=== PATIENT | female | born 1965 | race Caucasian/White ===

== ENCOUNTER 2022-07-20 09:49 | Outpatient (OUT) | payer OTHER, MEDICARE, SELFPAY ==
--- NOTE | 2022-07-20 10:27 | PM.CN ---
Consult Note: HPI Data of Consult Patient: known to practice within the last 3 years Consult date: 07/20/22 Requesting Physician: JOSE CHISHOLM NP Primary Care Provider: SHERINE EDWARDS Consult Narrative Reason for consult: back pain Narrative: She is here for f/u of low back and right buttock pain. [id number]. She has had TPI and SI injections in the past with good relief. Last SI joint injection 06/2021. She would like to schedule another SI joint inject. No new sensorimotor sx or bowel or bladder issues. No radiculopathy. Pin medication regimen controls her pain and assists in the ability to perform ADLs. cc:: CC: JOSE CHISHOLM NP Review of Systems ROS Status of ROS 10 or more systems reviewed and unremarkable except as noted in history and below Musculoskeletal Reports: back pain Exam Constitutional Documenting provider has reviewed patient's vital signs: yes Common normals: no apparent distress, oriented x3, no limitations, healthy appearing, alert and well nourished General appearance: cooperative, comfortable and well developed Nutritional appearance: obese Orientation/consciousness: Yes awake, Yes oriented to person, Yes oriented to place and Yes oriented to time [facility] Common normals: hearing grossly normal bilaterally, external ears normal, nasal mucous membranes and turbinates normal and moist oral mucous membranes Respiratory Common normals: normal respiratory effort, no retractions and no use of accessory muscles Effort & inspection: able to speak in complete sentences and symmetric chest movement Back & Pelvis Lumbar spine/lower back: normal to inspection, ROM limited, pain with ROM, paraspinal muscle tenderness and other soft tissue findings (positive paris right, positive facet loading, positive gaenslens right, ) Extremity Common normals: normal to inspection, full ROM, normal capillary refill and no pedal edema Other: muscle strength 5/5 bilat LE with intact sensation, positive thigh thrust right Assessment and Plan Assessment and Plan (1) Sacroiliac joint pain: (2) Lumbar spondylosis: (3) Muscle spasm: Plan schedule right SI joint injection percocet refill narcan rx
== END 2022-07-20 09:50 ==
PROVIDERS: PCP Family Medicine; Visit Provider Nurse Practitioner
DX: M47.816 Spondylosis without myelopathy or radiculopathy, lumbar region (principal); M62.830 Muscle spasm of back; M53.3 Sacrococcygeal disorders, not elsewhere classified
CPT/HCPCS: G0463

== ENCOUNTER 2022-08-07 09:22 | Day surgery (SDC) | payer OTHER, MEDICARE, SELFPAY ==
[2022-08-07 10:27] LABS: Glucometer 156 mg/dL (74-106)
[2022-08-07 10:29] VITALS: BP 121/72; PULSE 108; RESP 19; TEMP 36.6; O2SAT 100
[2022-08-07] MEDS: METHYLPREDNISOLONE ACETATE 40 MG/ML VIAL 20 MG INJ (11:13)
[2022-08-07] MEDS: BUPIVACAINE HCL 0.25% PF 25 MG/10 ML VIAL INJ (11:14)
--- NOTE | 2022-08-07 11:27 | W.PM.PROCNOT ---
Date of procedure: 08/07/22 Procedure: Right sacroiliac joint injection - diagnostic Preop diagnosis includes pain secondary to Sacroiliitis Postop diagnosis same Performed under fluoroscopic guidance Immediate complications none Anesthesia:none Solution used for injection: 2.5 milliliters 0.25% Marcaine Time out process compliant After informed consent obtained patient was brought to the procedure room placed in the prone position skin overlying the area was prepped and draped in a sterile fashion using betadine. 25 gauge spinal needle Insert over each of the target areas identified in fluoroscopy corresponding needles were advanced Under fluoroscopic guidance until the target/targets encountered , no indication of intravascular or Intraneuronal needle tip placement. Solution injected .needles removed post procedurally. patient transferred to recovery room in stable condition to be discharged home after meeting criteria Surgeon: Kenyon Bradford
[2022-08-07 11:28] VITALS: BP 177/90; BP 184/87; PULSE 95; PULSE 98; RESP 20; O2SAT 90; O2SAT 94
== END 2022-08-07 11:18 | disposition home or self-care (01) ==
LOC: SURGOUT 09:23
PROVIDERS: PCP Family Medicine; Visit Provider Anesthesiology Pain Medicine
DX: M46.1 Sacroiliitis, not elsewhere classified (principal)
CPT/HCPCS: 27096; 36415; 82948; J1030

== ENCOUNTER 2022-08-28 13:56 | Outpatient (OUT) | payer OTHER, MEDICARE, SELFPAY ==
--- NOTE | 2022-08-28 | CONS_ITS ---
CONSULTATION DATE: ??08/28/2022 TO:? Jonathan Bean M.D. CHIEF COMPLAINT:? Includes left sided neck pain, shoulder pain. HISTORY:? She reports the pain as being 5-7/10 pain, sharp in character, increased with activities such as lifting maneuvers, pushing/pulling maneuvers and cervical extension.? She feels most comfortable in the semi-recumbent position.? She has denied any changed in bowel and bladder habits or new sensorimotor changes in her upper extremities. EXAM:? Her examination is notable for patient having no clinical radiculopathy or myelopathy involving her upper extremities.? Patient has severe pain with cervical facet loading maneuvers and left side appeared to be most severe at approximately the C2-3, C3-4 level, with associated myofascial spasm of the cervical paravertebral muscles, also on the left side. RECOMMENDATIONS:? I recommend she proceed with cervical spine films.? I have placed a skin marker to identify which level was causing most of her pathology, and we will target those two levels, after reviewing her imaging study.? I have also increased the baclofen 10 mg pills, 1-2 pills t.i.d. as tolerated.? I have gone over the details of the procedure with the patient.? All her questions answered.? She agrees to proceed with the outlined plan. As part of providing excellent, safe, comprehensive care, the following was completed at our patient's visit: 1. A medication reconciliation and review to ensure accurate knowledge of current/active medications, including asking our patients to inform us about any juem-gru-bebawgq medications or herbal remedies/nutritional supplements/alternative remedies. 2. A review to specifically ensure our patients have had annual screening for: elevated body mass index (BMI, see intake chart for exact total), tobacco use, screening for depression, and screening for unhealthy alcohol use.? When screening is concerning, patients are provided with education and the specific recommendation to discuss the concerning health issue and treatment options with their primary care provider.? GINA
== END 2022-08-28 13:57 | disposition home or self-care (01) ==
LOC: PM 13:56
PROVIDERS: PCP Family Medicine; Visit Provider Nurse Practitioner
DX: M54.2 Cervicalgia (principal); M25.512 Pain in left shoulder
CPT/HCPCS: G0463

== ENCOUNTER 2022-08-28 15:25 | Outpatient (OUT) | payer OTHER, MEDICARE, SELFPAY ==
--- NOTE | 2022-08-28 16:17 | XR_ITS ---
[facility] [place] [id number] Patient Name: KARINA DE OLIVEIRA MRN: [id number] date: 1965 Sex: F Assigned Patient Location: [facility] Current Patient Location: Accession/Order Number: [id number] Exam Date: 08/28/2022 16:50 Report Date: 08/29/2022 07:43 At the request of: BILLY ALANIS Procedure: XR cervical spine w flex/ext EXAMINATION: XR cervical spine w flex/ext HISTORY: CERVICAL SPONDYLOSIS COMPARISON: No relevant comparison available. FINDINGS: BONES: Neutral projection demonstrates normal alignment with no acute fracture or spondylolisthesis. Moderate to severe degenerative spondylosis. Mnxl-za-woebpazl facet osteoarthropathy DISC SPACES: Moderate multilevel disc space narrowing PARASPINOUS: Negative. No paraspinous abnormality is seen. OTHER: No transient spondylolisthesis with flexion or extension XR/XR cervical spine w flex/ext IMPRESSION: Moderate to severe degenerative changes with no dynamic instability Electronically authenticated by: RYAN GOLDMAN Date: 08/29/2022 07:43
== END 2022-08-28 15:26 | disposition home or self-care (01) ==
LOC: RAD 15:34
PROVIDERS: Visit Provider Anesthesiology Pain Medicine
DX: M47.812 Spondylosis without myelopathy or radiculopathy, cervical region (principal); M54.2 Cervicalgia; M25.512 Pain in left shoulder
CPT/HCPCS: 72052; G0463

== ENCOUNTER 2022-10-30 06:58 | Day surgery (SDC) | payer OTHER, MEDICARE, SELFPAY ==
[2022-10-30 07:19] LABS: Glucometer 165 mg/dL (74-106)
[2022-10-30 07:23] VITALS: BP 107/67; PULSE 96; RESP 16; TEMP 36.6; O2SAT 93
[2022-10-30 07:55] VITALS: RESP 20
[2022-10-30 08:00] VITALS: BP 168/101; PULSE 102; O2SAT 93
[2022-10-30] MEDS: BUPIVACAINE HCL 0.25% PF 25 MG/10 ML VIAL 4 ML INJ (08:03)
[2022-10-30 08:05] VITALS: BP 180/108; PULSE 109; O2SAT 93
--- NOTE | 2022-10-30 08:16 | W.PM.PROCNOT ---
Date of procedure: 10/30/22 Pre-op diagnosis: Cervical Spondylosis Post-op diagnosis: same as pre-op Procedure: Left Cervical 2/3, 3/4 facet injection Under fluoroscopic guidance Solution injected: 2millilitersMarcaine 0.25% Anesthesia :none Immediate complications none Time out process compliant After informed consent obtained from the patient placed in the Prone proposition . area was prepped and draped in a sterile fashion using betadine. 25 gauge spinal needle inserted over each of the above mentioned target areas . [place] were directed towards the target under fluoroscopic guidance . after encountering each of the targets , no indication of intravascular intraneuronal or intrathecal needle tip placement. Then 0 .5 to 1 Milliliter was injected at each level. [place] removed postoperatively. patient transferred to recovery in stable condition to be discharged home after meeting criteria Anesthesia: Local Surgeon: Kenyon Bradford Condition: stable
== END 2022-10-30 08:11 | disposition home or self-care (01) ==
PROVIDERS: Visit Provider Anesthesiology Pain Medicine
DX: M47.812 Spondylosis without myelopathy or radiculopathy, cervical region (principal); Z79.84 Long term (current) use of oral hypoglycemic drugs
CPT/HCPCS: 36415; 36416; 64490; 64491; 82948

== ENCOUNTER 2022-11-08 10:13 | Outpatient (OUT) | payer OTHER, MEDICARE, SELFPAY ==
--- NOTE | 2022-11-08 10:32 | PM.CN ---
Consult Note: HPI Data of Consult Patient: known to practice within the last 3 years Requesting Physician: Chela Tijerina NP Primary Care Provider: Non-Staff Physician, MD Consult Narrative Reason for consult: f/u Narrative: Brian Weir a pleasant 57 year old female presents for evaluation of chronic neck pain. Recently had a Left Cervical 3/4 4/5 facet injection with >80% pain relief and functional improvement immediately following and hours after the procedure. Today rating pain 2/10 in left side of neck, 6/10 in right side of neck. Previously her left side was her main complaint and what she wanted to start with, she would like to discuss bilateral facet blocks today. cc:: CC: Chela Tijerina NP Review of Systems ROS Status of ROS 10 or more systems reviewed and unremarkable except as noted in history and below Musculoskeletal Reports: neck pain PFSH PFSH Medical History (Updated 11/08/22 @ 10:47 by Chela Tijerina NP) Surgical History Meds Home Medications and Allergies Home Medications Medication Instructions Recorded Confirmed Type alendronate 70 mg tablet 70 mg PO QWEEK 07/20/22 10/30/22 History allopurinol 300 mg tablet 300 mg PO DAILY 07/20/22 10/30/22 History apple cider vinegar 600 mg capsule mg PO 07/20/22 History aspirin 81 mg tablet,delayed 81 mg PO DAILY 07/20/22 10/30/22 History release (Adult Aspirin Regimen) baclofen 10 mg tablet 10 mg PO TID 07/20/22 10/30/22 History cholecalciferol (vitamin D3) 25 1,000 unit PO DAILY 07/20/22 10/30/22 History mcg (1,000 unit) capsule diclofenac sodium 75 mg 75 mg PO BID 07/20/22 10/30/22 History tablet,delayed release divalproex 500 mg tablet,delayed 500 mg PO BID 07/20/22 10/30/22 History release (Depakote) glucosamine [id number]-[id number] 1 tab PO DAILY 07/20/22 10/30/22 History krzysztof 1,500 mg-400 unit-100 mg tablet (Osteo Bi-Flex (5-Loxin)) glyburide 1.25 mg tablet 1.25 mg PO DAILY 07/20/22 10/30/22 History hydrochlorothiazide 25 mg tablet 25 mg PO DAILY 07/20/22 10/30/22 History lactobacillus combo no.13 1 1 cap PO DAILY 07/20/22 10/30/22 History billion cell capsule,delayed release (Probiotic Pearls Complete) multivitamin 1 tab PO DAILY 07/20/22 10/30/22 History oxycodone-acetaminophen 5 mg-325 1 tab PO DAILY 07/20/22 10/30/22 History mg tablet prasterone (dhea) 50 mg capsule 50 mg PO DAILY 07/20/22 10/30/22 History (DHEA) pregabalin 50 mg capsule (Lyrica) 50 mg PO TID 07/20/22 10/30/22 History trazodone 50 mg tablet 50 mg PO BEDTIME 07/20/22 10/30/22 History Allergies Allergy/AdvReac Type Severity Reaction Status Date / Time No Known Drug Allergies Allergy Verified 10/30/22 07:18 Exam Constitutional Documenting provider has reviewed patient's vital signs: yes Common normals: no apparent distress, oriented x3, healthy appearing, alert and well nourished General appearance: cooperative HENCT Common normals: normocephalic, hearing grossly normal bilaterally and moist oral mucous membranes Head and scalp: normocephalic Eye Common normals: PERRL Pupil: PERRL Neck & C-Spine Common normals: full ROM General: normal visual inspection Cervical spine: pain with cervical ROM Other: trigger point to right occipital area tenderness and pain at bilateral C3/4 4/5 facets predominately axial neck pain without radiculopathy Chest Common normals: inspection of chest normal Respiratory Common normals: normal respiratory effort, no retractions and no use of accessory muscles Extremity Common normals: normal to inspection and full ROM Neuro Common normals: oriented x3, CN's II-XII intact bilaterally, moves all extremities, no focal motor deficits, no sensory deficits noted and deep tendon reflexes 2+ bilaterally Sensorium/orientation: alert Gait (neuro): antalgic Motor exam: no movement abnormalities noted and strength abnormal (BUE 4/5) Psych Common normals: mental status grossly normal, thought process normal, cooperative, affect normal, speech normal and activity/motor behavior normal Speech: normal speech Thought process: normal thought process Results Additional Findings Additional findings: I have checked an OARRS report on this patient today and there are no aberrancies noted in the prescribing history.?? A drug screen was completed and reviewed within the last year, and if there has not been a drug screen completed we ordered one today to monitor higher risk, state monitored pain medication use. As part of providing excellent, safe, comprehensive care, the following was completed at our patient's visit: 1. A medication reconciliation and review to ensure accurate knowledge of current/active medications, including asking our patients to inform us about any qqgy-wfj-eywwedf medications or herbal remedies/nutritional supplements/alternative remedies. 2. A review to specifically ensure our patients have had annual screening for: elevated body mass index (BMI), tobacco use, screening for depression, and screening for unhealthy alcohol use. When screening is concerning, patients are provided with education and the specific recommendation to discuss the concerning health issue and treatment options with their primary care provider. Assessment and Plan Assessment and Plan (1) Cervical spondylosis: Assessment and Plan: The patient has had over 3 months of moderate to severe bilateral neck pain with functional impairment and inadequate response to conservative care including NSAIDS (unless there are contraindication such as concurrent blood thinners), multiple oral or topical pain medications, and home exercise program/physical therapy.? Patient has completed >6 weeks of guided home exercise program and/or formal physical therapy program without relief of their symptoms.? I have reviewed the imaging of the cervical spine and no red flags were identified.? The imaging reveals radiographic findings consistent with cervical spondylosis We discussed the risks and benefits of the procedure with the patient, and we are NOT planning on using sedation as outlined in the guidelines from Medicare unless there is a documented reason that sedation would be strongly recommended.?? The procedure will be completed with fluoroscopic guidance.? (2) Muscle spasm: Assessment and Plan: patient seeing massage therapist twice a week which helps with trigger points Plan based on exam and patients symptoms proceed with bilateral C3/4 4/5 MBB, this will be the second test block for the left side and first test block for the right side continue current medications continue HEP f/u after injection
== END 2022-11-08 10:14 | disposition home or self-care (01) ==
LOC: PM 10:13
PROVIDERS: Visit Provider Nurse Practitioner
DX: M47.812 Spondylosis without myelopathy or radiculopathy, cervical region (principal); M62.838 Other muscle spasm
CPT/HCPCS: G0463

== ENCOUNTER 2022-11-17 09:47 | Outpatient (OUT) | payer OTHER, MEDICARE, SELFPAY ==
[2022-11-17 10:28] LABS: Hematocrit 38.3 % (36.0-48.0); Hemoglobin 12.6 g/dL (12.0-16.0); Mean Corpuscular HGB Conc 32.9 g/dL (29.9-35.2); Mean Corpuscular Hemoglobin 32.1 pg (26.7-34.0); Mean Corpuscular Volume 97.5 fL (81.0-99.0); Mean Platelet Volume 10.5 fL (9.5-13.5); Platelet Count 282 10^3/uL (150-450); Red Blood Count 3.93 10^6/uL (4.20-5.40); Red Cell Distribution Width 13.9 % (11.0-15.0); White Blood Count 12.9 10^3/uL (4.0-11.0)
[2022-11-17 10:36] LABS: Estimated Average Glucose 151 mg/dL; Glycohemoglobin A1C 6.9 % (4.5-6.2)
[2022-11-17 10:41] LABS: Alanine Aminotransferase 71 U/L (14-59); Albumin Globulin Ratio 0.8; Albumin Level 3.6 g/dL (3.4-5.0); Alkaline Phosphatase 95 U/L (46-116); Anion Gap 13.4; Aspartate Amino Transferase 23 U/L (15-37); BUN Creatinine Ratio 27.3; Bilirubin Total 0.2 mg/dL (0.2-1.0); Carbon Dioxide 34.2 mmol/L (21.0-32.0); Chloride 99 mmol/L (98-107); Chol HDL Ratio 4.2; Cholesterol 255 mg/dL (<=200); Estimated GFR (African America >60 (>=60); Estimated GFR (Non-African Ame 57 (>=60); Globulin 4.4 g/dL; Glucose 167 mg/dL (74-106); HDL Cholesterol 61 mg/dL (40-60); Potassium 4.6 mmol/L (3.5-5.1); Sodium 142 mmol/L (136-145); Triglycerides 141 mg/dL (<=150); Uric Acid 6.4 mg/dL (2.6-6.0); VLDL CHOLESTEROL 28.2 mg/dL
[2022-11-17 11:26] LABS: Band Neutrophils Absolute 0.4 10^3/uL (0.0-0.3); Lymphocytes Absolute Manual 3.22 10^3/uL (1.20-3.80); Metamyelocytes Absolute Manual 0.12; Monocytes Absolute Manual 0.64 10^3/uL (0.30-0.80); Segmented Neut Absolute Manual 8.51 10^3/uL (1.4-6.5)
== END 2022-11-17 09:48 | disposition home or self-care (01) ==
PROVIDERS: PCP Internal Medicine; Visit Provider Internal Medicine
DX: E11.9 Type 2 diabetes mellitus without complications (principal); Z13.220 Encounter for screening for lipoid disorders; M10.9 Gout, unspecified
CPT/HCPCS: 36415; 80053; 80061; 83036; 84550; 85027

== ENCOUNTER 2023-01-01 09:02 | Day surgery (SDC) | payer OTHER, MEDICARE, SELFPAY ==
[2023-01-01 09:28] VITALS: BP 160/97; PULSE 103; RESP 16; TEMP 36.5; O2SAT 96
[2023-01-01 09:36] LABS: Glucometer 163 mg/dL (74-106)
[2023-01-01 10:29] VITALS: PULSE 72; RESP 16; O2SAT 90
[2023-01-01 10:30] VITALS: BP 150/93
[2023-01-01] MEDS: BUPIVACAINE HCL 0.25% PF 25 MG/10 ML VIAL 6 ML INJ (10:30)
[2023-01-01 10:32] VITALS: BP 149/94; PULSE 101; RESP 18; O2SAT 94
--- NOTE | 2023-01-01 11:52 | P.ON_ITS ---
Date of procedure: 01/01/23 Pre-op diagnosis: Cervical Spondylosis Post-op diagnosis: same as pre-op Procedure: Bilateral Cervical 3/4, 4/5 medial branch block Under fluoroscopic guidance Solution injected: 2millilitersMarcaine 0.25% Anesthesia :none Immediate complications none Time out process compliant After informed consent obtained from the patient placed in the Prone proposition . area was prepped and draped in a sterile fashion using Cloraprep .25 gauge spinal needle inserted over each of the above mentioned target areas . [place] were directed towards the target under fluoroscopic guidance . after encountering each of the targets , no indication of intravascular intraneuronal or intrathecal needle tip placement. Then 0 .5 to 1 Milliliter was injected at each level. [place] removed postoperatively. patient transferred to recovery in stable condition to be discharged home after meeting criteria Anesthesia: Local Surgeon: Kenyon Bradford Condition: stable
--- OUTSIDE RECORDS SUMMARY | 2023-01-29 22:10 | XMS_ITS | CCD ---
Author Name Unknown Address [address] [place] [address] Organization [facility] Care Team Providers Care Desktop Analyst Name Role Phone House DO, Sr Jonathan Klein Primary Care Provider [phone] NIKKIE BARCLAY Referring Unavailabl e CAMBRIDGE, SR JONATHAN Klein Primary Care Unavailable Ana Luisa Curtis Unavailable GRACE, DR BASURTO Primary Care Unavailable HOLM ., DR RICARDO Belcher Admitting Unavailable HOLM ., DR RICARDO Belcher Attending Unavailable PIERCE ., CRYS Consulting Unavailable HOLM ., DR RICARDO Belcher Admitting Unavailable HOUSE, DR BASURTO Primary Care Unavailable PIERCE ., CRYS Consulting Unavailable HOLM ., DR RICARDO Belcher Attending Unavailable HOLM ., DR RICARDO Belcher Admitting Unavailable HOUSE, DR BASURTO Primary Care Unavailable HOUSE, DR JONATHAN Trimble Unavailable HOLM ., DR RICARDO Belcher Attending Unavailable PIERCE ., CRYS Consulting Unavailable HOUSE, DR BASURTO Primary Care Unavailable HALKER ., JOSE Consulting Unavailable LAKSHMIPATHY ., NARENDRANATH Admitting Nellie vailable LAKSHMIPATHY ., NARENDRONALDATH Attending Nellie vailable PIERCE ., CRYS Consulting Unavailable HOLM ., DR RICARDO Belcher Admitting Unavailable HOUSE, DR BASURTO Primary Care Unavailable HOLM ., DR RICARDO Belcher Attending Unavailable PIERCE ., CRYS Consulting Unavailable HOLM ., DR RICARDO Belcher Admitting Unavailable HOUSE, DR BASURTO Primary Care Unavailable HOLM ., DR RICARDO Belcher Attending Unavailable HOUSE, DR BASURTO Primary Care Unavailable GAETANO, DR PATTIE Nieves Consulting Unavailable PIERCE ., CRYS Admitting Unavailable PIERCE ., CRYS Attending Unavailable PIERCE ., CRYS Consulting Unavailable HOUSE, DR BASURTO Admitting Unavailable HOUSE, DR BASURTO Primary Care Unavailable HOUSE, DR BASURTO Attending Unavailable HOUSE, DR BASURTO Consulting Unavailable SUSSY JONES Admitting Unavailable SUSSY JONES Attending Unavailable HOUSE, DR BASURTO Primary Care Unavailable GAETANO, DR PATTIE Nieves Consulting Unavailable [facility], SUSSY Dos Santos Consulting Unavailable CAMBRIDGE, DR BASURTO Attending Unavailable CAMBRIDGE, DR BASURTO Primary Care Unavailable CAMBRIDGE, DR BASURTO Admitting Unavailable CAMBRIDGE, DR JONATHAN Trimble Unavailable CAMBRIDGE, DR BASURTO Primary Care Unavailable GAETANO, DR PATTIE Nieves Consulting Unavailable LAKSHMIPATHY ., NARENDSABAS Admitting Nellie vailable LAKSHMIPATHY ., DEMETRIUSATH Attending Nellie vailable LAKSHMIPATHY ., BILLY Consulting Nellie vailable CAMBRIDGE, DR BASURTO Admitting Unavailable CAMBRIDGE, DR BASURTO Attending Unavailable CAMBRIDGE, DR BASURTO Primary Care Unavailable [place], DR RYAN Guzman Consulting Unavailable CAMBRIDGE, DR JONATHAN Trimble Unavailable ALTA ., DR RICARDO Belcher Admitting Unavailable CAMBRIDGE, DR BASURTO Primary Care Unavailable HOLM ., DR RICARDO Belcher Attending Unavailable HOLM ., DR RICARDO Belcher Consulting Unavailable HOLM ., DR RICARDO Belcher Admitting Unavailable HOUSE, DR BASURTO Primary Care Unavailable HOLM ., DR RICARDO Belcher Attending Unavailable HOLM ., DR RICARDO Belcher Consulting Unavailable PIERCE ., CRYS Trimble Unavailable PIERCE ., CRYS Trimble Unavailable CAMBRIDGE, DR BASURTO Primary Care Unavailable HOLM ., DR RICARDO Belcher Admitting Unavailable HOLM ., DR RICARDO Belcher Attending Unavailable LAKSHMIPATHY ., BILLY Consulting Nellie vailable CAMBRIDGE, DR BASURTO Primary Care Unavailable HOLM ., DR RICARDO Belcher Admitting Unavailable HOLM ., DR RICARDO Belcher Attending Unavailable PIERCE ., CRYS Consulting Unavailable Elle Hendricks Unavailable Medications Current Medications Medication Drug Class(es) Dates Sig (Normalized) Sig (Original) acetaminophen 325 mg / oxyCODONE hydrochloride 10 mg oral tablet (4 sources) Opioid Agonist take 1 tablet by alonso th every six hours Percocet 10-325 MG 1 tablet as needed Orally every 6 hrs Active take 1 tablet by alonso th once as needed oxyCODONE-acetaminophen (PERCOCET) 10-32 5 MG per tablet Percocet 10 mg-325 mg tablet Take 1 tablet as needed by oral route. 0 Active alendronic acid 70 mg oral tablet (4 sources) Bisphosphonate Start: 08-17-2021 take 1 tablet by mouth once alendronate (FOSAMAX) 70 MG tablet TAKE 1 TABLET BY MOUTH EVERY SATURDAY 0 08/17/2021 Active allopurinol 300 mg oral tablet (4 sources) Xanthine Oxidase Inhibitor take 1 tablet by mouth every twenty-four hours Allopurinol 300 MG 1 tablet Orally Once a day Active ALLOPURINOL PO T karolyn by mouth 0 Active ascorbic acid 500 mg oral ca psule (2 sources) Vitamin C Vitamin C 500 MG Orally Active take 1 tablet by mouth once sariah y ascorbic acid (VITAMIN C) 500 MG tablet Vitamin C 500 mg tablet Take 1 tablet every day by oral route. 0 Active Aspir-81 81 MG (3 sources) take 1 tablet by mouth once daily Aspir-81 81 MG 1 tablet Orally Once a day Active aspirin 81 mg delayed release oral tablet (1 source) Platelet Aggregation Inhibitor, Nonsteroidal Anti-inflammatory Drug take 1 tablet by mouth once daily aspirin 81 MG EC tablet aspirin 81 mg tablet,delayed release Take 1 tablet every day by oral route. 0 Active colchicine 0.6 mg oral tablet (3 sources) Start: 3 take 1 tablet by mouth every twenty-four hours Colchicine 0.6 MG 1 tablet Orally once daily for 30 days Apr, Active diclofenac sodium 75 mg delayed release oral tablet (4 sources) Nonsteroidal Anti-inflammatory Drug Start: 2 take 1 tablet by mouth twice daily diclofenac (VOLTAREN) 75 MG EC tablet TAKE 1 TABLET BY MOUTH TWICE DAILY 0 08/07/2021 Active Voltaren Active eletriptan 40 mg oral tablet (4 sources) Serotonin-1b and Serotonin-1d Receptor Agonist take 1 tablet by mouth every twenty-four hours Relpax 40 MG 1 tablet as needed one time Orally Once a day Active eletriptan (RELP AX) 40 MG tablet Relpax 40 mg tablet Take 1 tablet as needed by oral route. 0 Active famotidine 20 mg oral tablet (1 source) Histamine-2 Receptor Antagonist Start: 08-16-2021 take 1 tablet by mouth once daily famotidine (PEPCID) 20 MG tablet TAKE 1 TABLET BY MOUTH EVERY DAY 0 08/16/2021 Active glimepiride 1 mg oral tablet (1 source) Sulfonylurea Start: 06-05-2021 take 0.5 tablet by mouth once daily in the morning glimepiride (AMARYL) 1 MG tablet TAKE 1/2 TABLET BY MOUTH EVERY MORNING 0 06/05/2021 Active hydroCHLOROthiazide 25 mg oral tablet (1 source) Thiazide Diuretic Start: 08-16-2021 take 1 tablet by mouth once daily hydroCHLOROthiazide (HYDRODIURIL) 25 MG tablet TAKE 1 TABLET BY MOUTH EVERY DAY 0 08/16/2021 Active metFORMIN hydrochloride 500 mg oral tablet (4 sources) Biguanide Start: 08-07-2021 metFORMIN (GLUCOPHAGE) 500 MG tablet 1,000 mg in the morning and 1,000 mg in the evening. Take with meals. 0 08/07/2021 Active take 1 tablet by alonso th every twelve hours metFORMIN HCl 500 MG 1 tablet with meals Orally Twice a day Active methocarbamol 750 mg oral tablet (1 source) Muscle Relaxant Start: 08-15-2021 take 1 tablet by mouth once daily at bedtime methocarbamol (ROBAXIN) 750 MG tablet TAKE 1 TABLET BY MOUTH EVERY NIGHT AT BEDTIME 0 08/15/2021 Active methylPREDNISolone 4 mg oral tablet (1 source) Corticosteroid Medrol 4 MG as directed Orally As Directed for 6 days Active Multivitamins (3 sources) Multivitamins Orally Active Osteo Bi-Flex Adv Double St (3 sources) Osteo Bi-Flex Ad v Double St Orally Active Ozempic (0.25 or 0.5 MG/DOSE) (1 source) Ozempic (0.25 or 0.5 MG/DOSE) Active pregabalin 50 mg oral capsule (4 sources) take 1 capsule by mouth every eight hours Lyrica 50 MG 1 capsule Orally Three times a day Active take 1 capsule by mouth twice da jose martin pregabalin (LYRICA) 50 MG capsule Lyrica 50 mg capsule Take 1 capsule twice a day by oral route. 0 Active Probiotic (3 sources) Probiotic Active raNITIdine 150 mg oral tablet (3 sources) Histamine-2 Receptor Antagonist take 1 tablet by mouth twice daily Ranitidine HCl 150 MG 1 Tablet Orally bid Active Robaxin-750 750 MG (3 sources) take 1 tablet by mouth every four hours Robaxin-750 750 MG 1 tablet Orally every 4 hrs Active traZODone hydrochloride 50 mg oral tablet (1 source) Serotonin Reuptake Inhibitor Start: 2 take 1 tablet by mouth once daily at bedtime traZODone (DESYREL) 50 MG tablet TAKE 1 TABLET BY MOUTH EVERY NIGHT AT BEDTIME 0 08/17/2021 Active divalproex sodium 500 mg delayed release oral tablet (4 sources) Mood Stabilizer, Anti-epileptic Agent take 1 tablet by mouth every twelve hours Depakote 500 mg 1 tablet Orally twice a day Active Vitamin C 500 MG (2 sources) Vitamin C 500 MG Orally Active Problems Active Problems Problem Classification Problem Date Documented Date Episodic/Chronic Diabetes mellitus without complication (5 sources) Type 2 diabetes mellitus without complications; Translations: [TYPE 2 DM WITHOUT COMPLICATIONS] Onset: 07-05-2021 Chronic Essential hypertension (1 source) Essential (primary) hypertension; Translations: [ESSENTIAL PRIMARY HYPERTENSION] Onset: 04-16-2022 Chronic Gout and other crystal arthropathies (2 sources) Gout; Translations: [Gout, unspecified] Chronic Osteoarthritis (4 sources) Bilateral primary osteoarthritis of knee; Translations: [BILATERAL PRIM OSTEOARTHRITIS KNEE] Onset: 03-08-2022 Chronic Other connective tissue disease (1 source) Pain in left hand Episodic Other connective tissue disease (1 source) Personal history of other diseases of the musculoskeletal system and connective tissue Episodic Other nervous system disorders (1 source) Other chronic pain; Translations: [OTHER CHRONIC PAIN] Onset: 06-08-2022 Chronic Other non-traumatic joint disorders (2 sources) Pain in right wrist Episodic Other nutritional; endocrine; and metabolic disorders (3 sources) Hypercalcemia; Translations: [Hypercalcemia] Chronic Other screening for suspected conditions (not mental disorders or infectious disease) (1 source) Patient encounter status; Translations: [Encounter for screening for malignant neoplasm of cervix] Episodic Spondylosis; intervertebral disc disorders; other back problems (11 sources) Spondylosis without myelopathy or radiculopathy, lumbar region; Translations: [Spondylosis without myelopathy or radiculopathy, lumbosacral region] Onset: 07-19-2021 Chronic Unclassified (4 sources) LOW BACK PAIN, UNSPECIFIED; Translations: [LOW BACK PAIN, UNSPECIFIED] Onset: 06-23-2021 Past or Other Problems Problem Classification Problem Date Documented Da te Episodic/Chronic Other connective tissue disease (4 sources) Other muscle spasm; Translations: [OTHER MUSCLE SPASM] Onset: 11-01-2021 Episodic Other connective tissue disease (4 sources) Pain in right foot; Translations: [PAIN IN RIGHT FOOT] Onset: 07-05-2021 Episodic Other injuries and conditions due to external causes (4 sources) Unspecified injury of right wrist, hand and finger(s), initial encounter; Translations: [UNS INJ RT WRIST HAND FINGERS INIT] Onset: 11-16-2021 Episodic Other non-traumatic joint disorders (4 sources) Pain in left knee; Translations: [PAIN IN LEFT KNEE] Onset: 02-16-2022 Episodic Spondylosis; intervertebral disc disorders; other back problems (2 sources) Muscle spasm of back; Translations: [Sacrococcygeal disorders, not elsewhere classified] Onset: 07-05-2021 Episodic Unclassified (1 source) LOW BACK PAIN, UNSPECIFIED; Translations: [LOW BACK PAIN, UNSPECIFIED] Onset: 06-20-2021 Results Test Name Value Interpretation Reference Range Facil ity XR LSPINE 2_3 VIEWSon 2022 XR LSPINE 2_3 VIEWS EXAMINATION: XR LSPI NE 2_3 VIEWS HISTORY: Lumbar spondylosis ; chronic lower left back pain radiating into left buttock COMPARISON: XR L-spine 03/01/2015 FINDINGS: BONES: Mild left convex curvature of lumbar spine. Chronic mild-moderate compression fracture of L1. Stable mild grade 1 retrolisthesis of each lumbar level on the next lower level. Mild grade 1 anterior listhesis of L5 on S1. Moderate degenerative facet arthropathy L5-S1. DISC SPACES: Moderate narrowing of most lumbar levels, marked narrowing at L2-3. PARASPINOUS: Negative. No paraspinous abnormality is seen. OTHER: Skin surface marker posterior to left side of L4. IMPRESSION: 1. Stable L1 compression fracture and multilevel listhesis. 2. Progression of degenerative disc disease at each level, greatest at L2-3. Electronically authenticated by: PATTIE SALTER Date: 2022-06-07 11:15 Normal [facility] l CBC AUTO DIFFon 04-12-2022 BASO # 0.1 103/ul Normal 0.0-0.1 [facility] Comment on above: Performed By: #### C BC ####[facility] [address] [address]Dr. Ricky Valenzuela Basophils/100 WBC (Bld) 0.5 % Normal 0.2-2.0 [facility] Comment on above: Performed By: #### C BC ####[facility] [address] [address]Dr. Ricky Valenzuela EO # 0.3 103/ul Normal 0.0-0.7 [facility] Comment on above: Performed By: #### C BC ####[facility] [address] [id number]. Ricky Valenzuela Eosinophils/100 WBC (Bld) 3.0 % Normal 0.9-7.0 [facility] Comment on above: Performed By: #### C BC ####[facility] [address] [id number]. Ricky Valenzuela Erythrocyte distribution wid th (RBC) [Ratio] 14.8 % Normal 11.0-15.0 [facility] Comment on above: Performed By: #### C BC ####[facility] [address] [place], [place] [address]Dr. Ricky Valenzuela Hematocrit (Bld) [Volume fraction] 40.6 % Normal 3 6.0-48.0 [facility] Comment on above: Performed By: #### C BC ####[facility] [address] [place], [place] [address]Dr. Ricky Valenzuela Hemoglobin (Bld) [Mass/Vol] 13.5 g/dL Normal 12.0-16. 0 [facility] Comment on above: Performed By: #### C BC ####[facility] [address] [place], [place] [address]Dr. Ricky Valenzuela IG # 0.16 10e3/ul Critically high 0.00-0.03 The [facility] Comment on above: Performed By: #### C BC ####[facility] [address] [place], [place] [address]Dr. Ricky Valenzuela IG % 1.4 % Critically high 0.0-0.5 The [facility] Comment on above: Performed By: #### C BC ####[facility] [address] [place], [place] [id number]. Ricky Valenzuela LYMPH # 3.4 103/ul Normal 1.2-3.[address] [facility] Comment on above: Performed By: #### C BC ####[facility] [address] [place], [place] [id number]. Ricky Valenzuela Lymphocytes/100 WBC (Bld) 30.4 % Normal 20.5-60.0 [facility] Comment on above: Performed By: #### C BC ####[facility] [address] [address]Dr. Ricky Valenzuela MANUAL DIFF REQ NO Normal [facility] Comment on above: Performed By: #### C BC ####[facility] [address] [phone]. Ricky Valenzuela MCH (RBC) [Entitic mass] 31.8 pg Normal 26.7-34.0 [facility] Comment on above: Performed By: #### C BC ####[facility] [address] [address]Dr. Ricky Valenzuela MCHC (RBC) [Mass/Vol] 33.3 g/dL Normal 29.9-35.2 [facility] Comment on above: Performed By: #### C BC ####[facility] [address] [place], [place] [address]Dr. Ricky Valenzuela MCV (RBC) [Entitic vol] 95.5 fL Normal 81.0-99.0 [facility] Comment on above: Performed By: #### C BC ####[facility] [address] [place], [place] [address]DrPasquale Valenzuela MONO # 0.9 103/ul Critically high 0.3-0.8 [facility] Comment on above: Performed By: #### C BC ####[facility] [address] [address]Dr. Ricky Valenzuela Monocytes/100 WBC (Bld) 7.7 % Normal 1.7-12.0 [facility] Comment on above: Performed By: #### C BC ####[facility] [address] [place], [place] [address]DrPasquale Valenzuela NEUT # 6.3 103/ul Normal 1.4-6.5 [facility] Comment on above: Performed By: #### C BC ####[facility] [address] [place], [place] [address]DrPasquale Valenzuela Neutrophils/100 WBC (Bld) 57.0 % Normal 43.0-75.0 [facility] Comment on above: Performed By: #### C BC ####[facility] [address] [address]Dr. Ricky Valenzuela Platelet mean volume (Bld) [Entitic vol] 9.8 fL Normal 9.5-13.5 [facility] Comment on above: Performed By: #### C BC ####[facility] [address] [address]Dr. Ricky Nicolas PLT 246 103/ul Normal 150-[address] [facility] Comment on above: Performed By: #### C BC ####[facility] [address] [place], [place] [address]Dr. Ricky Nicolas RBC 4.25 106/ul Normal 4.20-5.40 [facility] Comment on above: Performed By: #### C BC ####[facility] [address] [place], [place] [address]Dr. Ricky Nicolas WBC 11.1 103/ul Critically high 4.0-11.0 [facility] Comment on above: Performed By: #### C BC ####[facility] [address] [place], [place] [address]Dr. Ricky Nicolas GLYCOHEMOGLOBIN A1Con 2022 ADA RECOMMENDATION SEE BELOW Normal [facility] Comment on above: Result Comment: ADA RECOMMENDED LIMIT 4.0 - 6.0 ADA THERAPEUTIC TARGET < 7.0 ACTION SUGGESTED > 7.0 Performed By: #### A 1C ####[facility] [address] [place], [place] [address]Dr. Lesleysharron Valenzuela Glucose [Mass/Vol] 160 mg/dL Normal [facility] Comment on above: Performed By: #### A 1C ####[facility] [address] [place], [place] [address]DrPasquale Ricky Nicolas HbA1c (Bld) [Mass fraction] 7.2 % Critically high 4.5 -6.2 [facility] Comment on above: Performed By: #### A 1C ####[facility] [address] [place], [place] [address]Dr. Ricky Valenzuela MICROALBUMIN, RAND URon 03-0 mALB <1.3 Normal <=30.0 [facility] Comment on above: Performed By: #### M ALBR #### [facility] [address] [address] [address] Ricky Valenzuela PROF 14(COMP METB)on 023 Albumin [Mass/Vol] 3.3 g/dL Critically low 3.4-5.0 [facility] Comment on above: Performed By: #### C MP #### [facility] [address] [address] [address] Ricky Valenzuela Albumin/Globulin [Mass ratio] 0.9 {ratio} Normal [facility] Comment on above: Performed By: #### C MP #### [facility] [address] [place] [address] Dr. Ricky Valenzuela ALP [Catalytic activity/Vol] 90 U/L Normal 46-116 [facility] Comment on above: Performed By: #### C MP #### [facility] [address] [address] [address] Ricky Valenzuela ALT [Catalytic activity/Vol] 42 U/L Normal 14-59 [facility] Comment on above: Performed By: #### C MP #### [facility] [address] [address] [address] Ricky Valenzuela Anion gap [Moles/Vol] 10.1 mmol/L Normal [facility] Comment on above: Performed By: #### C MP #### [facility] [address] [address] [address] Ricky Valenzuela AST [Catalytic activity/Vol] 21 U/L Normal 15-37 [facility] Comment on above: Performed By: #### C MP #### [facility] [address] [address] [address] Ricky Valenzuela Bilirubin [Mass/Vol] 0.3 mg/dL Normal 0.2-1.0 [facility] Comment on above: Performed By: #### C MP #### [facility] [address] [address] [address] Ricky Valenzuela Calcium [Mass/Vol] 9.8 mg/dL Normal 8.5-10.1 [facility] Comment on above: Performed By: #### C MP #### [facility] [address] [address] [address] Ricky Valenzuela Chloride [Moles/Vol] 99 mmol/L Normal 98-107 [facility] Comment on above: Performed By: #### C MP #### [facility] [address] [address] [address] Ricky Valenzuela CO2 [Moles/Vol] 33.7 mmol/L Critically high 21.0-32.0 [facility] Comment on above: Performed By: #### C MP #### [facility] [address] [place] [address] Dr. Ricky Valenzuela Creatinine [Mass/Vol] 0.94 mg/dL Normal 0.55-1.02 [facility] Comment on above: Performed By: #### C MP #### [facility] [address] [place] [address] Dr. Ricky Valenzuela EGFR-AF GIBRALTARIAN >60 Normal >=60 [facility] Comment on above: Performed By: #### C MP #### [facility] [address] [place] [address] Dr. Ricky Valenzuela EGFR-NON AF GIBRALTARIAN >60 Normal >=60 [facility] Comment on above: Performed By: #### C MP #### [facility] [address] [address] [address] Ricky Valenzuela Globulin (S) [Mass/Vol] 3.8 g/dL Normal [facility] Comment on above: Performed By: #### C MP #### [facility] [address] [place] [address] Dr. Ricky Valenzuela Glucose [Mass/Vol] 168 mg/dL Critically high 74-106 [facility] Comment on above: Performed By: #### C MP #### [facility] [address] [place] [address] Dr. Ricky Valenzuela Potassium [Moles/Vol] 4.8 mmol/L Normal 3.5-5.1 [facility] Comment on above: Performed By: #### C MP #### [facility] [address] [address] [address] Ricky Valenzuela Protein [Mass/Vol] 7.1 g/dL Normal 6.4-8.2 [facility] Comment on above: Performed By: #### C MP #### [facility] [id number] Ricky Valenzuela Sodium [Moles/Vol] 138 mmol/L Normal 136-145 [facility] Comment on above: Performed By: #### C MP #### [facility] [address] [place] [address] Dr. Ricky Valenzuela Urea nitrogen [Mass/Vol] 22.0 mg/dL Critically high 7.0-18 .0 [facility] Comment on above: Performed By: #### C MP #### [facility] [address] [place] [address] Dr. Ricky Valenzuela Urea nitrogen/Creatinine [Mass ratio] 23.4 mg/mg Normal [facility] Comment on above: Performed By: #### C MP #### [facility] [address] [place], [place] [id number] Dr. Ricky Valenzuela Cytologyon 08-30-2021 Cytology (NOTE) INTERPRETATION Vaginal material, (ThinPrep vial, Imaging-assisted review): Specimen Adequacy: Satisfactory for evaluation. Descriptive Diagnosis: Negative for intraepithelial lesion or malignancy. Pocket Assembler: CLARK Delacruz(ASCP) Electronically Signed Out zackary/09/07/2021 Source: A: Vaginal material, (ThinPrep vial, Imaging-assisted review) Clinical History Hysterectomy Surgery: Salpingostomy; Ovary removal Z12.4 Encounter for screening for malignant neoplasm of cervix GYNECOLOGIC CYTOLOGY REPORT Patient Name: KARINA DE OLIVEIRA [facility] Rec: [id number] Path Number: [id number] [facility] [employer] [facility] ANATOMIC PATHOLOGY [address] [place] [address]. [place], [place] [address] Normal [facility] Comment on above: Performed By: #### P PPVP #### [id number] [place] [address] Executive Services Administrator: Luca Cummins MD CBC AUTO DIFFon 08-09-2021 BASO # 0.1 103/ul Normal 0.0-0.1 [facility] Comment on above: Performed By: #### C BC #### [facility] [address] [place] [address] Dr. Ricky Valenzuela Basophils/100 WBC (Bld) 0.8 % Normal 0.2-2.0 [facility] Comment on above: Performed By: #### C BC #### [facility] [address] [place] [address] Dr. Ricky Valenzuela EO # 0.2 103/ul Normal 0.0-0.7 [facility] Comment on above: Performed By: #### C BC #### [facility] [address] [place] [address] Dr. Ricky Valenzuela Eosinophils/100 WBC (Bld) 2.1 % Normal 0.9-7.0 [facility] Comment on above: Performed By: #### C BC #### [facility] [address] [place] [address] Dr. Ricky Valenzuela Erythrocyte distribution wid th (RBC) [Ratio] 15.2 % Critically high 11.0-15.0 [facility] Comment on above: Performed By: #### C BC #### [facility] [address] [place] [address] Dr. Ricky Valenzuela Hematocrit (Bld) [Volume fraction] 41.5 % Normal 3 6.0-48.0 [facility] Comment on above: Performed By: #### C BC #### [facility] [address] [place] [address] Dr. Ricky Valenzuela Hemoglobin (Bld) [Mass/Vol] 13.5 g/dL Normal 12.0-16. 0 [facility] Comment on above: Performed By: #### C BC #### [facility] [address] [place] [address] Dr. Ricky Valenzuela IG # 0.42 10e3/ul Critically high 0.00-0.03 [facility] Comment on above: Performed By: #### C BC #### [facility] [address] [place] [address] Dr. Ricky Valenzuela IG % 3.8 % Critically high 0.0-0.5 [facility] Comment on above: Performed By: #### C BC #### [facility] [address] [place] [address] Dr. Ricky Valenzuela LYMPH # 3.3 103/ul Normal 1.2-3.8 [facility] Comment on above: Performed By: #### C BC #### [facility] [address] [place] [address] Dr. Ricky Valenzuela Lymphocytes/100 WBC (Bld) 29.1 % Normal 20.5-60.0 [facility] Comment on above: Performed By: #### C BC #### [facility] [address] [place] [address] Dr. Ricky Valenzuela MANUAL DIFF REQ NO Normal [facility] Comment on above: Performed By: #### C BC #### [facility] [address] [place] [address] Dr. Ricky Valenzuela MCH (RBC) [Entitic mass] 32.4 pg Normal 26.7-34.0 [facility] Comment on above: Performed By: #### C BC #### [facility] [address] [place] [address] Dr. Ricky Valenzuela MCHC (RBC) [Mass/Vol] 32.5 g/dL Normal 29.9-35.2 [facility] Comment on above: Performed By: #### C BC #### [facility] [address] [place] [address] Dr. Ricky Valenzuela MCV (RBC) [Entitic vol] 99.5 fL Critically high 81.0-99 .0 [facility] Comment on above: Performed By: #### C BC #### [facility] [address] [place] [address] Dr. Ricky Valenzuela MONO # 0.8 103/ul Normal 0.3-0.[address] [facility] Comment on above: Performed By: #### C BC #### [facility] [address] [place] [address] Dr. Ricky Valenzuela Monocytes/100 WBC (Bld) 7.5 % Normal 1.7-12.0 [facility] Comment on above: Performed By: #### C BC #### [facility] [address] [place] [address] Dr. Ricky Valenzuela NEUT # 6.3 103/ul Normal 1.4-6.[address] [facility] Comment on above: Performed By: #### C BC #### [facility] [address] [place] [address] Dr. Ricky Valenzuela Neutrophils/100 WBC (Bld) 56.7 % Normal 43.0-75.0 [facility] Comment on above: Performed By: #### C BC #### [facility] [address] [place] [address] Dr. Ricky Valenzuela Platelet mean volume (Bld) [Entitic vol] 9.8 fL Normal 9.5-13.5 [facility] Comment on above: Performed By: #### C BC #### [facility] [address] [place] [address] Dr. Ricky Valenzuela PLT 265 103/ul Normal 150-450 [facility] Comment on above: Performed By: #### C BC #### [facility] [address] [place] [address] Dr. Ricky Valenzuela RBC 4.17 106/ul Critically low 4.20-5.40 [facility] Comment on above: Performed By: #### C BC #### [facility] [address] [place] [address] Dr. Ricky Valenzuela WBC 11.2 103/ul Critically high 4.0-11.0 [facility] Comment on above: Performed By: #### C BC #### [facility] [address] [place] [address] Dr. Ricky Valenzuela GLYCOHEMOGLOBIN A1Con 2021 ADA RECOMMENDATION SEE BELOW Normal [facility] Comment on above: Result Comment: ADA RECOMMENDED LIMIT 4.0 - 6.0 ADA THERAPEUTIC TARGET < 7.0 ACTION SUGGESTED > 7.0 Performed By: #### A 1C ####[facility] [address] [place] [id number] Valenzuela Glucose [Mass/Vol] 183 mg/dL Normal [facility] Comment on above: Performed By: #### A 1C ####[facility] [address] [place] [id number] Valenzuela HbA1c (Bld) [Mass fraction] 8.0 % Critically high 4.5 -6.2 [facility] Comment on above: Performed By: #### A 1C ####[facility] [address] [place] [address]DrPasquale Valenzuela LIPID PROFILEon 08-09-2021 CHOL-HDL RATIO NORM SEE BELOW Normal [facility] [place] Comment on above: Result Comment: 3.3 - 4.4 LOW RISK 4.4 - 7.1 AVERAGE RISK 7.1 - 11.0 MODERATE RISK >11.0 HIGH RISK Performed By: #### C MP, LIPID #### [facility] [address] [place] [address] [address] Ricky Valenzuela Cholesterol [Mass/Vol] 239 mg/dL Critically high <=200 [facility] Comment on above: Performed By: #### C MP, LIPID #### [facility] [address] [place] [address] [address] Ricky Valenzuela Cholesterol in HDL [Mass/Vol] 36 mg/dL Critically low 40 -60 [facility] Comment on above: Performed By: #### C MP, LIPID #### [facility] [address] [address] [address] Ricky Valenzuela Cholesterol in LDL [Mass/Vol] 164.2 mg/dL Normal [facility] Comment on above: Performed By: #### C MP, LIPID #### [facility] [address] [place] [address] [address] Ricky Valenzuela Cholesterol.total/Cholestero l in HDL [Mass ratio] 6.6 {ratio} Normal [facility] Comment on above: Performed By: #### C MP, LIPID #### [facility] [address] [address] [address] Ricky Valenzuela HDL NORMAL > or = 60 mg/dl - LO W CARDIOVASCULAR RISK <40 mg/dl - HIGH CARDIOVASCULAR RISK Normal [facility] Comment on above: Performed By: #### C MP, LIPID #### [facility] [address] [address] [address] Ricky Valenzuela LDL CALC NORMAL SEE BELOW Normal [facility] Comment on above: Result Comment: <100 mg/dl OPTIMAL 100 - 129 mg/dl NEAR OR ABOVE OPTIMAL 130 - 159 mg/dl BORDERLINE HIGH 160 - 189 mg/dl HIGH >190 mg/dl VERY HIGH Performed By: #### C MP, LIPID #### [facility] [address] [address] [address] Ricky Valenzuela Triglyceride [Mass/Vol] 194 mg/dL Critically high <=150 [facility] Comment on above: Performed By: #### C MP, LIPID #### [facility] [address] [place] [address] [address] Ricky Valenzuela VLDL CALC 38.8 mg/dL Normal [facility] Comment on above: Performed By: #### C MP, LIPID #### [facility] [id number] Ricky Valenzuela MICROALBUMIN, RAND URon 07-13 mALB 13.1 mg/L Normal <=30.[address] [facility] Comment on above: Performed By: #### M ALBR ####[facility] [address] [place], [place] [address]ZpDr. Ricky Valenzuela PROF 14(COMP METB)on 022 Albumin [Mass/Vol] 3.3 g/dL Critically low 3.4-5.0 [facility] Comment on above: Performed By: #### C MP, LIPID #### [facility] [address] [address] [address] Ricky Valenzuela Albumin/Globulin [Mass ratio] 0.8 {ratio} Normal [facility] Comment on above: Performed By: #### C MP, LIPID #### [facility] [address] [address] [address] Ricky Valenzuela ALP [Catalytic activity/Vol] 93 U/L Normal 46-116 [facility] Comment on above: Performed By: #### C MP, LIPID #### [facility] [address] [address] [address] Ricky Valenzuela ALT [Catalytic activity/Vol] 37 U/L Normal 14-59 [facility] Comment on above: Performed By: #### C MP, LIPID #### [facility] [address] [address] [address] Ricky Valenzuela Anion gap [Moles/Vol] 10.9 mmol/L Normal [facility] Comment on above: Performed By: #### C MP, LIPID #### [facility] [address] [address] [address] Ricky Valenzuela AST [Catalytic activity/Vol] 10 U/L Critically low 15- 37 [facility] Comment on above: Performed By: #### C MP, LIPID #### [facility] [address] [place] [address] [address] Ricky Valenzuela Bilirubin [Mass/Vol] 0.2 mg/dL Normal 0.2-1.0 [facility] Comment on above: Performed By: #### C MP, LIPID #### [facility] [address] [address] [address] Ricky Valenzuela Calcium [Mass/Vol] 9.0 mg/dL Normal 8.5-10.1 [facility] Comment on above: Performed By: #### C MP, LIPID #### [facility] [address] [address] [address] Ricky Valenzuela Chloride [Moles/Vol] 100 mmol/L Normal 98-107 [facility] Comment on above: Performed By: #### C MP, LIPID #### [facility] [address] [address] [address] Ricky Valenzuela CO2 [Moles/Vol] 32.2 mmol/L Critically high 21.0-32.0 [facility] Comment on above: Performed By: #### C MP, LIPID #### [facility] [address] [address] [address] Ricky Valenzuela Creatinine [Mass/Vol] 0.95 mg/dL Normal 0.55-1.02 [facility] Comment on above: Performed By: #### C MP, LIPID #### [facility] [address] [address] [address] Ricky Valenzuela EGFR-AF GIBRALTARIAN >60 Normal >=60 [facility] Comment on above: Performed By: #### C MP, LIPID #### [facility] [address] [address] [address] Ricky Valenzuela EGFR-NON AF GIBRALTARIAN >60 Normal >=60 [facility] Comment on above: Performed By: #### C MP, LIPID #### [facility] [address] [address] [address] Ricky Valenzuela Globulin (S) [Mass/Vol] 4.2 g/dL Normal [facility] Comment on above: Performed By: #### C MP, LIPID #### [facility] [address] [address] [address] Ricky Valenzuela Glucose [Mass/Vol] 200 mg/dL Critically high 74-106 [facility] Comment on above: Performed By: #### C MP, LIPID #### [facility] [address] [address] [address] Ricky Valenzuela Potassium [Moles/Vol] 4.1 mmol/L Normal 3.5-5.1 [facility] Comment on above: Performed By: #### C MP, LIPID #### [facility] [address] [address] [address] Ricky Valenzuela Protein [Mass/Vol] 7.5 g/dL Normal 6.4-8.2 [facility] Comment on above: Performed By: #### C MP, LIPID #### [facility] [address] [address] [address] Ricky Valenzuela Sodium [Moles/Vol] 139 mmol/L Normal 136-145 [facility] Comment on above: Performed By: #### C MP, LIPID #### [facility] [address] [place], [place] [address] Dr. Ricky Valenzuela Urea nitrogen [Mass/Vol] 13.0 mg/dL Normal 7.0-18.0 [facility] Comment on above: Performed By: #### C MP, LIPID #### [facility] [address] [place], [place] [address] Dr. Ricky Valenzuela Urea nitrogen/Creatinine [Mass ratio] 13.7 mg/mg Normal [facility] Comment on above: Performed By: #### C MP, LIPID #### [facility] [address] [place], [place] [address] Dr. Ricky Valenzuela POINT OF CARE GLUCOSEon 06-12 Glucose [Mass/Vol] 176 mg/dL Critically high 74-106 [facility] Comment on above: Performed By: #### P OCGLUC #### [facility] [address] [address] [address] Ricky Valenzuela Vital Signs Date Time Vital Sign Value Performing Clinician Facility 01-18-2023 09:10-0500 Body height 156.21 cm Elle Dejesusmond Other [facility] Other 01-18-2023 09:10-0500 Body mass index (BMI) [Ratio] 42.82 kg/m2 Elle Ruthie Other [facility] Other 01-18-2023 09:10-0500 Body temperature 98.2 [degF] Elle Dejesusmond Other [facility] Other 01-18-2023 09:10-0500 Body weight 104.51 kg Elle Dejesusmond Other [facility] Other 01-18-2023 09:10-0500 Diastolic blood pressure 92 mm[Hg] Elle Ruthie Other [facility] Other 01-18-2023 09:10-0500 Respiratory rate 18 /min Elle Hendricks Other [facility] Other 01-18-2023 09:10-0500 SaO2% (BldA) [Mass fraction] 97 % Elle Hendricks Other [facility] Other 01-18-2023 09:10-0500 Systolic blood pressure 145 mm[Hg] Elle Hendricks Other [facility] Other Encounters Encounter Date Encounter Type Care Provider Facility Start: 01-18-2023 End: 01-18-2023 ambulatory Elle Hendricks Other [facility] Other Start: 01-18-2023 Office outpatient vi sit 15 minutes Elle Hendricks [facility] Start: 09-19-2022 End: 09-19-2022 ambulatory Ana Luisa Curtis Other [facility] Other Start: 09-19-2022 Telephone encounter Ana Luisa Zaldivar [facility] Start: 07-12-[address] JONATHAN EDWARDS Facili ty:[facility]1 Start: 06-07-2022 End: 06-08-[address] JONATHAN EDWARDS Facility:[facility] Start: 05-02-2022 End: 05-02-2022 ambulatory Ana Luisa Curtis Other [facility] Other Start: 05-02-2022 Office outpatient ne w 30 minutes Ana Luisa Curtis [facility] Start: 04-12-2022 End: 04-13-[address] JONATHAN EDWARDS Facility:[facility] Start: 03-08-2022 End: 03-09-[address] JONATHAN EDWARDS Facility:[facility] Start: 02-16-2022 End: 02-17-[address] JONATHAN EDWARDS Facility:[facility] Start: 02-09-2022 End: 02-10-[address] RICARDO HOLM . Facility:[facility] Start: 11-16-2021 End: 11-17-[address] JONATHAN EDWARDS Facility:[facility] Start: 11-01-2021 End: 11-02-2021 ambulatory CRYS PIERCE . Facility:[facility] Start: 08-30-2021 End: 08-31-2021 ambulatory NIKKIE BARCLAY [facility] Start: 08-30-2021 End: 08-30-2021 Subsequent hospital visit by physician Sr Kaycee DO Work Phone: [facility] Comment on above: Routine cervical sme ar Start: 08-16-2021 Encounter for genera l adult medical examination without abnormal findings DR RIACRDO HOLM . [facility] Start: 08-09-2021 End: 08-10-2021 Encounter for general adult medical examination without abnormal findings DR RICARDO HOLM . Facility:[facility] Start: 08-09-2021 End: 08-10-[address] RICARDO HOLM . Facility:[facility] Start: 07-19-2021 End: 07-20-2021 ambulatory CRYS PIERCE . Facility:[facility] Start: 07-05-2021 End: 07-06-2021 ambulatory SUSSY JONES Facility:[facility] Start: 07-04-2021 End: 07-04-[address] RICARDO HOLM . Facility:[facility] Start: 06-20-2021 End: 06-21-[address] RICARDO HOLM . Facility:[facility]1 Procedures Date Procedure Procedure Detail Performing Clinician Start: 08-30-2021 Microscopic observat ion [Identifier] in Cervix by Cyto stain [facility] DO Work Phone: Plan of Treatment Date Care Activity Detail Author Start: 08-30-2024 Screening for malignant neoplasm of cervix [facility] Start: 09-04-2022 End: 09-04-2022 Patient encounter procedure 09/04/2022 Office Visit Obstetrics and Gynecology Nikkie Barclay, [employer]UCLE[employer] TECHNICIAN - CN [address] [facility] [address] [place] [address] [facility] Start: 10-12-2021 Influenza vaccination Flu vaccine (#1) [facility] Start: 10-21-2013 Screening for malignant neoplasm of breast Breast cancer [facility] [employer] Start: 10-21-2013 Shingles vaccine (1 of 2) Shingles vaccine (1 of 2) [facility] [employer] Start: 10-21-2008 Screening for malignant neoplasm of colon [facility] [employer] Start: 2003 Lipid panel Lipids [facility] [employer] Start: 10-21-1998 Diabetes screen Diabetes screen [facility] [employer] Start: 10-21-1993 Screening for malignant neoplasm of cervix HPV (without or with Pap) [facility] [employer] Start: 10-21-1982 DTaP/Tdap/Td vaccine (1 - Tdap) DTaP/Tdap/Td vaccine (1 - Tdap) [facility] [employer] Start: 10-21-1981 Hepatitis C screening Hepatitis C screen [email or web address] [employer] Start: 10-21-1978 HIV screening HIV screen [facility] [employer] Start: 1975 Depression Screen Depression Screen [facility] [employer] Start: 04-20-1964 COVID-19 Vaccine (#1) COVID-19 Vaccine (#1) [facility] [employer] End: 08-30-2021 Cytopathology procedure, preparation of smear, genital source [facility] Routine Routine cervical smear 1 Occurrences starting 08/30/2021 until 08/30/2021 [facility] [employer] Work Phone: Comment on above: 1 Occurrences starti ng 08/30/2021 until 08/30/2021 Payers Date Payer Category Payer Unknown [id number] 2.16.8 [id number] 1965 Unknown [id number] 2.16.84 [id number] 1963 Unknown [id number] 2.16.84 0.1.586401.3.579.2.593 1963 Unknown [id number] 2.16.84 0.1.224376.3.579.2.593 1963 Unknown [id number] 2.16.84 0.1.623488.3.579.2.593 1963 Unknown [id number] 2.16.84 0.1.490121.3.579.2.593 1963 Unknown [id number] 2.16.84 0.1.115477.3.579.2.593 1963 Unknown [id number] 2.16.84 0.1.096213.3.579.2.593 1963 Unknown [id number] 2.16.84 0.1.265795.3.579.2.593 1963 Unknown [id number] 2.16.84 0.1.032534.3.579.2.593 1963 Unknown [id number] 2.16.84 0.1.803715.3.579.2.593 1963 Unknown [id number] 2.16.84 0.1.214789.3.579.2.593 1963 Unknown [id number] 2.16.84 0.1.089394.3.579.2.593 1963 Unknown [id number] 2.16.84 0.1.740605.3.579.2.593 1963 Unknown [id number] 2.16.84 0.1.967835.3.579.2.593 1963 Unknown [id number] 2.16.84 0.1.959380.3.579.2.593 1963 Unknown [id number] 2.16.84 0.1.930106.3.579.2.593 1961 Medicare [id number] 1.2 .[id number] 1959 Unknown [id number] 1.2.8 [id number] 1959 Unknown [id number] 2.16.8 [id number] Social History Date Type Detail Facility Start: 08-30-2021 Tobacco smoking status ORIS Smokes tobacco daily [employer] Phone: History of tobacco use Cigarette Smoker [employer] Phone: Start: 08-30-2021 Tobacco use and exposure Smokeless tobacco non-user [employer] Phone: Start: 08-30-2021 Alcohol intake Current drinke r of alcohol (finding) [employer] Phone: Start: 08-30-2021 History SDOH Alcohol Comment occasional [employer] Phone: Start: 1965 Sex Assigned At Not on file B ON [employer] Phone: Start: 08-20-2021 End: 08-30-2021 Exposure to SARS-CoV-2 (event) Not sure [employer] Sex Assigned At Sex Assigned At [facility] Other Medical Equipment Procedure Code Equipment Code Equipment Origin al Text Equipment Identifier Dates USE TO TEST BLOO D SUGAR TWICE DAILY [id number] Start: 06-08-2021 Clinical Notes 06-20-2021 to 01-18-2023 Note Date & Type Note Facility 01-18-2023 Evaluation note Encounter Date Diagnosis Assessment Notes Jan, Left hand pain (ICD-10 - M79.642) Drink plenty fluids, get plenty of rest. Take the Medrol Dosepak as prescribed until gone. Be aware your blood sugars may be elevated while on the Medrol Dosepak. Continue home medications as prescribed. Call your orthopedic doctor today for an appointment for further evaluation of this complaint. Take Tylenol or Motrin as needed for pain. Go to the ER for worsening symptoms or concerns I reviewed the x-ray results of the left hand x-ray that was performed at [facility] which revealed degenerative changes in the hand as well as a remote avulsion fracture of the thumb. Patient states her family doctor is treating her for gout in her hand. Jan, History of gout (ICD-10 - Z87.39) Jan, Other Gout material was printed [facility] Other 08-09-2023 Evaluation note* Encounter Date Diagnosis Assessment Notes Treatment Notes Treatment Clinical Notes Sep, Right wrist pain (ICD-10 - M25.531) [facility] Other 04-27-2023 NoteCONSULTATION CONSULTATION DATE: 06/07/2022 TO: Jonathan Edwards M.D. CHIEF COMPLAINT: Includes left lower back pain. HISTORY: She reports the pain as being 5-7/10 pain, sharp in character, increased with activities such as standing, walking and performing transitioning maneuvers. Patient feels most comfortable in the semi-recumbent position. She denies any change in bowel and bladder habits or new sensorimotor changes in the lower extremities. MEDICATIONS: Includes Percocet 5 mg daily. She reports it does improve her quality of life, level of function and sleep pattern when she does take the medication. She the Robaxin is not as helpful as it had been in the past. She takes 750 mg at h., as well as Lyrica 50 mg t.i.d. EXAM: Notable for patient having no clinical radiculopathy or myelopathy involving the lower extremities. Patient has severe pain with lumbar facet loading maneuvers occurring on the left side from L4-S1 with associated myofascial spasm of the lumbar paravertebral muscles. IMPRESSION: Our impression is patient appears to be have chronic pain secondary to lumbosacral spondylosis with facet loading pain clinically, myofascial dysfunction involving the lumbar paravertebral muscles. RECOMMENDATIONS: Recommend she discontinue Robaxin secondary to ineffectiveness. We will trial her on baclofen 10 mg pills, half to one up to t.i.d. as tolerated. Initiate aquatic therapy and proceed with lumbosacral spine film, PA and lateral views. Will see the patient back in four weeks' time or sooner if needed. As part of providing excellent, safe, comprehensive care, the following was completed at our patient's visit: 1. A medication reconciliation and review to ensure accurate knowledge of current/active medications, including asking our patients to inform us about any [id number] medications or herbal remedies/nutritional supplements/alternative remedies. 2. A review to specifically ensure our patients have had annual screening for: elevated body mass index (BMI, see intake chart for exact total), tobacco use, screening for depression, and screening for unhealthy alcohol use. When screening is concerning, patients are provided with education and the specific recommendation to discuss the concerning health issue and treatment options with their primary care provider.[id number] Evaluation note * Encounter Date Diagnosis Assessment Notes Treatment Notes Treatment Clinical Notes Apr, Right wrist pain (ICD-10 - M25.531) Karina presents with a complaint of intermittent right wrist pain. Radiographs reviewed and discussed with patient. The imaging appears unremarkable no abnormality or fracture present. Patient states she does have a history of gout. She is on a maintenance dose of Allopurinol. She was tried on a dose of oral steroids per her PCP, she states that did not offer much relief. I have a suspicion that the patient's pain may have been secondary to a gout attack, as she states she does not currently have any pain and has not had the pain for about 2 months. I recommend that patient use topical Voltaren Gel as needed for any pain that may occur. She is encouraged to call should her wrist flare again. We discussed future treatments such as therapy and cortisone injections if needed. We will continue to monitor. Patient voices understanding and is agreeable to treatment plan. [facility] Other 01-26-2023 NoteCONSULTATION PROCEDURE DATE: 03/08/2022 PREOPERATIVE DIAGNOSIS: Bilateral knee osteoarthritis. POSTOPERATIVE DIAGNOSIS: Bilateral knee osteoarthritis. PROCEDURE: Bilateral knee injections. Subsequent to obtaining informed consent, the patient was placed in a sitting and dependent leg position on the table. Each knee was sterilized with an alcohol prep. A 25 gauge needle with 0.125% Marcaine and 40 mg of Kenalog was placed to the medial anterior aspect of each knee. Negative heme. Medication was injected slowly, and patient tolerated the procedure well. Patient did have full range of motion with pain improvement following the injection. She will be followed up in the clinic.[facility] [id number] NotePROCEDURE: XR KNEE LT 4V or > HISTORY: Pain in left knee , chronic COMPARISON: None. FINDINGS: BONES:Degenerative osteophytes along the articular margins of all 3 compartments. Slight irregularity of the articular surface of the medial compartment. Suspect narrowing of the anterior joint space. No fracture or dislocation. SOFT TISSUES:No visible soft tissue swelling. EFFUSION:None visible. OTHER: Negative. IMPRESSION: 1. Moderate degenerative changes of the left knee. Consider MRI for further evaluation. Electronically authenticated by: PATTIE SALTER Date: 2022-02-16 11:29[facility]12-30-2022 NoteCONSULTATION CONSULTATION DATE: 02/09/2022 HISTORY OF PRESENT ILLNESS: This is a 56-year-old female who returns to the clinic for a three month follow up for chronic lower back pain and knee pain. Primarily, she is having bilateral knee pain today. She does have known osteoarthritis with moderate joint space narrowing. She describes her pain as 8/10, sharp and stiff. Standing, walking, twisting, turning, stairs and bending aggravate her pain greatly. She does use Biofreeze and, with rest, she can improve her symptoms. Medications include baby aspirin, Lyrica 50 mg t.i.d. , Percocet 5/325 daily p.r.n., Robaxin 750 mg q.h.s. and a multivitamin regimen. She denies any new vasomotor weakness or pain pattern. Patient's REVIEW OF SYSTEMS / PAST MEDICAL HISTORY / ALLERGIES and IMAGES have been reviewed and noted in the chart. PHYSICAL EXAM: VITAL SIGNS: Blood pressure 124/84, heart rate is 84. Temperature is 97.1. She is 5'2 , weighs 105.7 kg. GENERAL IMPRESSION: Pleasant, appropriate, in no acute distress. FOCUSED EXAM - MUSCULOSKELETAL: Patient walks unassisted with a stable gait. She has guarded range of motion in flexion and extension to bilateral knees. No crepitus appreciated bilaterally. Point tenderness to the anterior medial aspect. Motor is 4/5 bilaterally. NEUROLOGICAL: Patient is cognitively intact. Negative polyneuropathy. Reflexes are +2 bilaterally. BACK: Range of motion is functional in lateral rotation and flexion/extension. Paravertebral muscles are non-spasmodic. Bela's point mildly tender bilaterally with no referral pain. FABERs and compression tests are negative. DIAGNOSIS: Bilateral knee osteoarthritis, chronic lower back pain. PLAN: We do have an updated right knee x-ray; however, we will obtain a left knee x-ray due to lack of imaging. We will pre-authorize for bilateral knee injections and bring her back to the clinic upon authorization. We will refill her Percocet, Robaxin and trazodone at the set dose and frequency. U-Tox completed in the office today. Patient agrees with this plan.[facility] [id number] NotePROCEDURE: XR WRIST RT MIN 3 V COMPARISON: None. HISTORY: Injury of right wrist FINDINGS: BONES:No acute fracture or dislocation. Corticated bone fragment identified along the first carpometacarpal joint [degenerative in nature SOFT TISSUES:Moderate diffuse soft tissue swelling EFFUSION:None visible. OTHER: Negative. IMPRESSION: Soft tissue swelling, no acute fracture Electronically authenticated by: RYAN GOLDMAN Date: 2021-11-16 18:59[facility] [id number] NoteCONSULTATION CONSULTATION DATE: 11/01/2021 HISTORY OF PRESENT ILLNESS: This is a 56-year-old female, returning to the clinic for a three month follow up for chronic lower back pain and bilateral SI pain. Patient last had a bilateral SI joint injection in June of 2021, which proved very beneficial. The patient has been active within this past month and has, what she feels is a slight flare up in her pain. She does take Robaxin 750 mg at h.s., Lyrica 50 mg t.i.d. and Percocet 5/325 daily p.r.n. She feels her pain is managed well. At rest, her pain is 3/10. With activity, it is 6/10. Activities such as twisting, pushing, pulling, lying flat, standing, walking and stairs aggravate her pain. Patient is a diabetic. Last A1c she reports being approximately 8.0. She denies any new radicular pain or vasomotor changes. Patient's REVIEW OF SYSTEMS / PAST MEDICAL HISTORY / ALLERGIES and IMAGES have been reviewed and they are noted on the chart. PHYSICAL EXAM: VITAL SIGNS: Blood pressure 118/79, heart rate is 99. Temperature is 97.5. She is 5'2 and weighs 103 kg. GENERAL IMPRESSION: Pleasant, appropriate, no acute distress. FOCUSED EXAM - BACK: Range of motion is functional in lateral rotation and flexion/extension. Mild reproduction of spinal axial pain noted along right with compression of L4, L5 that is non-radiating. Bela's point tender to the left with positive jump response to compression. Pain does radiate to the groin indicative of left chronic sacroiliitis. FABERs, compression and thigh thrust tests are positive. MUSCULOSKELETAL: Motor is intact, 4/5 bilaterally. Patient walks with a steady, antalgic gait. Does not use an assistive device. NEUROLOGICAL: Radicular sensory is intact. Negative polyneuropathy. DIAGNOSIS: Left gluteal spasm, chronic lower back pain and left sacroiliitis. PLAN: Patient will receive a left gluteal trigger point injection in the clinic which she does agree to. I did encourage the use of Voltaren 1% gel, as well as home stretches for her back and her gluteal region. She will be seen in the clinic in three months' time unless otherwise indicated. Patient agrees with this plan.[facility] [id number] NoteCONSULTATION PROCEDURE DATE: 11/01/2021 PRE AND POSTOPERATIVE DIAGNOSIS: Left gluteal spasms. PROCEDURE: Left gluteal trigger point injection x1. Subsequent to obtaining informed consent, the patient was placed in the upright standing forward flexion position. Alcohol prep was used to sterilize the site. 25-gauge needle with 0.125% Marcaine and 40 mg of Kenalog for a total dose of 3 mL was used. The needle was placed to rest inside the left gluteal trigger zone, negative heme. Medication was injected slowly in a fan-like pattern and the patient tolerated the procedure well. She will be followed up in the clinic.[facility] [id number] NoteCONSULTATION PROCEDURE DATE: 08/09/2021 PREOPERATIVE DIAGNOSIS: Bilateral lumbar paravertebral spasms. POSTOPERATIVE DIAGNOSIS: Bilateral lumbar paravertebral spasms. PROCEDURE: Bilateral lumbar trigger point injections. Subsequent to obtaining informed consent, the patient was placed in a standing forward flexion position. Alcohol prep was used to sterilize the site. A 25 gauge needle with 0.125% Marcaine and 40 mg of Kenalog was divided into two doses. The needle was placed inside each trigger, left and right lumbar area at level of L4. Negative heme. Medication was injected in a fan-like pattern. Patient tolerated procedure well and will be followed up in the clinic. [facility] Signed and Approved by: CRYS PIERCE . 08/10/2021 13:37:00[facility] [id number] NoteCONSULTATION CONSULTATION DATE: 07/19/2021 HISTORY OF PRESENT ILLNESS: This is a 55-year-old female, returned to the clinic status post bilateral SI joint injection completed on 07/04/2021 that afforded her to 80-85% relief and is ongoing. This was her second injection and continues to prove successful. Today, she has 4/10 pain in her lower lumbar area, which she describes as tight and achy. It is aggravated by prolonged standing, walking, housework, lifting, bending and physical activities. Resting in the recliner and sitting for short periods of time decreases her pain. She does use Biofreeze nightly but does not use heat. She uses ice instead, which she does feel relief from. Current medications include Percocet 5/325 daily p.r.n., Lyrica 50 mg t.i.d., Robaxin and trazodone. She denies any new radicular pain or vasomotor changes. Patient's REVIEW OF SYSTEMS / PAST MEDICAL HISTORY/ ALLERGIES and IMAGES have been reviewed and they are noted on the chart. PHYSICAL EXAM: VITAL SIGNS: Blood pressure 118/81, heart rate is 101. Temperature is 97.7. She is 5'2 , weighs 104.5 kg. GENERAL APPEARANCE: Pleasant, appropriate, in no acute distress. FOCUSED EXAM - BACK: Range of motion is within functional limits in lateral rotation and flexion/extension. Significant bilateral paravertebral spasming noted with trigger points identified; two on the left, one on the right. Reproduction of the patient's pain pattern to direct compression along these muscles. Bela's point is non-tender bilaterally with Gorge's and compression test negative. MUSCULOSKELETAL: Motor is intact, 4/5 bilaterally. Patient walks with a steady gait, does not use assistive device. NEUROLOGICALLY: Negative polyneuropathy. Intact patellar and Achilles tendon reflexes bilaterally. IMPRESSION: Bilateral sacroiliitis, lumbar paravertebral spasms, lumbar degenerative disc. PLAN: I discussed with the patient regarding bilateral lumbar trigger point injections in the office. Due to her insurance, a preauthorization is needed and patient will be brought to the clinic once that authorization is obtained. She was encouraged to do self-aqua therapy in the pool in addition to continuing using her Biofreeze and stretches. Getting a professional massage was also recommended. Patient does agree with plan of care and will be notified when she is to return to the clinic for her trigger point injections. Patient acknowledges and all questions answered. IF Signed and Approved by: CRYS PIERCE . 07/20/2021 10:33:00[facility]05-25-2022 NotePROCEDURE: XR FOOT RT MIN 3 VIEWS HISTORY: Pain in right foot COMPARISON: XR foot right 06/06/2021 FINDINGS: BONES:Mild bunion formation. Slight degenerative changes at the first metatarsophalangeal joint. Moderate degenerative changes at the first tarsal-metatarsal joint with mild degenerative changes of the remaining tarsal-metatarsal joints. Small calcaneal plantar spur. SOFT TISSUES:No visible soft tissue swelling. EFFUSION:None visible. OTHER: Negative. IMPRESSION: 1. Bunion formation and degenerative changes of the first tarsal-metatarsal and first metatarsophalangeal joints which may contribute to patient's symptoms. Electronically authenticated by: PATTIE SALTER Date: 2021-07-05 11:11[facility]05-10-2022 NoteCONSULTATION CONSULTATION DATE: 06/20/2021 CHIEF COMPLAINT: Low back pain, right hip pain. HISTORY OF PRESENT ILLNESS: This is a very pleasant, 55-year-old female who is known to the Pain [facility]. The patient recently had a #1 diagnostic sacroiliac joint injection, which afforded the patient 85% relief for a day and then gradually the pain has been coming back. The patient has been very active. Twisting, pushing, standing, lifting aggravate the pain, as does bending, climbing stairs, ADLs and activities. The patient has to sleep in the recliner for comfort. The patient also has orthopedic problem on her right foot and has recent x-rays ordered by Dr. Edwards that were reviewed in office today, where the patient did ask for some advice. The patient currently takes trazodone 50 mg h.s., Percocet 5/325 daily, Lyrica 50 mg t.i.d. and Robaxin 750 mg q.p.m. The patient's PAST MEDICAL HISTORY / SURGICAL HISTORY / REVIEW OF SYSTEMS are noted on the chart, along with the MEDICATION LIST / ALLERGIES and RADIOLOGICAL IMAGES, including the x-ray of the sacroiliac joints and her right foot. PHYSICAL EXAM: GENERAL APPEARANCE: Upon physical examination, this is a pleasant, cooperative female, who does not appear to be in any acute distress.. VITAL SIGNS: Stable at 135/86 with a heart rate of 102. The patient, at a height of 5'2 , weighs 106 kg. FOCUSED EVALUATION: The patient is able to sit comfortably and stand up. Compression test along the sacroiliac joint and Gaenslen's are positive, as are fluoroscopy. MUSCULOSKELETAL: Motor examination is intact in the lower extremities bilaterally. NEUROLOGICALLY: No radicular symptomatology is noted. PSYCHIATRICALLY: Affect is appropriate. IMPRESSION: Spinal axial low back pain, sacroiliitis, sacroiliac joint pain. PLAN: The patient will be scheduled for a second diagnostic medial branch block under fluoroscopy bilaterally. The patient understands and would like to proceed. CC: Jonathan Edwards M.D. [facility] Signed and Approved by: DR RICARDO HOLM . 06/27/2021 10:40:00[facility]* Diagnosis Routine cervical smear Screening for malignant neoplasm of the cervix documented in this encounter [facility] Work Phone: History general Narrative - Reported* Type Description Date Medical History GERD (gastroesophageal reflux di sease) Medical History Migraine headache Medical History Arthritis Medical History Edema of both legs Medical History Diabetes mellitus, type 2 Medical History Chronic back pain Surgical History ablasion Surgical History back surgery Surgical History hysterectomy Surgical History tubal ligation Hospitalization History see above [facility] Other Summary Purpose Family History No Family History Records FoundNo Family History Records Found Advance Directives No Advanced Directives Records FoundNo Advanced Directives Records Found Additional Source Comments Care Teams (unrecognized sec tion and content) Desktop Analyst Relationship Specialty Start Date End Date Sr Jonathan Edwards, [address] [place] [address] PCP - General Family Medicine 08/30/21 INFORMATION SOURCE (unrecogn ized section and content) DATE CREATED AUTHOR 09/10/[address] [facility] selam DATE CREATED AUTHOR AUTHOR'S ORGANIZ ATION 06/08/2022 [facility] REASON FOR VISIT (unrecogniz ed section and content) Right Wrist PaincholchicineL EFT HAND PAIN/SWELLING FOR RECORDS PERTAINING TO PATIENTS WHO ARE OR HAVE BEEN ENROLLED IN A CHEMICAL DEPENDENCY/SUBSTANCEABUSE PROGRAM, SOME INFORMATION MAY BE OMITTED. This clinical summary was aggregated from multiple sources. Caution should be exercised in using it in the provision of clinical care. This summary normalizes information from multiple sources, and as a consequence, information in this document may materially change the coding, format and clinical context of patient data. In addition, data may be omitted in some cases. CLINICAL DECISIONS SHOULD BE BASED ON THE PRIMARY CLINICAL RECORDS. [facility]. provides no warranty or guarantee of the accuracy or completeness of information in this document.
== END 2023-01-01 10:44 | disposition home or self-care (01) ==
LOC: SURGOUT 09:04
PROVIDERS: PCP Internal Medicine; Visit Provider Anesthesiology Pain Medicine
DX: M47.812 Spondylosis without myelopathy or radiculopathy, cervical region (principal); Z79.84 Long term (current) use of oral hypoglycemic drugs
CPT/HCPCS: 36415; 36416; 62321; 64490; 64491; 82948

== ENCOUNTER 2023-01-10 08:40 | Outpatient (OUT) | payer OTHER, MEDICARE, SELFPAY ==
--- NOTE | 2023-01-10 09:00 | PM.CN ---
Consult Note: HPI Data of Consult Patient: known to practice within the last 3 years Requesting Physician: Chela Tijerina NP Primary Care Provider: Shaikh Maricel MD Consult Narrative Reason for consult: f/u Narrative: Brian Weir a pleasant 57 year old female presents for evaluation and management of chronic neck pain, recently underwent bilateral C3/4 4/5 MBB with 90% pain relief and functional improvement immediately after and hours following. Patient has now underwent 1 right C3/4 4/5 MBB and 2 left c3/4 4/5 MBB. Patient rating pain 3/10 intermittent without radicular symptoms. Patient has been taking ibuprofen, tylenol. lyrica, percocet, baclofen, diclofenac with mild relief. cc:: CC: Chela Tijerina NP Review of Systems ROS Status of ROS 10 or more systems reviewed and unremarkable except as noted in history and below Musculoskeletal Reports: back pain PFSH PFSH Medical History Acid reflux ?K21.9 - Gastro-esophageal reflux disease without esophagitis (ICD-10) Back pain ?M54.9 - Dorsalgia, unspecified (ICD-10) Diabetes ?E11.9 - Type 2 diabetes mellitus without complications (ICD-10) Heartburn ?R12 - Heartburn (ICD-10) Neck pain ?M54.2 - Cervicalgia (ICD-10) Obesity ?E66.9 - Obesity, unspecified (ICD-10) Osteoarthritis ?M19.90 - Unspecified osteoarthritis, unspecified site (ICD-10) Smoker ?F17.200 - Nicotine dependence, unspecified, uncomplicated (ICD-10) TMJ (dislocation of temporomandibular joint) ?S03.00XA - Dislocation of jaw, unspecified side, initial encounter (ICD-10) Tubal ?O00.109 - Unspecified tubal without intrauterine (ICD-10) Upper back pain ?M54.9 - Dorsalgia, unspecified (ICD-10) Surgical History H/O: hysterectomy ?Z90.710 - Acquired absence of both cervix and uterus (ICD-10) S/P lumbar spine operation ?Z98.890 - Other specified postprocedural states (ICD-10) Meds Home Medications and Allergies Home Medications Medication Instructions Recorded Confirmed Type alendronate 70 mg tablet 70 mg PO QWEEK 07/20/22 01/01/23 History allopurinol 300 mg tablet 300 mg PO DAILY 07/20/22 01/01/23 History apple cider vinegar 600 mg capsule mg PO 07/20/22 History aspirin 81 mg tablet,delayed 81 mg PO DAILY 07/20/22 01/01/23 History release (Adult Aspirin Regimen) baclofen 10 mg tablet 10 mg PO TID 07/20/22 01/01/23 History cholecalciferol (vitamin D3) 25 1,000 unit PO DAILY 07/20/22 01/01/23 History mcg (1,000 unit) capsule diclofenac sodium 75 mg 75 mg PO BID 07/20/22 01/01/23 History tablet,delayed release divalproex 500 mg tablet,delayed 500 mg PO BID 07/20/22 01/01/23 History release (Depakote) glucosamine [id number]-[id number]-Krnacgbgo 1 tab PO DAILY 07/20/22 01/01/23 History krzysztof 1,500 mg-400 unit-100 mg tablet (Osteo Bi-Flex (5-Loxin)) glyburide 1.25 mg tablet 1.25 mg PO DAILY 07/20/22 01/01/23 History hydrochlorothiazide 25 mg tablet 25 mg PO DAILY 07/20/22 01/01/23 History lactobacillus combo no.13 1 1 cap PO DAILY 07/20/22 01/01/23 History billion cell capsule,delayed release (Probiotic Pearls Complete) multivitamin 1 tab PO DAILY 07/20/22 01/01/23 History oxycodone-acetaminophen 5 mg-325 1 tab PO DAILY 07/20/22 01/01/23 History mg tablet prasterone (dhea) 50 mg capsule 50 mg PO DAILY 07/20/22 01/01/23 History (DHEA) pregabalin 50 mg capsule (Lyrica) 50 mg PO TID 07/20/22 01/01/23 History trazodone 50 mg tablet 50 mg PO BEDTIME 07/20/22 01/01/23 History Allergies Allergy/AdvReac Type Severity Reaction Status Date / Time No Known Drug Allergies Allergy Verified 10/30/22 07:18 Exam Constitutional Documenting provider has reviewed patient's vital signs: yes Common normals: no apparent distress, oriented x3, healthy appearing, alert and well nourished General appearance: cooperative Nutritional appearance: obese HENMT Common normals: normocephalic, hearing grossly normal bilaterally and moist oral mucous membranes Head and scalp: normocephalic Eye Common normals: PERRL Pupil: PERRL Neck & C-Spine Common normals: full ROM General: normal visual inspection Cervical spine: pain with cervical ROM Other: trigger point to right occipital area tenderness and pain at bilateral C3/4 4/5 facets predominately axial neck pain without radiculopathy Chest Common normals: inspection of chest normal Respiratory Common normals: normal respiratory effort, no retractions and no use of accessory muscles Back & Pelvis Lumbar spine/lower back: straight leg raise negative bilaterally Extremity Common normals: normal to inspection and full ROM Extremity image (back): 1. muscle spasms and pain Neuro Common normals: oriented x3, CN's II-XII intact bilaterally, moves all extremities, no focal motor deficits, no sensory deficits noted and deep tendon reflexes 2+ bilaterally Sensorium/orientation: alert Gait (neuro): antalgic Motor exam: strength 5/5 throughout and no movement abnormalities noted Psych Common normals: mental status grossly normal, thought process normal, cooperative, affect normal, speech normal and activity/motor behavior normal Speech: normal speech Thought process: normal thought process Results Additional Findings Additional findings: I have checked an OARRS report on this patient today and there are no aberrancies noted in the prescribing history.?? A drug screen was completed and reviewed within the last year, and if there has not been a drug screen completed we ordered one today to monitor higher risk, state monitored pain medication use. As part of providing excellent, safe, comprehensive care, the following was completed at our patient's visit: 1. A medication reconciliation and review to ensure accurate knowledge of current/active medications, including asking our patients to inform us about any oqoj-fzl-xikdnol medications or herbal remedies/nutritional supplements/alternative remedies. 2. A review to specifically ensure our patients have had annual screening for: elevated body mass index (BMI), tobacco use, screening for depression, and screening for unhealthy alcohol use. When screening is concerning, patients are provided with education and the specific recommendation to discuss the concerning health issue and treatment options with their primary care provider. Assessment and Plan Assessment and Plan (1) Chronic prescription opiate use: Assessment and Plan: feel these medications are improving the patient's quality of life and allow them to tolerate activities of daily living as well as participate in recreational activity.? The patient does not report intolerable side effects. The patient is NOT opioid naive and non-pharmacologic and non-opioid treatment has failed to significantly relieve the patient's pain and improve functionality. The patient has a diagnosis that is related to a somatic or visceral pain etiology. ? ?? I reviewed with the patient the potential risks and side effects with the use of? opioid medications including but not limited to respiratory depression,? sedation, and even . I verified the patient has access to naloxone should? these effects occur. I advised the patient to avoid the use of any other? sedation substances including alcohol, THC, and benzodiazepines while? taking opioid medications due to the risk of compounding side effects and? detrimental outcomes. 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 drug screen, and opioid start talking forms. The patient was advised to let? their family know they had Naloxone in case they would need to administer? the medication.? ?? A drug screen was completed within the last year, and no aberrancies were noted regarding their use of controlled substances. The patient understands they are subject to the terms and conditions of the pain contract that they have signed. ? ?? I have checked an OARRS report on this patient today and there are no aberrancies noted in the prescribing history.? (2) Muscle spasm: (3) Cervical spondylosis: (4) Lumbar spondylosis: (5) Obesity: Assessment and Plan: The patient was counseled that proper dietary changes and consistent participation in a home exercise plan can lead to weight loss. Weight loss can help to improve functionality in patients with chronic pain.? Plan patient does not have reliable transportation for at least 1 month, would like to wait on additional procedures. repeat Right C3/4 4/5 MBB #2 under fluoroscopy and PO valium 10mg prior to procedure left C3/4 4/5 thermal RFA under fluoroscopy with IV sedation increase baclofen to 5-10mg BID PRN Muscle spasms heat and ice to right buttock and thigh, pt had a near fall last week and has noticed pain and muscle tightness to this area continue other medications f/u 3 months, sooner for procedures if patient calls
--- NOTE | 2023-01-10 12:25 | XR_ITS ---
[facility] [id number] Patient Name: KARINA DE OLIVEIRA MRN: [id number] date: 1965 Sex: F Assigned Patient Location: PM Current Patient Location: Accession/Order Number: [id number] Exam Date: 01/10/2023 12:18 Report Date: 01/12/2023 05:22 At the request of: JAMES BLANCO Procedure: XR hand LT min 3V PROCEDURE: XR hand LT min 3V HISTORY: left had pain M79.642 ; left thumb pain for one month; no known injury COMPARISON: None. FINDINGS: BONES:Tiny, 0.5 mm ossifications separate from the lateral proximal corner of the first digit distal phalanx suspected represents sequela of remote injury. Possible small erosion along the anterior lateral corner of the first distal phalanx at the interphalangeal joint. Minimal degenerative changes of the second digit distal interphalangeal joint. SOFT TISSUES:No visible soft tissue swelling. EFFUSION:None visible. OTHER: Negative. XR/XR hand LT min 3V IMPRESSION: 1. No appreciable acute bone abnormality. 2. Suspect mild degenerative changes of the first interphalangeal joint and second distal interphalangeal joint. 3. Remote versus acute tiny cortical avulsion fracture at first digit interphalangeal joint. Electronically authenticated by: PATTIE SALTER Date: 01/12/2023 05:22
== END 2023-01-10 08:41 | disposition home or self-care (01) ==
LOC: PM 08:42
PROVIDERS: PCP Internal Medicine; Visit Provider Nurse Practitioner
DX: M79.642 Pain in left hand (principal); M47.812 Spondylosis without myelopathy or radiculopathy, cervical region; M47.816 Spondylosis without myelopathy or radiculopathy, lumbar region; E66.9 Obesity, unspecified; M62.838 Other muscle spasm; Z79.891 Long term (current) use of opiate analgesic
CPT/HCPCS: 73130; G0463

== ENCOUNTER 2023-03-20 09:05 | Outpatient (OUT) | payer OTHER, MEDICARE, SELFPAY ==
--- NOTE | 2023-03-20 09:09 | XR_ITS ---
The [address] [address] Patient Name: KARINA DE OLIVEIRA MRN: [id number] date: 1965 Sex: F [facility] Current Patient Location: LAB Accession/Order Number: [id number] Exam Date: 03/20/2023 09:28 Report Date: 03/20/2023 09:48 At the request of: RADHA TRIVEDI Procedure: XR DEXA axial skeleton EXAMINATION: XR DEXA axial skeleton, 03/20/2023 9:28 AM EST HISTORY: menopause Z78.0 COMPARISON: 2007 TECHNIQUE: Dual-energy X-ray absorptiometry (DEXA) bone density study performed for the axial skeleton. HISTORY: menopause Z78.0 FINDINGS: Bone mineral density AP spine L2-L4 measures 1.863 g/sq cm. T score 5.5. This elevated bone mineral density is likely related to degenerative spondylosis Lowest bone mineral density is in the left femoral trochanter measuring 1.075 g/sq cm. T score 1.9. WHO classification: Normal XR/XR DEXA axial skeleton IMPRESSION: Normal bone mineral density. Low fracture risk Electronically authenticated by: RYAN GOLDMAN Date: 03/20/2023 09:48
--- NOTE | 2023-03-20 09:09 | MM_ITS ---
Patient Name: KARINA DE OLIVEIRA MR#: [id number] : 1965 Exam Date: 03/20/2023 Ordering Doctor: DR RADHA TRIVEDI [facility] RADIOLOGY REPORT PROCEDURE: MM TOMOSYNTHESIS SCREENING BI COMPARISON: MG MAMM SCREEN 3D SALINA CAD, 01/31/2021. MG MAMM SCREEN SALINA W CAD, 02/02/2020. INDICATIONS: screening Calculator Name NCI Breast Cancer Risk Assessment Tool 5 Year Breast Cancer Risk 1.20% Lifetime Breast Cancer Risk 6.70% Personal Breast Cancer No Personal Ovarian Cancer No Treatments None Family Cancers Grandfather-maternal with prostate cancer at age 70; Mother with skin cancer at age 71. LOCATION: [facility] BREAST COMPOSITION: Scattered areas fibroglandular density. FINDINGS: DIAGNOSTIC CATEGORY 2--BENIGN FINDING. NO CHANGE FROM COMPARISON. Scattered benign-appearing calcifications are present. Scattered benign-appearing lymph nodes are present. RIGHT BREAST: No significant suspicious finding. LEFT BREAST: No significant suspicious finding. RECOMMENDATIONS: ROUTINE MAMMOGRAM AND CLINICAL EVALUATION IN 12 MONTHS. PLEASE NOTE: A NORMAL MAMMOGRAM DOES NOT EXCLUDE THE POSSIBILITY OF BREAST CANCER. A CLINICALLY SUSPICIOUS PALPABLE LUMP SHOULD BE BIOPSIED. Dictated by: Marlon Wang MD on 03/20/2023 at 12:56 Approved by: Marlon Wang MD on 03/20/2023 at 12:57
--- OUTSIDE RECORDS SUMMARY | 2023-03-20 09:11 | XMS_ITS | CCD ---
Author Name Unknown Address [address] [place] [address] Organization [facility] Care Team Providers Care Utility Pipe Layer Name Role Phone House DO, Sr Jonathan Klein Primary Care Provider NIKKIE BARCLAY Referring Unavailabl e HOUSE, SR JONATHAN Klein Primary Care Unavailable Ana [...] RICARDO Belcher Attending Unavailable PIERCE ., CRYS Trimble Unavailable HOUSE, DR BASURTO Primary Care Unavailable HALKER .JOSE Unavailable LAKSHMIPATHY ., NARENDRANATH Admitting Nellie vailable [...] DR RICARDO Belcher Attending Unavailable HOUSE, DR BASUROT Primary Care Unavailable DR PATTIE SALTER Consulting Unavailable PIERCE ., CRYS Admitting Unavailable PIERCE ., CRYS Attending Unavailable PIERCE ., CRYS Consulting Unavailable HOUSE, DR BASURTO Admitting Unavailable HOUSE, DR BASURTO Primary Care Unavailable HOUSE, DR BASURTO Attending Unavailable HOUSE, DR BASURTO Consulting Unavailable SUSSY JONES Admitting Unavailable SUSSY JONES Attending Unavailable HOUSE, DR BASURTO Primary Care Unavailable GAETANO, DR PATTIE Nieves Consulting Unavailable RICHLAND CENTER, SUSSY Dos Santos Consulting Unavailable LIVONIA, DR BASURTO Attending Unavailable LIVONIA, DR BASURTO Primary Care Unavailable LIVONIA, DR BASURTO Admitting Unavailable LIVONIA, DR BASURTO Consulting Unavailable LIVONIA, DR BASURTO Primary Care Unavailable GAETANO, DR PATTIE Nieves Consulting Unavailable LAKSHMIPATHY ., NARENDSABAS Admitting Nellie vailable LAKSHMIPATHY ., NARCAMRYNATH Attending Nellie vailable LAKSHMIPATHY ., BILLY Consulting Nellie vailable HOUSE, DR BASURTO Admitting Unavailable LIVONIA, DR BASURTO Attending Unavailable LIVONIA, DR BASURTO Primary Care Unavailable [place], DR RYAN Guzman Consulting Unavailable LIVONIA, DR JONATHAN Trimble Unavailable ALTA ., DR RICARDO Belcher Admitting Unavailable HOUSE, DR BASURTO Primary Care Unavailable HOLM ., DR RICARDO Belcher Attending Unavailable HOLM ., DR RICARDO Belcher Consulting Unavailable HOLM ., DR RICARDO Belcher Admitting Unavailable HOUSE, DR BASURTO Primary Care Unavailable HOLM ., DR RICARDO Belcher Attending Unavailable HOLM ., DR RICARDO Belcher Consulting Unavailable PIERCE ., CRYS Consulting Unavailable PIERCE ., CRYS Trimble Unavailable LIVONIA, DR BASURTO Primary Care Unavailable HOLM ., DR RICARDO Belcher Admitting Unavailable HOLM ., DR RICARDO Belcher Attending Unavailable LAKSHMIPATHY ., BILLY Consulting Nellie vailable LIVONIA, DR BASURTO Primary Care Unavailable HOLM ., DR RICARDO Belcher Admitting Unavailable HOLM ., DR RICARDO Belcher Attending Unavailable PIERCE ., CRYS Consulting Unavailable Elle Hendricks Unavailable ALICIA GARCIA Attending Unavailable SHAIKH GRAVES Attending Unavailable Medications Current Medications Medication Drug Class(es) Dates Sig (Normalized) Sig (Original) acetaminophen 325 mg / oxyCODONE hydrochloride 10 mg oral tablet (5 sources) Opioid Agonist take 1 tablet by alonso th every six hours Percocet 10-325 MG 1 tablet as needed Orally every 6 hrs Active take 1 tablet by alonso th once as needed oxyCODONE-acetaminophen (PERCOCET) 10-32 5 MG per tablet Percocet 10 mg-325 mg tablet Take 1 tablet as needed by oral route. 0 Active alendronic acid 70 mg oral tablet (5 sources) Bisphosphonate Start: 08-17-2021 take 1 tablet by mouth once alendronate (FOSAMAX) 70 MG tablet TAKE 1 TABLET BY MOUTH EVERY SATURDAY 0 08/17/2021 Active allopurinol 300 mg oral tablet (5 sources) Xanthine Oxidase Inhibitor take 1 tablet by mouth every twenty-four hours Allopurinol 300 MG 1 tablet Orally Once a day Active ALLOPURINOL PO T karolyn by mouth 0 Active ascorbic acid 500 mg oral ca psule (3 sources) Vitamin C Vitamin C 500 MG Orally Active take 1 tablet by mouth once sariah y ascorbic acid (VITAMIN C) 500 MG tablet Vitamin C 500 mg tablet Take 1 tablet every day by oral route. 0 Active Aspir-81 81 MG (4 sources) take 1 tablet by mouth once [...] 0 Active colchicine 0.6 mg oral tablet (4 sources) Start: 3 take 1 tablet by mouth every twenty-four hours Colchicine 0.6 MG 1 tablet Orally once daily for 30 days Apr, Active diclofenac sodium 75 mg delayed release oral tablet (5 sources) Nonsteroidal Anti-inflammatory Drug Start: 2 take 1 tablet by mouth twice daily diclofenac (VOLTAREN) 75 MG EC tablet TAKE 1 TABLET BY MOUTH TWICE DAILY 0 08/07/2021 Active Voltaren Active eletriptan 40 mg oral tablet (5 sources) Serotonin-1b and Serotonin-1d Receptor Agonist take [...] Active metFORMIN hydrochloride 500 mg oral tablet (5 sources) Biguanide Start: 08-07-2021 metFORMIN (GLUCOPHAGE) 500 [...] As Directed for 6 days Active Multivitamins (4 sources) Multivitamins Orally Active Osteo Bi-Flex Adv Double St (4 sources) Osteo Bi-Flex Ad v Double St Orally Active Ozempic (0.25 or 0.5 MG/DOSE) (2 sources) Ozempic (0.25 or 0.5 MG/DOSE) Active pregabalin 50 mg oral capsule (5 sources) take 1 capsule by mouth every eight hours Lyrica 50 MG 1 capsule Orally Three times a day Active take 1 capsule by mouth twice da jose martin pregabalin (LYRICA) 50 MG capsule Lyrica 50 mg capsule Take 1 capsule twice a day by oral route. 0 Active Probiotic (4 sources) Probiotic Active raNITIdine 150 mg oral tablet (4 sources) Histamine-2 Receptor Antagonist take 1 tablet by mouth twice daily Ranitidine HCl 150 MG 1 Tablet Orally bid Active Robaxin-750 750 MG (4 sources) take 1 tablet by mouth every four hours Robaxin-750 750 MG 1 tablet Orally every 4 hrs Active rosuvastatin calcium 20 mg oral tablet (1 source) HMG-CoA Reductase Inhibitor take 1 tablet by mouth every twenty-four hours Crestor 20 MG 1 tablet Orally Once a day Active traZODone hydrochloride 50 mg oral tablet (1 source) Serotonin Reuptake Inhibitor Start: take 1 tablet by mouth once daily at bedtime traZODone (DESYREL) 50 MG tablet TAKE 1 TABLET BY MOUTH EVERY NIGHT AT BEDTIME 0 08/17/2021 Active divalproex sodium 500 mg delayed release oral tablet (5 sources) Mood Stabilizer, Anti-epileptic Agent take 1 tablet by mouth every twelve hours Depakote 500 mg 1 tablet Orally twice a day Active Vitamin C 500 MG (2 sources) Vitamin C 500 MG Orally Active Completed/Discontinued Medications Medication Drug Class(es) Dates Sig (Normalized) Sig (Original) triamcinolone acetonide 40 mg/ml injectable suspension (1 source) Corticosteroid Start: 01-23-2023 Kenalog-40 Jan, 30 mg Problems Active Problems Problem Classification Problem Date Documented Date Episodic/Chronic Diabetes mellitus without complication (5 sources) Type 2 diabetes mellitus without complications; Translations: [TYPE 2 DM WITHOUT COMPLICATIONS] Onset: 07-05-2021 Chronic Essential hypertension (1 source) Essential (primary) hypertension; Translations: [ESSENTIAL PRIMARY HYPERTENSION] Onset: 04-16-2022 Chronic Gout and other crystal arthropathies (6 sources) Gout; Translations: [Gout, unspecified] Chronic Osteoarthritis [...] Onset: 06-08-2022 Chronic Other non-traumatic joint disorders (3 sources) Pain in right wrist Episodic Other nutritional; endocrine; and metabolic disorders (4 sources) Hypercalcemia; Translations: [Hypercalcemia] Chronic Other screening [...] Results Test Name Value Interpretation Reference Range Facility XR LSPINE 2_3 VIEWSon 2022 XR LSPINE 2_3 VIEWS EXAMINATION: XR LSPINE 2_3 VIEWS HISTORY: Lumbar spondylosis ; chronic [...] PATTIE SALTER Date: 2022-06-07 11:15 Normal [facility] CBC AUTO DIFFon 04-12-2022 BASO # 0.1 103/ul Normal 0.0-0.1 [facility] Comment on above: Performed By: #### C BC ####[facility] [address] [place] [id number]. Ricky Valenzuela Basophils/100 WBC (Bld) 0.5 % Normal 0.2-2.0 [facility] Comment on above: Performed By: #### C BC ####[facility] [address] [place] [id number]. Ricky Valenzuela EO # 0.3 103/ul Normal 0.0-0.7 [facility] Comment on above: Performed By: #### C BC ####[facility] [address] [place], [place] [id number]. Ricky Valenzuela Eosinophils/100 WBC (Bld) 3.0 % Normal 0.9-7.0 [facility] Comment on above: Performed By: #### C BC ####[facility] [address] [place] [address]Dr. Ricky Valenzuela Erythrocyte distribution width (RBC) [Ratio] 14.8 % Normal 11.0-15.0 [facility] Comment on above: Performed By: #### C BC ####[facility] [address] [place] [id number]. Ricky Valenzuela Hematocrit (Bld) [Volume fraction] 40.6 % Normal 36.0-48.0 [facility] Comment on above: Performed By: #### C BC ####[facility] [address] [place] [id number]. Ricky Valenzuela Hemoglobin (Bld) [Mass/Vol] 13.5 g/dL Normal 12.0-16.0 [facility] Comment on above: Performed By: #### C BC ####[facility] [address] [place] [id number]. Ricky Valenzuela IG # 0.16 10e3/ul Critically high 0.00-0.03 [facility] Comment on above: Performed By: #### C BC ####[facility] [address] [place] [id number]. Ricky Valenzuela IG % 1.4 % Critically high 0.0-0.5 [facility] Comment on above: Performed By: #### C BC ####[facility] [address] [place] [id number]. Ricky Valenzuela LYMPH # 3.4 103/ul Normal 1.2-3.8 [facility] Comment on above: Performed By: #### C BC ####[facility] [address] [place], [place] [address]Lk. Ricky Nicolas Lymphocytes/100 WBC (Bld) 30.4 % Normal 20.5-60.0 [facility] Comment on above: Performed By: #### C BC ####[facility] [address] [place] [id number]. Ricky Nicolas MANUAL DIFF REQ NO Normal [facility] Comment on above: Performed By: #### C BC ####[facility] [address] [place] [id number]. Ricky Nicolas MCH (RBC) [Entitic mass] 31.8 pg Normal 26.7-34.0 [facility] Comment on above: Performed By: #### C BC ####[facility] [address] [place] [id number]. Ricky Valenzuela MCHC (RBC) [Mass/Vol] 33.3 g/dL Normal 29.9-35.2 [facility] Comment on above: Performed By: #### C BC ####[facility] [address] [place] [id number]. Ricky Nicolas MCV (RBC) [Entitic vol] 95.5 fL Normal 81.0-99.0 [facility] Comment on above: Performed By: #### C BC ####[facility] [address] [place] [id number]. Ricky Valenzuela MONO # 0.9 103/ul Critically high 0.3-0.8 [facility] Comment on above: Performed By: #### C BC ####[facility] [address] [place] [id number]. Ricky Nicolas Monocytes/100 WBC (Bld) 7.7 % Normal 1.7-12.0 [facility] Comment on above: Performed By: #### C BC ####[facility] [address] [place] [id number]. Ricky Valenzuela NEUT # 6.3 103/ul Normal 1.4-6.5 [facility] Comment on above: Performed By: #### C BC ####[facility] [address] [place] [id number]. Ricky Valenzuela Neutrophils/100 WBC (Bld) 57.0 % Normal 43.0-75.0 [facility] Comment on above: Performed By: #### C BC ####[facility] [address] [place] [id number]. Ricky Valenzuela Platelet mean volume (Bld) [Entitic vol] 9.8 fL Normal 9.5-13.5 [facility] Comment on above: Performed By: #### C BC ####[facility] [address] [place] [address]Dr. Ricky Valenzuela PLT 246 103/ul Normal 150-450 [facility] Comment on above: Performed By: #### C BC ####[facility] [address] [place] [id number]. Ricky Valenzulea RBC 4.25 106/ul Normal 4.20-5.40 [facility] Comment on above: Performed By: #### C BC ####[facility] [address] [place] [address]Dr. Ricky Valenzuela WBC 11.1 103/ul Critically high 4.0-11.0 [facility] Comment on above: Performed By: #### C BC ####[facility] [address] [place], [place] [id number]. Ricky Valenzuela GLYCOHEMOGLOBIN A1Con 2022 ADA RECOMMENDATION SEE BELOW Normal [facility] Comment on above: Result Comment: ADA RECOMMENDED LIMIT 4.0 - 6.0 ADA THERAPEUTIC TARGET < 7.0 ACTION SUGGESTED > 7.0 Performed By: #### A 1C ####[facility] [address] [place], [place] [address]Dr. Ricky Valenzuela Glucose [Mass/Vol] 160 mg/dL Normal [facility] Comment on above: Performed By: #### A 1C ####[facility] [address] [place] [id number]. Ricky Valenzuela HbA1c (Bld) [Mass fraction] 7.2 % Critically high 4.5-6.2 [facility] Comment on above: Performed By: #### A 1C ####[facility] [address] [place] [id number]. Ricky Valenzuela MICROALBUMIN, RAND URon 03- mALB <1.3 Normal <=30.0 [facility] Comment on above: Performed By: #### M ALBR #### [facility] [address] [place] [address] [address] Ricky Valenzuela PROF 14(COMP METB)on 023 Albumin [Mass/Vol] 3.3 g/dL Critically low 3.4-5.0 [facility] Comment on above: Performed By: #### C MP #### [facility] [address] [address] [address] Ricky Valenzuela Albumin/Globulin [Mass ratio] 0.9 {ratio} Normal [facility] Comment on above: Performed By: #### C MP #### [facility] [address] [address] [address] Ricky Valenzuela ALP [Catalytic activity/Vol] 90 U/L Normal 46-116 [facility] Comment on above: Performed By: #### C MP #### [facility] [address] [address] [address] Ricky Valenzuela ALT [Catalytic activity/Vol] 42 U/L Normal 14-59 [facility] Comment on above: Performed By: #### C MP #### [facility] [address] [address] [address] Ricky Valenzuela Anion gap [Moles/Vol] 10.1 mmol/L Normal [facility] Comment on above: Performed By: #### C MP #### [facility] [address] [address] [address] Ricky Valenzuela AST [Catalytic activity/Vol] 21 U/L Normal 15-37 [facility] Comment on above: Performed By: #### C MP #### [facility] [address] [address] [address] Ricky Valenzuela Bilirubin [Mass/Vol] 0.3 mg/dL Normal 0.2-1.0 [facility] Comment on above: Performed By: #### C MP #### [facility] [address] [address] [address] Ricky Valenzuela Calcium [Mass/Vol] 9.8 mg/dL Normal 8.5-10.1 [facility] Comment on above: Performed By: #### C MP #### [facility] [address] [address] [address] Ricky Valenzuela Chloride [Moles/Vol] 99 mmol/L Normal 98-107 [facility] Comment on above: Performed By: #### C MP #### [facility] [address] [address] [address] Ricky Valenzuela CO2 [Moles/Vol] 33.7 mmol/L Critically high 21.0-32.0 [facility] Comment on above: Performed By: #### C MP #### [facility] [address] [address] [address] Ricky Valenzuela Creatinine [Mass/Vol] 0.94 mg/dL Normal 0.55-1.02 [facility] Comment on above: Performed By: #### C MP #### [facility] [address] [address] [address] Ricky Valenzuela EGFR-AF ITALIAN >60 Normal >=60 [facility] Comment on above: Performed By: #### C MP #### [facility] [address] [address] [address] Ricky Valenzuela EGFR-NON AF ITALIAN >60 Normal >=60 [facility] Comment on above: Performed By: #### C MP #### [facility] [address] [address] [address] Ricky Valenzuela Globulin (S) [Mass/Vol] 3.8 g/dL Normal [facility] Comment on above: Performed By: #### C MP #### [facility] [address] [address] [address] Ricky Valenzuela Glucose [Mass/Vol] 168 mg/dL Critically high 74-106 [facility] Comment on above: Performed By: #### C MP #### [facility] [address] [address] [address] Ricky Valenzuela Potassium [Moles/Vol] 4.8 mmol/L Normal 3.5-5.1 [facility] Comment on above: Performed By: #### C MP #### [facility] [address] [address] [address] Ricky Valenzuela Protein [Mass/Vol] 7.1 g/dL Normal 6.4-8.2 [facility] Comment on above: Performed By: #### C MP #### [facility] [address] [address] [address] Ricky Valenzuela Sodium [Moles/Vol] 138 mmol/L Normal 136-145 [facility] Comment on above: Performed By: #### C MP #### [facility] [address] [address] [address] Ricky Valenzuela Urea nitrogen [Mass/Vol] 22.0 mg/dL Critically high 7.0-18.0 [facility] Comment on above: Performed By: #### C MP #### [facility] [address] [address] [address] Ricky Valenzuela Urea nitrogen/Creatinine [Mass ratio] 23.4 mg/mg Normal [facility] Comment on above: Performed By: #### C MP #### [facility] [address] [address] [address] Ricky Valenzuela Cytologyon 08-30-2021 Cytology (NOTE) INTERPRETATION Vaginal material, (ThinPrep vial, Imaging-assisted review): Specimen Adequacy: Satisfactory for evaluation. Descriptive Diagnosis: Negative for intraepithelial lesion or malignancy. Charter Boat Operator: CLARK Delacruz(ASCP) Electronically Signed Out zackary/09/07/2021 Source: A: Vaginal material, (ThinPrep vial, Imaging-assisted review) Clinical History Hysterectomy Surgery: Salpingostomy; Ovary removal Z12.4 Encounter for screening for malignant neoplasm of cervix GYNECOLOGIC CYTOLOGY REPORT Patient Name: KARINA DE OLIVEIRA [facility] Rec: [id number] Path Number: [id number] [facility] ANATOMIC PATHOLOGY [address] [place] [id number] Normal [facility] Comment on above: Performed By: #### P PPVP #### [address] [address] Diesel Technician: Luca Cummins MD CBC AUTO DIFFon 08-09-2021 BASO # 0.1 103/ul Normal 0.0-0.1 [facility] Comment on above: Performed By: #### C BC #### [facility] [address] [address] [address] Ricky Valenzuela Basophils/100 WBC (Bld) 0.8 % Normal 0.2-2.0 [facility] Comment on above: Performed By: #### C BC #### [facility] [address] [address] [address] Ricky Valenzuela EO # 0.2 103/ul Normal 0.0-0.7 [facility] Comment on above: Performed By: #### C BC #### [facility] [address] [address] [address] Ricky Valenzuela Eosinophils/100 WBC (Bld) 2.1 % Normal 0.9-7.0 [facility] Comment on above: Performed By: #### C BC #### [facility] [address] [address] [address] Ricky Valenzuela Erythrocyte distribution width (RBC) [Ratio] 15.2 % Critically high 11.0-15.0 [facility] Comment on above: Performed By: #### C BC #### [facility] [address] [address] [address] Ricky Valenzuela Hematocrit (Bld) [Volume fraction] 41.5 % Normal 36.0-48.0 [facility] Comment on above: Performed By: #### C BC #### [facility] [address] [address] [address] Ricky Valenzuela Hemoglobin (Bld) [Mass/Vol] 13.5 g/dL Normal 12.0-16.0 [facility] Comment on above: Performed By: #### C BC #### [facility] [address] [address] [address] Ricky Valenzuela IG # 0.42 10e3/ul Critically high 0.00-0.03 [facility] Comment on above: Performed By: #### C BC #### [facility] [address] [place] [address] Dr. Ricky Valenzuela IG % 3.8 % Critically high 0.0-0.5 [facility] Comment on above: Performed By: #### C BC #### [facility] [address] [place] [address] Dr. Ricyk Valenzuela LYMPH # 3.3 103/ul Normal 1.2-3.8 [facility] Comment on above: Performed By: #### C BC #### [facility] [address] [place] [address] Dr. Ricky Valenzuela Lymphocytes/100 WBC (Bld) 29.1 % Normal 20.5-60.0 [facility] Comment on above: Performed By: #### C BC #### [facility] [address] [place] [address] Dr. Ricky Valenzuela MANUAL DIFF REQ NO Normal [facility] Comment on above: Performed By: #### C BC #### [facility] [address] [place] [address] Dr. Ricky Valenzuela MCH (RBC) [Entitic mass] 32.4 pg Normal 26.7-34.0 [facility] Comment on above: Performed By: #### C BC #### [facility] [address] [place] [address] Dr. Ricky Valenzuela MCHC (RBC) [Mass/Vol] 32.5 g/dL Normal 29.9-35.2 [facility] Comment on above: Performed By: #### C BC #### [facility] [address] [place] [address] Dr. Ricky Valenzuela MCV (RBC) [Entitic vol] 99.5 fL Critically high 81.0-99.0 [facility] Comment on above: Performed By: #### C BC #### [facility] [address] [place] [address] Dr. Ricky Valenzuela MONO # 0.8 103/ul Normal 0.3-0.8 [facility] Comment on above: Performed By: #### C BC #### [facility] [address] [place] [address] Dr. Ricky Valenzuela Monocytes/100 WBC (Bld) 7.5 % Normal 1.7-12.0 [facility] Comment on above: Performed By: #### C BC #### [facility] [address] [place] [address] Dr. Ricky Valenzuela NEUT # 6.3 103/ul Normal 1.4-6.5 [facility] Comment on above: Performed By: #### C BC #### [facility] [address] [place] [address] Dr. Ricky Valenzuela Neutrophils/100 WBC (Bld) 56.7 % Normal 43.0-75.0 [facility] Comment on above: Performed By: #### C BC #### [facility] [address] [place] [address] Dr. Ricky Valenzuela Platelet mean volume (Bld) [Entitic vol] 9.8 fL Normal 9.5-13.5 [facility] Comment on above: Performed By: #### C BC #### [facility] [address] [place] [address] Dr. Ricky Valenzuela PLT 265 103/ul Normal 150-450 [facility] Comment on above: Performed By: #### C BC #### [facility] [address] [place] [address] Dr. Ricky Valenzuela RBC 4.17 106/ul Critically low 4.20-5.40 [facility] Comment on above: Performed By: #### C BC #### [facility] [address] [place] [address] Dr. Ricky Valenzuela WBC 11.2 103/ul Critically high 4.0-11.0 [facility] Comment on above: Performed By: #### C BC #### [facility] [address] [id number] Ricky Valenzuela GLYCOHEMOGLOBIN A1Con 2021 ADA RECOMMENDATION SEE BELOW Normal [facility] Comment on above: Result Comment: ADA RECOMMENDED LIMIT 4.0 - 6.0 ADA THERAPEUTIC TARGET < 7.0 ACTION SUGGESTED > 7.0 Performed By: #### A 1C ####[facility] [address] [place], [place] [address]FpDr. Ricky Valenzuela Glucose [Mass/Vol] 183 mg/dL Normal [facility] Comment on above: Performed By: #### A 1C ####[facility] [address] [place], [place] [address]AtDr. Ricky Valenzuela HbA1c (Bld) [Mass fraction] 8.0 % Critically high 4.5-6.2 [facility] Comment on above: Performed By: #### A 1C ####[facility] [address] [place], [place] [address]QcDr. Ricky Valenzuela LIPID PROFILEon 08-09-2021 CHOL-HDL RATIO NORM SEE BELOW Normal [facility] Comment on above: Result Comment: 3.3 - 4.4 LOW RISK 4.4 - 7.1 AVERAGE RISK 7.1 - 11.0 MODERATE RISK >11.0 HIGH RISK Performed By: #### C MP, LIPID #### [facility] [id number] Ricky Valenzuela Cholesterol [Mass/Vol] 239 mg/dL Critically high <=200 [facility] Comment on above: Performed By: #### C MP, LIPID #### [facility] [id number] Ricky Valenzuela Cholesterol in HDL [Mass/Vol] 36 mg/dL Critically low 40-60 [facility] Comment on above: Performed By: #### C MP, LIPID #### [facility] [id number] Ricky Valenzuela Cholesterol in LDL [Mass/Vol] 164.2 mg/dL Normal [facility] Comment on above: Performed By: #### C MP, LIPID #### [facility] [address] [address] [address] Ricky Valenzuela Cholesterol.total/Cho lesterol in HDL [Mass ratio] 6.6 {ratio} Normal [facility] Comment on above: Performed By: #### C MP, LIPID #### [facility] [address] [address] [address] Ricky Valenzuela HDL NORMAL > or = 60 mg/dl - LO W CARDIOVASCULAR RISK <40 mg/dl - HIGH CARDIOVASCULAR RISK Normal [facility] Comment on above: Performed By: #### C MP, LIPID #### [facility] [address] [address] [address] Ricky Valenzuela LDL CALC NORMAL SEE BELOW Normal [facility] Comment on above: Result Comment: <100 mg/dl OPTIMAL 100 - 129 mg/dl NEAR OR ABOVE OPTIMAL 130 - 159 mg/dl BORDERLINE HIGH 160 - 189 mg/dl HIGH >190 mg/dl VERY HIGH Performed By: #### C MP, LIPID #### [facility] [address] [address] [address] Ricky Valenzuela Triglyceride [Mass/Vol] 194 mg/dL Critically high <=150 [facility] Comment on above: Performed By: #### C MP, LIPID #### [facility] [address] [address] [address] Ricky Valenzuela VLDL CALC 38.8 mg/dL Normal [facility] Comment on above: Performed By: #### C MP, LIPID #### [facility] [address] [address] [address] Ricky Valenzuela MICROALBUMIN, RAND URon 07-13 mALB 13.1 mg/L Normal <=30.0 [facility] Comment on above: Performed By: #### M ALBR ####[facility] [address] [address]Dr. Ricky Valenzuela PROF 14(COMP METB)on 022 Albumin [Mass/Vol] 3.3 g/dL Critically low 3.4-5.0 [facility] Comment on above: Performed By: #### C MP, LIPID #### [facility] [address] [address] [address] Ricky Valenzuela Albumin/Globulin [Mass ratio] 0.8 {ratio} Normal [facility] Comment on above: Performed By: #### C MP, LIPID #### [facility] [address] [address] [address] Ricky Valenzuela ALP [Catalytic activity/Vol] 93 U/L Normal 46-116 [facility] Comment on above: Performed By: #### C MP, LIPID #### [facility] [address] [address] [address] Ricky Valenzuela ALT [Catalytic activity/Vol] 37 U/L Normal 14-59 [facility] Comment on above: Performed By: #### C MP, LIPID #### [facility] [address] [place] [address] Dr. Ricky Valenzuela Anion gap [Moles/Vol] 10.9 mmol/L Normal [facility] Comment on above: Performed By: #### C MP, LIPID #### [facility] [address] [address] [address] Ricky Valenzuela AST [Catalytic activity/Vol] 10 U/L Critically low 15-37 [facility] Comment on above: Performed By: #### C MP, LIPID #### [facility] [address] [address] [address] Ricky Valenzuela Bilirubin [Mass/Vol] 0.2 mg/dL Normal 0.2-1.0 [facility] Comment on above: Performed By: #### C MP, LIPID #### [facility] [address] [address] [address] Ricky Valenzuela Calcium [Mass/Vol] 9.0 mg/dL Normal 8.5-10.1 [facility] Comment on above: Performed By: #### C MP, LIPID #### [facility] [address] [address] [address] Ricky Valenzuela Chloride [Moles/Vol] 100 mmol/L Normal 98-107 [facility] Comment on above: Performed By: #### C MP, LIPID #### [facility] [address] [address] [address] Ricky Valenzuela CO2 [Moles/Vol] 32.2 mmol/L Critically high 21.0-32.0 [facility] Comment on above: Performed By: #### C MP, LIPID #### [facility] [address] [place] [address] Dr. Ricky Valenzuela Creatinine [Mass/Vol] 0.95 mg/dL Normal 0.55-1.02 [facility] Comment on above: Performed By: #### C MP, LIPID #### [facility] [address] [place] [address] Dr. Ricky Valenzuela EGFR-AF ITALIAN >60 Normal >=60 [facility] Comment on above: Performed By: #### C MP, LIPID #### [facility] [address] [place] [address] Dr. Ricky Valenzuela EGFR-NON AF ITALIAN >60 Normal >=60 [facility] Comment on above: Performed By: #### C MP, LIPID #### [facility] [address] [place] [address] Dr. Ricky Valenzuela Globulin (S) [Mass/Vol] 4.2 g/dL Normal [facility] Comment on above: Performed By: #### C MP, LIPID #### [facility] [address] [place] [address] Dr. Ricky Valenzuela Glucose [Mass/Vol] 200 mg/dL Critically high 74-106 [facility] Comment on above: Performed By: #### C MP, LIPID #### [facility] [address] [place] [address] Dr. Ricky Valenzuela Potassium [Moles/Vol] 4.1 mmol/L Normal 3.5-5.1 [facility] Comment on above: Performed By: #### C MP, LIPID #### [facility] [address] [place] [address] Dr. Ricky Valenzuela Protein [Mass/Vol] 7.5 g/dL Normal 6.4-8.2 [facility] Comment on above: Performed By: #### C MP, LIPID #### [facility] [address] [address] [address] Ricky Valenzuela Sodium [Moles/Vol] 139 mmol/L Normal 136-145 [facility] Comment on above: Performed By: #### C MP, LIPID #### [facility] [address] [address] [address] Ricky Valenzuela Urea nitrogen [Mass/Vol] 13.0 mg/dL Normal 7.0-18.0 [facility] Comment on above: Performed By: #### C MP, LIPID #### [facility] [address] [address] [address] Ricky Valenzuela Urea nitrogen/Creatinine [Mass ratio] 13.7 mg/mg Normal [facility] Comment on above: Performed By: #### C MP, LIPID #### [facility] [address] [address] [address] Ricky Valenzuela POINT OF CARE GLUCOSEon 06-12 Glucose [Mass/Vol] 176 mg/dL Critically high 74-106 [facility] Comment on above: Performed By: #### P OCGLUC #### [facility] [address] [address] [address] Ricky Valenzuela Vital Signs Date Time Vital Sign Value Performing Clinician Facility 01-18-2023 09:10-0500 Body height 156.21 cm Elle Hendricks Other [facility] Other 01-18-2023 09:10-0500 Body mass index (BMI) [Ratio] 42.82 kg/m2 Elle Hendricks Other [facility] Other 01-18-2023 09:10-0500 Body temperature 98.2 [degF] Elle Hendricks Other [facility] Other 01-18-2023 09:10-0500 Body weight 104.51 kg Elle Hendricks Other [facility] Other 01-18-2023 09:10-0500 Diastolic blood pressure 92 mm[Hg] Elle Dejesusmond Other [facility] Other 01-18-2023 09:10-0500 Respiratory rate 18 /min Elle Dejesusmond Other [facility] Other 01-18-2023 09:10-0500 SaO2% (BldA) [Mass fraction] 97 % Elle Dejesusmond Other [facility] Other 01-18-2023 09:10-0500 Systolic blood pressure 145 mm[Hg] Elle Dejesusmond Other [facility] Other Encounters Encounter Date Encounter Type Care Provider Facility Start: 02-25-2023 End: 02-25-2023 ambulatory ALICIA GARCIA Not Available Start: 01-29-2023 End: 01-29-2023 ambulatory SHAIKH EUFEMIAABBEY Not Available Start: 01-23-2023 End: 01-23-2023 ambulatory Ana Luisa Curtis Other [facility] Other Start: 01-23-2023 Office outpatient vi sit 15 minutes Ana Luisa Curtis [facility] Start: 01-18-2023 End: 01-18-2023 ambulatory Elle Hendricks Other [facility] Other Start: 01-18-2023 Office outpatient vi sit 15 minutes Elle Hendricks [facility] Start: 09-19-2022 End: 09-19-2022 ambulatory Ana Luisa Curtis Other [facility] Other Start: 09-19-2022 Telephone encounter Ana Luisa Curtis [facility] Start: 07-12-[address] JONATHAN EDWARDS Facili ty:H1 Start: 06-07-2022 End: 06-08-[address] JONATHAN EDWARDS Facility:[facility]1 Start: 05-02-2022 End: 05-02-2022 ambulatory Ana Luisa Curtis Other [facility] [employer] Other Start: 05-02-2022 Office outpatient ne w 30 minutes Ana Luisa Curtis [facility] Start: 04-12-2022 End: 04-13-[address] JONATHAN EDWARDS Facility:[facility]1 Start: 03-08-2022 End: 03-09-[address] JONATHAN EDWARDS Facility:[facility]1 Start: 02-16-2022 End: 02-17-[address] JONATHAN EDWARDS Facility:[facility]1 Start: 02-09-2022 End: 02-10-[address] RICARDO HOLM . Facility:[facility] Start: 11-16-2021 End: 11-17-[address] JONATHAN EDWARDS Facility:[facility] Start: 11-01-2021 End: 11-02-2021 ambulatory CRYS PIERCE . Facility:[facility]1 Start: 08-30-2021 End: 08-31-2021 ambulatory NIKKIE BARCLAY [facility] Start: 08-30-2021 End: 08-30-2021 Subsequent hospital visit by physician Sr Edwards DO Work Phone: [facility] Laboratory Comment on above: Routine cervical sme ar Start: 08-16-2021 Encounter for genera l adult medical examination without abnormal findings DR RICARDO HOLM . [facility] Start: 08-09-2021 End: 08-10-2021 Encounter for general [...] ion [Identifier] in Cervix by Cyto stain Sr House DO Work Phone: Plan of Treatment Date Care Activity Detail Author Start: 08-30-2024 Screening for malign ant neoplasm of cervix [facility] [employer] Start: 09-04-2022 End: 09-04-2022 Patient encounter procedure 09/04/2022 Office Visit Obstetrics and Gynecology Nikkie Barclay, TER[employer] - CNM [address] [facility] [address] [place] [address] [facility] Start: 10-12-2021 Influenza vaccination Flu vaccine (# 1) [facility] Start: 10-21-2013 Screening for malign ant neoplasm of breast Breast cancer screen [facility] Start: 10-21-2013 Shingles vaccine (1 of 2) Shingles vaccine (1 of 2) [facility] Start: 10-21-2008 Screening for malign ant neoplasm of colon [facility] Start: 2003 Lipid panel Lipids [facility] Start: 10-21-1998 Diabetes screen Diabetes screen [facility] Start: 10-21-1993 Screening for malign ant neoplasm of cervix HPV (without or with Pap) [facility] Start: 10-21-1982 DTaP/Tdap/Td vaccine (1 - Tdap) DTaP/Tdap/Td vaccine (1 - Tdap) [facility] Start: 10-21-1981 Hepatitis C screening Hepatitis C sc reen [facility] Start: 10-21-1978 HIV screening HIV screen [facility] Start: 1975 Depression Screen Depression Screen [facility] Start: 04-20-1964 COVID-19 Vaccine (#1) COVID-19 Vacci ne (#1) [facility] End: 08-30-2021 Cytopathology procedure, preparation of smear, genital source [facility] Routine Routine cervical smear 1 Occurrences starting 08/30/2021 until 08/30/2021 [facility] [place] [facility] [employer] Work Phone: Comment on above: 1 Occurrences starti ng 08/30/2021 until 08/30/2021 Payers Date Payer Category Payer Unknown [id number] 2.16.8 [id number] 1965 Unknown [id number] 2.16.84 [id number] 1963 Unknown [id number] 2.16.84 0.1.687263.3.579.2.593 1963 Unknown [id number] 2.16.84 0.1.103970.3.579.2.593 1963 Unknown [id number] 2.16.84 0.1.070441.3.579.2.593 1963 Unknown [id number] 2.16.84 0.1.165916.3.579.2.593 1963 Unknown [id number] 2.16.84 0.1.654068.3.579.2.593 1963 Unknown [id number] 2.16.84 0.1.641479.3.579.2.593 1963 Unknown [id number] 2.16.84 0.1.800317.3.579.2.593 1963 Unknown [id number] 2.16.84 0.1.071198.3.579.2.593 1963 Unknown [id number] 2.16.84 0.1.951002.3.579.2.593 1963 Unknown [id number] 2.16.84 0.1.568099.3.579.2.593 1963 Unknown [id number] 2.16.84 0.1.696109.3.579.2.593 1963 Unknown [id number] 2.16.84 0.1.598201.3.579.2.593 1963 Unknown [id number] 2.16.84 0.1.756816.3.579.2.593 1963 Unknown [id number] 2.16.84 0.1.111145.3.579.2.593 1963 Unknown [id number] 2.16.84 0.1.472558.3.579.2.593 1963 Unknown [id number] 2.16.84 0.1.987364.3.579.2.1259 1963 Unknown [id number] 2.16.840 .1.659131.3.579.2.1259 1961 Medicare [id number] 1.2 .[id number] 1959 Unknown [id number] 1.2.8 [id number] 1959 Unknown [id number] 2.16.8 40.1.942210.19 Social History Date Type Detail Facility Start: 08-30-2021 Tobacco smoking status [facility] Smokes tobacco daily [employer] Phone: History of tobacco use Cigarette Smoker [employer] Phone: Start: 08-30-2021 Tobacco use and exposure Smokeless tobacco non-user [employer] Phone: Start: 08-30-2021 Alcohol intake Current drinke r of alcohol (finding) [employer] Phone: Start: 08-30-2021 History SDOH Alcohol Comment occasional [employer] Phone: Start: 1965 Sex Assigned At Not on file B ON [employer] Phone: Start: 08-20-2021 End: 08-30-2021 Exposure to SARS-CoV-2 (event) Not sure [employer] Sex Assigned At Sex Assigned At Bir th [employer] [facility] Other Medical Equipment Procedure Code Equipment Code Equipment Origin al Text Equipment Identifier Dates USE TO TEST BLOO D SUGAR TWICE DAILY [id number] Start: 06-08-2021 Clinical Notes 06-20-2021 to 01-23-2023 Note Date & Type Note Facility 01-23-2023 Evaluation note Encounter Date Diagnosis Assessment Notes Jan, Right wrist pain (ICD-10 - M25.531) Jan, 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 We reviewed recent radiographs and performed a physical examination. Since patient has recently came off a steroid pack, and is taking colchicine, we will provide patient with a cortisone injection to the left wrist with 0.5 Kenalog/0/5 bupivacaine. Patient tolerated this well, no adverse reactions noted. Patient will f/u in 4 weeks. [facility] Other 12-08-2023 Evaluation note* Encounter Date Diagnosis Assessment Notes Treatment Notes Treatment Clinical Notes Jan, Left hand pain (ICD-10 - [...] left hand x-ray that was performed at [facility] which revealed degenerative changes in the hand as well as a remote avulsion fracture of the thumb. Patient states her family doctor is treating her for gout in her hand. Jan, History of gout (ICD-10 - Z87.39) Jan, Other Gout material w as printed [facility] Other 08-09-2023 Evaluation note* Encounter Date Diagnosis Assessment Notes Treatment Notes Treatment Clinical Notes Sep, Right wrist pain (ICD-10 - M25.531) [facility] Other 04-27-2023 NoteCONSULTATION CONSULTATION DATE: 06/07/2022 TO: [...] our patients to inform us about any stti-zer-nwjykrv medications or herbal remedies/nutritional supplements/alternative remedies. 2. [...] treatment options with their primary care provider.[facility] [id number] Evaluation note * Encounter Date Diagnosis Assessment [...] understanding and is agreeable to treatment plan. [facility] Other 01-26-2023 NoteCONSULTATION PROCEDURE DATE: 03/08/2022 PREOPERATIVE [...] will be followed up in the clinic.[facility] [id number] NotePROCEDURE: XR KNEE LT 4V or > [...] Electronically authenticated by: PATTIE SALTER Date: 2022-02-16 11:29[facility]12-30-2022 NoteCONSULTATION CONSULTATION DATE: 02/09/2022 HISTORY OF [...] office today. Patient agrees with this plan.[facility] [id number] NotePROCEDURE: XR WRIST RT MIN 3 V COMPARISON: None. HISTORY: Injury of right wrist FINDINGS: BONES:No acute fracture or dislocation. Corticated bone fragment identified along the first carpometacarpal joint [degenerative in nature SOFT TISSUES:Moderate diffuse soft tissue swelling EFFUSION:None visible. OTHER: Negative. IMPRESSION: Soft tissue swelling, no acute fracture Electronically authenticated by: RYAN GOLDMAN Date: 2021-11-16 18:59[facility] [id number] NoteCONSULTATION CONSULTATION DATE: 11/01/2021 HISTORY OF PRESENT [...] otherwise indicated. Patient agrees with this plan.[facility] [id number] NoteCONSULTATION PROCEDURE DATE: 11/01/2021 PRE AND POSTOPERATIVE [...] will be followed up in the clinic.[facility] [id number] NoteCONSULTATION PROCEDURE DATE: 08/09/2021 PREOPERATIVE DIAGNOSIS: Bilateral [...] will be followed up in the clinic. [facility] Signed and Approved by: CRYS PIERCE . 08/10/2021 13:37:00[facility] [id number] NoteCONSULTATION CONSULTATION DATE: 07/19/2021 HISTORY OF PRESENT [...] injections. Patient acknowledges and all questions answered. [facility] Signed and Approved by: CRYS PIERCE . 07/20/2021 10:33:00[facility]05-25-2022 NotePROCEDURE: XR FOOT RT MIN 3 [...] Electronically authenticated by: PATTIE SALTER Date: 2021-07-05 11:11[facility]05-10-2022 NoteCONSULTATION CONSULTATION DATE: 06/20/2021 CHIEF COMPLAINT: [...] like to proceed. CC: Jonathan Edwards M.D. [facility] Signed and Approved by: DR RICARDO HOLM . 06/27/2021 10:40:00[facility] Diagnosis Routine cervical smear Screening for malignant neoplasm of the cervix documented in this encounter [facility] Work Phone: History general Narrative - Reported* Type Description Date Medical History GERD (gastroesophageal reflux di sease) Medical History Migraine headache Medical History Arthritis Medical History Edema of both legs Medical History Diabetes mellitus, type 2 Medical History Chronic back pain Surgical History ablasion Surgical History back surgery Surgical History hysterectomy Surgical History tubal ligation Hospitalization History see above [employer] [facility] Other Summary Purpose Family History No Family History Records FoundNo Family History Records FoundNo Family History Records Found Advance Directives No Advanced Directives Records FoundNo Advanced Directives Records FoundNo Advanced Directives Records Found Additional Source Comments Care Teams (unrecognized sec tion and content) 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 Specialty Start Date End Date Sr Jonathan Edwards, [address] [place] [address] PCP - General Family Medicine 08/30/21 INFORMATION SOURCE (unrecogn ized section and content) DATE CREATED AUTHOR 09/10/2021 [facility] pitid DATE CREATED AUTHOR AUTHOR'S ORGANIZ ATION 06/08/2022 [facility] pital DATE CREATED AUTHOR AUTHOR'S ORGANIZ ATION 02/26/2023 [facility] d[facility] Specialists EPIC REASON FOR VISIT (unrecogniz ed section and content) Right Wrist PaincholchicineL EFT HAND PAIN/SWELLINGLeft Wrist Pain FOR RECORDS PERTAINING TO PATIENTS WHO ARE [...] BE BASED ON THE PRIMARY CLINICAL RECORDS. [facility] [employer] [facility]. provides no warranty or guarantee of the accuracy or completeness of information in this document.
== END 2023-03-20 09:06 | disposition home or self-care (01) ==
LOC: MAMMO 09:06
PROVIDERS: PCP Internal Medicine; Visit Provider Midwife
DX: E78.5 Hyperlipidemia, unspecified (principal); Z78.0 Asymptomatic menopausal state; Z12.31 Encounter for screening mammogram for malignant neoplasm of breast; Z80.42 Family history of malignant neoplasm of prostate; Z80.8 Family history of malignant neoplasm of other organs or systems
CPT/HCPCS: 36415; 77063; 77067; 77080; 80061; 80076

== ENCOUNTER 2023-03-20 09:36 | Outpatient (OUT) | payer OTHER, MEDICARE, SELFPAY ==
--- OUTSIDE RECORDS SUMMARY | 2023-03-20 10:02 | XMS_ITS | CCD ---
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 Name Role Phone House DO, Sr Jonathan Klein Primary Care Provider [phone] NIKKIE BARCLAY Referring Unavailabl e HOUSE, SR [...] Unavailable HOUSE, DR BASURTO Primary Care Unavailable DR PATTIE SALTER Consulting [...] Unavailable GAETANO, DR PATTIE Nieves Consulting Unavailable [facility], SUSSY Dos Santos Consulting Unavailable [place], DR BASURTO Attending Unavailable [place], DR BASURTO Primary Care Unavailable [place], DR BASURTO Admitting Unavailable [place], DR BASURTO Consulting Unavailable [place], DR BASURTO Primary Care Unavailable GAETANO, DR PATTIE Nieves Consulting Unavailable LAKSHMIPATHY ., NARENDSABAS Admitting Nellie vailable LAKSHMIPATHY ., NARCAMRYNATH Attending Nellie vailable LAKSHMIPATHY ., BILLY Consulting Nellie vailable HOUSE, DR BASURTO Admitting Unavailable [place], DR BASURTO Attending Unavailable [place], DR BASURTO Primary Care Unavailable GARRISON, DR RYAN Guzman Consulting Unavailable [place], DR JONATHAN Trimble Unavailable ALTA ., DR [...] Consulting Unavailable PIERCE ., CRYS Trimble Unavailable [place], DR BASURTO Primary Care Unavailable HOLM ., DR RICARDO Belcher Admitting Unavailable HOLM ., DR RICARDO Belcher Attending Unavailable LAKSHMIPATHY ., BILLY Consulting Nellie vailable [place], DR BASURTO Primary Care Unavailable HOLM ., [...] PATTIE SALTER Date: 2022-06-07 11:15 Normal [facility] CBC AUTO DIFFon 04-12-2022 BASO # 0.1 103/ul Normal 0.0-0.1 [facility] Comment on above: Performed By: #### C BC ####[facility] [address] [place] [id number]. Ricky Valenzuela Basophils/100 WBC (Bld) 0.5 % Normal 0.2-2.0 [facility] Comment on above: Performed By: #### C BC ####[facility] [address] [place] [id number]. Ricky Valenzuela EO # 0.3 103/ul Normal 0.0-0.7 [facility] Comment on above: Performed By: #### C BC ####[facility] [address] [place], [place] [id number]. Ricky Valenzuela Eosinophils/100 WBC (Bld) 3.0 % Normal 0.9-7.0 [facility] Comment on above: Performed By: #### C BC ####[facility] [address] [place] [address]Dr. Ricky Valenzuela Erythrocyte distribution width (RBC) [Ratio] 14.8 % Normal 11.0-15.0 [facility] Comment on above: Performed By: #### C BC ####[facility] [address] [place] [id number]. Ricky Valenzuela Hematocrit (Bld) [Volume fraction] 40.6 % Normal 36.0-48.0 [facility] Comment on above: Performed By: #### C BC ####[facility] [address] [place] [id number]. Ricky Valenzuela Hemoglobin (Bld) [Mass/Vol] 13.5 g/dL Normal 12.0-16.0 [facility] Comment on above: Performed By: #### C BC ####[facility] [address] [place] [id number]. Ricky Valenzuela IG # 0.16 10e3/ul Critically high 0.00-0.03 [facility] Comment on above: Performed By: #### C BC ####[facility] [address] [place] [id number]. Ricky Valenzuela IG % 1.4 % Critically high 0.0-0.5 [facility] Comment on above: Performed By: #### C BC ####[facility] [address]ck[address] [place] [id number]. Ricky Valenzuela LYMPH # 3.4 103/ul Normal 1.2-3.8 [facility] Comment on above: Performed By: #### C BC ####[facility] [address]cl[address] [place], [place] [address]Jd. Ricky Nicolas Lymphocytes/100 WBC (Bld) 30.4 % Normal 20.5-60.0 [facility] Comment on above: Performed By: #### C BC ####[facility] [address] [place] [id number]. Ricky Nicolas MANUAL DIFF REQ NO Normal [facility] Comment on above: Performed By: #### C BC ####[facility] [address]vcwd[address] [place] [id number]. Ricky Nicolas MCH (RBC) [Entitic mass] 31.8 pg Normal 26.7-34.0 [facility] Comment on above: Performed By: #### C BC ####[facility] [address] [place] [id number]. Ricky Valenzuela MCHC (RBC) [Mass/Vol] 33.3 g/dL Normal 29.9-35.2 [facility] Comment on above: Performed By: #### C BC ####[facility] [address]rqvf[address] [place] [id number]. Ricky Nicolas MCV (RBC) [Entitic vol] 95.5 fL Normal 81.0-99.0 [facility] Comment on above: Performed By: #### C BC ####[facility] [address] [place] [address]Dr. Ricky Valenzuela MONO # 0.9 103/ul Critically high 0.3-0.8 [facility] Comment on above: Performed By: #### C BC ####[facility] [address]ljnp[address] [place] [id number]. Ricky Nicolas Monocytes/100 WBC (Bld) 7.7 % Normal 1.7-12.0 [facility] Comment on above: Performed By: #### C BC ####[facility] [address]hv[address] [place] [address]Dr. Ricky Valenzuela NEUT # 6.3 103/ul Normal 1.4-6.5 [facility] Comment on above: Performed By: #### C BC ####[facility] [address]vtghl[address] [place] [address]Dr. Ricky Valenzuela Neutrophils/100 WBC (Bld) 57.0 % Normal 43.0-75.0 [facility] Comment on above: Performed By: #### C BC ####[facility] [address]ar[address] [place] [address]Dr. Ricky Valenzuela Platelet mean volume (Bld) [Entitic vol] 9.8 fL Normal 9.5-13.5 [facility] Comment on above: Performed By: #### C BC ####[facility] [address] [place] [address]Dr. Ricky Valenzuela PLT 246 103/ul Normal 150-450 [facility] Comment on above: Performed By: #### C BC ####[facility] [address]rap[address] [place] [id number]. Ricky Valenzuela RBC 4.25 106/ul Normal 4.20-5.40 [facility] Comment on above: Performed By: #### C BC ####[facility] [address]td[address] [place] [address]Dr. Ricky Valenzuela WBC 11.1 103/ul Critically high 4.0-11.0 The [facility] Comment on above: Performed By: #### C BC ####[facility] [address] [place], [place] [address]Dr. Ricky Valenzuela GLYCOHEMOGLOBIN A1Con 2022 ADA RECOMMENDATION SEE BELOW Normal [facility] Comment on above: Result Comment: ADA RECOMMENDED LIMIT 4.0 - 6.0 ADA THERAPEUTIC TARGET < 7.0 ACTION SUGGESTED > 7.0 Performed By: #### A 1C ####[facility] [address] [place], [place] [address]Dr. Ricky Valenzuela Glucose [Mass/Vol] 160 mg/dL Normal [facility] Comment on above: Performed By: #### A 1C ####[facility] [address]jb[address] [place] [id number]. Ricky Valenzuela HbA1c (Bld) [Mass fraction] 7.2 % Critically high 4.5-6.2 [facility] Comment on above: Performed By: #### A 1C ####[facility] [address]drq[address] [place] [id number]. Ricky Valenzuela MICROALBUMIN, RAND URon 03- mALB <1.3 Normal <=30.0 [facility] Comment on above: Performed By: #### M ALBR #### [facility] Laboratory [address] [address] [address] Ricky Vaelnzuela PROF 14(COMP METB)on 023 Albumin [Mass/Vol] 3.3 g/dL Critically low 3.4-5.0 [facility] Comment on above: Performed By: #### C MP #### [facility] [address] [address] [address] Ricky Valenzuela Albumin/Globulin [Mass ratio] 0.9 {ratio} Normal [facility] Comment on above: Performed By: #### C MP #### [facility] [address] [address] [address] Ricky Valenzuela ALP [Catalytic activity/Vol] 90 U/L Normal 46-116 [facility] Comment on above: Performed By: #### C MP #### [facility] [address] [address] [address] Ricky Valenzuela ALT [Catalytic activity/Vol] 42 U/L Normal 14-59 [facility] Comment on above: Performed By: #### C MP #### [facility] [address] [address] [address] Ricky Valenzuela Anion gap [Moles/Vol] 10.1 mmol/L Normal [facility] Comment on above: Performed By: #### C MP #### [facility] [address] [address] [address] Ricky Valenzuela AST [Catalytic activity/Vol] 21 U/L Normal 15-37 [facility] Comment on above: Performed By: #### C MP #### [facility] [address] [address] [address] Ricky Valenzuela Bilirubin [Mass/Vol] 0.3 mg/dL Normal 0.2-1.0 [facility] Comment on above: Performed By: #### C MP #### [facility] [address] [address] [address] Ricky Valenzuela Calcium [Mass/Vol] 9.8 mg/dL Normal 8.5-10.1 [facility] Comment on above: Performed By: #### C MP #### [facility] [address] [address] [address] Ricky Valenzuela Chloride [Moles/Vol] 99 mmol/L Normal 98-107 [facility] Comment on above: Performed By: #### C MP #### [facility] [address] [address] [address] Ricky Valenzuela CO2 [Moles/Vol] 33.7 mmol/L Critically high 21.0-32.0 [facility] Comment on above: Performed By: #### C MP #### [facility] [address] [address] [address] Ricky Valenzuela Creatinine [Mass/Vol] 0.94 mg/dL Normal 0.55-1.02 [facility] Comment on above: Performed By: #### C MP #### [facility] [address] [address] [address] Ricky Valenzuela EGFR-AF BELARUSIAN >60 Normal >=60 [facility] Comment on above: Performed By: #### C MP #### [facility] [address] [address] [address] Rikcy Valenzuela EGFR-NON AF BELARUSIAN >60 Normal >=60 [facility] Comment on above: Performed By: #### C MP #### [facility] [address] [address] [address] Ricky Valenzuela Globulin (S) [Mass/Vol] 3.8 g/dL Normal [facility] Comment on above: Performed By: #### C MP #### [facility] [address] [address] [address] Ricky Valenzuela Glucose [Mass/Vol] 168 mg/dL Critically high 74-106 [facility] Comment on above: Performed By: #### C MP #### [facility] Laboratory [address] [address] [address] Ricky Valenzuela Potassium [Moles/Vol] 4.8 mmol/L Normal 3.5-5.1 [facility] Comment on above: Performed By: #### C MP #### [facility] [address] [address] [address] Ricky Valenzuela Protein [Mass/Vol] 7.1 g/dL Normal 6.4-8.2 [facility] Comment on above: Performed By: #### C MP #### [facility] [address] [address] [address] Ricky Valenzuela Sodium [Moles/Vol] 138 mmol/L Normal 136-145 [facility] Comment on above: Performed By: #### C MP #### [facility] [address] [address] [address] Ricky Valenzuela Urea nitrogen [Mass/Vol] 22.0 mg/dL Critically high 7.0-18.0 [facility] Comment on above: Performed By: #### C MP #### [facility] [address] [address] [address] Ricky Valenzuela Urea nitrogen/Creatinine [Mass ratio] 23.4 mg/mg Normal [facility] Comment on above: Performed By: #### C MP #### [facility] [address] [address] [address] Ricky Valenzuela Cytologyon 08-30-2021 Cytology (NOTE) INTERPRETATION Vaginal material, (ThinPrep vial, Imaging-assisted review): Specimen Adequacy: Satisfactory for evaluation. Descriptive Diagnosis: Negative for intraepithelial lesion or malignancy. 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: CLARK Delacruz(ASCP) Electronically Signed Out zackary/09/07/2021 Source: A: Vaginal material, (ThinPrep vial, Imaging-assisted review) Clinical History Hysterectomy Surgery: Salpingostomy; Ovary removal Z12.4 Encounter for screening for malignant neoplasm of cervix GYNECOLOGIC CYTOLOGY REPORT Patient Name: KARINA DE OLIVEIRA [facility] Rec: [id number] Path Number: [id number] [facility] ANATOMIC PATHOLOGY [address] [place] [id number] Normal [facility] Comment on above: Performed By: #### P PPVP #### [address] [address] Analytical Chemist: Luca Cummins MD CBC AUTO DIFFon 08-09-2021 BASO # 0.1 103/ul Normal 0.0-0.1 [facility] Comment on above: Performed By: #### C BC #### [facility] [address] [address] [address] Ricky Valenzuela Basophils/100 WBC (Bld) 0.8 % Normal 0.2-2.0 [facility] Comment on above: Performed By: #### C BC #### [facility] [address] [address] [address] Ricky Valenzuela EO # 0.2 103/ul Normal 0.0-0.7 [facility] Comment on above: Performed By: #### C BC #### [facility] [address] [address] [address] Ricky Valenzuela Eosinophils/100 WBC (Bld) 2.1 % Normal 0.9-7.0 [facility] Comment on above: Performed By: #### C BC #### [facility] [address] [address] [address] Ricky Valenzuela Erythrocyte distribution width (RBC) [Ratio] 15.2 % Critically high 11.0-15.0 [facility] Comment on above: Performed By: #### C BC #### [facility] [address] [address] [address] Ricky Valenzuela Hematocrit (Bld) [Volume fraction] 41.5 % Normal 36.0-48.0 [facility] Comment on above: Performed By: #### C BC #### [facility] [address] [address] [address] Ricky Valenzuela Hemoglobin (Bld) [Mass/Vol] 13.5 g/dL Normal 12.0-16.0 [facility] Comment on above: Performed By: #### C BC #### [facility] [address] [address] [address] Ricky Valenzuela IG # 0.42 10e3/ul Critically high 0.00-0.03 [facility] Comment on above: Performed By: #### C BC #### [facility] Laboratory [address] [place] [address] Dr. Ricky Valenzuela IG % 3.8 % Critically high 0.0-0.5 [facility] Comment on above: Performed By: #### C BC #### [facility] Laboratory [address] [place] [address] Dr. Ricky Valenzuela LYMPH # 3.3 103/ul Normal 1.2-3.8 [facility] Comment on above: Performed By: #### C BC #### [facility] Laboratory [address] [place] [address] Dr. Ricky Valenzuela Lymphocytes/100 WBC (Bld) 29.1 % Normal 20.5-60.0 [facility] Comment on above: Performed By: #### C BC #### [facility] [address] [place] [address] Dr. Ricky Valenzuela MANUAL DIFF REQ NO Normal [facility] Comment on above: Performed By: #### C BC #### [facility] [address] [place] [address] Dr. Ricky Valenzuela MCH (RBC) [Entitic mass] 32.4 pg Normal 26.7-34.0 [facility] Comment on above: Performed By: #### C BC #### [facility] [address] [place] [address] Dr. Ricky Valenzuela MCHC (RBC) [Mass/Vol] 32.5 g/dL Normal 29.9-35.2 [facility] Comment on above: Performed By: #### C BC #### [facility] [address] [place] [address] Dr. Ricky Valenzuela MCV (RBC) [Entitic vol] 99.5 fL Critically high 81.0-99.0 [facility] Comment on above: Performed By: #### C BC #### [facility] [address] [place] [address] Dr. Ricky Valenzuela MONO # 0.8 103/ul Normal 0.3-0.8 [facility] Comment on above: Performed By: #### C BC #### [facility] [address] [place] [address] Dr. Ricky Valenzuela Monocytes/100 WBC (Bld) 7.5 % Normal 1.7-12.0 [facility] Comment on above: Performed By: #### C BC #### [facility] [address] [place] [address] Dr. Ricky Valenzuela NEUT # 6.3 103/ul Normal 1.4-6.5 [facility] Comment on above: Performed By: #### C BC #### [facility] [address] [place] [address] Dr. Ricky Valenzuela Neutrophils/100 WBC (Bld) 56.7 % Normal 43.0-75.0 [facility] Comment on above: Performed By: #### C BC #### [facility] [address] [place] [address] Dr. Ricky Valenzuela Platelet mean volume (Bld) [Entitic vol] 9.8 fL Normal 9.5-13.5 [facility] Comment on above: Performed By: #### C BC #### [facility] [address] [place] [address] Dr. Ricky Valenzuela PLT 265 103/ul Normal 150-450 [facility] Comment on above: Performed By: #### C BC #### [facility] [address] [place] [address] Dr. Ricky Valenzuela RBC 4.17 106/ul Critically low 4.20-5.40 [facility] Comment on above: Performed By: #### C BC #### [facility] [address] [place] [address] Dr. Ricky Valenzuela WBC 11.2 103/ul Critically high 4.0-11.0 [facility] Comment on above: Performed By: #### C BC #### [facility] Laboratory [id number] Ricky Valenzuela GLYCOHEMOGLOBIN A1Con 2021 ADA RECOMMENDATION SEE BELOW Normal [facility] Comment on above: Result Comment: ADA RECOMMENDED LIMIT 4.0 - 6.0 ADA THERAPEUTIC TARGET < 7.0 ACTION SUGGESTED > 7.0 Performed By: #### A 1C ####[facility] [address] [place], [place] [address]BbDr. Ricky Valenzuela Glucose [Mass/Vol] 183 mg/dL Normal [facility] Comment on above: Performed By: #### A 1C ####[facility] [address] [place], [place] [address]EeDr. Ricky Valenzuela HbA1c (Bld) [Mass fraction] 8.0 % Critically high 4.5-6.2 [facility] Comment on above: Performed By: #### A 1C ####[facility] [address] [place], [place] [address]TpDr. Ricky Valenzuela LIPID PROFILEon 08-09-2021 CHOL-HDL RATIO NORM SEE BELOW Normal [facility] Comment on above: Result Comment: 3.3 - 4.4 LOW RISK 4.4 - 7.1 AVERAGE RISK 7.1 - 11.0 MODERATE RISK >11.0 HIGH RISK Performed By: #### C MP, LIPID #### [facility] [phone] Ricky Valenzuela Cholesterol [Mass/Vol] 239 mg/dL Critically high <=200 [facility] Comment on above: Performed By: #### C MP, LIPID #### [facility] [id number] Ricky Valenzuela Cholesterol in HDL [Mass/Vol] 36 mg/dL Critically low 40-60 [facility] Comment on above: Performed By: #### C MP, LIPID #### [facility] [address] [id number] Ricky Valenzuela Cholesterol in LDL [Mass/Vol] 164.2 mg/dL Normal [facility] Comment on above: Performed By: #### C MP, LIPID #### [facility] [address] [address] [address] Ricky Valenzuela Cholesterol.total/Cho lesterol in HDL [Mass ratio] 6.6 {ratio} Normal [facility] Comment on above: Performed By: #### C MP, LIPID #### [facility] [address] [address] [address] Ricky Valenzuela HDL NORMAL > or = 60 mg/dl - LO W CARDIOVASCULAR RISK <40 mg/dl - HIGH CARDIOVASCULAR RISK Normal [facility] Comment on above: Performed By: #### C MP, LIPID #### [facility] [address] [address] [address] Ricky Valenzuela LDL CALC NORMAL SEE BELOW Normal [facility] Comment on above: Result Comment: <100 mg/dl OPTIMAL 100 - 129 mg/dl NEAR OR ABOVE OPTIMAL 130 - 159 mg/dl BORDERLINE HIGH 160 - 189 mg/dl HIGH >190 mg/dl VERY HIGH Performed By: #### C MP, LIPID #### [facility] [address] [address] [address] Ricky Valenzuela Triglyceride [Mass/Vol] 194 mg/dL Critically high <=150 [facility] Comment on above: Performed By: #### C MP, LIPID #### [facility] [address] [address] [address] Ricky Valenzuela VLDL CALC 38.8 mg/dL Normal [facility] Comment on above: Performed By: #### C MP, LIPID #### [facility] [facility] [address] [address] [address] Ricky Valenzuela MICROALBUMIN, RAND URon 07-13 mALB 13.1 mg/L Normal <=30.0 [facility] Comment on above: Performed By: #### M ALBR ####[facility] [id number] [address]Dr. Ricky Valenzuela PROF 14(COMP METB)on 022 Albumin [Mass/Vol] 3.3 g/dL Critically low 3.4-5.0 [facility] Comment on above: Performed By: #### C MP, LIPID #### [facility] [address] [address] [address] Ricky Valenzuela Albumin/Globulin [Mass ratio] 0.8 {ratio} Normal [facility] Comment on above: Performed By: #### C MP, LIPID #### [facility] [address] [address] [address] Ricky Valenzuela ALP [Catalytic activity/Vol] 93 U/L Normal 46-116 [facility] Comment on above: Performed By: #### C MP, LIPID #### [facility] [address] [address] [address] Ricky Valenzuela ALT [Catalytic activity/Vol] 37 U/L Normal 14-59 [facility] Comment on above: Performed By: #### C MP, LIPID #### [facility] [address] [place] [address] Dr. Ricky Valenzuela Anion gap [Moles/Vol] 10.9 mmol/L Normal [facility] Comment on above: Performed By: #### C MP, LIPID #### [facility] [address] [address] [address] Ricky Valenzuela AST [Catalytic activity/Vol] 10 U/L Critically low 15-37 [facility] Comment on above: Performed By: #### C MP, LIPID #### [facility] [address] [address] [address] Ricky Valenzuela Bilirubin [Mass/Vol] 0.2 mg/dL Normal 0.2-1.0 [facility] Comment on above: Performed By: #### C MP, LIPID #### [facility] [address] [address] [address] Ricky Valenzuela Calcium [Mass/Vol] 9.0 mg/dL Normal 8.5-10.1 [facility] Comment on above: Performed By: #### C MP, LIPID #### [facility] [address] [address] [address] Ricky Valenzuela Chloride [Moles/Vol] 100 mmol/L Normal 98-107 [facility] Comment on above: Performed By: #### C MP, LIPID #### [facility] [address] [address] [address] Ricky Valenzuela CO2 [Moles/Vol] 32.2 mmol/L Critically high 21.0-32.0 [facility] Comment on above: Performed By: #### C MP, LIPID #### [facility] [address] [place] [address] Dr. Ricky Valenzuela Creatinine [Mass/Vol] 0.95 mg/dL Normal 0.55-1.02 [facility] Comment on above: Performed By: #### C MP, LIPID #### [facility] [address] [place] [address] Dr. Ricky Valenzuela EGFR-AF BELARUSIAN >60 Normal >=60 [facility] Comment on above: Performed By: #### C MP, LIPID #### [facility] [address] [place] [address] Dr. Ricky Valenzuela EGFR-NON AF BELARUSIAN >60 Normal >=60 [facility] Comment on above: Performed By: #### C MP, LIPID #### [facility] [address] [place] [address] Dr. Ricky Valenzuela Globulin (S) [Mass/Vol] 4.2 g/dL Normal [facility] Comment on above: Performed By: #### C MP, LIPID #### [facility] [address] [place] [address] Dr. Ricky Valenzuela Glucose [Mass/Vol] 200 mg/dL Critically high 74-106 [facility] Comment on above: Performed By: #### C MP, LIPID #### [facility] [address] [place] [address] Dr. Ricky Valenzuela Potassium [Moles/Vol] 4.1 mmol/L Normal 3.5-5.1 [facility] Comment on above: Performed By: #### C MP, LIPID #### [facility] [address] [place] [address] Dr. Ricky Valenzuela Protein [Mass/Vol] 7.5 g/dL Normal 6.4-8.2 [facility] Comment on above: Performed By: #### C MP, LIPID #### [facility] [address] [address] [address] Ricky Valenzuela Sodium [Moles/Vol] 139 mmol/L Normal 136-145 [facility] Comment on above: Performed By: #### C MP, LIPID #### [facility] [address] [address] [address] Ricky Valenzuela Urea nitrogen [Mass/Vol] 13.0 mg/dL Normal 7.0-18.0 [facility] Comment on above: Performed By: #### C MP, LIPID #### [facility] [address] [address] [address] Ricky Valenzuela Urea nitrogen/Creatinine [Mass ratio] 13.7 mg/mg Normal [facility] Comment on above: Performed By: #### C MP, LIPID #### [facility] [address] [address] [address] Ricky Valenzuela POINT OF CARE GLUCOSEon 06-12 Glucose [Mass/Vol] 176 mg/dL Critically high 74-106 [facility] Comment on above: Performed By: #### P OCGLUC #### [facility] [address] [address] [address] Ricky Valenzuela Vital Signs Date Time Vital Sign Value Performing Clinician Facility 01-18-2023 09:10-0500 Body height 156.21 cm Elle Hendricks Other [facility] Other 01-18-2023 09:10-0500 Body mass index (BMI) [Ratio] 42.82 kg/m2 Elle Hendricks Other [facility] Other 01-18-2023 09:10-0500 Body temperature 98.2 [degF] Elle Hendricks Other [facility] Other 01-18-2023 09:10-0500 Body weight 104.51 kg Elle Hendricks Other [facility] Other 01-18-2023 09:10-0500 Diastolic blood pressure 92 mm[Hg] Elle Dejesusmond Other [facility] Other 01-18-2023 09:10-0500 Respiratory rate 18 /min Elle Dejesusmond Other [facility] Other 01-18-2023 09:10-0500 SaO2% (BldA) [Mass fraction] 97 % Elle Dejesusmond Other [facility] Other 01-18-2023 09:10-0500 Systolic blood pressure 145 mm[Hg] Elle Dejesusmond Other [facility] Other Encounters Encounter Date Encounter Type Care Provider Facility Start: 02-25-2023 End: 02-25-2023 ambulatory ALICIA GARCIA Not Available Start: 01-29-2023 End: 01-29-2023 ambulatory SHAIKH EUFEMIAABBEY Not Available Start: 01-23-2023 End: 01-23-2023 ambulatory Ana Luisa Curtis Other [facility] Other Start: 01-23-2023 Office outpatient vi sit 15 minutes Ana Luisa Curtis [facility] Start: 01-18-2023 End: 01-18-2023 ambulatory Elle Hendricks Other [facility] Other Start: 01-18-2023 Office outpatient vi sit 15 minutes Elle Hendricks [facility] Start: 09-19-2022 End: 09-19-2022 ambulatory Ana Luisa Curtis Other [facility] Other Start: 09-19-2022 Telephone encounter Ana Luisa Curtis [facility] Start: 07-12-[address] JONATHAN EDWARDS Facili ty:[facility]1 Start: 06-07-2022 End: 06-08-[address] JONATHAN EDWARDS Facility:[facility] Start: 05-02-2022 End: 05-02-2022 ambulatory Ana Luisa Curtis Other [facility] Other Start: 05-02-2022 Office outpatient ne w 30 minutes Ana Luisa Curtis [facility] Start: 04-12-2022 End: 04-13-[address] JONATHAN EDWARDS Facility:[facility] Start: 03-08-2022 End: 03-09-[address] JONATHAN EDWARDS Facility:[facility] Start: 02-16-2022 End: 02-17-[address] JONATHAN EDWARDS Facility:[facility] Start: 02-09-2022 End: 02-10-[address] RICARDO HOLM . Facility:[facility] Start: 11-16-2021 End: 11-17-[address] JONATHAN EDWARDS Facility:[facility] Start: 11-01-2021 End: 11-02-2021 ambulatory CRYS PIERCE . Facility:[facility]1 Start: 08-30-2021 End: 08-31-2021 ambulatory NIKKIE BARCLAY [facility] Start: 08-30-2021 End: 08-30-2021 Subsequent hospital visit by physician Sr Edwards DO Work Phone: [facility] Comment on above: Routine cervical sme ar Start: 08-16-2021 Encounter for genera l adult medical examination without abnormal findings DR RICARDO HOLM . [facility] Start: 08-09-2021 End: 08-10-2021 Encounter for general [...] Screening for malign ant neoplasm of cervix [facility] [email or web address] Start: 09-04-2022 End: 09-04-2022 Patient encounter procedure 09/04/2022 Office Visit Obstetrics and Gynecology Nikkie Barclay, NAIL PULLER - CNM [address] [facility] [address] [place] [address] [facility] Start: 10-12-2021 Influenza vaccination Flu vaccine (# 1) [facility] Start: 10-21-2013 Screening for malign ant neoplasm of breast Breast cancer screen [facility] Start: 10-21-2013 Shingles vaccine (1 of 2) Shingles vaccine (1 of 2) [facility] Start: 10-21-2008 Screening for malign ant neoplasm of colon [facility] Start: 2003 Lipid panel Lipids [facility] Start: 10-21-1998 Diabetes screen Diabetes screen [facility] Start: 10-21-1993 Screening for malign ant neoplasm of cervix HPV (without or with Pap) [facility] Start: 10-21-1982 DTaP/Tdap/Td vaccine (1 - Tdap) DTaP/Tdap/Td vaccine (1 - Tdap) [facility] Start: 10-21-1981 Hepatitis C screening Hepatitis C sc reen [facility] Start: 10-21-1978 HIV screening HIV screen [facility] Start: 1975 Depression Screen Depression Screen [facility] Start: 04-20-1964 COVID-19 Vaccine (#1) COVID-19 Vacci ne (#1) [facility] End: 08-30-2021 Cytopathology procedure, preparation of smear, genital source [facility] Routine Routine cervical smear 1 Occurrences starting 08/30/2021 until 08/30/2021 [facility] [email or web address] Work Phone: Comment on above: 1 Occurrences starti ng 08/30/2021 until 08/30/2021 Payers Date Payer Category Payer Unknown [id number] 2.16.8 [id number] 1965 Unknown [id number] 2.16.84 0.1.056454.3.579.2.593 1965 Unknown [id number] 2.16.84 0.1.838539.3.579.2.593 1965 Unknown [id number] 2.16.84 0.1.140185.3.579.2.593 1965 Unknown [id number] 2.16.84 0.1.684263.3.579.2.593 1963 Unknown [id number] 2.16.84 0.1.679881.3.579.2.593 1963 Unknown [id number] 2.16.84 0.1.325514.3.579.2.593 1965 Unknown [id number] 2.16.84 0.1.726690.3.579.2.593 1963 Unknown [id number] 2.16.84 0.1.941507.3.579.2.593 1965 Unknown [id number] 2.16.84 0.1.327616.3.579.2.593 1963 Unknown [id number] 2.16.84 0.1.000359.3.579.2.593 1963 Unknown [id number] 2.16.84 0.1.809115.3.579.2.593 1963 Unknown [id number] 2.16.84 0.1.645775.3.579.2.593 1963 Unknown [id number] 2.16.84 0.1.206145.3.579.2.593 1963 Unknown [id number] 2.16.84 0.1.779902.3.579.2.593 1963 Unknown [id number] 2.16.84 0.1.078763.3.579.2.593 1965 Unknown [id number] 2.16.84 0.1.311341.3.579.2.593 1965 Unknown [id number] 2.16.84 0.1.149111.3.579.2.1259 1965 Unknown [id number] 2.16.840 .1.605790.3.579.2.1259 1961 Medicare [id number] 1.2 .[id number] 1959 Unknown [id number] 1.2.8 [id number] 1959 Unknown [id number] 2.16.8 40.1.640082.19 Social History Date Type Detail Facility Start: 08-30-2021 Tobacco smoking status RUST Smokes tobacco daily [facility] Phone: History of tobacco use Cigarette Smoker [facility] Phone: Start: 08-30-2021 Tobacco use and exposure Smokeless tobacco non-user [facility]: Start: 08-30-2021 Alcohol intake Current drinke r of alcohol (finding) [facility] Phone: Start: 08-30-2021 History SDOH Alcohol Comment occasional [facility] Phone: Start: 1965 Sex Assigned At Not on file B ON [facility] Phone: Start: 08-20-2021 End: 08-30-2021 Exposure to SARS-CoV-2 (event) Not sure Nixon Sex Assigned At Sex Assigned At Bir th [facility] Other Medical Equipment Procedure Code Equipment Code Equipment Origin al Text Equipment Identifier Dates USE TO TEST BLOO D SUGAR TWICE DAILY [id number] Start: 06-08-2021 Clinical Notes 06-20-2021 to 01-23-2023 [...] noted. Patient will f/u in 4 weeks. [facility] Other 12-08-2023 Evaluation note* Encounter Date Diagnosis [...] left hand x-ray that was performed at [facility] which revealed degenerative changes in the hand as well as a remote avulsion fracture of the thumb. Patient states her family doctor is treating her for gout in her hand. Jan, History of gout (ICD-10 - Z87.39) Jan, Other Gout material w as printed [facility] Other 08-09-2023 Evaluation note* Encounter Date Diagnosis Assessment Notes Treatment Notes Treatment Clinical Notes Sep, Right wrist pain (ICD-10 - M25.531) [facility] Other 04-27-2023 NoteCONSULTATION CONSULTATION DATE: 06/07/2022 TO: [...] our patients to inform us about any hgvz-utv-[id number] medications or herbal remedies/nutritional supplements/alternative remedies. 2. [...] treatment options with their primary care provider.[id number] Evaluation note * Encounter Date Diagnosis Assessment [...] understanding and is agreeable to treatment plan. [facility] Other 01-26-2023 NoteCONSULTATION PROCEDURE DATE: 03/08/2022 PREOPERATIVE [...] will be followed up in the clinic.[id number] NotePROCEDURE: XR KNEE LT 4V or > [...] Electronically authenticated by: PATTIE SALTER Date: 2022-02-16 11:29[facility]12-30-2022 NoteCONSULTATION CONSULTATION DATE: 02/09/2022 HISTORY OF PRESENT [...] office today. Patient agrees with this plan.[id number] NotePROCEDURE: XR WRIST RT MIN 3 V COMPARISON: None. HISTORY: Injury of right wrist FINDINGS: BONES:No acute fracture or dislocation. Corticated bone fragment identified along the first carpometacarpal joint [degenerative in nature SOFT TISSUES:Moderate diffuse soft tissue swelling EFFUSION:None visible. OTHER: Negative. IMPRESSION: Soft tissue swelling, no acute fracture Electronically authenticated by: RYAN GOLDMAN Date: 2021-11-16 18:59[id number] NoteCONSULTATION CONSULTATION DATE: 11/01/2021 HISTORY OF PRESENT [...] otherwise indicated. Patient agrees with this plan.[id number] NoteCONSULTATION PROCEDURE DATE: 11/01/2021 PRE AND POSTOPERATIVE [...] will be followed up in the clinic.[id number] NoteCONSULTATION PROCEDURE DATE: 08/09/2021 PREOPERATIVE DIAGNOSIS: Bilateral [...] will be followed up in the clinic. [facility] Signed and Approved by: CRYS PIERCE . 08/10/2021 13:37:00[id number] NoteCONSULTATION CONSULTATION DATE: 07/19/2021 HISTORY OF PRESENT [...] injections. Patient acknowledges and all questions answered. [facility] Signed and Approved by: CRYS PIERCE . 07/20/2021 10:33:00[facility]05-25-2022 NotePROCEDURE: XR FOOT RT MIN 3 VIEWS [...] Electronically authenticated by: PATTIE SALTER Date: 2021-07-05 11:11[facility]05-10-2022 NoteCONSULTATION CONSULTATION DATE: 06/20/2021 CHIEF COMPLAINT: Low [...] like to proceed. CC: Jonathan Edwards M.D. [facility] Signed and Approved by: DR RICARDO HOLM . 06/27/2021 10:40:00[facility] Diagnosis Routine cervical smear Screening for malignant neoplasm of the cervix documented in this encounter [facility] Work Phone: History general Narrative - Reported* Type Description Date Medical History GERD (gastroesophageal reflux di sease) Medical History Migraine headache Medical History Arthritis Medical History Edema of both legs Medical History Diabetes mellitus, type 2 Medical History Chronic back pain Surgical History ablasion Surgical History back surgery Surgical History hysterectomy Surgical History tubal ligation Hospitalization History see above [facility] Other Summary Purpose Family History No Family History Records FoundNo Family History Records FoundNo Family History Records Found Advance Directives No Advanced Directives Records FoundNo Advanced Directives Records FoundNo Advanced Directives Records Found Additional Source Comments Care Teams (unrecognized sec tion and content) [employer] Relationship Specialty Start Date End Date Sr Jonathan Edwards, [address] [place] [address] PCP - General Family Medicine 08/30/21 INFORMATION SOURCE (unrecogn ized section and content) DATE CREATED AUTHOR 09/10/2021 [facility] DATE CREATED AUTHOR AUTHOR'S ORGANIZ ATION 06/08/2022 [facility] pital DATE CREATED AUTHOR AUTHOR'S ORGANIZ ATION 02/26/2023 [facility] EPIC REASON FOR VISIT (unrecogniz [...] BE BASED ON THE PRIMARY CLINICAL RECORDS. [facility] [employer] [facility]. provides no warranty or guarantee of the accuracy or completeness of information in this document.
[2023-03-20 11:05] LABS: Alanine Aminotransferase 26 U/L (14-59); Albumin Globulin Ratio 0.8; Albumin Level 3.3 g/dL (3.4-5.0); Alkaline Phosphatase 66 U/L (46-116); Aspartate Amino Transferase 15 U/L (15-37); Bilirubin Direct 0.1 mg/dL (0.0-0.2); Bilirubin Total 0.3 mg/dL (0.2-1.0); Chol HDL Ratio 2.3; Cholesterol 110 mg/dL (<=200); Globulin 4.2 g/dL; HDL Cholesterol 47 mg/dL (40-60); LDL Cholesterol Calculated 42.4 mg/dL; Total Protein 7.5 g/dL (6.4-8.2); Triglycerides 103 mg/dL (<=150); VLDL CHOLESTEROL 20.6 mg/dL
== END 2023-03-20 09:37 | disposition home or self-care (01) ==
LOC: LAB 09:38
PROVIDERS: PCP Internal Medicine; Visit Provider Internal Medicine
DX: E78.5 Hyperlipidemia, unspecified (principal)
CPT/HCPCS: 36415; 80061; 80076

== ENCOUNTER 2023-05-22 11:11 | Outpatient (OUT) | payer OTHER, MEDICARE, SELFPAY ==
--- NOTE | 2023-05-22 15:59 | P.CN_ITS ---
Consult Note: HPI Data of Consult Patient: known to practice within the last 3 years Requesting Physician: Chela Tijerina NP Primary Care Provider: Shaikh Maricel MD Consult Narrative Reason for consult: f/u Narrative: Brian Weir a pleasant 57 year old female presents for evaluation and management of chronic low back pain. Patient reporting pain 8/10 in low back and bilateral hips, reports constant throbbing sharp bone rubbing pain. Pain increased with twisting standing walking stairs standing activity sleeping and weather changes, pain improved with massage lying and sitting. Patient has an extensive hx of neck and low back pain. Patient utilizes lyrica 75mg TID, diclofenac 75mg BID, ibuprofen PRN, baclofen 10mg 1-2 tabs HS, and percocet 5- 325mg PRN. Patient would like to discuss additional injection options for low back pain. JAYME 60%. cc:: CC: Chela Tijerina NP Review of Systems ROS Status of ROS 10 or more systems reviewed and unremark able except as noted in history and below Musculoskeletal Reports: back pain, neck pain and joint pain PFSH PFSH Medical History Acid reflux ?K21.9 - Gastro-esophageal reflux disease without esophagitis (ICD-10) Back pain ?M54.9 - Dorsalgia, unspecified (ICD-10) Diabetes ?E11.9 - Type 2 diabetes mellitus without complications (ICD-10) Heartburn ?R12 - Heartburn (ICD-10) Neck pain ?M54.2 - Cervicalgia (ICD-10) Obesity ?E66.9 - Obesity, unspecified (ICD-10) Osteoarthritis ?M19.90 - Unspecified osteoarthritis, unspecified site (ICD-10) Smoker ?F17.200 - Nicotine dependence, unspecified, uncomplicated (ICD-10) TMJ (dislocation of temporomandibular joint) ?S03.00XA - Dislocation of jaw, unspecified side, initial encounter (ICD-10) Tubal ?O00.109 - Unspecified tubal without intrauterine (ICD- 10) Upper back pain ?M54.9 - Dorsalgia, unspecified (ICD-10) Surgical History H/O: hysterectomy ?Z90.710 - Acquired absence of both cervix and uterus (ICD-10) S/P lumbar spine operation ?Z98.890 - Other specified postprocedural states (ICD-10) Meds Home Medications and Allergies Home Medications ?Medication ?Instructions ?Recorded ?Confirmed ?Type alendronate 70 mg tablet 70 mg PO QWEEK 07/20/22 01/01/23 History allopurinol 300 mg tablet 300 mg PO DAILY 07/20/22 01/01/23 History apple cider vinegar 600 mg capsule mg PO 07/20/22 History aspirin 81 mg tablet,delayed 81 mg PO DAILY 07/20/22 01/01/23 History release (Adult Aspirin Regimen) baclofen 10 mg tablet 10 mg PO TID 07/20/22 01/01/23 History cholecalciferol (vitamin D3) 25 1,000 unit PO DAILY 07/20/22 01/01/23 History mcg (1,000 unit) capsule diclofenac sodium 75 mg 75 mg PO BID 07/20/22 01/01/23 History tablet,delayed release divalproex 500 mg tablet,delayed 500 mg PO BID 07/20/22 01/01/23 History release (Depakote) glucosamine YLb-F9-Lpsnopics 1 tab PO DAILY 07/20/22 01/01/23 History krzysztof 1,500 mg-400 unit-100 mg tablet (Osteo Bi-Flex (5-Loxin)) glyburide 1.25 mg tablet 1.25 mg PO DAILY 07/20/22 01/01/23 History hydrochlorothiazide 25 mg tablet 25 mg PO DAILY 07/20/22 01/01/23 History lactobacillus combo no.13 1 1 cap PO DAILY 07/20/22 01/01/23 History billion cell capsule,delayed release (Probiotic Pearls Complete) multivitamin 1 tab PO DAILY 07/20/22 01/01/23 History oxycodone-acetaminophen 5 mg-325 1 tab PO DAILY 07/20/22 01/01/23 History mg tablet prasterone (dhea) 50 mg capsule 50 mg PO DAILY 07/20/22 01/01/23 History (DHEA) pregabalin 50 mg capsule (Lyrica) 50 mg PO TID 07/20/22 01/01/23 History trazodone 50 mg tablet 50 mg PO BEDTIME 07/20/22 01/01/23 History methocarbamol 750 mg tablet 750 mg PO .QHS #30 tabs 05/22/23 Rx oxycodone-acetaminophen 5 mg-325 1 tab PO DAILY PRN pain #30 tabs 05/22/23 Rx mg tablet (Percocet) Allergies Allergy/AdvReac Type Severity Reaction Status Date / Time No Known Drug Allergies Allergy Verified 10/30/22 07:18 Exam Constitutional Documenting provider has reviewed patient's vital signs: yes Common normals: no apparent distress, oriented x3, healthy appearing, alert and well nourished General appearance: cooperative Nutritional appearance: obese HENMT Common normals: normocephalic, hearing grossly normal bilaterally and moist oral mucous membranes Head and scalp: normocephalic Eye Common normals: PERRL Pupil: PERRL Neck & C-Spine Common normals: full ROM General: normal visual inspection Cervical spine: pain with cervical ROM Other: trigger point to right occipital area tenderness and pain at bilateral C3/4 4/5 facets predominately axial neck pain without radiculopathy Chest Common normals: inspection of chest normal Respiratory Common normals: normal respiratory effort, no retractions and no use of accessory muscles Back & Pelvis Lumbar spine/lower back: ROM limited, pain with ROM and straight leg raise negative bilaterally Sacroiliac joints: SI joint(s) abnormal (bilateral +paris, FADIR, gaenslens, thigh thrust ) Other: increased heaviness weakness cramping of legs with ambulation, improved with rest and forward flexion negative radiculopathy on exam strength 5/5 in BLE Extremity Common normals: normal to inspection and full ROM Neuro Common normals: oriented x3, CN's II-XII intact bilaterally, moves all extremities, no focal motor deficits, no sensory deficits noted and deep tendon reflexes 2+ bilaterally Sensorium/orientation: alert Gait (neuro): antalgic Motor exam: strength 5/5 throughout and no movement abnormalities noted Psych Common normals: mental status grossly normal, thought process normal, cooperative, affect normal, speech normal and activity/motor behavior normal Speech: normal speech Thought process: normal thought process Results Additional Findings Additional findings: If on a controlled substance or opioids, I have checked an [place] report on this patient and there are no aberrancies noted in the prescribing history.??If on a controlled substance or opioid a drug screen was completed and reviewed within the last year, and if there has not been a drug screen completed we ordered one today to monitor higher risk, state monitored pain medication use. As part of providing excellent, safe, comprehensive care, the following was completed at our patient's visit: 1. A medication reconciliation and review to ensure accurate knowledge of current/active medications, including asking our patients to inform us about any lenp-cgh-ddheocf medications or herbal remedies/nutritional supplements/alternative remedies. 2. A review to specifically ensure our patients have had annual screening for screening for depression, screening for tobacco use, and screening for unhealthy alcohol use. For concerning screenings had a discussion with the patient, provided patient education, and recommended follow-up with primary care provider when appropriate. If patient noted with a risk of falling, they received education on strength, gait, and balance training to prevent future risk of falling. Assessment and Plan Assessment and Plan (1) Lumbar spondylosis: (2) Lumbar stenosis with neurogenic claudication: (3) Compression fracture of L1 vertebra: (4) Chronic prescription opiate use: Assessment and Plan: I feel these medications are improving the patient's quality of life and allow them to tolerate activities of daily living as well as participate in recreational activity.? The patient does not report intolerable side effects. The patient is NOT opioid naive and non-pharmacologic and non-opioid treatment has failed to significantly relieve the patient's pain and improve functionality. The patient has a diagnosis that is related to a somatic or visceral pain etiology. ? ?? I reviewed with the patient the potential risks and side effects with the use of? opioid medications including but not limited to respiratory depression,? sedation, and even . I verified the patient has access to naloxone should? these effects occur. I advised the patient to avoid the use of any other? sedation substances including alcohol, THC, and benzodiazepines while? taking opioid medications due to the risk of compounding side effects and? detrimental outcomes. I reviewed the [employer], pain treatment agreement, urine? drug screen, and opioid start talking forms. The patient was advised to let? their family know they had Naloxone in case they would need to administer? the medication.? ?? A drug screen was completed within the last year, and no aberrancies were noted regarding their use of controlled substances. The patient understands they are subject to the terms and conditions of the pain contract that they have signed. ? ?? I have checked an [place] report on this patient today and there are no aberrancies noted in the prescribing history.? The patient was advised that U.[place]. Food and Drug Administration (FDA) is warning that respiratory depression may occur in patients using gabapentin (Neurontin, Gralise, Horizant) or pregabalin (Lyrica, Lyrica CR) who have respiratory risk factors. These include the use of opioid pain medicines and other drugs that depress the central nervous system, and conditions such as chronic obstructive pulmonary disease (COPD) that reduce lung function. The elderly are also at higher risk.? (5) Muscle spasm: (6) Cervical spondylosis: (7) Obesity: Assessment and Plan: The patient was counseled that proper dietary changes and consistent participation in a home exercise plan can lead to weight loss. Weight loss can help to improve functionality in patients with chronic pain.? Plan lumbar xray with flexion extension ordered and reviewed, with 30% anterior wedge compression fracture and lumbar spondylolisthesis wit DDD and lumbar facet arthropathy I would recommend an MRI of lumbar spine without contrast with 10mg PO valium prior to procedure due to anxiety. This is essential as patient has failed to benefit from greater than 6 weeks of HEP, conservative medications, and is needed to evaluate further injection therapy vs surgical referral stop baclofen start robaxin 75mg HS PRN myofascial pain/muscle spasms continue percocet 5-235mg once daily PRN moderate to severe pain update UDS today f/u after lumbar MRI
== END 2023-05-22 11:12 | disposition home or self-care (01) ==
PROVIDERS: PCP Internal Medicine; Visit Provider Nurse Practitioner
DX: M47.816 Spondylosis without myelopathy or radiculopathy, lumbar region (principal); M48.062 Spinal stenosis, lumbar region with neurogenic claudication; M48.56XA Collapsed vertebra, not elsewhere classified, lumbar region, initial encounter for fracture; Z79.899 Other long term (current) drug therapy; M62.838 Other muscle spasm; M47.812 Spondylosis without myelopathy or radiculopathy, cervical region; E66.9 Obesity, unspecified
CPT/HCPCS: G0463

== ENCOUNTER 2023-05-22 12:02 | Outpatient (OUT) | payer OTHER, MEDICARE, SELFPAY ==
--- NOTE | 2023-05-22 12:25 | XR_ITS ---
[address] [address] Patient Name: KARINA DE OLIVEIRA MRN: [id number] date: 1965 Sex: F Assigned Patient Location: [facility] Current Patient Location: [facility] Accession/Order Number: [id number] Exam Date: 05/22/2023 12:18 Report Date: 05/22/2023 15:48 At the request of: JAMES BLANCO Procedure: XR lumbar spine 6V w bending EXAMINATION: XR lumbar spine 6V w bending HISTORY: lumbar stenosis COMPARISON: 06/07/2022 FINDINGS: BONES: Stable 30% anterior wedge compression fracture of L1. Multilevel grade 1 retrolisthesis of L1-L2 and L3. 5 mm anterolisthesis of L5. Moderate degenerative spondylosis and facet osteoarthropathy DISC SPACES: Multilevel disc space narrowing with endplate sclerosis and vacuum disks PARASPINOUS: Negative. No paraspinous abnormality is seen. OTHER: Vascular calcifications XR/XR lumbar spine 6V w bending IMPRESSION: Moderate diffuse degenerative changes Electronically authenticated by: RYAN GOLDMAN Date: 05/22/2023 15:48
== END 2023-05-22 12:03 | disposition home or self-care (01) ==
LOC: RAD 12:05
PROVIDERS: PCP Internal Medicine; Visit Provider Nurse Practitioner
DX: M48.062 Spinal stenosis, lumbar region with neurogenic claudication (principal); M47.816 Spondylosis without myelopathy or radiculopathy, lumbar region; M51.36 Other intervertebral disc degeneration, lumbar region; M48.56XA Collapsed vertebra, not elsewhere classified, lumbar region, initial encounter for fracture; Z79.899 Other long term (current) drug therapy; M62.838 Other muscle spasm; M47.812 Spondylosis without myelopathy or radiculopathy, cervical region; E66.9 Obesity, unspecified
CPT/HCPCS: 72114; G0463

== ENCOUNTER 2023-06-06 12:12 | Outpatient (OUT) | payer OTHER, MEDICARE, SELFPAY ==
--- NOTE | 2023-06-06 12:17 | MR_ITS ---
[address] [address] Patient Name: KARINA DE OLIVEIRA MRN: [id number] date: 1965 Sex: F Assigned Patient Location: MRI Current Patient Location: MRI Accession/Order Number: [id number] Exam Date: 06/06/2023 12:30 Report Date: 06/06/2023 16:49 At the request of: JAMES BLANCO Procedure: MR lumbar spine wo con MRI LUMBAR SPINE WITHOUT CONTRAST, 06/06/2023. HISTORY: Low back pain. Pain in legs. COMPARISON: None. TECHNIQUE: Multiplanar, multisequence MRI imaging of the lumbar spine without contrast. FINDINGS: Mild chronic compression fracture at L1. Grade 1 retrolisthesis at L1-L2 measures 3 mm. Grade 1 retrolisthesis at L2-L3 measures 3 mm. There is grade 1 anterolisthesis at L5-S1 measuring 8 mm. Signal in the bone marrow spaces is normal. No bone marrow edema. No suspicious osseous lesions. L5-S1, severe facet arthropathy. Grade 1 spondylolisthesis measures 8 mm. Moderate to severe degenerative disc disease. No spinal canal stenosis. Spondylolisthesis, facet hypertrophy, disc space narrowing and osteophytes result in severe left foraminal narrowing. Mild right foraminal narrowing. L4-L5, moderate to severe degenerative disc disease. No spinal canal stenosis. No significant foraminal narrowing. L3-L4, moderate degenerative disc disease. No spinal canal stenosis. Mild right foraminal narrowing. No foraminal narrowing on the left. L2-L3, severe degenerative disc disease. There is severe disc space narrowing and diffuse irregularity of the endplates. Reactive degenerative endplate signal changes are noted. Grade 1 retrolisthesis. There is moderate spinal canal stenosis. Mild foraminal narrowing bilaterally. L1-L2, severe degenerative disc disease. Grade 1 retrolisthesis. No spinal canal stenosis. No foraminal narrowing. No abnormal signal in the conus medullaris. No paraspinal mass. MR/MR lumbar spine wo con IMPRESSION: 1. Advanced degenerative disc disease at L2-L3 with severe loss of disc space height, diffuse irregularity of the endplates as well as reactive degenerative endplate signal changes. Grade 1 retrolisthesis. There is moderate spinal canal stenosis and mild bilateral foraminal narrowing. 2. Severe degenerative disc disease at L1-L2. There is grade 1 retrolisthesis at this level. No spinal stenosis or foraminal narrowing. 3. Severe facet arthropathy at L5-S1. There is grade 1 spondylolisthesis. No spinal canal stenosis. Severe left foraminal narrowing. Mild right foraminal narrowing. Electronically authenticated by: CHRIS GOLDSMITH Date: 06/06/2023 16:49
--- OUTSIDE RECORDS SUMMARY | 2023-06-06 12:24 | XMS_ITS | CCD ---
Author Organization [facility] Care Team Providers Care Software Implementation Project Manager Name Role Phone House DO, Sr Jonathan Klein Primary Care Provider [phone] NIKKIE BARCLAY Referring Unavailabl e HOUSE, SR [...] ., NARENDRANATH Admitting Nellie vailable LAKSHMIPATHY ., NARCAMRYNATH Attending Nellie vailable PIERCE ., CRYS Consulting [...] Attending Unavailable HOUSE, DR BASURTO Consulting Unavailable KAREN, SUSSY Dos Santos Admitting Unavailable KAREN, SUSSY Dos Santos Attending Unavailable [place], DR BASURTO Primary Care Unavailable GAETANO, DR PATTIE Nieves Consulting Unavailable [facility] SUSSY Dos Santos Consulting Unavailable HOUSE, DR BASURTO Attending Unavailable HOUSE, DR BASURTO Primary Care Unavailable HOUSE, DR BASURTO Admitting Unavailable HOUSE, DR BASURTO Consulting Unavailable HOUSE, DR BASURTO Primary Care Unavailable GAETANO, DR PATTIE Nieves Consulting Unavailable LAKSHMIPATHY ., NARENDRANATH Admitting Nellie vailable LAKSHMIPATHY ., NARCAMRYNATH Attending Nellie vailable LAKSHMIPATHY ., BILLY Consulting Nellie vailable HOUSE, DR BASURTO Admitting Unavailable [place], DR BASURTO Attending Unavailable [place], DR BASURTO Primary Care Unavailable POWER, DR RYAN Guzman Consulting Unavailable HOUSE, DR JONATHAN Trimble Unavailable HOLM ., DR RICARDO Belcher Admitting Unavailable HOUSE, DR BASURTO Primary Care Unavailable HLOM ., DR RICARDO Belcher Attending Unavailable HOLM ., DR RICARDO Belcher Consulting Unavailable HOLM ., DR RICARDO Belcher Admitting Unavailable HOUSE, DR BASURTO Primary Care Unavailable HOLM ., DR RICARDO Belcher Attending Unavailable HOLM ., DR RICARDO Belcher Consulting Unavailable PIERCE ., CRYS Trimble Unavailable PIERCE ., CRYS Trimble Unavailable [place], DR BASURTO Primary Care Unavailable HOLM ., DR RICARDO Belcher Admitting Unavailable HOLM ., DR RICARDO Belcher Attending Unavailable LAKSHMIPATHY ., BILLY Consulting Nellie vailable HOUSE, DR BASURTO Primary Care Unavailable HOLM ., DR RICARDO Belcher Admitting Unavailable HOLM ., DR RICARDO Belcher Attending Unavailable PIRECE ., CRYS Consulting Unavailable Elle Hendricks Unavailable Shaikh Connelly MD Primary Care Provider ELIDA GARCIA Attending Unavailable SHAIKH CONNELLY Attending Unavailable SHAIKH CONNELLY Attending Unavailable Medications Current Medications Medication Drug Class(es) Dates Sig (Normalized) Sig (Original) acetaminophen 325 mg / oxyCODONE hydrochloride 10 mg oral tablet (7 sources) Opioid Agonist Start: 01-12-2017 Oxycodone-Acetamin ophen (Percocet) 10-325 mg Tablet Active 1 TAB PO January 12, 2017 1:00am take 1 tablet by mouth every six hours Percocet 10-325 MG 1 tablet as needed Orally every 6 hrs Active take 1 tablet by mouth once as n eeded oxyCODONE-acetaminophen (PERCOCET) 10-325 MG per tablet Percocet 10 mg-325 mg tablet Take 1 tablet as needed by oral route. 0 Active alendronic acid 70 mg oral tablet (8 sources) Bisphosphonate Start: 08-17-2021 take 1 tablet by mouth once alendronate (FOSAMAX) 70 MG tablet TAKE 1 TABLET BY MOUTH EVERY SATURDAY 0 08/17/2021 Active Start: 01-12-2017 End: 01-15-2017 take 1 tablet by mouth every week Alendronate (Fosamax) 70 mg Tablet Discontinued 70 MG PO every week January 12, 2017 1:00am January 15, 2017 2:22pm take 1 tablet by alonso th in the morning alendronate (Fosamax) 70 MG tablet Take 70 mg by mouth every 7 (seven) days Take in the morning with a full glass of water, on an empty stomach, and do not take anything else by mouth or lie down for the next 30 min. 0 Active allopurinol 300 mg oral tablet (7 sources) Xanthine Oxidase Inhibitor take 1 tablet by mouth every twenty-four hours Allopurinol 300 MG 1 tablet Orally Once a day Active ALLOPURINOL PO T karolyn by mouth 0 Active Aspir-81 81 MG (5 sources) take 1 tablet by mouth once daily Aspir-81 81 MG 1 tablet Orally Once a day Active aspirin 81 mg delayed release oral tablet (2 sources) Platelet Aggregation Inhibitor, Nonsteroidal Anti-inflammatory Drug Start: 017 Aspirin (Kumar Low Dose Aspirin) 81 mg Tablet,Delayed Release (Dr/Ec) Active 81 MG PO Bedtime January 12, 2017 1:00am baclofen 10 mg oral tablet (1 source) gamma-Aminobutyric Acid-ergic Agonist take 1 tablet by mouth at bedtime baclofen (Lioresal) 10 MG tablet Take 10 mg by mouth at bedtime 0 Active chlorhexidine gluconate 40 mg/ml medicated liquid soap (1 source) Start: 024 chlorhexidine (Hibiclens) 4 % external liquid Indications: Hidradenitis suppurativa Lather onto affected areas on the body and rinse from the neck down, avoiding the face, 30 day supply 118 mL 11 02/25/2023 Active cholecalciferol 0.025 mg oral capsule (1 source) Vitamin D take 1 capsule by mouth in the morning cholecalciferol (Vitamin D-3) 25 MCG (1000 UT) capsule Take 1,000 Units by mouth in the morning. 0 Active clindamycin 10 mg/ml topical lotion (1 source) Lincosamide Antibacterial Start: clindamycin (Cleocin T) 1 % lotion Indications: Hidradenitis suppurativa Apply thin later to affected areas on the body every day during flares, 30 day supply 60 mL 11 02/25/2023 Active colchicine 0.6 mg oral tablet (6 sources) Start: colchicine 0.6 MG tablet Indications: Gout, unspecified cause, unspecified chronicity, unspecified site TAKE 2 TABLETS BY MOUTH AT ONSET OF ACUTE GOUT, MAY TAKE 1 TABLET IN HOUR. NO MORE THAN 3 TABLETS IN ONE DAY 30 tablet 0 03/06/2023 Active Start: 05-02-2022 take 1 tablet by alonso th every twenty-four hours Colchicine 0.6 MG 1 tablet Orally once daily for 30 days Apr, Active diclofenac sodium 75 mg delayed release oral tablet (7 sources) Nonsteroidal Anti-inflammatory Drug Start: 08-07-2021 take 1 tablet by mouth twice daily diclofenac (VOLTAREN) 75 MG EC tablet TAKE 1 TABLET BY MOUTH TWICE DAILY 0 08/07/2021 Active Voltaren Active eletriptan 40 mg oral tablet (7 sources) Serotonin-1b and Serotonin-1d Receptor Agonist Start: 01-12-2017 Eletriptan (Relpax) 40 mg Tablet Active 40 MG PO January 12, 2017 1:00am take 1 tablet by alonso th every twenty-four hours Relpax 40 MG 1 tablet as needed one time Orally Once a day Active famotidine 20 mg oral tablet (2 sources) Histamine-2 Receptor Antagonist Start: 08-16-2021 take 1 tablet by mouth once daily famotidine (PEPCID) 20 MG tablet TAKE 1 TABLET BY MOUTH EVERY DAY 0 08/16/2021 Active glimepiride 1 mg oral tablet (2 sources) Sulfonylurea Start: 06-05-2021 take 0.5 tablet by mouth once daily in the morning glimepiride (AMARYL) 1 MG tablet TAKE 1/2 TABLET BY MOUTH EVERY MORNING 0 06/05/2021 Active hydroCHLOROthiazide 25 mg oral tablet (3 sources) Thiazide Diuretic Start: 08-16-2021 take 1 tablet by mouth once daily hydroCHLOROthiazide (HYDRODIURIL) 25 MG tablet TAKE 1 TABLET BY MOUTH EVERY DAY 0 08/16/2021 Active Start: 01-12-2017 End: 01-15-2017 take 25 mg by mouth once daily Hydrochlorothiazide Discontinued 25 MG PO Daily January 12, 2017 1:00am January 15, 2017 2:23pm lansoprazole 30 mg delayed release oral capsule (1 source) Proton Pump Inhibitor Start: 01-12-2017 take 30 mg by mouth once daily Lansoprazole Active 30 MG PO Daily January 12, 2017 1:00am metFORMIN hydrochloride 500 mg oral tablet (8 sources) Biguanide Start: 08-07-2021 metFORMIN (GLUCOPHAGE) 500 MG tablet 1,000 mg in the morning and 1,000 mg in the evening. Take with meals. 0 08/07/2021 Active Start: 01-12-2017 take 500 mg by mouth twice odessa ly Metformin Active 500 MG PO Twice daily January 12, 2017 1:00am take 1 tablet by alonso th at mealtime, then take 1 tablet by mouth every twenty-four hours metFORMIN, OSM, (Fortamet) 1000 MG 24 hr tablet Take 1,000 mg by mouth in the evening. Take with meals Do not crush, chew, or split. 0 Active methocarbamol 750 mg oral tablet (2 sources) Muscle Relaxant Start: 08-15-2021 take 1 tablet by mouth once daily at bedtime methocarbamol (ROBAXIN) 750 MG tablet TAKE 1 TABLET BY MOUTH EVERY NIGHT AT BEDTIME 0 08/15/2021 Active Start: 01-12-2017 End: 01-15-2017 take 1 tablet by mouth at bedtime Methocarbamol (Robaxin-750) 750 mg Tablet Discontinued 750 MG PO Bedtime January 12, 2017 1:00am January 15, 2017 2:23pm methylPREDNISolone 4 mg oral tablet (1 source) Corticosteroid Medrol 4 MG as directed Orally As Directed for 6 days Active Multivitamins (5 sources) Multivitamins Or ally Active Osteo Bi-Flex Adv Double St (5 sources) Osteo Bi-Flex Ad v Double St Orally Active Ozempic (0.25 or 0.5 MG/DOSE) (3 sources) Ozempic (0.25 or 0.5 MG/DOSE) Active pregabalin 75 mg oral capsule (10 sources) Start: 03-21-19 End: 06-19-19 take 1 capsule by mouth in the morning, then take 1 capsule by mouth in the evening, then take 1 capsule by mouth at bedtime pregabalin (Lyrica) 75 MG capsule Indications: Diabetic polyneuropathy associated with type 2 diabetes mellitus (CMS/HCC) Take 1 capsule (75 mg) by mouth in the morning and 1 capsule (75 mg) in the evening and 1 capsule (75 mg) before bedtime. 270 capsule 0 03/21/2023 06/19/2023 Active Start: 01-12-2017 take 50 mg by mouth once daily Pregabalin Active 50 MG PO Daily January 12, 2017 1:00am Start: 01-12-2017 take 100 mg by mouth at bedtim e Pregabalin Active 100 MG PO Bedtime January 12, 2017 1:00am End: 03-21-2023 take 1 capsule by mouth every eight hours Lyrica 50 MG 1 capsule Orally Three times a day Active take 1 capsule by mo uth twice daily pregabalin (LYRICA) 50 MG capsule Lyrica 50 mg capsule Take 1 capsule twice a day by oral route. 0 Active Probiotic (5 sources) Probiotic Active raNITIdine 150 mg oral tablet (5 sources) Histamine-2 Receptor Antagonist take 1 tablet by mouth twice daily Ranitidine HCl 150 MG 1 Tablet Orally bid Active Robaxin-750 750 MG (5 sources) take 1 tablet by mouth every four hours Robaxin-750 750 MG 1 tablet Orally every 4 hrs Active rosuvastatin calcium 20 mg oral tablet (3 sources) HMG-CoA Reductase Inhibitor take 1 tablet by mouth every twenty-four hours Crestor 20 MG 1 tablet Orally Once a day Active semaglutide (Ozempic, 1 MG/DOSE,) 4 MG/3ML solution pen-injector (1 source) Start: 01-30-20 23 End: 04-29-19 24 inject 1 mg by subcutaneous injection every week semaglutide (Ozempic, 1 MG/DOSE,) 4 MG/3ML solution pen-injector Indications: Type 2 diabetes mellitus without complication, without long-term current use of insulin (CMS/HCC) Inject 1 mg under the skin 1 (one) time per week 9 mL 0 01/29/2023 04/29/2023 Active traZODone hydrochloride 50 mg oral tablet (1 source) Serotonin Reuptake Inhibitor Start: 08-18-19 22 take 1 tablet by mouth once daily at bedtime traZODone (DESYREL) 50 MG tablet TAKE 1 TABLET BY MOUTH EVERY NIGHT AT BEDTIME 0 08/17/2021 Active 24 hr divalproex sodium 500 mg extended release oral tablet (8 sources) Mood Stabilizer, Anti-epileptic Agent Start: 01-13-20 17 take 1 tablet by mouth twice daily Divalproex (Depakote Er) 500 mg Tablet Extended Release 24 Hr Active 500 MG PO Twice daily January 12, 2017 1:00am take 1 tablet by mouth every twe lve hours Depakote 500 mg 1 tablet Orally twice a day Active Vitamin C 500 MG (2 sources) Vitamin C 500 MG Orally Active Completed/Discontinued Medications Medication Drug Class(es) Dates Sig (Normalized) Sig (Original) ascorbic acid 100 mg oral tablet (5 sources) Vitamin C Start: 01-12-2017 End: 01-15-2017 take 5 tablets by mouth once daily Ascorbic Acid (Vitamin C) (Vitamin C) 100 mg Tablet Discontinued 500 MG PO Daily January 12, 2017 1:00am January 15, 2017 2:22pm Vitamin C 500 MG Orally Active take 1 tablet by mouth once sariah y ascorbic acid (VITAMIN C) 500 MG tablet Vitamin C 500 mg tablet Take 1 tablet every day by oral route. 0 Active indomethacin 50 mg oral capsule (1 source) Nonsteroidal Anti-inflammatory Drug Start: 01-12-2017 End: 01-15-2017 take 50 mg by mouth twice daily Indomethacin Discontinued 50 MG PO Twice daily January 12, 2017 1:00am January 15, 2017 2:23pm lactobacillus acidophilus 1.5 mg oral capsule (1 source) Start: 01-12-2017 End: 01-15-2017 Lactobacillus Acidophilus (Probiotic Acidophilus) 1.5 mg (250 million cell) Capsule Discontinued PO Daily January 12, 2017 1:00am January 15, 2017 2:23pm Oxoqmosizobf-Lm-Fca n-Minerals (Multiple Vitamin, Womens) Tablet (1 source) Start: 01-12-2017 End: 01-15-2017 Ntbjuflsmppx-Jx-Ez on-Minerals (Multiple Vitamin, Womens) Tablet Discontinued PO Daily January 12, 2017 1:00am January 15, 2017 2:23pm triamcinolone acetonide 40 mg/ml injectable suspension (3 sources) Corticosteroid Start: 03-19-2023 Kenalog-40 Mar, 20 mg Start: 01-23-2023 Kenalog-40 Jan, 30 mg Problems Active Problems Problem Classification Problem Date Documented Date Episodic/Chronic Acute and unspecified renal failure (1 source) Acute renal failure syndrome; Translations: [Acute kidney failure, unspecified] 01-23-2023 Episodic Diabetes mellitus with complications (1 source) Polyneuropathy due to type 2 diabetes mellitus; Translations: [Type 2 diabetes mellitus with diabetic polyneuropathy] 03-21-2023 Chronic Diabetes mellitus without complication (7 sources) Type 2 diabetes mellitus without complications; Translations: [Type 2 diabetes mellitus without complication] Onset: 07-05-2021 Chronic Essential hypertension (2 sources) Essential (primary) hypertension; Translations: [Hypertensive disorder] Onset: 04-16-2022 01-13-2017 Chronic Gout and other crystal arthropathies (11 sources) Gout; Translations: [Gout, unspecified] Chronic Osteoarthritis (7 sources) Bilateral primary osteoarthritis of knee; Translations: [Arthritis of first carpometacarpal joint of left hand] Onset: 03-08-2022 Chronic Other connective tissue disease (2 sources) Pain in left hand Episodic Other connective tissue disease (1 source) Personal history of other diseases of the musculoskeletal system and connective tissue Episodic Other hereditary and degenerative nervous system conditions (1 source) Restless legs; Translations: [Restless legs syndrome] 01-23-2023 Chronic Other nervous system disorders (1 source) Other chronic pain; Translations: [OTHER CHRONIC PAIN] Onset: 06-08-2022 Chronic Other nervous system disorders (1 source) Numbness of face; Translations: [Anesthesia of skin] 01-23-2023 Episodic Other non-epithelial cancer of skin (1 source) Basal cell carcinoma of nose; Translations: [Basal cell carcinoma of skin of nose] Onset: 01-29-2023 01-29-2023 Episodic Other non-traumatic joint disorders (4 sources) Pain in right wrist Episodic Other nutritional; endocrine; and metabolic disorders (6 sources) Hypercalcemia; Translations: [Hypercalcemia] 01-23-2023 Chronic Other screening for suspected conditions (not mental disorders or infectious disease) (3 sources) Patient encounter status; Translations: [Encounter for screening for malignant neoplasm of cervix] Onset: 01-29-2023 Episodic Other upper respiratory infections (1 source) Acute upper respiratory infection; Translations: [Acute upper respiratory infection, unspecified] Onset: 01-29-2023 01-29-2023 Episodic Spondylosis; intervertebral disc disorders; other back [...] PATTIE SALTER Date: 2022-06-07 11:15 Normal [facility] CBC AUTO DIFFon 04-12-2022 BASO # 0.1 103/ul Normal 0.0-0.1 [facility] Comment on above: Performed By: #### C BC ####[facility] [address] [place] [address]DrPasquale Valenzuela Basophils/100 WBC (Bld) 0.5 % Normal 0.2-2.0 [facility] Comment on above: Performed By: #### C BC ####[facility] [address] [place], [place] [address]DrPasquale Valenzuela EO # 0.3 103/ul Normal 0.0-0.7 [facility] Comment on above: Performed By: #### C BC ####[facility] [address] [place], [place] [address]DrPasquale Valenzuela Eosinophils/100 WBC (Bld) 3.0 % Normal 0.9-7.0 [facility] Comment on above: Performed By: #### C BC ####[facility] [address] [place], [place] [address]DrPasquale Valenzuela Erythrocyte distribution width (RBC) [Ratio] 14.8 % Normal 11.0-15.0 [facility] Comment on above: Performed By: #### C BC ####[facility] [address] [place], [place] [address]DrPasquale Valenzuela Hematocrit (Bld) [Volume fraction] 40.6 % Normal 36.0-48.0 [facility] Comment on above: Performed By: #### C BC ####[facility] [address] [place], [place] [address]DrPasquale Valenzuela Hemoglobin (Bld) [Mass/Vol] 13.5 g/dL Normal 12.0-16.0 [facility] Comment on above: Performed By: #### C BC ####[facility] [address] [place], [place] [address]DrPasquale Suttonsharron Nicolas IG # 0.16 10e3/ul Critically high 0.00-0.03 [facility] Comment on above: Performed By: #### C BC ####[facility] [address] [place] [address]DrPasquale Ricky Nicolas IG % 1.4 % Critically high 0.0-0.5 [facility] Comment on above: Performed By: #### C BC ####[facility] [address] [place] [address]DrPasquale Suttonsharron Nicolas LYMPH # 3.4 103/ul Normal 1.2-3.8 [facility] Comment on above: Performed By: #### C BC ####[facility] [address] [place] [address]DrPasquale Valenzuela Lymphocytes/100 WBC (Bld) 30.4 % Normal 20.5-60.0 [facility] Comment on above: Performed By: #### C BC ####[facility] [address] [place], [place] [address]DrPasquale Valenzuela MANUAL DIFF REQ NO Normal [facility] Comment on above: Performed By: #### C BC ####[facility] [address] [place], [place] [address]DrPasquale Ricky Nicolas MCH (RBC) [Entitic mass] 31.8 pg Normal 26.7-34.0 [facility] Comment on above: Performed By: #### C BC ####[facility] [address] [place], [place] [address]DrPasquale Suttonsharron Nicolas MCHC (RBC) [Mass/Vol] 33.3 g/dL Normal 29.9-35.2 [facility] Comment on above: Performed By: #### C BC ####[facility] [address] [place], [place] [address]DrPasquale Valenzuela MCV (RBC) [Entitic vol] 95.5 fL Normal 81.0-99.0 [facility] Comment on above: Performed By: #### C BC ####[facility] [address] [place], [place] [address]DrPasquale Valenzuela MONO # 0.9 103/ul Critically high 0.3-0.8 [facility] Comment on above: Performed By: #### C BC ####[facility] [address] [place] [id number]. Ricky Valenzuela Monocytes/100 WBC (Bld) 7.7 % Normal 1.7-12.0 [facility] Comment on above: Performed By: #### C BC ####[facility] [address] [place] [id number]. Ricky Valenzuela NEUT # 6.3 103/ul Normal 1.4-6.5 [facility] Comment on above: Performed By: #### C BC ####[facility] [address] [place] [phone]. Ricky Valenzuela Neutrophils/100 WBC (Bld) 57.0 % Normal 43.0-75.0 [facility] Comment on above: Performed By: #### C BC ####[facility] [address] [place], [place] [address]Dr. Ricky Valenzuela Platelet mean volume (Bld) [Entitic vol] 9.8 fL Normal 9.5-13.5 [facility] Comment on above: Performed By: #### C BC ####[facility] [address] [place] [phone]. Ricky Valenzuela PLT 246 103/ul Normal 150-450 [facility] Comment on above: Performed By: #### C BC ####[facility] [address] [place] [phone]. Ricky Valenzuela RBC 4.25 106/ul Normal 4.20-5.40 [facility] Comment on above: Performed By: #### C BC ####[facility] [address] [place] [phone]. Ricky Valenzuela WBC 11.1 103/ul Critically high 4.0-11.0 [facility] Comment on above: Performed By: #### C BC ####[facility] [address] [place], [place] [address]Dr. Ricky Valenzuela GLYCOHEMOGLOBIN A1Con 2022 ADA RECOMMENDATION SEE BELOW Normal [facility] Comment on above: Result Comment: ADA RECOMMENDED LIMIT 4.0 - 6.0 ADA THERAPEUTIC TARGET < 7.0 ACTION SUGGESTED > 7.0 Performed By: #### A 1C ####[facility] [address] [place] [address]Dr. Ricky Valenzuela Glucose [Mass/Vol] 160 mg/dL Normal [facility] Comment on above: Performed By: #### A 1C ####[facility] [address] [place] [address]Dr. Ricky Valenzuela HbA1c (Bld) [Mass fraction] 7.2 % Critically high 4.5-6.2 [facility] Comment on above: Performed By: #### A 1C ####[facility] [address] [place] [address]DrPasquale Valenzuela MICROALBUMIN, RAND URon mALB <1.3 Normal <=30.0 [facility] Comment on above: Performed By: #### M ALBR #### [facility] [address] [place] [address] [address] Ricky Valenzuela PROF 14(COMP METB)on 023 Albumin [Mass/Vol] 3.3 g/dL Critically low 3.4-5.0 [facility] Comment on above: Performed By: #### C MP #### [facility] [address] [place] [address] [address] Ricky Valenzuela Albumin/Globulin [Mass ratio] 0.9 {ratio} Normal [facility] Comment on above: Performed By: #### C MP #### [facility] [address] [place] [address] [address] Ricky Valenzuela ALP [Catalytic activity/Vol] 90 U/L Normal 46-116 [facility] Comment on above: Performed By: #### C MP #### [facility] [address] [place] [address] [address] Ricky Valenzuela ALT [Catalytic activity/Vol] 42 U/L Normal 14-59 [facility] Comment on above: Performed By: #### C MP #### [facility] [address] [place] [address] [address] Ricky Valenzuela Anion gap [Moles/Vol] 10.1 mmol/L Normal Th [facility] Comment on above: Performed By: #### C MP #### [facility] [address] [address] [address] Ricky Valenzuela AST [Catalytic activity/Vol] 21 U/L Normal 15-37 [facility] Comment on above: Performed By: #### C MP #### [facility] [address] [address] [address] Ricky Valenzuela Bilirubin [Mass/Vol] 0.3 mg/dL Normal 0.2-1.0 [facility] Comment on above: Performed By: #### C MP #### [facility] [address] [address] [address] Ricky Valenzuela Calcium [Mass/Vol] 9.8 mg/dL Normal 8.5-10.1 [facility] Comment on above: Performed By: #### C MP #### [facility] [address] [address] [address] Ricky Valenzuela Chloride [Moles/Vol] 99 mmol/L Normal 98-107 [facility] Comment on above: Performed By: #### C MP #### [facility] [address] [address] [address] Ricky Valenzuela CO2 [Moles/Vol] 33.7 mmol/L Critically high 21.0-32.0 [facility] Comment on above: Performed By: #### C MP #### [facility] [address] [address] [address] Ricky Valenzuela Creatinine [Mass/Vol] 0.94 mg/dL Normal 0.55-1.02 [facility] Comment on above: Performed By: #### C MP #### [facility] [address] [address] [address] Ricky Valenzuela EGFR-AF RWANDAN >60 Normal >=60 [facility] Comment on above: Performed By: #### C MP #### [facility] [address] [place] [address] [address] Ricky Valenzuela EGFR-NON AF RWANDAN >60 Normal >=60 [facility] Comment on above: Performed By: #### C MP #### [facility] [address] [place] [address] Dr. Ricky Valenzuela Globulin (S) [Mass/Vol] 3.8 g/dL Normal [facility] Comment on above: Performed By: #### C MP #### [facility] [address] [place] [address] Dr. Ricky Valenzuela Glucose [Mass/Vol] 168 mg/dL Critically high 74-[address] [facility] Comment on above: Performed By: #### C MP #### [facility] [address] [place] [address] Dr. Ricky Valenzuela Potassium [Moles/Vol] 4.8 mmol/L Normal 3.5-5.1 [facility] Comment on above: Performed By: #### C MP #### [facility] [address] [place] [address] Dr. Ricky Valenzuela Protein [Mass/Vol] 7.1 g/dL Normal 6.4-8.2 [facility] Comment on above: Performed By: #### C MP #### [facility] [address] [place] [address] Dr. Ricky Valenzuela Sodium [Moles/Vol] 138 mmol/L Normal 136-145 [facility] Comment on above: Performed By: #### C MP #### [facility] [address] [place] [address] Dr. Ricky Valenzuela Urea nitrogen [Mass/Vol] 22.0 mg/dL Critically high 7.0-18.0 [facility] Comment on above: Performed By: #### C MP #### [facility] [address] [place] [address] Dr. Ricky Valenzuela Urea nitrogen/Creatinine [Mass ratio] 23.4 mg/mg Normal [facility] Comment on above: Performed By: #### C MP #### [facility] [address] [place] [address] Dr. Ricky Valenzuela Cytologyon 07-20-2022 Cytology (NOTE) INTERPRETATION Vaginal material, (ThinPrep vial, Imaging-assisted review): Specimen Adequacy: Satisfactory for evaluation. Descriptive Diagnosis: Negative for intraepithelial lesion or malignancy. Cheese Supervisor: CLARK Delacruz(ASCP) Electronically Signed Out ss/09/07/2021 Source: A: Vaginal material, (ThinPrep vial, Imaging-assisted review) Clinical History Hysterectomy Surgery: Salpingostomy; Ovary removal Z12.4 Encounter for screening for malignant neoplasm of cervix GYNECOLOGIC CYTOLOGY REPORT Patient Name: KARINA DE OLIVEIRA [facility] Rec: [id number] Path Number: [id number] [facility] ANATOMIC PATHOLOGY [address] [place] [id number] Normal [facility] Comment on above: Performed By: #### P PPVP #### [address] [id number] Yard Switch Operator: Luca Cummins MD CBC AUTO DIFFon 08-09-2021 BASO # 0.1 103/ul Normal 0.0-0.1 [facility] Comment on above: Performed By: #### C BC #### [facility] [address] [place] [address] Dr. Ricky Valenzuela Basophils/100 WBC (Bld) 0.8 % Normal 0.2-2.0 [facility] Comment on above: Performed By: #### C BC #### [facility] [address] [place] [address] Dr. Ricky Valnezuela EO # 0.2 103/ul Normal 0.0-0.7 [facility] Comment on above: Performed By: #### C BC #### [facility] [address] [address] [address] Ricky Valenzuela Eosinophils/100 WBC (Bld) 2.1 % Normal 0.9-7.0 [facility] Comment on above: Performed By: #### C BC #### [facility] [address] [place] [address] Dr. Ricky Valenzuela Erythrocyte distribution width (RBC) [Ratio] 15.2 % Critically high 11.0-15.0 [facility] Comment on above: Performed By: #### C BC #### [facility] [address] [place] [address] Dr. Ricky Valenzuela Hematocrit (Bld) [Volume fraction] 41.5 % Normal 36.0-48.0 [facility] Comment on above: Performed By: #### C BC #### [facility] [address] [place] [address] Dr. Ricky Valenzuela Hemoglobin (Bld) [Mass/Vol] 13.5 g/dL Normal 12.0-16.0 [facility] Comment on above: Performed By: #### C BC #### [facility] [address] [place] [address] Dr. Ricky Valenzuela IG # 0.42 10e3/ul Critically high 0.00-0.03 [facility] Comment on above: Performed By: #### C BC #### [facility] [address] [place] [address] Dr. Ricky Valenzuela IG % 3.8 % Critically high 0.0-0.5 [facility] Comment on above: Performed By: #### C BC #### [facility] [address] [place] [address] Dr. Ricky Valeznuela LYMPH # 3.3 103/ul Normal 1.2-3.8 [facility] Comment on above: Performed By: #### C BC #### [facility] [address] [place] [address] Dr. Ricky Valenzuela Lymphocytes/100 WBC (Bld) 29.1 % Normal 20.5-60.0 [facility] Comment on above: Performed By: #### C BC #### [facility] [address] [place] [address] Dr. Ricky Valenzuela MANUAL DIFF REQ NO Normal [facility] Comment on above: Performed By: #### C BC #### [facility] [address] [place] [address] Dr. Ricky Valenzuela MCH (RBC) [Entitic mass] 32.4 pg Normal 26.7-34.0 [facility] Comment on above: Performed By: #### C BC #### [facility] [address] [address] [address] Ricky Valenzuela MCHC (RBC) [Mass/Vol] 32.5 g/dL Normal 29.9-35.2 [facility] Comment on above: Performed By: #### C BC #### [facility] [address] [address] [address] Ricky Valenzuela MCV (RBC) [Entitic vol] 99.5 fL Critically high 81.0-99.0 [facility] Comment on above: Performed By: #### C BC #### [facility] [address] [address] [address] Ricky Valenzuela MONO # 0.8 103/ul Normal 0.3-0.8 [facility] Comment on above: Performed By: #### C BC #### [facility] [address] [place] [address] Dr. Ricky Valenzuela Monocytes/100 WBC (Bld) 7.5 % Normal 1.7-12.0 [facility] Comment on above: Performed By: #### C BC #### [facility] [address] [place] [address] Dr. Ricky Valenzuela NEUT # 6.3 103/ul Normal 1.4-6.5 [facility] Comment on above: Performed By: #### C BC #### [facility] [address] [place] [address] Dr. Ricky Valenzuela Neutrophils/100 WBC (Bld) 56.7 % Normal 43.0-75.0 [facility] Comment on above: Performed By: #### C BC #### [facility] [address] [address] [address] Ricky Valenzuela Platelet mean volume (Bld) [Entitic vol] 9.8 fL Normal 9.5-13.5 [facility] Comment on above: Performed By: #### C BC #### [facility] [address] [address] [address] Ricky Valenzuela PLT 265 103/ul Normal 150-450 [facility] Comment on above: Performed By: #### C BC #### [facility] [address] [address] [address] Ricky Valenzuela RBC 4.17 106/ul Critically low 4.20-5.40 [facility] Comment on above: Performed By: #### C BC #### [facility] [address] [address] [address] Ricky Valenzuela WBC 11.2 103/ul Critically high 4.0-11.0 [facility] Comment on above: Performed By: #### C BC #### [facility] [address] [address] [address] Ricky Valenzuela GLYCOHEMOGLOBIN A1Con 2021 ADA RECOMMENDATION SEE BELOW Normal [facility] Comment on above: Result Comment: ADA RECOMMENDED LIMIT 4.0 - 6.0 ADA THERAPEUTIC TARGET < 7.0 ACTION SUGGESTED > 7.0 Performed By: #### A 1C ####[facility] [address] [address]Dr. Ricky Valenzuela Glucose [Mass/Vol] 183 mg/dL Normal [facility] Comment on above: Performed By: #### A 1C ####[facility] [address] [address]Dr. Ricky Valenzuela HbA1c (Bld) [Mass fraction] 8.0 % Critically high 4.5-6.2 [facility] Comment on above: Performed By: #### A 1C ####[facility] [address] [address]Dr. Ricky Valenzuela LIPID PROFILEon 08-09-2021 CHOL-HDL RATIO NORM SEE BELOW Normal [facility] Comment on above: Result Comment: 3.3 - 4.4 LOW RISK 4.4 - 7.1 AVERAGE RISK 7.1 - 11.0 MODERATE RISK >11.0 HIGH RISK Performed By: #### C MP, LIPID #### [facility] [address] [address] [address] Ricky Valenzuela Cholesterol [Mass/Vol] 239 mg/dL Critically high <=200 [facility] Comment on above: Performed By: #### C MP, LIPID #### [facility] [address] [address] [address] Ricky Valenzuela Cholesterol in HDL [Mass/Vol] 36 mg/dL Critically low 40-60 [facility] Comment on above: Performed By: #### C MP, LIPID #### [facility] [address] [address] [address] Ricky Valenzuela Cholesterol in LDL [Mass/Vol] 164.2 mg/dL Normal [facility] Comment on above: Performed By: #### C MP, LIPID #### [facility] [address] [address] [address] Ricky Valenzuela Cholesterol.total/Cho lesterol in HDL [Mass ratio] 6.6 {ratio} Normal [facility] Comment on above: Performed By: #### C MP, LIPID #### [facility] [address] [address] [address] Ricky Valenzuela HDL NORMAL > or = 60 mg/dl - LO W CARDIOVASCULAR RISK <40 mg/dl - HIGH CARDIOVASCULAR RISK Normal [facility] Comment on above: Performed By: #### C MP, LIPID #### [facility] [address] [address] [address] Ricky Valenzuela LDL CALC NORMAL SEE BELOW Normal [facility] Comment on above: Result Comment: <100 mg/dl OPTIMAL 100 - 129 mg/dl NEAR OR ABOVE OPTIMAL 130 - 159 mg/dl BORDERLINE HIGH 160 - 189 mg/dl HIGH >190 mg/dl VERY HIGH Performed By: #### C MP, LIPID #### [facility] [address] [address] [address] Ricky Valenzuela Triglyceride [Mass/Vol] 194 mg/dL Critically high <=150 [facility] Comment on above: Performed By: #### C MP, LIPID #### [facility] [address] [address] [address] Ricky Valenzuela VLDL CALC 38.8 mg/dL Normal [facility] Comment on above: Performed By: #### C MP, LIPID #### [facility] [address] [address] [address] Ricky Valenzuela MICROALBUMIN, RAND URon 06-2 mALB 13.1 mg/L Normal <=30.0 [facility] Comment on above: Performed By: #### M ALBR ####[facility] [address] [address]Dr. Ricky Valenzuela PROF 14(COMP METB)on 022 Albumin [Mass/Vol] 3.3 g/dL Critically low 3.4-5.0 [facility] Comment on above: Performed By: #### C MP, LIPID #### [facility] [address] [place] [address] Dr. Ricky Valenzuela Albumin/Globulin [Mass ratio] 0.8 {ratio} Normal [facility] Comment on above: Performed By: #### C MP, LIPID #### [facility] [address] [place] [address] Dr. Ricky Valenzuela ALP [Catalytic activity/Vol] 93 U/L Normal 46-116 [facility] Comment on above: Performed By: #### C MP, LIPID #### [facility] [address] [place] [address] Dr. Ricky Valenzuela ALT [Catalytic activity/Vol] 37 U/L Normal 14-59 [facility] Comment on above: Performed By: #### C MP, LIPID #### [facility] [address] [place] [address] Dr. Ricky Valenzuela Anion gap [Moles/Vol] 10.9 mmol/L Normal [facility] Comment on above: Performed By: #### C MP, LIPID #### [facility] [address] [place] [address] Dr. Ricky Valenzuela AST [Catalytic activity/Vol] 10 U/L Critically low 15-37 [facility] Comment on above: Performed By: #### C MP, LIPID #### [facility] [address] [place] [address] Dr. Ricky Valenzuela Bilirubin [Mass/Vol] 0.2 mg/dL Normal 0.2-1.0 [facility] Comment on above: Performed By: #### C MP, LIPID #### [facility] [address] [place] [address] Dr. Ricky Valenzuela Calcium [Mass/Vol] 9.0 mg/dL Normal 8.5-10.1 [facility] Comment on above: Performed By: #### C MP, LIPID #### [facility] [address] [place] [address] Dr. Ricky Valenzuela Chloride [Moles/Vol] 100 mmol/L Normal 98-107 [facility] Comment on above: Performed By: #### C MP, LIPID #### [facility] [address] [place] [address] Dr. Ricky Valenzuela CO2 [Moles/Vol] 32.2 mmol/L Critically high 21.0-32.0 [facility] Comment on above: Performed By: #### C MP, LIPID #### [facility] [address] [place] [address] Dr. Ricky Valenzuela Creatinine [Mass/Vol] 0.95 mg/dL Normal 0.55-1.02 [facility] Comment on above: Performed By: #### C MP, LIPID #### [facility] [address] [place] [address] Dr. Ricky Valenzuela EGFR-AF RWANDAN >60 Normal >=60 [facility] Comment on above: Performed By: #### C MP, LIPID #### [facility] [address] [place] [address] Dr. Ricky Valenzuela EGFR-NON AF RWANDAN >60 Normal >=60 [facility] Comment on above: Performed By: #### C MP, LIPID #### [facility] [address] [place] [address] Dr. Ricky Valenzuela Globulin (S) [Mass/Vol] 4.2 g/dL Normal [facility] Comment on above: Performed By: #### C MP, LIPID #### [facility] [address] [place] [address] Dr. Ricky Valenzuela Glucose [Mass/Vol] 200 mg/dL Critically high 74-106 [facility] Comment on above: Performed By: #### C MP, LIPID #### [facility] [address] [place] [address] Dr. Ricky Valenzuela Potassium [Moles/Vol] 4.1 mmol/L Normal 3.5-5.1 [facility] Comment on above: Performed By: #### C MP, LIPID #### [facility] [address] [place] [address] Dr. Ricky Valenzuela Protein [Mass/Vol] 7.5 g/dL Normal 6.4-8.2 [facility] Comment on above: Performed By: #### C MP, LIPID #### [facility] [address] [place] [address] Dr. Ricky Valenzuela Sodium [Moles/Vol] 139 mmol/L Normal 136-145 [facility] Comment on above: Performed By: #### C MP, LIPID #### [facility] [address] [place] [address] Dr. Ricky Valenzuela Urea nitrogen [Mass/Vol] 13.0 mg/dL Normal 7.0-18.0 [facility] Comment on above: Performed By: #### C MP, LIPID #### [facility] [address] [place] [address] Dr. Ricky Valenzuela Urea nitrogen/Creatinine [Mass ratio] 13.7 mg/mg Normal [facility] Comment on above: Performed By: #### C MP, LIPID #### [facility] [address] [place] [address] Dr. Ricky Valenzuela POINT OF CARE GLUCOSEon 05 Glucose [Mass/Vol] 176 mg/dL Critically high 74-106 [facility] Comment on above: Performed By: #### P OCGLUC #### [facility] [address] [place] [address] Dr. Ricky Valenzuela Vital Signs Date Time Vital Sign Value Performing Clinician Facility 01-18-2023 09:10-0500 Body height 156.21 cm Elle Hendricks Other [employer] Other 01-18-2023 09:10-0500 Body mass index (BMI) [Ratio] 42.82 kg/m2 Elle Hendricks Other [employer] Other 01-18-2023 09:10-0500 Body temperature 98.2 [degF] Elle Hendricks Other [employer] Other 01-18-2023 09:10-0500 Body weight 104.51 kg Elle Hendricks Other [employer] Other 01-18-2023 09:10-0500 Diastolic blood pressure 92 mm[Hg] Elle Hendricks Other [employer] Other 01-18-2023 09:10-0500 Respiratory rate 18 /min Elle Hendricks Other [employer] Other 01-18-2023 09:10-0500 SaO2% (BldA) [Mass fraction] 97 % Elle Hendricks Other [employer] Other 01-18-2023 09:10-0500 Systolic blood pressure 145 mm[Hg] Elle Hendricks Other [employer] Other Encounters Encounter Date Encounter Type Care Provider Facility Start: 05-02-2023 End: 05-02-2023 ambulatory SHAIKH MARICEL Not Available Start: 04-30-2023 End: 04-30-2023 ambulatory [facility] Work Phone: Start: 04-30-2023 End: 04-30-2023 Patient encounter procedure [facility] Work Phone: Start: 03-21-2023 Orders Only Shaikh Maricel HOLLIS Work Phone: [facility] Comment on above: Diabetic polyneuropa thy associated with type 2 diabetes mellitus (CMS/HCC) (Primary Dx) Start: 03-19-2023 End: 03-19-2023 ambulatory Ana Luisa Curtis Other [employer] Other Start: 03-19-2023 Office outpatient vi sit 15 minutes Ana Luisa Calvey [facility] Start: 02-25-2023 End: 02-25-2023 ambulatory ELIDA GARCIA Not Available Start: 01-29-2023 End: 01-29-2023 ambulatory SHAIKH MARICEL Not Available Start: 01-23-2023 End: 01-23-2023 ambulatory Ana Luisa Curtis Other [employer] Other Start: 01-23-2023 Office outpatient vi sit 15 minutes Ana Luisa Julianoey [facility] Start: 01-18-2023 End: 01-18-2023 ambulatory Elle Hendricks Other [employer] Other Start: 01-18-2023 Office outpatient vi sit 15 minutes Elle Hendricks [facility] Start: 09-19-2022 End: 09-19-2022 ambulatory Ana Luisa Curtis Other [employer] Other Start: 09-19-2022 Telephone encounter Ana Luisa Curtis [facility] Start: 07-12-[address] JONATHAN EDWARDS Facili ty:[facility] Start: 06-07-2022 End: 06-08-[address] JONATHAN EDWARDS Facility:[facility] Start: 05-02-2022 End: 05-02-2022 ambulatory Ana Luisa Curtis Other [employer] Other Start: 05-02-2022 Office outpatient ne w 30 minutes Ana Luisa Curtis [facility] Start: 04-12-2022 End: 04-13-[address] JONATHAN EDWARDS Facility:[facility] Start: 03-08-2022 End: 03-09-[address] JONATHAN EDWARDS Facility:[facility] Start: 02-16-2022 End: 02-17-[address] JONATHAN EDWARDS Facility:[facility] Start: 02-09-2022 End: 02-10-[address] RICARDO HOLM . Facility:[facility] Start: 11-16-2021 End: 11-17-[address] JONATHAN EDWARDS Facility:[facility] Start: 11-01-2021 End: 11-02-2021 ambulatory CRYS PIERCE . Facility:[facility] Start: 08-30-2021 End: 08-31-2021 ambulatory NIKKIE BARCLAY [facility] Start: 08-30-2021 End: 08-30-2021 Subsequent hospital visit by physician [facility] DO Work Phone: [facility] Comment on above: Routine cervical sme ar Start: 08-16-2021 Encounter for genera l adult medical examination without abnormal findings DR RICARDO HOLM . [facility] Start: 08-09-2021 End: 08-10-2021 Encounter for general [...] Date Procedure Procedure Detail Performing Clinician Start: 03-20-2023 Mammography Shaikh Marie calero MD Work Phone: Start: 08-30-2021 Microscopic observat ion [Identifier] in Cervix by Cyto stain [facility] DO Work Phone: Plan of Treatment Date Care Activity Detail Author Start: 03-08-2026 Screening for malign ant neoplasm of colon [facility] Start: 08-30-2024 Screening for malign ant neoplasm of cervix [facility] Start: 03-20-2024 Screening for malign ant neoplasm of breast Mammogram [facility] Start: 02-27-2024 End: 02-27-2024 Patient encounter procedure 02/27/2024 11:35 AM EST Office Visit [facility] [address] [place] [address] Elida Garcia MD [address] [place] [address] [facility] Start: 02-12-2024 Glaucoma screening Diabetes: R etinopathy Screening [facility] Start: 08-11-2023 Influenza vaccination Influenza Vacc ine (#1) [facility] Comment on above: Postponed from 10/12 (Patient Refused) Start: 05-02-2023 End: 05-02-2023 Patient encounter procedure 05/02/2023 2:00 PM EDT Office Visit [facility] [address] [place] [id number] Shaikh Connelly MD [address] [place] [id number] [facility] Start: 02-17-2023 Hemoglobin A1c measurement Diabetes: Hemoglobin A1C [facility] Start: 09-04-2022 End: 09-04-2022 Patient encounter procedure 09/04/2022 Office Visit Obstetrics and Gynecology Nikkie Barclay, ANGEL - CRISTAL [address] [facility] [address] [place] [address] [facility] Start: 10-12-2021 Influenza vaccination Flu vaccine (# 1) [facility] Start: 10-21-2013 Screening for malign ant neoplasm of breast Breast cancer screen [facility] Start: 10-21-2013 Shingles vaccine (1 of 2) Shingles vaccine (1 of 2) [facility] Start: 10-21-2008 Screening for malign ant neoplasm of colon [facility] Start: 2003 Lipid panel Lipids [facility] Start: 10-21-1998 Diabetes screen Diabetes screen [facility] Start: 10-21-1993 Screening for malign ant neoplasm of cervix [facility] Start: 10-21-1982 DTaP/Tdap/Td vaccine (1 - Tdap) DTaP/Tdap/Td vaccine (1 - Tdap) [facility] Start: 10-21-1982 Urine screening for protein Diabetes: Urine Protein Screening [facility] Start: 10-21-1981 Hepatitis C screening Hepatitis C sc reen [facility] Start: 10-21-1978 HIV screening HIV screen [facility] Start: 1975 Depression Screen Depression Screen [facility] Start: 04-20-1964 COVID-19 Vaccine (#1) COVID-19 Vacci ne (#1) [facility] Start: 1963 Screening for malign ant neoplasm of colon [facility] End: 08-30-2021 Cytopathology procedure, preparation of smear, genital source [facility] Routine Routine cervical smear 1 Occurrences starting 08/30/2021 until 08/30/2021 [facility] Work Phone: Comment on above: 1 Occurrences starti ng 08/30/2021 until 08/30/2021 Immunizations Immunization Date Immunization Notes Care Provider Tima garcia 01-14-2017 influenza, injectabl e, quadrivalent, preservative free [facility] Payers Date Payer Category Payer Unknown [employer] [id number] 2022-Present [phone] [address] [address] [place] [address] [id number] 2012 Medicare MEDICARE MEDICAR E PART B [id number] 2012-[place] [address] [place] [address] Medicare [id number] 1963 Unknown [id number] 2.16.840.1.538634.3.579.2.17 3 1963 Unknown [id number] 2.16.840.1.059405.3.579.2.59 3 1963 Unknown [id number] 2.16.840.1.394385.3.579.2.59 3 1963 Unknown [id number] 2.16.840.1.383598.3.579.2.59 3 1963 Unknown [id number] 2.16.840.1.368412.3.579.2.59 3 1963 Unknown [id number] 2.16.840.1.947216.3.579.2.59 3 1963 Unknown [id number] 2.16.840.1.374524.3.579.2.59 3 1963 Unknown [id number] 2.16.840.1.180185.3.579.2.59 3 1963 Unknown [id number] 2.16.840.1.870440.3.579.2.59 3 1963 Unknown [id number] 2.16.840.1.548553.3.579.2.59 3 1963 Unknown [id number] 2.16.840.1.629959.3.579.2.59 3 1963 Unknown [id number] 2.16.840.1.172511.3.579.2.59 3 1963 Unknown [id number] 2.16.840.1.049795.3.579.2.59 3 1963 Unknown [id number] 2.16.840.1.228776.3.579.2.59 3 1963 Unknown [id number] 2.16.840.1.062944.3.579.2.59 3 1963 Unknown [id number] 2.16.840.1.477986.3.579.2.59 3 1963 Unknown [id number] 2.16.840.1.886821.3.579.2.59 3 1963 Unknown [id number] 2.16.840.1.370160.3.579.2.12 59 1963 Unknown [id number] 2.16.840.1.422500.3.579.2.12 59 1963 Unknown [id number] 2.16.840.1.276173.3.579.2.12 59 1959 Medicare [id number] 1.2.840.740559.1.13.239.2.7. 3.651902.315 1959 Unknown [id number] 1.2.840.217457.1.13.239.2.7. 3.204484.315 1959 Unknown [id number] 2.16.840.1.824953.19 Medicare Medicare [id number] Self-pay Self Pay [id number] Social History Date Type Detail Facility Start: 08-30-[address] [facility] Smokes tobacco daily [email or web address] Phone: History of tobacco use Cigarette Smoker [employer] Phone: Start: 08-30-2021 End: 01-29-2023 Tobacco use and exposure Smokeless tobacco non-user [email or web address] Phone: Start: 08-30-2021 Alcohol intake Current drinke r of alcohol (finding) [email or web address] Phone: Start: 08-30-2021 History SDOH Alcohol Comment occasional [email or web address] Phone: Start: 1965 Sex Assigned At Not on file [employer] Phone: Start: 08-20-2021 End: 08-30-2021 Exposure to SARS-CoV-2 (event) Not sure [employer] Start: 02-25-2023 Sex Assigned At [facility] [employer] Other Start: 01-23-2023 End: 01-29-2023 Tobacco smoking status [facility] Ex-smoker [facility] History of tobacco use Current smoker [facility] Start: 01-29-2023 End: 02-25-2023 Cigarettes smoked current (pack per day) - Reported 0.5 [facility] Start: 02-25-2023 Alcohol intake Lifetime non-d gus (finding) [facility] Start: 1965 Sex Assigned At Female F [facility] Medical Equipment Procedure Code Equipment Code Equipment Origin al Text Equipment Identifier Dates USE TO TEST BLOO D SUGAR TWICE DAILY [id number] Start: 06-08-2021 Clinical Notes 06-20-2021 to 03-19-2023 Note Date & Type Note Facility 03-19-2023 Evaluation note Encounter Date Diagnosis Assessment Notes Mar, 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 The patient tolerated this well without complication . We discussed that the finger may feel numb and tingle for hours after this injection. Mar, Right wrist pain (ICD-10 - M25.531) Mar, Left hand pain (ICD-10 - M79.642) [employer] Other 12-13-2023 Evaluation note* Encounter Date Diagnosis Assessment Notes Treatment Notes Treatment Clinical Notes Jan, Right wrist pain (ICD-10 - [...] noted. Patient will f/u in 4 weeks. [employer] Other 12-08-2023 Evaluation note* Encounter Date Diagnosis [...] left hand x-ray that was performed at [facility] which revealed degenerative changes in the hand as well as a remote avulsion fracture of the thumb. Patient states her family doctor is treating her for gout in her hand. Jan, History of gout (ICD-10 - Z87.39) Jan, Other Gout material w as printed [employer] Other 08-09-2023 Evaluation note* Encounter Date Diagnosis Assessment Notes Treatment Notes Treatment Clinical Notes Sep, Right wrist pain (ICD-10 - M25.531) [employer] Other 04-27-2023 NoteCONSULTATION CONSULTATION DATE: 06/07/2022 TO: [...] our patients to inform us about any cbon-zld-kdqexjs medications or herbal remedies/nutritional supplements/alternative remedies. 2. [...] treatment options with their primary care provider.[id number] Evaluation note * Encounter Date Diagnosis Assessment [...] understanding and is agreeable to treatment plan. [employer] Other 01-26-2023 NoteCONSULTATION PROCEDURE DATE: 03/08/2022 PREOPERATIVE [...] will be followed up in the clinic.[facility] [id number] NotePROCEDURE: XR KNEE LT 4V or > [...] Electronically authenticated by: PATTIE SALTER Date: 2022-02-16 11:29[facility] [id number] NoteCONSULTATION CONSULTATION DATE: 02/09/2022 HISTORY OF PRESENT [...] office today. Patient agrees with this plan.[facility] HospitalMtankchq87-10-1032 NotePROCEDURE: XR WRIST RT MIN 3 V COMPARISON: None. HISTORY: Injury of right wrist FINDINGS: BONES:No acute fracture or dislocation. Corticated bone fragment identified along the first carpometacarpal joint [degenerative in nature SOFT TISSUES:Moderate diffuse soft tissue swelling EFFUSION:None visible. OTHER: Negative. IMPRESSION: Soft tissue swelling, no acute fracture Electronically authenticated by: RYAN GOLDMAN Date: 2021-11-16 18:59[facility] [id number] NoteCONSULTATION CONSULTATION DATE: 11/01/2021 HISTORY OF PRESENT [...] otherwise indicated. Patient agrees with this plan.[facility] [id number] NoteCONSULTATION PROCEDURE DATE: 11/01/2021 PRE AND POSTOPERATIVE [...] will be followed up in the clinic.[facility] [id number] NoteCONSULTATION PROCEDURE DATE: 08/09/2021 PREOPERATIVE DIAGNOSIS: Bilateral [...] will be followed up in the clinic. [facility] Signed and Approved by: CRYS PIERCE . 08/10/2021 13:37:00[facility]06-08-2022 NoteCONSULTATION CONSULTATION DATE: 07/19/2021 HISTORY OF PRESENT [...] pattern to direct compression along these muscles. Beal's point is non-tender bilaterally with Gorge's and [...] injections. Patient acknowledges and all questions answered. [facility] Signed and Approved by: CRYS PIERCE . 07/20/2021 10:33:00[facility]05-25-2022 NotePROCEDURE: XR FOOT RT MIN 3 [...] Electronically authenticated by: PATTIE SALTER Date: 2021-07-05 11:11[facility]05-10-2022 NoteCONSULTATION CONSULTATION DATE: 06/20/2021 CHIEF COMPLAINT: [...] like to proceed. CC: Jonathan Edwards M.D. [facility] Signed and Approved by: DR RICARDO HOLM . 06/27/2021 10:40:00[facility] Diagnosis Routine cervical smear Screening for malignant neoplasm of the cervix documented in this encounter [facility] Work Phone: evaluation note* Diagnosis Diabetic polyneuropathy associated with type 2 diabetes mellitus (CMS/HCC)- Primary documented in this encounter [facility] HealthcareEvaluation noteNo assessment information availableEast [facility] Work Phone: History general Narrative - Reported* Type Description Date Medical History GERD (gastroesophageal reflux di sease) Medical History Migraine headache Medical History Arthritis Medical History Edema of both legs Medical History Diabetes mellitus, type 2 Medical History Chronic back pain Surgical History ablasion Surgical History back surgery Surgical History hysterectomy Surgical History tubal ligation Hospitalization History see above [employer] Other Summary Purpose Family History No Family History Records Found Relationship Condition Age at Onset Recorded Date/T samreen Not Specified Heart disease Unknown Diabetes mellitus Unknown Advance Directives No Advanced Directives Records Found Advance Directive Response Recorded Date/ Time Advance Directives No January 12, 2017 9:25pm Chief Complaint and Reason for Visit Chief Complaint 4-6 WEEK RECHECK Additional Source Comments Care Teams (unrecognized sec tion and content) Software Implementation Project Manager Relationship Specialty Start Date End Date Sr Jonathan Edwards DO [address] [place] [address] PCP - General Family Medicine 08/30/21 Software Implementation Project Manager Relationship Specialty Start Date End Date Shaikh Connelly MD PCP - General Internal Medicine 11/11/22 Team Status: Active Member Role Status Dates NON STAFF Primary Care Provider Active Team Status: Inactive Member Role Status Dates Ana Luisa Curtis MD Attending Provider Active Start: April 30, 2023 End: April 30, 2023 NON STAFF Primary Care Provider Active Start: April 30, 2023 End: April 30, 2023 INFORMATION SOURCE (unrecogn ized section and content) DATE CREATED AUTHOR 09/10/2021 [facility] DATE CREATED AUTHOR AUTHOR'S ORGANIZ ATION 06/08/2022 [facility] DATE CREATED AUTHOR AUTHOR'S ORGANIZ ATION 05/04/2023 [facility] EPIC REASON FOR VISIT (unrecogniz ed section and content) Right Wrist PaincholchicineL EFT HAND PAIN/SWELLINGLeft Wrist PainRecheck Left Wrist Goals (unrecognized section and content) Goals may be documented in a n alternate section FOR RECORDS PERTAINING TO PATIENTS WHO ARE [...] BE BASED ON THE PRIMARY CLINICAL RECORDS. [facility]. provides no warranty or guarantee of the accuracy or completeness of information in this document."
== END 2023-06-06 12:13 | disposition home or self-care (01) ==
LOC: MRI 12:12
PROVIDERS: PCP Internal Medicine; Visit Provider Nurse Practitioner
DX: M48.062 Spinal stenosis, lumbar region with neurogenic claudication (principal); M51.36 Other intervertebral disc degeneration, lumbar region; M47.816 Spondylosis without myelopathy or radiculopathy, lumbar region
CPT/HCPCS: 72148

== ENCOUNTER 2023-06-08 14:28 | Inpatient (IN) | payer OTHER, MEDICARE, SELFPAY ==
--- OUTSIDE RECORDS SUMMARY | 2023-06-08 14:44 | XMS_ITS | CCD ---
Author Organization [facility] Care Team Providers Care [employer] Name Role Phone House DO, Sr Jonathan Klein Primary Care Provider [phone] NIKKIE BARCLAY Referring Unavailabl e HOUSE, SR [...] Unavailable KAREN, SUSSY Dos Santos Attending Unavailable TALLMADGE, DR BASURTO Primary Care Unavailable GAETANO, DR PATTIE Nieves Consulting Unavailable [facility] S[facility] Dos Santos Consulting Unavailable HOUSE, DR BASURTO Attending Unavailable HOUSE, DR BASURTO Primary Care Unavailable HOUSE, DR BASURTO Admitting Unavailable HOUSE, DR BASURTO Consulting Unavailable HOUSE, DR BASURTO Primary Care Unavailable GAETANO, DR PATTIE Nieves Consulting Unavailable LAKSHMIPATHY ., NARENDRANATH Admitting Nellie vailable LAKSHMIPATHY ., NARCAMRYNATH Attending Nellie vailable LAKSHMIPATHY ., BILLY Consulting Nellie vailable HOUSE, DR BASURTO Admitting Unavailable TALLMADGE, DR BASURTO Attending Unavailable TALLMADGE, DR BASURTO Primary Care Unavailable GREENWOOD, DR RYAN Guzman Consulting Unavailable HOUSE, DR [...] Trimble Unavailable PIERCE ., CRYS Trimble Unavailable TALLMADGE, DR BASURTO Primary Care Unavailable HOLM ., [...] 12, 2017 1:00am January 15, 2017 2:23pm Hdpuvjhdinuo-Yk-Yom n-Minerals (Multiple Vitamin, Womens) Tablet (1 source) Start: 01-12-2017 End: 01-15-2017 Btgfvriyaklu-Hz-Fl on-Minerals (Multiple Vitamin, Womens) Tablet Discontinued PO [...] greatest at L2-3. Electronically authenticated by: PATTIE ASLTER Date: 2022-06-07 11:15 Normal [facility] CBC AUTO DIFFon 04-12-2022 BASO # 0.1 103/ul Normal 0.0-0.1 [facility] Comment on above: Performed By: #### C BC ####[facility] [address] [place] [address]DrPasquale Valenzuela Basophils/100 WBC (Bld) 0.5 % Normal 0.2-2.0 [facility] Comment on above: Performed By: #### C BC ####[facility] [address] [place], [place] [address]DrPasquale Valenzuela EO # 0.3 103/ul Normal 0.0-0.7 [facility] Comment on above: Performed By: #### C BC ####[facility] L[address] [place], [place] [address]DrPasquale Valenzuela Eosinophils/100 WBC (Bld) 3.0 % Normal 0.9-7.0 [facility] Comment on above: Performed By: #### C BC ####[facility] [address] [place], [place] [address]DrPasquale Valenzuela Erythrocyte distribution width (RBC) [Ratio] 14.8 % Normal 11.0-15.0 [facility] Comment on above: Performed By: #### C BC ####[facility] [address] [place], [place] [address]DrPasquale Valenzuela Hematocrit (Bld) [Volume fraction] 40.6 % Normal 36.0-48.0 [facility] Comment on above: Performed By: #### C BC ####[facility] [address] [place], [place] [address]DrPasquale Valenzuela Hemoglobin (Bld) [Mass/Vol] 13.5 g/dL Normal 12.0-16.0 [facility] Comment on above: Performed By: #### C BC ####[facility] L[address] [place], [place] [address]DrPasquale Suttonsharron Nicolas IG # 0.16 10e3/ul Critically high 0.00-0.03 [facility] Comment on above: Performed By: #### C BC ####[facility] [address] [place] [address]DrPasquale Ricky Nicolas IG % 1.4 % Critically high 0.0-0.5 [facility] Comment on above: Performed By: #### C BC ####[facility] [address] [place] [address]DrPasquale Suttonsharron Nicolas LYMPH # 3.4 103/ul Normal 1.2-3.8 [facility] Comment on above: Performed By: #### C BC ####[facility] [address] [place] [address]DrPasquale Valenzuela Lymphocytes/100 WBC (Bld) 30.4 % Normal 20.5-60.0 [facility] Comment on above: Performed By: #### C BC ####[facility] [address] [place], [place] [address]DrPasquale Valenzuela MANUAL DIFF REQ NO Normal [facility] Comment on above: Performed By: #### C BC ####[facility] [address] [place], [place] [address]DrPasquale Ricky Nicolas MCH (RBC) [Entitic mass] 31.8 pg Normal 26.7-34.0 [facility] Comment on above: Performed By: #### C BC ####[facility] [address] [place], [place] [address]DrPasquale Suttonsharron Nicolas MCHC (RBC) [Mass/Vol] 33.3 g/dL Normal 29.9-35.2 [facility] Comment on above: Performed By: #### C BC ####[facility] [address] [place], [place] [address]DrPasquale Valenzuela MCV (RBC) [Entitic vol] 95.5 fL Normal 81.0-99.0 [facility] Comment on above: Performed By: #### C BC ####[facility] [address] [place], [place] [address]DrPasquale Valenzuela MONO # 0.9 103/ul Critically high 0.3-0.8 [facility] Comment on above: Performed By: #### C BC ####[facility] [address] [place] [address]Dr. Ricky Valenzuela Monocytes/100 WBC (Bld) 7.7 % Normal 1.7-12.0 [facility] Comment on above: Performed By: #### C BC ####[facility] [address] [place] [address]Dr. Ricky Valenzuela NEUT # 6.3 103/ul Normal 1.4-6.5 [facility] Comment on above: Performed By: #### C BC ####[facility] [address] [place] [address]Dr. Ricky Valenzuela Neutrophils/100 WBC (Bld) 57.0 % Normal 43.0-75.0 [facility] Comment on above: Performed By: #### C BC ####[facility] G[address] [place], [place] [address]Dr. Ricky Valenzuela Platelet mean volume (Bld) [Entitic vol] 9.8 fL Normal 9.5-13.5 [facility] Comment on above: Performed By: #### C BC ####[facility] [address] [place] [address]Dr. Ricky Valenzuela PLT 246 103/ul Normal 150-450 [facility] Comment on above: Performed By: #### C BC ####[facility] [address] [place] [address]Dr. Ricky Valenzuela RBC 4.25 106/ul Normal 4.20-5.40 [facility] Comment on above: Performed By: #### C BC ####[facility] [address] [place] [address]Dr. Ricky Valenzuela WBC 11.1 103/ul Critically high 4.0-11.0 [facility] Comment on above: Performed By: #### C BC ####[facility] [address] [place], [place] [address]Dr. Ricky Valenzuela GLYCOHEMOGLOBIN A1Con 2022 ADA RECOMMENDATION SEE BELOW Normal [facility] Comment on above: Result Comment: ADA RECOMMENDED LIMIT 4.0 - 6.0 ADA THERAPEUTIC TARGET < 7.0 ACTION SUGGESTED > 7.0 Performed By: #### A 1C ####[facility] [address] [place] [address]Dr. Ricky Valenzuela Glucose [Mass/Vol] 160 mg/dL Normal [facility] Comment on above: Performed By: #### A 1C ####[facility] [address] [place] [address]Dr. Ricky Valenzuela HbA1c (Bld) [Mass fraction] 7.2 % Critically high 4.5-6.2 [facility] Comment on above: Performed By: #### A 1C ####[facility] [address] [place] [address]DrPasquale Valenzuela MICROALBUMIN, RAND URon mALB <1.3 Normal <=30.0 [facility] Comment on above: Performed By: #### M ALBR #### [facility] [address] [address] [address] Ricky Valenzuela PROF 14(COMP METB)on 023 Albumin [Mass/Vol] 3.3 g/dL Critically low 3.4-5.0 [facility] Comment on above: Performed By: #### C MP #### [facility] [address] [address] [address] Ricky Valenzuela Albumin/Globulin [Mass ratio] 0.9 {ratio} Normal [facility] Comment on above: Performed By: #### C MP #### [facility] [address] [address] [address] Ricky Valenzuela ALP [Catalytic activity/Vol] 90 U/L Normal 46-116 [facility] Comment on above: Performed By: #### C MP #### [facility] [address] [address] [address] Ricky Valenzuela ALT [Catalytic activity/Vol] 42 U/L Normal 14-59 [facility] Comment on above: Performed By: #### C MP #### [facility] [address] [address] [address] Ricky Valenzuela Anion gap [Moles/Vol] 10.1 mmol/L Normal [facility] Comment on above: Performed By: #### C MP #### [facility] [address] [address] [address] Ricky Valenzuela AST [Catalytic activity/Vol] 21 U/L Normal 15-37 [facility] Comment on above: Performed By: #### C MP #### [facility] [address] [address] [address] Ricky Valenzuela Bilirubin [Mass/Vol] 0.3 mg/dL Normal 0.2-1.0 [facility] Comment on above: Performed By: #### C MP #### [facility] [address] [address] [address] Ricky Valenzuela Calcium [Mass/Vol] 9.8 mg/dL Normal 8.5-10.1 [facility] Comment on above: Performed By: #### C MP #### [facility] [address] [address] [address] Ricky Valenzuela Chloride [Moles/Vol] 99 mmol/L Normal 98-107 [facility] Comment on above: Performed By: #### C MP #### [facility] [address] [address] [address] Ricky Valenzuela CO2 [Moles/Vol] 33.7 mmol/L Critically high 21.0-32.0 [facility] Comment on above: Performed By: #### C MP #### [facility] [address] [address] [address] Ricky Valenzuela Creatinine [Mass/Vol] 0.94 mg/dL Normal 0.55-1.02 [facility] Comment on above: Performed By: #### C MP #### [facility] [address] [address] [address] Ricky Valenzuela EGFR-AF BANGLADESHI >60 Normal >=60 [facility] Comment on above: Performed By: #### C MP #### [facility] [address] [address] [address] Ricky Valenzuela EGFR-NON AF BANGLADESHI >60 Normal >=60 [facility] Comment on above: Performed By: #### C MP #### [facility] [address] [place] [address] Dr. Ricky Valenzuela Globulin (S) [Mass/Vol] 3.8 g/dL Normal [facility] Comment on above: Performed By: #### C MP #### [facility] [address] [place] [address] Dr. Ricky Valenzuela Glucose [Mass/Vol] 168 mg/dL Critically high 74-106 [facility] Comment on above: Performed By: #### C MP #### [facility] [address] [place] [address] Dr. Ricky Valenzuela Potassium [Moles/Vol] 4.8 mmol/L Normal 3.5-5.1 [facility] Comment on above: Performed By: #### C MP #### [facility] [address] [place] [address] Dr. Ricky Valenzuela Protein [Mass/Vol] 7.1 g/dL Normal 6.4-8.2 [facility] Comment on above: Performed By: #### C MP #### [facility] [address] [place] [address] Dr. Ricky Valenzuela Sodium [Moles/Vol] 138 mmol/L Normal 136-145 [facility] Comment on above: Performed By: #### C MP #### [facility] [address] [place] [address] Dr. Ricky Valenzuela Urea nitrogen [Mass/Vol] 22.0 mg/dL Critically high 7.0-18.0 [facility] Comment on above: Performed By: #### C MP #### [facility] [address] [place] [address] Dr. Ricky Valenzuela Urea nitrogen/Creatinine [Mass ratio] 23.4 mg/mg Normal [facility] Comment on above: Performed By: #### C MP #### [facility] [address] [place] [address] Dr. Ricky Valenzuela Cytologyon 07-20-2022 Cytology (NOTE) INTERPRETATION Vaginal material, (ThinPrep vial, Imaging-assisted review): Specimen Adequacy: Satisfactory for evaluation. Descriptive Diagnosis: Negative for intraepithelial lesion or malignancy. Insole And Outsole Preparer: CLARK Delacruz(ASCP) Electronically Signed Out ss/09/07/2021 Source: A: Vaginal material, (ThinPrep vial, Imaging-assisted review) Clinical History Hysterectomy Surgery: Salpingostomy; Ovary removal Z12.4 Encounter for screening for malignant neoplasm of cervix GYNECOLOGIC CYTOLOGY REPORT Patient Name: KARINA DE OLIVEIRA [facility] Rec: [id number] Path Number: [id number] [facility] [employer] ANATOMIC PATHOLOGY [address] [place] [phone] Normal [facility] Comment on above: Performed By: #### P PPVP #### [address] [id number] Box Estimator: Luca Cummins MD CBC AUTO DIFFon 08-09-2021 BASO # 0.1 103/ul Normal 0.0-0.1 [facility] Comment on above: Performed By: #### C BC #### [facility] [address] [place] [address] Dr. Ricky Valenzuela Basophils/100 WBC (Bld) 0.8 % Normal 0.2-2.0 [facility] Comment on above: Performed By: #### C BC #### [facility] [address] [place] [address] Dr. Ricky Valenzuela EO # 0.2 103/ul Normal 0.0-0.7 [facility] Comment on above: Performed By: #### C BC #### [facility] [address] [address] [address] Ricky Valenzuela Eosinophils/100 WBC (Bld) 2.1 % Normal 0.9-7.0 [facility] Comment on above: Performed By: #### C BC #### [facility] [address] [place] [address] Dr. Ricky Valenzuela Erythrocyte distribution width (RBC) [Ratio] 15.2 % Critically high 11.0-15.0 [facility] Comment on above: Performed By: #### C BC #### [facility] [address] [place] [address] Dr. Ricky Valenzuela Hematocrit (Bld) [Volume fraction] 41.5 % Normal 36.0-48.0 [facility] Comment on above: Performed By: #### C BC #### [facility] [address] [place] [address] Dr. Ricky Valenuzela Hemoglobin (Bld) [Mass/Vol] 13.5 g/dL Normal 12.0-16.0 [facility] Comment on above: Performed By: #### C BC #### [facility] [address] [place] [address] Dr. Ricky Valenzuela IG # 0.42 10e3/ul Critically high 0.00-0.03 [facility] Comment on above: Performed By: #### C BC #### [facility] [address] [place] [address] Dr. Ricky Valenzuela IG % 3.8 % Critically high 0.0-0.5 [facility] Comment on above: Performed By: #### C BC #### [facility] [address] [place] [address] Dr. Ricky Valenzuela LYMPH # 3.3 103/ul Normal 1.2-3.8 [facility] Comment on above: Performed By: #### C BC #### [facility] [address] [place] [address] Dr. Ricky Vlaenzuela Lymphocytes/100 WBC (Bld) 29.1 % Normal 20.5-60.0 [facility] Comment on above: Performed By: #### C BC #### [facility] [address] [place] [address] Dr. Ricky Valenzuela MANUAL DIFF REQ NO Normal [facility] Comment on above: Performed By: #### C BC #### [facility] [address] [place] [address] Dr. Ricky Valenzuela MCH (RBC) [Entitic mass] 32.4 pg Normal 26.7-34.0 [facility] Comment on above: Performed By: #### C BC #### [facility] [address] [address] [address] Ricky Valenzuela MCHC (RBC) [Mass/Vol] 32.5 g/dL Normal 29.9-35.2 [facility] Comment on above: Performed By: #### C BC #### [facility] [address] [address] [address] Ricky Valenzuela MCV (RBC) [Entitic vol] 99.5 fL Critically high 81.0-99.0 [facility] Comment on above: Performed By: #### C BC #### [facility] [address] [address] [address] Ricky Valenzuela MONO # 0.8 103/ul Normal 0.3-0.8 [facility] Comment on above: Performed By: #### C BC #### [facility] [address] [place] [address] Dr. Ricky Valenzuela Monocytes/100 WBC (Bld) 7.5 % Normal 1.7-12.0 [facility] Comment on above: Performed By: #### C BC #### [facility] [address] [place] [address] Dr. Ricky Valenzuela NEUT # 6.3 103/ul Normal 1.4-6.5 [facility] Comment on above: Performed By: #### C BC #### [facility] [address] [place] [address] Dr. Ricky Valenzuela Neutrophils/100 WBC (Bld) 56.7 % Normal 43.0-75.0 [facility] Comment on above: Performed By: #### C BC #### [facility] [address] [address] [address] Ricky Valenzuela Platelet mean volume (Bld) [Entitic vol] 9.8 fL Normal 9.5-13.5 [facility] Comment on above: Performed By: #### C BC #### [facility] [address] [address] [address] Ricky Valenzuela PLT 265 103/ul Normal 150-450 [facility] Comment on above: Performed By: #### C BC #### [facility] [address] [address] [address] Ricky Valenzuela RBC 4.17 106/ul Critically low 4.20-5.40 [facility] Comment on above: Performed By: #### C BC #### [facility] [address] [address] [address] Ricky Valenzuela WBC 11.2 103/ul Critically high 4.0-11.0 [facility] Comment on above: Performed By: #### C BC #### [facility] [address] [address] [address] Ricky Valenzuela GLYCOHEMOGLOBIN A1Con 2021 ADA RECOMMENDATION SEE BELOW Normal [facility] Comment on above: Result Comment: ADA RECOMMENDED LIMIT 4.0 - 6.0 ADA THERAPEUTIC TARGET < 7.0 ACTION SUGGESTED > 7.0 Performed By: #### A 1C ####[facility] [address] [place] [address]Dr. Ricky Valenzuela Glucose [Mass/Vol] 183 mg/dL Normal [facility] Comment on above: Performed By: #### A 1C ####[facility] [address] [place] [address]Dr. Ricky Valenzuela HbA1c (Bld) [Mass fraction] 8.0 % Critically high 4.5-6.2 [facility] Comment on above: Performed By: #### A 1C ####[facility] [address] [address]Dr. Ricky Valenzuela LIPID PROFILEon 08-09-2021 CHOL-HDL RATIO NORM SEE BELOW Normal [facility] Comment on above: Result Comment: 3.3 - 4.4 LOW RISK 4.4 - 7.1 AVERAGE RISK 7.1 - 11.0 MODERATE RISK >11.0 HIGH RISK Performed By: #### C MP, LIPID #### [facility] [address] [address] [address] Ricky Valenzuela Cholesterol [Mass/Vol] 239 mg/dL Critically high <=200 [facility] Comment on above: Performed By: #### C MP, LIPID #### [facility] [address] [address] [address] Ricky Valenzuela Cholesterol in HDL [Mass/Vol] 36 mg/dL Critically low 40-60 [facility] Comment on above: Performed By: #### C MP, LIPID #### [facility] [address] [address] [address] Ricky Valenzuela Cholesterol in LDL [Mass/Vol] 164.2 mg/dL Normal [facility] Comment on above: Performed By: #### C MP, LIPID #### [facility] [address] [address] [address] Ricky Valenzuela Cholesterol.total/Cho lesterol in HDL [Mass ratio] 6.6 {ratio} Normal [facility] Comment on above: Performed By: #### C MP, LIPID #### [facility] [address] [address] [address] Ricky Valenzuela HDL NORMAL > or = 60 mg/dl - LO W CARDIOVASCULAR RISK <40 mg/dl - HIGH CARDIOVASCULAR RISK Normal [facility] Comment on above: Performed By: #### C MP, LIPID #### [facility] [address] [address] [address] Ricky Valenzuela LDL CALC NORMAL SEE BELOW Normal [facility] Comment on above: Result Comment: <100 mg/dl OPTIMAL 100 - 129 mg/dl NEAR OR ABOVE OPTIMAL 130 - 159 mg/dl BORDERLINE HIGH 160 - 189 mg/dl HIGH >190 mg/dl VERY HIGH Performed By: #### C MP, LIPID #### [facility] [address] [address] [address] Ricky Valenzuela Triglyceride [Mass/Vol] 194 mg/dL Critically high <=150 [facility] Comment on above: Performed By: #### C MP, LIPID #### [facility] [address] [address] [address] Ricky Valenzuela VLDL CALC 38.8 mg/dL Normal [facility] Comment on above: Performed By: #### C MP, LIPID #### [facility] [address] [address] [address] Ricky Valenzuela MICROALBUMIN, RAND URon 06-2 mALB 13.1 mg/L Normal <=30.0 [facility] Comment on above: Performed By: #### M ALBR ####[facility] [address] [place] [address]Dr. Ricky Valenzuela PROF 14(COMP METB)on 022 Albumin [Mass/Vol] 3.3 g/dL Critically low 3.4-5.0 [facility] Comment on above: Performed By: #### C MP, LIPID #### [facility] [address] [place] [address] Dr. Ricky Valenzuela Albumin/Globulin [Mass ratio] 0.8 {ratio} Normal [facility] Comment on above: Performed By: #### C MP, LIPID #### [facility] [address] [place] [address] Dr. Ricky Valenzuela ALP [Catalytic activity/Vol] 93 U/L Normal 46-116 [facility] Comment on above: Performed By: #### C MP, LIPID #### [facility] [address] [place] [address] Dr. Ricky Valenzuela ALT [Catalytic activity/Vol] 37 U/L Normal 14-59 [facility] Comment on above: Performed By: #### C MP, LIPID #### [facility] [address] [place] [address] Dr. Ricky Valenzuela Anion gap [Moles/Vol] 10.9 mmol/L Normal [facility] Comment on above: Performed By: #### C MP, LIPID #### [facility] [address] [place] [address] Dr. Ricky Valenzuela AST [Catalytic activity/Vol] 10 U/L Critically low 15-37 [facility] Comment on above: Performed By: #### C MP, LIPID #### [facility] [address] [place] [address] Dr. Ricky Valenzuela Bilirubin [Mass/Vol] 0.2 mg/dL Normal 0.2-1.0 [facility] Comment on above: Performed By: #### C MP, LIPID #### [facility] [address] [place] [address] Dr. Ricky Valenzuela Calcium [Mass/Vol] 9.0 mg/dL Normal 8.5-10.1 [facility] Comment on above: Performed By: #### C MP, LIPID #### [facility] [address] [place] [address] Dr. Ricky Valenzuela Chloride [Moles/Vol] 100 mmol/L Normal 98-107 [facility] Comment on above: Performed By: #### C MP, LIPID #### [facility] [address] [place] [address] Dr. Ricky Valenzuela CO2 [Moles/Vol] 32.2 mmol/L Critically high 21.0-32.0 [facility] Comment on above: Performed By: #### C MP, LIPID #### [facility] [address] [place] [address] Dr. Ricky Valenzuela Creatinine [Mass/Vol] 0.95 mg/dL Normal 0.55-1.02 [facility] Comment on above: Performed By: #### C MP, LIPID #### [facility] [address] [place] [address] Dr. Ricky Valenzuela EGFR-AF BANGLADESHI >60 Normal >=60 [facility] Comment on above: Performed By: #### C MP, LIPID #### [facility] [address] [place] [address] Dr. Ricky Valenzuela EGFR-NON AF BANGLADESHI >60 Normal >=60 [facility] Comment on above: Performed By: #### C MP, LIPID #### [facility] [address] [place] [address] Dr. Ricky Valenzuela Globulin (S) [Mass/Vol] 4.2 g/dL Normal [facility] Comment on above: Performed By: #### C MP, LIPID #### [facility] [address] [place] [address] Dr. Ricky Valenzuela Glucose [Mass/Vol] 200 mg/dL Critically high 74-106 [facility] Comment on above: Performed By: #### C MP, LIPID #### [facility] [address] [place] [address] Dr. Ricky Valenzuela Potassium [Moles/Vol] 4.1 mmol/L Normal 3.5-5.1 [facility] Comment on above: Performed By: #### C MP, LIPID #### [facility] [address] [place] [address] Dr. Ricky Valenzuela Protein [Mass/Vol] 7.5 g/dL Normal 6.4-8.2 [facility] Comment on above: Performed By: #### C MP, LIPID #### [facility] [address] [place] [address] Dr. Ricky Valenzuela Sodium [Moles/Vol] 139 mmol/L Normal 136-145 [facility] Comment on above: Performed By: #### C MP, LIPID #### [facility] [address] [place] [address] Dr. Ricky Valenzuela Urea nitrogen [Mass/Vol] 13.0 mg/dL Normal 7.0-18.0 [facility] Comment on above: Performed By: #### C MP, LIPID #### [facility] [address] [place] [address] Dr. Ricky Valenzuela Urea nitrogen/Creatinine [Mass ratio] 13.7 mg/mg Normal [facility] Comment on above: Performed By: #### C MP, LIPID #### [facility] [address] [place] [address] Dr. Ricky Valenzuela POINT OF CARE GLUCOSEon 05 Glucose [Mass/Vol] 176 mg/dL Critically high 74-106 [facility] Comment on above: Performed By: #### P OCGLUC #### [facility] [address] [place] [address] Dr. Ricky Valenzuela Vital Signs Date Time Vital Sign Value Performing Clinician Facility 01-18-2023 09:10-0500 Body height 156.21 cm Elle Hendricks Other [facility] Other 01-18-2023 09:10-0500 Body mass index (BMI) [Ratio] 42.82 kg/m2 Elle Hendricks Other [facility] Other 01-18-2023 09:10-0500 Body temperature 98.2 [degF] Elle Hendricks Other [facility] Other 01-18-2023 09:10-0500 Body weight 104.51 kg Elle Hendricks Other [facility] Other 01-18-2023 09:10-0500 Diastolic blood pressure 92 mm[Hg] Elle Hendricks Other [facility] Other 01-18-2023 09:10-0500 Respiratory rate 18 /min Elle Hendricks Other [facility] Other 01-18-2023 09:10-0500 SaO2% (BldA) [Mass fraction] 97 % Elle Hendricks Other [facility] Other 01-18-2023 09:10-0500 Systolic blood pressure 145 mm[Hg] Elle Hendricks Other [facility] Other Encounters Encounter Date Encounter Type Care Provider Facility Start: 05-02-2023 End: 05-02-2023 ambulatory SHAIKH MARICEL Not Available Start: 04-30-2023 End: 04-30-2023 ambulatory [facility] Work Phone: Start: 04-30-2023 End: 04-30-2023 Patient encounter procedure [facility] Work Phone: Start: 03-21-2023 Orders Only Shaikh Maricel HOLLIS Work Phone: [facility] Comment on above: Diabetic polyneuropa thy associated with type 2 diabetes mellitus (CMS/HCC) (Primary Dx) Start: 03-19-2023 End: 03-19-2023 ambulatory Ana Luisa Curtis Other [facility] Other Start: 03-19-2023 Office outpatient vi sit 15 minutes Ana Luisa Calvey [facility] Start: 02-25-2023 End: 02-25-2023 ambulatory ELIDA GARCIA Not Available Start: 01-29-2023 End: 01-29-2023 ambulatory SHAIKH MARICEL Not Available Start: 01-23-2023 End: 01-23-2023 ambulatory Ana Luisa Curtis Other [facility] Other Start: 01-23-2023 Office outpatient vi sit 15 minutes Ana Luisa Julianoey [facility] Start: 01-18-2023 End: 01-18-2023 ambulatory Elle Hendricks Other [facility] Other Start: 01-18-2023 Office outpatient vi sit 15 minutes Elle Hendricks [facility] Start: 09-19-2022 End: 09-19-2022 ambulatory Ana Luisa Curtis Other [facility] Other Start: 09-19-2022 Telephone encounter Ana Luisa Curtis [facility] Start: 07-12-[address] JONATHAN EDWARDS Facili ty:[facility]1 Start: 06-07-2022 End: 06-08-[address] JONATHAN EDWARDS Facility:[facility] Start: 05-02-2022 End: 05-02-2022 ambulatory Ana Luisa Curtis Other [facility] Other Start: 05-02-2022 Office outpatient ne w 30 minutes Ana Luisa Curtis [facility] Start: 04-12-2022 End: 04-13-[address] JONATHAN EDWARDS Facility:[facility]1 Start: 03-08-2022 End: 03-09-[address] JONATHAN EDWARDS Facility:[facility] Start: 02-16-2022 End: 02-17-[address] JONATHAN EDWARDS Facility:[facility] Start: 02-09-2022 End: 02-10-[address] RICARDO HOLM . Facility:[facility] Start: 11-16-2021 End: 11-17-[address] JONATHAN EDWARDS Facility:[facility] Start: 11-01-2021 End: 11-02-2021 ambulatory CRYS PIERCE . Facility:[facility]1 Start: 08-30-2021 End: 08-31-2021 ambulatory NIKKIE BARCLAY [facility] Start: 08-30-2021 End: 08-30-2021 Subsequent hospital visit by physician [facility] DO Work Phone: [facility] Comment on above: Routine cervical sme ar Start: 08-16-2021 Encounter for genera l adult medical examination without abnormal findings DR RICARDO HOLM . [facility] Start: 08-09-2021 End: 08-10-2021 Encounter for [...] ion [Identifier] in Cervix by Cyto stain [facility] DO Work Phone: Plan of Treatment Date Care Activity Detail Author Start: 03-08-2026 Screening for malign ant neoplasm of colon [facility] Start: 08-30-2024 Screening for malign ant neoplasm of cervix [facility] Start: 03-20-2024 Screening for malign ant neoplasm of breast Mammogram [facility] Start: 02-27-2024 End: 02-27-2024 Patient encounter procedure 02/27/2024 11:35 AM EST Office Visit [facility] [address] [place] [address] Elida Garcia MD [address] [place] [address] [facility] Start: 02-12-2024 Glaucoma screening Diabetes: R etinopathy Screening [facility] Start: 08-11-2023 Influenza vaccination Influenza Vacc ine (#1) [facility] Comment on above: Postponed from 10/12 (Patient Refused) Start: 05-02-2023 End: 05-02-2023 Patient encounter procedure 05/02/2023 2:00 PM EDT Office Visit [facility] [address] [place] [id number] Shaikh Connelly MD [address] [place] [id number] [facility] Start: 02-17-2023 Hemoglobin A1c measurement Diabetes: Hemoglobin A1C [facility] Start: 09-04-2022 End: 09-04-2022 Patient encounter procedure 09/04/2022 Office Visit Obstetrics and Gynecology Nikkie Barclay, ANGEL - CRISTAL [address] [facility] [address] [place] [address] [facility] Start: 10-12-2021 Influenza vaccination Flu vaccine (# 1) [facility] Start: 10-21-2013 Screening for malign ant neoplasm of breast Breast cancer screen [facility] Start: 10-21-2013 Shingles vaccine (1 of 2) Shingles vaccine (1 of 2) [facility] Start: 10-21-2008 Screening for malign ant neoplasm of colon [facility] Start: 2003 Lipid panel Lipids [facility] Start: 10-21-1998 Diabetes screen Diabetes screen [facility] Start: 10-21-1993 Screening for malign ant neoplasm of cervix [facility] Start: 10-21-1982 DTaP/Tdap/Td vaccine (1 - Tdap) DTaP/Tdap/Td vaccine (1 - Tdap) [facility] [employer] [facility] Start: 10-21-1982 Urine screening for protein Diabetes: Urine Protein Screening [facility] Start: 10-21-1981 Hepatitis C screening Hepatitis C sc reen [facility] Start: 10-21-1978 HIV screening HIV screen [facility] Start: 1975 Depression Screen Depression Screen [facility] Start: 04-20-1964 COVID-19 Vaccine (#1) COVID-19 Vacci ne (#1) [facility] Start: 1965 Screening for malign ant neoplasm of colon [facility] End: 08-30-2021 Cytopathology procedure, preparation of smear, genital source [facility] Routine Routine cervical smear 1 Occurrences starting 08/30/2021 until 08/30/2021 [facility] Work Phone: Comment on above: 1 Occurrences starti ng 08/30/2021 until 08/30/2021 Immunizations Immunization Date Immunization Notes Care Provider Tima garcia 01-14-2017 influenza, injectabl e, quadrivalent, preservative free [facility] Payers Date Payer Category Payer Unknown [employer] [id number] 2022-Present [phone] [address] [address] [place] [address] [id number] 2012 Medicare MEDICARE MEDICAR E PART B [id number] 2012-[place] [address] Medicare [id number] 1963 Unknown [id number] 2.16.840.1.487438.3.579.2.17 3 1963 Unknown [id number] 2.16.840.1.589175.3.579.2.59 3 1963 Unknown [id number] 2.16.840.1.599204.3.579.2.59 3 1963 Unknown [id number] 2.16.840.1.196764.3.579.2.59 3 1963 Unknown [id number] 2.16.840.1.269190.3.579.2.59 3 1963 Unknown [id number] 2.16.840.1.894414.3.579.2.59 3 1963 Unknown [id number] 2.16.840.1.852370.3.579.2.59 3 1963 Unknown [id number] 2.16.840.1.682413.3.579.2.59 3 1963 Unknown [id number] 2.16.840.1.428183.3.579.2.59 3 1963 Unknown [id number] 2.16.840.1.170558.3.579.2.59 3 1963 Unknown [id number] 2.16.840.1.700595.3.579.2.59 3 1963 Unknown [id number] 2.16.840.1.319061.3.579.2.59 3 1963 Unknown [id number] 2.16.840.1.553182.3.579.2.59 3 1963 Unknown [id number] 2.16.840.1.478639.3.579.2.59 3 1963 Unknown [id number] 2.16.840.1.230723.3.579.2.59 3 1963 Unknown [id number] 2.16.840.1.099467.3.579.2.59 3 1963 Unknown [id number] 2.16.840.1.322607.3.579.2.59 3 1963 Unknown [id number] 2.16.840.1.910755.3.579.2.12 59 1963 Unknown [id number] 2.16.840.1.981646.3.579.2.12 59 1963 Unknown [id number] 2.16.840.1.432700.3.579.2.12 59 1959 Medicare [id number] 1.2.840.832999.1.13.239.2.7. 3.979601.315 1959 Unknown [id number] 1.2.840.239804.1.13.239.2.7. 3.101587.315 1959 Unknown [id number] 2.16.840.1.723362.19 Medicare Medicare [id number] Self-pay Self Pay [id number] Social History Date Type Detail Facility Start: 08-30-2021 Tobacco smoking stat [facility] Smokes tobacco daily [facility] Phone: History of tobacco use Cigarette Smoker [facility] [employer] Phone: Start: 08-30-2021 End: 01-29-2023 Tobacco use and exposure Smokeless tobacco non-user [facility] Phone: Start: 08-30-2021 Alcohol intake Current drinke r of alcohol (finding) [facility] Phone: Start: 08-30-2021 History SDOH Alcohol Comment occasional [facility] Phone: Start: 1965 Sex Assigned At Not on file [facility] [employer] [facility] Phone: Start: 08-20-2021 End: 08-30-2021 Exposure to SARS-CoV-2 (event) Not sure Drive[facility] Start: 02-25-2023 Sex Assigned At [facility] Other Start: 01-23-2023 End: 01-29-2023 Tobacco smoking status [facility] Ex-smoker [facility] History of tobacco use Current smoker [facility] Start: 01-29-2023 End: 02-25-2023 Cigarettes smoked current (pack per day) - Reported 0.5 [facility] Start: 02-25-2023 Alcohol intake Lifetime non-d gus (finding) [facility] Start: 1965 Sex Assigned At Female F [facility] Medical Equipment Procedure Code Equipment Code Equipment Origin al Text Equipment Identifier Dates USE TO TEST BLOO D SUGAR TWICE DAILY [id number] Start: 06-08-2021 Clinical Notes 06-20-2021 to 03-19-2023 [...] Mar, Left hand pain (ICD-10 - M79.642) [facility] Other 12-13-2023 Evaluation note* Encounter Date Diagnosis [...] noted. Patient will f/u in 4 weeks. [facility] Other 12-08-2023 Evaluation note* Encounter Date Diagnosis [...] left hand x-ray that was performed at [facility] which revealed degenerative changes in the hand as well as a remote avulsion fracture of the thumb. Patient states her family doctor is treating her for gout in her hand. Jan, History of gout (ICD-10 - Z87.39) Jan, Other Gout material w as printed [facility] Other 08-09-2023 Evaluation note* Encounter Date Diagnosis Assessment Notes Treatment Notes Treatment Clinical Notes Sep, Right wrist pain (ICD-10 - M25.531) [facility] Other 04-27-2023 NoteCONSULTATION CONSULTATION DATE: 06/07/2022 TO: [...] our patients to inform us about any rboh-yal-kjjgxdd medications or herbal remedies/nutritional supplements/alternative remedies. 2. [...] treatment options with their primary care provider.[facility] [id number] Evaluation note * Encounter Date Diagnosis Assessment [...] understanding and is agreeable to treatment plan. [facility] Other 01-26-2023 NoteCONSULTATION PROCEDURE DATE: 03/08/2022 PREOPERATIVE [...] will be followed up in the clinic.[facility] [id number] NotePROCEDURE: XR KNEE LT 4V or > [...] authenticated by: PATTIE SALTER Date: 2022-02-16 11:29[facility] [id number] NoteCONSULTATION CONSULTATION DATE: 02/09/2022 HISTORY OF PRESENT [...] office today. Patient agrees with this plan.[facility] [id number] NotePROCEDURE: XR WRIST RT MIN 3 V COMPARISON: None. HISTORY: Injury of right wrist FINDINGS: BONES:No acute fracture or dislocation. Corticated bone fragment identified along the first carpometacarpal joint [degenerative in nature SOFT TISSUES:Moderate diffuse soft tissue swelling EFFUSION:None visible. OTHER: Negative. IMPRESSION: Soft tissue swelling, no acute fracture Electronically authenticated by: RYAN GOLDMAN Date: 2021-11-16 18:59[facility] [id number] NoteCONSULTATION CONSULTATION DATE: 11/01/2021 HISTORY OF PRESENT [...] otherwise indicated. Patient agrees with this plan.[facility] [id number] NoteCONSULTATION PROCEDURE DATE: 11/01/2021 PRE AND POSTOPERATIVE [...] will be followed up in the clinic.[facility] [id number] NoteCONSULTATION PROCEDURE DATE: 08/09/2021 PREOPERATIVE DIAGNOSIS: Bilateral [...] will be followed up in the clinic. [facility] Signed and Approved by: CRYS PIERCE . 08/10/2021 13:37:00[facility]06-08-2022 NoteCONSULTATION CONSULTATION DATE: 07/19/2021 HISTORY [...] injections. Patient acknowledges and all questions answered. [facility] Signed and Approved by: CRYS PIERCE . 07/20/2021 10:33:00[facility]05-25-2022 NotePROCEDURE: XR FOOT RT MIN [...] Electronically authenticated by: PATTIE SALTER Date: 2021-07-05 11:11[facility]05-10-2022 NoteCONSULTATION CONSULTATION DATE: 06/20/2021 CHIEF [...] like to proceed. CC: Jonathan Edwards M.D. [facility] Signed and Approved by: DR RICARDO HOLM . 06/27/2021 10:40:00[facility]* Diagnosis Routine cervical smear Screening for malignant neoplasm of the cervix documented in this encounter [facility] Work Phone: evaluation note* Diagnosis Diabetic polyneuropathy associated with type 2 diabetes mellitus (CMS/HCC)- Primary documented in this encounter [facility] HealthcareEvaluation noteNo assessment information [facility] Work Phone: History general Narrative - Reported* Type Description Date Medical History GERD (gastroesophageal reflux di sease) Medical History Migraine headache Medical History Arthritis Medical History Edema of both legs Medical History Diabetes mellitus, type 2 Medical History Chronic back pain Surgical History ablasion Surgical History back surgery Surgical History hysterectomy Surgical History tubal ligation Hospitalization History see above [facility] Other Summary Purpose Family History No Family [...] Care Teams (unrecognized sec tion and content) [employer] Relationship Specialty Start Date End Date Sr Jonathan Edwards DO [address] [place] [address] PCP - General Family Medicine 08/30/21 [employer] Relationship Specialty Start Date End Date Shaikh [...] DATE CREATED AUTHOR AUTHOR'S ORGANIZ ATION 05/04/2023 [facility] EPIC REASON FOR [...] BE BASED ON THE PRIMARY CLINICAL RECORDS. [facility]. provides no warranty or guarantee of the accuracy or completeness of information in this document.
[2023-06-08 14:46] VITALS: BP 144/88; PULSE 101; TEMP 36.7; O2SAT 96; BMI 42.1
--- NOTE | 2023-06-08 14:50 | XR_ITS ---
The [address] [address] Patient Name: KARINA DE OLIVEIRA MRN: [id number] date: 1965 Sex: F Assigned Patient Location: ER Current Patient Location: ER Accession/Order Number: [id number] Exam Date: 06/08/2023 15:10 Report Date: 06/08/2023 15:51 At the request of: OLIVE MENDOZA Procedure: XR foot LT min 3V EXAM: XR foot LT min 3V HISTORY: fall with foot under patient COMPARISON: None. TECHNIQUE: AP, oblique, lateral x-ray left foot. FINDINGS: Nondisplaced horizontal fracture through base of fifth metatarsal. Does not appear to extend to the joint articular surface. Oblique fracture shaft of second metatarsal just distal to the midline. Highly displaced. [place] lateral and dorsal angulation. Lucency through the base of the fifth toe metatarsal could be minimal fracture along the medial aspect. Nondisplaced. There are periarticular calcifications and degenerative changes at the adjacent joint. Lucency in the medial cuneiform on the AP view nonspecific, no definite cortical break seen. Hairline fracture not excluded. . The phalanges are intact without fracture. Dorsal and plantar soft tissue swelling at the metatarsal level. Periarticular calcification and degenerative changes seen in the midfoot especially around the first and second toe area. Prominent plantar calcaneal spur. XR/XR foot LT min 3V IMPRESSION: 1. Base of fifth metatarsal fracture nondisplaced. 2. Fracture shaft second metatarsal with angulation and mild displacement. 3. Question minimal fracture base of the first metatarsal at the tarsometatarsal joint. Degenerative changes also seen in this joint with periarticular calcifications. 4. Hairline lucency in the medial cuneiform on the AP view is nonspecific without definite cortical step off. Minimal hairline fracture not excluded. 5. Dorsal and plantar soft tissue swelling. 6. Degenerative changes elsewhere. Electronically authenticated by: SAIRA RUSSELL Date: 06/08/2023 15:51
--- NOTE | 2023-06-08 14:50 | XR_ITS ---
The [address] [address] Patient Name: KARINA DE OLIVEIRA MRN: [id number] date: 1965 Sex: F Assigned Patient Location: ER Current Patient Location: ER Accession/Order Number: [id number] Exam Date: 06/08/2023 15:10 Report Date: 06/08/2023 15:54 At the request of: OLIVE MENDOZA Procedure: XR knee SALINA 4V IMAGES REVIEWED: XR knee SALINA 4V COMPARISON: 02/16/2022 x-ray left knee. CLINICAL INDICATION: fall to knee include sunrise FINDINGS/IMPRESSION: Acute comminuted fracture of the left proximal fibula demonstrating approximately 5 mm displacement. Question age-indeterminate nondisplaced fracture of a left superior patellar osteophyte which appears new compared to prior x-ray left knee from 02/16/2022. No radiographic evidence of acute osseous abnormality of the right knee. No significant effusions. Moderate-severe osteoarthritis of bilateral knees, particularly severe involving bilateral patellofemoral compartments with chronic nonunited right suprapatellar osteophyte again seen. Electronically authenticated by: NILO MARRERO Date: 06/08/2023 15:54
--- NOTE | 2023-06-08 14:57 | ECG_ITS ---
The [facility] Test Date: 2023-06-08 Pat Name: KARINA DE OLIVEIRA Department: Room: - Gender: Female [employer] Assistant: : 1965 Requested By: SHAIKH ELY Order Number: [id number] Reading MD: VIRGINIA PACHECO Measurements Intervals [place] Rate: 100 P: 69 LA: 170 QRS: 266 QRSD: 80 T: 58 QT: 326 QTc: 383 Interpretive Statements 1102 Sinus arrhythmia 1120 Sinus tachycardia 5130 Right ventricular hypertrophy 8003 Consistent with pulmonary disease 9150 abnormal ECG Compared to ECG 01/12/2017 16:53:36 Right ventricular hypertrophy now present Sinus rhythm no longer present Intraventricular conduction delay no longer present Left anterior fascicular block no longer present Electronically Signed On 06-09-2023 7:12:35 EDT by VIRGINIA PACHECO
[2023-06-08] MEDS: HYDROCODONE/ACET 5-325 MG TABLET 1 TAB PO (15:11)
[2023-06-08] MEDS: ONDANSETRON 4 MG RAPDIS TABLET SL (15:11)
[2023-06-08 15:43] VITALS: PULSE 100
--- NOTE | 2023-06-08 15:58 | XR_ITS ---
The [place] [id number] Patient Name: KARINA DE OLIVEIRA MRN: [id number] date: 1965 Sex: F Assigned Patient Location: ER Current Patient Location: ED.MAIN Accession/Order Number: [id number] Exam Date: 06/08/2023 17:15 Report Date: 06/08/2023 18:14 At the request of: SAMAN CUENCA Procedure: XR femur LT 2V EXAM: XR femur LT 2V HISTORY: fall COMPARISON: Left knee, left lower lobe x-ray 06/08/2023. Left hip x-ray 08/03/2019. Left knee x-ray 10/26/2016. TECHNIQUE: AP lateral left femur hip to knee. FINDINGS: No acute femur fracture seen. Left hip joint space maintained without narrowing. Calcification adjacent to greater trochanter appear chronic and unchanged. If fracture of the proximal fibula at the knee described on subsequent x-rays. Dental femoral DJD also describes separately. No suspicious focal bone lesion. XR/XR femur LT 2V IMPRESSION: Negative for femur fracture. Fracture proximal fibula at the knee see separate dictation knee x-ray and lower leg x-ray. Electronically authenticated by: SAIRA RUSSELL Date: 06/08/2023 18:14
--- NOTE | 2023-06-08 15:58 | XR_ITS ---
[facility] [place] [id number] Patient Name: KARINA DE OLIVEIRA MRN: [id number] date: 1965 Sex: F Assigned Patient Location: ER Current Patient Location: ER Accession/Order Number: [id number] Exam Date: 06/08/2023 17:15 Report Date: 06/08/2023 18:21 At the request of: SAMAN CUENCA Procedure: XR tibia fibula LT 2V EXAM: XR tibia fibula LT 2V HISTORY: pain COMPARISON: Left knee x-ray, left femur, left foot x-ray 06/08/2023. Left knee x-ray 02/16/2022. TECHNIQUE: AP lateral left lower leg knee to ankle. FINDINGS: A new fracture of the proximal fibula at the knee with the proximal 5 mm displacement of the distal shaft relative to the proximal fragments. No definite step off at the tibiofibular joint at the knee. Excite hairline lucency at the base of a osteophyte off the superior patella could reflect a minimal fracture, new from previous. Probable joint effusion at the knee. Degenerative changes at the knee with mild spurring. No definite plateau fracture. Lower leg otherwise unremarkable. No distal fracture seen visualized ankle negative. No fracture described on separate foot x-ray. XR/XR tibia fibula LT 2V IMPRESSION: 1. Proximal fibular fracture or bony. Question fractures of the superior patellar osteophyte at the knee. Subsequently x-ray report. 2. No other lower leg fracture seen. 3. Foot fracture described on separate foot x-ray report. Electronically authenticated by: SAIRA RUSSELL Date: 06/08/2023 18:21
--- NOTE | 2023-06-08 15:58 | CT_ITS ---
The [address] [address] Patient Name: KARINA DE OLIVEIRA MRN: [id number] date: 1965 Sex: F Assigned Patient Location: ER Current Patient Location: MS Accession/Order Number: [id number] Exam Date: 06/08/2023 17:15 Report Date: 06/08/2023 18:29 At the request of: SAMAN CUENCA Procedure: CT foot LT wo con IMAGES REVIEWED: CT foot LT wo con COMPARISON: Same day x-rays. CLINICAL INDICATION: pain Technique: Multiplanar CT images of the left foot without contrast. Dose reduction techniques were achieved by using automated exposure control and/or adjustment of mA and/or kV according to patient size and/or use of iterative reconstruction technique. FINDINGS: Acute very severe Lisfranc midfoot fracture-dislocation injury of the midfoot. Acute highly comminuted intra-articular displaced fracture of the first cuneiform and acute comminuted intra-articular fracture of the first metatarsal base with dorsal dislocation/subluxation of the first metatarsal base relative to the first cuneiform. In particular there is a highly comminuted fracture of the first cuneiform in the region of the Lisfranc ligament attachment with widening between the fractured first cuneiform and second metatarsal base consistent with Lisfranc injury. Acute intra-articular mildly displaced fractures of the second and third cuneiforms. Acute intra-articular mildly comminuted mildly displaced fractures of the third, fourth, fifth metatarsal bases. Acute fracture of the mid second metatarsal shaft demonstrating apex lateral angulation. CT/CT foot LT wo con IMPRESSION: Acute very severe Lisfranc midfoot fracture-dislocation injury of the midfoot as detailed above. Electronically authenticated by: NILO MARRERO Date: 06/08/2023 18:29
--- NOTE | 2023-06-08 16:02 | ED_ITS ---
Documented by User: Anahi Luisey 06/08/23 18:03 HPI HPI - Extremity Injury (Lower) General Chief Complaint: Extremity Injury, Lower Stated Complaint: FELL LEFT FOOT Time Seen by Provider: 06/08/23 14:53 Source: patient and family Mode of arrival: Wheelchair History of Present Illness HPI Narrative: 57-year-old female presents here with chief complaint of fall. Patient states her knees gave out while walking to the bathroom she landed on her knee and foot underneath. She states she twisted her left foot. Patient denies loss consciousness. Denies any chest pain or dizziness. She states the injury occurred just prior to arrival. She is unable to bear weight complains of left ankle foot and knee pain. Related Data Home Medications ?Medication ?Instructions ?Recorded ?Confirmed alendronate 70 mg tablet 70 mg PO QWEEK 07/20/22 06/08/23 allopurinol 300 mg tablet 300 mg PO DAILY 07/20/22 06/08/23 aspirin 81 mg tablet,delayed 81 mg PO DAILY 07/20/22 06/08/23 release (Adult Aspirin Regimen) baclofen 10 mg tablet 10 mg PO TID 07/20/22 06/08/23 cholecalciferol (vitamin D3) 25 1,000 unit PO DAILY 07/20/22 06/08/23 mcg (1,000 unit) capsule diclofenac sodium 75 mg 75 mg PO BID 07/20/22 06/08/23 tablet,delayed release divalproex 500 mg tablet,delayed 500 mg PO BID 07/20/22 06/08/23 release (Depakote) glucosamine [id number]-M1-Ossfsfrho 1 tab PO DAILY 07/20/22 06/08/23 krzysztof 1,500 mg-400 unit-100 mg tablet (Osteo Bi-Flex (5-Loxin)) glyburide 1.25 mg tablet 1.25 mg PO DAILY 07/20/22 06/08/23 hydrochlorothiazide 25 mg tablet 25 mg PO DAILY 07/20/22 06/08/23 lactobacillus combo no.13 1 1 cap PO DAILY 07/20/22 06/08/23 billion cell capsule,delayed release (Probiotic Pearls Complete) multivitamin 1 tab PO DAILY 07/20/22 06/08/23 oxycodone-acetaminophen 5 mg-325 1 tab PO DAILY 07/20/22 06/08/23 mg tablet prasterone (dhea) 50 mg capsule 50 mg PO DAILY 07/20/22 06/08/23 (DHEA) pregabalin 50 mg capsule (Lyrica) 50 mg PO TID 07/20/22 06/08/23 famotidine 20 mg tablet 20 mg PO BID 06/08/23 06/08/23 metformin 1,000 mg tablet 1,000 mg PO BID 06/08/23 06/08/23 rizatriptan 10 mg tablet 10 mg PO Q2H PRN migraine headache 06/08/23 06/08/23 rosuvastatin 20 mg tablet 20 mg PO DAILY 06/08/23 06/08/23 semaglutide 0.25 mg or 0.5 mg (2 0.25 mg subcut .once a week 06/08/23 06/08/23 mg/3 mL) subcutaneous pen injector (Ozempic) Previous Rx's ?Medication ?Instructions ?Recorded methocarbamol 750 mg tablet 750 mg PO .QHS #30 tabs 05/22/23 oxycodone-acetaminophen 5 mg-325 1 tab PO DAILY PRN pain #30 tabs 05/22/23 mg tablet (Percocet) Allergies Allergy/AdvReac Type Severity Reaction Status Date / Time No Known Drug Allergies Allergy Verified 10/30/22 07:18 Opioid HPI Opioid Management Most Recent Pain and Opioid Data: Last Pain Scale 9 06/08/23 20:42 Last Pain Assessment 06/08/23 21:00 Last ED Pain Assessment 06/08/23 18:00 Last ORT Total Score 0 06/08/23 18:51 Last ORT Risk Category Low Risk 06/08/23 18:51 Review of Systems ROS Narrative All Systems are negative except as noted/marked.All systems reviewed and otherwise negative [facility] Medical History Acid reflux ?K21.9 - Gastro-esophageal reflux disease without esophagitis (ICD-10) Back pain ?M54.9 - Dorsalgia, unspecified (ICD-10) Diabetes ?E11.9 - Type 2 diabetes mellitus without complications (ICD-10) Heartburn ?R12 - Heartburn (ICD-10) Neck pain ?M54.2 - Cervicalgia (ICD-10) Obesity ?E66.9 - Obesity, unspecified (ICD-10) Osteoarthritis ?M19.90 - Unspecified osteoarthritis, unspecified site (ICD-10) Smoker ?F17.200 - Nicotine dependence, unspecified, uncomplicated (ICD-10) TMJ (dislocation of temporomandibular joint) ?S03.00XA - Dislocation of jaw, unspecified side, initial encounter (ICD-10) Tubal ?O00.109 - Unspecified tubal without intrauterine (ICD- 10) Upper back pain ?M54.9 - Dorsalgia, unspecified (ICD-10) Surgical History H/O: hysterectomy ?Z90.710 - Acquired absence of both cervix and uterus (ICD-10) S/P lumbar spine operation ?Z98.890 - Other specified postprocedural states (ICD-10) Family History (Updated 06/08/23 @ 19:39 by Tere Sun) Mother Family history of CHF (congestive heart failure) Family history of cancer Family history of diabetes mellitus Family history of hypertension Family history of myocardial infarction Social History (Updated 06/08/23 @ 19:41 by Tere Sun) Within the past year, how often did you have a drink containing alcohol: monthly or less Smoking status: Light tobacco smoker Non-prescribed substance use: denies use Previous occupational history: retired/disability Highest level of school completed/degree received: some college, no degree Are you now , , , , never or living with a partner: In a typical week, how many times do you talk on the telephone with family, friends, or neighbors: 3 or more times per week How often do you get together with friends or relatives: 3 or more times per week How often do you attend catholic or worship services: never Little interest or pleasure in doing things: not at all Feeling down, depressed, or hopeless: not at all Feel stressed/tense/nervous/anxious/difficulty sleeping: not at all Do you think of yourself as: straight/heterosexual Gender Identity: female Exam Narrative Exam Narrative: All Systems are negative except as noted/marked.All systems reviewed and otherwise negative Nurses note and vital signs reviewed and patient is not hypoxic. General: The patient appears well and in no apparent distress. Patient is resting comfortably on cart. Skin: Warm, dry, no pallor noted. There is no rash noted. Head: Normocephalic, atraumatic Eye: Normal conjunctiva, no drainage, EOMI. PERRL Ears, Nose, Mouth, and Throat: oral mucosa is moist. Nares patent. Mouth without vesicles. Ear canals patent. Tm's without Erythema Cardiovascular: Regular Rate and Rhythm Respiratory: Patient is in no distress, no accessory muscle use, lungs are clear to auscultation, no wheezing, rales or rhonchi Back: non-tender, no CVA tenderness bilaterally to percussion. Musculoskeletal: left foot swelling to volar surface, neurovascularly intact to distal extremities, left knee pain, no obvious dislocation. remainder of extremities unremarkable Neurological: A&O x4, normal speech Psychiatric: Cooperative Constitutional Vital Signs, click to edit/add: Last Vital Signs Temp 98.1 F 06/08/23 14:46 Pulse 101 H 06/08/23 14:46 Resp 15 06/08/23 14:46 BP 144/88 H 06/08/23 14:46 Pulse Ox 96 06/08/23 14:46 O2 Del Method Room Air 06/08/23 14:46 Course Vital Signs Vital signs: Vital Signs Temperature 98.1 F 06/08/23 14:46 Pulse Rate 101 H 06/08/23 14:46 Respiratory Rate 15 06/08/23 14:46 Blood Pressure 144/88 H 06/08/23 14:46 Pulse Oximetry 96 06/08/23 14:46 Oxygen Delivery Method Room Air 06/08/23 14:46 Temperature 98.1 F 06/08/23 14:46 Pulse Rate 101 H 06/08/23 14:46 Respiratory Rate 15 06/08/23 14:46 Blood Pressure 144/88 H 06/08/23 14:46 Pulse Oximetry 96 06/08/23 14:46 Oxygen Delivery Method Room Air 06/08/23 14:46 MDM - Extremity Injury (Lower) MDM Narrative Medical decision making narrative: 57-year-old female presents here with chief complaint of fall. Patient states her knees gave out while walking to the bathroom she landed on her knee and foot underneath. She states she twisted her left foot. Patient denies loss consciousness. Denies any chest pain or dizziness. She states the injury occurred just prior to arrival. She is unable to bear weight complains of left ankle foot and knee pain. Note showed patient has multiple fractures to her left foot and also left fibula. CT scan is currently pending. Patient is unable to bear weight or use crutches. She will be admitted to the hospital due to inability to ambulate. Dr. Rendon agreed to admit this patient with consult to Dr. Jefferson. Agrees with plan of care. Patient had been medicated here with [place]. She denies the need for other pain medicine at this time. Blood work and EKG were also performed. Blood work is currently pending IV was established. Patient is stable. She may be admitted to [facility] long posterior splint placed, extremities is neurovascularly intact before and after application. Differential Diagnosis Differential diagnosis: Likely ankle sprain and strain, acute internal derange ment of knee, fracture of toe and ankle fracture Medical Records Attestation: I reviewed the patient's medical records. Lab Data Attestation: I reviewed the patient's lab results. Imaging Data foot: Attestation: I personally reviewed and interpreted this imaging study as follows: Radiologist's impression: ITS Impressions Foot X-Ray 06/08/23 14:50 IMPRESSION: 1. Base of fifth metatarsal fracture nondisplaced. 2. Fracture shaft second metatarsal with angulation and mild displacement. 3. Question minimal fracture base of the first metatarsal at the tarsometatarsal joint. Degenerative changes also seen in this joint with periarticular calcifications. 4. Hairline lucency in the medial cuneiform on the AP view is nonspecific without definite cortical step off. Minimal hairline fracture not excluded. 5. Dorsal and plantar soft tissue swelling. 6. Degenerative changes elsewhere. Electronically authenticated by: SAIRA RUSSELL Date: 06/08/2023 15:51 CT scan - pelvis: Radiologist's impression: ITS Impressions Foot X-Ray 06/08/23 14:50 IMPRESSION: 1. Base of fifth metatarsal fracture nondisplaced. 2. Fracture shaft second metatarsal with angulation and mild displacement. 3. Question minimal fracture base of the first metatarsal at the tarsometatarsal joint. Degenerative changes also seen in this joint with periarticular calcifications. 4. Hairline lucency in the medial cuneiform on the AP view is nonspecific without definite cortical step off. Minimal hairline fracture not excluded. 5. Dorsal and plantar soft tissue swelling. 6. Degenerative changes elsewhere. Electronically authenticated by: SAIRA RUSSELL Date: 06/08/2023 15:51 Femur X-Ray 06/08/23 15:58 IMPRESSION: Negative for femur fracture. Fracture proximal fibula at the knee see separate dictation knee x-ray and lower leg x-ray. Electronically authenticated by: SAIRA RUSSELL Date: 06/08/2023 18:[address] 06/08/23 15:58 IMPRESSION: Acute very severe Lisfranc midfoot fracture-dislocation injury of the midfoot as detailed above. Electronically authenticated by: NILO MARRERO Date: 06/08/2023 18:29 Tibia/Fibula X-Ray 06/08/23 15:58 IMPRESSION: 1. Proximal fibular fracture or bony. Question fractures of the superior patellar osteophyte at the knee. Subsequently x-ray report. 2. No other lower leg fracture seen. 3. Foot fracture described on separate foot x-ray report. Electronically authenticated by: SAIRA RUSSELL Date: 06/08/2023 18:21 Chest X-Ray 06/08/23 16:41 Impression: No radiographic evidence of acute cardiopulmonary process. Electronically authenticated by: PADMINI PRICE Date: 06/08/2023 18:21 Discharge Plan Discharge Chief Complaint: Extremity Injury, Lower Clinical Impression: Fracture of foot, Closed fibular fracture Patient Disposition: Admitted as Observation Time of Disposition Decision: 18:03 Condition: Good Discharge Date/Time: 06/08/23 18:20 Documented by User: Danny De La Torre MD 06/08/23 21:20 HPI HPI - Extremity Injury (Lower) General Chief Complaint: Extremity Injury, Lower Stated Complaint: FELL LEFT FOOT Time Seen by Provider: 06/08/23 14:53 Related Data Home Medications ?Medication ?Instructions ?Recorded ?Confirmed alendronate 70 mg tablet 70 mg PO QWEEK 07/20/22 06/08/23 allopurinol 300 mg tablet 300 mg PO DAILY 07/20/22 06/08/23 aspirin 81 mg tablet,delayed 81 mg PO DAILY 07/20/22 06/08/23 release (Adult Aspirin Regimen) baclofen 10 mg tablet 10 mg PO TID 07/20/22 06/08/23 cholecalciferol (vitamin D3) 25 1,000 unit PO DAILY 07/20/22 06/08/23 mcg (1,000 unit) capsule diclofenac sodium 75 mg 75 mg PO BID 07/20/22 06/08/23 tablet,delayed release divalproex 500 mg tablet,delayed 500 mg PO BID 07/20/22 06/08/23 release (Depakote) glucosamine [id number]-E7-Wbkcctzzl 1 tab PO DAILY 07/20/22 06/08/23 krzysztof 1,500 mg-400 unit-100 mg tablet (Osteo Bi-Flex (5-Loxin)) glyburide 1.25 mg tablet 1.25 mg PO DAILY 07/20/22 06/08/23 hydrochlorothiazide 25 mg tablet 25 mg PO DAILY 07/20/22 06/08/23 lactobacillus combo no.13 1 1 cap PO DAILY 07/20/22 06/08/23 billion cell capsule,delayed release (Probiotic Pearls Complete) multivitamin 1 tab PO DAILY 07/20/22 06/08/23 oxycodone-acetaminophen 5 mg-325 1 tab PO DAILY 07/20/22 06/08/23 mg tablet prasterone (dhea) 50 mg capsule 50 mg PO DAILY 07/20/22 06/08/23 (DHEA) pregabalin 50 mg capsule (Lyrica) 50 mg PO TID 07/20/22 06/08/23 famotidine 20 mg tablet 20 mg PO BID 06/08/23 06/08/23 metformin 1,000 mg tablet 1,000 mg PO BID 06/08/23 06/08/23 rizatriptan 10 mg tablet 10 mg PO Q2H PRN migraine headache 06/08/23 06/08/23 rosuvastatin 20 mg tablet 20 mg PO DAILY 06/08/23 06/08/23 semaglutide 0.25 mg or 0.5 mg (2 0.25 mg subcut .once a week 06/08/23 06/08/23 mg/3 mL) subcutaneous pen injector (Ozempic) Previous Rx's ?Medication ?Instructions ?Recorded methocarbamol 750 mg tablet 750 mg PO .QHS #30 tabs 05/22/23 oxycodone-acetaminophen 5 mg-325 1 tab PO DAILY PRN pain #30 tabs 05/22/23 mg tablet (Percocet) Allergies Allergy/AdvReac Type Severity Reaction Status Date / Time No Known Drug Allergies Allergy Verified 10/30/22 07:18 Opioid HPI Opioid Management Most Recent Pain and Opioid Data: Last Pain Scale 9 06/08/23 20:42 Last Pain Assessment 06/08/23 21:00 Last ED Pain Assessment 06/08/23 18:00 Last ORT Total Score 0 06/08/23 18:51 Last ORT Risk Category Low Risk 06/08/23 18:51 PFSH PFSH Medical History Acid reflux ?K21.9 - Gastro-esophageal reflux disease without esophagitis (ICD-10) Back pain ?M54.9 - Dorsalgia, unspecified (ICD-10) Diabetes ?E11.9 - Type 2 diabetes mellitus without complications (ICD-10) Heartburn ?R12 - Heartburn (ICD-10) Neck pain ?M54.2 - Cervicalgia (ICD-10) Obesity ?E66.9 - Obesity, unspecified (ICD-10) Osteoarthritis ?M19.90 - Unspecified osteoarthritis, unspecified site (ICD-10) Smoker ?F17.200 - Nicotine dependence, unspecified, uncomplicated (ICD-10) TMJ (dislocation of temporomandibular joint) ?S03.00XA - Dislocation of jaw, unspecified side, initial encounter (ICD-10) Tubal ?O00.109 - Unspecified tubal without intrauterine (ICD- 10) Upper back pain ?M54.9 - Dorsalgia, unspecified (ICD-10) Surgical History H/O: hysterectomy ?Z90.710 - Acquired absence of both cervix and uterus (ICD-10) S/P lumbar spine operation ?Z98.890 - Other specified postprocedural states (ICD-10) Family History (Updated 06/08/23 @ 19:39 by Tere Sun) Mother Family history of CHF (congestive heart failure) Family history of cancer Family history of diabetes mellitus Family history of hypertension Family history of myocardial infarction Social History (Updated 06/08/23 @ 19:41 by Tere Sun) Within the past year, how often did you have a drink containing alcohol: monthly or less Smoking status: Light tobacco smoker Non-prescribed substance use: denies use Previous occupational history: retired/disability Highest level of school completed/degree received: some college, no degree Are you now , , , , never or living with a partner: In a typical week, how many times do you talk on the telephone with family, friends, or neighbors: 3 or more times per week How often do you get together with friends or relatives: 3 or more times per week How often do you attend catholic or worship services: never Little interest or pleasure in doing things: not at all Feeling down, depressed, or hopeless: not at all Feel stressed/tense/nervous/anxious/difficulty sleeping: not at all Do you think of yourself as: straight/heterosexual Gender Identity: female Exam Constitutional Vital Signs, click to edit/add: Last Vital Signs Temp 98.1 F 06/08/23 14:46 Pulse 101 H 06/08/23 14:46 Resp 15 06/08/23 14:46 BP 144/88 H 06/08/23 14:46 Pulse Ox 96 06/08/23 14:46 O2 Del Method Room Air 06/08/23 14:46 Course Vital Signs Vital signs: Vital Signs Temperature 98.1 F 06/08/23 14:46 Pulse Rate 101 H 06/08/23 14:46 Respiratory Rate 15 06/08/23 14:46 Blood Pressure 144/88 H 06/08/23 14:46 Pulse Oximetry 96 06/08/23 14:46 Oxygen Delivery Method Room Air 06/08/23 14:46 Temperature 98.1 F 06/08/23 14:46 Pulse Rate 101 H 06/08/23 14:46 Respiratory Rate 15 06/08/23 14:46 Blood Pressure 144/88 H 06/08/23 14:46 Pulse Oximetry 96 06/08/23 14:46 Oxygen Delivery Method Room Air 06/08/23 14:46 MDM - Extremity Injury (Lower) MDM Narrative Medical decision making narrative: 57-year-old female presents here with chief complaint of fall. Patient states her knees gave out while walking to the bathroom she landed on her knee and foot underneath. She states she twisted her left foot. Patient denies loss consciousness. Denies any chest pain or dizziness. She states the injury occurred just prior to arrival. She is unable to bear weight complains of left ankle foot and knee pain. Note showed patient has multiple fractures to her left foot and also left fibula. CT scan is currently pending. Patient is unable to bear weight or use crutches. She will be admitted to the hospital due to inability to ambulate. Dr. Rendon agreed to admit this patient with consult to Dr. Jefferson. Dr Jefferson is aware of admission. Patient has no signs of foot drop. Agrees with plan of care. Patient had been medicated here with [place]. She denies the need for other pain medicine at this time. Blood work and EKG were also performed. Blood work is currently pending IV was established. Patient is stable. She may be admitted to Med Surg long posterior splint placed, extremities is neurovascularly intact before and after application. Splint was assisted with . the patient was neurovascularly intact before and after the splint was placed. the affected bones/injured area had proper alignment in a splint. Education on splint care at home was given at bedside. Patient and family have no questions at discharge. Patient had no signs of foot drop before after splint was placed. Imaging Data foot: Radiologist's impression: ITS Impressions Foot X-Ray 06/08/23 14:50 IMPRESSION: 1. Base of fifth metatarsal fracture nondisplaced. 2. Fracture shaft second metatarsal with angulation and mild displacement. 3. Question minimal fracture base of the first metatarsal at the tarsometatarsal joint. Degenerative changes also seen in this joint with periarticular calcifications. 4. Hairline lucency in the medial cuneiform on the AP view is nonspecific without definite cortical step off. Minimal hairline fracture not excluded. 5. Dorsal and plantar soft tissue swelling. 6. Degenerative changes elsewhere. Electronically authenticated by: SAIRA RUSSELL Date: 06/08/2023 15:51 CT scan - pelvis: Radiologist's impression: ITS Impressions Foot X-Ray 06/08/23 14:50 IMPRESSION: 1. Base of fifth metatarsal fracture nondisplaced. 2. Fracture shaft second metatarsal with angulation and mild displacement. 3. Question minimal fracture base of the first metatarsal at the tarsometatarsal joint. Degenerative changes also seen in this joint with periarticular calcifications. 4. Hairline lucency in the medial cuneiform on the AP view is nonspecific without definite cortical step off. Minimal hairline fracture not excluded. 5. Dorsal and plantar soft tissue swelling. 6. Degenerative changes elsewhere. Electronically authenticated by: SAIRA RUSSELL Date: 06/08/2023 15:51 Femur X-Ray 06/08/23 15:58 IMPRESSION: Negative for femur fracture. Fracture proximal fibula at the knee see separate dictation knee x-ray and lower leg x-ray. Electronically authenticated by: SAIRA RUSSELL Date: 06/08/2023 18:[address] 06/08/23 15:58 IMPRESSION: Acute very severe Lisfranc midfoot fracture-dislocation injury of the midfoot as detailed above. Electronically authenticated by: NILO MARRERO Date: 06/08/2023 18:29 Tibia/Fibula X-Ray 06/08/23 15:58 IMPRESSION: 1. Proximal fibular fracture or bony. Question fractures of the superior patellar osteophyte at the knee. Subsequently x-ray report. 2. No other lower leg fracture seen. 3. Foot fracture described on separate foot x-ray report. Electronically authenticated by: SAIRA RUSSELL Date: 06/08/2023 18:21 Chest X-Ray 06/08/23 16:41 Impression: No radiographic evidence of acute cardiopulmonary process. Electronically authenticated by: PADMINI PRICE Date: 06/08/2023 18:21 ECG Data Attestation: I personally reviewed and interpreted this ECG as follows: (EKG interpretation. Normal sinus rhythm at 100 beats a minute. Left axis deviation. No acute ST elevation, no acute ectopy. QTc of 383. [facility] noted,) Discharge Plan Discharge Chief Complaint: Extremity Injury, Lower Clinical Impression: Fracture of foot, Closed fibular fracture Patient Disposition: Admitted as Observation Time of Disposition Decision: 18:03 Condition: Good Discharge Date/Time: 06/08/23 18:20
--- NOTE | 2023-06-08 16:41 | XR_ITS ---
The [address] [address] Patient Name: KARINA DE OLIVEIRA MRN: [id number] date: 1965 Sex: F Assigned Patient Location: ER Current Patient Location: ER Accession/Order Number: [id number] Exam Date: 06/08/2023 17:15 Report Date: 06/08/2023 18:21 At the request of: SAMAN CUENCA Procedure: XR chest 2V EXAM: XR chest 2V HISTORY: fall COMPARISON: None. TECHNIQUE: Chest X-ray AP, 1 view FINDINGS: Support devices: None. Lungs/pleura: No consolidation, effusion, or pneumothorax. Heart and mediastinum: Normal contours. Bones: No acute abnormality identified. XR/XR chest 2V Impression: No radiographic evidence of acute cardiopulmonary process. Electronically authenticated by: PADMINI PRICE Date: 06/08/2023 18:21
[2023-06-08 17:03] LABS: Basophils Absolute Auto 0.1 10^3/uL (0.0-0.1); Basophils Percent Auto 0.5 % (0.2-2.0); Eosinophils Absolute Auto 0.3 10^3/uL (0.0-0.7); Hematocrit 38.1 % (36.0-48.0); Hemoglobin 12.2 g/dL (12.0-16.0); Immature Granulocytes Abs Auto 0.13 10^3/uL (0.00-0.03); Immature Granulocytes Pct Auto 1.3 % (0.0-0.5); Lymphocytes Absolute Auto 2.8 10^3/uL (1.2-3.8); Lymphocytes Percent Auto 28.9 % (20.5-60.0); Mean Corpuscular Hemoglobin 30.7 pg (26.7-34.0); Mean Corpuscular Volume 95.7 fL (81.0-99.0); Mean Platelet Volume 10.7 fL (9.5-13.5); Monocytes Absolute Auto 0.7 10^3/uL (0.3-0.8); Monocytes Percent Auto 7.1 % (1.7-12.0); Neutrophils Absolute Auto 5.8 10^3/uL (1.4-6.5); Neutrophils Percent Auto 59.2 % (43.0-75.0); Platelet Count 188 10^3/uL (150-450); Red Blood Count 3.98 10^6/uL (4.20-5.40); Red Cell Distribution Width 14.2 % (11.0-15.0); White Blood Count 9.8 10^3/uL (4.0-11.0)
[2023-06-08 17:36] LABS: INR 0.96; Prothrombin Time 10.2 sec (9.0-11.6)
[2023-06-08 17:50] LABS: Alanine Aminotransferase 24 U/L (14-59); Albumin Globulin Ratio 0.8; Albumin Level 3.1 g/dL (3.4-5.0); Alkaline Phosphatase 80 U/L (46-116); Aspartate Amino Transferase 15 U/L (15-37); BUN Creatinine Ratio 17.5; Bilirubin Total 0.3 mg/dL (0.2-1.0); Calcium 9.1 mg/dL (8.5-10.1); Carbon Dioxide 31.1 mmol/L (21.0-32.0); Chloride 102 mmol/L (98-107); Estimated GFR (African America >60 (>=60); Estimated GFR (Non-African Ame 55 (>=60); Globulin 4.1 g/dL; Glucose 112 mg/dL (74-106); Potassium 4.1 mmol/L (3.5-5.1); Sodium 143 mmol/L (136-145); Total Protein 7.2 g/dL (6.4-8.2)
[2023-06-08 17:52] LABS: Troponin I High Sensitivity 4.8 pg/mL (4.0-51.3)
[2023-06-08 17:59] LABS: Bilirubin Urine NEGATIVE (NEGATIVE); Blood Urine TRACE-I (NEGATIVE); Clarity Urine CLEAR (CLEAR); Color Urine LT. YELLOW (YELLOW); Glucose Urine UA NEGATIVE (NEGATIVE); Ketones Urine NEGATIVE (NEGATIVE); Leukocyte Esterase Urine NEGATIVE (NEGATIVE); Nitrite Urine NEGATIVE (NEGATIVE); Protein Urine NEGATIVE (NEG/TRACE); Specific Gravity Urine <=1.005 (1.005-1.025); Urobilinogen Urine 0.2 EU/dL (0.2-1.0)
[2023-06-08 18:00] LABS: Urine Microscopic Indicated YES
[2023-06-08 18:06] LABS: Bacteria Urine NONE SEEN #/HPF (NONE SEEN); Mucus Urine NONE SEEN (NONE SEEN); RBC Urine NONE SEEN #/HPF (0-2); WBC Urine NONE SEEN #/HPF (NONE SEEN)
[2023-06-08 18:07] LABS: Amorphous Sediment Urine RARE; Cast Seen? NONE SEEN #/LPF (NONE SEEN); Crystals Seen? None Seen #/HPF (None Seen); Squamous Epithelial Cell Urine FEW #/LPF (NONE/RARE); Urine Culture Indicated NO
[2023-06-08] MEDS: MORPHINE SULFATE 2 MG/ML SYRINGE IV (18:07)
--- OUTSIDE RECORDS SUMMARY | 2023-06-08 18:29 | XMS_ITS | CCD ---
Author Organization [facility] Care Team Providers Care Cloth Presser Name Role Phone House DO, Sr Jonathan Klein Primary Care Provider [phone] NIKKIE BARCLAY Referring Unavailabl e HOUSE, SR [...] Unavailable KAREN, SUSSY Dos Santos Attending Unavailable KINROSS, DR BASURTO Primary Care Unavailable GAETANO, DR PATTIE Nieves Consulting Unavailable [facility] SUSSY Dos Santos Consulting Unavailable HOUSE, DR BASURTO Attending Unavailable HOUSE, DR BASURTO Primary Care Unavailable HOUSE, DR BASURTO Admitting Unavailable HOUSE, DR BASURTO Consulting Unavailable HOUSE, DR BASURTO Primary Care Unavailable GAETANO, DR PATTIE Nieves Consulting Unavailable LAKSHMIPATHY ., NARENDRANATH Admitting Nellie vailable LAKSHMIPATHY ., NARCAMRYNATH Attending Nellie vailable LAKSHMIPATHY ., BILLY Consulting Nellie vailable HOUSE, DR BASURTO Admitting Unavailable KINROSS, DR BASURTO Attending Unavailable KINROSS, DR BASURTO Primary Care Unavailable MORVEN, DR RYAN Guzman Consulting Unavailable HOUSE, DR [...] Trimble Unavailable PIERCE ., CRYS Trimble Unavailable KINROSS, DR BASURTO Primary Care Unavailable HOLM ., DR RICARDO Belcher Admitting Unavailable HOLM ., DR RICARDO Belcher Attending Unavailable LAKSHMIPATHY ., BILLY Consulting Nellie vailable HOUSE, DR BASURTO Primary Care Unavailable HOLM ., DR RICARDO Belcher Admitting Unavailable HOLM ., DR RICARDO Belcher Attending Unavailable PIERCE ., CRYS Consulting Unavailable Elle Hendricks Unavailable Shaikh Connelly MD Primary Care Provider [phone] ELIDA GARCIA Attending Unavailable SHAIKH CONNELLY Attending [...] 12, 2017 1:00am January 15, 2017 2:23pm Ouokcwmkhkmo-Xe-Rru n-Minerals (Multiple Vitamin, Womens) Tablet (1 source) Start: 01-12-2017 End: 01-15-2017 Nynsvqlsokyi-Ii-Gi on-Minerals (Multiple Vitamin, Womens) Tablet Discontinued PO [...] PATTIE SALTER Date: 2022-06-07 11:15 Normal [facility] CBC AUTO DIFFon 04-12-2022 BASO # 0.1 103/ul Normal 0.0-0.1 [facility] Comment on above: Performed By: #### C BC ####[facility] [address] [place] [address]DrPasquale Valenzuela Basophils/100 WBC (Bld) 0.5 % Normal 0.2-2.0 [facility] Comment on above: Performed By: #### C BC ####[facility] [address] [place], [place] [address]DrPasquale Valenzuela EO # 0.3 103/ul Normal 0.0-0.7 [facility] Comment on above: Performed By: #### C BC ####[facility] Xu[address]sw[address] [place], [place] [address]DrPasquale Valenzuela Eosinophils/100 WBC (Bld) 3.0 % Normal 0.9-7.0 [facility] Comment on above: Performed By: #### C BC ####[facility] [address] [place], [place] [address]DrPasquale Valenzuela Erythrocyte distribution width (RBC) [Ratio] 14.8 % Normal 11.0-15.0 [facility] Comment on above: Performed By: #### C BC ####[facility] [address] [place], [place] [address]DrPasquale Valenzuela Hematocrit (Bld) [Volume fraction] 40.6 % Normal 36.0-48.0 [facility] Comment on above: Performed By: #### C BC ####[facility] By[address] [place], [place] [address]DrPasquale Valenzuela Hemoglobin (Bld) [Mass/Vol] 13.5 g/dL Normal 12.0-16.0 [facility] Comment on above: Performed By: #### C BC ####[facility] [address] [place], [place] [address]DrPasquale Suttonsharron Nicolas IG # 0.16 10e3/ul Critically high 0.00-0.03 [facility] Comment on above: Performed By: #### C BC ####[facility] [address] [place] [address]DrPasquale Ricky Nicolas IG % 1.4 % Critically high 0.0-0.5 [facility] Comment on above: Performed By: #### C BC ####[facility] [address] [place] [address]DrPasquale Suttonsharron Nicolas LYMPH # 3.4 103/ul Normal 1.2-3.8 [facility] Comment on above: Performed By: #### C BC ####[facility] [address] [place] [address]DrPasquale Valenzuela Lymphocytes/100 WBC (Bld) 30.4 % Normal 20.5-60.0 [facility] Comment on above: Performed By: #### C BC ####[facility] [address] [place], [place] [address]DrPasquale Valenzuela MANUAL DIFF REQ NO Normal [facility] Comment on above: Performed By: #### C BC ####[facility] [address] [place], [place] [address]DrPasquale Ricky Nicolas MCH (RBC) [Entitic mass] 31.8 pg Normal 26.7-34.0 [facility] Comment on above: Performed By: #### C BC ####[facility] [address] [place], [place] [address]DrPasquale Suttonsharron Nicolas MCHC (RBC) [Mass/Vol] 33.3 g/dL Normal 29.9-35.2 [facility] Comment on above: Performed By: #### C BC ####[facility] Cy[address] [place], [place] [address]DrPasquale Valenzuela MCV (RBC) [Entitic vol] 95.5 fL Normal 81.0-99.0 [facility] Comment on above: Performed By: #### C BC ####[facility] [address] [place], [place] [address]DrPasquale Valenzuela MONO # 0.9 103/ul Critically high 0.3-0.8 [facility] Comment on above: Performed By: #### C BC ####[facility] [address] [place] [id number]. Ricky Valenzuela Monocytes/100 WBC (Bld) 7.7 % Normal 1.7-12.0 [facility] Comment on above: Performed By: #### C BC ####[facility] [address] [place] [id number]. Ricky Valenzuela NEUT # 6.3 103/ul Normal 1.4-6.5 [facility] Comment on above: Performed By: #### C BC ####[facility] [address] [place] [id number]. Ricky Valenzuela Neutrophils/100 WBC (Bld) 57.0 % Normal 43.0-75.0 [facility] Comment on above: Performed By: #### C BC ####[facility] [address] [place], [place] [address]Dr. Ricky Valenzuela Platelet mean volume (Bld) [Entitic vol] 9.8 fL Normal 9.5-13.5 [facility] Comment on above: Performed By: #### C BC ####[facility] [address] [place] [id number]. Ricky Valenzuela PLT 246 103/ul Normal 150-450 [facility] Comment on above: Performed By: #### C BC ####[facility] [address] [place] [id number]. Ricky Valenzuela RBC 4.25 106/ul Normal 4.20-5.40 [facility] Comment on above: Performed By: #### C BC ####[facility] [address] [place] [phone]. Ricky Valenzuela WBC 11.1 103/ul Critically high 4.0-11.0 [facility] Comment on above: Performed By: #### C BC ####[facility] [address] [place], [place] [address]Dr. Ricky Valenzuela GLYCOHEMOGLOBIN A1Con 2022 ADA RECOMMENDATION SEE BELOW Normal [facility] Comment on above: Result Comment: ADA RECOMMENDED LIMIT 4.0 - 6.0 ADA THERAPEUTIC TARGET < 7.0 ACTION SUGGESTED > 7.0 Performed By: #### A 1C ####[facility] [address] [place] [address]Dr. Ricky Valenzuela Glucose [Mass/Vol] 160 mg/dL Normal [facility] Comment on above: Performed By: #### A 1C ####[facility] [address] [place] [address]Dr. Ricky Valenzuela HbA1c (Bld) [Mass fraction] 7.2 % Critically high 4.5-6.2 [facility] Comment on above: Performed By: #### A 1C ####[facility] [address] [place] [address]DrPasquale Valenzuela MICROALBUMIN, RAND URon mALB <1.3 Normal <=30.0 [facility] Comment on above: Performed By: #### M ALBR #### [facility] [address] [address] [address] Ricky Valenzuela PROF 14(COMP METB)on 023 Albumin [Mass/Vol] 3.3 g/dL Critically low 3.4-5.0 [facility] Comment on above: Performed By: #### C MP #### [facility] [address] [address] [address] Ricky Valenzuela Albumin/Globulin [Mass ratio] 0.9 {ratio} Normal [facility] Comment on above: Performed By: #### C MP #### [facility] [address] [address] [address] Ricky Valenzuela ALP [Catalytic activity/Vol] 90 U/L Normal 46-116 [facility] Comment on above: Performed By: #### C MP #### [facility] [address] [address] [address] Ricky Valenzuela ALT [Catalytic activity/Vol] 42 U/L Normal 14-59 [facility] Comment on above: Performed By: #### C MP #### [facility] [address] [address] [address] Ricky Valenzuela Anion gap [Moles/Vol] 10.1 mmol/L Normal [facility] Comment on above: Performed By: #### C MP #### [facility] [address] [address] [address] Ricky Valenzuela AST [Catalytic activity/Vol] 21 U/L Normal 15-37 [facility] Comment on above: Performed By: #### C MP #### [facility] [address] [address] [address] Ricky Valenzuela Bilirubin [Mass/Vol] 0.3 mg/dL Normal 0.2-1.0 [facility] Comment on above: Performed By: #### C MP #### [facility] [address] [address] [address] Ricky Valenzuela Calcium [Mass/Vol] 9.8 mg/dL Normal 8.5-10.1 [facility] Comment on above: Performed By: #### C MP #### [facility] [address] [address] [address] Ricky Valenzuela Chloride [Moles/Vol] 99 mmol/L Normal 98-107 [facility] Comment on above: Performed By: #### C MP #### [facility] [address] [address] [address] Ricky Valenzuela CO2 [Moles/Vol] 33.7 mmol/L Critically high 21.0-32.0 [facility] Comment on above: Performed By: #### C MP #### [facility] [address] [address] [address] Ricky Valenzuela Creatinine [Mass/Vol] 0.94 mg/dL Normal 0.55-1.02 [facility] Comment on above: Performed By: #### C MP #### [facility] [address] [address] [address] Ricky Valenzuela EGFR-AF [place]IZ[place] >60 Normal >=60 [facility] Comment on above: Performed By: #### C MP #### [facility] [address] [address] [address] Ricky Valenzuela EGFR-NON AF [place]IZ[place] >60 Normal >=60 [facility] Comment on above: Performed By: #### C MP #### [facility] [address] [place] [address] Dr. Ricky Valenzuela Globulin (S) [Mass/Vol] 3.8 g/dL Normal [facility] Comment on above: Performed By: #### C MP #### [facility] [address] [place] [address] Dr. Ricky Valenzuela Glucose [Mass/Vol] 168 mg/dL Critically high 74-106 [facility] Comment on above: Performed By: #### C MP #### [facility] [address] [place] [address] Dr. Ricky Valenzuela Potassium [Moles/Vol] 4.8 mmol/L Normal 3.5-5.1 [facility] Comment on above: Performed By: #### C MP #### [facility] [address] [place] [address] Dr. Ricky Valenzuela Protein [Mass/Vol] 7.1 g/dL Normal 6.4-8.2 [facility] Comment on above: Performed By: #### C MP #### [facility] [address] [place] [address] Dr. Ricky Valenzuela Sodium [Moles/Vol] 138 mmol/L Normal 136-145 [facility] Comment on above: Performed By: #### C MP #### [facility] [address] [place] [address] Dr. Ricky Valenzuela Urea nitrogen [Mass/Vol] 22.0 mg/dL Critically high 7.0-18.0 [facility] Comment on above: Performed By: #### C MP #### [facility] [address] [place] [address] Dr. Ricky Valenzuela Urea nitrogen/Creatinine [Mass ratio] 23.4 mg/mg Normal [facility] Comment on above: Performed By: #### C MP #### [facility] [address] [place] [address] Dr. Ricky Valenzuela Cytologyon 07-20-2022 Cytology (NOTE) INTERPRETATION Vaginal material, (ThinPrep vial, Imaging-assisted review): Specimen Adequacy: Satisfactory for evaluation. Descriptive Diagnosis: Negative for intraepithelial lesion or malignancy. Flight/Transport Nurse: CLARK Delacruz(ASCP) Electronically Signed Out ss/09/07/2021 Source: A: Vaginal material, (ThinPrep vial, Imaging-assisted review) Clinical History Hysterectomy Surgery: Salpingostomy; Ovary removal Z12.4 Encounter for screening for malignant neoplasm of cervix GYNECOLOGIC CYTOLOGY REPORT Patient Name: KARINA DE OLIVEIRA [facility] Rec: [id number] Path Number: [id number] [facility] [employer] [facility] ANATOMIC PATHOLOGY [address] [place] [id number] Normal [place] Comment on above: Performed By: #### P PPVP #### [address] [id number] [employer] Consultant: Luca Cummins MD CBC AUTO DIFFon 08-09-2021 BASO # 0.1 103/ul Normal 0.0-0.1 [facility] Comment on above: Performed By: #### C BC #### [facility] [address] [place] [address] Dr. Ricky Valenzuela Basophils/100 WBC (Bld) 0.8 % Normal 0.2-2.0 [facility] Comment on above: Performed By: #### C BC #### [facility] [address] [place] [address] Dr. Ricky Valenzuela EO # 0.2 103/ul Normal 0.0-0.7 [facility] Comment on above: Performed By: #### C BC #### [facility] [address] [address] [address] Ricky Valenzuela Eosinophils/100 WBC (Bld) 2.1 % Normal 0.9-7.0 [facility] Comment on above: Performed By: #### C BC #### [facility] [address] [place] [address] Dr. Ricky Valenzuela Erythrocyte distribution width (RBC) [Ratio] 15.2 % Critically high 11.0-15.0 [facility] Comment on above: Performed By: #### C BC #### [facility] [address] [place] [address] Dr. Ricky Valenzuela Hematocrit (Bld) [Volume fraction] 41.5 % Normal 36.0-48.0 [facility] Comment on above: Performed By: #### C BC #### [facility] [address] [place] [address] Dr. Ricky Valenzuela Hemoglobin (Bld) [Mass/Vol] 13.5 g/dL Normal 12.0-16.0 [facility] Comment on above: Performed By: #### C BC #### [facility] [address] [place] [address] Dr. Ricky Valenzuela IG # 0.42 10e3/ul Critically high 0.00-0.03 [facility] Comment on above: Performed By: #### C BC #### [facility] [address] [place] [address] Dr. Ricky Valenzuela IG % 3.8 % Critically high 0.0-0.5 [facility] Comment on above: Performed By: #### C BC #### [facility] [address] [place] [address] Dr. Ricky Valenzuela LYMPH # 3.3 103/ul Normal 1.2-3.8 [facility] Comment on above: Performed By: #### C BC #### [facility] [address] [place] [address] Dr. Ricky Valenzuela Lymphocytes/100 WBC (Bld) 29.1 % Normal 20.5-60.0 [facility] Comment on above: Performed By: #### C BC #### [facility] [address] [place] [address] Dr. Ricky Valenzuela MANUAL DIFF REQ NO Normal [facility] Comment on above: Performed By: #### C BC #### [facility] [address] [place] [address] Dr. Ricky Valenzuela MCH (RBC) [Entitic mass] 32.4 pg Normal 26.7-34.0 [facility] Comment on above: Performed By: #### C BC #### [facility] [address] [address] [address] Ricky Valenzuela MCHC (RBC) [Mass/Vol] 32.5 g/dL Normal 29.9-35.2 [facility] Comment on above: Performed By: #### C BC #### [facility] [address] [address] [address] Ricky Valenzuela MCV (RBC) [Entitic vol] 99.5 fL Critically high 81.0-99.0 [facility] Comment on above: Performed By: #### C BC #### [facility] [address] [address] [address] Ricky Valenzuela MONO # 0.8 103/ul Normal 0.3-0.8 [facility] Comment on above: Performed By: #### C BC #### [facility] [address] [place] [address] Dr. Ricky Valenzuela Monocytes/100 WBC (Bld) 7.5 % Normal 1.7-12.0 [facility] Comment on above: Performed By: #### C BC #### [facility] [address] [place] [address] Dr. Ricky Valenzuela NEUT # 6.3 103/ul Normal 1.4-6.5 [facility] Comment on above: Performed By: #### C BC #### [facility] [address] [place] [address] Dr. Ricky Valenzuela Neutrophils/100 WBC (Bld) 56.7 % Normal 43.0-75.0 [facility] Comment on above: Performed By: #### C BC #### [facility] [address] [address] [address] Ricky Valenzuela Platelet mean volume (Bld) [Entitic vol] 9.8 fL Normal 9.5-13.5 [facility] Comment on above: Performed By: #### C BC #### [facility] [address] [address] [address] Ricky Valenzuela PLT 265 103/ul Normal 150-450 [facility] Comment on above: Performed By: #### C BC #### [facility] [address] [address] [address] Ricky Valenzuela RBC 4.17 106/ul Critically low 4.20-5.40 [facility] Comment on above: Performed By: #### C BC #### [facility] [address] [address] [address] Ricky Valenzuela WBC 11.2 103/ul Critically high 4.0-11.0 [facility] Comment on above: Performed By: #### C BC #### [facility] [address] [address] [address] Ricky Valenzuela GLYCOHEMOGLOBIN A1Con 2021 ADA RECOMMENDATION SEE BELOW Normal [facility] Comment on above: Result Comment: ADA RECOMMENDED LIMIT 4.0 - 6.0 ADA THERAPEUTIC TARGET < 7.0 ACTION SUGGESTED > 7.0 Performed By: #### A 1C ####[facility] [address] [place] [address]Dr. Ricky Valenzuela Glucose [Mass/Vol] 183 mg/dL Normal [facility] Comment on above: Performed By: #### A 1C ####[facility] [address] [place] [address]Dr. Ricky Valenzuela HbA1c (Bld) [Mass fraction] 8.0 % Critically high 4.5-6.2 [facility] Comment on above: Performed By: #### A 1C ####[facility] [address] [place] [address]Dr. Ricky Valenzuela LIPID PROFILEon 08-09-2021 CHOL-HDL RATIO NORM SEE BELOW Normal [facility] Comment on above: Result Comment: 3.3 - 4.4 LOW RISK 4.4 - 7.1 AVERAGE RISK 7.1 - 11.0 MODERATE RISK >11.0 HIGH RISK Performed By: #### C MP, LIPID #### [facility] [address] [address] [address] Ricky Valenzuela Cholesterol [Mass/Vol] 239 mg/dL Critically high <=200 [facility] Comment on above: Performed By: #### C MP, LIPID #### [facility] [address] [address] [address] Ricky Valenzuela Cholesterol in HDL [Mass/Vol] 36 mg/dL Critically low 40-60 [facility] Comment on above: Performed By: #### C MP, LIPID #### [facility] [address] [address] [address] Ricky Valenzuela Cholesterol in LDL [Mass/Vol] 164.2 mg/dL Normal [facility] Comment on above: Performed By: #### C MP, LIPID #### [facility] [address] [address] [address] Ricky Valenzuela Cholesterol.total/Cho lesterol in HDL [Mass ratio] 6.6 {ratio} Normal [facility] Comment on above: Performed By: #### C MP, LIPID #### [facility] [address] [address] [address] Ricky Valenzuela HDL NORMAL > or = 60 mg/dl - LO W CARDIOVASCULAR RISK <40 mg/dl - HIGH CARDIOVASCULAR RISK Normal [facility] Comment on above: Performed By: #### C MP, LIPID #### [facility] [address] [address] [address] Ricky Valenzuela LDL CALC NORMAL SEE BELOW Normal [facility] Comment on above: Result Comment: <100 mg/dl OPTIMAL 100 - 129 mg/dl NEAR OR ABOVE OPTIMAL 130 - 159 mg/dl BORDERLINE HIGH 160 - 189 mg/dl HIGH >190 mg/dl VERY HIGH Performed By: #### C MP, LIPID #### [facility] [address] [address] [address] Ricky Valenzuela Triglyceride [Mass/Vol] 194 mg/dL Critically high <=150 [facility] Comment on above: Performed By: #### C MP, LIPID #### [facility] [address] [address] [address] Ricky Valenzuela VLDL CALC 38.8 mg/dL Normal [facility] Comment on above: Performed By: #### C MP, LIPID #### [facility] [address] [address] [address] Ricky Valenzuela MICROALBUMIN, RAND URon 06-2 mALB 13.1 mg/L Normal <=30.0 [facility] Comment on above: Performed By: #### M ALBR ####[facility] [address] [place] [address]Dr. Ricky Valenzuela PROF 14(COMP METB)on 022 Albumin [Mass/Vol] 3.3 g/dL Critically low 3.4-5.0 [facility] Comment on above: Performed By: #### C MP, LIPID #### [facility] [address] [place] [address] Dr. Ricky Valenzuela Albumin/Globulin [Mass ratio] 0.8 {ratio} Normal [facility] Comment on above: Performed By: #### C MP, LIPID #### [facility] [address] [place] [address] Dr. Ricky Valenzuela ALP [Catalytic activity/Vol] 93 U/L Normal 46-116 [facility] Comment on above: Performed By: #### C MP, LIPID #### [facility] [address] [place] [address] Dr. Ricky Valenzuela ALT [Catalytic activity/Vol] 37 U/L Normal 14-59 [facility] Comment on above: Performed By: #### C MP, LIPID #### [facility] [address] [place] [address] Dr. Ricky Valenzuela Anion gap [Moles/Vol] 10.9 mmol/L Normal [facility] Comment on above: Performed By: #### C MP, LIPID #### [facility] [address] [place] [address] Dr. Ricky Valenzuela AST [Catalytic activity/Vol] 10 U/L Critically low 15-37 [facility] Comment on above: Performed By: #### C MP, LIPID #### [facility] [address] [place] [address] Dr. Ricky Valenzuela Bilirubin [Mass/Vol] 0.2 mg/dL Normal 0.2-1.0 [facility] Comment on above: Performed By: #### C MP, LIPID #### [facility] [address] [place] [address] Dr. Ricky Valenzuela Calcium [Mass/Vol] 9.0 mg/dL Normal 8.5-10.1 [facility] Comment on above: Performed By: #### C MP, LIPID #### [facility] [address] [place] [address] Dr. Ricky Valenzuela Chloride [Moles/Vol] 100 mmol/L Normal 98-107 [facility] Comment on above: Performed By: #### C MP, LIPID #### [facility] [address] [place] [address] Dr. Ricky Valenzuela CO2 [Moles/Vol] 32.2 mmol/L Critically high 21.0-32.0 [facility] Comment on above: Performed By: #### C MP, LIPID #### [facility] [address] [place] [address] Dr. Ricky Valenzuela Creatinine [Mass/Vol] 0.95 mg/dL Normal 0.55-1.02 [facility] Comment on above: Performed By: #### C MP, LIPID #### [facility] [address] [place] [address] Dr. Ricky Valenzuela EGFR-AF [place] >60 Normal >=60 [facility] Comment on above: Performed By: #### C MP, LIPID #### [facility] [address] [place] [address] Dr. Ricky Valenzuela EGFR-NON AF [place]IZ[place] OF [place] >60 Normal >=60 [facility] Comment on above: Performed By: #### C MP, LIPID #### [facility] [address] [place] [address] Dr. Ricky Valenzuela Globulin (S) [Mass/Vol] 4.2 g/dL Normal [facility] Comment on above: Performed By: #### C MP, LIPID #### [facility] [address] [place] [address] Dr. Ricky Valenzuela Glucose [Mass/Vol] 200 mg/dL Critically high 74-[address] [facility] Comment on above: Performed By: #### C MP, LIPID #### [facility] [address] [place] [address] Dr. Ricky Valenzuela Potassium [Moles/Vol] 4.1 mmol/L Normal 3.5-5.1 [facility] Comment on above: Performed By: #### C MP, LIPID #### [facility] [address] [place] [address] Dr. Ricky Valenzuela Protein [Mass/Vol] 7.5 g/dL Normal 6.4-8.2 [facility] Comment on above: Performed By: #### C MP, LIPID #### [facility] [address] [place] [address] Dr. Ricky Valenzuela Sodium [Moles/Vol] 139 mmol/L Normal 136-145 [facility] Comment on above: Performed By: #### C MP, LIPID #### [facility] [address] [place] [address] Dr. Ricky Valenzuela Urea nitrogen [Mass/Vol] 13.0 mg/dL Normal 7.0-18.0 [facility] Comment on above: Performed By: #### C MP, LIPID #### [facility] [address] [place] [address] Dr. Rciky Valenzuela Urea nitrogen/Creatinine [Mass ratio] 13.7 mg/mg Normal [facility] Comment on above: Performed By: #### C MP, LIPID #### [facility] [address] [place] [address] Dr. Ricky Valenzuela POINT OF CARE GLUCOSEon 05 Glucose [Mass/Vol] 176 mg/dL Critically high 74-[address] [facility] Comment on above: Performed By: #### P OCGLUC #### [facility] [address] [place] [address] Dr. Ricky Valenzuela Vital Signs Date Time Vital Sign Value Performing Clinician Facility 01-18-2023 09:10-0500 Body height 156.21 cm Elle Hendricks Other [facility] Other 01-18-2023 09:10-0500 Body mass index (BMI) [Ratio] 42.82 kg/m2 Elle Hendricks Other [facility] Other 01-18-2023 09:10-0500 Body temperature 98.2 [degF] Elle Hendricks Other [facility] Other 01-18-2023 09:10-0500 Body weight 104.51 kg Elle Hendricks Other [facility] Other 01-18-2023 09:10-0500 Diastolic blood pressure 92 mm[Hg] Elle Hendricks Other [facility] Other 01-18-2023 09:10-0500 Respiratory rate 18 /min Elle Hendricks Other [facility] Other 01-18-2023 09:10-0500 SaO2% (BldA) [Mass fraction] 97 % Elle Hendricks Other [facility] Other 01-18-2023 09:10-0500 Systolic blood pressure 145 mm[Hg] Elle Hendricks Other [facility] Other Encounters Encounter Date Encounter Type Care Provider Facility Start: 05-02-2023 End: 05-02-2023 ambulatory SHAIKH MARICEL Not Available Start: 04-30-2023 End: 04-30-2023 ambulatory [facility] Work Phone: Start: 04-30-2023 End: 04-30-[address] [facility] Work Phone: Start: 03-21-2023 Orders Only Shaikh Maricel HOLLIS Work Phone: [facility] Comment on above: Diabetic polyneuropa thy associated with type 2 diabetes mellitus (CMS/HCC) (Primary Dx) Start: 03-19-2023 End: 03-19-2023 ambulatory Ana Luisa Curtis Other [facility] Other Start: 03-19-2023 Office outpatient vi sit 15 minutes Ana Luisa Calvey [facility] Start: 02-25-2023 End: 02-25-2023 ambulatory ELIDA GARCIA Not Available Start: 01-29-2023 End: 01-29-2023 ambulatory SHAIKH MARICEL Not Available Start: 01-23-2023 End: 01-23-2023 ambulatory Ana Luisa Crutis Other [facility] Other Start: 01-23-2023 Office outpatient vi sit 15 minutes Ana Luisa Julianoey [facility] Start: 01-18-2023 End: 01-18-2023 ambulatory Elle Hendricks Other [facility] Other Start: 01-18-2023 Office outpatient vi sit 15 minutes Elle Hendricks [facility] Start: 09-19-2022 End: 09-19-2022 ambulatory Ana Luisa Curtis Other [facility] Other Start: 09-19-2022 Telephone encounter Ana Luisa Curtis [facility] Start: 07-12-[address] JONATHAN EDWARDS Facili ty:H1 Start: 06-07-2022 End: 06-08-[address] JONATHAN EDWARDS Facility:[facility] Start: 05-02-2022 End: 05-02-2022 ambulatory Ana Luisa Curtis Other [facility] Other Start: 05-02-2022 Office outpatient ne w 30 minutes Ana Luisa Curtis [facility] Start: 04-12-2022 End: 04-13-[address] JONATHAN EDWARDS Facility:[facility]1 Start: 03-08-2022 End: 03-09-[address] JONATHAN EDWARDS Facility:[facility] Start: 02-16-2022 End: 02-17-[address] JONATHAN EDWARDS Facility:[facility] Start: 02-09-2022 End: 02-10-[address] RICARDO HOLM . Facility:[facility] Start: 11-16-2021 End: 11-17-[address] JONATHAN EDWARDS Facility:[facility]1 Start: 11-01-2021 End: 11-02-2021 ambulatory CRYS PIERCE . Facility:[facility]1 Start: 08-30-2021 End: 08-31-2021 ambulatory NIKKIE BARCLAY [facility] Start: 08-30-2021 End: 08-30-2021 Subsequent hospital visit by physician [facility] DO Work Phone: [facility] Comment on above: Routine cervical sme ar Start: 08-16-2021 Encounter for genera l adult medical examination without abnormal findings DR RICARDO HOLM . [facility] Start: 08-09-2021 End: 08-10-2021 Encounter for [...] ion [Identifier] in Cervix by Cyto stain [facility] DO Work Phone: Plan of Treatment Date Care Activity Detail Author Start: 03-08-2026 Screening for malign ant neoplasm of colon [facility] Start: 08-30-2024 Screening for malign ant neoplasm of cervix [facility] Start: 03-20-2024 Screening for malign ant neoplasm of breast Mammogram [facility] Start: 02-27-2024 End: 02-27-2024 Patient encounter procedure 02/27/2024 11:35 AM EST Office Visit [facility] [address] [place] [address] Elida Garcia MD [address] [place] [address] [facility] Start: 02-12-2024 Glaucoma screening Diabetes: R etinopathy Screening [facility] Start: 08-11-2023 Influenza vaccination Influenza Vacc ine (#1) [facility] Comment on above: Postponed from 10/12 (Patient Refused) Start: 05-02-2023 End: 05-02-2023 Patient encounter procedure 05/02/2023 2:00 PM EDT Office Visit [facility] [address] [place] [id number] Shaikh Connelly MD [address] [place] [id number] [facility] Start: 02-17-2023 Hemoglobin A1c measurement Diabetes: Hemoglobin A1C [facility] Start: 09-04-2022 End: 09-04-2022 Patient encounter procedure 09/04/2022 Office Visit Obstetrics and Gynecology Nikkie Barclay, ANGEL - [address] [facility] [address] [place] [address] [facility] Start: 10-12-2021 Influenza vaccination Flu vaccine (# 1) [facility] Start: 10-21-2013 Screening for malign ant neoplasm of breast Breast cancer screen [facility] Start: 10-21-2013 Shingles vaccine (1 of 2) Shingles vaccine (1 of 2) [facility] Start: 10-21-2008 Screening for malign ant neoplasm of colon [facility] Start: 2003 Lipid panel Lipids [facility] Start: 10-21-1998 Diabetes screen Diabetes screen [facility] Start: 10-21-1993 Screening for malign ant neoplasm of cervix [facility] Start: 10-21-1982 DTaP/Tdap/Td vaccine (1 - Tdap) DTaP/Tdap/Td vaccine (1 - Tdap) [facility] Start: 10-21-1982 Urine screening for protein Diabetes: Urine Protein Screening [facility] Start: 10-21-1981 Hepatitis C screening Hepatitis C sc reen [facility] Start: 10-21-1978 HIV screening HIV screen [facility] Start: 1975 Depression Screen Depression Screen [facility] Start: 04-20-1964 COVID-19 Vaccine (#1) COVID-19 Vacci ne (#1) [facility] Start: 1965 Screening for malign ant neoplasm of colon [facility] End: 08-30-2021 Cytopathology procedure, preparation of smear, genital source [facility] Routine Routine cervical smear 1 Occurrences starting 08/30/2021 until 08/30/2021 [facility] Work Phone: Comment on above: 1 Occurrences starti ng 08/30/2021 until 08/30/2021 Immunizations Immunization Date Immunization Notes Care Provider Tima garcia 01-14-2017 influenza, injectabl e, quadrivalent, preservative free [facility] Payers Date Payer Category Payer Unknown [employer] [id number] 2022-Present [phone] [address] [address] [place] [address] [id number] 2012 Medicare MEDICARE MEDICAR E PART B [id number] 2012-[place] [address] Medicare [id number] 1963 Unknown [id number] 2.16.840.1.544087.3.579.2.17 3 1963 Unknown [id number] 2.16.840.1.613085.3.579.2.59 3 1963 Unknown [id number] 2.16.840.1.241801.3.579.2.59 3 1963 Unknown [id number] 2.16.840.1.880914.3.579.2.59 3 1963 Unknown [id number] 2.16.840.1.621583.3.579.2.59 3 1963 Unknown [id number] 2.16.840.1.782887.3.579.2.59 3 1963 Unknown [id number] 2.16.840.1.505742.3.579.2.59 3 1963 Unknown [id number] 2.16.840.1.977646.3.579.2.59 3 1963 Unknown [id number] 2.16.840.1.148872.3.579.2.59 3 1963 Unknown [id number] 2.16.840.1.429567.3.579.2.59 3 1963 Unknown [id number] 2.16.840.1.900794.3.579.2.59 3 1963 Unknown [id number] 2.16.840.1.322823.3.579.2.59 3 1963 Unknown [id number] 2.16.840.1.244779.3.579.2.59 3 1963 Unknown [id number] 2.16.840.1.205068.3.579.2.59 3 1963 Unknown [id number] 2.16.840.1.900799.3.579.2.59 3 1963 Unknown [id number] 2.16.840.1.312422.3.579.2.59 3 1963 Unknown [id number] 2.16.840.1.460822.3.579.2.59 3 1963 Unknown [id number] 2.16.840.1.704165.3.579.2.12 59 1963 Unknown [id number] 2.16.840.1.699449.3.579.2.12 59 1963 Unknown [id number] 2.16.840.1.513159.3.579.2.12 59 1959 Medicare [id number] 1.2.840.492344.1.13.239.2.7. 3.671270.315 1959 Unknown [id number] 1.2.840.568900.1.13.239.2.7. 3.458248.315 1959 Unknown [id number] 2.16.840.1.978567.19 Medicare Medicare [id number] Self-pay Self Pay [id number] Social History Date Type Detail Facility Start: 08-30-2021 Tobacco smoking stat [facility] Smokes tobacco daily [employer] Phone: History of tobacco use Cigarette Smoker [facility] [employer] Phone: Start: 08-30-2021 End: 01-29-2023 Tobacco use and exposure Smokeless tobacco non-user [employer] Phone: Start: 08-30-2021 Alcohol intake Current drinke r of alcohol (finding) [employer] Phone: Start: 08-30-2021 History SDOH Alcohol Comment occasional [employer] Phone: Start: 1965 Sex Assigned At Not on file [facility] [employer] Phone: Start: 08-20-2021 End: 08-30-2021 Exposure to SARS-CoV-2 (event) Not sure [employer] Start: 02-25-2023 Sex Assigned At [facility] [employer] Other Start: 01-23-2023 End: 01-29-2023 Tobacco smoking status [facility] Ex-smoker [facility] History of tobacco use Current smoker [facility] Start: 01-29-2023 End: 02-25-2023 Cigarettes smoked current (pack per day) - Reported 0.5 [facility] Start: 02-25-2023 Alcohol intake Lifetime non-d gus (finding) [facility] Start: 1965 Sex Assigned At Female [facility] Medical Equipment Procedure Code Equipment Code Equipment Origin al Text Equipment Identifier Dates USE TO TEST BLOO D SUGAR TWICE DAILY [id number] Start: 06-08-2021 Clinical Notes 06-20-2021 to 03-19-2023 [...] Mar, Left hand pain (ICD-10 - M79.642) [facility] Other 12-13-2023 Evaluation note* Encounter Date Diagnosis [...] noted. Patient will f/u in 4 weeks. [facility] Other 12-08-2023 Evaluation note* Encounter Date Diagnosis [...] left hand x-ray that was performed at [facility] which revealed degenerative changes in the hand as well as a remote avulsion fracture of the thumb. Patient states her family doctor is treating her for gout in her hand. Jan, History of gout (ICD-10 - Z87.39) Jan, Other Gout material w as printed [facility] Other 08-09-2023 Evaluation note* Encounter Date Diagnosis Assessment Notes Treatment Notes Treatment Clinical Notes Sep, Right wrist pain (ICD-10 - M25.531) [facility] Other 04-27-2023 NoteCONSULTATION CONSULTATION DATE: 06/07/2022 TO: [...] our patients to inform us about any [id number] medications or herbal remedies/nutritional supplements/alternative remedies. 2. [...] treatment options with their primary care provider.[facility] [id number] Evaluation note * Encounter Date Diagnosis Assessment [...] understanding and is agreeable to treatment plan. [facility] Other 01-26-2023 NoteCONSULTATION PROCEDURE DATE: 03/08/2022 PREOPERATIVE [...] will be followed up in the clinic.[facility] [id number] NotePROCEDURE: XR KNEE LT 4V or > [...] authenticated by: PATTIE SALTER Date: 2022-02-16 11:29[facility] [id number] NoteCONSULTATION CONSULTATION DATE: 02/09/2022 HISTORY OF PRESENT [...] office today. Patient agrees with this plan.[facility] [id number] NotePROCEDURE: XR WRIST RT MIN 3 V COMPARISON: None. HISTORY: Injury of right wrist FINDINGS: BONES:No acute fracture or dislocation. Corticated bone fragment identified along the first carpometacarpal joint [degenerative in nature SOFT TISSUES:Moderate diffuse soft tissue swelling EFFUSION:None visible. OTHER: Negative. IMPRESSION: Soft tissue swelling, no acute fracture Electronically authenticated by: RYAN GOLDMAN Date: 2021-11-16 18:59[facility] [id number] NoteCONSULTATION CONSULTATION DATE: 11/01/2021 HISTORY OF PRESENT [...] otherwise indicated. Patient agrees with this plan.[facility] [id number] NoteCONSULTATION PROCEDURE DATE: 11/01/2021 PRE AND POSTOPERATIVE [...] will be followed up in the clinic.[facility] [id number] NoteCONSULTATION PROCEDURE DATE: 08/09/2021 PREOPERATIVE DIAGNOSIS: Bilateral [...] will be followed up in the clinic. [facility] Signed and Approved by: CRYS PIERCE . 08/10/2021 13:37:00[facility]06-08-2022 NoteCONSULTATION CONSULTATION DATE: 07/19/2021 HISTORY OF [...] injections. Patient acknowledges and all questions answered. [facility] Signed and Approved by: CRYS PIERCE . 07/20/2021 10:33:00[facility]05-25-2022 NotePROCEDURE: XR FOOT RT MIN 3 [...] Electronically authenticated by: PATTIE SALTER Date: 2021-07-05 11:11[facility]05-10-2022 NoteCONSULTATION CONSULTATION DATE: 06/20/2021 CHIEF COMPLAINT: [...] like to proceed. CC: Jonathan Edwards M.D. [facility] Signed and Approved by: DR RICARDO HOLM . 06/27/2021 10:40:00[facility]* Diagnosis Routine cervical smear Screening for malignant neoplasm of the cervix documented in this encounter [facility] Work Phone: evaluation note* Diagnosis Diabetic polyneuropathy associated with type 2 diabetes mellitus (CMS/HCC)- Primary [facility] in this [facility] noteNo assessment information availableC[facility] Work Phone: History general Narrative - Reported* Type Description Date Medical History GERD (gastroesophageal reflux di sease) Medical History Migraine headache Medical History Arthritis Medical History Edema of both legs Medical History Diabetes mellitus, type 2 Medical History Chronic back pain Surgical History ablasion Surgical History back surgery Surgical History hysterectomy Surgical History tubal ligation Hospitalization History see above [facility] Other Summary Purpose Family History No Family [...] Care Teams (unrecognized sec tion and content) 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 [facility]. provides no warranty or guarantee of the accuracy or completeness of information in this document.
--- OUTSIDE RECORDS SUMMARY | 2023-06-08 18:33 | XMS_ITS | CCD ---
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 Name Role Phone House DO, Sr Jonathan [...] Unavailable KAREN, SUSSY Dos Santos Attending Unavailable BOISE, DR BASURTO Primary Care Unavailable GAETANO, DR PATTIE Nieves Consulting Unavailable [facility] SUSSY Dos Santos Consulting Unavailable HOUSE, DR BASURTO Attending Unavailable HOUSE, DR BASURTO Primary Care Unavailable HOUSE, DR BASURTO Admitting Unavailable HOUSE, DR BASURTO Consulting Unavailable HOUSE, DR BASURTO Primary Care Unavailable GAETANO, DR PATTIE Nieves Consulting Unavailable LAKSHMIPATHY ., NARENDRANATH Admitting Nellie vailable LAKSHMIPATHY ., NARCAMRYNATH Attending Nellie vailable LAKSHMIPATHY ., BILLY Consulting Nellie vailable HOUSE, DR BASURTO Admitting Unavailable BOISE, DR BASURTO Attending Unavailable BOISE, DR BASURTO Primary Care Unavailable [place], DR RYAN Guzman Consulting Unavailable HOUSE, DR [...] Trimble Unavailable PIERCE ., CRYS Trimble Unavailable BOISE, DR BASURTO Primary Care Unavailable HOLM ., DR RICARDO Belcher Admitting Unavailable HOLM ., DR RICARDO Belcher Attending Unavailable LAKSHMIPATHY ., BILLY Consulting Nellie vailable HOUSE, DR BASURTO Primary Care Unavailable HOLM ., DR RICARDO Belcher Admitting Unavailable HOLM ., DR RICARDO Belcher Attending Unavailable PIERCE ., CRYS Consulting Unavailable Elle Hendricks Unavailable Shaikh Connelly MD Primary Care Provider [phone] ELIDA GARCIA Attending Unavailable SHAIKH CONNELLY Attending [...] 12, 2017 1:00am January 15, 2017 2:23pm Cnztvsyecxfo-Qy-Pgn n-Minerals (Multiple Vitamin, Womens) Tablet (1 source) Start: 01-12-2017 End: 01-15-2017 Jzdvarnlitlb-Dz-Dx on-Minerals (Multiple Vitamin, Womens) Tablet Discontinued PO [...] Normal [facility] CBC AUTO DIFFon 04-12-2022 BASO # 0.1 103/ul Normal 0.0-0.1 [facility] Comment on above: Performed By: #### C BC ####[facility] [id number] [place] [address]DrPasquale Valenzuela Basophils/100 WBC (Bld) 0.5 % Normal 0.2-2.0 [facility] Comment on above: Performed By: #### C BC ####[facility] [address] [place], [place] [address]DrPasquale Valenzuela EO # 0.3 103/ul Normal 0.0-0.7 [facility] Comment on above: Performed By: #### C BC ####[facility] Y[address] [place], [place] [address]DrPasquale Valenzuela Eosinophils/100 WBC (Bld) 3.0 % Normal 0.9-7.0 [facility] Comment on above: Performed By: #### C BC ####[facility] H[address] [place], [place] [address]DrPasquale Valenzuela Erythrocyte distribution width (RBC) [Ratio] 14.8 % Normal 11.0-15.0 [facility] Comment on above: Performed By: #### C BC ####[facility] [address] [place], [place] [address]DrPasquale Valenzuela Hematocrit (Bld) [Volume fraction] 40.6 % Normal 36.0-48.0 [facility] Comment on above: Performed By: #### C BC ####[facility] L[address] [place], [place] [address]DrPasquale Valenuzela Hemoglobin (Bld) [Mass/Vol] 13.5 g/dL Normal 12.0-16.0 [facility] Comment on above: Performed By: #### C BC ####[facility] Qywms[address]ri[address] [place], [place] [address]DrPasquale Suttonsharron Nicolas IG # 0.16 10e3/ul Critically high 0.00-0.[address] [facility] Comment on above: Performed By: #### C BC ####[facility] [id number] [place] [address]DrPasquale Ricky Nicolas IG % 1.4 % Critically high 0.0-0.5 [facility] Comment on above: Performed By: #### C BC ####[facility] N[address]zte[address] [place] [address]DrPasquale Suttonsharron Nicolas LYMPH # 3.4 103/ul Normal 1.2-3.8 [facility] Comment on above: Performed By: #### C BC ####[facility] [address] [place] [address]DrPasquale Valenzuela Lymphocytes/100 WBC (Bld) 30.4 % Normal 20.5-60.0 [facility] Comment on above: Performed By: #### C BC ####[facility] Zt[address]ot[address] [place], [place] [address]DrPasquale Valenzuela MANUAL DIFF REQ NO Normal [facility] Comment on above: Performed By: #### C BC ####[facility] Srllbvhoss[address] [place], [place] [address]DrPasquale Ricky Nicolas MCH (RBC) [Entitic mass] 31.8 pg Normal 26.7-34.0 [facility] Comment on above: Performed By: #### C BC ####[facility] K[address] [place], [place] [address]DrPasquale Suttonsharron Nicolas MCHC (RBC) [Mass/Vol] 33.3 g/dL Normal 29.9-35.2 [facility] Comment on above: Performed By: #### C BC ####[facility] [address]ks[address] [place], [place] [address]DrPasquale Valenzuela MCV (RBC) [Entitic vol] 95.5 fL Normal 81.0-99.0 [facility] Comment on above: Performed By: #### C BC ####[facility] Pwgixmfvxa[address] [place], [place] [address]DrPasquale Valenzuela MONO # 0.9 103/ul Critically high 0.3-0.8 [facility] Comment on above: Performed By: #### C BC ####[facility] [address] [place] [id number]. Ricky Valenzuela Monocytes/100 WBC (Bld) 7.7 % Normal 1.7-12.0 [facility] Comment on above: Performed By: #### C BC ####[facility] [address] [place] [address]Dr. Ricky Valenzuela NEUT # 6.3 103/ul Normal 1.4-6.5 [facility] Comment on above: Performed By: #### C BC ####[facility] Xvtf[address]rkzt[address] [place] [id number]. Ricky Valenzuela Neutrophils/100 WBC (Bld) 57.0 % Normal 43.0-75.0 [facility] Comment on above: Performed By: #### C BC ####[facility] R[address] [place], [place] [address]Dr. Ricky Valenzuela Platelet mean volume (Bld) [Entitic vol] 9.8 fL Normal 9.5-13.5 [facility] Comment on above: Performed By: #### C BC ####[facility] [address]mb[address] [place] [id number]. Ricky Valenzuela PLT 246 103/ul Normal 150-450 [facility] Comment on above: Performed By: #### C BC ####[facility] Rq[address]ixfk[address] [place] [id number]. Ricky Valenzuela RBC 4.25 106/ul Normal 4.20-5.40 [facility] Comment on above: Performed By: #### C BC ####[facility] C[address]wccldmz4[address] [place] [id number]. Ricky Valenzuela WBC 11.1 103/ul Critically high 4.0-11.0 [facility] Comment on above: Performed By: #### C BC ####[facility] V[address] [place], [place] [address]Dr. Ricky Valenzuela GLYCOHEMOGLOBIN A1Con 2022 ADA RECOMMENDATION SEE BELOW Normal [facility] Comment on above: Result Comment: ADA RECOMMENDED LIMIT 4.0 - 6.0 ADA THERAPEUTIC TARGET < 7.0 ACTION SUGGESTED > 7.0 Performed By: #### A 1C ####[facility] [address] [place] [address]Dr. Ricky Valenzuela Glucose [Mass/Vol] 160 mg/dL Normal [facility] Comment on above: Performed By: #### A 1C ####[facility] [id number] [place] [address]Dr. Ricky Valenzuela HbA1c (Bld) [Mass fraction] 7.2 % Critically high 4.5-6.2 [facility] Comment on above: Performed By: #### A 1C ####[facility] [address] [place] [address]DrPasquale Valenzuela MICROALBUMIN, RAND URon mALB <1.3 Normal <=30.0 [facility] Comment on above: Performed By: #### M ALBR #### [facility] Laboratory [address] [address] [address] Ricky Valenzuela PROF 14(COMP METB)on 023 Albumin [Mass/Vol] 3.3 g/dL Critically low 3.4-5.0 [facility] Comment on above: Performed By: #### C MP #### [facility] Laboratory [address] [address] [address] Ricky Valenzuela Albumin/Globulin [Mass ratio] 0.9 {ratio} Normal [facility] Comment on above: Performed By: #### C MP #### [facility] Laboratory [address] [address] [address] Ricky Valenzuela ALP [Catalytic activity/Vol] 90 U/L Normal 46-116 [facility] Comment on above: Performed By: #### C MP #### [facility] Laboratory [address] [address] [address] Ricky Valenzuela ALT [Catalytic activity/Vol] 42 U/L Normal 14-59 [facility] Comment on above: Performed By: #### C MP #### [facility] Laboratory [address] [address] [address] Ricky Valenzuela Anion gap [Moles/Vol] 10.1 mmol/L Normal [facility] Comment on above: Performed By: #### C MP #### [facility] Laboratory [address] [address] [address] Ricky Valenzuela AST [Catalytic activity/Vol] 21 U/L Normal 15-37 [facility] Comment on above: Performed By: #### C MP #### [facility] Laboratory [address] [address] [address] Ricky Valenzuela Bilirubin [Mass/Vol] 0.3 mg/dL Normal 0.2-1.0 [facility] Comment on above: Performed By: #### C MP #### [facility] Laboratory [address] [address] [address] Ricky Valenzuela Calcium [Mass/Vol] 9.8 mg/dL Normal 8.5-10.1 [facility] Comment on above: Performed By: #### C MP #### [facility] Laboratory [address] [address] [address] Ricky Valenzuela Chloride [Moles/Vol] 99 mmol/L Normal 98-107 [facility] Comment on above: Performed By: #### C MP #### [facility] Laboratory [address] [address] [address] Ricky Valenzuela CO2 [Moles/Vol] 33.7 mmol/L Critically high 21.0-32.0 [facility] Comment on above: Performed By: #### C MP #### [facility] Laboratory [address] [address] [address] Ricky Valenzuela Creatinine [Mass/Vol] 0.94 mg/dL Normal 0.55-1.02 [facility] Comment on above: Performed By: #### C MP #### [facility] Laboratory [address] [address] [address] Ricky Valenzuela EGFR-AF PAPUA [place] >60 Normal >=60 [facility] Comment on above: Performed By: #### C MP #### [facility] Laboratory [address] [address] [address] Ricky Valenzuela EGFR-NON AF PAP[place] >60 Normal >=60 [facility] Comment on above: Performed By: #### C MP #### [facility] Laboratory [address] [place] [address] Dr. Ricky Valenzuela Globulin (S) [Mass/Vol] 3.8 g/dL Normal [facility] Comment on above: Performed By: #### C MP #### [facility] Laboratory [address] [place] [address] Dr. Ricky Valenzuela Glucose [Mass/Vol] 168 mg/dL Critically high 74-106 [facility] Comment on above: Performed By: #### C MP #### [facility] Laboratory [address] [place] [address] Dr. Ricky Valenzuela Potassium [Moles/Vol] 4.8 mmol/L Normal 3.5-5.1 [facility] Comment on above: Performed By: #### C MP #### [facility] Laboratory [address] [place] [address] Dr. Ricky Valenzuela Protein [Mass/Vol] 7.1 g/dL Normal 6.4-8.2 [facility] Comment on above: Performed By: #### C MP #### [facility] Laboratory [address] [place] [address] Dr. Ricky Valenzuela Sodium [Moles/Vol] 138 mmol/L Normal 136-145 [facility] Comment on above: Performed By: #### C MP #### [facility] Laboratory [address] [place] [address] Dr. Ricky Valenzuela Urea nitrogen [Mass/Vol] 22.0 mg/dL Critically high 7.0-18.0 [facility] Comment on above: Performed By: #### C MP #### [facility] Laboratory [address] [place] [address] Dr. Ricky Valenzuela Urea nitrogen/Creatinine [Mass ratio] 23.4 mg/mg Normal [facility] Comment on above: Performed By: #### C MP #### [facility] Laboratory [address] [place] [address] Dr. Ricky Valenzuela Cytologyon 07-20-2022 Cytology (NOTE) INTERPRETATION Vaginal material, (ThinPrep vial, Imaging-assisted review): Specimen Adequacy: Satisfactory for evaluation. Descriptive Diagnosis: Negative for intraepithelial lesion or malignancy. Market Manager: CLARK Delacruz(ASCP) Electronically Signed Out ss/09/07/2021 Source: A: Vaginal material, (ThinPrep vial, Imaging-assisted review) Clinical History Hysterectomy Surgery: Salpingostomy; Ovary removal Z12.4 Encounter for screening for malignant neoplasm of cervix GYNECOLOGIC CYTOLOGY REPORT Patient Name: KARINA DE OLIVEIRA [facility] Rec: [id number] Path Number: [id number] [facility] [email or web address] [facility] ANATOMIC PATHOLOGY [address] [place] [id number] Normal [facility] Comment on above: Performed By: #### P PPVP #### [address] [id number] Helper Coordinator: Luca Cummins MD CBC AUTO DIFFon 08-09-2021 BASO # 0.1 103/ul Normal 0.0-0.1 [facility] Comment on above: Performed By: #### C BC #### [facility] Laboratory [address] [place] [address] Dr. Ricky Valenzuela Basophils/100 WBC (Bld) 0.8 % Normal 0.2-2.0 [facility] Comment on above: Performed By: #### C BC #### [facility] Laboratory [address] [place] [address] Dr. Ricky Valenzuela EO # 0.2 103/ul Normal 0.0-0.7 [facility] Comment on above: Performed By: #### C BC #### [facility] Laboratory [address] [address] [address] Ricky Valenzuela Eosinophils/100 WBC (Bld) 2.1 % Normal 0.9-7.0 [facility] Comment on above: Performed By: #### C BC #### [facility] Laboratory [address] [place] [address] Dr. Ricky Valenzuela Erythrocyte distribution width (RBC) [Ratio] 15.2 % Critically high 11.0-15.0 [facility] Comment on above: Performed By: #### C BC #### [facility] Laboratory [address] [place] [address] Dr. Ricky Valenzuela Hematocrit (Bld) [Volume fraction] 41.5 % Normal 36.0-48.0 [facility] Comment on above: Performed By: #### C BC #### [facility] Laboratory [address] [place] [address] Dr. Ricky Valenzuela Hemoglobin (Bld) [Mass/Vol] 13.5 g/dL Normal 12.0-16.0 [facility] Comment on above: Performed By: #### C BC #### [facility] Laboratory [address] [place] [address] Dr. Ricky Valenzuela IG # 0.42 10e3/ul Critically high 0.00-0.[address] [facility] Comment on above: Performed By: #### C BC #### [facility] Laboratory [address] [place] [address] Dr. Ricky Valenzuela IG % 3.8 % Critically high 0.0-0.5 [facility] Comment on above: Performed By: #### C BC #### [facility] Laboratory [address] [place] [address] Dr. Ricky Valenzuela LYMPH # 3.3 103/ul Normal 1.2-3.8 [facility] Comment on above: Performed By: #### C BC #### [facility] Laboratory [address] [place] [address] Dr. Ricky Valenzuela Lymphocytes/100 WBC (Bld) 29.1 % Normal 20.5-60.0 [facility] Comment on above: Performed By: #### C BC #### [facility] Laboratory [address] [place] [address] Dr. Ricky Valenzuela MANUAL DIFF REQ NO Normal [facility] Comment on above: Performed By: #### C BC #### [facility] Laboratory [address] [place] [address] Dr. Ricky Valenzuela MCH (RBC) [Entitic mass] 32.4 pg Normal 26.7-34.0 [facility] Comment on above: Performed By: #### C BC #### [facility] Laboratory [address] [address] [address] Ricky Valenzuela MCHC (RBC) [Mass/Vol] 32.5 g/dL Normal 29.9-35.2 [facility] Comment on above: Performed By: #### C BC #### [facility] Laboratory [address] [address] [address] Ricky Valenzuela MCV (RBC) [Entitic vol] 99.5 fL Critically high 81.0-99.0 [facility] Comment on above: Performed By: #### C BC #### [facility] Laboratory [address] [address] [address] Ricky Valenzuela MONO # 0.8 103/ul Normal 0.3-0.8 [facility] Comment on above: Performed By: #### C BC #### [facility] Laboratory [address] [place] [address] Dr. Ricky Valenzuela Monocytes/100 WBC (Bld) 7.5 % Normal 1.7-12.0 [facility] Comment on above: Performed By: #### C BC #### [facility] Laboratory [address] [place] [address] Dr. Ricky Valenzuela NEUT # 6.3 103/ul Normal 1.4-6.5 [facility] Comment on above: Performed By: #### C BC #### [facility] Laboratory [address] [place] [address] Dr. Ricky Valenzuela Neutrophils/100 WBC (Bld) 56.7 % Normal 43.0-75.0 [facility] Comment on above: Performed By: #### C BC #### [facility] Laboratory [address] [address] [address] Ricky Valenzuela Platelet mean volume (Bld) [Entitic vol] 9.8 fL Normal 9.5-13.5 [facility] Comment on above: Performed By: #### C BC #### [facility] Laboratory [address] [address] [address] Ricky Valenzuela PLT 265 103/ul Normal 150-450 [facility] Comment on above: Performed By: #### C BC #### [facility] Laboratory [address] [address] [address] Ricky Valenzuela RBC 4.17 106/ul Critically low 4.20-5.40 [facility] Comment on above: Performed By: #### C BC #### [facility] Laboratory [address] [address] [address] Ricky Valenzuela WBC 11.2 103/ul Critically high 4.0-11.0 [facility] Comment on above: Performed By: #### C BC #### [facility] Laboratory [address] [address] [address] Ricky Valenzuela GLYCOHEMOGLOBIN A1Con 2021 ADA RECOMMENDATION SEE BELOW Normal [facility] Comment on above: Result Comment: ADA RECOMMENDED LIMIT 4.0 - 6.0 ADA THERAPEUTIC TARGET < 7.0 ACTION SUGGESTED > 7.0 Performed By: #### A 1C ####[facility] [id number] [place] [address]Dr. Ricky Valenzuela Glucose [Mass/Vol] 183 mg/dL Normal [facility] Comment on above: Performed By: #### A 1C ####[facility] [id number] [place] [address]Dr. Ricky Valenzuela HbA1c (Bld) [Mass fraction] 8.0 % Critically high 4.5-6.2 [facility] Comment on above: Performed By: #### A 1C ####[facility] [id number] [place] [address]Dr. Ricky Valenzuela LIPID PROFILEon 08-09-2021 CHOL-HDL RATIO NORM SEE BELOW Normal [facility] Comment on above: Result Comment: 3.3 - 4.4 LOW RISK 4.4 - 7.1 AVERAGE RISK 7.1 - 11.0 MODERATE RISK >11.0 HIGH RISK Performed By: #### C MP, LIPID #### [facility] Laboratory [address] [address] [address] Ricky Valenzuela Cholesterol [Mass/Vol] 239 mg/dL Critically high <=200 [facility] Comment on above: Performed By: #### C MP, LIPID #### [facility] Laboratory [address] [address] [address] Ricky Valenzuela Cholesterol in HDL [Mass/Vol] 36 mg/dL Critically low 40-60 [facility] Comment on above: Performed By: #### C MP, LIPID #### [facility] Laboratory [address] [address] [address] Ricky Valenzuela Cholesterol in LDL [Mass/Vol] 164.2 mg/dL Normal [facility] Comment on above: Performed By: #### C MP, LIPID #### [facility] Laboratory [address] [address] [address] Ricky Valenzuela Cholesterol.total/Cho lesterol in HDL [Mass ratio] 6.6 {ratio} Normal [facility] Comment on above: Performed By: #### C MP, LIPID #### [facility] Laboratory [address] [address] [address] Ricky Valenzuela HDL NORMAL > or = 60 mg/dl - LO W CARDIOVASCULAR RISK <40 mg/dl - HIGH CARDIOVASCULAR RISK Normal [facility] Comment on above: Performed By: #### C MP, LIPID #### [facility] Laboratory [address] [address] [address] Ricky Valenzuela LDL CALC NORMAL SEE BELOW Normal [facility] Comment on above: Result Comment: <100 mg/dl OPTIMAL 100 - 129 mg/dl NEAR OR ABOVE OPTIMAL 130 - 159 mg/dl BORDERLINE HIGH 160 - 189 mg/dl HIGH >190 mg/dl VERY HIGH Performed By: #### C MP, LIPID #### [facility] Laboratory [address] [address] [address] Ricky Valenzuela Triglyceride [Mass/Vol] 194 mg/dL Critically high <=150 [facility] Comment on above: Performed By: #### C MP, LIPID #### [facility] Laboratory [address] [address] [address] Ricky Valenzuela VLDL CALC 38.8 mg/dL Normal [facility] Comment on above: Performed By: #### C MP, LIPID #### [facility] Laboratory [address] [address] [address] Ricky Valenzuela MICROALBUMIN, RAND URon 06-2 mALB 13.1 mg/L Normal <=30.0 [facility] Comment on above: Performed By: #### M ALBR ####[facility] [id number] [address]Dr. Ricky Valenzuela PROF 14(COMP METB)on 022 Albumin [Mass/Vol] 3.3 g/dL Critically low 3.4-5.0 [facility] Comment on above: Performed By: #### C MP, LIPID #### [facility] Laboratory [address] [place] [address] Dr. Ricky Valenzuela Albumin/Globulin [Mass ratio] 0.8 {ratio} Normal [facility] Comment on above: Performed By: #### C MP, LIPID #### [facility] Laboratory [address] [place] [address] Dr. Ricky Valenzuela ALP [Catalytic activity/Vol] 93 U/L Normal 46-116 [facility] Comment on above: Performed By: #### C MP, LIPID #### [facility] Laboratory [address] [place] [address] Dr. Ricky Valenzuela ALT [Catalytic activity/Vol] 37 U/L Normal 14-59 [facility] Comment on above: Performed By: #### C MP, LIPID #### [facility] [address] [place] [address] Dr. Ricky Valenzuela Anion gap [Moles/Vol] 10.9 mmol/L Normal [facility] Comment on above: Performed By: #### C MP, LIPID #### [facility] [address] [place] [address] Dr. Ricky Valenzuela AST [Catalytic activity/Vol] 10 U/L Critically low 15-37 [facility] Comment on above: Performed By: #### C MP, LIPID #### [facility] [address] [place] [address] Dr. Ricky Valenzuela Bilirubin [Mass/Vol] 0.2 mg/dL Normal 0.2-1.0 [facility] Comment on above: Performed By: #### C MP, LIPID #### [facility] [address] [place] [address] Dr. Ricky Valenzuela Calcium [Mass/Vol] 9.0 mg/dL Normal 8.5-10.1 [facility] Comment on above: Performed By: #### C MP, LIPID #### [facility] [address] [place] [address] Dr. Ricky Valenzuela Chloride [Moles/Vol] 100 mmol/L Normal 98-107 [facility] Comment on above: Performed By: #### C MP, LIPID #### [facility] [address] [place] [address] Dr. Ricky Valenzuela CO2 [Moles/Vol] 32.2 mmol/L Critically high 21.0-32.0 [facility] Comment on above: Performed By: #### C MP, LIPID #### [facility] [address] [place] [address] Dr. Ricky Valenzuela Creatinine [Mass/Vol] 0.95 mg/dL Normal 0.55-1.02 [facility] Comment on above: Performed By: #### C MP, LIPID #### [facility] [address] [place] [address] Dr. Ricky Valenzuela EGFR-AF PAPUA [place] >60 Normal >=60 [facility] Comment on above: Performed By: #### C MP, LIPID #### [facility] [address] [place] [address] Dr. Ricky Valenzuela EGFR-NON AF PAPUA [place] >60 Normal >=60 [facility] Comment on above: Performed By: #### C MP, LIPID #### [facility] [address] [place] [address] Dr. Ricky Valenzuela Globulin (S) [Mass/Vol] 4.2 g/dL Normal [facility] Comment on above: Performed By: #### C MP, LIPID #### [facility] [address] [place] [address] Dr. Ricky Valenzuela Glucose [Mass/Vol] 200 mg/dL Critically high 74-106 [facility] Comment on above: Performed By: #### C MP, LIPID #### [facility] [address] [place] [address] Dr. Ricky Valenzuela Potassium [Moles/Vol] 4.1 mmol/L Normal 3.5-5.1 [facility] Comment on above: Performed By: #### C MP, LIPID #### [facility] [address] [place] [address] Dr. Ricky Valenzuela Protein [Mass/Vol] 7.5 g/dL Normal 6.4-8.2 [facility] Comment on above: Performed By: #### C MP, LIPID #### [facility] [address] [place] [address] Dr. Ricky Valenzuela Sodium [Moles/Vol] 139 mmol/L Normal 136-145 [facility] Comment on above: Performed By: #### C MP, LIPID #### [facility] [address] [place] [address] Dr. Ricky Valenzuela Urea nitrogen [Mass/Vol] 13.0 mg/dL Normal 7.0-18.0 [facility] Comment on above: Performed By: #### C MP, LIPID #### [facility] [address] [place] [address] Dr. Ricky Valenzuela Urea nitrogen/Creatinine [Mass ratio] 13.7 mg/mg Normal [facility] Comment on above: Performed By: #### C MP, LIPID #### [facility] [address] [place] [address] Dr. Ricky Valenzuela POINT OF CARE GLUCOSEon 05 Glucose [Mass/Vol] 176 mg/dL Critically high 74-106 [facility] Comment on above: Performed By: #### P OCGLUC #### [facility] [address] [place] [address] Dr. Ricky Valenzuela Vital Signs Date Time Vital Sign Value Performing Clinician Facility 01-18-2023 09:10-0500 Body height 156.21 cm Elle Hendricks Other [facility] 01-18-2023 09:10-0500 Body mass index (BMI) [Ratio] 42.82 kg/m2 Elle Hendricks Other [facility] 01-18-2023 09:10-0500 Body temperature 98.2 [degF] Elle Hendricks Other [facility] Other 01-18-2023 09:10-0500 Body weight 104.51 kg Elle Hendricks Other [facility] Other 01-18-2023 09:10-0500 Diastolic blood pressure 92 mm[Hg] Elle Hendricks Other [facility] Other 01-18-2023 09:10-0500 Respiratory rate 18 /min Elle Hendricks Other [facility] Other 01-18-2023 09:10-0500 SaO2% (BldA) [Mass fraction] 97 % Elle Hendricks Other [facility] Other 01-18-2023 09:10-0500 Systolic blood pressure 145 mm[Hg] Elle Hendricks Other [facility] Other Encounters Encounter Date Encounter Type Care Provider Facility Start: 05-02-2023 End: 05-02-2023 ambulatory SHAIKH MARICEL Not Available Start: 04-30-2023 End: 04-30-2023 ambulatory [facility] Work Phone: Start: 04-30-2023 End: 04-30-2023 Patient encounter procedure [facility] Work Phone: Start: 03-21-2023 Orders Only Shaikh Maricel HOLLIS Work Phone: [facility] Comment on above: Diabetic polyneuropa thy associated with type 2 diabetes mellitus (CMS/HCC) (Primary Dx) Start: 03-19-2023 End: 03-19-2023 ambulatory Ana Luisa Curtis Other [facility] Other Start: 03-19-2023 Office outpatient vi sit 15 minutes Ana Luisa Calvey [facility] Start: 02-25-2023 End: 02-25-2023 ambulatory ELIDA GARCIA Not Available Start: 01-29-2023 End: 01-29-2023 ambulatory SHAIKH MARICEL Not Available Start: 01-23-2023 End: 01-23-2023 ambulatory Ana Luisa Curtis Other [facility] Other Start: 01-23-2023 Office outpatient vi sit 15 minutes Ana Luisa Julianoey [facility] Start: 01-18-2023 End: 01-18-2023 ambulatory Elle Hendricks Other [facility] Other Start: 01-18-2023 Office outpatient vi sit 15 minutes Elle Hendricks [facility] Start: 09-19-2022 End: 09-19-2022 ambulatory Ana Luisa Curtis Other [facility] Other Start: 09-19-2022 Telephone encounter Ana Luisa Curtis [facility] Start: 07-12-[address] JONATHAN EDWARDS Facili ty:[facility]1 Start: 06-07-2022 End: 06-08-[address] JONATHAN EDWARDS Facility:[facility] Start: 05-02-2022 End: 05-02-2022 ambulatory Ana Luisa Curtis Other [facility] Other Start: 05-02-2022 Office outpatient ne w 30 minutes Ana Luisa Curtis [facility] Start: 04-12-2022 End: 04-13-[address] JONATHAN EDWARDS Facility:[facility]1 Start: 03-08-2022 End: 03-09-[address] JONATHAN EDWARDS Facility:[facility] Start: 02-16-2022 End: 02-17-[address] JONATHAN EDWARDS Facility:[facility] Start: 02-09-2022 End: 02-10-[address] RICARDO HOLM . Facility:[facility] Start: 11-16-2021 End: 11-17-[address] JONATHAN EDWARDS Facility:[facility] Start: 11-01-2021 End: 11-02-2021 ambulatory CRYS PIERCE . Facility:[facility]1 Start: 08-30-2021 End: 08-31-2021 ambulatory NIKKIE BARCLAY [facility] Start: 08-30-2021 End: 08-30-2021 Subsequent hospital visit by physician [facility] DO Work Phone: [facility] Laboratory Comment on above: Routine cervical sme ar Start: 08-16-2021 Encounter for genera l adult medical examination without abnormal findings DR RICARDO HOLM . [facility] Start: 08-09-2021 End: 08-10-2021 Encounter for general [...] ion [Identifier] in Cervix by Cyto stain [facility] DO Work Phone: Plan of Treatment Date Care Activity Detail Author Start: 03-08-2026 Screening for malign ant neoplasm of colon [facility] Start: 08-30-2024 Screening for malign ant neoplasm of cervix [facility] Start: 03-20-2024 Screening for malign ant neoplasm of breast Mammogram [facility] Start: 02-27-2024 End: 02-27-2024 Patient encounter procedure 02/27/2024 11:35 AM EST Office Visit [facility] [address] [place] [address] Elida Garcia MD [address] [place] [address] [facility] Start: 02-12-2024 Glaucoma screening Diabetes: R etinopathy Screening [facility] Healthcare Start: 08-11-2023 Influenza vaccination Influenza Vacc ine (#1) [facility] Comment on above: Postponed from 10/12 (Patient Refused) Start: 05-02-2023 End: 05-02-2023 Patient encounter procedure 05/02/2023 2:00 PM EDT Office Visit [facility] [address] [place] [id number] Shaikh Connelly MD [address] [place] [id number] [facility] Start: 02-17-2023 Hemoglobin A1c measurement Diabetes: Hemoglobin A1C [facility] Start: 09-04-2022 End: 09-04-2022 Patient encounter procedure 09/04/2022 Office Visit Obstetrics and Gynecology Nikkie Barclay, ANGEL - CRIST[facility] [address] [facility] [address] [place] [address] [facility] Part of [facility] Start: 10-12-2021 Influenza vaccination Flu vaccine (# 1) [facility] Start: 10-21-2013 Screening for malign ant neoplasm of breast Breast cancer screen [facility] Start: 10-21-2013 Shingles vaccine (1 of 2) Shingles vaccine (1 of 2) [facility] Start: 10-21-2008 Screening for malign ant neoplasm of colon [facility] Start: 2003 Lipid panel Lipids [facility] Start: 10-21-1998 Diabetes screen Diabetes screen [facility] Start: 10-21-1993 Screening for malign ant neoplasm of cervix [facility] Start: 10-21-1982 DTaP/Tdap/Td vaccine (1 - Tdap) DTaP/Tdap/Td vaccine (1 - Tdap) [facility] Start: 10-21-1982 Urine screening for protein Diabetes: Urine Protein Screening [facility] Healthcare Start: 10-21-1981 Hepatitis C screening Hepatitis C sc reen [facility] Start: 10-21-1978 HIV screening HIV screen [facility] Start: 1975 Depression Screen Depression Screen [facility] Start: 04-20-1964 COVID-19 Vaccine (#1) COVID-19 Vacci ne (#1) [facility] Start: 1965 Screening for malign ant neoplasm of colon [facility] Healthcare End: 08-30-2021 Cytopathology procedure, preparation of smear, genital source [facility] Routine Routine cervical smear 1 Occurrences starting 08/30/2021 until 08/30/2021 [email or web address] Work Phone: Comment on above: 1 Occurrences starti ng 08/30/2021 until 08/30/2021 Immunizations Immunization Date Immunization Notes Care Provider Tima garcia 01-14-2017 influenza, injectabl e, quadrivalent, preservative free [facility] Payers Date Payer Category Payer Unknown [employer] [id number] 2022-Present [phone] [address] [address] [place] [address] [id number] 2012 Medicare MEDICARE MEDICAR E PART B [id number] 2012-[place] [address] [place] [address] Medicare [id number] 1963 Unknown [id number] 2.16.840.1.427935.3.579.2.17 3 1963 Unknown [id number] 2.16.840.1.437034.3.579.2.59 3 1963 Unknown [id number] 2.16.840.1.234911.3.579.2.59 3 1963 Unknown [id number] 2.16.840.1.975088.3.579.2.59 3 1963 Unknown [id number] 2.16.840.1.048198.3.579.2.59 3 1963 Unknown [id number] 2.16.840.1.740000.3.579.2.59 3 1963 Unknown [id number] 2.16.840.1.916375.3.579.2.59 3 1963 Unknown [id number] 2.16.840.1.755944.3.579.2.59 3 1963 Unknown [id number] 2.16.840.1.952113.3.579.2.59 3 1963 Unknown [id number] 2.16.840.1.057473.3.579.2.59 3 1963 Unknown [id number] 2.16.840.1.314804.3.579.2.59 3 1963 Unknown [id number] 2.16.840.1.093388.3.579.2.59 3 1963 Unknown [id number] 2.16.840.1.891198.3.579.2.59 3 1963 Unknown [id number] 2.16.840.1.869135.3.579.2.59 3 1963 Unknown [id number] 2.16.840.1.486296.3.579.2.59 3 1963 Unknown [id number] 2.16.840.1.046030.3.579.2.59 3 1963 Unknown [id number] 2.16.840.1.532199.3.579.2.59 3 1963 Unknown [id number] 2.16.840.1.859504.3.579.2.12 59 1963 Unknown [id number] 2.16.840.1.703095.3.579.2.12 59 1963 Unknown [id number] 2.16.840.1.728172.3.579.2.12 59 1959 Medicare [id number] 1.2.840.955112.1.13.239.2.7. 3.618187.315 1959 Unknown [id number] 1.2.840.450756.1.13.239.2.7. 3.904946.315 1959 Unknown [id number] 2.16.840.1.610206.19 Medicare Medicare [id number] Self-pay Self Pay [id number] Social History Date Type Detail Facility Start: 08-30-2021 Tobacco smoking stat [facility] Smokes tobacco daily [facility] Phone: History of tobacco use Cigarette Smoker [employer] Phone: Start: 08-30-2021 End: 01-29-2023 Tobacco use and exposure Smokeless tobacco non-user [facility] Phone: Start: 08-30-2021 Alcohol intake Current drinke r of alcohol (finding) [facility] Phone: Start: 08-30-2021 History SDOH Alcohol Comment occasional [facility] Phone: Start: 1965 Sex Assigned At Not on file [facility] [employer] Phone: Start: 08-20-2021 End: 08-30-2021 Exposure to SARS-CoV-2 (event) Not sure [employer] Start: 02-25-2023 Sex Assigned At [facility] [employer] Other Start: 01-23-2023 End: 01-29-2023 Tobacco smoking status [facility] Ex-smoker [facility] History of tobacco use Current smoker [facility] Start: 01-29-2023 End: 02-25-2023 Cigarettes smoked current (pack per day) - Reported 0.5 [facility] Start: 02-25-2023 Alcohol intake Lifetime non-d gus (finding) [facility] Start: 1965 Sex Assigned At Female [facility] Medical Equipment Procedure Code Equipment Code Equipment Origin al Text Equipment Identifier Dates USE TO TEST BLOO D SUGAR TWICE DAILY [id number] Start: 06-08-2021 Clinical Notes 06-20-2021 to 03-19-2023 [...] Mar, Left hand pain (ICD-10 - M79.642) [facility] Other 12-13-2023 Evaluation note* Encounter Date Diagnosis [...] noted. Patient will f/u in 4 weeks. [facility] Other 12-08-2023 Evaluation note* Encounter Date Diagnosis [...] performed at [facility] which revealed degenerative changes in the hand as well as a remote avulsion fracture of the thumb. Patient states her family doctor is treating her for gout in her hand. Jan, History of gout (ICD-10 - Z87.39) Jan, Other Gout material w as printed [facility] Other 08-09-2023 Evaluation note* Encounter Date Diagnosis Assessment Notes Treatment Notes Treatment Clinical Notes Sep, Right wrist pain (ICD-10 - M25.531) [facility] Other 04-27-2023 NoteCONSULTATION CONSULTATION DATE: 06/07/2022 TO: [...] our patients to inform us about any [id number] medications or herbal remedies/nutritional supplements/alternative remedies. 2. [...] care provider.[facility] [id number] Evaluation note * Encounter Date Diagnosis Assessment [...] understanding and is agreeable to treatment plan. [facility] Other 01-26-2023 NoteCONSULTATION PROCEDURE DATE: 03/08/2022 PREOPERATIVE [...] the clinic.[facility] [id number] NotePROCEDURE: XR KNEE LT 4V or > [...] authenticated by: PATTIE SALTER Date: 2022-02-16 11:29[facility] [id number] NoteCONSULTATION CONSULTATION DATE: 02/09/2022 HISTORY OF PRESENT [...] this plan.[facility] [id number] NotePROCEDURE: XR WRIST RT MIN 3 V COMPARISON: None. HISTORY: Injury of right wrist FINDINGS: BONES:No acute fracture or dislocation. Corticated bone fragment identified along the first carpometacarpal joint [degenerative in nature SOFT TISSUES:Moderate diffuse soft tissue swelling EFFUSION:None visible. OTHER: Negative. IMPRESSION: Soft tissue swelling, no acute fracture Electronically authenticated by: RYAN GOLDMAN Date: 2021-11-16 18:59[facility] [id number] NoteCONSULTATION CONSULTATION DATE: 11/01/2021 HISTORY OF PRESENT [...] this plan.[facility] [id number] NoteCONSULTATION PROCEDURE DATE: 11/01/2021 PRE AND POSTOPERATIVE [...] the clinic.[facility] [id number] NoteCONSULTATION PROCEDURE DATE: 08/09/2021 PREOPERATIVE DIAGNOSIS: Bilateral [...] will be followed up in the clinic. [facility] Signed and Approved by: CRYS PIERCE . 08/10/2021 13:37:00[facility]06-08-2022 NoteCONSULTATION CONSULTATION DATE: 07/19/2021 HISTORY OF [...] injections. Patient acknowledges and all questions answered. [facility] Signed and Approved by: CRYS PIERCE . 07/20/2021 10:33:00[facility]05-25-2022 NotePROCEDURE: XR FOOT RT MIN [...] Electronically authenticated by: PATTIE SALTER Date: 2021-07-05 11:11[facility]05-10-2022 NoteCONSULTATION CONSULTATION DATE: 06/20/2021 CHIEF [...] like to proceed. CC: Jonathan Edwards M.D. [facility] Signed and Approved by: DR RICARDO HOLM . 06/27/2021 10:40:00[facility] Diagnosis Routine cervical smear Screening for malignant neoplasm of the cervix documented in this encounter [facility] Work Phone: evaluation note* Diagnosis Diabetic polyneuropathy associated with type 2 diabetes mellitus (CMS/HCC)- Primary documented in this encounter [facility] HealthcareEvaluation noteNo assessment information availableFostoria City Hospital Work Phone: History general Narrative - Reported* Type Description Date Medical History GERD (gastroesophageal reflux di sease) Medical History Migraine headache Medical History Arthritis Medical History Edema of both legs Medical History Diabetes mellitus, type 2 Medical History Chronic back pain Surgical History ablasion Surgical History back surgery Surgical History hysterectomy Surgical History tubal ligation Hospitalization History see above [facility] Other Summary Purpose Family History No Family [...] Care Teams (unrecognized sec tion and content) [employer] Relationship Specialty Start Date End Date Sr Jonathan Edwards DO [address] [place] [address] PCP - General Family Medicine 08/30/21 [employer] Relationship Specialty Start Date End Date Shaikh [...] DATE CREATED AUTHOR AUTHOR'S ORGANIZ ATION 05/04/2023 [facility] dical Specialists EPIC REASON FOR VISIT [...] BE BASED ON THE PRIMARY CLINICAL RECORDS. [facility]. provides no warranty or guarantee of the accuracy or completeness of information in this document.
[2023-06-08 18:39] VITALS: BP 104/81; PULSE 104; TEMP 37; O2SAT 97
--- NOTE | 2023-06-08 18:49 | P.HP_ITS ---
HPI H&P: HPI History of Present Illness Chief complaint: FELL LEFT FOOT, L FOOT AND FIB FX Narrative: Patient had a fall at home, had instant pain and swelling at the time of the fall. The fall was not related to any other symptoms such as chest pain, shortness of breath, dizziness, vertigo. No focal neurological deficits at the time as well. Patient states it was just a fall. Patient has had recent MRI for possible lumbar fracture patient denies preceding pain at the time of the fall in her back. When I saw patient in the emergency room, she was resting comfortably, denies any complaints such as chest pain, shortness of breath, UTI symptoms. She does go to the bathroom frequently but that is her normal Opioid HPI Opioid Management Most Recent Opioid Data: Last Pain Scale 8 06/08/23 18:00 Last ED Pain Assessment 06/08/23 18:00 Last MAR Pain Assessment 06/08/23 18:07 Review of Systems ROS Status of ROS 10 or more systems reviewed and unremark able except as noted in history and below PFSH PFS Medical History Acid reflux ?K21.9 - Gastro-esophageal reflux disease without esophagitis (ICD-10) Back pain ?M54.9 - Dorsalgia, unspecified (ICD-10) Diabetes ?E11.9 - Type 2 diabetes mellitus without complications (ICD-10) Heartburn ?R12 - Heartburn (ICD-10) Neck pain ?M54.2 - Cervicalgia (ICD-10) Obesity ?E66.9 - Obesity, unspecified (ICD-10) Osteoarthritis ?M19.90 - Unspecified osteoarthritis, unspecified site (ICD-10) Smoker ?F17.200 - Nicotine dependence, unspecified, uncomplicated (ICD-10) TMJ (dislocation of temporomandibular joint) ?S03.00XA - Dislocation of jaw, unspecified side, initial encounter (ICD-10) Tubal ?O00.109 - Unspecified tubal without intrauterine (ICD- 10) Upper back pain ?M54.9 - Dorsalgia, unspecified (ICD-10) Surgical History H/O: hysterectomy ?Z90.710 - Acquired absence of both cervix and uterus (ICD-10) S/P lumbar spine operation ?Z98.890 - Other specified postprocedural states (ICD-10) Meds Home Medications and Allergies Home Medications ?Medication ?Instructions ?Recorded ?Confirmed ?Type alendronate 70 mg tablet 70 mg PO QWEEK 07/20/22 06/08/23 History allopurinol 300 mg tablet 300 mg PO DAILY 07/20/22 06/08/23 History aspirin 81 mg tablet,delayed 81 mg PO DAILY 07/20/22 06/08/23 History release (Adult Aspirin Regimen) baclofen 10 mg tablet 10 mg PO TID 07/20/22 06/08/23 History cholecalciferol (vitamin D3) 25 1,000 unit PO DAILY 07/20/22 06/08/23 History mcg (1,000 unit) capsule diclofenac sodium 75 mg 75 mg PO BID 07/20/22 06/08/23 History tablet,delayed release divalproex 500 mg tablet,delayed 500 mg PO BID 07/20/22 06/08/23 History release (Depakote) glucosamine [id number] 1 tab PO DAILY 07/20/22 06/08/23 History krzysztof 1,500 mg-400 unit-100 mg tablet (Osteo Bi-Flex (5-Loxin)) glyburide 1.25 mg tablet 1.25 mg PO DAILY 07/20/22 06/08/23 History hydrochlorothiazide 25 mg tablet 25 mg PO DAILY 07/20/22 06/08/23 History lactobacillus combo no.13 1 1 cap PO DAILY 07/20/22 06/08/23 History billion cell capsule,delayed release (Probiotic Pearls Complete) multivitamin 1 tab PO DAILY 07/20/22 06/08/23 History oxycodone-acetaminophen 5 mg-325 1 tab PO DAILY 07/20/22 06/08/23 History mg tablet prasterone (dhea) 50 mg capsule 50 mg PO DAILY 07/20/22 06/08/23 History (DHEA) pregabalin 50 mg capsule (Lyrica) 50 mg PO TID 07/20/22 06/08/23 History methocarbamol 750 mg tablet 750 mg PO .QHS #30 tabs 05/22/23 06/08/23 Rx oxycodone-acetaminophen 5 mg-325 1 tab PO DAILY PRN pain #30 tabs 05/22/23 06/08/23 Rx mg tablet (Percocet) famotidine 20 mg tablet 20 mg PO BID 06/08/23 06/08/23 History metformin 1,000 mg tablet 1,000 mg PO BID 06/08/23 06/08/23 History rizatriptan 10 mg tablet 10 mg PO Q2H 06/08/23 06/08/23 History rosuvastatin 20 mg tablet 20 mg PO DAILY 06/08/23 06/08/23 History semaglutide 0.25 mg or 0.5 mg (2 0.25 mg subcut .once a week 06/08/23 06/08/23 History mg/3 mL) subcutaneous pen injector (Ozempic) Allergies Allergy/AdvReac Type Severity Reaction Status Date / Time No Known Drug Allergies Allergy Verified 10/30/22 07:18 Exam Constitutional Vital Signs, click to edit/add: Last Vital Signs Temp 98.6 F 06/08/23 18:39 Pulse 104 H 06/08/23 18:39 Resp 16 06/08/23 18:39 BP 104/81 06/08/23 18:39 Pulse Ox 97 06/08/23 18:39 O2 Del Method Room Air 06/08/23 18:39 Documenting provider has reviewed patient's vital signs: yes Common normals: no apparent distress Chest Common normals: inspection of chest normal and palpation of chest normal Respiratory Common normals: normal respiratory effort and no retractions Cardio Common normals: regular rate and regular rhythm GI Common normals: Normal to inspection, nondistended, normoactive bowel sounds present, soft to palpation and non-tender Extremity Common normals: abnormal to inspection (Splint on lower extremity) Results Labs Labs: Short CBC 06/08/23 Range/Units 16:55 WBC 9.8 (4.0-11.0) 10^3/uL Hgb 12.2 (12.0-16.0) g/dL Hct 38.1 (36.0-48.0) % Plt Count 188 (150-450) 10^3/uL BMP 06/08/23 16:55 Sodium 143 Potassium 4.1 Chloride 102 Carbon Dioxide 31.1 BUN 18.0 Creatinine 1.03 H Glucose 112 H Calcium 9.1 Liver Function 06/08/23 Range/Units 16:55 Total Bilirubin 0.3 (0.2-1.0) mg/dL AST 15 (15-37) U/L ALT 24 (14-59) U/L Alkaline Phosphatase 80 (46-116) U/L Albumin 3.1 L (3.4-5.0) g/dL Urine 06/08/23 Range/Units 17:50 Urine Color Lt. yellow (YELLOW) Urine Clarity Clear (CLEAR) Urine pH 6.0 (5.0-9.0) Ur Specific [place] <=1.005 A (1.005-1.025) Urine Protein Negative (NEG/TRACE) mg/dL Urine Glucose (UA) Negative (NEGATIVE) mg/dL Assessment and Plan Assessment and Plan (1) Fracture of foot: (2) Closed fibular fracture: Plan Patient with uncontrolled high blood pressure, presented with increasing pain in foot, found to have multiple fractures. Also fibular fracture proximal. Consultation has been placed to orthopedics. Uncontrolled hypertension-will continue with home medications but use as needed hydralazine Lumbar radiculopathy-continue with home medications GERD-continue with home medications NIDDM-insulin sliding scale Admission status: Initially thought observation status, patient likely to have surgical intervention, her medically necessary treatment will span 2 midnights, place patient inpatient status
[2023-06-08 18:51] VITALS: BMI 42.5
[2023-06-08 18:52] VITALS: BP 148/82; PULSE 100; TEMP 36.6; O2SAT 94
[2023-06-08] MEDS: LACTATED RINGER'S SOLUTION 1,000 ML 100 ML IV (20:42)
[2023-06-08] MEDS: OXYCODONE HCL/ACETAMINOPHEN 5MG/325MG 1 TAB PO (20:42)
[2023-06-08 20:47] LABS: Glucometer 154 mg/dL (74-106)
[2023-06-08] MEDS: DIVALPROEX SODIUM 500 MG TABLET.DR PO (21:19)
[2023-06-08] MEDS: PREGABALIN 50 MG CAPSULE PO (21:19)
[2023-06-08] MEDS: METHOCARBAMOL 500 MG TABLET 750 MG PO (21:19)
[2023-06-08 22:00] VITALS: BP 121/74; PULSE 110; TEMP 36.9; O2SAT 91
[2023-06-09] VITALS (28 sets, daily range): BP systolic 102–151; BP diastolic 62–86; PULSE 105–126; TEMP 36.7–36.8; O2SAT 84–96
[2023-06-09] MEDS: MORPHINE SULFATE 2 MG/ML SYRINGE IV (03:38)
[2023-06-09 05:29] LABS: Anion Gap 10.9; BUN Creatinine Ratio 14.1; Calcium 9.2 mg/dL (8.5-10.1); Carbon Dioxide 32.4 mmol/L (21.0-32.0); Chloride 105 mmol/L (98-107); Estimated GFR (African America >60 (>=60); Estimated GFR (Non-African Ame >60 (>=60); Glucose 135 mg/dL (74-106); Potassium 4.3 mmol/L (3.5-5.1); Sodium 144 mmol/L (136-145)
[2023-06-09 05:33] LABS: Basophils Percent Auto 0.5 % (0.2-2.0); Eosinophils Absolute Auto 0.3 10^3/uL (0.0-0.7); Hemoglobin 11.6 g/dL (12.0-16.0); Immature Granulocytes Abs Auto 0.09 10^3/uL (0.00-0.03); Immature Granulocytes Pct Auto 1.1 % (0.0-0.5); Lymphocytes Absolute Auto 2.3 10^3/uL (1.2-3.8); Mean Corpuscular HGB Conc 31.4 g/dL (29.9-35.2); Mean Corpuscular Hemoglobin 30.3 pg (26.7-34.0); Mean Corpuscular Volume 96.6 fL (81.0-99.0); Mean Platelet Volume 11.1 fL (9.5-13.5); Monocytes Absolute Auto 0.8 10^3/uL (0.3-0.8); Monocytes Percent Auto 9.1 % (1.7-12.0); Neutrophils Absolute Auto 4.9 10^3/uL (1.4-6.5); Neutrophils Percent Auto 58.3 % (43.0-75.0); Platelet Count 179 10^3/uL (150-450); Red Blood Count 3.83 10^6/uL (4.20-5.40); Red Cell Distribution Width 14.2 % (11.0-15.0); White Blood Count 8.3 10^3/uL (4.0-11.0)
[2023-06-09] MEDS: LACTATED RINGER'S SOLUTION 1,000 ML 100 ML IV (05:58)
[2023-06-09] MEDS: BACLOFEN 10 MG TABLET PO (05:58)
[2023-06-09] MEDS: PREGABALIN 50 MG CAPSULE PO (05:58)
[2023-06-09] MEDS: CHOLECALCIFEROL (VITAMIN D3) 25 MCG/1,000 UNITS TABLET PO (08:34)
[2023-06-09] MEDS: ALLOPURINOL 300 MG TABLET PO (08:34)
[2023-06-09] MEDS: OXYCODONE HCL/ACETAMINOPHEN 5MG/325MG 1 TAB PO ×3 (08:34→21:19)
[2023-06-09] MEDS: MULTIVITAMIN TABLET 1 TAB PO (08:35)
[2023-06-09] MEDS: DIVALPROEX SODIUM 500 MG TABLET.DR PO ×2 (08:35→21:20)
[2023-06-09] MEDS: FAMOTIDINE 20 MG TABLET PO ×2 (08:35→21:20)
--- NOTE | 2023-06-09 09:45 | PM.CN ---
Consult Note: [facility] Data of Consult Consult date: 06/09/23 Requesting Physician: Rivas Rendon MD Primary Care Provider: Shaikh Maricel MD Consult Narrative Reason for consult: Left foot fracture Narrative: patient is a 57-year-old female who related to a ground-level fall while walking into her bathroom stating my knees just gave out. She did not hit her head or lose consciousness after the fall had extreme foot pain and was unable to place weight to or for was taken to the emergency department. X-rays were concerning for a midfoot fracture as well as proximal fibular head/neck fracture was confirmed. CT scan confirmed midfoot fracture dislocation with comminution and smith displacement of the 1st tarsometatarsal joint. Lesser metatarsal fractures three, four and five are nondisplaced while there is mild angulation of 2nd metatarsal shaft fracture. She was admitted under Dr. Rendon's care and splinted in the emergency department At bedside patient is resting comfortably and pain is currently controlled. She relates to chronic back pain which is much different than what he typically is. She denies systemic signs of infection. Patient did have a DEXA scan in March which was read as normal bone density however she relates that she is on Fosamax once weekly which was initially prescribed by pain management. cc:: CC: Rivas Rendon MD Review of Systems ROS Status of ROS 10 or more systems reviewed and unremarkable except as noted in history and below [facility] Medical History Acid reflux ?K21.9 - Gastro-esophageal reflux disease without esophagitis (ICD-10) Back pain ?M54.9 - Dorsalgia, unspecified (ICD-10) Diabetes ?E11.9 - Type 2 diabetes mellitus without complications (ICD-10) Heartburn ?R12 - Heartburn (ICD-10) Neck pain ?M54.2 - Cervicalgia (ICD-10) Obesity ?E66.9 - Obesity, unspecified (ICD-10) Osteoarthritis ?M19.90 - Unspecified osteoarthritis, unspecified site (ICD-10) Smoker ?F17.200 - Nicotine dependence, unspecified, uncomplicated (ICD-10) TMJ (dislocation of temporomandibular joint) ?S03.00XA - Dislocation of jaw, unspecified side, initial encounter (ICD-10) Tubal ?O00.109 - Unspecified tubal without intrauterine (ICD-10) Upper back pain ?M54.9 - Dorsalgia, unspecified (ICD-10) Surgical History H/O: hysterectomy ?Z90.710 - Acquired absence of both cervix and uterus (ICD-10) S/P lumbar spine operation ?Z98.890 - Other specified postprocedural states (ICD-10) Family History (Updated 06/08/23 @ 19:39 by Tere Sun) Mother Family history of CHF (congestive heart failure) Family history of cancer Family history of diabetes mellitus Family history of hypertension Family history of myocardial infarction Social History (Updated 06/08/23 @ 19:41 by Tere Sun) Within the past year, how often did you have a drink containing alcohol: monthly or less Smoking status: Light tobacco smoker Non-prescribed substance use: denies use Previous occupational history: retired/disability Highest level of school completed/degree received: some college, no degree Are you now , , , , never or living with a partner: In a typical week, how many times do you talk on the telephone with family, friends, or neighbors: 3 or more times per week How often do you get together with friends or relatives: 3 or more times per week How often do you attend denominational or evangelical services: never Little interest or pleasure in doing things: not at all Feeling down, depressed, or hopeless: not at all Feel stressed/tense/nervous/anxious/difficulty sleeping: not at all Do you think of yourself as: straight/heterosexual Gender Identity: female Meds Home Medications and Allergies Home Medications ?Medication ?Instructions ?Recorded ?Confirmed ?Type alendronate 70 mg tablet 70 mg PO QWEEK 07/20/22 06/08/23 History allopurinol 300 mg tablet 300 mg PO DAILY 07/20/22 06/08/23 History aspirin 81 mg tablet,delayed 81 mg PO DAILY 07/20/22 06/08/23 History release (Adult Aspirin Regimen) baclofen 10 mg tablet 10 mg PO TID PRN muscle spasm 07/20/22 06/08/23 History cholecalciferol (vitamin D3) 25 1,000 unit PO DAILY 07/20/22 06/08/23 History mcg (1,000 unit) capsule diclofenac sodium 75 mg 75 mg PO BID 07/20/22 06/08/23 History tablet,delayed release divalproex 500 mg tablet,delayed 500 mg PO BID 07/20/22 06/08/23 History release (Depakote) glucosamine [id number] 1 tab PO DAILY 07/20/22 06/08/23 History krzysztof 1,500 mg-400 unit-100 mg tablet (Osteo Bi-Flex (5-Loxin)) glyburide 1.25 mg tablet 1.25 mg PO DAILY 07/20/22 06/08/23 History hydrochlorothiazide 25 mg tablet 25 mg PO DAILY 07/20/22 06/08/23 History lactobacillus combo no.13 1 1 cap PO DAILY 07/20/22 06/08/23 History billion cell capsule,delayed release (Probiotic Pearls Complete) multivitamin 1 tab PO DAILY 07/20/22 06/08/23 History oxycodone-acetaminophen 5 mg-325 1 tab PO DAILY 07/20/22 06/08/23 History mg tablet prasterone (dhea) 50 mg capsule 50 mg PO DAILY 07/20/22 06/08/23 History (DHEA) pregabalin 50 mg capsule (Lyrica) 50 mg PO .q am 07/20/22 06/08/23 History methocarbamol 750 mg tablet 750 mg PO .QHS #30 tabs 05/22/23 06/08/23 Rx oxycodone-acetaminophen 5 mg-325 1 tab PO DAILY PRN pain #30 tabs 05/22/23 06/08/23 Rx mg tablet (Percocet) famotidine 20 mg tablet 20 mg PO BID 06/08/23 06/08/23 History metformin 1,000 mg tablet 1,000 mg PO BID 06/08/23 06/08/23 History pregabalin 100 mg capsule (Lyrica) 100 mg PO .q hs 06/08/23 06/08/23 History rizatriptan 10 mg tablet 10 mg PO Q2H PRN migraine headache 06/08/23 06/08/23 History rosuvastatin 20 mg tablet 20 mg PO DAILY 06/08/23 06/08/23 History semaglutide 0.25 mg or 0.5 mg (2 0.25 mg subcut .once a week 06/08/23 06/08/23 History mg/3 mL) subcutaneous pen injector (Ozempic) pregabalin 75 mg capsule 75 mg PO TID PRN NEUROPATHY 06/09/23 06/09/23 History Allergies Allergy/AdvReac Type Severity Reaction Status Date / Time No Known Drug Allergies Allergy Verified 10/30/22 07:18 Exam Narrative Exam Narrative: Splint is clean dry and intact. No calf pain on squeeze. Passive and active range of motion of the digits was no pain. Light touch sensation to left toes is slightly altered compared to the right. Compartments are soft and compressible and there is no pain out of proportion Constitutional Vital Signs, click to edit/add: Last Vital Signs Temp 98.3 F 06/09/23 07:34 Pulse 118 H 06/09/23 07:34 Resp 18 06/09/23 07:37 BP 102/70 06/09/23 07:34 Pulse Ox 90 L 06/09/23 07:34 O2 Del Method Room Air 06/09/23 07:34 O2 Flow Rate 1 06/09/23 07:34 Results Labs Labs: Short CBC 06/08/23 06/09/23 Range/Units 16:55 05:00 WBC 9.8 8.3 (4.0-11.0) 10^3/uL Hgb 12.2 11.6 L (12.0-16.0) g/dL Hct 38.1 37.0 (36.0-48.0) % Plt Count 188 179 (150-450) 10^3/uL BMP 06/08/23 06/09/23 16:55 05:00 Sodium 143 144 Potassium 4.1 4.3 Chloride 102 105 Carbon Dioxide 31.1 32.4 H BUN 18.0 12.0 Creatinine 1.03 H 0.85 Glucose 112 H 135 H Calcium 9.1 9.2 Liver Function 06/08/23 Range/Units 16:55 Total Bilirubin 0.3 (0.2-1.0) mg/dL AST 15 (15-37) U/L ALT 24 (14-59) U/L Alkaline Phosphatase 80 (46-116) U/L Albumin 3.1 L (3.4-5.0) g/dL Urine 06/08/23 Range/Units 17:50 Urine Color Lt. yellow (YELLOW) Urine Clarity Clear (CLEAR) Urine pH 6.0 (5.0-9.0) Ur Specific [place] <=1.005 A (1.005-1.025) Urine Protein Negative (NEG/TRACE) mg/dL Urine Glucose (UA) Negative (NEGATIVE) mg/dL Assessment and Plan Assessment and Plan (1) Fracture of foot: (2) Closed fibular fracture: Qualifiers: Encounter type: initial encounter Fibula location: proximal Fracture morphology: other fracture Laterality: left Qualified Code(s): S82.832A - Other fracture of upper and lower end of left fibula, initial encounter for closed fracture (3) Fracture of medial cuneiform of left foot: Qualifiers: Encounter type: initial encounter Fracture type: closed Fracture alignment: displaced Qualified Code(s): S92.242A - Displaced fracture of medial cuneiform of left foot, initial encounter for closed fracture (4) Fracture of metatarsal of left foot, closed: Qualifiers: Encounter type: initial encounter Metatarsal bone: first Fracture alignment: displaced Qualified Code(s): S92.312A - Displaced fracture of first metatarsal bone, left foot, initial encounter for closed fracture (5) Dislocation of foot, left, closed: Assessment and Plan: maintain splint, continue ice, elevation and pain management. I along discussion with patient and regarding the risks and benefits of surgical versus nonsurgical treatment. I explained that regardless she would be eight weeks of nonweightbearing but given the displacement and instability along the medial column my concern is for chronic pain, dysfunction and posttraumatic arthritis. I reviewed the risk of surgical intervention which include painful hardware, numbness and tingling, wound, infection, blood clot, nonunion, delayed union, malunion and need for additional surgery Qualifiers: Encounter type: initial encounter Qualified Code(s): S93.305A - Unspecified dislocation of left foot, initial encounter Plan patient seen and evaluated. Patient education provided and all questions were answered to her satisfaction. Plan is for midfoot fusion/ORIF of the left foot tomorrow Proposed anesthesia Gen. and regional Dr. Rendon and nursing supervisor corduroy cutting notified Nothing by mouth after midnight
--- NOTE | 2023-06-09 10:19 | P.PN_ITS ---
Progress Note: Subjective Subjective Interval history: On rounds this morning, she states she feels back to her normal self. She did have an issue overnight with significant hypotension and hypoxia. Exam Constitutional Vital Signs, click to edit/add: Last Vital Signs Temp 98.3 F 06/09/23 07:34 Pulse 118 H 06/09/23 07:34 Resp 18 06/09/23 07:37 BP 102/70 06/09/23 07:34 Pulse Ox 90 L 06/09/23 07:34 O2 Del Method Room Air 06/09/23 07:34 O2 Flow Rate 1 06/09/23 07:34 Documenting provider has reviewed patient's vital signs: yes Common normals: no apparent distress Chest Common normals: inspection of chest normal and palpation of chest normal Respiratory Common normals: normal respiratory effort and no retractions Auscultation: diminished lung sounds Cardio Common normals: regular rate and regular rhythm GI Common normals: Normal to inspection, nondistended, normoactive bowel sounds present, soft to palpation and non-tender Extremity Common normals: abnormal to inspection (Splint on lower extremity) Progress Note: Objective Labs Labs: Short CBC 06/08/23 06/09/23 Range/Units 16:55 05:00 WBC 9.8 8.3 (4.0-11.0) 10^3/uL Hgb 12.2 11.6 L (12.0-16.0) g/dL Hct 38.1 37.0 (36.0-48.0) % Plt Count 188 179 (150-450) 10^3/uL BMP 06/08/23 06/09/23 16:55 05:00 Sodium 143 144 Potassium 4.1 4.3 Chloride 102 105 Carbon Dioxide 31.1 32.4 H BUN 18.0 12.0 Creatinine 1.03 H 0.85 Glucose 112 H 135 H Calcium 9.1 9.2 Liver Function 06/08/23 Range/Units 16:55 Total Bilirubin 0.3 (0.2-1.0) mg/dL AST 15 (15-37) U/L ALT 24 (14-59) U/L Alkaline Phosphatase 80 (46-116) U/L Albumin 3.1 L (3.4-5.0) g/dL Urine 06/08/23 Range/Units 17:50 Urine Color Lt. yellow (YELLOW) Urine Clarity Clear (CLEAR) Urine pH 6.0 (5.0-9.0) Ur Specific [place] <=1.005 A (1.005-1.025) Urine Protein Negative (NEG/TRACE) mg/dL Urine Glucose (UA) Negative (NEGATIVE) mg/dL Progress Note: A&P Assessment and Plan (1) Fracture of foot: (2) Closed fibular fracture: Plan Patient with uncontrolled high blood pressure, presented with increasing pain in foot, found to have multiple fractures. Also proximal fibular fracture. Consultation has been placed to podiatry. Acute hypoxia and acute hypotension-this is likely secondary to 1 dose of morphine. Will change patient to oral pain medications and avoid IV narcotics. Uncontrolled hypertension-will continue with home medications but use as needed hydralazine Lumbar radiculopathy-continue with home medications GERD-continue with home medications NIDDM-insulin sliding scale-stable hold oral agents for now, surgery in the a.m. Mild protein calorie malnutrition-diet management as an outpatient Iron deficient anemia-down somewhat today. Monitor as an outpatient and daily Admission status: Initially thought observation status, patient will have surgical intervention tomorrow, medically necessary treatment will span 2 midnights, inpatient status ?
[2023-06-09 11:14] LABS: Glucometer 127 mg/dL (74-106)
[2023-06-09] MEDS: LACTATED RINGER'S SOLUTION 1,000 ML 50 ML IV (15:28)
[2023-06-09 16:15] LABS: Glucometer 145 mg/dL (74-106)
[2023-06-09] MEDS: INSULIN ASPART 300 UNIT/3 ML PEN SUBQ ×2 (16:27→21:20)
[2023-06-09] MEDS: IPRATROPIUM/ALBUTEROL SULFATE 3 ML AMPUL.NEB IH ×2 (16:52→23:48)
[2023-06-09] MEDS: RIZATRIPTAN 10 MG 10 EACH PO (17:56)
[2023-06-09 20:39] LABS: Glucometer 169 mg/dL (74-106)
[2023-06-09] MEDS: METHOCARBAMOL 500 MG TABLET 750 MG PO (21:19)
[2023-06-09] MEDS: BACLOFEN 10 MG TABLET 20 MG PO (21:19)
[2023-06-09] MEDS: PREGABALIN 100 MG CAPSULE PO (21:20)
[2023-06-10] VITALS (48 sets, daily range): BP systolic 115–157; BP diastolic 71–95; PULSE 95–133; TEMP 36.6–37.3; O2SAT 85–98
--- NOTE | 2023-06-10 | FL_ITS ---
[address] [address] Patient Name: KARINA DE OLIVEIRA MRN: [id number] date: 1965 Sex: F Assigned Patient Location: [place] Current Patient Location: [place] Accession/Order Number: [id number] Exam Date: 06/10/2023 13:00 Report Date: 06/11/2023 07:54 At the request of: SUSSY JONES Procedure: FL fluoroscopy <1hr NON-READ EXAM: FL fluoroscopy <1hr NON-READ HISTORY: TECHNIQUE: FINDINGS: Please see Operative Report. Electronically authenticated by: RADIOLOGIST NO Date: 06/11/2023 07:54
[2023-06-10 04:48] LABS: Basophils Absolute Auto 0.1 10^3/uL (0.0-0.1); Basophils Percent Auto 0.6 % (0.2-2.0); Eosinophils Absolute Auto 0.1 10^3/uL (0.0-0.7); Eosinophils Percent Auto 1.4 % (0.9-7.0); Hematocrit 34.1 % (36.0-48.0); Immature Granulocytes Abs Auto 0.17 10^3/uL (0.00-0.03); Lymphocytes Absolute Auto 2.6 10^3/uL (1.2-3.8); Lymphocytes Percent Auto 30.8 % (20.5-60.0); Mean Corpuscular HGB Conc 32.3 g/dL (29.9-35.2); Mean Corpuscular Volume 96.1 fL (81.0-99.0); Mean Platelet Volume 10.8 fL (9.5-13.5); Monocytes Absolute Auto 1.1 10^3/uL (0.3-0.8); Monocytes Percent Auto 12.4 % (1.7-12.0); Neutrophils Absolute Auto 4.5 10^3/uL (1.4-6.5); Neutrophils Percent Auto 52.8 % (43.0-75.0); Platelet Count 159 10^3/uL (150-450); Red Blood Count 3.55 10^6/uL (4.20-5.40); White Blood Count 8.6 10^3/uL (4.0-11.0)
[2023-06-10 04:57] LABS: Anion Gap 10.7; BUN Creatinine Ratio 10.6; Calcium 9.6 mg/dL (8.5-10.1); Carbon Dioxide 32.4 mmol/L (21.0-32.0); Chloride 105 mmol/L (98-107); Estimated GFR (African America >60 (>=60); Estimated GFR (Non-African Ame >60 (>=60); Glucose 135 mg/dL (74-106); Potassium 4.1 mmol/L (3.5-5.1); Sodium 144 mmol/L (136-145)
[2023-06-10] MEDS: IPRATROPIUM/ALBUTEROL SULFATE 3 ML AMPUL.NEB IH (05:14)
[2023-06-10] MEDS: OXYCODONE HCL/ACETAMINOPHEN 5MG/325MG 1 TAB PO (05:14)
[2023-06-10 07:29] LABS: Glucometer 195 mg/dL (74-106)
[2023-06-10] MEDS: INSULIN ASPART 300 UNIT/3 ML PEN SUBQ ×3 (07:48→22:08)
--- NOTE | 2023-06-10 08:02 | CM.NOTE ---
Rounds made with Dr. Rendon, pt scheduled for OR today. PT will evaluate after OR for any discharge needs.
--- NOTE | 2023-06-10 08:15 | P.PN_ITS ---
Progress Note: Subjective Subjective Interval history: Patient feeling very anxious about her surgery later today. Exam Constitutional Vital Signs, click to edit/add: Last Vital Signs Temp 98.8 F 06/10/23 07:30 Pulse 132 H 06/10/23 07:30 Resp 18 06/10/23 07:35 BP 135/77 06/10/23 07:30 Pulse Ox 94 L 06/10/23 07:30 O2 Del Method Room Air 06/10/23 07:30 O2 Flow Rate 1 06/09/23 07:34 Documenting provider has reviewed patient's vital signs: yes Common normals: apparent distress (Anxious) Chest Common normals: inspection of chest normal Respiratory Common normals: normal respiratory effort and no retractions Cardio Common normals: regular rhythm; irregular rate Rate: tachycardic Extremity Common normals: normal to inspection (Splint on left leg) Progress Note: Objective Labs Labs: Short CBC 06/10/23 Range/Units 04:34 WBC 8.6 (4.0-11.0) 10^3/uL Hgb 11.0 L (12.0-16.0) g/dL Hct 34.1 L (36.0-48.0) % Plt Count 159 (150-450) 10^3/uL BMP 06/10/23 04:34 Sodium 144 Potassium 4.1 Chloride 105 Carbon Dioxide 32.4 H BUN 10.0 Creatinine 0.94 Glucose 135 H Calcium 9.6 Progress Note: A&P Assessment and Plan (1) Fracture of foot: (2) Closed fibular fracture: Qualifiers: Encounter type: initial encounter Fibula location: proximal Fracture morphology: other fracture Laterality: left Qualified Code(s): S82.832A - Other fracture of upper and lower end of left fibula, initial encounter for closed fracture Plan Patient with uncontrolled high blood pressure, presented with increasing pain in foot, found to have multiple fractures. Also proximal fibular fracture. Consultation has been placed to podiatry. Discussed case with podiatry, surgical intervention later today Acute hypoxia and acute hypotension-this is likely secondary to 1 dose of morphine.-This is resolved Sinus tachycardia-does not appear to be dry, feels more anxious. Will try 1 dose of IV Ativan. Uncontrolled hypertension-will continue with home medications but use as needed hydralazine Lumbar radiculopathy-continue with home medications-stable GERD-continue with home medications-stable NIDDM-insulin sliding scale-stable hold oral agents for now, surgery in the a.m.-stable despite no oral hypoglycemics Mild protein calorie malnutrition-diet management as an outpatient Iron deficient anemia-down somewhat today. Monitor as an outpatient and daily Admission status: Initially thought observation status, patient will have surgical intervention today. Medically necessary treatment will span 2 midnights. Inpatient status. ?
[2023-06-10] MEDS: LORAZEPAM 2 MG/ML VIAL 1 MG IV (08:29)
--- NOTE | 2023-06-10 09:37 | ECG_ITS ---
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
--- NOTE | 2023-06-10 09:37 | XR_ITS ---
The [address] [address] Patient Name: KARINA DE OLIVEIRA MRN: [id number] date: 1965 Sex: F Assigned Patient Location: [place] Current Patient Location: Accession/Order Number: [id number] Exam Date: 06/10/2023 10:00 Report Date: 06/10/2023 10:16 At the request of: VIRGINIA PACHECO Procedure: XR chest 1V EXAM: XR chest 1V HISTORY: hypoxia COMPARISON: Chest study dated 06/08/2023 TECHNIQUE: AP view of the chest was obtained with portable technique at 0926 hours. FINDINGS: Heart and mediastinal contours are unremarkable in appearance. No acute infiltrate or consolidations are seen. No obvious pneumothorax. Bony structures appear grossly intact. XR/XR chest 1V IMPRESSION: No acute process seen in the chest. Electronically authenticated by: DANIELA FRANCO Date: 06/10/2023 10:16
[2023-06-10 10:11] LABS: Troponin I High Sensitivity 6.1 pg/mL (4.0-51.3)
[2023-06-10] MEDS: LACTATED RINGER'S SOLUTION 1,000 ML 50 ML IV ×2 (10:24→16:18)
[2023-06-10] MEDS: FAMOTIDINE/PF 20 MG/2 ML VIAL IV (12:29)
--- NOTE | 2023-06-10 12:46 | PC.NURSE ---
06/10/2023 1210- Patient is requesting indwelling watkins catheter placement prior to procedure. Dr. Jefferson aware and new order received. Indwelling watkins catheter placed without difficulty per Reji Isabel RN and Gogo Abrams RN. Return of clear yellow urine noted in watkins bag. Patient tolerated procedure well.
--- NOTE | 2023-06-10 12:47 | P.ORON_ITS ---
Brief Operative Note Date of procedure: 06/10/23 Pre-op diagnosis general: left metatarsals 1,2, 4 & 5 and medial cuneiform fra ctures Post-op diagnosis: same as pre-op Procedure: procedure performed: Fusion of 1st tarsometatarsal joint with close management of metatarsal fractures two, four and five, stress examination under intraoperative fluoroscopy Indications for procedure: See consultation note for details but ensure patient sustained a ground-level fall at her home on 06/07 and was found to have a Lisfranc variant fracture dislocation. She was educated on risks and benefits of surgical versus nonsurgical treatment options the patient wished to proceed with the above procedures Intraoperative findings: Severely comminuted medial cuneiform fracture with instability of the 1st tarsometatarsal joint. 1st metatarsal base fracture and smith instability noted at the 1st tarsometatarsal joint. Bone quality was poor and consistent with osteoporosis. Mildly displaced 2nd metatarsal shaft fracture and nondisplaced 4th and 5th metatarsal base fractures PROCEDURE IN DETAIL: Patient was identified in pre op and consent was reviewed. Correct side and site were identified and marked. Pre-op antibiotics were started. Patient was brought to OR suite and place on table in a supine position. General anesthesia was administered. Tourniquet applied. Operative extremity was prepped and draped in usual sterile fashion. Formal time-out was performed and the foot/ankle were exsanguinated and tourniquet inflated. Incision was placed over the medial aspect of the 1st Tarsometatarsal joint. Combination sharp and blunt dissection gained access to these joints. The joint was prepared with osteotomes and rongeurs and curettes. a 2.0 mm drill bit was used to subchondral drill the subchondral bone plate of the 1st tarsometatarsal joint. Surgical site was irrigated with copious saline. 2 cc of bone allograft was packed into the joint as well as into the medial cuneiform. The joint was manually reduced and pinned temporarily with a K wire. a 4.0 mm cannulated screw was placed over the guidewire and drilled from the plantar 1st metatarsal base across the 1st tarsometatarsal joint and into the intermediate cuneiform. Slight compression was noted at the fusion site then a 3.5 mm six hole plate was temporarily fixated spanning the 1st tarsometatarsal joint. Fluoroscopy confirmed plate position and 3.5 mm locking and one nonlocking screw were placed accordingly. Fluoroscopy confirmed hardware placement and surgical sites were irrigated with copious amounts of sterile saline. the midfoot was then stressed under live fluoroscopy and the lesser tarsometatarsal joints were stable and the metatarsal fractures two, four and five did not further displace and were notably stable. Incisions were closed in layers. A dry sterile dressing consisting of Xeroform on the incisions followed by 4 x 4 gauze, ABDs, and Kerlix were applied. Multiple layers of cast padding were then applied to ensure all bony prominences were well-padded. A plaster posterior splint was then applied which was held in place by Wilver wraps. Capillary refill time to all digits was evaluated and had appropriate response. POSTOPERATIVE PLAN: Transfer to med/surg under hospitalist's care NWB operative foot/ankle Ice and elevation Louann-op antibiotics, multimodal pain medication and DVT prophylaxis ordered Consults: physical therapy & social work program coordinator Estimated LOS 1-2 nights Will follow *NWB x 8 weeks Implants: Medline 3.5 mm plate & 4.0 mm cannulated interfrag screw 2cc of Isto sparc bone allograft Anesthesia: regional and General-LMA Surgeon: Carroll Jefferson Estimated blood loss (mL): 25 Pathology: none sent Condition: stable Disposition: PACU
[2023-06-10] MEDS: CEFAZOLIN SODIUM/DEXTROSE,ISO 2 GM/50 ML PIGGYBACK IV (13:09)
--- NOTE | 2023-06-10 13:15 | PC.NURSE ---
06/10/2023 (4786)- Final timeout completed. OCL removed from left leg per Dr. Lopez order. Patient placed on right side and left leg draped in sterile technique. O2 on at 3l/min via nc. Patient on monitor.. HR-117, R-20, Sao2- 98%. 1253- Block completed. Patient tolearated it well. HR-118, R-20, Sao2-99% and BP 165/101. 1300- Family members to bedside and updated per Dr. Esquivel. Dr. Esquivel reported off to Dr. Del Angel.
[2023-06-10] MEDS: LIDOCAINE HCL 1% 100 MG/10 ML MDV INJ (13:41)
[2023-06-10] MEDS: BUPIVACAINE HCL 0.5% PF 50 MG/10 ML VIAL INJ (13:41)
[2023-06-10 15:15] LABS: Glucometer 147 mg/dL (74-106)
--- NOTE | 2023-06-10 15:37 | XR_ITS ---
The [address] [address] Patient Name: KARINA DE OLIVEIRA MRN: [id number] date: 1965 Sex: F Assigned Patient Location: [place] Current Patient Location: Accession/Order Number: [id number] Exam Date: 06/10/2023 15:38 Report Date: 06/10/2023 16:01 At the request of: SUSSY JONES Procedure: XR foot LT 2V EXAM: XR foot LT 2V HISTORY: POST OP COMPARISON: Left foot study dated 06/08/2023 TECHNIQUE: AP and lateral views of the left foot were obtained. FINDINGS: Overlying cast with plaster noted posteriorly and along the plantar aspect of the foot as seen on the lateral view. Essentially undisplaced transverse fracture of the base of the fifth metatarsal. Mildly displaced fracture of the midportion of the second metatarsal with mild medial angulation of the distal fracture fragment. Interval stabilizing plate with stabilizing screws at the first metatarsal tarsal interval from the proximal portion of the first cuneiform to the midportion of the first metatarsal. Stabilizing screw is seen at this level as well. Postoperative changes appear unremarkable. Calcifications along the dorsal aspect of first metatarsal tarsal joint assumed related to degenerative changes. Limited detail of the toes. [id number] soft tissue swelling. XR/XR foot LT 2V IMPRESSION: Left foot study demonstrates fractures as described. Grossly unremarkable postoperative changes as noted. Follow-up as needed. Electronically authenticated by: DANIELA FRANCO Date: 06/10/2023 16:01
[2023-06-10] MEDS: ACETAMINOPHEN 500 MG TABLET 1000 MG PO ×2 (16:17→22:07)
[2023-06-10 16:49] LABS: Glucometer 150 mg/dL (74-106)
[2023-06-10 20:23] LABS: Glucometer 241 mg/dL (74-106)
[2023-06-10] MEDS: ENOXAPARIN SODIUM 40 MG/0.4 ML SYRINGE SUBQ (22:05)
[2023-06-10] MEDS: BACLOFEN 10 MG TABLET 20 MG PO (22:05)
[2023-06-10] MEDS: PREGABALIN 100 MG CAPSULE PO (22:05)
[2023-06-10] MEDS: DIVALPROEX SODIUM 500 MG TABLET.DR PO (22:06)
[2023-06-10] MEDS: METHOCARBAMOL 500 MG TABLET 750 MG PO (22:06)
[2023-06-10] MEDS: FAMOTIDINE 20 MG TABLET PO (22:06)
[2023-06-11] VITALS (7 sets, daily range): BP systolic 106–120; BP diastolic 57–77; PULSE 89–103; TEMP 36.4–37.1; O2SAT 90–96
[2023-06-11] MEDS: ACETAMINOPHEN 500 MG TABLET 1000 MG PO ×3 (02:41→16:18)
[2023-06-11 04:58] LABS: Basophils Absolute Auto 0.1 10^3/uL (0.0-0.1); Basophils Percent Auto 0.6 % (0.2-2.0); Eosinophils Absolute Auto 0.2 10^3/uL (0.0-0.7); Eosinophils Percent Auto 2.3 % (0.9-7.0); Hematocrit 30.9 % (36.0-48.0); Hemoglobin 9.7 g/dL (12.0-16.0); Immature Granulocytes Abs Auto 0.17 10^3/uL (0.00-0.03); Immature Granulocytes Pct Auto 1.9 % (0.0-0.5); Lymphocytes Absolute Auto 2.6 10^3/uL (1.2-3.8); Mean Corpuscular HGB Conc 31.4 g/dL (29.9-35.2); Mean Corpuscular Hemoglobin 30.4 pg (26.7-34.0); Mean Corpuscular Volume 96.9 fL (81.0-99.0); Mean Platelet Volume 10.6 fL (9.5-13.5); Monocytes Percent Auto 11.6 % (1.7-12.0); Neutrophils Absolute Auto 4.9 10^3/uL (1.4-6.5); Neutrophils Percent Auto 54.6 % (43.0-75.0); Platelet Count 145 10^3/uL (150-450); Red Blood Count 3.19 10^6/uL (4.20-5.40); Red Cell Distribution Width 14.1 % (11.0-15.0)
[2023-06-11 05:05] LABS: Anion Gap 9.7; BUN Creatinine Ratio 12.9; Calcium 8.8 mg/dL (8.5-10.1); Carbon Dioxide 32.5 mmol/L (21.0-32.0); Chloride 102 mmol/L (98-107); Estimated GFR (African America >60 (>=60); Estimated GFR (Non-African Ame >60 (>=60); Glucose 105 mg/dL (74-106); Potassium 4.2 mmol/L (3.5-5.1); Sodium 140 mmol/L (136-145)
--- NOTE | 2023-06-11 08:12 | CM.NOTE ---
Rounds made with Dr. Rendon, pt states I still can't feel my toes. Pt verbalizes comfort. Dr. Jefferson will see pt for further recommendations. PT will evaluate pt today for further discharge needs. Pt states had purchased her a knee scooter.
[2023-06-11] MEDS: L. ACIDOPHILUS/L.BULGARICUS 1 PACKET GRAN.PACK PO (08:37)
[2023-06-11] MEDS: DIVALPROEX SODIUM 500 MG TABLET.DR PO ×2 (08:37→21:23)
[2023-06-11] MEDS: CHOLECALCIFEROL (VITAMIN D3) 25 MCG/1,000 UNITS TABLET PO (08:38)
[2023-06-11] MEDS: METFORMIN HCL 500 MG TABLET 1000 MG PO ×2 (08:38→16:13)
[2023-06-11] MEDS: FAMOTIDINE 20 MG TABLET PO ×2 (08:38→21:24)
[2023-06-11] MEDS: ALLOPURINOL 300 MG TABLET PO (08:38)
[2023-06-11] MEDS: PREGABALIN 50 MG CAPSULE PO (08:38)
[2023-06-11] MEDS: MULTIVITAMIN TABLET 1 TAB PO (08:38)
[2023-06-11] MEDS: RIZATRIPTAN 10 MG 10 EACH PO (08:40)
[2023-06-11] MEDS: NON-FORMULARY 1 EACH (Rosuvastatin 20 mg tablet) 20 EACH PO (08:40)
--- NOTE | 2023-06-11 08:50 | P.PN_ITS ---
<Statement entered by Rivas Rendon MD - 06/12/23 10:25> Pain was seen and evaluated. Patient no concerns this morning. Agree with input and findings as provided by nurse practitioners notes. Progress Note: Subjective Subjective Interval history: 06/11/23 0840 Patient is resting comfortably in bed, currently taking oral medications from the nurse. She complains of a headache this morning, but otherwise denies any acute complaints including no chest pain, shortness of breath, N/V/D. Her pain is adequately controlled on the operative foot. Her sensation is beginning to return but she remains with minimal sensation to the left great toe. Dr Jefferson attended the patient at the same time as my exam. He wants the patient's intraoperative nerve block to have completely worn off prior to discharge to ensure she has adequate pain control. He also wants her to be evaluated by PT and OT for safe ambulation while nonweightbearing. Disposition: Discharge is possible later today versus tomorrow pending resolution of her nerve block and PT OT evals. ADDENDUM 1230: Pt evaluated by PT/OT and unable to stand independently. Therapy recommending SNF rehab. social services technician department working on rehab authorization. Likely D/C in 24-48 hrs pending insurance auth and SNF ac ceptance. Exam Constitutional Vital Signs, click to edit/add: Last Vital Signs Temp 98.1 F 06/11/23 07:54 Pulse 100 H 06/11/23 07:54 Resp 18 06/11/23 07:54 BP 110/73 06/11/23 07:54 Pulse Ox 90 L 06/11/23 07:54 O2 Del Method Room Air 06/11/23 07:54 O2 Flow Rate 2 06/10/23 23:58 Common normals: no apparent distress, oriented x3 and alert General appearance: cooperative Orientation/consciousness: Yes awake HENNM Common normals: normocephalic, head/scalp atraumatic and hearing grossly normal bilaterally Eye Common normals: PERRL, EOMs intact bilaterally, conjunctivae normal and no scleral icterus General eye: normal appearance of both eyes Chest Common normals: inspection of chest normal Chest: symmetrical chest wall rise Respiratory Common normals: normal respiratory effort, no use of accessory muscles and clear to auscultation bilaterally Effort & inspection: able to speak in complete sentences Cardio Common normals: regular rate, regular rhythm, S1 normal heart sound, S2 normal heart sound, no murmurs and peripheral pulses 2+ throughout GI Common normals: Normal to inspection, nondistended, normoactive bowel sounds present, soft to palpation, non-tender and no hepatosplenomegaly Bladder/kidney exam: bladder normal to palpation Extremity Common normals: no calf tenderness General: no clubbing, no cyanosis and no edema Left lower extremity: foot and digits (Surgical Drsg D&I) Neuro Common normals: CN's II-XII intact bilaterally, moves all extremities and no focal motor deficits Sensory exam: extremities (L gr toe w/ paresthesia s/p intraop nerve block) Psych Common normals: mental status grossly normal Progress Note: Objective Labs Labs: Short CBC 06/11/23 Range/Units 04:33 WBC 9.0 (4.0-11.0) 10^3/uL Hgb 9.7 L (12.0-16.0) g/dL Hct 30.9 L (36.0-48.0) % Plt Count 145 L (150-450) 10^3/uL BMP 06/11/23 04:33 Sodium 140 Potassium 4.2 Chloride 102 Carbon Dioxide 32.5 H BUN 12.0 Creatinine 0.93 Glucose 105 Calcium 8.8 Progress Note: A&P Assessment and Plan (1) Fracture of foot: Assessment and Plan: Acute * C/S Podiatry - s/p ORIF per Dr Jefferson on 06/10/23 * NWB x 8 weeks * Defer post op pain management, abx, IVFs to the podiatry service * Possible d/c later today if intra-op nerve block has worn off and pain is adequately controlled, and pt is able to ambulate with a scooter (2) Closed fibular fracture: Assessment and Plan: Acute * see above Qualifiers: Encounter type: initial encounter Fibula location: proximal Fracture morphology: other fracture Laterality: left Qualified Code(s): S82.832A - Other fracture of upper and lower end of left fibula, initial encounter for closed fracture (3) Sinus tachycardia: Assessment and Plan: Acute * Improving * Boderline overnight (98-100) * Likely 2/2 anxiety * Tele monitoring (4) Hypoxia: Assessment and Plan: Acute * Resolved * Suspect episode 2/2 narcotic administration and/or OHS and/or undiagnosed JANETT * OPEP while awake * Monitor (5) HTN (hypertension): Assessment and Plan: Chronic * BP well controlled w/o home HCTZ at this time (6) Diabetes: Assessment and Plan: Chronic * Home Metformin resumed today * Continue to hold Ozempic and Glyburide in the immediate lb-operative period. Plan to resume at d/c * Continue ACHS glucometer checks w/ SSI for glucose correction (7) Lumbar radiculopathy: Assessment and Plan: Chronic * Continue home Lyrica * Home baclofen on hold for now * Pain management per the podiatry service only for foot pain (8) Acid reflux: Assessment and Plan: Chronic * Continue home PPI (9) Mild protein-calorie malnutrition: Assessment and Plan: Chronic * Defer to outpatient management (10) Iron deficiency anemia: Assessment and Plan: Chronic * Continues to fall - Hgb 9.7 today * Likely 2/2 acute intra-op blood loss on chronic iron deficiency * Consider PRBC transfusion for Hgb < 7 or if significantly symptomatic * Currently asymptomatic * CBC daily (11) Hyperlipidemia: Assessment and Plan: Chronic * Continue home statin (12) Migraine headache: Assessment and Plan: Chronic * Continue home PRN triptan * Continue home Depakote - prescribed off label for headache management Urinary Catheter Management Urinary Catheter Management Urethral: Cath placed during this visit: no
[2023-06-11] MEDS: PRASTERONE 50 MG 50 EACH PO (08:54)
[2023-06-11] MEDS: [UNRECOGNIZED DRUG - OTHER] PO (08:54)
[2023-06-11] MEDS: GLUCOSAMINE D3 BOSWELLIA SERR PO (08:54)
--- NOTE | 2023-06-11 08:57 | PM.PN ---
Progress Note: Subjective Subjective Interval history: patient seen at bedside and has no complaints. She has not worked with physical therapy yet. She believes her block is beginning to wear off Exam Narrative Exam Narrative: splint is clean dry and intact. Patient is able to wiggle her toes somewhat and light touch sensation to the distal aspects of her toes is intact but somewhat altered. No Pain on squeeze Constitutional Vital Signs, click to edit/add: Last Vital Signs Temp 98.1 F 06/11/23 07:54 Pulse 100 H 06/11/23 07:54 Resp 18 06/11/23 07:54 BP 110/73 06/11/23 07:54 Pulse Ox 90 L 06/11/23 07:54 O2 Del Method Room Air 06/11/23 07:54 O2 Flow Rate 2 06/10/23 23:58 Progress Note: Objective Labs Labs: Short CBC 06/11/23 Range/Units 04:33 WBC 9.0 (4.0-11.0) 10^3/uL Hgb 9.7 L (12.0-16.0) g/dL Hct 30.9 L (36.0-48.0) % Plt Count 145 L (150-450) 10^3/uL BMP 06/11/23 04:33 Sodium 140 Potassium 4.2 Chloride 102 Carbon Dioxide 32.5 H BUN 12.0 Creatinine 0.93 Glucose 105 Calcium 8.8 Progress Note: A&P Assessment and Plan (1) Fracture of foot: (2) Closed fibular fracture: Qualifiers: Encounter type: initial encounter Fibula location: proximal Fracture morphology: other fracture Laterality: left Qualified Code(s): S82.832A - Other fracture of upper and lower end of left fibula, initial encounter for closed fracture Plan pending physical therapy and pain control once the block wears off patient may be able to be discharged later today Sometime after lunch Prescriptions for Percocet and Lovenox were placed on her chart Patient should follow-up within one week from discharge Please call with updates Urinary Catheter Management Urinary Catheter Management Urethral: Cath placed during this visit: no
--- NOTE | 2023-06-11 09:16 | SWNOTE1 ---
SW to check needs today after pt works with therapy. Pt lives at home with her . Pt will be NWB for 8 weeks, per podiatry note.
--- NOTE | 2023-06-11 10:16 | SWNOTE1 ---
Nursing reached out and pt may be interested in going to rehab. LALITO spoke to pt and daughter in room. Pt has [facility] and would be a precert. Pt is waiting to have therapy eval to see what is recommended. Pt lives at home with who still works. She would have 3 steps to get to any bathroom in her home. Pt and daughter concerned about steps and being home alone. Daughter voiced she lives in a ranch home and pt could potentially move in with her, but she has 3 steps to get in to home and she works and so does her . LALITO advised pt and daughter that the only facility SW is aware of that takes [facility] is [facility]. She voiced she is alright with going to [facility] if needed. SW to wait for therapy eval and re-assess.
--- NOTE | 2023-06-11 10:48 | SWNOTE1 ---
Pt did also mention [facility], SW voiced Sw will double check, but almost certain they do not take [facility]. SW reached out to Emil at [facility] and she is going to double check since it is [facility].
[2023-06-11 11:08] LABS: Glucometer 161 mg/dL (74-106)
[2023-06-11] MEDS: LACTATED RINGER'S SOLUTION 1,000 ML 50 ML IV (11:30)
[2023-06-11] MEDS: INSULIN ASPART 300 UNIT/3 ML PEN SUBQ ×2 (11:33→21:26)
--- NOTE | 2023-06-11 11:50 | SWNOTE1 ---
SW stopped back in room after pt worked with therapy. Pt was tearful and voiced it did not go well. She would like to go to rehab. SW assured it would get better and this is only day one post surgery. Pt would like [facility] as first choice if they take her insurance and [facility] as second. Referral sent to [facility] and the [facility]. Referral included face sheet, ED note, H&P, provider notes, case management report, nursing notes, diagnostic imaging, med list, and PT/OT notes. Referral was sent to both places so they can check benefits. [facility] is in network.
[2023-06-11] MEDS: OXYCODONE HCL 5 MG TABLET 10 MG PO (13:13)
--- NOTE | 2023-06-11 13:20 | SWNOTE1 ---
LALITO heard back from [facility] and they can accept and Emil will start precert. PT/OT was sent over to [facility].
[2023-06-11 16:12] LABS: Glucometer 137 mg/dL (74-106)
[2023-06-11] MEDS: METHOCARBAMOL 500 MG TABLET 750 MG PO (21:22)
[2023-06-11] MEDS: ENOXAPARIN SODIUM 40 MG/0.4 ML SYRINGE SUBQ (21:24)
[2023-06-11] MEDS: BACLOFEN 10 MG TABLET 20 MG PO (21:24)
[2023-06-11] MEDS: PREGABALIN 100 MG CAPSULE PO (21:25)
[2023-06-12] VITALS (10 sets, daily range): BP systolic 110–134; BP diastolic 69–89; PULSE 85–111; TEMP 36.4–37.2; O2SAT 90–95
[2023-06-12 01:18] LABS: Glucometer 147 mg/dL (74-106)
[2023-06-12] MEDS: ACETAMINOPHEN 500 MG TABLET 1000 MG PO ×4 (02:01→21:31)
[2023-06-12] MEDS: OXYCODONE HCL 5 MG TABLET 10 MG PO ×4 (02:06→16:33)
[2023-06-12 04:57] LABS: Basophils Percent Auto 0.5 % (0.2-2.0); Eosinophils Absolute Auto 0.3 10^3/uL (0.0-0.7); Eosinophils Percent Auto 3.6 % (0.9-7.0); Hematocrit 32.2 % (36.0-48.0); Immature Granulocytes Abs Auto 0.17 10^3/uL (0.00-0.03); Lymphocytes Absolute Auto 2.8 10^3/uL (1.2-3.8); Lymphocytes Percent Auto 33.2 % (20.5-60.0); Mean Corpuscular HGB Conc 31.1 g/dL (29.9-35.2); Mean Corpuscular Hemoglobin 30.1 pg (26.7-34.0); Mean Platelet Volume 10.8 fL (9.5-13.5); Monocytes Percent Auto 11.6 % (1.7-12.0); Neutrophils Absolute Auto 4.1 10^3/uL (1.4-6.5); Neutrophils Percent Auto 49.1 % (43.0-75.0); Platelet Count 160 10^3/uL (150-450); Red Blood Count 3.32 10^6/uL (4.20-5.40); Red Cell Distribution Width 13.9 % (11.0-15.0); White Blood Count 8.4 10^3/uL (4.0-11.0)
[2023-06-12 05:07] LABS: Anion Gap 10.6; BUN Creatinine Ratio 15.2; Carbon Dioxide 30.7 mmol/L (21.0-32.0); Chloride 103 mmol/L (98-107); Estimated GFR (African America >60 (>=60); Estimated GFR (Non-African Ame >60 (>=60); Glucose 125 mg/dL (74-106); Potassium 4.3 mmol/L (3.5-5.1); Sodium 140 mmol/L (136-145)
[2023-06-12] MEDS: LACTATED RINGER'S SOLUTION 1,000 ML 50 ML IV (06:43)
[2023-06-12] MEDS: KETOROLAC TROMETHAMINE 30 MG/ML VIAL 15 MG IVP (06:43)
--- NOTE | 2023-06-12 08:15 | CM.NOTE ---
Rounds made with Dr. Rendon. Not doing well with P.T.-states it's hard to not bear weight on left foot. Continue to work with P.T./O.T. Plan for discharge to SNF once approved.
[2023-06-12] MEDS: L. ACIDOPHILUS/L.BULGARICUS 1 PACKET GRAN.PACK PO (08:35)
[2023-06-12] MEDS: METFORMIN HCL 500 MG TABLET 1000 MG PO ×2 (08:35→16:32)
[2023-06-12] MEDS: MULTIVITAMIN TABLET 1 TAB PO (08:35)
[2023-06-12] MEDS: FAMOTIDINE 20 MG TABLET PO ×2 (08:35→21:31)
[2023-06-12] MEDS: DIVALPROEX SODIUM 500 MG TABLET.DR PO ×2 (08:35→21:31)
[2023-06-12] MEDS: PREGABALIN 50 MG CAPSULE PO (08:35)
[2023-06-12] MEDS: ALLOPURINOL 300 MG TABLET PO (08:35)
[2023-06-12] MEDS: CHOLECALCIFEROL (VITAMIN D3) 25 MCG/1,000 UNITS TABLET PO (08:35)
[2023-06-12] MEDS: GLUCOSAMINE D3 BOSWELLIA SERR PO (08:37)
[2023-06-12] MEDS: [UNRECOGNIZED DRUG - OTHER] PO (08:37)
[2023-06-12] MEDS: NON-FORMULARY 1 EACH (Rosuvastatin 20 mg tablet) 20 EACH PO (08:38)
[2023-06-12] MEDS: PRASTERONE 50 MG 50 EACH PO (08:38)
--- NOTE | 2023-06-12 10:37 | P.PN_ITS ---
<Statement entered by Rivas Rendon MD - 06/12/23 19:14> This documentation has been reviewed and approved. Patient was seen and evaluated up in the medical surgical floor, no complaints this morning, not been up and moving yet with from a pain standpoint. Physical therapy did not go well yesterday. She is in need of rehab. Agree with above findings provided by nurse practitioner. Removing Huggins today. See how physical therapy goes today. Patient will benefit from rehabilitation stay. Progress Note: Subjective Subjective Interval history: 06/12/23 0835 The patient is currently resting in bed having just finished eating her breakfast. She reports significant pain that woke her up this morning, but notes that previous doses of oxycodone managed her pain well. Nursing is giving oxycodone at the time of my exam. The patient's nerve block appears to have completely worn off to the left lower extremity as she has no further paresthesias and moves her toes well. As noted yesterday, the patient was unable to stand independently during PT eval. creative services writer is working on placement at a SNF for rehab strengthening at discharge. The patient has been accepted at the [facility] and bed will be available starting tomorrow. Insurance authorization is still pending. Discharge likely in the next 24 to 48 hours pending clinical course and insurance authorization for jail bed. Exam Constitutional Vital Signs, click to edit/add: Last Vital Signs Temp 98.0 F 06/12/23 07:52 Pulse 104 H 06/12/23 07:52 Resp 18 06/12/23 07:52 BP 134/84 06/12/23 07:52 Pulse Ox 94 L 06/12/23 07:52 O2 Del Method Room Air 06/12/23 07:52 O2 Flow Rate 2 06/10/23 23:58 Common normals: no apparent distress, oriented x3 and alert General appearance: cooperative Orientation/consciousness: Yes awake HENMT Common normals: normocephalic, head/scalp atraumatic and hearing grossly normal bilaterally Eye Common normals: PERRL, EOMs intact bilaterally, conjunctivae normal and no scleral icterus General eye: normal appearance of both eyes Chest Common normals: inspection of chest normal Chest: symmetrical chest wall rise Respiratory Common normals: normal respiratory effort, no use of accessory muscles and clear to auscultation bilaterally Effort & inspection: able to speak in complete sentences Cardio Common normals: regular rate, regular rhythm, S1 normal heart sound, S2 normal heart sound, no murmurs and peripheral pulses 2+ throughout GI Common normals: Normal to inspection, nondistended, normoactive bowel sounds present, soft to palpation, non-tender and no hepatosplenomegaly Bladder/kidney exam: bladder normal to palpation Extremity Common normals: normal to inspection and no calf tenderness General: edema (RLE-tr to 1+); no clubbing and no cyanosis Left lower extremity: foot and digits (Surgical compression drsg D&I. [facility]) Neuro Common normals: CN's II-XII intact bilaterally, moves all extremities, no focal motor deficits and no sensory deficits noted Psych Common normals: mental status grossly normal Progress Note: Objective Labs Labs: Short CBC 06/12/23 Range/Units 04:17 WBC 8.4 (4.0-11.0) 10^3/uL Hgb 10.0 L (12.0-16.0) g/dL Hct 32.2 L (36.0-48.0) % Plt Count 160 (150-450) 10^3/uL BMP 06/12/23 04:17 Sodium 140 Potassium 4.3 Chloride 103 Carbon Dioxide 30.7 BUN 14.0 Creatinine 0.92 Glucose 125 H Calcium 9.0 Progress Note: A&P Assessment and Plan (1) Fracture of foot: Assessment and Plan: Acute * C/S Podiatry - s/p ORIF per Dr Jefferson on 06/10/23 * NWB x 8 weeks * Defer post op pain management, abx, DVT prophylaxis, and IVFs to the podiatry service * Pt unable to stand/ambulate independently - PT recommending rehab SNF placement * Possible d/c in 24-48 hrs pending SNF bed availability and insurance authorization (2) Closed fibular fracture: Assessment and Plan: Acute * see above Qualifiers: Encounter type: initial encounter Fibula location: proximal Fracture morphology: other fracture Laterality: left Qualified Code(s): S82.832A - Other fracture of upper and lower end of left fibula, initial encounter for closed fracture (3) Sinus tachycardia: Assessment and Plan: Acute * Improving * Remains mildly tachy (<110) - asymptomatic * Likely 2/2 anxiety/pain * Tele monitoring (4) Hypoxia: Assessment and Plan: Acute * Resolved * Suspect episode 2/2 narcotic administration and/or OHS and/or undiagnosed JANETT * Continue OPEP while awake * Monitor (5) HTN (hypertension): Assessment and Plan: Chronic * BP remains adequately controlled w/o home HCTZ at this time, but is starting to rise today * Resume in AM (6) Diabetes: Assessment and Plan: Chronic * Continue home Metformin * Continue to hold Ozempic in the immediate lb-operative period (risk for euglycemic DKA). Plan to resume at d/c * Pt is no longer taking glyburide * Continue ACHS glucometer checks w/ SSI for glucose correction (7) Lumbar radiculopathy: Assessment and Plan: Chronic * Continue home Lyrica * Home baclofen on hold for now * Pain management per the podiatry service for post op foot pain (8) Acid reflux: Assessment and Plan: Chronic * Continue home PPI (9) Mild protein-calorie malnutrition: Assessment and Plan: Chronic * Defer to outpatient management (10) Iron deficiency anemia: Assessment and Plan: Chronic * Stable today - Hgb 10.0 on AM labs * Likely 2/2 acute intra-op blood loss on chronic iron deficiency * Consider PRBC transfusion for Hgb < 7 or if significantly symptomatic * Remains asymptomatic * CBC daily (11) Hyperlipidemia: Assessment and Plan: Chronic * Continue home statin (12) Migraine headache: Assessment and Plan: Chronic * Continue home PRN triptan * Continue home Depakote - prescribed off label for headache management Urinary Catheter Management Urinary Catheter Management Urethral: Cath placed during this visit: no
--- NOTE | 2023-06-12 10:37 | PM.PN ---
Progress Note: Subjective Subjective Interval history: 06/12/23 0867 The patient is currently resting in bed having just finished eating her breakfast. She reports significant pain that woke her up this morning, but notes that previous doses of oxycodone managed her pain well. Nursing is giving oxycodone at the time of my exam. The patient's nerve block appears to have completely worn off to the left lower extremity as she has no further paresthesias and moves her toes well. As noted yesterday, the patient was unable to stand independently during PT eval. transaction advisory services manager is working on placement at a SNF for rehab strengthening at discharge. The patient has been accepted at the [facility] and bed will be available starting tomorrow. Insurance authorization is still pending. Discharge likely in the next 24 to 48 hours pending clinical course and insurance authorization for senior living bed. Exam Constitutional Vital Signs, click to edit/add: Last Vital Signs Temp 98.0 F 06/12/23 07:52 Pulse 104 H 06/12/23 07:52 Resp 18 06/12/23 07:52 BP 134/84 06/12/23 07:52 Pulse Ox 94 L 06/12/23 07:52 O2 Del Method Room Air 06/12/23 07:52 O2 Flow Rate 2 06/10/23 23:58 Common normals: no apparent distress, oriented x3 and alert General appearance: cooperative Orientation/consciousness: Yes awake HENLA Common normals: normocephalic, head/scalp atraumatic and hearing grossly normal bilaterally Eye Common normals: PERRL, EOMs intact bilaterally, conjunctivae normal and no scleral icterus General eye: normal appearance of both eyes Chest Common normals: inspection of chest normal Chest: symmetrical chest wall rise Respiratory Common normals: normal respiratory effort, no use of accessory muscles and clear to auscultation bilaterally Effort & inspection: able to speak in complete sentences Cardio Common normals: regular rate, regular rhythm, S1 normal heart sound, S2 normal heart sound, no murmurs and peripheral pulses 2+ throughout GI Common normals: Normal to inspection, nondistended, normoactive bowel sounds present, soft to palpation, non-tender and no hepatosplenomegaly Bladder/kidney exam: bladder normal to palpation Extremity Common normals: normal to inspection and no calf tenderness General: edema (RLE-tr to 1+); no clubbing and no cyanosis Left lower extremity: foot and digits (Surgical compression drsg D&I. Good [facility]) Neuro Common normals: CN's II-XII intact bilaterally, moves all extremities, no focal motor deficits and no sensory deficits noted Psych Common normals: mental status grossly normal Progress Note: Objective Labs Labs: Short CBC 06/12/23 Range/Units 04:17 WBC 8.4 (4.0-11.0) 10^3/uL Hgb 10.0 L (12.0-16.0) g/dL Hct 32.2 L (36.0-48.0) % Plt Count 160 (150-450) 10^3/uL BMP 06/12/23 04:17 Sodium 140 Potassium 4.3 Chloride 103 Carbon Dioxide 30.7 BUN 14.0 Creatinine 0.92 Glucose 125 H Calcium 9.0 Progress Note: A&P Assessment and Plan (1) Fracture of foot: Assessment and Plan: Acute C/S Podiatry - s/p ORIF per Dr Jefferson on 06/10/23 NWB x 8 weeks Defer post op pain management, abx, DVT prophylaxis, and IVFs to the podiatry service Pt unable to stand/ambulate independently - PT recommending rehab SNF placement Possible d/c in 24-48 hrs pending SNF bed availability and insurance authorization (2) Closed fibular fracture: Assessment and Plan: Acute see above Qualifiers: Encounter type: initial encounter Fibula location: proximal Fracture morphology: other fracture Laterality: left Qualified Code(s): S82.832A - Other fracture of upper and lower end of left fibula, initial encounter for closed fracture (3) Sinus tachycardia: Assessment and Plan: Acute Improving Remains mildly tachy (<110) - asymptomatic Likely 2/2 anxiety/pain Tele monitoring (4) Hypoxia: Assessment and Plan: Acute Resolved Suspect episode 2/2 narcotic administration and/or OHS and/or undiagnosed JANETT Continue OPEP while awake Monitor (5) HTN (hypertension): Assessment and Plan: Chronic BP remains adequately controlled w/o home HCTZ at this time, but is starting to rise today Resume in AM (6) Diabetes: Assessment and Plan: Chronic Continue home Metformin Continue to hold Ozempic in the immediate lb-operative period (risk for euglycemic DKA). Plan to resume at d/c Pt is no longer taking glyburide Continue ACHS glucometer checks w/ SSI for glucose correction (7) Lumbar radiculopathy: Assessment and Plan: Chronic Continue home Lyrica Home baclofen on hold for now Pain management per the podiatry service for post op foot pain (8) Acid reflux: Assessment and Plan: Chronic Continue home PPI (9) Mild protein-calorie malnutrition: Assessment and Plan: Chronic Defer to outpatient management (10) Iron deficiency anemia: Assessment and Plan: Chronic Stable today - Hgb 10.0 on AM labs Likely 2/2 acute intra-op blood loss on chronic iron deficiency Consider PRBC transfusion for Hgb < 7 or if significantly symptomatic Remains asymptomatic CBC daily (11) Hyperlipidemia: Assessment and Plan: Chronic Continue home statin (12) Migraine headache: Assessment and Plan: Chronic Continue home PRN triptan Continue home Depakote - prescribed off label for headache management Urinary Catheter Management Urinary Catheter Management Urethral: Cath placed during this visit: no
[2023-06-12 11:04] LABS: Glucometer 121 mg/dL (74-106)
--- NOTE | 2023-06-12 11:42 | PT.DAILY ---
Physical Therapy Daily Note PT Daily Note/Assess Start: 06/12/23 11:38 Freq: Status: Active Protocol: Document 06/12/23 11:38 ANDERS (Rec: 06/12/23 11:42 [email or web address] [id number]) Physical Therapy Daily Note/Assessment Time In/Time Out Time In 10:45 Time Out 11:00 Pain In Pain N/A Pain Out Pain N/A Subjective Subjective Pt supine upon arrival. Agrees to PT. Moderate pain this morning at rest. Able to wiggle toes. Willing to get into BS chair. Therapeutic Exercise Time Therapeutic Exercise Minutes (minutes) 3 Therapeutic Exercise Units 0 Therapeutic Exercise Treatment Therapeutic Exercise Treatment Seated AP (R), LAQ, marches, and abd step outs 10x ea in BS chair. Therapeutic Activity Time Therapeutic Activity Minutes (minutes) 8 Therapeutic Activity Units 1 Therapeutic Activity Treatment Bed Mobility Ability Standby Assistance Chair Transfer Ability Moderate Assist,2 Person Assist Therapeutic Activity Comments Pt performs bed mobs supine> sit SBA with increased time to advance LEs off bed and to sit upper body up - but no assistance needed. Sits EOB unsupported with min dizziness initially. Sit>stand Julia+2 and 10x hops taken with RW and ModA+2 - needs assistance to maintain NWB R LE. Unable to slowly descend into chair, instead flops into chair. Edu on proper descend for future reference. Pt sits in BS chair to complete LE strengthening ex. Remains in BS chair upon completion with call light in reach and needs met. Total Physical Therapy Time Total Therapy Minutes 11 Total Physical Therapy Units 1 Summary Daily Note Summary Cont to have difficulty maintaining full NWB R LE - requiring ModA+2 for gait with RW.
--- NOTE | 2023-06-12 13:13 | SWNOTE1 ---
Updates sent to [facility] for precert. This included PT/OT from today, physician notes, labs, vitals, and nursing notes.
[2023-06-12 16:12] LABS: Glucometer 103 mg/dL (74-106)
--- NOTE | 2023-06-12 17:12 | PM.PN ---
Progress Note: Subjective Subjective Interval history: Patient seen at bedside resting comfortably, POD #2 s/p left first TMT arthrodesis with closed reduction second fourth and fifth metatarsal fractures stress exam under fluoroscopy DOS 06/10/2023. Patient states she did have increased pain last night as her block continue to wear off, however she states she is controlled at this point with oral medications. She denies any constitutional symptoms and denies any other lower extremity complaints at time of visit. Exam Narrative Exam Narrative: Vascular: CFT intact to digits. Skin temperature warm and symmetric proximal distal to dressing. No erythema edema or ecchymosis proximal to dressing. Neuro: Light touch sensation to digits intact. Derm: No open lesions proximal or distal to dressing. MSK: Active range of motion digits present, compartments soft compressible, no pain with calf or thigh compression. Constitutional Vital Signs, click to edit/add: Last Vital Signs Temp 97.8 F 06/12/23 16:35 Pulse 88 06/12/23 16:35 Resp 18 06/12/23 16:35 BP 127/73 06/12/23 16:35 Pulse Ox 90 L 06/12/23 16:35 O2 Del Method Room Air 06/12/23 16:35 O2 Flow Rate 2 06/10/23 23:58 Progress Note: Objective Labs Labs: Short CBC 06/12/23 Range/Units 04:17 WBC 8.4 (4.0-11.0) 10^3/uL Hgb 10.0 L (12.0-16.0) g/dL Hct 32.2 L (36.0-48.0) % Plt Count 160 (150-450) 10^3/uL BMP 06/12/23 04:17 Sodium 140 Potassium 4.3 Chloride 103 Carbon Dioxide 30.7 BUN 14.0 Creatinine 0.92 Glucose 125 H Calcium 9.0 Progress Note: A&P Assessment and Plan (1) Fracture of foot: (2) Closed fibular fracture: Qualifiers: Encounter type: initial encounter Fibula location: proximal Fracture morphology: other fracture Laterality: left Qualified Code(s): S82.832A - Other fracture of upper and lower end of left fibula, initial encounter for closed fracture (3) Sinus tachycardia: (4) Hypoxia: (5) HTN (hypertension): (6) Diabetes: (7) Lumbar radiculopathy: (8) Acid reflux: (9) Mild protein-calorie malnutrition: (10) Iron deficiency anemia: (11) Hyperlipidemia: (12) Migraine headache: Plan Patient examined and evaluated. All findings discussed with patient all questions answered to patient's satisfaction. Pertinent labs and imaging reviewed. Patient's pain appears well-controlled with oral medications. Left lower extremity splint left CDI. Plan to leave intact until follow-up. Maintain nonweightbearing left lower extremity. PT/OT/SW on board, pending placement to SNF at the [facility]. Follow-up 1 week s/p discharge. Stable to DC from podiatry's perspective, rest per primary, will continue to follow. Please call with questions or concerns. Urinary Catheter Management Urinary Catheter Management Urethral: Cath placed during this visit: yes, but has since been removed by the nurse Removal date: 06/12/23 Removal time: 11:00
[2023-06-12 19:59] LABS: Glucometer 138 mg/dL (74-106)
[2023-06-12] MEDS: BACLOFEN 10 MG TABLET 20 MG PO (21:31)
[2023-06-12] MEDS: PREGABALIN 100 MG CAPSULE PO (21:31)
[2023-06-12] MEDS: ENOXAPARIN SODIUM 40 MG/0.4 ML SYRINGE SUBQ (21:32)
[2023-06-12] MEDS: METHOCARBAMOL 500 MG TABLET 750 MG PO (21:32)
[2023-06-13] MEDS: OXYCODONE HCL 5 MG TABLET 10 MG PO (02:38)
[2023-06-13] MEDS: ACETAMINOPHEN 500 MG TABLET 1000 MG PO ×2 (02:38→08:41)
[2023-06-13 04:00] VITALS: BP 111/77; PULSE 89; TEMP 36.4; O2SAT 95
[2023-06-13 04:54] VITALS: O2SAT 93
[2023-06-13 05:26] LABS: Basophils Absolute Auto 0.1 10^3/uL (0.0-0.1); Basophils Percent Auto 0.7 % (0.2-2.0); Eosinophils Absolute Auto 0.3 10^3/uL (0.0-0.7); Eosinophils Percent Auto 4.7 % (0.9-7.0); Hematocrit 30.4 % (36.0-48.0); Hemoglobin 9.7 g/dL (12.0-16.0); Immature Granulocytes Abs Auto 0.19 10^3/uL (0.00-0.03); Immature Granulocytes Pct Auto 2.6 % (0.0-0.5); Lymphocytes Absolute Auto 2.9 10^3/uL (1.2-3.8); Lymphocytes Percent Auto 39.4 % (20.5-60.0); Mean Corpuscular HGB Conc 31.9 g/dL (29.9-35.2); Mean Corpuscular Hemoglobin 30.7 pg (26.7-34.0); Mean Corpuscular Volume 96.2 fL (81.0-99.0); Mean Platelet Volume 10.2 fL (9.5-13.5); Monocytes Absolute Auto 0.7 10^3/uL (0.3-0.8); Monocytes Percent Auto 10.2 % (1.7-12.0); Neutrophils Absolute Auto 3.1 10^3/uL (1.4-6.5); Neutrophils Percent Auto 42.4 % (43.0-75.0); Platelet Count 166 10^3/uL (150-450); Red Blood Count 3.16 10^6/uL (4.20-5.40); Red Cell Distribution Width 13.7 % (11.0-15.0); White Blood Count 7.3 10^3/uL (4.0-11.0)
[2023-06-13 05:42] LABS: Anion Gap 9.8; Calcium 8.8 mg/dL (8.5-10.1); Carbon Dioxide 31.4 mmol/L (21.0-32.0); Chloride 101 mmol/L (98-107); Estimated GFR (African America >60 (>=60); Estimated GFR (Non-African Ame 54 (>=60); Glucose 114 mg/dL (74-106); Potassium 4.2 mmol/L (3.5-5.1); Sodium 138 mmol/L (136-145)
[2023-06-13 08:00] VITALS: BP 120/68; PULSE 107; TEMP 36.9; O2SAT 91
[2023-06-13] MEDS: L. ACIDOPHILUS/L.BULGARICUS 1 PACKET GRAN.PACK PO (08:39)
[2023-06-13] MEDS: OXYCODONE HCL 15 MG TABLET PO ×2 (08:40→12:41)
[2023-06-13] MEDS: DIVALPROEX SODIUM 500 MG TABLET.DR PO (08:40)
[2023-06-13] MEDS: MULTIVITAMIN TABLET 1 TAB PO (08:41)
[2023-06-13] MEDS: ALLOPURINOL 300 MG TABLET PO (08:41)
[2023-06-13] MEDS: CHOLECALCIFEROL (VITAMIN D3) 25 MCG/1,000 UNITS TABLET PO (08:41)
[2023-06-13] MEDS: HYDROCHLOROTHIAZIDE 25 MG TABLET PO (08:42)
[2023-06-13] MEDS: METFORMIN HCL 500 MG TABLET 1000 MG PO (08:42)
[2023-06-13] MEDS: FAMOTIDINE 20 MG TABLET PO (08:42)
[2023-06-13] MEDS: PREGABALIN 50 MG CAPSULE PO (08:42)
--- NOTE | 2023-06-13 08:43 | CM.NOTE ---
Rounds made with Dr. Rendon, discussed with pt discharge to [facility] for skilled therapy today.
[2023-06-13] MEDS: [UNRECOGNIZED DRUG - OTHER] PO (08:45)
[2023-06-13] MEDS: PRASTERONE 50 MG 50 EACH PO (08:45)
[2023-06-13] MEDS: GLUCOSAMINE D3 BOSWELLIA SERR PO (08:45)
--- NOTE | 2023-06-13 08:53 | P.DS_ITS ---
<Statement entered by Rivas Rendon MD - 06/14/23 10:23> This documentation has been reviewed and approved. Patient was seen and evaluated in her room on the day of discharge. Agree with input and findings provided by nurse practitioner and her discharge summary. No further additional diagnoses DS: Providers Provider Date of admission: 06/08/23 18:20 Primary care physician: Shaikh Maricel MD Consults: 06/08/23 17:06 Consult to Pharmacy Routine Consulting Provider: Reason for consultation: Please [place] me when Med Rec is Updated Has provider been notified: No Occupational Therapy Eval and Treat Routine Reason for consultation: Only if needed for Rehab Has provider been notified: No Physical Therapy Eval and Treat Routine Reason for consultation: Eval and Treat Has provider been notified: No 06/09/23 Consult to Podiatry Routine Consulting Provider: Carroll Jefferson Reason for consultation: Fracture Has provider been notified: Yes 06/10/23 14:34 Physical Therapy Eval and Treat Routine Reason for consultation: gait training - NWB LEFT foot Has provider been notified: No Discharging clinician: Winifred Hickey DS: Diagnosis Discharge Diagnosis (1) Fracture of foot: (2) Closed fibular fracture: Qualifiers: Encounter type: initial encounter Fibula location: proximal Fracture morphology: other fracture Laterality: left Qualified Code(s): S82.832A - Other fracture of upper and lower end of left fibula, initial encounter for closed fracture (3) Sinus tachycardia: (4) Hypoxia: (5) HTN (hypertension): (6) Diabetes: (7) Lumbar radiculopathy: (8) Acid reflux: (9) Mild protein-calorie malnutrition: (10) Iron deficiency anemia: (11) Hyperlipidemia: (12) Migraine headache: DS: Summary Hospital Course Hospital Course: The patient was admitted with multiple left foot fractures of the second fourth and fifth metatarsals and a distal fibular fracture. She was seen in consult by Dr Jefferson and was taken to the OR on 06/10/2023 for operative repair of her foot fractures. Her postoperative course was unremarkable. The patient is to remain nonweightbearing for 8 weeks. She was seen in consult by PT and was unable to stand or ambulate independently due to chronic weakness and n onweightbearing status of her left lower extremity. She is being discharged to a local SNF for further rehab strengthening in stable condition. DVT prophylaxis and pain management medications were prescribed by the podiatry service. The patient is to follow-up with Dr Jefferson within 1 week. Time Spent with Patient Time attestation: Total time spent providing and/or coordinating discharge services: Time spent: greater than 30 minutes Specific discharge activities: Physical exam, discussion of discharge plan, questions answered. Exam Constitutional Vital Signs, click to edit/add: Last Vital Signs Temp 97.6 F 06/13/23 04:00 Pulse 89 06/13/23 04:00 Resp 16 06/13/23 04:00 BP 111/77 06/13/23 04:00 Pulse Ox 93 L 06/13/23 04:54 O2 Del Method Room Air 06/13/23 04:54 O2 Flow Rate 2 06/10/23 23:58 Common normals: no apparent distress, oriented x3 and alert General appearance: cooperative Orientation/consciousness: Yes awake HENMT Common normals: normocephalic and head/scalp atraumatic Eye Common normals: PERRL, EOMs intact bilaterally, conjunctivae normal and no scleral icterus Neck & C-Spine Common normals: no JVD Respiratory Common normals: normal respiratory effort, no use of accessory muscles and clear to auscultation bilaterally Effort & inspection: able to speak in complete sentences and symmetric chest movement Cardio Common normals: no JVD, regular rate, regular rhythm, S1 normal heart sound, S2 normal heart sound, no murmurs and peripheral pulses 2+ throughout GI Common normals: Normal to inspection, nondistended, normoactive bowel sounds present, soft to palpation and non-tender Bladder/kidney exam: bladder normal to palpation Extremity Common normals: normal to inspection, full ROM, normal capillary refill and no pedal edema General: no clubbing and no cyanosis Left lower extremity: foot and digits (Surgical drsg D&I. [facility]) Neuro Common normals: moves all extremities, no focal motor deficits and no sensory deficits noted Speech: speech normal Psych Common normals: mental status grossly normal and activity/motor behavior normal DS: Data Data Completed and Pending Labs on day of discharge: Labs from last 24 hours 06/13/23 06/12/23 06/12/23 05:02 19:58 16:11 WBC 7.3 RBC 3.16 L Hgb 9.7 L Hct 30.4 L MCV 96.2 MCH 30.7 MCHC 31.9 RDW 13.7 Plt Count 166 MPV 10.2 Neut % (Auto) 42.4 L Lymph % (Auto) 39.4 [place] % (Auto) 10.2 Eos % (Auto) 4.7 Baso % (Auto) 0.7 Neut # (Auto) 3.1 Lymph # (Auto) 2.9 [place] # (Auto) 0.7 Eos # (Auto) 0.3 Baso # (Auto) 0.1 Abs Immat Gran (auto) 0.19 H Imm/Tot Granulo (auto) 2.6 H Sodium 138 Potassium 4.2 Chloride 101 Carbon Dioxide 31.4 Anion Gap 9.8 BUN 21.0 H Creatinine 1.05 H Est GFR ( Amer) >60 Est GFR (Non-Af Amer) 54 L BUN/Creatinine Ratio 20.0 Glucose 114 H Calcium 8.8 POC Glucose 138 H 103 06/12/23 11:03 WBC RBC Hgb Hct MCV MCH MCHC RDW Plt Count MPV Neut % (Auto) Lymph % (Auto) [place] % (Auto) Eos % (Auto) Baso % (Auto) Neut # (Auto) Lymph # (Auto) [place] # (Auto) Eos # (Auto) Baso # (Auto) Abs Immat Gran (auto) Imm/Tot Granulo (auto) Sodium Potassium Chloride Carbon Dioxide Anion Gap BUN Creatinine Est GFR ( Amer) Est GFR (Non-Af Amer) BUN/Creatinine Ratio Glucose Calcium POC Glucose 121 H Discharge Plan Discharge Disposition: Xfer SNF Condition: Good Discharge Medications: Continued alendronate 70 mg tablet 70 mg PO QWEEK allopurinol 300 mg tablet 300 mg PO DAILY aspirin [Adult Aspirin Regimen] 81 mg tablet,delayed release (DR/EC) 81 mg PO DAILY baclofen 10 mg tablet 10 mg PO TID PRN (Reason: muscle spasm) DHEA 50 mg capsule 50 mg PO DAILY divalproex [Depakote] 500 mg tablet,delayed release (DR/EC) 500 mg PO BID pregabalin [Lyrica] 50 mg capsule 50 mg PO .q am multivitamin Tablet 1 tab PO DAILY [id number] [Osteo Bi-Flex (5-Loxin)] 1,500-400-100 mg-unit-mg tablet 1 tab PO DAILY Rx Instructions: give after food/meal Probiotic Pearls Complete 1 billion cell capsule,delayed release(DR/EC) 1 cap PO DAILY cholecalciferol (vitamin D3) 25 mcg (1,000 unit) capsule 1,000 unit PO DAILY diclofenac sodium 75 mg tablet,delayed release (DR/EC) 75 mg PO BID glyburide 1.25 mg tablet 1.25 mg PO DAILY hydrochlorothiazide 25 mg tablet 25 mg PO DAILY oxycodone-acetaminophen 5-325 mg tablet 1 tab PO DAILY methocarbamol 750 mg tablet 750 mg PO .QHS Qty: 30 2RF famotidine 20 mg tablet 20 mg PO BID metformin 1,000 mg tablet 1,000 mg PO BID rizatriptan 10 mg tablet 10 mg PO Q2H PRN (Reason: migraine headache) rosuvastatin 20 mg tablet 20 mg PO DAILY Ozempic 0.25 mg or 0.5 mg (2 mg/3 mL) pen injector 0.25 mg SUBCUT .once a week pregabalin [Lyrica] 100 mg capsule 100 mg PO .q hs pregabalin 75 mg capsule 75 mg PO TID PRN (Reason: NEUROPATHY) Discontinued oxycodone-acetaminophen [Percocet] 5-325 mg tablet 1 tab PO DAILY PRN (Reason: pain) Qty: 30 0RF Print Language: Ukrainian Activity Restrictions/Additional Instructions: - TRISHA MANN x 8 weeks - PT/OT eval and treat Infrastructure Director/Vice President Of Marketing Instructions: Discharge to [facility] for rehab Forms: Portal Instructions Follow Up Appointments: Ron[facility] in 1 wk
--- NOTE | 2023-06-13 09:40 | PT.DAILY ---
Physical Therapy Daily Note PT Daily Note/Assess Start: 06/12/23 11:38 Freq: Status: Active Protocol: Document 06/13/23 09:30 ANDERS (Rec: 06/13/23 09:40 ANDERS [id number]) Physical Therapy Daily Note/Assessment Time In/Time Out Time In 09:03 Time Out 09:28 Pain In Pain N/A Pain Out Pain N/A Subjective Subjective Pt sitting on BS commode upon arrival. Agrees to allow [employer] DEFENCE OFFICER to assist with getting dressed for dc and transfer to chair. Therapeutic Exercise Time Therapeutic Exercise Minutes (minutes) 12 Therapeutic Exercise Units 1 Therapeutic Exercise Treatment Therapeutic Exercise Treatment Seated HS curls with RTB, resisted march with RTB (R Only), resisted AP RTB (R only ), abd step outs bilat, LAQ 10x ea. UE strengthening ex: bicep curls, scap retract, shoulder ext, tricep push downs, diagonals with RTB 10x ea. Therapeutic Activity Time Therapeutic Activity Minutes (minutes) 11 Therapeutic Activity Units 1 Therapeutic Activity Treatment Chair Transfer Ability Maximum Assist,1 Person Assist Therapeutic Activity Comments Pt sits on commode while she doffs gown, puts deodorant on, donns bra, and t shirt with set up only. Needs assistance donning underwear and shorts. Sit>stand from commode MaxA with 2 attempts needed to reach standing. Able to maintain NWB L LE with standing using RW. Shorts are pulled up for her. Seated rest . Sit>stand MaxA and stand pivot to BS chair with RW with ModA - able to maintain NWB L LE with pivot transfer. Sits in BS chair to complete bilat LE and UE strengthening ex. Feet elevated with ice pack under L knee and propped on 2 pillows. Call light is within reach and pt has company present at this time. Total Physical Therapy Time Total Therapy Minutes 23 Total Physical Therapy Units 2 Summary Daily Note Summary Able to stand pivot while maintaining NWB with ModA+1 one today - improved from yesterday.
[2023-06-13 10:05] VITALS: O2SAT 96
--- NOTE | 2023-06-13 10:09 | SWNOTE1 ---
Pt is approved to go to [facility]. SW has to wait to set up transport due to the room pt is going in to at [facility] needs cleaned. Discharge will be later today.
--- NOTE | 2023-06-13 10:35 | SWNOTE1 ---
LALITO faxed over pa med rec. LALITO completed HENS. [facility] called and set up trips for 1:00-1:30. SW notified nursing, pt, and [facility] of time. Pt is going to [facility] skilled for rehab.
[2023-06-13 11:11] LABS: Glucometer 141 mg/dL (74-106)
[2023-06-13 12:00] VITALS: BP 124/77; PULSE 95; TEMP 36.8; O2SAT 92
== END 2023-06-13 13:28 | DRG 504 ==
LOC: ER 18:03 → MS 18:30
PROVIDERS: Physician Assistant; Podiatrist Foot & Ankle Surgery; Admitting Provider Family Medicine; Emergency Provider Emergency Medicine; PCP Internal Medicine; Visit Provider Nurse Practitioner
PROC: 0SGL0JZ Fusion of Left Tarsometatarsal Joint with Synthetic Substitute, Open Approach (ICD-10-PCS; principal; 2023-06-10 12:00)
DX: S92.312A Displaced fracture of first metatarsal bone, left foot, initial encounter for closed fracture (principal); E44.1 Mild protein-calorie malnutrition; Z68.41 Body mass index [BMI] 40.0-44.9, adult; S82.832A Other fracture of upper and lower end of left fibula, initial encounter for closed fracture; S92.242A Displaced fracture of medial cuneiform of left foot, initial encounter for closed fracture; S92.322A Displaced fracture of second metatarsal bone, left foot, initial encounter for closed fracture; S92.335A Nondisplaced fracture of third metatarsal bone, left foot, initial encounter for closed fracture; S92.345A Nondisplaced fracture of fourth metatarsal bone, left foot, initial encounter for closed fracture; S92.355A Nondisplaced fracture of fifth metatarsal bone, left foot, initial encounter for closed fracture; S93.305A Unspecified dislocation of left foot, initial encounter; E78.5 Hyperlipidemia, unspecified; G43.909 Migraine, unspecified, not intractable, without status migrainosus; K21.9 Gastro-esophageal reflux disease without esophagitis; E11.9 Type 2 diabetes mellitus without complications; E66.9 Obesity, unspecified; M19.90 Unspecified osteoarthritis, unspecified site; F17.210 Nicotine dependence, cigarettes, uncomplicated; R09.02 Hypoxemia; I95.9 Hypotension, unspecified; D50.9 Iron deficiency anemia, unspecified; W19.XXXA Unspecified fall, initial encounter; M81.0 Age-related osteoporosis without current pathological fracture; M54.16 Radiculopathy, lumbar region; R00.0 Tachycardia, unspecified; Z79.899 Other long term (current) drug therapy; Z90.710 Acquired absence of both cervix and uterus; Z98.890 Other specified postprocedural states; Z79.82 Long term (current) use of aspirin; Z79.84 Long term (current) use of oral hypoglycemic drugs
CPT/HCPCS: 29505; 36415; 51702; 64445; 71045; 71046; 73552; 73564; 73590; 73620; 73630; 73700; 76000; 80048; 80053; 81001; 82948; 83880; 84484; 85025; 85610; 85730; 93005; 94640; 94667; 94668; 94761; 96365; 96366; 96372; 96375; 96376; 97110; 97162; 97165; 97530; 97535; 99285; C1713; J1094; J1170

== ENCOUNTER 2023-07-03 10:53 | Outpatient (OUT) | payer OTHER, MEDICARE, SELFPAY ==
--- NOTE | 2023-07-03 | XR_ITS ---
The [address] [address] Patient Name: KARINA DE OLIVEIRA MRN: [id number] date: 1965 Sex: F Assigned Patient Location: Current Patient Location: Accession/Order Number: [id number] Exam Date: 07/03/2023 10:54 Report Date: 07/03/2023 14:04 At the request of: SUSSY JONES Procedure: XR foot LT min 3V PROCEDURE: XR foot LT min 3V COMPARISON: 06/08/2023, 06/10/2023 HISTORY: LEFT FOOT PAIN FINDINGS: BONES:Stable subacute fractures along the base of the metatarsals and involving the diaphysis of the second metatarsal. Suspected lateral subluxation of the metatarsals in relation to the tarsal bones could represent a Lisfranc dislocation. Interval fusion of the first tarsometatarsal joint with a plate and screws. No mechanical failure. SOFT TISSUES:Moderate soft tissue swelling EFFUSION:None visible. OTHER: Negative. XR/XR foot LT min 3V IMPRESSION: Subacute healing Lisfranc fracture dislocation Electronically authenticated by: RYAN GOLDMAN Date: 07/03/2023 14:04
--- OUTSIDE RECORDS SUMMARY | 2023-07-03 10:58 | XMS_ITS | CCD ---
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 Name Role Phone House DO, Sr Jonathan Klein Primary Care Provider [phone] BARCLAYNIKKIE Referring Unavailabl e HOUSE, SR JONATHAN Klein [...] DR BASURTO Primary Care Unavailable HALKER .JOSE Consulting Unavailable LAKSHMIPATHY ., NARENDRANATH Admitting Nellie [...] Unavailable GAETANO, DR PATTIE Nieves Consulting Unavailable SUSSY JONES Consulting Unavailable HOUSE, DR BASURTO Attending Unavailable FULTON, DR BASURTO Primary Care Unavailable HOUSE, DR BASURTO Admitting Unavailable HOUSE, DR JONATHAN Trimble Unavailable FULTON, DR BASURTO Primary Care Unavailable GAETANO, DR PATTIE Nieves Consulting Unavailable LAKSHMIPATHY ., NARENDSABAS Admitting Nellie vailable LAKSHMIPATHY ., DEMETRIUSATH Attending Nellie vailable LAKSHMIPATHY ., BILLY Consulting Nellie vailable HOUSE, DR BASURTO Admitting Unavailable FULTON, DR BASURTO Attending Unavailable FULTON, DR BASURTO Primary Care Unavailable SALEM, DR RYAN Guzman Consulting Unavailable HOUSE, DR [...] Consulting Unavailable PIERCE ., CRYS Trimble Unavailable FULTON, DR BASURTO Primary Care Unavailable HOLM ., [...] 12, 2017 1:00am take 1 tablet by alnoso th at mealtime, then take 1 tablet [...] capsule (10 sources) Start: 03-21-19 End: 06-19-19 24 take 1 capsule by mouth in the [...] 12, 2017 1:00am January 15, 2017 2:23pm Yljjrnfcjxkw-Cy-Unp n-Minerals (Multiple Vitamin, Womens) Tablet (1 source) Start: 01-12-2017 End: 01-15-2017 Fqwfsscaeauf-Nu-Mu on-Minerals (Multiple Vitamin, Womens) Tablet Discontinued PO [...] PATTIE SALTER Date: 2022-06-07 11:15 Normal [facility] CBC AUTO DIFFon 04-12-2022 BASO # 0.1 103/ul Normal 0.0-0.1 [facility] Comment on above: Performed By: #### C BC ####[facility] [address] [place] [address]Dr. Ricky Valenzuela Basophils/100 WBC (Bld) 0.5 % Normal 0.2-2.0 [facility] Comment on above: Performed By: #### C BC ####[facility] [address] [place] [address]Dr. Ricky Valenzuela EO # 0.3 103/ul Normal 0.0-0.7 [facility] Comment on above: Performed By: #### C BC ####[facility] [address] [place] [address]Dr. Ricky Valenzuela Eosinophils/100 WBC (Bld) 3.0 % Normal 0.9-7.0 [facility] Comment on above: Performed By: #### C BC ####[facility] [address] [place], [place] [address]Dr. Ricky Valenzuela Erythrocyte distribution width (RBC) [Ratio] 14.8 % Normal 11.0-15.0 [facility] Comment on above: Performed By: #### C BC ####[facility] [address] [place], [place] [address]Dr. Ricky Valenzuela Hematocrit (Bld) [Volume fraction] 40.6 % Normal 36.0-48.0 [facility] Comment on above: Performed By: #### C BC ####[facility] [address] [place], [place] [address]Dr. Ricky Valenzuela Hemoglobin (Bld) [Mass/Vol] 13.5 g/dL Normal 12.0-16.0 [facility] Comment on above: Performed By: #### C BC ####[facility] [address] [place] [id number]. Ricky Valenzuela IG # 0.16 10e3/ul Critically high 0.00-0.03 [facility] Comment on above: Performed By: #### C BC ####[facility] [address] [place] [address]Dr. Ricky Nicolas IG % 1.4 % Critically high 0.0-0.5 [facility] Comment on above: Performed By: #### C BC ####[facility] [address] [place], [place] [address]Dr. Ricky Nicolas LYMPH # 3.4 103/ul Normal 1.2-3.8 [facility] Comment on above: Performed By: #### C BC ####[facility] [address] [place], [place] [address]Dr. Lesleysharron Valenzuela Lymphocytes/100 WBC (Bld) 30.4 % Normal 20.5-60.0 [facility] Comment on above: Performed By: #### C BC ####[facility] [address] [place], [place] [address]Dr. Lesleysharron Valenzuela MANUAL DIFF REQ NO Normal [facility] Comment on above: Performed By: #### C BC ####[facility] [address] [place], [place] [address]DrPasquale Ricky Valenzuela MCH (RBC) [Entitic mass] 31.8 pg Normal 26.7-34.0 [facility] Comment on above: Performed By: #### C BC ####[facility] [address] [place], [place] [address]DrPasquale Ricky Valenzuela MCHC (RBC) [Mass/Vol] 33.3 g/dL Normal 29.9-35.2 [facility] Comment on above: Performed By: #### C BC ####[facility] [address] [place], [place] [address]DrPasquale Ricky Nicolas MCV (RBC) [Entitic vol] 95.5 fL Normal 81.0-99.0 [facility] Comment on above: Performed By: #### C BC ####[facility] [address] [place], [place] [address]Dr. Ricky Valenzuela MONO # 0.9 103/ul Critically high 0.3-0.8 [facility] Comment on above: Performed By: #### C BC ####[facility] [address] [place] [id number]. Ricky Valenzuela Monocytes/100 WBC (Bld) 7.7 % Normal 1.7-12.0 [facility] Comment on above: Performed By: #### C BC ####[facility] [address] [place] [address]Dr. Ricky Valenzuela NEUT # 6.3 103/ul Normal 1.4-6.5 [facility] Comment on above: Performed By: #### C BC ####[facility] [address] [place] [address]Dr. Ricky Valenzuela Neutrophils/100 WBC (Bld) 57.0 % Normal 43.0-75.0 [facility] Comment on above: Performed By: #### C BC ####[facility] [address] [place] [address]Dr. Ricky Valenzuela Platelet mean volume (Bld) [Entitic vol] 9.8 fL Normal 9.5-13.5 [facility] Comment on above: Performed By: #### C BC ####[facility] [address] [place] [address]Dr. Ricky Valenzuela PLT 246 103/ul Normal 150-450 [facility] Comment on above: Performed By: #### C BC ####[facility] [address] [place] [address]Dr. Ricky Valenzuela RBC 4.25 106/ul Normal 4.20-5.40 [facility] Comment on above: Performed By: #### C BC ####[facility] [address] [place] [id number]. Ricky Valenzuela WBC 11.1 103/ul Critically high 4.0-11.0 The [facility] Comment on above: Performed By: #### C BC ####[facility] [address] [place] [address]Dr. Ricky Valenzuela GLYCOHEMOGLOBIN A1Con 2022 ADA RECOMMENDATION SEE BELOW Normal [facility] Comment on above: Result Comment: ADA RECOMMENDED LIMIT 4.0 - 6.0 ADA THERAPEUTIC TARGET < 7.0 ACTION SUGGESTED > 7.0 Performed By: #### A 1C ####[facility] [address] [place] [id number] Valenzuela Glucose [Mass/Vol] 160 mg/dL Normal [facility] Comment on above: Performed By: #### A 1C ####[facility] [address] [place] [address]DrPasquale Valenzuela HbA1c (Bld) [Mass fraction] 7.2 % Critically high 4.5-6.2 [facility] Comment on above: Performed By: #### A 1C ####[facility] [address] [place] [address]Dr. Ricky Valenzuela MICROALBUMIN, RAND URon - mALB <1.3 Normal <=30.0 [facility] Comment on above: Performed By: #### M ALBR #### [facility] [address] [place] [address] [address] Ricky Valenzuela PROF 14(COMP METB)on 023 Albumin [Mass/Vol] 3.3 g/dL Critically low 3.4-5.0 Th [facility] Comment on above: Performed By: #### C MP #### [facility] [address] [place] [address] [address] Ricky Valenzuela Albumin/Globulin [Mass ratio] 0.9 {ratio} Normal [facility] Comment on above: Performed By: #### C MP #### [facility] [address] [address] [address] Ricky Valenzuela ALP [Catalytic activity/Vol] 90 U/L Normal 46-116 [facility] Comment on above: Performed By: #### C MP #### [facility] [address] [address] [address] Ricky Valenzuela ALT [Catalytic activity/Vol] 42 U/L Normal 14-59 [facility] Comment on above: Performed By: #### C MP #### [facility] [address] [address] [address] Ricky Valenzuela Anion gap [Moles/Vol] 10.1 mmol/L Normal [facility] Comment on above: Performed By: #### C MP #### [facility] [address] [address] [address] Ricky Valenzuela AST [Catalytic activity/Vol] 21 U/L Normal 15-37 [facility] Comment on above: Performed By: #### C MP #### [facility] [address] [address] [address] Ricky Valenzuela Bilirubin [Mass/Vol] 0.3 mg/dL Normal 0.2-1.0 [facility] Comment on above: Performed By: #### C MP #### [facility] [address] [address] [address] Ricky Valenzuela Calcium [Mass/Vol] 9.8 mg/dL Normal 8.5-10.1 [facility] Comment on above: Performed By: #### C MP #### [facility] [address] [address] [address] Ricky Valenzuela Chloride [Moles/Vol] 99 mmol/L Normal 98-107 [facility] Comment on above: Performed By: #### C MP #### [facility] [address] [address] [address] Ricky Valenzuela CO2 [Moles/Vol] 33.7 mmol/L Critically high 21.0-32.0 [facility] Comment on above: Performed By: #### C MP #### [facility] [address] [address] [address] Ricky Valenzuela Creatinine [Mass/Vol] 0.94 mg/dL Normal 0.55-1.02 [facility] Comment on above: Performed By: #### C MP #### [facility] [address] [address] [address] Ricky Valenzuela EGFR-AF CROATIAN >60 Normal >=60 [facility] Comment on above: Performed By: #### C MP #### [facility] [address] [place] [address] Dr. Ricky Valenzuela EGFR-NON AF CROATIAN >60 Normal >=60 [facility] Comment on above: Performed By: #### C MP #### [facility] [address] [place] [address] Dr. Ricky Valenzuela Globulin (S) [Mass/Vol] 3.8 g/dL Normal [facility] Comment on above: Performed By: #### C MP #### [facility] [address] [address] [address] Ricky Valenzuela Glucose [Mass/Vol] 168 mg/dL Critically high 74-106 T [facility] Comment on above: Performed By: #### C MP #### [facility] [address] [place] [address] Dr. Ricky Valenzuela Potassium [Moles/Vol] 4.8 mmol/L Normal 3.5-5.1 [facility] Comment on above: Performed By: #### C MP #### [facility] [address] [place] [address] Dr. Ricky Valenzuela Protein [Mass/Vol] 7.1 g/dL Normal 6.4-8.2 [facility] Comment on above: Performed By: #### C MP #### [facility] [address] [place] [address] Dr. Ricky Valenzuela Sodium [Moles/Vol] 138 mmol/L Normal 136-145 [facility] Comment on above: Performed By: #### C MP #### [facility] [address] [place] [address] Dr. Ricky Valenzuela Urea nitrogen [Mass/Vol] 22.0 mg/dL Critically high 7.0-18.0 [facility] Comment on above: Performed By: #### C MP #### [facility] [address] [place] [address] Dr. Ricky Valenzuela Urea nitrogen/Creatinine [Mass ratio] 23.4 mg/mg Normal [facility] Comment on above: Performed By: #### C MP #### [facility] [address] [place] [address] Dr. Ricky Valenzuela Cytologyon 08-30-2021 Cytology (NOTE) INTERPRETATION Vaginal material, (ThinPrep vial, Imaging-assisted review): Specimen Adequacy: Satisfactory for evaluation. Descriptive Diagnosis: Negative for intraepithelial lesion or malignancy. Billing And Insurance Coordinator: CLARK Delacruz(ASCP) Electronically Signed Out ss/09/07/2021 Source: A: Vaginal material, (ThinPrep vial, Imaging-assisted review) Clinical History Hysterectomy Surgery: Salpingostomy; Ovary removal Z12.4 Encounter for screening for malignant neoplasm of cervix GYNECOLOGIC CYTOLOGY REPORT Patient Name: KARINA DE OLIVEIRA [facility] Rec: [id number] Path Number: [id number] [facility] [employer] ANATOMIC PATHOLOGY [address] [place] [id number] Normal [facility] Comment on above: Performed By: #### P PPVP #### [address] [id number] [employer] Education Classroom Aide: Luca Cummins MD CBC AUTO DIFFon 08-09-2021 BASO # 0.1 103/ul Normal 0.0-0.1 [facility] Comment on above: Performed By: #### C BC #### [facility] [address] [place] [address] Dr. Ricky Valenzuela Basophils/100 WBC (Bld) 0.8 % Normal 0.2-2.0 [facility] Comment on above: Performed By: #### C BC #### [facility] [address] [place] [address] Dr. Ricky Valenzuela EO # 0.2 103/ul Normal 0.0-0.7 [facility] Comment on above: Performed By: #### C BC #### [facility] [address] [place] [address] Dr. Ricky Valenzuela Eosinophils/100 WBC (Bld) 2.1 % Normal 0.9-7.0 [facility] Comment on above: Performed By: #### C BC #### [facility] [address] [place] [address] Dr. Ricky Valenzuela Erythrocyte distribution width (RBC) [Ratio] 15.2 % Critically high 11.0-15.0 [facility] Comment on above: Performed By: #### C BC #### [facility] [address] [place] [address] Dr. Ricky Valenzuela Hematocrit (Bld) [Volume fraction] 41.5 % Normal 36.0-48.0 [facility] Comment on above: Performed By: #### C BC #### [facility] [address] [place] [address] Dr. Ricky Valenzuela Hemoglobin (Bld) [Mass/Vol] 13.5 g/dL Normal 12.0-16.0 [facility] Comment on above: Performed By: #### C BC #### [facility] [address] [place] [address] Dr. Ricky Valenzuela IG # 0.42 10e3/ul Critically high 0.00-0.03 [facility] Comment on above: Performed By: #### C BC #### [facility] [address] [place] [address] Dr. Ricky Valenzuela IG % 3.8 % Critically high 0.0-0.5 [facility] Comment on above: Performed By: #### C BC #### [facility] [address] [place] [address] Dr. Ricky Valenzuela LYMPH # 3.3 103/ul Normal 1.2-3.8 [facility] Comment on above: Performed By: #### C BC #### [facility] [address] [place] [address] Dr. Ricky Valenzuela Lymphocytes/100 WBC (Bld) 29.1 % Normal 20.5-60.0 [facility] Comment on above: Performed By: #### C BC #### [facility] [address] [place] [address] Dr. Ricky Valenzuela MANUAL DIFF REQ NO Normal [facility] Comment on above: Performed By: #### C BC #### [facility] [address] [place] [address] Dr. Ricky Valenzuela MCH (RBC) [Entitic mass] 32.4 pg Normal 26.7-34.0 [facility] Comment on above: Performed By: #### C BC #### [facility] [address] [address] [address] Ricky Valenzuela MCHC (RBC) [Mass/Vol] 32.5 g/dL Normal 29.9-35.2 [facility] Comment on above: Performed By: #### C BC #### [facility] [address] [place] [address] Dr. Ricky Valenzuela MCV (RBC) [Entitic vol] 99.5 fL Critically high 81.0-99.0 [facility] Comment on above: Performed By: #### C BC #### [facility] [address] [place] [address] Dr. Ricky Valenzuela MONO # 0.8 103/ul Normal 0.3-0.8 [facility] Comment on above: Performed By: #### C BC #### [facility] [address] [place] [address] Dr. Ricky Valenzuela Monocytes/100 WBC (Bld) 7.5 % Normal 1.7-12.0 [facility] Comment on above: Performed By: #### C BC #### [facility] [address] [place] [address] Dr. Ricky Valenzuela NEUT # 6.3 103/ul Normal 1.4-6.5 [facility] Comment on above: Performed By: #### C BC #### [facility] [address] [place] [address] Dr. Ricky Valenzuela Neutrophils/100 WBC (Bld) 56.7 % Normal 43.0-75.0 [facility] Comment on above: Performed By: #### C BC #### [facility] [address] [place] [address] Dr. Ricky Valenzuela Platelet mean volume (Bld) [Entitic vol] 9.8 fL Normal 9.5-13.5 [facility] Comment on above: Performed By: #### C BC #### [facility] [address] [place] [address] Dr. Ricky Valenzuela PLT 265 103/ul Normal 150-450 [facility] Comment on above: Performed By: #### C BC #### [facility] [address] [address] [address] Ricky Valenzuela RBC 4.17 106/ul Critically low 4.20-5.40 [facility] Comment on above: Performed By: #### C BC #### [facility] [address] [address] [address] Ricky Valenzuela WBC 11.2 103/ul Critically high 4.0-11.0 [facility] Comment on above: Performed By: #### C BC #### [facility] [address] [address] [address] Ricky Valenzuela GLYCOHEMOGLOBIN A1Con 2021 ADA RECOMMENDATION SEE BELOW Normal [facility] Comment on above: Result Comment: ADA RECOMMENDED LIMIT 4.0 - 6.0 ADA THERAPEUTIC TARGET < 7.0 ACTION SUGGESTED > 7.0 Performed By: #### A 1C ####[facility] [address] [place] [address]Dr. Ricky Valenzuela Glucose [Mass/Vol] 183 mg/dL Normal [facility] Comment on above: Performed By: #### A 1C ####[facility] [address] [place] [id number]. Ricky Valenzuela HbA1c (Bld) [Mass fraction] 8.0 % Critically high 4.5-6.2 [facility] Comment on above: Performed By: #### A 1C ####[facility] [address] [place] [address]Dr. Ricky Valenzuela LIPID PROFILEon 08-09-2021 CHOL-HDL RATIO NORM SEE BELOW Normal [facility] Comment on above: Result Comment: 3.3 - 4.4 LOW RISK 4.4 - 7.1 AVERAGE RISK 7.1 - 11.0 MODERATE RISK >11.0 HIGH RISK Performed By: #### C MP, LIPID #### [facility] [address] [address] [address] Ricky Valenzuela Cholesterol [Mass/Vol] 239 mg/dL Critically high <=200 [facility] Comment on above: Performed By: #### C MP, LIPID #### [facility] [address] [address] [address] Ricky Valenzuela Cholesterol in HDL [Mass/Vol] 36 mg/dL Critically low 40-60 [facility] Comment on above: Performed By: #### C MP, LIPID #### [facility] [address] [address] [address] Ricky Valenzuela Cholesterol in LDL [Mass/Vol] 164.2 mg/dL Normal [facility] Comment on above: Performed By: #### C MP, LIPID #### [facility] [address] [address] [address] Ricky Valenzuela Cholesterol.total/Cho lesterol in HDL [Mass ratio] 6.6 {ratio} Normal [facility] Comment on above: Performed By: #### C MP, LIPID #### [facility] [address] [address] [address] Ricky Valenzuela HDL NORMAL > or = 60 mg/dl - LO W CARDIOVASCULAR RISK <40 mg/dl - HIGH CARDIOVASCULAR RISK Normal [facility] Comment on above: Performed By: #### C MP, LIPID #### [facility] [address] [address] [address] Ricky Valenzuela LDL CALC NORMAL SEE BELOW Normal [facility] Comment on above: Result Comment: <100 mg/dl OPTIMAL 100 - 129 mg/dl NEAR OR ABOVE OPTIMAL 130 - 159 mg/dl BORDERLINE HIGH 160 - 189 mg/dl HIGH >190 mg/dl VERY HIGH Performed By: #### C MP, LIPID #### [facility] [address] [address] [address] Ricky Valenzuela Triglyceride [Mass/Vol] 194 mg/dL Critically high <=150 [facility] Comment on above: Performed By: #### C MP, LIPID #### [facility] [address] [address] [address] Ricky Valenzuela VLDL CALC 38.8 mg/dL Normal [facility] Comment on above: Performed By: #### C MP, LIPID #### [facility] [address] [address] [address] Ricky Valenzuela MICROALBUMIN, RAND URon 06-2 mALB 13.1 mg/L Normal <=30.0 [facility] Comment on above: Performed By: #### M ALBR ####[facility] [address] [place] [address]Dr. Ricky Valenzuela PROF 14(COMP METB)on 022 Albumin [Mass/Vol] 3.3 g/dL Critically low 3.4-5.0 [facility] Comment on above: Performed By: #### C MP, LIPID #### [facility] [address] [address] [address] Ricky Valenzuela Albumin/Globulin [Mass ratio] 0.8 {ratio} Normal [facility] Comment on above: Performed By: #### C MP, LIPID #### [facility] [address] [address] [address] Ricky Valenzuela ALP [Catalytic activity/Vol] 93 U/L Normal 46-116 [facility] Comment on above: Performed By: #### C MP, LIPID #### [facility] [address] [address] [address] Ricky Valenzuela ALT [Catalytic activity/Vol] 37 U/L Normal 14-59 [facility] Comment on above: Performed By: #### C MP, LIPID #### [facility] [address] [address] [address] Ricky Valenzuela Anion gap [Moles/Vol] 10.9 mmol/L Normal [facility] Comment on above: Performed By: #### C MP, LIPID #### [facility] [address] [address] [address] Ricky Valenzuela AST [Catalytic activity/Vol] 10 U/L Critically low 15-37 [facility] Comment on above: Performed By: #### C MP, LIPID #### [facility] [address] [address] [address] Ricky Valenzuela Bilirubin [Mass/Vol] 0.2 mg/dL Normal 0.2-1.0 [facility] Comment on above: Performed By: #### C MP, LIPID #### [facility] [address] [address] [address] Ricky Valenzuela Calcium [Mass/Vol] 9.0 mg/dL Normal 8.5-10.1 [facility] Comment on above: Performed By: #### C MP, LIPID #### [facility] [address] [place] [address] Dr. Ricky Valenzuela Chloride [Moles/Vol] 100 mmol/L Normal 98-107 [facility] Comment on above: Performed By: #### C MP, LIPID #### [facility] [address] [place] [address] Dr. Ricky Valenzuela CO2 [Moles/Vol] 32.2 mmol/L Critically high 21.0-32.0 [facility] Comment on above: Performed By: #### C MP, LIPID #### [facility] Laboratory [address] [place] [address] Dr. Ricky Valenzuela Creatinine [Mass/Vol] 0.95 mg/dL Normal 0.55-1.02 [facility] Comment on above: Performed By: #### C MP, LIPID #### [facility] [address] [place] [address] Dr. Ricky Valenzuela EGFR-AF CROATIAN >60 Normal >=60 [facility] Comment on above: Performed By: #### C MP, LIPID #### [facility] [address] [place] [address] Dr. Ricky Valenzuela EGFR-NON AF CROATIAN >60 Normal >=60 [facility] Comment on above: Performed By: #### C MP, LIPID #### [facility] [address] [place] [address] Dr. Ricky Valenzuela Globulin (S) [Mass/Vol] 4.2 g/dL Normal [facility] Comment on above: Performed By: #### C MP, LIPID #### [facility] [address] [place] [address] Dr. Ricky Valenzuela Glucose [Mass/Vol] 200 mg/dL Critically high 74-106 T [facility] Comment on above: Performed By: #### C MP, LIPID #### [facility] [address] [place] [address] Dr. Ricky Valenzuela Potassium [Moles/Vol] 4.1 mmol/L Normal 3.5-5.1 [facility] Comment on above: Performed By: #### C MP, LIPID #### [facility] [address] [place] [address] Dr. Ricky Valenzuela Protein [Mass/Vol] 7.5 g/dL Normal 6.4-8.2 [facility] Comment on above: Performed By: #### C MP, LIPID #### [facility] [address] [address] [address] Ricky Valenzuela Sodium [Moles/Vol] 139 mmol/L Normal 136-145 [facility] Comment on above: Performed By: #### C MP, LIPID #### [facility] [address] [place] [address] Dr. Ricky Valenzuela Urea nitrogen [Mass/Vol] 13.0 mg/dL Normal 7.0-18.0 [facility] Comment on above: Performed By: #### C MP, LIPID #### [facility] [address] [place] [address] Dr. Ricky Valenzuela Urea nitrogen/Creatinine [Mass ratio] 13.7 mg/mg Normal [facility] Comment on above: Performed By: #### C MP, LIPID #### [facility] [address] [place] [address] Dr. Ricky Valenzuela POINT OF CARE GLUCOSEon 06-12 Glucose [Mass/Vol] 176 mg/dL Critically high 74-106 [facility] Comment on above: Performed By: #### P OCGLUC #### [facility] [address] [place] [address] Dr. Ricky Valenzuela Vital Signs Date Time Vital Sign Value Performing Clinician Facility 01-18-2023 09:10-0500 Body height 156.21 cm Elle Hendricks Other [employer] Other 01-18-2023 09:10-0500 Body mass index (BMI) [Ratio] 42.82 kg/m2 Elle Hendricks Other [facility] Other 01-18-2023 09:10-0500 Body temperature 98.2 [degF] Elle Hendricks Other [facility] Other 01-18-2023 09:10-0500 Body weight 104.51 kg Elle Hendricks Other [facility] Other 01-18-2023 09:10-0500 Diastolic blood pressure 92 mm[Hg] Elle Hendricks Other [facility] Other 01-18-2023 09:10-0500 Respiratory rate 18 /min Elle Hendricks Other [facility] Other 01-18-2023 09:10-0500 SaO2% (BldA) [Mass fraction] 97 % Elle Hendricks Other [facility] Other 01-18-2023 09:10-0500 Systolic blood pressure 145 mm[Hg] Elle Hendricks Other [facility] Other Encounters Encounter Date Encounter Type Care Provider Facility Start: 05-02-2023 End: 05-02-2023 ambulatory SHAIKH MARICEL Not Available Start: 04-30-2023 End: 04-30-2023 ambulatory [facility] Work Phone: Start: 04-30-2023 End: 04-30-2023 Patient encounter procedure [facility] Work Phone: Start: 03-21-2023 Orders Only Shaikh Maricel HOLLIS Work Phone: [facility] Comment on above: Diabetic polyneuropa thy associated with type 2 diabetes mellitus (CMS/HCC) (Primary Dx) Start: 03-19-2023 End: 03-19-2023 ambulatory Ana Luisa Curtis Other [facility] Other Start: 03-19-2023 Office outpatient vi sit 15 minutes Ana Luisa Julianoey [facility] Start: 02-25-2023 End: 02-25-2023 ambulatory ELIDA GARCIA Not Available Start: 01-29-2023 End: 01-29-2023 ambulatory SHAIKH MARICEL Not Available Start: 01-23-2023 End: 01-23-2023 ambulatory Ana Luisa Curtis Other [facility] Other Start: 01-23-2023 Office outpatient vi sit 15 minutes Ana Luisa Curtis [facility] Start: 01-18-2023 End: 01-18-2023 ambulatory Elle Hendricks Other [facility] Other Start: 01-18-2023 Office outpatient vi sit 15 minutes Elle Hendricks [facility] Start: 09-19-2022 End: 09-19-2022 ambulatory Ana Luisa Curtis Other [facility] Other Start: 09-19-2022 Telephone encounter Ana Luisa Curtis [facility] Start: 07-12-[address] JONATHAN EDWARDS Facili ty:H1 Start: 06-07-2022 End: 06-08-[address] JONATHAN EDWARDS Facility:[facility]1 Start: 05-02-2022 End: 05-02-2022 ambulatory Ana Luisa Curtis Other [facility] Other Start: 05-02-2022 Office outpatient ne w [...] Start: 08-30-2021 End: 08-31-2021 ambulatory NIKKIE BARCLAY [facility] Start: 08-30-2021 End: 08-30-2021 Subsequent hospital visit by physician Sr House DO Work Phone: [facility] Laboratory Comment on above: Routine cervical sme ar Start: 08-16-2021 Encounter for genera l adult medical examination without abnormal findings DR RICARDO HOLM . [facility] Start: 08-09-2021 End: 08-10-2021 Encounter for [...] ion [Identifier] in Cervix by Cyto stain [facility] DO Work Phone: Plan of Treatment Date Care Activity Detail Author Start: 03-08-2026 Screening for malign ant neoplasm of colon [facility] Start: 08-30-2024 Screening for malign ant neoplasm of cervix [facility] Start: 03-20-2024 Screening for malign ant neoplasm of breast Mammogram [facility] Start: 02-27-2024 End: 02-27-2024 Patient encounter procedure 02/27/2024 11:35 AM EST Office Visit [facility] [address] [place] [address] Elida Garcia MD [address] [place] [address] [facility] Start: 02-12-2024 Glaucoma screening Diabetes: R etinopathy Screening [facility] Start: 08-11-2023 Influenza vaccination Influenza Vacc ine (#1) [facility] Comment on above: Postponed from 10/12 (Patient Refused) Start: 05-02-2023 End: 05-02-2023 Patient encounter procedure 05/02/2023 2:00 PM EDT [facility] [address] [place] [address] Shaikh Connelly MD [address] [place] [id number] [facility] Start: 02-17-2023 Hemoglobin A1c measurement Diabetes: Hemoglobin A1C [facility] Start: 09-04-2022 End: 09-04-2022 Patient encounter procedure 09/04/2022 Office Visit Obstetrics and Gynecology Nikkie Barclay, ANGEL - CN [address] [facility] [address] [place] [address] [facility] Start: 10-12-2021 Influenza vaccination Flu vaccine (# 1) [facility] Start: 10-21-2013 Screening for malign ant neoplasm of breast Breast cancer screen [facility] Start: 10-21-2013 Shingles vaccine (1 of 2) Shingles vaccine (1 of 2) [facility] Start: 10-21-2008 Screening for malign ant neoplasm of colon [facility] Start: 2003 Lipid panel Lipids [facility] Start: 10-21-1998 Diabetes screen Diabetes screen [facility] Start: 10-21-1993 Screening for malign ant neoplasm of cervix [facility] Start: 10-21-1982 DTaP/Tdap/Td vaccine (1 - Tdap) DTaP/Tdap/Td vaccine (1 - Tdap) [facility] Start: 10-21-1982 Urine screening for protein Diabetes: Urine Protein Screening [facility] Start: 10-21-1981 Hepatitis C screening Hepatitis C sc reen [facility] Start: 10-21-1978 HIV screening HIV screen [facility] Start: 1975 Depression Screen Depression Screen [facility] Start: 04-20-1964 COVID-19 Vaccine (#1) COVID-19 Vacci ne (#1) [facility] [employer] [facility] Start: 1965 Screening for malign ant neoplasm of colon [facility] End: 08-30-2021 Cytopathology procedure, preparation of smear, genital source [facility] Lab Routine Routine cervical smear 1 Occurrences starting 08/30/2021 until 08/30/2021 [facility] [employer] Work Phone: Comment on above: 1 Occurrences starti ng 08/30/2021 until 08/30/2021 Immunizations Immunization Date Immunization Notes Care Provider Tima garcia 01-14-2017 influenza, injectabl e, quadrivalent, preservative free [facility] Payers Date Payer Category Payer Unknown [employer] [id number] 2022-Present [phone] [address] [address] [place] [address] [id number] 2012 Medicare MEDICARE MEDICAR E PART B [id number] 2012-Present [address] [address] [place] [address] Medicare [id number] 1963 Unknown [id number] 2.16.840.1.541129.3.579.2.17 3 1963 Unknown [id number] 2.16.840.1.712541.3.579.2.59 3 1963 Unknown [id number] 2.16.840.1.954279.3.579.2.59 3 1963 Unknown [id number] 2.16.840.1.222438.3.579.2.59 3 1963 Unknown [id number] 2.16.840.1.841694.3.579.2.59 3 1963 Unknown [id number] 2.16.840.1.321668.3.579.2.59 3 1963 Unknown [id number] 2.16.840.1.107599.3.579.2.59 3 1963 Unknown [id number] 2.16.840.1.570589.3.579.2.59 3 1963 Unknown [id number] 2.16.840.1.933597.3.579.2.59 3 1963 Unknown [id number] 2.16.840.1.468535.3.579.2.59 3 1963 Unknown [id number] 2.16.840.1.413539.3.579.2.59 3 1963 Unknown [id number] 2.16.840.1.704227.3.579.2.59 3 1963 Unknown [id number] 2.16.840.1.725829.3.579.2.59 3 1963 Unknown [id number] 2.16.840.1.702248.3.579.2.59 3 1963 Unknown [id number] 2.16.840.1.453349.3.579.2.59 3 1963 Unknown [id number] 2.16.840.1.195498.3.579.2.59 3 1963 Unknown [id number] 2.16.840.1.660993.3.579.2.59 3 1963 Unknown [id number] 2.16.840.1.512638.3.579.2.12 59 1963 Unknown [id number] 2.16.840.1.564846.3.579.2.12 59 1963 Unknown [id number] 2.16.840.1.790130.3.579.2.12 59 1959 Medicare [id number] 1.2.840.329091.1.13.239.2.7. 3.323888.315 1959 Unknown [id number] 1.2.840.112296.1.13.239.2.7. 3.385020.315 1959 Unknown [id number] 2.16.840.1.774053.19 Medicare Medicare [id number] Self-pay Self Pay [id number] Social History Date Type Detail Facility Start: 08-30-2021 [facility] [employer] Phone: History of tobacco use Cigarette Smoker [employer] Phone: Start: 08-30-2021 End: 01-29-2023 Tobacco use and exposure Smokeless tobacco non-user [employer] Phone: Start: 08-30-2021 Alcohol intake Current drinke r of alcohol (finding) [employer] Phone: Start: 08-30-2021 History SDOH Alcohol Comment occasional [employer] Phone: Start: 1965 Sex Assigned At Not on file [employer] Phone: Start: 08-20-2021 End: 08-30-2021 Exposure to SARS-CoV-2 (event) Not sure [employer] Start: 02-25-2023 Sex Assigned At [facility] [employer] Other Start: 01-23-2023 End: 01-29-2023 Tobacco smoking status [facility] Ex-smoker [facility] History of tobacco use Current smoker [facility] Start: 01-29-2023 End: 02-25-2023 Cigarettes smoked current (pack per day) - Reported 0.5 [facility] Start: 02-25-2023 Alcohol intake Lifetime non-d gus (finding) [facility] Start: 1965 Sex Assigned At Female F [facility] Medical Equipment Procedure Code Equipment Code Equipment Origin al Text Equipment Identifier Dates USE TO TEST BLOO D SUGAR TWICE DAILY [id number] Start: 06-08-2021 Clinical Notes 06-20-2021 to 03-19-2023 [...] Mar, Left hand pain (ICD-10 - M79.642) [employer] Other 12-13-2023 Evaluation note* Encounter Date Diagnosis [...] noted. Patient will f/u in 4 weeks. [employer] Other 12-08-2023 Evaluation note* Encounter Date Diagnosis [...] left hand x-ray that was performed at [facility] which revealed degenerative changes in the hand as well as a remote avulsion fracture of the thumb. Patient states her family doctor is treating her for gout in her hand. Jan, History of gout (ICD-10 - Z87.39) Jan, Other Gout material w as printed [employer] Other 08-09-2023 Evaluation note* Encounter Date Diagnosis Assessment Notes Treatment Notes Treatment Clinical Notes Sep, Right wrist pain (ICD-10 - M25.531) [employer] Other 04-27-2023 NoteCONSULTATION CONSULTATION DATE: 06/07/2022 TO: [...] our patients to inform us about any [id number] medications or herbal remedies/nutritional supplements/alternative remedies. 2. [...] treatment options with their primary care provider.[facility] [id number] Evaluation note * Encounter Date Diagnosis Assessment [...] understanding and is agreeable to treatment plan. [employer] Other 01-26-2023 NoteCONSULTATION PROCEDURE DATE: 03/08/2022 PREOPERATIVE [...] will be followed up in the clinic.[facility] [id number] NotePROCEDURE: XR KNEE LT 4V or > [...] Electronically authenticated by: PATTIE SALTER Date: 2022-02-16 11:29[facility]12-30-2022 NoteCONSULTATION CONSULTATION DATE: 02/09/2022 HISTORY OF PRESENT [...] office today. Patient agrees with this plan.[facility] [id number] NotePROCEDURE: XR WRIST RT MIN 3 V COMPARISON: None. HISTORY: Injury of right wrist FINDINGS: BONES:No acute fracture or dislocation. Corticated bone fragment identified along the first carpometacarpal joint [degenerative in nature SOFT TISSUES:Moderate diffuse soft tissue swelling EFFUSION:None visible. OTHER: Negative. IMPRESSION: Soft tissue swelling, no acute fracture Electronically authenticated by: RYAN GOLDMAN Date: 2021-11-16 18:59[facility] [id number] NoteCONSULTATION CONSULTATION DATE: 11/01/2021 HISTORY OF PRESENT [...] otherwise indicated. Patient agrees with this plan.[facility] [id number] NoteCONSULTATION PROCEDURE DATE: 11/01/2021 PRE AND POSTOPERATIVE [...] will be followed up in the clinic.[facility] [id number] NoteCONSULTATION PROCEDURE DATE: 08/09/2021 PREOPERATIVE DIAGNOSIS: Bilateral [...] will be followed up in the clinic. [facility] Signed and Approved by: CRYS PIERCE . 08/10/2021 13:37:00[facility]06-08-2022 NoteCONSULTATION CONSULTATION DATE: 07/19/2021 HISTORY OF PRESENT [...] and Approved by: CRYS PIERCE . 07/20/2021 10:33:00[facility] [id number] NotePROCEDURE: XR FOOT RT MIN 3 VIEWS [...] Electronically authenticated by: PATTIE SALTER Date: 2021-07-05 11:11[facility]05-10-2022 NoteCONSULTATION CONSULTATION DATE: 06/20/2021 CHIEF COMPLAINT: Low [...] like to proceed. CC: Jonathan Edwards M.D. [facility] Signed and Approved by: DR RICARDO HOLM . 06/27/2021 10:40:00[facility] Diagnosis Routine cervical smear Screening for malignant neoplasm of the cervix documented in this encounter [facility] Work Phone: evaluation note* Diagnosis Diabetic polyneuropathy associated with type 2 diabetes mellitus (CMS/HCC)- Primary documented in this encounter [facility] noteNo assessment information [facility] Work Phone: History general Narrative - Reported* Type Description Date Medical History GERD (gastroesophageal reflux di sease) Medical History Migraine headache Medical History Arthritis Medical History Edema of both legs Medical History Diabetes mellitus, type 2 Medical History Chronic back pain Surgical History ablasion Surgical History back surgery Surgical History hysterectomy Surgical History tubal ligation Hospitalization History see above [employer] Other Summary Purpose Family History No Family [...] Care Teams (unrecognized sec tion and content) 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 [employer] [facility]. provides no warranty or guarantee of the accuracy or completeness of information in this document.
== END 2023-07-03 10:54 | disposition home or self-care (01) ==
LOC: EC 10:53
PROVIDERS: PCP Internal Medicine; Visit Provider Podiatrist Foot & Ankle Surgery
DX: M79.672 Pain in left foot (principal); S92.302D Fracture of unspecified metatarsal bone(s), left foot, subsequent encounter for fracture with routine healing; S93.326D Dislocation of tarsometatarsal joint of unspecified foot, subsequent encounter
CPT/HCPCS: 73630

== ENCOUNTER 2023-07-24 13:37 | Outpatient (OUT) | payer OTHER, MEDICARE, SELFPAY ==
--- NOTE | 2023-07-24 | XR_ITS ---
The [address] [address] Patient Name: KARINA DE OLIVEIRA MRN: [id number] date: 1965 Sex: F Assigned Patient Location: Current Patient Location: Accession/Order Number: [id number] Exam Date: 07/24/2023 13:37 Report Date: 07/24/2023 15:51 At the request of: SUSSY JONES Procedure: XR foot LT min 3V PROCEDURE: XR foot LT min 3V COMPARISON: 07/03/2023 HISTORY: LEFT FOOT PAIN FINDINGS: BONES:Stable fusion of the medial midfoot forefoot with a plate and multiple screws. No mechanical failure. Stable oblique fracture through the diaphysis of the second metatarsal and transverse intertubercular fracture base of the fifth metatarsal with no significant interval bony bridging. Possible proximal metatarsal fractures with lateral subluxation, Lisfranc type, stable. SOFT TISSUES:Negative. No visible soft tissue swelling. EFFUSION:None visible. OTHER: Negative. XR/XR foot LT min 3V IMPRESSION: Stable postsurgical and degenerative changes Stable fractures with no significant bony bridging Electronically authenticated by: RYAN GOLDMAN Date: 07/24/2023 15:51
== END 2023-07-24 13:38 | disposition home or self-care (01) ==
LOC: EC 13:37
PROVIDERS: PCP Internal Medicine; Visit Provider Podiatrist Foot & Ankle Surgery
DX: M79.672 Pain in left foot (principal); Z98.890 Other specified postprocedural states; S92.325D Nondisplaced fracture of second metatarsal bone, left foot, subsequent encounter for fracture with routine healing; S92.355D Nondisplaced fracture of fifth metatarsal bone, left foot, subsequent encounter for fracture with routine healing
CPT/HCPCS: 73630

== ENCOUNTER 2023-07-27 08:16 | Outpatient (OUT) | payer OTHER, MEDICARE, SELFPAY ==
--- OUTSIDE RECORDS SUMMARY | 2023-07-27 08:19 | XMS_ITS | CCD ---
Author Organization [facility] Care Team Providers Care Health Educator Name Role Phone House DO, Sr Jonathan Klein Primary Care Provider [phone] NIKKIE BARCLAY Referring Unavailabl e HOUSE, SR [...] BASURTO Primary Care Unavailable HOUSE, DR BASURTO Consulting Unavailable HOLM ., DR RICARDO Belcher Attending Unavailable PIERCE ., CRYS Consulting Unavailable HOUSE, DR BASURTO Primary Care Unavailable HALKER .JOSE Unavailable LAKSHMIPATHY ., NARENDRANATH Admitting Nellie vailable LAKSHMIPATHY ., NARENDRANATH Attending Nellie vailable PIERCE ., CRYS Consulting [...] Unavailable GAETANO, DR PATTIE Nieves Consulting Unavailable [facility], SUSSY Dos Santos Consulting Unavailable FRANKLIN PARK, DR BASURTO Attending Unavailable FRANKLIN PARK, DR BASURTO Primary Care Unavailable HOUSE, DR BASURTO Admitting Unavailable HOUSE, DR BASURTO Consulting Unavailable FRANKLIN PARK, DR BASURTO Primary Care Unavailable GAETANO, DR PATTIE Nieves Consulting Unavailable LAKSHMIPATHY ., NARENDRANATH Admitting Nellie vailable LAKSHMIPATHY ., NARENDRANATH Attending Nellie vailable LAKSHMIPATHY ., BILLY Consulting Nellie vailable HOUSE, DR BASURTO Admitting Unavailable FRANKLIN PARK, DR BASURTO Attending Unavailable FRANKLIN PARK, DR BASURTO Primary Care Unavailable [place], DR RYAN Guzman Consulting Unavailable FRANKLIN PARK, DR JONATHAN Trimble Unavailable HOLM ., DR [...] Consulting Unavailable PIERCE ., CRYS Trimble Unavailable FRANKLIN PARK, DR BASURTO Primary Care Unavailable HOLM ., DR RICARDO Belcher Admitting Unavailable HOLM ., DR RICARDO Belcher Attending Unavailable LAKSHMIPATHY ., BILLY Consulting Nellie vailable FRANKLIN PARK, DR BASURTO Primary Care Unavailable HOLM ., DR RICARDO Belcher Admitting Unavailable HOLM ., DR RICARDO Belcher Attending Unavailable PIERCE ., CRYS Consulting Unavailable Elle Hendricks Unavailable Shaikh Connelly MD Primary Care Provider ELIDA GARCIA Attending Unavailable SHAIKH CONNELLY Attending Unavailable SHAIKH CONNELLY Attending Unavailable SHAIKH [...] day Active take 1 capsule by mo ut twice daily pregabalin (LYRICA) 50 MG capsule [...] 12, 2017 1:00am January 15, 2017 2:23pm Jiwlzdrnxmxx-Rl-Zjs n-Minerals (Multiple Vitamin, Womens) Tablet (1 source) Start: 01-12-2017 End: 01-15-2017 Auekpvzrxrzu-Kl-Qv on-Minerals (Multiple Vitamin, Womens) Tablet Discontinued PO [...] PATTIE SALTER Date: 2022-06-07 11:15 Normal [facility] CBC AUTO DIFFon 04-12-2022 BASO # 0.1 103/ul Normal 0.0-0.1 [facility] Comment on above: Performed By: #### C BC ####[facility] [address] [place], [place] [address]Dr. Ricky Valenzuela Basophils/100 WBC (Bld) 0.5 % Normal 0.2-2.0 [facility] Comment on above: Performed By: #### C BC ####[facility] [address] [place], [place] [address]Dr. Ricky Valenzuela EO # 0.3 103/ul Normal 0.0-0.7 [facility] Comment on above: Performed By: #### C BC ####[facility] [address] [place], [place] [address]Dr. Ricky Valenzuela Eosinophils/100 WBC (Bld) 3.0 % Normal 0.9-7.0 [facility] Comment on above: Performed By: #### C BC ####[facility] [address] [place], [place] [address]Dr. Ricky Valenzuela Erythrocyte distribution width (RBC) [Ratio] 14.8 % Normal 11.0-15.0 [facility] Comment on above: Performed By: #### C BC ####[facility] [address] [place], [place] [address]Dr. Ricky Valenzueal Hematocrit (Bld) [Volume fraction] 40.6 % Normal 36.0-48.0 [facility] Comment on above: Performed By: #### C BC ####[facility] [address] [place], [place] [address]Dr. Ricky Valenzuela Hemoglobin (Bld) [Mass/Vol] 13.5 g/dL Normal 12.0-16.0 [facility] Comment on above: Performed By: #### C BC ####[facility] [address] [place] [phone]. Ricky Valenzuela IG # 0.16 10e3/ul Critically high 0.00-0.03 [facility] Comment on above: Performed By: #### C BC ####[facility] [address] [place] [phone]. Ricky Valenzuela IG % 1.4 % Critically high 0.0-0.5 [facility] Comment on above: Performed By: #### C BC ####[facility] [address] [place] [phone]. Ricky Nicolas LYMPH # 3.4 103/ul Normal 1.2-3.8 [facility] Comment on above: Performed By: #### C BC ####[facility] [address] [place] [address]Dr. Ricky Valenzuela Lymphocytes/100 WBC (Bld) 30.4 % Normal 20.5-60.0 [facility] Comment on above: Performed By: #### C BC ####[facility] [address] [place] [phone]. Lesleysharron Valenzuela MANUAL DIFF REQ NO Normal [facility] Comment on above: Performed By: #### C BC ####[facility] [address] [place] [phone]. Ricky Nicolas MCH (RBC) [Entitic mass] 31.8 pg Normal 26.7-34.0 [facility] Comment on above: Performed By: #### C BC ####[facility] [address] [place] [phone]. Ricky Nicolas MCHC (RBC) [Mass/Vol] 33.3 g/dL Normal 29.9-35.2 [facility] Comment on above: Performed By: #### C BC ####[facility] [address] [place] [phone]. Ricky Nicolas MCV (RBC) [Entitic vol] 95.5 fL Normal 81.0-99.0 [facility] Comment on above: Performed By: #### C BC ####[facility] [address] [place] [phone]. Ricky Valenzuela MONO # 0.9 103/ul Critically high 0.3-0.8 [facility] Comment on above: Performed By: #### C BC ####[facility] [address] [place] [phone]. Ricky Valenzuela Monocytes/100 WBC (Bld) 7.7 % Normal 1.7-12.0 [facility] Comment on above: Performed By: #### C BC ####[facility] [address] [place] [phone]. Ricky Valenzuela NEUT # 6.3 103/ul Normal 1.4-6.5 [facility] Comment on above: Performed By: #### C BC ####[facility] [address] [place] [address]Dr. Ricky Valenzuela Neutrophils/100 WBC (Bld) 57.0 % Normal 43.0-75.0 [facility] Comment on above: Performed By: #### C BC ####[facility] [address] [place] [phone]. Ricky Valenzuela Platelet mean volume (Bld) [Entitic vol] 9.8 fL Normal 9.5-13.5 [facility] Comment on above: Performed By: #### C BC ####[facility] [address] [place] [phone]. Ricky Valenzuela PLT 246 103/ul Normal 150-450 [facility] Comment on above: Performed By: #### C BC ####[facility] [address] [place] [phone]. Ricky Valenzuela RBC 4.25 106/ul Normal 4.20-5.40 [facility] Comment on above: Performed By: #### C BC ####[facility] [address] [place] [phone]. Ricky Valenzuela WBC 11.1 103/ul Critically high 4.0-11.0 [facility] Comment on above: Performed By: #### C BC ####[facility] [address] [place] [phone] Valenzuela GLYCOHEMOGLOBIN A1Con 2022 ADA RECOMMENDATION SEE BELOW Normal [facility] [place] Comment on above: Result Comment: ADA RECOMMENDED LIMIT 4.0 - 6.0 ADA THERAPEUTIC TARGET < 7.0 ACTION SUGGESTED > 7.0 Performed By: #### A 1C ####[facility] [address] [place] [address]Dr. Ricky Valenzuela Glucose [Mass/Vol] 160 mg/dL Normal [facility] [place] Comment on above: Performed By: #### A 1C ####[facility] [address] [place] [address]DrPasquale Valenzuela HbA1c (Bld) [Mass fraction] 7.2 % Critically high 4.5-6.2 [facility] Comment on above: Performed By: #### A 1C ####[facility] [address] [place] [address]Dr. Ricky Valenzuela MICROALBUMIN, RAND URon mALB <1.3 Normal <=30.0 [facility] Comment on above: Performed By: #### M ALBR #### [facility] [address] [place] [address] Dr. Ricky Valenzuela PROF 14(COMP METB)on 023 Albumin [Mass/Vol] 3.3 g/dL Critically low 3.4-5.0 [facility] Comment on above: Performed By: #### C MP #### [facility] [address] [place] [address] Dr. Ricky Valenzuela Albumin/Globulin [Mass ratio] 0.9 {ratio} Normal [facility] Comment on above: Performed By: #### C MP #### [facility] [address] [place] [address] Dr. Ricky Valenzuela ALP [Catalytic activity/Vol] 90 U/L Normal 46-116 [facility] Comment on above: Performed By: #### C MP #### [facility] [address] [place] [address] Dr. Ricky Valenzuela ALT [Catalytic activity/Vol] 42 U/L Normal 14-59 [facility] Comment on above: Performed By: #### C MP #### [facility] [address] [place] [address] [address] Ricky Valenzuela Anion gap [Moles/Vol] 10.1 mmol/L Normal [facility] Comment on above: Performed By: #### C MP #### [facility] [address] [place] [address] [address] Ricky Valenzuela AST [Catalytic activity/Vol] 21 U/L Normal 15-37 [facility] Comment on above: Performed By: #### C MP #### [facility] [address] [address] [address] Ricky Valenzuela Bilirubin [Mass/Vol] 0.3 mg/dL Normal 0.2-1.0 [facility] Comment on above: Performed By: #### C MP #### [facility] [address] [address] [address] Ricky Valenzuela Calcium [Mass/Vol] 9.8 mg/dL Normal 8.5-10.1 [facility] [place] Comment on above: Performed By: #### C MP #### [facility] [address] [address] [address] Ricky Valenzuela Chloride [Moles/Vol] 99 mmol/L Normal 98-107 [facility] Comment on above: Performed By: #### C MP #### [facility] [address] [address] [address] Ricky Valenzuela CO2 [Moles/Vol] 33.7 mmol/L Critically high 21.0-32.0 [facility] Comment on above: Performed By: #### C MP #### [facility] [address] [address] [address] Ricky Valenzuela Creatinine [Mass/Vol] 0.94 mg/dL Normal 0.55-1.02 [facility] Comment on above: Performed By: #### C MP #### [facility] [address] [address] [address] Ricky Valenzuela EGFR-AF CITIZEN [place] >60 Normal >=60 [facility] Comment on above: Performed By: #### C MP #### [facility] [address] [address] [address] Ricky Valenzuela EGFR-NON AF CITIZEN OF [place] >60 Normal >=60 [facility] Comment on above: Performed By: #### C MP #### [facility] [address] [address] [address] Ricky Valenzuela Globulin (S) [Mass/Vol] 3.8 g/dL Normal [facility] Comment on above: Performed By: #### C MP #### [facility] [address] [address] [address] Ricky Valenzuela Glucose [Mass/Vol] 168 mg/dL Critically high 74-106 [facility] Comment on above: Performed By: #### C MP #### [facility] [address] [address] [address] Ricky Valenzuela Potassium [Moles/Vol] 4.8 mmol/L Normal 3.5-5.1 [facility] Comment on above: Performed By: #### C MP #### [facility] [address] [address] [address] Ricky Valenzuela Protein [Mass/Vol] 7.1 g/dL Normal 6.4-8.2 [facility] [place] Comment on above: Performed By: #### C MP #### [facility] [address] [address] [address] Ricky Valenzuela Sodium [Moles/Vol] 138 mmol/L Normal 136-145 [facility] Comment on above: Performed By: #### C MP #### [facility] [address] [address] [address] Ricky Valenzuela Urea nitrogen [Mass/Vol] 22.0 mg/dL Critically high 7.0-18.0 [facility] Comment on above: Performed By: #### C MP #### [facility] [address] [address] [address] Ricky Valenzuela Urea nitrogen/Creatinine [Mass ratio] 23.4 mg/mg Normal [facility] Comment on above: Performed By: #### C MP #### [facility] [address] [address] [address] Ricky Valenzuela Cytologyon 08-30-2021 Cytology (NOTE) INTERPRETATION Vaginal material, (ThinPrep vial, Imaging-assisted review): Specimen Adequacy: Satisfactory for evaluation. Descriptive Diagnosis: Negative for intraepithelial lesion or malignancy. Wheelchair Driver: CLARK Delacruz(ASCP) Electronically Signed Out /09/07/2021 Source: A: Vaginal material, (ThinPrep vial, Imaging-assisted review) Clinical History Hysterectomy Surgery: Salpingostomy; Ovary removal Z12.4 Encounter for screening for malignant neoplasm of cervix GYNECOLOGIC CYTOLOGY REPORT Patient Name: KARINA DE OLIVEIRA [facility] Rec: [id number] Path Number: [id number] [facility] [employer] CONSULTING PATHOLOGISTS [facility] [address] [place] [id number] Normal [facility] Comment on above: Performed By: #### P PPVP #### [address] [id number] Neonatal Critical Care Nurse: Luca Cummins MD CBC AUTO DIFFon 08-09-2021 BASO # 0.1 103/ul Normal 0.0-0.1 [facility] Comment on above: Performed By: #### C BC #### [facility] [address] [address] [address] Ricky Valenzuela Basophils/100 WBC (Bld) 0.8 % Normal 0.2-2.0 [facility] Comment on above: Performed By: #### C BC #### [facility] [address] [address] [address] Ricky Valenzuela EO # 0.2 103/ul Normal 0.0-0.7 [facility] Comment on above: Performed By: #### C BC #### [facility] [address] [address] [address] Ricky Valenzuela Eosinophils/100 WBC (Bld) 2.1 % Normal 0.9-7.0 [facility] Comment on above: Performed By: #### C BC #### [facility] [address] [place] [address] Dr. Ricky Valenzuela Erythrocyte distribution width (RBC) [Ratio] 15.2 % Critically high 11.0-15.0 [facility] Comment on above: Performed By: #### C BC #### [facility] [address] [place] [address] Dr. Ricky Valenzuela Hematocrit (Bld) [Volume fraction] 41.5 % Normal 36.0-48.0 [facility] Comment on above: Performed By: #### C BC #### [facility] [address] [place] [address] Dr. Ricky Valenzuela Hemoglobin (Bld) [Mass/Vol] 13.5 g/dL Normal 12.0-16.0 [facility] Comment on above: Performed By: #### C BC #### [facility] [address] [place] [address] Dr. Ricky Valenzuela IG # 0.42 10e3/ul Critically high 0.00-0.03 [facility] Comment on above: Performed By: #### C BC #### [facility] [address] [place] [address] Dr. Ricky Valenzuela IG % 3.8 % Critically high 0.0-0.5 [facility] Comment on above: Performed By: #### C BC #### [facility] [address] [place] [address] Dr. Ricky Valenzuela LYMPH # 3.3 103/ul Normal 1.2-3.8 [facility] Comment on above: Performed By: #### C BC #### [facility] [address] [place] [address] Dr. Ricky Valenzuela Lymphocytes/100 WBC (Bld) 29.1 % Normal 20.5-60.0 [facility] Comment on above: Performed By: #### C BC #### [facility] [address] [place] [address] Dr. Ricky Valenzuela MANUAL DIFF REQ NO Normal [facility] Comment on above: Performed By: #### C BC #### [facility] [address] [place] [address] Dr. Ricky Valenzuela MCH (RBC) [Entitic mass] 32.4 pg Normal 26.7-34.0 [facility] Comment on above: Performed By: #### C BC #### [facility] [address] [address] [address] Ricky Valenzuela MCHC (RBC) [Mass/Vol] 32.5 g/dL Normal 29.9-35.2 [facility] Comment on above: Performed By: #### C BC #### [facility] [address] [place] [address] Dr. Ricky Valenzuela MCV (RBC) [Entitic vol] 99.5 fL Critically high 81.0-99.0 [facility] Comment on above: Performed By: #### C BC #### [facility] [address] [place] [address] Dr. Ricky Valenzuela MONO # 0.8 103/ul Normal 0.3-0.8 [facility] Comment on above: Performed By: #### C BC #### [facility] [address] [place] [address] Dr. Ricky Valenzuela Monocytes/100 WBC (Bld) 7.5 % Normal 1.7-12.0 [facility] Comment on above: Performed By: #### C BC #### [facility] [address] [place] [address] Dr. Ricky Valenzuela NEUT # 6.3 103/ul Normal 1.4-6.5 [facility] Comment on above: Performed By: #### C BC #### [facility] [address] [place] [address] Dr. Ricky Valenzuela Neutrophils/100 WBC (Bld) 56.7 % Normal 43.0-75.0 [facility] Comment on above: Performed By: #### C BC #### [facility] [address] [place] [address] Dr. Ricky Valenzuela Platelet mean volume (Bld) [Entitic vol] 9.8 fL Normal 9.5-13.5 [facility] Comment on above: Performed By: #### C BC #### [facility] [address] [address] [address] Ricky Valenzuela PLT 265 103/ul Normal 150-450 [facility] Comment on above: Performed By: #### C BC #### [facility] [address] [address] [address] Ricky Valenzuela RBC 4.17 106/ul Critically low 4.20-5.40 [facility] Comment on above: Performed By: #### C BC #### [facility] [address] [address] [address] Ricky Valenzuela WBC 11.2 103/ul Critically high 4.0-11.0 [facility] Comment on above: Performed By: #### C BC #### [facility] [address] [address] [address] Ricky Valenzuela GLYCOHEMOGLOBIN A1Con 2021 ADA RECOMMENDATION SEE BELOW Normal [facility] [place] Comment on above: Result Comment: ADA RECOMMENDED LIMIT 4.0 - 6.0 ADA THERAPEUTIC TARGET < 7.0 ACTION SUGGESTED > 7.0 Performed By: #### A 1C ####[facility] [address] [place] [id number]. Ricky Valenzuela Glucose [Mass/Vol] 183 mg/dL Normal [facility] [place] Comment on above: Performed By: #### A 1C ####[facility] [address] [place] [phone]. Ricky Valenzuela HbA1c (Bld) [Mass fraction] 8.0 % Critically high 4.5-6.2 [facility] Comment on above: Performed By: #### A 1C ####[facility] [address] [place] [id number]. Ricky Valenzuela LIPID PROFILEon 08-09-2021 CHOL-HDL RATIO NORM SEE BELOW Normal [facility] Comment on above: Result Comment: 3.3 - 4.4 LOW RISK 4.4 - 7.1 AVERAGE RISK 7.1 - 11.0 MODERATE RISK >11.0 HIGH RISK Performed By: #### C MP, LIPID #### [facility] [address] [address] [address] Ricky Valenzuela Cholesterol [Mass/Vol] 239 mg/dL Critically high <=200 [facility] Comment on above: Performed By: #### C MP, LIPID #### [facility] [address] [address] [address] Ricky Valenzuela Cholesterol in HDL [Mass/Vol] 36 mg/dL Critically low 40-60 [facility] Comment on above: Performed By: #### C MP, LIPID #### [facility] [address] [address] [address] Ricky Valenzuela Cholesterol in LDL [Mass/Vol] 164.2 mg/dL Normal [facility] Comment on above: Performed By: #### C MP, LIPID #### [facility] [address] [address] [address] Ricky Valenzuela Cholesterol.total/Cho lesterol in HDL [Mass ratio] 6.6 {ratio} Normal [facility] Comment on above: Performed By: #### C MP, LIPID #### [facility] [address] [address] [address] Ricky Valenzuela HDL NORMAL > or = 60 mg/dl - LO W CARDIOVASCULAR RISK <40 mg/dl - HIGH CARDIOVASCULAR RISK Normal [facility] Comment on above: Performed By: #### C MP, LIPID #### [facility] [address] [address] [address] Ricky Valenzuela LDL CALC NORMAL SEE BELOW Normal [facility] Comment on above: Result Comment: <100 mg/dl OPTIMAL 100 - 129 mg/dl NEAR OR ABOVE OPTIMAL 130 - 159 mg/dl BORDERLINE HIGH 160 - 189 mg/dl HIGH >190 mg/dl VERY HIGH Performed By: #### C MP, LIPID #### [facility] [address] [address] [address] Ricky Valenzuela Triglyceride [Mass/Vol] 194 mg/dL Critically high <=150 [facility] Comment on above: Performed By: #### C MP, LIPID #### [facility] [address] [address] [address] Ricky Valenzuela VLDL CALC 38.8 mg/dL Normal [facility] Comment on above: Performed By: #### C MP, LIPID #### [facility] [address] [address] [address] Ricky Valenzuela MICROALBUMIN, RAND URon 07-13 mALB 13.1 mg/L Normal <=30.0 [facility] Comment on above: Performed By: #### M ALBR ####[facility] [address], [place] [address]ExDr. Ricky Valenzuela PROF 14(COMP METB)on 022 Albumin [Mass/Vol] 3.3 g/dL Critically low 3.4-5.0 [facility] Comment on above: Performed By: #### C MP, LIPID #### [facility] [address] [address] [address] Ricky Valenzuela Albumin/Globulin [Mass ratio] 0.8 {ratio} Normal [facility] Comment on above: Performed By: #### C MP, LIPID #### [facility] [address] [address] [address] Ricky Valenzuela ALP [Catalytic activity/Vol] 93 U/L Normal 46-116 [facility] Comment on above: Performed By: #### C MP, LIPID #### [facility] [address] [address] [address] Ricky Valenzuela ALT [Catalytic activity/Vol] 37 U/L Normal 14-59 [facility] Comment on above: Performed By: #### C MP, LIPID #### [facility] [address] [address] [address] Ricky Valenzuela Anion gap [Moles/Vol] 10.9 mmol/L Normal [facility] Comment on above: Performed By: #### C MP, LIPID #### [facility] [address] [address] [address] Ricky Valenzuela AST [Catalytic activity/Vol] 10 U/L Critically low 15-37 [facility] Comment on above: Performed By: #### C MP, LIPID #### [facility] [address] [address] [address] Ricky Valenzuela Bilirubin [Mass/Vol] 0.2 mg/dL Normal 0.2-1.0 [facility] Comment on above: Performed By: #### C MP, LIPID #### [facility] [address] [address] [address] Ricky Valenzuela Calcium [Mass/Vol] 9.0 mg/dL Normal 8.5-10.1 [facility] [place] Comment on above: Performed By: #### C MP, LIPID #### [facility] [address] [address] [address] Ricky Valenzuela Chloride [Moles/Vol] 100 mmol/L Normal 98-107 [facility] Comment on above: Performed By: #### C MP, LIPID #### [facility] [address] [address] [address] Ricky Valenzuela CO2 [Moles/Vol] 32.2 mmol/L Critically high 21.0-32.0 [facility] Comment on above: Performed By: #### C MP, LIPID #### [facility] [address] [place] [address] Dr. Ricky Valenzuela Creatinine [Mass/Vol] 0.95 mg/dL Normal 0.55-1.02 [facility] [facility] Comment on above: Performed By: #### C MP, LIPID #### [facility] [address] [address] [address] Ricky Valenzuela EGFR-AF CITIZEN [place] >60 Normal >=60 [facility] Comment on above: Performed By: #### C MP, LIPID #### [facility] [address] [place] [address] Dr. Ricky Valenzuela EGFR-NON AF CITIZEN OF [place] >60 Normal >=60 [facility] Comment on above: Performed By: #### C MP, LIPID #### [facility] [address] [address] [address] Ricky Valenzuela Globulin (S) [Mass/Vol] 4.2 g/dL Normal [facility] Comment on above: Performed By: #### C MP, LIPID #### [facility] [address] [address] [address] Ricky Valenzuela Glucose [Mass/Vol] 200 mg/dL Critically high 74-106 [facility] Comment on above: Performed By: #### C MP, LIPID #### [facility] [address] [address] [address] Ricky Valenzuela Potassium [Moles/Vol] 4.1 mmol/L Normal 3.5-5.1 [facility] Comment on above: Performed By: #### C MP, LIPID #### [facility] [address] [address] [address] Ricky Valenzuela Protein [Mass/Vol] 7.5 g/dL Normal 6.4-8.2 [facility] Comment on above: Performed By: #### C MP, LIPID #### [facility] [address] [address] [address] Ricky Valenzuela Sodium [Moles/Vol] 139 mmol/L Normal 136-145 [facility] [place] Comment on above: Performed By: #### C MP, LIPID #### [facility] [address] [place] [address] Dr. Ricky Valenzuela Urea nitrogen [Mass/Vol] 13.0 mg/dL Normal 7.0-18.0 [facility] Comment on above: Performed By: #### C MP, LIPID #### [facility] [address] [address] [address] Ricky Valenzuela Urea nitrogen/Creatinine [Mass ratio] 13.7 mg/mg Normal [facility] Comment on above: Performed By: #### C MP, LIPID #### [facility] [address] [address] [address] Ricky Valenzuela POINT OF CARE GLUCOSEon - Glucose [Mass/Vol] 176 mg/dL Critically high 74-106 [facility] Comment on above: Performed By: #### P OCGLUC #### [facility] [address] [address] [address] Ricky Valenzuela Vital Signs Date Time Vital Sign Value Performing Clinician Facility 01-18-2023 09:10-0500 Body height 156.21 cm Elle Hendricks Other [facility] Other 01-18-2023 09:10-0500 Body mass index (BMI) [Ratio] 42.82 kg/m2 Elle Ruthie Other [facility] Other 01-18-2023 09:10-0500 Body temperature 98.2 [degF] Elle Ruthie Other [facility] Other 01-18-2023 09:10-0500 Body weight 104.51 kg Elle Ruthie Other [facility] Other 01-18-2023 09:10-0500 Diastolic blood pressure 92 mm[Hg] Elle Ruthie Other [facility] Other 01-18-2023 09:10-0500 Respiratory rate 18 /min Elle Hendricks Other [facility] Other 01-18-2023 09:10-0500 SaO2% (BldA) [Mass fraction] 97 % Elle Hendricks Other [facility] Other 01-18-2023 09:10-0500 Systolic blood pressure 145 mm[Hg] Elle Ruthie Other [facility] Other Encounters Encounter Date Encounter Type Care Provider Facility Start: 07-04-2023 End: 07-04-2023 ambulatory SHAIKH MARICEL Not Available Start: 05-02-2023 End: 05-02-2023 ambulatory SHAIKH MARICEL Not Available Start: 04-30-2023 End: 04-30-2023 ambulatory [facility] Work Phone: Start: 04-30-2023 End: 04-30-2023 Patient encounter procedure [facility] [place] [facility] Work Phone: Start: 03-21-2023 Orders Only Shaikh Maricel HOLLIS Work Phone: [facility] Comment on above: Diabetic polyneuropa thy associated with type 2 diabetes mellitus (CMS/HCC) (Primary Dx) Start: 03-19-2023 End: 03-19-2023 ambulatory Ana Luisa Curtis Other [facility] Other Start: 03-19-2023 Office outpatient vi sit 15 minutes Ana Luisajesus Curtis [facility] [place] [facility] Start: 02-25-2023 End: 02-25-2023 ambulatory ELIDA GARCIA Not Available Start: 01-29-2023 End: 01-29-2023 ambulatory SHAIKH MARICEL Not Available Start: 01-23-2023 End: 01-23-2023 ambulatory Ana Luisa Curtis Other [facility] Other Start: 01-23-2023 Office outpatient vi sit 15 minutes Ana Luisajesus Curtis [facility] [place] [facility] Start: 01-18-2023 End: 01-18-2023 ambulatory Elle Hendricks Other [facility] Other Start: 01-18-2023 Office outpatient vi sit 15 minutes Elle Hendricks [facility] Start: 09-19-2022 End: 09-19-2022 ambulatory Ana Luisa Curtis Other [facility] Other Start: 09-19-2022 Telephone encounter Ana Luisa Curtis [facility] [place] [facility] Start: 07-12-[address] JONATHAN EDWARDS Facili ty:H1 Start: 06-07-2022 End: 06-08-[address] JONATHAN EDWARDS Facility:[facility] Start: 05-02-2022 End: 05-02-2022 ambulatory Ana Luisa Curtis Other [facility] Other Start: 05-02-2022 Office outpatient ne w 30 minutes Ana Luisa Curtis [facility] Start: 04-12-2022 End: 04-13-[address] JONATHAN EDWARDS Facility:[facility]1 Start: 03-08-2022 End: 03-09-[address] JONATHAN EDWARDS Facility:[facility] Start: 02-16-2022 End: 02-17-[address] JONATHAN EDWARDS Facility:[facility] Start: 02-09-2022 End: 02-10-[address] RICRADO HOLM . Facility:[facility] Start: 11-16-2021 End: 11-17-[address] JONATHAN EDWARDS Facility:[facility]1 Start: 11-01-2021 End: 11-02-2021 ambulatory CRYS PIERCE . Facility:[facility]1 Start: 08-30-2021 End: 08-31-2021 ambulatory NIKKIE BARCLAY [facility] Start: 08-30-2021 End: 08-30-2021 Subsequent hospital visit by physician Sr Edwards DO Work Phone: [facility] Comment on above: Routine cervical sme ar Start: 08-16-2021 Encounter for genera l adult medical examination without abnormal findings DR RICARDO HOLM . [facility] Start: 08-09-2021 End: 08-10-2021 Encounter for [...] [Identifier] in Cervix by Cyto stain Sr Edwards DO Work Phone: Plan of Treatment Date Care Activity Detail Author Start: 03-08-2026 Screening for malign ant neoplasm of colon [facility] Start: 08-30-2024 Screening for malign ant neoplasm of cervix [facility] Start: 03-20-2024 Screening for malign ant neoplasm of breast Mammogram [facility] Start: 02-27-2024 End: 02-27-2024 Patient encounter procedure 02/27/2024 11:35 AM EST Office Visit [facility] [address] [place] [id number] Elida Garcia MD [address] [place] [address] [facility] Start: 02-12-2024 Glaucoma screening Diabetes: R etinopathy Screening [facility] Start: 08-11-2023 Influenza vaccination Influenza Vacc ine (#1) [facility] Comment on above: Postponed from 10/12 (Patient Refused) Start: 05-02-2023 End: 05-02-2023 Patient encounter procedure 05/02/2023 2:00 PM EDT Office Visit [facility] [address] [place] [address] Shaikh Connelly MD [address] [place] [address] [facility] Start: 02-17-2023 Hemoglobin A1c measurement Diabetes: Hemoglobin A1C [facility] Start: 09-04-2022 End: 09-04-2022 Patient encounter procedure 09/04/2022 Office Visit Obstetrics and Gynecology Nikkie Barclay, [employer] [facility] [address] [facility] [address] [place] [address] [facility] Part of [facility] Start: 10-12-2021 Influenza vaccination Flu vaccine (# 1) [facility] Start: 10-21-2013 Screening for malign ant neoplasm of breast Breast cancer screen [facility] Start: 10-21-2013 Shingles vaccine (1 of 2) Shingles vaccine (1 of 2) [facility] Start: 10-21-2008 Screening for malign ant neoplasm of colon [facility] Start: 2003 Lipid panel [facility] Start: 10-21-1998 Diabetes screen Diabetes screen [facility] Start: 10-21-1993 Screening for malign ant neoplasm of cervix [facility] [employer] [facility] Start: 10-21-1982 DTaP/Tdap/Td vaccine (1 - Tdap) DTaP/Tdap/Td vaccine (1 - Tdap) [facility] Start: 10-21-1982 Urine screening for protein Diabetes: Urine Protein Screening [facility] Start: 10-21-1981 Hepatitis C screening Hepatitis C sc reen [facility] Start: 10-21-1978 HIV screening HIV screen [facility] Start: 1975 Depression Screen Depression Screen [facility] [employer] [facility] Start: 04-20-1964 COVID-19 Vaccine (#1) COVID-19 Vacci ne (#1) [facility] Start: 1965 Screening for malign ant neoplasm of colon [facility] End: 08-30-2021 Cytopathology procedure, preparation of smear, genital source [facility] Routine Routine cervical smear 1 Occurrences starting 08/30/2021 until 08/30/2021 [facility]: Comment on above: 1 Occurrences starti ng 08/30/2021 until 08/30/2021 Immunizations Immunization Date Immunization Notes Care Provider Tima garcia 01-14-2017 influenza, injectabl e, quadrivalent, preservative free [facility] Payers Date Payer Category Payer Unknown [employer] [id number] 2022-Present [phone] [address] [address] [place] [address] [id number] 2012 Medicare MEDICARE MEDICAR E PART B [id number] 2012-[place] [address] Medicare [id number]. [id number] 1963 Unknown [id number] 2.16.840.1.999374.3.579.2.17 3 1963 Unknown [id number] 2.16.840.1.038678.3.579.2.59 3 1963 Unknown [id number] 2.16.840.1.327272.3.579.2.59 3 1963 Unknown [id number] 2.16.840.1.603330.3.579.2.59 3 1963 Unknown [id number] 2.16.840.1.872268.3.579.2.59 3 1963 Unknown [id number] 2.16.840.1.902511.3.579.2.59 3 1963 Unknown [id number] 2.16.840.1.297112.3.579.2.59 3 1963 Unknown [id number] 2.16.840.1.904874.3.579.2.59 3 1963 Unknown [id number] 2.16.840.1.038178.3.579.2.59 3 1963 Unknown [id number] 2.16.840.1.568869.3.579.2.59 3 1963 Unknown [id number] 2.16.840.1.348238.3.579.2.59 3 1963 Unknown [id number] 2.16.840.1.601222.3.579.2.59 3 1963 Unknown [id number] 2.16.840.1.468125.3.579.2.59 3 1963 Unknown [id number] 2.16.840.1.396090.3.579.2.59 3 1963 Unknown [id number] 2.16.840.1.002577.3.579.2.59 3 1963 Unknown [id number] 2.16.840.1.137747.3.579.2.59 3 1963 Unknown [id number] 2.16.840.1.136235.3.579.2.59 3 1963 Unknown [id number] 2.16.840.1.475128.3.579.2.12 59 1963 Unknown [id number] 2.16.840.1.390809.3.579.2.12 59 1963 Unknown [id number] 2.16.840.1.254346.3.579.2.12 59 1963 Unknown [id number] 2.16.840.1.848691.3.579.2.12 59 1959 Medicare [id number] 1.2.840.431746.1.13.239.2.7. 3.356273.315 1959 Unknown [id number] 1.2.840.364248.1.13.239.2.7. 3.905181.315 1959 Unknown [id number] 2.16.840.1.671601.19 Medicare Medicare [id number] Self-pay Self Pay [id number] Social History Date Type Detail Facility Start: 08-30-2021 Tobacco smoking stat [facility] Smokes tobacco daily [employer] Phone: History of tobacco use Cigarette Smoker B [facility] Phone: Start: 08-30-2021 End: 01-29-2023 Tobacco use and exposure Smokeless tobacco non-user [employer] Phone: Start: 08-30-2021 Alcohol intake Current drinke r of alcohol (finding) [employer] Phone: Start: 08-30-2021 History SDOH Alcohol Comment occasional [facility] Phone: Start: 1965 Sex Assigned At Not on file B ON [facility] Phone: Start: 08-20-2021 End: 08-30-2021 Exposure to SARS-CoV-2 (event) Not sure [facility] Start: 02-25-2023 Sex [address]igned [address] N [facility] [employer] Other Start: 01-23-2023 End: 01-29-2023 Tobacco smoking status [facility] Ex-smoker [facility] History of tobacco use Current smoker [facility] Start: 01-29-2023 End: 02-25-2023 Cigarettes smoked current (pack per day) - Reported 0.5 [facility] Start: 02-25-2023 Alcohol intake Lifetime non-d gus (finding) [facility] Start: 1965 Sex Assigned At Female F [facility] Medical Equipment Procedure Code Equipment Code Equipment Origin al Text Equipment Identifier Dates USE TO TEST BLOO D SUGAR TWICE DAILY [id number] Start: 06-08-2021 Clinical Notes 06-20-2021 to 03-19-2023 [...] Mar, Left hand pain (ICD-10 - M79.642) [facility] [employer] Other 12-13-2023 Evaluation note* Encounter Date Diagnosis [...] noted. Patient will f/u in 4 weeks. [facility] Other 12-08-2023 Evaluation note* Encounter Date Diagnosis [...] left hand x-ray that was performed at [facility] which revealed degenerative changes in the hand as well as a remote avulsion fracture of the thumb. Patient states her family doctor is treating her for gout in her hand. Jan, History of gout (ICD-10 - Z87.39) Jan, Other Gout material w as printed co[facility] Other 08-09-2023 Evaluation note* Encounter Date Diagnosis Assessment Notes Treatment Notes Treatment Clinical Notes Sep, Right wrist pain (ICD-10 - M25.531) [facility] Other 04-27-2023 NoteCONSULTATION CONSULTATION DATE: 06/07/2022 TO: [...] our patients to inform us about any [id number] medications or herbal remedies/nutritional supplements/alternative remedies. 2. [...] treatment options with their primary care provider.[id number] Evaluation note * Encounter Date Diagnosis Assessment [...] understanding and is agreeable to treatment plan. [facility] Other 01-26-2023 NoteCONSULTATION PROCEDURE DATE: 03/08/2022 PREOPERATIVE [...] will be followed up in the clinic.[facility] [id number] NotePROCEDURE: XR KNEE LT 4V or > [...] Electronically authenticated by: PATTIE SALTER Date: 2022-02-16 11:29[facility]12-30-2022 NoteCONSULTATION CONSULTATION DATE: 02/09/2022 HISTORY OF [...] office today. Patient agrees with this plan.[facility] [id number] NotePROCEDURE: XR WRIST RT MIN 3 V COMPARISON: None. HISTORY: Injury of right wrist FINDINGS: BONES:No acute fracture or dislocation. Corticated bone fragment identified along the first carpometacarpal joint [degenerative in nature SOFT TISSUES:Moderate diffuse soft tissue swelling EFFUSION:None visible. OTHER: Negative. IMPRESSION: Soft tissue swelling, no acute fracture Electronically authenticated by: RYAN GOLDMAN Date: 2021-11-16 18:59[facility] [id number] NoteCONSULTATION CONSULTATION DATE: 11/01/2021 HISTORY OF PRESENT [...] otherwise indicated. Patient agrees with this plan.[facility] [id number] NoteCONSULTATION PROCEDURE DATE: 11/01/2021 PRE AND POSTOPERATIVE [...] will be followed up in the clinic.[facility] [id number] NoteCONSULTATION PROCEDURE DATE: 08/09/2021 PREOPERATIVE DIAGNOSIS: Bilateral [...] will be followed up in the clinic. [facility] Signed and Approved by: CRYS PIERCE . 08/10/2021 13:37:00[facility] [id number] NoteCONSULTATION CONSULTATION DATE: 07/19/2021 HISTORY OF PRESENT [...] injections. Patient acknowledges and all questions answered. [facility] Signed and Approved by: CRYS PIERCE . 07/20/2021 10:33:00[facility]05-25-2022 NotePROCEDURE: XR FOOT RT MIN 3 [...] Electronically authenticated by: PATTIE SALTER Date: 2021-07-05 11:11[facility]05-10-2022 NoteCONSULTATION CONSULTATION DATE: 06/20/2021 CHIEF COMPLAINT: [...] like to proceed. CC: Jonathan Edwards M.D. [facility] Signed and Approved by: DR RICARDO HOLM . 06/27/2021 10:40:00[facility]* Diagnosis Routine cervical smear Screening for malignant neoplasm of the cervix documented in this encounter [facility] Phone: evaluation note* Diagnosis Diabetic polyneuropathy associated with type 2 diabetes mellitus (CMS/HCC)- Primary documented in this encounter [facility] noteNo assessment information availableC[facility] Work Phone: History general Narrative - Reported* Type Description Date Medical History GERD (gastroesophageal reflux di sease) Medical History Migraine headache Medical History Arthritis Medical History Edema of both legs Medical History Diabetes mellitus, type 2 Medical History Chronic back pain Surgical History ablasion Surgical History back surgery Surgical History hysterectomy Surgical History tubal ligation Hospitalization History see above coComment Other Summary Purpose Family History No Family [...] Care Teams (unrecognized sec tion and content) Health Educator Relationship Specialty Start Date End Date Sr Jonathan Edwards, [address] [place] [address] PCP - General Family Medicine 08/30/21 Health Educator Relationship Specialty Start Date End Date Shaikh [...] and content) DATE CREATED AUTHOR 09/10/2021 [facility] DATE CREATED AUTHOR AUTHOR'S ORGANIZ ATION 06/08/2022 [facility] DATE CREATED AUTHOR AUTHOR'S ORGANIZ ATION 07/06/2023 [facility] EPIC REASON FOR VISIT (unrecogniz [...] BE BASED ON THE PRIMARY CLINICAL RECORDS. [employer] [facility]. provides no warranty or guarantee of the accuracy or completeness of information in this document.
[2023-07-27 09:06] LABS: Creatinine Urine Random 52.95 mg/dL (20.00-300.00); Microalbum Creatinine Ratio Ur 71.7 mg/g (0.0-29.9); Microalbumin Urine Random 3.8 mg/dL (<=30.0)
[2023-07-27 09:06] LABS: Estimated Average Glucose 134 mg/dL; Glycohemoglobin A1C 6.3 % (4.5-6.2)
[2023-07-27 09:34] LABS: Alanine Aminotransferase 20 U/L (14-59); Albumin Globulin Ratio 0.7; Alkaline Phosphatase 89 U/L (46-116); Anion Gap 14.1; Aspartate Amino Transferase 16 U/L (15-37); BUN Creatinine Ratio 26.6; Bilirubin Total 0.2 mg/dL (0.2-1.0); Calcium 10.2 mg/dL (8.5-10.1); Carbon Dioxide 29.5 mmol/L (21.0-32.0); Chloride 104 mmol/L (98-107); Estimated GFR (African America >60 (>=60); Estimated GFR (Non-African Ame >60 (>=60); Globulin 4.2 g/dL; Glucose 120 mg/dL (74-106); Potassium 4.6 mmol/L (3.5-5.1); Sodium 143 mmol/L (136-145); Total Protein 7.2 g/dL (6.4-8.2)
== END 2023-07-27 08:17 | disposition home or self-care (01) ==
LOC: LAB 08:17
PROVIDERS: PCP Internal Medicine; Visit Provider Internal Medicine
DX: E11.9 Type 2 diabetes mellitus without complications (principal)
CPT/HCPCS: 36415; 80053; 82043; 82570; 83036

== ENCOUNTER 2023-08-13 14:03 | Outpatient (OUT) | payer OTHER, MEDICARE, SELFPAY ==
--- NOTE | 2023-08-13 | XR_ITS ---
The [address] [address] Patient Name: KARINA DE OLIVEIRA MRN: [id number] date: 1965 Sex: F Assigned Patient Location: Current Patient Location: Accession/Order Number: [id number] Exam Date: 08/13/2023 14:05 Report Date: 08/14/2023 15:30 At the request of: SUSSY JONES Procedure: XR foot LT min 3V PROCEDURE: XR foot LT min 3V HISTORY: LEFT FOOT PAIN COMPARISON: XR foot left 07/24/2023 FINDINGS: BONES:Prior mechanical fusion the first tarsal metatarsal joint. Prior nondisplaced fracture of second metatarsal mid diaphysis with minimal increased density at fracture line. No appreciable callus formation along the margins. Stable nondisplaced fracture through base of 5th metatarsal; minimally increased density. SOFT TISSUES:No visible soft tissue swelling. EFFUSION:None visible. OTHER: Negative. XR/XR foot LT min 3V IMPRESSION: 1. Stable surgical changes without evidence of hardware failure or change in alignment. 2. Stable normal alignment is maintained of the second and 5th metatarsal fractures with mild changes of early bone healing. Electronically authenticated by: PATTIE SALTER Date: 08/14/2023 15:30
--- NOTE | 2023-08-13 | XR_ITS ---
The [address] [id number] Patient Name: KARINA DE OLIVEIRA MRN: [id number] date: 1965 Sex: F Assigned Patient Location: Current Patient Location: Accession/Order Number: [id number] Exam Date: 08/13/2023 14:05 Report Date: 08/14/2023 15:27 At the request of: SUSSY JONES Procedure: XR tibia fibula LT 2V PROCEDURE: XR tibia fibula LT 2V HISTORY: LEFT LOWER LEG PAIN COMPARISON: XR tibia fibula left 06/08/2023 FINDINGS: BONES:Prior fracture of fibula at the proximal diametaphyseal junction. Minimal displacement with mild early callus formation. SOFT TISSUES:No visible soft tissue swelling. EFFUSION:None visible. OTHER: Negative. XR/XR tibia fibula LT 2V IMPRESSION: 1. Subacute proximal fibular fracture with stable alignment and slightly increased density compatible with changes of early bone healing. Electronically authenticated by: PATTIE SALTER Date: 08/14/2023 15:27
--- OUTSIDE RECORDS SUMMARY | 2023-08-13 14:13 | XMS_ITS ---
Patient Summarization (C-CDA 2.1 CCD) Created on: August 13, 2023 KARINA DE OLIVEIRA : 1965 Sex: Female Author Organization Sample organization Care Team Providers Care Microelectronics Engineer Name Role Phone House DO, Sr Jonathan Klein Primary Care Provider [phone] BARCLAY NIKKIEELIEL SNOWDEN Referring Unavailabl e HOUSE, SR JONATHAN Klein [...] Unavailable KAREN, SUSSY Dos Santos Attending Unavailable HOUSE, DR BASURTO Primary Care Unavailable GAETANO, DR PATTIE Nieves Consulting Unavailable HIGHLANDER, SUSSY Dos Santos Consulting Unavailable HOUSE, DR BASURTO Attending Unavailable HOUSE, DR BASURTO Primary Care Unavailable HOUSE, DR BASURTO Admitting Unavailable HOUSE, DR BASURTO Consulting Unavailable HOUSE, DR BASURTO Primary Care Unavailable ZIEBER, DR PATTIE Nieves Consulting Unavailable LAKSHMIPATHY ., NARENDRANATH Admitting Nellie vailable LAKSHMIPATHY ., NARENDRANATH Attending Nellie vailable LAKSHMIPATHY ., DEMETRIUSATH Consulting Nellie vailable HOUSE, DR BASURTO Admitting Unavailable HOUSE, DR BASURTO Attending Unavailable HOUSE, DR BASURTO Primary Care Unavailable GREENFIELD, DR RYAN Guzman Consulting Unavailable HOUSE, DR [...] ., CRYS Consulting Unavailable PIERCE ., CRYS Consulting Unavailable HOUSE, [...] GARCIA Attending Unavailable SHAIKH CONNELLY Attending Unavailable EUFEMIAWANAMIKA, Attending Unavailable FAWANAMIKA, Attending Unavailable FAWANAMIKA, Attending Unavailable Encounters Encounter Date Encounter Type Care Provider Facility Start: 08-05-2023 End: 08-05-2023 ambulatory CRISTINA FAWWAD Not Available Start: 07-04-2023 End: 07-04-2023 ambulatory CRISTINA FAWWAD Not Available Start: 05-02-2023 End: 05-02-2023 ambulatory CRISTINA FAWWAD Not Available Start: 04-30-2023 End: 04-30-2023 ambulatory [facility] Work Phone: Start: 04-30-2023 End: 04-30-2023 Patient encounter procedure [facility] Work Phone: Start: 03-21-2023 Orders Only Shaikh Maricel HOLLIS Work Phone: [facility] Comment on above: Diabetic polyneuropa thy associated with type 2 diabetes mellitus (CMS/HCC) (Primary Dx) Start: 03-19-2023 End: 03-19-2023 ambulatory Ana Luisa Curtis Other [facility] Other Start: 03-19-2023 Office outpatient vi sit 15 minutes Ana Luisa Curtis [facility] Start: 02-25-2023 End: 02-25-2023 ambulatory ELIDA GARCIA Not Available Start: 01-29-2023 End: 01-29-2023 ambulatory SHAIKH MARICEL Not Available Start: 01-23-2023 End: 01-23-2023 ambulatory Ana Luisa Curtis Other [facility] Other Start: 01-23-2023 Office outpatient vi sit 15 minutes Ana Luisa Curtis [facility] Start: 01-18-2023 End: 01-18-2023 ambulatory Elle Hendricks Other [facility] Other Start: 01-18-2023 Office outpatient vi sit 15 minutes Elle Hendricks [facility] Start: 09-19-2022 End: 09-19-2022 ambulatory Ana Luisa Curtis Other [facility] Other Start: 09-19-2022 Telephone encounter Ana Luisa Curtis [facility] Start: 07-12-[address] JONATHAN EDWARDS Facili ty:H1 Start: 06-07-2022 End: 06-08-[address] JONATHAN EDWARDS Facility:[facility]1 Start: 05-02-2022 End: 05-02-2022 ambulatory Ana Luisa Curtis Other [facility] Other Start: 05-02-2022 Office outpatient ne w 30 minutes Ana Luisa [facility]osteve [facility] Start: 04-12-2022 End: 04-13-[address] JONATHAN EDWARDS Facility:[facility]1 Start: 03-08-2022 End: 03-09-[address] JONATHAN EDWARDS Facility:[facility]1 Start: 02-16-2022 End: 02-17-[address] JONATHAN EDWARDS Facility:[facility] Start: 02-09-2022 End: 02-10-[address] RICARDO HOLM . Facility:[facility]1 Start: 11-16-2021 End: 11-17-[address] JONATHAN EDWARDS Facility:[facility]1 Start: 11-01-2021 End: 11-02-2021 ambulatory CRYS PIERCE . Facility:[facility]1 Start: 08-30-2021 End: 08-31-2021 ambulatory NIKKIE BARCLAY [facility] Start: 08-30-2021 End: 08-30-2021 Subsequent hospital visit by physician Sr Edwards DO Work Phone: [facility] Laboratory Comment on above: Routine cervical sme ar Start: 08-16-2021 Encounter for genera l adult medical examination without abnormal findings DR RICARDO HOLM . [facility] Start: 08-09-2021 End: 08-10-2021 Encounter for general [...] 06-21-[address] RICARDO HOLM . Facility:[facility]1 Medical Equipment Procedure Code Equipment Code Equipment Origin al Text Equipment Identifier Dates USE TO TEST BLOO D SUGAR TWICE DAILY [id number] Start: 06-08-2021 Immunizations Immunization Date Immunization Notes Care Provider Eufemia garcia 01-14-2017 influenza, injectabl e, quadrivalent, preservative free [facility] Medications Current Medications Medication Drug Class(es) Dates [...] mg/ml medicated liquid soap (1 source) Start: chlorhexidine (Hibiclens) 4 % external liquid Indications: [...] during flares, 30 day supply 60 mL 02/25/2023 Active colchicine 0.6 mg oral tablet [...] mg oral capsule (10 sources) Start: 03-21-19 24 End: 06-19-19 take 1 capsule by mouth [...] a day Active take 1 capsule by [facility] twice daily pregabalin (LYRICA) 50 MG capsule [...] MG/3ML solution pen-injector (1 source) Start: 01-30-20 End: 04-29-19 24 inject 1 mg by subcutaneous injection every week semaglutide (Ozempic, 1 MG/DOSE,) 4 MG/3ML solution pen-injector Indications: Type 2 diabetes mellitus without complication, without long-term current use of insulin ([facility]) Inject 1 mg under the skin 1 [...] 12, 2017 1:00am January 15, 2017 2:23pm Yswwgabyugtq-Dk-Gxd n-Minerals (Multiple Vitamin, Womens) Tablet (1 source) Start: 01-12-2017 End: 01-15-2017 Kftyxhtbgsee-Xd-Hj on-Minerals (Multiple Vitamin, Womens) Tablet Discontinued PO Daily January 12, 2017 1:00am January 15, 2017 2:23pm triamcinolone acetonide 40 mg/ml injectable suspension (3 sources) Corticosteroid Start: 03-19-2023 Kenalog-40 Mar, 20 mg Start: 01-23-2023 Kenalog-40 Jan, 30 mg Payers Date Payer Category Payer Unknown [employer] [id number] 2022-Present [phone] [address] [address] [place] [address] [id number] 2012 Medicare MEDICARE MEDICAR E PART B [id number] 2012-Present [address] [address] [place] [address] Medicare [id number] 1965 Unknown [id number] 2.16.840.1.963951.3.579.2.17 3 1965 Unknown [id number] 2.16.840.1.179366.3.579.2.59 3 1965 Unknown [id number] 2.16.840.1.199713.3.579.2.59 3 1965 Unknown [id number] 2.16.840.1.574874.3.579.2.59 3 1965 Unknown [id number] 2.16.840.1.468767.3.579.2.59 3 1965 Unknown [id number] 2.16.840.1.448419.3.579.2.59 3 1965 Unknown [id number] 2.16.840.1.008259.3.579.2.59 3 1965 Unknown [id number] 2.16.840.1.392180.3.579.2.59 3 1965 Unknown [id number] 2.16.840.1.491157.3.579.2.59 3 1965 Unknown [id number] 2.16.840.1.188827.3.579.2.59 3 1965 Unknown [id number] 2.16.840.1.489797.3.579.2.59 3 1965 Unknown [id number] 2.16.840.1.848179.3.579.2.59 3 1965 Unknown [id number] 2.16.840.1.213753.3.579.2.59 3 1965 Unknown [id number] 2.16.840.1.505023.3.579.2.59 3 1965 Unknown [id number] 2.16.840.1.737506.3.579.2.59 3 1965 Unknown [id number] 2.16.840.1.833915.3.579.2.59 3 1965 Unknown [id number] 2.16.840.1.302048.3.579.2.59 3 1965 Unknown [id number] 2.16.840.1.783071.3.579.2.12 59 1965 Unknown [id number] 2.16.840.1.513505.3.579.2.12 59 1965 Unknown [id number] 2.16.840.1.243517.3.579.2.12 59 1965 Unknown [id number] 2.16.840.1.520798.3.579.2.12 59 1965 Unknown [id number] 2.16.840.1.021802.3.579.2.12 59 1961 Medicare [id number] 1.2.840.001668.1.13.239.2.7. 3.392913.315 1959 Unknown [id number] 1.2.840.746691.1.13.239.2.7. 3.271151.315 1959 Unknown [id number] 2.16.840.1.779422.19 Medicare Medicare [id number] Self-pay Self Pay [id number] Plan of Treatment Date Care Activity Detail Author Start: 03-08-2026 Screening for malign ant neoplasm of colon [facility] Start: 08-30-2024 Screening for malign ant neoplasm of cervix [facility] Start: 03-20-2024 Screening for malign ant neoplasm of breast Mammogram [facility] Start: 02-27-2024 End: 02-27-2024 Patient encounter procedure 02/27/2024 11:35 AM EST Office Visit [facility] [address] [place] [id number] Elida Garcia MD [address] [place] [address] [facility] Start: 02-12-2024 Glaucoma screening Diabetes: R etinopathy Screening [facility] Start: 08-11-2023 Influenza vaccination Influenza Vacc ine (#1) [facility] Comment on above: Postponed from 10/12 (Patient Refused) Start: 05-02-2023 End: 05-02-2023 Patient encounter procedure 05/02/2023 2:00 PM EDT Office Visit [facility] [address] [place] [address] Shaikh Connelly MD [address] [place] [address] [facility] Start: 02-17-2023 Hemoglobin A1c measurement Diabetes: Hemoglobin A1C [facility] Start: 09-04-2022 End: 09-04-2022 Patient encounter procedure 09/04/2022 Office Visit Obstetrics and Gynecology Nikkie Barclay, GROUND OPERATIONS SUPERVISOR - CNM [address] [place] [address] [facility] Start: 10-12-2021 Influenza vaccination Flu vaccine (# 1) [facility] Start: 10-21-2013 Screening for malign ant neoplasm of breast Breast cancer screen [facility] Start: 10-21-2013 Shingles vaccine (1 of 2) Shingles vaccine (1 of 2) [facility] Start: 10-21-2008 Screening for malign ant neoplasm of colon [facility] Start: 2003 Lipid panel Lipids [facility] Start: 10-21-1998 Diabetes screen Diabetes screen [facility] Start: 10-21-1993 Screening for malign ant neoplasm of cervix [facility] Start: 10-21-1982 DTaP/Tdap/Td vaccine (1 - Tdap) DTaP/Tdap/Td vaccine (1 - Tdap) [facility] Start: 10-21-1982 Urine screening for protein Diabetes: Urine Protein Screening [facility] Start: 10-21-1981 Hepatitis C screening Hepatitis C sc reen [facility] Start: 10-21-1978 HIV screening HIV screen [facility] Start: 1975 Depression Screen Depression Screen [facility] Start: 04-20-1964 COVID-19 Vaccine (#1) COVID-19 Vacci ne (#1) [facility] Start: 1965 Screening for malign ant neoplasm of colon [facility] End: 08-30-2021 Cytopathology procedure, preparation of smear, genital source [facility] Routine Routine cervical smear 1 Occurrences starting 08/30/2021 until 08/30/2021 [facility] Work Phone: Comment on above: 1 Occurrences starti ng 08/30/2021 until 08/30/2021 Problems Active Problems Problem Classification Problem Date [...] Translations: [LOW BACK PAIN, UNSPECIFIED] Onset: 06-20-2021 Procedures Date Procedure Procedure Detail Performing Clinician Start: 03-20-2023 Mammography Shaikh Marie calero MD Work Phone: Start: 08-30-2021 Microscopic observat ion [Identifier] in Cervix by Cyto stain [facility] Work Phone: Results Test Name Value Interpretation Reference Range [...] PATTIE SALTER Date: 2022-06-07 11:15 Normal [facility] CBC AUTO DIFFon 04-12-2022 BASO # 0.1 103/ul Normal 0.0-0.1 [facility] Comment on above: Performed By: #### C BC ####[facility] [address] [place] [address]Dr. Ricky Valenzuela Basophils/100 WBC (Bld) 0.5 % Normal 0.2-2.0 [facility] Comment on above: Performed By: #### C BC ####[facility] [address] [place], [place] [address]Dr. Ricky Valenzuela EO # 0.3 103/ul Normal 0.0-0.7 [facility] Comment on above: Performed By: #### C BC ####[facility] [address] [place] [address]Dr. Ricky Valenzuela Eosinophils/100 WBC (Bld) 3.0 % Normal 0.9-7.0 [facility] Comment on above: Performed By: #### C BC ####[facility] [address] [place] [address]Dr. Ricky Valenzuela Erythrocyte distribution width (RBC) [Ratio] 14.8 % Normal 11.0-15.0 [facility] Comment on above: Performed By: #### C BC ####[facility] [address] [place], [place] [address]Dr. Ricky Valenzuela Hematocrit (Bld) [Volume fraction] 40.6 % Normal 36.0-48.0 [facility] Comment on above: Performed By: #### C BC ####[facility] [address] [place] [id number]. Ricky Valenzuela Hemoglobin (Bld) [Mass/Vol] 13.5 g/dL Normal 12.0-16.0 [facility] Comment on above: Performed By: #### C BC ####[facility] [address] [place] [id number]. Ricky Valenzuela IG # 0.16 10e3/ul Critically high 0.00-0.03 [facility] Comment on above: Performed By: #### C BC ####[facility] [address] [place] [address]Dr. Ricky Valenzuela IG % 1.4 % Critically high 0.0-0.5 [facility] Comment on above: Performed By: #### C BC ####[facility] [address] [place] [address]Dr. Ricky Valenzuela LYMPH # 3.4 103/ul Normal 1.2-3.8 [facility] Comment on above: Performed By: #### C BC ####[facility] [address] [place] [address]Dr. Ricky Valenzuela Lymphocytes/100 WBC (Bld) 30.4 % Normal 20.5-60.0 [facility] Comment on above: Performed By: #### C BC ####[facility] [address] [place] [id number]. Ricky Valenzuela MANUAL DIFF REQ NO Normal [facility] Comment on above: Performed By: #### C BC ####[facility] [address] [place] [id number]. Ricky Valenzuela MCH (RBC) [Entitic mass] 31.8 pg Normal 26.7-34.0 [facility] Comment on above: Performed By: #### C BC ####[facility] [address] [place] [address]Dr. Ricky Valenzuela MCHC (RBC) [Mass/Vol] 33.3 g/dL Normal 29.9-35.2 [facility] Comment on above: Performed By: #### C BC ####[facility] [address] [place] [id number]. Ricky Valenzuela MCV (RBC) [Entitic vol] 95.5 fL Normal 81.0-99.0 [facility] Comment on above: Performed By: #### C BC ####[facility] [address] [place] [address]Dr. Ricky Valenzuela MONO # 0.9 103/ul Critically high 0.3-0.8 [facility] Comment on above: Performed By: #### C BC ####[facility] [address] [place] [id number]. Ricky Valenzuela Monocytes/100 WBC (Bld) 7.7 % Normal 1.7-12.0 [facility] Comment on above: Performed By: #### C BC ####[facility] [address] [place], [place] [address]Dr. Ricky Valenzuela NEUT # 6.3 103/ul Normal 1.4-6.5 [facility] Comment on above: Performed By: #### C BC ####[facility] [address] [place], [place] [address]Dr. Ricky Valenzuela Neutrophils/100 WBC (Bld) 57.0 % Normal 43.0-75.0 [facility] Comment on above: Performed By: #### C BC ####[facility] [address] [place], [place] [address]Dr. Ricky Valenzuela Platelet mean volume (Bld) [Entitic vol] 9.8 fL Normal 9.5-13.5 [facility] Comment on above: Performed By: #### C BC ####[facility] [address] [place] [id number]. Ricky Nicolas PLT 246 103/ul Normal 150-450 [facility] Comment on above: Performed By: #### C BC ####[facility] [address] [place], [place] [address]Dr. Ricky Nicolas RBC 4.25 106/ul Normal 4.20-5.40 [facility] Comment on above: Performed By: #### C BC ####[facility] [address] [place], [place] [address]Dr. Ricky Valenzuela WBC 11.1 103/ul Critically high 4.0-11.0 [facility] Comment on above: Performed By: #### C BC ####[facility] [address] [place] [address]DrPasquale Valenzuela GLYCOHEMOGLOBIN A1Con 2022 ADA RECOMMENDATION SEE BELOW Normal [facility] Comment on above: Result Comment: ADA RECOMMENDED LIMIT 4.0 - 6.0 ADA THERAPEUTIC TARGET < 7.0 ACTION SUGGESTED > 7.0 Performed By: #### A 1C ####[facility] [address] [place] [address]DrPasquale Valenzuela Glucose [Mass/Vol] 160 mg/dL Normal [facility] Comment on above: Performed By: #### A 1C ####[facility] [address] [place] [address]DrPasquale Valenzuela HbA1c (Bld) [Mass fraction] 7.2 % Critically high 4.5-6.[address] [facility] Comment on above: Performed By: #### A 1C ####[facility] [address] [place] [address]DrPasquale Valenzuela MICROALBUMIN, RAND URon mALB <1.3 Normal <=30.[address] [facility] Comment on above: Performed By: #### M ALBR #### [facility] [address] [address] [address] Ricky Valenzuela PROF 14(COMP METB)on 023 Albumin [Mass/Vol] 3.3 g/dL Critically low 3.4-5.0 Th [facility] Comment on above: Performed By: #### C MP #### [facility] [address] [address] [address] Ricky Valenzuela Albumin/Globulin [Mass ratio] 0.9 {ratio} Normal [facility] Comment on above: Performed By: #### C MP #### [facility] [address] [address] [address] Ricky Valenzuela ALP [Catalytic activity/Vol] 90 U/L Normal 46-[address] [facility] Comment on above: Performed By: #### C MP #### [facility] [address] [address] [address] Ricky Valenzuela ALT [Catalytic activity/Vol] 42 U/L Normal 14-[address] [facility] Comment on above: Performed By: #### C MP #### [facility] [address] [address] [address] Ricky Valenzuela Anion gap [Moles/Vol] 10.1 mmol/L Normal Th [facility] Comment on above: Performed By: #### C MP #### [facility] [address] [address] [address] Ricky Valenzuela AST [Catalytic activity/Vol] 21 U/L Normal 15-[address] [facility] Comment on above: Performed By: #### C MP #### [facility] [address] [place] [address] Dr. Ricky Valenzuela Bilirubin [Mass/Vol] 0.3 mg/dL Normal 0.2-1.[address] [facility] Comment on above: Performed By: #### C MP #### [facility] [address] [address] [address] Ricky Valenzuela Calcium [Mass/Vol] 9.8 mg/dL Normal 8.5-10.1 [facility] Comment on above: Performed By: #### C MP #### [facility] [address] [address] [address] Ricky Valenzuela Chloride [Moles/Vol] 99 mmol/L Normal 98-[address] [facility] Comment on above: Performed By: #### C MP #### [facility] [address] [address] [address] Ricky Valenzuela CO2 [Moles/Vol] 33.7 mmol/L Critically high 21.0-32.[address] [facility] Comment on above: Performed By: #### C MP #### [facility] [address] [address] [address] Ricky Valenzuela Creatinine [Mass/Vol] 0.94 mg/dL Normal 0.55-1.[address] [facility] Comment on above: Performed By: #### C MP #### [facility] [address] [address] [address] Ricky Valenzuela EGFR-AF SOUTH KOREAN >60 Normal >=60 [facility] Comment on above: Performed By: #### C MP #### [facility] [address] [address] [address] Ricky Valenzuela EGFR-NON AF [place]OUTH [place]OREAN >60 Normal >=[address] [facility] Comment on above: Performed By: #### C MP #### [facility] [address] [address] [address] Ricky Valenzuela Globulin (S) [Mass/Vol] 3.8 g/dL Normal [facility] Comment on above: Performed By: #### C MP #### [facility] [address] [place] [address] Dr. Ricky Valenzuela Glucose [Mass/Vol] 168 mg/dL Critically high 74-106 [facility] Comment on above: Performed By: #### C MP #### [facility] [address] [address] [address] Ricky Valenzuela Potassium [Moles/Vol] 4.8 mmol/L Normal 3.5-5.[address] [facility] Comment on above: Performed By: #### C MP #### [facility] [address] [place] [address] Dr. Ricky Valenzuela Protein [Mass/Vol] 7.1 g/dL Normal 6.4-8.2 [facility] Comment on above: Performed By: #### C MP #### [facility] [address] [address] [address] Ricky Valenzuela Sodium [Moles/Vol] 138 mmol/L Normal 136-145 [facility] Comment on above: Performed By: #### C MP #### [facility] [address] [address] [address] Ricky Valenzuela Urea nitrogen [Mass/Vol] 22.0 mg/dL Critically high 7.0-18.[address] [facility] Comment on above: Performed By: #### C MP #### [facility] [address] [address] [address] Ricky Valenzuela Urea nitrogen/Creatinine [Mass ratio] 23.4 mg/mg Normal [facility] Comment on above: Performed By: #### C MP #### [facility] [address] [place] [address] Dr. Ricky Valenzuela Cytologyon 08-30-2021 Cytology (NOTE) INTERPRETATION Vaginal material, (ThinPrep vial, Imaging-assisted review): Specimen Adequacy: Satisfactory for evaluation. Descriptive Diagnosis: Negative for intraepithelial lesion or malignancy. Stage Settings Painter: CLARK Delacruz(ASCP) Electronically Signed Out ss/09/07/2021 Source: A: Vaginal material, (ThinPrep vial, Imaging-assisted review) Clinical History Hysterectomy Surgery: Salpingostomy; Ovary removal Z12.4 Encounter for screening for malignant neoplasm of cervix GYNECOLOGIC CYTOLOGY REPORT Patient Name: KARINA DE OLIVEIRA [facility] Rec: [id number] Path Number: [id number] [facility] ANATOMIC PATHOLOGY [address] [place] [phone] Normal [facility] Comment on above: Performed By: #### P PPVP #### [address] [address] [place] Printer: Luca Cummins MD CBC AUTO DIFFon 08-09-2021 BASO # 0.1 103/ul Normal 0.0-0.[address] [facility] Comment on above: Performed By: #### C BC #### [facility] [address] [place] [address] Dr. Ricky Valenzuela Basophils/100 WBC (Bld) 0.8 % Normal 0.2-2.[address] [facility] Comment on above: Performed By: #### C BC #### [facility] [address] [place] [address] Dr. Ricky Valenzuela EO # 0.2 103/ul Normal 0.0-0.[address] [facility] Comment on above: Performed By: #### C BC #### [facility] [address] [place] [address] Dr. Ricky Valenzuela Eosinophils/100 WBC (Bld) 2.1 % Normal 0.9-7.[address] [facility] Comment on above: Performed By: #### C BC #### [facility] [address] [place] [address] Dr. Ricky Valenzuela Erythrocyte distribution width (RBC) [Ratio] 15.2 % Critically high 11.0-15.[address] [facility] Comment on above: Performed By: #### C BC #### [facility] [address] [place] [address] Dr. Ricky Valenzuela Hematocrit (Bld) [Volume fraction] 41.5 % Normal 36.0-48.[address] [facility] Comment on above: Performed By: #### C BC #### [facility] [address] [place] [address] Dr. Ricky Valenzuela Hemoglobin (Bld) [Mass/Vol] 13.5 g/dL Normal 12.0-16.[address] [facility] Comment on above: Performed By: #### C BC #### [facility] [address] [place] [address] Dr. Ricky Valenzuela IG # 0.42 10e3/ul Critically high 0.00-0.03 [facility] Comment on above: Performed By: #### C BC #### [facility] [address] [place] [address] Dr. Ricky Valenzuela IG % 3.8 % Critically high 0.0-0.5 [facility] Comment on above: Performed By: #### C BC #### [facility] [address] [place] [address] Dr. Ricky Valenzuela LYMPH # 3.3 103/ul Normal 1.2-3.8 [facility] Comment on above: Performed By: #### C BC #### [facility] [address] [place] [address] Dr. Ricky Valenzuela Lymphocytes/100 WBC (Bld) 29.1 % Normal 20.5-60.[address] [facility] Comment on above: Performed By: #### C BC #### [facility] [address] [place] [address] Dr. Ricky Valenzuela MANUAL DIFF REQ NO Normal [facility] Comment on above: Performed By: #### C BC #### [facility] [facility] [address] [place] [address] Dr. Ricky Valenzuela MCH (RBC) [Entitic mass] 32.4 pg Normal 26.7-34.[address] [facility] Comment on above: Performed By: #### C BC #### [facility] [address] [place] [address] Dr. Ricky Valenzuela MCHC (RBC) [Mass/Vol] 32.5 g/dL Normal 29.9-35.[address] [facility] Comment on above: Performed By: #### C BC #### [facility] [address] [place] [address] Dr. Ricky Valenzuela MCV (RBC) [Entitic vol] 99.5 fL Critically high 81.0-99.[address] [facility] Comment on above: Performed By: #### C BC #### [facility] [address] [place] [address] Dr. Ricky Valenzuela MONO # 0.8 103/ul Normal 0.3-0.[address] [facility] Comment on above: Performed By: #### C BC #### [facility] [address] [place] [address] Dr. Ricky Valenzuela Monocytes/100 WBC (Bld) 7.5 % Normal 1.7-12.[address] [facility] Comment on above: Performed By: #### C BC #### [facility] [address] [place] [address] Dr. Ricky Valenzuela NEUT # 6.3 103/ul Normal 1.4-6.5 [facility] Comment on above: Performed By: #### C BC #### [facility] [address] [place] [address] Dr. Ricky Valenzuela Neutrophils/100 WBC (Bld) 56.7 % Normal 43.0-75.[address] [facility] Comment on above: Performed By: #### C BC #### [facility] [address] [place] [address] Dr. Ricky Valenzuela Platelet mean volume (Bld) [Entitic vol] 9.8 fL Normal 9.5-13.[address] [facility] Comment on above: Performed By: #### C BC #### [facility] [address] [address] [address] Ricky Valenzuela PLT 265 103/ul Normal 150-450 [facility] Comment on above: Performed By: #### C BC #### [facility] [address] [address] [address] Ricky Valenzuela RBC 4.17 106/ul Critically low 4.20-5.40 [facility] Comment on above: Performed By: #### C BC #### [facility] [address] [address] [address] Ricky Valenzuela WBC 11.2 103/ul Critically high 4.0-11.0 [facility] Comment on above: Performed By: #### C BC #### [facility] [address] [address] [address] Ricky Valenzuela GLYCOHEMOGLOBIN A1Con 2021 ADA RECOMMENDATION SEE BELOW Normal [facility] Comment on above: Result Comment: ADA RECOMMENDED LIMIT 4.0 - 6.0 ADA THERAPEUTIC TARGET < 7.0 ACTION SUGGESTED > 7.0 Performed By: #### A 1C ####[facility] [id number] [address]Dr. Ricky Valenzuela Glucose [Mass/Vol] 183 mg/dL Normal [facility] Comment on above: Performed By: #### A 1C ####[facility] [id number] [id number]. Ricky Valenzuela HbA1c (Bld) [Mass fraction] 8.0 % Critically high 4.5-6.[address] [facility] Comment on above: Performed By: #### A 1C ####[facility] [id number] [address]Dr. Ricky Valenzuela LIPID PROFILEon 08-09-2021 CHOL-HDL RATIO NORM SEE BELOW Normal [facility] Comment on above: Result Comment: 3.3 - 4.4 LOW RISK 4.4 - 7.1 AVERAGE RISK 7.1 - 11.0 MODERATE RISK >11.0 HIGH RISK Performed By: #### C MP, LIPID #### [facility] [address] [address] [address] Ricky Valenzuela Cholesterol [Mass/Vol] 239 mg/dL Critically high <=[address] [facility] Comment on above: Performed By: #### C MP, LIPID #### [facility] [address] [address] [address] Ricky Valenzuela Cholesterol in HDL [Mass/Vol] 36 mg/dL Critically low 40-[address] [facility] Comment on above: Performed By: #### C MP, LIPID #### [facility] [address] [address] [address] Ricky Valenzuela Cholesterol in LDL [Mass/Vol] 164.2 mg/dL Normal [facility] Comment on above: Performed By: #### C MP, LIPID #### [facility] [address] [place] [address] Dr. Ricky Valenzuela Cholesterol.total/Cho lesterol in HDL [Mass ratio] 6.6 {ratio} Normal [facility] Comment on above: Performed By: #### C MP, LIPID #### [facility] [address] [address] [address] Ricky Valenzuela HDL NORMAL > or = 60 mg/dl - LO W CARDIOVASCULAR RISK <40 mg/dl - HIGH CARDIOVASCULAR RISK Normal [facility] Comment on above: Performed By: #### C MP, LIPID #### [facility] [address] [address] [address] Ricky Valenzuela LDL CALC NORMAL SEE BELOW Normal [facility] Comment on above: Result Comment: <100 mg/dl OPTIMAL 100 - 129 mg/dl NEAR OR ABOVE OPTIMAL 130 - 159 mg/dl BORDERLINE HIGH 160 - 189 mg/dl HIGH >190 mg/dl VERY HIGH Performed By: #### C MP, LIPID #### [facility] [address] [address] [address] Ricky Valenzuela Triglyceride [Mass/Vol] 194 mg/dL Critically high <=[address] [facility] Comment on above: Performed By: #### C MP, LIPID #### [facility] [address] [address] [address] Ricky Valenzuela VLDL CALC 38.8 mg/dL Normal [facility] Comment on above: Performed By: #### C MP, LIPID #### [facility] [address] [address] [address] Ricky Valenzuela MICROALBUMIN, RAND URon 07-13 mALB 13.1 mg/L Normal <=30.[address] [facility] Comment on above: Performed By: #### M ALBR ####[facility] [id number] [address]Dr. Ricky Valenzuela PROF 14(COMP METB)on 022 Albumin [Mass/Vol] 3.3 g/dL Critically low 3.4-5.0 [facility] Comment on above: Performed By: #### C MP, LIPID #### [facility] [address] [place] [address] Dr. Ricky Valenzuela Albumin/Globulin [Mass ratio] 0.8 {ratio} Normal [facility] Comment on above: Performed By: #### C MP, LIPID #### [facility] [address] [place] [address] Dr. Ricky Valenzuela ALP [Catalytic activity/Vol] 93 U/L Normal 46-[address] [facility] Comment on above: Performed By: #### C MP, LIPID #### [facility] [address] [place] [address] Dr. Ricky Valenzuela ALT [Catalytic activity/Vol] 37 U/L Normal 14-[address] [facility] Comment on above: Performed By: #### C MP, LIPID #### [facility] [address] [place] [address] Dr. Ricky Valenzuela Anion gap [Moles/Vol] 10.9 mmol/L Normal [facility] [place] Comment on above: Performed By: #### C MP, LIPID #### [facility] [address] [place] [address] Dr. Ricky Valenzuela AST [Catalytic activity/Vol] 10 U/L Critically low 15-[address] [facility] Comment on above: Performed By: #### C MP, LIPID #### [facility] [address] [address] [address] Ricky Valenzuela Bilirubin [Mass/Vol] 0.2 mg/dL Normal 0.2-1.[address] [facility] Comment on above: Performed By: #### C MP, LIPID #### [facility] [address] [place] [address] Dr. Ricky Valenzuela Calcium [Mass/Vol] 9.0 mg/dL Normal 8.5-10.1 [facility] Comment on above: Performed By: #### C MP, LIPID #### [facility] [address] [place] [address] Dr. Ricky Valenzuela Chloride [Moles/Vol] 100 mmol/L Normal 98-[address] [facility] Comment on above: Performed By: #### C MP, LIPID #### [facility] [address] [place] [address] Dr. Ricky Valenzuela CO2 [Moles/Vol] 32.2 mmol/L Critically high 21.0-32.[address] [facility] Comment on above: Performed By: #### C MP, LIPID #### [facility] [address] [place] [address] Dr. Ricky Valenzuela Creatinine [Mass/Vol] 0.95 mg/dL Normal 0.55-1.[address] [facility] Comment on above: Performed By: #### C MP, LIPID #### [facility] [address] [place] [address] Dr. Ricky Valenzuela EGFR-AF [place]ORE[place] >60 Normal >=60 [facility] Comment on above: Performed By: #### C MP, LIPID #### [facility] [address] [place] [address] Dr. Ricky Valenzuela EGFR-NON AF [place]ORE[place] >60 Normal >=[address] [facility] Comment on above: Performed By: #### C MP, LIPID #### [facility] [address] [place] [address] Dr. Ricky Valenzuela Globulin (S) [Mass/Vol] 4.2 g/dL Normal [facility] Comment on above: Performed By: #### C MP, LIPID #### [facility] [address] [place] [address] Dr. Ricky Valenzuela Glucose [Mass/Vol] 200 mg/dL Critically high 74-106 [facility] [place] Comment on above: Performed By: #### C MP, LIPID #### [facility] [address] [address] [address] Ricky Valenzuela Potassium [Moles/Vol] 4.1 mmol/L Normal 3.5-5.[address] [facility] Comment on above: Performed By: #### C MP, LIPID #### [facility] [address] [address] [address] Ricky Valenzuela Protein [Mass/Vol] 7.5 g/dL Normal 6.4-8.2 [facility] Comment on above: Performed By: #### C MP, LIPID #### [facility] [address] [address] [address] Ricky Valenzuela Sodium [Moles/Vol] 139 mmol/L Normal 136-145 [facility] Comment on above: Performed By: #### C MP, LIPID #### [facility] [address] [address] [address] Ricky Valenzuela Urea nitrogen [Mass/Vol] 13.0 mg/dL Normal 7.0-18.[address] [facility] Comment on above: Performed By: #### C MP, LIPID #### [facility] [address] [address] [address] Ricky Valenzuela Urea nitrogen/Creatinine [Mass ratio] 13.7 mg/mg Normal [facility] Comment on above: Performed By: #### C MP, LIPID #### [facility] [address] [address] [address] Ricky Valenzuela POINT OF CARE GLUCOSEon 06-12 Glucose [Mass/Vol] 176 mg/dL Critically high 74-106 [facility] [place] Comment on above: Performed By: #### P OCGLUC #### [facility] [address] [address] [address] Ricky Valenzuela Social History Date Type Detail Facility Start: 02-25-2023 Sex Assigned At [employer] Other Start: 02-25-2023 Alcohol intake Lifetime non-d gus (finding) [facility] Start: 01-23-2023 End: 01-29-2023 Tobacco smoking status NHIS Ex-smoker [facility] Start: 01-29-2023 End: 02-25-2023 Cigarettes smoked current (pack per day) - Reported 0.5 [facility] Start: 08-30-2021 Tobacco smoking stat us IDIS Smokes tobacco daily [employer] Phone: Start: 08-30-2021 End: 01-29-2023 Tobacco use and exposure Smokeless tobacco non-user [employer] Phone: Start: 08-30-2021 Alcohol intake Current drinke r of alcohol (finding) [employer] Phone: Start: 08-30-2021 History SDOH Alcohol Comment occasional [employer] Phone: Start: 08-20-2021 End: 08-30-2021 Exposure to SARS-CoV-2 (event) Not sure [employer] Start: 1965 Sex Assigned At Not on file [employer] Phone: Start: 1965 Sex Assigned At Female [facility] History of tobacco use Cigarette Smoker [employer]: History of tobacco use Current smoker [facility] Vital Signs Date Time Vital Sign Value Performing Clinician Facility 01-18-2023 09:10-0500 Body height 156.21 cm Elle Hendricks Other [facility] Other 01-18-2023 09:10-0500 Body mass index (BMI) [Ratio] 42.82 kg/m2 Elle Hendricks Other [facility] Other 01-18-2023 09:10-0500 Body temperature 98.2 [degF] Elle Hendricks Other [facility] Other 01-18-2023 09:10-0500 Body weight 104.51 kg Elle Hendricks Other [facility] Other 01-18-2023 09:10-0500 Diastolic blood pressure 92 mm[Hg] Elle Hendricks Other [facility] Other 01-18-2023 09:10-0500 Respiratory rate 18 /min Elle Hendricks Other [facility] Other 01-18-2023 09:10-0500 SaO2% (BldA) [Mass fraction] 97 % Elle Hendricks Other [facility] Other 01-18-2023 09:10-0500 Systolic blood pressure 145 mm[Hg] Elle Hendricks Other [facility] Other Clinical Notes 06-20-2021 to 03-19-2023 Note Date [...] Mar, Left hand pain (ICD-10 - M79.642) [facility] Other 12-13-2023 Evaluation note* Encounter Date Diagnosis [...] noted. Patient will f/u in 4 weeks. [facility] Other 12-08-2023 Evaluation note* Encounter Date Diagnosis [...] left hand x-ray that was performed at [facility] which revealed degenerative changes in the hand as well as a remote avulsion fracture of the thumb. Patient states her family doctor is treating her for gout in her hand. Jan, History of gout (ICD-10 - Z87.39) Jan, Other Gout material w as printed [facility] Other 08-09-2023 Evaluation note* Encounter Date Diagnosis Assessment Notes Treatment Notes Treatment Clinical Notes Sep, Right wrist pain (ICD-10 - M25.531) [facility] Other 04-27-2023 NoteCONSULTATION CONSULTATION DATE: 06/07/2022 TO: [...] our patients to inform us about any [id number]-turclpf medications or herbal remedies/nutritional supplements/alternative remedies. 2. [...] treatment options with their primary care provider.[id number] Evaluation note * Encounter Date Diagnosis Assessment [...] understanding and is agreeable to treatment plan. [facility] Other 01-26-2023 NoteCONSULTATION PROCEDURE DATE: 03/08/2022 PREOPERATIVE [...] will be followed up in the clinic.[facility] [id number] NotePROCEDURE: XR KNEE LT 4V or > [...] Electronically authenticated by: PATTIE SALTER Date: 2022-02-16 11:29[facility]12-30-2022 NoteCONSULTATION CONSULTATION DATE: 02/09/2022 HISTORY OF [...] office today. Patient agrees with this plan.[facility] [id number] NotePROCEDURE: XR WRIST RT MIN 3 V COMPARISON: None. HISTORY: Injury of right wrist FINDINGS: BONES:No acute fracture or dislocation. Corticated bone fragment identified along the first carpometacarpal joint [degenerative in nature SOFT TISSUES:Moderate diffuse soft tissue swelling EFFUSION:None visible. OTHER: Negative. IMPRESSION: Soft tissue swelling, no acute fracture Electronically authenticated by: YRAN GOLDMAN Date: 2021-11-16 18:59[facility] [id number] NoteCONSULTATION CONSULTATION DATE: 11/01/2021 HISTORY OF PRESENT [...] otherwise indicated. Patient agrees with this plan.[facility] [id number] NoteCONSULTATION PROCEDURE DATE: 11/01/2021 PRE AND POSTOPERATIVE [...] will be followed up in the clinic.[facility] [id number] NoteCONSULTATION PROCEDURE DATE: 08/09/2021 PREOPERATIVE DIAGNOSIS: Bilateral [...] will be followed up in the clinic. [facility] Signed and Approved by: CRYS PIERCE . 08/10/2021 13:37:00[facility] [id number] NoteCONSULTATION CONSULTATION DATE: 07/19/2021 HISTORY OF PRESENT [...] injections. Patient acknowledges and all questions answered. [facility] Signed and Approved by: CRYS PIERCE . 07/20/2021 10:33:00[facility]05-25-2022 NotePROCEDURE: XR FOOT RT MIN 3 [...] Electronically authenticated by: PATTIE SALTER Date: 2021-07-05 11:11[facility]05-10-2022 NoteCONSULTATION CONSULTATION DATE: 06/20/2021 CHIEF COMPLAINT: [...] like to proceed. CC: Jonathan Edwards M.D. [facility] Signed and Approved by: DR RICARDO HOLM . 06/27/2021 10:40:00[facility] Routine cervical smear Screening for malignant neoplasm of the cervix documented in this encounter [facility] Work Phone: evaluation note* Diagnosis Diabetic polyneuropathy associated with type 2 diabetes mellitus (CMS/HCC)- Primary documented in this encounter [facility] HealthcareEvaluation noteNo assessment information [facility] Work Phone: History general Narrative - Reported* Type Description Date Medical History GERD (gastroesophageal reflux di sease) Medical History Migraine headache Medical History Arthritis Medical History Edema of both legs Medical History Diabetes mellitus, type 2 Medical History Chronic back pain Surgical History ablasion Surgical History back surgery Surgical History hysterectomy Surgical History tubal ligation Hospitalization History see above [facility] Other Summary Purpose Family History No Family [...] Care Teams (unrecognized sec tion and content) [employer] Relationship Specialty Start Date End Date Sr Jonathan Edwards DO [address] [place] [address] PCP - General Family Medicine 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 [facility] [employer] [facility]. provides no warranty or guarantee of the accuracy or completeness of information in this document.
== END 2023-08-13 14:04 | disposition home or self-care (01) ==
LOC: EC 14:03
PROVIDERS: PCP Internal Medicine; Visit Provider Podiatrist Foot & Ankle Surgery
DX: M79.672 Pain in left foot (principal); S82.832D Other fracture of upper and lower end of left fibula, subsequent encounter for closed fracture with routine healing; Z98.890 Other specified postprocedural states
CPT/HCPCS: 73590; 73630

== ENCOUNTER 2023-08-17 01:32 | Observation (INO) | payer OTHER, MEDICARE, SELFPAY ==
[2023-08-17] VITALS (12 sets, daily range): BP systolic 101–148; BP diastolic 64–92; PULSE 92–113; TEMP 36.6–36.8; O2SAT 84–97; BMI 41.6; BMI 41.4
--- OUTSIDE RECORDS SUMMARY | 2023-08-17 01:37 | XMS_ITS | CCD ---
Author Organization [facility] Care Team Providers Care Freezer Laboratory Technician Name Role Phone House DO, Sr Jonathan [...] Nieves Consulting Unavailable SUSSY JONES Consulting Unavailable [place], DR BASURTO Attending Unavailable [place], DR BASURTO Primary Care Unavailable [place], DR BASURTO Admitting Unavailable [place], DR JONATHAN Trimble Unavailable [place], DR BASURTO Primary Care Unavailable GAETANO, DR PATTIE Nieves Consulting Unavailable LAKSHMIPATHY ., NARENDSABAS Admitting Nellie vailable LAKSHMIPATHY ., DEMETRIUSATH Attending Nellie vailable LAKSHMIPATHY ., BILLY Consulting Nellie vailable [place], DR BASURTO Admitting Unavailable [place], DR BASURTO Attending Unavailable [place], DR BASURTO Primary Care Unavailable HOWARD, DR RYAN Guzman Consulting Unavailable [place], DR JONATHAN Trimble Unavailable HOLM ., DR RICARDO Belcher Admitting Unavailable HOUSE, DR BASURTO Primary Care Unavailable HOML ., DR RICARDO Belcher Attending Unavailable HOLM ., DR RICARDO Belcher Consulting Unavailable HOLM ., DR RICARDO Belcher Admitting Unavailable HOUSE, DR BASURTO Primary Care Unavailable HOLM ., DR RICARDO Belcher Attending Unavailable HOLM ., DR RICARDO Belcher Consulting Unavailable PIERCE ., CRYS Consulting Unavailable PIERCE ., CRYS Trimble Unavailable [place], DR BASURTO Primary Care Unavailable HOLM ., DR RICARDO Belcher Admitting Unavailable HOLM ., DR RICARDO Belcher Attending Unavailable LAKSHMIPATHY ., BILLY Consulting Nellie vailable [place], DR BASURTO Primary Care Unavailable HOLM ., DR RICARDO Belcher Admitting Unavailable HOLM ., DR RICARDO Belcher Attending Unavailable PIERCE ., CRYS Consulting Unavailable Elle Hendricks Unavailable Shaikh Connelly MD Primary Care Provider ELIDA GARCIA Attending Unavailable SHAIKH CONNELLY Attending Unavailable SHAIKH CONNELLY Attending Unavailable SHAIKH CONNELLY Attending Unavailable SHAIKH OCNNELLY Attending Unavailable Medications Current Medications Medication Drug [...] 12, 2017 1:00am January 15, 2017 2:23pm Yehosxvezfvq-Ql-Elz n-Minerals (Multiple Vitamin, Womens) Tablet (1 source) Start: 01-12-2017 End: 01-15-2017 Uhkylkbdcknw-Qy-Zn on-Minerals (Multiple Vitamin, Womens) Tablet Discontinued PO Daily January 12, 2017 1:00am January 15, 2017 2:23pm triamcinolone acetonide 40 mg/ml injectable suspension (3 sources) Corticosteroid Start: 03-19-2023 Kenalog-40 Mar, 20 mg Start: 01-23-2023 Kenalog-40 13 Jan, 2023 30 mg Problems Active Problems Problem Classification [...] PATTIE SALTER Date: 2022-06-07 11:15 Normal [facility] CBC AUTO DIFFon 04-12-2022 BASO # 0.1 103/ul Normal 0.0-0.1 [facility] Comment on above: Performed By: #### C BC ####[facility] [address] [place] [address]Dr. Ricky Valenzuela Basophils/100 WBC (Bld) 0.5 % Normal 0.2-2.0 [facility] Comment on above: Performed By: #### C BC ####[facility] [address] [place], [place] [address]Dr. Ricky Valenzuela EO # 0.3 103/ul Normal 0.0-0.7 [facility] Comment on above: Performed By: #### C BC ####[facility] [address] [place] [address]Dr. Ricky Valenzuela Eosinophils/100 WBC (Bld) 3.0 % Normal 0.9-7.0 [facility] Comment on above: Performed By: #### C BC ####[facility] [address] [place], [place] [address]Dr. Ricky Valenzuela Erythrocyte distribution width (RBC) [Ratio] 14.8 % Normal 11.0-15.0 [facility] Comment on above: Performed By: #### C BC ####[facility] [address] [place], [place] [address]Dr. Ricky Valenzuela Hematocrit (Bld) [Volume fraction] 40.6 % Normal 36.0-48.0 [facility] Comment on above: Performed By: #### C BC ####[facility] [address] [place], [place] [address]Dr. Ricky Valenzuela Hemoglobin (Bld) [Mass/Vol] 13.5 g/dL Normal 12.0-16.0 [facility] Comment on above: Performed By: #### C BC ####[facility] [address] [place] [address]Dr. Ricky Valenzuela IG # 0.16 10e3/ul Critically high 0.00-0.03 [facility] Comment on above: Performed By: #### C BC ####[facility] [address] [place] [address]Dr. Ricky Valenzuela IG % 1.4 % Critically high 0.0-0.5 [facility] Comment on above: Performed By: #### C BC ####[facility] [address] [place] [address]Dr. Ricky Valenzuela LYMPH # 3.4 103/ul Normal 1.2-3.8 [facility] Comment on above: Performed By: #### C BC ####[facility] [address] [place] [address]Dr. Lesleysharron Valenzuela Lymphocytes/100 WBC (Bld) 30.4 % Normal 20.5-60.0 [facility] Comment on above: Performed By: #### C BC ####[facility] [address] [place] [address]Dr. Ricky Valenzuela MANUAL DIFF REQ NO Normal [facility] Comment on above: Performed By: #### C BC ####[facility] [address] [place], [place] [address]Dr. Ricky Valenzuela MCH (RBC) [Entitic mass] 31.8 pg Normal 26.7-34.0 [facility] Comment on above: Performed By: #### C BC ####[facility] [address] [place], [place] [address]Dr. Ricky Valenzuela MCHC (RBC) [Mass/Vol] 33.3 g/dL Normal 29.9-35.2 [facility] Comment on above: Performed By: #### C BC ####[facility] [address] [place], [place] [address]Dr. Ricky Valenzuela MCV (RBC) [Entitic vol] 95.5 fL Normal 81.0-99.0 [facility] Comment on above: Performed By: #### C BC ####[facility] [address] [place], [place] [address]Ig. iRcky Valenzuela MONO # 0.9 103/ul Critically high 0.3-0.8 [facility] Comment on above: Performed By: #### C BC ####[facility] [address] [place] [address]Dr. Ricky Valenzuela Monocytes/100 WBC (Bld) 7.7 % Normal 1.7-12.0 [facility] Comment on above: Performed By: #### C BC ####[facility] [address] [place] [address]Dr. Ricky Valenzuela NEUT # 6.3 103/ul Normal 1.4-6.5 [facility] Comment on above: Performed By: #### C BC ####[facility] [address] [place] [address]Dr. Ricky Valenzuela Neutrophils/100 WBC (Bld) 57.0 % Normal 43.0-75.0 [facility] Comment on above: Performed By: #### C BC ####[facility] [address] [place] [address]Dr. Ricky Valenzuela Platelet mean volume (Bld) [Entitic vol] 9.8 fL Normal 9.5-13.5 [facility] Comment on above: Performed By: #### C BC ####[facility] [address] [place] [address]Dr. Ricky Valenzuela PLT 246 103/ul Normal 150-450 [facility] Comment on above: Performed By: #### C BC ####[facility] [address] [place] [address]Dr. Ricky Valenzuela RBC 4.25 106/ul Normal 4.20-5.40 [facility] Comment on above: Performed By: #### C BC ####[facility] [address] [place] [address]Dr. Ricky Valenzuela WBC 11.1 103/ul Critically high 4.0-11.0 [facility] Comment on above: Performed By: #### C BC ####[facility] [address] [place] [address]DrPasquale Valenzuela GLYCOHEMOGLOBIN A1Con 2022 ADA RECOMMENDATION SEE BELOW Normal [facility] Comment on above: Result Comment: ADA RECOMMENDED LIMIT 4.0 - 6.0 ADA THERAPEUTIC TARGET < 7.0 ACTION SUGGESTED > 7.0 Performed By: #### A 1C ####[facility] [address] [place] [address]DrPasquale Valenzuela Glucose [Mass/Vol] 160 mg/dL Normal [facility] Comment on above: Performed By: #### A 1C ####[facility] [address] [place] [address]DrPasquale Valenzuela HbA1c (Bld) [Mass fraction] 7.2 % Critically high 4.5-6.2 [facility] Comment on above: Performed By: #### A 1C ####[facility] [address] [place] [address]DrPasquale Valenzuela MICROALBUMIN, RAND URon - mALB <1.3 Normal <=30.0 [facility] Comment on above: Performed By: #### M ALBR #### [facility] [address] [place] [address] Dr. Ricky Valenzuela PROF 14(COMP METB)on 023 Albumin [Mass/Vol] 3.3 g/dL Critically low 3.4-5.0 [facility] Comment on above: Performed By: #### C MP #### [facility] [address] [place] [address] [address] Ricky Valenzuela Albumin/Globulin [Mass ratio] 0.9 {ratio} Normal [facility] Comment on above: Performed By: #### C MP #### [facility] [address] [place] [address] [address] Ricky Valenzuela ALP [Catalytic activity/Vol] 90 U/L Normal 46-116 [facility] Comment on above: Performed By: #### C MP #### [facility] [address] [place] [address] [address] Ricky Valenzuela ALT [Catalytic activity/Vol] 42 U/L Normal 14-59 [facility] Comment on above: Performed By: #### C MP #### [facility] [address] [address] [address] Ricky Valenzuela Anion gap [Moles/Vol] 10.1 mmol/L Normal Th [facility] Comment on above: Performed By: #### C MP #### [facility] [address] [place] [address] [address] Ricky Valenzuela AST [Catalytic activity/Vol] 21 U/L Normal 15-37 [facility] Comment on above: Performed By: #### C MP #### [facility] [address] [place] [address] [address] Ricky Valenzuela Bilirubin [Mass/Vol] 0.3 mg/dL Normal 0.2-1.0 [facility] Comment on above: Performed By: #### C MP #### [facility] [address] [place] [address] [address] Ricky Valenzuela Calcium [Mass/Vol] 9.8 mg/dL Normal 8.5-10.1 [facility] Comment on above: Performed By: #### C MP #### [facility] [address] [address] [address] Ricky Valenzuela Chloride [Moles/Vol] 99 mmol/L Normal 98-107 [facility] Comment on above: Performed By: #### C MP #### [facility] [address] [place] [address] [address] Ricky Valenzuela CO2 [Moles/Vol] 33.7 mmol/L Critically high 21.0-32.0 [facility] Comment on above: Performed By: #### C MP #### [facility] [address] [place] [address] [address] Ricky Valenzuela Creatinine [Mass/Vol] 0.94 mg/dL Normal 0.55-1.02 [facility] Comment on above: Performed By: #### C MP #### [facility] [address] [place] [address] [address] Ricky Valenzuela EGFR-AF FINNISH >60 Normal >=60 [facility] Comment on above: Performed By: #### C MP #### [facility] [address] [address] [address] Ricky Valenzuela EGFR-NON AF FINNISH >60 Normal >=60 [facility] Comment on above: Performed By: #### C MP #### [facility] [address] [address] [address] Ricky Valenzuela Globulin (S) [Mass/Vol] 3.8 g/dL Normal [facility] Comment on above: Performed By: #### C MP #### [facility] [address] [place] [address] [address] Ricky Valenzuela Glucose [Mass/Vol] 168 mg/dL Critically high 74-106 T [facility] Comment on above: Performed By: #### C MP #### [facility] [address] [address] [address] Ricky Valenzuela Potassium [Moles/Vol] 4.8 mmol/L Normal 3.5-5.1 [facility] Comment on above: Performed By: #### C MP #### [facility] [address] [address] [address] Ricky Valenzuela Protein [Mass/Vol] 7.1 g/dL Normal 6.4-8.2 [facility] Comment on above: Performed By: #### C MP #### [facility] [address] [place] [address] Dr. Ricky Valenzuela Sodium [Moles/Vol] 138 mmol/L Normal 136-145 [facility] Comment on above: Performed By: #### C MP #### [facility] [address] [address] [address] Ricky Valenzuela Urea nitrogen [Mass/Vol] 22.0 mg/dL Critically high 7.0-18.0 [facility] Comment on above: Performed By: #### C MP #### [facility] [address] [place] [address] Dr. Ricky Valenzuela Urea nitrogen/Creatinine [Mass ratio] 23.4 mg/mg Normal [facility] Comment on above: Performed By: #### C MP #### [facility] [address] [address] [address] Ricky Valenzuela Cytologyon 08-30-2021 Cytology (NOTE) INTERPRETATION Vaginal material, (ThinPrep vial, Imaging-assisted review): Specimen Adequacy: Satisfactory for evaluation. Descriptive Diagnosis: Negative for intraepithelial lesion or malignancy. Repairer Shoe Sticks: CLARK Delacruz(ASCP) Electronically Signed Out /09/07/2021 Source: A: Vaginal material, (ThinPrep vial, Imaging-assisted review) Clinical History Hysterectomy Surgery: Salpingostomy; Ovary removal Z12.4 Encounter for screening for malignant neoplasm of cervix GYNECOLOGIC CYTOLOGY REPORT Patient Name: KARINA DE OLIVEIRA [facility] Rec: [id number] Path Number: [id number] [facility] CONSULTING PATHOLOGISTS [facility] ANATOMIC PATHOLOGY [address] [place] [id number] Normal [facility] Comment on above: Performed By: #### P PPVP #### [address] [id number] Optical Brightener Maker Helper: Luca Cummins MD CBC AUTO DIFFon 08-09-2021 BASO # 0.1 103/ul Normal 0.0-0.1 [facility] Comment on above: Performed By: #### C BC #### [facility] [address] [place] [address] [address] Ricky Valenzuela Basophils/100 WBC (Bld) 0.8 % Normal 0.2-2.0 [facility] Comment on above: Performed By: #### C BC #### [facility] [address] [place] [address] [address] Ricky Valenzuela EO # 0.2 103/ul Normal 0.0-0.7 [facility] Comment on above: Performed By: #### C BC #### [facility] [address] [place] [address] [address] Ricky Valenzuela Eosinophils/100 WBC (Bld) 2.1 % Normal 0.9-7.0 [facility] Comment on above: Performed By: #### C BC #### [facility] [address] [place] [address] Dr. Ricky Valenzuela Erythrocyte distribution width (RBC) [Ratio] 15.2 % Critically high 11.0-15.0 [facility] Comment on above: Performed By: #### C BC #### [facility] [address] [place] [address] Dr. Ricky Valenzuela Hematocrit (Bld) [Volume fraction] 41.5 % Normal 36.0-48.0 [facility] Comment on above: Performed By: #### C BC #### [facility] [address] [place] [address] Dr. Ricky Valenzuela Hemoglobin (Bld) [Mass/Vol] 13.5 g/dL Normal 12.0-16.0 [facility] Comment on above: Performed By: #### C BC #### [facility] [address] [place] [address] Dr. Ricky Valenzuela IG # 0.42 10e3/ul Critically high 0.00-0.03 [facility] Comment on above: Performed By: #### C BC #### [facility] [address] [place] [address] Dr. Ricky Valenzuela IG % 3.8 % Critically high 0.0-0.5 [facility] Comment on above: Performed By: #### C BC #### [facility] [address] [place] [address] Dr. Ricky Valenzuela LYMPH # 3.3 103/ul Normal 1.2-3.8 [facility] Comment on above: Performed By: #### C BC #### [facility] [address] [place] [address] Dr. Ricky Valenzuela Lymphocytes/100 WBC (Bld) 29.1 % Normal 20.5-60.0 [facility] Comment on above: Performed By: #### C BC #### [facility] [address] [place] [address] Dr. Ricky Valenzuela MANUAL DIFF REQ NO Normal [facility] Comment on above: Performed By: #### C BC #### [facility] [address] [place] [address] Dr. Ricky Valenzuela MCH (RBC) [Entitic mass] 32.4 pg Normal 26.7-34.0 [facility] Comment on above: Performed By: #### C BC #### [facility] [address] [place] [address] Dr. Ricky Valenzuela MCHC (RBC) [Mass/Vol] 32.5 g/dL Normal 29.9-35.2 [facility] Comment on above: Performed By: #### C BC #### [facility] [address] [place] [address] Dr. Ricky Valenzuela MCV (RBC) [Entitic vol] 99.5 fL Critically high 81.0-99.0 [facility] Comment on above: Performed By: #### C BC #### [facility] [address] [place] [address] Dr. Ricky Valenzuela MONO # 0.8 103/ul Normal 0.3-0.8 [facility] Comment on above: Performed By: #### C BC #### [facility] [address] [place] [address] Dr. Ricky Valenzuela Monocytes/100 WBC (Bld) 7.5 % Normal 1.7-12.0 [facility] Comment on above: Performed By: #### C BC #### [facility] [address] [place] [address] Dr. Ricky Valenzuela NEUT # 6.3 103/ul Normal 1.4-6.5 [facility] Comment on above: Performed By: #### C BC #### [facility] [address] [place] [address] Dr. Ricky Valenzuela Neutrophils/100 WBC (Bld) 56.7 % Normal 43.0-75.0 [facility] Comment on above: Performed By: #### C BC #### [facility] [address] [place] [address] Dr. Ricky Valenzuela Platelet mean volume (Bld) [Entitic vol] 9.8 fL Normal 9.5-13.5 [facility] Comment on above: Performed By: #### C BC #### [facility] [address] [place] [address] Dr. Ricky Valenzuela PLT 265 103/ul Normal 150-450 [facility] Comment on above: Performed By: #### C BC #### [facility] [address] [address] [address] Ricky Valenzuela RBC 4.17 106/ul Critically low 4.20-5.40 [facility] Comment on above: Performed By: #### C BC #### [facility] [address] [place] [address] [address] Ricky Valenzuela WBC 11.2 103/ul Critically high 4.0-11.0 [facility] Comment on above: Performed By: #### C BC #### [facility] [address] [place] [address] [address] Ricky Valenzuela GLYCOHEMOGLOBIN A1Con 2021 ADA RECOMMENDATION SEE BELOW Normal [facility] Comment on above: Result Comment: ADA RECOMMENDED LIMIT 4.0 - 6.0 ADA THERAPEUTIC TARGET < 7.0 ACTION SUGGESTED > 7.0 Performed By: #### A 1C ####[facility] [address] [place] [address]Dr. Ricky Valenzuela Glucose [Mass/Vol] 183 mg/dL Normal [facility] Comment on above: Performed By: #### A 1C ####[facility] [address] [place] [address]Dr. Ricky Valenzuela HbA1c (Bld) [Mass fraction] 8.0 % Critically high 4.5-6.2 [facility] Comment on above: Performed By: #### A 1C ####[facility] [address] [place] [address]Dr. Ricky Valenzuela LIPID PROFILEon 08-09-2021 CHOL-HDL RATIO NORM SEE BELOW Normal [facility] Comment on above: Result Comment: 3.3 - 4.4 LOW RISK 4.4 - 7.1 AVERAGE RISK 7.1 - 11.0 MODERATE RISK >11.0 HIGH RISK Performed By: #### C MP, LIPID #### [facility] [address] [place] [address] [address] Ricky Valenzuela Cholesterol [Mass/Vol] 239 mg/dL Critically high <=200 [facility] Comment on above: Performed By: #### C MP, LIPID #### [facility] [address] [place] [address] [address] Ricky Valenzuela Cholesterol in HDL [Mass/Vol] 36 mg/dL Critically low 40-60 [facility] Comment on above: Performed By: #### C MP, LIPID #### [facility] [address] [place] [address] [address] Ricky Valenzuela Cholesterol in LDL [Mass/Vol] 164.2 mg/dL Normal [facility] Comment on above: Performed By: #### C MP, LIPID #### [facility] [address] [place] [address] [address] Ricky Valenzuela Cholesterol.total/Cho lesterol in HDL [Mass ratio] 6.6 {ratio} Normal [facility] Comment on above: Performed By: #### C MP, LIPID #### [facility] [address] [place] [address] [address] Ricky Valenzuela HDL NORMAL > or = 60 mg/dl - LO W CARDIOVASCULAR RISK <40 mg/dl - HIGH CARDIOVASCULAR RISK Normal [facility] Comment on above: Performed By: #### C MP, LIPID #### [facility] [address] [address] [address] Ricky Valenzuela LDL CALC NORMAL SEE BELOW Normal [facility] Comment on above: Result Comment: <100 mg/dl OPTIMAL 100 - 129 mg/dl NEAR OR ABOVE OPTIMAL 130 - 159 mg/dl BORDERLINE HIGH 160 - 189 mg/dl HIGH >190 mg/dl VERY HIGH Performed By: #### C MP, LIPID #### [facility] [address] [address] [address] Ricky Valenzuela Triglyceride [Mass/Vol] 194 mg/dL Critically high <=150 [facility] Comment on above: Performed By: #### C MP, LIPID #### [facility] [address] [place] [address] Dr. Ricky Valenzuela VLDL CALC 38.8 mg/dL Normal [facility] Comment on above: Performed By: #### C MP, LIPID #### [facility] [address] [address] [address] Ricky Valenzuela MICROALBUMIN, RAND URon 07-13 mALB 13.1 mg/L Normal <=30.0 [facility] Comment on above: Performed By: #### M ALBR ####[facility] [address] [place], [place] [address]Dr. Ricky Valenzuela PROF 14(COMP METB)on 022 Albumin [Mass/Vol] 3.3 g/dL Critically low 3.4-5.0 [facility] Comment on above: Performed By: #### C MP, LIPID #### [facility] [address] [place] [address] [address] Ricky Valenzuela Albumin/Globulin [Mass ratio] 0.8 {ratio} Normal [facility] Comment on above: Performed By: #### C MP, LIPID #### [facility] [address] [place] [address] Dr. Ricky Valenzuela ALP [Catalytic activity/Vol] 93 U/L Normal 46-116 [facility] Comment on above: Performed By: #### C MP, LIPID #### [facility] [address] [place] [address] [address] Ricky Valenzuela ALT [Catalytic activity/Vol] 37 U/L Normal 14-59 [facility] Comment on above: Performed By: #### C MP, LIPID #### [facility] [address] [place] [address] [address] Ricky Valenzuela Anion gap [Moles/Vol] 10.9 mmol/L Normal [facility] Comment on above: Performed By: #### C MP, LIPID #### [facility] [address] [place] [address] [address] Ricky Valenzuela AST [Catalytic activity/Vol] 10 U/L Critically low 15-37 [facility] Comment on above: Performed By: #### C MP, LIPID #### [facility] [address] [place] [address] [address] Ricky Valenzuela Bilirubin [Mass/Vol] 0.2 mg/dL Normal 0.2-1.0 [facility] Comment on above: Performed By: #### C MP, LIPID #### [facility] [address] [address] [address] Ricky Valenzuela Calcium [Mass/Vol] 9.0 mg/dL Normal 8.5-10.1 [facility] Comment on above: Performed By: #### C MP, LIPID #### [facility] [address] [place] [address] [address] Ricky Valenzuela Chloride [Moles/Vol] 100 mmol/L Normal 98-107 [facility] Comment on above: Performed By: #### C MP, LIPID #### [facility] [address] [place] [address] [address] Ricky Valenzuela CO2 [Moles/Vol] 32.2 mmol/L Critically high 21.0-32.0 [facility] Comment on above: Performed By: #### C MP, LIPID #### [facility] [address] [place] [address] Dr. Ricky Valenzuela Creatinine [Mass/Vol] 0.95 mg/dL Normal 0.55-1.02 [facility] Comment on above: Performed By: #### C MP, LIPID #### [facility] [address] [place] [address] Dr. Ricky Valenzuela EGFR-AF FINNISH >60 Normal >=60 [facility] Comment on above: Performed By: #### C MP, LIPID #### [facility] [address] [place] [address] Dr. Ricky Valenzuela EGFR-NON AF FINNISH >60 Normal >=60 [facility] Comment on above: Performed By: #### C MP, LIPID #### [facility] [address] [address] [address] Ricky Valenzuela Globulin (S) [Mass/Vol] 4.2 g/dL Normal [facility] Comment on above: Performed By: #### C MP, LIPID #### [facility] [address] [address] [address] Ricky Valenzuela Glucose [Mass/Vol] 200 mg/dL Critically high 74-106 [facility] [facility] Comment on above: Performed By: #### C MP, LIPID #### [facility] [address] [address] [address] Ricky Valenzuela Potassium [Moles/Vol] 4.1 mmol/L Normal 3.5-5.1 [facility] Comment on above: Performed By: #### C MP, LIPID #### [facility] [address] [address] [address] Ricky Valenzuela Protein [Mass/Vol] 7.5 g/dL Normal 6.4-8.2 [facility] Comment on above: Performed By: #### C MP, LIPID #### [facility] [address] [address] [address] Ricky Valenzuela Sodium [Moles/Vol] 139 mmol/L Normal 136-145 [facility] Comment on above: Performed By: #### C MP, LIPID #### [facility] [address] [place] [address] Dr. Ricky Valenzuela Urea nitrogen [Mass/Vol] 13.0 mg/dL Normal 7.0-18.0 [facility] Comment on above: Performed By: #### C MP, LIPID #### [facility] [address] [place] [address] Dr. Ricky Valenzuela Urea nitrogen/Creatinine [Mass ratio] 13.7 mg/mg Normal [facility] Comment on above: Performed By: #### C MP, LIPID #### [facility] [address] [place] [address] Dr. Ricky Valenzuela POINT OF CARE GLUCOSEon 05-2 Glucose [Mass/Vol] 176 mg/dL Critically high 74-106 [facility] Comment on above: Performed By: #### P OCGLUC #### [facility] [address] [place] [address] Dr. Ricky Valenzuela Vital Signs Date Time Vital Sign Value Performing Clinician Facility 01-18-2023 09:10-0500 Body height 156.21 cm Elle Hendricks Other [facility] Other 01-18-2023 09:10-0500 Body mass index (BMI) [Ratio] 42.82 kg/m2 Elle Ruthie Other [facility] Other 01-18-2023 09:10-0500 Body temperature 98.2 [degF] Elle Ruthie Other [facility] Other 01-18-2023 09:10-0500 Body weight 104.51 kg Elle Ruthie Other [facility] Other 01-18-2023 09:10-0500 Diastolic blood pressure 92 mm[Hg] Elle Ruthie Other [facility] Other 01-18-2023 09:10-0500 Respiratory rate 18 /min Elle Ruthie Other [facility] Other 01-18-2023 09:10-0500 SaO2% (BldA) [Mass fraction] 97 % Elle Ruthie Other [facility] Other 01-18-2023 09:10-0500 Systolic blood pressure 145 mm[Hg] Elle Ruthie Other [facility] Other Encounters Encounter Date Encounter Type Care Provider Facility Start: 08-05-2023 End: 08-05-2023 ambulatory BARRIOS FAWWAD Not Available Start: 07-04-2023 End: 07-04-2023 ambulatory BARRIOS FAWWAD Not Available Start: 05-02-2023 End: 05-02-2023 ambulatory BARRIOS FAWWAD Not Available Start: 04-30-2023 End: 04-30-[address] [facility] Work Phone: Start: 04-30-2023 End: 04-30-2023 Patient encounter procedure [facility] Work Phone: Start: 03-21-2023 Orders Only Barrios Fawwad MD Work Phone: [facility] Comment on above: Diabetic polyneuropa thy associated with type 2 diabetes mellitus (CMS/HCC) (Primary Dx) Start: 03-19-2023 End: 03-19-2023 ambulatory Ana Luisa Curtis Other [facility] Other Start: 03-19-2023 Office outpatient vi sit 15 minutes Ana Luisajesus Curtis [facility] Start: 02-25-2023 End: 02-25-2023 ambulatory ELIDA Ureña RADHA Not Available Start: 01-29-2023 End: 01-29-2023 ambulatory SHAIKH ELY Not Available Start: 01-23-2023 End: 01-23-2023 ambulatory Ana Luisa Curtis Other [facility] Other Start: 01-23-2023 Office outpatient vi sit 15 minutes Ana Luisajesus Curtis [facility] Start: 01-18-2023 End: 01-18-2023 ambulatory Ellesasha Hendricks Other [facility] Other Start: 01-18-2023 Office outpatient vi sit 15 minutes Ellesasha Hendricks [facility] Start: 09-19-2022 End: 09-19-2022 ambulatory Ana Luisa Curtis Other [facility] Other Start: 09-19-2022 Telephone encounter Ana Luisa Curtis [facility] Start: 07-12-[address] JONATHAN EDWARDS Facili ty:[facility]1 Start: 06-07-2022 End: 06-08-[address] JONATHAN EDWARDS Facility:[facility] Start: 05-02-2022 End: 05-02-2022 ambulatory Ana Luisa Crutis Other [facility] Other Start: 05-02-2022 Office outpatient ne w 30 minutes Ana Luisa Curtis [facility] Start: 04-12-2022 End: 04-13-[address] JONATHAN EDWARDS Facility:[facility] Start: 03-08-2022 End: 03-09-[address] JONATHAN EDWARDS Facility:[facility] Start: 02-16-2022 End: 02-17-[address] JONATHAN EDWARDS Facility:[facility] Start: 02-09-2022 End: 02-10-[address] RICARDO HOLM . Facility:[facility] Start: 11-16-2021 End: 11-17-[address] JONATHAN EDWARDS Facility:[facility] Start: 11-01-2021 End: 11-02-2021 ambulatory CRYS PIERCE . Facility:[facility] Start: 08-30-2021 End: 08-31-2021 ambulatory NIKKIE BARCLAY [facility] Start: 08-30-2021 End: 08-30-2021 Subsequent hospital visit by physician Sr Edwards DO Work Phone: [facility] Comment on above: Routine cervical sme ar Start: 08-16-2021 Encounter for genera l adult medical examination without abnormal findings DR RICARDO HOLM . [facility] Start: 08-09-2021 End: 08-10-2021 Encounter [...] Screening for malign ant neoplasm of colon [facility] Start: 08-30-2024 Screening for malign ant neoplasm of cervix [facility] Start: 03-20-2024 Screening for malign ant neoplasm of breast Mammogram [facility] Start: 02-27-2024 End: 02-27-2024 Patient encounter procedure 02/27/2024 11:35 AM EST Office Visit [facility] [address] [place] [address] Elida Garcia MD [address] [place] [address] [facility] Start: 02-12-2024 Glaucoma screening Diabetes: R etinopathy Screening [facility] Start: 08-11-2023 Influenza vaccination Influenza Vacc ine (#1) [facility] Comment on above: Postponed from 10/12 (Patient Refused) Start: 05-02-2023 End: 05-02-2023 Patient encounter procedure 05/02/2023 2:00 PM EDT Office Visit [facility] [address] [place] [address] Shaikh Connelly MD [address] [place] [address] [facility] Start: 02-17-2023 Hemoglobin A1c measurement Diabetes: Hemoglobin A1C [facility] Start: 09-04-2022 End: 09-04-2022 Patient encounter procedure 09/04/2022 Office Visit Obstetrics and Gynecology Nikkie Barclay, BIRTHING NURSE - CN [facility] [address] [place] [address] [facility] Start: 10-12-2021 Influenza vaccination Flu vaccine (# 1) [facility] Start: 10-21-2013 Screening for malign ant neoplasm of breast Breast cancer screen [facility] Start: 10-21-2013 Shingles vaccine (1 of 2) Shingles vaccine (1 of 2) [facility] Start: 10-21-2008 Screening for malign ant neoplasm of colon [facility] Start: 2003 Lipid panel Lipids [facility] [place] [facility] Start: 10-21-1998 Diabetes screen Diabetes screen [facility] [facility] Start: 10-21-1993 Screening for malign ant neoplasm of cervix [facility] Start: 10-21-1982 DTaP/Tdap/Td vaccine (1 - Tdap) DTaP/Tdap/Td vaccine (1 - Tdap) [facility] Start: 10-21-1982 Urine screening for protein Diabetes: Urine Protein Screening [facility] Start: 10-21-1981 Hepatitis C screening Hepatitis C sc reen [facility] Start: 10-21-1978 HIV screening HIV screen [facility] Start: 1975 Depression Screen Depression Screen [facility] Start: 04-20-1964 COVID-19 Vaccine (#1) COVID-19 Vacci ne (#1) [facility] Start: 1965 Screening for malign ant neoplasm of colon [facility] End: 08-30-2021 Cytopathology procedure, preparation of smear, genital source [facility] Routine Routine cervical smear 1 Occurrences starting 08/30/2021 until 08/30/2021 [facility] Work Phone: Comment on above: 1 Occurrences starti ng 08/30/2021 until 08/30/2021 Immunizations Immunization Date Immunization Notes Care Provider Tima garcia 01-14-2017 influenza, injectabl e, quadrivalent, preservative [facility] Payers Date Payer Category Payer Unknown [employer] [id number] 2022-Present [phone] [address] [address] [place] [address] [id number] 2012 Medicare MEDICARE MEDICAR E PART B [id number] 2012-[place] [address] Medicare [id number]. [id number] 1965 Unknown [id number] 2.16.840.1.317033.3.579.2.17 3 1963 Unknown [id number] 2.16.840.1.548050.3.579.2.59 3 1963 Unknown [id number] 2.16.840.1.513849.3.579.2.59 3 1963 Unknown [id number] 2.16.840.1.721340.3.579.2.59 3 1963 Unknown [id number] 2.16.840.1.092808.3.579.2.59 3 1963 Unknown [id number] 2.16.840.1.529801.3.579.2.59 3 1963 Unknown [id number] 2.16.840.1.706740.3.579.2.59 3 1963 Unknown [id number] 2.16.840.1.176074.3.579.2.59 3 1963 Unknown [id number] 2.16.840.1.071338.3.579.2.59 3 1963 Unknown [id number] 2.16.840.1.776309.3.579.2.59 3 1963 Unknown [id number] 2.16.840.1.076712.3.579.2.59 3 1963 Unknown [id number] 2.16.840.1.288123.3.579.2.59 3 1963 Unknown [id number] 2.16.840.1.503364.3.579.2.59 3 1963 Unknown [id number] 2.16.840.1.067388.3.579.2.59 3 1963 Unknown [id number] 2.16.840.1.960239.3.579.2.59 3 1963 Unknown [id number] 2.16.840.1.327915.3.579.2.59 3 1963 Unknown [id number] 2.16.840.1.195166.3.579.2.59 3 1963 Unknown [id number] 2.16.840.1.569988.3.579.2.12 59 1963 Unknown [id number] 2.16.840.1.418709.3.579.2.12 59 1963 Unknown [id number] 2.16.840.1.611349.3.579.2.12 59 1963 Unknown [id number] 2.16.840.1.834662.3.579.2.12 59 1963 Unknown [id number] 2.16.840.1.888830.3.579.2.12 59 1959 Medicare [id number] 1.2.840.186417.1.13.239.2.7. 3.255715.315 1959 Unknown [id number] 1.2.840.518183.1.13.239.2.7. 3.612623.315 1959 Unknown [id number] 2.16.840.1.415401.19 Medicare Medicare [id number] Self-pay Self Pay [id number] Social History Date Type Detail Facility Start: 08-30-2021 [facility] [employer] Phone: History of tobacco use Cigarette Smoker [facility] [employer] Phone: Start: 08-30-2021 End: 01-29-2023 Tobacco use and exposure Smokeless tobacco non-user [employer] Phone: Start: 08-30-2021 Alcohol intake Current drinke r of alcohol (finding) [employer] Phone: Start: 08-30-2021 History SDOH Alcohol Comment occasional [facility]ON [employer] Phone: Start: 1965 Sex Assigned At Not on file [facility] [employer] Phone: Start: 08-20-2021 End: 08-30-2021 Exposure to SARS-CoV-2 (event) Not sure [facility] [employer] Start: 02-25-2023 Sex Assigned At N [facility] Other Start: 01-23-2023 End: 01-29-2023 Tobacco smoking status [facility] Ex-smoker [facility] Healthcare History of tobacco use Current smoker [facility] Start: 01-29-2023 End: 02-25-2023 Cigarettes smoked current (pack per day) - Reported 0.5 [facility] Start: 02-25-2023 Alcohol intake Lifetime non-d gus (finding) [facility] Start: 1965 Sex Assigned At Female F [facility] Medical Equipment Procedure Code Equipment Code Equipment Origin al Text Equipment Identifier Dates USE TO TEST BLOO D SUGAR TWICE DAILY [id number] Start: 06-08-2021 Clinical Notes 06-20-2021 to 03-19-2023 [...] Mar, Left hand pain (ICD-10 - M79.642) [facility] [employer] Other 12-13-2023 Evaluation note* Encounter Date Diagnosis [...] noted. Patient will f/u in 4 weeks. [facility] [employer] Other 12-08-2023 Evaluation note* Encounter Date Diagnosis [...] left hand x-ray that was performed at [facility] which revealed degenerative changes in the hand as well as a remote avulsion fracture of the thumb. Patient states her family doctor is treating her for gout in her hand. Jan, History of gout (ICD-10 - Z87.39) Jan, Other Gout material w as printed [facility] Other 08-09-2023 Evaluation note* Encounter Date Diagnosis Assessment Notes Treatment Notes Treatment Clinical Notes Sep, Right wrist pain (ICD-10 - M25.531) [facility] Other 04-27-2023 NoteCONSULTATION CONSULTATION DATE: 06/07/2022 TO: [...] our patients to inform us about any orhs-opn-wdlwqys medications or herbal remedies/nutritional supplements/alternative remedies. 2. [...] treatment options with their primary care provider.[id number] Evaluation note * Encounter Date Diagnosis Assessment [...] understanding and is agreeable to treatment plan. [employer] Other [id number] NoteCONSULTATION PROCEDURE DATE: 03/08/2022 PREOPERATIVE DIAGNOSIS: Bilateral [...] will be followed up in the clinic.[facility] [id number] NotePROCEDURE: XR KNEE LT 4V or > [...] Electronically authenticated by: PATTIE SALTER Date: 2022-02-16 11:29[facility]12-30-2022 NoteCONSULTATION CONSULTATION DATE: 02/09/2022 HISTORY [...] office today. Patient agrees with this plan.[facility] [id number] NotePROCEDURE: XR WRIST RT MIN 3 V COMPARISON: None. HISTORY: Injury of right wrist FINDINGS: BONES:No acute fracture or dislocation. Corticated bone fragment identified along the first carpometacarpal joint [degenerative in nature SOFT TISSUES:Moderate diffuse soft tissue swelling EFFUSION:None visible. OTHER: Negative. IMPRESSION: Soft tissue swelling, no acute fracture Electronically authenticated by: RYAN GOLDMAN Date: 2021-11-16 18:59[facility] [id number] NoteCONSULTATION CONSULTATION DATE: 11/01/2021 HISTORY OF PRESENT [...] otherwise indicated. Patient agrees with this plan.[facility] [id number] NoteCONSULTATION PROCEDURE DATE: 11/01/2021 PRE AND POSTOPERATIVE [...] will be followed up in the clinic.[facility] [id number] NoteCONSULTATION PROCEDURE DATE: 08/09/2021 PREOPERATIVE DIAGNOSIS: Bilateral [...] will be followed up in the clinic. [facility] Signed and Approved by: CRYS IPERCE . 08/10/2021 13:37:00[facility] [id number] NoteCONSULTATION CONSULTATION DATE: 07/19/2021 HISTORY OF PRESENT [...] injections. Patient acknowledges and all questions answered. [facility] Signed and Approved by: CRYS PIERCE . 07/20/2021 10:33:00[facility]05-25-2022 NotePROCEDURE: XR FOOT RT MIN [...] Electronically authenticated by: PATTIE SALTER Date: 2021-07-05 11:11[facility]05-10-2022 NoteCONSULTATION CONSULTATION DATE: 06/20/2021 CHIEF [...] like to proceed. CC: Jonathan Edwards M.D. [facility] Signed and Approved by: DR RICARDO HOLM . 06/27/2021 10:40:00[facility] Routine cervical smear Screening for malignant neoplasm of the cervix documented in this encounter MIKE [facility] Work Phone: evaluation note* Diagnosis Diabetic polyneuropathy associated with type 2 diabetes mellitus (CMS/HCC)- Primary documented in this encounter [facility] HealthcareEvaluation noteNo assessment information availableMet[facility] Work Phone: History general Narrative - Reported* Type Description Date Medical History GERD (gastroesophageal reflux di sease) Medical History Migraine headache Medical History Arthritis Medical History Edema of both legs Medical History Diabetes mellitus, type 2 Medical History Chronic back pain Surgical History ablasion Surgical History back surgery Surgical History hysterectomy Surgical History tubal ligation Hospitalization History see above [employer] Other Summary Purpose Family History No Family [...] Care Teams (unrecognized sec tion and content) [facility] Techn[facility] Relationship Specialty Start Date End Date Sr Jonathan Edwards DO [address] [place] [address] PCP - General Family Medicine 08/30/21 [facility] Techn[facility] Relationship Specialty Start Date End Date Shaikh [...] [facility] DATE CREATED AUTHOR AUTHOR'S ORGANRONALDO ATDINA 08/06/2023 [facility] dical Specialists EPIC REASON FOR VISIT [...] BE BASED ON THE PRIMARY CLINICAL RECORDS. [facility]. provides no warranty or guarantee of the accuracy or completeness of information in this document.
--- NOTE | 2023-08-17 01:40 | XR_ITS ---
The [address] [address] Patient Name: KARINA DE OLIVEIRA MRN: [id number] date: 1965 Sex: F Assigned Patient Location: ER Current Patient Location: ER Accession/Order Number: [id number] Exam Date: 08/17/2023 02:15 Report Date: 08/17/2023 02:37 At the request of: BRANDT LEONARDO Procedure: XR lumbar spine 2-3V EXAM: XR lumbar spine 2-3V HISTORY: Atraumatic pain . Chronic back pain. No injury. COMPARISON: None. TECHNIQUE: 3 views the lumbar spine. FINDINGS: There is a moderate anterior compression fracture involving the superior L1 vertebral body. This is age indeterminant but has smooth margins and is likely nonacute. The L2-L5 vertebral bodies are normal in height. There are diffuse retrolisthesis of L1-L4. Advanced degenerative disc disease is seen at L1-L3 and at L5-S1. A mild broad lumbar levoscoliosis is noted with diffuse spondylosis. The sacrum and sacroiliac joints are intact. There is a moderate to large volume of colonic stool. XR/XR lumbar spine 2-3V IMPRESSION: 1. No acute lumbar spine findings. Extensive chronic changes are described above. 2. Moderate to large colonic stool volume. Electronically authenticated by: SAIRA JOSEPH Date: 08/17/2023 02:37
--- NOTE | 2023-08-17 01:41 | ED_ITS ---
HPI HPI - Back Pain/Injury General Chief Complaint: Back Pain/Injury Stated Complaint: back pain Time Seen by Provider: 08/17/23 01:36 Source: patient and EMR Mode of arrival: ambulance Limitations: no limitations History of Present Illness HPI Narrative: 57-year-old female presents for lower back pain. It started just over 24 hours ago and it goes all the way across her lower back. No dysuria or hematuria and it does not radiate into her legs. She has had 3 back surgeries. There is been no new trauma. Upper back does not hurt and the pain is moderate to severe and worse in certain positions. Related Data Home Medications ?Medication ?Instructions ?Recorded ?Confirmed alendronate 70 mg tablet 70 mg PO QWEEK 07/20/22 08/17/23 allopurinol 300 mg tablet 300 mg PO DAILY 07/20/22 08/17/23 aspirin 81 mg tablet,delayed 81 mg PO DAILY 07/20/22 08/17/23 release (Adult Aspirin Regimen) cholecalciferol (vitamin D3) 25 1,000 unit PO DAILY 07/20/22 08/17/23 mcg (1,000 unit) capsule diclofenac sodium 75 mg 75 mg PO BID 07/20/22 08/17/23 tablet,delayed release divalproex 500 mg tablet,delayed 500 mg PO BID 07/20/22 08/17/23 release (Depakote) glucosamine [id number] 1 tab PO DAILY 07/20/22 08/17/23 krzysztof 1,500 mg-400 unit-100 mg tablet (Osteo Bi-Flex (5-Loxin)) glyburide 1.25 mg tablet 1.25 mg PO DAILY 07/20/22 08/17/23 lactobacillus combo no.13 1 1 cap PO DAILY 07/20/22 08/17/23 billion cell capsule,delayed release (Probiotic Pearls Complete) multivitamin 1 tab PO DAILY 07/20/22 08/17/23 oxycodone-acetaminophen 5 mg-325 1 tab PO DAILY 07/20/22 08/17/23 mg tablet prasterone (dhea) 50 mg capsule 50 mg PO DAILY 07/20/22 08/17/23 (DHEA) pregabalin 50 mg capsule (Lyrica) 50 mg PO .q am 07/20/22 08/17/23 famotidine 20 mg tablet 20 mg PO BID 06/08/23 08/17/23 metformin 1,000 mg tablet 1,000 mg PO BID 06/08/23 08/17/23 pregabalin 100 mg capsule (Lyrica) 100 mg PO .q hs 06/08/23 08/17/23 rizatriptan 10 mg tablet 10 mg PO Q2H PRN migraine headache 06/08/23 08/17/23 rosuvastatin 20 mg tablet 20 mg PO DAILY 06/08/23 08/17/23 semaglutide 0.25 mg or 0.5 mg (2 0.25 mg subcut .once a week 06/08/23 08/17/23 mg/3 mL) subcutaneous pen injector (Ozempic) Previous Rx's ?Medication ?Instructions ?Recorded methocarbamol 750 mg tablet 750 mg PO .QHS #30 tabs 05/22/23 baclofen 10 mg tablet 10 mg PO Q8H PRN muscle spasm #20 08/17/23 tabs Allergies Allergy/AdvReac Type Severity Reaction Status Date / Time No Known Drug Allergies Allergy Verified 08/17/23 01:36 Opioid HPI Opioid Management Most Recent Opioid Data: Last Pain Scale 10 08/17/23 01:54 Last MAR Pain Assessment 08/17/23 01:54 Last ORT Total Score 0 06/08/23 18:51 Last ORT Risk Category Low Risk 06/08/23 18:51 Review of Systems ROS Narrative A ten point review of systems is negative except as noted above. PFSH PFSH Medical History Migraine headache ?G43.909 - Migraine, unspecified, not intractable, without status migrainosus (ICD-10) Hyperlipidemia ?E78.5 - Hyperlipidemia, unspecified (ICD-10) Iron deficiency anemia ?D50.9 - Iron deficiency anemia, unspecified (ICD-10) Lumbar radiculopathy ?M54.16 - Radiculopathy, lumbar region (ICD-10) HTN (hypertension) ?I10 - Essential (primary) hypertension (ICD-10) Chronic prescription opiate use ?Z79.891 - salvage determiner (current) use of opiate analgesic (ICD-10) Sacroiliac joint pain ?M53.3 - Sacrococcygeal disorders, not elsewhere classified (ICD-10) Lumbar spondylosis ?M47.816 - Spondylosis without myelopathy or radiculopathy, lumbar region (ICD-10) Muscle spasm ?M62.838 - Other muscle spasm (ICD-10) Cervical spondylosis ?M47.812 - Spondylosis without myelopathy or radiculopathy, cervical region (ICD-10) Lumbar stenosis with neurogenic claudication ?M48.062 - Spinal stenosis, lumbar region with neurogenic claudication (ICD- 10) Compression fracture of L1 vertebra ?S32.010A - Wedge compression fracture of first lumbar vertebra, initial encounter for closed fracture (ICD-10) Tubal ?O00.109 - Unspecified tubal without intrauterine (ICD-10 ) TMJ (dislocation of temporomandibular joint) ?S03.00XA - Dislocation of jaw, unspecified side, initial encounter (ICD-10) Upper back pain ?M54.9 - Dorsalgia, unspecified (ICD-10) Back pain ?M54.9 - Dorsalgia, unspecified (ICD-10) Neck pain ?M54.2 - Cervicalgia (ICD-10) Osteoarthritis ?M19.90 - Unspecified osteoarthritis, unspecified site (ICD-10) Obesity ?E66.9 - Obesity, unspecified (ICD-10) Heartburn ?R12 - Heartburn (ICD-10) Acid reflux ?K21.9 - Gastro-esophageal reflux disease without esophagitis (ICD-10) Diabetes ?E11.9 - Type 2 diabetes mellitus without complications (ICD-10) Smoker ?F17.200 - Nicotine dependence, unspecified, uncomplicated (ICD-10) Surgical History S/P lumbar spine operation ?Z98.890 - Other specified postprocedural states (ICD-10) H/O: hysterectomy ?Z90.710 - Acquired absence of both cervix and uterus (ICD-10) Family History (Updated 06/08/23 @ 19:39 by Tere Sun) Mother Family history of CHF (congestive heart failure) Family history of cancer Family history of diabetes mellitus Family history of hypertension Family history of myocardial infarction Social History (Updated 06/08/23 @ 19:41 by Tere Sun) Within the past year, how often did you have a drink containing alcohol: monthly or less Smoking status: Light tobacco smoker Non-prescribed substance use: denies use Previous occupational history: retired/disability Highest level of school completed/degree received: some college, no degree Are you now , , , , never or living with a partner: In a typical week, how many times do you talk on the telephone with family, friends, or neighbors: 3 or more times per week How often do you get together with friends or relatives: 3 or more times per week How often do you attend jehovah's witness or sabianism services: never Little interest or pleasure in doing things: not at all Feeling down, depressed, or hopeless: not at all Feel stressed/tense/nervous/anxious/difficulty sleeping: not at all Do you think of yourself as: straight/heterosexual Gender Identity: female Exam Narrative Exam Narrative: Nurses note and vital signs reviewed and patient is not hypoxic. General: The patient appears uncomfortable Skin: Warm, dry, no pallor noted. There is no rash noted. Head: Normocephalic, atraumatic Eye: Normal conjunctiva, no drainage Ears, Nose, Mouth, and Throat: oral mucosa is moist. Nares patent. Cardiovascular: Regular Rate and Rhythm Respiratory: Patient is in no distress, no accessory muscle use, lungs are clear to auscultation, no wheezing, rales or rhonchi Back: non-tender GI: Soft and nontender Musculoskeletal: The patient has no evidence of calf tenderness, no pitting edema, symmetrical pulses noted bilaterally Neurological: A&O, normal speech Psychiatric: Cooperative Constitutional Vital Signs, click to edit/add: Last Vital Signs Pulse 113 H 08/17/23 01:33 Resp 22 H 08/17/23 01:33 BP 113/92 H 08/17/23 01:33 Pulse Ox 96 08/17/23 01:33 O2 Del Method Room Air 08/17/23 01:33 Course Vital Signs Vital signs: Vital Signs Pulse Rate 113 H 08/17/23 01:33 Respiratory Rate 22 H 08/17/23 01:33 Blood Pressure 113/92 H 08/17/23 01:33 Pulse Oximetry 96 08/17/23 01:33 Oxygen Delivery Method Room Air 08/17/23 01:33 Pulse Rate 113 H 08/17/23 01:33 Respiratory Rate 22 H 08/17/23 01:33 Blood Pressure 113/92 H 08/17/23 01:33 Pulse Oximetry 96 08/17/23 01:33 Oxygen Delivery Method Room Air 08/17/23 01:33 MDM - Back Pain/Injury MDM Narrative Medical decision making narrative: Her workup including x-rays and urinalysis is negative. She is feeling improved and will be discharged home. She is on Percocet at home. Treatment diagnosis and follow-up were discussed with the patient. Differential Diagnosis Differential diagnosis: Likely lumbar radiculopathy, sciatica and strain of lumbar region Lab Data Attestation: I reviewed the patient's lab results. Labs: Lab Results 08/17/23 Range/Units 02:04 Urine Color Lt. yellow (YELLOW) Urine Clarity Clear (CLEAR) Urine pH 6.0 (5.0-9.0) Ur Specific [place] <=1.005 A (1.005-1.025) Urine Protein Negative (NEG/TRACE) mg/dL Urine Glucose (UA) Negative (NEGATIVE) mg/dL Urine Ketones Negative (NEGATIVE) mg/dL Urine Occult Blood Negative (NEGATIVE) Urine Nitrite Negative (NEGATIVE) Urine Bilirubin Negative (NEGATIVE) Urine Urobilinogen 0.2 (0.2-1.0) EU/dL Ur Leukocyte Esterase Negative (NEGATIVE) Urine RBC 0-2 (0-2) #/HPF Urine WBC None seen (NONE SEEN) #/HPF Ur Squamous Epith Cells Few A (NONE/RARE) #/LPF Urine Crystals None seen (None Seen) #/HPF Urine Bacteria None seen (NONE SEEN) #/HPF Urine Casts None seen (NONE SEEN) #/LPF Urine Mucus None seen (NONE SEEN) Ur Culture Indicated? No Imaging Data Lumbar x-rays: Radiologist's impression: ITS Impressions Lumbar Spine X-Ray 08/17/23 01:40 IMPRESSION: 1. No acute lumbar spine findings. Extensive chronic changes are described above. 2. Moderate to large colonic stool volume. Electronically authenticated by: SAIRA JOSEPH Date: 08/17/2023 02:37 Discharge Plan Discharge Stand Alone Forms: Portal Instructions Chief Complaint: Back Pain/Injury Clinical Impression: Acute exacerbation of chronic low back pain Patient Disposition: Home, Self-Care Time of Disposition Decision: 02:48 Condition: Good Mode of Transportation: Private Vehicle Prescriptions / Home Meds: New baclofen 10 mg tablet 10 mg PO Q8H PRN (Reason: muscle spasm) Qty: 20 0RF No Action alendronate 70 mg tablet 70 mg PO QWEEK allopurinol 300 mg tablet 300 mg PO DAILY aspirin [Adult Aspirin Regimen] 81 mg tablet,delayed release (DR/EC) 81 mg PO DAILY DHEA 50 mg capsule 50 mg PO DAILY divalproex [Depakote] 500 mg tablet,delayed release (DR/EC) 500 mg PO BID pregabalin [Lyrica] 50 mg capsule 50 mg PO .q am multivitamin Tablet 1 tab PO DAILY [id number] serr [Osteo Bi-Flex (5-Loxin)] 1,500-400-100 mg-unit-mg tablet 1 tab PO DAILY Rx Instructions: give after food/meal Probiotic Pearls Complete 1 billion cell capsule,delayed release(DR/EC) 1 cap PO DAILY cholecalciferol (vitamin D3) 25 mcg (1,000 unit) capsule 1,000 unit PO DAILY diclofenac sodium 75 mg tablet,delayed release (DR/EC) 75 mg PO BID glyburide 1.25 mg tablet 1.25 mg PO DAILY oxycodone-acetaminophen 5-325 mg tablet 1 tab PO DAILY methocarbamol 750 mg tablet 750 mg PO .QHS Qty: 30 2RF famotidine 20 mg tablet 20 mg PO BID metformin 1,000 mg tablet 1,000 mg PO BID rizatriptan 10 mg tablet 10 mg PO Q2H PRN (Reason: migraine headache) rosuvastatin 20 mg tablet 20 mg PO DAILY Ozempic 0.25 mg or 0.5 mg (2 mg/3 mL) pen injector 0.25 mg SUBCUT .once a week pregabalin [Lyrica] 100 mg capsule 100 mg PO .q hs Print Language: [place] Instructions: Chronic Pain (ED), Acute Low Back Pain (ED) Additional Instructions: Do not take Robaxin and baclofen together Referrals: Shaikh Connelly MD [Primary Care Provider] - 1 week
[2023-08-17] MEDS: ORPHENADRINE 60 MG/ 2 ML VIAL IM (01:53)
[2023-08-17] MEDS: KETOROLAC TROMETHAMINE 60 MG/2 ML VIAL IM (01:54)
[2023-08-17 02:10] LABS: Bilirubin Urine NEGATIVE (NEGATIVE); Blood Urine NEGATIVE (NEGATIVE); Clarity Urine CLEAR (CLEAR); Color Urine LT. YELLOW (YELLOW); Glucose Urine UA NEGATIVE (NEGATIVE); Ketones Urine NEGATIVE (NEGATIVE); Leukocyte Esterase Urine NEGATIVE (NEGATIVE); Nitrite Urine NEGATIVE (NEGATIVE); Protein Urine NEGATIVE (NEG/TRACE); Specific Gravity Urine <=1.005 (1.005-1.025); Urobilinogen Urine 0.2 EU/dL (0.2-1.0)
[2023-08-17 02:15] LABS: Bacteria Urine NONE SEEN #/HPF (NONE SEEN); Cast Seen? NONE SEEN #/LPF (NONE SEEN); Crystals Seen? None Seen #/HPF (None Seen); Mucus Urine NONE SEEN (NONE SEEN); RBC Urine 0-2 #/HPF (0-2); Squamous Epithelial Cell Urine FEW #/LPF (NONE/RARE); Urine Culture Indicated NO; WBC Urine NONE SEEN #/HPF (NONE SEEN)
[2023-08-17] MEDS: MORPHINE SULFATE 4 MG/ML VIAL 10 MG IM (03:11)
[2023-08-17 03:54] LABS: Basophils Absolute Auto 0.1 10^3/uL (0.0-0.1); Basophils Percent Auto 0.3 % (0.2-2.0); Eosinophils Absolute Auto 0.2 10^3/uL (0.0-0.7); Eosinophils Percent Auto 1.4 % (0.9-7.0); Hemoglobin 13.4 g/dL (12.0-16.0); Immature Granulocytes Abs Auto 0.15 10^3/uL (0.00-0.03); Lymphocytes Absolute Auto 2.7 10^3/uL (1.2-3.8); Lymphocytes Percent Auto 17.4 % (20.5-60.0); Mean Corpuscular HGB Conc 32.7 g/dL (29.9-35.2); Mean Corpuscular Hemoglobin 30.7 pg (26.7-34.0); Mean Corpuscular Volume 93.8 fL (81.0-99.0); Mean Platelet Volume 10.5 fL (9.5-13.5); Monocytes Absolute Auto 1.2 10^3/uL (0.3-0.8); Monocytes Percent Auto 7.9 % (1.7-12.0); Neutrophils Absolute Auto 11.1 10^3/uL (1.4-6.5); Platelet Count 254 10^3/uL (150-450); Red Blood Count 4.37 10^6/uL (4.20-5.40); Red Cell Distribution Width 14.8 % (11.0-15.0); White Blood Count 15.4 10^3/uL (4.0-11.0)
[2023-08-17 04:03] LABS: Anion Gap 9.8; BUN Creatinine Ratio 20.8; Calcium 10.1 mg/dL (8.5-10.1); Carbon Dioxide 30.8 mmol/L (21.0-32.0); Chloride 98 mmol/L (98-107); Estimated GFR (African America >60 (>=60); Estimated GFR (Non-African Ame 56 (>=60); Glucose 125 mg/dL (74-106); Potassium 3.6 mmol/L (3.5-5.1); Sodium 135 mmol/L (136-145)
[2023-08-17] MEDS: MORPHINE SULFATE 4 MG/ML VIAL IV (04:18)
--- OUTSIDE RECORDS SUMMARY | 2023-08-17 04:40 | XMS_ITS | CCD ---
Author Organization [facility] Care Team Providers Care Braddisher Name Role Phone House DO, Sr Jonathan [...] Unavailable HOUSE, DR BASURTO Primary Care Unavailable GAETAON, DR PATTIE Nieves Consulting Unavailable PIERCE ., [...] Nieves Consulting Unavailable SUSSY JONES Consulting Unavailable RIVERSIDE, DR BASURTO Attending Unavailable RIVERSIDE, DR BASURTO Primary Care Unavailable RIVERSIDE, DR BASURTO Admitting Unavailable RIVERSIDE, DR JONATHAN Trimble Unavailable RIVERSIDE, DR BASURTO Primary Care Unavailable GAETANO, DR PATTIE Nieves Consulting Unavailable LAKSHMIPATHY ., NARENDSABAS Admitting Nellie vailable LAKSHMIPATHY ., DEMETRIUSATH Attending Nellie vailable LAKSHMIPATHY ., BILLY Consulting Nellie vailable RIVERSIDE, DR BASURTO Admitting Unavailable RIVERSIDE, DR BASURTO Attending Unavailable RIVERSIDE, DR BASURTO Primary Care Unavailable ALICEVILLE, DR RYAN Guzman Consulting Unavailable RIVERSIDE, DR JONATHAN Trimble Unavailable HOLM ., DR [...] Consulting Unavailable PIERCE ., CRYS Trimble Unavailable RIVERSIDE, DR BASURTO Primary Care Unavailable HOLM ., DR RICARDO Belcher Admitting Unavailable HOLM ., DR RICARDO Belcher Attending Unavailable LAKSHMIPATHY ., BILLY Consulting Nellie vailable RIVERSIDE, DR BASURTO Primary Care Unavailable HOLM ., [...] 12, 2017 1:00am January 15, 2017 2:23pm Qgpkleikdokg-Aw-Unk n-Minerals (Multiple Vitamin, Womens) Tablet (1 source) Start: 01-12-2017 End: 01-15-2017 Jgzfxgajyqig-Ao-Cb on-Minerals (Multiple Vitamin, Womens) Tablet Discontinued PO [...] PATTIE SALTER Date: 2022-06-07 11:15 Normal [facility] CBC AUTO DIFFon 04-12-2022 BASO # 0.1 103/ul Normal 0.0-0.1 [facility] Comment on above: Performed By: #### C BC ####[facility] [address] [place] [address]Dr. Ricky Valenzuela Basophils/100 WBC (Bld) 0.5 % Normal 0.2-2.0 [facility] Comment on above: Performed By: #### C BC ####[facility] [address] [place], [place] [address]Dr. Ricky Valenzuela EO # 0.3 103/ul Normal 0.0-0.7 [facility] Comment on above: Performed By: #### C BC ####[facility] [address] [place] [address]Dr. Ricky Valenzuela Eosinophils/100 WBC (Bld) 3.0 % Normal 0.9-7.0 [facility] Comment on above: Performed By: #### C BC ####[facility] [address] [place], [place] [address]Dr. Ricky Valenzuela Erythrocyte distribution width (RBC) [Ratio] 14.8 % Normal 11.0-15.0 [facility] Comment on above: Performed By: #### C BC ####[facility] [address] [place], [place] [address]Dr. Ricky Valenzuela Hematocrit (Bld) [Volume fraction] 40.6 % Normal 36.0-48.0 [facility] Comment on above: Performed By: #### C BC ####[facility] [address] [place], [place] [address]Dr. Ricky Valenzuela Hemoglobin (Bld) [Mass/Vol] 13.5 g/dL Normal 12.0-16.0 [facility] Comment on above: Performed By: #### C BC ####[facility] [address] [place] [id number]. Ricky Valenzuela IG # 0.16 10e3/ul Critically high 0.00-0.03 [facility] Comment on above: Performed By: #### C BC ####[facility] [address] [place] [id number]. Ricky Valenzuela IG % 1.4 % Critically high 0.0-0.5 [facility] Comment on above: Performed By: #### C BC ####[facility] [address] [place] [address]Dr. Ricky Valenzuela LYMPH # 3.4 103/ul Normal 1.2-3.8 [facility] Comment on above: Performed By: #### C BC ####[facility] [address] [place] [address]Dr. Lesleysharron Valenzuela Lymphocytes/100 WBC (Bld) 30.4 % Normal 20.5-60.0 [facility] Comment on above: Performed By: #### C BC ####[facility] [address] [place] [address]Dr. Ricky Valenzuela MANUAL DIFF REQ NO Normal [facility] Comment on above: Performed By: #### C BC ####[facility] [address] [place], [place] [address]Dr. Ricky Valenzuela MCH (RBC) [Entitic mass] 31.8 pg Normal 26.7-34.0 [facility] Comment on above: Performed By: #### C BC ####[facility] [address] [place], [place] [address]Dr. Ricky Valenzuela MCHC (RBC) [Mass/Vol] 33.3 g/dL Normal 29.9-35.2 [facility] Comment on above: Performed By: #### C BC ####[facility] [address] [place], [place] [address]Dr. Ricky Valenzuela MCV (RBC) [Entitic vol] 95.5 fL Normal 81.0-99.0 [facility] Comment on above: Performed By: #### C BC ####[facility] [address] [place], [place] [address]Zo. Ricky Valenzuela MONO # 0.9 103/ul Critically high 0.3-0.8 [facility] Comment on above: Performed By: #### C BC ####[facility] [address] [place] [phone]. Ricky Valenzuela Monocytes/100 WBC (Bld) 7.7 % Normal 1.7-12.0 [facility] Comment on above: Performed By: #### C BC ####[facility] [address] [place] [phone]. Ricky Valenzuela NEUT # 6.3 103/ul Normal 1.4-6.5 [facility] Comment on above: Performed By: #### C BC ####[facility] [address] [place] [phone]. Ricky Valenzuela Neutrophils/100 WBC (Bld) 57.0 % Normal 43.0-75.0 [facility] Comment on above: Performed By: #### C BC ####[facility] [address] [place] [phone]. Ricky Valenzuela Platelet mean volume (Bld) [Entitic vol] 9.8 fL Normal 9.5-13.5 [facility] Comment on above: Performed By: #### C BC ####[facility] [address] [place] [phone]. Ricky Valenzuela PLT 246 103/ul Normal 150-450 [facility] Comment on above: Performed By: #### C BC ####[facility] [address] [place] [phone]. Ricky Valenzuela RBC 4.25 106/ul Normal 4.20-5.40 [facility] Comment on above: Performed By: #### C BC ####[facility] [address] [place] [phone]. Ricky Valenzuela WBC 11.1 103/ul Critically high 4.0-11.0 [facility] Comment on above: Performed By: #### C BC ####[facility] [address] [place] [phone] Valenzuela GLYCOHEMOGLOBIN A1Con 2022 ADA RECOMMENDATION SEE BELOW Normal [facility] Comment on above: Result Comment: ADA RECOMMENDED LIMIT 4.0 - 6.0 ADA THERAPEUTIC TARGET < 7.0 ACTION SUGGESTED > 7.0 Performed By: #### A 1C ####[facility] [address] [place] [address]DrPasquale Valenzuela Glucose [Mass/Vol] 160 mg/dL Normal [facility] Comment on above: Performed By: #### A 1C ####[facility] [address] [place] [address]DrPasquale Valenzuela HbA1c (Bld) [Mass fraction] 7.2 % Critically high 4.5-6.2 [facility] Comment on above: Performed By: #### A 1C ####[facility] [address] [place] [address]DrPasquale Valenzuela MICROALBUMIN, RAND URon - mALB <1.3 Normal <=30.0 [facility] Comment on above: Performed By: #### M ALBR #### [facility] [address] [place] [address] Dr. Ricky Valenzuela PROF 14(COMP METB)on 023 Albumin [Mass/Vol] 3.3 g/dL Critically low 3.4-5.0 [facility] Comment on above: Performed By: #### C MP #### [facility] [address] [place] [address] [address] Ricky Valenzuela Albumin/Globulin [Mass ratio] 0.9 {ratio} Normal [facility] Comment on above: Performed By: #### C MP #### [facility] [address] [place] [address] [address] Ricky Valenzuela ALP [Catalytic activity/Vol] 90 U/L Normal 46-116 [facility] Comment on above: Performed By: #### C MP #### [facility] [address] [place] [address] [address] Ricky Valenzuela ALT [Catalytic activity/Vol] 42 U/L Normal 14-59 [facility] Comment on above: Performed By: #### C MP #### [facility] [address] [place] [address] [address] Ricky Valenzuela Anion gap [Moles/Vol] 10.1 mmol/L Normal Th e [facility] Comment on above: Performed By: #### C MP #### [facility] [address] [place] [address] [address] Ricky Valenzuela AST [Catalytic activity/Vol] 21 U/L Normal 15-37 [facility] Comment on above: Performed By: #### C MP #### [facility] [address] [place] [address] [address] Ricky Valenzuela Bilirubin [Mass/Vol] 0.3 mg/dL Normal 0.2-1.0 [facility] Comment on above: Performed By: #### C MP #### [facility] [address] [place] [address] [address] Ricky Valenzuela Calcium [Mass/Vol] 9.8 mg/dL Normal 8.5-10.1 [facility] Comment on above: Performed By: #### C MP #### [facility] [address] [address] [address] Ricky Valenzuela Chloride [Moles/Vol] 99 mmol/L Normal 98-107 [facility] Comment on above: Performed By: #### C MP #### [facility] [address] [place] [address] [address] Ricky Valenzuela CO2 [Moles/Vol] 33.7 mmol/L Critically high 21.0-32.0 [facility] Comment on above: Performed By: #### C MP #### [facility] [address] [address] [address] Ricky Valenzuela Creatinine [Mass/Vol] 0.94 mg/dL Normal 0.55-1.02 [facility] Comment on above: Performed By: #### C MP #### [facility] [address] [address] [address] Ricky Valenzuela EGFR-AF MONTSERRATIAN >60 Normal >=60 [facility] Comment on above: Performed By: #### C MP #### [facility] [address] [place] [address] [address] Ricky Valenzuela EGFR-NON AF [place]TS[place]IAN >60 Normal >=60 [facility] Comment on above: Performed By: #### C MP #### [facility] [address] [address] [address] Ricky Valenzuela Globulin (S) [Mass/Vol] 3.8 g/dL Normal [facility] Comment on above: Performed By: #### C MP #### [facility] [address] [address] [address] Ricky Valenzuela Glucose [Mass/Vol] 168 mg/dL Critically high 74-106 [facility] Comment on above: Performed By: #### C MP #### [facility] [address] [address] [address] Ricky Valenzuela Potassium [Moles/Vol] 4.8 mmol/L Normal 3.5-5.1 [facility] Comment on above: Performed By: #### C MP #### [facility] [address] [address] [address] Ricky Valenzuela Protein [Mass/Vol] 7.1 g/dL Normal 6.4-8.2 [facility] Comment on above: Performed By: #### C MP #### [facility] [address] [place] [address] Dr. Ricky Valenzuela Sodium [Moles/Vol] 138 mmol/L Normal 136-145 [facility] Comment on above: Performed By: #### C MP #### [facility] [address] [address] [address] Ricky Valenzuela Urea nitrogen [Mass/Vol] 22.0 mg/dL Critically high 7.0-18.0 [facility] Comment on above: Performed By: #### C MP #### [facility] [address] [place] [address] Dr. Ricky Valenzuela Urea nitrogen/Creatinine [Mass ratio] 23.4 mg/mg Normal [facility] Comment on above: Performed By: #### C MP #### [facility] [address] [address] [address] Ricky Valenzuela Cytologyon 08-30-2021 Cytology (NOTE) INTERPRETATION Vaginal material, (ThinPrep vial, Imaging-assisted review): Specimen Adequacy: Satisfactory for evaluation. Descriptive Diagnosis: Negative for intraepithelial lesion or malignancy. Manager [employer]: CLARK Delacruz(ASCP) Electronically Signed Out /09/07/2021 Source: A: Vaginal material, (ThinPrep vial, Imaging-assisted review) Clinical History Hysterectomy Surgery: Salpingostomy; Ovary removal Z12.4 Encounter for screening for malignant neoplasm of cervix GYNECOLOGIC CYTOLOGY REPORT Patient Name: KARINA DE OLIVEIRA [facility] Rec: [id number] Path Number: [id number] [facility] CONSULTING PATHOLOGISTS [facility] [address] [place] [phone] Normal [facility] Comment on above: Performed By: #### P PPVP #### [address] [id number] Manager Of Medical: Luca Cummins MD CBC AUTO DIFFon 08-09-2021 BASO # 0.1 103/ul Normal 0.0-0.1 [facility] Comment on above: Performed By: #### C BC #### [facility] [address] [address] [address] Ricky Valenzuela Basophils/100 WBC (Bld) 0.8 % Normal 0.2-2.0 [facility] Comment on above: Performed By: #### C BC #### [facility] [address] [address] [address] Ricky Valenzuela EO # 0.2 103/ul Normal 0.0-0.7 [facility] Comment on above: Performed By: #### C BC #### [facility] [address] [address] [address] Ricky Valenzuela Eosinophils/100 WBC (Bld) 2.1 % Normal 0.9-7.0 [facility] Comment on above: Performed By: #### C BC #### [facility] [address] [place] [address] Dr. Ricky Valenzuela Erythrocyte distribution width (RBC) [Ratio] 15.2 % Critically high 11.0-15.0 [facility] Comment on above: Performed By: #### C BC #### [facility] [address] [place] [address] Dr. Ricky Valenzuela Hematocrit (Bld) [Volume fraction] 41.5 % Normal 36.0-48.0 [facility] Comment on above: Performed By: #### C BC #### [facility] [address] [place] [address] Dr. Ricky Valenzuela Hemoglobin (Bld) [Mass/Vol] 13.5 g/dL Normal 12.0-16.0 [facility] Comment on above: Performed By: #### C BC #### [facility] [address] [place] [address] Dr. Ricky Valenzuela IG # 0.42 10e3/ul Critically high 0.00-0.03 [facility] Comment on above: Performed By: #### C BC #### [facility] [address] [place] [address] Dr. Ricky Valenzuela IG % 3.8 % Critically high 0.0-0.5 [facility] Comment on above: Performed By: #### C BC #### [facility] [address] [place] [address] Dr. Ricky Valenzuela LYMPH # 3.3 103/ul Normal 1.2-3.8 [facility] Comment on above: Performed By: #### C BC #### [facility] [address] [place] [address] Dr. Ricky Valenzuela Lymphocytes/100 WBC (Bld) 29.1 % Normal 20.5-60.0 [facility] Comment on above: Performed By: #### C BC #### [facility] [address] [place] [address] Dr. Ricky Valenzuela MANUAL DIFF REQ NO Normal [facility] Comment on above: Performed By: #### C BC #### [facility] [address] [place] [address] Dr. Ricky Valenzuela MCH (RBC) [Entitic mass] 32.4 pg Normal 26.7-34.0 [facility] Comment on above: Performed By: #### C BC #### [facility] [address] [place] [address] Dr. Ricky Valenzuela MCHC (RBC) [Mass/Vol] 32.5 g/dL Normal 29.9-35.2 [facility] Comment on above: Performed By: #### C BC #### [facility] [address] [place] [address] Dr. Ricky Valenzuela MCV (RBC) [Entitic vol] 99.5 fL Critically high 81.0-99.0 [facility] Comment on above: Performed By: #### C BC #### [facility] [address] [place] [address] Dr. Ricky Valenzuela MONO # 0.8 103/ul Normal 0.3-0.8 [facility] Comment on above: Performed By: #### C BC #### [facility] [address] [place] [address] Dr. Ricky Valenzuela Monocytes/100 WBC (Bld) 7.5 % Normal 1.7-12.0 [facility] Comment on above: Performed By: #### C BC #### [facility] [address] [place] [address] Dr. Ricky Valenzuela NEUT # 6.3 103/ul Normal 1.4-6.5 [facility] Comment on above: Performed By: #### C BC #### [facility] [address] [place] [address] Dr. Ricky Valenzuela Neutrophils/100 WBC (Bld) 56.7 % Normal 43.0-75.0 [facility] Comment on above: Performed By: #### C BC #### [facility] [address] [place] [address] Dr. Ricky Valenzuela Platelet mean volume (Bld) [Entitic vol] 9.8 fL Normal 9.5-13.5 [facility] Comment on above: Performed By: #### C BC #### [facility] [address] [place] [address] Dr. Ricky Valenzuela PLT 265 103/ul Normal 150-450 [facility] Comment on above: Performed By: #### C BC #### [facility] [address] [address] [address] Ricky Valenzuela RBC 4.17 106/ul Critically low 4.20-5.40 [facility] Comment on above: Performed By: #### C BC #### [facility] [address] [address] [address] Ricky Valenzuela WBC 11.2 103/ul Critically high 4.0-11.0 [facility] Comment on above: Performed By: #### C BC #### [facility] [address] [address] [address] Ricky Valenzuela GLYCOHEMOGLOBIN A1Con 2021 ADA RECOMMENDATION SEE BELOW Normal [facility] Comment on above: Result Comment: ADA RECOMMENDED LIMIT 4.0 - 6.0 ADA THERAPEUTIC TARGET < 7.0 ACTION SUGGESTED > 7.0 Performed By: #### A 1C ####[facility] [address] [place] [address]Dr. Ricky Valenzuela Glucose [Mass/Vol] 183 mg/dL Normal [facility] Comment on above: Performed By: #### A 1C ####[facility] [address] [place] [id number]. Ricky Valenzuela HbA1c (Bld) [Mass fraction] 8.0 % Critically high 4.5-6.2 [facility] Comment on above: Performed By: #### A 1C ####[facility] [address] [place] [id number]. Ricky Valenzuela LIPID PROFILEon 08-09-2021 CHOL-HDL RATIO NORM SEE BELOW Normal [facility] Comment on above: Result Comment: 3.3 - 4.4 LOW RISK 4.4 - 7.1 AVERAGE RISK 7.1 - 11.0 MODERATE RISK >11.0 HIGH RISK Performed By: #### C MP, LIPID #### [facility] [address] [address] [address] Ricky Valenzuela Cholesterol [Mass/Vol] 239 mg/dL Critically high <=200 [facility] Comment on above: Performed By: #### C MP, LIPID #### [facility] [address] [address] [address] Ricky Valenzuela Cholesterol in HDL [Mass/Vol] 36 mg/dL Critically low 40-60 [facility] Comment on above: Performed By: #### C MP, LIPID #### [facility] [address] [address] [address] Ricky Valenzuela Cholesterol in LDL [Mass/Vol] 164.2 mg/dL Normal [facility] Comment on above: Performed By: #### C MP, LIPID #### [facility] [address] [address] [address] Ricky Valenzuela Cholesterol.total/Cho lesterol in HDL [Mass ratio] 6.6 {ratio} Normal [facility] Comment on above: Performed By: #### C MP, LIPID #### [facility] [address] [address] [address] Ricky Valenzuela HDL NORMAL > or = 60 mg/dl - LO W CARDIOVASCULAR RISK <40 mg/dl - HIGH CARDIOVASCULAR RISK Normal [facility] Comment on above: Performed By: #### C MP, LIPID #### [facility] [address] [address] [address] Ricky Valenzuela LDL CALC NORMAL SEE BELOW Normal [facility] Comment on above: Result Comment: <100 mg/dl OPTIMAL 100 - 129 mg/dl NEAR OR ABOVE OPTIMAL 130 - 159 mg/dl BORDERLINE HIGH 160 - 189 mg/dl HIGH >190 mg/dl VERY HIGH Performed By: #### C MP, LIPID #### [facility] [address] [address] [address] Ricky Valenzuela Triglyceride [Mass/Vol] 194 mg/dL Critically high <=150 [facility] Comment on above: Performed By: #### C MP, LIPID #### [facility] [address] [place] [address] Dr. Ricky Valenzuela VLDL CALC 38.8 mg/dL Normal [facility] Comment on above: Performed By: #### C MP, LIPID #### [facility] [address] [address] [address] Ricky Valenzuela MICROALBUMIN, RAND URon 07-13 mALB 13.1 mg/L Normal <=30.0 [facility] Comment on above: Performed By: #### M ALBR ####[facility] [address] [place], [place] [address]GqDr. Ricky Valenzuela PROF 14(COMP METB)on 022 Albumin [Mass/Vol] 3.3 g/dL Critically low 3.4-5.0 [facility] Comment on above: Performed By: #### C MP, LIPID #### [facility] [address] [address] [address] Ricky Valenzuela Albumin/Globulin [Mass ratio] 0.8 {ratio} Normal [facility] Comment on above: Performed By: #### C MP, LIPID #### [facility] [address] [place] [address] Dr. Ricky Valenzuela ALP [Catalytic activity/Vol] 93 U/L Normal 46-116 [facility] Comment on above: Performed By: #### C MP, LIPID #### [facility] [address] [address] [address] Ricky Valenzuela ALT [Catalytic activity/Vol] 37 U/L Normal 14-59 [facility] Comment on above: Performed By: #### C MP, LIPID #### [facility] [address] [address] [address] Ricky Valenzuela Anion gap [Moles/Vol] 10.9 mmol/L Normal [facility] Comment on above: Performed By: #### C MP, LIPID #### [facility] [address] [address] [address] Ricky Valenzuela AST [Catalytic activity/Vol] 10 U/L Critically low 15-37 [facility] Comment on above: Performed By: #### C MP, LIPID #### [facility] [address] [address] [address] Ricky Valenzuela Bilirubin [Mass/Vol] 0.2 mg/dL Normal 0.2-1.0 [facility] [facility] Comment on above: Performed By: #### C MP, LIPID #### [facility] [address] [address] [address] Ricky Valenzuela Calcium [Mass/Vol] 9.0 mg/dL Normal 8.5-10.1 [facility] Comment on above: Performed By: #### C MP, LIPID #### [facility] [address] [address] [address] Ricky Valenzuela Chloride [Moles/Vol] 100 mmol/L Normal 98-107 [facility] Comment on above: Performed By: #### C MP, LIPID #### [facility] [address] [address] [address] Ricky aVlenzuela CO2 [Moles/Vol] 32.2 mmol/L Critically high 21.0-32.0 [facility] Comment on above: Performed By: #### C MP, LIPID #### [facility] [address] [place] [address] Dr. Ricky Valenzuela Creatinine [Mass/Vol] 0.95 mg/dL Normal 0.55-1.02 [facility] Comment on above: Performed By: #### C MP, LIPID #### [facility] [address] [place] [address] Dr. Ricky Valenzuela EGFR-AF MONTSERRATIAN >60 Normal >=60 [facility] Comment on above: Performed By: #### C MP, LIPID #### [facility] [address] [place] [address] Dr. Ricky Valenzuela EGFR-NON AF MONTSERRATIAN >60 Normal >=60 [facility] Comment on above: Performed By: #### C MP, LIPID #### [facility] [address] [address] [address] Ricky Valenzuela Globulin (S) [Mass/Vol] 4.2 g/dL Normal [facility] Comment on above: Performed By: #### C MP, LIPID #### [facility] [address] [address] [address] Ricky Valenzuela Glucose [Mass/Vol] 200 mg/dL Critically high 74-106 [facility] Comment on above: Performed By: #### C MP, LIPID #### [facility] [address] [address] [address] Ricky Valenzuela Potassium [Moles/Vol] 4.1 mmol/L Normal 3.5-5.1 [facility] Comment on above: Performed By: #### C MP, LIPID #### [facility] [address] [address] [address] Ricky Valenzuela Protein [Mass/Vol] 7.5 g/dL Normal 6.4-8.2 [facility] Comment on above: Performed By: #### C MP, LIPID #### [facility] [address] [address] [address] Ricky Valenzuela Sodium [Moles/Vol] 139 mmol/L Normal 136-145 [facility] Comment on above: Performed By: #### C MP, LIPID #### [facility] [address] [place] [address] Dr. Ricky Valenzuela Urea nitrogen [Mass/Vol] 13.0 mg/dL Normal 7.0-18.0 [facility] Comment on above: Performed By: #### C MP, LIPID #### [facility] [address] [place] [address] Dr. Ricky Valenzuela Urea nitrogen/Creatinine [Mass ratio] 13.7 mg/mg Normal [facility] Comment on above: Performed By: #### C MP, LIPID #### [facility] [address] [place] [address] Dr. Ricky Valenzuela POINT OF CARE GLUCOSEon 05-2 Glucose [Mass/Vol] 176 mg/dL Critically high 74-106 [facility] Comment on above: Performed By: #### P OCGLUC #### [facility] [address] [place] [address] Dr. Ricky Valenzuela Vital Signs Date Time Vital Sign Value Performing Clinician Facility 01-18-2023 09:10-0500 Body height 156.21 cm Elle Hendricks Other [facility] Other 01-18-2023 09:10-0500 Body mass index (BMI) [Ratio] 42.82 kg/m2 Elle Ruthie Other [facility] Other 01-18-2023 09:10-0500 Body temperature 98.2 [degF] Elle Ruthie Other [facility] Other 01-18-2023 09:10-0500 Body weight 104.51 kg Elle Ruthie Other [facility] Other 01-18-2023 09:10-0500 Diastolic blood pressure 92 mm[Hg] Elle Ruthie Other [facility] Other 01-18-2023 09:10-0500 Respiratory rate 18 /min Elle Ruthie Other [facility] Other 01-18-2023 09:10-0500 SaO2% (BldA) [Mass fraction] 97 % Elle Ruthie Other [facility] Other 01-18-2023 09:10-0500 Systolic blood pressure 145 mm[Hg] Elle Ruthie Other [facility] Other Encounters Encounter Date Encounter Type Care Provider Facility Start: 08-05-2023 End: 08-05-2023 ambulatory BARRIOS FAWWAD Not Available Start: 07-04-2023 End: 07-04-2023 ambulatory BARRIOS FAWWAD Not Available Start: 05-02-2023 End: 05-02-2023 ambulatory BARRIOS FAWWAD Not Available Start: 04-30-2023 End: 04-30-2023 ambulatory [facility] Work Phone: Start: 04-30-2023 End: 04-30-2023 Patient encounter procedure [facility] Work Phone: Start: 03-21-2023 Orders Only Barrios Fawwad MD Work Phone: [facility] Comment on above: Diabetic polyneuropa thy associated with type 2 diabetes mellitus (CMS/HCC) (Primary Dx) Start: 03-19-2023 End: 03-19-2023 ambulatory Ana Luisa Curtis Other [facility] Other Start: 03-19-2023 Office outpatient vi sit 15 minutes Ana Luisajesus Curtis [facility] [place] [facility] Start: 02-25-2023 End: 02-25-2023 ambulatory ELIDA Ureña RADHA Not Available Start: 01-29-2023 End: 01-29-2023 ambulatory SHAIKH ELY Not Available Start: 01-23-2023 End: 01-23-2023 ambulatory Ana Luisa Curtis Other [facility] Other Start: 01-23-2023 Office outpatient vi sit 15 minutes Ana Luisajesus Curtis [facility] [place] [facility] Start: 01-18-2023 End: 01-18-2023 ambulatory Ellesasha Hendricks Other [facility] Other Start: 01-18-2023 Office outpatient vi sit 15 minutes Ellesasha Hendricks [facility] Start: 09-19-2022 End: 09-19-2022 ambulatory Ana Luisa Curtis Other [facility] Other Start: 09-19-2022 Telephone encounter Ana Luisa Curtis [facility] [place] [facility] Start: 07-12-[address] JONATHAN EDWARDS Facili ty:[facility]1 Start: 06-07-2022 End: 06-08-[address] JONATHAN EDWARDS Facility:[facility] Start: 05-02-2022 End: 05-02-2022 ambulatory Ana Luisa Curtis Other [facility] Other Start: 05-02-2022 Office outpatient ne w 30 minutes Ana Luisa Curtis [facility] [place] [facility] Start: 04-12-2022 End: 04-13-[address] JONATHAN EDWARDS Facility:[facility] Start: 03-08-2022 End: 03-09-[address] JONATHAN EDWARDS Facility:[facility] Start: 02-16-2022 End: 02-17-[address] JONATHAN EDWARDS Facility:[facility] Start: 02-09-2022 End: 02-10-[address] RICARDO HOLM . Facility:[facility] Start: 11-16-2021 End: 11-17-[address] JONATHAN EDWARDS Facility:[facility] Start: 11-01-2021 End: 11-02-2021 ambulatory CRYS PIERCE . Facility:[facility] Start: 08-30-2021 End: 08-31-2021 ambulatory NIKKIE BARCLAY [facility] Start: 08-30-2021 End: 08-30-2021 Subsequent hospital visit by physician Sr Edwards DO Work Phone: [facility] Laboratory Comment on above: Routine cervical sme ar Start: 08-16-2021 Encounter for genera l adult medical examination without abnormal findings DR RICARDO HOLM . [facility] Start: 08-09-2021 End: 08-10-2021 Encounter for [...] Screening for malign ant neoplasm of colon [facility] Start: 08-30-2024 Screening for malign ant neoplasm of cervix [facility] Start: 03-20-2024 Screening for malign ant neoplasm of breast Mammogram [facility] Start: 02-27-2024 End: 02-27-2024 Patient encounter procedure 02/27/2024 11:35 AM EST Office Visit [facility] [address] [place] [address] Elida Garcia MD [address] [place] [address] [facility] Start: 02-12-2024 Glaucoma screening Diabetes: R etinopathy Screening [facility] Start: 08-11-2023 Influenza vaccination Influenza Vacc ine (#1) [facility] Comment on above: Postponed from 10/12 (Patient Refused) Start: 05-02-2023 End: 05-02-2023 Patient encounter procedure 05/02/2023 2:00 PM EDT Office Visit [facility] [address] [place] [address] Shaikh Connelly MD [address] [place] [address] [facility] Start: 02-17-2023 Hemoglobin A1c measurement Diabetes: Hemoglobin A1C [facility] Start: 09-04-2022 End: 09-04-2022 Patient encounter procedure 09/04/2022 Office Visit Obstetrics and Gynecology Nikkie Barclay, CARDIOLOGY PHYSICIAN ASSISTANT - CN [address] [facility] [address] [place] [address] [facility] Start: 10-12-2021 Influenza vaccination Flu vaccine (# 1) [facility] Start: 10-21-2013 Screening for malign ant neoplasm of breast Breast cancer screen [facility] Start: 10-21-2013 Shingles vaccine (1 of 2) Shingles vaccine (1 of 2) [facility] Start: 10-21-2008 Screening for malign ant neoplasm of colon [facility] Start: 2003 Lipid panel Lipids [facility] Start: 10-21-1998 Diabetes screen Diabetes screen [facility] Start: 10-21-1993 Screening for malign ant neoplasm of cervix [facility] Start: 10-21-1982 DTaP/Tdap/Td vaccine (1 - Tdap) DTaP/Tdap/Td vaccine (1 - Tdap) [facility] Start: 10-21-1982 Urine screening for protein Diabetes: Urine Protein Screening [facility] Start: 10-21-1981 Hepatitis C screening Hepatitis C sc reen [facility] Start: 10-21-1978 HIV screening HIV screen [facility] Start: 1975 Depression Screen Depression Screen [facility] Start: 04-20-1964 COVID-19 Vaccine (#1) COVID-19 Vacci ne (#1) [facility] Start: 1965 Screening for malign ant neoplasm of colon [facility] End: 08-30-2021 Cytopathology procedure, preparation of smear, genital source [facility] Routine Routine cervical smear 1 Occurrences starting 08/30/2021 until 08/30/2021 [facility] Work Phone: Comment on above: 1 Occurrences starti ng 08/30/2021 until 08/30/2021 Immunizations Immunization Date Immunization Notes Care Provider Tima garcia 01-14-2017 influenza, injectabl e, quadrivalent, preservative [facility] Payers Date Payer Category Payer Unknown [employer] [id number] 2022-Present [phone] [address] [address] [place] [address] [id number] 2012 Medicare MEDICARE MEDICAR E PART B [id number] 2012-[place] [address] [place] [address] Medicare [id number] 1963 Unknown [id number] 2.16.840.1.019820.3.579.2.17 3 1963 Unknown [id number] 2.16.840.1.955692.3.579.2.59 3 1963 Unknown [id number] 2.16.840.1.667614.3.579.2.59 3 1963 Unknown [id number] 2.16.840.1.130515.3.579.2.59 3 1963 Unknown [id number] 2.16.840.1.724315.3.579.2.59 3 1963 Unknown [id number] 2.16.840.1.541627.3.579.2.59 3 1963 Unknown [id number] 2.16.840.1.822203.3.579.2.59 3 1963 Unknown [id number] 2.16.840.1.567210.3.579.2.59 3 1963 Unknown [id number] 2.16.840.1.731363.3.579.2.59 3 1963 Unknown [id number] 2.16.840.1.728511.3.579.2.59 3 1963 Unknown [id number] 2.16.840.1.093408.3.579.2.59 3 1963 Unknown [id number] 2.16.840.1.302216.3.579.2.59 3 1963 Unknown [id number] 2.16.840.1.880936.3.579.2.59 3 1963 Unknown [id number] 2.16.840.1.969447.3.579.2.59 3 1963 Unknown [id number] 2.16.840.1.477864.3.579.2.59 3 1963 Unknown [id number] 2.16.840.1.075826.3.579.2.59 3 1963 Unknown [id number] 2.16.840.1.193212.3.579.2.59 3 1963 Unknown [id number] 2.16.840.1.723489.3.579.2.12 59 1963 Unknown [id number] 2.16.840.1.589113.3.579.2.12 59 1963 Unknown [id number] 2.16.840.1.667790.3.579.2.12 59 1963 Unknown [id number] 2.16.840.1.256004.3.579.2.12 59 1963 Unknown [id number] 2.16.840.1.439224.3.579.2.12 59 1959 Medicare [id number] 1.2.840.408938.1.13.239.2.7. 3.743469.315 1959 Unknown [id number] 1.2.840.444018.1.13.239.2.7. 3.855495.315 1959 Unknown [id number] 2.16.840.1.020327.19 Medicare Medicare [id number] Self-pay Self Pay [id number] Social History Date Type Detail Facility Start: 08-30-2021 [facility] Phone: History of tobacco use Cigarette Smoker [facility] Phone: Start: 08-30-2021 End: 01-29-2023 Tobacco use and exposure Smokeless tobacco non-user [employer] Phone: Start: 08-30-2021 Alcohol intake Current drinke r of alcohol (finding) [facility] Phone: Start: 08-30-2021 History SDOH Alcohol Comment occasional [facility] Phone: Start: 1965 Sex Assigned At Not on file [facility] Phone: Start: 08-20-2021 End: 08-30-2021 Exposure to SARS-CoV-2 (event) Not sure [facility] Start: 02-25-2023 Sex Assigned At N [facility] Other Start: 01-23-2023 End: 01-29-2023 Tobacco smoking status [facility] Ex-smoker [facility] History of tobacco use Current smoker [facility] Start: 01-29-2023 End: 02-25-2023 Cigarettes smoked current (pack per day) - Reported 0.5 [facility] Start: 02-25-2023 Alcohol intake Lifetime non-d gus (finding) [facility] Start: 1965 Sex Assigned At Female F [facility] Medical Equipment Procedure Code Equipment Code Equipment Origin al Text Equipment Identifier Dates USE TO TEST BLOO D SUGAR TWICE DAILY [id number] Start: 06-08-2021 Clinical Notes 06-20-2021 to 03-19-2023 [...] Mar, Left hand pain (ICD-10 - M79.642) [facility] Other 12-13-2023 Evaluation note* Encounter Date Diagnosis [...] noted. Patient will f/u in 4 weeks. [facility] Other 12-08-2023 Evaluation note* Encounter Date Diagnosis [...] left hand x-ray that was performed at [facility] which revealed degenerative changes in the hand as well as a remote avulsion fracture of the thumb. Patient states her family doctor is treating her for gout in her hand. Jan, History of gout (ICD-10 - Z87.39) Jan, Other Gout material w as printed [facility] Other 08-09-2023 Evaluation note* Encounter Date Diagnosis Assessment Notes Treatment Notes Treatment Clinical Notes Sep, Right wrist pain (ICD-10 - M25.531) [facility] Other 04-27-2023 NoteCONSULTATION CONSULTATION DATE: 06/07/2022 TO: [...] our patients to inform us about any [id number] medications or herbal remedies/nutritional supplements/alternative remedies. 2. [...] treatment options with their primary care provider.[facility] [id number] Evaluation note * Encounter Date Diagnosis Assessment [...] understanding and is agreeable to treatment plan. [facility] Other [id number] NoteCONSULTATION PROCEDURE DATE: 03/08/2022 PREOPERATIVE DIAGNOSIS: Bilateral [...] will be followed up in the clinic.[facility] [id number] NotePROCEDURE: XR KNEE LT 4V or > [...] Electronically authenticated by: PATTIE SALTER Date: 2022-02-16 11:29[facility]12-30-2022 NoteCONSULTATION CONSULTATION DATE: 02/09/2022 HISTORY OF [...] office today. Patient agrees with this plan.[facility] [id number] NotePROCEDURE: XR WRIST RT MIN 3 V COMPARISON: None. HISTORY: Injury of right wrist FINDINGS: BONES:No acute fracture or dislocation. Corticated bone fragment identified along the first carpometacarpal joint [degenerative in nature SOFT TISSUES:Moderate diffuse soft tissue swelling EFFUSION:None visible. OTHER: Negative. IMPRESSION: Soft tissue swelling, no acute fracture Electronically authenticated by: RYAN GOLDMAN Date: 2021-11-16 18:59[facility] [id number] NoteCONSULTATION CONSULTATION DATE: 11/01/2021 HISTORY OF PRESENT [...] otherwise indicated. Patient agrees with this plan.[facility] [id number] NoteCONSULTATION PROCEDURE DATE: 11/01/2021 PRE AND POSTOPERATIVE [...] will be followed up in the clinic.[facility] [id number] NoteCONSULTATION PROCEDURE DATE: 08/09/2021 PREOPERATIVE DIAGNOSIS: Bilateral [...] will be followed up in the clinic. [facility] Signed and Approved by: CRYS PIERCE . 08/10/2021 13:37:00[facility] [id number] NoteCONSULTATION CONSULTATION DATE: 07/19/2021 HISTORY OF PRESENT [...] injections. Patient acknowledges and all questions answered. [facility] Signed and Approved by: CRYS PIERCE . 07/20/2021 10:33:00[facility]05-25-2022 NotePROCEDURE: XR FOOT RT MIN 3 [...] Electronically authenticated by: PATTIE SALTER Date: 2021-07-05 11:11[facility]05-10-2022 NoteCONSULTATION CONSULTATION DATE: 06/20/2021 CHIEF COMPLAINT: [...] like to proceed. CC: Jonathan Edwards M.D. [facility] Signed and Approved by: DR RICARDO HOLM . 06/27/2021 10:40:00[facility] Routine cervical smear Screening for malignant neoplasm of the cervix documented in this encounter MIKE A[facility] Work Phone: evaluation note* Diagnosis Diabetic polyneuropathy associated with type 2 diabetes mellitus (CMS/HCC)- Primary documented in this encounter [facility] noteNo assessment [facility] Work Phone: History general Narrative - Reported* Type Description Date Medical History GERD (gastroesophageal reflux di sease) Medical History Migraine headache Medical History Arthritis Medical History Edema of both legs Medical History Diabetes mellitus, type 2 Medical History Chronic back pain Surgical History ablasion Surgical History back surgery Surgical History hysterectomy Surgical History tubal ligation Hospitalization History see above [facility] Other Summary Purpose Family History No Family [...] Care Teams (unrecognized sec tion and content) Braddisher Relationship Specialty Start Date End Date Sr Jonathan Edwards DO [address] [place] [address] PCP - General Family Medicine 08/30/21 Braddisher Relationship Specialty Start Date End Date Shaikh [...] DATE CREATED AUTHOR AUTHOR'S ORGANRONALDO ATDINA 08/06/2023 [facility] dical Specialists EPIC REASON FOR VISIT [...] BE BASED ON THE PRIMARY CLINICAL RECORDS. [employer] [employer] [facility]. provides no warranty or guarantee of the accuracy or completeness of information in this document.
[2023-08-17] MEDS: 0.9 % SODIUM CHLORIDE 1,000 ML 75 ML IV ×2 (06:43→19:39)
[2023-08-17] MEDS: ENOXAPARIN SODIUM 40 MG/0.4 ML SYRINGE SUBQ (09:52)
[2023-08-17] MEDS: DIVALPROEX SODIUM 500 MG TABLET.DR PO ×2 (09:53→21:28)
[2023-08-17] MEDS: FAMOTIDINE 20 MG TABLET PO ×2 (09:53→21:28)
[2023-08-17] MEDS: ALLOPURINOL 300 MG TABLET PO (09:53)
[2023-08-17] MEDS: ASPIRIN 81 MG TABLET.DR PO (09:53)
[2023-08-17] MEDS: KETOROLAC TROMETHAMINE 30 MG/ML VIAL IVP (10:16)
[2023-08-17] MEDS: METHYLPREDNISOLONE SOD SUCC PF 125 MG/2 ML VIAL 60 MG IVP ×3 (10:16→21:28)
[2023-08-17] MEDS: PREGABALIN 50 MG CAPSULE PO (10:16)
[2023-08-17] MEDS: CHOLECALCIFEROL (VITAMIN D3) 25 MCG/1,000 UNITS TABLET PO (10:26)
[2023-08-17] MEDS: OXYCODONE HCL/ACETAMINOPHEN 5MG/325MG 2 TAB PO (10:26)
[2023-08-17] MEDS: METFORMIN HCL 500 MG TABLET PO ×2 (10:26→21:28)
--- NOTE | 2023-08-17 11:01 | PM.HP ---
HPI H&P: HPI History of Present Illness Chief complaint: back pain Narrative: 57 y/o female with a history of lumbar spondylosis and surgery x 3 presents with back pain. No recent change in activity or lifting. Currently dealing with left foot fracture and not as active. Increased pain in low back and across top hips. Severe tightness and spasms. No radiation into gluteal region or down legs. Increased pain and to ER. X-ray without acute changed. UA negative. Given medication and attempted to discharge but not able to ambulate. Admitted for treatment. Not much improvement this am. Continued pain and very difficult to move around in bed. Opioid HPI Opioid Management Most Recent Pain and Opioid Data: Last Pain Scale 8 08/17/23 10:26 Last Pain Assessment 08/17/23 10:00 Last MAR Pain Assessment 08/17/23 10:26 Last ORT Total Score 0 08/17/23 04:54 Last ORT Risk Category Low Risk 08/17/23 04:54 Review of Systems ROS Constitutional Denies: fever, chills or fatigue Cardiovascular Denies: chest pain, palpitations or edema Respiratory Denies: shortness of breath, cough or wheezing Gastrointestinal Denies: abdominal pain, nausea, vomiting or diarrhea Genitourinary Denies: painful urination Musculoskeletal Reports: back pain PFSH PFSH Medical History Fracture of foot ?S92.909A - Unspecified fracture of unspecified foot, initial encounter for closed fracture (ICD-10) Closed fibular fracture ?S82.409A - Unspecified fracture of shaft of unspecified fibula, initial encounter for closed fracture (ICD-10) Fracture of medial cuneiform of left foot ?S92.242A - Displaced fracture of medial cuneiform of left foot, initial encounter for closed fracture (ICD-10) Fracture of metatarsal of left foot, closed ?S92.302A - Fracture of unspecified metatarsal bone(s), left foot, initial encounter for closed fracture (ICD-10) Dislocation of foot, left, closed ?S93.305A - Unspecified dislocation of left foot, initial encounter (ICD-10) Mild protein-calorie malnutrition ?E44.1 - Mild protein-calorie malnutrition (ICD-10) Acute exacerbation of chronic low back pain ?M54.50 - Low back pain, unspecified (ICD-10) ?G89.29 - Other chronic pain (ICD-10) Migraine headache ?G43.909 - Migraine, unspecified, not intractable, without status migrainosus (ICD-10) Hyperlipidemia ?E78.5 - Hyperlipidemia, unspecified (ICD-10) Iron deficiency anemia ?D50.9 - Iron deficiency anemia, unspecified (ICD-10) Lumbar radiculopathy ?M54.16 - Radiculopathy, lumbar region (ICD-10) Chronic prescription opiate use ?Z79.891 - jail (current) use of opiate analgesic (ICD-10) Sacroiliac joint pain ?M53.3 - Sacrococcygeal disorders, not elsewhere classified (ICD-10) Muscle spasm ?M62.838 - Other muscle spasm (ICD-10) Cervical spondylosis ?M47.812 - Spondylosis without myelopathy or radiculopathy, cervical region (ICD-10) Lumbar stenosis with neurogenic claudication ?M48.062 - Spinal stenosis, lumbar region with neurogenic claudication (ICD-10) Compression fracture of L1 vertebra ?S32.010A - Wedge compression fracture of first lumbar vertebra, initial encounter for closed fracture (ICD-10) Tubal ?O00.109 - Unspecified tubal without intrauterine (ICD-10) TMJ (dislocation of temporomandibular joint) ?S03.00XA - Dislocation of jaw, unspecified side, initial encounter (ICD-10) Upper back pain ?M54.9 - Dorsalgia, unspecified (ICD-10) Back pain ?M54.9 - Dorsalgia, unspecified (ICD-10) Neck pain ?M54.2 - Cervicalgia (ICD-10) Osteoarthritis ?M19.90 - Unspecified osteoarthritis, unspecified site (ICD-10) Obesity ?E66.9 - Obesity, unspecified (ICD-10) Heartburn ?R12 - Heartburn (ICD-10) Acid reflux ?K21.9 - Gastro-esophageal reflux disease without esophagitis (ICD-10) Diabetes ?E11.9 - Type 2 diabetes mellitus without complications (ICD-10) Smoker ?F17.200 - Nicotine dependence, unspecified, uncomplicated (ICD-10) Surgical History S/P lumbar spine operation ?Z98.890 - Other specified postprocedural states (ICD-10) H/O: hysterectomy ?Z90.710 - Acquired absence of both cervix and uterus (ICD-10) Family History (Updated 06/08/23 @ 19:39 by Tere Sun) Mother Family history of CHF (congestive heart failure) Family history of cancer Family history of diabetes mellitus Family history of hypertension Family history of myocardial infarction Social History (Updated 06/08/23 @ 19:41 by Tere Sun) Within the past year, how often did you have a drink containing alcohol: monthly or less Smoking status: Light tobacco smoker Non-prescribed substance use: denies use Previous occupational history: retired/disability Highest level of school completed/degree received: high school graduate Are you now , , , , never or living with a partner: In a typical week, how many times do you talk on the telephone with family, friends, or neighbors: 3 or more times per week How often do you get together with friends or relatives: 3 or more times per week How often do you attend religious or zoroastrian services: never Little interest or pleasure in doing things: not at all Feeling down, depressed, or hopeless: not at all Feel stressed/tense/nervous/anxious/difficulty sleeping: not at all Do you think of yourself as: straight/heterosexual Gender Identity: female Meds Home Medications and Allergies Home Medications ?Medication ?Instructions ?Recorded ?Confirmed ?Type alendronate 70 mg tablet 70 mg PO QWEEK 07/20/22 08/17/23 History allopurinol 300 mg tablet 300 mg PO DAILY 07/20/22 08/17/23 History aspirin 81 mg tablet,delayed 81 mg PO DAILY 07/20/22 08/17/23 History release (Adult Aspirin Regimen) cholecalciferol (vitamin D3) 25 1,000 unit PO DAILY 07/20/22 08/17/23 History mcg (1,000 unit) capsule diclofenac sodium 75 mg 75 mg PO BID 07/20/22 08/17/23 History tablet,delayed release divalproex 500 mg tablet,delayed 500 mg PO BID 07/20/22 08/17/23 History release (Depakote) glucosamine [id number] 1 tab PO DAILY 07/20/22 08/17/23 History krzysztof 1,500 mg-400 unit-100 mg tablet (Osteo Bi-Flex (5-Loxin)) lactobacillus combo no.13 1 1 cap PO DAILY 07/20/22 08/17/23 History billion cell capsule,delayed release (Probiotic Pearls Complete) multivitamin 1 tab PO DAILY 07/20/22 08/17/23 History oxycodone-acetaminophen 5 mg-325 1 tab PO DAILY PRN pain 07/20/22 08/17/23 History mg tablet prasterone (dhea) 50 mg capsule 50 mg PO DAILY 07/20/22 08/17/23 History (DHEA) famotidine 20 mg tablet 20 mg PO BID 06/08/23 08/17/23 History metformin 1,000 mg tablet 500 mg PO BID 06/08/23 08/17/23 History rizatriptan 10 mg tablet 10 mg PO Q2H PRN migraine headache 06/08/23 08/17/23 History rosuvastatin 20 mg tablet 20 mg PO DAILY 06/08/23 08/17/23 History baclofen 10 mg tablet 10 mg PO Q8H PRN muscle spasm #20 08/17/23 Rx tabs glimepiride 1 mg tablet 0.5 mg PO QAM 08/17/23 08/17/23 History methocarbamol 750 mg tablet 750 mg PO BID 08/17/23 08/17/23 History pregabalin 75 mg capsule 75 mg PO BID 08/17/23 08/17/23 History semaglutide 1 mg/dose (4 mg/3 mL) 1 mg subcut QWEEK 08/17/23 08/17/23 History subcutaneous pen injector (Ozempic) Allergies Allergy/AdvReac Type Severity Reaction Status Date / Time No Known Drug Allergies Allergy Verified 08/17/23 01:36 Exam Constitutional Vital Signs, click to edit/add: Last Vital Signs Temp 97.8 F 08/17/23 05:10 Pulse 101 H 08/17/23 05:10 Resp 16 08/17/23 05:10 BP 122/64 08/17/23 05:10 Pulse Ox 97 08/17/23 05:10 O2 Del Method Nasal Cannula 08/17/23 05:10 O2 Flow Rate 2 08/17/23 05:10 Documenting provider has reviewed patient's vital signs: yes Common normals: no apparent distress, oriented x3 and alert HENMT Common normals: normocephalic Eye Common normals: PERRL and EOMs intact bilaterally Respiratory Common normals: normal respiratory effort and clear to auscultation bilaterally Cardio Common normals: regular rate, regular rhythm, no gallops, no murmurs and no rub GI Common normals: Normal to inspection, nondistended, normoactive bowel sounds present and non-tender Back & Pelvis Lumbar spine/lower back: lumbar spinal tenderness, paraspinal muscle tenderness and paraspinal muscle spasm Extremity Common normals: no pedal edema Results Labs Labs: Short CBC 08/17/23 Range/Units 03:49 WBC 15.4 H (4.0-11.0) 10^3/uL Hgb 13.4 (12.0-16.0) g/dL Hct 41.0 (36.0-48.0) % Plt Count 254 (150-450) 10^3/uL BMP 08/17/23 03:49 Sodium 135 L Potassium 3.6 Chloride 98 Carbon Dioxide 30.8 BUN 21.0 H Creatinine 1.01 Glucose 125 H Calcium 10.1 Urine 08/17/23 Range/Units 02:04 Urine Color Lt. yellow (YELLOW) Urine Clarity Clear (CLEAR) Urine pH 6.0 (5.0-9.0) Ur Specific Jack <=1.005 A (1.005-1.025) Urine Protein Negative (NEG/TRACE) mg/dL Urine Glucose (UA) Negative (NEGATIVE) mg/dL Assessment and Plan Assessment and Plan (1) Intractable low back pain: (2) Lumbar spondylosis: (3) Morbid obesity due to excess calories: (4) Type 2 diabetes mellitus with hyperglycemia: (5) HTN (hypertension): Plan Severe pain and difficulty moving. Start solu-medrol. Continue lyrica and percocet for pain. Stop robaxin and add baclofen. Start PT. Increase activity and ambulation. Resume home medication. Will reassess in am.
[2023-08-17 12:05] LABS: Glucometer 133 mg/dL (74-106)
[2023-08-17] MEDS: BACLOFEN 10 MG TABLET 20 MG PO ×2 (12:37→21:28)
[2023-08-17 16:10] LABS: Glucometer 145 mg/dL (74-106)
[2023-08-17] MEDS: INSULIN ASPART 300 UNIT/3 ML PEN SUBQ ×2 (16:23→21:23)
[2023-08-17] MEDS: OXYCODONE HCL/ACETAMINOPHEN 5MG/325MG 1 TAB PO (16:28)
[2023-08-17 19:43] LABS: Glucometer 200 mg/dL (74-106)
[2023-08-17] MEDS: PREGABALIN 75 MG CAPSULE PO (21:28)
[2023-08-18] MEDS: METHYLPREDNISOLONE SOD SUCC PF 125 MG/2 ML VIAL 60 MG IVP ×2 (03:59→11:04)
[2023-08-18 04:13] VITALS: BP 158/92; PULSE 93; TEMP 36.4; O2SAT 94
[2023-08-18 05:09] LABS: Basophils Percent Auto 0.2 % (0.2-2.0); Hematocrit 36.1 % (36.0-48.0); Hemoglobin 11.8 g/dL (12.0-16.0); Immature Granulocytes Abs Auto 0.27 10^3/uL (0.00-0.03); Immature Granulocytes Pct Auto 2.1 % (0.0-0.5); Lymphocytes Absolute Auto 1.5 10^3/uL (1.2-3.8); Lymphocytes Percent Auto 11.6 % (20.5-60.0); Mean Corpuscular HGB Conc 32.7 g/dL (29.9-35.2); Mean Corpuscular Hemoglobin 30.3 pg (26.7-34.0); Mean Corpuscular Volume 92.8 fL (81.0-99.0); Mean Platelet Volume 11.1 fL (9.5-13.5); Monocytes Absolute Auto 0.2 10^3/uL (0.3-0.8); Monocytes Percent Auto 1.6 % (1.7-12.0); Neutrophils Absolute Auto 10.9 10^3/uL (1.4-6.5); Neutrophils Percent Auto 84.5 % (43.0-75.0); Platelet Count 246 10^3/uL (150-450); Red Blood Count 3.89 10^6/uL (4.20-5.40); Red Cell Distribution Width 14.5 % (11.0-15.0); White Blood Count 12.9 10^3/uL (4.0-11.0)
[2023-08-18 05:45] LABS: Alanine Aminotransferase 14 U/L (14-59); Albumin Globulin Ratio 0.7; Albumin Level 2.7 g/dL (3.4-5.0); Alkaline Phosphatase 78 U/L (46-116); Anion Gap 10.6; Aspartate Amino Transferase 7 U/L (15-37); BUN Creatinine Ratio 30.3; Bilirubin Total 0.2 mg/dL (0.2-1.0); Calcium 8.8 mg/dL (8.5-10.1); Carbon Dioxide 27.9 mmol/L (21.0-32.0); Chloride 99 mmol/L (98-107); Estimated GFR (African America >60 (>=60); Estimated GFR (Non-African Ame 51 (>=60); Globulin 4.1 g/dL; Glucose 197 mg/dL (74-106); Magnesium 1.3 mg/dL (1.8-2.4); Potassium 4.5 mmol/L (3.5-5.1); Sodium 133 mmol/L (136-145); Total Protein 6.8 g/dL (6.4-8.2)
[2023-08-18] MEDS: BACLOFEN 10 MG TABLET 20 MG PO (06:10)
[2023-08-18] MEDS: INSULIN ASPART 300 UNIT/3 ML PEN SUBQ (09:34)
[2023-08-18] MEDS: ENOXAPARIN SODIUM 40 MG/0.4 ML SYRINGE SUBQ (09:35)
[2023-08-18] MEDS: KETOROLAC TROMETHAMINE 30 MG/ML VIAL IVP (09:35)
[2023-08-18] MEDS: ASPIRIN 81 MG TABLET.DR PO (09:35)
[2023-08-18] MEDS: FAMOTIDINE 20 MG TABLET PO (09:35)
[2023-08-18] MEDS: DIVALPROEX SODIUM 500 MG TABLET.DR PO (09:35)
[2023-08-18] MEDS: OXYCODONE HCL/ACETAMINOPHEN 5MG/325MG 1 TAB PO (09:35)
[2023-08-18] MEDS: ALLOPURINOL 300 MG TABLET PO (09:36)
[2023-08-18] MEDS: CHOLECALCIFEROL (VITAMIN D3) 25 MCG/1,000 UNITS TABLET PO (09:36)
[2023-08-18] MEDS: PREGABALIN 75 MG CAPSULE PO (09:36)
[2023-08-18] MEDS: METFORMIN HCL 500 MG TABLET PO (09:36)
[2023-08-18 09:45] LABS: Glucometer 224 mg/dL (74-106)
[2023-08-18 11:45] LABS: Glucometer 236 mg/dL (74-106)
--- NOTE | 2023-08-18 13:40 | P.DS_ITS ---
DS: Providers Provider Date of admission: 08/17/23 04:35 Primary care physician: Shaikh Maricel MD Consults: 08/17/23 09:28 Physical Therapy Eval and Treat Routine Reason for consultation: Lumbar spondylosis DS: Diagnosis Discharge Diagnosis (1) Intractable low back pain: (2) Lumbar spondylosis: (3) Morbid obesity due to excess calories: (4) Type 2 diabetes mellitus with hyperglycemia: (5) HTN (hypertension): DS: Summary Hospital Course Hospital Course: Reason for admission: See H&P for details. 57 y/o female with a history of lumbar spondylosis and surgery x 3 presents with back pain. No recent change in activity or lifting. Currently dealing with left foot fracture and not as active. Increased pain in low back and across top hips. Severe tightness and spasms. No radiation into gluteal region or down legs. Increased pain and to ER. X-ray without acute changed. UA negative. Given medication and attempted to discharge but not able to ambulate. Admitted for treatment. Hospital course: Not much improvement overnight and continued pain and very difficult to move around in bed. Started solu-medrol and baclofen. Started PT. Gradually improved. Able to ambulate around room with less pain. Spasms controlled with medication. Pain tolerable. Discharged home in stable condition. Will take prednisone for next 5 days. Stop robaxin and start baclofen. Resume other home medication as directed. Follow up with PCP in 1-2 weeks. Time Spent with Patient Time attestation: Total time spent providing and/or coordinating discharge services: Time spent: greater than 30 minutes Exam Constitutional Vital Signs, click to edit/add: Last Vital Signs Temp 97.5 F L 08/18/23 04:13 Pulse 93 H 08/18/23 04:13 Resp 18 08/18/23 04:13 BP 158/92 H 08/18/23 04:13 Pulse Ox 94 L 08/18/23 04:13 O2 Del Method Room Air 08/18/23 04:13 O2 Flow Rate 2 08/17/23 08:00 Documenting provider has reviewed patient's vital signs: yes Common normals: no apparent distress, oriented x3 and alert HENMT Common normals: normocephalic Eye Common normals: PERRL and EOMs intact bilaterally Respiratory Common normals: normal respiratory effort and clear to auscultation bilaterally Cardio Common normals: regular rate, regular rhythm, no gallops, no murmurs and no rub GI Common normals: Normal to inspection, nondistended, normoactive bowel sounds present and non-tender Extremity Common normals: no pedal edema DS: Data Data Completed and Pending Labs on day of discharge: Labs from last 24 hours 08/18/23 08/18/23 08/18/23 11:44 09:33 04:48 WBC 12.9 H RBC 3.89 L Hgb 11.8 L Hct 36.1 MCV 92.8 MCH 30.3 MCHC 32.7 RDW 14.5 Plt Count 246 MPV 11.1 Neut % (Auto) 84.5 H Lymph % (Auto) 11.6 L Dundy % (Auto) 1.6 L Eos % (Auto) 0.0 L Baso % (Auto) 0.2 Neut # (Auto) 10.9 H Lymph # (Auto) 1.5 Dundy # (Auto) 0.2 L Eos # (Auto) 0.0 Baso # (Auto) 0.0 Abs Immat Gran (auto) 0.27 H Imm/Tot Granulo (auto) 2.1 H Sodium 133 L Potassium 4.5 Chloride 99 Carbon Dioxide 27.9 Anion Gap 10.6 BUN 33.0 H Creatinine 1.09 H Est GFR ( Amer) >60 Est GFR (Non-Af Amer) 51 L BUN/Creatinine Ratio 30.3 Glucose 197 H Calcium 8.8 Magnesium 1.3 L Total Bilirubin 0.2 AST 7 L ALT 14 Alkaline Phosphatase 78 NT-Pro-B Natriuret Pep 337.0 Total Protein 6.8 Albumin 2.7 L Globulin 4.1 Albumin/Globulin Ratio 0.7 POC Glucose 236 H 224 H 08/17/23 08/17/23 19:42 16:10 WBC RBC Hgb Hct MCV MCH MCHC RDW Plt Count MPV Neut % (Auto) Lymph % (Auto) Dundy % (Auto) Eos % (Auto) Baso % (Auto) Neut # (Auto) Lymph # (Auto) Dundy # (Auto) Eos # (Auto) Baso # (Auto) Abs Immat Gran (auto) Imm/Tot Granulo (auto) Sodium Potassium Chloride Carbon Dioxide Anion Gap BUN Creatinine Est GFR ( Amer) Est GFR (Non-Af Amer) BUN/Creatinine Ratio Glucose Calcium Magnesium Total Bilirubin AST ALT Alkaline Phosphatase NT-Pro-B Natriuret Pep Total Protein Albumin Globulin Albumin/Globulin Ratio POC Glucose 200 H 145 H Discharge Plan Discharge Disposition: Home, Self-Care Condition: Good Discharge Medications: New prednisone 50 mg tablet 50 mg PO DAILY 5 Days Qty: 5 0RF baclofen 20 mg tablet 20 mg PO TID PRN (Reason: muscle spasm) Qty: 60 0RF Continued Ozempic 1 mg/dose (4 mg/3 mL) pen injector 1 mg SUBCUT QWEEK pregabalin 75 mg capsule 75 mg PO BID glimepiride 1 mg tablet 0.5 mg PO QAM Patient Comments: LAST FILLED 11/06/22 -PT STATES SHE IS STILL TAKING 08/17/23 alendronate 70 mg tablet 70 mg PO QWEEK allopurinol 300 mg tablet 300 mg PO DAILY aspirin [Adult Aspirin Regimen] 81 mg tablet,delayed release (DR/EC) 81 mg PO DAILY DHEA 50 mg capsule 50 mg PO DAILY divalproex [Depakote] 500 mg tablet,delayed release (DR/EC) 500 mg PO BID multivitamin Tablet 1 tab PO DAILY [id number] [Osteo Bi-Flex (5-Loxin)] 1,500-400-100 mg-unit-mg tablet 1 tab PO DAILY Rx Instructions: give after food/meal Probiotic Pearls Complete 1 billion cell capsule,delayed release(DR/EC) 1 cap PO DAILY cholecalciferol (vitamin D3) 25 mcg (1,000 unit) capsule 1,000 unit PO DAILY diclofenac sodium 75 mg tablet,delayed release (DR/EC) 75 mg PO BID oxycodone-acetaminophen 5-325 mg tablet 1 tab PO DAILY PRN (Reason: pain) famotidine 20 mg tablet 20 mg PO BID metformin 1,000 mg tablet 500 mg PO BID rizatriptan 10 mg tablet 10 mg PO Q2H PRN (Reason: migraine headache) rosuvastatin 20 mg tablet 20 mg PO DAILY Discontinued methocarbamol 750 mg tablet 750 mg PO BID Activity: resume usual activities as tolerated Diet: advance to your usual diet Print Language: Chinese Patient Instructions: Prednisone (By mouth), Baclofen (By mouth), Chronic Back Pain (DC) Forms: Portal Instructions Follow Up Appointments: Follow up with Dr. Connelly, Call tomorrow for appointment #[phone] Discharge Date/Time: 08/18/23 12:37
--- NOTE | 2023-08-19 13:56 | CM.DCFOLLOWU ---
1st attempt 08/19/23
--- NOTE | 2023-08-19 13:58 | CM.DCFOLLOWU ---
1st attempt 08/19/23
--- NOTE | 2023-08-20 13:16 | CM.DCFOLLOWU ---
Person spoke with: patient How are you feeling? well How is your pain? none Did you understand your discharge instructions? yes Do you have any questions about your discharge instructions? no Were you given any prescriptions at discharge? yes Were you able to get your prescriptions filled? yes Do you understand how to take your medications as ordered? yes Do you have any questions about your follow up appointment and do you plan to keep your follow up appointment? no questions, she will call Dr. Connelly's office to scheduled follow up Is there anything else that you would like to discuss? no Questions/Comments/Concerns/Other: none
== END 2023-08-18 12:37 | disposition home or self-care (01) ==
LOC: ER 03:52 → MS 08-18 11:54
PROVIDERS: Registered Nurse; Admitting Provider Family Medicine; Emergency Provider Emergency Medicine; PCP Internal Medicine; Visit Provider Family Medicine
DX: M47.816 Spondylosis without myelopathy or radiculopathy, lumbar region (principal); M54.50 Low back pain, unspecified; E66.01 Morbid (severe) obesity due to excess calories; E11.65 Type 2 diabetes mellitus with hyperglycemia; I10 Essential (primary) hypertension; Z68.41 Body mass index [BMI] 40.0-44.9, adult; Z79.84 Long term (current) use of oral hypoglycemic drugs; F17.200 Nicotine dependence, unspecified, uncomplicated; S92.909D Unspecified fracture of unspecified foot, subsequent encounter for fracture with routine healing; Z98.890 Other specified postprocedural states; X58.XXXD Exposure to other specified factors, subsequent encounter
CPT/HCPCS: 36415; 72100; 80048; 80053; 81001; 82948; 83735; 83880; 85025; 94761; 96361; 96372; 96374; 96375; 96376; 97161; 97530; 99285; G0378; J1650; J1885; J2270; J2360; J2919

== ENCOUNTER 2023-08-22 14:12 | Outpatient (OUT) | payer OTHER, MEDICARE, SELFPAY ==
--- NOTE | 2023-08-22 14:26 | PM.CN ---
Consult Note: HPI Data of Consult Patient: known to practice within the last 3 years Consult date: 06/09/23 Requesting Physician: Chela Tijerina NP Primary Care Provider: Shaikh Maricel MD Consult Narrative Reason for consult: low back pain Narrative: Brian Weir a pleasant 57 year old female presents for evaluation and management of chronic low back pain. Patient reporting pain 8/10 in low back and bilateral hips, reports constant throbbing sharp bone rubbing pain. Pain increased with twisting standing walking stairs standing activity sleeping and weather changes, pain improved with massage lying and sitting. Patient has an extensive hx of neck and low back pain. Patient utilizes lyrica 75mg TID, diclofenac 75mg BID, ibuprofen PRN, baclofen 10mg 1-2 tabs HS, and percocet 5-325mg PRN. Recent lumbar MRI as noted below. cc:: CC: Chela Tijerina NP Review of Systems ROS Status of ROS 10 or more systems reviewed and unremarkable except as noted in history and below PFSH PFSH Medical History Morbid obesity due to excess calories ?E66.01 - Morbid (severe) obesity due to excess calories (ICD-10) Type 2 diabetes mellitus with hyperglycemia ?E11.65 - Type 2 diabetes mellitus with hyperglycemia (ICD-10) HTN (hypertension) ?I10 - Essential (primary) hypertension (ICD-10) Lumbar spondylosis ?M47.816 - Spondylosis without myelopathy or radiculopathy, lumbar region (ICD-10) Fracture of foot ?S92.909A - Unspecified fracture of unspecified foot, initial encounter for closed fracture (ICD-10) Closed fibular fracture ?S82.409A - Unspecified fracture of shaft of unspecified fibula, initial encounter for closed fracture (ICD-10) Fracture of medial cuneiform of left foot ?S92.242A - Displaced fracture of medial cuneiform of left foot, initial encounter for closed fracture (ICD-10) Fracture of metatarsal of left foot, closed ?S92.302A - Fracture of unspecified metatarsal bone(s), left foot, initial encounter for closed fracture (ICD-10) Dislocation of foot, left, closed ?S93.305A - Unspecified dislocation of left foot, initial encounter (ICD-10) Mild protein-calorie malnutrition ?E44.1 - Mild protein-calorie malnutrition (ICD-10) Acute exacerbation of chronic low back pain ?M54.50 - Low back pain, unspecified (ICD-10) ?G89.29 - Other chronic pain (ICD-10) Migraine headache ?G43.909 - Migraine, unspecified, not intractable, without status migrainosus (ICD-10) Hyperlipidemia ?E78.5 - Hyperlipidemia, unspecified (ICD-10) Iron deficiency anemia ?D50.9 - Iron deficiency anemia, unspecified (ICD-10) Lumbar radiculopathy ?M54.16 - Radiculopathy, lumbar region (ICD-10) Chronic prescription opiate use ?Z79.891 - watermaster (current) use of opiate analgesic (ICD-10) Sacroiliac joint pain ?M53.3 - Sacrococcygeal disorders, not elsewhere classified (ICD-10) Muscle spasm ?M62.838 - Other muscle spasm (ICD-10) Cervical spondylosis ?M47.812 - Spondylosis without myelopathy or radiculopathy, cervical region (ICD-10) Lumbar stenosis with neurogenic claudication ?M48.062 - Spinal stenosis, lumbar region with neurogenic claudication (ICD-10) Compression fracture of L1 vertebra ?S32.010A - Wedge compression fracture of first lumbar vertebra, initial encounter for closed fracture (ICD-10) Tubal ?O00.109 - Unspecified tubal without intrauterine (ICD-10) TMJ (dislocation of temporomandibular joint) ?S03.00XA - Dislocation of jaw, unspecified side, initial encounter (ICD-10) Upper back pain ?M54.9 - Dorsalgia, unspecified (ICD-10) Back pain ?M54.9 - Dorsalgia, unspecified (ICD-10) Neck pain ?M54.2 - Cervicalgia (ICD-10) Osteoarthritis ?M19.90 - Unspecified osteoarthritis, unspecified site (ICD-10) Obesity ?E66.9 - Obesity, unspecified (ICD-10) Heartburn ?R12 - Heartburn (ICD-10) Acid reflux ?K21.9 - Gastro-esophageal reflux disease without esophagitis (ICD-10) Diabetes ?E11.9 - Type 2 diabetes mellitus without complications (ICD-10) Smoker ?F17.200 - Nicotine dependence, unspecified, uncomplicated (ICD-10) Surgical History S/P lumbar spine operation ?Z98.890 - Other specified postprocedural states (ICD-10) H/O: hysterectomy ?Z90.710 - Acquired absence of both cervix and uterus (ICD-10) Family History (Updated 06/08/23 @ 19:39 by Tere Sun) Mother Family history of CHF (congestive heart failure) Family history of cancer Family history of diabetes mellitus Family history of hypertension Family history of myocardial infarction Social History (Updated 06/08/23 @ 19:41 by Tere Sun) Within the past year, how often did you have a drink containing alcohol: monthly or less Smoking status: Light tobacco smoker Non-prescribed substance use: denies use Previous occupational history: retired/disability Highest level of school completed/degree received: high school graduate Are you now , , , , never or living with a partner: In a typical week, how many times do you talk on the telephone with family, friends, or neighbors: 3 or more times per week How often do you get together with friends or relatives: 3 or more times per week How often do you attend uatsdin or zoroastrianism services: never Little interest or pleasure in doing things: not at all Feeling down, depressed, or hopeless: not at all Feel stressed/tense/nervous/anxious/difficulty sleeping: not at all Do you think of yourself as: straight/heterosexual Gender Identity: female Meds Home Medications and Allergies Home Medications ?Medication ?Instructions ?Recorded ?Confirmed ?Type alendronate 70 mg tablet 70 mg PO QWEEK 07/20/22 08/17/23 History allopurinol 300 mg tablet 300 mg PO DAILY 07/20/22 08/17/23 History aspirin 81 mg tablet,delayed 81 mg PO DAILY 07/20/22 08/17/23 History release (Adult Aspirin Regimen) cholecalciferol (vitamin D3) 25 1,000 unit PO DAILY 07/20/22 08/17/23 History mcg (1,000 unit) capsule diclofenac sodium 75 mg 75 mg PO BID 07/20/22 08/17/23 History tablet,delayed release divalproex 500 mg tablet,delayed 500 mg PO BID 07/20/22 08/17/23 History release (Depakote) glucosamine [id number] 1 tab PO DAILY 07/20/22 08/17/23 History krzysztof 1,500 mg-400 unit-100 mg tablet (Osteo Bi-Flex (5-Loxin)) lactobacillus combo no.13 1 1 cap PO DAILY 07/20/22 08/17/23 History billion cell capsule,delayed release (Probiotic Pearls Complete) multivitamin 1 tab PO DAILY 07/20/22 08/17/23 History oxycodone-acetaminophen 5 mg-325 1 tab PO DAILY PRN pain 07/20/22 08/17/23 History mg tablet prasterone (dhea) 50 mg capsule 50 mg PO DAILY 07/20/22 08/17/23 History (DHEA) famotidine 20 mg tablet 20 mg PO BID 06/08/23 08/17/23 History metformin 1,000 mg tablet 500 mg PO BID 06/08/23 08/17/23 History rizatriptan 10 mg tablet 10 mg PO Q2H PRN migraine headache 06/08/23 08/17/23 History rosuvastatin 20 mg tablet 20 mg PO DAILY 06/08/23 08/17/23 History glimepiride 1 mg tablet 0.5 mg PO QAM 08/17/23 08/17/23 History pregabalin 75 mg capsule 75 mg PO BID 08/17/23 08/17/23 History semaglutide 1 mg/dose (4 mg/3 mL) 1 mg subcut QWEEK 08/17/23 08/17/23 History subcutaneous pen injector (Ozempic) baclofen 20 mg tablet 20 mg PO TID PRN muscle spasm #60 08/18/23 Rx tabs prednisone 50 mg tablet 50 mg PO DAILY 5 days #5 tabs 08/18/23 Rx Allergies Allergy/AdvReac Type Severity Reaction Status Date / Time No Known Drug Allergies Allergy Verified 08/17/23 01:36 Exam Constitutional Documenting provider has reviewed patient's vital signs: yes Common normals: no apparent distress, oriented x3, healthy appearing, alert and well nourished General appearance: cooperative Nutritional appearance: obese HENNC Common normals: normocephalic, hearing grossly normal bilaterally and moist oral mucous membranes Head and scalp: normocephalic Eye Common normals: PERRL Pupil: PERRL Neck & C-Spine Common normals: full ROM General: normal visual inspection Cervical spine: pain with cervical ROM Other: trigger point to right occipital area tenderness and pain at bilateral C3/4 4/5 facets predominately axial neck pain without radiculopathy Chest Common normals: inspection of chest normal Respiratory Common normals: normal respiratory effort, no retractions and no use of accessory muscles Back & Pelvis Lumbar spine/lower back: ROM limited, pain with ROM and straight leg raise positive right Sacroiliac joints: SI joint(s) abnormal (bilateral +paris, FADIR, gaenslens, thigh thrust ) Other: increased heaviness weakness cramping of legs with ambulation, improved with rest and forward flexion strength 4/5 in BLE pain following bilateral L2,3 pattern wrapping into groin Extremity Common normals: normal to inspection and full ROM Neuro Common normals: oriented x3, CN's II-XII intact bilaterally, moves all extremities, no focal motor deficits, no sensory deficits noted and deep tendon reflexes 2+ bilaterally Sensorium/orientation: alert Gait (neuro): antalgic Motor exam: no movement abnormalities noted and strength abnormal Psych Common normals: mental status grossly normal, thought process normal, cooperative, affect normal, speech normal and activity/motor behavior normal Speech: normal speech Thought process: normal thought process Results Imaging Lumbar MRI: Attestation: I have reviewed the pertinent imaging results. Radiologist's impression: Mild chronic compression fracture at L1. Grade 1 retrolisthesis at L1-L2 measures 3 mm. Grade 1 retrolisthesis at L2-L3 measures 3 mm. There is grade 1 anterolisthesis at L5-S1 measuring 8 mm. Signal in the bone marrow spaces is normal. No bone marrow edema. No suspicious osseous lesions. L5-S1, severe facet arthropathy. Grade 1 spondylolisthesis measures 8 mm. Moderate to severe degenerative disc disease. No spinal canal stenosis. Spondylolisthesis, facet hypertrophy, disc space narrowing and osteophytes result in severe left foraminal narrowing. Mild right foraminal narrowing. L4-L5, moderate to severe degenerative disc disease. No spinal canal stenosis. No significant foraminal narrowing. L3-L4, moderate degenerative disc disease. No spinal canal stenosis. Mild right foraminal narrowing. No foraminal narrowing on the left. L2-L3, severe degenerative disc disease. There is severe disc space narrowing and diffuse irregularity of the endplates. Reactive degenerative endplate signal changes are noted. Grade 1 retrolisthesis. There is moderate spinal canal stenosis. Mild foraminal narrowing bilaterally. L1-L2, severe degenerative disc disease. Grade 1 retrolisthesis. No spinal canal stenosis. No foraminal narrowing. Additional Findings Additional findings: If on a controlled substance or opioids, I have checked an [place] report on this patient and there are no aberrancies noted in the prescribing history.??If on a controlled substance or opioid a drug screen was completed and reviewed within the last year, and if there has not been a drug screen completed we ordered one today to monitor higher risk, state monitored pain medication use. As part of providing excellent, safe, comprehensive care, the following was completed at our patient's visit: 1. A medication reconciliation and review to ensure accurate knowledge of current/active medications, including asking our patients to inform us about any [id number] medications or herbal remedies/nutritional supplements/alternative remedies. 2. A review to specifically ensure our patients have had annual screening for screening for depression, screening for tobacco use, and screening for unhealthy alcohol use. For concerning screenings had a discussion with the patient, provided patient education, and recommended follow-up with primary care provider when appropriate. If patient noted with a risk of falling, they received education on strength, gait, and balance training to prevent future risk of falling. Assessment and Plan Assessment and Plan (1) Lumbar radiculopathy: (2) Lumbar stenosis with neurogenic claudication: (3) Lumbar spondylosis: (4) Chronic prescription opiate use: (5) Muscle spasm: Plan L2-3 LORY under fluoroscopy for lumbar stenosis with NC/lumbar radiculopathy, has failed to respond to greater than 6 weeks HEP/PT and conservative measures such as heat/ice PRN tylenol consider bilateral L4-5 L5-S1 facet medial branch blocks x2 working towards RFA with improvement of radiculopathy continue current medications tolerating well without side effect f/u 2 weeks after LORY
== END 2023-08-22 14:13 | disposition home or self-care (01) ==
PROVIDERS: PCP Internal Medicine; Visit Provider Nurse Practitioner
DX: M47.26 Other spondylosis with radiculopathy, lumbar region (principal); Z79.899 Other long term (current) drug therapy; M48.062 Spinal stenosis, lumbar region with neurogenic claudication; M62.838 Other muscle spasm
CPT/HCPCS: G0463

== ENCOUNTER 2023-09-03 15:13 | Outpatient (OUT) | payer OTHER, MEDICARE, SELFPAY ==
--- NOTE | 2023-09-03 | XR_ITS ---
The [address] [address] Patient Name: KARINA DE OLIVEIRA MRN: [id number] date: 1965 Sex: F Assigned Patient Location: Current Patient Location: Accession/Order Number: [id number] Exam Date: 09/03/2023 15:15 Report Date: 09/04/2023 07:49 At the request of: SUSSY JONES Procedure: XR foot LT min 3V PROCEDURE: XR foot LT min 3V COMPARISON: 08/13/2023 HISTORY: LEFT FOOT PAIN FINDINGS: BONES:Stable medial midfoot forefoot fusion with a plate and screws, stable. Mid diaphyseal fracture of the second metatarsal with apex lateral angulation, interval callus formation consistent with healing. Transverse fracture base of the fifth metatarsal with partial bony bridging. There is lateral subluxation of the second metatarsal base in relation to the intermediate cuneiform likely representing a Lisfranc type fracture dislocation. Extensive degenerative changes with marginal osteophyte formation. Plantar enthesopathic spurring of the calcaneus SOFT TISSUES:Negative. No visible soft tissue swelling. EFFUSION:None visible. OTHER: Negative. XR/XR foot LT min 3V IMPRESSION: Stable postsurgical and degenerative changes with no mechanical fusion Stable fractures of the second and fifth metatarsals Electronically authenticated by: RYAN GOLDMAN Date: 09/04/2023 07:49
--- OUTSIDE RECORDS SUMMARY | 2023-09-03 15:32 | XMS_ITS | CCD ---
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 Name Role Phone House DO, Sr Jonathan Klein Primary Care Provider [phone] NIKKIE BARCLAY Referring Unavailabl e HOUSE, SR [...] Nieves Consulting Unavailable SUSSY JONES Consulting Unavailable B[place] VILLAGE, DR BASURTO Attending Unavailable [place] VILLAGE, DR BASURTO Primary Care Unavailable [place]ILL[place], DR BASURTO Admitting Unavailable [place], DR JONATHAN Trimble Unavailable [place]ILLAGE, DR BASURTO Primary Care Unavailable GAETANO, DR PATTIE Nieves Consulting Unavailable LAKSHMIPATHY ., NARENDSABAS Admitting Nellie vailable LAKSHMIPATHY ., NARCAMRYNATH Attending Nellie vailable LAKSHMIPATHY ., BILLY Consulting Nellie vailable HOUSE, DR BASURTO Admitting Unavailable B[place] VILLAGE, DR BASURTO Attending Unavailable [place]ILL[place], DR BASURTO Primary Care Unavailable LOVELY, DR RYAN Guzman Consulting Unavailable [place], DR JONATHAN Trimble Unavailable HOLM ., DR [...] Consulting Unavailable PIERCE ., CRYS Trimble Unavailable [place]ILL[place], DR BASURTO Primary Care Unavailable HOLM ., DR RICARDO Belcher Admitting Unavailable HOLM ., DR RICARDO Belcher Attending Unavailable LAKSHMIPATHY ., BILLY Consulting Nellie vailable B[place] VILLAGE, DR BASURTO Primary Care Unavailable HOLM ., DR RICARDO Belcher Admitting Unavailable HOLM ., DR RICARDO Belcher Attending Unavailable PIERCE ., CRYS Consulting Unavailable Elle Hendricks Unavailable Shaikh Connelly MD Primary Care Provider [phone] ELIDA GARCIA Attending Unavailable SHAIKH CONNELLY Attending [...] pen-injector (1 source) Start: 01-30-20 End: 04-29-19 inject 1 mg by subcutaneous injection every [...] 12, 2017 1:00am January 15, 2017 2:23pm Ujncscglhjsa-Gl-Liv n-Minerals (Multiple Vitamin, Womens) Tablet (1 source) Start: 01-12-2017 End: 01-15-2017 Ksaljyxgzsse-Ok-Ms on-Minerals (Multiple Vitamin, Womens) Tablet Discontinued PO Daily January 12, 2017 1:00am January 15, 2017 2:23pm triamcinolone acetonide 40 mg/ml injectable suspension (3 sources) Corticosteroid Start: 03-19-2023 Kenalog-40 06 Feb, 2024 20 mg Start: 01-23-2023 Kenalog-40 Jan, 30 [...] PATTIE SALTER Date: 2022-06-07 11:15 Normal [facility] CBC AUTO DIFFon 04-12-2022 BASO # 0.1 103/ul Normal 0.0-0.1 [facility] Comment on above: Performed By: #### C BC ####[facility] [address] [place] [address]Dr. Ricky Valenzuela Basophils/100 WBC (Bld) 0.5 % Normal 0.2-2.0 [facility] Comment on above: Performed By: #### C BC ####[facility] [address] [place], [place] [address]Dr. Ricky Valenzuela EO # 0.3 103/ul Normal 0.0-0.7 [facility] Comment on above: Performed By: #### C BC ####[facility] [address] [place], [place] [address]Dr. Ricky Valenzuela Eosinophils/100 WBC (Bld) 3.0 % Normal 0.9-7.0 [facility] Comment on above: Performed By: #### C BC ####[facility] [address] [place], [place] [address]Dr. iRcky Valenzuela Erythrocyte distribution width (RBC) [Ratio] 14.8 % Normal 11.0-15.0 [facility] Comment on above: Performed By: #### C BC ####[facility] [address] [place], [place] [address]Dr. Ricky Valenzuela Hematocrit (Bld) [Volume fraction] 40.6 % Normal 36.0-48.0 [facility] Comment on above: Performed By: #### C BC ####[facility] [address] [place], [place] [address]Dr. Ricky Valenzuela Hemoglobin (Bld) [Mass/Vol] 13.5 g/dL Normal 12.0-16.0 [facility] Comment on above: Performed By: #### C BC ####[facility] [address] [place] [id number]. Lesleysharron Nicolas IG # 0.16 10e3/ul Critically high 0.00-0.03 [facility] Comment on above: Performed By: #### C BC ####[facility] [address] [place] [id number]. Ricky Valenzuela IG % 1.4 % Critically high 0.0-0.5 [facility] Comment on above: Performed By: #### C BC ####[facility] [address] [place] [address]Dr. Ricky Valenzuela LYMPH # 3.4 103/ul Normal 1.2-3.8 [facility] Comment on above: Performed By: #### C BC ####[facility] [address] [place] [address]Dr. Ricky Valenzuela Lymphocytes/100 WBC (Bld) 30.4 % Normal 20.5-60.0 [facility] Comment on above: Performed By: #### C BC ####[facility] [address] [place] [address]Dr. Ricky Valenzuela MANUAL DIFF REQ NO Normal [facility] Comment on above: Performed By: #### C BC ####[facility] [address] [place] [id number]. Ricky Valenzuela MCH (RBC) [Entitic mass] 31.8 pg Normal 26.7-34.0 [facility] Comment on above: Performed By: #### C BC ####[facility] [address] [place] [id number]. Ricky Valenzuela MCHC (RBC) [Mass/Vol] 33.3 g/dL Normal 29.9-35.2 [facility] Comment on above: Performed By: #### C BC ####[facility] [address] [place] [id number]. Ricky Valenzuela MCV (RBC) [Entitic vol] 95.5 fL Normal 81.0-99.0 [facility] Comment on above: Performed By: #### C BC ####[facility] [address] [place] [id number]. Ricky Valenzuela MONO # 0.9 103/ul Critically high 0.3-0.8 [facility] Comment on above: Performed By: #### C BC ####[facility] [address] [place] [address]Dr. Ricky Valenzuela Monocytes/100 WBC (Bld) 7.7 % Normal 1.7-12.0 [facility] Comment on above: Performed By: #### C BC ####[facility] [address] [place] [id number]. Ricky Valenzuela NEUT # 6.3 103/ul Normal 1.4-6.5 [facility] Comment on above: Performed By: #### C BC ####[facility] [address] [place] [address]Dr. Ricky Valenzuela Neutrophils/100 WBC (Bld) 57.0 % Normal 43.0-75.0 [facility] Comment on above: Performed By: #### C BC ####[facility] [address] [place] [id number]. Ricky Valenzuela Platelet mean volume (Bld) [Entitic vol] 9.8 fL Normal 9.5-13.5 [facility] Comment on above: Performed By: #### C BC ####[facility] [address] [place] [id number]. Ricky Valenzuela PLT 246 103/ul Normal 150-450 [facility] Comment on above: Performed By: #### C BC ####[facility] [address] [place] [address]Dr. Ricky Valenzuela RBC 4.25 106/ul Normal 4.20-5.40 [facility] Comment on above: Performed By: #### C BC ####[facility] [address] [place] [id number]. Ricky Nicolas WBC 11.1 103/ul Critically high 4.0-11.0 [facility] Comment on above: Performed By: #### C BC ####[facility] [address] [place] [address]DrPasquale Valenzuela GLYCOHEMOGLOBIN A1Con 2022 ADA RECOMMENDATION SEE BELOW Normal [facility] Comment on above: Result Comment: ADA RECOMMENDED LIMIT 4.0 - 6.0 ADA THERAPEUTIC TARGET < 7.0 ACTION SUGGESTED > 7.0 Performed By: #### A 1C ####[facility] [address] [place] [address]Dr. Ricky Valenzuela Glucose [Mass/Vol] 160 mg/dL Normal [facility] Comment on above: Performed By: #### A 1C ####[facility] [address] [place] [address]DrPasquale Valenzuela HbA1c (Bld) [Mass fraction] 7.2 % Critically high 4.5-6.2 [facility] Comment on above: Performed By: #### A 1C ####[facility] [address] [place], [place] [address]Dr. Ricky Valenzuela MICROALBUMIN, RAND URon mALB <1.3 Normal <=30.0 [facility] Comment on above: Performed By: #### M ALBR #### [facility] [address] [place] [address] Dr. Ricky Valenzuela PROF 14(COMP METB)on 023 Albumin [Mass/Vol] 3.3 g/dL Critically low 3.4-5.0 [facility] Comment on above: Performed By: #### C MP #### [facility] [address] [place] [address] Dr. Ricky Valenzuela Albumin/Globulin [Mass ratio] 0.9 {ratio} Normal [facility] Comment on above: Performed By: #### C MP #### [facility] [address] [place] [address] Dr. Ricky Valenzuela ALP [Catalytic activity/Vol] 90 U/L Normal 46-116 [facility] Comment on above: Performed By: #### C MP #### [facility] [address] [place] [address] Dr. Ricky Valenzuela ALT [Catalytic activity/Vol] 42 U/L Normal 14-59 [facility] Comment on above: Performed By: #### C MP #### [facility] [address] [place] [address] Dr. Ricky Valenzuela Anion gap [Moles/Vol] 10.1 mmol/L Normal [facility] Comment on above: Performed By: #### C MP #### [facility] [address] [address] [address] Ricky Valenzuela AST [Catalytic activity/Vol] 21 U/L Normal 15-37 [facility] Comment on above: Performed By: #### C MP #### [facility] [address] [place] [address] Dr. Ricky Valenzuela Bilirubin [Mass/Vol] 0.3 mg/dL Normal 0.2-1.0 [facility] Comment on above: Performed By: #### C MP #### [facility] [address] [place] [address] Dr. Ricky Valenzuela Calcium [Mass/Vol] 9.8 mg/dL Normal 8.5-10.1 [facility] Comment on above: Performed By: #### C MP #### [facility] [address] [place] [address] Dr. Ricky Valenzuela Chloride [Moles/Vol] 99 mmol/L Normal 98-107 [facility] Comment on above: Performed By: #### C MP #### [facility] [address] [place] [address] Dr. Ricky Valenzuela CO2 [Moles/Vol] 33.7 mmol/L Critically high 21.0-32.0 [facility] Comment on above: Performed By: #### C MP #### [facility] [address] [place] [address] Dr. Ricky Valenzuela Creatinine [Mass/Vol] 0.94 mg/dL Normal 0.55-1.02 [facility] Comment on above: Performed By: #### C MP #### [facility] [address] [place] [address] Dr. Ricky Valenzuela EGFR-AF TOGOLESE >60 Normal >=[address] [facility] Comment on above: Performed By: #### C MP #### [facility] [address] [address] [address] Ricky Valenzuela EGFR-NON AF TOGOLESE >60 Normal >=60 [facility] Comment on above: Performed By: #### C MP #### [facility] [address] [address] [address] Ricky Valenzuela Globulin (S) [Mass/Vol] 3.8 g/dL Normal [facility] Comment on above: Performed By: #### C MP #### [facility] [address] [address] [address] Ricky Valenzuela Glucose [Mass/Vol] 168 mg/dL Critically high 74-106 [facility] Comment on above: Performed By: #### C MP #### [facility] [address] [place] [address] Dr. Ricky Valenzuela Potassium [Moles/Vol] 4.8 mmol/L Normal 3.5-5.1 [facility] Comment on above: Performed By: #### C MP #### [facility] [address] [address] [address] Ricky Valenzuela Protein [Mass/Vol] 7.1 g/dL Normal 6.4-8.2 [facility] Comment on above: Performed By: #### C MP #### [facility] [address] [place] [address] Dr. Ricky Valenzuela Sodium [Moles/Vol] 138 mmol/L Normal 136-145 [facility] Comment on above: Performed By: #### C MP #### [facility] [address] [address] [address] Ricky Valenzuela Urea nitrogen [Mass/Vol] 22.0 mg/dL Critically high 7.0-18.0 [facility] Comment on above: Performed By: #### C MP #### [facility] [address] [address] [address] Ricky Valenzuela Urea nitrogen/Creatinine [Mass ratio] 23.4 mg/mg Normal [facility] Comment on above: Performed By: #### C MP #### [facility] [address] [address] [address] Ricky Valenzuela Cytologyon 08-30-2021 Cytology (NOTE) INTERPRETATION Vaginal material, (ThinPrep vial, Imaging-assisted review): Specimen Adequacy: Satisfactory for evaluation. Descriptive Diagnosis: Negative for intraepithelial lesion or malignancy. Veterans Service Representative: CLARK Delacruz(ASCP) Electronically Signed Out zackary/09/07/2021 Source: A: Vaginal material, (ThinPrep vial, Imaging-assisted review) Clinical History Hysterectomy Surgery: Salpingostomy; Ovary removal Z12.4 Encounter for screening for malignant neoplasm of cervix GYNECOLOGIC CYTOLOGY REPORT Patient Name: KARINA DE OLIVEIRA [facility] Rec: [id number] Path Number: [id number] [facility] CONSULTING PATHOLOGISTS [facility] ANATOMIC PATHOLOGY [address] [place] [phone] Normal [facility] Comment on above: Performed By: #### P PPVP #### [address] [id number] Bank Courier: Luca Cummins MD CBC AUTO DIFFon 08-09-2021 BASO # 0.1 103/ul Normal 0.0-0.1 [facility] Comment on above: Performed By: #### C BC #### [facility] [address] [place] [address] Dr. Ricky Valenzuela Basophils/100 WBC (Bld) 0.8 % Normal 0.2-2.0 [facility] Comment on above: Performed By: #### C BC #### [facility] [address] [place] [address] Dr. Ricky Valenzuela EO # 0.2 103/ul Normal 0.0-0.7 [facility] Comment on above: Performed By: #### C BC #### [facility] [address] [place] [address] Dr. Ricky Valenzuela Eosinophils/100 WBC (Bld) 2.1 % Normal 0.9-7.0 [facility] Comment on above: Performed By: #### C BC #### [facility] [address] [place] [address] Dr. Ricky Valenzuela Erythrocyte distribution width (RBC) [Ratio] 15.2 % Critically high 11.0-15.0 [facility] Comment on above: Performed By: #### C BC #### [facility] [address] [place] [address] Dr. Ricky Valenzuela Hematocrit (Bld) [Volume fraction] 41.5 % Normal 36.0-48.0 [facility] Comment on above: Performed By: #### C BC #### [facility] [address] [place] [address] Dr. Ricky Valenzuela Hemoglobin (Bld) [Mass/Vol] 13.5 g/dL Normal 12.0-16.0 [facility] Comment on above: Performed By: #### C BC #### [facility] [address] [place] [address] Dr. Ricky Valenzuela IG # 0.42 10e3/ul Critically high 0.00-0.03 [facility] Comment on above: Performed By: #### C BC #### [facility] [address] [place] [address] Dr. Ricky Valenzuela IG % 3.8 % Critically high 0.0-0.5 [facility] Comment on above: Performed By: #### C BC #### [facility] [address] [place] [address] Dr. Ricky Valenzuela LYMPH # 3.3 103/ul Normal 1.2-3.8 [facility] Comment on above: Performed By: #### C BC #### [facility] [address] [place] [address] Dr. Ricky Valenzuela Lymphocytes/100 WBC (Bld) 29.1 % Normal 20.5-60.0 [facility] Comment on above: Performed By: #### C BC #### [facility] [address] [place] [address] Dr. Ricky Valenzuela MANUAL DIFF REQ NO Normal [facility] Comment on above: Performed By: #### C BC #### [facility] [address] [address] [address] Ricky Valenzuela MCH (RBC) [Entitic mass] 32.4 pg Normal 26.7-34.0 [facility] Comment on above: Performed By: #### C BC #### [facility] [address] [place] [address] Dr. Ricky Valenzuela MCHC (RBC) [Mass/Vol] 32.5 g/dL Normal 29.9-35.2 [facility] Comment on above: Performed By: #### C BC #### [facility] [address] [place] [address] Dr. Ricky Valenzuela MCV (RBC) [Entitic vol] 99.5 fL Critically high 81.0-99.0 [facility] Comment on above: Performed By: #### C BC #### [facility] [address] [place] [address] Dr. Ricky Valenzuela MONO # 0.8 103/ul Normal 0.3-0.8 [facility] Comment on above: Performed By: #### C BC #### [facility] [address] [place] [address] Dr. Ricky Valenzuela Monocytes/100 WBC (Bld) 7.5 % Normal 1.7-12.0 [facility] Comment on above: Performed By: #### C BC #### [facility] [address] [place] [address] Dr. Ricky Valenzuela NEUT # 6.3 103/ul Normal 1.4-6.5 [facility] Comment on above: Performed By: #### C BC #### [facility] [address] [place] [address] Dr. Ricky Valenzuela Neutrophils/100 WBC (Bld) 56.7 % Normal 43.0-75.0 [facility] Comment on above: Performed By: #### C BC #### [facility] [address] [place] [address] Dr. Ricky Valenzuela Platelet mean volume (Bld) [Entitic vol] 9.8 fL Normal 9.5-13.5 [facility] Comment on above: Performed By: #### C BC #### [facility] [address] [address] [address] Ricky Valenzuela PLT 265 103/ul Normal 150-450 [facility] Comment on above: Performed By: #### C BC #### [facility] [address] [address] [address] Ricky Valenzuela RBC 4.17 106/ul Critically low 4.20-5.40 [facility] Comment on above: Performed By: #### C BC #### [facility] [address] [address] [address] Ricky Valenzuela WBC 11.2 103/ul Critically high 4.0-11.0 [facility] Comment on above: Performed By: #### C BC #### [facility] [address] [address] [address] Ricky Valenzuela GLYCOHEMOGLOBIN A1Con 2021 ADA RECOMMENDATION SEE BELOW Normal [facility] Comment on above: Result Comment: ADA RECOMMENDED LIMIT 4.0 - 6.0 ADA THERAPEUTIC TARGET < 7.0 ACTION SUGGESTED > 7.0 Performed By: #### A 1C ####[facility] [address] [place] [address]Dr. Ricky Valenzuela Glucose [Mass/Vol] 183 mg/dL Normal [facility] Comment on above: Performed By: #### A 1C ####[facility] [address] [place] [id number]. Ricky Valenzuela HbA1c (Bld) [Mass fraction] 8.0 % Critically high 4.5-6.2 [facility] Comment on above: Performed By: #### A 1C ####[facility] [address] [place] [id number]. Ricky Valenzuela LIPID PROFILEon 08-09-2021 CHOL-HDL RATIO NORM SEE BELOW Normal [facility] Comment on above: Result Comment: 3.3 - 4.4 LOW RISK 4.4 - 7.1 AVERAGE RISK 7.1 - 11.0 MODERATE RISK >11.0 HIGH RISK Performed By: #### C MP, LIPID #### [facility] [address] [address] [address] Ricky Valenzuela Cholesterol [Mass/Vol] 239 mg/dL Critically high <=200 [facility] Comment on above: Performed By: #### C MP, LIPID #### [facility] [address] [address] [address] Ricky Valenzuela Cholesterol in HDL [Mass/Vol] 36 mg/dL Critically low 40-60 [facility] Comment on above: Performed By: #### C MP, LIPID #### [facility] [address] [address] [address] Ricky Valenzuela Cholesterol in LDL [Mass/Vol] 164.2 mg/dL Normal [facility] Comment on above: Performed By: #### C MP, LIPID #### [facility] [address] [address] [address] Ricky Valenzuela Cholesterol.total/Cho lesterol in HDL [Mass ratio] 6.6 {ratio} Normal [facility] Comment on above: Performed By: #### C MP, LIPID #### [facility] [address] [address] [address] Ricky Valenzuela HDL NORMAL > or = 60 mg/dl - LO W CARDIOVASCULAR RISK <40 mg/dl - HIGH CARDIOVASCULAR RISK Normal [facility] Comment on above: Performed By: #### C MP, LIPID #### [facility] [address] [address] [address] Ricky Valenzuela LDL CALC NORMAL SEE BELOW Normal [facility] Comment on above: Result Comment: <100 mg/dl OPTIMAL 100 - 129 mg/dl NEAR OR ABOVE OPTIMAL 130 - 159 mg/dl BORDERLINE HIGH 160 - 189 mg/dl HIGH >190 mg/dl VERY HIGH Performed By: #### C MP, LIPID #### [facility] [address] [address] [address] Ricky Valenzuela Triglyceride [Mass/Vol] 194 mg/dL Critically high <=150 [facility] Comment on above: Performed By: #### C MP, LIPID #### [facility] [address] [address] [address] Ricky Valenzuela VLDL CALC 38.8 mg/dL Normal [facility] Comment on above: Performed By: #### C MP, LIPID #### [facility] [address] [address] [address] Ricky Valenzuela MICROALBUMIN, RAND URon 07-13 mALB 13.1 mg/L Normal <=30.0 [facility] Comment on above: Performed By: #### M ALBR ####[facility] [address] [place], [place] [address]VdDr. Ricky Valenzuela PROF 14(COMP METB)on 022 Albumin [Mass/Vol] 3.3 g/dL Critically low 3.4-5.0 [facility] Comment on above: Performed By: #### C MP, LIPID #### [facility] [address] [address] [address] Ricky Valenzuela Albumin/Globulin [Mass ratio] 0.8 {ratio} Normal [facility] Comment on above: Performed By: #### C MP, LIPID #### [facility] [address] [address] [address] Ricky Valenzuela ALP [Catalytic activity/Vol] 93 U/L Normal 46-116 [facility] Comment on above: Performed By: #### C MP, LIPID #### [facility] [address] [address] [address] Ricky Valenzuela ALT [Catalytic activity/Vol] 37 U/L Normal 14-59 [facility] Comment on above: Performed By: #### C MP, LIPID #### [facility] [address] [address] [address] Ricky Valenzuela Anion gap [Moles/Vol] 10.9 mmol/L Normal [facility] Comment on above: Performed By: #### C MP, LIPID #### [facility] [address] [address] [address] Ricky Valenzuela AST [Catalytic activity/Vol] 10 U/L Critically low 15-37 [facility] Comment on above: Performed By: #### C MP, LIPID #### [facility] [address] [place] [address] Dr. Ricky Valenzuela Bilirubin [Mass/Vol] 0.2 mg/dL Normal 0.2-1.0 [facility] Comment on above: Performed By: #### C MP, LIPID #### [facility] [address] [address] [address] Ricky Valenzuela Calcium [Mass/Vol] 9.0 mg/dL Normal 8.5-10.1 [facility] Comment on above: Performed By: #### C MP, LIPID #### [facility] [address] [address] [address] Ricky Valenzuela Chloride [Moles/Vol] 100 mmol/L Normal 98-107 [facility] Comment on above: Performed By: #### C MP, LIPID #### [facility] [address] [address] [address] Ricky Valenzuela CO2 [Moles/Vol] 32.2 mmol/L Critically high 21.0-32.0 [facility] Comment on above: Performed By: #### C MP, LIPID #### [facility] [address] [place] [address] Dr. Ricky Valenzuela Creatinine [Mass/Vol] 0.95 mg/dL Normal 0.55-1.02 [facility] Comment on above: Performed By: #### C MP, LIPID #### [facility] [address] [place] [address] Dr. Ricky Valenzuela EGFR-AF TOGOLESE >60 Normal >=60 [facility] Comment on above: Performed By: #### C MP, LIPID #### [facility] [address] [address] [address] Ricky Valenzuela EGFR-NON AF TOGOLESE >60 Normal >=60 [facility] Comment on above: Performed By: #### C MP, LIPID #### [facility] [address] [address] [address] Ricky Valenzuela Globulin (S) [Mass/Vol] 4.2 g/dL Normal [facility] Comment on above: Performed By: #### C MP, LIPID #### [facility] [address] [address] [address] Ricky Valenzuela Glucose [Mass/Vol] 200 mg/dL Critically high 74-106 [facility] Comment on above: Performed By: #### C MP, LIPID #### [facility] [address] [address] [address] Ricky Valenzuela Potassium [Moles/Vol] 4.1 mmol/L Normal 3.5-5.1 [facility] Comment on above: Performed By: #### C MP, LIPID #### [facility] [address] [address] [address] Ricky Valenzuela Protein [Mass/Vol] 7.5 g/dL Normal 6.4-8.2 [facility] Comment on above: Performed By: #### C MP, LIPID #### [facility] [address] [address] [address] Ricky Valenzuela Sodium [Moles/Vol] 139 mmol/L Normal 136-145 [facility] Comment on above: Performed By: #### C MP, LIPID #### [facility] [address] [place] [address] Dr. Ricky Valenzuela Urea nitrogen [Mass/Vol] 13.0 mg/dL Normal 7.0-18.0 [facility] Comment on above: Performed By: #### C MP, LIPID #### [facility] [address] [address] [address] Ricky Valenzuela Urea nitrogen/Creatinine [Mass ratio] 13.7 mg/mg Normal [facility] Comment on above: Performed By: #### C MP, LIPID #### [facility] [address] [place] [address] Dr. Ricky Valenzuela POINT OF CARE GLUCOSEon 06-12 Glucose [Mass/Vol] 176 mg/dL Critically high 74-106 [facility] Comment on above: Performed By: #### P OCGLUC #### [facility] [address] [address] [address] Ricky Valenzuela Vital Signs Date Time Vital Sign Value Performing Clinician Facility 01-18-2023 09:10-0500 Body height 156.21 cm Elle Hendricks Other [facility] Other 01-18-2023 09:10-0500 Body mass index (BMI) [Ratio] 42.82 kg/m2 Elle Dejesusmond Other [facility] Other 01-18-2023 09:10-0500 Body temperature 98.2 [degF] Elle Ruthie Other [facility] Other 01-18-2023 09:10-0500 Body weight 104.51 kg Elle Ruthie Other [facility] Other 01-18-2023 09:10-0500 Diastolic blood pressure 92 mm[Hg] Elle Ruthie Other [facility] Other 01-18-2023 09:10-0500 Respiratory rate 18 /min Elle Dejesusmond Other [facility] Other 01-18-2023 09:10-0500 SaO2% (BldA) [Mass fraction] 97 % Elle Hendricsk Other [facility] Other 01-18-2023 09:10-0500 Systolic blood pressure 145 mm[Hg] Elle Ruthie Other [facility] Other Encounters Encounter Date Encounter Type Care Provider Facility Start: 08-22-2023 End: 08-22-2023 ambulatory CRISTINA FAWWAD Not Available Start: 08-05-2023 End: 08-05-2023 ambulatory CRISTINA FAWWAD Not Available Start: 07-04-2023 End: 07-04-2023 ambulatory CRISTINA FAWWAD Not Available Start: 05-02-2023 End: 05-02-2023 ambulatory CRISTINA FAWWAD Not Available Start: 04-30-2023 End: 04-30-2023 ambulatory [facility] Work Phone: Start: 04-30-2023 End: 04-30-2023 Patient encounter procedure [facility] Work Phone: Start: 03-21-2023 Orders Only Shaikh Maricel HOLLIS Work Phone: [facility] Comment on above: Diabetic polyneuropa thy associated with type 2 diabetes mellitus (CMS/HCC) (Primary Dx) Start: 03-19-2023 End: 03-19-2023 ambulatory Ana Luisa Curtis Other [facility] Other Start: 03-19-2023 Office outpatient vi sit 15 minutes Ana Luisa Curtis [facility] Start: 02-25-2023 End: 02-25-2023 ambulatory ELIDA GARCIA Not Available Start: 01-29-2023 End: 01-29-2023 ambulatory SHAIKH MARICEL Not Available Start: 01-23-2023 End: 01-23-2023 ambulatory Ana Luisa Curtis Other [facility] Other Start: 01-23-2023 Office outpatient vi sit 15 minutes Ana Luisa Curtis [facility] Start: 01-18-2023 End: 01-18-2023 ambulatory Elle Hendricks Other [facility] Other Start: 01-18-2023 Office outpatient vi sit 15 minutes Elle Hendricks [facility] Start: 09-19-2022 End: 09-19-2022 ambulatory Ana Luisa Curtis Other [facility] Other Start: 09-19-2022 Telephone encounter Ana Luisa Curtis [facility] Start: 07-12-[address] JONATHAN EDWARDS Facili ty:H1 Start: 06-07-2022 End: 06-08-[address] JONATHAN EDWARDS Facility:[facility] Start: 05-02-2022 End: 05-02-2022 ambulatory Ana Luisa Curtis Other [facility] Other Start: 05-02-2022 Office outpatient ne w 30 minutes Ana Luisa Curtis [facility] Start: 04-12-2022 End: 04-13-[address] JONATHAN EDWARDS Facility:[facility] Start: 03-08-2022 End: 03-09-[address] JONATHAN EDWARDS Facility:[facility] Start: 02-16-2022 End: 02-17-[address] JONATHAN EDWARDS Facility:[facility] Start: 02-09-2022 End: 02-10-[address] RICARDO HOLM . Facility:[facility] Start: 11-16-2021 End: 11-17-[address] JONATHAN EDWARDS Facility:[facility] Start: 11-01-2021 End: 11-02-2021 ambulatory CRYS PIERCE . Facility:[facility] Start: 08-30-2021 End: 08-31-2021 [facility] Start: 08-30-2021 End: 08-30-2021 Subsequent hospital visit by physician Sr Edwards DO Work Phone: [facility] Comment on above: Routine cervical sme ar Start: 08-16-2021 Encounter for genera l adult medical examination without abnormal findings DR RICARDO HOLM . [facility] Start: 08-09-2021 End: 08-10-2021 Encounter for [...] Screening for malign ant neoplasm of cervix [facility] Start: 03-20-2024 Screening for malign ant neoplasm of breast Mammogram [facility] Start: 02-27-2024 End: 02-27-2024 Patient encounter procedure 02/27/2024 11:35 AM EST [facility] [address] [place] [id number] Elida Garcia MD [address] [place] [address] [facility] Start: 02-12-2024 Glaucoma screening Diabetes: R etinopathy Screening [facility] Start: 08-11-2023 Influenza vaccination Influenza Vacc ine (#1) [facility] Comment on above: Postponed from 10/12 (Patient Refused) Start: 05-02-2023 End: 05-02-2023 Patient encounter procedure 05/02/2023 2:00 PM EDT Office Visit [facility] [address] [place] [address] Shaikh Connelly MD [address] [place] [address] [facility] Start: 02-17-2023 Hemoglobin A1c measurement Diabetes: Hemoglobin A1C [facility] Start: 09-04-2022 End: 09-04-2022 Patient encounter procedure 09/04/2022 Office Visit Obstetrics and Gynecology 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 Start: 10-12-2021 Influenza vaccination Flu vaccine (# 1) [facility] Start: 10-21-2013 Screening for malign ant neoplasm of breast Breast cancer screen [facility] Start: 10-21-2013 Shingles vaccine (1 of 2) Shingles vaccine (1 of 2) [facility] Start: 10-21-2008 Screening for malign ant neoplasm of colon [facility] Start: 2003 Lipid panel Lipids [facility] Start: 10-21-1998 Diabetes screen Diabetes screen [facility] Start: 10-21-1993 Screening for malign ant neoplasm of cervix [facility] Start: 10-21-1982 DTaP/Tdap/Td vaccine (1 - Tdap) DTaP/Tdap/Td vaccine (1 - Tdap) [facility] Start: 10-21-1982 Urine screening for protein Diabetes: Urine Protein Screening [facility] Start: 10-21-1981 Hepatitis C screening Hepatitis C sc reen [facility] Start: 10-21-1978 HIV screening HIV screen [facility] Start: 1975 Depression Screen Depression Screen [facility] Start: 04-20-1964 COVID-19 Vaccine (#1) COVID-19 Vacci ne (#1) [facility] Start: 1963 Screening for malign ant neoplasm of colon [facility] End: 08-30-2021 Cytopathology procedure, preparation of smear, genital source [facility] Routine Routine cervical smear 1 Occurrences starting 08/30/2021 until 08/30/2021 [facility] Work Phone: Comment on above: 1 Occurrences starti ng 08/30/2021 until 08/30/2021 Immunizations Immunization Date Immunization Notes Care Provider Tima garcia 01-14-2017 influenza, injectabl e, quadrivalent, preservative [facility] Payers Date Payer Category Payer Unknown [employer] [id number] 2022-Present [phone] [address] [address] [place] [address] [id number] 2012 Medicare MEDICARE MEDICAR E PART B [id number] 2012-[place] [address] Medicare [id number] 1963 Unknown [id number] 2.16.840.1.975613.3.579.2.17 3 1963 Unknown [id number] 2.16.840.1.581359.3.579.2.59 3 1963 Unknown [id number] 2.16.840.1.275948.3.579.2.59 3 1963 Unknown [id number] 2.16.840.1.377876.3.579.2.59 3 1963 Unknown [id number] 2.16.840.1.073532.3.579.2.59 3 1963 Unknown [id number] 2.16.840.1.405015.3.579.2.59 3 1963 Unknown [id number] 2.16.840.1.415019.3.579.2.59 3 1963 Unknown [id number] 2.16.840.1.928982.3.579.2.59 3 1963 Unknown [id number] 2.16.840.1.400544.3.579.2.59 3 1963 Unknown [id number] 2.16.840.1.173812.3.579.2.59 3 1963 Unknown [id number] 2.16.840.1.740806.3.579.2.59 3 1963 Unknown [id number] 2.16.840.1.031061.3.579.2.59 3 1963 Unknown [id number] 2.16.840.1.802497.3.579.2.59 3 1963 Unknown [id number] 2.16.840.1.791041.3.579.2.59 3 1963 Unknown [id number] 2.16.840.1.824669.3.579.2.59 3 1963 Unknown [id number] 2.16.840.1.537585.3.579.2.59 3 1963 Unknown [id number] 2.16.840.1.681371.3.579.2.59 3 1963 Unknown [id number] 2.16.840.1.575019.3.579.2.12 59 1963 Unknown [id number] 2.16.840.1.822998.3.579.2.12 59 1963 Unknown [id number] 2.16.840.1.812697.3.579.2.12 59 1963 Unknown [id number] 2.16.840.1.878977.3.579.2.12 59 1963 Unknown [id number] 2.16.840.1.669824.3.579.2.12 59 1963 Unknown [id number] 2.16.840.1.258370.3.579.2.12 59 1959 Medicare [id number] 1.2.840.307683.1.13.239.2.7. 3.067769.315 1959 Unknown [id number] 1.2.840.773477.1.13.239.2.7. 3.998551.315 1959 Unknown [id number] 2.16.840.1.200875.19 Medicare Medicare [id number] Self-pay Self Pay [id number] Social History Date Type Detail Facility Start: 08-30-2021 [facility] [employer] Phone: History of tobacco use Cigarette Smoker [facility] [employer] Phone: Start: 08-30-2021 End: 01-29-2023 Tobacco use and exposure Smokeless tobacco non-user [employer] Phone: Start: 08-30-2021 Alcohol intake Current drinke r of alcohol (finding) [employer] Phone: Start: 08-30-2021 History SDOH Alcohol Comment occasional [employer] Phone: Start: 1965 Sex Assigned At Not on file [facility] [employer] Phone: Start: 08-20-2021 End: 08-30-2021 Exposure to SARS-CoV-2 (event) Not sure [employer] Start: 02-25-2023 Sex Assigned At N [employer] Other Start: 01-23-2023 End: 01-29-2023 Tobacco smoking status [facility] Ex-smoker [facility] History of tobacco use Current smoker [facility] Start: 01-29-2023 End: 02-25-2023 Cigarettes smoked current (pack per day) - Reported 0.5 [facility] Start: 02-25-2023 Alcohol intake Lifetime non-d gus (finding) [facility] Start: 1965 Sex Assigned At Female F [facility] Medical Equipment Procedure Code Equipment Code Equipment Origin al Text Equipment Identifier Dates USE TO TEST BLOO D SUGAR TWICE DAILY [id number] Start: 06-08-2021 Clinical Notes 06-20-2021 to 03-19-2023 [...] Mar, Left hand pain (ICD-10 - M79.642) [facility] Other 12-13-2023 Evaluation note* Encounter Date Diagnosis [...] noted. Patient will f/u in 4 weeks. [facility] Other 12-08-2023 Evaluation note* Encounter Date Diagnosis [...] left hand x-ray that was performed at [facility] which revealed degenerative changes in the hand as well as a remote avulsion fracture of the thumb. Patient states her family doctor is treating her for gout in her hand. Jan, History of gout (ICD-10 - Z87.39) Jan, Other Gout material w as printed [facility] Other 08-09-2023 Evaluation note* Encounter Date Diagnosis Assessment Notes Treatment Notes Treatment Clinical Notes Sep, Right wrist pain (ICD-10 - M25.531) [facility] Other 04-27-2023 NoteCONSULTATION CONSULTATION DATE: 06/07/2022 TO: [...] our patients to inform us about any [id number] medications or herbal remedies/nutritional supplements/alternative remedies. 2. [...] treatment options with their primary care provider.[id number] Evaluation note * Encounter Date Diagnosis Assessment [...] understanding and is agreeable to treatment plan. [facility] Other 01-26-2023 NoteCONSULTATION PROCEDURE DATE: 03/08/2022 PREOPERATIVE [...] will be followed up in the clinic.[id number] NotePROCEDURE: XR KNEE LT 4V or > [...] authenticated by: PATTIE SALTER Date: 2022-02-16 11:29[facility]12-30-2022 NoteCONSULTATION CONSULTATION DATE: 02/09/2022 HISTORY OF [...] office today. Patient agrees with this plan.[id number] NotePROCEDURE: XR WRIST RT MIN 3 V COMPARISON: None. HISTORY: Injury of right wrist FINDINGS: BONES:No acute fracture or dislocation. Corticated bone fragment identified along the first carpometacarpal joint [degenerative in nature SOFT TISSUES:Moderate diffuse soft tissue swelling EFFUSION:None visible. OTHER: Negative. IMPRESSION: Soft tissue swelling, no acute fracture Electronically authenticated by: RYAN GOLDMAN Date: 2021-11-16 18:59[facility]09-21-2022 NoteCONSULTATION CONSULTATION DATE: 11/01/2021 HISTORY OF PRESENT [...] otherwise indicated. Patient agrees with this plan.[facility] [id number] NoteCONSULTATION PROCEDURE DATE: 11/01/2021 PRE AND POSTOPERATIVE [...] will be followed up in the clinic.[facility] [id number] NoteCONSULTATION PROCEDURE DATE: 08/09/2021 PREOPERATIVE DIAGNOSIS: Bilateral [...] will be followed up in the clinic. [facility] Signed and Approved by: CRYS PIERCE . 08/10/2021 13:37:00[facility] [id number] NoteCONSULTATION CONSULTATION DATE: 07/19/2021 HISTORY OF PRESENT [...] injections. Patient acknowledges and all questions answered. [facility] Signed and Approved by: CRYS PIERCE . 07/20/2021 10:33:00[facility]05-25-2022 NotePROCEDURE: XR FOOT RT MIN [...] authenticated by: PATTIE SALTER Date: 2021-07-05 11:11[facility]05-10-2022 NoteCONSULTATION CONSULTATION DATE: 06/20/2021 CHIEF [...] like to proceed. CC: Jonathan Edwards M.D. [facility] Signed and Approved by: DR RICARDO HOLM . 06/27/2021 10:40:00[facility] note* Diagnosis Routine cervical smear Screening for malignant neoplasm of the cervix documented in this encounter [facility] Work Phone: evaluation note* Diagnosis Diabetic polyneuropathy associated with type 2 diabetes mellitus ([facility])- Primary documented in this encounter [facility] noteNo assessment information [facility]Gu[facility] Work Phone: History general Narrative - Reported* Type Description Date Medical History GERD (gastroesophageal reflux di sease) Medical History Migraine headache Medical History Arthritis Medical History Edema of both legs Medical History Diabetes mellitus, type 2 Medical History Chronic back pain Surgical History ablasion Surgical History back surgery Surgical History hysterectomy Surgical History tubal ligation Hospitalization History see above [facility] Other Summary Purpose Family History No Family [...] Care Teams (unrecognized sec tion and content) 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 Start Date End Date Sr Jonathan Edwards DO [address] [place] [address] PCP - General Family Medicine 08/30/21 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 Start Date End Date Shaikh Connelly MD PCP - General Internal Medicine 11/11/22 Team Status: Active Member Role Status Dates NON STAFF Primary Care Provider Active Team Status: Inactive Member Role Status Dates Ana Luisa Curtis MD Attending Provider Active Start: April 30, 2023 End: March 19th, 2024 NON STAFF Primary Care Provider Active Start: April 30, 2023 End: April 30, 2023 INFORMATION SOURCE (unrecogn ized section and content) DATE CREATED AUTHOR 09/10/2021 [facility] DATE CREATED AUTHOR AUTHOR'S ORGANIZ ATION 06/08/2022 [facility] DATE CREATED AUTHOR AUTHOR'S ORGANIZ ATION 08/28/2023 [facility] EPIC REASON FOR VISIT (unrecogniz [...] BE BASED ON THE PRIMARY CLINICAL RECORDS. [facility]. provides no warranty or guarantee of the accuracy or completeness of information in this document.
== END 2023-09-03 15:14 | disposition home or self-care (01) ==
LOC: EC 15:13
PROVIDERS: PCP Internal Medicine; Visit Provider Podiatrist Foot & Ankle Surgery
DX: M79.672 Pain in left foot (principal); Z98.890 Other specified postprocedural states; M24.675 Ankylosis, left foot
CPT/HCPCS: 73630

== ENCOUNTER 2023-09-10 08:20 | Day surgery (SDC) | payer OTHER, MEDICARE, SELFPAY ==
--- OUTSIDE RECORDS SUMMARY | 2023-09-10 08:23 | XMS_ITS | CCD ---
Author Organization [facility] Care Team Providers Care Dowel Pin Man Name Role Phone House DO, Sr Jonathan Klein Primary Care Provider [phone] NIKKIE BARCLAY Referring Unavailabl e HOUSE, SR [...] Nieves Consulting Unavailable SUSSY JONES Consulting Unavailable CHERRY, DR BASURTO Attending Unavailable CHERRY, DR BASURTO Primary Care Unavailable CHERRY, DR BASURTO Admitting Unavailable CHERRY, DR JONATHAN Trimble Unavailable CHERRY, DR BASURTO Primary Care Unavailable GAETANO, DR PATTIE Nieves Consulting Unavailable LAKSHMIPATHY ., NARENDSABAS Admitting Nellie vailable LAKSHMIPATHY ., NARCAMRYNATH Attending Nellie vailable LAKSHMIPATHY ., BILLY Consulting Nellie vailable HOUSE, DR BASURTO Admitting Unavailable CHERRY, DR BASURTO Attending Unavailable CHERRY, DR BASURTO Primary Care Unavailable TOWNSEND, DR RYAN Guzman Consulting Unavailable CHERRY, DR JONATHAN Trimble Unavailable HOLM ., DR RICARDO Belcher Admitting Unavailable HOUSE, DR BASURTO Primary Care Unavailable HOLM ., DR RICARDO Belcher Attending Unavailable HOLM ., DR RICARDO Belcher Consulting Unavailable HOLM ., DR RICARDO Belcher Admitting Unavailable HOUSE, DR BASURTO Primary Care Unavailable HOLM ., DR RICARDO Belcher Attending Unavailable HOLM ., DR RICARDO Belcher Consulting Unavailable PIERCE ., RCYS Consulting Unavailable PIERCE ., CRYS Trimble Unavailable CHERRY, DR BASURTO Primary Care Unavailable HOLM ., DR RICARDO Belcher Admitting Unavailable HOLM ., DR RICARDO Belcher Attending Unavailable LAKSHMIPATHY ., BILLY Consulting Nellie vailable CHERRY, DR BASURTO Primary Care Unavailable HOLM ., [...] 12, 2017 1:00am January 15, 2017 2:23pm Emkumnwbcvjv-Zf-Ulc n-Minerals (Multiple Vitamin, Womens) Tablet (1 source) Start: 01-12-2017 End: 01-15-2017 Tihjzgrkldxg-Tb-Vp on-Minerals (Multiple Vitamin, Womens) Tablet Discontinued PO [...] PATTIE SALTER Date: 2022-06-07 11:15 Normal [facility] CBC AUTO DIFFon 04-12-2022 BASO # 0.1 103/ul Normal 0.0-0.1 [facility] Comment on above: Performed By: #### C BC ####[facility] [address] [place] [address]Dr. Ricky Valenzuela Basophils/100 WBC (Bld) 0.5 % Normal 0.2-2.0 [facility] Comment on above: Performed By: #### C BC ####[facility] [address] [place], [place] [address]Dr. Ricky Valenzuela EO # 0.3 103/ul Normal 0.0-0.7 [facility] Comment on above: Performed By: #### C BC ####[facility] [address] [place], [place] [address]Dr. Ricky Valenzuela Eosinophils/100 WBC (Bld) 3.0 % Normal 0.9-7.0 [facility] Comment on above: Performed By: #### C BC ####[facility] Gl[address] [place], [place] [address]Dr. Ricky Valenzuela Erythrocyte distribution width (RBC) [Ratio] 14.8 % Normal 11.0-15.0 [facility] Comment on above: Performed By: #### C BC ####[facility] [address] [place], [place] [address]Dr. Ricky Valenzuela Hematocrit (Bld) [Volume fraction] 40.6 % Normal 36.0-48.0 [facility] Comment on above: Performed By: #### C BC ####[facility] [address] [place], [place] [address]Dr. Ricky Valenzuela Hemoglobin (Bld) [Mass/Vol] 13.5 g/dL Normal 12.0-16.0 [facility] Comment on above: Performed By: #### C BC ####[facility] [address] [place] [id number]. Lesleysharron Nicolas IG # 0.16 10e3/ul Critically high 0.00-0.03 [facility] Comment on above: Performed By: #### C BC ####[facility] [address] [place] [id number]. Ricky Valenzuela IG % 1.4 % Critically high 0.0-0.5 [facility] Comment on above: Performed By: #### C BC ####[facility] [address] [place] [address]Dr. Ricky Valenzuela LYMPH # 3.4 103/ul Normal 1.2-3.8 [facility] Comment on above: Performed By: #### C BC ####[facility] [address] [place] [address]Dr. Ricky Valenzuela Lymphocytes/100 WBC (Bld) 30.4 % Normal 20.5-60.0 [facility] Comment on above: Performed By: #### C BC ####[facility] [address] [place] [address]Dr. Ricky Valenzuela MANUAL DIFF REQ NO Normal [facility] Comment on above: Performed By: #### C BC ####[facility] [address] [place] [id number]. Ricky Valenzuela MCH (RBC) [Entitic mass] 31.8 pg Normal 26.7-34.0 [facility] Comment on above: Performed By: #### C BC ####[facility] [address] [place] [id number]. Ricky Valenzuela MCHC (RBC) [Mass/Vol] 33.3 g/dL Normal 29.9-35.2 [facility] Comment on above: Performed By: #### C BC ####[facility] [address] [place] [phone]. Ricky Valenzuela MCV (RBC) [Entitic vol] 95.5 fL Normal 81.0-99.0 [facility] Comment on above: Performed By: #### C BC ####[facility] [address] [place] [phone]. Ricky Valenzuela MONO # 0.9 103/ul Critically high 0.3-0.8 [facility] Comment on above: Performed By: #### C BC ####[facility] [address] [place] [phone]. Ricky Valenzuela Monocytes/100 WBC (Bld) 7.7 % Normal 1.7-12.0 [facility] Comment on above: Performed By: #### C BC ####[facility] [address] [place] [id number]. Ricky Valenzuela NEUT # 6.3 103/ul Normal 1.4-6.5 [facility] Comment on above: Performed By: #### C BC ####[facility] [address] [place] [phone]. Ricky Valenzuela Neutrophils/100 WBC (Bld) 57.0 % Normal 43.0-75.0 [facility] Comment on above: Performed By: #### C BC ####[facility] [address] [place] [phone]. Ricky Valenzuela Platelet mean volume (Bld) [Entitic vol] 9.8 fL Normal 9.5-13.5 [facility] Comment on above: Performed By: #### C BC ####[facility] [address] [place] [phone]. Ricky Valenzuela PLT 246 103/ul Normal 150-450 [facility] Comment on above: Performed By: #### C BC ####[facility] [address] [place] [phone]. Ricky Valenzuela RBC 4.25 106/ul Normal 4.20-5.40 [facility] Comment on above: Performed By: #### C BC ####[facility] [address] [place] [phone]. Ricky Nicolas WBC 11.1 103/ul Critically high 4.0-11.0 [facility] Comment on above: Performed By: #### C BC ####[facility] [address] [place] [phone] Valenzuela GLYCOHEMOGLOBIN A1Con 2022 ADA RECOMMENDATION SEE BELOW Normal [facility] Comment on above: Result Comment: ADA RECOMMENDED LIMIT 4.0 - 6.0 ADA THERAPEUTIC TARGET < 7.0 ACTION SUGGESTED > 7.0 Performed By: #### A 1C ####[facility] [address] [place] [address]Dr. Ricky Valenzuela Glucose [Mass/Vol] 160 mg/dL Normal [facility] Comment on above: Performed By: #### A 1C ####[facility] [address] [place] [address]DrPasquale Valenzuela HbA1c (Bld) [Mass fraction] 7.2 % Critically high 4.5-6.2 [facility] Comment on above: Performed By: #### A 1C ####[facility] [address] [place], [place] [address]Dr. Ricky Valenzuela MICROALBUMIN, RAND URon mALB <1.3 Normal <=30.0 [facility] Comment on above: Performed By: #### M ALBR #### [facility] [address] [place] [address] Dr. Ricky Valenzuela PROF 14(COMP METB)on 023 Albumin [Mass/Vol] 3.3 g/dL Critically low 3.4-5.0 [facility] Comment on above: Performed By: #### C MP #### [facility] [address] [place] [address] Dr. Ricky Valenzuela Albumin/Globulin [Mass ratio] 0.9 {ratio} Normal [facility] Comment on above: Performed By: #### C MP #### [facility] [address] [place] [address] Dr. Ricky Valenzuela ALP [Catalytic activity/Vol] 90 U/L Normal 46-116 [facility] Comment on above: Performed By: #### C MP #### [facility] [address] [place] [address] Dr. Ricky Valenzuela ALT [Catalytic activity/Vol] 42 U/L Normal 14-59 [facility] Comment on above: Performed By: #### C MP #### [facility] [address] [place] [address] Dr. Ricky Valenzuela Anion gap [Moles/Vol] 10.1 mmol/L Normal [facility] Comment on above: Performed By: #### C MP #### [facility] [address] [place] [address] [address] Ricky Valenzuela AST [Catalytic activity/Vol] 21 U/L Normal 15-37 [facility] Comment on above: Performed By: #### C MP #### [facility] [address] [place] [address] Dr. Ricky Valenzuela Bilirubin [Mass/Vol] 0.3 mg/dL Normal 0.2-1.0 [facility] Comment on above: Performed By: #### C MP #### [facility] [address] [place] [address] Dr. Ricky Valenzuela Calcium [Mass/Vol] 9.8 mg/dL Normal 8.5-10.1 [facility] Comment on above: Performed By: #### C MP #### [facility] [address] [place] [address] Dr. Ricky Valenzuela Chloride [Moles/Vol] 99 mmol/L Normal 98-107 [facility] Comment on above: Performed By: #### C MP #### [facility] [address] [place] [address] Dr. Ricky Valenzuela CO2 [Moles/Vol] 33.7 mmol/L Critically high 21.0-32.0 [facility] Comment on above: Performed By: #### C MP #### [facility] [address] [place] [address] Dr. Ricky Valenzuela Creatinine [Mass/Vol] 0.94 mg/dL Normal 0.55-1.02 [facility] Comment on above: Performed By: #### C MP #### [facility] [address] [place] [address] Dr. Ricky Valenzuela EGFR-AF HONDURAN >60 Normal >=60 [facility] Comment on above: Performed By: #### C MP #### [facility] [address] [place] [address] [address] Ricky Valenzuela EGFR-NON AF HONDURAN >60 Normal >=60 [facility] Comment on above: Performed By: #### C MP #### [facility] [address] [place] [address] [address] Ricky Valenzuela Globulin (S) [Mass/Vol] 3.8 g/dL Normal [facility] Comment on above: Performed By: #### C MP #### [facility] [address] [place] [address] [address] Ricky Valenzuela Glucose [Mass/Vol] 168 mg/dL Critically high 74-106 T [facility] Comment on above: Performed By: #### C MP #### [facility] [address] [place] [address] Dr. Ricky Valenzuela Potassium [Moles/Vol] 4.8 mmol/L Normal 3.5-5.1 [facility] Comment on above: Performed By: #### C MP #### [facility] [address] [place] [address] [address] Ricky Valenzuela Protein [Mass/Vol] 7.1 g/dL Normal 6.4-8.2 [facility] Comment on above: Performed By: #### C MP #### [facility] [address] [place] [address] Dr. Ricky Valenzuela Sodium [Moles/Vol] 138 mmol/L Normal 136-145 [facility] Comment on above: Performed By: #### C MP #### [facility] [address] [place] [address] [address] Ricky Valenzuela Urea nitrogen [Mass/Vol] 22.0 mg/dL Critically high 7.0-18.0 [facility] Comment on above: Performed By: #### C MP #### [facility] [address] [place] [address] [address] Ricky Valenzuela Urea nitrogen/Creatinine [Mass ratio] 23.4 mg/mg Normal [facility] Comment on above: Performed By: #### C MP #### [facility] [address] [place] [address] [address] Ricky Valenzuela Cytologyon 08-30-2021 Cytology (NOTE) INTERPRETATION Vaginal material, (ThinPrep vial, Imaging-assisted review): Specimen Adequacy: Satisfactory for evaluation. Descriptive Diagnosis: Negative for intraepithelial lesion or malignancy. Project Management Specialist: CLARK Delacruz(ASCP) Electronically Signed Out zackary/09/07/2021 Source: A: Vaginal material, (ThinPrep vial, Imaging-assisted review) Clinical History Hysterectomy Surgery: Salpingostomy; Ovary removal Z12.4 Encounter for screening for malignant neoplasm of cervix GYNECOLOGIC CYTOLOGY REPORT Patient Name: KARINA DE OLIVEIRA [facility] Rec: [id number] Path Number: [id number] [facility] [employer] CONSULTING PATHOLOGISTS [facility] ANATOMIC PATHOLOGY [address] [place] [id number] Normal [facility] Comment on above: Performed By: #### P PPVP #### [address] [id number] Investor Relations Coordinator: Luca Cummins MD CBC AUTO DIFFon 08-09-2021 BASO # 0.1 103/ul Normal 0.0-0.1 [facility] Comment on above: Performed By: #### C BC #### [facility] [address] [place] [address] Dr. Ricky Valenzuela Basophils/100 WBC (Bld) 0.8 % Normal 0.2-2.0 [facility] Comment on above: Performed By: #### C BC #### [facility] [address] [place] [address] Dr. Ricky Valenzuela EO # 0.2 103/ul Normal 0.0-0.7 [facility] Comment on above: Performed By: #### C BC #### [facility] [address] [place] [address] Dr. Ricky Valenzuela Eosinophils/100 WBC (Bld) 2.1 % Normal 0.9-7.0 [facility] Comment on above: Performed By: #### C BC #### [facility] [address] [place] [address] Dr. Ricky Valenzuela Erythrocyte distribution width (RBC) [Ratio] 15.2 % Critically high 11.0-15.0 [facility] Comment on above: Performed By: #### C BC #### [facility] [address] [place] [address] Dr. Ricky Valenzuela Hematocrit (Bld) [Volume fraction] 41.5 % Normal 36.0-48.0 [facility] Comment on above: Performed By: #### C BC #### [facility] [address] [place] [address] Dr. Ricky Valenzuela Hemoglobin (Bld) [Mass/Vol] 13.5 g/dL Normal 12.0-16.0 [facility] Comment on above: Performed By: #### C BC #### [facility] [address] [place] [address] Dr. Ricky Valenzuela IG # 0.42 10e3/ul Critically high 0.00-0.03 [facility] Comment on above: Performed By: #### C BC #### [facility] [address] [place] [address] Dr. Ricky Valenzuela IG % 3.8 % Critically high 0.0-0.5 [facility] Comment on above: Performed By: #### C BC #### [facility] [address] [place] [address] Dr. Ricky Valenzuela LYMPH # 3.3 103/ul Normal 1.2-3.8 [facility] Comment on above: Performed By: #### C BC #### [facility] [address] [place] [address] Dr. Ricky Valenzuela Lymphocytes/100 WBC (Bld) 29.1 % Normal 20.5-60.0 [facility] Comment on above: Performed By: #### C BC #### [facility] [address] [place] [address] Dr. Ricky Valenzuela MANUAL DIFF REQ NO Normal [facility] Comment on above: Performed By: #### C BC #### [facility] [address] [address] [address] Ricky Valenzuela MCH (RBC) [Entitic mass] 32.4 pg Normal 26.7-34.0 [facility] Comment on above: Performed By: #### C BC #### [facility] [address] [place] [address] Dr. Ricky Valenzuela MCHC (RBC) [Mass/Vol] 32.5 g/dL Normal 29.9-35.2 [facility] Comment on above: Performed By: #### C BC #### [facility] [address] [place] [address] Dr. Ricky Valenzuela MCV (RBC) [Entitic vol] 99.5 fL Critically high 81.0-99.0 [facility] Comment on above: Performed By: #### C BC #### [facility] [address] [place] [address] Dr. Ricky Valenzuela MONO # 0.8 103/ul Normal 0.3-0.8 [facility] Comment on above: Performed By: #### C BC #### [facility] [address] [place] [address] Dr. Ricky Valenzuela Monocytes/100 WBC (Bld) 7.5 % Normal 1.7-12.0 [facility] Comment on above: Performed By: #### C BC #### [facility] [address] [place] [address] Dr. Ricky Valenzuela NEUT # 6.3 103/ul Normal 1.4-6.5 [facility] Comment on above: Performed By: #### C BC #### [facility] [address] [place] [address] Dr. Ricky Valenzuela Neutrophils/100 WBC (Bld) 56.7 % Normal 43.0-75.0 [facility] Comment on above: Performed By: #### C BC #### [facility] [address] [place] [address] Dr. Ricky Valenzuela Platelet mean volume (Bld) [Entitic vol] 9.8 fL Normal 9.5-13.5 [facility] Comment on above: Performed By: #### C BC #### [facility] [address] [place] [address] [address] Ricky Valenzuela PLT 265 103/ul Normal 150-450 [facility] Comment on above: Performed By: #### C BC #### [facility] [address] [place] [address] [address] Ricky Valenzuela RBC 4.17 106/ul Critically low 4.20-5.40 [facility] Comment on above: Performed By: #### C BC #### [facility] [address] [address] [address] Ricky Valenzuela WBC 11.2 103/ul Critically high 4.0-11.0 [facility] Comment on above: Performed By: #### C BC #### [facility] [address] [address] [address] Ricky Valenzuela GLYCOHEMOGLOBIN A1Con 2021 ADA RECOMMENDATION SEE BELOW Normal [facility] Comment on above: Result Comment: ADA RECOMMENDED LIMIT 4.0 - 6.0 ADA THERAPEUTIC TARGET < 7.0 ACTION SUGGESTED > 7.0 Performed By: #### A 1C ####[facility] [address] [place] [address]Dr. Ricky Valenzuela Glucose [Mass/Vol] 183 mg/dL Normal [facility] Comment on above: Performed By: #### A 1C ####[facility] [address] [place] [id number]. Ricky Valenzuela HbA1c (Bld) [Mass fraction] 8.0 % Critically high 4.5-6.2 [facility] Comment on above: Performed By: #### A 1C ####[facility] [address] [place] [id number]. Ricky Valenzuela LIPID PROFILEon 08-09-2021 CHOL-HDL RATIO NORM SEE BELOW Normal [facility] Comment on above: Result Comment: 3.3 - 4.4 LOW RISK 4.4 - 7.1 AVERAGE RISK 7.1 - 11.0 MODERATE RISK >11.0 HIGH RISK Performed By: #### C MP, LIPID #### [facility] [address] [address] [address] Ricky Valenzuela Cholesterol [Mass/Vol] 239 mg/dL Critically high <=200 [facility] Comment on above: Performed By: #### C MP, LIPID #### [facility] [address] [place] [address] [address] Ricky Valenzuela Cholesterol in HDL [Mass/Vol] 36 mg/dL Critically low 40-60 [facility] Comment on above: Performed By: #### C MP, LIPID #### [facility] [address] [address] [address] Ricky Valenzuela Cholesterol in LDL [Mass/Vol] 164.2 mg/dL Normal [facility] Comment on above: Performed By: #### C MP, LIPID #### [facility] [address] [address] [address] Ricky Valenzuela Cholesterol.total/Cho lesterol in HDL [Mass ratio] 6.6 {ratio} Normal [facility] Comment on above: Performed By: #### C MP, LIPID #### [facility] [address] [place] [address] [address] Ricky Valenzuela HDL NORMAL > or = 60 mg/dl - LO W CARDIOVASCULAR RISK <40 mg/dl - HIGH CARDIOVASCULAR RISK Normal [facility] Comment on above: Performed By: #### C MP, LIPID #### [facility] [address] [place] [address] [address] Ricky Valenzuela LDL CALC NORMAL SEE BELOW Normal [facility] Comment on above: Result Comment: <100 mg/dl OPTIMAL 100 - 129 mg/dl NEAR OR ABOVE OPTIMAL 130 - 159 mg/dl BORDERLINE HIGH 160 - 189 mg/dl HIGH >190 mg/dl VERY HIGH Performed By: #### C MP, LIPID #### [facility] [address] [place] [address] [address] Ricky Valenzuela Triglyceride [Mass/Vol] 194 mg/dL Critically high <=150 [facility] Comment on above: Performed By: #### C MP, LIPID #### [facility] [address] [address] [address] Ricky Valenzuela VLDL CALC 38.8 mg/dL Normal [facility] Comment on above: Performed By: #### C MP, LIPID #### [facility] [address] [address] [address] Ricky Valenzuela MICROALBUMIN, RAND URon 07-13 mALB 13.1 mg/L Normal <=30.0 [facility] Comment on above: Performed By: #### M ALBR ####[facility] [address] [place], [place] [address]VuDr. Ricky Valenzuela PROF 14(COMP METB)on 022 Albumin [Mass/Vol] 3.3 g/dL Critically low 3.4-5.0 [facility] Comment on above: Performed By: #### C MP, LIPID #### [facility] [address] [address] [address] Ricky Valenzuela Albumin/Globulin [Mass ratio] 0.8 {ratio} Normal [facility] Comment on above: Performed By: #### C MP, LIPID #### [facility] [address] [address] [address] Ricky Valenzuela ALP [Catalytic activity/Vol] 93 U/L Normal 46-116 [facility] Comment on above: Performed By: #### C MP, LIPID #### [facility] [address] [address] [address] Ricky Valenzuela ALT [Catalytic activity/Vol] 37 U/L Normal 14-59 [facility] Comment on above: Performed By: #### C MP, LIPID #### [facility] [address] [address] [address] Ricky Valenzuela Anion gap [Moles/Vol] 10.9 mmol/L Normal [facility] Comment on above: Performed By: #### C MP, LIPID #### [facility] [address] [address] [address] Ricky Valenzuela AST [Catalytic activity/Vol] 10 U/L Critically low 15-37 [facility] Comment on above: Performed By: #### C MP, LIPID #### [facility] [address] [place] [address] Dr. Ricky Valenzuela Bilirubin [Mass/Vol] 0.2 mg/dL Normal 0.2-1.0 [facility] Comment on above: Performed By: #### C MP, LIPID #### [facility] [address] [address] [address] Ricky Valenzuela Calcium [Mass/Vol] 9.0 mg/dL Normal 8.5-10.1 [facility] Comment on above: Performed By: #### C MP, LIPID #### [facility] [address] [address] [address] Ricky Valenzuela Chloride [Moles/Vol] 100 mmol/L Normal 98-107 [facility] Comment on above: Performed By: #### C MP, LIPID #### [facility] [address] [address] [address] Ricky Valenzuela CO2 [Moles/Vol] 32.2 mmol/L Critically high 21.0-32.0 [facility] Comment on above: Performed By: #### C MP, LIPID #### [facility] [address] [place] [address] Dr. Ricky Valenzuela Creatinine [Mass/Vol] 0.95 mg/dL Normal 0.55-1.02 [facility] Comment on above: Performed By: #### C MP, LIPID #### [facility] [address] [place] [address] Dr. Ricky Valenzuela EGFR-AF HONDURAN >60 Normal >=60 [facility] Comment on above: Performed By: #### C MP, LIPID #### [facility] [address] [address] [address] Ricky Valenzuela EGFR-NON AF HONDURAN >60 Normal >=60 [facility] Comment on above: Performed By: #### C MP, LIPID #### [facility] [address] [address] [address] Ricky Valenzuela Globulin (S) [Mass/Vol] 4.2 g/dL Normal [facility] Comment on above: Performed By: #### C MP, LIPID #### [facility] [address] [address] [address] Ricky Valenzuela Glucose [Mass/Vol] 200 mg/dL Critically high 74-106 [facility] Comment on above: Performed By: #### C MP, LIPID #### [facility] [address] [address] [address] Ricky Valenzuela Potassium [Moles/Vol] 4.1 mmol/L Normal 3.5-5.1 [facility] Comment on above: Performed By: #### C MP, LIPID #### [facility] [address] [address] [address] Ricky Valenzuela Protein [Mass/Vol] 7.5 g/dL Normal 6.4-8.2 [facility] Comment on above: Performed By: #### C MP, LIPID #### [facility] [address] [address] [address] Ricky Valenuzela Sodium [Moles/Vol] 139 mmol/L Normal 136-145 [facility] Comment on above: Performed By: #### C MP, LIPID #### [facility] [address] [place] [address] Dr. Ricky Valenzuela Urea nitrogen [Mass/Vol] 13.0 mg/dL Normal 7.0-18.0 [facility] Comment on above: Performed By: #### C MP, LIPID #### [facility] [address] [address] [address] Ricky Valenzuela Urea nitrogen/Creatinine [Mass ratio] 13.7 mg/mg Normal [facility] Comment on above: Performed By: #### C MP, LIPID #### [facility] [address] [place] [address] Dr. Ricky Valenzuela POINT OF CARE GLUCOSEon 06-12 Glucose [Mass/Vol] 176 mg/dL Critically high 74-106 [facility] Comment on above: Performed By: #### P OCGLUC #### [facility] [address] [address] [address] Ricky Valenzuela Vital Signs Date Time Vital Sign Value Performing Clinician Facility 01-18-2023 09:10-0500 Body height 156.21 cm Elle Hendricks Other [facility] Other 01-18-2023 09:10-0500 Body mass index (BMI) [Ratio] 42.82 kg/m2 Elle Dejesusmond Other [facility] Other 01-18-2023 09:10-0500 Body temperature 98.2 [degF] Elle Ruthie Other [facility] Other 01-18-2023 09:10-0500 Body weight 104.51 kg Elle Ruthie Other [facility] Other 01-18-2023 09:10-0500 Diastolic blood pressure 92 mm[Hg] Elle Ruthie Other [facility] Other 01-18-2023 09:10-0500 Respiratory rate 18 /min Elle Dejesusmond Other [facility] Other 01-18-2023 09:10-0500 SaO2% (BldA) [Mass fraction] 97 % Elle Hendricks Other [facility] Other 01-18-2023 09:10-0500 Systolic blood pressure 145 mm[Hg] Elle Ruthie Other [facility] Other Encounters Encounter Date Encounter Type Care Provider Facility Start: 08-22-2023 End: 08-22-2023 ambulatory CRISTINA FAWWAD Not Available Start: 08-05-2023 End: 08-05-2023 ambulatory CRISTINA FAWWAD Not Available Start: 07-04-2023 End: 07-04-2023 ambulatory CRISTINA FAWWAD Not Available Start: 05-02-2023 End: 05-02-2023 ambulatory CRISTINA FAWWAD Not Available Start: 04-30-2023 End: 04-30-2023 ambulatory [facility] Work Phone: Start: 04-30-2023 End: 04-30-2023 Patient encounter procedure [facility] Work Phone: Start: 03-21-2023 Orders Only Shaikh Maricel HOLLIS Work Phone: [facility] Comment on above: Diabetic polyneuropa thy associated with type 2 diabetes mellitus (CMS/HCC) (Primary Dx) Start: 03-19-2023 End: 03-19-2023 ambulatory Ana Luisa Curtis Other [facility] Other Start: 03-19-2023 Office outpatient vi sit 15 minutes Ana Luisa Curtis [facility] Start: 02-25-2023 End: 02-25-2023 ambulatory ELIDA GARCIA Not Available Start: 01-29-2023 End: 01-29-2023 ambulatory SHAIKH MARICEL Not Available Start: 01-23-2023 End: 01-23-2023 ambulatory Ana Luisa Curtis Other [facility] Other Start: 01-23-2023 Office outpatient vi sit 15 minutes Ana Luisa Curtis [facility] Start: 01-18-2023 End: 01-18-2023 ambulatory Elle Hendricks Other [facility] Other Start: 01-18-2023 Office outpatient vi sit 15 minutes Elle Hendricks [facility] Start: 09-19-2022 End: 09-19-2022 ambulatory Ana Luisa Curtis Other [facility] Other Start: 09-19-2022 Telephone encounter Ana Luisa Curtis [facility] Start: 07-12-[address] JONATHAN EDWARDS Facili ty:H1 Start: 06-07-2022 End: 06-08-[address] JONATHAN EDWARDS Facility:[facility]1 Start: 05-02-2022 End: 05-02-2022 ambulatory Ana Luisa Curtis Other [facility] Other Start: 05-02-2022 Office outpatient ne w 30 minutes Ana Luisa Curtis [facility] Start: 04-12-2022 End: 04-13-[address] JONATHAN EDWARDS Facility:H1 Start: 03-08-2022 End: 03-09-[address] JONATHAN EDWARDS Facility:[facility]1 Start: 02-16-2022 End: 02-17-[address] JONATHAN EDWARDS Facility:[facility]1 Start: 02-09-2022 End: 02-10-[address] RICARDO HOLM . Facility:[facility]1 Start: 11-16-2021 End: 11-17-[address] JONATHAN EDWARDS Facility:[facility]1 Start: 11-01-2021 End: 11-02-2021 ambulatory CRYS PIERCE . Facility:H1 Start: 08-30-2021 End: 08-31-2021 ambulatory [facility] Start: 08-30-2021 End: 08-30-2021 Subsequent hospital visit by physician Sr Edwards DO Work Phone: [facility] Comment on above: Routine cervical sme ar Start: 08-16-2021 Encounter for genera l adult medical examination without abnormal findings DR RICARDO HOLM . [facility] Start: 08-09-2021 End: 08-10-2021 Encounter for [...] Screening for malign ant neoplasm of colon [facility] Start: 08-30-2024 Screening for malign ant neoplasm of cervix [facility] Start: 03-20-2024 Screening for malign ant neoplasm of breast Mammogram [facility] Start: 02-27-2024 End: 02-27-2024 Patient encounter procedure 02/27/2024 11:35 AM EST [facility] [address] [place] [id number] Elida Garcia MD [address] [place] [address] [facility] Start: 02-12-2024 Glaucoma screening Diabetes: R etinopathy Screening [facility] Start: 08-11-2023 Influenza vaccination Influenza Vacc ine (#1) [facility] Comment on above: Postponed from 10/12 (Patient Refused) Start: 05-02-2023 End: 05-02-2023 Patient encounter procedure 05/02/2023 2:00 PM EDT Office Visit [facility] [address] [place] [address] Shaikh Connelly MD [address] [place] [address] [facility] Start: 02-17-2023 Hemoglobin A1c measurement Diabetes: Hemoglobin A1C [facility] Start: 09-04-2022 End: 09-04-2022 Patient encounter procedure 09/04/2022 Office Visit Obstetrics and Gynecology Nikkie Barclay, VENTILATING ENGINEER - CN [address] [facility] [address] [place] [address] [facility] Start: 10-12-2021 Influenza vaccination Flu vaccine (# 1) [facility] Start: 10-21-2013 Screening for malign ant neoplasm of breast Breast cancer screen [facility] Start: 10-21-2013 Shingles vaccine (1 of 2) Shingles vaccine (1 of 2) [facility] Start: 10-21-2008 Screening for malign ant neoplasm of colon [facility] Start: 2003 Lipid panel Lipids [facility] Start: 10-21-1998 Diabetes screen Diabetes screen [facility] Start: 10-21-1993 Screening for malign ant neoplasm of cervix [facility] Start: 10-21-1982 DTaP/Tdap/Td vaccine (1 - Tdap) DTaP/Tdap/Td vaccine (1 - Tdap) [facility] Start: 10-21-1982 Urine screening for protein Diabetes: Urine Protein Screening [facility] Start: 10-21-1981 Hepatitis C screening Hepatitis C sc reen [facility] Start: 10-21-1978 HIV screening HIV screen [facility] Start: 1975 Depression Screen Depression Screen [facility] Start: 04-20-1964 COVID-19 Vaccine (#1) COVID-19 Vacci ne (#1) [facility] Start: 1965 Screening for malign ant neoplasm of colon [facility] End: 08-30-2021 Cytopathology procedure, preparation of smear, genital source [facility] Routine Routine cervical smear 1 Occurrences starting 08/30/2021 until 08/30/2021 [facility] Work Phone: Comment on above: 1 Occurrences starti ng 08/30/2021 until 08/30/2021 Immunizations Immunization Date Immunization Notes Care Provider Tima garcia 01-14-2017 influenza, injectabl e, quadrivalent, preservative [facility] Payers Date Payer Category Payer Unknown [employer] [id number] 2022-Present [phone] [address] [address] [place] [address] [id number] 2012 Medicare MEDICARE MEDICAR E PART B [id number] 2012-[place] [place] [address] Medicare [id number]. [id number] 1963 Unknown [id number] 2.16.840.1.220756.3.579.2.17 3 1963 Unknown [id number] 2.16.840.1.924725.3.579.2.59 3 1963 Unknown [id number] 2.16.840.1.916960.3.579.2.59 3 1963 Unknown [id number] 2.16.840.1.666645.3.579.2.59 3 1963 Unknown [id number] 2.16.840.1.909389.3.579.2.59 3 1963 Unknown [id number] 2.16.840.1.544142.3.579.2.59 3 1963 Unknown [id number] 2.16.840.1.714257.3.579.2.59 3 1963 Unknown [id number] 2.16.840.1.458690.3.579.2.59 3 1963 Unknown [id number] 2.16.840.1.853383.3.579.2.59 3 1963 Unknown [id number] 2.16.840.1.904603.3.579.2.59 3 1963 Unknown [id number] 2.16.840.1.060505.3.579.2.59 3 1963 Unknown [id number] 2.16.840.1.930892.3.579.2.59 3 1963 Unknown [id number] 2.16.840.1.094911.3.579.2.59 3 1963 Unknown [id number] 2.16.840.1.965621.3.579.2.59 3 1963 Unknown [id number] 2.16.840.1.871636.3.579.2.59 3 1963 Unknown [id number] 2.16.840.1.445113.3.579.2.59 3 1963 Unknown [id number] 2.16.840.1.761892.3.579.2.59 3 1963 Unknown [id number] 2.16.840.1.603508.3.579.2.12 59 1963 Unknown [id number] 2.16.840.1.705600.3.579.2.12 59 1963 Unknown [id number] 2.16.840.1.099687.3.579.2.12 59 1963 Unknown [id number] 2.16.840.1.915951.3.579.2.12 59 1963 Unknown [id number] 2.16.840.1.530521.3.579.2.12 59 1963 Unknown [id number] 2.16.840.1.814176.3.579.2.12 59 1959 Medicare [id number] 1.2.840.148433.1.13.239.2.7. 3.532785.315 1959 Unknown [id number] 1.2.840.607344.1.13.239.2.7. 3.708559.315 1959 Unknown [id number] 2.16.840.1.849936.19 Medicare Medicare [id number] Self-pay Self Pay [id number] Social History Date Type Detail Facility Start: 08-30-2021 [facility] [employer] Phone: History of tobacco use Cigarette Smoker [facility] [employer] Phone: Start: 08-30-2021 End: 01-29-2023 Tobacco use and exposure Smokeless tobacco non-user [employer] Phone: Start: 08-30-2021 Alcohol intake Current drinke r of alcohol (finding) [employer] Phone: Start: 08-30-2021 History SDOH Alcohol Comment occasional [employer] Phone: Start: 1965 Sex Assigned At Not on file [facility] [employer] Phone: Start: 08-20-2021 End: 08-30-2021 Exposure to SARS-CoV-2 (event) Not sure [employer] Start: 02-25-2023 Sex Assigned At N R17 Other Start: 01-23-2023 End: 01-29-2023 Tobacco smoking status [facility] Ex-smoker [facility] History of tobacco use Current smoker [facility] Start: 01-29-2023 End: 02-25-2023 Cigarettes smoked current (pack per day) - Reported 0.5 [facility] Start: 02-25-2023 Alcohol intake Lifetime non-d gus (finding) [facility] Start: 1965 Sex Assigned At Female F [facility] Medical Equipment Procedure Code Equipment Code Equipment Origin al Text Equipment Identifier Dates USE TO TEST BLOO D SUGAR TWICE DAILY [id number] Start: 06-08-2021 Clinical Notes 06-20-2021 to 03-19-2023 [...] Mar, Left hand pain (ICD-10 - M79.642) [facility] Other 12-13-2023 Evaluation note* Encounter Date Diagnosis [...] noted. Patient will f/u in 4 weeks. [facility] Other 12-08-2023 Evaluation note* Encounter Date Diagnosis [...] left hand x-ray that was performed at [facility] which revealed degenerative changes in the hand as well as a remote avulsion fracture of the thumb. Patient states her family doctor is treating her for gout in her hand. Jan, History of gout (ICD-10 - Z87.39) Jan, Other Gout material w as printed [facility] Other 08-09-2023 Evaluation note* Encounter Date Diagnosis Assessment Notes Treatment Notes Treatment Clinical Notes Sep, Right wrist pain (ICD-10 - M25.531) [facility] Other 04-27-2023 NoteCONSULTATION CONSULTATION DATE: 06/07/2022 TO: [...] our patients to inform us about any jwac-vmh-wydasdy medications or herbal remedies/nutritional supplements/alternative remedies. 2. [...] treatment options with their primary care provider.[id number] Evaluation note * Encounter Date Diagnosis Assessment [...] understanding and is agreeable to treatment plan. [facility] Other 01-26-2023 NoteCONSULTATION PROCEDURE DATE: 03/08/2022 PREOPERATIVE [...] will be followed up in the clinic.[id number] NotePROCEDURE: XR KNEE LT 4V or > [...] Electronically authenticated by: PATTIE SALTER Date: 2022-02-16 11:29[facility]12-30-2022 NoteCONSULTATION CONSULTATION DATE: 02/09/2022 HISTORY OF [...] office today. Patient agrees with this plan.[facility]Yckrdwhf53-15-4936 NotePROCEDURE: XR WRIST RT MIN 3 V COMPARISON: None. HISTORY: Injury of right wrist FINDINGS: BONES:No acute fracture or dislocation. Corticated bone fragment identified along the first carpometacarpal joint [degenerative in nature SOFT TISSUES:Moderate diffuse soft tissue swelling EFFUSION:None visible. OTHER: Negative. IMPRESSION: Soft tissue swelling, no acute fracture Electronically authenticated by: RYAN GOLDMAN Date: 2021-11-16 18:59[facility]09-21-2022 NoteCONSULTATION CONSULTATION DATE: 11/01/2021 HISTORY OF [...] otherwise indicated. Patient agrees with this plan.[facility]Gmyxauqz51-79-3614 NoteCONSULTATION PROCEDURE DATE: 11/01/2021 PRE AND POSTOPERATIVE [...] will be followed up in the clinic.[facility]Pciswwpt14-17-1450 NoteCONSULTATION PROCEDURE DATE: 08/09/2021 PREOPERATIVE DIAGNOSIS: Bilateral [...] will be followed up in the clinic. PSYCHIATRIC Signed and Approved by: CRYS PIERCE . 08/10/2021 13:37:00[facility]Jgkmsrzt72-28-8158 NoteCONSULTATION CONSULTATION DATE: 07/19/2021 HISTORY OF PRESENT [...] injections. Patient acknowledges and all questions answered. PSYCHIATRIC Signed and Approved by: CRYS PIERCE . 07/20/2021 10:33:00[facility]05-25-2022 NotePROCEDURE: XR FOOT RT MIN 3 [...] Electronically authenticated by: PATTIE SALTER Date: 2021-07-05 11:11[facility]05-10-2022 NoteCONSULTATION CONSULTATION DATE: 06/20/2021 CHIEF COMPLAINT: [...] like to proceed. CC: Jonathan Edwards M.D. PSYCHIATRIC Signed and Approved by: DR RICARDO HOLM . 06/27/2021 10:40:00[facility] note* Diagnosis Routine cervical smear Screening for malignant neoplasm of the cervix documented in this encounter [facility] Work Phone: evaluation note* Diagnosis Diabetic polyneuropathy associated with type 2 diabetes mellitus ([facility])- Primary documented in this encounter [facility] HealthcareEvaluation noteNo assessment information availableGalion [facility] Work Phone: History general Narrative - Reported* Type Description Date Medical History GERD (gastroesophageal reflux di sease) Medical History Migraine headache Medical History Arthritis Medical History Edema of both legs Medical History Diabetes mellitus, type 2 Medical History Chronic back pain Surgical History ablasion Surgical History back surgery Surgical History hysterectomy Surgical History tubal ligation Hospitalization History see above [facility] Other Summary Purpose Family History No Family [...] Care Teams (unrecognized sec tion and content) Dowel Pin Man Relationship Specialty Start Date End Date Sr Jonathan Edwards DO [address] [place] [address] PCP - General Family Medicine 08/30/21 Dowel Pin Man Relationship Specialty Start Date End Date Shaikh [...] DATE CREATED AUTHOR AUTHOR'S ORGANIZ ATION 08/28/2023 [facility] Specialists EPIC REASON FOR VISIT [...] BE BASED ON THE PRIMARY CLINICAL RECORDS. [employer] [facility]. provides no warranty or guarantee of the accuracy or completeness of information in this document.
[2023-09-10 08:28] VITALS: BP 137/85; PULSE 90; TEMP 36.8; O2SAT 95
[2023-09-10 08:36] LABS: Glucometer 108 mg/dL (74-106)
[2023-09-10 09:10] VITALS: BP 156/74; BP 170/88; PULSE 97; O2SAT 91; O2SAT 92
[2023-09-10] MEDS: METHYLPREDNISOLONE ACETATE 80 MG/ML VIAL INJ (09:16)
[2023-09-10] MEDS: BUPIVACAINE HCL 0.25% PF 25 MG/10 ML VIAL 2 ML INJ (09:16)
[2023-09-10] MEDS: 0.9 % SODIUM CHLORIDE 10 ML SYRINGE - SALINE FLUSH 2 ML INJ (09:16)
[2023-09-10] MEDS: IOHEXOL 240 MG/ML - 10 ML VIAL 12 MG INJ (09:16)
[2023-09-10] MEDS: LIDOCAINE HCL 2% 400 MG/20 ML MDV 3 ML INJ (09:17)
--- NOTE | 2023-09-10 10:03 | P.ON_ITS ---
Date of procedure: 09/10/23 Pre-op diagnosis: lumbar stenosis with Neurogenic claudication Post-op diagnosis: same as pre-op Procedure: Lumbar 2/3 Epidural Steroid Injection Under fluoroscopic guidance Immediate complications none Solution used for injection: Marcaine 0.25% 2mL, 2cc Normal saline, Depo-Medrol 80mg Omnipaque 3 mL Anesthesia local 2% lidocaine up to 4ml Timeout process compliant After informed consent obtained. Patient brought to the procedure room placed in the prone position. Skin overlying the area was prepped and draped in a sterile fashion using betadine. 25 gauge needle used to raise a skin wheel with local anesthetic over the target area identified under fluoroscopy. A 17 gauge Touhy needle Was inserted over the anesthetized area and directed towards the inter- space under fluoroscopic guidance. Epidural space was identified with loss of resistance technique to air. Needle Tip placement confirmed with injection of contrast solution in AP and Lateral views. Steroid solution was then injected. Anesthesia: Local Surgeon: Kenyon Bradford Condition: stable Disposition: PACU
== END 2023-09-10 09:19 | disposition home or self-care (01) ==
LOC: SURGOUT 08:21
PROVIDERS: PCP Internal Medicine; Visit Provider Anesthesiology Pain Medicine
DX: M48.062 Spinal stenosis, lumbar region with neurogenic claudication (principal)
CPT/HCPCS: 36415; 62323; 82948; J0665; J1010; Q9966

== ENCOUNTER 2023-09-12 12:48 | Outpatient (OUT) | payer OTHER, MEDICARE, SELFPAY ==
--- NOTE | 2023-09-12 12:51 | CT_ITS ---
The [address] [address] Patient Name: KARINA DE OLIVEIRA MRN: [id number] date: 1965 Sex: F Assigned Patient Location: CT Current Patient Location: Accession/Order Number: [id number] Exam Date: 09/12/2023 12:57 Report Date: 09/13/2023 05:02 At the request of: SUSSY JONES Procedure: CT foot LT wo con EXAMINATION: CT foot LT wo con HISTORY: Lisfranc fracture COMPARISON: XR foot left 09/03/2023, CT foot left 06/08/2023 TECHNIQUE: Multi-planar CT images were created without and/or with IV contrast according to examination type. Dose reduction techniques were achieved by using automated exposure control and/or adjustment of mA and/or kV according to patient size and/or use of iterative reconstruction technique. FINDINGS: BONES: Mechanical fusion of the first tarsal-metatarsal joint via dorsal plate and screws; no appreciable hardware fracture or loosening. Suspect ongoing bone healing of multiple fracture fragments of the medial, and possibly the middle, cuneiform. Stable alignment and ongoing healing fractures involving base of fourth and 5th metatarsals. Callus formation along margins of mid diaphyseal fracture of second metatarsal, but concern for movement and nonhealing. SOFT TISSUES: Soft tissue swelling/edema of the midfoot and forefoot. EFFUSION: None visible. OTHER: Negative. CT/CT foot LT wo con IMPRESSION: 1. Stable surgical changes without evidence of hardware failure. 2. Suspect ongoing bone healing at all fracture sites. There is concern for possible nonunion/movement of the second metatarsal mid diaphyseal fracture. Electronically authenticated by: PATTIE SALTER Date: 09/13/2023 05:02
--- OUTSIDE RECORDS SUMMARY | 2023-09-12 12:51 | XMS_ITS ---
Author Name Auto Generated Organization OHIP Care Team Providers Care Millinery Blocker Name Role Phone ALICIA GARCIA Attending Unavailable SHAIKH GRAVES Attending Unavailable SHAIKH GRAVES Attending Unavailable SHAIKH GRAVES Attending Unavailable SHAIKH GRAVES Attending Unavailable SHAIKH GRAVES Attending Unavailable PROBLEMS No Problem Records Found PROCEDURES No Procedure Records Found RESULTS ALLERGIES No Allergies Records Found ENCOUNTERS ADMIT/DISCHARGE ACCOUNT NUMBER ADMITTING ENCOUNTER CLASS LOCATION SOURCE 08/22/2023/ 4 [id number] Ambulatory Building:[facility] 08/05/2023/ 4 [id number] Ambulatory Building:[facility] 07/04/2023/ 4 [id number] Ambulatory Building:[facility] 05/02/2023/ 4 [id number] Ambulatory Building:[facility] 02/25/2023/ 4 [id number] [facility]/29/[facility]23/ 3 [id number] Ambulatory Building:[facility] EPIC PAYERS ENCOUNTER GUARANTOR PAYER SUBSCRIBER SOURCE 08/22/2023 KARINA DE OLIVEIRAB: [address] [id number]: (HP) Primary Insurance:MEDICARE Policy Number: [id number] Date:7305-33-05Akx n Name:Medicare KARINA DE OLIVEIRADOB: [id number] [address] [address] [id number] [facility] EPIC 08/22/2023 Secondary Insurance:HEALTHSC OPEPolicy Number: [id number] ve Date:2023-02-11 KARINA Roger ALVINODOB: [id number] [address] [id number] [facility] EPIC 08/05/2023 KARINA Roger ALVINODOB: [address] [phone]: (HP) Primary Insurance:HEALTHSC OPEPolicy Number: [id number] Date:2022-02-11 OBED STIFFLERDOB: [id number] [place] [id number] [facility] EPIC 08/05/2023 Secondary Insurance:MEDICARE Policy Number: [id number] Date:0462-73-69Lex n Name:Medicare KARINA Roger STIFFLERDOB: [id number] [place] [id number] [facility] EPIC 07/04/2023 KARINA Roger STIFFLERDOB: [place] [phone]: (HP) Primary Insurance:HEALTHSC OPEPolicy Number: [id number] Date:2022-02-11 OBED CALVINLERDOB: [id number] [place] [id number] [facility] EPIC 07/04/2023 Secondary Insurance:MEDICARE Policy Number: [id number] ve Date:5213-27-70Mma n Name:Medicare KARINA CALVINLERDOB: [id number] [place] [id number] [facility] EPIC 05/02/2023 KARINA Roger STIFFLERDOB: [place] [phone]: (HP) Primary Insurance:HEALTHSC OPEPolicy Number: [id number] Date:2022-02-11 OBED STIFFLERDOB: [id number] [address] [facility] EPIC 05/02/2023 Secondary Insurance:MEDICARE Policy Number: [id number] Date:1638-51-49Ulz n Name:Medicare KARINA Roger STIFFLERDOB: [id number] [address] [facility] EPIC 02/25/2023 KARINA Roger STIFFLERDOB: [place] [phone]: (HP) Primary Insurance:HEALTHSC OPEPolicy Number: [id number] Date:2022-02-11 OBED STIFFLERDOB: [id number] [place] [id number] [facility] EPIC 02/25/2023 Secondary Insurance:MEDICARE Policy Number: [id number] Date:5893-95-74Bjw n Name:Medicare KARINA Roger STIFFLERDOB: [id number] [place] [id number] [facility] EPIC 01/29/2023 KARINA Roger STIFFLERDOB: [place] [id number]: (HP) Primary Insurance:HEALTHSC OPEPolicy Number: [id number] Date:2022-02-11 OBED STIFFLERDOB: [id number] [place] [id number] [facility] EPIC
== END 2023-09-12 12:49 | disposition home or self-care (01) ==
LOC: CT 12:48
PROVIDERS: PCP Internal Medicine; Visit Provider Podiatrist Foot & Ankle Surgery
DX: S92.202D Fracture of unspecified tarsal bone(s) of left foot, subsequent encounter for fracture with routine healing (principal); M24.675 Ankylosis, left foot
CPT/HCPCS: 73700

== ENCOUNTER 2023-09-26 09:42 | Outpatient (OUT) | payer OTHER, MEDICARE, SELFPAY ==
--- OUTSIDE RECORDS SUMMARY | 2023-09-26 09:52 | XMS_ITS | CCD ---
Author Organization [facility] Care Team Providers Care Sales Merchandiser Name Role Phone House DO, Sr Jonathan Klein Primary Care Provider NIKKIE BARCLAY Referring Unavailabl e HOUSE, SR JONATHAN Klein Primary Care Unavailable Ana Luisa Curtis Unavailable GRACE, DR BASURTO Primary Care Unavailable HOLM ., DR RICARDO Belcher Admitting Unavailable HOLM ., DR RICARDO Belcher Attending Unavailable PIERCE ., CYRS Consulting Unavailable HOLM ., DR RICARDO Belcher [...] Nieves Consulting Unavailable SUSSY JONES Consulting Unavailable LAKESIDE, DR BASURTO Attending Unavailable LAKESIDE, DR BASURTO Primary Care Unavailable LAKESIDE, DR BASURTO Admitting Unavailable LAKESIDE, DR JONATHAN Trimble Unavailable LAKESIDE, DR BASURTO Primary Care Unavailable GAETANO, DR PATTIE Nieves Consulting Unavailable LAKSHMIPATHY ., NARENDSABAS Admitting Nellie vailable LAKSHMIPATHY ., NARCAMRYNATH Attending Nellie vailable LAKSHMIPATHY ., BILLY Consulting Nellie vailable HOUSE, DR BASURTO Admitting Unavailable LAKESIDE, DR BASURTO Attending Unavailable LAKESIDE, DR BASURTO Primary Care Unavailable [place], DR RYAN Guzman Consulting Unavailable LAKESIDE, DR JONATHAN Trimble Unavailable HOLM ., DR [...] Consulting Unavailable PIERCE ., CRYS Trimble Unavailable LAKESIDE, DR BASURTO Primary Care Unavailable HOLM ., DR RICARDO Belcher Admitting Unavailable HOLM ., DR RICARDO Belcher Attending Unavailable LAKSHMIPATHY ., BILLY Consulting Nellie vailable LAKESIDE, DR BASURTO Primary Care Unavailable HOLM ., DR RICARDO Belcher Admitting Unavailable HOLM ., DR RICARDO Belcher Attending Unavailable PIERCE ., CRYS Consulting Unavailable Elle Hendricks Unavailable Shaikh Connelly MD Primary Care Provider [phone] ELIDA GARCIA Attending Unavailable SHAIKH CONNELLY Attending [...] 12, 2017 1:00am January 15, 2017 2:23pm Foddjikmqpay-Se-Qhf n-Minerals (Multiple Vitamin, Womens) Tablet (1 source) Start: 01-12-2017 End: 01-15-2017 Xkngzeomdunt-Pg-Ux on-Minerals (Multiple Vitamin, Womens) Tablet Discontinued PO [...] PATTIE SALTER Date: 2022-06-07 11:15 Normal [facility] CBC AUTO DIFFon 04-12-2022 BASO # 0.1 103/ul Normal 0.0-0.1 [facility] Comment on above: Performed By: #### C BC ####[facility] [address] [place] [address]Dr. Ricky Valenzuela Basophils/100 WBC (Bld) 0.5 % Normal 0.2-2.0 [facility] Comment on above: Performed By: #### C BC ####[facility] [address] [place], [place] [address]Dr. Ricky Valenzuela EO # 0.3 103/ul Normal 0.0-0.7 [facility] Comment on above: Performed By: #### C BC ####[facility] [address] [place], [place] [address]Dr. Ricky Valenzuela Eosinophils/100 WBC (Bld) 3.0 % Normal 0.9-7.0 [facility] Comment on above: Performed By: #### C BC ####[facility] [address] [place], [place] [address]Dr. Ricky Valenzuela Erythrocyte distribution width (RBC) [Ratio] 14.8 % Normal 11.0-15.0 [facility] Comment on above: Performed By: #### C BC ####[facility] [address] [place], [place] [address]Dr. Ricky Valenzuela Hematocrit (Bld) [Volume fraction] 40.6 % Normal 36.0-48.0 [facility] Comment on above: Performed By: #### C BC ####[facility] [address] [place], [place] [address]Dr. Ricky Valenzuela Hemoglobin (Bld) [Mass/Vol] 13.5 g/dL Normal 12.0-16.0 [facility] Comment on above: Performed By: #### C BC ####[facility] [address] [place] [id number]. Lesleysharron Nicolas IG # 0.16 10e3/ul Critically high 0.00-0.03 [facility] Comment on above: Performed By: #### C BC ####[facility] [address] [place] [id number]. Ricky Valenzuela IG % 1.4 % Critically high 0.0-0.5 [facility] Comment on above: Performed By: #### C BC ####[facility] [address] [place] [address]Dr. Ricky Valenzuela LYMPH # 3.4 103/ul Normal 1.2-3.8 [facility] Comment on above: Performed By: #### C BC ####[facility] [address] [place] [address]Dr. Ricky Valenzuela Lymphocytes/100 WBC (Bld) 30.4 % Normal 20.5-60.0 [facility] Comment on above: Performed By: #### C BC ####[facility] [address] [place] [address]Dr. Ricky Valenzuela MANUAL DIFF REQ NO Normal [facility] Comment on above: Performed By: #### C BC ####[facility] [address] [place] [id number]. Ricky Valenzuela MCH (RBC) [Entitic mass] 31.8 pg Normal 26.7-34.0 [facility] Comment on above: Performed By: #### C BC ####[facility] [address] [place] [id number]. Ricky Valenzuela MCHC (RBC) [Mass/Vol] 33.3 g/dL Normal 29.9-35.2 [facility] Comment on above: Performed By: #### C BC ####[facility] [address] [place] [id number]. Ricky Valenzuela MCV (RBC) [Entitic vol] 95.5 fL Normal 81.0-99.0 [facility] Comment on above: Performed By: #### C BC ####[facility] [address] [place] [id number]. Ricky Valenzuela MONO # 0.9 103/ul Critically high 0.3-0.8 [facility] Comment on above: Performed By: #### C BC ####[facility] [address] [place] [id number]. Ricky Valenzuela Monocytes/100 WBC (Bld) 7.7 % Normal 1.7-12.0 [facility] Comment on above: Performed By: #### C BC ####[facility] [address] [place] [id number]. Ricky Valenzuela NEUT # 6.3 103/ul Normal 1.4-6.5 [facility] Comment on above: Performed By: #### C BC ####[facility] [address] [place] [id number]. Ricky Valenzuela Neutrophils/100 WBC (Bld) 57.0 % Normal 43.0-75.0 [facility] Comment on above: Performed By: #### C BC ####[facility] [address] [place] [id number]. Ricky Valenzuela Platelet mean volume (Bld) [Entitic vol] 9.8 fL Normal 9.5-13.5 [facility] Comment on above: Performed By: #### C BC ####[facility] [address] [place] [id number]. Ricky Valenzuela PLT 246 103/ul Normal 150-450 [facility] Comment on above: Performed By: #### C BC ####[facility] [address] [place] [id number]. Ricky Valenzuela RBC 4.25 106/ul Normal 4.20-5.40 [facility] Comment on above: Performed By: #### C BC ####[facility] [address] [place] [id number]. Ricky Nicolas WBC 11.1 103/ul Critically high 4.0-11.0 The [facility] Comment on above: Performed By: #### C BC ####[facility] [address] [place] [id number] Valenzuela GLYCOHEMOGLOBIN A1Con 2022 ADA RECOMMENDATION SEE BELOW Normal [facility] Comment on above: Result Comment: ADA RECOMMENDED LIMIT 4.0 - 6.0 ADA THERAPEUTIC TARGET < 7.0 ACTION SUGGESTED > 7.0 Performed By: #### A 1C ####[facility] [address] [place] [address]Dr. Ricky Valenzuela Glucose [Mass/Vol] 160 mg/dL Normal [facility] Comment on above: Performed By: #### A 1C ####[facility] [address] [place] [address]DrPasquale Valenzuela HbA1c (Bld) [Mass fraction] 7.2 % Critically high 4.5-6.2 [facility] Comment on above: Performed By: #### A 1C ####[facility] [address] [place], [place] [address]Dr. Ricky Valenzuela MICROALBUMIN, RAND URon mALB <1.3 Normal <=30.0 [facility] Comment on above: Performed By: #### M ALBR #### [facility] [address] [place] [address] Dr. Ricky Valenzuela PROF 14(COMP METB)on 023 Albumin [Mass/Vol] 3.3 g/dL Critically low 3.4-5.0 [facility] Comment on above: Performed By: #### C MP #### [facility] [address] [place] [address] Dr. Ricky Valenzuela Albumin/Globulin [Mass ratio] 0.9 {ratio} Normal [facility] Comment on above: Performed By: #### C MP #### [facility] [address] [place] [address] Dr. Ricky Valenzuela ALP [Catalytic activity/Vol] 90 U/L Normal 46-116 [facility] Comment on above: Performed By: #### C MP #### [facility] [address] [place] [address] Dr. Ricky Valenzuela ALT [Catalytic activity/Vol] 42 U/L Normal 14-59 [facility] Comment on above: Performed By: #### C MP #### [facility] [address] [place] [address] Dr. Ricky Valenzuela Anion gap [Moles/Vol] 10.1 mmol/L Normal [facility] Comment on above: Performed By: #### C MP #### [facility] [address] [address] [address] Ricky Valenzuela AST [Catalytic activity/Vol] 21 U/L Normal 15-37 [facility] Comment on above: Performed By: #### C MP #### [facility] [address] [place] [address] Dr. Ricky Valenzuela Bilirubin [Mass/Vol] 0.3 mg/dL Normal 0.2-1.0 [facility] Comment on above: Performed By: #### C MP #### [facility] [address] [place] [address] Dr. Ricky Valenzuela Calcium [Mass/Vol] 9.8 mg/dL Normal 8.5-10.1 [facility] Comment on above: Performed By: #### C MP #### [facility] [address] [place] [address] Dr. Ricky Valenzuela Chloride [Moles/Vol] 99 mmol/L Normal 98-107 [facility] Comment on above: Performed By: #### C MP #### [facility] [address] [place] [address] Dr. Ricky Valenzuela CO2 [Moles/Vol] 33.7 mmol/L Critically high 21.0-32.0 [facility] Comment on above: Performed By: #### C MP #### [facility] [address] [place] [address] Dr. Ricky Valenzuela Creatinine [Mass/Vol] 0.94 mg/dL Normal 0.55-1.02 [facility] Comment on above: Performed By: #### C MP #### [facility] [address] [place] [address] Dr. Ricky Valenzuela EGFR-AF FAROESE >60 Normal >=60 [facility] Comment on above: Performed By: #### C MP #### [facility] [address] [address] [address] Ricky Valenzuela EGFR-NON AF FAROESE >60 Normal >=60 [facility] Comment on above: Performed By: #### C MP #### [facility] [address] [address] [address] Ricky Valenzuela Globulin (S) [Mass/Vol] 3.8 g/dL Normal [facility] Comment on above: Performed By: #### C MP #### [facility] [address] [address] [address] Ricky Valenzuela Glucose [Mass/Vol] 168 mg/dL Critically high 74-106 T [facility] Comment on above: Performed By: #### C MP #### [facility] [address] [place] [address] Dr. Ricky Valenzuela Potassium [Moles/Vol] 4.8 mmol/L Normal 3.5-5.1 [facility] Comment on above: Performed By: #### C MP #### [facility] [address] [address] [address] Ricky Valenzuela Protein [Mass/Vol] 7.1 g/dL Normal 6.4-8.2 [facility] Comment on above: Performed By: #### C MP #### [facility] [address] [place] [address] Dr. Ricky Valenzuela Sodium [Moles/Vol] 138 mmol/L Normal 136-145 [facility] Comment on above: Performed By: #### C MP #### [facility] [address] [address] [address] Ricky Valenzuela Urea nitrogen [Mass/Vol] 22.0 mg/dL Critically high 7.0-18.0 [facility] Comment on above: Performed By: #### C MP #### [facility] [address] [address] [address] Ricky Valenzuela Urea nitrogen/Creatinine [Mass ratio] 23.4 mg/mg Normal [facility] Comment on above: Performed By: #### C MP #### [facility] [address] [address] [address] Ricky Valenzuela Cytologyon 08-30-2021 Cytology (NOTE) INTERPRETATION Vaginal material, (ThinPrep vial, Imaging-assisted review): Specimen Adequacy: Satisfactory for evaluation. Descriptive Diagnosis: Negative for intraepithelial lesion or malignancy. Commercial Sewing Instructor: CLARK Delacruz(ASCP) Electronically Signed Out zackary/09/07/2021 Source: A: Vaginal material, (ThinPrep vial, Imaging-assisted review) Clinical History Hysterectomy Surgery: Salpingostomy; Ovary removal Z12.4 Encounter for screening for malignant neoplasm of cervix GYNECOLOGIC CYTOLOGY REPORT Patient Name: KARINA DE OLIVEIRA [facility] Rec: [id number] Path Number: [id number] [facility] ANATOMIC PATHOLOGY [address] [place] [phone] Normal [facility] Comment on above: Performed By: #### P PPVP #### [address] [id number] Consulting Sales Manager: Luca Cummins MD CBC AUTO DIFFon 08-09-2021 BASO # 0.1 103/ul Normal 0.0-0.1 [facility] Comment on above: Performed By: #### C BC #### [facility] [address] [place] [address] Dr. Ricky Valenzuela Basophils/100 WBC (Bld) 0.8 % Normal 0.2-2.0 [facility] Comment on above: Performed By: #### C BC #### [facility] [address] [place] [address] Dr. Ricky Valenzuela EO # 0.2 103/ul Normal 0.0-0.7 [facility] Comment on above: Performed By: #### C BC #### [facility] [address] [place] [address] Dr. Ricky Valenzuela Eosinophils/100 WBC (Bld) 2.1 % Normal 0.9-7.0 [facility] Comment on above: Performed By: #### C BC #### [facility] [address] [place] [address] Dr. Ricky Valenzuela Erythrocyte distribution width (RBC) [Ratio] 15.2 % Critically high 11.0-15.0 [facility] Comment on above: Performed By: #### C BC #### [facility] [address] [place] [address] Dr. Ricky Valenzuela Hematocrit (Bld) [Volume fraction] 41.5 % Normal 36.0-48.0 [facility] Comment on above: Performed By: #### C BC #### [facility] [address] [place] [address] Dr. Ricky Valenzuela Hemoglobin (Bld) [Mass/Vol] 13.5 g/dL Normal 12.0-16.0 [facility] Comment on above: Performed By: #### C BC #### [facility] [address] [place] [address] Dr. Ricky Valenzuela IG # 0.42 10e3/ul Critically high 0.00-0.03 [facility] Comment on above: Performed By: #### C BC #### [facility] [address] [place] [address] Dr. Ricky Valenzuela IG % 3.8 % Critically high 0.0-0.5 [facility] Comment on above: Performed By: #### C BC #### [facility] [address] [place] [address] Dr. Ricky Valenzuela LYMPH # 3.3 103/ul Normal 1.2-3.8 [facility] Comment on above: Performed By: #### C BC #### [facility] [address] [place] [address] Dr. Ricky Valenzuela Lymphocytes/100 WBC (Bld) 29.1 % Normal 20.5-60.0 [facility] Comment on above: Performed By: #### C BC #### [facility] [address] [place] [address] Dr. Ricky Valenzuela MANUAL DIFF REQ NO Normal [facility] Comment on above: Performed By: #### C BC #### [facility] [address] [address] [address] Ricky Valenzuela MCH (RBC) [Entitic mass] 32.4 pg Normal 26.7-34.0 [facility] Comment on above: Performed By: #### C BC #### [facility] [address] [place] [address] Dr. Ricky Valenzuela MCHC (RBC) [Mass/Vol] 32.5 g/dL Normal 29.9-35.2 [facility] Comment on above: Performed By: #### C BC #### [facility] [address] [place] [address] Dr. Ricky Valenzuela MCV (RBC) [Entitic vol] 99.5 fL Critically high 81.0-99.0 [facility] Comment on above: Performed By: #### C BC #### [facility] [address] [place] [address] Dr. Ricky Valenzuela MONO # 0.8 103/ul Normal 0.3-0.8 [facility] Comment on above: Performed By: #### C BC #### [facility] [address] [place] [address] Dr. Ricky Valenzuela Monocytes/100 WBC (Bld) 7.5 % Normal 1.7-12.0 [facility] Comment on above: Performed By: #### C BC #### [facility] [address] [place] [address] Dr. Ricky Valenzuela NEUT # 6.3 103/ul Normal 1.4-6.5 [facility] Comment on above: Performed By: #### C BC #### [facility] [address] [place] [address] Dr. Ricky Valenzuela Neutrophils/100 WBC (Bld) 56.7 % Normal 43.0-75.0 [facility] Comment on above: Performed By: #### C BC #### [facility] [address] [place] [address] Dr. Ricky Valenzuela Platelet mean volume (Bld) [Entitic vol] 9.8 fL Normal 9.5-13.5 [facility] Comment on above: Performed By: #### C BC #### [facility] [address] [address] [address] Ricky Valenzuela PLT 265 103/ul Normal 150-450 [facility] Comment on above: Performed By: #### C BC #### [facility] [address] [address] [address] Ricky Valenzuela RBC 4.17 106/ul Critically low 4.20-5.40 [facility] Comment on above: Performed By: #### C BC #### [facility] [address] [address] [address] Ricky Valenzuela WBC 11.2 103/ul Critically high 4.0-11.0 [facility] Comment on above: Performed By: #### C BC #### [facility] [address] [address] [address] Ricky Valenzuela GLYCOHEMOGLOBIN A1Con 2021 ADA RECOMMENDATION SEE BELOW Normal [facility] Comment on above: Result Comment: ADA RECOMMENDED LIMIT 4.0 - 6.0 ADA THERAPEUTIC TARGET < 7.0 ACTION SUGGESTED > 7.0 Performed By: #### A 1C ####[facility] [address] [place] [address]Dr. Ricky Valenzuela Glucose [Mass/Vol] 183 mg/dL Normal [facility] Comment on above: Performed By: #### A 1C ####[facility] [address] [place] [id number]. Ricky Valenzuela HbA1c (Bld) [Mass fraction] 8.0 % Critically high 4.5-6.2 [facility] Comment on above: Performed By: #### A 1C ####[facility] [address] [place] [id number]. Ricky Valenzuela LIPID PROFILEon 08-09-2021 CHOL-HDL RATIO NORM SEE BELOW Normal [facility] Comment on above: Result Comment: 3.3 - 4.4 LOW RISK 4.4 - 7.1 AVERAGE RISK 7.1 - 11.0 MODERATE RISK >11.0 HIGH RISK Performed By: #### C MP, LIPID #### [facility] [address] [address] [address] Ricky Valenzuela Cholesterol [Mass/Vol] 239 mg/dL Critically high <=200 [facility] Comment on above: Performed By: #### C MP, LIPID #### [facility] [address] [address] [address] Ricky Valenzuela Cholesterol in HDL [Mass/Vol] 36 mg/dL Critically low 40-60 [facility] Comment on above: Performed By: #### C MP, LIPID #### [facility] [address] [address] [address] Ricky Valenzuela Cholesterol in LDL [Mass/Vol] 164.2 mg/dL Normal [facility] Comment on above: Performed By: #### C MP, LIPID #### [facility] [address] [address] [address] Ricky Valenzuela Cholesterol.total/Cho lesterol in HDL [Mass ratio] 6.6 {ratio} Normal [facility] Comment on above: Performed By: #### C MP, LIPID #### [facility] [address] [address] [address] Ricky Valenzuela HDL NORMAL > or = 60 mg/dl - LO W CARDIOVASCULAR RISK <40 mg/dl - HIGH CARDIOVASCULAR RISK Normal [facility] Comment on above: Performed By: #### C MP, LIPID #### [facility] [address] [address] [address] Ricky Valenzuela LDL CALC NORMAL SEE BELOW Normal [facility] Comment on above: Result Comment: <100 mg/dl OPTIMAL 100 - 129 mg/dl NEAR OR ABOVE OPTIMAL 130 - 159 mg/dl BORDERLINE HIGH 160 - 189 mg/dl HIGH >190 mg/dl VERY HIGH Performed By: #### C MP, LIPID #### [facility] [address] [address] [address] Ricky Valenzuela Triglyceride [Mass/Vol] 194 mg/dL Critically high <=150 [facility] Comment on above: Performed By: #### C MP, LIPID #### [facility] [address] [address] [address] Ricky Valenzuela VLDL CALC 38.8 mg/dL Normal [facility] Comment on above: Performed By: #### C MP, LIPID #### [facility] [address] [address] [address] Rikcy Valenzuela MICROALBUMIN, RAND URon 07-13 mALB 13.1 mg/L Normal <=30.0 [facility] Comment on above: Performed By: #### M ALBR ####[facility] [address] [place], [place] [address]Dr. Ricky Valenzuela PROF 14(COMP METB)on 022 Albumin [Mass/Vol] 3.3 g/dL Critically low 3.4-5.0 [facility] Comment on above: Performed By: #### C MP, LIPID #### [facility] [address] [address] [address] Ricky Valenzuela Albumin/Globulin [Mass ratio] 0.8 {ratio} Normal [facility] Comment on above: Performed By: #### C MP, LIPID #### [facility] [address] [address] [address] Ricky Valenzuela ALP [Catalytic activity/Vol] 93 U/L Normal 46-116 [facility] Comment on above: Performed By: #### C MP, LIPID #### [facility] [address] [address] [address] Ricky Valenzuela ALT [Catalytic activity/Vol] 37 U/L Normal 14-59 [facility] Comment on above: Performed By: #### C MP, LIPID #### [facility] [address] [address] [address] Ricky Valenzuela Anion gap [Moles/Vol] 10.9 mmol/L Normal [facility] Comment on above: Performed By: #### C MP, LIPID #### [facility] [address] [address] [address] Ricky Valenzuela AST [Catalytic activity/Vol] 10 U/L Critically low 15-37 [facility] Comment on above: Performed By: #### C MP, LIPID #### [facility] [address] [place] [address] Dr. Ricky Valenzuela Bilirubin [Mass/Vol] 0.2 mg/dL Normal 0.2-1.0 [facility] Comment on above: Performed By: #### C MP, LIPID #### [facility] [address] [address] [address] Ricky Valenzuela Calcium [Mass/Vol] 9.0 mg/dL Normal 8.5-10.1 [facility] Comment on above: Performed By: #### C MP, LIPID #### [facility] [address] [address] [address] Ricky Valenzuela Chloride [Moles/Vol] 100 mmol/L Normal 98-107 [facility] Comment on above: Performed By: #### C MP, LIPID #### [facility] [address] [address] [address] Ricky Valenzuela CO2 [Moles/Vol] 32.2 mmol/L Critically high 21.0-32.0 [facility] Comment on above: Performed By: #### C MP, LIPID #### [facility] [address] [place] [address] Dr. Ricky Valenzuela Creatinine [Mass/Vol] 0.95 mg/dL Normal 0.55-1.02 [facility] Comment on above: Performed By: #### C MP, LIPID #### [facility] [address] [place] [address] Dr. Ricky Valenzuela EGFR-AF FAROESE >60 Normal >=60 [facility] Comment on above: Performed By: #### C MP, LIPID #### [facility] [address] [address] [address] Ricky Valenzuela EGFR-NON AF FAROESE >60 Normal >=60 [facility] Comment on above: Performed By: #### C MP, LIPID #### [facility] [address] [address] [address] Ricky Valenzuela Globulin (S) [Mass/Vol] 4.2 g/dL Normal [facility] Comment on above: Performed By: #### C MP, LIPID #### [facility] [address] [address] [address] Ricky Valenzuela Glucose [Mass/Vol] 200 mg/dL Critically high 74-106 [facility] Comment on above: Performed By: #### C MP, LIPID #### [facility] [address] [address] [address] Ricky Valenzuela Potassium [Moles/Vol] 4.1 mmol/L Normal 3.5-5.1 [facility] Comment on above: Performed By: #### C MP, LIPID #### [facility] [address] [address] [address] Ricky Valenzuela Protein [Mass/Vol] 7.5 g/dL Normal 6.4-8.2 [facility] Comment on above: Performed By: #### C MP, LIPID #### [facility] [address] [address] [address] Ricky Valenzuela Sodium [Moles/Vol] 139 mmol/L Normal 136-145 [facility] Comment on above: Performed By: #### C MP, LIPID #### [facility] [address] [place] [address] Dr. Ricky Valenzuela Urea nitrogen [Mass/Vol] 13.0 mg/dL Normal 7.0-18.0 [facility] Comment on above: Performed By: #### C MP, LIPID #### [facility] [address] [address] [address] Ricky Valenzuela Urea nitrogen/Creatinine [Mass ratio] 13.7 mg/mg Normal [facility] Comment on above: Performed By: #### C MP, LIPID #### [facility] [address] [place] [address] Dr. Ricky Valenzuela POINT OF CARE GLUCOSEon 06-12 Glucose [Mass/Vol] 176 mg/dL Critically high 74-106 [facility] Comment on above: Performed By: #### P OCGLUC #### [facility] [address] [address] [address] Ricky Valenzuela Vital Signs Date Time Vital Sign Value Performing Clinician Facility 01-18-2023 09:10-0500 Body height 156.21 cm Elle Hendricks Other [facility] Other 01-18-2023 09:10-0500 Body mass index (BMI) [Ratio] 42.82 kg/m2 Elle Dejesusmond Other [facility] Other 01-18-2023 09:10-0500 Body temperature 98.2 [degF] Elle Ruthie Other [facility] Other 01-18-2023 09:10-0500 Body weight 104.51 kg Elle Ruthie Other [facility] Other 01-18-2023 09:10-0500 Diastolic blood pressure 92 mm[Hg] Elle Ruthie Other [facility] Other 01-18-2023 09:10-0500 Respiratory rate 18 /min Elle Dejesusmond Other [facility] Other 01-18-2023 09:10-0500 SaO2% (BldA) [Mass fraction] 97 % Elle Hendricks Other [facility] Other 01-18-2023 09:10-0500 Systolic blood pressure 145 mm[Hg] Elle Ruthie Other [facility] Other Encounters Encounter Date Encounter Type Care Provider Facility Start: 08-22-2023 End: 08-22-2023 ambulatory CRISTINA FAWWAD Not Available Start: 08-05-2023 End: 08-05-2023 ambulatory CRISTINA FAWWAD Not Available Start: 07-04-2023 End: 07-04-2023 ambulatory CRISTINA FAWWAD Not Available Start: 05-02-2023 End: 05-02-2023 ambulatory CRISTINA FAWWAD Not Available Start: 04-30-2023 End: 04-30-2023 ambulatory [facility] Work Phone: Start: 04-30-2023 End: 04-30-2023 Patient encounter procedure [facility] Work Phone: Start: 03-21-2023 Orders Only Shaikh Maricel HOLLIS Work Phone: [facility] Comment on above: Diabetic polyneuropa thy associated with type 2 diabetes mellitus (CMS/HCC) (Primary Dx) Start: 03-19-2023 End: 03-19-2023 ambulatory Ana Luisa Curtis Other [facility] Other Start: 03-19-2023 Office outpatient vi sit 15 minutes Ana Luisa Curtis [facility] Start: 02-25-2023 End: 02-25-2023 ambulatory ELIDA GARCIA Not Available Start: 01-29-2023 End: 01-29-2023 ambulatory SHAIKH MARICEL Not Available Start: 01-23-2023 End: 01-23-2023 ambulatory Ana Luisa Curtis Other [facility] Other Start: 01-23-2023 Office outpatient vi sit 15 minutes Ana Luisa Curtis [facility] Start: 01-18-2023 End: 01-18-2023 ambulatory Elle Hendricks Other [facility] Other Start: 01-18-2023 Office outpatient vi sit 15 minutes Elle Hendricks [facility] Start: 09-19-2022 End: 09-19-2022 ambulatory Ana Luisa Curtis Other [facility] Other Start: 09-19-2022 Telephone encounter Ana Luisa Curtis [facility] Start: 07-12-[address] JONATHAN EDWARDS Facili ty:[facility]1 Start: 06-07-2022 End: 06-08-[address] JONATHAN EDWARDS Facility:[facility] Start: 05-02-2022 End: 05-02-2022 ambulatory Ana Luisa Curtis Other [facility] Other Start: 05-02-2022 Office outpatient ne w 30 minutes Ana Luisa Curtis [facility] Start: 04-12-2022 End: 04-13-2022 ambulatory [...] Start: 08-30-2021 End: 08-31-2021 ambulatory [facility]KKIE BARCLAY [facility] Start: 08-30-2021 End: 08-30-2021 Subsequent hospital visit by physician Sr Edwards DO Work Phone: [facility] Comment on above: Routine cervical sme ar Start: 08-16-2021 Encounter for genera l adult medical examination without abnormal findings DR RICARDO HOLM . [facility] Start: 08-09-2021 End: 08-10-2021 Encounter for [...] for malign ant neoplasm of colon [facility] Start: 08-30-2024 Screening for malign ant neoplasm of cervix [facility] Start: 03-20-2024 Screening for malign ant neoplasm of breast Mammogram [facility] Start: 02-27-2024 End: 02-27-2024 Patient encounter procedure 02/27/2024 11:35 AM EST [facility] [address] [place] [id number] Elida Garcia MD [address] [place] [address] [facility] Start: 02-12-2024 Glaucoma screening Diabetes: R etinopathy Screening [facility] Start: 08-11-2023 Influenza vaccination Influenza Vacc ine (#1) [facility] Comment on above: Postponed from 10/12 (Patient Refused) Start: 05-02-2023 End: 05-02-2023 Patient encounter procedure 05/02/2023 2:00 PM EDT Office Visit [facility] [address] [place] [address] Shaikh Connelly MD [address] [place] [address] [facility] Start: 02-17-2023 Hemoglobin A1c measurement Diabetes: Hemoglobin A1C [facility] Start: 09-04-2022 End: 09-04-2022 Patient encounter procedure 09/04/2022 Office Visit Obstetrics and Gynecology Nikkie Barclay, CORPORATE [employer]NAGER - CN [address] [facility] [address] [place] [address] [facility] Start: 10-12-2021 Influenza vaccination Flu vaccine (# 1) [facility] Start: 10-21-2013 Screening for malign ant neoplasm of breast Breast cancer screen [facility] Start: 10-21-2013 Shingles vaccine (1 of 2) Shingles vaccine (1 of 2) [facility] Start: 10-21-2008 Screening for malign ant neoplasm of colon [facility] Start: 2003 Lipid panel Lipids [facility] Start: 10-21-1998 Diabetes screen Diabetes screen [facility] Start: 10-21-1993 Screening for malign ant neoplasm of cervix [facility] Start: 10-21-1982 DTaP/Tdap/Td vaccine (1 - Tdap) DTaP/Tdap/Td vaccine (1 - Tdap) [facility] Start: 10-21-1982 Urine screening for protein Diabetes: Urine Protein Screening [facility] Start: 10-21-1981 Hepatitis C screening Hepatitis C sc reen [facility] Start: 10-21-1978 HIV screening HIV screen [facility] Start: 1975 Depression Screen Depression Screen [facility] Start: 04-20-1964 COVID-19 Vaccine (#1) COVID-19 Vacci ne (#1) [facility] Start: 1963 Screening for malign ant neoplasm of colon [facility] End: 08-30-2021 Cytopathology procedure, preparation of smear, genital source [facility] Routine Routine cervical smear 1 Occurrences starting 08/30/2021 until 08/30/2021 [facility] [employer] Work Phone: Comment on above: 1 Occurrences starti ng 08/30/2021 until 08/30/2021 Immunizations Immunization Date Immunization Notes Care Provider Tima garcia 01-14-2017 influenza, injectabl e, quadrivalent, preservative [facility] Payers Date Payer Category Payer Unknown [employer] [id number] 2022-Present [phone] [address] [address] [place] [address] [id number] 2012 Medicare MEDICARE MEDICAR E PART B [id number] 2012-[place] [address] [place] [address] Medicare [id number] 1963 Unknown [id number] 2.16.840.1.832953.3.579.2.17 3 1963 Unknown [id number] 2.16.840.1.552842.3.579.2.59 3 1963 Unknown [id number] 2.16.840.1.705479.3.579.2.59 3 1963 Unknown [id number] 2.16.840.1.376103.3.579.2.59 3 1963 Unknown [id number] 2.16.840.1.660707.3.579.2.59 3 1963 Unknown [id number] 2.16.840.1.804602.3.579.2.59 3 1963 Unknown [id number] 2.16.840.1.024171.3.579.2.59 3 1963 Unknown [id number] 2.16.840.1.731572.3.579.2.59 3 1963 Unknown [id number] 2.16.840.1.989156.3.579.2.59 3 1963 Unknown [id number] 2.16.840.1.575620.3.579.2.59 3 1963 Unknown [id number] 2.16.840.1.782821.3.579.2.59 3 1963 Unknown [id number] 2.16.840.1.221595.3.579.2.59 3 1963 Unknown [id number] 2.16.840.1.151431.3.579.2.59 3 1963 Unknown [id number] 2.16.840.1.687094.3.579.2.59 3 1963 Unknown [id number] 2.16.840.1.243577.3.579.2.59 3 1963 Unknown [id number] 2.16.840.1.288248.3.579.2.59 3 1963 Unknown [id number] 2.16.840.1.378324.3.579.2.59 3 1963 Unknown [id number] 2.16.840.1.933555.3.579.2.12 59 1963 Unknown [id number] 2.16.840.1.107365.3.579.2.12 59 1963 Unknown [id number] 2.16.840.1.287661.3.579.2.12 59 1963 Unknown [id number] 2.16.840.1.421680.3.579.2.12 59 1963 Unknown [id number] 2.16.840.1.265128.3.579.2.12 59 1963 Unknown [id number] 2.16.840.1.058218.3.579.2.12 59 1959 Medicare [id number] 1.2.840.249461.1.13.239.2.7. 3.889983.315 1959 Unknown [id number] 1.2.840.681290.1.13.239.2.7. 3.052192.315 1959 Unknown [id number] 2.16.840.1.930825.19 Medicare Medicare [id number] Self-pay Self Pay [id number] Social History Date Type Detail Facility Start: 08-30-2021 [facility] Phone: History of tobacco use Cigarette Smoker [facility] [employer] Phone: Start: 08-30-2021 End: 01-29-2023 Tobacco use and exposure Smokeless tobacco non-user [employer] Phone: Start: 08-30-2021 Alcohol intake Current drinke r of alcohol (finding) [employer] Phone: Start: 08-30-2021 History SDOH Alcohol Comment occasional [employer] Phone: Start: 1965 Sex Assigned At Not on file [facility] [employer] Phone: Start: 08-20-2021 End: 08-30-2021 Exposure to SARS-CoV-2 (event) Not sure [employer] Start: 02-25-2023 Sex Assigned At N Status Overload Other Start: 01-23-2023 End: 01-29-2023 Tobacco smoking status [facility] Ex-smoker [facility] History of tobacco use Current smoker [facility] Start: 01-29-2023 End: 02-25-2023 Cigarettes smoked current (pack per day) - Reported 0.5 [facility] Start: 02-25-2023 Alcohol intake Lifetime non-d gus (finding) [facility] Start: 1965 Sex Assigned At Female F [facility] Medical Equipment Procedure Code Equipment Code Equipment Origin al Text Equipment Identifier Dates USE TO TEST BLOO D SUGAR TWICE DAILY [id number] Start: 06-08-2021 Clinical Notes 06-20-2021 to 03-19-2023 [...] Mar, Left hand pain (ICD-10 - M79.642) [facility] Other 12-13-2023 Evaluation note* Encounter Date Diagnosis [...] noted. Patient will f/u in 4 weeks. [facility] Other 12-08-2023 Evaluation note* Encounter Date Diagnosis [...] left hand x-ray that was performed at [facility] which revealed degenerative changes in the hand as well as a remote avulsion fracture of the thumb. Patient states her family doctor is treating her for gout in her hand. Jan, History of gout (ICD-10 - Z87.39) Jan, Other Gout material w as printed [facility] Other 08-09-2023 Evaluation note* Encounter Date Diagnosis Assessment Notes Treatment Notes Treatment Clinical Notes Sep, Right wrist pain (ICD-10 - M25.531) [facility] Other 04-27-2023 NoteCONSULTATION CONSULTATION DATE: 06/07/2022 TO: [...] our patients to inform us about any ceuo-fqg-arqnnwu medications or herbal remedies/nutritional supplements/alternative remedies. 2. [...] treatment options with their primary care provider.[id number] Evaluation note * Encounter Date Diagnosis Assessment [...] understanding and is agreeable to treatment plan. [facility] Other 01-26-2023 NoteCONSULTATION PROCEDURE DATE: 03/08/2022 PREOPERATIVE [...] will be followed up in the clinic.[facility] [id number] NotePROCEDURE: XR KNEE LT 4V or > [...] Electronically authenticated by: PATTIE SALTER Date: 2022-02-16 11:29[facility]12-30-2022 NoteCONSULTATION CONSULTATION DATE: 02/09/2022 HISTORY OF [...] office today. Patient agrees with this plan.[facility] [id number] NotePROCEDURE: XR WRIST RT MIN 3 V COMPARISON: None. HISTORY: Injury of right wrist FINDINGS: BONES:No acute fracture or dislocation. Corticated bone fragment identified along the first carpometacarpal joint [degenerative in nature SOFT TISSUES:Moderate diffuse soft tissue swelling EFFUSION:None visible. OTHER: Negative. IMPRESSION: Soft tissue swelling, no acute fracture Electronically authenticated by: RYAN GOLDMAN Date: 2021-11-16 18:59[facility]09-21-2022 NoteCONSULTATION CONSULTATION DATE: 11/01/2021 HISTORY OF [...] otherwise indicated. Patient agrees with this plan.[facility] [id number] NoteCONSULTATION PROCEDURE DATE: 11/01/2021 PRE AND POSTOPERATIVE [...] will be followed up in the clinic.[facility] [id number] NoteCONSULTATION PROCEDURE DATE: 08/09/2021 PREOPERATIVE DIAGNOSIS: Bilateral [...] will be followed up in the clinic. [facility] Signed and Approved by: CRYS PIERCE . 08/10/2021 13:37:00[facility] [id number] NoteCONSULTATION CONSULTATION DATE: 07/19/2021 HISTORY OF PRESENT [...] injections. Patient acknowledges and all questions answered. [facility] Signed and Approved by: CRYS PIERCE . 07/20/2021 10:33:00[facility]05-25-2022 NotePROCEDURE: XR FOOT RT MIN 3 [...] Electronically authenticated by: PATTIE SALTER Date: 2021-07-05 11:11[facility]05-10-2022 NoteCONSULTATION CONSULTATION DATE: 06/20/2021 CHIEF COMPLAINT: [...] like to proceed. CC: Jonathan Edwards M.D. [facility] Signed and Approved by: DR RICARDO HOLM . 06/27/2021 10:40:00[facility] note* Diagnosis Routine cervical smear Screening for malignant neoplasm of the cervix documented in this encounter [facility] Work Phone: evaluation note* Diagnosis Diabetic polyneuropathy associated with type 2 diabetes mellitus ([facility])- Primary documented in this encounter [facility] HealthcareEvaluation noteNo assessment information available[facility] Work Phone: History general Narrative - Reported* Type Description Date Medical History GERD (gastroesophageal reflux di sease) Medical History Migraine headache Medical History Arthritis Medical History Edema of both legs Medical History Diabetes mellitus, type 2 Medical History Chronic back pain Surgical History ablasion Surgical History back surgery Surgical History hysterectomy Surgical History tubal ligation Hospitalization History see above [facility] Other Summary Purpose Family History No Family [...] Care Teams (unrecognized sec tion and content) 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 d[facility] Specialists EPIC REASON FOR VISIT [...] BE BASED ON THE PRIMARY CLINICAL RECORDS. [employer] [facility]. provides no warranty or guarantee of the accuracy or completeness of information in this document.
--- NOTE | 2023-09-26 10:05 | PM.CN ---
Consult Note: HPI Data of Consult Patient: known to practice within the last 3 years Consult date: 06/09/23 Requesting Physician: Chela Tijerina NP Primary Care Provider: Shaikh Maricel MD Consult Narrative Reason for consult: low back pain Narrative: Brian Weir a pleasant 57 year old female presents for evaluation and management of chronic low back pain. Patient reporting pain 8/10 in low back and bilateral hips, reports constant throbbing sharp bone rubbing pain. Pain increased with twisting standing walking stairs standing activity sleeping and weather changes, pain improved with massage lying and sitting. Patient has an extensive hx of neck and low back pain. Patient utilizes lyrica 75mg TID, diclofenac 75mg BID, ibuprofen PRN, baclofen 10mg 1-2 tabs HS, and percocet 5-325mg PRN. Recent lumbar MRI as noted below. Patient underwent L2/3 LORY with 80% improvement ongoing. Continues to have moderate to severe axial low back pain without radiculopathy. cc:: CC: Chela Tijerina NP Review of Systems ROS Status of ROS 10 or more systems reviewed and unremarkable except as noted in history and below Musculoskeletal Reports: back pain PFSH PFSH Medical History Morbid obesity due to excess calories ?E66.01 - Morbid (severe) obesity due to excess calories (ICD-10) Type 2 diabetes mellitus with hyperglycemia ?E11.65 - Type 2 diabetes mellitus with hyperglycemia (ICD-10) HTN (hypertension) ?I10 - Essential (primary) hypertension (ICD-10) Lumbar spondylosis ?M47.816 - Spondylosis without myelopathy or radiculopathy, lumbar region (ICD-10) Fracture of foot ?S92.909A - Unspecified fracture of unspecified foot, initial encounter for closed fracture (ICD-10) Closed fibular fracture ?S82.409A - Unspecified fracture of shaft of unspecified fibula, initial encounter for closed fracture (ICD-10) Fracture of medial cuneiform of left foot ?S92.242A - Displaced fracture of medial cuneiform of left foot, initial encounter for closed fracture (ICD-10) Fracture of metatarsal of left foot, closed ?S92.302A - Fracture of unspecified metatarsal bone(s), left foot, initial encounter for closed fracture (ICD-10) Dislocation of foot, left, closed ?S93.305A - Unspecified dislocation of left foot, initial encounter (ICD-10) Mild protein-calorie malnutrition ?E44.1 - Mild protein-calorie malnutrition (ICD-10) Acute exacerbation of chronic low back pain ?M54.50 - Low back pain, unspecified (ICD-10) ?G89.29 - Other chronic pain (ICD-10) Migraine headache ?G43.909 - Migraine, unspecified, not intractable, without status migrainosus (ICD-10) Hyperlipidemia ?E78.5 - Hyperlipidemia, unspecified (ICD-10) Iron deficiency anemia ?D50.9 - Iron deficiency anemia, unspecified (ICD-10) Lumbar radiculopathy ?M54.16 - Radiculopathy, lumbar region (ICD-10) Chronic prescription opiate use ?Z79.891 - senior living (current) use of opiate analgesic (ICD-10) Sacroiliac joint pain ?M53.3 - Sacrococcygeal disorders, not elsewhere classified (ICD-10) Muscle spasm ?M62.838 - Other muscle spasm (ICD-10) Cervical spondylosis ?M47.812 - Spondylosis without myelopathy or radiculopathy, cervical region (ICD-10) Lumbar stenosis with neurogenic claudication ?M48.062 - Spinal stenosis, lumbar region with neurogenic claudication (ICD-10) Compression fracture of L1 vertebra ?S32.010A - Wedge compression fracture of first lumbar vertebra, initial encounter for closed fracture (ICD-10) Tubal ?O00.109 - Unspecified tubal without intrauterine (ICD-10) TMJ (dislocation of temporomandibular joint) ?S03.00XA - Dislocation of jaw, unspecified side, initial encounter (ICD-10) Upper back pain ?M54.9 - Dorsalgia, unspecified (ICD-10) Back pain ?M54.9 - Dorsalgia, unspecified (ICD-10) Neck pain ?M54.2 - Cervicalgia (ICD-10) Osteoarthritis ?M19.90 - Unspecified osteoarthritis, unspecified site (ICD-10) Obesity ?E66.9 - Obesity, unspecified (ICD-10) Heartburn ?R12 - Heartburn (ICD-10) Acid reflux ?K21.9 - Gastro-esophageal reflux disease without esophagitis (ICD-10) Diabetes ?E11.9 - Type 2 diabetes mellitus without complications (ICD-10) Smoker ?F17.200 - Nicotine dependence, unspecified, uncomplicated (ICD-10) Surgical History S/P lumbar spine operation ?Z98.890 - Other specified postprocedural states (ICD-10) H/O: hysterectomy ?Z90.710 - Acquired absence of both cervix and uterus (ICD-10) Family History Mother Family history of CHF (congestive heart failure) Family history of cancer Family history of diabetes mellitus Family history of hypertension Family history of myocardial infarction Social History Within the past year, how often did you have a drink containing alcohol: monthly or less Smoking status: Light tobacco smoker Non-prescribed substance use: denies use Previous occupational history: retired/disability Highest level of school completed/degree received: high school graduate Are you now , , , , never or living with a partner: In a typical week, how many times do you talk on the telephone with family, friends, or neighbors: 3 or more times per week How often do you get together with friends or relatives: 3 or more times per week How often do you attend pentecostalism or mandaen services: never Little interest or pleasure in doing things: not at all Feeling down, depressed, or hopeless: not at all Feel stressed/tense/nervous/anxious/difficulty sleeping: not at all Do you think of yourself as: straight/heterosexual Gender Identity: female Meds Home Medications and Allergies Home Medications ?Medication ?Instructions ?Recorded ?Confirmed ?Type alendronate 70 mg tablet 70 mg PO QWEEK 07/20/22 09/10/23 History allopurinol 300 mg tablet 300 mg PO DAILY 07/20/22 09/10/23 History aspirin 81 mg tablet,delayed 81 mg PO DAILY 07/20/22 09/10/23 History release (Adult Aspirin Regimen) cholecalciferol (vitamin D3) 25 1,000 unit PO DAILY 07/20/22 09/10/23 History mcg (1,000 unit) capsule diclofenac sodium 75 mg 75 mg PO BID 07/20/22 09/10/23 History tablet,delayed release divalproex 500 mg tablet,delayed 500 mg PO BID 07/20/22 09/10/23 History release (Depakote) glucosamine [id number] 1 tab PO DAILY 07/20/22 09/10/23 History krzysztof 1,500 mg-400 unit-100 mg tablet (Osteo Bi-Flex (5-Loxin)) lactobacillus combo no.13 1 1 cap PO DAILY 07/20/22 09/10/23 History billion cell capsule,delayed release (Probiotic Pearls Complete) multivitamin 1 tab PO DAILY 07/20/22 09/10/23 History oxycodone-acetaminophen 5 mg-325 1 tab PO DAILY PRN pain 07/20/22 09/10/23 History mg tablet prasterone (dhea) 50 mg capsule 50 mg PO DAILY 07/20/22 09/10/23 History (DHEA) famotidine 20 mg tablet 20 mg PO BID 06/08/23 09/10/23 History metformin 1,000 mg tablet 500 mg PO BID 06/08/23 09/10/23 History rizatriptan 10 mg tablet 10 mg PO Q2H PRN migraine headache 06/08/23 09/10/23 History rosuvastatin 20 mg tablet 20 mg PO DAILY 06/08/23 09/10/23 History glimepiride 1 mg tablet 0.5 mg PO QAM 08/17/23 09/10/23 History pregabalin 75 mg capsule 75 mg PO BID 08/17/23 09/10/23 History semaglutide 1 mg/dose (4 mg/3 mL) 1 mg subcut QWEEK 08/17/23 09/10/23 History subcutaneous pen injector (Ozempic) baclofen 20 mg tablet 20 mg PO TID PRN muscle spasm #60 08/18/23 09/10/23 Rx tabs diazepam 10 mg tablet (Valium) 10 mg PO ONCE PRN sedation 09/10/23 09/10/23 History Allergies Allergy/AdvReac Type Severity Reaction Status Date / Time No Known Drug Allergies Allergy Verified 09/10/23 08:31 Exam Constitutional Documenting provider has reviewed patient's vital signs: yes Common normals: no apparent distress, oriented x3, healthy appearing, alert and well nourished General appearance: cooperative Nutritional appearance: obese HENMT Common normals: normocephalic, hearing grossly normal bilaterally and moist oral mucous membranes Head and scalp: normocephalic Eye Common normals: PERRL Pupil: PERRL Neck & C-Spine Common normals: full ROM General: normal visual inspection Cervical spine: pain with cervical ROM Other: trigger point to right occipital area tenderness and pain at bilateral C3/4 4/5 facets predominately axial neck pain without radiculopathy Chest Common normals: inspection of chest normal Respiratory Common normals: normal respiratory effort, no retractions and no use of accessory muscles Back & Pelvis Lumbar spine/lower back: ROM limited, pain with ROM and straight leg raise negative bilaterally Sacroiliac joints: SI joint(s) abnormal (bilateral +paris, FADIR, gaenslens, thigh thrust ) Other: no radiculopathy, sensation intact BLE strength 4/5 in BLE positive facet loading bilaterally Pain from L3-S1 facets Extremity Common normals: normal to inspection and full ROM Neuro Common normals: oriented x3, CN's II-XII intact bilaterally, moves all extremities, no focal motor deficits, no sensory deficits noted and deep tendon reflexes 2+ bilaterally Sensorium/orientation: alert Gait (neuro): antalgic Motor exam: strength 5/5 throughout and no movement abnormalities noted Psych Common normals: mental status grossly normal, thought process normal, cooperative, affect normal, speech normal and activity/motor behavior normal Speech: normal speech Thought process: normal thought process Results Additional Findings Additional findings: If on a controlled substance or opioids, I have checked an [place] report on this patient and there are no aberrancies noted in the prescribing history.??If on a controlled substance or opioid a drug screen was completed and reviewed within the last year, and if there has not been a drug screen completed we ordered one today to monitor higher risk, state monitored pain medication use. As part of providing excellent, safe, comprehensive care, the following was completed at our patient's visit: 1. A medication reconciliation and review to ensure accurate knowledge of current/active medications, including asking our patients to inform us about any qrit-eka-ohaetve medications or herbal remedies/nutritional supplements/alternative remedies. 2. A review to specifically ensure our patients have had annual screening for screening for depression, screening for tobacco use, and screening for unhealthy alcohol use. For concerning screenings had a discussion with the patient, provided patient education, and recommended follow-up with primary care provider when appropriate. If patient noted with a risk of falling, they received education on strength, gait, and balance training to prevent future risk of falling. Assessment and Plan Assessment and Plan (1) Lumbar stenosis with neurogenic claudication: Assessment and Plan: 80% improvement ongoing (2) Lumbar spondylosis: (3) Lumbar radiculopathy: Assessment and Plan: resolved (4) Chronic prescription opiate use: (5) Muscle spasm: Plan bilateral L4-5 L5-S1 facet medial branch blocks x2 working towards RFA, has failed to respond to greater than 6 weeks HEP/PT and conservative measures such as heat/ice PRN tylenol. lumbar imaging consistent with degenerative changes and facet arthropathy continue current medications tolerating well without side effect f/u after each injection
== END 2023-09-26 09:43 | disposition home or self-care (01) ==
LOC: PM 09:48
PROVIDERS: PCP Internal Medicine; Visit Provider Nurse Practitioner
DX: M48.062 Spinal stenosis, lumbar region with neurogenic claudication (principal); M47.816 Spondylosis without myelopathy or radiculopathy, lumbar region; M54.16 Radiculopathy, lumbar region; Z79.891 Long term (current) use of opiate analgesic; M62.838 Other muscle spasm
CPT/HCPCS: G0463

== ENCOUNTER 2023-10-16 11:14 | Outpatient (OUT) | payer OTHER, MEDICARE, SELFPAY ==
--- NOTE | 2023-10-16 | XR_ITS ---
The [address] [address] Patient Name: KARINA DE OLIVEIRA MRN: [id number] date: 1965 Sex: F Assigned Patient Location: Current Patient Location: Accession/Order Number: [id number] Exam Date: 10/16/2023 11:20 Report Date: 10/17/2023 06:58 At the request of: SUSSY JONES Procedure: XR foot LT min 3V PROCEDURE: XR foot LT min 3V HISTORY: LEFT FOOT PAIN COMPARISON: XR foot left 09/03/2023 FINDINGS: BONES:Prior fracture of second metatarsal diaphysis with prominent callus formation seen on today's study. Slight lateral apex angulation, unchanged. Prior mechanical fusion of the first tarsal-metatarsal joint via dorsal plate and screws. Chronic degenerative changes at the tarsal-metatarsal joints. SOFT TISSUES:Prominent dorsal soft tissue swelling. EFFUSION:None visible. OTHER: Negative. XR/XR foot LT min 3V IMPRESSION: 1. Stable alignment with changes of ongoing bone healing involving the second metatarsal fracture. 2. Stable surgical changes without evidence of hardware failure. Electronically authenticated by: PATTIE SALTER Date: 10/17/2023 06:58
--- OUTSIDE RECORDS SUMMARY | 2023-10-16 11:24 | XMS_ITS | CCD ---
Author Organization [facility] Care Team Providers Care Eligibility Manager Name Role Phone House DO, Sr Jonathan Klein Primary Care Provider [phone] NIKKIE BARCLAY Referring Unavailabl e HOUSE, SR [...] Nieves Consulting Unavailable SUSSY JONES Consulting Unavailable OXFORD, DR BASURTO Attending Unavailable OXFORD, DR BASURTO Primary Care Unavailable OXFORD, DR BASURTO Admitting Unavailable OXFORD, DR BASURTO Consulting Unavailable OXFORD, DR BASURTO Primary Care Unavailable GAETANO, DR PATTIE Nieves Consulting Unavailable LAKSHMIPATHY ., NARENDRONALDATH Admitting Nellie vailable LAKSHMIPATHY ., DEMETRIUSATH Attending Nellie vailable LAKSHMIPATHY ., BILLY Consulting Nellie vailable HOUSE, DR BASURTO Admitting Unavailable OXFORD, DR BASURTO Attending Unavailable OXFORD, DR BASURTO Primary Care Unavailable GRAYS KNOB, DR RYAN Guzman Consulting Unavailable OXFORD, DR JONATHAN Trimble Unavailable HOLM ., DR [...] Consulting Unavailable PIERCE ., CRYS Trimble Unavailable OXFORD, DR BASURTO Primary Care Unavailable HOLM ., DR RICARDO Belcher Admitting Unavailable HOLM ., DR RICARDO Belcher Attending Unavailable LAKSHMIPATHY ., BILLY Consulting Nellie vailable OXFORD, DR BASURTO Primary Care Unavailable HOLM ., DR RICARDO Belcher Admitting Unavailable HOLM ., DR RICARDO Belcher Attending Unavailable PIERCE ., CRYS Consulting Unavailable Elle Hendricks Unavailable Shaikh Connelly MD Primary Care Provider [phone] ELIDA GARCIA Attending Unavailable SHAIKH CONNELLY Attending Unavailable SHAIKH CONNELLY Attending Unavailable SHAIKH CONNELLY Attending Unavailable SHAIKH CONNELLY Attending Unavailable SONAM LANE Attending Unavailabl SHAIKH Avila Attending Unavailable Medications Current Medications Medication Drug [...] day Active take 1 capsule by mo [facility] twice daily pregabalin (LYRICA) 50 MG capsule [...] 12, 2017 1:00am January 15, 2017 2:23pm Szxdryqkfxki-Fu-Jmr n-Minerals (Multiple Vitamin, Womens) Tablet (1 source) Start: 01-12-2017 End: 01-15-2017 Yomzxuvudnvi-Fm-Zp on-Minerals (Multiple Vitamin, Womens) Tablet Discontinued PO [...] PATTIE SALTER Date: 2022-06-07 11:15 Normal [facility] CBC AUTO DIFFon 04-12-2022 BASO # 0.1 103/ul Normal 0.0-0.[address] [facility] Comment on above: Performed By: #### C BC ####[facility] [address] [place] [address]Dr. Ricky Valenzuela Basophils/100 WBC (Bld) 0.5 % Normal 0.2-2.0 [facility] Comment on above: Performed By: #### C BC ####[facility] [address] [place], [place] [address]Dr. Ricky Valenzuela EO # 0.3 103/ul Normal 0.0-0.[address] [facility] Comment on above: Performed By: #### C BC ####[facility] [address] [place], [place] [address]Dr. Ricky Valenzuela Eosinophils/100 WBC (Bld) 3.0 % Normal 0.9-7.0 [facility] Comment on above: Performed By: #### C BC ####[facility] [address] [place], [place] [address]Dr. Ricky Valenzuela Erythrocyte distribution width (RBC) [Ratio] 14.8 % Normal 11.0-15.[address] [facility] Comment on above: Performed By: #### C BC ####[facility] [address] [place], [place] [address]Dr. Ricky Valenzuela Hematocrit (Bld) [Volume fraction] 40.6 % Normal 36.0-48.[address] [facility] Comment on above: Performed By: #### C BC ####[facility] [address] [place], [place] [address]Dr. Ricky Valenzuela Hemoglobin (Bld) [Mass/Vol] 13.5 g/dL Normal 12.0-16.0 [facility] Comment on above: Performed By: #### C BC ####[facility] [address] [place] [id number] Valenzuela IG # 0.16 10e3/ul Critically high 0.00-0.03 [facility] Comment on above: Performed By: #### C BC ####[facility] [address] [place] [id number] Valenzuela IG % 1.4 % Critically high 0.0-0.5 [facility] Comment on above: Performed By: #### C BC ####[facility] [address] [place] [address]DrPasquale Valenzuela LYMPH # 3.4 103/ul Normal 1.2-3.8 [facility] Comment on above: Performed By: #### C BC ####[facility] [address] [place] [address]DrPasquale Valenzuela Lymphocytes/100 WBC (Bld) 30.4 % Normal 20.5-60.0 [facility] Comment on above: Performed By: #### C BC ####[facility] [address] [place] [address]DrPasquale Valenzuela MANUAL DIFF REQ NO Normal [facility] Comment on above: Performed By: #### C BC ####[facility] [address] [place] [address]DrPasquale Valenzuela MCH (RBC) [Entitic mass] 31.8 pg Normal 26.7-34.0 [facility] Comment on above: Performed By: #### C BC ####[facility] [address] [place] [id number] Valenzuela MCHC (RBC) [Mass/Vol] 33.3 g/dL Normal 29.9-35.[address] [facility] Comment on above: Performed By: #### C BC ####[facility] [address] [place] [id number] Valenzuela MCV (RBC) [Entitic vol] 95.5 fL Normal 81.0-99.[address] [facility] Comment on above: Performed By: #### C BC ####[facility] [address] [place] [id number]. Ricky Valenzuela MONO # 0.9 103/ul Critically high 0.3-0.8 [facility] Comment on above: Performed By: #### C BC ####[facility] [address] [place] [id number]. Ricky Nicolas Monocytes/100 WBC (Bld) 7.7 % Normal 1.7-12.[address] [facility] Comment on above: Performed By: #### C BC ####[facility] [address] [place] [address]Dr. Ricky Valenzuela NEUT # 6.3 103/ul Normal 1.4-6.[address] [facility] Comment on above: Performed By: #### C BC ####[facility] [address] [place] [address]Dr. Lesleysharron Valenzuela Neutrophils/100 WBC (Bld) 57.0 % Normal 43.0-75.[address] [facility] Comment on above: Performed By: #### C BC ####[facility] [address] [place], [place] [address]Dr. Ricky Valenzuela Platelet mean volume (Bld) [Entitic vol] 9.8 fL Normal 9.5-13.[address] [facility] Comment on above: Performed By: #### C BC ####[facility] [address] [place], [place] [id number]. Ricky Valenzuela PLT 246 103/ul Normal 150-[address] [facility] Comment on above: Performed By: #### C BC ####[facility] [address] [place], [place] [id number]. Ricky Valenzuela RBC 4.25 106/ul Normal 4.20-5.[address] [facility] Comment on above: Performed By: #### C BC ####[facility] [address] [place] [id number]. Ricky Valenzuela WBC 11.1 103/ul Critically high 4.0-11.0 [facility] Comment on above: Performed By: #### C BC ####[facility] [address] [place] [address]Dr. Ricky Valenzuela GLYCOHEMOGLOBIN A1Con 2022 ADA RECOMMENDATION SEE BELOW Normal [facility] Comment on above: Result Comment: ADA RECOMMENDED LIMIT 4.0 - 6.0 ADA THERAPEUTIC TARGET < 7.0 ACTION SUGGESTED > 7.0 Performed By: #### A 1C ####[facility] [address] [place] [address]DrPasquale Valenzuela Glucose [Mass/Vol] 160 mg/dL Normal [facility] Comment on above: Performed By: #### A 1C ####[facility] [address] [place] [address]DrPasquale Valenzuela HbA1c (Bld) [Mass fraction] 7.2 % Critically high 4.5-6.2 [facility] Comment on above: Performed By: #### A 1C ####[facility] [address] [place] [address]DrPasquale Valenzuela MICROALBUMIN, RAND URon - mALB <1.3 Normal <=30.0 [facility] Comment on above: Performed By: #### M ALBR #### [facility] [address] [place] [address] [address] Ricky Valenzuela PROF 14(COMP METB)on 023 Albumin [Mass/Vol] 3.3 g/dL Critically low 3.4-5.0 [facility] Comment on above: Performed By: #### C MP #### [facility] [address] [place] [address] [address] Ricky Valenzuela Albumin/Globulin [Mass ratio] 0.9 {ratio} Normal [facility] Comment on above: Performed By: #### C MP #### [facility] [address] [place] [address] [address] Ricky Valenzuela ALP [Catalytic activity/Vol] 90 U/L Normal 46-116 [facility] Comment on above: Performed By: #### C MP #### [facility] [address] [place] [address] [address] Ricky Valenzuela ALT [Catalytic activity/Vol] 42 U/L Normal 14-59 [facility] Comment on above: Performed By: #### C MP #### [facility] [address] [place] [address] Dr. Ricky Valenzuela Anion gap [Moles/Vol] 10.1 mmol/L Normal [facility] Comment on above: Performed By: #### C MP #### [facility] [address] [place] [address] [address] Ricky Valenzuela AST [Catalytic activity/Vol] 21 U/L Normal 15-37 [facility] Comment on above: Performed By: #### C MP #### [facility] [address] [place] [address] [address] Ricky Valenzuela Bilirubin [Mass/Vol] 0.3 mg/dL Normal 0.2-1.0 [facility] Comment on above: Performed By: #### C MP #### [facility] [address] [place] [address] Dr. Ricky Valenzuela Calcium [Mass/Vol] 9.8 mg/dL Normal 8.5-10.1 [facility] Comment on above: Performed By: #### C MP #### [facility] [address] [place] [address] Dr. Ricky Valenzuela Chloride [Moles/Vol] 99 mmol/L Normal 98-107 [facility] Comment on above: Performed By: #### C MP #### [facility] [address] [place] [address] [address] Ricky Valenzuela CO2 [Moles/Vol] 33.7 mmol/L Critically high 21.0-32.0 [facility] Comment on above: Performed By: #### C MP #### [facility] [address] [place] [address] Dr. Ricky Valenzuela Creatinine [Mass/Vol] 0.94 mg/dL Normal 0.55-1.02 [facility] Comment on above: Performed By: #### C MP #### [facility] [address] [place] [address] Dr. Ricky Valenzuela EGFR-AF BENINESE >60 Normal >=60 [facility] Comment on above: Performed By: #### C MP #### [facility] [address] [place] [address] [address] Ricky Valenzuela EGFR-NON AF BENINESE >60 Normal >=60 [facility] Comment on above: Performed By: #### C MP #### [facility] [address] [address] [address] Ricky Valenzuela Globulin (S) [Mass/Vol] 3.8 g/dL Normal [facility] Comment on above: Performed By: #### C MP #### [facility] [address] [place] [address] [address] Ricky Valenzuela Glucose [Mass/Vol] 168 mg/dL Critically high 74-106 [facility] Comment on above: Performed By: #### C MP #### [facility] [address] [place] [address] [address] Ricky Valenzuela Potassium [Moles/Vol] 4.8 mmol/L Normal 3.5-5.1 [facility] Comment on above: Performed By: #### C MP #### [facility] [address] [place] [address] [address] Ricky Valenzuela Protein [Mass/Vol] 7.1 g/dL Normal 6.4-8.2 [facility] Comment on above: Performed By: #### C MP #### [facility] [address] [place] [address] [address] Ricky Valenzuela Sodium [Moles/Vol] 138 mmol/L Normal 136-145 [facility] Comment on above: Performed By: #### C MP #### [facility] [address] [place] [address] [address] Ricky Valenzuela Urea nitrogen [Mass/Vol] 22.0 mg/dL Critically high 7.0-18.0 [facility] Comment on above: Performed By: #### C MP #### [facility] [address] [place] [address] [address] Ricky Valenzuela Urea nitrogen/Creatinine [Mass ratio] 23.4 mg/mg Normal [facility] Comment on above: Performed By: #### C MP #### [facility] [address] [address] [address] Ricky Valenzuela Cytologyon 08-30-2021 Cytology (NOTE) INTERPRETATION Vaginal material, (ThinPrep vial, Imaging-assisted review): Specimen Adequacy: Satisfactory for evaluation. Descriptive Diagnosis: Negative for intraepithelial lesion or malignancy. Business Continuity Director: CLARK Delacruz(ASCP) Electronically Signed Out ss/09/07/2021 Source: A: Vaginal material, (ThinPrep vial, Imaging-assisted review) Clinical History Hysterectomy Surgery: Salpingostomy; Ovary removal Z12.4 Encounter for screening for malignant neoplasm of cervix GYNECOLOGIC CYTOLOGY REPORT Patient Name: KARINA DE OLIVEIRA [facility] Rec: [id number] Path Number: [id number] [facility] PATHOLOGISTS [facility] ANATOMIC PATHOLOGY [address] [place] [phone] [facility] Comment on above: Performed By: #### P PPVP #### [address] [id number] Numerical Control Tool Programmer: Luca Cummins MD CBC AUTO DIFFon 08-09-2021 BASO # 0.1 103/ul Normal 0.0-0.1 [facility] Comment on above: Performed By: #### C BC #### [facility] [address] [address] [address] Ricky Valenzuela Basophils/100 WBC (Bld) 0.8 % Normal 0.2-2.0 [facility] Comment on above: Performed By: #### C BC #### [facility] [id number] Ricky Valenzuela EO # 0.2 103/ul Normal 0.0-0.7 [facility] Comment on above: Performed By: #### C BC #### [facility] [address] [address] [address] Ricky Valenzuela Eosinophils/100 WBC (Bld) 2.1 % Normal 0.9-7.0 [facility] Comment on above: Performed By: #### C BC #### [facility] [address] [address] [address] Ricky Valenzuela Erythrocyte distribution width (RBC) [Ratio] 15.2 % Critically high 11.0-15.0 [facility] Comment on above: Performed By: #### C BC #### [facility] [address] [place] [address] Dr. Ricky Valenzuela Hematocrit (Bld) [Volume fraction] 41.5 % Normal 36.0-48.0 [facility] Comment on above: Performed By: #### C BC #### [facility] [address] [place] [address] Dr. Ricky Valenzuela Hemoglobin (Bld) [Mass/Vol] 13.5 g/dL Normal 12.0-16.0 [facility] Comment on above: Performed By: #### C BC #### [facility] [address] [place] [address] Dr. Ricky Valenzuela IG # 0.42 10e3/ul Critically high 0.00-0.03 [facility] Comment on above: Performed By: #### C BC #### [facility] [address] [place] [address] Dr. Ricky Valenzuela IG % 3.8 % Critically high 0.0-0.5 [facility] Comment on above: Performed By: #### C BC #### [facility] [address] [place] [address] Dr. Ricky Valenzuela LYMPH # 3.3 103/ul Normal 1.2-3.8 [facility] Comment on above: Performed By: #### C BC #### [facility] [address] [place] [address] Dr. Ricky Valenzuela Lymphocytes/100 WBC (Bld) 29.1 % Normal 20.5-60.0 [facility] Comment on above: Performed By: #### C BC #### [facility] [address] [place] [address] Dr. Ricky Valenzuela MANUAL DIFF REQ NO Normal [facility] Comment on above: Performed By: #### C BC #### [facility] [address] [place] [address] Dr. Ricky Valenzuela MCH (RBC) [Entitic mass] 32.4 pg Normal 26.7-34.[address] [facility] Comment on above: Performed By: #### C BC #### [facility] [address] [place] [address] Dr. Ricky Valenzuela MCHC (RBC) [Mass/Vol] 32.5 g/dL Normal 29.9-35.[address] [facility] Comment on above: Performed By: #### C BC #### [facility] [address] [place] [address] Dr. Ricky Valenzuela MCV (RBC) [Entitic vol] 99.5 fL Critically high 81.0-99.0 [facility] Comment on above: Performed By: #### C BC #### [facility] [address] [place] [address] Dr. Ricky Valenzuela MONO # 0.8 103/ul Normal 0.3-0.[address] [facility] Comment on above: Performed By: #### C BC #### [facility] [address] [place] [address] Dr. Ricky Valenzuela Monocytes/100 WBC (Bld) 7.5 % Normal 1.7-12.0 [facility] Comment on above: Performed By: #### C BC #### [facility] [address] [place] [address] Dr. Ricky Valenzuela NEUT # 6.3 103/ul Normal 1.4-6.[address] [facility] Comment on above: Performed By: #### C BC #### [facility] [address] [place] [address] Dr. Ricky Valenzuela Neutrophils/100 WBC (Bld) 56.7 % Normal 43.0-75.[address] [facility] Comment on above: Performed By: #### C BC #### [facility] [address] [place] [address] Dr. Ricky Valenzuela Platelet mean volume (Bld) [Entitic vol] 9.8 fL Normal 9.5-13.[address] [facility] Comment on above: Performed By: #### C BC #### [facility] [address] [place], [place] [address] Dr. Ricky Valenzuela PLT 265 103/ul Normal 150-450 [facility] Comment on above: Performed By: #### C BC #### [facility] [address] [place], [place] [address] Dr. Ricky Valenzuela RBC 4.17 106/ul Critically low 4.20-5.40 [facility] Comment on above: Performed By: #### C BC #### [facility] [address] [place], [place] [address] Dr. Ricky Valenzuela WBC 11.2 103/ul Critically high 4.0-11.0 [facility] Comment on above: Performed By: #### C BC #### [facility] [id number] Ricky Valenzuela GLYCOHEMOGLOBIN A1Con 2021 ADA RECOMMENDATION SEE BELOW Normal [facility] Comment on above: Result Comment: ADA RECOMMENDED LIMIT 4.0 - 6.0 ADA THERAPEUTIC TARGET < 7.0 ACTION SUGGESTED > 7.0 Performed By: #### A 1C ####[facility] [address] [place] [id number]. Ricky Valenzuela Glucose [Mass/Vol] 183 mg/dL Normal [facility] Comment on above: Performed By: #### A 1C ####[facility] [address] [place] [id number]. Ricky Valenzuela HbA1c (Bld) [Mass fraction] 8.0 % Critically high 4.5-6.2 [facility] Comment on above: Performed By: #### A 1C ####[facility] [address] [place] [id number]. Ricky Valenzuela LIPID PROFILEon 08-09-2021 CHOL-HDL RATIO NORM SEE BELOW Normal [facility] Comment on above: Result Comment: 3.3 - 4.4 LOW RISK 4.4 - 7.1 AVERAGE RISK 7.1 - 11.0 MODERATE RISK >11.0 HIGH RISK Performed By: #### C MP, LIPID #### [facility] [address] [place] [address] [address] Ricky Valenzuela Cholesterol [Mass/Vol] 239 mg/dL Critically high <=200 [facility] Comment on above: Performed By: #### C MP, LIPID #### [facility] [address] [address] [address] Ricky Valenzuela Cholesterol in HDL [Mass/Vol] 36 mg/dL Critically low 40-60 [facility] Comment on above: Performed By: #### C MP, LIPID #### [facility] [address] [address] [address] Ricky Valenzuela Cholesterol in LDL [Mass/Vol] 164.2 mg/dL Normal [facility] Comment on above: Performed By: #### C MP, LIPID #### [facility] [address] [address] [address] Ricky Valenzuela Cholesterol.total/Cho lesterol in HDL [Mass ratio] 6.6 {ratio} Normal [facility] Comment on above: Performed By: #### C MP, LIPID #### [facility] [address] [place] [address] Dr. Ricky Valenzuela HDL NORMAL > or = 60 mg/dl - LO W CARDIOVASCULAR RISK <40 mg/dl - HIGH CARDIOVASCULAR RISK Normal [facility] Comment on above: Performed By: #### C MP, LIPID #### [facility] [address] [address] [address] Ricky Valenzuela LDL CALC NORMAL SEE BELOW Normal [facility] Comment on above: Result Comment: <100 mg/dl OPTIMAL 100 - 129 mg/dl NEAR OR ABOVE OPTIMAL 130 - 159 mg/dl BORDERLINE HIGH 160 - 189 mg/dl HIGH >190 mg/dl VERY HIGH Performed By: #### C MP, LIPID #### [facility] [address] [address] [address] Ricky Valenzuela Triglyceride [Mass/Vol] 194 mg/dL Critically high <=[address] [facility] Comment on above: Performed By: #### C MP, LIPID #### [facility] [address] [address] [address] Ricky Valenzuela VLDL CALC 38.8 mg/dL Normal [facility] Comment on above: Performed By: #### C MP, LIPID #### [facility] [address] [address] [address] Ricky Valenzuela MICROALBUMIN, RAND URon 07-13 mALB 13.1 mg/L Normal <=30.0 [facility] Comment on above: Performed By: #### M ALBR ####[facility] [address] [place], [place] [address]XlDr. Ricky Valenzuela PROF 14(COMP METB)on 022 Albumin [Mass/Vol] 3.3 g/dL Critically low 3.4-5.0 [facility] Comment on above: Performed By: #### C MP, LIPID #### [facility] [address] [address] [address] Ricky Valenzuela Albumin/Globulin [Mass ratio] 0.8 {ratio} Normal [facility] Comment on above: Performed By: #### C MP, LIPID #### [facility] [address] [place] [address] Dr. Ricky Valenzeula ALP [Catalytic activity/Vol] 93 U/L Normal 46-116 [facility] Comment on above: Performed By: #### C MP, LIPID #### [facility] [address] [place] [address] Dr. Ricky Valenzuela ALT [Catalytic activity/Vol] 37 U/L Normal 14-59 [facility] Comment on above: Performed By: #### C MP, LIPID #### [facility] [address] [place] [address] Dr. Ricky Valenzuela Anion gap [Moles/Vol] 10.9 mmol/L Normal Th [facility] Comment on above: Performed By: #### C MP, LIPID #### [facility] [address] [place] [address] Dr. Ricky Valenzuela AST [Catalytic activity/Vol] 10 U/L Critically low 15-37 [facility] Comment on above: Performed By: #### C MP, LIPID #### [facility] [address] [place] [address] Dr. Ricky Valenzuela Bilirubin [Mass/Vol] 0.2 mg/dL Normal 0.2-1.0 [facility] Comment on above: Performed By: #### C MP, LIPID #### [facility] [address] [place] [address] Dr. Ricky Valenzuela Calcium [Mass/Vol] 9.0 mg/dL Normal 8.5-10.1 [facility] Comment on above: Performed By: #### C MP, LIPID #### [facility] [address] [place] [address] Dr. Ricky Valenzuela Chloride [Moles/Vol] 100 mmol/L Normal 98-107 [facility] Comment on above: Performed By: #### C MP, LIPID #### [facility] [address] [place] [address] Dr. Ricky Valenzuela CO2 [Moles/Vol] 32.2 mmol/L Critically high 21.0-32.0 [facility] Comment on above: Performed By: #### C MP, LIPID #### [facility] [address] [place] [address] Dr. Ricky Valenzuela Creatinine [Mass/Vol] 0.95 mg/dL Normal 0.55-1.02 [facility] Comment on above: Performed By: #### C MP, LIPID #### [facility] [address] [place] [address] Dr. Ricky Valenzuela EGFR-AF BENINESE >60 Normal >=60 [facility] Comment on above: Performed By: #### C MP, LIPID #### [facility] [address] [place] [address] Dr. Ricky Valenzuela EGFR-NON AF BENINESE >60 Normal >=60 [facility] Comment on above: Performed By: #### C MP, LIPID #### [facility] [address] [place] [address] Dr. Ricky Valenzuela Globulin (S) [Mass/Vol] 4.2 g/dL Normal [facility] Comment on above: Performed By: #### C MP, LIPID #### [facility] [address] [place] [address] Dr. Ricky Valenzuela Glucose [Mass/Vol] 200 mg/dL Critically high 74-106 [facility] Comment on above: Performed By: #### C MP, LIPID #### [facility] [address] [address] [address] Ricky Valenzuela Potassium [Moles/Vol] 4.1 mmol/L Normal 3.5-5.1 [facility] Comment on above: Performed By: #### C MP, LIPID #### [facility] [address] [place] [address] Dr. Ricky Valenzuela Protein [Mass/Vol] 7.5 g/dL Normal 6.4-8.2 [facility] Comment on above: Performed By: #### C MP, LIPID #### [facility] [address] [place] [address] Dr. Ricky Valenzuela Sodium [Moles/Vol] 139 mmol/L Normal 136-145 [facility] Comment on above: Performed By: #### C MP, LIPID #### [facility] [address] [place] [address] Dr. Ricky Valenzuela Urea nitrogen [Mass/Vol] 13.0 mg/dL Normal 7.0-18.0 [facility] Comment on above: Performed By: #### C MP, LIPID #### [facility] [address] [place] [address] Dr. Ricky Valenzuela Urea nitrogen/Creatinine [Mass ratio] 13.7 mg/mg Normal [facility] Comment on above: Performed By: #### C MP, LIPID #### [facility] [address] [place] [address] Dr. Ricky Valenzuela POINT OF CARE GLUCOSEon 06-12 Glucose [Mass/Vol] 176 mg/dL Critically high 74-106 [facility] Comment on above: Performed By: #### P OCGLUC #### [facility] [address] [place] [address] Dr. Ricky Valenzuela Vital Signs Date Time Vital Sign Value Performing Clinician Facility 01-18-2023 09:[id number] Body height 156.21 cm Elle Hendricks Other [facility] Other 01-18-2023 09:10-0500 Body mass index (BMI) [Ratio] 42.82 kg/m2 Elle Hendricks Other [facility] Other 01-18-2023 09:10-0500 Body temperature 98.2 [degF] Elle Hendricks Other [facility] Other 01-18-2023 09:10-0500 Body weight 104.51 kg Elle Ruthie Other [facility] Other 01-18-2023 09:10-0500 Diastolic blood pressure 92 mm[Hg] Elle Ruthie Other [facility] Other 01-18-2023 09:10-0500 Respiratory rate 18 /min Elle Dejesusmond Other [facility] Other 01-18-2023 09:10-0500 SaO2% (BldA) [Mass fraction] 97 % Elle Ruthie Other [facility] Other 01-18-2023 09:10-0500 Systolic blood pressure 145 mm[Hg] Elle Ruthie Other [facility] Other Encounters Encounter Date Encounter Type Care Provider Facility Start: 10-04-2023 ambulatory Facility:E Michael [facility] Start: 10-03-2023 End: 10-03-2023 ambulatory SONAM MARRTRICK Not Available Start: 08-22-2023 End: 08-22-2023 ambulatory CRISTINA FAWWAD Not Available Start: 08-05-2023 End: 08-05-2023 ambulatory CRISTINA FAWWAD Not Available Start: 07-04-2023 End: 07-04-2023 ambulatory CRISTINA FAWWAD Not Available Start: 05-02-2023 End: 05-02-2023 ambulatory CRISTINA FAWWAD Not Available Start: 04-30-2023 End: 04-30-2023 ambulatory [facility] Work Phone: Start: 04-30-2023 End: 04-30-2023 Patient encounter procedure [facility] Work Phone: Start: 03-21-2023 Orders Only Shaikh Maricel HOLLIS Work Phone: [facility] Comment on above: Diabetic polyneuropa thy associated with type 2 diabetes mellitus (CMS/HCC) (Primary Dx) Start: 03-19-2023 End: 03-19-2023 ambulatory Ana Luisa Curtis Other [facility] Other Start: 03-19-2023 Office outpatient vi sit 15 minutes Ana Luisa Curtis [facility] Start: 02-25-2023 End: 02-25-2023 ambulatory ELIDA GARCIA Not Available Start: 01-29-2023 End: 01-29-2023 ambulatory CRISTINA FASHIRLEYLevon Not Available Start: 01-23-2023 End: 01-23-2023 ambulatory Ana Luisa Curtis Other [facility] Other Start: 01-23-2023 Office outpatient vi sit 15 minutes Ana Luisa Curtis [facility] Start: 01-18-2023 End: 01-18-2023 ambulatory Elle Hendricks Other [facility] Other Start: 01-18-2023 Office outpatient vi sit 15 minutes Elle Hendricks [facility] Start: 09-19-2022 End: 09-19-2022 ambulatory Ana Luisa Curtis Other [facility] Other Start: 09-19-2022 Telephone encounter Ana Luisa Curtis F [facility] Start: 07-12-[address] JONATHAN Seayi ty:H1 Start: 06-07-2022 End: 06-08-[address] JONATHAN EDWARDS Facility:[facility]1 Start: 05-02-2022 End: 05-02-2022 ambulatory Ana Luisa Curtis Other [place] [employer] Other Start: 05-02-2022 Office outpatient ne w 30 minutes Ana Luisa Curtis [facility] Start: 04-12-2022 End: 04-13-[address] JONATHAN EDWARDS Facility:[facility]1 Start: 03-08-2022 End: 03-09-[address] JONATHAN EDWARDS Facility:[facility]1 Start: 02-16-2022 End: 02-17-[address] JONATHAN EDWARDS Facility:[facility]1 Start: 02-09-2022 End: 02-10-[address] RICARDO HOLM . Facility:[facility]1 Start: 11-16-2021 End: 11-17-[address] JONATHAN EDWARDS Facility:[facility]1 Start: 11-01-2021 End: 11-02-2021 ambulatory CRYS PIERCE . Facility:[facility]1 Start: 08-30-2021 End: 08-31-2021 ambulatory NIKKIE BARCLAY [facility] Start: 08-30-2021 End: 08-30-2021 Subsequent hospital visit by physician Sr Edwards DO Work Phone: [facility] Comment on above: Routine cervical sme ar Start: 08-16-2021 Encounter for genera l adult medical examination without abnormal findings DR RICARDO HOLM . [facility] Start: 08-09-2021 End: 08-10-2021 Encounter for [...] for malign ant neoplasm of colon [facility] Start: 08-30-2024 Screening for malign ant neoplasm of cervix [facility] Start: 03-20-2024 Screening for malign ant neoplasm of breast Mammogram [facility] Start: 02-27-2024 End: 02-27-2024 Patient encounter procedure 02/27/2024 11:35 AM EST Office Visit [facility] [address] [place] [address] Elida Garcia MD [address] [place] [address] [facility] Start: 02-12-2024 Glaucoma screening Diabetes: R etinopathy Screening [facility] Start: 08-11-2023 Influenza vaccination Influenza Vacc ine (#1) [facility] Comment on above: Postponed from 10/12 (Patient Refused) Start: 05-02-2023 End: 05-02-2023 Patient encounter procedure 05/02/2023 2:00 PM EDT Office Visit [facility] [address] [place] [address] Shaikh Connelly MD [address] [place] [address] [facility] Start: 02-17-2023 Hemoglobin A1c measurement Diabetes: Hemoglobin A1C [facility] Start: 09-04-2022 End: 09-04-2022 Patient encounter procedure 09/04/2022 Office Visit Obstetrics and Gynecology Nikkie Barclay, CAR SEAT UPHOLSTERER - CNM [address] [facility] [address] [place] [address] [facility] Start: 10-12-2021 Influenza vaccination Flu vaccine (# 1) [facility] Start: 10-21-2013 Screening for malign ant neoplasm of breast Breast cancer screen [facility] Start: 10-21-2013 Shingles vaccine (1 of 2) Shingles vaccine (1 of 2) [facility] Start: 10-21-2008 Screening for malign ant neoplasm of colon [facility] Start: 2003 Lipid panel Lipids [facility] Start: 10-21-1998 Diabetes screen Diabetes screen [facility] Start: 10-21-1993 Screening for malign ant neoplasm of cervix [facility] Start: 10-21-1982 DTaP/Tdap/Td vaccine (1 - Tdap) DTaP/Tdap/Td vaccine (1 - Tdap) [facility] Start: 10-21-1982 Urine screening for protein Diabetes: Urine Protein Screening [facility] Start: 10-21-1981 Hepatitis C screening Hepatitis C sc reen [facility] Start: 10-21-1978 HIV screening HIV screen [facility] Start: 1975 Depression Screen Depression Screen [facility] Start: 04-20-1964 COVID-19 Vaccine (#1) COVID-19 Vacci ne (#1) [facility] Start: 1963 Screening for malign ant neoplasm of colon [facility] End: 08-30-2021 Cytopathology procedure, preparation of smear, genital source [facility] Routine Routine cervical smear 1 Occurrences starting 08/30/2021 until 08/30/2021 [facility] Work Phone: Comment on above: 1 Occurrences starti ng 08/30/2021 until 08/30/2021 Immunizations Immunization Date Immunization Notes Care Provider Tima garcia 01-14-2017 influenza, injectabl e, quadrivalent, preservative free [facility] Payers Date Payer Category Payer Unknown [employer] [id number] 2022-Present [phone] [address] [address] [place] [address] [id number] 2012 Medicare MEDICARE MEDICAR E PART B [id number] 2012-[place] [address] Medicare [id number]. [id number] 1963 Unknown [id number] 2.16.840.1.518655.3.579.2.17 3 1963 Unknown [id number] 2.16.840.1.990335.3.579.2.59 3 1963 Unknown [id number] 2.16.840.1.616127.3.579.2.59 3 1963 Unknown [id number] 2.16.840.1.662096.3.579.2.59 3 1963 Unknown [id number] 2.16.840.1.441716.3.579.2.59 3 1963 Unknown [id number] 2.16.840.1.154004.3.579.2.59 3 1963 Unknown [id number] 2.16.840.1.528616.3.579.2.59 3 1963 Unknown [id number] 2.16.840.1.951966.3.579.2.59 3 1963 Unknown [id number] 2.16.840.1.202973.3.579.2.59 3 1963 Unknown [id number] 2.16.840.1.157336.3.579.2.59 3 1963 Unknown [id number] 2.16.840.1.896942.3.579.2.59 3 1963 Unknown [id number] 2.16.840.1.563372.3.579.2.59 3 1963 Unknown [id number] 2.16.840.1.151186.3.579.2.59 3 1963 Unknown [id number] 2.16.840.1.451956.3.579.2.59 3 1963 Unknown [id number] 2.16.840.1.727659.3.579.2.59 3 1963 Unknown [id number] 2.16.840.1.150655.3.579.2.59 3 1963 Unknown [id number] 2.16.840.1.051055.3.579.2.59 3 1963 Unknown [id number] 2.16.840.1.534266.3.579.2.12 59 1963 Unknown [id number] 2.16.840.1.359739.3.579.2.12 59 1963 Unknown [id number] 2.16.840.1.498169.3.579.2.12 59 1963 Unknown [id number] 2.16.840.1.045742.3.579.2.12 59 1963 Unknown [id number] 2.16.840.1.505585.3.579.2.12 59 1963 Unknown [id number] 2.16.840.1.962786.3.579.2.12 59 1963 Unknown [id number] 2.16.840.1.407848.3.579.2.12 59 1959 Medicare [id number] 1.2.840.928015.1.13.239.2.7. 3.224520.315 1959 Unknown [id number] 1.2.840.936840.1.13.239.2.7. 3.736101.315 1959 Unknown [id number] 2.16.840.1.797075.19 Medicare Medicare [id number] Self-pay Self Pay [id number] Social History Date Type Detail Facility Start: 08-30-2021 Tobacco smoking stat us [facility] Smokes tobacco daily [employer] Phone: History of tobacco use Cigarette Smoker [facility] [employer] Phone: Start: 08-30-2021 End: 01-29-2023 Tobacco use and exposure Smokeless tobacco non-user [facility] Phone: Start: 08-30-2021 Alcohol intake Current drinke r of alcohol (finding) [facility] Phone: Start: 08-30-2021 History SDOH Alcohol Comment occasional [facility] Phone: Start: 1965 Sex Assigned At Not on file [facility] [employer] Phone: Start: 08-20-2021 End: 08-30-2021 Exposure to SARS-CoV-2 (event) Not sure [email or web address] Start: 02-25-2023 Sex Assigned At N [facility] Other Start: 01-23-2023 End: 01-29-2023 Tobacco smoking status [facility] Ex-smoker [facility] History of tobacco use Current smoker [facility] Start: 01-29-2023 End: 02-25-2023 Cigarettes smoked current (pack per day) - Reported 0.5 [facility] Start: 02-25-2023 Alcohol intake Lifetime non-d gus (finding) [facility] Start: 1965 Sex Assigned At Female F [facility] Medical Equipment Procedure Code Equipment Code Equipment Origin al Text Equipment Identifier Dates USE TO TEST BLOO D SUGAR TWICE DAILY [id number] Start: 06-08-2021 Clinical Notes 06-20-2021 to 03-19-2023 [...] Mar, Left hand pain (ICD-10 - M79.642) [facility] Other 12-13-2023 Evaluation note* Encounter Date Diagnosis [...] noted. Patient will f/u in 4 weeks. [facility] Other 12-08-2023 Evaluation note* Encounter Date Diagnosis [...] left hand x-ray that was performed at [facility] which revealed degenerative changes in the hand as well as a remote avulsion fracture of the thumb. Patient states her family doctor is treating her for gout in her hand. Jan, History of gout (ICD-10 - Z87.39) Jan, Other Gout material w as printed [facility] Other 08-09-2023 Evaluation note* Encounter Date Diagnosis Assessment Notes Treatment Notes Treatment Clinical Notes Sep, Right wrist pain (ICD-10 - M25.531) [facility] Other 04-27-2023 NoteCONSULTATION CONSULTATION DATE: 06/07/2022 TO: [...] our patients to inform us about any [id number] medications or herbal remedies/nutritional supplements/alternative remedies. 2. [...] treatment options with their primary care provider.[id number] Evaluation note * Encounter Date Diagnosis Assessment [...] understanding and is agreeable to treatment plan. [facility] Other 01-26-2023 NoteCONSULTATION PROCEDURE DATE: 03/08/2022 PREOPERATIVE [...] will be followed up in the clinic.[facility] [id number] NotePROCEDURE: XR KNEE LT 4V or > [...] authenticated by: PATTIE SALTER Date: 2022-02-16 11:29[facility]12-30-2022 NoteCONSULTATION CONSULTATION DATE: 02/09/2022 HISTORY [...] office today. Patient agrees with this plan.[facility] [id number] NotePROCEDURE: XR WRIST RT MIN 3 V COMPARISON: None. HISTORY: Injury of right wrist FINDINGS: BONES:No acute fracture or dislocation. Corticated bone fragment identified along the first carpometacarpal joint [degenerative in nature SOFT TISSUES:Moderate diffuse soft tissue swelling EFFUSION:None visible. OTHER: Negative. IMPRESSION: Soft tissue swelling, no acute fracture Electronically authenticated by: RYAN GOLDMAN Date: 2021-11-16 18:59[facility] [id number] NoteCONSULTATION CONSULTATION DATE: 11/01/2021 HISTORY OF PRESENT [...] otherwise indicated. Patient agrees with this plan.[facility] [id number] NoteCONSULTATION PROCEDURE DATE: 11/01/2021 PRE AND POSTOPERATIVE [...] will be followed up in the clinic.[facility] [id number] NoteCONSULTATION PROCEDURE DATE: 08/09/2021 PREOPERATIVE DIAGNOSIS: Bilateral [...] will be followed up in the clinic. [facility] Signed and Approved by: CRYS PIERCE . 08/10/2021 13:37:00[facility] [id number] NoteCONSULTATION CONSULTATION DATE: 07/19/2021 HISTORY OF PRESENT [...] injections. Patient acknowledges and all questions answered. [facility] Signed and Approved by: CRYS PIERCE . 07/20/2021 10:33:00[facility]05-25-2022 NotePROCEDURE: XR FOOT RT MIN [...] Electronically authenticated by: PATTIE SALTER Date: 2021-07-05 11:11[facility]05-10-2022 NoteCONSULTATION CONSULTATION DATE: 06/20/2021 CHIEF [...] like to proceed. CC: Jonathan Edwards M.D. [facility] Signed and Approved by: DR RICARDO HOLM . 06/27/2021 10:40:00[facility] [place] [facility] Diagnosis Routine cervical smear Screening for malignant neoplasm of the cervix documented in this encounter [facility] Work Phone: evaluation note* Diagnosis Diabetic polyneuropathy associated with type 2 diabetes mellitus ([facility])- Primary documented in this encounter [facility] HealthcareEvaluation noteNo assessment information availablePromedica [facility] Work Phone: History general Narrative - Reported* Type Description Date Medical History GERD (gastroesophageal reflux di sease) Medical History Migraine headache Medical History Arthritis Medical History Edema of both legs Medical History Diabetes mellitus, type 2 Medical History Chronic back pain Surgical History ablasion Surgical History back surgery Surgical History hysterectomy Surgical History tubal ligation Hospitalization History see above [employer] Other Summary Purpose Family History No Family [...] Care Teams (unrecognized sec tion and content) Eligibility Manager Relationship Specialty Start Date End Date Sr Jonathan Edwards DO [address] [place] [address] PCP - General Family Medicine 08/30/21 Eligibility Manager Relationship Specialty Start Date End Date [...] CREATED AUTHOR AUTHOR'S ORGANIZ ATION 06/08/2022 [facility] DATE CREATED AUTHOR AUTHOR'S ORGANIZ ATION 10/05/2023 [facility] EPIC DATE CREATED AUTHOR AUTHOR'S ORGANIZ ATION 10/06/2023 [facility] REASON FOR VISIT (unrecogniz ed section and [...] BE BASED ON THE PRIMARY CLINICAL RECORDS. [employer] [facility]. provides no warranty or guarantee of the accuracy or completeness of information in this document.
== END 2023-10-16 11:15 | disposition home or self-care (01) ==
LOC: EC 11:14
PROVIDERS: PCP Internal Medicine; Visit Provider Podiatrist Foot & Ankle Surgery
DX: M79.672 Pain in left foot (principal); S92.325D Nondisplaced fracture of second metatarsal bone, left foot, subsequent encounter for fracture with routine healing
CPT/HCPCS: 73630

== ENCOUNTER 2023-10-29 07:36 | Day surgery (SDC) | payer OTHER, MEDICARE, SELFPAY ==
--- OUTSIDE RECORDS SUMMARY | 2023-10-29 07:43 | XMS_ITS | CCD ---
Author Organization [facility] Care Team Providers Care Jet Pilot Name Role Phone House DO, Sr Jonathan [...] Unavailable GAETANO, DR PATTIE Nieves Consulting Unavailable SSUSY JONES Consulting Unavailable BEAR CREEK, DR BASURTO Attending Unavailable BEAR CREEK, DR BASURTO Primary Care Unavailable BEAR CREEK, DR BASURTO Admitting Unavailable BEAR CREEK, DR BASURTO Consulting Unavailable BEAR CREEK, DR BASURTO Primary Care Unavailable GAETANO, DR PATTIE Nieves Consulting Unavailable LAKSHMIPATHY ., NARENDRONALDATH Admitting Nellie vailable LAKSHMIPATHY ., DEMETRIUSATH Attending Nellie vailable LAKSHMIPATHY ., BILLY Consulting Nellie vailable HOUSE, DR BASURTO Admitting Unavailable BEAR CREEK, DR BASURTO Attending Unavailable BEAR CREEK, DR BASURTO Primary Care Unavailable OOSTBURG, DR RYAN Guzman Consulting Unavailable [place], DR JONATHAN Trimble Unavailable HOLM ., DR [...] Unavailable PIERCE ., CRYS Trimble Unavailable BEAR CREEK, DR BASURTO Primary Care Unavailable HOLM ., DR RICARDO Belcher Admitting Unavailable HOLM ., DR RICARDO Belcher Attending Unavailable LAKSHMIPATHY ., BILLY Consulting Nellie vailable BEAR CREEK, DR BASURTO Primary Care Unavailable HOLM [...] day Active take 1 capsule by mo [facility] twice daily pregabalin (LYRICA) 50 MG [...] 12, 2017 1:00am January 15, 2017 2:23pm Yxzjotphgoss-We-Ehf n-Minerals (Multiple Vitamin, Womens) Tablet (1 source) Start: 01-12-2017 End: 01-15-2017 Jyiyecsmymmt-Ff-Qr on-Minerals (Multiple Vitamin, Womens) Tablet Discontinued PO [...] PATTIE SALTER Date: 2022-06-07 11:15 Normal [facility] [place] CBC AUTO DIFFon 04-12-2022 BASO # 0.1 103/ul Normal 0.0-0.1 [facility] [place] Comment on above: Performed By: #### C BC ####[facility] [place] [address] [place] [address]Dr. Ricky Valenzuela Basophils/100 WBC (Bld) 0.5 % Normal 0.2-2.0 [facility] Comment on above: Performed By: #### C BC ####[facility] [place] [address] [place], [place] [address]Dr. Ricky Valenzuela EO # 0.3 103/ul Normal 0.0-0.7 [facility] [place] Comment on above: Performed By: #### C BC ####[facility] [place] Pr[address] [place], [place] [address]Dr. Ricky Valenzuela Eosinophils/100 WBC (Bld) 3.0 % Normal 0.9-7.0 [facility] Comment on above: Performed By: #### C BC ####[facility] [place] [address] [place], [place] [address]Dr. Ricky Valenzuela Erythrocyte distribution width (RBC) [Ratio] 14.8 % Normal 11.0-15.0 [facility] [place] Comment on above: Performed By: #### C BC ####[facility] [place] [address] [place], [place] [address]Dr. Ricky Valenzuela Hematocrit (Bld) [Volume fraction] 40.6 % Normal 36.0-48.0 [facility] [place] Comment on above: Performed By: #### C BC ####[facility] [place] [address] [place], [place] [address]Dr. Ricky Valenzuela Hemoglobin (Bld) [Mass/Vol] 13.5 g/dL Normal 12.0-16.0 [facility] Comment on above: Performed By: #### C BC ####[facility] [place] [address] [place] [id number] Valenzuela IG # 0.16 10e3/ul Critically high 0.00-0.03 [facility] Comment on above: Performed By: #### C BC ####[facility] [place] [address] [place] [id number] Valenzuela IG % 1.4 % Critically high 0.0-0.5 [facility] Comment on above: Performed By: #### C BC ####[facility] [place] [address]ms[address] [place] [address]DrPasquale Valenzuela LYMPH # 3.4 103/ul Normal 1.2-3.8 [facility] Comment on above: Performed By: #### C BC ####[facility] [place] [address] [place] [address]DrPasquale Valenzuela Lymphocytes/100 WBC (Bld) 30.4 % Normal 20.5-60.0 [facility] Comment on above: Performed By: #### C BC ####[facility] [place] [address] [place] [address]DrPasquale Valenzuela MANUAL DIFF REQ NO Normal [facility] Comment on above: Performed By: #### C BC ####[facility] [place] [address] [place] [address]DrPasquale Valenzuela MCH (RBC) [Entitic mass] 31.8 pg Normal 26.7-34.0 [facility] Comment on above: Performed By: #### C BC ####[facility] [place] [address] [place] [id number] Valenzuela MCHC (RBC) [Mass/Vol] 33.3 g/dL Normal 29.9-35.2 [facility] [place] Comment on above: Performed By: #### C BC ####[facility] [place] [address]jhnj[address] [place] [id number] Valenzuela MCV (RBC) [Entitic vol] 95.5 fL Normal 81.0-99.0 [facility] [place] Comment on above: Performed By: #### C BC ####[facility] [place] N[address]bsqi[address] [place] [id number]. Ricky Valenzuela MONO # 0.9 103/ul Critically high 0.3-0.8 [facility] Comment on above: Performed By: #### C BC ####[facility] [place] [address]wenepm[address] [place] [id number]. Ricky Nicolas Monocytes/100 WBC (Bld) 7.7 % Normal 1.7-12.0 [facility] [place] Comment on above: Performed By: #### C BC ####[facility] [place] [address]okt[address] [place] [address]Dr. Ricky Valenzuela NEUT # 6.3 103/ul Normal 1.4-6.5 [facility] [place] Comment on above: Performed By: #### C BC ####[facility] [place] [address]fu[address] [place] [address]Dr. Lesleysharron Valenzuela Neutrophils/100 WBC (Bld) 57.0 % Normal 43.0-75.0 [facility] [place] Comment on above: Performed By: #### C BC ####[facility] [place] [address] [place], [place] [address]Dr. Ricky Valenzuela Platelet mean volume (Bld) [Entitic vol] 9.8 fL Normal 9.5-13.5 [facility] [place] Comment on above: Performed By: #### C BC ####[facility] [place] [address] [place], [place] [id number]. Ricky Valenzuela PLT 246 103/ul Normal 150-450 [facility] [place] Comment on above: Performed By: #### C BC ####[facility] [place] [address] [place], [place] [id number]. Ricky Valenzuela RBC 4.25 106/ul Normal 4.20-5.40 [facility] [place] Comment on above: Performed By: #### C BC ####[facility] [place] [address] [place] [id number]. Ricky Valenzuela WBC 11.1 103/ul Critically high 4.0-11.0 [facility] Comment on above: Performed By: #### C BC ####[facility] [place] [address] [place] [address]Dr. Ricky Valenzuela GLYCOHEMOGLOBIN A1Con 2022 ADA RECOMMENDATION SEE BELOW Normal [facility] Comment on above: Result Comment: ADA RECOMMENDED LIMIT 4.0 - 6.0 ADA THERAPEUTIC TARGET < 7.0 ACTION SUGGESTED > 7.0 Performed By: #### A 1C ####[facility] [place] [address]ps[address]te[address] [place] [address]DrPasquale Valenzuela Glucose [Mass/Vol] 160 mg/dL Normal [facility] Comment on above: Performed By: #### A 1C ####[facility] [place] [address]rmno2[address] [place] [address]DrPasquale Valenzuela HbA1c (Bld) [Mass fraction] 7.2 % Critically high 4.5-6.2 [facility] Comment on above: Performed By: #### A 1C ####[facility] [place] [address] [place] [address]DrPasquale Valenzuela MICROALBUMIN, RAND URon - mALB <1.3 Normal <=30.0 [facility] Comment on above: Performed By: #### M ALBR #### [facility] [place] Laboratory [address] [place] [address] [address] Ricky Valenzuela PROF 14(COMP METB)on 023 Albumin [Mass/Vol] 3.3 g/dL Critically low 3.4-5.0 [facility] Comment on above: Performed By: #### C MP #### [facility] [place] [facility] [address] [address] [address] Ricky Valenzuela Albumin/Globulin [Mass ratio] 0.9 {ratio} Normal [facility] Comment on above: Performed By: #### C MP #### [facility] [place] [facility] [address] [address] [address] Ricky Valenzuela ALP [Catalytic activity/Vol] 90 U/L Normal 46-116 [facility] Comment on above: Performed By: #### C MP #### [facility] [place] [facility] [address] [address] [address] Ricky Valenzuela ALT [Catalytic activity/Vol] 42 U/L Normal 14-59 [facility] Comment on above: Performed By: #### C MP #### [facility] [place] Laboratory [address] [place] [address] Dr. Ricky Valenzuela Anion gap [Moles/Vol] 10.1 mmol/L Normal [facility] Comment on above: Performed By: #### C MP #### [facility] [place] [facility] [address] [address] [address] Ricky Valenzuela AST [Catalytic activity/Vol] 21 U/L Normal 15-37 [facility] Comment on above: Performed By: #### C MP #### [facility] [place] [facility] [address] [address] [address] Ricky Valenzuela Bilirubin [Mass/Vol] 0.3 mg/dL Normal 0.2-1.0 [facility] Comment on above: Performed By: #### C MP #### [facility] [place] [facility] [address] [place] [address] Dr. Ricky Valenzuela Calcium [Mass/Vol] 9.8 mg/dL Normal 8.5-10.1 [facility] Comment on above: Performed By: #### C MP #### [facility] [place] [facility] [address] [place] [address] Dr. Ricky Valenzuela Chloride [Moles/Vol] 99 mmol/L Normal 98-107 [facility] Comment on above: Performed By: #### C MP #### [facility] [place] [facility] [address] [address] [address] Ricky Valenzuela CO2 [Moles/Vol] 33.7 mmol/L Critically high 21.0-32.0 [facility] Comment on above: Performed By: #### C MP #### [facility] [place] [facility] [address] [place] [address] Dr. Ricky Valenzuela Creatinine [Mass/Vol] 0.94 mg/dL Normal 0.55-1.02 [facility] Comment on above: Performed By: #### C MP #### [facility] [place] [facility] [address] [place] [address] Dr. Ricky Valenzuela EGFR-AF GERMAN >60 Normal >=60 [facility] Comment on above: Performed By: #### C MP #### [facility] [place] [facility] [address] [address] [address] Ricky Valenzuela EGFR-NON AF GERMAN >60 Normal >=60 [facility] Comment on above: Performed By: #### C MP #### [facility] [place] [facility] [address] [address] [address] Ricky Valenzuela Globulin (S) [Mass/Vol] 3.8 g/dL Normal [facility] Comment on above: Performed By: #### C MP #### [facility] [place] [facility] [address] [address] [address] Ricky Valenzuela Glucose [Mass/Vol] 168 mg/dL Critically high 74-106 [facility] Comment on above: Performed By: #### C MP #### [facility] [place] [facility] [address] [address] [address] Ricky Valenzuela Potassium [Moles/Vol] 4.8 mmol/L Normal 3.5-5.1 [facility] Comment on above: Performed By: #### C MP #### [facility] [place] [facility] [address] [address] [address] Ricky Valenzuela Protein [Mass/Vol] 7.1 g/dL Normal 6.4-8.2 [facility] Comment on above: Performed By: #### C MP #### [facility] [place] [facility] [address] [address] [address] Ricky Valenzuela Sodium [Moles/Vol] 138 mmol/L Normal 136-145 [facility] Comment on above: Performed By: #### C MP #### [facility] [place] [facility] [address] [address] [address] Ricky Valenzuela Urea nitrogen [Mass/Vol] 22.0 mg/dL Critically high 7.0-18.0 [facility] Comment on above: Performed By: #### C MP #### [facility] [place] [facility] [address] [address] [address] Ricky Valenzuela Urea nitrogen/Creatinine [Mass ratio] 23.4 mg/mg Normal [facility] Comment on above: Performed By: #### C MP #### [facility] [place] [facility] [address] [address] [address] Ricky Valenzuela Cytologyon 08-30-2021 Cytology (NOTE) INTERPRETATION Vaginal material, (ThinPrep vial, Imaging-assisted review): Specimen Adequacy: Satisfactory for evaluation. Descriptive Diagnosis: Negative for intraepithelial lesion or malignancy. 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 Comment on above: Performed By: #### P PPVP #### [address] [id number] [employer] Tier Off: Luca Cummins MD CBC AUTO DIFFon 08-09-2021 BASO # 0.1 103/ul Normal 0.0-0.1 [facility] Comment on above: Performed By: #### C BC #### [facility] [place] [facility] [address] [address] [address] Ricky Valenzuela Basophils/100 WBC (Bld) 0.8 % Normal 0.2-2.0 [facility] Comment on above: Performed By: #### C BC #### [facility] [place] [facility] [id number] Ricky Valenzuela EO # 0.2 103/ul Normal 0.0-0.7 [facility] Comment on above: Performed By: #### C BC #### [facility] [place] [facility] [address] [address] [address] Ricky Valenzuela Eosinophils/100 WBC (Bld) 2.1 % Normal 0.9-7.0 [facility] Comment on above: Performed By: #### C BC #### [facility] [place] [facility] [address] [address] [address] Ricky Valenzuela Erythrocyte distribution width (RBC) [Ratio] 15.2 % Critically high 11.0-15.0 [facility] Comment on above: Performed By: #### C BC #### [facility] [place] [facility] [address] [place] [address] Dr. Ricky Valenzuela Hematocrit (Bld) [Volume fraction] 41.5 % Normal 36.0-48.0 [facility] Comment on above: Performed By: #### C BC #### [facility] [place] [facility] [address] [place] [address] Dr. Ricky Valenzuela Hemoglobin (Bld) [Mass/Vol] 13.5 g/dL Normal 12.0-16.0 [facility] Comment on above: Performed By: #### C BC #### [facility] [place] [facility] [address] [place] [address] Dr. Ricky Valenzuela IG # 0.42 10e3/ul Critically high 0.00-0.03 [facility] Comment on above: Performed By: #### C BC #### [facility] [place] [facility] [address] [place] [address] Dr. Ricky Valenzuela IG % 3.8 % Critically high 0.0-0.5 [facility] Comment on above: Performed By: #### C BC #### [facility] [place] [facility] [address] [place] [address] Dr. Ricky Valenzuela LYMPH # 3.3 103/ul Normal 1.2-3.8 [facility] Comment on above: Performed By: #### C BC #### [facility] [place] [facility] [address] [place] [address] Dr. Ricky Valenzuela Lymphocytes/100 WBC (Bld) 29.1 % Normal 20.5-60.0 [facility] Comment on above: Performed By: #### C BC #### [facility] [place] [facility] [address] [place] [address] Dr. Ricky Valenzuela MANUAL DIFF REQ NO Normal [facility] Comment on above: Performed By: #### C BC #### [facility] [place] [facility] [address] [place] [address] Dr. Ricky Valenzuela MCH (RBC) [Entitic mass] 32.4 pg Normal 26.7-34.0 [facility] [place] Comment on above: Performed By: #### C BC #### [facility] [place] [facility] [address] [place] [address] Dr. Ricky Valenzuela MCHC (RBC) [Mass/Vol] 32.5 g/dL Normal 29.9-35.2 [facility] [place] Comment on above: Performed By: #### C BC #### [facility] [place] [facility] [address] [place] [address] Dr. Ricky Valenzuela MCV (RBC) [Entitic vol] 99.5 fL Critically high 81.0-99.0 [facility] Comment on above: Performed By: #### C BC #### [facility] [place] [facility] [address] [place] [address] Dr. Ricky Valenzuela MONO # 0.8 103/ul Normal 0.3-0.8 [facility] [place] Comment on above: Performed By: #### C BC #### [facility] [place] [facility] [address] [place] [address] Dr. Ricky Valenzuela Monocytes/100 WBC (Bld) 7.5 % Normal 1.7-12.0 [facility] Comment on above: Performed By: #### C BC #### [facility] [place] [facility] [address] [place] [address] Dr. Ricky Valenzuela NEUT # 6.3 103/ul Normal 1.4-6.5 [facility] [place] Comment on above: Performed By: #### C BC #### [facility] [place] [facility] [address] [place] [address] Dr. Ricky Valenzuela Neutrophils/100 WBC (Bld) 56.7 % Normal 43.0-75.0 [facility] [place] Comment on above: Performed By: #### C BC #### [facility] [place] [facility] [address] [place] [address] Dr. Ricky Valenzuela Platelet mean volume (Bld) [Entitic vol] 9.8 fL Normal 9.5-13.5 [facility] [place] Comment on above: Performed By: #### C BC #### [facility] [place] [facility] [address] [place], [place] [address] Dr. Ricky Valenzuela PLT 265 103/ul Normal 150-450 [facility] Comment on above: Performed By: #### C BC #### [facility] [place] [facility] [address] [place], [place] [address] Dr. Ricky Valenzuela RBC 4.17 106/ul Critically low 4.20-5.40 [facility] Comment on above: Performed By: #### C BC #### [facility] [place] [facility] [address] [place], [place] [address] Dr. Ricky Valenzuela WBC 11.2 103/ul Critically high 4.0-11.0 [facility] Comment on above: Performed By: #### C BC #### [facility] [place] [facility] [id number] Ricky Valenzuela GLYCOHEMOGLOBIN A1Con 2021 ADA RECOMMENDATION SEE BELOW Normal [facility] Comment on above: Result Comment: ADA RECOMMENDED LIMIT 4.0 - 6.0 ADA THERAPEUTIC TARGET < 7.0 ACTION SUGGESTED > 7.0 Performed By: #### A 1C ####[facility] [place] [address] [place] [id number]. Ricky Valenzuela Glucose [Mass/Vol] 183 mg/dL Normal [facility] Comment on above: Performed By: #### A 1C ####[facility] [place] [address] [place] [address]Dr. Ricky Valenzuela HbA1c (Bld) [Mass fraction] 8.0 % Critically high 4.5-6.2 [facility] Comment on above: Performed By: #### A 1C ####[facility] [place] [address] [place] [id number]. Ricky Valenzuela LIPID PROFILEon 08-09-2021 CHOL-HDL RATIO NORM SEE BELOW Normal [facility] Comment on above: Result Comment: 3.3 - 4.4 LOW RISK 4.4 - 7.1 AVERAGE RISK 7.1 - 11.0 MODERATE RISK >11.0 HIGH RISK Performed By: #### C MP, LIPID #### [facility] [place] [facility] [address] [address] [address] Ricky Valenzuela Cholesterol [Mass/Vol] 239 mg/dL Critically high <=200 [facility] Comment on above: Performed By: #### C MP, LIPID #### [facility] [place] [facility] [address] [address] [address] Ricky Valenzuela Cholesterol in HDL [Mass/Vol] 36 mg/dL Critically low 40-60 [facility] Comment on above: Performed By: #### C MP, LIPID #### [facility] [place] [facility] [address] [address] [address] Ricky Valenzuela Cholesterol in LDL [Mass/Vol] 164.2 mg/dL Normal [facility] Comment on above: Performed By: #### C MP, LIPID #### [facility] [place] [facility] [address] [address] [address] Ricky Valenzuela Cholesterol.total/Cho lesterol in HDL [Mass ratio] 6.6 {ratio} Normal [facility] Comment on above: Performed By: #### C MP, LIPID #### [facility] [place] [facility] [address] [place] [address] Dr. Ricky Valenzuela HDL NORMAL > or = 60 mg/dl - LO W CARDIOVASCULAR RISK <40 mg/dl - HIGH CARDIOVASCULAR RISK Normal [facility] Comment on above: Performed By: #### C MP, LIPID #### [facility] [place] [facility] [address] [address] [address] Ricky Valenzuela LDL CALC NORMAL SEE BELOW Normal [facility] Comment on above: Result Comment: <100 mg/dl OPTIMAL 100 - 129 mg/dl NEAR OR ABOVE OPTIMAL 130 - 159 mg/dl BORDERLINE HIGH 160 - 189 mg/dl HIGH >190 mg/dl VERY HIGH Performed By: #### C MP, LIPID #### [facility] [place] [facility] [address] [address] [address] Ricky Valenzuela Triglyceride [Mass/Vol] 194 mg/dL Critically high <=150 [facility] [place] Comment on above: Performed By: #### C MP, LIPID #### [facility] [place] [facility] [address] [address] [address] Ricky Valenzuela VLDL CALC 38.8 mg/dL Normal [facility] Comment on above: Performed By: #### C MP, LIPID #### [facility] [place] [facility] [address] [address] [address] Ricky Valenzuela MICROALBUMIN, RAND URon 07-13 mALB 13.1 mg/L Normal <=30.0 [facility] Comment on above: Performed By: #### M ALBR ####[facility] [place] [address] [place], [place] [address]Dr. Ricky Valenzuela PROF 14(COMP METB)on 022 Albumin [Mass/Vol] 3.3 g/dL Critically low 3.4-5.0 [facility] Comment on above: Performed By: #### C MP, LIPID #### [facility] [place] [facility] [address] [address] [address] Ricky Valenzuela Albumin/Globulin [Mass ratio] 0.8 {ratio} Normal [facility] Comment on above: Performed By: #### C MP, LIPID #### [facility] [place] [facility] [address] [place] [address] Dr. Ricky Valenzuela ALP [Catalytic activity/Vol] 93 U/L Normal 46-116 [facility] Comment on above: Performed By: #### C MP, LIPID #### [facility] [place] [facility] [address] [place] [address] Dr. Ricky Valenzuela ALT [Catalytic activity/Vol] 37 U/L Normal 14-59 [facility] Comment on above: Performed By: #### C MP, LIPID #### [facility] [place] [facility] [address] [place] [address] Dr. Ricky Valenzuela Anion gap [Moles/Vol] 10.9 mmol/L Normal Th [facility] Comment on above: Performed By: #### C MP, LIPID #### [facility] [place] [facility] [address] [place] [address] Dr. Ricky Valenzuela AST [Catalytic activity/Vol] 10 U/L Critically low 15-37 [facility] Comment on above: Performed By: #### C MP, LIPID #### [facility] [place] [facility] [address] [place] [address] Dr. Ricky Valenzuela Bilirubin [Mass/Vol] 0.2 mg/dL Normal 0.2-1.0 [facility] Comment on above: Performed By: #### C MP, LIPID #### [facility] [place] [facility] [address] [place] [address] Dr. Ricky Valenzuela Calcium [Mass/Vol] 9.0 mg/dL Normal 8.5-10.1 [facility] Comment on above: Performed By: #### C MP, LIPID #### [facility] [place] [facility] [address] [place] [address] Dr. Ricky Valenzuela Chloride [Moles/Vol] 100 mmol/L Normal 98-107 [facility] Comment on above: Performed By: #### C MP, LIPID #### [facility] [place] [facility] [address] [place] [address] Dr. Ricky Valenzuela CO2 [Moles/Vol] 32.2 mmol/L Critically high 21.0-32.0 [facility] Comment on above: Performed By: #### C MP, LIPID #### [facility] [address] [place] [address] Dr. Ricky Valenzuela Creatinine [Mass/Vol] 0.95 mg/dL Normal 0.55-1.02 [facility] Comment on above: Performed By: #### C MP, LIPID #### [facility] [address] [place] [address] Dr. Ricky Valenzuela EGFR-AF GERMAN >60 Normal >=60 [facility] Comment on above: Performed By: #### C MP, LIPID #### [facility] [address] [place] [address] Dr. Ricky Valenzuela EGFR-NON AF GERMAN >60 Normal >=60 [facility] Comment on above: Performed By: #### C MP, LIPID #### [facility] [address] [place] [address] Dr. Ricky Valenzuela Globulin (S) [Mass/Vol] 4.2 g/dL Normal [facility] Comment on above: Performed By: #### C MP, LIPID #### [facility] [address] [place] [address] Dr. Ricky Valenzuela Glucose [Mass/Vol] 200 mg/dL Critically high 74-106 [facility] Comment on above: Performed By: #### C MP, LIPID #### [facility] [address] [address] [address] Ricky Valenzuela Potassium [Moles/Vol] 4.1 mmol/L Normal 3.5-5.1 [facility] Comment on above: Performed By: #### C MP, LIPID #### [facility] [address] [place] [address] Dr. Ricky Valenzuela Protein [Mass/Vol] 7.5 g/dL Normal 6.4-8.2 [facility] Comment on above: Performed By: #### C MP, LIPID #### [facility] [address] [place] [address] Dr. Ricky Valenzuela Sodium [Moles/Vol] 139 mmol/L Normal 136-145 [facility] Comment on above: Performed By: #### C MP, LIPID #### [facility] [address] [place] [address] Dr. Ricky Valenzuela Urea nitrogen [Mass/Vol] 13.0 mg/dL Normal 7.0-18.0 [facility] Comment on above: Performed By: #### C MP, LIPID #### [facility] [address] [place] [address] Dr. Ricky Valenzuela Urea nitrogen/Creatinine [Mass ratio] 13.7 mg/mg Normal [facility] Comment on above: Performed By: #### C MP, LIPID #### [facility] [address] [place] [address] Dr. Ricky Valenzuela POINT OF CARE GLUCOSEon 06-12 Glucose [Mass/Vol] 176 mg/dL Critically high 74-106 [facility] Comment on above: Performed By: #### P OCGLUC #### [facility] [address] [place] [address] Dr. Ricky Valenzuela Vital Signs Date Time Vital Sign Value Performing Clinician Facility 01-18-2023 09:[id number] Body height 156.21 cm Elle Hendricks Other [facility] Other 01-18-2023 09:10-0500 Body mass index (BMI) [Ratio] 42.82 kg/m2 Elle Hendricks Other [facility] Other 01-18-2023 09:10-0500 Body temperature 98.2 [degF] Elle Hendricks Other [facility] Other 01-18-2023 09:10-0500 Body weight 104.51 kg Elle Ruthie Other [facility] Other 01-18-2023 09:10-0500 Diastolic blood pressure 92 mm[Hg] Elle Ruthie Other [facility] Other 01-18-2023 09:10-0500 Respiratory rate 18 /min Elle Dejesusmond Other [facility] Other 01-18-2023 09:10-0500 SaO2% (BldA) [Mass fraction] 97 % Elle Ruthie Other [facility] Other 01-18-2023 09:10-0500 Systolic blood pressure 145 mm[Hg] Elle Ruthie Other [facility] Other Encounters Encounter Date Encounter Type Care Provider Facility Start: 10-04-2023 ambulatory Facility:[facility] [place] Start: 10-03-2023 End: 10-03-2023 ambulatory SONAM MARRTRICK Not Available Start: 08-22-2023 End: 08-22-2023 ambulatory CRISTINA FAWWAD Not Available Start: 08-05-2023 End: 08-05-2023 ambulatory CRISTINA FAWWAD Not Available Start: 07-04-2023 End: 07-04-2023 ambulatory CRISTINA FAWWAD Not Available Start: 05-02-2023 End: 05-02-2023 ambulatory CRISTINA FAWWAD Not Available Start: 04-30-2023 End: 04-30-2023 ambulatory [facility] Work Phone: Start: 04-30-2023 End: 04-30-2023 Patient encounter procedure [facility] Work Phone: Start: 03-21-2023 Orders Only Shaikh Maricel HOLLIS Work Phone: [facility] Comment on above: Diabetic polyneuropa thy associated with type 2 diabetes mellitus (CMS/HCC) (Primary Dx) Start: 03-19-2023 End: 03-19-2023 ambulatory Ana Luisa Curtis Other [facility] Other Start: 03-19-2023 Office outpatient vi sit 15 minutes Ana Luisa Curtis [facility] Start: 02-25-2023 End: 02-25-2023 ambulatory ELIDA GARCIA Not Available Start: 01-29-2023 End: 01-29-2023 ambulatory CRISTINA FASHIRLEYLevon Not Available Start: 01-23-2023 End: 01-23-2023 ambulatory Ana Luisa Curtis Other [facility] Other Start: 01-23-2023 Office outpatient vi sit 15 minutes Ana Luisa Curtis [facility] Start: 01-18-2023 End: 01-18-2023 ambulatory Elle Hendricks Other [facility] Other Start: 01-18-2023 Office outpatient vi sit 15 minutes Elle Hendricks [facility] Start: 09-19-2022 End: 09-19-2022 ambulatory Ana Luisa Curtis Other [facility] Other Start: 09-19-2022 Telephone encounter Ana Luisa Curtis [facility] Start: 07-12-[address] JONATHAN Seayi ty:H1 Start: 06-07-2022 End: 06-08-[address] JONATHAN EDWARDS Facility:[facility]1 Start: 05-02-2022 End: 05-02-2022 ambulatory Ana Luisa Curtis Other [facility] Other Start: 05-02-2022 Office outpatient ne w 30 minutes Ana Luisa Curtis [facility] Start: 04-12-2022 End: 04-13-[address] JONATHAN EDWARDS Facility:[facility]1 Start: 03-08-2022 End: 03-09-[address] JONATHAN EDWARDS Facility:[facility]1 Start: 02-16-2022 End: 02-17-[address] JONATHAN EDWARDS Facility:[facility]1 Start: 02-09-2022 End: 02-10-[address] RICARDO HOLM . Facility:[facility]1 Start: 11-16-2021 End: 11-17-[address] JONATHAN EDWARDS Facility:[facility]1 Start: 11-01-2021 End: 11-02-2021 ambulatory CRYS PIERCE . Facility:[facility]1 Start: 08-30-2021 End: 08-31-2021 ambulatory NIKKIE BARCLAY [facility] Start: 08-30-2021 End: 08-30-2021 Subsequent hospital visit by physician Sr Edwards DO Work Phone: [facility] Comment on above: Routine cervical sme ar Start: 08-16-2021 Encounter for genera l adult medical examination without abnormal findings DR RICARDO HOLM . [facility] Start: 08-09-2021 End: 08-10-2021 Encounter for general [...] Screening for malign ant neoplasm of colon [facility] Start: 08-30-2024 Screening for malign ant neoplasm of cervix [facility] Start: 03-20-2024 Screening for malign ant neoplasm of breast Mammogram [facility] Start: 02-27-2024 End: 02-27-2024 Patient encounter procedure 02/27/2024 11:35 AM EST Office Visit [facility] [address] [place] [address] Elida Garcia MD [address] [place] [address] [facility] Start: 02-12-2024 Glaucoma screening Diabetes: R etinopathy Screening [facility] Start: 08-11-2023 Influenza vaccination Influenza Vacc ine (#1) [facility] Comment on above: Postponed from 10/12 (Patient Refused) Start: 05-02-2023 End: 05-02-2023 Patient encounter procedure 05/02/2023 2:00 PM EDT Office Visit [facility] [address] [place] [address] Shaikh Connelly MD [address] [place] [address] [facility] Start: 02-17-2023 Hemoglobin A1c measurement Diabetes: Hemoglobin A1C [facility] Start: 09-04-2022 End: 09-04-2022 Patient encounter procedure 09/04/2022 Office Visit Obstetrics and Gynecology Nikkie Barclay, 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 - 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 [address] [facility] [address] [place] [address] [facility] Start: 10-12-2021 Influenza vaccination Flu vaccine (# 1) [facility] Start: 10-21-2013 Screening for malign ant neoplasm of breast Breast cancer screen [facility] Start: 10-21-2013 Shingles vaccine (1 of 2) Shingles vaccine (1 of 2) [facility] Start: 10-21-2008 Screening for malign ant neoplasm of colon [facility] Start: 2003 Lipid panel Lipids [facility] Start: 10-21-1998 Diabetes screen Diabetes screen [facility] Start: 10-21-1993 Screening for malign ant neoplasm of cervix [facility] Start: 10-21-1982 DTaP/Tdap/Td vaccine (1 - Tdap) DTaP/Tdap/Td vaccine (1 - Tdap) [facility] Start: 10-21-1982 Urine screening for protein Diabetes: Urine Protein Screening [facility] Start: 10-21-1981 Hepatitis C screening Hepatitis C sc reen [facility] Start: 10-21-1978 HIV screening HIV screen [facility] Start: 1975 Depression Screen Depression Screen [facility] Start: 04-20-1964 COVID-19 Vaccine (#1) COVID-19 Vacci ne (#1) [facility] Start: 1963 Screening for malign ant neoplasm of colon [facility] End: 08-30-2021 Cytopathology procedure, preparation of smear, genital source [facility] Routine Routine cervical smear 1 Occurrences starting 08/30/2021 until 08/30/2021 [facility] Work Phone: Comment on above: 1 Occurrences starti ng 08/30/2021 until 08/30/2021 Immunizations Immunization Date Immunization Notes Care Provider Tima garcia 01-14-2017 influenza, injectabl e, quadrivalent, preservative free [facility] Payers Date Payer Category Payer Unknown [employer] [id number] 2022-Present [phone] [address] [address] [place] [address] [id number] 2012 Medicare MEDICARE MEDICAR E PART B [id number] 2012-[place] [address] Medicare [id number]. [id number] 1963 Unknown [id number] 2.16.840.1.234482.3.579.2.17 3 1963 Unknown [id number] 2.16.840.1.297938.3.579.2.59 3 1963 Unknown [id number] 2.16.840.1.914508.3.579.2.59 3 1963 Unknown [id number] 2.16.840.1.365477.3.579.2.59 3 1963 Unknown [id number] 2.16.840.1.192511.3.579.2.59 3 1963 Unknown [id number] 2.16.840.1.441403.3.579.2.59 3 1963 Unknown [id number] 2.16.840.1.486645.3.579.2.59 3 1963 Unknown [id number] 2.16.840.1.823645.3.579.2.59 3 1963 Unknown [id number] 2.16.840.1.398369.3.579.2.59 3 1963 Unknown [id number] 2.16.840.1.739429.3.579.2.59 3 1963 Unknown [id number] 2.16.840.1.940755.3.579.2.59 3 1963 Unknown [id number] 2.16.840.1.205567.3.579.2.59 3 1963 Unknown [id number] 2.16.840.1.063472.3.579.2.59 3 1963 Unknown [id number] 2.16.840.1.558583.3.579.2.59 3 1963 Unknown [id number] 2.16.840.1.578960.3.579.2.59 3 1963 Unknown [id number] 2.16.840.1.205798.3.579.2.59 3 1963 Unknown [id number] 2.16.840.1.103484.3.579.2.59 3 1963 Unknown [id number] 2.16.840.1.654720.3.579.2.12 59 1963 Unknown [id number] 2.16.840.1.529665.3.579.2.12 59 1963 Unknown [id number] 2.16.840.1.642237.3.579.2.12 59 1963 Unknown [id number] 2.16.840.1.391726.3.579.2.12 59 1963 Unknown [id number] 2.16.840.1.534215.3.579.2.12 59 1963 Unknown [id number] 2.16.840.1.101371.3.579.2.12 59 1963 Unknown [id number] 2.16.840.1.050750.3.579.2.12 59 1959 Medicare [id number] 1.2.840.916963.1.13.239.2.7. 3.664582.315 1959 Unknown [id number] 1.2.840.584606.1.13.239.2.7. 3.185524.315 1959 Unknown [id number] 2.16.840.1.293852.19 Medicare Medicare [id number] Self-pay Self Pay [id number] Social History Date Type Detail Facility Start: 08-30-2021 Tobacco smoking stat us PAIS Smokes tobacco daily [facility] Phone: History of tobacco use Cigarette Smoker B [facility] [employer] Phone: Start: 08-30-2021 End: 01-29-2023 Tobacco use and exposure Smokeless tobacco non-user [facility] Phone: Start: 08-30-2021 Alcohol intake Current drinke r of alcohol (finding) [facility] Phone: Start: 08-30-2021 History SDOH Alcohol Comment occasional [facility] Phone: Start: 1965 Sex Assigned At Not on file B [facility] [employer] Phone: Start: 08-20-2021 End: 08-30-2021 Exposure to SARS-CoV-2 (event) Not sure [facility] Start: 02-25-2023 Sex Assigned At N [employer] Other Start: 01-23-2023 End: 01-29-2023 Tobacco smoking status [facility] Ex-smoker [facility] History of tobacco use Current smoker [facility] Start: 01-29-2023 End: 02-25-2023 Cigarettes smoked current (pack per day) - Reported 0.5 [facility] Start: 02-25-2023 Alcohol intake Lifetime non-d gus (finding) [facility] Start: 1965 Sex Assigned At Female F [facility] Medical Equipment Procedure Code Equipment Code Equipment Origin al Text Equipment Identifier Dates USE TO TEST BLOO D SUGAR TWICE DAILY [id number] Start: 06-08-2021 Clinical Notes 06-20-2021 to 03-19-2023 [...] Mar, Left hand pain (ICD-10 - M79.642) [facility] Other 12-13-2023 Evaluation note* Encounter Date Diagnosis [...] noted. Patient will f/u in 4 weeks. [facility] Other 12-08-2023 Evaluation note* Encounter Date Diagnosis [...] left hand x-ray that was performed at [facility] which revealed degenerative changes in the hand as well as a remote avulsion fracture of the thumb. Patient states her family doctor is treating her for gout in her hand. Jan, History of gout (ICD-10 - Z87.39) Jan, Other Gout material w as printed [facility] Other 08-09-2023 Evaluation note* Encounter Date Diagnosis Assessment Notes Treatment Notes Treatment Clinical Notes Sep, Right wrist pain (ICD-10 - M25.531) [facility] Other 04-27-2023 NoteCONSULTATION CONSULTATION DATE: 06/07/2022 TO: [...] our patients to inform us about any cnjw-you-aymdtlp medications or herbal remedies/nutritional supplements/alternative remedies. 2. [...] treatment options with their primary care provider.[id number] Evaluation note * Encounter Date Diagnosis Assessment [...] understanding and is agreeable to treatment plan. [facility] Other 01-26-2023 NoteCONSULTATION PROCEDURE DATE: 03/08/2022 PREOPERATIVE [...] will be followed up in the clinic.[facility] [id number] NotePROCEDURE: XR KNEE LT 4V or > [...] Electronically authenticated by: PATTIE SALTER Date: 2022-02-16 11:29[facility]12-30-2022 NoteCONSULTATION CONSULTATION DATE: 02/09/2022 HISTORY OF [...] office today. Patient agrees with this plan.[facility] [id number] NotePROCEDURE: XR WRIST RT MIN 3 V COMPARISON: None. HISTORY: Injury of right wrist FINDINGS: BONES:No acute fracture or dislocation. Corticated bone fragment identified along the first carpometacarpal joint [degenerative in nature SOFT TISSUES:Moderate diffuse soft tissue swelling EFFUSION:None visible. OTHER: Negative. IMPRESSION: Soft tissue swelling, no acute fracture Electronically authenticated by: RYAN GOLDMAN Date: 2021-11-16 18:59[facility] [id number] NoteCONSULTATION CONSULTATION DATE: 11/01/2021 HISTORY OF PRESENT [...] otherwise indicated. Patient agrees with this plan.[facility] [id number] NoteCONSULTATION PROCEDURE DATE: 11/01/2021 PRE AND POSTOPERATIVE [...] will be followed up in the clinic.[facility] [id number] NoteCONSULTATION PROCEDURE DATE: 08/09/2021 PREOPERATIVE DIAGNOSIS: Bilateral [...] will be followed up in the clinic. [facility] Signed and Approved by: CRYS PIERCE . 08/10/2021 13:37:00[facility] [id number] NoteCONSULTATION CONSULTATION DATE: 07/19/2021 HISTORY OF PRESENT [...] injections. Patient acknowledges and all questions answered. [facility] Signed and Approved by: CRYS PIERCE . 07/20/2021 10:33:00[facility]05-25-2022 NotePROCEDURE: XR FOOT RT MIN 3 [...] Electronically authenticated by: PATTIE SALTER Date: 2021-07-05 11:11[facility]05-10-2022 NoteCONSULTATION CONSULTATION DATE: 06/20/2021 CHIEF COMPLAINT: [...] like to proceed. CC: Jonathan Edwards M.D. [facility] Signed and Approved by: DR RICARDO HOLM . 06/27/2021 10:40:00[facility] Diagnosis Routine cervical smear Screening for malignant neoplasm of the cervix documented in this encounter [facility] Work Phone: evaluation note* Diagnosis Diabetic polyneuropathy associated with type 2 diabetes mellitus ([facility])- Primary documented in this encounter [facility] HealthcareEvaluation noteNo assessment information availableCrystal [facility] [...] History tubal ligation Hospitalization History see above [facility] Other Summary Purpose Family History No Family [...] Care Teams (unrecognized sec tion and content) [employer] Relationship Specialty Start Date End Date Sr Jonathan Edwards DO [address] [place] [address] PCP - General Family Medicine 08/30/21 [employer] Relationship Specialty Start Date End Date Shaikh [...] CREATED AUTHOR AUTHOR'S ORGANIZ ATION 06/08/2022 [facility] DATE CREATED AUTHOR AUTHOR'S ORGANIZ ATION 10/05/2023 [facility] EPIC DATE CREATED AUTHOR AUTHOR'S ORGANIZ ATION 10/06/2023 [facility] REASON FOR VISIT (unrecogniz ed section and [...] BE BASED ON THE PRIMARY CLINICAL RECORDS. [employer] [facility]. provides no warranty or guarantee of the accuracy or completeness of information in this document.
[2023-10-29 07:51] VITALS: BP 131/82; PULSE 108; TEMP 36.7; O2SAT 96
[2023-10-29 08:03] LABS: Glucometer 87 mg/dL (74-106)
[2023-10-29 08:25] VITALS: BP 142/86; BP 150/93; PULSE 100; PULSE 95; O2SAT 92; O2SAT 97
[2023-10-29] MEDS: BUPIVACAINE HCL 0.25% PF 25 MG/10 ML VIAL INJ (08:31)
--- NOTE | 2023-10-29 09:01 | P.ON_ITS ---
Date of procedure: 10/29/23 Pre-op diagnosis: Lumbar spondylosis Post-op diagnosis: same as pre-op Procedure: Bilateral Lumbar 4/5, 5/sacral 1 medial branch block Preop diagnosis includes pain secondary to spondylosis, Postop diagnosis same Under fluoroscopic guidance Solution injected: 2milliliters Marcaine 0.25% Anesthesia :none Immediate complications none Time out process compliant After informed consent obtained from the patient placed in the [employer] proposition . area was prepped and draped in a sterile fashion using betadine .25 gauge spinal needle inserted over each of the above mentioned target areas . [place] were directed towards the target under fluoroscopic guidance . after encountering each of the targets , no indication of intravascular intraneuronal or intrathecal needle tip placement. Then 0 .5 to 1 Milliliter was injected at each level. [place] removed postoperatively. patient transferred to recovery in stable condition to be discharged home after meeting criteria Anesthesia: Local Surgeon: Kenyon Bradford Condition: stable
== END 2023-10-29 08:33 | disposition home or self-care (01) ==
LOC: SURGOUT 07:40
PROVIDERS: PCP Internal Medicine; Visit Provider Anesthesiology Pain Medicine
DX: M47.816 Spondylosis without myelopathy or radiculopathy, lumbar region (principal)
CPT/HCPCS: 36415; 64493; 64494; 82948; J0665

== ENCOUNTER 2023-10-31 09:16 | Outpatient (OUT) | payer OTHER, MEDICARE, SELFPAY ==
--- OUTSIDE RECORDS SUMMARY | 2023-10-31 09:35 | XMS_ITS | CCD ---
Author Organization [facility] Care Team Providers Care Dye Box Operator Name Role Phone House DO, Sr Jonathan Klein Primary Care Provider NIKIKE BARCLAY Referring Unavailabl e HOUSE, SR JONATHAN [...] Unavailable HOUSE, DR BASURTO Primary Care Unavailable OHLM ., DR RICARDO Belcher Attending Unavailable PIERCE [...] Nieves Consulting Unavailable SUSSY JONES Consulting Unavailable BAYARD, DR BASURTO Attending Unavailable BAYARD, DR BASURTO Primary Care Unavailable BAYARD, DR BASURTO Admitting Unavailable BAYARD, DR BASURTO Consulting Unavailable BAYARD, DR BASURTO Primary Care Unavailable GAETANO, DR PATTIE Nieves Consulting Unavailable LAKSHMIPATHY ., NARENDRONALDATH Admitting Nellie vailable LAKSHMIPATHY ., DEMETRIUSATH Attending Nellie vailable LAKSHMIPATHY ., BILLY Consulting Nellie vailable HOUSE, DR BASURTO Admitting Unavailable BAYARD, DR BASURTO Attending Unavailable BAYARD, DR BASURTO Primary Care Unavailable [place], DR RYAN Guzman Consulting Unavailable BAYARD, DR JONATHAN Trimble Unavailable HOLM ., DR [...] Consulting Unavailable PIERCE ., CRYS Trimble Unavailable BAYARD, DR BASURTO Primary Care Unavailable HOLM ., DR RICARDO Belcher Admitting Unavailable HOLM ., DR RICARDO Belcher Attending Unavailable LAKSHMIPATHY ., BILLY Consulting Nellie vailable BAYARD, DR BASURTO Primary Care Unavailable HOLM ., [...] day Active take 1 capsule by mo [facility] twice daily pregabalin (LYRICA) 50 MG [...] 12, 2017 1:00am January 15, 2017 2:23pm Khfsybukpqna-Wv-Ndl n-Minerals (Multiple Vitamin, Womens) Tablet (1 source) Start: 01-12-2017 End: 01-15-2017 Cpofaoxgzfus-Wp-By on-Minerals (Multiple Vitamin, Womens) Tablet Discontinued PO [...] PATTIE SALTER Date: 2022-06-07 11:15 Normal [facility] CBC AUTO DIFFon 04-12-2022 BASO # 0.1 103/ul Normal 0.0-0.1 [facility] Comment on above: Performed By: #### C BC ####[facility] [address] [place] [address]Dr. Ricky Valenzuela Basophils/100 WBC (Bld) 0.5 % Normal 0.2-2.0 [facility] Comment on above: Performed By: #### C BC ####[facility] [address] [place], [place] [address]Dr. Ricky Valenzuela EO # 0.3 103/ul Normal 0.0-0.7 [facility] Comment on above: Performed By: #### C BC ####[facility] [address] [place], [place] [address]Dr. Ricky Valenzuela Eosinophils/100 WBC (Bld) 3.0 % Normal 0.9-7.0 [facility] Comment on above: Performed By: #### C BC ####[facility] [address] [place], [place] [address]Dr. Ricky Valenzuela Erythrocyte distribution width (RBC) [Ratio] 14.8 % Normal 11.0-15.0 [facility] Comment on above: Performed By: #### C BC ####[facility] [address] [place], [place] [address]Dr. Ricky Valenzuela Hematocrit (Bld) [Volume fraction] 40.6 % Normal 36.0-48.0 [facility] Comment on above: Performed By: #### C BC ####[facility] [address] [place], [place] [address]Dr. Ricky Valenzuela Hemoglobin (Bld) [Mass/Vol] 13.5 g/dL Normal 12.0-16.0 [facility] Comment on above: Performed By: #### C BC ####[facility] [address] [place] [id number] Valenzuela IG # 0.16 10e3/ul Critically high 0.00-0.03 [facility] Comment on above: Performed By: #### C BC ####[facility] [address] [place] [id number] Valenzuela IG % 1.4 % Critically high 0.0-0.5 [facility] Comment on above: Performed By: #### C BC ####[facility] [address] [place] [address]DrPasquale Valenzuela LYMPH # 3.4 103/ul Normal 1.2-3.8 [facility] Comment on above: Performed By: #### C BC ####[facility] [address] [place] [address]DrPasquale Valenzuela Lymphocytes/100 WBC (Bld) 30.4 % Normal 20.5-60.0 [facility] Comment on above: Performed By: #### C BC ####[facility] [address] [place] [address]DrPasquale Valenzuela MANUAL DIFF REQ NO Normal [facility] Comment on above: Performed By: #### C BC ####[facility] [address] [place] [address]DrPasquale Valenzuela MCH (RBC) [Entitic mass] 31.8 pg Normal 26.7-34.0 [facility] Comment on above: Performed By: #### C BC ####[facility] [address] [place] [id number] Valenzuela MCHC (RBC) [Mass/Vol] 33.3 g/dL Normal 29.9-35.2 [facility] Comment on above: Performed By: #### C BC ####[facility] [address] [place] [id number] Valenzuela MCV (RBC) [Entitic vol] 95.5 fL Normal 81.0-99.0 [facility] Comment on above: Performed By: #### C BC ####[facility] [address] [place] [id number]. Ricky Valenzuela MONO # 0.9 103/ul Critically high 0.3-0.8 [facility] Comment on above: Performed By: #### C BC ####[facility] [address] [place] [id number]. Ricky Nicolas Monocytes/100 WBC (Bld) 7.7 % Normal 1.7-12.0 [facility] Comment on above: Performed By: #### C BC ####[facility] [address] [place] [address]Dr. Ricky Valenzuela NEUT # 6.3 103/ul Normal 1.4-6.5 [facility] Comment on above: Performed By: #### C BC ####[facility] [address] [place] [address]Dr. Lesleysharron Valenzuela Neutrophils/100 WBC (Bld) 57.0 % Normal 43.0-75.0 [facility] Comment on above: Performed By: #### C BC ####[facility] [address] [place], [place] [address]Dr. Ricky Valenzuela Platelet mean volume (Bld) [Entitic vol] 9.8 fL Normal 9.5-13.5 [facility] Comment on above: Performed By: #### C BC ####[facility] [address] [place], [place] [id number]. Ricky Valenzuela PLT 246 103/ul Normal 150-450 [facility] Comment on above: Performed By: #### C BC ####[facility] [address] [place], [place] [id number]. Ricky Valenzuela RBC 4.25 106/ul Normal 4.20-5.40 [facility] Comment on above: Performed By: #### C BC ####[facility] [address] [place] [id number]. Ricky Valenzuela WBC 11.1 103/ul Critically high 4.0-11.0 [facility] Comment on above: Performed By: #### C BC ####[facility] [address] [place] [address]Dr. Ricky Valenzuela GLYCOHEMOGLOBIN A1Con 2022 ADA RECOMMENDATION SEE BELOW Normal [facility] Comment on above: Result Comment: ADA RECOMMENDED LIMIT 4.0 - 6.0 ADA THERAPEUTIC TARGET < 7.0 ACTION SUGGESTED > 7.0 Performed By: #### A 1C ####[facility] [address] [place] [address]DrPasquale Valenzuela Glucose [Mass/Vol] 160 mg/dL Normal [facility] Comment on above: Performed By: #### A 1C ####[facility] [address] [place] [address]DrPasquale Valenzuela HbA1c (Bld) [Mass fraction] 7.2 % Critically high 4.5-6.2 [facility] Comment on above: Performed By: #### A 1C ####[facility] [address] [place] [address]DrPasquale Valenzuela MICROALBUMIN, RAND URon - mALB <1.3 Normal <=30.0 [facility] Comment on above: Performed By: #### M ALBR #### [facility] [address] [address] [address] Ricky Valenzuela PROF 14(COMP METB)on 023 Albumin [Mass/Vol] 3.3 g/dL Critically low 3.4-5.0 [facility] Comment on above: Performed By: #### C MP #### [facility] [address] [address] [address] Ricky Valenzuela Albumin/Globulin [Mass ratio] 0.9 {ratio} Normal [facility] Comment on above: Performed By: #### C MP #### [facility] [address] [place] [address] [address] Ricky Valenzuela ALP [Catalytic activity/Vol] 90 U/L Normal 46-116 [facility] Comment on above: Performed By: #### C MP #### [facility] [address] [place] [address] [address] Ricky Valenzuela ALT [Catalytic activity/Vol] 42 U/L Normal 14-59 [facility] Comment on above: Performed By: #### C MP #### [facility] [address] [place] [address] Dr. Ricky Valenzuela Anion gap [Moles/Vol] 10.1 mmol/L Normal Th [facility] Comment on above: Performed By: #### C MP #### [facility] [address] [place] [address] [address] Ricky Valenzuela AST [Catalytic activity/Vol] 21 U/L Normal 15-37 [facility] Comment on above: Performed By: #### C MP #### [facility] [address] [address] [address] Ricky Valenzuela Bilirubin [Mass/Vol] 0.3 mg/dL Normal 0.2-1.0 [facility] Comment on above: Performed By: #### C MP #### [facility] [address] [place] [address] Dr. Ricky Valenzuela Calcium [Mass/Vol] 9.8 mg/dL Normal 8.5-10.1 [facility] Comment on above: Performed By: #### C MP #### [facility] [address] [place] [address] Dr. Ricky Valenzuela Chloride [Moles/Vol] 99 mmol/L Normal 98-107 [facility] Comment on above: Performed By: #### C MP #### [facility] [address] [place] [address] [address] Ricky Valenzuela CO2 [Moles/Vol] 33.7 mmol/L Critically high 21.0-32.0 [facility] Comment on above: Performed By: #### C MP #### [facility] [address] [place] [address] Dr. Ricky Valenzuela Creatinine [Mass/Vol] 0.94 mg/dL Normal 0.55-1.02 [facility] Comment on above: Performed By: #### C MP #### [facility] [address] [place] [address] Dr. Ricky Valenzuela EGFR-AF RUSSIAN >60 Normal >=60 [facility] Comment on above: Performed By: #### C MP #### [facility] [address] [place] [address] [address] Ricky Valenzuela EGFR-NON AF RUSSIAN >60 Normal >=60 [facility] Comment on above: Performed By: #### C MP #### [facility] [address] [address] [address] Ricky Valenzuela Globulin (S) [Mass/Vol] 3.8 g/dL Normal [facility] Comment on above: Performed By: #### C MP #### [facility] [address] [address] [address] Ricky Valenzuela Glucose [Mass/Vol] 168 mg/dL Critically high 74-106 [facility] Comment on above: Performed By: #### C MP #### [facility] [address] [address] [address] Ricky Valenzuela Potassium [Moles/Vol] 4.8 mmol/L Normal 3.5-5.1 [facility] Comment on above: Performed By: #### C MP #### [facility] [address] [address] [address] Ricky Valenzuela Protein [Mass/Vol] 7.1 g/dL Normal 6.4-8.2 [facility] Comment on above: Performed By: #### C MP #### [facility] [address] [address] [address] Ricky Valenzuela Sodium [Moles/Vol] 138 mmol/L Normal 136-145 [facility] Comment on above: Performed By: #### C MP #### [facility] [address] [address] [address] Ricky Valenzuela Urea nitrogen [Mass/Vol] 22.0 mg/dL Critically high 7.0-18.0 [facility] Comment on above: Performed By: #### C MP #### [facility] [address] [address] [address] Ricky Valenzuela Urea nitrogen/Creatinine [Mass ratio] 23.4 mg/mg Normal [facility] Comment on above: Performed By: #### C MP #### [facility] [address] [address] [address] Ricky Valenzuela Cytologyon 08-30-2021 Cytology (NOTE) INTERPRETATION Vaginal material, (ThinPrep vial, Imaging-assisted review): Specimen Adequacy: Satisfactory for evaluation. Descriptive Diagnosis: Negative for intraepithelial lesion or malignancy. Pricing Coordinator: CLARK Delacruz(ASCP) Electronically Signed Out ss/09/07/2021 Source: A: Vaginal material, (ThinPrep vial, Imaging-assisted review) Clinical History Hysterectomy Surgery: Salpingostomy; Ovary removal Z12.4 Encounter for screening for malignant neoplasm of cervix GYNECOLOGIC CYTOLOGY REPORT Patient Name: KARINA DE OLIVEIRA [facility] Rec: [id number] Path Number: [id number] [facility] CONSULTING PATHOLOGISTS [facility] [address] [place] [id number] Normal [facility] Comment on above: Performed By: #### P PPVP #### [address] [id number] Machine Puller And Laster: Luca Cummins MD CBC AUTO DIFFon 08-09-2021 BASO # 0.1 103/ul Normal 0.0-0.1 [facility] Comment on above: Performed By: #### C BC #### [facility] [address] [address] [address] Ricky Valenzuela Basophils/100 WBC (Bld) 0.8 % Normal 0.2-2.0 [facility] Comment on above: Performed By: #### C BC #### [facility] [id number] Ricky Valenzuela EO # 0.2 103/ul Normal 0.0-0.7 [facility] Comment on above: Performed By: #### C BC #### [facility] [address] [address] [address] Ricky Valenzuela Eosinophils/100 WBC (Bld) 2.1 % Normal 0.9-7.0 [facility] Comment on above: Performed By: #### C BC #### [facility] [address] [address] [address] Ricky Valenzuela Erythrocyte distribution width (RBC) [Ratio] 15.2 % Critically high 11.0-15.0 [facility] Comment on above: Performed By: #### C BC #### [facility] [address] [place] [address] Dr. Ricky Valenzuela Hematocrit (Bld) [Volume fraction] 41.5 % Normal 36.0-48.0 [facility] Comment on above: Performed By: #### C BC #### [facility] [address] [place] [address] Dr. Ricky Valenzuela Hemoglobin (Bld) [Mass/Vol] 13.5 g/dL Normal 12.0-16.0 [facility] Comment on above: Performed By: #### C BC #### [facility] [address] [place] [address] Dr. Ricky Valenzuela IG # 0.42 10e3/ul Critically high 0.00-0.03 [facility] Comment on above: Performed By: #### C BC #### [facility] [address] [place] [address] Dr. Ricky Valenzuela IG % 3.8 % Critically high 0.0-0.5 [facility] Comment on above: Performed By: #### C BC #### [facility] [address] [place] [address] Dr. Ricky Valenzuela LYMPH # 3.3 103/ul Normal 1.2-3.8 [facility] Comment on above: Performed By: #### C BC #### [facility] [address] [place] [address] Dr. Ricky Valenzuela Lymphocytes/100 WBC (Bld) 29.1 % Normal 20.5-60.0 [facility] Comment on above: Performed By: #### C BC #### [facility] [address] [place] [address] Dr. Ricky Valenzuela MANUAL DIFF REQ NO Normal [facility] Comment on above: Performed By: #### C BC #### [facility] [address] [place] [address] Dr. Ricky Valenzuela MCH (RBC) [Entitic mass] 32.4 pg Normal 26.7-34.0 [facility] Comment on above: Performed By: #### C BC #### [facility] [address] [place] [address] Dr. Ricky Valenzuela MCHC (RBC) [Mass/Vol] 32.5 g/dL Normal 29.9-35.2 [facility] Comment on above: Performed By: #### C BC #### [facility] [address] [place] [address] Dr. Ricky Valenzuela MCV (RBC) [Entitic vol] 99.5 fL Critically high 81.0-99.0 [facility] Comment on above: Performed By: #### C BC #### [facility] [address] [place] [address] Dr. Ricky Valenzuela MONO # 0.8 103/ul Normal 0.3-0.8 [facility] Comment on above: Performed By: #### C BC #### [facility] [address] [place] [address] Dr. Ricky Valenzuela Monocytes/100 WBC (Bld) 7.5 % Normal 1.7-12.0 [facility] Comment on above: Performed By: #### C BC #### [facility] [address] [place] [address] Dr. Ricky Valenzuela NEUT # 6.3 103/ul Normal 1.4-6.5 [facility] Comment on above: Performed By: #### C BC #### [facility] [address] [place] [address] Dr. Ricky Valenzuela Neutrophils/100 WBC (Bld) 56.7 % Normal 43.0-75.0 [facility] Comment on above: Performed By: #### C BC #### [facility] [address] [place] [address] Dr. Ricky Valenzuela Platelet mean volume (Bld) [Entitic vol] 9.8 fL Normal 9.5-13.5 [facility] Comment on above: Performed By: #### C BC #### [facility] [address] [place], [place] [address] Dr. Ricky Valenzuela PLT 265 103/ul Normal 150-450 [facility] Comment on above: Performed By: #### C BC #### [facility] [address] [place], [place] [address] Dr. Ricky Valenzuela RBC 4.17 106/ul Critically low 4.20-5.40 [facility] Comment on above: Performed By: #### C BC #### [facility] [address] [place], [place] [address] Dr. Ricky Valenzuela WBC 11.2 103/ul Critically high 4.0-11.0 [facility] Comment on above: Performed By: #### C BC #### [facility] [id number] Ricky Valenzuela GLYCOHEMOGLOBIN A1Con 2021 ADA RECOMMENDATION SEE BELOW Normal [facility] Comment on above: Result Comment: ADA RECOMMENDED LIMIT 4.0 - 6.0 ADA THERAPEUTIC TARGET < 7.0 ACTION SUGGESTED > 7.0 Performed By: #### A 1C ####[facility] [address] [place] [id number]. Ricky Valenzuela Glucose [Mass/Vol] 183 mg/dL Normal [facility] Comment on above: Performed By: #### A 1C ####[facility] [address] [place] [id number]. Ricky Valenzuela HbA1c (Bld) [Mass fraction] 8.0 % Critically high 4.5-6.2 [facility] Comment on above: Performed By: #### A 1C ####[facility] [address] [place] [id number]. Ricky Valenzuela LIPID PROFILEon 08-09-2021 CHOL-HDL RATIO NORM SEE BELOW Normal [facility] Comment on above: Result Comment: 3.3 - 4.4 LOW RISK 4.4 - 7.1 AVERAGE RISK 7.1 - 11.0 MODERATE RISK >11.0 HIGH RISK Performed By: #### C MP, LIPID #### [facility] [address] [address] [address] Ricky Valenzuela Cholesterol [Mass/Vol] 239 mg/dL Critically high <=200 [facility] Comment on above: Performed By: #### C MP, LIPID #### [facility] [address] [address] [address] Ricky Valenzuela Cholesterol in HDL [Mass/Vol] 36 mg/dL Critically low 40-60 [facility] Comment on above: Performed By: #### C MP, LIPID #### [facility] [address] [address] [address] Ricky Valenzuela Cholesterol in LDL [Mass/Vol] 164.2 mg/dL Normal [facility] Comment on above: Performed By: #### C MP, LIPID #### [facility] [address] [address] [address] Ricky Valenzuela Cholesterol.total/Cho lesterol in HDL [Mass ratio] 6.6 {ratio} Normal [facility] Comment on above: Performed By: #### C MP, LIPID #### [facility] [address] [place] [address] Dr. Ricky Valenzuela HDL NORMAL > or = 60 mg/dl - LO W CARDIOVASCULAR RISK <40 mg/dl - HIGH CARDIOVASCULAR RISK Normal [facility] Comment on above: Performed By: #### C MP, LIPID #### [facility] [address] [address] [address] Ricky Valenzuela LDL CALC NORMAL SEE BELOW Normal [facility] Comment on above: Result Comment: <100 mg/dl OPTIMAL 100 - 129 mg/dl NEAR OR ABOVE OPTIMAL 130 - 159 mg/dl BORDERLINE HIGH 160 - 189 mg/dl HIGH >190 mg/dl VERY HIGH Performed By: #### C MP, LIPID #### [facility] [address] [address] [address] Ricky Valenzuela Triglyceride [Mass/Vol] 194 mg/dL Critically high <=150 [facility] Comment on above: Performed By: #### C MP, LIPID #### [facility] [address] [address] [address] Ricky Valenzuela VLDL CALC 38.8 mg/dL Normal [facility] Comment on above: Performed By: #### C MP, LIPID #### [facility] [address] [address] [address] Ricky Valenzuela MICROALBUMIN, RAND URon 07-13 mALB 13.1 mg/L Normal <=30.0 [facility] Comment on above: Performed By: #### M ALBR ####[facility] [address] [place], [place] [address]FyDr. Ricky Valenzuela PROF 14(COMP METB)on 022 Albumin [Mass/Vol] 3.3 g/dL Critically low 3.4-5.0 [facility] Comment on above: Performed By: #### C MP, LIPID #### [facility] [address] [address] [address] Ricky Valenzuela Albumin/Globulin [Mass ratio] 0.8 {ratio} Normal [facility] Comment on above: Performed By: #### C MP, LIPID #### [facility] [address] [place] [address] Dr. Ricky Valenzuela ALP [Catalytic activity/Vol] 93 U/L Normal 46-116 [facility] Comment on above: Performed By: #### C MP, LIPID #### [facility] [address] [place] [address] Dr. Ricky Valenzuela ALT [Catalytic activity/Vol] 37 U/L Normal 14-59 [facility] Comment on above: Performed By: #### C MP, LIPID #### [facility] [address] [place] [address] Dr. Ricky Valenzuela Anion gap [Moles/Vol] 10.9 mmol/L Normal Th [facility] Comment on above: Performed By: #### C MP, LIPID #### [facility] [address] [place] [address] Dr. Ricky Valenzuela AST [Catalytic activity/Vol] 10 U/L Critically low 15-37 [facility] Comment on above: Performed By: #### C MP, LIPID #### [facility] [address] [place] [address] Dr. Ricky Valenzuela Bilirubin [Mass/Vol] 0.2 mg/dL Normal 0.2-1.0 [facility] Comment on above: Performed By: #### C MP, LIPID #### [facility] [address] [place] [address] Dr. Ricky Valenzuela Calcium [Mass/Vol] 9.0 mg/dL Normal 8.5-10.1 [facility] Comment on above: Performed By: #### C MP, LIPID #### [facility] [address] [place] [address] Dr. Ricky Valenzuela Chloride [Moles/Vol] 100 mmol/L Normal 98-107 [facility] Comment on above: Performed By: #### C MP, LIPID #### [facility] [address] [place] [address] Dr. Ricky Valenzuela CO2 [Moles/Vol] 32.2 mmol/L Critically high 21.0-32.0 [facility] Comment on above: Performed By: #### C MP, LIPID #### [facility] [address] [place] [address] Dr. Ricky Valenzuela Creatinine [Mass/Vol] 0.95 mg/dL Normal 0.55-1.02 [facility] Comment on above: Performed By: #### C MP, LIPID #### [facility] [address] [place] [address] Dr. Ricky Valenzuela EGFR-AF RUSSIAN >60 Normal >=60 [facility] Comment on above: Performed By: #### C MP, LIPID #### [facility] [address] [place] [address] Dr. Ricky Valenzuela EGFR-NON AF RUSSIAN >60 Normal >=60 [facility] Comment on above: Performed By: #### C MP, LIPID #### [facility] [address] [place] [address] Dr. Ricky Valenzuela Globulin (S) [Mass/Vol] 4.2 g/dL Normal [facility] Comment on above: Performed By: #### C MP, LIPID #### [facility] [address] [place] [address] Dr. Ricky Valenzuela Glucose [Mass/Vol] 200 mg/dL Critically high 74-106 [facility] Comment on above: Performed By: #### C MP, LIPID #### [facility] [address] [address] [address] Ricky Valenzuela Potassium [Moles/Vol] 4.1 mmol/L Normal 3.5-5.1 [facility] Comment on above: Performed By: #### C MP, LIPID #### [facility] [address] [place] [address] Dr. Ricky Valenzuela Protein [Mass/Vol] 7.5 g/dL Normal 6.4-8.2 [facility] Comment on above: Performed By: #### C MP, LIPID #### [facility] [address] [place] [address] Dr. Ricky Valenzuela Sodium [Moles/Vol] 139 mmol/L Normal 136-145 [facility] Comment on above: Performed By: #### C MP, LIPID #### [facility] [address] [place] [address] Dr. Ricky Valenzuela Urea nitrogen [Mass/Vol] 13.0 mg/dL Normal 7.0-18.0 [facility] Comment on above: Performed By: #### C MP, LIPID #### [facility] [address] [place] [address] Dr. Ricky Valenzuela Urea nitrogen/Creatinine [Mass ratio] 13.7 mg/mg Normal [facility] Comment on above: Performed By: #### C MP, LIPID #### [facility] [address] [place] [address] Dr. Ricky Valenzuela POINT OF CARE GLUCOSEon 06-12 Glucose [Mass/Vol] 176 mg/dL Critically high 74-106 [facility] Comment on above: Performed By: #### P OCGLUC #### [facility] [address] [place] [address] Dr. Ricky Valenzuela Vital Signs Date Time Vital Sign Value Performing Clinician Facility 01-18-2023 09:[id number] Body height 156.21 cm Elle Hendricks Other [facility] Other 01-18-2023 09:10-0500 Body mass index (BMI) [Ratio] 42.82 kg/m2 Elle Hendricks Other [facility] Other 01-18-2023 09:10-0500 Body temperature 98.2 [degF] Elle Hendricks Other [facility] Other 01-18-2023 09:10-0500 Body weight 104.51 kg Elle Ruthie Other [facility] Other 01-18-2023 09:10-0500 Diastolic blood pressure 92 mm[Hg] Elle Ruthie Other [facility] Other 01-18-2023 09:10-0500 Respiratory rate 18 /min Elle Dejesusmond Other [facility] Other 01-18-2023 09:10-0500 SaO2% (BldA) [Mass fraction] 97 % Elle Ruthie Other [facility] Other 01-18-2023 09:10-0500 Systolic blood pressure 145 mm[Hg] Elle Ruthie Other [facility] Other Encounters Encounter Date Encounter Type Care Provider Facility Start: 10-04-2023 ambulatory Facility:E Michael Adolphus Start: 10-03-2023 End: 10-03-2023 ambulatory SONAM MARRTRICK Not Available Start: 08-22-2023 End: 08-22-2023 ambulatory CRISTINA FAWWAD Not Available Start: 08-05-2023 End: 08-05-2023 ambulatory CRISTINA FAWWAD Not Available Start: 07-04-2023 End: 07-04-2023 ambulatory CRISTINA FAWWAD Not Available Start: 05-02-2023 End: 05-02-2023 ambulatory CRISTINA FAWWAD Not Available Start: 04-30-2023 End: 04-30-2023 ambulatory [facility] Work Phone: Start: 04-30-2023 End: 04-30-2023 Patient encounter procedure [facility] Work Phone: Start: 03-21-2023 Orders Only Shaikh Maricel HOLLIS Work Phone: [facility] Comment on above: Diabetic polyneuropa thy associated with type 2 diabetes mellitus (CMS/HCC) (Primary Dx) Start: 03-19-2023 End: 03-19-2023 ambulatory Ana Luisa Curtis Other [facility] Other Start: 03-19-2023 Office outpatient vi sit 15 minutes Ana Luisa Curtis [facility] Start: 02-25-2023 End: 02-25-2023 ambulatory ELIDA GARCIA Not Available Start: 01-29-2023 End: 01-29-2023 ambulatory CRISTINA FASHIRLEYLevon Not Available Start: 01-23-2023 End: 01-23-2023 ambulatory Ana Luisa Curtis Other [facility] Other Start: 01-23-2023 Office outpatient vi sit 15 minutes Ana Luisa Curtis [facility] Start: 01-18-2023 End: 01-18-2023 ambulatory Elle Hendricks Other [facility] Other Start: 01-18-2023 Office outpatient vi sit 15 minutes Elle Hendricks [facility] Start: 09-19-2022 End: 09-19-2022 ambulatory Ana Luisa Curtis Other [facility] Other Start: 09-19-2022 Telephone encounter Ana Luisa Curtis F [facility] Start: 07-12-[address] JONATHAN Seayi ty:[facility]1 Start: 06-07-2022 End: 06-08-[address] JONATHAN EDWARDS Facility:[facility] Start: 05-02-2022 End: 05-02-2022 ambulatory Ana Luisa Curtis Other [place] [facility] Other Start: 05-02-2022 Office outpatient ne w 30 minutes Ana Luisa Curtis [facility] Start: 04-12-2022 End: 04-13-[address] JONATHAN EDWARDS Facility:[facility] Start: 03-08-2022 End: 03-09-[address] JONATHAN EDWARDS Facility:[facility] Start: 02-16-2022 End: 02-17-[address] JONATHAN EDWARDS Facility:[facility] Start: 02-09-2022 End: 02-10-[address] RICARDO HOLM . Facility:[facility] Start: 11-16-2021 End: 11-17-[address] JONATHAN EDWARDS Facility:[facility] Start: 11-01-2021 End: 11-02-2021 ambulatory CRYS PIERCE . Facility:[facility] Start: 08-30-2021 End: 08-31-2021 ambulatory NIKKIE BARCLAY [facility] Start: 08-30-2021 End: 08-30-2021 Subsequent hospital visit by physician Sr Edwards DO Work Phone: [facility] Comment on above: Routine cervical sme ar Start: 08-16-2021 Encounter for genera l adult medical examination without abnormal findings DR RICARDO HOLM . [facility] Start: 08-09-2021 End: 08-10-2021 Encounter [...] Screening for malign ant neoplasm of colon [facility] Start: 08-30-2024 Screening for malign ant neoplasm of cervix [facility] Start: 03-20-2024 Screening for malign ant neoplasm of breast Mammogram [facility] Start: 02-27-2024 End: 02-27-2024 Patient encounter procedure 02/27/2024 11:35 AM EST Office Visit [facility] [address] [place] [address] Elida Garcia MD [address] [place] [address] [facility] Start: 02-12-2024 Glaucoma screening Diabetes: R etinopathy Screening [facility] Start: 08-11-2023 Influenza vaccination Influenza Vacc ine (#1) [facility] Comment on above: Postponed from 10/12 (Patient Refused) Start: 05-02-2023 End: 05-02-2023 Patient encounter procedure 05/02/2023 2:00 PM EDT Office Visit [facility] [address] [place] [address] Shaikh Connelly MD [address] [place] [address] [facility] Start: 02-17-2023 Hemoglobin A1c measurement Diabetes: Hemoglobin A1C [facility] Start: 09-04-2022 End: 09-04-2022 Patient encounter procedure 09/04/2022 Office Visit Obstetrics and Gynecology Nikkie Barclay, REVENUE TAX SPECIALIST - CNM [address] [facility] [address] [place] [address] [facility] Start: 10-12-2021 Influenza vaccination Flu vaccine (# 1) [facility] Start: 10-21-2013 Screening for malign ant neoplasm of breast Breast cancer screen [facility] Start: 10-21-2013 Shingles vaccine (1 of 2) Shingles vaccine (1 of 2) [facility] Start: 10-21-2008 Screening for malign ant neoplasm of colon [facility] Start: 2003 Lipid panel [facility] Start: 10-21-1998 Diabetes screen Diabetes screen [facility] Start: 10-21-1993 Screening for malign ant neoplasm of cervix [facility] Start: 10-21-1982 DTaP/Tdap/Td vaccine (1 - Tdap) DTaP/Tdap/Td vaccine (1 - Tdap) [facility] Start: 10-21-1982 Urine screening for protein Diabetes: Urine Protein Screening [facility] Start: 10-21-1981 Hepatitis C screening Hepatitis C sc reen [facility] Start: 10-21-1978 HIV screening HIV screen [facility] Start: 1975 Depression Screen Depression Screen [facility] Start: 04-20-1964 COVID-19 Vaccine (#1) COVID-19 Vacci ne (#1) [facility] Start: 1963 Screening for malign ant neoplasm of colon [facility] End: 08-30-2021 Cytopathology procedure, preparation of smear, genital source [facility] Routine Routine cervical smear 1 Occurrences starting 08/30/2021 until 08/30/2021 [facility] Work Phone: Comment on above: 1 Occurrences starti ng 08/30/2021 until 08/30/2021 Immunizations Immunization Date Immunization Notes Care Provider Tima garcia 01-14-2017 influenza, injectabl e, quadrivalent, preservative free [facility] Payers Date Payer Category Payer Unknown [employer] [id number] 2022-Present [phone] [address] [address] [place] [address] [id number] 2012 Medicare MEDICARE MEDICAR E PART B [id number] 2012-[place] [address] Medicare [id number] 1963 Unknown [id number] 2.16.840.1.887870.3.579.2.17 3 1963 Unknown [id number] 2.16.840.1.391265.3.579.2.59 3 1963 Unknown [id number] 2.16.840.1.335647.3.579.2.59 3 1963 Unknown [id number] 2.16.840.1.629557.3.579.2.59 3 1963 Unknown [id number] 2.16.840.1.931180.3.579.2.59 3 1963 Unknown [id number] 2.16.840.1.096912.3.579.2.59 3 1963 Unknown [id number] 2.16.840.1.215154.3.579.2.59 3 1963 Unknown [id number] 2.16.840.1.105609.3.579.2.59 3 1963 Unknown [id number] 2.16.840.1.431802.3.579.2.59 3 1963 Unknown [id number] 2.16.840.1.158566.3.579.2.59 3 1963 Unknown [id number] 2.16.840.1.224230.3.579.2.59 3 1963 Unknown [id number] 2.16.840.1.877784.3.579.2.59 3 1963 Unknown [id number] 2.16.840.1.755127.3.579.2.59 3 1963 Unknown [id number] 2.16.840.1.794667.3.579.2.59 3 1963 Unknown [id number] 2.16.840.1.586083.3.579.2.59 3 1963 Unknown [id number] 2.16.840.1.285157.3.579.2.59 3 1963 Unknown [id number] 2.16.840.1.263618.3.579.2.59 3 1963 Unknown [id number] 2.16.840.1.376270.3.579.2.12 59 1963 Unknown [id number] 2.16.840.1.859371.3.579.2.12 59 1963 Unknown [id number] 2.16.840.1.645762.3.579.2.12 59 1963 Unknown [id number] 2.16.840.1.162592.3.579.2.12 59 1963 Unknown [id number] 2.16.840.1.007609.3.579.2.12 59 1963 Unknown [id number] 2.16.840.1.322684.3.579.2.12 59 1963 Unknown [id number] 2.16.840.1.835014.3.579.2.12 59 1959 Medicare [id number] 1.2.840.755300.1.13.239.2.7. 3.192441.315 1959 Unknown [id number] 1.2.840.726220.1.13.239.2.7. 3.010128.315 1959 Unknown [id number] 2.16.840.1.808735.19 Medicare Medicare [id number] Self-pay Self Pay [id number] Social History Date Type Detail Facility Start: 08-30-2021 Tobacco smoking stat us WIIS Smokes tobacco daily [employer] Phone: History of tobacco use Cigarette Smoker B ON [employer] Phone: Start: 08-30-2021 End: 01-29-2023 Tobacco use and exposure Smokeless tobacco non-user [employer] Phone: Start: 08-30-2021 Alcohol intake Current drinke r of alcohol (finding) [employer] Phone: Start: 08-30-2021 History SDOH Alcohol Comment occasional [employer] Phone: Start: 1965 Sex Assigned At Not on file B ON [employer] Phone: Start: 08-20-2021 End: 08-30-2021 Exposure to SARS-CoV-2 (event) Not sure [employer] Start: 02-25-2023 Sex Assigned At [facility] Other Start: 01-23-2023 End: 01-29-2023 Tobacco smoking status [facility] Ex-smoker [facility] History of tobacco use Current smoker [facility] Start: 01-29-2023 End: 02-25-2023 Cigarettes smoked current (pack per day) - Reported 0.5 [facility] Start: 02-25-2023 Alcohol intake Lifetime non-d gus (finding) [facility] Start: 1965 Sex Assigned At Female F [facility] Medical Equipment Procedure Code Equipment Code Equipment Origin al Text Equipment Identifier Dates USE TO TEST BLOO D SUGAR TWICE DAILY [id number] Start: 06-08-2021 Clinical Notes 06-20-2021 to 03-19-2023 [...] Mar, Left hand pain (ICD-10 - M79.642) [facility] Other 12-13-2023 Evaluation note* Encounter Date Diagnosis [...] noted. Patient will f/u in 4 weeks. [facility] Other 12-08-2023 Evaluation note* Encounter Date Diagnosis [...] left hand x-ray that was performed at [facility] which revealed degenerative changes in the hand as well as a remote avulsion fracture of the thumb. Patient states her family doctor is treating her for gout in her hand. Jan, History of gout (ICD-10 - Z87.39) Jan, Other Gout material w as printed [facility] Other 08-09-2023 Evaluation note* Encounter Date Diagnosis Assessment Notes Treatment Notes Treatment Clinical Notes Sep, Right wrist pain (ICD-10 - M25.531) [facility] Other 04-27-2023 NoteCONSULTATION CONSULTATION DATE: 06/07/2022 TO: [...] our patients to inform us about any [id number] medications or herbal remedies/nutritional supplements/alternative remedies. 2. [...] treatment options with their primary care provider.[id number] Evaluation note * Encounter Date Diagnosis Assessment [...] understanding and is agreeable to treatment plan. [facility] Other 01-26-2023 NoteCONSULTATION PROCEDURE DATE: 03/08/2022 PREOPERATIVE [...] will be followed up in the clinic.[facility] [id number] NotePROCEDURE: XR KNEE LT 4V or > [...] by: PATTIE SALTER Date: 2022-02-16 11:29[facility]12-30-2022 NoteCONSULTATION CONSULTATION DATE: 02/09/2022 HISTORY [...] office today. Patient agrees with this plan.[facility] [id number] NotePROCEDURE: XR WRIST RT MIN 3 V COMPARISON: None. HISTORY: Injury of right wrist FINDINGS: BONES:No acute fracture or dislocation. Corticated bone fragment identified along the first carpometacarpal joint [degenerative in nature SOFT TISSUES:Moderate diffuse soft tissue swelling EFFUSION:None visible. OTHER: Negative. IMPRESSION: Soft tissue swelling, no acute fracture Electronically authenticated by: RYAN GOLDMAN Date: 2021-11-16 18:59[facility] [id number] NoteCONSULTATION CONSULTATION DATE: 11/01/2021 HISTORY OF PRESENT [...] otherwise indicated. Patient agrees with this plan.[facility] [id number] NoteCONSULTATION PROCEDURE DATE: 11/01/2021 PRE AND POSTOPERATIVE [...] will be followed up in the clinic.[facility] [id number] NoteCONSULTATION PROCEDURE DATE: 08/09/2021 PREOPERATIVE DIAGNOSIS: Bilateral [...] will be followed up in the clinic. [facility] Signed and Approved by: CRYS PIERCE . 08/10/2021 13:37:00[facility] [id number] NoteCONSULTATION CONSULTATION DATE: 07/19/2021 HISTORY OF PRESENT [...] injections. Patient acknowledges and all questions answered. [facility] Signed and Approved by: CRYS PIERCE . 07/20/2021 10:33:00[facility]05-25-2022 NotePROCEDURE: XR FOOT RT MIN [...] by: PATTIE SALTER Date: 2021-07-05 11:11[facility]05-10-2022 NoteCONSULTATION CONSULTATION DATE: 06/20/2021 CHIEF [...] like to proceed. CC: Jonathan Edwards M.D. [facility] Signed and Approved by: DR RICARDO HOLM . 06/27/2021 10:40:00[facility]* Diagnosis Routine cervical smear Screening for malignant neoplasm of the cervix documented in this encounter [facility] Work Phone: evaluation note* Diagnosis Diabetic polyneuropathy associated with type 2 diabetes mellitus ([facility])- Primary documented in this encounter [facility] HealthcareEvaluation noteNo assessment information availableSt. [facility] Work Phone: History general Narrative - Reported* Type Description Date Medical History GERD (gastroesophageal reflux di sease) Medical History Migraine headache Medical History Arthritis Medical History Edema of both legs Medical History Diabetes mellitus, type 2 Medical History Chronic back pain Surgical History ablasion Surgical History back surgery Surgical History hysterectomy Surgical History tubal ligation Hospitalization History see above [facility] Other Summary Purpose Family History No Family [...] Care Teams (unrecognized sec tion and content) 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 [employer] [facility]. provides no warranty or guarantee of the accuracy or completeness of information in this document.
--- NOTE | 2023-10-31 09:45 | PM.CN ---
Consult Note: HPI Data of Consult Patient: known to practice within the last 3 years Consult date: 06/09/23 Requesting Physician: Chela Tijerina NP Primary Care Provider: Shaikh Maricel MD Consult Narrative Reason for consult: low back pain Narrative: Brian Weir a pleasant 57 year old female presents for evaluation and management of chronic low back pain. Patient reporting pain 8/10 in low back and bilateral hips, reports constant throbbing sharp bone rubbing pain. Pain increased with twisting standing walking stairs standing activity sleeping and weather changes, pain improved with massage lying and sitting. Patient has an extensive hx of neck and low back pain. Patient utilizes lyrica 75mg TID, diclofenac 75mg BID, ibuprofen PRN, baclofen 10mg 1-2 tabs HS, and percocet 5-325mg PRN. Recent lumbar MRI as noted below. bilateral L4/L5 S1 MBB#1 >80% improvement immediately following and hours after the procedure. preop pain 2/10 decreasing to 0/10. significant improvement in ability to walk, do housework, and grocery shop. cc:: CC: Chela Tijerina NP Review of Systems ROS Status of ROS 10 or more systems reviewed and unremarkable except as noted in history and below Musculoskeletal Reports: back pain PFSH PFSH Medical History Morbid obesity due to excess calories ?E66.01 - Morbid (severe) obesity due to excess calories (ICD-10) Type 2 diabetes mellitus with hyperglycemia ?E11.65 - Type 2 diabetes mellitus with hyperglycemia (ICD-10) HTN (hypertension) ?I10 - Essential (primary) hypertension (ICD-10) Lumbar spondylosis ?M47.816 - Spondylosis without myelopathy or radiculopathy, lumbar region (ICD-10) Fracture of foot ?S92.909A - Unspecified fracture of unspecified foot, initial encounter for closed fracture (ICD-10) Closed fibular fracture ?S82.409A - Unspecified fracture of shaft of unspecified fibula, initial encounter for closed fracture (ICD-10) Fracture of medial cuneiform of left foot ?S92.242A - Displaced fracture of medial cuneiform of left foot, initial encounter for closed fracture (ICD-10) Fracture of metatarsal of left foot, closed ?S92.302A - Fracture of unspecified metatarsal bone(s), left foot, initial encounter for closed fracture (ICD-10) Dislocation of foot, left, closed ?S93.305A - Unspecified dislocation of left foot, initial encounter (ICD-10) Mild protein-calorie malnutrition ?E44.1 - Mild protein-calorie malnutrition (ICD-10) Acute exacerbation of chronic low back pain ?M54.50 - Low back pain, unspecified (ICD-10) ?G89.29 - Other chronic pain (ICD-10) Migraine headache ?G43.909 - Migraine, unspecified, not intractable, without status migrainosus (ICD-10) Hyperlipidemia ?E78.5 - Hyperlipidemia, unspecified (ICD-10) Iron deficiency anemia ?D50.9 - Iron deficiency anemia, unspecified (ICD-10) Lumbar radiculopathy ?M54.16 - Radiculopathy, lumbar region (ICD-10) Chronic prescription opiate use ?Z79.891 - long term (current) use of opiate analgesic (ICD-10) Sacroiliac joint pain ?M53.3 - Sacrococcygeal disorders, not elsewhere classified (ICD-10) Muscle spasm ?M62.838 - Other muscle spasm (ICD-10) Cervical spondylosis ?M47.812 - Spondylosis without myelopathy or radiculopathy, cervical region (ICD-10) Lumbar stenosis with neurogenic claudication ?M48.062 - Spinal stenosis, lumbar region with neurogenic claudication (ICD-10) Compression fracture of L1 vertebra ?S32.010A - Wedge compression fracture of first lumbar vertebra, initial encounter for closed fracture (ICD-10) Tubal ?O00.109 - Unspecified tubal without intrauterine (ICD-10) TMJ (dislocation of temporomandibular joint) ?S03.00XA - Dislocation of jaw, unspecified side, initial encounter (ICD-10) Upper back pain ?M54.9 - Dorsalgia, unspecified (ICD-10) Back pain ?M54.9 - Dorsalgia, unspecified (ICD-10) Neck pain ?M54.2 - Cervicalgia (ICD-10) Osteoarthritis ?M19.90 - Unspecified osteoarthritis, unspecified site (ICD-10) Obesity ?E66.9 - Obesity, unspecified (ICD-10) Heartburn ?R12 - Heartburn (ICD-10) Acid reflux ?K21.9 - Gastro-esophageal reflux disease without esophagitis (ICD-10) Diabetes ?E11.9 - Type 2 diabetes mellitus without complications (ICD-10) Smoker ?F17.200 - Nicotine dependence, unspecified, uncomplicated (ICD-10) Surgical History S/P lumbar spine operation ?Z98.890 - Other specified postprocedural states (ICD-10) H/O: hysterectomy ?Z90.710 - Acquired absence of both cervix and uterus (ICD-10) Family History Mother Family history of CHF (congestive heart failure) Family history of cancer Family history of diabetes mellitus Family history of hypertension Family history of myocardial infarction Social History Within the past year, how often did you have a drink containing alcohol: monthly or less Smoking status: Light tobacco smoker Non-prescribed substance use: denies use Previous occupational history: retired/disability Highest level of school completed/degree received: high school graduate Are you now , , , , never or living with a partner: In a typical week, how many times do you talk on the telephone with family, friends, or neighbors: 3 or more times per week How often do you get together with friends or relatives: 3 or more times per week How often do you attend oriental orthodox or christianity services: never Little interest or pleasure in doing things: not at all Feeling down, depressed, or hopeless: not at all Feel stressed/tense/nervous/anxious/difficulty sleeping: not at all Do you think of yourself as: straight/heterosexual Gender Identity: female Meds Home Medications and Allergies Home Medications ?Medication ?Instructions ?Recorded ?Confirmed ?Type alendronate 70 mg tablet 70 mg PO QWEEK 07/20/22 10/29/23 History allopurinol 300 mg tablet 300 mg PO DAILY 07/20/22 10/29/23 History aspirin 81 mg tablet,delayed 81 mg PO DAILY 07/20/22 10/29/23 History release (Adult Aspirin Regimen) cholecalciferol (vitamin D3) 25 1,000 unit PO DAILY 07/20/22 10/29/23 History mcg (1,000 unit) capsule diclofenac sodium 75 mg 75 mg PO BID 07/20/22 10/29/23 History tablet,delayed release divalproex 500 mg tablet,delayed 500 mg PO BID 07/20/22 10/29/23 History release (Depakote) glucosamine IVe-[id number]-[id number] 1 tab PO DAILY 07/20/22 10/29/23 History krzysztof 1,500 mg-400 unit-100 mg tablet (Osteo Bi-Flex (5-Loxin)) lactobacillus combo no.13 1 1 cap PO DAILY 07/20/22 10/29/23 History billion cell capsule,delayed release (Probiotic Pearls Complete) multivitamin 1 tab PO DAILY 07/20/22 10/29/23 History oxycodone-acetaminophen 5 mg-325 1 tab PO DAILY PRN pain 07/20/22 10/29/23 History mg tablet prasterone (dhea) 50 mg capsule 50 mg PO DAILY 07/20/22 10/29/23 History (DHEA) famotidine 20 mg tablet 20 mg PO BID 06/08/23 10/29/23 History metformin 1,000 mg tablet 500 mg PO BID 06/08/23 10/29/23 History rizatriptan 10 mg tablet 10 mg PO Q2H PRN migraine headache 06/08/23 10/29/23 History rosuvastatin 20 mg tablet 20 mg PO DAILY 06/08/23 10/29/23 History glimepiride 1 mg tablet 0.5 mg PO QAM 08/17/23 10/29/23 History pregabalin 75 mg capsule 75 mg PO BID 08/17/23 10/29/23 History semaglutide 1 mg/dose (4 mg/3 mL) 1 mg subcut QWEEK 08/17/23 10/29/23 History subcutaneous pen injector (Ozempic) baclofen 20 mg tablet 20 mg PO TID PRN muscle spasm #60 08/18/23 10/29/23 Rx tabs diazepam 10 mg tablet (Valium) 10 mg PO ONCE PRN sedation 09/10/23 10/29/23 History Allergies Allergy/AdvReac Type Severity Reaction Status Date / Time No Known Drug Allergies Allergy Verified 10/29/23 07:54 Exam Constitutional Documenting provider has reviewed patient's vital signs: yes Common normals: no apparent distress, oriented x3, healthy appearing, alert and well nourished General appearance: cooperative Nutritional appearance: obese HENMT Common normals: normocephalic, hearing grossly normal bilaterally and moist oral mucous membranes Head and scalp: normocephalic Eye Common normals: PERRL Pupil: PERRL Neck & C-Spine Common normals: full ROM General: normal visual inspection Cervical spine: pain with cervical ROM Other: trigger point to right occipital area tenderness and pain at bilateral C3/4 4/5 facets predominately axial neck pain without radiculopathy Chest Common normals: inspection of chest normal Respiratory Common normals: normal respiratory effort, no retractions and no use of accessory muscles Back & Pelvis Lumbar spine/lower back: ROM limited, pain with ROM and straight leg raise negative bilaterally Sacroiliac joints: SI joint(s) abnormal (bilateral +paris, FADIR, gaenslens, thigh thrust ) Other: no radiculopathy, sensation intact BLE strength 4/5 in BLE positive facet loading bilaterally Pain from L3-S1 facets Extremity Common normals: normal to inspection and full ROM Neuro Common normals: oriented x3, CN's II-XII intact bilaterally, moves all extremities, no focal motor deficits, no sensory deficits noted and deep tendon reflexes 2+ bilaterally Sensorium/orientation: alert Gait (neuro): antalgic Motor exam: strength 5/5 throughout and no movement abnormalities noted Psych Common normals: mental status grossly normal, thought process normal, cooperative, affect normal, speech normal and activity/motor behavior normal Speech: normal speech Thought process: normal thought process Results Additional Findings Additional findings: If on a controlled substance or opioids, I have checked an [place] report on this patient and there are no aberrancies noted in the prescribing history.??If on a controlled substance or opioid a drug screen was completed and reviewed within the last year, and if there has not been a drug screen completed we ordered one today to monitor higher risk, state monitored pain medication use. As part of providing excellent, safe, comprehensive care, the following was completed at our patient's visit: 1. A medication reconciliation and review to ensure accurate knowledge of current/active medications, including asking our patients to inform us about any [id number] medications or herbal remedies/nutritional supplements/alternative remedies. 2. A review to specifically ensure our patients have had annual screening for screening for depression, screening for tobacco use, and screening for unhealthy alcohol use. For concerning screenings had a discussion with the patient, provided patient education, and recommended follow-up with primary care provider when appropriate. If patient noted with a risk of falling, they received education on strength, gait, and balance training to prevent future risk of falling. Assessment and Plan Assessment and Plan (1) Lumbar stenosis with neurogenic claudication: Assessment and Plan: 80% improvement ongoing (2) Lumbar spondylosis: (3) Lumbar radiculopathy: Assessment and Plan: resolved (4) Chronic prescription opiate use: (5) Muscle spasm: Plan bilateral L4-5 L5-S1 facet medial branch blocks x2 working towards RFA, has failed to respond to greater than 6 weeks HEP/PT and conservative measures such as heat/ice PRN tylenol. lumbar imaging consistent with degenerative changes and facet arthropathy increase baclofen 10mg am and 15mg HS PRN pain continue current medications tolerating well without side effect f/u after each injection
== END 2023-10-31 09:17 | disposition home or self-care (01) ==
LOC: PM 09:16
PROVIDERS: PCP Internal Medicine; Visit Provider Nurse Practitioner
DX: M48.062 Spinal stenosis, lumbar region with neurogenic claudication (principal); M47.816 Spondylosis without myelopathy or radiculopathy, lumbar region; M54.16 Radiculopathy, lumbar region; Z79.891 Long term (current) use of opiate analgesic; M62.838 Other muscle spasm
CPT/HCPCS: G0463

== ENCOUNTER 2023-11-26 08:30 | Day surgery (SDC) | payer OTHER, MEDICARE, SELFPAY ==
--- OUTSIDE RECORDS SUMMARY | 2023-11-26 08:46 | XMS_ITS | CCD ---
Author Organization [facility] Care Team Providers Care Stem Frazer Name Role Phone House DO, Sr Jonathan Klein Primary Care Provider [phone] NIKKIE BARCLAY Referring Unavailabl e HOUSE, SR [...] DR BASURTO Primary Care Unavailable HOUSE, DR JOANTHAN Trimble Unavailable HOLM ., DR RICARDO Belcher [...] Nieves Consulting Unavailable SUSSY JONES Consulting Unavailable VACAVILLE, DR BASURTO Attending Unavailable VACAVILLE, DR BASURTO Primary Care Unavailable VACAVILLE, DR BASURTO Admitting Unavailable VACAVILLE, DR BASURTO Consulting Unavailable VACAVILLE, DR BASURTO Primary Care Unavailable GAETANO, DR PATTIE Nieves Consulting Unavailable LAKSHMIPATHY ., NARENDRONALDATH Admitting Nellie vailable LAKSHMIPATHY ., DEMETRIUSATH Attending Nellie vailable LAKSHMIPATHY ., BILLY Consulting Nellie vailable HOUSE, DR BASURTO Admitting Unavailable VACAVILLE, DR BASURTO Attending Unavailable VACAVILLE, DR BASURTO Primary Care Unavailable LOWELL, DR RYAN Guzman Consulting Unavailable VACAVILLE, DR JONATHAN Trimble Unavailable HOLM ., DR [...] Consulting Unavailable PIERCE ., CRYS Trimble Unavailable VACAVILLE, DR BASURTO Primary Care Unavailable HOLM ., DR RICARDO Belcher Admitting Unavailable HOLM ., DR RICARDO Belcher Attending Unavailable LAKSHMIPATHY ., BILLY Consulting Nellie vailable VACAVILLE, DR BASURTO Primary Care Unavailable HOLM ., DR RICARDO Belcher Admitting Unavailable HOLM ., DR RICARDO Belcher Attending Unavailable PIERCE ., CRYS Consulting Unavailable Elle Hendricks Unavailable Shaikh Connelly MD Primary Care Provider [phone] ELIDA GARCIA Attending Unavailable SHAIKH CONNELLY Attending [...] Active take 1 capsule by mo [facility] twice daily pregabalin (LYRICA) 50 MG [...] 12, 2017 1:00am January 15, 2017 2:23pm Nrnbgsjvarpc-Xu-Tnq n-Minerals (Multiple Vitamin, Womens) Tablet (1 source) Start: 01-12-2017 End: 01-15-2017 Qnpbwnmevweq-Tl-Df on-Minerals (Multiple Vitamin, Womens) Tablet Discontinued PO [...] PATTIE SALTER Date: 2022-06-07 11:15 Normal [facility] CBC AUTO DIFFon 04-12-2022 BASO # 0.1 103/ul Normal 0.0-0.1 [facility] Comment on above: Performed By: #### C BC ####[facility] [address] [place] [address]Dr. Ricky Valenzuela Basophils/100 WBC (Bld) 0.5 % Normal 0.2-2.0 [facility] Comment on above: Performed By: #### C BC ####[facility] [address] [place], [place] [address]Dr. Ricky Valenzuela EO # 0.3 103/ul Normal 0.0-0.7 [facility] Comment on above: Performed By: #### C BC ####[facility] N[address] [place], [place] [address]Dr. Ricky Valenzuela Eosinophils/100 WBC (Bld) 3.0 % Normal 0.9-7.0 [facility] Comment on above: Performed By: #### C BC ####[facility] N[address] [place], [place] [address]Dr. Ricky Valenzuela Erythrocyte distribution width (RBC) [Ratio] 14.8 % Normal 11.0-15.0 [facility] Comment on above: Performed By: #### C BC ####[facility] Xsyfahtt[address] [place], [place] [address]Dr. Ricky Valenzuela Hematocrit (Bld) [Volume fraction] 40.6 % Normal 36.0-48.0 [facility] Comment on above: Performed By: #### C BC ####[facility] [address] [place], [place] [address]Dr. Ricky Valenzuela Hemoglobin (Bld) [Mass/Vol] 13.5 g/dL Normal 12.0-16.0 [facility] Comment on above: Performed By: #### C BC ####[facility] [address] [place] [id number] Valenzuela IG # 0.16 10e3/ul Critically high 0.00-0.03 [facility] Comment on above: Performed By: #### C BC ####[facility] [address]clgs[address] [place] [id number] Valenzuela IG % 1.4 % Critically high 0.0-0.5 [facility] Comment on above: Performed By: #### C BC ####[facility] [address] [place] [address]DrPasquale Valenzuela LYMPH # 3.4 103/ul Normal 1.2-3.8 [facility] Comment on above: Performed By: #### C BC ####[facility] [address] [place] [address]DrPasquale Valenzuela Lymphocytes/100 WBC (Bld) 30.4 % Normal 20.5-60.0 [facility] Comment on above: Performed By: #### C BC ####[facility] [address] [place] [address]DrPasquale Valenzuela MANUAL DIFF REQ NO Normal [facility] Comment on above: Performed By: #### C BC ####[facility] [address] [place] [address]DrPasquale Valenzuela MCH (RBC) [Entitic mass] 31.8 pg Normal 26.7-34.0 [facility] Comment on above: Performed By: #### C BC ####[facility] [address]cavi[address] [place] [id number] Valenzuela MCHC (RBC) [Mass/Vol] 33.3 g/dL Normal 29.9-35.2 [facility] Comment on above: Performed By: #### C BC ####[facility] [address] [place] [phone] Valenzuela MCV (RBC) [Entitic vol] 95.5 fL Normal 81.0-99.0 [facility] Comment on above: Performed By: #### C BC ####[facility] [address]izrefbc[address] [place] [id number]. Ricky Valenzuela MONO # 0.9 103/ul Critically high 0.3-0.8 [facility] Comment on above: Performed By: #### C BC ####[facility] [address]cvblolz[address] [place] [phone]. Ricky Nicolas Monocytes/100 WBC (Bld) 7.7 % Normal 1.7-12.0 [facility] Comment on above: Performed By: #### C BC ####[facility] [address] [address]Dr. Ricky Valenzuela NEUT # 6.3 103/ul Normal 1.4-6.5 [facility] Comment on above: Performed By: #### C BC ####[facility] [address] [place] [address]Dr. Lesleysharron Valenzuela Neutrophils/100 WBC (Bld) 57.0 % Normal 43.0-75.0 [facility] Comment on above: Performed By: #### C BC ####[facility] [address] [place], [place] [address]Dr. Ricky Valenzuela Platelet mean volume (Bld) [Entitic vol] 9.8 fL Normal 9.5-13.5 [facility] Comment on above: Performed By: #### C BC ####[facility] [address] [place], [place] [id number]. Ricky Valenzuela PLT 246 103/ul Normal 150-450 [facility] Comment on above: Performed By: #### C BC ####[facility] [address] [place], [place] [address]Dr. Ricky Valenzuela RBC 4.25 106/ul Normal 4.20-5.40 [facility] Comment on above: Performed By: #### C BC ####[facility] [address] [place] [phone]. Ricky Valenzuela WBC 11.1 103/ul Critically high 4.0-11.0 [facility] Comment on above: Performed By: #### C BC ####[facility] [address] [place] [address]Dr. Ricky Valenzuela GLYCOHEMOGLOBIN A1Con 2022 ADA RECOMMENDATION SEE BELOW Normal [facility] Comment on above: Result Comment: ADA RECOMMENDED LIMIT 4.0 - 6.0 ADA THERAPEUTIC TARGET < 7.0 ACTION SUGGESTED > 7.0 Performed By: #### A 1C ####[facility] [address] [place] [address]DrPasquale Valenzuela Glucose [Mass/Vol] 160 mg/dL Normal [facility] Comment on above: Performed By: #### A 1C ####[facility] [address] [place] [address]DrPasquale Valenzuela HbA1c (Bld) [Mass fraction] 7.2 % Critically high 4.5-6.2 [facility] Comment on above: Performed By: #### A 1C ####[facility] [address] [place] [address]DrPasquale Valenzuela MICROALBUMIN, RAND URon - mALB <1.3 Normal <=30.0 [facility] Comment on above: Performed By: #### M ALBR #### [facility] [address] [address] [address] Ricky Valenzuela PROF 14(COMP METB)on 023 Albumin [Mass/Vol] 3.3 g/dL Critically low 3.4-5.0 [facility] Comment on above: Performed By: #### C MP #### [facility] [address] [address] [address] Ricky Valenzuela Albumin/Globulin [Mass ratio] 0.9 {ratio} Normal [facility] Comment on above: Performed By: #### C MP #### [facility] [address] [address] [address] Ricky Valenzuela ALP [Catalytic activity/Vol] 90 U/L Normal 46-116 [facility] Comment on above: Performed By: #### C MP #### [facility] [address] [address] [address] Ricky Valenzuela ALT [Catalytic activity/Vol] 42 U/L Normal 14-59 [facility] Comment on above: Performed By: #### C MP #### [facility] [address] [place] [address] Dr. Ricky Valenzuela Anion gap [Moles/Vol] 10.1 mmol/L Normal Th [facility] Comment on above: Performed By: #### C MP #### [facility] [address] [address] [address] Ricky Valenzeula AST [Catalytic activity/Vol] 21 U/L Normal 15-37 [facility] Comment on above: Performed By: #### C MP #### [facility] [address] [address] [address] Ricky Valenzuela Bilirubin [Mass/Vol] 0.3 mg/dL Normal 0.2-1.0 [facility] Comment on above: Performed By: #### C MP #### [facility] [address] [place] [address] Dr. Ricky Valenzuela Calcium [Mass/Vol] 9.8 mg/dL Normal 8.5-10.1 [facility] Comment on above: Performed By: #### C MP #### [facility] [address] [place] [address] Dr. Ricky Valenzuela Chloride [Moles/Vol] 99 mmol/L Normal 98-107 [facility] Comment on above: Performed By: #### C MP #### [facility] [address] [address] [address] Ricky Valenzuela CO2 [Moles/Vol] 33.7 mmol/L Critically high 21.0-32.0 [facility] Comment on above: Performed By: #### C MP #### [facility] [address] [place] [address] Dr. Ricky Valenzuela Creatinine [Mass/Vol] 0.94 mg/dL Normal 0.55-1.02 [facility] Comment on above: Performed By: #### C MP #### [facility] [address] [place] [address] Dr. Ricky Valenzuela EGFR-AF ROMANIAN >60 Normal >=60 [facility] Comment on above: Performed By: #### C MP #### [facility] [address] [address] [address] Ricky Valenzuela EGFR-NON AF ROMANIAN >60 Normal >=60 [facility] Comment on above: Performed By: #### C MP #### [facility] [address] [address] [address] Ricky Valenzuela Globulin (S) [Mass/Vol] 3.8 g/dL Normal [facility] Comment on above: Performed By: #### C MP #### [facility] [address] [address] [address] Ricky Valenzuela Glucose [Mass/Vol] 168 mg/dL Critically high 74-106 [facility] Comment on above: Performed By: #### C MP #### [facility] [address] [address] [address] Ricky Valenzuela Potassium [Moles/Vol] 4.8 mmol/L Normal 3.5-5.1 [facility] Comment on above: Performed By: #### C MP #### [facility] [address] [address] [address] Ricky Valenzuela Protein [Mass/Vol] 7.1 g/dL Normal 6.4-8.2 [facility] Comment on above: Performed By: #### C MP #### [facility] [address] [address] [address] Ricky Valenzuela Sodium [Moles/Vol] 138 mmol/L Normal 136-145 [facility] Comment on above: Performed By: #### C MP #### [facility] [address] [address] [address] Ricky Valenzuela Urea nitrogen [Mass/Vol] 22.0 mg/dL Critically high 7.0-18.0 [facility] Comment on above: Performed By: #### C MP #### [facility] [address] [address] [address] Ricky Valenzuela Urea nitrogen/Creatinine [Mass ratio] 23.4 mg/mg Normal [facility] Comment on above: Performed By: #### C MP #### [facility] [address] [address] [address] Ricky Valenzuela Cytologyon 08-30-2021 Cytology (NOTE) INTERPRETATION Vaginal material, (ThinPrep vial, Imaging-assisted review): Specimen Adequacy: Satisfactory for evaluation. Descriptive Diagnosis: Negative for intraepithelial lesion or malignancy. Risk Intern: CLARK Delacruz(ASCP) Electronically Signed Out ss/09/07/2021 Source: A: Vaginal material, (ThinPrep vial, Imaging-assisted review) Clinical History Hysterectomy Surgery: Salpingostomy; Ovary removal Z12.4 Encounter for screening for malignant neoplasm of cervix GYNECOLOGIC CYTOLOGY REPORT Patient Name: KARINA DE OLIVEIRA [facility] Rec: [id number] Path Number: [id number] [facility] CONSULTING PATHOLOGISTS [facility] ANATOMIC PATHOLOGY [address] [place] [phone] Normal [facility] Comment on above: Performed By: #### P PPVP #### [address] [id number] Wire Brush Maker: Luca Cummins MD CBC AUTO DIFFon 08-09-2021 BASO # 0.1 103/ul Normal 0.0-0.1 [facility] Comment on above: Performed By: #### C BC #### [facility] [address] [address] [address] Ricky Valenzuela Basophils/100 WBC (Bld) 0.8 % Normal 0.2-2.0 [facility] Comment on above: Performed By: #### C BC #### [facility] [id number] Ricky Valenzuela EO # 0.2 103/ul Normal 0.0-0.7 [facility] Comment on above: Performed By: #### C BC #### [facility] [address] [address] [address] Ricky Valenzuela Eosinophils/100 WBC (Bld) 2.1 % Normal 0.9-7.0 [facility] Comment on above: Performed By: #### C BC #### [facility] [address] [address] [address] Ricky Valenzuela Erythrocyte distribution width (RBC) [Ratio] 15.2 % Critically high 11.0-15.0 [facility] Comment on above: Performed By: #### C BC #### [facility] [address] [place] [address] Dr. Ricky Valenzuela Hematocrit (Bld) [Volume fraction] 41.5 % Normal 36.0-48.0 [facility] Comment on above: Performed By: #### C BC #### [facility] [address] [place] [address] Dr. Ricky Valenzuela Hemoglobin (Bld) [Mass/Vol] 13.5 g/dL Normal 12.0-16.0 [facility] Comment on above: Performed By: #### C BC #### [facility] [address] [place] [address] Dr. Ricky Valenzuela IG # 0.42 10e3/ul Critically high 0.00-0.03 [facility] Comment on above: Performed By: #### C BC #### [facility] [address] [place] [address] Dr. Ricky Valenzuela IG % 3.8 % Critically high 0.0-0.5 [facility] Comment on above: Performed By: #### C BC #### [facility] [address] [place] [address] Dr. Ricky Valenzuela LYMPH # 3.3 103/ul Normal 1.2-3.8 [facility] Comment on above: Performed By: #### C BC #### [facility] [address] [place] [address] Dr. Ricky Valenzuela Lymphocytes/100 WBC (Bld) 29.1 % Normal 20.5-60.0 [facility] Comment on above: Performed By: #### C BC #### [facility] [address] [place] [address] Dr. Ricky Valenzuela MANUAL DIFF REQ NO Normal [facility] Comment on above: Performed By: #### C BC #### [facility] [address] [place] [address] Dr. Ricky Valenzuela MCH (RBC) [Entitic mass] 32.4 pg Normal 26.7-34.0 [facility] Comment on above: Performed By: #### C BC #### [facility] [address] [place] [address] Dr. Ricky Valenzuela MCHC (RBC) [Mass/Vol] 32.5 g/dL Normal 29.9-35.2 [facility] Comment on above: Performed By: #### C BC #### [facility] [address] [place] [address] Dr. Ricky Valenzuela MCV (RBC) [Entitic vol] 99.5 fL Critically high 81.0-99.0 [facility] Comment on above: Performed By: #### C BC #### [facility] [address] [place] [address] Dr. Ricky Valenzuela MONO # 0.8 103/ul Normal 0.3-0.8 [facility] Comment on above: Performed By: #### C BC #### [facility] [address] [place] [address] Dr. Ricky Valenzuela Monocytes/100 WBC (Bld) 7.5 % Normal 1.7-12.0 [facility] Comment on above: Performed By: #### C BC #### [facility] [address] [place] [address] Dr. Ricky Valenzuela NEUT # 6.3 103/ul Normal 1.4-6.5 [facility] Comment on above: Performed By: #### C BC #### [facility] [address] [place] [address] Dr. Ricky Valenzuela Neutrophils/100 WBC (Bld) 56.7 % Normal 43.0-75.0 [facility] Comment on above: Performed By: #### C BC #### [facility] [address] [place] [address] Dr. Ricky Valenzuela Platelet mean volume (Bld) [Entitic vol] 9.8 fL Normal 9.5-13.5 [facility] Comment on above: Performed By: #### C BC #### [facility] [address] [place], [place] [address] Dr. Ricky Valenzuela PLT 265 103/ul Normal 150-450 [facility] Comment on above: Performed By: #### C BC #### [facility] [address] [place], [place] [address] Dr. Ricky Valenzuela RBC 4.17 106/ul Critically low 4.20-5.40 [facility] Comment on above: Performed By: #### C BC #### [facility] [address] [place], [place] [address] Dr. Ricky Valenzuela WBC 11.2 103/ul Critically high 4.0-11.0 [facility] Comment on above: Performed By: #### C BC #### [facility] [id number] Ricky Valenzuela GLYCOHEMOGLOBIN A1Con 2021 ADA RECOMMENDATION SEE BELOW Normal [facility] Comment on above: Result Comment: ADA RECOMMENDED LIMIT 4.0 - 6.0 ADA THERAPEUTIC TARGET < 7.0 ACTION SUGGESTED > 7.0 Performed By: #### A 1C ####[facility] [address] [place] [id number]. Ricky Valenzuela Glucose [Mass/Vol] 183 mg/dL Normal [facility] Comment on above: Performed By: #### A 1C ####[facility] [address] [place] [id number]. Ricky Valenzuela HbA1c (Bld) [Mass fraction] 8.0 % Critically high 4.5-6.2 [facility] Comment on above: Performed By: #### A 1C ####[facility] [address] [place] [id number]. Ricky Valenzuela LIPID PROFILEon 08-09-2021 CHOL-HDL RATIO NORM SEE BELOW Normal [facility] Comment on above: Result Comment: 3.3 - 4.4 LOW RISK 4.4 - 7.1 AVERAGE RISK 7.1 - 11.0 MODERATE RISK >11.0 HIGH RISK Performed By: #### C MP, LIPID #### [facility] [address] [address] [address] Ricky Valenzuela Cholesterol [Mass/Vol] 239 mg/dL Critically high <=200 [facility] Comment on above: Performed By: #### C MP, LIPID #### [facility] [address] [address] [address] Ricky Valenzuela Cholesterol in HDL [Mass/Vol] 36 mg/dL Critically low 40-60 [facility] Comment on above: Performed By: #### C MP, LIPID #### [facility] [address] [address] [address] Ricky Valenzuela Cholesterol in LDL [Mass/Vol] 164.2 mg/dL Normal [facility] Comment on above: Performed By: #### C MP, LIPID #### [facility] [address] [address] [address] Ricky Valenzuela Cholesterol.total/Cho lesterol in HDL [Mass ratio] 6.6 {ratio} Normal [facility] Comment on above: Performed By: #### C MP, LIPID #### [facility] [address] [place] [address] Dr. Ricky Valenzuela HDL NORMAL > or = 60 mg/dl - LO W CARDIOVASCULAR RISK <40 mg/dl - HIGH CARDIOVASCULAR RISK Normal [facility] Comment on above: Performed By: #### C MP, LIPID #### [facility] [address] [address] [address] Ricky Valenzuela LDL CALC NORMAL SEE BELOW Normal [facility] Comment on above: Result Comment: <100 mg/dl OPTIMAL 100 - 129 mg/dl NEAR OR ABOVE OPTIMAL 130 - 159 mg/dl BORDERLINE HIGH 160 - 189 mg/dl HIGH >190 mg/dl VERY HIGH Performed By: #### C MP, LIPID #### [facility] [address] [address] [address] Ricky Valenzuela Triglyceride [Mass/Vol] 194 mg/dL Critically high <=150 [facility] Comment on above: Performed By: #### C MP, LIPID #### [facility] [address] [address] [address] Ricky Valenzuela VLDL CALC 38.8 mg/dL Normal [facility] Comment on above: Performed By: #### C MP, LIPID #### [facility] [address] [address] [address] Ricky Valenzuela MICROALBUMIN, RAND URon 07-13 mALB 13.1 mg/L Normal <=30.0 [facility] Comment on above: Performed By: #### M ALBR ####[facility] [address] [place], [place] [address]TvDr. Ricky Valenzuela PROF 14(COMP METB)on 022 Albumin [Mass/Vol] 3.3 g/dL Critically low 3.4-5.0 [facility] Comment on above: Performed By: #### C MP, LIPID #### [facility] [address] [address] [address] Ricky Valenzuela Albumin/Globulin [Mass ratio] 0.8 {ratio} Normal [facility] Comment on above: Performed By: #### C MP, LIPID #### [facility] [address] [place] [address] Dr. Ricky Valenzuela ALP [Catalytic activity/Vol] 93 U/L Normal 46-116 [facility] Comment on above: Performed By: #### C MP, LIPID #### [facility] [address] [place] [address] Dr. Ricky Valenzuela ALT [Catalytic activity/Vol] 37 U/L Normal 14-59 [facility] Comment on above: Performed By: #### C MP, LIPID #### [facility] [address] [place] [address] Dr. Ricky Valenzuela Anion gap [Moles/Vol] 10.9 mmol/L Normal Th [facility] Comment on above: Performed By: #### C MP, LIPID #### [facility] [address] [place] [address] Dr. Ricky Valenzuela AST [Catalytic activity/Vol] 10 U/L Critically low 15-37 [facility] Comment on above: Performed By: #### C MP, LIPID #### [facility] [address] [place] [address] Dr. Ricky Valenzuela Bilirubin [Mass/Vol] 0.2 mg/dL Normal 0.2-1.0 [facility] Comment on above: Performed By: #### C MP, LIPID #### [facility] [address] [place] [address] Dr. Ricky Valenzuela Calcium [Mass/Vol] 9.0 mg/dL Normal 8.5-10.1 [facility] Comment on above: Performed By: #### C MP, LIPID #### [facility] [address] [place] [address] Dr. Ricky Valenzuela Chloride [Moles/Vol] 100 mmol/L Normal 98-107 [facility] Comment on above: Performed By: #### C MP, LIPID #### [facility] [address] [place] [address] Dr. Ricky Valenzuela CO2 [Moles/Vol] 32.2 mmol/L Critically high 21.0-32.0 [facility] Comment on above: Performed By: #### C MP, LIPID #### [facility] [address] [place] [address] Dr. Ricky Valenzuela Creatinine [Mass/Vol] 0.95 mg/dL Normal 0.55-1.02 [facility] Comment on above: Performed By: #### C MP, LIPID #### [facility] [address] [place] [address] Dr. Ricky Valenzuela EGFR-AF ROMANIAN >60 Normal >=60 [facility] Comment on above: Performed By: #### C MP, LIPID #### [facility] [address] [place] [address] Dr. Ricky Valenzuela EGFR-NON AF ROMANIAN >60 Normal >=60 [facility] Comment on above: Performed By: #### C MP, LIPID #### [facility] [address] [place] [address] Dr. Ricky Valenzuela Globulin (S) [Mass/Vol] 4.2 g/dL Normal [facility] Comment on above: Performed By: #### C MP, LIPID #### [facility] [address] [place] [address] Dr. Ricky Valenzuela Glucose [Mass/Vol] 200 mg/dL Critically high 74-106 [facility] Comment on above: Performed By: #### C MP, LIPID #### [facility] [address] [address] [address] Ricky Valenzuela Potassium [Moles/Vol] 4.1 mmol/L Normal 3.5-5.1 [facility] Comment on above: Performed By: #### C MP, LIPID #### [facility] [address] [place] [address] Dr. Ricky Valenzuela Protein [Mass/Vol] 7.5 g/dL Normal 6.4-8.2 [facility] Comment on above: Performed By: #### C MP, LIPID #### [facility] [address] [place] [address] Dr. Ricky Valenzuela Sodium [Moles/Vol] 139 mmol/L Normal 136-145 [facility] Comment on above: Performed By: #### C MP, LIPID #### [facility] [address] [place] [address] Dr. Ricky Valenzuela Urea nitrogen [Mass/Vol] 13.0 mg/dL Normal 7.0-18.0 [facility] Comment on above: Performed By: #### C MP, LIPID #### [facility] [address] [place] [address] Dr. Ricky Valenzuela Urea nitrogen/Creatinine [Mass ratio] 13.7 mg/mg Normal [facility] Comment on above: Performed By: #### C MP, LIPID #### [facility] [address] [place] [address] Dr. Ricky Valenzuela POINT OF CARE GLUCOSEon 06-12 Glucose [Mass/Vol] 176 mg/dL Critically high 74-106 [facility] Comment on above: Performed By: #### P OCGLUC #### [facility] [address] [place] [address] Dr. Ricky Valenzuela Vital Signs Date Time Vital Sign Value Performing Clinician Facility 01-18-2023 09:[id number] Body height 156.21 cm Elle Hendricks Other [facility] Other 01-18-2023 09:10-0500 Body mass index (BMI) [Ratio] 42.82 kg/m2 Elle Hendricks Other [facility] Other 01-18-2023 09:10-0500 Body temperature 98.2 [degF] Elle Hendricks Other [facility] Other 01-18-2023 09:10-0500 Body weight 104.51 kg Elle Ruthie Other [facility] Other 01-18-2023 09:10-0500 Diastolic blood pressure 92 mm[Hg] Elle Ruthie Other [facility] Other 01-18-2023 09:10-0500 Respiratory rate 18 /min Elle Dejesusmond Other [facility] Other 01-18-2023 09:10-0500 SaO2% (BldA) [Mass fraction] 97 % Elle Ruthie Other [facility] Other 01-18-2023 09:10-0500 Systolic blood pressure 145 mm[Hg] Elle Ruthie Other [facility] Other Encounters Encounter Date Encounter Type Care Provider Facility Start: 10-04-2023 ambulatory Facility:E Michael Camden Start: 10-03-2023 End: 10-03-2023 ambulatory SONAM MARRTRICK Not Available Start: 08-22-2023 End: 08-22-2023 ambulatory CRISTINA FAWWAD Not Available Start: 08-05-2023 End: 08-05-2023 ambulatory CRISTINA FAWWAD Not Available Start: 07-04-2023 End: 07-04-2023 ambulatory CRISTINA FAWWAD Not Available Start: 05-02-2023 End: 05-02-2023 ambulatory CRISTINA FAWWAD Not Available Start: 04-30-2023 End: 04-30-2023 ambulatory [facility] Work Phone: Start: 04-30-2023 End: 04-30-2023 Patient encounter procedure [facility] Work Phone: Start: 03-21-2023 Orders Only Shaikh Maricel HOLLIS Work Phone: [facility] Comment on above: Diabetic polyneuropa thy associated with type 2 diabetes mellitus (CMS/HCC) (Primary Dx) Start: 03-19-2023 End: 03-19-2023 ambulatory Ana Luisa Curtis Other [facility] Other Start: 03-19-2023 Office outpatient vi sit 15 minutes Ana Luisa Curtis [facility] Start: 02-25-2023 End: 02-25-2023 ambulatory ELIDA GARCIA Not Available Start: 01-29-2023 End: 01-29-2023 ambulatory CRISTINA FASHIRLEYLevon Not Available Start: 01-23-2023 End: 01-23-2023 ambulatory Ana Luisa Curtis Other [facility] Other Start: 01-23-2023 Office outpatient vi sit 15 minutes Ana Luisa Curtis [facility] Start: 01-18-2023 End: 01-18-2023 ambulatory Elle Hendricks Other [facility] Other Start: 01-18-2023 Office outpatient vi sit 15 minutes Elle Hendrikcs [facility] Carlos Start: 09-19-2022 End: 09-19-2022 ambulatory Ana Luisa Curtis Other [facility] Other Start: 09-19-2022 Telephone encounter Ana Luisa Curtis F [facility] Start: 07-12-[address] JONATHAN Seayi ty:H1 Start: 06-07-2022 End: 06-08-[address] JONATHAN EDWARDS Facility:[facility]1 Start: 05-02-2022 End: 05-02-2022 ambulatory Ana Luisa Curtis Other [facility] Other Start: 05-02-2022 Office outpatient ne w [...] Start: 08-30-2021 End: 08-31-2021 ambulatory NIKKIE BARCLAY [facility] Start: 08-30-2021 End: 08-30-2021 Subsequent hospital visit by physician Sr Edwards DO Work Phone: [facility] Comment on above: Routine cervical sme ar Start: 08-16-2021 Encounter for genera l adult medical examination without abnormal findings DR RICARDO HOLM . [facility] Start: 08-09-2021 End: 08-10-2021 Encounter for [...] for malign ant neoplasm of colon [facility] Start: 08-30-2024 Screening for malign ant neoplasm of cervix [facility] Start: 03-20-2024 Screening for malign ant neoplasm of breast Mammogram [facility] Start: 02-27-2024 End: 02-27-2024 Patient encounter procedure 02/27/2024 11:35 AM EST Office Visit [facility] [address] [place] [address] Elida Garcia MD [address] [place] [address] [facility] Start: 02-12-2024 Glaucoma screening Diabetes: R etinopathy Screening [facility] Start: 08-11-2023 Influenza vaccination Influenza Vacc ine (#1) [facility] Comment on above: Postponed from 10/12 (Patient Refused) Start: 05-02-2023 End: 05-02-2023 Patient encounter procedure 05/02/2023 2:00 PM EDT Office Visit [facility] [address] [place] [address] Shaikh Connelly MD [address] [place] [address] [facility] Start: 02-17-2023 Hemoglobin A1c measurement Diabetes: Hemoglobin A1C [facility] Start: 09-04-2022 End: 09-04-2022 Patient encounter procedure 09/04/2022 Office Visit Obstetrics and Gynecology Nikkie Barclay, COOK TORTILLA - CNM [address] [facility] [address] [place] [address] [facility] Start: 10-12-2021 Influenza vaccination Flu vaccine (# 1) [facility] Start: 10-21-2013 Screening for malign ant neoplasm of breast Breast cancer screen [facility] Start: 10-21-2013 Shingles vaccine (1 of 2) Shingles vaccine (1 of 2) [facility] Start: 10-21-2008 Screening for malign ant neoplasm of colon [facility] Start: 2003 Lipid panel Lipids [facility] Start: 10-21-1998 Diabetes screen Diabetes screen [facility] Start: 10-21-1993 Screening for malign ant neoplasm of cervix [facility] Start: 10-21-1982 DTaP/Tdap/Td vaccine (1 - Tdap) DTaP/Tdap/Td vaccine (1 - Tdap) [facility] Start: 10-21-1982 Urine screening for protein Diabetes: Urine Protein Screening [facility] Start: 10-21-1981 Hepatitis C screening Hepatitis C sc reen [facility] Start: 10-21-1978 HIV screening HIV screen [facility] Start: 1975 Depression Screen Depression Screen [facility] Start: 04-20-1964 COVID-19 Vaccine (#1) COVID-19 Vacci ne (#1) [facility] Start: 1963 Screening for malign ant neoplasm of colon [facility] End: 08-30-2021 Cytopathology procedure, preparation [...] Category Payer Unknown [employer] [id number] 2022-Present [phone] [address] [address] [place] [address] [id number] 2012 Medicare MEDICARE MEDICAR E PART B [id number] 2012-[place] [address] [address] Medicare [id number]. [id number] 1963 Unknown [id number] 2.16.840.1.349705.3.579.2.17 3 1963 Unknown [id number] 2.16.840.1.839600.3.579.2.59 3 1963 Unknown [id number] 2.16.840.1.071429.3.579.2.59 3 1963 Unknown [id number] 2.16.840.1.726336.3.579.2.59 3 1963 Unknown [id number] 2.16.840.1.303999.3.579.2.59 3 1963 Unknown [id number] 2.16.840.1.770534.3.579.2.59 3 1963 Unknown [id number] 2.16.840.1.048251.3.579.2.59 3 1963 Unknown [id number] 2.16.840.1.945500.3.579.2.59 3 1963 Unknown [id number] 2.16.840.1.020352.3.579.2.59 3 1963 Unknown [id number] 2.16.840.1.074323.3.579.2.59 3 1963 Unknown [id number] 2.16.840.1.289202.3.579.2.59 3 1963 Unknown [id number] 2.16.840.1.256874.3.579.2.59 3 1963 Unknown [id number] 2.16.840.1.508190.3.579.2.59 3 1963 Unknown [id number] 2.16.840.1.880311.3.579.2.59 3 1963 Unknown [id number] 2.16.840.1.240350.3.579.2.59 3 1963 Unknown [id number] 2.16.840.1.520590.3.579.2.59 3 1963 Unknown [id number] 2.16.840.1.893981.3.579.2.59 3 1963 Unknown [id number] 2.16.840.1.527884.3.579.2.12 59 1963 Unknown [id number] 2.16.840.1.438899.3.579.2.12 59 1963 Unknown [id number] 2.16.840.1.794145.3.579.2.12 59 1963 Unknown [id number] 2.16.840.1.121612.3.579.2.12 59 1963 Unknown [id number] 2.16.840.1.522905.3.579.2.12 59 1963 Unknown [id number] 2.16.840.1.820655.3.579.2.12 59 1963 Unknown [id number] 2.16.840.1.032317.3.579.2.12 59 1959 Medicare [id number] 1.2.840.245861.1.13.239.2.7. 3.557518.315 1959 Unknown [id number] 1.2.840.778037.1.13.239.2.7. 3.950517.315 1959 Unknown [id number] 2.16.840.1.155309.19 Medicare Medicare [id number] Self-pay Self Pay [id number] Social History Date Type Detail Facility Start: 08-30-2021 Tobacco smoking stat us [facility] Smokes tobacco daily [facility] Phone: History of tobacco use Cigarette Smoker [facility] [employer] Phone: Start: 08-30-2021 End: 01-29-2023 Tobacco use and exposure Smokeless tobacco non-user [facility]: Start: 08-30-2021 Alcohol intake Current drinke r of alcohol (finding) [facility] Phone: Start: 08-30-2021 History SDOH Alcohol Comment occasional [facility] Phone: Start: 1965 Sex Assigned At Not on file [facility] [employer] Phone: Start: 08-20-2021 End: 08-30-2021 Exposure to SARS-CoV-2 (event) Not sure [employer] Start: 02-25-2023 Sex Assigned At N [employer] Other Start: 01-23-2023 End: 01-29-2023 Tobacco smoking status [facility] Ex-smoker [facility] History of tobacco use Current smoker [facility] Start: 01-29-2023 End: 02-25-2023 Cigarettes smoked current (pack per day) - Reported 0.5 [facility] Start: 02-25-2023 Alcohol intake Lifetime non-d gus (finding) [facility] Start: 1965 Sex Assigned At Female F [facility] Medical Equipment Procedure Code Equipment Code Equipment Origin al Text Equipment Identifier Dates USE TO TEST BLOO D SUGAR TWICE DAILY [id number] Start: 06-08-2021 Clinical Notes 06-20-2021 to 03-19-2023 [...] Mar, Left hand pain (ICD-10 - M79.642) [facility] Other 12-13-2023 Evaluation note* Encounter Date [...] noted. Patient will f/u in 4 weeks. [facility] Other 12-08-2023 Evaluation note* Encounter Date [...] x-ray that was performed at [facility] which revealed degenerative changes in the hand as well as a remote avulsion fracture of the thumb. Patient states her family doctor is treating her for gout in her hand. Jan, History of gout (ICD-10 - Z87.39) Jan, Other Gout material w as printed [facility] Other 08-09-2023 Evaluation note* Encounter Date Diagnosis Assessment Notes Treatment Notes Treatment Clinical Notes Sep, Right wrist pain (ICD-10 - M25.531) [facility] Other 04-27-2023 NoteCONSULTATION CONSULTATION DATE: 06/07/2022 [...] our patients to inform us about any scle-djv-mbpnhiz medications or herbal remedies/nutritional supplements/alternative remedies. 2. [...] with their primary care provider.[id number] Evaluation note * Encounter Date Diagnosis Assessment [...] understanding and is agreeable to treatment plan. [facility] Other 01-26-2023 NoteCONSULTATION PROCEDURE DATE: 03/08/2022 [...] followed up in the clinic.[id number] NotePROCEDURE: XR KNEE LT 4V or > [...] Electronically authenticated by: PATTIE SALTER Date: 2022-02-16 11:29[facility]12-30-2022 NoteCONSULTATION CONSULTATION DATE: 02/09/2022 HISTORY [...] Patient agrees with this plan.[facility] [id number] NotePROCEDURE: XR WRIST RT MIN 3 V COMPARISON: None. HISTORY: Injury of right wrist FINDINGS: BONES:No acute fracture or dislocation. Corticated bone fragment identified along the first carpometacarpal joint [degenerative in nature SOFT TISSUES:Moderate diffuse soft tissue swelling EFFUSION:None visible. OTHER: Negative. IMPRESSION: Soft tissue swelling, no acute fracture Electronically authenticated by: RYAN GOLDMAN Date: 2021-11-16 18:59[facility] [id number] NoteCONSULTATION CONSULTATION DATE: 11/01/2021 HISTORY OF PRESENT [...] Patient agrees with this plan.[facility] [id number] NoteCONSULTATION PROCEDURE DATE: 11/01/2021 PRE AND POSTOPERATIVE [...] followed up in the clinic.[facility] [id number] NoteCONSULTATION PROCEDURE DATE: 08/09/2021 PREOPERATIVE DIAGNOSIS: Bilateral [...] Approved by: CRYS PIERCE . 08/10/2021 13:37:00[facility] [id number] NoteCONSULTATION CONSULTATION DATE: 07/19/2021 HISTORY OF PRESENT [...] and Approved by: CRYS PIERCE . 07/20/2021 10:33:00[facility]05-25-2022 NotePROCEDURE: XR FOOT RT MIN [...] Electronically authenticated by: PATTIE SALTER Date: 2021-07-05 11:11[facility]05-10-2022 NoteCONSULTATION CONSULTATION DATE: 06/20/2021 CHIEF [...] Approved by: DR RICARDO HOLM . 06/27/2021 10:40:00[facility] Diagnosis Routine cervical smear Screening for malignant neoplasm of the cervix documented in this encounter [facility] Work Phone: evaluation note* Diagnosis Diabetic polyneuropathy associated with type 2 diabetes mellitus ([facility])- Primary documented in this encounter [facility] HealthcareEvaluation noteNo assessment information availableMagruder Hospital Work Phone: History general Narrative - Reported* Type Description Date Medical History GERD (gastroesophageal reflux di sease) Medical History Migraine headache Medical History Arthritis Medical History Edema of both legs Medical History Diabetes mellitus, type 2 Medical History Chronic back pain Surgical History ablasion Surgical History back surgery Surgical History hysterectomy Surgical History tubal ligation Hospitalization History see above [facility] Other Summary Purpose Family History No [...] Care Teams (unrecognized sec tion and content) Stem Frazer Relationship Specialty Start Date End Date Sr Jonathan Edwards DO [address] [place] [address] PCP - General Family Medicine 08/30/21 Stem Frazer Relationship Specialty Start Date End Date Shaikh [...] DATE CREATED AUTHOR AUTHOR'S ORGANIZ ATION 10/05/2023 [facility] EPIC DATE CREATED AUTHOR AUTHOR'S ORGANIZ ATION 10/06/2023 [facility] REASON FOR VISIT (unrecogniz ed section and [...] BE BASED ON THE PRIMARY CLINICAL RECORDS. [employer] [facility]. provides no warranty or guarantee of the accuracy or completeness of information in this document.
[2023-11-26 08:56] LABS: Glucometer 154 mg/dL (74-106)
[2023-11-26 09:04] VITALS: BP 95/65; PULSE 102; TEMP 36.6; O2SAT 98
[2023-11-26] MEDS: BUPIVACAINE HCL 0.25% PF 25 MG/10 ML VIAL 6 ML INJ (09:58)
[2023-11-26 10:02] VITALS: BP 105/65; PULSE 101; PULSE 99; O2SAT 92; O2SAT 94
[2023-11-26 10:03] VITALS: BP 123/77
--- NOTE | 2023-11-26 10:28 | P.ON_ITS ---
Date of procedure: 11/26/23 Pre-op diagnosis: Lumbar spondylosis Post-op diagnosis: same as pre-op Procedure: Bilateral Lumbar 4/5, 5/sacral 1 medial branch block Preop diagnosis includes pain secondary to spondylosis, Postop diagnosis same Under fluoroscopic guidance Solution injected: 2milliliters Marcaine 0.25% Anesthesia :none Immediate complications none Time out process compliant After informed consent obtained from the patient placed in the Prone proposition . area was prepped and draped in a sterile fashion using betadine .25 gauge spinal needle inserted over each of the above mentioned target areas . [place] were directed towards the target under fluoroscopic guidance . after encountering each of the targets , no indication of intravascular intraneuronal or intrathecal needle tip placement. Then 0 .5 to 1 Milliliter was injected at each level. Norwalk removed postoperatively. patient transferred to recovery in stable condition to be discharged home after meeting criteria Anesthesia: Local Surgeon: Kenyon Bradford Condition: stable
== END 2023-11-26 10:08 | disposition home or self-care (01) ==
LOC: SURGOUT 08:32
PROVIDERS: PCP Internal Medicine; Visit Provider Anesthesiology Pain Medicine
DX: M47.816 Spondylosis without myelopathy or radiculopathy, lumbar region (principal)
CPT/HCPCS: 36415; 64493; 64494; 82948; J0665

== ENCOUNTER 2023-12-03 10:22 | Outpatient (OUT) | payer OTHER, MEDICARE, SELFPAY ==
--- NOTE | 2023-12-03 | CONS_ITS ---
CONSULTATION DATE: 12/03/2023 TO: Dr. Drake CHIEF COMPLAINT: Includes severe bilateral lower back pain, worse on the right than the left side, with pain at least 7/10, sharp in character, increased with activities such as standing, walking and performing transitioning maneuvers. She feels most comfortable in the semi-recumbent position. Denies any change in bowel and bladder habits or new sensorimotor changes in the lower extremities. She has undergone a second diagnostic medial branch block at the L4-5, L5-S1 level. She reports she was 100% improved, starting in the immediate post procedural period, lasting for several hours, with recurrence of pain back to her baseline. EXAM: Her examination is notable for patient having no clinical radiculopathy or myelopathy involving the lower extremities. She did have persistent pain with lumbar facet loading maneuvers occurring bilaterally L4-5 and L5-S1, with associated myofascial spasm of her lumbar paravertebral muscles. IMPRESSION: Our impression is patient with chronic pain secondary to lumbosacral spondylosis. She has undergone two diagnostic medial branch blocks at the corresponding levels, where she had improvement of pain symptoms by at least 85%, lasting for several hours, starting in the immediate post procedural period, with recurrence of pain back to her baseline. RECOMMENDATIONS: She has failed conservative therapy with medication regimen including nonsteroidal agents, most recently diclofenac, for at least the last six months, as well as physical therapy. Her JAYME on today?s visit is 27%. I have gone over the details of the procedure with the patient. All her questions were answered. She agrees to proceed with the outlined plan. Of note, because patient is on an opioid we have given her a script for Narcan. As part of providing excellent, safe, comprehensive care, the following was completed at our patient's visit: 1. A medication reconciliation and review to ensure accurate knowledge of current/active medications, including asking our patients to inform us about any bwpt-led-ojhefhb medications or herbal remedies/nutritional supplements/alternative remedies. 2. A review to specifically ensure our patients have had annual screening for: elevated body mass index (BMI, see intake chart for exact total), tobacco use, screening for depression, and screening for unhealthy alcohol use. When screening is concerning, patients are provided with education and the specific recommendation to discuss the concerning health issue and treatment options with their primary care provider GINA
--- OUTSIDE RECORDS SUMMARY | 2023-12-03 10:25 | XMS_ITS | CCD ---
Author Organization [facility] Care Team Providers Care Compliance Auditor Name Role Phone House DO, Sr Jonathan [...] GAETANO, DR PATTIE Nieves Consulting Unavailable SUSSY OJNES Consulting Unavailable PAOLI, DR BASURTO Attending Unavailable PAOLI, DR BASURTO Primary Care Unavailable PAOLI, DR BASURTO Admitting Unavailable PAOLI, DR BASURTO Consulting Unavailable PAOLI, DR BASURTO Primary Care Unavailable GAETANO, DR PATTIE Nieves Consulting Unavailable LAKSHMIPATHY ., NARENDRONALDATH Admitting Nellie vailable LAKSHMIPATHY ., DEMETRIUSATH Attending Nellie vailable LAKSHMIPATHY ., BILLY Consulting Nellie vailable HOUSE, DR BASURTO Admitting Unavailable PAOLI, DR BASURTO Attending Unavailable PAOLI, DR BASURTO Primary Care Unavailable MAKINEN, DR RYAN Guzman Consulting Unavailable PAOLI, DR JONATHAN Trimble Unavailable HOLM ., DR RICARDO Belcher Admitting Unavailable HOUSE, DR BASURTO Primary Care Unavailable HOLM ., DR RICARDO Belcher Attending Unavailable HOLM ., DR RICARDO Belcher Consulting Unavailable HLOM ., DR RICARDO Belcher Admitting Unavailable HOUSE, DR BASURTO Primary Care Unavailable HOLM ., DR RICARDO Belcher Attending Unavailable HOLM ., DR RICARDO Belcher Consulting Unavailable PIERCE ., CRYS Consulting Unavailable PIERCE ., CRYS Trimble Unavailable PAOLI, DR BASURTO Primary Care Unavailable HOLM ., DR RICARDO Belcher Admitting Unavailable HOLM ., DR RICARDO Belcher Attending Unavailable LAKSHMIPATHY ., BILLY Consulting Nellie vailable PAOLI, DR BASURTO Primary Care Unavailable HOLM ., DR RICARDO Belcher Admitting Unavailable HOLM ., DR RICARDO Belcher Attending Unavailable PIERCE ., CRYS Consulting Unavailable Elle Hendricks Unavailable Shaikh Connelly MD Primary Care Provider [phone] ELIDA GARCIA Attending Unavailable SHAIKH CONNELLY Attending [...] 01-12-2017 take 500 mg by mouth twice odesas ly Metformin Active 500 MG PO Twice [...] day Active take 1 capsule by mo [facility] twice daily pregabalin (LYRICA) 50 MG [...] 12, 2017 1:00am January 15, 2017 2:23pm Xpvfmysxsuip-Uy-Zey n-Minerals (Multiple Vitamin, Womens) Tablet (1 source) Start: 01-12-2017 End: 01-15-2017 Maolgqphiqmw-Yv-Sj on-Minerals (Multiple Vitamin, Womens) Tablet Discontinued PO [...] PATTIE SALTER Date: 2022-06-07 11:15 Normal [facility] CBC AUTO DIFFon 04-12-2022 BASO # 0.1 103/ul Normal 0.0-0.1 [facility] Comment on above: Performed By: #### C BC ####[facility] [address] [place] [address]Dr. Ricky Valenzuela Basophils/100 WBC (Bld) 0.5 % Normal 0.2-2.0 [facility] Comment on above: Performed By: #### C BC ####[facility] [address]fs[address] [place], [place] [address]Dr. Ricky Valenzuela EO # 0.3 103/ul Normal 0.0-0.7 [facility] Comment on above: Performed By: #### C BC ####[facility] [address] [place], [place] [address]Dr. Ricky Valenzuela Eosinophils/100 WBC (Bld) 3.0 % Normal 0.9-7.0 [facility] Comment on above: Performed By: #### C BC ####[facility] [address] [place], [place] [address]Dr. Ricky Valenzuela Erythrocyte distribution width (RBC) [Ratio] 14.8 % Normal 11.0-15.0 [facility] Comment on above: Performed By: #### C BC ####[facility] [address] [place], [place] [address]Dr. Ricky Valenzuela Hematocrit (Bld) [Volume fraction] 40.6 % Normal 36.0-48.0 [facility] Comment on above: Performed By: #### C BC ####[facility] [address] [place], [place] [address]Dr. Ricky Valenzuela Hemoglobin (Bld) [Mass/Vol] 13.5 g/dL Normal 12.0-16.0 [facility] Comment on above: Performed By: #### C BC ####[facility] [address] [place] [id number] Valenzuela IG # 0.16 10e3/ul Critically high 0.00-0.03 [facility] Comment on above: Performed By: #### C BC ####[facility] [address] [place] [phone] Valenzuela IG % 1.4 % Critically high 0.0-0.5 [facility] Comment on above: Performed By: #### C BC ####[facility] [address]lyv[address] [place] [address]DrPasquale Valenzuela LYMPH # 3.4 103/ul Normal 1.2-3.8 [facility] Comment on above: Performed By: #### C BC ####[facility] [address]rgixiw[address] [place] [address]DrPasquale Valenzuela Lymphocytes/100 WBC (Bld) 30.4 % Normal 20.5-60.0 [facility] Comment on above: Performed By: #### C BC ####[facility] [address]im[address] [place] [address]DrPasquale Valenzuela MANUAL DIFF REQ NO Normal [facility] Comment on above: Performed By: #### C BC ####[facility] [address] [place] [address]DrPasquale Valenzuela MCH (RBC) [Entitic mass] 31.8 pg Normal 26.7-34.0 [facility] Comment on above: Performed By: #### C BC ####[facility] [address]zg[address] [place] [phone] Valenzuela MCHC (RBC) [Mass/Vol] 33.3 g/dL Normal 29.9-35.2 [facility] Comment on above: Performed By: #### C BC ####[facility] [address]jh[address]ts[address] [place] [phone] Valenzuela MCV (RBC) [Entitic vol] 95.5 fL Normal 81.0-99.0 [facility] Comment on above: Performed By: #### C BC ####[facility] [address]lsrq[address] [place] [phone]. Ricky Valenzuela MONO # 0.9 103/ul Critically high 0.3-0.8 [facility] Comment on above: Performed By: #### C BC ####[facility] [address] [place] [phone]. Ricky Nicolas Monocytes/100 WBC (Bld) 7.7 % Normal 1.7-12.0 [facility] Comment on above: Performed By: #### C BC ####[facility] [address] [place] [address]Dr. Ricky Valenzuela NEUT # 6.3 103/ul Normal 1.4-6.5 [facility] Comment on above: Performed By: #### C BC ####[facility] [address]xyiv[address] [place] [address]Dr. Lesleysharron Valenzuela Neutrophils/100 WBC (Bld) 57.0 % Normal 43.0-75.0 [facility] Comment on above: Performed By: #### C BC ####[facility] [address] [place], [place] [address]Dr. Ricky Valenzuela Platelet mean volume (Bld) [Entitic vol] 9.8 fL Normal 9.5-13.5 [facility] Comment on above: Performed By: #### C BC ####[facility] [address] [place], [place] [id number]. Ricky Valenzuela PLT 246 103/ul Normal 150-450 [facility] Comment on above: Performed By: #### C BC ####[facility] A[address]id[address]ce[address] [place], [place] [id number]. Ricky Valenzuela RBC 4.25 106/ul Normal 4.20-5.40 [facility] Comment on above: Performed By: #### C BC ####[facility] [address] [place] [phone]. Ricky Valenzuela WBC 11.1 103/ul Critically high 4.0-11.0 [facility] Comment on above: Performed By: #### C BC ####[facility] [address] [place] [address]Dr. Ricky Valenzuela GLYCOHEMOGLOBIN A1Con 2022 ADA RECOMMENDATION SEE BELOW Normal [facility] Comment on above: Result Comment: ADA RECOMMENDED LIMIT 4.0 - 6.0 ADA THERAPEUTIC TARGET < 7.0 ACTION SUGGESTED > 7.0 Performed By: #### A 1C ####[facility] [address] [place] [address]DrPasquale Valenzuela Glucose [Mass/Vol] 160 mg/dL Normal [facility] Comment on above: Performed By: #### A 1C ####[facility] [address]auf[address] [place] [address]DrPasquale Valenzuela HbA1c (Bld) [Mass fraction] 7.2 % Critically high 4.5-6.2 [facility] Comment on above: Performed By: #### A 1C ####[facility] [address] [place] [address]DrPasquale Valenzuela MICROALBUMIN, RAND URon - mALB <1.3 Normal <=30.0 [facility] Comment on above: Performed By: #### M ALBR #### [facility] [address] [place] [address] [address] Ricky Valenzuela PROF 14(COMP METB)on 023 Albumin [Mass/Vol] 3.3 g/dL Critically low 3.4-5.0 [facility] Comment on above: Performed By: #### C MP #### [facility] [address] [address] [address] Ricky Valenzuela Albumin/Globulin [Mass ratio] 0.9 {ratio} Normal [facility] Comment on above: Performed By: #### C MP #### [facility] [address] [address] [address] Ricky Valenzuela ALP [Catalytic activity/Vol] 90 U/L Normal 46-116 [facility] Comment on above: Performed By: #### C MP #### [facility] [address] [address] [address] Ricky Valenzuela ALT [Catalytic activity/Vol] 42 U/L Normal 14-59 [facility] Comment on above: Performed By: #### C MP #### [facility] [address] [place] [address] Dr. Ricky Valenzuela Anion gap [Moles/Vol] 10.1 mmol/L Normal Th [facility] Comment on above: Performed By: #### C MP #### [facility] [address] [address] [address] Ricky Valenzuela AST [Catalytic activity/Vol] 21 U/L Normal 15-37 [facility] Comment on above: Performed By: #### C MP #### [facility] [address] [address] [address] Ricky Valenzuela Bilirubin [Mass/Vol] 0.3 mg/dL Normal 0.2-1.0 [facility] Comment on above: Performed By: #### C MP #### [facility] [address] [place] [address] Dr. Ricky Valenzuela Calcium [Mass/Vol] 9.8 mg/dL Normal 8.5-10.1 [facility] Comment on above: Performed By: #### C MP #### [facility] [address] [place] [address] Dr. Ricky Valenzuela Chloride [Moles/Vol] 99 mmol/L Normal 98-107 [facility] Comment on above: Performed By: #### C MP #### [facility] [address] [address] [address] Ricky Valenzuela CO2 [Moles/Vol] 33.7 mmol/L Critically high 21.0-32.0 [facility] Comment on above: Performed By: #### C MP #### [facility] [address] [place] [address] Dr. Ricky Valenzuela Creatinine [Mass/Vol] 0.94 mg/dL Normal 0.55-1.02 [facility] Comment on above: Performed By: #### C MP #### [facility] [address] [place] [address] Dr. Ricky Valenzuela EGFR-AF IRISH >60 Normal >=60 [facility] Comment on above: Performed By: #### C MP #### [facility] [address] [address] [address] Ricky Valenzuela EGFR-NON AF IRISH >60 Normal >=60 [facility] Comment on above: Performed By: #### C MP #### [facility] [address] [address] [address] Ricky Valenzuela Globulin (S) [Mass/Vol] 3.8 g/dL Normal [facility] Comment on above: Performed By: #### C MP #### [facility] [address] [address] [address] Ricky Valenzuela Glucose [Mass/Vol] 168 mg/dL Critically high 74-106 [facility] Comment on above: Performed By: #### C MP #### [facility] [address] [address] [address] Ricky Valenzuela Potassium [Moles/Vol] 4.8 mmol/L Normal 3.5-5.1 [facility] Comment on above: Performed By: #### C MP #### [facility] [address] [address] [address] Ricky Valenzuela Protein [Mass/Vol] 7.1 g/dL Normal 6.4-8.2 [facility] Comment on above: Performed By: #### C MP #### [facility] [address] [address] [address] Ricky Valenzuela Sodium [Moles/Vol] 138 mmol/L Normal 136-145 [facility] Comment on above: Performed By: #### C MP #### [facility] [address] [address] [address] Ricky Valenzuela Urea nitrogen [Mass/Vol] 22.0 mg/dL Critically high 7.0-18.0 [facility] Comment on above: Performed By: #### C MP #### [facility] [address] [address] [address] Ricky Valenzuela Urea nitrogen/Creatinine [Mass ratio] 23.4 mg/mg Normal [facility] Comment on above: Performed By: #### C MP #### [facility] [address] [address] [address] Ricky Valenzuela Cytologyon 08-30-2021 Cytology (NOTE) INTERPRETATION Vaginal material, (ThinPrep vial, Imaging-assisted review): Specimen Adequacy: Satisfactory for evaluation. Descriptive Diagnosis: Negative for intraepithelial lesion or malignancy. Mold Breaker: CLARK Delacruz(ASCP) Electronically Signed Out ss/09/07/2021 Source: A: Vaginal material, (ThinPrep vial, Imaging-assisted review) Clinical History Hysterectomy Surgery: Salpingostomy; Ovary removal Z12.4 Encounter for screening for malignant neoplasm of cervix GYNECOLOGIC CYTOLOGY REPORT Patient Name: KARINA DE OLIVEIRA [facility] Rec: [id number] Path Number: [id number] [facility] CONSULTING PATHOLOGISTS [facility] ANATOMIC PATHOLOGY [address] [place] [id number] Normal [facility] Comment on above: Performed By: #### P PPVP #### [address] [id number] Performance Improvement Specialist: Luca Cummins MD CBC AUTO DIFFon 08-09-2021 BASO # 0.1 103/ul Normal 0.0-0.1 [facility] Comment on above: Performed By: #### C BC #### [facility] [address] [address] [address] Ricky Valenzuela Basophils/100 WBC (Bld) 0.8 % Normal 0.2-2.0 [facility] Comment on above: Performed By: #### C BC #### [facility] [phone] [address] Ricky Valenzuela EO # 0.2 103/ul Normal 0.0-0.7 [facility] Comment on above: Performed By: #### C BC #### [facility] [address] [address] [address] Ricky Valenzuela Eosinophils/100 WBC (Bld) 2.1 % Normal 0.9-7.0 [facility] Comment on above: Performed By: #### C BC #### [facility] [address] [address] [address] Ricky Valenzuela Erythrocyte distribution width (RBC) [Ratio] 15.2 % Critically high 11.0-15.0 [facility] Comment on above: Performed By: #### C BC #### [facility] [address] [place] [address] Dr. Ricky Valenzuela Hematocrit (Bld) [Volume fraction] 41.5 % Normal 36.0-48.0 [facility] Comment on above: Performed By: #### C BC #### [facility] [address] [place] [address] Dr. Ricky Valenzuela Hemoglobin (Bld) [Mass/Vol] 13.5 g/dL Normal 12.0-16.0 [facility] Comment on above: Performed By: #### C BC #### [facility] [address] [place] [address] Dr. Ricky Valenzuela IG # 0.42 10e3/ul Critically high 0.00-0.03 [facility] Comment on above: Performed By: #### C BC #### [facility] [address] [place] [address] Dr. Ricky Valenzuela IG % 3.8 % Critically high 0.0-0.5 [facility] Comment on above: Performed By: #### C BC #### [facility] [address] [place] [address] Dr. Ricky Valenzuela LYMPH # 3.3 103/ul Normal 1.2-3.8 [facility] Comment on above: Performed By: #### C BC #### [facility] [address] [place] [address] Dr. Ricky Valenzuela Lymphocytes/100 WBC (Bld) 29.1 % Normal 20.5-60.0 [facility] Comment on above: Performed By: #### C BC #### [facility] [address] [place] [address] Dr. Ricky Valenzuela MANUAL DIFF REQ NO Normal [facility] Comment on above: Performed By: #### C BC #### [facility] [address] [place] [address] Dr. Ricky Valenzuela MCH (RBC) [Entitic mass] 32.4 pg Normal 26.7-34.0 [facility] Comment on above: Performed By: #### C BC #### [facility] [address] [place] [address] Dr. Ricky Valenzuela MCHC (RBC) [Mass/Vol] 32.5 g/dL Normal 29.9-35.2 [facility] Comment on above: Performed By: #### C BC #### [facility] [address] [place] [address] Dr. Ricky Valenzuela MCV (RBC) [Entitic vol] 99.5 fL Critically high 81.0-99.0 [facility] Comment on above: Performed By: #### C BC #### [facility] [address] [place] [address] Dr. Ricky Valenzuela MONO # 0.8 103/ul Normal 0.3-0.8 [facility] Comment on above: Performed By: #### C BC #### [facility] [address] [place] [address] Dr. Ricky Valenzuela Monocytes/100 WBC (Bld) 7.5 % Normal 1.7-12.0 [facility] Comment on above: Performed By: #### C BC #### [facility] [address] [place] [address] Dr. Ricky Valenzuela NEUT # 6.3 103/ul Normal 1.4-6.5 [facility] Comment on above: Performed By: #### C BC #### [facility] [address] [place] [address] Dr. Ricky Valenzuela Neutrophils/100 WBC (Bld) 56.7 % Normal 43.0-75.0 [facility] Comment on above: Performed By: #### C BC #### [facility] [address] [place] [address] Dr. Ricky Valenzuela Platelet mean volume (Bld) [Entitic vol] 9.8 fL Normal 9.5-13.5 [facility] Comment on above: Performed By: #### C BC #### [facility] [address] [place], [place] [address] Dr. Ricky Valenzuela PLT 265 103/ul Normal 150-450 [facility] Comment on above: Performed By: #### C BC #### [facility] [address] [place], [place] [address] Dr. Ricky Valenzuela RBC 4.17 106/ul Critically low 4.20-5.40 [facility] Comment on above: Performed By: #### C BC #### [facility] [address] [place], [place] [address] Dr. Ricky Valenzuela WBC 11.2 103/ul Critically high 4.0-11.0 [facility] Comment on above: Performed By: #### C BC #### [facility] [address] [phone] [address] Ricky Valenzuela GLYCOHEMOGLOBIN A1Con 2021 ADA RECOMMENDATION SEE BELOW Normal [facility] Comment on above: Result Comment: ADA RECOMMENDED LIMIT 4.0 - 6.0 ADA THERAPEUTIC TARGET < 7.0 ACTION SUGGESTED > 7.0 Performed By: #### A 1C ####[facility] [address] [place] [phone]. Ricky Valenzuela Glucose [Mass/Vol] 183 mg/dL Normal [facility] Comment on above: Performed By: #### A 1C ####[facility] [address] [place] [id number]. Ricky Valenzuela HbA1c (Bld) [Mass fraction] 8.0 % Critically high 4.5-6.2 [facility] Comment on above: Performed By: #### A 1C ####[facility] [address] [place] [phone]. Ricky Valenzuela LIPID PROFILEon 08-09-2021 CHOL-HDL RATIO NORM SEE BELOW Normal [facility] Comment on above: Result Comment: 3.3 - 4.4 LOW RISK 4.4 - 7.1 AVERAGE RISK 7.1 - 11.0 MODERATE RISK >11.0 HIGH RISK Performed By: #### C MP, LIPID #### [facility] [address] [address] [address] Ricky Valenzuela Cholesterol [Mass/Vol] 239 mg/dL Critically high <=200 [facility] Comment on above: Performed By: #### C MP, LIPID #### [facility] [address] [address] [address] Ricky Valenzuela Cholesterol in HDL [Mass/Vol] 36 mg/dL Critically low 40-60 [facility] Comment on above: Performed By: #### C MP, LIPID #### [facility] [address] [address] [address] Ricky Valenzuela Cholesterol in LDL [Mass/Vol] 164.2 mg/dL Normal [facility] Comment on above: Performed By: #### C MP, LIPID #### [facility] [address] [address] [address] Ricky Valenzuela Cholesterol.total/Cho lesterol in HDL [Mass ratio] 6.6 {ratio} Normal [facility] Comment on above: Performed By: #### C MP, LIPID #### [facility] [address] [place] [address] Dr. Ricky Valenzuela HDL NORMAL > or = 60 mg/dl - LO W CARDIOVASCULAR RISK <40 mg/dl - HIGH CARDIOVASCULAR RISK Normal [facility] Comment on above: Performed By: #### C MP, LIPID #### [facility] [address] [address] [address] Ricky Valenzuela LDL CALC NORMAL SEE BELOW Normal [facility] Comment on above: Result Comment: <100 mg/dl OPTIMAL 100 - 129 mg/dl NEAR OR ABOVE OPTIMAL 130 - 159 mg/dl BORDERLINE HIGH 160 - 189 mg/dl HIGH >190 mg/dl VERY HIGH Performed By: #### C MP, LIPID #### [facility] [address] [address] [address] Ricky Valenzuela Triglyceride [Mass/Vol] 194 mg/dL Critically high <=150 [facility] Comment on above: Performed By: #### C MP, LIPID #### [facility] [address] [address] [address] Ricky Valenzuela VLDL CALC 38.8 mg/dL Normal [facility] Comment on above: Performed By: #### C MP, LIPID #### [facility] [address] [address] [address] Ricky Valenzuela MICROALBUMIN, RAND URon 07-13 mALB 13.1 mg/L Normal <=30.0 [facility] Comment on above: Performed By: #### M ALBR ####[facility] [address] [place], [place] [address]AoDr. Ricky Valenzuela PROF 14(COMP METB)on 022 Albumin [Mass/Vol] 3.3 g/dL Critically low 3.4-5.0 [facility] Comment on above: Performed By: #### C MP, LIPID #### [facility] [address] [address] [address] Ricky Valenzuela Albumin/Globulin [Mass ratio] 0.8 {ratio} Normal [facility] Comment on above: Performed By: #### C MP, LIPID #### [facility] [address] [place] [address] Dr. Ricky Valenzuela ALP [Catalytic activity/Vol] 93 U/L Normal 46-116 [facility] Comment on above: Performed By: #### C MP, LIPID #### [facility] [address] [place] [address] Dr. Ricky Valenzuela ALT [Catalytic activity/Vol] 37 U/L Normal 14-59 [facility] Comment on above: Performed By: #### C MP, LIPID #### [facility] [address] [place] [address] Dr. Ricky Valenzuela Anion gap [Moles/Vol] 10.9 mmol/L Normal Th [facility] Comment on above: Performed By: #### C MP, LIPID #### [facility] [address] [place] [address] Dr. Ricky Valenzuela AST [Catalytic activity/Vol] 10 U/L Critically low 15-37 [facility] Comment on above: Performed By: #### C MP, LIPID #### [facility] [address] [place] [address] Dr. Ricky Valenzuela Bilirubin [Mass/Vol] 0.2 mg/dL Normal 0.2-1.0 [facility] Comment on above: Performed By: #### C MP, LIPID #### [facility] [address] [place] [address] Dr. Ricky Valenzuela Calcium [Mass/Vol] 9.0 mg/dL Normal 8.5-10.1 [facility] Comment on above: Performed By: #### C MP, LIPID #### [facility] [address] [place] [address] Dr. Rciky Valenzuela Chloride [Moles/Vol] 100 mmol/L Normal 98-107 [facility] Comment on above: Performed By: #### C MP, LIPID #### [facility] [address] [place] [address] Dr. Ricky Valenzuela CO2 [Moles/Vol] 32.2 mmol/L Critically high 21.0-32.0 [facility] Comment on above: Performed By: #### C MP, LIPID #### [facility] [address] [place] [address] Dr. Ricky Valenzuela Creatinine [Mass/Vol] 0.95 mg/dL Normal 0.55-1.02 [facility] Comment on above: Performed By: #### C MP, LIPID #### [facility] [address] [place] [address] Dr. Ricky Valenzuela EGFR-AF IRISH >60 Normal >=60 [facility] Comment on above: Performed By: #### C MP, LIPID #### [facility] [address] [place] [address] Dr. Ricky Valenzuela EGFR-NON AF IRISH >60 Normal >=60 [facility] Comment on above: Performed By: #### C MP, LIPID #### [facility] [address] [place] [address] Dr. Ricky Valnezuela Globulin (S) [Mass/Vol] 4.2 g/dL Normal [facility] Comment on above: Performed By: #### C MP, LIPID #### [facility] [address] [place] [address] Dr. Ricky Valenzuela Glucose [Mass/Vol] 200 mg/dL Critically high 74-106 [facility] Comment on above: Performed By: #### C MP, LIPID #### [facility] [address] [address] [address] Ricky Valenzuela Potassium [Moles/Vol] 4.1 mmol/L Normal 3.5-5.1 [facility] Comment on above: Performed By: #### C MP, LIPID #### [facility] [address] [place] [address] Dr. Ricky Valenzuela Protein [Mass/Vol] 7.5 g/dL Normal 6.4-8.2 [facility] Comment on above: Performed By: #### C MP, LIPID #### [facility] [address] [place] [address] Dr. Ricky Valenzuela Sodium [Moles/Vol] 139 mmol/L Normal 136-145 [facility] Comment on above: Performed By: #### C MP, LIPID #### [facility] [address] [place] [address] Dr. Ricky Valenzuela Urea nitrogen [Mass/Vol] 13.0 mg/dL Normal 7.0-18.0 [facility] Comment on above: Performed By: #### C MP, LIPID #### [facility] [address] [place] [address] Dr. Ricky Valenzuela Urea nitrogen/Creatinine [Mass ratio] 13.7 mg/mg Normal [facility] Comment on above: Performed By: #### C MP, LIPID #### [facility] [address] [place] [address] Dr. Ricky Valenzuela POINT OF CARE GLUCOSEon 06-12 Glucose [Mass/Vol] 176 mg/dL Critically high 74-106 [facility] Comment on above: Performed By: #### P OCGLUC #### [facility] [address] [place] [address] Dr. Ricky Valenzuela Vital Signs Date Time Vital Sign Value Performing Clinician Facility 01-18-2023 09:[id number] Body height 156.21 cm Elle Hendricks Other [facility] Other 01-18-2023 09:10-0500 Body mass index (BMI) [Ratio] 42.82 kg/m2 Elle Hendricks Other [facility] Other 01-18-2023 09:10-0500 Body temperature 98.2 [degF] Elle Hendricks Other [facility] Other 01-18-2023 09:10-0500 Body weight 104.51 kg Elle Ruthie Other [facility] Other 01-18-2023 09:10-0500 Diastolic blood pressure 92 mm[Hg] Elle Ruthie Other [facility] Other 01-18-2023 09:10-0500 Respiratory rate 18 /min Elle Dejesusmond Other [facility] Other 01-18-2023 09:10-0500 SaO2% (BldA) [Mass fraction] 97 % Elle Ruthie Other [facility] Other 01-18-2023 09:10-0500 Systolic blood pressure 145 mm[Hg] Elle Ruthie Other [facility] Other Encounters Encounter Date Encounter Type Care Provider Facility Start: 10-04-2023 ambulatory Facility:E Michael Lima Start: 10-03-2023 End: 10-03-2023 ambulatory SONAM MARRTRICK Not Available Start: 08-22-2023 End: 08-22-2023 ambulatory CRISTINA FAWWAD Not Available Start: 08-05-2023 End: 08-05-2023 ambulatory CRISTINA FAWWAD Not Available Start: 07-04-2023 End: 07-04-2023 ambulatory CRISTINA FAWWAD Not Available Start: 05-02-2023 End: 05-02-2023 ambulatory CRISTINA FAWWAD Not Available Start: 04-30-2023 End: 04-30-2023 ambulatory [facility] Work Phone: Start: 04-30-2023 End: 04-30-2023 Patient encounter procedure [facility] Work Phone: Start: 03-21-2023 Orders Only Shaikh Maricel HOLLIS Work Phone: [facility] Comment on above: Diabetic polyneuropa thy associated with type 2 diabetes mellitus (CMS/HCC) (Primary Dx) Start: 03-19-2023 End: 03-19-2023 ambulatory Ana Luisa Curtis Other [facility] Other Start: 03-19-2023 Office outpatient vi sit 15 minutes Ana Luisa Curtis [facility] Start: 02-25-2023 End: 02-25-2023 ambulatory ELIDA GARCIA Not Available Start: 01-29-2023 End: 01-29-2023 ambulatory CRISTINA FASHIRLEYLevon Not Available Start: 01-23-2023 End: 01-23-2023 ambulatory Ana Luisa Curtis Other [facility] Other Start: 01-23-2023 Office outpatient vi sit 15 minutes Ana Luisa Curtis [facility] Start: 01-18-2023 End: 01-18-2023 ambulatory Elle Hendricks Other [facility] Other Start: 01-18-2023 Office outpatient vi sit 15 minutes Elle Hendricks [facility] Start: 09-19-2022 End: 09-19-2022 ambulatory Ana Luisa Curtis Other [facility] Other Start: 09-19-2022 Telephone encounter Ana Luisa Curtis F [facility] Start: 07-12-[address] JONATHAN Seayi ty:H1 Start: 06-07-2022 End: 06-08-[address] JONATHAN EDWARDS Facility:H1 Start: 05-02-2022 End: 05-02-2022 ambulatory Ana Luisa Curtis Other [facility] Other Start: 05-02-2022 Office outpatient ne w [...] Start: 08-30-2021 End: 08-31-2021 ambulatory NIKKIE BARCLAY [facility] Start: 08-30-2021 End: 08-30-2021 Subsequent hospital visit by physician Sr Edwards DO Work Phone: [facility] Comment on above: Routine cervical sme ar Start: 08-16-2021 Encounter for genera l adult medical examination without abnormal findings DR RICARDO HOLM . [facility] Start: 08-09-2021 End: 08-10-2021 Encounter for general [...] malign ant neoplasm of colon [facility] Start: 08-30-2024 Screening for malign ant neoplasm of cervix [facility] Start: 03-20-2024 Screening for malign ant neoplasm of breast Mammogram [facility] Start: 02-27-2024 End: 02-27-2024 Patient encounter procedure 02/27/2024 11:35 AM EST Office Visit [facility] [address] [place] [address] Elida Garcia MD [address] [place] [address] [facility] Start: 02-12-2024 Glaucoma screening Diabetes: R etinopathy Screening [facility] Start: 08-11-2023 Influenza vaccination Influenza Vacc ine (#1) [facility] Comment on above: Postponed from 10/12 (Patient Refused) Start: 05-02-2023 End: 05-02-2023 Patient encounter procedure 05/02/2023 2:00 PM EDT Office Visit [facility] [address] [place] [address] Shaikh Connelly MD [address] [place] [address] [facility] Start: 02-17-2023 Hemoglobin A1c measurement Diabetes: Hemoglobin A1C [facility] Start: 09-04-2022 End: 09-04-2022 Patient encounter procedure 09/04/2022 Office Visit Obstetrics and Gynecology Nikkie Barclay, SOCK EXAMINER - CNM [address] [facility] [address] [place] [address] [facility] Part of [facility] Start: 10-12-2021 Influenza vaccination Flu vaccine (# 1) [facility] Start: 10-21-2013 Screening for malign ant neoplasm of breast Breast cancer screen [facility] Start: 10-21-2013 Shingles vaccine (1 of 2) Shingles vaccine (1 of 2) [facility] Start: 10-21-2008 Screening for malign ant neoplasm of colon [facility] Start: 2003 Lipid panel Lipids [facility] Start: 10-21-1998 Diabetes screen Diabetes screen [facility] Start: 10-21-1993 Screening for malign ant neoplasm of cervix [facility] Start: 10-21-1982 DTaP/Tdap/Td vaccine (1 - Tdap) DTaP/Tdap/Td vaccine (1 - Tdap) [facility] Start: 10-21-1982 Urine screening for protein Diabetes: Urine Protein Screening [facility] Start: 10-21-1981 Hepatitis C screening Hepatitis C sc reen [facility] Start: 10-21-1978 HIV screening HIV screen [facility] Start: 1975 Depression Screen Depression Screen [facility] Start: 04-20-1964 COVID-19 Vaccine (#1) COVID-19 Vacci ne (#1) [facility] Start: 1963 Screening for malign ant neoplasm of colon [facility] End: 08-30-2021 Cytopathology procedure, preparation of smear, genital source [facility] Routine Routine cervical smear 1 Occurrences starting 08/30/2021 until 08/30/2021 [facility] Work Phone: Comment on above: 1 Occurrences starti ng 08/30/2021 until 08/30/2021 Immunizations Immunization Date Immunization Notes Care Provider Tima garcia 01-14-2017 influenza, injectabl e, quadrivalent, preservative free [facility] Payers Date Payer Category Payer Unknown [employer] [id number] 2022-Present [phone] [address] [address] [place] [address] [id number] 2012 Medicare MEDICARE MEDICAR E PART B [id number] 2012-[place] [address] Medicare [id number]. [id number] 1963 Unknown [id number] 2.16.840.1.886943.3.579.2.17 3 1963 Unknown [id number] 2.16.840.1.073745.3.579.2.59 3 1963 Unknown [id number] 2.16.840.1.971260.3.579.2.59 3 1963 Unknown [id number] 2.16.840.1.656360.3.579.2.59 3 1963 Unknown [id number] 2.16.840.1.249960.3.579.2.59 3 1963 Unknown [id number] 2.16.840.1.186814.3.579.2.59 3 1963 Unknown [id number] 2.16.840.1.358960.3.579.2.59 3 1963 Unknown [id number] 2.16.840.1.052846.3.579.2.59 3 1963 Unknown [id number] 2.16.840.1.598494.3.579.2.59 3 1963 Unknown [id number] 2.16.840.1.943768.3.579.2.59 3 1963 Unknown [id number] 2.16.840.1.139224.3.579.2.59 3 1963 Unknown [id number] 2.16.840.1.770680.3.579.2.59 3 1963 Unknown [id number] 2.16.840.1.643225.3.579.2.59 3 1963 Unknown [id number] 2.16.840.1.180150.3.579.2.59 3 1963 Unknown [id number] 2.16.840.1.804143.3.579.2.59 3 1963 Unknown [id number] 2.16.840.1.553963.3.579.2.59 3 1963 Unknown [id number] 2.16.840.1.047002.3.579.2.59 3 1963 Unknown [id number] 2.16.840.1.394758.3.579.2.12 59 1963 Unknown [id number] 2.16.840.1.628347.3.579.2.12 59 1963 Unknown [id number] 2.16.840.1.216377.3.579.2.12 59 1963 Unknown [id number] 2.16.840.1.796440.3.579.2.12 59 1963 Unknown [id number] 2.16.840.1.981087.3.579.2.12 59 1963 Unknown [id number] 2.16.840.1.635643.3.579.2.12 59 1963 Unknown [id number] 2.16.840.1.067862.3.579.2.12 59 1959 Medicare [id number] 1.2.840.840563.1.13.239.2.7. 3.503677.315 1959 Unknown [id number] 1.2.840.033184.1.13.239.2.7. 3.765000.315 1959 Unknown [id number] 2.16.840.1.772656.19 Medicare Medicare [id number] Self-pay Self Pay [id number] Social History Date Type Detail Facility Start: 08-30-2021 Tobacco smoking stat us [facility] Smokes tobacco daily [facility] Phone: History of tobacco use Cigarette Smoker B [facility] Phone: Start: 08-30-2021 End: 01-29-2023 Tobacco use and exposure Smokeless tobacco non-user [facility] Phone: Start: 08-30-2021 Alcohol intake Current drinke r of alcohol (finding) [facility] Phone: Start: 08-30-2021 History SDOH Alcohol Comment occasional [facility] Phone: Start: 1965 Sex Assigned At Not on file B ON [facility] Phone: Start: 08-20-2021 End: 08-30-2021 Exposure to SARS-CoV-2 (event) Not sure 4moms Start: 02-25-2023 Sex Assigned At N [facility] Other Start: 01-23-2023 End: 01-29-2023 Tobacco smoking status [facility] Ex-smoker [facility] History of tobacco use Current smoker [facility] Start: 01-29-2023 End: 02-25-2023 Cigarettes smoked current (pack per day) - Reported 0.5 [facility] Start: 02-25-2023 Alcohol intake Lifetime non-d gus (finding) [facility] Start: 1965 Sex Assigned At Female [facility] Medical Equipment Procedure Code Equipment Code Equipment Origin al Text Equipment Identifier Dates USE TO TEST BLOO D SUGAR TWICE DAILY [id number] Start: 06-08-2021 Clinical Notes 06-20-2021 to 03-19-2023 [...] Mar, Left hand pain (ICD-10 - M79.642) [facility] Other 12-13-2023 Evaluation note* Encounter Date Diagnosis [...] noted. Patient will f/u in 4 weeks. [facility] Other 12-08-2023 Evaluation note* Encounter Date Diagnosis [...] left hand x-ray that was performed at [facility] which revealed degenerative changes in the hand as well as a remote avulsion fracture of the thumb. Patient states her family doctor is treating her for gout in her hand. Jan, History of gout (ICD-10 - Z87.39) Jan, Other Gout material w as printed [facility] Other 08-09-2023 Evaluation note* Encounter Date Diagnosis Assessment Notes Treatment Notes Treatment Clinical Notes Sep, Right wrist pain (ICD-10 - M25.531) [facility] Other 04-27-2023 NoteCONSULTATION CONSULTATION DATE: 06/07/2022 TO: [...] our patients to inform us about any [id number] medications or herbal remedies/nutritional supplements/alternative remedies. 2. [...] treatment options with their primary care provider.[facility] note * Encounter Date Diagnosis Assessment [...] understanding and is agreeable to treatment plan. [facility] Other 01-26-2023 NoteCONSULTATION PROCEDURE DATE: 03/08/2022 PREOPERATIVE [...] will be followed up in the clinic.[id number] NotePROCEDURE: XR KNEE LT 4V or > [...] authenticated by: PATTIE SALTER Date: 2022-02-16 11:29[facility]12-30-2022 NoteCONSULTATION CONSULTATION DATE: 02/09/2022 HISTORY [...] office today. Patient agrees with this plan.[id number] NotePROCEDURE: XR WRIST RT MIN 3 V COMPARISON: None. HISTORY: Injury of right wrist FINDINGS: BONES:No acute fracture or dislocation. Corticated bone fragment identified along the first carpometacarpal joint [degenerative in nature SOFT TISSUES:Moderate diffuse soft tissue swelling EFFUSION:None visible. OTHER: Negative. IMPRESSION: Soft tissue swelling, no acute fracture Electronically authenticated by: RYAN GOLDMAN Date: 2021-11-16 18:59[id number] NoteCONSULTATION CONSULTATION DATE: 11/01/2021 HISTORY OF PRESENT [...] otherwise indicated. Patient agrees with this plan.[id number] NoteCONSULTATION PROCEDURE DATE: 11/01/2021 PRE AND POSTOPERATIVE [...] will be followed up in the clinic.[id number] NoteCONSULTATION PROCEDURE DATE: 08/09/2021 PREOPERATIVE DIAGNOSIS: Bilateral [...] will be followed up in the clinic. [facility] Signed and Approved by: CRYS PIERCE . 08/10/2021 13:37:00[facility]ffpdpu94-72-7906 NoteCONSULTATION CONSULTATION DATE: 07/19/2021 HISTORY OF PRESENT [...] injections. Patient acknowledges and all questions answered. [facility] Signed and Approved by: CRYS PIERCE . 07/20/2021 10:33:00[facility]05-25-2022 NotePROCEDURE: XR FOOT RT MIN [...] authenticated by: PATTIE SALTER Date: 2021-07-05 11:11[facility]05-10-2022 NoteCONSULTATION CONSULTATION DATE: 06/20/2021 CHIEF [...] like to proceed. CC: Jonathan Edwards M.D. [facility] Signed and Approved by: DR RICARDO HOLM . 06/27/2021 10:40:00[facility] Diagnosis Routine cervical smear Screening for malignant neoplasm of the cervix documented in this encounter [facility] Work Phone: evaluation note* Diagnosis Diabetic polyneuropathy associated with type 2 diabetes mellitus ([facility])- Primary documented in this encounter [facility] HealthcareEvaluation noteNo assessment information [facility]St[facility] Work Phone: History general Narrative - Reported* Type Description Date Medical History GERD (gastroesophageal reflux di sease) Medical History Migraine headache Medical History Arthritis Medical History Edema of both legs Medical History Diabetes mellitus, type 2 Medical History Chronic back pain Surgical History ablasion Surgical History back surgery Surgical History hysterectomy Surgical History tubal ligation Hospitalization History see above [facility] Other Summary Purpose Family History No Family [...] Care Teams (unrecognized sec tion and content) Compliance Auditor Relationship Specialty Start Date End Date Sr Jonathan Edwards DO [address] [place] [address] PCP - General Family Medicine 08/30/21 Compliance Auditor Relationship Specialty Start Date End Date Shaikh [...] AUTHOR AUTHOR'S ORGANIZ ATION 10/05/[address] [facility] EPIC DATE CREATED AUTHOR AUTHOR'S ORGANIZ ATION 10/06/2023 [facility] REASON FOR VISIT (unrecogniz ed section [...] BE BASED ON THE PRIMARY CLINICAL RECORDS. [employer] [facility]. provides no warranty or guarantee of the accuracy or completeness of information in this document.
== END 2023-12-03 10:23 | disposition home or self-care (01) ==
LOC: PM 10:23
PROVIDERS: PCP Internal Medicine; Visit Provider Anesthesiology Pain Medicine
DX: M47.816 Spondylosis without myelopathy or radiculopathy, lumbar region (principal); M54.50 Low back pain, unspecified
CPT/HCPCS: G0463

== ENCOUNTER 2023-12-18 10:54 | Outpatient (OUT) | payer OTHER, MEDICARE, SELFPAY ==
--- NOTE | 2023-12-18 10:59 | XR_ITS ---
The [address] [address] Patient Name: KARINA DE OLIVEIRA MRN: [id number] date: 1965 Sex: F Assigned Patient Location: [facility] Current Patient Location: Accession/Order Number: [id number] Exam Date: 12/18/2023 10:58 Report Date: 12/23/2023 07:39 At the request of: SUSSY JONES Procedure: XR foot LT min 3V PROCEDURE: XR foot LT min 3V COMPARISON: 10/16/2023 HISTORY: Left Foot Pain FINDINGS: BONES:Stable healing angulated fracture distal diaphysis of the second metatarsal with interval increase in bone formation and partial bony bridging. Stable lateral subluxation of the metatarsals in relation to the tarsal bones. Stable fusion first tarsometatarsal joint. SOFT TISSUES:Negative. No visible soft tissue swelling. EFFUSION:None visible. OTHER: Negative. XR/XR foot LT min 3V IMPRESSION: Stable healing second metatarsal fracture Electronically authenticated by: RYAN GOLDMAN Date: 12/23/2023 07:39
== END 2023-12-18 10:55 | disposition home or self-care (01) ==
LOC: RAD 10:54
PROVIDERS: PCP Internal Medicine; Visit Provider Podiatrist Foot & Ankle Surgery
DX: M79.672 Pain in left foot (principal); S92.325D Nondisplaced fracture of second metatarsal bone, left foot, subsequent encounter for fracture with routine healing
CPT/HCPCS: 73630

== ENCOUNTER 2023-12-23 16:01 | Outpatient (RCR) | payer OTHER, MEDICARE, SELFPAY | END 2024-01-24 07:49 | disposition home or self-care (01) | LOC: PT 16:01 | PROVIDERS: PCP Internal Medicine; Visit Provider Podiatrist Foot & Ankle Surgery | DX: M79.672 Pain in left foot (principal) | CPT/HCPCS: 97035; 97110; 97162 ==

== ENCOUNTER 2023-12-31 11:17 | Outpatient (OUT) | payer OTHER, MEDICARE, SELFPAY ==
[2023-12-31 11:57] LABS: Basophils Absolute Auto 0.1 10^3/uL (0.0-0.1); Basophils Percent Auto 0.4 % (0.2-2.0); Eosinophils Absolute Auto 0.4 10^3/uL (0.0-0.7); Eosinophils Percent Auto 3.2 % (0.9-7.0); Hematocrit 42.4 % (36.0-48.0); Hemoglobin 13.9 g/dL (12.0-16.0); Immature Granulocytes Abs Auto 0.09 10^3/uL (0.00-0.03); Immature Granulocytes Pct Auto 0.7 % (0.0-0.5); Lymphocytes Absolute Auto 3.5 10^3/uL (1.2-3.8); Lymphocytes Percent Auto 27.7 % (20.5-60.0); Mean Corpuscular HGB Conc 32.8 g/dL (29.9-35.2); Mean Corpuscular Hemoglobin 31.4 pg (26.7-34.0); Mean Corpuscular Volume 95.7 fL (81.0-99.0); Mean Platelet Volume 10.9 fL (9.5-13.5); Monocytes Absolute Auto 0.9 10^3/uL (0.3-0.8); Monocytes Percent Auto 7.4 % (1.7-12.0); Neutrophils Absolute Auto 7.7 10^3/uL (1.4-6.5); Neutrophils Percent Auto 60.6 % (43.0-75.0); Platelet Count 219 10^3/uL (150-450); Red Blood Count 4.43 10^6/uL (4.20-5.40); Red Cell Distribution Width 15.6 % (11.0-15.0); White Blood Count 12.8 10^3/uL (4.0-11.0)
[2023-12-31 12:03] LABS: Creatinine Urine Random 47.12 mg/dL (20.00-300.00); Microalbum Creatinine Ratio Ur 27.5 mg/g (0.0-29.9); Microalbumin Urine Random <1.3 mg/dL (<=30.0)
[2023-12-31 12:05] LABS: Estimated Average Glucose 134 mg/dL; Glycohemoglobin A1C 6.3 % (4.5-6.2)
[2023-12-31 12:18] LABS: Alanine Aminotransferase 16 U/L (14-59); Albumin Globulin Ratio 0.7; Albumin Level 3.1 g/dL (3.4-5.0); Alkaline Phosphatase 99 U/L (46-116); Anion Gap 12.8; Aspartate Amino Transferase 10 U/L (15-37); BUN Creatinine Ratio 21.9; Bilirubin Total 0.4 mg/dL (0.2-1.0); Calcium 10.2 mg/dL (8.5-10.1); Carbon Dioxide 31.2 mmol/L (21.0-32.0); Chloride 103 mmol/L (98-107); Estimated GFR (African America >60 (>=60 mL/min/1.73m^2); Estimated GFR (Non-African Ame 59 (>=60 mL/min/1.73m^2); Globulin 4.3 g/dL; Glucose 112 mg/dL (74-106); Sodium 143 mmol/L (136-145); Total Protein 7.4 g/dL (6.4-8.2)
== END 2023-12-31 11:18 | disposition home or self-care (01) ==
LOC: LAB 11:19
DX: R80.9 Proteinuria, unspecified (principal); E11.29 Type 2 diabetes mellitus with other diabetic kidney complication; I10 Essential (primary) hypertension
CPT/HCPCS: 36415; 80053; 82043; 82570; 83036; 85025

== ENCOUNTER 2024-01-14 08:16 | Day surgery (SDC) | payer OTHER, MEDICARE, SELFPAY ==
[2024-01-14 08:37] LABS: Glucometer 117 mg/dL (74-106)
--- OUTSIDE RECORDS SUMMARY | 2024-01-14 08:39 | XMS_ITS | CCD ---
Author Organization [facility] Care Team Providers Care Analysis Reporting Developer Name Role Phone House DO, Sr Jonathan Klein Primary Care Provider [phone] BARCLAYNIKKIE Referring Unavailabl e HOUSE, SR JONATHAN [...] Unavailable HOUSE, DR BASURTO Primary Care Unavailable ZICHRISS, DR PATTIE Nieves Consulting Unavailable LAKSHMIPATHY ., NARENDRANATH Admitting Nellie vailable LAKSHMIPATHY ., NARENDRONALDATH Attending Nellie vailable LAKSHMIPATHY ., BILLY Consulting Nellie vailable HOUSE, DR BASURTO Admitting Unavailable HOUSE, DR BASURTO Attending Unavailable WHEATON, DR BASURTO Primary Care Unavailable REKLAW, DR RYAN Guzman Consulting Unavailable HOUSE, DR [...] Consulting Unavailable PIERCE ., CRYS Trimble Unavailable HOUSE, [...] Unavailable Shaikh Connelly MD Primary Care Provider [phone] Vidal HIGGINS, Ijeoma Unavailable Jose Chandler MD Primary Care Provider ELIDA GARCIA Attending Unavailable SHAIKH CONNELLY Attending Unavailable SHAIKH CONNELLY Attending Unavailable SHAIKH CONNELLY Attending Unavailable SHAIKH CONNELLY Attending Unavailable IJEOMA DRAKE Attending UnavailSHAIKH Knott Attending Unavailable IJEOMA DRAKE Attending UnavailSIVAN Cruz Attending Unavailable IJEOMA DRAKE Referring Unavailcurtis stokes Medications Current Medications Medication Drug Class(es) Dates Sig (Normalized) Sig (Original) Aspir-81 81 MG (5 sources) take 1 tablet by mouth once daily Aspir-81 81 MG 1 tablet Orally Once a day Active aspirin 81 mg delayed release oral tablet (2 sources) Platelet Aggregation Inhibitor, Nonsteroidal Anti-inflammatory Drug Start: 01-12-2017 Aspirin (Kumar Low Dose Aspirin) 81 mg Tablet,Delayed Release (Dr/Ec) Active 81 MG PO Bedtime January 12, 2017 1:00am baclofen 20 mg oral tablet (8 sources) gamma-Aminobutyric Acid-ergic Agonist Start: 08-22-2023 take 1 tablet by mouth three times daily as needed for muscle spasms baclofen (Lioresal) 20 MG tablet Indications: Lumbar back pain Take 1 tablet (20 mg) by mouth 3 (three) times a day as needed for muscle spasms 90 tablet 2 08/22/2023 Active take 1 tablet by mouth at bedtim e baclofen (Lioresal) 10 MG tablet Take 10 mg by mouth at bedtime 0 Active chlorhexidine gluconate 40 mg/ml medicated liquid soap (1 source) Start: 02-25-2023 chlorhexidine (Hibiclens) 4 % external liquid Indications: [...] by mouth in the morning. 0 Active eletriptan 40 mg oral tablet (7 sources) Serotonin-1b and Serotonin-1d Receptor Agonist Start: 01-12-2017 Eletriptan (Relpax) 40 mg Tablet Active 40 MG PO January 12, 2017 1:00am take 1 tablet by alonso th every twenty-four hours Relpax 40 MG 1 tablet as needed one time Orally Once a day Active famotidine 20 mg oral tablet (10 sources) Histamine-2 Receptor Antagonist Start: 07-04-2023 End: 12-31-2023 take 1 tablet by mouth once daily famotidine (Pepcid) 20 MG tablet Indications: Gastroesophageal reflux disease without esophagitis Take 1 tablet (20 mg) by mouth Daily 90 tablet 1 07/04/2023 Active Start: 08-16-2021 take 1 tablet by alonso th once daily famotidine (PEPCID) 20 MG tablet TAKE 1 TABLET BY MOUTH EVERY DAY 0 08/16/2021 Active glimepiride 1 mg oral tablet (5 sources) Sulfonylurea Start: 09-03-2023 take 1 tablet by mouth once daily glimepiride (Amaryl) 1 MG tablet 1 mg 1/2 po every day 09/03/2023 Active Start: 06-05-2021 take 0.5 tablet by m outh once daily in the morning glimepiride (AMARYL) [...] 1:00am metFORMIN hydrochloride 500 mg oral tablet (15 sources) Biguanide Start: 08-05-2023 take 1 tablet by mouth in the morning metFORMIN (Glucophage) 500 MG tablet Indications: Type 2 diabetes mellitus with diabetic microalbuminuria, without long-term current use of insulin (CMS/[facility]) Take 1 tablet (500 mg) by mouth in the morning and 1 tablet (500 mg) in the evening. Take with meals. 180 tablet 08/05/2023 Active Start: 08-07-2021 metFORMIN (GLU COPHAGE) 500 MG tablet 1,000 mg in the morning and 1,000 mg in the evening. Take with meals. 0 08/07/2021 Active Start: 01-12-2017 take 500 mg by mouth twice daily Metformin Active 500 MG PO Twice daily [...] MG/DOSE) Active pregabalin 75 mg oral capsule (19 sources) Start: 11-02-19 24 End: 03-16-19 take 1 capsule by mouth in the [...] capsule (75 mg) before bedtime. 270 capsule 12/17/2023 03/16/2024 Active Start: 03-21-2023 End: 06-19-2023 take 1 capsule by mouth in the [...] day Active take [address] [facility] twice daily pregabalin (LYRICA) 50 MG capsule Lyrica 50 mg capsule Take 1 capsule twice a day by oral route. 0 Active Probiotic (5 sources) Probiotic Active raNITIdine 150 mg oral tablet (5 sources) Histamine-2 Receptor Antagonist take 1 tablet by mouth twice daily Ranitidine HCl 150 MG 1 Tablet Orally bid Active rizatriptan 10 mg oral tablet (9 sources) Serotonin-1b and Serotonin-1d Receptor Agonist Start: End: rizatriptan (Maxalt) 10 MG tablet Indications: Migraine with aura and without status migrainosus, not intractable (CMS/HCC) Take 1 tablet (10 mg) by mouth 1 (one) time if needed for migraine May repeat in 2 hours if unresolved. Do not exceed 30 mg in 24 hours. 9 tablet 12/17/2023 01/16/2024 Active Robaxin-750 750 MG (5 sources) take 1 tablet by mouth every four hours Robaxin-750 750 MG 1 tablet Orally every 4 hrs Active rosuvastatin calcium 20 mg oral tablet (11 sources) HMG-CoA Reductase Inhibitor Start: take 1 tablet by mouth once daily rosuvastatin (Crestor) 20 MG tablet Indications: Other hyperlipidemia (CMS/HCC) Take 1 tablet (20 mg) by mouth Daily 90 tablet 1 10/03/2023 Active take 1 tablet by alonso every twenty-four hours Crestor 20 MG 1 tablet Orally Once a day Active traZODone hydrochloride 50 mg oral tablet (1 source) Serotonin Reuptake Inhibitor Start: 08-17-2021 take 1 tablet by mouth once daily at bedtime traZODone (DESYREL) 50 MG tablet TAKE 1 TABLET BY MOUTH EVERY NIGHT AT BEDTIME 0 08/17/2021 Active divalproex sodium 500 mg delayed release oral tablet (16 sources) Mood Stabilizer, Anti-epileptic Agent Start: 07-04-2023 End: 12-31-2023 take 1 tablet by mouth in the morning divalproex (Depakote) 500 MG EC tablet Indications: Migraine with aura and without status migrainosus, not intractable (CMS/HCC) Take 1 tablet (500 mg) by mouth in the morning and 1 tablet (500 mg) before bedtime. Do not crush, chew, or split.. 180 tablet 1 07/04/2023 Active Start: 01-12-2017 take 1 tablet by alonso th twice daily Divalproex (Depakote Er) 500 mg Tablet Extended Release 24 Hr Active 500 MG PO Twice daily January 12, 2017 1:00am take 1 tablet by alonso th every twelve hours Depakote 500 mg 1 tablet Orally twice a day Active Vitamin C 500 MG (2 sources) Vitamin C 500 MG Orally Active Completed/Discontinued Medications Medication Drug Class(es) Dates Sig (Normalized) Sig (Original) acetaminophen 325 mg / oxyCODONE hydrochloride 5 mg oral tablet (14 sources) Opioid Agonist Start: 07-20-2022 End: 12-31-2023 take 1 tablet by mouth once daily oxyCODONE-acetamino phen (Percocet) 5-325 MG tablet Take 1 tablet by mouth Daily 07/20/2022 12/31/2023 Discontinued (Med list cleanup) Start: 01-12-2017 Oxycodone-Acet aminophen (Percocet) 10-325 mg Tablet Active 1 TAB [...] Active alendronic acid 70 mg oral tablet (15 sources) Bisphosphonate Start: 07-04-2023 End: 12-31-2023 take 1 tablet by mouth in the morning alendronate (Fosamax) 70 MG tablet Indications: Osteoporosis, unspecified osteoporosis type, unspecified pathological fracture presence (CMS/HCC) Take 1 tablet (70 mg) by mouth every 7 (seven) days Take in the morning with a full glass of water, on an empty stomach, and do not take anything else by mouth or lie down for the next 30 min. 12 tablet 1 07/04/2023 12/31/2023 Discontinued (Med list cleanup) Start: 08-17-2021 take 1 tablet by mouth once al endronate (FOSAMAX) 70 MG tablet TAKE 1 TABLET [...] 0 Active allopurinol 300 mg oral tablet (15 sources) Xanthine Oxidase Inhibitor Start: 07-04-2023 End: 12-31-2023 take 1 tablet by mouth once daily allopurinol (Zyloprim) 300 MG tablet Indications: Hyperuricemia Take 1 tablet (300 mg) by mouth Daily 90 tablet 1 07/04/2023 12/31/2023 take 1 tablet by alonso th every twenty-four hours Allopurinol 300 MG 1 tablet Orally Once a day Active ALLOPURINOL PO T karolyn by mouth 0 Active ascorbic acid 100 mg oral tablet (5 [...] every day by oral route. 0 Active clindamycin 10 mg/ml topical lotion (8 sources) Lincosamide Antibacterial Start: 02-25-2023 End: 12-31-2023 clindamycin (Cleocin T) 1 % lotion Indications: Hidradenitis suppurativa Apply thin later to affected areas on the body every day during flares, 30 day supply 60 mL 11 02/25/2023 12/31/2023 Discontinued (Med list cleanup) colchicine 0.6 mg oral tablet (14 sources) Start: 12-18-2023 End: 12-31-2023 colchicine 0.6 MG tablet Indications: Gout, unspecified cause, unspecified chronicity, unspecified site TAKE 2 TABLETS BY MOUTH AT ONSET OF ACUTE GOUT, MAY TAKE 1 TABLET IN 1 HOURS. NO MORE THAN 3 TABLETS DAILY 30 tablet 12/18/2023 12/31/2023 Discontinued (Med list cleanup) Start: 11-04-2023 End: 12-18-2023 colchicine 0.6 MG tablet Ind ications: Gout, unspecified cause, unspecified chronicity, unspecified site Take 1 tablet (0.6 mg) by mouth See administration instructions TAKE 2 TABLETS BY MOUTH AT ONSET OF ACUTE GOUT, MAY TAKE 1 TABLET IN HOUR. NO MORE THAN 3 TABLETS IN ONE DAY 30 tablet 11/04/2023 12/18/2023 Discontinued Start: 03-06-2023 colchicine 0.6 MG tablet Indications: Gout, unspecified [...] sodium 75 mg delayed release oral tablet (15 sources) Nonsteroidal Anti-inflammatory Drug Start: 07-04-2023 End: 12-31-2023 take 1 tablet by mouth once in the morning diclofenac (Voltaren) 75 MG EC tablet Indications: Back spasm , Closed fracture of proximal end of left fibula with routine healing, unspecified fracture morphology, subsequent encounter , Closed nondisplaced fracture of second metatarsal bone of left foot with routine healing, subsequent encounter Take 1 tablet (75 mg) by mouth in the morning and 1 tablet (75 mg) before bedtime. Do not crush, chew, or split.. 180 tablet 1 07/04/2023 12/31/2023 Start: 08-07-2021 take 1 tablet by alonso th twice daily diclofenac (VOLTAREN) 75 MG EC tablet TAKE 1 TABLET BY MOUTH TWICE DAILY 0 08/07/2021 Active Voltaren Active furosemide 20 mg oral tablet (7 sources) Loop Diuretic Start: 08-05-2023 End: 02-01-2024 take 1 tablet by mouth once daily as needed for edema furosemide (Lasix) 20 MG tablet Indications: Bilateral lower extremity edema Take 1 tablet (20 mg) by mouth Daily as needed (Lower extremity Edema) 90 tablet 1 08/05/2023 12/31/2023 Discontinued (Med list cleanup) indomethacin 50 mg oral capsule (1 source) [...] 12, 2017 1:00am January 15, 2017 2:23pm Stecclzavenm-Fr-Cf on-Minerals (Multiple Vitamin, Womens) Tablet (1 source) Start: 01-12-2017 End: 01-15-2017 Oyytpmzibnkx-Vu-Zu on-Minerals (Multiple Vitamin, Womens) Tablet Discontinued PO Daily January 12, 2017 1:00am January 15, 2017 2:23pm semaglutide (Ozempic, 1 MG/DOSE,) 4 MG/3ML solution pen-injector (8 sources) Start: 10-03-2023 End: 12-31-2023 inject 1 mg by subcutaneous injection every week semaglutide (Ozempic, 1 MG/DOSE,) 4 MG/3ML solution pen-injector Indications: Type 2 diabetes mellitus without complication, without long-term current use of insulin (CMS/HCC) Inject 1 mg under the skin 1 (one) time per week 9 mL 1 10/03/2023 12/31/2023 Discontinued (Med list cleanup) Start: 10-03-2023 End: 01-01-2024 inject 1 mg by subcutaneous injection every week semaglutide (Ozempic, 1 MG/DOSE,) 4 MG/3ML solution pen-injector Indications: Type 2 diabetes mellitus without complication, without long-term current use of insulin (CMS/HCC) Inject 1 mg under the skin 1 (one) time per week 9 mL 1 10/03/2023 01/01/2024 Active Start: 01-29-2023 End: 04-29-2023 inject 1 mg by subcutaneous injection every week semaglutide (Ozempic, 1 MG/DOSE,) 4 MG/3ML solution pen-injector Indications: Type 2 diabetes mellitus without complication, without long-term current use of insulin ([facility]) Inject 1 mg under the skin 1 (one) time per week 9 mL 0 01/29/2023 04/29/2023 Active triamcinolone acetonide 40 mg/ml injectable suspension (3 sources) Corticosteroid Start: 03-19-2023 Kenalog-40 Mar, 20 mg Start: 01-23-2023 Kenalog-40 Jan, 30 mg Problems Active Problems Problem Classification Problem Date Documented Date Episodic/Chronic Acute and unspecified renal failure (1 source) Acute renal failure syndrome; Translations: [Acute kidney failure, unspecified] 01-23-2023 Episodic Diabetes mellitus with complications (12 sources) Polyneuropathy due to type 2 diabetes mellitus; Translations: [Type 2 diabetes mellitus with diabetic polyneuropathy] Onset: 01-29-2023 03-21-2023 Chronic Diabetes mellitus without complication (7 sources) Type 2 diabetes mellitus without complications; Translations: [Type 2 diabetes mellitus without complication] Onset: 07-05-2021 Chronic Disorders of lipid metabolism (10 sources) Hyperlipidemia; Translations: [Other hyperlipidemia] Onset: 05-02-2023 05-02-2023 Chronic Essential hypertension (12 sources) Essential (primary) hypertension; Translations: [Hypertensive disorder] Onset: 04-16-2022 01-13-2017 Chronic Genitourinary symptoms and ill-defined conditions (10 sources) Incontinence; Translations: [Mixed incontinence] Onset: 10-03-2023 10-03-2023 Chronic Genitourinary symptoms and ill-defined conditions (6 sources) Increased frequency of urination; Translations: [Frequency of micturition] Onset: 12-30-2023 12-30-2023 Episodic Gout and other crystal arthropathies (12 sources) Gout; Translations: [Gout, unspecified] Chronic Headache; including migraine (9 sources) Migraine with aura; Translations: [Migraine with aura, not intractable, without status migrainosus] Onset: 05-02-2023 12-17-2023 Chronic Miscellaneous mental health disorders (2 sources) Primary insomnia; Translations: [Primary insomnia] 12-31-2023 Chronic Osteoarthritis (7 sources) Bilateral primary osteoarthritis [...] Translations: [Restless legs syndrome] 01-23-2023 Chronic Other lower respiratory disease (12 sources) Snoring; Translations: [Snoring] Onset: 10-03-2023 10-03-2023 Episodic Other nervous system disorders (1 source) Other chronic pain; Translations: [OTHER CHRONIC PAIN] Onset: 06-08-2022 Chronic Other nervous system disorders (1 source) Numbness of face; Translations: [Anesthesia of skin] 01-23-2023 Episodic Other non-traumatic joint disorders (4 sources) Pain in right wrist Episodic Other nutritional; endocrine; and metabolic disorders (6 sources) Hypercalcemia; Translations: [Hypercalcemia] 01-23-2023 Chronic Other nutritional; endocrine; and metabolic disorders (8 sources) Obesity caused by energy imbalance; Translations: [Morbid (severe) obesity due to excess calories] Onset: 05-02-2023 05-02-2023 Chronic Other nutritional; endocrine; and metabolic disorders (8 sources) Body mass index 40+ - severely obese; Translations: [Body mass index (BMI) 40.0-44.9, adult] Onset: 05-02-2023 05-02-2023 Chronic Residual codes; unclassified (4 sources) Obstructive sleep apnea syndrome; Translations: [Obstructive sleep apnea (adult) (pediatric)] 12-31-2023 Chronic Residual codes; unclassified (2 sources) Hypersomnia; Translations: [Hypersomnia, unspecified] 12-31-2023 Chronic Residual codes; unclassified (2 sources) Tobacco user; Translations: [Tobacco use] 12-31-2023 Episodic Spondylosis; intervertebral disc disorders; other back problems (11 sources) Spondylosis without myelopathy or radiculopathy, lumbar region; Translations: [Spondylosis without myelopathy or radiculopathy, lumbosacral region] Onset: 07-19-2021 Chronic Unclassified (4 sources) LOW BACK PAIN, UNSPECIFIED; Translations: [LOW BACK PAIN, UNSPECIFIED] Onset: 06-23-2021 Past or Other Problems Problem Classification Problem Date Documented Da te Episodic/Chronic Fracture of lower limb (16 sources) Metatarsal bone fracture; Translations: [Fracture of unspecified metatarsal bone(s), unspecified foot, initial encounter for closed fracture] Onset: 07-04-2023 07-04-2023 Episodic Other aftercare (8 sources) Post-discharge follow-up; Translations: [Encounter for follow-up examination after completed treatment for conditions other than malignant neoplasm] Onset: 07-04-2023 07-04-2023 Episodic Other and unspecified benign neoplasm (8 sources) Melanocytic nevus of trunk; Translations: [Melanocytic nevi of trunk] Onset: 05-02-2023 05-02-2023 Episodic Other connective tissue disease (4 sources) Other [...] HAND FINGERS INIT] Onset: 11-16-2021 Episodic Other non-epithelial cancer of skin (9 sources) Basal cell carcinoma of nose; Translations: [Basal cell carcinoma of skin of nose] Onset: 01-29-2023 01-29-2023 Episodic Other non-traumatic joint disorders (4 sources) Pain in left knee; Translations: [PAIN IN LEFT KNEE] Onset: 02-16-2022 Episodic Other screening for suspected conditions (not mental disorders or infectious disease) (19 sources) Patient encounter status; Translations: [Encounter for screening for malignant neoplasm of cervix] Onset: 01-29-2023 Episodic Other upper respiratory infections (9 sources) Acute upper respiratory infection; Translations: [Acute upper respiratory infection, unspecified] Onset: 01-29-2023 01-29-2023 Episodic Residual codes; unclassified (8 sources) Bilateral lower limb edema; Translations: [Localized edema] Onset: 08-05-2023 08-05-2023 Episodic Spondylosis; intervertebral disc disorders; other back problems (18 sources) Muscle spasm of back; Translations: [Sacrococcygeal disorders, not elsewhere classified] Onset: 07-05-2021 07-04-2023 Episodic Unclassified (1 source) LOW BACK PAIN, UNSPECIFIED; Translations: [LOW BACK PAIN, UNSPECIFIED] Onset: 06-20-2021 Results Test Name Value Interpretation Reference Range Facility ALL CBC WITH AUTO DIFFon BASOPHILS ABSOLUTE AUTO 0.1 [facility] Basophils/100 WBC (Bld) 0.4 % 0.2 - 2.0 % [facility] Eosinophils/100 WBC (Bld) 3.2 % 0.9 - 7.0 % [facility] Erythrocyte distribution width (RBC) [Ratio] 15.6 % High 11.0 - 15.0 % [facility] Hematocrit (Bld) [Volume fraction] 42.4 % 36.0 - 48.0 % [facility] [Mass/Vol] 13.9 g/dL 12.0 - 16.0 g/dL [facility] IMMATURE GRANULOCYTES ABS AUTO 0.[address] [facility] Immature granulocytes/100 WBC (Bld) 0.7 % High 0.0 - 0.5 % [facility] Interpretation and review of laboratory results Abnormal [facility] LYMPHOCYTES ABSOLUTE AUTO 3.5 [facility] Lymphocytes/100 WBC (Bld) 27.7 % 20.5 - 60.0 % [facility] MCH (RBC) [Entitic mass] 31.4 pg 26.7 - 34.[address] [facility] MCHC (RBC) [Mass/Vol] 32.8 g/dL 29.9 - 35.2 g/dL [facility] MCV (RBC) [Entitic vol] 95.7 fL 81.0 - 99.[address] [facility] MONOCYTES ABSOLUTE AUTO 0.[address] [facility] Monocytes/100 WBC (Bld) 7.4 % 1.7 - 12.0 % [facility] NEUTROPHILS ABSOLUTE AUTO 7.[address] [facility] Neutrophils/100 WBC (Bld) 60.6 % 43.0 - 75.0 % [facility] Platelet mean volume (Bld) [Entitic vol] 10.9 fL 9.5 - 13.5 fL [facility] EO # 0.4 [facility] PLT 219 [facility] RBC 4.43 [facility] WBC 12.8 High [facility] XR LSPINE 2_3 VIEWSon 2022 XR LSPINE [...] PATTIE SALTER Date: 2022-06-07 11:15 Normal [facility] CBC AUTO DIFFon 04-12-2022 BASO # 0.1 103/ul Normal 0.0-0.1 [facility] Comment on above: Performed By: #### C BC ####[facility] [address] [place] [address]Dr. Ricky Valenzuela Basophils/100 WBC (Bld) 0.5 % Normal 0.2-2.0 [facility] Comment on above: Performed By: #### C BC ####[facility] [address] [place] [id number]. Ricky Valenzuela EO # 0.3 103/ul Normal 0.0-0.7 [facility] Comment on above: Performed By: #### C BC ####[facility] [address] [place] [address]Dr. Ricky Valenzuela Eosinophils/100 WBC (Bld) 3.0 % Normal 0.9-7.0 [facility] Comment on above: Performed By: #### C BC ####[facility] [address] [place] [address]Dr. Ricky Valenzuela Erythrocyte distribution width (RBC) [Ratio] 14.8 % Normal 11.0-15.0 [facility] Comment on above: Performed By: #### C BC ####[facility] [address] [place], [place] [address]Dr. Ricky Valenzuela Hematocrit (Bld) [Volume fraction] 40.6 % Normal 36.0-48.0 [facility] Comment on above: Performed By: #### C BC ####[facility] [address] [place], [place] [address]Dr. Ricky Valenzuela Hemoglobin (Bld) [Mass/Vol] 13.5 g/dL Normal 12.0-16.0 [facility] Comment on above: Performed By: #### C BC ####[facility] [address] [place], [place] [address]Dr. Ricky Valenzuela IG # 0.16 10e3/ul Critically high 0.00-0.03 [facility] Comment on above: Performed By: #### C BC ####[facility] [address] [place], [place] [address]Dr. Ricky Valenzuela IG % 1.4 % Critically high 0.0-0.5 [facility] Comment on above: Performed By: #### C BC ####[facility] [address] [place], [place] [address]Dr. Ricky Valenzuela LYMPH # 3.4 103/ul Normal 1.2-3.8 [facility] Comment on above: Performed By: #### C BC ####[facility] [address] [place], [place] [address]Dr. Ricky Valenzuela Lymphocytes/100 WBC (Bld) 30.4 % Normal 20.5-60.0 [facility] Comment on above: Performed By: #### C BC ####[facility] [address] [place], [place] [address]Dr. Ricky Valenzuela MANUAL DIFF REQ NO Normal [facility] Comment on above: Performed By: #### C BC ####[facility] [address] [place] [id number]. Ricky Valenzuela MCH (RBC) [Entitic mass] 31.8 pg Normal 26.7-34.0 [facility] Comment on above: Performed By: #### C BC ####[facility] [address] [place] [id number]. Ricky Valenzuela MCHC (RBC) [Mass/Vol] 33.3 g/dL Normal 29.9-35.2 [facility] Comment on above: Performed By: #### C BC ####[facility] [address] [place] [id number]. Ricky Nicolas MCV (RBC) [Entitic vol] 95.5 fL Normal 81.0-99.0 [facility] Comment on above: Performed By: #### C BC ####[facility] [address] [place], [place] [address]Dr. Ricky Valenzuela MONO # 0.9 103/ul Critically high 0.3-0.8 [facility] Comment on above: Performed By: #### C BC ####[facility] [address] [place], [place] [address]Dr. Lesleysharron Valenzuela Monocytes/100 WBC (Bld) 7.7 % Normal 1.7-12.0 [facility] Comment on above: Performed By: #### C BC ####[facility] [address] [place], [place] [address]Dr. Ricky Valenzuela NEUT # 6.3 103/ul Normal 1.4-6.5 [facility] Comment on above: Performed By: #### C BC ####[facility] [address] [place], [place] [id number]. Ricky Valenzuela Neutrophils/100 WBC (Bld) 57.0 % Normal 43.0-75.0 [facility] Comment on above: Performed By: #### C BC ####[facility] [address] [place] [phone]. Ricky Valenzuela Platelet mean volume (Bld) [Entitic vol] 9.8 fL Normal 9.5-13.5 [facility] Comment on above: Performed By: #### C BC ####[facility] [address] [place], [place] [address]Tp. Lesleysharron Nicolas PLT 246 103/ul Normal 150-450 [facility] Comment on above: Performed By: #### C BC ####[facility] [address] [place], [place] [address]Kt. Ricky Valenzuela RBC 4.25 106/ul Normal 4.20-5.40 [facility] [facility] Comment on above: Performed By: #### C BC ####[facility] [id number] [place] [id number]. Ricky Valenzuela WBC 11.1 103/ul Critically high 4.0-11.0 [facility] Comment on above: Performed By: #### C BC ####[facility] [id number] [place] [address]Dr. Ricky Valenzuela GLYCOHEMOGLOBIN A1Con 2022 ADA RECOMMENDATION SEE BELOW Normal [facility] Comment on above: Result Comment: ADA RECOMMENDED LIMIT 4.0 - 6.0 ADA THERAPEUTIC TARGET < 7.0 ACTION SUGGESTED > 7.0 Performed By: #### A 1C ####[facility] [id number] [place] [address]DrPasquale Valenzuela Glucose [Mass/Vol] 160 mg/dL Normal [facility] Comment on above: Performed By: #### A 1C ####[facility] [id number] [place] [id number] Valenzuela HbA1c (Bld) [Mass fraction] 7.2 % Critically high 4.5-6.2 [facility] Comment on above: Performed By: #### A 1C ####[facility] [address] [place] [id number] Valenzuela MICROALBUMIN, RAND URon mALB <1.3 Normal <=30.0 [facility] Comment on above: Performed By: #### M ALBR #### [facility] [address] [place], [place] [address] Dr. Ricky Valenzuela PROF 14(COMP METB)on 023 Albumin [Mass/Vol] 3.3 g/dL Critically low 3.4-5.0 Th e [facility] Comment on above: Performed By: #### C MP #### [facility] [address] [place] [address] Dr. Ricky Valenzuela Albumin/Globulin [Mass ratio] 0.9 {ratio} Normal [facility] Comment on above: Performed By: #### C MP #### [facility] [address] [place] [address] [address] Ricky Valenzuela ALP [Catalytic activity/Vol] 90 U/L Normal 46-116 [facility] Comment on above: Performed By: #### C MP #### [facility] [address] [place] [address] Dr. Ricky Valenzuela ALT [Catalytic activity/Vol] 42 U/L Normal 14-59 [facility] Comment on above: Performed By: #### C MP #### [facility] [address] [place] [address] Dr. Ricky Valenzuela Anion gap [Moles/Vol] 10.1 mmol/L Normal [facility] Comment on above: Performed By: #### C MP #### [facility] [address] [place] [address] Dr. Ricky Valenzuela AST [Catalytic activity/Vol] 21 U/L Normal 15-37 [facility] Comment on above: Performed By: #### C MP #### [facility] [address] [place] [address] Dr. Ricky Valenzuela Bilirubin [Mass/Vol] 0.3 mg/dL Normal 0.2-1.0 [facility] Comment on above: Performed By: #### C MP #### [facility] [address] [place] [address] Dr. Ricky Valenzuela Calcium [Mass/Vol] 9.8 mg/dL Normal 8.5-10.1 [facility] Comment on above: Performed By: #### C MP #### [facility] [address] [place] [address] Dr. Ricky Valenzuela Chloride [Moles/Vol] 99 mmol/L Normal 98-107 [facility] Comment on above: Performed By: #### C MP #### [facility] [address] [place] [address] [address] Ricky Valenzuela CO2 [Moles/Vol] 33.7 mmol/L Critically high 21.0-32.0 [facility] Comment on above: Performed By: #### C MP #### [facility] [address] [place] [address] [address] Ricky Valenzuela Creatinine [Mass/Vol] 0.94 mg/dL Normal 0.55-1.02 [facility] Comment on above: Performed By: #### C MP #### [facility] [address] [place] [address] Dr. Ricky Valenzuela EGFR-AF [place] >60 Normal >=60 [facility] Comment on above: Performed By: #### C MP #### [facility] [address] [place] [address] Dr. Ricky Vaelnzuela EGFR-NON AF [place]IZEN [place] >60 Normal >=60 [facility] Comment on above: Performed By: #### C MP #### [facility] [address] [place] [address] Dr. Ricky Valenzuela Globulin (S) [Mass/Vol] 3.8 g/dL Normal [facility] Comment on above: Performed By: #### C MP #### [facility] [address] [place] [address] Dr. Ricky Valenzuela Glucose [Mass/Vol] 168 mg/dL Critically high 74-106 [facility] Comment on above: Performed By: #### C MP #### [facility] [address] [place] [address] [address] Ricky Valenzuela Potassium [Moles/Vol] 4.8 mmol/L Normal 3.5-5.1 [facility] Comment on above: Performed By: #### C MP #### [facility] [address] [place] [address] [address] Ricky Valenzuela Protein [Mass/Vol] 7.1 g/dL Normal 6.4-8.2 [facility] Comment on above: Performed By: #### C MP #### [facility] [address] [place], [place] [address] Dr. Ricky Valenzuela Sodium [Moles/Vol] 138 mmol/L Normal 136-145 [facility] Comment on above: Performed By: #### C MP #### [facility] [address] [place], [place] [address] Dr. Ricky Valenzuela Urea nitrogen [Mass/Vol] 22.0 mg/dL Critically high 7.0-18.0 [facility] Comment on above: Performed By: #### C MP #### [facility] [address] [place], [place] [address] Dr. Ricky Valenzuela Urea nitrogen/Creatinine [Mass ratio] 23.4 mg/mg Normal [facility] Comment on above: Performed By: #### C MP #### [facility] [address] [place] [address] [address] Ricky Valenzuela Cytologyon 08-30-2021 Cytology (NOTE) INTERPRETATION Vaginal material, (ThinPrep vial, Imaging-assisted review): Specimen Adequacy: Satisfactory for evaluation. Descriptive Diagnosis: Negative for intraepithelial lesion or malignancy. Transitional Living Specialist: CLARK Delacruz(ASCP) Electronically Signed Out zackary/09/07/2021 Source: A: Vaginal material, (ThinPrep vial, Imaging-assisted review) Clinical History Hysterectomy Surgery: Salpingostomy; Ovary removal Z12.4 Encounter for screening for malignant neoplasm of cervix GYNECOLOGIC CYTOLOGY REPORT Patient Name: KARINA DE OLIVEIRA [facility] Rec: [id number] Path Number: [id number] [facility] [address] [place] [id number] Normal [facility] Comment on above: Performed By: #### P PPVP #### [facility] [employer] [address] [place] [id number] Mirror Installer: Luca Cummins MD CBC AUTO DIFFon 08-09-2021 BASO # 0.1 103/ul Normal 0.0-0.1 [facility] Comment on above: Performed By: #### C BC #### [facility] [address] [place] [address] [address] Ricky Valenzuela Basophils/100 WBC (Bld) 0.8 % Normal 0.2-2.0 [facility] Comment on above: Performed By: #### C BC #### [facility] [address] [place] [address] [address] Ricky Valenzuela EO # 0.2 103/ul Normal 0.0-0.7 [facility] Comment on above: Performed By: #### C BC #### [facility] [address] [place] [address] [address] Ricky Valenzuela Eosinophils/100 WBC (Bld) 2.1 % Normal 0.9-7.0 [facility] Comment on above: Performed By: #### C BC #### [facility] [address] [place] [address] Dr. Ricky Valenzuela Erythrocyte distribution width (RBC) [Ratio] 15.2 % Critically high 11.0-15.0 [facility] Comment on above: Performed By: #### C BC #### [facility] [address] [place] [address] [address] Ricky Valenzuela Hematocrit (Bld) [Volume fraction] 41.5 % Normal 36.0-48.0 [facility] Comment on above: Performed By: #### C BC #### [facility] [address] [place] [address] Dr. Ricky Valenzuela Hemoglobin (Bld) [Mass/Vol] 13.5 g/dL Normal 12.0-16.0 [facility] Comment on above: Performed By: #### C BC #### [facility] [address] [place] [address] [address] Ricky Valenzuela IG # 0.42 10e3/ul Critically high 0.00-0.03 [facility] Comment on above: Performed By: #### C BC #### [facility] [address] [place] [address] [address] Ricky Valenzuela IG % 3.8 % Critically high 0.0-0.5 [facility] Comment on above: Performed By: #### C BC #### [facility] [address] [place] [address] [address] Ricky Valenzuela LYMPH # 3.3 103/ul Normal 1.2-3.8 [facility] Comment on above: Performed By: #### C BC #### [facility] [address] [place] [address] Dr. Ricky Valenzuela Lymphocytes/100 WBC (Bld) 29.1 % Normal 20.5-60.0 [facility] Comment on above: Performed By: #### C BC #### [facility] [address] [place] [address] Dr. Ricky Valenzuela MANUAL DIFF REQ NO Normal [facility] Comment on above: Performed By: #### C BC #### [facility] [address] [place] [address] Dr. Ricky Valenzuela MCH (RBC) [Entitic mass] 32.4 pg Normal 26.7-34.0 [facility] Comment on above: Performed By: #### C BC #### [facility] [address] [place] [address] Dr. Ricky Valenzuela MCHC (RBC) [Mass/Vol] 32.5 g/dL Normal 29.9-35.2 [facility] Comment on above: Performed By: #### C BC #### [facility] [address] [place] [address] Dr. Ricky Valenzuela MCV (RBC) [Entitic vol] 99.5 fL Critically high 81.0-99.0 [facility] Comment on above: Performed By: #### C BC #### [facility] [address] [place] [address] Dr. Ricky Valenzuela MONO # 0.8 103/ul Normal 0.3-0.8 [facility] Comment on above: Performed By: #### C BC #### [facility] [address] [place] [address] Dr. Ricky Valenzuela Monocytes/100 WBC (Bld) 7.5 % Normal 1.7-12.0 [facility] Comment on above: Performed By: #### C BC #### [facility] [address] [place], [place] [id number] Dr. Ricky Valenzuela NEUT # 6.3 103/ul Normal 1.4-6.5 [facility] Comment on above: Performed By: #### C BC #### [facility] [address] [place] [address] [address] Ricky Valenzuela Neutrophils/100 WBC (Bld) 56.7 % Normal 43.0-75.0 [facility] Comment on above: Performed By: #### C BC #### [facility] [address] [place] [address] [address] Ricky Valenzuela Platelet mean volume (Bld) [Entitic vol] 9.8 fL Normal 9.5-13.5 [facility] Comment on above: Performed By: #### C BC #### [facility] [address] [place] [address] [address] Ricky Valenzuela PLT 265 103/ul Normal 150-450 [facility] Comment on above: Performed By: #### C BC #### [facility] [address] [place] [address] [address] Ricky Valenzuela RBC 4.17 106/ul Critically low 4.20-5.40 [facility] Comment on above: Performed By: #### C BC #### [facility] [address] [place] [address] [address] Ricky Valenzuela WBC 11.2 103/ul Critically high 4.0-11.0 [facility] Comment on above: Performed By: #### C BC #### [facility] [address] [place] [address] [address] Ricky Valenzuela GLYCOHEMOGLOBIN A1Con 2021 ADA RECOMMENDATION SEE BELOW Normal [facility] Comment on above: Result Comment: ADA RECOMMENDED LIMIT 4.0 - 6.0 ADA THERAPEUTIC TARGET < 7.0 ACTION SUGGESTED > 7.0 Performed By: #### A 1C ####[facility] [id number] [place] [address]Dr. Ricky Valenzuela Glucose [Mass/Vol] 183 mg/dL Normal [facility] Comment on above: Performed By: #### A 1C ####[facility] [address] [place], [place] [address]LuDr. Ricky Valenzuela HbA1c (Bld) [Mass fraction] 8.0 % Critically high 4.5-6.2 [facility] Comment on above: Performed By: #### A 1C ####[facility] [address] [place], [place] [address]PeDr. Ricky Valenzuela LIPID PROFILEon 08-09-2021 CHOL-HDL RATIO NORM SEE BELOW Normal [facility] Comment on above: Result Comment: 3.3 - 4.4 LOW RISK 4.4 - 7.1 AVERAGE RISK 7.1 - 11.0 MODERATE RISK >11.0 HIGH RISK Performed By: #### C MP, LIPID #### [facility] [address] [place] [address] [address] Ricky Valenzuela Cholesterol [Mass/Vol] 239 mg/dL Critically high <=200 [facility] Comment on above: Performed By: #### C MP, LIPID #### [facility] [address] [place] [address] [address] Ricky Valenzuela Cholesterol in HDL [Mass/Vol] 36 mg/dL Critically low 40-60 [facility] Comment on above: Performed By: #### C MP, LIPID #### [facility] [address] [place] [address] [address] Ricky Valenzuela Cholesterol in LDL [Mass/Vol] 164.2 mg/dL Normal [facility] Comment on above: Performed By: #### C MP, LIPID #### [facility] [address] [place] [address] [address] Ricky Valenzuela Cholesterol.total/Ch olesterol in HDL [Mass ratio] 6.6 {ratio} Normal [facility] Comment on above: Performed By: #### C MP, LIPID #### [facility] [address] [place] [address] [address] Ricky Valenzuela HDL NORMAL > or = 60 mg/dl - LOW CARDIOVASCULAR RISK <40 mg/dl - HIGH CARDIOVASCULAR RISK Normal [facility] Comment on above: Performed By: #### C MP, LIPID #### [facility] [address] [place] [address] [address] Ricky Valenzuela LDL CALC NORMAL SEE BELOW Normal [facility] Comment on above: Result Comment: <100 mg/dl OPTIMAL 100 - 129 mg/dl NEAR OR ABOVE OPTIMAL 130 - 159 mg/dl BORDERLINE HIGH 160 - 189 mg/dl HIGH >190 mg/dl VERY HIGH Performed By: #### C MP, LIPID #### [facility] [address] [place] [address] [address] Ricky Valenzuela Triglyceride [Mass/Vol] 194 mg/dL Critically high <=150 [facility] Comment on above: Performed By: #### C MP, LIPID #### [facility] [address] [place] [address] [address] Ricky Valenzuela VLDL CALC 38.8 mg/dL Normal [facility] Comment on above: Performed By: #### C MP, LIPID #### [facility] [address] [place] [address] [address] Ricky Valenzuela MICROALBUMIN, RAND URon 07-13 mALB 13.1 mg/L Normal <=30.0 [facility] Comment on above: Performed By: #### M ALBR ####[facility] [address] [place], [place] [address]WkDr. Ricky Valenzuela PROF 14(COMP METB)on 022 Albumin [Mass/Vol] 3.3 g/dL Critically low 3.4-5.0 [facility] Comment on above: Performed By: #### C MP, LIPID #### [facility] [address] [place] [address] [address] Ricky Valenzuela Albumin/Globulin [Mass ratio] 0.8 {ratio} Normal [facility] Comment on above: Performed By: #### C MP, LIPID #### [facility] [address] [place] [address] [address] Ricky Valenzuela ALP [Catalytic activity/Vol] 93 U/L Normal 46-116 [facility] Comment on above: Performed By: #### C MP, LIPID #### [facility] [address] [place] [address] [address] Ricky Valenzuela ALT [Catalytic activity/Vol] 37 U/L Normal 14-59 [facility] Comment on above: Performed By: #### C MP, LIPID #### [facility] [address] [place] [address] [address] Ricky Valenzuela Anion gap [Moles/Vol] 10.9 mmol/L Normal [facility] Comment on above: Performed By: #### C MP, LIPID #### [facility] [address] [place] [address] [address] Ricky Valenzuela AST [Catalytic activity/Vol] 10 U/L Critically low 15-37 [facility] Comment on above: Performed By: #### C MP, LIPID #### [facility] [address] [place] [address] [address] Ricky Valenzuela Bilirubin [Mass/Vol] 0.2 mg/dL Normal 0.2-1.0 [facility] Comment on above: Performed By: #### C MP, LIPID #### [facility] [address] [place] [address] [address] Ricky Valenzuela Calcium [Mass/Vol] 9.0 mg/dL Normal 8.5-10.1 [facility] Comment on above: Performed By: #### C MP, LIPID #### [facility] [address] [place] [address] [address] Ricky Valenzuela Chloride [Moles/Vol] 100 mmol/L Normal 98-107 [facility] Comment on above: Performed By: #### C MP, LIPID #### [facility] [address] [place] [address] [address] Ricky Valenzuela CO2 [Moles/Vol] 32.2 mmol/L Critically high 21.0-32.0 [facility] Comment on above: Performed By: #### C MP, LIPID #### [facility] [address] [place] [address] [address] Ricky Valenzuela Creatinine [Mass/Vol] 0.95 mg/dL Normal 0.55-1.02 [facility] Comment on above: Performed By: #### C MP, LIPID #### [facility] [address] [place] [address] [address] Ricky Valenzuela EGFR-AF [place] >60 Normal >=60 [facility] Comment on above: Performed By: #### C MP, LIPID #### [facility] [address] [place] [address] [address] Ricky Valenzuela EGFR-NON AF [place] >60 Normal >=60 [facility] Comment on above: Performed By: #### C MP, LIPID #### [facility] [address] [place] [address] [address] Ricky Valenzuela Globulin (S) [Mass/Vol] 4.2 g/dL Normal [facility] Comment on above: Performed By: #### C MP, LIPID #### [facility] [address] [place] [address] [address] Ricky Valenzuela Glucose [Mass/Vol] 200 mg/dL Critically high 74-106 [facility] Comment on above: Performed By: #### C MP, LIPID #### [facility] [address] [place] [address] Dr. Ricky Valenzuela Potassium [Moles/Vol] 4.1 mmol/L Normal 3.5-5.1 [facility] Comment on above: Performed By: #### C MP, LIPID #### [facility] [address] [place] [address] [address] Ricky Valenzuela Protein [Mass/Vol] 7.5 g/dL Normal 6.4-8.2 [facility] Comment on above: Performed By: #### C MP, LIPID #### [facility] [address] [place] [address] Dr. Ricky Valenzuela Sodium [Moles/Vol] 139 mmol/L Normal 136-145 [facility] Comment on above: Performed By: #### C MP, LIPID #### [facility] [address] [place] [address] [address] Ricky Valenzuela Urea nitrogen [Mass/Vol] 13.0 mg/dL Normal 7.0-18.0 [facility] Comment on above: Performed By: #### C MP, LIPID #### [facility] [address] [place] [address] [address] Ricky Valenzuela Urea nitrogen/Creatinine [Mass ratio] 13.7 mg/mg Normal [facility] Comment on above: Performed By: #### C MP, LIPID #### [facility] [address] [place] [address] [address] Ricky Valenzuela POINT OF CARE GLUCOSEon 06-12 Glucose [Mass/Vol] 176 mg/dL Critically high 74-106 [facility] Comment on above: Performed By: #### P OCGLUC #### [facility] [address] [place] [address] [address] Ricky Valenzuela Vital Signs Date Time Vital Sign Value Performing Clinician Faci lity 12-31-2023 10:06-0500 Body height 157.5 cm Sivan Solo DO Work Phone: [facility] 12-31-2023 10:06-0500 Body mass index (BMI) [Ratio] 39.14 kg/m2 Sivan Solo DO Work Phone: [facility] 12-31-2023 10:06-0500 Body weight 97.07 kg Sivan Solo DO Work Phone: [facility] 12-31-2023 10:06-0500 Diastolic blood pressure 72 mm[Hg] Sivan Solo DO Work Phone: [facility] 12-31-2023 10:06-0500 Heart rate 95 /min Sivan Solo DO Work Phone: [facility] 12-31-2023 10:06-0500 SaO2% (BldA) [Mass fraction] 97 % Sivan Solo DO Work Phone: [facility] 12-31-2023 10:06-0500 Systolic blood pressure 118 mm[Hg] Sivan Solo DO Work Phone: [facility] 12-30-2023 10:46-0500 Body mass index (BMI) [Ratio] 40.06 kg/m2 Ijeoma Drake STRETCH MACHINE OPERATOR Work Phone: [facility] 12-30-2023 10:46-0500 Body weight 99.34 kg Ijeoma Drake STRETCH MACHINE OPERATOR Work Phone: [facility] 12-30-2023 10:46-0500 Diastolic blood pressure 74 mm[Hg] Ijeoma Riverpatrick STRETCH MACHINE OPERATOR Work Phone: [facility] 12-30-2023 10:46-0500 Heart rate 97 /min Ijeoma Riverpatrick STRETCH MACHINE OPERATOR Work Phone: [facility] 12-30-2023 10:46-0500 SaO2% (BldA) [Mass fraction] 98 % Ijeoma Riverpatrick STRETCH MACHINE OPERATOR Work Phone: [facility] 12-30-2023 10:46-0500 Systolic blood pressure 98 mm[Hg] Ijeoma Mansfieldzpatrick STRETCH MACHINE OPERATOR Work Phone: [facility] 01-18-2023 09:10-0500 Body height 156.21 cm Elle Ruthie Other [facility] Other 01-18-2023 09:10-0500 Body mass index (BMI) [Ratio] 42.82 kg/m2 Elle Ruthie Other [facility] Other 01-18-2023 09:10-0500 Body temperature 98.2 [degF] Elle Ruthie Other [facility] Other 01-18-2023 09:10-0500 Body weight 104.51 kg Elle Ruthie Other [facility] Other 01-18-2023 09:10-0500 Diastolic blood pressure 92 mm[Hg] Elle Ruthie Other [facility] Other 01-18-2023 09:10-0500 Respiratory rate 18 /min Elle Ruthie Other [facility] Other 01-18-2023 09:10-0500 SaO2% (BldA) [Mass fraction] 97 % Elel Ruthie Other [facility] Other 01-18-2023 09:10-0500 Systolic blood pressure 145 mm[Hg] Elle Hendricks Other [facility] Other Encounters Encounter Date Encounter Type Care Provider Facility Start: 12-31-2023 End: 12-31-2023 Clinisync Result Encounter Ijeoma Drake STRETCH MACHINE OPERATOR Work Phone: [facility] External Department Unsolicited Start: 12-31-2023 End: 12-31-2023 [facility] Result Encounter Ijeoma Drake STRETCH MACHINE OPERATOR Work Phone: [facility] External Department Unsolicited Start: 12-31-2023 End: 12-31-2023 Office consultation new/estab patient 60 min Sivan Villegas DO Work Phone: [facility] Comment on above: JANETT (obstructive sle ep apnea) (Primary Dx); Hypersomnia; Snoring; Primary insomnia; Tobacco abuse Start: 12-31-2023 End: 12-31-2023 ambulatory SIVAN VILLEGAS Not Available Start: 12-30-2023 End: 12-30-2023 Bamboo flowsheet Ijeoma Valenciatrick STRETCH MACHINE OPERATOR Work Phone: [facility] Start: 12-30-2023 End: 12-30-2023 Bamboo flowsheet Ijeoma Valenciatrick STRETCH MACHINE OPERATOR Work Phone: [facility] Start: 12-30-2023 End: 12-30-2023 Office outpatient visit 15 minutes Ijeoma Princek STRETCH MACHINE OPERATOR Work Phone: [facility] Comment on above: Type 2 diabetes cory itus with diabetic microalbuminuria, without long-term current use of insulin (CMS/HCC) (Primary Dx); Essential hypertension; Other hyperlipidemia (CMS/HCC); Snoring; Mixed urge and stress incontinence Start: 12-30-2023 End: 12-30-2023 ambulatory IJEOMA DRAKE Not Available Start: 12-17-2023 End: 12-17-2023 Refill Jolly Castaneda MA [facility] Comment on above: Migraine with aura a nd without status migrainosus, not intractable (CMS/HCC); Diabetic polyneuropathy associated with type 2 diabetes mellitus (CMS/HCC) Start: 12-17-2023 End: 12-18-2023 Refill Ijeoma Drake STRETCH MACHINE OPERATOR Work Phone: [facility] Comment on above: Gout, unspecified ca use, unspecified chronicity, unspecified site Start: 10-04-2023 ambulatory Facility:[facility] Start: 10-03-2023 End: 10-03-2023 ambulatory IJEOMA DRAKE Not Available Start: 08-22-2023 End: 08-22-2023 ambulatory SHAIKH MARICEL Not Available Start: 08-05-2023 End: 08-05-2023 ambulatory CRISTINA FAWWAD Not Available Start: 07-04-2023 End: 07-04-2023 ambulatory CRISTINA FAWWAD Not Available Start: 05-02-2023 End: 05-02-2023 ambulatory CRISTINA FAWWAD Not Available Start: 04-30-2023 End: 04-30-2023 ambulatory [facility] Work Phone: Start: 04-30-2023 End: 04-30-2023 Patient encounter procedure [facility] Work Phone: Start: 03-21-2023 Orders Only Shaikh Maricel HOLLIS Work Phone: [facility] Comment on above: Diabetic polyneuropa thy associated with type 2 diabetes mellitus (CMS/HCC) (Primary Dx) Start: 03-19-2023 End: 03-19-2023 ambulatory Ana Luisa Curtis Other [facility] Other Start: 03-19-2023 Office outpatient vi sit 15 minutes Ana Luisa Curtis [facility] Start: 02-25-2023 End: 02-25-2023 ambulatory ELIDA GARCIA Not Available Start: 01-29-2023 End: 01-29-2023 ambulatory SHAIKH MARICEL Not Available Start: 01-23-2023 End: 01-23-2023 ambulatory Ana Luisa Curtis Other [facility] Other Start: 01-23-2023 Office outpatient vi sit 15 minutes Ana Luisajesus Curtis [facility] Start: 01-18-2023 End: 01-18-2023 ambulatory Elle Hendricks Other [facility] Other Start: 01-18-2023 Office outpatient vi sit 15 minutes Elle Hendricks [facility] Start: 09-19-2022 End: 09-19-2022 ambulatory Ana Luisa Curtis Other [facility] Other Start: 09-19-2022 Telephone encounter Ana Luisa Curtis [facility] Start: 07-12-[address] JONATHAN EDWARDS Facili ty:H1 Start: 06-07-2022 End: 06-08-[address] JONATHAN EDWARDS Facility:H1 Start: 05-02-2022 End: 05-02-2022 ambulatory Ana Luisa Curtis Other [facility] Other Start: 05-02-2022 Office outpatient ne w [...] Start: 08-30-2021 End: 08-31-2021 ambulatory NIKKIE BARCLAY [facility] Start: 08-30-2021 End: 08-30-2021 Subsequent hospital visit by physician Sr House DO Work Phone: [facility] Laboratory Comment on above: Routine cervical sme ar Start: 08-16-2021 Encounter for genera l adult medical examination without abnormal findings DR RICARDO HOLM . [facility] Start: 08-09-2021 End: 08-10-2021 Encounter for general [...] Date Procedure Procedure Detail Performing Clinician Start: 12-31-2023 ALL CBC WITH AUTO DIFF Ijeoma Drake STRETCH MACHINE OPERATOR Work Phone: Start: 03-20-2023 Mammography Shaikh Marie calero MD Work Phone: Start: 08-30-2021 Microscopic observat ion [Identifier] in Cervix by Cyto stain Sr House DO Work Phone: Plan of Treatment Date Care Activity Detail Author Start: 03-28-2026 Screening for malign ant neoplasm of colon [facility] Start: 03-08-2026 Screening for malign ant neoplasm of colon [facility] Start: 12-30-2024 Urine screening for protein Diabetes: Urine Protein Screening [facility] Start: 08-30-2024 Screening for malign ant neoplasm of cervix [facility] Start: 07-26-2024 Urine screening for protein Diabetes: Urine Protein Screening [facility] Start: 03-26-2024 End: 03-26-2024 Patient encounter procedure 03/26/2024 2:00 PM EST Office Visit [facility] [address] [place] [address] Ijeoma Drake NP [address] [place] [phone] [facility] Start: 03-24-2024 End: 03-24-2024 Patient encounter procedure 03/24/2024 4:00 PM EST Office Visit [facility] [place] [phone] Za Wilkerson NP [address] [place] [address] [facility] Start: 03-20-2024 Screening for malign ant neoplasm of breast Mammogram [facility] Start: 02-27-2024 End: 02-27-2024 Patient encounter procedure 02/27/2024 11:35 AM EST Office Visit [facility] [address] [place] [address] Elida Garcia MD [address] [place] [address] [facility] Start: 02-25-2024 End: 02-25-2024 Patient encounter procedure 02/25/2024 3:30 PM EST Office Visit [facility] [address] [place] [phone] Ijeoma Drake NP [address] [place] [phone] [facility] Start: 02-12-2024 Glaucoma screening Diabetes: R etinopathy Screening [facility] Start: 01-25-2024 Hemoglobin A1c measurement Diabetes: Hemoglobin A1C [facility] Start: 12-31-2023 End: 12-30-2024 Polysomnography [facility] Routine JANETT (obstructive sleep apnea) Expected: 12/31/2023 (Approximate), Expires: 12/30/2024 [facility] Work Phone: Comment on above: Expected: 12/31/2023 (Approximate), Expires: 12/30/2024 Start: 12-31-2023 End: 12-31-2023 Patient encounter procedure 12/31/2023 10:00 AM EST Office Visit [facility] [address] [place] [address] Sivan Villegas, [address] [place] [address] [facility] [address] Start: 12-30-2023 End: 12-29-2024 CBC W Auto Differential panel - Blood CBC and differential Lab Routine Type 2 diabetes mellitus with diabetic microalbuminuria, without long-term current use of insulin (CMS/HCC) Essential hypertension Expected: 12/30/2023 (Approximate), Expires: 12/29/2024 [facility] Comment on above: Expected: 12/30/2023 (Approximate), Expires: 12/29/2024 Start: 12-30-2023 End: 12-29-2024 Comprehensive metabolic 2000 panel - Serum or Plasma Comprehensive metabolic panel Lab Routine Type 2 diabetes mellitus with diabetic microalbuminuria, without long-term current use of insulin (CMS/HCC) Essential hypertension Expected: 12/30/2023 (Approximate), Expires: 12/29/2024 [facility] Comment on above: Expected: 12/30/2023 (Approximate), Expires: 12/29/2024 Start: 12-30-2023 End: 12-29-2024 Hemoglobin A1c/Hemoglobin.total in Blood Hemoglobin A1c Lab Routine Type 2 diabetes mellitus with diabetic microalbuminuria, without long-term current use of insulin (CMS/HCC) Expected: 12/30/2023 (Approximate), Expires: 12/29/2024 [facility] Comment on above: Expected: 12/30/2023 (Approximate), Expires: 12/29/2024 Start: 12-30-2023 End: 12-30-2023 Patient encounter procedure 12/30/2023 10:30 AM EST Office Visit [facility] [address] [place] [address] Ijeoma Drake, RONALDO [address] [place] [phone] [facility] Start: 10-13-2023 Influenza vaccination Influenza Vacc ine (#1) [facility] Start: 08-11-2023 Influenza vaccination Influenza Vacc ine (#1) [facility] Comment on above: Postponed from 10/12 (Patient Refused) Start: 05-02-2023 End: 05-02-2023 Patient encounter procedure 05/02/2023 2:00 PM EDT Office Visit [facility] [address] [place] [phone] Shaikh Connelly MD [address] [place] [phone] [facility] Start: 02-17-2023 Hemoglobin A1c measurement Diabetes: Hemoglobin A1C [facility] Start: 09-04-2022 End: 09-04-2022 Patient encounter procedure 09/04/2022 Office Visit Obstetrics and Gynecology Nikkie Barclay, [employer] - [address] [address] [facility] Start: 10-12-2021 Influenza vaccination Flu vaccine (# 1) [facility] Start: 10-21-2013 Screening for malign ant neoplasm of breast Breast cancer screen [facility] Start: 10-21-2013 Shingles vaccine (1 of 2) [place] vaccine (1 of 2) [facility] Start: 10-21-2008 Screening for malign ant neoplasm of colon [facility] Start: 2003 Lipid panel Lipids [facility] Start: 10-21-1998 Diabetes screen Diabetes screen [facility] Start: 10-21-1993 Screening for malign ant neoplasm of cervix [facility] Start: 10-21-1982 DTaP/Tdap/Td vaccine (1 - Tdap) DTaP/Tdap/Td vaccine (1 - Tdap) [facility] Start: 10-21-1982 Urine screening for protein Diabetes: Urine Protein Screening [facility] Start: 10-21-1981 Hepatitis C screening Hepatitis C sc reen [facility] Start: 10-21-1978 HIV screening HIV screen [facility] Start: 1975 Depression Screen Depression Screen [facility] Start: 04-20-1964 COVID-19 Vaccine (#1) COVID-19 Vacci ne (#1) [facility] Start: 1963 Screening for malign ant neoplasm of colon [facility] End: 08-30-2021 Cytopathology procedure, preparation of smear, genital source PAP SMEAR Lab Routine Routine cervical smear 1 Occurrences starting 08/30/2021 until 08/30/2021 [facility] Work Phone: Comment on above: 1 Occurrences starti ng 08/30/2021 until 08/30/2021 Microalbumin/Creatin ine panel in random Urine Microalbumin / creatinine urine ratio Lab Routine Type 2 diabetes mellitus with diabetic microalbuminuria, without long-term current use of insulin ([facility]) Essential hypertension Ordered: 12/30/2023 [facility] Work Phone: Comment on above: Ordered: 12/30/2023 Immunizations Immunization Date Immunization Notes Care Provider Tima garcia 01-14-2017 influenza, injectabl e, quadrivalent, preservative [facility] 01-14-2017 influenza virus vacc ine, unspecified formulation Jolly Castaneda MA [facility] Payers Date Payer Category Payer Private Health Insurance [facility] [id number] 2022 Unknown [employer] [id number] 2022-Present [phone] [address] [address] [place] [address] [id number]. 2.7.3.369671.315 2012 Medicare [id number]. 1.13.693. 2.7.3.855679.315 1963 Unknown [id number] 2.16.840.1.270784.3.579. 2.173 1963 Unknown [id number] 2.16.840.1.686853.3.579. 2.593 1963 Unknown [id number] 2.16.840.1.037127.3.579. 2.593 1963 Unknown [id number] 2.16.840.1.640878.3.579. 2.593 1963 Unknown [id number] 2.16.840.1.735305.3.579. 2.593 1963 Unknown [id number] 2.16.840.1.493350.3.579. 2.593 1963 Unknown [id number] 2.16.840.1.483973.3.579. 2.593 1963 Unknown [id number] 2.16.840.1.937977.3.579. 2.593 1963 Unknown [id number] 2.16.840.1.495723.3.579. 2.593 1963 Unknown [id number] 2.16.840.1.963175.3.579. 2.593 1963 Unknown [id number] 2.16.840.1.784284.3.579. 2.593 1963 Unknown [id number] 2.16.840.1.054380.3.579. 2.593 1963 Unknown [id number] 2.16.840.1.084142.3.579. 2.593 1963 Unknown [id number] 2.16.840.1.708060.3.579. 2.593 1963 Unknown [id number] 2.16.840.1.419504.3.579. 2.593 1963 Unknown [id number] 2.16.840.1.765963.3.579. 2.593 1963 Unknown [id number] 2.16.840.1.776310.3.579. 2.593 1963 Unknown [id number] 2.16.840.1.882794.3.579. 2.1259 1963 Unknown [id number] 2.16.840.1.552611.3.579. 2.125 1963 Unknown [id number] 2.16.840.1.587470.3.579. 2.1259 1963 Unknown [id number] 2.16.840.1.968944.3.579. 2.1258 1963 Unknown [id number] 2.16.840.1.546395.3.579. 2.9 1963 Unknown [id number] 2.16.840.1.775585.3.579. 2.125 1963 Unknown [id number] 2.16.840.1.351737.3.579. 2.1258 1963 Unknown [id number] 2.16.840.1.697205.3.579. 2.1258 1963 Unknown [id number] 2.16.840.1.750039.3.579. 2.1259 1959 Medicare [id number] 1.2.840.062864.1.13.239. 2.7.3.375929.315 1959 Unknown [id number] 1.2.840.626998.1.13.239. 2.7.3.496878.315 1959 Unknown [id number] 2.16.840.1.426178.19 Medicare Medicare [id number] Self-pay Self Pay [id number] Social History Date Type Detail Facility Start: 08-30-2021 End: 12-31-2023 Tobacco smoking status MDIS Smokes tobacco daily [place] Phone: History of tobacco use Cigarette Smoker [facility] [employer] Phone: Start: 08-30-2021 End: 08-05-2023 Tobacco use and exposure Smokeless tobacco non-user [place] Phone: Start: 08-30-2021 Alcohol intake Current drinke r of alcohol (finding) [place] Phone: Start: 08-30-2021 History SDOH Alcohol Comment occasional [place] Phone: Start: 1965 Sex Assigned At Not on file [facility] [employer] Phone: Start: 08-20-2021 End: 08-30-2021 Exposure to SARS-CoV-2 (event) Not sure [facility] [employer] Start: 02-25-2023 End: 10-02-2023 Sex Assigned At [facility] Start: 01-29-2023 End: 08-05-2023 Tobacco smoking status MDIS Ex-smoker [facility] History of tobacco use Current smoker [facility] Start: 01-29-2023 End: 10-02-2023 Cigarettes smoked current (pack per day) - Reported 0.5 [facility] Start: 02-25-2023 End: 10-03-2023 Alcohol intake Lifetime non-drinker (finding) [facility] Start: 1965 Sex Assigned At Female F [facility] History of tobacco use Passive smoker [facility] How often do you nee d to have someone help you when you read instructions, pamphlets, or other written material from your doctor or pharmacy [SILS] Patient declines to respond [facility] Are you now , , , , never or living with a partner? [facility] How often to you hav e a drink containing alcohol? Monthly or less [facility] How many standard drinks containing alcohol do you have on a typical day? 1 or 2 [facility] How often do you hav e 6 or more drinks on 1 occasion? Never [facility] Do you feel stress - tense, restless, nervous, or anxious, or unable to sleep at night because your mind is troubled all the time - these days [OSQ] To some extent [facility] Medical Equipment Procedure Code Equipment Code Equipment Origin al Text Equipment Identifier Dates USE TO TEST BLOO D SUGAR TWICE DAILY [id number] Start: 06-08-2021 Clinical Notes 06-20-2021 to 12-31-2023 Sivan Villegas, - 12/31/2023 10:00 AM Curt Drake, RONALDO - 12/30/2023 1:19 PM Curt Drake, RONALDO - 12/30/2023 1:18 PM Curt Drake, RONALDO - 12/30/2023 1:18 PM EST Note Date & Type Note Facility 12-31-2023 History of Presen t illness Narrative Images from the original note were not included. No chief complaint on file. Subjective SLEEP CONSULT REFERRAL: Snoring, concern for JANETT, needing sleep study - labs @ [facility]; referral received from Ijeoma Drake CNP. 58 year old female being seen in Neurology consultation for sleep. She does not sleep well at night and then is sleepy during the day. He has had this for at least the last couple of years and it is getting worse. Patient Symptoms Snores: yes Wakes gasping for breath: yes intermittent Dozes off if inactive: yes Dozes off with activity: yes Wakes a lot through the night: yes 2-3 and hard to fall back to sleep. Witnessed episodes of apnea: no Bedtime: fall asleep in living room and falls asleep around- 9:30pm Is it hard or easy to fall asleep: easy Morning wake time: 4-7am Do you feel rested: no Takes naps: yes Feels better after napping: no Sleepwalk: no Sleeptalk: no Vivid Dreams: no Acts out dreams: no Sleep related hallucinations: no Sleep paralysis: no Cataplexy: no Restless Leg: yes Kicking/Jerking at night: yes TV on while sleeping: yes Smoke before bed: yes Caffeine within 3 hours before bed: no CV exercise: no Past Medical History: Diagnosis Date Acute gout of wrist Basal cell carcinoma Bilateral leg edema Chronic low back pain Cyst, ovary, follicular Diabetes mellitus (CMS/HCC) Hallux valgus, right Hyperlipidemia (CMS/HCC) Hypertension (CMS/HCC) Labial skin tag Metatarsus adductus of right foot Migraine headache (CMS/HCC) Osteoporosis (CMS/HCC) Right foot pain Type 2 diabetes mellitus, without long-term current use of insulin (CMS/HCC) Past Surgical History: Procedure Laterality Date BACK SURGERY HYSTERECTOMY Family History Problem Relation Name Age of Onset Heart disease Mother Hyperlipidemia Mother Arthritis Mother Hypertension Mother Diabetes Mother Cancer Mother Heart disease Maternal Grandfather Hypertension Maternal Grandfather Diabetes Maternal Grandfather Cancer Maternal Grandfather Melanoma Neg Hx Social History Tobacco Use Smoking status: Former Current packs/day: 0.50 Types: Cigarettes Passive exposure: Past Smokeless tobacco: Never Substance Use Topics Alcohol use: Never Allergies: Patient has no known allergies. General: No fever or chills HEENT: No nasal congestion or runny nose Pulmonary: No shortness of breath or cough Cardiovascular: No chest pain or palpitations GI: No nausea or vomiting : No dysuria or hematuria Musculoskeletal: No new aches or pains or muscle weakness Infectious: no recurrent fevers or infections Dermatologic: No rashes or skin lesions Neurologic: No new headaches or dizziness Vitals: 12/31/23 1006 BP: 118/72 Pulse: 95 SpO2: 97% Body mass index is 39.14 kg/m . weight: 214 lb Neurologic exam: General: Obese, cooperative, pleasant, Mallampati of 3 very narrow oropharyngeal opening with macroglossia and some scalloped tongue Mental status: Awake, alert to person, place and time. Recent and remote memory are intact. Attention and concentration are normal. Fund of knowledge is appropriate for level of education. HEENT: NC/AT Cranial nerves: CN II: Visual fagan full to confrontation. No loss of vision CN III, IV, : pupils equal round and reactive to light. Extraocular movements intact. No ptosis present. CN V: Facial sensation is normal. CN VII: Full and symmetric facial movement. CN VIII: Hearing is normal CN IX and X: Palate elevates symmetrically. CN XI: Shoulder shrug is normal bilaterally. CN XII: Tongue is midline without atrophy or fasciculation. Speech: Clear and fluent no aphasia or dysarthria Pronator drift: Negative bilateral upper extremity Coordination: Intact, no signs of dysmetria Good finger to nose and rapid alternating movements Sensory: Sensation is intact to light, temperature and vibratory touch throughout four extremities. Pinprick intact in all four extremities. Motor: LUE 5/5 RUE 5/5 LLE 5/5 RLE 5/5 Tone: Physiologic, no tremor, bradykinesia or rigidity DTR: Bilateral Biceps 2/4 Bilateral BR 2/4 Bilateral Patellar 1/4 No spasticity Gait: Normal to casual gait Romberg's Negative Review and summary of old records: Assessment/Plan Diagnoses and all orders for this visit: JANETT (obstructive sleep apnea) Hypersomnia Snoring Primary insomnia Tobacco abuse 58-year-old female with significant daytime hypersomnia and snoring with underlying obesity and narrow oropharyngeal opening that all are signs and are consistent with obstructive sleep apnea. Patient needs a PSG to assess this further. I would like the PSG as she also is having some sleep maintenance insomnia and she may be having some periodic limb movement disorder and I would like to assess that further on this study. She then can have a titration study to treat the sleep apnea. She does have the underlying obesity and was counseled on diet exercise weight loss whole foods and clean living. She has tobacco abuse in his smoking right before bedtime and needs to not smoke within an hour of bedtime. She also has some inadequate sleep hygiene in his sleeping on the couch and leaving the TV on and she would benefit from moving to the bed and getting the TV off while sleep as this is likely disrupting her sleep. She is not getting any cardiovascular exercise and increasing that even with chair exercises would help consolidate her sleep more. Plan Set up with a PSG in order to assess her sleep and for PLMD Titration study once she has a PSG if positive Do not smoke within an hour bedtime and try to stop smoking completely Improve sleep hygiene with getting the TV off and trying to sleep in the bed Increase the cardiovascular exercise to help consolidate the sleep The patient was counseled on the need for aggressive diet, exercise, and weight loss. The patient was counseled on proper sleep hygiene and adequate hours of sleep. The patient was counseled on the risks of stroke, [place], and sudden with JANETT, along with the need for compliance with the CPAP/BiPAP treatment. The diagnosis was all discussed with the patient. All questions were answered and they agreed with the treatment plan. Patient will call if there are any new issues or questions. Pt has been fully educated on their diagnosis, treatment options, follow up plan, and return instructions Return to clinic: 2 months documented in this encounter [facility] 12-30-2023 History of Presen t illness Narrative Associated Problem(s): Mixed urge and stress incontinence Referral sent to Urology for urinary dysfunction. Pt has not gone to see them yet. Associated Problem(s): Snoring Referral sent to Neurology for suspected first JANETT. First appointment tomorrow. Associated Problem(s): Other hyperlipidemia (CMS/HCC) Crestor 20mg Denies myalgias Continue current regimen. Associated Problem(s): Type 2 diabetes mellitus with diabetic microalbuminuria, without long-term current use of insulin (CMS/HCC) Currently taking Metformin Bid and Ozempic Most recent labs: hemoglobin A1C 6.3% Average FSBS range from BGs range between 100 and 125 No episode of hypoglycemia No medication adverse effects reported by the patient. Patient educated on lifestyle modifications, dietary restrictions, signs and symptoms of hypoglycemia/hyperglycemia and importance of eating regular consistent meals. Stressed upon importance of checking blood glucose at home and bring blood glucose log to appointments. All questions, concerns answered and addressed. Encouraged to call office if persistent hypoglycemia/hyperglycemia on home glucose monitoring noted. Last DM eye Exam; 01/2023; Is going in 01/2024 Images from the original note were not included. Subjective Patient ID: Karina De Oliveira is a 58 y.o. female who presents for Diabetes. HPI HTN: BP is consistenly low in office Not on any medication regimen. Continue to monitor closely. HLD: Crestor 20mg Denies myalgias Continue current regimen. Component Ref Range & Units 6 mo ago (03/20/23) 6 mo ago (03/20/23) TRIGLYCERIDES <=150 mg/dL 103 0.3 R CHOLESTEROL <=200 mg/dL 110 0.1 R HDL CHOLESTEROL 40 - 60 mg/dL 47 15 R Comment: > or =60 mg/dl - LOW CARDIOVASCULAR RISK <40 mg/dl - HIGH CARDIOVASCULAR RISK LDL CHOLESTEROL CALCULATED mg/dL 42.4 26 R Comment: <100 mg/dl OPTIMAL 100-129 mg/dl NEAR OR ABOVE OPTIMAL 130-159 mg/dl BORDERLINE HIGH 160-189 mg/dl HIGH >190 mg/dl VERY HIGH VLDL CHOLESTEROL mg/dL 20.6 66 R CHOL HDL RATIO 2.3 7.5 R Comment: 3.3 - 4.4 LOW RISK 4.4 - 7.1 AVERAGE RISK 7.1 - 11.0 MODERATE RISK >11.0 HIGH RISK ALBUMIN LEVEL 3.3 Low R ALBUMIN GLOBULIN RATIO 0.8 Resulting Agency [facility] DMII: Metformin Bid and Ozempic Most recent labs: hemoglobin A1C 6.3% Average FSBS range from BGs range between 100 and 125 No episode of hypoglycemia No medication adverse effects reported by the patient. Patient educated on lifestyle modifications, dietary restrictions, signs and symptoms of hypoglycemia/hyperglycemia and importance of eating regular consistent meals. Stressed upon importance of checking blood glucose at home and bring blood glucose log to appointments. All questions, concerns answered and addressed. Encouraged to call office if persistent hypoglycemia/hyperglycemia on home glucose monitoring noted. Last DM eye Exam; 01/2023; Is going in 01/2024 Referral sent to Neurology for suspected first JANETT. First appointment tomorrow. Referral sent to Urology for urinary dysfunction. Pt has not gone to see them yet. Review of Systems Constitutional: Negative for activity change, appetite change, chills, diaphoresis, fatigue, fever and unexpected weight change. HENT: Negative for congestion, ear pain, rhinorrhea, sinus pressure, sinus pain, sneezing, sore throat, trouble swallowing and voice change. Eyes: Negative for visual disturbance. Respiratory: Negative for cough, chest tightness, shortness of breath and wheezing. Cardiovascular: Negative for chest pain and palpitations. Gastrointestinal: Negative for abdominal distention, abdominal pain, blood in stool, constipation, diarrhea and vomiting. Genitourinary: Positive for enuresis and frequency. Negative for decreased urine volume, dysuria, flank pain, hematuria and urgency. Musculoskeletal: Negative for arthralgias, gait problem, joint swelling and myalgias. Skin: Negative for rash. Neurological: Negative for dizziness, tremors, syncope, weakness, light-headedness and headaches. Psychiatric/Behavioral: Negative for decreased concentration and suicidal ideas. The patient is not nervous/anxious. Hematological: Does not bruise/bleed easily. Endocrine: Negative for cold intolerance, heat intolerance, polydipsia, polyphagia and polyuria. Objective Physical Exam Vitals reviewed. Constitutional: Appearance: Normal appearance. HENT: Head: Normocephalic and atraumatic. Right Ear: Tympanic membrane normal. Left Ear: Tympanic membrane normal. Nose: Nose normal. Mouth/Throat: Mouth: Mucous membranes are moist. Pharynx: Oropharynx is clear. Eyes: Pupils: Pupils are equal, round, and reactive to light. Cardiovascular: Rate and Rhythm: Normal rate and regular rhythm. Pulses: Normal pulses. Heart sounds: Normal heart sounds. Pulmonary: Effort: Pulmonary effort is normal. Breath sounds: Normal breath sounds. Abdominal: General: Abdomen is flat. Bowel sounds are normal. Palpations: Abdomen is soft. Musculoskeletal: General: Normal range of motion. Cervical back: Normal range of motion. Skin: General: Skin is warm and dry. Capillary Refill: Capillary refill takes less than 2 seconds. Neurological: General: No focal deficit present. Mental Status: She is alert and oriented to person, place, and time. Psychiatric: Mood and Affect: Mood normal. Behavior: Behavior normal. Assessment/Plan Problem List Items Addressed This Visit Type 2 diabetes mellitus with diabetic microalbuminuria, without long-term current use of insulin (CMS/HCC) - Primary Currently taking Metformin Bid and Ozempic Most recent labs: hemoglobin A1C 6.3% Average FSBS range from BGs range between 100 and 125 No episode of hypoglycemia No medication adverse effects reported by the patient. Patient educated on lifestyle modifications, dietary restrictions, signs and symptoms of hypoglycemia/hyperglycemia and importance of eating regular consistent meals. Stressed upon importance of checking blood glucose at home and bring blood glucose log to appointments. All questions, concerns answered and addressed. Encouraged to call office if persistent hypoglycemia/hyperglycemia on home glucose monitoring noted. Last DM eye Exam; 01/2023; Is going in 01/2024 Relevant Orders Microalbumin / creatinine urine ratio Hemoglobin A1c Comprehensive metabolic panel CBC and differential Other hyperlipidemia (CMS/HCC) Crestor 20mg Denies myalgias Continue current regimen. Essential hypertension (Chronic) Relevant Orders Microalbumin / creatinine urine ratio Comprehensive metabolic panel CBC and differential Mixed urge and stress incontinence Referral sent to Urology for urinary dysfunction. Pt has not gone to see them yet. Snoring Referral sent to Neurology for suspected first JANETT. First appointment tomorrow. documented in this encounter [facility] 12-30-2023 Instructions Ijeoma Drake NP - 12/30/2023 10:30 AM EST FASTING labs ordered. Nothing to eat or drink for 12 hours prior to blood draw. Water and black coffee ok. Call if you need anything! documented in this encounter [facility] 12-17-2023 Telephone encount er Note GIOVANNA:10/03/2023 NOV:12/30/2023 [facility] 12-17-2023 Miscellaneous Notes Formattin g of this note might be different from the original. GIOVANNA:10/03/2023 NOV:12/30/2023 documented in this encounter [facility] 03-19-2023 Evaluation note Encounter Date Diagnosis Assessment [...] Mar, Left hand pain (ICD-10 - M79.642) [facility] Other 12-13-2023 Evaluation note* Encounter Date Diagnosis [...] noted. Patient will f/u in 4 weeks. [facility] Other 12-08-2023 Evaluation note* Encounter Date Diagnosis [...] left hand x-ray that was performed at [facility] which revealed degenerative changes in the hand as well as a remote avulsion fracture of the thumb. Patient states her family doctor is treating her for gout in her hand. Jan, History of gout (ICD-10 - Z87.39) Jan, Other Gout material w as printed [facility] Other 08-09-2023 Evaluation note* Encounter Date Diagnosis Assessment Notes Treatment Notes Treatment Clinical Notes Sep, Right wrist pain (ICD-10 - M25.531) [facility] Other 04-27-2023 NoteCONSULTATION CONSULTATION DATE: 06/07/2022 TO: [...] our patients to inform us about any [id number] medications or herbal remedies/nutritional supplements/alternative remedies. 2. [...] treatment options with their primary care provider.[id number] Evaluation note * Encounter Date Diagnosis Assessment [...] understanding and is agreeable to treatment plan. [facility] Other 01-26-2023 NoteCONSULTATION PROCEDURE DATE: 03/08/2022 PREOPERATIVE [...] will be followed up in the clinic.[id number] NotePROCEDURE: XR KNEE LT 4V or > [...] authenticated by: PATTIE SALTER Date: 2022-02-16 11:29[facility] [id number] NoteCONSULTATION CONSULTATION DATE: 02/09/2022 HISTORY OF PRESENT [...] office today. Patient agrees with this plan.[id number] NotePROCEDURE: XR WRIST RT MIN 3 V COMPARISON: None. HISTORY: Injury of right wrist FINDINGS: BONES:No acute fracture or dislocation. Corticated bone fragment identified along the first carpometacarpal joint [degenerative in nature SOFT TISSUES:Moderate diffuse soft tissue swelling EFFUSION:None visible. OTHER: Negative. IMPRESSION: Soft tissue swelling, no acute fracture Electronically authenticated by: RYAN GOLDMAN Date: 2021-11-16 18:59[facility] [id number] NoteCONSULTATION CONSULTATION DATE: 11/01/2021 HISTORY OF PRESENT [...] otherwise indicated. Patient agrees with this plan.[facility] [id number] NoteCONSULTATION PROCEDURE DATE: 11/01/2021 PRE AND POSTOPERATIVE [...] will be followed up in the clinic.[facility] [id number] NoteCONSULTATION PROCEDURE DATE: 08/09/2021 PREOPERATIVE DIAGNOSIS: Bilateral [...] will be followed up in the clinic. [facility] Signed and Approved by: CRYS PIERCE . 08/10/2021 13:37:00[facility]06-08-2022 NoteCONSULTATION CONSULTATION DATE: 07/19/2021 HISTORY OF PRESENT [...] injections. Patient acknowledges and all questions answered. [facility] Signed and Approved by: CRYS PIERCE . 07/20/2021 10:33:00[facility]05-25-2022 NotePROCEDURE: XR FOOT RT MIN [...] authenticated by: PATTIE SALTER Date: 2021-07-05 11:11[facility]05-10-2022 NoteCONSULTATION CONSULTATION DATE: 06/20/2021 CHIEF [...] like to proceed. CC: Jonathan Edwards M.D. [facility] Signed and Approved by: DR RICARDO HOLM . 06/27/2021 10:40:00[facility] Diagnosis Routine cervical smear Screening for malignant neoplasm of the cervix documented in this encounter [facility] Work Phone: evaluation note* Diagnosis Diabetic polyneuropathy associated with type 2 diabetes mellitus (CMS/HCC)- Primary documented in this encounter [facility] HealthcareEvaluation noteNo assessment information available[facility] Work Phone: Evaluation note* Diagnosis Encounter for screening mammogram for breast cancer- Primary Encounter for screening for malignant neoplasm of colon Type 2 diabetes mellitus without complication, without long-term current use of insulin (CMS/HCC) Upper respiratory tract infection, unspecified type URTI (acute upper respiratory infection) Acute upper respiratory infections of unspecified site Migraine with aura and without status migrainosus, not intractable (CMS/HCC)- Primary Type 2 diabetes mellitus without complication, without long-term current use of insulin (CMS/HCC) Morbid (severe) obesity due to excess calories (E66.01) Body mass index [BMI] 40.0-44.9, adult (Z68.41) Essential hypertension Unspecified essential hypertension Essential hypertension- Primary Unspecified essential hypertension Type 2 diabetes mellitus without complication, without long-term current use of insulin (CMS/HCC) Back spasm Other symptoms referable to back Closed fracture of proximal end of left fibula with routine healing, unspecified fracture morphology, subsequent encounter Closed nondisplaced fracture of second metatarsal bone of left foot with routine healing, subsequent encounter Other hyperlipidemia (CMS/HCC) Hyperuricemia Other abnormal blood chemistry Osteoporosis, unspecified osteoporosis type, unspecified pathological fracture presence (CMS/HCC) Diabetic polyneuropathy associated with type 2 diabetes mellitus (CMS/HCC) Gastroesophageal reflux disease without esophagitis Esophageal reflux Migraine with aura and without status migrainosus, not intractable (CMS/HCC) Hospital discharge follow-up Other follow-up examination Type 2 diabetes mellitus with diabetic microalbuminuria, without long-term current use of insulin (CMS/HCC)- Primary Other hyperlipidemia (CMS/HCC) Essential hypertension Unspecified essential hypertension Bilateral lower extremity edema Lumbar back pain- Primary Lumbago Hospital discharge follow-up Other follow-up examination Essential hypertension- Primary Unspecified essential hypertension Type 2 diabetes mellitus with diabetic microalbuminuria, without long-term current use of insulin (CMS/HCC) Morbid (severe) obesity due to excess calories (E66.01) Other hyperlipidemia (CMS/HCC) Lumbar back pain Lumbago Type 2 diabetes mellitus without complication, without long-term current use of insulin (CMS/HCC) Diabetic polyneuropathy associated with type 2 diabetes mellitus (CMS/HCC) Mixed urge and stress incontinence Mixed incontinence urge and stress (male)(female) Snoring Other dyspnea and respiratory abnormality Encounter for long-term (current) use of high-risk medication Encounter for long-term (current) use of other medications Migraine with aura and without status migrainosus, not intractable (CMS/HCC) Diabetic polyneuropathy associated with type 2 diabetes mellitus (CMS/HCC) documented in this encounter [facility] HealthcareEvaluation note* Diagnosis Encounter for screening mammogram for breast cancer- Primary Encounter for screening for malignant neoplasm of colon Type 2 diabetes mellitus without complication, without long-term current use of insulin (CMS/HCC) Upper respiratory tract infection, unspecified type URTI (acute upper respiratory infection) Acute upper respiratory infections of unspecified site Migraine with aura and without status migrainosus, not intractable (CMS/HCC)- Primary Type 2 diabetes mellitus without complication, without long-term current use of insulin (CMS/HCC) Morbid (severe) obesity due to excess calories (E66.01) Body mass index [BMI] 40.0-44.9, adult (Z68.41) Essential hypertension Unspecified essential hypertension Essential hypertension- Primary Unspecified essential hypertension Type 2 diabetes mellitus without complication, without long-term current use of insulin (CMS/HCC) Back spasm Other symptoms referable to back Closed fracture of proximal end of left fibula with routine healing, unspecified fracture morphology, subsequent encounter Closed nondisplaced fracture of second metatarsal bone of left foot with routine healing, subsequent encounter Other hyperlipidemia (CMS/HCC) Hyperuricemia Other abnormal blood chemistry Osteoporosis, unspecified osteoporosis type, unspecified pathological fracture presence (CMS/HCC) Diabetic polyneuropathy associated with type 2 diabetes mellitus (CMS/HCC) Gastroesophageal reflux disease without esophagitis Esophageal reflux Migraine with aura and without status migrainosus, not intractable (CMS/HCC) Hospital discharge follow-up Other follow-up examination Type 2 diabetes mellitus with diabetic microalbuminuria, without long-term current use of insulin (CMS/HCC)- Primary Other hyperlipidemia (CMS/HCC) Essential hypertension Unspecified essential hypertension Bilateral lower extremity edema Lumbar back pain- Primary Lumbago Hospital discharge follow-up Other follow-up examination Essential hypertension- Primary Unspecified essential hypertension Type 2 diabetes mellitus with diabetic microalbuminuria, without long-term current use of insulin (CMS/HCC) Morbid (severe) obesity due to excess calories (E66.01) Other hyperlipidemia (CMS/HCC) Lumbar back pain Lumbago Type 2 diabetes mellitus without complication, without long-term current use of insulin (CMS/HCC) Diabetic polyneuropathy associated with type 2 diabetes mellitus (CMS/HCC) Mixed urge and stress incontinence Mixed incontinence urge and stress (male)(female) Snoring Other dyspnea and respiratory abnormality Encounter for long-term (current) use of high-risk medication Encounter for long-term (current) use of other medications Gout, unspecified cause, unspecified chronicity, unspecified site documented in this encounter [facility] HealthcareEvaluation note* Diagnosis Encounter for screening mammogram for breast cancer- Primary Encounter for screening for malignant neoplasm of colon Type 2 diabetes mellitus without complication, without long-term current use of insulin (CMS/HCC) Upper respiratory tract infection, unspecified type URTI (acute upper respiratory infection) Acute upper respiratory infections of unspecified site Migraine with aura and without status migrainosus, not intractable (CMS/HCC)- Primary Type 2 diabetes mellitus without complication, without long-term current use of insulin (CMS/HCC) Morbid (severe) obesity due to excess calories (E66.01) Body mass index [BMI] 40.0-44.9, adult (Z68.41) Essential hypertension Unspecified essential hypertension Essential hypertension- Primary Unspecified essential hypertension Type 2 diabetes mellitus without complication, without long-term current use of insulin (CMS/HCC) Back spasm Other symptoms referable to back Closed fracture of proximal end of left fibula with routine healing, unspecified fracture morphology, subsequent encounter Closed nondisplaced fracture of second metatarsal bone of left foot with routine healing, subsequent encounter Other hyperlipidemia (CMS/[facility]) Hyperuricemia Other abnormal blood chemistry Osteoporosis, unspecified osteoporosis type, unspecified pathological fracture presence (CMS/HCC) Diabetic polyneuropathy associated with type 2 diabetes mellitus (CMS/HCC) Gastroesophageal reflux disease without esophagitis Esophageal reflux Migraine with aura and without status migrainosus, not intractable (CMS/HCC) Hospital discharge follow-up Other follow-up examination Type 2 diabetes mellitus with diabetic microalbuminuria, without long-term current use of insulin (CMS/HCC)- Primary Other hyperlipidemia (CMS/HCC) Essential hypertension Unspecified essential hypertension Bilateral lower extremity edema Lumbar back pain- Primary Lumbago Hospital discharge follow-up Other follow-up examination Essential hypertension- Primary Unspecified essential hypertension Type 2 diabetes mellitus with diabetic microalbuminuria, without long-term current use of insulin (CMS/HCC) Morbid (severe) obesity due to excess calories (E66.01) Other hyperlipidemia (CMS/HCC) Lumbar back pain Lumbago Type 2 diabetes mellitus without complication, without long-term current use of insulin (CMS/HCC) Diabetic polyneuropathy associated with type 2 diabetes mellitus (CMS/HCC) Mixed urge and stress incontinence Mixed incontinence urge and stress (male)(female) Snoring Other dyspnea and respiratory abnormality Encounter for long-term (current) use of high-risk medication Encounter for long-term (current) use of other medications Type 2 diabetes mellitus with diabetic microalbuminuria, without long-term current use of insulin (CMS/HCC)- Primary Essential hypertension Unspecified essential hypertension Other hyperlipidemia (CMS/HCC) Snoring Other dyspnea and respiratory abnormality Mixed urge and stress incontinence Mixed incontinence urge and stress (male)(female) JANETT (obstructive sleep apnea)- Primary Obstructive sleep apnea (adult) (pediatric) Hypersomnia Hypersomnia, unspecified Snoring Other dyspnea and respiratory abnormality Primary insomnia Persistent disorder of initiating or maintaining sleep Tobacco abuse Tobacco use disorder documented in this encounter [facility] HealthcareEvaluation note* Diagnosis Encounter for screening mammogram for breast cancer- Primary Encounter for screening for malignant neoplasm of colon Type 2 diabetes mellitus without complication, without long-term current use of insulin (CMS/HCC) Upper respiratory tract infection, unspecified type URTI (acute upper respiratory infection) Acute upper respiratory infections of unspecified site Migraine with aura and without status migrainosus, not intractable (CMS/HCC)- Primary Type 2 diabetes mellitus without complication, without long-term current use of insulin (CMS/HCC) Morbid (severe) obesity due to excess calories (E66.01) Body mass index [BMI] 40.0-44.9, adult (Z68.41) Essential hypertension Unspecified essential hypertension Essential hypertension- Primary Unspecified essential hypertension Type 2 diabetes mellitus without complication, without long-term current use of insulin (CMS/HCC) Back spasm Other symptoms referable to back Closed fracture of proximal end of left fibula with routine healing, unspecified fracture morphology, subsequent encounter Closed nondisplaced fracture of second metatarsal bone of left foot with routine healing, subsequent encounter Other hyperlipidemia (CMS/HCC) Hyperuricemia Other abnormal blood chemistry Osteoporosis, unspecified osteoporosis type, unspecified pathological fracture presence (CMS/HCC) Diabetic polyneuropathy associated with type 2 diabetes mellitus (CMS/HCC) Gastroesophageal reflux disease without esophagitis Esophageal reflux Migraine with aura and without status migrainosus, not intractable (CMS/HCC) Hospital discharge follow-up Other follow-up examination Type 2 diabetes mellitus with diabetic microalbuminuria, without long-term current use of insulin (CMS/HCC)- Primary Other hyperlipidemia (CMS/HCC) Essential hypertension Unspecified essential hypertension Bilateral lower extremity edema Lumbar back pain- Primary Lumbago Hospital discharge follow-up Other follow-up examination Essential hypertension- Primary Unspecified essential hypertension Type 2 diabetes mellitus with diabetic microalbuminuria, without long-term current use of insulin (CMS/HCC) Morbid (severe) obesity due to excess calories (E66.01) Other hyperlipidemia ([facility]) Lumbar back pain Lumbago Type 2 diabetes mellitus without complication, without long-term current use of insulin ([facility]) Diabetic polyneuropathy associated with type 2 diabetes mellitus ([facility]) Mixed urge and stress incontinence Mixed incontinence urge and stress (male)(female) Snoring Other dyspnea and respiratory abnormality Encounter for long-term (current) use of high-risk medication Encounter for long-term (current) use of other medications Type 2 diabetes mellitus with diabetic microalbuminuria, without long-term current use of insulin ([facility])- Primary Essential hypertension Unspecified essential hypertension Other hyperlipidemia ([facility]) Snoring Other dyspnea and respiratory abnormality Mixed urge and stress incontinence Mixed incontinence urge and stress (male)(female) documented in this encounter [facility] Narrative - Reported* Type Description Date Medical History GERD (gastroesophageal reflux di sease) Medical History Migraine headache Medical History Arthritis Medical History Edema of both legs Medical History Diabetes mellitus, type 2 Medical History Chronic back pain Surgical History ablasion Surgical History back surgery Surgical History hysterectomy Surgical History tubal ligation Hospitalization History see above [facility] Other Summary Purpose Family History Relationship Condition Age at Onset Recorded Date/T samreen Not Specified Heart disease Unknown Diabetes mellitus Unknown Advance Directives Advance Directive Response Recorded Date/ Time Advance Directives No January 12, 2017 9:25pm Chief Complaint and Reason for Visit Chief Complaint 4-6 WEEK RECHECK Additional Source Comments Care Teams (unrecognized sec tion and content) Analysis Reporting Developer Relationship Specialty Start Date End Date Sr Jonathan Edwards DO [address] [place] [address] PCP - General Family Medicine 08/30/21 Analysis Reporting Developer Relationship Specialty Start Date End Date Shaikh [...] April 30, 2023 End: April 30, 2023 Analysis Reporting Developer Relationship Specialty Start Date End Date Jose Chandler MD [address] [place] [phone] PCP - General Family Medicine 12/12/23 Ijeoma Drake NP [address] [place] [address] Nurse Practitioner Family Medicine 09/24/23 Analysis Reporting Developer Relationship Specialty Start Date End Date Jose Chandler MD [address] [place] [phone] PCP - General Family Medicine 12/12/23 Ijeoma Drake NP [address] [place] [address] Nurse Practitioner Family Medicine 09/24/23 Analysis Reporting Developer Relationship Specialty Start Date End Date Jose Chandler MD [address] [place] [phone] PCP - General Family Medicine 12/12/23 Ijeoma Drake NP [address] [place] [address] Nurse Practitioner Family Medicine 09/24/23 Analysis Reporting Developer Relationship Specialty Start Date End Date Jose Chandler MD [address] [place] [phone] PCP - General Family Medicine 12/12/23 Ijeoma Drkae NP [address] [place] [phone] Nurse Practitioner Family Medicine 09/24/23 Analysis Reporting Developer Relationship Specialty Start Date End Date Jose Chandler MD [address] [place] [phone] PCP - General Family Medicine 12/12/23 Ijeoma Drake NP [address] [place] [address] Nurse Practitioner Family Medicine 09/24/23 Analysis Reporting Developer Relationship Specialty Start Date End Date Jose Chandler MD [address] [place] [address] PCP - General Family Medicine 12/12/23 Ijeoma Drake NP [address] [place] [address] Nurse Practitioner Family Medicine 09/24/23 INFORMATION SOURCE (unrecogn ized section and content) DATE CREATED AUTHOR 09/10/2021 [facility] DATE CREATED AUTHOR AUTHOR'S ORGANIZ ATION 06/08/2022 [facility] DATE CREATED AUTHOR AUTHOR'S ORGANIZ ATION 10/06/2023 [facility] DATE CREATED AUTHOR AUTHOR'S ORGANIZ ATION 01/01/2024 [facility] EPIC REASON FOR VISIT (unrecogniz ed section and content) Reason Onset Date Comments Med Refill 12/17/2023 Reason Comments Med Refill Reason Comments Sleep Apnea Reason Comments Diabetes Goals (unrecognized section and content) Goals may [...] BE BASED ON THE PRIMARY CLINICAL RECORDS. [facility] [employer] [facility]. provides no warranty or guarantee of the accuracy or completeness of information in this document.
[2024-01-14 08:40] VITALS: BP 128/76; PULSE 94; TEMP 36.2; O2SAT 97
[2024-01-14] MEDS: 0.9 % SODIUM CHLORIDE 500 ML IV (08:53)
[2024-01-14] MEDS: BUPIVACAINE HCL 0.25% PF 25 MG/10 ML VIAL 4 ML INJ (10:01)
[2024-01-14] MEDS: LIDOCAINE HCL 2% 400 MG/20 ML MDV 7 ML INJ (10:01)
[2024-01-14 10:02] VITALS: BP 129/65; PULSE 110; TEMP 36.3; O2SAT 95
[2024-01-14] MEDS: METHYLPREDNISOLONE ACETATE 40 MG/ML VIAL INJ (10:02)
[2024-01-14 10:06] VITALS: BP 100/59; PULSE 108; TEMP 36.3; O2SAT 94
--- NOTE | 2024-01-14 10:09 | W.PM.PROCNOT ---
Date of procedure: 01/14/24 Pre-op diagnosis: lumbar spondylosis Post-op diagnosis: same as pre-op Procedure: Right Lumbar 4/5, 5/sacral 1 Radiofrequency ablation Under fluoroscopic guidance Rhizotomy was created using radio frequency ablation at 80?C for 90 seconds 1 to 2 lesions created at each site. Post lesioning injection of 2 mL each of 0.25% Marcaine and 2% lidocaine with Depo-Medrol 40mg. 0.5 to 1 mL injected at each site IV in place yes If Intravenous fluids: NS at KVO Anesthesia local 2% lidocaine for Anesthesia Other: MAC Timeout process compliant After informed consent obtained.Patient brought to the procedure room placed in the prone position skin overlying the area was prepped and draped in a sterile fashion using betadine. 25 gauge needle was used to create a skin wheal over each of the targeted areas utilizing 2% lidocaine. A rhizotomy needle with a 10 mm active tip was inserted over each of the anesthetized areas and directed towards each of the medial branches accomplished under fluoroscopic guidance. after encountering the same we had positive sensory stimulation, negative motor stimulation was noted. lesions were then created. Post lesioning, steroid solution was injected needles removed. Patient was transferred to recovery room in stable condition to be discharged home after meeting criteria. Anesthesia: MAC Surgeon: Kenyon Bradford Condition: stable
== END 2024-01-14 10:28 | disposition home or self-care (01) ==
LOC: SURGOUT 08:17
PROVIDERS: Visit Provider Anesthesiology Pain Medicine
DX: M47.816 Spondylosis without myelopathy or radiculopathy, lumbar region (principal)
CPT/HCPCS: 36415; 64635; 64636; 82948; J0665; J1010; J2704

== ENCOUNTER 2024-01-21 19:51 | Outpatient (OUT) | payer OTHER, MEDICARE, SELFPAY ==
--- OUTSIDE RECORDS SUMMARY | 2024-01-21 19:55 | XMS_ITS | CCD ---
Author Organization [facility] Care Team Providers Care 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 Name Role Phone House DO, Sr Jonathan Klein Primary Care Provider BARCLAYRADHA Referring Unavailabl e HOUSE, SR JONATHAN Klein [...] Admitting Unavailable HOUSE, DR BASURTO Attending Unavailable SCHENECTADY, DR BASURTO Primary Care Unavailable INDIANOLA, DR RYAN Guzman Consulting Unavailable HOUSE, DR JONATHAN Trimble Unavailable HOLM ., DR RICARDO Belcher Admitting Unavailable HOUSE, DR BASURTO Primary Care Unavailable HOLM ., DR RICARDO Belcher Attending Unavailable HOLM ., DR RICARDO Belcher Consulting Unavailable HOLM ., DR RICARDO Belchre Admitting Unavailable HOUSE, DR BASURTO Primary Care [...] Unavailable Shaikh Connelly MD Primary Care Provider Vidal HIGGINS, Sonam Unavailable Jose Chandler MD Primary Care Provider ALICIA GARCIA Attending Unavailable SHAIKH CONNELLY Attending Unavailable SHAIKH CONNELLY Attending Unavailable SHAIKH CONNELLY Attending Unavailable SHAIKH CONNELLY Attending Unavailable SONAM DRAKE Attending UnavailSHAIKH Knott Attending Unavailable SONAM DRAKE Attending UnavailSIVAN Cruz Attending Unavailable SONAM DRAKE Referring Unavailcurtis stokes Medications Current Medications [...] 2017 1:00am baclofen 20 mg oral tablet (10 sources) gamma-Aminobutyric Acid-ergic Agonist Start: 08-22-2023 End: 04-13-2024 take 1 tablet by mouth three times daily as needed for muscle spasms baclofen (Lioresal) 20 MG tablet Indications: Lumbar back pain Take 1 tablet (20 mg) by mouth 3 (three) times a day as needed for muscle spasms 90 tablet 2 01/14/2024 04/13/2024 Active take 1 tablet by mouth at [...] day Active famotidine 20 mg oral tablet (11 sources) Histamine-2 Receptor Antagonist Start: 07-04-2023 End: [...] 08/16/2021 Active glimepiride 1 mg oral tablet (6 sources) Sulfonylurea Start: 09-03-2023 take 1 tablet [...] 1:00am metFORMIN hydrochloride 500 mg oral tablet (16 sources) Biguanide Start: 08-05-2023 take 1 tablet by mouth in the morning metFORMIN (Glucophage) 500 MG tablet Indications: Type 2 diabetes mellitus with diabetic microalbuminuria, without long-term current use of insulin (CMS/[facility]) Take 1 tablet (500 mg) by mouth [...] MG/DOSE) Active pregabalin 75 mg oral capsule (20 sources) Start: 11-02-19 24 End: 03-16-19 25 take 1 capsule by mouth in the [...] day Active take 1 capsule by mo [facility] twice daily pregabalin (LYRICA) 50 MG capsule Lyrica 50 mg capsule Take 1 capsule twice a day by oral route. 0 Active Probiotic (5 sources) Probiotic Active raNITIdine 150 mg oral tablet (5 sources) Histamine-2 Receptor Antagonist take 1 tablet by mouth twice daily Ranitidine HCl 150 MG 1 Tablet Orally bid Active rizatriptan 10 mg oral tablet (10 sources) Serotonin-1b and Serotonin-1d Receptor Agonist Start: [...] Active rosuvastatin calcium 20 mg oral tablet (12 sources) HMG-CoA Reductase Inhibitor Start: take 1 tablet by mouth once daily rosuvastatin (Crestor) 20 MG tablet Indications: Other hyperlipidemia (CMS/HCC) Take 1 tablet (20 mg) by mouth Daily 90 tablet 1 10/03/2023 Active take 1 tablet by alonso th every twenty-four hours Crestor 20 MG 1 tablet Orally Once a day Active traZODone hydrochloride 50 mg oral tablet (1 source) Serotonin Reuptake Inhibitor Start: 08-17-2021 take 1 tablet by mouth once daily at bedtime traZODone (DESYREL) 50 MG tablet TAKE 1 TABLET BY MOUTH EVERY NIGHT AT BEDTIME 0 08/17/2021 Active divalproex sodium 500 mg delayed release oral tablet (17 sources) Mood Stabilizer, Anti-epileptic Agent Start: 07-04-2023 [...] flares, 30 day supply 60 mL 02/25/2023 12/31/2023 Discontinued (Med list cleanup) colchicine [...] 12, 2017 1:00am January 15, 2017 2:23pm Ecnrdfydzdem-Kd-Rg on-Minerals (Multiple Vitamin, Womens) Tablet (1 source) Start: 01-12-2017 End: 01-15-2017 Uudxmhoenuvu-Bf-Lk on-Minerals (Multiple Vitamin, Womens) Tablet Discontinued PO [...] complication, without long-term current use of insulin (CMS/[facility]) Inject 1 mg under the skin 1 [...] unspecified] 01-23-2023 Episodic Diabetes mellitus with complications (13 sources) Polyneuropathy due to type 2 diabetes mellitus; Translations: [Type 2 diabetes mellitus with diabetic polyneuropathy] Onset: 01-29-2023 03-21-2023 Chronic Diabetes mellitus without complication (7 sources) Type 2 diabetes mellitus without complications; Translations: [Type 2 diabetes mellitus without complication] Onset: 07-05-2021 Chronic Disorders of lipid metabolism (11 sources) Hyperlipidemia; Translations: [Other hyperlipidemia] Onset: 05-02-2023 05-02-2023 Chronic Essential hypertension (13 sources) Essential (primary) hypertension; Translations: [Hypertensive disorder] Onset: 04-16-2022 01-13-2017 Chronic Genitourinary symptoms and ill-defined conditions (11 sources) Incontinence; Translations: [Mixed incontinence] Onset: 10-03-2023 10-03-2023 Chronic Genitourinary symptoms and ill-defined conditions (7 sources) Increased frequency of urination; Translations: [Frequency of micturition] Onset: 12-30-2023 12-30-2023 Episodic Gout and other crystal arthropathies (12 sources) Gout; Translations: [Gout, unspecified] Chronic Headache; including migraine (10 sources) Migraine with aura; Translations: [Migraine with [...] Chronic Other nutritional; endocrine; and metabolic disorders (9 sources) Obesity caused by energy imbalance; Translations: [Morbid (severe) obesity due to excess calories] Onset: 05-02-2023 05-02-2023 Chronic Other nutritional; endocrine; and metabolic disorders (9 sources) Body mass index 40+ - severely [...] or radiculopathy, lumbosacral region] Onset: 07-19-2021 Chronic Spondylosis; intervertebral disc disorders; other back problems (20 sources) Muscle spasm of back; Translations: [Sacrococcygeal disorders, not elsewhere classified] Onset: 07-05-2021 07-04-2023 Episodic Unclassified (4 sources) LOW BACK PAIN, UNSPECIFIED; Translations: [LOW BACK PAIN, UNSPECIFIED] Onset: 06-23-2021 Past or Other Problems Problem Classification Problem Date Documented Da te Episodic/Chronic Fracture of lower limb (18 sources) Metatarsal bone fracture; Translations: [Fracture of unspecified metatarsal bone(s), unspecified foot, initial encounter for closed fracture] Onset: 07-04-2023 07-04-2023 Episodic Other aftercare (9 sources) Post-discharge follow-up; Translations: [Encounter for follow-up examination after completed treatment for conditions other than malignant neoplasm] Onset: 07-04-2023 07-04-2023 Episodic Other and unspecified benign neoplasm (9 sources) Melanocytic nevus of trunk; Translations: [Melanocytic [...] HAND FINGERS INIT] Onset: 11-16-2021 Episodic Other lower respiratory disease (13 sources) Snoring; Translations: [Snoring] Onset: 10-03-2023 10-03-2023 Episodic Other non-epithelial cancer of skin (10 sources) Basal cell carcinoma of nose; Translations: [Basal cell carcinoma of skin of nose] Onset: 01-29-2023 01-29-2023 Episodic Other non-traumatic joint disorders (4 sources) Pain in left knee; Translations: [PAIN IN LEFT KNEE] Onset: 02-16-2022 Episodic Other screening for suspected conditions (not mental disorders or infectious disease) (20 sources) Patient encounter status; Translations: [Encounter for screening for malignant neoplasm of cervix] Onset: 01-29-2023 Episodic Other upper respiratory infections (10 sources) Acute upper respiratory infection; Translations: [Acute upper respiratory infection, unspecified] Onset: 01-29-2023 01-29-2023 Episodic Residual codes; unclassified (9 sources) Bilateral lower limb edema; Translations: [Localized edema] Onset: 08-05-2023 08-05-2023 Episodic Unclassified (1 source) LOW BACK PAIN, UNSPECIFIED; Translations: [LOW BACK PAIN, UNSPECIFIED] Onset: 06-20-2021 Results Test Name Value Interpretation Reference Range Facility ALL CBC WITH AUTO DIFFon BASOPHILS ABSOLUTE AUTO 0.1 [facility] Basophils/100 WBC (Bld) 0.4 % 0.2 - 2.0 % [facility] Eosinophils/100 WBC (Bld) 3.2 % 0.9 - 7.0 % [facility] Erythrocyte distribution width (RBC) [Ratio] 15.6 % High 11.0 - 15.0 % [facility] Hematocrit (Bld) [Volume fraction] 42.4 % 36.0 - 48.0 % [facility] [Mass/Vol] 13.9 g/dL 12.0 - 16.0 g/dL [facility] IMMATURE GRANULOCYTES ABS AUTO 0.09 High [facility] Immature granulocytes/100 WBC (Bld) 0.7 % High 0.0 - 0.5 % [facility] Interpretation and review of laboratory results Abnormal [facility] LYMPHOCYTES ABSOLUTE AUTO 3.5 [facility] Lymphocytes/100 WBC (Bld) 27.7 % 20.5 - 60.0 % [facility] MCH (RBC) [Entitic mass] 31.4 pg 26.7 - 34.0 pg [facility] MCHC (RBC) [Mass/Vol] 32.8 g/dL 29.9 - 35.2 g/dL [facility] MCV (RBC) [Entitic vol] 95.7 fL 81.0 - 99.0 fL [facility] MONOCYTES ABSOLUTE AUTO 0.9 High [facility] Monocytes/100 WBC (Bld) 7.4 % 1.7 - 12.0 % [facility] NEUTROPHILS ABSOLUTE AUTO 7.7 High [facility] Neutrophils/100 WBC (Bld) 60.6 % 43.0 - 75.0 % [facility] Platelet mean volume (Bld) [Entitic vol] 10.9 [...] Date: 2022-06-07 11:15 Normal [facility] CBC AUTO DIFFon 04-12-2022 BASO # 0.1 103/ul Normal 0.0-0.1 [facility] Comment on above: Performed By: #### C BC ####[facility] [address] [place] [address]Dr. Ricky Valenzuela Basophils/100 WBC (Bld) 0.5 % Normal 0.2-2.0 [facility] Comment on above: Performed By: #### C BC ####[facility] [address] [place], [place] [address]Gp. Ricky Valenzuela EO # 0.3 103/ul Normal 0.0-0.7 [facility] Comment on above: Performed By: #### C BC ####[facility] [address] [place] [id number]. Ricky Valenzuela Eosinophils/100 WBC (Bld) 3.0 % Normal 0.9-7.0 [facility] Comment on above: Performed By: #### C BC ####[facility] [address] [place] [address]Dr. Ricky Valenzuela Erythrocyte distribution width (RBC) [Ratio] 14.8 % Normal 11.0-15.0 [facility] Comment on above: Performed By: #### C BC ####[facility] [address] [place] [address]Dr. Ricky Valenzuela Hematocrit (Bld) [Volume fraction] 40.6 % Normal 36.0-48.0 [facility] Comment on above: Performed By: #### C BC ####[facility] [address] [place], [place] [address]Dr. Ricky Valenzuela Hemoglobin (Bld) [Mass/Vol] 13.5 g/dL Normal 12.0-16.0 [facility] Comment on above: Performed By: #### C BC ####[facility] [address] [place], [place] [address]Dr. Ricky Valenzuela IG # 0.16 10e3/ul Critically high 0.00-0.03 [facility] Comment on above: Performed By: #### C BC ####[facility] [address] [place], [place] [address]Dr. Ricky Valenzuela IG % 1.4 % Critically high 0.0-0.5 [facility] [place] [facility] Comment on above: Performed By: #### C BC ####[facility] [address] [place], [place] [address]Dr. Ricky Valenzuela LYMPH # 3.4 103/ul Normal 1.2-3.8 [facility] Comment on above: Performed By: #### C BC ####[facility] [address] [place], [place] [address]Dr. Ricky Valenzuela Lymphocytes/100 WBC (Bld) 30.4 % Normal 20.5-60.0 [facility] Comment on above: Performed By: #### C BC ####[facility] [address] [place], [place] [address]Dr. Ricky Valenzuela MANUAL DIFF REQ NO Normal [facility] Comment on above: Performed By: #### C BC ####[facility] [address] [place] [id number]. Ricky Nicolas MCH (RBC) [Entitic mass] 31.8 pg Normal 26.7-34.0 [facility] Comment on above: Performed By: #### C BC ####[facility] [address] [place] [id number]. Lesleysharron Nicolas MCHC (RBC) [Mass/Vol] 33.3 g/dL Normal 29.9-35.2 [facility] Comment on above: Performed By: #### C BC ####[facility] [address] [place] [address]Dr. Ricky Valenzuela MCV (RBC) [Entitic vol] 95.5 fL Normal 81.0-99.0 [facility] Comment on above: Performed By: #### C BC ####[facility] [address] [place], [place] [address]DrPasquale Valenzuela MONO # 0.9 103/ul Critically high 0.3-0.8 [facility] [place] [facility] Comment on above: Performed By: #### C BC ####[facility] [address] [place], [place] [address]Dr. Ricky Valenzuela Monocytes/100 WBC (Bld) 7.7 % Normal 1.7-12.0 [facility] Comment on above: Performed By: #### C BC ####[facility] [address] [place], [place] [address]Dr. Ricky Valenzuela NEUT # 6.3 103/ul Normal 1.4-6.5 [facility] Comment on above: Performed By: #### C BC ####[facility] [address] [place], [place] [id number] Valenzuela Neutrophils/100 WBC (Bld) 57.0 % Normal 43.0-75.0 [facility] Comment on above: Performed By: #### C BC ####[facility] [address] [place], [place] [id number] Valenzuela Platelet mean volume (Bld) [Entitic vol] 9.8 fL Normal 9.5-13.5 [facility] Comment on above: Performed By: #### C BC ####[facility] [address] [place] [address]DrPasquale Valenzuela PLT 246 103/ul Normal 150-450 [facility] Comment on above: Performed By: #### C BC ####[facility] [address] [place] [id number] Valenzuela RBC 4.25 106/ul Normal 4.20-5.40 [facility] Comment on above: Performed By: #### C BC ####[facility] [address] [place] [id number] Valenzuela WBC 11.1 103/ul Critically high 4.0-11.0 [facility] Comment on above: Performed By: #### C BC ####[facility] [address] [place] [address]Dr. Ricky Valenzuela GLYCOHEMOGLOBIN A1Con 2022 ADA RECOMMENDATION SEE BELOW Normal [facility] Comment on above: Result Comment: ADA RECOMMENDED LIMIT 4.0 - 6.0 ADA THERAPEUTIC TARGET < 7.0 ACTION SUGGESTED > 7.0 Performed By: #### A 1C ####[facility] [address] [place] [address]Dr. Ricky Valenzuela Glucose [Mass/Vol] 160 mg/dL Normal [facility] Comment on above: Performed By: #### A 1C ####[facility] [address] [place] [address]Dr. Ricky Valenzuela HbA1c (Bld) [Mass fraction] 7.2 % Critically high 4.5-6.2 [facility] Comment on above: Performed By: #### A 1C ####[facility] [address] [place] [address]Dr. Ricky Valenzuela MICROALBUMIN, RAND URon - mALB <1.3 Normal <=30.0 [facility] Comment on above: Performed By: #### M ALBR #### [facility] [id number] Ricky Valenzuela PROF 14(COMP METB)on 023 Albumin [Mass/Vol] 3.3 g/dL Critically low 3.4-5.0 Th e [facility] Comment on above: Performed By: #### C MP #### [facility] [address] [place] [address] Dr. Ricky Valenzuela Albumin/Globulin [Mass ratio] 0.9 {ratio} Normal [facility] Comment on above: Performed By: #### C MP #### [facility] [address] [place] [address] Dr. Ricky Valenzuela ALP [Catalytic activity/Vol] 90 U/L Normal 46-116 [facility] Comment on above: Performed By: #### C MP #### [facility] [address] [place] [address] Dr. Ricky Valenzuela ALT [Catalytic activity/Vol] 42 U/L Normal 14-59 [facility] Comment on above: Performed By: #### C MP #### [facility] [address] [place] [address] Dr. Ricky Valenzuela Anion gap [Moles/Vol] 10.1 mmol/L Normal [facility] Comment on above: Performed By: #### C MP #### [facility] [address] [place] [address] Dr. Ricky Valenzuela AST [Catalytic activity/Vol] 21 U/L Normal 15-37 [facility] Comment on above: Performed By: #### C MP #### [facility] [address] [place] [address] Dr. Ricky Valenzuela Bilirubin [Mass/Vol] 0.3 mg/dL Normal 0.2-1.0 [facility] Comment on above: Performed By: #### C MP #### [facility] [address] [place] [address] Dr. Ricky Valenzuela Calcium [Mass/Vol] 9.8 mg/dL Normal 8.5-10.1 [facility] Comment on above: Performed By: #### C MP #### [facility] [address] [place] [address] Dr. Ricky Valenzuela Chloride [Moles/Vol] 99 mmol/L Normal 98-107 [facility] Comment on above: Performed By: #### C MP #### [facility] [address] [address] [address] Ricky Valenzuela CO2 [Moles/Vol] 33.7 mmol/L Critically high 21.0-32.0 [facility] Comment on above: Performed By: #### C MP #### [facility] [address] [address] [address] Ricky Valenzuela Creatinine [Mass/Vol] 0.94 mg/dL Normal 0.55-1.02 [facility] Comment on above: Performed By: #### C MP #### [facility] [address] [place] [address] Dr. Ricky Valenzuela EGFR-AF MAURITIAN >60 Normal >=60 [facility] Comment on above: Performed By: #### C MP #### [facility] [address] [address] [address] Ricky Valenzuela EGFR-NON AF MAURITIAN >60 Normal >=60 [facility] Comment on above: Performed By: #### C MP #### [facility] [address] [address] [address] Ricky Valenzuela Globulin (S) [Mass/Vol] 3.8 g/dL Normal [facility] Comment on above: Performed By: #### C MP #### [facility] [address] [address] [address] Ricky Valenzuela Glucose [Mass/Vol] 168 mg/dL Critically high 74-106 [facility] Comment on above: Performed By: #### C MP #### [facility] [address] [address] [address] Ricky Valenzuela Potassium [Moles/Vol] 4.8 mmol/L Normal 3.5-5.1 [facility] Comment on above: Performed By: #### C MP #### [facility] [address] [address] [address] Ricky Valenzuela Protein [Mass/Vol] 7.1 g/dL Normal 6.4-8.2 [facility] Comment on above: Performed By: #### C MP #### [facility] [address] [address] [address] Ricky Valenzuela Sodium [Moles/Vol] 138 mmol/L Normal 136-145 [facility] Comment on above: Performed By: #### C MP #### [facility] [address] [address] [address] Ricky Valenzuela Urea nitrogen [Mass/Vol] 22.0 mg/dL Critically high 7.0-18.0 [facility] Comment on above: Performed By: #### C MP #### [facility] [address] [address] [address] Ricky Valenzuela Urea nitrogen/Creatinine [Mass ratio] 23.4 mg/mg Normal [facility] Comment on above: Performed By: #### C MP #### [facility] [address] [address] [address] Ricky Valenzuela Cytologyon 08-30-2021 Cytology (NOTE) INTERPRETATION Vaginal material, (ThinPrep vial, Imaging-assisted review): Specimen Adequacy: Satisfactory for evaluation. Descriptive Diagnosis: Negative for intraepithelial lesion or malignancy. Bus Driver/Monitor: CLARK Delacruz(ASCP) Electronically Signed Out ss/09/07/2021 Source: A: Vaginal material, (ThinPrep vial, Imaging-assisted review) Clinical History Hysterectomy Surgery: Salpingostomy; Ovary removal Z12.4 Encounter for screening for malignant neoplasm of cervix GYNECOLOGIC CYTOLOGY REPORT Patient Name: KARINA DE OLIVEIRA [facility] Rec: [id number] Path Number: [id number] [facility] ANATOMIC PATHOLOGY [facility] [place], [place] [address] Normal [facility] Comment on above: Performed By: #### P PPVP #### [facility] [address] [place] [id number] Crab Fisherman: Luca Cummins MD CBC AUTO DIFFon 08-09-2021 BASO # 0.1 103/ul Normal 0.0-0.1 [facility] Comment on above: Performed By: #### C BC #### [facility] [address] [address] [address] Ricky Valenzuela Basophils/100 WBC (Bld) 0.8 % Normal 0.2-2.0 [facility] Comment on above: Performed By: #### C BC #### [facility] [address] [address] [address] Ricky Valenzuela EO # 0.2 103/ul Normal 0.0-0.7 [facility] Comment on above: Performed By: #### C BC #### [facility] [address] [address] [address] Ricky Valenzuela Eosinophils/100 WBC (Bld) 2.1 % Normal 0.9-7.0 [facility] Comment on above: Performed By: #### C BC #### [facility] [address] [place] [address] Dr. Ricky Valenzuela Erythrocyte distribution width (RBC) [Ratio] 15.2 % Critically high 11.0-15.0 [facility] Comment on above: Performed By: #### C BC #### [facility] [address] [place] [address] Dr. Ricky Valenzuela Hematocrit (Bld) [Volume fraction] 41.5 % Normal 36.0-48.0 [facility] Comment on above: Performed By: #### C BC #### [facility] [address] [place] [address] Dr. Ricky Valenzuela Hemoglobin (Bld) [Mass/Vol] 13.5 g/dL Normal 12.0-16.0 [facility] Comment on above: Performed By: #### C BC #### [facility] [address] [address] [address] Ricky Valenzuela IG # 0.42 10e3/ul Critically high 0.00-0.03 [facility] Comment on above: Performed By: #### C BC #### [facility] [address] [address] [address] Ricky Valenzuela IG % 3.8 % Critically high 0.0-0.5 [facility] [place] [facility] Comment on above: Performed By: #### C BC #### [facility] [address] [place] [address] Dr. Ricky Valenzuela LYMPH # 3.3 103/ul Normal 1.2-3.8 [facility] Comment on above: Performed By: #### C BC #### [facility] [address] [place] [address] Dr. Ricky Valenzuela Lymphocytes/100 WBC (Bld) 29.1 % Normal 20.5-60.0 [facility] Comment on above: Performed By: #### C BC #### [facility] [address] [place] [address] Dr. Ricky Valenzuela MANUAL DIFF REQ NO Normal [facility] [place] [facility] Comment on above: Performed By: #### C BC #### [facility] [address] [place] [address] Dr. Ricky Valenzuela MCH (RBC) [Entitic mass] 32.4 pg Normal 26.7-34.0 [facility] Comment on above: Performed By: #### C BC #### [facility] [address] [place] [address] Dr. Ricky Valenzuela MCHC (RBC) [Mass/Vol] 32.5 g/dL Normal 29.9-35.2 [facility] Comment on above: Performed By: #### C BC #### [facility] [address] [place] [address] Dr. Ricky Valenzuela MCV (RBC) [Entitic vol] 99.5 fL Critically high 81.0-99.0 [facility] Comment on above: Performed By: #### C BC #### [facility] [address] [place] [address] Dr. Ricky Valenzuela MONO # 0.8 103/ul Normal 0.3-0.8 [facility] Comment on above: Performed By: #### C BC #### [facility] [address] [place] [address] Dr. Ricky Valenzuela Monocytes/100 WBC (Bld) 7.5 % Normal 1.7-12.0 [facility] Comment on above: Performed By: #### C BC #### [facility] [address] [address] [address] Ricky Valenzuela NEUT # 6.3 103/ul Normal 1.4-6.5 [facility] Comment on above: Performed By: #### C BC #### [facility] [address] [address] [address] Ricky Valenzuela Neutrophils/100 WBC (Bld) 56.7 % Normal 43.0-75.0 [facility] Comment on above: Performed By: #### C BC #### [facility] [address] [address] [address] Ricky Valenzuela Platelet mean volume (Bld) [Entitic vol] 9.8 fL Normal 9.5-13.5 [facility] Comment on above: Performed By: #### C BC #### [facility] [address] [address] [address] Ricky Valenzuela PLT 265 103/ul Normal 150-450 [facility] Comment on above: Performed By: #### C BC #### [facility] [address] [address] [address] Ricky Valenzuela RBC 4.17 106/ul Critically low 4.20-5.40 [facility] Comment on above: Performed By: #### C BC #### [facility] [address] [address] [address] Ricky Valenzuela WBC 11.2 103/ul Critically high 4.0-11.0 [facility] Comment on above: Performed By: #### C BC #### [facility] [address] [address] [address] Ricky Valenzuela GLYCOHEMOGLOBIN A1Con 2021 ADA RECOMMENDATION SEE BELOW Normal [facility] Comment on above: Result Comment: ADA RECOMMENDED LIMIT 4.0 - 6.0 ADA THERAPEUTIC TARGET < 7.0 ACTION SUGGESTED > 7.0 Performed By: #### A 1C ####[facility] [id number] [id number]. Ricky Valenzuela Glucose [Mass/Vol] 183 mg/dL Normal [facility] Comment on above: Performed By: #### A 1C ####[facility] [id number] [address]Dr. Ricky Valenzuela HbA1c (Bld) [Mass fraction] 8.0 % Critically high 4.5-6.2 [facility] Comment on above: Performed By: #### A 1C ####[facility] [id number] [address]Dr. Ricky Valenzuela LIPID PROFILEon 08-09-2021 CHOL-HDL RATIO NORM SEE BELOW Normal [facility] Comment on above: Result Comment: 3.3 - 4.4 LOW RISK 4.4 - 7.1 AVERAGE RISK 7.1 - 11.0 MODERATE RISK >11.0 HIGH RISK Performed By: #### C MP, LIPID #### [facility] [address] [address] [address] Ricky Valenzuela Cholesterol [Mass/Vol] 239 mg/dL Critically high <=200 [facility] Comment on above: Performed By: #### C MP, LIPID #### [facility] [address] [address] [address] Ricky Valenzuela Cholesterol in HDL [Mass/Vol] 36 mg/dL Critically low 40-60 [facility] Comment on above: Performed By: #### C MP, LIPID #### [facility] [address] [address] [address] Ricky Valenzuela Cholesterol in LDL [Mass/Vol] 164.2 mg/dL Normal [facility] Comment on above: Performed By: #### C MP, LIPID #### [facility] [address] [address] [address] Ricky Valenzuela Cholesterol.total/Ch olesterol in HDL [Mass ratio] 6.6 {ratio} Normal [facility] Comment on above: Performed By: #### C MP, LIPID #### [facility] [address] [address] [address] Ricky Valenzuela HDL NORMAL > or = 60 mg/dl - LOW CARDIOVASCULAR RISK <40 mg/dl - HIGH CARDIOVASCULAR RISK Normal [facility] Comment on above: Performed By: #### C MP, LIPID #### [facility] [address] [address] [address] Ricky Valenzuela LDL CALC NORMAL SEE BELOW Normal [facility] Comment on above: Result Comment: <100 mg/dl OPTIMAL 100 - 129 mg/dl NEAR OR ABOVE OPTIMAL 130 - 159 mg/dl BORDERLINE HIGH 160 - 189 mg/dl HIGH >190 mg/dl VERY HIGH Performed By: #### C MP, LIPID #### [facility] [address] [address] [address] Ricky Valenzuela Triglyceride [Mass/Vol] 194 mg/dL Critically high <=150 [facility] Comment on above: Performed By: #### C MP, LIPID #### [facility] [address] [address] [address] Ricky Vaelnzuela VLDL CALC 38.8 mg/dL Normal [facility] Comment on above: Performed By: #### C MP, LIPID #### [facility] [address] [place] [address] Dr. Ricky Valenzuela MICROALBUMIN, RAND URon 07-13 mALB 13.1 mg/L Normal <=30.0 [facility] Comment on above: Performed By: #### M ALBR ####[facility] [id number] [address]Dr. Ricky Valenzuela PROF 14(COMP METB)on 022 Albumin [Mass/Vol] 3.3 g/dL Critically low 3.4-5.0 [facility] Comment on above: Performed By: #### C MP, LIPID #### [facility] [address] [address] [address] Ricky Valenzuela Albumin/Globulin [Mass ratio] 0.8 {ratio} Normal [facility] Comment on above: Performed By: #### C MP, LIPID #### [facility] [address] [address] [address] Ricky Valenzuela ALP [Catalytic activity/Vol] 93 U/L Normal 46-116 [facility] Comment on above: Performed By: #### C MP, LIPID #### [facility] [address] [address] [address] Ricky Valenzuela ALT [Catalytic activity/Vol] 37 U/L Normal 14-59 [facility] Comment on above: Performed By: #### C MP, LIPID #### [facility] [address] [address] [address] Ricky Valenzuela Anion gap [Moles/Vol] 10.9 mmol/L Normal [facility] Comment on above: Performed By: #### C MP, LIPID #### [facility] [address] [address] [address] Ricky Valenzuela AST [Catalytic activity/Vol] 10 U/L Critically low 15-37 [facility] Comment on above: Performed By: #### C MP, LIPID #### [facility] [address] [address] [address] Ricky Valenzuela Bilirubin [Mass/Vol] 0.2 mg/dL Normal 0.2-1.0 [facility] Comment on above: Performed By: #### C MP, LIPID #### [facility] [address] [place] [address] Dr. Ricky Valenzuela Calcium [Mass/Vol] 9.0 mg/dL Normal 8.5-10.1 [facility] Comment on above: Performed By: #### C MP, LIPID #### [facility] [address] [place] [address] Dr. Ricky Valenzuela Chloride [Moles/Vol] 100 mmol/L Normal 98-107 [facility] Comment on above: Performed By: #### C MP, LIPID #### [facility] [address] [address] [address] Ricky Valenzuela CO2 [Moles/Vol] 32.2 mmol/L Critically high 21.0-32.0 [facility] Comment on above: Performed By: #### C MP, LIPID #### [facility] [address] [place] [address] Dr. Ricky Valenzuela Creatinine [Mass/Vol] 0.95 mg/dL Normal 0.55-1.02 [facility] Comment on above: Performed By: #### C MP, LIPID #### [facility] [address] [address] [address] Ricky Valenzuela EGFR-AF MAURITIAN >60 Normal >=60 [facility] Comment on above: Performed By: #### C MP, LIPID #### [facility] [address] [address] [address] Ricky Valenzuela EGFR-NON AF MAURITIAN >60 Normal >=60 [facility] Comment on above: Performed By: #### C MP, LIPID #### [facility] [address] [address] [address] Ricky Valenzuela Globulin (S) [Mass/Vol] 4.2 g/dL Normal [facility] Comment on above: Performed By: #### C MP, LIPID #### [facility] [address] [address] [address] Ricky Valenzuela Glucose [Mass/Vol] 200 mg/dL Critically high 74-106 [facility] Comment on above: Performed By: #### C MP, LIPID #### [facility] [address] [address] [address] Ricky Valenzuela Potassium [Moles/Vol] 4.1 mmol/L Normal 3.5-5.1 [facility] Comment on above: Performed By: #### C MP, LIPID #### [facility] [address] [address] [address] Ricky Valenzuela Protein [Mass/Vol] 7.5 g/dL Normal 6.4-8.2 [facility] Comment on above: Performed By: #### C MP, LIPID #### [facility] [address] [address] [address] Ricky Valenzuela Sodium [Moles/Vol] 139 mmol/L Normal 136-145 [facility] Comment on above: Performed By: #### C MP, LIPID #### [facility] [address] [address] [address] Ricky Valenzuela Urea nitrogen [Mass/Vol] 13.0 mg/dL Normal 7.0-18.0 [facility] Comment on above: Performed By: #### C MP, LIPID #### [facility] [address] [address] [address] Ricky Valenzuela Urea nitrogen/Creatinine [Mass ratio] 13.7 mg/mg Normal [facility] Comment on above: Performed By: #### C MP, LIPID #### [facility] [address] [address] [address] Ricky Valenzuela POINT OF CARE GLUCOSEon 05 Glucose [Mass/Vol] 176 mg/dL Critically high 74-106 T [facility] Comment on above: Performed By: #### P OCGLUC #### [facility] [address] [address] [address] Ricky Valenzuela Vital Signs Date Time Vital Sign Value Performing Clinician Faci lity 12-31-2023 10:06-0500 Body height 157.5 cm Sivan Solo DO Work Phone: [facility] 12-31-2023 10:06-0500 Body mass index (BMI) [Ratio] 39.14 kg/m2 Sivan Solo DO Work Phone: [facility] 12-31-2023 10:06-0500 Body weight 97.07 kg Sivan Solo DO Work Phone: [facility] 12-31-2023 10:06-0500 Diastolic blood pressure 72 mm[Hg] Sivan Solo DO Work Phone: [facility] 12-31-2023 10:06-0500 Heart rate 95 /min Sivan Solo DO Work Phone: [facility] 12-31-2023 10:06-0500 SaO2% (BldA) [Mass fraction] 97 % Sivan Solo DO Work Phone: [facility] 12-31-2023 10:06-0500 Systolic blood pressure 118 mm[Hg] Sivan Solo DO Work Phone: [facility] 12-30-2023 10:46-0500 Body mass index (BMI) [Ratio] 40.06 kg/m2 Sonam Mansfieldzpatrick [employer] Work Phone: [facility] 12-30-2023 10:46-0500 Body weight 99.34 kg Sonam Drake [employer] Work Phone: [address] [place] [phone] 10:46-0500 Diastolic blood pressure 74 mm[Hg] Sonam Riverpatrick [employer] Work Phone: [facility] 12-30-2023 10:46-0500 Heart rate 97 /min Sonam Riverpatrick [employer] Work Phone: [facility] 12-30-2023 10:46-0500 SaO2% (BldA) [Mass fraction] 98 % Sonam Riverpatrick [employer] Work Phone: [facility] 12-30-2023 10:46-0500 Systolic blood pressure 98 mm[Hg] Sonam Riverpatrick [employer] Work Phone: [facility] 01-18-2023 09:10-0500 Body height 156.21 cm Elle Dejesusmond Other [facility] Other 01-18-2023 09:10-0500 Body mass index (BMI) [Ratio] 42.82 kg/m2 Elle Dejesusmond Other [facility] Other 01-18-2023 09:10-0500 Body temperature 98.2 [degF] Elle Dejesusmond Other [facility] Other 01-18-2023 09:10-0500 Body weight 104.51 kg Elle Dejesusmond Other [facility] Other 01-18-2023 09:10-0500 Diastolic blood pressure 92 mm[Hg] Elle Dejesusmond Other [facility] Other 01-18-2023 09:10-0500 Respiratory rate 18 /min Elle Dejesusmond Other [facility] Other 01-18-2023 09:10-0500 SaO2% (BldA) [Mass fraction] 97 % Elle Dejesusmond Other [facility] Other 01-18-2023 09:10-0500 Systolic blood pressure 145 mm[Hg] Elle Hendricks Other [facility] Other Encounters Encounter Date Encounter Type Care Provider Facility Start: 01-14-2024 End: 01-14-2024 Refill Jolly Castaneda MA [facility] Comment on above: Lumbar back pain Start: 12-31-2023 End: 12-31-2023 Clinisync Result Encounter Sonam Drake [employer] Work Phone: [facility] Unsolicited Start: 12-31-2023 End: 12-31-2023 Clinisync Result Encounter Sonam Drake [employer] Work Phone: [facility] Unsolicited Start: 12-31-2023 End: 12-31-2023 Office consultation new/estab patient 60 min Sivan Villegas DO Work Phone: [facility] [address] Comment on above: JANETT (obstructive sle ep apnea) (Primary Dx); Hypersomnia; Snoring; Primary insomnia; Tobacco abuse Start: 12-31-2023 End: 12-31-2023 ambulatory SIVAN VILLEGAS Not Available Start: 12-30-2023 End: 12-30-2023 Bamboo flowsheet Sonam Princek [employer] Work Phone: [facility] Start: 12-30-2023 End: 12-30-2023 Bamboo flowsheet Sonam Valenciatrick [employer] Work Phone: [facility] Start: 12-30-2023 End: 12-30-2023 Office outpatient visit 15 minutes Sonam Drake [employer] Work Phone: [facility] Comment on above: Type 2 diabetes cory itus with diabetic microalbuminuria, without long-term current use of insulin ([facility]) (Primary Dx); Essential hypertension; Other hyperlipidemia (CMS/HCC); Snoring; Mixed urge and stress incontinence Start: 12-30-2023 End: 12-30-2023 ambulatory SONAM VALENCIATRICK Not Available Start: 12-17-2023 End: 12-17-2023 Refill Jolly Castaneda MA [facility] Comment on above: Migraine with aura a nd without status migrainosus, not intractable (CMS/HCC); Diabetic polyneuropathy associated with type 2 diabetes mellitus ([facility]/HCC) Start: 12-17-2023 End: 12-18-2023 Refill Sonam Drake NP Work Phone: [facility] Comment on above: Gout, unspecified ca use, unspecified chronicity, unspecified site Start: 10-04-2023 ambulatory Facility:[facility] Start: 10-03-2023 End: 10-03-2023 ambulatory SONAM DRAKE Not Available Start: 08-22-2023 End: 08-22-2023 ambulatory CRISTINA FAWWAD Not Available Start: 08-05-2023 End: 08-05-2023 ambulatory CRISTINA FAWWAD Not Available Start: 07-04-2023 End: 07-04-2023 ambulatory CRISTINA FAWWAD Not Available Start: 05-02-2023 End: 05-02-2023 ambulatory CRISTINA FAWWAD Not Available Start: 04-30-2023 End: 04-30-2023 ambulatory [facility] Work Phone: Start: 04-30-2023 End: 04-30-2023 Patient encounter procedure [facility] Work Phone: Start: 03-21-2023 Orders Only Shaikh Maricel HOLLIS Work Phone: [facility] Comment on above: Diabetic polyneuropa thy associated with type 2 diabetes mellitus ([facility]/HCC) (Primary Dx) Start: 03-19-2023 End: 03-19-2023 ambulatory Ana Luisa Curtis Other [facility] Other Start: 03-19-2023 Office outpatient vi sit 15 minutes Ana Luisa Calvey [facility] Start: 02-25-2023 End: 02-25-2023 ambulatory ALICIA GARCIA Not Available Start: 01-29-2023 End: 01-29-2023 ambulatory SHAIKH MARICEL Not Available Start: 01-23-2023 End: 01-23-2023 ambulatory Ana Luisa Calvey Other [facility] Other Start: 01-23-2023 Office outpatient vi sit 15 minutes Ana Luisa Calvey [facility] Start: 01-18-2023 End: 01-18-2023 ambulatory Elle Hendricks Other [facility] Other Start: 01-18-2023 Office outpatient vi sit 15 minutes Elle Ruthie [facility] Start: 09-19-2022 End: 09-19-2022 ambulatory Ana Luisajesus Curtis Other [facility] Other Start: 09-19-2022 Telephone encounter Ana Luisa Curtis [facility] Start: 07-12-[address] JONATHAN EDWARDS Facili ty:[facility] Start: 06-07-2022 End: 06-08-[address] JONATHAN EDWARDS Facility:[facility] Start: 05-02-2022 End: 05-02-2022 ambulatory Ana Luisa Curtis Other [facility] Other Start: 05-02-2022 Office outpatient ne w 30 minutes Ana Luisa Julianoey [facility] Start: 04-12-2022 End: 04-13-[address] JONATHAN EDWARDS Facility:[facility] Start: 03-08-2022 End: 03-09-[address] JONATHAN EDWARDS Facility:[facility] Start: 02-16-2022 End: 02-17-[address] JONATHAN EDWARDS Facility:[facility] Start: 02-09-2022 End: 02-10-[address] RICARDO HOLM . Facility:[facility] Start: 11-16-2021 End: 11-17-[address] JONATHAN EDWARDS Facility:[facility] Start: 11-01-2021 End: 11-02-2021 ambulatory CRYS PIERCE . Facility:[facility] Start: 08-30-2021 End: 08-31-2021 ambulatory RADHA BARCLAY [facility] Start: 08-30-2021 End: 08-30-2021 Subsequent hospital visit by physician Sr House DO Work Phone: [facility] Comment on above: Routine cervical sme ar Start: 08-16-2021 Encounter for genera l adult medical examination without abnormal findings DR RICARDO HOLM . [facility] Start: 08-09-2021 End: 08-10-2021 Encounter [...] Start: 12-31-2023 ALL CBC WITH AUTO DIFF Sonam Drake [employer] Work Phone: Start: 03-20-2023 Mammography Shaikh Marie calero MD Work Phone: Start: 08-30-2021 Microscopic observat ion [Identifier] in Cervix by Cyto stain House DO Work Phone: Plan of Treatment Date Care Activity Detail Author Start: 03-28-2026 Screening for malign ant neoplasm of colon [facility] Start: 03-08-2026 Screening for malign ant neoplasm of colon [facility] Start: 12-30-2024 Urine screening for protein Diabetes: Urine Protein Screening [facility] Start: 08-30-2024 Screening for malign ant neoplasm of cervix [facility] Start: 07-26-2024 Urine screening for protein Diabetes: Urine Protein Screening [facility] Start: 03-26-2024 End: 03-26-2024 Patient encounter procedure 03/26/2024 2:00 PM EST Office Visit [facility] [address] [place] [address] Sonam Drake, RONALDO [address] [place] [phone] [facility] Start: 03-24-2024 End: 03-24-2024 Patient encounter procedure 03/24/2024 4:00 PM EST Office Visit [facility] [address] [place] [address], [place] [address] Za Wilkerson NP [address] [place], [place] [facility] Start: 03-20-2024 Screening for malign ant neoplasm of breast Mammogram [facility] Start: 02-27-2024 End: 02-27-2024 Patient encounter procedure 02/27/2024 11:35 AM EST Office Visit [facility] [address] [place] [address] Alicia Garcia MD [address] [place] [address] [facility] Start: 02-25-2024 End: 02-25-2024 Patient encounter procedure 02/25/2024 3:30 PM EST Office Visit [facility] [address] [place] [phone] Sonam Drake, RONALDO [address] [place] [address] [facility] Start: 02-12-2024 Glaucoma screening Diabetes: R etinopathy Screening [facility] Start: 01-25-2024 Hemoglobin A1c measurement Diabetes: Hemoglobin A1C [facility] Start: 12-31-2023 End: 12-30-2024 Polysomnography [facility] Routine JANETT (obstructive sleep apnea) Expected: 12/31/2023 (Approximate), Expires: 12/30/2024 [facility] Work Phone: Comment on above: Expected: 12/31/2023 (Approximate), Expires: 12/30/2024 Start: 12-31-2023 End: 12-31-2023 Patient encounter procedure 12/31/2023 10:00 AM EST Office Visit [facility] [address] [place] [address] Sivan Villegas DO [address] [place] [address] [facility] [address] Start: 12-30-2023 End: 12-29-2024 CBC W Auto Differential panel - Blood CBC and differential Lab Routine Type 2 diabetes mellitus with diabetic microalbuminuria, without long-term current use of insulin ([facility]) Essential hypertension Expected: 12/30/2023 (Approximate), Expires: 12/29/2024 [facility] Comment on above: Expected: 12/30/2023 (Approximate), Expires: 12/29/2024 Start: 12-30-2023 End: 12-29-2024 Comprehensive metabolic 2000 panel - Serum or Plasma Comprehensive metabolic panel Lab Routine Type 2 diabetes mellitus with diabetic microalbuminuria, without long-term current use of insulin ([facility]/HCC) Essential hypertension Expected: 12/30/2023 (Approximate), Expires: 12/29/2024 [facility] Comment on above: Expected: 12/30/2023 (Approximate), Expires: 12/29/2024 Start: 12-30-2023 End: 12-29-2024 Hemoglobin A1c/Hemoglobin.total in Blood Hemoglobin A1c Lab Routine Type 2 diabetes mellitus with diabetic microalbuminuria, without long-term current use of insulin (CMS/HCC) Expected: 12/30/2023 (Approximate), Expires: 12/29/2024 [facility] Comment on above: Expected: 12/30/2023 (Approximate), Expires: 12/29/2024 Start: 12-30-2023 End: 12-30-2023 Patient encounter procedure 12/30/2023 10:30 AM EST Office Visit [facility] [address] [place] [phone] Sonam Drake NP [address] [place] [phone] [facility] Start: 10-13-2023 Influenza vaccination Influenza Vacc ine (#1) [facility] Start: 08-11-2023 Influenza vaccination Influenza Vacc ine (#1) [facility] Comment on above: Postponed from 10/12 (Patient Refused) Start: 05-02-2023 End: 05-02-2023 Patient encounter procedure 05/02/2023 2:00 PM EDT Office Visit [facility] [address] [place] [phone] Shaikh Connelly MD [address] [place] [phone] [facility] Start: 02-17-2023 Hemoglobin A1c measurement Diabetes: Hemoglobin A1C [facility] Start: 09-04-2022 End: 09-04-2022 Patient encounter procedure 09/04/2022 Office Visit Obstetrics and Gynecology Radha Barclay, ANGEL - CRISTAL [address] [facility] [address] [place] [address] [facility] Start: 10-12-2021 Influenza vaccination Flu vaccine (# 1) [facility] Start: 10-21-2013 Screening for malign ant neoplasm of breast Breast cancer screen [facility] Start: 10-21-2013 Shingles vaccine (1 of 2) [place] gles vaccine (1 of 2) [facility] Start: 10-21-2008 Screening for malign ant neoplasm of colon [facility] Start: 2003 Lipid panel Lipids [place] [facility] Start: 10-21-1998 Diabetes screen Diabetes screen [facility] Start: 10-21-1993 Screening for malign ant neoplasm of cervix [facility] Start: 10-21-1982 DTaP/Tdap/Td vaccine (1 - Tdap) DTaP/Tdap/Td vaccine (1 - Tdap) [facility] Start: 10-21-1982 Urine screening for protein Diabetes: Urine Protein Screening [facility] Start: 10-21-1981 Hepatitis C screening Hepatitis C sc reen [facility] Start: 10-21-1978 HIV screening HIV screen [facility] Start: 1975 Depression Screen Depression Screen [facility] Start: 04-20-1964 COVID-19 Vaccine (#1) COVID-19 Vacci ne (#1) [facility] Start: 1963 Screening for malign ant neoplasm of colon [facility] End: 08-30-2021 Cytopathology procedure, preparation of smear, genital source [facility] Lab Routine Routine cervical smear 1 Occurrences starting 08/30/2021 until 08/30/2021 [facility] Work Phone: Comment on above: 1 Occurrences starti ng 08/30/2021 until 08/30/2021 Microalbumin/Creatin ine panel in random Urine Microalbumin / creatinine urine ratio Lab Routine Type 2 diabetes mellitus with diabetic microalbuminuria, without long-term current use of insulin ([facility]) Essential hypertension Ordered: 12/30/2023 [facility] Work Phone: Comment on above: Ordered: 12/30/2023 Immunizations Immunization Date Immunization Notes Care Provider Tima garcia 01-14-2017 influenza, injectabl e, quadrivalent, preservative [facility] 01-14-2017 influenza virus vacc ine, unspecified formulation Jolly Castaneda MA [facility] Healthcare Payers Date Payer Category Payer Private Health Insurance [employer] [facility] [id number] 2022 Unknown [employer] [id number] 2022-Present [phone] [address] [address] [place] [address] [id number]. 2.7.3.243020.315 2012 Medicare [id number]. 1.13.693. 2.7.3.861669.315 1963 Unknown [id number] 2.16.840.1.813567.3.579. 2.173 1963 Unknown [id number] 2.16.840.1.888494.3.579. 2.593 1963 Unknown [id number] 2.16.840.1.253375.3.579. 2.593 1963 Unknown [id number] 2.16.840.1.183507.3.579. 2.593 1963 Unknown [id number] 2.16.840.1.608377.3.579. 2.593 1963 Unknown [id number] 2.16.840.1.150404.3.579. 2.593 1963 Unknown [id number] 2.16.840.1.630993.3.579. 2.593 1963 Unknown [id number] 2.16.840.1.747106.3.579. 2.593 1963 Unknown [id number] 2.16.840.1.155021.3.579. 2.593 1963 Unknown [id number] 2.16.840.1.793448.3.579. 2.593 1963 Unknown [id number] 2.16.840.1.326344.3.579. 2.593 1963 Unknown [id number] 2.16.840.1.151376.3.579. 2.593 1963 Unknown [id number] 2.16.840.1.571259.3.579. 2.59 1963 Unknown [id number] 2.16.840.1.145510.3.579. 2.59 1963 Unknown [id number] 2.16.840.1.868971.3.579. 2.59 1963 Unknown [id number] 2.16.840.1.136242.3.579. 2.593 1963 Unknown [id number] 2.16.840.1.031617.3.579. 2.59 1963 Unknown [id number] 2.16.840.1.524970.3.579. 2.1258 1963 Unknown [id number] 2.16.840.1.351785.3.579. 2.1258 1963 Unknown [id number] 2.16.840.1.471265.3.579. 2.1258 1963 Unknown [id number] 2.16.840.1.373476.3.579. 2.1258 1963 Unknown [id number] 2.16.840.1.166263.3.579. 2.1258 1963 Unknown [id number] 2.16.840.1.058883.3.579. 2.1258 1963 Unknown [id number] 2.16.840.1.453293.3.579. 2.1258 1963 Unknown [id number] 2.16.840.1.307216.3.579. 2.125 1963 Unknown [id number] 2.16.840.1.137473.3.579. 2.1259 1959 Medicare [id number] 1.2.840.974727.1.13.239. 2.7.3.775052.315 1959 Unknown [id number] 1.2.840.847785.1.13.239. 2.7.3.338224.315 1959 Unknown [id number] 2.16.840.1.072665.19 Medicare Medicare [id number] Self-pay Self Pay [id number] Social History Date Type Detail Facility Start: 08-30-2021 End: 12-31-2023 Tobacco smoking status MAIS Smokes tobacco daily [facility] Phone: History of tobacco use Cigarette Smoker [facility] [employer] Phone: Start: 08-30-2021 End: 12-31-2023 Tobacco use and exposure Smokeless tobacco non-user [facility] Phone: Start: 08-30-2021 Alcohol intake Current drinke r of alcohol (finding) [facility] Phone: Start: 08-30-2021 History SDOH Alcohol Comment occasional [facility] Phone: Start: 1965 Sex Assigned At Not on file [facility] Phone: Start: 08-20-2021 End: 08-30-2021 Exposure to SARS-CoV-2 (event) Not sure [employer] Start: 02-25-2023 End: 10-02-2023 Sex Assigned At [facility] Start: 01-29-2023 End: 08-05-2023 Tobacco smoking status MAIS Ex-smoker [facility] History of tobacco use Current smoker [facility] Start: 01-29-2023 End: 10-02-2023 Cigarettes smoked current (pack per day) - Reported 0.5 [facility] Start: 02-25-2023 End: 12-31-2023 Alcohol intake Lifetime non-drinker (finding) [facility] Start: 1965 Sex Assigned At Female F [facility] History of tobacco use Passive smoker [facility] How often do you nee d to have someone help you when you read instructions, pamphlets, or other written material from your doctor or pharmacy [SILS] Patient declines to respond [facility] Are you now , , , , never or living with a partner? [facility] How often to you hav e a drink containing alcohol? Monthly or less [facility] How many standard drinks containing alcohol [...] - these days [OSQ] To some extent [facility] Medical Equipment Procedure Code Equipment Code Equipment Origin al Text Equipment Identifier Dates USE TO TEST BLOO D SUGAR TWICE DAILY [id number] Start: 06-08-2021 Clinical Notes 06-20-2021 to 01-14-2024 Telephone Encounter - Jolly Castaneda MA - 01/14/2024 8:34 AM ESTTelephone Encounter - Jolly Castaneda MA - 01/14/2024 8:34 AM ESTSivan Villegas DO - 12/31/2023 10:00 AM ESTPatient Instructions Note Date & Type Note Facility 01-14-2024 Telephone encount er Note GIOVANNA:12/30/2023 NOV:03/26/2023 [facility] 01-14-2024 Miscellaneous Notes Formattin g of this note might be different from the original. GIOVANNA:12/30/2023 NOV:03/26/2023 documented in this encounter [facility] 12-31-2023 History of Presen t illness Narrative Images from the original note were not included. No chief complaint on file. Subjective SLEEP CONSULT REFERRAL: Snoring, concern for JANETT, needing sleep study - labs @ [facility]; referral received from Sonam Drake CNP. 58 year old female being [...] was counseled on the risks of stroke, [place], and sudden with JANETT, along with the [...] clinic: 2 months documented in this encounter [facility] 12-30-2023 History of Presen t illness Narrative [...] R ALBUMIN GLOBULIN RATIO 0.[address] [facility] DMII: Metformin Bid and Ozempic Most recent [...] microalbuminuria, without long-term current use of insulin ([facility]) - Primary Currently taking Metformin Bid and [...] First appointment tomorrow. documented in this encounter [facility] 12-30-2023 Instructions Sonam Drake NP - 12/30/2023 10:30 AM EST FASTING labs ordered. Nothing to eat or drink for 12 hours prior to blood draw. Water and black coffee ok. Call if you need anything! documented in this encounter [facility] 12-17-2023 Telephone encount er Note GIOVANNA:10/03/2023 NOV:12/30/2023 [facility] 12-17-2023 Miscellaneous Notes Formattin g of this note might be different from the original. GIOVANNA:10/03/2023 NOV:12/30/2023 documented in this encounter [facility] 03-19-2023 Evaluation note Encounter Date Diagnosis Assessment [...] Mar, Left hand pain (ICD-10 - M79.642) [facility] 12-13-2023 Evaluation note* Encounter Date Diagnosis [...] noted. Patient will f/u in 4 weeks. [facility] 12-08-2023 Evaluation note* Encounter Date Diagnosis [...] x-ray that was performed at [facility] which revealed degenerative changes in the hand as well as a remote avulsion fracture of the thumb. Patient states her family doctor is treating her for gout in her hand. Jan, History of gout (ICD-10 - Z87.39) Jan, Other Gout material w as printed [facility] 08-09-2023 Evaluation note* Encounter Date Diagnosis Assessment Notes Treatment Notes Treatment Clinical Notes Sep, Right wrist pain (ICD-10 - M25.531) [facility] Other 04-27-2023 NoteCONSULTATION CONSULTATION DATE: 06/07/2022 TO: [...] our patients to inform us about any [id number]-euo-dunfxwm medications or herbal remedies/nutritional supplements/alternative remedies. 2. [...] with their primary care provider.[facility] [id number] Evaluation note * Encounter Date Diagnosis Assessment [...] understanding and is agreeable to treatment plan. [facility] Other 01-26-2023 NoteCONSULTATION PROCEDURE DATE: 03/08/2022 PREOPERATIVE [...] followed up in the clinic.[facility] [id number] NotePROCEDURE: XR KNEE LT 4V or > [...] authenticated by: PATTIE SALTER Date: 2022-02-16 11:29[facility] [id number] NoteCONSULTATION CONSULTATION DATE: 02/09/2022 HISTORY OF PRESENT [...] Patient agrees with this plan.[facility] [id number] NotePROCEDURE: XR WRIST RT MIN 3 V COMPARISON: None. HISTORY: Injury of right wrist FINDINGS: BONES:No acute fracture or dislocation. Corticated bone fragment identified along the first carpometacarpal joint [degenerative in nature SOFT TISSUES:Moderate diffuse soft tissue swelling EFFUSION:None visible. OTHER: Negative. IMPRESSION: Soft tissue swelling, no acute fracture Electronically authenticated by: RYAN GOLDMAN Date: 2021-11-16 18:59[facility] [id number] NoteCONSULTATION CONSULTATION DATE: 11/01/2021 HISTORY OF PRESENT [...] Patient agrees with this plan.[facility] [id number] NoteCONSULTATION PROCEDURE DATE: 11/01/2021 PRE AND POSTOPERATIVE [...] followed up in the clinic.[facility] [id number] NoteCONSULTATION PROCEDURE DATE: 08/09/2021 PREOPERATIVE DIAGNOSIS: Bilateral [...] will be followed up in the clinic. [facility] Signed and Approved by: CRYS PIERCE . 08/10/2021 13:37:00[facility] [id number] NoteCONSULTATION CONSULTATION DATE: 07/19/2021 HISTORY OF PRESENT [...] injections. Patient acknowledges and all questions answered. [facility] Signed and Approved by: CRYS PIERCE . 07/20/2021 10:33:00[facility]05-25-2022 NotePROCEDURE: XR FOOT RT MIN 3 VIEWS [...] Electronically authenticated by: PATTIE SALTER Date: 2021-07-05 11:11[facility]05-10-2022 NoteCONSULTATION CONSULTATION DATE: 06/20/2021 CHIEF COMPLAINT: Low [...] like to proceed. CC: Jonathan Edwards M.D. [facility] Signed and Approved by: DR RICARDO HOLM . 06/27/2021 10:40:00[facility]* Diagnosis Routine cervical smear Screening for malignant neoplasm of the cervix documented in this encounter [facility] [employer] Work Phone: evaluation note* Diagnosis Diabetic polyneuropathy associated with type 2 diabetes mellitus (CMS/HCC)- Primary documented in this encounter [facility] HealthcareEvaluation noteNo assessment information availableGlenbeigh [facility] Work Phone: Evaluation note* Diagnosis Encounter [...] diabetes mellitus (CMS/HCC) documented in this encounter [facility] Healthcare[facility] note* Diagnosis Encounter for [...] chronicity, unspecified site documented in this encounter [facility] HealthcareEvaluation note* Diagnosis Encounter for [...] Tobacco use disorder documented in this encounter [facility] Healthcare[facility]* Diagnosis Encounter for screening mammogram [...] complication, without long-term current use of insulin ([facility]) Diabetic polyneuropathy associated with type 2 diabetes mellitus ([facility]) Mixed urge and stress incontinence Mixed incontinence urge and stress (male)(female) Snoring Other dyspnea and respiratory abnormality Encounter for long-term (current) use of high-risk medication Encounter for long-term (current) use of other medications Type 2 diabetes mellitus with diabetic microalbuminuria, without long-term current use of insulin ([facility])- Primary Essential hypertension Unspecified essential hypertension Other hyperlipidemia (CMS/HCC) Snoring Other dyspnea and respiratory abnormality Mixed urge and stress incontinence Mixed incontinence urge and stress (male)(female) documented in this encounter [facility] note* Diagnosis Encounter for screening mammogram for breast cancer- Primary Encounter for screening for malignant neoplasm of colon Type 2 diabetes mellitus without complication, without long-term current use of insulin ([facility]/HCC) Upper respiratory tract infection, unspecified type URTI (acute upper respiratory infection) Acute upper respiratory infections of unspecified site Migraine with aura and without status migrainosus, not intractable (CMS/HCC)- Primary Type 2 diabetes mellitus without complication, without long-term current use of insulin ([facility]/HCC) Morbid (severe) obesity due to excess calories (E66.01) Body mass index [BMI] 40.0-44.9, adult (Z68.41) Essential hypertension Unspecified essential hypertension Essential hypertension- Primary Unspecified essential hypertension Type 2 diabetes mellitus without complication, without long-term current use of insulin ([facility]) Back spasm Other symptoms referable to back Closed fracture of proximal end of left fibula with routine healing, unspecified fracture morphology, subsequent encounter Closed nondisplaced fracture of second metatarsal bone of left foot with routine healing, subsequent encounter Other hyperlipidemia ([facility]) Hyperuricemia Other abnormal blood chemistry Osteoporosis, unspecified osteoporosis type, unspecified pathological fracture presence ([facility]) Diabetic polyneuropathy associated with type 2 diabetes mellitus ([facility]) Gastroesophageal reflux disease without esophagitis Esophageal reflux Migraine with aura and without status migrainosus, not intractable ([facility]) Hospital discharge follow-up Other follow-up examination Type 2 diabetes mellitus with diabetic microalbuminuria, without long-term current use of insulin ([facility])- Primary Other hyperlipidemia ([facility]) Essential hypertension Unspecified essential hypertension Bilateral lower extremity edema Lumbar back pain- Primary Lumbago Hospital discharge follow-up Other follow-up examination Essential hypertension- Primary Unspecified essential hypertension Type 2 diabetes mellitus with diabetic microalbuminuria, without long-term current use of insulin ([facility]) Morbid (severe) obesity due to excess calories (E66.01) Other hyperlipidemia ([facility]) Lumbar back pain Lumbago Type 2 diabetes mellitus without complication, without long-term current use of insulin ([facility]) Diabetic polyneuropathy associated with type 2 diabetes mellitus ([facility]) Mixed urge and stress incontinence Mixed incontinence urge and stress (male)(female) Snoring Other dyspnea and respiratory abnormality Encounter for long-term (current) use of high-risk medication Encounter for long-term (current) use of other medications Type 2 diabetes mellitus with diabetic microalbuminuria, without long-term current use of insulin ([facility])- Primary Essential hypertension Unspecified essential hypertension Other hyperlipidemia ([facility]) Snoring Other dyspnea and respiratory abnormality Mixed urge and stress incontinence Mixed incontinence urge and stress (male)(female) Lumbar back pain Lumbago [facility] - Reported* Type Description Date Medical History GERD (gastroesophageal reflux di sease) Medical History Migraine headache Medical History Arthritis Medical History Edema of both legs Medical History Diabetes mellitus, type 2 Medical History Chronic back pain Surgical History ablasion Surgical History back surgery Surgical History hysterectomy Surgical History tubal ligation Hospitalization History see above [facility] Other Summary Purpose Family History Relationship Condition Age at Onset Recorded Date/T samreen Not Specified Heart disease Unknown Diabetes mellitus Unknown Advance Directives Advance Directive Response Recorded Date/ Time Advance Directives No January 12, 2017 9:25pm Chief Complaint and Reason for Visit Chief Complaint 4-6 WEEK RECHECK Additional Source Comments Care Teams (unrecognized sec tion and content) 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 Relationship 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 Start Date End Date Sr Jonathan Edwards P, DO [address] [place], [place] [id number] PCP - General Family Medicine 08/30/21 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 Relationship Specialty Start Date End Date Shaikh [...] April 30, 2023 End: April 30, 2023 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 Relationship Specialty Start Date End Date Jose Chandler MD [address] [place] [address] PCP - General Family Medicine 12/12/23 Sonam Drake NP [address] [place] [address] Nurse Practitioner Family Medicine 09/24/23 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 Relationship Specialty Start Date End Date Jose Chandler MD [address] [place] [address] PCP - General Family Medicine 12/12/23 Sonam Drake NP [address] [place] [address] Nurse Practitioner Family Medicine 09/24/23 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 Relationship Specialty Start Date End Date Jose Chandler MD [address] [place] [address] PCP - General Family Medicine 12/12/23 Sonam Drake NP [address] [place] [address] Nurse Practitioner Family Medicine 09/24/23 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 Relationship Specialty Start Date End Date Jose Chandler MD [address] [place] [address] PCP - General Family Medicine 12/12/23 Sonam Drake NP [address] [place] [address] Nurse Practitioner Family Medicine 09/24/23 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 Relationship Specialty Start Date End Date Jose Chandler MD [address] [place] [phone] PCP - General Family Medicine 12/12/23 Sonam Drake NP [address] [place] [address] Nurse Practitioner Family Medicine 09/24/23 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 Relationship Specialty Start Date End Date Jose Chandler MD [address] [place] [address] PCP - General Family Medicine 12/12/23 Sonam Drake NP [address] [place], [place] [address] [phone] Nurse Practitioner Family Medicine 09/24/23 INFORMATION SOURCE (unrecogn ized section and content) DATE CREATED AUTHOR 09/10/2021 [facility] DATE CREATED AUTHOR AUTHOR'S ORGANIZ ATION 06/08/2022 [facility] DATE CREATED AUTHOR AUTHOR'S ORGANIZ ATION 10/06/2023 [facility] DATE CREATED AUTHOR AUTHOR'S ORGANIZ ATION 01/01/2024 [facility] EPIC REASON FOR VISIT (unrecogniz ed section and content) Reason Onset Date Comments Med Refill 12/17/2023 Reason Comments Med Refill Reason Comments Sleep Apnea Reason Comments Diabetes Reason Onset Date Comments Med Refill 01/14/2024 Goals (unrecognized section and content) Goals may [...] BE BASED ON THE PRIMARY CLINICAL RECORDS. [facility] [employer] provides no warranty or guarantee of the accuracy or completeness of information in this document.
== END 2024-01-21 19:52 | disposition home or self-care (01) ==
LOC: SLEEP 19:51
PROVIDERS: Visit Provider Psychiatry & Neurology Neurology
DX: G47.33 Obstructive sleep apnea (adult) (pediatric) (principal)
CPT/HCPCS: 95810

== ENCOUNTER 2024-01-28 08:27 | Day surgery (SDC) | payer OTHER, MEDICARE, SELFPAY ==
--- OUTSIDE RECORDS SUMMARY | 2024-01-28 08:46 | XMS_ITS | CCD ---
Author Organization [facility] Care Team Providers Care Environmental Intern Name Role Phone House DO, Sr Jonathan [...] Admitting Unavailable HOUSE, DR BASURTO Attending Unavailable [place], DR BASURTO Primary Care Unavailable MARBLE, DR RYAN Guzman Consulting Unavailable HOUSE, DR [...] Primary Care Provider Vidal HIGGINS, Sonam Unavailable [phone] Jose Chandler MD Primary Care Provider ALICIA [...] microalbuminuria, without long-term current use of insulin (CMS/[facility]) Take 1 tablet (500 mg) [...] day Active take 1 capsule by mo [facility] twice daily pregabalin (LYRICA) 50 [...] 12, 2017 1:00am January 15, 2017 2:23pm Ccoxtdxznydk-Kh-Lw on-Minerals (Multiple Vitamin, Womens) Tablet (1 source) Start: 01-12-2017 End: 01-15-2017 Qyhtrsnesocy-Eg-Ot on-Minerals (Multiple Vitamin, Womens) Tablet Discontinued PO [...] complication, without long-term current use of insulin (CMS/[facility]) Inject 1 mg under the [...] WITH AUTO DIFFon BASOPHILS ABSOLUTE AUTO 0.1 [facility] Basophils/100 WBC (Bld) 0.4 % 0.2 - 2.0 % [facility] Eosinophils/100 WBC (Bld) 3.2 % 0.9 - 7.0 % [facility] Erythrocyte distribution width (RBC) [Ratio] 15.6 % High 11.0 - 15.0 % [facility] Hematocrit (Bld) [Volume fraction] 42.4 % 36.0 - 48.0 % [facility] [Mass/Vol] 13.9 g/dL 12.0 - 16.0 g/dL [facility] IMMATURE GRANULOCYTES ABS AUTO 0.09 High [facility] Immature granulocytes/100 WBC (Bld) 0.7 % High 0.0 - 0.5 % [facility] Interpretation and review of laboratory results Abnormal [facility] LYMPHOCYTES ABSOLUTE AUTO 3.5 [facility] Lymphocytes/100 WBC (Bld) 27.7 % 20.5 - 60.0 % [facility] MCH (RBC) [Entitic mass] 31.4 pg 26.7 - 34.0 pg [facility] MCHC (RBC) [Mass/Vol] 32.8 g/dL 29.9 - 35.2 g/dL [facility] MCV (RBC) [Entitic vol] 95.7 fL 81.0 - 99.0 fL [facility] MONOCYTES ABSOLUTE AUTO 0.9 High [facility] Monocytes/100 WBC (Bld) 7.4 % 1.7 - 12.0 % [facility] NEUTROPHILS ABSOLUTE AUTO 7.7 High [facility] Neutrophils/100 WBC (Bld) 60.6 % 43.0 - 75.0 % [facility] Platelet mean volume (Bld) [Entitic vol] [...] PATTIE SALTER Date: 2022-06-07 11:15 Normal [facility] CBC AUTO DIFFon 04-12-2022 BASO # 0.1 103/ul Normal 0.0-0.1 [facility] Comment on above: Performed By: #### C BC ####[facility] [address] [place] [address]Dr. Ricky Valenzuela Basophils/100 WBC (Bld) 0.5 % Normal 0.2-2.0 [facility] Comment on above: Performed By: #### C BC ####[facility] [address] [place], [place] [address]Mg. Ricky Valenzuela EO # 0.3 103/ul Normal 0.0-0.7 [facility] Comment on above: Performed By: #### C BC ####[facility] [address] [place] [id number]. Ricky Valenzuela Eosinophils/100 WBC (Bld) 3.0 % Normal 0.9-7.0 [facility] Comment on above: Performed By: #### C BC ####[facility] [address] [place] [address]Dr. Ricky Valenzuela Erythrocyte distribution width (RBC) [Ratio] 14.8 % Normal 11.0-15.0 [facility] Comment on above: Performed By: #### C BC ####[facility] [address] [place] [address]Dr. Ricky Valenzuela Hematocrit (Bld) [Volume fraction] 40.6 % Normal 36.0-48.0 [facility] Comment on above: Performed By: #### C BC ####[facility] [address] [place], [place] [address]Dr. Ricky Valenzuela Hemoglobin (Bld) [Mass/Vol] 13.5 g/dL Normal 12.0-16.0 [facility] Comment on above: Performed By: #### C BC ####[facility] [address] [place], [place] [address]Dr. Ricky Valenzuela IG # 0.16 10e3/ul Critically high 0.00-0.03 [facility] Comment on above: Performed By: #### C BC ####[facility] [address] [place], [place] [address]Dr. Ricky Valenzuela IG % 1.4 % Critically high 0.0-0.5 [facility] Comment on above: Performed By: #### C BC ####[facility] [address] [place], [place] [address]Dr. Ricky Valenzuela LYMPH # 3.4 103/ul Normal 1.2-3.8 [facility] Comment on above: Performed By: #### C BC ####[facility] [address] [place], [place] [address]Dr. Ricky Valenzuela Lymphocytes/100 WBC (Bld) 30.4 % Normal 20.5-60.0 [facility] Comment on above: Performed By: #### C BC ####[facility] [address] [place], [place] [address]Dr. Ricky Valenzuela MANUAL DIFF REQ NO Normal [facility] [place] Comment on above: Performed By: #### C BC ####[facility] [address] [place] [id number]. Ricky Nicolas MCH (RBC) [Entitic mass] 31.8 pg Normal 26.7-34.0 [facility] Comment on above: Performed By: #### C BC ####[facility] [address] [place] [id number]. Lesleysharron Nicolas MCHC (RBC) [Mass/Vol] 33.3 g/dL Normal 29.9-35.2 [facility] Comment on above: Performed By: #### C BC ####[facility] [address] [place] [address]Dr. Ricky Valenzuela MCV (RBC) [Entitic vol] 95.5 fL Normal 81.0-99.0 [facility] Comment on above: Performed By: #### C BC ####[facility] [address] [place], [place] [address]DrPasquale Valenzuela MONO # 0.9 103/ul Critically high 0.3-0.8 [facility] Comment on above: Performed By: #### C BC ####[facility] [address] [place], [place] [address]Dr. Ricky Valenzuela Monocytes/100 WBC (Bld) 7.7 % Normal 1.7-12.0 [facility] Comment on above: Performed By: #### C BC ####[facility] [address] [place], [place] [address]Dr. Ricky Valenzuela NEUT # 6.3 103/ul Normal 1.4-6.5 [facility] Comment on above: Performed By: #### C BC ####[facility] [address] [place], [place] [id number] Valenzuela Neutrophils/100 WBC (Bld) 57.0 % Normal 43.0-75.0 [facility] Comment on above: Performed By: #### C BC ####[facility] [address] [place], [place] [id number] Valenzuela Platelet mean volume (Bld) [Entitic vol] 9.8 fL Normal 9.5-13.5 [facility] Comment on above: Performed By: #### C BC ####[facility] [address] [place] [address]DrPasquale Valenzuela PLT 246 103/ul Normal 150-450 [facility] Comment on above: Performed By: #### C BC ####[facility] [address] [place] [id number] Valenzuela RBC 4.25 106/ul Normal 4.20-5.40 [facility] Comment on above: Performed By: #### C BC ####[facility] [address] [place] [id number] Valenzuela WBC 11.1 103/ul Critically high 4.0-11.0 [facility] Comment on above: Performed By: #### C BC ####[facility] [address] [place] [address]Dr. Ricky Valenzuela GLYCOHEMOGLOBIN A1Con 2022 ADA RECOMMENDATION SEE BELOW Normal [facility] Comment on above: Result Comment: ADA RECOMMENDED LIMIT 4.0 - 6.0 ADA THERAPEUTIC TARGET < 7.0 ACTION SUGGESTED > 7.0 Performed By: #### A 1C ####[facility] [address] [place] [address]Dr. Ricky Valenzuela Glucose [Mass/Vol] 160 mg/dL Normal [facility] Comment on above: Performed By: #### A 1C ####[facility] [address] [place] [address]Dr. Ricky Valenzuela HbA1c (Bld) [Mass fraction] 7.2 % Critically high 4.5-6.2 [facility] Comment on above: Performed By: #### A 1C ####[facility] [address] [place] [address]Dr. Ricky Valenzuela MICROALBUMIN, RAND URon - mALB <1.3 Normal <=30.0 [facility] Comment on above: Performed By: #### M ALBR #### [facility] [id number] Ricky Valenzuela PROF 14(COMP METB)on 023 Albumin [Mass/Vol] 3.3 g/dL Critically low 3.4-5.0 [facility] Comment on above: Performed By: #### C MP #### [facility] [address] [place] [address] Dr. Ricky Valenzuela Albumin/Globulin [Mass ratio] 0.9 {ratio} Normal [facility] Comment on above: Performed By: #### C MP #### [facility] [address] [place] [address] Dr. Ricky Valenzuela ALP [Catalytic activity/Vol] 90 U/L Normal 46-116 [facility] Comment on above: Performed By: #### C MP #### [facility] [address] [place] [address] Dr. Ricky Valenzuela ALT [Catalytic activity/Vol] 42 U/L Normal 14-59 [facility] Comment on above: Performed By: #### C MP #### [facility] [address] [place] [address] Dr. Ricky Valenzuela Anion gap [Moles/Vol] 10.1 mmol/L Normal [facility] Comment on above: Performed By: #### C MP #### [facility] [address] [place] [address] Dr. Ricky Valenzuela AST [Catalytic activity/Vol] 21 U/L Normal 15-37 [facility] Comment on above: Performed By: #### C MP #### [facility] [address] [place] [address] Dr. Ricky Valenzuela Bilirubin [Mass/Vol] 0.3 mg/dL Normal 0.2-1.0 [facility] Comment on above: Performed By: #### C MP #### [facility] [address] [place] [address] Dr. Ricky Valenzuela Calcium [Mass/Vol] 9.8 mg/dL Normal 8.5-10.1 [facility] Comment on above: Performed By: #### C MP #### [facility] [address] [place] [address] Dr. Ricky Valenzuela Chloride [Moles/Vol] 99 mmol/L Normal 98-107 [facility] Comment on above: Performed By: #### C MP #### [facility] [address] [place] [address] [address] Ricky Valenzuela CO2 [Moles/Vol] 33.7 mmol/L Critically high 21.0-32.0 [facility] Comment on above: Performed By: #### C MP #### [facility] [address] [address] [address] Ricky Valenzuela Creatinine [Mass/Vol] 0.94 mg/dL Normal 0.55-1.02 [facility] Comment on above: Performed By: #### C MP #### [facility] [address] [place] [address] Dr. Ricky Valenzuela EGFR-AF CO[place] R[place] >60 Normal >=60 [facility] Comment on above: Performed By: #### C MP #### [facility] [address] [address] [address] Ricky Valenzuela EGFR-NON AF [place] >60 Normal >=60 [facility] Comment on above: Performed By: #### C MP #### [facility] [address] [address] [address] Ricky Valenzuela Globulin (S) [Mass/Vol] 3.8 g/dL Normal [facility] Comment on above: Performed By: #### C MP #### [facility] [address] [address] [address] Ricky Valenzuela Glucose [Mass/Vol] 168 mg/dL Critically high 74-106 [facility] Comment on above: Performed By: #### C MP #### [facility] [address] [address] [address] Ricky Valenzuela Potassium [Moles/Vol] 4.8 mmol/L Normal 3.5-5.1 [facility] Comment on above: Performed By: #### C MP #### [facility] [address] [address] [address] Ricky Valenzuela Protein [Mass/Vol] 7.1 g/dL Normal 6.4-8.2 [facility] Comment on above: Performed By: #### C MP #### [facility] [address] [address] [address] Ricky Valenzuela Sodium [Moles/Vol] 138 mmol/L Normal 136-145 [facility] Comment on above: Performed By: #### C MP #### [facility] [address] [address] [address] Ricky Valenzuela Urea nitrogen [Mass/Vol] 22.0 mg/dL Critically high 7.0-18.0 [facility] Comment on above: Performed By: #### C MP #### [facility] [address] [address] [address] Ricky Valenzuela Urea nitrogen/Creatinine [Mass ratio] 23.4 mg/mg Normal [facility] Comment on above: Performed By: #### C MP #### [facility] [address] [address] [address] Ricky Valenzuela Cytologyon 08-30-2021 Cytology (NOTE) INTERPRETATION Vaginal material, (ThinPrep vial, Imaging-assisted review): Specimen Adequacy: Satisfactory for evaluation. Descriptive Diagnosis: Negative for intraepithelial lesion or malignancy. Stab Setter And Driller: CLARK Delacruz(ASCP) Electronically Signed Out ss/09/07/2021 Source: A: Vaginal material, (ThinPrep vial, Imaging-assisted review) Clinical History Hysterectomy Surgery: Salpingostomy; Ovary removal Z12.4 Encounter for screening for malignant neoplasm of cervix GYNECOLOGIC CYTOLOGY REPORT Patient Name: KARINA DE OLIVEIRA [facility] Rec: [id number] Path Number: [id number] [facility] ANATOMIC PATHOLOGY [facility] [place], [place] [address] Normal [facility] Comment on above: Performed By: #### P PPVP #### [employer] [address] [place] [id number] Sales Representative Graphic Art: Luca Cummins MD CBC AUTO DIFFon 08-09-2021 BASO # 0.1 103/ul Normal 0.0-0.1 [facility] Comment on above: Performed By: #### C BC #### [facility] [address] [address] [address] Ricky Valenzuela Basophils/100 WBC (Bld) 0.8 % Normal 0.2-2.0 [facility] Comment on above: Performed By: #### C BC #### [facility] [address] [address] [address] Ricky Valenzuela EO # 0.2 103/ul Normal 0.0-0.7 [facility] Comment on above: Performed By: #### C BC #### [facility] [address] [address] [address] Ricky Valenzuela Eosinophils/100 WBC (Bld) 2.1 % Normal 0.9-7.0 [facility] Comment on above: Performed By: #### C BC #### [facility] [address] [place] [address] Dr. Ricky Valenzuela Erythrocyte distribution width (RBC) [Ratio] 15.2 % Critically high 11.0-15.0 [facility] Comment on above: Performed By: #### C BC #### [facility] [address] [place] [address] Dr. Ricky Valenzuela Hematocrit (Bld) [Volume fraction] 41.5 % Normal 36.0-48.0 [facility] Comment on above: Performed By: #### C BC #### [facility] [address] [place] [address] Dr. Ricky Valenzuela Hemoglobin (Bld) [Mass/Vol] 13.5 g/dL Normal 12.0-16.0 [facility] Comment on above: Performed By: #### C BC #### [facility] [address] [address] [address] Ricky Valenzuela IG # 0.42 10e3/ul Critically high 0.00-0.03 [facility] Comment on above: Performed By: #### C BC #### [facility] [address] [address] [address] Ricky Valenzuela IG % 3.8 % Critically high 0.0-0.5 [facility] Comment on above: Performed By: #### C BC #### [facility] [address] [place] [address] Dr. Ricky Valenzuela LYMPH # 3.3 103/ul Normal 1.2-3.8 [facility] Comment on above: Performed By: #### C BC #### [facility] [address] [place] [address] Dr. Ricky Valenzuela Lymphocytes/100 WBC (Bld) 29.1 % Normal 20.5-60.0 [facility] Comment on above: Performed By: #### C BC #### [facility] [address] [place] [address] Dr. Ricky Valenzuela MANUAL DIFF REQ NO Normal [facility] Comment on above: Performed By: #### C BC #### [facility] [address] [place] [address] Dr. Ricky Valenzuela MCH (RBC) [Entitic mass] 32.4 pg Normal 26.7-34.0 [facility] Comment on above: Performed By: #### C BC #### [facility] [address] [place] [address] Dr. Ricky Valenzuela MCHC (RBC) [Mass/Vol] 32.5 g/dL Normal 29.9-35.2 [facility] Comment on above: Performed By: #### C BC #### [facility] [address] [place] [address] Dr. Ricky Valenzuela MCV (RBC) [Entitic vol] 99.5 fL Critically high 81.0-99.0 [facility] Comment on above: Performed By: #### C BC #### [facility] [address] [place] [address] Dr. Ricky Valenzuela MONO # 0.8 103/ul Normal 0.3-0.8 [facility] Comment on above: Performed By: #### C BC #### [facility] [address] [place] [address] Dr. Ricky Valenzuela Monocytes/100 WBC (Bld) 7.5 % Normal 1.7-12.0 [facility] Comment on above: Performed By: #### C BC #### [facility] [address] [address] [address] Ricky Valenzuela NEUT # 6.3 103/ul Normal 1.4-6.5 [facility] Comment on above: Performed By: #### C BC #### [facility] [address] [address] [address] Ricky Valenzuela Neutrophils/100 WBC (Bld) 56.7 % Normal 43.0-75.0 [facility] Comment on above: Performed By: #### C BC #### [facility] [address] [address] [address] Ricky Valenzuela Platelet mean volume (Bld) [Entitic vol] 9.8 fL Normal 9.5-13.5 [facility] Comment on above: Performed By: #### C BC #### [facility] [address] [address] [address] Ricky Valenzuela PLT 265 103/ul Normal 150-450 [facility] Comment on above: Performed By: #### C BC #### [facility] [address] [address] [address] Ricky Valenzuela RBC 4.17 106/ul Critically low 4.20-5.40 [facility] [place] Comment on above: Performed By: #### C BC #### [facility] [address] [address] [address] Ricky Valenzuela WBC 11.2 103/ul Critically high 4.0-11.0 [facility] Comment on above: Performed By: #### C BC #### [facility] [address] [address] [address] Ricky Valenzuela GLYCOHEMOGLOBIN A1Con 2021 ADA RECOMMENDATION SEE BELOW Normal [facility] Comment on above: Result Comment: ADA RECOMMENDED LIMIT 4.0 - 6.0 ADA THERAPEUTIC TARGET < 7.0 ACTION SUGGESTED > 7.0 Performed By: #### A 1C ####[facility] [address] [place] [id number]. Ricky Valenzuela Glucose [Mass/Vol] 183 mg/dL Normal [facility] Comment on above: Performed By: #### A 1C ####[facility] [address] [place] [address]Dr. Ricky Valenzuela HbA1c (Bld) [Mass fraction] 8.0 % Critically high 4.5-6.2 [facility] Comment on above: Performed By: #### A 1C ####[facility] [address] [place] [address]Dr. Ricky Valenzuela LIPID PROFILEon 08-09-2021 CHOL-HDL RATIO NORM SEE BELOW Normal [facility] Comment on above: Result Comment: 3.3 - 4.4 LOW RISK 4.4 - 7.1 AVERAGE RISK 7.1 - 11.0 MODERATE RISK >11.0 HIGH RISK Performed By: #### C MP, LIPID #### [facility] [address] [address] [address] Ricky Valenzuela Cholesterol [Mass/Vol] 239 mg/dL Critically high <=200 [facility] Comment on above: Performed By: #### C MP, LIPID #### [facility] [address] [address] [address] Ricky Valenzuela Cholesterol in HDL [Mass/Vol] 36 mg/dL Critically low 40-60 [facility] Comment on above: Performed By: #### C MP, LIPID #### [facility] [address] [address] [address] Ricky Valenzuela Cholesterol in LDL [Mass/Vol] 164.2 mg/dL Normal [facility] Comment on above: Performed By: #### C MP, LIPID #### [facility] [address] [address] [address] Ricky Valenzuela Cholesterol.total/Ch olesterol in HDL [Mass ratio] 6.6 {ratio} Normal [facility] Comment on above: Performed By: #### C MP, LIPID #### [facility] [address] [address] [address] Ricky Valenzuela HDL NORMAL > or = 60 mg/dl - LOW CARDIOVASCULAR RISK <40 mg/dl - HIGH CARDIOVASCULAR RISK Normal [facility] Comment on above: Performed By: #### C MP, LIPID #### [facility] [address] [address] [address] Ricky Valenzuela LDL CALC NORMAL SEE BELOW Normal [facility] Comment on above: Result Comment: <100 mg/dl OPTIMAL 100 - 129 mg/dl NEAR OR ABOVE OPTIMAL 130 - 159 mg/dl BORDERLINE HIGH 160 - 189 mg/dl HIGH >190 mg/dl VERY HIGH Performed By: #### C MP, LIPID #### [facility] [address] [address] [address] Ricky Valenzuela Triglyceride [Mass/Vol] 194 mg/dL Critically high <=150 [facility] Comment on above: Performed By: #### C MP, LIPID #### [facility] [address] [address] [address] Ricky Valenzuela VLDL CALC 38.8 mg/dL Normal [facility] Comment on above: Performed By: #### C MP, LIPID #### [facility] [address] [place] [address] Dr. Ricky Valenzuela MICROALBUMIN, RAND URon 07-13 mALB 13.1 mg/L Normal <=30.0 [facility] Comment on above: Performed By: #### M ALBR ####[facility] [address] [place] [address]Dr. Ricky Valenzuela PROF 14(COMP METB)on 022 Albumin [Mass/Vol] 3.3 g/dL Critically low 3.4-5.0 [facility] Comment on above: Performed By: #### C MP, LIPID #### [facility] [address] [address] [address] Ricky Valenzuela Albumin/Globulin [Mass ratio] 0.8 {ratio} Normal [facility] Comment on above: Performed By: #### C MP, LIPID #### [facility] [address] [address] [address] Ricky Valenzuela ALP [Catalytic activity/Vol] 93 U/L Normal 46-116 [facility] Comment on above: Performed By: #### C MP, LIPID #### [facility] [address] [address] [address] Ricky Valenzuela ALT [Catalytic activity/Vol] 37 U/L Normal 14-59 [facility] Comment on above: Performed By: #### C MP, LIPID #### [facility] [address] [address] [address] Ricky Valenzuela Anion gap [Moles/Vol] 10.9 mmol/L Normal [facility] Comment on above: Performed By: #### C MP, LIPID #### [facility] [address] [address] [address] Ricky Valenzuela AST [Catalytic activity/Vol] 10 U/L Critically low 15-37 [facility] Comment on above: Performed By: #### C MP, LIPID #### [facility] [address] [address] [address] Ricky Valenzuela Bilirubin [Mass/Vol] 0.2 mg/dL Normal 0.2-1.0 [facility] Comment on above: Performed By: #### C MP, LIPID #### [facility] [address] [place] [address] Dr. Ricky Valenzuela Calcium [Mass/Vol] 9.0 mg/dL Normal 8.5-10.1 [facility] Comment on above: Performed By: #### C MP, LIPID #### [facility] [address] [place] [address] Dr. Ricky Valenzuela Chloride [Moles/Vol] 100 mmol/L Normal 98-107 [facility] Comment on above: Performed By: #### C MP, LIPID #### [facility] [address] [address] [address] Ricky Valenzuela CO2 [Moles/Vol] 32.2 mmol/L Critically high 21.0-32.0 [facility] Comment on above: Performed By: #### C MP, LIPID #### [facility] [address] [place] [address] Dr. Ricky Valenzuela Creatinine [Mass/Vol] 0.95 mg/dL Normal 0.55-1.02 [facility] Comment on above: Performed By: #### C MP, LIPID #### [facility] [address] [address] [address] Ricky Valenzuela EGFR-AF [place] >60 Normal >=60 [facility] Comment on above: Performed By: #### C MP, LIPID #### [facility] [address] [address] [address] Ricky Valenzuela EGFR-NON AF [place] >60 Normal >=60 [facility] Comment on above: Performed By: #### C MP, LIPID #### [facility] [address] [address] [address] Ricky Valenzuela Globulin (S) [Mass/Vol] 4.2 g/dL Normal [facility] Comment on above: Performed By: #### C MP, LIPID #### [facility] [address] [address] [address] Ricky Valenzuela Glucose [Mass/Vol] 200 mg/dL Critically high 74-106 [facility] [place] Comment on above: Performed By: #### C MP, LIPID #### [facility] [address] [address] [address] Ricky Valenzuela Potassium [Moles/Vol] 4.1 mmol/L Normal 3.5-5.1 [facility] Comment on above: Performed By: #### C MP, LIPID #### [facility] [address] [address] [address] Ricky Valenzuela Protein [Mass/Vol] 7.5 g/dL Normal 6.4-8.2 [facility] Comment on above: Performed By: #### C MP, LIPID #### [facility] [address] [address] [address] Ricky Valenzuela Sodium [Moles/Vol] 139 mmol/L Normal 136-145 [facility] Comment on above: Performed By: #### C MP, LIPID #### [facility] [address] [address] [address] Ricky Valenzuela Urea nitrogen [Mass/Vol] 13.0 mg/dL Normal 7.0-18.0 [facility] Comment on above: Performed By: #### C MP, LIPID #### [facility] [address] [address] [address] Ricky Valenzuela Urea nitrogen/Creatinine [Mass ratio] 13.7 mg/mg Normal [facility] Comment on above: Performed By: #### C MP, LIPID #### [facility] [address] [address] [address] Ricky Valenzuela POINT OF CARE GLUCOSEon 05 Glucose [Mass/Vol] 176 mg/dL Critically high 74-106 T [facility] Comment on above: Performed By: #### P OCGLUC #### [facility] [address] [address] [address] Ricky Valenzuela Vital Signs Date Time Vital Sign Value Performing Clinician Faci lity 12-31-2023 10:06-0500 Body height 157.5 cm Sivan Solo DO Work Phone: [facility] 12-31-2023 10:06-0500 Body mass index (BMI) [Ratio] 39.14 kg/m2 Sivan Solo DO Work Phone: [facility] 12-31-2023 10:06-0500 Body weight 97.07 kg Sivan Solo DO Work Phone: [facility] 12-31-2023 10:06-0500 Diastolic blood pressure 72 mm[Hg] Sivan Solo DO Work Phone: [facility] 12-31-2023 10:06-0500 Heart rate 95 /min Sivan Solo DO Work Phone: [facility] 12-31-2023 10:06-0500 SaO2% (BldA) [Mass fraction] 97 % Sivan Solo DO Work Phone: [facility] 12-31-2023 10:06-0500 Systolic blood pressure 118 mm[Hg] Sivan Solo DO Work Phone: [facility] 12-30-2023 10:46-0500 Body mass index (BMI) [Ratio] 40.06 kg/m2 Sonam Mansfieldzpatrick LUDLOW MACHINE OPERATOR Work Phone: [facility] 12-30-2023 10:46-0500 Body weight 99.34 kg Sonam Drake LUDLOW MACHINE OPERATOR Work Phone: [place] [id number] 10:46-0500 Diastolic blood pressure 74 mm[Hg] Sonam Riverpatrick LUDLOW MACHINE OPERATOR Work Phone: [facility] 12-30-2023 10:46-0500 Heart rate 97 /min Sonam Riverpatrick LUDLOW MACHINE OPERATOR Work Phone: [facility] 12-30-2023 10:46-0500 SaO2% (BldA) [Mass fraction] 98 % Sonam Riverpatrick LUDLOW MACHINE OPERATOR Work Phone: [facility] 12-30-2023 10:46-0500 Systolic blood pressure 98 mm[Hg] Sonam Riverpatrick LUDLOW MACHINE OPERATOR Work Phone: [facility] 01-18-2023 09:10-0500 Body height 156.21 cm Elle Dejesusmond Other [facility] Other 01-18-2023 09:10-0500 Body mass index (BMI) [Ratio] 42.82 kg/m2 Elle Dejesusmond Other [facility] Other 01-18-2023 09:10-0500 Body temperature 98.2 [degF] Elle Dejesusmond Other [facility] Other 01-18-2023 09:10-0500 Body weight 104.51 kg Elle Dejesusmond Other [facility] Other 01-18-2023 09:10-0500 Diastolic blood pressure 92 mm[Hg] Elle Dejesusmond Other [facility] Other 01-18-2023 09:10-0500 Respiratory rate 18 /min Elle Dejesusmond Other [facility] Other 01-18-2023 09:10-0500 SaO2% (BldA) [Mass fraction] 97 % Elle Dejesusmond Other [facility] Other 01-18-2023 09:10-0500 Systolic blood pressure 145 mm[Hg] Elle Hendricks Other [facility] Other Encounters Encounter Date Encounter Type Care Provider Facility Start: 01-14-2024 End: 01-14-2024 Refill Jolly Castaneda MA [facility] Comment on above: Lumbar back pain Start: 12-31-2023 End: 12-31-2023 Clinisync Result Encounter Sonam Drake LUDLOW MACHINE OPERATOR Work Phone: [facility] Unsolicited Start: 12-31-2023 End: 12-31-2023 Clinisync Result Encounter Sonam Drake LUDLOW MACHINE OPERATOR Work Phone: [facility] Unsolicited Start: 12-31-2023 End: 12-31-2023 Office consultation new/estab patient 60 min Sivan Villegas DO Work Phone: [facility] [address] Comment on above: JANETT (obstructive sle ep apnea) (Primary Dx); Hypersomnia; Snoring; Primary insomnia; Tobacco abuse Start: 12-31-2023 End: 12-31-2023 ambulatory SIVAN VILLEGAS Not Available Start: 12-30-2023 End: 12-30-2023 Bamboo flowsheet Sonam Princek LUDLOW MACHINE OPERATOR Work Phone: [facility] Start: 12-30-2023 End: 12-30-2023 Bamboo flowsheet Sonam Valenciatrick LUDLOW MACHINE OPERATOR Work Phone: [facility] Start: 12-30-2023 End: 12-30-2023 Office outpatient visit 15 minutes Snoam Drake LUDLOW MACHINE OPERATOR Work Phone: [facility] Comment on above: Type 2 diabetes cory itus with diabetic microalbuminuria, without long-term current use of insulin ([facility]) (Primary Dx); Essential hypertension; Other hyperlipidemia (CMS/HCC); Snoring; Mixed urge and stress incontinence Start: 12-30-2023 End: 12-30-2023 ambulatory SONAM VALENCIATRICK Not Available Start: 12-17-2023 End: 12-17-2023 Refill Jolly Castaneda MA [facility] Comment on above: Migraine with aura a nd without status migrainosus, not intractable (CMS/HCC); Diabetic polyneuropathy associated with type 2 diabetes mellitus ([facility]/HCC) Start: 12-17-2023 End: 12-18-2023 Refill Sonam Drake NP Work Phone: [facility] Comment on above: Gout, unspecified ca use, unspecified chronicity, unspecified site Start: 10-04-2023 ambulatory Facility:[facility] Start: 10-03-2023 End: 10-03-2023 ambulatory SONAM DRAKE Not Available Start: 08-22-2023 End: 08-22-2023 ambulatory CRISTINA FAWWAD Not Available Start: 08-05-2023 End: 08-05-2023 ambulatory CRISTINA FAWWAD Not Available Start: 07-04-2023 End: 07-04-2023 ambulatory CRISTINA FAWWAD Not Available Start: 05-02-2023 End: 05-02-2023 ambulatory CRISTINA FAWWAD Not Available Start: 04-30-2023 End: 04-30-2023 ambulatory [facility] Work Phone: Start: 04-30-2023 End: 04-30-2023 Patient encounter procedure [facility] Work Phone: Start: 03-21-2023 Orders Only Shaikh Maricel HOLLIS Work Phone: [facility] Comment on above: Diabetic polyneuropa thy associated with type 2 diabetes mellitus ([facility]/HCC) (Primary Dx) Start: 03-19-2023 End: 03-19-2023 ambulatory Ana Luisa Curtis Other [facility] Other Start: 03-19-2023 Office outpatient vi sit 15 minutes Ana Luisa Calvey [facility] [place] [facility] Start: 02-25-2023 End: 02-25-2023 ambulatory ALICIA GARCIA Not Available Start: 01-29-2023 End: 01-29-2023 ambulatory SHAIKH MARICEL Not Available Start: 01-23-2023 End: 01-23-2023 ambulatory Ana Luisa Calvey Other [facility] Other Start: 01-23-2023 Office outpatient vi sit 15 minutes Ana Luisa Calvey [facility] [place] [facility] Start: 01-18-2023 End: 01-18-2023 ambulatory Elle Hendricks Other [facility] Other Start: 01-18-2023 Office outpatient vi sit 15 minutes Elle Ruthie [facility] Start: 09-19-2022 End: 09-19-2022 ambulatory Ana Luisajesus Curtis Other [facility] Other Start: 09-19-2022 Telephone encounter Ana Luisa Curtis [facility] Start: 07-12-[address] JONATHAN EDWARDS Facili ty:[facility] Start: 06-07-2022 End: 06-08-[address] JONATHAN EDWARDS Facility:[facility] Start: 05-02-2022 End: 05-02-2022 ambulatory Ana Luisa Curtis Other [facility] Other Start: 05-02-2022 Office outpatient ne w [...] Start: 08-30-2021 End: 08-31-2021 ambulatory RADHA BARCLAY [facility] Start: 08-30-2021 End: 08-30-2021 Subsequent hospital visit by physician Sr House DO Work Phone: [facility] Comment on above: Routine cervical sme ar Start: 08-16-2021 Encounter for genera l adult medical examination without abnormal findings DR RICARDO HOLM . [facility] Start: 08-09-2021 End: 08-10-2021 Encounter [...] ALL CBC WITH AUTO DIFF Sonam Drake LUDLOW MACHINE OPERATOR Work Phone: Start: 03-20-2023 Mammography Shaikh Marie calero MD Work Phone: Start: 08-30-2021 Microscopic observat ion [Identifier] in Cervix by Cyto stain House DO Work Phone: Plan of Treatment Date Care Activity Detail Author Start: 03-28-2026 Screening for malign ant neoplasm of colon [facility] Start: 03-08-2026 Screening for malign ant neoplasm of colon [facility] Start: 12-30-2024 Urine screening for protein Diabetes: Urine Protein Screening [facility] Start: 08-30-2024 Screening for malign ant neoplasm of cervix [facility] Start: 07-26-2024 Urine screening for protein Diabetes: Urine Protein Screening [facility] Start: 03-26-2024 End: 03-26-2024 Patient encounter procedure 03/26/2024 2:00 PM EST Office Visit [facility] [address] [place] [address] Sonam Drake, RONALDO [address] [place] [phone] [facility] Start: 03-24-2024 End: 03-24-2024 Patient encounter procedure 03/24/2024 4:00 PM EST Office Visit [facility] [address] [place] [address], [place] [address] Za Wilkerson NP [address] [place], [place] [facility] Start: 03-20-2024 Screening for malign ant neoplasm of breast Mammogram [facility] Start: 02-27-2024 End: 02-27-2024 Patient encounter procedure 02/27/2024 11:35 AM EST Office Visit [facility] [address] [place] [address] Alicia Garcia MD [address] [place] [address] [facility] Start: 02-25-2024 End: 02-25-2024 Patient encounter procedure 02/25/2024 3:30 PM EST Office Visit [facility] [address] [place] [phone] Sonam Drake, RONALDO [address] [place] [address] [facility] Start: 02-12-2024 Glaucoma screening Diabetes: R etinopathy Screening [facility] Start: 01-25-2024 Hemoglobin A1c measurement Diabetes: Hemoglobin A1C [facility] Start: 12-31-2023 End: 12-30-2024 Polysomnography [facility] Routine JANETT (obstructive sleep apnea) Expected: 12/31/2023 (Approximate), Expires: 12/30/2024 [facility] Work Phone: Comment on above: Expected: 12/31/2023 (Approximate), Expires: 12/30/2024 Start: 12-31-2023 End: 12-31-2023 Patient encounter procedure 12/31/2023 10:00 AM EST Office Visit [facility] [address] [place] [address] Sivan Villegas DO [address] [place] [address] [facility] [address] Start: 12-30-2023 End: 12-29-2024 CBC W Auto Differential panel - Blood CBC and differential Lab Routine Type 2 diabetes mellitus with diabetic microalbuminuria, without long-term current use of insulin ([facility]) Essential hypertension Expected: 12/30/2023 (Approximate), Expires: 12/29/2024 [facility] Comment on above: Expected: 12/30/2023 (Approximate), Expires: 12/29/2024 Start: 12-30-2023 End: 12-29-2024 Comprehensive metabolic 2000 panel - Serum or Plasma Comprehensive metabolic panel Lab Routine Type 2 diabetes mellitus with diabetic microalbuminuria, without long-term current use of insulin ([facility]/HCC) Essential hypertension Expected: 12/30/2023 (Approximate), Expires: 12/29/2024 [facility] Comment on above: Expected: 12/30/2023 (Approximate), Expires: 12/29/2024 Start: 12-30-2023 End: 12-29-2024 Hemoglobin A1c/Hemoglobin.total in Blood Hemoglobin A1c Lab Routine Type 2 diabetes mellitus with diabetic microalbuminuria, without long-term current use of insulin (CMS/HCC) Expected: 12/30/2023 (Approximate), Expires: 12/29/2024 [facility] Comment on above: Expected: 12/30/2023 (Approximate), Expires: 12/29/2024 Start: 12-30-2023 End: 12-30-2023 Patient encounter procedure 12/30/2023 10:30 AM EST Office Visit [facility] [address] [place] [phone] Sonam Drake NP [address] [place] [phone] [facility] Start: 10-13-2023 Influenza vaccination Influenza Vacc ine (#1) [facility] Start: 08-11-2023 Influenza vaccination Influenza Vacc ine (#1) [facility] Comment on above: Postponed from 10/12 (Patient Refused) Start: 05-02-2023 End: 05-02-2023 Patient encounter procedure 05/02/2023 2:00 PM EDT Office Visit [facility] [address] [place] [phone] Shaikh Connelly MD [address] [place] [phone] [facility] Start: 02-17-2023 Hemoglobin A1c measurement Diabetes: Hemoglobin A1C [facility] Start: 09-04-2022 End: 09-04-2022 Patient encounter procedure 09/04/2022 Office Visit Obstetrics and Gynecology Radha Barclay, ANGEL - [address] [facility] [address] [place] [address] [facility] Start: 10-12-2021 Influenza vaccination Flu vaccine (# 1) [facility] Start: 10-21-2013 Screening for malign ant neoplasm of breast Breast cancer screen [facility] Start: 10-21-2013 Shingles vaccine (1 of 2) [place] g[place] vaccine (1 of 2) [facility] Start: 10-21-2008 Screening for malign ant neoplasm of colon [facility] Start: 2003 Lipid panel Lipids RUFE Ye [facility] Start: 10-21-1998 Diabetes screen Diabetes screen [facility] Start: 10-21-1993 Screening for malign ant neoplasm of cervix [facility] Start: 10-21-1982 DTaP/Tdap/Td vaccine (1 - Tdap) DTaP/Tdap/Td vaccine (1 - Tdap) [facility] Start: 10-21-1982 Urine screening for protein Diabetes: Urine Protein Screening [facility] Start: 10-21-1981 Hepatitis C screening Hepatitis C sc reen [facility] Start: 10-21-1978 HIV screening HIV screen [facility] Start: 1975 Depression Screen Depression Screen [facility] Start: 04-20-1964 COVID-19 Vaccine (#1) COVID-19 Vacci ne (#1) [facility] Start: 1963 Screening for malign ant neoplasm of colon [facility] End: 08-30-2021 Cytopathology procedure, preparation of smear, genital source [facility]AP SME[facility] Lab Routine Routine cervical smear 1 Occurrences starting 08/30/2021 until 08/30/2021 [facility] Work Phone: Comment on above: 1 Occurrences starti ng 08/30/2021 until 08/30/2021 Microalbumin/Creatin ine panel in random Urine Microalbumin / creatinine urine ratio Lab Routine Type 2 diabetes mellitus with diabetic microalbuminuria, without long-term current use of insulin ([facility]) Essential hypertension Ordered: 12/30/2023 [facility] Work Phone: Comment on above: Ordered: 12/30/2023 Immunizations Immunization Date Immunization Notes Care Provider Tima garcia 01-14-2017 influenza, injectabl e, quadrivalent, preservative [facility] 01-14-2017 influenza virus vacc ine, unspecified formulation Jolly Castaneda MA [facility] Payers Date Payer Category Payer Private Health Insurance [employer] [id number] 2022 Unknown [employer] [id number] 2022-Present [phone] [address] [address] [place] [address] [id number] [id number] 2012 Medicare [id number] [id number]. 2.7.3.339774.315 1963 Unknown [id number] 2.16.840.1.174054.3.579. 2.173 1963 Unknown [id number] 2.16.840.1.294316.3.579. 2.593 1963 Unknown [id number] 2.16.840.1.816836.3.579. 2.593 1963 Unknown [id number] 2.16.840.1.362028.3.579. 2.593 1963 Unknown [id number] 2.16.840.1.368281.3.579. 2.593 1963 Unknown [id number] 2.16.840.1.673043.3.579. 2.593 1963 Unknown [id number] 2.16.840.1.318834.3.579. 2.593 1963 Unknown [id number] 2.16.840.1.371829.3.579. 2.593 1963 Unknown [id number] 2.16.840.1.684588.3.579. 2.593 1963 Unknown [id number] 2.16.840.1.453998.3.579. 2.593 1963 Unknown [id number] 2.16.840.1.426876.3.579. 2.593 1963 Unknown [id number] 2.16.840.1.048092.3.579. 2.593 1963 Unknown [id number] 2.16.840.1.729336.3.579. 2.59 1963 Unknown [id number] 2.16.840.1.472671.3.579. 2.59 1963 Unknown [id number] 2.16.840.1.629802.3.579. 2.59 1963 Unknown [id number] 2.16.840.1.096823.3.579. 2.593 1963 Unknown [id number] 2.16.840.1.579927.3.579. 2.59 1963 Unknown [id number] 2.16.840.1.529467.3.579. 2.1258 1963 Unknown [id number] 2.16.840.1.829875.3.579. 2.1258 1963 Unknown [id number] 2.16.840.1.130270.3.579. 2.1258 1963 Unknown [id number] 2.16.840.1.505967.3.579. 2.1258 1963 Unknown [id number] 2.16.840.1.414439.3.579. 2.1258 1963 Unknown [id number] 2.16.840.1.530355.3.579. 2.1258 1963 Unknown [id number] 2.16.840.1.861850.3.579. 2.1258 1963 Unknown [id number] 2.16.840.1.429288.3.579. 2.125 1963 Unknown [id number] 2.16.840.1.439911.3.579. 2.1259 1959 Medicare [id number] 1.2.840.798357.1.13.239. 2.7.3.722911.315 1959 Unknown [id number] 1.2.840.775367.1.13.239. 2.7.3.866783.315 1959 Unknown [id number] 2.16.840.1.223033.19 Medicare Medicare [id number] Self-pay Self Pay [id number] Social History Date Type Detail Facility Start: 08-30-2021 End: 12-31-2023 Tobacco smoking status IDIS Smokes tobacco daily [facility] Phone: History of tobacco use Cigarette Smoker [facility] Phone: Start: 08-30-2021 End: 12-31-2023 Tobacco use and exposure Smokeless tobacco non-user [facility] Phone: Start: 08-30-2021 Alcohol intake Current drinke r of alcohol (finding) [facility] Phone: Start: 08-30-2021 History SDOH Alcohol Comment occasional [facility] Phone: Start: 1965 Sex Assigned At Not on file [facility] Phone: Start: 08-20-2021 End: 08-30-2021 Exposure to SARS-CoV-2 (event) Not sure [facility] Start: 02-25-2023 End: 10-02-2023 Sex Assigned At [facility] Start: 01-29-2023 End: 08-05-2023 Tobacco smoking status IDIS Ex-smoker [facility] History of tobacco use Current smoker [facility] Start: 01-29-2023 End: 10-02-2023 Cigarettes smoked current (pack per day) - Reported 0.5 [facility] Start: 02-25-2023 End: 12-31-2023 Alcohol intake Lifetime non-drinker (finding) [facility] Start: 1965 Sex Assigned At Female [facility] History of tobacco use Passive smoker [facility] How often do you nee d to have someone help you when you read instructions, pamphlets, or other written material from your doctor or pharmacy [SILS] Patient declines to respond [facility] Are you now , , , , never or living with a partner? [facility] How often to you hav e [...] - these days [OSQ] To some extent [facility] Medical Equipment Procedure Code Equipment Code Equipment Origin al Text Equipment Identifier Dates USE TO TEST BLOO D SUGAR TWICE DAILY [id number] Start: 06-08-2021 Clinical Notes 06-20-2021 to 01-14-2024 Telephone Encounter - Jolly Castaneda MA - 01/14/2024 8:34 AM ESTTelephone Encounter - Jolly Castaneda MA - 01/14/2024 8:34 AM ESTSivan Villegas DO - 12/31/2023 10:00 AM ESTPatient Instructions Note Date & Type Note Facility 01-14-2024 Telephone encount er Note GIOVANNA:12/30/2023 NOV:03/26/2023 [facility] 01-14-2024 Miscellaneous Notes Formattin g of this note might be different from the original. GIOVANNA:12/30/2023 NOV:03/26/2023 documented in this encounter [facility] 12-31-2023 History of Presen t illness Narrative Images from the original note were not included. No chief complaint on file. Subjective SLEEP CONSULT REFERRAL: Snoring, concern for JANETT, needing sleep study - labs @ [facility]; referral received from Sonam Drake CNP. 58 [...] was counseled on the risks of stroke, IA, and sudden with JANETT, along with the [...] clinic: 2 months documented in this encounter [facility] 12-30-2023 History of Presen t illness [...] R ALBUMIN GLOBULIN RATIO 0.8 Resulting Agency [facility] DMII: Metformin Bid and Ozempic Most recent [...] microalbuminuria, without long-term current use of insulin ([facility]) - Primary Currently taking Metformin Bid and [...] First appointment tomorrow. documented in this encounter [facility] 12-30-2023 Instructions Sonam Drake NP - 12/30/2023 10:30 AM EST FASTING labs ordered. Nothing to eat or drink for 12 hours prior to blood draw. Water and black coffee ok. Call if you need anything! documented in this encounter [facility] 12-17-2023 Telephone encount er Note GIOVANNA:10/03/2023 NOV:12/30/2023 [facility] 12-17-2023 Miscellaneous Notes Formattin g of this note might be different from the original. GIOVANNA:10/03/2023 NOV:12/30/2023 documented in this encounter [facility] 03-19-2023 Evaluation note Encounter Date Diagnosis [...] Mar, Left hand pain (ICD-10 - M79.642) [facility] 12-13-2023 Evaluation note* Encounter Date Diagnosis [...] noted. Patient will f/u in 4 weeks. [facility] 12-08-2023 Evaluation note* Encounter Date Diagnosis [...] that was performed at [facility] which revealed degenerative changes in the hand as well as a remote avulsion fracture of the thumb. Patient states her family doctor is treating her for gout in her hand. Jan, History of gout (ICD-10 - Z87.39) Jan, Other Gout material w as printed [facility] 08-09-2023 Evaluation note* Encounter Date Diagnosis Assessment Notes Treatment Notes Treatment Clinical Notes Sep, Right wrist pain (ICD-10 - M25.531) [facility] 04-27-2023 NoteCONSULTATION CONSULTATION DATE: 06/07/2022 TO: [...] our patients to inform us about any [id number] medications or herbal remedies/nutritional supplements/alternative remedies. 2. [...] with their primary care provider.[facility] [id number] Evaluation note * Encounter Date Diagnosis Assessment [...] understanding and is agreeable to treatment plan. [facility] 01-26-2023 NoteCONSULTATION PROCEDURE DATE: 03/08/2022 PREOPERATIVE [...] followed up in the clinic.[facility] [id number] NotePROCEDURE: XR KNEE LT 4V or > [...] authenticated by: PATTIE SALTER Date: 2022-02-16 11:29[facility] [id number] NoteCONSULTATION CONSULTATION DATE: 02/09/2022 HISTORY OF PRESENT [...] Patient agrees with this plan.[facility] [id number] NotePROCEDURE: XR WRIST RT MIN 3 V COMPARISON: None. HISTORY: Injury of right wrist FINDINGS: BONES:No acute fracture or dislocation. Corticated bone fragment identified along the first carpometacarpal joint [degenerative in nature SOFT TISSUES:Moderate diffuse soft tissue swelling EFFUSION:None visible. OTHER: Negative. IMPRESSION: Soft tissue swelling, no acute fracture Electronically authenticated by: RYAN GOLDMAN Date: 2021-11-16 18:59[facility] [id number] NoteCONSULTATION CONSULTATION DATE: 11/01/2021 HISTORY OF PRESENT [...] Patient agrees with this plan.[facility] [id number] NoteCONSULTATION PROCEDURE DATE: 11/01/2021 PRE AND POSTOPERATIVE [...] followed up in the clinic.[facility] [id number] NoteCONSULTATION PROCEDURE DATE: 08/09/2021 PREOPERATIVE DIAGNOSIS: Bilateral [...] CRYS PIERCE . 08/10/2021 13:37:00[facility] [id number] NoteCONSULTATION CONSULTATION DATE: 07/19/2021 HISTORY OF PRESENT [...] and Approved by: CRYS PIERCE . 07/20/2021 10:33:00[facility]05-25-2022 NotePROCEDURE: XR FOOT RT MIN 3 [...] Electronically authenticated by: PATTIE SALTER Date: 2021-07-05 11:11[facility]05-10-2022 NoteCONSULTATION CONSULTATION DATE: 06/20/2021 CHIEF COMPLAINT: [...] Approved by: DR RICARDO HOLM . 06/27/2021 10:40:00[facility] Diagnosis Routine cervical smear Screening for malignant neoplasm of the cervix documented in this encounter [employer] Work Phone: evaluation note* Diagnosis Diabetic polyneuropathy associated with type 2 diabetes mellitus (CMS/HCC)- Primary documented in this encounter [facility] HealthcareEvaluation noteNo assessment information [facility] Work Phone: Evaluation note* Diagnosis Encounter [...] diabetes mellitus (CMS/HCC) documented in this encounter [facility] HealthcareEvaluation note* Diagnosis Encounter for screening mammogram [...] chronicity, unspecified site documented in this encounter [facility] HealthcareEvaluation note* Diagnosis Encounter for screening mammogram [...] Tobacco use disorder documented in this encounter [facility] HealthcareEvaluation note* Diagnosis Encounter for screening [...] complication, without long-term current use of insulin ([facility]) Diabetic polyneuropathy associated with type 2 diabetes mellitus ([facility]) Mixed urge and stress incontinence Mixed incontinence urge and stress (male)(female) Snoring Other dyspnea and respiratory abnormality Encounter for long-term (current) use of high-risk medication Encounter for long-term (current) use of other medications Type 2 diabetes mellitus with diabetic microalbuminuria, without long-term current use of insulin ([facility])- Primary Essential hypertension Unspecified essential hypertension Other hyperlipidemia (CMS/HCC) Snoring Other dyspnea and respiratory abnormality Mixed urge and stress incontinence Mixed incontinence urge and stress (male)(female) documented in this encounter [facility] HealthcareEvaluation note* Diagnosis Encounter for screening mammogram for breast cancer- Primary Encounter for screening for malignant neoplasm of colon Type 2 diabetes mellitus without complication, without long-term current use of insulin ([facility]/HCC) Upper respiratory tract infection, unspecified type URTI (acute upper respiratory infection) Acute upper respiratory infections of unspecified site Migraine with aura and without status migrainosus, not intractable (CMS/HCC)- Primary Type 2 diabetes mellitus without complication, without long-term current use of insulin ([facility]/HCC) Morbid (severe) obesity due to excess calories (E66.01) Body mass index [BMI] 40.0-44.9, adult (Z68.41) Essential hypertension Unspecified essential hypertension Essential hypertension- Primary Unspecified essential hypertension Type 2 diabetes mellitus without complication, without long-term current use of insulin ([facility]) Back spasm Other symptoms referable to back Closed fracture of proximal end of left fibula with routine healing, unspecified fracture morphology, subsequent encounter Closed nondisplaced fracture of second metatarsal bone of left foot with routine healing, subsequent encounter Other hyperlipidemia ([facility]) Hyperuricemia Other abnormal blood chemistry Osteoporosis, unspecified osteoporosis type, unspecified pathological fracture presence ([facility]) Diabetic polyneuropathy associated with type 2 diabetes mellitus ([facility]) Gastroesophageal reflux disease without esophagitis Esophageal reflux Migraine with aura and without status migrainosus, not intractable ([facility]) Hospital discharge follow-up Other follow-up examination Type 2 diabetes mellitus with diabetic microalbuminuria, without long-term current use of insulin ([facility])- Primary Other hyperlipidemia ([facility]) Essential hypertension Unspecified essential hypertension Bilateral lower extremity edema Lumbar back pain- Primary Lumbago Hospital discharge follow-up Other follow-up examination Essential hypertension- Primary Unspecified essential hypertension Type 2 diabetes mellitus with diabetic microalbuminuria, without long-term current use of insulin ([facility]) Morbid (severe) obesity due to excess calories (E66.01) Other hyperlipidemia ([facility]) Lumbar back pain Lumbago Type 2 diabetes mellitus without complication, without long-term current use of insulin ([facility]) Diabetic polyneuropathy associated with type 2 diabetes mellitus ([facility]) Mixed urge and stress incontinence Mixed incontinence urge and stress (male)(female) Snoring Other dyspnea and respiratory abnormality Encounter for long-term (current) use of high-risk medication Encounter for long-term (current) use of other medications Type 2 diabetes mellitus with diabetic microalbuminuria, without long-term current use of insulin ([facility])- Primary Essential hypertension Unspecified essential hypertension Other hyperlipidemia ([facility]) Snoring Other dyspnea and respiratory [...] History tubal ligation Hospitalization History see above [facility] Other Summary Purpose Family History Relationship Condition Age at Onset Recorded Date/T samreen Not Specified Heart disease Unknown Diabetes mellitus Unknown Advance Directives Advance Directive Response Recorded Date/ Time Advance Directives No January 12, 2017 9:25pm Chief Complaint and Reason for Visit Chief Complaint 4-6 WEEK RECHECK Additional Source Comments Care Teams (unrecognized sec tion and content) Environmental Intern Relationship Specialty Start Date End Date Sr Jonathan Edwards P, DO [address] [address] [place], [place] [id number] PCP - General Family Medicine 08/30/21 Environmental Intern Relationship Specialty Start Date End Date Shaikh [...] April 30, 2023 End: April 30, 2023 Environmental Intern Relationship Specialty Start Date End Date Jose Chandler MD [address] [place] [phone] PCP - General Family Medicine 12/12/23 Sonam Drake NP [address] [place] [address] Nurse Practitioner Family Medicine 09/24/23 Environmental Intern Relationship Specialty Start Date End Date Jose Chandler MD [address] [place] [phone] PCP - General Family Medicine 12/12/23 Sonam Drake NP [address] [place] [address] Nurse Practitioner Family Medicine 09/24/23 Environmental Intern Relationship Specialty Start Date End Date Jose Chandler MD [address] [place] [address] PCP - General Family Medicine 12/12/23 Sonam Drake NP [address] [place] [address] Nurse Practitioner Family Medicine 09/24/23 Environmental Intern Relationship Specialty Start Date End Date Jose Chandler MD [address] [place] [phone] PCP - General Family Medicine 12/12/23 Sonam Drake NP [address] [place] [address] Nurse Practitioner Family Medicine 09/24/23 Environmental Intern Relationship Specialty Start Date End Date Jose Chandler MD [address] [place] [phone] PCP - General Family Medicine 12/12/23 Sonam Drake NP [address] [place] [address] Nurse Practitioner Family Medicine 09/24/23 Environmental Intern Relationship Specialty Start Date End Date Jose Chandler MD [address] [place] [phone] PCP - General Family Medicine 12/12/23 Sonam Drake NP [address] [place], [place] [address] [phone] Nurse Practitioner Family Medicine 09/24/23 INFORMATION SOURCE (unrecogn ized section and content) DATE CREATED AUTHOR 09/10/2021 [facility] DATE CREATED AUTHOR AUTHOR'S ORGANIZ ATION 06/08/2022 [facility] DATE CREATED AUTHOR AUTHOR'S ORGANIZ ATION 10/06/2023 [facility] DATE CREATED AUTHOR AUTHOR'S ORGANIZ ATION 01/01/2024 [facility] EPIC REASON FOR VISIT (unrecogniz [...] BE BASED ON THE PRIMARY CLINICAL RECORDS. [facility] [employer] provides no warranty or guarantee of the accuracy or completeness of information in this document.
[2024-01-28 08:58] VITALS: BP 119/76; PULSE 91; TEMP 36.6; O2SAT 95
[2024-01-28 09:03] LABS: Glucometer 130 mg/dL (74-106)
[2024-01-28] MEDS: 0.9 % SODIUM CHLORIDE 500 ML IV (09:10)
[2024-01-28] MEDS: LIDOCAINE HCL 2% 400 MG/20 ML MDV 8 ML INJ (10:49)
[2024-01-28] MEDS: BUPIVACAINE HCL 0.25% PF 25 MG/10 ML VIAL 4 ML INJ (10:49)
[2024-01-28] MEDS: METHYLPREDNISOLONE ACETATE 40 MG/ML VIAL INJ (10:50)
[2024-01-28 10:52] VITALS: BP 102/74; PULSE 104; TEMP 36.6; O2SAT 94
[2024-01-28 10:53] VITALS: BP 102/74; PULSE 104; TEMP 36.6; O2SAT 94
--- NOTE | 2024-01-28 11:14 | W.PM.PROCNOT ---
Date of procedure: 01/28/24 Pre-op diagnosis: lumbar spondylosis Post-op diagnosis: same as pre-op Procedure: Left lumbar 4/5, 5/S1 Radiofrequency ablation Under fluoroscopic guidance Rhizotomy was created using radio frequency ablation at 80?C for 90 seconds 1 to 2 lesions created at each site. Post lesioning injection of 2 mL each of 0.25% Marcaine and 2% lidocaine with Depo-Medrol 40mg. 0.5 to 1 mL injected at each site IV in place yes If Intravenous fluids: NS at KVO Anesthesia local 2% lidocaine for Anesthesia Other: MAC Timeout process compliant After informed consent obtained.Patient brought to the procedure room placed in the prone position skin overlying the area was prepped and draped in a sterile fashion using betadine. 25 gauge needle was used to create a skin wheal over each of the targeted areas utilizing 2% lidocaine. A rhizotomy needle with a 10 mm active tip was inserted over each of the anesthetized areas and directed towards each of the medial branches accomplished under fluoroscopic guidance. after encountering the same we had positive sensory stimulation, negative motor stimulation was noted. lesions were then created. Post lesioning, steroid solution was injected needles removed. Patient was transferred to recovery room in stable condition to be discharged home after meeting criteria. Anesthesia: MAC Surgeon: Kenyon Bradford Condition: stable Disposition: PACU
== END 2024-01-28 11:14 | disposition home or self-care (01) ==
LOC: SURGOUT 08:28
PROVIDERS: Visit Provider Anesthesiology Pain Medicine
PROC: (CPT 1992; principal; 2024-01-28 09:40)
DX: M47.816 Spondylosis without myelopathy or radiculopathy, lumbar region (principal); E66.01 Morbid (severe) obesity due to excess calories; Z68.41 Body mass index [BMI] 40.0-44.9, adult; I10 Essential (primary) hypertension; E78.5 Hyperlipidemia, unspecified; M79.7 Fibromyalgia; E11.40 Type 2 diabetes mellitus with diabetic neuropathy, unspecified; Z79.84 Long term (current) use of oral hypoglycemic drugs
CPT/HCPCS: 36415; 64635; 64636; 82948; J0665; J1010; J2704

== ENCOUNTER 2024-01-29 09:18 | Outpatient (OUT) | payer OTHER, MEDICARE, SELFPAY ==
--- NOTE | 2024-01-29 09:22 | XR_ITS ---
The [address] [address] Patient Name: KARINA DE OLIVEIRA MRN: [id number] date: 1965 Sex: F Assigned Patient Location: [facility] Current Patient Location: Accession/Order Number: [id number] Exam Date: 01/29/2024 09:28 Report Date: 01/30/2024 05:38 At the request of: SUSSY JONES Procedure: XR foot LT min 3V PROCEDURE: XR foot LT min 3V HISTORY: Left Foot Pain COMPARISON: XR foot left 12/18/2023 FINDINGS: BONES:Mechanical fusion of the first tarsal-metatarsal joint via dorsal plate and screws. Mild degenerative changes the first metatarsophalangeal joint. Remote fracture and partial healing of second metatarsal diaphysis. Loss of plantar arch. SOFT TISSUES:No visible soft tissue swelling. EFFUSION:None visible. OTHER: Negative. XR/XR foot LT min 3V IMPRESSION: 1. Stable surgical changes without evidence of hardware failure or change in alignment. 2. Stable alignment and ongoing bone healing of second metatarsal fracture. Electronically authenticated by: PATTIE SALTER Date: 01/30/2024 05:38
== END 2024-01-29 09:19 | disposition home or self-care (01) ==
LOC: RAD 09:20
PROVIDERS: Visit Provider Podiatrist Foot & Ankle Surgery
DX: M79.672 Pain in left foot (principal); M24.675 Ankylosis, left foot; Z98.890 Other specified postprocedural states; S92.325D Nondisplaced fracture of second metatarsal bone, left foot, subsequent encounter for fracture with routine healing
CPT/HCPCS: 73630

== ENCOUNTER 2024-02-10 20:49 | Outpatient (OUT) | payer OTHER, MEDICARE, SELFPAY ==
--- OUTSIDE RECORDS SUMMARY | 2024-02-10 20:52 | XMS_ITS | CCD ---
Author Organization [facility] Care Team Providers Care Tube Sizer Operator Name Role Phone House DO, Sr [...] ., NARENDRONALDATH Attending Nellie vailable LAKSHMIPATHY ., DEMETRIUSATH Consulting Nellie vailable HOUSE, DR BASURTO Admitting Unavailable HOUSE, DR BASURTO Attending Unavailable HOUSE, DR BASURTO Primary Care Unavailable [place], DR RYAN Guzman Consulting Unavailable HOUSE, DR JONATHAN Trimble Unavailable HOLM ., DR RICARDO Belcher Admitting Unavailable HOUSE, DR BASURTO Primary Care Unavailable HOLM ., DR RICARDO Belcehr Attending Unavailable HOLM ., DR RICARDO Belcher [...] Shaikh Connelly MD Primary Care Provider Vidal RUG DRY ROOM ATTENDANT, Sonam Unavailable [phone] Jose Chandler MD Primary Care Provider ALICIA GARCIA Attending Unavailable SHAIKH CONNELLY Attending Unavailable SHAIKH CONNELLY Attending Unavailable SHAIKH CONNELLY Attending Unavailable SHAIKH CONNELLY Attending Unavailable SONAM DRAKE Attending UnavailSHAIKH Knott Attending Unavailable SONAM DRAKE Attending UnavailSIVAN Cruz Attending Unavailable SONAM DRAKE Referring Unavailcurtis Chandler MD, Jose Primary Care Provider [phone] Medications Current Medications Medication Drug Class(es) Dates [...] 2017 1:00am baclofen 20 mg oral tablet (16 sources) gamma-Aminobutyric Acid-ergic Agonist Start: 08-22-2023 End: [...] the face, 30 day supply 118 mL 02/25/2023 Active cholecalciferol 0.025 mg oral capsule (1 source) Vitamin D take 1 capsule by mouth in the morning cholecalciferol (Vitamin D-3) 25 MCG (1000 UT) capsule Take 1,000 Units by mouth in the morning. 0 Active diclofenac sodium 75 mg delayed release oral tablet (20 sources) Nonsteroidal Anti-inflammatory Drug Start: 01-30-2024 take 1 tablet by mouth in the morning diclofenac (Voltaren) 75 MG EC tablet Indications: Lumbar back pain Take 1 tablet (75 mg) by mouth in the morning and 1 tablet (75 mg) before bedtime. Do not crush, chew, or split.. 90 tablet 01/30/2024 Active Start: 07-04-2023 End: 12-31-2023 take 1 tablet [...] 180 tablet 1 07/04/2023 12/31/2023 Start: 08-07-2021 End: 01-30-2024 take 1 tablet by mouth twice daily [...] day Active famotidine 20 mg oral tablet (17 sources) Histamine-2 Receptor Antagonist Start: 07-04-2023 End: [...] 08/16/2021 Active glimepiride 1 mg oral tablet (7 sources) Sulfonylurea Start: 09-03-2023 take 1 tablet [...] 1:00am metFORMIN hydrochloride 500 mg oral tablet (20 sources) Biguanide Start: 08-05-2023 End: 04-29-2024 take 1 tablet by mouth in the morning metFORMIN (Glucophage) 500 MG tablet Indications: Type 2 diabetes mellitus with diabetic microalbuminuria, without long-term current use of insulin (CMS/HCC) Take 1 tablet (500 mg) by mouth in the morning and 1 tablet (500 mg) in the evening. Take with meals. 180 tablet 01/30/2024 04/29/2024 Active Start: 08-07-2021 metFORMIN (GLU COPHAGE) 500 [...] sources) Ozempic (0.25 or 0.5 MG/DOSE) Active predniSONE 50 mg oral tablet (3 sources) Start: 08-18-19 End: 10-03-19 take 1 tablet by mouth once daily predniSONE (Deltasone) 50 MG tablet Take 50 mg by mouth Daily 08/18/2023 10/03/2023 Discontinued (Therapy completed) pregabalin 75 mg oral capsule (20 sources) Start: 09-05-19 End: 03-16-19 take 1 capsule by mouth [...] a day Active take 1 capsule by [facility] twice daily pregabalin (LYRICA) 50 MG capsule Lyrica 50 mg capsule Take 1 capsule twice a day by oral route. 0 Active Probiotic (5 sources) Probiotic Active raNITIdine 150 mg oral tablet (5 sources) Histamine-2 Receptor Antagonist take 1 tablet by mouth twice daily Ranitidine HCl 150 MG 1 Tablet Orally bid Active rizatriptan 10 mg oral tablet (16 sources) Serotonin-1b and Serotonin-1d Receptor Agonist Start: 4 End: 4 rizatriptan (Maxalt) 10 MG tablet Indications: Migraine with aura and without status migrainosus, not intractable (CMS/HCC) Take 1 tablet (10 mg) by mouth 1 (one) time if needed for migraine May repeat in 2 hours if unresolved. Do not exceed 30 mg in 24 hours. 9 tablet 12/17/2023 Active Robaxin-750 750 MG (5 sources) take 1 tablet by mouth every four hours Robaxin-750 750 MG 1 tablet Orally every 4 hrs Active rosuvastatin calcium 20 mg oral tablet (20 sources) HMG-CoA Reductase Inhibitor Start: 4 End: 4 take 1 tablet by mouth once daily [...] sodium 500 mg delayed release oral tablet (20 sources) Mood Stabilizer, Anti-epileptic Agent Start: 07-04-2023 [...] / oxyCODONE hydrochloride 5 mg oral tablet (19 sources) Opioid Agonist Start: 07-20-2022 End: 12-31-2023 [...] Active alendronic acid 70 mg oral tablet (20 sources) Bisphosphonate Start: 07-04-2023 End: 12-31-2023 take [...] 0 Active allopurinol 300 mg oral tablet (20 sources) Xanthine Oxidase Inhibitor Start: 07-04-2023 End: [...] 0 Active clindamycin 10 mg/ml topical lotion (13 sources) Lincosamide Antibacterial Start: 02-25-2023 End: 12-31-2023 clindamycin (Cleocin T) 1 % lotion Indications: Hidradenitis suppurativa Apply thin later to affected areas on the body every day during flares, 30 day supply 60 mL 02/25/2023 12/31/2023 Discontinued (Med list cleanup) colchicine 0.6 mg oral tablet (20 sources) Start: 12-18-2023 End: 12-31-2023 colchicine 0.6 [...] 30 tablet 11/04/2023 12/18/2023 Discontinued Start: 03-06-2023 End: 11-04-2023 colchicine 0.6 MG tablet Ind ications: Gout, unspecified cause, unspecified chronicity, unspecified site TAKE 2 TABLETS BY MOUTH AT ONSET OF ACUTE GOUT, MAY TAKE 1 TABLET IN HOUR. NO MORE THAN 3 TABLETS IN ONE DAY 30 tablet 03/06/2023 11/04/2023 Discontinued (Reorder) Start: 05-02-2022 take 1 tablet by alonso th every twenty-four hours Colchicine 0.6 MG 1 tablet Orally once daily for 30 days Apr, Active furosemide 20 mg oral tablet (12 sources) Loop Diuretic Start: 08-05-2023 End: 02-01-2024 [...] 12, 2017 1:00am January 15, 2017 2:23pm Pnfdhswnmirk-Vk-Pw on-Minerals (Multiple Vitamin, Womens) Tablet (1 source) Start: 01-12-2017 End: 01-15-2017 Qaaouepoiapo-Sz-Hd on-Minerals (Multiple Vitamin, Womens) Tablet Discontinued PO Daily January 12, 2017 1:00am January 15, 2017 2:23pm semaglutide (Ozempic, 1 MG/DOSE,) 4 MG/3ML solution pen-injector (15 sources) Start: 10-03-2023 End: 12-31-2023 inject 1 [...] 9 mL 1 10/03/2023 01/01/2024 Active Start: 07-04-2023 End: 10-03-2023 inject 1 mg by subcutaneous injection every week semaglutide (Ozempic, 1 MG/DOSE,) 4 MG/3ML solution pen-injector Indications: Type 2 diabetes mellitus without complication, without long-term current use of insulin (CMS/HCC) Inject 1 mg under the skin 1 (one) time per week 9 mL 1 07/04/2023 10/03/2023 Discontinued (Reorder) Start: 07-04-2023 inject 1 mg by subcu taneous injection every week semaglutide (Ozempic, 1 MG/DOSE,) 4 MG/3ML solution pen-injector Indications: Type 2 diabetes mellitus without complication, without long-term current use of insulin (CMS/HCC) Inject 1 mg under the skin 1 (one) time per week 9 mL 1 07/04/2023 Active Start: 01-29-2023 End: 04-29-2023 inject 1 [...] unspecified] 01-23-2023 Episodic Diabetes mellitus with complications (20 sources) Polyneuropathy due to type 2 diabetes mellitus; Translations: [Type 2 diabetes mellitus with diabetic polyneuropathy] Onset: 01-29-2023 03-21-2023 Chronic Diabetes mellitus without complication (9 sources) Type 2 diabetes mellitus without complications; Translations: [Type 2 diabetes mellitus without complication] Onset: 07-05-2021 Chronic Disorders of lipid metabolism (19 sources) Hyperlipidemia; Translations: [Other hyperlipidemia] Onset: 05-02-2023 05-02-2023 Chronic Essential hypertension (20 sources) Essential (primary) hypertension; Translations: [Hypertensive disorder] Onset: 04-16-2022 01-13-2017 Chronic Genitourinary symptoms and ill-defined conditions (18 sources) Incontinence; Translations: [Mixed incontinence] Onset: 10-03-2023 10-03-2023 Chronic Genitourinary symptoms and ill-defined conditions (8 sources) Increased frequency of urination; Translations: [Frequency of micturition] Onset: 12-30-2023 12-30-2023 Episodic Gout and other crystal arthropathies (13 sources) Gout; Translations: [Gout, unspecified] Chronic Headache; including migraine (16 sources) Migraine with aura; Translations: [Migraine with [...] Chronic Other nutritional; endocrine; and metabolic disorders (17 sources) Obesity caused by energy imbalance; Translations: [Morbid (severe) obesity due to excess calories] Onset: 05-02-2023 05-02-2023 Chronic Other nutritional; endocrine; and metabolic disorders (15 sources) Body mass index 40+ - severely [...] Da te Episodic/Chronic Fracture of lower limb (20 sources) Metatarsal bone fracture; Translations: [Fracture of unspecified metatarsal bone(s), unspecified foot, initial encounter for closed fracture] Onset: 07-04-2023 07-04-2023 Episodic Other aftercare (15 sources) Post-discharge follow-up; Translations: [Encounter for follow-up examination after completed treatment for conditions other than malignant neoplasm] Onset: 07-04-2023 07-04-2023 Episodic Other and unspecified benign neoplasm (15 sources) Melanocytic nevus of trunk; Translations: [Melanocytic [...] Onset: 11-16-2021 Episodic Other lower respiratory disease (20 sources) Snoring; Translations: [Snoring] Onset: 10-03-2023 10-03-2023 Episodic Other non-epithelial cancer of skin (16 sources) Basal cell carcinoma of nose; Translations: [...] Onset: 01-29-2023 Episodic Other upper respiratory infections (16 sources) Acute upper respiratory infection; Translations: [Acute upper respiratory infection, unspecified] Onset: 01-29-2023 01-29-2023 Episodic Residual codes; unclassified (15 sources) Bilateral lower limb edema; Translations: [Localized edema] Onset: 08-05-2023 08-05-2023 Episodic Unclassified (1 source) LOW BACK PAIN, UNSPECIFIED; Translations: [LOW BACK PAIN, UNSPECIFIED] Onset: 05-10-2022 Results Test Name Value Interpretation Reference Range Facility ALL CBC WITH AUTO DIFFon BASOPHILS ABSOLUTE AUTO 0.1 [facility] Basophils/100 WBC (Bld) 0.4 % 0.2 - 2.0 % [facility] Eosin[facility]/100 WBC (Bld) 3.2 % 0.9 - 7.0 % [facility] Erythrocyte distribution width (RBC) [Ratio] 15.6 % High 11.0 - 15.0 % [facility] Hematocrit (Bld) [Volume fraction] 42.4 % 36.0 - 48.0 % [facility] Healthcar e Hemoglobin (Bld) [Mass/Vol] 13.9 g/dL 12.0 - 16.0 g/dL [facility] IMMATURE GRANULOCYTES ABS AUTO 0.09 High [facility] Immature granulocytes/100 WBC (Bld) 0.7 % High 0.0 - 0.5 % [facility] Interpretation and review of laboratory results Abnormal [facility] LYMPHOCYTES ABSOLUTE AUTO 3.5 [facility] Lymphocytes/100 WBC (Bld) 27.7 % 20.5 - 60.0 % [facility] MCH (RBC) [Entitic mass] 31.4 pg 26.7 - 34.0 pg [facility] MCHC (RBC) [Mass/Vol] 32.8 g/dL 29.9 - 35.2 g/dL [facility] MCV (RBC) [Entitic vol] 95.7 fL 81.0 - 99.0 fL [facility] MONOCYTES ABSOLUTE AUTO 0.9 High [facility] Monocytes/100 WBC (Bld) 7.4 % 1.7 - 12.0 % [facility] NEUTROPHILS ABSOLUTE AUTO 7.7 High [facility] Neutrophils/100 WBC (Bld) 60.6 % 43.0 - 75.0 % [facility] Platelet mean volume (Bld) [Entitic vol] 10.9 fL 9.5 - 13.5 fL [facility] Healthc are [facility] EO # 0.4 [facility] PLT 219 [facility] RBC 4.43 [facility] WBC 12.8 High [facility] XR LSPINE 2_3 VIEWSon 2022 [...] PATTIE SALTER Date: 2022-06-07 11:15 Normal [facility] CBC AUTO DIFFon 04-12-2022 BASO # 0.1 103/ul Normal 0.0-0.1 [facility] Comment on above: Performed By: #### C BC ####[facility] [address] [place], [place] [address]DrPasquale Valenzuela Basophils/100 WBC (Bld) 0.5 % Normal 0.2-2.0 [facility] Comment on above: Performed By: #### C BC ####[facility] [address] [place], [place] [address]DrPasquale Valenzuela EO # 0.3 103/ul Normal 0.0-0.7 [facility] Comment on above: Performed By: #### C BC ####[facility] [address] [place], [place] [address]DrPasquale Valenzuela Eosinophils/100 WBC (Bld) 3.0 % Normal 0.9-7.0 [facility] Comment on above: Performed By: #### C BC ####[facility] [address] [place], [place] [address]DrPasquale Valenzuela Erythrocyte distribution width (RBC) [Ratio] 14.8 % Normal 11.0-15.0 [facility] Comment on above: Performed By: #### C BC ####[facility] [address] [place], [place] [address]DrPasquale Valenzuela Hematocrit (Bld) [Volume fraction] 40.6 % Normal 36.0-48.0 [facility] Comment on above: Performed By: #### C BC ####[facility] [address] [address]Dr. Ricky Valenzuela Hemoglobin (Bld) [Mass/Vol] 13.5 g/dL Normal 12.0-16.0 [facility] Comment on above: Performed By: #### C BC ####[facility] [address] [address]DrPasquale Ricky Valenzuela IG # 0.16 10e3/ul Critically high 0.00-0.03 [facility] Comment on above: Performed By: #### C BC ####[facility] [address]qi[address] [place], [place] [address]Dr. Ricky Nicolas IG % 1.4 % Critically high 0.0-0.5 [facility] Comment on above: Performed By: #### C BC ####[facility] [address] [place], [place] [address]DrPasquale Ricky Nicolas LYMPH # 3.4 103/ul Normal 1.2-3.8 [facility] Comment on above: Performed By: #### C BC ####[facility] [address] [place], [place] [address]DrPasquale Ricky Nicolas Lymphocytes/100 WBC (Bld) 30.4 % Normal 20.5-60.0 [facility] Comment on above: Performed By: #### C BC ####[facility] [address] [place], [place] [address]DrPasquale Ricky Nicolas MANUAL DIFF REQ NO Normal The [facility] Comment on above: Performed By: #### C BC ####[facility] [address] [place], [place] [address]Dr. Ricky Nicolas MCH (RBC) [Entitic mass] 31.8 pg Normal 26.7-34.0 [facility] Comment on above: Performed By: #### C BC ####[facility] [address] [place], [place] [address]Dr. Ricky Nicolas MCHC (RBC) [Mass/Vol] 33.3 g/dL Normal 29.9-35.2 [facility] Comment on above: Performed By: #### C BC ####[facility] [address] [address]DrPasquale Ricky Nicolas MCV (RBC) [Entitic vol] 95.5 fL Normal 81.0-99.0 [facility] Comment on above: Performed By: #### C BC ####[facility] [address] [place], [place] [address]DrPasquale Valenzuela MONO # 0.9 103/ul Critically high 0.3-0.8 [facility] Comment on above: Performed By: #### C BC ####[facility] [address] [place], [place] [address]DrPasquale Valenzuela Monocytes/100 WBC (Bld) 7.7 % Normal 1.7-12.0 [facility] Comment on above: Performed By: #### C BC ####[facility] [address] [place], [place] [address]DrPasquale Valenzuela NEUT # 6.3 103/ul Normal 1.4-6.5 [facility] Comment on above: Performed By: #### C BC ####[facility] [address] [place], [place] [address]DrPasquale Valenzuela Neutrophils/100 WBC (Bld) 57.0 % Normal 43.0-75.0 [facility] Comment on above: Performed By: #### C BC ####[facility] [address] [place], [place] [address]DrPasquale Valenzuela Platelet mean volume (Bld) [Entitic vol] 9.8 fL Normal 9.5-13.5 [facility] Comment on above: Performed By: #### C BC ####[facility] [address] [place], [place] [address]DrPasquale Valenzuela PLT 246 103/ul Normal 150-450 [facility] Comment on above: Performed By: #### C BC ####[facility] [address] [place], [place] [address]DrPasquale Valenzuela RBC 4.25 106/ul Normal 4.20-5.40 [facility] Comment on above: Performed By: #### C BC ####[facility] [address] [address]DrPasquale Valenzuela WBC 11.1 103/ul Critically high 4.0-11.0 [facility] Comment on above: Performed By: #### C BC ####[facility] [address] [address]DrPasquale Valenzuela GLYCOHEMOGLOBIN A1Con 2022 ADA RECOMMENDATION SEE BELOW Normal [facility] Comment on above: Result Comment: ADA RECOMMENDED LIMIT 4.0 - 6.0 ADA THERAPEUTIC TARGET < 7.0 ACTION SUGGESTED > 7.0 Performed By: #### A 1C ####[facility] [address] [address]DrPasquale Valenzuela Glucose [Mass/Vol] 160 mg/dL Normal The [facility] Comment on above: Performed By: #### A 1C ####[facility] [address] [place], [place] [address]DrPasquale Valenzuela HbA1c (Bld) [Mass fraction] 7.2 % Critically high 4.5-6.2 [facility] Comment on above: Performed By: #### A 1C ####[facility] [address] [address]Dr. Ricky Valenzuela MICROALBUMIN, RAND URon mALB <1.3 Normal <=30.0 [facility] Comment on above: Performed By: #### M ALBR #### [facility] [address] [address] [address] Ricky Valenzuela PROF 14(COMP METB)on 023 Albumin [Mass/Vol] 3.3 g/dL Critically low 3.4-5.0 [facility] Comment on above: Performed By: #### C MP #### [facility] [address] [address] [address] Ricky Valenzuela Albumin/Globulin [Mass ratio] 0.9 {ratio} Normal [facility] Comment on above: Performed By: #### C MP #### [facility] [address] [place] [address] Dr. Ricky Valenzuela ALP [Catalytic activity/Vol] 90 U/L Normal 46-116 [facility] Comment on above: Performed By: #### C MP #### [facility] [address] [place] [address] Dr. Ricky Valenzuela ALT [Catalytic activity/Vol] 42 U/L Normal 14-59 [facility] Comment on above: Performed By: #### C MP #### [facility] [address] [place] [address] Dr. Ricky Valenzuela Anion gap [Moles/Vol] 10.1 mmol/L Normal [facility] Comment on above: Performed By: #### C MP #### [facility] [address] [place] [address] Dr. Ricky Valenzuela AST [Catalytic activity/Vol] 21 U/L Normal 15-37 [facility] Comment on above: Performed By: #### C MP #### [facility] [address] [place] [address] Dr. Ricky Valenzuela Bilirubin [Mass/Vol] 0.3 mg/dL Normal 0.2-1.0 [facility] Comment on above: Performed By: #### C MP #### [facility] [address] [place] [address] Dr. Ricky Valenzuela Calcium [Mass/Vol] 9.8 mg/dL Normal 8.5-10.1 [facility] Comment on above: Performed By: #### C MP #### [facility] [address] [place] [address] Dr. Ricky Valenzuela Chloride [Moles/Vol] 99 mmol/L Normal 98-107 [facility] Comment on above: Performed By: #### C MP #### [facility] [address] [place] [address] Dr. Ricky Valenzuela CO2 [Moles/Vol] 33.7 mmol/L Critically high 21.0-32.0 [facility] Comment on above: Performed By: #### C MP #### [facility] [address] [address] [address] Ricky Valenzuela Creatinine [Mass/Vol] 0.94 mg/dL Normal 0.55-1.02 [facility] Comment on above: Performed By: #### C MP #### [facility] [address] [place] [address] Dr. Ricky Valenzuela EGFR-AF VIETNAMESE >60 Normal >=60 [facility] Comment on above: Performed By: #### C MP #### [facility] [address] [address] [address] Ricky Valenzuela EGFR-NON AF VIETNAMESE >60 Normal >=60 [facility] Comment on above: Performed By: #### C MP #### [facility] [address] [place] [address] Dr. Ricky Valenzuela Globulin (S) [Mass/Vol] 3.8 g/dL Normal [facility] Comment on above: Performed By: #### C MP #### [facility] [address] [place] [address] Dr. Ricky Valenzuela Glucose [Mass/Vol] 168 mg/dL Critically high 74-106 [facility] Comment on above: Performed By: #### C MP #### [facility] [address] [place] [address] Dr. Ricky Valenzuela Potassium [Moles/Vol] 4.8 mmol/L Normal 3.5-5.1 [facility] Comment on above: Performed By: #### C MP #### [facility] [address] [place] [address] Dr. Ricky Valenzuela Protein [Mass/Vol] 7.1 g/dL Normal 6.4-8.2 The [facility] Comment on above: Performed By: #### C MP #### [facility] [address] [place] [address] Dr. Ricky Valenzuela Sodium [Moles/Vol] 138 mmol/L Normal 136-145 [facility] Comment on above: Performed By: #### C MP #### [facility] [address] [place] [address] Dr. Ricky Valenzuela Urea nitrogen [Mass/Vol] 22.0 mg/dL Critically high 7.0-18.0 [facility] Comment on above: Performed By: #### C MP #### [facility] [address] [address] [address] Ricky Valenzuela Urea nitrogen/Creatinine [Mass ratio] 23.4 mg/mg Normal [facility] Comment on above: Performed By: #### C MP #### [facility] [address] [address] [address] Ricky Valenzuela Cytologyon 08-30-2021 Cytology (NOTE) INTERPRETATION Vaginal material, (ThinPrep vial, Imaging-assisted review): Specimen Adequacy: Satisfactory for evaluation. Descriptive Diagnosis: Negative for intraepithelial lesion or malignancy. Aeronautical Engineering Technologist: CLARK Delacruz(ASCP) Electronically Signed Out /09/07/2021 Source: A: Vaginal material, (ThinPrep vial, Imaging-assisted review) Clinical History Hysterectomy Surgery: Salpingostomy; Ovary removal Z12.4 Encounter for screening for malignant neoplasm of cervix GYNECOLOGIC CYTOLOGY REPORT Patient Name: KARINA DE OLIVEIRA [facility] Rec: [id number] Path Number: [id number] [facility] ANATOMIC PATHOLOGY [address] [place] [id number] [facility] Comment on above: Performed By: #### P PPVP #### [address] [id number] Hybrid Car Mechanic: Luca Cummins MD CBC AUTO DIFFon 08-09-2021 BASO # 0.1 103/ul Normal 0.0-0.1 [facility] Comment on above: Performed By: #### C BC #### [facility] [address] [address] [address] Ricky Valenzuela Basophils/100 WBC (Bld) 0.8 % Normal 0.2-2.0 [facility] Comment on above: Performed By: #### C BC #### [facility] [address] [address] [address] Ricky Valenzuela EO # 0.2 103/ul Normal 0.0-0.7 [facility] Comment on above: Performed By: #### C BC #### [facility] [address] [place] [address] Dr. Ricky Valenzuela Eosinophils/100 WBC (Bld) 2.1 % Normal 0.9-7.0 [facility] Comment on above: Performed By: #### C BC #### [facility] [address] [place] [address] Dr. Ricky Valenzuela Erythrocyte distribution width (RBC) [Ratio] 15.2 % Critically high 11.0-15.0 [facility] Comment on above: Performed By: #### C BC #### [facility] [address] [place] [address] Dr. Ricky Valenzuela Hematocrit (Bld) [Volume fraction] 41.5 % Normal 36.0-48.0 [facility] Comment on above: Performed By: #### C BC #### [facility] [address] [place] [address] Dr. Ricky Valenzuela Hemoglobin (Bld) [Mass/Vol] 13.5 g/dL Normal 12.0-16.0 [facility] Comment on above: Performed By: #### C BC #### [facility] [address] [place] [address] Dr. Ricky Valenzuela IG # 0.42 10e3/ul Critically high 0.00-0.03 [facility] Comment on above: Performed By: #### C BC #### [facility] [address] [place] [address] Dr. Ricky Valenzuela IG % 3.8 % Critically high 0.0-0.5 [facility] Comment on above: Performed By: #### C BC #### [facility] [address] [place] [address] Dr. Ricky Valenzuela LYMPH # 3.3 103/ul Normal 1.2-3.8 [facility] Comment on above: Performed By: #### C BC #### [facility] [address] [place] [address] Dr. Ricky Valenzuela Lymphocytes/100 WBC (Bld) 29.1 % Normal 20.5-60.0 [facility] Comment on above: Performed By: #### C BC #### [facility] [address] [place] [address] Dr. Ricky Valenzuela MANUAL DIFF REQ NO Normal [facility] Comment on above: Performed By: #### C BC #### [facility] [address] [place] [address] Dr. Ricky Valenzuela MCH (RBC) [Entitic mass] 32.4 pg Normal 26.7-34.0 [facility] Comment on above: Performed By: #### C BC #### [facility] [address] [place] [address] Dr. iRcky Valenzuela MCHC (RBC) [Mass/Vol] 32.5 g/dL Normal 29.9-35.2 [facility] Comment on above: Performed By: #### C BC #### [facility] [address] [place] [address] Dr. Ricky Valenzuela MCV (RBC) [Entitic vol] 99.5 fL Critically high 81.0-99.0 [facility] Comment on above: Performed By: #### C BC #### [facility] [address] [place] [address] Dr. Ricky Vlaenzuela MONO # 0.8 103/ul Normal 0.3-0.8 [facility] Comment on above: Performed By: #### C BC #### [facility] [address] [place] [address] Dr. Ricky Valenzuela Monocytes/100 WBC (Bld) 7.5 % Normal 1.7-12.0 [facility] Comment on above: Performed By: #### C BC #### [facility] [address] [place] [address] Dr. Ricky Valenzuela NEUT # 6.3 103/ul Normal 1.4-6.5 [facility] Comment on above: Performed By: #### C BC #### [facility] [address] [place] [address] Dr. Ricky Valenzuela Neutrophils/100 WBC (Bld) 56.7 % Normal 43.0-75.0 [facility] Comment on above: Performed By: #### C BC #### [facility] [address] [address] [address] Ricky Valenzuela Platelet mean volume (Bld) [Entitic vol] 9.8 fL Normal 9.5-13.5 [facility] Comment on above: Performed By: #### C BC #### [facility] [address] [address] [address] Ricky Valenzuela PLT 265 103/ul Normal 150-450 [facility] Comment on above: Performed By: #### C BC #### [facility] [address] [address] [address] Ricky Valenzuela RBC 4.17 106/ul Critically low 4.20-5.40 [facility] Comment on above: Performed By: #### C BC #### [facility] [address] [address] [address] Ricky Valenzuela WBC 11.2 103/ul Critically high 4.0-11.0 [facility] Comment on above: Performed By: #### C BC #### [facility] [address] [address] [address] Ricky Valenzuela GLYCOHEMOGLOBIN A1Con 2021 ADA RECOMMENDATION SEE BELOW Normal [facility] Comment on above: Result Comment: ADA RECOMMENDED LIMIT 4.0 - 6.0 ADA THERAPEUTIC TARGET < 7.0 ACTION SUGGESTED > 7.0 Performed By: #### A 1C ####[facility] [address] [id number]. Ricky Valenzuela Glucose [Mass/Vol] 183 mg/dL Normal [facility] Comment on above: Performed By: #### A 1C ####[facility] [address] [place], [place] [address]KwDr. Ricky Valenzuela HbA1c (Bld) [Mass fraction] 8.0 % Critically high 4.5-6.2 [facility] Comment on above: Performed By: #### A 1C ####[facility] [address] [id number]. Ricky Valenzuela LIPID PROFILEon 08-09-2021 CHOL-HDL RATIO NORM SEE BELOW Normal [facility] Comment on above: Result Comment: 3.3 - 4.4 LOW RISK 4.4 - 7.1 AVERAGE RISK 7.1 - 11.0 MODERATE RISK >11.0 HIGH RISK Performed By: #### C MP, LIPID #### [facility] [address] [address] [address] Ricky Valenzuela Cholesterol [Mass/Vol] 239 mg/dL Critically high <=200 [facility] Comment on above: Performed By: #### C MP, LIPID #### [facility] [address] [address] [address] Ricky Valenzuela Cholesterol in HDL [Mass/Vol] 36 mg/dL Critically low 40-60 [facility] Comment on above: Performed By: #### C MP, LIPID #### [facility] [address] [address] [address] Ricky Valenzuela Cholesterol in LDL [Mass/Vol] 164.2 mg/dL Normal [facility] Comment on above: Performed By: #### C MP, LIPID #### [facility] [address] [address] [address] Ricky Valenzuela Cholesterol.total/Ch olesterol in HDL [Mass ratio] 6.6 {ratio} Normal [facility] Comment on above: Performed By: #### C MP, LIPID #### [facility] [address] [address] [address] Ricky Valenzuela HDL NORMAL > or = 60 mg/dl - LOW CARDIOVASCULAR RISK <40 mg/dl - HIGH CARDIOVASCULAR RISK Normal [facility] Comment on above: Performed By: #### C MP, LIPID #### [facility] [address] [address] [address] Ricky Valenzuela LDL CALC NORMAL SEE BELOW Normal [facility] Comment on above: Result Comment: <100 mg/dl OPTIMAL 100 - 129 mg/dl NEAR OR ABOVE OPTIMAL 130 - 159 mg/dl BORDERLINE HIGH 160 - 189 mg/dl HIGH >190 mg/dl VERY HIGH Performed By: #### C MP, LIPID #### [facility] [address] [address] [address] Ricky Valenzuela Triglyceride [Mass/Vol] 194 mg/dL Critically high <=150 [facility] Comment on above: Performed By: #### C MP, LIPID #### [facility] [address] [address] [address] Ricky Valenzuela VLDL CALC 38.8 mg/dL Normal [facility] Comment on above: Performed By: #### C MP, LIPID #### [facility] [id number] Ricky Valenzuela MICROALBUMIN, RAND URon 07-13 mALB 13.1 mg/L Normal <=30.0 [facility] Comment on above: Performed By: #### M ALBR ####[facility] [address] [address]Dr. Ricky Valenzuela PROF 14(COMP METB)on 022 Albumin [Mass/Vol] 3.3 g/dL Critically low 3.4-5.0 [facility] Comment on above: Performed By: #### C MP, LIPID #### [facility] [address] [place] [address] Dr. Ricky Valenzuela Albumin/Globulin [Mass ratio] 0.8 {ratio} Normal [facility] Comment on above: Performed By: #### C MP, LIPID #### [facility] [address] [place] [address] Dr. Ricky Valenzuela ALP [Catalytic activity/Vol] 93 U/L Normal 46-116 [facility] Comment on above: Performed By: #### C MP, LIPID #### [facility] [address] [place] [address] Dr. Ricky Valenzuela ALT [Catalytic activity/Vol] 37 U/L Normal 14-59 [facility] Comment on above: Performed By: #### C MP, LIPID #### [facility] [address] [place] [address] Dr. Ricky Valenzuela Anion gap [Moles/Vol] 10.9 mmol/L Normal [facility] Comment on above: Performed By: #### C MP, LIPID #### [facility] [address] [place] [address] Dr. Ricky Valenzuela AST [Catalytic activity/Vol] 10 U/L Critically low 15-37 [facility] Comment on above: Performed By: #### C MP, LIPID #### [facility] [address] [place] [address] Dr. Ricky Valenzuela Bilirubin [Mass/Vol] 0.2 mg/dL Normal 0.2-1.0 [facility] Comment on above: Performed By: #### C MP, LIPID #### [facility] [address] [place] [address] Dr. Ricky Valenzuela Calcium [Mass/Vol] 9.0 mg/dL Normal 8.5-10.1 [facility] Comment on above: Performed By: #### C MP, LIPID #### [facility] [address] [place] [address] Dr. Ricky Valenzuela Chloride [Moles/Vol] 100 mmol/L Normal 98-107 [facility] Comment on above: Performed By: #### C MP, LIPID #### [facility] [address] [place] [address] Dr. Ricky Valenzuela CO2 [Moles/Vol] 32.2 mmol/L Critically high 21.0-32.0 [facility] Comment on above: Performed By: #### C MP, LIPID #### [facility] [address] [place] [address] Dr. Ricky Valenzuela Creatinine [Mass/Vol] 0.95 mg/dL Normal 0.55-1.02 [facility] Comment on above: Performed By: #### C MP, LIPID #### [facility] [address] [place] [address] Dr. Ricky Valenzuela EGFR-AF VIETNAMESE >60 Normal >=60 [facility] Comment on above: Performed By: #### C MP, LIPID #### [facility] [address] [place] [address] Dr. Ricky Valenzuela EGFR-NON AF VIETNAMESE >60 Normal >=60 [facility] Comment on above: Performed By: #### C MP, LIPID #### [facility] [address] [place] [address] Dr. Ricky Valenzuela Globulin (S) [Mass/Vol] 4.2 g/dL Normal [facility] Comment on above: Performed By: #### C MP, LIPID #### [facility] [address] [place] [address] Dr. Ricky Valenzuela Glucose [Mass/Vol] 200 mg/dL Critically high 74-106 [facility] Comment on above: Performed By: #### C MP, LIPID #### [facility] [address] [place] [address] Dr. Ricky Valenzuela Potassium [Moles/Vol] 4.1 mmol/L Normal 3.5-5.1 [facility] Comment on above: Performed By: #### C MP, LIPID #### [facility] [address] [place] [address] Dr. Ricky Valenzuela Protein [Mass/Vol] 7.5 g/dL Normal 6.4-8.2 [facility] Comment on above: Performed By: #### C MP, LIPID #### [facility] [address] [place] [address] Dr. Ricky Valenzuela Sodium [Moles/Vol] 139 mmol/L Normal 136-145 [facility] Comment on above: Performed By: #### C MP, LIPID #### [facility] [address] [place] [address] Dr. Ricky Valenzuela Urea nitrogen [Mass/Vol] 13.0 mg/dL Normal 7.0-18.0 [facility] Comment on above: Performed By: #### C MP, LIPID #### [facility] [address] [place] [address] Dr. Ricky Valenzuela Urea nitrogen/Creatinine [Mass ratio] 13.7 mg/mg Normal [facility] Comment on above: Performed By: #### C MP, LIPID #### [facility] [address] [place] [address] Dr. Ricky Valenzuela POINT OF CARE GLUCOSEon 06-12 Glucose [Mass/Vol] 176 mg/dL Critically high 74-106 [facility] Comment on above: Performed By: #### P OCGLUC #### [facility] [address] [place] [address] Dr. Ricky Valenzuela Vital Signs Date Time Vital Sign Value Performing Clinician Facility 12-31-2023 10:06-0500 Body height 157.5 cm Sivan Solo DO Work Phone: [facility] 12-31-2023 10:06-0500 Body mass index (BMI) [Ratio] 39.14 kg/m2 Sivan Solo DO Work Phone: [facility] 12-31-2023 10:06-0500 Body weight 97.07 kg Sivan Solo DO Work Phone: [facility] 12-31-2023 10:06-0500 Diastolic blood pressure 72 mm[Hg] Sivan Solo DO Work Phone: [facility] 12-31-2023 10:06-0500 Heart rate 95 /min Sivan Solo DO Work Phone: [facility] 12-31-2023 10:06-0500 SaO2% (BldA) [Mass fraction] 97 % Sivan Solo DO Work Phone: [facility] 12-31-2023 10:06-0500 Systolic blood pressure 118 mm[Hg] Sivan Solo DO Work Phone: [facility] 12-30-2023 10:46-0500 Body mass index (BMI) [Ratio] 40.06 kg/m2 Sonam Drake [employer]END[employer] Work Phone: [facility] 12-30-2023 10:46-0500 Body weight 99.34 kg Sonam Drake [employer] ATTEND[employer] Work Phone: [facility] 12-30-2023 10:46-0500 Diastolic blood pressure 74 mm[Hg] Sonam Drake [employer] ATTENDANT Work Phone: [facility] 12-30-2023 10:46-0500 Heart rate 97 /min Sonam Drake [employer] ATTENDANT Work Phone: [facility] 12-30-2023 10:46-0500 SaO2% (BldA) [Mass fraction] 98 % Sonam Drake [employer] ATTEND[employer] Work Phone: [facility] 12-30-2023 10:46-0500 Systolic blood pressure 98 mm[Hg] Sonam Drake [employer] ATTENDANT Work Phone: [facility] 10-03-2023 10:07-0400 Body height 157.5 cm Sonam Drake [employer] ATTENDANT Work Phone: [facility] 10-03-2023 10:07-0400 Body mass index (BMI) [Ratio] 39.32 kg/m2 Sonam Drake [employer] ATTENDANT Work Phone: [facility] 10-03-2023 10:07-0400 Body temperature 97.5 [degF] Sonam Drake [employer] ATTENDANT Work Phone: [facility] 10-03-2023 10:07-0400 Body weight 97.52 kg Sonam Drake [employer] ATTENDANT Work Phone: [facility] 10-03-2023 10:07-0400 Diastolic blood pressure 70 mm[Hg] Sonam Drake [employer] ATTENDANT Work Phone: [facility] 10-03-2023 10:07-0400 Heart rate 107 /min Sonam Drake [employer] ATTENDANT Work Phone: [facility] Comment on above: 97% O2 10-03-2023 10:07-0400 Systolic blood pressure 90 mm[Hg] Sonam Drake [employer] ATTENDANT Work Phone: [facility] 01-18-2023 09:10-0500 Body height 156.21 cm Elle Hendricks Other [employer] Other 01-18-2023 09:10-0500 Body mass index (BMI) [Ratio] 42.82 kg/m2 Elle Hendricks Other [employer] Other 01-18-2023 09:10-0500 Body temperature 98.2 [degF] Elle Hendricks Other [employer] Other 01-18-2023 09:10-0500 Body weight 104.51 kg Elle Hendricks Other [employer] Other 01-18-2023 09:10-0500 Diastolic blood pressure 92 mm[Hg] Elle Hendricks Other [employer] Other 01-18-2023 09:10-0500 Respiratory rate 18 /min Elle Hendricks Other [employer] Other 01-18-2023 09:10-0500 SaO2% (BldA) [Mass fraction] 97 % Elle Hendricks Other [employer] Other 01-18-2023 09:10-0500 Systolic blood pressure 145 mm[Hg] Elle Hendricks Other [employer] Other Encounters Encounter Date Encounter Type Care Provider Facility Start: 01-30-2024 End: 01-30-2024 Refill Jolly Castaneda MA [facility] Comment on above: Lumbar back pain (Pr imary Dx); Type 2 diabetes mellitus with diabetic microalbuminuria, without long-term current use of insulin ([facility]) Start: 01-14-2024 End: 01-14-2024 Refill Jolly Castaneda MA [facility] Comment on above: Lumbar back pain Start: 12-31-2023 End: 12-31-2023 Clinisync Result Encounter Sonam Drake [employer] ATTENDANT Work Phone: [facility] Unsolicited Start: 12-31-2023 End: 12-31-2023 Clinisync Result Encounter Sonam Drake [employer] ATTEND[employer] Work Phone: [facility] Unsolicited Start: 12-31-2023 End: 12-31-2023 Office consultation new/estab patient 60 min Sivan Villegas DO Work Phone: [facility] [address] Comment on above: JANETT (obstructive sle ep apnea) (Primary Dx); Hypersomnia; Snoring; Primary insomnia; Tobacco abuse Start: 12-31-2023 End: 12-31-2023 ambulatory SIVAN VILLEGAS Not Available Start: 12-30-2023 End: 12-30-2023 Bamboo flowsheet Sonam Drake [employer] ATTENDANT Work Phone: [facility] Start: 12-30-2023 End: 12-30-2023 Bamboo flowsheet Sonam Drake [employer] ATTENDANT Work Phone: [facility] Start: 12-30-2023 End: 12-30-2023 Office outpatient visit 15 minutes Sonam Valenciatrick [employer] ATTENDANT Work Phone: [facility] Comment on above: Type 2 diabetes cory itus with diabetic microalbuminuria, without long-term current use of insulin ([facility]) (Primary Dx); Essential hypertension; Other hyperlipidemia ([facility]); Snoring; Mixed urge and stress incontinence Start: 12-30-2023 End: 12-30-2023 ambulatory SONAM DRAKE Not Available Start: 12-17-2023 End: 12-17-2023 Refill Jolly Castaneda MA [facility] Comment on above: Migraine with aura a nd without status migrainosus, not intractable (CMS/HCC); Diabetic polyneuropathy associated with type 2 diabetes mellitus (CMS/HCC) Start: 12-17-2023 End: 12-18-2023 Refill Sonam Drake [employer] ATTEND[employer] Work Phone: [facility] Comment on above: Gout, unspecified ca use, unspecified chronicity, unspecified site Start: 11-04-2023 End: 11-04-2023 Refill Stiven Omalley MA [facility] Comment on above: Gout, unspecified ca use, unspecified chronicity, unspecified site Start: 11-01-2023 End: 11-02-2023 Refill Stiven Omalley MA [facility] Comment on above: Diabetic polyneuropa thy associated with type 2 diabetes mellitus (CMS/HCC) Start: 10-04-2023 ambulatory Facility:[facility] Start: 10-03-2023 End: 10-03-2023 Bamboo flowsheet Sonam Drake [employer] RO[employer] ATTENDANT Work Phone: [facility] Start: 10-03-2023 End: 10-03-2023 Bamboo flowsheet Sonam Drake [employer] RO[employer] ATTENDANT Work Phone: [facility] Start: 10-03-2023 End: 10-03-2023 ambulatory SONAM DRAKE Not Available Start: 10-03-2023 End: 10-03-2023 Office outpatient visit 25 minutes Sonam Valenciatrick [employer] ATTENDANT Work Phone: [facility] Comment on above: Essential hypertensi on (Primary Dx); Type 2 diabetes mellitus with diabetic microalbuminuria, without long-term current use of insulin (CMS/HCC); Morbid (severe) obesity due to excess calories (E66.01); Other hyperlipidemia (CMS/HCC); Lumbar back pain; Type 2 diabetes mellitus without complication, without long-term current use of insulin (CMS/HCC); Diabetic polyneuropathy associated with type 2 diabetes mellitus (CMS/HCC); Mixed urge and stress incontinence; Snoring Start: 08-22-2023 End: 08-22-2023 ambulatory CRISTINA FAWWAD Not Available Start: 08-05-2023 End: 08-05-2023 ambulatory CRISTINA FAWWAD Not Available Start: 07-04-2023 End: 07-04-2023 ambulatory CRISTINA FAWWAD Not Available Start: 05-02-2023 End: 05-02-2023 ambulatory CRISTINA FAWWAD Not Available Start: 04-30-2023 End: 04-30-2023 ambulatory [facility] Work Phone: Start: 04-30-2023 End: 04-30-2023 Patient encounter procedure [facility] Work Phone: Start: 03-21-2023 Orders Only Shaikh Maricel HOLLIS Work Phone: [facility] Comment on above: Diabetic polyneuropa thy associated with type 2 diabetes mellitus (CMS/HCC) (Primary Dx) Start: 03-19-2023 End: 03-19-2023 ambulatory Ana Luisa Calvey Other [employer] Other Start: 03-19-2023 Office outpatient vi sit 15 minutes Ana Luisa Calvey [facility] Start: 02-25-2023 End: 02-25-2023 ambulatory ALICIA Adelita GARCIA Not Available Start: 01-29-2023 End: 01-29-2023 ambulatory SHAIKH MARICEL Not Available Start: 01-23-2023 End: 01-23-2023 ambulatory Ana Luisa Calvey Other [employer] Other Start: 01-23-2023 Office outpatient vi sit 15 minutes Ana Luisa Calvey [facility] Start: 01-18-2023 End: 01-18-2023 ambulatory Ellesasha Hendricks Other [employer] Other Start: 01-18-2023 Office outpatient vi sit 15 minutes Elle Ruthie [facility] Start: 09-19-2022 End: 09-19-2022 ambulatory Ana Luisa Calvey Other [employer] Other Start: 09-19-2022 Telephone encounter Ana Luisa Curtis [facility] Start: 07-12-[address] JONATHAN EDWARDS Facili ty:[facility] Start: 06-07-2022 End: 06-08-[address] JONATHAN EDWARDS Facility:[facility] Start: 05-02-2022 End: 05-02-2022 ambulatory Ana Luisa Calvey Other [employer] Other Start: 05-02-2022 Office outpatient ne w 30 minutes Ana Luisa Calvey [facility] Start: 04-12-2022 End: 04-13-[address] JONATHAN EDWARDS Facility:[facility] Start: 03-08-2022 End: 03-09-[address] JONATHAN EDWARDS Facility:[facility] Start: 02-16-2022 End: 02-17-[address] JONATHAN EDWARDS Facility:[facility] Start: 02-09-2022 End: 02-10-[address] RICARDO HOLM . Facility:[facility] Start: 11-16-2021 End: 11-17-[address] JONATHAN EDWARDS Facility:[facility] Start: 11-01-2021 End: 11-02-2021 ambulatory CRYS PIERCE . Facility:[facility] Start: 08-30-2021 End: 08-31-2021 [facility] Start: 08-30-2021 End: 08-30-2021 Subsequent hospital visit by physician Sr Grace INGRAM Work Phone: [facility] Comment on above: Routine cervical sme ar Start: 08-16-2021 Encounter for genera l adult medical examination without abnormal findings DR RICARDO HOLM . [facility] Start: 08-09-2021 End: 08-10-2021 Encounter for [...] ALL CBC WITH AUTO DIFF Sonam Drake [employer] RO[employer] ATTENDANT Work Phone: Start: 03-20-2023 Mammography Shaikh Marie calero MD Work Phone: Start: 08-30-2021 Microscopic observat ion [Identifier] in Cervix by Cyto stain Sr House DO Work Phone: Plan of Treatment Date Care Activity Detail Author Start: 03-28-2026 Screening for malign ant neoplasm of colon [facility] Start: 03-08-2026 Screening for malign ant neoplasm of colon [facility] Start: 12-30-2024 Urine screening for protein Diabetes: Urine Protein Screening [facility] Start: 08-30-2024 Screening for malign ant neoplasm of cervix [facility] Start: 07-26-2024 Urine screening for protein Diabetes: Urine Protein Screening [facility] Start: 03-26-2024 End: 03-26-2024 Patient encounter procedure 03/26/2024 2:00 PM EST [facility] [address] [place] [id number] Sonam Drake NP [address] [place] [address] [facility] Start: 03-24-2024 End: 03-24-2024 Patient encounter procedure 03/24/2024 4:00 PM EST Office Visit [facility] [address] [place] [phone] Za Wilkerson [employer] RO[employer] ATTENDANT [address] [place] [address] [facility] [address] Start: 03-20-2024 Screening for malign ant neoplasm of breast Mammogram [facility] Start: 02-27-2024 End: 02-27-2024 Patient encounter procedure 02/27/2024 11:35 AM EST Office Visit [facility] [address] [place] [address] Alicia Garcia MD [address] [place] [address] [facility] Start: 02-25-2024 End: 02-25-2024 Patient encounter procedure 02/25/2024 3:30 PM EST [facility] [address] [place] [phone] Sonam Drake, RONALDO [address] [place] [address] [facility] Start: 02-12-2024 Glaucoma screening Diabetes: R etinopathy Screening [facility] Start: 01-25-2024 Hemoglobin A1c measurement Diabetes: Hemoglobin A1C [facility] Start: 12-31-2023 End: 12-30-2024 Polysomnography [facility] Routine JANETT (obstructive sleep apnea) Expected: 12/31/2023 (Approximate), Expires: 12/30/2024 [facility] Work Phone: Comment on above: Expected: 12/31/2023 (Approximate), Expires: 12/30/2024 Start: 12-31-2023 End: 12-31-2023 Patient encounter procedure 12/31/2023 10:00 AM EST Office Visit [facility] [address] [place] [address] Sivan Villegas, DO [address] [place], [place] [id number] [facility] [address] Start: 12-30-2023 End: 12-29-2024 CBC W Auto Differential panel - Blood CBC and differential Lab Routine Type 2 diabetes mellitus with diabetic microalbuminuria, without long-term current use of insulin ([facility]/HCC) Essential hypertension Expected: 12/30/2023 (Approximate), Expires: 12/29/2024 [facility] Comment on above: Expected: 12/30/2023 (Approximate), Expires: 12/29/2024 Start: 12-30-2023 End: 12-29-2024 Comprehensive metabolic 2000 panel - Serum or Plasma Comprehensive metabolic panel Lab Routine Type 2 diabetes mellitus with diabetic microalbuminuria, without long-term current use of insulin (CMS/HCC) Essential hypertension Expected: 12/30/2023 (Approximate), Expires: 12/29/2024 [facility] Comment on above: Expected: 12/30/2023 (Approximate), Expires: 12/29/2024 Start: 12-30-2023 End: 12-29-2024 Hemoglobin A1c/Hemoglobin.total in Blood Hemoglobin A1c Lab Routine Type 2 diabetes mellitus with diabetic microalbuminuria, without long-term current use of insulin ([facility]) Expected: 12/30/2023 (Approximate), Expires: 12/29/2024 [facility] Comment on above: Expected: 12/30/2023 (Approximate), Expires: 12/29/2024 Start: 12-30-2023 End: 12-30-2023 Patient encounter procedure 12/30/2023 10:30 AM EST Office Visit [facility] [address] [place] [phone] Sonam Drake NP [address] [place] [address] [facility] [facility] Start: 11-04-2023 End: 11-04-2023 Patient encounter procedure 11/04/2023 2:30 PM EDT Office Visit [facility] [address] [place] [phone] Sivan Villegas DO [address] [place], [place] [id number] [facility] Start: 10-13-2023 Influenza vaccination Influenza Vacc ine (#1) [facility] Start: 08-11-2023 Influenza vaccination Influenza Vacc ine (#1) [facility] Comment on above: Postponed from 10/12 (Patient Refused) Start: 05-02-2023 End: 05-02-2023 Patient encounter procedure 05/02/2023 2:00 PM EDT Office Visit [facility] [address] [place] [phone] Shaikh Connelly MD [address] [place] [phone] [facility] Start: 02-17-2023 Hemoglobin A1c measurement Diabetes: Hemoglobin A1C [facility] Start: 09-04-2022 End: 09-04-2022 Patient encounter procedure 09/04/2022 Office Visit Obstetrics and Gynecology Radha Barclay, MIXER OPERATOR TABLETS - CNM [address] [facility] [address] [place] [id number] [facility] OBST[facility] & [facility]YNECOLOGY [facility] of [facility] Start: 10-12-2021 Influenza vaccination Flu vaccine [...] [facility] Start: 2003 Lipid panel Lipids [facility] Start: 10-21-1998 Diabetes screen Diabetes screen [facility] Start: 10-21-1993 Screening for malign ant neoplasm of cervix [facility] Start: 10-21-1982 DTaP/Tdap/Td vaccine (1 - Tdap) DTaP/Tdap/Td vaccine (1 - Tdap) [facility] Start: 10-21-1982 Urine screening for protein Diabetes: Urine Protein Screening [facility] Start: 10-21-1981 Hepatitis C screening Hepatitis C sc reen [facility] Start: 10-21-1978 HIV screening HIV screen [facility] Start: 1975 Depression Screen Depression Screen [facility] [...] microalbuminuria, without long-term current use of insulin ([facility]) Essential hypertension Ordered: 12/30/2023 [facility] Work Phone: Comment on above: Ordered: 12/30/2023 Immunizations Immunization Date Immunization Notes Care Provider Tima garcia 01-14-2017 influenza, injectabl e, quadrivalent, preservative [facility] 01-14-2017 influenza virus vaccine, unspecified formulation Sonam Drake RUG DRY ROOM ATTENDANT Work Phone: [facility] Healthcare Payers Date Payer Category Payer Private Health Insurance [facility] [id number] 2022 Unknown [id number]. [id number] 2012 Medicare [id number] 1.13.693. 2.7.3.670088.315 1963 Unknown [id number] 2.16.840.1.192855.3.579. 2.173 1963 Unknown [id number] 2.16.840.1.663591.3.579. 2.593 1963 Unknown [id number] 2.16.840.1.018632.3.579. 2.593 1963 Unknown [id number] 2.16.840.1.118871.3.579. 2.593 1963 Unknown [id number] 2.16.840.1.550223.3.579. 2.593 1963 Unknown [id number] 2.16.840.1.613186.3.579. 2.593 1963 Unknown [id number] 2.16.840.1.718763.3.579. 2.593 1963 Unknown [id number] 2.16.840.1.097516.3.579. 2.593 1963 Unknown [id number] 2.16.840.1.415275.3.579. 2.593 1963 Unknown [id number] 2.16.840.1.628939.3.579. 2.593 1963 Unknown [id number] 2.16.840.1.577143.3.579. 2.593 1963 Unknown [id number] 2.16.840.1.534857.3.579. 2.593 1963 Unknown [id number] 2.16.840.1.105937.3.579. 2.593 1963 Unknown [id number] 2.16.840.1.330133.3.579. 2.593 1963 Unknown [id number] 2.16.840.1.210069.3.579. 2.593 1963 Unknown [id number] 2.16.840.1.787832.3.579. 2.593 1963 Unknown [id number] 2.16.840.1.598331.3.579. 2.593 1963 Unknown [id number] 2.16.840.1.590661.3.579. 2.1259 1963 Unknown [id number] 2.16.840.1.252322.3.579. 2.1259 1963 Unknown [id number] 2.16.840.1.190410.3.579. 2.9 1963 Unknown [id number] 2.16.840.1.640843.3.579. 2.1258 1963 Unknown [id number] 2.16.840.1.368093.3.579. 2.9 1963 Unknown [id number] 2.16.840.1.836786.3.579. 2.1258 1963 Unknown [id number] 2.16.840.1.543486.3.579. 2.9 1963 Unknown [id number] 2.16.840.1.990436.3.579. 2.1258 1963 Unknown [id number] 2.16.840.1.915893.3.579. 2.1259 1959 Medicare [id number] 1.2.840.371669.1.13.239. 2.7.3.350061.315 1959 Unknown [id number] 1.2.840.236936.1.13.239. 2.7.3.025513.315 1959 Unknown [id number] 2.16.840.1.669784.19 Medicare Medicare [id number] Self-pay Self Pay [id number] Social History Date Type Detail Facility Start: 08-30-2021 End: 12-31-2023 Tobacco smoking status RIIS Smokes tobacco daily [facility] Phone: History of tobacco use Cigarette Smoker [facility] Phone: Start: 08-30-2021 End: 12-31-2023 Tobacco use and exposure Smokeless tobacco non-user [facility] Phone: Start: 08-30-2021 Alcohol intake Current drinke r of alcohol (finding) [facility] Phone: Start: 08-30-2021 History SDOH Alcohol Comment occasional [facility] Phone: Start: 1965 Sex Assigned At Not on file [facility] Phone: Start: 08-20-2021 End: 08-30-2021 Exposure to SARS-CoV-2 (event) Not sure [facility] Start: 02-25-2023 End: 10-02-2023 Sex Assigned At [facility] Start: 01-29-2023 End: 08-05-2023 Tobacco smoking status RIIS Ex-smoker [facility] History of tobacco use Current smoker [facility] Start: 01-29-2023 End: 10-02-2023 Cigarettes smoked current (pack per day) - Reported 0.5 [facility] Start: 02-25-2023 End: 12-31-2023 Alcohol intake Lifetime non-drinker (finding) [facility] Start: 1965 Sex Assigned At Female F [facility] History of tobacco use Passive smoker [facility] [...] TO TEST BLOO D SUGAR TWICE DAILY [id number] Start: 06-08-2021 Clinical Notes 06-20-2021 to 01-30-2024 Telephone Encounter - Jolly Castaneda MA - 01/30/2024 10:38 AM ESTTelephone Encounter - Jolly Castaneda MA - 01/30/2024 10:38 AM ESTTelephone Encounter - Jolly Castaneda MA - 01/14/2024 8:34 AM EST Note Date & Type Note Facility 01-30-2024 Telephone encount er Note GIOVANNA:12/30/2023 NOV:03/26/2024 [facility] 01-30-2024 Miscellaneous Notes Formattin g of this note might be different from the original. GIOVANNA:12/30/2023 NOV:03/26/2024 documented in this encounter [facility] 01-14-2024 Telephone encount er Note GIOVANNA:12/30/2023 NOV:03/26/2023 [facility] 01-14-2024 Miscellaneous Notes Formattin g of this note might be different from the original. GIOVANNA:12/30/2023 NOV:03/26/2023 documented in this encounter [facility] 12-31-2023 History of Presen t illness Narrative Images from the original note were not included. No chief complaint on file. Subjective SLEEP CONSULT REFERRAL: Snoring, concern for JANETT, needing sleep study - labs @ [facility]; referral received from Sonam Drake CNP. [...] was counseled on the risks of stroke, HI, and sudden with JANETT, along with the [...] clinic: 2 months documented in this encounter [facility] 12-30-2023 History of Presen t illness [...] R ALBUMIN GLOBULIN RATIO 0.8 Resulting Agency [facility] DMII: Metformin Bid and Ozempic Most [...] First appointment tomorrow. documented in this encounter [facility] 12-30-2023 Instructions Sonam Drake NP - 12/30/2023 10:30 AM EST FASTING labs ordered. Nothing to eat or drink for 12 hours prior to blood draw. Water and black coffee ok. Call if you need anything! documented in this encounter [facility] 12-17-2023 Telephone encount er Note GIOVNANA:10/03/2023 NOV:12/30/2023 [facility] 12-17-2023 Miscellaneous Notes Formattin g of this note might be different from the original. GIOVANNA:10/03/2023 NOV:12/30/2023 documented in this encounter [facility] 10-03-2023 History of Presen t illness Narrative Associated Problem(s): Snoring Screening for JANETT- Referral sent to [facility] [place] Associated Problem(s): Morbid (severe) obesity due to excess calories (E66.01) Discussed with patient their BMI (actual, verses recommended). We have also discussed lifestyle modifications: attempts to perform physical activity as chronic conditions allow, also to monitor dietary intake: increasing protein/fruits/veggies and lowering carb intake (unless contraindicated). Limit sodas, juices, and sugary drinks. Also discussed oral medications that can be utilized for weight loss, as well as surgical options for weight loss. Associated Problem(s): Other hyperlipidemia (CMS/HCC) Crestor 20mg; Lipid panel looks good Denies myalgias; Continue Crsetor Associated Problem(s): Type 2 diabetes mellitus with diabetic microalbuminuria, without long-term current use of insulin (CMS/HCC) Metformin Bid and Ozempic Most recent labs: hemoglobin A1C 6.3% Average FSBS range from BGs range between 77 and 160 No episode of hypoglycemia No medication adverse [...] eye Exam; 01/2023; Is going in 01/2024 Diabetic foot exam: Left: Reflexes 2+ Vibratory sensation normal Proprioception normal Sharp/dull discrimination normal Filament test present Right: Reflexes 2+ Vibratory sensation normal Proprioception normal Sharp/dull discrimination normal Filament test present Associated Problem(s): Lumbar back pain Emerita. Percocet PRN Associated Problem(s): Mixed urge and stress incontinence Referral sent to urology. Images from the original note were not included. Subjective Patient ID: Karina De Oliveira is a 57 y.o. female who presents for Follow-up (3mo) and Urinary Frequency (C/o of nocturnal enuresis). HPI HTN: BP is low in office Not on any medication regimen. Continue to monitor closely. HLD: Crestor 20mg Denies myalgias Component Ref Range & Units 6 mo [...] R ALBUMIN GLOBULIN RATIO 0.8 Resulting Agency [facility] DMII: Metformin Bid and Ozempic Most recent labs: hemoglobin A1C 6.3% Average FSBS range from BGs range between 77 and 160 No episode of hypoglycemia No medication adverse [...] eye Exam; 01/2023; Is going in 01/2024 Diabetic foot exam: Left: Reflexes 2+ Vibratory sensation normal Proprioception normal Sharp/dull discrimination normal Filament test present Right: Reflexes 2+ Vibratory sensation normal Proprioception normal Sharp/dull discrimination normal Filament test present Lumbar Back Pain: Lyrica. Percocet PRN Frequent snoring Coughing in sleep, Daytime drowsiness Review of Systems Constitutional: Negative for activity change, appetite change, chills, diaphoresis, fatigue, fever and unexpected weight change. HENT: Negative for congestion, ear pain, rhinorrhea, sinus pressure, sinus pain, sneezing, sore throat, trouble swallowing and voice change. Eyes: Negative for visual disturbance. Respiratory: Negative for cough, chest tightness, shortness of breath and wheezing. Cardiovascular: Positive for leg swelling. Negative for chest pain and palpitations. Tibia and ankle fx LLE Gastrointestinal: Negative for abdominal distention, abdominal pain, [...] normal. Palpations: Abdomen is soft. Musculoskeletal: General: Signs of injury present. Normal range of motion. Cervical back: Normal range of motion. Left lower leg: Edema present. Skin: General: Skin is warm and dry. [...] without long-term current use of insulin (CMS/HCC) Metformin Bid and Ozempic Most recent labs: hemoglobin A1C 6.3% Average FSBS range from BGs range between 77 and 160 No episode of hypoglycemia No medication adverse [...] eye Exam; 01/2023; Is going in 01/2024 Diabetic foot exam: Left: Reflexes 2+ Vibratory sensation normal Proprioception normal Sharp/dull discrimination normal Filament test present Right: Reflexes 2+ Vibratory sensation normal Proprioception normal Sharp/dull discrimination normal Filament test present Relevant Medications semaglutide (Ozempic, 1 MG/DOSE,) 4 MG/3ML solution pen-injector Other hyperlipidemia (CMS/HCC) Crestor 20mg; Lipid panel looks good Denies myalgias; Continue Crsetor Relevant Medications rosuvastatin (Crestor) 20 MG tablet Essential hypertension - Primary (Chronic) Morbid (severe) obesity due to excess calories (E66.01) Discussed with patient their BMI (actual, verses recommended). We have also discussed lifestyle modifications: attempts to perform physical activity as chronic conditions allow, also to monitor dietary intake: increasing protein/fruits/veggies and lowering carb intake (unless contraindicated). Limit sodas, juices, and sugary drinks. Also discussed oral medications that can be utilized for weight loss, as well as surgical options for weight loss. Lumbar back pain Lyrica. Percocet PRN Mixed urge and stress incontinence Referral sent to urology. Relevant Orders Ambulatory referral to Urology Snoring Screening for JANETT- Referral sent to [facility] Other Visit Diagnoses Type 2 diabetes mellitus without complication, without long-term current use of insulin ([facility]) Relevant Medications semaglutide (Ozempic, 1 MG/DOSE,) 4 MG/3ML solution pen-injector Diabetic polyneuropathy associated with type 2 diabetes mellitus (CMS/[facility]) Relevant Medications pregabalin (Lyrica) 75 MG capsule documented in this encounter [facility] 10-03-2023 Instructions Sonam Drake NP - 10/03/2023 10:00 AM EDT Referral sent to Urology Dr. Villafuerte- they will call you. Education: Check blood sugars daily, notify if <70 or >200. Take medications (pills or insulin) as directed. Monitor for s/s of hypoglycemia (sweaty, dizziness, nausea, vomiting, or shakiness). Watch for increase in thirst, urination, or appetite. Inspect feet frequently monitoring for open wounds , and also recommend yearly eye exam. Pt should attempt to remain as physically active as chronic conditions allow, as well as trying to follow a diet low in carbohydrates, and simple sugars. Diet: Eat three meals per day. Breakfast, lunch, and dinner. Avoid snacking. Avoid eating after 5/6 pm. Daily protein GOAL 35% of your intake; 30g per meal. Daily calorie GOAL 1,800-2,000 per day. Consider tracking your food intake on MyFtinessPal or LoseIt Water: Increase water intake; GOAL 64-80oz of water per day. Exercise: Increase activity. GOAL 30 minutes, 5 days per week. START SLOW. Start with 5 minutes, 5 days per week. Then increase to 10 days, 5 days per week. Continue to increase until you reach the goal. Increase steps; GOAL 10,000 steps per day. Be sure to get adequate sleep; GOAL 6-8 hours of sleep per night. Call if you need anything! documented in this encounter [facility] 03-19-2023 Evaluation note Encounter Date Diagnosis [...] Mar, Left hand pain (ICD-10 - M79.642) [facility] Other 12-13-2023 Evaluation note* Encounter Date Diagnosis [...] noted. Patient will f/u in 4 weeks. [facility] Other 12-08-2023 Evaluation note* Encounter Date Diagnosis [...] left hand x-ray that was performed at [facility] which revealed degenerative changes in the hand as well as a remote avulsion fracture of the thumb. Patient states her family doctor is treating her for gout in her hand. Jan, History of gout (ICD-10 - Z87.39) Jan, Other Gout material w as printed [facility] Other 08-09-2023 Evaluation note* Encounter Date Diagnosis Assessment Notes Treatment Notes Treatment Clinical Notes Sep, Right wrist pain (ICD-10 - M25.531) [facility] Other 04-27-2023 NoteCONSULTATION CONSULTATION DATE: 06/07/2022 TO: [...] our patients to inform us about any xaob-eek-erqfaej medications or herbal remedies/nutritional supplements/alternative remedies. 2. [...] treatment options with their primary care provider.[id number] Evaluation note * Encounter Date Diagnosis Assessment [...] understanding and is agreeable to treatment plan. [facility] Other 01-26-2023 NoteCONSULTATION PROCEDURE DATE: 03/08/2022 PREOPERATIVE [...] will be followed up in the clinic.[facility] [id number] NotePROCEDURE: XR KNEE LT 4V or > [...] authenticated by: PATTIE SALTER Date: 2022-02-16 11:29[facility] [id number] NoteCONSULTATION CONSULTATION DATE: 02/09/2022 HISTORY OF PRESENT [...] office today. Patient agrees with this plan.[facility] [id number] NotePROCEDURE: XR WRIST RT MIN 3 V COMPARISON: None. HISTORY: Injury of right wrist FINDINGS: BONES:No acute fracture or dislocation. Corticated bone fragment identified along the first carpometacarpal joint [degenerative in nature SOFT TISSUES:Moderate diffuse soft tissue swelling EFFUSION:None visible. OTHER: Negative. IMPRESSION: Soft tissue swelling, no acute fracture Electronically authenticated by: RYAN GOLDMAN Date: 2021-11-16 18:59[facility] [id number] NoteCONSULTATION CONSULTATION DATE: 11/01/2021 HISTORY OF PRESENT [...] otherwise indicated. Patient agrees with this plan.[facility] [id number] NoteCONSULTATION PROCEDURE DATE: 11/01/2021 PRE AND POSTOPERATIVE [...] will be followed up in the clinic.[facility] [id number] NoteCONSULTATION PROCEDURE DATE: 08/09/2021 PREOPERATIVE DIAGNOSIS: Bilateral [...] will be followed up in the clinic. [facility] Signed and Approved by: CRYS PIERCE . 08/10/2021 13:37:00[facility]06-08-2022 NoteCONSULTATION CONSULTATION DATE: 07/19/2021 HISTORY OF [...] and Approved by: CRYS PIERCE . 07/20/2021 10:33:00[facility]05-25-2022 NotePROCEDURE: XR FOOT RT MIN 3 [...] Electronically authenticated by: PATTIE SALTER Date: 2021-07-05 11:11[facility]05-10-2022 NoteCONSULTATION CONSULTATION DATE: 06/20/2021 CHIEF COMPLAINT: [...] like to proceed. CC: Jonathan Edwards M.D. [facility] Signed and Approved by: DR RICARDO HOLM . 06/27/2021 10:40:00[facility] Routine cervical smear Screening for malignant neoplasm of the cervix documented in this encounter [facility] Work Phone: evaluation note* Diagnosis Diabetic polyneuropathy associated with type 2 diabetes mellitus (CMS/HCC)- Primary documented in this encounter [facility] HealthcareEvaluation noteNo assessment information availableOhiohealth [facility] Work Phone: Evaluation note* Diagnosis [...] diabetes mellitus (CMS/HCC) documented in this encounter [facility]* Diagnosis Encounter for [...] chronicity, unspecified site documented in this encounter [facility]* Diagnosis Encounter for [...] Tobacco use disorder documented in this encounter [facility]* Diagnosis Encounter for [...] complication, without long-term current use of insulin (CMS/[facility]) Diabetic polyneuropathy associated with type 2 diabetes mellitus (CMS/HCC) Mixed urge and stress incontinence Mixed incontinence urge and stress (male)(female) Snoring Other dyspnea and respiratory abnormality Encounter for long-term (current) use of high-risk medication Encounter for long-term (current) use of other medications Type 2 diabetes mellitus with diabetic microalbuminuria, without long-term current use of insulin ([facility])- Primary Essential hypertension Unspecified essential hypertension Other hyperlipidemia (CMS/[facility]) Snoring Other dyspnea and respiratory abnormality Mixed urge and stress incontinence Mixed incontinence urge and stress (male)(female) documented in this encounter [facility] HealthcareEvaluation note* Diagnosis Encounter for screening mammogram for breast cancer- Primary Encounter for screening for malignant neoplasm of colon Type 2 diabetes mellitus without complication, without long-term current use of insulin ([facility]) Upper respiratory tract infection, unspecified type URTI (acute upper respiratory infection) Acute upper respiratory infections of unspecified site Migraine with aura and without status migrainosus, not intractable ([facility])- Primary Type 2 diabetes mellitus without complication, without long-term current use of insulin ([facility]/HCC) Morbid (severe) obesity due to excess calories (E66.01) Body mass index [BMI] 40.0-44.9, adult (Z68.41) Essential hypertension Unspecified essential hypertension Essential hypertension- Primary Unspecified essential hypertension Type 2 diabetes mellitus without complication, without long-term current use of insulin ([facility]) Back spasm Other symptoms referable to back Closed fracture of proximal end of left fibula with routine healing, unspecified fracture morphology, subsequent encounter Closed nondisplaced fracture of second metatarsal bone of left foot with routine healing, subsequent encounter Other hyperlipidemia (CMS/[facility]) Hyperuricemia Other abnormal blood chemistry Osteoporosis, unspecified osteoporosis type, unspecified pathological fracture presence (CMS/HCC) Diabetic polyneuropathy associated with type 2 diabetes mellitus (CMS/HCC) Gastroesophageal reflux disease without esophagitis Esophageal reflux Migraine with aura and without status migrainosus, not intractable ([facility]) Hospital discharge follow-up Other follow-up [...] microalbuminuria, without long-term current use of insulin ([facility]/HCC)- Primary Essential hypertension Unspecified essential hypertension Other hyperlipidemia (CMS/HCC) Snoring Other dyspnea and respiratory abnormality Mixed urge and stress incontinence Mixed incontinence urge and stress (male)(female) Lumbar back pain Lumbago [facility] Diagnosis Essential hypertension- Primary Unspecified essential hypertension Type 2 diabetes mellitus with diabetic microalbuminuria, without long-term current use of insulin (CMS/HCC) Morbid (severe) obesity due to excess calories (E66.01) Other hyperlipidemia (CMS/HCC) Lumbar back pain Lumbago Type 2 diabetes mellitus without complication, without long-term current use of insulin ([facility]/HCC) Diabetic polyneuropathy associated with type 2 diabetes mellitus (CMS/HCC) Mixed urge and stress incontinence Mixed incontinence urge and stress (male)(female) Snoring Other dyspnea and respiratory abnormality [facility] Diagnosis Gout, unspecified cause, unspecified chronicity, unspecified site [facility] Diagnosis Diabetic polyneuropathy associated with type 2 diabetes mellitus (CMS/HCC) [facility] Diagnosis Encounter for screening mammogram [...] with routine healing, subsequent encounter Other hyperlipidemia (CMS/[facility]) Hyperuricemia Other abnormal blood chemistry Osteoporosis, unspecified osteoporosis type, unspecified pathological fracture presence (CMS/[facility]) Diabetic polyneuropathy associated with type [...] microalbuminuria, without long-term current use of insulin ([facility]/HCC)- Primary Essential hypertension Unspecified essential hypertension Other hyperlipidemia (CMS/HCC) Snoring Other dyspnea and respiratory abnormality Mixed urge and stress incontinence Mixed incontinence urge and stress (male)(female) Lumbar back pain- Primary Lumbago Type 2 diabetes mellitus with diabetic microalbuminuria, without long-term current use of insulin (CMS/[facility]) documented [facility] Narrative - Reported* Type Description Date Medical History GERD (gastroesophageal reflux di sease) Medical History Migraine headache Medical History Arthritis Medical History Edema of both legs Medical History Diabetes mellitus, type 2 Medical History Chronic back pain Surgical History ablasion Surgical History back surgery Surgical History hysterectomy Surgical History tubal ligation Hospitalization History see above Digital Theatre Other Reason for referral (narrative)* Consultation (Routine) - Pending Review Specialty Diagnoses / Procedures Referred By Darren acharya Referred To Contact Neurology Diagnoses Snoring Procedures MS OFFICE/OUTPATIENT [facility] 60 MINUTES Sonam Drake NP [address] [place] [address] Sivan Villegas DO [address] [place] [address] Referral ID Status Reason Start Date Expiration Date Visits Requested Visits Authorized [id number] Pending Review Specialty Services Required 10/03/2023 03/31/2024 1 1 Scheduling Instructions Please include OV note from today * Consultation (Routine) - Pending Review Specialty Diagnoses / Procedures Referred By Darren acharya Referred To Contact Urology Diagnoses Mixed urge and stress incontinence Procedures MS OFFICE/OUTPATIENT [facility] 60 MINUTES Sonam Drake NP [address] [place] [address] Skinny Villafuerte MD [address] [place] [address] Referral ID Status Reason Start Date Expiration Date Visits Requested Visits Authorized [id number] Pending Review Specialty Services Required 10/03/2023 03/31/2024 1 1 [facility] Summary Purpose Family History Relationship Condition Age at Onset Recorded Date/T samreen Not Specified Heart disease Unknown Diabetes mellitus Unknown Advance Directives Advance Directive Response Recorded Date/ Time Advance Directives No January 12, 2017 9:25pm Chief Complaint and Reason for Visit Chief Complaint 4-6 WEEK RECHECK Additional Source Comments Care Teams (unrecognized sec tion and content) Tube Sizer Operator Relationship Specialty Start Date End Date Sr Jonathan Edwards, [address] [facility] [place] [address] PCP - General Family Medicine 08/30/21 Tube Sizer Operator Relationship Specialty Start Date End Date [...] April 30, 2023 End: April 30, 2023 Tube Sizer Operator Relationship Specialty Start Date End Date Jose Chandler MD [address] [place] [phone] PCP - General Family Medicine 12/12/23 Sonam Drake NP [address] [place] [address] Nurse Practitioner Family Medicine 09/24/23 Tube Sizer Operator Relationship Specialty Start Date End Date Jose Chandler MD [address] [place] [address] PCP - General Family Medicine 12/12/23 Sonam Drake NP [address] [place] [address] Nurse Practitioner Family Medicine 09/24/23 Tube Sizer Operator Relationship Specialty Start Date End Date Jose Chandler MD [address] [place] [address] PCP - General Family Medicine 12/12/23 Sonam Drake NP [address] [place] [address] Nurse Practitioner Family Medicine 09/24/23 Tube Sizer Operator Relationship Specialty Start Date End Date Jose Chandler MD [address] [place] [phone] PCP - General Family Medicine 12/12/23 Sonam Drake NP [address] [place] [address] Nurse Practitioner Family Medicine 09/24/23 Tube Sizer Operator Relationship Specialty Start Date End Date Jose Chandler MD [address] [place] [phone] PCP - General Family Medicine 12/12/23 Sonam Drake NP [address] [place] [address] Nurse Practitioner Family Medicine 09/24/23 Tube Sizer Operator Relationship Specialty Start Date End Date Jose Chandler MD [address] [place] [phone] PCP - General Family Medicine 12/12/23 Sonam Drake NP [address] [place] [address] Nurse Practitioner Family Medicine 09/24/23 Tube Sizer Operator Relationship Specialty Start Date End Date Joes Chandler MD [address] [place] [phone] PCP - General Family Medicine 09/24/23 Sonam Drake NP [address] [place] [address] Nurse Practitioner Family Medicine 09/24/23 Tube Sizer Operator Relationship Specialty Start Date End Date Jose Chandler MD [address] [place] [phone] PCP - General Family Medicine 09/24/23 Sonam Drake NP [address] [place] [address] Nurse Practitioner Family Medicine 09/24/23 Tube Sizer Operator Relationship Specialty Start Date End Date Jose Chandler MD [address] [place] [phone] PCP - General Family Medicine 09/24/23 Sonam Drake NP [address] [place] [address] Nurse Practitioner Family Medicine 09/24/23 Tube Sizer Operator Relationship Specialty Start Date End Date Jose Chandler MD [address] [place] [address] PCP - General Family Medicine 09/24/23 Sonam Drake NP [address] [place] [address] Nurse Practitioner Family Medicine 09/24/23 Tube Sizer Operator Relationship Specialty Start Date End Date Jose Chandler MD [address] [place] [address] PCP - General Family Medicine 12/12/23 Sonam Drake NP [address] [place] [address] Nurse Practitioner Family Medicine 09/24/23 INFORMATION SOURCE (unrecogn ized section and content) DATE CREATED AUTHOR 09/10/2021 [facility] DATE CREATED AUTHOR AUTHOR'S ORGANIZ ATION 06/08/2022 [facility] DATE CREATED AUTHOR AUTHOR'S ORGANIZ ATION 10/06/2023 [facility] DATE CREATED AUTHOR AUTHOR'S ORGANIZ ATION 01/01/2024 [facility] EPIC REASON FOR VISIT (unrecogniz ed section and content) Reason Onset Date Comments Med Refill 12/17/2023 Reason Comments Med Refill Reason Comments Sleep Apnea Reason Comments Diabetes Reason Onset Date Comments Med Refill 01/14/2024 Reason Comments Follow-up 3mo Urinary Frequency C/o of nocturnal enu resis Reason Onset Date Comments Med Refill 11/04/2023 Reason Onset Date Comments Med Refill 11/01/2023 Reason Onset Date Comments Med Refill 01/30/2024 Goals (unrecognized section and content) Goals may [...] BE BASED ON THE PRIMARY CLINICAL RECORDS. [facility] [employer] [facility]. provides no warranty or guarantee of the accuracy or completeness of information in this document.
== END 2024-02-10 20:50 | disposition home or self-care (01) ==
LOC: SLEEP 20:49
PROVIDERS: Visit Provider Psychiatry & Neurology Neurology
DX: G47.33 Obstructive sleep apnea (adult) (pediatric) (principal)
CPT/HCPCS: 95811

== ENCOUNTER 2024-03-04 09:04 | Outpatient (OUT) | payer OTHER, MEDICARE, SELFPAY ==
--- OUTSIDE RECORDS SUMMARY | 2024-03-04 09:15 | XMS_ITS | CCD ---
Author Organization [facility] Care Team Providers Care Theater Teacher Name Role Phone House DO, Sr Jonathan Klein Primary Care Provider [phone] BARCLAYRADHA Referring Unavailabl e HOUSE, SR JONATHAN [...] Unavailable HOUSE, DR BASURTO Primary Care Unavailable KIRKLAND, DR RYAN Guzman Consulting Unavailable HOUSE, DR [...] DR RICARDO Belcher Attending Unavailable LAKSHMIPATHY ., BILYL Consulting Nellie vailable HOUSE, DR BASURTO Primary Care Unavailable HOLM ., DR RICARDO Belcher Admitting Unavailable HOLM ., DR RICARDO Belcher Attending Unavailable PIERCE ., CRYS Consulting Unavailable Elle Hendricks Unavailable Shaikh Connelly MD Primary Care Provider Vidal FURNITURE STAINER, Sonam Unavailable Jose Chandler MD Primary Care Provider ALICIA GARCIA Attending Unavailable SHAIKH CONNELLY Attending Unavailable SHAIKH CONNELLY Attending Unavailable SHAIKH CONNELLY Attending Unavailable SHAIKH CONNELLY Attending Unavailable SONAM DRAKE Attending UnavailSHAIKH Knott Attending Unavailable SONAM DRAKE Attending UnavailSIVAN Cruz Attending Unavailable SONAM DRAKE Referring UnavailJose Padgett MD Primary Care Provider [phone] Medications Current Medications Medication Drug Class(es) Dates Sig (Normalized) Sig (Original) allopurinol 300 mg oral tablet (20 sources) Xanthine Oxidase Inhibitor Start: 07-04-2023 End: 12-31-2023 take 1 tablet by mouth once daily allopurinol (Zyloprim) 300 MG tablet Take 300 mg by mouth Daily 12/17/2023 Active take 1 tablet by alonso th every twenty-four hours Allopurinol 300 MG 1 tablet Orally Once a day Active ALLOPURINOL PO T karolyn by mouth 0 Active amoxicillin 875 mg / clavulanate 125 mg oral tablet (2 sources) Penicillin-class Antibacterial Start: 03-03-2024 End: 03-10-2024 take 1 tablet by mouth in the morning amoxicillin-clavulanate (Augmentin) 875-125 MG tablet Indications: Upper respiratory infection with cough and congestion Take 1 tablet (875 mg) by mouth in the morning and 1 tablet (875 mg) before bedtime. Do all this for 7 days. 14 tablet 03/03/2024 03/10/2024 Active Aspir-81 81 MG (5 sources) take [...] 2017 1:00am baclofen 20 mg oral tablet (19 sources) gamma-Aminobutyric Acid-ergic Agonist Start: 08-22-2023 End: [...] mg by mouth at bedtime 0 Active benzonatate 200 mg oral capsule (2 sources) Non-narcotic Antitussive Start: 03-03-2024 End: 03-10-2024 take 1 capsule by mouth three times daily as needed for cough benzonatate (Tessalon) 200 MG capsule Indications: Upper respiratory infection with cough and congestion Take 1 capsule (200 mg) by mouth 3 (three) times a day as needed for cough for up to 7 days Do not crush or chew. 20 capsule 03/03/2024 03/10/2024 Active chlorhexidine gluconate 40 mg/ml medicated liquid [...] by mouth in the morning. 0 Active colchicine 0.6 mg oral tablet (20 sources) Start: 03-03-2024 colchicine 0.6 MG tablet TAKE 2 TABLETS BY MOUTH AT ONSET OF ACUTE GOUT, MAY TAKE 1 TABLET IN 1 HOURS. NO MORE THAN 3 TABLETS DAILY 03/03/2024 Active Start: 03-03-2024 colchicine 0.6 MG tablet TAKE 2 TABLETS BY MOUTH AT ONSET OF ACUTE GOUT, MAY TAKE 1 TABLET IN 1 HOURS. NO MORE THAN 3 TABLETS DAILY 03/03/2024 Active Start: 12-18-2023 End: 12-31-2023 colchicine 0.6 MG tablet Ind ications: Gout, unspecified cause, unspecified chronicity, unspecified site TAKE 2 TABLETS BY MOUTH AT ONSET OF ACUTE GOUT, MAY TAKE 1 TABLET IN 1 HOURS. NO MORE THAN 3 TABLETS DAILY 30 tablet 12/18/2023 12/31/2023 Discontinued (Med list cleanup) Start: 03-06-2023 End: 11-04-2023 colchicine 0.6 MG tablet Ind ications: Gout, unspecified cause, unspecified chronicity, unspecified site TAKE 2 TABLETS BY MOUTH AT ONSET OF ACUTE GOUT, MAY TAKE 1 TABLET IN HOUR. NO MORE THAN 3 TABLETS IN ONE DAY 30 tablet 03/06/2023 11/04/2023 Discontinued (Reorder) Start: 05-02-2022 End: 03-03-2024 colchicine 0.6 MG tablet Ind ications: Gout, unspecified cause, unspecified chronicity, unspecified site Take 1 tablet (0.6 mg) by mouth See administration instructions TAKE 2 TABLETS BY MOUTH AT ONSET OF ACUTE GOUT, MAY TAKE 1 TABLET IN HOUR. NO MORE THAN 3 TABLETS IN ONE DAY 30 tablet 11/04/2023 12/18/2023 Discontinued Continuous Glucose Insert Cutter (Dexcom G7 Insert Cutter) device (2 sources) Start: 03-03-2024 Continuous Glucose Insert Cutter (Dexcom G7 Insert Cutter) device Indications: Type 2 diabetes mellitus with diabetic microalbuminuria, without long-term current use of insulin ([facility]) 1 each continuously 1 each 03/03/2024 Active Continuous Glucose Sensor (Dexcom G7 Sensor) misc (2 sources) Start: 03-03-2024 Continuous Glucose Sensor (Dexcom G7 Sensor) misc Indications: Type 2 diabetes mellitus with diabetic microalbuminuria, without long-term current use of insulin ([facility]) 1 each continuously 3 each 11 03/03/2024 Active diclofenac sodium 75 mg delayed release oral tablet (20 sources) Nonsteroidal Anti-inflammatory Drug Start: 03-03-2024 take 1 tablet by mouth in the morning diclofenac (Voltaren) 75 MG EC tablet Indications: Lumbar back pain Take 1 tablet (75 mg) by mouth in the morning and 1 tablet (75 mg) before bedtime. Do not crush, chew, or split.. 90 tablet 03/03/2024 Active Start: 03-03-2024 take 1 tablet by alonso th in the morning diclofenac (Voltaren) 75 MG EC tablet Indications: Lumbar back pain Take 1 tablet (75 mg) by mouth in the morning and 1 tablet (75 mg) before bedtime. Do not crush, chew, or split.. 90 tablet 03/03/2024 Active Start: 07-04-2023 End: 12-31-2023 take 1 [...] tablet 1 07/04/2023 12/31/2023 Start: 08-07-2021 End: 03-03-2024 take 1 tablet by mouth in the morning diclofenac (Voltaren) 75 MG EC tablet Indications: Lumbar back pain Take 1 tablet (75 mg) by mouth in the morning and 1 tablet (75 mg) before bedtime. Do not crush, chew, or split.. 90 tablet 01/30/2024 03/03/2024 Discontinued (Reorder) Voltaren Active eletriptan 40 mg oral tablet (7 sources) Serotonin-1b and Serotonin-1d Receptor Agonist Start: 01-12-2017 Eletriptan (Relpax) 40 mg Tablet Active 40 MG PO January 12, 2017 1:00am take 1 tablet by alonso th every twenty-four hours Relpax 40 MG 1 tablet as needed one time Orally Once a day Active famotidine 20 mg oral tablet (20 sources) Histamine-2 Receptor Antagonist Start: 07-04-2023 End: [...] BY MOUTH EVERY DAY 0 08/16/2021 Active fluticasone propionate 0.05 mg/actuat metered dose nasal spray (2 sources) Corticosteroid Start: 03-03-2024 End: 03-03-2025 take 1-2 spray(s) nasal route once daily fluticasone (Flonase) 50 MCG/ACT nasal spray Indications: Upper respiratory infection with cough and congestion Administer 1-2 sprays into each nostril Daily Shake gently. Before first use, prime pump. After use, clean tip and replace cap. 16 g 2 03/03/2024 03/03/2025 Active furosemide 20 mg oral tablet (14 sources) Loop Diuretic Start: 08-05-2023 End: 02-01-2024 furosemide (Lasix) 20 MG tablet Take 20 mg by mouth if needed 02/02/2024 Active glimepiride 1 mg oral tablet (10 sources) Sulfonylurea Start: 09-03-2023 End: 03-03-2024 take 1 tablet by mouth once daily glimepiride (Amaryl) 1 MG tablet 1 mg 1/2 po every day 09/03/2023 03/03/2024 Discontinued Start: 06-05-2021 take 0.5 tablet by m [...] tablet (20 sources) Biguanide Start: 08-05-2023 End: 06-01-2024 take 1 tablet by mouth in the morning metFORMIN (Glucophage) 500 MG tablet Indications: Type 2 diabetes mellitus with diabetic microalbuminuria, without long-term current use of insulin ([facility]) Take 1 tablet (500 mg) by mouth in the morning and 1 tablet (500 mg) in the evening. Take with meals. 180 tablet 03/03/2024 06/01/2024 Active Start: 08-07-2021 metFORMIN (GLU COPHAGE) 500 [...] Ozempic (0.25 or 0.5 MG/DOSE) Active predniSONE 20 mg oral tablet (5 sources) Start: 03-03-19 End: 03-08-19 take 1 tablet by mouth once daily predniSONE (Deltasone) 20 MG tablet Indications: Upper respiratory infection with cough and congestion Take 1 tablet (20 mg) by mouth Daily for 5 days 5 tablet 03/03/2024 03/08/2024 Active Start: 08-18-2023 End: 10-03-2023 take 1 tablet by mouth once daily predniSONE (Deltasone) 50 MG tablet Take 50 mg by mouth Daily 08/18/2023 10/03/2023 Discontinued (Therapy completed) pregabalin 75 mg oral capsule (20 sources) Start: 09-05-2023 End: 06-01-2024 take 1 capsule by mouth in the [...] capsule (75 mg) before bedtime. 270 capsule 03/03/2024 06/01/2024 Active Start: 03-21-2023 End: 06-19-2023 take 1 [...] day Active take 1 capsule by mo [facility] twice daily pregabalin (LYRICA) 50 MG capsule Lyrica 50 mg capsule Take 1 capsule twice a day by oral route. 0 Active Probiotic (5 sources) Probiotic Active raNITIdine 150 mg oral tablet (5 sources) Histamine-2 Receptor Antagonist take 1 tablet by mouth twice daily Ranitidine HCl 150 MG 1 Tablet Orally bid Active rizatriptan 10 mg oral tablet (19 sources) Serotonin-1b and Serotonin-1d Receptor Agonist Start: [...] tablet (20 sources) HMG-CoA Reductase Inhibitor Start: 5 take 1 tablet by mouth once daily rosuvastatin (Crestor) 20 MG tablet Indications: Other hyperlipidemia (CMS/HCC) Take 1 tablet (20 mg) by mouth Daily 90 tablet 1 03/03/2024 Active Start: 03-03-2024 take 1 tablet by alonso once daily rosuvastatin (Crestor) 20 MG tablet Indications: Other hyperlipidemia (CMS/HCC) Take 1 tablet (20 mg) by mouth Daily 90 tablet 1 03/03/2024 Active Start: 07-04-2023 End: 03-03-2024 take 1 tablet by mouth once daily rosuvastatin (Crestor) 20 MG tablet Indications: Other hyperlipidemia (CMS/HCC) Take 1 tablet (20 mg) by mouth Daily 90 tablet 1 10/03/2023 03/03/2024 Discontinued (Reorder) take 1 tablet by alonso th every [...] Mood Stabilizer, Anti-epileptic Agent Start: 07-04-2023 End: 08-30-2024 take 1 tablet by mouth in the morning divalproex (Depakote) 500 MG EC tablet Indications: Migraine with aura and without status migrainosus, not intractable (CMS/HCC) Take 1 tablet (500 mg) by mouth in the morning and 1 tablet (500 mg) before bedtime. Do not crush, chew, or split.. 180 tablet 1 03/03/2024 08/30/2024 Active Start: 01-12-2017 take 1 tablet by [...] for the next 30 min. 0 Active ascorbic acid 100 mg oral [...] 11 02/25/2023 12/31/2023 Discontinued (Med list cleanup) indomethacin 50 [...] 12, 2017 1:00am January 15, 2017 2:23pm Fbqwzmwwmuri-Ry-Aw on-Minerals (Multiple Vitamin, Womens) Tablet (1 source) Start: 01-12-2017 End: 01-15-2017 Jdgknilxrkos-Yl-M pablo-Minerals (Multiple Vitamin, Womens) Tablet Discontinued PO Daily [...] Onset: 07-05-2021 Chronic Disorders of lipid metabolism (20 sources) Hyperlipidemia; Translations: [Other hyperlipidemia] Onset: 05-02-2023 05-02-2023 Chronic Essential hypertension (20 sources) Essential (primary) hypertension; Translations: [Hypertensive disorder] Onset: 04-16-2022 01-13-2017 Chronic Genitourinary symptoms and ill-defined conditions (20 sources) Incontinence; Translations: [Mixed incontinence] Onset: 10-03-2023 10-03-2023 Chronic Genitourinary symptoms and ill-defined conditions (11 sources) Increased frequency of urination; Translations: [Frequency of micturition] Onset: 12-30-2023 12-30-2023 Episodic Gout and other crystal arthropathies (13 sources) Gout; Translations: [Gout, unspecified] Chronic Headache; including migraine (20 sources) Migraine with aura; Translations: [Migraine with [...] Chronic Other nutritional; endocrine; and metabolic disorders (20 sources) Obesity caused by energy imbalance; Translations: [Morbid (severe) obesity due to excess calories] Onset: 05-02-2023 05-02-2023 Chronic Other nutritional; endocrine; and metabolic disorders (18 sources) Body mass index 40+ - severely obese; Translations: [Body mass index (BMI) 40.0-44.9, adult] Onset: 05-02-2023 05-02-2023 Chronic Other upper respiratory infections (20 sources) Acute upper respiratory infection; Translations: [Acute upper respiratory infection, unspecified] Onset: 01-29-2023 01-29-2023 Episodic Residual codes; unclassified (4 sources) Obstructive sleep [...] fracture] Onset: 07-04-2023 07-04-2023 Episodic Other aftercare (18 sources) Post-discharge follow-up; Translations: [Encounter for follow-up examination after completed treatment for conditions other than malignant neoplasm] Onset: 07-04-2023 07-04-2023 Episodic Other and unspecified benign neoplasm (18 sources) Melanocytic nevus of trunk; Translations: [Melanocytic [...] 10-03-2023 Episodic Other non-epithelial cancer of skin (19 sources) Basal cell carcinoma of nose; Translations: [...] malignant neoplasm of cervix] Onset: 01-29-2023 Episodic Residual codes; unclassified (18 sources) Bilateral lower limb edema; Translations: [Localized edema] Onset: 08-05-2023 08-05-2023 Episodic Unclassified (1 source) LOW BACK PAIN, UNSPECIFIED; Translations: [LOW BACK PAIN, UNSPECIFIED] Onset: 06-20-2021 Results Test Name Value Interpretation Reference Range Facility ALL CBC WITH AUTO DIFFon BASOPHILS ABSOLUTE AUTO 0.1 [facility] Basophils/100 WBC (Bld) 0.4 % 0.2 - 2.0 % [facility] Eosinophils/100 WBC (Bld) 3.2 % 0.9 - 7.0 % [facility] Erythrocyte distribution width (RBC) [Ratio] 15.6 % High 11.0 - 15.0 % [facility] Hematocrit (Bld) [Volume fraction] 42.4 % 36.0 - 48.0 % [facility] (Bld) [Mass/Vol] 13.9 g/dL 12.0 - 16.0 g/dL [facility] IMMATURE GRANULOCYTES ABS AUTO 0.09 High [facility] Immature granulocytes/100 WBC (Bld) 0.7 % High 0.0 - 0.5 % [facility] Interpretation and review of laboratory results Abnormal [facility] LYMPHOCYTES ABSOLUTE AUTO 3.5 [facility] Lymphocytes/100 WBC (Bld) 27.7 % 20.5 - 60.0 % [facility] MCH (RBC) [Entitic mass] 31.4 pg 26.7 - 34.0 pg [facility] MCHC (RBC) [Mass/Vol] 32.8 g/dL 29.9 - 35.2 g/dL [facility] MCV (RBC) [Entitic vol] 95.7 fL 81.0 - 99.0 fL [facility] MONOCYTES ABSOLUTE AUTO 0.9 High [facility] Monocytes/100 WBC (Bld) 7.4 % 1.7 - 12.0 % [facility] NEUTROPHILS ABSOLUTE AUTO 7.7 High [facility] Neutrophils/100 WBC (Bld) 60.6 % 43.0 - 75.0 % [facility] Platelet mean volume (Bld) [Entitic vol] 10.9 fL 9.5 - 13.5 fL [facility] are TBH EO # 0.4 [facility] e [facility]H PLT 219 [facility] Healthcar e TB RBC 4.43 [facility] e TBH WBC 12.8 High [facility]car e [facility] Healthcar e XR [...] SALTER Date: 2022-06-07 11:15 Normal [facility] CBC AUTO DIFFon 04-12-2022 BASO # 0.1 103/ul Normal 0.0-0.1 [facility] Comment on above: Performed By: #### C BC ####[facility] [address] [place] [address]Dr. Ricky Valenzuela Basophils/100 WBC (Bld) 0.5 % Normal 0.2-2.0 [facility] Comment on above: Performed By: #### C BC ####[facility] [address] [place] [address]Dr. Ricky Valenzuela EO # 0.3 103/ul Normal 0.0-0.7 [facility] Comment on above: Performed By: #### C BC ####[facility] [address] [place], [place] [address]Dr. Ricky Valenzuela Eosinophils/100 WBC (Bld) 3.0 % Normal 0.9-7.0 [facility] Comment on above: Performed By: #### C BC ####[facility] [address] [place], [place] [address]Dr. Ricky Valenzuela Erythrocyte distribution width (RBC) [Ratio] 14.8 % Normal 11.0-15.0 [facility] Comment on above: Performed By: #### C BC ####[facility] [address] [place], [place] [address]Dr. Ricky Valenzuela Hematocrit (Bld) [Volume fraction] 40.6 % Normal 36.0-48.0 [facility] Comment on above: Performed By: #### C BC ####[facility] [address] [place], [place] [address]Dr. Ricky Valenzuela Hemoglobin (Bld) [Mass/Vol] 13.5 g/dL Normal 12.0-16.0 [facility] Comment on above: Performed By: #### C BC ####[facility] [address] [place], [place] [address]Dr. Lesleysharron Valenzuela IG # 0.16 10e3/ul Critically high 0.00-0.03 [facility] Comment on above: Performed By: #### C BC ####[facility] [address] [place], [place] [address]Dr. Ricky Valenzuela IG % 1.4 % Critically high 0.0-0.5 [facility] Comment on above: Performed By: #### C BC ####[facility] [address] [place] [address]Dr. Ricky Valenzuela LYMPH # 3.4 103/ul Normal 1.2-3.8 [facility] Comment on above: Performed By: #### C BC ####[facility] [address] [place] [address]DrPasquale Valenzuela Lymphocytes/100 WBC (Bld) 30.4 % Normal 20.5-60.0 [facility] Comment on above: Performed By: #### C BC ####[facility] [address] [place] [address]DrPasquale Valenzuela MANUAL DIFF REQ NO Normal [facility] Comment on above: Performed By: #### C BC ####[facility] [address] [place] [address]DrPasquale Lesleysharron Valenzuela MCH (RBC) [Entitic mass] 31.8 pg Normal 26.7-34.0 [facility] Comment on above: Performed By: #### C BC ####[facility] [address] [place] [address]DrPasquale Ricky Nicolas MCHC (RBC) [Mass/Vol] 33.3 g/dL Normal 29.9-35.2 [facility] Comment on above: Performed By: #### C BC ####[facility] [address] [place] [address]DrPasquale Valenzuela MCV (RBC) [Entitic vol] 95.5 fL Normal 81.0-99.0 [facility] Comment on above: Performed By: #### C BC ####[facility] [address] [place] [address]DrPasquale Valenzuela MONO # 0.9 103/ul Critically high 0.3-0.8 [facility] Comment on above: Performed By: #### C BC ####[facility] [address] [place] [address]DrPasquale Valenzuela Monocytes/100 WBC (Bld) 7.7 % Normal 1.7-12.0 [facility] Comment on above: Performed By: #### C BC ####[facility] [address] [place] [address]Dr. Ricky Valenzuela NEUT # 6.3 103/ul Normal 1.4-6.5 [facility] Comment on above: Performed By: #### C BC ####[facility] [address] [place] [address]Dr. Ricky Valenzuela Neutrophils/100 WBC (Bld) 57.0 % Normal 43.0-75.0 [facility] Comment on above: Performed By: #### C BC ####[facility] [address] [place] [address]Dr. Ricky Valenzuela Platelet mean volume (Bld) [Entitic vol] 9.8 fL Normal 9.5-13.5 [facility] Comment on above: Performed By: #### C BC ####[facility] [address] [place] [address]Dr. Ricky Valenzuela PLT 246 103/ul Normal 150-450 [facility] Comment on above: Performed By: #### C BC ####[facility] [address] [place] [address]Dr. Ricky Valenzuela RBC 4.25 106/ul Normal 4.20-5.40 [facility] Comment on above: Performed By: #### C BC ####[facility] [address] [place] [id number]. Ricky Valenzuela WBC 11.1 103/ul Critically high 4.0-11.0 [facility] Comment on above: Performed By: #### C BC ####[facility] [address] [place] [address]Dr. Ricky Valenzuela GLYCOHEMOGLOBIN A1Con 2022 ADA RECOMMENDATION SEE BELOW Normal [facility] Comment on above: Result Comment: ADA RECOMMENDED LIMIT 4.0 - 6.0 ADA THERAPEUTIC TARGET < 7.0 ACTION SUGGESTED > 7.0 Performed By: #### A 1C ####[facility] [address] [place], [place] [address]NiDr. Ricky Valenzuela Glucose [Mass/Vol] 160 mg/dL Normal [facility] Comment on above: Performed By: #### A 1C ####[facility] [address] [place], [place] [address]TeDr. Ricky Valenzuela HbA1c (Bld) [Mass fraction] 7.2 % Critically high 4.5-6.2 [facility] Comment on above: Performed By: #### A 1C ####[facility] [address] [place] [id number]. Ricky Valenzuela MICROALBUMIN, RAND URon - mALB <1.3 Normal <=30.0 [facility] Comment on above: Performed By: #### M ALBR #### [facility] [address] [place] [address] Dr. Ricky Valenzuela PROF 14(COMP METB)on 023 Albumin [Mass/Vol] 3.3 g/dL Critically low 3.4-5.0 [facility] Comment on above: Performed By: #### C MP #### [facility] [address] [address] [address] Ricky Valenzuela Albumin/Globulin [Mass ratio] 0.9 {ratio} Normal [facility] Comment on above: Performed By: #### C MP #### [facility] [address] [address] [address] Ricky Valenzuela ALP [Catalytic activity/Vol] 90 U/L Normal 46-116 [facility] Comment on above: Performed By: #### C MP #### [facility] [address] [address] [address] Ricky Valenzuela ALT [Catalytic activity/Vol] 42 U/L Normal 14-59 [facility] Comment on above: Performed By: #### C MP #### [facility] [address] [address] [address] Ricky Valenzuela Anion gap [Moles/Vol] 10.1 mmol/L Normal [facility] Comment on above: Performed By: #### C MP #### [facility] [address] [address] [address] Ricky Valenzuela AST [Catalytic activity/Vol] 21 U/L Normal 15-37 [facility] Comment on above: Performed By: #### C MP #### [facility] [address] [address] [address] Ricky Valenzuela Bilirubin [Mass/Vol] 0.3 mg/dL Normal 0.2-1.0 [facility] Comment on above: Performed By: #### C MP #### [facility] [address] [address] [address] Ricky Valenzuela Calcium [Mass/Vol] 9.8 mg/dL Normal 8.5-10.1 [facility] Comment on above: Performed By: #### C MP #### [facility] [address] [place] [address] Dr. Ricky Valenzuela Chloride [Moles/Vol] 99 mmol/L Normal 98-107 [facility] Comment on above: Performed By: #### C MP #### [facility] [address] [place] [address] Dr. Ricky Valenzuela CO2 [Moles/Vol] 33.7 mmol/L Critically high 21.0-32.0 [facility] Comment on above: Performed By: #### C MP #### [facility] [address] [place] [address] Dr. Ricky Valenzuela Creatinine [Mass/Vol] 0.94 mg/dL Normal 0.55-1.02 [facility] Comment on above: Performed By: #### C MP #### [facility] [address] [place] [address] Dr. Ricky Valenzuela EGFR-AF SWEDISH >60 Normal >=60 [facility] Comment on above: Performed By: #### C MP #### [facility] [address] [place] [address] Dr. Ricky Valenzuela EGFR-NON AF SWEDISH >60 Normal >=60 [facility] Comment on above: Performed By: #### C MP #### [facility] [address] [place] [address] Dr. Ricky Valenzuela Globulin (S) [Mass/Vol] 3.8 g/dL Normal [facility] Comment on above: Performed By: #### C MP #### [facility] [address] [place] [address] Dr. Ricky Valenzuela Glucose [Mass/Vol] 168 mg/dL Critically high 74-106 T [facility] Comment on above: Performed By: #### C MP #### [facility] [address] [address] [address] Ricky Valenzuela Potassium [Moles/Vol] 4.8 mmol/L Normal 3.5-5.1 [facility] Comment on above: Performed By: #### C MP #### [facility] [address] [place] [address] Dr. Ricky Valenzuela Protein [Mass/Vol] 7.1 g/dL Normal 6.4-8.2 [facility] Comment on above: Performed By: #### C MP #### [facility] [address] [place] [address] Dr. Ricky Valenzuela Sodium [Moles/Vol] 138 mmol/L Normal 136-145 [facility] Comment on above: Performed By: #### C MP #### [facility] [address] [place] [address] Dr. Ricky Valenzuela Urea nitrogen [Mass/Vol] 22.0 mg/dL Critically high 7.0-18.0 [facility] Comment on above: Performed By: #### C MP #### [facility] [address] [place] [address] Dr. Ricky Valenzuela Urea nitrogen/Creatinine [Mass ratio] 23.4 mg/mg Normal [facility] Comment on above: Performed By: #### C MP #### [facility] [address] [place] [address] Dr. Ricky Valenzuela Cytologyon 08-30-2021 Cytology (NOTE) INTERPRETATION Vaginal material, (ThinPrep vial, Imaging-assisted review): Specimen Adequacy: Satisfactory for evaluation. Descriptive Diagnosis: Negative for intraepithelial lesion or malignancy. Chief Operator Lock Tender: CLARK Delacruz(ASCP) Electronically Signed Out [email or web address]/07/2021 Source: A: Vaginal material, (ThinPrep vial, Imaging-assisted review) Clinical History Hysterectomy Surgery: Salpingostomy; Ovary removal Z12.4 Encounter for screening for malignant neoplasm of cervix GYNECOLOGIC CYTOLOGY REPORT Patient Name: KARINA DE OLIVEIRA [facility] Rec: [id number] Path Number: [id number] [facility] ANATOMIC PATHOLOGY [address] [place] [id number] Normal [facility] Comment on above: Performed By: #### P PPVP #### [address] [id number] Helicopter Crew Chief: Luca Cummins MD CBC AUTO DIFFon 08-09-2021 BASO # 0.1 103/ul Normal 0.0-0.1 [facility] Comment on above: Performed By: #### C BC #### [facility] [address] [place] [address] Dr. Ricky Valenzuela Basophils/100 WBC (Bld) 0.8 % Normal 0.2-2.0 [facility] Comment on above: Performed By: #### C BC #### [facility] [address] [place] [address] Dr. Ricky Valenzuela EO # 0.2 103/ul Normal 0.0-0.7 [facility] Comment on above: Performed By: #### C BC #### [facility] [address] [place] [address] Dr. Ricky Valenzuela Eosinophils/100 WBC (Bld) 2.1 % Normal 0.9-7.0 [facility] Comment on above: Performed By: #### C BC #### [facility] [address] [place] [address] Dr. Ricky Valenzuela Erythrocyte distribution width (RBC) [Ratio] 15.2 % Critically high 11.0-15.0 [facility] Comment on above: Performed By: #### C BC #### [facility] [address] [place] [address] Dr. Ricky Valenzuela Hematocrit (Bld) [Volume fraction] 41.5 % Normal 36.0-48.0 [facility] Comment on above: Performed By: #### C BC #### [facility] [address] [place] [address] Dr. Ricky Valenzuela Hemoglobin (Bld) [Mass/Vol] 13.5 g/dL Normal 12.0-16.0 [facility] Comment on above: Performed By: #### C BC #### [facility] [address] [place] [address] Dr. Ricky Valenzuela IG # 0.42 10e3/ul Critically high 0.00-0.03 [facility] Comment on above: Performed By: #### C BC #### [facility] [address] [place] [address] Dr. Ricky Valenzuela IG % 3.8 % Critically high 0.0-0.5 [facility] Comment on above: Performed By: #### C BC #### [facility] [address] [place] [address] Dr. Ricky Valenzuela LYMPH # 3.3 103/ul Normal 1.2-3.8 [facility] Comment on above: Performed By: #### C BC #### [facility] [address] [place] [address] Dr. Ricky Valenzuela Lymphocytes/100 WBC (Bld) 29.1 % Normal 20.5-60.0 [facility] Comment on above: Performed By: #### C BC #### [facility] [address] [place] [address] Dr. Ricky Valenzuela MANUAL DIFF REQ NO Normal [facility] Comment on above: Performed By: #### C BC #### [facility] [address] [place] [address] Dr. Ricky Valenzuela MCH (RBC) [Entitic mass] 32.4 pg Normal 26.7-34.0 [facility] Comment on above: Performed By: #### C BC #### [facility] [address] [place] [address] Dr. Ricky Valenzuela MCHC (RBC) [Mass/Vol] 32.5 g/dL Normal 29.9-35.2 [facility] Comment on above: Performed By: #### C BC #### [facility] [address] [address] [address] Ricky Valenzuela MCV (RBC) [Entitic vol] 99.5 fL Critically high 81.0-99.0 [facility] Comment on above: Performed By: #### C BC #### [facility] [address] [address] [address] Ricky Valenzuela MONO # 0.8 103/ul Normal 0.3-0.8 [facility] Comment on above: Performed By: #### C BC #### [facility] [address] [address] [address] Ricky Valenzuela Monocytes/100 WBC (Bld) 7.5 % Normal 1.7-12.0 [facility] Comment on above: Performed By: #### C BC #### [facility] [address] [address] [address] Ricky Valenzuela NEUT # 6.3 103/ul Normal 1.4-6.5 [facility] Comment on above: Performed By: #### C BC #### [facility] [address] [address] [address] Ricky Valenzuela Neutrophils/100 WBC (Bld) 56.7 % Normal 43.0-75.0 [facility] Comment on above: Performed By: #### C BC #### [facility] [address] [address] [address] Ricky Valenzuela Platelet mean volume (Bld) [Entitic vol] 9.8 fL Normal 9.5-13.5 [facility] Comment on above: Performed By: #### C BC #### [facility] [address] [address] [address] Ricky Valenzuela PLT 265 103/ul Normal 150-450 [facility] Comment on above: Performed By: #### C BC #### [facility] [address] [address] [address] Ricky Valenzuela RBC 4.17 106/ul Critically low 4.20-5.40 [facility] Comment on above: Performed By: #### C BC #### [facility] [address] [address] [address] Ricky Valenzuela WBC 11.2 103/ul Critically high 4.0-11.0 [facility] Comment on above: Performed By: #### C BC #### [facility] [address] [address] [address] Ricky Valenzuela GLYCOHEMOGLOBIN A1Con 2021 ADA RECOMMENDATION SEE BELOW Normal [facility] Comment on above: Result Comment: ADA RECOMMENDED LIMIT 4.0 - 6.0 ADA THERAPEUTIC TARGET < 7.0 ACTION SUGGESTED > 7.0 Performed By: #### A 1C ####[facility] [id number] [place] [address]Dr. Ricky Valenzuela Glucose [Mass/Vol] 183 mg/dL Normal [facility] Comment on above: Performed By: #### A 1C ####[facility] [id number] [place] [address]Dr. Ricky Valenzuela HbA1c (Bld) [Mass fraction] 8.0 % Critically high 4.5-6.2 [facility] Comment on above: Performed By: #### A 1C ####[facility] [id number] [place] [address]Dr. Ricky Valenzuela LIPID PROFILEon 08-09-2021 CHOL-HDL RATIO NORM SEE BELOW Normal [facility] Comment on above: Result Comment: 3.3 - 4.4 LOW RISK 4.4 - 7.1 AVERAGE RISK 7.1 - 11.0 MODERATE RISK >11.0 HIGH RISK Performed By: #### C MP, LIPID #### [facility] [address] [address] [address] Ricky Valenzuela Cholesterol [Mass/Vol] 239 mg/dL Critically high <=200 [facility] Comment on above: Performed By: #### C MP, LIPID #### [facility] [address] [address] [address] Ricky Valenzuela Cholesterol in HDL [Mass/Vol] 36 mg/dL Critically low 40-60 [facility] Comment on above: Performed By: #### C MP, LIPID #### [facility] [address] [address] [address] Ricky Valenzuela Cholesterol in LDL [Mass/Vol] 164.2 mg/dL Normal [facility] Comment on above: Performed By: #### C MP, LIPID #### [facility] [address] [address] [address] Ricky Valenzuela Cholesterol.total/Ch olesterol in HDL [Mass ratio] 6.6 {ratio} Normal [facility] Comment on above: Performed By: #### C MP, LIPID #### [facility] [address] [address] [address] Ricky Valenzuela HDL NORMAL > or = 60 mg/dl - LOW CARDIOVASCULAR RISK <40 mg/dl - HIGH CARDIOVASCULAR RISK Normal [facility] Comment on above: Performed By: #### C MP, LIPID #### [facility] [address] [address] [address] Ricky Valenzuela LDL CALC NORMAL SEE BELOW Normal [facility] Comment on above: Result Comment: <100 mg/dl OPTIMAL 100 - 129 mg/dl NEAR OR ABOVE OPTIMAL 130 - 159 mg/dl BORDERLINE HIGH 160 - 189 mg/dl HIGH >190 mg/dl VERY HIGH Performed By: #### C MP, LIPID #### [facility] [address] [address] [address] Ricky Valenzuela Triglyceride [Mass/Vol] 194 mg/dL Critically high <=150 [facility] Comment on above: Performed By: #### C MP, LIPID #### [facility] [address] [address] [address] Ricky Valenzuela VLDL CALC 38.8 mg/dL Normal [facility] Comment on above: Performed By: #### C MP, LIPID #### [facility] [address] [address] [address] Ricky Valenzuela MICROALBUMIN, RAND URon 06-2 mALB 13.1 mg/L Normal <=30.0 [facility] Comment on above: Performed By: #### M ALBR ####[facility] [id number] [place] [address]Dr. Ricky Valenzuela PROF 14(COMP METB)on 022 Albumin [Mass/Vol] 3.3 g/dL Critically low 3.4-5.0 [facility] Comment on above: Performed By: #### C MP, LIPID #### [facility] [address] [place] [address] Dr. Ricky Valenzuela Albumin/Globulin [Mass ratio] 0.8 {ratio} Normal [facility] Comment on above: Performed By: #### C MP, LIPID #### [facility] [address] [place] [address] Dr. Ricky Valenzuela ALP [Catalytic activity/Vol] 93 U/L Normal 46-116 [facility] Comment on above: Performed By: #### C MP, LIPID #### [facility] [address] [place] [address] Dr. Ricky Valenzueal ALT [Catalytic activity/Vol] 37 U/L Normal 14-59 [facility] Comment on above: Performed By: #### C MP, LIPID #### [facility] [address] [place] [address] Dr. Ricky Valenzuela Anion gap [Moles/Vol] 10.9 mmol/L Normal [facility] Comment on above: Performed By: #### C MP, LIPID #### [facility] [address] [place] [address] Dr. Ricky Valenzuela AST [Catalytic activity/Vol] 10 U/L Critically low 15-37 [facility] Comment on above: Performed By: #### C MP, LIPID #### [facility] [address] [place] [address] Dr. Ricky Valenzuela Bilirubin [Mass/Vol] 0.2 mg/dL Normal 0.2-1.0 [facility] Comment on above: Performed By: #### C MP, LIPID #### [facility] [address] [place] [address] Dr. Ricky Valenzuela Calcium [Mass/Vol] 9.0 mg/dL Normal 8.5-10.1 [facility] Comment on above: Performed By: #### C MP, LIPID #### [facility] [address] [place] [address] Dr. Ricky Valenzuela Chloride [Moles/Vol] 100 mmol/L Normal 98-107 [facility] Comment on above: Performed By: #### C MP, LIPID #### [facility] [address] [place] [address] Dr. Ricky Valenzuela CO2 [Moles/Vol] 32.2 mmol/L Critically high 21.0-32.0 [facility] Comment on above: Performed By: #### C MP, LIPID #### [facility] [address] [place] [address] Dr. Ricky Valenzuela Creatinine [Mass/Vol] 0.95 mg/dL Normal 0.55-1.02 [facility] Comment on above: Performed By: #### C MP, LIPID #### [facility] [address] [place] [address] Dr. Ricky Valenzuela EGFR-AF SWEDISH >60 Normal >=60 [facility] Comment on above: Performed By: #### C MP, LIPID #### [facility] [address] [place] [address] Dr. Ricky Valenzuela EGFR-NON AF SWEDISH >60 Normal >=60 [facility] Comment on above: Performed By: #### C MP, LIPID #### [facility] [address] [place] [address] Dr. Ricky Valenzuela Globulin (S) [Mass/Vol] 4.2 g/dL Normal [facility] Comment on above: Performed By: #### C MP, LIPID #### [facility] [address] [place] [address] Dr. Ricky Valenzuela Glucose [Mass/Vol] 200 mg/dL Critically high 74-106 [facility] Comment on above: Performed By: #### C MP, LIPID #### [facility] [address] [place] [address] Dr. Ricky Valenzuela Potassium [Moles/Vol] 4.1 mmol/L Normal 3.5-5.1 [facility] Comment on above: Performed By: #### C MP, LIPID #### [facility] [address] [place] [address] Dr. Ricky Valenzuela Protein [Mass/Vol] 7.5 g/dL Normal 6.4-8.2 [facility] Comment on above: Performed By: #### C MP, LIPID #### [facility] [address] [address] [address] Ricky Valenzuela Sodium [Moles/Vol] 139 mmol/L Normal 136-145 [facility] Comment on above: Performed By: #### C MP, LIPID #### [facility] [address] [address] [address] Ricky Valenzuela Urea nitrogen [Mass/Vol] 13.0 mg/dL Normal 7.0-18.0 [facility] Comment on above: Performed By: #### C MP, LIPID #### [facility] [address] [address] [address] Ricky Valenzuela Urea nitrogen/Creatinine [Mass ratio] 13.7 mg/mg Normal [facility] Comment on above: Performed By: #### C MP, LIPID #### [facility] [address] [address] [address] Ricky Valenzuela POINT OF CARE GLUCOSEon 06-12 Glucose [Mass/Vol] 176 mg/dL Critically high 74-106 [facility] Comment on above: Performed By: #### P OCGLUC #### [facility] [address] [place] [address] Dr. Ricky Valenzuela Vital Signs Date Time Vital Sign Value Performing Clinician Facility 03-03-2024 10: Body height 157.5 cm Sonam Drake [employer]URN[employer]URE [employer]ER Work Phone: [facility] 03-03-2024 10:050 Body mass index (BMI) [Ratio] 39.51 kg/m2 Sonam Princek FURNITURE [employer]ER Work Phone: [facility] 03-03-2024 10:050 Body temperature 97.2 [degF] Sonam Drake FURNITURE [employer]ER Work Phone: [facility] 03-03-2024 10:050 Body weight 97.98 kg Sonam Drake FURNITURE ST[employer]ER Work Phone: [facility] 03-03-2024 10:13-0500 Diastolic blood pressure 76 mm[Hg] Sonam Valenciatrick FURNITURE STAINER Work Phone: [facility] 03-03-2024 10:13-0500 Heart rate 84 /min Sonam Riverpatrick FURNITURE [employer]ER Work Phone: [facility] 03-03-2024 10:13-0500 Respiratory rate 16 /min Sonam Riverpatrick FURNITURE ST[employer]ER Work Phone: [facility] 03-03-2024 10:13-0500 SaO2% (BldA) [Mass fraction] 96 % Sonam Valenciatrick FURNITURE ST[employer]ER Work Phone: [facility] 03-03-2024 10:13-0500 Systolic blood pressure 120 mm[Hg] Sonam Riverpatrick FURNITURE ST[employer]ER Work Phone: [facility] 12-31-2023 10:06-0500 Body height 157.5 cm Sivan Solo DO Work Phone: [facility] 12-31-2023 10:06-0500 Body mass index (BMI) [Ratio] 39.14 kg/m2 Sivan Solo DO Work Phone: [facility] 12-31-2023 10:06-0500 Body weight 97.07 kg Sivan Solo DO Work Phone: [facility] 12-31-2023 10:06-0500 Diastolic blood pressure 72 mm[Hg] Sivan Solo DO Work Phone: [facility] 12-31-2023 10:06-0500 Heart rate 95 /min Sivan Solo DO Work Phone: [facility] 12-31-2023 10:06-0500 SaO2% (BldA) [Mass fraction] 97 % Sivan Solo DO Work Phone: [facility] 12-31-2023 10:06-0500 Systolic blood pressure 118 mm[Hg] Sivan Solo DO Work Phone: [facility] 12-30-2023 10:46-0500 Body mass index (BMI) [Ratio] 40.06 kg/m2 Sonam Drake FURNITURE [employer]ER Work Phone: [facility] 12-30-2023 10:46-0500 Body weight 99.34 kg Sonam Drake FURNITURE ST[employer]ER Work Phone: [facility] 12-30-2023 10:46-0500 Diastolic blood pressure 74 mm[Hg] Sonam Drake FURNITURE [employer]ER Work Phone: [facility] 12-30-2023 10:46-0500 Heart rate 97 /min Sonam Drake FURNITURE [employer]ER Work Phone: [facility] 12-30-2023 10:46-0500 SaO2% (BldA) [Mass fraction] 98 % Sonam Drake FURNITURE ST[employer]ER Work Phone: [facility] 12-30-2023 10:46-0500 Systolic blood pressure 98 mm[Hg] Sonam Drake FURNITURE ST[employer]ER Work Phone: [facility] 10-03-2023 10:07-0400 Body height 157.5 cm Sonam Drake FURNITURE ST[employer]ER Work Phone: [facility] 10-03-2023 10:07-0400 Body mass index (BMI) [Ratio] 39.32 kg/m2 Sonam Drake FURNITURE [employer]ER Work Phone: [facility] 10-03-2023 10:07-0400 Body temperature 97.5 [degF] Sonam Drake FURNITURE [employer]ER Work Phone: [facility] 10-03-2023 10:07-0400 Body weight 97.52 kg Sonam Drake FURNITURE [employer]ER Work Phone: [facility] 10-03-2023 10:07-0400 Diastolic blood pressure 70 mm[Hg] Sonam Drake FURNITURE [employer]ER Work Phone: [facility] 10-03-2023 10:07-0400 Heart rate 107 /min Sonam Princek [employer]URNITURE [employer]ER Work Phone: [facility] Comment on above: 97% O2 10-03-2023 10:07-0400 Systolic blood pressure 90 mm[Hg] Sonam Valenciatrick FURNITURE ST[employer]ER Work Phone: [facility] 01-18-2023 09:10-0500 Body height 156.21 cm Elle Hendricks Other [facility] Other 01-18-2023 09:10-0500 Body mass index (BMI) [Ratio] 42.82 kg/m2 Elle Ruthie Other [facility] Other 01-18-2023 09:10-0500 Body temperature 98.2 [degF] Elle Ruthie Other [facility] Other 01-18-2023 09:10-0500 Body weight 104.51 kg Elle Ruthie Other [facility] Other 01-18-2023 09:10-0500 Diastolic blood pressure 92 mm[Hg] Elle Ruthie Other [facility] Other 01-18-2023 09:10-0500 Respiratory rate 18 /min Elle Ruthie Other [facility] Other 01-18-2023 09:10-0500 SaO2% (BldA) [Mass fraction] 97 % Elle Ruthie Other [facility] Other 01-18-2023 09:10-0500 Systolic blood pressure 145 mm[Hg] Elle Ruthie Other [facility] Other Encounters Encounter Date Encounter Type Care Provider Facility Start: 03-03-2024 End: 03-03-2024 Bamboo flowsheet Sonam Riverpatrick FURNITURE [employer]ER Work Phone: [facility] Start: 03-03-2024 End: 03-03-2024 Bamboo flowsheet Sonam Drake [employer]URNITURE [employer]ER Work Phone: [facility] Start: 03-03-2024 End: 03-03-2024 Office outpatient visit 10 minutes Sonam Drake [employer]URNITURE [employer]ER Work Phone: [facility] Comment on above: Upper respiratory in fection with cough and congestion (Primary Dx); Lumbar back pain; Migraine with aura and without status migrainosus, not intractable ([facility]); Type 2 diabetes mellitus with diabetic microalbuminuria, without long-term current use of insulin ([facility]); Diabetic polyneuropathy associated with type 2 diabetes mellitus ([facility]); Other hyperlipidemia ([facility]) Start: 01-30-2024 End: 01-30-2024 Refill Jolly Castaneda MA [facility] Comment on above: Lumbar back pain (Pr imary Dx); Type 2 diabetes mellitus with diabetic microalbuminuria, without long-term current use of insulin ([facility]) Start: 01-14-2024 End: 01-14-2024 Refill Jolly Castaneda MA [facility] Comment on above: Lumbar back pain Start: 12-31-2023 End: 12-31-2023 Clinisync Result Encounter Sonam Riverpatrick [employer] Work Phone: [facility] Unsolicited Start: 12-31-2023 End: 12-31-2023 Clinisync Result Encounter Sonam Mansfieldzpatrick [employer]URNITURE [employer]ER Work Phone: [facility] Unsolicited Start: 12-31-2023 End: 12-31-2023 Office consultation new/estab patient 60 min Sivan Villegas DO Work Phone: [facility] Comment on above: JANETT (obstructive sle ep apnea) (Primary Dx); Hypersomnia; Snoring; Primary insomnia; Tobacco abuse Start: 12-31-2023 End: 12-31-2023 ambulatory SIVAN VILLEGAS Not Available Start: 12-30-2023 End: 12-30-2023 Bamboo flowsheet Sonam Drake FURNITURE [employer]ER Work Phone: [facility] Start: 12-30-2023 End: 12-30-2023 Bamboo flowsheet Sonam Drake FURNITURE [employer]ER Work Phone: [facility] Start: 12-30-2023 End: 12-30-2023 Office outpatient visit 15 minutes Sonam Drake FURNITURE [employer]ER Work Phone: [facility] Comment on above: Type 2 diabetes cory itus with diabetic microalbuminuria, without long-term current use of insulin ([facility]) (Primary Dx); Essential hypertension; Other hyperlipidemia ([facility]); Snoring; Mixed urge and stress incontinence Start: 12-30-2023 End: 12-30-2023 ambulatory SONAM DRAKE Not Available Start: 12-17-2023 End: 12-17-2023 Refill Jolly Castaneda MA [facility] Comment on above: Migraine with aura a nd without status migrainosus, not intractable ([facility]); Diabetic polyneuropathy associated with type 2 diabetes mellitus ([facility]) Start: 12-17-2023 End: 12-18-2023 Refill Sonam Drake FURNITURE [employer]ER Work Phone: [facility] Comment on above: Gout, unspecified ca use, unspecified chronicity, unspecified site Start: 11-04-2023 End: 11-04-2023 Refill Stiven Omalley MA [facility] Comment on above: Gout, unspecified ca use, unspecified chronicity, unspecified site Start: 11-01-2023 End: 11-02-2023 Refill Stiven Omalley MA [facility] Comment on above: Diabetic polyneuropa thy associated with type 2 diabetes mellitus ([facility]) Start: 10-04-2023 ambulatory Facility:[facility] [facility] Start: 10-03-2023 End: 10-03-2023 Bamboo flowsheet Sonam Drake FURNITURE STAINER Work Phone: [facility] Start: 10-03-2023 End: 10-03-2023 Bamboo flowsheet Sonam Drake FURNITURE STAINER Work Phone: [facility] Start: 10-03-2023 End: 10-03-2023 ambulatory SONAM DRAKE Not Available Start: 10-03-2023 End: 10-03-2023 Office outpatient visit 25 minutes Sonam Drake FURNITURE STAINER Work Phone: [facility] Comment on [...] incontinence; Snoring Start: 08-22-2023 End: 08-22-2023 ambulatory SHAIKH MARICEL Not Available Start: 08-05-2023 End: 08-05-2023 ambulatory CRISTINA FAWWAD Not Available Start: 07-04-2023 End: 07-04-2023 ambulatory CRISTINA FAWWAD Not Available Start: 05-02-2023 End: 05-02-2023 ambulatory CRISTINA FAWWAD Not Available Start: 04-30-2023 End: 04-30-2023 ambulatory [facility] Work Phone: Start: 04-30-2023 End: 04-30-2023 Patient encounter procedure [facility] Work Phone: Start: 03-21-2023 Orders Only Shaikh Maricel HOLLIS Work Phone: [facility] Comment on above: Diabetic polyneuropa thy associated with type 2 diabetes mellitus ([facility]) (Primary Dx) Start: 03-19-2023 End: 03-19-2023 ambulatory Ana Luisa Curtis Other [facility] Other Start: 03-19-2023 Office outpatient vi sit 15 minutes Ana Luisa Calvey [facility] Start: 02-25-2023 End: 02-25-2023 ambulatory ALICIA GARCIA Not Available Start: 01-29-2023 End: 01-29-2023 ambulatory SHAIKH MARICEL Not Available Start: 01-23-2023 End: 01-23-2023 ambulatory Ana Luisa Curtis Other [facility] Other Start: 01-23-2023 Office outpatient vi sit 15 minutes Ana Luisa Calvey [facility] Start: 01-18-2023 End: 01-18-2023 ambulatory Elle Hendricks Other [facility] Other Start: 01-18-2023 Office outpatient vi sit 15 minutes Ellesasha Hendricks [facility] Start: 09-19-2022 End: 09-19-2022 ambulatory Ana Luisa Curtis Other [facility] Other Start: 09-19-2022 Telephone encounter Ana Luisa Curtis [facility] Start: 07-12-[address] JONATHAN EDWARDS Facili ty:[facility]1 Start: 06-07-2022 End: 06-08-[address] JONATHAN EDWARDS Facility:[facility]1 Start: 05-02-2022 End: 05-02-2022 ambulatory Ana Luisajesus Curtis Other [facility] Other Start: 05-02-2022 Office outpatient ne w 30 minutes Ana Luisa Julianoey [facility] Start: 04-12-2022 End: 04-13-[address] JONATHAN EDWARDS Facility:[facility] Start: 03-08-2022 End: 03-09-[address] JONATHAN EDWARDS Facility:[facility] Start: 02-16-2022 End: 02-17-[address] JONATHAN EDWARDS Facility:[facility] Start: 02-09-2022 End: 02-10-[address] RICARDO HOLM . Facility:[facility] Start: 11-16-2021 End: 11-17-[address] JONATHAN EDWARDS Facility:[facility] Start: 11-01-2021 End: 11-02-2021 ambulatory CRYS PIERCE . Facility:[facility] Start: 08-30-2021 End: 08-31-2021 ambulatory [facility] Start: 08-30-2021 End: 08-30-2021 Subsequent hospital visit by physician [facility] DO Work Phone: [facility] Comment on above: Routine cervical sme ar Start: 08-16-2021 Encounter for genera l adult medical examination without abnormal findings DR RICARDO HOLM . [facility] Start: 08-09-2021 End: 08-10-2021 Encounter [...] ALL CBC WITH AUTO DIFF Sonam Drake FURNITURE ST[employer]ER Work Phone: Start: 03-20-2023 Mammography Shaikh Marie calero MD Work Phone: Start: 08-30-2021 Microscopic observat ion [Identifier] in Cervix by Cyto stain [facility] DO Work Phone: Plan of Treatment Date Care Activity Detail Author Start: 03-28-2026 Screening for malign ant neoplasm of colon [facility] Start: 03-08-2026 Screening for malign ant neoplasm of colon [facility] Start: 12-30-2024 Urine screening for protein Diabetes: Urine Protein Screening [facility] Start: 08-30-2024 Screening for malign ant neoplasm of cervix [facility] Start: 07-26-2024 Urine screening for protein Diabetes: Urine Protein Screening [facility] Start: 03-30-2024 End: 03-30-2024 Patient encounter procedure 03/30/2024 11:05 AM EST Office Visit [facility] [address] [place] [phone] Alicia Garcia MD [address] [place] [address] [facility] Start: 03-26-2024 End: 03-26-2024 Patient encounter procedure 03/26/2024 2:00 PM EST Office Visit [facility] [address] [place] [address] Sonam Drake, FURNITURE STAINER [address] [place] [address] [facility] Start: 03-24-2024 End: 03-24-2024 Patient encounter procedure [facility] Start: 03-20-2024 Screening for malign ant neoplasm of breast Mammogram [facility] Start: 02-27-2024 End: 02-27-2024 Patient encounter procedure 02/27/2024 11:35 AM EST Office Visit [facility] [address] [place] [phone] Alicia Garcia MD [address] [place] [address] [facility] Start: 02-25-2024 End: 02-25-2024 Patient encounter procedure 02/25/2024 3:30 PM EST Office Visit [facility] [address] [place] [address] Sonam Drake, RONALDO [address] [facility] [place] [address] [facility] Start: 02-12-2024 Glaucoma screening Diabetes: R etinopathy Screening [facility] Start: 01-25-2024 Hemoglobin A1c measurement Diabetes: Hemoglobin A1C [facility] Start: 12-31-2023 End: 12-30-2024 Polysomnography Polysomnography Sleep Center Routine JANETT (obstructive sleep apnea) Expected: 12/31/2023 (Approximate), Expires: 12/30/2024 [facility] Work Phone: Comment on above: Expected: 12/31/2023 (Approximate), Expires: 12/30/2024 Start: 12-31-2023 End: 12-31-2023 Patient encounter procedure 12/31/2023 10:00 AM EST Office Visit [facility] [address] [place] [phone] Sivan Villegas, [address] [place] [address] [facility] [address] [facility] Start: 12-30-2023 End: 12-29-2024 CBC W Auto Differential panel - Blood CBC and differential Lab Routine Type 2 diabetes mellitus with diabetic microalbuminuria, without long-term current use of insulin ([facility]/HCC) Essential hypertension Expected: 12/30/2023 (Approximate), Expires: 12/29/2024 [facility] Comment on above: Expected: 12/30/2023 (Approximate), Expires: 12/29/2024 Start: 12-30-2023 End: 12-29-2024 Comprehensive metabolic 2000 panel - Serum or Plasma Comprehensive metabolic panel Lab Routine Type 2 diabetes mellitus with diabetic microalbuminuria, without long-term current use of insulin (CMS/HCC) Essential hypertension Expected: 12/30/2023 (Approximate), Expires: 12/29/2024 [facility] Comment on above: Expected: 12/30/2023 (Approximate), Expires: 12/29/2024 Start: 12-30-2023 End: 12-29-2024 Hemoglobin A1c/Hemoglobin.total in Blood Hemoglobin A1c Lab Routine Type 2 diabetes mellitus with diabetic microalbuminuria, without long-term current use of insulin ([facility]) Expected: 12/30/2023 (Approximate), Expires: 12/29/2024 [facility] Comment on above: Expected: 12/30/2023 (Approximate), Expires: 12/29/2024 Start: 12-30-2023 End: 12-30-2023 Patient encounter procedure 12/30/2023 10:30 AM EST Office Visit [facility] [address] [place] [phone] Sonam Drake NP [address] [place] [phone] [facility] Start: 11-04-2023 End: 11-04-2023 Patient encounter procedure 11/04/2023 2:30 PM EDT Office Visit [facility] [address] [place] [address] Sivan Villegas DO [address] [place], [place] [phone] [facility] [address] Start: 10-13-2023 Influenza vaccination Influenza Vacc ine (#1) [facility] Start: 08-11-2023 Influenza vaccination Influenza Vacc ine (#1) [facility] Comment on above: Postponed from 10/12 (Patient Refused) Start: 05-02-2023 End: 05-02-2023 Patient encounter procedure 05/02/2023 2:00 PM EDT Office Visit [facility] [address] [place] [phone] Shaikh Connelly MD [address] [place] [address] [facility] Start: 02-17-2023 Hemoglobin A1c measurement Diabetes: Hemoglobin A1C [facility] Start: 09-04-2022 End: 09-04-2022 Patient encounter procedure 09/04/2022 Office Visit Obstetrics and Gynecology Radha Barclay, GUM PULLER - CNM [address] [place] [address] [facility]ST[facility]OLOG[facility] Part of [facility] Start: 10-12-2021 Influenza vaccination Flu vaccine (# 1) [facility] Start: 10-21-2013 Screening for malign ant neoplasm of breast Breast cancer screen [facility] Start: 10-21-2013 Shingles vaccine (1 of 2) [place] g[place] vaccine (1 of 2) [facility] Start: 10-21-2008 Screening for malign ant neoplasm of colon [facility] Start: 2003 Lipid panel Lipids [facility] Start: 10-21-1998 Diabetes screen Diabetes screen [facility] Start: 10-21-1993 Screening for malign ant neoplasm of cervix [facility] Start: 10-21-1982 DTaP/Tdap/Td vaccine (1 - Tdap) DTaP/Tdap/Td vaccine (1 - Tdap) [facility] Start: 10-21-1982 Urine screening for protein Diabetes: Urine Protein Screening [facility] Start: 10-21-1981 Hepatitis C screening Hepatitis C sc reen [facility] Start: 10-21-1978 HIV screening HIV screen [facility] Start: 1975 Depression Screen Depression Screen [facility] Start: 04-20-1964 COVID-19 Vaccine (#1) COVID-19 Vacci ne (#1) [facility] Start: 1963 Screening for malign ant neoplasm of colon [facility] End: 08-30-2021 Cytopathology procedure, preparation of smear, genital source [facility] SME[facility] Lab Routine Routine cervical smear 1 Occurrences starting 08/30/2021 until 08/30/2021 [facility] Work Phone: Comment on above: 1 Occurrences starti ng 08/30/2021 until 08/30/2021 Microalbumin/Creatin ine panel in random Urine Microalbumin / creatinine urine ratio Lab Routine Type 2 diabetes mellitus with diabetic microalbuminuria, without long-term current use of insulin ([facility]) Essential hypertension Ordered: 12/30/2023 [facility] Work Phone: Comment on above: Ordered: 12/30/2023 Immunizations Immunization Date Immunization Notes Care Provider Tima garcia 01-14-2017 influenza, injectabl e, quadrivalent, preservative [facility] 01-14-2017 influenza virus vaccine, unspecified formulation Sonam Drake 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 2012 Medicare [id number] 1963 Unknown [id number] 2.16.8 40.1.860546.3.579.2.173 1963 Unknown [id number] 2.16.84 0.1.128238.3.579.2.593 1963 Unknown [id number] 2.16.84 0.1.948423.3.579.2.593 1963 Unknown [id number] 2.16.84 0.1.376979.3.579.2.593 1963 Unknown [id number] 2.16.84 0.1.201101.3.579.2.593 1963 Unknown [id number] 2.16.84 0.1.125394.3.579.2.593 1963 Unknown [id number] 2.16.84 0.1.439821.3.579.2.593 1963 Unknown [id number] 2.16.84 0.1.875581.3.579.2.593 1963 Unknown [id number] 2.16.84 0.1.488767.3.579.2.593 1963 Unknown [id number] 2.16.84 0.1.020960.3.579.2.593 1963 Unknown [id number] 2.16.84 0.1.734443.3.579.2.593 1963 Unknown [id number] 2.16.84 0.1.336714.3.579.2.593 1963 Unknown [id number] 2.16.84 0.1.507019.3.579.2.593 1963 Unknown [id number] 2.16.84 0.1.377449.3.579.2.593 1963 Unknown [id number] 2.16.84 0.1.151872.3.579.2.593 1963 Unknown [id number] 2.16.84 0.1.458731.3.579.2.593 1963 Unknown [id number] 2.16.84 0.1.059835.3.579.2.593 1963 Unknown [id number] 2.16.84 0.1.547952.3.579.2.1259 1963 Unknown [id number] 2.16.84 0.1.821931.3.579.2.1259 1963 Unknown [id number] 2.16.84 0.1.347445.3.579.2.1259 1963 Unknown [id number] 2.16.84 0.1.875756.3.579.2.1259 1963 Unknown [id number] 2.16.84 0.1.044486.3.579.2.1259 1963 Unknown [id number] 2.16.84 0.1.966932.3.579.2.1259 1963 Unknown [id number] 2.16.84 0.1.133487.3.579.2.1259 1963 Unknown [id number] 2.16.84 0.1.131564.3.579.2.1259 1963 Unknown [id number] 2.16.840 .1.730429.3.579.2.1259 1959 Medicare [id number] 1.2.840.665970.1.13.239.2.7.3.891285.315 1959 Unknown [id number] 1.2.840.442092.1.13.239.2.7.3.148387.315 1959 Unknown [id number] 2.16.8 40.1.397351.19 Medicare Medicare [id number] Self-pay Self Pay [id number] Social History Date Type Detail Facility Start: 08-30-2021 End: 12-31-2023 Tobacco smoking status PRIS Smokes tobacco daily [facility] Phone: History of tobacco use Cigarette Smoker [facility] [employer] Phone: Start: 08-30-2021 End: 12-31-2023 Tobacco use and exposure Smokeless tobacco non-user [facility] Phone: Start: 08-30-2021 Alcohol intake Current drinke r of alcohol (finding) [facility] Phone: Start: 08-30-2021 History SDOH Alcohol Comment occasional [facility] Phone: Start: 1965 Sex Assigned At Not on file B [facility] [employer] Phone: Start: 08-20-2021 End: 08-30-2021 Exposure to SARS-CoV-2 (event) Not sure [facility] Start: 02-25-2023 End: 10-02-2023 Sex Assigned At [facility] Start: 01-29-2023 End: 08-05-2023 Tobacco smoking status NHIS Ex-smoker [facility] History of tobacco use Current smoker [facility] Start: 01-29-2023 End: 10-02-2023 Cigarettes smoked current (pack per day) - Reported 0.5 [facility] Start: 02-25-2023 End: 03-03-2024 Alcohol intake Lifetime non-drinker (finding) [facility] Start: 1965 Sex Assigned At Female F [facility] History of tobacco use Passive smoker [...] Equipment Origin al Text Equipment Identifier Dates [id number] Start: 06-08-2021 Clinical Notes 06-20-2021 to 03-03-2024 Sonam Drake NP - 03/03/2024 11:35 AM Curt Drake NP - 03/03/2024 10:00 AM ESTPatient InstructionsTelephone Encounter - Jolly Castaneda MA - 01/30/2024 10:38 AM EST Note Date & Type Note Facility 03-03-2024 History of Presen t illness Narrative Associated Problem(s): Upper respiratory infection with cough and congestion Productive cough- yellow phlegm/Sinus congestion/Runny nose/Headaches/Malaise X1 week. Will treat for upper respiratory infection with steroids, Augmentin, Flonase, and tessalon Perles. Advised pt to follow up if symptoms worsen or do not improve within 1 week.. Images from the original note were not included. Subjective Patient ID: Karina De Oliveira is a 58 y.o. female who presents for Cough and Nasal Congestion. HPI Productive cough- yellow phlegm Sinus congestion Runny nose Headaches Malaise X1 week Denies: Sore throat Earache Shortness of breath N/V/D Fever TX: Mucinex, coricidin hbp, Review of Systems Constitutional: Positive for fatigue. Negative for activity change, appetite change, chills, diaphoresis, fever and unexpected weight change. HENT: Positive for congestion, rhinorrhea and sinus pressure. Negative for ear pain, sinus pain, sneezing, sore throat, trouble swallowing and voice change. Eyes: Negative for discharge, redness, itching and visual disturbance. Respiratory: Positive for cough. Negative for chest tightness, shortness of breath and wheezing. Cardiovascular: Negative for chest pain, palpitations and leg swelling. Gastrointestinal: Negative for abdominal distention, abdominal pain, blood in stool, constipation, diarrhea and vomiting. Musculoskeletal: Positive for myalgias. Negative for arthralgias, gait problem and joint swelling. Neurological: Positive for headaches. Negative for dizziness. Objective Physical Exam Constitutional: Appearance: Normal appearance. HENT: Head: Normocephalic. Right Ear: External ear normal. Left Ear: External ear normal. Nose: Congestion and rhinorrhea present. Mouth/Throat: Mouth: Mucous membranes are moist. Pharynx: Oropharynx is clear. Eyes: Pupils: Pupils are equal, round, and reactive to light. Cardiovascular: Rate and Rhythm: Normal rate and regular rhythm. Pulses: Normal pulses. Pulmonary: Effort: Pulmonary effort is normal. Breath sounds: Normal breath sounds. Abdominal: General: Abdomen is flat. Bowel sounds are normal. Palpations: Abdomen is soft. Musculoskeletal: General: Normal range of motion. Cervical back: Normal range of motion. Skin: General: Skin is warm. Neurological: Mental Status: She is alert and oriented to person, place, and time. Psychiatric: Mood and Affect: Mood normal. Behavior: Behavior normal. Assessment/Plan Problem List Items Addressed This Visit Type 2 diabetes mellitus with diabetic microalbuminuria, without long-term current use of insulin (CMS/HCC) Relevant Medications metFORMIN (Glucophage) 500 MG tablet Continuous Glucose Insert Cutter (Dexcom G7 Insert Cutter) device Continuous Glucose Sensor (Dexcom G7 Sensor) misc Upper respiratory infection with cough and congestion - Primary Productive cough- yellow phlegm/Sinus congestion/Runny nose/Headaches/Malaise X1 week. Will treat for upper respiratory infection with steroids, Augmentin, Flonase, and tessalon Perles. Advised pt to follow up if symptoms worsen or do not improve within 1 week.. Relevant Medications amoxicillin-clavulanate (Augmentin) 875-125 MG tablet predniSONE (Deltasone) 20 MG tablet fluticasone (Flonase) 50 MCG/ACT nasal spray benzonatate (Tessalon) 200 MG capsule Migraine with aura and without status migrainosus, not intractable (CMS/HCC) Relevant Medications divalproex (Depakote) 500 MG EC tablet Other hyperlipidemia (CMS/HCC) Relevant Medications rosuvastatin (Crestor) 20 MG tablet Lumbar back pain Relevant Medications diclofenac (Voltaren) 75 MG EC tablet Other Visit Diagnoses Diabetic polyneuropathy associated with type 2 diabetes mellitus (CMS/HCC) Relevant Medications pregabalin (Lyrica) 75 MG capsule documented in this encounter [facility] 03-03-2024 Instructions Sonam Drake NP - 03/03/2024 10:00 AM EST Continue to rest, drink plenty of fluids, and eat a well-balance diet. Resume normal activity. AVOID anything strenuous until you are feeling better. Treatment: Start and finish antibiotic and steroids as prescribed. If you have high blood pressure issues use coricidin hbp Zyrtec allergy medication once daily. Flonase nasal spray 1-2 squirts in each nostril at night. Tylenol for fever and body aches. Tessalon Perles for cough Vitamins: Vitamin C 1,000mg per day. Vitamin D3 2,000 international unit(s) per day. Zinc 25mg per day. WORSENING SYMPTOMS, CHEST PAIN, OR SHORTNESS OF BREATH, GO TO THE NEAREST EMERGENCY DEPARTMENT. Increase protein intake to at least 30g per day Increase water intake- or maintain fluid intake Try increasing caloric intake- goal around 1500 calories per day. documented in this encounter [facility] 01-30-2024 Telephone encount er Note GIOVANNA:12/30/2023 NOV:03/26/2024 [facility] 01-30-2024 Miscellaneous Notes Formattin g of this note might be different from the original. GIOVANNA:12/30/2023 NOV:03/26/2024 documented in this encounter [facility] 01-14-2024 Telephone encount er Note GIOVANNA:12/30/2023 NOV:03/26/2023 [facility] 01-14-2024 Miscellaneous Notes Formattin g of this note might be different from the original. GIOVANNA:12/30/2023 NOV:03/26/2023 documented in this encounter [facility] 12-31-2023 History of Presen t illness Narrative Images from the original note were not included. No chief complaint on file. Subjective SLEEP CONSULT REFERRAL: Snoring, concern for JANETT, needing sleep study - labs @ [facility]; referral received from Sonam Drake CNP. [...] was counseled on the risks of stroke, [place], and sudden with JANETT, along with the [...] clinic: 2 months documented in this encounter [facility] 12-30-2023 History of Presen t illness Narrative [...] R ALBUMIN GLOBULIN RATIO 0.8 Resulting Agency H [facility] DMII: Metformin Bid and Ozempic Most [...] First appointment tomorrow. documented in this encounter [facility] 12-30-2023 Instructions Sonam Drake NP - 12/30/2023 10:30 AM EST FASTING labs ordered. Nothing to eat or drink for 12 hours prior to blood draw. Water and black coffee ok. Call if you need anything! documented in this encounter [facility] 12-17-2023 Telephone encount er Note GIOVANNA:10/03/2023 NOV:12/30/2023 [facility] 12-17-2023 Miscellaneous Notes Formattin g of this note might be different from the original. GIOVANNA:10/03/2023 NOV:12/30/2023 documented in this encounter [facility] 10-03-2023 History of Presen t illness Narrative Associated Problem(s): Snoring Screening for JANETT- Referral sent to [facility] [place] Associated Problem(s): Morbid (severe) obesity due to [...] R ALBUMIN GLOBULIN RATIO 0.8 Resulting Agency [facility] DMII: Metformin Bid and Ozempic Most recent [...] for JANETT- Referral sent to [facility] [place] Other Visit Diagnoses Type 2 diabetes mellitus without complication, without long-term current use of insulin (CMS/[facility]) Relevant Medications semaglutide (Ozempic, 1 MG/DOSE,) 4 MG/3ML solution pen-injector Diabetic polyneuropathy associated with type 2 diabetes mellitus (CMS/HCC) Relevant Medications pregabalin (Lyrica) 75 MG capsule documented in this encounter [facility] 10-03-2023 Instructions Sonam Drake NP - 10/03/2023 [...] you need anything! documented in this encounter [facility] 03-19-2023 Evaluation note Encounter Date Diagnosis Assessment [...] Mar, Left hand pain (ICD-10 - M79.642) [facility] Other 12-13-2023 Evaluation note* Encounter Date Diagnosis [...] noted. Patient will f/u in 4 weeks. [facility] Other 12-08-2023 Evaluation note* Encounter Date Diagnosis [...] hand x-ray that was performed at [facility] which revealed degenerative changes in the hand as well as a remote avulsion fracture of the thumb. Patient states her family doctor is treating her for gout in her hand. Jan, History of gout (ICD-10 - Z87.39) Jan, Other Gout material w as printed [facility] Other 08-09-2023 Evaluation note* Encounter Date Diagnosis Assessment Notes Treatment Notes Treatment Clinical Notes Sep, Right wrist pain (ICD-10 - M25.531) [facility] Other 04-27-2023 NoteCONSULTATION CONSULTATION DATE: 06/07/2022 TO: [...] our patients to inform us about any [id number] medications or herbal remedies/nutritional supplements/alternative remedies. 2. [...] options with their primary care provider.[facility] [id number] Evaluation note * Encounter Date Diagnosis Assessment [...] understanding and is agreeable to treatment plan. [facility] Other 01-26-2023 NoteCONSULTATION PROCEDURE DATE: 03/08/2022 PREOPERATIVE [...] be followed up in the clinic.[facility] [id number] NotePROCEDURE: XR KNEE LT 4V or > [...] Electronically authenticated by: PATTIE SALTER Date: 2022-02-16 11:29[facility]12-30-2022 NoteCONSULTATION CONSULTATION DATE: 02/09/2022 HISTORY OF [...] today. Patient agrees with this plan.[facility] [id number] NotePROCEDURE: XR WRIST RT MIN 3 V COMPARISON: None. HISTORY: Injury of right wrist FINDINGS: BONES:No acute fracture or dislocation. Corticated bone fragment identified along the first carpometacarpal joint [degenerative in nature SOFT TISSUES:Moderate diffuse soft tissue swelling EFFUSION:None visible. OTHER: Negative. IMPRESSION: Soft tissue swelling, no acute fracture Electronically authenticated by: RYAN GOLDMAN Date: 2021-11-16 18:59[facility] [id number] NoteCONSULTATION CONSULTATION DATE: 11/01/2021 HISTORY OF PRESENT [...] indicated. Patient agrees with this plan.[facility] [id number] NoteCONSULTATION PROCEDURE DATE: 11/01/2021 PRE AND POSTOPERATIVE [...] be followed up in the clinic.[facility] [id number] NoteCONSULTATION PROCEDURE DATE: 08/09/2021 PREOPERATIVE DIAGNOSIS: Bilateral [...] be followed up in the clinic. [facility] Signed and Approved by: CRYS PIERCE . 08/10/2021 13:37:00[facility]06-08-2022 NoteCONSULTATION CONSULTATION DATE: 07/19/2021 HISTORY OF [...] Patient acknowledges and all questions answered. [facility] Signed and Approved by: CRYS PIERCE . 07/20/2021 10:33:00[facility]05-25-2022 NotePROCEDURE: XR FOOT RT MIN 3 [...] Electronically authenticated by: PATTIE SALTER Date: 2021-07-05 11:11[facility]05-10-2022 NoteCONSULTATION CONSULTATION DATE: 06/20/2021 CHIEF COMPLAINT: [...] to proceed. CC: Jonathan Edwards M.D. [facility] Signed and Approved by: DR RICARDO HOLM . 06/27/2021 10:40:00[facility] Diagnosis Routine cervical smear Screening for malignant neoplasm of the cervix documented in this encounter [facility] Work Phone: evaluation note* Diagnosis Diabetic polyneuropathy associated with type 2 diabetes mellitus (CMS/HCC)- Primary documented in this encounter [facility] HealthcareEvaluation noteNo assessment information availableMagruder Hospital Work Phone: Evaluation note* Diagnosis Encounter [...] diabetes mellitus (CMS/HCC) documented in this encounter [facility] HealthcareEvaluation note* Diagnosis Encounter for screening [...] chronicity, unspecified site documented in this encounter [facility] HealthcareEvaluation note* Diagnosis Encounter for screening [...] long-term current use of insulin (CMS/[facility])- Primary Essential hypertension Unspecified essential hypertension [...] Tobacco use disorder documented in this encounter [facility] HealthcareEvaluation note* Diagnosis Encounter for screening [...] and stress (male)(female) documented in this encounter [facility] HealthcareEvaluation note* Diagnosis Encounter for screening [...] aura and without status migrainosus, not intractable ([facility]) Hospital discharge follow-up Other follow-up examination Type 2 diabetes mellitus with diabetic microalbuminuria, without long-term current use of insulin ([facility])- Primary Other hyperlipidemia ([facility]/HCC) Essential hypertension Unspecified essential hypertension Bilateral lower extremity edema Lumbar back pain- Primary Lumbago Hospital discharge follow-up Other follow-up examination Essential hypertension- Primary Unspecified essential hypertension Type 2 diabetes mellitus with diabetic microalbuminuria, without long-term current use of insulin ([facility]) Morbid (severe) obesity due to excess calories (E66.01) Other hyperlipidemia (CMS/HCC) Lumbar back pain Lumbago Type 2 diabetes mellitus without complication, without long-term current use of insulin ([facility]) Diabetic polyneuropathy associated with type 2 diabetes mellitus ([facility]) Mixed urge and stress incontinence Mixed incontinence urge and stress (male)(female) Snoring Other dyspnea and respiratory abnormality Encounter for long-term (current) use of high-risk medication Encounter for long-term (current) use of other medications Type 2 diabetes mellitus with diabetic microalbuminuria, without long-term current use of insulin ([facility])- Primary Essential hypertension Unspecified essential hypertension Other hyperlipidemia ([facility]) Snoring Other dyspnea and respiratory abnormality Mixed urge and stress incontinence Mixed incontinence urge and stress (male)(female) Lumbar back pain Lumbago documented in this encounter [facility]* Diagnosis Essential hypertension- Primary Unspecified essential hypertension Type 2 diabetes mellitus with diabetic microalbuminuria, without long-term current use of insulin ([facility]) Morbid (severe) obesity due to excess calories (E66.01) Other hyperlipidemia ([facility]) Lumbar back pain Lumbago Type 2 diabetes mellitus without complication, without long-term current use of insulin ([facility]) Diabetic polyneuropathy associated with type 2 diabetes mellitus ([facility]) Mixed urge and stress incontinence Mixed incontinence urge and stress (male)(female) Snoring Other dyspnea and respiratory abnormality documented in this encounter [facility]* Diagnosis Gout, unspecified cause, unspecified chronicity, unspecified site documented in this encounter [facility]* Diagnosis Diabetic polyneuropathy associated with type 2 diabetes mellitus ([facility]/HCC) documented in this encounter [facility]* [...] without long-term current use of insulin (CMS/HCC) documented in this encounter [facility] HealthcareEvaluation note* Diagnosis Encounter for screening [...] incontinence Mixed incontinence urge and stress (male)(female) Upper respiratory infection with cough and congestion- Primary Lumbar back pain Lumbago Migraine with aura and without status migrainosus, not intractable ([facility]) Type 2 diabetes mellitus with diabetic microalbuminuria, without long-term current use of insulin ([facility]) Diabetic polyneuropathy associated with type 2 diabetes mellitus ([facility]/HCC) Other hyperlipidemia ([facility]) documented in this encounter [facility] HealthcareHistory general Narrative - Reported* Type Description Date Medical History GERD (gastroesophageal reflux di sease) Medical History Migraine headache Medical History Arthritis Medical History Edema of both legs Medical History Diabetes mellitus, type 2 Medical History Chronic back pain Surgical History ablasion Surgical History back surgery Surgical History hysterectomy Surgical History tubal ligation Hospitalization History see above Depop Other Reason for referral (narrative)* Consultation (Routine) - Pending Review Specialty Diagnoses / Procedures Referred By Darren acharya Referred To Contact Neurology Diagnoses Snoring Procedures [place] OFFICE/OUTPATIENT [facility] 60 MINUTES Sonam Drake NP [address] [place] [address] Sivan Villegas DO [address] [place] [address] Referral ID Status Reason Start Date Expiration Date Visits Requested Visits Authorized [id number] Pending Review Specialty Services Required 10/03/2023 03/31/2024 1 1 Scheduling Instructions Please include OV note from today * Consultation (Routine) - Pending Review Specialty Diagnoses / Procedures Referred By Darren t Referred To Contact Urology Diagnoses Mixed urge and stress incontinence Procedures NC OFFICE/OUTPATIENT [facility] 60 MINUTES Sonam Drake NP [address] [place] [address] Skinny Villafuerte MD [address] [place] [address] Referral ID Status Reason Start Date Expiration Date Visits Requested Visits Authorized [id number] Pending Review Specialty Services Required 10/03/2023 03/31/2024 [...] Care Teams (unrecognized sec tion and content) Theater Teacher Relationship Specialty Start Date End Date Sr Jonathan Edwards, [address] [place] [address] PCP - General Family Medicine 08/30/21 Theater Teacher Relationship Specialty Start Date End Date Shaikh [...] April 30, 2023 End: April 30, 2023 Theater Teacher Relationship Specialty Start Date End Date Jose Chandler MD [address] [place] [phone] PCP - General Family Medicine 12/12/23 Sonam Drake NP [address] [place] [address] Nurse Practitioner Family Medicine 09/24/23 Theater Teacher Relationship Specialty Start Date End Date Jose Chandler MD [address] [place] [address] PCP - General Family Medicine 12/12/23 Sonam Drake NP [address] [place] [address] Nurse Practitioner Family Medicine 09/24/23 Theater Teacher Relationship Specialty Start Date End Date Jose Chandler MD [address] [place] [address] PCP - General Family Medicine 12/12/23 Sonam Drake NP [address] [place] [address] Nurse Practitioner Family Medicine 09/24/23 Theater Teacher Relationship Specialty Start Date End Date Jose Chandler MD [address] [place] [address] PCP - General Family Medicine 12/12/23 Sonam Drake NP [address] [place] [address] Nurse Practitioner Family Medicine 09/24/23 Theater Teacher Relationship Specialty Start Date End Date Jose Chandler MD [address] [place] [address] PCP - General Family Medicine 12/12/23 Sonam Drake NP [address] [place] [address] Nurse Practitioner Family Medicine 09/24/23 Theater Teacher Relationship Specialty Start Date End Date Jose Chandler MD [address] [place] [address] PCP - General Family Medicine 12/12/23 Sonam Drake NP [address] [place] [address] Nurse Practitioner Family Medicine 09/24/23 Theater Teacher Relationship Specialty Start Date End Date Jose Chandler MD [address] [place] [phone] PCP - General Family Medicine 09/24/23 Sonam Drake NP [address] [place] [address] Nurse Practitioner Family Medicine 09/24/23 Theater Teacher Relationship Specialty Start Date End Date Jose Chandler MD [address] [place] [address] PCP - General Family Medicine 09/24/23 Sonam Drake NP [address] [place] [address] Nurse Practitioner Family Medicine 09/24/23 Theater Teacher Relationship Specialty Start Date End Date Jose Chandler MD [address] [place] [address] PCP - General Family Medicine 09/24/23 Sonam Drake NP [address] [place] [address] Nurse Practitioner Family Medicine 09/24/23 Theater Teacher Relationship Specialty Start Date End Date Jose Chandler MD [address] [place] [address] PCP - General Family Medicine 09/24/23 Sonam Drake NP [address] [place] [address] Nurse Practitioner Family Medicine 09/24/23 Theater Teacher Relationship Specialty Start Date End Date Jose Chandler MD [address] [place] [address] PCP - General Family Medicine 12/12/23 Sonam Drake NP [address] [place] [address] Nurse Practitioner Family Medicine 09/24/23 Theater Teacher Relationship Specialty Start Date End Date Jose Chandler MD [address] [place] [address] PCP - General Family Medicine 12/12/23 Sonam Drake NP [address] [place] [address] Nurse Practitioner Family Medicine 09/24/23 Theater Teacher Relationship Specialty Start Date End Date Jose Chandler MD [address] [place] [address] PCP - General Family Medicine 12/12/23 Sonam Drake NP [address] [place] [address] Nurse Practitioner Family Medicine 09/24/23 INFORMATION SOURCE (unrecogn ized section and content) DATE CREATED AUTHOR 09/10/2021 [facility] DATE CREATED AUTHOR AUTHOR'S ORGANIZ ATION 06/08/2022 [facility] DATE CREATED AUTHOR AUTHOR'S ORGANIZ ATION 10/06/2023 [facility] DATE CREATED AUTHOR AUTHOR'S ORGANIZ ATION 01/01/2024 [facility] EPIC REASON FOR [...] Reason Onset Date Comments Med Refill 01/30/2024 Reason Comments Cough Nasal Congestion Goals (unrecognized section and content) Goals may [...] BE BASED ON THE PRIMARY CLINICAL RECORDS. [facility] [employer] [facility]. provides no warranty or guarantee of the accuracy or completeness of information in this document.
--- NOTE | 2024-03-04 09:19 | PM.CN ---
Consult Note: HPI Data of Consult Patient: known to practice within the last 3 years Requesting Physician: Chela Tijerina NP Primary Care Provider: SONAM LANE Consult Narrative Reason for consult: f/u Narrative: Brian Weir a pleasant 58 year old female presents for evaluation and management of chronic low back pain. pt has failed to benefit from 6 weeks of provider guided HEP/PT, tylenol, NSAIDs, heat and ice. Recently underwent right and left L4-5 L5-S1 facet RFA with >50% improvement in pain and functional ability ongoing. Pain today 04/20, pain increased with standing, walking, activity, lifting, stairs, bending, twisting, pushing, pulling. Pain improved with lying and reclining. Utilizes baclofen, diclofenac, lyrica, and percocet for pain with moderate relief without side effects. Pt disappointed she still has moderate to severe right posterior hip pain. cc:: CC: Chela Tijerina NP Review of Systems ROS Status of ROS 10 or more systems reviewed and unremarkable except as noted in history and below Musculoskeletal Reports: back pain and extremity pain PFSH PFSH Medical History Morbid obesity due to excess calories ?E66.01 - Morbid (severe) obesity due to excess calories (ICD-10) Type 2 diabetes mellitus with hyperglycemia ?E11.65 - Type 2 diabetes mellitus with hyperglycemia (ICD-10) HTN (hypertension) ?I10 - Essential (primary) hypertension (ICD-10) Lumbar spondylosis ?M47.816 - Spondylosis without myelopathy or radiculopathy, lumbar region (ICD-10) Fracture of foot ?S92.909A - Unspecified fracture of unspecified foot, initial encounter for closed fracture (ICD-10) Closed fibular fracture ?S82.409A - Unspecified fracture of shaft of unspecified fibula, initial encounter for closed fracture (ICD-10) Fracture of medial cuneiform of left foot ?S92.242A - Displaced fracture of medial cuneiform of left foot, initial encounter for closed fracture (ICD-10) Fracture of metatarsal of left foot, closed ?S92.302A - Fracture of unspecified metatarsal bone(s), left foot, initial encounter for closed fracture (ICD-10) Dislocation of foot, left, closed ?S93.305A - Unspecified dislocation of left foot, initial encounter (ICD-10) Mild protein-calorie malnutrition ?E44.1 - Mild protein-calorie malnutrition (ICD-10) Acute exacerbation of chronic low back pain ?M54.50 - Low back pain, unspecified (ICD-10) ?G89.29 - Other chronic pain (ICD-10) Migraine headache ?G43.909 - Migraine, unspecified, not intractable, without status migrainosus (ICD-10) Hyperlipidemia ?E78.5 - Hyperlipidemia, unspecified (ICD-10) Iron deficiency anemia ?D50.9 - Iron deficiency anemia, unspecified (ICD-10) Lumbar radiculopathy ?M54.16 - Radiculopathy, lumbar region (ICD-10) Chronic prescription opiate use ?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 (ICD-10) Sacroiliac joint pain ?M53.3 - Sacrococcygeal disorders, not elsewhere classified (ICD-10) Muscle spasm ?M62.838 - Other muscle spasm (ICD-10) Cervical spondylosis ?M47.812 - Spondylosis without myelopathy or radiculopathy, cervical region (ICD-10) Lumbar stenosis with neurogenic claudication ?M48.062 - Spinal stenosis, lumbar region with neurogenic claudication (ICD-10) Compression fracture of L1 vertebra ?S32.010A - Wedge compression fracture of first lumbar vertebra, initial encounter for closed fracture (ICD-10) Tubal ?O00.109 - Unspecified tubal without intrauterine (ICD-10) TMJ (dislocation of temporomandibular joint) ?S03.00XA - Dislocation of jaw, unspecified side, initial encounter (ICD-10) Upper back pain ?M54.9 - Dorsalgia, unspecified (ICD-10) Back pain ?M54.9 - Dorsalgia, unspecified (ICD-10) Neck pain ?M54.2 - Cervicalgia (ICD-10) Osteoarthritis ?M19.90 - Unspecified osteoarthritis, unspecified site (ICD-10) Obesity ?E66.9 - Obesity, unspecified (ICD-10) Heartburn ?R12 - Heartburn (ICD-10) Acid reflux ?K21.9 - Gastro-esophageal reflux disease without esophagitis (ICD-10) Diabetes ?E11.9 - Type 2 diabetes mellitus without complications (ICD-10) Smoker ?F17.200 - Nicotine dependence, unspecified, uncomplicated (ICD-10) Surgical History S/P lumbar spine operation ?Z98.890 - Other specified postprocedural states (ICD-10) H/O: hysterectomy ?Z90.710 - Acquired absence of both cervix and uterus (ICD-10) Family History Mother Family history of CHF (congestive heart failure) Family history of cancer Family history of diabetes mellitus Family history of hypertension Family history of myocardial infarction Social History Within the past year, how often did you have a drink containing alcohol: monthly or less Smoking status: Light tobacco smoker Non-prescribed substance use: denies use Previous occupational history: retired/disability Highest level of school completed/degree received: high school graduate Are you now , , , , never or living with a partner: In a typical week, how many times do you talk on the telephone with family, friends, or neighbors: 3 or more times per week How often do you get together with friends or relatives: 3 or more times per week How often do you attend orthodox or rastafari services: never Little interest or pleasure in doing things: not at all Feeling down, depressed, or hopeless: not at all Feel stressed/tense/nervous/anxious/difficulty sleeping: not at all Do you think of yourself as: straight/heterosexual Gender Identity: female Meds Home Medications and Allergies Home Medications ?Medication ?Instructions ?Recorded ?Confirmed ?Type alendronate 70 mg tablet 70 mg PO QWEEK 07/20/22 01/28/24 History allopurinol 300 mg tablet 300 mg PO DAILY 07/20/22 01/28/24 History aspirin 81 mg tablet,delayed 81 mg PO DAILY 07/20/22 01/28/24 History release (Adult Aspirin Regimen) cholecalciferol (vitamin D3) 25 1,000 unit PO DAILY 07/20/22 01/28/24 History mcg (1,000 unit) capsule diclofenac sodium 75 mg 75 mg PO BID 07/20/22 01/28/24 History tablet,delayed release divalproex 500 mg tablet,delayed 500 mg PO BID 07/20/22 01/28/24 History release (Depakote) glucosamine POu-O3-Ifxaonapz 1 tab PO DAILY 07/20/22 01/28/24 History krzysztof 1,500 mg-400 unit-100 mg tablet (Osteo Bi-Flex (5-Loxin)) lactobacillus combo no.13 1 1 cap PO DAILY 07/20/22 01/28/24 History billion cell capsule,delayed release (Probiotic Pearls Complete) multivitamin 1 tab PO DAILY 07/20/22 01/28/24 History oxycodone-acetaminophen 5 mg-325 1 tab PO DAILY PRN pain 07/20/22 01/28/24 History mg tablet prasterone (dhea) 50 mg capsule 50 mg PO DAILY 07/20/22 01/28/24 History (DHEA) famotidine 20 mg tablet 20 mg PO BID 06/08/23 01/28/24 History metformin 1,000 mg tablet 500 mg PO BID 06/08/23 01/28/24 History rizatriptan 10 mg tablet 10 mg PO Q2H PRN migraine headache 06/08/23 01/28/24 History rosuvastatin 20 mg tablet 20 mg PO DAILY 06/08/23 01/28/24 History pregabalin 75 mg capsule 75 mg PO BID 08/17/23 01/28/24 History semaglutide 1 mg/dose (4 mg/3 mL) 1 mg subcut QWEEK 08/17/23 01/28/24 History subcutaneous pen injector (Ozempic) baclofen 20 mg tablet 20 mg PO TID PRN muscle spasm #60 08/18/23 01/28/24 Rx tabs Allergies Allergy/AdvReac Type Severity Reaction Status Date / Time No Known Drug Allergies Allergy Verified 01/28/24 09:13 Exam Constitutional Documenting provider has reviewed patient's vital signs: yes Common normals: no apparent distress, oriented x3, healthy appearing, alert and well nourished General appearance: cooperative HENMT Common normals: normocephalic, hearing grossly normal bilaterally and moist oral mucous membranes Head and scalp: normocephalic Eye Common normals: PERRL Pupil: PERRL Neck & C-Spine Common normals: full ROM General: normal visual inspection Chest Common normals: inspection of chest normal Respiratory Common normals: normal respiratory effort, no retractions and no use of accessory muscles Back & Pelvis Lumbar spine/lower back: lumbar ROM normal; no pain with ROM, no lumbar spinal tenderness, no paraspinal muscle tenderness and no paraspinal muscle spasm Sacroiliac joints: SI joint(s) abnormal Other: right sij positive paris(patricks), gaenslens, thigh thrust, compression test significant pain and dysthesia over right superior gluteal nerve Neuro Common normals: oriented x3, CN's II-XII intact bilaterally, moves all extremities, no focal motor deficits, no sensory deficits noted and deep tendon reflexes 2+ bilaterally Sensorium/orientation: alert Motor exam: strength 5/5 throughout and no movement abnormalities noted Psych Common normals: mental status grossly normal, thought process normal, cooperative, affect normal, speech normal and activity/motor behavior normal Speech: normal speech Thought process: normal thought process Assessment and Plan Assessment and Plan (1) Lumbar spondylosis: (2) Unspecified mononeuropathy of right lower limb: (3) Myalgia, other site: (4) Chronic prescription opiate use: (5) Sacroiliac joint pain: (6) Lumbar stenosis with neurogenic claudication: Plan as discussed with pt and previously discussed with pt the goal of the lumbar RFAs is at least 50% improvement in pain and functional ability, which pt reports 90% on theft side and 75-80% improvement on the right side as a result of recent L4-S1 RFA. pt does have symptoms of right superior gluteal neuritis and could benefit from a right superior gluteal nerve block under fluoroscopy, would like to defer at this time due to bills/cost. Pt tolerating current medications well without side effects, no changes made. continue HEP as tolerated. f/u after injection, or 3 months
== END 2024-03-04 09:05 | disposition home or self-care (01) ==
LOC: PM 09:04
PROVIDERS: Visit Provider Nurse Practitioner
DX: M47.816 Spondylosis without myelopathy or radiculopathy, lumbar region (principal); M79.18 Myalgia, other site; Z79.891 Long term (current) use of opiate analgesic; M53.3 Sacrococcygeal disorders, not elsewhere classified; M48.062 Spinal stenosis, lumbar region with neurogenic claudication
CPT/HCPCS: G0463

== ENCOUNTER 2024-03-18 10:08 | Outpatient (OUT) | payer OTHER, MEDICARE, SELFPAY ==
--- NOTE | 2024-03-18 10:11 | MM_ITS ---
Patient Name: KARINA DE OLIVEIRA MR#: [id number] : 1965 Exam Date: 03/18/2024 Ordering Doctor: DR RADHA TRIVEDI [facility] RADIOLOGY REPORT PROCEDURE: MM TOMOSYNTHESIS SCREENING BI COMPARISON: MM TOMOSYNTHESIS SCREENING BI, 03/20/2023. MG MAMM SCREEN 3D [place] CAD, 01/31/2021. MG MAMM SCREEN [place] W CAD, 02/02/2020. MG MAMM [place] SCRN W CAD DIG, 01/22/2013. INDICATIONS: Screening for malignant neoplasm Calculator Name [facility] Breast Cancer Risk Assessment Tool 5 Year Breast Cancer Risk 1.30% Lifetime Breast Cancer Risk 6.60% Personal Breast Cancer No Personal Ovarian Cancer No Treatments None Family Cancers Grandfather-maternal with prostate cancer at age 70; Mother with skin cancer at age 71. LOCATION: [facility] BREAST COMPOSITION: There are scattered areas of fibroglandular density. FINDINGS: DIAGNOSTIC CATEGORY 2--BENIGN FINDING: RIGHT BREAST: No significant suspicious finding. Scattered benign-appearing calcifications are present. No significant change has occurred. LEFT BREAST: No significant suspicious finding. Scattered benign-appearing calcifications are present. No significant change has occurred. RECOMMENDATIONS: ROUTINE MAMMOGRAM AND CLINICAL EVALUATION IN 12 MONTHS. PLEASE NOTE: A NORMAL MAMMOGRAM DOES NOT EXCLUDE THE POSSIBILITY OF BREAST CANCER. A CLINICALLY SUSPICIOUS PALPABLE LUMP SHOULD BE BIOPSIED. Dictated by: Navid Cortes M.D. on 03/18/2024 at 14:50 Approved by: Navid Cortes M.D. on 03/18/2024 at 14:53
--- OUTSIDE RECORDS SUMMARY | 2024-03-18 10:21 | XMS_ITS | CCD ---
Author Organization [facility] Care Team Providers Care Center Maker Hand Name Role Phone House DO, Sr Jonathan Klein Primary Care Provider BARCLAYRADHA Referring Unavailabl e HOUSE, SR JONATHAN Klein Primary Care Unavailable Ana Luisa Curtis Unavailable GRACE, DR BASURTO Primary Care Unavailable HOLM ., DR RICARDO Belcher Admitting Unavailable HOLM ., DR RICARDO Belcher Attending Unavailable PIERCE ., CRYS Consulting Unavailable HOLM ., DR RICARDO Belcher Admitting Unavailable HOUSE, DR ABSURTO Primary Care Unavailable PIERCE ., CRYS Consulting [...] Unavailable HOUSE, DR BASURTO Primary Care Unavailable LETART, DR RYAN Guzman Consulting Unavailable HOUSE, DR JONATHAN Trimble Unavailable HOML ., DR RICARDO Belcher Admitting Unavailable HOUSE, [...] Unavailable Shaikh Connelly MD Primary Care Provider [phone] Vidal HIGGINS, Sonam Unavailable Jose Chandler MD Primary Care Provider Jose Chandler MD Primary Care Provider [phone] SONAM DRAKE Attending UnavailSHAIKH Knott Attending Unavailable SHAIKH CONNELLY Attending Unavailable SHAIKH CONNELLY Attending Unavailable SHAIKH CONNELLY Attending Unavailable SONAM DRAKE Attending Unavailcurtis e SONAM DRAKE Attending UnavailSIVAN Cruz Attending Unavailable SONAM DRAKE Referring Unavailabl e Medications Current Medications Medication Drug Class(es) Dates Sig (Normalized) Sig (Original) alendronic acid 70 mg oral tablet (20 sources) Bisphosphonate Start: 03-09-2024 End: 08-24-2024 take 1 tablet by mouth in the [...] the next 30 min. 12 tablet 1 03/09/2024 08/24/2024 Active Start: 07-04-2023 End: 12-31-2023 take 1 [...] mg / clavulanate 125 mg oral tablet (3 sources) Penicillin-class Antibacterial Start: 03-03-2024 End: 03-10-2024 [...] 2017 1:00am baclofen 20 mg oral tablet (20 sources) gamma-Aminobutyric Acid-ergic Agonist Start: 08-22-2023 End: [...] 0 Active benzonatate 200 mg oral capsule (3 sources) Non-narcotic Antitussive Start: 03-03-2024 End: 03-10-2024 [...] 30 tablet 11/04/2023 12/18/2023 Discontinued Continuous Glucose Billing Rep (Dexcom G7 Billing Rep) device (4 sources) Start: 03-03-2024 Continuous Glucose Billing Rep (Dexcom G7 Billing Rep) device Indications: Type 2 diabetes mellitus with diabetic microalbuminuria, without long-term current use of insulin ([facility]) 1 each continuously 1 each 03/03/2024 Active Continuous Glucose Sensor (Dexcom G7 Sensor) misc (4 sources) Start: 03-03-2024 Continuous Glucose Sensor (Dexcom G7 Sensor) [facility] Indications: Type 2 diabetes mellitus with diabetic microalbuminuria, without long-term current use of insulin ([facility]) 1 each continuously 3 each 03/03/2024 Active diclofenac sodium 75 mg delayed [...] tablet (20 sources) Histamine-2 Receptor Antagonist Start: 03-16-2024 take 1 tablet by mouth twice daily famotidine (Pepcid) 20 MG tablet Indications: Gastroesophageal reflux disease without esophagitis TAKE 1 TABLET BY MOUTH TWICE DAILY 180 tablet 03/16/2024 Active Start: 07-04-2023 End: 03-16-2024 take 1 tablet by mouth once daily famotidine (Pepcid) 20 MG tablet Indications: Gastroesophageal reflux disease without esophagitis Take 1 tablet (20 mg) by mouth Daily 90 tablet 1 07/04/2023 03/16/2024 Discontinued Start: 08-16-2021 take 1 tablet by alonso once daily famotidine (PEPCID) 20 MG tablet TAKE 1 TABLET BY MOUTH EVERY DAY 0 08/16/2021 Active fluticasone propionate 0.05 mg/actuat metered dose nasal spray (4 sources) Corticosteroid Start: 03-03-2024 End: 03-03-2025 take 1-2 spray(s) nasal route once daily fluticasone (Flonase) 50 MCG/ACT nasal spray Indications: Upper respiratory infection with cough and congestion Administer 1-2 sprays into each nostril Daily Shake gently. Before first use, prime pump. After use, clean tip and replace cap. 16 g 2 03/03/2024 03/03/2025 Active furosemide 20 mg oral tablet (16 sources) Loop Diuretic Start: 08-05-2023 End: 02-01-2024 [...] microalbuminuria, without long-term current use of insulin ([facility]) Take 1 tablet (500 mg) by [...] bid Active rizatriptan 10 mg oral tablet (20 sources) Serotonin-1b and Serotonin-1d Receptor Agonist Start: [...] as needed by oral route. 0 Active ascorbic acid 100 mg oral [...] 12, 2017 1:00am January 15, 2017 2:23pm Uuyczjvmgrzg-Ki-Ea on-Minerals (Multiple Vitamin, Womens) Tablet (1 source) Start: 01-12-2017 End: 01-15-2017 Qaidsqzkcgbn-Gx-U pablo-Minerals (Multiple Vitamin, Womens) Tablet Discontinued PO [...] Translations: [Other hyperlipidemia] Onset: 05-02-2023 05-02-2023 Chronic Esophageal disorders (1 source) Gastroesophageal reflux disease without esophagitis; Translations: [Gastro-esophageal reflux disease without esophagitis] 03-16-2024 Chronic Essential hypertension (20 sources) Essential (primary) hypertension; Translations: [Hypertensive disorder] Onset: 04-16-2022 01-13-2017 Chronic Genitourinary symptoms and ill-defined conditions (20 sources) Incontinence; Translations: [Mixed incontinence] Onset: 10-03-2023 10-03-2023 Chronic Genitourinary symptoms and ill-defined conditions (13 sources) Increased frequency of urination; Translations: [Frequency [...] joint of left hand] Onset: 03-08-2022 Chronic Osteoporosis (1 source) Osteoporosis; Translations: [Age-related osteoporosis without current pathological fracture] 03-09-2024 Chronic Other connective tissue disease (2 sources) [...] nutritional; endocrine; and metabolic disorders (20 sources) Body mass index 40+ - severely [...] fracture] Onset: 07-04-2023 07-04-2023 Episodic Other aftercare (20 sources) Post-discharge follow-up; Translations: [Encounter for follow-up examination after completed treatment for conditions other than malignant neoplasm] Onset: 07-04-2023 07-04-2023 Episodic Other and unspecified benign neoplasm (20 sources) Melanocytic nevus of trunk; Translations: [Melanocytic [...] 10-03-2023 Episodic Other non-epithelial cancer of skin (20 sources) Basal cell carcinoma of nose; Translations: [...] Onset: 01-29-2023 Episodic Other upper respiratory infections (20 sources) Acute upper respiratory infection; Translations: [Acute upper respiratory infection, unspecified] Onset: 01-29-2023 01-29-2023 Episodic Residual codes; unclassified (20 sources) Bilateral lower limb edema; Translations: [Localized [...] WITH AUTO DIFFon BASOPHILS ABSOLUTE AUTO 0.1 [facility] Basophils/100 WBC (Bld) 0.4 % 0.2 - 2.0 % [facility] Eosinophils/100 WBC (Bld) 3.2 % 0.9 - 7.0 % [facility] Erythrocyte distribution width (RBC) [Ratio] 15.6 % High 11.0 - 15.0 % [facility] Hematocrit (Bld) [Volume fraction] 42.4 % 36.0 - 48.0 % [facility] (Bld) [Mass/Vol] 13.9 g/dL 12.0 - 16.0 g/dL [facility] IMMATURE GRANULOCYTES ABS AUTO 0.09 High [facility] Immature granulocytes/100 WBC (Bld) 0.7 % High 0.0 - 0.5 % [facility] Interpretation and review of laboratory results Abnormal [facility] LYMPHOCYTES ABSOLUTE AUTO 3.5 [facility] Lymphocytes/100 WBC (Bld) 27.7 % 20.5 - 60.0 % [facility] MCH (RBC) [Entitic mass] 31.4 pg 26.7 - 34.0 pg [facility] MCHC (RBC) [Mass/Vol] 32.8 g/dL 29.9 - 35.2 g/dL [facility] MCV (RBC) [Entitic vol] 95.7 fL 81.0 - 99.0 fL [facility] MONOCYTES ABSOLUTE AUTO 0.9 High [facility] Monocytes/100 WBC (Bld) 7.4 % 1.7 - 12.0 % [facility] NEUTROPHILS ABSOLUTE AUTO 7.7 High [facility] Neutrophils/100 WBC (Bld) 60.6 % 43.0 - 75.0 % [facility] Platelet mean volume (Bld) [Entitic vol] 10.9 fL 9.5 - 13.5 fL [facility] are [facility] EO # 0.4 [facility] PLT 219 [facility] RBC 4.43 [facility] WBC 12.8 High [facility] NOM Healthcar e [...] level, greatest at L2-3. Electronically authenticated by: PATTIEBELLA SALTER Date: 2022-06-07 11:15 Normal [facility] CBC AUTO DIFFon 04-12-2022 BASO # 0.1 103/ul Normal 0.0-0.1 [facility] Comment on above: Performed By: #### C BC ####[facility] [address] [place] [address]Dr. Ricky Valenzuela Basophils/100 WBC (Bld) 0.5 % Normal 0.2-2.0 [facility] Comment on above: Performed By: #### C BC ####[facility] [address] [place], [place] [address]Dr. Ricky Valenzuela EO # 0.3 103/ul Normal 0.0-0.7 [facility] Comment on above: Performed By: #### C BC ####[facility] [address] [place], [place] [address]Dr. Ricky Valenzuela Eosinophils/100 WBC (Bld) 3.0 % Normal 0.9-7.0 [facility] Comment on above: Performed By: #### C BC ####[facility] [address] [place], [place] [address]Dr. Ricky Valenzuela Erythrocyte distribution width (RBC) [Ratio] 14.8 % Normal 11.0-15.0 [facility] Comment on above: Performed By: #### C BC ####[facility] [address] [place], [place] [address]Dr. Ricky Valenzuela Hematocrit (Bld) [Volume fraction] 40.6 % Normal 36.0-48.0 [facility] Comment on above: Performed By: #### C BC ####[facility] [address] [place], [place] [address]Dr. Ricky Valenzuela Hemoglobin (Bld) [Mass/Vol] 13.5 g/dL Normal 12.0-16.0 [facility] Comment on above: Performed By: #### C BC ####[facility] [address] [place], [place] [address]Dr. Ricky Valenzuela IG # 0.16 10e3/ul Critically high 0.00-0.03 [facility] Comment on above: Performed By: #### C BC ####[facility] [address] [place] [address]Dr. Ricky Nicolas IG % 1.4 % Critically high 0.0-0.5 [facility] Comment on above: Performed By: #### C BC ####[facility] [address] [place] [address]Dr. Ricky Valenzuela LYMPH # 3.4 103/ul Normal 1.2-3.8 [facility] Comment on above: Performed By: #### C BC ####[facility] [address] [place] [address]Dr. Ricky Valenzuela Lymphocytes/100 WBC (Bld) 30.4 % Normal 20.5-60.0 [facility] Comment on above: Performed By: #### C BC ####[facility] [address] [place], [place] [address]Dr. Ricky Valenzuela MANUAL DIFF REQ NO Normal [facility] Comment on above: Performed By: #### C BC ####[facility] [address] [place] [address]Dr. Ricky Nicolas MCH (RBC) [Entitic mass] 31.8 pg Normal 26.7-34.0 [facility] Comment on above: Performed By: #### C BC ####[facility] [address] [place] [address]Dr. Lesleysharron Nicolas MCHC (RBC) [Mass/Vol] 33.3 g/dL Normal 29.9-35.2 [facility] Comment on above: Performed By: #### C BC ####[facility] [address] [place] [address]Dr. Ricky Valenzuela MCV (RBC) [Entitic vol] 95.5 fL Normal 81.0-99.0 [facility] Comment on above: Performed By: #### C BC ####[facility] [address] [place], [place] [address]Dr. Ricky Valenzuela MONO # 0.9 103/ul Critically high 0.3-0.8 [facility] Comment on above: Performed By: #### C BC ####[facility] [address] [place] [id number]. Ricky Valenzuela Monocytes/100 WBC (Bld) 7.7 % Normal 1.7-12.0 [facility] Comment on above: Performed By: #### C BC ####[facility] [address] [place] [id number]. Ricky Valenzuela NEUT # 6.3 103/ul Normal 1.4-6.5 [facility] Comment on above: Performed By: #### C BC ####[facility] [address] [place] [address]Dr. Ricky Valenzuela Neutrophils/100 WBC (Bld) 57.0 % Normal 43.0-75.0 [facility] Comment on above: Performed By: #### C BC ####[facility] [address] [place], [place] [address]Dr. Ricky Valenzuela Platelet mean volume (Bld) [Entitic vol] 9.8 fL Normal 9.5-13.5 [facility] Comment on above: Performed By: #### C BC ####[facility] [address] [place] [address]Dr. Ricky Valenzuela PLT 246 103/ul Normal 150-450 [facility] Comment on above: Performed By: #### C BC ####[facility] [address] [place] [id number]. Ricky Valenzuela RBC 4.25 106/ul Normal 4.20-5.40 [facility] Comment on above: Performed By: #### C BC ####[facility] [address] [place] [id number]. Ricky Valenzuela WBC 11.1 103/ul Critically high 4.0-11.0 [facility] Comment on above: Performed By: #### C BC ####[facility] [address] [place] [id number]. Ricky Valenzuela GLYCOHEMOGLOBIN A1Con 2022 ADA RECOMMENDATION SEE BELOW Normal [facility] Comment on above: Result Comment: ADA RECOMMENDED LIMIT 4.0 - 6.0 ADA THERAPEUTIC TARGET < 7.0 ACTION SUGGESTED > 7.0 Performed By: #### A 1C ####[facility] [address] [place] [address]Dr. Ricky Valenzuela Glucose [Mass/Vol] 160 mg/dL Normal [facility] Comment on above: Performed By: #### A 1C ####[facility] [address] [place] [address]Dr. Ricky Valenzuela HbA1c (Bld) [Mass fraction] 7.2 % Critically high 4.5-6.2 [facility] Comment on above: Performed By: #### A 1C ####[facility] [address] [place] [address]Dr. Ricky Valenzuela MICROALBUMIN, RAND URon 03-0 mALB <1.3 Normal <=30.0 [facility] Comment on above: Performed By: #### M ALBR #### [facility] [address] [place] [address] Dr. Ricky Valenzuela PROF 14(COMP METB)on 023 Albumin [Mass/Vol] 3.3 g/dL Critically low 3.4-5.0 [facility] Comment on above: Performed By: #### C MP #### [facility] [address] [place] [address] Dr. Ricky Valenzuela Albumin/Globulin [Mass ratio] 0.9 {ratio} Normal [facility] Comment on above: Performed By: #### C MP #### [facility] [address] [place] [address] Dr. Ricky Valenzuela ALP [Catalytic activity/Vol] 90 U/L Normal 46-116 [facility] Comment on above: Performed By: #### C MP #### [facility] [address] [place] [address] Dr. Ricky Valenzuela ALT [Catalytic activity/Vol] 42 U/L Normal 14-59 [facility] Comment on above: Performed By: #### C MP #### [facility] [address] [place] [address] [address] Ricky Valenzuela Anion gap [Moles/Vol] 10.1 mmol/L Normal [facility] Comment on above: Performed By: #### C MP #### [facility] [address] [address] [address] Ricky Valenzuela AST [Catalytic activity/Vol] 21 U/L Normal 15-37 [facility] Comment on above: Performed By: #### C MP #### [facility] [address] [address] [address] Ricky Valenzuela Bilirubin [Mass/Vol] 0.3 mg/dL Normal 0.2-1.0 [facility] Comment on above: Performed By: #### C MP #### [facility] [address] [place] [address] Dr. Ricky Valenzuela Calcium [Mass/Vol] 9.8 mg/dL Normal 8.5-10.1 [facility] Comment on above: Performed By: #### C MP #### [facility] [address] [place] [address] Dr. Ricky Valenzuela Chloride [Moles/Vol] 99 mmol/L Normal 98-107 [facility] Comment on above: Performed By: #### C MP #### [facility] [address] [address] [address] Ricky Valenzuela CO2 [Moles/Vol] 33.7 mmol/L Critically high 21.0-32.0 [facility] Comment on above: Performed By: #### C MP #### [facility] [address] [address] [address] Ricky Valenzuela Creatinine [Mass/Vol] 0.94 mg/dL Normal 0.55-1.02 [facility] Comment on above: Performed By: #### C MP #### [facility] [address] [place] [address] Dr. Ricky Valenzuela EGFR-AF ANDORRAN >60 Normal >=60 [facility] Comment on above: Performed By: #### C MP #### [facility] [address] [address] [address] Ricky Valenzuela EGFR-NON AF ANDORRAN >60 Normal >=60 [facility] Comment on above: Performed By: #### C MP #### [facility] [address] [address] [address] Ricky Valenzuela Globulin (S) [Mass/Vol] 3.8 g/dL Normal [facility] Comment on above: Performed By: #### C MP #### [facility] [address] [address] [address] Ricky Valenzuela Glucose [Mass/Vol] 168 mg/dL Critically high 74-106 [facility] Comment on above: Performed By: #### C MP #### [facility] [address] [address] [address] Ricky Valenzuela Potassium [Moles/Vol] 4.8 mmol/L Normal 3.5-5.1 [facility] Comment on above: Performed By: #### C MP #### [facility] [address] [place] [address] Dr. Ricky Valenzuela Protein [Mass/Vol] 7.1 g/dL Normal 6.4-8.2 [facility] Comment on above: Performed By: #### C MP #### [facility] [address] [address] [address] Ricky Valenzuela Sodium [Moles/Vol] 138 mmol/L Normal 136-145 [facility] Comment on above: Performed By: #### C MP #### [facility] [address] [address] [address] Ricky Valenzuela Urea nitrogen [Mass/Vol] 22.0 mg/dL Critically high 7.0-18.0 [facility] Comment on above: Performed By: #### C MP #### [facility] [address] [address] [address] Ricky Valenzuela Urea nitrogen/Creatinine [Mass ratio] 23.4 mg/mg Normal [facility] Comment on above: Performed By: #### C MP #### [facility] [address] [place] [address] Dr. Ricky Valenzuela Cytologyon 08-30-2021 Cytology (NOTE) INTERPRETATION Vaginal material, (ThinPrep vial, Imaging-assisted review): Specimen Adequacy: Satisfactory for evaluation. Descriptive Diagnosis: Negative for intraepithelial lesion or malignancy. Fortune Teller: CLARK Delacruz(ASCP) Electronically Signed Out ss/09/07/2021 Source: A: Vaginal material, (ThinPrep vial, Imaging-assisted review) Clinical History Hysterectomy Surgery: Salpingostomy; Ovary removal Z12.4 Encounter for screening for malignant neoplasm of cervix GYNECOLOGIC CYTOLOGY REPORT Patient Name: KARINA DE OLIVEIRA [facility] Rec: [id number] Path Number: [id number] [facility] ANATOMIC PATHOLOGY [address] [place] [id number] Normal [facility] Comment on above: Performed By: #### P PPVP #### [address] [id number] [place] Opener: Luca Cummins MD CBC AUTO DIFFon 08-09-2021 BASO # 0.1 103/ul Normal 0.0-0.1 [facility] Comment on above: Performed By: #### C BC #### [facility] [address] [address] [address] Ricky Valenzuela Basophils/100 WBC (Bld) 0.8 % Normal 0.2-2.0 [facility] Comment on above: Performed By: #### C BC #### [facility] [address] [address] [address] Ricky Valenzuela EO # 0.2 103/ul Normal 0.0-0.7 [facility] Comment on above: Performed By: #### C BC #### [facility] [address] [address] [address] Ricky Valenzuela Eosinophils/100 WBC (Bld) 2.1 % Normal 0.9-7.0 [facility] Comment on above: Performed By: #### C BC #### [facility] [address] [address] [address] Ricky Valenzuela Erythrocyte distribution width (RBC) [Ratio] 15.2 % Critically high 11.0-15.0 [facility] Comment on above: Performed By: #### C BC #### [facility] [address] [address] [address] Ricky Valenzuela Hematocrit (Bld) [Volume fraction] 41.5 % Normal 36.0-48.0 [facility] Comment on above: Performed By: #### C BC #### [facility] [address] [address] [address] Ricky Valenzuela Hemoglobin (Bld) [Mass/Vol] 13.5 g/dL Normal 12.0-16.0 [facility] Comment on above: Performed By: #### C BC #### [facility] [address] [place] [address] Dr. Ricky Valenzuela IG # 0.42 10e3/ul Critically high 0.00-0.03 [facility] Comment on above: Performed By: #### C BC #### [facility] [address] [place] [address] Dr. Ricky Valenzuela IG % 3.8 % Critically high 0.0-0.5 [facility] Comment on above: Performed By: #### C BC #### [facility] [address] [address] [address] Ricky Valenzuela LYMPH # 3.3 103/ul Normal 1.2-3.8 [facility] Comment on above: Performed By: #### C BC #### [facility] [address] [place] [address] Dr. Ricky Valenzuela Lymphocytes/100 WBC (Bld) 29.1 % Normal 20.5-60.0 [facility] Comment on above: Performed By: #### C BC #### [facility] [address] [address] [address] Ricky Valenzuela MANUAL DIFF REQ NO Normal [facility] Comment on above: Performed By: #### C BC #### [facility] [address] [place] [address] Dr. Ricky Valenzuela MCH (RBC) [Entitic mass] 32.4 pg Normal 26.7-34.0 [facility] Comment on above: Performed By: #### C BC #### [facility] [address] [address] [address] Ricky Valenzuela MCHC (RBC) [Mass/Vol] 32.5 g/dL Normal 29.9-35.2 [facility] Comment on above: Performed By: #### C BC #### [facility] [address] [address] [address] Ricky Valenzuela MCV (RBC) [Entitic vol] 99.5 fL Critically high 81.0-99.0 [facility] Comment on above: Performed By: #### C BC #### [facility] [address] [place] [address] Dr. Ricky Valenzuela MONO # 0.8 103/ul Normal 0.3-0.8 [facility] Comment on above: Performed By: #### C BC #### [facility] [address] [place] [address] Dr. Ricky Valenzuela Monocytes/100 WBC (Bld) 7.5 % Normal 1.7-12.0 [facility] Comment on above: Performed By: #### C BC #### [facility] [address] [place] [address] Dr. Ricky Valenzeula NEUT # 6.3 103/ul Normal 1.4-6.5 [facility] Comment on above: Performed By: #### C BC #### [facility] [address] [place] [address] Dr. Ricky Valenzuela Neutrophils/100 WBC (Bld) 56.7 % Normal 43.0-75.0 [facility] Comment on above: Performed By: #### C BC #### [facility] [address] [place] [address] Dr. Ricky Valenzuela Platelet mean volume (Bld) [Entitic vol] 9.8 fL Normal 9.5-13.5 [facility] Comment on above: Performed By: #### C BC #### [facility] [address] [place] [address] Dr. Ricky Valenzuela PLT 265 103/ul Normal 150-450 [facility] Comment on above: Performed By: #### C BC #### [facility] [address] [address] [address] Ricky Valenzuela RBC 4.17 106/ul Critically low 4.20-5.40 [facility] Comment on above: Performed By: #### C BC #### [facility] [address] [address] [address] Ricky Valenzuela WBC 11.2 103/ul Critically high 4.0-11.0 [facility] Comment on above: Performed By: #### C BC #### [facility] [facility] [address] [address] [address] Ricky Valenzuela GLYCOHEMOGLOBIN A1Con 2021 ADA RECOMMENDATION SEE BELOW Normal [facility] Comment on above: Result Comment: ADA RECOMMENDED LIMIT 4.0 - 6.0 ADA THERAPEUTIC TARGET < 7.0 ACTION SUGGESTED > 7.0 Performed By: #### A 1C ####[facility] [id number] [address]Dr. Ricky Valenzuela Glucose [Mass/Vol] 183 mg/dL Normal [facility] Comment on above: Performed By: #### A 1C ####[facility] [id number] [address]Dr. Ricky Valenzuela HbA1c (Bld) [Mass fraction] 8.0 % Critically high 4.5-6.2 [facility] Comment on above: Performed By: #### A 1C ####[facility] [id number] [address]Dr. Ricky Valenzuela LIPID PROFILEon 08-09-2021 CHOL-HDL RATIO NORM SEE BELOW Normal [facility] Comment on above: Result Comment: 3.3 - 4.4 LOW RISK 4.4 - 7.1 AVERAGE RISK 7.1 - 11.0 MODERATE RISK >11.0 HIGH RISK Performed By: #### C MP, LIPID #### [facility] [address] [address] [address] Ricky Valenzuela Cholesterol [Mass/Vol] 239 mg/dL Critically high <=200 [facility] Comment on above: Performed By: #### C MP, LIPID #### [facility] [address] [address] [address] Ricky Valenzuela Cholesterol in HDL [Mass/Vol] 36 mg/dL Critically low 40-60 [facility] Comment on above: Performed By: #### C MP, LIPID #### [facility] [address] [address] [address] Ricky Valenzuela Cholesterol in LDL [Mass/Vol] 164.2 mg/dL Normal [facility] Comment on above: Performed By: #### C MP, LIPID #### [facility] [address] [address] [address] Ricky Valenzuela Cholesterol.total/Ch olesterol in HDL [Mass ratio] 6.6 {ratio} Normal [facility] Comment on above: Performed By: #### C MP, LIPID #### [facility] [address] [place] [address] Dr. Ricky Valenzuela HDL NORMAL > or = 60 mg/dl - LOW CARDIOVASCULAR RISK <40 mg/dl - HIGH CARDIOVASCULAR RISK Normal [facility] Comment on above: Performed By: #### C MP, LIPID #### [facility] [address] [place] [address] Dr. Ricyk Valenzuela LDL CALC NORMAL SEE BELOW Normal [facility] Comment on above: Result Comment: <100 mg/dl OPTIMAL 100 - 129 mg/dl NEAR OR ABOVE OPTIMAL 130 - 159 mg/dl BORDERLINE HIGH 160 - 189 mg/dl HIGH >190 mg/dl VERY HIGH Performed By: #### C MP, LIPID #### [facility] [address] [place] [address] Dr. Ricky Valenzuela Triglyceride [Mass/Vol] 194 mg/dL Critically high <=150 [facility] Comment on above: Performed By: #### C MP, LIPID #### [facility] [address] [address] [address] Ricky Valenzuela VLDL CALC 38.8 mg/dL Normal [facility] Comment on above: Performed By: #### C MP, LIPID #### [facility] [address] [place] [address] Dr. Ricky Valenzuela MICROALBUMIN, RAND URon 06-2 mALB 13.1 mg/L Normal <=30.0 [facility] Comment on above: Performed By: #### M ALBR ####[facility] [address] [place], [place] [address]BpDr. Ricky Valenzuela PROF 14(COMP METB)on 022 Albumin [Mass/Vol] 3.3 g/dL Critically low 3.4-5.0 [facility] Comment on above: Performed By: #### C MP, LIPID #### [facility] [address] [address] [address] Ricky Valenzuela Albumin/Globulin [Mass ratio] 0.8 {ratio} Normal [facility] Comment on above: Performed By: #### C MP, LIPID #### [facility] [address] [address] [address] Ricky Valenzuela ALP [Catalytic activity/Vol] 93 U/L Normal 46-116 [facility] Comment on above: Performed By: #### C MP, LIPID #### [facility] [address] [address] [address] Ricky Valenzuela ALT [Catalytic activity/Vol] 37 U/L Normal 14-59 [facility] Comment on above: Performed By: #### C MP, LIPID #### [facility] [address] [address] [address] Ricky Valenzuela Anion gap [Moles/Vol] 10.9 mmol/L Normal [facility] Comment on above: Performed By: #### C MP, LIPID #### [facility] [address] [address] [address] Ricky Valenzuela AST [Catalytic activity/Vol] 10 U/L Critically low 15-37 [facility] Comment on above: Performed By: #### C MP, LIPID #### [facility] [address] [address] [address] Ricky Valenzuela Bilirubin [Mass/Vol] 0.2 mg/dL Normal 0.2-1.0 [facility] Comment on above: Performed By: #### C MP, LIPID #### [facility] [address] [address] [address] Ricky Valenzuela Calcium [Mass/Vol] 9.0 mg/dL Normal 8.5-10.1 [facility] Comment on above: Performed By: #### C MP, LIPID #### [facility] [address] [place] [address] Dr. Ricky Valenzuela Chloride [Moles/Vol] 100 mmol/L Normal 98-107 [facility] Comment on above: Performed By: #### C MP, LIPID #### [facility] [address] [place] [address] Dr. Ricky Valenzuela CO2 [Moles/Vol] 32.2 mmol/L Critically high 21.0-32.0 [facility] Comment on above: Performed By: #### C MP, LIPID #### [facility] [address] [place] [address] Dr. Ricky Valenzuela Creatinine [Mass/Vol] 0.95 mg/dL Normal 0.55-1.02 [facility] Comment on above: Performed By: #### C MP, LIPID #### [facility] [address] [place] [address] Dr. Ricky Valenzuela EGFR-AF ANDORRAN >60 Normal >=60 [facility] Comment on above: Performed By: #### C MP, LIPID #### [facility] [address] [place] [address] Dr. Ricky Valenzuela EGFR-NON AF ANDORRAN >60 Normal >=60 [facility] Comment on above: Performed By: #### C MP, LIPID #### [facility] [address] [place] [address] Dr. Ricky Valenzuela Globulin (S) [Mass/Vol] 4.2 g/dL Normal [facility] Comment on above: Performed By: #### C MP, LIPID #### [facility] [address] [place] [address] Dr. Ricky Valenzuela Glucose [Mass/Vol] 200 mg/dL Critically high 74-106 [facility] Comment on above: Performed By: #### C MP, LIPID #### [facility] [address] [place] [address] Dr. Ricky Valenzuela Potassium [Moles/Vol] 4.1 mmol/L Normal 3.5-5.1 [facility] Comment on above: Performed By: #### C MP, LIPID #### [facility] [address] [place] [address] Dr. Ricky Valenzuela Protein [Mass/Vol] 7.5 g/dL Normal 6.4-8.2 [facility] Comment on above: Performed By: #### C MP, LIPID #### [facility] [address] [place] [address] Dr. Ricky Valenzuela Sodium [Moles/Vol] 139 mmol/L Normal 136-145 [facility] Comment on above: Performed By: #### C MP, LIPID #### [facility] [address] [place] [address] Dr. Ricky Valenzuela Urea nitrogen [Mass/Vol] 13.0 mg/dL Normal 7.0-18.0 [facility] Comment on above: Performed By: #### C MP, LIPID #### [facility] [address] [place] [address] Dr. Ricky Valenzuela Urea nitrogen/Creatinine [Mass ratio] 13.7 mg/mg Normal [facility] Comment on above: Performed By: #### C MP, LIPID #### [facility] [address] [place] [address] Dr. Ricky Valenzuela POINT OF CARE GLUCOSEon 06-12 Glucose [Mass/Vol] 176 mg/dL Critically high 74-106 [facility] Comment on above: Performed By: #### P OCGLUC #### [facility] [address] [place] [address] Dr. Ricky Valenzuela Vital Signs Date Time Vital Sign Value Performing Clinician Facility 03-03-2024 10: Body height 157.5 cm Sonam Drake [employer] Work Phone: [facility] 03-03-2024 10:050 Body mass index (BMI) [Ratio] 39.51 kg/m2 Sonam Drake [employer] Work Phone: [facility] 03-03-2024 10:050 Body temperature 97.2 [degF] Sonam Drake [employer] Work Phone: [facility] 03-03-2024 10:13-0500 Body weight 97.98 kg Sonam Riverpatrick [employer] Work Phone: [facility] 03-03-2024 10:13-0500 Diastolic blood pressure 76 mm[Hg] Sonam Drake [employer] Work Phone: [facility] 03-03-2024 10:13-0500 Heart rate 84 /min Sonam Riverpatrick [employer] Work Phone: [facility] 03-03-2024 10:13-0500 Respiratory rate 16 /min Sonam Drake [employer] Work Phone: [facility] 03-03-2024 10:13-0500 SaO2% (BldA) [Mass fraction] 96 % Sonam Riverpatrick [employer] Work Phone: [facility] 03-03-2024 10:13-0500 Systolic blood pressure 120 mm[Hg] Sonam Riverpatrick [employer] Work Phone: [facility] 12-31-2023 10:06-0500 Body height 157.5 cm Sivan Solo DO Work Phone: [facility] 12-31-2023 10:06-0500 Body mass index (BMI) [Ratio] 39.14 kg/m2 Sivan Solo DO Work Phone: [facility] 12-31-2023 10:06-0500 Body weight 97.07 kg Sivan Solo DO Work Phone: [facility] 12-31-2023 10:06-0500 Diastolic blood pressure 72 mm[Hg] Sivan Solo DO Work Phone: [facility] 12-31-2023 10:06-0500 Heart rate 95 /min Sivan Solo DO Work Phone: [facility] 12-31-2023 10:06-0500 SaO2% (BldA) [Mass fraction] 97 % Sivan Solo DO Work Phone: [facility] 12-31-2023 10:06-0500 Systolic blood pressure 118 mm[Hg] Sivan Solo DO Work Phone: [facility] 12-30-2023 10:46-0500 Body mass index (BMI) [Ratio] 40.06 kg/m2 Sonam Drake [employer] Work Phone: [facility] 12-30-2023 10:46-0500 Body weight 99.34 kg Sonam Drake [employer] Work Phone: [facility] 12-30-2023 10:46-0500 Diastolic blood pressure 74 mm[Hg] Sonam Drake [employer] Work Phone: [facility] 12-30-2023 10:46-0500 Heart rate 97 /min Sonam Drake [employer] Work Phone: [facility] 12-30-2023 10:46-0500 SaO2% (BldA) [Mass fraction] 98 % Sonam Drake [employer] Work Phone: [facility] 12-30-2023 10:46-0500 Systolic blood pressure 98 mm[Hg] Sonam Drake [employer] Work Phone: [facility] 10-03-2023 10:07-0400 Body height 157.5 cm Sonam Drake [employer] Work Phone: [facility] 10-03-2023 10:07-0400 Body mass index (BMI) [Ratio] 39.32 kg/m2 Sonam Drake [employer] Work Phone: [facility] 10-03-2023 10:07-0400 Body temperature 97.5 [degF] Sonam Drake [employer] Work Phone: [facility] 10-03-2023 10:07-0400 Body weight 97.52 kg Sonam Drake [employer] Work Phone: [facility] 10-03-2023 10:07-0400 Diastolic blood pressure 70 mm[Hg] Sonam Mansfieldzpatrick [employer] Work Phone: [facility] 10-03-2023 10:07-0400 Heart rate 107 /min Sonam Mansfieldzpatrick [employer] Work Phone: [facility] Comment on above: 97% O2 10-03-2023 10:07-0400 Systolic blood pressure 90 mm[Hg] Sonam Mansfieldzpatrick [employer] Work Phone: [facility] 01-18-2023 09:10-0500 Body height 156.21 cm Elle Hendricks Other [facility] Other 01-18-2023 09:10-0500 Body mass index (BMI) [Ratio] 42.82 kg/m2 Elle Ruthie Other [facility] Other 01-18-2023 09:10-0500 Body temperature 98.2 [degF] Elle Ruthie Other [facility] Other 01-18-2023 09:10-0500 Body weight 104.51 kg Elle Ruthie Other [facility] Other 01-18-2023 09:10-0500 Diastolic blood pressure 92 mm[Hg] Elle Ruthie Other [facility] Other 01-18-2023 09:10-0500 Respiratory rate 18 /min Elle Ruthie Other [facility] Other 01-18-2023 09:10-0500 SaO2% (BldA) [Mass fraction] 97 % Elle Hendricks Other [facility] Other 01-18-2023 09:10-0500 Systolic blood pressure 145 mm[Hg] Elle Hendricks Other [facility] Other Encounters Encounter Date Encounter Type Care Provider Facility Start: 03-16-2024 End: 03-16-2024 Refill Sonam Drake [employer] Work Phone: [facility] Comment on above: Gastroesophageal ref lux disease without esophagitis Start: 03-09-2024 End: 03-09-2024 Refill Sonam Drake [employer] Work Phone: [facility] Comment on above: Osteoporosis, unspec ified osteoporosis type, unspecified pathological fracture presence ([facility]) Start: 03-03-2024 End: 03-03-2024 Bamboo flowsheet Sonam Drake [employer] Work Phone: [facility] Start: 03-03-2024 End: 03-03-2024 Bamboo flowsheet Sonam Drake [employer] Work Phone: [facility] Start: 03-03-2024 End: 03-03-2024 ambulatory SONAM DRAKE Not Available Start: 03-03-2024 End: 03-03-2024 Office outpatient visit 10 minutes Sonam Drake [employer] Work Phone: [facility] Comment on above: Upper respiratory in fection with cough and congestion (Primary Dx); Lumbar back pain; Migraine with aura and without status migrainosus, not intractable ([facility]); Type 2 diabetes mellitus with diabetic microalbuminuria, without long-term current use of insulin ([facility]); Diabetic polyneuropathy associated with type 2 diabetes mellitus ([facility]); Other hyperlipidemia ([facility]) Start: 01-30-2024 End: 01-30-2024 Refill Jolly Castaneda MA [facility] Comment on above: Lumbar back pain (Pr imary Dx); Type 2 diabetes mellitus with diabetic microalbuminuria, without long-term current use of insulin ([facility]) Start: 01-14-2024 End: 01-14-2024 Refill Jolly Castaneda MA [facility] Comment on above: Lumbar back pain Start: 12-31-2023 End: 12-31-2023 Clinisync Result Encounter Sonam Princek [employer] Work Phone: [facility] External Department Unsolicited Start: 12-31-2023 End: 12-31-2023 Clinisync Result Encounter Sonam Valenciatrick [employer] Work Phone: [facility] External Department Unsolicited Start: 12-31-2023 End: 12-31-2023 Office consultation new/estab patient 60 min Sivan Villegas DO Work Phone: [facility] Comment on above: JANETT (obstructive sle ep apnea) (Primary Dx); Hypersomnia; Snoring; Primary insomnia; Tobacco abuse Start: 12-31-2023 End: 12-31-2023 ambulatory SIVAN VILLEGAS Not Available Start: 12-30-2023 End: 12-30-2023 Bamboo flowsheet Sonam Drake [employer] Work Phone: [facility] Start: 12-30-2023 End: 12-30-2023 Bamboo flowsheet Sonam Drake [employer] Work Phone: [facility] Start: 12-30-2023 End: 12-30-2023 Office outpatient visit 15 minutes Sonam Drake [employer] Work Phone: [facility] Comment on above: Type 2 diabetes cory itus with diabetic microalbuminuria, without long-term current use of insulin ([facility]) (Primary Dx); Essential hypertension; Other hyperlipidemia ([facility]); Snoring; Mixed urge and stress incontinence Start: 12-30-2023 End: 12-30-2023 ambulatory SONAM DRAKE Not Available Start: 12-17-2023 End: 12-17-2023 Refill Jolly Castaneda MA [facility] Comment on above: Migraine with aura a nd without status migrainosus, not intractable (CMS/HCC); Diabetic polyneuropathy associated with type 2 diabetes mellitus (CMS/HCC) Start: 12-17-2023 End: 12-18-2023 Refill Sonam Drake [employer] Work Phone: [facility] Comment on above: Gout, unspecified ca use, unspecified chronicity, unspecified site Start: 11-04-2023 End: 11-04-2023 Refill Stiven Omalley MA [facility] Comment on above: Gout, unspecified ca use, unspecified chronicity, unspecified site Start: 11-01-2023 End: 11-02-2023 Refill Stiven Omalley MA [facility] Comment on above: Diabetic polyneuropa thy associated with type 2 diabetes mellitus ([facility]/HCC) Start: 10-04-2023 ambulatory Facility:[facility] Start: 10-03-2023 End: 10-03-2023 Bamboo flowsheet Sonam Drake [employer]TER Work Phone: [facility] Start: 10-03-2023 End: 10-03-2023 Bamboo flowsheet Sonam Drake [employer] Work Phone: [facility] Start: 10-03-2023 End: 10-03-2023 ambulatory SONAM DRAKE Not Available Start: 10-03-2023 End: 10-03-2023 Office outpatient visit 25 minutes Sonam Drake [employer] Work Phone: [facility] Comment on above: Essential hypertensi on (Primary Dx); Type 2 diabetes mellitus with diabetic microalbuminuria, without long-term current use of insulin ([facility]); Morbid (severe) obesity due to excess calories (E66.01); Other hyperlipidemia (CMS/[facility]); Lumbar back pain; Type 2 diabetes mellitus without complication, without long-term current use of insulin (CMS/HCC); Diabetic polyneuropathy associated with type 2 diabetes mellitus ([facility]); Mixed urge and stress incontinence; Snoring Start: 08-22-2023 End: 08-22-2023 ambulatory CRISTINA FAWWAD Not Available Start: 08-05-2023 End: 08-05-2023 ambulatory SHAIKH AMYD Not Available Start: 07-04-2023 End: 07-04-2023 ambulatory SHAIKH ROLANDWAD Not Available Start: 05-02-2023 End: 05-02-2023 ambulatory SHAIKH AMYD Not Available Start: 04-30-2023 End: 04-30-2023 ambulatory [facility] Work Phone: Start: 04-30-2023 End: 04-30-2023 Patient encounter procedure [facility] [place] [facility] Work Phone: Start: 03-21-2023 Orders Only Shaikh Maricel HOLLIS Work Phone: [facility] Comment on above: Diabetic polyneuropa thy associated with type 2 diabetes mellitus (CMS/HCC) (Primary Dx) Start: 03-19-2023 End: 03-19-2023 ambulatory Ana Luisa Curtis Other [facility] Other Start: 03-19-2023 Office outpatient vi sit 15 minutes Ana Luisa Curtis [facility] Start: 01-23-2023 End: 01-23-2023 ambulatory Ana Luisa Curtis Other [facility] Other Start: 01-23-2023 Office outpatient vi sit 15 minutes Ana Luisa Curtis [facility] [place] [facility] Start: 01-18-2023 End: 01-18-2023 ambulatory Elle Hendricks Other [facility] Other Start: 01-18-2023 Office outpatient vi sit 15 minutes Elle Hendricks [facility] Start: 09-19-2022 End: 09-19-2022 ambulatory Ana Luisa Curtis Other [facility] Other Start: 09-19-2022 Telephone encounter Ana Luisa Zaldivar [facility] [place] [facility] Start: 07-12-[address] JONTAHAN Seayi ty:H1 Start: 06-07-2022 End: 06-08-[address] JONATHAN EDWARDS Facility:[facility] Start: 05-02-2022 End: 05-02-2022 ambulatory Ana Luisa Curtis Other [facility] [employer] Other Start: 05-02-2022 Office outpatient ne w 30 minutes Ana Luisa Curtis [facility] [place] [facility] Start: 04-12-2022 End: 04-13-[address] JONATHAN EDWARDS Facility:[facility] Start: 03-08-2022 End: 03-09-[address] JONATHAN EDWARDS Facility:[facility] Start: 02-16-2022 End: 02-17-[address] JONATHAN EDWARDS Facility:[facility] Start: 02-09-2022 End: 02-10-[address] RICARDO HOLM . Facility:[facility] Start: 11-16-2021 End: 11-17-[address] JONATHAN EDWARDS Facility:[facility] Start: 11-01-2021 End: 11-02-2021 ambulatory CRYS PIERCE . Facility:[facility] Start: 08-30-2021 End: 08-31-2021 ambulatory RADHA BARCLAY [facility] Start: 08-30-2021 End: 08-30-2021 Subsequent hospital visit by physician Sr Edwards DO Work Phone: [facility] Comment on above: Routine cervical sme ar Start: 08-16-2021 Encounter for genera l adult medical examination without abnormal findings DR RICARDO HOLM . [facility] Start: 08-09-2021 End: 08-10-2021 Encounter for [...] ALL CBC WITH AUTO DIFF Sonam Drake [employer] Work Phone: Start: 03-20-2023 Mammography Shaikh Roland calero MD Work Phone: Start: 08-30-2021 Microscopic observat ion [Identifier] in Cervix by Cyto stain Sr House DO Work Phone: Plan of Treatment Date Care Activity Detail Author Start: 03-28-2026 Screening for malign ant neoplasm of colon [facility] Start: 03-08-2026 Screening for malign ant neoplasm of colon [facility] Start: 12-30-2024 Urine screening for protein Diabetes: Urine Protein Screening [facility] Start: 08-30-2024 Screening for malign ant neoplasm of cervix [facility] Start: 07-26-2024 Urine screening for protein Diabetes: Urine Protein Screening [facility] Start: 03-30-2024 End: 03-30-2024 Patient encounter procedure 03/30/2024 11:05 AM EST Office Visit [facility] [address] [place] [id number] Elida Monroy MD [address] [place], [place] [id number] [facility] Start: 03-26-2024 End: 03-26-2024 Patient encounter procedure 03/26/2024 2:00 PM EST Office Visit [facility] [address] [place] [address] Sonam Drake, RONALDO [address] [place] [address] [facility] Start: 03-24-2024 End: 03-24-2024 Patient encounter procedure [facility] Start: 03-20-2024 Screening for malign ant neoplasm of breast Mammogram [facility] Start: 02-27-2024 End: 02-27-2024 Patient encounter procedure 02/27/2024 11:35 AM EST Office Visit [facility] [address] [place] [id number] Elida Monroy MD [address] [place] [address] [facility] Start: 02-25-2024 End: 02-25-2024 Patient encounter procedure 02/25/2024 3:30 PM EST Office Visit [facility] [address] [place] [address] Sonam Drake NP [address] [place] [address] [facility] Start: 02-21-2024 Medicare Annual Well ness (AWV) Medicare Annual Wellness (AWV) [facility] Start: 02-12-2024 Glaucoma screening Diabetes: R etinopathy Screening [facility] Start: 01-25-2024 Hemoglobin A1c measurement Diabetes: Hemoglobin A1C [facility] Start: 12-31-2023 End: 12-30-2024 Polysomnography [facility] Routine JANETT (obstructive sleep apnea) Expected: 12/31/2023 (Approximate), Expires: 12/30/2024 [facility] Work Phone: Comment on above: Expected: 12/31/2023 (Approximate), Expires: 12/30/2024 Start: 12-31-2023 End: 12-31-2023 Patient encounter procedure 12/31/2023 10:00 AM EST Office Visit [facility] [address] [facility] [place] [address] Sivan Villegas DO [address] [place], [place] [phone] [facility] Start: 12-30-2023 End: 12-29-2024 CBC W Auto Differential panel - Blood CBC and differential Lab Routine Type 2 diabetes mellitus with diabetic microalbuminuria, without long-term current use of insulin ([facility]) Essential hypertension Expected: 12/30/2023 (Approximate), Expires: 12/29/2024 [facility] Comment on above: Expected: 12/30/2023 (Approximate), Expires: 12/29/2024 Start: 12-30-2023 End: 12-29-2024 Comprehensive metabolic 2000 panel - Serum or Plasma Comprehensive metabolic panel Lab Routine Type 2 diabetes mellitus with diabetic microalbuminuria, without long-term current use of insulin ([facility]) Essential hypertension Expected: 12/30/2023 (Approximate), Expires: 12/29/2024 [facility] Comment on above: Expected: 12/30/2023 (Approximate), Expires: 12/29/2024 Start: 12-30-2023 End: 12-29-2024 Hemoglobin A1c/Hemoglobin.total in Blood Hemoglobin A1c Lab Routine Type 2 diabetes mellitus with diabetic microalbuminuria, without long-term current use of insulin ([facility]) Expected: 12/30/2023 (Approximate), Expires: 12/29/2024 [facility] Comment on above: Expected: 12/30/2023 (Approximate), Expires: 12/29/2024 Start: 12-30-2023 End: 12-30-2023 Patient encounter procedure 12/30/2023 10:30 AM EST Office Visit [facility] [address] [place] [address] Sonam Drake NP [address] [place] [address] [facility] Start: 11-04-2023 End: 11-04-2023 Patient encounter procedure 11/04/2023 2:30 PM EDT Office Visit [facility] [address] [place] [id number] Sivan Villegas DO [address] [place] [address] [facility] Start: 10-13-2023 Influenza vaccination Influenza Vacc ine (#1) [facility] Start: 08-11-2023 Influenza vaccination Influenza Vacc ine (#1) [facility] Comment on above: Postponed from 10/12 (Patient Refused) Start: 05-02-2023 End: 05-02-2023 Patient encounter procedure 05/02/2023 2:00 PM EDT [facility] [address] [place] [address] Shaikh Connelly MD [address] [place] [address] [facility] Start: 02-17-2023 Hemoglobin A1c measurement Diabetes: Hemoglobin A1C [facility] Start: 09-04-2022 End: 09-04-2022 Patient encounter procedure 09/04/2022 Office Visit Obstetrics and Gynecology Radha Barclay APRN - DILAN [address] [facility] [address] [place] [address] [facility] Start: 10-12-2021 Influenza vaccination Flu vaccine (# 1) [facility] Start: 10-21-2013 Screening for malign ant neoplasm of breast Breast cancer screen [facility] Start: 10-21-2013 Shingles vaccine (1 of 2) [place] g[place] vaccine (1 of 2) [facility] Start: 10-21-2008 Screening for malign ant neoplasm of colon [facility] Start: 2003 Lipid panel Lipids [facility] Start: 10-21-1998 Diabetes screen Diabetes screen [facility] Start: 10-21-1993 Screening for malign ant neoplasm of cervix [facility] Start: 10-21-1982 DTaP/Tdap/Td vaccine (1 - Tdap) DTaP/Tdap/Td vaccine (1 - Tdap) [facility] Start: 10-21-1982 Urine screening for protein Diabetes: Urine Protein Screening [facility] Start: 10-21-1981 Hepatitis C screening Hepatitis C sc reen [facility] Start: 10-21-1978 HIV screening HIV screen [facility] Start: 1975 Depression Screen Depression Screen [facility] Start: 04-20-1964 COVID-19 Vaccine (#1) COVID-19 Vacci ne (#1) [facility] Start: 1963 Screening for malign ant neoplasm of colon [facility] End: 08-30-2021 Cytopathology procedure, preparation of smear, genital source PAP SMEAR Lab Routine Routine cervical smear 1 Occurrences starting 08/30/2021 until 08/30/2021 [facility] Work Phone: Comment on above: 1 Occurrences starti ng 08/30/2021 until 08/30/2021 Microalbumin/Creatin ine panel in random Urine Microalbumin / creatinine urine ratio Lab Routine Type 2 diabetes mellitus with diabetic microalbuminuria, without long-term current use of insulin ([facility]) Essential hypertension Ordered: 12/30/2023 [facility] Work Phone: Comment on above: Ordered: 12/30/2023 Immunizations Immunization Date Immunization Notes Care Provider Tima garcia 01-14-2017 influenza, injectabl e, quadrivalent, preservative [facility] 01-14-2017 influenza virus vaccine, unspecified formulation Sonma Drake NP Work Phone: [facility] Payers Date Payer Category Payer Private Health Insurance [id number] 2022 Unknown [id number] 2012 Medicare [id number] 1963 Unknown [id number] 2.16.8 40.1.013819.3.579.2.173 1963 Unknown [id number] 2.16.84 0.1.673038.3.579.2.593 1963 Unknown [id number] 2.16.84 0.1.578836.3.579.2.593 1963 Unknown [id number] 2.16.84 0.1.713691.3.579.2.593 1963 Unknown [id number] 2.16.84 0.1.924983.3.579.2.593 1963 Unknown [id number] 2.16.84 0.1.504585.3.579.2.593 1963 Unknown [id number] 2.16.84 0.1.508111.3.579.2.593 1963 Unknown [id number] 2.16.84 0.1.849202.3.579.2.593 1963 Unknown [id number] 2.16.84 0.1.961043.3.579.2.593 1963 Unknown [id number] 2.16.84 0.1.092793.3.579.2.593 1963 Unknown [id number] 2.16.84 0.1.508022.3.579.2.593 1963 Unknown [id number] 2.16.84 0.1.591413.3.579.2.593 1963 Unknown [id number] 2.16.84 0.1.713247.3.579.2.593 1963 Unknown [id number] 2.16.84 0.1.811021.3.579.2.593 1963 Unknown [id number] 2.16.84 0.1.595546.3.579.2.593 1963 Unknown [id number] 2.16.84 0.1.947011.3.579.2.593 1963 Unknown [id number] 2.16.84 0.1.735164.3.579.2.593 1963 Unknown [id number] 2.16.84 0.1.871430.3.579.2.1259 1963 Unknown [id number] 2.16.84 0.1.382726.3.579.2.9 1963 Unknown [id number] 2.16.84 0.1.226743.3.579.2.1258 1963 Unknown [id number] 2.16.84 0.1.647206.3.579.2.1258 1963 Unknown [id number] 2.16.84 0.1.999510.3.579.2.1258 1963 Unknown [id number] 2.16.84 0.1.996780.3.579.2.1258 1963 Unknown [id number] 2.16.84 0.1.688055.3.579.2.1258 1963 Unknown [id number] 2.16.84 0.1.123113.3.579.2.9 1959 Medicare [id number] [id number] 1959 Unknown [id number] 1.2.840.641186.1.13.239.2.7.3.047630.315 1959 Unknown [id number] 2.16.8 40.1.197851.19 Medicare Medicare [id number] Self-pay Self Pay [id number] Social History Date Type Detail Facility Start: 08-30-2021 End: 12-31-2023 Tobacco smoking status MIIS Smokes tobacco daily [employer] Phone: History of tobacco use Cigarette Smoker [employer] Phone: Start: 08-30-2021 End: 12-31-2023 Tobacco use and exposure Smokeless tobacco non-user [employer] Phone: Start: 08-30-2021 Alcohol intake Current drinke r of alcohol (finding) [employer] Work Phone: Start: 08-30-2021 History SDOH Alcohol Comment occasional [employer] Phone: Start: 1965 Sex Assigned At Not on file [employer] Phone: Start: 08-20-2021 End: 08-30-2021 Exposure to SARS-CoV-2 (event) Not sure [employer] [facility] Start: 02-25-2023 End: 10-02-2023 Sex Assigned At [facility] Start: 01-29-2023 End: 08-05-2023 Tobacco smoking status MIIS Ex-smoker [facility] History of tobacco use Current smoker [facility] Start: 01-29-2023 End: 10-02-2023 Cigarettes smoked current (pack per day) - Reported 0.5 [facility] Start: 02-25-2023 End: 03-03-2024 Alcohol intake Lifetime non-drinker (finding) [facility] Start: 1965 Sex Assigned At Female F [facility] History of tobacco use Passive smoker [facility] [...] Equipment Origin al Text Equipment Identifier Dates [id number] Start: 06-08-2021 Clinical Notes 06-20-2021 to 03-03-2024 [...] microalbuminuria, without long-term current use of insulin ([facility]) Relevant Medications metFORMIN (Glucophage) 500 MG tablet Continuous Glucose Billing Rep (Dexcom G7 Billing Rep) device Continuous Glucose Sensor (Dexcom G7 Sensor) [...] aura and without status migrainosus, not intractable ([facility]/H[facility]) Relevant Medications divalproex (Depakote) 500 MG EC tablet Other hyperlipidemia ([facility]) Relevant Medications rosuvastatin (Crestor) 20 MG tablet Lumbar back pain Relevant Medications diclofenac (Voltaren) 75 MG EC tablet Other Visit Diagnoses Diabetic polyneuropathy associated with type 2 diabetes mellitus ([facility]) Relevant Medications pregabalin (Lyrica) 75 MG capsule documented in this encounter [facility] 03-03-2024 Instructions Sonam Drake NP - 03/03/2024 [...] calories per day. documented in this encounter [facility] 01-30-2024 Telephone encount er Note GIOVANNA:12/30/2023 NOV:03/26/2024 [facility] 01-30-2024 Miscellaneous Notes Formattin g of this note might be different from the original. GIOVANNA:12/30/2023 NOV:03/26/2024 documented in this encounter [facility] 01-14-2024 Telephone encount er Note GIOVANNA:12/30/2023 NOV:03/26/2023 [facility] 01-14-2024 Miscellaneous Notes Formattin g of this note might be different from the original. GIOVANNA:12/30/2023 NOV:03/26/2023 documented in this encounter [facility] 12-31-2023 History of Presen t illness Narrative Images from the original note were not included. No chief complaint on file. Subjective SLEEP CONSULT REFERRAL: Snoring, concern for JANETT, needing sleep study - labs @ [facility]; referral received from Sonam Drake CNP. [...] was counseled on the risks of stroke, NH, and sudden with JANETT, along with the [...] clinic: 2 months documented in this encounter [facility] 12-30-2023 History of Presen t illness Narrative [...] R ALBUMIN GLOBULIN RATIO 0.8 Resulting Agency [facility] DMII: Metformin Bid and Ozempic Most [...] microalbuminuria, without long-term current use of insulin (CMS/[facility]) - Primary Currently taking Metformin Bid [...] First appointment tomorrow. documented in this encounter [facility] 12-30-2023 Instructions Sonam Drake NP - 12/30/2023 10:30 AM EST FASTING labs ordered. Nothing to eat or drink for 12 hours prior to blood draw. Water and black coffee ok. Call if you need anything! documented in this encounter [facility] 12-17-2023 Telephone encount er Note GIOVANNA:10/03/2023 NOV:12/30/2023 [facility] 12-17-2023 Miscellaneous Notes Formattin g of this note might be different from the original. GIOVANNA:10/03/2023 NOV:12/30/2023 documented in this encounter [facility] 10-03-2023 History of Presen t illness Narrative Associated Problem(s): Snoring Screening for JANETT- Referral sent to [facility] [place] Associated Problem(s): Morbid (severe) obesity due to [...] microalbuminuria, without long-term current use of insulin ([facility]) Metformin Bid and Ozempic Most recent labs: [...] Ref Range & Units 6 mo ago (2/7/24) 6 mo ago (03/20/23) TRIGLYCERIDES <=150 mg/dL [...] R ALBUMIN GLOBULIN RATIO 0.8 Resulting Agency [facility] DMII: Metformin Bid and Ozempic Most [...] microalbuminuria, without long-term current use of insulin ([facility]) Metformin Bid and Ozempic Most recent labs: [...] current use of insulin (CMS/HCC) Relevant Medications semaglutide (Ozempic, 1 MG/DOSE,) 4 MG/3ML solution pen-injector Diabetic polyneuropathy associated with type 2 diabetes mellitus (CMS/HCC) Relevant Medications pregabalin (Lyrica) 75 MG capsule documented in this encounter [facility] 10-03-2023 Instructions Sonam Drake NP - 10/03/2023 [...] day. Consider tracking your food intake on [employer] or [employer] Water: Increase water intake; GOAL [...] you need anything! documented in this encounter [facility] 03-19-2023 Evaluation note Encounter Date Diagnosis Assessment [...] Mar, Left hand pain (ICD-10 - M79.642) [facility] Other 12-13-2023 Evaluation note* Encounter Date Diagnosis [...] noted. Patient will f/u in 4 weeks. [facility] Other 12-08-2023 Evaluation note* Encounter Date Diagnosis [...] left hand x-ray that was performed at [facility] which revealed degenerative changes in the hand as well as a remote avulsion fracture of the thumb. Patient states her family doctor is treating her for gout in her hand. Jan, History of gout (ICD-10 - Z87.39) Jan, Other Gout material w as printed [facility] Other 08-09-2023 Evaluation note* Encounter Date Diagnosis Assessment Notes Treatment Notes Treatment Clinical Notes Sep, Right wrist pain (ICD-10 - M25.531) [facility] Other 04-27-2023 NoteCONSULTATION CONSULTATION DATE: 06/07/2022 TO: [...] our patients to inform us about any gxxa-zgj-xjmyaso medications or herbal remedies/nutritional supplements/alternative remedies. 2. [...] treatment options with their primary care provider.[id number] Evaluation note * Encounter Date Diagnosis Assessment [...] understanding and is agreeable to treatment plan. [facility] Other 01-26-2023 NoteCONSULTATION PROCEDURE DATE: 03/08/2022 PREOPERATIVE [...] will be followed up in the clinic.[id number] NotePROCEDURE: XR KNEE LT 4V or > [...] authenticated by: PATTIE SALTER Date: 2022-02-16 11:29[facility] [id number] NoteCONSULTATION CONSULTATION DATE: 02/09/2022 HISTORY OF PRESENT [...] office today. Patient agrees with this plan.[facility] [id number] NotePROCEDURE: XR WRIST RT MIN 3 V COMPARISON: None. HISTORY: Injury of right wrist FINDINGS: BONES:No acute fracture or dislocation. Corticated bone fragment identified along the first carpometacarpal joint [degenerative in nature SOFT TISSUES:Moderate diffuse soft tissue swelling EFFUSION:None visible. OTHER: Negative. IMPRESSION: Soft tissue swelling, no acute fracture Electronically authenticated by: RYAN GOLDMAN Date: 2021-11-16 18:59[facility] [id number] NoteCONSULTATION CONSULTATION DATE: 11/01/2021 HISTORY OF PRESENT [...] otherwise indicated. Patient agrees with this plan.[facility] [id number] NoteCONSULTATION PROCEDURE DATE: 11/01/2021 PRE AND POSTOPERATIVE [...] will be followed up in the clinic.[facility] [id number] NoteCONSULTATION PROCEDURE DATE: 08/09/2021 PREOPERATIVE DIAGNOSIS: Bilateral [...] followed up in the clinic. [facility] Signed and Approved by: CRYS PIERCE . 08/10/2021 13:37:00[facility] [id number] NoteCONSULTATION CONSULTATION DATE: 07/19/2021 HISTORY OF PRESENT [...] acknowledges and all questions answered. [facility] Signed and Approved by: CRYS PIERCE . 07/20/2021 10:33:00[facility] [id number] NotePROCEDURE: XR FOOT RT MIN 3 VIEWS [...] authenticated by: PATTIE SALTER Date: 2021-07-05 11:11[facility] [id number] NoteCONSULTATION CONSULTATION DATE: 06/20/2021 CHIEF COMPLAINT: Low [...] proceed. CC: Jonathan Edwards M.D. [facility] Signed and Approved by: DR RICARDO HOLM . 06/27/2021 10:40:00[facility]* Diagnosis Routine cervical smear Screening for malignant neoplasm of the cervix documented in this encounter [facility] Work Phone: evaluation note* Diagnosis Diabetic polyneuropathy associated with type 2 diabetes mellitus (CMS/HCC)- Primary documented in this encounter [facility] noteNo assessment information availableDay[facility] Work Phone: Evaluation note* Diagnosis Encounter for [...] diabetes mellitus (CMS/HCC) documented in this encounter [facility]* Diagnosis Encounter for [...] chronicity, unspecified site documented in this encounter [facility]* Diagnosis Encounter for [...] Tobacco use disorder documented in this encounter [facility]* Diagnosis Encounter for screening [...] and stress (male)(female) documented in this encounter [facility]* Diagnosis Encounter for [...] complication, without long-term current use of insulin ([facility]) Back spasm Other symptoms referable to back Closed fracture of proximal end of left fibula with routine healing, unspecified fracture morphology, subsequent encounter Closed nondisplaced fracture of second metatarsal bone of left foot with routine healing, subsequent encounter Other hyperlipidemia ([facility]) Hyperuricemia Other abnormal blood chemistry Osteoporosis, unspecified osteoporosis type, unspecified pathological fracture presence ([facility]) Diabetic polyneuropathy associated with type 2 diabetes mellitus ([facility]) Gastroesophageal reflux disease without esophagitis Esophageal reflux Migraine with aura and without status migrainosus, not intractable ([facility]) Hospital discharge follow-up Other follow-up examination Type 2 diabetes mellitus with diabetic microalbuminuria, without long-term current use of insulin ([facility])- Primary Other hyperlipidemia ([facility]) Essential hypertension Unspecified essential hypertension Bilateral lower extremity edema Lumbar back pain- Primary Lumbago Hospital discharge follow-up Other follow-up examination Essential hypertension- Primary Unspecified essential hypertension Type 2 diabetes mellitus with diabetic microalbuminuria, without long-term current use of insulin ([facility]) Morbid (severe) obesity due to excess calories (E66.01) Other hyperlipidemia ([facility]) Lumbar back pain Lumbago Type 2 diabetes mellitus without complication, without long-term current use of insulin ([facility]) Diabetic polyneuropathy associated with type 2 diabetes mellitus ([facility]) Mixed urge and stress incontinence Mixed incontinence urge and stress (male)(female) Snoring Other dyspnea and respiratory abnormality Encounter for long-term (current) use of high-risk medication Encounter for long-term (current) use of other medications Type 2 diabetes mellitus with diabetic microalbuminuria, without long-term current use of insulin ([facility])- Primary Essential hypertension Unspecified essential hypertension Other hyperlipidemia ([facility]) Snoring Other dyspnea and respiratory abnormality Mixed urge and stress incontinence Mixed incontinence urge and stress (male)(female) Lumbar back pain Lumbago documented in this encounter [facility]* Diagnosis Essential hypertension- Primary Unspecified essential hypertension Type 2 diabetes mellitus with diabetic microalbuminuria, without long-term current use of insulin ([facility]) Morbid (severe) obesity due to excess calories (E66.01) Other hyperlipidemia (CMS/HCC) Lumbar back pain Lumbago Type 2 diabetes mellitus without complication, without long-term current use of insulin (CMS/HCC) Diabetic polyneuropathy associated with type 2 diabetes mellitus (CMS/HCC) Mixed urge and stress incontinence Mixed incontinence urge and stress (male)(female) Snoring Other dyspnea and respiratory abnormality documented in this encounter [facility]* Diagnosis Gout, unspecified cause, unspecified chronicity, unspecified site documented in this encounter [facility]* Diagnosis Diabetic polyneuropathy associated with type 2 diabetes mellitus (CMS/HCC) documented in this encounter [facility]* Diagnosis Encounter for screening [...] of insulin (CMS/HCC) documented in this encounter [facility]* Diagnosis Encounter for [...] microalbuminuria, without long-term current use of insulin ([facility]/HCC)- Primary Essential hypertension Unspecified essential hypertension Other hyperlipidemia (CMS/HCC) Snoring Other dyspnea and respiratory abnormality Mixed urge and stress incontinence Mixed incontinence urge and stress (male)(female) Upper respiratory infection with cough and congestion- Primary Lumbar back pain Lumbago Migraine with aura and without status migrainosus, not intractable (CMS/HCC) Type 2 diabetes mellitus with diabetic microalbuminuria, without long-term current use of insulin ([facility]CC) Diabetic polyneuropathy associated with type 2 diabetes mellitus (CMS/HCC) Other hyperlipidemia (CMS/HCC) documented in this encounter [facility]* Diagnosis Encounter for [...] with routine healing, subsequent encounter Other hyperlipidemia ([facility]) Hyperuricemia Other abnormal blood chemistry Osteoporosis, unspecified osteoporosis type, unspecified pathological fracture presence ([facility]) Diabetic polyneuropathy associated with type 2 diabetes mellitus (CMS/[facility]) Gastroesophageal reflux disease without esophagitis Esophageal reflux Migraine with aura and without status migrainosus, not intractable ([facility]) Hospital discharge follow-up Other follow-up examination Type 2 diabetes mellitus with diabetic microalbuminuria, without long-term current use of insulin ([facility])- Primary Other hyperlipidemia (CMS/HCC) Essential hypertension Unspecified essential hypertension Bilateral lower extremity edema Lumbar back pain- Primary Lumbago Hospital discharge follow-up Other follow-up examination Essential hypertension- Primary Unspecified essential hypertension Type 2 diabetes mellitus with diabetic microalbuminuria, without long-term current use of insulin ([facility]) Morbid (severe) obesity due to excess calories (E66.01) Other hyperlipidemia (CMS/HCC) Lumbar back pain Lumbago Type 2 diabetes mellitus without complication, without long-term current use of insulin ([facility]) Diabetic polyneuropathy associated with type 2 diabetes mellitus ([facility]) Mixed urge and stress incontinence Mixed incontinence urge and stress (male)(female) Snoring Other dyspnea and respiratory abnormality Encounter for long-term (current) use of high-risk medication Encounter for long-term (current) use of other medications Type 2 diabetes mellitus with diabetic microalbuminuria, without long-term current use of insulin ([facility])- Primary Essential hypertension Unspecified essential hypertension Other hyperlipidemia (CMS/HCC) Snoring Other dyspnea and respiratory abnormality Mixed urge and stress incontinence Mixed incontinence urge and stress (male)(female) Upper respiratory infection with cough and congestion- Primary Lumbar back pain Lumbago Migraine with aura and without status migrainosus, not intractable (CMS/HCC) Type 2 diabetes mellitus with diabetic microalbuminuria, without long-term current use of insulin (CMS/HCC) Diabetic polyneuropathy associated with type 2 diabetes mellitus (CMS/HCC) Other hyperlipidemia (CMS/HCC) Osteoporosis, unspecified osteoporosis type, unspecified pathological fracture presence (CMS/HCC) documented in this encounter [facility] HealthcareEvaluation note* Diagnosis Encounter for [...] complication, without long-term current use of insulin ([facility]/HCC) Diabetic polyneuropathy associated with type 2 diabetes mellitus ([facility]/HCC) Mixed urge and stress incontinence Mixed incontinence urge and stress (male)(female) Snoring Other dyspnea and respiratory abnormality Encounter for long-term (current) use of high-risk medication Encounter for long-term (current) use of other medications Type 2 diabetes mellitus with diabetic microalbuminuria, without long-term current use of insulin ([facility]/HCC)- Primary Essential hypertension Unspecified essential hypertension Other hyperlipidemia (CMS/HCC) Snoring Other dyspnea and respiratory abnormality Mixed urge and stress incontinence Mixed incontinence urge and stress (male)(female) Upper respiratory infection with cough and congestion- Primary Lumbar back pain Lumbago Migraine with aura and without status migrainosus, not intractable ([facility]) Type 2 diabetes mellitus with diabetic microalbuminuria, without long-term current use of insulin ([facility]) Diabetic polyneuropathy associated with type 2 diabetes mellitus ([facility]) Other hyperlipidemia ([facility]) Gastroesophageal reflux disease without esophagitis Esophageal reflux documented in this encounter [facility] HealthcareHistory general Narrative - Reported* Type Description Date Medical History GERD (gastroesophageal reflux di sease) Medical History Migraine headache Medical History Arthritis Medical History Edema of both legs Medical History Diabetes mellitus, type 2 Medical History Chronic back pain Surgical History ablasion Surgical History back surgery Surgical History hysterectomy Surgical History tubal ligation Hospitalization History see above [facility] Other Reason for referral (narrative)* Consultation (Routine) - Pending Review Specialty Diagnoses / Procedures Referred By Darren acharya Referred To Contact Neurology Diagnoses Snoring Procedures FL OFFICE/OUTPATIENT [facility] 60 MINUTES Sonam Drake NP [address] [place] [address] Sivan Villegas DO [address] [place] [address] Referral ID Status Reason Start Date Expiration Date Visits Requested Visits Authorized [id number] Pending Review Specialty Services Required 10/03/2023 03/31/2024 1 1 Scheduling Instructions Please include OV note from today * Consultation (Routine) - Pending Review Specialty Diagnoses / Procedures Referred By Contac t Referred To Contact Urology Diagnoses Mixed urge and stress incontinence Procedures FL OFFICE/OUTPATIENT NEW [facility] 60 MINUTES Sonam Drake NP [address] [place] [place] [address] Skinny Villafuerte MD [address] [place] [address] Referral ID Status Reason Start Date Expiration Date Visits Requested Visits Authorized [id number] Pending Review Specialty Services Required 10/03/2023 03/31/2024 [...] Care Teams (unrecognized sec tion and content) Center Maker Hand Relationship Specialty Start Date End Date Sr Jonathan Edwards DO [address] [place] [address] PCP - General Family Medicine 08/30/21 Center [facility] Hand Relationship Specialty Start Date End Date Shaikh [...] April 30, 2023 End: April 30, 2023 Center [facility] Hand Relationship Specialty Start Date End Date Jose Chandler MD [address] [place] [address] PCP - General Family Medicine 12/12/23 Sonam Drake NP [address] [place] [address] Nurse Practitioner Family Medicine 09/24/23 Center [facility] Hand Relationship Specialty Start Date End Date Jose Chandler MD [address] [place] [address] PCP - General Family Medicine 12/12/23 Sonam Drake NP [address] [place] [address] Nurse Practitioner Family Medicine 09/24/23 Center [facility] Hand Relationship Specialty Start Date End Date Jose Chandler MD [address] [place] [address] PCP - General Family Medicine 12/12/23 Sonam Drake NP [address] [place] [address] Nurse Practitioner Family Medicine 09/24/23 Center [facility] Hand Relationship Specialty Start Date End Date Jose Chandler MD [address] [place] [address] PCP - General Family Medicine 12/12/23 Sonam Drake NP [address] [place] [address] Nurse Practitioner Family Medicine 09/24/23 Center [facility] Hand Relationship Specialty Start Date End Date Jose Chandler MD [address] [place] [address] PCP - General Family Medicine 12/12/23 Sonam Drake NP [address] [place] [address] Nurse Practitioner Family Medicine 09/24/23 Center Maker Hand Relationship Specialty Start Date End Date Jose Chandler MD [address] [place] [address] PCP - General Family Medicine 12/12/23 Sonam Drake NP [address] [place] [address] Nurse Practitioner Family Medicine 09/24/23 Center [facility] Hand Relationship Specialty Start Date End Date Jose Chandler MD [address] [place] [address] PCP - General Family Medicine 09/24/23 Sonam Drake NP [address] [place] [address] Nurse Practitioner Family Medicine 09/24/23 Center [facility] Hand Relationship Specialty Start Date End Date Jose Chandler MD [address] [place] [address] PCP - General Family Medicine 09/24/23 Sonam Drake NP [address] [place] [address] Nurse Practitioner Family Medicine 09/24/23 Center Maker Hand Relationship Specialty Start Date End Date Jose Chandler MD [address] [place] [address] PCP - General Family Medicine 09/24/23 Sonam Drake NP [address] [place] [address] Nurse Practitioner Family Medicine 09/24/23 Center Maker Hand Relationship Specialty Start Date End Date Jose Chandler MD [address] [place] [address] PCP - General Family Medicine 09/24/23 Sonam Drake NP [address] [place] [address] Nurse Practitioner Family Medicine 09/24/23 Center Maker Hand Relationship Specialty Start Date End Date Jose Chandler MD [address] [place] [address] PCP - General Family Medicine 12/12/23 Sonam Drake NP [address] [place] [address] Nurse Practitioner Family Medicine 09/24/23 Center Maker Hand Relationship Specialty Start Date End Date Jose Chandler MD [address] [place] [address] PCP - General Family Medicine 12/12/23 Sonam Drake NP [address] [place] [address] Nurse Practitioner Family Medicine 09/24/23 Center Maker Hand Relationship Specialty Start Date End Date Jose Chandler MD [address] [place] [address] PCP - General Family Medicine 12/12/23 Sonam Drake NP [address] [place] [address] Nurse Practitioner Family Medicine 09/24/23 Center Maker Hand Relationship Specialty Start Date End Date Jose Chandler MD [address] [place] [address] PCP - General Family Medicine 12/12/23 Sonam Drake NP [address] [place] [address] Nurse Practitioner Family Medicine 09/24/23 Center Maker Hand Relationship Specialty Start Date End Date Jose Chandler MD [address] [place] [address] PCP - General Family Medicine 12/12/23 Sonam Drake NP [address] [place] [address] Nurse Practitioner Family Medicine 09/24/23 INFORMATION SOURCE (unrecogn ized section and content) DATE CREATED AUTHOR 09/10/2021 [facility] DATE CREATED AUTHOR AUTHOR'S ORGANIZ ATION 06/08/2022 [facility] DATE CREATED AUTHOR AUTHOR'S ORGANIZ ATION 10/06/2023 Rigo Bonilla [facility] DATE CREATED AUTHOR AUTHOR'S ORGANIZ ATION 03/04/2024 [facility] EPIC REASON FOR VISIT (unrecogniz [...] Refill 01/30/2024 Reason Comments Cough Nasal Congestion Reason Onset Date Comments Med Refill 03/09/2024 Goals (unrecognized section and content) Goals may [...] BE BASED ON THE PRIMARY CLINICAL RECORDS. [facility]. provides no warranty or guarantee of the accuracy or completeness of information in this document.
== END 2024-03-18 10:09 | disposition home or self-care (01) ==
LOC: MAMMO 10:08
PROVIDERS: Visit Provider Midwife
DX: Z12.31 Encounter for screening mammogram for malignant neoplasm of breast (principal); Z80.42 Family history of malignant neoplasm of prostate; Z80.8 Family history of malignant neoplasm of other organs or systems
CPT/HCPCS: 77063; 77067

== ENCOUNTER 2024-05-21 11:46 | Outpatient (OUT) | payer OTHER, MEDICARE, SELFPAY ==
--- NOTE | 2024-05-21 12:07 | XR_ITS ---
The [place] [address] Patient Name: KARINA DE OLIVEIRA MRN: [id number] date: 1965 Sex: F Assigned Patient Location: LAB Current Patient Location: LAB Accession/Order Number: [id number] Exam Date: 05/21/2024 13:21 Report Date: 05/21/2024 13:21 At the request of: JOEL EDWARDS NP Procedure: XR knee RT 3V RIGHT KNEE - 3 views CLINICAL HISTORY: right knee pain COMPARISON: Right knee 06/08/2023 FINDINGS: Moderate degenerative changes with chondrocalcinosis of the lateral meniscus and patellofemoral joint space narrowing. Calcified loose bodies are present. No acute bony process. XR/XR knee RT 3V IMPRESSION: MODERATE DEGENERATIVE CHANGES OF THE RIGHT KNEE SIMILAR TO THE PRIOR STUDY WITHOUT ACUTE BONY PROCESS. Impression dictated by: Moustapha Penny Jr., DPasqualeOPasquale05/21/2024 1:21 PM Dictation Location: [place] [address] Electronically authenticated by: [id number] Y Date: 05/21/2024 13:21
[2024-05-21 12:14] LABS: Basophils Absolute Auto 0.1 10^3/uL (0.0-0.1); Basophils Percent Auto 0.5 % (0.2-2.0); Eosinophils Absolute Auto 0.4 10^3/uL (0.0-0.7); Hematocrit 41.6 % (36.0-48.0); Hemoglobin 14.1 g/dL (12.0-16.0); Immature Granulocytes Abs Auto 0.07 10^3/uL (0.00-0.03); Immature Granulocytes Pct Auto 0.6 % (0.0-0.5); Lymphocytes Absolute Auto 3.6 10^3/uL (1.2-3.8); Lymphocytes Percent Auto 32.6 % (20.5-60.0); Mean Corpuscular HGB Conc 33.9 g/dL (29.9-35.2); Mean Corpuscular Hemoglobin 32.3 pg (26.7-34.0); Mean Corpuscular Volume 95.2 fL (81.0-99.0); Mean Platelet Volume 10.7 fL (9.5-13.5); Monocytes Absolute Auto 0.8 10^3/uL (0.3-0.8); Monocytes Percent Auto 6.9 % (1.7-12.0); Neutrophils Absolute Auto 6.2 10^3/uL (1.4-6.5); Neutrophils Percent Auto 55.4 % (43.0-75.0); Platelet Count 193 10^3/uL (150-450); Red Blood Count 4.37 10^6/uL (4.20-5.40); Red Cell Distribution Width 14.6 % (11.0-15.0); White Blood Count 11.1 10^3/uL (4.0-11.0)
[2024-05-21 12:38] LABS: Bilirubin Urine NEGATIVE (NEGATIVE); Blood Urine NEGATIVE (NEGATIVE); Clarity Urine CLEAR (CLEAR); Color Urine YELLOW (YELLOW); Glucose Urine UA NEGATIVE (NEGATIVE); Ketones Urine NEGATIVE (NEGATIVE); Leukocyte Esterase Urine NEGATIVE (NEGATIVE); Nitrite Urine NEGATIVE (NEGATIVE); Protein Urine NEGATIVE (NEG/TRACE); Urine Microscopic Indicated NO; Urobilinogen Urine 0.2 EU/dL (0.2-1.0)
[2024-05-21 12:44] LABS: Alanine Aminotransferase 36 U/L (14-59); Albumin Globulin Ratio 0.8; Albumin Level 3.2 g/dL (3.4-5.0); Alkaline Phosphatase 94 U/L (46-116); Anion Gap 7.2; Aspartate Amino Transferase 20 U/L (15-37); BUN Creatinine Ratio 25.7; Bilirubin Total 0.3 mg/dL (0.2-1.0); Calcium 10.4 mg/dL (8.5-10.1); Carbon Dioxide 32.8 mmol/L (21.0-32.0); Chloride 102 mmol/L (98-107); Chol HDL Ratio 2.1; Cholesterol 98 mg/dL (<=200); Estimated GFR (African America >60 (>=60 mL/min/1.73m^2); Estimated GFR (Non-African Ame 53 (>=60 mL/min/1.73m^2); Glucose 95 mg/dL (74-106); HDL Cholesterol 47 mg/dL (40-60); LDL Cholesterol Calculated 33.8 mg/dL; Sodium 138 mmol/L (136-145); Total Protein 7.2 g/dL (6.4-8.2); Triglycerides 86 mg/dL (<=150); Uric Acid 4.5 mg/dL (2.6-6.0); VLDL CHOLESTEROL 17.2 mg/dL
[2024-05-21 12:50] LABS: Creatinine Urine Random 169.29 mg/dL (20.00-300.00); Microalbum Creatinine Ratio Ur 14.7 mg/g (0.0-29.9); Microalbumin Urine Random 2.5 mg/dL (<=30.0)
[2024-05-22 13:08] LABS: PTH, Intact 8 pg/mL (15-65)
== END 2024-05-21 11:47 | disposition home or self-care (01) ==
LOC: LAB 11:51
PROVIDERS: PCP Nurse Practitioner; Visit Provider Nurse Practitioner
DX: E78.49 Other hyperlipidemia (principal); E11.29 Type 2 diabetes mellitus with other diabetic kidney complication; R80.9 Proteinuria, unspecified; F17.210 Nicotine dependence, cigarettes, uncomplicated; I10 Essential (primary) hypertension; E79.0 Hyperuricemia without signs of inflammatory arthritis and tophaceous disease; R60.0 Localized edema; E83.52 Hypercalcemia; G47.33 Obstructive sleep apnea (adult) (pediatric); M25.561 Pain in right knee
CPT/HCPCS: 36415; 73562; 80053; 80061; 81003; 82043; 82306; 82570; 83970; 84550; 85025

== ENCOUNTER 2024-06-04 09:18 | Outpatient (OUT) | payer OTHER, MEDICARE, SELFPAY ==
--- NOTE | 2024-06-04 09:46 | PM.CN ---
Consult Note: HPI Data of Consult Patient: known to practice within the last 3 years Requesting Physician: Chela Tijerina NP Primary Care Provider: Ameena Vera NP Consult Narrative Reason for consult: f/u Narrative: Brian Weir a pleasant 58 year old female presents for evaluation and management of chronic low back pain. pt has failed to benefit from 6 weeks of provider guided HEP/PT, tylenol, NSAIDs, heat and ice. Recently underwent right and left L4-5 L5-S1 facet RFA with >50% improvement in pain and functional ability ongoing. Pain today 4/10 increasing to 7/10, pain increased with standing, walking, activity, lifting, stairs, bending, twisting, pushing, pulling. Pain improved with lying and reclining. Utilizes baclofen, diclofenac, lyrica, and percocet for pain with moderate relief without side effects. Pt continues to have moderate to severe right sided low back/hip pain cc:: CC: Chela Tijerina NP Review of Systems ROS Status of ROS 10 or more systems reviewed and unremarkable except as noted in history and below Musculoskeletal Reports: back pain and extremity pain PFSH PFSH Medical History Morbid obesity due to excess calories ?E66.01 - Morbid (severe) obesity due to excess calories (ICD-10) Type 2 diabetes mellitus with hyperglycemia ?E11.65 - Type 2 diabetes mellitus with hyperglycemia (ICD-10) HTN (hypertension) ?I10 - Essential (primary) hypertension (ICD-10) Lumbar spondylosis ?M47.816 - Spondylosis without myelopathy or radiculopathy, lumbar region (ICD-10) Fracture of foot ?S92.909A - Unspecified fracture of unspecified foot, initial encounter for closed fracture (ICD-10) Closed fibular fracture ?S82.409A - Unspecified fracture of shaft of unspecified fibula, initial encounter for closed fracture (ICD-10) Fracture of medial cuneiform of left foot ?S92.242A - Displaced fracture of medial cuneiform of left foot, initial encounter for closed fracture (ICD-10) Fracture of metatarsal of left foot, closed ?S92.302A - Fracture of unspecified metatarsal bone(s), left foot, initial encounter for closed fracture (ICD-10) Dislocation of foot, left, closed ?S93.305A - Unspecified dislocation of left foot, initial encounter (ICD-10) Mild protein-calorie malnutrition ?E44.1 - Mild protein-calorie malnutrition (ICD-10) Acute exacerbation of chronic low back pain ?M54.50 - Low back pain, unspecified (ICD-10) ?G89.29 - Other chronic pain (ICD-10) Migraine headache ?G43.909 - Migraine, unspecified, not intractable, without status migrainosus (ICD-10) Hyperlipidemia ?E78.5 - Hyperlipidemia, unspecified (ICD-10) Iron deficiency anemia ?D50.9 - Iron deficiency anemia, unspecified (ICD-10) Lumbar radiculopathy ?M54.16 - Radiculopathy, lumbar region (ICD-10) Chronic prescription opiate use ?Z79.891 - senior care (current) use of opiate analgesic (ICD-10) Sacroiliac joint pain ?M53.3 - Sacrococcygeal disorders, not elsewhere classified (ICD-10) Muscle spasm ?M62.838 - Other muscle spasm (ICD-10) Cervical spondylosis ?M47.812 - Spondylosis without myelopathy or radiculopathy, cervical region (ICD-10) Lumbar stenosis with neurogenic claudication ?M48.062 - Spinal stenosis, lumbar region with neurogenic claudication (ICD-10) Compression fracture of L1 vertebra ?S32.010A - Wedge compression fracture of first lumbar vertebra, initial encounter for closed fracture (ICD-10) Tubal ?O00.109 - Unspecified tubal without intrauterine (ICD-10) TMJ (dislocation of temporomandibular joint) ?S03.00XA - Dislocation of jaw, unspecified side, initial encounter (ICD-10) Upper back pain ?M54.9 - Dorsalgia, unspecified (ICD-10) Back pain ?M54.9 - Dorsalgia, unspecified (ICD-10) Neck pain ?M54.2 - Cervicalgia (ICD-10) Osteoarthritis ?M19.90 - Unspecified osteoarthritis, unspecified site (ICD-10) Obesity ?E66.9 - Obesity, unspecified (ICD-10) Heartburn ?R12 - Heartburn (ICD-10) Acid reflux ?K21.9 - Gastro-esophageal reflux disease without esophagitis (ICD-10) Diabetes ?E11.9 - Type 2 diabetes mellitus without complications (ICD-10) Smoker ?F17.200 - Nicotine dependence, unspecified, uncomplicated (ICD-10) Surgical History S/P lumbar spine operation ?Z98.890 - Other specified postprocedural states (ICD-10) H/O: hysterectomy ?Z90.710 - Acquired absence of both cervix and uterus (ICD-10) Family History Mother Family history of CHF (congestive heart failure) Family history of cancer Family history of diabetes mellitus Family history of hypertension Family history of myocardial infarction Social History Within the past year, how often did you have a drink containing alcohol: monthly or less Smoking status: Light tobacco smoker Non-prescribed substance use: denies use Previous occupational history: retired/disability Highest level of school completed/degree received: high school graduate Are you now , , , , never or living with a partner: In a typical week, how many times do you talk on the telephone with family, friends, or neighbors: 3 or more times per week How often do you get together with friends or relatives: 3 or more times per week How often do you attend buddhist or orthodoxy services: never Little interest or pleasure in doing things: not at all Feeling down, depressed, or hopeless: not at all Feel stressed/tense/nervous/anxious/difficulty sleeping: not at all Do you think of yourself as: straight/heterosexual Gender Identity: female Meds Home Medications and Allergies Home Medications ?Medication ?Instructions ?Recorded ?Confirmed ?Type alendronate 70 mg tablet 70 mg PO QWEEK 07/20/22 01/28/24 History allopurinol 300 mg tablet 300 mg PO DAILY 07/20/22 01/28/24 History aspirin 81 mg tablet,delayed 81 mg PO DAILY 07/20/22 01/28/24 History release (Adult Aspirin Regimen) cholecalciferol (vitamin D3) 25 1,000 unit PO DAILY 07/20/22 01/28/24 History mcg (1,000 unit) capsule diclofenac sodium 75 mg 75 mg PO BID 07/20/22 01/28/24 History tablet,delayed release divalproex 500 mg tablet,delayed 500 mg PO BID 07/20/22 01/28/24 History release (Depakote) glucosamine SHs-G6-[id number] 1 tab PO DAILY 07/20/22 01/28/24 History krzysztof 1,500 mg-400 unit-100 mg tablet (Osteo Bi-Flex (5-Loxin)) lactobacillus combo no.13 1 1 cap PO DAILY 07/20/22 01/28/24 History billion cell capsule,delayed release (Probiotic Pearls Complete) multivitamin 1 tab PO DAILY 07/20/22 01/28/24 History oxycodone-acetaminophen 5 mg-325 1 tab PO DAILY PRN pain 07/20/22 01/28/24 History mg tablet prasterone (dhea) 50 mg capsule 50 mg PO DAILY 07/20/22 01/28/24 History (DHEA) famotidine 20 mg tablet 20 mg PO BID 06/08/23 01/28/24 History metformin 1,000 mg tablet 500 mg PO BID 06/08/23 01/28/24 History rizatriptan 10 mg tablet 10 mg PO Q2H PRN migraine headache 06/08/23 01/28/24 History rosuvastatin 20 mg tablet 20 mg PO DAILY 06/08/23 01/28/24 History pregabalin 75 mg capsule 75 mg PO BID 08/17/23 01/28/24 History semaglutide 1 mg/dose (4 mg/3 mL) 1 mg subcut QWEEK 08/17/23 01/28/24 History subcutaneous pen injector (Ozempic) baclofen 20 mg tablet 20 mg PO TID PRN muscle spasm #60 08/18/23 01/28/24 Rx tabs Allergies Allergy/AdvReac Type Severity Reaction Status Date / Time No Known Drug Allergies Allergy Verified 01/28/24 09:13 Exam Constitutional Documenting provider has reviewed patient's vital signs: yes Common normals: no apparent distress, oriented x3, healthy appearing, alert and well nourished General appearance: cooperative HENMT Common normals: normocephalic, hearing grossly normal bilaterally and moist oral mucous membranes Head and scalp: normocephalic Eye Common normals: PERRL Pupil: PERRL Neck & C-Spine Common normals: full ROM General: normal visual inspection Chest Common normals: inspection of chest normal Respiratory Common normals: normal respiratory effort, no retractions and no use of accessory muscles Back & Pelvis Lumbar spine/lower back: lumbar ROM normal; no pain with ROM, no lumbar spinal tenderness, no paraspinal muscle tenderness and no paraspinal muscle spasm Sacroiliac joints: SI joint(s) abnormal Other: right sij positive paris(patricks), gaenslens, thigh thrust, compression test significant pain and dysthesia over right superior gluteal nerve Neuro Common normals: oriented x3 Sensorium/orientation: alert Motor exam: strength 5/5 throughout and no movement abnormalities noted Psych Common normals: mental status grossly normal, thought process normal, cooperative, affect normal, speech normal and activity/motor behavior normal Speech: normal speech Thought process: normal thought process Results Additional Findings Additional findings: If on a controlled substance or opioids, I have checked an [place] report on this patient and there are no aberrancies noted in the prescribing history.??If on a controlled substance or opioid a drug screen was completed and reviewed within the last year, and if there has not been a drug screen completed we ordered one today to monitor higher risk, state monitored pain medication use. As part of providing excellent, safe, comprehensive care, the following was completed at our patient's visit: 1. A medication reconciliation and review to ensure accurate knowledge of current/active medications, including asking our patients to inform us about any [id number] medications or herbal remedies/nutritional supplements/alternative remedies. 2. A review to specifically ensure our patients have had annual screening for screening for depression, screening for tobacco use, and screening for unhealthy alcohol use. For concerning screenings had a discussion with the patient, provided patient education, and recommended follow-up with primary care provider when appropriate. If patient noted with a risk of falling, they received education on strength, gait, and balance training to prevent future risk of falling. Portions of this note may have been carried over from the previous visit and updated as appropriate. Please note this office utilizes paper charting in addition to the electronic medical record. A list of current medications, vitals, and PMH is available there as the clinical staff outside of myself do not have access to [employer] charting during the clinic day operations. As part of providing quality comprehensive care the current medications, vitals, and PMH were reviewed in the paper chart. Assessment and Plan Assessment and Plan (1) Sacroiliitis: (2) Lumbar spondylosis: (3) Unspecified mononeuropathy of right lower limb: (4) Myalgia, other site: (5) Chronic prescription opiate use: (6) Sacroiliac joint pain: (7) Lumbar stenosis with neurogenic claudication: Plan 58 year old female with low back and right hip pain >12 months unresponsive to heat, ice, tylenol, NSAIDs and > 6 weeks of provider guided HEP. imaging reviewed. dc otc motrin. continue current medications, risks vs benefits reviewed. proceed with right SIJ injection under fluoroscopy. f/u 2 weeks after injection
== END 2024-06-04 09:19 | disposition home or self-care (01) ==
LOC: PM 09:19
PROVIDERS: PCP Nurse Practitioner; Visit Provider Nurse Practitioner
DX: M46.1 Sacroiliitis, not elsewhere classified (principal); M47.816 Spondylosis without myelopathy or radiculopathy, lumbar region; G57.91 Unspecified mononeuropathy of right lower limb; M79.18 Myalgia, other site; Z79.891 Long term (current) use of opiate analgesic; M53.3 Sacrococcygeal disorders, not elsewhere classified; M48.062 Spinal stenosis, lumbar region with neurogenic claudication
CPT/HCPCS: G0463

== ENCOUNTER 2024-06-22 08:56 | Day surgery (SDC) | payer OTHER, MEDICARE, SELFPAY ==
--- OUTSIDE RECORDS SUMMARY | 2024-06-22 09:12 | XMS_ITS | CCD ---
Author Organization [facility] Care Team Providers Care Sign Builder Name Role Phone House DO, Sr Jonathan [...] ., NARENDRANATH Attending Nellie vailable LAKSHMIPATHY ., BERTRANDRANATH Consulting Nellie vailable HOUSE, DR BASURTO Admitting Unavailable HOUSE, DR BASURTO Attending Unavailable HOUSE, DR BASURTO Primary Care Unavailable [place], DR RYAN Guzman Consulting Unavailable HOUSE, DR [...] Unavailable Shaikh Connelly MD Primary Care Provider [phone] Vidal FITTER HELPER, Sonam Unavailable Ramesh HOLLIS, Jose Primary Care Provider Jose Chandler MD Primary Care Provider Vidal FITTER HELPER, Sonam Unavailable [phone] Rock FITTER HELPER, Za Unavailable Sivan Villegas DO Unavailable SHAIKH CONNELLY Attending Unavailable SHAIKH CONNELLY Attending Unavailable SHAIKH CONNELLY Attending Unavailable SONAM DRAKE Attending Unavailabl e VIDAL, SONAM Attending Unavailcurtis e SIVAN VILLEGAS Attending Unavailable SONAM DRAKE Referring Unavailabl e DRAKE, SONAM Attending Chantel DRAKE, SONAM Attending ALICIA Simmons Attending Unavailable ZA WILKERSNO Attending Unavailable AMEENA VERA Attending Unavailable Lui Banks II Attending Lui Monzon II Admitting Chantel e NON STAFF Primary Care Unavailable NON STAFF Primary Care Provider Lui Monzon MD Attending Provider [phone] Medications Current Medications Medication Drug Class(es) Dates Sig (Normalized) Sig (Original) alendronic acid 70 mg oral tablet (20 sources) Bisphosphonate Start: 05-28-2024 take 1 tablet by mouth every week Alendronate (Fosamax) 70 mg tablet Active 70 MG PO every week May 28, 2024 12:00am Start: 03-09-2024 End: 08-24-2024 take 1 tablet [...] sources) Xanthine Oxidase Inhibitor Start: 07-04-2023 End: 08-17-2024 take 1 tablet by mouth once daily allopurinol (Zyloprim) 300 MG tablet Indications: Chronic gout of multiple sites, unspecified cause Take 1 tablet (300 mg) by mouth Daily 90 tablet 1 05/19/2024 08/17/2024 Active take 1 tablet by alonso th every twenty-four hours Allopurinol 300 MG 1 tablet Orally Once a day Active ALLOPURINOL PO T karolyn by mouth 0 Active amoxicillin 875 mg / clavulanate 125 mg oral tablet (4 sources) Penicillin-class Antibacterial Start: 06-11-2024 End: 06-21-2024 take 1 tablet by mouth in the morning amoxicillin-clavulanate (Augmentin) 875-125 MG tablet Indications: Acute non-recurrent sinusitis of other sinus Take 1 tablet (875 mg) by mouth in the morning and 1 tablet (875 mg) before bedtime. Do all this for 10 days. Take with food. 20 tablet 06/11/2024 06/21/2024 Active Start: 03-03-2024 End: 03-10-2024 take 1 tablet [...] aspirin 81 mg delayed release oral tablet (3 sources) Platelet Aggregation Inhibitor, Nonsteroidal Anti-inflammatory Drug Start: 01-12-2017 Aspirin (Kumar Low Dose Aspirin) 81 mg Tablet,Delayed Release (Dr/Ec) Active 81 MG PO Bedtime January 12, 2017 1:00am baclofen 20 mg oral tablet (20 sources) gamma-Aminobutyric Acid-ergic Agonist Start: 05-28-2024 take 1 tablet by mouth twice daily Baclofen 20 mg tablet Active 20 MG PO Twice daily May 28, 2024 12:00am Start: 08-22-2023 End: 08-02-2024 take 1 tablet by mouth three times daily as needed for muscle spasms baclofen (Lioresal) 20 MG tablet Indications: Lumbar back pain Take 1 tablet (20 mg) by mouth 3 (three) times a day as needed for muscle spasms 90 tablet 2 05/04/2024 08/02/2024 Active take 1 tablet by alonso th at bedtime baclofen (Lioresal) 10 MG tablet [...] 0.6 mg oral tablet (20 sources) Start: 05-28-2024 take 1 tablet by mouth once daily Colchicine 0.6 mg tablet Active 0.6 MG PO Daily May 28, 2024 12:00am Start: 03-03-2024 colchicine 0.6 MG tablet TAKE [...] 30 tablet 11/04/2023 12/18/2023 Discontinued Continuous Glucose Network Project Manager (Dexcom G7 Network Project Manager) device (20 sources) Start: 03-03-2024 Continuous Glu cose Network Project Manager (Dexcom G7 Network Project Manager) device Indications: Type 2 diabetes mellitus with diabetic microalbuminuria, without long-term current use of insulin ([facility]) 1 each continuously 1 each 03/03/2024 Active Continuous Glucose Sensor (Dexcom G7 Sensor) [facility] (20 sources) Start: 03-30-2024 Continuous Glu cose Sensor (Dexcom G7 Sensor) [facility] Indications: Type 2 diabetes mellitus with diabetic microalbuminuria, without long-term current use of insulin ([facility]) 1 each continuously 3 each 03/30/2024 Active Start: 03-03-2024 End: 03-30-2024 Continuous Glucose Sensor (D excom G7 Sensor) [facility] [place] Indications: Type 2 diabetes mellitus with diabetic microalbuminuria, without long-term current use of insulin ([facility]) 1 each continuously 3 each 11 03/03/2024 03/30/2024 Discontinued (Reorder) Start: 03-03-2024 Continuous Glu cose Sensor (Dexcom G7 Sensor) [facility] Indications: Type 2 diabetes mellitus with diabetic microalbuminuria, without long-term current use of insulin ([facility]) 1 each continuously 3 each 03/03/2024 Active diclofenac sodium 75 mg delayed release oral tablet (20 sources) Nonsteroidal Anti-inflammatory Drug Start: 07-04-2023 End: [...] tablet 1 07/04/2023 12/31/2023 Start: 08-07-2021 End: 08-17-2024 take 1 tablet by mouth in the morning diclofenac (Voltaren) 75 MG EC tablet Indications: Lumbar back pain Take 1 tablet (75 mg) by mouth in the morning and 1 tablet (75 mg) before bedtime. Do not crush, chew, or split.. 180 tablet 05/19/2024 08/17/2024 Active Voltaren Active famotidine 20 mg oral tablet (20 sources) Histamine-2 Receptor Antagonist Start: 05-19-2024 End: 08-17-2024 take 1 tablet by mouth once daily Famotidine (Pepcid) 20 mg tablet Active 20 MG PO Daily May 28, 2024 12:00am Start: 03-16-2024 End: 08-17-2024 take 1 tablet by mouth in the morning famotidine (Pepcid) 20 MG tablet Indications: Gastroesophageal reflux disease without esophagitis Take 1 tablet (20 mg) by mouth in the morning and 1 tablet (20 mg) before bedtime. 180 tablet 1 05/19/2024 08/17/2024 Active Start: 07-04-2023 End: 03-16-2024 take 1 [...] propionate 0.05 mg/actuat metered dose nasal spray (20 sources) Corticosteroid Start: 03-03-2024 End: 03-03-2025 take 1-2 spray(s) nasal route once daily fluticasone (Flonase) 50 MCG/ACT nasal spray Indications: Upper respiratory infection with cough and congestion Administer 1-2 sprays into each nostril Daily Shake gently. Before first use, prime pump. After use, clean tip and replace cap. 16 g 2 03/03/2024 03/03/2025 Active furosemide 20 mg oral tablet (20 sources) Loop Diuretic Start: 08-05-2023 End: 06-05-2024 furosemide (Lasix) 20 MG tablet Indications: Bilateral lower extremity edema Take 1 tablet (20 mg) by mouth if needed (swelling in legs) Take 20 mg by mouth if needed 30 tablet 1 05/06/2024 Active glimepiride 1 mg oral tablet (10 [...] 06/05/2021 Active hydroCHLOROthiazide 25 mg oral tablet (4 sources) Thiazide Diuretic Start: 08-16-2021 take 1 tablet by mouth once daily hydroCHLOROthiazide (HYDRODIURIL) 25 MG tablet TAKE 1 TABLET BY MOUTH EVERY DAY 0 08/16/2021 Active Start: 01-12-2017 End: 01-15-2017 take 1 tablet by mouth once daily Hydrochlorothiazide 25 mg Tablet Discontinued 25 MG PO Daily January 12, 2017 1:00am January 15, 2017 2:23pm lansoprazole 30 mg delayed release oral capsule (2 sources) Proton Pump Inhibitor Start: 01-12-2017 take 1 capsule by mouth once daily Lansoprazole 30 mg Capsule,Delayed Release(Dr/Ec) Active 30 MG PO Daily January 12, 2017 1:00am metFORMIN hydrochloride 500 mg oral tablet (20 sources) Biguanide Start: 08-07-2021 metFORMIN (GLUCOPHAGE) 500 MG tablet 1,000 mg in the morning and 1,000 mg in the evening. Take with meals. 0 08/07/2021 Active Start: 01-12-2017 End: 06-01-2024 take 1 tablet by mouth in the morning metFORMIN (Glucophage) 500 MG tablet Indications: Type 2 diabetes mellitus with diabetic microalbuminuria, without long-term current use of insulin (CMS/HCC) Take 1 tablet (500 mg) by mouth in the morning and 1 tablet (500 mg) in the evening. Take with meals. 180 tablet 03/03/2024 Active take 1 tablet by alonso th at mealtime, then take 1 tablet by mouth every twenty-four hours metFORMIN, OSM, (Fortamet) 1000 MG 24 hr tablet Take 1,000 mg by mouth in the evening. Take with meals Do not crush, chew, or split. 0 Active methocarbamol 750 mg oral tablet (3 sources) Muscle Relaxant Start: 08-15-2021 take 1 tablet by mouth once daily at bedtime methocarbamol (ROBAXIN) 750 MG tablet TAKE 1 TABLET BY MOUTH EVERY NIGHT AT BEDTIME 0 08/15/2021 Active Start: 01-12-2017 End: 01-15-2017 take 1 tablet by mouth at bedtime as needed for pain Methocarbamol (Robaxin-750) 750 mg Tablet Discontinued 750 MG PO Bedtime as needed for Muscle Pain January 12, 2017 1:00am January 15, 2017 [...] oral capsule (20 sources) Start: 09-05-2023 End: 08-17-2024 take 1 capsule by mouth in the [...] capsule (75 mg) before bedtime. 270 capsule 05/19/2024 08/17/2024 Active Start: 03-21-2023 End: 06-19-2023 take 1 [...] capsule 0 03/21/2023 06/19/2023 Active Start: 01-12-2017 End: 05-28-2024 take 1 capsule by mouth once daily Pregabalin 50 mg capsule Discontinued 50 MG PO Daily January 12, 2017 1:00am May 28, 2024 1:24pm Start: 01-12-2017 End: 05-28-2024 take 2 capsules by mouth at bedtime Pregabalin 50 mg capsule Discontinued 100 MG PO Bedtime January 12, 2017 1:00am May 28, 2024 1:23pm Start: 01-12-2017 take 100 mg by mouth [...] sources) Serotonin-1b and Serotonin-1d Receptor Agonist Start: 5 take 1 tablet by mouth every two hours Rizatriptan (Maxalt) 10 mg tablet Active 0 PO .COMPLEX May 28, 2024 12:00am take 1 tab at onset of headache; if no relief may repeat 1 tab after at least 2 hrs; max = 3 tabs/24 hr PO Start: 05-21-2023 End: 01-16-2024 rizatriptan (Maxalt) 10 MG t ablet Indications: Migraine with aura and without status [...] sources) HMG-CoA Reductase Inhibitor Start: 4 End: 5 take 1 tablet by mouth once daily Rosuvastatin (Crestor) 20 mg tablet Active 20 MG PO Daily May 28, 2024 12:00am take 1 tablet by alonso th every twenty-four hours Crestor 20 MG 1 tablet Orally Once a day Active Semaglutide (Ozempic) 2 mg/dose (8 mg/3 mL) pen injector (1 source) Start: 05-28-2024 inject 2 mg by subcutaneous injection every week Semaglutide (Ozempic) 2 mg/dose (8 mg/3 mL) pen injector Active 2 MG SUBCUT every week May 28, 2024 12:00am Semaglutide, 2 MG/DOSE, (Ozempic, 2 MG/DOSE,) 8 MG/3ML solution pen-injector (7 sources) Start: 05-19-2024 End: 08-11-2024 Semaglutide, 2 MG/DOSE, (Ozempic, 2 MG/DOSE,) 8 MG/3ML solution pen-injector Indications: Type 2 diabetes mellitus with diabetic microalbuminuria, without long-term current use of insulin (CMS/HCC) Inject 2 mg under the skin every 7 (seven) days 9 mL 1 05/19/2024 08/11/2024 Active traZODone hydrochloride 50 mg oral tablet [...] / oxyCODONE hydrochloride 5 mg oral tablet (20 sources) Opioid Agonist Start: 07-20-2022 End: 12-31-2023 take 1 tablet by mouth once daily oxyCODONE-acetamino phen (Percocet) 5-325 MG tablet Take 1 tablet by mouth Daily 07/20/2022 12/31/2023 Discontinued (Med list cleanup) Start: 01-12-2017 Oxycodone-Acet aminophen (Percocet) 10-325 mg Tablet Active 1 TAB PO as needed for Back Pain January 12, 2017 1:00am take 1 tablet by alonso th every six hours Percocet 10-325 MG 1 tablet as needed Orally every 6 hrs Active take 1 tablet by alonso th once as needed oxyCODONE-acetaminophen (PERCOCET) 10-32 5 MG per tablet Percocet 10 mg-325 mg tablet Take 1 tablet as needed by oral route. 0 Active ascorbic acid 100 mg oral tablet (6 sources) Vitamin C Start: 01-12-2017 End: 01-15-2017 [...] mL 02/25/2023 12/31/2023 Discontinued (Med list cleanup) eletriptan 40 mg oral tablet (8 sources) Serotonin-1b and Serotonin-1d Receptor Agonist Start: 01-12-2017 End: 05-28-2024 Eletriptan (Relpax) 40 mg Tablet Discontinued 40 MG PO as needed for Migraine Headache January 12, 2017 1:00am May 28, 2024 1:17pm take 1 tablet by alonso th every twenty-four hours Relpax 40 MG 1 tablet as needed one time Orally Once a day Active indomethacin 50 mg oral capsule (2 sources) Nonsteroidal Anti-inflammatory Drug Start: 01-12-2017 End: 01-15-2017 take 1 capsule by mouth twice daily Indomethacin 50 mg Capsule Discontinued 50 MG PO Twice daily January 12, 2017 1:00am January 15, 2017 2:23pm lactobacillus acidophilus 1.5 mg oral capsule (2 sources) Start: 01-12-2017 End: 01-15-2017 Lactobacillus Acidophilus (Probiotic Acidophilus) 1.5 mg (250 million cell) Capsule Discontinued PO Daily January 12, 2017 1:00am January 15, 2017 2:23pm Uazhjjvensiv-Jh-L pablo-Minerals (Multiple Vitamin, Womens) Tablet (2 sources) Start: 01-12-2017 End: 01-15-2017 Lwbvnzuvmbmj-Au-X pablo-Minerals (Multiple Vitamin, Womens) Tablet Discontinued PO Daily January 12, 2017 1:00am January 15, 2017 2:23pm 1 mg dose 1.5 ml semaglutide 1.34 mg/ml pen injector (12 sources) Start: 03-30-2024 End: 05-19-2024 inject 2 mg by subcutaneous injection every week semaglutide (Ozempic) 2 MG/1.5ML solution pen-injector Indications: Type 2 diabetes mellitus with diabetic microalbuminuria, without long-term current use of insulin (CMS/HCC) Inject 2 mg under the skin 1 (one) time per week 2 each 5 03/30/2024 05/19/2024 Discontinued (Therapy completed) semaglutide (Ozempic, 1 MG/DOSE,) 4 MG/3ML solution [...] Date Episodic/Chronic Acute and unspecified renal failure (2 sources) Acute renal failure syndrome; Translations: [Acute kidney failure, unspecified] 01-23-2023 Episodic Comment on above: Problem List clean-u p per request of Phys. EHR Cmte Diabetes mellitus with complications (20 sources) Polyneuropathy due to type 2 diabetes mellitus; Translations: [Type 2 diabetes mellitus with diabetic polyneuropathy] Onset: 01-29-2023 03-21-2023 Chronic Diabetes mellitus without complication (12 sources) Type 2 diabetes mellitus without complications; Translations: [Type 2 diabetes mellitus without complication] Onset: 07-05-2021 Chronic Disorders of lipid metabolism (20 sources) Hyperlipidemia; Translations: [Other hyperlipidemia] Onset: 05-02-2023 05-02-2023 Chronic Esophageal disorders (3 sources) Gastroesophageal reflux disease without esophagitis; Translations: [Gastro-esophageal reflux disease without esophagitis] 03-16-2024 Chronic Essential hypertension (20 sources) Essential (primary) hypertension; Translations: [Hypertensive disorder] Onset: 04-16-2022 01-13-2017 Chronic Genitourinary symptoms and ill-defined conditions (20 sources) Incontinence; Translations: [Mixed incontinence] Onset: 10-03-2023 10-03-2023 Chronic Gout and other crystal arthropathies (20 sources) Gout; Translations: [Gout, unspecified] Onset: 05-19-2024 Chronic Headache; including migraine (20 sources) Migraine with aura; Translations: [Migraine with aura, not intractable, without status migrainosus] Onset: 05-02-2023 12-17-2023 Chronic Miscellaneous mental health disorders (4 sources) Primary insomnia; Translations: [Primary insomnia] 12-31-2023 Chronic Osteoarthritis (10 sources) Bilateral primary osteoarthritis of knee; Translations: [Arthritis of first carpometacarpal joint of left hand] Onset: 03-08-2022 Chronic Osteoporosis (1 source) Osteoporosis; Translations: [Age-related osteoporosis without current pathological fracture] 03-09-2024 Chronic Other congenital anomalies (2 sources) Non-neoplastic nevus; Translations: [Congenital non-neoplastic nevus] 03-30-2024 Chronic Other connective tissue disease (2 sources) Pain in left hand Episodic Other connective tissue disease (1 source) Personal history of other diseases of the musculoskeletal system and connective tissue Episodic Other hereditary and degenerative nervous system conditions (2 sources) Restless legs; Translations: [Restless legs syndrome] 01-23-2023 Chronic Comment on above: Problem List clean-u p per request of Phys. EHR Cmte Other nervous system disorders (1 source) Other chronic pain; Translations: [OTHER CHRONIC PAIN] Onset: 06-08-2022 Chronic Other nervous system disorders (2 sources) Numbness of face; Translations: [Anesthesia of skin] 01-23-2023 Episodic Comment on above: Problem List clean-u p per request of Phys. EHR Cmte Other non-traumatic joint disorders (4 sources) Pain in right wrist Episodic Other non-traumatic joint disorders (13 sources) Pain in right knee; Translations: [Pain in joint, lower leg] Onset: 05-19-2024 05-19-2024 Episodic Other nutritional; endocrine; and metabolic disorders (20 sources) Hypercalcemia; Translations: [Hypercalcemia] Onset: 05-19-2024 01-23-2023 Chronic Comment on above: Problem List clean-u p per request of Phys. EHR Cmte Other nutritional; endocrine; and metabolic disorders (20 sources) Obesity caused by energy imbalance; Translations: [Morbid (severe) obesity due to excess calories] Onset: 05-02-2023 05-02-2023 Chronic Other nutritional; endocrine; and metabolic disorders (20 sources) Body mass index 40+ - severely obese; Translations: [Body mass index (BMI) 40.0-44.9, adult] Onset: 05-02-2023 05-02-2023 Chronic Other nutritional; endocrine; and metabolic disorders (12 sources) Body mass index 30+ - obesity; Translations: [Body mass index (BMI) 39.0-39.9, adult] Onset: 05-19-2024 05-19-2024 Chronic Other nutritional; endocrine; and metabolic disorders (12 sources) Hyperuricemia; Translations: [Hyperuricemia without signs of inflammatory arthritis and tophaceous disease] Onset: 05-19-2024 05-19-2024 Episodic Other screening for suspected conditions (not mental disorders or infectious disease) (20 sources) Patient encounter status; Translations: [Encounter for screening for malignant neoplasm of cervix] Onset: 01-29-2023 Episodic Other skin disorders (2 sources) Lentiginosis; Translations: [Other melanin hyperpigmentation] 03-30-2024 Episodic Other skin disorders (2 sources) Hidradenitis suppurativa; Translations: [Hidradenitis suppurativa] 03-30-2024 Episodic Other upper respiratory infections (20 sources) Acute upper respiratory infection; Translations: [Acute upper respiratory infection, unspecified] Onset: 01-29-2023 Resolved: 05-19-2024 01-29-2023 Episodic Residual codes; unclassified (20 sources) Obstructive sleep apnea syndrome; Translations: [Obstructive sleep apnea (adult) (pediatric)] Onset: 03-30-2024 12-31-2023 Chronic Residual codes; unclassified (4 sources) Hypersomnia; Translations: [Hypersomnia, unspecified] 12-31-2023 Chronic Residual codes; unclassified (4 sources) Tobacco user; Translations: [Tobacco use] 12-31-2023 Episodic Spondylosis; intervertebral disc disorders; other back problems (11 sources) Spondylosis without myelopathy or radiculopathy, lumbar region; Translations: [Spondylosis without myelopathy or radiculopathy, lumbosacral region] Onset: 07-19-2021 Chronic Substance-related disorders (12 sources) Tobacco dependence caused by cigarettes; Translations: [Nicotine dependence, cigarettes, uncomplicated] Onset: 05-19-2024 05-19-2024 Chronic Unclassified (4 sources) LOW BACK PAIN, UNSPECIFIED; Translations: [LOW BACK PAIN, UNSPECIFIED] Onset: 06-23-2021 Past or Other Problems Problem Classification Problem Date Documented Da te Episodic/Chronic Fracture of lower limb (20 sources) Metatarsal bone fracture; Translations: [Fracture of unspecified metatarsal bone(s), unspecified foot, initial encounter for closed fracture] Onset: 07-04-2023 07-04-2023 Episodic Genitourinary symptoms and ill-defined conditions (20 sources) Increased frequency of urination; Translations: [Frequency of micturition] Onset: 12-30-2023 12-30-2023 Episodic Other aftercare (20 sources) Post-discharge follow-up; [...] [PAIN IN LEFT KNEE] Onset: 02-16-2022 Episodic Residual codes; unclassified (20 sources) Bilateral lower limb edema; Translations: [Localized edema] Onset: 08-05-2023 08-05-2023 Episodic Spondylosis; intervertebral disc disorders; other back problems (20 sources) Muscle spasm of back; Translations: [Sacrococcygeal disorders, not elsewhere classified] Onset: 07-05-2021 07-04-2023 Episodic Unclassified (1 source) LOW BACK PAIN, UNSPECIFIED; Translations: [LOW BACK PAIN, UNSPECIFIED] Onset: 06-20-2021 Unclassified (2 sources) Acute pain of right knee 05-19-2024 Results Test Name Value Interpretation Reference Range Facility X-ray reportOrdered By: Anton Penny on 05-28-2024 Study report [facility] [address] [place] [address] XRay Report Signed Patient: Karina De Oliveira MR#: [id number] : 1965 Acct:[id number] Age/Sex: 58 / F ADM Date: 5 Loc: [facility] Room: Type: [facility] Attending Dr: Lui Banks II, MD Copies to: Lui Banks MD~ Ordering Provider: Lui Banks MD Date of Service: 05/28/24 XR/XR knee RT 4V*: M25.561 - Pain in right knee ([id number]) XR/XR pelvis 1-2V: M25.561 - Pain in right knee AP PELVIS: Right knee 4 views CLINICAL HISTORY: Right knee pain COMPARISON: None Pelvis demonstrates mild degenerative changes of the hips without acute bony process. Additional degenerative changes are seen involving the SI joints and pubic symphysis and visualized lower lumbar spine. Right knee demonstrates moderate degenerative changes with medial weightbearing and patellofemoral joint space narrowing. Calcified loose bodies are noted. Noacute bony process. XR/XR pelvis 1-2V IMPRESSION: MILD DEGENERATIVE CHANGES OF THE HIPS. MODERATE DEGENERATIVE CHANGES OF THE RIGHT KNEE. Impression dictated by: Levon Garcia Jr..OPasquale05/28/2024 3:24 PM Dictation Location: [id number]-22 Transcribed By: LILLY 05/28/24 1524 Dictated By: Moustapha Penny Jr, DO 05/28/24 1523 Signed By: 05/28/24 1524 [facility] XR knee RT 4V*on 05-28-2024 XR knee RT 4V* [facility] [address] [place] [address] XRay Report Signed Patient: Karina De Oliveira MR#: [id number] : 1965 Acct:[id number] Age/Sex: 58 / F ADM Date: 05/28/24 Loc: [facility] Room: Type: [facility] Attending Dr: Lui Banks II, MD Copies to: Lui Banks MD Ordering Provider: Lui Banks MD Date of Service: 05/28/24 XR/XR knee RT 4V*: M25.561 - Pain in right knee ([id number]) XR/XR pelvis 1-2V: M25.561 - Pain in right knee AP PELVIS: Right knee 4 views CLINICAL HISTORY: Right knee pain COMPARISON: None Pelvis demonstrates mild degenerative changes of the hips without acute bony process. Additional degenerative changes are seen involving the SI joints and pubic symphysis and visualized lower lumbar spine. Right knee demonstrates moderate degenerative changes with medial weightbearing and patellofemoral joint space narrowing. Calcified loose bodies are noted. No acute bony process. XR/XR pelvis 1-2V IMPRESSION: MILD DEGENERATIVE CHANGES OF THE HIPS. MODERATE DEGENERATIVE CHANGES OF THE RIGHT KNEE. Impression dictated by: Moustapha Penny Jr., Levon.OPasquale05/28/2024 3:24 PM Dictation Location: RADIO-PC-22 Transcribed By: LILLY 05/28/24 1524 Dictated By: Moustapha Penny Jr, DO 05/28/24 1523 Signed By: 05/28/24 1524 Normal [facility] ALL CBC WITH AUTO DIFFon BASOPHILS ABSOLUTE AUTO 0.1 [facility] Basophils/100 WBC (Bld) 0.5 % 0.2 - 2.0 % [facility] Eosinophils/100 WBC (Bld) 4 % 0.9 - 7.0 % [facility] Erythrocyte distribution width (RBC) [Ratio] 14.6 % 11.0 - 15.0 % [facility] Hematocrit (Bld) [Volume fraction] 41.6 % 36.0 - 48.0 % [facility] Hemoglobin (Bld) [Mass/Vol] 14.1 g/dL 12.0 - 16.0 g/dL [facility] IMMATURE GRANULOCYTES ABS AUTO 0.07 High [facility] Immature granulocytes/100 WBC (Bld) 0.6 % High 0.0 - 0.5 % [facility] Interpretation and review of laboratory results Abnormal [facility] LYMPHOCYTES ABSOLUTE AUTO 3.6 [facility] Lymphocytes/100 WBC (Bld) 32.6 % 20.5 - 60.0 % [facility] MCH (RBC) [Entitic mass] 32.3 pg 26.7 - 34.0 pg [facility] MCHC (RBC) [Mass/Vol] 33.9 g/dL 29.9 - 35.2 g/dL [facility] [place] MCV (RBC) [Entitic vol] 95.2 fL 81.0 - 99.0 fL [facility] Healthcare MONOCYTES ABSOLUTE AUTO 0.8 [facility] Monocytes/100 WBC (Bld) 6.9 % 1.7 - 12.0 % [facility] NEUTROPHILS ABSOLUTE AUTO 6.2 [facility] Neutrophils/100 WBC (Bld) 55.4 % 43.0 - 75.0 % [facility] Platelet mean volume (Bld) [Entitic vol] 10.7 fL 9.5 - 13.5 fL [facility] Healthcare TBH EO # 0.4 [facility] TBH PLT 193 [facility] TB[facility] RBC 4.37 [facility] WBC 11.1 High [facility] XR Knee - right 3 View[address] [address] XRay Report Signed Patient: KARINA DE OLIVEIRA MR#: [id number] : 1965 Acct:[id number] Age/Sex: 58 / F ADM Date: 05/21/24 Loc: LAB Attending Dr: Ameena Vera FITTER HELPER Ordering Physician: Ameena Vera NP Date of Service: 05/21/24 Procedure(s): XR knee RT 3V Accession Number(s): [id number] cc: Ameena Vera FITTER HELPER The [place] [address] Patient Name: KARINA DE OLIVEIRA MRN: [facility]:[id number] date: 1965 Sex: F Assigned Patient Location: LAB Current Patient Location: LAB Accession/Order Number: [id number] Exam Date: 05/21/2024 13:21 Report Date: 05/21/2024 13:21 At the request of: AMEENA VERA NP Procedure: XR knee RT 3V RIGHT KNEE - 3 views CLINICAL HISTORY: right knee pain COMPARISON: Right knee 06/08/2023 FINDINGS: Moderate degenerative changes with chondrocalcinosis of the lateral meniscus and patellofemoral joint space narrowing. Calcified loose bodies are present. No acute bony process. XR/XR knee RT 3V IMPRESSION: MODERATE DEGENERATIVE CHANGES OF THE RIGHT KNEE SIMILAR TO THE PRIOR STUDY WITHOUT ACUTE BONY PROCESS. Impression dictated by: Moustapha Penny Jr., D.O.05/21/2024 1:21 PM Dictation Location: [place] [address] Electronically authenticated by: [id number] Y Date: 05/21/2024 13:21 Dictated By: Moustapha Penny M.D. Signed By: 05/21/24 1324 DD/ 1321 TD/TT: Insurance Actuary: [facility] Radiology, Radiologist, MD - 05/21/2024 [place] [address] XRay Report Signed Patient: KARINA DE OLIVEIRA MR#: [id number] : 1965 Acct:[id number] Age/Sex: 58 / F ADM Date: 05/21/24 Loc: LAB Attending Dr: Ameena Vera NP Ordering Physician: Ameena Vera NP Date of Service: 05/21/24 Procedure(s): XR knee RT 3V Accession Number(s): [id number] cc: Ameena Vera NP [address] [address] Patient Name: KARINA DE OLIVEIRA MRN: [id number] date: 1965 Sex: F Assigned Patient Location: LAB Current Patient Location: LAB Accession/Order Number: [id number] Exam Date: 05/21/2024 13:21 Report Date: 05/21/2024 13:21 At the request of: AMEENA VERA NP Procedure: XR knee RT 3V RIGHT KNEE - 3 views CLINICAL HISTORY: right knee pain COMPARISON: Right knee 06/08/2023 FINDINGS: Moderate degenerative changes with chondrocalcinosis of the lateral meniscus and patellofemoral joint space narrowing. Calcified loose bodies are present. No acute bony process. XR/XR knee RT 3V IMPRESSION: MODERATE DEGENERATIVE CHANGES OF THE RIGHT KNEE SIMILAR TO THE PRIOR STUDY WITHOUT ACUTE BONY PROCESS. Impression dictated by: Moustapha Penny Jr., D.O.05/21/2024 1:21 PM Dictation Location: [place] [address] Electronically authenticated by: [id number] Y Date: 05/21/2024 13:21 Dictated By: Moustapha Penny M.D. Signed By: 05/21/24 1324 DD/ 1321 TD/TT: Insurance Actuary: [facility] Study observation (narrative) [facility] XR Knee - right 3 ViewsOrder ed By: Radiologist Radiology on 05-21-2024 [facility] Work Phone: HbA1c (Bld) [Mass fraction]o n 05-19-2024 Interpretation and review of laboratory results Abnormal [facility] Laboratory - Hematology and Cell countson 05-19-2024 HbA1c (Bld) [Mass fraction] 6.70 % [facility] HbA1c (Bld) [Mass fraction]o n 03-30-2024 Interpretation and review of laboratory results Abnormal [facility] Laboratory - Hematology and Cell countson 03-30-2024 HbA1c (Bld) [Mass fraction] 6.9 % [facility] MM TOMOSYNTHESIS SCREENING B Ion 03-18-2024 The [place] [id number] Mammography Report Signed Patient: KARINA DE OLIVEIRA MR#: [id number] : 1965 Acct:[id number] Age/Sex: 58 / F ADM Date: 03/18/24 Loc: MAMMO Attending Dr: RADHA BARCLAY Ordering Physician: RADHA BARCLAY Results: Date of Service: 03/18/24 Follow Up: Procedure(s): MM tomosynthesis screening BI Accession Number(s): [id number] cc: LOCO DRAKE SUSAN Patient Name: KARINA DE OLIVEIRA MR#: [id number] : 1965 Exam Date: 03/18/2024 Ordering Doctor: DR RADHA BARCLAY [facility] RADIOLOGY REPORT PROCEDURE: MM TOMOSYNTHESIS SCREENING BI COMPARISON: MM TOMOSYNTHESIS SCREENING BI, 03/20/2023. MG MAMM SCREEN 3D [place] CAD, 01/31/2021. MG MAMM SCREEN [place] W CAD, 02/02/2020. MG MAMM [place] SCRN W CAD DIG, 01/22/2013. INDICATIONS: Screening for malignant neoplasm Calculator Name NCI Breast Cancer Risk Assessment Tool 5 Year Breast Cancer Risk 1.30% Lifetime Breast Cancer Risk 6.60% Personal Breast Cancer No Personal Ovarian Cancer No Treatments None Family Cancers Grandfather-maternal with prostate cancer at age 70; Mother with skin cancer at age 71. LOCATION: The [facility] BREAST COMPOSITION: There are scattered areas of fibroglandular density. FINDINGS: DIAGNOSTIC CATEGORY 2--BENIGN FINDING: RIGHT BREAST: No significant suspicious finding. Scattered benign-appearing calcifications are present. No significant change has occurred. LEFT BREAST: No significant suspicious finding. Scattered benign-appearing calcifications are present. No significant change has occurred. RECOMMENDATIONS: ROUTINE MAMMOGRAM AND CLINICAL EVALUATION IN 12 MONTHS. PLEASE NOTE: A NORMAL MAMMOGRAM DOES NOT EXCLUDE THE POSSIBILITY OF BREAST CANCER. A CLINICALLY SUSPICIOUS PALPABLE LUMP SHOULD BE BIOPSIED. Dictated by: Pattie Cortes M.D. on 03/18/2024 at 14:50 Approved by: Pattie Cortes M.D. on 03/18/2024 at 14:53 Dictated By: Pattie Cortes M.D. Signed By: 03/18/244 DD/ 53 TD/TT: Insurance Actuary: [facility] Radiology, Radiologist, MD - 03/18/2024 [place] [address] Mammography Report Signed Patient: KARINA DE OLIVEIRA MR#: [id number] : 1965 Acct:[id number] Age/Sex: 58 / F ADM Date: 03/18/24 Loc: MAMMO Attending Dr: RADHA BARCLAY Ordering Physician: RADHA BARCLAY Results: Date of Service: 03/18/24 Follow Up: Procedure(s): MM tomosynthesis screening BI Accession Number(s): [id number] cc: LOCO DRAKE SUSAN Patient Name: KARINA DE OLIVEIRA MR#: [id number] : 1965 Exam Date: 03/18/2024 Ordering Doctor: DR RADHA BARCLAY [facility] RADIOLOGY REPORT PROCEDURE: MM TOMOSYNTHESIS SCREENING BI COMPARISON: MM TOMOSYNTHESIS SCREENING BI, 03/20/2023. MG MAMM SCREEN 3D [place] CAD, 01/31/2021. MG MAMM SCREEN [place] W CAD, 02/02/2020. MG MAMM [place] SCRN W CAD DIG, 01/22/2013. INDICATIONS: Screening for malignant neoplasm Calculator Name NCI Breast Cancer Risk Assessment Tool 5 Year Breast Cancer Risk 1.30% Lifetime Breast Cancer Risk 6.60% Personal Breast Cancer No Personal Ovarian Cancer No Treatments None Family Cancers Grandfather-maternal with prostate cancer at age 70; Mother with skin cancer at age 71. LOCATION: The [facility] BREAST COMPOSITION: There are scattered areas of fibroglandular density. FINDINGS: DIAGNOSTIC CATEGORY 2--BENIGN FINDING: RIGHT BREAST: No significant suspicious finding. Scattered benign-appearing calcifications are present. No significant change has occurred. LEFT BREAST: No significant suspicious finding. Scattered benign-appearing calcifications are present. No significant change has occurred. RECOMMENDATIONS: ROUTINE MAMMOGRAM AND CLINICAL EVALUATION IN 12 MONTHS. PLEASE NOTE: A NORMAL MAMMOGRAM DOES NOT EXCLUDE THE POSSIBILITY OF BREAST CANCER. A CLINICALLY SUSPICIOUS PALPABLE LUMP SHOULD BE BIOPSIED. Dictated by: Pattie Cortes M.D. on 03/18/2024 at 14:50 Approved by: Pattie Cotres M.D. on 03/18/2024 at 14:53 Dictated By: Pattie Cortes M.D. Signed By: 03/18/24 1454 DD/ 53 TD/TT: Insurance Actuary: [facility] Study observation (narrative) [facility] MM TOMOSYNTHESIS SCREENING B IOrdered By: Radiologist Radiology on 03-18-2024 [facility] Work Phone: ALL CBC WITH AUTO DIFFon BASOPHILS ABSOLUTE AUTO 0.1 [facility] Basophils/100 WBC (Bld) 0.4 % 0.2 - 2.0 % [facility] Eosinophils/100 WBC (Bld) 3.2 % 0.9 - 7.0 % [facility] Erythrocyte distribution width (RBC) [Ratio] 15.6 % High 11.0 - 15.0 % [facility] Hematocrit (Bld) [Volume fraction] 42.4 % 36.0 - 48.0 % [facility] Hemoglobin (Bld) [Mass/Vol] 13.9 g/dL 12.0 - 16.0 g/dL [facility] IMMATURE GRANULOCYTES ABS AUTO 0.09 [facility] Immature granulocytes/100 WBC (Bld) 0.7 % High 0.0 - 0.5 % [facility] Interpretation and review of laboratory results Abnormal [facility] LYMPHOCYTES ABSOLUTE AUTO 3.5 [facility] Lymphocytes/100 WBC (Bld) 27.7 % 20.5 - 60.0 % [facility] MCH (RBC) [Entitic mass] 31.4 pg 26.7 - 34.0 pg [facility] MCHC (RBC) [Mass/Vol] 32.8 g/dL 29.9 - 35.2 g/dL [facility] MCV (RBC) [Entitic vol] 95.7 fL 81.0 - 99.0 fL [facility] MONOCYTES ABSOLUTE AUTO 0.9 [facility] Monocytes/100 WBC (Bld) 7.4 % 1.7 - 12.0 % [facility] NEUTROPHILS ABSOLUTE AUTO 7.7 [facility] Neutrophils/100 WBC (Bld) 60.6 % 43.0 - 75.0 % [facility] Platelet mean volume (Bld) [Entitic vol] 10.9 fL 9.5 - 13.5 fL [facility] TBH EO # 0.4 [facility] PLT 219 [facility] RBC 4.43 [facility] WBC 12.8 [facility] XR LSPINE 2_3 VIEWSon 2022 XR LSPINE [...] greatest at L2-3. Electronically authenticated by: PATTIE CORTES Date: 2022-06-07 11:15 Normal [facility] CBC AUTO DIFFon 04-12-2022 BASO # 0.1 103/ul Normal 0.0-0.1 [facility] Comment on above: Performed By: #### C BC ####[facility] [address] [place] [address]Dr. Ricky Valenzuela Basophils/100 WBC (Bld) 0.5 % Normal 0.2-2.0 [facility] Comment on above: Performed By: #### C BC ####[facility] [address] [place] [address]DrPasquale Valenzuela EO # 0.3 103/ul Normal 0.0-0.7 [facility] Comment on above: Performed By: #### C BC ####[facility] [address] [place] [address]Dr. Ricky Valenzuela Eosinophils/100 WBC (Bld) 3.0 % Normal 0.9-7.0 [facility] Comment on above: Performed By: #### C BC ####[facility] [address] [place], [place] [address]Dr. Ricky Valenzuela Erythrocyte distribution width (RBC) [Ratio] 14.8 % Normal 11.0-15.0 [facility] Comment on above: Performed By: #### C BC ####[facility] [address] [place], [place] [address]Dr. Ricky Valenzuela Hematocrit (Bld) [Volume fraction] 40.6 % Normal 36.0-48.0 [facility] Comment on above: Performed By: #### C BC ####[facility] [address] [place], [place] [address]Dr. Ricky Valenzuela Hemoglobin (Bld) [Mass/Vol] 13.5 g/dL Normal 12.0-16.0 [facility] Comment on above: Performed By: #### C BC ####[facility] [address] [place], [place] [address]Dr. Ricky Valenzuela IG # 0.16 10e3/ul Critically high 0.00-0.03 [facility] Comment on above: Performed By: #### C BC ####[facility] [address] [place], [place] [address]Dr. Ricky Valenzuela IG % 1.4 % Critically high 0.0-0.5 The [facility] Comment on above: Performed By: #### C BC ####[facility] [address] [place], [place] [address]Dr. Ricky Valenzuela LYMPH # 3.4 103/ul Normal 1.2-3.8 [facility] Comment on above: Performed By: #### C BC ####[facility] [address] [place], [place] [address]Dr. Ricky Valenzuela Lymphocytes/100 WBC (Bld) 30.4 % Normal 20.5-60.0 [facility] Comment on above: Performed By: #### C BC ####[facility] [address] [place] [id number]. Ricky Valenzuela MANUAL DIFF REQ NO Normal The [facility] Comment on above: Performed By: #### C BC ####[facility] [address] [place] [id number]. Ricky Valenzuela MCH (RBC) [Entitic mass] 31.8 pg Normal 26.7-34.0 [facility] Comment on above: Performed By: #### C BC ####[facility] [address] [place] [address]Dr. Ricky Valenzuela MCHC (RBC) [Mass/Vol] 33.3 g/dL Normal 29.9-35.2 [facility] Comment on above: Performed By: #### C BC ####[facility] [address] [place] [address]Dr. Ricky Valenzuela MCV (RBC) [Entitic vol] 95.5 fL Normal 81.0-99.0 [facility] Comment on above: Performed By: #### C BC ####[facility] [address] [place] [address]Dr. Ricky Nicolas MONO # 0.9 103/ul Critically high 0.3-0.8 The [facility] Comment on above: Performed By: #### C BC ####[facility] [address] [place] [address]Dr. Lesleysharron Valenzuela Monocytes/100 WBC (Bld) 7.7 % Normal 1.7-12.0 [facility] Comment on above: Performed By: #### C BC ####[facility] [address] [place] [address]Dr. Ricky Valenzuela NEUT # 6.3 103/ul Normal 1.4-6.5 [facility] Comment on above: Performed By: #### C BC ####[facility] [address] [place] [address]Dr. Lesleysharron Valenzuela Neutrophils/100 WBC (Bld) 57.0 % Normal 43.0-75.0 [facility] Comment on above: Performed By: #### C BC ####[facility] [address] [place] [id number]. Ricky Valenzuela Platelet mean volume (Bld) [Entitic vol] 9.8 fL Normal 9.5-13.5 [facility] Comment on above: Performed By: #### C BC ####[facility] [address] [place] [id number]. Ricky Valenzuela PLT 246 103/ul Normal 150-450 [facility] Comment on above: Performed By: #### C BC ####[facility] [address] [place] [address]Dr. Ricky Valenzuela RBC 4.25 106/ul Normal 4.20-5.40 [facility] Comment on above: Performed By: #### C BC ####[facility] [address] [place] [address]Dr. Ricky Valenzuela WBC 11.1 103/ul Critically high 4.0-11.0 The [facility] Comment on above: Performed By: #### C BC ####[facility] [address] [place] [address]Dr. Ricky Valenzuela GLYCOHEMOGLOBIN A1Con 2022 ADA RECOMMENDATION SEE BELOW Normal [facility] Comment on above: Result Comment: ADA RECOMMENDED LIMIT 4.0 - 6.0 ADA THERAPEUTIC TARGET < 7.0 ACTION SUGGESTED > 7.0 Performed By: #### A 1C ####[facility] [address] [place] [address]Dr. Ricky Valenzuela Glucose [Mass/Vol] 160 mg/dL Normal [facility] Comment on above: Performed By: #### A 1C ####[facility] [address] [place] [address]Dr. Ricky Valenzuela HbA1c (Bld) [Mass fraction] 7.2 % Critically high 4.5-6.2 [facility] Comment on above: Performed By: #### A 1C ####[facility] [address] [place] [address]Dr. Ricky Nicolas MICROALBUMIN, RAND URon 03-0 mALB <1.3 Normal <=30.0 [facility] Comment on above: Performed By: #### M ALBR #### [facility] [address] [place] [address] Dr. Ricky Valenzuela PROF 14(COMP METB)on 023 Albumin [Mass/Vol] 3.3 g/dL Critically low 3.4-5.0 Th e [facility] Comment on above: Performed By: #### C MP #### [facility] [address] [place] [address] Dr. Ricky Valenzuela Albumin/Globulin [Mass ratio] 0.9 {ratio} Normal [facility] Comment on above: Performed By: #### C MP #### [facility] [address] [place] [address] Dr. Ricky Valenzuela ALP [Catalytic activity/Vol] 90 U/L Normal 46-116 [facility] Comment on above: Performed By: #### C MP #### [facility] [address] [place] [address] Dr. Ricky Valenzuela ALT [Catalytic activity/Vol] 42 U/L Normal 14-59 [facility] Comment on above: Performed By: #### C MP #### [facility] [address] [place] [address] Dr. Ricky Valenzuela Anion gap [Moles/Vol] 10.1 mmol/L Normal [facility] Comment on above: Performed By: #### C MP #### [facility] [address] [place] [address] Dr. Ricky Valenzuela AST [Catalytic activity/Vol] 21 U/L Normal 15-37 [facility] Comment on above: Performed By: #### C MP #### [facility] [address] [place] [address] Dr. Ricky Valenzuela Bilirubin [Mass/Vol] 0.3 mg/dL Normal 0.2-1.0 [facility] Comment on above: Performed By: #### C MP #### [facility] [address] [place] [address] Dr. Ricky Valenzuela Calcium [Mass/Vol] 9.8 mg/dL Normal 8.5-10.1 [facility] Comment on above: Performed By: #### C MP #### [facility] [address] [place] [address] [address] Ricky Valenzuela Chloride [Moles/Vol] 99 mmol/L Normal 98-107 [facility] Comment on above: Performed By: #### C MP #### [facility] [address] [place] [address] [address] Ricky Valenzuela CO2 [Moles/Vol] 33.7 mmol/L Critically high 21.0-32.0 [facility] Comment on above: Performed By: #### C MP #### [facility] [address] [place] [address] [address] Ricky Valenzuela Creatinine [Mass/Vol] 0.94 mg/dL Normal 0.55-1.02 [facility] Comment on above: Performed By: #### C MP #### [facility] [address] [place] [address] Dr. Ricky Valenzuela EGFR-AF PAKISTANI >60 Normal >=60 [facility] Comment on above: Performed By: #### C MP #### [facility] [address] [place] [address] [address] Ricky Valenzuela EGFR-NON AF PAKISTANI >60 Normal >=60 [facility] Comment on above: Performed By: #### C MP #### [facility] [address] [place] [address] Dr. Ricky Valenzuela Globulin (S) [Mass/Vol] 3.8 g/dL Normal [facility] Comment on above: Performed By: #### C MP #### [facility] [address] [place] [address] [address] Ricky Valenzuela Glucose [Mass/Vol] 168 mg/dL Critically high 74-106 [facility] Comment on above: Performed By: #### C MP #### [facility] [address] [place] [address] [address] Ricky Valenzuela Potassium [Moles/Vol] 4.8 mmol/L Normal 3.5-5.1 [facility] Comment on above: Performed By: #### C MP #### [facility] [address] [place] [address] [address] Ricky Valenzuela Protein [Mass/Vol] 7.1 g/dL Normal 6.4-8.2 [facility] Comment on above: Performed By: #### C MP #### [facility] [address] [place] [address] [address] Ricky Valenzuela Sodium [Moles/Vol] 138 mmol/L Normal 136-145 [facility] Comment on above: Performed By: #### C MP #### [facility] [address] [place] [address] [address] Ricky Valenzuela Urea nitrogen [Mass/Vol] 22.0 mg/dL Critically high 7.0-18.0 [facility] Comment on above: Performed By: #### C MP #### [facility] [address] [place] [address] [address] Ricky Valenzuela Urea nitrogen/Creatinine [Mass ratio] 23.4 mg/mg Normal [facility] Comment on above: Performed By: #### C MP #### [facility] [address] [place] [address] [address] Ricky Valenzuela Cytologyon 08-30-2021 Cytology (NOTE) INTERPRETATION Vaginal material, (ThinPrep vial, Imaging-assisted review): Specimen Adequacy: Satisfactory for evaluation. Descriptive Diagnosis: Negative for intraepithelial lesion or malignancy. Ware Server: CLARK Delacruz(ASCP) Electronically Signed Out /09/07/2021 Source: A: Vaginal material, (ThinPrep vial, Imaging-assisted review) Clinical History Hysterectomy Surgery: Salpingostomy; Ovary removal Z12.4 Encounter for screening for malignant neoplasm of cervix GYNECOLOGIC CYTOLOGY REPORT Patient Name: KARINA DE OLIVEIRA [facility] Rec: [id number] Path Number: [id number] [facility] [employer] ANATOMIC PATHOLOGY [address] [place] [id number] [facility] Comment on above: Performed By: #### P PPVP #### [facility] [email or web address] [address] [place] [id number] [employer] Loader: Luca Cummins MD CBC AUTO DIFFon 08-09-2021 BASO # 0.1 103/ul Normal 0.0-0.1 [facility] Comment on above: Performed By: #### C BC #### [facility] [address] [place] [address] Dr. Ricky Valenzuela Basophils/100 WBC (Bld) 0.8 % Normal 0.2-2.0 [facility] Comment on above: Performed By: #### C BC #### [facility] [address] [place] [address] Dr. Ricky Valenzuela EO # 0.2 103/ul Normal 0.0-0.7 [facility] Comment on above: Performed By: #### C BC #### [facility] [address] [place] [address] Dr. Ricky Valenzuela Eosinophils/100 WBC (Bld) 2.1 % Normal 0.9-7.0 [facility] Comment on above: Performed By: #### C BC #### [facility] [address] [place] [address] Dr. Ricky Valenzuela Erythrocyte distribution width (RBC) [Ratio] 15.2 % Critically high 11.0-15.0 [facility] Comment on above: Performed By: #### C BC #### [facility] [address] [place] [address] Dr. Ricky Valenzuela Hematocrit (Bld) [Volume fraction] 41.5 % Normal 36.0-48.0 [facility] Comment on above: Performed By: #### C BC #### [facility] [address] [place] [address] Dr. Ricky Valenzuela Hemoglobin (Bld) [Mass/Vol] 13.5 g/dL Normal 12.0-16.0 [facility] Comment on above: Performed By: #### C BC #### [facility] [address] [place] [address] Dr. Ricky Valenzuela IG # 0.42 10e3/ul Critically high 0.00-0.03 [facility] Comment on above: Performed By: #### C BC #### [facility] [address] [place] [address] Dr. Ricky Valenzuela IG % 3.8 % Critically high 0.0-0.5 [facility] Comment on above: Performed By: #### C BC #### [facility] [address] [place] [address] Dr. Ricky Valenzuela LYMPH # 3.3 103/ul Normal 1.2-3.8 [facility] Comment on above: Performed By: #### C BC #### [facility] [address] [place] [address] Dr. Ricky Valenzuela Lymphocytes/100 WBC (Bld) 29.1 % Normal 20.5-60.0 [facility] Comment on above: Performed By: #### C BC #### [facility] [address] [place] [address] Dr. Ricky Valenzuela MANUAL DIFF REQ NO Normal [facility] Comment on above: Performed By: #### C BC #### [facility] [address] [place] [address] Dr. Ricky Valenzuela MCH (RBC) [Entitic mass] 32.4 pg Normal 26.7-34.0 [facility] Comment on above: Performed By: #### C BC #### [facility] [address] [place] [address] Dr. Ricky Valenzuela MCHC (RBC) [Mass/Vol] 32.5 g/dL Normal 29.9-35.2 [facility] Comment on above: Performed By: #### C BC #### [facility] [address] [place] [address] Dr. Ricky Valenzuela MCV (RBC) [Entitic vol] 99.5 fL Critically high 81.0-99.0 [facility] Comment on above: Performed By: #### C BC #### [facility] [address] [place] [address] Dr. Ricky Valenzuela MONO # 0.8 103/ul Normal 0.3-0.8 [facility] Comment on above: Performed By: #### C BC #### [facility] [address] [place] [address] Dr. Ricky Valenzuela Monocytes/100 WBC (Bld) 7.5 % Normal 1.7-12.0 [facility] Comment on above: Performed By: #### C BC #### [facility] [address] [address] [address] Ricky Valenzuela NEUT # 6.3 103/ul Normal 1.4-6.5 [facility] Comment on above: Performed By: #### C BC #### [facility] [address] [address] [address] Ricky Valenzuela Neutrophils/100 WBC (Bld) 56.7 % Normal 43.0-75.0 [facility] Comment on above: Performed By: #### C BC #### [facility] [address] [place] [address] Dr. Ricky Valenzuela Platelet mean volume (Bld) [Entitic vol] 9.8 fL Normal 9.5-13.5 [facility] Comment on above: Performed By: #### C BC #### [facility] [address] [place] [address] Dr. Ricky Valenzuela PLT 265 103/ul Normal 150-450 [facility] Comment on above: Performed By: #### C BC #### [facility] [address] [place] [address] Dr. Ricky Valenzuela RBC 4.17 106/ul Critically low 4.20-5.40 [facility] Comment on above: Performed By: #### C BC #### [facility] [address] [place] [address] Dr. Ricky Valenzuela WBC 11.2 103/ul Critically high 4.0-11.0 [facility] Comment on above: Performed By: #### C BC #### [facility] [address] [address] [address] Ricky Valenzuela GLYCOHEMOGLOBIN A1Con 2021 ADA RECOMMENDATION SEE BELOW Normal [facility] Comment on above: Result Comment: ADA RECOMMENDED LIMIT 4.0 - 6.0 ADA THERAPEUTIC TARGET < 7.0 ACTION SUGGESTED > 7.0 Performed By: #### A 1C ####[facility] [id number] [address]Dr. Ricky Valenzuela Glucose [Mass/Vol] 183 mg/dL Normal [facility] Comment on above: Performed By: #### A 1C ####[facility] [id number] [place], [place] [id number]. Ricky Valenzuela HbA1c (Bld) [Mass fraction] 8.0 % Critically high 4.5-6.2 [facility] Comment on above: Performed By: #### A 1C ####[facility] [id number] [id number]. Ricky Valenzuela LIPID PROFILEon 08-09-2021 CHOL-HDL RATIO NORM SEE BELOW Normal [facility] Comment on above: Result Comment: 3.3 - 4.4 LOW RISK 4.4 - 7.1 AVERAGE RISK 7.1 - 11.0 MODERATE RISK >11.0 HIGH RISK Performed By: #### C MP, LIPID #### [facility] [address] [address] [address] Ricky Valenzuela Cholesterol [Mass/Vol] 239 mg/dL Critically high <=200 [facility] Comment on above: Performed By: #### C MP, LIPID #### [facility] [address] [address] [address] Ricky Valenzuela Cholesterol in HDL [Mass/Vol] 36 mg/dL Critically low 40-60 [facility] Comment on above: Performed By: #### C MP, LIPID #### [facility] [address] [address] [address] Ricky Valenzuela Cholesterol in LDL [Mass/Vol] 164.2 mg/dL Normal [facility] Comment on above: Performed By: #### C MP, LIPID #### [facility] [address] [address] [address] Ricky Valenzuela Cholesterol.total/Ch olesterol in HDL [Mass ratio] 6.6 {ratio} Normal [facility] Comment on above: Performed By: #### C MP, LIPID #### [facility] [address] [address] [address] Ricky Valenzuela HDL NORMAL > or = 60 mg/dl - LO W CARDIOVASCULAR RISK <40 mg/dl - HIGH CARDIOVASCULAR RISK Normal [facility] Comment on above: Performed By: #### C MP, LIPID #### [facility] [address] [address] [address] Ricky Valenzuela LDL CALC NORMAL SEE BELOW Normal [facility] Comment on above: Result Comment: <100 mg/dl OPTIMAL 100 - 129 mg/dl NEAR OR ABOVE OPTIMAL 130 - 159 mg/dl BORDERLINE HIGH 160 - 189 mg/dl HIGH >190 mg/dl VERY HIGH Performed By: #### C MP, LIPID #### [facility] [address] [address] [address] Ricky Valenzuela Triglyceride [Mass/Vol] 194 mg/dL Critically high <=150 [facility] Comment on above: Performed By: #### C MP, LIPID #### [facility] [address] [address] [address] Ricky Valenzuela VLDL CALC 38.8 mg/dL Normal [facility] Comment on above: Performed By: #### C MP, LIPID #### [facility] [address] [address] [address] Ricky Valenzuela MICROALBUMIN, RAND URon 07-13 mALB 13.1 mg/L Normal <=30.0 [facility] Comment on above: Performed By: #### M ALBR ####[facility] [id number] [address]Dr. Ricky Valenzuela PROF 14(COMP METB)on 022 Albumin [Mass/Vol] 3.3 g/dL Critically low 3.4-5.0 [facility] Comment on above: Performed By: #### C MP, LIPID #### [facility] [address] [address] [address] Ricky Valenzuela Albumin/Globulin [Mass ratio] 0.8 {ratio} Normal [facility] Comment on above: Performed By: #### C MP, LIPID #### [facility] [address] [address] [address] Ricky Valenzuela ALP [Catalytic activity/Vol] 93 U/L Normal 46-116 [facility] Comment on above: Performed By: #### C MP, LIPID #### [facility] [address] [address] [address] Ricky Valenzuela ALT [Catalytic activity/Vol] 37 U/L Normal 14-59 [facility] Comment on above: Performed By: #### C MP, LIPID #### [facility] [address] [address] [address] Ricky Valenzuela Anion gap [Moles/Vol] 10.9 mmol/L Normal [facility] Comment on above: Performed By: #### C MP, LIPID #### [facility] [address] [address] [address] Ricky Valenzuela AST [Catalytic activity/Vol] 10 U/L Critically low 15-37 [facility] Comment on above: Performed By: #### C MP, LIPID #### [facility] [address] [address] [address] Ricky Valenzuela Bilirubin [Mass/Vol] 0.2 mg/dL Normal 0.2-1.0 [facility] Comment on above: Performed By: #### C MP, LIPID #### [facility] [address] [address] [address] Ricky Valenzuela Calcium [Mass/Vol] 9.0 mg/dL Normal 8.5-10.1 [facility] Comment on above: Performed By: #### C MP, LIPID #### [facility] [address] [address] [address] Ricky Valenzuela Chloride [Moles/Vol] 100 mmol/L Normal 98-107 [facility] Comment on above: Performed By: #### C MP, LIPID #### [facility] [address] [address] [address] Ricky Valenzuela CO2 [Moles/Vol] 32.2 mmol/L Critically high 21.0-32.0 [facility] Comment on above: Performed By: #### C MP, LIPID #### [facility] [address] [address] [address] Ricky Valenzuela Creatinine [Mass/Vol] 0.95 mg/dL Normal 0.55-1.02 [facility] Comment on above: Performed By: #### C MP, LIPID #### [facility] [address] [address] [address] Ricky Valenzuela EGFR-AF PAKISTANI >60 Normal >=60 [facility] Comment on above: Performed By: #### C MP, LIPID #### [facility] [address] [address] [address] Ricky Valenzuela EGFR-NON AF PAKISTANI >60 Normal >=60 [facility] Comment on above: Performed By: #### C MP, LIPID #### [facility] [address] [address] [address] Ricky Valenzuela Globulin (S) [Mass/Vol] 4.2 g/dL Normal [facility] Comment on above: Performed By: #### C MP, LIPID #### [facility] [address] [place] [address] Dr. Ricky Valenzuela Glucose [Mass/Vol] 200 mg/dL Critically high 74-106 [facility] Comment on above: Performed By: #### C MP, LIPID #### [facility] [address] [place] [address] Dr. Ricky Valenzuela Potassium [Moles/Vol] 4.1 mmol/L Normal 3.5-5.1 [facility] Comment on above: Performed By: #### C MP, LIPID #### [facility] [address] [place] [address] Dr. Ricky Valenzuela Protein [Mass/Vol] 7.5 g/dL Normal 6.4-8.2 [facility] Comment on above: Performed By: #### C MP, LIPID #### [facility] [address] [place] [address] Dr. Ricky Valenzuela Sodium [Moles/Vol] 139 mmol/L Normal 136-145 [facility] Comment on above: Performed By: #### C MP, LIPID #### [facility] [address] [place] [address] Dr. Ricky Valenzuela Urea nitrogen [Mass/Vol] 13.0 mg/dL Normal 7.0-18.0 [facility] Comment on above: Performed By: #### C MP, LIPID #### [facility] [address] [address] [address] Ricky Valenzuela Urea nitrogen/Creatinine [Mass ratio] 13.7 mg/mg Normal [facility] Comment on above: Performed By: #### C MP, LIPID #### [facility] [address] [address] [address] Ricky Valenzuela POINT OF CARE GLUCOSEon 05- Glucose [Mass/Vol] 176 mg/dL Critically high 74-106 [facility] Comment on above: Performed By: #### P OCGLUC #### [facility] [address] [address] [address] Ricky Valenzuela Vital Signs Date Time Vital Sign Value Performing Clinician Facility 05-28-2024 13:16-0400 Body height 154.94 cm [facility] 05-28-2024 13:16-0400 Body mass index (BMI) [Ratio] 39.4 kg/m2 [facility] 05-28-2024 13:16-0400 Body weight 94.8 kg [facility] 05-19-2024 11:10-0400 Body height 157.5 cm Ameena Vera [employer] Work Phone: [facility] 05-19-2024 11:10-0400 Body mass index (BMI) [Ratio] 39.03 kg/m2 Ameenaovidio Vera [employer] Work Phone: [facility] 05-19-2024 11:10-0400 Body temperature 98.29 [degF] Ameena Vera [employer] Work Phone: [facility] 05-19-2024 11:10-0400 Body weight 96.8 kg Ameena Chuy [employer] Work Phone: [facility] 05-19-2024 11:10-0400 Diastolic blood pressure 80 mm[Hg] Ameena Chuy [employer] Work Phone: [facility] 05-19-2024 11:10-0400 Heart rate 91 /min Ameena Vera [employer] Work Phone: [facility] 05-19-2024 11:10-0400 Respiratory rate 18 /min Ameena Vera [employer] Work Phone: [facility] 05-19-2024 11:10-0400 SaO2% (BldA) [Mass fraction] 96 % Ameena Vera [employer] Work Phone: [facility] 05-19-2024 11:10-0400 Systolic blood pressure 116 mm[Hg] Ameena Vera [employer] Work Phone: [facility] 04-21-2024 13:08-0400 Body height 157.5 cm Za Gillmor [employer] Work Phone: [facility] 04-21-2024 13:08-0400 Body mass index (BMI) [Ratio] 39.51 kg/m2 Za Gillmor [employer] Work Phone: [facility] 04-21-2024 13:08-0400 Body weight 97.98 kg Za Tikamor [employer] Work Phone: [facility] 04-21-2024 13:08-0400 Diastolic blood pressure 86 mm[Hg] Za Tikamor [employer] Work Phone: [facility] 04-21-2024 13:08-0400 Heart rate 96 /min Za Tikamor [employer] Work Phone: [facility] 04-21-2024 13:08-0400 SaO2% (BldA) [Mass fraction] 93 % Za Tikamor [employer] Work Phone: [facility] 04-21-2024 13:08-0400 Systolic blood pressure 148 mm[Hg] Za Gillmor [employer] Work Phone: [facility] 03-30-2024 09:40-0500 Body height 157.5 cm Sonam Drake [employer] Work Phone: [facility] 03-30-2024 09:40-0500 Body mass index (BMI) [Ratio] 39.51 kg/m2 Sonam Drake [employer] Work Phone: [facility] 03-30-2024 09:40-0500 Body temperature 97.3 [degF] Sonam Drake [employer] Work Phone: [facility] 03-30-2024 09:40-0500 Body weight 97.98 kg Sonam Drake [employer] Work Phone: [facility] 03-30-2024 09:40-0500 Diastolic blood pressure 74 mm[Hg] Sonam Drake [employer] Work Phone: [facility] 03-30-2024 09:40-0500 Heart rate 76 /min Sonam Drake [employer] Work Phone: [facility] 03-30-2024 09:40-0500 Respiratory rate 16 /min Sonam Drake [employer] Work Phone: [facility] 03-30-2024 09:40-0500 SaO2% (BldA) [Mass fraction] 98 % Sonam Drake [employer] Work Phone: [facility] 03-30-2024 09:40-0500 Systolic blood pressure 130 mm[Hg] Sonam Drake [employer] Work Phone: [facility] 03-03-2024 10:13-0500 Body height 157.5 cm Sonam Drake [employer] Work Phone: [facility] 03-03-2024 10:13-0500 Body mass index (BMI) [Ratio] 39.51 kg/m2 Sonam Drake [employer] Work Phone: [facility] 03-03-2024 10:13-0500 Body temperature 97.2 [degF] Sonam Drake [employer] Work Phone: [facility] 03-03-2024 10:13-0500 Body weight 97.98 kg Sonam Drake [employer] Work Phone: [facility] 03-03-2024 10:13-0500 Diastolic blood pressure 76 mm[Hg] Sonam Drake [employer] Work Phone: [facility] 03-03-2024 10:13-0500 Heart rate 84 /min Sonam Drake [employer] Work Phone: [facility] 03-03-2024 10:13-0500 Respiratory rate 16 /min Sonam Drake [employer] Work Phone: [facility] 03-03-2024 10:13-0500 SaO2% (BldA) [Mass fraction] 96 % Sonam Drake [employer] Work Phone: [facility] 03-03-2024 10:13-0500 Systolic blood pressure 120 mm[Hg] Sonam Drake [employer] Work Phone: [facility] 12-31-2023 10:06-0500 Body height 157.5 cm Sivan Solo DO Work Phone: [facility] 12-31-2023 10:06-0500 Body mass index (BMI) [Ratio] 39.14 kg/m2 Sivan Solo DO Work Phone: [facility] 12-31-2023 10:06-0500 Body weight 97.07 kg Sivan Solo DO Work Phone: [facility] 12-31-2023 10:06-0500 Diastolic blood pressure 72 mm[Hg] Sivan Solo DO Work Phone: [facility] 12-31-2023 10:06-0500 Heart rate 95 /min Sivan Solo DO Work Phone: [facility] 12-31-2023 10:06-0500 SaO2% (BldA) [Mass fraction] 97 % Sivan Solo DO Work Phone: [facility] 12-31-2023 10:06-0500 Systolic blood pressure 118 mm[Hg] Sivan Solo DO Work Phone: [facility] 12-30-2023 10:46-0500 Body mass index (BMI) [Ratio] 40.06 kg/m2 Sonam Drake [employer] Work Phone: [facility] 12-30-2023 10:46-0500 Body weight 99.34 kg Sonam Drake [employer] Work Phone: [facility] 12-30-2023 10:46-0500 Diastolic blood pressure 74 mm[Hg] Sonam Drake [employer] Work Phone: [facility] 12-30-2023 10:46-0500 Heart rate 97 /min Sonam Drake [employer] Work Phone: [facility] 12-30-2023 10:46-0500 SaO2% (BldA) [Mass fraction] 98 % Sonam Drake [employer] Work Phone: [facility] 12-30-2023 10:46-0500 Systolic blood pressure 98 mm[Hg] Sonam Drake [employer] Work Phone: [facility] 10-03-2023 10:07-0400 Body height 157.5 cm Sonam Drake [employer]PER Work Phone: [facility] 10-03-2023 10:07-0400 Body mass index (BMI) [Ratio] 39.32 kg/m2 Sonam Drake [employer] Work Phone: [facility] 10-03-2023 10:07-0400 Body temperature 97.5 [degF] Sonam Drake [employer] Work Phone: [facility] 10-03-2023 10:07-0400 Body weight 97.52 kg Sonam Drake [employer] Work Phone: [facility] 10-03-2023 10:07-0400 Diastolic blood pressure 70 mm[Hg] Sonam Drake [employer]PER Work Phone: [facility] 10-03-2023 10:07-0400 Heart rate 107 /min Sonam Drake [employer] Work Phone: [facility] Comment on above: 97% O2 10-03-2023 10:07-0400 Systolic blood pressure 90 mm[Hg] Sonam Drake [employer] Work Phone: [facility] 01-18-2023 09:10-0500 Body height 156.21 cm Elle Hendricks Other [facility] Other 01-18-2023 09:10-0500 Body mass index (BMI) [Ratio] 42.82 kg/m2 Elle Ruthie Other [employer] Other 01-18-2023 09:10-0500 Body temperature 98.2 [degF] Elle Ruthie Other [employer] Other 01-18-2023 09:10-0500 Body weight 104.51 kg Elle Ruthie Other [employer] Other 01-18-2023 09:10-0500 Diastolic blood pressure 92 mm[Hg] Elle Ruthie Other [employer] Other 01-18-2023 09:10-0500 Respiratory rate 18 /min Ellesasha Hendricks Other [employer] Other 01-18-2023 09:10-0500 SaO2% (BldA) [Mass fraction] 97 % Elle Ruthie Other [employer] Other 01-18-2023 09:10-0500 Systolic blood pressure 145 mm[Hg] Elle Ruthie Other [employer] Other Encounters Encounter Date Encounter Type Care Provider Facility Start: 06-11-2024 End: 06-11-2024 Refill Ameena Vera [employer] Work Phone: [facility] Comment on above: Acute non-recurrent sinusitis of other sinus (Primary Dx) Start: 06-03-2024 End: 06-03-2024 Orders Only Ameena Vera [employer] Work Phone: [facility] Comment on above: Hypercalcemia (Prima ry Dx); Low serum parathyroid hormone (PTH) Start: 05-28-2024 End: 05-28-2024 Patient encounter procedure [facility] Work Phone: Start: 05-28-2024 End: 05-28-2024 Patient encounter procedure [facility] Start: 05-28-2024 End: 05-28-2024 ambulatory uLi Banks II Facility:[facility] Start: 05-22-2024 End: 05-22-2024 Orders Only Ameena Vera [employer] Work Phone: [facility] Comment on above: Hypercalcemia (Prima ry Dx) Start: 05-21-2024 End: 05-21-2024 Clinisync Result Encounter Ameena Chuy [employer] Work Phone: [facility] External Department Unsolicited Start: 05-21-2024 End: 05-21-2024 Clinisync Result Encounter Ameena Chuy [employer] Work Phone: [facility] External Department Unsolicited Start: 05-19-2024 End: 05-19-2024 Bamboo flowsheet Ameena Chuy [employer] Work Phone: [facility] Start: 05-19-2024 End: 05-19-2024 Bamboo flowsheet Ameena Chuy [employer] Work Phone: [facility] Start: 05-19-2024 End: 05-19-2024 ambulatory AMEENA CHUY Not Available Start: 05-19-2024 End: 05-19-2024 Office outpatient visit 25 minutes Ameena Vera [employer] Work Phone: [facility] Comment on above: Type 2 diabetes cory itus with diabetic microalbuminuria, without long-term current use of insulin ([facility]) (Primary Dx); Morbid (severe) obesity due to excess calories ([facility]); Other hyperlipidemia; Body mass index (BMI) 39.0-39.9, adult; JANETT (obstructive sleep apnea); Bilateral lower extremity edema; Migraine with aura and without status migrainosus, not intractable ([facility]); Cigarette nicotine dependence without complication; Hypercalcemia; Essential hypertension; Elevated blood uric acid level; Lumbar back pain; Gastroesophageal reflux disease without esophagitis; Chronic gout of multiple sites, unspecified cause; Acute pain of right knee; Diabetic polyneuropathy associated with type 2 diabetes mellitus ([facility]) Start: 05-06-2024 End: 05-06-2024 Mikkiill Jose Chandler MD Work Phone: [facility] Comment on above: Bilateral lower extr emity edema (Primary Dx) Start: 04-21-2024 End: 04-21-2024 Bamboo flowsheet Za Wilkerson [employer] Work Phone: [facility] Start: 04-21-2024 End: 04-21-2024 Bamboo flowspriya Wilkerson [employer]PER Work Phone: [facility] Start: 04-21-2024 End: 04-21-2024 ambulatory ZA WILKERSON Not Available Start: 04-21-2024 End: 04-21-2024 Office outpatient visit 25 minutes Za Wilkerson [employer] Work Phone: [facility] Comment on above: JANETT (obstructive sle ep apnea) (Primary Dx); Hypersomnia; Snoring; Primary insomnia; Tobacco abuse Start: 03-30-2024 End: 03-30-2024 Bamboo flowsheet Sonam Drake [employer] HELPER Work Phone: [facility] Start: 03-30-2024 End: 03-30-2024 Bamboo flowsheet Sonam Drake [employer] HELPER Work Phone: [facility] Start: 03-30-2024 End: 03-30-2024 Office outpatient visit 15 minutes Alicia Monroy MD Work Phone: [facility] Comment on above: Hidradenitis suppura tiva (Primary Dx); Lentigines; Melanocytic nevus of trunk; Congenital non-neoplastic nevus; History of basal cell carcinoma Start: 03-30-2024 End: 03-30-2024 Refill Jolly Castaneda MA [facility] Comment on above: Type 2 diabetes cory itus with diabetic microalbuminuria, without long-term current use of insulin ([facility]) Start: 03-30-2024 End: 03-30-2024 Office outpatient visit 15 minutes Sonam Drake [employer] HELPER Work Phone: [facility] Comment on above: Type 2 diabetes cory itus with diabetic microalbuminuria, without long-term current use of insulin ([facility]) (Primary Dx); Essential hypertension; Other hyperlipidemia ([facility]); JANETT (obstructive sleep apnea); Type 2 diabetes mellitus without complication, without long-term current use of insulin ([facility]) Start: 03-18-2024 End: 03-18-2024 Clinisync Result Encounter Generic External Data Provider [facility] External Department Unsolicited Start: 03-18-2024 End: 03-18-2024 Clinisync Result Encounter Generic External Data Provider [facility] External Department Unsolicited Start: 03-16-2024 End: 03-16-2024 Refill Sonam Drake [employer] HEL[employer] Work Phone: [facility] Comment on above: Gastroesophageal ref lux disease without esophagitis Start: 03-09-2024 End: 03-09-2024 Refill Sonam Drake [employer]PER Work Phone: [facility] Comment on above: Osteoporosis, unspec ified osteoporosis type, unspecified pathological fracture presence ([facility]) Start: 03-03-2024 End: 03-03-2024 Bamboo flowsheet Sonam Drake [employer] HELPER Work Phone: [facility] Start: 03-03-2024 End: 03-03-2024 Bamboo flowsheet Sonam Drake [employer]TER HELPER Work Phone: [facility] Start: 03-03-2024 End: 03-03-2024 ambulatory SONAM DRAKE Not Available Start: 03-03-2024 End: 03-03-2024 Office outpatient visit 10 minutes Sonam Drake [employer] Work Phone: [facility] Comment on above: Upper respiratory in fection with cough and congestion (Primary Dx); Lumbar back pain; Migraine with aura and without status migrainosus, not intractable ([facility]); Type 2 diabetes mellitus with diabetic microalbuminuria, without long-term current use of insulin ([facility]); Diabetic polyneuropathy associated with type 2 diabetes mellitus ([facility]); Other hyperlipidemia ([facility]) Start: 01-30-2024 End: 01-30-2024 Refill Jolly Castaneda MA [facility] Comment on above: Lumbar back pain (Pr imary Dx); Type 2 diabetes mellitus with diabetic microalbuminuria, without long-term current use of insulin ([facility]) Start: 01-14-2024 End: 01-14-2024 Refill Jolly Castaneda MA [facility] Comment on above: Lumbar back pain Start: 12-31-2023 End: 12-31-2023 Clinisync Result Encounter Sonam Drake [employer] Work Phone: [facility] External Department Unsolicited Start: 12-31-2023 End: 12-31-2023 Clinisync Result Encounter Sonam Drake [employer] Work Phone: [facility] External Department Unsolicited Start: 12-31-2023 End: 12-31-2023 Office consultation new/estab patient 60 min Sivan Villegas DO Work Phone: [facility] Comment on above: JANETT (obstructive sle ep apnea) (Primary Dx); Hypersomnia; Snoring; Primary insomnia; Tobacco abuse Start: 12-31-2023 End: 12-31-2023 ambulatory SIVAN VILLEGAS Not Available Start: 12-30-2023 End: 12-30-2023 Bamboo flowsheet Sonam Drake [employer] HELPER Work Phone: [facility] Start: 12-30-2023 End: 12-30-2023 Bamboo flowsheet Sonam Drake [employer]TER HELPER Work Phone: [facility] Start: 12-30-2023 End: 12-30-2023 Office outpatient visit 15 minutes Sonam Drake [employer] Work Phone: [facility] Comment on above: Type 2 diabetes cory itus with diabetic microalbuminuria, without long-term current use of insulin ([facility]) (Primary Dx); Essential hypertension; Other hyperlipidemia (CMS/HCC); Snoring; Mixed urge and stress incontinence Start: 12-30-2023 End: 12-30-2023 ambulatory SONAM DRAKE Not Available Start: 12-17-2023 End: 12-17-2023 Refill Jolly Castaneda MA [facility] Comment on above: Migraine with aura a nd without status migrainosus, not intractable (CMS/HCC); Diabetic polyneuropathy associated with type 2 diabetes mellitus (CMS/HCC) Start: 12-17-2023 End: 12-18-2023 Refill Sonam Drake [employer] Work Phone: [facility] Comment on above: Gout, unspecified ca use, unspecified chronicity, unspecified site Start: 11-04-2023 End: 11-04-2023 Refill Stiven Omalley MA [facility] Comment on above: Gout, unspecified ca use, unspecified chronicity, unspecified site Start: 11-01-2023 End: 11-02-2023 Refill Stiven Omalley MA [facility] Comment on above: Diabetic polyneuropa thy associated with type 2 diabetes mellitus (CMS/HCC) Start: 10-04-2023 ambulatory Facility:[facility] Start: 10-03-2023 End: 10-03-2023 Bamboo flowsheet Sonam Drake [employer]TER HEL[employer] Work Phone: [facility] Start: 10-03-2023 End: 10-03-2023 Bamboo flowsheet Sonam Drake [employer] Work Phone: [facility] Start: 10-03-2023 End: 10-03-2023 ambulatory SONAM DRAKE Not Available Start: 10-03-2023 End: 10-03-2023 Office outpatient visit 25 minutes Sonam Drake [employer] Work Phone: [facility] Comment on [...] Available Start: 08-05-2023 End: 08-05-2023 ambulatory SHAIKH MARICEL Not Available Start: 07-04-2023 End: 07-04-2023 ambulatory SHAIKH MARICEL Not Available Start: 04-30-2023 End: 04-30-2023 ambulatory [facility] Work Phone: Start: 04-30-2023 End: 04-30-2023 Patient encounter procedure [facility] Work Phone: Start: 03-21-2023 Orders Only Shaikh Maricel HOLLIS Work Phone: [facility] Comment on above: Diabetic polyneuropa thy associated with type 2 diabetes mellitus (CMS/HCC) (Primary Dx) Start: 03-19-2023 End: 03-19-2023 ambulatory Ana Luisa Curtis Other [employer] Other Start: 03-19-2023 Office outpatient vi sit 15 minutes Ana Luisa Calvey [facility] Start: 01-23-2023 End: 01-23-2023 ambulatory Ana Luisa Calvey Other [employer] Other Start: 01-23-2023 Office outpatient vi sit 15 minutes Ana Luisa Calvey [facility] Start: 01-18-2023 End: 01-18-2023 ambulatory Elle Ruthie Other [employer] Other Start: 01-18-2023 Office outpatient vi sit 15 minutes Elle Ruthie [facility] Start: 09-19-2022 End: 09-19-2022 ambulatory Ana Luisa [place] Other [employer] Other Start: 09-19-2022 Telephone encounter Ana Luisa Curtis [facility] Start: 07-12-[address] JONATHAN EDWARDS Facili ty:[facility]1 Start: 06-07-2022 End: 06-08-[address] JONATHAN EDWARDS Facility:[facility] Start: 05-02-2022 End: 05-02-2022 ambulatory Ana Luisa Julianosteve Other [employer] Other Start: 05-02-2022 Office outpatient ne w 30 minutes Ana Luisa Calvey [facility] Start: 04-12-2022 End: 04-13-[address] JONATHAN EDWARDS Facility:[facility] Start: 03-08-2022 End: 03-09-[address] JONATHAN EDWARDS Facility:[facility] Start: 02-16-2022 End: 02-17-[address] JONATHAN EDWARDS Facility:[facility] Start: 02-09-2022 End: 02-10-[address] RICARDO HOLM . Facility:[facility] Start: 11-16-2021 End: 11-17-[address] JONATHAN EDWARDS Facility:[facility] Start: 11-01-2021 End: 11-02-2021 ambulatory CRYS Giordano Facility:[facility]1 Start: 08-30-2021 End: 08-31-[address] [facility] Start: 08-30-2021 End: 08-30-2021 Subsequent hospital visit by physician Sr Edwards DO Work Phone: [facility] Comment on above: Routine cervical sme ar Start: 08-16-2021 Encounter for genera l adult medical examination without abnormal findings DR RICARDO HOLM . [facility] Start: 08-09-2021 End: 08-10-2021 Encounter for general [...] Date Procedure Procedure Detail Performing Clinician Start: 05-28-2024 Plain radiography of pelvis Start: 05-28-2024 X-ray of right knee, four views Start: 05-21-2024 Radiologic examinati on knee 3 views Ameena Vera [employer]TER HEL[employer] Work Phone: Start: 05-21-2024 ALL CBC WITH AUTO DIFF Ameena Chuy [employer]TER HEL[employer] Work Phone: Start: 05-19-2024 Hemoglobin glycosyla anne a1c Ameena Vera [employer] HEL[employer] Work Phone: Start: 03-30-2024 Hemoglobin glycosyla anne a1c Sonam Drake [employer]TER HEL[employer] Work Phone: Start: 03-18-2024 MM TOMOSYNTHESIS SCR EENING BI Generic External Data Provider Start: 03-18-2024 Mammography Generic Pr ovider Start: 12-31-2023 ALL CBC WITH AUTO DIFF Sonam Drake FITTER HELPER Work Phone: Start: 03-20-2023 Mammography Shaikh Marie calero MD Work Phone: Start: 08-30-2021 Microscopic observat ion [Identifier] in Cervix by Cyto stain Sr House DO Work Phone: Plan of Treatment Date Care Activity Detail Author Start: 03-28-2026 Screening for malign ant neoplasm of colon [facility] Start: 03-08-2026 Screening for malign ant neoplasm of colon [facility] Start: 05-21-2025 Urine screening for protein Diabetes: Urine Protein Screening [facility] Start: 03-30-2025 End: 03-30-2025 Patient encounter procedure 03/30/2025 11:15 AM EST Office Visit [facility] [address] [place] [address] Alicia Monroy MD [address] [place], [place] [phone] [facility] Start: 03-18-2025 Screening for malign ant neoplasm of breast Mammogram [facility] Start: 12-30-2024 Urine screening for protein Diabetes: Urine Protein Screening [facility] Start: 11-18-2024 Hemoglobin A1c measurement Diabetes: Hemoglobin A1C [facility] Start: 10-26-2024 End: 10-26-2024 Patient encounter procedure 10/26/2024 1:20 PM EDT Office Visit [facility] [address] [place] [address] Za Wilkerson NP [address] [place], [place] [facility] [place] Start: 10-12-2024 Influenza vaccination Influenz a Vaccine (Season Ended) [facility] Start: 09-27-2024 Hemoglobin A1c measurement Diabetes: Hemoglobin A1C [facility] Start: 08-30-2024 Screening for malign ant neoplasm of cervix [facility] Start: 08-20-2024 End: 08-20-2024 Patient encounter procedure 08/20/2024 10:30 AM EDT Office Visit [facility] [address] [place] [address] Ameena Vera NP [address] [place] [address] [facility] Start: 07-26-2024 Urine screening for protein Diabetes: Urine Protein Screening [facility] Start: 07-03-2024 End: 06-03-2025 25-hydroxyvitamin D3 [Mass/volume] in Serum or Plasma Vitamin D 25 hydroxy Lab Routine Hypercalcemia Expected: 07/03/2024 (Approximate), Expires: 06/03/2025 [facility] Comment on above: Expected: 07/03/2024 (Approximate), Expires: 06/03/2025 Start: 07-03-2024 End: 06-03-2025 Basic metabolic 1998 panel - Serum or Plasma Basic metabolic panel Lab Routine Hypercalcemia Low serum parathyroid hormone (PTH) Expected: 07/03/2024 (Approximate), Expires: 06/03/2025 [facility] Comment on above: Expected: 07/03/2024 (Approximate), Expires: 06/03/2025 Start: 07-03-2024 End: 06-03-2025 Parathyrin.intact [Mass/volume] in Serum or Plasma PTH, intact Lab Routine Low serum parathyroid hormone (PTH) Expected: 07/03/2024 (Approximate), Expires: 06/03/2025 [facility] Work Phone: Comment on above: Expected: 07/03/2024 (Approximate), Expires: 06/03/2025 Start: 06-25-2024 End: 06-25-2024 [facility] Start: 05-22-2024 End: 05-22-2025 Parathyrin.intact [Mass/volume] in Serum or Plasma PTH, intact Lab Routine Hypercalcemia Expected: 05/22/2024 (Approximate), Expires: 05/22/2025 [facility] Work Phone: Comment on above: Expected: 05/22/2024 (Approximate), Expires: 05/22/2025 Start: 05-19-2024 End: 05-19-2025 25-hydroxyvitamin D3 [Mass/volume] in Serum or Plasma Vitamin D 25 hydroxy Lab Routine Hypercalcemia Expected: 05/19/2024 (Approximate), Expires: 05/19/2025 [facility] Comment on above: Expected: 05/19/2024 (Approximate), Expires: 05/19/2025 Start: 05-19-2024 End: 05-19-2025 CBC W Auto Differential panel - Blood CBC and differential Lab Routine JANETT (obstructive sleep apnea) Cigarette nicotine dependence without complication Expected: 05/19/2024 (Approximate), Expires: 05/19/2025 [facility] Comment on above: Expected: 05/19/2024 (Approximate), Expires: 05/19/2025 Start: 05-19-2024 End: 05-19-2025 Comprehensive metabolic 2000 panel - Serum or Plasma Comprehensive metabolic panel Lab Routine Other hyperlipidemia Bilateral lower extremity edema Type 2 diabetes mellitus with diabetic microalbuminuria, without long-term current use of insulin ([facility]) Hypercalcemia Essential hypertension Expected: 05/19/2024 (Approximate), Expires: 05/19/2025 [facility] Comment on above: Expected: 05/19/2024 (Approximate), Expires: 05/19/2025 Start: 05-19-2024 End: 05-19-2025 Lipid 1996 panel - Serum or Plasma Lipid panel Lab Routine Other hyperlipidemia Expected: 05/19/2024 (Approximate), Expires: 05/19/2025 [facility] Work Phone: Comment on above: Expected: 05/19/2024 (Approximate), Expires: 05/19/2025 Start: 05-19-2024 End: 05-19-2025 Microalbumin/Creatinine panel in random Urine Microalbumin / creatinine, urine ratio Lab Routine Type 2 diabetes mellitus with diabetic microalbuminuria, without long-term current use of insulin ([facility]) Essential hypertension Expected: 05/19/2024 (Approximate), Expires: 05/19/2025 [facility] Comment on above: Expected: 05/19/2024 (Approximate), Expires: 05/19/2025 Start: 05-19-2024 End: 05-19-2025 Parathyrin.intact [Mass/volume] in Serum or Plasma PTH, intact Lab Routine Hypercalcemia Expected: 05/19/2024 (Approximate), Expires: 05/19/2025 [facility] Comment on above: Expected: 05/19/2024 (Approximate), Expires: 05/19/2025 Start: 05-19-2024 End: 05-19-2025 Urate [Mass/volume] in Serum or Plasma Uric acid Lab Routine Elevated blood uric acid level Expected: 05/19/2024 (Approximate), Expires: 05/19/2025 [facility] Comment on above: Expected: 05/19/2024 (Approximate), Expires: 05/19/2025 Start: 05-19-2024 End: 05-19-2025 Urinalysis complete panel - Urine Urinalysis with reflex microscopic (clean catch) Lab Routine Type 2 diabetes mellitus with diabetic microalbuminuria, without long-term current use of insulin ([facility]) Cigarette nicotine dependence without complication Essential hypertension Elevated blood uric acid level Expected: 05/19/2024 (Approximate), Expires: 05/19/2025 [facility] Comment on above: Expected: 05/19/2024 (Approximate), Expires: 05/19/2025 Start: 05-19-2024 End: 05-19-2025 XR Knee - right 3 Views XR knee 3 views right Imaging Routine Acute pain of right knee Expected: 05/19/2024 (Approximate), Expires: 05/19/2025 [facility] Comment on above: Expected: 05/19/2024 (Approximate), Expires: 05/19/2025 Start: 05-19-2024 End: 05-19-2024 Patient encounter procedure 05/19/2024 11:00 AM EDT Office Visit [facility] [address] [place] [phone] Ameena Vera NP [address] [place] [address] [facility] Start: 04-21-2024 End: 04-21-2024 Patient encounter procedure 04/21/2024 1:00 PM EDT Office Visit [facility] [place] [address] [place] [phone] Za Wilkerson NP [address] [place] [address] [facility] Start: 03-30-2024 End: 03-30-2024 Patient encounter procedure 03/30/2024 11:05 AM EST Office Visit [facility] [address] [place] [phone] Alicia Monroy MD [address] [place] [address] [facility] Start: 03-26-2024 End: 03-26-2024 Patient encounter procedure 03/26/2024 2:00 PM EST Office Visit [facility] [address] [place] [phone] Sonam [place], FITTER HELPER [address] [place] [place] [address] [facility] Start: 03-24-2024 End: 03-24-2024 Patient encounter procedure [facility] [address] Start: 03-20-2024 Screening for malign ant [facility]oplasm [facility] Start: 02-27-2024 End: 02-27-2024 Patient encounter procedure 02/27/2024 11:35 AM EST Office Visit [facility] [address] [place] [phone] Alicia Monroy MD [address] [place] [address] [facility] Start: 02-25-2024 End: 02-25-2024 Patient encounter procedure 02/25/2024 3:30 PM EST Office Visit [facility] [address] [place] [address] Sonam Drake, FITTER HELPER [address] [place] [phone] [facility] Start: 02-21-2024 Medicare Annual Well ness (AWV) Medicare Annual Wellness (AWV) [facility] Start: 02-12-2024 Glaucoma screening Diabetes: R etinopathy Screening [facility] Start: 01-25-2024 Hemoglobin A1c measurement Diabetes: Hemoglobin A1C [facility] Start: 12-31-2023 End: 12-30-2024 Polysomnography [facility] Routine JANETT (obstructive sleep apnea) Expected: 12/31/2023 (Approximate), Expires: 12/30/2024 [facility] Work Phone: Comment on above: Expected: 12/31/2023 (Approximate), Expires: 12/30/2024 Start: 12-31-2023 End: 12-31-2023 Patient encounter procedure 12/31/2023 10:00 AM EST Office Visit [facility] [place] [address] [place] [phone] Sivan Villegas, [address] [place] [address] [facility] [address] Start: 12-30-2023 End: 12-29-2024 CBC W Auto Differential panel - Blood CBC and differential Lab Routine Type 2 diabetes mellitus with diabetic microalbuminuria, without long-term current use of insulin ([facility]) Essential hypertension Expected: 12/30/2023 (Approximate), Expires: 12/29/2024 [facility] Comment on above: Expected: 12/30/2023 (Approximate), Expires: 12/29/2024 Start: 12-30-2023 End: 12-29-2024 Comprehensive metabolic 2000 panel - Serum or Plasma Comprehensive metabolic panel Lab Routine Type 2 diabetes mellitus with diabetic microalbuminuria, without long-term current use of insulin ([facility]) Essential hypertension Expected: 12/30/2023 (Approximate), Expires: 12/29/2024 [facility] Comment on above: Expected: 12/30/2023 (Approximate), Expires: 12/29/2024 Start: 12-30-2023 End: 12-29-2024 Hemoglobin A1c/Hemoglobin.total in Blood Hemoglobin A1c Lab Routine Type 2 diabetes mellitus with diabetic microalbuminuria, without long-term current use of insulin ([facility]) Expected: 12/30/2023 (Approximate), Expires: 12/29/2024 [facility] Comment on above: Expected: 12/30/2023 (Approximate), Expires: 12/29/2024 Start: 12-30-2023 End: 12-30-2023 Patient encounter procedure 12/30/2023 10:30 AM EST Office Visit [facility] [address] [place] [phone] Sonam Drake NP [address] [place] [address] [facility] Start: 11-04-2023 End: 11-04-2023 Patient encounter procedure 11/04/2023 2:30 PM EDT Office Visit [facility] [address] [place] [phone] Sivan Villegas, [address] [place], [place] [phone] [facility] [address] Start: 10-13-2023 Influenza vaccination Influenza Vacc ine (#1) [facility] Start: 08-11-2023 Influenza vaccination Influenza Vacc ine (#1) [facility] Comment on above: Postponed from 10/12 (Patient Refused) Start: 05-02-2023 End: 05-02-2023 Patient encounter procedure 05/02/2023 2:00 PM EDT Office Visit [facility] [address] [place] [phone] Shaikh Connelly MD [address] [place] [phone] [facility] Start: 02-17-2023 Hemoglobin A1c measurement Diabetes: Hemoglobin A1C [facility] Start: 09-04-2022 End: 09-04-2022 Patient encounter procedure 09/04/2022 Office Visit Obstetrics and Gynecology Radha Barclay, ELECTRIC SIGN ASSEMBLER - CNM [address] [facility] [address] [place] [phone] [facility] OBSTETRICS & GYNECOLOGY [facility] Start: 10-12-2021 Influenza vaccination Flu vaccine (# 1) [facility] Start: 10-21-2013 Screening for malign ant neoplasm of breast Breast cancer screen [facility] Start: 10-21-2013 Shingles vaccine (1 of 2) [place] gles vaccine (1 of 2) [facility] Start: 10-21-2008 Screening for malign ant neoplasm of colon [facility] Start: 2003 Lipid panel Lipids [facility] Start: 10-21-1998 Diabetes screen Diabetes screen [facility] Start: 10-21-1993 Screening for malign ant neoplasm of cervix [facility] Start: 10-21-1982 DTaP/Tdap/Td vaccine (1 - Tdap) DTaP/Tdap/Td vaccine (1 - Tdap) [facility] Start: 10-21-1982 Urine screening for protein Diabetes: Urine Protein Screening [facility] Start: 10-21-1981 Hepatitis C screening Hepatitis C sc reen [facility] Start: 10-21-1978 HIV screening HIV screen [facility] Start: 1975 Depression Screen Depression Screen [facility] Start: 04-20-1964 COVID-19 Vaccine (#1) COVID-19 Vacci ne (#1) [facility] Start: 1963 Screening for malign ant neoplasm of colon [facility] End: 08-30-2021 Cytopathology procedure, preparation of smear, genital source PAP SMEAR Lab Routine Routine cervical smear 1 Occurrences starting 08/30/2021 until 08/30/2021 [facility] Work Phone: Comment on above: 1 Occurrences starti ng 08/30/2021 until 08/30/2021 Microalbumin/Creatin ine panel in random Urine Microalbumin / creatinine urine ratio Lab Routine Type 2 diabetes mellitus with diabetic microalbuminuria, without long-term current use of insulin (CMS/HCC) Essential hypertension Ordered: 12/30/2023 [facility] Work Phone: Comment on above: Ordered: 12/30/2023 Immunizations Immunization Date Immunization Notes Care Provider Tima [email or web address] 01-14-2017 influenza, injectabl e, quadrivalent, preservative [facility] 01-14-2017 influenza virus vaccine, unspecified formulation Sonam Drake [employer]TER HEL[employer] Work Phone: [facility] Payers Date Payer Category Payer Self-pay [id number] 2022 Private Health Insurance [id number] 2022 Unknown [id number] 2012 Medicare [id number]. [id number] 1963 Unknown [id number] 2.16.8 40.1.491622.3.579.2.173 1963 Unknown [id number] 2.16.84 0.1.894250.3.579.2.593 1963 Unknown [id number] 2.16.84 0.1.314478.3.579.2.593 1963 Unknown [id number] 2.16.84 0.1.456693.3.579.2.593 1963 Unknown [id number] 2.16.84 0.1.631658.3.579.2.593 1963 Unknown [id number] 2.16.84 0.1.629054.3.579.2.593 1963 Unknown [id number] 2.16.84 0.1.660138.3.579.2.593 1963 Unknown [id number] 2.16.84 0.1.306010.3.579.2.593 1963 Unknown [id number] 2.16.84 0.1.919757.3.579.2.593 1963 Unknown [id number] 2.16.84 0.1.812369.3.579.2.593 1963 Unknown [id number] 2.16.84 0.1.672196.3.579.2.593 1963 Unknown [id number] 2.16.84 0.1.904749.3.579.2.593 1963 Unknown [id number] 2.16.84 0.1.065060.3.579.2.593 1963 Unknown [id number] 2.16.84 0.1.138897.3.579.2.593 1963 Unknown [id number] 2.16.84 0.1.423017.3.579.2.593 1963 Unknown [id number] 2.16.84 0.1.256190.3.579.2.593 1963 Unknown [id number] 2.16.84 0.1.949100.3.579.2.593 1963 Unknown [id number] 2.16.84 0.1.141624.3.579.2.1259 1963 Unknown [id number] 2.16.84 0.1.349336.3.579.2.1259 1963 Unknown [id number] 2.16.84 0.1.682803.3.579.2.1259 1963 Unknown [id number] 2.16.84 0.1.527130.3.579.2.1259 1963 Unknown [id number] 2.16.84 0.1.737789.3.579.2.1259 1963 Unknown [id number] 2.16.84 0.1.847619.3.579.2.1259 1963 Unknown [id number] 2.16.84 0.1.569002.3.579.2.1259 1963 Unknown [id number] 2.16.84 0.1.139641.3.579.2.1259 1963 Unknown [id number] 2.16.84 0.1.648682.3.579.2.1259 1963 Unknown [id number] 2.16.84 0.1.019381.3.579.2.1259 1963 Unknown [id number] 2.16.84 0.1.630249.3.579.2.1259 1959 Medicare [id number] 1.2.840.754152.1.13.239.2.7.3.557499.315 1959 Unknown [id number] 1.2.840.686950.1.13.239.2.7.3.390422.315 1959 Unknown [id number] 2.16.8 40.1.128293.19 Medicare Medicare [id number] Unknown [id number] 2.16.8 40.1.962881.3.579.2.531 Social History Date Type Detail Facility Start: 08-30-2021 End: 04-21-2024 Tobacco smoking status COIS Smokes tobacco daily [employer] Phone: History of tobacco use Cigarette Smoker B ON [employer] Phone: Start: 08-30-2021 End: 04-21-2024 Tobacco use and exposure Smokeless tobacco non-user [employer] Phone: Start: 08-30-2021 Alcohol intake Current drinke r of alcohol (finding) [employer] Phone: Start: 08-30-2021 History SDOH Alcohol Comment occasional [employer] Phone: Start: 1965 Sex Assigned At Not on file B ON [facility] [employer] Work Phone: Start: 08-20-2021 End: 08-30-2021 Exposure to SARS-CoV-2 (event) Not sure [facility] Start: 02-25-2023 End: 10-02-2023 Sex Assigned At [facility] Start: 01-29-2023 End: 05-20-2024 Tobacco smoking status NHIS Ex-smoker [facility] History of tobacco use Current smoker [facility] Start: 01-29-2023 End: 10-02-2023 Cigarettes smoked current (pack per day) - Reported 0.5 [facility] Start: 02-25-2023 End: 05-19-2024 Alcohol intake Lifetime non-drinker (finding) [facility] Start: 1965 Sex Assigned At Female F [facility] History of tobacco use Passive smoker [...] - these days [OSQ] To some extent [facility] Start: 05-29-2024 Sex Female (finding) [facility] Medical Equipment Procedure Code Equipment Code Equipment Origin al Text Equipment Identifier Dates [id number] Start: 06-08-2021 End: 04-21-2024 Clinical Notes 06-20-2021 to 05-28-2024 Note Date & Type Note Facility 05-28-2024 Evaluation note Diagnosis Onset Date Resolution Primary osteoarthritis of right knee acute May 28, 2024 12:55pm [facility] Work Phone: [phone]) 665-128904-11-2025 History of Present illness Narrative* Ameena Vera NP - 05/22/2024 7:25 AM EDT par [id number] History of Present illness Narrative* Ameena Vera NP - 05/19/2024 12:58 PM EDTAssociated Problem(s): Acute pain of right knee Check xray Refer to ortho * Ameena Vera NP - 05/19/2024 11:44 AM EDTAssociated Problem(s): Chronic gout of multiple sites Allopurinol daily Colchicine prn Check labs yearly and prn sxs or dose change * REMY VALVERDE - 05/19/2024 11:00 AM EDT Right knee pain- pt states that pain happened about 4 weeks ago, she does not recall anything happening possibly extended. She wears a knee brace daily and takes of at bedtime. Pt did at first take tylenol rub on the knee- does help somewhat. Pt states she does ice it at times, pt does elevate it through out the day and at night. No busing. Some swelling. Pt states she has a difficult time walking. Had an orthopedic surgeon in the past back in [place] for that knee however she does not remember who. Fast sugars average 113 * Ameena Vera NP - 05/19/2024 11:00 AM EDT Images from the original note were not included. Karina De Oliveira is a 58 y.o. female presents with chief complaint of Knee Pain HPI: Right knee pain- pt states that pain happened about 4 weeks ago, she does not recall anything happening possibly extended. She wears a knee brace daily and takes of at bedtime. Pt did at first take tylenol rub on the knee- does help somewhat. Pt states she does ice it at times, pt does elevate it through out the day and at night. No busing. Some swelling. Pt states she has a difficult time walking. Had an orthopedic surgeon in the past back in [place] for that knee however she does not remember who. Fast sugars average 113 CGM: 7 day:133, GMI 6.5%, 94% in range, 6 % high 14 day: 134, GMI 6.5%, 91% range, 8% high, 30 day: 127, GMI 6.3%, 93% RANGE, 6% HIGH]\ 90 day: 131, GMI 6.4%, 93% range, 6% high, Knee Pain There was no injury mechanism. The pain is present in the right knee. The quality of the pain is described as aching. The pain is moderate. The pain has been Fluctuating since onset. The symptoms areaggravated by weight bearing. She has tried acetaminophen, ice and NSAIDs (brace) for the symptoms. Diabetes She has type 2 diabetes mellitus. Her disease course has been stable. Pertinent negatives for hypoglycemia include no dizziness, headaches, nervousness/anxiousness, seizures or tremors. Associated symptoms include polydipsia. Pertinent negatives for diabetes include no chest pain, no polyphagia, nopolyuria and no weakness. There are no hypoglycemic complications. There are no diabetic complications. Risk factors for coronary artery disease include diabetes mellitus, dyslipidemia and obesity. Current diabetic treatment includes oral agent (monotherapy) (GLP 1). An MAUREEN inhibitor/angiotensin II receptor dev is not being taken. Eye exam is not current. SUBJECTIVE: MEDICATIONS: Current Outpatient Medications Medication Instructions alendronate (FOSAMAX) 70 mg, Oral, Every 7 days, Take in the morning with a full glass of water, vero empty stomach, and do not take anything else by mouth or lie down for the next 30 min. allopurinol (ZYLOPRIM) 300 mg, Daily baclofen (LIORESAL) 20 mg, Oral, 3 times daily PRN colchicine 0.6 MG tablet TAKE 2 TABLETS BY MOUTH AT ONSET OF ACUTE GOUT, MAY TAKE 1 TABLET IN 1 HOURS. NO MORE THAN 3 TABLETS DAILY Continuous Glucose Network Project Manager (Dexcom G7 Network Project Manager) device 1 each, Does not apply, Continuous Continuous Glucose Sensor (Dexcom G7 Sensor) misc 1 each, Does not apply, Continuous diclofenac (VOLTAREN) 75 mg, Oral, 2 times daily, Do not crush, chew, or split. divalproex (DEPAKOTE) 500 mg, Oral, 2 times daily, Do not crush, chew, or split. famotidine (PEPCID) 20 mg, Oral, 2 times daily fluticasone (Flonase) 50 MCG/ACT nasal spray 1-2 sprays, Each Nostril, Daily, Shake gently. Before first use, prime pump. After use, clean tip and replace cap. furosemide (LASIX) 20 mg, Oral, As needed, Take 20 mg by mouth if needed metFORMIN (GLUCOPHAGE) 500 mg, Oral, 2 times daily with meals pregabalin (LYRICA) 75 mg, Oral, 3 times daily rizatriptan (MAXALT) 10 mg, Oral, Once as needed, May repeat in 2 hours if unresolved. Do not exceed 30 mg in 24 hours. rosuvastatin (CRESTOR) 20 mg, Oral, Daily semaglutide (OZEMPIC) 2 mg, Subcutaneous, Weekly ALLERGIES: No Known Allergies REVIEW OF SYMPTOMS: Review of Systems Constitutional: Negative for appetite change, chills and fever. HENT: Negative for congestion, ear pain and sore throat. Eyes: Negative for pain, discharge, redness and visual disturbance. Respiratory: Negative for cough, shortness of breath and wheezing. Cardiovascular: Negative for chest pain, palpitations and leg swelling. Gastrointestinal: Negative for abdominal pain, blood in stool, constipation, diarrhea, nausea and vomiting. Genitourinary: Negative for difficulty urinating, dysuria and frequency. Musculoskeletal: Positive for arthralgias. Negative for back pain, joint swelling and myalgias. Skin: Negative for rash and wound. Neurological: Negative for dizziness, tremors, seizures, syncope, weakness and headaches. Psychiatric/Behavioral: Negative for behavioral problems, self-injury and suicidal ideas. The patient is not nervous/anxious. Hematological: Does not bruise/bleed easily. Endocrine: Positive for polydipsia. Negative for polyphagia and polyuria. Allergic/Immunologic: Negative for environmental allergies and food allergies. PAST MEDICAL HISTORY Past Medical History: Diagnosis Date Acute gout of wrist Basal cell carcinoma Bilateral leg edema Chronic low back pain Cyst, ovary, follicular Diabetes mellitus (CMS/HCC) Hallux valgus, right Headache, tension-type Hyperlipidemia (CMS/HCC) Hypertension (CMS/HCC) Labial skin tag Metatarsus adductus of right foot Migraine headache (CMS/HCC) Osteoporosis (CMS/HCC) Restless leg syndrome Right foot pain Sleep apnea 12/2023 Type 2 diabetes mellitus, without long-term current use of insulin (CMS/HCC) Past Surgical History: Procedure Laterality Date BACK SURGERY HYSTERECTOMY LUMBAR LAMINECTOMY 1992 family history includes Arthritis in her mother; Cancer in her maternal grandfather and mother; Diabetes in her maternal grandfather and mother; Heart disease in her maternal grandfather and mother; Hyperlipidemia in her mother; Hypertension in her maternal grandfather and mother; Restless legs syndrome in her mother. OBJECTIVE: Visit Vitals BP 116/80 (BP Location: Right arm, Patient Position: Sitting, BP Cuff Size: Adult long) Pulse 91 Temp 98.3 F (Temporal) Resp 18 Ht 5' 2 Wt 213 lb 6.4 oz SpO2 96% BMI 39.03 kg/m Smoking Status Every Day BSA 2.06 m Physical Exam Vitals and nursing note reviewed. Constitutional: General: She is not in acute distress. Appearance: Normal appearance. She is obese. HENT: Head: Normocephalic and atraumatic. Right Ear: External ear normal. Left Ear: External ear normal. Nose: Nose normal. Mouth/Throat: Mouth: Mucous membranes are moist. Eyes: Extraocular Movements: Extraocular movements intact. Conjunctiva/sclera: Conjunctivae normal. Neck: Vascular: No carotid bruit. Cardiovascular: Rate and Rhythm: Normal rate and regular rhythm. Pulses: Normal pulses. Heart sounds: Normal heart sounds. Pulmonary: Effort: Pulmonary effort is normal. Breath sounds: Normal breath sounds. No wheezing or rhonchi. Abdominal: General: Bowel sounds are normal. There is no distension. Palpations: Abdomen is soft. There is no mass. Tenderness: There is no abdominal tenderness. Musculoskeletal: Cervical back: Normal range of motion and neck supple. Right lower leg: No edema. Left lower leg: No edema. Comments: Knee brace to right knee: pain w flexion/extension Calf soft Lymphadenopathy: Cervical: No cervical adenopathy. Skin: General: Skin is warm and dry. Capillary Refill: Capillary refill takes 2 to 3 seconds. Findings: No rash. Neurological: General: No focal deficit present. Mental Status: She is alert and oriented to person, place, and time. Psychiatric: Mood and Affect: Mood normal. Behavior: Behavior normal. Thought Content: Thought content normal. Judgment: Judgment normal. ASSESSMENT AND PLAN: No follow-ups on file. Problem List Items Addressed This Visit Type 2 diabetes mellitus with diabetic microalbuminuria, without long-term current use of insulin ([facility]) Check blood sugars daily, notify if <70 or >200. Take medications (pills or insulin) as directed. Monitor for s/s of hypoglycemia (sweaty, dizziness, nausea, vomiting, or shakiness). Watch for increase in thirst, urination, or appetite. Inspect feet frequently monitoring for open wounds , andalso recommend yearly eye exam. Pt should attempt to remain as physically active as chronic conditions allow, as well as trying to follow a diet low in carbohydrates, and simple sugars. Current meds: metformin, ozempic, statin A1c: 6.7% Relevant Medications Semaglutide, 2 MG/DOSE, (Ozempic, 2 MG/DOSE,) 8 MG/3ML solution pen-injector Other Relevant Orders Urinalysis with reflex microscopic (clean catch) Microalbumin / creatinine, urine ratio POCT glycosylated hemoglobin (Hb A1C) docked device (Completed) Comprehensive metabolic panel Migraine with aura and without status migrainosus, not intractable ([facility]) Current meds: maxalt, depakote Other hyperlipidemia On statin therapy Check labs yearly and prn dose changes Relevant Orders Lipid panel Comprehensive metabolic panel Essential hypertension (Chronic) No current meds DASH diet Limit caffeine Contact office if chest pain, pressure, dizziness, shortness of breath, swelling legs Relevant Orders Urinalysis with reflex microscopic (clean catch) Microalbumin / creatinine, urine ratio Comprehensive metabolic panel Morbid (severe) obesity due to excess calories (E66.01) Discussed with patient their BMI (actual, verses recommended). We have also discussed lifestyle modifications: attempts to perform physical activity as chronic conditions allow, also to monitor dietary intake: increasing protein/fruits/veggies and lowering carb intake (unless contraindicated). Limit sodas, juices, and sugary drinks. Is taking ozempic for DM Bilateral lower extremity edema Current meds: lasix prn Elevate legs when able, limit sodium, compression stockings if tolerated Relevant Orders Comprehensive metabolic panel Lumbar back pain Relevant Medications diclofenac (Voltaren) 75 MG EC tablet JANETT (obstructive sleep apnea) - Primary You have a diagnosis of obstructive sleep apnea. It is recommended that you wear your PAP device any time while in bed sleeping. Not using the PAP device can increase your risk of elevated/uncontrolled high blood pressure, atrial fibrillation, heart attack, stroke, or sudden . Compliance with PAP:yes How many hours of use per night: 5-7 hours Do you feel more refreshed in the morning: yes Company that supplies your machine and tubing/filters etc: [employer] Doctor that manages your JANETT: Dr Villegas Relevant Orders CBC and differential Body mass index (BMI) 39.0-39.9, adult Cigarette nicotine dependence without complication The patient has been advised of the risks of continued smoking: stroke, ME, all forms of cancer, lung disease, and . Options for quitting smoking include: cold turkey, hypnosis, acupuncture, nicotine replacement meds(gum, lozenges, and patches), Buproprion, and Varenicline. At this time pt is encouraged to evaluate their goals for wanting to quit smoking, and reach out toprovider when ready to start this process Relevant Orders Urinalysis with reflex microscopic (clean catch) CBC and differential Hypercalcemia Relevant Orders Comprehensive metabolic panel Vitamin D 25 hydroxy PTH, intact Elevated blood uric acid level Currently taking allopurinol Relevant Orders Urinalysis with reflex microscopic (clean catch) Uric acid Chronic gout of multiple sites Allopurinol daily Colchicine prn Check labs yearly and prn sxs or dose change Relevant Medications allopurinol (Zyloprim) 300 MG tablet Acute pain of right knee Check xray Refer to ortho Relevant Orders XR knee 3 views right Ambulatory referral to Orthopaedic Surgery Other Visit Diagnoses Gastroesophageal reflux disease without esophagitis Relevant Medications famotidine (Pepcid) 20 MG tablet * Ameena Vera NP - 05/19/2024 6:58 AM EDTAssociated Problem(s): Elevated blood uric acid level Currently taking allopurinol * Ameena Vera NP - 05/19/2024 6:53 AM EDTAssociated Problem(s): Cigarette nicotine dependence without complication The patient has been advised of the risks of continued smoking: stroke, ME, all forms of cancer, lung disease, and . Options for quitting smoking include: cold turkey, hypnosis, acupuncture, nicotine replacement meds(gum, lozenges, and patches), Buproprion, and Varenicline. At this time pt is encouraged to evaluate their goals for wanting to quit smoking, and reach out toprovider when ready to start this process * Ameena Vera NP - 05/19/2024 6:52 AM EDTAssociated Problem(s): Other hyperlipidemia On statin therapy Check labs yearly and prn dose changes * Ameena Vera NP - 05/19/2024 6:51 AM EDTAssociated Problem(s): Migraine with aura and without status migrainosus, not intractable ([facility]) Current meds: maxalt, depakote * Ameena Vera NP - 05/19/2024 6:51 AM EDTAssociated Problem(s): Type 2 diabetes mellitus with diabetic microalbuminuria, without long-term current use of insulin ([facility]) Check blood sugars daily, notify if <70 or >200. Take medications (pills or insulin) as directed. Monitor for s/s of hypoglycemia (sweaty, dizziness, nausea, vomiting, or shakiness). Watch for increase in thirst, urination, or appetite. Inspect feet frequently monitoring for open wounds , andalso recommend yearly eye exam. Pt should attempt to remain as physically active as chronic conditions allow, as well as trying to follow a diet low in carbohydrates, and simple sugars. Current meds: metformin, ozempic, statin A1c: 6.7% * Ameena Vera NP - 05/19/2024 6:50 AM EDTAssociated Problem(s): Morbid (severe) obesity due to excess calories (E66.01) Discussed with patient their BMI (actual, verses recommended). We have also discussed lifestyle modifications: attempts to perform physical activity as chronic conditions allow, also to monitor dietary intake: increasing protein/fruits/veggies and lowering carb intake (unless contraindicated). Limit sodas, juices, and sugary drinks. Is taking ozempic for DM * Ameena Vera NP - 05/19/2024 6:49 AM EDTAssociated Problem(s): Bilateral lower extremity edema Current meds: lasix prn Elevate legs when able, limit sodium, compression stockings if tolerated * Ameena Vera NP - 05/19/2024 6:49 AM EDTAssociated Problem(s): Essential hypertension No current meds DASH diet Limit caffeine Contact office if chest pain, pressure, dizziness, shortness of breath, swelling legs * Ameena Vera NP - 05/19/2024 6:48 AM EDTAssociated Problem(s): JANETT (obstructive sleep apnea) You have a diagnosis of obstructive sleep apnea. It is recommended that you wear your PAP device any time while in bed sleeping. Not using the PAP device can increase your risk of elevated/uncontrolled high blood pressure, atrial fibrillation, heart attack, stroke, or sudden . Compliance with PAP:yes How many hours of use per night: 5-7 hours Do you feel more refreshed in the morning: yes Company that supplies your machine and tubing/filters etc: [facility] Doctor that manages your JANETT: Dr Villegas documented in this [facility]04-08-2025 Instructions* Patient Instructions* Ameena Vera NP - 05/19/2024 11:00 AM EDT Fasting labs Get xray knee Referral to Dr Darren Orona documented in this [facility]02-17-2025 Telephone encounter Note* Telephone Encounter - Jolly Castaneda MA - 03/30/2024 11:44 AM EST Pt's sensor fell off, and she needs them refilled please [facility] [id number] Miscellaneous Notes* Telephone Encounter - Jolly Castaneda MA - 03/30/2024 11:44 AM EST Pt's sensor fell off, and she needs them refilled please documented in this [facility]02-17-2025 History of Present illness Narrative* Alicia Monroy MD - 03/30/2024 11:05 AM EST Skin Check Location: Patient requests a full body skin examination Dermatologic history: history of Actinic Keratosis, history of Basal Cell Carcinoma Last visit: 1 year ago Established patient Follow up Diagnosis: Hidradenitis Location: abdomen (clear) Last visit: 1 year ago Symptoms: clear Status: stable Current treatment: Hibiclens 4% 2-3 times a week and clindamycin lotion 1% every day as needed, hadto get over the counter as insurance would not cover All pertinent medical history, medications, and allergies were reviewed. General Exam: alert, oriented to person, place, and time, normal affect, well appearing Unaccompanied Scalp, Examined , exam limited by hair Right leg Examined Head, Face Examined , Patient declined to remove makeup Left leg Examined Neck Examined Right foot Examined Chest Examined Left foot Examined Back Examined Buttocks Examined Abdomen Examined Digits,nails: Examined Right arm Examined Patient wearing nail amharic, Denies dark streaks under finger nails, Denies darkstreaks on toenails Left arm Examined Lymphatics: Not examined Hands Examined 1. Lentigines Scattered krueger macules in sun-exposed areas. The patient was informed that lentigines are benign pigmented lesions that occur on sun-exposed andsun-damaged skin. No treatment is necessary. Recommended regular use of broad spectrum sunscreen SPF 30 or higher 2. Melanocytic nevus of trunk Scattered benign appearing, regular brown to light brown melanocytic papules and macules with similar morphology Counseled regarding these benign growths. Rarely, a nevus can develop into malignant melanoma, so any changing nevi should be promptly re-evaluated. 3. 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 Notify office if area is changing/bleeding/growing 4. Hidradenitis suppurativa Abdomen (Lower Torso, Anterior) Scarring, no active lesions today. Stable The patient was counseled that hidradenitis is a chronic inflammatory disorder of the hair follicles and sweat glands. Continue with OTC products as patient's insurance does not cover prescribed treatment. Ok to call in hibiclens and clindamycin lotion if patient would like at a later date to see if it is covered if she has any changes in insurance. Notify office if worsening despite treatment. 5. History of basal cell carcinoma Right Nasal Sidewall No evidence of recurrence at BCC scar. The patient was counseled that scars from excisional sites of nonmelanoma skin cancers should be monitored closely for recurrence. The patient was instructed to contact the office for any new, changing, or symptomatic moles. The patient was also instructed to contact the office for any new lesions that develop within or around the previous surgery scar. Next Visit: 1 year skin check documented in this encounterCox [id number] History of Present illness Narrative* Sonam Drake NP - 03/30/2024 10:04 AM ESTAssociated Problem(s): JANETT (obstructive sleep apnea) Saw Neurology- was diagnosed with severe JANETT. Has been wearing CPAP religiously. Feels more well rested when wearing. Continue current regimen as directed by neurology. * Sonam Drake NP - 03/30/2024 9:58 AM ESTAssociated Problem(s): Other hyperlipidemia (CMS/HCC) Crestor 20mg Denies myalgias Continue current regimen. * Sonam Drake NP - 03/30/2024 9:58 AM ESTAssociated Problem(s): Essential hypertension BP consistently under goal in office. Not on any medication regimen. Continue to monitor closely. * Sonam Drake NP - 03/30/2024 9:58 AM ESTAssociated Problem(s): Type 2 diabetes mellitus with diabetic microalbuminuria, without long-term current use of insulin (CMS/HCC) Currently taking Metformin Bid and Ozempic 1mg. Would like to increase to 2mg. Will increase to 2mg today. Most recent labs: hemoglobin A1C 6.9% Average FSBS range from BGs range between 100 and 125 Checks BG levels using Continuous glucose monitor- Dexcom. Feels it has helped her manage her carbohydrate intake much more closely. No episode of hypoglycemia No medication adverse [...] monitoring noted. Last DM eye Exam; 01/2023; Was scheduled for 01/2024- missed appointment, but will be scheduling. * Sonam Drake NP - 03/30/2024 9:30 AM EST Images from the original note were not included. Subjective Patient ID: Karina De Oliveira is a 58 y.o. female who presents for Follow-up. HPI HTN: BP consistently under goal in office. Not on any medication regimen. Continue to monitor closely. HLD: Crestor 20mg Denies myalgias Continue current regimen. DMII: Currently taking Metformin Bid and Ozempic 1mg. Would like to increase to 2mg. Will increase to 2mg today. Most recent labs: hemoglobin A1C 6.9% Average FSBS range from BGs range between 100 and 125 Checks BG levels using Continuous glucose monitor- Dexcom. Feels it has helped her manage her carbohydrate intake much more closely. No episode of hypoglycemia No medication adverse [...] monitoring noted. Last DM eye Exam; 01/2023; Was scheduled for 01/2024- missed appointment, but will be scheduling. JANETT: Saw Neurology- was diagnosed with severe JANETT. Has been wearing CPAP religiously. Feels more well rested when wearing. Continue current regimen as directed by neurology. Review of Systems Constitutional: Negative for activity [...] in stool, constipation, diarrhea and vomiting. Genitourinary: Negative for decreased urine volume, dysuria, flank pain, frequency, hematuria and urgency. Musculoskeletal: Negative for arthralgias, gait problem, joint swelling and myalgias. Skin: Negative for rash. Neurological: Negative for dizziness, tremors, syncope, weakness, light- headedness and headaches. Psychiatric/Behavioral: Negative for decreased concentration and suicidal ideas. The patient is notnervous/anxious. Hematological: Does not bruise/bleed easily. Endocrine: Negative for cold intolerance, heat intolerance, polydipsia, polyphagia and polyuria. Objective Physical Exam Constitutional: Appearance: Normal appearance. HENT: Head: Normocephalic. Right Ear: External ear normal. Left Ear: External ear normal. Nose: Nose normal. Mouth/Throat: Mouth: Mucous [...] of motion. Skin: General: Skin is warm. Capillary Refill: Capillary refill takes less than 2 seconds. Neurological: Mental Status: She is alert and oriented to person, place, and time. Psychiatric: Mood and Affect: Mood normal. Behavior: Behavior normal. Assessment/Plan Problem List Items Addressed This Visit Type 2 diabetes mellitus with diabetic microalbuminuria, without long-term current use of insulin ([facility]) - Primary Currently taking Metformin Bid and Ozempic 1mg. Would like to increase to 2mg. Will increase to 2mg today. Most recent labs: hemoglobin A1C 6.9% Average FSBS range from BGs range between 100 and 125 Checks BG levels using Continuous glucose monitor- Dexcom. Feels it has helped her manage her carbohydrate intake much more closely. No episode of hypoglycemia No medication adverse [...] monitoring noted. Last DM eye Exam; 01/2023; Was scheduled for 01/2024- missed appointment, but will be scheduling. Relevant Medications semaglutide (Ozempic) 2 MG/1.5ML solution pen-injector Other Relevant Orders POCT glycosylated hemoglobin (Hb A1C) docked device (Completed) Other hyperlipidemia ([facility]) Crestor 20mg Denies myalgias Continue current regimen. Essential hypertension (Chronic) BP consistently under goal in office. Not on any medication regimen. Continue to monitor closely. JANETT (obstructive sleep apnea) Saw Neurology- was diagnosed with severe JANETT. Has been wearing CPAP religiously. Feels more well rested when wearing. Continue current regimen as directed by neurology. Other Visit Diagnoses Type 2 diabetes mellitus without complication, without long-term current use of insulin ([facility]) documented in this encounterCox [id number] Instructions* Patient Instructions* Sonam Drake NP - 03/30/2024 9:30 AM EST Education: Check blood sugars daily, notify if <70 or >200. Take medications (pills or insulin) as directed. Monitor for s/s of hypoglycemia (sweaty, dizziness, nausea, vomiting, or shakiness). Watch for increase in thirst, urination, or appetite. Inspect feet frequently monitoring for open wounds , andalso recommend yearly eye exam. Pt should attempt to remain as physically active as chronic conditions allow, as well as trying to follow a diet low in carbohydrates, and simple sugars. documented in this encounterCox [id number] History of Present illness Narrative* Sonam Drake NP - 03/03/2024 11:35 AM ESTAssociated Problem(s): Upper respiratory infection with cough and congestion Productive cough- yellow phlegm/Sinus congestion/Runny nose/Headaches/Malaise X1 week. Will treat for upper respiratory infection with steroids, Augmentin, Flonase, and tessalon Perles. Advised pt to follow up if symptoms worsen or do not improve within 1 week.. * Sonam Drake NP - 03/03/2024 10:00 AM EST Images from the original note were not [...] microalbuminuria, without long-term current use of insulin ([facility]) Relevant Medications metFORMIN (Glucophage) 500 MG tablet Continuous Glucose Network Project Manager (Dexcom G7 Network Project Manager) device Continuous Glucose Sensor (Dexcom G7 Sensor) [...] aura and without status migrainosus, not intractable ([facility]) Relevant Medications divalproex (Depakote) 500 MG EC tablet Other hyperlipidemia ([facility]) Relevant Medications rosuvastatin (Crestor) 20 MG tablet Lumbar back pain Relevant Medications diclofenac (Voltaren) 75 MG EC tablet Other Visit Diagnoses Diabetic polyneuropathy associated with type 2 diabetes mellitus ([facility]) Relevant Medications pregabalin (Lyrica) 75 MG capsule documented in this encounterCox [id number] Instructions* Patient Instructions* Sonam Drake NP - 03/03/2024 10:00 AM [...] 1500 calories per day. documented in this [facility]12-19-2024 Telephone encounter Note* Telephone Encounter - Jolly Castaneda MA - 01/30/2024 10:38 AM EST GIOVANNA:12/30/2023 NOV:03/26/2024 [id number] Miscellaneous Notes* Telephone Encounter - Jolly Castaneda MA - 01/30/2024 10:38 AM EST GIOVANNA:12/30/2023 NOV:03/26/2024 documented in this [facility]12-03-2024 Telephone encounter Note* Telephone Encounter - Jolly Castaneda MA - 01/14/2024 8:34 AM EST GIOVANNA:12/30/2023 NOV:03/26/2023 [id number] Miscellaneous Notes* Telephone Encounter - Jolly Castaneda MA - 01/14/2024 8:34 AM EST GIOVANNA:12/30/2023 NOV:03/26/2023 documented in this encounterCox [id number] History of Present illness Narrative* Sivan Solo, - 12/31/2023 10:00 AM EST Images from the original note were not included. No chief complaint on file. Subjective SLEEP CONSULT REFERRAL: Snoring, concern for JANETT, needing sleep study - labs @ [facility]; referral received from Sonam Drake CNP. 58 year old female being seen in Neurology consultation for sleep. She does not sleep well at nightand then is sleepy during the day. He [...] was counseled on the risks of stroke, ME, and sudden with JANETT, along with the [...] to clinic: 2 months documented in this encounterCox [id number] History of Present illness Narrative* Sonam Drake NP - 12/30/2023 1:19 PM ESTAssociated Problem(s): Mixed urge and stress incontinence Referral sent to Urology for urinary dysfunction. Pt has not gone to see them yet. * Sonam Drake NP - 12/30/2023 1:18 PM ESTAssociated Problem(s): Snoring Referral sent to Neurology for suspected first JANETT. First appointment tomorrow. * Sonam Drake NP - 12/30/2023 1:18 PM ESTAssociated Problem(s): Other hyperlipidemia (CMS/HCC) Crestor 20mg Denies myalgias Continue current regimen. * Sonam Drake NP - 12/30/2023 1:17 PM ESTAssociated Problem(s): Type 2 diabetes mellitus with diabetic [...] eye Exam; 01/2023; Is going in 01/2024 * Sonam Drake NP - 12/30/2023 10:30 AM EST Images from the original note were not [...] ALBUMIN GLOBULIN RATIO 0.8 Resulting Agency H [facility] DMII: Metformin Bid and Ozempic Most [...] Neurological: Negative for dizziness, tremors, syncope, weakness, light- headedness and headaches. Psychiatric/Behavioral: Negative for decreased concentration and suicidal ideas. The patient is notnervous/anxious. Hematological: Does not bruise/bleed easily. Endocrine: Negative [...] microalbuminuria, without long-term current use of insulin ([facility]/HCC) - Primary Currently taking Metformin Bid and [...] JANETT. First appointment tomorrow. documented in this encounterCox [id number] Instructions* Patient Instructions* Sonam Drake NP - 12/30/2023 10:30 AM EST FASTING labs ordered. Nothing to eat or drink for 12 hours prior to blood draw. Water and black coffee ok. Call if you need anything! documented in this encounterCox [id number] Telephone encounter Note* Telephone Encounter - Jolly Castaneda MA - 12/17/2023 3:39 PM EST GIOVANNA:10/03/2023 NOV:12/30/2023 [facility] [id number] Miscellaneous Notes* Telephone Encounter - Jolly Castaneda MA - 12/17/2023 3:39 PM EST GIOVANNA:10/03/2023 NOV:12/30/2023 documented in this encounterCox [id number] History of Present illness Narrative* Sonam Drake NP - 10/03/2023 10:57 AM EDTAssociated Problem(s): Snoring Screening for JANETT- Referral sent to [facility] * Sonam Drake NP - 10/03/2023 10:35 AM EDTAssociated Problem(s): Morbid (severe) obesity due to excess [...] well as surgical options for weight loss. * Sonam Drake NP - 10/03/2023 10:34 AM EDTAssociated Problem(s): Other hyperlipidemia (CMS/HCC) Crestor 20mg; Lipid panel looks good Denies myalgias; Continue Crsetor * Sonam Drake NP - 10/03/2023 10:34 AM EDTAssociated Problem(s): Type 2 diabetes mellitus with diabetic [...] normal Sharp/dull discrimination normal Filament test present * Sonam Drake NP - 10/03/2023 10:33 AM EDTAssociated Problem(s): Lumbar back pain Emerita. Percocet PRN * Sonam Drake NP - 10/03/2023 10:31 AM EDTAssociated Problem(s): Mixed urge and stress incontinence Referral sent to urology. * Sonam Drake NP - 10/03/2023 10:00 AM EDT Images from the original note were not [...] ALBUMIN GLOBULIN RATIO 0.8 Resulting Agency H [facility] DMII: Metformin Bid and Ozempic Most [...] Neurological: Negative for dizziness, tremors, syncope, weakness, light- headedness and headaches. Psychiatric/Behavioral: Negative for decreased concentration and suicidal ideas. The patient is notnervous/anxious. Hematological: Does not bruise/bleed easily. Endocrine: Negative [...] microalbuminuria, without long-term current use of insulin ([facility]) Metformin Bid and Ozempic Most recent labs: [...] (Lyrica) 75 MG capsule documented in this encounterCox [id number] Instructions* Patient Instructions* Sonam Drake NP - 10/03/2023 10:00 AM EDT Referral sent to Urology Dr. Villafuerte- they will call you. Education: Check blood sugars daily, notify if <70 or >200. Take medications (pills or insulin) as directed. Monitor for s/s of hypoglycemia (sweaty, dizziness, nausea, vomiting, or shakiness). Watch for increase in thirst, urination, or appetite. Inspect feet frequently monitoring for open wounds , andalso recommend yearly eye exam. Pt should attempt to remain as physically active as chronic conditions allow, as well as trying to follow a diet low in carbohydrates, and simple sugars. Diet: Eat three meals per day. Breakfast, lunch, and dinner. Avoid snacking. Avoid eating after 5/6pm. Daily protein GOAL 35% of your intake; [...] if you need anything! 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 The patient tolerated this well without complication. We discussed that the finger may feel numb and tingle for hours after this injection. Mar, Right wrist pain (ICD-10 - M25.531) Mar, Left hand pain (ICD- 10 - M79.642) [employer] Other 12-13-2023 Evaluation note* Encounter Date Diagnosis [...] noted. Patient will f/u in 4 weeks. [employer] Other 12-08-2023 Evaluation note* Encounter Date Diagnosis [...] x-ray that was performed at [facility] which revealed degenerative changes in the hand as well as a remote avulsion fracture of the thumb. Patient states her family doctor is treating her for gout in her hand. Jan, History of gout (ICD-10 - Z87.39) Jan, Other Gout material w as printed [employer] Other 08-09-2023 Evaluation note* Encounter Date Diagnosis Assessment Notes Treatment Notes Treatment Clinical Notes Sep, Right wrist pain (ICD-10 - M25.531) [employer] Other 04-27-2023 NoteCONSULTATION CONSULTATION DATE: 06/07/2022 TO: [...] our patients to inform us about any mnyc-vsc-xzupyfy medications or herbal remedies/nutritional supplements/alternative remedies. 2. [...] with their primary care provider.[id number] Evaluation note * Encounter Date Diagnosis Assessment [...] understanding and is agreeable to treatment plan. [employer] Other 01-26-2023 NoteCONSULTATION PROCEDURE DATE: 03/08/2022 PREOPERATIVE [...] followed up in the clinic.[facility] [id number] NotePROCEDURE: XR KNEE LT 4V or > [...] for further evaluation. Electronically authenticated by: PATTIE CORTES Date: 2022-02-16 11:29[facility] [id number] NoteCONSULTATION CONSULTATION DATE: 02/09/2022 HISTORY OF PRESENT [...] Patient agrees with this plan.[facility] [id number] NotePROCEDURE: XR WRIST RT MIN 3 V COMPARISON: None. HISTORY: Injury of right wrist FINDINGS: BONES:No acute fracture or dislocation. Corticated bone fragment identified along the first carpometacarpal joint [degenerative in nature SOFT TISSUES:Moderate diffuse soft tissue swelling EFFUSION:None visible. OTHER: Negative. IMPRESSION: Soft tissue swelling, no acute fracture Electronically authenticated by: RYAN GOLDMAN Date: 2021-11-16 18:59[facility] [id number] NoteCONSULTATION CONSULTATION DATE: 11/01/2021 HISTORY OF PRESENT [...] Patient agrees with this plan.[facility] [id number] NoteCONSULTATION PROCEDURE DATE: 11/01/2021 PRE AND POSTOPERATIVE [...] followed up in the clinic.[facility] [id number] NoteCONSULTATION PROCEDURE DATE: 08/09/2021 PREOPERATIVE DIAGNOSIS: Bilateral [...] will be followed up in the clinic. [facility] Signed and Approved by: CRYS PIERCE . 08/10/2021 13:37:00[facility] [id number] NoteCONSULTATION CONSULTATION DATE: 07/19/2021 HISTORY OF PRESENT [...] injections. Patient acknowledges and all questions answered. [facility] Signed and Approved by: CRYS PIERCE . 07/20/2021 10:33:00[facility] [id number] NotePROCEDURE: XR FOOT RT MIN 3 VIEWS [...] to patient's symptoms. Electronically authenticated by: PATTIE CORTES Date: 2021-07-05 11:11[facility]05-10-2022 NoteCONSULTATION CONSULTATION DATE: 06/20/2021 CHIEF COMPLAINT: [...] like to proceed. CC: Jonathan Edwards M.D. [facility] Signed and Approved by: DR RICARDO HOLM . 06/27/2021 10:40:00[facility]* Diagnosis Routine cervical smear Screening for malignant neoplasm of the cervix documented in this encounter [facility] Work Phone: evaluation note* Diagnosis Diabetic polyneuropathy associated with type 2 diabetes mellitus (CMS/HCC)- Primary documented in this encounter [facility] HealthcareEvaluation noteNo assessment information availableSelect Medical [facility] Work Phone: Evaluation note* Diagnosis Encounter for [...] diabetes mellitus (CMS/HCC) documented in this encounter [facility] HealthcareEvaluation note* Diagnosis Encounter for [...] chronicity, unspecified site documented in this encounter [facility] HealthcareEvaluation note* Diagnosis Encounter for [...] Tobacco use disorder documented in this encounter [facility]* [...] complication, without long-term current use of insulin ([facility]/HCC) Diabetic polyneuropathy associated with type 2 diabetes mellitus (CMS/HCC) Mixed urge and stress incontinence Mixed incontinence urge and stress (male)(female) Snoring Other dyspnea and respiratory abnormality Encounter for long-term (current) use of high-risk medication Encounter for long-term (current) use of other medications Type 2 diabetes mellitus with diabetic microalbuminuria, without long-term current use of insulin ([facility]/HCC)- Primary Essential hypertension Unspecified essential hypertension Other hyperlipidemia (CMS/HCC) Snoring Other dyspnea and respiratory abnormality Mixed urge and stress incontinence Mixed incontinence urge and stress (male)(female) documented in this encounter [facility] HealthcareEvaluation note* Diagnosis Encounter for [...] complication, without long-term current use of insulin ([facility]) Back spasm Other symptoms referable to back Closed fracture of proximal end of left fibula with routine healing, unspecified fracture morphology, subsequent encounter Closed nondisplaced fracture of second metatarsal bone of left foot with routine healing, subsequent encounter Other hyperlipidemia ([facility]) Hyperuricemia Other abnormal blood chemistry Osteoporosis, unspecified osteoporosis type, unspecified pathological fracture presence ([facility]) Diabetic polyneuropathy associated with type 2 diabetes mellitus ([facility]) Gastroesophageal reflux disease without esophagitis Esophageal reflux Migraine with aura and without status migrainosus, not intractable ([facility]) Hospital discharge follow-up Other follow-up examination Type 2 diabetes mellitus with diabetic microalbuminuria, without long-term current use of insulin ([facility])- Primary Other hyperlipidemia ([facility]) Essential hypertension Unspecified essential hypertension Bilateral lower extremity edema Lumbar back pain- Primary Lumbago Hospital discharge follow-up Other follow-up examination Essential hypertension- Primary Unspecified essential hypertension Type 2 diabetes mellitus with diabetic microalbuminuria, without long-term current use of insulin ([facility]) Morbid (severe) obesity due to excess calories (E66.01) Other hyperlipidemia ([facility]) Lumbar back pain Lumbago Type 2 diabetes mellitus without complication, without long-term current use of insulin ([facility]) Diabetic polyneuropathy associated with type 2 diabetes mellitus ([facility]) Mixed urge and stress incontinence Mixed incontinence urge and stress (male)(female) Snoring Other dyspnea and respiratory abnormality Encounter for long-term (current) use of high-risk medication Encounter for long-term (current) use of other medications Type 2 diabetes mellitus with diabetic microalbuminuria, without long-term current use of insulin ([facility])- Primary Essential hypertension Unspecified essential hypertension Other hyperlipidemia ([facility]) Snoring Other dyspnea and respiratory abnormality Mixed urge and stress incontinence Mixed incontinence urge and stress (male)(female) Lumbar back pain Lumbago documented in this encounter [facility] HealthcareEvaluation note* Diagnosis Essential hypertension- Primary Unspecified essential hypertension Type 2 diabetes mellitus with diabetic microalbuminuria, without long-term current use of insulin ([facility]) Morbid (severe) obesity due to [...] of insulin (CMS/HCC) documented in this encounter [facility] HealthcareEvaluation note* Diagnosis Encounter for [...] Other hyperlipidemia (CMS/HCC) documented in this encounter [facility] HealthcareEvaluation note* Diagnosis Encounter for screening [...] with routine healing, subsequent encounter Other hyperlipidemia ([facility]) Hyperuricemia Other abnormal blood chemistry Osteoporosis, unspecified osteoporosis type, unspecified pathological fracture presence ([facility]) Diabetic polyneuropathy associated with type 2 diabetes mellitus ([facility]) Gastroesophageal reflux disease without esophagitis Esophageal reflux Migraine with aura and without status migrainosus, not intractable ([facility]) Hospital discharge follow-up Other follow-up examination Type 2 diabetes mellitus with diabetic microalbuminuria, without long-term current use of insulin ([facility])- Primary Other hyperlipidemia (CMS/HCC) Essential hypertension Unspecified essential hypertension Bilateral lower extremity edema Lumbar back pain- Primary Lumbago Hospital discharge follow-up Other follow-up examination Essential hypertension- Primary Unspecified essential hypertension Type 2 diabetes mellitus with diabetic microalbuminuria, without long-term current use of insulin ([facility]) Morbid (severe) obesity due to excess calories (E66.01) Other hyperlipidemia (CMS/HCC) Lumbar back pain Lumbago Type 2 diabetes mellitus without complication, without long-term current use of insulin ([facility]) Diabetic polyneuropathy associated with type 2 diabetes mellitus ([facility]) Mixed urge and stress incontinence Mixed incontinence urge and stress (male)(female) Snoring Other dyspnea and respiratory abnormality Encounter for long-term (current) use of high-risk medication Encounter for long-term (current) use of other medications Type 2 diabetes mellitus with diabetic microalbuminuria, without long-term current use of insulin ([facility])- Primary Essential hypertension Unspecified essential [...] fracture presence (CMS/HCC) documented in this encounter [facility] HealthcareEvaluation note* Diagnosis Encounter for [...] microalbuminuria, without long-term current use of insulin ([facility]) Diabetic polyneuropathy associated with type 2 diabetes mellitus (CMS/[facility]) Other hyperlipidemia ([facility]) Gastroesophageal reflux disease without esophagitis Esophageal reflux documented in this encounter [facility] HealthcareEvaluation note* Diagnosis Encounter for screening mammogram for breast cancer- Primary Encounter for screening for malignant neoplasm of colon Type 2 diabetes mellitus without complication, without long-term current use of insulin ([facility]) Upper respiratory tract infection, unspecified type URTI (acute upper respiratory infection) Acute upper respiratory infections of unspecified site Migraine with aura and without status migrainosus, not intractable (CMS/HCC)- Primary Type 2 diabetes mellitus without complication, without long-term current use of insulin ([facility]/HCC) Morbid (severe) obesity due to excess calories [...] with routine healing, subsequent encounter Other hyperlipidemia (CMS/[facility]) Hyperuricemia Other abnormal blood chemistry [...] 2 diabetes mellitus (CMS/HCC) Other hyperlipidemia (CMS/HCC) Type 2 diabetes mellitus with diabetic microalbuminuria, without long-term current use of insulin (CMS/HCC)- Primary Essential hypertension Unspecified essential hypertension Other hyperlipidemia (CMS/HCC) JANETT (obstructive sleep apnea) Obstructive sleep apnea (adult) (pediatric) Type 2 diabetes mellitus without complication, without long-term current use of insulin (CMS/HCC) documented in this encounter [facility] HealthcareEvaluation note* Diagnosis Encounter for [...] with routine healing, subsequent encounter Other hyperlipidemia (CMS/[facility]) Hyperuricemia Other abnormal blood chemistry Osteoporosis, unspecified osteoporosis type, unspecified pathological fracture presence (CMS/[facility]) Diabetic polyneuropathy associated with type 2 diabetes mellitus (CMS/HCC) Gastroesophageal reflux disease without esophagitis Esophageal reflux Migraine with aura and without status migrainosus, not intractable (CMS/[facility]) Hospital discharge follow-up Other follow-up [...] complication, without long-term current use of insulin ([facility]) Diabetic polyneuropathy associated with type 2 diabetes mellitus ([facility]/HCC) Mixed urge and stress incontinence Mixed incontinence [...] 2 diabetes mellitus (CMS/HCC) Other hyperlipidemia (CMS/HCC) Hidradenitis suppurativa- Primary Hidradenitis Lentigines Melanocytic nevus of trunk Benign neoplasm of skin of trunk, except scrotum Congenital non-neoplastic nevus History of basal cell carcinoma Personal history of other malignant neoplasm of skin Type 2 diabetes mellitus with diabetic microalbuminuria, without long-term current use of insulin (CMS/HCC)- Primary Essential hypertension Unspecified essential hypertension Other hyperlipidemia (CMS/HCC) JANETT (obstructive sleep apnea) Obstructive sleep apnea (adult) (pediatric) Type 2 diabetes mellitus without complication, without long-term current use of insulin (CMS/HCC) documented in this encounter [facility] HealthcareEvaluation note* Diagnosis Encounter for [...] microalbuminuria, without long-term current use of insulin ([facility])- Primary Essential hypertension Unspecified essential hypertension Other hyperlipidemia (CMS/HCC) Snoring Other dyspnea and respiratory abnormality Mixed urge and stress incontinence Mixed incontinence urge and stress (male)(female) Upper respiratory infection with cough and congestion- Primary Lumbar back pain Lumbago Migraine with aura and without status migrainosus, not intractable (CMS/[facility]) Type 2 diabetes mellitus with diabetic microalbuminuria, without long-term current use of insulin (CMS/HCC) Diabetic polyneuropathy associated with type 2 diabetes mellitus (CMS/HCC) Other hyperlipidemia (CMS/HCC) Type 2 diabetes mellitus with diabetic microalbuminuria, without long-term current use of insulin ([facility]/HCC)- Primary Essential hypertension Unspecified essential hypertension Other hyperlipidemia (CMS/HCC) JANETT (obstructive sleep apnea) Obstructive sleep apnea (adult) (pediatric) Type 2 diabetes mellitus without complication, without long-term current use of insulin (CMS/HCC) Type 2 diabetes mellitus with diabetic microalbuminuria, without long-term current use of insulin (CMS/HCC) documented in this encounter [facility] HealthcareEvaluation note* Diagnosis Encounter for [...] 2 diabetes mellitus (CMS/HCC) Other hyperlipidemia (CMS/HCC) Type 2 diabetes mellitus with diabetic microalbuminuria, without long-term current use of insulin (CMS/HCC)- Primary Essential hypertension Unspecified essential hypertension Other hyperlipidemia (CMS/HCC) JANETT (obstructive sleep apnea) Obstructive sleep apnea (adult) (pediatric) Type 2 diabetes mellitus without complication, without long-term current use of insulin ([facility]) Bilateral lower extremity edema- Primary documented in this encounter [facility] HealthcareEvaluation note* Diagnosis Encounter for screening mammogram for breast cancer- Primary Encounter for screening for malignant neoplasm of colon Type 2 diabetes mellitus without complication, without long-term current use of insulin Upper respiratory tract infection, unspecified type URTI (acute upper respiratory infection) Acute upper respiratory infections of unspecified site Migraine with aura and without status migrainosus, not intractable (CMS/HCC)- Primary Type 2 diabetes mellitus without complication, without long-term current use of insulin Morbid (severe) obesity due to excess calories (E66.01) Body mass index [BMI] 40.0-44.9, adult (Z68.41) Essential hypertension Unspecified essential hypertension Essential hypertension- Primary Unspecified essential hypertension Type 2 diabetes mellitus without complication, without long-term current use of insulin Back spasm Other symptoms referable to back Closed fracture of proximal end of left fibula with routine healing, unspecified fracture morphology, subsequent encounter Closed nondisplaced fracture of second metatarsal bone of left foot with routine healing, subsequent encounter Other hyperlipidemia Hyperuricemia Other abnormal blood chemistry Osteoporosis, unspecified osteoporosis type, unspecified pathological fracture presence (CMS/HCC) Diabetic polyneuropathy associated with type 2 diabetes mellitus (CMS/HCC) Gastroesophageal reflux disease without esophagitis Esophageal reflux Migraine with aura and without status migrainosus, not intractable (CMS/HCC) Hospital discharge follow-up Other follow-up examination Type 2 diabetes mellitus with diabetic microalbuminuria, without long-term current use of insulin (CMS/HCC)- Primary Other hyperlipidemia Essential hypertension Unspecified essential hypertension Bilateral lower extremity edema Lumbar back pain- Primary Lumbago Hospital discharge follow-up Other follow-up examination Essential hypertension- Primary Unspecified essential hypertension Type 2 diabetes mellitus with diabetic microalbuminuria, without long-term current use of insulin (CMS/HCC) Morbid (severe) obesity due to excess calories (E66.01) Other hyperlipidemia Lumbar back pain Lumbago Type 2 diabetes mellitus without complication, without long-term current use of insulin Diabetic polyneuropathy associated with type 2 diabetes mellitus (CMS/HCC) Mixed urge and stress incontinence Mixed incontinence urge and stress (male)(female) Snoring Other dyspnea and respiratory abnormality Encounter for long-term (current) use of high-risk medication Encounter for long-term (current) use of other medications Type 2 diabetes mellitus with diabetic microalbuminuria, without long-term current use of insulin (CMS/[facility])- Primary Essential hypertension Unspecified essential hypertension Other hyperlipidemia Snoring Other dyspnea and respiratory abnormality Mixed urge and stress incontinence Mixed incontinence urge and stress (male)(female) Type 2 diabetes mellitus with diabetic microalbuminuria, without long-term current use of insulin (CMS/HCC)- Primary Essential hypertension Unspecified essential hypertension Other hyperlipidemia JANETT (obstructive sleep apnea) Obstructive sleep apnea (adult) (pediatric) Type 2 diabetes mellitus without complication, without long-term current use of insulin Type 2 diabetes mellitus with diabetic microalbuminuria, without long-term current use of insulin (CMS/HCC)- Primary Morbid (severe) obesity due to excess calories (CMS/HCC) Other hyperlipidemia Body mass index (BMI) 39.0-39.9, adult JANETT (obstructive sleep apnea) Obstructive sleep apnea (adult) (pediatric) Bilateral lower extremity edema Migraine with aura and without status migrainosus, not intractable (CMS/HCC) Cigarette nicotine dependence without complication Hypercalcemia Essential hypertension Unspecified essential hypertension Elevated blood uric acid level Lumbar back pain Lumbago Gastroesophageal reflux disease without esophagitis Esophageal reflux Chronic gout of multiple sites, unspecified cause Acute pain of right knee Diabetic polyneuropathy associated with type 2 diabetes mellitus (CMS/HCC) documented in this encounter [facility] HealthcareEvaluation note* Diagnosis Encounter for screening mammogram for breast cancer- Primary Encounter for screening for malignant neoplasm of colon Type 2 diabetes mellitus without complication, without long-term current use of insulin Upper respiratory tract infection, unspecified type URTI (acute upper respiratory infection) Acute upper respiratory infections of unspecified site Migraine with aura and without status migrainosus, not intractable (CMS/HCC)- Primary Type 2 diabetes mellitus without complication, without long-term current use of insulin Morbid (severe) obesity due to excess calories (E66.01) Body mass index [BMI] 40.0-44.9, adult (Z68.41) Essential hypertension Unspecified essential hypertension Essential hypertension- Primary Unspecified essential hypertension Type 2 diabetes mellitus without complication, without long-term current use of insulin Back spasm Other symptoms referable to back Closed fracture of proximal end of left fibula with routine healing, unspecified fracture morphology, subsequent encounter Closed nondisplaced fracture of second metatarsal bone of left foot with routine healing, subsequent encounter Other hyperlipidemia Hyperuricemia Other abnormal blood chemistry Osteoporosis, unspecified osteoporosis type, unspecified pathological fracture presence (CMS/HCC) Diabetic polyneuropathy associated with type 2 diabetes mellitus (CMS/HCC) Gastroesophageal reflux disease without esophagitis Esophageal reflux Migraine with aura and without status migrainosus, not intractable (CMS/HCC) Hospital discharge follow-up Other follow-up examination Type 2 diabetes mellitus with diabetic microalbuminuria, without long-term current use of insulin (CMS/HCC)- Primary Other hyperlipidemia Essential hypertension Unspecified essential hypertension Bilateral lower extremity edema Lumbar back pain- Primary Lumbago Hospital discharge follow-up Other follow-up examination Essential hypertension- Primary Unspecified essential hypertension Type 2 diabetes mellitus with diabetic microalbuminuria, without long-term current use of insulin (CMS/HCC) Morbid (severe) obesity due to excess calories (E66.01) Other hyperlipidemia Lumbar back pain Lumbago Type 2 diabetes mellitus without complication, without long-term current use of insulin Diabetic polyneuropathy associated with type 2 diabetes [...] Essential hypertension Unspecified essential hypertension Other hyperlipidemia Snoring Other dyspnea and respiratory abnormality Mixed urge and stress incontinence Mixed incontinence urge and stress (male)(female) Type 2 diabetes mellitus with diabetic microalbuminuria, without long-term current use of insulin (CMS/HCC)- Primary Essential hypertension Unspecified essential hypertension Other hyperlipidemia JANETT (obstructive sleep apnea) Obstructive sleep apnea (adult) (pediatric) Type 2 diabetes mellitus without complication, without long-term current use of insulin Type 2 diabetes mellitus with diabetic microalbuminuria, without long-term current use of insulin (CMS/HCC)- Primary Morbid (severe) obesity due to excess calories (CMS/HCC) Other hyperlipidemia Body mass index (BMI) 39.0-39.9, adult JANETT (obstructive sleep apnea) Obstructive sleep apnea (adult) (pediatric) Bilateral lower extremity edema Migraine with aura and without status migrainosus, not intractable (CMS/HCC) Cigarette nicotine dependence without complication Hypercalcemia Essential hypertension Unspecified essential hypertension Elevated blood uric acid level Lumbar back pain Lumbago Gastroesophageal reflux disease without esophagitis Esophageal reflux Chronic gout of multiple sites, unspecified cause Acute pain of right knee Diabetic polyneuropathy associated with type 2 diabetes mellitus (CMS/HCC) Hypercalcemia- Primary documented in this encounter [facility] HealthcareEvaluation note* Diagnosis Encounter for screening mammogram for breast cancer- Primary Encounter for screening for malignant neoplasm of colon Type 2 diabetes mellitus without complication, without long-term current use of insulin Upper respiratory tract infection, unspecified type URTI (acute upper respiratory infection) Acute upper respiratory infections of unspecified site Migraine with aura and without status migrainosus, not intractable (CMS/HCC)- Primary Type 2 diabetes mellitus without complication, without long-term current use of insulin Morbid (severe) obesity due to excess calories (E66.01) Body mass index [BMI] 40.0-44.9, adult (Z68.41) Essential hypertension Unspecified essential hypertension Essential hypertension- Primary Unspecified essential hypertension Type 2 diabetes mellitus without complication, without long-term current use of insulin Back spasm Other symptoms referable to back Closed fracture of proximal end of left fibula with routine healing, unspecified fracture morphology, subsequent encounter Closed nondisplaced fracture of second metatarsal bone of left foot with routine healing, subsequent encounter Other hyperlipidemia Hyperuricemia Other abnormal blood chemistry Osteoporosis, unspecified osteoporosis type, unspecified pathological fracture presence (CMS/HCC) Diabetic polyneuropathy associated with type 2 diabetes mellitus (CMS/[facility]) Gastroesophageal reflux disease without esophagitis Esophageal reflux Migraine with aura and without status migrainosus, not intractable ([facility]) Hospital discharge follow-up Other follow-up examination Type 2 diabetes mellitus with diabetic microalbuminuria, without long-term current use of insulin ([facility])- Primary Other hyperlipidemia Essential hypertension Unspecified essential hypertension Bilateral lower extremity edema Lumbar back pain- Primary Lumbago Hospital discharge follow-up Other follow-up examination Essential hypertension- Primary Unspecified essential hypertension Type 2 diabetes mellitus with diabetic microalbuminuria, without long-term current use of insulin ([facility]) Morbid (severe) obesity due to excess calories (E66.01) Other hyperlipidemia Lumbar back pain Lumbago Type 2 diabetes mellitus without complication, without long-term current use of insulin Diabetic polyneuropathy associated with type 2 diabetes mellitus ([facility]) Mixed urge and stress incontinence Mixed incontinence urge and stress (male)(female) Snoring Other dyspnea and respiratory abnormality Encounter for long-term (current) use of high-risk medication Encounter for long-term (current) use of other medications Type 2 diabetes mellitus with diabetic microalbuminuria, without long-term current use of insulin ([facility])- Primary Essential hypertension Unspecified essential hypertension Other hyperlipidemia Snoring Other dyspnea and respiratory abnormality Mixed urge and stress incontinence Mixed incontinence urge and stress (male)(female) Type 2 diabetes mellitus with diabetic microalbuminuria, without long-term current use of insulin ([facility])- Primary Essential hypertension Unspecified essential hypertension Other hyperlipidemia JANETT (obstructive sleep apnea) Obstructive sleep apnea (adult) (pediatric) Type 2 diabetes mellitus without complication, without long-term current use of insulin JANETT (obstructive sleep apnea)- Primary Obstructive sleep apnea (adult) (pediatric) Hypersomnia Hypersomnia, unspecified Snoring Other dyspnea and respiratory abnormality Primary insomnia Persistent disorder of initiating or maintaining sleep Tobacco abuse Tobacco use disorder Type 2 diabetes mellitus with diabetic microalbuminuria, without long-term current use of insulin ([facility])- Primary Morbid (severe) obesity due to excess calories ([facility]) Other hyperlipidemia Body mass index (BMI) 39.0-39.9, adult JANETT (obstructive sleep apnea) Obstructive sleep apnea (adult) (pediatric) Bilateral lower extremity edema Migraine with aura and without status migrainosus, not intractable ([facility]) Cigarette nicotine dependence without complication Hypercalcemia Essential hypertension Unspecified essential hypertension Elevated blood uric acid level Lumbar back pain Lumbago Gastroesophageal reflux disease without esophagitis Esophageal reflux Chronic gout of multiple sites, unspecified cause Acute pain of right knee Diabetic polyneuropathy associated with type 2 diabetes mellitus (CMS/HCC) documented in this encounter [facility] HealthcareEvaluation note* Diagnosis Encounter for screening mammogram for breast cancer- Primary Encounter for screening for malignant neoplasm of colon Type 2 diabetes mellitus without complication, without long-term current use of insulin Upper respiratory tract infection, unspecified type URTI (acute upper respiratory infection) Acute upper respiratory infections of unspecified site Migraine with aura and without status migrainosus, not intractable (CMS/HCC)- Primary Type 2 diabetes mellitus without complication, without long-term current use of insulin Morbid (severe) obesity due to excess calories (E66.01) Body mass index [BMI] 40.0-44.9, adult (Z68.41) Essential hypertension Unspecified essential hypertension Essential hypertension- Primary Unspecified essential hypertension Type 2 diabetes mellitus without complication, without long-term current use of insulin Back spasm Other symptoms referable to back Closed fracture of proximal end of left fibula with routine healing, unspecified fracture morphology, subsequent encounter Closed nondisplaced fracture of second metatarsal bone of left foot with routine healing, subsequent encounter Other hyperlipidemia Hyperuricemia Other abnormal blood chemistry Osteoporosis, unspecified osteoporosis type, unspecified pathological fracture presence (CMS/HCC) Diabetic polyneuropathy associated with type 2 diabetes mellitus (CMS/HCC) Gastroesophageal reflux disease without esophagitis Esophageal reflux Migraine with aura and without status migrainosus, not intractable (CMS/HCC) Hospital discharge follow-up Other follow-up examination Type 2 diabetes mellitus with diabetic microalbuminuria, without long-term current use of insulin (CMS/HCC)- Primary Other hyperlipidemia Essential hypertension Unspecified essential hypertension Bilateral lower extremity edema Lumbar back pain- Primary Lumbago Hospital discharge follow-up Other follow-up examination Essential hypertension- Primary Unspecified essential hypertension Type 2 diabetes mellitus with diabetic microalbuminuria, without long-term current use of insulin (CMS/HCC) Morbid (severe) obesity due to excess calories (E66.01) Other hyperlipidemia Lumbar back pain Lumbago Type 2 diabetes mellitus without complication, without long-term current use of insulin Diabetic polyneuropathy associated with type 2 diabetes [...] Essential hypertension Unspecified essential hypertension Other hyperlipidemia Snoring Other dyspnea and respiratory abnormality Mixed urge and stress incontinence Mixed incontinence urge and stress (male)(female) Type 2 diabetes mellitus with diabetic microalbuminuria, without long-term current use of insulin (CMS/HCC)- Primary Essential hypertension Unspecified essential hypertension Other hyperlipidemia JANETT (obstructive sleep apnea) Obstructive sleep apnea (adult) (pediatric) Type 2 diabetes mellitus without complication, without long-term current use of insulin Type 2 diabetes mellitus with diabetic microalbuminuria, without long-term current use of insulin (CMS/HCC)- Primary Morbid (severe) obesity due to excess calories (CMS/HCC) Other hyperlipidemia Body mass index (BMI) 39.0-39.9, adult JANETT (obstructive sleep apnea) Obstructive sleep apnea (adult) (pediatric) Bilateral lower extremity edema Migraine with aura and without status migrainosus, not intractable (CMS/HCC) Cigarette nicotine dependence without complication Hypercalcemia Essential hypertension Unspecified essential hypertension Elevated blood uric acid level Lumbar back pain Lumbago Gastroesophageal reflux disease without esophagitis Esophageal reflux Chronic gout of multiple sites, unspecified cause Acute pain of right knee Diabetic polyneuropathy associated with type 2 diabetes mellitus (CMS/HCC) Hypercalcemia- Primary Low serum parathyroid hormone (PTH) documented in this encounter [facility] HealthcareEvaluation note* Diagnosis Encounter for screening mammogram for breast cancer- Primary Encounter for screening for malignant neoplasm of colon Type 2 diabetes mellitus without complication, without long-term current use of insulin Upper respiratory tract infection, unspecified type URTI (acute upper respiratory infection) Acute upper respiratory infections of unspecified site Migraine with aura and without status migrainosus, not intractable (CMS/HCC)- Primary Type 2 diabetes mellitus without complication, without long-term current use of insulin Morbid (severe) obesity due to excess calories (E66.01) Body mass index [BMI] 40.0-44.9, adult (Z68.41) Essential hypertension Unspecified essential hypertension Essential hypertension- Primary Unspecified essential hypertension Type 2 diabetes mellitus without complication, without long-term current use of insulin Back spasm Other symptoms referable to back Closed fracture of proximal end of left fibula with routine healing, unspecified fracture morphology, subsequent encounter Closed nondisplaced fracture of second metatarsal bone of left foot with routine healing, subsequent encounter Other hyperlipidemia Hyperuricemia Other abnormal blood chemistry Osteoporosis, unspecified osteoporosis type, unspecified pathological fracture presence ([facility]) Diabetic polyneuropathy associated with type 2 diabetes mellitus ([facility]) Gastroesophageal reflux disease without esophagitis Esophageal reflux Migraine with aura and without status migrainosus, not intractable ([facility]) Hospital discharge follow-up Other follow-up examination Type 2 diabetes mellitus with diabetic microalbuminuria, without long-term current use of insulin ([facility])- Primary Other hyperlipidemia Essential hypertension Unspecified essential hypertension Bilateral lower extremity edema Lumbar back pain- Primary Lumbago Hospital discharge follow-up Other follow-up examination Essential hypertension- Primary Unspecified essential hypertension Type 2 diabetes mellitus with diabetic microalbuminuria, without long-term current use of insulin ([facility]) Morbid (severe) obesity due to excess calories (E66.01) Other hyperlipidemia Lumbar back pain Lumbago Type 2 diabetes mellitus without complication, without long-term current use of insulin Diabetic polyneuropathy associated with type 2 diabetes mellitus ([facility]) Mixed urge and stress incontinence Mixed incontinence urge and stress (male)(female) Snoring Other dyspnea and respiratory abnormality Encounter for long-term (current) use of high-risk medication Encounter for long-term (current) use of other medications Type 2 diabetes mellitus with diabetic microalbuminuria, without long-term current use of insulin ([facility])- Primary Essential hypertension Unspecified essential hypertension Other hyperlipidemia Snoring Other dyspnea and respiratory abnormality Mixed urge and stress incontinence Mixed incontinence urge and stress (male)(female) Type 2 diabetes mellitus with diabetic microalbuminuria, without long-term current use of insulin ([facility])- Primary Essential hypertension Unspecified essential hypertension Other hyperlipidemia JANETT (obstructive sleep apnea) Obstructive sleep apnea (adult) (pediatric) Type 2 diabetes mellitus without complication, without long-term current use of insulin Type 2 diabetes mellitus with diabetic microalbuminuria, without long-term current use of insulin ([facility])- Primary Morbid (severe) obesity due to excess calories ([facility]) Other hyperlipidemia Body mass index (BMI) 39.0-39.9, adult JANETT (obstructive sleep apnea) Obstructive sleep apnea (adult) (pediatric) Bilateral lower extremity edema Migraine with aura and without status migrainosus, not intractable ([facility]) Cigarette nicotine dependence without complication Hypercalcemia Essential hypertension Unspecified essential hypertension Elevated blood uric acid level Lumbar back pain Lumbago Gastroesophageal reflux disease without esophagitis Esophageal reflux Chronic gout of multiple sites, unspecified cause Acute pain of right knee Diabetic polyneuropathy associated with type 2 diabetes mellitus ([facility]/HCC) Acute non-recurrent sinusitis of other sinus- Primary documented in this encounter [facility] Narrative - Reported* Type Description Date Medical History GERD (gastroesophageal reflux di sease) Medical History Migraine headache Medical History Arthritis Medical History Edema of both legs Medical History Diabetes mellitus, type 2 Medical History Chronic back pain Surgical History ablasion Surgical History back surgery Surgical History hysterectomy Surgical History tubal ligation Hospitalization History see above [employer] Other Reason for referral (narrative)* Consultation (Routine) - Pending Review Specialty Diagnoses / Procedures Referred By Darren t Referred To Contact Neurology Diagnoses Snoring Procedures AL OFFICE/OUTPATIENT NEW HIGH MDM 60 MINUTES Sonam Drake NP [address] [place] [address] Sivan Villegas DO [address] [place] [address] Referral ID Status Reason Start Date Expiration Date Visits Requested Visits Authorized [id number] Pending Review Specialty Services Required 10/03/2023 03/31/2024 1 1 Scheduling Instructions Please include OV note from today * Consultation (Routine) - Pending Review Specialty Diagnoses / Procedures Referred By Darren t Referred To Contact Urology Diagnoses Mixed urge and stress incontinence Procedures AL OFFICE/OUTPATIENT NEW HIGH MDM 60 MINUTES Sonam Drake NP [address] [place] [address] Skinny Villafuerte MD [address] [place] [address] Referral ID Status Reason Start Date Expiration Date Visits Requested Visits Authorized [id number] Pending Review Specialty Services Required 10/03/2023 03/31/2024 1 1 [facility] Summary Purpose Family History Relationship Condition Age at Onset Recorded Date/T samreen Not Specified Heart disease Unknown Diabetes mellitus Unknown Relationship Condition Age at Onset Recorded Date/T samreen mother Heart disease Unknown Diabetes mellitus Unknown Advance Directives Advance Directive Response Recorded Date/ Time Advance Directives No January 12, 2017 9:25pm Chief Complaint and Reason for Visit Chief Complaint 4-6 WEEK RECHECK Chief Complaint Admit Date M25.561 - Pain in right knee May 28, 2024 8:36am CONSULT AMEENA VERA RT KNEE PAIN WX NO MS May 28, 2024 12:55pm Reason for Visit Admit Date Primary osteoarthritis of right knee Apr 2024 12:55pm Additional Source Comments Care Teams (unrecognized sec tion and content) Sign Builder Relationship Specialty Start Date End Date Sr Jonathan Edwarsd, DO [address] [place] [address] PCP - General Family Medicine 08/30/21 Sign Builder Relationship Specialty Start Date End Date Shaikh [...] April 30, 2023 End: April 30, 2023 Sign Builder Relationship Specialty Start Date End Date Jose Chandler MD [address] [place] [address] PCP - General Family Medicine 12/12/23 Sonam Drake NP [address] [place] [address] Nurse Practitioner Family Medicine 09/24/23 Sign Builder Relationship Specialty Start Date End Date Jose Chandler MD [address] [place] [address] PCP - General Family Medicine 12/12/23 Sonam Drake NP [address] [place] [address] Nurse Practitioner Family Medicine 09/24/23 Sign Builder Relationship Specialty Start Date End Date Jose Chandler MD [address] [place] [phone] PCP - General Family Medicine 12/12/23 Sonam Drake NP [address] [place] [address] Nurse Practitioner Family Medicine 09/24/23 Sign Builder Relationship Specialty Start Date End Date Jose Chandler MD [address] [place] [phone] PCP - General Family Medicine 12/12/23 Sonam Drake NP [address] [place] [address] Nurse Practitioner Family Medicine 09/24/23 Sign Builder Relationship Specialty Start Date End Date Jose Chandler MD [address] [place] [address] PCP - General Family Medicine 12/12/23 Sonam Drake NP [address] [place] [address] Nurse Practitioner Family Medicine 09/24/23 Sign Builder Relationship Specialty Start Date End Date Jose Chandler MD [address] [place] [id number] PCP - General Family Medicine 12/12/23 Sonam Drake NP [address] [place] [address] Nurse Practitioner Family Medicine 09/24/23 Sign Builder Relationship Specialty Start Date End Date Jose Chandler MD [address] [place] [phone] PCP - General Family Medicine 09/24/23 Sonam Drake NP [address] [place] [address] Nurse Practitioner Family Medicine 09/24/23 Sign Builder Relationship Specialty Start Date End Date Jose Chandler MD [address] [place] [address] PCP - General Family Medicine 09/24/23 Sonam rDake NP [address] [place] [address] Nurse Practitioner Family Medicine 09/24/23 Sign Builder Relationship Specialty Start Date End Date Jose Chandler MD [address] [place] [phone] PCP - General Family Medicine 09/24/23 Sonam Drake NP [address] [place] [address] Nurse Practitioner Family Medicine 09/24/23 Sign Builder Relationship Specialty Start Date End Date Jose Chandler MD [address] [place] [address] PCP - General Family Medicine 09/24/23 Sonam Drake NP [address] [place] [address] Nurse Practitioner Family Medicine 09/24/23 Sign Builder Relationship Specialty Start Date End Date Jose Chandler MD [address] [place] [address] PCP - General Family Medicine 12/12/23 Sonam Drake NP [address] [place] [address] Nurse Practitioner Family Medicine 09/24/23 Sign Builder Relationship Specialty Start Date End Date Jose Chandler MD [address] [place] [address] PCP - General Family Medicine 12/12/23 Sonam Drake NP [address] [place] [address] Nurse Practitioner Family Medicine 09/24/23 Sign Builder Relationship Specialty Start Date End Date Jose Chandler MD [address] [place] [phone] PCP - General Family Medicine 12/12/23 Sonam Drake NP [address] [place] [address] Nurse Practitioner Family Medicine 09/24/23 Sign Builder Relationship Specialty Start Date End Date Jose Chandler MD [address] [place] [address] PCP - General Family Medicine 12/12/23 Sonam Drake NP [address] [place] [address] Nurse Practitioner Family Medicine 09/24/23 Sign Builder Relationship Specialty Start Date End Date Jose Chandler MD [address] [place] [phone] PCP - General Family Medicine 12/12/23 Sonam Drake NP [address] [place] [address] Nurse Practitioner Family Medicine 09/24/23 Sign Builder Relationship Specialty Start Date End Date Jose Chandler MD [address] [place] [address] PCP - General Family Medicine 12/12/23 Sonam Drake NP [address] [place] [address] Nurse Practitioner Family Medicine 09/24/23 Sign Builder Relationship Specialty Start Date End Date Jose Chandler MD [address] [place] [address] PCP - General Family Medicine 12/12/23 Sonam Drake NP [address] [place] [address] Nurse Practitioner Family Medicine 09/24/23 Sign Builder Relationship Specialty Start Date End Date Jose Chandler MD [address] [place] [address] PCP - General Family Medicine 12/12/23 Sonam Drake NP [address] [place] [address] Nurse Practitioner Family Medicine 09/24/23 Sign Builder Relationship Specialty Start Date End Date Jose Chandler MD [address] [place] [phone] PCP - General Family Medicine 12/12/23 Sonam Drake NP [address] [place] [address] Nurse Practitioner Family Medicine 09/24/23 Sign Builder Relationship Specialty Start Date End Date Jose Chandler MD [address] [place] [address] PCP - General Family Medicine 12/12/23 Sonam Drake, RONALDO [address] [place] [address] Nurse Practitioner Family Medicine 09/24/23 Sign Builder Relationship Specialty Start Date End Date Jose Chandler MD [address] [place] [address] PCP - General Family Medicine 12/12/23 Sonam Drake NP Nurse Practitioner Family Medicine 09/24/23 Za Wilkerson NP [address] [place], [place] Nurse Practitioner Neurology 04/21/24 Sivan Villegas DO [address] [place] [address] Referring Physician Neurology 04/21/24 Sign Builder Relationship Specialty Start Date End Date Jose Chandler MD [address] [place] [phone] PCP - General Family Medicine 12/12/23 Sonam Drake NP Nurse Practitioner Family Medicine 09/24/23 Za Wilkerson NP [address] [place], [place] Nurse Practitioner Neurology 04/21/24 Sivan Villegas DO [address] [place] [address] Referring Physician Neurology 04/21/24 Sign Builder Relationship Specialty Start Date End Date Jose Chnadler MD [address] [place] [address] PCP - General Family Medicine 12/12/23 Sonam Drake NP Nurse Practitioner Family Medicine 09/24/23 Za Wilkerson NP [address] [place], [place] Nurse Practitioner Neurology 04/21/24 Sivan Villegas DO [address] [place] [address] Referring Physician Neurology 04/21/24 Sign Builder Relationship Specialty Start Date End Date Jose Chandler MD [address] [place] [address] PCP - General Family Medicine 12/12/23 Sonam Drake NP Nurse Practitioner Family Medicine 09/24/23 Za Wilkerson NP [address] [place], [place] Nurse Practitioner Neurology 04/21/24 Sivan Villegas DO [address] [place] [address] Referring Physician Neurology 04/21/24 Sign Builder Relationship Specialty Start Date End Date Jose Chandler MD [address] [place] [address] PCP - General Family Medicine 12/12/23 Sonam Drake NP Nurse Practitioner Family Medicine 09/24/23 Za Wilkerson NP [address] [place], [place] Nurse Practitioner Neurology 04/21/24 Sivan Villegas DO [address] [place], [place] [phone] Referring Physician Neurology 04/21/24 Sign Builder Relationship Specialty Start Date End Date Jose Chandler MD [address] [place] [address] PCP - General Family Medicine 12/12/23 Sonam Drake NP Nurse Practitioner Family Medicine 09/24/23 Za Wilkerson NP [address] [place], [place] Nurse Practitioner Neurology 04/21/24 Sivan Villegas DO [address] [place] [address] Referring Physician Neurology 04/21/24 Sign Builder Relationship Specialty Start Date End Date Jose Chandler MD [address] [place] [phone] PCP - General Family Medicine 12/12/23 Sonam Drake NP Nurse Practitioner Family Medicine 09/24/23 Za Wilkerson NP [address] [place], [place] Nurse Practitioner Neurology 04/21/24 Sivan Villegas DO [address] [place] [address] Referring Physician Neurology 04/21/24 Team Status: Active Member Role Status Dates Ameena Vera Primary Care Provider Active Team Status: Inactive Member Role Status Dates NON STAFF Primary Care Provider Active Start: May 28, 2024 End: May 28, 2024 Lui Banks II, MD Attending Provider Active Start: May 28, 2024 End: May 28, 2024 Team Status: Inactive Member Role Status Dates Lui Banks II, MD Attending Provider Active Start: May 28, 2024 End: May 28, 2024 Ameena Vera Primary Care Provider Active Sta rt: May 28, 2024 End: May 28, 2024 Sign Builder Relationship Specialty Start Date End Date Jose Chandler MD [address] [place] [address] PCP - General Family Medicine 12/12/23 Sonam Drake NP Nurse Practitioner Family Medicine 09/24/23 Za Wilkerson NP [address] [place], [place] Nurse Practitioner Neurology 04/21/24 Sivan Villegas DO [address] [place] [address] Referring Physician Neurology 04/21/24 INFORMATION SOURCE (unrecogn ized section and content) DATE CREATED AUTHOR 09/10/2021 [facility] DATE CREATED AUTHOR AUTHOR'S ORGANIZ ATION 06/08/2022 [facility] [place] [facility] DATE CREATED AUTHOR AUTHOR'S ORGANIZ ATION 10/06/2023 [facility] DATE CREATED AUTHOR AUTHOR'S ORGANIZ ATION 05/20/2024 [facility] EPIC DATE CREATED AUTHOR AUTHOR'S ORGANIZ ATION 06/01/2024 [facility] REASON FOR VISIT (unrecogniz ed section and [...] Reason Onset Date Comments Med Refill 03/09/2024 Reason Comments Follow-up Reason Comments Skin Check Reason Onset Date Comments Med Refill 03/30/2024 Reason Onset Date Comments Med Refill 05/06/2024 Reason Comments Knee Pain Reason Comments Sleep Apnea Goals (unrecognized section and content) Goals may [...] BE BASED ON THE PRIMARY CLINICAL RECORDS. [employer] [facility]. provides no warranty or guarantee of the accuracy or completeness of information in this document.
[2024-06-22 09:15] VITALS: BP 103/70; PULSE 92; TEMP 36.3; O2SAT 95
[2024-06-22 10:04] VITALS: BP 147/67; PULSE 95; O2SAT 95
[2024-06-22 10:05] VITALS: BP 139/74; PULSE 98; O2SAT 95
--- NOTE | 2024-06-22 10:05 | W.PM.PROCNOT ---
Date of procedure: 06/22/24 Pre-op diagnosis: Pain due to right sacroiliitis Post-op diagnosis: same as pre-op Procedure: Procedure: Right sacroiliac joint injection Medications: Bupivacaine 0.25% 4cc, depomedrol 40mg After informed consent was obtained, the patient was brought to the OR and placed in the prone position. The skin overlying the area was prepped and draped in sterile fashion ?using alcohol, after which a 25 gauge needle was used to access the nerve innervating the right sacroiliac joint under fluoroscopic guidance. Omnipaque contrast dye was injected to show absence of vascular or spinal canal uptake. After encountering the same we instilled 4 mL of solution. ?Postoperatively, needles were removed. The patient tolerated the procedure well and was ?transferred to recovery area in stable condition, to be discharged home after meeting ?criteria. Follow up as per the treatment plan. Anesthesia: Local Surgeon: Tanya Crowley Pathology: none sent Condition: stable Disposition: no change
[2024-06-22] MEDS: LIDOCAINE HCL 2% 400 MG/20 ML MDV INJ (10:07)
[2024-06-22] MEDS: METHYLPREDNISOLONE ACETATE 40 MG/ML VIAL INJ (10:07)
[2024-06-22] MEDS: BUPIVACAINE HCL 0.25% PF 25 MG/10 ML VIAL 2 ML INJ (10:07)
[2024-06-22] MEDS: IOHEXOL 240 MG/ML - 10 ML VIAL 24 MG INJ (10:07)
== END 2024-06-22 10:11 | disposition home or self-care (01) ==
LOC: SURGOUT 08:57
PROVIDERS: PCP Nurse Practitioner; Visit Provider Anesthesiology
DX: M46.1 Sacroiliitis, not elsewhere classified (principal); E11.8 Type 2 diabetes mellitus with unspecified complications; Z79.85 Long-term (current) use of injectable non-insulin antidiabetic drugs; Z79.84 Long term (current) use of oral hypoglycemic drugs
CPT/HCPCS: 27096; 82948; J0665; J1010; Q9966

== ENCOUNTER 2024-07-01 09:13 | Outpatient (OUT) | payer OTHER, MEDICARE, SELFPAY ==
--- OUTSIDE RECORDS SUMMARY | 2024-07-01 09:24 | XMS_ITS | CCD ---
Author Organization [facility] Care Team Providers Care Food Service Counter Clerk Name Role Phone House DO, Sr Jonathan Klein Primary Care Provider BARCLAYRADHA Referring Unavailabl e HOUSE, SR JONATHAN Klein Primary Care Unavailable Ana Luisa Curtis Unavailable GRACE, DR BASURTO Primary Care Unavailable HOLM ., DR RCIARDO Belcher Admitting Unavailable HOLM ., DR RICARDO [...] CRYS Consulting Unavailable HOLM ., DR RICARDO eBlcher Admitting Unavailable HOUSE, DR BASURTO Primary Care [...] Unavailable HOUSE, DR BASURTO Primary Care Unavailable FORDOCHE, DR RYAN Guzman Consulting Unavailable HOUSE, DR [...] RICARDO Belcher Admitting Unavailable HOLM ., DR RIACRDO Belcher Attending Unavailable LAKSHMIPATHY ., BILLY Consulting Nellie vailable HOUSE, DR BASURTO Primary Care Unavailable HOLM ., DR RICARDO Belcher Admitting Unavailable HOLM ., DR RICARDO Belcher Attending Unavailable PIERCE ., CRYS Consulting Unavailable Elle Hendricks Unavailable Shaikh Connelly MD Primary Care Provider [facility] UROLOGY NURSE, Sonam Unavailable [phone] Ramesh HOLLSI, Jose Primary Care Provider Jose Chandler MD Primary Care Provider [place] [facility] NURSE, Sonam Unavailable [phone] Rock UROLOGY NURSE, Za Unavailable Sivan Villegas DO Unavailable SHAIKH CONNELLY Attending Unavailable SHAIKH CONNELLY Attending Unavailable SHAIKH CONNELLY Attending Unavailable SONAM DRAKE Attending Unavailabl e VIDAL, SONAM Attending Unavailcurtis e SIVAN VILLEGAS Attending Unavailable SONAM DRAKE Referring Unavailabl e DRAKE, SONAM Attending Chantel DRAKE, SONAM Attending ALICIA Simmons Attending Unavailable ZA WILKERSON Attending Unavailable AMEENA VERA Attending Unavailable Lui Banks II Attending Lui Monzon II Admitting Chantel e NON STAFF Primary Care Unavailable NON STAFF Primary Care Provider Lui Monzon MD Attending Provider [phone] Medications Current Medications Medication Drug Class(es) Dates [...] 30 tablet 11/04/2023 12/18/2023 Discontinued Continuous Glucose Residential Mortgage Manager (Dexcom G7 Residential Mortgage Manager) device (20 sources) Start: 03-03-2024 Continuous Glu cose Residential Mortgage Manager (Dexcom G7 Residential Mortgage Manager) device Indications: Type 2 diabetes mellitus with diabetic microalbuminuria, without long-term current use of insulin ([facility]) 1 each continuously 1 each 03/03/2024 Active Continuous Glucose Sensor (Dexcom G7 Sensor) [facility] (20 sources) Start: 03-30-2024 Continuous Glu cose Sensor (Dexcom G7 Sensor) [facility] Indications: Type 2 diabetes mellitus with diabetic microalbuminuria, without long-term current use of insulin ([facility]) 1 each continuously 3 each 03/30/2024 Active Start: 03-03-2024 End: 03-30-2024 Continuous Glucose Sensor (D excom G7 Sensor) [facility] Indications: Type 2 diabetes mellitus with diabetic microalbuminuria, without long-term current use of insulin ([facility]) 1 each continuously 3 each 11 03/03/2024 03/30/2024 Discontinued (Reorder) Start: 03-03-2024 Continuous Glu cose Sensor (Dexcom G7 Sensor) [facility] Indications: Type 2 diabetes mellitus with diabetic microalbuminuria, without long-term current use of insulin ([facility]) 1 each continuously 3 each [...] 180 tablet 1 05/19/2024 08/17/2024 Active Start: 03-16-2024 End: 08-17-2024 take 1 tablet [...] and 1 capsule (75 mg) before bedtime. 90 capsule 2 06/23/2024 07/23/2024 Active Start: 03-21-2023 End: 06-19-2023 take 1 [...] (Crestor) 20 MG tablet Indications: Other hyperlipidemia Take 1 tablet (20 mg) by mouth Daily 90 tablet 1 03/03/2024 Active take 1 tablet by alonso th every twenty-four hours Crestor 20 MG 1 tablet Orally Once a day Active Semaglutide (Ozempic) 2 mg/dose (8 mg/3 mL) pen injector (1 source) Start: 04-17-2025 inject 2 mg by subcutaneous injection every week Semaglutide (Ozempic) 2 mg/dose (8 mg/3 mL) pen injector Active 2 MG SUBCUT every week May 28, 2024 12:00am Semaglutide, 2 MG/DOSE, (Ozempic, 2 MG/DOSE,) 8 MG/3ML solution pen-injector (8 sources) Start: 05-19-2024 End: 08-11-2024 Semaglutide, 2 [...] 12, 2017 1:00am January 15, 2017 2:23pm Finfjczjrffn-Go-I pablo-Minerals (Multiple Vitamin, Womens) Tablet (2 sources) Start: 01-12-2017 End: 01-15-2017 Xbrccfywhmqb-Zk-I pablo-Minerals (Multiple Vitamin, Womens) Tablet Discontinued PO [...] right wrist Episodic Other non-traumatic joint disorders (14 sources) Pain in right knee; Translations: [Pain [...] Chronic Other nutritional; endocrine; and metabolic disorders (13 sources) Body mass index 30+ - obesity; Translations: [Body mass index (BMI) 39.0-39.9, adult] Onset: 05-19-2024 05-19-2024 Chronic Other nutritional; endocrine; and metabolic disorders (13 sources) Hyperuricemia; Translations: [Hyperuricemia without signs of [...] lumbosacral region] Onset: 07-19-2021 Chronic Substance-related disorders (13 sources) Tobacco dependence caused by cigarettes; Translations: [...] By: Anton Penny on 05-28-2024 Study report [facility] [address] [place] [address] XRay Report Signed Patient: Karina De Oliveira MR#: [id number] : 1965 Acct:[id number] Age/Sex: 58 / F ADM Date: 5 [place] [facility] [place]: Type: [facility] Attending Dr: Lui Banks II, MD Copies to: Lui Banks MD~ Ordering Provider: Lui Banks MD Date of Service: 05/28/24 XR/XR knee RT 4V*: M25.561 - Pain in right knee ([id number]) XR/XR pelvis 1-2V: M25.561 - Pain in [...] KNEE. Impression dictated by: Moustapha Penny Jr., D.O.05/28/2024 3:24 PM Dictation Location: [facility]- Transcribed By: [facility] 05/28/24 1524 Dictated By: Moustapha Penny Jr, DO 05/28/24 1523 Signed By: 05/28/24 1524 [facility] XR knee RT 4V*on 05-28-2024 XR knee RT 4V* [facility] [address] [place] [id number] XRay Report Signed Patient: Karina De Oliveira MR#: [id number] : 1965 Acct:[id number] Age/Sex: 58 / F ADM Date: 05/28/24 [place] [facility] Room: Type: [facility] Attending Dr: Lui Banks II, MD Copies to: Lui Banks MD Ordering Provider: Lui Banks MD Date of Service: 05/28/24 XR/XR knee RT 4V*: M25.561 - Pain in right knee ([id number]) XR/XR pelvis 1-2V: M25.561 - Pain in [...] Levon Garcia Jr..OPasquale05/28/2024 3:24 PM Dictation Location: [place] [address] Transcribed By: LILLY 05/28/24 152 Dictated By: Moustapha Penny Jr, DO 05/28/24 152 Signed By: 05/28/24 152 Normal [facility] ALL CBC WITH AUTO DIFFon BASOPHILS ABSOLUTE AUTO 0.1 [facility] Basophils/100 WBC (Bld) 0.5 % 0.2 - 2.0 % [facility] Eosinophils/100 WBC (Bld) 4 % 0.9 - 7.0 % [facility] Erythrocyte distribution width (RBC) [Ratio] 14.6 % 11.0 - 15.0 % [facility] Hematocrit (Bld) [Volume fraction] 41.6 % 36.0 - 48.0 % [facility] Hemoglobin (Bld) [Mass/Vol] 14.1 g/dL 12.0 - 16.0 g/dL [facility] IMMATURE GRANULOCYTES ABS AUTO 0.07 High [facility] Immature granulocytes/100 WBC (Bld) 0.6 % High 0.0 - 0.5 % [facility] Interpretation and review of laboratory results Abnormal [facility] LYMPHOCYTES ABSOLUTE AUTO 3.6 [facility] Lymphocytes/100 WBC (Bld) 32.6 % 20.5 - 60.0 % [facility] MCH (RBC) [Entitic mass] 32.3 pg 26.7 - 34.0 pg [facility] MCHC (RBC) [Mass/Vol] 33.9 g/dL 29.9 - 35.2 g/dL [facility] MCV (RBC) [Entitic vol] 95.2 fL 81.0 - 99.0 fL [facility] MONOCYTES ABSOLUTE AUTO 0.8 [facility] Monocytes/100 WBC (Bld) 6.9 % 1.7 - 12.0 % [facility] NEUTROPHILS ABSOLUTE AUTO 6.2 [facility] Neutrophils/100 WBC (Bld) 55.4 % 43.0 - 75.0 % [facility] Platelet mean volume (Bld) [Entitic vol] 10.7 fL 9.5 - 13.5 fL [facility] TBH EO # 0.4 [facility] TBH PLT 193 [facility] TBH RBC 4.37 [facility] TB WBC 11.1 High [facility] XR Knee - right 3 Viewson [address] [address] XRay Report Signed Patient: KARINA DE OLIVEIRA MR#: [id number] : 1965 Acct:[id number] Age/Sex: 58 / F ADM Date: 05/21/24 Loc: LAB Attending Dr: Ameena Vera UROLOGY NURSE Ordering Physician: Ameena Vera NP Date of Service: 05/21/24 Procedure(s): XR knee RT 3V Accession Number(s): [id number] cc: Ameena Vera NP The [place] [id number] Patient Name: KARINA DE OLIVEIRA MRN: [facility]:[id number] date: 1965 Sex: F Assigned Patient Location: LAB Current Patient Location: LAB Accession/Order Number: [id number] Exam Date: 05/21/2024 13:21 Report Date: 05/21/2024 [...] D.O.05/21/2024 1:21 PM Dictation Location: [place] [address] Electronically authenticated by: [id number] Y Date: 05/21/2024 13:21 Dictated By: Moustapha Penny M.D. Signed By: 05/21/24 1324 DD/ 1321 TD/TT: Assistant Track And Field Coach: [facility] Radiology, Radiologist, MD - 05/21/[address] [address] XRay Report Signed Patient: KARINA DE OLIVEIRA MR#: [id number] : 1965 Acct:[id number] Age/Sex: 58 / F ADM Date: 05/21/24 Loc: LAB Attending Dr: Ameena Vera NP Ordering Physician: Ameena Vera NP Date of Service: 05/21/24 Procedure(s): XR knee RT 3V Accession Number(s): [id number] cc: Ameena Vera NP [place] [address] Patient Name: KARINA DE OLIVEIRA MRN: [facility]:[id number] date: 1965 Sex: F Assigned Patient Location: LAB Current Patient Location: LAB Accession/Order Number: [id number] Exam Date: 05/21/2024 13:21 Report Date: 05/21/2024 [...] D.O.05/21/2024 1:21 PM Dictation Location: [place] [address] Electronically authenticated by: [id number] Y Date: 05/21/2024 13:21 Dictated By: Moustapha Penny M.D. Signed By: 05/21/24 1324 DD/ 1321 TD/TT: Assistant Track And Field Coach: [facility] Radiology Study observation (narrative) [facility] XR Knee - right 3 ViewsOrder ed By: Radiologist Radiology on 05-21-2024 [facility] Work Phone: HbA1c (Bld) [Mass fraction]o n 05-19-2024 Interpretation and review of laboratory results Abnormal [facility] Laboratory - Hematology and Cell countson 05-19-2024 HbA1c (Bld) [Mass fraction] 6.70 % [facility] HbA1c (Bld) [Mass fraction]o n 03-30-2024 Interpretation and review of laboratory results Abnormal [facility] Laboratory - Hematology and Cell countson 03-30-2024 HbA1c (Bld) [Mass fraction] 6.9 % [facility] MM TOMOSYNTHESIS SCREENING B Ion 03-18-2024 [place] [address] Mammography Report Signed Patient: KARINA DE OLIVEIRA MR#: [id number] : 1965 Acct:[id number] Age/Sex: 58 / F ADM Date: 03/18/24 Loc: MAMMO Attending Dr: RAHDA BARCLAY Ordering Physician: RADHA BARCLAY Results: Date of Service: 03/18/24 Follow Up: Procedure(s): MM tomosynthesis screening BI Accession Number(s): [id number] cc: LOCO DRAKE SUSAN Patient Name: KARINA DE OLIVEIRA MR#: [id number] : 1965 Exam Date: 03/18/2024 Ordering Doctor: DR RADHA BARCLAY [facility] RADIOLOGY REPORT PROCEDURE: MM TOMOSYNTHESIS SCREENING BI [...] skin cancer at age 69. LOCATION: The [facility] BREAST COMPOSITION: There are scattered areas of [...] Cortes M.D. Signed By: 03/18/24 1454 DD/ 1454 TD/TT: Assistant Track And Field Coach: [facility] Radiology, Radiologist, MD - 03/18/2024 [place] [address] Mammography Report Signed Patient: KARINA DE OLIVEIRA MR#: [id number] : 1965 Acct:[id number] Age/Sex: 58 / F ADM Date: 03/18/24 Loc: MAMMO Attending Dr: RADHA BARCLAY Ordering Physician: RADHA BARCLAY Results: Date of Service: 03/18/24 Follow Up: Procedure(s): MM tomosynthesis screening BI Accession Number(s): [id number] cc: LOCO DRAKE SUSAN Patient Name: KARINA DE OLIVEIRA MR#: [id number] : 1965 Exam Date: 03/18/2024 Ordering Doctor: DR RADHA BARCLAY [facility] RADIOLOGY REPORT PROCEDURE: MM TOMOSYNTHESIS SCREENING BI [...] skin cancer at age 69. LOCATION: The [facility] BREAST COMPOSITION: There are scattered areas of [...] Cortes M.D. Signed By: 03/18/24 1454 DD/ 1454 TD/TT: Assistant Track And Field Coach: [facility] Radiology Study observation (narrative) [facility] MM TOMOSYNTHESIS SCREENING B IOrdered By: Radiologist Radiology on 03-18-2024 [facility] Work Phone: ALL CBC WITH AUTO DIFFon BASOPHILS ABSOLUTE AUTO 0.1 [facility] Basophils/100 WBC (Bld) 0.4 % 0.2 - 2.0 % [facility] Eosinophils/100 WBC (Bld) 3.2 % 0.9 - 7.0 % [facility] Erythrocyte distribution width (RBC) [Ratio] 15.6 % High 11.0 - 15.0 % [facility] Hematocrit (Bld) [Volume fraction] 42.4 % 36.0 - 48.0 % [facility] Hemoglobin (Bld) [Mass/Vol] 13.9 g/dL 12.0 - 16.0 g/dL [facility] IMMATURE GRANULOCYTES ABS AUTO 0.09 High [facility] Immature granulocytes/100 WBC (Bld) 0.7 % High 0.0 - 0.5 % [facility] Interpretation and review of laboratory results Abnormal [facility] LYMPHOCYTES ABSOLUTE AUTO 3.5 [facility] Lymphocytes/100 WBC (Bld) 27.7 % 20.5 - 60.0 % [facility] MCH (RBC) [Entitic mass] 31.4 pg 26.7 - 34.0 pg [facility] MCHC (RBC) [Mass/Vol] 32.8 g/dL 29.9 - 35.2 g/dL [facility] MCV (RBC) [Entitic vol] 95.7 fL 81.0 - 99.0 fL [facility] MONOCYTES ABSOLUTE AUTO 0.9 High [facility] Monocytes/100 WBC (Bld) 7.4 % 1.7 - 12.0 % [facility] NEUTROPHILS ABSOLUTE AUTO 7.7 High [facility] Neutrophils/100 WBC (Bld) 60.6 % 43.0 - 75.0 % [facility] Platelet mean volume (Bld) [Entitic vol] 10.9 fL 9.5 - 13.5 fL [facility] TBH EO # 0.4 [facility] TBH PLT 219 [facility] TB RBC 4.43 [facility] WBC 12.8 High [facility] XR LSPINE 2_3 VIEWSon 2022 XR LSPINE [...] PATTIE CORTES Date: 2022-06-07 11:15 Normal [facility] CBC AUTO DIFFon 04-12-2022 BASO # 0.1 103/ul Normal 0.0-0.1 The [facility] Comment on above: Performed By: #### C BC ####[facility] [address] [place] [address]DrPasquale Valenzuela Basophils/100 WBC (Bld) 0.5 % Normal 0.2-2.0 [facility] Comment on above: Performed By: #### C BC ####[facility] [address] [place] [id number] Valenzuela EO # 0.3 103/ul Normal 0.0-0.7 The [facility] Comment on above: Performed By: #### C BC ####[facility] [address] [place] [address]Dr. Ricky Nicolas Eosinophils/100 WBC (Bld) 3.0 % Normal 0.9-7.0 [facility] Comment on above: Performed By: #### C BC ####[facility] [address] [place], [place] [address]Dr. Ricky Nicolas Erythrocyte distribution width (RBC) [Ratio] 14.8 % Normal 11.0-15.0 [facility] Comment on above: Performed By: #### C BC ####[facility] [address] [place], [place] [address]Dr. Ricky Valenzuela Hematocrit (Bld) [Volume fraction] 40.6 % Normal 36.0-48.0 The [facility] Comment on above: Performed By: #### C BC ####[facility] [address] [place], [place] [address]Dr. Ricky Valenzuela Hemoglobin (Bld) [Mass/Vol] 13.5 g/dL Normal 12.0-16.0 [facility] Comment on above: Performed By: #### C BC ####[facility] [address] [place], [place] [address]Dr. Lesleysharron Nicolas IG # 0.16 10e3/ul Critically high 0.00-0.03 [facility] Comment on above: Performed By: #### C BC ####[facility] [address] [place], [place] [address]Dr. Ricky Valenzuela IG % 1.4 % Critically high 0.0-0.[address] [facility] Comment on above: Performed By: #### C BC ####[facility] [address] [place], [place] [address]DrPasquale Valenzuela LYMPH # 3.4 103/ul Normal 1.2-3.8 [facility] Comment on above: Performed By: #### C BC ####[facility] [address] [place], [place] [address]DrPasquale Valenzuela Lymphocytes/100 WBC (Bld) 30.4 % Normal 20.5-60.0 [facility] Comment on above: Performed By: #### C BC ####[facility] [address] [place], [place] [address]DrPasquale Valenzuela MANUAL DIFF REQ NO Normal [facility] Comment on above: Performed By: #### C BC ####[facility] [address] [place], [place] [address]DrPasquale Valenzuela MCH (RBC) [Entitic mass] 31.8 pg Normal 26.7-34.0 [facility] Comment on above: Performed By: #### C BC ####[facility] [address] [place], [place] [address]DrPasquale Valenzuela MCHC (RBC) [Mass/Vol] 33.3 g/dL Normal 29.9-35.2 [facility] Comment on above: Performed By: #### C BC ####[facility] [address] [place], [place] [address]DrPasquale Valenzuela MCV (RBC) [Entitic vol] 95.5 fL Normal 81.0-99.0 [facility] Comment on above: Performed By: #### C BC ####[facility] [address] [place], [place] [address]DrPasquale Valenzuela MONO # 0.9 103/ul Critically high 0.3-0.[address] [facility] Comment on above: Performed By: #### C BC ####[facility] [address] [place], [place] [address]DrPasquale Valenzuela Monocytes/100 WBC (Bld) 7.7 % Normal 1.7-12.0 [facility] Comment on above: Performed By: #### C BC ####[facility] [address] [place], [place] [address]DrPasquale Valenzuela NEUT # 6.3 103/ul Normal 1.4-6.5 [facility] Comment on above: Performed By: #### C BC ####[facility] [address] [place], [place] [address]DrPasquale Valenzuela Neutrophils/100 WBC (Bld) 57.0 % Normal 43.0-75.0 [facility] Comment on above: Performed By: #### C BC ####[facility] [address] [place] [address]Dr. Ricky Valenzuela Platelet mean volume (Bld) [Entitic vol] 9.8 fL Normal 9.5-13.5 [facility] Comment on above: Performed By: #### C BC ####[facility] [address] [place] [address]Dr. Ricky Valenzuela PLT 246 103/ul Normal 150-450 The [facility] Comment on above: Performed By: #### C BC ####[facility] [address] [place], [place] [address]Dr. Ricky Valenzuela RBC 4.25 106/ul Normal 4.20-5.40 The [facility] Comment on above: Performed By: #### C BC ####[facility] [address] [place], [place] [address]Dr. Ricky Valenzuela WBC 11.1 103/ul Critically high 4.0-11.0 The [facility] Comment on above: Performed By: #### C BC ####[facility] [address] [place], [place] [address]Dr. Ricky Valenzuela GLYCOHEMOGLOBIN A1Con 2022 ADA RECOMMENDATION SEE BELOW Normal [facility] Comment on above: Result Comment: ADA RECOMMENDED LIMIT 4.0 - 6.0 ADA THERAPEUTIC TARGET < 7.0 ACTION SUGGESTED > 7.0 Performed By: #### A 1C ####[facility] [address] [place], [place] [address]Dr. Ricky Valenzuela Glucose [Mass/Vol] 160 mg/dL Normal The [facility] Comment on above: Performed By: #### A 1C ####[facility] [address] [place], [place] [address]Dr. Ricky Valenzuela HbA1c (Bld) [Mass fraction] 7.2 % Critically high 4.5-6.2 [facility] Comment on above: Performed By: #### A 1C ####[facility] [address] [place] [address]Dr. Ricky Valenzuela MICROALBUMIN, RAND URon 03-0 mALB <1.3 Normal <=30.0 [facility] Comment on above: Performed By: #### M ALBR #### [facility] Laboratory [address] [place] [address] [address] Ricky Valenzuela PROF 14(COMP METB)on 023 Albumin [Mass/Vol] 3.3 g/dL Critically low 3.4-5.0 Th e [facility] Comment on above: Performed By: #### C MP #### [facility] [address] [place] [address] [address] Ricky Valenzuela Albumin/Globulin [Mass ratio] 0.9 {ratio} Normal [facility] Comment on above: Performed By: #### C MP #### [facility] [address] [place] [address] Dr. Ricky Valenzuela ALP [Catalytic activity/Vol] 90 U/L Normal 46-116 [facility] Comment on above: Performed By: #### C MP #### [facility] [address] [place] [address] [address] Ricky Valenzuela ALT [Catalytic activity/Vol] 42 U/L Normal 14-59 [facility] Comment on above: Performed By: #### C MP #### [facility] [address] [place] [address] Dr. Ricky Valenzuela Anion gap [Moles/Vol] 10.1 mmol/L Normal [facility] Comment on above: Performed By: #### C MP #### [facility] [address] [place] [address] Dr. Ricky Valenzuela AST [Catalytic activity/Vol] 21 U/L Normal 15-37 [facility] Comment on above: Performed By: #### C MP #### [facility] [address] [place] [address] Dr. Ricky Valenzuela Bilirubin [Mass/Vol] 0.3 mg/dL Normal 0.2-1.0 [facility] Comment on above: Performed By: #### C MP #### [facility] [address] [place] [address] [address] Ricky Valenzuela Calcium [Mass/Vol] 9.8 mg/dL Normal 8.5-10.1 [facility] Comment on above: Performed By: #### C MP #### [facility] [address] [place] [address] Dr. Ricky Valenzuela Chloride [Moles/Vol] 99 mmol/L Normal 98-107 [facility] Comment on above: Performed By: #### C MP #### [facility] [address] [place] [address] Dr. Ricky Valenzuela CO2 [Moles/Vol] 33.7 mmol/L Critically high 21.0-32.0 [facility] Comment on above: Performed By: #### C MP #### [facility] [address] [place] [address] Dr. Ricky Valenzuela Creatinine [Mass/Vol] 0.94 mg/dL Normal 0.55-1.02 [facility] Comment on above: Performed By: #### C MP #### [facility] [address] [place] [address] Dr. Ricky Valenzuela EGFR-AF ROMANIAN >60 Normal >=60 [facility] Comment on above: Performed By: #### C MP #### [facility] [address] [place] [address] Dr. Ricky Valenzuela EGFR-NON AF ROMANIAN >60 Normal >=60 [facility] Comment on above: Performed By: #### C MP #### [facility] [address] [place] [address] Dr. Ricky Valenzuela Globulin (S) [Mass/Vol] 3.8 g/dL Normal [facility] Comment on above: Performed By: #### C MP #### [facility] [address] [place] [address] Dr. Ricky Valenzuela Glucose [Mass/Vol] 168 mg/dL Critically high 74-106 [facility] Comment on above: Performed By: #### C MP #### [facility] [address] [place] [address] Dr. Ricky Valenzuela Potassium [Moles/Vol] 4.8 mmol/L Normal 3.5-5.1 [facility] Comment on above: Performed By: #### C MP #### [facility] [address] [address] [address] Ricky Valenzuela Protein [Mass/Vol] 7.1 g/dL Normal 6.4-8.2 [facility] Comment on above: Performed By: #### C MP #### [facility] [id number] Ricky Valenzuela Sodium [Moles/Vol] 138 mmol/L Normal 136-145 [facility] Comment on above: Performed By: #### C MP #### [facility] [address] [address] [address] Ricky Valenzuela Urea nitrogen [Mass/Vol] 22.0 mg/dL Critically high 7.0-18.0 [facility] Comment on above: Performed By: #### C MP #### [facility] [address] [place] [address] Dr. Ricky Valenzuela Urea nitrogen/Creatinine [Mass ratio] 23.4 mg/mg Normal [facility] Comment on above: Performed By: #### C MP #### [facility] [address] [place], [place] [id number] Dr. Ricky Valenzuela Cytologyon 08-30-2021 Cytology (NOTE) INTERPRETATION Vaginal material, (ThinPrep vial, Imaging-assisted review): Specimen Adequacy: Satisfactory for evaluation. Descriptive Diagnosis: Negative for intraepithelial lesion or malignancy. Cell Stripper: CLARK Delacruz(ASCP) Electronically Signed Out zackary/09/07/2021 Source: A: Vaginal material, (ThinPrep vial, Imaging-assisted review) Clinical History Hysterectomy Surgery: Salpingostomy; Ovary removal Z12.4 Encounter for screening for malignant neoplasm of cervix GYNECOLOGIC CYTOLOGY REPORT Patient Name: KARINA DE OLIVEIRA [facility] Rec: [id number] Path Number: [id number] [facility] CONSULTING PATHOLOGISTS [facility] [address] [place] [address]. [place], [place] [address] Normal [facility] Comment on above: Performed By: #### P PPVP #### [employer] [address] [place] [address] Computer Science Intern: Luca Cummins MD CBC AUTO DIFFon 08-09-2021 BASO # 0.1 103/ul Normal 0.0-0.1 [facility] Comment on above: Performed By: #### C BC #### [facility] [address] [address] [address] Ricky Valenzuela Basophils/100 WBC (Bld) 0.8 % Normal 0.2-2.0 [facility] Comment on above: Performed By: #### C BC #### [facility] [address] [place] [address] Dr. Ricky Valenzuela EO # 0.2 103/ul Normal 0.0-0.7 [facility] Comment on above: Performed By: #### C BC #### [facility] [address] [place] [address] Dr. Ricky Valenzuela Eosinophils/100 WBC (Bld) 2.1 % Normal 0.9-7.0 [facility] Comment on above: Performed By: #### C BC #### [facility] [address] [place] [address] Dr. Ricky Valenzuela Erythrocyte distribution width (RBC) [Ratio] 15.2 % Critically high 11.0-15.0 [facility] Comment on above: Performed By: #### C BC #### [facility] [address] [place] [address] Dr. Ricky Valenzuela Hematocrit (Bld) [Volume fraction] 41.5 % Normal 36.0-48.0 [facility] Comment on above: Performed By: #### C BC #### [facility] [address] [address] [address] Ricky Valenzuela Hemoglobin (Bld) [Mass/Vol] 13.5 g/dL Normal 12.0-16.0 [facility] Comment on above: Performed By: #### C BC #### [facility] [address] [place] [address] Dr. Ricky Valenzuela IG # 0.42 10e3/ul Critically high 0.00-0.03 [facility] Comment on above: Performed By: #### C BC #### [facility] [address] [place] [address] Dr. Ricky Valenzuela IG % 3.8 % Critically high 0.0-0.5 [facility] Comment on above: Performed By: #### C BC #### [facility] [address] [address] [address] Ricky Valenzuela LYMPH # 3.3 103/ul Normal 1.2-3.8 [facility] Comment on above: Performed By: #### C BC #### [facility] [address] [place] [address] Dr. Ricky Valenzuela Lymphocytes/100 WBC (Bld) 29.1 % Normal 20.5-60.0 [facility] Comment on above: Performed By: #### C BC #### [facility] [address] [place] [address] Dr. Ricky Valenzuela MANUAL DIFF REQ NO Normal [facility] Comment on above: Performed By: #### C BC #### [facility] [address] [place] [address] Dr. Ricky Valenzuela MCH (RBC) [Entitic mass] 32.4 pg Normal 26.7-34.0 [facility] Comment on above: Performed By: #### C BC #### [facility] [address] [place] [address] Dr. Ricky Valenzuela MCHC (RBC) [Mass/Vol] 32.5 g/dL Normal 29.9-35.2 [facility] Comment on above: Performed By: #### C BC #### [facility] [address] [place] [address] Dr. Ricky Valenzuela MCV (RBC) [Entitic vol] 99.5 fL Critically high 81.0-99.0 [facility] Comment on above: Performed By: #### C BC #### [facility] [address] [place] [address] Dr. Ricky Valenzuela MONO # 0.8 103/ul Normal 0.3-0.8 [facility] Comment on above: Performed By: #### C BC #### [facility] [address] [address] [address] Ricky Valenzuela Monocytes/100 WBC (Bld) 7.5 % Normal 1.7-12.0 [facility] Comment on above: Performed By: #### C BC #### [facility] [address] [address] [address] Ricky Valenzuela NEUT # 6.3 103/ul Normal 1.4-6.5 [facility] Comment on above: Performed By: #### C BC #### [facility] [address] [address] [address] Ricky Valenzuela Neutrophils/100 WBC (Bld) 56.7 % Normal 43.0-75.0 [facility] Comment on above: Performed By: #### C BC #### [facility] [address] [place] [address] Dr. Ricky Valenzuela Platelet mean volume (Bld) [Entitic vol] 9.8 fL Normal 9.5-13.5 [facility] Comment on above: Performed By: #### C BC #### [facility] [address] [address] [address] Ricky Valenzuela PLT 265 103/ul Normal 150-450 [facility] Comment on above: Performed By: #### C BC #### [facility] [address] [address] [address] Ricky Valenzuela RBC 4.17 106/ul Critically low 4.20-5.[address] [facility] Comment on above: Performed By: #### C BC #### [facility] [address] [address] [address] Ricky Valenzuela WBC 11.2 103/ul Critically high 4.0-11.0 [facility] Comment on above: Performed By: #### C BC #### [facility] [address] [address] [address] Ricky Valenzuela GLYCOHEMOGLOBIN A1Con 2021 ADA RECOMMENDATION SEE BELOW Normal [facility] Comment on above: Result Comment: ADA RECOMMENDED LIMIT 4.0 - 6.0 ADA THERAPEUTIC TARGET < 7.0 ACTION SUGGESTED > 7.0 Performed By: #### A 1C ####[facility] [id number] [id number]. Ricky Valenzuela Glucose [Mass/Vol] 183 mg/dL Normal [facility] Comment on above: Performed By: #### A 1C ####[facility] [id number] [place], [place] [address]LxDr. Ricky Valenzuela HbA1c (Bld) [Mass fraction] 8.0 % Critically high 4.5-6.2 [facility] Comment on above: Performed By: #### A 1C ####[facility] [id number] [id number]. Ricky Valenzuela LIPID PROFILEon 08-09-2021 CHOL-HDL RATIO NORM SEE BELOW Normal [place] Comment on above: Result Comment: 3.3 - 4.4 LOW RISK 4.4 - 7.1 AVERAGE RISK 7.1 - 11.0 MODERATE RISK >11.0 HIGH RISK Performed By: #### C MP, LIPID #### [facility] [address] [address] [address] Ricky Valenzuela Cholesterol [Mass/Vol] 239 mg/dL Critically high <=200 [facility] Comment on above: Performed By: #### C MP, LIPID #### [facility] [address] [address] [address] Ricky Valenzuela Cholesterol in HDL [Mass/Vol] 36 mg/dL Critically low 40-60 [facility] Comment on above: Performed By: #### C MP, LIPID #### [facility] [address] [address] [address] Ricky Valenzuela Cholesterol in LDL [Mass/Vol] 164.2 mg/dL Normal [facility] Comment on above: Performed By: #### C MP, LIPID #### [facility] [address] [address] [address] Ricky Valenzuela Cholesterol.total/Ch olesterol in HDL [Mass ratio] 6.6 {ratio} Normal [facility] Comment on above: Performed By: #### C MP, LIPID #### [facility] [address] [address] [address] Ricky Valenzuela HDL NORMAL > or = 60 mg/dl - LO W CARDIOVASCULAR RISK <40 mg/dl - HIGH CARDIOVASCULAR RISK Normal [facility] Comment on above: Performed By: #### C MP, LIPID #### [facility] [address] [address] [address] Ricky Valenzuela LDL CALC NORMAL SEE BELOW Normal [facility] Comment on above: Result Comment: <100 mg/dl OPTIMAL 100 - 129 mg/dl NEAR OR ABOVE OPTIMAL 130 - 159 mg/dl BORDERLINE HIGH 160 - 189 mg/dl HIGH >190 mg/dl VERY HIGH Performed By: #### C MP, LIPID #### [facility] [address] [address] [address] Ricky Valenzuela Triglyceride [Mass/Vol] 194 mg/dL Critically high <=150 [facility] Comment on above: Performed By: #### C MP, LIPID #### [facility] [address] [address] [address] Ricky Valenzuela VLDL CALC 38.8 mg/dL Normal [facility] Comment on above: Performed By: #### C MP, LIPID #### [facility] [address] [address] [address] Ricky Valenzuela MICROALBUMIN, RAND URon 07-13 mALB 13.1 mg/L Normal <=30.0 [facility] Comment on above: Performed By: #### M ALBR ####[facility] [id number] [address]Dr. Ricky Valenzuela PROF 14(COMP METB)on 022 Albumin [Mass/Vol] 3.3 g/dL Critically low 3.4-5.0 [facility] Comment on above: Performed By: #### C MP, LIPID #### [facility] [address] [address] [address] Ricky Valenzuela Albumin/Globulin [Mass ratio] 0.8 {ratio} Normal [facility] Comment on above: Performed By: #### C MP, LIPID #### [facility] [address] [address] [address] Ricky Valenzuela ALP [Catalytic activity/Vol] 93 U/L Normal 46-116 [facility] Comment on above: Performed By: #### C MP, LIPID #### [facility] [address] [address] [address] Ricky Valenzuela ALT [Catalytic activity/Vol] 37 U/L Normal 14-59 [facility] Comment on above: Performed By: #### C MP, LIPID #### [facility] [address] [address] [address] Ricky Valenzuela Anion gap [Moles/Vol] 10.9 mmol/L Normal [facility] Comment on above: Performed By: #### C MP, LIPID #### [facility] [address] [place] [address] Dr. Ricky Valenzuela AST [Catalytic activity/Vol] 10 U/L Critically low 15-37 [facility] Comment on above: Performed By: #### C MP, LIPID #### [facility] [address] [place] [address] Dr. Ricky Valenzuela Bilirubin [Mass/Vol] 0.2 mg/dL Normal 0.2-1.0 [facility] Comment on above: Performed By: #### C MP, LIPID #### [facility] [address] [place] [address] Dr. Ricky Valenzuela Calcium [Mass/Vol] 9.0 mg/dL Normal 8.5-10.1 [facility] Comment on above: Performed By: #### C MP, LIPID #### [facility] [address] [place] [address] Dr. Ricky Valenzuela Chloride [Moles/Vol] 100 mmol/L Normal 98-107 [facility] Comment on above: Performed By: #### C MP, LIPID #### [facility] [address] [place] [address] Dr. Ricky Valenzuela CO2 [Moles/Vol] 32.2 mmol/L Critically high 21.0-32.0 [facility] Comment on above: Performed By: #### C MP, LIPID #### [facility] [address] [place] [address] Dr. Ricky Valenzuela Creatinine [Mass/Vol] 0.95 mg/dL Normal 0.55-1.02 [facility] Comment on above: Performed By: #### C MP, LIPID #### [facility] [address] [place] [address] Dr. Ricky Valenzuela EGFR-AF ROMANIAN >60 Normal >=60 [facility] Comment on above: Performed By: #### C MP, LIPID #### [facility] [address] [address] [address] Ricky Valenzuela EGFR-NON AF ROMANIAN >60 Normal >=60 [facility] Comment on above: Performed By: #### C MP, LIPID #### [facility] [address] [place] [address] Dr. Ricky Valenzuela Globulin (S) [Mass/Vol] 4.2 g/dL Normal [facility] Comment on above: Performed By: #### C MP, LIPID #### [facility] [address] [place] [address] Dr. iRcky Valenzuela Glucose [Mass/Vol] 200 mg/dL Critically high 74-106 [facility] Comment on above: Performed By: #### C MP, LIPID #### [facility] [address] [place] [address] Dr. Ricky Valenzuela Potassium [Moles/Vol] 4.1 mmol/L Normal 3.5-5.1 [facility] Comment on above: Performed By: #### C MP, LIPID #### [facility] [address] [place] [address] Dr. Ricky Valenzuela Protein [Mass/Vol] 7.5 g/dL Normal 6.4-8.2 [facility] Comment on above: Performed By: #### C MP, LIPID #### [facility] [address] [place] [address] Dr. Ricky Valenzuela Sodium [Moles/Vol] 139 mmol/L Normal 136-145 [facility] Comment on above: Performed By: #### C MP, LIPID #### [facility] [address] [place] [address] Dr. Ricky Valenzuela Urea nitrogen [Mass/Vol] 13.0 mg/dL Normal 7.0-18.0 [facility] Comment on above: Performed By: #### C MP, LIPID #### [facility] [address] [address] [address] Ricky Valenzuela Urea nitrogen/Creatinine [Mass ratio] 13.7 mg/mg Normal [facility] Comment on above: Performed By: #### C MP, LIPID #### [facility] [address] [address] [address] Ricky Valenzuela POINT OF CARE GLUCOSEon 05- Glucose [Mass/Vol] 176 mg/dL Critically high 74-106 [facility] Comment on above: Performed By: #### P OCGLUC #### [facility] [address] [address] [address] Ricky Valenzuela Vital Signs Date Time Vital Sign Value Performing Clinician Facility 05-28-2024 13:16-0400 Body height 154.94 cm [facility] 05-28-2024 13:16-0400 Body mass index (BMI) [Ratio] 39.4 kg/m2 [facility] 05-28-2024 13:16-0400 Body weight 94.8 kg [facility] 05-19-2024 11:10-0400 Body height 157.5 cm Ameena Vera UROLOGY NURSE Work Phone: [facility] 05-19-2024 11:10-0400 Body mass index (BMI) [Ratio] 39.03 kg/m2 Ameena Vera UROLOGY NURSE Work Phone: [facility] 05-19-2024 11:10-0400 Body temperature 98.29 [degF] Ameena Vera UROLOGY NURSE Work Phone: [facility] 05-19-2024 11:10-0400 Body weight 96.8 kg Ameena Vera UROLOGY NURSE Work Phone: [facility] 05-19-2024 11:10-0400 Diastolic blood pressure 80 mm[Hg] Ameena Vera UROLOGY NURSE Work Phone: [facility] 05-19-2024 11:10-0400 Heart rate 91 /min Ameena Sheffieldz UROLOGY NURSE Work Phone: [facility] 05-19-2024 11:10-0400 Respiratory rate 18 /min Ameena Sheffieldz UROLOGY NURSE Work Phone: [facility] 05-19-2024 11:10-0400 SaO2% (BldA) [Mass fraction] 96 % Ameena Sheffieldz UROLOGY NURSE Work Phone: [facility] 05-19-2024 11:10-0400 Systolic blood pressure 116 mm[Hg] Ameena Davisholz UROLOGY NURSE Work Phone: [facility] 04-21-2024 13:08-0400 Body height 157.5 cm Za Gillmor UROLOGY NURSE Work Phone: [facility] 04-21-2024 13:08-0400 Body mass index (BMI) [Ratio] 39.51 kg/m2 Za Gillmor UROLOGY NURSE Work Phone: [facility] 04-21-2024 13:08-0400 Body weight 97.98 kg Za Gillmor UROLOGY NURSE Work Phone: [facility] 04-21-2024 13:08-0400 Diastolic blood pressure 86 mm[Hg] Za Gillmor UROLOGY NURSE Work Phone: [facility] 04-21-2024 13:08-0400 Heart rate 96 /min Za Gillmor UROLOGY NURSE Work Phone: [facility] 04-21-2024 13:08-0400 SaO2% (BldA) [Mass fraction] 93 % Za Gillmor UROLOGY NURSE Work Phone: [facility] 04-21-2024 13:08-0400 Systolic blood pressure 148 mm[Hg] Za Gillmor UROLOGY NURSE Work Phone: [facility] 03-30-2024 09:40-0500 Body height 157.5 cm Sonam Drake UROLOGY NURSE Work Phone: [facility] 03-30-2024 09:40-0500 Body mass index (BMI) [Ratio] 39.51 kg/m2 Sonam Drake UROLOGY NURSE Work Phone: [facility] 03-30-2024 09:40-0500 Body temperature 97.3 [degF] Sonam Drake UROLOGY NURSE Work Phone: [facility] 03-30-2024 09:40-0500 Body weight 97.98 kg Sonam Drake UROLOGY NURSE Work Phone: [facility] 03-30-2024 09:40-0500 Diastolic blood pressure 74 mm[Hg] Sonam Drake UROLOGY NURSE Work Phone: [facility] 03-30-2024 09:40-0500 Heart rate 76 /min Sonam Drake UROLOGY NURSE Work Phone: [facility] 03-30-2024 09:40-0500 Respiratory rate 16 /min Sonam Drake UROLOGY NURSE Work Phone: [facility] 03-30-2024 09:40-0500 SaO2% (BldA) [Mass fraction] 98 % Sonam Drake UROLOGY NURSE Work Phone: [facility] 03-30-2024 09:40-0500 Systolic blood pressure 130 mm[Hg] Sonam Drake UROLOGY NURSE Work Phone: [facility] 03-03-2024 10:13-0500 Body height 157.5 cm Sonam Drake UROLOGY NURSE Work Phone: [facility] 03-03-2024 10:13-0500 Body mass index (BMI) [Ratio] 39.51 kg/m2 Sonam Drake UROLOGY NURSE Work Phone: [facility] 03-03-2024 10:13-0500 Body temperature 97.2 [degF] Sonam Drake UROLOGY NURSE Work Phone: [facility] 03-03-2024 10:13-0500 Body weight 97.98 kg Sonam Riverpatrick UROLOGY NURSE Work Phone: [facility] 03-03-2024 10:13-0500 Diastolic blood pressure 76 mm[Hg] Sonam Drake UROLOGY NURSE Work Phone: [facility] 03-03-2024 10:13-0500 Heart rate 84 /min Sonam Drake UROLOGY NURSE Work Phone: [facility] 03-03-2024 10:13-0500 Respiratory rate 16 /min Sonam Drake UROLOGY NURSE Work Phone: [facility] 03-03-2024 10:13-0500 SaO2% (BldA) [Mass fraction] 96 % Sonam Riverpatrick UROLOGY NURSE Work Phone: [facility] 03-03-2024 10:13-0500 Systolic blood pressure 120 mm[Hg] Sonam Drake UROLOGY NURSE Work Phone: [facility] 12-31-2023 10:06-0500 Body height 157.5 cm Sivan Solo DO Work Phone: [facility] 12-31-2023 10:06-0500 Body mass index (BMI) [Ratio] 39.14 kg/m2 Sivan Solo DO Work Phone: [facility] 12-31-2023 10:06-0500 Body weight 97.07 kg Sivan Solo DO Work Phone: [facility] 12-31-2023 10:06-0500 Diastolic blood pressure 72 mm[Hg] Sivan Solo DO Work Phone: [facility] 12-31-2023 10:06-0500 Heart rate 95 /min Sivan Solo DO Work Phone: [facility] 12-31-2023 10:06-0500 SaO2% (BldA) [Mass fraction] 97 % Sivan Solo DO Work Phone: [facility] 12-31-2023 10:06-0500 Systolic blood pressure 118 mm[Hg] Sivan Villegas DO Work Phone: [facility] 12-30-2023 10:46-0500 Body mass index (BMI) [Ratio] 40.06 kg/m2 Sonam Drake UROLOGY NURSE Work Phone: [facility] 12-30-2023 10:46-0500 Body weight 99.34 kg Sonam Drake UROLOGY NURSE Work Phone: [facility] 12-30-2023 10:46-0500 Diastolic blood pressure 74 mm[Hg] Sonam Drake UROLOGY NURSE Work Phone: [facility] 12-30-2023 10:46-0500 Heart rate 97 /min Sonam Drake UROLOGY NURSE Work Phone: [facility] 12-30-2023 10:46-0500 SaO2% (BldA) [Mass fraction] 98 % Sonam Drake UROLOGY NURSE Work Phone: [facility] 12-30-2023 10:46-0500 Systolic blood pressure 98 mm[Hg] Sonam Drake UROLOGY NURSE Work Phone: [facility] 10-03-2023 10:07-0400 Body height 157.5 cm Sonam Drake UROLOGY NURSE Work Phone: [facility] 10-03-2023 10:07-0400 Body mass index (BMI) [Ratio] 39.32 kg/m2 Sonam Drake UROLOGY NURSE Work Phone: [facility] 10-03-2023 10:07-0400 Body temperature 97.5 [degF] Sonam Drake UROLOGY NURSE Work Phone: [facility] 10-03-2023 10:07-0400 Body weight 97.52 kg Sonam Drake UROLOGY NURSE Work Phone: [facility] 10-03-2023 10:07-0400 Diastolic blood pressure 70 mm[Hg] Sonam Drake UROLOGY NURSE Work Phone: [facility] 10-03-2023 10:07-0400 Heart rate 107 /min Sonam Riverpatrick UROLOGY NURSE Work Phone: [facility] Comment on above: 97% O2 10-03-2023 10:07-0400 Systolic blood pressure 90 mm[Hg] Sonam Riverpatrick UROLOGY NURSE Work Phone: [facility] 01-18-2023 09:10-0500 Body height 156.21 cm Elle Ruthie Other [employer] Other 01-18-2023 09:10-0500 Body mass index (BMI) [Ratio] 42.82 kg/m2 Elle Ruthie Other [employer] Data Other 01-18-2023 09:10-0500 Body temperature 98.2 [degF] Elle Ruthie Other [employer] Other 01-18-2023 09:10-0500 Body weight 104.51 kg Elle Ruthie Other [employer] Other 01-18-2023 09:10-0500 Diastolic blood pressure 92 mm[Hg] Ellesasha Hendricks Other [employer] Other 01-18-2023 09:10-0500 Respiratory rate 18 /min Elle Ruthie Other [employer] Other 01-18-2023 09:10-0500 SaO2% (BldA) [Mass fraction] 97 % Elle Ruthie Other [employer] Other 01-18-2023 09:10-0500 Systolic blood pressure 145 mm[Hg] Elle Ruthie Other [facility] [employer] Other Encounters Encounter Date Encounter Type Care Provider Facility Start: 06-23-2024 End: 06-23-2024 Refill Ameena Vera UROLOGY NURSE Work Phone: [facility] Comment on above: Diabetic polyneuropa thy associated with type 2 diabetes mellitus ([facility]) Start: 06-11-2024 End: 06-11-2024 Refill Ameena Vera UROLOGY NURSE Work Phone: [facility] Comment on above: Acute non-recurrent sinusitis of other sinus (Primary Dx) Start: 06-03-2024 End: 06-03-2024 Orders Only Ameena Vera UROLOGY NURSE Work Phone: [facility] Comment on above: Hypercalcemia (Prima ry Dx); Low serum parathyroid hormone (PTH) Start: 05-28-2024 End: 05-28-2024 Patient encounter procedure [facility] Work Phone: Start: 05-28-2024 End: 05-28-2024 Patient encounter procedure [facility] Start: 05-28-2024 End: 05-28-2024 ambulatory Lui Banks II Facility:[facility] Start: 05-22-2024 End: 05-22-2024 Orders Only Ameena Vera UROLOGY NURSE Work Phone: [facility] Comment on above: Hypercalcemia (Prima ry Dx) Start: 05-21-2024 End: 05-21-2024 Clinisync Result Encounter Ameena Vera UROLOGY NURSE Work Phone: [facility] External Department Unsolicited Start: 05-21-2024 End: 05-21-2024 Clinisync Result Encounter Ameena Chuy UROLOGY NURSE Work Phone: [facility] Unsolicited Start: 05-19-2024 End: 05-19-2024 Bamboo flowsheet Ameena Vera UROLOGY NURSE Work Phone: [facility] Start: 05-19-2024 End: 05-19-2024 Bamboo flowsheet Ameena Vera UROLOGY NURSE Work Phone: [facility] Start: 05-19-2024 End: 05-19-2024 ambulatory AMEENA CHUY Not Available Start: 05-19-2024 End: 05-19-2024 Office outpatient visit 25 minutes Ameena Vera UROLOGY NURSE Work Phone: [facility] Comment on above: Type 2 diabetes cory itus with diabetic microalbuminuria, without long-term current use of insulin ([facility]) (Primary Dx); Morbid (severe) obesity due to excess calories ([facility]); Other hyperlipidemia; Body mass index (BMI) 39.0-39.9, adult; JANETT (obstructive sleep apnea); Bilateral lower extremity edema; Migraine with aura and without status migrainosus, not intractable ([facility]); Cigarette nicotine dependence without complication; Hypercalcemia; Essential hypertension; Elevated blood uric acid level; Lumbar back pain; Gastroesophageal reflux disease without esophagitis; Chronic gout of multiple sites, unspecified cause; Acute pain of right knee; Diabetic polyneuropathy associated with type 2 diabetes mellitus ([facility]) Start: 05-06-2024 End: 05-06-2024 Tomasz Chandler MD Work Phone: [facility] Comment on above: Bilateral lower extr emity edema (Primary Dx) Start: 04-21-2024 End: 04-21-2024 Bamboo flowsheet Za Wilkerson UROLOGY NURSE Work Phone: [facility] Start: 04-21-2024 End: 04-21-2024 Bamboo flowsheet Za Wilkerson UROLOGY NURSE Work Phone: [facility] Start: 04-21-2024 End: 04-21-2024 ambulatory ZA WILKERSON Not Available Start: 04-21-2024 End: 04-21-2024 Office outpatient visit 25 minutes Za Wilkerson UROLOGY NURSE Work Phone: [facility] Comment on above: JANETT (obstructive sle ep apnea) (Primary Dx); Hypersomnia; Snoring; Primary insomnia; Tobacco abuse Start: 03-30-2024 End: 03-30-2024 Bamboo flowsheet Sonam Drake UROLOGY NURSE Work Phone: [facility] Start: 03-30-2024 End: 03-30-2024 Bamboo flowsheet Sonam Valenciatrick UROLOGY NURSE Work Phone: [facility] Start: 03-30-2024 End: 03-30-2024 Office outpatient visit 15 minutes Alicia Monroy MD Work Phone: [facility] Comment on above: Hidradenitis suppura tiva (Primary Dx); Lentigines; Melanocytic nevus of trunk; Congenital non-neoplastic nevus; History of basal cell carcinoma Start: 03-30-2024 End: 03-30-2024 Refill Jolly Castaneda MA [facility] Comment on above: Type 2 diabetes cory itus with diabetic microalbuminuria, without long-term current use of insulin (CMS/HCC) Start: 03-30-2024 End: 03-30-2024 Office outpatient visit 15 minutes Sonam Drake UROLOGY NURSE Work Phone: [facility] Comment on above: Type 2 diabetes cory itus with diabetic microalbuminuria, without long-term current use of insulin (CMS/HCC) (Primary Dx); Essential hypertension; Other hyperlipidemia ([facility]); JANETT (obstructive sleep apnea); Type 2 diabetes mellitus without complication, without long-term current use of insulin (CMS/HCC) Start: 03-18-2024 End: 03-18-2024 Clinisync Result Encounter Generic External Data Provider [facility] External Department Unsolicited Start: 03-18-2024 End: 03-18-2024 Clinisync Result Encounter Generic External Data Provider [facility] External Department Unsolicited Start: 03-16-2024 End: 03-16-2024 Refill Sonam Valenciatrick UROLOGY NURSE Work Phone: [facility] Comment on above: Gastroesophageal ref lux disease without esophagitis Start: 03-09-2024 End: 03-09-2024 Refill Sonam Mansfieldzpatrick UROLOGY NURSE Work Phone: [facility] Comment on above: Osteoporosis, unspec ified osteoporosis type, unspecified pathological fracture presence ([facility]) Start: 03-03-2024 End: 03-03-2024 Bamboo flowsheet Sonam Valenciatrick UROLOGY NURSE Work Phone: [facility] Start: 03-03-2024 End: 03-03-2024 Bamboo flowsheet Sonam Princek UROLOGY NURSE Work Phone: [facility] Start: 03-03-2024 End: 03-03-2024 ambulatory SONAMMINA PRINCEK Not Available Start: 03-03-2024 End: 03-03-2024 Office outpatient visit 10 minutes Sonam Drake UROLOGY NURSE Work Phone: [facility] Comment on above: Upper respiratory in fection with cough and congestion (Primary Dx); Lumbar back pain; Migraine with aura and without status migrainosus, not intractable ([facility]); Type 2 diabetes mellitus with diabetic microalbuminuria, without long-term current use of insulin ([facility]); Diabetic polyneuropathy associated with type 2 diabetes mellitus ([facility]); Other hyperlipidemia ([facility]) Start: 01-30-2024 End: 01-30-2024 Refill Jolly Castaneda MA [facility] Comment on above: Lumbar back pain (Pr imary Dx); Type 2 diabetes mellitus with diabetic microalbuminuria, without long-term current use of insulin ([facility]) Start: 01-14-2024 End: 01-14-2024 Refill Jolly Castaneda MA [facility] Comment on above: Lumbar back pain Start: 12-31-2023 End: 12-31-2023 Clinisync Result Encounter Sonam Drake UROLOGY NURSE Work Phone: [facility] External Department Unsolicited Start: 12-31-2023 End: 12-31-2023 Clinisync Result Encounter Sonam Drake UROLOGY NURSE Work Phone: [facility] External Department Unsolicited Start: 12-31-2023 End: 12-31-2023 Office consultation new/estab patient 60 min Sivan Villegas DO Work Phone: [facility] Comment on above: JANETT (obstructive sle ep apnea) (Primary Dx); Hypersomnia; Snoring; Primary insomnia; Tobacco abuse Start: 12-31-2023 End: 12-31-2023 ambulatory SIVAN VILLEGAS Not Available Start: 12-30-2023 End: 12-30-2023 Bamboo flowsheet Sonam Princek UROLOGY NURSE Work Phone: [facility] Start: 12-30-2023 End: 12-30-2023 Bamboo flowsheet Sonam Mansfieldzpatrick UROLOGY NURSE Work Phone: [facility] Start: 12-30-2023 End: 12-30-2023 Office outpatient visit 15 minutes Sonam Drake UROLOGY NURSE Work Phone: [facility] Comment on above: Type 2 diabetes cory itus with diabetic microalbuminuria, without long-term current use of insulin ([facility]) (Primary Dx); Essential hypertension; Other hyperlipidemia ([facility]); Snoring; Mixed urge and stress incontinence Start: 12-30-2023 End: 12-30-2023 ambulatory SONAM DRAKE Not Available Start: 12-17-2023 End: 12-17-2023 Refill Jolly Castaneda MA [facility] Comment on above: Migraine with aura a nd without status migrainosus, not intractable (CMS/[facility]); Diabetic polyneuropathy associated with type 2 diabetes mellitus ([facility]/HCC) Start: 12-17-2023 End: 12-18-2023 Refill Sonam Drake UROLOGY NURSE Work Phone: [facility] Comment on above: Gout, unspecified [...] 10-03-2023 End: 10-03-2023 Bamboo flowsheet Sonam Drake UROLOGY NURSE Work Phone: [facility] Start: 10-03-2023 End: 10-03-2023 Bamboo flowsheet Sonam Drake UROLOGY NURSE Work Phone: [facility] Start: 10-03-2023 End: 10-03-2023 ambulatory SONAM DRAKE Not Available Start: 10-03-2023 End: 10-03-2023 Office outpatient visit 25 minutes Sonam Valenciatrick UROLOGY NURSE Work Phone: [facility] Comment on [...] Start: 04-30-2023 End: 04-30-2023 Patient encounter procedure [facility] Work Phone: Start: 03-21-2023 Orders Only Shaikh Maricel HOLLIS Work Phone: [facility] Comment on above: Diabetic polyneuropa thy associated with type 2 diabetes mellitus (CMS/HCC) (Primary Dx) Start: 03-19-2023 End: 03-19-2023 ambulatory Ana Luisa Calvey Other [employer] Other Start: 03-19-2023 Office outpatient vi sit 15 minutes Ana Luisa Calvey [facility] Start: 01-23-2023 End: 01-23-2023 ambulatory Ana Luisa Calvey Other [employer] Other Start: 01-23-2023 Office outpatient vi sit 15 minutes Ana Luisa Calvey [facility] Start: 01-18-2023 End: 01-18-2023 ambulatory Elle Hendricks Other [employer] Other Start: 01-18-2023 Office outpatient vi sit 15 minutes Elle Ruthie [facility] Start: 09-19-2022 End: 09-19-2022 ambulatory Ana Luisajesus Curtis Other [employer] Other Start: 09-19-2022 Telephone encounter Ana Luisa Curtis [facility] Start: 07-12-[address] JONATHAN EDWARDS Facili ty:[facility] Start: 06-07-2022 End: 06-08-[address] JONATHAN EDWARDS Facility:[facility] Start: 05-02-2022 End: 05-02-2022 ambulatory Ana Luisa Kirsten Other [employer] Other Start: 05-02-2022 Office outpatient ne w 30 minutes Ana Luisa Calvey [facility] Start: 04-12-2022 End: 04-13-[address] JONATHAN EDWARDS Facility:[facility] Start: 03-08-2022 End: 03-09-[address] JONATHAN EDWARDS Facility:[facility] Start: 02-16-2022 End: 02-17-[address] JONATHAN EDWARDS Facility:[facility] Start: 02-09-2022 End: 02-10-[address] RICARDO HOLM . Facility:[facility] Start: 11-16-2021 End: 11-17-[address] JONATHAN EDWARDS Facility:[facility] Start: 11-01-2021 End: 11-02-2021 ambulatory CRYS PIERCE . Facility:[facility] Start: 08-30-2021 End: 08-31-2021 ambulatory RADHA BARCLAY [facility] Start: 08-30-2021 End: 08-30-2021 Subsequent hospital visit by physician Sr Edwards DO Work Phone: [facility] Comment on above: Routine cervical sme ar Start: 08-16-2021 Encounter for genera l adult medical examination without abnormal findings DR RICARDO HOLM . [facility] Start: 08-09-2021 End: 08-10-2021 Encounter [...] examinati on knee 3 views Ameena Vera UROLOGY NURSE Work Phone: Start: 05-21-2024 ALL CBC WITH AUTO DIFF Ameena Vear UROLOGY NURSE Work Phone: Start: 05-19-2024 Hemoglobin glycosyla anne a1c Ameena Vera UROLOGY NURSE Work Phone: Start: 03-30-2024 Hemoglobin glycosyla anne a1c Sonam Drake UROLOGY NURSE Work Phone: Start: 03-18-2024 MM TOMOSYNTHESIS SCR EENING BI Generic External Data Provider Start: 03-18-2024 Mammography Generic Pr ovider Start: 12-31-2023 ALL CBC WITH AUTO DIFF Sonam Drake UROLOGY NURSE Work Phone: Start: 03-20-2023 Mammography Shaikh Marie calero MD Work Phone: Start: 08-30-2021 Microscopic observat ion [Identifier] in Cervix by Cyto stain Sr House DO Work Phone: Plan of Treatment Date Care Activity Detail Author Start: 03-28-2026 Screening for malign ant neoplasm of colon [facility] Start: 03-08-2026 Screening for malign ant neoplasm of colon [facility] Start: 05-21-2025 Urine screening for protein Diabetes: Urine Protein Screening [facility] Start: 03-30-2025 End: 03-30-2025 Patient encounter procedure 03/30/2025 11:15 AM EST Office Visit [facility] [address] [place] [phone] Alicia Monroy MD [address] [place] [address] [facility] Start: 03-18-2025 Screening for malign ant neoplasm of breast Mammogram [facility] Start: 12-30-2024 Urine screening for protein Diabetes: Urine Protein Screening [facility] Start: 11-18-2024 Hemoglobin A1c measurement Diabetes: Hemoglobin A1C [facility] Start: 10-26-2024 End: 10-26-2024 Patient encounter procedure 10/26/2024 1:20 PM EDT Office Visit [facility] [address] [place] [address] Za Wilkerson NP [address] [place], [place] [facility] Start: 10-12-2024 Influenza vaccination Influenz a Vaccine (Season Ended) [facility] Start: 09-27-2024 Hemoglobin A1c measurement Diabetes: Hemoglobin A1C [facility] Start: 08-30-2024 Screening for malign ant neoplasm of cervix [facility] Start: 08-20-2024 End: 08-20-2024 Patient encounter procedure 08/20/2024 10:30 AM EDT Office Visit [facility] [address] [place] [address] Ameena Vera, RONALDO [address] [place] [address] [facility] Start: 07-26-2024 Urine screening for protein Diabetes: Urine Protein Screening [facility] Start: 07-03-2024 End: 06-03-2025 25-hydroxyvitamin D3 [Mass/volume] in Serum or Plasma Vitamin D 25 hydroxy Lab Routine Hypercalcemia Expected: 07/03/2024 (Approximate), Expires: 06/03/2025 [facility] Comment on above: Expected: 07/03/2024 (Approximate), Expires: 06/03/2025 Start: 07-03-2024 End: 06-03-2025 Basic metabolic 1998 panel - Serum or Plasma Basic metabolic panel Lab Routine Hypercalcemia Low serum parathyroid hormone (PTH) Expected: 07/03/2024 (Approximate), Expires: 06/03/2025 [facility] Comment on above: Expected: 07/03/2024 (Approximate), Expires: 06/03/2025 Start: 07-03-2024 End: 06-03-2025 Parathyrin.intact [Mass/volume] in Serum or Plasma PTH, intact Lab Routine Low serum parathyroid hormone (PTH) Expected: 07/03/2024 (Approximate), Expires: 06/03/2025 [facility] Work Phone: Comment on above: Expected: 07/03/2024 (Approximate), Expires: 06/03/2025 Start: 06-25-2024 End: 06-25-2024 Patient encounter procedure [facility] Start: 05-22-2024 End: 05-22-2025 Parathyrin.intact [Mass/volume] in Serum or Plasma PTH, intact Lab Routine Hypercalcemia Expected: 05/22/2024 (Approximate), Expires: 05/22/2025 [facility] Work Phone: Comment on above: Expected: 05/22/2024 (Approximate), Expires: 05/22/2025 Start: 05-19-2024 End: 05-19-2025 25-hydroxyvitamin D3 [Mass/volume] in Serum or Plasma Vitamin D 25 hydroxy Lab Routine Hypercalcemia Expected: 05/19/2024 (Approximate), Expires: 05/19/2025 [facility] Comment on above: Expected: 05/19/2024 (Approximate), Expires: 05/19/2025 Start: 05-19-2024 End: 05-19-2025 CBC W Auto Differential panel - Blood CBC and differential Lab Routine JANETT (obstructive sleep apnea) Cigarette nicotine dependence without complication Expected: 05/19/2024 (Approximate), Expires: 05/19/2025 [facility] Comment on above: Expected: 05/19/2024 (Approximate), Expires: 05/19/2025 Start: 05-19-2024 End: 05-19-2025 Comprehensive metabolic 2000 panel - Serum or Plasma Comprehensive metabolic panel Lab Routine Other hyperlipidemia Bilateral lower extremity edema Type 2 diabetes mellitus with diabetic microalbuminuria, without long-term current use of insulin (CMS/HCC) Hypercalcemia Essential hypertension Expected: 05/19/2024 (Approximate), Expires: 05/19/2025 [facility] Comment on above: Expected: 05/19/2024 (Approximate), Expires: 05/19/2025 Start: 05-19-2024 End: 05-19-2025 Lipid 1996 panel - Serum or Plasma Lipid panel Lab Routine Other hyperlipidemia Expected: 05/19/2024 (Approximate), Expires: 05/19/2025 [facility] Work Phone: Comment on above: Expected: 05/19/2024 (Approximate), Expires: 05/19/2025 Start: 05-19-2024 End: 05-19-2025 Microalbumin/Creatinine panel in random Urine Microalbumin / creatinine, urine ratio Lab Routine Type 2 diabetes mellitus with diabetic microalbuminuria, without long-term current use of insulin (CMS/HCC) Essential hypertension Expected: 05/19/2024 (Approximate), Expires: 05/19/2025 [facility] Comment on above: Expected: 05/19/2024 (Approximate), Expires: 05/19/2025 Start: 05-19-2024 End: 05-19-2025 Parathyrin.intact [Mass/volume] in Serum or Plasma PTH, intact Lab Routine Hypercalcemia Expected: 05/19/2024 (Approximate), Expires: 05/19/2025 [facility] Comment on above: Expected: 05/19/2024 (Approximate), Expires: 05/19/2025 Start: 05-19-2024 End: 05-19-2025 Urate [Mass/volume] in Serum or Plasma Uric acid Lab Routine Elevated blood uric acid level Expected: 05/19/2024 (Approximate), Expires: 05/19/2025 [facility] Comment on above: Expected: 05/19/2024 (Approximate), Expires: 05/19/2025 Start: 05-19-2024 End: 05-19-2025 Urinalysis complete panel - Urine Urinalysis with reflex microscopic (clean catch) Lab Routine Type 2 diabetes mellitus with diabetic microalbuminuria, without long-term current use of insulin ([facility]) Cigarette nicotine dependence without complication Essential hypertension Elevated blood uric acid level Expected: 05/19/2024 (Approximate), Expires: 05/19/2025 [facility] Comment on above: Expected: 05/19/2024 (Approximate), Expires: 05/19/2025 Start: 05-19-2024 End: 05-19-2025 XR Knee - right 3 Views XR knee 3 views right Imaging Routine Acute pain of right knee Expected: 05/19/2024 (Approximate), Expires: 05/19/2025 [facility] Comment on above: Expected: 05/19/2024 (Approximate), Expires: 05/19/2025 Start: 05-19-2024 End: 05-19-2024 Patient encounter procedure 05/19/2024 11:00 AM EDT Office Visit [facility] [address] [place] [address] Ameena Vera NP [address] [place] [address] [facility] Start: 04-21-2024 End: 04-21-2024 Patient encounter procedure 04/21/2024 1:00 PM EDT Office Visit [facility] [address] [place] [phone] Za Wilkerson NP [address] [place] [address] [facility] Start: 03-30-2024 End: 03-30-2024 Patient encounter procedure 03/30/2024 11:05 AM EST Office Visit [facility] [address] [place] [address] Alicia Monroy MD [address] [place], [place] [phone] [facility] Start: 03-26-2024 End: 03-26-2024 Patient encounter procedure 03/26/2024 2:00 PM EST Office Visit [facility] [address] [place] [address] Sonam Drake NP [address] [place] [address] [facility] Start: 03-24-2024 End: 03-24-2024 Patient encounter procedure [facility] Start: 03-20-2024 Screening for malign ant neoplasm of breast Mammogram [facility] Start: 02-27-2024 End: 02-27-2024 Patient encounter procedure 02/27/2024 11:35 AM EST Office Visit [facility] [address] [place] [address] Alicia Monroy MD [address] [place], [place] [phone] [facility] Start: 02-25-2024 End: 02-25-2024 Patient encounter procedure 02/25/2024 3:30 PM EST Office Visit [facility] [address] [place] [phone] Sonam Drake, RONALDO [address] [place] [phone] [facility] Start: 02-21-2024 Medicare Annual Well ness (AWV) Medicare Annual Wellness (AWV) [facility] Start: 02-12-2024 Glaucoma screening Diabetes: R etinopathy Screening [facility] Start: 01-25-2024 Hemoglobin A1c measurement Diabetes: Hemoglobin A1C [facility] Start: 12-31-2023 End: 12-30-2024 Polysomnography [facility] Routine JANETT (obstructive sleep apnea) Expected: 12/31/2023 (Approximate), Expires: 12/30/2024 [facility] Work Phone: Comment on above: Expected: 12/31/2023 (Approximate), Expires: 12/30/2024 Start: 12-31-2023 End: 12-31-2023 Patient encounter procedure 12/31/2023 10:00 AM EST Office Visit [facility] [address] [place] [phone] Sivan Villegas DO [address] [place], [place] [phone] [facility] Start: 12-30-2023 End: 12-29-2024 CBC W Auto Differential panel - Blood CBC and differential Lab Routine Type 2 diabetes mellitus with diabetic microalbuminuria, without long-term current use of insulin ([facility]) Essential hypertension Expected: 12/30/2023 (Approximate), Expires: 12/29/2024 [facility] Comment on above: Expected: 12/30/2023 (Approximate), Expires: 12/29/2024 Start: 12-30-2023 End: 12-29-2024 Comprehensive metabolic 2000 panel - Serum or Plasma Comprehensive metabolic panel Lab Routine Type 2 diabetes mellitus with diabetic microalbuminuria, without long-term current use of insulin ([facility]) Essential hypertension Expected: 12/30/2023 (Approximate), Expires: 12/29/2024 [facility] Comment on above: Expected: 12/30/2023 (Approximate), Expires: 12/29/2024 Start: 12-30-2023 End: 12-29-2024 Hemoglobin A1c/Hemoglobin.total in Blood Hemoglobin A1c Lab Routine Type 2 diabetes mellitus with diabetic microalbuminuria, without long-term current use of insulin ([facility]) Expected: 12/30/2023 (Approximate), Expires: 12/29/2024 [facility] Comment on above: Expected: 12/30/2023 (Approximate), Expires: 12/29/2024 Start: 12-30-2023 End: 12-30-2023 Patient encounter procedure 12/30/2023 10:30 AM EST Office Visit [facility] [address] [place] [phone] Sonam Drake, RONALDO [address] [place] [phone] [facility] Start: 11-04-2023 End: 11-04-2023 Patient encounter procedure 11/04/2023 2:30 PM EDT Office Visit [facility] [address] [facility] [place] [address] Sivan Villegas DO [address] [place] [address] [facility] Start: 10-13-2023 Influenza vaccination Influenza Vacc ine (#1) [facility] Start: 08-11-2023 Influenza vaccination Influenza Vacc ine (#1) [facility] Comment on above: Postponed from 10/12 (Patient Refused) Start: 05-02-2023 End: 05-02-2023 Patient encounter procedure 05/02/2023 2:00 PM EDT Office Visit [facility] [address] [place] [address] Shaikh Connelly MD [address] [facility] [place] [address] [facility] Start: 02-17-2023 Hemoglobin A1c measurement Diabetes: Hemoglobin A1C [facility] [facility] Start: 09-04-2022 End: 09-04-2022 Patient encounter procedure 09/04/2022 Office Visit Obstetrics and Gynecology Radha Barclay, [employer] DIRECTOR - CNM [address] [place] [address] [facility] Start: 10-12-2021 Influenza vaccination Flu vaccine (# 1) [facility] Start: 10-21-2013 Screening for malign ant neoplasm of breast Breast cancer screen [facility] Start: 10-21-2013 Shingles vaccine (1 of 2) [place] gles vaccine (1 of 2) [facility] Start: 10-21-2008 Screening for malign ant neoplasm of colon [facility] Start: 2003 Lipid panel Lipids [facility] Start: 10-21-1998 Diabetes screen Diabetes screen [facility] Start: 10-21-1993 Screening for malign ant neoplasm of cervix [facility] Start: 10-21-1982 DTaP/Tdap/Td vaccine (1 - Tdap) DTaP/Tdap/Td vaccine (1 - Tdap) [facility] Start: 10-21-1982 Urine screening for protein Diabetes: Urine Protein Screening [facility] Start: 10-21-1981 Hepatitis C screening Hepatitis C sc reen [facility] Start: 10-21-1978 HIV screening HIV screen [facility] Start: 1975 Depression Screen Depression Screen [facility] Start: 04-20-1964 COVID-19 Vaccine (#1) COVID-19 Vacci ne (#1) [facility] Start: 1963 Screening for malign ant neoplasm of colon [facility] End: 08-30-2021 Cytopathology procedure, preparation of smear, genital source PAP SMEAR Lab Routine Routine cervical smear 1 Occurrences starting 08/30/2021 until 08/30/2021 [facility] Work Phone: Comment on above: 1 Occurrences starti ng 08/30/2021 until 08/30/2021 Microalbumin/Creatin ine panel in random Urine Microalbumin / creatinine urine ratio Lab Routine Type 2 diabetes mellitus with diabetic microalbuminuria, without long-term current use of insulin ([facility]) Essential hypertension Ordered: 12/30/2023 [facility] Work Phone: Comment on above: Ordered: 12/30/2023 Immunizations Immunization Date Immunization Notes Care Provider Tima garcia 01-14-2017 influenza, injectabl e, quadrivalent, preservative [facility] 01-14-2017 influenza virus vaccine, unspecified formulation Sonam Drake UROLOGY NURSE Work Phone: [facility] Payers Date Payer Category Payer Self-pay [id number] 2022 Private Health Insurance [id number] 2022 Unknown [id number] 2012 Medicare [id number] [id number] 1963 Unknown [id number] 2.16.8 40.1.633486.3.579.2.173 1963 Unknown [id number] 2.16.84 0.1.431026.3.579.2.593 1963 Unknown [id number] 2.16.84 0.1.823338.3.579.2.593 1963 Unknown [id number] 2.16.84 0.1.256845.3.579.2.593 1963 Unknown [id number] 2.16.84 0.1.200728.3.579.2.593 1963 Unknown [id number] 2.16.84 0.1.714086.3.579.2.593 1963 Unknown [id number] 2.16.84 0.1.539847.3.579.2.593 1963 Unknown [id number] 2.16.84 0.1.734971.3.579.2.593 1963 Unknown [id number] 2.16.84 0.1.936716.3.579.2.593 1963 Unknown [id number] 2.16.84 0.1.174102.3.579.2.593 1963 Unknown [id number] 2.16.84 0.1.373560.3.579.2.593 1963 Unknown [id number] 2.16.84 0.1.536024.3.579.2.593 1963 Unknown [id number] 2.16.84 0.1.758175.3.579.2.593 1963 Unknown [id number] 2.16.84 0.1.909412.3.579.2.593 1963 Unknown [id number] 2.16.84 0.1.959488.3.579.2.593 1963 Unknown [id number] 2.16.84 0.1.542595.3.579.2.593 1963 Unknown [id number] 2.16.84 0.1.992521.3.579.2.593 1963 Unknown [id number] 2.16.84 0.1.588759.3.579.2.1259 1963 Unknown [id number] 2.16.84 0.1.217870.3.579.2.1259 1963 Unknown [id number] 2.16.84 0.1.220065.3.579.2.1259 1963 Unknown [id number] 2.16.84 0.1.672484.3.579.2.1258 1963 Unknown [id number] 2.16.84 0.1.991832.3.579.2.1258 1963 Unknown [id number] 2.16.84 0.1.333858.3.579.2.1258 1963 Unknown [id number] 2.16.84 0.1.974219.3.579.2.1258 1963 Unknown [id number] 2.16.84 0.1.064934.3.579.2.1258 1963 Unknown [id number] 2.16.84 0.1.410108.3.579.2.1258 1963 Unknown [id number] 2.16.84 0.1.729259.3.579.2.1258 1963 Unknown [id number] 2.16.84 0.1.683199.3.579.2.9 1959 Medicare [id number] 1.2.840.710976.1.13.239.2.7.3.046391.315 1959 Unknown [id number] 1.2.840.854194.1.13.239.2.7.3.900615.315 1959 Unknown [id number] 2.16.8 40.1.727259.19 Medicare Medicare [id number] Unknown [id number] 2.16.8 40.1.471065.3.579.2.531 Social History Date Type Detail Facility Start: 08-30-2021 End: 04-21-2024 Tobacco smoking status NJIS Smokes tobacco daily [facility] [employer] Phone: History of tobacco use Cigarette Smoker [facility] [employer] Phone: Start: 08-30-2021 End: 04-21-2024 Tobacco use and exposure Smokeless tobacco non-user [facility] Work Phone: Start: 08-30-2021 Alcohol intake Current drinke r of alcohol (finding) [employer] Phone: Start: 08-30-2021 History SDOH Alcohol Comment occasional [employer] Phone: Start: 1965 Sex Assigned At Not on file [facility] [employer] Phone: Start: 08-20-2021 End: 08-30-2021 Exposure to SARS-CoV-2 (event) Not sure [employer] Start: 02-25-2023 End: 10-02-2023 Sex Assigned At [facility] Start: 01-29-2023 End: 05-20-2024 Tobacco smoking status NHIS Ex-smoker [facility] History of tobacco use Current smoker [facility] Start: 01-29-2023 End: 10-02-2023 Cigarettes smoked current (pack per day) - Reported 0.5 [facility] Start: 02-25-2023 End: 05-19-2024 Alcohol intake Lifetime non-drinker (finding) [facility] Start: 1965 Sex Assigned At Female F [facility] History of tobacco use Passive smoker [facility] [...] days [OSQ] To some extent [facility] Start: 05-29-2024 Sex Female (finding) [facility] Medical Equipment Procedure Code Equipment Code Equipment Origin al Text Equipment Identifier Dates [id number] Start: 06-08-2021 End: 04-21-2024 Clinical Notes 06-20-2021 to 05-28-2024 Note Date & Type Note Facility 05-28-2024 Evaluation note Diagnosis Onset Date Resolution Primary osteoarthritis of right knee acute May 28, 2024 12:55pm [facility] Work Phone: [phone]) 556-215904-11-2025 History of Present illness Narrative* Ameena Vera NP - 05/22/2024 7:25 AM EDT par documented in this encounterSaint Mary's Health CenterGevhuezddo58-36-1387 History of Present illness Narrative* Ameena Vera [...] orthopedic surgeon in the past back in [place] for that knee however she does not remember who. Fast sugars average 113 * Ameena Vera, RONALDO - 05/19/2024 11:00 AM EDT Images from [...] orthopedic surgeon in the past back in [place] for that knee however she does not [...] MORE THAN 3 TABLETS DAILY Continuous Glucose Residential Mortgage Manager (Dexcom G7 Residential Mortgage Manager) device 1 each, Does not apply, [...] microalbuminuria, without long-term current use of insulin ([facility]) Check blood sugars daily, notify [...] aura and without status migrainosus, not intractable ([facility]) Current meds: maxalt, depakote Other [...] of the risks of continued smoking: stroke, TN, all forms of cancer, lung disease, and [...] of the risks of continued smoking: stroke, TN, all forms of cancer, lung disease, and [...] aura and without status migrainosus, not intractable ([facility]/HCC) Current meds: maxalt, depakote * Ameena Vera NP - 05/19/2024 6:51 AM EDTAssociated Problem(s): Type 2 diabetes mellitus with diabetic microalbuminuria, without long-term current use of insulin ([facility]) Check blood sugars daily, notify [...] that supplies your machine and tubing/filters etc: [facility] Doctor that manages your JANETT: Dr Villegas documented in this [facility]04-08-2025 Instructions* Patient Instructions* Ameena Vera NP - 05/19/2024 11:00 AM EDT Fasting labs Get xray knee Referral to Dr Darren Orona documented in this [facility]02-17-2025 Telephone encounter Note* Telephone Encounter - Jolly Castaneda MA - 03/30/2024 11:44 AM EST Pt's sensor fell off, and she needs them refilled please [facility] [id number] Miscellaneous Notes* Telephone Encounter - Jolly Castaneda MA - 03/30/2024 11:44 AM EST Pt's sensor fell off, and she needs them refilled please documented in this encounterSaint Mary's Health CenterTsyvvzddkq54-71-4957 History of Present illness Narrative* Alicia Monroy [...] Examined Right arm Examined Patient wearing nail tamazight, Denies dark streaks under finger nails, Denies [...] 1 year skin check documented in this encounterSaint Mary's Health CenterCzndxqcuip67-30-6726 History of Present illness Narrative* Sonam Drake [...] microalbuminuria, without long-term current use of insulin ([facility]) Currently taking Metformin Bid and Ozempic 1mg. [...] microalbuminuria, without long-term current use of insulin ([facility]) - Primary Currently taking Metformin [...] (Hb A1C) docked device (Completed) Other hyperlipidemia (CMS/[facility]) Crestor 20mg Denies myalgias Continue [...] complication, without long-term current use of insulin ([facility]) documented in this encounterSaint Mary's Health CenterUeozjgryqh64-73-1088 Instructions* Patient Instructions* Sonam Drake NP - [...] carbohydrates, and simple sugars. documented in this encounterSaint Mary's Health CenterAxklhigtgv57-43-7539 History of Present illness Narrative* Sonam Drake [...] microalbuminuria, without long-term current use of insulin ([facility]) Relevant Medications metFORMIN (Glucophage) 500 MG tablet Continuous Glucose Residential Mortgage Manager (Dexcom G7 Residential Mortgage Manager) device Continuous Glucose Sensor (Dexcom G7 [...] aura and without status migrainosus, not intractable ([facility]) Relevant Medications divalproex (Depakote) 500 MG EC tablet Other hyperlipidemia (CMS/HCC) Relevant Medications rosuvastatin (Crestor) 20 MG tablet Lumbar back pain Relevant Medications diclofenac (Voltaren) 75 MG EC tablet Other Visit Diagnoses Diabetic polyneuropathy associated with type 2 diabetes mellitus (CMS/HCC) Relevant Medications pregabalin (Lyrica) 75 MG capsule documented in this [facility]01-21-2025 Instructions* Patient Instructions* Sonam Drake NP - [...] 1500 calories per day. documented in this [facility]12-19-2024 Telephone encounter Note* Telephone Encounter - Jolly Castaneda MA - 01/30/2024 10:38 AM EST GIOVANNA:12/30/2023 NOV:03/26/2024 [facility] [id number] Miscellaneous Notes* Telephone Encounter - Jolly Castaneda MA - 01/30/2024 10:38 AM EST GIOVANNA:12/30/2023 NOV:03/26/2024 documented in this [facility]12-03-2024 Telephone encounter Note* Telephone Encounter - Jolly Castaneda MA - 01/14/2024 8:34 AM EST GIOVANNA:12/30/2023 NOV:03/26/2023 [facility] [id number] Miscellaneous Notes* Telephone Encounter - Jolly Castaneda MA - 01/14/2024 8:34 AM EST GIOVANNA:12/30/2023 NOV:03/26/2023 documented in this [facility]11-19-2024 History of Present illness Narrative* Sivan Villegas DO - 12/31/2023 10:00 AM EST Images from the original note were not included. No chief complaint on file. Subjective SLEEP CONSULT REFERRAL: Snoring, concern for JANETT, needing sleep study - labs @ [facility]; referral received from Sonam Drake CNP. [...] was counseled on the risks of stroke, TN, and sudden with JANETT, along with the [...] to clinic: 2 months documented in this encounterSaint Mary's Health CenterXxnckgwoqx94-60-6763 History of Present illness Narrative* Sonam Drake [...] JANETT. First appointment tomorrow. documented in this encounterSaint Mary's Health CenterMbcoxgvjcj83-46-2618 Instructions* Patient Instructions* Sonam Drake NP - 12/30/2023 10:30 AM EST FASTING labs ordered. Nothing to eat or drink for 12 hours prior to blood draw. Water and black coffee ok. Call if you need anything! documented in this encounterSaint Mary's Health CenterRjhvvwvmqh52-13-1741 Telephone encounter Note* Telephone Encounter - Jolly Castaneda MA - 12/17/2023 3:39 PM EST GIOVANNA:10/03/2023 NOV:12/30/2023 [facility] [id number] Miscellaneous Notes* Telephone Encounter - Jolly Castaneda MA - 12/17/2023 3:39 PM EST GIOVANNA:10/03/2023 NOV:12/30/2023 documented in this encounterSaint Mary's Health CenterFlozexwriq47-39-5381 History of Present illness Narrative* Sonam Drake NP - 10/03/2023 10:57 AM EDTAssociated Problem(s): Snoring Screening for JANETT- Referral sent to [facility] * Sonam Drake NP - 10/03/2023 10:35 [...] microalbuminuria, without long-term current use of insulin ([facility]) Metformin Bid and Ozempic Most [...] ALBUMIN GLOBULIN RATIO 0.8 Resulting Agency H [facility] DMII: Metformin Bid and Ozempic Most [...] microalbuminuria, without long-term current use of insulin ([facility]) Metformin Bid and Ozempic Most [...] MG/DOSE,) 4 MG/3ML solution pen-injector Other hyperlipidemia ([facility]) Crestor 20mg; Lipid panel looks good Denies [...] Ambulatory referral to Urology Snoring Screening for AJNETT- Referral sent to [facility] Other Visit Diagnoses Type 2 diabetes mellitus without complication, without long-term current use of insulin ([facility]) Relevant Medications semaglutide (Ozempic, 1 MG/DOSE,) 4 MG/3ML solution pen-injector Diabetic polyneuropathy associated with type 2 diabetes mellitus (CMS/HCC) Relevant Medications pregabalin (Lyrica) 75 MG capsule documented in this encounterSaint Mary's Health CenterDtbnsgjegi45-94-6593 Instructions* Patient Instructions* Sonam Drake NP - [...] day. Consider tracking your food intake on [employer] or [employer] Water: Increase water intake; GOAL [...] if you need anything! documented in this [facility]02-06-2024 Evaluation note* Encounter Date Diagnosis Assessment Notes [...] Left hand pain (ICD- 10 - M79.642) [employer] Other 12-13-2023 Evaluation note* Encounter Date Diagnosis [...] noted. Patient will f/u in 4 weeks. [employer] Other 12-08-2023 Evaluation note* Encounter Date Diagnosis [...] left hand x-ray that was performed at [facility] which revealed degenerative changes in the hand as well as a remote avulsion fracture of the thumb. Patient states her family doctor is treating her for gout in her hand. Jan, History of gout (ICD-10 - Z87.39) Jan, Other Gout material w as printed [employer] Other 08-09-2023 Evaluation note* Encounter Date Diagnosis Assessment Notes Treatment Notes Treatment Clinical Notes Sep, Right wrist pain (ICD-10 - M25.531) [employer] Other 04-27-2023 NoteCONSULTATION CONSULTATION DATE: 06/07/2022 TO: [...] our patients to inform us about any ylkb-jud-qxmwjkh medications or herbal remedies/nutritional supplements/alternative remedies. 2. [...] treatment options with their primary care provider.[facility] HospitalUoonchgw43-10-9417 Evaluation note * Encounter Date Diagnosis Assessment [...] understanding and is agreeable to treatment plan. [employer] Other 01-26-2023 NoteCONSULTATION PROCEDURE DATE: 03/08/2022 PREOPERATIVE [...] will be followed up in the clinic.[facility] HospitalRhxvzgkb18-27-9025 NotePROCEDURE: XR KNEE LT 4V or > [...] Electronically authenticated by: PATTIE CORTES Date: 2022-02-16 11:29[facility]12-30-2022 NoteCONSULTATION CONSULTATION DATE: 02/09/2022 HISTORY OF [...] office today. Patient agrees with this plan.[facility] HospitalCvyeqkzn26-06-5713 NotePROCEDURE: XR WRIST RT MIN 3 V COMPARISON: None. HISTORY: Injury of right wrist FINDINGS: BONES:No acute fracture or dislocation. Corticated bone fragment identified along the first carpometacarpal joint [degenerative in nature SOFT TISSUES:Moderate diffuse soft tissue swelling EFFUSION:None visible. OTHER: Negative. IMPRESSION: Soft tissue swelling, no acute fracture Electronically authenticated by: RYAN GOLDMAN Date: 2021-11-16 18:59[facility] HospitalFywsvvbc35-91-2071 NoteCONSULTATION CONSULTATION DATE: 11/01/2021 HISTORY OF PRESENT [...] otherwise indicated. Patient agrees with this plan.[facility] HospitalOeqregnt79-29-0932 NoteCONSULTATION PROCEDURE DATE: 11/01/2021 PRE AND POSTOPERATIVE [...] will be followed up in the clinic.[facility] HospitalYcjkmqie52-27-9228 NoteCONSULTATION PROCEDURE DATE: 08/09/2021 PREOPERATIVE DIAGNOSIS: Bilateral [...] will be followed up in the clinic. [facility] Signed and Approved by: CRYS PIERCE . 08/10/2021 13:37:00[facility] HospitalOctzkoww50-63-3332 NoteCONSULTATION CONSULTATION DATE: 07/19/2021 HISTORY OF PRESENT [...] injections. Patient acknowledges and all questions answered. [facility] Signed and Approved by: CRYS PIERCE . 07/20/2021 10:33:00[facility]05-25-2022 NotePROCEDURE: XR FOOT RT MIN 3 [...] Electronically authenticated by: PATTIE CORTES Date: 2021-07-05 11:11[facility]05-10-2022 NoteCONSULTATION CONSULTATION DATE: 06/20/2021 CHIEF COMPLAINT: [...] like to proceed. CC: Jonathan Edwards M.D. [facility] Signed and Approved by: DR RICARDO HOLM . 06/27/2021 10:40:00[facility] HospitalEvaluation [facility]* Diagnosis Routine cervical smear Screening for malignant neoplasm of the cervix documented in this encounter [facility] Work Phone: evaluation note* Diagnosis Diabetic polyneuropathy associated with type 2 diabetes mellitus (CMS/HCC)- Primary documented in this encounter [facility] CenterEvaluation noteNo assessment information availableProtestant Deaconess [facility] Work Phone: Evaluation note* Diagnosis Encounter [...] unspecified osteoporosis type, unspecified pathological fracture presence ([facility]) Diabetic polyneuropathy associated with type 2 diabetes mellitus ([facility]/HCC) Gastroesophageal reflux disease without esophagitis Esophageal reflux Migraine with aura and without status migrainosus, not intractable ([facility]) Hospital discharge follow-up Other follow-up examination Type 2 diabetes mellitus with diabetic microalbuminuria, without long-term current use of insulin ([facility])- Primary Other hyperlipidemia ([facility]/HCC) Essential hypertension Unspecified essential hypertension Bilateral lower extremity edema Lumbar back pain- Primary Lumbago Hospital discharge follow-up Other follow-up examination Essential hypertension- Primary Unspecified essential hypertension Type 2 diabetes mellitus with diabetic microalbuminuria, without long-term current use of insulin ([facility]) Morbid (severe) obesity due to excess calories (E66.01) Other hyperlipidemia ([facility]) Lumbar back pain Lumbago Type 2 diabetes mellitus without complication, without long-term current use of insulin ([facility]) Diabetic polyneuropathy associated with type 2 diabetes mellitus ([facility]) Mixed urge and stress incontinence Mixed incontinence urge and stress (male)(female) Snoring Other dyspnea and respiratory abnormality Encounter for long-term (current) use of high-risk medication Encounter for long-term (current) use of other medications Type 2 diabetes mellitus with diabetic microalbuminuria, without long-term current use of insulin ([facility])- Primary Essential hypertension Unspecified essential hypertension Other hyperlipidemia ([facility]) Snoring Other dyspnea and respiratory [...] complication, without long-term current use of insulin ([facility]) Upper respiratory tract infection, unspecified type URTI (acute upper respiratory infection) Acute upper respiratory infections of unspecified site Migraine with aura and without status migrainosus, not intractable ([facility])- Primary Type 2 diabetes mellitus [...] with routine healing, subsequent encounter Other hyperlipidemia (CMS/[facility]) Hyperuricemia Other abnormal blood chemistry Osteoporosis, unspecified osteoporosis type, unspecified pathological fracture presence ([facility]) Diabetic polyneuropathy associated with type 2 diabetes mellitus (CMS/HCC) Gastroesophageal reflux disease without esophagitis Esophageal reflux Migraine with aura and without status migrainosus, not intractable ([facility]) Hospital discharge follow-up Other follow-up examination Type 2 diabetes mellitus with diabetic microalbuminuria, without long-term current use of insulin ([facility])- Primary Other hyperlipidemia (CMS/HCC) Essential hypertension Unspecified essential hypertension Bilateral lower extremity edema Lumbar back pain- Primary Lumbago Hospital discharge follow-up Other follow-up examination Essential hypertension- Primary Unspecified essential hypertension Type 2 diabetes mellitus with diabetic microalbuminuria, without long-term current use of insulin ([facility]/HCC) Morbid (severe) obesity due to excess calories (E66.01) Other hyperlipidemia (CMS/HCC) Lumbar back pain Lumbago Type 2 diabetes mellitus without complication, without long-term current use of insulin ([facility]) Diabetic polyneuropathy associated with type 2 diabetes mellitus ([facility]) Mixed urge and stress incontinence Mixed incontinence urge and stress (male)(female) Snoring Other dyspnea and respiratory abnormality Encounter for long-term (current) use of high-risk medication Encounter for long-term (current) use of other medications Type 2 diabetes mellitus with diabetic microalbuminuria, without long-term current use of insulin ([facility])- Primary Essential hypertension Unspecified essential hypertension Other hyperlipidemia (CMS/HCC) Snoring Other dyspnea and respiratory abnormality Mixed urge and stress incontinence Mixed incontinence urge and stress (male)(female) documented in this encounter [facility] HealthcareEvaluation note* Diagnosis Encounter for [...] with routine healing, subsequent encounter Other hyperlipidemia (CMS/[facility]) Hyperuricemia Other abnormal blood chemistry Osteoporosis, unspecified osteoporosis type, unspecified pathological fracture presence (CMS/[facility]) Diabetic polyneuropathy associated with type 2 diabetes mellitus (CMS/HCC) Gastroesophageal reflux disease without esophagitis Esophageal reflux Migraine with aura and without status migrainosus, not intractable (CMS/[facility]) Hospital discharge follow-up Other follow-up [...] complication, without long-term current use of insulin ([facility] [facility] Diabetic polyneuropathy associated with type 2 diabetes mellitus ([facility]/HCC) Mixed urge and stress incontinence Mixed incontinence [...] complication, without long-term current use of insulin (CMS/[facility]) Diabetic polyneuropathy associated with type 2 diabetes mellitus (CMS/HCC) Mixed urge and stress incontinence Mixed incontinence urge and stress (male)(female) Snoring Other dyspnea and respiratory abnormality documented [facility] Diagnosis Gout, unspecified cause, unspecified chronicity, unspecified site documented in this encounter [facility]* Diagnosis Diabetic polyneuropathy associated with type 2 diabetes mellitus ([facility]/HCC) documented [facility]* Diagnosis Encounter for screening mammogram for breast cancer- Primary Encounter for screening for malignant neoplasm of colon Type 2 diabetes mellitus without complication, without long-term current use of insulin ([facility]) Upper respiratory tract infection, unspecified type URTI (acute upper respiratory infection) Acute upper respiratory infections of unspecified site Migraine with aura and without status migrainosus, not intractable ([facility])- Primary Type 2 diabetes mellitus without complication, without long-term current use of insulin ([facility]/HCC) Morbid (severe) obesity due to excess [...] with routine healing, subsequent encounter Other hyperlipidemia (CMS/[facility]) Hyperuricemia Other abnormal blood chemistry [...] microalbuminuria, without long-term current use of insulin ([facility]/HCC) documented in this encounter [facility] [...] with routine healing, subsequent encounter Other hyperlipidemia ([facility]) Hyperuricemia Other abnormal blood chemistry Osteoporosis, unspecified osteoporosis type, unspecified pathological fracture presence (CMS/HCC) Diabetic polyneuropathy associated with type 2 diabetes mellitus (CMS/HCC) Gastroesophageal reflux disease without esophagitis Esophageal reflux Migraine with aura and without status migrainosus, not intractable (CMS/[facility]) Hospital discharge follow-up Other follow-up [...] complication, without long-term current use of insulin ([facility]/HCC) Diabetic polyneuropathy associated with type 2 diabetes mellitus (CMS/HCC) Mixed urge and stress incontinence Mixed incontinence urge and stress (male)(female) Snoring Other dyspnea and respiratory abnormality Encounter for long-term (current) use of high-risk medication Encounter for long-term (current) use of other medications Type 2 diabetes mellitus with diabetic microalbuminuria, without long-term current use of insulin ([facility]/HCC)- Primary Essential hypertension Unspecified essential hypertension Other hyperlipidemia (CMS/HCC) Snoring Other dyspnea and respiratory abnormality Mixed urge and stress incontinence Mixed incontinence urge and stress (male)(female) Upper respiratory infection with cough and congestion- Primary Lumbar back pain Lumbago Migraine with aura and without status migrainosus, not intractable (CMS/HCC) Type 2 diabetes mellitus with diabetic microalbuminuria, without long-term current use of insulin ([facility]) Diabetic polyneuropathy associated with type [...] fracture presence (CMS/HCC) [facility] [...] 2 diabetes mellitus (CMS/HCC) Other hyperlipidemia (CMS/HCC) Gastroesophageal reflux disease without esophagitis Esophageal reflux documented in this encounter [facility] [...] with routine healing, subsequent encounter Other hyperlipidemia ([facility]/HCC) Hyperuricemia Other abnormal blood chemistry Osteoporosis, unspecified osteoporosis type, unspecified pathological fracture presence (CMS/[facility]) Diabetic polyneuropathy associated with type 2 diabetes mellitus (CMS/HCC) Gastroesophageal reflux disease without esophagitis Esophageal reflux Migraine with aura and without status migrainosus, not intractable ([facility]) Hospital discharge follow-up Other follow-up examination Type 2 diabetes mellitus with diabetic microalbuminuria, without long-term current use of insulin ([facility]/HCC)- Primary Other hyperlipidemia (CMS/HCC) Essential hypertension Unspecified essential hypertension Bilateral lower extremity edema Lumbar back pain- Primary Lumbago Hospital discharge follow-up Other follow-up examination Essential hypertension- Primary Unspecified essential hypertension Type 2 diabetes mellitus with diabetic microalbuminuria, without long-term current use of insulin ([facility]) Morbid (severe) obesity due to excess calories (E66.01) Other hyperlipidemia (CMS/HCC) Lumbar back pain Lumbago Type 2 diabetes mellitus without complication, without long-term current use of insulin ([facility]) Diabetic polyneuropathy associated with type 2 diabetes mellitus ([facility]/HCC) Mixed urge and stress incontinence Mixed incontinence urge and stress (male)(female) Snoring Other dyspnea and respiratory abnormality Encounter for long-term (current) use of high-risk medication Encounter for long-term (current) use of other medications Type 2 diabetes mellitus with diabetic microalbuminuria, without long-term current use of insulin ([facility]/HCC)- Primary Essential hypertension Unspecified essential hypertension Other hyperlipidemia (CMS/HCC) Snoring Other dyspnea and respiratory abnormality Mixed urge and stress incontinence Mixed incontinence urge and stress (male)(female) Upper respiratory infection with cough and congestion- Primary Lumbar back pain Lumbago Migraine with aura and without status migrainosus, not intractable ([facility]) Type 2 diabetes mellitus with diabetic microalbuminuria, without long-term current use of insulin ([facility]) Diabetic polyneuropathy associated with type [...] complication, without long-term current use of insulin ([facility]/HCC) Back spasm Other symptoms referable to back Closed fracture of proximal end of left fibula with routine healing, unspecified fracture morphology, subsequent encounter Closed nondisplaced fracture of second metatarsal bone of left foot with routine healing, subsequent encounter Other hyperlipidemia ([facility]) Hyperuricemia Other abnormal blood chemistry Osteoporosis, unspecified osteoporosis type, unspecified pathological fracture presence (CMS/[facility]) Diabetic polyneuropathy associated with type 2 diabetes mellitus (CMS/HCC) Gastroesophageal reflux disease without esophagitis Esophageal reflux Migraine with aura and without status migrainosus, not intractable ([facility]) Hospital discharge follow-up Other follow-up [...] complication, without long-term current use of insulin ([facility]) Diabetic polyneuropathy associated with type 2 diabetes mellitus (CMS/HCC) Mixed urge and stress incontinence Mixed incontinence urge and stress (male)(female) Snoring Other dyspnea and respiratory abnormality Encounter for long-term (current) use of high-risk medication Encounter for long-term (current) use of other medications Type 2 diabetes mellitus with diabetic microalbuminuria, without long-term current use of insulin ([facility]/HCC)- Primary Essential hypertension Unspecified essential hypertension Other hyperlipidemia (CMS/HCC) Snoring Other dyspnea and respiratory abnormality Mixed urge and stress incontinence Mixed incontinence urge and stress (male)(female) Upper respiratory infection with cough and congestion- Primary Lumbar back pain Lumbago Migraine with aura and without status migrainosus, not intractable ([facility]/HCC) Type 2 diabetes mellitus with diabetic microalbuminuria, without long-term current use of insulin ([facility]) Diabetic polyneuropathy associated with type [...] microalbuminuria, without long-term current use of insulin ([facility]/HCC)- Primary Essential hypertension Unspecified essential hypertension Other hyperlipidemia (CMS/HCC) JANETT (obstructive sleep apnea) Obstructive sleep apnea (adult) (pediatric) Type 2 diabetes mellitus without complication, without long-term current use of insulin (CMS/HCC) Bilateral lower extremity edema- [facility] unspecified osteoporosis type, unspecified pathological fracture presence ([facility]) Diabetic polyneuropathy associated with type 2 diabetes mellitus ([facility]) Gastroesophageal reflux disease without esophagitis Esophageal reflux Migraine with aura and without status migrainosus, not intractable ([facility]) Hospital discharge follow-up Other follow-up examination Type 2 diabetes mellitus with diabetic microalbuminuria, without long-term current use of insulin ([facility])- Primary Other hyperlipidemia Essential hypertension Unspecified essential hypertension Bilateral lower extremity edema Lumbar back pain- Primary Lumbago Hospital discharge follow-up Other follow-up examination Essential hypertension- Primary Unspecified essential hypertension Type 2 diabetes mellitus with diabetic microalbuminuria, without long-term current use of insulin ([facility]) Morbid (severe) obesity due to excess calories (E66.01) Other hyperlipidemia Lumbar back pain Lumbago Type 2 diabetes mellitus without complication, without long-term current use of insulin Diabetic polyneuropathy associated with type 2 diabetes mellitus ([facility]) Mixed urge and stress incontinence Mixed incontinence urge and stress (male)(female) Snoring Other dyspnea and respiratory abnormality Encounter for long-term (current) use of high-risk medication Encounter for long-term (current) use of other medications Type 2 diabetes mellitus with diabetic microalbuminuria, without long-term current use of insulin ([facility])- Primary Essential hypertension Unspecified essential hypertension Other hyperlipidemia Snoring Other dyspnea and respiratory abnormality Mixed urge and stress incontinence Mixed incontinence urge and stress (male)(female) Type 2 diabetes mellitus with diabetic microalbuminuria, without long-term current use of insulin ([facility])- Primary Essential hypertension Unspecified essential hypertension Other hyperlipidemia JANETT (obstructive sleep apnea) Obstructive sleep apnea (adult) (pediatric) Type 2 diabetes mellitus without complication, without long-term current use of insulin Type 2 diabetes mellitus with diabetic microalbuminuria, without long-term current use of insulin ([facility])- Primary Morbid (severe) obesity due to excess calories ([facility]) Other hyperlipidemia Body mass index [...] (CMS/HCC) Hypercalcemia- Primary [facility] unspecified osteoporosis type, unspecified pathological fracture presence ([facility]) Diabetic polyneuropathy associated with type 2 diabetes mellitus ([facility]) Gastroesophageal reflux disease without esophagitis Esophageal reflux Migraine with aura and without status migrainosus, not intractable ([facility]) Hospital discharge follow-up Other follow-up examination Type 2 diabetes mellitus with diabetic microalbuminuria, without long-term current use of insulin ([facility])- Primary Other hyperlipidemia Essential hypertension Unspecified essential hypertension Bilateral lower extremity edema Lumbar back pain- Primary Lumbago Hospital discharge follow-up Other follow-up examination Essential hypertension- Primary Unspecified essential hypertension Type 2 diabetes mellitus with diabetic microalbuminuria, without long-term current use of insulin ([facility]) Morbid (severe) obesity due to excess calories (E66.01) Other hyperlipidemia Lumbar back pain Lumbago Type 2 diabetes mellitus without complication, without long-term current use of insulin Diabetic polyneuropathy associated with type 2 diabetes mellitus ([facility]) Mixed urge and stress incontinence Mixed incontinence urge and stress (male)(female) Snoring Other dyspnea and respiratory abnormality Encounter for long-term (current) use of high-risk medication Encounter for long-term (current) use of other medications Type 2 diabetes mellitus with diabetic microalbuminuria, without long-term current use of insulin ([facility])- Primary Essential hypertension Unspecified essential hypertension Other hyperlipidemia Snoring Other dyspnea and respiratory abnormality Mixed urge and stress incontinence Mixed incontinence urge and stress (male)(female) Type 2 diabetes mellitus with diabetic microalbuminuria, without long-term current use of insulin ([facility])- Primary Essential hypertension Unspecified essential [...] parathyroid hormone (PTH) documented in this encounter [facility] [...] unspecified osteoporosis type, unspecified pathological fracture presence ([facility]) Diabetic polyneuropathy associated with type 2 diabetes mellitus ([facility]) Gastroesophageal reflux disease without esophagitis Esophageal reflux Migraine with aura and without status migrainosus, not intractable ([facility]) Hospital discharge follow-up Other follow-up examination Type 2 diabetes mellitus with diabetic microalbuminuria, without long-term current use of insulin ([facility])- Primary Other hyperlipidemia Essential hypertension Unspecified essential hypertension Bilateral lower extremity edema Lumbar back pain- Primary Lumbago Hospital discharge follow-up Other follow-up examination Essential hypertension- Primary Unspecified essential hypertension Type 2 diabetes mellitus with diabetic microalbuminuria, without long-term current use of insulin ([facility]) Morbid (severe) obesity due to excess calories (E66.01) Other hyperlipidemia Lumbar back pain Lumbago Type 2 diabetes mellitus without complication, without long-term current use of insulin Diabetic polyneuropathy associated with type 2 diabetes mellitus ([facility]) Mixed urge and stress incontinence Mixed incontinence urge and stress (male)(female) Snoring Other dyspnea and respiratory abnormality Encounter for long-term (current) use of high-risk medication Encounter for long-term (current) use of other medications Type 2 diabetes mellitus with diabetic microalbuminuria, without long-term current use of insulin ([facility])- Primary Essential hypertension Unspecified essential hypertension Other hyperlipidemia Snoring Other dyspnea and respiratory abnormality Mixed urge and stress incontinence Mixed incontinence urge and stress (male)(female) Type 2 diabetes mellitus with diabetic microalbuminuria, without long-term current use of insulin ([facility])- Primary Essential hypertension Unspecified essential [...] associated with type 2 diabetes mellitus (CMS/HCC) Acute non-recurrent sinusitis of other sinus- Primary [facility] associated with type 2 diabetes mellitus (CMS/HCC) Diabetic polyneuropathy associated with type 2 diabetes mellitus (CMS/HCC) [facility] N[facility] - Reported* Type Description Date Medical History GERD (gastroesophageal reflux di sease) Medical History Migraine headache Medical History Arthritis Medical History Edema of both legs Medical History Diabetes mellitus, type 2 Medical History Chronic back pain Surgical History ablasion Surgical History back surgery Surgical History hysterectomy Surgical History tubal ligation Hospitalization History see above [employer] Other Reason for referral (narrative)* Consultation (Routine) - Pending Review Specialty Diagnoses / Procedures Referred By Contac t Referred To Contact Neurology Diagnoses Snoring Procedures NM OFFICE/OUTPATIENT NEW HIGH MDM 60 MINUTES Sonam Drake NP [address] [place] [address] Sivan Villegas DO [address] [place] [address] Referral ID Status Reason Start Date Expiration Date Visits Requested Visits Authorized [id number] Pending Review Specialty Services Required 10/03/2023 03/31/2024 1 1 Scheduling Instructions Please include OV note from today * Consultation (Routine) - Pending Review Specialty Diagnoses / Procedures Referred By Contac t Referred To Contact Urology Diagnoses Mixed urge and stress incontinence Procedures NM OFFICE/OUTPATIENT NEW HIGH MDM 60 MINUTES Sonam Drake NP [address] [place] [address] Skinny Villafuerte MD [address] [place] [address] Referral ID Status Reason Start Date Expiration Date Visits Requested Visits Authorized [id number] Pending Review Specialty Services Required 10/03/2023 03/31/2024 [...] knee May 28, 2024 8:36am CONSULT AMEENA DAVISJANES RT KNEE PAIN WX NO MS May 28, 2024 12:55pm Reason for Visit Admit Date Primary osteoarthritis of right knee Apr 2024 12:55pm Additional Source Comments Care Teams (unrecognized sec tion and content) Food Service Counter Clerk Relationship Specialty Start Date End Date Grace, Sr Jonathan P, DO [address] [facility] [place] [address] PCP - General Family Medicine 08/30/21 Food Service Counter Clerk Relationship Specialty Start Date End Date Shaikh [...] April 30, 2023 End: April 30, 2023 Food Service Counter Clerk Relationship Specialty Start Date End Date Jose Chandler MD [address] [place] [address] PCP - General Family Medicine 12/12/23 Sonam Drake NP [address] [place] [address] Nurse Practitioner Family Medicine 09/24/23 Food Service Counter Clerk Relationship Specialty Start Date End Date Jose Chandler MD [address] [place] [address] PCP - General Family Medicine 12/12/23 Sonam Drake NP [address] [place] [address] Nurse Practitioner Family Medicine 09/24/23 Food Service Counter Clerk Relationship Specialty Start Date End Date Jose Chandler MD [address] [place] [address] PCP - General Family Medicine 12/12/23 Sonam Drake NP [address] [place] [address] Nurse Practitioner Family Medicine 09/24/23 Food Service Counter Clerk Relationship Specialty Start Date End Date Jose Chandler MD [address] [place] [phone] PCP - General Family Medicine 12/12/23 Sonam Drake NP [address] [place] [address] Nurse Practitioner Family Medicine 09/24/23 Food Service Counter Clerk Relationship Specialty Start Date End Date Jose Chandler MD [address] [place] [phone] PCP - General Family Medicine 12/12/23 Sonam Drake NP [address] [place] [address] Nurse Practitioner Family Medicine 09/24/23 Food Service Counter Clerk Relationship Specialty Start Date End Date Jose Chandler MD [address] [place] [address] PCP - General Family Medicine 12/12/23 Sonam Drake NP [address] [place] [address] Nurse Practitioner Family Medicine 09/24/23 Food Service Counter Clerk Relationship Specialty Start Date End Date Jose Chandler MD [address] [place] [address] PCP - General Family Medicine 09/24/23 Sonam Drake NP [address] [place] [address] Nurse Practitioner Family Medicine 09/24/23 Food Service Counter Clerk Relationship Specialty Start Date End Date Jose Chandler MD [address] [place] [phone] PCP - General Family Medicine 09/24/23 Sonam Drake NP [address] [place] [address] Nurse Practitioner Family Medicine 09/24/23 Food Service Counter Clerk Relationship Specialty Start Date End Date Jose Chandler MD [address] [place] [address] PCP - General Family Medicine 09/24/23 Sonam Drake NP [address] [place] [address] Nurse Practitioner Family Medicine 09/24/23 Food Service Counter Clerk Relationship Specialty Start Date End Date Jose Chandler MD [address] [place] [address] PCP - General Family Medicine 09/24/23 Sonam Drake NP [address] [place] [address] Nurse Practitioner Family Medicine 09/24/23 Food Service Counter Clerk Relationship Specialty Start Date End Date Jose Chandler MD [address] [place] [address] PCP - General Family Medicine 12/12/23 Sonam Drake NP [address] [place] [address] Nurse Practitioner Family Medicine 09/24/23 Food Service Counter Clerk Relationship Specialty Start Date End Date Jose Chandler MD [address] [place] [address] PCP - General Family Medicine 12/12/23 Sonam Drake NP [address] [place] [address] Nurse Practitioner Family Medicine 09/24/23 Food Service Counter Clerk Relationship Specialty Start Date End Date Jose Chandler MD [address] [place] [phone] PCP - General Family Medicine 12/12/23 Sonam Drake NP [address] [place] [address] Nurse Practitioner Family Medicine 09/24/23 Food Service Counter Clerk Relationship Specialty Start Date End Date Jose Chandler MD [address] [place] [address] PCP - General Family Medicine 12/12/23 Sonam Drake NP [address] [place] [address] Nurse Practitioner Family Medicine 09/24/23 Food Service Counter Clerk Relationship Specialty Start Date End Date Jose Chandler MD [address] [place] [address] PCP - General Family Medicine 12/12/23 Sonam Drake NP [address] [place] [address] Nurse Practitioner Family Medicine 09/24/23 Food Service Counter Clerk Relationship Specialty Start Date End Date Jose Chandler MD [address] [place] [address] PCP - General Family Medicine 12/12/23 Sonam Drake NP [address] [place] [address] Nurse Practitioner Family Medicine 09/24/23 Food Service Counter Clerk Relationship Specialty Start Date End Date Jose Chandler MD [address] [place] [address] PCP - General Family Medicine 12/12/23 Sonam Drake NP [address] [place] [address] Nurse Practitioner Family Medicine 09/24/23 Food Service Counter Clerk Relationship Specialty Start Date End Date Jose Chandler MD [address] [place] [address] PCP - General Family Medicine 12/12/23 Sonam Drake NP [address] [place] [address] Nurse Practitioner Family Medicine 09/24/23 Food Service Counter Clerk Relationship Specialty Start Date End Date Jose Chandler MD [address] [place] [phone] PCP - General Family Medicine 12/12/23 Sonam Drake NP [address] [place] [address] Nurse Practitioner Family Medicine 09/24/23 Food Service Counter Clerk Relationship Specialty Start Date End Date Jose Chandler MD [address] [place] [address] PCP - General Family Medicine 12/12/23 Sonam Drake NP [address] [place] [address] Nurse Practitioner Family Medicine 09/24/23 Food Service Counter Clerk Relationship Specialty Start Date End Date Jose Chandler MD [address] [place] [phone] PCP - General Family Medicine 12/12/23 Sonam Drake NP Nurse Practitioner Family Medicine 09/24/23 Za Wilkerson NP [address] Nurse Practitioner Neurology 04/21/24 Sivan Villegas DO [address] [place] [address] Referring Physician Neurology 04/21/24 Food Service Counter Clerk Relationship Specialty Start Date End Date Jose Chandler MD [address] [place] [phone] PCP - General Family Medicine 12/12/23 Sonam Drake NP Nurse Practitioner Family Medicine 09/24/23 Za Wilkerson NP [address] Nurse Practitioner Neurology 04/21/24 Sivan Villegas DO [address] [place] [address] Referring Physician Neurology 04/21/24 Food Service Counter Clerk Relationship Specialty Start Date End Date Jose Chandler MD [address] [place] [phone] PCP - General Family Medicine 12/12/23 Sonam Drake NP Nurse Practitioner Family Medicine 09/24/23 Za Wilkerson NP [address], [place] Nurse Practitioner Neurology 04/21/24 Sivan Villegas DO [address] [place] [address] Referring Physician Neurology 04/21/24 Food Service Counter Clerk Relationship Specialty Start Date End Date Jose Chandler MD [address] [place] [phone] PCP - General Family Medicine 12/12/23 Sonam Drake NP Nurse Practitioner Family Medicine 09/24/23 Za Wilkerson NP [address] [place], [place] Nurse Practitioner Neurology 04/21/24 Sivan Villegas DO [address] [place] [address] Referring Physician Neurology 04/21/24 Food Service Counter Clerk Relationship Specialty Start Date End Date Jose Chandler MD [address] [place] [phone] PCP - General Family Medicine 12/12/23 Sonam Drake NP Nurse Practitioner Family Medicine 09/24/23 Za Wilkerson NP [address] [place], [place] Nurse Practitioner Neurology 04/21/24 Sivan Villegas DO [address] [place] [address] Referring Physician Neurology 04/21/24 Food Service Counter Clerk Relationship Specialty Start Date End Date Jose Chandler MD [address] [place] [phone] PCP - General Family Medicine 12/12/23 Sonam Drake NP Nurse Practitioner Family Medicine 09/24/23 Za Wilkerson NP [address] [place], [place] Nurse Practitioner Neurology 04/21/24 Sivan Villegas DO [address] [place], [place] [id number] Referring Physician Neurology 04/21/24 Food Service Counter Clerk Relationship Specialty Start Date End Date Jose Chandler MD [address] [place] [phone] PCP - General Family Medicine 12/12/23 Sonam Drake NP Nurse Practitioner Family Medicine 09/24/23 Za Wilkerson NP [address] [place], [place] Nurse Practitioner Neurology 04/21/24 Sivan Villegas DO [address] [place], [place] [id number] Referring Physician Neurology 04/21/24 Team Status: Active [...] May 28, 2024 End: May 28, 2024 Food Service Counter Clerk Relationship Specialty Start Date End Date Jose Chandler MD [address] [place] [phone] PCP - General Family Medicine 12/12/23 Sonam Drake NP Nurse Practitioner Family Medicine 09/24/23 Za Wilkerson NP [address] [place], [place] Nurse Practitioner Neurology 04/21/24 Sivan Villegas DO [address] [place], [place] [id number] Referring Physician Neurology 04/21/24 Food Service Counter Clerk Relationship Specialty Start Date End Date Jose Chandler MD [address] [place] [phone] PCP - General Family Medicine 12/12/23 Sonam Drake NP Nurse Practitioner Family Medicine 09/24/23 Za Wilkerson NP [address] [place], [place] Nurse Practitioner Neurology 04/21/24 Sivan Villegas DO [address] [place], [place] [id number] Referring Physician Neurology 04/21/24 INFORMATION SOURCE (unrecogn ized section and content) DATE CREATED AUTHOR 09/10/2021 [facility] DATE CREATED AUTHOR AUTHOR'S ORGANIZ ATION 06/08/2022 [facility] [place] [facility] DATE CREATED AUTHOR AUTHOR'S ORGANIZ ATION 10/06/2023 [facility] DATE CREATED AUTHOR AUTHOR'S ORGANIZ ATION 05/20/2024 [facility] DATE CREATED AUTHOR AUTHOR'S ORGANIZ ATION 06/01/2024 [facility] REASON FOR VISIT (unrecogniz ed [...] Comments Knee Pain Reason Comments Sleep Apnea Reason Onset Date Comments Med Refill 06/23/2024 Goals (unrecognized section and content) Goals may [...] BE BASED ON THE PRIMARY CLINICAL RECORDS. [employer] provides no warranty or guarantee of the accuracy or completeness of information in this document.
--- NOTE | 2024-07-01 09:47 | PM.CN ---
Consult Note: HPI Data of Consult Patient: known to practice within the last 3 years Requesting Physician: Chela Tijerina NP Primary Care Provider: Ameena Vera NP Consult Narrative Reason for consult: f/u Narrative: Brian Weir a pleasant 58 year old female presents for evaluation and management of chronic low back pain. pt has failed to benefit from 6 weeks of provider guided HEP/PT, tylenol, NSAIDs, heat and ice. Recently underwent right and left L4-5 L5-S1 facet RFA with >50% improvement in pain and functional ability ongoing. Pain today 5/10 increasing to 7/10, pain increased with standing, walking, activity, lifting, stairs, bending, twisting, pushing, pulling. Pain improved with lying and reclining. Utilizes baclofen, diclofenac, lyrica, and percocet for pain with moderate relief without side effects. recently underwent right SIJ injection with >80% improvement ongoing. cc:: CC: Chela Tijerina NP Review of Systems ROS Status of ROS 10 or more systems reviewed and unremarkable except as noted in history and below Musculoskeletal Reports: back pain and joint pain PFSH PFSH Medical History Morbid obesity due to excess calories ?E66.01 - Morbid (severe) obesity due to excess calories (ICD-10) Type 2 diabetes mellitus with hyperglycemia ?E11.65 - Type 2 diabetes mellitus with hyperglycemia (ICD-10) HTN (hypertension) ?I10 - Essential (primary) hypertension (ICD-10) Lumbar spondylosis ?M47.816 - Spondylosis without myelopathy or radiculopathy, lumbar region (ICD-10) Fracture of foot ?S92.909A - Unspecified fracture of unspecified foot, initial encounter for closed fracture (ICD-10) Closed fibular fracture ?S82.409A - Unspecified fracture of shaft of unspecified fibula, initial encounter for closed fracture (ICD-10) Fracture of medial cuneiform of left foot ?S92.242A - Displaced fracture of medial cuneiform of left foot, initial encounter for closed fracture (ICD-10) Fracture of metatarsal of left foot, closed ?S92.302A - Fracture of unspecified metatarsal bone(s), left foot, initial encounter for closed fracture (ICD-10) Dislocation of foot, left, closed ?S93.305A - Unspecified dislocation of left foot, initial encounter (ICD-10) Mild protein-calorie malnutrition ?E44.1 - Mild protein-calorie malnutrition (ICD-10) Acute exacerbation of chronic low back pain ?M54.50 - Low back pain, unspecified (ICD-10) ?G89.29 - Other chronic pain (ICD-10) Migraine headache ?G43.909 - Migraine, unspecified, not intractable, without status migrainosus (ICD-10) Hyperlipidemia ?E78.5 - Hyperlipidemia, unspecified (ICD-10) Iron deficiency anemia ?D50.9 - Iron deficiency anemia, unspecified (ICD-10) Lumbar radiculopathy ?M54.16 - Radiculopathy, lumbar region (ICD-10) Chronic prescription opiate use ?Z79.891 - adjunct faculty for medical terminology (current) use of opiate analgesic (ICD-10) Sacroiliac joint pain ?M53.3 - Sacrococcygeal disorders, not elsewhere classified (ICD-10) Muscle spasm ?M62.838 - Other muscle spasm (ICD-10) Cervical spondylosis ?M47.812 - Spondylosis without myelopathy or radiculopathy, cervical region (ICD-10) Lumbar stenosis with neurogenic claudication ?M48.062 - Spinal stenosis, lumbar region with neurogenic claudication (ICD-10) Compression fracture of L1 vertebra ?S32.010A - Wedge compression fracture of first lumbar vertebra, initial encounter for closed fracture (ICD-10) Tubal ?O00.109 - Unspecified tubal without intrauterine (ICD-10) TMJ (dislocation of temporomandibular joint) ?S03.00XA - Dislocation of jaw, unspecified side, initial encounter (ICD-10) Upper back pain ?M54.9 - Dorsalgia, unspecified (ICD-10) Back pain ?M54.9 - Dorsalgia, unspecified (ICD-10) Neck pain ?M54.2 - Cervicalgia (ICD-10) Osteoarthritis ?M19.90 - Unspecified osteoarthritis, unspecified site (ICD-10) Obesity ?E66.9 - Obesity, unspecified (ICD-10) Heartburn ?R12 - Heartburn (ICD-10) Acid reflux ?K21.9 - Gastro-esophageal reflux disease without esophagitis (ICD-10) Diabetes ?E11.9 - Type 2 diabetes mellitus without complications (ICD-10) Smoker ?F17.200 - Nicotine dependence, unspecified, uncomplicated (ICD-10) Surgical History (Updated 06/12/24 @ 14:03 by Poonam Kyle) H/O unilateral salpingectomy ?Z90.79 - Acquired absence of other genital organ(s) (ICD-10) S/P lumbar spine operation ?Z98.890 - Other specified postprocedural states (ICD-10) H/O: hysterectomy ?Z90.710 - Acquired absence of both cervix and uterus (ICD-10) Family History Mother Family history of CHF (congestive heart failure) Family history of cancer Family history of diabetes mellitus Family history of hypertension Family history of myocardial infarction Social History Within the past year, how often did you have a drink containing alcohol: monthly or less Smoking status: Light tobacco smoker Non-prescribed substance use: denies use Previous occupational history: retired/disability Highest level of school completed/degree received: high school graduate Are you now , , , , never or living with a partner: In a typical week, how many times do you talk on the telephone with family, friends, or neighbors: 3 or more times per week How often do you get together with friends or relatives: 3 or more times per week How often do you attend taoism or episcopal services: never Little interest or pleasure in doing things: not at all Feeling down, depressed, or hopeless: not at all Feel stressed/tense/nervous/anxious/difficulty sleeping: not at all Do you think of yourself as: straight/heterosexual Gender Identity: female Meds Home Medications and Allergies Home Medications ?Medication ?Instructions ?Recorded ?Confirmed ?Type alendronate 70 mg tablet 70 mg PO QWEEK 07/20/22 06/22/24 History allopurinol 300 mg tablet 300 mg PO DAILY 07/20/22 06/22/24 History aspirin 81 mg tablet,delayed 81 mg PO DAILY 07/20/22 06/22/24 History release (Adult Aspirin Regimen) diclofenac sodium 75 mg 75 mg PO BID 07/20/22 06/22/24 History tablet,delayed release divalproex 500 mg tablet,delayed 500 mg PO BID 07/20/22 06/22/24 History release (Depakote) glucosamine GTc-V4-Czogmvonl 1 tab PO DAILY 07/20/22 06/22/24 History krzysztof 1,500 mg-400 unit-100 mg tablet (Osteo Bi-Flex (5-Loxin)) multivitamin 1 tab PO DAILY 07/20/22 06/22/24 History oxycodone-acetaminophen 5 mg-325 1 tab PO DAILY PRN pain 07/20/22 06/22/24 History mg tablet prasterone (DHEA) 50 mg capsule 50 mg PO DAILY 07/20/22 06/22/24 History (DHEA) famotidine 20 mg tablet 20 mg PO BID 06/08/23 06/22/24 History metformin 1,000 mg tablet 500 mg PO BID 06/08/23 06/22/24 History rizatriptan 10 mg tablet 10 mg PO Q2H PRN migraine headache 06/08/23 06/22/24 History rosuvastatin 20 mg tablet 20 mg PO DAILY 06/08/23 06/22/24 History pregabalin 75 mg capsule 75 mg PO BID 08/17/23 06/22/24 History semaglutide 1 mg/dose (4 mg/3 mL) 1 mg subcut QWEEK 08/17/23 06/22/24 History subcutaneous pen injector (Ozempic) baclofen 20 mg tablet 20 mg PO TID PRN muscle spasm #60 08/18/23 06/22/24 Rx tabs Allergies Allergy/AdvReac Type Severity Reaction Status Date / Time No Known Drug Allergies Allergy Verified 06/22/24 09:21 Exam Constitutional Documenting provider has reviewed patient's vital signs: yes Common normals: no apparent distress, oriented x3, healthy appearing, alert and well nourished General appearance: cooperative [facility] Common normals: normocephalic, hearing grossly normal bilaterally and moist oral mucous membranes Head and scalp: normocephalic Eye Common normals: PERRL Pupil: PERRL Neck & C-Spine Common normals: full ROM General: normal visual inspection Chest Common normals: inspection of chest normal Respiratory Common normals: normal respiratory effort, no retractions and no use of accessory muscles Back & Pelvis Lumbar spine/lower back: lumbar ROM normal; no pain with ROM, no lumbar spinal tenderness, no paraspinal muscle tenderness and no paraspinal muscle spasm Sacroiliac joints: SI joint(s) abnormal Other: left sij positive paris(patricks), gaenslens, thigh thrust, compression test Neuro Common normals: oriented x3 Sensorium/orientation: alert Motor exam: strength 5/5 throughout and no movement abnormalities noted Psych Common normals: mental status grossly normal, thought process normal, cooperative, affect normal, speech normal and activity/motor behavior normal Speech: normal speech Thought process: normal thought process Results Additional Findings Additional findings: If on a controlled substance or opioids, I have checked an [place]AR[place] report on this patient and there are no aberrancies noted in the prescribing history.??If on a controlled substance or opioid a drug screen was completed and reviewed within the last year, and if there has not been a drug screen completed we ordered one today to monitor higher risk, state monitored pain medication use. As part of providing excellent, safe, comprehensive care, the following was completed at our patient's visit: 1. A medication reconciliation and review to ensure accurate knowledge of current/active medications, including asking our patients to inform us about any [id number] medications or herbal remedies/nutritional supplements/alternative remedies. 2. A review to specifically ensure our patients have had annual screening for screening for depression, screening for tobacco use, and screening for unhealthy alcohol use. For concerning screenings had a discussion with the patient, provided patient education, and recommended follow-up with primary care provider when appropriate. If patient noted with a risk of falling, they received education on strength, gait, and balance training to prevent future risk of falling. Portions of this note may have been carried over from the previous visit and updated as appropriate. Please note this office utilizes paper charting in addition to the electronic medical record. A list of current medications, vitals, and PMH is available there as the clinical staff outside of myself do not have access to [employer] charting during the clinic day operations. As part of providing quality comprehensive care the current medications, vitals, and PMH were reviewed in the paper chart. Assessment and Plan Assessment and Plan (1) Sacroiliitis: Assessment and Plan: 06/22/24 right SIJ injection >80% improvement ongoing (2) Lumbar spondylosis: (3) Unspecified mononeuropathy of right lower limb: (4) Myalgia, other site: (5) Chronic prescription opiate use: Assessment and Plan: I feel these medications are improving the patient's quality of life and allow them to tolerate activities of daily living as well as participate in recreational activity.? The patient does not report intolerable side effects. The patient is NOT opioid naive and non-pharmacologic and non-opioid treatment has failed to significantly relieve the patient's pain and improve functionality. The patient has a diagnosis that is related to a somatic or visceral pain etiology. ? ?? I reviewed with the patient the potential risks and side effects with the use of? opioid medications including but not limited to respiratory depression,? sedation, and even . Within the last 12 months I have verified the patient has access to naloxone should? these effects occur. The patient was advised to let? their family know they had Naloxone in case they would need to administer? the medication. I advised the patient to avoid the use of any other? sedation substances including alcohol, THC, and benzodiazepines while? taking opioid medications due to the risk of compounding side effects and? detrimental outcomes. within the last 12 months I have reviewed the TOPOGRAPHIC COMPUTATOR, pain treatment agreement and urine drug screen.? ?? A drug screen was completed within the last year, and no aberrancies were noted regarding their use of controlled substances. The patient understands they are subject to the terms and conditions of the pain contract that they have signed. ? ?? I have checked an OARRS report on this patient today and there are no aberrancies noted in the prescribing history.? (6) Sacroiliac joint pain: (7) Lumbar stenosis with neurogenic claudication: Plan continue current medications update UDS today continue HEP as tolerated f/u 3 months, sooner if needed
== END 2024-07-01 09:14 | disposition home or self-care (01) ==
PROVIDERS: PCP Nurse Practitioner; Visit Provider Nurse Practitioner
DX: M46.1 Sacroiliitis, not elsewhere classified (principal); M47.816 Spondylosis without myelopathy or radiculopathy, lumbar region; G57.91 Unspecified mononeuropathy of right lower limb; M79.18 Myalgia, other site; Z79.891 Long term (current) use of opiate analgesic; M53.3 Sacrococcygeal disorders, not elsewhere classified; M48.062 Spinal stenosis, lumbar region with neurogenic claudication
CPT/HCPCS: G0463

== ENCOUNTER 2024-07-09 09:48 | Outpatient (OUT) | payer OTHER, MEDICARE, SELFPAY ==
--- OUTSIDE RECORDS SUMMARY | 2024-07-09 10:11 | XMS_ITS | CCD ---
Author Organization [facility] Care Team Providers Care Credit Control Administrator Name Role Phone House DO, Sr Jonathan Klein Primary Care Provider [phone] BARCLAYRADHA Referring Unavailabl e HOUSE, SR JONATHAN [...] Unavailable HOUSE, DR BASURTO Primary Care Unavailable [place], DR RYAN Guzman Consulting Unavailable HOUSE, DR [...] Shaikh Connelly MD Primary Care Provider Vidal FINANCIAL SERVICES SALES REPRESENTATIVE, Sonam Unavailable Ramesh HOLLIS, Jose Primary Care Provider [phone] Jose Chandler MD Primary Care Provider [employer]idal [employer]ANCIAL SERVICES SALES REPRESENTATIVE, Sonam Unavailable [phone] Rock FINANCIAL SERVICES SALES REPRESENTATIVE, Za Unavailable Sivan Villegas DO Unavailable SHAIKH CONNELLY Attending Unavailable SHAIKH CONNELLY Attending Unavailable SHAIKH CONNELLY Attending Unavailable SONAM DRAKE Attending Unavailabl e VIDAL, SONAM Attending Unavailcurtis e SIVAN VILLEGAS Attending Unavailable SONAM DRAKE Referring Unavailabl e DRAKE, SONAM Attending Chantel DRAKE, SONAM Attending UnavailALICIA Reese Attending Unavailable ZA WILKERSON Attending Unavailable AMEENA VERA Attending Unavailable Lui Banks II Attending Lui Monzon II Admitting Chantel e NON STAFF Primary Care Unavailable NON STAFF Primary Care Provider Lui Monzon MD Attending Provider Keo HOLLIS, Tanya Esposito Attending Unavailable Medications Current Medications Medication Drug [...] 30 tablet 11/04/2023 12/18/2023 Discontinued Continuous Glucose Fish Rod Maker (Dexcom G7 Fish Rod Maker) device (20 sources) Start: 03-03-2024 Continuous Glu cose Fish Rod Maker (Dexcom G7 Fish Rod Maker) device Indications: Type 2 diabetes mellitus with diabetic microalbuminuria, without long-term current use of insulin ([facility]) 1 each continuously 1 each 03/03/2024 Active Continuous Glucose Sensor (Dexcom G7 Sensor) [facility] [place] (20 sources) Start: 03-30-2024 Continuous Glu cose Sensor (Dexcom G7 Sensor) [facility] [place] Indications: Type 2 diabetes mellitus with diabetic microalbuminuria, without long-term current use of insulin ([facility]) 1 each continuously 3 each 11 03/30/2024 Active Start: 03-03-2024 End: 03-30-2024 Continuous Glucose Sensor (D excom G7 Sensor) [facility] [place] Indications: Type 2 diabetes mellitus with diabetic microalbuminuria, without long-term current use of insulin ([facility]) 1 each continuously 3 each 11 03/03/2024 03/30/2024 Discontinued (Reorder) Start: 03-03-2024 Continuous Glu cose Sensor (Dexcom G7 Sensor) [facility] [place] Indications: Type 2 diabetes mellitus with diabetic microalbuminuria, without long-term current use of insulin ([facility]) 1 each continuously 3 each 03/03/2024 Active [...] Active take 1 tablet by mouth once sraiah y ascorbic acid (VITAMIN C) 500 MG [...] 12, 2017 1:00am January 15, 2017 2:23pm Ntsstomzoxuc-Wt-P pablo-Minerals (Multiple Vitamin, Womens) Tablet (2 sources) Start: 01-12-2017 End: 01-15-2017 Aqkawfjnpnie-Sf-G pablo-Minerals (Multiple Vitamin, Womens) Tablet Discontinued PO [...] By: Anton Penny on 05-28-2024 Study report [facility] [address] [place] [address] XRay Report Signed Patient: Karina De Oliveira MR#: [id number] : 1965 Acct:[id number] Age/Sex: 58 / F ADM Date: 5 [place] [facility] [place] Type: [facility] Attending Dr: Lui Banks II, MD Copies to: Lui Banks MD~ Ordering Provider: Lui Banks MD Date of Service: 05/28/24 XR/XR knee RT 4V*: M25.561 - Pain in right knee ([id number]) XR/XR pelvis 1-2V: M25.561 - Pain in [...] KNEE. Impression dictated by: Moustapha Penny Jr., D.OPasquale05/28/2024 3:24 PM Dictation Location: [facility]22 Transcribed By: [facility] 05/28/24 1524 Dictated By: Moustapha Penny Jr, DO 05/28/24 1523 Signed By: 05/28/24 1524 [facility] XR knee RT 4V*on 05-28-2024 XR knee RT 4V* [facility] [address] [place] [address] XRay Report Signed Patient: Karina De Oliveira MR#: [id number] : 1965 Acct:[id number] Age/Sex: 58 / F ADM Date: 05/28/24 Loc: [facility] Room: Type: [facility] Attending Dr: Lui Banks II, MD Copies to: Lui Banks MD Ordering Provider: Lui Banks MD Date of Service: 05/28/24 XR/XR knee RT 4V*: M25.561 - Pain in right knee ([id number]) XR/XR pelvis 1-2V: M25.561 - Pain in [...] Penny Jr., D.O.05/28/2024 3:24 PM Dictation Location: [place] [address] Transcribed By: [facility] 05/28/24 152 Dictated By: Moustapha Penny Jr, DO 05/28/24 152 Signed By: 05/28/24 152 Normal The [facility] ALL CBC WITH AUTO DIFFon BASOPHILS ABSOLUTE AUTO 0.1 [facility] Basophils/100 WBC (Bld) 0.5 % 0.2 - 2.0 % [facility] Eosinophils/100 WBC (Bld) 4 % 0.9 - 7.0 % [facility] Erythrocyte distribution width (RBC) [Ratio] 14.6 % 11.0 - 15.0 % [facility] Hematocrit (Bld) [Volume fraction] 41.6 % 36.0 - 48.0 % [facility] Hemoglobin (Bld) [Mass/Vol] 14.1 g/dL 12.0 - 16.0 g/dL [facility] IMMATURE GRANULOCYTES ABS AUTO 0.07 High [facility] Immature granulocytes/100 WBC (Bld) 0.6 % High 0.0 - 0.5 % [facility] Interpretation and review of laboratory results Abnormal [facility] LYMPHOCYTES ABSOLUTE AUTO 3.6 [facility] Lymphocytes/100 WBC (Bld) 32.6 % 20.5 - 60.0 % [facility] MCH (RBC) [Entitic mass] 32.3 pg 26.7 - 34.0 pg [facility] MCHC (RBC) [Mass/Vol] 33.9 g/dL 29.9 - 35.2 g/dL [facility] MCV (RBC) [Entitic vol] 95.2 fL 81.0 - 99.0 fL [facility] MONOCYTES ABSOLUTE AUTO 0.8 [facility] Monocytes/100 WBC (Bld) 6.9 % 1.7 - 12.0 % [facility] NEUTROPHILS ABSOLUTE AUTO 6.2 [facility] Neutrophils/100 WBC (Bld) 55.4 % 43.0 - 75.0 % [facility] Platelet mean volume (Bld) [Entitic vol] 10.7 fL 9.5 - 13.5 fL [facility] TBH EO # 0.4 [facility] TBH PLT 193 [facility] TB RBC 4.37 [facility] WBC 11.1 High [facility] Healthcare XR Knee - right [address] [place] [address] XRay Report Signed Patient: KARINA DE OLIVEIRA MR#: [id number] : 1965 Acct:[id number] Age/Sex: 58 / F ADM Date: 05/21/24 Loc: LAB Attending Dr: Ameena Vera FINANCIAL SERVICES SALES REPRESENTATIVE Ordering Physician: Ameena Vera NP Date of Service: 05/21/24 Procedure(s): XR knee RT 3V Accession Number(s): [id number] cc: Ameena Vera NP The [place] [address] Patient Name: KARINA DE OLIVEIRA MRN: [facility]:[id number] date: 1965 Sex: F Assigned Patient Location: LAB Current Patient Location: LAB Accession/Order Number: [id number] Exam Date: 05/21/2024 13:21 Report Date: 05/21/2024 [...] Penny Jr., D.O.05/21/2024 1:21 PM Dictation Location: [place] [address] Electronically authenticated by: [id number] Y Date: 05/21/2024 13:21 Dictated By: Moustapha Penny M.D. Signed By: 05/21/24 1324 DD/ 1321 TD/TT: Workforce Management Coordinator: [facility] Radiology, Radiologist, - 05/21/2024 The [place] [id number] XRay Report Signed Patient: KARINA DE OLIVEIRA MR#: [id number] : 1965 Acct:[id number] Age/Sex: 58 / F ADM Date: 05/21/24 Loc: LAB Attending Dr: Ameena Vera FINANCIAL SERVICES SALES REPRESENTATIVE Ordering Physician: Ameena Vera NP Date of Service: 05/21/24 Procedure(s): XR knee RT 3V Accession Number(s): [id number] cc: Ameena Vera NP [place] [address] Patient Name: KARINA DE OLIVEIRA MRN: [facility]:[id number] date: 1965 Sex: F Assigned Patient Location: LAB Current Patient Location: LAB Accession/Order Number: [id number] Exam Date: 05/21/2024 13:21 Report Date: 05/21/2024 [...] Penny Jr., D.O.05/21/2024 1:21 PM Dictation Location: [place] [address] Electronically authenticated by: [id number] Y Date: 05/21/2024 13:21 Dictated By: Moustapha Penny M.D. Signed By: 05/21/24 1324 DD/ 1321 TD/TT: Workforce Management Coordinator: [facility] Study observation (narrative) [facility] XR Knee - right 3 ViewsOrder ed By: Radiologist Radiology on 05-21-2024 [facility] Work Phone: HbA1c (Bld) [Mass fraction]o n 05-19-2024 Interpretation and review of laboratory results Abnormal [facility] - Hematology and Cell countson 05-19-2024 HbA1c (Bld) [Mass fraction] 6.70 % [facility] HbA1c (Bld) [Mass fraction]o n 03-30-2024 Interpretation and review of laboratory results Abnormal [facility] - Hematology and Cell countson 03-30-2024 HbA1c (Bld) [Mass fraction] 6.9 % [facility] MM TOMOSYNTHESIS SCREENING B Ion 03-18-2024 [place] [address] Mammography Report Signed Patient: KARINA DE OLIVEIRA MR#: [id number] : 1965 Acct:[id number] Age/Sex: 58 / F ADM Date: 03/18/24 Loc: MAMMO Attending Dr: RADHA BARCLAY Ordering Physician: RADHA BARCLAY Results: Date of Service: 03/18/24 Follow Up: Procedure(s): MM tomosynthesis screening BI Accession Number(s): [id number] cc: LOCO DRAKE SUSAN Patient Name: KARINA DE OLIVEIRA MR#: [id number] : 1965 Exam Date: 03/18/2024 Ordering Doctor: DR RADHA BARCLAY [facility] RADIOLOGY REPORT PROCEDURE: MM TOMOSYNTHESIS SCREENING [...] skin cancer at age 69. LOCATION: The [facility] BREAST COMPOSITION: There are scattered areas of [...] Cortes M.D. Signed By: 03/18/24 1454 DD/ TD/TT: Workforce Management Coordinator: [facility] Radiology, Radiologist, MD - 03/18/2024 [place] [address] Mammography Report Signed Patient: KARINA DE OLIVEIRA MR#: [id number] : 1965 Acct:[id number] Age/Sex: 58 / F ADM Date: 03/18/24 Loc: MAMMO Attending Dr: RADHA BARCLAY Ordering Physician: RADHA BARCLAY Results: Date of Service: 03/18/24 Follow Up: Procedure(s): MM tomosynthesis screening BI Accession Number(s): [id number] cc: LOCO DRAKE SUSAN Patient Name: KARINA DE OLIVEIRA MR#: [id number] : 1965 Exam Date: 03/18/2024 Ordering Doctor: DR RADHA BARCLAY [facility] RADIOLOGY REPORT PROCEDURE: MM TOMOSYNTHESIS SCREENING [...] skin cancer at age 69. LOCATION: The [facility] BREAST COMPOSITION: There are scattered areas of [...] Signed By: 03/18/24 1454 DD/ 53 TD/TT: Workforce Management Coordinator: [facility] Study observation (narrative) [facility] MM TOMOSYNTHESIS SCREENING B IOrdered By: Radiologist Radiology on 03-18-2024 [facility] Work Phone: ALL CBC WITH AUTO DIFFon BASOPHILS ABSOLUTE AUTO 0.1 [facility] Basophils/100 WBC (Bld) 0.4 % 0.2 - 2.0 % [facility] Eosinophils/100 WBC (Bld) 3.2 % 0.9 - 7.0 % [facility] Erythrocyte distribution width (RBC) [Ratio] 15.6 % High 11.0 - 15.0 % [facility] Hematocrit (Bld) [Volume fraction] 42.4 % 36.0 - 48.0 % [facility] Hemoglobin (Bld) [Mass/Vol] 13.9 g/dL 12.0 - [...] 10.9 fL 9.5 - 13.5 fL [facility] TBH EO # 0.4 [facility] TB PLT 219 [facility] RBC 4.43 [facility] WBC 12.8 High [facility] XR LSPINE 2_3 VIEWSon 2022 XR LSPINE [...] PATTIE CORTES Date: 2022-06-07 11:15 Normal The [facility] CBC AUTO DIFFon 04-12-2022 BASO # 0.1 103/ul Normal 0.0-0.1 The [facility] Comment on above: Performed By: #### C BC ####[facility] [address] [place] [address]DrPasquale Valenzuela Basophils/100 WBC (Bld) 0.5 % Normal 0.2-2.0 [facility] [place] [facility] Comment on above: Performed By: #### C BC ####[facility] [address] [place] [address]Dr. Ricky Valenzuela EO # 0.3 103/ul Normal 0.0-0.7 The [facility] Comment on above: Performed By: #### C BC ####[facility] [address] [place] [address]Dr. Ricky Valenzuela Eosinophils/100 WBC (Bld) 3.0 % Normal 0.9-7.0 The [facility] Comment on above: Performed By: #### C BC ####[facility] [address] [place], [place] [address]Dr. Ricky Valenzuela Erythrocyte distribution width (RBC) [Ratio] 14.8 % Normal 11.0-15.0 The [facility] Comment on above: Performed By: #### C BC ####[facility] [address] [place], [place] [address]Dr. Ricky Valenzuela Hematocrit (Bld) [Volume fraction] 40.6 % Normal 36.0-48.0 The [facility] Comment on above: Performed By: #### C BC ####[facility] [address] [place], [place] [address]Dr. Ricky Valenzuela Hemoglobin (Bld) [Mass/Vol] 13.5 g/dL Normal 12.0-16.0 The [facility] Comment on above: Performed By: #### C BC ####[facility] [address] [place], [place] [address]Dr. Ricky Valenzuela IG # 0.16 10e3/ul Critically high 0.00-0.03 The [facility] Comment on above: Performed By: #### C BC ####[facility] [address] [place], [place] [address]Dr. Ricky Valenzuela IG % 1.4 % Critically high 0.0-0.5 The [facility] Comment on above: Performed By: #### C BC ####[facility] [address] [place], [place] [address]Dr. Ricky Valenzuela LYMPH # 3.4 103/ul Normal 1.2-3.8 The [facility] Comment on above: Performed By: #### C BC ####[facility] [address] [place] [address]Dr. Lesleysharron Valenzuela Lymphocytes/100 WBC (Bld) 30.4 % Normal 20.5-60.0 The [facility] Comment on above: Performed By: #### C BC ####[facility] [address] [place] [address]Dr. Lesleysharron Valenzuela MANUAL DIFF REQ NO Normal The [facility] Comment on above: Performed By: #### C BC ####[facility] [address] [place] [address]Dr. Ricky Nicolas MCH (RBC) [Entitic mass] 31.8 pg Normal 26.7-34.0 The [facility] Comment on above: Performed By: #### C BC ####[facility] [address] [place], [place] [address]Dr. Ricky Valenzuela MCHC (RBC) [Mass/Vol] 33.3 g/dL Normal 29.9-35.2 The [facility] Comment on above: Performed By: #### C BC ####[facility] [address] [place] [address]Dr. Ricky Valenzuela MCV (RBC) [Entitic vol] 95.5 fL Normal 81.0-99.0 The [facility] Comment on above: Performed By: #### C BC ####[facility] [address] [place], [place] [address]Dr. Ricky Valenzuela MONO # 0.9 103/ul Critically high 0.3-0.8 The [facility] Comment on above: Performed By: #### C BC ####[facility] [address] [place] [address]Dr. Ricky Valenzuela Monocytes/100 WBC (Bld) 7.7 % Normal 1.7-12.0 The [facility] Comment on above: Performed By: #### C BC ####[facility] [address] [place], [place] [address]Dr. Ricky Valenzuela NEUT # 6.3 103/ul Normal 1.4-6.5 The [facility] Comment on above: Performed By: #### C BC ####[facility] [address] [place] [address]Dr. Ricky Valenzuela Neutrophils/100 WBC (Bld) 57.0 % Normal 43.0-75.0 The [facility] Comment on above: Performed By: #### C BC ####[facility] [address] [place] [address]Dr. Ricky Valenzuela Platelet mean volume (Bld) [Entitic vol] 9.8 fL Normal 9.5-13.5 The [facility] Comment on above: Performed By: #### C BC ####[facility] [address] [place] [address]Dr. Ricky Valenzuela PLT 246 103/ul Normal 150-450 The [facility] Comment on above: Performed By: #### C BC ####[facility] [address] [place], [place] [address]Dr. Ricky Valenzuela RBC 4.25 106/ul Normal 4.20-5.40 The [facility] Comment on above: Performed By: #### C BC ####[facility] [address] [place], [place] [address]Dr. Ricky Valenzuela WBC 11.1 103/ul Critically high 4.0-11.0 The [facility] Comment on above: Performed By: #### C BC ####[facility] [address] [place], [place] [address]Dr. Ricky Valenzuela GLYCOHEMOGLOBIN A1Con 2022 ADA RECOMMENDATION SEE BELOW Normal [facility] Comment on above: Result Comment: ADA RECOMMENDED LIMIT 4.0 - 6.0 ADA THERAPEUTIC TARGET < 7.0 ACTION SUGGESTED > 7.0 Performed By: #### A 1C ####[facility] [address] [place] [address]Dr. Ricky Valenzuela Glucose [Mass/Vol] 160 mg/dL Normal [facility] Comment on above: Performed By: #### A 1C ####[facility] [address] [place], [place] [address]Dr. Ricky Valenzuela HbA1c (Bld) [Mass fraction] 7.2 % Critically high 4.5-6.2 The [facility] Comment on above: Performed By: #### A 1C ####[facility] [address] [place], [place] [address]MrDr. Ricky Valenzuela MICROALBUMIN, RAND URon 03-0 mALB <1.3 Normal <=30.0 [facility] [place] [facility] Comment on above: Performed By: #### M ALBR #### [facility] [address] [place] [address] [address] Ricky Valenzuela PROF 14(COMP METB)on 023 Albumin [Mass/Vol] 3.3 g/dL Critically low 3.4-5.0 Th e [facility] Comment on above: Performed By: #### C MP #### [facility] [address] [place] [address] Dr. Ricky Valenzuela Albumin/Globulin [Mass ratio] 0.9 {ratio} Normal [facility] [place] [facility] Comment on above: Performed By: #### C MP #### [facility] [address] [place] [address] Dr. Ricky Valenzuela ALP [Catalytic activity/Vol] 90 U/L Normal 46-116 [facility] [place] [facility] Comment on above: Performed By: #### C MP #### [facility] [address] [place] [address] Dr. Ricky Valenzuela ALT [Catalytic activity/Vol] 42 U/L Normal 14-59 [facility] [place] [facility] Comment on above: Performed By: #### C MP #### [facility] [address] [place] [address] Dr. Ricky Valenzuela Anion gap [Moles/Vol] 10.1 mmol/L Normal [facility] [place] [facility] Comment on above: Performed By: #### C MP #### [facility] [address] [place] [address] Dr. Ricky Valenzuela AST [Catalytic activity/Vol] 21 U/L Normal 15-37 [facility] [place] [facility] Comment on above: Performed By: #### C MP #### [facility] [address] [place] [address] Dr. Ricky Valenzuela Bilirubin [Mass/Vol] 0.3 mg/dL Normal 0.2-1.0 [facility] [place] [facility] Comment on above: Performed By: #### C MP #### [facility] [address] [place] [address] [address] Ricky Valenzuela Calcium [Mass/Vol] 9.8 mg/dL Normal 8.5-10.1 [facility] Comment on above: Performed By: #### C MP #### [facility] [address] [place] [address] [address] Ricky Valenzuela Chloride [Moles/Vol] 99 mmol/L Normal 98-107 [facility] [place] [facility] Comment on above: Performed By: #### C MP #### [facility] [address] [place] [address] [address] Ricky Valenzuela CO2 [Moles/Vol] 33.7 mmol/L Critically high 21.0-32.0 [facility] [place] [facility] Comment on above: Performed By: #### C MP #### [facility] [address] [place] [address] Dr. Ricky Valenzuela Creatinine [Mass/Vol] 0.94 mg/dL Normal 0.55-1.02 [facility] [place] [facility] Comment on above: Performed By: #### C MP #### [facility] [address] [place] [address] Dr. Ricky Valenzuela EGFR-AF TURKISH >60 Normal >=60 [facility] Comment on above: Performed By: #### C MP #### [facility] [address] [place] [address] Dr. Ricky Valenzuela EGFR-NON AF TURKISH >60 Normal >=60 [facility] [place] [facility] Comment on above: Performed By: #### C MP #### [facility] [address] [place] [address] Dr. Ricky Valenzuela Globulin (S) [Mass/Vol] 3.8 g/dL Normal [facility] [place] [facility] Comment on above: Performed By: #### C MP #### [facility] [address] [place] [address] [address] Ricky Valenzuela Glucose [Mass/Vol] 168 mg/dL Critically high 74-106 [facility] Comment on above: Performed By: #### C MP #### [facility] [address] [place] [address] Dr. Ricky Valenzuela Potassium [Moles/Vol] 4.8 mmol/L Normal 3.5-5.1 [facility] [place] [facility] Comment on above: Performed By: #### C MP #### [facility] [address] [place] [address] [address] Ricky Valenzuela Protein [Mass/Vol] 7.1 g/dL Normal 6.4-8.2 [facility] Comment on above: Performed By: #### C MP #### [facility] [address] [place] [address] [address] Ricky Valenzuela Sodium [Moles/Vol] 138 mmol/L Normal 136-145 [facility] Comment on above: Performed By: #### C MP #### [facility] [address] [place] [address] [address] Ricky Valenzuela Urea nitrogen [Mass/Vol] 22.0 mg/dL Critically high 7.0-18.0 [facility] [place] [facility] Comment on above: Performed By: #### C MP #### [facility] [address] [place] [address] [address] Ricky Valenzuela Urea nitrogen/Creatinine [Mass ratio] 23.4 mg/mg Normal [facility] [place] [facility] Comment on above: Performed By: #### C MP #### [facility] [address] [place] [address] [address] Ricky Valenzuela Cytologyon 08-30-2021 Cytology (NOTE) INTERPRETATION Vaginal material, (ThinPrep vial, Imaging-assisted review): Specimen Adequacy: Satisfactory for evaluation. Descriptive Diagnosis: Negative for intraepithelial lesion or malignancy. Warehouse Trainer: CLARK Delacruz(ASCP) Electronically Signed Out zackary/09/07/2021 Source: A: Vaginal material, (ThinPrep vial, Imaging-assisted review) Clinical History Hysterectomy Surgery: Salpingostomy; Ovary removal Z12.4 Encounter for screening for malignant neoplasm of cervix GYNECOLOGIC CYTOLOGY REPORT Patient Name: KARINA DE OLIVEIRA [facility] Rec: [id number] Path Number: [id number] [facility] Life[employer] CONSULTING PATHOLOGISTS [facility] ANATOMIC PATHOLOGY [address] [place] [address]. [place], [place] [address] Normal [facility] Comment on above: Performed By: #### P PPVP #### [facility] [address] [place] [id number] Pouncer: Luca Cummins MD CBC AUTO DIFFon 08-09-2021 BASO # 0.1 103/ul Normal 0.0-0.1 [facility] [place] [facility] Comment on above: Performed By: #### C BC #### [facility] [address] [place] [address] [address] Ricky Valenzuela Basophils/100 WBC (Bld) 0.8 % Normal 0.2-2.0 [facility] [place] [facility] Comment on above: Performed By: #### C BC #### [facility] [address] [place] [address] Dr. Ricky Valenzuela EO # 0.2 103/ul Normal 0.0-0.7 [facility] [place] [facility] Comment on above: Performed By: #### C BC #### [facility] [address] [place] [address] Dr. Ricky Valenzuela Eosinophils/100 WBC (Bld) 2.1 % Normal 0.9-7.0 [facility] [place] [facility] Comment on above: Performed By: #### C BC #### [facility] [address] [place] [address] Dr. Ricky Valenzuela Erythrocyte distribution width (RBC) [Ratio] 15.2 % Critically high 11.0-15.0 [facility] Comment on above: Performed By: #### C BC #### [facility] [address] [place] [address] Dr. Ricky Valenzuela Hematocrit (Bld) [Volume fraction] 41.5 % Normal 36.0-48.0 [facility] Comment on above: Performed By: #### C BC #### [facility] [address] [place] [address] Dr. Ricky Valenzuela Hemoglobin (Bld) [Mass/Vol] 13.5 g/dL Normal 12.0-16.0 [facility] Comment on above: Performed By: #### C BC #### [facility] [address] [place] [address] Dr. Ricky Valenzuela IG # 0.42 10e3/ul Critically high 0.00-0.03 [facility] Comment on above: Performed By: #### C BC #### [facility] [address] [place] [address] Dr. Ricky Vlaenzuela IG % 3.8 % Critically high 0.0-0.5 [facility] Comment on above: Performed By: #### C BC #### [facility] [address] [place] [address] Dr. Ricky Valenzuela LYMPH # 3.3 103/ul Normal 1.2-3.8 [facility] Comment on above: Performed By: #### C BC #### [facility] [address] [place] [address] Dr. Ricky Valenzuela Lymphocytes/100 WBC (Bld) 29.1 % Normal 20.5-60.0 [facility] Comment on above: Performed By: #### C BC #### [facility] [address] [place] [address] Dr. Ricky Valenzuela MANUAL DIFF REQ NO Normal [facility] Comment on above: Performed By: #### C BC #### [facility] [address] [place] [address] Dr. Ricky Valenzuela MCH (RBC) [Entitic mass] 32.4 pg Normal 26.7-34.0 [facility] Comment on above: Performed By: #### C BC #### [facility] [address] [place] [address] Dr. Ricky Valenzuela MCHC (RBC) [Mass/Vol] 32.5 g/dL Normal 29.9-35.2 [facility] Comment on above: Performed By: #### C BC #### [facility] [address] [place] [address] Dr. Ricky Valenzuela MCV (RBC) [Entitic vol] 99.5 fL Critically high 81.0-99.0 [facility] Comment on above: Performed By: #### C BC #### [facility] [address] [place] [address] Dr. Ricky Valenzuela MONO # 0.8 103/ul Normal 0.3-0.8 [facility] Comment on above: Performed By: #### C BC #### [facility] [address] [place] [address] Dr. Ricky Valenzuela Monocytes/100 WBC (Bld) 7.5 % Normal 1.7-12.0 [facility] Comment on above: Performed By: #### C BC #### [facility] [address] [place] [address] Dr. Ricky Valenzuela NEUT # 6.3 103/ul Normal 1.4-6.5 [facility] Comment on above: Performed By: #### C BC #### [facility] [address] [place] [address] Dr. Ricky Valenzuela Neutrophils/100 WBC (Bld) 56.7 % Normal 43.0-75.0 [facility] Comment on above: Performed By: #### C BC #### [facility] [address] [place] [address] Dr. Ricky Valenzuela Platelet mean volume (Bld) [Entitic vol] 9.8 fL Normal 9.5-13.5 [facility] Comment on above: Performed By: #### C BC #### [facility] [address] [place] [address] Dr. Ricky Valenzuela PLT 265 103/ul Normal 150-450 [facility] Comment on above: Performed By: #### C BC #### [facility] [address] [place] [address] Dr. Ricky Valenzuela RBC 4.17 106/ul Critically low 4.20-5.40 [facility] Comment on above: Performed By: #### C BC #### [facility] [address] [place] [address] Dr. Ricky Valenzuela WBC 11.2 103/ul Critically high 4.0-11.0 [facility] Comment on above: Performed By: #### C BC #### [facility] [address] [place] [address] Dr. Ricky Valenzuela GLYCOHEMOGLOBIN A1Con 2021 ADA RECOMMENDATION SEE BELOW Normal [facility] Comment on above: Result Comment: ADA RECOMMENDED LIMIT 4.0 - 6.0 ADA THERAPEUTIC TARGET < 7.0 ACTION SUGGESTED > 7.0 Performed By: #### A 1C ####[facility] [id number] [id number]. Ricky Valenzuela Glucose [Mass/Vol] 183 mg/dL Normal [facility] Comment on above: Performed By: #### A 1C ####[facility] [id number] [id number]. Ricky Valenzuela HbA1c (Bld) [Mass fraction] 8.0 % Critically high 4.5-6.2 [facility] Comment on above: Performed By: #### A 1C ####[facility] [id number] [id number]. Ricky Valenzuela LIPID PROFILEon 08-09-2021 CHOL-HDL RATIO NORM SEE BELOW Normal [facility] Comment on above: Result Comment: 3.3 - 4.4 LOW RISK 4.4 - 7.1 AVERAGE RISK 7.1 - 11.0 MODERATE RISK >11.0 HIGH RISK Performed By: #### C MP, LIPID #### [facility] [address] [address] [address] Ricky Valenzuela Cholesterol [Mass/Vol] 239 mg/dL Critically high <=200 [facility] Comment on above: Performed By: #### C MP, LIPID #### [facility] [address] [address] [address] Ricky Valenzuela Cholesterol in HDL [Mass/Vol] 36 mg/dL Critically low 40-60 [facility] Comment on above: Performed By: #### C MP, LIPID #### [facility] [address] [address] [address] Ricky Valenzuela Cholesterol in LDL [Mass/Vol] 164.2 mg/dL Normal [facility] Comment on above: Performed By: #### C MP, LIPID #### [facility] [address] [address] [address] Ricky Valenzuela Cholesterol.total/Ch olesterol in HDL [Mass ratio] 6.6 {ratio} Normal [facility] Comment on above: Performed By: #### C MP, LIPID #### [facility] [address] [address] [address] Ricky Valenzuela HDL NORMAL > or = 60 mg/dl - LO W CARDIOVASCULAR RISK <40 mg/dl - HIGH CARDIOVASCULAR RISK Normal [facility] Comment on above: Performed By: #### C MP, LIPID #### [facility] [address] [address] [address] Ricky Valenzuela LDL CALC NORMAL SEE BELOW Normal [facility] Comment on above: Result Comment: <100 mg/dl OPTIMAL 100 - 129 mg/dl NEAR OR ABOVE OPTIMAL 130 - 159 mg/dl BORDERLINE HIGH 160 - 189 mg/dl HIGH >190 mg/dl VERY HIGH Performed By: #### C MP, LIPID #### [facility] [address] [address] [address] Ricky Valenzuela Triglyceride [Mass/Vol] 194 mg/dL Critically high <=150 [facility] Comment on above: Performed By: #### C MP, LIPID #### [facility] [address] [address] [address] Ricky Valenzuela VLDL CALC 38.8 mg/dL Normal [facility] Comment on above: Performed By: #### C MP, LIPID #### [facility] [address] [address] [address] Ricky Valenzuela MICROALBUMIN, RAND URon 07-13 mALB 13.1 mg/L Normal <=30.0 [facility] Comment on above: Performed By: #### M ALBR ####[facility] [id number] [id number]. Ricky Valenzuela PROF 14(COMP METB)on 022 Albumin [Mass/Vol] 3.3 g/dL Critically low 3.4-5.0 [facility] Comment on above: Performed By: #### C MP, LIPID #### [facility] [address] [address] [address] Ricky Valenzuela Albumin/Globulin [Mass ratio] 0.8 {ratio} Normal [facility] Comment on above: Performed By: #### C MP, LIPID #### [facility] [address] [address] [address] Ricky Valenzuela ALP [Catalytic activity/Vol] 93 U/L Normal 46-116 [facility] Comment on above: Performed By: #### C MP, LIPID #### [facility] [address] [address] [address] Ricky Valenzuela ALT [Catalytic activity/Vol] 37 U/L Normal 14-59 [facility] Comment on above: Performed By: #### C MP, LIPID #### [facility] [address] [address] [address] iRcky Valenzuela Anion gap [Moles/Vol] 10.9 mmol/L Normal [facility] Comment on above: Performed By: #### C MP, LIPID #### [facility] [address] [address] [address] Ricky Valenzuela AST [Catalytic activity/Vol] 10 U/L Critically low 15-37 [facility] Comment on above: Performed By: #### C MP, LIPID #### [facility] [address] [address] [address] Ricky Valenzuela Bilirubin [Mass/Vol] 0.2 mg/dL Normal 0.2-1.0 [facility] Comment on above: Performed By: #### C MP, LIPID #### [facility] [address] [address] [address] Ricky Valenzuela Calcium [Mass/Vol] 9.0 mg/dL Normal 8.5-10.1 [facility] Comment on above: Performed By: #### C MP, LIPID #### [facility] [address] [address] [address] Ricky Valenzuela Chloride [Moles/Vol] 100 mmol/L Normal 98-107 [facility] Comment on above: Performed By: #### C MP, LIPID #### [facility] [address] [address] [address] Ricky Valenzuela CO2 [Moles/Vol] 32.2 mmol/L Critically high 21.0-32.0 [facility] Comment on above: Performed By: #### C MP, LIPID #### [facility] [address] [address] [address] Ricky Valenzuela Creatinine [Mass/Vol] 0.95 mg/dL Normal 0.55-1.02 [facility] Comment on above: Performed By: #### C MP, LIPID #### [facility] [address] [address] [address] Ricky Valenzuela EGFR-AF TURKISH >60 Normal >=60 [facility] Comment on above: Performed By: #### C MP, LIPID #### [facility] [address] [address] [address] Ricky Valenzuela EGFR-NON AF TURKISH >60 Normal >=60 [facility] Comment on above: Performed By: #### C MP, LIPID #### [facility] [address] [place] [address] Dr. Ricky Valenzuela Globulin (S) [Mass/Vol] 4.2 g/dL Normal [facility] Comment on above: Performed By: #### C MP, LIPID #### [facility] [address] [place] [address] Dr. Ricky Valenzuela Glucose [Mass/Vol] 200 mg/dL Critically high 74-106 [facility] Comment on above: Performed By: #### C MP, LIPID #### [facility] [address] [place] [address] Dr. Ricky Valenzuela Potassium [Moles/Vol] 4.1 mmol/L Normal 3.5-5.1 [facility] Comment on above: Performed By: #### C MP, LIPID #### [facility] [address] [place] [address] Dr. Ricky Valenzuela Protein [Mass/Vol] 7.5 g/dL Normal 6.4-8.2 [facility] Comment on above: Performed By: #### C MP, LIPID #### [facility] [address] [place] [address] Dr. Ricky Valenzuela Sodium [Moles/Vol] 139 mmol/L Normal 136-145 [facility] Comment on above: Performed By: #### C MP, LIPID #### [facility] [address] [address] [address] Ricky Valenzuela Urea nitrogen [Mass/Vol] 13.0 mg/dL Normal 7.0-18.0 [facility] Comment on above: Performed By: #### C MP, LIPID #### [facility] [address] [address] [address] Ricky Valenzuela Urea nitrogen/Creatinine [Mass ratio] 13.7 mg/mg Normal [facility] Comment on above: Performed By: #### C MP, LIPID #### [facility] [address] [address] [address] Ricky Valenzuela POINT OF CARE GLUCOSEon 05-2 Glucose [Mass/Vol] 176 mg/dL Critically high 74-106 [facility] Comment on above: Performed By: #### P OCGLUC #### [facility] [address] [address] [address] Ricky Valenzuela Vital Signs Date Time Vital Sign Value Performing Clinician Facility 05-28-2024 13:16-0400 Body height 154.94 cm [facility] 05-28-2024 13:16-0400 Body mass index (BMI) [Ratio] 39.4 kg/m2 [facility] 05-28-2024 13:16-0400 Body weight 94.8 kg [facility] 05-19-2024 11:10-0400 Body height 157.5 cm Ameena Vera FINANCIAL SERVICES SALES REPRESENTATIVE Work Phone: [facility] 05-19-2024 11:10-0400 Body mass index (BMI) [Ratio] 39.03 kg/m2 Ameena Vera FINANCIAL SERVICES SALES REPRESENTATIVE Work Phone: [facility] 05-19-2024 11:10-0400 Body temperature 98.29 [degF] Ameena Vera FINANCIAL SERVICES SALES REPRESENTATIVE Work Phone: [facility] 05-19-2024 11:10-0400 Body weight 96.8 kg Ameena Vera FINANCIAL SERVICES SALES REPRESENTATIVE Work Phone: [facility] 05-19-2024 11:10-0400 Diastolic blood pressure 80 mm[Hg] Ameena Aichholz FINANCIAL SERVICES SALES REPRESENTATIVE Work Phone: [facility] 05-19-2024 11:10-0400 Heart rate 91 /min Ameena Sheffieldz FINANCIAL SERVICES SALES REPRESENTATIVE Work Phone: [facility] 05-19-2024 11:10-0400 Respiratory rate 18 /min Ameena Sheffieldz FINANCIAL SERVICES SALES REPRESENTATIVE Work Phone: [facility] 05-19-2024 11:10-0400 SaO2% (BldA) [Mass fraction] 96 % Ameena Sheffieldz FINANCIAL SERVICES SALES REPRESENTATIVE Work Phone: [facility] 05-19-2024 11:10-0400 Systolic blood pressure 116 mm[Hg] Ameena Sheffieldz FINANCIAL SERVICES SALES REPRESENTATIVE Work Phone: [facility] 04-21-2024 13:08-0400 Body height 157.5 cm Za Gillmor FINANCIAL SERVICES SALES REPRESENTATIVE Work Phone: [facility] 04-21-2024 13:08-0400 Body mass index (BMI) [Ratio] 39.51 kg/m2 Za Gillmor FINANCIAL SERVICES SALES REPRESENTATIVE Work Phone: [facility] 04-21-2024 13:08-0400 Body weight 97.98 kg Za Gillmor FINANCIAL SERVICES SALES REPRESENTATIVE Work Phone: [facility] 04-21-2024 13:08-0400 Diastolic blood pressure 86 mm[Hg] Za Gillmor FINANCIAL SERVICES SALES REPRESENTATIVE Work Phone: [facility] 04-21-2024 13:08-0400 Heart rate 96 /min Za Gillmor FINANCIAL SERVICES SALES REPRESENTATIVE Work Phone: [facility] 04-21-2024 13:08-0400 SaO2% (BldA) [Mass fraction] 93 % Za Gillmor FINANCIAL SERVICES SALES REPRESENTATIVE Work Phone: [facility] 04-21-2024 13:08-0400 Systolic blood pressure 148 mm[Hg] Za Gillmor FINANCIAL SERVICES SALES REPRESENTATIVE Work Phone: [facility] 03-30-2024 09:40-0500 Body height 157.5 cm Sonam Drake FINANCIAL SERVICES SALES REPRESENTATIVE Work Phone: [facility] 03-30-2024 09:40-0500 Body mass index (BMI) [Ratio] 39.51 kg/m2 Sonam Drake FINANCIAL SERVICES SALES REPRESENTATIVE Work Phone: [facility] 03-30-2024 09:40-0500 Body temperature 97.3 [degF] Sonam Drake FINANCIAL SERVICES SALES REPRESENTATIVE Work Phone: [facility] 03-30-2024 09:40-0500 Body weight 97.98 kg Sonam Drake FINANCIAL SERVICES SALES REPRESENTATIVE Work Phone: [facility] 03-30-2024 09:40-0500 Diastolic blood pressure 74 mm[Hg] Sonam Drake FINANCIAL SERVICES SALES REPRESENTATIVE Work Phone: [facility] 03-30-2024 09:40-0500 Heart rate 76 /min Sonam Drake FINANCIAL SERVICES SALES REPRESENTATIVE Work Phone: [facility] 03-30-2024 09:40-0500 Respiratory rate 16 /min Sonam Drake FINANCIAL SERVICES SALES REPRESENTATIVE Work Phone: [facility] 03-30-2024 09:40-0500 SaO2% (BldA) [Mass fraction] 98 % Sonam Drake FINANCIAL SERVICES SALES REPRESENTATIVE Work Phone: [facility] 03-30-2024 09:40-0500 Systolic blood pressure 130 mm[Hg] Sonam Drake FINANCIAL SERVICES SALES REPRESENTATIVE Work Phone: [facility] 03-03-2024 10:13-0500 Body height 157.5 cm Sonam Drake FINANCIAL SERVICES SALES REPRESENTATIVE Work Phone: [facility] 03-03-2024 10:13-0500 Body mass index (BMI) [Ratio] 39.51 kg/m2 Sonam Drake FINANCIAL SERVICES SALES REPRESENTATIVE Work Phone: [facility] 03-03-2024 10:13-0500 Body temperature 97.2 [degF] Sonam Drake FINANCIAL SERVICES SALES REPRESENTATIVE Work Phone: [facility] 03-03-2024 10:13-0500 Body weight 97.98 kg Sonam Drake FINANCIAL SERVICES SALES REPRESENTATIVE Work Phone: [facility] 03-03-2024 10:13-0500 Diastolic blood pressure 76 mm[Hg] Sonam Drake FINANCIAL SERVICES SALES REPRESENTATIVE Work Phone: [facility] 03-03-2024 10:13-0500 Heart rate 84 /min Sonam Drake FINANCIAL SERVICES SALES REPRESENTATIVE Work Phone: [facility] 03-03-2024 10:13-0500 Respiratory rate 16 /min Sonam Drake FINANCIAL SERVICES SALES REPRESENTATIVE Work Phone: [facility] 03-03-2024 10:13-0500 SaO2% (BldA) [Mass fraction] 96 % Sonam Drake FINANCIAL SERVICES SALES REPRESENTATIVE Work Phone: [facility] 03-03-2024 10:13-0500 Systolic blood pressure 120 mm[Hg] Sonam Drake FINANCIAL SERVICES SALES REPRESENTATIVE Work Phone: [facility] 12-31-2023 10:06-0500 Body height 157.5 cm Sivan [...] 97 % Sivan Solo DO Work Phone: [place] [address]-19-2024 10:06-0500 Systolic blood pressure 118 mm[Hg] Sivan Villegas DO Work Phone: [facility] 12-30-2023 10:46-0500 Body mass index (BMI) [Ratio] 40.06 kg/m2 Sonam Drake FINANCIAL SERVICES SALES REPRESENTATIVE Work Phone: [facility] 12-30-2023 10:46-0500 Body weight 99.34 kg Sonam Drake FINANCIAL SERVICES SALES REPRESENTATIVE Work Phone: [facility] 12-30-2023 10:46-0500 Diastolic blood pressure 74 mm[Hg] Sonam Drake FINANCIAL SERVICES SALES REPRESENTATIVE Work Phone: [facility] 12-30-2023 10:46-0500 Heart rate 97 /min Sonam Drake FINANCIAL SERVICES SALES REPRESENTATIVE Work Phone: [facility] 12-30-2023 10:46-0500 SaO2% (BldA) [Mass fraction] 98 % Sonam Drake FINANCIAL SERVICES SALES REPRESENTATIVE Work Phone: [facility] 12-30-2023 10:46-0500 Systolic blood pressure 98 mm[Hg] Sonam Drake FINANCIAL SERVICES SALES REPRESENTATIVE Work Phone: [facility] 10-03-2023 10:07-0400 Body height 157.5 cm Sonam Drake FINANCIAL SERVICES SALES REPRESENTATIVE Work Phone: [facility] 10-03-2023 10:07-0400 Body mass index (BMI) [Ratio] 39.32 kg/m2 Sonam Drake FINANCIAL SERVICES SALES REPRESENTATIVE Work Phone: [facility] 10-03-2023 10:07-0400 Body temperature 97.5 [degF] Sonam Drake FINANCIAL SERVICES SALES REPRESENTATIVE Work Phone: [facility] 10-03-2023 10:07-0400 Body weight 97.52 kg Sonam Drake FINANCIAL SERVICES SALES REPRESENTATIVE Work Phone: [facility] 10-03-2023 10:07-0400 Diastolic blood pressure 70 mm[Hg] Sonam Riverpatrick FINANCIAL SERVICES SALES REPRESENTATIVE Work Phone: [facility] 10-03-2023 10:07-0400 Heart rate 107 /min Sonam Riverpatrick FINANCIAL SERVICES SALES REPRESENTATIVE Work Phone: [facility] Comment on above: 97% O2 10-03-2023 10:07-0400 Systolic blood pressure 90 mm[Hg] Sonam Riverpatrick FINANCIAL SERVICES SALES REPRESENTATIVE Work Phone: [facility] 01-18-2023 09:10-0500 Body height 156.21 cm Elle Dejesusmond Other [email or web address] Other 01-18-2023 09:10-0500 Body mass index (BMI) [Ratio] 42.82 kg/m2 Elle Ruthie Other [email or web address] Other 01-18-2023 09:10-0500 Body temperature 98.2 [degF] Elle Ruthie Other [email or web address] Other 01-18-2023 09:10-0500 Body weight 104.51 kg Elle Ruthie Other [email or web address] Other 01-18-2023 09:10-0500 Diastolic blood pressure 92 mm[Hg] Elle Ruthie Other [email or web address] Other 01-18-2023 09:10-0500 Respiratory rate 18 /min Elle Ruthie Other [email or web address] Other 01-18-2023 09:10-0500 SaO2% (BldA) [Mass fraction] 97 % Elle Ruthie Other [email or web address] Other 01-18-2023 09:10-0500 Systolic blood pressure 145 mm[Hg] Elle Dejesusmond Other [employer] [employer] Other Encounters Encounter Date Encounter Type Care Provider Facility Start: 06-23-2024 End: 06-23-2024 Refill Ameena Vera FINANCIAL SERVICES SALES REPRESENTATIVE Work Phone: [facility] Comment on above: Diabetic polyneuropa thy associated with type 2 diabetes mellitus ([facility]) Start: 06-22-2024 End: 06-22-2024 ambulatory Tanya Crowley MD Facility:[facility] Start: 06-11-2024 End: 06-11-2024 Refill Ameena Vera FINANCIAL SERVICES SALES REPRESENTATIVE Work Phone: [facility] Comment on above: Acute non-recurrent sinusitis of other sinus (Primary Dx) Start: 06-03-2024 End: 06-03-2024 Orders Only Ameena Vera FINANCIAL SERVICES SALES REPRESENTATIVE Work Phone: [facility] Comment on above: Hypercalcemia (Prima ry Dx); Low serum parathyroid hormone (PTH) Start: 05-28-2024 End: 05-28-2024 Patient encounter procedure [facility] Work Phone: Start: 05-28-2024 End: 05-28-2024 Patient encounter procedure [facility] Start: 05-28-2024 End: 05-28-2024 ambulatory Lui Banks II Facility:[facility] Start: 05-22-2024 End: 05-22-2024 Orders Only Ameenaovidio Vera FINANCIAL SERVICES SALES REPRESENTATIVE Work Phone: [facility] Comment on above: Hypercalcemia (Prima ry Dx) Start: 05-21-2024 End: 05-21-2024 Clinisync Result Encounter Ameena Vera FINANCIAL SERVICES SALES REPRESENTATIVE Work Phone: [facility] External Department Unsolicited Start: 05-21-2024 End: 05-21-2024 Clinisync Result Encounter Ameenaovidio Vera FINANCIAL SERVICES SALES REPRESENTATIVE Work Phone: [facility] External Department Unsolicited Start: 05-19-2024 End: 05-19-2024 Bamboo flowsheet Ameena Vera FINANCIAL SERVICES SALES REPRESENTATIVE Work Phone: [facility] Start: 05-19-2024 End: 05-19-2024 Bamboo flowsheet Ameena Chuy FINANCIAL SERVICES SALES REPRESENTATIVE Work Phone: [facility] Start: 05-19-2024 End: 05-19-2024 ambulatory AMEENA HANLEYJANEENSonny Not Available Start: 05-19-2024 End: 05-19-2024 Office outpatient visit 25 minutes Ameena Vera FINANCIAL SERVICES SALES REPRESENTATIVE Work Phone: [facility] Comment on above: Type 2 diabetes cory itus with diabetic microalbuminuria, without long-term current use of insulin ([facility]) (Primary Dx); Morbid (severe) obesity due to excess calories ([facility]); Other hyperlipidemia; Body mass index (BMI) 39.0-39.9, adult; JANETT (obstructive sleep apnea); Bilateral lower extremity edema; Migraine with aura and without status migrainosus, not intractable ([facility]); Cigarette nicotine dependence without complication; Hypercalcemia; Essential hypertension; Elevated blood uric acid level; Lumbar back pain; Gastroesophageal reflux disease without esophagitis; Chronic gout of multiple sites, unspecified cause; Acute pain of right knee; Diabetic polyneuropathy associated with type 2 diabetes mellitus ([facility]) Start: 05-06-2024 End: 05-06-2024 Tomasz Chandler MD Work Phone: [facility] Comment on above: Bilateral lower extr emity edema (Primary Dx) Start: 04-21-2024 End: 04-21-2024 Bamboo flowsheet Za Wilkerson FINANCIAL SERVICES SALES REPRESENTATIVE Work Phone: [facility] Start: 04-21-2024 End: 04-21-2024 Bamboo flowsheet Za Wilkerson FINANCIAL SERVICES SALES REPRESENTATIVE Work Phone: [facility] Start: 04-21-2024 End: 04-21-2024 ambulatory ZA WILKERSON Not Available Start: 04-21-2024 End: 04-21-2024 Office outpatient visit 25 minutes Za Wilkerson FINANCIAL SERVICES SALES REPRESENTATIVE Work Phone: [facility] Comment on above: JANETT (obstructive sle ep apnea) (Primary Dx); Hypersomnia; Snoring; Primary insomnia; Tobacco abuse Start: 03-30-2024 End: 03-30-2024 Bamboo flowsheet Sonam Drake FINANCIAL SERVICES SALES REPRESENTATIVE Work Phone: [facility] Start: 03-30-2024 End: 03-30-2024 Bamboo flowsheet Sonamyazmin Valenciatrick FINANCIAL SERVICES SALES REPRESENTATIVE Work Phone: [facility] Start: 03-30-2024 End: 03-30-2024 Office outpatient visit 15 minutes Alicia Monroy MD Work Phone: [facility] Comment on above: Hidradenitis suppura tiva (Primary Dx); Lentigines; Melanocytic nevus of trunk; Congenital non-neoplastic nevus; History of basal cell carcinoma Start: 03-30-2024 End: 03-30-2024 Refill Jolly Castaneda MA [facility] Comment on above: Type 2 diabetes cory itus with diabetic microalbuminuria, without long-term current use of insulin ([facility]) Start: 03-30-2024 End: 03-30-2024 Office outpatient visit 15 minutes Sonam Drake FINANCIAL SERVICES SALES REPRESENTATIVE Work Phone: [facility] Comment on above: Type 2 diabetes cory itus with diabetic microalbuminuria, without long-term current use of insulin (CMS/[facility]) (Primary Dx); Essential hypertension; Other hyperlipidemia (CMS/[facility]); JANETT (obstructive sleep apnea); Type 2 diabetes mellitus without complication, without long-term current use of insulin ([facility]) Start: 03-18-2024 End: 03-18-2024 Clinisync Result Encounter Generic External Data Provider [facility] External Department Unsolicited Start: 03-18-2024 End: 03-18-2024 Clinisync Result Encounter Generic External Data Provider [facility] External Department Unsolicited Start: 03-16-2024 End: 03-16-2024 Refill Sonam Drake FINANCIAL SERVICES SALES REPRESENTATIVE Work Phone: [facility] Comment on above: Gastroesophageal ref lux disease without esophagitis Start: 03-09-2024 End: 03-09-2024 Refill Sonam Drake FINANCIAL SERVICES SALES REPRESENTATIVE [facility] Phone: [facility] Comment on above: Osteoporosis, unspec ified osteoporosis type, unspecified pathological fracture presence ([facility]) Start: 03-03-2024 End: 03-03-2024 Bamboo flowsheet Sonam Drake FINANCIAL SERVICES SALES REPRESENTATIVE Work Phone: [facility] FM Start: 03-03-2024 End: 03-03-2024 Bamboo flowsheet Sonam Drake FINANCIAL SERVICES SALES REPRESENTATIVE Work Phone: [facility] CW FM Start: 03-03-2024 End: 03-03-2024 ambulatory SONAM DRAKE Not Available Start: 03-03-2024 End: 03-03-2024 Office outpatient visit 10 minutes Sonam Drake FINANCIAL SERVICES SALES REPRESENTATIVE Work Phone: [facility] Comment on above: Upper respiratory in fection with cough and congestion (Primary Dx); Lumbar back pain; Migraine with aura and without status migrainosus, not intractable ([facility]); Type 2 diabetes mellitus with diabetic microalbuminuria, without long-term current use of insulin ([facility]); Diabetic polyneuropathy associated with type 2 diabetes mellitus ([facility]); Other hyperlipidemia ([facility]) Start: 01-30-2024 End: 01-30-2024 Refill Jolly Castaneda MA [facility] CW FM Comment on above: Lumbar back pain (Pr imary Dx); Type 2 diabetes mellitus with diabetic microalbuminuria, without long-term current use of insulin ([facility]) Start: 01-14-2024 End: 01-14-2024 Refill Jolly Castaneda MA [facility] Comment on above: Lumbar back pain Start: 12-31-2023 End: 12-31-2023 Clinisync Result Encounter Sonam Drake FINANCIAL SERVICES SALES REPRESENTATIVE Work Phone: [facility] External Department Unsolicited Start: 12-31-2023 End: 12-31-2023 Clinisync Result Encounter Sonam Drake FINANCIAL SERVICES SALES REPRESENTATIVE Work Phone: [facility] External Department Unsolicited Start: 12-31-2023 End: 12-31-2023 Office consultation new/estab patient 60 min Sivan Villegas DO Work Phone: [facility] [address] Comment on above: JANETT (obstructive sle ep apnea) (Primary Dx); Hypersomnia; Snoring; Primary insomnia; Tobacco abuse Start: 12-31-2023 End: 12-31-2023 ambulatory SIVAN VILLEGAS Not Available Start: 12-30-2023 End: 12-30-2023 Bamboo flowsheet Sonam Drake FINANCIAL SERVICES SALES REPRESENTATIVE Work Phone: [facility] Start: 12-30-2023 End: 12-30-2023 Bamboo flowsheet Sonam Drake FINANCIAL SERVICES SALES REPRESENTATIVE Work Phone: [facility] Start: 12-30-2023 End: 12-30-2023 Office outpatient visit 15 minutes Sonam Drake FINANCIAL SERVICES SALES REPRESENTATIVE Work Phone: [facility] Comment on above: Type 2 diabetes cory itus with diabetic microalbuminuria, without long-term current use of insulin ([facility]) (Primary Dx); Essential hypertension; Other hyperlipidemia ([facility]); Snoring; Mixed urge and stress incontinence Start: 12-30-2023 End: 12-30-2023 ambulatory SONAM DRAKE Not Available Start: 12-17-2023 End: 12-17-2023 Refill Jolly Castaneda MA [facility] Comment on above: Migraine with aura a nd without status migrainosus, not intractable ([facility]); Diabetic polyneuropathy associated with type 2 diabetes mellitus ([facility]/HCC) Start: 12-17-2023 End: 12-18-2023 Refill Sonam Drake FINANCIAL SERVICES SALES REPRESENTATIVE Work Phone: [facility] Comment on [...] 2 diabetes mellitus (CMS/HCC) Start: 10-04-2023 ambulatory Facility:[facility] Start: 10-03-2023 End: 10-03-2023 Bamboo flowsheet Sonam Drake FINANCIAL SERVICES SALES REPRESENTATIVE Work Phone: [facility] Start: 10-03-2023 End: 10-03-2023 Bamboo flowsheet Sonam Drake FINANCIAL SERVICES SALES REPRESENTATIVE Work Phone: [facility] Start: 10-03-2023 End: 10-03-2023 ambulatory SONAM DRAKE Not Available Start: 10-03-2023 End: 10-03-2023 Office outpatient visit 25 minutes Sonam Drake FINANCIAL SERVICES SALES REPRESENTATIVE Work Phone: [facility] Comment on [...] 07-04-2023 ambulatory CRISTINA FAWWAD Not Available Start: 04-30-2023 End: 04-30-2023 ambulatory [facility] Work Phone: Start: 04-30-2023 End: 04-30-2023 Patient encounter procedure [facility] Work Phone: Start: 03-21-2023 Orders Only Shaikh Maricel HOLLIS Work Phone: [facility] Comment on above: Diabetic polyneuropa thy associated with type 2 diabetes mellitus (CMS/HCC) (Primary Dx) Start: 03-19-2023 End: 03-19-2023 ambulatory Ana Luisa Curtis Other [email or web address] Other Start: 03-19-2023 Office outpatient vi sit 15 minutes Ana Luisa Curtis [facility] Start: 01-23-2023 End: 01-23-2023 ambulatory Ana Luisa Curtis Other [email or web address] Other Start: 01-23-2023 Office outpatient vi sit 15 minutes Ana Luisa Curtis [facility] Start: 01-18-2023 End: 01-18-2023 ambulatory Elle Hendricks Other [email or web address] Other Start: 01-18-2023 Office outpatient vi sit 15 minutes Elle Hendricks [facility] Start: 09-19-2022 End: 09-19-2022 ambulatory Ana Luisa Curtis Other [email or web address] Other Start: 09-19-2022 Telephone encounter Ana Luisa Curtis [facility] Start: 07-12-[address] JONATHAN EDWARDS Facili ty:[facility]1 Start: 06-07-2022 End: 06-08-[address] JONATHAN EDWARDS Facility:[facility] Start: 05-02-2022 End: 05-02-2022 ambulatory Ana Luisa Curtis Other [email or web address] Other Start: 05-02-2022 Office outpatient ne w 30 minutes Ana Luisa Curtis [facility] Start: 04-12-2022 End: 04-13-[address] JONATHAN EDWARDS Facility:[facility] Start: 03-08-2022 End: 03-09-[address] JONATHAN EDWARDS Facility:[facility] Start: 02-16-2022 End: 02-17-[address] JONATHAN EDWARDS Facility:[facility] Start: 02-09-2022 End: 02-10-[address] RICARDO HOLM . Facility:[facility] Start: 11-16-2021 End: 11-17-[address] JONATHAN EDWARDS Facility:[facility] Start: 11-01-2021 End: 11-02-2021 ambulatory CRYS PIERCE . Facility:[facility]1 Start: 08-30-2021 End: 08-31-2021 ambulatory RADHA BARCLAY [facility] Start: 08-30-2021 End: 08-30-2021 Subsequent hospital visit by physician Sr Edwards DO Work Phone: [facility] Comment on above: Routine cervical sme ar Start: 08-16-2021 Encounter for genera l adult medical examination without abnormal findings DR RICARDO HOLM . [facility] Start: 08-09-2021 End: 08-10-2021 Encounter for general adult medical examination without abnormal findings DR RICARDO HOLM . Facility:[facility] Start: 08-09-2021 End: 08-10-[address] RICARDO HOLM . Facility:[facility] Start: 07-19-2021 End: 07-20-2021 ambulatory CRYS PIERCE . Facility:[facility]1 Start: 07-05-2021 End: 07-06-2021 [facility] Start: 07-04-2021 End: 07-04-[address] RICARDO HOLM . Facility:[facility]1 Start: 06-20-2021 End: 06-21-[address] RICARDO HOLM . Facility:[facility]1 Procedures Date Procedure Procedure Detail Performing Clinician Start: 05-28-2024 Plain radiography of pelvis Start: 05-28-2024 X-ray of right knee, four views Start: 05-21-2024 Radiologic examinati on knee 3 views Ameena Vera FINANCIAL SERVICES SALES REPRESENTATIVE Work Phone: Start: 05-21-2024 ALL CBC WITH AUTO DIFF Ameena Vera FINANCIAL SERVICES SALES REPRESENTATIVE Work Phone: Start: 05-19-2024 Hemoglobin glycosyla anne a1c Ameena Chuy FINANCIAL SERVICES SALES REPRESENTATIVE Work Phone: Start: 03-30-2024 Hemoglobin glycosyla anne a1c Sonam Drake FINANCIAL SERVICES SALES REPRESENTATIVE Work Phone: Start: 03-18-2024 MM TOMOSYNTHESIS SCR EENING BI Generic External Data Provider Start: 03-18-2024 Mammography Generic Pr ovider Start: 12-31-2023 ALL CBC WITH AUTO DIFF Sonam Drake FINANCIAL SERVICES SALES REPRESENTATIVE Work Phone: Start: 03-20-2023 Mammography Shaikh Marie [...] colon [facility] Start: 05-21-2025 Urine screening for protein Diabetes: Urine Protein Screening [facility] Start: 03-30-2025 End: 03-30-2025 Patient encounter procedure 03/30/2025 11:15 AM EST Office Visit [facility] [address] [place] [address] Alicia Monroy MD [address] [place], [place] [id number] [facility] Start: 03-18-2025 Screening for malign ant neoplasm of breast Mammogram [facility] Start: 12-30-2024 Urine screening for protein Diabetes: Urine Protein Screening [facility] Start: 11-18-2024 Hemoglobin A1c measurement Diabetes: Hemoglobin A1C [facility] Start: 10-26-2024 End: 10-26-2024 Patient encounter procedure 10/26/2024 1:20 PM EDT Office Visit [facility] [address] [place] [address] Za Wilkerson NP [address] [place], [place] [facility] Start: 10-12-2024 Influenza vaccination Influenz a Vaccine (Season Ended) [facility] Start: 09-27-2024 Hemoglobin A1c measurement Diabetes: Hemoglobin A1C [facility] Start: 08-30-2024 Screening for malign ant neoplasm of cervix [facility] Start: 08-20-2024 End: 08-20-2024 Patient encounter procedure 08/20/2024 10:30 AM EDT Office Visit [facility] [address] [place] [address] Ameena Vera, FINANCIAL SERVICES SALES REPRESENTATIVE [address] [place] [address] [facility] Start: 07-26-2024 Urine screening for protein Diabetes: Urine Protein Screening [facility] Start: 07-03-2024 End: 06-03-2025 25-hydroxyvitamin D3 [Mass/volume] in Serum or Plasma Vitamin D 25 hydroxy Lab Routine Hypercalcemia Expected: 07/03/2024 (Approximate), Expires: 06/03/2025 [facility] Comment on above: Expected: 07/03/2024 (Approximate), Expires: 06/03/2025 Start: 07-03-2024 End: 06-03-2025 Basic metabolic 1998 panel - Serum or Plasma Basic metabolic panel Lab Routine Hypercalcemia Low serum parathyroid hormone (PTH) Expected: 07/03/2024 (Approximate), Expires: 06/03/2025 [facility] Comment on above: Expected: 07/03/2024 (Approximate), Expires: 06/03/2025 Start: 07-03-2024 End: 06-03-2025 Parathyrin.intact [Mass/volume] in Serum or Plasma PTH, intact Lab Routine Low serum parathyroid hormone (PTH) Expected: 07/03/2024 (Approximate), Expires: 06/03/2025 [facility] Work Phone: Comment on above: Expected: 07/03/2024 (Approximate), Expires: 06/03/2025 Start: 06-25-2024 End: 06-25-2024 Patient encounter procedure [facility] Start: 05-22-2024 End: 05-22-2025 Parathyrin.intact [Mass/volume] in Serum or Plasma PTH, intact Lab Routine Hypercalcemia Expected: 05/22/2024 (Approximate), Expires: 05/22/2025 [facility] Work Phone: Comment on above: Expected: 05/22/2024 (Approximate), Expires: 05/22/2025 Start: 05-19-2024 End: 05-19-2025 25-hydroxyvitamin D3 [Mass/volume] in Serum or Plasma Vitamin D 25 hydroxy Lab Routine Hypercalcemia Expected: 05/19/2024 (Approximate), Expires: 05/19/2025 [facility] Comment on above: Expected: 05/19/2024 (Approximate), Expires: 05/19/2025 Start: 05-19-2024 End: 05-19-2025 CBC W Auto Differential panel - Blood CBC and differential Lab Routine JANETT (obstructive sleep apnea) Cigarette nicotine dependence without complication Expected: 05/19/2024 (Approximate), Expires: 05/19/2025 [facility] Comment on above: Expected: 05/19/2024 (Approximate), Expires: 05/19/2025 Start: 05-19-2024 End: 05-19-2025 Comprehensive metabolic 2000 panel - Serum or Plasma Comprehensive metabolic panel Lab Routine Other hyperlipidemia Bilateral lower extremity edema Type 2 diabetes mellitus with diabetic microalbuminuria, without long-term current use of insulin ([facility]) Hypercalcemia Essential hypertension Expected: 05/19/2024 (Approximate), Expires: 05/19/2025 [facility] Comment on above: Expected: 05/19/2024 (Approximate), Expires: 05/19/2025 Start: 05-19-2024 End: 05-19-2025 Lipid 1996 panel - Serum or Plasma Lipid panel Lab Routine Other hyperlipidemia Expected: 05/19/2024 (Approximate), Expires: 05/19/2025 [facility] Work Phone: Comment on above: Expected: 05/19/2024 (Approximate), Expires: 05/19/2025 Start: 05-19-2024 End: 05-19-2025 Microalbumin/Creatinine panel in random Urine Microalbumin / creatinine, urine ratio Lab Routine Type 2 diabetes mellitus with diabetic microalbuminuria, without long-term current use of insulin ([facility]) Essential hypertension Expected: 05/19/2024 (Approximate), Expires: 05/19/2025 [facility] Comment on above: Expected: 05/19/2024 (Approximate), Expires: 05/19/2025 Start: 05-19-2024 End: 05-19-2025 Parathyrin.intact [Mass/volume] in Serum or Plasma PTH, intact Lab Routine Hypercalcemia Expected: 05/19/2024 (Approximate), Expires: 05/19/2025 [facility] Comment on above: Expected: 05/19/2024 (Approximate), Expires: 05/19/2025 Start: 05-19-2024 End: 05-19-2025 Urate [Mass/volume] in Serum or Plasma Uric acid Lab Routine Elevated blood uric acid level Expected: 05/19/2024 (Approximate), Expires: 05/19/2025 [facility] Comment on above: Expected: 05/19/2024 (Approximate), Expires: 05/19/2025 Start: 05-19-2024 End: 05-19-2025 Urinalysis complete panel - Urine Urinalysis with reflex microscopic (clean catch) Lab Routine Type 2 diabetes mellitus with diabetic microalbuminuria, without long-term current use of insulin ([facility]) Cigarette nicotine dependence without complication Essential hypertension Elevated blood uric acid level Expected: 05/19/2024 (Approximate), Expires: 05/19/2025 [facility] Comment on above: Expected: 05/19/2024 (Approximate), Expires: 05/19/2025 Start: 05-19-2024 End: 05-19-2025 XR Knee - right 3 Views XR knee 3 views right Imaging Routine Acute pain of right knee Expected: 05/19/2024 (Approximate), Expires: 05/19/2025 [facility] Comment on above: Expected: 05/19/2024 (Approximate), Expires: 05/19/2025 Start: 05-19-2024 End: 05-19-2024 Patient encounter procedure 05/19/2024 11:00 AM EDT Office Visit [facility] [address] [place] [address] Ameena Vera NP [address] [place] [address] [facility] Start: 04-21-2024 End: 04-21-2024 Patient encounter procedure 04/21/2024 1:00 PM EDT Office Visit [facility] [address] [place] [phone] Za Wilkerson NP [address] [place], [place] [facility] Start: 03-30-2024 End: 03-30-2024 Patient encounter procedure 03/30/2024 11:05 AM EST Office Visit [facility] [address] [place] [address] Alicia Monroy MD [address] [place] [address] [facility] Start: 03-26-2024 End: 03-26-2024 Patient encounter procedure 03/26/2024 2:00 PM EST Office Visit [facility] [address] [place] [id number] Sonam Drake NP [address] [place] [phone] [facility] Start: 03-24-2024 End: 03-24-2024 Patient encounter procedure [facility] [address] Start: 03-20-2024 Screening for malign ant neoplasm of breast Mammogram [facility] Start: 02-27-2024 End: 02-27-2024 Patient encounter procedure 02/27/2024 11:35 AM EST Office Visit [facility] [address] [place] [address] Alicia Monroy MD [address] [place] [address] [facility] Start: 02-25-2024 End: 02-25-2024 Patient encounter procedure 02/25/2024 3:30 PM EST Office Visit [facility] [address] [place] [address] Sonam Drake NP [address] [place] [address] [facility] Start: 02-21-2024 Medicare Annual Well ness (AWV) Medicare Annual Wellness (AWV) [facility] Start: 02-12-2024 Glaucoma screening Diabetes: R etinopathy Screening [facility] Start: 01-25-2024 Hemoglobin A1c measurement Diabetes: Hemoglobin A1C [facility] Start: 12-31-2023 End: 12-30-2024 Polysomnography [facility] Routine JANETT (obstructive sleep apnea) Expected: 12/31/2023 (Approximate), Expires: 12/30/2024 [facility] Work Phone: Comment on above: Expected: 12/31/2023 (Approximate), Expires: 12/30/2024 Start: 12-31-2023 End: 12-31-2023 Patient encounter procedure 12/31/2023 10:00 AM EST Office [facility] [address] [place] [address] Siavn Villegas DO [address] [place], [place] [id number] [facility] Start: 12-30-2023 End: 12-29-2024 CBC W Auto Differential panel - Blood CBC and differential Lab Routine Type 2 diabetes mellitus with diabetic microalbuminuria, without long-term current use of insulin ([facility]) Essential hypertension Expected: 12/30/2023 (Approximate), Expires: 12/29/2024 [facility] Comment on above: Expected: 12/30/2023 (Approximate), Expires: 12/29/2024 Start: 12-30-2023 End: 12-29-2024 Comprehensive metabolic 2000 panel - Serum or Plasma Comprehensive metabolic panel Lab Routine Type 2 diabetes mellitus with diabetic microalbuminuria, without long-term current use of insulin ([facility]) Essential hypertension Expected: 12/30/2023 (Approximate), Expires: 12/29/2024 [facility] Comment on above: Expected: 12/30/2023 (Approximate), Expires: 12/29/2024 Start: 12-30-2023 End: 12-29-2024 Hemoglobin A1c/Hemoglobin.total in Blood Hemoglobin A1c Lab Routine Type 2 diabetes mellitus with diabetic microalbuminuria, without long-term current use of insulin ([facility]) Expected: 12/30/2023 (Approximate), Expires: 12/29/2024 [facility] Comment on above: Expected: 12/30/2023 (Approximate), Expires: 12/29/2024 Start: 12-30-2023 End: 12-30-2023 Patient encounter procedure 12/30/2023 10:30 AM EST Office Visit [facility] [address] [place] [address] Sonam Drake NP [address] [place] [address] [facility] Start: 11-04-2023 End: 11-04-2023 Patient encounter procedure 11/04/2023 2:30 PM EDT Office Visit [facility] [address] [place] [address] Sivan Villegas, [address] [place] [address] [facility] [address] Start: 10-13-2023 Influenza vaccination Influenza Vacc ine (#1) [facility] Start: 08-11-2023 Influenza vaccination Influenza Vacc ine (#1) [facility] Comment on above: Postponed from 10/12 (Patient Refused) Start: 05-02-2023 End: 05-02-2023 Patient encounter procedure 05/02/2023 2:00 PM EDT Office Visit [facility] [address] [place] [address] Shaikh Connelly MD [address] [place] [address] [facility] Start: 02-17-2023 Hemoglobin A1c measurement Diabetes: Hemoglobin A1C [facility] Start: 09-04-2022 End: 09-04-2022 Patient encounter procedure 09/04/2022 Office Visit Obstetrics and Gynecology Radha Barclay APRN - DIL[place] [address] [place] [address] [facility] OBSTETRICS & GYNECOLOGY [facility] Start: 10-12-2021 Influenza vaccination Flu vaccine [...] [facility]ICAL [facility]ENTER Start: 2003 Lipid panel Lipids [facility] Start: 10-21-1998 Diabetes screen Diabetes screen [facility] Start: 10-21-1993 Screening for malign ant neoplasm of cervix [facility] Start: 10-21-1982 DTaP/Tdap/Td vaccine (1 - Tdap) DTaP/Tdap/Td vaccine (1 - Tdap) [facility] Start: 10-21-1982 Urine screening for protein Diabetes: Urine Protein Screening [facility] Start: 10-21-1981 Hepatitis C screening Hepatitis C sc reen [facility] Start: 10-21-1978 HIV screening HIV screen [facility] Start: 1975 Depression Screen Depression Screen [facility] Start: 04-20-1964 COVID-19 Vaccine (#1) COVID-19 Vacci ne (#1) [facility] Start: 1963 Screening for malign ant neoplasm of colon [facility] End: 08-30-2021 Cytopathology procedure, preparation of smear, genital source PAP SMEAR Lab Routine Routine cervical smear 1 Occurrences starting 08/30/2021 until 08/30/2021 [facility] Work Phone: Comment on above: 1 Occurrences starti ng 08/30/2021 until 08/30/2021 Microalbumin/Creatin ine panel in random Urine Microalbumin / creatinine urine ratio Lab Routine Type 2 diabetes mellitus with diabetic microalbuminuria, without long-term current use of insulin ([facility]) Essential hypertension Ordered: 12/30/2023 [facility] Work Phone: Comment on above: Ordered: 12/30/2023 Immunizations Immunization Date Immunization Notes Care Provider Tima garcia 01-14-2017 influenza, injectabl e, quadrivalent, preservative [facility] 01-14-2017 influenza virus vaccine, unspecified formulation Sonam Drake FINANCIAL SERVICES SALES REPRESENTATIVE Work Phone: [facility] Payers Date Payer Category Payer Self-pay [id number] 2022 Private Health Insurance [id number] 2022 Unknown [id number] 2012 Medicare [id number] 1963 Unknown [id number] [id number] 1963 Unknown [id number] 2.16.84 [id number] 1963 Unknown [id number] 2.16.84 [id number] 1963 Unknown [id number] 2.16.84 [id number] 1963 Unknown [id number] 2.16.84 [id number] 1963 Unknown [id number] 2.16.84 [id number] 1963 Unknown [id number] 2.16.84 [id number] 1963 Unknown [id number] 2.16.84 [id number] 1963 Unknown [id number] 2.16.84 [id number] 1963 Unknown [id number] 2.16.84 [id number] 1963 Unknown [id number] 2.16.84 [id number] 1963 Unknown [id number] 2.16.84 0.1.290851.3.579.2.593 1965 Unknown [id number] 2.16.84 0.1.628968.3.579.2.593 1965 Unknown [id number] 2.16.84 0.1.041736.3.579.2.593 1965 Unknown [id number] 2.16.84 0.1.726580.3.579.2.593 1965 Unknown [id number] 2.16.84 0.1.182991.3.579.2.593 1965 Unknown [id number] 2.16.84 0.1.508325.3.579.2.593 1963 Unknown [id number] 2.16.84 0.1.663478.3.579.2.1259 1963 Unknown [id number] 2.16.84 0.1.333966.3.579.2.1259 1963 Unknown [id number] 2.16.84 0.1.214222.3.579.2.1258 1965 Unknown [id number] 2.16.84 0.1.553816.3.579.2.1258 1963 Unknown [id number] 2.16.84 0.1.880806.3.579.2.1258 1965 Unknown [id number] 2.16.84 0.1.163576.3.579.2.1258 1965 Unknown [id number] 2.16.84 0.1.301972.3.579.2.1258 1963 Unknown [id number] 2.16.84 0.1.950614.3.579.2.1258 1965 Unknown [id number] 2.16.84 0.1.617301.3.579.2.1258 1965 Unknown [id number] 2.16.84 0.1.655738.3.579.2.1258 1965 Unknown [id number] 2.16.84 0.1.359871.3.579.2.1258 1965 Unknown [id number] 2.16. 840.1.274696.3.579.2.196 1961 Medicare [id number] 1.2.840.591298.1.13.239.2.7.3.249337.315 1959 Unknown [id number] 1.2.840.698213.1.13.239.2.7.3.529537.315 1959 Unknown [id number] 2.16.8 40.1.168329.19 Medicare Medicare [id number] Unknown [id number] 2.16.8 40.1.123989.3.579.2.531 Social History Date Type Detail Facility Start: 08-30-2021 End: 04-21-2024 Tobacco smoking status UTIS Smokes tobacco daily [employer] Phone: History of tobacco use Cigarette Smoker [facility] Phone: Start: 08-30-2021 End: 04-21-2024 Tobacco use and exposure Smokeless tobacco non-user [employer] Phone: Start: 08-30-2021 Alcohol intake Current drinke r of alcohol (finding) [employer] Phone: Start: 08-30-2021 History SDOH Alcohol Comment occasional [employer] Phone: Start: 1965 Sex Assigned At Not on file [facility] Phone: Start: 08-20-2021 End: 08-30-2021 Exposure to SARS-CoV-2 (event) Not sure [facility] Start: 02-25-2023 End: 10-02-2023 Sex Assigned At [facility] Start: 01-29-2023 End: 05-20-2024 Tobacco smoking status UTIS Ex-smoker [facility] History of tobacco use Current smoker [facility] Start: 01-29-2023 End: 10-02-2023 Cigarettes smoked current (pack per day) - Reported 0.5 [facility] Start: 02-25-2023 End: 05-19-2024 Alcohol intake Lifetime non-drinker (finding) [facility] Start: 1965 Sex Assigned At Female F [facility] History of tobacco use Passive smoker [facility] Start: 05-29-2024 Sex Female (finding) [facility] Medical Equipment Procedure Code Equipment Code Equipment Origin al Text Equipment Identifier Dates [id number] Start: 06-08-2021 End: 04-21-2024 Clinical Notes 06-20-2021 to 05-28-2024 Note Date & Type Note Facility 05-28-2024 Evaluation note Diagnosis Onset Date Resolution Primary osteoarthritis of right knee acute May 28, 2024 12:55pm [facility] Work Phone: 1(829) 513-608304-11-2025 History of Present illness Narrative* Ameena Vera NP - 05/22/2024 7:25 AM EDT par documented in this encounterCox [id number] History of Present illness Narrative* Ameena Vera [...] orthopedic surgeon in the past back in [place] for that knee however she does not remember who. Fast sugars average 113 * Ameena Vera, FINANCIAL SERVICES SALES REPRESENTATIVE - 05/19/2024 11:00 AM EDT Images from [...] orthopedic surgeon in the past back in [place] for that knee however she does not [...] MORE THAN 3 TABLETS DAILY Continuous Glucose Fish Rod Maker (Dexcom G7 Fish Rod Maker) device 1 each, Does not apply, Continuous [...] microalbuminuria, without long-term current use of insulin ([facility]) Check blood sugars daily, notify if <70 [...] and without status migrainosus, not intractable (CMS/HCC) Current meds: maxalt, depakote Other hyperlipidemia On [...] of the risks of continued smoking: stroke, SD, all forms of cancer, lung disease, and [...] of the risks of continued smoking: stroke, SD, all forms of cancer, lung disease, and [...] aura and without status migrainosus, not intractable ([facility]) Current meds: maxalt, depakote * Ameena Vera NP - 05/19/2024 6:51 AM EDTAssociated Problem(s): Type 2 diabetes mellitus with diabetic microalbuminuria, without long-term current use of insulin ([facility]) Check blood sugars daily, notify if <70 [...] that supplies your machine and tubing/filters etc: [facility] Doctor that manages your JANETT: Dr Villegas documented in this encounterCox [id number] Instructions* Patient Instructions* Ameena Vera NP - 05/19/2024 11:00 AM EDT Fasting labs Get xray knee Referral to Dr Darren Orona documented in this encounterCox [id number] Telephone encounter Note* Telephone Encounter - Jolly Castaneda MA - 03/30/2024 11:44 AM EST Pt's sensor fell off, and she needs them refilled please [facility] [id number] Miscellaneous Notes* Telephone Encounter - Jolly Castaneda MA - 03/30/2024 11:44 AM EST Pt's sensor fell off, and she needs them refilled please documented in this encounterCox [id number] History of Present illness Narrative* Alicia Monroy [...] Examined Right arm Examined Patient wearing nail nepali, Denies dark streaks under finger nails, Denies [...] year skin check documented in this encounterCox [id number] History of Present illness Narrative* Sonam Drake [...] microalbuminuria, without long-term current use of insulin ([facility]) Currently taking Metformin Bid and Ozempic 1mg. [...] (Hb A1C) docked device (Completed) Other hyperlipidemia (CMS/HCC) Crestor 20mg Denies myalgias [...] complication, without long-term current use of insulin ([facility]) documented in this [facility]02-17-2025 Instructions* Patient Instructions* Sonam Drake NP - [...] carbohydrates, and simple sugars. documented in this [facility]01-21-2025 History of Present illness Narrative* Sonam Drake [...] microalbuminuria, without long-term current use of insulin ([facility]) Relevant Medications metFORMIN (Glucophage) 500 MG tablet Continuous Glucose Fish Rod Maker (Dexcom G7 Fish Rod Maker) device Continuous Glucose Sensor (Dexcom G7 Sensor) [...] (Lyrica) 75 MG capsule documented in this [facility]01-21-2025 Instructions* Patient Instructions* Sonam Drake NP - [...] 1500 calories per day. documented in this [facility]12-19-2024 Telephone encounter Note* Telephone Encounter - Jolly Castaneda MA - 01/30/2024 10:38 AM EST GIOVANNA:12/30/2023 NOV:03/26/2024 [id number] Miscellaneous Notes* Telephone Encounter - Jolly Castaneda MA - 01/30/2024 10:38 AM EST GIOVANNA:12/30/2023 NOV:03/26/2024 documented in this [facility]12-03-2024 Telephone encounter Note* Telephone Encounter - Jolly Castaneda MA - 01/14/2024 8:34 AM EST GIOVANNA:12/30/2023 NOV:03/26/2023 [facility] [id number] Miscellaneous Notes* Telephone Encounter - Jolly Castaneda MA - 01/14/2024 8:34 AM EST GIOVANNA:12/30/2023 NOV:03/26/2023 documented in this [facility]11-19-2024 History of Present illness Narrative* Sivan Villegas DO - 12/31/2023 10:00 AM EST Images from the original note were not included. No chief complaint on file. Subjective SLEEP CONSULT REFERRAL: Snoring, concern for JANETT, needing sleep study - labs @ [facility]; referral received from Sonam Drake CNP. [...] was counseled on the risks of stroke, SD, and sudden with JANETT, along with the [...] clinic: 2 months documented in this encounterCox [id number] History of Present illness Narrative* Sonam Drake [...] microalbuminuria, without long-term current use of insulin ([facility]) Currently taking Metformin Bid and Ozempic Most [...] ALBUMIN GLOBULIN RATIO 0.8 Resulting Agency [facility] DMII: Metformin Bid and Ozempic Most [...] First appointment tomorrow. documented in this encounterCox [id number] Instructions* Patient Instructions* Sonam Drake NP - 12/30/2023 10:30 AM EST FASTING labs ordered. Nothing to eat or drink for 12 hours prior to blood draw. Water and black coffee ok. Call if you need anything! documented in this [facility]11-05-2024 Telephone encounter Note* Telephone Encounter - Jolly Castaneda MA - 12/17/2023 3:39 PM EST GIOVANNA:10/03/2023 NOV:12/30/2023 [facility] [id number] Miscellaneous Notes* Telephone Encounter - Jolly Castaneda MA - 12/17/2023 3:39 PM EST GIOVANNA:10/03/2023 NOV:12/30/2023 documented in this [facility]08-22-2024 History of Present illness Narrative* Sonam Drake NP - 10/03/2023 10:57 AM EDTAssociated Problem(s): Snoring Screening for JANETT- Referral sent to [facility] * Sonam Drake NP - 10/03/2023 10:35 [...] 10/03/2023 10:34 AM EDTAssociated Problem(s): Other hyperlipidemia ([facility]) Crestor 20mg; Lipid panel looks good Denies myalgias; Continue Crsetor * Sonam Drake NP - 10/03/2023 10:34 AM EDTAssociated Problem(s): Type 2 diabetes mellitus with diabetic microalbuminuria, without long-term current use of insulin ([facility]) Metformin Bid and Ozempic Most recent labs: [...] ALBUMIN GLOBULIN RATIO 0.8 Resulting Agency [facility] DMII: Metformin Bid and Ozempic Most [...] for JANETT- Referral sent to [facility] Other Visit Diagnoses Type 2 diabetes mellitus without complication, without long-term current use of insulin (CMS/HCC) Relevant Medications semaglutide (Ozempic, 1 MG/DOSE,) 4 MG/3ML solution pen-injector Diabetic polyneuropathy associated with type 2 diabetes mellitus (CMS/HCC) Relevant Medications pregabalin (Lyrica) 75 MG capsule documented in this encounterCox [id number] Instructions* Patient Instructions* Sonam Drake NP - [...] if you need anything! documented in this [facility]02-06-2024 Evaluation note* Encounter Date Diagnosis Assessment Notes [...] Left hand pain (ICD- 10 - M79.642) [facility] Other 12-13-2023 Evaluation note* Encounter Date Diagnosis [...] noted. Patient will f/u in 4 weeks. [facility] Other 12-08-2023 Evaluation note* Encounter Date Diagnosis [...] that was performed at [facility] which revealed degenerative changes in the hand as well as a remote avulsion fracture of the thumb. Patient states her family doctor is treating her for gout in her hand. Jan, History of gout (ICD-10 - Z87.39) Jan, Other Gout material w as printed [facility] Other 08-09-2023 Evaluation note* Encounter Date Diagnosis Assessment Notes Treatment Notes Treatment Clinical Notes Sep, Right wrist pain (ICD-10 - M25.531) [facility] Other 04-27-2023 NoteCONSULTATION CONSULTATION DATE: 06/07/2022 TO: [...] our patients to inform us about any imro-eyx-xemfnuh medications or herbal remedies/nutritional supplements/alternative remedies. 2. [...] their primary care provider.[id number] Evaluation note * Encounter Date Diagnosis Assessment [...] understanding and is agreeable to treatment plan. [facility] Other 01-26-2023 NoteCONSULTATION PROCEDURE DATE: 03/08/2022 PREOPERATIVE [...] up in the clinic.[facility] [id number] NotePROCEDURE: XR KNEE LT 4V or > [...] Electronically authenticated by: PATTIE CORTES Date: 2022-02-16 11:29[facility]12-30-2022 NoteCONSULTATION CONSULTATION DATE: 02/09/2022 HISTORY OF [...] agrees with this plan.[facility] [id number] NotePROCEDURE: XR WRIST RT MIN 3 V COMPARISON: None. HISTORY: Injury of right wrist FINDINGS: BONES:No acute fracture or dislocation. Corticated bone fragment identified along the first carpometacarpal joint [degenerative in nature SOFT TISSUES:Moderate diffuse soft tissue swelling EFFUSION:None visible. OTHER: Negative. IMPRESSION: Soft tissue swelling, no acute fracture Electronically authenticated by: RYAN GOLDMAN Date: 2021-11-16 18:59[facility] [id number] NoteCONSULTATION CONSULTATION DATE: 11/01/2021 HISTORY OF PRESENT [...] agrees with this plan.[facility] [id number] NoteCONSULTATION PROCEDURE DATE: 11/01/2021 PRE AND POSTOPERATIVE [...] up in the clinic.[facility] [id number] NoteCONSULTATION PROCEDURE DATE: 08/09/2021 PREOPERATIVE DIAGNOSIS: Bilateral [...] will be followed up in the clinic. [facility] Signed and Approved by: CRYS PIERCE . 08/10/2021 13:37:00[facility] [id number] NoteCONSULTATION CONSULTATION DATE: 07/19/2021 HISTORY OF PRESENT [...] injections. Patient acknowledges and all questions answered. [facility] Signed and Approved by: CRYS PIERCE . 07/20/2021 10:33:00[facility]05-25-2022 NotePROCEDURE: XR FOOT RT MIN 3 [...] Electronically authenticated by: PATTIE CORTES Date: 2021-07-05 11:11[facility]05-10-2022 NoteCONSULTATION CONSULTATION DATE: 06/20/2021 CHIEF COMPLAINT: [...] like to proceed. CC: Jonathan Edwards M.D. [facility] Signed and Approved by: DR RICARDO HOLM . 06/27/2021 10:40:00[facility]* Diagnosis Routine cervical smear Screening for malignant neoplasm of the cervix documented in this encounter [facility] Work Phone: evaluation note* Diagnosis Diabetic polyneuropathy associated with type 2 diabetes mellitus (CMS/HCC)- Primary documented in this encounter [facility] HealthcareEvaluation noteNo assessment information availableRiverview Health Institute Work Phone: Evaluation note* Diagnosis Encounter for [...] with routine healing, subsequent encounter Other hyperlipidemia ([facility]) Hyperuricemia Other abnormal blood chemistry Osteoporosis, unspecified osteoporosis type, unspecified pathological fracture presence (CMS/HCC) Diabetic polyneuropathy associated with type 2 diabetes mellitus (CMS/HCC) Gastroesophageal reflux disease without esophagitis Esophageal reflux Migraine with aura and without status migrainosus, not intractable (CMS/[facility]) Hospital discharge follow-up Other follow-up examination Type 2 diabetes mellitus with diabetic microalbuminuria, without long-term current use of insulin (CMS/HCC)- Primary Other hyperlipidemia (CMS/HCC) Essential hypertension Unspecified essential hypertension Bilateral lower extremity edema Lumbar back pain- Primary Lumbago Hospital discharge follow-up Other follow-up examination Essential hypertension- Primary Unspecified essential hypertension Type 2 diabetes mellitus with diabetic microalbuminuria, without long-term current use of insulin ([facility]) Morbid (severe) obesity due to excess calories (E66.01) Other hyperlipidemia (CMS/HCC) Lumbar back pain Lumbago Type 2 diabetes mellitus without complication, without long-term current use of insulin ([facility]) Diabetic polyneuropathy associated with type 2 diabetes mellitus ([facility]) Mixed urge and stress incontinence Mixed incontinence [...] complication, without long-term current use of insulin ([facility]/HCC) Upper respiratory tract infection, unspecified type URTI [...] complication, without long-term current use of insulin ([facility]) Back spasm Other symptoms referable to back Closed fracture of proximal end of left fibula with routine healing, unspecified fracture morphology, subsequent encounter Closed nondisplaced fracture of second metatarsal bone of left foot with routine healing, subsequent encounter Other hyperlipidemia ([facility]) Hyperuricemia Other abnormal blood chemistry Osteoporosis, unspecified osteoporosis type, unspecified pathological fracture presence ([facility]) Diabetic polyneuropathy associated with type 2 diabetes mellitus ([facility]) Gastroesophageal reflux disease without esophagitis Esophageal reflux Migraine with aura and without status migrainosus, not intractable ([facility]) Hospital discharge follow-up Other follow-up examination Type 2 diabetes mellitus with diabetic microalbuminuria, without long-term current use of insulin ([facility])- Primary Other hyperlipidemia ([facility]/HCC) Essential hypertension Unspecified essential hypertension Bilateral lower extremity edema Lumbar back pain- Primary Lumbago Hospital discharge follow-up Other follow-up examination Essential hypertension- Primary Unspecified essential hypertension Type 2 diabetes mellitus with diabetic microalbuminuria, without long-term current use of insulin ([facility]) Morbid (severe) obesity due to excess calories (E66.01) Other hyperlipidemia ([facility]) Lumbar back pain Lumbago Type 2 diabetes mellitus without complication, without long-term current use of insulin ([facility]) Diabetic polyneuropathy associated with type 2 diabetes mellitus ([facility]) Mixed urge and stress incontinence Mixed incontinence urge and stress (male)(female) Snoring Other dyspnea and respiratory abnormality Encounter for long-term (current) use of high-risk medication Encounter for long-term (current) use of other medications Type 2 diabetes mellitus with diabetic microalbuminuria, without long-term current use of insulin ([facility])- Primary Essential hypertension Unspecified essential hypertension Other hyperlipidemia ([facility]) Snoring Other dyspnea and respiratory abnormality Mixed [...] with routine healing, subsequent encounter Other hyperlipidemia (CMS/[facility]) Hyperuricemia Other abnormal blood chemistry Osteoporosis, unspecified osteoporosis type, unspecified pathological fracture presence (CMS/[facility]) Diabetic polyneuropathy associated with type 2 diabetes mellitus (CMS/HCC) Gastroesophageal reflux disease without esophagitis Esophageal reflux Migraine with aura and without status migrainosus, not intractable (CMS/[facility]) Hospital discharge follow-up Other follow-up examination Type [...] complication, without long-term current use of insulin ([facility]) Diabetic polyneuropathy associated with type 2 diabetes mellitus ([facility]/HCC) Mixed urge and stress incontinence Mixed incontinence [...] stress (male)(female) [facility] [...] polyneuropathy associated with type 2 diabetes mellitus ([facility]/HCC) Mixed urge and stress incontinence Mixed incontinence urge and stress (male)(female) Snoring Other dyspnea and respiratory abnormality Encounter for long-term (current) use of high-risk medication Encounter for long-term (current) use of other medications Type 2 diabetes mellitus with diabetic microalbuminuria, without long-term current use of insulin ([facility])- Primary Essential hypertension Unspecified essential hypertension Other hyperlipidemia ([facility]) Snoring Other dyspnea and respiratory abnormality Mixed urge and stress incontinence Mixed incontinence urge and stress (male)(female) Lumbar back pain Lumbago [facility]* Diagnosis Essential hypertension- Primary Unspecified essential hypertension Type 2 diabetes mellitus with diabetic microalbuminuria, without long-term current use of insulin ([facility]) Morbid (severe) obesity due to excess calories (E66.01) Other hyperlipidemia ([facility]) Lumbar back pain Lumbago Type 2 diabetes mellitus without complication, without long-term current use of insulin ([facility]) Diabetic polyneuropathy associated with type 2 diabetes mellitus ([facility]) Mixed urge and stress incontinence Mixed incontinence urge and stress (male)(female) Snoring Other dyspnea and respiratory abnormality [facility]* Diagnosis Gout, unspecified cause, unspecified chronicity, unspecified site [facility]* Diagnosis Diabetic polyneuropathy associated with type 2 diabetes mellitus ([facility]/HCC) [facility]* Diagnosis Encounter for screening mammogram for breast cancer- Primary Encounter for screening for malignant neoplasm of colon Type 2 diabetes mellitus without complication, without long-term current use of insulin ([facility]) Upper respiratory tract infection, unspecified type URTI (acute upper respiratory infection) Acute upper respiratory infections of unspecified site Migraine with aura and without status migrainosus, not intractable ([facility])- Primary Type 2 diabetes mellitus without complication, without long-term current use of insulin ([facility]) Morbid (severe) obesity due to excess calories (E66.01) Body mass index [BMI] 40.0-44.9, adult (Z68.41) Essential hypertension Unspecified essential hypertension Essential hypertension- Primary Unspecified essential hypertension Type 2 diabetes mellitus without complication, without long-term current use of insulin ([facility]) Back spasm Other symptoms referable to back Closed fracture of proximal end of left fibula with routine healing, unspecified fracture morphology, subsequent encounter Closed nondisplaced fracture of second metatarsal bone of left foot with routine healing, subsequent encounter Other hyperlipidemia ([facility]) Hyperuricemia Other abnormal blood chemistry Osteoporosis, unspecified osteoporosis type, unspecified pathological fracture presence (CMS/[facility]) Diabetic polyneuropathy associated with type 2 diabetes mellitus ([facility]) Gastroesophageal reflux disease without esophagitis Esophageal reflux Migraine with aura and without status migrainosus, not intractable ([facility] [facility]) Hospital discharge follow-up Other follow-up examination Type 2 diabetes mellitus with diabetic microalbuminuria, without long-term current use of insulin ([facility])- Primary Other hyperlipidemia (CMS/[facility]) Essential hypertension Unspecified essential hypertension Bilateral lower extremity edema Lumbar back pain- Primary Lumbago Hospital discharge follow-up Other follow-up examination Essential hypertension- Primary Unspecified essential hypertension Type 2 diabetes mellitus with diabetic microalbuminuria, without long-term current use of insulin ([facility]) Morbid (severe) obesity due to excess calories (E66.01) Other hyperlipidemia (CMS/HCC) Lumbar back pain Lumbago Type 2 diabetes mellitus without complication, without long-term current use of insulin ([facility]) Diabetic polyneuropathy associated with type 2 diabetes mellitus ([facility]) Mixed urge and stress incontinence Mixed incontinence urge and stress (male)(female) Snoring Other dyspnea and respiratory abnormality Encounter for long-term (current) use of high-risk medication Encounter for long-term (current) use of other medications Type 2 diabetes mellitus with diabetic microalbuminuria, without long-term current use of insulin ([facility])- Primary Essential hypertension Unspecified essential hypertension Other hyperlipidemia ([facility]) Snoring Other dyspnea and respiratory abnormality Mixed urge and stress incontinence Mixed incontinence urge and stress (male)(female) Lumbar back pain- Primary Lumbago Type 2 diabetes mellitus with diabetic microalbuminuria, without long-term current use of insulin ([facility]/HCC) documented in this encounter [facility] HealthcareEvaluation note* Diagnosis Encounter for screening mammogram for breast cancer- Primary Encounter for screening for malignant neoplasm of colon Type 2 diabetes mellitus without complication, without long-term current use of insulin ([facility]) Upper respiratory tract infection, unspecified type URTI [...] Other hyperlipidemia (CMS/HCC) documented [facility] encounter [facility] fracture presence (CMS/HCC) documented in this encounter [facility] HealthcareEvaluation note* Diagnosis Encounter for screening [...] microalbuminuria, without long-term current use of insulin ([facility]/HCC)- Primary Other hyperlipidemia (CMS/HCC) Essential hypertension Unspecified essential hypertension Bilateral lower extremity edema Lumbar back pain- Primary Lumbago Hospital discharge follow-up Other follow-up examination Essential hypertension- Primary Unspecified essential hypertension Type 2 diabetes mellitus with diabetic microalbuminuria, without long-term current use of insulin ([facility]) Morbid (severe) obesity due to excess calories (E66.01) Other hyperlipidemia (CMS/HCC) Lumbar back pain Lumbago Type 2 diabetes mellitus without complication, without long-term current use of insulin ([facility]) Diabetic polyneuropathy associated with type 2 diabetes mellitus ([facility]) Mixed urge and stress incontinence Mixed incontinence urge and stress (male)(female) Snoring Other dyspnea and respiratory abnormality Encounter for long-term (current) use of high-risk medication Encounter for long-term (current) use of other medications Type 2 diabetes mellitus with diabetic microalbuminuria, without long-term current use of insulin ([facility])- Primary Essential hypertension Unspecified essential hypertension Other hyperlipidemia ([facility]/HCC) Snoring Other dyspnea and respiratory abnormality Mixed urge and stress incontinence Mixed incontinence urge and stress (male)(female) Upper respiratory infection with cough and congestion- Primary Lumbar back pain Lumbago Migraine with aura and without status migrainosus, not intractable ([facility]) Type 2 diabetes mellitus with diabetic microalbuminuria, without long-term current use of insulin ([facility]) Diabetic polyneuropathy associated with type 2 diabetes mellitus ([facility]/HCC) Other hyperlipidemia ([facility]) Gastroesophageal reflux disease without esophagitis Esophageal reflux documented in this encounter [facility] HealthcareEvaluation note* Diagnosis Encounter for screening mammogram for breast cancer- Primary Encounter for screening for malignant neoplasm of colon Type 2 diabetes mellitus without complication, without long-term current use of insulin ([facility]) Upper respiratory tract infection, unspecified type URTI [...] microalbuminuria, without long-term current use of insulin ([facility]/HCC)- Primary Essential hypertension Unspecified essential hypertension Other [...] hypertension Unspecified essential hypertension Other hyperlipidemia (CMS/HCC) JAENTT (obstructive sleep apnea) Obstructive sleep apnea (adult) (pediatric) Type 2 diabetes mellitus without complication, without long-term current use of insulin (CMS/HCC) documented in this encounter [facility] [...] of insulin (CMS/HCC) documented in this encounter [facility] [...] of insulin (CMS/HCC) documented in this encounter [facility] [...] extremity edema- Primary documented in this encounter [facility] [...] aura and without status migrainosus, not intractable ([facility]/HCC)- Primary Type 2 diabetes mellitus without complication, [...] unspecified osteoporosis type, unspecified pathological fracture presence ([facility]) Diabetic polyneuropathy associated with type 2 diabetes mellitus ([facility]) Gastroesophageal reflux disease without esophagitis Esophageal reflux Migraine with aura and without status migrainosus, not intractable ([facility]) Hospital discharge follow-up Other follow-up examination Type 2 diabetes mellitus with diabetic microalbuminuria, without long-term current use of insulin ([facility])- Primary Other hyperlipidemia Essential hypertension Unspecified essential hypertension Bilateral lower extremity edema Lumbar back pain- Primary Lumbago Hospital discharge follow-up Other follow-up examination Essential hypertension- Primary Unspecified essential hypertension Type 2 diabetes mellitus with diabetic microalbuminuria, without long-term current use of insulin ([facility]) Morbid (severe) obesity due to excess calories (E66.01) Other hyperlipidemia Lumbar back pain Lumbago Type 2 diabetes mellitus without complication, without long-term current use of insulin Diabetic polyneuropathy associated with type 2 diabetes mellitus ([facility]) Mixed urge and stress incontinence Mixed incontinence urge and stress (male)(female) Snoring Other dyspnea and respiratory abnormality Encounter for long-term (current) use of high-risk medication Encounter for long-term (current) use of other medications Type 2 diabetes mellitus with diabetic microalbuminuria, without long-term current use of insulin ([facility])- Primary Essential hypertension Unspecified essential hypertension Other hyperlipidemia Snoring Other dyspnea and respiratory abnormality Mixed urge and stress incontinence Mixed incontinence urge and stress (male)(female) Type 2 diabetes mellitus with diabetic microalbuminuria, without long-term current use of insulin ([facility])- Primary Essential hypertension Unspecified essential hypertension Other [...] (CMS/HCC) Hypercalcemia- Primary documented in this encounter [facility] HealthcareEvaluation note* [...] polyneuropathy associated with type 2 diabetes mellitus ([facility]/HCC) Mixed urge and stress incontinence Mixed incontinence urge and stress (male)(female) Snoring Other dyspnea and respiratory abnormality Encounter for long-term (current) use of high-risk medication Encounter for long-term (current) use of other medications Type 2 diabetes mellitus with diabetic microalbuminuria, without long-term current use of insulin ([facility]/HCC)- Primary Essential hypertension Unspecified essential hypertension Other hyperlipidemia Snoring Other dyspnea and respiratory abnormality Mixed urge and stress incontinence Mixed incontinence urge and stress (male)(female) Type 2 diabetes mellitus with diabetic microalbuminuria, without long-term current use of insulin ([facility]/HCC)- Primary Essential hypertension Unspecified essential hypertension Other [...] polyneuropathy associated with type 2 diabetes mellitus (CMS/[facility]) [facility] aura and without status migrainosus, not intractable ([facility]) Hospital discharge follow-up Other follow-up examination Type 2 diabetes mellitus with diabetic microalbuminuria, without long-term current use of insulin (CMS/[facility])- Primary Other hyperlipidemia Essential hypertension Unspecified essential hypertension Bilateral lower extremity edema Lumbar back pain- Primary Lumbago Hospital discharge follow-up Other follow-up examination Essential hypertension- Primary Unspecified essential hypertension Type 2 diabetes mellitus with diabetic microalbuminuria, without long-term current use of insulin ([facility]) Morbid (severe) obesity due to excess calories (E66.01) Other hyperlipidemia Lumbar back pain Lumbago Type 2 diabetes mellitus without complication, without long-term current use of insulin Diabetic polyneuropathy associated with type 2 diabetes mellitus ([facility]) Mixed urge and stress incontinence Mixed incontinence urge and stress (male)(female) Snoring Other dyspnea and respiratory abnormality Encounter for long-term (current) use of high-risk medication Encounter for long-term (current) use of other medications Type 2 diabetes mellitus with diabetic microalbuminuria, without long-term current use of insulin ([facility])- Primary Essential hypertension Unspecified essential hypertension Other hyperlipidemia Snoring Other dyspnea and respiratory abnormality Mixed urge and stress incontinence Mixed incontinence urge and stress (male)(female) Type 2 diabetes mellitus with diabetic microalbuminuria, without long-term current use of insulin ([facility])- Primary Essential hypertension Unspecified essential hypertension Other hyperlipidemia JANETT (obstructive sleep apnea) Obstructive sleep apnea (adult) (pediatric) Type 2 diabetes mellitus without complication, without long-term current use of insulin Type 2 diabetes mellitus with diabetic microalbuminuria, without long-term current use of insulin ([facility])- Primary Morbid (severe) obesity due to excess calories ([facility]) Other hyperlipidemia Body mass index (BMI) 39.0-39.9, adult JANETT (obstructive sleep apnea) Obstructive sleep apnea (adult) (pediatric) Bilateral lower extremity edema Migraine with aura and without status migrainosus, not intractable (CMS/[facility]) Cigarette nicotine dependence without complication Hypercalcemia Essential hypertension Unspecified essential hypertension Elevated blood uric acid level Lumbar back pain Lumbago Gastroesophageal reflux disease without esophagitis Esophageal reflux Chronic gout of multiple sites, unspecified cause Acute pain of right knee Diabetic polyneuropathy associated with type 2 diabetes mellitus ([facility]) Hypercalcemia- Primary Low serum parathyroid hormone (PTH) documented in this encounter [facility] other sinus- Primary documented in this encounter [facility] [...] unspecified osteoporosis type, unspecified pathological fracture presence ([facility]) Diabetic polyneuropathy associated with type 2 diabetes mellitus ([facility]/HCC) Gastroesophageal reflux disease without esophagitis Esophageal reflux Migraine with aura and without status migrainosus, not intractable ([facility]) Hospital discharge follow-up Other follow-up examination Type 2 diabetes mellitus with diabetic microalbuminuria, without long-term current use of insulin ([facility])- Primary Other hyperlipidemia Essential hypertension Unspecified essential hypertension Bilateral lower extremity edema Lumbar back pain- Primary Lumbago Hospital discharge follow-up Other follow-up examination Essential hypertension- Primary Unspecified essential hypertension Type 2 diabetes mellitus with diabetic microalbuminuria, without long-term current use of insulin ([facility]) Morbid (severe) obesity due to excess calories (E66.01) Other hyperlipidemia Lumbar back pain Lumbago Type 2 diabetes mellitus without complication, without long-term current use of insulin Diabetic polyneuropathy associated with type 2 diabetes mellitus ([facility]) Mixed urge and stress incontinence Mixed incontinence urge and stress (male)(female) Snoring Other dyspnea and respiratory abnormality Encounter for long-term (current) use of high-risk medication Encounter for long-term (current) use of other medications Type 2 diabetes mellitus with diabetic microalbuminuria, without long-term current use of insulin ([facility])- Primary Essential hypertension Unspecified essential hypertension Other hyperlipidemia Snoring Other dyspnea and respiratory abnormality Mixed urge and stress incontinence Mixed incontinence urge and stress (male)(female) Type 2 diabetes mellitus with diabetic microalbuminuria, without long-term current use of insulin ([facility])- Primary Essential hypertension Unspecified essential hypertension Other hyperlipidemia JAENTT (obstructive sleep apnea) Obstructive sleep apnea (adult) (pediatric) Type 2 diabetes mellitus without complication, without long-term current use of insulin Type 2 diabetes mellitus with diabetic microalbuminuria, without long-term current use of insulin ([facility])- Primary Morbid (severe) obesity due to excess calories ([facility]) Other hyperlipidemia Body mass index (BMI) 39.0-39.9, adult JANETT (obstructive sleep apnea) Obstructive sleep apnea (adult) (pediatric) Bilateral lower extremity edema Migraine with aura and without status migrainosus, not intractable ([facility]) Cigarette nicotine dependence without complication Hypercalcemia Essential [...] History tubal ligation Hospitalization History see above [email or web address] Other Reason for referral (narrative)* Consultation (Routine) - Pending Review Specialty Diagnoses / Procedures Referred By Darren acharya Referred To Contact Neurology Diagnoses Snoring Procedures AL OFFICE/OUTPATIENT NEW HIGH MDM 60 MINUTES Sonam Drake NP [address] [place] [address] Sivan Villegas DO [address] [place] [address] Referral ID Status Reason Start Date Expiration Date Visits Requested Visits Authorized [id number] Pending Review Specialty Services Required 10/03/2023 03/31/2024 1 1 Scheduling Instructions Please include OV note from today * Consultation (Routine) - Pending Review Specialty Diagnoses / Procedures Referred By Darren acharya Referred To Contact Urology Diagnoses Mixed urge and stress incontinence Procedures AL OFFICE/OUTPATIENT NEW HIGH MDM 60 MINUTES Snoam Drake NP [address] [place] [address] Skinny Villafuerte MD [address] [place] [address] Referral ID Status Reason Start Date Expiration Date Visits Requested Visits Authorized [id number] Pending Review Specialty Services Required 10/03/2023 03/31/2024 1 1 [facility] Summary Purpose Family History No Family History [...] Care Teams (unrecognized sec tion and content) Credit Control Administrator Relationship Specialty Start Date End Date Sr Jonathan Edwards DO [address] [place] [address] PCP - General Family Medicine 08/30/21 Credit Control Administrator Relationship Specialty Start Date End Date Shaikh [...] April 30, 2023 End: April 30, 2023 Credit Control Administrator Relationship Specialty Start Date End Date Jose Chandler MD [address] [place] [address] PCP - General Family Medicine 12/12/23 Sonam Drake NP [address] [place] [address] Nurse Practitioner Family Medicine 09/24/23 Credit Control Administrator Relationship Specialty Start Date End Date Jose Chandler MD [address] [place] [phone] PCP - General Family Medicine 12/12/23 Sonam Drake NP [address] [place] [address] Nurse Practitioner Family Medicine 09/24/23 Credit Control Administrator Relationship Specialty Start Date End Date Jose Chandler MD [address] [place] [phone] PCP - General Family Medicine 12/12/23 Sonam Drake NP [address] [place] [address] Nurse Practitioner Family Medicine 09/24/23 Credit Control Administrator Relationship Specialty Start Date End Date Jose Chandler MD [address] [place] [address] PCP - General Family Medicine 12/12/23 Sonam Drake NP [address] [place] [address] Nurse Practitioner Family Medicine 09/24/23 Credit Control Administrator Relationship Specialty Start Date End Date Jose Chandler MD [address] [place] [address] PCP - General Family Medicine 12/12/23 Sonam Drake NP [address] [place] [address] Nurse Practitioner Family Medicine 09/24/23 Credit Control Administrator Relationship Specialty Start Date End Date Jose Chandler MD [address] [place] [address] PCP - General Family Medicine 12/12/23 Sonam Drake NP [address] [place] [address] Nurse Practitioner Family Medicine 09/24/23 Credit Control Administrator Relationship Specialty Start Date End Date Jose Chandler MD [address] [place] [address] PCP - General Family Medicine 09/24/23 Sonam Drake NP [address] [place] [address] Nurse Practitioner Family Medicine 09/24/23 Credit Control Administrator Relationship Specialty Start Date End Date Jose Chandler MD [address] [place] [address] PCP - General Family Medicine 09/24/23 Sonam Drake NP [address] [place] [address] Nurse Practitioner Family Medicine 09/24/23 Credit Control Administrator Relationship Specialty Start Date End Date Jose Chandler MD [address] [place] [address] PCP - General Family Medicine 09/24/23 Sonam Drake NP [address] [place] [address] Nurse Practitioner Family Medicine 09/24/23 Credit Control Administrator Relationship Specialty Start Date End Date Jose Chandler MD [address] [place] [address] PCP - General Family Medicine 09/24/23 Sonam Drake NP [address] [place] [address] Nurse Practitioner Family Medicine 09/24/23 Credit Control Administrator Relationship Specialty Start Date End Date Jose Chandler MD [address] [place] [address] PCP - General Family Medicine 12/12/23 Sonam Drake NP [address] [place] [address] Nurse Practitioner Family Medicine 09/24/23 Credit Control Administrator Relationship Specialty Start Date End Date Jose Chandler MD [address] [place] [address] PCP - General Family Medicine 12/12/23 Sonam Drake NP [address] [place] [address] Nurse Practitioner Family Medicine 09/24/23 Credit Control Administrator Relationship Specialty Start Date End Date Jose Chandler MD [address] [place] [address] PCP - General Family Medicine 12/12/23 Sonam Drake NP [address] [place] [address] Nurse Practitioner Family Medicine 09/24/23 Credit Control Administrator Relationship Specialty Start Date End Date Jose Chandler MD [address] [place] [address] PCP - General Family Medicine 12/12/23 Sonam Drake NP [address] [place] [address] Nurse Practitioner Family Medicine 09/24/23 Credit Control Administrator Relationship Specialty Start Date End Date Jose Chandler MD [address] [place] [phone] PCP - General Family Medicine 12/12/23 Sonam Drake NP [address] [place] [address] Nurse Practitioner Family Medicine 09/24/23 Credit Control Administrator Relationship Specialty Start Date End Date Jose Chandler MD [address] [place] [address] PCP - General Family Medicine 12/12/23 Sonam Drake NP [address] [place] [address] Nurse Practitioner Family Medicine 09/24/23 Credit Control Administrator Relationship Specialty Start Date End Date Jose Chandler MD [address] [place] [address] PCP - General Family Medicine 12/12/23 Sonam Drake NP [address] [place] [address] Nurse Practitioner Family Medicine 09/24/23 Credit Control Administrator Relationship Specialty Start Date End Date Jose Chandler MD [address] [place] [address] PCP - General Family Medicine 12/12/23 Sonam Drake NP [address] [place] [address] Nurse Practitioner Family Medicine 09/24/23 Credit Control Administrator Relationship Specialty Start Date End Date Jose Chandler MD [address] [place] [address] PCP - General Family Medicine 12/12/23 Sonam Drake NP [address] [place] [address] Nurse Practitioner Family Medicine 09/24/23 Credit Control Administrator Relationship Specialty Start Date End Date Jose Chandler MD [address] [place] [address] PCP - General Family Medicine 12/12/23 Sonam Drake NP [address] [place] [address] Nurse Practitioner Family Medicine 09/24/23 Credit Control Administrator Relationship Specialty Start Date End Date Jose Chandler MD [address] [place] [address] PCP - General Family Medicine 12/12/23 Sonam Drake, RONALDO Nurse Practitioner Family Medicine 09/24/23 Za Wilkerson, RONALDO [address] [place], [place] Nurse Practitioner Neurology 04/21/24 Sivan Villegas DO [address] [place] [address] Referring Physician Neurology 04/21/24 Credit Control Administrator Relationship Specialty Start Date End Date Jose Chandler MD [address] [place] [address] PCP - General Family Medicine 12/12/23 Sonam Drake, RONALDO Nurse Practitioner Family Medicine 09/24/23 Za Wilkerson NP [address] [place], [place] Nurse Practitioner Neurology 04/21/24 Sivan Villegas DO [address] [place] [address] Referring Physician Neurology 04/21/24 Credit Control Administrator Relationship Specialty Start Date End Date Jose Chandler MD [address] [place] [address] PCP - General Family Medicine 12/12/23 Sonam Drake NP Nurse Practitioner Family Medicine 09/24/23 Za Wilkerson NP [address] [place], [place] Nurse Practitioner Neurology 04/21/24 Sivan Villegas DO [address] [place], [place] [id number] Referring Physician Neurology 04/21/24 Credit Control Administrator Relationship Specialty Start Date End Date Jose Chandler MD [address] [place] [address] PCP - General Family Medicine 12/12/23 Sonam Drake NP Nurse Practitioner Family Medicine 09/24/23 Za Wilkerson NP [address] [place], [place] Nurse Practitioner Neurology 04/21/24 Sivan Villegas DO [address] [place], [place] [phone] Referring Physician Neurology 04/21/24 Credit Control Administrator Relationship Specialty Start Date End Date Jose Chandler MD [address] [place] [address] PCP - General Family Medicine 12/12/23 Sonam Drake NP Nurse Practitioner Family Medicine 09/24/23 Za Wilkerson NP [address] [place], [place] Nurse Practitioner Neurology 04/21/24 Sivan Villegas DO [address] [place], [place] [phone] Referring Physician Neurology 04/21/24 Credit Control Administrator Relationship Specialty Start Date End Date Jose Chandler MD [address] [place] [address] PCP - General Family Medicine 12/12/23 Sonam Drake NP Nurse Practitioner Family Medicine 09/24/23 Za Wilkerson NP [address] [facility] [place], [place] Nurse Practitioner Neurology 04/21/24 Sivan Villegas DO [address] [place], [place] [address] Referring Physician Neurology 04/21/24 Credit Control Administrator Relationship Specialty Start Date End Date Jose Chandler MD [address] [place] [address] PCP - General Family Medicine 12/12/23 Sonam Drake NP Nurse Practitioner Family Medicine 09/24/23 Za Wilkerson NP [address] [place], [place] Nurse Practitioner Neurology 04/21/24 Sivan Villegas DO [address] [place], [place] [phone] Referring Physician Neurology 04/21/24 Team Status: Active [...] May 28, 2024 End: May 28, 2024 Credit Control Administrator Relationship Specialty Start Date End Date Jose Chandler MD [address] [place] [address] PCP - General Family Medicine 12/12/23 Sonam Drake NP Nurse Practitioner Family Medicine 09/24/23 Za Wilkerson NP [address] Nurse Practitioner Neurology 04/21/24 Sivan Villegas DO [address] [id number] Referring Physician Neurology 04/21/24 Credit Control Administrator Relationship Specialty Start Date End Date Jose Chandler MD [address] [place] [address] PCP - General Family Medicine 12/12/23 Sonam Drake NP Nurse Practitioner Family Medicine 09/24/23 Za Wilkerson NP [address] [place] Nurse Practitioner Neurology 04/21/24 Sivan Villegas DO [address] [place] [address] Referring Physician Neurology 04/21/24 INFORMATION SOURCE (unrecogn ized section and content) DATE CREATED AUTHOR 09/10/2021 [facility] DATE CREATED AUTHOR AUTHOR'S ORGANIZ ATION 06/08/2022 [facility] [place] [facility] DATE CREATED AUTHOR AUTHOR'S ORGANIZ ATION 10/06/2023 [facility] DATE CREATED AUTHOR AUTHOR'S ORGANIZ ATION 05/20/2024 [facility] EPIC DATE CREATED AUTHOR AUTHOR'S ORGANIZ ATION 06/01/2024 [facility] DATE CREATED AUTHOR AUTHOR'S ORGANIZ ATION 07/08/2024 [facility] REASON FOR VISIT (unrecogniz ed section and [...] BE BASED ON THE PRIMARY CLINICAL RECORDS. [facility] [employer] [facility]. provides no warranty or guarantee of the accuracy or completeness of information in this document.
[2024-07-09 10:53] LABS: Anion Gap 11.6; BUN Creatinine Ratio 23.3; Calcium 9.3 mg/dL (8.5-10.1); Chloride 103 mmol/L (98-107); Estimated GFR (African America >60 (>=60 mL/min/1.73m^2); Estimated GFR (Non-African Ame >60 (>=60 mL/min/1.73m^2); Glucose 107 mg/dL (74-106); Potassium 4.6 mmol/L (3.5-5.1); Sodium 143 mmol/L (136-145)
[2024-07-10 14:09] LABS: PTH, Intact 14 pg/mL (15-65)
== END 2024-07-09 09:49 | disposition home or self-care (01) ==
LOC: LAB 09:52
PROVIDERS: PCP Nurse Practitioner; Visit Provider Nurse Practitioner
DX: R79.89 Other specified abnormal findings of blood chemistry (principal); E83.52 Hypercalcemia
CPT/HCPCS: 36415; 80048; 82306; 83970

== ENCOUNTER 2024-09-20 21:44 | Inpatient (IN) | payer OTHER, MEDICARE, SELFPAY ==
--- OUTSIDE RECORDS SUMMARY | 2023-12-18 07:00 | XMS_ITS ---
Author Organization [facility] in [place] Address [address] [place] [address] Care Team Providers Care Windows Infrastructure Engineer Name Role Phone Maricel HOLLIS, [facility] Primary Care Provider Suna Carroll Schmitt Unavailable [phone] Reason For Referral Reason evaluation and treat ment -- see attached order Diagnosis 1 Left foot pain (M79. 672) Referral Organization [facility] (PODIATRY) Referring Provider First Name Carroll Referring Provider Last Name Ronny Referring Provider Speciality Podiatry Referred Provider TB, Physical Therap y Referred Provider Specialty Physical Med icine and Rehabilitation Referral Priority Routine REASON FOR VISIT -2 Month Follow Up- Medications Medication SIG (Take, Route, Fr equency, Duration) Notes Start Date End Date Status Prasterone Active Pregabalin Active Rizatriptan Benzoate Active Rosuvastatin Calcium Active Semaglutide Active glyBURIDE Active hydroCHLOROthiazide Active Lactobacillus Active metFORMIN HCl Active Multivitamin Active Cholecalciferol Acti ve Diclofenac Active Divalproex Sodium ER Active Famotidine Active Glucosamine Active Alendronate Sodium A ctive Allopurinol Active Aspirin 81 Active Baclofen Active Social History Tobacco Use: Social History Observation Description Date Details (start date - stop date) Former Smoker NA - NA Tobacco Control (Standard) Question Answer Notes Tobacco use: Former smoker Vital Signs Height 60 in 12/18/2023 Temperature 97.2 degrees Fahrenheit 12/18/19 24 Heart Rate 90 /min 12/18/2023 Oximetry 94 % 12/18/2023 Encounters Encounter Location Date Provider Diagnosis [facility] (PODIATRY) [address] [place] [address] [place] [address] 12/18/2023 Carroll Jefferson Dislocation of tarsometatarsal joint of left foot, initial encounter S93.325A ; Other fracture of upper and lower end of left fibula, subsequent encounter for closed fracture with routine healing S82.832D and Left foot pain M79.672 Assessments Encounter Date Diagnosis (ICD Code) Assessment Notes Treatment Notes Treatment Clinical Notes Section Notes 12/18/2023 Dislocation of tarsometatarsal joint of left foot, initial encounter (ICD-10 - S93.325A) Patient follows up for Lisfranc variant fracture. She is doing much improved but having issues with swelling. I recommended physical therapy for strengthening range of motion and swelling management. She may transition normal shoes as tolerated. She will follow-up in 8 weeks no new x-rays are needed unless she is having pain 12/18/2023 Other fracture of upper and lower end of left fibula, subsequent encounter for closed fracture with routine healing (ICD-10 - S82.832D) 12/18/2023 Left foot pain (ICD-10 - M79.672) Plan Of Treatment Treatment Notes Assessment Notes Dislocation of tarsometatars al joint of left foot, initial encounter Patient follows up for Lisfranc variant fracture. She is doing much improved but having issues with swelling. I recommended physical therapy for strengthening range of motion and swelling management. She may transition normal shoes as tolerated. She will follow-up in 8 weeks no new x-rays are needed unless she is having pain Pending Test Test Name Order Date XR Foot LT (3 views) * 12/18/2023 Referrals Referral Date Details 12/18/2023 12/18/2023, evaluati on and treatment -- see attached order, Physical Therapy [facility] Progress Notes * Jaun WEIRB:1965 (58 yo F)Acc No.[id number]:12/18/2023 Follow Up Patient: Brian PENA Provider: Latoya Jefferson DPM, MS :1965 A ge:58 Y S ex:Female Date:12/18/2023 Address:[address] [place], [place] [id number] Pcp:Shaikh Maricel MD Check In:11:11 AM ESTCheck O ut:11:36 AM EST Subjective: * Chief Complaints: * - 2 Month Follow Up- * HPI: G eneral: Patient is S/P l eft foot fusion 1st metatarsal joint with close management of metatarsal fractures 2,4 and 5, DOS 06/10/23. Patient denies pain currently. Patient only c/o swelling in her mid foot around her toes. She states she feels like she made a good recovery and is happy with her progress. She is currently not using compression sleeve for swelling due to them being hard to put on and uncomfortable. * ROS: G eneral/Constitutional: Chills d enies. F ever d enies. W eight gain?denies. W eight loss d enies. S kin: Skin Ulcers d enies. S kin lesion(s) d enies. ? C ardiovascular: Difficulty breathing on exertion d enies. L eg cramps?denies. E elizabeth d enies. C hest pain d enies. R espiratory: Difficulty breathing d enies. D yspnea d enies.?Cough d enies. G astrointestinal: Diarrhea d enies. N ausea d enies. V omiting?denies. M usculoskeletal: Bone/Joint Symptoms d enies. C lico Pain d enies.?Leg cramps d enies. N eurologic: Numbness d enies. T ingling d enies . G ait abnormality d enies. ? H ematology: Anemia D enies. E asy bruising d enies. ? A ll Other Systems: Review of Systems (ROS) S ee HPI for details,All others negative except those mentioned in HPI. * Active Problem List K21.9 Acid reflux Modified On:06/24/2023U Status:confirmed I10 BP (high blood press ure) Modified On:06/26/2023 Status:confirmed K21.9 GERD (gastroesophage al reflux disease) Modified On:06/26/2023 Status:confirmed E11.9 Diabetes mellitus Modified On:06/26/2023U Status:confirmed I10 Essential (primary) hypertension Modified On:06/26/2023U Status:confirmed E11.9 Type 2 diabetes cory itus without complications Modified On:06/26/2023/U Status:confirmed M79.672 Left foot pain Modified On:07/03/2023/U Status:confirmed N18.9 Chronic kidney disea se, unspecified Modified On:07/06/2023/U Status:confirmed D50.9 Iron deficiency anem ia, unspecified Modified On:07/06/2023/U Status:confirmed S92.322K Displaced fracture o f second metatarsal bone, left foot, subsequent encounter for fracture with nonunion Modified On:10/07/2023/U Status:confirmed * Medical History: * Surgical History: B ack surgery Dr. Jad Grier 06/06/1992Back surgery Dr. Jad Grier 06/21/1993Tubal , emergency surgery Dr. Ryan 09/1998Hysterectomy with [address] Rivas 12/2004left foot fusion of 1st metatarsal joint with close management of metatarsal fractures 2,4,5 DOS 06/10/23 Dr Jefferson 06/10/23 * Hospitalization/Major Diagno stic Procedure: N o Hospitalization History. * Family History: N o Family History documented.. * Social History: T obacco Use: T obacco Control (Standard) T obacco use: F ormer smoker * Medications: T akingAlendronate Sodium Allopurinol Aspirin 81 Baclofen Cholecalciferol Diclofenac Divalproex Sodium ER Famotidine Glucosamine glyBURIDE hydroCHLOROthiazide Lactobacillus metFORMIN HCl Multivitamin Prasterone Pregabalin Rizatriptan Benzoate Rosuvastatin Calcium Semaglutide Taking Alendronate Sodium Taking Allopurinol Taking Aspirin 81 Taking Baclofen Taking Cholecalciferol Taking Diclofenac Taking Divalproex Sodium ER Taking Famotidine Taking Glucosamine Taking glyBURIDE Taking hydroCHLOROthiazide Taking Lactobacillus Taking metFORMIN HCl Taking Multivitamin Taking Prasterone Taking Pregabalin Taking Rizatriptan Benzoate Taking Rosuvastatin Calcium Taking Semaglutide * Allergies: n o[Allergies Verified] Objective: * Vitals: H t: 60 in, Temp:97.2F, HR:90/min, Pain scale:01-10, Oxygen sat %:94%, Ht-cm: 152.4 cm. * Examination: P odiatry Examination: SKIN: s kin intact, n o sign of infection. MUSCULOSKELETAL: N o pain to palpation, N o gross deformity, S trength equal & symmetric. NEUROLOGICAL: l ight touch sensation intact, n egative tinel's sign. VASCULAR: P edal pulses palpable, C apillary refill is brisk to toe, dorsal foot swelling is notable. No calf pain on squeeze. X -rays: x-rays were obtained & reviewed in my office. Interval bone healing across midfoot fractures. No change in alignment. Assessment: * Assessment: 1. D islocation of tarsometatarsal joint of left foot, initial encounter - S93.325A (Primary)? 2. O ther fracture of upper and lower end of left fibula, subsequent encounter for closed fracture with routine healing - S82.832D 3 . L eft foot pain - M79.672? Plan: * Treatment: 2. L eft foot pain I maging: XR Foot LT (3 views) * Referral To:Physical Therapy [facility] Physical Medicine and Rehabilitation Reason:evaluation and treatment -- see attached order * Procedure Codes: * * Sign off status: Completed Visit Status: C HK (Check Out) true * Provider: Latoya Jefferson DPM, MS Date: 02/16/2023 Generated for Danyel portillo/Roxanne/Aidenitting on: 0 09/20/2024 09:57 PM EDT History and Physical Notes * HPI (History of Present Illness) Category Sub-Category Detail Notes Category Not es General Patient is S/P left foot fusion 1st metatarsal joint with close management of metatarsal fractures 2,4 and 5, DOS 06/10/23. Patient denies pain currently. Patient only c/o swelling in her mid foot around her toes. She states she feels like she made a good recovery and is happy with her progress. She is currently not using compression sleeve for swelling due to them being hard to put on and uncomfortable. Examination Category Sub-Category Detail Notes Category Not es Podiatry Examination SKIN: skin intact, no sign of infection X-rays: x-rays were obtained & reviewed in my office. Interval bone healing across midfoot fractures. No change in alignment. MUSCULOSKELETAL: No pain to palpation , No gross deformity, Strength equal & symmetric NEUROLOGICAL: light touch sensatio n intact, negative tinel's sign VASCULAR: Pedal pulses palpabl e, Capillary refill is brisk to toe, dorsal foot swelling is notable. No calf pain on squeeze Consultation Request Notes Referral Date Referring Provider Referred Provider Not es 12/18/2023 Carroll Jefferson Em, Physical Therapy e valuation and treatment -- see attached order
--- OUTSIDE RECORDS SUMMARY | 2024-01-29 05:45 | XMS_ITS ---
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 Role Phone Maricel HOLLIS, [facility] Primary Care Provider Cheryl Sands Unavailable [phone] Allergies No Known Allergies REASON FOR VISIT 6 week f/u Social History Tobacco Use: Social History Observation Description Date Details (start date - stop date) Former Smoker NA - NA Tobacco Control (Standard) Question Answer Notes Tobacco use: Former smoker Vital Signs Weight 220 lbs 01/29/2024 Height 60 in 01/29/2024 Heart Rate 93 /min 01/29/2024 BMI 42.96 kg/m2 01/29/2024 Oximetry 94 % 01/29/2024 Encounters Encounter Location Date Provider Diagnosis [facility] (PODIATRY) [address] [place] [address] [place] [address] 01/29/2024 Cheryl Burton Dislocation of tarsometatarsal joint of left foot, subsequent encounter S93.325D ; Displaced fracture of second metatarsal bone, left foot, subsequent encounter for fracture with nonunion S92.322K and Left foot pain M79.672 Assessments Encounter Date Diagnosis (ICD Code) Assessment Notes Treatment Notes Treatment Clinical Notes Section Notes 01/29/2024 Dislocation of tarsometatarsal joint of left foot, subsequent encounter (ICD-10 - S93.325D) The patient is a 58-year-old female who is almost 8 months status post first tarsometatarsal joint fusion after she sustained a true Lisfranc fracture/dislocati on, DOS 06/10/2023. She is doing very well. She has essentially no pain and is performing activities of daily living without difficulty. X-rays show healing of the fractures with stable hardware. She was encouraged to continue activities at her tolerance and supportive shoe gear. Rcry-wta-ufgjcqg analgesia and RICE therapy as needed. Follow-up in May 2024 with weightbearing foot x-rays at that time, sooner if any issues arise. 01/29/2024 Displaced fracture of second metatarsal bone, left foot, subsequent encounter for fracture with nonunion (ICD-10 - S92.322K) 01/29/2024 Left foot pain (ICD-10 - M79.672) Plan Of Treatment Treatment Notes Assessment Notes Dislocation of tarsometatars al joint of left foot, subsequent encounter The patient is a 58-year-old female who is almost 8 months status post first tarsometatarsal joint fusion after she sustained a true Lisfranc fracture/dislocation, DOS 06/10/2023. She is doing very well. She has essentially no pain and is performing activities of daily living without difficulty. X-rays show healing of the fractures with stable hardware. She was encouraged to continue activities at her tolerance and supportive shoe gear. Lall-iue-bwupoey analgesia and RICE therapy as needed. Follow-up in May 2024 with weightbearing foot x-rays at that time, sooner if any issues arise. Pending Test Test Name Order Date XR Foot LT (3 views) * 01/29/2024 Next Appt Details Follow Up: 4 Months, Reason: Progress Notes * DESTINLexaiDOB:1965 (58 yo F)Acc No.[id number]:01/29/2024 Follow Up Patient: Brian PENA Provider: Acacia Burton PA-C :1965 A ge:58 Y S ex:Female Date:01/29/2024 Address:[address] [place], [place] [phone] Pcp:Shaikh Maricel MD Check In:09:39 AM ESTCheck O ut:09:59 AM EST Subjective: * Chief Complaints: * 6 week f/u * HPI: G eneral: Patient is S/P l eft foot fusion 1st metatarsal joint with close management of metatarsal fractures 2,4 and 5, DOS 06/10/23. Patient has no pain, reports swelling nearly gone. PT went well. In normal shoes. No complaints. * ROS: G eneral/Constitutional: Chills d enies. [...] Active Problem List K21.9 Acid reflux Modified On:06/24/2023 Status:confirmed I10 BP (high blood press ure) Modified On:06/26/2023 Status:confirmed K21.9 GERD (gastroesophage al reflux disease) Modified On:06/26/2023 Status:confirmed E11.9 Diabetes mellitus Modified On:06/26/2023 Status:confirmed I10 Essential (primary) hypertension Modified On:06/26/2023 Status:confirmed E11.9 Type 2 diabetes cory itus without complications Modified On:06/26/2023 Status:confirmed M79.672 Left foot pain Modified On:07/03/2023 Status:confirmed N18.9 Chronic kidney disea se, unspecified Modified On:07/06/2023 Status:confirmed D50.9 Iron deficiency anem ia, unspecified Modified On:05/25/2024W/U Status:confirmed S92.322K Displaced fracture o f second metatarsal bone, left foot, subsequent encounter for fracture with nonunion Modified On:10/07/2023W/U Status:confirmed * Medical History: * Surgical History: [...] obacco use: F ormer smoker * Medications: * Allergies: N .K.D.A.no[Allergies Verified] Objective: * Vitals: W t:220lbs, Ht: 60 in, HR:93/min, BMI:42.96Index, Pain scale:01-10, Oxygen sat %:94%, Ht-cm: 152.4 cm, Wt-k.79 kg. * Examination: P odiatry Examination: SKIN: s kin intact, n o sign of infection. MUSCULOSKELETAL: L eft foot and ankle are rectus No pain with palpation of the midfoot No pain with passive range of motion of the medial column Strength 5/5 in all planes. NEUROLOGICAL: L ight touch sensation is intact in all nerve distributions, normal muscle tone. VASCULAR: P alpable pedal pulses, mild swelling of the operative foot, No calf pain on squeeze. X -ray 3 view foot obtained in the office today and reviewed: Stable alignment and healing of the fractures of the 2nd through 5th metatarsals. Hardware is stable without evidence of loosening or failure at the 1st tarsometatarsal joint. Increased bony consolidation noted at the first tarsometatarsal joint. Assessment: * Assessment: 1. D islocation of tarsometatarsal joint of left foot, subsequent encounter - S93.325D (Primary) 2 . D isplaced fracture of second metatarsal bone, left foot, subsequent encounter for fracture with nonunion - S92.322K 3 . L eft foot pain - M79.672 & #160; Plan: * Treatment: 2. L eft foot pain I maging: XR Foot LT (3 views) * * Procedure Codes: * Follow Up: 4 Months * * Sign off status: Completed Visit Status: C HK (Check Out) true * Provider: Acacia Burton PA-C Date: 1 03/31/2023 Generated for Zahidai ng/Fasangeethag/eTransmitting on: 0 09/20/2024 09:57 PM EDT History and Physical Notes * HPI (History of Present Illness) Category Sub-Category Detail Notes Category Not es General Patient is S/P left foot fusion 1st metatarsal joint with close management of metatarsal fractures 2,4 and 5, DOS 06/10/23. Patient has no pain, reports swelling nearly gone. PT went well. In normal shoes. No complaints. Examination Category Sub-Category Detail Notes Category Not es Podiatry Examination SKIN: skin intact, no sign of infection X-ray 3 view foot obtained in the office today and reviewed: Stable alignment and healing of the fractures of the 2nd through 5th metatarsals. Hardware is stable without evidence of loosening or failure at the 1st tarsometatarsal joint. Increased bony consolidation noted at the first tarsometatarsal joint. MUSCULOSKELETAL: Left foot and ankle are rectus No pain with palpation of the midfoot No pain with passive range of motion of the medial column Strength 5/5 in all planes NEUROLOGICAL: Light touch sensatio n is intact in all nerve distributions, normal muscle tone VASCULAR: Palpable pedal pulse s, mild swelling of the operative foot, No calf pain on squeeze
--- OUTSIDE RECORDS SUMMARY | 2024-06-10 06:00 | XMS_ITS ---
Author Organization The [facility] in [place] Address [address] [place] [address] Care Team Providers Care Education And Development Manager Name Role Phone Maricel HOLLIS, Primary Care Provider Carroll Hidalgo [phone] REASON FOR VISIT 1 year f/u from initial injury Encounters Encounter Location Date Provider Diagnosis [facility] (PODIATRY) [address] [place] [address] [place] [address] 06/10/2024 Carroll Jefferson Plan Of Treatment No Information Progress Notes * Jaun WEIRB:1965 (58 yo F)Acc No.[id number]:06/10/2024 UNLOCKED PROGRESS NOTE Follow Up Patient: Brian PENA Provider: Latoya Jefferson DPM, MS :1965 A ge:58 Y S ex:Female Date:06/10/2024 Address:[address] [place], [place] [address] Pcp:Shaikh Maricel MD Subjective: * Chief Complaints: * 1 . 1 year f/u from initial injury. * Medical History: Objective: * Vitals: Assessment: Plan: * Treatment: * * Electronic signature of Freddie Jefferson DPM on 09/20/2024 at 09:57 PM EDT Sign off status: Pending Visit Status: O FF CANC (OFFICE CANCEL) * Provider: Latoya Jefferson DPM, MS Date: 0 06/10/2024 Generated for Danyel portillo/Roxanne/Mohamud on: 0 09/20/2024 09:57 PM EDT
[2024-09-20 21:47] VITALS: BP 137/90; PULSE 100; TEMP 36.6; O2SAT 96
--- OUTSIDE RECORDS SUMMARY | 2024-09-20 21:57 | XMS_ITS | Encounter Summary ---
Author Organization [facility] Address [address] [place] [address] Care Team Providers Care Straightener Hand Name Role Phone Ijeoma Drake MIXER FOAM RUBBER Unavailable [phone] Jose Chandler MD Primary Care Provider [phone] Za Wilkerson MIXER FOAM RUBBER Unavailable [phone] Madhuri Banda DO Unavailable [phone] Encounter Details Date Type Department Care Team (Late Contact Info) Description 06/03/2024 Orders Only [facility] [address] [place] [phone] Ameena Vera NP [address] [place] [address] Social History Tobacco Use Types Packs/Day Years Used Date Smoking Tobacco: Every Day Cigarettes 1 15 Passive Smoke Exposure: Past Smokeless Tobacco: Never Alcohol Use Standard Drinks/Week Comments Never 0 (1 standard drink = 0.6 oz pur e alcohol) B1300 Health Literacy Answer Date Recor ded How often do you need to hav e someone help you when you read instructions, pamphlets, or other written material from your doctor or pharmacy? Patient declines to respond 10/02/2023 Social Connection and Isolat ion Panel [NHANES] Answer Date Recorded In a typical week, how many times do you talk on the phone with family, friends, or neighbors? More than three times a week 10/02/2023 How often do you get togethe r with friends or relatives? Twice a week 10/02/2023 How often do you attend chur ch or congregational services? Patient declined 10/02/2023 Do you belong to any clubs o r organizations such as roman catholic groups, unions, fraternal or athletic groups, or school groups? Patient declined 10/02/2023 How often do you attend meet ings of the clubs or organizations you belong to? Patient declined 10/02/2023 Are you , , di vorced, , never , or living with a partner? 10/02/2023 AUDIT-C Answer Date Recorded Q1: How often do you have a drink containing alc ohol? Monthly or less 10/02/2023 Q2: How many drinks containi ng alcohol do you have on a typical day when you are drinking? 1 or 2 10/02/2023 Q3: How often do you have si x or more drinks on one occasion? Never 10/02/2023 Overall Financial Resource Strain (CARDIA) Answe r Date Recorded How hard is it for you to pa y for the very basics like food, housing, medical care, and heating? Patient declined 10/02/2023 PHQ-2 Answer Date Recorded Patient Health Questionnaire-2 Score 0 10/03/2023 [facility] - Occupational Stress Questionnaire Answer Date Recorded Do you feel stress - tense, restless, nervous, or anxious, or unable to sleep at night because your mind is troubled all the time - these days? To some extent 10/02/2023 Exercise Vital Sign Answer Date Recorde d On average, how many days pe r week do you engage in moderate to strenuous exercise (like a brisk walk)? 0 days 10/02/2023 On average, how many minutes do you engage in exercise at this level? 0 min 10/02/2023 Hunger Vital Sign Answer Date Recorded Within the past 12 months, y ou worried that your food would run out before you got the money to buy more. Patient declined Within the past 12 months, t he food you bought just didn't last and you didn't have money to get more. Patient declined PRAPARE - Transportation Answer Date Re corded In the past 12 months, has l ack of transportation kept you from medical appointments or from getting medications? Patient declined 10/02/2023 In the past 12 months, has l ack of transportation kept you from meetings, work, or from getting things needed for daily living? Patient declined 10/02/2023 Housing Stability Vital Sign Answer Evan e Recorded In the last 12 months, was t here a time when you were not able to pay the mortgage or rent on time? Patient declined 10/02/19 24 Number of Times Moved in the Last Year Not on fi le 10/02/2023 At any time in the past 12 m [facility], were you homeless or living in a residential (including now)? Patient declined 10/02/2023 Comments Unknown Sex and Gender Information Value Date Recorded Sex Assigned at Not on file Legal Sex Female 6:48 PM EDT Gender Identity Not on file Sexual Orientation Not on file documented as of this encounter Plan of Treatment Upcoming Encounters Date Type Department Care Team (Late st Contact Info) Description 09/30/2024 2:40 PM EDT Office Visit [facility] [place] [facility] [address] [place] [address] Kasi Bennett MD [address] [place] [address] 11/23/2024 1:00 PM EDT Office Visit [facility] [address] [place] [address] Ameena Vera NP [address] [place] [address] 03/30/2025 11:15 AM EST Office Visit [facility] [place] [facility] [address] [place] [address] Elida Monroy MD [address] [place] [address] documented as of this encounter Visit Diagnoses Not on filedocumented in this encounter Care Teams Straightener Hand Relationship Specialty Start Date End Date Jose Chandler MD [address] [place] [address] PCP - General Family Medicine 12/12/23 Ijeoma Drake NP Nurse Practitioner Family Medicine 09/24/23 Za Wilkerson NP [address] [place] [address] Nurse Practitioner Neurology 04/21/24 Madhuri Banda DO [address] [place] [address] Referring Physician Neurology 04/21/24 documented as of this encounter
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
--- OUTSIDE RECORDS SUMMARY | 2024-09-20 21:57 | XMS_ITS | Encounter Summary ---
Author Organization [facility] Address [address] [place] [address] Care Team Providers Care Stave Log Cut Off Saw Operator Name Role Phone Shaikh BUNNY Connelly Primary Care Provider [phone] Shaikh BUNNY Connelly Primary Care Provider [phone] Jose Chandler MD Primary Care Provider [phone] Ijeoma Drake REHAB RN Unavailable [phone] Unallocated, Noms Provider Primary Care Provi shayna Jose Chandler MD Primary Care Provider [phone] Za Wilkerson REHAB RN Unavailable [phone] Madhuri Banda DO Unavailable [phone] Encounter Details Date Type Department Care Team (Late st Contact Info) Description 03/21/2023 Orders Only [facility] [address] [place] [address] Shaikh Connelly MD [address] [place] [address] Social History Tobacco Use Types Packs/Day Years Used Date Smoking Tobacco: Former Cigarettes Smokeless Tobacco: Never Alcohol Use Standard Drinks/Week Comments Never 0 (1 standard drink = 0.6 oz pur e alcohol) Comments Unknown Sex and Gender Information Value [...] [facility] [address] [place] [address] Kasi Bennett MD [address] [place] [address] 11/23/2024 1:00 PM EDT Office Visit [facility] [address] [place] [address] Ameena Vera NP [address] [place] [address] 03/30/2025 11:15 AM EST Office Visit [facility] [address] [place] [address] Elida Monroy MD [address] [place] [address] documented as of this encounter Procedures Procedure Name Priority Date/Time Associated Diagnosis Comments MAMM BILATERAL DIAG W/CAD (D) Routine 03/20/2023 2:48 PM EST documented in this encounter Results * MAMM BILATERAL DIAG W/CAD (D) (03/20/2023 2:48 PM EST) Anatomical Region Laterality Modality Radiographic Eliana ging us Shaikh Maricel HOLLIS IMG XR PROCEDURES Final Result documented in this encounter Visit Diagnoses Not on filedocumented in this encounter Care Teams Stave Log Cut Off Saw Operator Relationship Specialty Start Date End Date Shaikh Connelly MD PCP - General Internal Medicine 11/11/22 05/01/23 Shaikh Connelly MD [address] [place] [address] PCP - General Internal Medicine 05/02/23 09/23/23 Jose Chandler MD [address] [place] [address] PCP - General Family Medicine 09/24/23 11/25/23 Unallocated, Timur Hernandez MD [address] [place] [address] PCP - General Family Medicine 11/26/23 12/11/23 Jose Chandler MD [address] [place] [address] PCP - General Family Medicine 12/12/23 Ijeoma Drake NP [address] [place] [address] Nurse Practitioner Family Medicine 09/24/23 Za Wilkerson NP [address] [place] [address] Nurse Practitioner Neurology 04/21/24 Madhuri Banda DO [address] [place] [address] Referring Physician Neurology 04/21/24 documented as of this encounter
--- OUTSIDE RECORDS SUMMARY | 2024-09-20 21:57 | XMS_ITS | Encounter Summary ---
Author Organization [facility] Address [address] [place] [address] Care Team Providers Care Double Cutter Name Role Phone Ijeoma Drake RUSSIAN TEACHER Unavailable [phone] Jose Chandler MD Primary Care Provider [phone] Za Wilkerson RUSSIAN TEACHER Unavailable [phone] Madhuri Banda DO Unavailable [phone] Encounter Details Date Type Department Care Team (Late Contact Info) Description 01/30/2024 Clinisync Result Encounter [facility] External Department Unsolicited Provider, Generic External Data Social History Tobacco Use Types Packs/Day Years Used Date Smoking Tobacco: Every Day Cigarettes Passive Smoke Exposure: Past Smokeless Tobacco: Never [...] often do you attend chur ch or religion services? Patient declined 10/02/2023 Do you belong to any clubs o r organizations such as anabaptist groups, unions, fraternal or athletic groups, or [...] Recorded Patient Health Questionnaire-2 Score 0 10/03/2023 [facility] - Occupational [...] time in the past 12 m [facility], were you homeless or living in a snf (including now)? Patient declined 10/02/2023 Comments Unknown [...] EDT Office Visit [facility] [address] [place] [address] Kasi Bennett MD [address] [place] [address] 11/23/2024 1:00 PM EDT Office Visit [facility] [address] [place] [address] Ameena Vera, RUSSIAN TEACHER [address] [place] [address] 03/30/2025 11:15 AM EST Office Visit [facility] [address] [place] [address] Elida Monroy MD [address] [place] [address] documented as of this encounter Procedures Procedure Name Priority Date/Time Associated Diagnosis Comments XR FOOT LT MIN 3V 01/30/2024 5:3 8 AM EST documented in this encounter Results * XR FOOT LT MIN 3V (01/30/2024 5:38 AM EST) Anatomical Region Laterality Modality Other 01/30/2024 5:38 AM EST Narrative 01/30/2024 5:41 AM EST The [address] [address] XRay Report Signed Patient: KARINA DE OLIVEIRA MR#: [id number] : 1965 Acct:[id number] Age/Sex: 58 / F ADM Date: 01/29/24 Loc: RAD Attending Dr: Sussy Jefferson D.P.M. Ordering Physician: Sussy Jefferson D.P.M. Date of Service: 01/29/24 Procedure(s): XR foot LT min 3V Accession Number(s): [id number] cc: IJEOMA DRAKE; Sussy Jefferson D.P.M. The [address] [address] Patient Name: KARINA DE OLIVEIRA MRN: [id number] date: 1965 Sex: F Assigned Patient Location: [facility] Current Patient Location: Accession/Order Number: [id number] Exam Date: 01/29/2024 09:28 Report Date: 01/30/2024 [...] Dictated By: Navid Cortes M.D. Signed By: 01/30/24 0541 DD/ 0538 TD/TT: Heel Builder Machine: Procedure Note Radiology, Radiologist, MD - 01/30/[address] [address] XRay Report Signed Patient: KARINA DE OLIVEIRA KMR#: [id number] : 1965Acct:[id number] Age/Sex: 58 / FADM Date: 01/29/24 Loc: RAD Attending Dr: Sussy Jefferson D.P.M. Ordering Physician: Sussy Jefferson D.P.M. Date of Service: 01/29/24 Procedure(s): XR foot LT min 3V Accession Number(s): [id number] cc: IJEOMA DRAKE; Sussy Jefferson D.P.M. The [place] [address] Patient Name: KARINA DE OLIVEIRA MRN: [id number] date: 1965 Sex: F Assigned Patient Location: [facility] Current Patient Location: Accession/Order Number: [id number] Exam Date: 01/29/2024 09:28 Report Date: 01/30/2024 05:38 At the request of: SUSSY JEFFERSON Procedure: XR foot LT min 3V PROCEDURE: XR foot LT min 3V HISTORY: Left Foot Pain COMPARISON: XR foot left 12/18/2023 FINDINGS: BONES:Mechanical fusion of the first tarsal-metatarsal joint via dorsalplate and screws. Mild degenerative changes the first metatarsophalangeal joint. Remote fracture and partial healing of second metatarsal diaphysis. [place] plantar arch. SOFT TISSUES:No visible soft tissue swelling. EFFUSION:None visible. OTHER: Negative. XR/XR foot LT min 3V IMPRESSION: 1. Stable surgical changes without evidence of hardware failure or changein alignment. 2. Stable alignment and ongoing bone healing of second metatarsalfracture. Electronically authenticated by: NAVID CORTES Date: 01/30/2024 05:38 Dictated By: Navid Cortes M.D. Signed By:01/30/2441 DD/ 7 TD/TT: Heel Builder Machine: us Generic External Data Provider [facility] Final Result documented in this encounter Visit Diagnoses Not on filedocumented in this encounter Care Teams Double Cutter Relationship Specialty Start Date End Date Jose Chandler MD [address] [place] [address] PCP - General Family Medicine 12/12/23 Ijeoma Drake NP Nurse Practitioner Family Medicine 09/24/23 Za Wilkerson NP [address] [place] [address] Nurse Practitioner Neurology 04/21/24 Madhuri Banda DO [address] [place] [address] Referring Physician Neurology 04/21/24 documented as of this encounter
--- OUTSIDE RECORDS SUMMARY | 2024-09-20 21:57 | XMS_ITS | Encounter Summary ---
Author Organization [facility] Address [address] [place] [address] Care Team Providers Care Elevator Repairer Apprentice Name Role Phone Shaikh BUNNY Connelly Primary Care Provider [phone] Jose Chandler MD Primary Care Provider [phone] Ijeoma Drake GAMING COMMISSIONER Unavailable [phone] Unallocated, Timur Hernandez MD Primary Care Provi shayna Jose Chandler MD Primary Care Provider [phone] Za Wilkerson GAMING COMMISSIONER Unavailable [phone] Madhuri Banda DO Unavailable [phone] Encounter Details Date Type Department Care Team (Late st Contact Info) Description 07/03/2023 Orders Only [facility] [address] [place] [address] Carroll Jefferson Social History Tobacco Use Types Packs/Day Years Used Date Smoking Tobacco: Former Cigarettes Passive Smoke Exposure: Past Smokeless Tobacco: Never Alcohol Use Standard Drinks/Week Comments Never 0 (1 standard drink = 0.6 oz pur e alcohol) PHQ-2 Answer Date Recorded Patient Health Questionnaire-2 Score 0 07/04/2023 Comments Unknown Sex and Gender Information Value Date Recorded Sex Assigned at Not on file Legal Sex Female 6:48 PM EDT Gender Identity Not on file Sexual Orientation Not on file documented as of this encounter Functional Status * Over the past 2 weeks, how often have you been bothered by any of the following problems? Question Answer Date of Assessment Author Little interest or pleasure in doing things Not at all 07/04/2023 1:18 PM EDT Stiven Omalley M A Feeling down, depressed, or hopeless Not at all 07/04/2023 1:18 PM EDT Stiven Omalley M A Patient Health Questionnaire -2 Score 0 07/04/2023 1:18 PM EDT Stiven Omalley M A documented as of this encounter Plan of Treatment Upcoming Encounters Date Type Department Care Team (Late st Contact Info) Description 09/30/2024 2:40 PM EDT Office Visit [facility] [address] [place] [address] Kasi Bennett MD [address] [place] [address] 11/23/2024 1:00 PM EDT Office Visit [facility] [address] [place] [address] Ameena Vera NP [address] [place] [address] 03/30/2025 11:15 AM EST Office Visit [facility] [address] [place] [address] Elida Monroy MD [address] [place] [address] documented as of this encounter Procedures Procedure Name Priority Date/Time Associated Diagnosis Comments XR FOOT 3+ VIEWS LEFT Routine 07/03/2023 2:33 PM EDT documented in this encounter Results * XR foot 3+ views left (07/03/2023 2:33 PM EDT) Anatomical Region Laterality Modality Lower Extremities, Foot Left Radiogra phic Imaging Carroll Jefferson IMElijah XR PROCEDURES Final Resul t documented in this encounter Visit Diagnoses Not on filedocumented in this encounter Care Teams Elevator Repairer Apprentice Relationship Specialty Start Date End Date Shaikh Connelly MD [address] [place] [address] PCP - General Internal Medicine 05/02/23 09/23/23 Jose Chandler MD [address] [place] [address] PCP - General Family Medicine 09/24/23 11/25/23 Unallocated, Timur Hernandez MD [address] [place] [address] PCP - General Family Medicine 11/26/23 12/11/23 Jose Chandler MD [address] [place] [address] PCP - General Family Medicine 12/12/23 Ijeoma Drake NP [address] [place] [address] Nurse Practitioner Family Medicine 09/24/23 Za Wilkerson NP [address] [place] [address] Nurse Practitioner Neurology 04/21/24 Madhuri Banda DO [address] [place] [address] Referring Physician Neurology 04/21/24 documented as of this encounter
--- OUTSIDE RECORDS SUMMARY | 2024-09-20 21:57 | XMS_ITS | Encounter Summary ---
Author Organization [facility] Address [address] [place] [address] Care Team Providers Care Type Rolling Machine Operator Name Role Phone Ijeoma Drake WHEEL ROLLER Unavailable [phone] Jose Chandler MD Primary Care Provider [phone] Za Wilkerson WHEEL ROLLER Unavailable [phone] Madhuri Banda DO Unavailable [phone] Reason for Visit * Reason Comments Med Refill Encounter Details Date Type Department Care Team (Late st Contact Info) Description 05/06/2024 Refill [facility] [address] [place] [address] Ameena Vera NP [address] [place] [address] Bilateral lower extremity edema Social History Tobacco Use Types Packs/Day Years [...] often do you attend chur ch or christianity services? Patient declined 10/02/2023 Do you belong to any clubs o r organizations such as yazdanism groups, unions, fraternal or athletic groups, or [...] Recorded Patient Health Questionnaire-2 Score 0 10/03/2023 [facility] - Occupational Stress Questionnaire Answer Date Recorded [...] any time in the past 12 m [facility], were you homeless or living in a skilled nursing (including now)? Patient declined 10/02/2023 Comments Unknown [...] [facility] [address] [place] [address] Kasi Bennett MD [address] [place] [address] 11/23/2024 1:00 PM EDT Office Visit [facility] [address] [address] Ameena Vera NP [address] [place] [address] 03/30/2025 11:15 AM EST Office Visit [facility] [address] [place] [address] Elida Monroy MD [address] [place] [address] documented as of this encounter Visit Diagnoses Diagnosis Bilateral lower extremity edema documented in this encounter Care Teams Type Rolling Machine Operator Relationship Specialty Start Date End Date Jose Chandler MD [address] [place] [address] PCP - General Family Medicine 12/12/23 Ijeoma Drake NP Nurse Practitioner Family Medicine 09/24/23 Za Wilkerson NP [address] [place] [address] Nurse Practitioner Neurology 04/21/24 Madhuri Banda DO [address] [place] [address] Referring Physician Neurology 04/21/24 documented as of this encounter
--- OUTSIDE RECORDS SUMMARY | 2024-09-20 21:57 | XMS_ITS | Encounter Summary ---
Author Organization [facility] Address [address] [place] [address] Care Team Providers Care Pipe Organ Installer Name Role Phone Shaikh BUNNY Connelly Primary Care Provider [phone] Jose Chandler MD Primary Care Provider [phone] Ijeoma Drake BATCH DUMPER Unavailable [phone] Unallocated, Timur Hernandez MD Primary Care Provi shayna Jose Chandler MD Primary Care Provider [phone] Za Wilkerson BATCH DUMPER Unavailable [phone] Madhuri Banda DO Unavailable [phone] Encounter Details Date Type Department Care Team (Late st Contact Info) Description 08/14/2023 Clinisync Result Encounter [facility] External Department Unsolicited Provider, Generic External Data Social History Tobacco Use Types Packs/Day Years Used Date Smoking Tobacco: Former Cigarettes Passive Smoke Exposure: Past Smokeless Tobacco: Never Alcohol Use Standard Drinks/Week Comments Never 0 (1 standard drink = 0.6 oz pur e alcohol) PHQ-2 Answer Date Recorded Patient Health Questionnaire-2 Score 0 08/05/2023 Comments Unknown Sex and Gender Information Value Date Recorded Sex Assigned at Not on file Legal Sex Female 6:48 PM EDT Gender Identity Not on file Sexual Orientation Not on file documented as of this encounter Plan of Treatment Upcoming Encounters Date Type Department Care Team (Late Contact Info) Description 09/30/2024 2:40 PM EDT Office Visit [facility] [address] [place] [address] Kasi Bennett MD [address] [place] [address] 11/23/2024 1:00 PM EDT Office Visit [facility] [address] [place] [address] Ameena Vera NP [address] [place] [address] 03/30/2025 11:15 AM EST Office Visit [facility] [address] [place] [address] Elida Monroy MD [address] [place] [address] documented as of this encounter Procedures Procedure Name Priority Date/Time Associated Diagnosis Comments XR FOOT LT MIN 3V 08/14/2023 3:3 0 PM EDT documented in this encounter Results * XR FOOT LT MIN 3V (08/14/2023 3:30 PM EDT) Anatomical Region Laterality Modality Other 08/14/2023 3:30 PM EDT Narrative 08/14/2023 3:32 PM EDT The [address] [address] XRay Report Signed Patient: KARINA DE OLIVEIRA MR#: [id number] : 1965 Acct:[id number] Age/Sex: 57 / F ADM Date: 08/13/23 Loc: EC Attending Dr: Sussy Jefferson D.P.M. Ordering Physician: Sussy Jefferson D.P.M. Date of Service: 08/13/23 Procedure(s): XR foot LT min 3V Accession Number(s): [id number] cc: Shaikh Erica Connelly; Sussy Jefferson D.P.M. The [place] [address] Patient Name: KARINA DE OLIVEIRA MRN: [id number] date: 1965 Sex: F Assigned Patient Location: Current Patient Location: Accession/Order Number: [id number] Exam Date: 08/13/2023 14:05 Report Date: 08/14/2023 15:30 At the request of: SUSSY JEFFERSON Procedure: XR foot LT min 3V PROCEDURE: XR foot LT min 3V HISTORY: LEFT FOOT PAIN COMPARISON: XR foot left 07/24/2023 FINDINGS: BONES:Prior mechanical fusion the first tarsal metatarsal joint. Prior nondisplaced fracture of second metatarsal mid diaphysis with minimal increased density at fracture line. No appreciable callus formation along the margins. Stable nondisplaced fracture through base of 5th metatarsal; minimally increased density. SOFT TISSUES:No visible soft tissue swelling. EFFUSION:None visible. OTHER: Negative. XR/XR foot LT min 3V IMPRESSION: 1. Stable surgical changes without evidence of hardware failure or change in alignment. 2. Stable normal alignment is maintained of the second and 5th metatarsal fractures with mild changes of early bone healing. Electronically authenticated by: NAVID CORTES Date: 08/14/2023 15:30 Dictated By: Navid Cortes M.D. Signed By: 08/14/23 1532 DD/ 1530 TD/TT: Hairpiece Stylist: Procedure Note Radiology, Radiologist, MD - 08/14/2023 [place] [address] XRay Report Signed Patient: KARINA DE OLIVEIRA KMR#: [id number] : 1965Acct:[id number] Age/Sex: 57 / FADM Date: 08/13/23 Loc: EC Attending Dr: Sussy Jefferson D.P.M. Ordering Physician: Sussy Jefferson D.P.M. Date of Service: 08/13/23 Procedure(s): XR foot LT min 3V Accession Number(s): [id number] cc: Shaikh Erica Connelly; Sussy Jefferson D.P.M. [address] [address] Patient Name: KARINA DE OLIVEIRA MRN: [id number] date: 1965 Sex: F Assigned Patient Location: Current Patient Location: Accession/Order Number: [id number] Exam Date: 08/13/2023 14:05 Report Date: 08/14/2023 15:30 At the request of: SUSSY JEFFERSON Procedure: XR foot LT min 3V PROCEDURE: XR foot LT min 3V HISTORY: LEFT FOOT PAIN COMPARISON: XR foot left 07/24/2023 FINDINGS: BONES:Prior mechanical fusion the first tarsal metatarsal joint. Prior nondisplaced fracture of second metatarsal mid diaphysis with minimal increased density at fracture line. No appreciable callus formation along themargins. Stable nondisplaced fracture through base of 5th metatarsal; minimally increased density. SOFT TISSUES:No visible soft tissue swelling. EFFUSION:None visible. OTHER: Negative. XR/XR foot LT min 3V IMPRESSION: 1. Stable surgical changes without evidence of hardware failure or changein alignment. 2. Stable normal alignment is maintained of the second and 5th metatarsal fractures with mild changes of early bone healing. Electronically authenticated by: NAVID CORTES Date: 08/14/2023 15:30 Dictated By: Navid Cortes M.D. Signed By:08/14/23 1532 DD/ 1530 TD/TT: Hairpiece Stylist: Generic External Data Provider [facility] Final Result documented in this encounter Visit Diagnoses Not on filedocumented in this encounter Care Teams Pipe Organ Installer Relationship Specialty Start Date End Date Shaikh Connelly MD [address] [place] [address] PCP - General Internal Medicine 05/02/23 09/23/23 Jose Chandler MD [address] [place] [address] PCP - General Family Medicine 09/24/23 11/25/23 Unallocated, Timur Hernandez MD [address] [place] [address] PCP - General Family Medicine 11/26/23 12/11/23 Jose Chandler MD [address] [place] [address] PCP - General Family Medicine 12/12/23 Ijeoma Drake NP [address] [place] [address] Nurse Practitioner Family Medicine 09/24/23 Za Wilkerson NP [address] [place] [address] Nurse Practitioner Neurology 04/21/24 Madhuri Banda DO [address] [place] [address] Referring Physician Neurology 04/21/24 documented as of this encounter
--- OUTSIDE RECORDS SUMMARY | 2024-09-20 21:57 | XMS_ITS | Encounter Summary ---
Author Organization [facility] Address [address] [facility] [place] [address] Care Team Providers Care Manager Aerospace Name Role Phone Jose Chandler MD Primary Care Provider [phone] Ijeoma Drake MACHINING SUPERVISOR Unavailable [phone] Unallocated, Noms Provider Primary Care Provi shayna Jose Chandler MD Primary Care Provider [phone] Za Wilkerson MACHINING SUPERVISOR Unavailable [phone] Madhuri Banda DO Unavailable [phone] Encounter Details Date Type Department Care Team (Late st Contact Info) Description 10/17/2023 Clinisync Result Encounter [facility] External Department Unsolicited [...] week 10/02/2023 How often do you attend [facility] or pentecostal services? Patient declined 10/02/2023 Do you belong to any clubs o r organizations such as congregational groups, unions, fraternal or athletic groups, or [...] Recorded Patient Health Questionnaire-2 Score 0 10/03/2023 [facility] Occupat ional [facility] - Occupational Stress Questionnaire Answer Date [...] any time in the past 12 m [facility], were you homeless or living in a jail (including now)? Patient declined 10/02/2023 Comments Unknown Sex and Gender Information Value Date Recorded Sex Assigned at Not on file Legal Sex Female 6:48 PM EDT Gender Identity Not on file Sexual Orientation Not on file documented as of this encounter Plan of Treatment Upcoming Encounters Date Type Department Care Team (Late st Contact Info) Description 09/30/2024 2:40 PM EDT Office Visit [facility] [address] [place] [address] Kasi Bennett MD [address] [place] [address] 11/23/2024 1:00 PM EDT Office Visit [facility] [address] [place] [address] Ameena Vera NP [address] [place] [address] 03/30/2025 11:15 AM EST Office Visit [facility] [address] [place] [address] Elida Monroy MD [address] [place] [address] documented as of this encounter Procedures Procedure Name Priority Date/Time Associated Diagnosis Comments XR FOOT LT MIN 3V 10/17/2023 6:5 8 AM EDT documented in this encounter Results * XR FOOT LT MIN 3V (10/17/2023 6:58 AM EDT) Anatomical Region Laterality Modality Other 10/17/2023 6:58 AM EDT Narrative 10/17/2023 7:01 AM EDT [facility] [place] [id number] XRay Report Signed Patient: KARINA DE OLIVEIRA MR#: [id number] : 1965 Acct:[id number] Age/Sex: 57 / F ADM Date: 10/16/23 Loc: EC Attending Dr: Sussy Jefferson D.P.M. Ordering Physician: Sussy Jefferson D.P.M. Date of Service: 10/16/23 Procedure(s): XR foot LT min 3V Accession Number(s): [id number] cc: Shaikh Erica Connelly; Sussy Jefferson D.P.M. The [place] [address] Patient Name: KARINA DE OLIVEIRA MRN: [id number] date: 1965 Sex: F Assigned Patient Location: Current Patient Location: Accession/Order Number: [id number] Exam Date: 10/16/2023 11:20 Report Date: 10/17/2023 06:58 At the request of: SUSSY JEFFERSON Procedure: XR foot LT min 3V PROCEDURE: XR foot LT min 3V HISTORY: LEFT FOOT PAIN COMPARISON: XR foot left 09/03/2023 FINDINGS: BONES:Prior fracture of second metatarsal diaphysis with prominent callus formation seen on today's study. Slight lateral apex angulation, unchanged. Prior mechanical fusion of the first tarsal-metatarsal joint via dorsal plate and screws. Chronic degenerative changes at the tarsal-metatarsal joints. SOFT TISSUES:Prominent dorsal soft tissue swelling. EFFUSION:None visible. OTHER: Negative. XR/XR foot LT min 3V IMPRESSION: 1. Stable alignment with changes of ongoing bone healing involving the second metatarsal fracture. 2. Stable surgical changes without evidence of hardware failure. Electronically authenticated by: NAVID CORTES Date: 10/17/2023 06:58 Dictated By: Navid Cortes M.D. Signed By: 10/17/23 0701 DD/ 0658 TD/TT: Medical Billing And Coding Specialist: Procedure Note Radiology, Radiologist, MD - 10/17/2023 [facility] [place] [id number] XRay Report Signed Patient: KARINA DE OLIVEIRA KMR#: [id number] : 1965Acct:[id number] Age/Sex: 57 / FADM Date: 10/16/23 Loc: EC Attending Dr: Sussy Jefferson D.P.M. Ordering Physician: Sussy Jefferson D.P.M. Date of Service: 10/16/23 Procedure(s): XR foot LT min 3V Accession Number(s): [id number] cc: Shaikh Erica Connelly; Sussy Jefferson D.P.M. [facility] [place] [address] Patient Name: KARINA DE OLIVEIRA MRN: [id number] date: 1965 Sex: F Assigned Patient Location: Current Patient Location: Accession/Order Number: [id number] Exam Date: 10/16/2023 11:20 Report Date: 10/17/2023 06:58 At the request of: SUSSY JEFFERSON Procedure: XR foot LT min 3V PROCEDURE: XR foot LT min 3V HISTORY: LEFT FOOT PAIN COMPARISON: XR foot left 09/03/2023 FINDINGS: BONES:Prior fracture of second metatarsal diaphysis with prominent callus formation seen on today's study. Slight lateral apex angulation,unchanged. Prior mechanical fusion of the first tarsal-metatarsal joint via dorsalplate and screws. Chronic degenerative changes at the tarsal-metatarsal joints. SOFT TISSUES:Prominent dorsal soft tissue swelling. EFFUSION:None visible. OTHER: Negative. XR/XR foot LT min 3V IMPRESSION: 1. Stable alignment with changes of ongoing bone healing involving thesecond metatarsal fracture. 2. Stable surgical changes without evidence of hardware failure. Electronically authenticated by: NAVID CORTES Date: 10/17/2023 06:58 Dictated By: Navid Cortes M.D. Signed By:10/17/23 0701 DD/ 0658 TD/TT: Medical Billing And Coding Specialist: us Generic External Data Provider [facility] Final Result documented in this encounter Visit Diagnoses Not on filedocumented in this encounter Care Teams Manager Aerospace Relationship Specialty Start Date End Date Jose Chandler MD [address] [place] [address] PCP - General Family Medicine 09/24/23 11/25/23 Unallocated, Noms ProviderMD [address] [place], [place] [id number] PCP - General Family Medicine 11/26/23 12/11/23 Jose Chandler MD [address] [place] [phone] PCP - General Family Medicine 12/12/23 Ijeoma Drake NP [address] [place] [address] Nurse Practitioner Family Medicine 09/24/23 Za Wilkerson NP [address] [place] [address] Nurse Practitioner Neurology 04/21/24 Madhuri Banda DO [address] [place] [address] Referring Physician Neurology 04/21/24 documented as of this encounter
--- OUTSIDE RECORDS SUMMARY | 2024-09-20 21:57 | XMS_ITS | Encounter Summary ---
Author Organization [facility] Address [address] [place] [place] [address] Care Team Providers Care Asphalt Coater Name Role Phone Shaikh BUNNY Connelly Primary Care Provider [phone] Jose Chandler MD Primary Care Provider [phone] Ijeoma Drake MED AIDE Unavailable [phone] Unallocated, Tiumr Hernandez MD Primary Care Provi shayna Jose Chandler MD Primary Care Provider [phone] Za Wilkerson MED AIDE Unavailable [phone] Madhuri Banda DO Unavailable [phone] Encounter Details Date Type Department Care Team (Late st Contact Info) Description 08/20/2023 Orders Only [facility] [address] [place] [phone] Danny Christiansen MD [address] [place] [address] Social History Tobacco Use Types Packs/Day Years Used Date Smoking Tobacco: Former Cigarettes Passive Smoke Exposure: Past Smokeless Tobacco: Never Alcohol Use Standard Drinks/Week Comments Never 0 (1 standard drink = 0.6 oz pur e alcohol) PHQ-2 Answer Date Recorded Patient Health Questionnaire-2 Score 0 08/22/2023 Comments Unknown Sex and Gender Information Value [...] pleasure in doing things Not at all 08/22/2023 11:15 AM EDT Stiven Omalley MA Feeling down, depressed, or hopeless Not at all 08/22/2023 11:15 AM EDT Stiven Omalley MA Patient Health Questionnaire -2 Score 0 08/22/2023 11:15 AM EDT Stiven Omalley MA documented as of this encounter Plan of Treatment Upcoming Encounters Date Type Department Care Team (Late st Contact Info) Description 09/30/2024 2:40 PM EDT Office Visit [facility] [address] [place] [address] Kasi Bennett MD [address] [place] [address] 11/23/2024 1:00 PM EDT Office Visit [facility] [address] [place] [address] Ameena Vera NP [address] [place] [address] 03/30/2025 11:15 AM EST Office Visit [facility] [address] [place] [address] Elida Monroy MD [address] [place] [address] documented as of this encounter Procedures Procedure Name Priority Date/Time Associated Diagnosis Comments XR LUMBAR SPINE 2 OR 3V Routine 08/17/2023 9:20 AM EDT documented in this encounter Results * XR LUMBAR SPINE 2 OR 3V (08/17/2023 9:20 AM EDT) Anatomical Region Laterality Modality Radiographic Eliana ging Danny Christiansen MD IMG XR PROCEDURES Final Resul t documented in this encounter Visit Diagnoses Not on filedocumented in this encounter Care Teams Asphalt Coater Relationship Specialty Start Date End Date Shaikh Connelly MD [address] [place] [address] PCP - General Internal Medicine 05/02/23 09/23/23 Jose Chandler MD [address] [place] [address] PCP - General Family Medicine 09/24/23 11/25/23 Unallocated, Timur Hernandez MD [address] [place] [address] PCP - General Family Medicine 11/26/23 12/11/23 Jose Chandler MD [address] [place] [address] PCP - General Family Medicine 12/12/23 Ijeoma Drake NP [address] [place] [address] Nurse Practitioner Family Medicine 09/24/23 Za Wilkerson NP [address] [place] [address] Nurse Practitioner Neurology 04/21/24 Madhuri Banda DO [address] [place] [address] Referring Physician Neurology 04/21/24 documented as of this encounter
--- OUTSIDE RECORDS SUMMARY | 2024-09-20 21:57 | XMS_ITS | Encounter Summary ---
Author Organization [facility] Address [address] [place] [address] Care Team Providers Care Ore Crusher Name Role Phone Shaikh BUNNY Connelly Primary Care Provider [phone] Jose Chandler MD Primary Care Provider [phone] Ijeoma Drake HOME HEALTH CLINICAL SUPERVISOR Unavailable [phone] Unallocated, Timur Hernandez MD Primary Care Provi shayna Jose Chandler MD Primary Care Provider [phone] Za Wilkerson HOME HEALTH CLINICAL SUPERVISOR Unavailable [phone] Madhuri Banda DO Unavailable [phone] Encounter Details Date Type Department Care Team (Late st Contact Info) Description 09/13/2023 Clinisync Result Encounter [facility] External Department Unsolicited [...] [facility] [address] [place] [address] Kasi Bennett MD [address] [place] [address] 11/23/2024 1:00 PM EDT Office Visit [facility] [address] [place] [address] Ameena Vera NP [address] [place] [address] 03/30/2025 11:15 AM EST Office Visit [facility] [address] [place] [address] Elida Monroy MD [address] [place] [address] documented as of this encounter Procedures Procedure Name Priority Date/Time Associated Diagnosis Comments CT FOOT LT WO CON 09/13/2023 5:0 2 AM EDT documented in this encounter Results * CT FOOT LT WO CON (09/13/2023 5:02 AM EDT) Anatomical Region Laterality Modality Other 09/13/2023 5:02 AM EDT Narrative 09/13/2023 5:05 AM EDT The [address] [address] [address] Scan Report Signed Patient: KARINA DE OLIVEIRA MR#: [id number] : 1965 Acct:[id number] Age/Sex: 57 / F ADM Date: 09/12/23 Loc: CT Attending Dr: Sussy Jefferson D.P.M. Ordering Physician: Sussy Jefferson D.P.M. Date of Service: 09/12/23 Procedure(s): CT foot LT wo con Accession Number(s): [id number] cc: Shaikh Erica Connelly The [address] [address] Patient Name: KARINA DE OLIVEIRA MRN: [id number] date: 1965 Sex: F Assigned Patient Location: CT Current Patient Location: Accession/Order Number: [id number] Exam Date: 09/12/2023 12:57 Report Date: 09/13/2023 05:02 At the request of: SUSSY JEFFERSON Procedure: CT foot LT wo con EXAMINATION: CT foot LT wo con HISTORY: Lisfranc fracture COMPARISON: XR foot left 09/03/2023, CT foot left 06/08/2023 TECHNIQUE: Multi-planar CT images were created without and/or with IV contrast according to examination type. Dose reduction techniques were achieved by using automated exposure control and/or adjustment of mA and/or kV according to patient size and/or use of iterative reconstruction technique. FINDINGS: BONES: Mechanical fusion of the first tarsal-metatarsal joint via dorsal plate and screws; no appreciable hardware fracture or loosening. Suspect ongoing bone healing of multiple fracture fragments of the medial, and possibly the middle, cuneiform. Stable alignment and ongoing healing fractures involving base of fourth and 5th metatarsals. Callus formation along margins of mid diaphyseal fracture of second metatarsal, but concern for movement and nonhealing. SOFT TISSUES: Soft tissue swelling/edema of the midfoot and forefoot. EFFUSION: None visible. OTHER: Negative. CT/CT foot LT wo con IMPRESSION: 1. Stable surgical changes without evidence of hardware failure. 2. Suspect ongoing bone healing at all fracture sites. There is concern for possible nonunion/movement of the second metatarsal mid diaphyseal fracture. Electronically authenticated by: NAVID CORTES Date: 09/13/2023 05:02 Dictated By: Navid Cortes M.D. Signed By: 09/13/23 0505 DD/ 0502 TD/TT: Direct Sales Consultant: Procedure Note Radiology, Radiologist, MD - 09/13/2023 [place] [address] CT Scan Report Signed Patient: KARINA DE OLIVEIRA KMR#: [id number] : 1965Acct:[id number] Age/Sex: 57 / FADM Date: 09/12/23 Loc: CT Attending Dr: Sussy Jefferson D.P.M. Ordering Physician: Sussy Jefferson D.P.M. Date of Service: 09/12/23 Procedure(s): CT foot LT wo con Accession Number(s): [id number] cc: Shaikh Erica Connelly [place] [address] Patient Name: KARINA DE OLIVEIRA MRN: [facility]:[id number] date: 1965 Sex: F Assigned Patient Location: CT Current Patient Location: Accession/Order Number: [id number] Exam Date: 09/12/2023 12:57 Report Date: 09/13/2023 05:02 At the request of: SUSSY JEFFERSON Procedure: CT foot LT wo con EXAMINATION: CT foot LT wo con HISTORY: Lisfranc fracture COMPARISON: XR foot left 09/03/2023, CT foot left 06/08/2023 TECHNIQUE: Multi-planar CT images were created without and/or with IVcontrast according to examination type. Dose reduction techniques were achieved by using automated exposure control and/or adjustment of mA and/or kV according to patient size and/or use of iterative reconstruction technique. FINDINGS: BONES: Mechanical fusion of the first tarsal-metatarsal joint via dorsalplate and screws; no appreciable hardware fracture or loosening. Suspect ongoing bone healing of multiple fracture fragments of the medial, and possibly themiddle, cuneiform. Stable alignment and ongoing healing fractures involving baseof fourth and 5th metatarsals. Callus formation along margins of middiaphyseal fracture of second metatarsal, but concern for movement and nonhealing. SOFT TISSUES: Soft tissue swelling/edema of the midfoot and forefoot. EFFUSION: None visible. OTHER: Negative. CT/CT foot LT wo con IMPRESSION: 1. Stable surgical changes without evidence of hardware failure. 2. Suspect ongoing bone healing at all fracture sites. There is concernfor possible nonunion/movement of the second metatarsal mid diaphysealfracture. Electronically authenticated by: NAVID CORTES Date: 09/13/2023 05:02 Dictated By: Navid Cortes M.D. Signed By:09/13/23 0509 DD/ 0502 TD/TT: Direct Sales Consultant: us Generic External Data Provider [facility] Final Result documented in this encounter Visit Diagnoses Not on filedocumented in this encounter Care Teams Ore Crusher Relationship Specialty Start Date End Date Shaikh Connelly MD [address] [place] [address] PCP - General Internal Medicine 05/02/23 09/23/23 Jose Chandler MD [address] [place] [address] PCP - General Family Medicine 09/24/23 11/25/23 Unallocated, Noms MD David [address] [place] [address] PCP - General Family Medicine 11/26/23 12/11/23 Jose Chandler MD [address] [place] [address] PCP - General Family Medicine 12/12/23 Ijeoma Drake NP [address] [place] [address] Nurse Practitioner Family Medicine 09/24/23 Za Wilkerson NP [address] [place] [address] Nurse Practitioner Neurology 04/21/24 Madhuri Banda DO [address] [place] [address] Referring Physician Neurology 04/21/24 documented as of this encounter
--- OUTSIDE RECORDS SUMMARY | 2024-09-20 21:57 | XMS_ITS | Encounter Summary ---
Author Organization [facility] Address [address] [place] [address] Care Team Providers Care Rag Willow Operator Name Role Phone Shaikh BUNNY Connelly Primary Care Provider [phone] Jose Chandler MD Primary Care Provider [phone] Ijeoma Drake PLASTIC SHEETING CUTTER Unavailable [phone] Unallocated, Timur Provider Primary Care Provi shayna Jose Chandler MD Primary Care Provider [phone] Za Wilkerson PLASTIC SHEETING CUTTER Unavailable [phone] Madhuri Banda DO Unavailable [phone] Encounter Details Date Type Department Care Team (Late st Contact Info) Description 07/03/2023 Clinisync Result Encounter [facility] External Department Unsolicited [...] Not at all 07/04/2023 1:18 PM EDT Omalley, Saebel, M A Feeling down, depressed, or hopeless Not at all 07/04/2023 1:18 PM EDT Stiven Omalley M A Patient Health Questionnaire -2 Score 0 07/04/2023 1:18 PM EDT Stiven Omalley M A documented as of this encounter Plan of Treatment Upcoming Encounters Date Type Department Care Team (Late st Contact Info) Description 09/30/2024 2:40 PM EDT Office Visit [facility] [address] [place] [address] Kasi Bennett MD [address] [place] [address] 11/23/2024 1:00 PM EDT Office Visit [facility] [address] [place] [address] Ameena Vera NP [address] [place] [address] 03/30/2025 11:15 AM EST Office Visit [facility] [address] [place] [address] Elida Monroy MD [address] [place] [address] documented as of this encounter Procedures Procedure Name Priority Date/Time Associated Diagnosis Comments XR FOOT LT MIN 3V 07/03/2023 2:0 4 PM EDT documented in this encounter Results * XR FOOT LT MIN 3V (07/03/2023 2:04 PM EDT) Anatomical Region Laterality Modality Other 07/03/2023 2:04 PM EDT Narrative 07/03/2023 2:07 PM EDT The [address] [address] XRay Report Signed Patient: KARINA DE OLIVEIRA MR#: [id number] : 1965 Acct:[id number] Age/Sex: 57 / F ADM Date: 07/03/23 Loc: EC Attending Dr: Sussy Jefferson D.P.M. Ordering Physician: Sussy Jefferson D.P.M. Date of Service: 07/03/23 Procedure(s): XR foot LT min 3V Accession Number(s): [id number] cc: Shaikh Erica Connelly; Sussy Jefferson D.P.M. The [place] [address] Patient Name: KARINA DE OLIVEIRA MRN: [id number] date: 1965 Sex: F Assigned Patient Location: Current Patient Location: Accession/Order Number: [id number] Exam Date: 07/03/2023 10:54 Report Date: 07/03/2023 14:04 At the request of: SUSSY JEFFERSON Procedure: XR foot LT min 3V PROCEDURE: XR foot LT min 3V COMPARISON: 06/08/2023, 06/10/2023 HISTORY: LEFT FOOT PAIN FINDINGS: BONES:Stable subacute fractures along the base of the metatarsals and involving the diaphysis of the second metatarsal. Suspected lateral subluxation of the metatarsals in relation to the tarsal bones could represent a Lisfranc dislocation. Interval fusion of the first tarsometatarsal joint with a plate and screws. No mechanical failure. SOFT TISSUES:Moderate soft tissue swelling EFFUSION:None visible. OTHER: Negative. XR/XR foot LT min 3V IMPRESSION: Subacute healing Lisfranc fracture dislocation Electronically authenticated by: RYAN GOLDMAN Date: 07/03/2023 14:04 Dictated By: Ryan Goldman M.D. Signed By: 07/03/23 1407 DD/ 1404 TD/TT: Servicing Manager: Procedure Note Radiology, Radiologist, MD - 07/03/2023 [place] [address] XRay Report Signed Patient: KARINA DE OLIVEIRA KMR#: [id number] : 1965Acct:[id number] Age/Sex: 57 / FADM Date: 07/03/23 Loc: EC Attending Dr: Sussy Jefferson D.P.M. Ordering Physician: Sussy Jefferson D.P.M. Date of Service: 07/03/23 Procedure(s): XR foot LT min 3V Accession Number(s): [id number] cc: Shaikh Erica Connelly; Sussy Jefferson D.P.M. [place] [id number] Patient Name: KARINA DE OLIVEIRA MRN: [id number] date: 1965 Sex: F Assigned Patient Location: Current Patient Location: Accession/Order Number: [id number] Exam Date: 07/03/2023 10:54 Report Date: 07/03/2023 14:04 At the request of: SUSSY JEFFERSON Procedure: XR foot LT min 3V PROCEDURE: XR foot LT min 3V COMPARISON: 06/08/2023, 06/10/2023 HISTORY: LEFT FOOT PAIN FINDINGS: BONES:Stable subacute fractures along the base of the metatarsals and involving the diaphysis of the second metatarsal. Suspected lateral subluxation ofthe metatarsals in relation to the tarsal bones could represent a Lisfranc dislocation. Interval fusion of the first tarsometatarsal joint with aplate and screws. No mechanical failure. SOFT TISSUES:Moderate soft tissue swelling EFFUSION:None visible. OTHER: Negative. XR/XR foot LT min 3V IMPRESSION: Subacute healing Lisfranc fracture dislocation Electronically authenticated by: RYAN GOLDMAN Date: 07/03/2023 14:04 Dictated By: Ryan Goldman M.D. Signed By:07/03/23 1407 DD/ 1404 TD/TT: Servicing Manager: Generic External Data Provider [facility] Final Result documented in this encounter Visit Diagnoses Not on filedocumented in this encounter Care Teams Rag Willow Operator Relationship Specialty Start Date End Date Shaikh Connelly MD [address] [place] [address] PCP - General Internal Medicine 05/02/23 09/23/23 Jose Chandler MD [address] [place] [address] PCP - General Family Medicine 09/24/23 11/25/23 Unallocated, Timur Hernandez MD [address] [place], [place] [address] PCP - General Family Medicine 11/26/23 12/11/23 Jose Chandler MD [address] [place] [address] PCP - General Family Medicine 12/12/23 Ijeoma Drake NP [address] [place] [address] Nurse Practitioner Family Medicine 09/24/23 Za Wilkerson NP [address] [place] [address] Nurse Practitioner Neurology 04/21/24 Madhuri Banda DO [address] [place] [address] Referring Physician Neurology 04/21/24 documented as of this encounter
--- OUTSIDE RECORDS SUMMARY | 2024-09-20 21:57 | XMS_ITS | Encounter Summary ---
Author Organization [facility] Address [address] [place] [address] Care Team Providers Care Formulator Compounder Name Role Phone Shaikh BUNNY Connelly Primary Care Provider [phone] Jose Chandler MD Primary Care Provider [phone] Ijeoma Drake VERIFICATION CLERK Unavailable [phone] Unallocated, Timur Hernandez MD Primary Care Provi shayna Jose Chandler MD Primary Care Provider [phone] Za Wilkerson VERIFICATION CLERK Unavailable [phone] Madhuri Banda DO Unavailable [phone] Encounter Details Date Type Department Care Team (Late st Contact Info) Description 07/24/2023 Clinisync Result Encounter [facility] External Department Unsolicited [...] [facility] [address] [place] [id number] Kasi Bennett MD [address] [place] [address] 11/23/2024 1:00 PM EDT Office Visit [facility] [address] [place] [address] Ameena Vera, RONALDO [address] [place] [address] 03/30/2025 11:15 AM EST Office Visit [facility] [address] [place] [address] Elida Monroy MD [address] [place] [address] documented as of this encounter Procedures Procedure Name Priority Date/Time Associated Diagnosis Comments XR FOOT LT MIN 3V 07/24/2023 3:5 1 PM EDT documented in this encounter Results * XR FOOT LT MIN 3V (07/24/2023 3:51 PM EDT) Anatomical Region Laterality Modality Other 07/24/2023 3:51 PM EDT Narrative 07/24/2023 3:53 PM EDT The [address] [address] XRay Report Signed Patient: KARINA DE OLIVEIRA MR#: [id number] : 1965 Acct:[id number] Age/Sex: 57 / F ADM Date: 07/24/23 Loc: EC Attending Dr: Sussy Jefferson D.P.M. Ordering Physician: Sussy Jefferson D.P.M. Date of Service: 07/24/23 Procedure(s): XR foot LT min 3V Accession Number(s): [id number] cc: Shaikh Erica Connelly; Sussy Jefferson D.P.M. [place] [address] Patient Name: KARINA DE OLIVEIRA MRN: [id number] date: 1965 Sex: F Assigned Patient Location: Current Patient Location: Accession/Order Number: [id number] Exam Date: 07/24/2023 13:37 Report Date: 07/24/2023 15:51 At the request of: SUSSY JEFFERSON Procedure: XR foot LT min 3V PROCEDURE: XR foot LT min 3V COMPARISON: 07/03/2023 HISTORY: LEFT FOOT PAIN FINDINGS: BONES:Stable fusion of the medial midfoot forefoot with a plate and multiple screws. No mechanical failure. Stable oblique fracture through the diaphysis of the second metatarsal and transverse intertubercular fracture base of the fifth metatarsal with no significant interval bony bridging. Possible proximal metatarsal fractures with lateral subluxation, Lisfranc type, stable. SOFT TISSUES:Negative. No visible soft tissue swelling. EFFUSION:None visible. OTHER: Negative. XR/XR foot LT min 3V IMPRESSION: Stable postsurgical and degenerative changes Stable fractures with no significant bony bridging Electronically authenticated by: RYAN GOLDMAN Date: 07/24/2023 15:51 Dictated By: Ryan Goldman M.D. Signed By: 07/24/23 1553 DD/ 1551 TD/TT: Tobacco Stripping Machine Operator: Procedure Note Radiology, Radiologist, MD - 07/24/2023 [place] [address] XRay Report Signed Patient: KARINA DE OLIVEIRA KMR#: [id number] : 1965Acct:[id number] Age/Sex: 57 / FADM Date: 07/24/23 Loc: EC Attending Dr: Sussy Jefferson D.P.M. Ordering Physician: Sussy Jefferson D.P.M. Date of Service: 07/24/23 Procedure(s): XR foot LT min 3V Accession Number(s): [id number] cc: Shaikh Erica Connelly; Sussy Jefferson D.P.M. The [place] [address] Patient Name: KARINA DE OLIVEIRA MRN: [id number] date: 1965 Sex: F Assigned Patient Location: Current Patient Location: Accession/Order Number: [id number] Exam Date: 07/24/2023 13:37 Report Date: 07/24/2023 15:51 At the request of: SUSSY JEFFERSON Procedure: XR foot LT min 3V PROCEDURE: XR foot LT min 3V COMPARISON: 07/03/2023 HISTORY: LEFT FOOT PAIN FINDINGS: BONES:Stable fusion of the medial midfoot forefoot with a plate andmultiple screws. No mechanical failure. Stable oblique fracture through thediaphysis of the second metatarsal and transverse intertubercular fracture base of the fifth metatarsal with no significant interval bony bridging. Possible proximal metatarsal fractures with lateral subluxation, Lisfranc type, stable. SOFT TISSUES:Negative. No visible soft tissue swelling. EFFUSION:None visible. OTHER: Negative. XR/XR foot LT min 3V IMPRESSION: Stable postsurgical and degenerative changes Stable fractures with no significant bony bridging Electronically authenticated by: RYAN GOLDMAN Date: 07/24/2023 15:51 Dictated By: Ryan Goldman M.D. Signed By:07/24/23 1553 DD/ 1551 TD/TT: Tobacco Stripping Machine Operator: Generic External Data Provider [facility] Final Result documented in this encounter Visit Diagnoses Not on filedocumented in this encounter Care Teams Formulator Compounder Relationship Specialty Start Date End Date Shaikh Connelly MD [address] [place] [address] PCP - General Internal Medicine 05/02/23 09/23/23 Jose Chandler MD [address] [place] [address] PCP - General Family Medicine 09/24/23 11/25/23 Unallocated, Noms MD [address] [place] [address] PCP - General Family Medicine 11/26/23 12/11/23 Jose Chandler MD [address] [place] [address] PCP - General Family Medicine 12/12/23 Ijeoma Drake NP [address] [place] [address] Nurse Practitioner Family Medicine 09/24/23 Za Wilkerson NP [address] [place] [address] Nurse Practitioner Neurology 04/21/24 Madhuri Banda DO [address] [place] [address] Referring Physician Neurology 04/21/24 documented as of this encounter
--- OUTSIDE RECORDS SUMMARY | 2024-09-20 21:57 | XMS_ITS | Encounter Summary ---
Author Organization [facility] Address [address] [place] [address] Care Team Providers Care Cemetery Vault Installer Name Role Phone Shaikh BUNNY Connelly Primary Care Provider [phone] Jose Chandler MD Primary Care Provider [phone] Ijeoma Drake ENGINE LATHE SET UP OPERATOR TOOL Unavailable [phone] Unallocated, Timur Hernandez MD Primary Care Provi shayna Jose Chandler MD Primary Care Provider [phone] Za Wilkerson ENGINE LATHE SET UP OPERATOR TOOL Unavailable [phone] Madhuri Banda DO Unavailable [phone] Encounter Details Date Type Department Care [...] [facility] [address] [place] [address] Kasi Bennett MD [address], [address] [place] [address] 11/23/2024 1:00 PM EDT Office Visit [facility] [address] [place] [address] Ameena Vera NP [address] [place] [address] 03/30/2025 11:15 AM EST Office Visit [facility] [address] [place] [address] Elida Monroy MD [address] [place] [address] documented as of this encounter Procedures Procedure Name Priority Date/Time Associated Diagnosis Comments XR TIBIA FIBULA LT 2V 08/14/2023 3:27 PM EDT documented in this encounter Results * XR TIBIA FIBULA LT 2V (08/14/2023 3:27 PM EDT) Anatomical Region Laterality Modality Other 08/14/2023 3:27 PM EDT Narrative 08/14/2023 3:29 PM EDT The [address] [address] XRay Report Signed Patient: KARINA DE OLIVEIRA MR#: [id number] : 1965 Acct:[id number] Age/Sex: 57 / F ADM Date: 08/13/23 Loc: EC Attending Dr: Sussy Jefferson D.P.M. Ordering Physician: Sussy Jefferson D.P.M. Date of Service: 08/13/23 Procedure(s): XR tibia fibula LT 2V Accession Number(s): [id number] cc: Shaikh Erica Connelly; Sussy Jefferson D.P.M. [facility] [place] [id number] Patient Name: KARINA DE OLIVEIRA MRN: [id number] date: 1965 Sex: F Assigned Patient Location: Current Patient Location: Accession/Order Number: [id number] Exam Date: 08/13/2023 14:05 Report Date: 08/14/2023 15:27 At the request of: SUSSY JEFFERSON Procedure: XR tibia fibula LT 2V PROCEDURE: XR tibia fibula LT 2V HISTORY: LEFT LOWER LEG PAIN COMPARISON: XR tibia fibula left 06/08/2023 FINDINGS: BONES:Prior fracture of fibula at the proximal diametaphyseal junction. Minimal displacement with mild early callus formation. SOFT TISSUES:No visible soft tissue swelling. EFFUSION:None visible. OTHER: Negative. XR/XR tibia fibula LT 2V IMPRESSION: 1. Subacute proximal fibular fracture with stable alignment and slightly increased density compatible with changes of early bone healing. Electronically authenticated by: NAVID CORTES Date: 08/14/2023 15:27 Dictated By: Navid Cortes M.D. Signed By: 08/14/23 1529 DD/ 1527 TD/TT: Service Associate: Procedure Note Radiology, Radiologist, MD - 08/14/2023 [place] [address] XRay Report Signed Patient: KARINA DE OLIVEIRA KMR#: [id number] : 1965Acct:[id number] Age/Sex: 57 / FADM Date: 08/13/23 Loc: Attending Dr: Sussy Jefferson D.P.M. Ordering Physician: Sussy Jefferson D.P.M. Date of Service: 08/13/23 Procedure(s): XR tibia fibula LT 2V Accession Number(s): [id number] cc: Shaikh Erica Connelly; Sussy Jefferson D.P.M. The [place] [address] Patient Name: KARINA DE OLIVEIRA MRN: [id number] date: 1965 Sex: F Assigned Patient Location: Current Patient Location: Accession/Order Number: [id number] Exam Date: 08/13/2023 14:05 Report Date: 08/14/2023 15:27 At the request of: SUSSY JEFFERSON Procedure: XR tibia fibula LT 2V PROCEDURE: XR tibia fibula LT 2V HISTORY: LEFT LOWER LEG PAIN COMPARISON: XR tibia fibula left 06/08/2023 FINDINGS: BONES:Prior fracture of fibula at the proximal diametaphyseal junction. Minimal displacement with mild early callus formation. SOFT TISSUES:No visible soft tissue swelling. EFFUSION:None visible. OTHER: Negative. XR/XR tibia fibula LT 2V IMPRESSION: 1. Subacute proximal fibular fracture with stable alignment and slightly increased density compatible with changes of early bone healing. Electronically authenticated by: NAVID CORTES Date: 08/14/2023 15:27 Dictated By: Navid Cortes M.D. Signed By:08/14/23 1529 DD/ 1527 TD/TT: Service Associate: Generic External Data Provider [facility] Final Result documented in this encounter Visit Diagnoses Not on filedocumented in this encounter Care Teams Cemetery Vault Installer Relationship Specialty Start Date End Date Shaikh Connelly MD [address] [place] [address] PCP - General Internal Medicine 05/02/23 09/23/23 Jose Chandler MD [address] [place] [address] PCP - General Family Medicine 09/24/23 11/25/23 Unallocated, Timur Hernandez MD [address] [place] [address] PCP - General Family Medicine 11/26/23 12/11/23 Jose Chandler MD [address] [place] [address] PCP - General Family Medicine 12/12/23 Ijeoma Drake NP [address] [place] [address] Nurse Practitioner Family Medicine 09/24/23 Za Wilkerson NP [address] [place] [address] Nurse Practitioner Neurology 04/21/24 Madhuri Banda DO [address] [place] [address] Referring Physician Neurology 04/21/24 documented as of this encounter
--- OUTSIDE RECORDS SUMMARY | 2024-09-20 21:57 | XMS_ITS | Encounter Summary ---
Author Organization [facility] Address [address] [place] [address] Care Team Providers Care Electric Locomotive Crane Operator Name Role Phone Shaikh BUNNY Connelly Primary Care Provider [phone] Shaikh BUNNY Connelly Primary Care Provider [phone] Jose Chandler MD Primary Care Provider [phone] Ijeoma Drake MICROBIOLOGY TEACHER Unavailable [phone] Unallocated, Noms Provider Primary Care Provi shayna Jose Chandler MD Primary Care Provider [phone] Za Wilkerson MICROBIOLOGY TEACHER Unavailable [phone] Madhuri Banda DO Unavailable [phone] Encounter Details Date Type Department Care Team (Late st Contact Info) Description 03/28/2023 Orders Only [facility] [address] [place] [address] Shaikh Connelly MD [address] [place] [address] Social History Tobacco Use Types Packs/Day Years [...] Office Visit [facility] [place] [facility] [address] [place] [address] Kasi Bennett MD [address] [place] [address] 11/23/2024 1:00 PM EDT Office Visit [facility] [address] [place] [address] Ameena Vera NP [address] [place] [address] 03/30/2025 11:15 AM EST Office Visit [facility] [address] [place] [address] Elida Monroy MD [address] [place], [place] [address] documented as of this encounter Procedures Procedure Name Priority Date/Time Associated Diagnosis Comments LAB COLOGUARD COLON CANCER SCREEN Routine 03/28/2023 7:20 PM EST XR DEXA AXIAL SKELETON* Routine 03/28/2023 7:06 PM EST documented in this encounter Results * Cologuard?? colon cancer screening (03/28/2023 7:20 PM EST) Stool us Shaikh Maricel [facility] ORDER RUTH ANN Final Result * XR DEXA AXIAL SKELETON* (03/28/2023 7:06 PM EST) Anatomical Region Laterality Modality Radiographic Eliana ging us Shaikh Maricel [facility] XR PROCEDURES Final Result documented in this encounter Visit Diagnoses Not on filedocumented in this encounter Care Teams Electric Locomotive Crane Operator Relationship Specialty Start Date End Date Fakevind, Barrios, MD PCP - General Internal Medicine 11/11/22 05/01/23 Shaikh Connelly MD [address] [place] [address] PCP - General Internal Medicine 05/02/23 09/23/23 Jose Chandler MD [address] [place] [address] PCP - General Family Medicine 09/24/23 11/25/23 Unallocated, Timur Hernandez MD [address] [place] [address] PCP - General Family Medicine 11/26/23 12/11/23 Jose Chandler MD [address] [place] [address] PCP - General Family Medicine 12/12/23 Ijeoma Drake NP [address] [place] [place] [address] Nurse Practitioner Family Medicine 09/24/23 Za Wilkerson NP [address] [place] [address] Nurse Practitioner Neurology 04/21/24 Madhuri Banda DO [address] [place] [address] Referring Physician Neurology 04/21/24 documented as of this encounter
--- OUTSIDE RECORDS SUMMARY | 2024-09-20 21:57 | XMS_ITS | Clinical Summary ---
Author Organization [facility] Healthcare Address [address] [place] [address] Care Team Providers Care Replanting Machine Crewman Name Role Phone Ijeoma Drake ALMOND PAN FINISHER Unavailable [phone] Jose Chandler MD Primary Care Provider [phone] Za Wilkerson ALMOND PAN FINISHER Unavailable [phone] Madhuri Banda DO Unavailable [phone] Allergies No known active allergies Medications rizatriptan (Maxalt) 10 MG tabletIndications :Migraine with aura and without status migrainosus, not intractable Take 1 tablet (10 mg) by mouth 1 (one) time if needed for migraine May repeat in 2 hours if unresolved. Do not exceed 30 mg in 24 hours. 9 tablet 12/17/19 24 Active rosuvastatin (Crestor) 20 MG tabletIndications :Other hyperlipidemia Take 1 tablet (20 mg) by mouth Daily 90 tablet 1 03/03/19 25 Active Continuous Glucose Hyster Driver (Dexcom G7 Hyster Driver) deviceIndications :Type 2 diabetes mellitus with diabetic microalbuminuria, without long-term current use of insulin (HCC) 1 each continuously 1 each 03/03/19 25 Active Semaglutide, 2 MG/DOSE, (Ozempic, 2 MG/DOSE,) 8 MG/3ML solution pen-injectorIndic ations:Type 2 diabetes mellitus with diabetic microalbuminuria, without long-term current use of insulin (HCC) Inject 2 mg under the skin every 7 (seven) days 9 mL 1 05/20/19 25 Active pregabalin (Lyrica) 75 MG capsuleIndication s:Diabetic polyneuropathy associated with type 2 diabetes mellitus (HCC) Take 1 capsule (75 mg) by mouth in the morning and 1 capsule (75 mg) in the evening and 1 capsule (75 mg) before bedtime. 90 capsule 2 06/24/19 25 Active diclofenac (Voltaren) 75 MG EC tabletIndications :Lumbar back pain Take 1 tablet (75 mg) by mouth in the morning and 1 tablet (75 mg) before bedtime. Do not crush, chew, or split. 180 tablet 1 07/28/19 25 025 Active baclofen (Lioresal) 20 MG tabletIndications :Lumbar back pain Take 1 tablet (20 mg) by mouth 3 (three) times a day as needed for muscle spasms 90 tablet 1 08/05/19 25 025 Active colchicine 0.6 MG tabletIndications :Chronic gout of multiple sites, unspecified cause TAKE 2 TABLETS BY MOUTH AT ONSET OF ACUTE GOUT, MAY TAKE 1 TABLET IN 1 HOURS. NO MORE THAN 3 TABLETS DAILY 15 tablet 1 08/06/19 25 Active oxyCODONE-acetami nophen (Percocet) 5-325 MG tablet Take 1 tablet by mouth Daily as needed 07/02/19 25 Active allopurinol (Zyloprim) 300 MG tabletIndications :Chronic gout of multiple sites, unspecified cause Take 1 tablet (300 mg) by mouth Daily 90 tablet 1 08/21/19 25 025 Active famotidine (Pepcid) 20 MG tabletIndications :Gastroesophageal reflux disease without esophagitis Take 1 tablet (20 mg) by mouth in the morning and 1 tablet (20 mg) before bedtime. 180 tablet 1 08/21/19 25 025 Active furosemide (Lasix) 20 MG tabletIndications :Bilateral lower extremity edema Take 1 tablet (20 mg) by mouth if needed (swelling in legs) Take 20 mg by mouth if needed 90 tablet 08/21/19 25 025 Active divalproex (Depakote) 500 MG EC tabletIndications :Migraine with aura and without status migrainosus, not intractable Take 1 tablet (500 mg) by mouth in the morning and 1 tablet (500 mg) before bedtime. Do not crush, chew, or split. 180 tablet 1 09/01/19 25 026 Active metFORMIN (Glucophage) 500 MG tabletIndications :Type 2 diabetes mellitus with diabetic microalbuminuria, without long-term current use of insulin ([facility]) Take 1 tablet (500 mg) by mouth in the morning and 1 tablet (500 mg) in the evening. Take with meals. 180 tablet 1 09/01/19 25 025 Active alendronate (Fosamax) 70 MG tabletIndications :Osteoporosis, unspecified osteoporosis type, unspecified pathological fracture presence Take 1 tablet (70 mg) by mouth every 7 (seven) days Take in the morning with a full glass of water, on an empty stomach, and do not take anything else by mouth or lie down for the next 30 min. 12 tablet 1 09/01/19 25 026 Active divalproex (Depakote) 500 MG EC tabletIndications :Migraine with aura and without status migrainosus, not intractable Take 1 tablet (500 mg) by mouth in the morning and 1 tablet (500 mg) before bedtime. Do not crush, chew, or split.. 180 tablet 1 03/03/19 25 025 Discontinu ed(Reorder ) alendronate (Fosamax) 70 MG tabletIndications :Osteoporosis, unspecified osteoporosis type, unspecified pathological fracture presence Take 1 tablet (70 mg) by mouth every 7 (seven) days Take in the morning with a full glass of water, on an empty stomach, and do not take anything else by mouth or lie down for the next 30 min. 12 tablet 1 03/09/19 25 025 Discontinu ed(Reorder ) metFORMIN (Glucophage) 500 MG tabletIndications :Type 2 diabetes mellitus with diabetic microalbuminuria, without long-term current use of insulin ([facility]) Take 1 tablet (500 mg) by mouth in the morning and 1 tablet (500 mg) in the evening. Take with meals. 180 tablet 1 07/23/19 25 025 Discontinu ed(Reorder ) Continuous Glucose Sensor (Dexcom G7 Sensor) miscIndications:T ype 2 diabetes mellitus with diabetic microalbuminuria, without long-term current use of insulin ([facility]) 1 each continuously 3 each 08/06/19 25 025 Active Problems Problem Noted Date Diagnosed Date Low serum parathyroid hormone (PTH) 06/03/2024 Body mass index (BMI) 39.0-39.9, adult Cigarette nicotine dependence without complicati on 05/19/2024 Assessment & Plan (08/20/2024 6:27 AM EDT): The patient has been advised of the risks of continued smoking: stroke, NC, all forms of cancer, lung disease, and . Options for quitting smoking include: cold turkey, hypnosis, acupuncture, nicotine replacement meds (gum, lozenges, and patches), Buproprion, and Varenicline. At this time pt is encouraged to evaluate their goals for wanting to quit smoking, and reach out to provider when ready to start this process Assessment & Plan (05/19/2024 6:53 AM EDT): The patient has been advised of the risks of continued smoking: stroke, NC, all forms of cancer, lung disease, and . Options for quitting smoking include: cold turkey, hypnosis, acupuncture, nicotine replacement meds (gum, lozenges, and patches), Buproprion, and Varenicline. At this time pt is encouraged to evaluate their goals for wanting to quit smoking, and reach out to provider when ready to start this process Hypercalcemia 05/19/2024 Chronic gout of multiple sites 05/19/2024 Assessment & Plan (05/19/2024 11:44 AM EDT): Allopurinol daily Colchicine prn Check labs yearly and prn sxs or dose change Acute pain of right knee 05/19/2024 Assessment & Plan (05/19/2024 12:58 PM EDT): Check xray Refer to ortho JANETT (obstructive sleep apnea) 03/30/2024 Assessment & Plan (05/19/2024 11:42 AM EDT): You have a diagnosis of obstructive sleep [...] Franco Doctor that manages your JANETT: Dr Banda Assessment & Plan (03/30/2024 10:04 AM EST): Saw Neurology- was diagnosed with severe JANETT. Has been wearing CPAP religiously. Feels more well rested when wearing. Continue current regimen as directed by neurology. Urinary frequency 12/30/2023 Mixed urge and stress incontinence 10/03/2023 Assessment & Plan (12/30/2023 1:19 PM EST): Referral sent to Urology for urinary dysfunction. Pt has not gone to see them yet. Assessment & Plan (10/03/2023 10:31 AM EDT): Referral sent to urology. Snoring 10/03/2023 Assessment & Plan (12/30/2023 1:18 PM EST): Referral sent to Neurology for suspected first JANETT. First appointment tomorrow. Assessment & Plan (10/03/2023 10:57 AM EDT): Screening for JANETT- Referral sent to [facility] [place] Lumbar back pain 08/22/2023 Assessment & Plan (10/03/2023 10:33 AM EDT): Lyrica. Percocet PRN Assessment & Plan (08/22/2023 11:34 AM EDT): Acute worsening of chronic low back pain. XR - no acute finding, old compression fx and multilevel DJD changes. Baclofen as needed as its helping. Appt with pain clinic tomorrow. Bilateral lower extremity edema 08/05/2023 Assessment & Plan (08/20/2024 11:22 AM EDT): Refilled lasix She could try 1/2 pill every other day for swelling Heart normal, chest clear Assessment & Plan (05/19/2024 11:43 AM EDT): Current meds: lasix prn Elevate legs when able, limit sodium, compression stockings if tolerated Assessment & Plan (08/05/2023 11:35 AM EDT): B/l LE edema, worse at the end of the day. Likely venous insufficiency. Use lasix as needed. Back spasm 07/04/2023 Assessment & Plan (07/04/2023 2:04 PM EDT): Patient reports back spasms. On robaxin at night. Helps but does not last long enough. Increase to TID dosing. Patient asked to inform Pain Clinic Metatarsal fracture 07/04/2023 Assessment & Plan (07/04/2023 1:54 PM EDT): S/p surgery. Following Podiatry. Closed fracture of proximal end of left fibula with routine healing 07/04/2023 Assessment & Plan (07/04/2023 1:54 PM EDT): Conservative measures. Following Podiatry. Melanocytic nevi of trunk 05/02/2023 Migraine with aura and witho ut status migrainosus, not intractable 05/02/2023 Assessment & Plan (05/19/2024 6:51 AM EDT): Current meds: maxalt, depakote Assessment & Plan (07/04/2023 2:05 PM EDT): Well controlled. On Dapakote for migraine px. Uses relpax as needed for abortive therapy. Assessment & Plan (05/02/2023 2:22 PM EDT): Well controlled. On Dapakote for migraine px. Uses relpax as needed for abortive therapy. Other hyperlipidemia 05/02/2023 Assessment & Plan (05/19/2024 6:52 AM EDT): On statin therapy Check labs yearly and prn dose changes Assessment & Plan (03/30/2024 9:58 AM EST): Crestor 20mg Denies myalgias Continue current regimen. Assessment & Plan (12/30/2023 1:18 PM EST): Crestor 20mg Denies myalgias Continue current regimen. Assessment & Plan (10/03/2023 10:34 AM EDT): Crestor 20mg; Lipid panel looks good Denies myalgias; Continue Crsetor Assessment & Plan (08/05/2023 11:35 AM EDT): C/w crestor.Lipid panel 04/06 - at goal. Assessment & Plan (07/04/2023 2:05 PM EDT): C/w crestor. Check lipid panel Essential hypertension 05/02/2023 Assessment & Plan (08/20/2024 11:23 AM EDT): No current meds, insurance suggests MAUREEN/ARB, no d/t heart DASH diet Limit caffeine Contact office if chest pain, pressure, dizziness, shortness of breath, swelling legs Current meds: none Assessment & Plan (05/19/2024 6:56 AM EDT): No current meds DASH diet Limit caffeine Contact office if chest pain, pressure, dizziness, shortness of breath, swelling legs Assessment & Plan (03/30/2024 9:58 AM EST): BP consistently under goal in office. Not on any medication regimen. Continue to monitor closely. Assessment & Plan (08/05/2023 11:33 AM EDT): Too tightly controlled. Usually less than 110/70, previously on hydrochlorothiazide that was discontinued. Asymptomatic. At goal w/o hydrochlorothiazide. Monitor and follow up as clinically indicated. Assessment & Plan (07/04/2023 1:53 PM EDT): Too tightly controlled. Usually less than 110/70 Asymptomatic. Discontinue hydrochlorothiazide Monitor BP without it. Maintain BP log. Monitor and follow up as clinically indicated. Assessment & Plan (05/02/2023 2:24 PM EDT): Well controlled on hydrochlorothiazide C/w same. Might need to discontinue if she continues to lose weight Morbid (severe) obesity due to excess calories ( E66.01) 05/02/2023 Assessment & Plan (08/20/2024 6:27 AM EDT): Discussed with patient their BMI (actual, verses recommended). We have also discussed lifestyle modifications: attempts to perform physical activity as chronic conditions allow, also to monitor dietary intake: increasing protein/fruits/veggies and lowering carb intake (unless contraindicated). Limit sodas, juices, and sugary drinks. Is taking ozempic for DM Assessment & Plan (05/19/2024 6:50 AM EDT): Discussed with patient their BMI (actual, verses recommended). We have also discussed lifestyle modifications: attempts to perform physical activity as chronic conditions allow, also to monitor dietary intake: increasing protein/fruits/veggies and lowering carb intake (unless contraindicated). Limit sodas, juices, and sugary drinks. Is taking ozempic for DM Assessment & Plan (10/03/2023 10:35 AM EDT): Discussed with patient their BMI (actual, verses recommended). We have also discussed lifestyle modifications: attempts to perform physical activity as chronic conditions allow, also to monitor dietary intake: increasing protein/fruits/veggies and lowering carb intake (unless contraindicated). Limit sodas, juices, and sugary drinks. Also discussed oral medications that can be utilized for weight loss, as well as surgical options for weight loss. Assessment & Plan (05/02/2023 2:25 PM EDT): On Ozempic. Pt trying to lose weight with dietary modifications. Lost about 10 lbs in 2-3 months. Body mass index [BMI] 40.0-44.9, adult (Z68.41) 05/02/2023 Assessment & Plan (05/02/2023 2:25 PM EDT): On Ozempic. Pt trying to lose weight with dietary modifications. Lost about 10 lbs in 2-3 months. Encounter for screening mammogram for breast can cer 01/29/2023 Assessment & Plan (01/29/2023 12:36 PM EST): Last mammogram over 2 years ago -Ordered mammogram for the patient. Encounter for screening for malignant neoplasm o f colon 01/29/2023 Assessment & Plan (01/29/2023 12:37 PM EST): Never had Colon Cancer Screening - average risk, normal stool and no GI symptoms. Ordered Cologuard. Basal cell carcinoma (BCC) of skin of nose 01/29 Type 2 diabetes mellitus wit h diabetic microalbuminuria, without long-term current use of insulin 01/29/2023 Assessment & Plan (08/20/2024 10:51 AM EDT): Check blood sugars daily, notify if <70 [...] sugars. Current meds: metformin, ozempic, statin A1c: 6.4% 08/20/24 6.7% 05/19/24 Assessment & Plan (05/19/2024 12:58 PM EDT): Check blood sugars daily, notify if <70 [...] Current meds: metformin, ozempic, statin A1c: 6.7% Assessment & Plan (03/30/2024 10:11 AM EST): Currently taking Metformin Bid and Ozempic 1mg. [...] 01/2024- missed appointment, but will be scheduling. Assessment & Plan (12/30/2023 1:17 PM EST): Currently taking Metformin Bid and Ozempic Most [...] eye Exam; 01/2023; Is going in 01/2024 Assessment & Plan (10/03/2023 10:34 AM EDT): Metformin Bid and Ozempic Most recent labs: [...] normal Sharp/dull discrimination normal Filament test present Assessment & Plan (08/05/2023 11:34 AM EDT): Most recent labs: hemoglobin A1C 6.3 08/04 Average FSBS range from BGs consistently in an acceptable range No episode of hypoglycemia No medication adverse effects reported by the patient. C/w metformin and ozempic. Decrease metformin to 500 mg q12. Plan is to discontinue metformin if possible. Assessment & Plan (07/04/2023 2:05 PM EDT): Most recent labs: hemoglobin A1C 6.8 Average FSBS range from BGs consistently in an acceptable range No episode of hypoglycemia No medication adverse effects reported by the patient. Labs due for T2 DM C/w metformin and ozempic. Assessment & Plan (05/02/2023 2:22 PM EDT): Most recent labs: hemoglobin A1C 6.8 Average FSBS range from BGs consistently in an acceptable range No episode of hypoglycemia No medication adverse effects reported by the patient. Doing well with Ozempic. Lost 10 lbs over past 3 months. C/w same. Labs ordered - patient to get labs before next appointment. Assessment & Plan (01/29/2023 12:42 PM EST): Most recent labs: hemoglobin A1C 6.8 Average FSBS range from BGs consistently in an acceptable range No episode of hypoglycemia No medication adverse [...] hypoglycemia/hyperglycemia on home glucose monitoring noted. Last appointment, she was started on Ozempic to help with weight loss too. She is tolerating 0.5 mg dose w/o any problems. Will increase to 1 mg qweekly. Ordered urine albumin/creatinine. Resolved Problems Problem Noted Date Diagnosed Date Resolved Date Other acute sinusitis 06/11/20242024 Elevated blood uric acid level 05/19/2024 08/20/2024 Assessment & Plan (05/19/2024 6:58 AM EDT): Currently taking allopurinol Hospital discharge follow-up 07/04/2023 08/20/2024 Assessment & Plan (08/22/2023 11:33 AM EDT): Patient here for follow up after recent hospital admission at [facility] Reviewed hospital records. Answered patient's questions and concerns related to hospital stay/medication changes/results of testing. Back pain is better. C/w baclofen as needed. Has an apt with pain clinic Assessment & Plan (07/04/2023 2:15 PM EDT): Patient here for follow up after recent hospital admission at [facility] Reviewed hospital records. Answered patient's questions and concerns related to hospital stay/medication changes/results of testing. Upper respiratory infection with cough and congestion 01/29/2023 05/19/2024 Assessment & Plan (03/03/2024 11:35 AM EST): Productive cough- yellow phlegm/Sinus congestion/Runny nose/Headaches/Malaise X1 week. Will treat for upper respiratory infection with steroids, Augmentin, Flonase, and tessalon Perles. Advised pt to follow up if symptoms worsen or do not improve within 1 week.. Assessment & Plan (01/29/2023 12:40 PM EST): Patient reports cough, wheezing, chest congestion x 2 weeks. No fever, denies earache but has mild SOB on exertion. Denies earache. Exam revealed mild exp wheezing. Purulent fluid behind TM b/l. Also hyperemic oropharyngeal mucosa. Will order Augmentin for bilateral otitis media, add ventolin to help with wheezing, benzonatate as needed for cough. I would have prescribed Prednisone too but she just finished oral prednisone for her carpal tunnel syndrom/wrist pain and with hx of T2DM - I will stay away from it pinky when she has no resp distress and reports her wheezing is improved from before. She has no known lung disease but she is a former smoker, morbidly obese and could have an underlying obs lung disease. We will address testing for it later on once she is healthy and not acutely sick. Encounters Date Type Department Care Team Description 08/20/2024 10:30 AM EDT Office Visit [facility] [address] [place] [address] Ameena Vera NP Type 2 diabetes mellitus with diabetic microalbuminuria, without long-term current use of insulin ([facility]) (Primary Dx); Essential hypertension; Morbid (severe) obesity due to excess calories (E66.01); Cigarette nicotine dependence without complication; Chronic gout of multiple sites, unspecified cause; Gastroesophageal reflux disease without esophagitis; Bilateral lower extremity edema 08/20/2024 Refill [facility] [address] [place] [address] Ameena Vera NP Bilateral lower extremity edema; Migraine with aura and without status migrainosus, not intractable ; Type 2 diabetes mellitus with diabetic microalbuminuria, without long-term current use of insulin ([facility]); Osteoporosis, unspecified osteoporosis type, unspecified pathological fracture presence 08/17/2024 Travel 08/05/2024 Refill [facility] [address] [place] [address] Ameena Vera NP Type 2 diabetes mellitus with diabetic microalbuminuria, without long-term current use of insulin ([facility]) 08/05/2024 Refill [facility] [address] [place] [address] Ameena Vera NP Chronic gout of multiple sites, unspecified cause (Primary Dx) 08/05/2024 Telephone [facility] [address] [place] [address] Ameena Vera NP 08/02/2024 Refill [facility] [address] [place] [address] Jose Chandler MD Lumbar back pain 07/29/2024 2:00 PM EDT Office Visit [facility] [address] [place] [address] Kasi Bennett MD Hypercalcemia (Primary Dx); Low serum parathyroid hormone (PTH); Vitamin D deficiency 07/29/2024 Bamboo flowsheet [facility] [address] [place] [address] Kasi Bennett MD 07/29/2024 Travel 07/26/2024 Refill [facility] [address] [place] [address] Ameena Vera NP Lumbar back pain 07/22/2024 Refill [facility] [address] [place] [phone] Jose Chandler MD Type 2 diabetes mellitus with diabetic microalbuminuria, without long-term current use of insulin ([facility]) 07/14/2024 Orders Only [facility] [address] [place] [phone] Ameena Vera NP Low serum parathyroid hormone (PTH) (Primary Dx) 07/09/2024 Clinisync Result Encounter [facility] External Department Unsolicited Ameena Vera NP 06/23/2024 Refill [facility] [address] [place] [address] Ameena Vera NP Diabetic polyneuropathy associated with type 2 diabetes mellitus (HCC) 06/23/2024 Telephone [facility] [address] [place] [phone] Ameena Vera NP from Last 3 Months Family History Medical History Relation Name Comments Cancer Maternal Grandfather Diabetes Maternal Grandfather Heart disease Maternal Grandfather Hypertension Maternal Grandfather Arthritis Mother Neyda Cancer Mother Neyda Diabetes Mother Neyda Heart disease Mother Neyda Hyperlipidemia Mother Neyda Hypertension Mother Neyda Restless legs syndrome Mother Neyda Melanoma Neg Hx Relation Name Status Comments Brother Alive Father Alive Maternal Grandfather Mother Neyda Social History Tobacco Use Types Packs/Day Years [...] week 10/02/2023 How often do you attend [facility] or [facility] services? Patient declined 10/02/2023 Do you belong to any clubs o r organizations such as anabaptism groups, unions, fraternal or athletic groups, or [...] Recorded Patient Health Questionnaire-2 Score 0 10/03/2023 [facility] - Occupational Stress [...] any time in the past 12 m [facility], were you homeless or living in a correction (including now)? Patient declined 10/02/2023 Comments Unknown Sex and Gender Information Value Date Recorded Sex Assigned at Not on file Legal Sex Female 6:48 PM EDT Gender Identity Not on file Sexual Orientation Not on file Last Filed Vital Signs Vital Sign Reading Time Taken Comments Blood Pressure 90/58 08/20/2024 11:10 AM EDT Pulse 101 08/20/2024 10:37 AM EDT Temperature 36.9 C (98.5 F) 08/20/2024 10:37 AM EDT Respiratory Rate 18 08/20/2024 10:37 AM EDT Oxygen Saturation 93% 08/20/2024 10:37 AM EDT Inhaled Oxygen Concentration - - Weight 97 kg (213 lb 12.8 oz) 08/20/2024 10:37 A M EDT Height 156.2 cm (5' 1.5 ) 07/29/2024 2:08 PM EDT Body Mass Index 39.74 07/29/2024 2:08 PM EDT Plan of Treatment Upcoming Encounters Date Type Department Care Team (Late st Contact Info) Description 09/30/2024 2:40 PM EDT Office Visit [facility] [address] [place] [id number] Kasi Bennett MD [address] [place] [address] 11/23/2024 1:00 PM EDT Office Visit [facility] [address] [place] [address] Ameena Vera, ALMOND [employer] FINISHER [address] [place] [address] 03/30/2025 11:15 AM EST Office Visit [facility] [address] [place] [address] Elida Monroy MD [address] [place] [address] Health Maintenance Due Date Last Done Comments CT Colonography 1963 Colonoscopy 1963 FIT 1963 FOBT 1965 Sigmoidoscopy 1963 HPV/Cotest 10/21/1993 Diabetes: Retinopathy Screening 02/12/2024 Cervical Cancer Screening 08/30/2024 Pap Smear 08/30/2024 08/30/2021, 08/30/2021 Influenza Vaccine (#1) 2024 Diabetes: Hemoglobin A1C 02/20/2025 025, 08/20/2024, 05/19/2024, Additional history exists Mammogram 03/18/2025 03/18/2024, 08/2023, 03/20/2023, Additional history exists Diabetes: Urine Protein Screening 05/21/2025 025 Colorectal Cancer Screening 03/28/2026 FIT-DNA 03/28/2026 03/28/2023, 03/08/2023 Procedures Procedure Name Priority Date/Time Associated Diagnosis Comments POCT GLYCOSYLATED HEMOGLOBIN (HGB A1C) Routine 08/20/2024 10:56 AM EDT Type 2 diabetes mellitus with diabetic microalbuminuria, without long-term current use of insulin (HCC) [facility] PTH, INTRAOPERATIVE Routine 07/09/2024 10:02 AM EDT TBH VITAMIN D 25 [place] Routine 07/09/2024 1 0:02 AM EDT ALL BASIC METABOLIC PANEL Routine 07/09/2024 10:02 AM EDT MM TOMOSYNTHESIS SCREENING BI 03/18/2024 2:54 PM EST LAB COLOGUARD COLON CANCER SCREEN Routine 03/28/2023 7:20 PM EST from Last 3 Months or Most Recently Relevant to Health Maintenance Results * (ABNORMAL) POCT glycosylated hemoglobin (Hb A1C) docked device (08/20/2024 10:56 AM EDT) Hemoglobin A1C 6.4 Blood Venous blood specimen / Unknown 08/20/2024 10:56 AM EDT Ameena Vera NP POINT OF CARE TEST ENTER/EDIT O RDERABLES Final Result * TBH VITAMIN D 25 OH (07/09/2024 10:02 AM EDT) VITAMIN D 88.6 ng/mL TB Comment: <20 ng/mL Vit D deficient 20-<30 ng/mL Vit D insufficient 30-100 ng/mL Vit D sufficient >100 ng/mL Potential Toxicity 07/09/2024 10:0 2 AM EDT 07/09/2024 10:14 AM EDT Narrative CLINISYNC - 07/09/2024 12:06 PM EDT Ameena Vera NP CLINISYNC Final Result Performing Organization Address City/[facility] Co de Phone Number CLINISYNC TBH * (ABNORMAL) HMHP PTH, INTRAOPERATIVE (07/09/2024 10:02 AM EDT) PTH, INTACT 14(A) 15 - 65 pg/mL TBH Comment: Performed at: - [facility] [id number] Professional Athlete: Berto Gay PhD, Phone: [phone] 07/09/2024 10:0 2 AM EDT 07/09/2024 10:14 AM EDT Narrative CLINISYNC - 07/10/2024 2:09 PM EDT Ameena Vera NP CLINISYNC Final Result Performing Organization Address [facility] Co de Phone Number CLINISYNC TBH * (ABNORMAL) ALL BASIC METABOLIC PANEL (07/09/2024 10:02 AM EDT) SODIUM 143 136 - 145 mmol/L TBH POTASSIUM 4.6 3.5 - 5.1 mmol/L TBH CHLORIDE 103 98 - 107 mmol/L TBH CARBON DIOXIDE 33.0(H) 21.0 - 32.0 mmol/L TBH ANION GAP 11.6 TBH GLUCOSE 107(H) 74 - 106 mg/dL TBH BLOOD UREA NITROGEN 20.0(H) 7.0 - 18.0 mg/dL TBH CREATININE 0.86 0.55 - 1.02 mg/dL TBH TBH EGFR-AF SURINAMESE >60 >=60 mL/min/1.7 3m 2 TBH TBH EGFR-NON AF SURINAMESE >60 >=60 mL/min/1.7 3m 2 TBH BUN CREATININE RATIO 23.3 TBH CALCIUM 9.3 8.5 - 10.1 mg/dL TBH 07/09/2024 10:0 2 AM EDT 07/09/2024 10:14 AM EDT Narrative CLINISYNC - 07/09/2024 11:09 AM EDT us Ameena Davisdeidreshahram RONALDO CLINISYNC Final Result [facility] * MM TOMOSYNTHESIS SCREENING BI (03/18/2024 2:54 PM EST) Anatomical Region Laterality Modality Other 03/18/2024 2:54 PM EST Narrative 03/18/2024 2:54 [place] [address] Mammography Report Signed Patient: KARINA DE OLIVEIRA MR#: [id number] : 1965 Acct:[id number] Age/Sex: 58 / F ADM Date: 03/18/24 Loc: MAMMO Attending Dr: RADHA TRIVEDI Ordering Physician: RADHA TRIVEDI Results: Date of Service: 03/18/24 Follow Up: Procedure(s): MM tomosynthesis screening BI Accession Number(s): [id number] cc: LOCO DRAKE SUSAN Patient Name: KARINA DE OLIVEIRA MR#: [id number] : 1965 Exam Date: 03/18/2024 Ordering Doctor: DR RADHA TRIVEDI [facility] RADIOLOGY REPORT PROCEDURE: MM TOMOSYNTHESIS [...] PALPABLE LUMP SHOULD BE BIOPSIED. Dictated by: Navid Cortes M.D. on 03/18/2024 at 14:50 Approved by: Navid Cortes M.D. on 03/18/2024 at 14:53 Dictated By: Navid Cortes M.D. Signed By: 03/18/24 1454 DD/ 1454 TD/TT: Hotel Recreational Facilities Manager: Procedure Note Radiology, Radiologist, MD - 03/18/2024 [place] [address] Mammography Report Signed Patient: KARINA DE OLIVEIRA KMR#: [id number] : 1965Acct:[id number] Age/Sex: 58 / FADM Date: 03/18/24 Loc: MAMMO Attending Dr: RADHA TRIVEDI Ordering Physician: RADHA TRIVEDIResults: Date of Service: 03/18/24Follow Up: Procedure(s): MM tomosynthesis screening BI Accession Number(s): [id number] cc: LOCO DRAKE SUSAN Patient Name: KARINA DE OLIVEIRA MR#: [id number] : 1965 Exam Date: 03/18/2024 Ordering Doctor: DR RADHA TRIVEDI [facility] RADIOLOGY REPORT PROCEDURE: MM TOMOSYNTHESIS SCREENING BI COMPARISON: MM TOMOSYNTHESIS SCREENING BI, 03/20/2023. MG MAMM [id number] SALINA CAD, 01/31/2021. MG MAMM SCREEN SALINA W CAD, 02/02/2020. MG MAMM BILSCRN W CAD DIG, 01/22/2013. INDICATIONS: Screening for malignant neoplasm Calculator Name NCI Breast Cancer Risk Assessment Tool 5 Year Breast Cancer Risk 1.30% Lifetime Breast Cancer Risk 6.60% Personal Breast Cancer No Personal Ovarian Cancer No Treatments None Family Cancers Grandfather-maternal with prostate cancer at age 70;Mother with skin cancer at age 71. LOCATION: The [facility] BREAST COMPOSITION: There are scattered areas of fibroglandulardensity. FINDINGS: DIAGNOSTIC CATEGORY 2--BENIGN FINDING: RIGHT BREAST: No significant suspicious finding. Scatteredbenign-appearing calcifications are present. No significant change has occurred. LEFT BREAST: No significant suspicious finding. Scatteredbenign-appearing calcifications are present. No significant change has occurred. RECOMMENDATIONS: ROUTINE MAMMOGRAM AND CLINICAL EVALUATION IN 12 MONTHS. PLEASE NOTE: A NORMAL MAMMOGRAM DOES NOT EXCLUDE THE POSSIBILITY OFBREAST CANCER. A CLINICALLY SUSPICIOUS PALPABLE LUMP SHOULD BE BIOPSIED. Dictated by: Navid Cortes M.D. on 03/18/2024 at 14:50 Approved by: Navid Cortes M.D. on 03/18/2024 at 14:53 Dictated By: Navid Cortes M.D. Signed By:03/18/24 1454 DD/ 1454 TD/TT: Hotel Recreational Facilities Manager: us Generic External Data Provider CLINISYNC IMAGING Final Result * Cologuard?? colon cancer screening (03/28/2023 7:20 PM EST) Stool us Shaikh Maricel [facility] ORDER RUTH ANN Final Result from Last 3 Months or Most Recently Relevant to Health Maintenance [facility] Care Teams Replanting Machine Crewman Relationship Specialty Start Date End Date Jose Chandler MD [address] [place] [address] PCP - General Family Medicine 12/12/23 Ijeoma Drake NP Nurse Practitioner Family Medicine 09/24/23 Za Wilkerson NP [address] [place] [address] Nurse Practitioner Neurology 04/21/24 Madhuri Banda DO [address] [place] [address] Referring Physician Neurology 04/21/24
--- OUTSIDE RECORDS SUMMARY | 2024-09-20 21:57 | XMS_ITS | Encounter Summary ---
Author Organization [facility] Address [address] [place] [address] Care Team Providers Care Commercial Pest Control Technician Name Role Phone Shaikh BUNNY Connelly Primary Care Provider [phone] Jose Chandler MD Primary Care Provider [phone] Ijeoma Drake EXECUTIVE PRODUCER PROMOS Unavailable [phone] Unallocated, Timur Hernandez MD Primary Care Provi shayna Jose Chandler MD Primary Care Provider [phone] Za Wilkerson EXECUTIVE PRODUCER PROMOS Unavailable [phone] Madhuri Banda DO Unavailable [phone] Encounter Details Date Type Department Care Team (Late st Contact Info) Description 09/04/2023 Clinisync Result Encounter [facility] External Department Unsolicited [...] [facility] [address] [place] [id number] Kasi Bennett MD [address] [place] [address] 11/23/2024 1:00 PM EDT Office Visit [facility] [address] [place] [address] Ameena Vera NP [address] [place] [address] 03/30/2025 11:15 AM EST Office Visit [facility] [address] [place] [address] Elida Monroy MD [address] [place] [address] documented as of this encounter Procedures Procedure Name Priority Date/Time Associated Diagnosis Comments XR FOOT LT MIN 3V 09/04/2023 7:4 9 AM EDT documented in this encounter Results * XR FOOT LT MIN 3V (09/04/2023 7:49 AM EDT) Anatomical Region Laterality Modality Other 09/04/2023 7:49 AM EDT Narrative 09/04/2023 7:52 AM EDT The [address] [address] XRay Report Signed Patient: KARINA DE OLIVEIRA MR#: [id number] : 1965 Acct:[id number] Age/Sex: 57 / F ADM Date: 09/03/23 Loc: EC Attending Dr: Sussy Jefferson D.P.M. Ordering Physician: Sussy Jefferson D.P.M. Date of Service: 09/03/23 Procedure(s): XR foot LT min 3V Accession Number(s): [id number] cc: Shaikh Erica Connelly; Sussy Jefferson D.P.M. The [address] [place] [id number] Patient Name: KARINA DE OLIVEIRA MRN: [id number] date: 1965 Sex: F Assigned Patient Location: Current Patient Location: Accession/Order Number: [id number] Exam Date: 09/03/2023 15:15 Report Date: 09/04/2023 07:49 At the request of: SUSSY JEFFERSON Procedure: XR foot LT min 3V PROCEDURE: XR foot LT min 3V COMPARISON: 08/13/2023 HISTORY: LEFT FOOT PAIN FINDINGS: BONES:Stable medial midfoot forefoot fusion with a plate and screws, stable. Mid diaphyseal fracture of the second metatarsal with apex lateral angulation, interval callus formation consistent with healing. Transverse fracture base of the fifth metatarsal with partial bony bridging. There is lateral subluxation of the second metatarsal base in relation to the intermediate cuneiform likely representing a Lisfranc type fracture dislocation. Extensive degenerative changes with marginal osteophyte formation. Plantar enthesopathic spurring of the calcaneus SOFT TISSUES:Negative. No visible soft tissue swelling. EFFUSION:None visible. OTHER: Negative. XR/XR foot LT min 3V IMPRESSION: Stable postsurgical and degenerative changes with no mechanical fusion Stable fractures of the second and fifth metatarsals Electronically authenticated by: RYAN GOLDMAN Date: 09/04/2023 07:49 Dictated By: Ryan Goldman M.D. Signed By: 09/04/23 0752 DD/ 0749 TD/TT: Hearing Officer: Procedure Note Radiology, Radiologist, MD - 09/04/2023 The [place] [id number] XRay Report Signed Patient: KARINA DE OLIVEIRA KMR#: [id number] : 1965Acct:[id number] Age/Sex: 57 / FADM Date: 09/03/23 Loc: EC Attending Dr: Susys Jefferson D.P.M. Ordering Physician: Sussy Jefferson D.P.M. Date of Service: 09/03/23 Procedure(s): XR foot LT min 3V Accession Number(s): [id number] cc: Shaikh Erica Connelly; Sussy Jefferson D.P.M. The [place] [id number] Patient Name: KARINA DE OLIVEIRA MRN: [id number] date: 1965 Sex: F Assigned Patient Location: Current Patient Location: Accession/Order Number: [id number] Exam Date: 09/03/2023 15:15 Report Date: 09/04/2023 07:49 At the request of: SUSSY JEFFERSON Procedure: XR foot LT min 3V PROCEDURE: XR foot LT min 3V COMPARISON: 08/13/2023 HISTORY: LEFT FOOT PAIN FINDINGS: BONES:Stable medial midfoot forefoot fusion with a plate and screws,stable. Mid diaphyseal fracture of the second metatarsal with apex lateralangulation, interval callus formation consistent with healing. Transverse fracturebase of the fifth metatarsal with partial bony bridging. There is lateralsubluxation of the second metatarsal base in relation to the intermediate cuneiformlikely representing a Lisfranc type fracture dislocation. Extensive degenerative changes with marginal osteophyte formation. Plantar enthesopathic spurringof the calcaneus SOFT TISSUES:Negative. No visible soft tissue swelling. EFFUSION:None visible. OTHER: Negative. XR/XR foot LT min 3V IMPRESSION: Stable postsurgical and degenerative changes with no mechanical fusion Stable fractures of the second and fifth metatarsals Electronically authenticated by: RYAN GOLDMAN Date: 09/04/2023 07:49 Dictated By: Ryan Goldman M.D. Signed By:09/04/23 0752 DD/ 0749 TD/TT: Hearing Officer: us Generic External Data Provider [facility] IMAGING Final Result documented in this encounter Visit Diagnoses Not on filedocumented in this encounter Care Teams Commercial Pest Control Technician Relationship Specialty Start Date End Date Shaikh Connelly MD [address] [place] [address] PCP - General Internal Medicine 05/02/23 09/23/23 Jose Chandler MD [address] [place] [address] PCP - General Family Medicine 09/24/23 11/25/23 Unallocated, Timur Hernandez MD [address] [place] [address] PCP - General Family Medicine 11/26/23 12/11/23 Jose Chandler MD [address] [place] [address] PCP - General Family Medicine 12/12/23 Ijeoma Drake NP [address] [place] [address] Nurse Practitioner Family Medicine 09/24/23 Za Wilkerson NP [address] [place] [address] Nurse Practitioner Neurology 04/21/24 Madhuri Banda DO [address] [place] [address] Referring Physician Neurology 04/21/24 documented as of this encounter
--- OUTSIDE RECORDS SUMMARY | 2024-09-20 21:58 | XMS_ITS | Encounter Summary ---
Author Organization [facility] Address [address] [place] [address] [place] [address] Care Team Providers Care Oil Winterizer Name Role Phone Shaikh BUNNY Connelly Primary Care Provider [phone] Shaikh BUNNY Connelly Primary Care Provider [phone] Jose Chandler MD Primary Care Provider [phone] Ijeoma Drake LANDSCAPE ARCHITECTURE TEACHER Unavailable [phone] Unallocated, Noms Provider Primary Care Provi shayna Jose Chandler MD Primary Care Provider [phone] Za Wilkerson LANDSCAPE ARCHITECTURE TEACHER Unavailable [phone] Madhuri Banda DO Unavailable [phone] Encounter Details Date Type Department Care Team (Late st Contact Info) Description 03/18/2023 Orders Only [facility] [address] [place] [address] Shaikh Connelly MD [address] [place] [address] Social History Tobacco Use Types Packs/Day Years [...] [facility] [address] [place] [address] Kasi Bennett MD [address] [place] [address] 11/23/2024 1:00 PM EDT Office Visit [facility] [address] [place] [address] Ameena Vera NP [address] [place] [address] 03/30/2025 11:15 AM EST Office Visit [facility] [address] [place] [address] Elida Monroy MD [address] [place] [address] documented as of this encounter Procedures Procedure Name Priority Date/Time Associated Diagnosis Comments MISCELLANEOUS LAB TEST Routine 11/17/2022 3:09 PM EDT documented in this encounter Results * - Miscellaneous Test (11/17/2022 3:09 PM EDT) Shaikh Maricel [facility] BLOOD ORDERABLES Final Resu lt documented in this encounter Visit Diagnoses Not on filedocumented in this encounter Care Teams Oil Winterizer Relationship Specialty Start Date End Date Shaikh Connelly MD PCP - General Internal Medicine 11/11/22 05/01/23 Shaikh Connelly MD [address] [place] [address] PCP - General Internal Medicine 05/02/23 09/23/23 Jose Chandler MD [address] [place] [address] PCP - General Family Medicine 09/24/23 11/25/23 Unallocated, Timur Hernandez MD [address] [place] [address] PCP - General Family Medicine 11/26/23 12/11/23 Jose Chandler MD [address] [place] [address] PCP - General Family Medicine 12/12/23 Ijeoma Drake NP [address] [place] [address] Nurse Practitioner Family Medicine 09/24/23 Za Wilkerson NP [address] [place] [address] Nurse Practitioner Neurology 04/21/24 Madhuri Banda DO [address] [place] [address] Referring Physician Neurology 04/21/24 documented as of this encounter
--- OUTSIDE RECORDS SUMMARY | 2024-09-20 21:58 | XMS_ITS | Encounter Summary ---
Author Organization [facility] Address [address] [place] [address] Care Team Providers Care Flight Engineer Performance Qualified Name Role Phone Shaikh BUNNY Connelly Primary Care Provider [phone] Jose Chandler MD Primary Care Provider [phone] Ijeoma Drake COW RIDER Unavailable [phone] Unallocated, Timur Hernandez MD Primary Care Provi shayna Jose Chandler MD Primary Care Provider [phone] Za Wilkerson COW RIDER Unavailable [phone] Madhuri Banda DO Unavailable [phone] Encounter Details Date Type Department Care Team ([facility] st Contact Info) Description 06/10/2023 Orders Only [facility] [address] [facility] [address] [place] [address] Rivas Rendon MD [address] [facility] [place] [address] Social History Tobacco Use Types Packs/Day Years Used Date Smoking Tobacco: Former Cigarettes Passive Smoke Exposure: Past Smokeless Tobacco: Never Alcohol Use Standard Drinks/Week Comments Never 0 (1 standard drink = 0.6 oz pur e alcohol) PHQ-2 Answer Date Recorded Patient Health Questionnaire-2 Score 0 05/02/2023 Comments Unknown Sex and Gender Information Value [...] [facility] [address] [place] [address] Kasi Bennett MD [address] [place] [address] 11/23/2024 1:00 PM EDT Office Visit [facility] [address] [place] [address] Ameena Vera NP [address] [place] [address] 03/30/2025 11:15 AM EST Office Visit [facility] [address] [place] [address] Elida Monroy MD [address] [place] [address] documented as of this encounter Procedures Procedure Name Priority Date/Time Associated Diagnosis Comments XR TIBIA FIBULA 2 VIEWS LEFT Routine 06/10/2023 3:16 PM EDT XR FOOT 3+ VIEWS LEFT Routine 06/10/2023 3:01 PM EDT XR CHEST 1 VIEW Routine 06/08/2023 10:42 AM EDT documented in this encounter Results * XR tibia fibula 2 views left (06/10/2023 3:16 PM EDT) Anatomical Region Laterality Modality Lower Extremities, Lower Leg Left Rad iographic Imaging us Anahi [facility] IMG XR PROCEDURES Final Result * XR foot 3+ views left (06/10/2023 3:01 PM EDT) Anatomical Region Laterality Modality Lower Extremities, Foot Left Radiogra phic Imaging us Shaikh Maricel [facility] XR PROCEDURES Final Result * XR chest 1 view (06/08/2023 10:42 AM EDT) Anatomical Region Laterality Modality Chest Radiographic Eliana ging us Rivas Rendon MD IMG XR PROCEDURES Final Result documented in this encounter Visit Diagnoses Not on filedocumented in this encounter Care Teams Flight Engineer Performance Qualified Relationship Specialty Start Date End Date Shaikh Connelly MD [address] [place] [address] PCP - General Internal Medicine 05/02/23 09/23/23 Jose Chandler MD [address] [place] [address] PCP - General Family Medicine 09/24/23 11/25/23 Unallocated, Noms MD David [address] [place] [address] PCP - General Family Medicine 11/26/23 12/11/23 Jose Chandler MD [address] [place] [address] PCP - General Family Medicine 12/12/23 Ijeoma Drake NP [address] [place] [address] Nurse Practitioner Family Medicine 09/24/23 Za Wilkerson NP [address] [place] [address] Nurse Practitioner Neurology 04/21/24 Madhuri Banda DO [address] [place] [address] Referring Physician Neurology 04/21/24 documented as of this encounter
--- OUTSIDE RECORDS SUMMARY | 2024-09-20 21:58 | XMS_ITS | Encounter Summary ---
Author Organization [facility] Address [address] [place] [address] Care Team Providers Care Power Shovel Operator Helper Name Role Phone Shaikh BUNNY Connelly Primary Care Provider [phone] Jose Chandler MD Primary Care Provider [phone] Ijeoma Drake MVA STILL OPERATOR Unavailable [phone] Unallocated, Timur Hernandez MD Primary Care Provi shayna Jose Chandler MD Primary Care Provider [phone] Za Wilkerson MVA STILL OPERATOR Unavailable [phone] Madhuri Banda DO Unavailable [phone] Encounter Details Date Type Department Care Team (Late st Contact Info) Description 06/06/2023 Clinisync Result Encounter [facility] External Department Unsolicited [...] [facility] [address] [place] [address] Kasi Bennett MD [address] [place] [address] 11/23/2024 1:00 PM EDT Office Visit [facility] [address] [place] [address] Ameena Vera NP [address] [place] [address] 03/30/2025 11:15 AM EST Office Visit [facility] [place] [facility] [address] [place] [address] Elida Monroy MD [address] [place] [address] documented as of this encounter Procedures Procedure Name Priority Date/Time Associated Diagnosis Comments MR LUMBAR SPINE WO CON 06/06/2023 4:49 PM EDT documented in this encounter Results * MR LUMBAR SPINE WO CON (06/06/2023 4:49 PM EDT) Anatomical Region Laterality Modality Other 06/06/2023 4:49 PM EDT Narrative 06/06/2023 4:51 PM EDT [facility] [place] [id number] Magnetic Resonance Report Signed Patient: KARINA DE OLIVEIRA MR#: [id number] : 1965 Acct:[id number] Age/Sex: 57 / F ADM Date: 06/06/23 Loc: MRI Attending Dr: James Tijerina NP Ordering Physician: James Tijerina NP Date of Service: 06/06/23 Procedure(s): MR lumbar spine wo con Accession Number(s): [id number] cc: Shaikh Erica Connelly; James Tijerina NP The [address] [address] Patient Name: KARINA DE OLIVEIRA MRN: [facility]:[id number] date: 1965 Sex: F Assigned Patient Location: MRI Current Patient Location: MRI Accession/Order Number: [id number] Exam Date: 06/06/2023 12:30 Report Date: 06/06/2023 16:49 At the request of: JAMES TIJERINA Procedure: MR lumbar spine wo con MRI LUMBAR SPINE WITHOUT CONTRAST, 06/06/2023. HISTORY: Low back pain. Pain in legs. COMPARISON: None. TECHNIQUE: Multiplanar, multisequence MRI imaging of the lumbar spine without contrast. FINDINGS: Mild chronic compression fracture at L1. Grade 1 retrolisthesis at L1-L2 measures 3 mm. Grade 1 retrolisthesis at L2-L3 measures 3 mm. There is grade 1 anterolisthesis at L5-S1 measuring 8 mm. Signal in the bone marrow spaces is normal. No bone marrow edema. No suspicious osseous lesions. L5-S1, severe facet arthropathy. Grade 1 spondylolisthesis measures 8 mm. Moderate to severe degenerative disc disease. No spinal canal stenosis. Spondylolisthesis, facet hypertrophy, disc space narrowing and osteophytes result in severe left foraminal narrowing. Mild right foraminal narrowing. L4-L5, moderate to severe degenerative disc disease. No spinal canal stenosis. No significant foraminal narrowing. L3-L4, moderate degenerative disc disease. No spinal canal stenosis. Mild right foraminal narrowing. No foraminal narrowing on the left. L2-L3, severe degenerative disc disease. There is severe disc space narrowing and diffuse irregularity of the endplates. Reactive degenerative endplate signal changes are noted. Grade 1 retrolisthesis. There is moderate spinal canal stenosis. Mild foraminal narrowing bilaterally. L1-L2, severe degenerative disc disease. Grade 1 retrolisthesis. No spinal canal stenosis. No foraminal narrowing. No abnormal signal in the conus medullaris. No paraspinal mass. MR/MR lumbar spine wo con IMPRESSION: 1. Advanced degenerative disc disease at L2-L3 with severe loss of disc space height, diffuse irregularity of the endplates as well as reactive degenerative endplate signal changes. Grade 1 retrolisthesis. There is moderate spinal canal stenosis and mild bilateral foraminal narrowing. 2. Severe degenerative disc disease at L1-L2. There is grade 1 retrolisthesis at this level. No spinal stenosis or foraminal narrowing. 3. Severe facet arthropathy at L5-S1. There is grade 1 spondylolisthesis. No spinal canal stenosis. Severe left foraminal narrowing. Mild right foraminal narrowing. Electronically authenticated by: RUPERTO FRITZ Date: 06/06/2023 16:49 Dictated By: Ruperto Fritz M.D. Signed By: 06/06/231650 DD/ 48 TD/TT: Unemployment Specialist: Procedure Note Radiology, Radiologist, MD - 06/06/2023 [place] [address] Magnetic Resonance Report Signed Patient: KARINA DE OLIVEIRA KMR#: [id number] : 1965Acct:[id number] Age/Sex: 57 / FADM Date: 06/06/23 Loc: MRI Attending Dr: James Tijerina MVA STILL OPERATOR Ordering Physician: James Tijerina NP Date of Service: 06/06/23 Procedure(s): MR lumbar spine wo con Accession Number(s): [id number] cc: Shaikh Erica Connelly; James Tijerina NP [facility] [place] [id number] Patient Name: KARINA DE OLIVEIRA MRN: [id number] date: 1965 Sex: F Assigned Patient Location: MRI Current Patient Location: MRI Accession/Order Number: [id number] Exam Date: 06/06/2023 12:30 Report Date: 06/06/2023 16:49 At the request of: JAMES TIJERINA Procedure: MR lumbar spine wo con MRI LUMBAR SPINE WITHOUT CONTRAST, 06/06/2023. HISTORY: Low back pain. Pain in legs. COMPARISON: None. TECHNIQUE: Multiplanar, multisequence MRI imaging of the lumbar spinewithout contrast. FINDINGS: Mild chronic compression fracture at L1. Grade 1 retrolisthesisat L1-L2 measures 3 mm. Grade 1 retrolisthesis at L2-L3 measures 3 mm. Thereis grade 1 anterolisthesis at L5-S1 measuring 8 mm. Signal in the bone marrow spaces is normal. No bone marrow edema. No suspicious osseous lesions. L5-S1, severe facet arthropathy. Grade 1 spondylolisthesis measures 8 mm. Moderate to severe degenerative disc disease. No spinal canal stenosis. Spondylolisthesis, facet hypertrophy, disc space narrowing and osteophytes result in severe left foraminal narrowing. Mild right foraminal narrowing. L4-L5, moderate to severe degenerative disc disease. No spinal canalstenosis. No significant foraminal narrowing. L3-L4, moderate degenerative disc disease. No spinal canal stenosis. Mild right foraminal narrowing. No foraminal narrowing on the left. L2-L3, severe degenerative disc disease. There is severe disc spacenarrowing and diffuse irregularity of the endplates. Reactive degenerative endplate signal changes are noted. Grade 1 retrolisthesis. There is moderate spinal canal stenosis. Mild foraminal narrowing bilaterally. L1-L2, severe degenerative disc disease. Grade 1 retrolisthesis. No spinal canal stenosis. No foraminal narrowing. No abnormal signal in the conus medullaris. No paraspinal mass. MR/MR lumbar spine wo con IMPRESSION: 1. Advanced degenerative disc disease at L2-L3 with severe loss of discspace height, diffuse irregularity of the endplates as well as reactivedegenerative endplate signal changes. Grade 1 retrolisthesis. There is moderate spinal canal stenosis and mild bilateral foraminal narrowing. 2. Severe degenerative disc disease at L1-L2. There is grade 1retrolisthesis at this level. No spinal stenosis or foraminal narrowing. 3. Severe facet arthropathy at L5-S1. There is grade 1 spondylolisthesis.No spinal canal stenosis. Severe left foraminal narrowing. Mild rightforaminal narrowing. Electronically authenticated by: RUPERTO FRITZ Date: 06/06/2023 16:49 Dictated By: Ruperto Fritz M.D. Signed By:06/06/231650 DD/ 48 TD/TT: Unemployment Specialist: us Generic External Data Provider [facility] Final Result documented in this encounter Visit Diagnoses Not on filedocumented in this encounter Care Teams Power Shovel Operator Helper Relationship Specialty Start Date End Date Shaikh Connelly MD [address] [place] [address] PCP - General Internal Medicine 05/02/23 09/23/23 Jose Chandler MD [address] [place] [address] PCP - General Family Medicine 09/24/23 11/25/23 Unallocated, Timur Hernandez MD [address] [place] [address] PCP - General Family Medicine 11/26/23 12/11/23 Jose Chandler MD [address] [place] [address] PCP - General Family Medicine 12/12/23 Ijeoma Drake NP [address] [place] [address] Nurse Practitioner Family Medicine 09/24/23 Za Wilkerson NP [address] [place] [address] Nurse Practitioner Neurology 04/21/24 Madhuri Banda DO [address] [place] [address] Referring Physician Neurology 04/21/24 documented as of this encounter
--- OUTSIDE RECORDS SUMMARY | 2024-09-20 21:58 | XMS_ITS | Encounter Summary ---
Author Organization [facility] Address [address] [place] [address] Care Team Providers Care Licensed Social Worker Name Role Phone Shaikh BUNNY Connelly Primary Care Provider [phone] Shaikh BUNNY Connelly Primary Care Provider [phone] Jose Chandler MD Primary Care Provider [phone] Ijeoma Drake PST SUPERVISOR Unavailable [phone] Unallocated, Guillermos Provider Primary Care Provi shayna Jose Chandler MD Primary Care Provider [phone] Za Wilkerson PST SUPERVISOR Unavailable [phone] Madhuri Banda DO Unavailable [phone] Reason for Visit * Reason Comments Med Refill Encounter Details Date Type Department Care Team ([facility] st Contact Info) Description 03/05/2023 [facility] [address] [place] [address] Shaikh Connelly MD [address] [place] [address] Gout, unspecified cause, unspecified chronicity, unspecified site (Primary Dx) Social History Tobacco Use Types Packs/Day Years [...] on file documented as of this encounter Miscellaneous Notes * Telephone Encounter - Shaikh Maricel MD - 03/06/2023 11:26 AM EST Approving, but needs appt for additional refills. documented in this encounter Plan of Treatment Upcoming Encounters Date Type Department Care Team (Late st Contact Info) Description 09/30/2024 2:40 PM EDT Office Visit [facility] [address] [place] [address] Kasi Bennett MD [address] [place] [address] 11/23/2024 1:00 PM EDT Office Visit [facility] [address] [place] [address] Ameena Vera NP [address] [place] [address] 03/30/2025 11:15 AM EST Office Visit [facility] [address] [place] [address] Elida Monroy MD [address] [place] [address] documented as of this encounter Visit Diagnoses Diagnosis Gout, unspecified cause, unspecified chronicity, unspecified site- Primary documented in this encounter Care Teams Licensed Social Worker Relationship Specialty Start Date End Date Shaikh Connelly MD PCP - General Internal Medicine 11/11/22 05/01/23 Shaikh Connelly MD [address] [place] [address] PCP - General Internal Medicine 05/02/23 09/23/23 Jose Chandler MD [address] [place] [address] PCP - General Family Medicine 09/24/23 11/25/23 Unallocated, Timur Hernandez MD [address] [place] [address] PCP - General Family Medicine 11/26/23 12/11/23 Jose Chandler MD [address] [place] [address] PCP - General Family Medicine 12/12/23 Ijeoma Drake NP [address] [place] [address] Nurse Practitioner Family Medicine 09/24/23 Za Wilkerson NP [address] [place] [address] Nurse Practitioner Neurology 04/21/24 Madhuri Banda DO [address] [place] [address] Referring Physician Neurology 04/21/24 documented as of this encounter
--- OUTSIDE RECORDS SUMMARY | 2024-09-20 21:58 | XMS_ITS | Encounter Summary ---
Author Organization [facility] Address [address] [place] [place] [address] Care Team Providers Care Obstetric Anaesthetist Name Role Phone Shaikh BUNNY Connelly Primary Care Provider [phone] Jose Chandler MD Primary Care Provider [phone] Ijeoma Drake PADDLE DYEING MACHINE OPERATOR Unavailable [phone] Unallocated, Timur Provider Primary Care Provi shayna Jose Chandler MD Primary Care Provider [phone] Za Wilkerson PADDLE DYEING MACHINE OPERATOR Unavailable [phone] Madhuri Banda DO Unavailable [phone] Encounter Details Date Type Department Care Team (Late Contact Info) Description 06/08/2023 Clinisync Result Encounter [facility] External Department Unsolicited Anahi Cuenca PA [address] [place] [address] [place], [place] [id number] Social History Tobacco Use Types Packs/Day Years [...] [facility] [address] [place] [address] Kasi Bennett MD [address] [place] [address] 11/23/2024 1:00 PM EDT Office Visit [facility] [address] [place] [address] Ameena Vera, PADDLE DYEING MACHINE OPERATOR [address] [place] [address] 03/30/2025 11:15 AM EST Office Visit [facility] [address] [place] [address] Elida Monroy MD [address] [place] [address] documented as of this encounter Procedures Procedure Name Priority Date/Time Associated Diagnosis Comments CT FOOT LT WO CON 06/08/2023 6:2 9 PM EDT documented in this encounter Results * CT FOOT LT WO CON (06/08/2023 6:29 PM EDT) Anatomical Region Laterality Modality Other 06/08/2023 6:29 PM EDT Narrative 06/08/2023 6:32 PM EDT The [address] [address] [address] Scan Report Signed Patient: KARINA DE OLIVEIRA MR#: [id number] : 1965 Acct:[id number] Age/Sex: 57 / F ADM Date: 06/08/23 Loc: [place] 231-[address]: Rivas Rendon M.D. Ordering Physician: Anhai Cuenca Date of Service: 06/08/23 Procedure(s): CT foot LT wo con Accession Number(s): [id number] cc: Shaikh Erica Connelly [facility] [place] [address] Patient Name: KARINA DE OLIVEIRA MRN: [facility]:[id number] date: 1965 Sex: F Assigned Patient Location: ER Current Patient Location: [place] Accession/Order Number: [id number] Exam Date: 06/08/2023 17:15 Report Date: 06/08/2023 18:29 At the request of: ANAHI CUENCA Procedure: CT foot LT wo con IMAGES REVIEWED: CT foot LT wo con COMPARISON: Same day x-rays. CLINICAL INDICATION: pain Technique: Multiplanar CT images of the left foot without contrast. Dose reduction techniques were achieved by using automated exposure control and/or adjustment of mA and/or kV according to patient size and/or use of iterative reconstruction technique. FINDINGS: Acute very severe Lisfranc midfoot fracture-dislocation injury of the midfoot. Acute highly comminuted intra-articular displaced fracture of the first cuneiform and acute comminuted intra-articular fracture of the first metatarsal base with dorsal dislocation/subluxation of the first metatarsal base relative to the first cuneiform. In particular there is a highly comminuted fracture of the first cuneiform in the region of the Lisfranc ligament attachment with widening between the fractured first cuneiform and second metatarsal base consistent with Lisfranc injury. Acute intra-articular mildly displaced fractures of the second and third cuneiforms. Acute intra-articular mildly comminuted mildly displaced fractures of the third, fourth, fifth metatarsal bases. Acute fracture of the mid second metatarsal shaft demonstrating apex lateral angulation. CT/CT foot LT wo con IMPRESSION: Acute very severe Lisfranc midfoot fracture-dislocation injury of the midfoot as detailed above. Electronically authenticated by: NILO MUÑOZ Date: 06/08/2023 18:29 Dictated By: Nilo Muñoz M.D. Signed By: 06/08/231831 DD/ 28 TD/TT: Principal Administrative Clerk: Procedure Note Radiology, Radiologist, - 06/08/2023 [place] [address] CT Scan Report Signed Patient: KARINA DE OLIVEIRA KMR#: [id number] : 1965Acct:[id number] Age/Sex: 57 / FADM Date: 06/08/23 Loc: [place] 231-[address]: Rivas Rendon M.D. Ordering Physician: Anahi Cuenca Date of Service: 06/08/23 Procedure(s): CT foot LT wo con Accession Number(s): [id number] cc: Shaikh Erica Connelly [place] [address] Patient Name: KARINA DE OLIVEIRA MRN: [facility]:[id number] date: 1965 Sex: F Assigned Patient Location: ER Current Patient Location: [place] Accession/Order Number: [id number] Exam Date: 06/08/2023 17:15 Report Date: 06/08/2023 18:29 At the request of: ANAHI CUENCA Procedure: CT foot LT wo con IMAGES REVIEWED: CT foot LT wo con COMPARISON: Same day x-rays. CLINICAL INDICATION: pain Technique: Multiplanar CT images of the left foot without contrast. Dose reduction techniques were achieved by using automated exposurecontrol and/or adjustment of mA and/or kV according to patient size and/or use of iterative reconstruction technique. FINDINGS: Acute very severe Lisfranc midfoot fracture-dislocation injury of themidfoot. Acute highly comminuted intra-articular displaced fracture of the first cuneiform and acute comminuted intra-articular fracture of the first metatarsal base with dorsal dislocation/subluxation of the first metatarsal baserelative to the first cuneiform. In particular there is a highly comminutedfracture of the first cuneiform in the region of the Lisfranc ligament attachment with widening between the fractured first cuneiform and second metatarsal base consistent with Lisfranc injury. Acute intra-articular mildly displaced fractures of the second and third cuneiforms. Acute intra-articular mildly comminuted mildly displaced fractures of the third, fourth, fifthmetatarsal bases. Acute fracture of the mid second metatarsal shaft demonstratingapex lateral angulation. CT/CT foot LT wo con IMPRESSION: Acute very severe Lisfranc midfoot fracture-dislocation injury of themidfoot as detailed above. Electronically authenticated by: NILO MUÑOZ Date: 06/08/2023 18:29 Dictated By: Nilo Muñoz M.D. Signed By:06/08/231831 DD/ 28 TD/TT: Principal Administrative Clerk: us Anahi [facility] Final Result documented in this encounter Visit Diagnoses Not on filedocumented in this encounter Care Teams Obstetric Anaesthetist Relationship Specialty Start Date End Date Shaikh Connelly MD [address] [place] [address] PCP - General Internal Medicine 05/02/23 09/23/23 Jose Chandler MD [address] [place] [address] PCP - General Family Medicine 09/24/23 11/25/23 Unallocated, Timur Hernandez MD [address] [place] [address] PCP - General Family Medicine 11/26/23 12/11/23 Jose Chandler MD [address] [place] [address] PCP - General Family Medicine 12/12/23 Ijeoma Drake NP [address] [place] [address] Nurse Practitioner Family Medicine 09/24/23 Za Wilkerson NP [address] [place] [address] Nurse Practitioner Neurology 04/21/24 Madhuri Banda DO [address] [place] [address] Referring Physician Neurology 04/21/24 documented as of this encounter
--- OUTSIDE RECORDS SUMMARY | 2024-09-20 21:58 | XMS_ITS | Encounter Summary ---
Author Organization [facility] Address [address] [place] [address] Care Team Providers Care Selling Specialist Name Role Phone Shaikh BUNNY Connelly Primary Care Provider [phone] Jose Chandler MD Primary Care Provider [phone] Ijeoma Drake MEAT SLICER Unavailable [phone] Unallocated, Timur Hernandez MD Primary Care Provi shayna Jose Chandler MD Primary Care Provider [phone] Za Wilkerson MEAT SLICER Unavailable [phone] Madhuri Banda DO Unavailable [phone] Encounter Details Date Type Department Care Team (Late st Contact Info) Description 06/11/2023 Orders Only [facility] [address] [place] [address] Shaikh Connelly MD [address] [place] [address] Social History Tobacco Use Types Packs/Day Years [...] [facility] [address] [place] [address] Kasi Bennett MD [address] [place] [address] 11/23/2024 1:00 PM EDT Office Visit [facility] [address] [place] [address] Ameena Vera NP [address] [place] [address] 03/30/2025 11:15 AM EST Office Visit [facility] [address] [place] [address] Elida Monroy MD [address] [place] [address] documented as of this encounter Procedures Procedure Name Priority Date/Time Associated Diagnosis Comments XR FOOT 3+ VIEWS LEFT Routine 06/10/2023 9:46 AM EDT documented in this encounter Results * XR foot 3+ views left (06/10/2023 9:46 AM EDT) Anatomical Region Laterality Modality Lower Extremities, Foot Left Radiogra phic Imaging us Shaikh Maricel [facility] XR PROCEDURES Final Result documented in this encounter Visit Diagnoses Not on filedocumented in this encounter Care Teams Selling Specialist Relationship Specialty Start Date End Date Shaikh Connelly MD [address] [place] [address] PCP - General Internal Medicine 05/02/23 09/23/23 Jose Chandler MD [address] [place] [address] PCP - General Family Medicine 09/24/23 11/25/23 Unallocated, [facility] MD David [address] [place] [address] PCP - General Family Medicine 11/26/23 12/11/23 Jose Chandler MD [address] [place] [address] PCP - General Family Medicine 12/12/23 Ijeoma Drake NP [address] [place] [address] Nurse Practitioner Family Medicine 09/24/23 Za Wilkerson NP [address] [place] [address] Nurse Practitioner Neurology 04/21/24 Madhuri Banda DO [address] [place] [address] Referring Physician Neurology 04/21/24 documented as of this encounter
--- OUTSIDE RECORDS SUMMARY | 2024-09-20 21:58 | XMS_ITS | Encounter Summary ---
Author Organization [facility] Address [address] [place] [place] [address] Care Team Providers Care Twisting Press Operator Name Role Phone Shaikh BUNNY Connelly Primary Care Provider [phone] Jose Chandler MD Primary Care Provider [phone] Ijeoma Drake CONSTRUCTION STONEMASON Unavailable [phone] Unallocated, Timur Provider Primary Care Provi shayna Jose Chandler MD Primary Care Provider [phone] Za Wilkerson CONSTRUCTION STONEMASON Unavailable [phone] Madhuri Banda DO Unavailable [phone] Encounter Details Date Type Department Care Team (Late Contact Info) Description 06/08/2023 Clinisync Result Encounter [facility] External Department Unsolicited Anahi Soriano PA [address] [place] [address] [place], [place] [id number] Social History Tobacco Use Types Packs/Day Years [...] EDT Office Visit [facility] [address] [place] [address] Kasi Bennett MD [address], [address] [place] [address] 11/23/2024 1:00 PM EDT Office Visit [facility] [address] [place] [address] Ameena Vera, CONSTRUCTION STONEMASON [address] [place] [address] 03/30/2025 11:15 AM EST Office Visit [facility] [place] [facility] [address] [place] [address] Elida Monroy MD [address] [place] [address] documented as of this encounter Procedures Procedure Name Priority Date/Time Associated Diagnosis Comments ECG 12-LEAD 06/08/2023 3:37 PM EDT documented in this encounter Results * ECG 12-LEAD (06/08/2023 3:37 PM EDT) Anatomical Region Laterality Modality Other 06/08/2023 3:37 PM EDT Narrative 06/09/2023 7:12 AM EDT The [address] [address] Electrocardiograph Report Signed Patient: KARINA DE OLIVEIRA MR#: [id number] : 1965 Acct:[id number] Age/Sex: 57 / F ADM Date: 06/08/23 Loc: MS 231-[address]: Virginia Rendon M.D. Ordering Physician: Anahi Soriano Date of Service: 06/08/23 Procedure(s): ECG 12 lead Accession Number(s): [id number] cc: The [facility] Test Date: 2023-06-08 Pat Name: KARINA DE OLIVEIRA Department: Room: - Gender: Female Basket Bottom Machine Operator: : 1965 Requested By: SHAIKH ELY Order Number: [id number] Reading MD: VIRGINIA RENDON Measurements Intervals [place] Rate: 100 P: 69 HI: 170 QRS: 266 QRSD: 80 T: 58 QT: 326 QTc: 383 Interpretive Statements 1102 Sinus arrhythmia 1120 Sinus tachycardia 5130 Right ventricular hypertrophy 8003 Consistent with pulmonary disease 9150 abnormal ECG Compared to ECG 01/12/2017 16:53:36 Right ventricular hypertrophy now present Sinus rhythm no longer present Intraventricular conduction delay no longer present Left anterior fascicular block no longer present Electronically Signed On 06-09-2023 7:12:35 EDT by VIRGINIA RENDON Dictated By: Virginia Rendon M.D. Signed By: 06/09/23 0712 DD/ 1537 TD/TT: Locket Maker: Procedure Note Radiology, Radiologist, MD - 06/09/2023 [place] [address] Electrocardiograph Report Signed Patient: KARINA DE OLIVEIRA KMR#: [id number] : 1965Acct:[id number] Age/Sex: 57 / FADM Date: 06/08/23 Loc: MS 231-[address]: Virginia Rendon M.D. Ordering Physician: Anahi Soriano Date of Service: 06/08/23 Procedure(s): ECG 12 lead Accession Number(s): [id number] cc: The [facility] Test Date: 2023-06-08 Pat Name: KARINA DE OLIVEIRA Department: Room: - Gender: Female Basket Bottom Machine Operator: : 1965 Requested By: SHAIKH ELY Order Number: [id number] Reading MD: VIRGINIA RENDON Measurements Intervals [place] Rate: 100 P: 69 HI: 170 QRS: 266 QRSD: 80 T: 58 QT: 326 QTc: 383 Interpretive Statements 1102 Sinus arrhythmia 1120 Sinus tachycardia 5130 Right ventricular hypertrophy 8003 Consistent with pulmonary disease 9150 abnormal ECG Compared to ECG 01/12/2017 16:53:36 Right ventricular hypertrophy now present Sinus rhythm no longer present Intraventricular conduction delay no longer present Left anterior fascicular block no longer present Electronically Signed On 06-09-2023 7:12:35 EDT by VIRGINIA RENDON Dictated By: Virginia Rendon M.D. Signed By:06/09/23 0712 DD/ 1537 TD/TT: Locket Maker: Anahi [facility] Final Result documented in this encounter Visit Diagnoses Not on filedocumented in this encounter Care Teams Twisting Press Operator Relationship Specialty Start Date End Date Shaikh Connelly MD [address] [place] [address] PCP - General Internal Medicine 05/02/23 09/23/23 Jose Chandler MD [address] [place] [address] PCP - General Family Medicine 09/24/23 11/25/23 Unallocated, Timur Hernandez MD [address] [place] [address] PCP - General Family Medicine 11/26/23 12/11/23 Jose Chandler MD [address] [place] [address] PCP - General Family Medicine 12/12/23 Ijeoma Drake NP [address] [place] [address] Nurse Practitioner Family Medicine 09/24/23 Za Wilkerson NP [address] [place] [address] Nurse Practitioner Neurology 04/21/24 Madhuri Banda DO [address] [place] [address] Referring Physician Neurology 04/21/24 documented as of this encounter
--- OUTSIDE RECORDS SUMMARY | 2024-09-20 21:58 | XMS_ITS | Encounter Summary ---
Author Organization [facility] Address [address] [place] [address] Care Team Providers Care Global Account Manager Name Role Phone Shaikh BUNNY Connelly Primary Care Provider [phone] Shaikh BUNNY Connelly Primary Care Provider [phone] Jose Chandler MD Primary Care Provider [phone] Ijeoma Drake SHOULDER BONER Unavailable [phone] Unallocated, [facility] Provider Primary Care Provi shayna Jose Chandler MD Primary Care Provider [phone] Za Wilkerson SHOULDER BONER Unavailable [phone] Madhuri Banda DO Unavailable [phone] Encounter Details Date Type Department Care Team (Late st Contact Info) Description 03/20/2023 Clinisync Result Encounter [facility] External Department Unsolicited [...] 09/30/2024 2:40 PM EDT Office Visit [facility] [address] [place] [address] Kasi Bennett MD [address] [place] [address] 11/23/2024 1:00 PM EDT Office Visit [facility] [address] [place] [address] Ameena Vera NP [address] [place] [address] 03/30/2025 11:15 AM EST Office Visit [facility] [address] [place] [address] Elida Monroy MD [address] [place] [address] documented as of this encounter Procedures Procedure Name Priority Date/Time Associated Diagnosis Comments MM TOMOSYNTHESIS SCREENING BI 03/20/2023 12:57 PM EST documented in this encounter Results * MM TOMOSYNTHESIS SCREENING BI (03/20/2023 12:57 PM EST) Anatomical Region Laterality Modality Other 03/20/2023 12:5 7 PM EST Narrative 03/20/2023 12:59 PM EST The [address] [address] Mammography Report Signed Patient: KARINA DE OLIVEIRA MR#: [id number] : 1965 Acct:[id number] Age/Sex: 57 / F ADM Date: 03/20/23 Loc: MAMMO Attending Dr: RADHA TRIVEDI Ordering Physician: RADHA TRIVEDI Results: Date of Service: 03/20/23 Follow Up: Procedure(s): MM tomosynthesis screening BI Accession Number(s): [id number] cc: Shaikh Erica Connelly; RADHA TRIVEDI Patient Name: KARINA DE OLIVEIRA MR#: [id number] : 1965 Exam Date: 03/20/2023 Ordering Doctor: DR RADHA TRIVEDI [facility] RADIOLOGY REPORT PROCEDURE: MM TOMOSYNTHESIS SCREENING BI COMPARISON: MG MAMM SCREEN 3D SALINA CAD, 01/31/2021. MG MAMM SCREEN SALINA W CAD, 02/02/2020. INDICATIONS: screening Calculator Name NCI Breast Cancer Risk Assessment Tool 5 Year Breast Cancer Risk 1.20% Lifetime Breast Cancer Risk 6.70% Personal Breast Cancer No Personal Ovarian Cancer No Treatments None Family Cancers Grandfather-maternal with prostate cancer at age 70; Mother with skin cancer at age 71. LOCATION: The [facility] BREAST COMPOSITION: Scattered areas fibroglandular density. FINDINGS: DIAGNOSTIC CATEGORY 2--BENIGN FINDING. NO CHANGE FROM COMPARISON. Scattered benign-appearing calcifications are present. Scattered benign-appearing lymph nodes are present. RIGHT BREAST: No significant suspicious finding. LEFT BREAST: No significant suspicious finding. RECOMMENDATIONS: ROUTINE MAMMOGRAM AND CLINICAL EVALUATION IN 12 MONTHS. PLEASE NOTE: A NORMAL MAMMOGRAM DOES NOT EXCLUDE THE POSSIBILITY OF BREAST CANCER. A CLINICALLY SUSPICIOUS PALPABLE LUMP SHOULD BE BIOPSIED. Dictated by: Marlon Wang MD on 03/20/2023 at 12:56 Approved by: Marlon Wang MD on 03/20/2023 at 12:57 Dictated By: Marlon Wang M.D. Signed By: 03/20/23 1259 DD/ 1257 TD/TT: Nurse Tech: Procedure Note Radiology, Radiologist, - 03/20/2023 The [place] [id number] Mammography Report Signed Patient: KARINA DE OLIVEIRA KMR#: [id number] : 1965Acct:[id number] Age/Sex: 57 / FADM Date: 03/20/23 Loc: MAMMO Attending Dr: RADHA TRIVEDI Ordering Physician: RADHA TRIVEDIResults: Date of Service: 03/20/23Follow Up: Procedure(s): MM tomosynthesis screening BI Accession Number(s): [id number] cc: Shaikh Erica Connelly; RADHA TRIVEDI Patient Name: KARINA DE OLIVEIRA MR#: [id number] : 1965 Exam Date: 03/20/2023 Ordering Doctor: DR RADHA TRIVEDI [facility] RADIOLOGY REPORT PROCEDURE: MM TOMOSYNTHESIS SCREENING BI COMPARISON: MG MAMM SCREEN 3D [place] CAD, 01/31/2021. MG MAMM SCREEN BILW CAD, 02/02/2020. INDICATIONS: screening Calculator Name NCI Breast Cancer Risk Assessment Tool 5 Year Breast Cancer Risk 1.20% Lifetime Breast Cancer Risk 6.70% Personal Breast Cancer No Personal Ovarian Cancer No Treatments None Family Cancers Grandfather-maternal with prostate cancer at age 70;Mother with skin cancer at age 71. LOCATION: The [facility] BREAST COMPOSITION: Scattered areas fibroglandular density. FINDINGS: DIAGNOSTIC CATEGORY 2--BENIGN FINDING. NO CHANGE FROM COMPARISON. Scattered benign-appearing calcifications are present. Scattered benign-appearing lymph nodes are present. RIGHT BREAST: No significant suspicious finding. LEFT BREAST: No significant suspicious finding. RECOMMENDATIONS: ROUTINE MAMMOGRAM AND CLINICAL EVALUATION IN 12 MONTHS. PLEASE NOTE: A NORMAL MAMMOGRAM DOES NOT EXCLUDE THE POSSIBILITY OFBREAST CANCER. A CLINICALLY SUSPICIOUS PALPABLE LUMP SHOULD BE BIOPSIED. Dictated by: Marlon Wang MD on 03/20/2023 at 12:56 Approved by: Marlon Wang MD on 03/20/2023 at 12:57 Dictated By: Marlon Wang M.D. Signed By:03/20/23 1259 DD/ 1257 TD/TT: Nurse Tech: Generic External Data Provider [facility] Final Result documented in this encounter Visit Diagnoses Not on filedocumented in this encounter Care Teams Global Account Manager Relationship Specialty Start Date End Date Shaikh Connelly MD PCP - General Internal Medicine 11/11/22 05/01/23 Shaikh Connelly MD [address] [place] [address] PCP - General Internal Medicine 05/02/23 09/23/23 Jose Chandler MD [address] [place] [address] PCP - General Family Medicine 09/24/23 11/25/23 Unallocated, Timur Hernandez MD [address] [place] [address] PCP - General Family Medicine 11/26/23 12/11/23 Jose Chandler MD [address] [place] [address] PCP - General Family Medicine 12/12/23 Ijeoma Drake NP [address] [place] [address] Nurse Practitioner Family Medicine 09/24/23 Za Wilkerson NP [address] [place] [address] Nurse Practitioner Neurology 04/21/24 Madhuri Banda DO [address] [place] [address] Referring Physician Neurology 04/21/24 documented as of this encounter
--- OUTSIDE RECORDS SUMMARY | 2024-09-20 21:58 | XMS_ITS | Encounter Summary ---
Author Organization [facility] Address [address] [place] [address] Care Team Providers Care Government Relations Analyst Name Role Phone Shaikh BUNNY Connelly Primary Care Provider [phone] Shaikh BUNNY Connelly Primary Care Provider [phone] Jose Chandler MD Primary Care Provider [phone] Ijeoma Drake FAMILY DEVELOPMENT SPECIALIST Unavailable [phone] Unallocated, Noms Provider Primary Care Provi shayna Jose Chandler MD Primary Care Provider [phone] Za Wilkerson FAMILY DEVELOPMENT SPECIALIST Unavailable [phone] Madhuri Banda DO Unavailable [phone] Encounter Details Date Type Department Care [...] EDT Office Visit [facility] [address] [place] [address] Kasi Bennett MD [address], [address] [place] [address] 11/23/2024 1:00 PM EDT Office Visit [facility] [address] [place] [address] Ameena Vera, RONALDO [address] [place] [address] 03/30/2025 11:15 AM EST Office Visit [facility] [place] [facility] [address] [place] [address] Elida Monroy MD [address] [place] [address] documented as of this encounter Procedures Procedure Name Priority Date/Time Associated Diagnosis Comments [facility] LIVER PANEL Routine 03/20/2023 9:58 AM EST ALL LIPID PROFILE (FASTING) Routine 03/20/2023 9:58 AM EST XR DEXA AXIAL SKELETON 03/20/2023 9:48 AM EST documented in this encounter Results * ALL LIPID PROFILE (FASTING) (03/20/2023 9:58 AM EST) TRIGLYCERIDES 103 <=150 mg/dL TBH CHOLESTEROL 110 <=200 mg/dL TB HDL CHOLESTEROL 47 40 - 60 mg/dL TB Comment: > or =60 mg/dl - LOW CARDIOVASCULAR RISK <40 mg/dl - HIGH CARDIOVASCULAR RISK LDL CHOLESTEROL CALCULATED 42.4 mg/dL TB Comment: <100 mg/dl OPTIMAL 100-129 mg/dl NEAR OR ABOVE OPTIMAL 130-159 mg/dl BORDERLINE HIGH 160-189 mg/dl HIGH >190 mg/dl VERY HIGH VLDL CHOLESTEROL 20.6 mg/dL TB CHOL HDL RATIO 2.3 TB Comment: 3.3 - 4.4 LOW RISK 4.4 - 7.1 AVERAGE RISK 7.1 - 11.0 MODERATE RISK >11.0 HIGH RISK 03/20/2023 9:58 AM EST 03/20/2023 10:03 AM EST Narrative [facility] - 03/20/2023 11:07 AM EST Shaikh Maricel HOLLIS [facility]IN[facility] Final Result Performing Organization Address [facility] de Phone Number [facility] * (ABNORMAL) [facility] LIVER PANEL (03/20/2023 9:58 AM EST) BILIRUBIN TOTAL 0.3 0.2 - 1.0 mg/dL [facility] BILIRUBIN DIRECT 0.1 0.0 - 0.2 mg/dL [facility] ASPARTATE AMINO TRANSFERASE 15 15 - 37 U/L [facility] ALANINE AMINOTRANSFERASE 26 14 - 59 U/L [facility]H ALKALINE PHOSPHATASE 66 46 - 116 U/L [facility] TOTAL PROTEIN 7.5 6.4 - 8.2 g/dL [facility] ALBUMIN LEVEL 3.3(L) 3.4 - 5.0 g/dL [facility] GLOBULIN 4.2 g/dL [facility] ALBUMIN GLOBULIN RATIO 0.8 [facility] 03/20/2023 9:58 AM EST 03/20/2023 10:03 AM EST Narrative CLINIS[facility]NC - 03/20/2023 11:07 AM EST Shaikh Maricel HOLLIS [facility] Final Result Performing Organization Address [facility] de Phone Number [facility] * XR DEXA AXIAL SKELETON (03/20/2023 9:48 AM EST) Anatomical Region Laterality Modality Other 03/20/2023 9:48 AM EST Narrative 03/20/2023 9:50 AM EST [address] [address] XRay Report Signed Patient: KARINA DE OLIVEIRA MR#: [id number] : 1965 Acct:[id number] Age/Sex: 57 / F ADM Date: 03/20/23 Loc: MAMMO Attending Dr: RADHA TRIVEDI Ordering Physician: RADHA TRIVEDI Date of Service: 03/20/23 Procedure(s): XR DEXA axial skeleton Accession Number(s): [id number] cc: Shaikh Erica Connelly; RADHA TRIVEDI The [place] [id number] Patient Name: KARINA DE OLIVEIRA MRN: [id number] date: 1965 Sex: F Assigned Patient Location: MAMMO Current Patient Location: LAB Accession/Order Number: [id number] Exam Date: 03/20/2023 09:28 Report Date: 03/20/2023 09:48 At the request of: RADHA TRIVEDI Procedure: XR DEXA axial skeleton EXAMINATION: XR DEXA axial skeleton, 03/20/2023 9:28 AM EST HISTORY: menopause Z78.0 COMPARISON: 2007 TECHNIQUE: Dual-energy X-ray absorptiometry (DEXA) bone density study performed for the axial skeleton. HISTORY: menopause Z78.0 FINDINGS: Bone mineral density AP spine L2-L4 measures 1.863 g/sq cm. T score 5.5. This elevated bone mineral density is likely related to degenerative spondylosis Lowest bone mineral density is in the left femoral trochanter measuring 1.075 g/sq cm. T score 1.9. WHO classification: Normal XR/XR DEXA axial skeleton IMPRESSION: Normal bone mineral density. Low fracture risk Electronically authenticated by: RYAN GOLDMAN Date: 03/20/2023 09:48 Dictated By: Ryan Goldman M.D. Signed By: 03/20/2350 DD/ 7 TD/TT: Aerobics Teacher: Procedure Note Radiology, Radiologist, MD - 03/20/2023 [place] [address] XRay Report Signed Patient: KARINA DE OLIVEIRA KMR#: [id number] : 1965Acct:[id number] Age/Sex: 57 / FADM Date: 03/20/23 Loc: MAMMO Attending Dr: RADHA TRIVEDI Ordering Physician: RADHA TRIVEDI Date of Service: 03/20/23 Procedure(s): XR DEXA axial skeleton Accession Number(s): [id number] cc: Shaikh Erica Connelly; RADHA TRIVEDI [address] [address] Patient Name: KARINA DE OLIVEIRA MRN: [id number] date: 1965 Sex: F Assigned Patient Location: MAMMO Current Patient Location: LAB Accession/Order Number: [id number] Exam Date: 03/20/2023 09:28 Report Date: 03/20/2023 09:48 At the request of: RADHA TRIVEDI Procedure: XR DEXA axial skeleton EXAMINATION: XR DEXA axial skeleton, 03/20/2023 9:28 AM EST HISTORY: menopause Z78.0 COMPARISON: 2007 TECHNIQUE: Dual-energy X-ray absorptiometry (DEXA) bone density study performed for the axial skeleton. HISTORY: menopause Z78.0 FINDINGS: Bone mineral density AP spine L2-L4 measures 1.863 g/sq cm. T score 5.5.This elevated bone mineral density is likely related to degenerativespondylosis Lowest bone mineral density is in the left femoral trochanter measuring1.075 g/sq cm. T score 1.9. WHO classification: Normal XR/XR DEXA axial skeleton IMPRESSION: Normal bone mineral density. Low fracture risk Electronically authenticated by: RYAN GOLDMAN Date: 03/20/2023 09:48 Dictated By: Ryan Goldman M.D. Signed By:03/20/23949 DD/ 7 TD/TT: Aerobics Teacher: us Generic External Data Provider [facility] Final Result documented in this encounter Visit Diagnoses Not on filedocumented in this encounter Care Teams Government Relations Analyst Relationship Specialty Start Date End Date Shaikh Connelly MD PCP - General Internal Medicine 11/11/22 05/01/23 Shaikh Connelly MD [address] [place] [address] PCP - General Internal Medicine 05/02/23 09/23/23 Jose Chandler MD [address] [place] [address] PCP - General Family Medicine 09/24/23 11/25/23 Unallocated, Timur Hernandez MD [address] [place], [place] [address] PCP - General Family Medicine 11/26/23 12/11/23 Jose Chandler MD [address] [place] [address] PCP - General Family Medicine 12/12/23 Ijeoma Drake NP [address] [place] [address] Nurse Practitioner Family Medicine 09/24/23 Za Wilkerson NP [address] [place] [address] Nurse Practitioner Neurology 04/21/24 Madhuri Banda DO [address] [place] [address] Referring Physician Neurology 04/21/24 documented as of this encounter
--- OUTSIDE RECORDS SUMMARY | 2024-09-20 21:58 | XMS_ITS | Encounter Summary ---
Author Organization [facility] Address [address] [place] [address] Care Team Providers Care Siebel Consultant Name Role Phone Shaikh BUNNY Connelly Primary Care Provider [phone] Jose Chandler MD Primary Care Provider [phone] Ijeoma Drake LAUNDERER HAND Unavailable [phone] Unallocated, Timur Hernandez MD Primary Care Provi shayna Jose Chandler MD Primary Care Provider [phone] Za Wilkerson LAUNDERER HAND Unavailable [phone] Madhuri Banda DO Unavailable [phone] Encounter Details Date Type Department Care Team (Late st Contact Info) Description 05/22/2023 Clinisync Result Encounter [facility] External Department Unsolicited [...] PM EDT Office Visit [facility] [address] [place] [address] Kasi Bennett MD [address], [address] [place] [address] 11/23/2024 1:00 PM EDT Office Visit [facility] [address] [place] [address] Ameena Vera NP [address] [place] [address] 03/30/2025 11:15 AM EST Office Visit [facility] [place] [facility] [address] [place] [address] Elida Monroy MD [address] [place] [address] documented as of this encounter Procedures Procedure Name Priority Date/Time Associated Diagnosis Comments XR LUMBAR SPINE 6V W BENDING 05/22/2023 3:48 PM EDT documented in this encounter Results * XR LUMBAR SPINE 6V W BENDING (05/22/2023 3:48 PM EDT) Anatomical Region Laterality Modality Other 05/22/2023 3:48 PM EDT Narrative 05/22/2023 3:51 PM EDT The [address] [address] XRay Report Signed Patient: KARINA DE OLIVEIRA MR#: [id number] : 1965 Acct:[id number] Age/Sex: 57 / F ADM Date: 05/22/23 Loc: RAD Attending Dr: James Tijerina NP Ordering Physician: James Tijerina NP Date of Service: 05/22/23 Procedure(s): XR lumbar spine 6V w bending Accession Number(s): [id number] cc: Shaikh Erica Connelly; James Tijerina NP [place] [address] Patient Name: KARINA DE OLIVEIRA MRN: [id number] date: 1965 Sex: F Assigned Patient Location: [facility] Current Patient Location: [facility] Accession/Order Number: [id number] Exam Date: 05/22/2023 12:18 Report Date: 05/22/2023 15:48 At the request of: JAMES TIJERINA Procedure: XR lumbar spine 6V w bending EXAMINATION: XR lumbar spine 6V w bending HISTORY: lumbar stenosis COMPARISON: 06/07/2022 FINDINGS: BONES: Stable 30% anterior wedge compression fracture of L1. Multilevel grade 1 retrolisthesis of L1-L2 and L3. 5 mm anterolisthesis of L5. Moderate degenerative spondylosis and facet osteoarthropathy DISC SPACES: Multilevel disc space narrowing with endplate sclerosis and vacuum disks PARASPINOUS: Negative. No paraspinous abnormality is seen. OTHER: Vascular calcifications XR/XR lumbar spine 6V w bending IMPRESSION: Moderate diffuse degenerative changes Electronically authenticated by: RYAN GOLDMAN Date: 05/22/2023 15:48 Dictated By: Ryan Goldman M.D. Signed By: 05/22/23 1551 DD/ 1548 TD/TT: Toddler Caregiver: Procedure Note Radiology, Radiologist, MD - 05/22/2023 [place] [address] XRay Report Signed Patient: KARINA DE OLIVEIRA KMR#: [id number] : 1965Acct:[id number] Age/Sex: 57 / FADM Date: 05/22/23 Loc: [facility] Attending Dr: James Tijerina LAUNDERER HAND Ordering Physician: James Tijerina NP Date of Service: 05/22/23 Procedure(s): XR lumbar spine 6V w bending Accession Number(s): [id number] cc: Shaikh Erica Connelly; James Tijerina NP The [place] [id number] Patient Name: KARINA DE OLIVEIRA MRN: [id number] date: 1965 Sex: F Assigned Patient Location: [facility] Current Patient Location: RAD Accession/Order Number: [id number] Exam Date: 05/22/2023 12:18 Report Date: 05/22/2023 15:48 At the request of: JAMES TIJERINA Procedure: XR lumbar spine 6V w bending EXAMINATION: XR lumbar spine 6V w bending HISTORY: lumbar stenosis COMPARISON: 06/07/2022 FINDINGS: BONES: Stable 30% anterior wedge compression fracture of L1. Multilevelgrade 1 retrolisthesis of L1-L2 and L3. 5 mm anterolisthesis of L5. Moderate degenerative spondylosis and facet osteoarthropathy DISC SPACES: Multilevel disc space narrowing with endplate sclerosis and vacuum disks PARASPINOUS: Negative. No paraspinous abnormality is seen. OTHER: Vascular calcifications XR/XR lumbar spine 6V w bending IMPRESSION: Moderate diffuse degenerative changes Electronically authenticated by: RYAN GOLDMAN Date: 05/22/2023 15:48 Dictated By: Ryan Goldman M.D. Signed By:05/22/23 1551 DD/ 1548 TD/TT: Toddler Caregiver: us Generic External Data Provider [facility] Final Result documented in this encounter Visit Diagnoses Not on filedocumented in this encounter Care Teams Siebel Consultant Relationship Specialty Start Date End Date Shaikh Connelly MD [address] [place] [address] PCP - General Internal Medicine 05/02/23 09/23/23 Jose Chandler MD [address] [place] [address] PCP - General Family Medicine 09/24/23 11/25/23 Unallocated, Timur Hernandez MD [address] [place] [address] PCP - General Family Medicine 11/26/23 12/11/23 Jose Chandler MD [address] [place] [address] PCP - General Family Medicine 12/12/23 Ijeoma Drake NP [address] [place] [address] Nurse Practitioner Family Medicine 09/24/23 aZ Wilkerson NP [address] [place] [address] Nurse Practitioner Neurology 04/21/24 Madhuri Banda DO [address] [place] [address] Referring Physician Neurology 04/21/24 documented as of this encounter
--- OUTSIDE RECORDS SUMMARY | 2024-09-20 21:58 | XMS_ITS | Encounter Summary ---
Author Organization [facility] Address [address] [place] [address] Care Team Providers Care Teaching Pastor Name Role Phone Shaikh BUNNY Connelly Primary Care Provider [phone] Shaikh BUNNY Connelly Primary Care Provider [phone] Jose Chandler MD Primary Care Provider [phone] Ijeoma Drake CROSSING GUARD Unavailable [phone] Unallocated, Noms Provider Primary Care Provi shayna Jose Chandler MD Primary Care Provider [phone] Za Wilkerson CROSSING GUARD Unavailable [phone] Madhuri Banda DO Unavailable [phone] Encounter Details Date Type Department Care Team (Late st Contact Info) Description 01/12/2023 Clinisync Result Encounter [facility] External Department Unsolicited Provider, Generic External Data Social History Tobacco Use Types Packs/Day Years Used Date Smoking Tobacco: Never Assessed Comments Unknown Sex and Gender Information Value Date Recorded Sex Assigned at Not on file Legal Sex Female 6:48 PM EDT Gender Identity Not on file Sexual Orientation Not on file documented as of this encounter Plan of Treatment Upcoming Encounters Date Type Department Care Team (Late st Contact Info) Description 09/30/2024 2:40 PM EDT Office Visit [facility] [address] [place] [address] Kasi Bennett MD [address] [place] [address] 11/23/2024 1:00 PM EDT Office Visit [facility] [address] [place] [address] Ameena Vera NP [address] [place] [address] 03/30/2025 11:15 AM EST Office Visit [facility] [address] [place] [address] Elida Monroy MD [address] [place] [address] documented as of this encounter Procedures Procedure Name Priority Date/Time Associated Diagnosis Comments XR HAND 3+ VIEWS LEFT 01/12/2023 5:22 AM EST documented in this encounter Results * XR hand 3+ views left (01/12/2023 5:22 AM EST) Anatomical Region Laterality Modality Upper Extremities, Hand Left Radiogra phic Imaging 01/12/2023 5:22 AM EST Narrative 01/12/2023 5:22 AM EST The [address] [address] XRay Report Signed Patient: KARINA DE OLIVEIRA MR#: [id number] : 1965 Acct:[id number] Age/Sex: 57 / F ADM Date: 01/10/23 Loc: PM Attending Dr: James Tijerina NP Ordering Physician: James Tijerina NP Date of Service: 01/10/23 Procedure(s): XR hand LT min 3V Accession Number(s): [id number] cc: Shaikh Erica Connelly; James Tijerina NP [address] [address] Patient Name: KARINA DE OLIVEIRA MRN: [facility]:[id number] date: 1965 Sex: F Assigned Patient Location: PM Current Patient Location: Accession/Order Number: [id number] Exam Date: 01/10/2023 12:18 Report Date: 01/12/2023 05:22 At the request of: JAMES TIJERINA Procedure: XR hand LT min 3V PROCEDURE: XR hand LT min 3V HISTORY: left had pain M79.642 ; left thumb pain for one month; no known injury COMPARISON: None. FINDINGS: BONES:Tiny, 0.5 mm ossifications separate from the lateral proximal corner of the first digit distal phalanx suspected represents sequela of remote injury. Possible small erosion along the anterior lateral corner of the first distal phalanx at the interphalangeal joint. Minimal degenerative changes of the second digit distal interphalangeal joint. SOFT TISSUES:No visible soft tissue swelling. EFFUSION:None visible. OTHER: Negative. XR/XR hand LT min 3V IMPRESSION: 1. No appreciable acute bone abnormality. 2. Suspect mild degenerative changes of the first interphalangeal joint and second distal interphalangeal joint. 3. Remote versus acute tiny cortical avulsion fracture at first digit interphalangeal joint. Electronically authenticated by: NAVID CORTES Date: 01/12/2023 05:22 Dictated By: Navid Cortes M.D. Signed By: 01/12/23524 DD/ 1 TD/TT: Resident Caregiver: Procedure Note Radiology, Radiologist, MD - 01/14/2023 [place] [address] XRay Report Signed Patient: KARINA DE OLIVEIRA KMR#: [id number] : 1965Acct:[id number] Age/Sex: 57 / FADM Date: 01/10/23 Loc: PM Attending Dr: James Tijerina NP Ordering Physician: James Tijerina NP Date of Service: 01/10/23 Procedure(s): XR hand LT min 3V Accession Number(s): [id number] cc: Shaikh Erica Connelly; James Tijerina NP The [place] [address] Patient Name: KARINA DE OLIVEIRA MRN: [id number] date: 1965 Sex: F Assigned Patient Location: PM Current Patient Location: Accession/Order Number: [id number] Exam Date: 01/10/2023 12:18 Report Date: 01/12/2023 05:22 At the request of: JAMES TIJERINA Procedure: XR hand LT min 3V PROCEDURE: XR hand LT min 3V HISTORY: left had pain M79.642 ; left thumb pain for one month; no known injury COMPARISON: None. FINDINGS: BONES:Tiny, 0.5 mm ossifications separate from the lateral proximal cornerof the first digit distal phalanx suspected represents sequela of remoteinjury. Possible small erosion along the anterior lateral corner of the firstdistal phalanx at the interphalangeal joint. Minimal degenerative changes of the second digit distal interphalangeal joint. SOFT TISSUES:No visible soft tissue swelling. EFFUSION:None visible. OTHER: Negative. XR/XR hand LT min 3V IMPRESSION: 1. No appreciable acute bone abnormality. 2. Suspect mild degenerative changes of the first interphalangeal jointand second distal interphalangeal joint. 3. Remote versus acute tiny cortical avulsion fracture at first digit interphalangeal joint. Electronically authenticated by: NAVID CORTES Date: 01/12/2023 05:22 Dictated By: Navid Cortes M.D. Signed By:01/12/23524 DD/ 1 TD/TT: Resident Caregiver: Generic External Data Provider IMG XR PROCEDURES Final Result documented in this encounter Visit Diagnoses Not on filedocumented in this encounter Care Teams Teaching Pastor Relationship Specialty Start Date End Date Shaikh Connelly MD PCP - General Internal Medicine 11/11/22 05/01/23 Shaikh Connelly MD [address] [place] [address] PCP - General Internal Medicine 05/02/23 09/23/23 Jose Chandler MD [address] [place] [address] PCP - General Family Medicine 09/24/23 11/25/23 Unallocated, Timur Hernandez MD [address] [place], [place] [address] PCP - General Family Medicine 11/26/23 12/11/23 Jose Chandler MD [address] [place] [address] PCP - General Family Medicine 12/12/23 Ijeoma Drake NP [address] [place] [address] Nurse Practitioner Family Medicine 09/24/23 Za Wilkerson NP [address] [place] [address] Nurse Practitioner Neurology 04/21/24 Madhuri Banda DO [address] [place] [address] Referring Physician Neurology 04/21/24 documented as of this encounter
--- OUTSIDE RECORDS SUMMARY | 2024-09-20 21:58 | XMS_ITS | Encounter Summary ---
Author Organization [facility] Address [address] [place] [address] Care Team Providers Care Vamp Presser Name Role Phone Shaikh BUNNY Connelly Primary Care Provider [phone] Shaikh BUNNY Connelly Primary Care Provider [phone] Jose Chandler MD Primary Care Provider [phone] Ijeoma Drake CHARTERED WEALTH MANAGER Unavailable [phone] Unallocated, [facility]oms Provider Primary Care Provi shayna Jose Chandler MD Primary Care Provider [phone] Za Wilkerson CHARTERED WEALTH MANAGER Unavailable [phone] Madhuri Banda DO Unavailable [phone] Encounter Details Date Type Department Care Team (Late st Contact Info) Description 02/06/2023 Abstract [facility] [address] [place] [address] Shaikh Connelly MD [address] [place] [address] Social History Tobacco Use Types Packs/Day Years [...] Description 09/30/2024 2:40 PM EDT Office Visit [facility] [address] [place] [address] Kasi Bennett MD [address] [place] [address] 11/23/2024 1:00 PM EDT Office Visit [facility] [address] [place] [address] Ameena Vera, RONALDO [address] [place] [address] 03/30/2025 11:15 AM EST Office Visit [facility] [address] [place] [address] Elida Monroy MD [address] [place] [address] documented as of this encounter Visit Diagnoses Not on filedocumented in this encounter Care Teams Vamp Presser Relationship Specialty Start Date End Date Shaikh Connelly MD PCP - General Internal Medicine 11/11/22 05/01/23 Shaikh Connelly MD [address] [place] [address] PCP - General Internal Medicine 05/02/23 09/23/23 Jose Chandler MD [address] [place] [address] PCP - General Family Medicine 09/24/23 11/25/23 Unallocated, [facility] MD David [address] [facility] [place] [address] PCP - General Family Medicine 11/26/23 12/11/23 Jose Chandler MD [address] [place] [address] PCP - General Family Medicine 12/12/23 Ijeoma Drake NP [address] [place] [address] Nurse Practitioner Family Medicine 09/24/23 Za Wilkerson NP [address] [place] [address] Nurse Practitioner Neurology 04/21/24 Madhuri Banda DO [address] [place] [address] Referring Physician Neurology 04/21/24 documented as of this encounter
--- OUTSIDE RECORDS SUMMARY | 2024-09-20 21:58 | XMS_ITS | Clinical Summary ---
Author Organization [facility] Address [address], [address] [place] [address] Care Team Providers Care Tugboat Captain Name Role Phone House Sr., Jonathan INGRAM Primary Care Provider + Allergies Active Allergy Reactions Criticality Noted Date Comments Multiple Vitamin 02/26/2024 Medications alendronate (FOSAMAX) 70 MG tablet TAKE 1 TABLET BY MOUTH EVERY Saturday08/17/2021 Active ascorbic acid (VITAMIN C) 500 MG tablet Active aspirin 81 MG EC tablet Active diclofenac (VOLTAREN) 75 MG EC tablet TAKE 1 TABLET BY MOUTH TWICE DAILY 08/07/2021 Active divalproex (DEPAKOTE) [address] tablet Depakote 500 mg tablet,delaye d release Take 1 tablet twice a day by oral route. Active famotidine (PEPCID) 20 MG tablet TAKE 1 TABLET BY MOUTH EVERY DAY 08/16/2021 Active hydroCHLOROthia zide (HYDRODIURIL) 25 MG tablet TAKE 1 TABLET BY MOUTH EVERY DAY 08/16/2021 Active glimepiride (AMARYL) 1 MG tablet TAKE 1/2 TABLET BY MOUTH EVERY MORNING 06/05/2021 Active Lancets (ONETOUCH DELICA PLUS [id number]) [facility] USE TO TEST BLOOD SUGAR TWICE DAILY 06/08/2021 Active metFORMIN (GLUCOPHAGE) 500 MG tablet 2 tablets 2 times daily (with meals) 08/07/2021 Active pregabalin (LYRICA) 50 MG capsule Lyrica 50 mg capsule Take 1 capsule twice a day by oral route. Active traZODone (DESYREL) 50 MG tablet TAKE 1 TABLET BY MOUTH EVERY NIGHT AT BEDTIME 08/17/2021 Active oxyCODONE-aceta minophen (PERCOCET) 10-325 MG per tablet Percocet 10 mg-325 mg tablet Take 1 tablet as needed by oral route. Active methocarbamol (ROBAXIN) 750 MG tablet TAKE 1 TABLET BY MOUTH EVERY NIGHT AT BEDTIME 08/15/2021 Active ALLOPURINOL PO Take by mouth A ctive baclofen (LIORESAL) 10 MG tablet TAKE 1 TO 2 TABLETS BY MOUTH THREE TIMES DAILY Active ONETOUCH VERIO strip USE TWICE DAILY DIRECTED 12/19/2022 Active OZEMPIC, 1 MG/DOSE, 4 MG/3ML SOPN INJECT 1 MG UNDER THE SKIN ONCE A WEEK Active colchicine (COLCRYS) 0.6 MG tablet 12/24/2022 Active furosemide (LASIX) 20 MG tablet 02/02/2024 Active rosuvastatin (CRESTOR) 20 MG tablet Take 1 tablet by mouth daily 10/03/2023 Active Family History Medical History Relation Name Comments Deep Vein Thrombosis Father Diabetes Mother Heart Failure Mother Relation Name Status Comments Brother Alive Father Alive Maternal Grandfather Maternal Grandmother Mother Paternal Grandfather Paternal Grandmother Social History Tobacco Use Types Packs/Day Years Used Date Smoking Tobacco: Every Day Cigarettes Smokeless Tobacco: Never Tobacco Cessation:Ready to Q uit: Not Asked; Counseling Given: Not Answered Alcohol Use Standard Drinks/Week Comments Yes 0 (1 standard drink = 0.6 oz pur e alcohol) occasional [email or web address] Utilities Answer Date Recorded In the past 12 months has e [employer], [employer], oil, or water [employer] threatened to shut off services in your home? No 02/26/2024 PHQ-2 Answer Date Recorded PHQ-9 Total Score 0 02/26/2024 Hunger Vital Sign Answer Date Recorded Within the past 12 months, y ou worried that your food would run out before you got the money to buy more. Never true 02/25/19 25 Within the past 12 months, t he food you bought just didn't last and you didn't have money to get more. Never true 02/26/2024 PRAPARE - Transportation Answer Date Re corded In the past 12 months, has l ack of transportation kept you from medical appointments or from getting medications? No 02/11 In the past 12 months, has l ack of transportation kept you from meetings, work, or from getting things needed for daily living? No 02/26/2024 Housing Stability Vital Sign Answer Evan e Recorded In the last 12 months, was t here a time when you were not able to pay the mortgage or rent on time? No 02/26/2024 Number of Times Moved in the Last Year Not on fi le 02/26/2024 At any time in the [facility], were you homeless or living in a alf (including now)? No 02/26/2024 Food Insecurity Answer Date Recorded Within the past 12 months, y ou worried that your food would run out before you got the money to buy more. 1 02/26/2024 Within the past 12 months, t he food you bought just didn't last and you didn't have money to get more. 1 02/26/2024 Comments No Sex and Gender Information Value Date Recorded Sex Assigned at Not on file Legal Sex Female 6:26 PM EST Gender Identity Not on file Sexual Orientation Not on file Last Filed Vital Signs Vital Sign Reading Time Taken Comments Blood Pressure 126/76 02/26/2024 10:50 AM EST Pulse - - Temperature - - Respiratory Rate - - Oxygen Saturation - - Inhaled Oxygen Concentration - - Weight 99.8 kg (220 lb) 02/26/2024 10:50 AM EST Height 157.5 cm (5' 2 ) 02/26/2024 10:50 AM EST Body Mass Index 40.24 02/26/2024 10:50 AM EST Plan of Treatment Upcoming Encounters Date Type Department Care Team (Late st Contact Info) Description 03/03/2025 10:15 AM EST Office Visit [facility] Part of [address] [place] [address] Nikkie Barclay, HEAT TREATING FURNACE TENDER - [address] [place] [address] Return in about 1 year (around 02/25/2025) for yearly--healthscope ins primary per pt, then medicare--last yearly 02/26/2024--ok per Nikkie for 1 yr f/u Health Maintenance Due Date Last Done Comments Lipids 10/21/1973 HIV screen 10/21/1978 Hepatitis C screen 10/21/1981 DTaP/Tdap/Td vaccine (1 - Tdap) 10/21/1982 Pneumococcal 50+ years Vaccine (1 of 2 - PCV) 10/21/1982 Diabetes screen 10/21/1998 Colonoscopy 10/21/2008 Colorectal Cancer Screen 10/21/2008 FIT/FOBT: Average risk 10/21/2008 Fecal-DNA (Cologuard): Average risk 10/21/2008 Sigmoidoscopy/CT colonography 10/21/2008 Shingles vaccine (1 of 2) 10/21/2013 Annual Wellness Visit (Medicare) 01/07/2023 COVID-19 Vaccine (1 - 2023-2 5 season) 2023 Respiratory Syncytial Virus (RSV) or age 60 yrs+ (1 - Risk 60-74 years 1-dose series) 2023 Flu vaccine (#1) 09/11/2024 Depression Screen 02/25/2025 02/26/2024, 02/26/2024 Breast cancer screen 03/20/2025 03/20/2023 Cervical cancer screen Discontinued Pap smear Discontinued 02/26/2024, 08/30/2021, 08/30/2021 HPV (without or with Pap) Discontinued Hepatitis A vaccine Aged Out No longe r eligible based on patient's age to complete this topic Hepatitis B vaccine Aged Out No longe r eligible based on patient's age to complete this topic Hib vaccine Aged Out No longer eligi ble based on patient's age to complete this topic Meningococcal (ACWY) vaccine Aged Out No longer eligible based on patient's age to complete this topic Meningococcal B vaccine Aged Out No l onger eligible based on patient's age to complete this topic Polio vaccine Aged Out No longer elig ible based on patient's age to complete this topic Procedures Procedure Name Priority Date/Time Associated Diagnosis Comments TOO BRANDON DIGITAL SCREEN BILATERAL Routine 03/20/2023 Screening mammogram, encounter for TRANSLATOR/INTERPRETER CYTOLOGY Routine 08/30/2021 10:13 AM EDT from Last 3 Months or Most Recently Relevant to Health Maintenance Results * TOO BRANDON DIGITAL SCREEN BILATERAL (03/20/2023) Anatomical Region Laterality Modality Breast Bilateral Mammography Nikkie Barclay APRN - CNEverardo IMG MAMMOGRAPHY ORDERABLES Final Result * TRANSLATOR/INTERPRETER Cytology (08/30/2021 10:13 AM EDT) Cytology Report INTERPRETATION Vaginal material, (ThinPrep vial, Imaging-assisted review): Specimen Adequacy: Satisfactory for evaluation. Descriptive Diagnosis: Negative for intraepithelial lesion or malignancy. Charrer: CLARK Delacruz(ASCP) Electronically Signed Out 09/07/2021 Source: A: Vaginal material, (ThinPrep vial, Imaging-assisted review) Clinical History Hysterectomy Surgery: Salpingostomy; Ovary removal Z12.4 Encounter for screening for malignant neoplasm of cervix GYNECOLOGIC CYTOLOGY REPORT Patient Name: BRIAN WEIR Med Rec: [id number] Path Number: [id number] [facility] Process System [employer] [facility] [address] [place] [address] [facility] 08/30/2021 10:1 3 AM EDT 08/31/2021 10:13 AM EDT Nikkie Barclay APRN - CNEverardo PATHOLOGY/CYTOLO GY ORDERABLES Final Result [facility] [address] [place] [address], [facility] [phone] [employer] [phone] from Last 3 Months or Most Recently Relevant to Health Maintenance Insurance MEDICARE [employer] Care Teams Tugboat Captain Relationship Specialty Start Date End Date Jonathan Bean Sr., [address] [place] [address] PCP - General Family Medicine 08/30/21
--- OUTSIDE RECORDS SUMMARY | 2024-09-20 21:58 | XMS_ITS | Encounter Summary ---
Author Organization [facility] Address [address] [place] [address] Care Team Providers Care Slackline Operator Name Role Phone Shaikh BUNNY Connelly Primary Care Provider [phone] Shaikh BUNNY Connelly Primary Care Provider [phone] Jose Chandler MD Primary Care Provider [phone] Ijeoma Drake CALL CENTER COORDINATOR Unavailable [phone] Unallocated, Guillermos Provider Primary Care Provi shayna Jose Chandler MD Primary Care Provider [phone] Za Wilkerson CALL CENTER COORDINATOR Unavailable [phone] Madhuri Banda DO Unavailable [phone] Encounter Details Date Type Department Care Team (Late st Contact Info) Description 03/05/2023 Abstract [facility] [address] [place] [id number] Shaikh Connelly MD [address] [place] [address] Social History Tobacco Use Types Packs/Day Years [...] Office Visit [facility] [address] [place] [address] Kasi Bennett MD [address] [place] [address] 11/23/2024 1:00 PM EDT Office Visit [facility] [address] [place] [phone] Ameena Vera, RONALDO [address] [place] [phone] 03/30/2025 11:15 AM EST Office Visit [facility] [address] [place] [phone] Elida Monroy MD [address] [place] [address] documented as of this encounter Visit Diagnoses Not on filedocumented in this encounter Care Teams Slackline Operator Relationship Specialty Start Date End Date Shaikh Connelly MD PCP - General Internal Medicine 11/11/22 05/01/23 Shaikh Connelly MD [address] [place] [phone] PCP - General Internal Medicine 05/02/23 09/23/23 Jose Chandler MD [address] [place] [phone] PCP - General Family Medicine 09/24/23 11/25/23 Unallocated, Noms MD David [address] [facility] [place] [address] PCP - General Family Medicine 11/26/23 12/11/23 Jose Chandler MD [address] [place] [phone] PCP - General Family Medicine 12/12/23 Ijeoma Drake NP [address] [place] [address] Nurse Practitioner Family Medicine 09/24/23 Za Wilkerson NP [address] [place] [address] Nurse Practitioner Neurology 04/21/24 Madhuri Banda DO [address] [place] [address] Referring Physician Neurology 04/21/24 documented as of this encounter
--- OUTSIDE RECORDS SUMMARY | 2024-09-20 22:00 | XMS_ITS | CCD ---
Author Organization [facility] Care Team Providers Care Public Health Assistant Name Role Phone House DO, Sr Jonathan [...] Consulting Unavailable PIERCE ., CRYS Admitting Unavailable IPERCE ., CRYS Attending Unavailable PIERCE ., CRYS [...] ., NARENDRANATH Attending Nellie vailable LAKSHMIPATHY ., NARENDRANATH Consulting Nellie vailable HOUSE, DR BASURTO Admitting Unavailable HOUSE, DR BASURTO Attending Unavailable HOUSE, DR BASURTO Primary Care Unavailable [place], DR RYAN Guzman Consulting Unavailable HOUSE, DR [...] ., CRYS Consulting Unavailable Elle Hendricks Unavailable Maricel HOLLIS, Barrios Primary Care Provider [phone] [facility] MA[facility], Sonam Unavailable [phone] Ramesh HOLLIS, Jose Primary Care Provider Jose Chandler MD Primary Care Provider [phone] [facility] MANA[facility], Sonam Unavailable Rock HIGGINS, Za Unavailable Sivan Banda DO Unavailable Lui Banks II Attending UnavailLui Alvarado II Admitting Unavailcurtis e NON STAFF Primary Care Unavailable NON STAFF Primary Care Provider UnavailLui Alvarado MD Attending Provider Keo HOLLIS, Tanya Esposito Attending Unavailable Gillmor MANAGER INTENSIVE CARE UNIT, Za Unavailable SONAM DRAKE Attending SONAM Justin Attending ALICIA Simmons Attending Unavailable ZA WILKERSON Attending Unavailable AMEENA VERA Attending Unavailable KASI BENNETT Attending Unavailable AMEENA VERA Referring Unavailable SONAM DRAKE Attending SONAM Justin Attending SIVAN Hinkle Attending Unavailable SONAM DRAKE Referring AMEENA Figueredo Attending Unavailable Medications Current Medications Medication Drug Class(es) Dates Sig (Normalized) Sig (Original) acetaminophen 325 mg / oxyCODONE hydrochloride 5 mg oral tablet (20 sources) Opioid Agonist Start: 07-01-2024 take 1 tablet by mouth every twenty-four hours as needed oxyCODONE-acetami nophen (Percocet) 5-325 MG tablet Take 1 tablet by mouth Daily as needed 07/01/2024 Active Start: 07-20-2022 End: 12-31-2023 take 1 tablet by mouth once daily oxyCODONE-acetaminophen (Percocet) 5-325 MG tablet Take 1 tablet [...] May 28, 2024 12:00am Start: 03-09-2024 End: 02-15-2025 take 1 tablet by mouth in the [...] the next 30 min. 12 tablet 1 08/31/2024 02/15/2025 Active Start: 07-04-2023 End: 12-31-2023 take 1 [...] sources) Xanthine Oxidase Inhibitor Start: 07-04-2023 End: 11-18-2024 take 1 tablet by mouth once daily allopurinol (Zyloprim) 300 MG tablet Indications: Chronic gout of multiple sites, unspecified cause Take 1 tablet (300 mg) by mouth Daily 90 tablet 1 08/20/2024 11/18/2024 Active take 1 tablet by alonso th [...] May 28, 2024 12:00am Start: 08-22-2023 End: 11-02-2024 take 1 tablet by mouth three times daily as needed for muscle spasms baclofen (Lioresal) 20 MG tablet Indications: Lumbar back pain Take 1 tablet (20 mg) by mouth 3 (three) times a day as needed for muscle spasms 90 tablet 1 08/04/2024 11/02/2024 Active take 1 tablet by alonso th [...] Daily May 28, 2024 12:00am Start: 03-03-2024 End: 08-05-2024 colchicine 0.6 MG tablet Ind ications: Chronic gout of multiple sites, unspecified cause TAKE 2 TABLETS BY MOUTH AT ONSET OF ACUTE GOUT, MAY TAKE 1 TABLET IN 1 HOURS. NO MORE THAN 3 TABLETS DAILY 15 tablet 1 08/05/2024 Active Start: 12-18-2023 End: 12-31-2023 colchicine 0.6 [...] 30 tablet 11/04/2023 12/18/2023 Discontinued Continuous Glucose Swatch Paster (Dexcom G7 Swatch Paster) device (20 sources) Start: 03-03-2024 Continuous Glu cose Swatch Paster (Dexcom G7 Swatch Paster) device Indications: Type 2 diabetes mellitus with diabetic microalbuminuria, without long-term current use of insulin (HCC) 1 each continuously 1 each 03/03/2024 Active Start: 03-03-2024 Continuous Glu cose Swatch Paster (Dexcom G7 Swatch Paster) device Indications: Type 2 diabetes mellitus with diabetic microalbuminuria, without long-term current use of insulin (CMS/HCC) 1 each continuously 1 each 03/03/2024 Active Continuous Glucose Sensor (Dexcom G7 Sensor) misc (20 sources) Start: 08-05-2024 End: 09-04-2024 Continuous Glucose Sensor (D excom G7 Sensor) misc Indications: Type 2 diabetes mellitus with diabetic microalbuminuria, without long-term current use of insulin (HCC) 1 each continuously 3 each 11 08/05/2024 09/04/2024 Active Start: 03-30-2024 End: 08-05-2024 Continuous Glucose Sensor (D excom G7 Sensor) misc Indications: Type 2 diabetes mellitus with diabetic microalbuminuria, without long-term current use of insulin (HCC) 1 each continuously 3 each 11 03/30/2024 08/05/2024 Discontinued (Reorder) Start: 03-30-2024 Continuous Glu cose Sensor (Dexcom G7 Sensor) misc Indications: Type 2 diabetes mellitus with diabetic microalbuminuria, without long-term current use of insulin (HCC) 1 each continuously 3 each 03/30/2024 Active Start: 03-30-2024 Continuous Glu cose Sensor (Dexcom G7 Sensor) misc Indications: Type 2 diabetes mellitus with diabetic microalbuminuria, without long-term current use of insulin (CMS/HCC) 1 each continuously 3 each 11 03/30/2024 Active Start: 03-03-2024 End: 03-30-2024 Continuous Glucose Sensor (D excom G7 Sensor) [facility] Indications: Type 2 diabetes mellitus with diabetic microalbuminuria, without long-term current use of insulin ([facility]) 1 each continuously 3 each 11 03/03/2024 03/30/2024 Discontinued (Reorder) Start: 03-03-2024 Continuous Glu cose Sensor (Dexcom G7 Sensor) [facility] Indications: Type 2 diabetes mellitus with diabetic microalbuminuria, without long-term current use of insulin ([facility]) 1 each continuously 3 each 11 [...] tablet 1 07/04/2023 12/31/2023 Start: 08-07-2021 End: 10-25-2024 take 1 tablet by mouth in the morning diclofenac (Voltaren) 75 MG EC tablet Indications: Lumbar back pain Take 1 tablet (75 mg) by mouth in the morning and 1 tablet (75 mg) before bedtime. Do not crush, chew, or split. 180 tablet 1 07/27/2024 10/25/2024 Active Voltaren Active famotidine 20 mg oral tablet (20 sources) Histamine-2 Receptor Antagonist Start: 05-19-2024 End: 11-18-2024 take 1 tablet by mouth in the morning famotidine (Pepcid) 20 MG tablet Indications: Gastroesophageal reflux disease without esophagitis Take 1 tablet (20 mg) by mouth in the morning and 1 tablet (20 mg) before bedtime. 180 tablet 1 08/20/2024 11/18/2024 Active Start: 03-16-2024 End: 08-17-2024 take 1 [...] and replace cap. 16 g 2 03/03/2024 08/20/2024 Discontinued (Therapy completed) glimepiride 1 mg oral tablet (10 sources) [...] MG PO Daily January 12, 2017 1:00am methocarbamol 750 mg oral tablet (3 sources) [...] mg) before bedtime. 90 capsule 2 06/23/2024 Active Start: 03-21-2023 End: 06-19-2023 take 1 [...] a day Active take 1 capsule by [facility] twice daily pregabalin (LYRICA) 50 [...] sources) Serotonin-1b and Serotonin-1d Receptor Agonist Start: take 1 tablet by mouth every two [...] tablet (20 sources) HMG-CoA Reductase Inhibitor Start: End: 5 take 1 tablet by mouth [...] (Ozempic, 2 MG/DOSE,) 8 MG/3ML solution pen-injector (20 sources) Start: 05-19-2024 Semaglutide, 2 MG/DOSE, (Ozempic, 2 MG/DOSE,) 8 MG/3ML solution pen-injector Indications: Type 2 diabetes mellitus with diabetic microalbuminuria, without long-term current use of insulin (HCC) Inject 2 mg under the skin every 7 (seven) days 9 mL 1 05/19/2024 Active Start: 05-19-2024 End: 08-11-2024 Semaglutide, 2 MG/DOSE, (Oze mpic, 2 MG/DOSE,) 8 MG/3ML solution pen-injector Indications: Type 2 diabetes mellitus with diabetic microalbuminuria, without long-term current use of insulin (HCC) Inject 2 mg under the skin every 7 (seven) days 9 mL 1 05/19/2024 08/11/2024 Active Start: 05-19-2024 End: 08-11-2024 Semaglutide, 2 MG/DOSE, (Oze mpic, 2 MG/DOSE,) 8 MG/3ML solution pen-injector Indications: Type 2 diabetes mellitus with diabetic microalbuminuria, without long-term current use of insulin ([facility]) Inject 2 mg under the skin every 7 (seven) days 9 mL 1 05/19/2024 08/11/2024 Active traZODone hydrochloride 50 mg oral tablet (1 source) Serotonin Reuptake Inhibitor Start: 08-17-2021 take 1 tablet by mouth once daily at bedtime traZODone (DESYREL) 50 MG tablet TAKE 1 TABLET BY MOUTH EVERY NIGHT AT BEDTIME 0 08/17/2021 Active Vitamin C 500 MG (2 sources) Vitamin C 500 MG Orally Active Completed/Discontinued Medications Medication Drug Class(es) Dates Sig (Normalized) Sig (Original) ascorbic acid 100 mg oral tablet (6 [...] one time Orally Once a day Active furosemide 20 mg oral tablet (20 sources) Loop Diuretic Start: 08-05-2023 End: 11-18-2024 furosemide (Lasix) 20 MG tablet Indications: Bilateral lower extremity edema Take 1 tablet (20 mg) by mouth if needed (swelling in legs) Take 20 mg by mouth if needed 30 tablet 1 08/20/2024 08/20/2024 Discontinued indomethacin 50 mg oral capsule (2 sources) [...] 12, 2017 1:00am January 15, 2017 2:23pm metFORMIN hydrochloride 500 mg oral tablet (20 sources) Biguanide Start: 08-07-2021 metFORMIN (GLUCOPHAGE) 500 MG tablet 1,000 mg in the morning and 1,000 mg in the evening. Take with meals. 0 08/07/2021 Active Start: 01-12-2017 End: 11-29-2024 take 1 tablet by mouth in the morning metFORMIN (Glucophage) 500 MG tablet Indications: Type 2 diabetes mellitus with diabetic microalbuminuria, without long-term current use of insulin (HCC) Take 1 tablet (500 mg) by mouth in the morning and 1 tablet (500 mg) in the evening. Take with meals. 180 tablet 1 07/22/2024 08/31/2024 Discontinued (Reorder) take 1 tablet by alonso th at mealtime, then take 1 tablet by mouth every twenty-four hours metFORMIN, OSM, (Fortamet) 1000 MG 24 hr tablet Take 1,000 mg by mouth in the evening. Take with meals Do not crush, chew, or split. 0 Active Wnadmhcmzrjq-Kv-Ypev-Mineral s (Multiple Vitamin, Womens) Tablet (2 sources) Start: 01-12-2017 End: 01-15-2017 Rzdocuhvrrjc-Jm-Bxgs-Mineral s (Multiple Vitamin, Womens) Tablet Discontinued PO Daily [...] mg Start: 01-23-2023 Kenalog-40 Jan, 30 mg divalproex sodium 500 mg delayed release oral tablet (20 sources) Mood Stabilizer, Anti-epileptic Agent Start: 07-04-2023 End: 02-27-2025 take 1 tablet by mouth in the morning divalproex (Depakote) 500 MG EC tablet Indications: Migraine with aura and without status migrainosus, not intractable Take 1 tablet (500 mg) by mouth in the morning and 1 tablet (500 mg) before bedtime. Do not crush, chew, or split.. 180 tablet 1 03/03/2024 08/31/2024 Discontinued (Reorder) Start: 01-12-2017 take 1 tablet by alonso th twice daily Divalproex (Depakote Er) 500 mg Tablet Extended Release 24 Hr Active 500 MG PO Twice daily January 12, 2017 1:00am take 1 tablet by alonso th every twelve hours Depakote 500 mg 1 tablet Orally twice a day Active Problems Active Problems Problem Classification Problem [...] hyperlipidemia] Onset: 05-02-2023 05-02-2023 Chronic Esophageal disorders (5 sources) Gastroesophageal reflux disease without esophagitis; Translations: [...] Primary insomnia; Translations: [Primary insomnia] 12-31-2023 Chronic Nutritional deficiencies (2 sources) Vitamin D deficiency; Translations: [Vitamin D deficiency, unspecified] 07-29-2024 Chronic Osteoarthritis (10 sources) Bilateral primary osteoarthritis of knee; Translations: [Arthritis of first carpometacarpal joint of left hand] Onset: 03-08-2022 Chronic Osteoporosis (2 sources) Osteoporosis; Translations: [Age-related osteoporosis without current pathological fracture] 03-09-2024 Chronic Other congenital anomalies (2 sources) Non-neoplastic nevus; Translations: [Congenital non-neoplastic nevus] 03-30-2024 Chronic Other connective tissue disease (2 sources) Pain in left hand Episodic Other connective tissue disease (1 source) Personal history of other diseases of the musculoskeletal system and connective tissue Episodic Other endocrine disorders (1 source) Hormone level - finding 07-14-2024 Episodic Other hereditary and degenerative nervous system [...] metabolic disorders (20 sources) Body mass index 30+ - obesity; Translations: [Body mass index (BMI) 39.0-39.9, adult] Onset: 05-19-2024 05-19-2024 Chronic Other screening for suspected conditions (not mental disorders or infectious disease) (20 sources) Patient encounter status; Translations: [Encounter for screening for malignant neoplasm of cervix] Onset: 01-29-2023 Episodic Other skin disorders (2 sources) Lentiginosis; Translations: [Other melanin hyperpigmentation] 03-30-2024 Episodic Other skin disorders (2 sources) Hidradenitis suppurativa; Translations: [Hidradenitis suppurativa] 03-30-2024 Episodic Residual codes; unclassified (20 sources) Obstructive sleep apnea syndrome; Translations: [Obstructive sleep apnea (adult) (pediatric)] Onset: 03-30-2024 12-31-2023 Chronic Residual codes; unclassified (4 sources) Hypersomnia; Translations: [Hypersomnia, unspecified] 12-31-2023 Chronic Residual codes; unclassified (20 sources) Bilateral lower limb edema; Translations: [Localized edema] Onset: 08-05-2023 08-05-2023 Episodic Residual codes; unclassified (4 sources) Tobacco user; Translations: [Tobacco use] 12-31-2023 Episodic Spondylosis; intervertebral disc disorders; other back problems (11 sources) Spondylosis without myelopathy or radiculopathy, lumbar region; Translations: [Spondylosis without myelopathy or radiculopathy, lumbosacral region] Onset: 07-19-2021 Chronic Substance-related disorders (20 sources) Tobacco dependence caused by cigarettes; Translations: [...] conditions other than malignant neoplasm] Onset: 07-04-2023 Resolved: 08-20-2024 07-04-2023 Episodic Other and unspecified benign neoplasm [...] IN LEFT KNEE] Onset: 02-16-2022 Episodic Other non-traumatic joint disorders (20 sources) Pain in right knee; Translations: [Pain in joint, lower leg] Onset: 05-19-2024 05-19-2024 Episodic Other nutritional; endocrine; and metabolic disorders (20 sources) Hyperuricemia; Translations: [Hyperuricemia without signs of inflammatory arthritis and tophaceous disease] Onset: 05-19-2024 Resolved: 08-20-2024 05-19-2024 Episodic Other upper respiratory infections (20 sources) Acute upper respiratory infection; Translations: [Acute upper respiratory infection, unspecified] Onset: 01-29-2023 Resolved: 08-20-2024 01-29-2023 Episodic Spondylosis; intervertebral disc disorders; other back problems (20 sources) Muscle spasm of back; Translations: [Sacrococcygeal disorders, not elsewhere classified] Onset: 07-05-2021 07-04-2023 Episodic Unclassified (1 source) LOW BACK PAIN, UNSPECIFIED; Translations: [LOW BACK PAIN, UNSPECIFIED] Onset: 06-20-2021 Unclassified (2 sources) Acute pain of right knee 05-19-2024 Results Test Name Value Interpretation Reference Range Facility HbA1c (Bld) [Mass fraction]o n 08-20-2024 Interpretation and review of laboratory results Abnormal [facility] - Hematology and Cell countson 08-20-2024 HbA1c (Bld) [Mass fraction] 6.4 % [facility] ALL BASIC METABOLIC PANELon 07-09-2024 Anion gap [Moles/Vol] 11.6 mmol/L [facility] Calcium [Mass/Vol] 9.3 mg/dL 8.5 - 10. 1 mg/dL [facility] Chloride [Moles/Vol] 103 mmol/L 98 - 10 7 mmol/L [facility] CO2 [Moles/Vol] 33 mmol/L High 21.0 - 32.0 mmol/L [facility] Creatinine [Mass/Vol] 0.86 mg/dL 0.55 - 1.02 mg/dL [facility] GFR/1.73 sq M.predicted CKD-EPI (S/P/Bld) [Vol rate/Area] >60 >=60 mL/min/1.73m 2 [facility] Glucose [Mass/Vol] 107 mg/dL High 74 - 106 mg/dL [facility] Interpretation and review of laboratory results Abnormal [facility] Potassium [Moles/Vol] 4.6 mmol/L 3.5 - 5.1 mmol/L [facility] Sodium [Moles/Vol] 143 mmol/L 136 - 145 mmol/L [facility] TBH EGFR-NON AF BENINESE >60 >=60 mL/min/1.73m 2 [facility] Urea nitrogen [Mass/Vol] 20 mg/dL High 7.0 - 18.0 mg/dL [facility] Urea nitrogen/Creatinine [Mass ratio] 23.3 mg/mg [facility] X-ray reportOrdered By: Anton Penny on 05-28-2024 Study report [facility] [address] [place] [address] XRay Report Signed Patient: Karina De Oliveira MR#: [id number] : 1965 Acct:[id number] Age/Sex: 58 / F ADM Date: 5 [place] [facility] [place]: Type: [facility] Attending Dr: Lui Banks II, MD Copies to: Lui Banks MD~ Ordering Provider: Lui Banks MD Date of Service: 05/28/24 XR/XR knee RT 4V*: M25.561 - Pain in right knee ([id number]) XR/XR pelvis 1-2V: M25.561 - Pain in [...] OF THE RIGHT KNEE. Impression dictated by: Amor Garcia Jr.OPasquale05/28/2024 3:24 PM Dictation Location: RADIO-PC-22 Transcribed By: LILLY 05/28/24 1524 Dictated By: Moustapha Penny Jr, DO 05/28/24 1523 Signed By: 05/28/24 1524 [facility] XR knee RT 4V*on 05-28-2024 XR knee RT 4V* [facility] [address] [employer] [address] XRay Report Signed Patient: Karina De Oliveira MR#: [id number] : 1965 Acct:[id number] Age/Sex: 58 / F ADM Date: 05/28/24 [place] [facility] [place]: Type: [facility] Attending Dr: Lui Banks II, MD Copies to: Lui Banks MD Ordering Provider: Lui Banks MD Date of Service: 05/28/24 XR/XR knee RT 4V*: M25.561 - Pain in right knee ([id number]) XR/XR pelvis 1-2V: M25.561 - Pain in [...] OF THE RIGHT KNEE. Impression dictated by: Amor Garcia Jr.OPasquale05/28/2024 3:24 PM Dictation Location: RADIO-PC-22 Transcribed By: LILLY 05/28/24 1524 Dictated By: Moustapha Penny Jr, DO 05/28/24 1523 Signed By: 05/28/24 1524 Normal [facility] ALL CBC WITH AUTO DIFFon BASOPHILS ABSOLUTE AUTO 0.1 [facility] Basophils/100 WBC (Bld) 0.5 % 0.2 - 2.0 % [facility] Eosinophils/100 WBC (Bld) 4 % 0.9 - 7.0 % [facility] Erythrocyte distribution width (RBC) [Ratio] 14.6 % 11.0 - 15.0 % [facility] Hematocrit (Bld) [Volume fraction] 41.6 % 36.0 - 48.0 % [facility] Hemoglobin (Bld) [Mass/Vol] 14.1 g/dL 12.0 - 16.0 g/dL [facility] IMMATURE GRANULOCYTES ABS AUTO 0.07 High [facility] Immature granulocytes/100 WBC (Bld) 0.6 % High 0.0 - 0.5 % [facility] Interpretation and review of laboratory results Abnormal [facility] LYMPHOCYTES ABSOLUTE AUTO 3.6 [facility] Lymphocytes/100 WBC (Bld) 32.6 % 20.5 - 60.0 % [facility] MCH (RBC) [Entitic mass] 32.3 pg 26.7 - 34.0 pg [facility] MCHC (RBC) [Mass/Vol] 33.9 g/dL 29.9 - 35.2 g/dL [facility] MCV (RBC) [Entitic vol] 95.2 fL 81.0 - 99.0 fL [facility] MONOCYTES ABSOLUTE AUTO 0.8 [facility] Monocytes/100 WBC (Bld) 6.9 % 1.7 - 12.0 % [facility] NEUTROPHILS ABSOLUTE AUTO 6.2 [facility] Neutrophils/100 WBC (Bld) 55.4 % 43.0 - 75.0 % [facility] Platelet mean volume (Bld) [Entitic vol] 10.7 fL 9.5 - 13.5 fL [facility] TBH EO # 0.4 [facility] TBH PLT 193 [facility] TBH RBC 4.37 [facility] TBH WBC 11.1 High [facility] XR Knee - right 3 View[facility] [place] [id number] XRay Report Signed Patient: KARINA DE OLIVEIRA MR#: [id number] : 1965 Acct:[id number] Age/Sex: 58 / F ADM Date: 05/21/24 Loc: LAB Attending Dr: Ameena Vera NP Ordering Physician: Ameena Vera NP Date of Service: 05/21/24 Procedure(s): XR knee RT 3V Accession Number(s): [id number] cc: Ameena Vera NP [facility] [place] [address] Patient Name: KARINA DE OLIVEIRA MRN: [facility]:[id number] date: 1965 Sex: F Assigned Patient Location: LAB Current Patient Location: LAB Accession/Order Number: [id number] Exam Date: 05/21/2024 13:21 Report Date: 05/21/2024 [...] Penny Jr., D.O.05/21/2024 1:21 PM Dictation Location: [place] [address] Electronically authenticated by: [id number] Y Date: 05/21/2024 13:21 Dictated By: Moustapha Penny M.D. Signed By: 05/21/24 1324 DD/ 1321 TD/TT: Bicycle Technician: [facility] Radiology, Radiologist, MD - 05/21/2024 [place] [address] XRay Report Signed Patient: KARINA DE OLIVEIRA MR#: [id number] : 1965 Acct:[id number] Age/Sex: 58 / F ADM Date: 05/21/24 Loc: LAB Attending Dr: Ameena Vera NP Ordering Physician: Ameena Vera NP Date of Service: 05/21/24 Procedure(s): XR knee RT 3V Accession Number(s): [id number] cc: Ameena Vera NP [place] [address] Patient Name: KARINA DE OLIVEIRA MRN: [facility]:[id number] date: 1965 Sex: F Assigned Patient Location: LAB Current Patient Location: LAB Accession/Order Number: [id number] Exam Date: 05/21/2024 13:21 Report Date: 05/21/2024 [...] Penny Jr., D.O.05/21/2024 1:21 PM Dictation Location: [place] [address] Electronically authenticated by: [id number] Y Date: 05/21/2024 13:21 Dictated By: Moustapha Penny M.D. Signed By: 05/21/24 1324 DD/ 1321 TD/TT: Bicycle Technician: [facility] Radiology Study observation (narrative) [facility] XR Knee - right 3 ViewsOrder ed By: Radiologist Radiology on 05-21-2024 [facility] Work Phone: HbA1c (Bld) [Mass fraction]o n 05-19-2024 Interpretation and review of laboratory results Abnormal [facility] - Hematology and Cell countson 05-19-2024 HbA1c (Bld) [Mass fraction] 6.70 % [facility] HbA1c (Bld) [Mass fraction]o n 03-30-2024 Interpretation and review of laboratory results Abnormal [facility] - Hematology and Cell countson 03-30-2024 HbA1c (Bld) [Mass fraction] 6.9 % [facility] MM TOMOSYNTHESIS SCREENING B Ion 03-18-2024 [place] [address] Mammography Report Signed Patient: KARINA DE OLIVEIRA MR#: [id number] : 1965 Acct:[id number] Age/Sex: 58 / F ADM Date: 03/18/24 Loc: MAMMO Attending Dr: RADHA BARCLAY Ordering Physician: RADHA BARCLAY Results: Date of Service: 03/18/24 Follow Up: Procedure(s): MM tomosynthesis screening BI Accession Number(s): [id number] cc: LOCO DRAKE SUSAN Patient Name: KARINA DE OLIVEIRA MR#: [id number] : 1965 Exam Date: 03/18/2024 Ordering Doctor: DR RADHA BARCLAY [facility] RADIOLOGY REPORT PROCEDURE: MM TOMOSYNTHESIS SCREENING BI [...] skin cancer at age 69. LOCATION: [facility] BREAST COMPOSITION: There are scattered areas of [...] LUMP SHOULD BE BIOPSIED. Dictated by: Pattie Salter M.D. on 03/18/2024 at 14:50 Approved by: Pattie Salter M.D. on 03/18/2024 at 14:53 Dictated By: Pattie Salter M.D. Signed By: 03/18/24 1454 DD/ 53 TD/TT: Bicycle Technician: [facility] Radiology, Radiologist, MD - 03/18/2024 [place] [address] Mammography Report Signed Patient: KARINA DE OLIVEIRA MR#: [id number] : 1965 Acct:[id number] Age/Sex: 58 / F ADM Date: 03/18/24 Loc: MAMMO Attending Dr: RADHA BARCLAY Ordering Physician: RADHA BARCLAY Results: Date of Service: 03/18/24 Follow Up: Procedure(s): MM tomosynthesis screening BI Accession Number(s): [id number] cc: LOCO DRAKE SUSAN Patient Name: KARINA DE OLIVEIRA MR#: [id number] : 1965 Exam Date: 03/18/2024 Ordering Doctor: DR RADHA BARCLAY [facility] RADIOLOGY REPORT PROCEDURE: MM TOMOSYNTHESIS SCREENING BI [...] skin cancer at age 69. LOCATION: [facility] BREAST COMPOSITION: There are scattered areas of [...] LUMP SHOULD BE BIOPSIED. Dictated by: Pattie Salter M.D. on 03/18/2024 at 14:50 Approved by: Pattie Salter M.D. on 03/18/2024 at 14:53 Dictated By: Pattie Salter M.D. Signed By: 03/18/244 DD/ 53 TD/TT: Bicycle Technician: [facility] Radiology Study observation (narrative) [facility] MM TOMOSYNTHESIS SCREENING B IOrdered By: Radiologist Radiology on 03-18-2024 [facility] Work Phone: ALL CBC WITH AUTO DIFFon BASOPHILS ABSOLUTE AUTO 0.1 [facility] Basophils/100 WBC (Bld) 0.4 % 0.2 - 2.0 % [facility] Eosinophils/100 WBC (Bld) 3.2 % 0.9 - 7.0 % [facility] Erythrocyte distribution width (RBC) [Ratio] 15.6 % High 11.0 - 15.0 % [facility] Hematocrit (Bld) [Volume fraction] 42.4 % 36.0 - 48.0 % [facility] Hemoglobin (Bld) [Mass/Vol] 13.9 g/dL 12.0 - 16.0 g/dL [facility] IMMATURE GRANULOCYTES ABS AUTO 0.09 High [facility] Immature granulocytes/100 WBC (Bld) 0.7 % High 0.0 - 0.5 % [facility] Interpretation and review of laboratory results Abnormal [facility] LYMPHOCYTES ABSOLUTE AUTO 3.5 [facility] Lymphocytes/100 WBC (Bld) 27.7 % 20.5 - 60.0 % [facility] MCH (RBC) [Entitic mass] 31.4 pg 26.7 - 34.0 pg [facility] MCHC (RBC) [Mass/Vol] 32.8 g/dL 29.9 - 35.2 g/dL [facility] MCV (RBC) [Entitic vol] 95.7 fL 81.0 - 99.0 fL [facility] MONOCYTES ABSOLUTE AUTO 0.9 High [facility] Monocytes/100 WBC (Bld) 7.4 % 1.7 - 12.0 % [facility] NEUTROPHILS ABSOLUTE AUTO 7.7 High [facility] Neutrophils/100 WBC (Bld) 60.6 % 43.0 - 75.0 % [facility] Platelet mean volume (Bld) [Entitic vol] 10.9 fL 9.5 - 13.5 [facility]L [facility]4 [facility] TBH PLT 219 [facility] RBC 4.43 [facility] WBC 12.8 High [facility] XR LSPINE 2_3 VIEWSon 2022 XR [...] PATTIE SALTER Date: 2022-06-07 11:15 Normal [facility] CBC AUTO DIFFon 04-12-2022 BASO # 0.1 103/ul Normal 0.0-0.1 [facility] Comment on above: Performed By: #### C BC ####[facility] [address] [place] [address]Dr. Ricky Valenzuela Basophils/100 WBC (Bld) 0.5 % Normal 0.2-2.0 [facility] Comment on above: Performed By: #### C BC ####[facility] [address] [place] [id number]. Ricky Valenzuela EO # 0.3 103/ul Normal 0.0-0.7 [facility] Comment on above: Performed By: #### C BC ####[facility] [address]ctjvmxh[address] [place] [id number]. Ricky Valenzuela Eosinophils/100 WBC (Bld) 3.0 % Normal 0.9-7.0 [facility] Comment on above: Performed By: #### C BC ####[facility] [address] [place] [address]Dr. Ricky Valenzuela Erythrocyte distribution width (RBC) [Ratio] 14.8 % Normal 11.0-15.0 [facility] Comment on above: Performed By: #### C BC ####[facility] [address] [place], [place] [address]Dr. Ricky Valenzuela Hematocrit (Bld) [Volume fraction] 40.6 % Normal 36.0-48.0 [facility] Comment on above: Performed By: #### C BC ####[facility] [address] [place], [place] [address]Dr. Ricky Valenzuela Hemoglobin (Bld) [Mass/Vol] 13.5 g/dL Normal 12.0-16.0 [facility] Comment on above: Performed By: #### C BC ####[facility] [address] [place], [place] [address]Dr. Ricky Valenzuela IG # 0.16 10e3/ul Critically high 0.00-0.03 [facility] Comment on above: Performed By: #### C BC ####[facility] [address] [place], [place] [address]Dr. Ricky Valenzuela IG % 1.4 % Critically high 0.0-0.5 [facility] Comment on above: Performed By: #### C BC ####[facility] [address] [place], [place] [address]Dr. Ricky Valenzuela LYMPH # 3.4 103/ul Normal 1.2-3.8 [facility] Comment on above: Performed By: #### C BC ####[facility] [address] [place], [place] [address]Dr. Ricky Valenzuela Lymphocytes/100 WBC (Bld) 30.4 % Normal 20.5-60.0 [facility] Comment on above: Performed By: #### C BC ####[facility] [address] [place] [id number]. Ricky Valenzuela MANUAL DIFF REQ NO Normal [facility] Comment on above: Performed By: #### C BC ####[facility] [address] [place] [id number]. Ricky Valenzuela MCH (RBC) [Entitic mass] 31.8 pg Normal 26.7-34.0 [facility] Comment on above: Performed By: #### C BC ####[facility] [address]ts[address] [place] [address]Dr. Ricky Valenzuela MCHC (RBC) [Mass/Vol] 33.3 g/dL Normal 29.9-35.2 [facility] Comment on above: Performed By: #### C BC ####[facility] [address] [place], [place] [address]Dr. Ricky Valenzuela MCV (RBC) [Entitic vol] 95.5 fL Normal 81.0-99.0 [facility] Comment on above: Performed By: #### C BC ####[facility] [address] [place], [place] [address]Dr. Ricky Valenzuela MONO # 0.9 103/ul Critically high 0.3-0.8 [facility] Comment on above: Performed By: #### C BC ####[facility] Upcyirix[address] [place], [place] [address]Dr. Ricky Valenzuela Monocytes/100 WBC (Bld) 7.7 % Normal 1.7-12.0 [facility] Comment on above: Performed By: #### C BC ####[facility] [address] [place], [place] [address]Dr. Ricky Valenzuela NEUT # 6.3 103/ul Normal 1.4-6.5 [facility] Comment on above: Performed By: #### C BC ####[facility] Ed[address]om[address] [place], [place] [address]Dr. Ricky Valenzuela Neutrophils/100 WBC (Bld) 57.0 % Normal 43.0-75.0 [facility] Comment on above: Performed By: #### C BC ####[facility] [address] [place] [id number]. Ricky Valenzuela Platelet mean volume (Bld) [Entitic vol] 9.8 fL Normal 9.5-13.5 [facility] Comment on above: Performed By: #### C BC ####[facility] [address] [place] [id number]. Ricky Valenzuela PLT 246 103/ul Normal 150-450 [facility] Comment on above: Performed By: #### C BC ####[facility] [address] [place] [address]Dr. Ricky Valenzuela RBC 4.25 106/ul Normal 4.20-5.40 [facility] Comment on above: Performed By: #### C BC ####[facility] [address] [place] [address]Dr. Ricky Valenzuela WBC 11.1 103/ul Critically high 4.0-11.0 [facility] Comment on above: Performed By: #### C BC ####[facility] [address] [place] [address]Dr. Ricky Valenzuela GLYCOHEMOGLOBIN A1Con 2022 ADA RECOMMENDATION SEE BELOW Normal [facility] Comment on above: Result Comment: ADA RECOMMENDED LIMIT 4.0 - 6.0 ADA THERAPEUTIC TARGET < 7.0 ACTION SUGGESTED > 7.0 Performed By: #### A 1C ####[facility] [address] [place], [place] [address]Dr. Ricky Valenzuela Glucose [Mass/Vol] 160 mg/dL Normal [facility] Comment on above: Performed By: #### A 1C ####[facility] [address] [place] [id number]. Ricky Valenzuela HbA1c (Bld) [Mass fraction] 7.2 % Critically high 4.5-6.2 [facility] Comment on above: Performed By: #### A 1C ####[facility] [address] [place] [address]DrPasquale Ricky Nicolas MICROALBUMIN, RAND URon 03-0 mALB <1.3 Normal <=30.0 [facility] Comment on above: Performed By: #### M ALBR #### [facility] [address] [place] [address] Dr. Ricky Valenzuela PROF 14(COMP METB)on 023 Albumin [Mass/Vol] 3.3 g/dL Critically low 3.4-5.0 [facility] Comment on above: Performed By: #### C MP #### [facility] [address] [place] [address] Dr. Ricky Valenzuela Albumin/Globulin [Mass ratio] 0.9 {ratio} Normal [facility] Comment on above: Performed By: #### C MP #### [facility] [address] [place] [address] Dr. Ricky Valenzuela ALP [Catalytic activity/Vol] 90 U/L Normal 46-116 [facility] Comment on above: Performed By: #### C MP #### [facility] [address] [place] [address] Dr. Ricky Valenzuela ALT [Catalytic activity/Vol] 42 U/L Normal 14-59 [facility] Comment on above: Performed By: #### C MP #### [facility] [address] [place] [address] Dr. Ricky Valenzuela Anion gap [Moles/Vol] 10.1 mmol/L Normal [facility] Comment on above: Performed By: #### C MP #### [facility] [address] [place] [address] Dr. Ricky Valenzuela AST [Catalytic activity/Vol] 21 U/L Normal 15-37 [facility] Comment on above: Performed By: #### C MP #### [facility] [address] [place] [address] Dr. Ricky Valenzuela Bilirubin [Mass/Vol] 0.3 mg/dL Normal 0.2-1.0 [facility] Comment on above: Performed By: #### C MP #### [facility] [address] [place] [address] Dr. Ricky Valenzuela Calcium [Mass/Vol] 9.8 mg/dL Normal 8.5-10.1 [facility] Comment on above: Performed By: #### C MP #### [facility] [address] [place] [address] Dr. Ricky Valenzuela Chloride [Moles/Vol] 99 mmol/L Normal 98-107 [facility] Comment on above: Performed By: #### C MP #### [facility] [address] [place] [address] Dr. Ricky Valenzuela CO2 [Moles/Vol] 33.7 mmol/L Critically high 21.0-32.0 [facility] Comment on above: Performed By: #### C MP #### [facility] [address] [place] [address] Dr. Ricky Valenzuela Creatinine [Mass/Vol] 0.94 mg/dL Normal 0.55-1.02 [facility] Comment on above: Performed By: #### C MP #### [facility] [address] [place] [address] Dr. Ricky Valenzuela EGFR-AF BENINESE >60 Normal >=60 [facility] Comment on above: Performed By: #### C MP #### [facility] [address] [place] [address] Dr. Ricky Valenzuela EGFR-NON AF BENINESE >60 Normal >=60 [facility] Comment on above: Performed By: #### C MP #### [facility] [address] [place] [address] Dr. Ricky Valenzuela Globulin (S) [Mass/Vol] 3.8 g/dL Normal [facility] Comment on above: Performed By: #### C MP #### [facility] [address] [place] [address] Dr. Ricky Valenzuela Glucose [Mass/Vol] 168 mg/dL Critically high 74-106 [facility] Comment on above: Performed By: #### C MP #### [facility] [address] [place] [address] Dr. Ricky Valenzuela Potassium [Moles/Vol] 4.8 mmol/L Normal 3.5-5.1 [facility] Comment on above: Performed By: #### C MP #### [facility] [address] [place], [place] [address] Dr. Ricky Valenzuela Protein [Mass/Vol] 7.1 g/dL Normal 6.4-8.2 [facility] Comment on above: Performed By: #### C MP #### [facility] [address] [place], [place] [address] Dr. Ricky Valenzuela Sodium [Moles/Vol] 138 mmol/L Normal 136-145 [facility] Comment on above: Performed By: #### C MP #### [facility] [address] [place], [place] [address] Dr. Ricky Valenzuela Urea nitrogen [Mass/Vol] 22.0 mg/dL Critically high 7.0-18.0 [facility] Comment on above: Performed By: #### C MP #### [facility] [address] [place], [place] [address] Dr. Ricky Valenzuela Urea nitrogen/Creatinine [Mass ratio] 23.4 mg/mg Normal [facility] Comment on above: Performed By: #### C MP #### [facility] [address] [place], [place] [address] Dr. Ricky Valenzuela Cytologyon 08-30-2021 Cytology (NOTE) INTERPRETATION Vaginal material, (ThinPrep vial, Imaging-assisted review): Specimen Adequacy: Satisfactory for evaluation. Descriptive Diagnosis: Negative for intraepithelial lesion or malignancy. Lead Installer: CLARK Delacruz(ASCP) Electronically Signed Out zackary/09/07/2021 Source: A: Vaginal material, (ThinPrep vial, Imaging-assisted review) Clinical History Hysterectomy Surgery: Salpingostomy; Ovary removal Z12.4 Encounter for screening for malignant neoplasm of cervix GYNECOLOGIC CYTOLOGY REPORT Patient Name: KARINA DE OLIVEIRA [facility] Rec: [id number] Path Number: [id number] [employer] CONSULTING PATHOLOGISTS [facility] ANATOMIC PATHOLOGY [address] [id number] Normal [facility] Comment on above: Performed By: #### P PPVP #### [employer] [address] [place] [address] Blood Bank Laboratory Technologist: Luca Cummins MD CBC AUTO DIFFon 08-09-2021 BASO # 0.1 103/ul Normal 0.0-0.1 [facility] Comment on above: Performed By: #### C BC #### [facility] [address] [place] [address] [address] Ricky Valenzuela Basophils/100 WBC (Bld) 0.8 % Normal 0.2-2.0 [facility] Comment on above: Performed By: #### C BC #### [facility] [address] [place] [address] [address] Ricky Valenzuela EO # 0.2 103/ul Normal 0.0-0.7 [facility] Comment on above: Performed By: #### C BC #### [facility] [address] [place] [address] Dr. Ricky Valenzuela Eosinophils/100 WBC (Bld) 2.1 % Normal 0.9-7.0 [facility] Comment on above: Performed By: #### C BC #### [facility] [address] [place] [address] Dr. Ricky Valenzuela Erythrocyte distribution width (RBC) [Ratio] 15.2 % Critically high 11.0-15.0 [facility] Comment on above: Performed By: #### C BC #### [facility] [address] [place] [address] Dr. Ricky Valenzuela Hematocrit (Bld) [Volume fraction] 41.5 % Normal 36.0-48.0 [facility] Comment on above: Performed By: #### C BC #### [facility] [address] [place] [address] [address] Ricky Valenzuela Hemoglobin (Bld) [Mass/Vol] 13.5 g/dL Normal 12.0-16.0 [facility] Comment on above: Performed By: #### C BC #### [facility] [address] [place] [address] Dr. Ricky Valenzuela IG # 0.42 10e3/ul Critically high 0.00-0.03 [facility] Comment on above: Performed By: #### C BC #### [facility] [address] [place] [address] Dr. Ricky Valenzuela IG % 3.8 % Critically high 0.0-0.5 [facility] Comment on above: Performed By: #### C BC #### [facility] [address] [place] [address] Dr. Ricky Valenzuela LYMPH # 3.3 103/ul Normal 1.2-3.8 [facility] Comment on above: Performed By: #### C BC #### [facility] [address] [place] [address] Dr. Ricky Valenzuela Lymphocytes/100 WBC (Bld) 29.1 % Normal 20.5-60.0 [facility] Comment on above: Performed By: #### C BC #### [facility] [address] [place] [address] Dr. Ricky Valenzuela MANUAL DIFF REQ NO Normal [facility] Comment on above: Performed By: #### C BC #### [facility] [address] [place] [address] Dr. Ricky Valenzuela MCH (RBC) [Entitic mass] 32.4 pg Normal 26.7-34.0 [facility] Comment on above: Performed By: #### C BC #### [facility] [address] [place] [address] Dr. Ricky Valenzuela MCHC (RBC) [Mass/Vol] 32.5 g/dL Normal 29.9-35.2 [facility] Comment on above: Performed By: #### C BC #### [facility] [address] [place] [address] Dr. Ricky Valenzuela MCV (RBC) [Entitic vol] 99.5 fL Critically high 81.0-99.0 [facility] Comment on above: Performed By: #### C BC #### [facility] [address] [place] [address] Dr. Ricky Valenzuela MONO # 0.8 103/ul Normal 0.3-0.8 [facility] Comment on above: Performed By: #### C BC #### [facility] [address] [place] [address] Dr. Ricky Valenzuela Monocytes/100 WBC (Bld) 7.5 % Normal 1.7-12.0 [facility] Comment on above: Performed By: #### C BC #### [facility] [address] [place] [address] Dr. Ricky Valenzuela NEUT # 6.3 103/ul Normal 1.4-6.5 [facility] Comment on above: Performed By: #### C BC #### [facility] [address] [place] [address] Dr. Ricky Valenzuela Neutrophils/100 WBC (Bld) 56.7 % Normal 43.0-75.0 [facility] Comment on above: Performed By: #### C BC #### [facility] [address] [place] [address] Dr. Ricky Valenzuela Platelet mean volume (Bld) [Entitic vol] 9.8 fL Normal 9.5-13.5 [facility] Comment on above: Performed By: #### C BC #### [facility] [address] [place] [address] Dr. Ricky Valenzuela PLT 265 103/ul Normal 150-450 [facility] Comment on above: Performed By: #### C BC #### [facility] [address] [place] [address] Dr. Ricky Valenzuela RBC 4.17 106/ul Critically low 4.20-5.40 [facility] Comment on above: Performed By: #### C BC #### [facility] [address] [place] [address] Dr. Ricky Valenzuela WBC 11.2 103/ul Critically high 4.0-11.0 [facility] Comment on above: Performed By: #### C BC #### [facility] [address] [place] [address] Dr. Ricky Valenzuela GLYCOHEMOGLOBIN A1Con 2021 ADA RECOMMENDATION SEE BELOW Normal [facility] Comment on above: Result Comment: ADA RECOMMENDED LIMIT 4.0 - 6.0 ADA THERAPEUTIC TARGET < 7.0 ACTION SUGGESTED > 7.0 Performed By: #### A 1C ####[facility] [address] [place], [place] [address]QyDr. Ricky Valenzuela Glucose [Mass/Vol] 183 mg/dL Normal [facility] Comment on above: Performed By: #### A 1C ####[facility] [address] [place], [place] [address]QcDr. Ricky Valenzuela HbA1c (Bld) [Mass fraction] 8.0 % Critically high 4.5-6.2 [facility] Comment on above: Performed By: #### A 1C ####[facility] [address] [place], [place] [address]PiDr. Ricky Valenzuela LIPID PROFILEon 08-09-2021 CHOL-HDL RATIO NORM SEE BELOW Normal [facility] Comment on above: Result Comment: 3.3 - 4.4 LOW RISK 4.4 - 7.1 AVERAGE RISK 7.1 - 11.0 MODERATE RISK >11.0 HIGH RISK Performed By: #### C MP, LIPID #### [facility] [address] [place] [address] [address] Ricky Valenzuela Cholesterol [Mass/Vol] 239 mg/dL Critically high <=200 [facility] Comment on above: Performed By: #### C MP, LIPID #### [facility] [address] [place] [address] [address] Ricky Valenzuela Cholesterol in HDL [Mass/Vol] 36 mg/dL Critically low 40-60 [facility] Comment on above: Performed By: #### C MP, LIPID #### [facility] [address] [place] [address] [address] Ricky Valenzuela Cholesterol in LDL [Mass/Vol] 164.2 mg/dL Normal [facility] Comment on above: Performed By: #### C MP, LIPID #### [facility] [address] [place] [address] [address] Ricky Valenzuela Cholesterol.total/Ch olesterol in HDL [Mass ratio] 6.6 {ratio} Normal [facility] Comment on above: Performed By: #### C MP, LIPID #### [facility] [address] [place] [address] [address] Ricky Valenzuela HDL NORMAL > or = 60 mg/dl - LO W CARDIOVASCULAR RISK <40 mg/dl - HIGH CARDIOVASCULAR RISK Normal [facility] Comment on above: Performed By: #### C MP, LIPID #### [facility] [address] [place] [address] [address] Ricky Valenzuela LDL CALC NORMAL SEE BELOW Normal [facility] Comment on above: Result Comment: <100 mg/dl OPTIMAL 100 - 129 mg/dl NEAR OR ABOVE OPTIMAL 130 - 159 mg/dl BORDERLINE HIGH 160 - 189 mg/dl HIGH >190 mg/dl VERY HIGH Performed By: #### C MP, LIPID #### [facility] [address] [place] [address] [address] Ricky Valenzuela Triglyceride [Mass/Vol] 194 mg/dL Critically high <=150 [facility] Comment on above: Performed By: #### C MP, LIPID #### [facility] [address] [place] [address] [address] Ricky Valenzuela VLDL CALC 38.8 mg/dL Normal [facility] Comment on above: Performed By: #### C MP, LIPID #### [facility] [address] [place] [address] [address] Ricky Valenzuela MICROALBUMIN, RAND URon 07-13 mALB 13.1 mg/L Normal <=30.0 [facility] Comment on above: Performed By: #### M ALBR ####[facility] [address] [place], [place] [address]PzDr. Ricky Valenzuela PROF 14(COMP METB)on 022 Albumin [Mass/Vol] 3.3 g/dL Critically low 3.4-5.0 [facility] Comment on above: Performed By: #### C MP, LIPID #### [facility] [address] [place] [address] [address] Ricky Valenzuela Albumin/Globulin [Mass ratio] 0.8 {ratio} Normal [facility] Comment on above: Performed By: #### C MP, LIPID #### [facility] [address] [place], [place] [address] Dr. Ricky Valenzuela ALP [Catalytic activity/Vol] 93 U/L Normal 46-116 [facility] Comment on above: Performed By: #### C MP, LIPID #### [facility] [address] [place] [address] [address] Ricky Valenzuela ALT [Catalytic activity/Vol] 37 U/L Normal 14-59 [facility] Comment on above: Performed By: #### C MP, LIPID #### [facility] [address] [place] [address] [address] Ricky Valenzuela Anion gap [Moles/Vol] 10.9 mmol/L Normal [facility] Comment on above: Performed By: #### C MP, LIPID #### [facility] [address] [place] [address] [address] Ricky Valenzuela AST [Catalytic activity/Vol] 10 U/L Critically low 15-37 [facility] Comment on above: Performed By: #### C MP, LIPID #### [facility] [address] [place] [address] [address] Ricky Valenzuela Bilirubin [Mass/Vol] 0.2 mg/dL Normal 0.2-1.0 [facility] Comment on above: Performed By: #### C MP, LIPID #### [facility] [address] [place] [address] [address] Ricky Valenzuela Calcium [Mass/Vol] 9.0 mg/dL Normal 8.5-10.1 [facility] Comment on above: Performed By: #### C MP, LIPID #### [facility] [address] [place] [address] [address] Ricky Valenzuela Chloride [Moles/Vol] 100 mmol/L Normal 98-107 [facility] Comment on above: Performed By: #### C MP, LIPID #### [facility] [address] [place] [address] [address] Ricky Valenzuela CO2 [Moles/Vol] 32.2 mmol/L Critically high 21.0-32.0 [facility] Comment on above: Performed By: #### C MP, LIPID #### [facility] [address] [place] [address] [address] Ricky Valenzuela Creatinine [Mass/Vol] 0.95 mg/dL Normal 0.55-1.02 [facility] Comment on above: Performed By: #### C MP, LIPID #### [facility] [address] [place] [address] [address] Ricky Valenzuela EGFR-AF BENINESE >60 Normal >=60 [facility] Comment on above: Performed By: #### C MP, LIPID #### [facility] [address] [place] [address] [address] Ricky Valenzuela EGFR-NON AF BENINESE >60 Normal >=60 [facility] Comment on above: Performed By: #### C MP, LIPID #### [facility] [address] [place] [address] [address] Ricky Valenzuela Globulin (S) [Mass/Vol] 4.2 g/dL Normal [facility] Comment on above: Performed By: #### C MP, LIPID #### [facility] [facility] [address] [address] [address] Ricky Valenzuela Glucose [Mass/Vol] 200 mg/dL Critically high 74-106 [facility] Comment on above: Performed By: #### C MP, LIPID #### [facility] [address] [address] [address] Ricky Valenzuela Potassium [Moles/Vol] 4.1 mmol/L Normal 3.5-5.1 [facility] Comment on above: Performed By: #### C MP, LIPID #### [facility] [address] [address] [address] Ricky Valenzuela Protein [Mass/Vol] 7.5 g/dL Normal 6.4-8.2 [facility] Comment on above: Performed By: #### C MP, LIPID #### [facility] [address] [address] [address] Ricky Valenzuela Sodium [Moles/Vol] 139 mmol/L Normal 136-145 [facility] Comment on above: Performed By: #### C MP, LIPID #### [facility] [address] [address] [address] Ricky Valenzuela Urea nitrogen [Mass/Vol] 13.0 mg/dL Normal 7.0-18.0 [facility] Comment on above: Performed By: #### C MP, LIPID #### [facility] [address] [place], [place] [address] Dr. Ricky Valenzuela Urea nitrogen/Creatinine [Mass ratio] 13.7 mg/mg Normal [facility] Comment on above: Performed By: #### C MP, LIPID #### [facility] [address] [place], [place] [address] Dr. Ricky Valenzuela POINT OF CARE GLUCOSEon 06-12 Glucose [Mass/Vol] 176 mg/dL Critically high 74-106 [facility] Comment on above: Performed By: #### P OCGLUC #### [facility] [address] [address] [address] Ricky Valenzuela Vital Signs Date Time Vital Sign Value Performing Clinician Facility 08-20-2024 11:10-0400 Diastolic blood pressure 58 mm[Hg] Ameena Vera [facility] Work Phone: [facility] 08-20-2024 11:10-0400 Systolic blood pressure 90 mm[Hg] Ameena Vera [facility]NAGER [facility] Work Phone: [facility] 08-20-2024 10:37-0400 Body mass index (BMI) [Ratio] 39.74 kg/m2 Ameena Vera [facility]NAGER [facility] Work Phone: [facility] 08-20-2024 10:37-0400 Body temperature 98.49 [degF] Ameena Vera MANAGER [facility] Work Phone: [facility] 08-20-2024 10:37-0400 Body weight 96.98 kg Ameena Chuy MANAGER [facility]ARE [facility]IT Work Phone: [facility] 08-20-2024 10:37-0400 Heart rate 101 /min Ameena Vera [facility]NAGER [facility] Work Phone: [facility] 08-20-2024 10:37-0400 Respiratory rate 18 /min Ameena Vera [facility]GER [facility] Work Phone: [facility] 08-20-2024 10:37-0400 SaO2% (BldA) [Mass fraction] 93 % Ameena Vera MANAGER [facility] Work Phone: [facility] 07-29-2024 14:08-0400 Body height 156.2 cm Kasi Bennett MD Work Phone: [facility] 07-29-2024 14:08-0400 Body mass index (BMI) [Ratio] 39.04 kg/m2 Kasi Bennett MD Work Phone: [facility] 07-29-2024 14:08-0400 Body weight 95.25 kg Kasi Bennett MD Work Phone: [facility] 07-29-2024 14:08-0400 Diastolic blood pressure 64 mm[Hg] Kasi Bennett MD Work Phone: [facility] 07-29-2024 14:08-0400 Heart rate 86 /min Kasi Bennett MD Work Phone: [facility] 07-29-2024 14:08-0400 Respiratory rate 18 /min Kasi Bennett MD Work Phone: [facility] 07-29-2024 14:08-0400 SaO2% (BldA) [Mass fraction] 93 % Kasi Bennett MD Work Phone: [facility] 07-29-2024 14:08-0400 Systolic blood pressure 100 mm[Hg] Kasi Bennett MD Work Phone: [facility] 05-28-2024 13:16-0400 Body height 154.94 cm [facility] 05-28-2024 13:16-0400 Body mass index (BMI) [Ratio] 39.4 kg/m2 [facility] 05-28-2024 13:16-0400 Body weight 94.8 kg [facility] 05-19-2024 11:10-0400 Body height 157.5 cm Ameena Vera MANAGER [facility] Work Phone: [facility] 05-19-2024 11:10-0400 Body mass index (BMI) [Ratio] 39.03 kg/m2 Ameena Davisholz MANAGER INT[facility]ARE UNIT Work Phone: [facility] 05-19-2024 11:10-0400 Body temperature 98.29 [degF] Ameena Davisholz MANAGER [facility] Work Phone: [facility] 05-19-2024 11:10-0400 Body weight 96.8 kg Ameena Pohholz MANAGER [facility]ARE [facility] Work Phone: [facility] 05-19-2024 11:10-0400 Diastolic blood pressure 80 mm[Hg] Ameena Pohholz MANAGER [facility] Work Phone: [facility] 05-19-2024 11:10-0400 Heart rate 91 /min Ameena Pohholz MANAGER [facility]ARE [facility] Work Phone: [facility] 05-19-2024 11:10-0400 Respiratory rate 18 /min Ameena Pohholz MANAGER [facility] Work Phone: [facility] 05-19-2024 11:10-0400 SaO2% (BldA) [Mass fraction] 96 % Ameena Ryanholz MANAGER [facility] Work Phone: [facility] 05-19-2024 11:10-0400 Systolic blood pressure 116 mm[Hg] Ameena Pohholz MANAGER [facility]IT Work Phone: [facility] 04-21-2024 13:08-0400 Body height 157.5 cm Za Tikamor MANAGER INT[facility]ARE UNIT Work Phone: [facility] 04-21-2024 13:08-0400 Body mass index (BMI) [Ratio] 39.51 kg/m2 Za Gillmor MANAGER [facility]IT Work Phone: [facility] 04-21-2024 13:08-0400 Body weight 97.98 kg Za Gillmor MANAGER [facility] Work Phone: [facility] 04-21-2024 13:08-0400 Diastolic blood pressure 86 mm[Hg] Za Gillmor MANAGER [facility] Work Phone: [facility] 04-21-2024 13:08-0400 Heart rate 96 /min Za Gillmor MANAGER [facility] Work Phone: [facility] 04-21-2024 13:08-0400 SaO2% (BldA) [Mass fraction] 93 % Za Wilkerson MANAGER [facility]IT Work Phone: [facility] 04-21-2024 13:08-0400 Systolic blood pressure 148 mm[Hg] Za Wilkerson MANAGER [facility] Work Phone: [facility] 03-30-2024 09:40-0500 Body height 157.5 cm Sonam Drake MANAGER [facility]IT Work Phone: [facility] 03-30-2024 09:40-0500 Body mass index (BMI) [Ratio] 39.51 kg/m2 Sonam Drake MANAGER [facility] Work Phone: [facility] 03-30-2024 09:40-0500 Body temperature 97.3 [degF] Sonam Drake MANAGER [facility] Work Phone: [facility] 03-30-2024 09:40-0500 Body weight 97.98 kg Sonam Drake MANAGER [facility] Work Phone: [facility] 03-30-2024 09:40-0500 Diastolic blood pressure 74 mm[Hg] Sonam Drake MANAGER [facility] Work Phone: [facility] 03-30-2024 09:40-0500 Heart rate 76 /min Sonam Drake MANAGER [facility] Work Phone: [facility] 03-30-2024 09:40-0500 Respiratory rate 16 /min Sonam Drake MANAGER [facility] Work Phone: [facility] 03-30-2024 09:40-0500 SaO2% (BldA) [Mass fraction] 98 % Sonam Drake MANAGER [facility] Work Phone: [facility] 03-30-2024 09:40-0500 Systolic blood pressure 130 mm[Hg] Sonam Drake MANAGER [facility] Work Phone: [facility] 03-03-2024 10:13-0500 Body height 157.5 cm Sonam Drake MANAGER [facility] Work Phone: [facility] 03-03-2024 10:13-0500 Body mass index (BMI) [Ratio] 39.51 kg/m2 Sonam Drake MANAGER [facility] Work Phone: [facility] 03-03-2024 10:13-0500 Body temperature 97.2 [degF] Sonam Drake MANAGER [facility] Work Phone: [facility] 03-03-2024 10:13-0500 Body weight 97.98 kg Sonam Drake MANAGER [facility] Work Phone: [facility] 03-03-2024 10:13-0500 Diastolic blood pressure 76 mm[Hg] Sonam Drake MANAGER [facility] Work Phone: [facility] 03-03-2024 10:13-0500 Heart rate 84 /min Sonam Drake MANAGER [facility] Work Phone: [facility] 03-03-2024 10:13-0500 Respiratory rate 16 /min Sonam Drake MANAGER [facility] Work Phone: [facility] 03-03-2024 10:13-0500 SaO2% (BldA) [Mass fraction] 96 % Sonam Drake MANAGER [facility] Work Phone: [facility] 03-03-2024 10:13-0500 Systolic blood pressure 120 mm[Hg] Sonam Drake MANAGER [facility] Work Phone: [facility] 12-31-2023 10:06-0500 Body height 157.5 cm Sivan Solo DO Work Phone: [facility] 12-31-2023 10:06-0500 Body mass index (BMI) [Ratio] 39.14 kg/m2 Sivan Solo DO Work Phone: [facility] 12-31-2023 10:06-0500 Body weight 97.07 kg Sivan Solo DO Work Phone: [facility] 12-31-2023 10:06-0500 Diastolic blood pressure 72 mm[Hg] Sivan Solo DO Work Phone: [facility] 12-31-2023 10:06-0500 Heart rate 95 /min Sivan Solo DO Work Phone: [facility] 12-31-2023 10:06-0500 SaO2% (BldA) [Mass fraction] 97 % Sivan Solo DO Work Phone: [facility] 12-31-2023 10:06-0500 Systolic blood pressure 118 mm[Hg] Sivan Solo DO Work Phone: [facility] 12-30-2023 10:46-0500 Body mass index (BMI) [Ratio] 40.06 kg/m2 Sonam Drake MANAGER [facility] Work Phone: [facility] 12-30-2023 10:46-0500 Body weight 99.34 kg Sonam Drake MANAGER [facility] Work Phone: [facility] 12-30-2023 10:46-0500 Diastolic blood pressure 74 mm[Hg] Sonam Drake MANAGER [facility] Work Phone: [facility] 12-30-2023 10:46-0500 Heart rate 97 /min Sonam Drake MANAGER [facility] Work Phone: [facility] 12-30-2023 10:46-0500 SaO2% (BldA) [Mass fraction] 98 % Sonam Drake MANAGER [facility] Work Phone: [facility] 12-30-2023 10:46-0500 Systolic blood pressure 98 mm[Hg] Sonam Drake MANAGER [facility] Work Phone: [facility] 10-03-2023 10:07-0400 Body height 157.5 cm Sonam Drake MANAGER [facility] Work Phone: [facility] 10-03-2023 10:07-0400 Body mass index (BMI) [Ratio] 39.32 kg/m2 Sonam Drake MANAGER [facility] Work Phone: [facility] 10-03-2023 10:07-0400 Body temperature 97.5 [degF] Sonam Drake MANAGER [facility] Work Phone: [facility] 10-03-2023 10:07-0400 Body weight 97.52 kg Sonam Drake MANAGER [facility] Work Phone: [facility] 10-03-2023 10:07-0400 Diastolic blood pressure 70 mm[Hg] Sonam Drake MANAGER [facility] Work Phone: [facility] 10-03-2023 10:07-0400 Heart rate 107 /min Sonam Drake MANAGER [facility] Work Phone: [facility] Comment on above: 97% O2 10-03-2023 10:07-0400 Systolic blood pressure 90 mm[Hg] Sonam Drake MANAGER [facility] Work Phone: [facility] 01-18-2023 09:10-0500 Body height 156.21 cm Elle Hendricks Other [email or web address] Other 01-18-2023 09:10-0500 Body mass index (BMI) [Ratio] 42.82 kg/m2 Elle Hendricks Other [email or web address] Other 01-18-2023 09:10-0500 Body temperature 98.2 [degF] Elle Hendricks Other [email or web address] Other 01-18-2023 09:10-0500 Body weight 104.51 kg Elle Hendricks Other [email or web address] Other 01-18-2023 09:10-0500 Diastolic blood pressure 92 mm[Hg] Elle Hendricks Other [email or web address] Other 01-18-2023 09:10-0500 Respiratory rate 18 /min Elle Hendricks Other [email or web address] Other 01-18-2023 09:10-0500 SaO2% (BldA) [Mass fraction] 97 % Elle Hendricks Other [email or web address] Other 01-18-2023 09:10-0500 Systolic blood pressure 145 mm[Hg] Elle Hendricks Other [email or web address] Other Encounters Encounter Date Encounter Type Care Provider Facility Start: 08-20-2024 End: 08-31-2024 ambulatory AMEENA CHUY Not Available Comment on above: Bilateral lower extr emity edema; Migraine with aura and without status migrainosus, not intractable ; Type 2 diabetes mellitus with diabetic microalbuminuria, without long-term current use of insulin (HCC); Osteoporosis, unspecified osteoporosis type, unspecified pathological fracture presence Start: 08-20-2024 End: 08-20-2024 Office outpatient visit 25 minutes Ameena Vera MANAGER [facility]IT Work Phone: [facility] Comment on above: Type 2 diabetes cory itus with diabetic microalbuminuria, without long-term current use of insulin (HCC) (Primary Dx); Essential hypertension; Morbid (severe) obesity due to excess calories (E66.01); Cigarette nicotine dependence without complication; Chronic gout of multiple sites, unspecified cause; Gastroesophageal reflux disease without esophagitis; Bilateral lower extremity edema Start: 08-05-2024 End: 08-05-2024 Refill Ameenaovidio Vera MANAGER [facility]IT Work Phone: [facility] Comment on above: Chronic gout of mult iple sites, unspecified cause (Primary Dx) Type 2 diabetes cory itus with diabetic microalbuminuria, without long-term current use of insulin (HCC) Start: 08-02-2024 End: 08-04-2024 Refill Jose Chandler MD Work Phone: [facility] Comment on above: Lumbar back pain Start: 07-29-2024 End: 07-29-2024 Bamboo flowsheet Kasi Bennett MD Work Phone: [facility] Start: 07-29-2024 End: 07-29-2024 Bamboo flowsheet Kasi Bennett MD Work Phone: [facility] Start: 07-29-2024 End: 07-29-2024 Office outpatient new 45 minutes Kasi Bennett MD Work Phone: [facility] Comment on above: Hypercalcemia (Prima ry Dx); Low serum parathyroid hormone (PTH); Vitamin D deficiency Start: 07-29-2024 End: 07-29-2024 ambulatory KASI BENNETT Not Available Start: 07-26-2024 End: 07-27-2024 Refill Ameena Aicyessicaz MANAGER [facility] Work Phone: [facility] Comment on above: Lumbar back pain Start: 07-22-2024 End: 07-22-2024 Refill Jose Chandler MD Work Phone: [facility] Comment on above: Type 2 diabetes cory itus with diabetic microalbuminuria, without long-term current use of insulin ([facility]) Start: 07-14-2024 End: 07-14-2024 Orders Only Ameena Chuy MANAGER [facility]IT Work Phone: [facility] Comment on above: Low serum parathyroi d hormone (PTH) (Primary Dx) Start: 07-09-2024 End: 07-09-2024 Clinisync Result Encounter Ameena Aicyessicaz MANAGER [facility]ARE UNIT Work Phone: [facility] Unsolicited Start: 07-09-2024 End: 07-09-2024 Clinisync Result Encounter Ameena Aichholz MANAGER [facility] Work Phone: [facility] Unsolicited Start: 06-23-2024 End: 06-23-2024 Refill Ameena Aichholz MANAGER [facility] Work Phone: [facility] Comment on above: Diabetic polyneuropa thy associated with type 2 diabetes mellitus ([facility]) Start: 06-22-2024 End: 06-22-2024 ambulatory Tanya Crowley MD Facility:[facility] Start: 06-11-2024 End: 06-11-2024 Refill Ameena Vera MANAGER [facility] Work Phone: [facility] Comment on above: Acute non-recurrent sinusitis of other sinus (Primary Dx) Start: 06-03-2024 End: 06-03-2024 Orders Only Ameena Vera MANAGER [facility]ARE [facility]IT Work Phone: [facility] Comment on above: Hypercalcemia (Prima ry Dx); Low serum parathyroid hormone (PTH) Start: 05-28-2024 End: 05-28-2024 Patient encounter procedure [facility] Work Phone: Start: 05-28-2024 End: 05-28-2024 Patient encounter procedure [facility] Start: 05-28-2024 End: 05-28-2024 ambulatory Lui Banks II Facility:[facility] Start: 05-22-2024 End: 05-22-2024 Orders Only Ameena Vera MANAGER [facility]ARE UNIT Work Phone: [facility] Comment on above: Hypercalcemia (Prima ry Dx) Start: 05-21-2024 End: 05-21-2024 Clinisync Result Encounter Ameena Chuy MANAGER [facility]ARE UNIT Work Phone: [facility] Unsolicited Start: 05-21-2024 End: 05-21-2024 Clinisync Result Encounter Ameena Chuy MANAGER [facility]IT Work Phone: [facility] External [facility] Unsolicited Start: 05-19-2024 End: 05-19-2024 Bamboo flowsheet Ameena Vera MANAGER [facility]ARE [facility]IT Work Phone: [facility] Start: 05-19-2024 End: 05-19-2024 Bamboo flowsheet Ameena Vera MANAGER INT[facility]ARE UNIT Work Phone: [facility] Start: 05-19-2024 End: 05-19-2024 ambulatory AMEENA CHUY Not Available Start: 05-19-2024 End: 05-19-2024 Office outpatient visit 25 minutes Ameena Vrea MANAGER INT[facility]ARE UNIT Work Phone: [facility] Comment on above: Type 2 diabetes cory itus with diabetic microalbuminuria, without long-term current use of insulin ([facility]) (Primary Dx); Morbid (severe) obesity due to excess calories ([facility]); Other hyperlipidemia; Body mass index (BMI) 39.0-39.9, adult; JANETT (obstructive sleep apnea); Bilateral lower extremity edema; Migraine with aura and without status migrainosus, not intractable ([facility]); Cigarette nicotine dependence without complication; Hypercalcemia; Essential hypertension; Elevated blood uric acid level; Lumbar back pain; Gastroesophageal reflux disease without esophagitis; Chronic gout of multiple sites, unspecified cause; Acute pain of right knee; Diabetic polyneuropathy associated with type 2 diabetes mellitus ([facility]) Start: 05-06-2024 End: 05-06-2024 Mikkiill Jose Chandler MD Work Phone: [facility] Comment on above: Bilateral lower extr emity edema (Primary Dx) Start: 04-21-2024 End: 04-21-2024 Bamboo flowsheet Za Wilkerson MANAGER INT[facility]ARE UNIT Work Phone: [facility] Start: 04-21-2024 End: 04-21-2024 Bamboo flowsheet Za Wilkerson MANAGER [facility]ARE [facility]IT Work Phone: [facility] Start: 04-21-2024 End: 04-21-2024 ambulatory ZA WILKERSON Not Available Start: 04-21-2024 End: 04-21-2024 Office outpatient visit 25 minutes Za Wilkerson MANAGER [facility]ARE UNIT Work Phone: [facility] Comment on above: JANETT (obstructive sle ep apnea) (Primary Dx); Hypersomnia; Snoring; Primary insomnia; Tobacco abuse Start: 03-30-2024 End: 03-30-2024 Bamboo flowsheet Sonam Drake MANAGER INT[facility]ARE UNIT Work Phone: [facility] Start: 03-30-2024 End: 03-30-2024 Bamboo flowsheet Sonam Drake MANAGER [facility]ARE [facility]IT Work Phone: [facility] Start: 03-30-2024 End: 03-30-2024 Office outpatient visit 15 minutes Alicia Monroy MD Work Phone: [facility] Comment on above: Hidradenitis suppura tiva (Primary Dx); Lentigines; Melanocytic nevus of trunk; Congenital non-neoplastic nevus; History of basal cell carcinoma Start: 03-30-2024 End: 03-30-2024 Refill Jolly Castaneda MA [facility] Comment on above: Type 2 diabetes cory itus with diabetic microalbuminuria, without long-term current use of insulin (CMS/HCC) Start: 03-30-2024 End: 03-30-2024 Office outpatient visit 15 minutes Sonam Drake MANAGER [facility]ARE UNIT Work Phone: [facility] Comment on above: Type 2 diabetes cory itus with diabetic microalbuminuria, without long-term current use of insulin (CMS/HCC) (Primary Dx); Essential hypertension; Other hyperlipidemia (CMS/HCC); JANETT (obstructive sleep apnea); Type 2 diabetes mellitus without complication, without long-term current use of insulin (CMS/HCC) Start: 03-18-2024 End: 03-18-2024 Clinisync Result Encounter Generic External Data Provider [facility] External Department Unsolicited Start: 03-18-2024 End: 03-18-2024 Clinisync Result Encounter Generic External Data Provider [facility] External [facility] Unsolicited Start: 03-16-2024 End: 03-16-2024 Refill Sonam Drake MANAGER [facility]IT Work Phone: [facility] Comment on above: Gastroesophageal ref lux disease without esophagitis Start: 03-09-2024 End: 03-09-2024 Refill Sonam Drake MANAGER [facility]ARE UNIT Work Phone: [facility] Comment on above: Osteoporosis, unspec ified osteoporosis type, unspecified pathological fracture presence ([facility]) Start: 03-03-2024 End: 03-03-2024 Bamboo flowsheet Sonam Princek MANAGER INT[facility]ARE UNIT Work Phone: [facility] Start: 03-03-2024 End: 03-03-2024 Bamboo flowsheet Sonam Princek MANAGER INT[facility]ARE UNIT Work Phone: [facility] Start: 03-03-2024 End: 03-03-2024 ambulatory SONAM PRINCEK Not Available Start: 03-03-2024 End: 03-03-2024 Office outpatient visit 10 minutes Sonamaislinn Drake MANAGER INTENSIVE CARE UNIT Work Phone: [facility] Comment on above: Upper respiratory in fection with cough and congestion (Primary Dx); Lumbar back pain; Migraine with aura and without status migrainosus, not intractable ([facility]); Type 2 diabetes mellitus with diabetic microalbuminuria, without long-term current use of insulin ([facility]); Diabetic polyneuropathy associated with type 2 diabetes mellitus ([facility]); Other hyperlipidemia ([facility]) Start: 01-30-2024 End: 01-30-2024 Refill Jolly Castaneda MA [facility] Comment on above: Lumbar back pain (Pr imary Dx); Type 2 diabetes mellitus with diabetic microalbuminuria, without long-term current use of insulin ([facility]) Start: 01-14-2024 End: 01-14-2024 Refill Jolly Castaneda MA [facility] Comment on above: Lumbar back pain Start: 12-31-2023 End: 12-31-2023 Clinisync Result Encounter Sonam Drake MANAGER INT[facility]ARE UNIT Work Phone: [facility] Unsolicited Start: 12-31-2023 End: 12-31-2023 Clinisync Result Encounter Sonam Princek MANAGER INT[facility]ARE UNIT Work Phone: [facility] Unsolicited Start: 12-31-2023 End: 12-31-2023 Office consultation new/estab patient 60 min Sivan Banda DO Work Phone: [facility] Comment on above: JANETT (obstructive sle ep apnea) (Primary Dx); Hypersomnia; Snoring; Primary insomnia; Tobacco abuse Start: 12-31-2023 End: 12-31-2023 ambulatory SIVAN BANDA Not Available Start: 12-30-2023 End: 12-30-2023 Bamboo flowsheet Sonam Drake MANAGER INT[facility]ARE UNIT Work Phone: [facility] Start: 12-30-2023 End: 12-30-2023 Bamboo flowsheet Sonam Drake MANAGER [facility]ARE UNIT Work Phone: [facility] Start: 12-30-2023 End: 12-30-2023 Office outpatient visit 15 minutes Sonam Princek MANAGER INT[facility]ARE UNIT Work Phone: [facility] Comment on above: Type 2 diabetes cory itus with diabetic microalbuminuria, without long-term current use of insulin ([facility]) (Primary Dx); Essential hypertension; Other hyperlipidemia (CMS/[facility]); Snoring; Mixed urge and stress incontinence Start: 12-30-2023 End: 12-30-2023 ambulatory SONAM DRAKE Not Available Start: 12-17-2023 End: 12-17-2023 Refill Jolly Castaneda MA [facility] Comment on above: Migraine with aura a nd without status migrainosus, not intractable (CMS/[facility]); Diabetic polyneuropathy associated with type 2 diabetes mellitus ([facility]/HCC) Start: 12-17-2023 End: 12-18-2023 Refill Sonam Drake MANAGER [facility]IT Work Phone: [facility] Comment on [...] 10-03-2023 End: 10-03-2023 Bamboo flowsheet Sonam Drake MANAGER [facility]ARE UNIT Work Phone: [facility] Start: 10-03-2023 End: 10-03-2023 Bamboo flowsheet Sonam Princek MANAGER INT[facility]ARE [facility]IT Work Phone: [facility] Start: 10-03-2023 End: 10-03-2023 ambulatory SONAM MARRTRICK Not Available Start: 10-03-2023 End: 10-03-2023 Office outpatient visit 25 minutes Sonam Drake MANAGER INT[facility]ARE UNIT Work Phone: [facility] Comment on [...] Mixed urge and stress incontinence; Snoring Start: 04-30-2023 End: 04-30-2023 ambulatory [facility] Work Phone: Start: 04-30-2023 End: 04-30-2023 Patient encounter procedure [facility] Work Phone: Start: 03-21-2023 Orders Only Shaikh Maricel HOLLIS Work Phone: [facility] Comment on above: Diabetic polyneuropa thy associated with type 2 diabetes mellitus (CMS/HCC) (Primary Dx) Start: 03-19-2023 End: 03-19-2023 ambulatory Ana Luisa Curtis Other [email or web address] Other Start: 03-19-2023 Office outpatient vi sit 15 minutes Ana Luisa Calvey [facility] Start: 01-23-2023 End: 01-23-2023 ambulatory Ana Luisa Calvey Other [email or web address] Other Start: 01-23-2023 Office outpatient vi sit 15 minutes Ana Luisa Calvey [facility] Start: 01-18-2023 End: 01-18-2023 ambulatory Elle Ruthie Other [email or web address] Other Start: 01-18-2023 Office outpatient vi sit 15 minutes Elle Ruthie [facility] Start: 09-19-2022 End: 09-19-2022 ambulatory Ana Luisa Calvey Other [email or web address] Other Start: 09-19-2022 Telephone encounter Ana Luisa Curtis [facility] Start: 07-12-[address] JONATHAN EDWARDS Facili ty:H1 Start: 06-07-2022 End: 06-08-[address] JONATHAN EDWARDS Facility:[facility]1 Start: 05-02-2022 End: 05-02-2022 ambulatory Ana Luisa Julianosteve Other [email or web address] Other Start: 05-02-2022 Office outpatient ne w 30 minutes Ana Luisa Calvey [facility] Start: 04-12-2022 End: 04-13-[address] JONATHAN EDWARDS Facility:[facility]1 Start: 03-08-2022 End: 03-09-[address] JONATHAN EDWARDS Facility:[facility] Start: 02-16-2022 End: 02-17-[address] JONATHAN EDWARDS Facility:[facility] Start: 02-09-2022 End: 02-10-[address] RICARDO HOLM . Facility:[facility]1 Start: 11-16-2021 End: 11-17-[address] JONATHAN EDWARDS Facility:[facility]1 Start: 11-01-2021 End: 11-02-2021 ambulatory CRYS Giordano Facility:[facility]1 Start: 08-30-2021 End: 08-31-2021 ambulatory RADHA BARCLAY [facility] Start: 08-30-2021 End: 08-30-2021 Subsequent hospital visit by physician Sr House DO Work Phone: [facility] Laboratory Comment on above: Routine cervical sme ar Start: 08-16-2021 Encounter for genera l adult medical examination without abnormal findings DR RICARDO HOLM . [facility] Start: 08-09-2021 End: 08-10-2021 Encounter [...] Date Procedure Procedure Detail Performing Clinician Start: 08-20-2024 Hemoglobin glycosyla anne a1c Ameena Vera [facility] Work Phone: Start: 07-09-2024 ALL BASIC METABOLIC PANEL Ameena Vera [facility] Work Phone: Start: 05-28-2024 Plain radiography of pelvis Start: 05-28-2024 X-ray of right knee, four views Start: 05-21-2024 Radiologic examinati on knee 3 views Ameena Vera [facility] Work Phone: Start: 05-21-2024 ALL CBC WITH AUTO DIFF Ameena Vera [facility] Work Phone: Start: 05-19-2024 Hemoglobin glycosyla anne a1c Ameena Nettiez [facility] Work Phone: Start: 03-30-2024 Hemoglobin glycosyla anne a1c Sonam Vidal [facility] Work Phone: Start: 03-18-2024 MM TOMOSYNTHESIS SCR EENING BI Generic External Data Provider Start: 03-18-2024 Mammography Generic Pr ovider Start: 12-31-2023 ALL CBC WITH AUTO DIFF Sonam Drake [facility] Work Phone: Start: 03-20-2023 Mammography Shaikh Marie calero MD Work Phone: Start: 08-30-2021 Microscopic observat ion [Identifier] in Cervix by Cyto stain Sr House DO Work Phone: Plan of Treatment Date Care Activity Detail Author Start: 03-28-2026 Screening for malignant neoplasm of colon [facility] Start: 03-08-2026 Screening for malignant neoplasm of colon [facility] Start: 05-21-2025 Urine screening for protein Diabetes: Urine Protein Screening [facility] Start: 03-30-2025 End: 03-30-2025 Patient encounter procedure 03/30/2025 11:15 AM EST Office Visit [facility] [address] [place] [address] Alicia Monroy MD [address] [place] [address] [facility] Start: 03-18-2025 Screening for malignant neoplasm of breast Mammogram [facility] Start: 02-20-2025 Hemoglobin A1c measurement Diabetes: Hemoglobin A1C [facility] Start: 12-30-2024 Urine screening for protein Diabetes: Urine Protein Screening [facility] Start: 11-23-2024 End: 11-23-2024 Patient encounter procedure 11/23/2024 1:00 PM EDT Office Visit [facility] [address] [place] [phone] Ameena Vera NP [address] [place] [phone] [facility] Start: 11-18-2024 Hemoglobin A1c measurement Diabetes: Hemoglobin A1C [facility] Start: 10-26-2024 End: 10-26-2024 Patient encounter procedure 10/26/2024 1:20 PM EDT Office Visit [facility] [address] [facility] [place] [address] Za Wilkerson NP [address] [facility] [address] [place] [facility] Start: 10-12-2024 Influenza vaccination [facility] Start: 09-30-2024 End: 09-30-2024 Patient encounter procedure 09/30/2024 2:40 PM EDT Office Visit [facility] [address] [place] [phone] Kasi Bennett MD [address] [place] [address] [facility] Start: 09-27-2024 Hemoglobin A1c measurement Diabetes: Hemoglobin A1C [facility] Start: 08-30-2024 Screening for malignant neoplasm of cervix [facility] Start: 08-20-2024 End: 08-20-2024 Patient encounter procedure 08/20/2024 10:30 AM EDT Office Visit [facility] [address] [place] [address] Ameena Vera NP [address] [place] [address] [facility] Start: 07-29-2024 End: 07-29-2025 25-hydroxyvitamin D3 [Mass/volume] in Serum or Plasma Vitamin D 25 hydroxy Total Lab Routine Low serum parathyroid hormone (PTH) Hypercalcemia Vitamin D deficiency Expected: 07/29/2024 (Approximate), Expires: 07/29/2025 [facility] Comment on above: Expected: 07/29/2024 (Approximate), Expi res: 07/29/2025 Start: 07-29-2024 End: 07-29-2025 Magnesium [Mass/volume] in Serum or Plasma Magnesium Lab Routine Low serum parathyroid hormone (PTH) Hypercalcemia Expected: 07/29/2024 (Approximate), Expires: 07/29/2025 [facility] Work Phone: Comment on above: Expected: 07/29/2024 (Approximate), Expi res: 07/29/2025 Start: 07-29-2024 End: 07-29-2025 Parathyrin.intact and Calcium panel - Serum or Plasma PTH, intact and calcium Lab Routine Low serum parathyroid hormone (PTH) Hypercalcemia Expected: 07/29/2024 (Approximate), Expires: 07/29/2025 [facility] Comment on above: Expected: 07/29/2024 (Approximate), Expi res: 07/29/2025 Start: 07-29-2024 End: 07-29-2024 Patient encounter procedure [facility] Comment on above: Low serum parathyroid hormone (PTH) Start: 07-29-2024 End: 07-29-2025 Renal function panel Renal function panel Lab Routine Low serum parathyroid hormone (PTH) Hypercalcemia Expected: 07/29/2024 (Approximate), Expires: 07/29/2025 [facility] Comment on above: Expected: 07/29/2024 (Approximate), Expi res: 07/29/2025 Start: 07-26-2024 Urine screening for protein Diabetes: Urine Protein Screening [facility] Start: 07-03-2024 End: 06-03-2025 25-hydroxyvitamin D3 [Mass/volume] in Serum or Plasma Vitamin D 25 hydroxy Lab Routine Hypercalcemia Expected: 07/03/2024 (Approximate), Expires: 06/03/2025 [facility] Comment on above: Expected: 07/03/2024 (Approximate), Expi res: 06/03/2025 Start: 07-03-2024 End: 06-03-2025 Basic metabolic 1998 panel - Serum or Plasma Basic metabolic panel Lab Routine Hypercalcemia Low serum parathyroid hormone (PTH) Expected: 07/03/2024 (Approximate), Expires: 06/03/2025 [facility] Comment on above: Expected: 07/03/2024 (Approximate), Expi res: 06/03/2025 Start: 07-03-2024 End: 06-03-2025 Parathyrin.intact [Mass/volume] in Serum or Plasma PTH, intact Lab Routine Low serum parathyroid hormone (PTH) Expected: 07/03/2024 (Approximate), Expires: 06/03/2025 [facility] Work Phone: Comment on above: Expected: 07/03/2024 (Approximate), Expi res: 06/03/2025 Start: 06-25-2024 End: 06-25-2024 Patient encounter procedure [facility] Start: 05-22-2024 End: 05-22-2025 Parathyrin.intact [Mass/volume] in Serum or Plasma PTH, intact Lab Routine Hypercalcemia Expected: 05/22/2024 (Approximate), Expires: 05/22/2025 [facility] Work Phone: Comment on above: Expected: 05/22/2024 (Approximate), Expi res: 05/22/2025 Start: 05-19-2024 End: 05-19-2025 25-hydroxyvitamin D3 [Mass/volume] in Serum or Plasma Vitamin D 25 hydroxy Lab Routine Hypercalcemia Expected: 05/19/2024 (Approximate), Expires: 05/19/2025 [facility] Comment on above: Expected: 05/19/2024 (Approximate), Expi res: 05/19/2025 Start: 05-19-2024 End: 05-19-2025 CBC W Auto Differential panel - Blood CBC and differential Lab Routine JANETT (obstructive sleep apnea) Cigarette nicotine dependence without complication Expected: 05/19/2024 (Approximate), Expires: 05/19/2025 [facility] Comment on above: Expected: 05/19/2024 (Approximate), Expi res: 05/19/2025 Start: 05-19-2024 End: 05-19-2025 Comprehensive metabolic 2000 panel - Serum or Plasma Comprehensive metabolic panel Lab Routine Other hyperlipidemia Bilateral lower extremity edema Type 2 diabetes mellitus with diabetic microalbuminuria, without long-term current use of insulin ([facility]) Hypercalcemia Essential hypertension Expected: 05/19/2024 (Approximate), Expires: 05/19/2025 [facility] Comment on above: Expected: 05/19/2024 (Approximate), Expi res: 05/19/2025 Start: 05-19-2024 End: 05-19-2025 Lipid 1996 panel - Serum or Plasma Lipid panel Lab Routine Other hyperlipidemia Expected: 05/19/2024 (Approximate), Expires: 05/19/2025 [facility] Work Phone: Comment on above: Expected: 05/19/2024 (Approximate), Expi res: 05/19/2025 Start: 05-19-2024 End: 05-19-2025 Microalbumin/Creatinine panel in random Urine Microalbumin / creatinine, urine ratio Lab Routine Type 2 diabetes mellitus with diabetic microalbuminuria, without long-term current use of insulin ([facility]) Essential hypertension Expected: 05/19/2024 (Approximate), Expires: 05/19/2025 [facility] Comment on above: Expected: 05/19/2024 (Approximate), Expi res: 05/19/2025 Start: 05-19-2024 End: 05-19-2025 Parathyrin.intact [Mass/volume] in Serum or Plasma PTH, intact Lab Routine Hypercalcemia Expected: 05/19/2024 (Approximate), Expires: 05/19/2025 [facility] Comment on above: Expected: 05/19/2024 (Approximate), Expi res: 05/19/2025 Start: 05-19-2024 End: 05-19-2025 Urate [Mass/volume] in Serum or Plasma Uric acid Lab Routine Elevated blood uric acid level Expected: 05/19/2024 (Approximate), Expires: 05/19/2025 [facility] Comment on above: Expected: 05/19/2024 (Approximate), Expi res: 05/19/2025 Start: 05-19-2024 End: 05-19-2025 Urinalysis complete panel - Urine Urinalysis with reflex microscopic (clean catch) Lab Routine Type 2 diabetes mellitus with diabetic microalbuminuria, without long-term current use of insulin ([facility]) Cigarette nicotine dependence without complication Essential hypertension Elevated blood uric acid level Expected: 05/19/2024 (Approximate), Expires: 05/19/2025 [facility] Comment on above: Expected: 05/19/2024 (Approximate), Expi res: 05/19/2025 Start: 05-19-2024 End: 05-19-2025 XR Knee - right 3 Views XR knee 3 views right Imaging Routine Acute pain of right knee Expected: 05/19/2024 (Approximate), Expires: 05/19/2025 [facility] Comment on above: Expected: 05/19/2024 (Approximate), Expi res: 05/19/2025 Start: 05-19-2024 End: 05-19-2024 Patient encounter procedure 05/19/2024 11:00 AM EDT Office Visit [facility] [address] [place] [address] Ameena Vera NP [address] [place] [address] [facility] Start: 04-21-2024 End: 04-21-2024 Patient encounter procedure 04/21/2024 1:00 PM EDT Office Visit [facility] [address] [place] [phone] Za Wilkerson NP [address] [place], [place] [facility] Start: 03-30-2024 End: 03-30-2024 Patient encounter procedure 03/30/2024 11:05 AM EST Office Visit [facility] [address] [place] [phone] Alicia Monroy MD [address] [place] [address] [facility] Start: 03-26-2024 End: 03-26-2024 Patient encounter procedure 03/26/2024 2:00 PM EST Office Visit [facility] [address] [place] [phone] Sonam Drake NP [address] [place] [phone] [facility] Start: 03-24-2024 End: 03-24-2024 Patient encounter procedure [facility] [place] [address] Start: 03-20-2024 Screening for malignant neoplasm of breast Mammogram [facility] Start: 02-27-2024 End: 02-27-2024 Patient encounter procedure 02/27/2024 11:35 AM EST Office Visit [facility] [address] [place] [phone] Alicia Monroy MD [address] [place] [address] [facility] Start: 02-25-2024 End: 02-25-2024 Patient encounter procedure 02/25/2024 3:30 PM EST Office Visit [facility] [address] [place] [address] Sonam Drake NP [address] [place] [phone] [facility] Start: 02-21-2024 Medicare Annual Wellness (AWV) Medicare Annual Wellness (AWV) [facility] Start: 02-12-2024 Glaucoma screening Diabetes: Retinopathy Screening [facility] Start: 01-25-2024 Hemoglobin A1c measurement Diabetes: Hemoglobin A1C [facility] Start: 12-31-2023 End: 12-30-2024 Polysomnography [facility] Routine JNAETT (obstructive sleep apnea) Expected: 12/31/2023 (Approximate), Expires: 12/30/2024 [facility] Work Phone: Comment on above: Expected: 12/31/2023 (Approximate), Expi res: 12/30/2024 Start: 12-31-2023 End: 12-31-2023 Patient encounter procedure 12/31/2023 10:00 AM EST Office Visit [facility] [place] [address] [place] [address] Sivan Banda DO [address] [place] [address] [facility] [place] [address] Start: 12-30-2023 End: 12-29-2024 CBC W Auto Differential panel - Blood CBC and differential Lab Routine Type 2 diabetes mellitus with diabetic microalbuminuria, without long-term current use of insulin ([facility]) Essential hypertension Expected: 12/30/2023 (Approximate), Expires: 12/29/2024 [facility] Comment on above: Expected: 12/30/2023 (Approximate), Expi res: 12/29/2024 Start: 12-30-2023 End: 12-29-2024 Comprehensive metabolic 2000 panel - Serum or Plasma Comprehensive metabolic panel Lab Routine Type 2 diabetes mellitus with diabetic microalbuminuria, without long-term current use of insulin ([facility]) Essential hypertension Expected: 12/30/2023 (Approximate), Expires: 12/29/2024 [facility] Comment on above: Expected: 12/30/2023 (Approximate), Expi res: 12/29/2024 Start: 12-30-2023 End: 12-29-2024 Hemoglobin A1c/Hemoglobin.total in Blood Hemoglobin A1c Lab Routine Type 2 diabetes mellitus with diabetic microalbuminuria, without long-term current use of insulin ([facility]) Expected: 12/30/2023 (Approximate), Expires: 12/29/2024 [facility] Comment on above: Expected: 12/30/2023 (Approximate), Expi res: 12/29/2024 Start: 12-30-2023 End: 12-30-2023 Patient encounter procedure 12/30/2023 10:30 AM EST Office Visit [facility] [address] [place] [phone] Sonam Drake NP [address] [place] [phone] [facility] Start: 11-04-2023 End: 11-04-2023 Patient encounter procedure 11/04/2023 2:30 PM EDT Office Visit [facility] [place] [address] [place] [address] Sivan Banda, DO [address] [place] [address] [facility] [place] [address] Start: 10-13-2023 Influenza vaccination Influenza Vaccine (#1) [facility] Start: 08-11-2023 Influenza vaccination Influenza Vaccine (#1) [facility] Comment on above: Postponed from 10/12/2022 (Patient Refus ed) Start: 05-02-2023 End: 05-02-2023 Patient encounter procedure 05/02/2023 2:00 PM EDT Office Visit [facility] [address] [place] [address] Shaikh Connelly MD [address] [place] [address] [facility] Start: 02-17-2023 Hemoglobin A1c measurement Diabetes: Hemoglobin A1C [facility] Start: 09-04-2022 End: 09-04-2022 Patient encounter procedure 09/04/2022 Office Visit Obstetrics and Gynecology Radha Barclay, [place] [address] [facility] [address] [place] [address] [facility] Start: 10-12-2021 Influenza vaccination Flu vaccine (#1) [facility] Start: 10-21-2013 Screening for malignant neoplasm of breast Breast cancer screen [facility] Start: 10-21-2013 Shingles vaccine (1 of 2) Shingles vaccine (1 of 2) [facility] Start: 10-21-2008 Screening for malignant neoplasm of colon [facility] Start: 2003 Lipid panel Lipids [facility] Start: 10-21-1998 Diabetes screen Diabetes screen [facility] Start: 10-21-1993 Screening for malignant neoplasm of cervix [facility] Start: 10-21-1982 DTaP/Tdap/Td vaccine (1 - Tdap) DTaP/Tdap/Td vaccine (1 - Tdap) [facility] Start: 10-21-1982 Urine screening for protein Diabetes: Urine Protein Screening [facility] Start: 10-21-1981 Hepatitis C screening Hepatitis C screen [facility] Start: 10-21-1978 HIV screening HIV screen [facility] Start: 1975 Depression Screen Depression Screen [facility] Start: 04-20-1964 COVID-19 Vaccine (#1) COVID-19 Vaccine (#1) [facility] Start: 1963 Screening for malignant neoplasm of colon [facility] End: 08-30-2021 Cytopathology procedure, preparation of smear, genital source [facility] Lab Routine Routine cervical smear 1 Occurrences starting 08/30/2021 until 08/30/2021 [facility] Work Phone: Comment on above: 1 Occurrences starting 08/30/2021 until 08/30/2021 Microalbumin/Creatin ine panel in random Urine Microalbumin / creatinine urine ratio Lab Routine Type 2 diabetes mellitus with diabetic microalbuminuria, without long-term current use of insulin ([facility]) Essential hypertension Ordered: 12/30/2023 [facility] Work Phone: Comment on above: Ordered: 12/30/2023 Immunizations Immunization Date Immunization Notes Care Provider Tima garcia 01-14-2017 influenza, injectabl e, quadrivalent, preservative [facility] 01-14-2017 influenza virus vaccine, unspecified formulation Sonam Drake NP Work Phone: [facility] Payers Date Payer Category Payer Self-pay [id number] 2022 Private Health Insurance [id number] 2022 Unknown [id number] [id number] 2022 Unknown 2022 2012 Medicare [id number] 1963 Unknown [id number] 2.16.8 40.1.588039.3.579.2.173 1963 Unknown [id number] 2.16.84 0.1.821690.3.579.2.593 1963 Unknown [id number] 2.16.84 0.1.758839.3.579.2.593 1963 Unknown [id number] 2.16.84 0.1.518048.3.579.2.593 1963 Unknown [id number] 2.16.84 0.1.898309.3.579.2.593 1963 Unknown [id number] 2.16.84 0.1.784008.3.579.2.593 1963 Unknown [id number] 2.16.84 0.1.177431.3.579.2.593 1963 Unknown [id number] 2.16.84 0.1.027974.3.579.2.593 1963 Unknown [id number] 2.16.84 0.1.193227.3.579.2.593 1963 Unknown [id number] 2.16.84 0.1.854881.3.579.2.593 1963 Unknown [id number] 2.16.84 0.1.161498.3.579.2.593 1963 Unknown [id number] 2.16.84 0.1.564259.3.579.2.593 1963 Unknown [id number] 2.16.84 0.1.355262.3.579.2.593 1963 Unknown [id number] 2.16.84 0.1.792431.3.579.2.593 1963 Unknown [id number] 2.16.84 0.1.860377.3.579.2.593 1963 Unknown [id number] 2.16.84 0.1.000237.3.579.2.593 1963 Unknown [id number] 2.16.84 0.1.669017.3.579.2.593 1963 Unknown [id number] 2.16. 840.1.912172.3.579.2.196 1963 Unknown [id number] 2.16.8 40.1.336410.3.579.2.9 1963 Unknown [id number] 2.16.8 40.1.793566.3.579.2.1258 1963 Unknown [id number] 2.16.84 0.1.797419.3.579.2.1258 1963 Unknown [id number] 2.16.84 0.1.167931.3.579.2.1258 1963 Unknown [id number] 2.16.84 0.1.531192.3.579.2.9 1963 Unknown [id number] 2.16.84 0.1.997125.3.579.2.1258 1963 Unknown [id number] 2.16.84 0.1.231522.3.579.2.1259 1963 Unknown [id number] 2.16.84 0.1.179513.3.579.2.9 1963 Unknown [id number] 2.16.84 0.1.337528.3.579.2.9 1963 Unknown [id number] 2.16.84 0.1.792083.3.579.2.1259 1959 Medicare [id number] 1.2.840.186573.1.13.239.2.7.3.191214.315 1959 Unknown [id number] 1.2.840.950505.1.13.239.2.7.3.643665.315 1959 Unknown [id number] 2.16.8 40.1.881123.19 Medicare Medicare [id number] 2.16.8 40.1.617781.3.579.2.531 Social History Date Type Detail Facility Start: 08-30-2021 End: 04-21-2024 Tobacco smoking status NHIS Smokes tobacco daily [facility] Phone: History of tobacco use Cigarette Smoker B [facility] [employer] Phone: Start: 08-30-2021 End: 04-21-2024 Tobacco use and exposure Smokeless tobacco non-user [facility] Phone: Start: 08-30-2021 Alcohol intake Current drinke r of alcohol (finding) [facility] Phone: Start: 08-30-2021 History SDOH Alcohol Comment occasional [facility] Phone: Start: 1965 Sex Assigned At Not on file B [facility] [employer] Phone: Start: 08-20-2021 End: 08-30-2021 Exposure to SARS-CoV-2 (event) Not sure G5 Start: 02-25-2023 End: 10-02-2023 Sex Assigned At [facility] Start: 01-29-2023 End: 05-20-2024 Tobacco smoking status INIS Ex-smoker [facility] History of tobacco use Current smoker [facility] Start: 01-29-2023 End: 10-02-2023 Cigarettes smoked current (pack per day) - Reported 0.5 [facility] Start: 02-25-2023 End: 08-20-2024 Alcohol intake Lifetime non-drinker (finding) [facility] Start: 1965 Sex Assigned At Female F [facility] History of tobacco use Passive [...] [facility] Start: 05-29-2024 Sex Female (finding) [facility] Medical Equipment Procedure Code Equipment Code Equipment Origin al Text Equipment Identifier Dates [id number] Start: 06-08-2021 End: 04-21-2024 Clinical Notes 06-20-2021 to 08-20-2024 Ameena Vera NP - 08/20/2024 11:22 AM Brady Vera NP - 08/20/2024 10:30 AM EDTHUMBREMY KOHLI - 08/20/2024 10:30 AM Brady Vera NP - 08/20/2024 6:27 AM EDTPatient Instructions Note Date & Type Note Facility 08-20-2024 History of Presen t illness Narrative Associated Problem(s): Bilateral lower extremity edema Refilled lasix She could try 1/2 pill every other day for swelling Heart normal, chest clear Images from the original note were not included. Karina De Oliveira is a 58 y.o. female presents with chief complaint of Diabetes HPI: CGM: 3 day 124, 96% TIR, 4% high 7 day 129, 6.4%, 94% TIR, 5% high 14 day 125, 6.3%, 94% TIR , 4% high 30 dok203, 6.3%m 93% TIR, and 5% high, 1 % very high 90 day 133, 6.5%, 87% TIR, 9%high, 2% very high Diabetes She presents for her follow-up diabetic visit. She has type 2 diabetes mellitus. Her disease course has been stable. There are no hypoglycemic associated symptoms. Pertinent negatives for hypoglycemia include no dizziness, headaches, nervousness/anxiousness, seizures or tremors. Associated symptoms include polyuria. Pertinent negatives for diabetes include no chest pain, no polydipsia and no polyphagia. There are no hypoglycemic complications. Symptoms are stable. Pertinent negatives for diabetic complications include no nephropathy. Risk factors for coronary artery disease include diabetes mellitus, dyslipidemia and obesity. Current diabetic treatments: GLP 1. An MAUREEN inhibitor/angiotensin II receptor dev is not being taken. Eye exam is current. SUBJECTIVE: MEDICATIONS: Current Outpatient Medications Medication Instructions alendronate (FOSAMAX) 70 mg, Oral, Every 7 days, Take in the morning with a full glass of water, on an empty stomach, and do not take anything else by mouth or lie down for the next 30 min. allopurinol (ZYLOPRIM) 300 mg, Oral, Daily baclofen (LIORESAL) 20 mg, Oral, 3 times daily PRN colchicine 0.6 MG tablet TAKE 2 TABLETS BY MOUTH AT ONSET OF ACUTE GOUT, MAY TAKE 1 TABLET IN 1 HOURS. NO MORE THAN 3 TABLETS DAILY Continuous Glucose Swatch Paster (Dexcom G7 Swatch Paster) device 1 each, Does not apply, Continuous Continuous Glucose Sensor (Dexcom G7 Sensor) misc 1 each, Does not apply, Continuous diclofenac (VOLTAREN) 75 mg, Oral, 2 times daily, Do not crush, chew, or split. divalproex (DEPAKOTE) 500 mg, Oral, 2 times daily, Do not crush, chew, or split. famotidine (PEPCID) 20 mg, Oral, 2 times daily furosemide (LASIX) 20 mg, Oral, As needed, Take 20 mg by mouth if needed metFORMIN (GLUCOPHAGE) 500 mg, Oral, 2 times daily with meals oxyCODONE-acetaminophen (Percocet) 5-325 MG tablet 1 tablet, Daily PRN Ozempic (2 MG/DOSE) 2 mg, Subcutaneous, Every 7 days pregabalin (LYRICA) 75 mg, Oral, 3 times daily rizatriptan (MAXALT) 10 mg, Oral, Once as needed, May repeat in 2 hours if unresolved. Do not exceed 30 mg in 24 hours. rosuvastatin (CRESTOR) 20 mg, Oral, Daily ALLERGIES: No Known Allergies REVIEW OF SYMPTOMS: Review of Systems Constitutional: Negative for appetite change, chills and fever. HENT: Negative for congestion, ear pain and sore throat. Eyes: Negative for pain, discharge, redness and visual disturbance. Respiratory: Negative for cough, shortness of breath and wheezing. Cardiovascular: Positive for leg swelling. Negative for chest pain and palpitations. Gastrointestinal: Negative for abdominal pain, blood in stool, constipation, diarrhea, nausea and vomiting. Genitourinary: Negative for difficulty urinating, dysuria and frequency. Musculoskeletal: Positive for arthralgias. Negative for back pain, joint swelling and myalgias. Skin: Negative for rash and wound. Neurological: Negative for dizziness, tremors, seizures, syncope and headaches. Psychiatric/Behavioral: Negative for behavioral problems, self-injury and suicidal ideas. The patient is not nervous/anxious. Hematological: Does not bruise/bleed easily. Endocrine: Positive for polyuria. Negative for polydipsia and polyphagia. Allergic/Immunologic: Negative for environmental allergies and food allergies. PAST MEDICAL HISTORY Past Medical History: Diagnosis Date Acute gout of wrist Basal cell carcinoma Bilateral leg edema Chronic low back pain Cyst, ovary, follicular Diabetes mellitus (HCC) Hallux valgus, right Headache, tension-type Hyperlipidemia Hypertension Labial skin tag Metatarsus adductus of right foot Migraine headache Osteoporosis Restless leg syndrome Right foot pain Sleep apnea 12/2023 Type 2 diabetes mellitus, without long-term current use of insulin (HCC) Past Surgical History: Procedure Laterality Date BACK SURGERY HYSTERECTOMY LUMBAR LAMINECTOMY 1992 family history includes Arthritis in her mother; Cancer in her maternal grandfather and mother; Diabetes in her maternal grandfather and mother; Heart disease in her maternal grandfather and mother; Hyperlipidemia in her mother; Hypertension in her maternal grandfather and mother; Restless legs syndrome in her mother. OBJECTIVE: Visit Vitals BP 90/58 (BP Location: Left arm, Patient Position: Sitting, BP Cuff Size: Large adult) Pulse 101 Temp 98.5 F (Temporal) Resp 18 Wt 213 lb 12.8 oz SpO2 93% BMI 39.74 kg/m Smoking Status Every Day BSA 2.05 m Physical Exam Vitals and nursing note reviewed. Constitutional: General: She is not in acute distress. Appearance: Normal appearance. HENT: Head: Normocephalic and atraumatic. Right Ear: External ear normal. Left Ear: External ear normal. Nose: Nose normal. Mouth/Throat: Mouth: Mucous membranes are moist. Eyes: Extraocular Movements: Extraocular movements intact. Conjunctiva/sclera: Conjunctivae normal. Cardiovascular: Rate and Rhythm: Normal rate and regular rhythm. Pulses: Normal pulses. Heart sounds: Normal heart sounds. No murmur heard. Pulmonary: Effort: Pulmonary effort is normal. Breath sounds: Normal breath sounds. No wheezing or rhonchi. Abdominal: General: Bowel sounds are normal. There is no distension. Palpations: Abdomen is soft. There is no mass. Tenderness: There is no abdominal tenderness. Musculoskeletal: General: Normal range of motion. Cervical back: Normal range of motion and neck supple. Right lower leg: Edema present. Left lower leg: Edema present. Comments: 1+ pedal and pre tibial edema Wearing compression stockings Skin: General: Skin is warm and dry. Capillary Refill: Capillary refill takes 2 to 3 seconds. Findings: No rash. Neurological: General: No focal deficit present. Mental Status: She is alert and oriented to person, place, and time. Psychiatric: Mood and Affect: Mood normal. Behavior: Behavior normal. Thought Content: Thought content normal. Judgment: Judgment normal. ASSESSMENT AND PLAN: Follow up in about 3 months (around 11/20/2024) for Recheck. Problem List Items Addressed This Visit Type 2 diabetes mellitus with diabetic microalbuminuria, without long-term current use of insulin ([facility]) - Primary Check blood sugars daily, notify if <70 [...] ozempic, statin A1c: 6.4% 08/20/24 6.7% 05/19/24 Relevant Orders POCT glycosylated hemoglobin (Hb A1C) docked device (Completed) Essential hypertension (Chronic) No current meds, insurance suggests MAUREEN/ARB, no d/t heart DASH diet Limit caffeine Contact office if chest pain, pressure, dizziness, shortness of breath, swelling legs Current meds: none Morbid (severe) obesity due to excess calories (E66.01) Discussed with patient their BMI (actual, verses recommended). We have also discussed lifestyle modifications: attempts to perform physical activity as chronic conditions allow, also to monitor dietary intake: increasing protein/fruits/veggies and lowering carb intake (unless contraindicated). Limit sodas, juices, and sugary drinks. Is taking ozempic for DM Bilateral lower extremity edema Refilled lasix She could try 1/2 pill every other day for swelling Heart normal, chest clear Cigarette nicotine dependence without complication The patient has been advised of the risks of continued smoking: stroke, DE, all forms of cancer, lung disease, and . Options for quitting smoking include: cold turkey, hypnosis, acupuncture, nicotine replacement meds (gum, lozenges, and patches), Buproprion, and Varenicline. At this time pt is encouraged to evaluate their goals for wanting to quit smoking, and reach out to provider when ready to start this process Chronic gout of multiple sites Relevant Medications allopurinol (Zyloprim) 300 MG tablet Other Visit Diagnoses Gastroesophageal reflux disease without esophagitis Relevant Medications famotidine (Pepcid) 20 MG tablet Possible mosquito bites on back of neck she would like to check out 02 range 90-93% 78/54 Associated Problem(s): Cigarette nicotine dependence without complication The patient has been advised of the risks of continued smoking: stroke, DE, all forms of cancer, lung disease, and . Options for quitting smoking include: cold turkey, hypnosis, acupuncture, nicotine replacement meds (gum, lozenges, and patches), Buproprion, and Varenicline. At this time pt is encouraged to evaluate their goals for wanting to quit smoking, and reach out to provider when ready to start this process Associated Problem(s): Morbid (severe) obesity due to excess calories (E66.01) Discussed with patient their BMI (actual, verses recommended). We have also discussed lifestyle modifications: attempts to perform physical activity as chronic conditions allow, also to monitor dietary intake: increasing protein/fruits/veggies and lowering carb intake (unless contraindicated). Limit sodas, juices, and sugary drinks. Is taking ozempic for DM Associated Problem(s): Type 2 diabetes mellitus with diabetic microalbuminuria, without long-term current use of insulin (HCC) Check blood sugars daily, notify if <70 [...] ozempic, statin A1c: 6.4% 08/20/24 6.7% 05/19/24 Associated Problem(s): Essential hypertension No current meds, insurance suggests MAUREEN/ARB, no d/t heart DASH diet Limit caffeine Contact office if chest pain, pressure, dizziness, shortness of breath, swelling legs Current meds: none documented in this encounter [facility] 08-20-2024 Telephone encount er Note Please call [facility] in [place] for copy of diabetic eye exam [place] [facility] 08-20-2024 Miscellaneous Notes Formattin g of this note might be different from the original. Please call [facility] in [place] for copy of diabetic eye exam [place] documented in this encounter [facility] 08-20-2024 Instructions Ameena Vera NP - 08/20/2024 10:30 AM EDT Furosemide every other day 1/2 tablet documented in this encounter [facility] 07-29-2024 History of Presen t illness Narrative Karina De Oliveira is a 58 y.o. female Ameena Vera NP presents with chief complaint of NEW (PTH REF/LAB) HPI: History of Present Illness The patient presents for hypercalcemia and low PTH, with lab results from May showing a calcium level of 10.4 (normal range 8.5-10.1). She used to take a daily calcium supplement but has since stopped. Her parathyroid hormone (PTH) level has physiologically decreased in response at 8 (normal range 15-64). Kidney function is within normal limits. She has osteoporosis and has been on Fosamax for almost 5 years. She reports some fractures in her feet and back. She reports no history of kidney stones. FAMILY HISTORY She reports no family history of calcium problems. Results Laboratory Studies Calcium 10.4 (normal range 8.5-10.1). PTH 8 (normal range 15-64). Kidney function within normal limits. SUBJECTIVE: MEDICATIONS: Current Outpatient Medications Medication Instructions alendronate (FOSAMAX) 70 mg, Oral, Every 7 days, Take in the morning with a full glass of water, on an empty stomach, and do not take anything else by mouth or lie down for the next 30 min. allopurinol (ZYLOPRIM) 300 mg, Oral, Daily baclofen (LIORESAL) 20 mg, Oral, 3 times daily PRN colchicine 0.6 MG tablet TAKE 2 TABLETS BY MOUTH AT ONSET OF ACUTE GOUT, MAY TAKE 1 TABLET IN 1 HOURS. NO MORE THAN 3 TABLETS DAILY Continuous Glucose Swatch Paster (Dexcom G7 Swatch Paster) device 1 each, Does not apply, Continuous [...] mg, Oral, 2 times daily with meals Ozempic (2 MG/DOSE) 2 mg, Subcutaneous, Every 7 days pregabalin (LYRICA) 75 mg, Oral, 3 times daily rizatriptan (MAXALT) 10 mg, Oral, Once as needed, May repeat in 2 hours if unresolved. Do not exceed 30 mg in 24 hours. rosuvastatin (CRESTOR) 20 mg, Oral, Daily ALLERGIES: No Known Allergies Past Medical History: Diagnosis Date Acute gout of wrist Basal cell carcinoma Bilateral leg edema Chronic low back pain Cyst, ovary, follicular Diabetes mellitus (HCC) Hallux valgus, right Headache, tension-type Hyperlipidemia Hypertension Labial skin tag Metatarsus adductus of right foot Migraine headache Osteoporosis Restless leg syndrome Right foot pain Sleep apnea 12/2023 Type 2 diabetes mellitus, without long-term current use of insulin (HCC) Past Surgical History: Procedure Laterality Date BACK SURGERY HYSTERECTOMY LUMBAR LAMINECTOMY 1992 REVIEW OF SYMPTOMS: 14 POINT OF SYSTEM REVIEWED AND NEGATIVE OBJECTIVE: Visit Vitals BP 100/64 Pulse 86 Resp 18 Ht 5' 1.5 Wt 210 lb SpO2 93% BMI 39.04 kg/m Smoking Status Every Day BSA 2.03 m Physical Exam Constitutional: Appearance: Normal appearance. She is normal weight. HENT: Head: Normocephalic and atraumatic. Right Ear: External ear normal. Nose: Nose normal. Mouth/Throat: Pharynx: Oropharynx is clear. Eyes: Extraocular Movements: Extraocular movements intact. Pupils: Pupils are equal, round, and reactive to light. Cardiovascular: Rate and Rhythm: Normal rate and regular rhythm. Pulmonary: Effort: Pulmonary effort is normal. Abdominal: General: Abdomen is flat. Palpations: Abdomen is soft. Musculoskeletal: General: Normal range of motion. Skin: General: Skin is warm. Neurological: General: No focal deficit present. Mental Status: She is alert. Psychiatric: Mood and Affect: Mood normal. Behavior: Behavior normal. ASSESSMENT AND PLAN: Assessment/Plan Diagnoses and all orders for this visit: Hypercalcemia - Magnesium; Future - PTH, intact and calcium; Future - Renal function panel; Future - Vitamin D 25 hydroxy Total; Future Low serum parathyroid hormone (PTH) - Ambulatory referral to Endocrinology - Magnesium; Future - PTH, intact and calcium; Future - Renal function panel; Future - Vitamin D 25 hydroxy Total; Future Vitamin D deficiency - Vitamin D 25 hydroxy Total; Future Assessment & Plan 1. Hypercalcemia. The hypercalcemia is most likely due to the previous use of a calcium supplement. There is no need for surgery as she has a physiologic decrease in PTH. She is advised to continue with vitamin D 1000 units daily. All labs will be repeated in 2 months before the next visit, including calcium, vitamin D, PTH, and magnesium. Recommendations will be made based on the lab results. 2. Osteoporosis. She has been on Fosamax for almost 5 years and has experienced fractures in her feet and back. Follow up in about 2 months (around 09/28/2024). documented in this encounter [facility] 05-28-2024 Evaluation note Diagnosis Onset Date Resolution Primary osteoarthritis of right knee acute May 28, 2024 12:55pm [facility] Work Phone: [phone] 450-972004-11-2025 History of Present illness Narrative* Ameena Vera NP - 05/22/2024 7:25 AM EDT par documented in this encounterNorthwest Medical [id number] History of Present illness Narrative* Ameena Vera [...] orthopedic surgeon in the past back in [place] for that knee however she does not [...] orthopedic surgeon in the past back in [place] for that knee however she does not [...] MORE THAN 3 TABLETS DAILY Continuous Glucose Swatch Paster (Dexcom G7 Swatch Paster) device 1 each, Does not apply, Continuous [...] microalbuminuria, without long-term current use of insulin ([facility]) Check blood sugars daily, notify if <70 [...] aura and without status migrainosus, not intractable ([facility]) Current meds: maxalt, depakote Other hyperlipidemia On [...] Doctor that manages your JANETT: Dr Banda Relevant Orders CBC and differential Body mass index (BMI) 39.0-39.9, adult Cigarette nicotine dependence without complication The patient has been advised of the risks of continued smoking: stroke, DE, all forms of cancer, lung disease, and [...] of the risks of continued smoking: stroke, DE, all forms of cancer, lung disease, and [...] aura and without status migrainosus, not intractable ([facility]) Current meds: maxalt, depakote * Ameena Vera NP - 05/19/2024 6:51 AM EDTAssociated Problem(s): Type 2 diabetes mellitus with diabetic microalbuminuria, without long-term current use of insulin ([facility]) Check blood sugars daily, notify if <70 [...] that supplies your machine and tubing/filters etc: [facility] Doctor that manages your JANETT: Dr Banda documented in this [facility]04-08-2025 Instructions* Patient Instructions* Ameena Vera NP - 05/19/2024 11:00 AM EDT Fasting labs Get xray knee Referral to Dr Darren Orona documented in this [facility]02-17-2025 Telephone encounter Note* Telephone Encounter - Jolly Castaneda MA - 03/30/2024 11:44 AM EST Pt's sensor fell off, and she needs them refilled please [facility] [id number] Miscellaneous Notes* Telephone Encounter - Jolly Castaneda MA - 03/30/2024 11:44 AM EST Pt's sensor fell off, and she needs them refilled please documented in this [facility]02-17-2025 History of Present illness Narrative* Alicia [...] Examined Right arm Examined Patient wearing nail georgian, Denies dark streaks under finger nails, Denies [...] 1 year skin check documented in this encounterNorthwest Medical CenterHaxuxddtbe01-18-3526 History of Present illness Narrative* Sonam Drake NP - 03/30/2024 10:04 AM ESTAssociated Problem(s): JANETT (obstructive sleep apnea) Saw Neurology- was diagnosed with severe JANETT. Has been wearing CPAP religiously. Feels more well rested when wearing. Continue current regimen as directed by neurology. * Sonam Drake NP - 03/30/2024 9:58 AM ESTAssociated Problem(s): Other hyperlipidemia ([facility]) Crestor 20mg Denies myalgias Continue current regimen. * Sonam Drake NP - 03/30/2024 9:58 AM ESTAssociated Problem(s): Essential hypertension BP consistently under goal in office. Not on any medication regimen. Continue to monitor closely. * Sonam Drake NP - 03/30/2024 9:58 AM ESTAssociated Problem(s): Type 2 diabetes mellitus with diabetic microalbuminuria, without long-term current use of insulin ([facility]) Currently taking Metformin Bid and Ozempic 1mg. [...] microalbuminuria, without long-term current use of insulin ([facility]) - Primary Currently taking Metformin Bid [...] (Hb A1C) docked device (Completed) Other hyperlipidemia ([facility]) Crestor 20mg Denies myalgias Continue current regimen. [...] complication, without long-term current use of insulin ([facility]) documented in this [facility]02-17-2025 Instructions* Patient Instructions* Sonam Drake NP [...] carbohydrates, and simple sugars. documented in this [facility]01-21-2025 History of Present illness Narrative* Sonam [...] microalbuminuria, without long-term current use of insulin ([facility]) Relevant Medications metFORMIN (Glucophage) 500 MG tablet Continuous Glucose Swatch Paster (Dexcom G7 Swatch Paster) device Continuous Glucose Sensor (Dexcom G7 Sensor) [...] aura and without status migrainosus, not intractable ([facility]) Relevant Medications divalproex (Depakote) 500 MG EC tablet Other hyperlipidemia ([facility]) Relevant Medications rosuvastatin (Crestor) 20 MG tablet Lumbar back pain Relevant Medications diclofenac (Voltaren) 75 MG EC tablet Other Visit Diagnoses Diabetic polyneuropathy associated with type 2 diabetes mellitus ([facility]) Relevant Medications pregabalin (Lyrica) 75 MG capsule documented in this encounterNorthwest Medical [id number] Instructions* Patient Instructions* Sonam Drake NP - [...] 1500 calories per day. documented in this [facility]12-19-2024 Telephone encounter Note* Telephone Encounter - Jolly Castaneda MA - 01/30/2024 10:38 AM EST GIOVANNA:12/30/2023 NOV:03/26/2024 [facility] [id number] Miscellaneous Notes* Telephone Encounter - Jolly Castaneda MA - 01/30/2024 10:38 AM EST GIOVANNA:12/30/2023 NOV:03/26/2024 documented in this [facility]12-03-2024 Telephone encounter Note* Telephone Encounter - Jolly Castaneda MA - 01/14/2024 8:34 AM EST GIOVANNA:12/30/2023 NOV:03/26/2023 [id number] Miscellaneous Notes* Telephone Encounter - Jolly Castaneda MA - 01/14/2024 8:34 AM EST GIOVANNA:12/30/2023 NOV:03/26/2023 documented in this [facility]11-19-2024 History of Present illness Narrative* Sivan Banda DO - 12/31/2023 10:00 AM EST Images from the original note were not included. No chief complaint on file. Subjective SLEEP CONSULT REFERRAL: Snoring, concern for JANETT, needing sleep study - labs @ [facility]; referral received from Sonam Drake CNP. [...] was counseled on the risks of stroke, DE, and sudden with JANETT, along with the [...] to clinic: 2 months documented in this encounterNorthwest Medical [id number] History of Present illness Narrative* Sonam Drake [...] 12/30/2023 1:18 PM ESTAssociated Problem(s): Other hyperlipidemia ([facility]/HCC) Crestor 20mg Denies myalgias Continue current regimen. * Sonam Drake NP - 12/30/2023 1:17 PM ESTAssociated Problem(s): Type 2 diabetes mellitus with diabetic microalbuminuria, without long-term current use of insulin ([facility]) Currently taking Metformin Bid and Ozempic Most [...] ALBUMIN GLOBULIN RATIO 0.8 Resulting Agency [facility] DMII: Metformin Bid and Ozempic Most [...] microalbuminuria, without long-term current use of insulin ([facility]) - Primary Currently taking Metformin Bid [...] JANETT. First appointment tomorrow. documented in this [facility]11-18-2024 Instructions* Patient Instructions* Sonam Drake NP - 12/30/2023 10:30 AM EST FASTING labs ordered. Nothing to eat or drink for 12 hours prior to blood draw. Water and black coffee ok. Call if you need anything! documented in this [facility]11-05-2024 Telephone encounter Note* Telephone Encounter - Jloly Castaneda MA - 12/17/2023 3:39 PM EST GIOVANNA:10/03/2023 NOV:12/30/2023 [facility] [id number] Miscellaneous Notes* Telephone Encounter - Jolly Castaneda MA - 12/17/2023 3:39 PM EST GIOVANNA:10/03/2023 NOV:12/30/2023 documented in this [facility]08-22-2024 History of Present illness Narrative* Sonam Drake NP - 10/03/2023 10:57 AM EDTAssociated Problem(s): Snoring Screening for JANETT- Referral sent to [facility] * Sonam Drake NP - 10/03/2023 10:35 [...] GLOBULIN RATIO 0.8 Resulting Agency [facility] DMII: Metformin Bid and Ozempic Most recent [...] complication, without long-term current use of insulin ([facility]) Relevant Medications semaglutide (Ozempic, 1 MG/DOSE,) 4 MG/3ML solution pen-injector Diabetic polyneuropathy associated with type 2 diabetes mellitus (CMS/HCC) Relevant Medications pregabalin (Lyrica) 75 MG capsule documented in this encounterNorthwest Medical [id number] Instructions* Patient Instructions* Sonam Drake NP - [...] if you need anything! documented in this encounterNorthwest Medical [id number] Evaluation note* Encounter Date Diagnosis Assessment Notes [...] Left hand pain (ICD- 10 - M79.642) [email or web address] Other 12-13-2023 Evaluation note* Encounter Date Diagnosis [...] noted. Patient will f/u in 4 weeks. [email or web address] Other 12-08-2023 Evaluation note* Encounter Date Diagnosis [...] left hand x-ray that was performed at [facility] which revealed degenerative changes in the hand as well as a remote avulsion fracture of the thumb. Patient states her family doctor is treating her for gout in her hand. Jan, History of gout (ICD-10 - Z87.39) Jan, Other Gout material w as printed [email or web address] Other 08-09-2023 Evaluation note* Encounter Date Diagnosis Assessment Notes Treatment Notes Treatment Clinical Notes Sep, Right wrist pain (ICD-10 - M25.531) [email or web address] Other 04-27-2023 NoteCONSULTATION CONSULTATION DATE: 06/07/2022 TO: [...] our patients to inform us about any [id number] medications or herbal remedies/nutritional supplements/alternative remedies. 2. [...] treatment options with their primary care provider.[facility] [id number] Evaluation note * Encounter Date Diagnosis Assessment [...] understanding and is agreeable to treatment plan. [email or web address] Other 01-26-2023 NoteCONSULTATION PROCEDURE DATE: 03/08/2022 PREOPERATIVE [...] will be followed up in the clinic.[facility] [id number] NotePROCEDURE: XR KNEE LT 4V or > [...] Electronically authenticated by: PATTIE SALTER Date: 2022-02-16 11:29[facility]12-30-2022 NoteCONSULTATION CONSULTATION DATE: 02/09/2022 HISTORY [...] office today. Patient agrees with this plan.[id number] NotePROCEDURE: XR WRIST RT MIN 3 V COMPARISON: None. HISTORY: Injury of right wrist FINDINGS: BONES:No acute fracture or dislocation. Corticated bone fragment identified along the first carpometacarpal joint [degenerative in nature SOFT TISSUES:Moderate diffuse soft tissue swelling EFFUSION:None visible. OTHER: Negative. IMPRESSION: Soft tissue swelling, no acute fracture Electronically authenticated by: RYAN GOLDMAN Date: 2021-11-16 18:59[facility] [id number] NoteCONSULTATION CONSULTATION DATE: 11/01/2021 HISTORY OF PRESENT [...] otherwise indicated. Patient agrees with this plan.[facility] [id number] NoteCONSULTATION PROCEDURE DATE: 11/01/2021 PRE AND POSTOPERATIVE [...] will be followed up in the clinic.[facility] [id number] NoteCONSULTATION PROCEDURE DATE: 08/09/2021 PREOPERATIVE DIAGNOSIS: Bilateral [...] will be followed up in the clinic. [facility] Signed and Approved by: CRYS PIERCE . 08/10/2021 13:37:00[facility]06-08-2022 NoteCONSULTATION CONSULTATION DATE: 07/19/2021 HISTORY [...] injections. Patient acknowledges and all questions answered. [facility] Signed and Approved by: CRYS PIERCE . 07/20/2021 10:33:00[facility]05-25-2022 NotePROCEDURE: XR FOOT RT MIN [...] Electronically authenticated by: PATTIE SALTER Date: 2021-07-05 11:11[facility]05-10-2022 NoteCONSULTATION CONSULTATION DATE: 06/20/2021 CHIEF [...] like to proceed. CC: Jonathan Edwards M.D. [facility] Signed and Approved by: DR RICARDO HOLM . 06/27/2021 10:40:00[facility] Routine cervical smear Screening for malignant neoplasm of the cervix documented in this encounter [facility] Work Phone: evaluation note* Diagnosis Diabetic polyneuropathy associated with type 2 diabetes mellitus (CMS/HCC)- Primary documented in this encounter [facility] HealthcareEvaluation noteNo assessment information availableW[facility] Work Phone: Evaluation note* Diagnosis Encounter [...] diabetes mellitus (CMS/HCC) documented in this encounter [facility] HealthcareEvaluation note* Diagnosis Encounter for screening mammogram [...] chronicity, unspecified site documented in this encounter [facility] HealthcareEvaluation note* Diagnosis Encounter for screening [...] Tobacco use disorder documented in this encounter [facility] HealthcareEvaluation note* Diagnosis Encounter for screening [...] Essential hypertension Unspecified essential hypertension Other hyperlipidemia (CMS/[facility]) Snoring Other dyspnea and respiratory abnormality Mixed urge and stress incontinence Mixed incontinence urge and stress (male)(female) documented in this encounter [facility] HealthcareEvaluation note* Diagnosis Encounter for screening mammogram for breast cancer- Primary Encounter for screening for malignant neoplasm of colon Type 2 diabetes mellitus without complication, without long-term current use of insulin ([facility]/HCC) Upper respiratory tract infection, unspecified type URTI (acute upper respiratory infection) Acute upper respiratory infections of unspecified site Migraine with aura and without status migrainosus, not intractable (CMS/[facility])- Primary Type 2 diabetes mellitus without complication, [...] polyneuropathy associated with type 2 diabetes mellitus ([facility]) Gastroesophageal reflux disease without esophagitis Esophageal reflux Migraine with aura and without status migrainosus, not intractable ([facility]) Hospital discharge follow-up Other follow-up examination Type 2 diabetes mellitus with diabetic microalbuminuria, without long-term current use of insulin ([facility])- Primary Other hyperlipidemia ([facility]) Essential hypertension Unspecified essential hypertension Bilateral lower extremity edema Lumbar back pain- Primary Lumbago Hospital discharge follow-up Other follow-up examination Essential hypertension- Primary Unspecified essential hypertension Type 2 diabetes mellitus with diabetic microalbuminuria, without long-term current use of insulin ([facility]) Morbid (severe) obesity due to excess calories (E66.01) Other hyperlipidemia ([facility]) Lumbar back pain Lumbago Type 2 diabetes mellitus without complication, without long-term current use of insulin ([facility]) Diabetic polyneuropathy associated with type 2 diabetes mellitus ([facility]) Mixed urge and stress incontinence Mixed incontinence urge and stress (male)(female) Snoring Other dyspnea and respiratory abnormality Encounter for long-term (current) use of high-risk medication Encounter for long-term (current) use of other medications Type 2 diabetes mellitus with diabetic microalbuminuria, without long-term current use of insulin ([facility])- Primary Essential hypertension Unspecified essential hypertension Other hyperlipidemia ([facility]) Snoring Other dyspnea and respiratory abnormality Mixed urge and stress incontinence Mixed incontinence urge and stress (male)(female) Lumbar back pain Lumbago documented in this encounter [facility] HealthcareEvaluation note* Diagnosis Essential hypertension- Primary Unspecified essential hypertension Type 2 diabetes mellitus with diabetic microalbuminuria, without long-term current use of insulin ([facility]) Morbid (severe) obesity due to excess calories (E66.01) Other hyperlipidemia ([facility]) Lumbar back pain Lumbago Type 2 diabetes mellitus without complication, without long-term current use of insulin ([facility]) Diabetic polyneuropathy associated with type 2 diabetes mellitus ([facility]) Mixed urge and stress incontinence Mixed incontinence urge and stress (male)(female) Snoring Other dyspnea and respiratory abnormality documented in this encounter [facility] HealthcareEvaluation note* Diagnosis Gout, unspecified cause, unspecified chronicity, unspecified site documented in this encounter [facility]Evaluation note* Diagnosis Diabetic polyneuropathy associated with type 2 diabetes mellitus (CMS/HCC) documented in this encounter [facility] HealthcareEvaluation note* Diagnosis Encounter for screening mammogram [...] of insulin (CMS/HCC) documented in this encounter [facility] HealthcareEvaluation note* Diagnosis Encounter for screening mammogram [...] Other hyperlipidemia (CMS/HCC) documented in this encounter [facility] HealthcareEvaluation note* Diagnosis Encounter for screening mammogram [...] fracture presence (CMS/HCC) documented in this encounter [facility] HealthcareEvaluation note* Diagnosis Encounter for screening mammogram [...] with routine healing, subsequent encounter Other hyperlipidemia (CMS/[facility]) Hyperuricemia Other abnormal blood chemistry Osteoporosis, unspecified osteoporosis type, unspecified pathological fracture presence (CMS/[facility]) Diabetic polyneuropathy associated with type 2 [...] esophagitis Esophageal reflux documented in this encounter [facility] HealthcareEvaluation note* Diagnosis Encounter for screening mammogram [...] of insulin (CMS/HCC) documented in this encounter [facility] HealthcareEvaluation note* Diagnosis Encounter for screening mammogram [...] with routine healing, subsequent encounter Other hyperlipidemia ([facility]) Hyperuricemia Other abnormal blood chemistry Osteoporosis, unspecified osteoporosis type, unspecified pathological fracture presence (CMS/HCC) Diabetic polyneuropathy associated with type 2 diabetes mellitus (CMS/HCC) Gastroesophageal reflux disease without esophagitis Esophageal reflux Migraine with aura and without status migrainosus, not intractable (CMS/[facility]) Hospital discharge follow-up Other follow-up examination [...] complication, without long-term current use of insulin ([facility]) Diabetic polyneuropathy associated with type 2 diabetes mellitus (CMS/HCC) Mixed urge and stress incontinence Mixed incontinence urge and stress (male)(female) Snoring Other dyspnea and respiratory abnormality Encounter for long-term (current) use of high-risk medication Encounter for long-term (current) use of other medications Type 2 diabetes mellitus with diabetic microalbuminuria, without long-term current use of insulin ([facility]/HCC)- Primary Essential hypertension Unspecified essential hypertension Other hyperlipidemia (CMS/HCC) Snoring Other dyspnea and respiratory abnormality Mixed urge and stress incontinence Mixed incontinence urge and stress (male)(female) Upper respiratory infection with cough and congestion- Primary Lumbar back pain Lumbago Migraine with aura and without status migrainosus, not intractable ([facility]) Type 2 diabetes mellitus with diabetic microalbuminuria, without long-term current use of insulin ([facility]) Diabetic polyneuropathy associated with type 2 [...] of insulin (CMS/HCC) documented in this encounter [facility] HealthcareEvaluation note* Diagnosis Encounter for screening mammogram [...] of insulin (CMS/HCC) documented in this encounter [facility] HealthcareEvaluation note* Diagnosis Encounter for screening mammogram [...] complication, without long-term current use of insulin ([facility]) Back spasm Other symptoms referable to back Closed fracture of proximal end of left fibula with routine healing, unspecified fracture morphology, subsequent encounter Closed nondisplaced fracture of second metatarsal bone of left foot with routine healing, subsequent encounter Other hyperlipidemia ([facility]) Hyperuricemia Other abnormal blood chemistry Osteoporosis, unspecified osteoporosis type, unspecified pathological fracture presence (CMS/[facility]) Diabetic polyneuropathy associated with type 2 diabetes mellitus (CMS/[facility]) Gastroesophageal reflux disease without esophagitis Esophageal reflux Migraine with aura and without status migrainosus, not intractable ([facility]) Hospital discharge follow-up Other follow-up examination Type 2 diabetes mellitus with diabetic microalbuminuria, without long-term current use of insulin ([facility])- Primary Other hyperlipidemia (CMS/HCC) Essential hypertension Unspecified essential hypertension Bilateral lower extremity edema Lumbar back pain- Primary Lumbago Hospital discharge follow-up Other follow-up examination Essential hypertension- Primary Unspecified essential hypertension Type 2 diabetes mellitus with diabetic microalbuminuria, without long-term current use of insulin ([facility]) Morbid (severe) obesity due to excess calories (E66.01) Other hyperlipidemia (CMS/HCC) Lumbar back pain Lumbago Type 2 diabetes mellitus without complication, without long-term current use of insulin ([facility]) Diabetic polyneuropathy associated with type 2 diabetes mellitus ([facility]) Mixed urge and stress incontinence Mixed incontinence urge and stress (male)(female) Snoring Other dyspnea and respiratory abnormality Encounter for long-term (current) use of high-risk medication Encounter for long-term (current) use of other medications Type 2 diabetes mellitus with diabetic microalbuminuria, without long-term current use of insulin ([facility])- Primary Essential hypertension Unspecified essential hypertension Other hyperlipidemia (CMS/HCC) Snoring Other dyspnea and respiratory abnormality Mixed urge and stress incontinence Mixed incontinence urge and stress (male)(female) Upper respiratory infection with cough and congestion- Primary Lumbar back pain Lumbago Migraine with aura and without status migrainosus, not intractable ([facility]) Type 2 diabetes mellitus with diabetic [...] long-term current use of insulin (CMS/[facility]) Bilateral lower extremity edema- Primary documented in this encounter [facility] HealthcareEvaluation note* Diagnosis Encounter for screening mammogram [...] microalbuminuria, without long-term current use of insulin ([facility]/HCC)- Primary Other hyperlipidemia Essential hypertension Unspecified essential [...] diabetes mellitus (CMS/HCC) documented in this encounter [facility] HealthcareEvaluation note* Diagnosis Encounter for screening mammogram [...] unspecified osteoporosis type, unspecified pathological fracture presence ([facility]) Diabetic polyneuropathy associated with type 2 diabetes mellitus ([facility]) Gastroesophageal reflux disease without esophagitis Esophageal reflux Migraine with aura and without status migrainosus, not intractable ([facility]) Hospital discharge follow-up Other follow-up examination Type 2 diabetes mellitus with diabetic microalbuminuria, without long-term current use of insulin ([facility])- Primary Other hyperlipidemia Essential hypertension Unspecified essential hypertension Bilateral lower extremity edema Lumbar back pain- Primary Lumbago Hospital discharge follow-up Other follow-up examination Essential hypertension- Primary Unspecified essential hypertension Type 2 diabetes mellitus with diabetic microalbuminuria, without long-term current use of insulin ([facility]) Morbid (severe) obesity due to excess calories (E66.01) Other hyperlipidemia Lumbar back pain Lumbago Type 2 diabetes mellitus without complication, without long-term current use of insulin Diabetic polyneuropathy associated with type 2 diabetes mellitus ([facility]) Mixed urge and stress incontinence Mixed incontinence urge and stress (male)(female) Snoring Other dyspnea and respiratory abnormality Encounter for long-term (current) use of high-risk medication Encounter for long-term (current) use of other medications Type 2 diabetes mellitus with diabetic microalbuminuria, without long-term current use of insulin ([facility])- Primary Essential hypertension Unspecified essential hypertension Other hyperlipidemia Snoring Other dyspnea and respiratory abnormality Mixed urge and stress incontinence Mixed incontinence urge and stress (male)(female) Type 2 diabetes mellitus with diabetic microalbuminuria, without long-term current use of insulin ([facility])- Primary Essential hypertension Unspecified essential hypertension Other hyperlipidemia JANETT (obstructive sleep apnea) Obstructive sleep apnea (adult) (pediatric) Type 2 diabetes mellitus without complication, without long-term current use of insulin Type 2 diabetes mellitus with diabetic microalbuminuria, without long-term current use of insulin ([facility])- Primary Morbid (severe) obesity due to excess [...] (CMS/HCC) Hypercalcemia- Primary documented in this encounter [facility] HealthcareEvaluation note* Diagnosis Encounter for screening mammogram [...] long-term current use of insulin (CMS/[facility])- Primary Essential hypertension Unspecified essential hypertension Other hyperlipidemia Snoring Other dyspnea and respiratory abnormality Mixed urge and stress incontinence Mixed incontinence urge and stress (male)(female) Type 2 diabetes mellitus with diabetic microalbuminuria, without long-term current use of insulin ([facility])- Primary Essential hypertension Unspecified essential hypertension [...] microalbuminuria, without long-term current use of insulin ([facility])- Primary Morbid (severe) obesity due to excess calories (CMS/HCC) Other hyperlipidemia Body mass index (BMI) 39.0-39.9, adult JANETT (obstructive sleep apnea) Obstructive sleep apnea (adult) (pediatric) Bilateral lower extremity edema Migraine with aura and without status migrainosus, not intractable (CMS/[facility]) Cigarette nicotine dependence without complication Hypercalcemia Essential hypertension Unspecified essential hypertension Elevated blood uric acid level Lumbar back pain Lumbago Gastroesophageal reflux disease without esophagitis Esophageal reflux Chronic gout of multiple sites, unspecified cause Acute pain of right knee Diabetic polyneuropathy associated with type 2 diabetes mellitus (CMS/HCC) documented in this encounter [facility] HealthcareEvaluation note* Diagnosis Encounter for screening mammogram [...] unspecified osteoporosis type, unspecified pathological fracture presence (CMS/[facility]) Diabetic polyneuropathy associated with type 2 diabetes mellitus (CMS/HCC) Gastroesophageal reflux disease without esophagitis Esophageal reflux Migraine with aura and without status migrainosus, not intractable (CMS/HCC) Hospital discharge follow-up Other follow-up examination Type 2 diabetes mellitus with diabetic microalbuminuria, without long-term current use of insulin ([facility])- Primary Other hyperlipidemia Essential hypertension Unspecified essential hypertension Bilateral lower extremity edema Lumbar back pain- Primary Lumbago Hospital discharge follow-up Other follow-up examination Essential hypertension- Primary Unspecified essential hypertension Type 2 diabetes mellitus with diabetic microalbuminuria, without long-term current use of insulin ([facility]) Morbid (severe) obesity due to excess calories (E66.01) Other hyperlipidemia Lumbar back pain Lumbago Type 2 diabetes mellitus without complication, without long-term current use of insulin Diabetic polyneuropathy associated with type 2 diabetes mellitus ([facility]) Mixed urge and stress incontinence Mixed incontinence urge and stress (male)(female) Snoring Other dyspnea and respiratory abnormality Encounter for long-term (current) use of high-risk medication Encounter for long-term (current) use of other medications Type 2 diabetes mellitus with diabetic microalbuminuria, without long-term current use of insulin ([facility])- Primary Essential hypertension Unspecified essential hypertension Other hyperlipidemia Snoring Other dyspnea and respiratory abnormality Mixed urge and stress incontinence Mixed incontinence urge and stress (male)(female) Type 2 diabetes mellitus with diabetic microalbuminuria, without long-term current use of insulin ([facility])- Primary Essential hypertension Unspecified essential hypertension [...] parathyroid hormone (PTH) documented in this encounter [facility] HealthcareEvaluation note* Diagnosis Encounter for screening mammogram [...] other sinus- Primary documented in this encounter [facility] HealthcareEvaluation note* Diagnosis Encounter for screening mammogram [...] microalbuminuria, without long-term current use of insulin ([facility]/HCC)- Primary Essential hypertension Unspecified essential hypertension [...] diabetes mellitus (CMS/HCC) documented in this encounter [facility] HealthcareEvaluation note* Diagnosis Encounter for screening mammogram [...] aura and without status migrainosus, not intractable ([facility]) Hospital discharge follow-up Other follow-up examination Type 2 diabetes mellitus with diabetic microalbuminuria, without long-term current use of insulin ([facility])- Primary Other hyperlipidemia Essential hypertension Unspecified essential hypertension Bilateral lower extremity edema Lumbar back pain- Primary Lumbago Hospital discharge follow-up Other follow-up examination Essential hypertension- Primary Unspecified essential hypertension Type 2 diabetes mellitus with diabetic microalbuminuria, without long-term current use of insulin ([facility]) Morbid (severe) obesity due to excess calories (E66.01) Other hyperlipidemia Lumbar back pain Lumbago Type 2 diabetes mellitus without complication, without long-term current use of insulin Diabetic polyneuropathy associated with type 2 diabetes mellitus ([facility]) Mixed urge and stress incontinence Mixed incontinence urge and stress (male)(female) Snoring Other dyspnea and respiratory abnormality Encounter for long-term (current) use of high-risk medication Encounter for long-term (current) use of other medications Type 2 diabetes mellitus with diabetic microalbuminuria, without long-term current use of insulin ([facility])- Primary Essential hypertension Unspecified essential hypertension Other hyperlipidemia Snoring Other dyspnea and respiratory abnormality Mixed urge and stress incontinence Mixed incontinence urge and stress (male)(female) Type 2 diabetes mellitus with diabetic microalbuminuria, without long-term current use of insulin ([facility])- Primary Essential hypertension Unspecified essential hypertension Other hyperlipidemia JANETT (obstructive sleep apnea) Obstructive sleep apnea (adult) (pediatric) Type 2 diabetes mellitus without complication, without long-term current use of insulin Type 2 diabetes mellitus with diabetic microalbuminuria, without long-term current use of insulin ([facility])- Primary Morbid (severe) obesity due to excess calories ([facility]) Other hyperlipidemia Body mass index (BMI) 39.0-39.9, adult JANETT (obstructive sleep apnea) Obstructive sleep apnea (adult) (pediatric) Bilateral lower extremity edema Migraine with aura and without status migrainosus, not intractable (CMS/[facility]) Cigarette nicotine dependence without complication Hypercalcemia Essential hypertension Unspecified essential hypertension Elevated blood uric acid level Lumbar back pain Lumbago Gastroesophageal reflux disease without esophagitis Esophageal reflux Chronic gout of multiple sites, unspecified cause Acute pain of right knee Diabetic polyneuropathy associated with type 2 diabetes mellitus ([facility]) Type 2 diabetes mellitus with diabetic microalbuminuria, without long-term current use of insulin ([facility]) documented in this encounter [facility] HealthcareEvaluation note* Diagnosis Encounter for screening mammogram [...] associated with type 2 diabetes mellitus (CMS/HCC) Low serum parathyroid hormone (PTH)- Primary documented in this encounter [facility] HealthcareEvaluation note* Diagnosis Encounter for screening mammogram for breast cancer- Primary Encounter for screening for malignant neoplasm of colon Type 2 diabetes mellitus without complication, without long-term current use of insulin (HCC) Upper respiratory tract infection, unspecified type URTI (acute upper respiratory infection) Acute upper respiratory infections of unspecified site Migraine with aura and without status migrainosus, not intractable- Primary Type 2 diabetes mellitus without complication, without long-term current use of insulin (HCC) Morbid (severe) obesity due to excess calories (E66.01) Body mass index [BMI] 40.0-44.9, adult (Z68.41) Essential hypertension Unspecified essential hypertension Essential hypertension- Primary Unspecified essential hypertension Type 2 diabetes mellitus without complication, without long-term current use of insulin (HCC) Back spasm Other symptoms referable to back Closed fracture of proximal end of left fibula with routine healing, unspecified fracture morphology, subsequent encounter Closed nondisplaced fracture of second metatarsal bone of left foot with routine healing, subsequent encounter Other hyperlipidemia Hyperuricemia Other abnormal blood chemistry Osteoporosis, unspecified osteoporosis type, unspecified pathological fracture presence Diabetic polyneuropathy associated with type 2 diabetes mellitus (HCC) Gastroesophageal reflux disease without esophagitis Esophageal reflux Migraine with aura and without status migrainosus, not intractable Hospital discharge follow-up Other follow-up examination Type 2 diabetes mellitus with diabetic microalbuminuria, without long-term current use of insulin ([facility])- Primary Other hyperlipidemia Essential hypertension Unspecified essential hypertension Bilateral lower extremity edema Lumbar back pain- Primary Lumbago Hospital discharge follow-up Other follow-up examination Essential hypertension- Primary Unspecified essential hypertension Type 2 diabetes mellitus with diabetic microalbuminuria, without long-term current use of insulin ([facility]) Morbid (severe) obesity due to excess calories (E66.01) Other hyperlipidemia Lumbar back pain Lumbago Type 2 diabetes mellitus without complication, without long-term current use of insulin ([facility]) Diabetic polyneuropathy associated with type 2 diabetes mellitus ([facility]) Mixed urge and stress incontinence Mixed incontinence urge and stress (male)(female) Snoring Other dyspnea and respiratory abnormality Encounter for long-term (current) use of high-risk medication Encounter for long-term (current) use of other medications Type 2 diabetes mellitus with diabetic microalbuminuria, without long-term current use of insulin ([facility])- Primary Essential hypertension Unspecified essential hypertension Other hyperlipidemia Snoring Other dyspnea and respiratory abnormality Mixed urge and stress incontinence Mixed incontinence urge and stress (male)(female) Type 2 diabetes mellitus with diabetic microalbuminuria, without long-term current use of insulin ([facility])- Primary Essential hypertension Unspecified essential hypertension Other hyperlipidemia JANETT (obstructive sleep apnea) Obstructive sleep apnea (adult) (pediatric) Type 2 diabetes mellitus without complication, without long-term current use of insulin ([facility]) Type 2 diabetes mellitus with diabetic microalbuminuria, without long-term current use of insulin ([facility])- Primary Morbid (severe) obesity due to excess calories ([facility]) Other hyperlipidemia Body mass index (BMI) 39.0-39.9, adult JANETT (obstructive sleep apnea) Obstructive sleep apnea (adult) (pediatric) Bilateral lower extremity edema Migraine with aura and without status migrainosus, not intractable Cigarette nicotine dependence without complication Hypercalcemia Essential hypertension Unspecified essential hypertension Elevated blood uric acid level Lumbar back pain Lumbago Gastroesophageal reflux disease without esophagitis Esophageal reflux Chronic gout of multiple sites, unspecified cause Acute pain of right knee Diabetic polyneuropathy associated with type 2 diabetes mellitus ([facility]) Lumbar back pain Lumbago documented in this encounter [facility] HealthcareEvaluation note* Diagnosis Encounter for screening mammogram for breast cancer- Primary Encounter for screening for malignant neoplasm of colon Type 2 diabetes mellitus without complication, without long-term current use of insulin (HCC) Upper respiratory tract infection, unspecified type URTI (acute upper respiratory infection) Acute upper respiratory infections of unspecified site Migraine with aura and without status migrainosus, not intractable- Primary Type 2 diabetes mellitus without complication, without long-term current use of insulin (HCC) Morbid (severe) obesity due to excess calories (E66.01) Body mass index [BMI] 40.0-44.9, adult (Z68.41) Essential hypertension Unspecified essential hypertension Essential hypertension- Primary Unspecified essential hypertension Type 2 diabetes mellitus without complication, without long-term current use of insulin (HCC) Back spasm Other symptoms referable to back Closed fracture of proximal end of left fibula with routine healing, unspecified fracture morphology, subsequent encounter Closed nondisplaced fracture of second metatarsal bone of left foot with routine healing, subsequent encounter Other hyperlipidemia Hyperuricemia Other abnormal blood chemistry Osteoporosis, unspecified osteoporosis type, unspecified pathological fracture presence Diabetic polyneuropathy associated with type 2 diabetes mellitus (HCC) Gastroesophageal reflux disease without esophagitis Esophageal reflux Migraine with aura and without status migrainosus, not intractable Hospital discharge follow-up Other follow-up examination Type 2 diabetes mellitus with diabetic microalbuminuria, without long-term current use of insulin (HCC)- Primary Other hyperlipidemia Essential hypertension Unspecified essential hypertension Bilateral lower extremity edema Lumbar back pain- Primary [place] Hospital discharge follow-up Other follow-up examination Essential hypertension- Primary Unspecified essential hypertension Type 2 diabetes mellitus with diabetic microalbuminuria, without long-term current use of insulin (HCC) Morbid (severe) obesity due to excess calories (E66.01) Other hyperlipidemia Lumbar back pain Lumbago Type 2 diabetes mellitus without complication, without long-term current use of insulin (HCC) Diabetic polyneuropathy associated with type 2 diabetes mellitus (HCC) Mixed urge and stress incontinence Mixed incontinence urge and stress (male)(female) Snoring Other dyspnea and respiratory abnormality Encounter for long-term (current) use of high-risk medication Encounter for long-term (current) use of other medications Type 2 diabetes mellitus with diabetic microalbuminuria, without long-term current use of insulin (HCC)- Primary Essential hypertension Unspecified essential hypertension Other hyperlipidemia Snoring Other dyspnea and respiratory abnormality Mixed urge and stress incontinence Mixed incontinence urge and stress (male)(female) Type 2 diabetes mellitus with diabetic microalbuminuria, without long-term current use of insulin (HCC)- Primary Essential hypertension Unspecified essential hypertension Other hyperlipidemia JANETT (obstructive sleep apnea) Obstructive sleep apnea (adult) (pediatric) Type 2 diabetes mellitus without complication, without long-term current use of insulin (HCC) Type 2 diabetes mellitus with diabetic microalbuminuria, without long-term current use of insulin (HCC)- Primary Morbid (severe) obesity due to excess calories ([facility]) Other hyperlipidemia Body mass index (BMI) 39.0-39.9, adult JANETT (obstructive sleep apnea) Obstructive sleep apnea (adult) (pediatric) Bilateral lower extremity edema Migraine with aura and without status migrainosus, not intractable Cigarette nicotine dependence without complication Hypercalcemia Essential hypertension Unspecified essential hypertension Elevated blood uric acid level Lumbar back pain Lumbago Gastroesophageal reflux disease without esophagitis Esophageal reflux Chronic gout of multiple sites, unspecified cause Acute pain of right knee Diabetic polyneuropathy associated with type 2 diabetes mellitus (HCC) Hypercalcemia- Primary Low serum parathyroid hormone (PTH) Vitamin D deficiency documented in this encounter [facility] HealthcareEvaluation note* Diagnosis Encounter for screening mammogram for breast cancer- Primary Encounter for screening for malignant neoplasm of colon Type 2 diabetes mellitus without complication, without long-term current use of insulin (HCC) Upper respiratory tract infection, unspecified type URTI (acute upper respiratory infection) Acute upper respiratory infections of unspecified site Migraine with aura and without status migrainosus, not intractable- Primary Type 2 diabetes mellitus without complication, without long-term current use of insulin (HCC) Morbid (severe) obesity due to excess calories (E66.01) Body mass index [BMI] 40.0-44.9, adult (Z68.41) Essential hypertension Unspecified essential hypertension Essential hypertension- Primary Unspecified essential hypertension Type 2 diabetes mellitus without complication, without long-term current use of insulin (HCC) Back spasm Other symptoms referable to back Closed fracture of proximal end of left fibula with routine healing, unspecified fracture morphology, subsequent encounter Closed nondisplaced fracture of second metatarsal bone of left foot with routine healing, subsequent encounter Other hyperlipidemia Hyperuricemia Other abnormal blood chemistry Osteoporosis, unspecified osteoporosis type, unspecified pathological fracture presence Diabetic polyneuropathy associated with type 2 diabetes mellitus (HCC) Gastroesophageal reflux disease without esophagitis Esophageal reflux Migraine with aura and without status migrainosus, not intractable Hospital discharge follow-up Other follow-up examination Type 2 diabetes mellitus with diabetic microalbuminuria, without long-term current use of insulin ([facility])- Primary Other hyperlipidemia Essential hypertension Unspecified essential hypertension Bilateral lower extremity edema Lumbar back pain- Primary [place]ago Hospital discharge follow-up Other follow-up examination Essential hypertension- Primary Unspecified essential hypertension Type 2 diabetes mellitus with diabetic microalbuminuria, without long-term current use of insulin ([facility]) Morbid (severe) obesity due to excess calories (E66.01) Other hyperlipidemia Lumbar back pain Lumbago Type 2 diabetes mellitus without complication, without long-term current use of insulin ([facility]) Diabetic polyneuropathy associated with type 2 diabetes mellitus ([facility]) Mixed urge and stress incontinence Mixed incontinence urge and stress (male)(female) Snoring Other dyspnea and respiratory abnormality Encounter for long-term (current) use of high-risk medication Encounter for long-term (current) use of other medications Type 2 diabetes mellitus with diabetic microalbuminuria, without long-term current use of insulin ([facility])- Primary Essential hypertension Unspecified essential hypertension Other hyperlipidemia Snoring Other dyspnea and respiratory abnormality Mixed urge and stress incontinence Mixed incontinence urge and stress (male)(female) Type 2 diabetes mellitus with diabetic microalbuminuria, without long-term current use of insulin ([facility])- Primary Essential hypertension Unspecified essential hypertension Other hyperlipidemia JANETT (obstructive sleep apnea) Obstructive sleep apnea (adult) (pediatric) Type 2 diabetes mellitus without complication, without long-term current use of insulin ([facility]) Type 2 diabetes mellitus with diabetic microalbuminuria, without long-term current use of insulin ([facility])- Primary Morbid (severe) obesity due to excess calories ([facility]) Other hyperlipidemia Body mass index (BMI) 39.0-39.9, adult JANETT (obstructive sleep apnea) Obstructive sleep apnea (adult) (pediatric) Bilateral lower extremity edema Migraine with aura and without status migrainosus, not intractable Cigarette nicotine dependence without complication Hypercalcemia Essential hypertension Unspecified essential hypertension Elevated blood uric acid level Lumbar back pain Lumbago Gastroesophageal reflux disease without esophagitis Esophageal reflux Chronic gout of multiple sites, unspecified cause Acute pain of right knee Diabetic polyneuropathy associated with type 2 diabetes mellitus ([facility]) Lumbar back pain Lumbago documented in this encounter [facility]Evaluation note* Diagnosis Encounter for screening mammogram for breast cancer- Primary Encounter for screening for malignant neoplasm of colon Type 2 diabetes mellitus without complication, without long-term current use of insulin (HCC) Upper respiratory tract infection, unspecified type URTI (acute upper respiratory infection) Acute upper respiratory infections of unspecified site Migraine with aura and without status migrainosus, not intractable- Primary Type 2 diabetes mellitus without complication, without long-term current use of insulin (HCC) Morbid (severe) obesity due to excess calories (E66.01) Body mass index [BMI] 40.0-44.9, adult (Z68.41) Essential hypertension Unspecified essential hypertension Essential hypertension- Primary Unspecified essential hypertension Type 2 diabetes mellitus without complication, without long-term current use of insulin (HCC) Back spasm Other symptoms referable to back Closed fracture of proximal end of left fibula with routine healing, unspecified fracture morphology, subsequent encounter Closed nondisplaced fracture of second metatarsal bone of left foot with routine healing, subsequent encounter Other hyperlipidemia Hyperuricemia Other abnormal blood chemistry Osteoporosis, unspecified osteoporosis type, unspecified pathological fracture presence Diabetic polyneuropathy associated with type 2 diabetes mellitus (HCC) Gastroesophageal reflux disease without esophagitis Esophageal reflux Migraine with aura and without status migrainosus, not intractable Hospital discharge follow-up Other follow-up examination Type 2 diabetes mellitus with diabetic microalbuminuria, without long-term current use of insulin (HCC)- Primary Other hyperlipidemia Essential hypertension Unspecified essential hypertension Bilateral lower extremity edema Lumbar back pain- Primary [place]ago Hospital discharge follow-up Other follow-up examination Essential hypertension- Primary Unspecified essential hypertension Type 2 diabetes mellitus with diabetic microalbuminuria, without long-term current use of insulin (HCC) Morbid (severe) obesity due to excess calories (E66.01) Other hyperlipidemia Lumbar back pain Lumbago Type 2 diabetes mellitus without complication, without long-term current use of insulin (HCC) Diabetic polyneuropathy associated with type 2 diabetes mellitus (HCC) Mixed urge and stress incontinence Mixed incontinence urge and stress (male)(female) Snoring Other dyspnea and respiratory abnormality Encounter for long-term (current) use of high-risk medication Encounter for long-term (current) use of other medications Type 2 diabetes mellitus with diabetic microalbuminuria, without long-term current use of insulin (HCC)- Primary Essential hypertension Unspecified essential hypertension Other hyperlipidemia Snoring Other dyspnea and respiratory abnormality Mixed urge and stress incontinence Mixed incontinence urge and stress (male)(female) Type 2 diabetes mellitus with diabetic microalbuminuria, without long-term current use of insulin (HCC)- Primary Essential hypertension Unspecified essential hypertension Other hyperlipidemia JANETT (obstructive sleep apnea) Obstructive sleep apnea (adult) (pediatric) Type 2 diabetes mellitus without complication, without long-term current use of insulin (HCC) Type 2 diabetes mellitus with diabetic microalbuminuria, without long-term current use of insulin (HCC)- Primary Morbid (severe) obesity due to excess calories ([facility]) Other hyperlipidemia Body mass index (BMI) 39.0-39.9, adult JANETT (obstructive sleep apnea) Obstructive sleep apnea (adult) (pediatric) Bilateral lower extremity edema Migraine with aura and without status migrainosus, not intractable Cigarette nicotine dependence without complication Hypercalcemia Essential hypertension Unspecified essential hypertension Elevated blood uric acid level Lumbar back pain Lumbago Gastroesophageal reflux disease without esophagitis Esophageal reflux Chronic gout of multiple sites, unspecified cause Acute pain of right knee Diabetic polyneuropathy associated with type 2 diabetes mellitus (HCC) Chronic gout of multiple sites, unspecified cause- Primary documented in this encounter [facility] HealthcareEvaluation note* Diagnosis Encounter for screening mammogram for breast cancer- Primary Encounter for screening for malignant neoplasm of colon Type 2 diabetes mellitus without complication, without long-term current use of insulin (HCC) Upper respiratory tract infection, unspecified type URTI (acute upper respiratory infection) Acute upper respiratory infections of unspecified site Migraine with aura and without status migrainosus, not intractable- Primary Type 2 diabetes mellitus without complication, without long-term current use of insulin (HCC) Morbid (severe) obesity due to excess calories (E66.01) Body mass index [BMI] 40.0-44.9, adult (Z68.41) Essential hypertension Unspecified essential hypertension Essential hypertension- Primary Unspecified essential hypertension Type 2 diabetes mellitus without complication, without long-term current use of insulin (HCC) Back spasm Other symptoms referable to back Closed fracture of proximal end of left fibula with routine healing, unspecified fracture morphology, subsequent encounter Closed nondisplaced fracture of second metatarsal bone of left foot with routine healing, subsequent encounter Other hyperlipidemia Hyperuricemia Other abnormal blood chemistry Osteoporosis, unspecified osteoporosis type, unspecified pathological fracture presence Diabetic polyneuropathy associated with type 2 diabetes mellitus (HCC) Gastroesophageal reflux disease without esophagitis Esophageal reflux Migraine with aura and without status migrainosus, not intractable Hospital discharge follow-up Other follow-up examination Type 2 diabetes mellitus with diabetic microalbuminuria, without long-term current use of insulin (HCC)- Primary Other hyperlipidemia Essential hypertension Unspecified essential hypertension Bilateral lower extremity edema Lumbar back pain- Primary [place]ago Hospital discharge follow-up Other follow-up examination Essential hypertension- Primary Unspecified essential hypertension Type 2 diabetes mellitus with diabetic microalbuminuria, without long-term current use of insulin ([facility]) Morbid (severe) obesity due to excess calories (E66.01) Other hyperlipidemia Lumbar back pain Lumbago Type 2 diabetes mellitus without complication, without long-term current use of insulin ([facility]) Diabetic polyneuropathy associated with type 2 diabetes mellitus (HCC) Mixed urge and stress incontinence Mixed incontinence urge and stress (male)(female) Snoring Other dyspnea and respiratory abnormality Encounter for long-term (current) use of high-risk medication Encounter for long-term (current) use of other medications Type 2 diabetes mellitus with diabetic microalbuminuria, without long-term current use of insulin ([facility])- Primary Essential hypertension Unspecified essential hypertension Other hyperlipidemia Snoring Other dyspnea and respiratory abnormality Mixed urge and stress incontinence Mixed incontinence urge and stress (male)(female) Type 2 diabetes mellitus with diabetic microalbuminuria, without long-term current use of insulin ([facility])- Primary Essential hypertension Unspecified essential hypertension Other hyperlipidemia JANETT (obstructive sleep apnea) Obstructive sleep apnea (adult) (pediatric) Type 2 diabetes mellitus without complication, without long-term current use of insulin ([facility]) Type 2 diabetes mellitus with diabetic microalbuminuria, without long-term current use of insulin ([facility])- Primary Morbid (severe) obesity due to excess calories ([facility]) Other hyperlipidemia Body mass index (BMI) 39.0-39.9, adult JANETT (obstructive sleep apnea) Obstructive sleep apnea (adult) (pediatric) Bilateral lower extremity edema Migraine with aura and without status migrainosus, not intractable Cigarette nicotine dependence without complication Hypercalcemia Essential hypertension Unspecified essential hypertension Elevated blood uric acid level Lumbar back pain Lumbago Gastroesophageal reflux disease without esophagitis Esophageal reflux Chronic gout of multiple sites, unspecified cause Acute pain of right knee Diabetic polyneuropathy associated with type 2 diabetes mellitus (HCC) Type 2 diabetes mellitus with diabetic microalbuminuria, without long-term current use of insulin (HCC) documented in this encounter [facility]* Diagnosis Encounter for screening mammogram for breast cancer- Primary Encounter for screening for malignant neoplasm of colon Type 2 diabetes mellitus without complication, without long-term current use of insulin (HCC) Upper respiratory tract infection, unspecified type URTI (acute upper respiratory infection) Acute upper respiratory infections of unspecified site Migraine with aura and without status migrainosus, not intractable- Primary Type 2 diabetes mellitus without complication, without long-term current use of insulin (HCC) Morbid (severe) obesity due to excess calories (E66.01) Body mass index [BMI] 40.0-44.9, adult (Z68.41) Essential hypertension Unspecified essential hypertension Essential hypertension- Primary Unspecified essential hypertension Type 2 diabetes mellitus without complication, without long-term current use of insulin (HCC) Back spasm Other symptoms referable to back Closed fracture of proximal end of left fibula with routine healing, unspecified fracture morphology, subsequent encounter Closed nondisplaced fracture of second metatarsal bone of left foot with routine healing, subsequent encounter Other hyperlipidemia Hyperuricemia Other abnormal blood chemistry Osteoporosis, unspecified osteoporosis type, unspecified pathological fracture presence Diabetic polyneuropathy associated with type 2 diabetes mellitus (HCC) Gastroesophageal reflux disease without esophagitis Esophageal reflux Migraine with aura and without status migrainosus, not intractable Hospital discharge follow-up Other follow-up examination Type 2 diabetes mellitus with diabetic microalbuminuria, without long-term current use of insulin (HCC)- Primary Other hyperlipidemia Essential hypertension Unspecified essential hypertension Bilateral lower extremity edema Lumbar back pain- Primary Lumbago Hospital discharge follow-up Other follow-up examination Essential hypertension- Primary Unspecified essential hypertension Type 2 diabetes mellitus with diabetic microalbuminuria, without long-term current use of insulin (HCC) Morbid (severe) obesity due to excess calories (E66.01) Other hyperlipidemia Lumbar back pain Lumbago Type 2 diabetes mellitus without complication, without long-term current use of insulin (HCC) Diabetic polyneuropathy associated with type 2 diabetes mellitus (HCC) Mixed urge and stress incontinence Mixed incontinence urge and stress (male)(female) Snoring Other dyspnea and respiratory abnormality Encounter for long-term (current) use of high-risk medication Encounter for long-term (current) use of other medications Type 2 diabetes mellitus with diabetic microalbuminuria, without long-term current use of insulin (HCC)- Primary Essential hypertension Unspecified essential hypertension Other hyperlipidemia Snoring Other dyspnea and respiratory abnormality Mixed urge and stress incontinence Mixed incontinence urge and stress (male)(female) Type 2 diabetes mellitus with diabetic microalbuminuria, without long-term current use of insulin ([facility])- Primary Essential hypertension Unspecified essential hypertension Other hyperlipidemia JANETT (obstructive sleep apnea) Obstructive sleep apnea (adult) (pediatric) Type 2 diabetes mellitus without complication, without long-term current use of insulin (HCC) Type 2 diabetes mellitus with diabetic microalbuminuria, without long-term current use of insulin ([facility])- Primary Morbid (severe) obesity due to excess calories ([facility]) Other hyperlipidemia Body mass index (BMI) 39.0-39.9, adult JANETT (obstructive sleep apnea) Obstructive sleep apnea (adult) (pediatric) Bilateral lower extremity edema Migraine with aura and without status migrainosus, not intractable Cigarette nicotine dependence without complication Hypercalcemia Essential hypertension Unspecified essential hypertension Elevated blood uric acid level Lumbar back pain Lumbago Gastroesophageal reflux disease without esophagitis Esophageal reflux Chronic gout of multiple sites, unspecified cause Acute pain of right knee Diabetic polyneuropathy associated with type 2 diabetes mellitus (HCC) Type 2 diabetes mellitus with diabetic microalbuminuria, without long-term current use of insulin ([facility])- Primary Essential hypertension Unspecified essential hypertension Morbid (severe) obesity due to excess calories (E66.01) Cigarette nicotine dependence without complication Chronic gout of multiple sites, unspecified cause Gastroesophageal reflux disease without esophagitis Esophageal reflux Bilateral lower extremity edema documented in this encounter [facility] HealthcareEvaluation note* Diagnosis Encounter for screening mammogram for breast cancer- Primary Encounter for screening for malignant neoplasm of colon Type 2 diabetes mellitus without complication, without long-term current use of insulin ([facility]) Upper respiratory tract infection, unspecified type URTI (acute upper respiratory infection) Acute upper respiratory infections of unspecified site Migraine with aura and without status migrainosus, not intractable- Primary Type 2 diabetes mellitus without complication, without long-term current use of insulin ([facility]) Morbid (severe) obesity due to excess calories (E66.01) Body mass index [BMI] 40.0-44.9, adult (Z68.41) Essential hypertension Unspecified essential hypertension Essential hypertension- Primary Unspecified essential hypertension Type 2 diabetes mellitus without complication, without long-term current use of insulin ([facility]) Back spasm Other symptoms referable to back Closed fracture of proximal end of left fibula with routine healing, unspecified fracture morphology, subsequent encounter Closed nondisplaced fracture of second metatarsal bone of left foot with routine healing, subsequent encounter Other hyperlipidemia Hyperuricemia Other abnormal blood chemistry Osteoporosis, unspecified osteoporosis type, unspecified pathological fracture presence Diabetic polyneuropathy associated with type 2 diabetes mellitus ([facility]) Gastroesophageal reflux disease without esophagitis Esophageal reflux Migraine with aura and without status migrainosus, not intractable Hospital discharge follow-up Other follow-up examination Type 2 diabetes mellitus with diabetic microalbuminuria, without long-term current use of insulin ([facility])- Primary Other hyperlipidemia Essential hypertension Unspecified essential hypertension Bilateral lower extremity edema Lumbar back pain- Primary Lumbago Hospital discharge follow-up Other follow-up examination Essential hypertension- Primary Unspecified essential hypertension Type 2 diabetes mellitus with diabetic microalbuminuria, without long-term current use of insulin ([facility]) Morbid (severe) obesity due to excess calories (E66.01) Other hyperlipidemia Lumbar back pain Lumbago Type 2 diabetes mellitus without complication, without long-term current use of insulin ([facility]) Diabetic polyneuropathy associated with type 2 diabetes mellitus ([facility]) Mixed urge and stress incontinence Mixed incontinence urge and stress (male)(female) Snoring Other dyspnea and respiratory abnormality Encounter for long-term (current) use of high-risk medication Encounter for long-term (current) use of other medications Type 2 diabetes mellitus with diabetic microalbuminuria, without long-term current use of insulin ([facility])- Primary Essential hypertension Unspecified essential hypertension Other hyperlipidemia Snoring Other dyspnea and respiratory abnormality Mixed urge and stress incontinence Mixed incontinence urge and stress (male)(female) Type 2 diabetes mellitus with diabetic microalbuminuria, without long-term current use of insulin ([facility])- Primary Essential hypertension Unspecified essential hypertension Other hyperlipidemia JANETT (obstructive sleep apnea) Obstructive sleep apnea (adult) (pediatric) Type 2 diabetes mellitus without complication, without long-term current use of insulin ([facility]) Type 2 diabetes mellitus with diabetic microalbuminuria, without long-term current use of insulin ([facility])- Primary Morbid (severe) obesity due to excess calories ([facility]) Other hyperlipidemia Body mass index (BMI) 39.0-39.9, adult JANETT (obstructive sleep apnea) Obstructive sleep apnea (adult) (pediatric) Bilateral lower extremity edema Migraine with aura and without status migrainosus, not intractable Cigarette nicotine dependence without complication Hypercalcemia Essential hypertension Unspecified essential hypertension Elevated blood uric acid level Lumbar back pain Lumbago Gastroesophageal reflux disease without esophagitis Esophageal reflux Chronic gout of multiple sites, unspecified cause Acute pain of right knee Diabetic polyneuropathy associated with type 2 diabetes mellitus (HCC) Type 2 diabetes mellitus with diabetic microalbuminuria, without long-term current use of insulin (HCC)- Primary Essential hypertension Unspecified essential hypertension Morbid (severe) obesity due to excess calories (E66.01) Cigarette nicotine dependence without complication Chronic gout of multiple sites, unspecified cause Gastroesophageal reflux disease without esophagitis Esophageal reflux Bilateral lower extremity edema Bilateral lower extremity edema Migraine with aura and without status migrainosus, not intractable Type 2 diabetes mellitus with diabetic microalbuminuria, without long-term current use of insulin (HCC) Osteoporosis, unspecified osteoporosis type, unspecified pathological fracture presence documented in this encounter [facility] general Narrative - Reported* Type Description Date Medical History GERD (gastroesophageal reflux di sease) Medical History Migraine headache Medical History Arthritis Medical History Edema of both legs Medical History Diabetes mellitus, type 2 Medical History Chronic back pain Surgical History ablasion Surgical History back surgery Surgical History hysterectomy Surgical History tubal ligation Hospitalization History see above [email or web address] Other Reason for referral (narrative)* Consultation (Routine) - Pending Review Specialty Diagnoses / Procedures Referred By Darren acharya Referred To Contact Neurology Diagnoses Snoring Procedures [place] OFFICE/OUTPATIENT NEW HIGH MDM 60 MINUTES Sonam Draek NP [address] [place] [address] Sivan Banda DO [address] [place] [address] Referral ID Status Reason Start Date Expiration Date Visits Requested Visits Authorized [id number] Pending Review Specialty Services Required 10/03/2023 03/31/2024 1 1 Scheduling Instructions Please include OV note from today * Consultation (Routine) - Pending Review Specialty Diagnoses / Procedures Referred By Darren acharya Referred To Contact Urology Diagnoses Mixed urge and stress incontinence Procedures [place] OFFICE/OUTPATIENT NEW HIGH MDM 60 MINUTES Sonam Drake NP [address] [place] [address] Skinny Villafuerte MD [address] [place] [address] Referral ID Status Reason Start Date Expiration Date Visits Requested Visits Authorized [id number] Pending Review Specialty Services Required 10/03/2023 03/31/2024 [...] Care Teams (unrecognized sec tion and content) Public Health Assistant Relationship Specialty Start Date End Date Sr Jonathan Edwards DO [address] [facility] [place] [address] PCP - General Family Medicine 08/30/21 Public Health Assistant Relationship Specialty Start Date End Date Shaikh [...] April 30, 2023 End: April 30, 2023 Public Health Assistant Relationship Specialty Start Date End Date Jose Chandler MD [address] [place] [address] PCP - General Family Medicine 12/12/23 Sonam Drake NP [address] [place] [address] Nurse Practitioner Family Medicine 09/24/23 Public Health Assistant Relationship Specialty Start Date End Date Jose Chandler MD [address] [place] [address] PCP - General Family Medicine 12/12/23 Sonam Drake NP [address] [place] [address] Nurse Practitioner Family Medicine 09/24/23 Public Health Assistant Relationship Specialty Start Date End Date Jose Chandler MD [address] [place] [address] PCP - General Family Medicine 12/12/23 Sonam Drake NP [address] [place] [address] Nurse Practitioner Family Medicine 09/24/23 Public Health Assistant Relationship Specialty Start Date End Date Jose Chandler MD [address] [place] [address] PCP - General Family Medicine 12/12/23 Sonam Drake NP [address] [place] [address] Nurse Practitioner Family Medicine 09/24/23 Public Health Assistant Relationship Specialty Start Date End Date Jose Chandler MD [address] [place] [address] PCP - General Family Medicine 12/12/23 Sonam Drake NP [address] [place] [address] Nurse Practitioner Family Medicine 09/24/23 Public Health Assistant Relationship Specialty Start Date End Date Jose Chandler MD [address] [place] [address] PCP - General Family Medicine 12/12/23 Sonam Drake NP [address] [place] [address] Nurse Practitioner Family Medicine 09/24/23 Public Health Assistant Relationship Specialty Start Date End Date Jose Chandler MD [address] [place] [address] PCP - General Family Medicine 09/24/23 Sonam Drake NP [address] [place] [address] Nurse Practitioner Family Medicine 09/24/23 Public Health Assistant Relationship Specialty Start Date End Date Jose Chandler MD [address] [place] [address] PCP - General Family Medicine 09/24/23 Sonam Drake NP [address] [place] [address] Nurse Practitioner Family Medicine 09/24/23 Public Health Assistant Relationship Specialty Start Date End Date Jose Chandler MD [address] [place] [address] PCP - General Family Medicine 09/24/23 Sonam Drake NP [address] [place] [address] Nurse Practitioner Family Medicine 09/24/23 Public Health Assistant Relationship Specialty Start Date End Date Jose Chandler MD [address] [place] [address] PCP - General Family Medicine 09/24/23 Sonam Drake NP [address] [place] [address] Nurse Practitioner Family Medicine 09/24/23 Public Health Assistant Relationship Specialty Start Date End Date Jose Chandler MD [address] [place] [address] PCP - General Family Medicine 12/12/23 Sonam Drake NP [address] [place] [address] Nurse Practitioner Family Medicine 09/24/23 Public Health Assistant Relationship Specialty Start Date End Date Jose Chandler MD [address] [place] [address] PCP - General Family Medicine 12/12/23 Sonam Drake NP [address] [place] [address] Nurse Practitioner Family Medicine 09/24/23 Public Health Assistant Relationship Specialty Start Date End Date Jose Chandler MD [address] [place] [address] PCP - General Family Medicine 12/12/23 Sonam Drake NP [address] [place] [address] Nurse Practitioner Family Medicine 09/24/23 Public Health Assistant Relationship Specialty Start Date End Date Jose Chandler MD [address] [place] [address] PCP - General Family Medicine 12/12/23 Sonam Drake NP [address] [place] [address] Nurse Practitioner Family Medicine 09/24/23 Public Health Assistant Relationship Specialty Start Date End Date Jose Chandler MD [address] [place] [address] PCP - General Family Medicine 12/12/23 Sonam Drake NP [address] [place] [address] Nurse Practitioner Family Medicine 09/24/23 Public Health Assistant Relationship Specialty Start Date End Date Jose Chandler MD [address] [place] [address] PCP - General Family Medicine 12/12/23 Sonam Drake NP [address] [place] [address] Nurse Practitioner Family Medicine 09/24/23 Public Health Assistant Relationship Specialty Start Date End Date Jose Chandler MD [address] [place] [address] PCP - General Family Medicine 12/12/23 Sonam Drake NP [address] [place] [address] Nurse Practitioner Family Medicine 09/24/23 Public Health Assistant Relationship Specialty Start Date End Date Jose Chandler MD [address] [place] [address] PCP - General Family Medicine 12/12/23 Sonam Drake NP [address] [place] [address] Nurse Practitioner Family Medicine 09/24/23 Public Health Assistant Relationship Specialty Start Date End Date Jose Chandler MD [address] [place] [address] PCP - General Family Medicine 12/12/23 Sonam Drake NP [address] [place] [address] Nurse Practitioner Family Medicine 09/24/23 Public Health Assistant Relationship Specialty Start Date End Date Jose Chandler MD [address] [place] [address] PCP - General Family Medicine 12/12/23 Sonam Drake NP [address] [place] [address] Nurse Practitioner Family Medicine 09/24/23 Public Health Assistant Relationship Specialty Start Date End Date Jose Chandler MD [address] [place] [address] PCP - General Family Medicine 12/12/23 Sonam Drake NP Nurse Practitioner Family Medicine 09/24/23 Za Wilkerson NP [address] [place], [place] Nurse Practitioner Neurology 04/21/24 Sivan Banda DO [address] [place], [place] [phone] Referring Physician Neurology 04/21/24 Public Health Assistant Relationship Specialty Start Date End Date Jose Chandler MD [address] [place] [address] PCP - General Family Medicine 12/12/23 Sonam Drake NP Nurse Practitioner Family Medicine 09/24/23 Za Wilkerson NP [address] [place], [place] Nurse Practitioner Neurology 04/21/24 Sivan Banda DO [address] [place] [address] Referring Physician Neurology 04/21/24 Public Health Assistant Relationship Specialty Start Date End Date Jose Chandler MD [address] [place] [address] PCP - General Family Medicine 12/12/23 Sonam Drake NP Nurse Practitioner Family Medicine 09/24/23 Za Wilkerson NP [address] [place], [place] Nurse Practitioner Neurology 04/21/24 Sivan Banda DO [address] [place] [address] Referring Physician Neurology 04/21/24 Public Health Assistant Relationship Specialty Start Date End Date Jose Chandler MD [address] [place] [address] PCP - General Family Medicine 12/12/23 Sonam Drake NP Nurse Practitioner Family Medicine 09/24/23 Za Wilkerson NP [address] [place], [place] Nurse Practitioner Neurology 04/21/24 Sivan Banda DO [address] [place] [address] Referring Physician Neurology 04/21/24 Public Health Assistant Relationship Specialty Start Date End Date Jose Chandler MD [address] [place] [address] PCP - General Family Medicine 12/12/23 Sonam Drake NP Nurse Practitioner Family Medicine 09/24/23 Za Wilkerson, RONALDO [address] [place], [place] Nurse Practitioner Neurology 04/21/24 Sivan Banda DO [address] [place] [address] Referring Physician Neurology 04/21/24 Public Health Assistant Relationship Specialty Start Date End Date Jose Chandler MD [address] [place] [address] PCP - General Family Medicine 12/12/23 Sonam Drake NP Nurse Practitioner Family Medicine 09/24/23 Za Wilkerson NP [address] [place] Nurse Practitioner Neurology 04/21/24 Sivan Banda DO [address] [place] [address] Referring Physician Neurology 04/21/24 Public Health Assistant Relationship Specialty Start Date End Date Jose Chandler MD [address] [place] [address] PCP - General Family Medicine 12/12/23 Sonam Drake NP Nurse Practitioner Family Medicine 09/24/23 Za Wilkerson NP [address] [place] [address] Nurse Practitioner Neurology 04/21/24 Sivan Banda DO [address] [place] [address] Referring Physician Neurology 04/21/24 Team Status: Active [...] May 28, 2024 End: May 28, 2024 Public Health Assistant Relationship Specialty Start Date End Date Jose Chandler MD [facility] [place] [address] PCP - General Family Medicine 12/12/23 Sonam Drake NP Nurse Practitioner Family Medicine 09/24/23 Za Wilkerson, RONALDO [address] [place] [address] Nurse Practitioner Neurology 04/21/24 Sivan Banda DO [address] [place], [place] [id number] Referring Physician Neurology 04/21/24 Public Health Assistant Relationship Specialty Start Date End Date Jose Chandler MD [address] [place] [address] PCP - General Family Medicine 12/12/23 Sonam Drake NP Nurse Practitioner Family Medicine 09/24/23 Za Wilkerson, RONALDO [address] [place], [place] Nurse Practitioner Neurology 04/21/24 Sivan Banda DO [address] [place] [address] Referring Physician Neurology 04/21/24 Public Health Assistant Relationship Specialty Start Date End Date Jose Chandler MD [address] [place] [address] PCP - General Family Medicine 12/12/23 Sonam Drake NP Nurse Practitioner Family Medicine 09/24/23 Za Wilkerson NP [address] [place], [place] Nurse Practitioner Neurology 04/21/24 Sivan Banda DO [address] [place] [address] Referring Physician Neurology 04/21/24 Public Health Assistant Relationship Specialty Start Date End Date Jose Chandler MD [address] [place] [address] PCP - General Family Medicine 12/12/23 Sonam Drake NP Nurse Practitioner Family Medicine 09/24/23 Za Wilkerson NP [address] [place] [address] Nurse Practitioner Neurology 04/21/24 Sivan Banda DO [address] [place] [address] Referring Physician Neurology 04/21/24 Public Health Assistant Relationship Specialty Start Date End Date Jose Chandler MD [address] [place] [address] PCP - General Family Medicine 12/12/23 Sonam Drake NP Nurse Practitioner Family Medicine 09/24/23 Za Wilkerson NP [address] [place] [address] Nurse Practitioner Neurology 04/21/24 Sivan Banda DO [address] [place] [id number] Referring Physician Neurology 04/21/24 Public Health Assistant Relationship Specialty Start Date End Date Jose Chandler MD [address] [place] [address] PCP - General Family Medicine 12/12/23 Sonam Drake NP Nurse Practitioner Family Medicine 09/24/23 Za Wilkerson NP [address] [place] [address] Nurse Practitioner Neurology 04/21/24 Sivan Banda DO [address] [place] [address] Referring Physician Neurology 04/21/24 Public Health Assistant Relationship Specialty Start Date End Date Jose Chandler MD [address] [place] [address] PCP - General Family Medicine 12/12/23 Sonam Drake NP Nurse Practitioner Family Medicine 09/24/23 Za Wilkerson NP [address] [place] [address] Nurse Practitioner Neurology 04/21/24 Sivan Banda DO [address] [place] [address] Referring Physician Neurology 04/21/24 Public Health Assistant Relationship Specialty Start Date End Date Jose Chandler MD [address] [place] [address] PCP - General Family Medicine 12/12/23 Sonam Drake NP Nurse Practitioner Family Medicine 09/24/23 Za Wilkerson NP [address] [place] [address] Nurse Practitioner Neurology 04/21/24 Sivan Banda DO [address] [place] [address] Referring Physician Neurology 04/21/24 Public Health Assistant Relationship Specialty Start Date End Date Jose Chandler MD [address] [place] [address] PCP - General Family Medicine 12/12/23 Sonam Drake NP Nurse Practitioner Family Medicine 09/24/23 Za Wilkerson NP [address] [place] [address] Nurse Practitioner Neurology 04/21/24 Sivan Banda DO [address] [place] [address] Referring Physician Neurology 04/21/24 Public Health Assistant Relationship Specialty Start Date End Date Jose Chandler MD [address] [place] [address] PCP - General Family Medicine 12/12/23 Sonam Drake NP Nurse Practitioner Family Medicine 09/24/23 Za Wilkerson NP [address] [place] [address] Nurse Practitioner Neurology 04/21/24 Sivan Banda DO [address] [place] [address] Referring Physician Neurology 04/21/24 Public Health Assistant Relationship Specialty Start Date End Date Jose Chandler MD [address] [place] [address] PCP - General Family Medicine 12/12/23 Sonam Drake NP Nurse Practitioner Family Medicine 09/24/23 Za Wilkerson, RONALDO [address] [place] [address] Nurse Practitioner Neurology 04/21/24 Sivan Banda DO [address] [place] [address] Referring Physician Neurology 04/21/24 INFORMATION SOURCE (unrecogn ized section and content) DATE CREATED AUTHOR 09/10/2021 [facility] DATE CREATED AUTHOR AUTHOR'S ORGANIZ ATION 06/08/2022 [facility] [place] [facility] DATE CREATED AUTHOR AUTHOR'S ORGANIZ ATION 10/06/2023 [facility] DATE CREATED AUTHOR AUTHOR'S ORGANIZ ATION 06/01/[address] [facility] DATE CREATED AUTHOR AUTHOR'S ORGANIZ ATION 07/15/2024 [facility] DATE CREATED AUTHOR AUTHOR'S ORGANIZ ATION 08/24/2024 [facility] REASON FOR VISIT (unrecogniz ed section and [...] Reason Onset Date Comments Med Refill 06/23/2024 Reason Onset Date Comments Med Refill 07/22/2024 Reason Comments NEW PTH REF/LAB Specialty Diagnoses / Procedures Referred By Darren t Referred To Contact Endocrinology Diagnoses Low serum parathyroid hormone (PTH) Procedures [place] OFFICE/OUTPATIENT NEW HIGH MDM 60 MINUTES Ameena Vera NP [address] [place] [address] Phone: tel: fax: Kasi Bennett MD [address] [place] [address] Phone: tel: fax: Referral ID Status Reason Start Date Expiration Date Visits Requested Visits Authorized [id number] Pending Review Specialty Services Required 07/14/2024 01/10/2025 1 1 Goals (unrecognized section and content) Goals may [...] BE BASED ON THE PRIMARY CLINICAL RECORDS. [facility] [employer] provides no warranty or guarantee of the accuracy or completeness of information in this document.
--- NOTE | 2024-09-20 22:05 | ECG_ITS ---
[facility] Test Date: 2024-09-20 Pat Name: KARINA DE OLIVEIRA Department: Room: - Gender: Female [employer]: : 1965 Requested By: [id number] Order Number: [id number] Reading MD: REBA VAZ M.D. Measurements Intervals [place] Rate: 98 P: 53 AR: 216 QRS: 262 QRSD: 88 T: 46 QT: 338 QTc: 393 Interpretive Statements 1100 Sinus rhythm 2231 First degree AV block 5120 Possible right ventricular hypertrophy 8003 Consistent with pulmonary disease 9150 abnormal ECG Compared to ECG 06/10/2023 09:56:20 First degree AV block now present Sinus tachycardia no longer present Indeterminate axis no longer present Electronically Signed On 09-22-2024 13:58:33 EDT by REBA VAZ M.D.
[2024-09-20 22:12] LABS: Hematocrit 41.0 % (36.0-48.0); Hemoglobin 14.0 g/dL (12.0-16.0); Immature Granulocytes Abs Auto 0.10 10^3/uL (0.00-0.03); Immature Granulocytes Pct Auto 0.8 % (0.0-0.5); Lymphocytes Absolute Auto 2.8 10^3/uL (1.2-3.8); Mean Corpuscular HGB Conc 34.1 g/dL (29.9-35.2); Mean Corpuscular Hemoglobin 33.3 pg (26.7-34.0); Mean Corpuscular Volume 97.4 fL (81.0-99.0); Platelet Count 205 10^3/uL (150-450); Red Blood Count 4.21 10^6/uL (4.20-5.40); White Blood Count 11.9 10^3/uL (4.0-11.0)
[2024-09-20 22:13] LABS: Glucose Urine UA NEGATIVE (NEGATIVE)
[2024-09-20 22:20] LABS: PCO2 VBG 52.9 mmHg (40.0-52.0); pH VBG 7.394 (7.330-7.430)
[2024-09-20 22:22] LABS: Cannabinoid Screen Urine NEGATIVE (NEGATIVE); Methamphetamines Screen Urine NEGATIVE (NEGATIVE); Tricyclic Antidepressant Urine NEGATIVE (NEGATIVE)
[2024-09-20 22:24] LABS: Cast Seen? NONE SEEN #/LPF (NONE SEEN); Crystals Seen? None Seen #/HPF (None Seen); Urine Culture Indicated NO
[2024-09-20 22:26] LABS: Alanine Aminotransferase 29 U/L (14-59); Albumin Globulin Ratio 0.8; Albumin Level 3.3 g/dL (3.4-5.0); Alkaline Phosphatase 109 U/L (46-116); Anion Gap 10.2; Aspartate Amino Transferase 16 U/L (15-37); Blood Urea Nitrogen 24.0 mg/dL (7.0-18.0); Calcium 9.6 mg/dL (8.5-10.1); Carbon Dioxide 33.5 mmol/L (21.0-32.0); Chloride 102 mmol/L (98-107); Estimated GFR (African America >60 (>=60 mL/min/1.73m^2); Estimated GFR (Non-African Ame 51 (>=60 mL/min/1.73m^2); Globulin 4.3 g/dL; Glucose 120 mg/dL (74-106); Potassium 3.7 mmol/L (3.5-5.1); Sodium 142 mmol/L (136-145); Total Protein 7.6 g/dL (6.4-8.2)
[2024-09-20 22:28] LABS: Ammonia 17 umol/L (11-32); Lactate/Lactic Acid 1.0 mmol/L (0.4-2.0)
[2024-09-20 22:29] LABS: Magnesium 1.7 mg/dL (1.8-2.4); Salicylate 3.9 mg/dL (<=19.9)
[2024-09-20 22:31] LABS: Acetaminophen <2.0 ug/mL (10.0-30.0)
[2024-09-20 22:33] LABS: INR 1.04; Partial Thromboplastin Time 26.9 sec (22.3-36.2); Prothrombin Time 11.0 sec (9.0-11.6)
[2024-09-20 23:22] LABS: ABG PCO2 45.6 mmHg (35.0-45.0); Allen Test POSITIVE (POSITIVE); Carboxyhemoglobin 7.0 % (1.5-4.9); HCO3 ABG 29.9 mmol/L (22.0-26.0); Methemoglobin ABG <1.0 % (1.1-1.9); Oxygen Saturation ABG 95.5 %; PO2 ABG 69.4 mmHg (80.0-100.0)
[2024-09-20 23:23] LABS: O2 Mode ROOM AIR; Puncture Site R RADIAL
[2024-09-21] VITALS (19 sets, daily range): BP systolic 116–147; BP diastolic 74–85; PULSE 80–107; TEMP 36.4–36.9; O2SAT 91–95; BMI 35.3
--- NOTE | 2024-09-21 01:27 | ED.GENADUL1 ---
HPI HPI - General Adult General Chief complaint: Neuro Symptoms/Deficit Stated complaint: INCOHERENT Time Seen by Provider: 09/20/24 21:47 Source: patient and family Mode of arrival: Wheelchair Limitations: altered mental status History of Present Illness HPI narrative: Patient is a 58-year-old female presenting to the emergency department with her for concerns of altered mental status. Per the , 5 hours ago he was having dinner with the patient when she started to become confused. states that she started to fall asleep and, unresponsive, and had a hard time awakening her. He states that she is confused and is not acting like herself. He states that she was having difficulty with her balance, and had a fall where she hit her head. Denies being on blood thinners. Otherwise, he has no other concerns for the patient. She was otherwise at her baseline state of health and was not complaining of any systemic symptoms such as chest pain, shortness of breath, nausea, vomiting, chest pain, neck pain, fevers, chills, or flulike symptoms. He states she was prescribed Percocet, but took no pain medications today. He denies any drugs or alcohol use tonight. The patient self does appear confused, and does not provide a reliable history. When asked if she is in any pain or discomfort, she states no. She smiles at me and appears pleasantly confused. Related Data Home Medications ?Medication ?Instructions ?Recorded ?Confirmed alendronate 70 mg tablet 70 mg PO QWEEK 07/20/22 06/22/24 allopurinol 300 mg tablet 300 mg PO DAILY 07/20/22 06/22/24 aspirin 81 mg tablet,delayed 81 mg PO DAILY 07/20/22 06/22/24 release (Adult Aspirin Regimen) diclofenac sodium 75 mg 75 mg PO BID 07/20/22 06/22/24 tablet,delayed release divalproex 500 mg tablet,delayed 500 mg PO BID 07/20/22 06/22/24 release (Depakote) glucosamine VQp-R0-Zfmixyxia 1 tab PO DAILY 07/20/22 06/22/24 krzysztof 1,500 mg-400 unit-100 mg tablet (Osteo Bi-Flex (5-Loxin)) multivitamin 1 tab PO DAILY 07/20/22 06/22/24 oxycodone-acetaminophen 5 mg-325 1 tab PO DAILY PRN pain 07/20/22 06/22/24 mg tablet prasterone (DHEA) 50 mg capsule 50 mg PO DAILY 07/20/22 06/22/24 (DHEA) famotidine 20 mg tablet 20 mg PO BID 06/08/23 06/22/24 metformin 1,000 mg tablet 500 mg PO BID 06/08/23 06/22/24 rizatriptan 10 mg tablet 10 mg PO Q2H PRN migraine headache 06/08/23 06/22/24 rosuvastatin 20 mg tablet 20 mg PO DAILY 06/08/23 06/22/24 pregabalin 75 mg capsule 75 mg PO BID 08/17/23 06/22/24 semaglutide 1 mg/dose (4 mg/3 mL) 1 mg subcut QWEEK 08/17/23 06/22/24 subcutaneous pen injector (Ozempic) Previous Rx's ?Medication ?Instructions ?Recorded baclofen 20 mg tablet 20 mg PO TID PRN muscle spasm #60 08/18/23 tabs oxycodone-acetaminophen 5 mg-325 1 tab PO DAILY PRN pain #30 tabs 07/01/24 mg tablet (Percocet) Allergies Allergy/AdvReac Type Severity Reaction Status Date / Time No Known Drug Allergies Allergy Verified 09/20/24 22:03 Opioid HPI Opioid Management Most Recent Opioid Data: Last Pain Scale 7 06/22/24, 09:15 Last Pain Intensity 0 08/17/23, 11:26 Last ORT Total Score 0 08/17/23, 04:54 Last ORT Risk Category Low Risk 08/17/23, 04:54 Ur Phencyclidine Scrn, (NEGATIVE) Negative 09/20/24, 21:55 Review of Systems ROS Status of ROS 10 or more systems reviewed and unremarkable except as noted in history and below PFSH PFSH Medical History Morbid obesity due to excess calories ?E66.01 - Morbid (severe) obesity due to excess calories (ICD-10) Type 2 diabetes mellitus with hyperglycemia ?E11.65 - Type 2 diabetes mellitus with hyperglycemia (ICD-10) HTN (hypertension) ?I10 - Essential (primary) hypertension (ICD-10) Lumbar spondylosis ?M47.816 - Spondylosis without myelopathy or radiculopathy, lumbar region (ICD-10) Fracture of foot ?S92.909A - Unspecified fracture of unspecified foot, initial encounter for closed fracture (ICD-10) Closed fibular fracture ?S82.409A - Unspecified fracture of shaft of unspecified fibula, initial encounter for closed fracture (ICD-10) Fracture of medial cuneiform of left foot ?S92.242A - Displaced fracture of medial cuneiform of left foot, initial encounter for closed fracture (ICD-10) Fracture of metatarsal of left foot, closed ?S92.302A - Fracture of unspecified metatarsal bone(s), left foot, initial encounter for closed fracture (ICD-10) Dislocation of foot, left, closed ?S93.305A - Unspecified dislocation of left foot, initial encounter (ICD-10) Mild protein-calorie malnutrition ?E44.1 - Mild protein-calorie malnutrition (ICD-10) Acute exacerbation of chronic low back pain ?M54.50 - Low back pain, unspecified (ICD-10) ?G89.29 - Other chronic pain (ICD-10) Migraine headache ?G43.909 - Migraine, unspecified, not intractable, without status migrainosus (ICD-10) Hyperlipidemia ?E78.5 - Hyperlipidemia, unspecified (ICD-10) Iron deficiency anemia ?D50.9 - Iron deficiency anemia, unspecified (ICD-10) Lumbar radiculopathy ?M54.16 - Radiculopathy, lumbar region (ICD-10) Chronic prescription opiate use ?Z79.891 - alf (current) use of opiate analgesic (ICD-10) Sacroiliac joint pain ?M53.3 - Sacrococcygeal disorders, not elsewhere classified (ICD-10) Muscle spasm ?M62.838 - Other muscle spasm (ICD-10) Cervical spondylosis ?M47.812 - Spondylosis without myelopathy or radiculopathy, cervical region (ICD-10) Lumbar stenosis with neurogenic claudication ?M48.062 - Spinal stenosis, lumbar region with neurogenic claudication (ICD-10) Compression fracture of L1 vertebra ?S32.010A - Wedge compression fracture of first lumbar vertebra, initial encounter for closed fracture (ICD-10) Tubal ?O00.109 - Unspecified tubal without intrauterine (ICD-10) TMJ (dislocation of temporomandibular joint) ?S03.00XA - Dislocation of jaw, unspecified side, initial encounter (ICD-10) Upper back pain ?M54.9 - Dorsalgia, unspecified (ICD-10) Back pain ?M54.9 - Dorsalgia, unspecified (ICD-10) Neck pain ?M54.2 - Cervicalgia (ICD-10) Osteoarthritis ?M19.90 - Unspecified osteoarthritis, unspecified site (ICD-10) Obesity ?E66.9 - Obesity, unspecified (ICD-10) Heartburn ?R12 - Heartburn (ICD-10) Acid reflux ?K21.9 - Gastro-esophageal reflux disease without esophagitis (ICD-10) Diabetes ?E11.9 - Type 2 diabetes mellitus without complications (ICD-10) Smoker ?F17.200 - Nicotine dependence, unspecified, uncomplicated (ICD-10) Surgical History (Updated 06/12/24 @ 14:03 by Poonam Kyle) H/O unilateral salpingectomy ?Z90.79 - Acquired absence of other genital organ(s) (ICD-10) S/P lumbar spine operation ?Z98.890 - Other specified postprocedural states (ICD-10) H/O: hysterectomy ?Z90.710 - Acquired absence of both cervix and uterus (ICD-10) Family History Mother Family history of CHF (congestive heart failure) Family history of cancer Family history of diabetes mellitus Family history of hypertension Family history of myocardial infarction Social History Within the past year, how often did you have a drink containing alcohol: monthly or less Smoking status: Light tobacco smoker Non-prescribed substance use: denies use Previous occupational history: retired/disability Highest level of school completed/degree received: high school graduate Are you now , , , , never or living with a partner: In a typical week, how many times do you talk on the telephone with family, friends, or neighbors: 3 or more times per week How often do you get together with friends or relatives: 3 or more times per week How often do you attend jain or druze services: never Little interest or pleasure in doing things: not at all Feeling down, depressed, or hopeless: not at all Feel stressed/tense/nervous/anxious/difficulty sleeping: not at all Do you think of yourself as: straight/heterosexual Gender Identity: female Exam Narrative Exam Narrative: CONSTITUTIONAL: Patient is drowsy, but arousable to loud verbal stimuli/sternal rub. She follows commands after numerous requests. She is oriented x 2 to person, place, but not time/date. She cannot tell me the president's name. She generally appears well-hydrated and well-nourished SKIN: Warm and dry. No exercise injury. No rashes. EYES: No scleral icterus. No conjunctival pallor. EARS, NOSE, THROAT: Neck was supple. No nuchal rigidity. There was no jugular venous distention. Moist oral mucosa. RESPIRATORY: Clear to auscultation bilaterally, no wheezes, crackles, or stridor, no use of accessory muscles CARDIOVASCULAR: Normal rate and regular rhythm. There is no S3, S4, murmur, rub. Radial and dorsalis pedis pulses are 2+ and symmetrical. GASTROINTESTINAL: Abdomen was soft, non-tender, and non-distended. There is no guarding or rebound tenderness MUSCULOSKELETAL: There was no lower extremity edema, erythema, or tenderness. No deformities. No rigidity or clonus. NEUROLOGIC: NIHSS 1: she does not know the date/time. Patient speaks with a normal voice without dysarthria. No slurred speech. Sensation: sensation to light touch is intact bilaterally in upper and lower extremities. Motor: Good muscle tone. Strength is 5/5 bilaterally in the upper and lower extremities. Cerebellar: Finger to nose intact. Patient has a normal gait without ataxia. Cranial Nerves: Pupils are round, reactive to light and accommodation. Visual fagan intact. Extraocular movements are intact without ptosis. No nystagmus. Facial sensation intact bilaterally to light touch in the V1, V2, V3 distribution. Facial muscle strength is normal and equal bilaterally. Hearing is normal bilaterally. Palate and uvula elevate symmetrically. Shoulder shrug strong and equal bilaterally. Tongue protrudes midline and moves symmetrically. Constitutional Vital Signs, click to edit/add: Last Vital Signs Temp 98 F 09/20/24 21:47 Pulse 100 H 09/20/24 21:47 Resp 18 09/20/24 21:47 BP 137/90 09/20/24 21:47 Pulse Ox 96 09/20/24 21:47 O2 Del Method Room Air 09/20/24 21:47 Course Vital Signs Vital signs: Vital Signs Temperature 98 F 09/20/24 21:47 Pulse Rate 100 H 09/20/24 21:47 Respiratory Rate 18 09/20/24 21:47 Blood Pressure 137/90 09/20/24 21:47 Pulse Oximetry 96 09/20/24 21:47 Oxygen Delivery Method Room Air 09/20/24 21:47 Temperature 98 F 09/20/24 21:47 Pulse Rate 100 H 09/20/24 21:47 Respiratory Rate 18 09/20/24 21:47 Blood Pressure 137/90 09/20/24 21:47 Pulse Oximetry 96 09/20/24 21:47 Oxygen Delivery Method Room Air 09/20/24 21:47 Medical Decision Making MDM Narrative Medical decision making narrative: Patient is a 58-year-old female presenting to the emergency department with her for concerns of altered mental status worsening over the last 5 hours. Vital signs arrival are within normal limits. She is afebrile and hemodynamically stable. Generally, the patient appears drowsy and continuously nods off during my examination. She is oriented x [address], but cannot tell me the president or date/time. She appears confused and mildly encephalopathic. She has no focal neurologic deficits and has a NIHSS of 1. Differential diagnosis includes encephalopathy, possibly secondary to alcohol intoxication, drug overdose, uremia, hepatic encephalopathy, intracranial hemorrhage, carbon monoxide poisoning, encephalitis, or other electrolyte/metabolic derangements. She has no nuchal rigidity or fevers to suggest meningitis. IV was established and broad workup was obtained. CT/CTA head/neck were obtained. Laboratory studies were overall unremarkable. No leukocytosis, anemia, or thrombocytopenia. Normal coagulation profile. Arterial blood gas was normal without evidence of significant carboxyhemoglobinemia. No significant electrolyte derangement. No evidence of acute renal injury. Lactic acid level was normal. No transaminitis or hyperbilirubinemia. No anion gap acidosis. Troponin not elevated. No elevated ammonia or uremia. Urinalysis was negative. Urine/serum drug screen are negative. No alcohol intoxication. Euglycemic. CT/CTA of the head and neck and failure reviewed by myself and confirmed by radiology demonstrated no significant stenosis, dissection, or large vessel occlusion within the head or neck. No intracranial hemorrhage. Twelve-lead EKG independent reviewed/interpreted by myself normal sinus rhythm without evidence of acute myocardial ischemia. Normal rate of 98. Normal axis. No ST segment elevations. QRS, RI, and QTc interval within normal limits. On reevaluation after multiple hours in the emergency department, the patient remains confused/encephalopathic. Unclear as to the exact etiology behind the patient symptoms, however she has not returned to her baseline. Therefore, I do believe she warrants admission to the hospital for further care. I discussed the patient with hospitalist, Dr. Live, who accepted the patient to her service. Medical Records Medical records reviewed: Yes I reviewed the patient's medical records Lab Data Lab results reviewed: Yes I reviewed the patient's lab results Labs: Lab Results 09/20/24 09/20/24 09/20/24 Range/Units 21:55 22:00 23:15 WBC 11.9 H (4.0-11.0) 10^3/uL RBC 4.21 (4.20-5.40) 10^6/uL Hgb 14.0 (12.0-16.0) g/dL Hct 41.0 (36.0-48.0) % MCV 97.4 (81.0-99.0) fL MCH 33.3 (26.7-34.0) pg MCHC 34.1 (29.9-35.2) g/dL RDW 14.2 (11.0-15.0) % Plt Count 205 (150-450) 10^3/uL MPV 10.8 (9.5-13.5) fL Neut % (Auto) 65.6 (43.0-75.0) % Lymph % (Auto) 23.2 (20.5-60.0) % Christian % (Auto) 6.6 (1.7-12.0) % Eos % (Auto) 3.3 (0.9-7.0) % Baso % (Auto) 0.5 (0.2-2.0) % Neut # (Auto) 7.8 H (1.4-6.5) 10^3/uL Lymph # (Auto) 2.8 (1.2-3.8) 10^3/uL Christian # (Auto) 0.8 (0.3-0.8) 10^3/uL Eos # (Auto) 0.4 (0.0-0.7) 10^3/uL Baso # (Auto) 0.1 (0.0-0.1) 10^3/uL Abs Immat Gran (auto) 0.10 H (0.00-0.03) 10^3/uL Imm/Tot Granulo (auto) 0.8 H (0.0-0.5) % PT 11.0 (9.0-11.6) sec INR 1.04 APTT 26.9 (22.3-36.2) sec Puncture Site R radial ABG pH 7.425 (7.350-7.450) ABG pCO2 45.6 H (35.0-45.0) mmHg ABG pO2 69.4 L (80.0-100.0) mmHg ABG HCO3 29.9 H (22.0-26.0) mmol/L ABG O2 Saturation 95.5 % ABG Base Excess 5.5 H (-2.0-2.0) mmol/L ABG Methemoglobin <1.0 L (1.1-1.9) % Jordan Test Positive (POSITIVE) VBG pH 7.394 (7.330-7.430) VBG pCO2 52.9 H (40.0-52.0) mmHg Carboxyhemoglobin 7.0 H (1.5-4.9) % Sodium 142 (136-145) mmol/L Potassium 3.7 (3.5-5.1) mmol/L Chloride 102 (98-107) mmol/L Carbon Dioxide 33.5 H (21.0-32.0) mmol/L Anion Gap 10.2 BUN 24.0 H (7.0-18.0) mg/dL Creatinine 1.09 H (0.55-1.02) mg/dL Est GFR ( Amer) >60 (>=60 mL/min/1.73m^2) Est GFR (Non-Af Amer) 51 L (>=60 mL/min/1.73m^2) BUN/Creatinine Ratio 22.0 Glucose 120 H (74-106) mg/dL Lactate 1.0 (0.4-2.0) mmol/L Calcium 9.6 (8.5-10.1) mg/dL Magnesium 1.7 L (1.8-2.4) mg/dL Total Bilirubin 0.3 (0.2-1.0) mg/dL AST 16 (15-37) U/L ALT 29 (14-59) U/L Alkaline Phosphatase 109 (46-116) U/L Ammonia 17 (11-32) umol/L Troponin I High Sens 6.0 (4.0-51.3) pg/mL Total Protein 7.6 (6.4-8.2) g/dL Albumin 3.3 L (3.4-5.0) g/dL Globulin 4.3 g/dL Albumin/Globulin Ratio 0.8 Urine Color Lt. yellow (YELLOW) Urine Clarity Clear (CLEAR) Urine pH 7.0 (5.0-9.0) Ur Specific Lawrence <=1.005 A (1.005-1.025) Urine Protein Negative (NEG/TRACE) mg/dL Urine Glucose (UA) Negative (NEGATIVE) mg/dL Urine Ketones Negative (NEGATIVE) mg/dL Urine Occult Blood Negative (NEGATIVE) Urine Nitrite Negative (NEGATIVE) Urine Bilirubin Negative (NEGATIVE) Urine Urobilinogen 0.2 (0.2-1.0) EU/dL Ur Leukocyte Esterase Negative (NEGATIVE) Urine RBC None seen (0-2) #/HPF Urine WBC None seen (NONE SEEN) #/HPF Ur Squamous Epith Cells Moderate A (NONE/RARE) #/LPF Urine Crystals None seen (None Seen) #/HPF Urine Bacteria None seen (NONE SEEN) #/HPF Urine Casts None seen (NONE SEEN) #/LPF Urine Mucus None seen (NONE SEEN) Ur Culture Indicated? No Salicylates 3.9 (<=19.9) mg/dL Urine Opiates Screen Negative (NEGATIVE) Ur Buprenorphine Scrn Negative (NEGATIVE) Ur Oxycodone Screen Negative (NEGATIVE) Urine Methadone Screen Negative (NEGATIVE) Acetaminophen <2.0 L (10.0-30.0) ug/mL Ur Barbiturates Screen Negative (NEGATIVE) U Tricyclic Antidepress Negative (NEGATIVE) Ur Phencyclidine Scrn Negative (NEGATIVE) Ur Amphetamines Screen Negative (NEGATIVE) U Methamphetamines Scrn Negative (NEGATIVE) U Benzodiazepines Scrn Negative (NEGATIVE) Urine Cocaine Screen Negative (NEGATIVE) U Cannabinoids Screen Negative (NEGATIVE) Ethanol Quant <3 mg/dL POC Glucose 109 H (74-106) mg/dL Imaging Data CT scan - head: Attestation: I personally reviewed and interpreted this imaging study as follows: ECG Data Attestation: I personally reviewed and interpreted this ECG as follows: Discharge Plan Discharge Chief Complaint: Neuro Symptoms/Deficit Clinical Impression: Encephalopathy acute Patient Disposition: Admitted As Inpatient Time of Disposition Decision: 00:09 Condition: Fair
--- OUTSIDE RECORDS SUMMARY | 2024-09-21 01:44 | XMS_ITS | CCD ---
Author Organization [facility] Care Team Providers Care Social Work Supervisor Name Role Phone House DO, Sr [...] vailable LAKSHMIPATHY ., NARCAMRYNATH Attending Nellie vailable IPERCE ., CRYS Consulting Unavailable HOLM ., DR [...] Unavailable HOUSE, DR BASURTO Primary Care Unavailable [place], DR RYAN Guzman Consulting Unavailable HOUSE, DR [...] Unavailable Maricel HOLLIS, Barrios Primary Care Provider [phone] Vidal BLENDING MACHINE FEEDER, Sonam Unavailable [phone] Ramesh HOLLIS, Jose Primary Care Provider Jose Chandler MD Primary Care Provider Vidal BLENDING MACHINE FEEDER, Sonam Unavailable [phone] Rock HIGGINS, Za Unavailable Sivan Banda DO Unavailable Lui Banks II Attending UnavailLui Alvarado II Admitting Unavailcurtis e NON STAFF Primary Care Unavailable NON STAFF Primary Care Provider UnavailLui Alvarado MD Attending Provider Keo HOLLIS, Tanya Esposito Attending Unavailable Gillmor BLENDING MACHINE FEEDER, Za Unavailable SONAM DRAKE Attending SONAM Justin [...] 30 tablet 11/04/2023 12/18/2023 Discontinued Continuous Glucose Rigging Up Man (Dexcom G7 Rigging Up Man) device (20 sources) Start: 03-03-2024 Continuous Glu cose Rigging Up Man (Dexcom G7 Rigging Up Man) device Indications: Type 2 diabetes mellitus with diabetic microalbuminuria, without long-term current use of insulin (HCC) 1 each continuously 1 each 03/03/2024 Active Start: 03-03-2024 Continuous Glu cose Rigging Up Man (Dexcom G7 Rigging Up Man) device Indications: Type 2 diabetes mellitus with [...] Continuous Glucose Sensor (D excom G7 Sensor) [facility] Indications: Type 2 diabetes mellitus with diabetic microalbuminuria, without long-term current use of insulin ([facility]) 1 each continuously 3 each 11 03/03/2024 03/30/2024 Discontinued (Reorder) Start: 03-03-2024 Continuous Glu cose Sensor (Dexcom G7 Sensor) [facility] Indications: Type 2 diabetes mellitus with diabetic microalbuminuria, without long-term current use of insulin ([facility]) 1 each continuously 3 each 11 03/03/2024 [...] a day Active take 1 capsule by [facility] twice daily pregabalin (LYRICA) 50 MG [...] microalbuminuria, without long-term current use of insulin ([facility]) Inject 2 mg under the skin every [...] not crush, chew, or split. 0 Active Dbyshavoiasp-Ht-Ktsn-Mineral s (Multiple Vitamin, Womens) Tablet (2 sources) Start: 01-12-2017 End: 01-15-2017 Imsjsnluildu-Up-Carg-Mineral s (Multiple Vitamin, Womens) Tablet Discontinued PO [...] Interpretation and review of laboratory results Abnormal [facility] - Hematology and Cell countson 08-20-2024 HbA1c (Bld) [Mass fraction] 6.4 % [facility] ALL BASIC METABOLIC PANELon 07-09-2024 Anion gap [Moles/Vol] 11.6 mmol/L [facility] Calcium [Mass/Vol] 9.3 mg/dL 8.5 - 10. 1 mg/dL [facility] Chloride [Moles/Vol] 103 mmol/L 98 - 10 7 mmol/L [facility] CO2 [Moles/Vol] 33 mmol/L High 21.0 - 32.0 mmol/L [facility] Creatinine [Mass/Vol] 0.86 mg/dL 0.55 - 1.02 mg/dL [facility] GFR/1.73 sq M.predicted CKD-EPI (S/P/Bld) [Vol rate/Area] >60 >=60 mL/min/1.73m 2 [facility] Glucose [Mass/Vol] 107 mg/dL High 74 - 106 mg/dL [facility] Interpretation and review of laboratory results Abnormal [facility] Potassium [Moles/Vol] 4.6 mmol/L 3.5 - 5.1 mmol/L [facility] Sodium [Moles/Vol] 143 mmol/L 136 - 145 mmol/L [facility] TBH EGFR-NON AF MEXICAN >60 >=60 mL/min/1.73m 2 [facility] Urea nitrogen [Mass/Vol] 20 mg/dL High 7.0 - 18.0 mg/dL [facility] Urea nitrogen/Creatinine [Mass ratio] 23.3 mg/mg [facility] X-ray reportOrdered By: Anton Penny on 05-28-2024 Study report [facility] [place] [facility] [address] [place] [address] XRay Report Signed Patient: Karina De Oliveira MR#: [id number] : 1965 Acct:[id number] Age/Sex: 58 / F ADM Date: 5 Loc: [facility] Room: Type: [facility] Attending Dr: Lui Banks II, MD Copies to: Lui Banks MD~ Ordering Provider: Lui Banks MD Date of Service: 05/28/24 XR/XR knee RT 4V*: M25.561 - Pain in right knee ([id number]) XR/XR pelvis 1-2V: M25.561 - Pain in [...] DO 05/28/24 1523 Signed By: 05/28/24 1524 [facility] X[facility] knee RT 4V*on 05-28-2024 XR knee RT 4V* [facility] [place] [facility] [address] [place] [address] XRay Report Signed Patient: Karina De Oliveira MR#: [id number] : 1965 Acct:[id number] Age/Sex: 58 / F ADM Date: 05/28/24 Loc: [facility] Room: Type: [facility] Attending Dr: Lui Banks II, MD Copies to: Lui Banks MD Ordering Provider: Lui Banks MD Date of Service: 05/28/24 XR/XR knee RT 4V*: M25.561 - Pain in right knee ([id number]) XR/XR pelvis 1-2V: M25.561 - Pain in [...] 1523 Signed By: 05/28/24 1524 Normal [facility] ALL CBC WITH AUTO DIFFon BASOPHILS ABSOLUTE AUTO 0.1 [facility] Basophils/100 WBC (Bld) 0.5 % 0.2 - 2.0 % [facility] Eosinophils/100 WBC (Bld) 4 % 0.9 - 7.0 % [facility] Erythrocyte distribution width (RBC) [Ratio] 14.6 % 11.0 - 15.0 % [facility] Hematocrit (Bld) [Volume fraction] 41.6 % 36.0 - 48.0 % [facility] Hemoglobin (Bld) [Mass/Vol] 14.1 g/dL 12.0 - 16.0 g/dL [facility] IMMATURE GRANULOCYTES ABS AUTO 0.07 High [facility] Immature granulocytes/100 WBC (Bld) 0.6 % High 0.0 - 0.5 % [facility] Interpretation and review of laboratory results Abnormal [facility] LYMPHOCYTES ABSOLUTE AUTO 3.6 [facility] Lymphocytes/100 WBC (Bld) 32.6 % 20.5 - 60.0 % [facility] MCH (RBC) [Entitic mass] 32.3 pg 26.7 - 34.0 pg [facility] MCHC (RBC) [Mass/Vol] 33.9 g/dL 29.9 - 35.2 g/dL [facility] MCV (RBC) [Entitic vol] 95.2 fL 81.0 - 99.0 fL [facility] MONOCYTES ABSOLUTE AUTO 0.8 [facility] Monocytes/100 WBC (Bld) 6.9 % 1.7 - 12.0 % [facility] NEUTROPHILS ABSOLUTE AUTO 6.2 [facility] Neutrophils/100 WBC (Bld) 55.4 % 43.0 - 75.0 % [facility] Platelet mean volume (Bld) [Entitic vol] 10.7 fL 9.5 - 13.5 fL [facility] TBH EO # 0.4 [facility] TBH PLT 193 [facility]H RBC 4.37 [facility] TBH WBC 11.1 High [facility] XR Knee - right 3 Viewson The [place] [id number] XRay Report Signed Patient: KARINA DE OLIVEIRA MR#: [id number] : 1965 Acct:[id number] Age/Sex: 58 / F ADM Date: 05/21/24 Loc: LAB Attending Dr: Ameena Vera NP Ordering Physician: Ameena Vera NP Date of Service: 05/21/24 Procedure(s): XR knee RT 3V Accession Number(s): [id number] cc: Ameena Vera NP The [place] [address] Patient Name: KARINA DE OLIVEIRA MRN: [facility]:[id number] date: 1965 Sex: F Assigned Patient Location: LAB Current Patient Location: LAB Accession/Order Number: [id number] Exam Date: 05/21/2024 13:21 Report Date: 05/21/2024 [...] Penny Jr., D.O.05/21/2024 1:21 PM Dictation Location: [place] [address] Electronically authenticated by: [id number] Y Date: 05/21/2024 13:21 Dictated By: Moustapha Penny M.D. Signed By: 05/21/24 1324 DD/ 1321 TD/TT: Trace Clerk: [facility] Radiology, Radiologist, MD - 05/21/2024 [place] [address] XRay Report Signed Patient: KARINA DE OLIVEIRA MR#: [id number] : 1965 Acct:[id number] Age/Sex: 58 / F ADM Date: 05/21/24 Loc: LAB Attending Dr: Ameena Vera NP Ordering Physician: Ameena Vera NP Date of Service: 05/21/24 Procedure(s): XR knee RT 3V Accession Number(s): [id number] cc: Ameena Vera NP [place] [address] Patient Name: KARINA DE OLIVEIRA MRN: [facility]:[id number] date: 1965 Sex: F Assigned Patient Location: LAB Current Patient Location: LAB Accession/Order Number: [id number] Exam Date: 05/21/2024 13:21 Report Date: 05/21/2024 [...] Penny Jr., D.O.05/21/2024 1:21 PM Dictation Location: [place] [address] Electronically authenticated by: [id number] Y Date: 05/21/2024 13:21 Dictated By: Moustapha Penny M.D. Signed By: 05/21/24 1324 DD/ 1321 TD/TT: Trace Clerk: [facility] Radiology Study observation (narrative) [facility] XR Knee - right 3 ViewsOrder ed By: Radiologist Radiology on 05-21-2024 [facility] Work Phone: HbA1c (Bld) [Mass fraction]o n 05-19-2024 Interpretation and review of laboratory results Abnormal [facility] - Hematology and Cell countson 05-19-2024 HbA1c (Bld) [Mass fraction] 6.70 % [facility] HbA1c (Bld) [Mass fraction]o n 03-30-2024 Interpretation and review of laboratory results Abnormal [facility] - Hematology and Cell countson 03-30-2024 HbA1c (Bld) [Mass fraction] 6.9 % [facility] MM TOMOSYNTHESIS SCREENING B Ion 03-18-2024 [place] [address] Mammography Report Signed Patient: KARINA DE OLIVEIRA MR#: [id number] : 1965 Acct:[id number] Age/Sex: 58 / F ADM Date: 03/18/24 Loc: MAMMO Attending Dr: RADHA BARCLAY Ordering Physician: RADHA BARCLAY Results: Date of Service: 03/18/24 Follow Up: Procedure(s): MM tomosynthesis screening BI Accession Number(s): [id number] cc: LOCO DRAKE SUSAN Patient Name: KARINA DE OLIVEIRA MR#: [id number] : 1965 Exam Date: 03/18/2024 Ordering Doctor: DR RADHA BARCLAY [facility] RADIOLOGY REPORT PROCEDURE: MM TOMOSYNTHESIS [...] at age 69. LOCATION: The [facility] BREAST COMPOSITION: There are scattered areas of [...] Signed By: 03/18/24 1454 DD/ 53 TD/TT: Trace Clerk: [facility] Radiology, Radiologist, MD - 03/18/2024 [place] [address] Mammography Report Signed Patient: KARINA DE OLIVEIRA MR#: [id number] : 1965 Acct:[id number] Age/Sex: 58 / F ADM Date: 03/18/24 Loc: MAMMO Attending Dr: RADHA BARCLAY Ordering Physician: RADHA BARCLAY Results: Date of Service: 03/18/24 Follow Up: Procedure(s): MM tomosynthesis screening BI Accession Number(s): [id number] cc: LOCO DRAKE SUSAN Patient Name: KARINA DE OLIVEIRA MR#: [id number] : 1965 Exam Date: 03/18/2024 Ordering Doctor: DR RADHA BARCLAY [facility] RADIOLOGY REPORT PROCEDURE: MM TOMOSYNTHESIS [...] at age 69. LOCATION: The [facility] BREAST COMPOSITION: There are scattered areas of [...] M.D. Signed By: 03/18/244 DD/ 53 TD/TT: Trace Clerk: [facility] Radiology Study observation (narrative) [facility] MM TOMOSYNTHESIS SCREENING B IOrdered By: Radiologist Radiology on 03-18-2024 [facility] Work Phone: ALL CBC WITH AUTO DIFFon BASOPHILS ABSOLUTE AUTO 0.1 [facility] Basophils/100 WBC (Bld) 0.4 % 0.2 - 2.0 % [facility] Eosinophils/100 WBC (Bld) 3.2 % 0.9 - 7.0 % [facility] Erythrocyte distribution width (RBC) [Ratio] 15.6 % High 11.0 - 15.0 % [facility] Hematocrit (Bld) [Volume fraction] 42.4 % 36.0 - 48.0 % [facility] Hemoglobin (Bld) [Mass/Vol] 13.9 g/dL 12.0 - 16.0 g/dL [facility] IMMATURE GRANULOCYTES ABS AUTO 0.09 High [facility] Immature granulocytes/100 WBC (Bld) 0.7 % High 0.0 - 0.5 % [facility] Interpretation and review of laboratory results Abnormal [facility] LYMPHOCYTES ABSOLUTE AUTO 3.5 [facility] Lymphocytes/100 WBC (Bld) 27.7 % 20.5 - 60.0 % [facility] MCH (RBC) [Entitic mass] 31.4 pg 26.7 - 34.0 pg [facility] MCHC (RBC) [Mass/Vol] 32.8 g/dL 29.9 - 35.2 g/dL [facility] MCV (RBC) [Entitic vol] 95.7 fL 81.0 - 99.0 fL [facility] MONOCYTES ABSOLUTE AUTO 0.9 High [facility] Monocytes/100 WBC (Bld) 7.4 % 1.7 - 12.0 % [facility] NEUTROPHILS ABSOLUTE AUTO 7.7 High [facility] Neutrophils/100 WBC (Bld) 60.6 % 43.0 - 75.0 % [facility] Platelet mean volume (Bld) [Entitic vol] 10.9 fL 9.5 - 13.5 fL [facility] TBH PLT 219 [facility] RBC 4.43 [facility] WBC 12.8 High [facility] XR LSPINE 2_3 VIEWSon 2022 XR LSPINE [...] Date: 2022-06-07 11:15 Normal [facility] CBC AUTO DIFFon 04-12-2022 BASO # 0.1 103/ul Normal 0.0-0.1 [facility] Comment on above: Performed By: #### C BC ####[facility] [address] [place] [address]Dr. Ricky Valenzuela Basophils/100 WBC (Bld) 0.5 % Normal 0.2-2.0 [facility] Comment on above: Performed By: #### C BC ####[facility] [address] [place] [id number]. Ricky Valenzuela EO # 0.3 103/ul Normal 0.0-0.7 [facility] Comment on above: Performed By: #### C BC ####[facility] [address] [place] [id number]. Ricky Valenzuela Eosinophils/100 WBC (Bld) 3.0 % Normal 0.9-7.0 [facility] Comment on above: Performed By: #### C BC ####[facility] [address] [place] [address]Dr. Ricky Valenzuela Erythrocyte distribution width (RBC) [Ratio] 14.8 % Normal 11.0-15.0 [facility] Comment on above: Performed By: #### C BC ####[facility] [address] [place], [place] [address]Dr. Ricky Valenzuela Hematocrit (Bld) [Volume fraction] 40.6 % Normal 36.0-48.0 [facility] Comment on above: Performed By: #### C BC ####[facility] [address] [place], [place] [address]Dr. Ricky Valenzuela Hemoglobin (Bld) [Mass/Vol] 13.5 g/dL Normal 12.0-16.0 [facility] Comment on above: Performed By: #### C BC ####[facility] [address] [place], [place] [address]Dr. Ricky Valenzuela IG # 0.16 10e3/ul Critically high 0.00-0.03 [facility] Comment on above: Performed By: #### C BC ####[facility] [address] [place], [place] [address]Dr. Ricky Valenzuela IG % 1.4 % Critically high 0.0-0.5 The [facility] Comment on above: Performed By: #### C BC ####[facility] [address] [place], [place] [address]Dr. Ricky Valenzuela LYMPH # 3.4 103/ul Normal 1.2-3.8 [facility] Comment on above: Performed By: #### C BC ####[facility] [address] [place], [place] [address]Dr. Ricky Valenzuela Lymphocytes/100 WBC (Bld) 30.4 % Normal 20.5-60.0 [facility] Comment on above: Performed By: #### C BC ####[facility] [address] [place] [id number]. Ricky Valenzuela MANUAL DIFF REQ NO Normal [facility] Comment on above: Performed By: #### C BC ####[facility] [address] [place] [id number]. Ricky Valenzuela MCH (RBC) [Entitic mass] 31.8 pg Normal 26.7-34.0 [facility] Comment on above: Performed By: #### C BC ####[facility] [address] [place] [address]Dr. Ricky Valenzuela MCHC (RBC) [Mass/Vol] 33.3 g/dL Normal 29.9-35.2 [facility] Comment on above: Performed By: #### C BC ####[facility] [address] [place], [place] [address]Dr. Ricky Valenzuela MCV (RBC) [Entitic vol] 95.5 fL Normal 81.0-99.0 [facility] Comment on above: Performed By: #### C BC ####[facility] [address] [place], [place] [address]Dr. Ricky Valenzuela MONO # 0.9 103/ul Critically high 0.3-0.8 [facility] Comment on above: Performed By: #### C BC ####[facility] [address] [place], [place] [address]Dr. Ricky Valenzuela Monocytes/100 WBC (Bld) 7.7 % Normal 1.7-12.0 [facility] Comment on above: Performed By: #### C BC ####[facility] [address] [place], [place] [address]Dr. Ricky Valenzuela NEUT # 6.3 103/ul Normal 1.4-6.5 [facility] Comment on above: Performed By: #### C BC ####[facility] [address] [place], [place] [address]Dr. Ricky Valenzuela Neutrophils/100 WBC (Bld) 57.0 % Normal 43.0-75.0 [facility] Comment on above: Performed By: #### C BC ####[facility] [address] [place] [id number]. Ricky Valenzuela Platelet mean volume (Bld) [Entitic vol] 9.8 fL Normal 9.5-13.5 [facility] Comment on above: Performed By: #### C BC ####[facility] [address] [place] [id number]. Ricky Valenzuela PLT 246 103/ul Normal 150-450 [facility] Comment on above: Performed By: #### C BC ####[facility] [address] [place] [address]Dr. Ricky Valenzuela RBC 4.25 106/ul Normal 4.20-5.40 [facility] Comment on above: Performed By: #### C BC ####[facility] [address] [place] [address]Dr. Ricky Valenzuela WBC 11.1 103/ul Critically high 4.0-11.0 [facility] Comment on above: Performed By: #### C BC ####[facility] [address] [place] [address]Dr. Ricky Valenzuela GLYCOHEMOGLOBIN A1Con 2022 ADA RECOMMENDATION SEE BELOW Normal [facility] Comment on above: Result Comment: ADA RECOMMENDED LIMIT 4.0 - 6.0 ADA THERAPEUTIC TARGET < 7.0 ACTION SUGGESTED > 7.0 Performed By: #### A 1C ####[facility] [address] [place], [place] [address]Dr. Ricky Valenzuela Glucose [Mass/Vol] 160 mg/dL Normal The [facility] Comment on above: Performed By: #### A 1C ####[facility] [address] [place] [id number]. Ricky Valenzuela HbA1c (Bld) [Mass fraction] 7.2 % Critically high 4.5-6.2 [facility] Comment on above: Performed By: #### A 1C ####[facility] [address] [place] [address]DrPasquale Ricky Nicolas MICROALBUMIN, RAND URon 03-0 mALB <1.3 Normal <=30.0 [facility] Comment on above: Performed By: #### M ALBR #### [facility] [address] [place] [address] Dr. Ricky Valenzuela PROF 14(COMP METB)on 023 Albumin [Mass/Vol] 3.3 g/dL Critically low 3.4-5.0 Th e [facility] Comment on above: Performed By: #### C MP #### [facility] [address] [place] [address] Dr. Ricky Valenzuela Albumin/Globulin [Mass ratio] 0.9 {ratio} Normal [facility] Comment on above: Performed By: #### C MP #### [facility] [address] [place] [address] Dr. Ricky Valenzuela ALP [Catalytic activity/Vol] 90 U/L Normal 46-116 [facility] Comment on above: Performed By: #### C MP #### [facility] [address] [place] [address] Dr. Ricky Valenzuela ALT [Catalytic activity/Vol] 42 U/L Normal 14-59 [facility] Comment on above: Performed By: #### C MP #### [facility] [address] [place] [address] Dr. Ricky Valenzuela Anion gap [Moles/Vol] 10.1 mmol/L Normal [facility] Comment on above: Performed By: #### C MP #### [facility] [address] [place] [address] Dr. Ricky Valenzuela AST [Catalytic activity/Vol] 21 U/L Normal 15-37 [facility] Comment on above: Performed By: #### C MP #### [facility] [address] [place] [address] Dr. Ricky Valenzuela Bilirubin [Mass/Vol] 0.3 mg/dL Normal 0.2-1.0 [facility] Comment on above: Performed By: #### C MP #### [facility] [address] [place] [address] Dr. Ricky Valenzuela Calcium [Mass/Vol] 9.8 mg/dL Normal 8.5-10.1 [facility] Comment on above: Performed By: #### C MP #### [facility] [address] [place] [address] Dr. Ricky Valenzuela Chloride [Moles/Vol] 99 mmol/L Normal 98-107 [facility] Comment on above: Performed By: #### C MP #### [facility] [address] [place] [address] Dr. Ricky Valenzuela CO2 [Moles/Vol] 33.7 mmol/L Critically high 21.0-32.0 [facility] Comment on above: Performed By: #### C MP #### [facility] [address] [place] [address] Dr. Ricky Valenzuela Creatinine [Mass/Vol] 0.94 mg/dL Normal 0.55-1.02 [facility] Comment on above: Performed By: #### C MP #### [facility] [address] [place] [address] Dr. Ricky Valenzuela EGFR-AF MEXICAN >60 Normal >=60 [facility] Comment on above: Performed By: #### C MP #### [facility] [address] [place] [address] Dr. Ricky Valenzuela EGFR-NON AF MEXICAN >60 Normal >=60 [facility] Comment on above: Performed By: #### C MP #### [facility] [address] [place] [address] Dr. Ricky Valenzuela Globulin (S) [Mass/Vol] 3.8 g/dL Normal [facility] Comment on above: Performed By: #### C MP #### [facility] [address] [place] [address] Dr. Ricky Valenzuela Glucose [Mass/Vol] 168 mg/dL Critically high 74-106 [facility] Comment on above: Performed By: #### C MP #### [facility] [address] [place] [address] Dr. Ricky Valenzuela Potassium [Moles/Vol] 4.8 mmol/L Normal 3.5-5.1 [facility] Comment on above: Performed By: #### C MP #### [facility] [address] [place], [place] [address] Dr. Ricky Valenzuela Protein [Mass/Vol] 7.1 g/dL Normal 6.4-8.2 [facility] Comment on above: Performed By: #### C MP #### [facility] [address] [place], [place] [address] Dr. Ricky Valenzuela Sodium [Moles/Vol] 138 mmol/L Normal 136-145 [facility] Comment on above: Performed By: #### C MP #### [facility] [address] [place], [place] [address] Dr. Ricky Valenzuela Urea nitrogen [Mass/Vol] 22.0 mg/dL Critically high 7.0-18.0 [facility] Comment on above: Performed By: #### C MP #### [facility] [address] [place], [place] [address] Dr. Ricky Valenzuela Urea nitrogen/Creatinine [Mass ratio] 23.4 mg/mg Normal [facility] Comment on above: Performed By: #### C MP #### [facility] [address] [place], [place] [address] Dr. Ricky Valenzuela Cytologyon 08-30-2021 Cytology (NOTE) INTERPRETATION Vaginal material, (ThinPrep vial, Imaging-assisted review): Specimen Adequacy: Satisfactory for evaluation. Descriptive Diagnosis: Negative for intraepithelial lesion or malignancy. Orbitread Operator: CLARK Delacruz(ASCP) Electronically Signed Out zackary/09/07/2021 Source: A: Vaginal material, (ThinPrep vial, Imaging-assisted review) Clinical History Hysterectomy Surgery: Salpingostomy; Ovary removal Z12.4 Encounter for screening for malignant neoplasm of cervix GYNECOLOGIC CYTOLOGY REPORT Patient Name: KARINA DE OLIVEIRA [facility] Rec: [id number] Path Number: [id number] [facility] [address] [place] [id number] Normal [facility] Comment on above: Performed By: #### P PPVP #### [facility] [address] [place] [id number] [employer]: Luca Cummins MD CBC AUTO DIFFon 08-09-2021 BASO # 0.1 103/ul Normal 0.0-0.1 [facility] Comment on above: Performed By: #### C BC #### [facility] [address] [address] [address] Ricky Valenzuela Basophils/100 WBC (Bld) 0.8 % Normal 0.2-2.0 [facility] Comment on above: Performed By: #### C BC #### [facility] [address] [address] [address] Ricky Valenzuela EO # 0.2 103/ul Normal 0.0-0.7 [facility] Comment on above: Performed By: #### C BC #### [facility] [address] [place] [address] Dr. Ricky Valenzuela Eosinophils/100 WBC (Bld) 2.1 % Normal 0.9-7.0 [facility] Comment on above: Performed By: #### C BC #### [facility] [address] [place] [address] Dr. Ricky Valenzuela Erythrocyte distribution width (RBC) [Ratio] 15.2 % Critically high 11.0-15.0 [facility] Comment on above: Performed By: #### C BC #### [facility] [address] [place] [address] Dr. Ricky Valenzuela Hematocrit (Bld) [Volume fraction] 41.5 % Normal 36.0-48.0 [facility] Comment on above: Performed By: #### C BC #### [facility] [address] [address] [address] Ricky Valenzuela Hemoglobin (Bld) [Mass/Vol] 13.5 g/dL Normal 12.0-16.0 [facility] Comment on above: Performed By: #### C BC #### [facility] [address] [place] [address] Dr. Ricky Valenzuela IG # 0.42 10e3/ul Critically high 0.00-0.03 [facility] Comment on above: Performed By: #### C BC #### [facility] [address] [place] [address] Dr. Ricky Valenzuela IG % 3.8 % Critically high 0.0-0.5 [facility] Comment on above: Performed By: #### C BC #### [facility] [address] [place] [address] Dr. Ricky Valenzuela LYMPH # 3.3 103/ul Normal 1.2-3.8 [facility] Comment on above: Performed By: #### C BC #### [facility] [address] [place] [address] Dr. Ricky Valenzuela Lymphocytes/100 WBC (Bld) 29.1 % Normal 20.5-60.0 [facility] Comment on above: Performed By: #### C BC #### [facility] [address] [place] [address] Dr. Ricky Valenzuela MANUAL DIFF REQ NO Normal [facility] Comment on above: Performed By: #### C BC #### [facility] [address] [place] [address] Dr. Ricky Valenzuela MCH (RBC) [Entitic mass] 32.4 pg Normal 26.7-34.0 [facility] Comment on above: Performed By: #### C BC #### [facility] [address] [place] [address] Dr. Ricky Valenzuela MCHC (RBC) [Mass/Vol] 32.5 g/dL Normal 29.9-35.2 [facility] Comment on above: Performed By: #### C BC #### [facility] [address] [place] [address] Dr. Ricky Valenzuela MCV (RBC) [Entitic vol] 99.5 fL Critically high 81.0-99.0 [facility] Comment on above: Performed By: #### C BC #### [facility] [address] [place] [address] Dr. Ricky Valenzuela MONO # 0.8 103/ul Normal 0.3-0.8 [facility] Comment on above: Performed By: #### C BC #### [facility] [address] [place] [address] Dr. Ricky Valenzuela Monocytes/100 WBC (Bld) 7.5 % Normal 1.7-12.0 [facility] Comment on above: Performed By: #### C BC #### [facility] [address] [place] [address] Dr. Ricky Valenzuela NEUT # 6.3 103/ul Normal 1.4-6.5 [facility] Comment on above: Performed By: #### C BC #### [facility] [address] [place] [address] Dr. Ricky Valenzuela Neutrophils/100 WBC (Bld) 56.7 % Normal 43.0-75.0 [facility] Comment on above: Performed By: #### C BC #### [facility] [address] [place] [address] Dr. Ricky Valenzuela Platelet mean volume (Bld) [Entitic vol] 9.8 fL Normal 9.5-13.5 [facility] Comment on above: Performed By: #### C BC #### [facility] [address] [place] [address] Dr. Ricky Valenzuela PLT 265 103/ul Normal 150-450 [facility] Comment on above: Performed By: #### C BC #### [facility] [address] [place] [address] Dr. Ricky Valenzuela RBC 4.17 106/ul Critically low 4.20-5.40 [facility] Comment on above: Performed By: #### C BC #### [facility] [address] [place] [address] Dr. Ricky Valenzuela WBC 11.2 103/ul Critically high 4.0-11.0 [facility] Comment on above: Performed By: #### C BC #### [facility] [address] [place] [address] Dr. Ricky Valenzuela GLYCOHEMOGLOBIN A1Con 2021 ADA RECOMMENDATION SEE BELOW Normal [facility] Comment on above: Result Comment: ADA RECOMMENDED LIMIT 4.0 - 6.0 ADA THERAPEUTIC TARGET < 7.0 ACTION SUGGESTED > 7.0 Performed By: #### A 1C ####[facility] [address] [place], [place] [address]AbDr. Ricky Valenzuela Glucose [Mass/Vol] 183 mg/dL Normal [facility] Comment on above: Performed By: #### A 1C ####[facility] [address] [place], [place] [address]OnDr. Ricky Valenzuela HbA1c (Bld) [Mass fraction] 8.0 % Critically high 4.5-6.2 [facility] Comment on above: Performed By: #### A 1C ####[facility] [address] [place], [place] [address]BxDr. Ricky Valenzuela LIPID PROFILEon 08-09-2021 CHOL-HDL RATIO NORM SEE BELOW Normal [facility] Comment on above: Result Comment: 3.3 - 4.4 LOW RISK 4.4 - 7.1 AVERAGE RISK 7.1 - 11.0 MODERATE RISK >11.0 HIGH RISK Performed By: #### C MP, LIPID #### [facility] [address] [address] [address] Ricky Valenzuela Cholesterol [Mass/Vol] 239 mg/dL Critically high <=200 [facility] Comment on above: Performed By: #### C MP, LIPID #### [facility] [address] [address] [address] Ricky Valenzuela Cholesterol in HDL [Mass/Vol] 36 mg/dL Critically low 40-60 [facility] Comment on above: Performed By: #### C MP, LIPID #### [facility] [address] [address] [address] Ricky Valenzuela Cholesterol in LDL [Mass/Vol] 164.2 mg/dL Normal [facility] Comment on above: Performed By: #### C MP, LIPID #### [facility] [address] [address] [address] Ricky Valenzuela Cholesterol.total/Ch olesterol in HDL [Mass ratio] 6.6 {ratio} Normal [facility] Comment on above: Performed By: #### C MP, LIPID #### [facility] [address] [address] [address] Ricky Valenzuela HDL NORMAL > or = 60 mg/dl - LO W CARDIOVASCULAR RISK <40 mg/dl - HIGH CARDIOVASCULAR RISK Normal [facility] Comment on above: Performed By: #### C MP, LIPID #### [facility] [address] [address] [address] Ricky Valenzuela LDL CALC NORMAL SEE BELOW Normal [facility] Comment on above: Result Comment: <100 mg/dl OPTIMAL 100 - 129 mg/dl NEAR OR ABOVE OPTIMAL 130 - 159 mg/dl BORDERLINE HIGH 160 - 189 mg/dl HIGH >190 mg/dl VERY HIGH Performed By: #### C MP, LIPID #### [facility] [address] [address] [address] Ricky Valenzuela Triglyceride [Mass/Vol] 194 mg/dL Critically high <=150 [facility] Comment on above: Performed By: #### C MP, LIPID #### [facility] [address] [address] [address] Ricky Valenzuela VLDL CALC 38.8 mg/dL Normal [facility] Comment on above: Performed By: #### C MP, LIPID #### [facility] [address] [address] [address] Ricky Valenzuela MICROALBUMIN, RAND URon 07-13 mALB 13.1 mg/L Normal <=30.0 [facility] Comment on above: Performed By: #### M ALBR ####[facility] [address] [place], [place] [address]WbDr. Ricky Valenzuela PROF 14(COMP METB)on 022 Albumin [Mass/Vol] 3.3 g/dL Critically low 3.4-5.0 [facility] Comment on above: Performed By: #### C MP, LIPID #### [facility] [address] [address] [address] Ricky Valenzuela Albumin/Globulin [Mass ratio] 0.8 {ratio} Normal [facility] Comment on above: Performed By: #### C MP, LIPID #### [facility] [address] [place], [place] [address] Dr. Ricky Valenzuela ALP [Catalytic activity/Vol] 93 U/L Normal 46-116 [facility] Comment on above: Performed By: #### C MP, LIPID #### [facility] [address] [address] [address] Ricky Valenzuela ALT [Catalytic activity/Vol] 37 U/L Normal 14-59 [facility] Comment on above: Performed By: #### C MP, LIPID #### [facility] [address] [address] [address] Ricky Valenzuela Anion gap [Moles/Vol] 10.9 mmol/L Normal [facility] Comment on above: Performed By: #### C MP, LIPID #### [facility] [address] [address] [address] Ricky Valenzuela AST [Catalytic activity/Vol] 10 U/L Critically low 15-37 [facility] Comment on above: Performed By: #### C MP, LIPID #### [facility] [address] [address] [address] Ricky Valenzuela Bilirubin [Mass/Vol] 0.2 mg/dL Normal 0.2-1.0 [facility] Comment on above: Performed By: #### C MP, LIPID #### [facility] [address] [address] [address] Ricky Valenzuela Calcium [Mass/Vol] 9.0 mg/dL Normal 8.5-10.1 [facility] Comment on above: Performed By: #### C MP, LIPID #### [facility] [address] [address] [address] Ricky Valenzuela Chloride [Moles/Vol] 100 mmol/L Normal 98-107 [facility] Comment on above: Performed By: #### C MP, LIPID #### [facility] [address] [address] [address] Ricky Valenzuela CO2 [Moles/Vol] 32.2 mmol/L Critically high 21.0-32.0 [facility] Comment on above: Performed By: #### C MP, LIPID #### [facility] [address] [address] [address] Ricky Valenzuela Creatinine [Mass/Vol] 0.95 mg/dL Normal 0.55-1.02 [facility] Comment on above: Performed By: #### C MP, LIPID #### [facility] [address] [address] [address] Ricky Valenzuela EGFR-AF MEXICAN >60 Normal >=60 [facility] Comment on above: Performed By: #### C MP, LIPID #### [facility] [address] [address] [address] Ricky Valenzuela EGFR-NON AF MEXICAN >60 Normal >=60 [facility] Comment on above: Performed By: #### C MP, LIPID #### [facility] [address] [address] [address] Ricky Valenzuela Globulin (S) [Mass/Vol] 4.2 g/dL Normal [facility] Comment on above: Performed By: #### C MP, LIPID #### [facility] [address] [address] [address] Ricky Valenzuela Glucose [Mass/Vol] 200 mg/dL Critically high 74-106 [facility] Comment on above: Performed By: #### C MP, LIPID #### [facility] [address] [address] [address] Ricky Valenzuela Potassium [Moles/Vol] 4.1 mmol/L Normal 3.5-5.1 [facility] Comment on above: Performed By: #### C MP, LIPID #### [facility] [address] [address] [address] Ricky Valenzuela Protein [Mass/Vol] 7.5 g/dL Normal 6.4-8.2 [facility] Comment on above: Performed By: #### C MP, LIPID #### [facility] [address] [address] [address] Ricky Valenzuela Sodium [Moles/Vol] 139 mmol/L Normal 136-145 [facility] Comment on above: Performed By: #### C MP, LIPID #### [facility] [address] [address] [address] Ricky Valenzuela Urea nitrogen [Mass/Vol] 13.0 mg/dL Normal 7.0-18.0 [facility] Comment on above: Performed By: #### C MP, LIPID #### [facility] [address] [place], [place] [address] Dr. Ricky Valenzuela Urea nitrogen/Creatinine [Mass ratio] 13.7 mg/mg Normal [facility] Comment on above: Performed By: #### C MP, LIPID #### [facility] [address] [place], [place] [address] Dr. Ricky Valenzuela POINT OF CARE GLUCOSEon 06-12 Glucose [Mass/Vol] 176 mg/dL Critically high 74-106 [facility] Comment on above: Performed By: #### P OCGLUC #### [facility] [address] [address] [address] Ricky Valenzuela Vital Signs Date Time Vital Sign Value Performing Clinician Facility 08-20-2024 11:10-0400 Diastolic blood pressure 58 mm[Hg] Ameena Vera 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: [facility] 08-20-2024 11:10-0400 Systolic blood pressure 90 mm[Hg] Ameena Vera 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: [facility] 08-20-2024 10:37-0400 Body mass index (BMI) [Ratio] 39.74 kg/m2 Ameena Vera 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: [facility] 08-20-2024 10:37-0400 Body temperature 98.49 [degF] Ameena Vera 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: [facility] 08-20-2024 10:37-0400 Body weight 96.98 kg Ameena Chuy 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: [facility] 08-20-2024 10:37-0400 Heart rate 101 /min Ameena Vera 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: [facility] 08-20-2024 10:37-0400 Respiratory rate 18 /min Ameena Vera 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: [facility] 08-20-2024 10:37-0400 SaO2% (BldA) [Mass fraction] 93 % Ameena Vera 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: [facility] 07-29-2024 14:08-0400 Body height 156.2 cm Kasi Bennett MD Work Phone: [facility] 07-29-2024 14:08-0400 Body mass index (BMI) [Ratio] 39.04 kg/m2 Kasi Bennett MD Work Phone: [facility] 07-29-2024 14:08-0400 Body weight 95.25 kg Kasi Bennett MD Work Phone: [facility] 07-29-2024 14:08-0400 Diastolic blood pressure 64 mm[Hg] Kasi Bennett MD Work Phone: [facility] 07-29-2024 14:08-0400 Heart rate 86 /min Kasi Bennett MD Work Phone: [facility] 07-29-2024 14:08-0400 Respiratory rate 18 /min Kasi Bennett MD Work Phone: [facility] 07-29-2024 14:08-0400 SaO2% (BldA) [Mass fraction] 93 % Kasi Bennett MD Work Phone: [facility] 07-29-2024 14:08-0400 Systolic blood pressure 100 mm[Hg] Kasi Bennett MD Work Phone: [facility] 05-28-2024 13:16-0400 Body height 154.94 cm [facility] 05-28-2024 13:16-0400 Body mass index (BMI) [Ratio] 39.4 kg/m2 [facility] 05-28-2024 13:16-0400 Body weight 94.8 kg [facility] 05-19-2024 11:10-0400 Body height 157.5 cm Ameena Vera 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: [facility] 05-19-2024 11:10-0400 Body mass index (BMI) [Ratio] 39.03 kg/m2 Ameena Davisholz 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: [facility] 05-19-2024 11:10-0400 Body temperature 98.29 [degF] Ameena Davisholz 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: [facility] 05-19-2024 11:10-0400 Body weight 96.8 kg Ameena Pohholz 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: [facility] 05-19-2024 11:10-0400 Diastolic blood pressure 80 mm[Hg] Ameena Pohholz 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: [facility] 05-19-2024 11:10-0400 Heart rate 91 /min Ameena Pohholz 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: [facility] 05-19-2024 11:10-0400 Respiratory rate 18 /min Ameena Pohholz 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: [facility] 05-19-2024 11:10-0400 SaO2% (BldA) [Mass fraction] 96 % Ameena Ryanholz 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: [facility] 05-19-2024 11:10-0400 Systolic blood pressure 116 mm[Hg] Ameena Pohholz 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: [facility] 04-21-2024 13:08-0400 Body height 157.5 cm Za Tikamor 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: [facility] 04-21-2024 13:08-0400 Body mass index (BMI) [Ratio] 39.51 kg/m2 Za Gillmor 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: [facility] 04-21-2024 13:08-0400 Body weight 97.98 kg Za Gillmor 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: [facility] 04-21-2024 13:08-0400 Diastolic blood pressure 86 mm[Hg] Za Gillmor 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: [facility] 04-21-2024 13:08-0400 Heart rate 96 /min Za Gillmor 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: [facility] 04-21-2024 13:08-0400 SaO2% (BldA) [Mass fraction] 93 % Za Wilkerson 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: [facility] 04-21-2024 13:08-0400 Systolic blood pressure 148 mm[Hg] Za Wilkerson 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: [facility] 03-30-2024 09:40-0500 Body height 157.5 cm Sonam Drake 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: [facility] 03-30-2024 09:40-0500 Body mass index (BMI) [Ratio] 39.51 kg/m2 Sonam Drake 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: [facility] 03-30-2024 09:40-0500 Body temperature 97.3 [degF] Sonam Drake 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: [facility] 03-30-2024 09:40-0500 Body weight 97.98 kg Sonam Drake 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: [facility] 03-30-2024 09:40-0500 Diastolic blood pressure 74 mm[Hg] Sonam Drake 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: [facility] 03-30-2024 09:40-0500 Heart rate 76 /min Sonam Drake 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: [facility] 03-30-2024 09:40-0500 Respiratory rate 16 /min Sonam Drake 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: [facility] 03-30-2024 09:40-0500 SaO2% (BldA) [Mass fraction] 98 % Sonam Drake 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: [facility] 03-30-2024 09:40-0500 Systolic blood pressure 130 mm[Hg] Sonam Drake 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: [facility] 03-03-2024 10:13-0500 Body height 157.5 cm Sonam Drake 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: [facility] 03-03-2024 10:13-0500 Body mass index (BMI) [Ratio] 39.51 kg/m2 Sonam Drake 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: [facility] 03-03-2024 10:13-0500 Body temperature 97.2 [degF] Sonam Drake 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: [facility] 03-03-2024 10:13-0500 Body weight 97.98 kg Sonam Drake 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: [facility] 03-03-2024 10:13-0500 Diastolic blood pressure 76 mm[Hg] Sonam Drake 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: [facility] 03-03-2024 10:13-0500 Heart rate 84 /min Sonam Drake 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: [facility] 03-03-2024 10:13-0500 Respiratory rate 16 /min Sonam Drake 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: [facility] 03-03-2024 10:13-0500 SaO2% (BldA) [Mass fraction] 96 % Sonam Drake 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: [facility] 03-03-2024 10:13-0500 Systolic blood pressure 120 mm[Hg] Sonam Drake 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: [facility] 12-31-2023 10:06-0500 Body height 157.5 cm Sivan Solo DO Work Phone: [facility] 12-31-2023 10:06-0500 Body mass index (BMI) [Ratio] 39.14 kg/m2 Sivan Solo DO Work Phone: [facility] 12-31-2023 10:06-0500 Body weight 97.07 kg Sivan Solo DO Work Phone: [facility] 12-31-2023 10:06-0500 Diastolic blood pressure 72 mm[Hg] Sivan Solo DO Work Phone: [facility] 12-31-2023 10:06-0500 Heart rate 95 /min Sivan Solo DO Work Phone: [facility] 12-31-2023 10:06-0500 SaO2% (BldA) [Mass fraction] 97 % Sivan Solo DO Work Phone: [facility] 12-31-2023 10:06-0500 Systolic blood pressure 118 mm[Hg] Sivan Solo DO Work Phone: [facility] 12-30-2023 10:46-0500 Body mass index (BMI) [Ratio] 40.06 kg/m2 Sonam Drake 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: [facility] 12-30-2023 10:46-0500 Body weight 99.34 kg Sonam Drake 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: [facility] 12-30-2023 10:46-0500 Diastolic blood pressure 74 mm[Hg] Sonam Drake 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: [facility] 12-30-2023 10:46-0500 Heart rate 97 /min Sonam Drake 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: [facility] 12-30-2023 10:46-0500 SaO2% (BldA) [Mass fraction] 98 % Sonam Drake 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: [facility] 12-30-2023 10:46-0500 Systolic blood pressure 98 mm[Hg] Sonam Drake 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: [facility] 10-03-2023 10:07-0400 Body height 157.5 cm Sonam Drake 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: [facility] 10-03-2023 10:07-0400 Body mass index (BMI) [Ratio] 39.32 kg/m2 Sonam Drake 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: [facility] 10-03-2023 10:07-0400 Body temperature 97.5 [degF] Sonam Drake 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: [facility] 10-03-2023 10:07-0400 Body weight 97.52 kg Sonam Drake 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: [facility] 10-03-2023 10:07-0400 Diastolic blood pressure 70 mm[Hg] Sonam Drake 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: [facility] 10-03-2023 10:07-0400 Heart rate 107 /min Sonam Drake 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: [facility] Comment on above: 97% O2 10-03-2023 10:07-0400 Systolic blood pressure 90 mm[Hg] Sonam Drake 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: [facility] 01-18-2023 09:10-0500 Body height 156.21 cm Elle Hendricks Other [employer] Other 01-18-2023 09:10-0500 Body mass index (BMI) [Ratio] 42.82 kg/m2 Elle Hendricks Other [facility] Other 01-18-2023 09:10-0500 Body temperature 98.2 [degF] Elle Hendricks Other [facility] Other 01-18-2023 09:10-0500 Body weight 104.51 kg Elle Hendricks Other [facility] Other 01-18-2023 09:10-0500 Diastolic blood pressure 92 mm[Hg] Elle Hendricks Other [facility] Other 01-18-2023 09:10-0500 Respiratory rate 18 /min Elle Hendricks Other [facility] Other 01-18-2023 09:10-0500 SaO2% (BldA) [Mass fraction] 97 % Elle Hendricks Other [facility] Other 01-18-2023 09:10-0500 Systolic blood pressure 145 mm[Hg] Elle Hendricks Other [facility] Other Encounters Encounter Date Encounter Type Care [...] Office outpatient visit 25 minutes Ameena Vera 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: [facility] Comment on above: Type 2 diabetes cory itus with diabetic microalbuminuria, without long-term current use of insulin (HCC) (Primary Dx); Essential hypertension; Morbid (severe) obesity due to excess calories (E66.01); Cigarette nicotine dependence without complication; Chronic gout of multiple sites, unspecified cause; Gastroesophageal reflux disease without esophagitis; Bilateral lower extremity edema Start: 08-05-2024 End: 08-05-2024 Refill Ameenaovidio Vera 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: [facility] Comment on above: Chronic gout of mult iple sites, unspecified cause (Primary Dx) Type 2 diabetes cory itus with diabetic microalbuminuria, without long-term current use of insulin (HCC) Start: 08-02-2024 End: 08-04-2024 Refill Jose Chandler MD Work Phone: [facility] Comment on above: Lumbar back pain Start: 07-29-2024 End: 07-29-2024 Bamboo flowsheet Kasi Bennett MD Work Phone: [facility] Start: 07-29-2024 End: 07-29-2024 Bamboo flowsheet Kasi Bennett MD Work Phone: [facility] Start: 07-29-2024 End: 07-29-2024 Office outpatient new 45 minutes Kasi Bennett MD Work Phone: [facility] Comment on above: Hypercalcemia (Prima ry Dx); Low serum parathyroid hormone (PTH); Vitamin D deficiency Start: 07-29-2024 End: 07-29-2024 ambulatory KASI BENNETT Not Available Start: 07-26-2024 End: 07-27-2024 Refill Ameena Aicyessicaz 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: [facility] Comment on above: Lumbar back pain Start: 07-22-2024 End: 07-22-2024 Refill Jose Chandler MD Work Phone: [facility] Comment on above: Type 2 diabetes cory itus with diabetic microalbuminuria, without long-term current use of insulin ([facility]) Start: 07-14-2024 End: 07-14-2024 Orders Only Ameena Chuy 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: [facility] Comment on above: Low serum parathyroi d hormone (PTH) (Primary Dx) Start: 07-09-2024 End: 07-09-2024 Clinisync Result Encounter Ameena Aicyessicaz 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: [facility] External Department Unsolicited Start: 07-09-2024 End: 07-09-2024 Clinisync Result Encounter Ameena Aichholz 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: [facility] External Department Unsolicited Start: 06-23-2024 End: 06-23-2024 Refill Ameena Aichholz 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: [facility] Comment on above: Diabetic polyneuropa thy associated with type 2 diabetes mellitus ([facility]) Start: 06-22-2024 End: 06-22-2024 ambulatory Tanya Crowley MD Facility:[facility] Start: 06-11-2024 End: 06-11-2024 Refill Ameena Vera 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: [facility] Comment on above: Acute non-recurrent sinusitis of other sinus (Primary Dx) Start: 06-03-2024 End: 06-03-2024 Orders Only Ameena Vera 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: [facility] Comment on above: Hypercalcemia (Prima ry Dx); Low serum parathyroid hormone (PTH) Start: 05-28-2024 End: 05-28-2024 Patient encounter procedure [facility] Work Phone: Start: 05-28-2024 End: 05-28-2024 Patient encounter procedure [facility] [place] [facility] Start: 05-28-2024 End: 05-28-2024 ambulatory Lui Banks II Facility:[facility] Start: 05-22-2024 End: 05-22-2024 Orders Only Ameena Vera 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: [facility] Comment on above: Hypercalcemia (Prima ry Dx) Start: 05-21-2024 End: 05-21-2024 Clinisync Result Encounter Ameena Chuy 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: [facility] External Department Unsolicited Start: 05-21-2024 End: 05-21-2024 Clinisync Result Encounter Ameena Chuy 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: [facility] External Department Unsolicited Start: 05-19-2024 End: 05-19-2024 Bamboo flowsheet Ameena Vera 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: [facility] Start: 05-19-2024 End: 05-19-2024 Bamboo flowsheet Ameena Vera 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: [facility] Start: 05-19-2024 End: 05-19-2024 ambulatory AMEENA CHUY Not Available Start: 05-19-2024 End: 05-19-2024 Office outpatient visit 25 minutes Ameena Vera 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: [facility] Comment on above: Type 2 diabetes cory itus with diabetic microalbuminuria, without long-term current use of insulin ([facility]) (Primary Dx); Morbid (severe) obesity due to excess calories ([facility]); Other hyperlipidemia; Body mass index (BMI) 39.0-39.9, adult; JANETT (obstructive sleep apnea); Bilateral lower extremity edema; Migraine with aura and without status migrainosus, not intractable ([facility]); Cigarette nicotine dependence without complication; Hypercalcemia; Essential hypertension; Elevated blood uric acid level; Lumbar back pain; Gastroesophageal reflux disease without esophagitis; Chronic gout of multiple sites, unspecified cause; Acute pain of right knee; Diabetic polyneuropathy associated with type 2 diabetes mellitus ([facility]) Start: 05-06-2024 End: 05-06-2024 Mikkiill Jose Chandler MD Work Phone: [facility] Comment on above: Bilateral lower extr emity edema (Primary Dx) Start: 04-21-2024 End: 04-21-2024 Bamboo flowsheet Za Wilkerson 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: [facility] Start: 04-21-2024 End: 04-21-2024 Bamboo flowsheet Za Wilkerson 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: [facility] Start: 04-21-2024 End: 04-21-2024 ambulatory ZA WILKERSON Not Available Start: 04-21-2024 End: 04-21-2024 Office outpatient visit 25 minutes Za Wilkerson 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: [facility] Comment on above: JANETT (obstructive sle ep apnea) (Primary Dx); Hypersomnia; Snoring; Primary insomnia; Tobacco abuse Start: 03-30-2024 End: 03-30-2024 Bamboo flowsheet Sonam Drake 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: [facility] Start: 03-30-2024 End: 03-30-2024 Bamboo flowsheet Sonam Drake 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: [facility] Start: 03-30-2024 End: 03-30-2024 Office outpatient visit 15 minutes Alicia Monroy MD Work Phone: [facility] Comment on above: Hidradenitis suppura tiva (Primary Dx); Lentigines; Melanocytic nevus of trunk; Congenital non-neoplastic nevus; History of basal cell carcinoma Start: 03-30-2024 End: 03-30-2024 Refill Jolly Castaneda MA [facility] Comment on above: Type 2 diabetes cory itus with diabetic microalbuminuria, without long-term current use of insulin (CMS/HCC) Start: 03-30-2024 End: 03-30-2024 Office outpatient visit 15 minutes Sonam Drake 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: [facility] Comment on [...] Start: 03-16-2024 End: 03-16-2024 Refill Sonam Drake 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: [facility] Comment on above: Gastroesophageal ref lux disease without esophagitis Start: 03-09-2024 End: 03-09-2024 Refill Sonam Drake 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: [facility] Comment on above: Osteoporosis, unspec ified osteoporosis type, unspecified pathological fracture presence ([facility]) Start: 03-03-2024 End: 03-03-2024 Bamboo flowsheet Sonam Princek 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: [facility] Start: 03-03-2024 End: 03-03-2024 Bamboo flowsheet Sonam Princek 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: [facility] Start: 03-03-2024 End: 03-03-2024 ambulatory SONAM PRINCEK Not Available Start: 03-03-2024 End: 03-03-2024 Office outpatient visit 10 minutes Sonamaislinn Drake 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: [facility] Comment on above: Upper respiratory in fection with cough and congestion (Primary Dx); Lumbar back pain; Migraine with aura and without status migrainosus, not intractable ([facility]); Type 2 diabetes mellitus with diabetic microalbuminuria, without long-term current use of insulin ([facility]); Diabetic polyneuropathy associated with type 2 diabetes mellitus ([facility]); Other hyperlipidemia ([facility]) Start: 01-30-2024 End: 01-30-2024 Refill Jolly Castaneda MA [facility] Comment on above: Lumbar back pain (Pr imary Dx); Type 2 diabetes mellitus with diabetic microalbuminuria, without long-term current use of insulin ([facility]) Start: 01-14-2024 End: 01-14-2024 Refill Jolly Castaneda MA [facility] Comment on above: Lumbar back pain Start: 12-31-2023 End: 12-31-2023 Clinisync Result Encounter Sonam Drake 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: [facility] External Department Unsolicited Start: 12-31-2023 End: 12-31-2023 Clinisync Result Encounter Sonam Princek 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: [facility] Unsolicited Start: 12-31-2023 End: 12-31-2023 Office consultation new/estab patient 60 min Sivan Banda DO Work Phone: [facility] [address] Comment on above: JANETT (obstructive sle ep apnea) (Primary Dx); Hypersomnia; Snoring; Primary insomnia; Tobacco abuse Start: 12-31-2023 End: 12-31-2023 ambulatory SIVAN BANDA Not Available Start: 12-30-2023 End: 12-30-2023 Bamboo flowsheet Sonam Drake 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: [facility] Start: 12-30-2023 End: 12-30-2023 Bamboo flowsheet Sonam Drake 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: [facility] Start: 12-30-2023 End: 12-30-2023 Office outpatient visit 15 minutes Sonam Princek 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: [facility] Comment on above: Type 2 diabetes cory itus with diabetic microalbuminuria, without long-term current use of insulin ([facility]) (Primary Dx); Essential hypertension; Other hyperlipidemia (CMS/[facility]); Snoring; Mixed urge and stress incontinence Start: 12-30-2023 End: 12-30-2023 ambulatory SONAM DRAKE Not Available Start: 12-17-2023 End: 12-17-2023 Refill Jolly Castaneda MA [facility] Comment on above: Migraine with aura a nd without status migrainosus, not intractable (CMS/[facility]); Diabetic polyneuropathy associated with type 2 diabetes mellitus ([facility]/HCC) Start: 12-17-2023 End: 12-18-2023 Refill Sonam Drake 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: [facility] Comment on [...] 10-03-2023 End: 10-03-2023 Bamboo flowsheet Sonam Drake 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: [facility] Start: 10-03-2023 End: 10-03-2023 Bamboo flowsheet Sonam Princek 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: [facility] Start: 10-03-2023 End: 10-03-2023 ambulatory SONAM MARRTRICK Not Available Start: 10-03-2023 End: 10-03-2023 Office outpatient visit 25 minutes oSnam Drake 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: [facility] Comment on [...] incontinence; Snoring Start: 04-30-2023 End: 04-30-2023 ambulatory [facility] Work Phone: Start: 04-30-2023 End: 04-30-2023 Patient encounter procedure [facility] [place] [facility] Work Phone: Start: 03-21-2023 Orders Only Shaikh Maricel HOLLIS Work Phone: [facility] Comment on above: Diabetic polyneuropa thy associated with type 2 diabetes mellitus (CMS/HCC) (Primary Dx) Start: 03-19-2023 End: 03-19-2023 ambulatory Ana Luisa Curtis Other [employer] Other Start: 03-19-2023 Office outpatient vi sit 15 minutes Ana Luisa Calvey [facility] [place] [facility] Start: 01-23-2023 End: 01-23-2023 ambulatory Ana Luisa Calvey Other [employer] Other Start: 01-23-2023 Office outpatient vi sit 15 minutes Ana Luisa Calvey [facility] [place] [facility] Start: 01-18-2023 End: 01-18-2023 ambulatory Elle Ruthie Other [employer] Other Start: 01-18-2023 Office outpatient vi sit 15 minutes Elle Ruthie [facility] Start: 09-19-2022 End: 09-19-2022 ambulatory Ana Luisa Calvey Other [employer] Other Start: 09-19-2022 Telephone encounter Ana Luisa Curtis [facility] [place] [facility] Start: 07-12-[address] JONATHAN EDWARDS Facili ty:[facility] Start: 06-07-2022 End: 06-08-[address] JONATHAN EDWARDS Facility:[facility] Start: 05-02-2022 End: 05-02-2022 ambulatory Ana Luisa Julianosteve Other [employer] Other Start: 05-02-2022 Office outpatient ne w 30 minutes Ana Luisa Calvey [facility] [place] [facility] Start: 04-12-2022 End: 04-13-[address] JONATHAN EDWARDS Facility:[facility] Start: 03-08-2022 End: 03-09-[address] JONATHAN EDWARDS Facility:[facility] Start: 02-16-2022 End: 02-17-[address] JONATHAN EDWARDS Facility:[facility] Start: 02-09-2022 End: 02-10-[address] RICARDO HOLM . Facility:[facility] Start: 11-16-2021 End: 11-17-[address] JONATHAN EDWARDS Facility:[facility] Start: 11-01-2021 End: 11-02-2021 ambulatory CRYS Giordano Facility:[facility] Start: 08-30-2021 End: 08-31-2021 ambulatory RADHA BARCLAY [facility] Start: 08-30-2021 End: 08-30-2021 Subsequent hospital visit by physician Sr House DO Work Phone: [facility] Comment on above: Routine cervical sme ar Start: 08-16-2021 Encounter for genera l adult medical examination without abnormal findings DR RICARDO HOLM . [facility] Start: 08-09-2021 End: 08-10-2021 Encounter for general [...] 08-20-2024 Hemoglobin glycosyla anne a1c Ameena Vera 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: Start: 07-09-2024 ALL BASIC METABOLIC PANEL Ameena Vera 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: Start: 05-28-2024 Plain radiography of pelvis Start: 05-28-2024 X-ray of right knee, four views Start: 05-21-2024 Radiologic examinati on knee 3 views Ameena Vera 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: Start: 05-21-2024 ALL CBC WITH AUTO DIFF Ameena Vera 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: Start: 05-19-2024 Hemoglobin glycosyla anne a1c Ameena Nettiez 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: Start: 03-30-2024 Hemoglobin glycosyla anne a1c Sonam Vidal 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: Start: 03-18-2024 MM TOMOSYNTHESIS SCR EENING BI Generic External Data Provider Start: 03-18-2024 Mammography Generic Pr ovider Start: 12-31-2023 ALL CBC WITH AUTO DIFF Sonam Drake 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: Start: 03-20-2023 Mammography Shaikh Marie calero MD Work Phone: Start: 08-30-2021 Microscopic observat ion [Identifier] in Cervix by Cyto stain Sr House DO Work Phone: Plan of Treatment Date Care Activity Detail Author Start: 03-28-2026 Screening for malignant neoplasm of colon [facility] Start: 03-08-2026 Screening for malignant neoplasm of colon [facility] Start: 05-21-2025 Urine screening for protein Diabetes: Urine Protein Screening [facility] Start: 03-30-2025 End: 03-30-2025 Patient encounter procedure 03/30/2025 11:15 AM EST Office Visit [facility] [address] [place] [address] Alicia Monroy MD [address] [place] [address] [facility] Start: 03-18-2025 Screening for malignant neoplasm of breast Mammogram [facility] Start: 02-20-2025 Hemoglobin A1c measurement Diabetes: Hemoglobin A1C [facility] Start: 12-30-2024 Urine screening for protein Diabetes: Urine Protein Screening [facility] Start: 11-23-2024 End: 11-23-2024 Patient encounter procedure 11/23/2024 1:00 PM EDT Office [address] [facility] [address] [place] [phone] Ameena Vera NP [address] [place] [phone] [facility] Start: 11-18-2024 Hemoglobin A1c measurement Diabetes: Hemoglobin A1C [facility] Start: 10-26-2024 End: 10-26-2024 Patient encounter procedure 10/26/2024 1:20 PM EDT Office Visit [facility] [address] [facility] [place] [address] Za Wilkerson NP [address] [facility] [address] [place] [facility] Start: 10-12-2024 Influenza vaccination [facility] Start: 09-30-2024 End: 09-30-2024 Patient encounter procedure 09/30/2024 2:40 PM EDT Office Visit [facility] [address] [place] [phone] Kasi Bennett MD [address] [place] [address] [facility] Start: 09-27-2024 Hemoglobin A1c measurement Diabetes: Hemoglobin A1C [facility] Start: 08-30-2024 Screening for malignant neoplasm of cervix [facility] Start: 08-20-2024 End: 08-20-2024 Patient encounter procedure 08/20/2024 10:30 AM EDT Office Visit [facility] [address] [place] [address] Ameena Vera NP [address] [place] [address] [facility] Start: 07-29-2024 End: 07-29-2025 25-hydroxyvitamin D3 [Mass/volume] in Serum or Plasma Vitamin D 25 hydroxy Total Lab Routine Low serum parathyroid hormone (PTH) Hypercalcemia Vitamin D deficiency Expected: 07/29/2024 (Approximate), Expires: 07/29/2025 [facility] Comment on above: Expected: 07/29/2024 (Approximate), Expi res: 07/29/2025 Start: 07-29-2024 End: 07-29-2025 Magnesium [Mass/volume] in Serum or Plasma Magnesium Lab Routine Low serum parathyroid hormone (PTH) Hypercalcemia Expected: 07/29/2024 (Approximate), Expires: 07/29/2025 [facility] Work Phone: Comment on above: Expected: 07/29/2024 (Approximate), Expi res: 07/29/2025 Start: 07-29-2024 End: 07-29-2025 Parathyrin.intact and Calcium panel - Serum or Plasma PTH, intact and calcium Lab Routine Low serum parathyroid hormone (PTH) Hypercalcemia Expected: 07/29/2024 (Approximate), Expires: 07/29/2025 [facility] Comment on above: Expected: 07/29/2024 (Approximate), Expi res: 07/29/2025 Start: 07-29-2024 End: 07-29-2024 Patient encounter procedure [facility] Comment on above: Low serum parathyroid hormone (PTH) Start: 07-29-2024 End: 07-29-2025 Renal function panel Renal function panel Lab Routine Low serum parathyroid hormone (PTH) Hypercalcemia Expected: 07/29/2024 (Approximate), Expires: 07/29/2025 [facility] Comment on above: Expected: 07/29/2024 (Approximate), Expi res: 07/29/2025 Start: 07-26-2024 Urine screening for protein Diabetes: Urine Protein Screening [facility] Start: 07-03-2024 End: 06-03-2025 25-hydroxyvitamin D3 [Mass/volume] in Serum or Plasma Vitamin D 25 hydroxy Lab Routine Hypercalcemia Expected: 07/03/2024 (Approximate), Expires: 06/03/2025 [facility] Comment on above: Expected: 07/03/2024 (Approximate), Expi res: 06/03/2025 Start: 07-03-2024 End: 06-03-2025 Basic metabolic 1998 panel - Serum or Plasma Basic metabolic panel Lab Routine Hypercalcemia Low serum parathyroid hormone (PTH) Expected: 07/03/2024 (Approximate), Expires: 06/03/2025 [facility] Comment on above: Expected: 07/03/2024 (Approximate), Expi res: 06/03/2025 Start: 07-03-2024 End: 06-03-2025 Parathyrin.intact [Mass/volume] in Serum or Plasma PTH, intact Lab Routine Low serum parathyroid hormone (PTH) Expected: 07/03/2024 (Approximate), Expires: 06/03/2025 [facility] Work Phone: Comment on above: Expected: 07/03/2024 (Approximate), Expi res: 06/03/2025 Start: 06-25-2024 End: 06-25-2024 Patient encounter procedure [facility] Start: 05-22-2024 End: 05-22-2025 Parathyrin.intact [Mass/volume] in Serum or Plasma PTH, intact Lab Routine Hypercalcemia Expected: 05/22/2024 (Approximate), Expires: 05/22/2025 [facility] Work Phone: Comment on above: Expected: 05/22/2024 (Approximate), Expi res: 05/22/2025 Start: 05-19-2024 End: 05-19-2025 25-hydroxyvitamin D3 [Mass/volume] in Serum or Plasma Vitamin D 25 hydroxy Lab Routine Hypercalcemia Expected: 05/19/2024 (Approximate), Expires: 05/19/2025 [facility] Comment on above: Expected: 05/19/2024 (Approximate), Expi res: 05/19/2025 Start: 05-19-2024 End: 05-19-2025 CBC W Auto Differential panel - Blood CBC and differential Lab Routine JANETT (obstructive sleep apnea) Cigarette nicotine dependence without complication Expected: 05/19/2024 (Approximate), Expires: 05/19/2025 [facility] Comment on above: Expected: 05/19/2024 (Approximate), Expi res: 05/19/2025 Start: 05-19-2024 End: 05-19-2025 Comprehensive metabolic 2000 panel - Serum or Plasma Comprehensive metabolic panel Lab Routine Other hyperlipidemia Bilateral lower extremity edema Type 2 diabetes mellitus with diabetic microalbuminuria, without long-term current use of insulin ([facility]) Hypercalcemia Essential hypertension Expected: 05/19/2024 (Approximate), Expires: 05/19/2025 [facility] Comment on above: Expected: 05/19/2024 (Approximate), Expi [...] microalbuminuria, without long-term current use of insulin ([facility]) Essential hypertension Expected: 05/19/2024 (Approximate), Expires: 05/19/2025 [facility] Comment on above: Expected: 05/19/2024 (Approximate), Expi res: 05/19/2025 Start: 05-19-2024 End: 05-19-2025 Parathyrin.intact [Mass/volume] in Serum or Plasma PTH, intact Lab Routine Hypercalcemia Expected: 05/19/2024 (Approximate), Expires: 05/19/2025 [facility] Comment on above: Expected: 05/19/2024 (Approximate), Expi res: 05/19/2025 Start: 05-19-2024 End: 05-19-2025 Urate [Mass/volume] in Serum or Plasma Uric acid Lab Routine Elevated blood uric acid level Expected: 05/19/2024 (Approximate), Expires: 05/19/2025 [facility] Comment on above: Expected: 05/19/2024 (Approximate), Expi res: 05/19/2025 Start: 05-19-2024 End: 05-19-2025 Urinalysis complete panel - Urine Urinalysis with reflex microscopic (clean catch) Lab Routine Type 2 diabetes mellitus with diabetic microalbuminuria, without long-term current use of insulin ([facility]) Cigarette nicotine dependence without complication Essential hypertension Elevated blood uric acid level Expected: 05/19/2024 (Approximate), Expires: 05/19/2025 [facility] Comment on above: Expected: 05/19/2024 (Approximate), Expi res: 05/19/2025 Start: 05-19-2024 End: 05-19-2025 XR Knee - right 3 Views XR knee 3 views right Imaging Routine Acute pain of right knee Expected: 05/19/2024 (Approximate), Expires: 05/19/2025 [facility] Comment on above: Expected: 05/19/2024 (Approximate), Expi res: 05/19/2025 Start: 05-19-2024 End: 05-19-2024 Patient encounter procedure 05/19/2024 11:00 AM EDT Office Visit [facility] [address] [place] [address] Ameena Vera NP [address] [place] [address] [facility] Start: 04-21-2024 End: 04-21-2024 Patient encounter procedure 04/21/2024 1:00 PM EDT Office Visit [facility] [address] [place] [phone] Za Wilkerson NP [address] [place], [place] [facility] Start: 03-30-2024 End: 03-30-2024 Patient encounter procedure 03/30/2024 11:05 AM EST Office Visit [facility] [address] [place] [phone] Alicia Monroy MD [address] [place] [address] [facility] Start: 03-26-2024 End: 03-26-2024 Patient encounter procedure 03/26/2024 2:00 PM EST Office Visit [facility] [address] [place] [phone] Sonam Drake NP [address] [place] [phone] [facility] Start: 03-24-2024 End: 03-24-2024 Patient encounter procedure [facility] [address] Start: 03-20-2024 Screening for malignant neoplasm of breast Mammogram [facility] Start: 02-27-2024 End: 02-27-2024 Patient encounter procedure 02/27/2024 11:35 AM EST Office Visit [facility] [address] [place] [phone] Alicia Monroy MD [address] [place] [address] [facility] Start: 02-25-2024 End: 02-25-2024 Patient encounter procedure 02/25/2024 3:30 PM EST Office Visit [facility] [address] [place] [address] Sonam Drake NP [address] [place] [phone] [facility] Start: 02-21-2024 Medicare Annual Wellness (AWV) Medicare Annual Wellness (AWV) [facility] Start: 02-12-2024 Glaucoma screening Diabetes: Retinopathy Screening [facility] Start: 01-25-2024 Hemoglobin A1c measurement Diabetes: Hemoglobin A1C [facility] Start: 12-31-2023 End: 12-30-2024 Polysomnography Polysomnography Sleep Center Routine JANETT (obstructive sleep apnea) Expected: 12/31/2023 (Approximate), Expires: 12/30/2024 [facility] Work Phone: Comment on above: Expected: 12/31/2023 (Approximate), Expi res: 12/30/2024 Start: 12-31-2023 End: 12-31-2023 Patient encounter procedure 12/31/2023 10:00 AM EST Office Visit [facility] [place] [address] [place] [address] Sivan Banda DO [address] [place] [address] [facility] [place] [address] [facility] Start: 12-30-2023 End: 12-29-2024 CBC W Auto Differential panel - Blood CBC and differential Lab Routine Type 2 diabetes mellitus with diabetic microalbuminuria, without long-term current use of insulin ([facility]) Essential hypertension Expected: 12/30/2023 (Approximate), Expires: 12/29/2024 [facility] Comment on above: Expected: 12/30/2023 (Approximate), Expi res: 12/29/2024 Start: 12-30-2023 End: 12-29-2024 Comprehensive metabolic 2000 panel - Serum or Plasma Comprehensive metabolic panel Lab Routine Type 2 diabetes mellitus with diabetic microalbuminuria, without long-term current use of insulin ([facility]) Essential hypertension Expected: 12/30/2023 (Approximate), Expires: 12/29/2024 [facility] Comment on above: Expected: 12/30/2023 (Approximate), Expi res: 12/29/2024 Start: 12-30-2023 End: 12-29-2024 Hemoglobin A1c/Hemoglobin.total in Blood Hemoglobin A1c Lab Routine Type 2 diabetes mellitus with diabetic microalbuminuria, without long-term current use of insulin ([facility]) Expected: 12/30/2023 (Approximate), Expires: 12/29/2024 [facility] Comment on above: Expected: 12/30/2023 (Approximate), Expi res: 12/29/2024 Start: 12-30-2023 End: 12-30-2023 Patient encounter procedure 12/30/2023 10:30 AM EST Office Visit [facility] [address] [place] [id number] Sonam Drake NP [address] [place] [id number] [facility] Start: 11-04-2023 End: 11-04-2023 Patient encounter procedure 11/04/2023 2:30 PM EDT Office Visit [facility] [place] [address] [place] [address] Sivan Banda, DO [address] [place] [address] [facility] [address] [address] Start: 10-13-2023 Influenza vaccination Influenza Vaccine (#1) [facility] Start: 08-11-2023 Influenza vaccination Influenza Vaccine (#1) [facility] Comment on above: Postponed from 10/12/2022 (Patient Refus ed) Start: 05-02-2023 End: 05-02-2023 Patient encounter procedure 05/02/2023 2:00 PM EDT Office Visit [facility] [address] [place] [address] Shaikh Connelly MD [address] [place] [address] [facility] Start: 02-17-2023 Hemoglobin A1c measurement Diabetes: Hemoglobin A1C [facility] Start: 09-04-2022 End: 09-04-2022 Patient encounter procedure 09/04/2022 Office Visit Obstetrics and Gynecology Radha Barclay, ANGEL - DILAN [address] [facility] [address] [place] [address] [facility] Start: 10-12-2021 Influenza vaccination Flu vaccine (#1) [facility] Start: 10-21-2013 Screening for malignant neoplasm of breast Breast cancer screen [facility] Start: 10-21-2013 Shingles vaccine (1 of 2) Shingles vaccine (1 of 2) [facility] Start: 10-21-2008 Screening for malignant neoplasm of colon [facility] Start: 2003 Lipid panel Lipids [facility] Start: 10-21-1998 Diabetes screen Diabetes screen [facility] Start: 10-21-1993 Screening for malignant neoplasm of cervix [facility] Start: 10-21-1982 DTaP/Tdap/Td vaccine (1 - Tdap) DTaP/Tdap/Td vaccine (1 - Tdap) [facility] Start: 10-21-1982 Urine screening for protein Diabetes: Urine Protein Screening [facility] Start: 10-21-1981 Hepatitis C screening Hepatitis C screen [facility] Start: 10-21-1978 HIV screening HIV screen [facility] Start: 1975 Depression Screen Depression Screen [facility] Start: 04-20-1964 COVID-19 Vaccine (#1) COVID-19 Vaccine (#1) [facility] Start: 1963 Screening for malignant neoplasm of colon [facility] End: 08-30-2021 Cytopathology procedure, preparation of smear, genital source PAP SMEAR Lab Routine Routine cervical smear 1 Occurrences starting 08/30/2021 until 08/30/2021 [facility] Work Phone: Comment on above: 1 Occurrences starting 08/30/2021 until 08/30/2021 Microalbumin/Creatin ine panel in random Urine Microalbumin / creatinine urine ratio Lab Routine Type 2 diabetes mellitus with diabetic microalbuminuria, without long-term current use of insulin ([facility]) Essential hypertension Ordered: 12/30/2023 [facility] Work Phone: Comment on above: Ordered: 12/30/2023 Immunizations Immunization Date Immunization Notes Care Provider Tima garcia 01-14-2017 influenza, injectabl e, quadrivalent, preservative [facility] 01-14-2017 influenza virus vaccine, unspecified formulation Sonam Drake NP Work Phone: [facility] Payers Date Payer Category Payer Self-pay [id number] 2022 Private Health Insurance [id number] 2022 Unknown [id number] [id number] 2022 Unknown 2022 2012 Medicare [id number]. [id number] 1963 Unknown [id number] 2.16.8 40.1.984160.3.579.2.173 1963 Unknown [id number] 2.16.84 0.1.732330.3.579.2.593 1963 Unknown [id number] 2.16.84 0.1.209492.3.579.2.593 1963 Unknown [id number] 2.16.84 0.1.614417.3.579.2.593 1963 Unknown [id number] 2.16.84 0.1.648953.3.579.2.593 1963 Unknown [id number] 2.16.84 0.1.952005.3.579.2.593 1963 Unknown [id number] 2.16.84 0.1.808499.3.579.2.593 1963 Unknown [id number] 2.16.84 0.1.977775.3.579.2.593 1963 Unknown [id number] 2.16.84 0.1.577428.3.579.2.593 1963 Unknown [id number] 2.16.84 0.1.818983.3.579.2.593 1963 Unknown [id number] 2.16.84 0.1.847131.3.579.2.593 1963 Unknown [id number] 2.16.84 0.1.074869.3.579.2.593 1963 Unknown [id number] 2.16.84 0.1.041822.3.579.2.593 1963 Unknown [id number] 2.16.84 0.1.214337.3.579.2.593 1963 Unknown [id number] 2.16.84 0.1.498746.3.579.2.593 1963 Unknown [id number] 2.16.84 0.1.550102.3.579.2.593 1963 Unknown [id number] 2.16.84 0.1.895070.3.579.2.593 1963 Unknown [id number] 2.16. 840.1.795845.3.579.2.196 1963 Unknown [id number] 2.16.8 40.1.414270.3.579.2.9 1963 Unknown [id number] 2.16.8 40.1.380760.3.579.2.1258 1963 Unknown [id number] 2.16.84 0.1.508728.3.579.2.1258 1963 Unknown [id number] 2.16.84 0.1.646117.3.579.2.1258 1963 Unknown [id number] 2.16.84 0.1.715766.3.579.2.9 1963 Unknown [id number] 2.16.84 0.1.433416.3.579.2.1258 1963 Unknown [id number] 2.16.84 0.1.920018.3.579.2.1259 1963 Unknown [id number] 2.16.84 0.1.730687.3.579.2.9 1963 Unknown [id number] 2.16.84 0.1.284118.3.579.2.9 1963 Unknown [id number] 2.16.84 0.1.662381.3.579.2.1259 1959 Medicare [id number] 1.2.840.374096.1.13.239.2.7.3.747052.315 1959 Unknown [id number] 1.2.840.259495.1.13.239.2.7.3.475585.315 1959 Unknown [id number] 2.16.8 40.1.098831.19 Medicare Medicare [id number] Unknown [id number] 2.16.8 40.1.624988.3.579.2.531 Social History Date Type Detail Facility Start: 08-30-2021 End: 04-21-2024 Tobacco smoking status NHIS Smokes tobacco daily [employer] Phone: History of tobacco use Cigarette Smoker B ON [employer] Phone: Start: 08-30-2021 End: 04-21-2024 Tobacco use and exposure Smokeless tobacco non-user [employer] Phone: Start: 08-30-2021 Alcohol intake Current drinke r of alcohol (finding) [employer] Phone: Start: 08-30-2021 History SDOH Alcohol Comment occasional [employer] Phone: Start: 1965 Sex Assigned At Not on file B ON [employer] Phone: Start: 08-20-2021 End: 08-30-2021 Exposure to SARS-CoV-2 (event) Not sure [employer] Start: 02-25-2023 End: 10-02-2023 Sex Assigned At [facility] Start: 01-29-2023 End: 05-20-2024 Tobacco smoking status PAIS Ex-smoker [facility] History of tobacco use Current smoker [facility] Start: 01-29-2023 End: 10-02-2023 Cigarettes smoked current (pack per day) - Reported 0.5 [facility] Start: 02-25-2023 End: 08-20-2024 Alcohol intake Lifetime non-drinker (finding) [facility] Start: 1965 Sex Assigned At Female F [facility] History of tobacco use Passive smoker [...] [facility] Start: 05-29-2024 Sex Female (finding) [facility] Medical Equipment Procedure Code Equipment Code Equipment Origin al Text Equipment Identifier Dates [id number] Start: 06-08-2021 End: 04-21-2024 Clinical Notes 06-20-2021 [...] 6.3%, 94% TIR , 4% high 30 csh404, 6.3%m 93% TIR, and 5% high, 1 [...] MORE THAN 3 TABLETS DAILY Continuous Glucose Rigging Up Man (Dexcom G7 Rigging Up Man) device 1 each, Does not apply, Continuous [...] microalbuminuria, without long-term current use of insulin ([facility]) - Primary Check blood sugars daily, notify [...] of the risks of continued smoking: stroke, FL, all forms of cancer, lung disease, and [...] of the risks of continued smoking: stroke, FL, all forms of cancer, lung disease, and [...] Current meds: none documented in this encounter [facility] 08-20-2024 Telephone encount er Note Please call [facility] in [place] for copy of diabetic eye exam [place] [facility] 08-20-2024 Miscellaneous Notes Formattin g of this note might be different from the original. Please call [facility] in [place] for copy of diabetic eye exam [place] documented in this encounter [facility] 08-20-2024 Instructions Ameena Vera NP - 08/20/2024 10:30 AM EDT Furosemide every other day 1/2 tablet documented in this encounter [facility] 07-29-2024 History of Presen t illness Narrative [...] MORE THAN 3 TABLETS DAILY Continuous Glucose Rigging Up Man (Dexcom G7 Rigging Up Man) device 1 each, Does not apply, Continuous [...] months (around 09/28/2024). documented in this encounter [facility] 05-28-2024 Evaluation note Diagnosis Onset Date Resolution Primary osteoarthritis of right knee acute May 28, 2024 12:55pm [facility] Work Phone: 1(443) 759-682404-11-2025 History of Present illness Narrative* Ameena Vera NP - 05/22/2024 7:25 AM EDT par documented in this encounterSaint [facility] [id number] History of Present illness Narrative* Ameena Vera [...] orthopedic surgeon in the past back in [place] for that knee however she does not [...] orthopedic surgeon in the past back in [place] for that knee however she does not [...] MORE THAN 3 TABLETS DAILY Continuous Glucose Rigging Up Man (Dexcom G7 Rigging Up Man) device 1 each, Does not apply, Continuous [...] microalbuminuria, without long-term current use of insulin ([facility]) Check blood sugars daily, notify if <70 [...] aura and without status migrainosus, not intractable ([facility]) Current meds: maxalt, depakote Other hyperlipidemia On [...] of the risks of continued smoking: stroke, FL, all forms of cancer, lung disease, and [...] of the risks of continued smoking: stroke, FL, all forms of cancer, lung disease, and [...] aura and without status migrainosus, not intractable ([facility]) Current meds: maxalt, depakote * Ameena Vera NP - 05/19/2024 6:51 AM EDTAssociated Problem(s): Type 2 diabetes mellitus with diabetic microalbuminuria, without long-term current use of insulin ([facility]) Check blood sugars daily, notify if <70 [...] that supplies your machine and tubing/filters etc: [facility] Doctor that manages your JANETT: Dr Banda documented in this [facility]04-08-2025 Instructions* Patient Instructions* Ameena Vera NP - 05/19/2024 11:00 AM EDT Fasting labs Get xray knee Referral to Dr Darren Orona documented in this [facility]02-17-2025 Telephone encounter Note* Telephone Encounter - Jolly Castaneda MA - 03/30/2024 11:44 AM EST Pt's sensor fell off, and she needs them refilled please [facility] [id number] Miscellaneous Notes* Telephone Encounter - Jolly Castaneda MA - 03/30/2024 11:44 AM EST Pt's sensor fell off, and she needs them refilled please documented in this [facility]02-17-2025 History of Present illness Narrative* Alicia [...] Examined Right arm Examined Patient wearing nail yoruba, Denies dark streaks under finger nails, Denies [...] year skin check documented in this encounterSaint [facility] Health [id number] History of Present illness Narrative* Sonam Drake NP - 03/30/2024 10:04 AM ESTAssociated Problem(s): JANETT (obstructive sleep apnea) Saw Neurology- was diagnosed with severe JANETT. Has been wearing CPAP religiously. Feels more well rested when wearing. Continue current regimen as directed by neurology. * Sonam Drake NP - 03/30/2024 9:58 AM ESTAssociated Problem(s): Other hyperlipidemia ([facility]) Crestor 20mg Denies myalgias Continue current regimen. * Sonam Drake NP - 03/30/2024 9:58 AM ESTAssociated Problem(s): Essential hypertension BP consistently under goal in office. Not on any medication regimen. Continue to monitor closely. * Sonam Drake NP - 03/30/2024 9:58 AM ESTAssociated Problem(s): Type 2 diabetes mellitus with diabetic microalbuminuria, without long-term current use of insulin ([facility]) Currently taking Metformin Bid and Ozempic 1mg. [...] microalbuminuria, without long-term current use of insulin ([facility]) - Primary Currently taking Metformin Bid and [...] (Hb A1C) docked device (Completed) Other hyperlipidemia ([facility]) Crestor 20mg Denies myalgias Continue current regimen. [...] complication, without long-term current use of insulin ([facility]) documented in this [facility]02-17-2025 Instructions* Patient Instructions* Sonam Drake [...] carbohydrates, and simple sugars. documented in this [facility]01-21-2025 History of Present illness Narrative* [...] microalbuminuria, without long-term current use of insulin ([facility]) Relevant Medications metFORMIN (Glucophage) 500 MG tablet Continuous Glucose Rigging Up Man (Dexcom G7 Rigging Up Man) device Continuous Glucose Sensor (Dexcom G7 Sensor) [...] aura and without status migrainosus, not intractable ([facility]) Relevant Medications divalproex (Depakote) 500 MG EC tablet Other hyperlipidemia ([facility]) Relevant Medications rosuvastatin (Crestor) 20 MG tablet Lumbar back pain Relevant Medications diclofenac (Voltaren) 75 MG EC tablet Other Visit Diagnoses Diabetic polyneuropathy associated with type 2 diabetes mellitus ([facility]) Relevant Medications pregabalin (Lyrica) 75 MG capsule documented in this encounterSaint [facility] & Health [id number] Instructions* Patient Instructions* Sonam Drake NP - [...] 1500 calories per day. documented in this [facility]12-19-2024 Telephone encounter Note* Telephone Encounter - Jolly Castaneda MA - 01/30/2024 10:38 AM EST GIOVANNA:12/30/2023 NOV:03/26/2024 [facility] [id number] Miscellaneous Notes* Telephone Encounter - Jolly Castaneda MA - 01/30/2024 10:38 AM EST GIOVANNA:12/30/2023 NOV:03/26/2024 documented in this [facility]12-03-2024 Telephone encounter Note* Telephone Encounter - Jolly Castaneda MA - 01/14/2024 8:34 AM EST GIOVANNA:12/30/2023 NOV:03/26/2023 [id number] Miscellaneous Notes* Telephone Encounter - Jolly Castaneda MA - 01/14/2024 8:34 AM EST GIOVANNA:12/30/2023 NOV:03/26/2023 documented in this [facility]11-19-2024 History of Present illness Narrative* Sivan Banda DO - 12/31/2023 10:00 AM EST Images from the original note were not included. No chief complaint on file. Subjective SLEEP CONSULT REFERRAL: Snoring, concern for JANETT, needing sleep study - labs @ [facility]; referral received from Sonam Drake CNP. 58 [...] was counseled on the risks of stroke, FL, and sudden with JANETT, along with the [...] clinic: 2 months documented in this encounterSaint Francis [facility] & Health [id number] History of Present illness Narrative* Sonam Drake [...] 12/30/2023 1:18 PM ESTAssociated Problem(s): Other hyperlipidemia ([facility]) Crestor 20mg Denies myalgias Continue current regimen. * Sonam Drake NP - 12/30/2023 1:17 PM ESTAssociated Problem(s): Type 2 diabetes mellitus with diabetic microalbuminuria, without long-term current use of insulin ([facility]) Currently taking Metformin Bid and Ozempic Most [...] ALBUMIN GLOBULIN RATIO 0.8 Resulting Agency H [facility] DMII: Metformin Bid and Ozempic Most recent [...] microalbuminuria, without long-term current use of insulin ([facility]) - Primary Currently taking Metformin Bid and [...] JANETT. First appointment tomorrow. documented in this [facility]11-18-2024 Instructions* Patient Instructions* Sonam Drake NP - 12/30/2023 10:30 AM EST FASTING labs ordered. Nothing to eat or drink for 12 hours prior to blood draw. Water and black coffee ok. Call if you need anything! documented in this [facility]11-05-2024 Telephone encounter Note* Telephone Encounter - Jolly Castaneda MA - 12/17/2023 3:39 PM EST GIOVANNA:10/03/2023 NOV:12/30/2023 [facility] [id number] Miscellaneous Notes* Telephone Encounter - Jolly Castaneda MA - 12/17/2023 3:39 PM EST GIOVANNA:10/03/2023 NOV:12/30/2023 documented in this [facility]08-22-2024 History of Present illness Narrative* [...] R ALBUMIN GLOBULIN RATIO 0.8 Resulting Agency [facility] DMII: Metformin Bid and Ozempic Most recent [...] complication, without long-term current use of insulin ([facility]) Relevant Medications semaglutide (Ozempic, 1 MG/DOSE,) 4 MG/3ML solution pen-injector Diabetic polyneuropathy associated with type 2 diabetes mellitus (CMS/HCC) Relevant Medications pregabalin (Lyrica) 75 MG capsule documented in this encounterSaint Francis [facility] & Health [id number] Instructions* Patient Instructions* Sonam Drake NP - [...] you need anything! documented in this encounterSaint Francis Hospital & Health [id number] Evaluation note* Encounter Date Diagnosis Assessment Notes [...] Left hand pain (ICD- 10 - M79.642) [facility] Other 12-13-2023 Evaluation note* Encounter Date Diagnosis [...] noted. Patient will f/u in 4 weeks. [facility] Other 12-08-2023 Evaluation note* Encounter Date Diagnosis [...] x-ray that was performed at [facility] which revealed degenerative changes in the hand as well as a remote avulsion fracture of the thumb. Patient states her family doctor is treating her for gout in her hand. Jan, History of gout (ICD-10 - Z87.39) Jan, Other Gout material w as printed [facility] Other 08-09-2023 Evaluation note* Encounter Date Diagnosis Assessment Notes Treatment Notes Treatment Clinical Notes Sep, Right wrist pain (ICD-10 - M25.531) [facility] Other 04-27-2023 NoteCONSULTATION CONSULTATION DATE: 06/07/2022 TO: [...] our patients to inform us about any tcwe-hug-rlorgls medications or herbal remedies/nutritional supplements/alternative remedies. 2. [...] with their primary care provider.[id number] Evaluation note * Encounter Date Diagnosis Assessment [...] understanding and is agreeable to treatment plan. [facility] Other 01-26-2023 NoteCONSULTATION PROCEDURE DATE: 03/08/2022 PREOPERATIVE [...] followed up in the clinic.[id number] NotePROCEDURE: XR KNEE LT 4V or > [...] Electronically authenticated by: PATTIE SALTER Date: 2022-02-16 11:29[facility]12-30-2022 NoteCONSULTATION CONSULTATION DATE: 02/09/2022 HISTORY [...] Patient agrees with this plan.[id number] NotePROCEDURE: XR WRIST RT MIN 3 V COMPARISON: None. HISTORY: Injury of right wrist FINDINGS: BONES:No acute fracture or dislocation. Corticated bone fragment identified along the first carpometacarpal joint [degenerative in nature SOFT TISSUES:Moderate diffuse soft tissue swelling EFFUSION:None visible. OTHER: Negative. IMPRESSION: Soft tissue swelling, no acute fracture Electronically authenticated by: RYAN GOLDMAN Date: 2021-11-16 18:59[id number] NoteCONSULTATION CONSULTATION DATE: 11/01/2021 HISTORY OF PRESENT [...] Patient agrees with this plan.[id number] NoteCONSULTATION PROCEDURE DATE: 11/01/2021 PRE AND POSTOPERATIVE [...] followed up in the clinic.[id number] NoteCONSULTATION PROCEDURE DATE: 08/09/2021 PREOPERATIVE DIAGNOSIS: Bilateral [...] and Approved by: CRYS PIERCE . 08/10/2021 13:37:00[facility]06-08-2022 NoteCONSULTATION CONSULTATION DATE: 07/19/2021 HISTORY [...] and Approved by: CRYS PIERCE . 07/20/2021 10:33:00[facility]05-25-2022 NotePROCEDURE: XR FOOT RT MIN [...] Electronically authenticated by: PATTIE SALTER Date: 2021-07-05 11:11[facility]05-10-2022 NoteCONSULTATION CONSULTATION DATE: 06/20/2021 CHIEF [...] Approved by: DR RICARDO HOLM . 06/27/2021 10:40:00[facility]* Diagnosis Routine cervical smear Screening for malignant neoplasm of the cervix documented in this encounter [facility] Work Phone: evaluation note* Diagnosis Diabetic polyneuropathy associated with type 2 diabetes mellitus (CMS/HCC)- Primary documented in this encounter [facility] HealthcareEvaluation noteNo assessment information availableLima City [facility] Work Phone: Evaluation note* Diagnosis Encounter [...] diabetes mellitus (CMS/HCC) documented in this encounter [facility] HealthcareEvaluation note* Diagnosis Encounter for screening [...] chronicity, unspecified site documented in this encounter [facility] Healthcare[facility]* Diagnosis Encounter for screening [...] Tobacco use disorder documented in this encounter [facility] HealthcareEvaluation note* Diagnosis Encounter for screening [...] Essential hypertension Unspecified essential hypertension Other hyperlipidemia (CMS/[facility]) Snoring Other dyspnea and respiratory abnormality Mixed urge and stress incontinence Mixed incontinence urge and stress (male)(female) documented in this encounter [facility] HealthcareEvaluation note* Diagnosis Encounter for screening mammogram for breast cancer- Primary Encounter for screening for malignant neoplasm of colon Type 2 diabetes mellitus without complication, without long-term current use of insulin ([facility]) Upper respiratory tract infection, unspecified type URTI (acute upper respiratory infection) Acute upper respiratory infections of unspecified site Migraine with aura and without status migrainosus, not intractable (CMS/[facility])- Primary Type 2 diabetes mellitus without complication, [...] polyneuropathy associated with type 2 diabetes mellitus ([facility]) Gastroesophageal reflux disease without esophagitis Esophageal reflux Migraine with aura and without status migrainosus, not intractable ([facility]) Hospital discharge follow-up Other follow-up examination Type 2 diabetes mellitus with diabetic microalbuminuria, without long-term current use of insulin ([facility])- Primary Other hyperlipidemia ([facility]) Essential hypertension Unspecified essential hypertension Bilateral lower extremity edema Lumbar back pain- Primary Lumbago Hospital discharge follow-up Other follow-up examination Essential hypertension- Primary Unspecified essential hypertension Type 2 diabetes mellitus with diabetic microalbuminuria, without long-term current use of insulin ([facility]) Morbid (severe) obesity due to excess calories (E66.01) Other hyperlipidemia ([facility]) Lumbar back pain Lumbago Type 2 diabetes mellitus without complication, without long-term current use of insulin ([facility]) Diabetic polyneuropathy associated with type 2 diabetes mellitus ([facility]) Mixed urge and stress incontinence Mixed incontinence urge and stress (male)(female) Snoring Other dyspnea and respiratory abnormality Encounter for long-term (current) use of high-risk medication Encounter for long-term (current) use of other medications Type 2 diabetes mellitus with diabetic microalbuminuria, without long-term current use of insulin ([facility])- Primary Essential hypertension Unspecified essential hypertension Other hyperlipidemia ([facility]) Snoring Other dyspnea and respiratory abnormality Mixed urge and stress incontinence Mixed incontinence urge and stress (male)(female) Lumbar back pain Lumbago documented in this encounter [facility] HealthcareEvaluation [facility]* Diagnosis Essential hypertension- Primary Unspecified essential hypertension Type 2 diabetes mellitus with diabetic microalbuminuria, without long-term current use of insulin ([facility]) Morbid (severe) obesity due to excess calories (E66.01) Other hyperlipidemia ([facility]) Lumbar back pain Lumbago Type 2 diabetes mellitus without complication, without long-term current use of insulin ([facility]) Diabetic polyneuropathy associated with type 2 diabetes mellitus ([facility]) Mixed urge and stress incontinence Mixed incontinence urge and stress (male)(female) Snoring Other dyspnea and respiratory abnormality documented in this encounter [facility]* Diagnosis Gout, unspecified cause, unspecified chronicity, unspecified site documented in this encounter [facility]* Diagnosis Diabetic polyneuropathy associated with type 2 diabetes mellitus (CMS/HCC) documented in this encounter [facility] HealthcareEvaluation note* Diagnosis Encounter for screening [...] of insulin (CMS/HCC) documented in this encounter [facility] HealthcareEvaluation note* Diagnosis Encounter for screening [...] Other hyperlipidemia (CMS/HCC) documented in this encounter [facility] HealthcareEvaluation note* Diagnosis Encounter for screening [...] fracture presence (CMS/HCC) documented in this encounter [facility] HealthcareEvaluation note* Diagnosis Encounter for screening [...] with routine healing, subsequent encounter Other hyperlipidemia ([facility]) Hyperuricemia Other abnormal blood chemistry Osteoporosis, unspecified osteoporosis type, unspecified pathological fracture presence ([facility]) Diabetic polyneuropathy associated with type 2 diabetes [...] esophagitis Esophageal reflux documented in this encounter [facility] HealthcareEvaluation note* Diagnosis Encounter for screening [...] of insulin (CMS/HCC) documented in this encounter [facility] HealthcareEvaluation note* Diagnosis Encounter for screening [...] with routine healing, subsequent encounter Other hyperlipidemia ([facility]) Hyperuricemia Other abnormal blood chemistry Osteoporosis, unspecified osteoporosis type, unspecified pathological fracture presence (CMS/HCC) Diabetic polyneuropathy associated with type 2 diabetes mellitus (CMS/HCC) Gastroesophageal reflux disease without esophagitis Esophageal reflux Migraine with aura and without status migrainosus, not intractable ([facility]) Hospital discharge follow-up Other follow-up examination Type [...] complication, without long-term current use of insulin ([facility]) Diabetic polyneuropathy associated with type 2 diabetes mellitus (CMS/HCC) Mixed urge and stress incontinence Mixed incontinence urge and stress (male)(female) Snoring Other dyspnea and respiratory abnormality Encounter for long-term (current) use of high-risk medication Encounter for long-term (current) use of other medications Type 2 diabetes mellitus with diabetic microalbuminuria, without long-term current use of insulin ([facility])- Primary Essential hypertension Unspecified essential hypertension Other hyperlipidemia (CMS/HCC) Snoring Other dyspnea and respiratory abnormality Mixed urge and stress incontinence Mixed incontinence urge and stress (male)(female) Upper respiratory infection with cough and congestion- Primary Lumbar back pain Lumbago Migraine with aura and without status migrainosus, not intractable ([facility]) Type 2 diabetes mellitus with diabetic microalbuminuria, without long-term current use of insulin ([facility]) Diabetic polyneuropathy associated with type 2 diabetes [...] of insulin (CMS/HCC) documented in this encounter [facility] HealthcareEvaluation note* Diagnosis Encounter for screening [...] of insulin (CMS/HCC) documented in this encounter [facility] HealthcareEvaluation note* Diagnosis Encounter for screening [...] complication, without long-term current use of insulin ([facility]) Back spasm Other symptoms referable to back Closed fracture of proximal end of left fibula with routine healing, unspecified fracture morphology, subsequent encounter Closed nondisplaced fracture of second metatarsal bone of left foot with routine healing, subsequent encounter Other hyperlipidemia ([facility]) Hyperuricemia Other abnormal blood chemistry Osteoporosis, unspecified osteoporosis type, unspecified pathological fracture presence ([facility]) Diabetic polyneuropathy associated with type 2 diabetes mellitus ([facility]) Gastroesophageal reflux disease without esophagitis Esophageal reflux Migraine with aura and without status migrainosus, not intractable ([facility]) Hospital discharge follow-up Other follow-up examination Type 2 diabetes mellitus with diabetic microalbuminuria, without long-term current use of insulin ([facility])- Primary Other hyperlipidemia (CMS/HCC) Essential hypertension Unspecified essential hypertension Bilateral lower extremity edema Lumbar back pain- Primary Lumbago Hospital discharge follow-up Other follow-up examination Essential hypertension- Primary Unspecified essential hypertension Type 2 diabetes mellitus with diabetic microalbuminuria, without long-term current use of insulin ([facility]) Morbid (severe) obesity due to excess calories (E66.01) Other hyperlipidemia (CMS/HCC) Lumbar back pain Lumbago Type 2 diabetes mellitus without complication, without long-term current use of insulin ([facility]) Diabetic polyneuropathy associated with type 2 diabetes mellitus ([facility]) Mixed urge and stress incontinence Mixed incontinence urge and stress (male)(female) Snoring Other dyspnea and respiratory abnormality Encounter for long-term (current) use of high-risk medication Encounter for long-term (current) use of other medications Type 2 diabetes mellitus with diabetic microalbuminuria, without long-term current use of insulin ([facility])- Primary Essential hypertension Unspecified essential hypertension Other hyperlipidemia (CMS/HCC) Snoring Other dyspnea and respiratory abnormality Mixed urge and stress incontinence Mixed incontinence urge and stress (male)(female) Upper respiratory infection with cough and congestion- Primary Lumbar back pain Lumbago Migraine with aura and without status migrainosus, not intractable ([facility]) Type 2 diabetes mellitus with diabetic microalbuminuria, [...] complication, without long-term current use of insulin ([facility]) Bilateral lower extremity edema- Primary documented in this encounter [facility] HealthcareEvaluation note* Diagnosis Encounter for screening [...] microalbuminuria, without long-term current use of insulin ([facility]/HCC)- Primary Other hyperlipidemia Essential hypertension Unspecified essential [...] diabetes mellitus (CMS/HCC) documented in this encounter [facility] HealthcareEvaluation note* Diagnosis Encounter for screening [...] unspecified osteoporosis type, unspecified pathological fracture presence ([facility]) Diabetic polyneuropathy associated with type 2 diabetes mellitus ([facility]) Gastroesophageal reflux disease without esophagitis Esophageal reflux Migraine with aura and without status migrainosus, not intractable ([facility]) Hospital discharge follow-up Other follow-up examination Type 2 diabetes mellitus with diabetic microalbuminuria, without long-term current use of insulin ([facility])- Primary Other hyperlipidemia Essential hypertension Unspecified essential hypertension Bilateral lower extremity edema Lumbar back pain- Primary Lumbago Hospital discharge follow-up Other follow-up examination Essential hypertension- Primary Unspecified essential hypertension Type 2 diabetes mellitus with diabetic microalbuminuria, without long-term current use of insulin ([facility]) Morbid (severe) obesity due to excess calories (E66.01) Other hyperlipidemia Lumbar back pain Lumbago Type 2 diabetes mellitus without complication, without long-term current use of insulin Diabetic polyneuropathy associated with type 2 diabetes mellitus ([facility]) Mixed urge and stress incontinence Mixed incontinence urge and stress (male)(female) Snoring Other dyspnea and respiratory abnormality Encounter for long-term (current) use of high-risk medication Encounter for long-term (current) use of other medications Type 2 diabetes mellitus with diabetic microalbuminuria, without long-term current use of insulin ([facility])- Primary Essential hypertension Unspecified essential hypertension Other hyperlipidemia Snoring Other dyspnea and respiratory abnormality Mixed urge and stress incontinence Mixed incontinence urge and stress (male)(female) Type 2 diabetes mellitus with diabetic microalbuminuria, without long-term current use of insulin ([facility])- Primary Essential hypertension Unspecified essential hypertension Other hyperlipidemia JANETT (obstructive sleep apnea) Obstructive sleep apnea (adult) (pediatric) Type 2 diabetes mellitus without complication, without long-term current use of insulin Type 2 diabetes mellitus with diabetic microalbuminuria, without long-term current use of insulin ([facility])- Primary Morbid (severe) obesity due to excess [...] (CMS/HCC) Hypercalcemia- Primary documented in this encounter [facility] HealthcareEvaluation note* Diagnosis Encounter for screening [...] microalbuminuria, without long-term current use of insulin ([facility])- Primary Essential hypertension Unspecified essential hypertension Other hyperlipidemia Snoring Other dyspnea and respiratory abnormality Mixed urge and stress incontinence Mixed incontinence urge and stress (male)(female) Type 2 diabetes mellitus with diabetic microalbuminuria, without long-term current use of insulin ([facility])- Primary Essential hypertension Unspecified essential hypertension Other [...] microalbuminuria, without long-term current use of insulin ([facility])- Primary Morbid (severe) obesity due to excess calories (CMS/HCC) Other hyperlipidemia Body mass index (BMI) 39.0-39.9, adult JANETT (obstructive sleep apnea) Obstructive sleep apnea (adult) (pediatric) Bilateral lower extremity edema Migraine with aura and without status migrainosus, not intractable ([facility]) Cigarette nicotine dependence without complication Hypercalcemia Essential hypertension Unspecified essential hypertension Elevated blood uric acid level Lumbar back pain Lumbago Gastroesophageal reflux disease without esophagitis Esophageal reflux Chronic gout of multiple sites, unspecified cause Acute pain of right knee Diabetic polyneuropathy associated with type 2 diabetes mellitus (CMS/HCC) documented in this encounter [facility] HealthcareEvaluation note* Diagnosis Encounter for screening [...] unspecified osteoporosis type, unspecified pathological fracture presence ([facility]) Diabetic polyneuropathy associated with type 2 diabetes mellitus (CMS/HCC) Gastroesophageal reflux disease without esophagitis Esophageal reflux Migraine with aura and without status migrainosus, not intractable (CMS/HCC) Hospital discharge follow-up Other follow-up examination Type 2 diabetes mellitus with diabetic microalbuminuria, without long-term current use of insulin ([facility])- Primary Other hyperlipidemia Essential hypertension Unspecified essential hypertension Bilateral lower extremity edema Lumbar back pain- Primary Lumbago Hospital discharge follow-up Other follow-up examination Essential hypertension- Primary Unspecified essential hypertension Type 2 diabetes mellitus with diabetic microalbuminuria, without long-term current use of insulin ([facility]) Morbid (severe) obesity due to excess calories (E66.01) Other hyperlipidemia Lumbar back pain Lumbago Type 2 diabetes mellitus without complication, without long-term current use of insulin Diabetic polyneuropathy associated with type 2 diabetes mellitus ([facility]) Mixed urge and stress incontinence Mixed incontinence urge and stress (male)(female) Snoring Other dyspnea and respiratory abnormality Encounter for long-term (current) use of high-risk medication Encounter for long-term (current) use of other medications Type 2 diabetes mellitus with diabetic microalbuminuria, without long-term current use of insulin ([facility])- Primary Essential hypertension Unspecified essential hypertension Other hyperlipidemia Snoring Other dyspnea and respiratory abnormality Mixed urge and stress incontinence Mixed incontinence urge and stress (male)(female) Type 2 diabetes mellitus with diabetic microalbuminuria, without long-term current use of insulin ([facility])- Primary Essential hypertension Unspecified essential hypertension Other [...] parathyroid hormone (PTH) documented in this encounter [facility] HealthcareEvaluation note* Diagnosis Encounter for screening [...] other sinus- Primary documented in this encounter [facility] HealthcareEvaluation note* Diagnosis Encounter for screening [...] microalbuminuria, without long-term current use of insulin ([facility]/HCC)- Primary Essential hypertension Unspecified essential hypertension Other [...] diabetes mellitus (CMS/HCC) documented in this encounter [facility] HealthcareEvaluation note* Diagnosis Encounter for screening [...] aura and without status migrainosus, not intractable ([facility]) Hospital discharge follow-up Other follow-up examination Type 2 diabetes mellitus with diabetic microalbuminuria, without long-term current use of insulin ([facility])- Primary Other hyperlipidemia Essential hypertension Unspecified essential hypertension Bilateral lower extremity edema Lumbar back pain- Primary Lumbago Hospital discharge follow-up Other follow-up examination Essential hypertension- Primary Unspecified essential hypertension Type 2 diabetes mellitus with diabetic microalbuminuria, without long-term current use of insulin ([facility]) Morbid (severe) obesity due to excess calories (E66.01) Other hyperlipidemia Lumbar back pain Lumbago Type 2 diabetes mellitus without complication, without long-term current use of insulin Diabetic polyneuropathy associated with type 2 diabetes mellitus ([facility]) Mixed urge and stress incontinence Mixed incontinence urge and stress (male)(female) Snoring Other dyspnea and respiratory abnormality Encounter for long-term (current) use of high-risk medication Encounter for long-term (current) use of other medications Type 2 diabetes mellitus with diabetic microalbuminuria, without long-term current use of insulin ([facility])- Primary Essential hypertension Unspecified essential hypertension Other hyperlipidemia Snoring Other dyspnea and respiratory abnormality Mixed urge and stress incontinence Mixed incontinence urge and stress (male)(female) Type 2 diabetes mellitus with diabetic microalbuminuria, without long-term current use of insulin ([facility])- Primary Essential hypertension Unspecified essential hypertension Other hyperlipidemia JANETT (obstructive sleep apnea) Obstructive sleep apnea (adult) (pediatric) Type 2 diabetes mellitus without complication, without long-term current use of insulin Type 2 diabetes mellitus with diabetic microalbuminuria, without long-term current use of insulin ([facility])- Primary Morbid (severe) obesity due to excess calories ([facility]) Other hyperlipidemia Body mass index (BMI) 39.0-39.9, adult JNAETT (obstructive sleep apnea) Obstructive sleep apnea (adult) (pediatric) Bilateral lower extremity edema Migraine with aura and without status migrainosus, not intractable ([facility]) Cigarette nicotine dependence without complication Hypercalcemia Essential hypertension Unspecified essential hypertension Elevated blood uric acid level Lumbar back pain Lumbago Gastroesophageal reflux disease without esophagitis Esophageal reflux Chronic gout of multiple sites, unspecified cause Acute pain of right knee Diabetic polyneuropathy associated with type 2 diabetes mellitus ([facility]) Type 2 diabetes mellitus with diabetic microalbuminuria, without long-term current use of insulin ([facility]) documented in this encounter [facility] HealthcareEvaluation note* Diagnosis Encounter for screening [...] hormone (PTH)- Primary documented in this encounter [facility] HealthcareEvaluation note* Diagnosis Encounter for screening [...] microalbuminuria, without long-term current use of insulin ([facility])- Primary Other hyperlipidemia Essential hypertension Unspecified essential hypertension Bilateral lower extremity edema Lumbar back pain- Primary Lumbago Hospital discharge follow-up Other follow-up examination Essential hypertension- Primary Unspecified essential hypertension Type 2 diabetes mellitus with diabetic microalbuminuria, without long-term current use of insulin ([facility]) Morbid (severe) obesity due to excess calories (E66.01) Other hyperlipidemia Lumbar back pain Lumbago Type 2 diabetes mellitus without complication, without long-term current use of insulin ([facility]) Diabetic polyneuropathy associated with type 2 diabetes mellitus ([facility]) Mixed urge and stress incontinence Mixed incontinence urge and stress (male)(female) Snoring Other dyspnea and respiratory abnormality Encounter for long-term (current) use of high-risk medication Encounter for long-term (current) use of other medications Type 2 diabetes mellitus with diabetic microalbuminuria, without long-term current use of insulin ([facility])- Primary Essential hypertension Unspecified essential hypertension Other hyperlipidemia Snoring Other dyspnea and respiratory abnormality Mixed urge and stress incontinence Mixed incontinence urge and stress (male)(female) Type 2 diabetes mellitus with diabetic microalbuminuria, without long-term current use of insulin ([facility])- Primary Essential hypertension Unspecified essential hypertension Other hyperlipidemia JANETT (obstructive sleep apnea) Obstructive sleep apnea (adult) (pediatric) Type 2 diabetes mellitus without complication, without long-term current use of insulin ([facility]) Type 2 diabetes mellitus with diabetic microalbuminuria, without long-term current use of insulin ([facility])- Primary Morbid (severe) obesity due to excess calories ([facility]) Other hyperlipidemia Body mass index (BMI) 39.0-39.9, [...] polyneuropathy associated with type 2 diabetes mellitus ([facility]) Lumbar back pain Lumbago documented in this encounter [facility] HealthcareEvaluation note* Diagnosis Encounter for screening [...] Morbid (severe) obesity due to excess calories ([facility]) Other hyperlipidemia Body mass index (BMI) 39.0-39.9, [...] Vitamin D deficiency documented in this encounter [facility] HealthcareEvaluation note* Diagnosis Encounter for screening [...] microalbuminuria, without long-term current use of insulin ([facility])- Primary Other hyperlipidemia Essential hypertension Unspecified essential hypertension Bilateral lower extremity edema Lumbar back pain- Primary Lumbago Hospital discharge follow-up Other follow-up examination Essential hypertension- Primary Unspecified essential hypertension Type 2 diabetes mellitus with diabetic microalbuminuria, without long-term current use of insulin ([facility]) Morbid (severe) obesity due to excess calories (E66.01) Other hyperlipidemia Lumbar back pain Lumbago Type 2 diabetes mellitus without complication, without long-term current use of insulin ([facility]) Diabetic polyneuropathy associated with type 2 diabetes mellitus ([facility]) Mixed urge and stress incontinence Mixed incontinence urge and stress (male)(female) Snoring Other dyspnea and respiratory abnormality Encounter for long-term (current) use of high-risk medication Encounter for long-term (current) use of other medications Type 2 diabetes mellitus with diabetic microalbuminuria, without long-term current use of insulin ([facility])- Primary Essential hypertension Unspecified essential hypertension Other hyperlipidemia Snoring Other dyspnea and respiratory abnormality Mixed urge and stress incontinence Mixed incontinence urge and stress (male)(female) Type 2 diabetes mellitus with diabetic microalbuminuria, without long-term current use of insulin ([facility])- Primary Essential hypertension Unspecified essential hypertension Other hyperlipidemia JANETT (obstructive sleep apnea) Obstructive sleep apnea (adult) (pediatric) Type 2 diabetes mellitus without complication, without long-term current use of insulin ([facility]) Type 2 diabetes mellitus with diabetic microalbuminuria, without long-term current use of insulin ([facility])- Primary Morbid (severe) obesity due to excess calories ([facility]) Other hyperlipidemia Body mass index (BMI) 39.0-39.9, [...] polyneuropathy associated with type 2 diabetes mellitus ([facility]) Lumbar back pain Lumbago documented in this [...] Morbid (severe) obesity due to excess calories ([facility]) Other hyperlipidemia Body mass index (BMI) 39.0-39.9, [...] unspecified cause- Primary documented in this encounter [facility] HealthcareEvaluation note* Diagnosis Encounter for screening [...] microalbuminuria, without long-term current use of insulin ([facility]) Morbid (severe) obesity due to excess calories (E66.01) Other hyperlipidemia Lumbar back pain Lumbago Type 2 diabetes mellitus without complication, without long-term current use of insulin ([facility]) Diabetic polyneuropathy associated with type 2 diabetes mellitus (HCC) Mixed urge and stress incontinence Mixed incontinence urge and stress (male)(female) Snoring Other dyspnea and respiratory abnormality Encounter for long-term (current) use of high-risk medication Encounter for long-term (current) use of other medications Type 2 diabetes mellitus with diabetic microalbuminuria, without long-term current use of insulin ([facility])- Primary Essential hypertension Unspecified essential hypertension Other hyperlipidemia Snoring Other dyspnea and respiratory abnormality Mixed urge and stress incontinence Mixed incontinence urge and stress (male)(female) Type 2 diabetes mellitus with diabetic microalbuminuria, without long-term current use of insulin ([facility])- Primary Essential hypertension Unspecified essential hypertension Other hyperlipidemia JANETT (obstructive sleep apnea) Obstructive sleep apnea (adult) (pediatric) Type 2 diabetes mellitus without complication, without long-term current use of insulin ([facility]) Type 2 diabetes mellitus with diabetic microalbuminuria, without long-term current use of insulin ([facility])- Primary Morbid (severe) obesity due to excess calories ([facility]) Other hyperlipidemia Body mass index (BMI) 39.0-39.9, [...] microalbuminuria, without long-term current use of insulin ([facility])- Primary Essential hypertension Unspecified essential hypertension Other hyperlipidemia JANETT (obstructive sleep apnea) Obstructive sleep apnea (adult) (pediatric) Type 2 diabetes mellitus without complication, without long-term current use of insulin (HCC) Type 2 diabetes mellitus with diabetic microalbuminuria, without long-term current use of insulin ([facility])- Primary Morbid (severe) obesity due to excess calories ([facility]) Other hyperlipidemia Body mass index (BMI) 39.0-39.9, [...] microalbuminuria, without long-term current use of insulin ([facility])- Primary Essential hypertension Unspecified essential hypertension Morbid (severe) obesity due to excess calories (E66.01) Cigarette nicotine dependence without complication Chronic gout of multiple sites, unspecified cause Gastroesophageal reflux disease without esophagitis Esophageal reflux Bilateral lower extremity edema documented in this encounter [facility] HealthcareEvaluation note* Diagnosis Encounter for screening mammogram for breast cancer- Primary Encounter for screening for malignant neoplasm of colon Type 2 diabetes mellitus without complication, without long-term current use of insulin ([facility]) Upper respiratory tract infection, unspecified type URTI (acute upper respiratory infection) Acute upper respiratory infections of unspecified site Migraine with aura and without status migrainosus, not intractable- Primary Type 2 diabetes mellitus without complication, without long-term current use of insulin ([facility]) Morbid (severe) obesity due to excess calories (E66.01) Body mass index [BMI] 40.0-44.9, adult (Z68.41) Essential hypertension Unspecified essential hypertension Essential hypertension- Primary Unspecified essential hypertension Type 2 diabetes mellitus without complication, without long-term current use of insulin ([facility]) Back spasm Other symptoms referable to back Closed fracture of proximal end of left fibula with routine healing, unspecified fracture morphology, subsequent encounter Closed nondisplaced fracture of second metatarsal bone of left foot with routine healing, subsequent encounter Other hyperlipidemia Hyperuricemia Other abnormal blood chemistry Osteoporosis, unspecified osteoporosis type, unspecified pathological fracture presence Diabetic polyneuropathy associated with type 2 diabetes mellitus ([facility]) Gastroesophageal reflux disease without esophagitis Esophageal reflux Migraine with aura and without status migrainosus, not intractable Hospital discharge follow-up Other follow-up examination Type 2 diabetes mellitus with diabetic microalbuminuria, without long-term current use of insulin ([facility])- Primary Other hyperlipidemia Essential hypertension Unspecified essential hypertension Bilateral lower extremity edema Lumbar back pain- Primary Lumbago Hospital discharge follow-up Other follow-up examination Essential hypertension- Primary Unspecified essential hypertension Type 2 diabetes mellitus with diabetic microalbuminuria, without long-term current use of insulin ([facility]) Morbid (severe) obesity due to excess calories (E66.01) Other hyperlipidemia Lumbar back pain Lumbago Type 2 diabetes mellitus without complication, without long-term current use of insulin ([facility]) Diabetic polyneuropathy associated with type 2 diabetes mellitus ([facility]) Mixed urge and stress incontinence Mixed incontinence urge and stress (male)(female) Snoring Other dyspnea and respiratory abnormality Encounter for long-term (current) use of high-risk medication Encounter for long-term (current) use of other medications Type 2 diabetes mellitus with diabetic microalbuminuria, without long-term current use of insulin ([facility])- Primary Essential hypertension Unspecified essential hypertension Other hyperlipidemia Snoring Other dyspnea and respiratory abnormality Mixed urge and stress incontinence Mixed incontinence urge and stress (male)(female) Type 2 diabetes mellitus with diabetic microalbuminuria, without long-term current use of insulin ([facility])- Primary Essential hypertension Unspecified essential hypertension Other hyperlipidemia JANETT (obstructive sleep apnea) Obstructive sleep apnea (adult) (pediatric) Type 2 diabetes mellitus without complication, without long-term current use of insulin ([facility]) Type 2 diabetes mellitus with diabetic microalbuminuria, without long-term current use of insulin ([facility])- Primary Morbid (severe) obesity due to excess calories ([facility]) Other hyperlipidemia Body mass index (BMI) 39.0-39.9, [...] History tubal ligation Hospitalization History see above [employer] Other Reason for referral (narrative)* Consultation (Routine) - Pending Review Specialty Diagnoses / Procedures Referred By Darren acharya Referred To Contact Neurology Diagnoses Snoring Procedures [place] OFFICE/OUTPATIENT NEW HIGH MDM 60 MINUTES Sonam Drake NP [address] [place] [address] Sivan Banda DO [address] [place] [address] Referral ID Status Reason Start Date Expiration Date Visits Requested Visits Authorized [id number] Pending Review Specialty Services Required 10/03/2023 03/31/2024 1 1 Scheduling Instructions Please include OV note from today * Consultation (Routine) - Pending Review Specialty Diagnoses / Procedures Referred By Darren acharya Referred To Contact Urology Diagnoses Mixed urge and stress incontinence Procedures [place] OFFICE/OUTPATIENT NEW HIGH MDM 60 MINUTES Sonam Drake NP [address] [place] [address] Skinny Villafuerte MD [address] [place] [address] Referral ID Status Reason Start Date Expiration Date Visits Requested Visits Authorized [id number] Pending Review Specialty Services Required 10/03/2023 03/31/2024 [...] Care Teams (unrecognized sec tion and content) Social Work Supervisor Relationship Specialty Start Date End Date Sr Jonathan Edwards DO [address] [facility] [place] [address] PCP - General Family Medicine 08/30/21 Social Work Supervisor Relationship Specialty Start Date End Date [...] April 30, 2023 End: April 30, 2023 Social Work Supervisor Relationship Specialty Start Date End Date Jose Chandler MD [address] [place] [address] PCP - General Family Medicine 12/12/23 Sonam Drake NP [address] [place] [address] Nurse Practitioner Family Medicine 09/24/23 Social Work Supervisor Relationship Specialty Start Date End Date Jose Chandler MD [address] [place] [address] PCP - General Family Medicine 12/12/23 Sonam Drake NP [address] [place] [address] Nurse Practitioner Family Medicine 09/24/23 Social Work Supervisor Relationship Specialty Start Date End Date Jose Chandler MD [address] [place] [address] PCP - General Family Medicine 12/12/23 Sonam Drake NP [address] [place] [address] Nurse Practitioner Family Medicine 09/24/23 Social Work Supervisor Relationship Specialty Start Date End Date Jose Chandler MD [address] [place] [address] PCP - General Family Medicine 12/12/23 Sonam Drake NP [address] [place] [address] Nurse Practitioner Family Medicine 09/24/23 Social Work Supervisor Relationship Specialty Start Date End Date Jose Chandler MD [address] [place] [address] PCP - General Family Medicine 12/12/23 Sonam Drake NP [address] [place] [address] Nurse Practitioner Family Medicine 09/24/23 Social Work Supervisor Relationship Specialty Start Date End Date Jose Chandler MD [address] [place] [address] PCP - General Family Medicine 12/12/23 Sonam Drake NP [address] [place] [address] Nurse Practitioner Family Medicine 09/24/23 Social Work Supervisor Relationship Specialty Start Date End Date Jose Chandler MD [address] [place] [address] PCP - General Family Medicine 09/24/23 Sonam Drake NP [address] [place] [address] Nurse Practitioner Family Medicine 09/24/23 Social Work Supervisor Relationship Specialty Start Date End Date Jose Cahndler MD [address] [place] [address] PCP - General Family Medicine 09/24/23 Sonam Drake NP [address] [place] [address] Nurse Practitioner Family Medicine 09/24/23 Social Work Supervisor Relationship Specialty Start Date End Date Jose Chandler MD [address] [place] [address] PCP - General Family Medicine 09/24/23 Sonam Drake NP [address] [place] [address] Nurse Practitioner Family Medicine 09/24/23 Social Work Supervisor Relationship Specialty Start Date End Date Jose Chandler MD [address] [place] [address] PCP - General Family Medicine 09/24/23 Sonam Drake NP [address] [place] [address] Nurse Practitioner Family Medicine 09/24/23 Social Work Supervisor Relationship Specialty Start Date End Date Jose Chandler MD [address] [place] [address] PCP - General Family Medicine 12/12/23 Sonam Drake NP [address] [place] [address] Nurse Practitioner Family Medicine 09/24/23 Social Work Supervisor Relationship Specialty Start Date End Date Jose Chandler MD [address] [place] [address] PCP - General Family Medicine 12/12/23 Sonam Drake NP [address] [place] [address] Nurse Practitioner Family Medicine 09/24/23 Social Work Supervisor Relationship Specialty Start Date End Date Jose Chandler MD [address] [place] [address] PCP - General Family Medicine 12/12/23 Sonam Drake NP [address] [place] [address] Nurse Practitioner Family Medicine 09/24/23 Social Work Supervisor Relationship Specialty Start Date End Date Jose Chandler MD [address] [place] [address] PCP - General Family Medicine 12/12/23 Sonam Drake NP [address] [place] [address] Nurse Practitioner Family Medicine 09/24/23 Social Work Supervisor Relationship Specialty Start Date End Date Jose Chandler MD [address] [place] [address] PCP - General Family Medicine 12/12/23 Sonam Drake NP [address] [place] [address] Nurse Practitioner Family Medicine 09/24/23 Social Work Supervisor Relationship Specialty Start Date End Date oJse Chandler MD [address] [place] [address] PCP - General Family Medicine 12/12/23 Sonam Drake NP [address] [place] [address] Nurse Practitioner Family Medicine 09/24/23 Social Work Supervisor Relationship Specialty Start Date End Date Jose Chandler MD [address] [place] [address] PCP - General Family Medicine 12/12/23 Sonam Drake NP [address] [place] [address] Nurse Practitioner Family Medicine 09/24/23 Social Work Supervisor Relationship Specialty Start Date End Date Jose Chandler MD [address] [place] [address] PCP - General Family Medicine 12/12/23 Sonam Drake NP [address] [place] [address] Nurse Practitioner Family Medicine 09/24/23 Social Work Supervisor Relationship Specialty Start Date End Date Jose Chandler MD [address] [place] [address] PCP - General Family Medicine 12/12/23 Sonam Drake NP [address] [place] [address] Nurse Practitioner Family Medicine 09/24/23 Social Work Supervisor Relationship Specialty Start Date End Date Jose Chandler MD [address] [place] [address] PCP - General Family Medicine 12/12/23 Sonam Drake NP [address] [place] [address] Nurse Practitioner Family Medicine 09/24/23 Social Work Supervisor Relationship Specialty Start Date End Date Jose Chandler MD [address] [place] [address] PCP - General Family Medicine 12/12/23 Sonam Drake NP Nurse Practitioner Family Medicine 09/24/23 Za Wilkerson NP [address] [place], [place] Nurse Practitioner Neurology 04/21/24 Sivan Banda DO [address] [place], [place] [phone] Referring Physician Neurology 04/21/24 Social Work Supervisor Relationship Specialty Start Date End Date Jose Chandler MD [address] [place] [address] PCP - General Family Medicine 12/12/23 Sonam Drake NP Nurse Practitioner Family Medicine 09/24/23 Za Wilkerson NP [address] [place], [place] Nurse Practitioner Neurology 04/21/24 Sivan Banda DO [address] [place] [address] Referring Physician Neurology 04/21/24 Social Work Supervisor Relationship Specialty Start Date End Date Jose Chandler MD [address] [place] [address] PCP - General Family Medicine 12/12/23 Sonam Drake NP Nurse Practitioner Family Medicine 09/24/23 Za Wilkerson NP [address] [place], [place] Nurse Practitioner Neurology 04/21/24 Sivan Banda DO [address] [place] [address] Referring Physician Neurology 04/21/24 Social Work Supervisor Relationship Specialty Start Date End Date Jose Chandler MD [address] [place] [address] PCP - General Family Medicine 12/12/23 Sonam Drake NP Nurse Practitioner Family Medicine 09/24/23 Za Wilkerson NP [address] [place], [place] Nurse Practitioner Neurology 04/21/24 Sivan Banda DO [address] [place] [address] Referring Physician Neurology 04/21/24 Social Work Supervisor Relationship Specialty Start Date End Date Jose Chandler MD [address] [place] [address] PCP - General Family Medicine 12/12/23 Sonma Drake NP Nurse Practitioner Family Medicine 09/24/23 Za Wilkerson, RONALDO [address] [place], [place] Nurse Practitioner Neurology 04/21/24 Sivan Banda DO [address] [place] [address] Referring Physician Neurology 04/21/24 Social Work Supervisor Relationship Specialty Start Date End Date Jose Chandler MD [address] [place] [address] PCP - General Family Medicine 12/12/23 Sonam Drake NP Nurse Practitioner Family Medicine 09/24/23 Za Wilkerson NP [address] [place], [place] Nurse Practitioner Neurology 04/21/24 Sivan Banda DO [address] [place] [address] Referring Physician Neurology 04/21/24 Social Work Supervisor Relationship Specialty Start Date End Date Jose Chandler MD [address] [place] [address] PCP - General Family Medicine 12/12/23 Sonam Drake NP Nurse Practitioner Family Medicine 09/24/23 Za Wilkerson NP [address] [place] [address] Nurse Practitioner Neurology 04/21/24 Sivan Banda DO [address] [place] [address] Referring Physician Neurology 04/21/24 Team Status: Active [...] 28, 2024 End: May 28, 2024 Ameena Vrea Primary Care Provider Active Sta rt: May 28, 2024 End: May 28, 2024 Social Work Supervisor Relationship Specialty Start Date End Date Jose Chandler MD [facility] [place] [address] PCP - General Family Medicine 12/12/23 Sonam Drake NP Nurse Practitioner Family Medicine 09/24/23 Za Wilkerson, RONALDO [address] [place] [address] Nurse Practitioner Neurology 04/21/24 Sivan Banda DO [address] [place], [place] [address] Referring Physician Neurology 04/21/24 Social Work Supervisor Relationship Specialty Start Date End Date Jose Chandler MD [address] [place] [address] PCP - General Family Medicine 12/12/23 Sonam Drake NP Nurse Practitioner Family Medicine 09/24/23 Za Wilkerson, RONALDO [address] [place], [place] Nurse Practitioner Neurology 04/21/24 Sivan Banda DO [address] [place] [address] Referring Physician Neurology 04/21/24 Social Work Supervisor Relationship Specialty Start Date End Date Jose Chandler MD [address] [place] [address] PCP - General Family Medicine 12/12/23 Sonam Drake NP Nurse Practitioner Family Medicine 09/24/23 Za Wilkerson NP [address] [place] Nurse Practitioner Neurology 04/21/24 Sivan Banda DO [address] [place] [address] Referring Physician Neurology 04/21/24 Social Work Supervisor Relationship Specialty Start Date End Date Jose Chandler MD [address] [place] [address] PCP - General Family Medicine 12/12/23 Sonam Drake NP Nurse Practitioner Family Medicine 09/24/23 Za Wilkerson NP [address] [place] [address] Nurse Practitioner Neurology 04/21/24 Sivan Banda DO [address] [place] [address] Referring Physician Neurology 04/21/24 Social Work Supervisor Relationship Specialty Start Date End Date Jose Chandler MD [address] [place] [address] PCP - General Family Medicine 12/12/23 Sonam Drake NP Nurse Practitioner Family Medicine 09/24/23 Za Wilkerson NP [address] [place] [address] Nurse Practitioner Neurology 04/21/24 Sivan Banda DO [address] [place] [id number] Referring Physician Neurology 04/21/24 Social Work Supervisor Relationship Specialty Start Date End Date Jose Chandler MD [address] [place] [address] PCP - General Family Medicine 12/12/23 Sonam Drake NP Nurse Practitioner Family Medicine 09/24/23 Za Wilkerson NP [address] [place] [address] Nurse Practitioner Neurology 04/21/24 Sivan Banda DO [address] [place] [address] Referring Physician Neurology 04/21/24 Social Work Supervisor Relationship Specialty Start Date End Date Jose Chandler MD [address] [place] [address] PCP - General Family Medicine 12/12/23 Sonam Drake NP Nurse Practitioner Family Medicine 09/24/23 Za Wilkerson NP [address] [place] [address] Nurse Practitioner Neurology 04/21/24 Sivan Banda DO [address] [place] [address] Referring Physician Neurology 04/21/24 Social Work Supervisor Relationship Specialty Start Date End Date Jose Chandler MD [address] [place] [address] PCP - General Family Medicine 12/12/23 Sonam Drake NP Nurse Practitioner Family Medicine 09/24/23 Za Wilkerson NP [address] [place] [address] Nurse Practitioner Neurology 04/21/24 Sivan Banda DO [address] [place] [address] Referring Physician Neurology 04/21/24 Social Work Supervisor Relationship Specialty Start Date End Date Jose Chandler MD [address] [place] [address] PCP - General Family Medicine 12/12/23 Sonam Drake NP Nurse Practitioner Family Medicine 09/24/23 Za Wilkerson NP [address] [place] [address] Nurse Practitioner Neurology 04/21/24 Sivan Banda DO [address] [place] [address] Referring Physician Neurology 04/21/24 Social Work Supervisor Relationship Specialty Start Date End Date Jose Chandler MD [address] [place] [address] PCP - General Family Medicine 12/12/23 Sonam Drake NP Nurse Practitioner Family Medicine 09/24/23 Za Wilkerson NP [address] [place] [address] Nurse Practitioner Neurology 04/21/24 Sivan Banda DO [address] [place] [address] Referring Physician Neurology 04/21/24 Social Work Supervisor Relationship Specialty Start Date End Date Jose Chandler MD [address] [place] [address] PCP - General Family Medicine 12/12/23 Sonam Drake NP Nurse Practitioner Family Medicine 09/24/23 Za Wilkerson, RONALDO [address] [place] [address] Nurse Practitioner Neurology 04/21/24 Sivan Banda DO [address] [place] [address] Referring Physician Neurology 04/21/24 INFORMATION SOURCE (unrecogn ized section and content) DATE CREATED AUTHOR 09/10/2021 [facility] DATE CREATED AUTHOR AUTHOR'S ORGANIZ ATION 06/08/2022 [facility] [place] [facility] DATE CREATED AUTHOR AUTHOR'S ORGANIZ ATION 10/06/2023 [facility] DATE CREATED AUTHOR AUTHOR'S ORGANIZ ATION 06/01/2024 [facility] DATE CREATED AUTHOR AUTHOR'S ORGANIZ ATION 07/15/2024 [facility] DATE CREATED AUTHOR AUTHOR'S ORGANIZ ATION 08/24/2024 [facility] REASON FOR VISIT (unrecogniz ed section [...] Diagnoses Low serum parathyroid hormone (PTH) Procedures [place] OFFICE/OUTPATIENT NEW HIGH MDM 60 MINUTES Ameena Vera NP [address] [place] [address] Phone: tel: fax: Kasi Bennett MD [address] [place] [address] Phone: tel: fax: Referral ID Status Reason Start Date Expiration Date Visits Requested Visits Authorized [id number] Pending Review Specialty Services Required 07/14/2024 01/10/2025 [...] BE BASED ON THE PRIMARY CLINICAL RECORDS. [facility] [employer] provides no warranty or guarantee of the accuracy or completeness of information in this document.
[2024-09-21] MEDS: 0.9 % SODIUM CHLORIDE 1,000 ML 125 ML IV (03:18)
[2024-09-21] MEDS: ENOXAPARIN SODIUM 40 MG/0.4 ML SYRINGE SUBQ ×2 (03:18→09:20)
[2024-09-21 06:34] LABS: Hematocrit 42.9 % (36.0-48.0); Hemoglobin 14.4 g/dL (12.0-16.0); Immature Granulocytes Abs Auto 0.13 10^3/uL (0.00-0.03); Immature Granulocytes Pct Auto 1.2 % (0.0-0.5); Lymphocytes Absolute Auto 3.1 10^3/uL (1.2-3.8); Mean Corpuscular HGB Conc 33.6 g/dL (29.9-35.2); Mean Corpuscular Hemoglobin 33.0 pg (26.7-34.0); Mean Corpuscular Volume 98.2 fL (81.0-99.0); Platelet Count 196 10^3/uL (150-450); Red Blood Count 4.37 10^6/uL (4.20-5.40); White Blood Count 11.0 10^3/uL (4.0-11.0)
[2024-09-21 06:57] LABS: Alanine Aminotransferase 24 U/L (14-59); Albumin Globulin Ratio 0.8; Albumin Level 3.2 g/dL (3.4-5.0); Alkaline Phosphatase 99 U/L (46-116); Anion Gap 12.9; Aspartate Amino Transferase 17 U/L (15-37); Blood Urea Nitrogen 19.0 mg/dL (7.0-18.0); Calcium 9.5 mg/dL (8.5-10.1); Carbon Dioxide 31.0 mmol/L (21.0-32.0); Chloride 106 mmol/L (98-107); Estimated GFR (African America >60 (>=60 mL/min/1.73m^2); Estimated GFR (Non-African Ame >60 (>=60 mL/min/1.73m^2); Globulin 4.0 g/dL; Glucose 103 mg/dL (74-106); Magnesium 1.7 mg/dL (1.8-2.4); Potassium 3.9 mmol/L (3.5-5.1); Sodium 146 mmol/L (136-145); Total Protein 7.2 g/dL (6.4-8.2)
--- NOTE | 2024-09-21 08:30 | CM.NOTE ---
Rounds made with Dr. Live, pt c/o seeing flashes of light (continuos). Dr. Live spoke with pt and regarding reason for admission and plan of care. Pt will have MRI today. PT and OT will also evaluate pt for discharge needs.
[2024-09-21] MEDS: MAGNESIUM SULFATE/D5W 1 GM/100 ML PREMIX IV (09:18)
[2024-09-21] MEDS: GLIMEPIRIDE 2 MG TABLET 0.5 MG PO (09:20)
[2024-09-21] MEDS: ALLOPURINOL 300 MG TABLET PO (09:20)
[2024-09-21] MEDS: ASPIRIN 81 MG TAB.CHEW PO (09:20)
--- NOTE | 2024-09-21 09:30 | MR_ITS ---
[address] [address] Patient Name: KARINA DE OLIVEIRA MRN: [id number] date: 1965 Sex: F Assigned Patient Location: MS Current Patient Location: MS Accession/Order Number: [id number] Exam Date: 09/21/2024 16:14 Report Date: 09/21/2024 16:31 At the request of: FE FLOR MD Procedure: MR head/brain wo con EXAMINATION: MRI OF THE BRAIN WITHOUT CONTRAST CLINICAL HISTORY: Altered mental status COMPARISON: CT angiogram 09/20/2024 TECHNIQUE: Multiecho, multiplanar imaging of the brain was performed without contrast FINDINGS: No restricted diffusion to suggest acute territorial infarct. Moderate involutional changes greatest involving the frontal lobes. No shift of midline structure. Basal cisterns are patent. Partially empty sella turcica.. There is diffusely diminished calvarial marrow signal MR/MR head/brain wo con IMPRESSION: Moderate involutional changes. No evidence acute intracranial process by MRI. Impression dictated by: Matt Patel M.D. 09/21/2024 4:31 PM Dictation Location: [place] [address] Electronically authenticated by: [id number] Y Date: 09/21/2024 16:31
--- NOTE | 2024-09-21 09:30 | XR_ITS ---
[facility] [place] [id number] Patient Name: KARINA DE OLIVEIRA MRN: [id number] date: 1965 Sex: F Assigned Patient Location: MS Current Patient Location: MS Accession/Order Number: [id number] Exam Date: 09/21/2024 16:02 Report Date: 09/21/2024 16:03 At the request of: FE FLOR MD Procedure: XR chest 1V Single view chest: CLINICAL HISTORY: Syncope COMPARISON: Chest 05/31/2023 FINDINGS: The heart is normal in size. The lungs are clear. The pulmonary vasculature is normal. Mediastinum and hilar regions are unremarkable. No pleural effusions are seen. Visualized bones are intact. XR/XR chest 1V IMPRESSION: NEGATIVE CHEST. Impression dictated by: Moustapha Penny Jr. DPasqualeOPasquale 09/21/2024 4:03 PM Dictation Location: [place] [address] Electronically authenticated by: [id number] Y Date: 09/21/2024 16:03
--- NOTE | 2024-09-21 09:35 | PM.HP ---
HPI H&P: HPI History of Present Illness Chief complaint: Acute Encephalopathy Narrative: Mrs. Weir is a 58-year-old female who was brought to the emergency room due to a change of mental status. reported that while patient was eating dinner she became very sleepy and groggy. Recall her name but she would not look at him. Patient continues to be lethargic on arrival to the emergency room department. Neurological exam completed in the emergency room department did not reveal any deficit. CAT scan of the head did not show any acute intracranial process. No fever or chills. This morning, the patient is back to baseline as stated. Able to provide information. Up in a chair eating her breakfast. Awake and alert. Coherent Patient reports having flashing lights in her eyes. No vision loss. Opioid HPI Opioid Management Most Recent Pain and Opioid Data: Last Pain Scale 7 06/22/24, 09:15 Last Pain Intensity 0 08/17/23, 11:26 Last Pain Assessment Today, 02:00 Last ORT Total Score 0 Today, 01:45 Last ORT Risk Category Low Risk Today, 01:45 Ur Phencyclidine Scrn, (NEGATIVE) Negative 09/20/24, 21:55 PFSH PFSH Medical History Morbid obesity due to excess calories ?E66.01 - Morbid (severe) obesity due to excess calories (ICD-10) Type 2 diabetes mellitus with hyperglycemia ?E11.65 - Type 2 diabetes mellitus with hyperglycemia (ICD-10) HTN (hypertension) ?I10 - Essential (primary) hypertension (ICD-10) Lumbar spondylosis ?M47.816 - Spondylosis without myelopathy or radiculopathy, lumbar region (ICD-10) Fracture of foot ?S92.909A - Unspecified fracture of unspecified foot, initial encounter for closed fracture (ICD-10) Closed fibular fracture ?S82.409A - Unspecified fracture of shaft of unspecified fibula, initial encounter for closed fracture (ICD-10) Fracture of medial cuneiform of left foot ?S92.242A - Displaced fracture of medial cuneiform of left foot, initial encounter for closed fracture (ICD-10) Fracture of metatarsal of left foot, closed ?S92.302A - Fracture of unspecified metatarsal bone(s), left foot, initial encounter for closed fracture (ICD-10) Dislocation of foot, left, closed ?S93.305A - Unspecified dislocation of left foot, initial encounter (ICD-10) Mild protein-calorie malnutrition ?E44.1 - Mild protein-calorie malnutrition (ICD-10) Acute exacerbation of chronic low back pain ?M54.50 - Low back pain, unspecified (ICD-10) ?G89.29 - Other chronic pain (ICD-10) Hyperlipidemia ?E78.5 - Hyperlipidemia, unspecified (ICD-10) Iron deficiency anemia ?D50.9 - Iron deficiency anemia, unspecified (ICD-10) Lumbar radiculopathy ?M54.16 - Radiculopathy, lumbar region (ICD-10) Chronic prescription opiate use ?Z79.891 - terminal worker (current) use of opiate analgesic (ICD-10) Sacroiliac joint pain ?M53.3 - Sacrococcygeal disorders, not elsewhere classified (ICD-10) Muscle spasm ?M62.838 - Other muscle spasm (ICD-10) Cervical spondylosis ?M47.812 - Spondylosis without myelopathy or radiculopathy, cervical region (ICD-10) Lumbar stenosis with neurogenic claudication ?M48.062 - Spinal stenosis, lumbar region with neurogenic claudication (ICD-10) Compression fracture of L1 vertebra ?S32.010A - Wedge compression fracture of first lumbar vertebra, initial encounter for closed fracture (ICD-10) Tubal ?O00.109 - Unspecified tubal without intrauterine (ICD-10) TMJ (dislocation of temporomandibular joint) ?S03.00XA - Dislocation of jaw, unspecified side, initial encounter (ICD-10) Upper back pain ?M54.9 - Dorsalgia, unspecified (ICD-10) Back pain ?M54.9 - Dorsalgia, unspecified (ICD-10) Neck pain ?M54.2 - Cervicalgia (ICD-10) Osteoarthritis ?M19.90 - Unspecified osteoarthritis, unspecified site (ICD-10) Obesity ?E66.9 - Obesity, unspecified (ICD-10) Heartburn ?R12 - Heartburn (ICD-10) Acid reflux ?K21.9 - Gastro-esophageal reflux disease without esophagitis (ICD-10) Smoker ?F17.200 - Nicotine dependence, unspecified, uncomplicated (ICD-10) Surgical History H/O unilateral salpingectomy ?Z90.79 - Acquired absence of other genital organ(s) (ICD-10) S/P lumbar spine operation ?Z98.890 - Other specified postprocedural states (ICD-10) H/O: hysterectomy ?Z90.710 - Acquired absence of both cervix and uterus (ICD-10) Family History Mother Family history of CHF (congestive heart failure) Family history of cancer Family history of diabetes mellitus Family history of hypertension Family history of myocardial infarction Social History Within the past year, how often did you have a drink containing alcohol: monthly or less Smoking status: Light tobacco smoker Non-prescribed substance use: denies use Previous occupational history: retired/disability Highest level of school completed/degree received: high school graduate Are you now , , , , never or living with a partner: In a typical week, how many times do you talk on the telephone with family, friends, or neighbors: 3 or more times per week How often do you get together with friends or relatives: 3 or more times per week How often do you attend tenriism or jainism services: never Little interest or pleasure in doing things: not at all Feeling down, depressed, or hopeless: not at all Feel stressed/tense/nervous/anxious/difficulty sleeping: not at all Do you think of yourself as: straight/heterosexual Gender Identity: female Meds Home Medications and Allergies Home Medications ?Medication ?Instructions ?Recorded ?Confirmed ?Type alendronate 70 mg tablet 70 mg PO QWEEK 07/20/22 09/21/24 History allopurinol 300 mg tablet 300 mg PO DAILY 07/20/22 09/21/24 History aspirin 81 mg tablet,delayed 81 mg PO DAILY 07/20/22 09/21/24 History release (Adult Aspirin Regimen) diclofenac sodium 75 mg 75 mg PO BID 07/20/22 09/21/24 History tablet,delayed release divalproex 500 mg tablet,delayed 500 mg PO BID 07/20/22 09/21/24 History release (Depakote) multivitamin 1 tab PO DAILY 07/20/22 09/21/24 History oxycodone-acetaminophen 5 mg-325 1 tab PO DAILY PRN pain 07/20/22 09/21/24 History mg tablet prasterone (DHEA) 50 mg capsule 25 mg PO BID 07/20/22 09/21/24 History (DHEA) famotidine 20 mg tablet 20 mg PO DAILY 06/08/23 09/21/24 History metformin 1,000 mg tablet 500 mg PO BID 06/08/23 09/21/24 History rizatriptan 10 mg tablet 10 mg PO Q2H PRN migraine headache 06/08/23 09/21/24 History rosuvastatin 20 mg tablet 20 mg PO DAILY 06/08/23 09/21/24 History pregabalin 75 mg capsule 75 mg PO TID 08/17/23 09/21/24 History semaglutide 1 mg/dose (4 mg/3 mL) 1 mg subcut QWEEK 08/17/23 09/21/24 History subcutaneous pen injector (Ozempic) baclofen 20 mg tablet 20 mg PO TID PRN muscle spasm #60 08/18/23 09/21/24 Rx tabs clindamycin phosphate 1 % lotion 1 applic topical DAILY 09/21/24 09/21/24 History (Cleocin T) colchicine 0.6 mg tablet 1.2 mg PO ONCE PRN pain 09/21/24 09/21/24 History furosemide 20 mg tablet 20 mg PO DAILY PRN edema 09/21/24 09/21/24 History glimepiride 1 mg tablet 0.5 mg PO .AM 09/21/24 09/21/24 History Allergies Allergy/AdvReac Type Severity Reaction Status Date / Time No Known Drug Allergies Allergy Verified 09/20/24 22:03 Exam Narrative Exam Narrative: [pt is awake and alert. oriented to place, time and person HEENT: [place] conjunctiva and NL buccal mucosa Neck: Supple, no tenderness Endocrine: No Thyromegaly. Vascular: No JVD or carotid bruit. Lymphatic: No cervical lymphadenopathy. Chest: CTA no DTP. Heart RRR, no extra sound or murmur. Abd: Soft, no tenderness, no rebound and no rigidity. Increase abd girth therefore clinically I could not exclude the possibility of intra abd mass or organomegaly. LE: No cyanosis or clubbing, no varices or edema. Neuro: A A O. Nl speech, comprehension and attention. Nl and symetrical motor and tone examination through out. Normal facial symmetry. No sensory loss. No ataxia. No nystagmus. No visual loss. []] Constitutional Vital Signs, click to edit/add: Last Vital Signs Temp 98.5 F 09/21/24 07:31 Pulse 103 H 09/21/24 08:03 Resp 18 09/21/24 07:31 BP 137/77 09/21/24 07:31 Pulse Ox 95 09/21/24 07:31 O2 Del Method Room Air 09/21/24 07:31 Results Labs Labs: Short CBC 09/20/24 09/21/24 Range/Units 22:00 05:04 WBC 11.9 H 11.0 (4.0-11.0) 10^3/uL Hgb 14.0 14.4 (12.0-16.0) g/dL Hct 41.0 42.9 (36.0-48.0) % Plt Count 205 196 (150-450) 10^3/uL BMP 09/20/24 09/21/24 22:00 05:04 Sodium 142 146 H Potassium 3.7 3.9 Chloride 102 106 Carbon Dioxide 33.5 H 31.0 BUN 24.0 H 19.0 H Creatinine 1.09 H 0.93 Glucose 120 H 103 Calcium 9.6 9.5 Liver Function 09/20/24 09/21/24 Range/Units 22:00 05:04 Total Bilirubin 0.3 0.3 (0.2-1.0) mg/dL AST 16 17 (15-37) U/L ALT 29 24 (14-59) U/L Alkaline Phosphatase 109 99 (46-116) U/L Albumin 3.3 L 3.2 L (3.4-5.0) g/dL Urine 09/20/24 Range/Units 21:55 Urine Color Lt. yellow (YELLOW) Urine Clarity Clear (CLEAR) Urine pH 7.0 (5.0-9.0) Ur Specific [place] <=1.005 A (1.005-1.025) Urine Protein Negative (NEG/TRACE) mg/dL Urine Glucose (UA) Negative (NEGATIVE) mg/dL ABG ABG results: 09/20/24 09/20/24 22:00 23:15 ABG pH 7.425 ABG pCO2 45.6 H ABG pO2 69.4 L ABG HCO3 29.9 H ABG O2 Saturation 95.5 ABG Base Excess 5.5 H ABG Methemoglobin <1.0 L VBG pH 7.394 VBG pCO2 52.9 H Assessment and Plan Assessment and Plan (1) Encephalopathy acute: (2) Hypomagnesemia: (3) Diabetes: (4) Migraine headache: Plan Encephalopathy Lethargic, grogginess and fogginess. No focal motor or sensory deficit Workup thus far has been unrevealing. CAT scan of the head showed microvascular disease but no acute intracranial process. CTA of the head and neck does not show any significant stenosis. Metabolic workup had been somewhat unrevealing with exception of mild dehydration. Toxicology screen is negative. UA is negative. No fever or chills. No nuchal rigidity. Patient is on a combination of medication with BUL[employer] PACKER side effect including baclofen, Depakote and Percocet. Patient might have taken extra doses. Patient is at risk think acute ischemic stroke due to hypertension, diabetes and smoking. Requested MRI of the brain rule out acute intracranial process. Alternatively patient could have had nonconvulsive seizure with a postictal state. May require to have EEG and additional neurological investigation that could be completed in the outpatient setting. Hypomagnesemia Magnesium supplementation. Check phosphorus level. Diabetes Metformin is on hold due to CTA completed within the last 24 hours. Continue Amaryl. Starting sliding scale DVT prophylax Lovenox subcu. Chronic medical conditions not listed above, incidental findings seen on labs and imaging. These would need to be addressed. Could be addressed when time and condition are appropriate. Could be addressed in the outpatient setting by PCP collaboration with other needed outpatient providers.
--- NOTE | 2024-09-21 09:54 | PC.NURSE ---
Patient called out that her own Yara was alarming for high sugar. Blood sugar checked at this time
[2024-09-21 09:57] LABS: Thyroid Stimulating Hormone 1.387 uIU/mL (0.358-3.740)
[2024-09-21] MEDS: DIVALPROEX SODIUM 500 MG TABLET.DR PO ×2 (10:03→20:40)
[2024-09-21] MEDS: 0.9 % SODIUM CHLORIDE 1,000 ML 100 ML IV (11:51)
--- NOTE | 2024-09-21 12:20 | SWNOTE1 ---
SW met with pt to discuss dc needs. Pt remembers talking with SW last year when she was here. She voiced she did not have any services coming in at that time and still does not. SW asked if she went to rehab before. She voiced she did go to [facility] one time and was there for a few weeks. Pt voiced she is doing well at home with her . Pt does not use any DME at home. Pt has a few steps to get in to home and does those fine. Pt voiced she is getting an MRI today. At this time pt has voiced no anticipated discharge needs. SW to follow as needed.
--- NOTE | 2024-09-21 12:22 | SWNOTE1 ---
SW did look at physical therapy note and home health is recommended. SW to stop back in to discuss with pt.
--- NOTE | 2024-09-21 13:52 | SWNOTE1 ---
SW stopped back in to discuss Home Health services with pt, but pt was sleeping at this time. SW to stop back in later today or tomorrow morning.
[2024-09-22 01:54] VITALS: PULSE 83
[2024-09-22 03:48] VITALS: PULSE 87
[2024-09-22 04:00] VITALS: BP 144/88; PULSE 76; TEMP 36.6; O2SAT 94
[2024-09-22 05:53] VITALS: PULSE 89
[2024-09-22 08:05] VITALS: BP 129/73; PULSE 83; TEMP 36.9; O2SAT 96
--- NOTE | 2024-09-22 09:08 | P.DS_ITS ---
DS: Providers Provider Date of admission: 09/21/24 01:38 Primary care physician: Ameena Vera NP Consults: 09/21/24 Occupational Therapy Eval and Treat Routine Reason for consultation: weakness Physical Therapy Eval and Treat Routine Reason for consultation: weakness DS: Diagnosis Discharge Diagnosis (1) Encephalopathy acute: (2) Hypomagnesemia: (3) Diabetes: (4) Migraine headache: (5) Carboxyhemoglobinemia: Assessment and plan: Mrs. Weir is a 58-year-old female who was brought in after she developed episode of lethargy, confusion, grogginess and diminished ability to be responsive. Encephalopathy Lethargic, grogginess and fogginess. No focal motor or sensory deficit Workup thus far has been unrevealing. CAT scan of the head showed microvascular disease but no acute intracranial process. CTA of the head and neck does not show any significant stenosis. MRI of the brain does not show any acute intracranial process. Metabolic workup had been somewhat unrevealing with exception of mild dehydration. Toxicology screen is negative. UA is negative. No fever or chills. No nuchal rigidity. Polypharmacy. Patient is on a combination of medication with CLOTH SPREADER side effect including baclofen, Lyrica Depakote and Percocet. Patient might have taken extra doses. Patient will be instructed to reduce her baclofen from 20 mg 3 times daily down to 10 mg twice daily as needed. Depakote level is normal. Resume valproic acid Lyrica will be reduced from 50 mg in the morning and 150 mg in the evening down to 150 mg in the evening time. Patient was found to have a carboxyhemoglobinemia. Patient had been at the [facility] when the episode happened. Patient will be instructed to avoid exposure to vehicle engine smoke, Grills, water heater, gas stove and other potential sources of carbon monoxide. Alternatively patient could have had nonconvulsive seizure with a postictal state. May require to have EEG and additional neurological investigation that could be completed in the outpatient setting if patient suffers future episode.. Elevated risk having ischemic stroke Continue aspirin for primary stroke prevention Strict control of blood pressure, diabetes and cholesterol. Continue statin and insulin. Hypomagnesemia Magnesium supplementation. Check phosphorus level. Phosphorus level is normal. Diabetes Metformin is on hold due to CTA completed within the last 24 hours. Continue Amaryl. Starting sliding scale DVT prophylax Lovenox subcu. Chronic medical conditions not listed above, incidental findings seen on labs and imaging. These would need to be addressed. Could be addressed when time and condition are appropriate. Could be addressed in the outpatient setting by PCP collaboration with other needed outpatient providers. Patient has multiple complex medical issues as listed above and others that are not listed. All appear to be stable. I do not have any clear or strong clinical justification to extend inpatient hospitalization. Patient however will require close and frequent monitoring as well as additional work-up, inve stigation and therapeutic intervention that could take place from this point on post discharge. That is to prevent relapse, decompensation, rehospitalization and other medical implications. I instructed patient to ask her primary care doctor to obtain [facility] record entirely to address abnormalities seen on labs and imaging that I have and have not addressed during this hospitalization, follow-up on pending blood work, imaging and pathology is if available and to follow-up on needed medical care in the outpatient setting. Plan As listed above and others that are not listed DS: Summary Hospital Course Hospital Course: As listed above in the diagnosis section Time Spent with Patient Time attestation: Total time spent providing and/or coordinating discharge services: Exam Narrative Exam Narrative: [pt is awake and alert. oriented to place, time and person HEENT: [place] conjunctiva and NL buccal mucosa Neck: Supple, no tenderness Endocrine: No Thyromegaly. Vascular: No JVD or carotid bruit. Lymphatic: No cervical lymphadenopathy. Chest: CTA no DTP. Heart RRR, no extra sound or murmur. Abd: Soft, no tenderness, no rebound and no rigidity. Increase abd girth therefore clinically I could not exclude the possibility of intra abd mass or organomegaly. LE: No cyanosis or clubbing, no varices or edema. Neuro: A A O. Nl speech, comprehension and attention. Nl and symetrical motor and tone examination through out. []] Constitutional Vital Signs, click to edit/add: Last Vital Signs Temp 98.5 F 09/22/24 08:05 Pulse 83 09/22/24 08:05 Resp 16 09/22/24 08:05 BP 129/73 09/22/24 08:05 Pulse Ox 96 09/22/24 08:05 O2 Del Method Room Air 09/22/24 08:05 DS: Data Data Completed and Pending Labs on day of discharge: Labs from last 24 hours 09/22/24 09/21/24 09/21/24 07:26 22:18 17:14 Phosphorus TSH POC Glucose 176 H 125 H 97 09/21/24 09/21/24 09/21/24 11:39 09:53 05:04 Phosphorus 3.6 TSH 1.387 POC Glucose 155 H 258 H Discharge Plan Discharge Disposition: Home, Self-Care Condition: Fair Discharge Medications: Continued alendronate 70 mg tablet 70 mg PO QWEEK allopurinol 300 mg tablet 300 mg PO DAILY aspirin [Adult Aspirin Regimen] 81 mg tablet,delayed release (DR/EC) 81 mg PO DAILY DHEA 50 mg capsule 25 mg PO DAILY divalproex [Depakote] 500 mg tablet,delayed release (DR/EC) 500 mg PO BID multivitamin Tablet 1 tab PO DAILY oxycodone-acetaminophen 5-325 mg tablet 1 tab PO DAILY PRN (Reason: pain) famotidine 20 mg tablet 20 mg PO BID rizatriptan 10 mg tablet 10 mg PO Q2H PRN (Reason: migraine headache) rosuvastatin 20 mg tablet 20 mg PO DAILY furosemide 20 mg tablet 20 mg PO .every other day clindamycin phosphate [Cleocin T] 1 % lotion 1 applic topical DAILY Rx Instructions: APPLY THIN LAYER TO AFFECTED AREAS ONB BODY EVERY DAY DURING FLARES metformin 500 mg tablet 500 mg PO BID Ozempic 2 mg/dose (8 mg/3 mL) pen injector 2 mg SUBCUT Q7D pregabalin [Lyrica] 150 mg capsule 150 mg PO HS Changed baclofen 20 mg tablet 10 mg PO BID PRN (Reason: muscle spasm) Qty: 60 0RF diclofenac sodium 75 mg tablet,delayed release (DR/EC) 75 mg PO BID PRN (Reason: pain) Qty: 0 0RF Discontinued pregabalin 75 mg capsule 75 mg PO DAILY Print Language: [place] Islander Activity Restrictions/Additional Instructions: I may not have addressed or treated all of your medical illnesses or the abnormal blood work or imaging studies during this hospitalization. Please ask your primary care provider to obtain [facility] records entirely to follow up on all of the abnormal physical, laboratory, and imaging findings that I have not addressed. Your carbon monoxide was slightly elevated in your system when you came in. Please inspect carbon monoxide detector at home and change batteries if needed Please avoid any exposure to vehicle engine fumes, dust, fireplace, furnaces, water heater/, drills, generators. Please follow the new medication regimen as listed above If you happen to have another episode of confusion, lethargy, grogginess you may require to have additional testing such as an EEG to make sure that you are not having atypical seizure. Please return back to the emergency room or seek medical attention if your symptoms worsen or return. Discharging you from [facility] does not mean that your medical care ends here and now. You may still need additional monitoring, work up, investigation, and treatment plan to be handled from this point on by out patient providers including your primary care provider and specialists. For any medication question, please contact your retail pharmacist or your primary care provider. Thank you. Forms: Portal Instructions Follow Up Appointments: 10/19 @ 11:30am with Ameena Vera NP [phone]
--- NOTE | 2024-09-22 09:31 | SWNOTE1 ---
SW stopped in and spoke with pt and about home health services that are being recommended by therapy. Pt is agreeable. She does not have a preference on HH companies. Pt will have limited options due to [employer] insurance. LALITO advised pt and that SW will work on this and let pt know company. She did voice they are staying at there camper and will be for awhile longer. SW was able to get address and will let HH company know this. LALITO sent message to [facility], they can review referral, but could be up to 5 business days for [employer] to get back to them. LALITO sent referral to [employer] as that is the only company that LALITO has listed that accepts [employer]. Referral sent to [facility].. Referral included face sheet, ED note, H&P, provider notes, case management report, and PT note.
[2024-09-22] MEDS: ALLOPURINOL 300 MG TABLET PO (09:32)
[2024-09-22] MEDS: ASPIRIN 81 MG TAB.CHEW PO (09:32)
[2024-09-22] MEDS: ENOXAPARIN SODIUM 40 MG/0.4 ML SYRINGE SUBQ (09:32)
[2024-09-22] MEDS: DIVALPROEX SODIUM 500 MG TABLET.DR PO (09:32)
--- NOTE | 2024-09-22 09:42 | CM.NOTE ---
Rounds made with Dr. Live. Dr. Live explains any medication adjustments or changes. Plan for discharge to home today with Home Health for P.T. and assisted. Follow up with PCP in one week. Verbalizes understanding.
--- NOTE | 2024-09-22 14:16 | SWNOTE1 ---
SW called [facility] and they are able to accept. LALITO sent CRF and dc summary to [facility]. LALITO called pt at home and let her know that [facility] accepted and they should be contacting her within 48 hours of discharge. She voiced understanding.
--- NOTE | 2024-09-23 15:19 | CM.DCFOLLOWU ---
1st attempt 09/23/24, no answer
--- NOTE | 2024-09-24 14:49 | CM.DCFOLLOWU ---
Person spoke with: Brian How are you feeling? Much better How is your pain? No pain Did you understand your discharge instructions? Yes Do you have any questions about your discharge instructions? No Were you given any prescriptions at discharge? No Were you able to get your prescriptions filled? N/A Do you understand how to take your medications as ordered? Yes Do you have any questions about your follow up appointment and do you plan to keep your follow up appointment? No questions and will go to f/u appt Is there anything else that you would like to discuss? No Questions/Comments/Concerns/Other:
== END 2024-09-22 10:40 | disposition home health service (06) | DRG 93 ==
LOC: ER 09-21 00:09 → MS 09-21 01:41
PROVIDERS: Admitting Provider Internal Medicine; Emergency Provider Student in an Organized Health Care Education/Training Program; PCP Nurse Practitioner; Visit Provider Internal Medicine
DX: G92.8 Other toxic encephalopathy (principal); E86.0 Dehydration; I10 Essential (primary) hypertension; G43.909 Migraine, unspecified, not intractable, without status migrainosus; E78.5 Hyperlipidemia, unspecified; F17.200 Nicotine dependence, unspecified, uncomplicated; E83.42 Hypomagnesemia; K21.9 Gastro-esophageal reflux disease without esophagitis; E11.9 Type 2 diabetes mellitus without complications; T42.8X5A Adverse effect of antiparkinsonism drugs and other central muscle-tone depressants, initial encounter; T42.6X5A Adverse effect of other antiepileptic and sedative-hypnotic drugs, initial encounter; T40.2X5A Adverse effect of other opioids, initial encounter; T59.7X1A Toxic effect of carbon dioxide, accidental (unintentional), initial encounter; Y92.833 Campsite as the place of occurrence of the external cause; Z79.82 Long term (current) use of aspirin; Z79.83 Long term (current) use of bisphosphonates; Z79.84 Long term (current) use of oral hypoglycemic drugs; Z79.85 Long-term (current) use of injectable non-insulin antidiabetic drugs; Z79.899 Other long term (current) drug therapy; Z79.891 Long term (current) use of opiate analgesic; Z90.710 Acquired absence of both cervix and uterus; Z82.49 Family history of ischemic heart disease and other diseases of the circulatory system
CPT/HCPCS: 36415; 36600; 70450; 70496; 70498; 70551; 71045; 80053; 80164; 80179; 80307; 80320; 80329; 81001; 82140; 82375; 82800; 82805; 82948; 83050; 83605; 83735; 84100; 84443; 84484; 85025; 85610; 85730; 93005; 94761; 97161; 97165; 97530; 99285; J1650; J2405; J3475

== ENCOUNTER 2024-10-07 11:22 | Outpatient (OUT) | payer MEDICARE, OTHER, SELFPAY ==
--- NOTE | 2024-10-07 12:04 | PM.CN ---
Consult Note: HPI Data of Consult Patient: known to practice within the last 3 years Requesting Physician: Chela Tijerina NP Primary Care Provider: Ameena Vera NP Consult Narrative Reason for consult: f/u Narrative: Brian Weir a pleasant 58 year old female presents for evaluation and management of chronic low back pain. pt has failed to benefit from 6 weeks of provider guided HEP/PT, tylenol, NSAIDs, heat and ice. Pain today 4/10 increasing to 7/10, pain increased with standing, walking, activity, lifting, stairs, bending, twisting, pushing, pulling. Pain improved with lying and reclining. Utilizes baclofen, diclofenac, lyrica, and percocet for pain with moderate relief without side effects. recently baclofen decreased from 20mg to 10mg BID PRN without increased pain due to fall. cc:: CC: Chela Tijerina NP Review of Systems ROS Status of ROS 10 or more systems reviewed and unremarkable except as noted in history and below Musculoskeletal Reports: back pain and joint pain PFSH PFSH Medical History Morbid obesity due to excess calories ?E66.01 - Morbid (severe) obesity due to excess calories (ICD-10) Type 2 diabetes mellitus with hyperglycemia ?E11.65 - Type 2 diabetes mellitus with hyperglycemia (ICD-10) HTN (hypertension) ?I10 - Essential (primary) hypertension (ICD-10) Lumbar spondylosis ?M47.816 - Spondylosis without myelopathy or radiculopathy, lumbar region (ICD-10) Fracture of foot ?S92.909A - Unspecified fracture of unspecified foot, initial encounter for closed fracture (ICD-10) Closed fibular fracture ?S82.409A - Unspecified fracture of shaft of unspecified fibula, initial encounter for closed fracture (ICD-10) Fracture of medial cuneiform of left foot ?S92.242A - Displaced fracture of medial cuneiform of left foot, initial encounter for closed fracture (ICD-10) Fracture of metatarsal of left foot, closed ?S92.302A - Fracture of unspecified metatarsal bone(s), left foot, initial encounter for closed fracture (ICD-10) Dislocation of foot, left, closed ?S93.305A - Unspecified dislocation of left foot, initial encounter (ICD-10) Mild protein-calorie malnutrition ?E44.1 - Mild protein-calorie malnutrition (ICD-10) Acute exacerbation of chronic low back pain ?M54.50 - Low back pain, unspecified (ICD-10) ?G89.29 - Other chronic pain (ICD-10) Hyperlipidemia ?E78.5 - Hyperlipidemia, unspecified (ICD-10) Iron deficiency anemia ?D50.9 - Iron deficiency anemia, unspecified (ICD-10) Lumbar radiculopathy ?M54.16 - Radiculopathy, lumbar region (ICD-10) Chronic prescription opiate use ?Z79.891 - terminal computer operator (current) use of opiate analgesic (ICD-10) Sacroiliac joint pain ?M53.3 - Sacrococcygeal disorders, not elsewhere classified (ICD-10) Muscle spasm ?M62.838 - Other muscle spasm (ICD-10) Cervical spondylosis ?M47.812 - Spondylosis without myelopathy or radiculopathy, cervical region (ICD-10) Lumbar stenosis with neurogenic claudication ?M48.062 - Spinal stenosis, lumbar region with neurogenic claudication (ICD-10) Compression fracture of L1 vertebra ?S32.010A - Wedge compression fracture of first lumbar vertebra, initial encounter for closed fracture (ICD-10) Tubal ?O00.109 - Unspecified tubal without intrauterine (ICD-10) TMJ (dislocation of temporomandibular joint) ?S03.00XA - Dislocation of jaw, unspecified side, initial encounter (ICD-10) Upper back pain ?M54.9 - Dorsalgia, unspecified (ICD-10) Back pain ?M54.9 - Dorsalgia, unspecified (ICD-10) Neck pain ?M54.2 - Cervicalgia (ICD-10) Osteoarthritis ?M19.90 - Unspecified osteoarthritis, unspecified site (ICD-10) Obesity ?E66.9 - Obesity, unspecified (ICD-10) Heartburn ?R12 - Heartburn (ICD-10) Acid reflux ?K21.9 - Gastro-esophageal reflux disease without esophagitis (ICD-10) Smoker ?F17.200 - Nicotine dependence, unspecified, uncomplicated (ICD-10) Surgical History H/O unilateral salpingectomy ?Z90.79 - Acquired absence of other genital organ(s) (ICD-10) S/P lumbar spine operation ?Z98.890 - Other specified postprocedural states (ICD-10) H/O: hysterectomy ?Z90.710 - Acquired absence of both cervix and uterus (ICD-10) Family History Mother Family history of CHF (congestive heart failure) Family history of cancer Family history of diabetes mellitus Family history of hypertension Family history of myocardial infarction Social History Within the past year, how often did you have a drink containing alcohol: monthly or less Smoking status: Light tobacco smoker Non-prescribed substance use: denies use Previous occupational history: retired/disability Highest level of school completed/degree received: high school graduate Are you now , , , , never or living with a partner: In a typical week, how many times do you talk on the telephone with family, friends, or neighbors: 3 or more times per week How often do you get together with friends or relatives: 3 or more times per week How often do you attend temple or rastafari services: never Little interest or pleasure in doing things: not at all Feeling down, depressed, or hopeless: not at all Feel stressed/tense/nervous/anxious/difficulty sleeping: not at all Do you think of yourself as: straight/heterosexual Gender Identity: female Meds Home Medications and Allergies Home Medications ?Medication ?Instructions ?Recorded ?Confirmed ?Type alendronate 70 mg tablet 70 mg PO QWEEK 07/20/22 09/21/24 History allopurinol 300 mg tablet 300 mg PO DAILY 07/20/22 09/21/24 History aspirin 81 mg tablet,delayed 81 mg PO DAILY 07/20/22 09/21/24 History release (Adult Aspirin Regimen) divalproex 500 mg tablet,delayed 500 mg PO BID 07/20/22 09/21/24 History release (Depakote) multivitamin 1 tab PO DAILY 07/20/22 09/21/24 History oxycodone-acetaminophen 5 mg-325 1 tab PO DAILY PRN pain 07/20/22 09/21/24 History mg tablet prasterone (DHEA) 50 mg capsule 25 mg PO DAILY 07/20/22 09/22/24 History (DHEA) famotidine 20 mg tablet 20 mg PO BID 06/08/23 09/22/24 History rizatriptan 10 mg tablet 10 mg PO Q2H PRN migraine headache 06/08/23 09/21/24 History rosuvastatin 20 mg tablet 20 mg PO DAILY 06/08/23 09/21/24 History clindamycin phosphate 1 % lotion 1 applic topical DAILY 09/21/24 09/21/24 History (Cleocin T) furosemide 20 mg tablet 20 mg PO .every other day edema 09/21/24 09/22/24 History diclofenac sodium 75 mg 75 mg PO BID PRN pain #0 tabs 09/22/24 09/21/24 Rx tablet,delayed release metformin 500 mg tablet 500 mg PO BID 09/22/24 09/22/24 History pregabalin 150 mg capsule (Lyrica) 150 mg PO HS 09/22/24 09/22/24 History semaglutide 2 mg/dose (8 mg/3 mL) 2 mg subcut Q7D 09/22/24 09/22/24 History subcutaneous pen injector (Ozempic) baclofen 10 mg tablet 10 mg PO BID 10/07/24 10/07/24 History Allergies Allergy/AdvReac Type Severity Reaction Status Date / Time No Known Drug Allergies Allergy Verified 09/20/24 22:03 Exam Constitutional Documenting provider has reviewed patient's vital signs: yes Common normals: no apparent distress, oriented x3, healthy appearing, alert and well nourished General appearance: cooperative HENWY Common normals: normocephalic, hearing grossly normal bilaterally and moist oral mucous membranes Head and scalp: normocephalic Eye Common normals: PERRL Pupil: PERRL Neck & C-Spine Common normals: full ROM General: normal visual inspection Chest Common normals: inspection of chest normal Respiratory Common normals: normal respiratory effort, no retractions and no use of accessory muscles Back & Pelvis Lumbar spine/lower back: lumbar ROM normal; no pain with ROM, no lumbar spinal tenderness, no paraspinal muscle tenderness and no paraspinal muscle spasm Sacroiliac joints: SI joint(s) abnormal Other: right sij positive paris(patricks), gaenslens, thigh thrust, compression test Neuro Common normals: oriented x3 Sensorium/orientation: alert Motor exam: strength 5/5 throughout and no movement abnormalities noted Psych Common normals: mental status grossly normal, thought process normal, cooperative, affect normal, speech normal and activity/motor behavior normal Speech: normal speech Thought process: normal thought process Results Additional Findings Additional findings: If on a controlled substance or opioids, I have checked an [place] report on this patient and there are no aberrancies noted in the prescribing history.??If on a controlled substance or opioid a drug screen was completed and reviewed within the last year, and if there has not been a drug screen completed we ordered one today to monitor higher risk, state monitored pain medication use. As part of providing excellent, safe, comprehensive care, the following was completed at our patient's visit: 1. A medication reconciliation and review to ensure accurate knowledge of current/active medications, including asking our patients to inform us about any [id number] medications or herbal remedies/nutritional supplements/alternative remedies. 2. A review to specifically ensure our patients have had annual screening for screening for depression, screening for tobacco use, and screening for unhealthy alcohol use. For concerning screenings had a discussion with the patient, provided patient education, and recommended follow-up with primary care provider when appropriate. If patient noted with a risk of falling, they received education on strength, gait, and balance training to prevent future risk of falling. Portions of this note may have been carried over from the previous visit and updated as appropriate. Please note this office utilizes paper charting in addition to the electronic medical record. A list of current medications, vitals, and PMH is available there as the clinical staff outside of myself do not have access to [employer] charting during the clinic day operations. As part of providing quality comprehensive care the current medications, vitals, and PMH were reviewed in the paper chart. Assessment and Plan Assessment and Plan (1) Sacroiliitis: Assessment and Plan: 06/22/24 right SIJ injection >50% improvement for 3 months (2) Lumbar spondylosis: (3) Myalgia, other site: (4) Chronic prescription opiate use: Assessment and Plan: I feel these medications are improving the patient's quality of life and allow them to tolerate activities of daily living as well as participate in recreational activity.? The patient does not report intolerable side effects. The patient is NOT opioid naive and non-pharmacologic and non-opioid treatment has failed to significantly relieve the patient's pain and improve functionality. The patient has a diagnosis that is related to a somatic or visceral pain etiology. ? ?? I reviewed with the patient the potential risks and side effects with the use of? opioid medications including but not limited to respiratory depression,? sedation, and even . Within the last 12 months I have verified the patient has access to naloxone should? these effects occur. The patient was advised to let? their family know they had Naloxone in case they would need to administer? the medication. I advised the patient to avoid the use of any other? sedation substances including alcohol, THC, and benzodiazepines while? taking opioid medications due to the risk of compounding side effects and? detrimental outcomes. within the last 12 months I have reviewed the [facility] ARCHIT[employer], pain treatment agreement and urine drug screen.? ?? A drug screen was completed within the last year, and no aberrancies were noted regarding their use of controlled substances. The patient understands they are subject to the terms and conditions of the pain contract that they have signed. ? ?? I have checked an [place]AR[place] report on this patient today and there are no aberrancies noted in the prescribing history.? (5) Sacroiliac joint pain: (6) Lumbar stenosis with neurogenic claudication: Plan repeat right SIJ injection under fluoroscopy, prior injection provided at least 50% improvement for 3 months continue current medications continue HEP as tolerated and continue care with home health/PT f/u after injection
--- OUTSIDE RECORDS SUMMARY | 2024-10-07 12:22 | XMS_ITS | CCD ---
Author Organization [facility] Care Team Providers Care General Car Yard Supervisor Name Role Phone House DO, Sr [...] Unavailable HOUSE, DR BASURTO Primary Care Unavailable [place], DR RYAN Guzman Consulting Unavailable HOUSE, DR [...] HOLM ., DR RICARDO Belcher Attending Unavailable PEIRCE ., CRYS Consulting Unavailable Elle Hendricks Unavailable Maricel HOLLIS, Barrios Primary Care Provider Vidal AUDITING CODER, Sonam Unavailable Ramesh HOLLIS, Jose Primary Care Provider Jose Chandler MD Primary Care Provider [phone] Vidal AUDITING CODER, Sonam Unavailable [phone] Rock HIGGINS, Za Unavailable Sivan Banda DO Unavailable Lui Banks II Attending UnavailLui Alvarado II Admitting Unavailcurtis e NON STAFF Primary Care Unavailable NON STAFF Primary Care Provider UnavailLui Alvarado MD Attending Provider [phone] Keo HOLLIS, Tanya Esposito Attending Unavailable Gillmor AUDITING CODER, Za Unavailable [phone] SONAM DRAKE Attending SONAM Justin Attending ALICIA [...] needed for muscle spasms 90 tablet 1 09/29/2024 10/29/2024 Active take 1 tablet by alonso th [...] 30 tablet 11/04/2023 12/18/2023 Discontinued Continuous Glucose Client Support Professional (Dexcom G7 Client Support Professional) device (20 sources) Start: 03-03-2024 Continuous Glu cose Client Support Professional (Dexcom G7 Client Support Professional) device Indications: Type 2 diabetes mellitus with diabetic microalbuminuria, without long-term current use of insulin (HCC) 1 each continuously 1 each 03/03/2024 Active Start: 03-03-2024 Continuous Glu cose Client Support Professional (Dexcom G7 Client Support Professional) device Indications: Type 2 diabetes mellitus with [...] Continuous Glucose Sensor (D excom G7 Sensor) [facility] [place] Indications: Type 2 diabetes mellitus with diabetic microalbuminuria, without long-term current use of insulin ([facility]) 1 each continuously 3 each 11 03/03/2024 03/30/2024 Discontinued (Reorder) Start: 03-03-2024 Continuous Glu cose Sensor (Dexcom G7 Sensor) [facility] [place] Indications: Type 2 diabetes mellitus with diabetic microalbuminuria, without long-term current use of insulin ([facility]) 1 each continuously 3 each 11 03/03/2024 [...] g 2 03/03/2024 08/20/2024 Discontinued (Therapy completed) furosemide 20 mg oral tablet (20 sources) Loop Diuretic Start: 08-05-2023 End: 11-18-2024 furosemide (Lasix) 20 MG tablet Indications: Bilateral lower extremity edema Take 1 tablet (20 mg) by mouth if needed (swelling in legs) Take 20 mg by mouth if needed 90 tablet 1 08/20/2024 11/18/2024 Active glimepiride 1 mg oral tablet (10 [...] evening. Take with meals. 180 tablet 1 08/31/2024 11/29/2024 Active take 1 tablet by alonso th [...] 75 mg oral capsule (20 sources) Start: 09-24-2024 End: 10-24-2024 take 1 capsule by mouth in the [...] (75 mg) before bedtime. 90 capsule 2 09/24/2024 10/24/2024 Active Start: 09-05-2023 End: 08-17-2024 take 1 capsule [...] (20 sources) HMG-CoA Reductase Inhibitor Start: End: take 1 tablet by mouth in the evening rosuvastatin (Crestor) 20 MG tablet Indications: Other hyperlipidemia Take 1 tablet (20 mg) by mouth in the evening 90 tablet 1 10/05/2024 01/03/2025 Active take 1 tablet by alonso th [...] microalbuminuria, without long-term current use of insulin ([facility]) Inject 2 mg under the skin every [...] crush, chew, or split. 180 tablet 1 08/31/2024 02/27/2025 Active Start: 01-12-2017 take 1 tablet by [...] 2024 1:17pm take 1 tablet by alonso every twenty-four hours Relpax 40 MG 1 [...] 12, 2017 1:00am January 15, 2017 2:23pm Hzrcetkozmku-Gb-B pablo-Minerals (Multiple Vitamin, Womens) Tablet (2 sources) Start: 01-12-2017 End: 01-15-2017 Yycmsicponyd-Nw-G pablo-Minerals (Multiple Vitamin, Womens) Tablet Discontinued PO Daily January 12, 2017 1:00am January 15, 2017 2:23pm 1 mg dose 1.5 ml semaglutide 1.34 mg/ml pen injector (12 sources) Start: 03-30-2024 End: 05-19-2024 inject 2 mg by subcutaneous injection every week semaglutide (Ozempic) 2 MG/1.5ML solution pen-injector Indications: Type 2 diabetes mellitus with diabetic microalbuminuria, without long-term current use of insulin ([facility]) Inject 2 mg under the skin 1 [...] 39.0-39.9, adult] Onset: 05-19-2024 05-19-2024 Chronic Other skin disorders (2 sources) Lentiginosis; Translations: [...] Onset: 05-19-2024 Resolved: 08-20-2024 05-19-2024 Episodic Other screening for suspected conditions (not mental disorders or infectious disease) (20 sources) Patient encounter status; Translations: [Encounter for screening for malignant neoplasm of cervix] Onset: 01-29-2023 Episodic Other upper respiratory infections (20 sources) Acute upper respiratory infection; Translations: [Acute upper respiratory infection, unspecified] Onset: 01-29-2023 Resolved: 08-20-2024 01-29-2023 Episodic Residual codes; unclassified (20 sources) [...] Interpretation and review of laboratory results Abnormal [facility] - Hematology and Cell countson 08-20-2024 HbA1c (Bld) [Mass fraction] 6.4 % [facility] ALL BASIC METABOLIC PANELon 07-09-2024 Anion gap [Moles/Vol] 11.6 mmol/L [facility] Calcium [Mass/Vol] 9.3 mg/dL 8.5 - 10. 1 mg/dL [facility] Chloride [Moles/Vol] 103 mmol/L 98 - 10 7 mmol/L [facility] CO2 [Moles/Vol] 33 mmol/L High 21.0 - 32.0 mmol/L [facility] Creatinine [Mass/Vol] 0.86 mg/dL 0.55 - 1.02 mg/dL [facility] GFR/1.73 sq M.predicted CKD-EPI (S/P/Bld) [Vol rate/Area] >60 >=60 mL/min/1.73m 2 [facility] Glucose [Mass/Vol] 107 mg/dL High 74 - 106 mg/dL [facility] Interpretation and review of laboratory results Abnormal [facility] Potassium [Moles/Vol] 4.6 mmol/L 3.5 - 5.1 mmol/L [facility] Sodium [Moles/Vol] 143 mmol/L 136 - 145 mmol/L [facility] TBH EGFR-NON AF NIUEAN >60 >=60 mL/min/1.73m 2 [facility] Urea nitrogen [Mass/Vol] 20 mg/dL High 7.0 - 18.0 mg/dL [facility] Urea nitrogen/Creatinine [Mass ratio] 23.3 mg/mg [facility] X-ray reportOrdered By: Anton Penny on 05-28-2024 Study report [facility] [address] [place] [address] XRay Report Signed Patient: Karina De Oliveira MR#: [id number] : 1965 Acct:[id number] Age/Sex: 58 / F ADM Date: 5 Loc: SOXD Room: Type: [facility] Attending Dr: Lui Banks II, MD Copies to: Lui Banks MD~ Ordering Provider: Lui Banks MD Date of Service: 05/28/24 XR/XR knee RT 4V*: M25.561 - Pain in right knee ([id number]) XR/XR pelvis 1-2V: M25.561 - Pain in [...] Penny Jr., D.OPasquale05/28/2024 3:24 PM Dictation Location: [place] [address] Transcribed By: [facility] 05/28/24 1524 Dictated By: Moustapha Penny Jr, DO 05/28/24 1523 Signed By: 05/28/24 1524 [facility] XR knee RT 4V*on 05-28-2024 XR knee RT 4V* [facility] [address] [place] [id number] XRay Report Signed Patient: Karina De Oliveira MR#: [id number] : 1965 Acct:[id number] Age/Sex: 58 / F ADM Date: 05/28/24 Loc: [facility] Room: Type: [facility] Attending Dr: Lui Banks II, MD Copies to: Lui Banks MD Ordering Provider: Lui Banks MD Date of Service: 05/28/24 XR/XR knee RT 4V*: M25.561 - Pain in right knee ([id number]) XR/XR pelvis 1-2V: M25.561 - Pain in [...] Penny Jr., D.OPasquale05/28/2024 3:24 PM Dictation Location: [place] [address] Transcribed By: [facility] 05/28/24 1524 Dictated By: Moustapha Penny Jr DO 05/28/24 1523 Signed By: 05/28/24 1524 Normal [facility] ALL CBC WITH AUTO DIFFon BASOPHILS ABSOLUTE AUTO 0.1 [facility] Basophils/100 WBC (Bld) 0.5 % 0.2 - 2.0 % [facility] Eosinophils/100 WBC (Bld) 4 % 0.9 - 7.0 % [facility] Erythrocyte distribution width (RBC) [Ratio] 14.6 % 11.0 - 15.0 % [facility] Hematocrit (Bld) [Volume fraction] 41.6 % 36.0 - 48.0 % [facility] Hemoglobin (Bld) [Mass/Vol] 14.1 g/dL 12.0 - 16.0 g/dL [facility] IMMATURE GRANULOCYTES ABS AUTO 0.07 High [facility] Immature granulocytes/100 WBC (Bld) 0.6 % High 0.0 - 0.5 % [facility] Interpretation and review of laboratory results Abnormal [facility] LYMPHOCYTES ABSOLUTE AUTO 3.6 [facility] Lymphocytes/100 WBC (Bld) 32.6 % 20.5 - 60.0 % [facility] MCH (RBC) [Entitic mass] 32.3 pg 26.7 - 34.0 pg [facility] MCHC (RBC) [Mass/Vol] 33.9 g/dL 29.9 - 35.2 g/dL [facility] MCV (RBC) [Entitic vol] 95.2 fL 81.0 - 99.0 fL [facility] Monocytes/100 WBC (Bld) 6.9 % 1.7 - 12.0 % [facility] NEUTROPHILS ABSOLUTE AUTO 6.2 [facility] Neutrophils/100 WBC (Bld) 55.4 % 43.0 - 75.0 % [facility] Platelet mean volume (Bld) [Entitic vol] 10.7 fL 9.5 - 13.5 fL [facility] TBH EO # 0.4 [facility] TBH PLT [address] [facility] RBC 4.37 [facility] WBC 11.1 High [facility] XR Knee - right [address] [place] [address] XRay Report Signed Patient: KARINA DE OLIVEIRA MR#: [id number] : 1965 Acct:[id number] Age/Sex: 58 / F ADM Date: 05/21/24 Loc: LAB Attending Dr: Ameena Vera NP Ordering Physician: Ameena Vera NP Date of Service: 05/21/24 Procedure(s): XR knee RT 3V Accession Number(s): [id number] cc: Ameena Vera NP [place] [address] Patient Name: KARINA DE OLIVEIRA MRN: [facility]:[id number] date: 1965 Sex: F Assigned Patient Location: LAB Current Patient Location: LAB Accession/Order Number: [id number] Exam Date: 05/21/2024 13:21 Report Date: 05/21/2024 [...] Penny Jr., D.O.05/21/2024 1:21 PM Dictation Location: [place] [address] Electronically authenticated by: [id number] Y Date: 05/21/2024 13:21 Dictated By: Moustapha Penny M.D. Signed By: 05/21/24 132 DD/ 20 TD/TT: Title Curative Specialist: [facility] Radiology, Radiologist, - 05/21/[address] [address] XRay Report Signed Patient: KARINA DE OLIVEIRA MR#: [id number] : 1965 Acct:[id number] Age/Sex: 58 / F ADM Date: 05/21/24 Loc: LAB Attending Dr: Ameena Vera NP Ordering Physician: Ameena Vera NP Date of Service: 05/21/24 Procedure(s): XR knee RT 3V Accession Number(s): [id number] cc: Ameena Vera NP The [place] [address] Patient Name: KARINA DE OLIVEIRA MRN: [facility]:[id number] date: 1965 Sex: F Assigned Patient Location: LAB Current Patient Location: LAB Accession/Order Number: [id number] Exam Date: 05/21/2024 13:21 Report Date: 05/21/2024 [...] Penny Jr., D.O.05/21/2024 1:21 PM Dictation Location: [place] [address] Electronically authenticated by: [id number] Y Date: 05/21/2024 13:21 Dictated By: Moustapha Penny M.D. Signed By: 05/21/24 1324 DD/ 1321 TD/TT: Title Curative Specialist: [facility] Radiology Study observation (narrative) [facility] XR Knee - right 3 ViewsOrder ed By: Radiologist Radiology on 05-21-2024 [facility] Work Phone: HbA1c (Bld) [Mass fraction]o n 05-19-2024 Interpretation and review of laboratory results Abnormal [facility] - Hematology and Cell countson 05-19-2024 HbA1c (Bld) [Mass fraction] 6.70 % [facility] HbA1c (Bld) [Mass fraction]o n 03-30-2024 Interpretation and review of laboratory results Abnormal [facility] - Hematology and Cell countson 03-30-2024 HbA1c (Bld) [Mass fraction] 6.9 % [facility] MM TOMOSYNTHESIS SCREENING B Ion 03-18-2024 [place] [address] Mammography Report Signed Patient: KARINA DE OLIVEIRA MR#: [id number] : 1965 Acct:[id number] Age/Sex: 58 / F ADM Date: 03/18/24 Loc: MAMMO Attending Dr: RADHA BARCLAY Ordering Physician: RADHA BARCLAY Results: Date of Service: 03/18/24 Follow Up: Procedure(s): MM tomosynthesis screening BI Accession Number(s): [id number] cc: LOCO DRAKE SUSAN Patient Name: KARINA DE OLIVEIRA MR#: [id number] : 1965 Exam Date: 03/18/2024 Ordering Doctor: DR RADHA BARCLAY [facility] RADIOLOGY REPORT PROCEDURE: MM TOMOSYNTHESIS SCREENING [...] skin cancer at age 69. LOCATION: The [facility] BREAST COMPOSITION: There are scattered areas [...] Salter M.D. Signed By: 03/18/24 1454 DD/ 1454 TD/TT: Title Curative Specialist: [facility] Radiology, Radiologist, MD - 03/18/2024 [place] [address] Mammography Report Signed Patient: KARINA DE OLIVEIRA MR#: [id number] : 1965 Acct:[id number] Age/Sex: 58 / F ADM Date: 03/18/24 Loc: MAMMO Attending Dr: RADHA BARCLAY Ordering Physician: RADHA BARCLAY Results: Date of Service: 03/18/24 Follow Up: Procedure(s): MM tomosynthesis screening BI Accession Number(s): [id number] cc: LOCO DRAKE SUSAN Patient Name: KARINA DE OLIVEIRA MR#: [id number] : 1965 Exam Date: 03/18/2024 Ordering Doctor: DR RADHA BARCLAY [facility] RADIOLOGY REPORT PROCEDURE: MM TOMOSYNTHESIS SCREENING [...] skin cancer at age 69. LOCATION: The [facility] BREAST COMPOSITION: There are scattered areas [...] Salter M.D. Signed By: 03/18/24 1454 DD/ 1454 TD/TT: Title Curative Specialist: [facility] Radiology Study observation (narrative) [facility] MM TOMOSYNTHESIS SCREENING B IOrdered By: Radiologist Radiology on 03-18-2024 [facility] Work Phone: ALL CBC WITH AUTO DIFFon BASOPHILS ABSOLUTE AUTO 0.1 [facility] Basophils/100 WBC (Bld) 0.4 % 0.2 - 2.0 % [facility] Eosinophils/100 WBC (Bld) 3.2 % 0.9 - 7.0 % [facility] Erythrocyte distribution width (RBC) [Ratio] 15.6 % High 11.0 - 15.0 % [facility] Hematocrit (Bld) [Volume fraction] 42.4 % 36.0 - 48.0 % [facility] Hemoglobin (Bld) [Mass/Vol] 13.9 g/dL 12.0 - 16.0 g/dL [facility] IMMATURE GRANULOCYTES ABS AUTO 0.09 High [facility] Immature granulocytes/100 WBC (Bld) 0.7 % High 0.0 - 0.5 % [facility] Interpretation and review of laboratory results Abnormal [facility] LYMPHOCYTES ABSOLUTE AUTO 3.5 [facility] Lymphocytes/100 WBC (Bld) 27.7 % 20.5 - 60.0 % [facility] MCH (RBC) [Entitic mass] 31.4 pg 26.7 - 34.0 pg [facility] MCHC (RBC) [Mass/Vol] 32.8 g/dL 29.9 - 35.2 g/dL [facility] MCV (RBC) [Entitic vol] 95.7 fL 81.0 - 99.0 fL [facility] MONOCYTES ABSOLUTE AUTO 0.9 High [facility] Monocytes/100 WBC (Bld) 7.4 % 1.7 - 12.0 % [facility] NEUTROPHILS ABSOLUTE AUTO 7.7 High [facility] Neutrophils/100 WBC (Bld) 60.6 % 43.0 - 75.0 % [facility] Platelet mean volume (Bld) [Entitic vol] 10.9 fL 9.5 - 13.5 fL [facility] TBH EO # 0.4 [facility] TBH PLT 219 [facility] TB RBC 4.43 [facility] TB WBC 12.8 High [facility] XR LSPINE 2_3 VIEWSon 2022 [...] PATTIE SALTER Date: 2022-06-07 11:15 Normal [facility] CBC AUTO DIFFon 04-12-2022 BASO # 0.1 103/ul Normal 0.0-0.1 [facility] Comment on above: Performed By: #### C BC ####[facility] [address] [place] [id number]. Ricky Valenzuela Basophils/100 WBC (Bld) 0.5 % Normal 0.2-2.0 [facility] Comment on above: Performed By: #### C BC ####[facility] [address] [place] [address]Dr. Ricky Valenzuela EO # 0.3 103/ul Normal 0.0-0.7 [facility] Comment on above: Performed By: #### C BC ####[facility] [address] [place], [place] [address]Dr. Ricky Valenzuela Eosinophils/100 WBC (Bld) 3.0 % Normal 0.9-7.0 [facility] Comment on above: Performed By: #### C BC ####[facility] [address] [place], [place] [address]Dr. Ricky Valenzuela Erythrocyte distribution width (RBC) [Ratio] 14.8 % Normal 11.0-15.0 [facility] Comment on above: Performed By: #### C BC ####[facility] [address] [place], [place] [address]Dr. Ricky Valenzuela Hematocrit (Bld) [Volume fraction] 40.6 % Normal 36.0-48.0 [facility] Comment on above: Performed By: #### C BC ####[facility] [address] [place], [place] [address]Dr. Ricky Valenzuela Hemoglobin (Bld) [Mass/Vol] 13.5 g/dL Normal 12.0-16.0 [facility] Comment on above: Performed By: #### C BC ####[facility] [address] [place], [place] [address]Dr. Ricky Valenzuela IG # 0.16 10e3/ul Critically high 0.00-0.03 [facility] Comment on above: Performed By: #### C BC ####[facility] [address] [place], [place] [address]Dr. Ricky Valenzuela IG % 1.4 % Critically high 0.0-0.5 [facility] Comment on above: Performed By: #### C BC ####[facility] [address] [place] [address]Dr. Ricky Valenzuela LYMPH # 3.4 103/ul Normal 1.2-3.8 [facility] Comment on above: Performed By: #### C BC ####[facility] [address] [place] [address]Dr. Ricky Nicolas Lymphocytes/100 WBC (Bld) 30.4 % Normal 20.5-60.0 [facility] Comment on above: Performed By: #### C BC ####[facility] [address] [place] [address]Dr. Ricky Valenzuela MANUAL DIFF REQ NO Normal [facility] Comment on above: Performed By: #### C BC ####[facility] [address] [place] [address]Dr. Ricky Nicolas MCH (RBC) [Entitic mass] 31.8 pg Normal 26.7-34.0 [facility] Comment on above: Performed By: #### C BC ####[facility] [address] [place] [address]Dr. Ricky Valenzuela MCHC (RBC) [Mass/Vol] 33.3 g/dL Normal 29.9-35.2 [facility] Comment on above: Performed By: #### C BC ####[facility] [address] [place] [address]Dr. Ricky Valenzuela MCV (RBC) [Entitic vol] 95.5 fL Normal 81.0-99.0 [facility] Comment on above: Performed By: #### C BC ####[facility] [address] [place] [address]Dr. Lesleysharron Nicolas MONO # 0.9 103/ul Critically high 0.3-0.8 [facility] Comment on above: Performed By: #### C BC ####[facility] [address] [place] [address]Dr. Ricky Valenzuela Monocytes/100 WBC (Bld) 7.7 % Normal 1.7-12.0 [facility] Comment on above: Performed By: #### C BC ####[facility] [address]sp[address] [place] [address]Dr. Ricky Valenzuela NEUT # 6.3 103/ul Normal 1.4-6.5 [facility] Comment on above: Performed By: #### C BC ####[facility] [address] [place] [address]Dr. Ricky Valenzuela Neutrophils/100 WBC (Bld) 57.0 % Normal 43.0-75.0 [facility] Comment on above: Performed By: #### C BC ####[facility] T[address] [place] [address]Dr. Ricky Valenzuela Platelet mean volume (Bld) [Entitic vol] 9.8 fL Normal 9.5-13.5 [facility] Comment on above: Performed By: #### C BC ####[facility] [address] [place] [address]Dr. Ricky Valenzuela PLT 246 103/ul Normal 150-450 [facility] Comment on above: Performed By: #### C BC ####[facility] [address]os[address] [place] [address]Dr. Ricky Valenzuela RBC 4.25 106/ul Normal 4.20-5.40 [facility] Comment on above: Performed By: #### C BC ####[facility] [address] [place] [address]Dr. Ricky Valenzuela WBC 11.1 103/ul Critically high 4.0-11.0 [facility] Comment on above: Performed By: #### C BC ####[facility] [address] [place] [address]Dr. Ricky Valenzuela GLYCOHEMOGLOBIN A1Con 2022 ADA RECOMMENDATION SEE BELOW Normal [facility] Comment on above: Result Comment: ADA RECOMMENDED LIMIT 4.0 - 6.0 ADA THERAPEUTIC TARGET < 7.0 ACTION SUGGESTED > 7.0 Performed By: #### A 1C ####[facility] [address] [place] [address]Dr. Ricky Valenzuela Glucose [Mass/Vol] 160 mg/dL Normal [facility] Comment on above: Performed By: #### A 1C ####[facility] [address] [place] [id number]. Ricky Valenzuela HbA1c (Bld) [Mass fraction] 7.2 % Critically high 4.5-6.2 [facility] Comment on above: Performed By: #### A 1C ####[facility] [address] [place] [address]Dr. Ricky Valenzuela MICROALBUMIN, RAND URon 03-0 mALB <1.3 Normal <=30.0 [facility] Comment on above: Performed By: #### M ALBR #### [facility] [address] [place] [address] [address] Ricky Valenzuela PROF 14(COMP METB)on 023 Albumin [Mass/Vol] 3.3 g/dL Critically low 3.4-5.0 [facility] Comment on above: Performed By: #### C MP #### [facility] [address] [place] [address] Dr. Ricky Valenzuela Albumin/Globulin [Mass ratio] 0.9 {ratio} Normal [facility] Comment on above: Performed By: #### C MP #### [facility] [address] [place] [address] [address] Ricky Valenzuela ALP [Catalytic activity/Vol] 90 U/L Normal 46-116 [facility] Comment on above: Performed By: #### C MP #### [facility] [address] [place] [address] [address] Ricky Valenzuela ALT [Catalytic activity/Vol] 42 U/L Normal 14-59 [facility] Comment on above: Performed By: #### C MP #### [facility] [address] [place] [address] Dr. Ricky Valenzuela Anion gap [Moles/Vol] 10.1 mmol/L Normal [facility] Comment on above: Performed By: #### C MP #### [facility] [address] [place] [address] [address] Ricky Valenzuela AST [Catalytic activity/Vol] 21 U/L Normal 15-37 [facility] Comment on above: Performed By: #### C MP #### [facility] [address] [place] [address] [address] Ricky Valenzuela Bilirubin [Mass/Vol] 0.3 mg/dL Normal 0.2-1.0 [facility] Comment on above: Performed By: #### C MP #### [facility] [address] [place] [address] [address] Ricky Valenzuela Calcium [Mass/Vol] 9.8 mg/dL Normal 8.5-10.1 [facility] Comment on above: Performed By: #### C MP #### [facility] [address] [place] [address] [address] Ricky Valenzuela Chloride [Moles/Vol] 99 mmol/L Normal 98-107 [facility] Comment on above: Performed By: #### C MP #### [facility] [address] [place] [address] Dr. Ricky Valenzuela CO2 [Moles/Vol] 33.7 mmol/L Critically high 21.0-32.0 [facility] Comment on above: Performed By: #### C MP #### [facility] [address] [place] [address] Dr. Ricky Valnezuela Creatinine [Mass/Vol] 0.94 mg/dL Normal 0.55-1.02 [facility] Comment on above: Performed By: #### C MP #### [facility] [facility] [address] [place] [address] Dr. Ricky Valenzuela EGFR-AF NIUEAN >60 Normal >=60 [facility] Comment on above: Performed By: #### C MP #### [facility] [address] [address] [address] Ricky Valenzuela EGFR-NON AF NIUEAN >60 Normal >=60 [facility] Comment on above: Performed By: #### C MP #### [facility] [address] [address] [address] Ricky Valenzuela Globulin (S) [Mass/Vol] 3.8 g/dL Normal [facility] Comment on above: Performed By: #### C MP #### [facility] [address] [address] [address] Ricky Valenzuela Glucose [Mass/Vol] 168 mg/dL Critically high 74-106 [facility] Comment on above: Performed By: #### C MP #### [facility] [address] [address] [address] Ricky Valenzuela Potassium [Moles/Vol] 4.8 mmol/L Normal 3.5-5.1 [facility] Comment on above: Performed By: #### C MP #### [facility] [address] [address] [address] Ricky Valenzuela Protein [Mass/Vol] 7.1 g/dL Normal 6.4-8.2 [facility] Comment on above: Performed By: #### C MP #### [facility] [address] [address] [address] Ricky Valenzuela Sodium [Moles/Vol] 138 mmol/L Normal 136-145 [facility] Comment on above: Performed By: #### C MP #### [facility] [address] [address] [address] Ricky Valenzuela Urea nitrogen [Mass/Vol] 22.0 mg/dL Critically high 7.0-18.0 [facility] Comment on above: Performed By: #### C MP #### [facility] [address] [address] [address] Ricky Valenzuela Urea nitrogen/Creatinine [Mass ratio] 23.4 mg/mg Normal [facility] Comment on above: Performed By: #### C MP #### [facility] [id number] Ricky Valenzuela Cytologyon 08-30-2021 Cytology (NOTE) INTERPRETATION Vaginal material, (ThinPrep vial, Imaging-assisted review): Specimen Adequacy: Satisfactory for evaluation. Descriptive Diagnosis: Negative for intraepithelial lesion or malignancy. Cistern Room Working Supervisor: CLARK Delacruz(ASCP) Electronically Signed Out zackary/09/07/2021 Source: A: Vaginal material, (ThinPrep vial, Imaging-assisted review) Clinical History Hysterectomy Surgery: Salpingostomy; Ovary removal Z12.4 Encounter for screening for malignant neoplasm of cervix GYNECOLOGIC CYTOLOGY REPORT Patient Name: KARINA DE OLIVEIRA [facility] Rec: [id number] Path Number: [id number] [facility] CONSULTING PATHOLOGISTS [facility] ANATOMIC PATHOLOGY [address] [place] [id number] Normal [facility] Comment on above: Performed By: #### P PPVP #### [address] [id number] Trouble Tracer: Luca Cummins MD CBC AUTO DIFFon 08-09-2021 BASO # 0.1 103/ul Normal 0.0-0.1 [facility] Comment on above: Performed By: #### C BC #### [facility] [address] [place] [address] Dr. Ricky Valenzuela Basophils/100 WBC (Bld) 0.8 % Normal 0.2-2.0 [facility] Comment on above: Performed By: #### C BC #### [facility] [address] [place] [address] Dr. Ricky Valenzuela EO # 0.2 103/ul Normal 0.0-0.7 [facility] Comment on above: Performed By: #### C BC #### [facility] [address] [place] [address] Dr. Ricky Valenzuela Eosinophils/100 WBC (Bld) 2.1 % Normal 0.9-7.0 [facility] Comment on above: Performed By: #### C BC #### [facility] [address] [place] [address] Dr. Ricky Valenzuela Erythrocyte distribution width (RBC) [Ratio] 15.2 % Critically high 11.0-15.0 [facility] Comment on above: Performed By: #### C BC #### [facility] [address] [place] [address] Dr. Ricky Valenzuela Hematocrit (Bld) [Volume fraction] 41.5 % Normal 36.0-48.0 [facility] Comment on above: Performed By: #### C BC #### [facility] [address] [address] [address] Ricky Valenzuela Hemoglobin (Bld) [Mass/Vol] 13.5 g/dL Normal 12.0-16.0 [facility] Comment on above: Performed By: #### C BC #### [facility] [address] [address] [address] Ricky Valenzuela IG # 0.42 10e3/ul Critically high 0.00-0.03 [facility] Comment on above: Performed By: #### C BC #### [facility] [address] [address] [address] Ricky Valenzuela IG % 3.8 % Critically high 0.0-0.5 [facility] Comment on above: Performed By: #### C BC #### [facility] [address] [place] [address] Dr. Ricky Valenzuela LYMPH # 3.3 103/ul Normal 1.2-3.8 [facility] Comment on above: Performed By: #### C BC #### [facility] [address] [place] [address] Dr. Ricky Valenzuela Lymphocytes/100 WBC (Bld) 29.1 % Normal 20.5-60.0 [facility] Comment on above: Performed By: #### C BC #### [facility] [address] [place] [address] Dr. Ricky Valenzuela MANUAL DIFF REQ NO Normal [facility] Comment on above: Performed By: #### C BC #### [facility] [address] [address] [address] Ricky Valenzuela MCH (RBC) [Entitic mass] 32.4 pg Normal 26.7-34.0 [facility] Comment on above: Performed By: #### C BC #### [facility] [address] [place] [address] Dr. Ricky Valenzuela MCHC (RBC) [Mass/Vol] 32.5 g/dL Normal 29.9-35.2 [facility] Comment on above: Performed By: #### C BC #### [facility] [address] [address] [address] Ricky Valenzuela MCV (RBC) [Entitic vol] 99.5 fL Critically high 81.0-99.0 [facility] Comment on above: Performed By: #### C BC #### [facility] [address] [place] [address] Dr. Ricky Valenzuela MONO # 0.8 103/ul Normal 0.3-0.8 [facility] Comment on above: Performed By: #### C BC #### [facility] [address] [place] [address] Dr. Ricky Valenzuela Monocytes/100 WBC (Bld) 7.5 % Normal 1.7-12.0 [facility] Comment on above: Performed By: #### C BC #### [facility] [address] [place] [address] Dr. Ricky Valenzuela NEUT # 6.3 103/ul Normal 1.4-6.5 [facility] Comment on above: Performed By: #### C BC #### [facility] [address] [place] [address] Dr. Ricky Valenzuela Neutrophils/100 WBC (Bld) 56.7 % Normal 43.0-75.0 [facility] Comment on above: Performed By: #### C BC #### [facility] [address] [place] [address] Dr. Ricky Valenzuela Platelet mean volume (Bld) [Entitic vol] 9.8 fL Normal 9.5-13.5 [facility] Comment on above: Performed By: #### C BC #### [facility] [address] [place] [address] Dr. Ricky Valenzuela PLT 265 103/ul Normal 150-450 [facility] Comment on above: Performed By: #### C BC #### [facility] [address] [place] [address] Dr. Ricky Valenzuela RBC 4.17 106/ul Critically low 4.20-5.40 [facility] Comment on above: Performed By: #### C BC #### [facility] [address] [place] [address] Dr. Ricky Valenzuela WBC 11.2 103/ul Critically high 4.0-11.0 [facility] Comment on above: Performed By: #### C BC #### [facility] [address] [place], [place] [address] Dr. Ricky Valenzuela GLYCOHEMOGLOBIN A1Con 2021 ADA RECOMMENDATION SEE BELOW Normal [facility] [place] Comment on above: Result Comment: ADA RECOMMENDED LIMIT 4.0 - 6.0 ADA THERAPEUTIC TARGET < 7.0 ACTION SUGGESTED > 7.0 Performed By: #### A 1C ####[facility] [address] [place], [place] [address]QlDr. Ricky Valenzuela Glucose [Mass/Vol] 183 mg/dL Normal [facility] [place] Comment on above: Performed By: #### A 1C ####[facility] [address] [place], [place] [address]SgDr. Ricky Valenzuela HbA1c (Bld) [Mass fraction] 8.0 % Critically high 4.5-6.2 [facility] Comment on above: Performed By: #### A 1C ####[facility] [address] [place], [place] [address]AzDr. Ricky Valenzuela LIPID PROFILEon 08-09-2021 CHOL-HDL RATIO NORM SEE BELOW Normal [facility] Comment on above: Result Comment: 3.3 - 4.4 LOW RISK 4.4 - 7.1 AVERAGE RISK 7.1 - 11.0 MODERATE RISK >11.0 HIGH RISK Performed By: #### C MP, LIPID #### [facility] [id number] Ricky Valenzuela Cholesterol [Mass/Vol] 239 mg/dL Critically high <=200 [facility] Comment on above: Performed By: #### C MP, LIPID #### [facility] [id number] Ricky Valenzuela Cholesterol in HDL [Mass/Vol] 36 mg/dL Critically low 40-60 [facility] Comment on above: Performed By: #### C MP, LIPID #### [facility] [id number] Ricky Valenzuela Cholesterol in LDL [Mass/Vol] 164.2 mg/dL Normal [facility] Comment on above: Performed By: #### C MP, LIPID #### [facility] [address] [address] [address] Ricky Valenzuela Cholesterol.total/Ch olesterol in HDL [Mass ratio] 6.6 {ratio} Normal [facility] Comment on above: Performed By: #### C MP, LIPID #### [facility] [id number] Ricky Valenzuela HDL NORMAL > or = 60 mg/dl - LO W CARDIOVASCULAR RISK <40 mg/dl - HIGH CARDIOVASCULAR RISK Normal [facility] Comment on above: Performed By: #### C MP, LIPID #### [facility] [address] [address] [address] Ricky Valenzuela LDL CALC NORMAL SEE BELOW Normal [facility] Comment on above: Result Comment: <100 mg/dl OPTIMAL 100 - 129 mg/dl NEAR OR ABOVE OPTIMAL 130 - 159 mg/dl BORDERLINE HIGH 160 - 189 mg/dl HIGH >190 mg/dl VERY HIGH Performed By: #### C MP, LIPID #### [facility] [address] [address] [address] Ricky Valenzuela Triglyceride [Mass/Vol] 194 mg/dL Critically high <=150 [facility] Comment on above: Performed By: #### C MP, LIPID #### [facility] [address] [address] [address] Ricky Valenzuela VLDL CALC 38.8 mg/dL Normal [facility] Comment on above: Performed By: #### C MP, LIPID #### [facility] [id number] Ricky Valenzuela MICROALBUMIN, RAND URon 07-13 mALB 13.1 mg/L Normal <=30.0 [facility] Comment on above: Performed By: #### M ALBR ####[facility] [address] [address]Dr. Ricky Valenzuela PROF 14(COMP METB)on 022 Albumin [Mass/Vol] 3.3 g/dL Critically low 3.4-5.0 [facility] Comment on above: Performed By: #### C MP, LIPID #### [facility] [address] [address] [address] Ricky Valenzuela Albumin/Globulin [Mass ratio] 0.8 {ratio} Normal [facility] Comment on above: Performed By: #### C MP, LIPID #### [facility] [address] [address] [address] Ricky Valenzuela ALP [Catalytic activity/Vol] 93 U/L Normal 46-116 [facility] Comment on above: Performed By: #### C MP, LIPID #### [facility] [address] [address] [address] Ricky Valenzuela ALT [Catalytic activity/Vol] 37 U/L Normal 14-59 [facility] Comment on above: Performed By: #### C MP, LIPID #### [facility] [address] [address] [address] Ricky Valenzuela Anion gap [Moles/Vol] 10.9 mmol/L Normal [facility] Comment on above: Performed By: #### C MP, LIPID #### [facility] [address] [address] [address] Ricky Valenzuela AST [Catalytic activity/Vol] 10 U/L Critically low 15-37 [facility] Comment on above: Performed By: #### C MP, LIPID #### [facility] [address] [address] [address] Ricky Valenzuela Bilirubin [Mass/Vol] 0.2 mg/dL Normal 0.2-1.0 [facility] Comment on above: Performed By: #### C MP, LIPID #### [facility] [address] [address] [address] Ricky Valenzuela Calcium [Mass/Vol] 9.0 mg/dL Normal 8.5-10.1 [facility] Comment on above: Performed By: #### C MP, LIPID #### [facility] [address] [address] [address] Ricky Valenzuela Chloride [Moles/Vol] 100 mmol/L Normal 98-107 [facility] Comment on above: Performed By: #### C MP, LIPID #### [facility] [address] [address] [address] Ricky Valenzuela CO2 [Moles/Vol] 32.2 mmol/L Critically high 21.0-32.0 [facility] Comment on above: Performed By: #### C MP, LIPID #### [facility] [address] [address] [address] Ricky Valenzuela Creatinine [Mass/Vol] 0.95 mg/dL Normal 0.55-1.02 [facility] Comment on above: Performed By: #### C MP, LIPID #### [facility] [address] [address] [address] Ricky Valenzuela EGFR-AF NIUEAN >60 Normal >=60 [facility] Comment on above: Performed By: #### C MP, LIPID #### [facility] [address] [place] [address] Dr. Ricky Valenzuela EGFR-NON AF NIUEAN >60 Normal >=60 [facility] Comment on above: Performed By: #### C MP, LIPID #### [facility] [address] [address] [address] Ricky Valenzuela Globulin (S) [Mass/Vol] 4.2 g/dL Normal [facility] Comment on above: Performed By: #### C MP, LIPID #### [facility] [address] [address] [address] Ricky Valenzuela Glucose [Mass/Vol] 200 mg/dL Critically high 74-106 [facility] Comment on above: Performed By: #### C MP, LIPID #### [facility] [address] [address] [address] Ricky Valenzuela Potassium [Moles/Vol] 4.1 mmol/L Normal 3.5-5.1 [facility] Comment on above: Performed By: #### C MP, LIPID #### [facility] [address] [address] [address] Ricky Valenzuela Protein [Mass/Vol] 7.5 g/dL Normal 6.4-8.2 [facility] Comment on above: Performed By: #### C MP, LIPID #### [facility] [address] [place], [place] [address] Dr. Ricky Valenzuela Sodium [Moles/Vol] 139 mmol/L Normal 136-145 [facility] Comment on above: Performed By: #### C MP, LIPID #### [facility] [address] [address] [address] Ricky Valenzuela Urea nitrogen [Mass/Vol] 13.0 mg/dL Normal 7.0-18.0 [facility] Comment on above: Performed By: #### C MP, LIPID #### [facility] [address] [address] [address] Ricky Valenzuela Urea nitrogen/Creatinine [Mass ratio] 13.7 mg/mg Normal [facility] Comment on above: Performed By: #### C MP, LIPID #### [facility] [address] [address] [address] Ricky Valenzuela POINT OF CARE GLUCOSEon 06-12 Glucose [Mass/Vol] 176 mg/dL Critically high 74-106 [facility] Comment on above: Performed By: #### P OCGLUC #### [facility] [address] [address] [address] Ricky Valenzuela Vital Signs Date Time Vital Sign Value Performing Clinician Facility 08-20-2024 11:10-0400 Diastolic blood pressure 58 mm[Hg] Ameena Vera AUDITING CODER Work Phone: [facility] 08-20-2024 11:10-0400 Systolic blood pressure 90 mm[Hg] Ameena Vera AUDITING CODER Work Phone: [facility] 08-20-2024 10:37-0400 Body mass index (BMI) [Ratio] 39.74 kg/m2 Ameena Vera AUDITING CODER Work Phone: [facility] 08-20-2024 10:37-0400 Body temperature 98.49 [degF] Ameena Vera AUDITING CODER Work Phone: [facility] 08-20-2024 10:37-0400 Body weight 96.98 kg Ameena Vera AUDITING CODER Work Phone: [facility] 08-20-2024 10:37-0400 Heart rate 101 /min Ameena Vera AUDITING CODER Work Phone: [facility] 08-20-2024 10:37-0400 Respiratory rate 18 /min Ameena Vera AUDITING CODER Work Phone: [facility] 08-20-2024 10:37-0400 SaO2% (BldA) [Mass fraction] 93 % Ameena Vera AUDITING CODER Work Phone: [facility] 07-29-2024 14:08-0400 Body height 156.2 cm Kasi Bennett MD Work Phone: [facility] 07-29-2024 14:08-0400 Body mass index (BMI) [Ratio] 39.04 kg/m2 Kasi Bennett MD Work Phone: [facility] 07-29-2024 14:08-0400 Body weight 95.25 kg Kasi Bennett MD Work Phone: [facility] 07-29-2024 14:08-0400 Diastolic blood pressure 64 mm[Hg] Kasi Bennett MD Work Phone: [facility] 07-29-2024 14:08-0400 Heart rate 86 /min Kasi Bennett MD Work Phone: [facility] 07-29-2024 14:08-0400 Respiratory rate 18 /min Kasi Bennett MD Work Phone: [facility] 07-29-2024 14:08-0400 SaO2% (BldA) [Mass fraction] 93 % Kasi Bennett MD Work Phone: [facility] 07-29-2024 14:08-0400 Systolic blood pressure 100 mm[Hg] Kasi Bennett MD Work Phone: [facility] 05-28-2024 13:16-0400 Body height 154.94 cm [facility] 05-28-2024 13:16-0400 Body mass index (BMI) [Ratio] 39.4 kg/m2 [facility] 05-28-2024 13:16-0400 Body weight 94.8 kg [facility] 05-19-2024 11:10-0400 Body height 157.5 cm Ameena Davisdeidrez AUDITING CODER Work Phone: [facility] 05-19-2024 11:10-0400 Body mass index (BMI) [Ratio] 39.03 kg/m2 Ameena Aichholz AUDITING CODER Work Phone: [facility] 05-19-2024 11:10-0400 Body temperature 98.29 [degF] Ameena Pohholz AUDITING CODER Work Phone: [facility] 05-19-2024 11:10-0400 Body weight 96.8 kg Ameena Pohholz AUDITING CODER Work Phone: [facility] 05-19-2024 11:10-0400 Diastolic blood pressure 80 mm[Hg] Ameena Aichholz AUDITING CODER Work Phone: [facility] 05-19-2024 11:10-0400 Heart rate 91 /min Ameena Aichholz AUDITING CODER Work Phone: [facility] 05-19-2024 11:10-0400 Respiratory rate 18 /min Ameena Pohholz AUDITING CODER Work Phone: [facility] 05-19-2024 11:10-0400 SaO2% (BldA) [Mass fraction] 96 % Ameena Ryanholz AUDITING CODER Work Phone: [facility] 05-19-2024 11:10-0400 Systolic blood pressure 116 mm[Hg] Ameena Aichholz AUDITING CODER Work Phone: [facility] 04-21-2024 13:08-0400 Body height 157.5 cm Za Wilkerson AUDITING C[employer]ER Work Phone: [facility] 04-21-2024 13:08-0400 Body mass index (BMI) [Ratio] 39.51 kg/m2 Za Shipmanr AUDITING C[employer]ER Work Phone: [facility] 04-21-2024 13:08-0400 Body weight 97.98 kg Za Shipmanr AUDITING CODER Work Phone: [facility] 04-21-2024 13:08-0400 Diastolic blood pressure 86 mm[Hg] Za Shipmanr AUDITING CODER Work Phone: [facility] 04-21-2024 13:08-0400 Heart rate 96 /min Za Shipmanr AUDITING CODER Work Phone: [facility] 04-21-2024 13:08-0400 SaO2% (BldA) [Mass fraction] 93 % Za Shipmanr AUDITING CODER Work Phone: [facility] 04-21-2024 13:08-0400 Systolic blood pressure 148 mm[Hg] Za Shipmanr AUDITING CODER Work Phone: [facility] 03-30-2024 09:40-0500 Body height 157.5 cm Sonam Drake AUDITING CODER Work Phone: [facility] 03-30-2024 09:40-0500 Body mass index (BMI) [Ratio] 39.51 kg/m2 Sonam Drake AUDITING CODER Work Phone: [facility] 03-30-2024 09:40-0500 Body temperature 97.3 [degF] Sonam Drake AUDITING CODER Work Phone: [facility] 03-30-2024 09:40-0500 Body weight 97.98 kg Sonam Drake AUDITING CODER Work Phone: [facility] 03-30-2024 09:40-0500 Diastolic blood pressure 74 mm[Hg] Sonam Drake AUDITING CODER Work Phone: [facility] 03-30-2024 09:40-0500 Heart rate 76 /min Sonam Drake AUDITING CODER Work Phone: [facility] 03-30-2024 09:40-0500 Respiratory rate 16 /min Sonam Drake AUDITING CODER Work Phone: [facility] 03-30-2024 09:40-0500 SaO2% (BldA) [Mass fraction] 98 % Sonam Drake AUDITING CODER Work Phone: [facility] 03-30-2024 09:40-0500 Systolic blood pressure 130 mm[Hg] Sonam Drake AUDITING CODER Work Phone: [facility] 03-03-2024 10:13-0500 Body height 157.5 cm Sonam Drake AUDITING CODER Work Phone: [facility] 03-03-2024 10:13-0500 Body mass index (BMI) [Ratio] 39.51 kg/m2 Sonam Drake AUDITING CODER Work Phone: [facility] 03-03-2024 10:13-0500 Body temperature 97.2 [degF] Sonam Drake AUDITING CODER Work Phone: [facility] 03-03-2024 10:13-0500 Body weight 97.98 kg Sonam Drake AUDITING CODER Work Phone: [facility] 03-03-2024 10:13-0500 Diastolic blood pressure 76 mm[Hg] Sonam Drake AUDITING CODER Work Phone: [facility] 03-03-2024 10:13-0500 Heart rate 84 /min Sonam Drake AUDITING CODER Work Phone: [facility] 03-03-2024 10:13-0500 Respiratory rate 16 /min Sonam Drake AUDITING CODER Work Phone: [facility] 03-03-2024 10:13-0500 SaO2% (BldA) [Mass fraction] 96 % Sonam Drake AUDITING CODER Work Phone: [facility] 03-03-2024 10:13-0500 Systolic blood pressure 120 mm[Hg] Sonam Drake AUDITING CODER Work Phone: [facility] 12-31-2023 10:06-0500 Body height 157.5 cm Sivan Solo DO Work Phone: [facility] 12-31-2023 10:06-0500 Body mass index (BMI) [Ratio] 39.14 kg/m2 Sivan Solo DO Work Phone: [facility] 12-31-2023 10:06-0500 Body weight 97.07 kg Sivan Solo DO Work Phone: [facility] 12-31-2023 10:06-0500 Diastolic blood pressure 72 mm[Hg] Sivan Solo DO Work Phone: [facility] 12-31-2023 10:06-0500 Heart rate 95 /min Sivan Solo DO Work Phone: [facility] 12-31-2023 10:06-0500 SaO2% (BldA) [Mass fraction] 97 % Sivan Solo DO Work Phone: [facility] 12-31-2023 10:06-0500 Systolic blood pressure 118 mm[Hg] Sivan Solo DO Work Phone: [facility] 12-30-2023 10:46-0500 Body mass index (BMI) [Ratio] 40.06 kg/m2 Sonam Drake AUDITING CODER Work Phone: [facility] 12-30-2023 10:46-0500 Body weight 99.34 kg Sonam Draek AUDITING CODER Work Phone: [facility] 12-30-2023 10:46-0500 Diastolic blood pressure 74 mm[Hg] Sonam Drake AUDITING CODER Work Phone: [facility] 12-30-2023 10:46-0500 Heart rate 97 /min Sonam Drake AUDITING CODER Work Phone: [facility] 12-30-2023 10:46-0500 SaO2% (BldA) [Mass fraction] 98 % Sonam Drake AUDITING CODER Work Phone: [facility] 12-30-2023 10:46-0500 Systolic blood pressure 98 mm[Hg] Sonam Drake AUDITING CODER Work Phone: [facility] 10-03-2023 10:07-0400 Body height 157.5 cm Sonam Drake AUDITING CODER Work Phone: [facility] 10-03-2023 10:07-0400 Body mass index (BMI) [Ratio] 39.32 kg/m2 Sonam Drake AUDITING CODER Work Phone: [facility] 10-03-2023 10:07-0400 Body temperature 97.5 [degF] Sonam Drake AUDITING CODER Work Phone: [facility] 10-03-2023 10:07-0400 Body weight 97.52 kg Sonam Drake AUDITING CODER Work Phone: [facility] 10-03-2023 10:07-0400 Diastolic blood pressure 70 mm[Hg] Sonam Drake AUDITING CODER Work Phone: [facility] 10-03-2023 10:07-0400 Heart rate 107 /min Sonam Drake AUDITING CODER Work Phone: [facility] Comment on above: 97% O2 10-03-2023 10:07-0400 Systolic blood pressure 90 mm[Hg] Sonam Drake AUDITING CODER Work Phone: [facility] 01-18-2023 09:10-0500 Body height 156.21 cm Elle eHndricks Other [facility] Other 01-18-2023 09:10-0500 Body mass index (BMI) [Ratio] 42.82 kg/m2 Elle Hendricks Other [facility] Other 01-18-2023 09:10-0500 Body temperature 98.2 [degF] Elle Hendricks Other [facility] Other 01-18-2023 09:10-0500 Body weight 104.51 kg Elle Hendricks Other [facility] Other 01-18-2023 09:10-0500 Diastolic blood pressure 92 mm[Hg] Elle Hendricks Other [facility] Other 01-18-2023 09:10-0500 Respiratory rate 18 /min Elle Hendricks Other [facility] Other 01-18-2023 09:10-0500 SaO2% (BldA) [Mass fraction] 97 % Elle Hendricks Other [facility] Other 01-18-2023 09:10-0500 Systolic blood pressure 145 mm[Hg] Elle Hendricks Other [facility] Other Encounters Encounter Date Encounter Type Care Provider Facility Start: 10-05-2024 End: 10-05-2024 Refill Jose Chandler MD Work Phone: [facility] Comment on above: Other hyperlipidemia Start: 09-29-2024 End: 09-29-2024 Refill Ameena Aichholz AUDITING CODER Work Phone: [facility] Comment on above: Lumbar back pain Start: 09-23-2024 End: 09-24-2024 Refill Ameena Aichholz AUDITING CODER Work Phone: [facility] Comment on above: Diabetic polyneuropa thy associated with type 2 diabetes mellitus (HCC) Start: 08-20-2024 End: 08-31-2024 ambulatory AMEENA AICHHOLZ Not Available Comment on above: Bilateral lower extr emity edema; Migraine with aura and without status migrainosus, not intractable ; Type 2 diabetes mellitus with diabetic microalbuminuria, without long-term current use of insulin (HCC); Osteoporosis, unspecified osteoporosis type, unspecified pathological fracture presence Start: 08-20-2024 End: 08-20-2024 Office outpatient visit 25 minutes Ameena Vera NP Work Phone: [facility] Comment on above: Type 2 diabetes cory itus with diabetic microalbuminuria, without long-term current use of insulin (HCC) (Primary Dx); Essential hypertension; Morbid (severe) obesity due to excess calories (E66.01); Cigarette nicotine dependence without complication; Chronic gout of multiple sites, unspecified cause; Gastroesophageal reflux disease without esophagitis; Bilateral lower extremity edema Start: 08-05-2024 End: 08-05-2024 Refill Ameena Chuy AUDITING CODER Work Phone: [facility] Comment on above: Chronic gout of mult iple sites, unspecified cause (Primary Dx) Type 2 diabetes cory itus with diabetic microalbuminuria, without long-term current use of insulin (HCC) Start: 08-02-2024 End: 08-04-2024 Refill Jose Chandler MD Work Phone: [facility] Comment on above: Lumbar back pain Start: 07-29-2024 End: 07-29-2024 Bamboo flowsheet Kasi Bennett MD Work Phone: [facility] Start: 07-29-2024 End: 07-29-2024 Bamboo flowsheet Kasi Bennett MD Work Phone: [facility] Start: 07-29-2024 End: 07-29-2024 Office outpatient new 45 minutes Kasi Bennett MD Work Phone: [facility] Comment on above: Hypercalcemia (Prima ry Dx); Low serum parathyroid hormone (PTH); Vitamin D deficiency Start: 07-29-2024 End: 07-29-2024 ambulatory KASI BENNETT Not Available Start: 07-26-2024 End: 07-27-2024 Refill Ameena Chuy HIGGINS Work Phone: [facility] Comment on above: Lumbar back pain Start: 07-22-2024 End: 07-22-2024 Refill Jose Chandler MD Work Phone: [facility] Comment on above: Type 2 diabetes cory itus with diabetic microalbuminuria, without long-term current use of insulin ([facility] Start: 07-14-2024 End: 07-14-2024 Orders Only Ameena Nettiez AUDITING CODER Work Phone: [facility] Comment on above: Low serum parathyroi d hormone (PTH) (Primary Dx) Start: 07-09-2024 End: 07-09-2024 Clinisync Result Encounter Ameena Nettiez AUDITING CODER Work Phone: [facility] External Department Unsolicited Start: 07-09-2024 End: 07-09-2024 Clinisync Result Encounter Ameena Nettiez AUDITING CODER Work Phone: [facility] External Department Unsolicited Start: 06-23-2024 End: 06-23-2024 Refill Ameena Aichholz AUDITING CODER Work Phone: [facility] Comment on above: Diabetic polyneuropa thy associated with type 2 diabetes mellitus ([facility] Start: 06-22-2024 End: 06-22-2024 ambulatory Tanya Crowley MD Facility:[facility] Start: 06-11-2024 End: 06-11-2024 Refill Ameena Aichholz AUDITING CODER Work Phone: [facility] Comment on above: Acute non-recurrent sinusitis of other sinus (Primary Dx) Start: 06-03-2024 End: 06-03-2024 Orders Only Ameena Aichdeidrez AUDITING CODER Work Phone: [facility] Comment on above: Hypercalcemia (Prima ry Dx); Low serum parathyroid hormone (PTH) Start: 05-28-2024 End: 05-28-2024 Patient encounter procedure [facility] Work Phone: Start: 05-28-2024 End: 05-28-2024 Patient encounter procedure [facility] Start: 05-28-2024 End: 05-28-2024 ambulatory Lui Banks II Facility:[facility] Start: 05-22-2024 End: 05-22-2024 Orders Only Ameenaovidio Vera AUDITING CODER Work Phone: [facility] Comment on above: Hypercalcemia (Prima ry Dx) Start: 05-21-2024 End: 05-21-2024 Clinisync Result Encounter Ameena Aichholz AUDITING CODER Work Phone: [facility] External Department Unsolicited Start: 05-21-2024 End: 05-21-2024 Clinisync Result Encounter Ameena Aichholz AUDITING CODER Work Phone: [facility] External Department Unsolicited Start: 05-19-2024 End: 05-19-2024 Bamboo flowsheet Ameena Aichholz AUDITING CODER Work Phone: [facility] Start: 05-19-2024 End: 05-19-2024 Bamboo flowsheet Ameena Aichholz AUDITING CODER Work Phone: [facility] Start: 05-19-2024 End: 05-19-2024 ambulatory AMEENA AICHHOLZ Not Available Start: 05-19-2024 End: 05-19-2024 Office outpatient visit 25 minutes Ameena Nettiez AUDITING CODER Work Phone: [facility] Comment on above: Type 2 diabetes cory itus with diabetic microalbuminuria, without long-term current use of insulin ([facility]) (Primary Dx); Morbid (severe) obesity due to excess calories (CMS/HCC); Other hyperlipidemia; Body mass index (BMI) 39.0-39.9, adult; JANETT (obstructive sleep apnea); Bilateral lower extremity edema; Migraine with aura and without status migrainosus, not intractable (CMS/HCC); Cigarette nicotine dependence without complication; Hypercalcemia; Essential hypertension; Elevated blood uric acid level; Lumbar back pain; Gastroesophageal reflux disease without esophagitis; Chronic gout of multiple sites, unspecified cause; Acute pain of right knee; Diabetic polyneuropathy associated with type 2 diabetes mellitus ([facility] Start: 05-06-2024 End: 05-06-2024 Refill Jose Chandler MD Work Phone: [facility] Comment on above: Bilateral lower extr emity edema (Primary Dx) Start: 04-21-2024 End: 04-21-2024 Bamboo flowsheet Za Wilkerson AUDITING CODER Work Phone: [facility] Start: 04-21-2024 End: 04-21-2024 Bamboo flowsheet Za Wilkerson AUDITING CODER Work Phone: [facility] Start: 04-21-2024 End: 04-21-2024 ambulatory ZA WILKERSON Not Available Start: 04-21-2024 End: 04-21-2024 Office outpatient visit 25 minutes Za Wilkerson NP Work Phone: [facility] Comment on above: JANETT (obstructive sle ep apnea) (Primary Dx); Hypersomnia; Snoring; Primary insomnia; Tobacco abuse Start: 03-30-2024 End: 03-30-2024 Bamboo flowsheet Sonam Drake AUDITING CODER Work Phone: [facility] Start: 03-30-2024 End: 03-30-2024 Bamboo flowsheet Sonam Drake AUDITING CODER Work Phone: [facility] Start: 03-30-2024 [...] microalbuminuria, without long-term current use of insulin ([facility]) Start: 03-30-2024 End: 03-30-2024 Office outpatient visit 15 minutes Sonam Valenciatrick AUDITING CODER Work Phone: [facility] Comment on above: Type 2 diabetes cory itus with diabetic microalbuminuria, without long-term current use of insulin ([facility]) (Primary Dx); Essential hypertension; Other hyperlipidemia ([facility]); JANETT (obstructive sleep apnea); Type 2 diabetes mellitus without complication, without long-term current use of insulin ([facility]) Start: 03-18-2024 End: 03-18-2024 Clinisync Result Encounter Generic External Data Provider [facility] External Department Unsolicited Start: 03-18-2024 End: 03-18-2024 Clinisync Result Encounter Generic External Data Provider [facility] External Department Unsolicited Start: 03-16-2024 End: 03-16-2024 Refill Sonam Drake AUDITING CODER Work Phone: [facility] Comment on above: Gastroesophageal ref lux disease without esophagitis Start: 03-09-2024 End: 03-09-2024 Refill Sonam Drake AUDITING CODER Work Phone: [facility] Comment on above: Osteoporosis, unspec ified osteoporosis type, unspecified pathological fracture presence ([facility]) Start: 03-03-2024 End: 03-03-2024 Bamboo flowsheet Sonam Drake AUDITING CODER Work Phone: [facility] Start: 03-03-2024 End: 03-03-2024 Bamboo flowsheet Sonam Drake AUDITING CODER Work Phone: [facility] Start: 03-03-2024 End: 03-03-2024 ambulatory SONAM DRAKE Not Available Start: 03-03-2024 End: 03-03-2024 Office outpatient visit 10 minutes Sonam Drake AUDITING CODER Work Phone: [facility] Comment on above: Upper respiratory in fection with cough and congestion (Primary Dx); Lumbar back pain; Migraine with aura and without status migrainosus, not intractable ([facility]); Type 2 diabetes mellitus with diabetic microalbuminuria, without long-term current use of insulin ([facility]); Diabetic polyneuropathy associated with type 2 diabetes mellitus ([facility]); Other hyperlipidemia ([facility]) Start: 01-30-2024 End: 01-30-2024 Refill Jolly Castaneda MA [facility] Comment on above: Lumbar back pain (Pr imary Dx); Type 2 diabetes mellitus with diabetic microalbuminuria, without long-term current use of insulin ([facility]) Start: 01-14-2024 End: 01-14-2024 Refill Jolly Castaneda MA [facility] Comment on above: Lumbar back pain Start: 12-31-2023 End: 12-31-2023 Clinisync Result Encounter Sonam Drake AUDITING CODER Work Phone: [facility] External Department Unsolicited Start: 12-31-2023 End: 12-31-2023 Clinisync Result Encounter Sonam Drake AUDITING CODER Work Phone: [facility] External Department Unsolicited Start: 12-31-2023 End: 12-31-2023 Office consultation new/estab patient 60 min Sivan Banda DO Work Phone: [facility] [facility] Comment on above: JANETT (obstructive sle ep apnea) (Primary Dx); Hypersomnia; Snoring; Primary insomnia; Tobacco abuse Start: 12-31-2023 End: 12-31-2023 ambulatory SIVAN BANDA Not Available Start: 12-30-2023 End: 12-30-2023 Bamboo flowsheet Sonam Drake AUDITING CODER Work Phone: [facility] Start: 12-30-2023 End: 12-30-2023 Bamboo flowsheet Sonam Princek AUDITING CODER Work Phone: [facility] Start: 12-30-2023 End: 12-30-2023 Office outpatient visit 15 minutes Sonam Drake AUDITING CODER Work Phone: [facility] Comment on above: Type 2 diabetes cory itus with diabetic microalbuminuria, without long-term current use of insulin ([facility] [place] [place] (Primary Dx); Essential hypertension; Other hyperlipidemia ([facility]); Snoring; Mixed urge and stress incontinence Start: 12-30-2023 End: 12-30-2023 ambulatory SONAM DRAKE Not Available Start: 12-17-2023 End: 12-17-2023 Refill Jolly Castaneda MA [facility] Comment on above: Migraine with aura a nd without status migrainosus, not intractable ([facility] [place] [place] Diabetic polyneuropathy associated with type 2 diabetes mellitus ([facility] [place] [place] Start: 12-17-2023 End: 12-18-2023 Refill Sonam Drake AUDITING CODER Work Phone: [facility] Comment on above: Gout, unspecified ca use, unspecified chronicity, unspecified site Start: 11-04-2023 End: 11-04-2023 Refill Stiven Omalley MA [facility] Comment on above: Gout, unspecified ca use, unspecified chronicity, unspecified site Start: 11-01-2023 End: 11-02-2023 Refill Stiven Omalley MA [facility] Comment on above: Diabetic polyneuropa thy associated with type 2 diabetes mellitus ([facility] [place] Start: 10-04-2023 ambulatory Facility:[facility] Start: 10-03-2023 End: 10-03-2023 Bamboo flowsheet Sonam Princek AUDITING CODER Work Phone: [facility] Start: 10-03-2023 End: 10-03-2023 Bamboo flowsheet Sonam Mansfieldzpatrick AUDITING CODER Work Phone: [facility] Start: 10-03-2023 End: 10-03-2023 ambulatory SONAM MANSFIELDZPATRICK Not Available Start: 10-03-2023 End: 10-03-2023 Office outpatient visit 25 minutes Sonam Drake AUDITING CODER Work Phone: [facility] Comment on [...] incontinence; Snoring Start: 04-30-2023 End: 04-30-2023 ambulatory [facility] Work Phone: Start: 04-30-2023 End: 04-30-2023 Patient encounter procedure [facility] Work Phone: Start: 03-21-2023 Orders Only Shaikh Maricel HOLLIS Work Phone: [facility] Comment on above: Diabetic polyneuropa thy associated with type 2 diabetes mellitus (CMS/HCC) (Primary Dx) Start: 03-19-2023 End: 03-19-2023 ambulatory Ana Luisa Curtis Other [facility] Other Start: 03-19-2023 Office outpatient vi sit 15 minutes Ana Luisa Curtis [facility] Start: 01-23-2023 End: 01-23-2023 ambulatory Ana Luisa Curtis Other [facility] Other Start: 01-23-2023 Office outpatient vi sit 15 minutes Ana Luisa Curtis [facility] Start: 01-18-2023 End: 01-18-2023 ambulatory Elle Hendricks Other [facility] Other Start: 01-18-2023 Office outpatient vi sit 15 minutes Elle Hendricks [facility] Start: 09-19-2022 End: 09-19-2022 ambulatory Ana Luisa Curtis Other [facility] Other Start: 09-19-2022 Telephone encounter [facility] Start: 07-12-[address] JONATHAN EDWARDS Facili ty:[facility] Start: 06-07-2022 End: 06-08-[address] JONATHAN EDWARDS Facility:[facility] Start: 05-02-2022 End: 05-02-2022 ambulatory Ana Luisa Curtis Other [facility] Other Start: 05-02-2022 Office outpatient ne w 30 minutes Ana Luisa Curtis [facility] Start: 04-12-2022 End: 04-13-2022 [...] Start: 08-30-2021 End: 08-31-2021 ambulatory RADHA BARCLAY [facility] Start: 08-30-2021 End: 08-30-2021 Subsequent hospital visit by physician Sr Edwards DO Work Phone: [facility] Comment on above: Routine cervical sme ar Start: 08-16-2021 Encounter for genera l adult medical examination without abnormal findings DR RICARDO HOLM . [facility] Start: 08-09-2021 End: 08-10-2021 Encounter for [...] End: 06-21-[address] RICARDO HOLM . Facility: Procedures Date Procedure Procedure Detail Performing Clinician Start: 08-20-2024 Hemoglobin glycosyla anne a1c Ameena Sheffieldz AUDITING CODER Work Phone: Start: 07-09-2024 ALL BASIC METABOLIC PANEL Ameena Davisdeidreshahram AUDITING CODER Work Phone: Start: 05-28-2024 Plain radiography of pelvis Start: 05-28-2024 X-ray of right knee, four views Start: 05-21-2024 Radiologic examinati on knee 3 views Ameena Davisjanes AUDITING CODER Work Phone: Start: 05-21-2024 ALL CBC WITH AUTO DIFF Ameena Ryanholz AUDITING CODER Work Phone: Start: 05-19-2024 Hemoglobin glycosyla anne a1c Ameena Davisholz AUDITING CODER Work Phone: Start: 03-30-2024 Hemoglobin glycosyla anne a1c Sonam Drake AUDITING CODER Work Phone: Start: 03-18-2024 MM TOMOSYNTHESIS SCR EENING BI Generic External Data Provider Start: 03-18-2024 Mammography Generic Pr ovider Start: 12-31-2023 ALL CBC WITH AUTO DIFF Sonam Drake AUDITING CODER Work Phone: Start: 03-20-2023 Mammography Shaikh Marie calero MD Work Phone: Start: 08-30-2021 Microscopic observat ion [Identifier] in Cervix by Cyto stain Sr House DO Work Phone: Plan of Treatment Date Care Activity Detail Author Start: 03-28-2026 Screening for malignant neoplasm of colon [facility] Start: 03-08-2026 Screening for malignant neoplasm of colon [facility] Start: 05-21-2025 Urine screening for protein Diabetes: Urine Protein Screening [facility] Start: 04-06-2025 End: 04-06-2025 Patient encounter procedure 04/06/2025 1:15 PM EST Office Visit [facility] [address] [place] [address] Alicia Monroy MD [address] [place] [address] [facility] Start: 03-30-2025 End: 03-30-2025 Patient encounter procedure [facility] Start: 03-18-2025 Screening for malignant neoplasm of breast Mammogram [facility] Start: 02-20-2025 Hemoglobin A1c measurement Diabetes: Hemoglobin A1C [facility] Start: 12-30-2024 Urine screening for protein Diabetes: Urine Protein Screening [facility] Start: 11-23-2024 End: 11-23-2024 Patient encounter procedure 11/23/2024 1:00 PM EDT Office Visit [facility] [address] [place] [id number] Ameena Vera NP [address] [place] [address] [facility] Start: 11-18-2024 Hemoglobin A1c measurement Diabetes: Hemoglobin A1C [facility] Start: 11-02-2024 End: 11-02-2024 Patient encounter procedure 11/02/2024 10:10 AM EDT Office Visit [facility] [address] [place] [address] Kasi Bennett MD [address] [place] [address] [facility] Start: 10-26-2024 End: 10-26-2024 Patient encounter procedure 10/26/2024 1:20 PM EDT Office Visit [facility] [address] [place] [id number] Za Wilkerson NP [address] [place], [place] [facility] Start: 10-19-2024 End: 10-19-2024 Patient encounter procedure 10/19/2024 11:30 AM EDT Office Visit [facility] [address] [place] [address] Ameena Vera, RONALDO [address] [place] [phone] [facility] Start: 10-12-2024 Influenza vaccination [facility] Start: 09-30-2024 End: 09-30-[address] [facility] Start: 09-27-2024 Hemoglobin A1c measurement Diabetes: Hemoglobin A1C [facility] Start: 08-30-2024 Screening for malignant neoplasm of cervix [facility] Start: 08-20-2024 End: 08-20-2024 Patient encounter procedure 08/20/2024 10:30 AM EDT Office Visit [facility] [address] [place] [address] Ameena Vera NP [address] [place] [phone] [facility] Start: 07-29-2024 End: 07-29-2025 25-hydroxyvitamin D3 [Mass/volume] in Serum or Plasma Vitamin D 25 hydroxy Total Lab Routine Low serum parathyroid hormone (PTH) Hypercalcemia Vitamin D deficiency Expected: 07/29/2024 (Approximate), Expires: 07/29/2025 [facility] Comment on above: Expected: 07/29/2024 (Approximate), Expi res: 07/29/2025 Start: 07-29-2024 End: 07-29-2025 Magnesium [Mass/volume] in Serum or Plasma Magnesium Lab Routine Low serum parathyroid hormone (PTH) Hypercalcemia Expected: 07/29/2024 (Approximate), Expires: 07/29/2025 [facility] Work Phone: Comment on above: Expected: 07/29/2024 (Approximate), Expi res: 07/29/2025 Start: 07-29-2024 End: 07-29-2025 Parathyrin.intact and Calcium panel - Serum or Plasma PTH, intact and calcium Lab Routine Low serum parathyroid hormone (PTH) Hypercalcemia Expected: 07/29/2024 (Approximate), Expires: 07/29/2025 [facility] Comment on above: Expected: 07/29/2024 (Approximate), Expi res: 07/29/2025 Start: 07-29-2024 End: 07-29-2024 Patient encounter procedure [facility] Comment on above: Low serum parathyroid hormone (PTH) Start: 07-29-2024 End: 07-29-2025 Renal function panel Renal function panel Lab Routine Low serum parathyroid hormone (PTH) Hypercalcemia Expected: 07/29/2024 (Approximate), Expires: 07/29/2025 [facility] Comment on above: Expected: 07/29/2024 (Approximate), Expi res: 07/29/2025 Start: 07-26-2024 Urine screening for protein Diabetes: Urine Protein Screening [facility] Start: 07-03-2024 End: 06-03-2025 25-hydroxyvitamin D3 [Mass/volume] in Serum or Plasma Vitamin D 25 hydroxy Lab Routine Hypercalcemia Expected: 07/03/2024 (Approximate), Expires: 06/03/2025 [facility] Comment on above: Expected: 07/03/2024 (Approximate), Expi res: 06/03/2025 Start: 07-03-2024 End: 06-03-2025 Basic metabolic 1998 panel - Serum or Plasma Basic metabolic panel Lab Routine Hypercalcemia Low serum parathyroid hormone (PTH) Expected: 07/03/2024 (Approximate), Expires: 06/03/2025 [facility] Comment on above: Expected: 07/03/2024 (Approximate), Expi res: 06/03/2025 Start: 07-03-2024 End: 06-03-2025 Parathyrin.intact [Mass/volume] in Serum or Plasma PTH, intact Lab Routine Low serum parathyroid hormone (PTH) Expected: 07/03/2024 (Approximate), Expires: 06/03/2025 [facility] Work Phone: Comment on above: Expected: 07/03/2024 (Approximate), Expi res: 06/03/2025 Start: 06-25-2024 End: 06-25-2024 Patient encounter procedure [facility] Start: 05-22-2024 End: 05-22-2025 Parathyrin.intact [Mass/volume] in Serum or Plasma PTH, intact Lab Routine Hypercalcemia Expected: 05/22/2024 (Approximate), Expires: 05/22/2025 [facility] Work Phone: Comment on above: Expected: 05/22/2024 (Approximate), Expi res: 05/22/2025 Start: 05-19-2024 End: 05-19-2025 25-hydroxyvitamin D3 [Mass/volume] in Serum or Plasma Vitamin D 25 hydroxy Lab Routine Hypercalcemia Expected: 05/19/2024 (Approximate), Expires: 05/19/2025 [facility] Comment on above: Expected: 05/19/2024 (Approximate), Expi res: 05/19/2025 Start: 05-19-2024 End: 05-19-2025 CBC W Auto Differential panel - Blood CBC and differential Lab Routine JANETT (obstructive sleep apnea) Cigarette nicotine dependence without complication Expected: 05/19/2024 (Approximate), Expires: 05/19/2025 [facility] Comment on above: Expected: 05/19/2024 (Approximate), Expi res: 05/19/2025 Start: 05-19-2024 End: 05-19-2025 Comprehensive metabolic 2000 panel - Serum or Plasma Comprehensive metabolic panel Lab Routine Other hyperlipidemia Bilateral lower extremity edema Type 2 diabetes mellitus with diabetic microalbuminuria, without long-term current use of insulin ([facility] Hypercalcemia Essential hypertension Expected: 05/19/2024 (Approximate), Expires: 05/19/2025 [facility] Comment on above: Expected: 05/19/2024 (Approximate), Expi res: 05/19/2025 Start: 05-19-2024 End: 05-19-2025 Lipid 1996 panel - Serum or Plasma Lipid panel Lab Routine Other hyperlipidemia Expected: 05/19/2024 (Approximate), Expires: 05/19/2025 [facility] Work Phone: Comment on above: Expected: 05/19/2024 (Approximate), Expi res: 05/19/2025 Start: 05-19-2024 End: 05-19-2025 Microalbumin/Creatinine panel in random Urine Microalbumin / creatinine, urine ratio Lab Routine Type 2 diabetes mellitus with diabetic microalbuminuria, without long-term current use of insulin ([facility] Essential hypertension Expected: 05/19/2024 (Approximate), Expires: 05/19/2025 [facility] Comment on above: Expected: 05/19/2024 (Approximate), Expi res: 05/19/2025 Start: 05-19-2024 End: 05-19-2025 Parathyrin.intact [Mass/volume] in Serum or Plasma PTH, intact Lab Routine Hypercalcemia Expected: 05/19/2024 (Approximate), Expires: 05/19/2025 [facility] Comment on above: Expected: 05/19/2024 (Approximate), Expi res: 05/19/2025 Start: 05-19-2024 End: 05-19-2025 Urate [Mass/volume] in Serum or Plasma Uric acid Lab Routine Elevated blood uric acid level Expected: 05/19/2024 (Approximate), Expires: 05/19/2025 [facility] Comment on above: Expected: 05/19/2024 (Approximate), Expi res: 05/19/2025 Start: 05-19-2024 End: 05-19-2025 Urinalysis complete panel - Urine Urinalysis with reflex microscopic (clean catch) Lab Routine Type 2 diabetes mellitus with diabetic microalbuminuria, without long-term current use of insulin ([facility] Cigarette nicotine dependence without complication Essential hypertension Elevated blood uric acid level Expected: 05/19/2024 (Approximate), Expires: 05/19/2025 [facility] Comment on above: Expected: 05/19/2024 (Approximate), Expi res: 05/19/2025 Start: 05-19-2024 End: 05-19-2025 XR Knee - right 3 Views XR knee 3 views right Imaging Routine Acute pain of right knee Expected: 05/19/2024 (Approximate), Expires: 05/19/2025 [facility] Comment on above: Expected: 05/19/2024 (Approximate), Expi res: 05/19/2025 Start: 05-19-2024 End: 05-19-2024 Patient encounter procedure 05/19/2024 11:00 AM EDT Office Visit [facility] [address] [place] [address] Ameena Vera NP [address] [place] [address] [facility] Start: 04-21-2024 End: 04-21-2024 Patient encounter procedure 04/21/2024 1:00 PM EDT Office Visit [facility] [address] [place] [phone] Za Wilkerson NP [address] [place], [place] [facility] Start: 03-30-2024 End: 03-30-2024 Patient encounter procedure 03/30/2024 11:05 AM EST Office Visit [facility] [address] [place] [address] Alicia Monroy MD [address] [place] [address] [facility] Start: 03-26-2024 End: 03-26-2024 Patient encounter procedure 03/26/2024 2:00 PM EST Office Visit [facility] [address] [place] [phone] Sonam Drake NP [address] [place] [phone] [facility] Start: 03-24-2024 End: 03-24-2024 Patient encounter procedure [facility] [place] [address] Start: 03-20-2024 Screening for malignant neoplasm of breast Mammogram [facility] Start: 02-27-2024 End: 02-27-2024 Patient encounter procedure 02/27/2024 11:35 AM EST Office Visit [facility] [address] [place] [address] Alicia Monroy MD [address] [place] [address] [facility] Start: 02-25-2024 End: 02-25-2024 Patient encounter procedure 02/25/2024 3:30 PM EST Office Visit [facility] [address] [place] [address] Sonam Drake NP [address] [place] [address] [facility] Start: 02-21-2024 Medicare Annual Wellness (AWV) Medicare Annual Wellness (AWV) [facility] Start: 02-12-2024 Glaucoma screening Diabetes: Retinopathy Screening [facility] Start: 01-25-2024 Hemoglobin A1c measurement Diabetes: Hemoglobin A1C [facility] Start: 12-31-2023 End: 12-30-2024 Polysomnography [facility] Routine JANETT (obstructive sleep apnea) Expected: 12/31/2023 (Approximate), Expires: 12/30/2024 [facility] Work Phone: Comment on above: Expected: 12/31/2023 (Approximate), Expi res: 12/30/2024 Start: 12-31-2023 End: 12-31-2023 Patient encounter procedure 12/31/2023 10:00 AM EST Office Visit [facility] [address] [place] [phone] Sivan Banda [address] [place] [address] [facility] [address] Start: 12-30-2023 End: 12-29-2024 CBC W Auto Differential panel - Blood CBC and differential Lab Routine Type 2 diabetes mellitus with diabetic microalbuminuria, without long-term current use of insulin ([facility]) Essential hypertension Expected: 12/30/2023 (Approximate), Expires: 12/29/2024 [facility] Comment on above: Expected: 12/30/2023 (Approximate), Expi res: 12/29/2024 Start: 12-30-2023 End: 12-29-2024 Comprehensive metabolic 2000 panel - Serum or Plasma Comprehensive metabolic panel Lab Routine Type 2 diabetes mellitus with diabetic microalbuminuria, without long-term current use of insulin ([facility]) Essential hypertension Expected: 12/30/2023 (Approximate), Expires: 12/29/2024 [facility] Comment on above: Expected: 12/30/2023 (Approximate), Expi res: 12/29/2024 Start: 12-30-2023 End: 12-29-2024 Hemoglobin A1c/Hemoglobin.total in Blood Hemoglobin A1c Lab Routine Type 2 diabetes mellitus with diabetic microalbuminuria, without long-term current use of insulin ([facility]) Expected: 12/30/2023 (Approximate), Expires: 12/29/2024 [facility] Comment on above: Expected: 12/30/2023 (Approximate), Expi res: 12/29/2024 Start: 12-30-2023 End: 12-30-2023 Patient encounter procedure 12/30/2023 10:30 AM EST Office Visit [facility] [address] [place] [phone] Sonam Drake NP [address] [place] [address] [facility] Start: 11-04-2023 End: 11-04-2023 Patient encounter procedure 11/04/2023 2:30 PM EDT Office Visit [facility] [address] [place] [address] Sivan Banda, [address] [place] [address] [facility] [address] Start: 10-13-2023 Influenza vaccination Influenza Vaccine (#1) [facility] Start: 08-11-2023 Influenza vaccination Influenza Vaccine (#1) [facility] Comment on above: Postponed from 10/12/2022 (Patient Refus ed) Start: 05-02-2023 End: 05-02-2023 Patient encounter procedure 05/02/2023 2:00 PM EDT Office Visit [facility] [address] [place] [address] Shaikh Connelly MD [address] [place] [address] [facility] Start: 02-17-2023 Hemoglobin A1c measurement Diabetes: Hemoglobin A1C [facility] Start: 09-04-2022 End: 09-04-2022 Patient encounter procedure 09/04/2022 Office Visit Obstetrics and Gynecology Radha Barclay, [place] [address] [place] [address] [facility] Start: 10-12-2021 Influenza vaccination Flu vaccine (#1) [facility] Start: 10-21-2013 Screening for malignant neoplasm of breast Breast cancer screen [facility] Start: 10-21-2013 Shingles vaccine (1 of 2) Shingles vaccine (1 of 2) [facility] Start: 10-21-2008 Screening for malignant neoplasm of colon [facility] Start: 2003 Lipid panel Lipids [facility] Start: 10-21-1998 Diabetes screen Diabetes screen [facility] Start: 10-21-1993 Screening for malignant neoplasm of cervix [facility] Start: 10-21-1982 DTaP/Tdap/Td vaccine (1 - Tdap) DTaP/Tdap/Td vaccine (1 - Tdap) [facility] Start: 10-21-1982 Urine screening for protein Diabetes: Urine Protein Screening [facility] Start: 10-21-1981 Hepatitis C screening Hepatitis C screen [facility] Start: 10-21-1978 HIV screening HIV screen [facility] Start: 1975 Depression Screen Depression Screen [facility] Start: 04-20-1964 COVID-19 Vaccine (#1) COVID-19 Vaccine (#1) [facility] Start: 1963 Screening for malignant neoplasm of colon [facility] End: 08-30-2021 Cytopathology procedure, preparation of smear, genital source PAP SMEAR Lab Routine Routine cervical smear 1 Occurrences starting 08/30/2021 until 08/30/2021 [facility] [employer] [facility] Work Phone: Comment on above: 1 Occurrences starting 08/30/2021 until 08/30/2021 Microalbumin/Creatin ine panel in random Urine Microalbumin / creatinine urine ratio Lab Routine Type 2 diabetes mellitus with diabetic microalbuminuria, without long-term current use of insulin ([facility]) Essential hypertension Ordered: 12/30/2023 [facility] Work Phone: Comment on above: Ordered: 12/30/2023 Immunizations Immunization Date Immunization Notes Care Provider Tima garcia 01-14-2017 influenza, injectabl e, quadrivalent, preservative [facility] 01-14-2017 influenza virus vaccine, unspecified formulation Sonam Drake NP Work Phone: [facility] Payers Date Payer Category Payer Self-pay [id number] 2022 Private Health Insurance [id number] 2022 Unknown [id number] [id number] 2022 Unknown 2022 2012 Medicare [id number]. [id number] 1963 Unknown [id number] 2.16.8 40.1.064860.3.579.2.173 1963 Unknown [id number] 2.16.84 0.1.756819.3.579.2.593 1963 Unknown [id number] 2.16.84 0.1.481335.3.579.2.593 1963 Unknown [id number] 2.16.84 0.1.910552.3.579.2.593 1963 Unknown [id number] 2.16.84 0.1.518999.3.579.2.593 1963 Unknown [id number] 2.16.84 0.1.036500.3.579.2.593 1963 Unknown [id number] 2.16.84 0.1.644143.3.579.2.593 1963 Unknown [id number] 2.16.84 0.1.234706.3.579.2.593 1963 Unknown [id number] 2.16.84 0.1.206908.3.579.2.593 1963 Unknown [id number] 2.16.84 0.1.471922.3.579.2.593 1963 Unknown [id number] 2.16.84 0.1.681798.3.579.2.593 1963 Unknown [id number] 2.16.84 0.1.071305.3.579.2.593 1963 Unknown [id number] 2.16.84 0.1.813834.3.579.2.593 1963 Unknown [id number] 2.16.84 0.1.775039.3.579.2.593 1963 Unknown [id number] 2.16.84 0.1.626021.3.579.2.593 1963 Unknown [id number] 2.16.84 0.1.892439.3.579.2.593 1963 Unknown [id number] 2.16.84 0.1.482986.3.579.2.593 1963 Unknown [id number] 2.16. 840.1.530891.3.579.2.196 1963 Unknown [id number] 2.16.8 40.1.564996.3.579.2.1259 1963 Unknown [id number] 2.16.8 40.1.617422.3.579.2.1258 1963 Unknown [id number] 2.16.84 0.1.979725.3.579.2.1258 1963 Unknown [id number] 2.16.84 0.1.638290.3.579.2.1258 1963 Unknown [id number] 2.16.84 0.1.775011.3.579.2.1258 1963 Unknown [id number] 2.16.84 0.1.731952.3.579.2.1258 1963 Unknown [id number] 2.16.84 0.1.083061.3.579.2.1258 1963 Unknown [id number] 2.16.84 0.1.447999.3.579.2.1258 1963 Unknown [id number] 2.16.84 0.1.402707.3.579.2.1258 1963 Unknown [id number] 2.16.84 0.1.746741.3.579.2.1259 1959 Medicare [id number] 1.2.840.569490.1.13.239.2.7.3.912581.315 1959 Unknown [id number] 1.2.840.000245.1.13.239.2.7.3.499061.315 1959 Unknown [id number] 2.16.8 40.1.324509.19 Medicare Medicare [id number] Unknown [id number] 2.16.8 40.1.549220.3.579.2.531 Social History Date Type Detail Facility Start: 08-30-2021 End: 04-21-2024 Tobacco smoking status NVIS Smokes tobacco daily [facility] [employer] Work Phone: History of tobacco use Cigarette Smoker [employer] Phone: Start: 08-30-2021 End: 04-21-2024 Tobacco use and exposure Smokeless tobacco non-user [employer] Phone: Start: 08-30-2021 Alcohol intake Current drinke r of alcohol (finding) [employer] Phone: Start: 08-30-2021 History SDOH Alcohol Comment occasional [employer] Phone: Start: 1965 Sex Assigned At Not on file [employer] Phone: Start: 08-20-2021 End: 08-30-2021 Exposure to SARS-CoV-2 (event) Not sure [employer] Start: 02-25-2023 End: 10-02-2023 Sex Assigned At [facility] Start: 01-29-2023 End: 05-20-2024 [facility] History of tobacco use Current smoker [facility] Start: 01-29-2023 End: 10-02-2023 Cigarettes smoked current (pack per day) - Reported 0.5 [facility] Start: 02-25-2023 End: 08-20-2024 Alcohol intake Lifetime non-drinker (finding) [facility] Start: 1965 Sex Assigned At Female F [facility] History of tobacco use Passive [...] [facility] Start: 05-29-2024 Sex Female (finding) [facility] Medical Equipment Procedure Code Equipment Code Equipment Origin al Text Equipment Identifier Dates [id number] Start: 06-08-2021 End: 04-21-2024 Clinical Notes 06-20-2021 to 08-20-2024 Ameena Vera NP - 08/20/2024 11:22 AM EDJaye Vera NP - 08/20/2024 10:30 AM EDTHUMBARGER, REMY - 08/20/2024 10:30 AM Brady Vera NP [...] 6.3%, 94% TIR , 4% high 30 plp444, 6.3%m 93% TIR, and 5% high, 1 [...] MORE THAN 3 TABLETS DAILY Continuous Glucose Client Support Professional (Dexcom G7 Client Support Professional) device 1 each, Does not apply, Continuous [...] microalbuminuria, without long-term current use of insulin ([facility]) - Primary Check blood sugars daily, notify [...] of the risks of continued smoking: stroke, [place], all forms of cancer, lung disease, and [...] of the risks of continued smoking: stroke, [place], all forms of cancer, lung disease, and [...] Current meds: none documented in this encounter [facility] 08-20-2024 Telephone encount er Note Please call [facility] [place] for copy of diabetic eye exam [place] [facility] 08-20-2024 Miscellaneous Notes Formattin g of this note might be different from the original. Please call [facility] [place] for copy of diabetic eye exam [place] documented in this encounter [facility] 08-20-2024 Instructions Ameena Vera NP - 08/20/2024 10:30 AM EDT Furosemide every other day 1/2 tablet documented in this encounter [facility] 07-29-2024 History of Presen t [...] MORE THAN 3 TABLETS DAILY Continuous Glucose Client Support Professional (Dexcom G7 Client Support Professional) device 1 each, Does not apply, Continuous [...] months (around 09/28/2024). documented in this encounter [facility] 05-28-2024 Evaluation note Diagnosis Onset Date Resolution Primary osteoarthritis of right knee acute May 28, 2024 12:55pm [facility] Work Phone: 1(819) 397-816104-11-2025 History of Present illness Narrative* Ameena Vera NP - 05/22/2024 7:25 AM EDT par documented in this encounterMoberly [facility] [id number] History of Present illness Narrative* Ameena Vera [...] orthopedic surgeon in the past [place] for that knee however she does not [...] orthopedic surgeon in the past [place] for that knee however she does not [...] MORE THAN 3 TABLETS DAILY Continuous Glucose Client Support Professional (Dexcom G7 Client Support Professional) device 1 each, Does not apply, Continuous [...] microalbuminuria, without long-term current use of insulin ([facility]) Check blood sugars daily, notify if <70 [...] of the risks of continued smoking: stroke, [place], all forms of cancer, lung disease, and [...] of the risks of continued smoking: stroke, [place], all forms of cancer, lung disease, and [...] aura and without status migrainosus, not intractable ([facility]) Current meds: maxalt, depakote * Ameena Vera NP - 05/19/2024 6:51 AM EDTAssociated Problem(s): Type 2 diabetes mellitus with diabetic microalbuminuria, without long-term current use of insulin ([facility]) Check blood sugars daily, notify if <70 [...] that supplies your machine and tubing/filters etc: [facility] Doctor that manages your JANETT: Dr Banda documented in this [facility]04-08-2025 Instructions* Patient Instructions* Ameena Vera NP - 05/19/2024 11:00 AM EDT Fasting labs Get xray knee Referral to Dr Darren Orona documented in this [facility]02-17-2025 Telephone encounter Note* Telephone Encounter - Jolly Castaneda MA - 03/30/2024 11:44 AM EST Pt's sensor fell off, and she needs them refilled please [facility] [id number] Miscellaneous Notes* Telephone Encounter - Jolly Castaneda MA - 03/30/2024 11:44 AM EST Pt's sensor fell off, and she needs them refilled please documented in this [facility]02-17-2025 History of Present illness Narrative* [...] Examined Right arm Examined Patient wearing nail emirati, Denies dark streaks under finger nails, Denies [...] 1 year skin check documented in this encounterMoberly [facility] Medical [id number] History of Present illness Narrative* Sonam Drake, RONALDO - 03/30/2024 10:04 AM ESTAssociated Problem(s): JANETT (obstructive sleep apnea) Saw Neurology- was diagnosed with severe JANETT. Has been wearing CPAP religiously. Feels more well rested when wearing. Continue current regimen as directed by neurology. * Sonam Drake NP - 03/30/2024 9:58 AM ESTAssociated Problem(s): Other hyperlipidemia ([facility]) Crestor 20mg Denies myalgias Continue current regimen. * Sonam Drake NP - 03/30/2024 9:58 AM ESTAssociated Problem(s): Essential hypertension BP consistently under goal in office. Not on any medication regimen. Continue to monitor closely. * Sonam Drake AUDITING CODER - 03/30/2024 9:58 AM ESTAssociated Problem(s): Type 2 diabetes mellitus with diabetic microalbuminuria, without long-term current use of insulin ([facility]) Currently taking Metformin Bid and Ozempic 1mg. [...] microalbuminuria, without long-term current use of insulin ([facility]) - Primary Currently taking Metformin Bid and [...] (Hb A1C) docked device (Completed) Other hyperlipidemia ([facility]) Crestor 20mg Denies myalgias Continue current regimen. [...] complication, without long-term current use of insulin ([facility]) documented in this [facility]02-17-2025 Instructions* Patient Instructions* Sonam Drake [...] carbohydrates, and simple sugars. documented in this [facility]01-21-2025 History of Present illness Narrative* Sonam Drake NP - 03/03/2024 11:35 AM ESTAssociated Problem(s): Upper respiratory infection with cough and congestion Productive cough- yellow phlegm/Sinus congestion/Runny nose/Headaches/Malaise X1 week. Will treat for upper respiratory infection with steroids, Augmentin, Flonase, and tessalon Perles. Advised pt to follow up if symptoms worsen or do not improve within 1 week.. * Sonam Draek NP - 03/03/2024 10:00 AM EST Images [...] microalbuminuria, without long-term current use of insulin ([facility]) Relevant Medications metFORMIN (Glucophage) 500 MG tablet Continuous Glucose Client Support Professional (Dexcom G7 Client Support Professional) device Continuous Glucose Sensor (Dexcom G7 Sensor) [...] (Lyrica) 75 MG capsule documented in this encounterMoberly [facility] Medical [id number] Instructions* Patient Instructions* Sonam Drake NP - [...] 1500 calories per day. documented in this [facility]12-19-2024 Telephone encounter Note* Telephone Encounter - Jolly Castaneda MA - 01/30/2024 10:38 AM EST GIOVANNA:12/30/2023 NOV:03/26/2024 [facility] [id number] Miscellaneous Notes* Telephone Encounter - Jolly Castaneda MA - 01/30/2024 10:38 AM EST GIOVANNA:12/30/2023 NOV:03/26/2024 documented in this [facility]12-03-2024 Telephone encounter Note* Telephone Encounter - Jolly Castaneda MA - 01/14/2024 8:34 AM EST GIOVANNA:12/30/2023 NOV:03/26/2023 [facility] [id number] Miscellaneous Notes* Telephone Encounter - Jolly Castaneda MA - 01/14/2024 8:34 AM EST GIOVANNA:12/30/2023 NOV:03/26/2023 documented in this [facility]11-19-2024 History of Present illness Narrative* Sivan Banda DO - 12/31/2023 10:00 AM EST Images from the original note were not included. No chief complaint on file. Subjective SLEEP CONSULT REFERRAL: Snoring, concern for JANETT, needing sleep study - labs @ [facility]; referral received from Sonam Drake CNP. 58 [...] was counseled on the risks of stroke, [place], and sudden with JANTET, along with the need for compliance with [...] to clinic: 2 months documented in this encounterMoberly [facility] Medical [id number] History of Present illness Narrative* Sonam Drake [...] 12/30/2023 1:18 PM ESTAssociated Problem(s): Other hyperlipidemia ([facility]) Crestor 20mg Denies myalgias Continue current regimen. * Sonam Drake NP - 12/30/2023 1:17 PM ESTAssociated Problem(s): Type 2 diabetes mellitus with diabetic microalbuminuria, without long-term current use of insulin ([facility]) Currently taking Metformin Bid and Ozempic Most [...] ALBUMIN GLOBULIN RATIO 0.8 Resulting Agency H [facility] DMII: Metformin Bid and Ozempic Most recent [...] JANETT. First appointment tomorrow. documented in this [facility]11-18-2024 Instructions* Patient Instructions* Sonam Drake NP - 12/30/2023 10:30 AM EST FASTING labs ordered. Nothing to eat or drink for 12 hours prior to blood draw. Water and black coffee ok. Call if you need anything! documented in this [facility]11-05-2024 Telephone encounter Note* Telephone Encounter - Jolly Castaneda MA - 12/17/2023 3:39 PM EST GIOVANNA:10/03/2023 NOV:12/30/2023 [facility] [id number] Miscellaneous Notes* Telephone Encounter - Jolly Castaneda MA - 12/17/2023 3:39 PM EST GIOVANNA:10/03/2023 NOV:12/30/2023 documented in this [facility]08-22-2024 History of Present illness Narrative* Sonam Drake NP - 10/03/2023 10:57 AM EDTAssociated Problem(s): Snoring Screening for JANTET- Referral sent to [facility] * Sonam Drake NP - 10/03/2023 10:35 [...] 10:33 AM EDTAssociated Problem(s): Lumbar back pain Percocet PRN * Sonam Drake NP - [...] complication, without long-term current use of insulin ([facility]) Relevant Medications semaglutide (Ozempic, 1 MG/DOSE,) 4 MG/3ML solution pen-injector Diabetic polyneuropathy associated with type 2 diabetes mellitus ([facility]) Relevant Medications pregabalin (Lyrica) 75 MG capsule documented in this encounterMoberly Regional Medical [id number] Instructions* Patient Instructions* Sonam Drake NP - [...] if you need anything! documented in this encounterMoberly Regional Medical [id number] Evaluation note* Encounter Date Diagnosis Assessment Notes [...] Left hand pain (ICD- 10 - M79.642) [facility] Other 12-13-2023 Evaluation note* Encounter Date Diagnosis [...] noted. Patient will f/u in 4 weeks. [facility] Other 12-08-2023 Evaluation note* Encounter Date Diagnosis [...] left hand x-ray that was performed at [facility] which revealed degenerative changes in the hand as well as a remote avulsion fracture of the thumb. Patient states her family doctor is treating her for gout in her hand. Jan, History of gout (ICD-10 - Z87.39) Jan, Other Gout material w as printed [facility] Other 08-09-2023 Evaluation note* Encounter Date Diagnosis Assessment Notes Treatment Notes Treatment Clinical Notes Sep, Right wrist pain (ICD-10 - M25.531) [facility] Other 04-27-2023 NoteCONSULTATION CONSULTATION DATE: 06/07/2022 TO: [...] our patients to inform us about any evpz-gfh-[id number] medications or herbal remedies/nutritional supplements/alternative remedies. 2. [...] treatment options with their primary care provider.[id number] Evaluation note * Encounter Date Diagnosis Assessment [...] understanding and is agreeable to treatment plan. [facility] Other 01-26-2023 NoteCONSULTATION PROCEDURE DATE: 03/08/2022 PREOPERATIVE [...] will be followed up in the clinic.[id number] NotePROCEDURE: XR KNEE LT 4V or > [...] authenticated by: PATTIE SALTER Date: 2022-02-16 11:29[facility] [id number] NoteCONSULTATION CONSULTATION DATE: 02/09/2022 HISTORY OF PRESENT [...] office today. Patient agrees with this plan.[id number] NotePROCEDURE: XR WRIST RT MIN 3 V COMPARISON: None. HISTORY: Injury of right wrist FINDINGS: BONES:No acute fracture or dislocation. Corticated bone fragment identified along the first carpometacarpal joint [degenerative in nature SOFT TISSUES:Moderate diffuse soft tissue swelling EFFUSION:None visible. OTHER: Negative. IMPRESSION: Soft tissue swelling, no acute fracture Electronically authenticated by: RYAN GOLDMAN Date: 2021-11-16 18:59[facility] [id number] NoteCONSULTATION CONSULTATION DATE: 11/01/2021 HISTORY OF PRESENT [...] otherwise indicated. Patient agrees with this plan.[facility] [id number] NoteCONSULTATION PROCEDURE DATE: 11/01/2021 PRE AND POSTOPERATIVE [...] will be followed up in the clinic.[facility] [id number] NoteCONSULTATION PROCEDURE DATE: 08/09/2021 PREOPERATIVE DIAGNOSIS: Bilateral [...] be followed up in the clinic. [facility] Signed and Approved by: CRYS PIERCE . 08/10/2021 13:37:00[facility]06-08-2022 NoteCONSULTATION CONSULTATION DATE: 07/19/2021 HISTORY [...] Approved by: CRYS PIERCE . 07/20/2021 10:33:00[facility]05-25-2022 NotePROCEDURE: XR FOOT RT MIN [...] authenticated by: PATTIE SALTER Date: 2021-07-05 11:11[facility]05-10-2022 NoteCONSULTATION CONSULTATION DATE: 06/20/2021 CHIEF [...] to proceed. CC: Jonathan Edwards M.D. [facility] Signed and Approved by: DR RICARDO HOLM . 06/27/2021 10:40:00[facility] Diagnosis Routine cervical smear Screening for malignant neoplasm of the cervix documented in this encounter [facility] Work Phone: evaluation note* Diagnosis Diabetic polyneuropathy associated with type 2 diabetes mellitus (CMS/HCC)- Primary documented in this encounter [facility] HealthcareEvaluation noteNo assessment information availableWestern [facility] Work Phone: Evaluation note* Diagnosis Encounter [...] diabetes mellitus (CMS/HCC) documented in this encounter [facility] HealthcareEvaluation note* Diagnosis Encounter for [...] chronicity, unspecified site documented in this encounter [facility] HealthcareEvaluation note* Diagnosis Encounter for screening mammogram [...] Tobacco use disorder documented in this encounter [facility] HealthcareEvaluation note* Diagnosis Encounter for [...] and stress (male)(female) documented in this encounter [facility] HealthcareEvaluation note* Diagnosis Encounter for screening mammogram for breast cancer- Primary Encounter for screening for malignant neoplasm of colon Type 2 diabetes mellitus without complication, without long-term current use of insulin ([facility]) Upper respiratory tract infection, unspecified type URTI [...] complication, without long-term current use of insulin ([facility]/HCC) Back spasm Other symptoms referable to back [...] of insulin (CMS/HCC) documented in this encounter [facility] HealthcareEvaluation note* Diagnosis Encounter for [...] Other hyperlipidemia (CMS/HCC) documented in this encounter [facility] HealthcareEvaluation note* Diagnosis Encounter for [...] fracture presence (CMS/HCC) documented in this encounter [facility] HealthcareEvaluation note* Diagnosis Encounter for screening mammogram [...] with routine healing, subsequent encounter Other hyperlipidemia ([facility]) Hyperuricemia Other abnormal blood chemistry Osteoporosis, unspecified osteoporosis type, unspecified pathological fracture presence ([facility]) Diabetic polyneuropathy associated with type 2 diabetes mellitus ([facility]) Gastroesophageal reflux disease without esophagitis Esophageal reflux Migraine with aura and without status migrainosus, not intractable ([facility]) Hospital discharge follow-up Other follow-up examination Type 2 diabetes mellitus with diabetic microalbuminuria, without long-term current use of insulin ([facility])- Primary Other hyperlipidemia ([facility]/HCC) Essential hypertension Unspecified essential hypertension Bilateral lower extremity edema Lumbar back pain- Primary Lumbago Hospital discharge follow-up Other follow-up examination Essential hypertension- Primary Unspecified essential hypertension Type 2 diabetes mellitus with diabetic microalbuminuria, without long-term current use of insulin ([facility]) Morbid (severe) obesity due to excess calories (E66.01) Other hyperlipidemia (CMS/HCC) Lumbar back pain Lumbago Type 2 diabetes mellitus without complication, without long-term current use of insulin ([facility]) Diabetic polyneuropathy associated with type 2 diabetes mellitus ([facility]) Mixed urge and stress incontinence Mixed incontinence urge and stress (male)(female) Snoring Other dyspnea and respiratory abnormality Encounter for long-term (current) use of high-risk medication Encounter for long-term (current) use of other medications Type 2 diabetes mellitus with diabetic microalbuminuria, without long-term current use of insulin ([facility])- Primary Essential hypertension Unspecified essential hypertension Other hyperlipidemia (CMS/HCC) Snoring Other dyspnea and respiratory abnormality Mixed urge and stress incontinence Mixed incontinence urge and stress (male)(female) Upper respiratory infection with cough and congestion- Primary Lumbar back pain Lumbago Migraine with aura and without status migrainosus, not intractable ([facility]) Type 2 diabetes mellitus with diabetic microalbuminuria, without long-term current use of insulin (CMS/HCC) Diabetic polyneuropathy associated with type 2 diabetes mellitus (CMS/HCC) Other hyperlipidemia (CMS/HCC) Gastroesophageal reflux disease without esophagitis Esophageal reflux documented in this encounter [facility] HealthcareEvaluation note* Diagnosis Encounter for [...] of insulin (CMS/HCC) documented in this encounter [facility] HealthcareEvaluation note* Diagnosis Encounter for [...] with routine healing, subsequent encounter Other hyperlipidemia ([facility]) Hyperuricemia Other abnormal blood chemistry Osteoporosis, unspecified osteoporosis type, unspecified pathological fracture presence ([facility]) Diabetic polyneuropathy associated with type 2 diabetes mellitus ([facility]/HCC) Gastroesophageal reflux disease without esophagitis Esophageal reflux Migraine with aura and without status migrainosus, not intractable ([facility]) Hospital discharge follow-up Other follow-up examination Type 2 diabetes mellitus with diabetic microalbuminuria, without long-term current use of insulin (CMS/HCC)- Primary Other hyperlipidemia (CMS/HCC) Essential hypertension Unspecified essential hypertension Bilateral lower extremity edema Lumbar back pain- Primary Lumbago Hospital discharge follow-up Other follow-up examination Essential hypertension- Primary Unspecified essential hypertension Type 2 diabetes mellitus with diabetic microalbuminuria, without long-term current use of insulin ([facility]) Morbid (severe) obesity due to excess calories (E66.01) Other hyperlipidemia ([facility]) Lumbar back pain Lumbago Type 2 diabetes mellitus without complication, without long-term current use of insulin ([facility]) Diabetic polyneuropathy associated with type 2 diabetes mellitus ([facility]) Mixed urge and stress incontinence Mixed incontinence urge and stress (male)(female) Snoring Other dyspnea and respiratory abnormality Encounter for long-term (current) use of high-risk medication Encounter for long-term (current) use of other medications Type 2 diabetes mellitus with diabetic microalbuminuria, without long-term current use of insulin ([facility])- Primary Essential hypertension Unspecified essential hypertension Other hyperlipidemia ([facility]) Snoring Other dyspnea and respiratory abnormality Mixed urge and stress incontinence Mixed incontinence urge and stress (male)(female) Upper respiratory infection with cough and congestion- Primary Lumbar back pain Lumbago Migraine with aura and without status migrainosus, not intractable ([facility]) Type 2 diabetes mellitus with diabetic microalbuminuria, without long-term current use of insulin ([facility]) Diabetic polyneuropathy associated with type 2 diabetes mellitus ([facility]/HCC) Other hyperlipidemia ([facility]/HCC) Hidradenitis suppurativa- Primary Hidradenitis Lentigines Melanocytic nevus [...] of insulin (CMS/HCC) documented in this encounter [facility] HealthcareEvaluation note* Diagnosis Encounter for [...] of insulin (CMS/HCC) documented in this encounter [facility] HealthcareEvaluation note* Diagnosis Encounter for [...] with routine healing, subsequent encounter Other hyperlipidemia ([facility]) Hyperuricemia Other abnormal blood chemistry Osteoporosis, unspecified osteoporosis type, unspecified pathological fracture presence ([facility]) Diabetic polyneuropathy associated with type 2 diabetes mellitus ([facility]) Gastroesophageal reflux disease without esophagitis Esophageal reflux Migraine with aura and without status migrainosus, not intractable ([facility]) Hospital discharge follow-up Other follow-up examination Type 2 diabetes mellitus with diabetic microalbuminuria, without long-term current use of insulin ([facility])- Primary Other hyperlipidemia ([facility]) Essential hypertension Unspecified essential hypertension Bilateral lower extremity edema Lumbar back pain- Primary Lumbago Hospital discharge follow-up Other follow-up examination Essential hypertension- Primary Unspecified essential hypertension Type 2 diabetes mellitus with diabetic microalbuminuria, without long-term current use of insulin ([facility]) Morbid (severe) obesity due to excess calories (E66.01) Other hyperlipidemia (CMS/HCC) Lumbar back pain Lumbago Type 2 diabetes mellitus without complication, without long-term current use of insulin ([facility]) Diabetic polyneuropathy associated with type 2 diabetes mellitus ([facility]) Mixed urge and stress incontinence Mixed incontinence urge and stress (male)(female) Snoring Other dyspnea and respiratory abnormality Encounter for long-term (current) use of high-risk medication Encounter for long-term (current) use of other medications Type 2 diabetes mellitus with diabetic microalbuminuria, without long-term current use of insulin ([facility])- Primary Essential hypertension Unspecified essential hypertension Other hyperlipidemia (CMS/HCC) Snoring Other dyspnea and respiratory abnormality Mixed urge and stress incontinence Mixed incontinence urge and stress (male)(female) Upper respiratory infection with cough and congestion- Primary Lumbar back pain Lumbago Migraine with aura and without status migrainosus, not intractable ([facility]) Type 2 diabetes mellitus with diabetic microalbuminuria, without long-term current use of insulin ([facility]) Diabetic polyneuropathy associated with type 2 diabetes mellitus ([facility]) Other hyperlipidemia ([facility]) Type 2 diabetes mellitus with diabetic microalbuminuria, without long-term current use of insulin (CMS/HCC)- Primary Essential hypertension Unspecified essential hypertension Other hyperlipidemia (CMS/HCC) JANETT (obstructive sleep apnea) Obstructive sleep apnea (adult) (pediatric) Type 2 diabetes mellitus without complication, without long-term current use of insulin (CMS/HCC) Bilateral lower extremity edema- Primary documented in this encounter [facility] HealthcareEvaluation note* Diagnosis Encounter for [...] diabetes mellitus (CMS/HCC) documented in this encounter [facility] HealthcareEvaluation note* Diagnosis Encounter for [...] unspecified osteoporosis type, unspecified pathological fracture presence ([facility]) Diabetic polyneuropathy associated with type 2 diabetes mellitus ([facility]) Gastroesophageal reflux disease without esophagitis Esophageal reflux Migraine with aura and without status migrainosus, not intractable ([facility]) Hospital discharge follow-up Other follow-up examination Type 2 diabetes mellitus with diabetic microalbuminuria, without long-term current use of insulin ([facility])- Primary Other hyperlipidemia Essential hypertension Unspecified essential hypertension Bilateral lower extremity edema Lumbar back pain- Primary Lumbago Hospital discharge follow-up Other follow-up examination Essential hypertension- Primary Unspecified essential hypertension Type 2 diabetes mellitus with diabetic microalbuminuria, without long-term current use of insulin ([facility]) Morbid (severe) obesity due to excess calories (E66.01) Other hyperlipidemia Lumbar back pain Lumbago Type 2 diabetes mellitus without complication, without long-term current use of insulin Diabetic polyneuropathy associated with type 2 diabetes mellitus ([facility]) Mixed urge and stress incontinence Mixed incontinence urge and stress (male)(female) Snoring Other dyspnea and respiratory abnormality Encounter for long-term (current) use of high-risk medication Encounter for long-term (current) use of other medications Type 2 diabetes mellitus with diabetic microalbuminuria, without long-term current use of insulin ([facility])- Primary Essential hypertension Unspecified essential hypertension Other hyperlipidemia Snoring Other dyspnea and respiratory abnormality Mixed urge and stress incontinence Mixed incontinence urge and stress (male)(female) Type 2 diabetes mellitus with diabetic microalbuminuria, without long-term current use of insulin ([facility])- Primary Essential hypertension Unspecified essential hypertension Other hyperlipidemia JANETT (obstructive sleep apnea) Obstructive sleep apnea (adult) (pediatric) Type 2 diabetes mellitus without complication, without long-term current use of insulin Type 2 diabetes mellitus with diabetic microalbuminuria, without long-term current use of insulin ([facility])- Primary Morbid (severe) obesity due to excess calories ([facility]) Other hyperlipidemia Body mass index (BMI) 39.0-39.9, [...] (CMS/HCC) Hypercalcemia- Primary documented in this encounter [facility] HealthcareEvaluation note* Diagnosis Encounter for [...] microalbuminuria, without long-term current use of insulin (CMS/[facility])- Primary Morbid (severe) obesity due to excess [...] diabetes mellitus (CMS/HCC) documented in this encounter [facility] HealthcareEvaluation note* Diagnosis Encounter for [...] unspecified osteoporosis type, unspecified pathological fracture presence ([facility]) Diabetic polyneuropathy associated with type 2 diabetes mellitus ([facility]) Gastroesophageal reflux disease without esophagitis Esophageal reflux Migraine with aura and without status migrainosus, not intractable ([facility]) Hospital discharge follow-up Other follow-up examination Type 2 diabetes mellitus with diabetic microalbuminuria, without long-term current use of insulin ([facility])- Primary Other hyperlipidemia Essential hypertension Unspecified essential hypertension Bilateral lower extremity edema Lumbar back pain- Primary Lumbago Hospital discharge follow-up Other follow-up examination Essential hypertension- Primary Unspecified essential hypertension Type 2 diabetes mellitus with diabetic microalbuminuria, without long-term current use of insulin ([facility]) Morbid (severe) obesity due to excess calories (E66.01) Other hyperlipidemia Lumbar back pain Lumbago Type 2 diabetes mellitus without complication, without long-term current use of insulin Diabetic polyneuropathy associated with type 2 diabetes mellitus ([facility]) Mixed urge and stress incontinence Mixed incontinence urge and stress (male)(female) Snoring Other dyspnea and respiratory abnormality Encounter for long-term (current) use of high-risk medication Encounter for long-term (current) use of other medications Type 2 diabetes mellitus with diabetic microalbuminuria, without long-term current use of insulin ([facility])- Primary Essential hypertension Unspecified essential hypertension Other hyperlipidemia Snoring Other dyspnea and respiratory abnormality Mixed urge and stress incontinence Mixed incontinence urge and stress (male)(female) Type 2 diabetes mellitus with diabetic microalbuminuria, without long-term current use of insulin ([facility])- Primary Essential hypertension Unspecified essential hypertension Other hyperlipidemia JANETT (obstructive sleep apnea) Obstructive sleep apnea (adult) (pediatric) Type 2 diabetes mellitus without complication, without long-term current use of insulin Type 2 diabetes mellitus with diabetic microalbuminuria, without long-term current use of insulin ([facility])- Primary Morbid (severe) obesity due to excess [...] parathyroid hormone (PTH) documented in this encounter [facility] HealthcareEvaluation note* Diagnosis Encounter for [...] other sinus- Primary documented in this encounter [facility] HealthcareEvaluation note* Diagnosis Encounter for screening mammogram [...] unspecified osteoporosis type, unspecified pathological fracture presence ([facility]) Diabetic polyneuropathy associated with type 2 diabetes mellitus ([facility]) Gastroesophageal reflux disease without esophagitis Esophageal reflux Migraine with aura and without status migrainosus, not intractable ([facility]) Hospital discharge follow-up Other follow-up examination Type 2 diabetes mellitus with diabetic microalbuminuria, without long-term current use of insulin ([facility])- Primary Other hyperlipidemia Essential hypertension Unspecified essential hypertension Bilateral lower extremity edema Lumbar back pain- Primary Lumbago Hospital discharge follow-up Other follow-up examination Essential hypertension- Primary Unspecified essential hypertension Type 2 diabetes mellitus with diabetic microalbuminuria, without long-term current use of insulin ([facility]) Morbid (severe) obesity due to excess calories (E66.01) Other hyperlipidemia Lumbar back pain Lumbago Type 2 diabetes mellitus without complication, without long-term current use of insulin Diabetic polyneuropathy associated with type 2 diabetes mellitus ([facility]) Mixed urge and stress incontinence Mixed incontinence urge and stress (male)(female) Snoring Other dyspnea and respiratory abnormality Encounter for long-term (current) use of high-risk medication Encounter for long-term (current) use of other medications Type 2 diabetes mellitus with diabetic microalbuminuria, without long-term current use of insulin ([facility] Primary Essential hypertension Unspecified essential hypertension Other hyperlipidemia Snoring Other dyspnea and respiratory abnormality Mixed urge and stress incontinence Mixed incontinence urge and stress (male)(female) Type 2 diabetes mellitus with diabetic microalbuminuria, without long-term current use of insulin ([facility] Primary Essential hypertension Unspecified essential hypertension Other [...] diabetes mellitus (CMS/HCC) documented in this encounter [facility] HealthcareEvaluation note* Diagnosis Encounter for [...] lower extremity edema Lumbar [facility] pain- [facility] [place] discharge follow-up Other follow-up examination Essential [...] associated with type 2 diabetes mellitus (CMS/HCC) Type 2 diabetes mellitus with diabetic microalbuminuria, without long-term current use of insulin (CMS/HCC) documented in this encounter [facility] HealthcareEvaluation note* Diagnosis Encounter for screening mammogram for breast cancer- Primary Encounter for screening for malignant neoplasm of colon Type 2 diabetes mellitus without complication, without long-term current use of insulin Upper respiratory tract infection, unspecified type URTI (acute upper respiratory infection) Acute upper respiratory infections of unspecified site Migraine with aura and without status migrainosus, not intractable ([facility]/HCC)- Primary Type 2 diabetes mellitus without complication, [...] microalbuminuria, without long-term current use of insulin ([facility]/HCC)- Primary Other hyperlipidemia Essential hypertension Unspecified essential hypertension Bilateral lower extremity edema Lumbar back pain- Primary L[facility]ago Hospital discharge follow-up Other follow-up examination Essential hypertension- Primary Unspecified essential hypertension Type 2 diabetes mellitus with diabetic microalbuminuria, without long-term current use of insulin ([facility]/HCC) Morbid (severe) obesity due to excess calories [...] microalbuminuria, without long-term current use of insulin ([facility]/HCC)- Primary Essential hypertension Unspecified essential hypertension Other [...] hormone (PTH)- Primary documented in this encounter [facility] HealthcareEvaluation note* Diagnosis Encounter for [...] microalbuminuria, without long-term current use of insulin ([facility])- Primary Essential hypertension Unspecified essential hypertension Other [...] Morbid (severe) obesity due to excess calories ([facility]) Other hyperlipidemia Body mass index (BMI) 39.0-39.9, [...] associated with type 2 diabetes mellitus (HCC) Lumbar back pain Lumbago documented in this encounter [facility] HealthcareEvaluation note* Diagnosis Encounter for [...] polyneuropathy associated with type 2 diabetes mellitus ([facility]) Gastroesophageal reflux disease without esophagitis Esophageal reflux Migraine with aura and without status migrainosus, not intractable Hospital discharge follow-up Other follow-up examination Type 2 diabetes mellitus with diabetic microalbuminuria, without long-term current use of insulin ([facility])- Primary Other hyperlipidemia Essential hypertension Unspecified essential hypertension Bilateral lower extremity edema Lumbar back pain- Primary [place] Hospital discharge follow-up Other follow-up examination Essential hypertension- Primary Unspecified essential hypertension Type 2 diabetes mellitus with diabetic microalbuminuria, without long-term current use of insulin ([facility]) Morbid (severe) obesity due to excess calories [...] microalbuminuria, without long-term current use of insulin ([facility])- Primary Essential hypertension Unspecified essential hypertension Other [...] Morbid (severe) obesity due to excess calories ([facility]) Other hyperlipidemia Body mass index (BMI) 39.0-39.9, [...] Vitamin D deficiency documented in this encounter [facility] HealthcareEvaluation note* Diagnosis Encounter for [...] microalbuminuria, without long-term current use of insulin ([facility])- Primary Essential hypertension Unspecified essential hypertension Other hyperlipidemia Snoring Other dyspnea and respiratory abnormality Mixed urge and stress incontinence Mixed incontinence urge and stress (male)(female) Type 2 diabetes mellitus with diabetic microalbuminuria, without long-term current use of insulin ([facility])- Primary Essential hypertension Unspecified essential hypertension Other hyperlipidemia JANETT (obstructive sleep apnea) Obstructive sleep apnea (adult) (pediatric) Type 2 diabetes mellitus without complication, without long-term current use of insulin ([facility]) Type 2 diabetes mellitus with diabetic microalbuminuria, without long-term current use of insulin ([facility])- Primary Morbid (severe) obesity due to excess calories ([facility]) Other hyperlipidemia Body mass index (BMI) 39.0-39.9, [...] associated with type 2 diabetes mellitus (HCC) Lumbar back pain Lumbago documented in this encounter [facility] HealthcareEvaluation note* Diagnosis Encounter for screening mammogram for breast cancer- Primary Encounter for screening for malignant neoplasm of colon Type 2 diabetes mellitus without complication, without long-term current use of insulin ([facility]) Upper respiratory tract infection, unspecified type URTI (acute upper respiratory infection) Acute upper respiratory infections of unspecified site Migraine with aura and without status migrainosus, not intractable- Primary Type 2 diabetes mellitus without complication, without long-term current use of insulin ([facility]) Morbid (severe) obesity due to excess calories [...] microalbuminuria, without long-term current use of insulin ([facility])- Primary Other hyperlipidemia Essential hypertension Unspecified essential hypertension Bilateral lower extremity edema Lumbar back pain- Primary [place] Hospital discharge follow-up Other follow-up examination Essential hypertension- Primary Unspecified essential hypertension Type 2 diabetes mellitus with diabetic microalbuminuria, without long-term current use of insulin ([facility]) Morbid (severe) obesity due to excess calories (E66.01) Other hyperlipidemia Lumbar back pain Lumbago Type 2 diabetes mellitus without complication, without long-term current use of insulin ([facility]) Diabetic polyneuropathy associated with type 2 diabetes mellitus ([facility]) Mixed urge and stress incontinence Mixed incontinence urge and stress (male)(female) Snoring Other dyspnea and respiratory abnormality Encounter for long-term (current) use of high-risk medication Encounter for long-term (current) use of other medications Type 2 diabetes mellitus with diabetic microalbuminuria, without long-term current use of insulin ([facility])- Primary Essential hypertension Unspecified essential hypertension Other hyperlipidemia Snoring Other dyspnea and respiratory abnormality Mixed urge and stress incontinence Mixed incontinence urge and stress (male)(female) Type 2 diabetes mellitus with diabetic microalbuminuria, without long-term current use of insulin ([facility])- Primary Essential hypertension Unspecified essential hypertension Other hyperlipidemia JANETT (obstructive sleep apnea) Obstructive sleep apnea (adult) (pediatric) Type 2 diabetes mellitus without complication, without long-term current use of insulin (HCC) Type 2 diabetes mellitus with diabetic microalbuminuria, without long-term current use of insulin (HCC)- Primary Morbid (severe) obesity due to excess calories ([facility]) Other hyperlipidemia Body mass index (BMI) 39.0-39.9, [...] unspecified cause- Primary documented in this encounter [facility] HealthcareEvaluation note* Diagnosis Encounter for screening mammogram for breast cancer- Primary Encounter for screening for malignant neoplasm of colon Type 2 diabetes mellitus without complication, without long-term current use of insulin ([facility]) Upper respiratory tract infection, unspecified type URTI [...] complication, without long-term current use of insulin ([facility]) Back spasm Other symptoms referable to back [...] microalbuminuria, without long-term current use of insulin ([facility])- Primary Essential hypertension Unspecified essential hypertension Other hyperlipidemia Snoring Other dyspnea and respiratory abnormality Mixed urge and stress incontinence Mixed incontinence urge and stress (male)(female) Type 2 diabetes mellitus with diabetic microalbuminuria, without long-term current use of insulin ([facility])- Primary Essential hypertension Unspecified essential hypertension Other hyperlipidemia JANETT (obstructive sleep apnea) Obstructive sleep apnea (adult) (pediatric) Type 2 diabetes mellitus without complication, without long-term current use of insulin ([facility]) Type 2 diabetes mellitus with diabetic microalbuminuria, without long-term current use of insulin ([facility])- Primary Morbid (severe) obesity due to excess calories ([facility]) Other hyperlipidemia Body mass index (BMI) 39.0-39.9, [...] microalbuminuria, without long-term current use of insulin ([facility]) documented in this encounter [facility] HealthcareEvaluation note* Diagnosis Encounter for [...] complication, without long-term current use of insulin ([facility]) Morbid (severe) obesity due to excess calories [...] microalbuminuria, without long-term current use of insulin ([facility])- Primary Other hyperlipidemia Essential hypertension Unspecified essential hypertension Bilateral lower extremity edema Lumbar back pain- Primary [place] Hospital discharge follow-up Other follow-up examination Essential hypertension- Primary Unspecified essential hypertension Type 2 diabetes mellitus with diabetic microalbuminuria, without long-term current use of insulin ([facility]) Morbid (severe) obesity due to excess calories (E66.01) Other hyperlipidemia Lumbar back pain Lumbago Type 2 diabetes mellitus without complication, without long-term current use of insulin ([facility]) Diabetic polyneuropathy associated with type 2 diabetes mellitus ([facility]) Mixed urge and stress incontinence Mixed incontinence urge and stress (male)(female) Snoring Other dyspnea and respiratory abnormality Encounter for long-term (current) use of high-risk medication Encounter for long-term (current) use of other medications Type 2 diabetes mellitus with diabetic microalbuminuria, without long-term current use of insulin ([facility])- Primary Essential hypertension Unspecified essential hypertension Other hyperlipidemia Snoring Other dyspnea and respiratory abnormality Mixed urge and stress incontinence Mixed incontinence urge and stress (male)(female) Type 2 diabetes mellitus with diabetic microalbuminuria, without long-term current use of insulin ([facility])- Primary Essential hypertension Unspecified essential hypertension Other hyperlipidemia JANETT (obstructive sleep apnea) Obstructive sleep apnea (adult) (pediatric) Type 2 diabetes mellitus without complication, without long-term current use of insulin (HCC) Type 2 diabetes mellitus with diabetic microalbuminuria, without long-term current use of insulin (HCC)- Primary Morbid (severe) obesity due to excess calories ([facility]) Other hyperlipidemia Body mass index (BMI) 39.0-39.9, [...] microalbuminuria, without long-term current use of insulin ([facility])- Primary Essential hypertension Unspecified essential hypertension Morbid (severe) obesity due to excess calories (E66.01) Cigarette nicotine dependence without complication Chronic gout of multiple sites, unspecified cause Gastroesophageal reflux disease without esophagitis Esophageal reflux Bilateral lower extremity edema documented in this encounter [facility] HealthcareEvaluation note* Diagnosis Encounter for screening mammogram for breast cancer- Primary Encounter for screening for malignant neoplasm of colon Type 2 diabetes mellitus without complication, without long-term current use of insulin ([facility]) Upper respiratory tract infection, unspecified type URTI (acute upper respiratory infection) Acute upper respiratory infections of unspecified site Migraine with aura and without status migrainosus, not intractable- Primary Type 2 diabetes mellitus without complication, without long-term current use of insulin ([facility]) Morbid (severe) obesity due to excess calories (E66.01) Body mass index [BMI] 40.0-44.9, adult (Z68.41) Essential hypertension Unspecified essential hypertension Essential hypertension- Primary Unspecified essential hypertension Type 2 diabetes mellitus without complication, without long-term current use of insulin ([facility]) Back spasm Other symptoms referable to back [...] microalbuminuria, without long-term current use of insulin ([facility])- Primary Other hyperlipidemia Essential hypertension Unspecified essential hypertension Bilateral lower extremity edema Lumbar back pain- Primary [place] Hospital discharge follow-up Other follow-up examination Essential hypertension- Primary Unspecified essential hypertension Type 2 diabetes mellitus with diabetic microalbuminuria, without long-term current use of insulin ([facility]) Morbid (severe) obesity due to excess calories (E66.01) Other hyperlipidemia Lumbar back pain Lumbago Type 2 diabetes mellitus without complication, without long-term current use of insulin ([facility]) Diabetic polyneuropathy associated with type 2 diabetes mellitus ([facility]) Mixed urge and stress incontinence Mixed incontinence urge and stress (male)(female) Snoring Other dyspnea and respiratory abnormality Encounter for long-term (current) use of high-risk medication Encounter for long-term (current) use of other medications Type 2 diabetes mellitus with diabetic microalbuminuria, without long-term current use of insulin ([facility])- Primary Essential hypertension Unspecified essential hypertension Other hyperlipidemia Snoring Other dyspnea and respiratory abnormality Mixed urge and stress incontinence Mixed incontinence urge and stress (male)(female) Type 2 diabetes mellitus with diabetic microalbuminuria, without long-term current use of insulin ([facility])- Primary Essential hypertension Unspecified essential hypertension Other hyperlipidemia JANETT (obstructive sleep apnea) Obstructive sleep apnea (adult) (pediatric) Type 2 diabetes mellitus without complication, without long-term current use of insulin ([facility]) Type 2 diabetes mellitus with diabetic microalbuminuria, without long-term current use of insulin ([facility])- Primary Morbid (severe) obesity due to excess calories ([facility]) Other hyperlipidemia Body mass index (BMI) 39.0-39.9, [...] polyneuropathy associated with type 2 diabetes mellitus ([facility]) Type 2 diabetes mellitus with diabetic microalbuminuria, without long-term current use of insulin ([facility])- Primary Essential hypertension Unspecified essential hypertension Morbid [...] pathological fracture presence documented in this encounter [facility] HealthcareEvaluation note* Diagnosis Encounter for [...] microalbuminuria, without long-term current use of insulin ([facility])- Primary Essential hypertension Unspecified essential hypertension Other hyperlipidemia Snoring Other dyspnea and respiratory abnormality Mixed urge and stress incontinence Mixed incontinence urge and stress (male)(female) Type 2 diabetes mellitus with diabetic microalbuminuria, without long-term current use of insulin ([facility])- Primary Essential hypertension Unspecified essential hypertension Other hyperlipidemia JANETT (obstructive sleep apnea) Obstructive sleep apnea (adult) (pediatric) Type 2 diabetes mellitus without complication, without long-term current use of insulin ([facility]) Type 2 diabetes mellitus with diabetic microalbuminuria, without long-term current use of insulin ([facility])- Primary Morbid (severe) obesity due to excess calories ([facility]) Other hyperlipidemia Body mass index (BMI) 39.0-39.9, [...] microalbuminuria, without long-term current use of insulin ([facility])- Primary Essential hypertension Unspecified essential hypertension Morbid (severe) obesity due to excess calories (E66.01) Cigarette nicotine dependence without complication Chronic gout of multiple sites, unspecified cause Gastroesophageal reflux disease without esophagitis Esophageal reflux Bilateral lower extremity edema Diabetic polyneuropathy associated with type 2 diabetes mellitus (HCC) documented in this encounter [facility] HealthcareEvaluation note* Diagnosis Encounter for screening mammogram for breast cancer- Primary Encounter for screening for malignant neoplasm of colon Type 2 diabetes mellitus without complication, without long-term current use of insulin ([facility]) Upper respiratory tract infection, unspecified type URTI [...] Morbid (severe) obesity due to excess calories ([facility]) Other hyperlipidemia Body mass index (BMI) 39.0-39.9, [...] esophagitis Esophageal reflux Bilateral lower extremity edema Lumbar back pain Lumbago documented in this encounter [facility] HealthcareEvaluation note* Diagnosis Encounter for screening mammogram for breast cancer- Primary Encounter for screening for malignant neoplasm of colon Type 2 diabetes mellitus without complication, without long-term current use of insulin ([facility]) Upper respiratory tract infection, unspecified type URTI (acute upper respiratory infection) Acute upper respiratory infections of unspecified site Migraine with aura and without status migrainosus, not intractable- Primary Type 2 diabetes mellitus without complication, without long-term current use of insulin ([facility]) Morbid (severe) obesity due to excess calories (E66.01) Body mass index [BMI] 40.0-44.9, adult (Z68.41) Essential hypertension Unspecified essential hypertension Essential hypertension- Primary Unspecified essential hypertension Type 2 diabetes mellitus without complication, without long-term current use of insulin ([facility]) Back spasm Other symptoms referable to back [...] microalbuminuria, without long-term current use of insulin ([facility])- Primary Other hyperlipidemia Essential hypertension Unspecified essential hypertension Bilateral lower extremity edema Lumbar back pain- Primary [place] Hospital discharge follow-up Other follow-up examination Essential hypertension- Primary Unspecified essential hypertension Type 2 diabetes mellitus with diabetic microalbuminuria, without long-term current use of insulin ([facility]) Morbid (severe) obesity due to excess calories (E66.01) Other hyperlipidemia Lumbar back pain Lumbago Type 2 diabetes mellitus without complication, without long-term current use of insulin ([facility]) Diabetic polyneuropathy associated with type 2 diabetes mellitus ([facility]) Mixed urge and stress incontinence Mixed incontinence urge and stress (male)(female) Snoring Other dyspnea and respiratory abnormality Encounter for long-term (current) use of high-risk medication Encounter for long-term (current) use of other medications Type 2 diabetes mellitus with diabetic microalbuminuria, without long-term current use of insulin ([facility])- Primary Essential hypertension Unspecified essential hypertension Other hyperlipidemia Snoring Other dyspnea and respiratory abnormality Mixed urge and stress incontinence Mixed incontinence urge and stress (male)(female) Type 2 diabetes mellitus with diabetic microalbuminuria, without long-term current use of insulin ([facility])- Primary Essential hypertension Unspecified essential hypertension Other hyperlipidemia JANETT (obstructive sleep apnea) Obstructive sleep apnea (adult) (pediatric) Type 2 diabetes mellitus without complication, without long-term current use of insulin ([facility]) Type 2 diabetes mellitus with diabetic microalbuminuria, without long-term current use of insulin ([facility])- Primary Morbid (severe) obesity due to excess calories ([facility]) Other hyperlipidemia Body mass index (BMI) 39.0-39.9, [...] polyneuropathy associated with type 2 diabetes mellitus ([facility]) Type 2 diabetes mellitus with diabetic microalbuminuria, without long-term current use of insulin ([facility])- Primary Essential hypertension Unspecified essential hypertension Morbid (severe) obesity due to excess calories (E66.01) Cigarette nicotine dependence without complication Chronic gout of multiple sites, unspecified cause Gastroesophageal reflux disease without esophagitis Esophageal reflux Bilateral lower extremity edema Other hyperlipidemia [facility] - Reported* Type Description Date Medical History GERD (gastroesophageal reflux di sease) Medical History Migraine headache Medical History Arthritis Medical History Edema of both legs Medical History Diabetes mellitus, type 2 Medical History Chronic back pain Surgical History ablasion Surgical History back surgery Surgical History hysterectomy Surgical History tubal ligation Hospitalization History see above [employer] Other Reason for referral (narrative)* Consultation (Routine) - Pending Review Specialty Diagnoses / Procedures Referred By Darren acharya Referred To Contact Neurology Diagnoses Snoring Procedures [place] OFFICE/OUTPATIENT NEW HIGH [facility] 60 MINUTES Sonam Drake NP [address] [place] [address] Sivan Banda DO [address] [place] [address] Referral ID Status Reason Start Date Expiration Date Visits Requested Visits Authorized [id number] Pending Review Specialty Services Required 10/03/2023 03/31/2024 1 1 Scheduling Instructions Please include OV note from today * Consultation (Routine) - Pending Review Specialty Diagnoses / Procedures Referred By Darren acharya Referred To Contact Urology Diagnoses Mixed urge and stress incontinence Procedures NC OFFICE/OUTPATIENT NEW HIGH [facility] 60 MINUTES Sonam Drake NP [address] [place] [address] Skinny Villafuerte MD [address] [place] [address] Referral ID Status Reason Start Date Expiration Date Visits Requested Visits Authorized [id number] Pending Review Specialty Services Required 10/03/2023 03/31/2024 [...] Care Teams (unrecognized sec tion and content) General Car Yard Supervisor Relationship Specialty Start Date End Date Sr Jonathan Edwards, [address] [place] [address] PCP - General Family Medicine 08/30/21 General Car Yard Supervisor Relationship Specialty Start Date End Date [...] April 30, 2023 End: April 30, 2023 General Car Yard Supervisor Relationship Specialty Start Date End Date Jose Chandler MD [address] [place] [address] PCP - General Family Medicine 12/12/23 Sonam Drake NP [address] [place] [address] Nurse Practitioner Family Medicine 09/24/23 General Car Yard Supervisor Relationship Specialty Start Date End Date Jose Chandler MD [address] [place] [address] PCP - General Family Medicine 12/12/23 Sonam Drake NP [address] [place] [address] Nurse Practitioner Family Medicine 09/24/23 General Car Yard Supervisor Relationship Specialty Start Date End Date Jose Chanlder MD [address] [place] [address] PCP - General Family Medicine 12/12/23 Sonam Drake NP [address] [place] [address] Nurse Practitioner Family Medicine 09/24/23 General Car Yard Supervisor Relationship Specialty Start Date End Date Jose Chandler MD [address] [place] [address] PCP - General Family Medicine 12/12/23 Sonam Drake NP [address] [place] [address] Nurse Practitioner Family Medicine 09/24/23 General Car Yard Supervisor Relationship Specialty Start Date End Date Jose Chandler MD [address] [place] [address] PCP - General Family Medicine 12/12/23 Sonam Drake NP [address] [place] [address] Nurse Practitioner Family Medicine 09/24/23 General Car Yard Supervisor Relationship Specialty Start Date End Date Jose Chandler MD [address] [place] [address] PCP - General Family Medicine 12/12/23 Sonam Drake NP [address] [place] [address] Nurse Practitioner Family Medicine 09/24/23 General Car Yard Supervisor Relationship Specialty Start Date End Date Jose Chandler MD [address] [place] [address] PCP - General Family Medicine 09/24/23 Sonam Drake NP [address] [place] [address] Nurse Practitioner Family Medicine 09/24/23 General Car Yard Supervisor Relationship Specialty Start Date End Date Jose Chandler MD [address] [place] [address] PCP - General Family Medicine 09/24/23 Sonam Drake NP [address] [place] [address] Nurse Practitioner Family Medicine 09/24/23 General Car Yard Supervisor Relationship Specialty Start Date End Date Jose Chandler MD [address] [place] [address] PCP - General Family Medicine 09/24/23 Sonam Drake NP [address] [place] [address] Nurse Practitioner Family Medicine 09/24/23 General Car Yard Supervisor Relationship Specialty Start Date End Date Jose Chandler MD [address] [place] [address] PCP - General Family Medicine 09/24/23 Sonam Drake NP [address] [place] [address] Nurse Practitioner Family Medicine 09/24/23 General Car Yard Supervisor Relationship Specialty Start Date End Date Jose Chandler MD [address] [place] [address] PCP - General Family Medicine 12/12/23 Sonam Drake NP [address] [place] [address] Nurse Practitioner Family Medicine 09/24/23 General Car Yard Supervisor Relationship Specialty Start Date End Date Jose Chandler MD [address] [place] [address] PCP - General Family Medicine 12/12/23 Sonam Drake NP [address] [place] [address] Nurse Practitioner Family Medicine 09/24/23 General Car Yard Supervisor Relationship Specialty Start Date End Date Jose Chandler MD [address] [place] [address] PCP - General Family Medicine 12/12/23 Sonam Drake NP [address] [place] [address] Nurse Practitioner Family Medicine 09/24/23 General Car Yard Supervisor Relationship Specialty Start Date End Date Jose Chandler MD [address] [place] [address] PCP - General Family Medicine 12/12/23 Sonam Drake NP [address] [place] [address] Nurse Practitioner Family Medicine 09/24/23 General Car Yard Supervisor Relationship Specialty Start Date End Date Jose Chandler MD [address] [place] [address] PCP - General Family Medicine 12/12/23 Sonam Drake NP [address] [place] [address] Nurse Practitioner Family Medicine 09/24/23 General Car Yard Supervisor Relationship Specialty Start Date End Date Jose Chandler MD [address] [place] [address] PCP - General Family Medicine 12/12/23 Sonam Drake NP [address] [place] [address] Nurse Practitioner Family Medicine 09/24/23 General Car Yard Supervisor Relationship Specialty Start Date End Date Jose Chandler MD [address] [place] [address] PCP - General Family Medicine 12/12/23 Sonam Drake NP [address] [place] [address] Nurse Practitioner Family Medicine 09/24/23 General Car Yard Supervisor Relationship Specialty Start Date End Date Jose Chandler MD [address] [place] [address] PCP - General Family Medicine 12/12/23 Sonam Drake NP [address] [place] [address] Nurse Practitioner Family Medicine 09/24/23 General Car Yard Supervisor Relationship Specialty Start Date End Date Jose Chandler MD [address] [place] [address] PCP - General Family Medicine 12/12/23 Sonam Drake NP [address] [place] [address] Nurse Practitioner Family Medicine 09/24/23 General Car Yard Supervisor Relationship Specialty Start Date End Date Jose Chandler MD [address] [place] [address] PCP - General Family Medicine 12/12/23 Sonam Drake NP [address] [place] [address] Nurse Practitioner Family Medicine 09/24/23 General Car Yard Supervisor Relationship Specialty Start Date End Date Jose Chandler MD [address] [place] [address] PCP - General Family Medicine 12/12/23 Sonam Drake NP Nurse Practitioner Family Medicine 09/24/23 Za Wilkerson, RONALDO [address] [place], [place] Nurse Practitioner Neurology 04/21/24 Sivan Banda DO [address] [place], [place] [address] Referring Physician Neurology 04/21/24 General Car Yard Supervisor Relationship Specialty Start Date End Date Jose Chandler MD [address] [place] [address] PCP - General Family Medicine 12/12/23 Sonam Drake NP Nurse Practitioner Family Medicine 09/24/23 Za Wilkerson NP [address] [place], [place] Nurse Practitioner Neurology 04/21/24 Sivan Banda DO [address] [place] [address] Referring Physician Neurology 04/21/24 General Car Yard Supervisor Relationship Specialty Start Date End Date Jose Chandler MD [address] [place] [address] PCP - General Family Medicine 12/12/23 Sonam Drake NP Nurse Practitioner Family Medicine 09/24/23 Za Wilkerson NP [address] [address] [place], [place] Nurse Practitioner Neurology 04/21/24 Sivan Banda DO [address] [place] [address] Referring Physician Neurology 04/21/24 General Car Yard Supervisor Relationship Specialty Start Date End Date Jose Chandler MD [address] [place] [address] PCP - General Family Medicine 12/12/23 Sonam Drake NP Nurse Practitioner Family Medicine 09/24/23 Za Wilkerson NP [address] [address] [place], [place] Nurse Practitioner Neurology 04/21/24 Sivan Banda DO [address] [place], [place] [address] Referring Physician Neurology 04/21/24 General Car Yard Supervisor Relationship Specialty Start Date End Date Jose Chandler MD [address] [place] [address] PCP - General Family Medicine 12/12/23 Sonam Drake NP Nurse Practitioner Family Medicine 09/24/23 Za Wilkerson NP [address] Nurse Practitioner Neurology 04/21/24 Sivan Banda DO [address] [place] [address] Referring Physician Neurology 04/21/24 General Car Yard Supervisor Relationship Specialty Start Date End Date Jose Chandler MD [address] [place] [address] PCP - General Family Medicine 12/12/23 Sonma Drake NP Nurse Practitioner Family Medicine 09/24/23 Za Wilkerson NP [address] [place], [place] Nurse Practitioner Neurology 04/21/24 Sivan Banda DO [address] [place], [place] [address] Referring Physician Neurology 04/21/24 General Car Yard Supervisor Relationship Specialty Start Date End Date Jose Chandler MD [address] [place] [address] PCP - General Family Medicine 12/12/23 Sonam Drake NP Nurse Practitioner Family Medicine 09/24/23 Za Wilkerson NP [address] [place] Nurse Practitioner Neurology 04/21/24 Sivan Banda DO [address] [place] [address] Referring Physician Neurology 04/21/24 Team Status: Active [...] May 28, 2024 End: May 28, 2024 General Car Yard Supervisor Relationship Specialty Start Date End Date Jose Chandler MD [address] [place] [address] PCP - General Family Medicine 12/12/23 Sonam Drake NP Nurse Practitioner Family Medicine 09/24/23 Za Wilkerson NP [address] [place] [address] Nurse Practitioner Neurology 04/21/24 Sivan Banda DO [address] [place] [address] Referring Physician Neurology 04/21/24 General Car Yard Supervisor Relationship Specialty Start Date End Date Jose Chandler MD [address] [place] [address] PCP - General Family Medicine 12/12/23 Sonam Drake NP Nurse Practitioner Family Medicine 09/24/23 Za Wilkerson NP [address] [place] [address] Nurse Practitioner Neurology 04/21/24 Sivan Banda DO [address] [place] [address] Referring Physician Neurology 04/21/24 General Car Yard Supervisor Relationship Specialty Start Date End Date Jose Chandler MD [address] [place] [address] PCP - General Family Medicine 12/12/23 Sonam Drake NP Nurse Practitioner Family Medicine 09/24/23 Za Wilkerson NP [address] [place], [place] Nurse Practitioner Neurology 04/21/24 Sivan Banda DO [address] [place] [address] Referring Physician Neurology 04/21/24 General Car Yard Supervisor Relationship Specialty Start Date End Date Jose Chandler MD [address] [place] [address] PCP - General Family Medicine 12/12/23 Sonam Drake NP Nurse Practitioner Family Medicine 09/24/23 Za Wilkerson NP [address] [place] [address] Nurse Practitioner Neurology 04/21/24 Sivan Banda DO [address] [place] [address] Referring Physician Neurology 04/21/24 General Car Yard Supervisor Relationship Specialty Start Date End Date Jose Chandler MD [address] [place] [address] PCP - General Family Medicine 12/12/23 Sonam Drake NP Nurse Practitioner Family Medicine 09/24/23 Za Wilkerson, RONALDO [address] [place] [address] Nurse Practitioner Neurology 04/21/24 Sivan Banda DO [address] [place], [place] [address] Referring Physician Neurology 04/21/24 General Car Yard Supervisor Relationship Specialty Start Date End Date Jose Chandler MD [address] [place] [address] PCP - General Family Medicine 12/12/23 Sonam Drake NP Nurse Practitioner Family Medicine 09/24/23 Za Wilkerson, RONALDO [address] [place] [address] Nurse Practitioner Neurology 04/21/24 Sivan Banda DO [address] [place] [address] Referring Physician Neurology 04/21/24 General Car Yard Supervisor Relationship Specialty Start Date End Date Jose Chandler MD [address] [place] [address] PCP - General Family Medicine 12/12/23 Sonam Drake NP Nurse Practitioner Family Medicine 09/24/23 Za Wilkerson NP [address] [place] [address] Nurse Practitioner Neurology 04/21/24 Sivan Banda DO [address] [place] [address] Referring Physician Neurology 04/21/24 General Car Yard Supervisor Relationship Specialty Start Date End Date Jose Chandler MD [address] [place] [address] PCP - General Family Medicine 12/12/23 Sonam Drake NP Nurse Practitioner Family Medicine 09/24/23 Za Wilkerson NP [address] [place] [address] Nurse Practitioner Neurology 04/21/24 Sivan Banda DO [address] [place] [address] Referring Physician Neurology 04/21/24 General Car Yard Supervisor Relationship Specialty Start Date End Date Jose Chandler MD [address] [place] [address] PCP - General Family Medicine 12/12/23 Sonam Drake NP Nurse Practitioner Family Medicine 09/24/23 Za Wilkerson NP [address] [place] [address] Nurse Practitioner Neurology 04/21/24 Sivan Banda DO [address] [place] [address] Referring Physician Neurology 04/21/24 General Car Yard Supervisor Relationship Specialty Start Date End Date Jose Chandler MD [address] [place] [address] PCP - General Family Medicine 12/12/23 Sonam Drake NP Nurse Practitioner Family Medicine 09/24/23 Za Wilkerson NP [address] [place] [address] Nurse Practitioner Neurology 04/21/24 Sivan Banda DO [address] [place] [address] Referring Physician Neurology 04/21/24 General Car Yard Supervisor Relationship Specialty Start Date End Date Jose Chandler MD [address] [place] [address] PCP - General Family Medicine 12/12/23 Sonam Drake NP Nurse Practitioner Family Medicine 09/24/23 Za Wilkerson NP [address] [place] [address] Nurse Practitioner Neurology 04/21/24 Sivan Banda DO [address] [place] [address] Referring Physician Neurology 04/21/24 General Car Yard Supervisor Relationship Specialty Start Date End Date Jose Chandler MD [address] [place] [address] PCP - General Family Medicine 12/12/23 Sonam Drake NP Nurse Practitioner Family Medicine 09/24/23 Za Wilkerson NP [address] [place] [address] Nurse Practitioner Neurology 04/21/24 Sivan Banda DO [address] [place] [address] Referring Physician Neurology 04/21/24 General Car Yard Supervisor Relationship Specialty Start Date End Date Jose Chandler MD [address] [place] [address] PCP - General Family Medicine 12/12/23 Sonam Drake NP Nurse Practitioner Family Medicine 09/24/23 Za Wilkerson NP [address] [place] [address] Nurse Practitioner Neurology 04/21/24 Sivan Banda DO [address] [place] [address] Referring Physician Neurology 04/21/24 INFORMATION SOURCE (unrecogn ized section and content) DATE CREATED AUTHOR 09/10/2021 [facility] DATE CREATED AUTHOR AUTHOR'S ORGANIZ ATION 06/08/2022 [facility] [place] [facility] DATE CREATED AUTHOR AUTHOR'S ORGANIZ ATION 10/06/2023 [facility] DATE CREATED AUTHOR AUTHOR'S ORGANIZ ATION 06/01/2024 [facility] DATE CREATED AUTHOR AUTHOR'S ORGANIZ ATION 07/15/2024 [facility] DATE CREATED AUTHOR AUTHOR'S ORGANIZ ATION 08/24/2024 [facility] EPIC REASON FOR VISIT [...] REF/LAB Specialty Diagnoses / Procedures Referred By Contac t Referred To Contact Endocrinology Diagnoses Low serum parathyroid hormone (PTH) Procedures [place] OFFICE/OUTPATIENT NEW HIGH [facility] 60 MINUTES Ameena Vera NP [address] [place] [address] Phone: tel: fax: Kasi Bennett MD [address] [facility] [place] [place] [address] Phone: tel: fax: Referral ID Status Reason Start Date Expiration Date Visits Requested Visits Authorized [id number] Pending Review Specialty Services Required 07/14/2024 01/10/2025 1 1 Reason Onset Date Comments Med Refill 10/05/2024 Goals (unrecognized section and content) Goals may [...] BE BASED ON THE PRIMARY CLINICAL RECORDS. [facility] provides no warranty or guarantee of the accuracy or completeness of information in this document.
== END 2024-10-07 11:23 | disposition home or self-care (01) ==
LOC: PM 11:23
PROVIDERS: PCP Nurse Practitioner; Visit Provider Nurse Practitioner
DX: M46.1 Sacroiliitis, not elsewhere classified (principal); M47.816 Spondylosis without myelopathy or radiculopathy, lumbar region; M79.18 Myalgia, other site; Z79.891 Long term (current) use of opiate analgesic; M53.3 Sacrococcygeal disorders, not elsewhere classified; M48.062 Spinal stenosis, lumbar region with neurogenic claudication
CPT/HCPCS: G0463

== ENCOUNTER 2024-10-26 10:00 | Day surgery (SDC) | payer OTHER, MEDICARE, SELFPAY ==
--- OUTSIDE RECORDS SUMMARY | 2024-10-19 08:14 | XMS_ITS | Continuity of Care Document ---
Author Organization [facility] Address [address] [place] [address] Phone Care Team Providers Care Floor Steward/Stewardess Name Role Phone Ameena Vera Primary Care Provider Ameena Vera Attending Provider [phone] Care Teams Patient Care Team Team Status: Active Member Role Status Dates Ameena Vera Primary Care Provider Active Patient Care Team Team Status: Inactive Member Role Status Dates Ameena Vera Primary Care Provider Active Sta rt: October 19, 2024 End: October 19, 2024 Ameena Vera Attending Provider Active Start: October 19, 2024 End: October 19, 2024 Chief Complaint and Reason for Visit Chief Complaint Admit Date Hospital Follow Up October 19, 2024 11:32am Allergies, Adverse Reactions, Alerts Allergen Type Severity Reaction Last Updated Verified Status No Known Allergies Allergy Unknown 2024 7:46am Yes Active Social History Smoking Status Status Start Date End Date Date of Observa tion Ex-smoker (finding) May 1:00pm Observation Status Observation Response Date of Response Legal Sex Female (finding) Sex Assigned At Female 1965 Family History Relationship Condition Age at Onset Recorded Date/T samreen mother Heart disease Unknown Diabetes mellitus Unknown Problems Active Problems Medical Problem Onset Date Status Comments Nicotine dependence with current use Unknown Acti ve Basal cell carcinoma (BCC) of skin of nose Unknown Active Bilateral lower extremity edema Unknown Active Mixed urge and stress incontinence Unknown Active Type 2 diabetes mellitus wit h diabetic microalbuminuria, without long-term current use of insulin Unknown Active GERD with apnea without esophagitis Unknown Activ e JANETT (obstructive sleep apnea) Unknown Active Primary osteoarthritis of right knee Unknown Acti ve Migraine with aura and witho ut status migrainosus, not intractable Unknown Active Back spasm Unknown Active DM2 (diabetes mellitus, type 2) Unknown Active Closed physeal fracture of p roximal end of left fibula with routine healing Unknown Active Mixed hyperlipidemia Unknown Active Low serum parathyroid hormone (PTH) Unknown Activ e Essential hypertension Unknown Active Acute gout of left wrist Unknown Active Chronic gout of multiple sites Unknown Active Morbid obesity due to excess calories Unknown Act bj Lumbar back pain Unknown Active Right knee pain Unknown Active Arthritis of carpometacarpal (CMC) joint of left thumb Unknown Active HTN (hypertension) Unknown Active Inactive/Resolved Problems Medical Problem Onset Date Status Comments GRICEL (acute kidney injury) Unknown Resolved Pr oblem List clean-up per request of Phys. EHR Cmte Restless leg syndrome Unknown Resolved Proble m List clean-up per request of Phys. EHR Cmte Right facial numbness Unknown Resolved Proble m List clean-up per request of Phys. EHR Cmte Hypercalcemia Unknown Resolved Problem List c lean-up per request of Phys. EHR Cmte Medications Medication Status Dose Units Route Directions Qty Days St art Date Stop Date End Date Instructions Adherence Indomethaci n 50 mg Capsule Discont inued 50 MG PO Twice daily [facility] er 2016 1:00am Dece pablo 2016 2:23p m Divalproex (Depakote Er) 500 mg Tablet Extended Release 24 Hr Active 500 MG PO Twice daily [facility] er 2016 1:00am Complies with drug therapy Pregabalin 50 mg capsule Discont inued 50 MG PO Daily [facility] er 2016 1:00am May 28, 2024 1:24p m Pregabalin 50 mg capsule Discont inued 100 MG PO Bedtime [facility] er 2016 1:00am May 28, 2024 1:23p m Metformin 500 mg tablet Active 500 MG PO Twice daily [facility] er 2016 1:00am Complies with drug therapy Hydrochloro thiazide 25 mg Tablet Discont inued 25 MG PO Daily [facility] er 2016 1:00am Dece pablo 2016 2:23p m Alendronate (Fosamax) 70 mg Tablet Discont inued 70 MG PO every week [facility] er 2016 1:00am Dece pablo 2016 2:22p m Aspirin (Kumar Low Dose Aspirin) 81 mg Tablet,Justa yed Release (Dr/Ec) Active 81 MG PO Bedtime [facility] er 2016 1:00am Complies with drug therapy Ascorbic Acid (Vitamin C) (Vitamin C) 100 mg Tablet Discont inued 500 MG PO Daily Dece er 2016 1:00am Dece pablo 2016 2:22p m Multivitami n-Ca-Iron-M inerals (Multiple Vitamin, Womens) Tablet Discont inued PO Daily [facility] er 2016 1:00am Dece pablo 2016 2:23p m Lansoprazol e 30 mg Capsule,Del ayed Release(Dr/ Ec) Discont inued 30 MG PO Daily [facility] er 2016 1:00am [facility] 2024 7:54a m Lactobacill us Acidophilus (Probiotic Acidophilus ) 1.5 mg (250 million cell) Capsule Discont inued PO Daily [facility] 2016 1:00am [facility] pablo 2016 2:23p m Oxycodone-A cetaminophe n (Percocet) 10-325 mg Tablet Active 1 TAB PO as needed for Back Pain [facility] 2016 1:00am Complies with drug therapy Eletriptan (Relpax) 40 mg Tablet Discont inued 40 MG PO as needed for Migraine Headache [facility] 2016 1:00am May 28, 2024 1:17p m Methocarbam ol (Robaxin-75 0) 750 mg Tablet Discont inued 750 MG PO Bedtime as needed for Muscle Pain [facility] 2016 1:00am [facility] 2016 2:23p m Semaglutide (Ozempic) 2 mg/dose (8 mg/3 mL) pen injector Active 2 MG SUBCUT every week May 28, 2024 12:00a m Complies with drug therapy Alendronate (Fosamax) 70 mg tablet Active 70 MG PO every week May 28, 2024 12:00a m Complies with drug therapy Allopurinol 300 mg tablet Active 300 MG PO Daily May 28, 2024 12:00a m Complies with drug therapy Baclofen 20 mg tablet Discont inued 20 MG PO Twice daily May 28, 2024 12:00a m [facility] 2024 7:56a m Colchicine 0.6 mg tablet Active 0.6 MG PO Daily May 28, 2024 12:00a m Complies with drug therapy Diclofenac Sodium 75 mg tablet,justa yed release (DR/EC) Active 75 MG PO Twice daily May 28, 2024 12:00a m Complies with drug therapy Famotidine (Pepcid) 20 mg tablet Discont inued 20 MG PO Daily May 28, 2024 12:00a m [facility]2024 7:56a m Furosemide (Lasix) 20 mg tablet Active 20 MG PO Daily as needed May 28, 2024 12:00a m Complies with drug therapy Metformin 500 mg tablet Discont inued 500 MG PO Twice daily May 28, 2024 12:00a m [facility]2024 7:54a m Pregabalin 75 mg capsule Discont inued 75 MG PO Twice daily May 28, 2024 12:00a m [facility] 2024 7:56a m Rizatriptan (Maxalt) 10 mg tablet Active 0 PO .COMPLEX May 28, 2024 12:00a m take 1 tab at onset of headache; if no relief may repeat 1 tab after at least 2 hrs; max = 3 tabs/24 hr PO Complies with drug therapy Rosuvastati n (Crestor) 20 mg tablet Active 20 MG PO Daily May 28, 2024 12:00a m Complies with drug therapy Baclofen 20 mg tablet Discont inued 20 MG PO Three times daily as needed for spasms 2024 7:54am [facility]2024 12:05 pm Famotidine (Pepcid) 20 mg tablet Active 20 MG PO Twice daily 2024 7:55am Complies with drug therapy Pregabalin 75 mg capsule Discont inued 75 MG PO Three times daily 2024 7:56am [facility]2024 12:05 pm Baclofen 20 mg tablet Active 20 MG PO Every 12 hours as needed for spasms 2024 11:56a m Complies with drug therapy Pregabalin 75 mg capsule Active 150 MG PO Daily at bedtime 2024 11:58a m Complies with drug therapy Immunizations Immunization Event Date Not Given Reason Dose Number Diesel Locomotive Firer/Fireman Lot Number Vaccine Information Statement (VIS) Detail Administration Location Quadrivalent Influenza January 14, 2017 [id number] [facility] Vital Signs Vital Reading Result Reference Range Collection Date/Time Weight 96.41 kg October 19, 2024 11:44am Body Temperature 98.1 [degF] 97.6-99.0 October 192024 11:44am Heart Rate 93 /min 60-100 October 19, 2024 11:44am Respiratory rate 16 /min 12-24 October 192024 11:44am Oxygen saturation by Pulse oximetry 97 % 95-100 October 19, 2024 11:44am BP Systolic 138 mm[Hg] 100-140 October 19, 2024 11:44am BP Diastolic 78 mm[Hg] 60-100 October 19, 2024 11:44am Advance Directives Advance Directive Response Recorded Date/ Time Advance Directives No January 12, 2017 9:25pm Insurance Providers Guarantor Brian Weir Address [address] [place] [phone] Contact Info. Home Phone: Payer Policy Id Subscriber's Name Subscriber Id Effectiv e Date Expiration Date Medicare [id number] Brian Weir [id number] [employer] [id number] Lui Weir [id number] Encounters Encounter Location(s) Arrival/Admit Date Discharge/Depart Date Provider(s) Departed Physician/Prov ider Office Visit -[facility] Family Medicine Juan Carlos October 19, 2024 11:32am October 19, 2024 12:13pm SABA Tracey
--- OUTSIDE RECORDS SUMMARY | 2024-10-26 10:04 | XMS_ITS | Encounter Summary ---
Author Organization [facility] Address [address] [place] [address] Care Team Providers Care Head Up Operator Helper Name Role Phone Ijeoma Lane MONORAIL CHARGER OPERATOR Unavailable [phone] Jose Chandler MD Primary Care Provider [phone] Za Wilkerson MONORAIL CHARGER OPERATOR Unavailable [phone] Madhuri Banda DO Unavailable [phone] Encounter Details Date Type Department Care [...] often do you attend chur ch or hoahaoism services? Patient declined 10/02/2023 Do you belong to any clubs o r organizations such as sabianist groups, unions, fraternal or athletic groups, or [...] or rent on time? Patient declined 10/02/19 Number of Times Moved in the Last Year Not on fi le 10/02/2023 At any time in the past 12 m [facility], were you homeless or living in a senior care (including now)? Patient declined 10/02/2023 Comments Unknown Sex and Gender Information Value Date Recorded Sex Assigned at Not on file Legal Sex Female 6:48 PM EDT Gender Identity Not on file Sexual Orientation Not on file documented as of this encounter Plan of Treatment Upcoming Encounters Date Type Department Care Team (Late st Contact Info) Description 11/02/2024 10:10 AM EDT Office Visit [facility] [address] [place] [address] Kasi Bennett MD [address] [place] [address] 04/06/2025 1:15 PM EST Office Visit [facility] [address] [place] [address] Elida Monroy MD [address] [place] [address] documented as of this encounter Procedures Procedure Name Priority Date/Time Associated Diagnosis Comments XR FOOT LT MIN 3V 01/30/2024 5:3 8 AM EST documented in this encounter Results * XR FOOT LT MIN 3V (01/30/2024 5:38 AM EST) Anatomical Region Laterality Modality Other 01/30/2024 5:38 AM EST Narrative 01/30/2024 5:41 AM EST The [address] [address] XRay Report Signed Patient: KARINA WEIR MR#: [id number] : 1965 Acct:[id number] Age/Sex: 58 / F ADM Date: 01/29/24 Loc: RAD Attending Dr: Sussy Jefferson DPasqualePEva Ordering Physician: Sussy Jefferson D.P.M. Date of Service: 01/29/24 Procedure(s): XR foot LT min 3V Accession Number(s): [id number] cc: IJEOMA LANE; Sussy Jefferson D.P.M. The [place] [id number] Patient Name: KARINA WEIR MRN: [id number] date: 1965 Sex: F Assigned Patient Location: RAD Current Patient Location: Accession/Order Number: [id number] Exam Date: 01/29/2024 09:28 Report Date: 01/30/2024 [...] Signed By: 01/30/24 0541 DD/ 0538 TD/TT: Wrecker Driver: Procedure Note Radiology, Radiologist, MD - 01/30/2024 [place] [address] XRay Report Signed Patient: KARINA WEIR KMR#: [id number] : 1965Acct:[id number] Age/Sex: 58 / FADM Date: 01/29/24 Loc: RAD Attending Dr: Sussy Jefferson D.P.M. Ordering Physician: Sussy Jefferson D.P.M. Date of Service: 01/29/24 Procedure(s): XR foot LT min 3V Accession Number(s): [id number] cc: IJEOMA LANE; Sussy Jefferson D.P.M. [place] [id number] Patient Name: KARINA WEIR MRN: [id number] date: 1965 Sex: F Assigned Patient [facility]: [facility] Current Patient Location: Accession/Order Number: [id number] Exam Date: 01/29/2024 09:28 Report Date: 01/30/2024 [...] 05:38 Dictated By: Navid Cortes M.D. Signed By:01/30/24 0541 DD/ 0538 TD/TT: Wrecker Driver: Generic External Data Provider [facility] Final Result documented in this encounter Visit Diagnoses Not on filedocumented in this encounter Care Teams Head Up Operator Helper Relationship Specialty Start Date End Date Jose Chandler MD PCP - General Family Medicine 12/12/[address] NP Nurse Practitioner Family Medicine 09/24/23 Za Wilkerson NP Nurse Practitioner Neurology 04/21/24 Madhuri Badna DO [address] [place] [address] Referring Physician Neurology 04/21/24 documented as of this encounter
--- OUTSIDE RECORDS SUMMARY | 2024-10-26 10:04 | XMS_ITS | Encounter Summary ---
Author Organization [facility] Address [address] [place] [address] Care Team Providers Care Plate Setter Name Role Phone Shaikh BUNNY Connelly Primary Care Provider [phone] Jose Chandler MD Primary Care Provider [phone] Ijeoma Drake INDUSTRIAL HYGIENIST Unavailable [phone] Unallocated, Timur Hernandez MD Primary Care Provi shayna Jose Chandler MD Primary Care Provider [phone] Za Wilkerson INDUSTRIAL HYGIENIST Unavailable [phone] Madhuri Banda DO Unavailable [phone] Encounter Details Date Type Department Care [...] Department Care Team (Late Contact Info) Description 11/02/2024 10:10 AM EDT Office Visit [facility] [address] [place] [phone] Kasi Bennett MD [address] [place] [address] 04/06/2025 1:15 PM EST Office Visit [facility] [address] [place] [address] Elida Monroy MD [address] [place] [address] documented as of this encounter Procedures Procedure Name Priority Date/Time Associated Diagnosis Comments CT FOOT LT WO CON 09/13/2023 5:0 2 AM EDT documented in this encounter Results * CT FOOT LT WO CON (09/13/2023 5:02 AM EDT) Anatomical Region Laterality Modality Other 09/13/2023 5:02 AM EDT Narrative 09/13/2023 5:05 [place] [address] CT Scan Report Signed Patient: KARINA DE OLIVEIRA MR#: [id number] : 1965 Acct:[id number] Age/Sex: 57 / F ADM Date: 09/12/23 Loc: CT Attending Dr: Sussy Jefferson D.P.M. Ordering Physician: Sussy Jefferson D.P.M. Date of Service: 09/12/23 Procedure(s): CT foot LT wo con Accession Number(s): [id number] cc: Shaikh Erica Connelly [address] [address] Patient Name: KARINA DE OLIVEIRA MRN: [id number] date: 1965 Sex: F Assigned Patient Location: CT Current Patient Location: Accession/Order Number: [id number] Exam Date: 09/12/2023 12:57 Report Date: 09/13/2023 [...] Signed By: 09/13/23 0505 DD/ 0502 TD/TT: Airframe Technician: Procedure Note Radiology, Radiologist, MD - 09/13/2023 [place] [address] CT Scan Report Signed Patient: KARINA DE OLIVEIRA KMR#: [id number] : 1965Acct:[id number] Age/Sex: 57 / FADM Date: 09/12/23 Loc: CT Attending Dr: Sussy Jefferson D.P.M. Ordering Physician: Sussy Jefferson D.P.M. Date of Service: 09/12/23 Procedure(s): CT foot LT wo con Accession Number(s): [id number] cc: Shaikh Erica Connelly The [place] [address] Patient Name: KARINA DE OLIVEIRA MRN: [id number] date: 1965 Sex: F Assigned Patient Location: CT Current Patient Location: Accession/Order Number: [id number] Exam Date: 09/12/2023 12:57 Report Date: 09/13/2023 [...] Dictated By: Navid Cortes M.D. Signed By:09/13/23 0503 DD/ 0502 TD/TT: Airframe Technician: Generic External Data Provider [facility] Final Result documented in this encounter Visit Diagnoses Not on filedocumented in this encounter Care Teams Plate Setter Relationship Specialty Start Date End Date Shaikh Connelly MD [address] [place] [address] PCP - General Internal Medicine 05/02/23 09/23/23 Jose Chandler MD [address] [place] [address] PCP - General Family Medicine 09/24/23 11/25/23 Unallocated, Timur Hernandez MD [address] [place] [address] PCP - General Family Medicine 11/26/23 12/11/23 Jose Chandler MD [address] [place] [address] PCP - General Family Medicine 12/12/23 Ijeoma Drake NP [address] [place] [address] Nurse Practitioner Family Medicine 09/24/23 Za Wilkerson NP [address] [facility] [place] [address] Nurse Practitioner Neurology 04/21/24 Madhuri Banda DO [address] [place] [address] Referring Physician Neurology 04/21/24 documented as of this encounter
--- OUTSIDE RECORDS SUMMARY | 2024-10-26 10:04 | XMS_ITS | Encounter Summary ---
Author Organization [facility] Address [address] [place] [address] Care Team Providers Care Opal Polisher Name Role Phone Shaikh BUNNY Connelly Primary Care Provider [phone] Jose Chandler MD Primary Care Provider [phone] Ijeoma Drake NURSE PLASTICS Unavailable [phone] Unallocated, Timur Hernandez MD Primary Care Provi shayna Jose Chandler MD Primary Care Provider [phone] Za Wilkerson NURSE PLASTICS Unavailable [phone] Madhuri Banda DO Unavailable [phone] Encounter Details Date Type Department Care [...] [facility] [address] [place] [address] Kasi Bennett MD [address] [place] [address] 04/06/2025 1:15 PM EST Office Visit [facility] [place] [facility] [address] [place] [address] Elida Monroy MD [address] [place] [address] documented as of this encounter Procedures Procedure Name Priority Date/Time Associated Diagnosis Comments XR TIBIA FIBULA LT 2V 08/14/2023 3:27 PM EDT documented in this encounter Results * XR TIBIA FIBULA LT 2V (08/14/2023 3:27 PM EDT) Anatomical Region Laterality Modality Other 08/14/2023 3:27 PM EDT Narrative 08/14/2023 3:29 [place] [address] XRay Report Signed Patient: KARINA DE OLIVEIRA MR#: [id number] : 1965 Acct:[id number] Age/Sex: 57 / F ADM Date: 08/13/23 Loc: EC Attending Dr: Sussy Jefferson D.P.M. Ordering Physician: Sussy Jefferson D.P.M. Date of Service: 08/13/23 Procedure(s): XR tibia fibula LT 2V Accession Number(s): [id number] cc: Shaikh Erica Connelly; Sussy Jefferson D.P.M. The [address] [address] Patient Name: KARINA DE OLIVEIRA MRN: [id number] date: 1965 Sex: F Assigned Patient Location: EC Current Patient Location: Accession/Order Number: [id number] Exam Date: 08/13/2023 14:05 Report Date: 08/14/2023 [...] Signed By: 08/14/23 1529 DD/ 1527 TD/TT: In Home Sales Consultant: Procedure Note Radiology, Radiologist, MD - 08/14/2023 [place] [address] XRay Report Signed Patient: KARINA DE OLIVEIRA KMR#: [id number] : 1965Acct:[id number] Age/Sex: 57 / FADM Date: 08/13/23 Loc: EC Attending Dr: Sussy Jefferson D.P.M. Ordering Physician: Sussy Jefferson D.P.M. Date of Service: 08/13/23 Procedure(s): XR tibia fibula LT 2V Accession Number(s): [id number] cc: Shaikh Erica Connelly; Sussy Jefferson D.P.M. The [place] [address] Patient Name: KARINA DE OLIVEIRA MRN: [id number] date: 1965 Sex: F Assigned Patient Location: Current Patient Location: Accession/Order Number: [id number] Exam Date: 08/13/2023 14:05 Report Date: 08/14/2023 [...] M.D. Signed By:08/14/23 1529 DD/ 1527 TD/TT: In Home Sales Consultant: Generic External Data Provider [facility] Final Result documented in this encounter Visit Diagnoses Not on filedocumented in this encounter Care Teams Opal Polisher Relationship Specialty Start Date End Date Shaikh Connelly MD [address] [place] [address] PCP - General Internal Medicine 05/02/23 09/23/23 Jose Chandler MD [address] [place] [address] PCP - General Family Medicine 09/24/23 11/25/23 Unallocated, Noms MD [facility] [place] [address] PCP - General Family Medicine 11/26/23 12/11/23 Jose Chandler MD [address] [place] [address] PCP - General Family Medicine 12/12/23 Ijeoma Drake NP [address] [place] [address] Nurse Practitioner Family Medicine 09/24/23 Za Wilkerson NP [address] [place] [address] Nurse Practitioner Neurology 04/21/24 Madhuri Banda DO [address] [place] [address] Referring Physician Neurology 04/21/24 documented as of this encounter
--- OUTSIDE RECORDS SUMMARY | 2024-10-26 10:04 | XMS_ITS | Encounter Summary ---
Author Organization [facility] Address [address] [place] [address] Care Team Providers Care Tool Grinder Name Role Phone Shaikh BUNNY Connelly Primary Care Provider [phone] Shaikh BUNNY Connelly Primary Care Provider [phone] Jose Chandler MD Primary Care Provider [phone] Ijeoma Drake WELDING MACHINE OPERATOR ELECTROSLAG Unavailable [phone] Unallocated, Noms Provider Primary Care Provi shayna Jose Chandler MD Primary Care Provider [phone] Za Wilkerson WELDING MACHINE OPERATOR ELECTROSLAG Unavailable [phone] Madhuri Banda DO Unavailable [phone] Encounter Details Date Type Department Care Team (Late st Contact Info) Description 03/28/2023 Orders Only [facility] [address] [place] [address] Shaikh Connelly MD [address] [place] [phone] Social History Tobacco Use Types Packs/Day Years [...] Description 11/02/2024 10:10 AM EDT Office Visit [facility] [address] [place] [phone] Kasi Bennett MD [address] [place] [address] 04/06/2025 1:15 PM EST Office Visit [facility] [address] [place] [address] Elida Monroy MD [address] [place] [address] documented as of this encounter [...] on filedocumented in this encounter Care Teams Tool Grinder Relationship Specialty Start Date End Date Shaikh Connelly MD PCP - General Internal Medicine 11/11/22 05/01/23 Shaikh Connelly MD [address] [place] [address] PCP - General Internal Medicine 05/02/23 09/23/23 Jose Chandler MD [address] [place] [address] PCP - General Family Medicine 09/24/23 11/25/23 Unallocated, Timur Hernandez MD [address] [place] [address] PCP - General Family Medicine 11/26/23 12/11/23 Jose Chandler MD [address] [place] [address] PCP - General Family Medicine 12/12/23 Ijeoma Drake NP [address] [place] [address] Nurse Practitioner Family Medicine 09/24/23 Za Wilkerson NP [address] [place] [address] Nurse Practitioner Neurology 04/21/24 Madhuri Banda DO [address] [place] [address] Referring Physician Neurology 04/21/24 documented as of this encounter
--- OUTSIDE RECORDS SUMMARY | 2024-10-26 10:04 | XMS_ITS | Encounter Summary ---
Author Organization [facility] Address [address] [place] [address] Care Team Providers Care Eye Clinic Manager Name Role Phone Shaikh BUNYN Connelly Primary Care Provider [phone] Jose Chandler MD Primary Care Provider [phone] Ijeoma Drake SECTION CUTTER Unavailable [phone] Unallocated, Timur Hernandez MD Primary Care Provi shayna Jose Chandler MD Primary Care Provider [phone] Za Wilkerson SECTION CUTTER Unavailable [phone] Madhuri Banda DO Unavailable [phone] Encounter Details Date Type Department Care Team (Late st Contact Info) Description 08/20/2023 Orders Only [facility] [address] [place] [address] Danny Christiansen MD [address] [place], [place] [address] Social History Tobacco Use Types Packs/Day Years [...] AM EDT Office Visit [facility] [address] [place] [address] Kasi Bennett MD [address] [place] [address] 04/06/2025 1:15 PM EST Office Visit [facility] [address] [place] [address] Elida Monroy MD [address] [place] [address] documented as of this encounter Procedures Procedure Name Priority Date/Time Associated Diagnosis Comments XR LUMBAR SPINE 2 OR 3V Routine 08/17/2023 9:20 AM EDT documented in this encounter Results * XR LUMBAR SPINE 2 OR 3V (08/17/2023 9:20 AM EDT) Anatomical Region Laterality Modality Radiographic Eliana ging us Danny Christiansen MD IMG XR PROCEDURES Final Resul t documented in this encounter Visit Diagnoses Not on filedocumented in this encounter Care Teams Eye Clinic Manager Relationship Specialty Start Date End Date Shaikh Connelly MD [address] [place] [address] PCP - General Internal Medicine 05/02/23 09/23/23 Jose Chandler MD [address] [place] [address] PCP - General Family Medicine 09/24/23 11/25/23 Unallocated, Timur Hernandez MD [address] [place], [place] [address] PCP - General Family Medicine 11/26/23 12/11/23 Jose Chandler MD [address] [place] [address] PCP - General Family Medicine 12/12/23 Ijeoma Drake NP [address] [place] [address] Nurse Practitioner Family Medicine 09/24/23 Za Wilkerson NP [address] [place] [address] Nurse Practitioner Neurology 04/21/24 Madhuri Banda DO [address] [place] [address] Referring Physician Neurology 04/21/24 documented as of this encounter
--- OUTSIDE RECORDS SUMMARY | 2024-10-26 10:04 | XMS_ITS | Encounter Summary ---
Author Organization [facility] Address [address] [place] [address] Care Team Providers Care Industrial Accountant Name Role Phone Shaikh BUNNY Connelly Primary Care Provider [phone] Jose Chandler MD Primary Care Provider [phone] Ijeoma Drake DISTRIBUTION AGENT Unavailable [phone] Unallocated, Timur Hernandez MD Primary Care Provi shayna Jose Chandler MD Primary Care Provider [phone] Za Wilkerson DISTRIBUTION AGENT Unavailable [phone] Madhuri Banda DO Unavailable [phone] Encounter Details Date Type Department Care [...] Endocrinology [address] [place] [address] Kasi Bennett MD [address] [place] [address] 04/06/2025 1:15 PM EST Office Visit [facility] [address] [place] [address] Elida Monroy MD [address] [place] [address] documented as of this encounter Procedures Procedure Name Priority Date/Time Associated Diagnosis Comments XR FOOT LT MIN 3V 07/24/2023 3:5 1 PM EDT documented in this encounter Results * XR FOOT LT MIN 3V (07/24/2023 3:51 PM EDT) Anatomical Region Laterality Modality Other 07/24/2023 3:51 PM EDT Narrative 07/24/2023 3:53 [place] [address] XRay Report Signed Patient: KARINA DE OLIVEIRA MR#: [id number] : 1965 Acct:[id number] Age/Sex: 57 / F ADM Date: 07/24/23 Loc: EC Attending Dr: Sussy Jefferson D.P.M. Ordering Physician: Sussy Jefferson D.P.M. Date of Service: 07/24/23 Procedure(s): XR foot LT min 3V Accession Number(s): [id number] cc: Shaikh Erica Connelly; Sussy Jefferson D.P.M. The [address] [address] Patient Name: KARINA DE OLIVEIRA MRN: [id number] date: 1965 Sex: F Assigned Patient Location: EC Current Patient Location: EC Accession/Order Number: [id number] Exam Date: 07/24/2023 13:37 Report Date: 07/24/2023 [...] Signed By: 07/24/23 1553 DD/ 1551 TD/TT: Test And Turn Up Technician: Procedure Note Radiology, Radiologist, MD - 07/24/2023 [place] [address] XRay Report Signed Patient: KARINA DE OLIVEIRA KMR#: [id number] : 1965Acct:[id number] Age/Sex: 57 / FADM Date: 07/24/23 Loc: EC Attending Dr: Sussy Jefferson D.P.M. Ordering Physician: Sussy Jefferson D.P.M. Date of Service: 07/24/23 Procedure(s): XR foot LT min 3V Accession Number(s): [id number] cc: Shaikh Erica Connelly; Sussy Jefferson D.P.M. The [address] [address] Patient Name: KARINA DE OLIVEIRA MRN: [id number] date: 1965 Sex: F Assigned Patient Location: Current Patient Location: Accession/Order Number: [id number] Exam Date: 07/24/2023 13:37 Report Date: 07/24/2023 [...] Ryan Goldman M.D. Signed By:07/24/23 1553 DD/ 155 TD/TT: Test And Turn Up Technician: Generic External Data Provider [facility] Final Result documented in this encounter Visit Diagnoses Not on filedocumented in this encounter Care Teams Industrial Accountant Relationship Specialty Start Date End Date Shaikh Connelly MD [address] [place] [address] PCP - General Internal Medicine 05/02/23 09/23/23 Jose Chandler MD [address] [place] [address] PCP - General Family Medicine 09/24/23 11/25/23 Unallocated, Timur Hernandez MD [address] [place] [address] PCP - General Family Medicine 11/26/23 12/11/23 Jose Chandler MD [address] [place] [address] PCP - General Family Medicine 12/12/23 Ijeoma Drake NP [address] [place] [address] Nurse Practitioner Family Medicine 09/24/23 Za Wilkerson NP [address] [place] [address] Nurse Practitioner Neurology 04/21/24 Madhuri Banda DO [address] [place] [address] Referring Physician Neurology 04/21/24 documented as of this encounter
--- OUTSIDE RECORDS SUMMARY | 2024-10-26 10:04 | XMS_ITS | Encounter Summary ---
Author Organization [facility] Address [address] [place] [address] Care Team Providers Care Director Of Occupational Health Name Role Phone Jose Chandler MD Primary Care Provider [phone] Ijeoma Drake MANAGER STEEL Unavailable [phone] Unallocated, Noms Provider Primary Care Provi shayna Jose Chandler MD Primary Care Provider [phone] Za Wilkerson MANAGER STEEL Unavailable [phone] Madhuri Banda DO Unavailable [phone] Encounter Details Date Type Department Care [...] week 10/02/2023 How often do you attend [facility] or anglican services? Patient declined 10/02/2023 Do you belong to any clubs o r organizations such as worship groups, unions, fraternal or athletic groups, or [...] Recorded Patient Health Questionnaire-2 Score 0 10/03/2023 [facility]at ional [facility] - Occupational Stress Questionnaire Answer Date [...] any time in the past 12 m onths, were you homeless or living in a longterm (including now)? Patient declined 10/02/2023 Comments Unknown [...] Office Visit [facility] [address] [place] [address] Kasi Bennett MD [address] [place] [address] 04/06/2025 1:15 PM EST Office Visit [facility] [address] [place] [address] Elida Monroy MD [address] [place] [address] documented as of this encounter Procedures Procedure Name Priority Date/Time Associated Diagnosis Comments XR FOOT LT MIN 3V 10/17/2023 6:5 8 AM EDT documented in this encounter Results * XR FOOT LT MIN 3V (10/17/2023 6:58 AM EDT) Anatomical Region Laterality Modality Other 10/17/2023 6:58 AM EDT Narrative 10/17/2023 7:01 AM EDT The [place] [id number] XRay Report Signed Patient: KARINA WEIR MR#: [id number] : 1965 Acct:[id number] Age/Sex: 57 / F ADM Date: 10/16/23 Loc: EC Attending Dr: Sussy Jefferson D.P.M. Ordering Physician: Sussy Jefferson D.P.M. Date of Service: 10/16/23 Procedure(s): XR foot LT min 3V Accession Number(s): [id number] cc: Shaikh Erica Connelly; Sussy Jefferson D.P.M. The [place] [address] Patient Name: KARINA WEIR MRN: [id number] date: 1965 Sex: F Assigned Patient Location: Current Patient Location: Accession/Order Number: [id number] Exam Date: 10/16/2023 11:20 Report Date: 10/17/2023 [...] Cortes M.D. Signed By: 10/17/23 0701 DD/ TD/TT: Relish Blender: Procedure Note Radiology, Radiologist, - 10/17/2023 [place] [address] XRay Report Signed Patient: KARINA WEIR KMR#: [id number] : 1965Acct:[id number] Age/Sex: 57 / FADM Date: 10/16/23 Loc: EC Attending Dr: Sussy Jefferson D.P.M. Ordering Physician: Sussy Jefferson D.P.M. Date of Service: 10/16/23 Procedure(s): XR foot LT min 3V Accession Number(s): [id number] cc: Shaikh Erica Connelly; Sussy Jefferson D.P.M. [place] [address] Patient Name: KARINA WEIR MRN: [id number] date: 1965 Sex: F Assigned Patient Location: Current Patient Location: Accession/Order Number: [id number] Exam Date: 10/16/2023 11:20 Report Date: 10/17/2023 [...] 06:58 Dictated By: Navid Cortes M.D. Signed By:10/17/23700 DD/ TD/TT: Relish Blender: us Generic External Data Provider [facility] Final Result documented in this encounter Visit Diagnoses Not on filedocumented in this encounter Care Teams Director Of Occupational Health Relationship Specialty Start Date End Date Jose Chandler MD PCP - General Family Medicine 09/24/23 11/25/23 Unallocated, Timur Hernandez MD [address] [facility] [place] [address] PCP - General Family Medicine 11/26/23 12/11/23 Jose Chandler MD PCP - General Family Medicine 12/12/23 Ijeoma Drake NP Nurse Practitioner Family Medicine 09/24/23 Za Wilkerson NP [address] [place] [address] Nurse Practitioner Neurology 04/21/24 Madhuri Banda DO [address] [place] [address] Referring Physician Neurology 04/21/24 documented as of this encounter
--- OUTSIDE RECORDS SUMMARY | 2024-10-26 10:04 | XMS_ITS | Encounter Summary ---
Author Organization [facility] Address [address] [place] [address] Care Team Providers Care Boat Officer Name Role Phone Shaikh BUNNY Connelly Primary Care Provider [phone] Jose Chandler MD Primary Care Provider [phone] Ijeoma Drake FIELD HAND Unavailable [phone] Unallocated, Timur Hernandez MD Primary Care Provi shayna Jose Chandler MD Primary Care Provider [phone] Za Wilkerson FIELD HAND Unavailable [phone] Madhuri Banda DO Unavailable [phone] Encounter Details Date Type Department Care [...] Endocrinology [address] [place] [address] Kasi Bennett MD [address] [place] [address] 04/06/2025 1:15 PM EST Office Visit [facility] [address] [place] [address] Elida Monroy MD [address] [place] [address] documented as of this encounter Procedures Procedure Name Priority Date/Time Associated Diagnosis Comments XR FOOT LT MIN 3V 09/04/2023 7:4 9 AM EDT documented in this encounter Results * XR FOOT LT MIN 3V (09/04/2023 7:49 AM EDT) Anatomical Region Laterality Modality Other 09/04/2023 7:49 AM EDT Narrative 09/04/2023 7:52 [place] [address] XRay Report Signed Patient: KARINA DE OLIVEIRA MR#: [id number] : 1965 Acct:[id number] Age/Sex: 57 / F ADM Date: 09/03/23 Loc: EC Attending Dr: Sussy Jefferson D.P.M. Ordering Physician: Sussy Jefferson D.P.M. Date of Service: 09/03/23 Procedure(s): XR foot LT min 3V Accession Number(s): [id number] cc: Shaikh Erica Connelly; Sussy Jefferson D.P.M. The [address] [address] Patient Name: KARINA DE OLIVEIRA MRN: [id number] date: 1965 Sex: F Assigned Patient Location: EC Current Patient Location: Accession/Order Number: [id number] Exam Date: 09/03/2023 15:15 Report Date: 09/04/2023 [...] Signed By: 09/04/23 0752 DD/ 0749 TD/TT: Fast Food Crew Lead: Procedure Note Radiology, Radiologist, MD - 09/04/2023 [place] [address] XRay Report Signed Patient: KARINA DE OLIVEIRA KMR#: [id number] : 1965Acct:[id number] Age/Sex: 57 / FADM Date: 09/03/23 Loc: EC Attending Dr: Sussy Jefferson D.P.M. Ordering Physician: Sussy Jefferson D.P.M. Date of Service: 09/03/23 Procedure(s): XR foot LT min 3V Accession Number(s): [id number] cc: Shaikh Erica Connelly; Sussy Jefferson D.P.M. The [place] [address] Patient Name: KARINA DE OLIVEIRA MRN: [id number] date: 1965 Sex: F Assigned Patient Location: Current Patient Location: Accession/Order Number: [id number] Exam Date: 09/03/2023 15:15 Report Date: 09/04/2023 [...] M.D. Signed By:09/04/23 0752 DD/ 0749 TD/TT: Fast Food Crew Lead: Generic External Data Provider [facility] Final Result documented in this encounter Visit Diagnoses Not on filedocumented in this encounter Care Teams Boat Officer Relationship Specialty Start Date End Date Shaikh Connelly MD [address] [place] [address] PCP - General Internal Medicine 05/02/23 09/23/23 Jose Chandler MD [address] [place] [address] PCP - General Family Medicine 09/24/23 11/25/23 Unallocated, Noms MD David [address] [place] [address] PCP - General Family Medicine 11/26/23 12/11/23 Jose Chandler MD [address] [place] [address] PCP - General Family Medicine 12/12/23 Ijeoma Drake NP [address] [place] [address] Nurse Practitioner Family Medicine 09/24/23 Za Wilkerson NP [address] [place] [address] Nurse Practitioner Neurology 04/21/24 Madhuri Banda DO [address] [place] [address] Referring Physician Neurology 04/21/24 documented as of this encounter
--- OUTSIDE RECORDS SUMMARY | 2024-10-26 10:04 | XMS_ITS | Encounter Summary ---
Author Organization [facility] Address [address] [place] [address] Care Team Providers Care Power Plant Supervisor Name Role Phone Ijeoma Drake HOOF AND SHOE INSPECTOR Unavailable [phone] Jose Chandler MD Primary Care Provider [phone] Za Wilkerson HOOF AND SHOE INSPECTOR Unavailable [phone] Madhuri Banda DO Unavailable [phone] Encounter Details Date Type Department Care Team (Late Contact Info) Description 12/23/2023 Clinisync Result Encounter [facility] External Department Unsolicited [...] often do you attend chur ch or gnosticist services? Patient declined 10/02/2023 Do you belong to any clubs o r organizations such as protestant groups, unions, fraternal or athletic groups, or [...] Recorded Patient Health Questionnaire-2 Score 0 10/03/2023 [facility] - Occupational Stress [...] any time in the past 12 [facility], were you homeless or living in a care home (including now)? Patient declined 10/02/2023 Comments Unknown [...] [facility] [address] [place] [address] Kasi Bennett MD [address] [place] [address] 04/06/2025 1:15 PM EST Office Visit [facility] [address] [place] [address] Elida Monroy MD [address] [place] [address] documented as of this encounter Procedures Procedure Name Priority Date/Time Associated Diagnosis Comments XR FOOT LT MIN 3V 12/23/2023 7:3 9 AM EST documented in this encounter Results * XR FOOT LT MIN 3V (12/23/2023 7:39 AM EST) Anatomical Region Laterality Modality Other 12/23/2023 7:39 AM EST Narrative 12/23/2023 7:41 AM EST The [address] [address] XRay Report Signed Patient: KARINA WEIR MR#: [id number] : 1965 Acct:[id number] Age/Sex: 58 / F ADM Date: 12/18/23 Loc: RAD Attending Dr: Sussy Jefferson D.P.M. Ordering Physician: Sussy Jefferson D.P.M. Date of Service: 12/18/23 Procedure(s): XR foot LT min 3V Accession Number(s): [id number] cc: Shaikh Erica Connelly; Sussy Jefferson D.P.M. The [place] [address] Patient Name: KARINA WEIR MRN: [facility]:[id number] date: 1965 Sex: F Assigned Patient Location: RAD Current Patient Location: PT Accession/Order Number: [id number] Exam Date: 12/18/2023 10:58 Report Date: 12/23/2023 [...] Dictated By: Ryan Goldman M.D. Signed By: 12/23/23 0741 DD/ 0739 TD/TT: Paving Rammer: Procedure Note Radiology, Radiologist, MD - 12/23/2023 [place] [address] XRay Report Signed Patient: KARINA WEIR KMR#: [id number] : 1965Acct:[id number] Age/Sex: 58 / FADM Date: 12/18/23 Loc: RAD Attending Dr: Sussy Jefferson D.P.M. Ordering Physician: Sussy Jefferson D.P.M. Date of Service: 12/18/23 Procedure(s): XR foot LT min 3V Accession Number(s): [id number] cc: Shaikh Erica Connelly; Sussy Jefferson D.P.M. [address] [address] Patient Name: KARINA WEIR MRN: [id number] date: 1965 Sex: F Assigned Patient Location: RAD Current Patient Location: PT Accession/Order Number: [id number] Exam Date: 12/18/2023 10:58 Report Date: 12/23/2023 07:39 At the request of: SUSSY JEFFERSON Procedure: XR foot LT min 3V PROCEDURE: XR foot LT min 3V COMPARISON: 10/16/2023 HISTORY: Left Foot Pain FINDINGS: BONES:Stable healing angulated fracture distal diaphysis of the second metatarsal with interval increase in bone formation and partial bonybridging. Stable lateral subluxation of the metatarsals in relation to the tarsalbones. Stable fusion first tarsometatarsal joint. SOFT TISSUES:Negative. No visible soft tissue swelling. EFFUSION:None visible. OTHER: Negative. XR/XR foot LT min 3V IMPRESSION: Stable healing second metatarsal fracture Electronically authenticated by: RYAN GOLDMAN Date: 12/23/2023 07:39 Dictated By: Ryan Goldman M.D. Signed By:12/23/23740 DD/ TD/TT: Paving Rammer: us Generic External Data Provider [facility] Final Result documented in this encounter Visit Diagnoses Not on filedocumented in this encounter Care Teams Power Plant Supervisor Relationship Specialty Start Date End Date Jose Chandler MD PCP - General Family Medicine 12/12/23 Ijeoma Drake NP Nurse Practitioner Family Medicine 09/24/23 Za Wilkerson NP Nurse Practitioner Neurology 04/21/24 Madhuri Banda DO [address] [place] [address] Referring Physician Neurology 04/21/24 documented as of this encounter
--- OUTSIDE RECORDS SUMMARY | 2024-10-26 10:04 | XMS_ITS | Encounter Summary ---
Author Organization [facility] Address [address] [place] [address] Care Team Providers Care Etcher Hand Name Role Phone Shaikh BUNNY Connelly Primary Care Provider [phone] Jose Chandler MD Primary Care Provider [phone] Ijeoma Drake MANAGER PHARMACEUTICAL Unavailable [phone] Unallocated, Timur Hernandez MD Primary Care Provi shayna Jose Chandler MD Primary Care Provider [phone] Za Wilkerson MANAGER PHARMACEUTICAL Unavailable [phone] Madhuri Banda DO Unavailable [phone] Encounter Details Date Type Department Care [...] Endocrinology [address] [place] [address] Kasi Bennett MD [address] [place] [address] 04/06/2025 1:15 PM EST Office Visit [facility] [address] [place] [address] Elida Monroy MD [address] [place] [address] documented as of this encounter Procedures Procedure Name Priority Date/Time Associated Diagnosis Comments XR FOOT LT MIN 3V 08/14/2023 3:3 0 PM EDT documented in this encounter Results * XR FOOT LT MIN 3V (08/14/2023 3:30 PM EDT) Anatomical Region Laterality Modality Other 08/14/2023 3:30 PM EDT Narrative 08/14/2023 3:32 [place] [address] XRay Report Signed Patient: KARINA DE OLIVEIRA MR#: [id number] : 1965 Acct:[id number] Age/Sex: 57 / F ADM Date: 08/13/23 Loc: EC Attending Dr: Sussy Jefferson D.P.M. Ordering Physician: Sussy Jefferson D.P.M. Date of Service: 08/13/23 Procedure(s): XR foot LT min 3V Accession Number(s): [id number] cc: Shaikh Erica Connelly; Sussy Jefferson D.P.M. The [address] [address] Patient Name: KARINA DE OLIVEIRA MRN: [id number] date: 1965 Sex: F Assigned Patient Location: EC Current Patient Location: EC Accession/Order Number: [id number] Exam Date: 08/13/2023 14:05 Report Date: 08/14/2023 [...] Signed By: 08/14/23 1532 DD/ 1530 TD/TT: Supply Chain Consultant: Procedure Note Radiology, Radiologist, MD - 08/14/2023 [place] [address] XRay Report Signed Patient: KARINA DE OLIVEIRA KMR#: [id number] : 1965Acct:[id number] Age/Sex: 57 / FADM Date: 08/13/23 Loc: EC Attending Dr: Sussy Jefferson D.P.M. Ordering Physician: Sussy Jefferson D.P.M. Date of Service: 08/13/23 Procedure(s): XR foot LT min 3V Accession Number(s): [id number] cc: Shaikh Erica Connelly; Sussy Jefferson D.P.M. The [place] [id number] Patient Name: KARINA DE OLIVEIRA MRN: [id number] date: 1965 Sex: F Assigned Patient Location: Current Patient Location: EC Accession/Order Number: [id number] Exam Date: 08/13/2023 14:05 Report Date: 08/14/2023 15:30 At the request of: SUSSY YODERGEORGE Procedure: XR foot LT min 3V PROCEDURE: [...] M.D. Signed By:08/14/23 1532 DD/ 1530 TD/TT: Supply Chain Consultant: us Generic External Data Provider [facility] Final Result documented in this encounter Visit Diagnoses Not on filedocumented in this encounter Care Teams Etcher Hand Relationship Specialty Start Date End Date Shaikh Connelly MD [address] [place] [address] PCP - General Internal Medicine 05/02/23 09/23/23 Jose Chandler MD [address] [place] [address] PCP - General Family Medicine 09/24/23 11/25/23 Unallocated, Timur Hernandez MD [address] [place] [address] PCP - General Family Medicine 11/26/23 12/11/23 Jose Chandler MD [address] [place] [address] PCP - General Family Medicine 12/12/23 Ijeoma Drake NP [address] [place] [address] Nurse Practitioner Family Medicine 09/24/23 Za Wilkerson NP [address] [place] [address] Nurse Practitioner Neurology 04/21/24 Madhuri Banda DO [address] [place] [address] Referring Physician Neurology 04/21/24 documented as of this encounter
--- OUTSIDE RECORDS SUMMARY | 2024-10-26 10:04 | XMS_ITS | Encounter Summary ---
Author Organization [facility] Address [address] [place] [address] Care Team Providers Care Admitting Officer Name Role Phone Shaikh BUNNY Connelly Primary Care Provider [phone] Jose Chandler MD Primary Care Provider [phone] Ijeoma Drake HOOP FLARING MACHINE OPERATOR HELPER Unavailable [phone] Unallocated, Timur Provider Primary Care Provi shayna Jose Chandler MD Primary Care Provider [phone] Za Wilkerson HOOP FLARING MACHINE OPERATOR HELPER Unavailable [phone] Madhuri Banda DO Unavailable [phone] Encounter Details Date Type Department Care [...] [facility] [address] [place] [address] Kasi Bennett MD [address] [place] [address] 04/06/2025 1:15 PM EST Office Visit [facility] [address] [place] [address] Elida Monroy MD [address] [place] [address] documented as of this encounter Procedures Procedure Name Priority Date/Time Associated Diagnosis Comments XR FOOT LT MIN 3V 07/03/2023 2:0 4 PM EDT documented in this encounter Results * XR FOOT LT MIN 3V (07/03/2023 2:04 PM EDT) Anatomical Region Laterality Modality Other 07/03/2023 2:04 PM EDT Narrative 07/03/2023 2:07 PM EDT [address] [address] XRay Report Signed Patient: KARINA WEIR MR#: [id number] : 1965 Acct:[id number] Age/Sex: 57 / F ADM Date: 07/03/23 Loc: EC Attending Dr: Sussy Jefferson D.P.M. Ordering Physician: Sussy Jefferson D.P.M. Date of Service: 07/03/23 Procedure(s): XR foot LT min 3V Accession Number(s): [id number] cc: Shaikh Erica Connelly; Sussy Jefferson D.P.M. [facility] [place] [address] Patient Name: KARINA WEIR MRN: [id number] date: 1965 Sex: F Assigned Patient Location: EC Current Patient Location: EC Accession/Order Number: [id number] Exam Date: 07/03/2023 10:54 Report Date: 07/03/2023 [...] Signed By: 07/03/23 1407 DD/ 1404 TD/TT: Director Home Health: Procedure Note Radiology, Radiologist, MD - 07/03/2023 [place] [address] XRay Report Signed Patient: KARINA WEIR KMR#: [id number] : 1965Acct:[id number] Age/Sex: 57 / FADM Date: 07/03/23 Loc: EC Attending Dr: Sussy Jefferson D.P.M. Ordering Physician: Sussy Jefferson D.P.M. Date of Service: 07/03/23 Procedure(s): XR foot LT min 3V Accession Number(s): [id number] cc: Shaikh Erica Connelly; Sussy Jefferson D.P.M. [facility] [place] [address] Patient Name: KARINA WEIR MRN: [id number] date: 1965 Sex: F Assigned Patient Location: Current Patient Location: Accession/Order Number: [id number] Exam Date: 07/03/2023 10:54 Report Date: 07/03/2023 [...] Ryan Goldman M.D. Signed By:07/03/23 1407 DD/ TD/TT: Director Home Health: Generic External Data Provider [facility] Final Result documented in this encounter Visit Diagnoses Not on filedocumented in this encounter Care Teams Admitting Officer Relationship Specialty Start Date End Date Shaikh Connelly MD [address] [place] [address] PCP - General Internal Medicine 05/02/23 09/23/23 Jose Chandler MD [address] [place] [address] PCP - General Family Medicine 09/24/23 11/25/23 Unallocated, Noms MD David [address] [facility] [place] [address] PCP - General Family Medicine 11/26/23 12/11/23 Jose Chandler MD [address] [place] [address] PCP - General Family Medicine 12/12/23 Ijeoma Drake NP [address] [place] [address] Nurse Practitioner Family Medicine 09/24/23 Za Wilkerson NP [address] [place] [address] Nurse Practitioner Neurology 04/21/24 Madhuri Banda DO [address] [place] [address] Referring Physician Neurology 04/21/24 documented as of this encounter
--- OUTSIDE RECORDS SUMMARY | 2024-10-26 10:04 | XMS_ITS | Clinical Summary ---
Author Organization [facility] Address [address] [place] [address] Care Team Providers Care Assistant Reading Teacher Name Role Phone Ijeoma Drake RETURN TO VENDOR Unavailable [phone] Jose Chandler MD Primary Care Provider [phone] Za Wilkerson RETURN TO VENDOR Unavailable [phone] Madhuri Banda DO Unavailable [phone] Allergies No known active allergies Medications rizatriptan (Maxalt) 10 MG tabletIndications :Migraine with aura and without status migrainosus, not intractable Take 1 tablet (10 mg) by mouth 1 (one) time if needed for migraine May repeat in 2 hours if unresolved. Do not exceed 30 mg in 24 hours. 9 tablet 024 Active Continuous Glucose Inkjet Operator (Dexcom G7 Inkjet Operator) deviceIndications :Type 2 diabetes mellitus with diabetic microalbuminuria, without long-term current use of insulin ([facility]) 1 each continuously 1 each 025 Active Semaglutide, 2 MG/DOSE, (Ozempic, 2 MG/DOSE,) 8 MG/3ML solution pen-injectorIndic ations:Type 2 diabetes mellitus with diabetic microalbuminuria, without long-term current use of insulin ([facility]) Inject 2 mg under the skin every 7 (seven) days 9 mL 1 025 Active colchicine 0.6 MG tabletIndications :Chronic gout of multiple sites, unspecified cause TAKE 2 TABLETS BY MOUTH AT ONSET OF ACUTE GOUT, MAY TAKE 1 TABLET IN 1 HOURS. NO MORE THAN 3 TABLETS DAILY 15 tablet 1 025 Active oxyCODONE-acetami nophen (Percocet) 5-325 MG tablet Take 1 tablet by mouth Daily as needed Active allopurinol (Zyloprim) 300 MG tabletIndications :Chronic gout of multiple sites, unspecified cause Take 1 tablet (300 mg) by mouth Daily 90 tablet 025 2024 Active famotidine (Pepcid) 20 MG tabletIndications :Gastroesophageal reflux disease without esophagitis Take 1 tablet (20 mg) by mouth in the morning and 1 tablet (20 mg) before bedtime. 180 tablet 2024 Active furosemide (Lasix) 20 MG tabletIndications :Bilateral lower extremity edema Take 1 tablet (20 mg) by mouth if needed (swelling in legs) Take 20 mg by mouth if needed 90 tablet 2024 Active divalproex (Depakote) 500 MG EC tabletIndications :Migraine with aura and without status migrainosus, not intractable Take 1 tablet (500 mg) by mouth in the morning and 1 tablet (500 mg) before bedtime. Do not crush, chew, or split. 180 tablet 2025 Active metFORMIN (Glucophage) 500 MG tabletIndications :Type 2 diabetes mellitus with diabetic microalbuminuria, without long-term current use of insulin (HCC) Take 1 tablet (500 mg) by mouth in the morning and 1 tablet (500 mg) in the evening. Take with meals. 180 tablet 2024 Active alendronate (Fosamax) 70 MG tabletIndications :Osteoporosis, unspecified osteoporosis type, unspecified pathological fracture presence Take 1 tablet (70 mg) by mouth every 7 (seven) days Take in the morning with a full glass of water, on an empty stomach, and do not take anything else by mouth or lie down for the next 30 min. 12 tablet 2025 Active pregabalin (Lyrica) 75 MG capsuleIndication s:Diabetic polyneuropathy associated with type 2 diabetes mellitus (HCC) Take 1 capsule (75 mg) by mouth in the morning and 1 capsule (75 mg) in the evening and 1 capsule (75 mg) before bedtime. 90 capsule 2 08/14/2 025 Active baclofen (Lioresal) 20 MG tabletIndications :Lumbar back pain Take 1 tablet (20 mg) by mouth 3 (three) times a day as needed for muscle spasms 90 tablet 1 025 2024 Active rosuvastatin (Crestor) 20 MG tabletIndications :Other hyperlipidemia Take 1 tablet (20 mg) by mouth in the evening 90 tablet 1 025 2024 Active rosuvastatin (Crestor) 20 MG tabletIndications :Other hyperlipidemia Take 1 tablet (20 mg) by mouth Daily 90 tablet 1 025 2024 Discontinued(R eorder) diclofenac (Voltaren) 75 MG EC tabletIndications :Lumbar back pain Take 1 tablet (75 mg) by mouth in the morning and 1 tablet (75 mg) before bedtime. Do not crush, chew, or split. 180 tablet 1 025 2024 baclofen (Lioresal) 20 MG tabletIndications :Lumbar back pain Take 1 tablet (20 mg) by mouth 3 (three) times a day as needed for muscle spasms 90 tablet 1 025 2024 Discontinued Active Problems Problem Noted Date Diagnosed Date Low serum parathyroid hormone (PTH) 06/03/2024 Body mass index (BMI) 39.0-39.9, adult Cigarette nicotine dependence without complicati on 05/19/2024 Assessment & Plan (08/20/2024 6:27 AM EDT): The patient has been advised of the risks of continued smoking: stroke, KS, all forms of cancer, lung disease, and [...] of the risks of continued smoking: stroke, KS, all forms of cancer, lung disease, and [...] for JANETT- Referral sent to [facility] Lumbar back pain 08/22/2023 Assessment & Plan [...] follow up after recent hospital admission at [facility] Reviewed hospital records. Answered patient's questions and concerns related to hospital stay/medication changes/results of testing. Back pain is better. C/w baclofen as needed. Has an apt with pain clinic Assessment & Plan (07/04/2023 2:15 PM EDT): Patient here for follow up after recent hospital admission at [facility] Reviewed hospital records. Answered patient's questions and [...] Encounters Date Type Department Care Team Description 10/05/2024 Refill [facility] [address] [place] [address] Jose Chandler MD Other hyperlipidemia 09/29/2024 Refill [facility] [address] [place] [address] Ameena Vera NP Lumbar back pain 09/28/2024 Telephone [facility] [address] [place] [address] Ameena Vera, RETURN TO VENDOR 09/24/2024 Telephone [facility] [address] [place] [address] Ameena Vera, RETURN TO VENDOR 09/23/2024 Refill [facility] [address] [place] [address] Ameena Vera, RONALDO Diabetic polyneuropathy associated with type 2 diabetes mellitus (HCC) 09/22/2024 Telephone [facility] [address] [place] [address] Ameena Vera, RETURN TO VENDOR 09/22/2024 Abstract [facility] [address] [place] [address] Ameena Vera, RONALDO 09/21/2024 Orders Only [facility] [address] [place] [address] Aramis Live MD 09/21/2024 Abstract [facility] [address] [place] [address] Ameena Vera, RONALDO 09/21/2024 Abstract [facility] [address] [place] [address] Ameena Vera, RONALDO 08/20/2024 10:30 AM EDT Office Visit [facility] [address] [place] [address] Ameena Vera, RONALDO Type 2 diabetes mellitus with diabetic microalbuminuria, without long-term current use of insulin (HCC) (Primary Dx); Essential hypertension; Morbid (severe) obesity due to excess calories (E66.01); Cigarette nicotine dependence without complication; Chronic gout of multiple sites, unspecified cause; Gastroesophageal reflux disease without esophagitis; Bilateral lower extremity edema 08/20/2024 Refill [facility] [address] [place] [address] Ameena Vera, RONALDO Bilateral lower extremity edema; Migraine with aura and without status migrainosus, not intractable ; Type 2 diabetes mellitus with diabetic microalbuminuria, without long-term current use of insulin ([facility]); Osteoporosis, unspecified osteoporosis type, unspecified pathological fracture presence 08/17/2024 Travel 08/05/2024 [facility] [address] [facility] [place] [address] Ameena Vera, RETURN TO VENDOR Type 2 diabetes mellitus with diabetic microalbuminuria, without long-term current use of insulin ([facility]) 08/05/2024 Refill [facility] [address] [facility] [place] [address] Ameena Vera, RETURN TO VENDOR Chronic gout of multiple sites, unspecified cause (Primary Dx) 08/05/2024 Telephone [facility] [address] [place] [address] Ameena Vera, RETURN TO VENDOR 08/02/2024 Refill [facility] [address] [facility] [place] [address] Jose Chandler MD Lumbar back pain 07/29/2024 2:00 PM EDT Office Visit [facility] [place] [facility] [address] [place] [address] Kasi Bennett MD Hypercalcemia (Primary Dx); Low serum parathyroid hormone (PTH); Vitamin D deficiency 07/29/2024 Bamboo flowsheet [facility] [place] [facility] [address] [place] [address] Kasi Bennett MD 07/29/2024 Travel 07/26/2024 Refill [facility] [address] [facility] [place] [address] Ameena Vera NP Lumbar back pain from Last 3 Months Family History Medical [...] week 10/02/2023 How often do you attend [facility] or adventism services? Patient declined 10/02/2023 Do you belong to any clubs o r organizations such as islam groups, unions, fraternal or athletic groups, or [...] Recorded Patient Health Questionnaire-2 Score 0 10/03/2023 [facility] - Occupational Stress Questionnaire Answer Date Recorded [...] in the past 12 m [facility], were you homeless or living in a assisted (including now)? Patient declined 10/02/2023 Comments Unknown [...] [facility] [address] [place] [address] Kasi Bennett MD [address] [place] [address] 04/06/2025 1:15 PM EST Office Visit [facility] [address] [place] [address] Elida Monroy MD [address] [place] [address] Health Maintenance Due Date Last [...] Name Priority Date/Time Associated Diagnosis Comments MR BRAIN WO CONTRAST Routine 09/21/2024 6:09 PM EDT XR CHEST 1 VIEW Routine 09/21/2024 6:06 PM EDT POCT GLYCOSYLATED HEMOGLOBIN (HGB A1C) Routine 08/20/2024 10:56 AM EDT Type 2 diabetes mellitus with diabetic microalbuminuria, without long-term current use of insulin (HCC) MM TOMOSYNTHESIS SCREENING BI 03/18/2024 2:54 PM EST LAB COLOGUARD COLON CANCER SCREEN Routine 03/28/2023 7:20 PM EST from Last 3 Months or Most Recently Relevant to Health Maintenance Results * MR brain wo contrast (09/21/2024 6:09 PM EDT) Anatomical Region Laterality Modality Brain Magnetic Resonan ce us Aramis Live MD [facility] MRI PROCEDURES Final Result * XR chest 1 view (09/21/2024 6:06 PM EDT) Anatomical Region Laterality Modality Chest Radiographic Eliana ging us Aramis Live MD [facility] XR PROCEDURES Final Result * (ABNORMAL) POCT glycosylated hemoglobin (Hb A1C) docked device (08/20/2024 10:56 AM EDT) Hemoglobin A1C 6.4 Blood Venous blood specimen / Unknown 08/20/2024 10:56 AM EDT us Ameena Vera NP POINT OF CARE TEST ENTER/EDIT O RDERABLES Final Result * MM TOMOSYNTHESIS SCREENING BI (03/18/2024 2:54 PM EST) Anatomical Region Laterality Modality Other 03/18/2024 2:54 PM EST Narrative 03/18/2024 2:54 PM EST The [address] [address] Mammography Report Signed Patient: KARINA DE OLIVEIRA MR#: [id number] : 1965 Acct:[id number] Age/Sex: 58 / F ADM Date: 03/18/24 Loc: MAMMO Attending Dr: RADHA TRIVEDI Ordering Physician: RDAHA TRIVEDI Results: Date of Service: 03/18/24 Follow Up: Procedure(s): MM tomosynthesis screening BI Accession Number(s): [id number] cc: LOCO DRAKE SUSAN Patient Name: KARINA DE OLIVEIRA MR#: [id number] : 1965 Exam Date: 03/18/2024 Ordering Doctor: DR RADHA TRIVEDI CN RADIOLOGY REPORT PROCEDURE: MM TOMOSYNTHESIS SCREENING BI [...] skin cancer at age 69. LOCATION: The [facility] BREAST COMPOSITION: There are scattered areas [...] Dictated By: Navid Cortes M.D. Signed By: 03/18/241453 DD/ 53 TD/TT: Trackwalker: Procedure Note Radiology, Radiologist, MD - 03/18/2024 [place] [address] Mammography Report Signed Patient: KARINA DE OLIVEIRA KMR#: [id number] : 1965Acct:[id number] Age/Sex: 58 / FADM Date: 03/18/24 Loc: MAMMO Attending Dr: RADHA TRIVEDI Ordering Physician: Amy TRIVEDIults: Date of Service: 03/18/24Follow Up: Procedure(s): MM tomosynthesis screening BI Accession Number(s): [id number] cc: LOCO DRAKE SUSAN Patient Name: KARINA DE OLIVEIRA MR#: [id number] : 1965 Exam Date: 03/18/2024 Ordering Doctor: DR RADHA TRIVEDI [facility] RADIOLOGY REPORT PROCEDURE: MM TOMOSYNTHESIS SCREENING BI COMPARISON: MM TOMOSYNTHESIS SCREENING BI, 03/20/2023. MG MAMM [id number] SALINA CAD, 01/31/2021. MG MAMM SCREEN SALINA [...] skin cancer at age 69. LOCATION: The [facility] BREAST COMPOSITION: There are scattered areas [...] M.D. Signed By:03/18/24 1454 DD/ 1454 TD/TT: Trackwalker: us Generic External Data Provider [facility] Final Result * Cologuard?? colon cancer screening (03/28/2023 7:20 PM EST) Stool us Shaikh Maricel [facility] ORDER RUTH ANN Final Result from Last 3 Months or Most Recently Relevant to Health Maintenance Insurance [employer] Care Teams Assistant Reading Teacher Relationship Specialty Start Date End Date Jose Chandler MD PCP - General Family Medicine 12/12/23 Ijeoma Drake NP Nurse Practitioner Family Medicine 09/24/23 Za Wilkerson NP Nurse Practitioner Neurology 04/21/24 Madhuri Banda DO [address] [place] [address] Referring Physician Neurology 04/21/24
--- OUTSIDE RECORDS SUMMARY | 2024-10-26 10:04 | XMS_ITS | Encounter Summary ---
Author Organization [facility] Address [address] [place] [address] Care Team Providers Care Cognos Report Developer Name Role Phone Ijeoma Drake SALES SUPPORT REPRESENTATIVE Unavailable [phone] Jose Chandler MD Primary Care Provider [phone] Za Wilkerson SALES SUPPORT REPRESENTATIVE Unavailable [phone] Madhuri Banda DO Unavailable [phone] Encounter Details Date Type Department Care Team (Late st Contact Info) Description 06/03/2024 Orders Only [facility] [address] [facility] [place] [address] Ameena Vera NP [address] [facility] [place] [address] Social History Tobacco Use Types Packs/Day Years [...] 10/02/2023 How often do you attend chur or quaker services? Patient declined 10/02/2023 Do you belong to any clubs o r organizations such as yazidism groups, unions, fraternal or athletic groups, or [...] Recorded Patient Health Questionnaire-2 Score 0 10/03/2023 [facility] - [facility]ational Stress Questionnaire Answer Date Recorded [...] any time in the past 12 m [facility], were you homeless or living in a [...] [facility] [address] [place] [address] Kasi Bennett MD [address] [place] [address] 04/06/2025 1:15 PM EST Office Visit [facility] [address] [place] [address] Elida Monroy MD [address] [place] [address] documented as of this encounter Visit Diagnoses Not on filedocumented in this encounter Care Teams Cognos Report Developer Relationship Specialty Start Date End Date Jose Chandler MD PCP - General Family Medicine 12/12/23 Ijeoma Drake NP Nurse Practitioner Family Medicine 09/24/23 Za Wilkerson NP Nurse Practitioner Neurology 04/21/24 Madhuri Banda DO [address] [place] [address] Referring Physician Neurology 04/21/24 documented as of this encounter
--- OUTSIDE RECORDS SUMMARY | 2024-10-26 10:04 | XMS_ITS | Encounter Summary ---
Author Organization [facility] Address [address] [place] [address] Care Team Providers Care Supplier Relationship Director Name Role Phone Ijeoma Drake DRY HOUSE TENDER Unavailable [phone] Jose Chandler MD Primary Care Provider [phone] Za Wilkerson DRY HOUSE TENDER Unavailable [phone] Madhuri Banda DO Unavailable [phone] Reason for Visit * Reason Comments Med Refill Encounter Details Date Type Department Care Team (Late st Contact Info) Description 05/06/2024 Refill [facility] [address] [facility] [place] [address] Ameena Vera NP [address] [place] [address] Bilateral lower extremity edema Social History Tobacco [...] often do you attend chur ch or voodoo services? Patient declined 10/02/2023 Do you belong to any clubs o r organizations such as latter-day groups, unions, fraternal or athletic groups, or [...] Recorded Patient Health Questionnaire-2 Score 0 10/03/2023 [facility] ional Health - [...] any time in the past 12 m [facility], were you homeless or living in a usp (including now)? Patient declined 10/02/2023 Comments Unknown [...] EDT Office Visit [facility] [address] [place] [address] Kasi Bennett MD [address] [place] [address] 04/06/2025 1:15 PM EST Office Visit [facility] [address] [place] [address] Elida Monroy MD [address] [place] [address] documented as of this encounter Visit Diagnoses Diagnosis Bilateral lower extremity edema documented in this encounter Care Teams Supplier Relationship Director Relationship Specialty Start Date End Date Jose Chandler MD PCP - General Family Medicine 12/12/23 Ijeoma Drake NP Nurse Practitioner Family Medicine 09/24/23 Za Wilkerson NP Nurse Practitioner Neurology 04/21/24 Madhuri Banda DO [address] [place] [address] Referring Physician Neurology 04/21/24 documented as of this encounter
--- OUTSIDE RECORDS SUMMARY | 2024-10-26 10:04 | XMS_ITS | Encounter Summary ---
Author Organization [facility] Address [address] [place] [address] Care Team Providers Care Retail Stocker Name Role Phone Shaikh BUNNY Connelly Primary Care Provider [phone] Jose Chandler MD Primary Care Provider [phone] Ijeoma Drake QUALITY MANAGEMENT NURSE Unavailable [phone] Unallocated, Timur Hernandez MD Primary Care Provi shayna Jose Chandler MD Primary Care Provider [phone] Za Wilkerson QUALITY MANAGEMENT NURSE Unavailable [phone] Madhuri aBnda DO Unavailable [phone] Encounter Details Date Type Department Care Team (Late st Contact Info) Description 07/03/2023 Orders Only [facility] [address] [place] [address] [facility] Jefferson Social History Tobacco Use Types [...] [facility] [address] [place] [address] Kasi Bennett MD [address] [place] [address] 04/06/2025 1:15 PM EST Office Visit [facility] [address] [place] [address] Elida Monroy MD [address] [place] [address] documented as of this encounter Procedures Procedure Name Priority Date/Time Associated Diagnosis Comments XR FOOT 3+ VIEWS LEFT Routine 07/03/2023 2:33 PM EDT documented in this encounter Results * XR foot 3+ views left (07/03/2023 2:33 PM EDT) Anatomical Region Laterality Modality Lower Extremities, Foot Left Radiogra phic Imaging Carroll Jefferson IM XR PROCEDURES Final Resul t documented in this encounter Visit Diagnoses Not on filedocumented in this encounter Care Teams Retail Stocker Relationship Specialty Start Date End Date Shaikh Connelly MD [address] [place] [address] PCP - General Internal Medicine 05/02/23 09/23/23 Jose Chandler MD [address] [place] [address] PCP - General Family Medicine 09/24/23 11/25/23 Unallocated, Timur Hernandez MD [address] [place] [address] PCP - General Family Medicine 11/26/23 12/11/23 Jose Chandler MD [address] [place] [address] PCP - General Family Medicine 12/12/23 Ijeoma Drake NP [address] [place] [address] Nurse Practitioner Family Medicine 09/24/23 Za Wilkerson NP [address] [place] [address] Nurse Practitioner Neurology 04/21/24 Madhuri Banda DO [address] [place] [address] Referring Physician Neurology 04/21/24 documented as of this encounter
--- OUTSIDE RECORDS SUMMARY | 2024-10-26 10:05 | XMS_ITS | Encounter Summary ---
Author Organization [facility] Address [address] [place] [address] Care Team Providers Care Match Marker Name Role Phone Shaikh BUNNY Connelly Primary Care Provider [phone] Jose Chandler MD Primary Care Provider [phone] Ijeoma Drake CASH MANAGEMENT COORDINATOR Unavailable [phone] Unallocated, Timur Provider Primary Care Provi shayna Jose Chandler MD Primary Care Provider [phone] Za Wilkerson CASH MANAGEMENT COORDINATOR Unavailable [phone] Madhuri Banda DO Unavailable [phone] Encounter Details Date Type Department Care Team (Late Contact Info) Description 06/08/2023 Clinisync Result Encounter [facility] External Department Unsolicited Anahi Soriano PA [address] [place] [address] [place], [place] [address] Social History Tobacco Use Types Packs/Day Years [...] [facility] [address] [place] [address] Kasi Bennett MD [address], [address] [place] [address] 04/06/2025 1:15 PM EST Office Visit [facility] [address] [place] [address] Elida Monroy MD [address] [place] [address] documented as of this encounter Procedures Procedure Name Priority Date/Time Associated Diagnosis Comments ECG 12-LEAD 06/08/2023 3:37 PM EDT documented in this encounter Results * ECG 12-LEAD (06/08/2023 3:37 PM EDT) Anatomical Region Laterality Modality Other 06/08/2023 3:37 PM EDT Narrative 06/09/2023 7:12 AM EDT The [address] [address] Electrocardiograph Report Signed Patient: KARINA DE OLIVEIRA MR#: [id number] : 1965 Acct:[id number] Age/Sex: 57 / F ADM Date: 06/08/23 Loc: MS 231-[address]: Virginia Rendon M.D. Ordering Physician: Anahi Soriano Date of Service: 06/08/23 Procedure(s): ECG 12 lead Accession Number(s): [id number] cc: The [facility] Test Date: 2023-06-08 Pat Name: KARINA DE OLIVEIRA Department: Room: - Gender: Female Product Sales Representative: : 1965 Requested By: SHAIKH ELY Order Number: [id number] Reading MD: VIRGINIA RENDON Measurements Intervals Placida Rate: 100 P: 69 [place]: 170 QRS: 266 QRSD: 80 T: 58 [...] Dictated By: Virginia Rendon M.D. Signed By: 06/09/23711 DD/ 1537 TD/TT: Manager Action: Procedure Note Radiology, Radiologist, MD - 06/09/2023 [place] [address] Electrocardiograph Report Signed Patient: KARINA DE OLIVEIRA KMR#: [id number] : 1965Acct:[id number] Age/Sex: 57 / FADM Date: 06/08/23 Loc: MS 231-[address]: Virginia Rendon M.D. Ordering Physician: Anahi Soriano Date of Service: 06/08/23 Procedure(s): ECG 12 lead Accession Number(s): [id number] cc: [facility] Test Date: 2023-06-08 Pat Name: KARINA DE OLIVEIRA Department: Room: - Gender: Female Product Sales Representative: : 1965 Requested By: SHAIKH ELY Order Number: [id number] Reading MD: VIRGINIA RENDON Measurements Intervals Placida Rate: 100 P: 69 [place]: 170 QRS: 266 QRSD: 80 T: 58 [...] Signed On 06-09-2023 7:12:35 EDT by VIRGINIA ERNDON Dictated By: Virginia Rendon M.D. Signed By:06/09/23711 DD/ 1537 TD/TT: Manager Action: [facility] Final Result documented in this encounter Visit Diagnoses Not on filedocumented in this encounter Care Teams Match Marker Relationship Specialty Start Date End Date Shaikh Connelly MD [address] [place] [address] PCP - General Internal Medicine 05/02/23 09/23/23 Jose Chandler MD [address] [place] [address] PCP - General Family Medicine 09/24/23 11/25/23 Unallocated, Noms MD [address] [place] [address] PCP - General Family Medicine 11/26/23 12/11/23 Jose Chandler MD [address] [place] [address] PCP - General Family Medicine 12/12/23 Ijeoma Drake NP [address] [place] [address] Nurse Practitioner Family Medicine 09/24/23 Za Wilkerson NP [address] [place] [address] Nurse Practitioner Neurology 04/21/24 Madhuri Banda DO [address] [place] [address] Referring Physician Neurology 04/21/24 documented as of this encounter
--- OUTSIDE RECORDS SUMMARY | 2024-10-26 10:05 | XMS_ITS | Encounter Summary ---
Author Organization [facility] Address [address] [place] [address] Care Team Providers Care Sweep Press Operator Name Role Phone Ijeoma Drake FINANCIAL ANALYSIS CONSULTANT Unavailable [phone] Jose Chandler MD Primary Care Provider [phone] Za Wilkerson FINANCIAL ANALYSIS CONSULTANT Unavailable [phone] Madhuri Banda DO Unavailable [phone] Encounter Details Date Type Department Care Team (Late st Contact Info) Description 09/22/2024 Abstract [facility] [address] [place] [address] Ameena Vera NP [address] [facility] [facility] [place] [address] Social History Tobacco Use Types Packs/Day Years [...] How often do you attend chur or uatsdin services? Patient declined 10/02/2023 Do you belong to any clubs o r organizations such as mandaen groups, unions, fraternal or athletic groups, or [...] Recorded Patient Health Questionnaire-2 Score 0 10/03/[address] [facility] [address] [facility] - Occupational Stress Questionnaire Answer [...] any time in the past 12 m [facility], were you homeless or living in [...] [facility] [address] [place] [address] Kasi Bennett MD [address] [place] [address] 04/06/2025 1:15 PM EST Office Visit [facility] [address] [place] [address] Elida Monroy MD [address] [place] [address] documented as of this encounter Visit Diagnoses Not on filedocumented in this encounter Care Teams Sweep Press Operator Relationship Specialty Start Date End Date Jose Chandler MD PCP - General Family Medicine 12/12/23 Ijeoma Drake NP Nurse Practitioner Family Medicine 09/24/23 Za Wilkerson NP Nurse Practitioner Neurology 04/21/24 Madhuri Banda DO [address] [place] [address] Referring Physician Neurology 04/21/24 documented as of this encounter
--- OUTSIDE RECORDS SUMMARY | 2024-10-26 10:05 | XMS_ITS | Encounter Summary ---
Author Organization [facility] Address [address] [place] [address] Care Team Providers Care Restaurant Associate Name Role Phone Shaikh BUNNY Connelly Primary Care Provider [phone] Jose Chandler MD Primary Care Provider [phone] Ijeoma Drake TEXTBOOK ASSOCIATE Unavailable [phone] Unallocated, Timur Hernandez MD Primary Care Provi shayna Jose Chandler MD Primary Care Provider [phone] Za Wilkerson TEXTBOOK ASSOCIATE Unavailable [phone] Madhuri Banda DO Unavailable [phone] Encounter Details Date Type Department Care [...] [facility] [address] [place] [address] Kasi Bennett MD [address] [place] [address] 04/06/2025 1:15 PM EST Office Visit [facility] [facility] [address] [place] [address] Elida Monroy MD [address] [place] [address] documented as of this encounter Procedures Procedure Name Priority Date/Time Associated Diagnosis Comments MR LUMBAR SPINE WO CON 06/06/2023 4:49 PM EDT documented in this encounter Results * MR LUMBAR SPINE WO CON (06/06/2023 4:49 PM EDT) Anatomical Region Laterality Modality Other 06/06/2023 4:49 PM EDT Narrative 06/06/2023 4:51 PM EDT The [place] [id number] Magnetic Resonance Report Signed Patient: KARINA DE OLIVEIRA MR#: [id number] : 1965 Acct:[id number] Age/Sex: 57 / F ADM Date: 06/06/23 Loc: MRI Attending Dr: James Tijerina NP Ordering Physician: James Tijerina NP Date of Service: 06/06/23 Procedure(s): MR lumbar spine wo con Accession Number(s): [id number] cc: Shaikh Erica Connelly; James Tijerina NP The [address] [address] Patient Name: KARINA DE OLIVEIRA MRN: [id number] date: 1965 Sex: F Assigned Patient Location: MRI Current Patient Location: MRI Accession/Order Number: [id number] Exam Date: 06/06/2023 12:30 Report Date: 06/06/2023 16:49 At the request of: JAMES TJIERINA Procedure: MR lumbar spine wo con MRI [...] Dictated By: Ruperto Fritz M.D. Signed By: 06/06/23 1651 DD/ 1649 TD/TT: Kitchen Mechanic: Procedure Note Radiology, Radiologist, - 06/06/2023 [place] [address] Magnetic Resonance Report Signed Patient: KARINA DE OLIVEIRA KMR#: [id number] : 1965Acct:[id number] Age/Sex: 57 / FADM Date: 06/06/23 Loc: MRI Attending Dr: James Tijerina NP Ordering Physician: James Tijerina NP Date of Service: 06/06/23 Procedure(s): MR lumbar spine wo con Accession Number(s): [id number] cc: Shaikh Erica Connelly; James Tijerina NP The [place] [address] Patient Name: KARINA DE OLIVEIRA MRN: [id number] date: 1965 Sex: F Assigned Patient Location: MRI Current Patient Location: MRI Accession/Order Number: [id number] Exam Date: 06/06/2023 12:30 Report Date: 06/06/2023 [...] By: Ruperto Fritz M.D. Signed By:06/06/231650 DD/ TD/TT: Kitchen Mechanic: Generic External Data Provider [facility] Final Result documented in this encounter Visit Diagnoses Not on filedocumented in this encounter Care Teams Restaurant Associate Relationship Specialty Start Date End Date Shaikh Connelly MD [address] [place] [address] PCP - General Internal Medicine 05/02/23 09/23/23 Jose Chandler MD [address] [place] [address] PCP - General Family Medicine 09/24/23 11/25/23 Unallocated, Timur Hernandez MD [address] [place] [address] PCP - General Family Medicine 11/26/23 12/11/23 Jose Chandler MD [address] [place] [address] PCP - General Family Medicine 12/12/23 Ijeoma Drake NP [address] [place] [address] Nurse Practitioner Family Medicine 09/24/23 Za Wilkerson NP [address] [facility] [place] [address] Nurse Practitioner Neurology 04/21/24 Madhuri Banda DO [address] [place] [address] Referring Physician Neurology 04/21/24 documented as of this encounter
--- OUTSIDE RECORDS SUMMARY | 2024-10-26 10:05 | XMS_ITS | Encounter Summary ---
Author Organization [facility] Address [address] [place] [address] Care Team Providers Care Warehouse Distribution Manager Name Role Phone Ijeoma Drake HAND MEAT SALTER Unavailable [phone] Jose Chandler MD Primary Care Provider [phone] Za Wilkerson HAND MEAT SALTER Unavailable [phone] Madhuri Banda DO Unavailable [phone] Encounter Details Date Type Department Care Team (Late st Contact Info) Description 09/21/2024 Abstract [facility] [address] [place] [address] Ameena Vera NP [address] [facility] [place] [address] Social History Tobacco Use Types Packs/Day Years [...] How often do you attend chur or voodoo services? Patient declined 10/02/2023 Do you belong to any clubs o r organizations such as hoahaoism groups, unions, fraternal or athletic groups, or [...] Recorded Patient Health Questionnaire-2 Score 0 10/03/2023 [facility] - Occupational Stress Questionnaire Answer Date [...] any time in the past 12 m [facility], were you homeless or living in a group home (including now)? Patient declined 10/02/2023 Comments [...] [facility] [address] [place] [address] Kasi Bennett MD [address] [place] [address] 04/06/2025 1:15 PM EST Office Visit [facility] [address] [place] [address] Elida Monroy MD [address] [place] [address] documented as of this encounter Visit Diagnoses Not on filedocumented in this encounter Care Teams Warehouse Distribution Manager Relationship Specialty Start Date End Date Jose Chandler MD PCP - General Family Medicine 12/12/23 Ijeoma Drake NP Nurse Practitioner Family Medicine 09/24/23 Za Wilkerson NP Nurse Practitioner Neurology 04/21/24 Madhuri Banda DO [address] [place] [address] Referring Physician Neurology 04/21/24 documented as of this encounter
--- OUTSIDE RECORDS SUMMARY | 2024-10-26 10:05 | XMS_ITS | Encounter Summary ---
Author Organization [facility] Address [address] [place] [address] [place] [address] Care Team Providers Care Patient Access Coordinator Name Role Phone Shaikh BUNNY Connelly Primary Care Provider [phone] Shaikh BUNNY Connelly Primary Care Provider [phone] Jose Chnadler MD Primary Care Provider [phone] Ijeoma Drake HEALTH SERVICES INFORMATION SPECIALIST Unavailable [phone] Unallocated, Noms Provider Primary Care Provi shayna Jose Chandler MD Primary Care Provider [phone] Za Wilkerson HEALTH SERVICES INFORMATION SPECIALIST Unavailable [phone] Madhuri Banda DO Unavailable [phone] Encounter Details Date Type Department Care Team (Late st Contact Info) Description 03/18/2023 Orders Only [facility] [address] [place] [address] Shaikh Connelly MD [address] [place] [address] Social History Tobacco Use Types Packs/Day Years [...] [facility] [address] [place] [address] Kasi Bennett MD [address] [place] [address] 04/06/2025 1:15 PM EST Office Visit [facility] [address] [place] [address] Elida Monroy MD [address] [place] [address] documented as of this encounter Procedures Procedure Name Priority Date/Time Associated Diagnosis Comments MISCELLANEOUS LAB TEST Routine 11/17/2022 3:09 PM EDT documented in this encounter Results * - Miscellaneous Test (11/17/2022 3:09 PM EDT) Shaikh [place] [facility] BLOOD ORDERABLES Final Resu lt documented in this encounter Visit Diagnoses Not on filedocumented in this encounter Care Teams Patient Access Coordinator Relationship Specialty Start Date End Date Shaikh Connelly MD PCP - General Internal Medicine 11/11/22 05/01/23 Shaikh Connelly MD [address] [place] [address] PCP - General Internal Medicine 05/02/23 09/23/23 Jose Chandler MD [address] [place] [address] PCP - General Family Medicine 09/24/23 11/25/23 Unallocated, Noms MD [address] [place] [address] PCP - General Family Medicine 11/26/23 12/11/23 Jose Chandler MD [address] [place] [address] PCP - General Family Medicine 12/12/23 Ijeoma Drake NP [address] [place] [address] Nurse Practitioner Family Medicine 09/24/23 Za Wilkerson NP [address] [place] [address] Nurse Practitioner Neurology 04/21/24 Madhuri Banda DO [address] [place] [address] Referring Physician Neurology 04/21/24 documented as of this encounter
--- OUTSIDE RECORDS SUMMARY | 2024-10-26 10:05 | XMS_ITS | Encounter Summary ---
Author Organization [facility] Address [address] [place] [address] Care Team Providers Care Sox Analyst Name Role Phone Shaikh BUNNY Connelly Primary Care Provider [phone] Jose Chandler MD Primary Care Provider [phone] Ijeoma Drake LEASE OPERATOR Unavailable [phone] Unallocated, Timur Hernandez MD Primary Care Provi shayna Jose Chandler MD Primary Care Provider [phone] Za Wilkerson LEASE OPERATOR Unavailable [phone] Madhuri Banda DO Unavailable [phone] Encounter Details Date Type Department Care Team (Late st Contact Info) Description 06/11/2023 Orders Only [facility] [address] [place] [address] Shaikh Connelly MD [address] [place] [address] Social History Tobacco Use Types [...] 11/02/2024 10:10 AM EDT Office Visit [facility] [address] [place] [address] Kasi Bennett MD [address] [place] [address] 04/06/2025 1:15 PM EST Office Visit [facility] [address] [place] [address] Elida Monroy MD [address] [place] [address] documented as of this encounter Procedures Procedure Name Priority Date/Time Associated Diagnosis Comments XR FOOT 3+ VIEWS LEFT Routine 06/10/2023 9:46 AM EDT documented in this encounter Results * XR foot 3+ views left (06/10/2023 9:46 AM EDT) Anatomical Region Laterality Modality Lower Extremities, Foot Left Radiogra phic Imaging Shaikh [place] [facility] XR PROCEDURES Final Result documented in this encounter Visit Diagnoses Not on filedocumented in this encounter Care Teams Sox Analyst Relationship Specialty Start Date End Date Shaikh Connelly MD [address] [place] [address] PCP - General Internal Medicine 05/02/23 09/23/23 Jose Chandler MD [address] [place] [address] PCP - General Family Medicine 09/24/23 11/25/23 Unallocated, Timur Hernandez MD [address] [place] [address] PCP - General Family Medicine 11/26/23 12/11/23 Jose Chandler MD [address] [place] [address] PCP - General Family Medicine 12/12/23 Ijeoma Drake NP [address] [place] [address] Nurse Practitioner Family Medicine 09/24/23 Za Wilkerson NP [address] [place] [address] Nurse Practitioner Neurology 04/21/24 Madhuri Banda DO [address] [place] [address] Referring Physician Neurology 04/21/24 documented as of this encounter
--- OUTSIDE RECORDS SUMMARY | 2024-10-26 10:05 | XMS_ITS | Encounter Summary ---
Author Organization [facility] Address [address] [place] [address] Care Team Providers Care Security Messenger Name Role Phone Shaikh BUNNY Connelly Primary Care Provider [phone] oJse Chandler MD Primary Care Provider [phone] Ijeoma Drake TEST PREPARER Unavailable [phone] Unallocated, Timur Hernandez MD Primary Care Provi shayna Jose Chandler MD Primary Care Provider [phone] Za Wilkerson TEST PREPARER Unavailable [phone] Madhuri Banda DO Unavailable [phone] Encounter Details Date Type Department Care Team ([facility] st Contact Info) Description 06/10/2023 Orders Only [facility] [address] [facility] [address] [place] [address] Rivas Rendon MD [address] [facility] [place] [address] Social History Tobacco Use Types Packs/Day Years [...] [facility] [address] [place] [address] Kasi Bennett MD [address] [place] [address] 04/06/2025 1:15 PM EST Office Visit [facility] [address] [place] [address] Elida Monroy MD [address] [place] [address] documented as of this encounter [...] on filedocumented in this encounter Care Teams Security Messenger Relationship Specialty Start Date End Date Shaikh Connelly MD [address] [place] [address] PCP - General Internal Medicine 05/02/23 09/23/23 Jose Chandler MD [address] [place] [address] PCP - General Family Medicine 09/24/23 11/25/23 Unallocated, Timur Hernandez MD [address] [facility] [place] [address] PCP - General Family Medicine 11/26/23 12/11/23 Jose Chandler MD [address] [place] [address] PCP - General Family Medicine 12/12/23 Ijeoma Drake NP [address] [place] [address] Nurse Practitioner Family Medicine 09/24/23 Za Wilkerson NP [address] [place] [address] Nurse Practitioner Neurology 04/21/24 Madhuri Banda DO [address] [place] [address] Referring Physician Neurology 04/21/24 documented as of this encounter
--- OUTSIDE RECORDS SUMMARY | 2024-10-26 10:05 | XMS_ITS | Clinical Summary ---
Author Organization [facility] Address [address], [address] [place] [address] Care Team Providers Care Planner/Scheduler Name Role Phone House Sr., Jonathan INGRAM [...] MORNING 06/05/2021 Active Lancets (ONETOUCH DELICA PLUS [id number]) [facility] USE TO TEST BLOOD SUGAR TWICE DAILY [...] = 0.6 oz pur e alcohol) occasional vcopious Software Utilities Answer Date Recorded In the past 12 months has e [employer], [employer], oil, or water [employer] threatened to shut off services in your [...] any time in the past 12 m [facility], were you homeless or living in a residential (including now)? No 02/26/2024 Food Insecurity Answer [...] Description 03/03/2025 10:15 AM EST Office Visit [facility] Part of [address] [place] [address] Nikkie Barclay, PHOTOFINISHING LABORATORY WORKER - [address] [place] [address] Return in about 1 year [...] 2) 10/21/2013 Annual Wellness Visit (Medicare) 01/07/2023 Respiratory Syncytial Virus (RSV) or age 60 yrs+ (1 - Risk 60-74 years 1-dose series) 2023 Flu vaccine (#1) 09/11/2024 COVID-19 Vaccine (1 - 2023-2 5 season) 2024 Depression Screen 02/25/2025 02/26/2024, 02/26/2024 Breast cancer [...] BILATERAL Routine 03/20/2023 Screening mammogram, encounter for PIPE TESTER CYTOLOGY Routine 08/30/2021 10:13 AM EDT from Last 3 Months or Most Recently Relevant to Health Maintenance Results * TOO BRANDON DIGITAL SCREEN BILATERAL (03/20/2023) Anatomical Region Laterality Modality Breast Bilateral Mammography Nikkie Barclay APRN - CNEverardo IMG MAMMOGRAPHY ORDERABLES Final Result * PIPE TESTER Cytology (08/30/2021 10:13 AM EDT) Cytology Report INTERPRETATION Vaginal material, (ThinPrep vial, Imaging-assisted review): Specimen Adequacy: Satisfactory for evaluation. Descriptive Diagnosis: Negative for intraepithelial lesion or malignancy. Last Pattern Grader: CLARK Delacruz(ASCP) Electronically Signed Out 09/07/2021 Source: A: Vaginal material, (ThinPrep vial, Imaging-assisted review) Clinical History Hysterectomy Surgery: Salpingostomy; Ovary removal Z12.4 Encounter for screening for malignant neoplasm of cervix GYNECOLOGIC CYTOLOGY REPORT Patient Name: BRIAN WEIR Med Rec: [id number] Path Number: [id number] [facility] [employer] CONSULTING PATHOLOGISTS [facility] ANATOMIC PATHOLOGY [address] [place] [address] [facility] 08/30/2021 10:1 3 AM EDT 08/31/2021 10:13 AM EDT Nikkie Barclay APRN - CNEverardo PATHOLOGY/CYTOLO GY ORDERABLES Final Result [facility] [address] [place] [address], [facility] [phone] [phone] from Last 3 Months or Most Recently Relevant to Health Maintenance Insurance MEDICARE [employer] Care Teams Planner/Scheduler Relationship Specialty Start Date End Date Jonathan Bean Sr., [address] [place] [address] PCP - General Family Medicine 08/30/21
--- OUTSIDE RECORDS SUMMARY | 2024-10-26 10:05 | XMS_ITS | Encounter Summary ---
Author Organization [facility] Address [address] [place] [address] Care Team Providers Care Information Systems Administrator Name Role Phone Ijeoma Drake TOBACCO SAMPLER Unavailable [phone] Jose Chandler MD Primary Care Provider [phone] Za Wilkerson TOBACCO SAMPLER Unavailable [phone] Madhuri Banda DO Unavailable [phone] Encounter Details Date Type Department Care Team (Late st Contact Info) Description 09/21/2024 Orders Only [facility] [address] [place] [address] Aramis Live MD [address] [place] [address] Social History Tobacco Use Types Packs/Day Years [...] any clubs o r organizations such as christian groups, unions, fraternal or athletic groups, or [...] Recorded Patient Health Questionnaire-2 Score 0 10/03/2023 [facility] - Occupational Stress [...] any time in the past 12 m [facility], were you homeless or living in a half-way (including now)? Patient declined 10/02/2023 Comments Unknown [...] [facility] [address] [place] [address] Kasi Bennett MD [address] [place] [address] 04/06/2025 1:15 PM EST Office Visit [facility] [address] [place] [address] Elida Monroy MD [address] [place] [address] documented as of this encounter Procedures Procedure Name Priority Date/Time Associated Diagnosis Comments MR BRAIN WO CONTRAST Routine 09/21/2024 6:09 PM EDT XR CHEST 1 VIEW Routine 09/21/2024 6:06 PM EDT documented in this encounter Results * MR brain wo contrast (09/21/2024 6:09 PM EDT) Anatomical Region Laterality Modality Brain Magnetic Resonan ce Aramis Live MD IMG MRI PROCEDURES Final Result * XR chest 1 view (09/21/2024 6:06 PM EDT) Anatomical Region Laterality Modality Chest Radiographic Eliana ging us Aramis Live MD IMG XR PROCEDURES Final Result documented in this encounter Visit Diagnoses Not on filedocumented in this encounter Care Teams Information Systems Administrator Relationship Specialty Start Date End Date Jose Chandler MD PCP - General Family Medicine 12/12/23 Ijeoma Drake NP Nurse Practitioner Family Medicine 09/24/23 Za Wilkerson NP Nurse Practitioner Neurology 04/21/24 Madhuri Banda DO [address] [place] [address] Referring Physician Neurology 04/21/24 documented as of this encounter
--- OUTSIDE RECORDS SUMMARY | 2024-10-26 10:05 | XMS_ITS | Encounter Summary ---
Author Organization [facility] Address [address] [place] [address] Care Team Providers Care Pharmaceutical Development Technician Name Role Phone Shaikh BUNNY Connelly Primary Care Provider [phone] Shaikh BUNNY Connelly Primary Care Provider [phone] Jose Chandler MD Primary Care Provider [phone] Ijeoma Drake PUBLIC RELATIONS INTERN Unavailable [phone] Unallocated, Noms Provider Primary Care Provi shayna Jose Chandler MD Primary Care Provider [phone] Za Wilkerson PUBLIC RELATIONS INTERN Unavailable [phone] Madhuri Banda DO Unavailable [phone] Encounter Details Date Type Department Care [...] Visit [facility] [address] [place] [address] Kasi Bennett MD [address] [place] [address] 04/06/2025 1:15 PM EST Office Visit [facility] [address] [place] [address] Elida Monroy MD [address] [place] [address] documented as of this encounter Procedures Procedure Name Priority Date/Time Associated Diagnosis Comments XR HAND 3+ VIEWS LEFT 01/12/2023 5:22 AM EST documented in this encounter Results * XR hand 3+ views left (01/12/2023 5:22 AM EST) Anatomical Region Laterality Modality Upper Extremities, Hand Left Radiogra phic Imaging 01/12/2023 5:22 AM EST Narrative 01/12/2023 5:22 [place] [address] XRay Report Signed Patient: KARINA WEIR MR#: [id number] : 1965 Acct:[id number] Age/Sex: 57 / F ADM Date: 01/10/23 Loc: PM Attending Dr: James Blanco NP Ordering Physician: James Blanco NP Date of Service: 01/10/23 Procedure(s): XR hand LT min 3V Accession Number(s): [id number] cc: Shaikh Erica Connelly; James Blanco NP [address] [address] Patient Name: KARINA WEIR MRN: [id number] date: 1965 Sex: F Assigned Patient Location: PM Current Patient Location: Accession/Order Number: [id number] Exam Date: 01/10/2023 12:18 Report Date: 01/12/2023 05:22 At the request of: JAMES BLANCO Procedure: XR hand LT min 3V PROCEDURE: [...] M.D. Signed By: 01/12/23524 DD/ 1 TD/TT: Bulb Assembler: Procedure Note Radiology, Radiologist, MD - 01/14/2023 [place] [address] XRay Report Signed Patient: KARINA WEIR KMR#: [id number] : 1965Acct:[id number] Age/Sex: 57 / FADM Date: 01/10/23 Loc: PM Attending Dr: James Blanco NP Ordering Physician: James Blanco NP Date of Service: 01/10/23 Procedure(s): XR hand LT min 3V Accession Number(s): [id number] cc: Shaikh Erica Connelly; James Blanco NP The [place] [id number] Patient Name: KARINA WEIR MRN: [id number] date: 1965 Sex: F Assigned Patient Location: PM Current Patient Location: Accession/Order Number: [id number] Exam Date: 01/10/2023 12:18 Report Date: 01/12/2023 05:22 At the request of: JAMES BLANCO Procedure: XR hand LT min 3V PROCEDURE: [...] Cortes M.D. Signed By:01/12/23524 DD/ 1 TD/TT: Bulb Assembler: Generic External Data Provider IMG XR PROCEDURES Final Result documented in this encounter Visit Diagnoses Not on filedocumented in this encounter Care Teams Pharmaceutical Development Technician Relationship Specialty Start Date End Date Shaikh Connelly MD PCP - General Internal Medicine 11/11/22 05/01/23 Shaikh Connelly MD [address] [place] [address] PCP - General Internal Medicine 05/02/23 09/23/23 Jose Chandler MD [address] [place] [address] PCP - General Family Medicine 09/24/23 11/25/23 Unallocated, Noms MD David [address] [place] [address] PCP - General Family Medicine 11/26/23 12/11/23 Jose Chandler MD [address] [place] [address] PCP - General Family Medicine 12/12/23 Ijeoma Drake NP [address] [place] [address] Nurse Practitioner Family Medicine 09/24/23 Za Wilkerson NP [address] [place] [address] Nurse Practitioner Neurology 04/21/24 Madhuri Banda DO [address] [place] [address] Referring Physician Neurology 04/21/24 documented as of this encounter
--- OUTSIDE RECORDS SUMMARY | 2024-10-26 10:05 | XMS_ITS | Encounter Summary ---
Author Organization [facility] Address [address] [place] [address] Care Team Providers Care School Social Worker Name Role Phone Shaikh BUNNY Connelly Primary Care Provider [phone] Shaikh BUNNY Connelly Primary Care Provider [phone] Jose Chandler MD Primary Care Provider [phone] Ijeoma Drake WRISTER Unavailable [phone] Unallocated, Noms Provider Primary Care Provi shayna Jose Chandler MD Primary Care Provider [phone] Za Wilkerson WRISTER Unavailable [phone] Madhuri Banda DO Unavailable [phone] Encounter Details Date Type Department Care [...] [facility] [address] [place] [address] Kasi Bennett MD [address] [place] [address] 04/06/2025 1:15 PM EST Office Visit [facility] [address] [place] [address] Elida Monroy MD [address] [place] [address] documented as of this encounter Procedures Procedure Name Priority Date/Time Associated Diagnosis Comments [facility] LIVER PANEL Routine 03/20/2023 9:5 8 AM EST ALL LIPID PROFILE (FASTING) Routine 03/20/2023 9:58 AM EST XR DEXA AXIAL SKELETON 03/20/2023 9:48 AM EST documented in this encounter Results * ALL LIPID PROFILE (FASTING) (03/20/2023 9:58 AM EST) TRIGLYCERIDES 103 <=150 mg/dL TBH CHOLESTEROL 110 <=200 mg/dL TB[facility] HDL CHOLESTEROL 47 40 - 60 mg/dL [facility] Comment: > or =60 mg/dl - LOW CARDIOVASCULAR RISK <40 mg/dl - HIGH CARDIOVASCULAR RISK LDL CHOLESTEROL CALCULATED 42.4 mg/dL TB Comment: <100 mg/dl OPTIMAL 100-129 mg/dl NEAR OR ABOVE OPTIMAL 130-159 mg/dl BORDERLINE HIGH 160-189 mg/dl HIGH >190 mg/dl VERY HIGH VLDL CHOLESTEROL 20.6 mg/dL TBH CHOL HDL RATIO 2.3 TB[facility] Comment: 3.3 - 4.4 LOW RISK 4.4 - 7.1 AVERAGE RISK 7.1 - 11.0 MODERATE RISK >11.0 HIGH RISK 03/20/2023 9:58 AM EST 03/20/2023 10:03 AM EST Narrative [facility]IN[facility] - 03/20/2023 11:07 AM EST us Shaikh Maricel HOLLIS CLIN[facility] Final Result Performing Organization Address City/[facility] Co de Phone Number CLINISYVA TB * (ABNORMAL) [facility] LIVER PANEL (03/20/2023 9:58 AM EST) BILIRUBIN [...] 03/20/2023 11:07 AM EST Shaikh Maricel HOLLIS [facility] Final Result Performing Organization Address [facility] Co de Phone Number [facility] * XR DEXA AXIAL SKELETON (03/20/2023 9:48 AM EST) Anatomical Region Laterality Modality Other 03/20/2023 9:48 AM EST Narrative 03/20/2023 9:50 [place] [address] XRay Report Signed Patient: KARINA DE OLIVEIRA MR#: [id number] : 1965 Acct:[id number] Age/Sex: 57 / F ADM Date: 03/20/23 Loc: MAMMO Attending Dr: RADHA TRIVEDI Ordering Physician: RADHA TRIVEDI Date of Service: 03/20/23 Procedure(s): XR DEXA axial skeleton Accession Number(s): [id number] cc: Shaikh Erica Connelly; RADHA TRIVEDI [address] [address] Patient Name: KARINA DE OLIVEIRA MRN: [id number] date: 1965 Sex: F Assigned Patient Location: MAMMO Current Patient Location: LAB Accession/Order Number: [id number] Exam Date: 03/20/2023 09:28 Report Date: 03/20/2023 [...] M.D. Signed By: 03/20/2350 DD/ 7 TD/TT: International Marketing Intern: Procedure Note Radiology, Radiologist, MD - 03/20/2023 [place] [address] XRay Report Signed Patient: KARINA DE OLIVEIRA KMR#: [id number] : 1965Acct:[id number] Age/Sex: 57 / FADM Date: 03/20/23 Loc: MAMMO Attending Dr: RADHA TRIVEDI Ordering Physician: RADHA TRIVEDI Date of Service: 03/20/23 Procedure(s): XR DEXA axial skeleton Accession Number(s): [id number] cc: Shaikh Erica Connelly; RADHA TRIVEDI The [place] [id number] Patient Name: KARINA DE OLIVEIRA MRN: [id number] date: 1965 Sex: F Assigned Patient Location: MAMMO Current Patient Location: LAB Accession/Order Number: [id number] Exam Date: 03/20/2023 09:28 Report Date: 03/20/2023 [...] 09:48 Dictated By: Ryan Goldman M.D. Signed By:03/20/2350 DD/ TD/TT: International Marketing Intern: Generic External Data Provider [facility] Final Result documented in this encounter Visit Diagnoses Not on filedocumented in this encounter Care Teams School Social Worker Relationship Specialty Start Date End Date Shaikh Connelly MD PCP - General Internal Medicine 11/11/22 05/01/23 Shaikh Connelly MD [address] [place] [address] PCP - General Internal Medicine 05/02/23 09/23/23 Jose Chandler MD [address] [place] [address] PCP - General Family Medicine 09/24/23 11/25/23 Unallocated, Timur Hernandez MD [address] [facility] [address] PCP - General Family Medicine 11/26/23 12/11/23 Jose Chandler MD [address] [place] [address] PCP - General Family Medicine 12/12/23 Ijeoma Drake NP [address] [place] [address] Nurse Practitioner Family Medicine 09/24/23 Za Wilkerson NP [address] [place] [address] Nurse Practitioner Neurology 04/21/24 Madhuri Banda DO [address] [place] [address] Referring Physician Neurology 04/21/24 documented as of this encounter
--- OUTSIDE RECORDS SUMMARY | 2024-10-26 10:05 | XMS_ITS | Encounter Summary ---
Author Organization [facility] Address [address] [place] [address] [place] [address] Care Team Providers Care Location Director Name Role Phone Shaikh BUNNY Connelly Primary Care Provider [phone] Shaikh BUNNY Connelly Primary Care Provider [phone] Jose Chandler MD Primary Care Provider [phone] Ijeoma Drake FILM PROCESSOR Unavailable [phone] Unallocated, Timur Provider Primary Care Provi shayna Jose Chandler MD Primary Care Provider [phone] Za Wilkerson FILM PROCESSOR Unavailable [phone] Madhuri Banda DO Unavailable [phone] Reason for Visit * Reason Comments Med Refill Encounter Details Date Type Department Care Team (Late st Contact Info) Description 03/05/2023 Refill [facility] [address] [place] [address] Shaikh Connelly MD [address] [place] [address] Gout, unspecified cause, unspecified chronicity, unspecified site [...] [facility] [address] [place] [address] Kasi Bennett MD [address] [place] [address] 04/06/2025 1:15 PM EST Office Visit [facility] [address] [place] [address] Elida Monroy MD [address] [place] [address] documented as of this encounter Visit Diagnoses Diagnosis Gout, unspecified cause, unspecified chronicity, unspecified site- Primary documented in this encounter Care Teams Location Director Relationship Specialty Start Date End Date Shaikh Connelly MD PCP - General Internal Medicine 11/11/22 05/01/23 Shaikh Connelly MD [address] [place] [address] PCP - General Internal Medicine 05/02/23 09/23/23 Jose Chandler MD [address] [place] [address] PCP - General Family Medicine 09/24/23 11/25/23 Unallocated, Timur Hernandez MD [address] [place] [address] PCP - General Family Medicine 11/26/23 12/11/23 Jose Chandler MD [address] [place] [address] PCP - General Family Medicine 12/12/23 Ijeoma Drake NP [address] [place] [address] Nurse Practitioner Family Medicine 09/24/23 Za Wilkerson NP [address] [place] [address] Nurse Practitioner Neurology 04/21/24 Madhuri Banda DO [address] [place] [address] Referring Physician Neurology 04/21/24 documented as of this encounter
--- OUTSIDE RECORDS SUMMARY | 2024-10-26 10:05 | XMS_ITS | Encounter Summary ---
Author Organization [facility] Address [address] [place] [address] Care Team Providers Care Pit And Auxiliaries Supervisor Name Role Phone Shaikh BUNNY Connelly Primary Care Provider [phone] Shaikh BUNNY Connelly Primary Care Provider [phone] Jose hCandler MD Primary Care Provider [phone] Ijeoma Drake ORACLE ETL DEVELOPER Unavailable [phone] Unallocated, Guillermos Provider Primary Care Provi shayna Jose Chandler MD Primary Care Provider [phone] Za Wilkerson ORACLE ETL DEVELOPER Unavailable [phone] Madhuri Banda DO Unavailable [phone] Encounter Details Date Type Department Care Team (Late st Contact Info) Description 03/05/2023 Abstract [facility] [address] [place] [address] Shaikh Connelly MD [address] [place] [address] Social History Tobacco Use Types Packs/Day Years [...] [facility] [address] [place] [address] Kasi Bennett MD [address] [place] [address] 04/06/2025 1:15 PM EST Office Visit [facility] [address] [place] [address] Elida Monroy MD [address] [place] [address] documented as of this encounter Visit Diagnoses Not on filedocumented in this encounter Care Teams Pit And Auxiliaries Supervisor Relationship Specialty Start Date End Date Shaikh Connelly MD PCP - General Internal Medicine 11/11/22 05/01/23 Shaikh Connelly MD [address] [place] [address] PCP - General Internal Medicine 05/02/23 09/23/23 Jose Chandler MD [address] [place] [address] PCP - General Family Medicine 09/24/23 11/25/23 Unallocated, Timur Hernandez MD [address] [place] [address] PCP - General Family Medicine 11/26/23 12/11/23 Jose Chandler MD [address] [place] [address] PCP - General Family Medicine 12/12/23 Ijeoma Drake NP [address] [place] [address] Nurse Practitioner Family Medicine 09/24/23 Za Wilkerson NP [address] [facility] [address] Nurse Practitioner Neurology 04/21/24 Madhuri Banda DO [address] [place] [address] Referring Physician Neurology 04/21/24 documented as of this encounter
--- OUTSIDE RECORDS SUMMARY | 2024-10-26 10:05 | XMS_ITS | Encounter Summary ---
Author Organization [facility] Address [address] [place] [place] [address] Care Team Providers Care Pin Maker Name Role Phone Shaikh BUNNY Connelly Primary Care Provider [phone] Jose Chandler MD Primary Care Provider [phone] Ijeoma Drake STATION ENGINEER Unavailable [phone] Unallocated, Timur Provider Primary Care Provi shayna Jose Chandler MD Primary Care Provider [phone] Za Wilkerson STATION ENGINEER Unavailable [phone] Madhuri Banda DO Unavailable [phone] Encounter Details Date Type Department Care Team (Late Contact Info) Description 06/08/2023 Clinisync Result Encounter [facility] External Department Unsolicited Anahi Cuenca PA [address] [place] [address] [place], [place] [id number] Social History Tobacco Use Types Packs/Day Years [...] 11/02/2024 10:10 AM EDT Office Visit [facility] [place] [facility] [address] [place] [address] Kasi Bennett MD [address] [place] [address] 04/06/2025 1:15 PM EST Office Visit [facility] [address] [place] [address] Elida Monroy MD [address] [place] [address] documented as of this encounter Procedures Procedure Name Priority Date/Time Associated Diagnosis Comments CT FOOT LT WO CON 06/08/2023 6:2 9 PM EDT documented in this encounter Results * CT FOOT LT WO CON (06/08/2023 6:29 PM EDT) Anatomical Region Laterality Modality Other 06/08/2023 6:29 PM EDT Narrative 06/08/2023 6:32 PM EDT [address] [address] [address] Scan Report Signed Patient: KARINA DE OLIVEIRA MR#: [id number] : 1965 Acct:[id number] Age/Sex: 57 / F ADM Date: 06/08/23 Loc: MS 231-[address]: Rivas Rendon M.D. Ordering Physician: Anahi Cuenca Date of Service: 06/08/23 Procedure(s): CT foot LT wo con Accession Number(s): [id number] cc: Shaikh Erica Connelly [address] [address] Patient Name: KARINA DE OLIVEIRA MRN: [id number] date: 1965 Sex: F Assigned Patient Location: ER Current Patient Location: MS Accession/Order Number: [id number] Exam Date: 06/08/2023 17:15 Report Date: 06/08/2023 18:29 At the request of: ANAHI UCENCA Procedure: CT foot LT wo con IMAGES [...] Dictated By: Nilo Muñoz M.D. Signed By: 06/08/23 1832 DD/ 1829 TD/TT: Supplier Quality Manager: Procedure Note Radiology, Radiologist, MD - 06/08/2023 [place] [address] CT Scan Report Signed Patient: KARINA DE OLIVEIRA KMR#: [id number] : 1965Acct:[id number] Age/Sex: 57 / FADM Date: 06/08/23 Loc: MS 231-[address]: Rivas Rendon M.D. Ordering Physician: Anahi Cuenca Date of Service: 06/08/23 Procedure(s): CT foot LT wo con Accession Number(s): [id number] cc: Shaikh Erica Connelly [place] [id number] Patient Name: KARINA DE OLIVEIRA MRN: [id number] date: 1965 Sex: F Assigned Patient Location: ER Current Patient Location: MS Accession/Order Number: [id number] Exam Date: 06/08/2023 17:15 Report Date: 06/08/2023 [...] Muñoz M.D. Signed By:06/08/231831 DD/ 28 TD/TT: Supplier Quality Manager: Anahi C[facility]ENO [facility] Final Result documented in this encounter Visit Diagnoses Not on filedocumented in this encounter Care Teams Pin Maker Relationship Specialty Start Date End Date Shaikh Connelly MD [address] [place] [address] PCP - General Internal Medicine 05/02/23 09/23/23 Jose Chandler MD [address] [place] [address] PCP - General Family Medicine 09/24/23 11/25/23 Unallocated, Timur Hernandez MD [address] [place] [address] PCP - General Family Medicine 11/26/23 12/11/23 Jose Chandler MD [address] [place] [address] PCP - General Family Medicine 12/12/23 Ijeoma Drake NP [address] [place] [address] Nurse Practitioner Family Medicine 09/24/23 Za Wilkerson NP [address] [place] [address] Nurse Practitioner Neurology 04/21/24 Madhuri Banda DO [address] [place] [address] Referring Physician Neurology 04/21/24 documented as of this encounter
--- OUTSIDE RECORDS SUMMARY | 2024-10-26 10:05 | XMS_ITS | Encounter Summary ---
Author Organization [facility] Address [address] [place] [address] Care Team Providers Care Welder Helper Name Role Phone Shaikh BUNNY Connelly Primary Care Provider [phone] Jose Chandler MD Primary Care Provider [phone] Ijeoma Drake ENVIRONMENTAL CONSERVATION OFFICER Unavailable [phone] Unallocated, Timur Hernandez MD Primary Care Provi shayna Jose Chandler MD Primary Care Provider [phone] Za Wilkersno ENVIRONMENTAL CONSERVATION OFFICER Unavailable [phone] Madhuri Banda DO Unavailable [phone] Encounter Details Date Type Department Care [...] [facility] [address] [place] [address] Kasi Bennett MD [address] [place] [address] 04/06/2025 1:15 PM EST Office Visit [facility] [address] [place] [address] Elida Monroy MD [address] [place] [address] documented as of this encounter Procedures Procedure Name Priority Date/Time Associated Diagnosis Comments XR LUMBAR SPINE 6V W BENDING 05/22/2023 3:48 PM EDT documented in this encounter Results * XR LUMBAR SPINE 6V W BENDING (05/22/2023 3:48 PM EDT) Anatomical Region Laterality Modality Other 05/22/2023 3:48 PM EDT Narrative 05/22/2023 3:51 PM EDT The [address] [address] XRay Report Signed Patient: KARINA DE OLIVEIRA MR#: [id number] : 1965 Acct:[id number] Age/Sex: 57 / F ADM Date: 05/22/23 Loc: RAD Attending Dr: James Tijerina ENVIRONMENTAL CONSERVATION OFFICER Ordering Physician: James Tijerina NP Date of Service: 05/22/23 Procedure(s): XR lumbar spine 6V w bending Accession Number(s): [id number] cc: Shaikh Erica Connelly; James Tijerina NP The [address] [address] Patient Name: KARINA DE OLIVEIRA MRN: [id number] date: 1965 Sex: F Assigned Patient Location: RAD Current Patient Location: RAD Accession/Order Number: [id number] Exam Date: 05/22/2023 12:18 Report Date: 05/22/2023 [...] By: Ryan Goldman M.D. Signed By: 05/22/23 1559 DD/ 1548 TD/TT: Warehouse Operations Manager: Procedure Note Radiology, Radiologist, MD - 05/22/2023 [place] [address] XRay Report Signed Patient: KARINA DE OLIVEIRA KMR#: [id number] : 1965Acct:[id number] Age/Sex: 57 / FADM Date: 05/22/23 Loc: [facility] Attending Dr: James Tijerina NP Ordering Physician: James Tijerina NP Date of Service: 05/22/23 Procedure(s): XR lumbar spine 6V w bending Accession Number(s): [id number] cc: Shaikh Erica Connelly; James Tijerina NP The [place] [address] Patient Name: KARINA DE OLIVEIRA MRN: [id number] date: 1965 Sex: F Assigned Patient Location: [facility] Current Patient Location: [facility] Accession/Order Number: [id number] Exam Date: 05/22/2023 12:18 Report Date: 05/22/2023 [...] M.D. Signed By:05/22/23 1551 DD/ 1548 TD/TT: Warehouse Operations Manager: us Generic External Data Provider [facility] Final Result documented in this encounter Visit Diagnoses Not on filedocumented in this encounter Care Teams Welder Helper Relationship Specialty Start Date End Date Shaikh Connelly MD [address] [place] [address] PCP - General Internal Medicine 05/02/23 09/23/23 Jose Chandler MD [address] [place] [address] PCP - General Family Medicine 09/24/23 11/25/23 Unallocated, Noms Provider, [facility] [place] [address] PCP - General Family Medicine 11/26/23 12/11/23 Jose Chandler MD [address] [place] [address] PCP - General Family Medicine 12/12/23 Ijeoma Drake NP [address] [place] [address] Nurse Practitioner Family Medicine 09/24/23 Za Wilkerson NP [address] [place] [address] Nurse Practitioner Neurology 04/21/24 Madhuri Banda DO [address] [place] [address] Referring Physician Neurology 04/21/24 documented as of this encounter
--- OUTSIDE RECORDS SUMMARY | 2024-10-26 10:05 | XMS_ITS | Encounter Summary ---
Author Organization [facility] Address [address] [place] [address] Care Team Providers Care Apprentice Electrician Name Role Phone Shaikh BUNNY Connelly Primary Care Provider [phone] Shaikh BUNNY Connelly Primary Care Provider [phone] Jose Chandler MD Primary Care Provider [phone] Ijeoma Drake KEY PUNCH TEACHER Unavailable [phone] Unallocated, Noms Provider Primary Care Provi shayna Jose Chandler MD Primary Care Provider [phone] Za Wilkerson KEY PUNCH TEACHER Unavailable [phone] Madhuri Banda DO Unavailable [phone] Encounter Details Date Type Department Care [...] [facility] [address] [place] [address] Kasi Bennett MD [address] [place] [address] 04/06/2025 1:15 PM EST Office Visit [facility] [address] [place] [address] Elida Monroy MD [address] [place] [address] documented as of this encounter Procedures Procedure Name Priority Date/Time Associated Diagnosis Comments MM TOMOSYNTHESIS SCREENING BI 03/20/2023 12:57 PM EST documented in this encounter Results * MM TOMOSYNTHESIS SCREENING BI (03/20/2023 12:57 PM EST) Anatomical Region Laterality Modality Other 03/20/2023 12:5 7 PM EST Narrative 03/20/2023 12:59 PM EST [address] [address] Mammography Report Signed Patient: KARINA DE OLIVEIRA MR#: [id number] : 1965 Acct:[id number] Age/Sex: 57 / F ADM Date: 03/20/23 Loc: MAMMO Attending Dr: RADHA TRIVEDI Ordering Physician: RADHA TRIVEDI Results: Date of Service: 03/20/23 Follow Up: Procedure(s): MM tomosynthesis screening BI Accession Number(s): [id number] cc: Shaikh Erica Connelly; RADHA TRIVEDI Patient Name: KARINA DE OLIVEIRA MR#: [id number] : 1965 Exam Date: 03/20/2023 Ordering Doctor: DR RADHA TRIVEDI [facility] RADIOLOGY REPORT PROCEDURE: MM TOMOSYNTHESIS [...] skin cancer at age 69. LOCATION: The [facility] [place] BREAST COMPOSITION: Scattered areas fibroglandular density. FINDINGS: [...] Signed By: 03/20/23 1259 DD/ 1257 TD/TT: General Claims Agent: Procedure Note Radiology, Radiologist, MD - 03/20/2023 [place] [address] Mammography Report Signed Patient: KARINA DE OLIVEIRA KMR#: [id number] : 1965Acct:[id number] Age/Sex: 57 / FADM Date: 03/20/23 Loc: MAMMO Attending Dr: RADHA TRIVEDI Ordering Physician: RADHA TRIVEDIResults: Date of Service: 03/20/23Follow Up: Procedure(s): MM tomosynthesis screening BI Accession Number(s): [id number] cc: Shaikh Erica Connelly; RADHA TRIVEDI Patient Name: KARINA DE OLIVEIRA MR#: [id number] : 1965 Exam Date: 03/20/2023 Ordering Doctor: DR RADHA TRIVEDI [facility] RADIOLOGY REPORT PROCEDURE: MM TOMOSYNTHESIS [...] skin cancer at age 69. LOCATION: The [facility] [place] BREAST COMPOSITION: Scattered areas fibroglandular density. FINDINGS: [...] M.D. Signed By:03/20/23 1259 DD/ 1257 TD/TT: General Claims Agent: us Generic External Data Provider [facility] Final Result documented in this encounter Visit Diagnoses Not on filedocumented in this encounter Care Teams Apprentice Electrician Relationship Specialty Start Date End Date Shaikh Connelly MD PCP - General Internal Medicine 11/11/22 05/01/23 Shaikh Connelly MD [address] [place] [address] PCP - General Internal Medicine 05/02/23 09/23/23 Jose Chandler MD [address] [place] [address] PCP - General Family Medicine 09/24/23 11/25/23 Unallocated, Timur Hernandez MD [address] [place] [address] PCP - General Family Medicine 11/26/23 12/11/23 Jose Chandler MD [address] [place] [address] PCP - General Family Medicine 12/12/23 Ijeoma Drake NP [address] [place] [address] Nurse Practitioner Family Medicine 09/24/23 Za Wilkerson NP [address] [facility] [place] [address] Nurse Practitioner Neurology 04/21/24 Madhuri Banda DO [address] [place] [address] Referring Physician Neurology 04/21/24 documented as of this encounter
--- OUTSIDE RECORDS SUMMARY | 2024-10-26 10:05 | XMS_ITS | Encounter Summary ---
Author Organization [facility] Address [address] [place] [address] Care Team Providers Care Furnace Tapper Name Role Phone Ijeoma Drake VICE CHAIRMAN Unavailable [phone] Jose Chandler MD Primary Care Provider [phone] Za Wilkerson VICE CHAIRMAN Unavailable [phone] Madhuri Banda DO Unavailable [phone] Encounter Details Date Type Department Care Team (Late st Contact Info) Description 09/21/2024 Abstract [facility] [address] [facility] [place] [address] Ameena Vera NP [address] [facility] [place] [address] Social History Tobacco Use Types Packs/Day Years [...] How often do you attend chur or mormon services? Patient declined 10/02/2023 Do you belong to any clubs o r organizations such as zoroastrianism groups, unions, fraternal or athletic groups, or [...] Recorded Patient Health Questionnaire-2 Score 0 [facility]/2023 [facility] - Occupational Stress Questionnaire Answer Date Recorded [...] any time in the past 12 [address], were you homeless or living in a fci (including now)? Patient declined 10/02/2023 Comments Unknown [...] [facility] [address] [place] [address] Kasi Bennett MD [address] [place] [address] 04/06/2025 1:15 PM EST Office Visit [facility] [address] [place] [address] Elida Monroy MD [address] [place] [address] documented as of this encounter Visit Diagnoses Not on filedocumented in this encounter Care Teams Furnace Tapper Relationship Specialty Start Date End Date Jose Chandler MD PCP - General Family Medicine 12/12/23 Ijeoma Drake NP Nurse Practitioner Family Medicine 09/24/23 Za Wilkerson NP Nurse Practitioner Neurology 04/21/24 Madhuri Banda DO [address] [place] [address] Referring Physician Neurology 04/21/24 documented as of this encounter
--- OUTSIDE RECORDS SUMMARY | 2024-10-26 10:05 | XMS_ITS | Encounter Summary ---
Author Organization [facility] Address [address] [place] [address] Care Team Providers Care Director Industrial Museum Name Role Phone Shaikh BUNNY Connelly Primary Care Provider [phone] Shaikh BUNNY Connelly Primary Care Provider [phone] Jose Chandler MD Primary Care Provider [phone] Ijeoma Drake TOOLMAKER GRADE THREE Unavailable [phone] Unallocated, Noms Provider Primary Care Provi shayna Jose Chandler MD Primary Care Provider [phone] Za Wilkerson TOOLMAKER GRADE THREE Unavailable [phone] Madhuri Banda DO Unavailable [phone] Encounter Details Date Type Department Care Team (Late st Contact Info) Description 02/06/2023 Abstract [facility] [address] [place] [address] Shaikh Connelly MD [address] [place] [address] Social History Tobacco Use Types Packs/Day Years [...] [facility] [address] [place] [address] Kasi Bennett MD [address] [place] [address] 04/06/2025 1:15 PM EST Office Visit [facility] [address] [place] [address] Elida Monroy MD [address] [place] [address] documented as of this encounter Visit Diagnoses Not on filedocumented in this encounter Care Teams Director Industrial Museum Relationship Specialty Start Date End Date Shaikh Connelly MD PCP - General Internal Medicine 11/11/22 05/01/23 Shaikh Connelly MD [address] [place] [address] PCP - General Internal Medicine 05/02/23 09/23/23 Jose Chandler MD [address] [place] [address] PCP - General Family Medicine 09/24/23 11/25/23 Unallocated, Timur Hernandez MD [address] [place] [address] PCP - General Family Medicine 11/26/23 12/11/23 Jose Chandler MD [address] [place] [address] PCP - General Family Medicine 12/12/23 Ijeoma Drake NP [address] [place] [address] Nurse Practitioner Family Medicine 09/24/23 Za Wilkerson NP [address] [place] [address] Nurse Practitioner Neurology 04/21/24 Madhuri Banda DO [address] [place] [address] Referring Physician Neurology 04/21/24 documented as of this encounter
--- OUTSIDE RECORDS SUMMARY | 2024-10-26 10:05 | XMS_ITS | Encounter Summary ---
Author Organization [facility] Address [address] [place] [address] [place] [address] Care Team Providers Care Shipping Weigher Name Role Phone Shaikh BUNNY Connelly Primary Care Provider [phone] Shaikh BUNNY Connelly Primary Care Provider [phone] Jose Chandler MD Primary Care Provider [phone] Ijeoma Drake GLASS EMBOSSER Unavailable [phone] Unallocated, Noms Provider Primary Care Provi shayna Jose Chandler MD Primary Care Provider [phone] Za Wilkerson GLASS EMBOSSER Unavailable [phone] Madhuri Banda DO Unavailable [phone] Encounter Details Date Type Department Care Team (Late st Contact Info) Description 03/21/2023 Orders Only [facility] [address] [place] [address] Shaikh Connelly MD [address] [place] [address] Social History Tobacco Use Types Packs/Day Years [...] AM EDT Office Visit [facility] [address] [place] [address] Kasi Bennett MD [address] [place] [address] 04/06/2025 1:15 PM EST Office Visit [facility] [address] [place] [address] Elida Monroy MD [address] [place] [address] documented as of this encounter Procedures Procedure Name Priority Date/Time Associated Diagnosis Comments MAMM BILATERAL DIAG W/CAD (D) Routine 03/20/2023 2:48 PM EST documented in this encounter Results * MAMM BILATERAL DIAG W/CAD (D) (03/20/2023 2:48 PM EST) Anatomical Region Laterality Modality Radiographic Eliana ging Shaikh Maricel [facility] IM[facility] XR PROCEDURES Final Result documented in this encounter Visit Diagnoses Not on filedocumented in this encounter Care Teams Shipping Weigher Relationship Specialty Start Date End Date Shaikh Connelly MD PCP - General Internal Medicine 11/11/22 05/01/23 Shaikh Connelly MD [address] [place] [address] PCP - General Internal Medicine 05/02/23 09/23/23 Jose Chandler MD [address] [place] [address] PCP - General Family Medicine 09/24/23 11/25/23 Unallocated, Noms MD David [address] [facility] [address] PCP - General Family Medicine 11/26/23 12/11/23 Jose Chandler MD [address] [place] [address] PCP - General Family Medicine 12/12/23 Ijeoma Drake NP [address] [place] [address] Nurse Practitioner Family Medicine 09/24/23 Za Wilkerson NP [address] [place] [address] Nurse Practitioner Neurology 04/21/24 Madhuri Banda DO [address] [place] [address] Referring Physician Neurology 04/21/24 documented as of this encounter
--- OUTSIDE RECORDS SUMMARY | 2024-10-26 10:07 | XMS_ITS | CCD ---
Author Organization [facility] Care Team Providers Care Maintenance Shop Technician Name Role Phone House DO, Sr Jonathan Klein Primary Care Provider RADHA BARCLAY Referring Unavailabl e HOUSE, SR JONATHAN [...] vailable LAKSHMIPATHY ., NARCAMRYNATH Attending Nellie vailable PIRECE ., CRYS Consulting Unavailable HOLM ., DR [...] Unavailable KAREN, SUSSY Dos Santos Admitting Unavailable HIGHLANDER, SUSSY Dos Santos Attending Unavailable HOUSE, DR [...] ., NARENDRONALDATH Attending Nellie vailable LAKSHMIPATHY ., NARENDRANATH Consulting Nellie vailable HOUSE, DR BASURTO Admitting Unavailable HOUSE, DR BASURTO Attending Unavailable HOUSE, DR BASURTO Primary Care Unavailable LOTTIE, DR RYAN Guzman Consulting Unavailable HOUSE, DR BASURTO Consulting Unavailable HOLM [...] Maricel HOLLIS, Barrios Primary Care Provider Vidal DRY TRANSFER WORKER, Sonam Unavailable Jose Chandler MD Primary Care Provider [phone] Jose Chandler MD Primary Care Provider Vidal DRY TRANSFER WORKER, Sonam Unavailable Rock HIGGINS, Za Unavailable [phone] Sivan Banda DO Unavailable Lui Banks II Attending UnavailLui Alvarado II Admitting Unavailabl e NON STAFF Primary Care Unavailable NON STAFF Primary Care Provider UnavailLui Alvarado MD Attending Provider Keo HOLLIS, aTnya Esposito Attending Unavailable Rock DRY TRANSFER WORKER, Za Unavailable [phone] SONAM DRAKE Attending SONAM Justin Attending ALICIA Simmons Attending Unavailable ZA WILKERSON Attending Unavailable AMEENA VERA Attending Unavailable KASI BENNETT Attending Unavailable AMEENA VERA Referring Unavailable SONAM DRAKE Attending SONAM Justin Attending SIVAN Hinkle Attending Unavailable SONAM DRAKE Referring AMEENA Figueredo Attending Unavailable Ameena Vera Primary Care Provider Ameena Vera Attending Provider Medications Current Medications Medication Drug Class(es) Dates [...] for Back Pain January 12, 2017 1:00am Complies with drug therapy take 1 tablet by alonso th every [...] PO every week May 28, 2024 12:00am Complies with drug therapy Start: 03-09-2024 End: 02-15-2025 take 1 tablet [...] take 1 tablet by mouth once daily Allopurinol 300 mg tablet Active 300 MG PO Daily May 28, 2024 12:00am Complies with drug therapy take 1 tablet by alonso th every [...] aspirin 81 mg delayed release oral tablet (4 sources) Platelet Aggregation Inhibitor, Nonsteroidal Anti-inflammatory Drug Start: 01-12-2017 Aspirin (Kumar Low Dose Aspirin) 81 mg Tablet,Delayed Release (Dr/Ec) Active 81 MG PO Bedtime January 12, 2017 1:00am Complies with drug therapy baclofen 20 mg oral tablet (20 sources) gamma-Aminobutyric Acid-ergic Agonist Start: 10-19-2024 take 1 tablet by mouth every twelve hours as needed for muscle spasms Baclofen 20 mg tablet Active 20 MG PO Every 12 hours as needed for spasms October 19, 2024 11:56am Complies with drug therapy Start: 05-28-2024 End: 10-19-2024 take 1 tablet by mouth twice daily Baclofen 20 mg tablet Discontinued 20 MG PO Twice daily May 28, 2024 12:00am October 19, 2024 7:56am Start: 08-22-2023 End: 11-02-2024 take 1 tablet by mouth three times daily as needed for muscle spasms Baclofen 20 mg tablet Discontinued 20 MG PO Three times daily as needed for spasms October 19, 2024 7:54am October 19, 2024 12:05pm take 1 tablet by alonso th at [...] MG PO Daily May 28, 2024 12:00am Complies with drug therapy Start: 03-03-2024 End: 08-05-2024 colchicine 0.6 MG [...] 30 tablet 11/04/2023 12/18/2023 Discontinued Continuous Glucose Store Clerk (Dexcom G7 Store Clerk) device (20 sources) Start: 03-03-2024 Continuous Glu cose Store Clerk (Dexcom G7 Store Clerk) device Indications: Type 2 diabetes mellitus with diabetic microalbuminuria, without long-term current use of insulin ([facility]) 1 each continuously 1 each 03/03/2024 Active Start: 03-03-2024 Continuous Glu cose Store Clerk (Dexcom G7 Store Clerk) device Indications: Type 2 diabetes mellitus with diabetic microalbuminuria, without long-term current use of insulin ([facility]/HCC) 1 each continuously 1 each 03/03/2024 Active Continuous Glucose Sensor (Dexcom G7 Sensor) misc (20 sources) Start: 08-05-2024 End: 09-04-2024 Continuous Glucose Sensor (D excom G7 Sensor) misc Indications: Type 2 diabetes mellitus with diabetic microalbuminuria, without long-term current use of insulin ([facility]) 1 each continuously 3 each 11 08/05/2024 [...] microalbuminuria, without long-term current use of insulin ([facility]) 1 each continuously 3 each 11 03/30/2024 Active Start: 03-30-2024 Continuous Glu cose Sensor (Dexcom G7 Sensor) [facility] Indications: Type 2 diabetes mellitus with diabetic microalbuminuria, without long-term current use of insulin (CMS/HCC) 1 each continuously 3 each 11 03/30/2024 Active Start: 03-03-2024 End: 03-30-2024 Continuous Glucose Sensor (D excom G7 Sensor) [facility] Indications: Type 2 diabetes mellitus with diabetic microalbuminuria, without long-term current use of insulin (CMS/HCC) 1 each continuously 3 each 11 03/03/2024 03/30/2024 Discontinued (Reorder) Start: 03-03-2024 Continuous Glu cose Sensor (Dexcom G7 Sensor) [facility] Indications: Type 2 diabetes mellitus with diabetic microalbuminuria, without long-term current use of insulin (CMS/HCC) 1 each continuously 3 each 11 03/03/2024 [...] End: 10-25-2024 take 1 tablet by mouth twice daily Diclofenac Sodium 75 mg tablet,delayed release (DR/EC) Active 75 MG PO Twice daily May 28, 2024 12:00am Complies with drug therapy Voltaren Active famotidine 20 mg oral tablet (20 sources) Histamine-2 Receptor Antagonist Start: 10-19-2024 take 1 tablet by mouth twice daily Famotidine (Pepcid) 20 mg tablet Active 20 MG PO Twice daily October 19, 2024 7:55am Complies with drug therapy Start: 05-19-2024 End: 11-18-2024 take 1 tablet by mouth once daily Famotidine (Pepcid) 20 mg tablet Discontinued 20 MG PO Daily May 28, 2024 12:00am October 19, 2024 7:56am Start: 03-16-2024 End: 08-17-2024 take 1 tablet [...] sources) Loop Diuretic Start: 08-05-2023 End: 11-18-2024 take 1 tablet by mouth once daily as needed Furosemide (Lasix) 20 mg tablet Active 20 MG PO Daily as needed May 28, 2024 12:00am Complies with drug therapy glimepiride 1 mg oral tablet (10 sources) [...] 06/05/2021 Active hydroCHLOROthiazide 25 mg oral tablet (5 sources) Thiazide Diuretic Start: 08-16-2021 take 1 tablet by mouth once daily hydroCHLOROthiazide (HYDRODIURIL) 25 MG tablet TAKE 1 TABLET BY MOUTH EVERY DAY 0 08/16/2021 Active Start: 01-12-2017 End: 01-15-2017 take 1 tablet by mouth once daily Hydrochlorothiazide 25 mg Tablet Discontinued 25 MG PO Daily January 12, 2017 1:00am January 15, 2017 2:23pm methocarbamol 750 mg oral tablet (4 sources) Muscle Relaxant Start: 08-15-2021 take 1 [...] 75 mg oral capsule (20 sources) Start: 10-19-2024 take 2 capsules by mouth once daily at bedtime Pregabalin 75 mg capsule Active 150 MG PO Daily at bedtime October 19, 2024 11:58am Complies with drug therapy Start: 10-19-2024 End: 10-19-2024 take 1 capsule by mouth three times daily Pregabalin 75 mg capsule Discontinued 75 MG PO Three times daily October 19, 2024 7:56am October 19, 2024 12:05pm Start: 09-05-2023 End: 10-24-2024 take 1 capsule by mouth [...] 90 capsule 2 09/24/2024 10/24/2024 Active Start: 03-21-2023 End: 06-19-2023 take 1 [...] day Active take 1 capsule by mo [facility] twice daily pregabalin (LYRICA) [...] tabs/24 hr PO Complies with drug therapy Start: 05-21-2023 End: 01-16-2024 rizatriptan (Maxalt) 10 [...] MG PO Daily May 28, 2024 12:00am Complies with drug therapy [facility] Crestor 20 MG 1 tablet Orally Once a day Active Semaglutide (1 source) Start: 05-28-2024 inject 2 mg by subcutaneous injection every week Semaglutide (Ozempic) 2 mg/dose (8 mg/3 mL) pen injector Active 2 MG SUBCUT every week May 28, 2024 12:00am Complies with drug therapy Semaglutide (Ozempic) 2 mg/dose (8 mg/3 mL) [...] PO Twice daily January 12, 2017 1:00am Complies with drug therapy take 1 tablet by alonso th every twelve hours Depakote 500 mg 1 tablet Orally twice a day Active Vitamin C 500 MG (2 sources) Vitamin C 500 MG Orally Active Completed/Discontinued Medications Medication Drug Class(es) Dates Sig (Normalized) Sig (Original) ascorbic acid 100 mg oral tablet (7 sources) Vitamin C Start: 01-12-2017 End: 01-15-2017 [...] list cleanup) eletriptan 40 mg oral tablet (9 sources) Serotonin-1b and [...] day Active indomethacin 50 mg oral capsule (3 sources) Nonsteroidal Anti-inflammatory Drug Start: 01-12-2017 End: 01-15-2017 take 1 capsule by mouth twice daily Indomethacin 50 mg Capsule Discontinued 50 MG PO Twice daily January 12, 2017 1:00am January 15, 2017 2:23pm lactobacillus acidophilus 1.5 mg oral capsule (3 sources) Start: 01-12-2017 End: 01-15-2017 Lactobacillus Acidophilus (Probiotic Acidophilus) 1.5 mg (250 million cell) Capsule Discontinued PO Daily January 12, 2017 1:00am January 15, 2017 2:23pm lansoprazole 30 mg delayed release oral capsule (3 sources) Proton Pump Inhibitor Start: 01-12-2017 End: 10-19-2024 take 1 capsule by mouth once daily Lansoprazole 30 mg Capsule,Delayed Release(Dr/Ec) Discontinued 30 MG PO Daily January 12, 2017 1:00am October 19, 2024 7:54am metFORMIN hydrochloride 500 mg oral tablet (20 sources) Biguanide Start: 08-07-2021 metFORMIN (GLUCOPHAGE) 500 MG tablet 1,000 mg in the morning and 1,000 mg in the evening. Take with meals. 0 08/07/2021 Active Start: 01-12-2017 End: 11-29-2024 take 1 tablet by mouth twice daily Metformin 500 mg tablet Discontinued 500 MG PO Twice daily May 28, 2024 12:00am October 19, 2024 7:54am take 1 tablet by alonso th at mealtime, then take 1 tablet by mouth every twenty-four hours metFORMIN, OSM, (Fortamet) 1000 MG 24 hr tablet Take 1,000 mg by mouth in the evening. Take with meals Do not crush, chew, or split. 0 Active Ludvwwyabxbq-As-Kdjq-Mineral s (Multiple Vitamin, Womens) Tablet (3 sources) Start: 01-12-2017 End: 01-15-2017 Ztccbwqxujfb-Zt-Pfwr-Mineral s (Multiple Vitamin, Womens) Tablet Discontinued PO [...] use of insulin ([facility]) Inject 2 mg under the skin 1 [...] use of insulin ([facility]) Inject 1 mg under the skin 1 (one) time per week 9 mL 0 01/29/2023 04/29/2023 Active triamcinolone acetonide 40 mg/ml injectable suspension (3 sources) Corticosteroid Start: 03-19-2023 Kenalog-40 Mar, 20 mg Start: 01-23-2023 Kenalog-40 Jan, 30 mg Problems Active Problems Problem Classification Problem Date Documented Date Episodic/Chronic Acute and unspecified renal failure (3 sources) Acute renal failure syndrome; Translations: [Acute kidney failure, unspecified] 01-23-2023 Episodic Comment on above: Problem List clean-u p per request of Phys. EHR Cmte Diabetes mellitus with complications (20 sources) Polyneuropathy due to type 2 diabetes mellitus; Translations: [Type 2 diabetes mellitus with diabetic polyneuropathy] Onset: 01-29-2023 03-21-2023 Chronic Diabetes mellitus without complication (13 sources) Type 2 diabetes mellitus without complications; Translations: [Type 2 diabetes mellitus without complication] Onset: 07-05-2021 Chronic Disorders of lipid metabolism (20 sources) Hyperlipidemia; Translations: [Other hyperlipidemia] Onset: 05-02-2023 05-02-2023 Chronic Esophageal disorders (6 sources) Gastroesophageal reflux disease without esophagitis; Translations: [Gastro-esophageal reflux disease without esophagitis] 03-16-2024 Chronic Essential hypertension (20 sources) Essential (primary) hypertension; Translations: [Hypertensive disorder] Onset: 04-16-2022 01-13-2017 Chronic Fracture of lower limb (20 sources) Metatarsal [...] [Vitamin D deficiency, unspecified] 07-29-2024 Chronic Osteoarthritis (12 sources) Bilateral primary osteoarthritis of knee; Translations: [...] Other hereditary and degenerative nervous system conditions (3 sources) Restless legs; Translations: [Restless legs syndrome] 01-23-2023 Chronic Comment on above: Problem List clean-u p per request of Phys. EHR Cmte Other nervous system disorders (1 source) Other chronic pain; Translations: [OTHER CHRONIC PAIN] Onset: 06-08-2022 Chronic Other nervous system disorders (3 sources) Numbness of face; Translations: [Anesthesia of skin] 01-23-2023 Episodic Comment on above: Problem List clean-u p per request of Phys. EHR Cmte Other non-epithelial cancer of skin (20 sources) Basal cell carcinoma of nose; Translations: [Basal cell carcinoma of skin of nose] Onset: 01-29-2023 01-29-2023 Episodic Other non-traumatic joint disorders (4 sources) Pain in right wrist Episodic Other non-traumatic joint disorders (20 sources) [...] Chronic Other nutritional; endocrine; and metabolic disorders (1 source) Morbid obesity; Translations: [Morbid (severe) obesity due to excess calories] 10-19-2024 Chronic Other screening for suspected conditions (not [...] not elsewhere classified] Onset: 07-05-2021 07-04-2023 Episodic Substance-related disorders (20 sources) Tobacco dependence caused by cigarettes; Translations: [Nicotine dependence, cigarettes, uncomplicated] Onset: 05-19-2024 05-19-2024 Chronic Unclassified (4 sources) LOW BACK PAIN, UNSPECIFIED; Translations: [LOW BACK PAIN, UNSPECIFIED] Onset: 06-23-2021 Past or Other Problems Problem Classification Problem Date Documented Da te Episodic/Chronic Genitourinary symptoms and ill-defined conditions (20 sources) [...] Translations: [Snoring] Onset: 10-03-2023 10-03-2023 Episodic Other non-traumatic joint disorders (4 sources) Pain in left knee; Translations: [PAIN IN LEFT KNEE] Onset: 02-16-2022 Episodic Other nutritional; endocrine; and metabolic disorders (20 sources) Hyperuricemia; Translations: [Hyperuricemia without signs of inflammatory arthritis and tophaceous disease] Onset: 05-19-2024 Resolved: 08-20-2024 05-19-2024 Episodic Other upper respiratory infections (20 sources) Acute upper respiratory infection; Translations: [Acute upper respiratory infection, unspecified] Onset: 01-29-2023 Resolved: 08-20-2024 01-29-2023 Episodic Unclassified (1 source) LOW BACK PAIN, UNSPECIFIED; Translations: [LOW BACK PAIN, UNSPECIFIED] Onset: 06-20-2021 Unclassified (2 sources) Acute pain of right knee 05-19-2024 Results Test Name Value Interpretation Reference Range Facility HbA1c (Bld) [Mass fraction]o n 08-20-2024 Interpretation and review of laboratory results Abnormal [facility] - Hematology and Cell countson 08-20-2024 HbA1c (Bld) [Mass fraction] 6.4 % [facility] ALL BASIC METABOLIC PANELon 07-09-2024 Anion gap [Moles/Vol] 11.6 mmol/L [facility] Calcium [Mass/Vol] 9.3 mg/dL 8.5 - 10. 1 mg/dL [facility] Chloride [Moles/Vol] 103 mmol/L 98 - 10 7 mmol/L [facility] CO2 [Moles/Vol] 33 mmol/L High 21.0 - 32.0 mmol/L [facility] Creatinine [Mass/Vol] 0.86 mg/dL 0.55 - 1.02 mg/dL [facility] GFR/1.73 sq M.predicted CKD-EPI (S/P/Bld) [Vol rate/Area] >60 >=60 mL/min/1.73m 2 [facility] Glucose [Mass/Vol] 107 mg/dL High 74 - 106 mg/dL [facility] Interpretation and review of laboratory results Abnormal [facility] Potassium [Moles/Vol] 4.6 mmol/L 3.5 - 5.1 mmol/L [facility] Sodium [Moles/Vol] 143 mmol/L 136 - 145 mmol/L [facility]H EGFR-NON AF [place]IZ[place] >60 >=60 mL/min/1.73m 2 [facility] Urea nitrogen [Mass/Vol] 20 mg/dL High 7.0 - 18.0 mg/dL [facility] Urea nitrogen/Creatinine [Mass ratio] 23.3 mg/mg [facility] X-ray reportOrdered By: Anton Penny on 05-28-2024 Study report [facility] [place] [address] [place] [address] XRay Report Signed Patient: Karina De Oliveira MR#: [id number] : 1965 Acct:[id number] Age/Sex: 58 / F ADM Date: 5 Loc: [facility] Room: Type: REG CLI Attending Dr: Lui Banks II, MD Copies to: Lui Banks MD~ Ordering Provider: Lui Banks MD Date of Service: 05/28/24 XR/XR knee RT 4V*: M25.561 - Pain in right knee ([id number]) XR/XR pelvis 1-2V: M25.561 - Pain in [...] KNEE. Impression dictated by: Moustapha Penny Jr., DPasqualeOPasquale05/28/2024 3:24 PM Dictation Location: [place] [address] Transcribed By: [facility] 05/28/24 1524 Dictated By: Moustapha Penny Jr, DO 05/28/24 1523 Signed By: 05/28/24 1524 [facility] XR knee RT 4V*on 05-28-2024 XR knee RT 4V* [facility] [place] [facility] [place] [address] XRay Report Signed Patient: Karina De Oliveira MR#: [id number] : 1965 Acct:[id number] Age/Sex: 58 / F ADM Date: 05/28/24 Loc: [facility] [place] Room: Type: REG CLI Attending Dr: Lui Banks II, MD Copies to: Lui Banks MD Ordering Provider: Lui Banks MD Date of Service: 05/28/24 XR/XR knee RT 4V*: M25.561 - Pain in right knee ([id number]) XR/XR pelvis 1-2V: M25.561 - Pain in [...] Penny Jr., D.O.05/28/2024 3:24 PM Dictation Location: [place] [address] Transcribed By: [facility] 05/28/24 1524 Dictated By: Moustapha Penny Jr, DO 05/28/24 1523 Signed By: 05/28/24 1524 Normal [facility] ALL CBC WITH AUTO DIFFon BASOPHILS ABSOLUTE AUTO 0.1 [facility] Basophils/100 WBC (Bld) 0.5 % 0.2 - 2.0 % [facility] Eosinophils/100 WBC (Bld) 4 % 0.9 - 7.0 % [facility] Erythrocyte distribution width (RBC) [Ratio] 14.6 % 11.0 - 15.0 % [facility] Hematocrit (Bld) [Volume fraction] 41.6 % 36.0 - 48.0 % [facility] Hemoglobin (Bld) [Mass/Vol] 14.1 g/dL 12.0 - 16.0 g/dL [facility] IMMATURE GRANULOCYTES ABS AUTO 0.07 High [facility] Immature granulocytes/100 WBC (Bld) 0.6 % High 0.0 - 0.5 % [facility] Interpretation and review of laboratory results Abnormal [facility] LYMPHOCYTES ABSOLUTE AUTO 3.6 [facility] Lymphocytes/100 WBC (Bld) 32.6 % 20.5 - 60.0 % [facility] MCH (RBC) [Entitic mass] 32.3 pg 26.7 - 34.0 pg [facility] MCHC (RBC) [Mass/Vol] 33.9 g/dL 29.9 - 35.2 g/dL [facility] MCV (RBC) [Entitic vol] 95.2 fL 81.0 - 99.0 fL [facility] MONOCYTES ABSOLUTE AUTO 0.8 [facility] Monocytes/100 WBC (Bld) 6.9 % 1.7 - 12.0 % [facility] NEUTROPHILS ABSOLUTE AUTO 6.2 [facility] Neutrophils/100 WBC (Bld) 55.4 % 43.0 - 75.0 % [facility] Platelet mean volume (Bld) [Entitic vol] 10.7 fL 9.5 - 13.5 fL [facility] EO # 0.4 [facility] PLT 193 [facility] RBC 4.37 [facility] WBC 11.1 High [facility] XR Knee - right [address] [place] [address] XRay Report Signed Patient: KARINA DE OLIVEIRA MR#: [id number] : 1965 Acct:[id number] Age/Sex: 58 / F ADM Date: 05/21/24 Loc: LAB Attending Dr: Ameena Vera NP Ordering Physician: Ameena Vera NP Date of Service: 05/21/24 Procedure(s): XR knee RT 3V Accession Number(s): [id number] cc: Ameena Vera NP [place] [address] Patient Name: KARINA DE OLIVEIRA MRN: [id number] date: 1965 Sex: F Assigned Patient Location: LAB Current Patient Location: LAB Accession/Order Number: [id number] Exam Date: 05/21/2024 13:21 Report Date: 05/21/2024 [...] Penny Jr., D.O.05/21/2024 1:21 PM Dictation Location: [place] [address] Electronically authenticated by: [id number] Y Date: 05/21/2024 13:21 Dictated By: Moustapha Penny M.D. Signed By: 05/21/24 1324 DD/ 1321 TD/TT: Director Of Curriculum: [facility] Radiology, Radiologist, MD - 05/21/2024 [place] [address] XRay Report Signed Patient: KARINA DE OLIVEIRA MR#: [id number] : 1965 Acct:[id number] Age/Sex: 58 / F ADM Date: 05/21/24 Loc: LAB Attending Dr: Ameena Vera NP Ordering Physician: Ameena Vera NP Date of Service: 05/21/24 Procedure(s): XR knee RT 3V Accession Number(s): [id number] cc: Ameena Vera NP The [place] [id number] Patient Name: KARINA DE OLIVEIRA MRN: [facility]:[id number] date: 1965 Sex: F Assigned Patient Location: LAB Current Patient Location: LAB Accession/Order Number: [id number] Exam Date: 05/21/2024 13:21 Report Date: 05/21/2024 [...] Penny Jr., D.O.05/21/2024 1:21 PM Dictation Location: [place] [address] Electronically authenticated by: [id number] Y Date: 05/21/2024 13:21 Dictated By: Moustapha Penny M.D. Signed By: 05/21/24 1324 DD/ 1321 TD/TT: Director Of Curriculum: [facility] Radiology Study observation (narrative) [facility] XR Knee - right 3 ViewsOrder ed By: Radiologist Radiology on 05-21-2024 [facility] Work Phone: HbA1c (Bld) [Mass fraction]o n 05-19-2024 Interpretation and review of laboratory results Abnormal [facility] - Hematology and Cell countson 05-19-2024 HbA1c (Bld) [Mass fraction] 6.70 % [facility] HbA1c (Bld) [Mass fraction]o n 03-30-2024 Interpretation and review of laboratory results Abnormal [facility] - Hematology and Cell countson 03-30-2024 HbA1c (Bld) [Mass fraction] 6.9 % [facility] MM TOMOSYNTHESIS SCREENING B Ion 03-18-2024 [place] [address] Mammography Report Signed Patient: KARINA DE OLIVEIRA MR#: [id number] : 1965 Acct:[id number] Age/Sex: 58 / F ADM Date: 03/18/24 Loc: MAMMO Attending Dr: RADHA BARCLAY Ordering Physician: RADHA BARCLAY Results: Date of Service: 03/18/24 Follow Up: Procedure(s): MM tomosynthesis screening BI Accession Number(s): [id number] cc: LOCO DRAKE SUSAN Patient Name: KARINA DE OLIVEIRA MR#: [id number] : 1965 Exam Date: 03/18/2024 Ordering Doctor: DR RADHA BARCLAY [facility] RADIOLOGY REPORT PROCEDURE: MM TOMOSYNTHESIS SCREENING [...] cancer at age 69. LOCATION: [facility] BREAST COMPOSITION: There are scattered areas of [...] Signed By: 03/18/24 1454 DD/ 1454 TD/TT: Director Of Curriculum: [facility] Radiology, Radiologist, MD - 03/18/2024 [place] [address] Mammography Report Signed Patient: KARINA DE OLIVEIRA MR#: [id number] : 1965 Acct:[id number] Age/Sex: 58 / F ADM Date: 03/18/24 Loc: MAMMO Attending Dr: RADHA BARCLAY Ordering Physician: RADHA BARCLAY Results: Date of Service: 03/18/24 Follow Up: Procedure(s): MM tomosynthesis screening BI Accession Number(s): [id number] cc: LOCO DRAKE SUSAN Patient Name: KARINA DE OLIVEIRA MR#: [id number] : 1965 Exam Date: 03/18/2024 Ordering Doctor: DR RADHA BARCLAY [facility] RADIOLOGY REPORT PROCEDURE: MM TOMOSYNTHESIS SCREENING [...] cancer at age 69. LOCATION: [facility] BREAST COMPOSITION: There are scattered areas of [...] Signed By: 03/18/24 1454 DD/ 1454 TD/TT: Director Of Curriculum: [facility] Radiology Study observation (narrative) [facility] MM TOMOSYNTHESIS SCREENING B IOrdered By: Radiologist Radiology on 03-18-2024 [facility] Work Phone: ALL CBC WITH AUTO DIFFon BASOPHILS ABSOLUTE AUTO 0.1 [facility] Basophils/100 WBC (Bld) 0.4 % 0.2 - 2.0 % [facility] Eosinophils/100 WBC (Bld) 3.2 % 0.9 - 7.0 % [facility] Erythrocyte distribution width (RBC) [Ratio] 15.6 % High 11.0 - 15.0 % [facility] Hematocrit (Bld) [Volume fraction] 42.4 % 36.0 - 48.0 % [facility] Hemoglobin (Bld) [Mass/Vol] 13.9 g/dL 12.0 - 16.0 g/dL [facility] IMMATURE GRANULOCYTES ABS AUTO 0.09 High [facility] Immature granulocytes/100 WBC (Bld) 0.7 % High 0.0 - 0.5 % [facility] Interpretation and review of laboratory results Abnormal [facility] LYMPHOCYTES ABSOLUTE AUTO 3.5 [facility] Lymphocytes/100 WBC (Bld) 27.7 % 20.5 - 60.0 % [facility] MCH (RBC) [Entitic mass] 31.4 pg 26.7 - 34.0 pg [facility] MCHC (RBC) [Mass/Vol] 32.8 g/dL 29.9 - 35.2 g/dL [facility] MCV (RBC) [Entitic vol] 95.7 fL 81.0 - 99.0 fL [facility] MONOCYTES ABSOLUTE AUTO 0.9 High [facility] Monocytes/100 WBC (Bld) 7.4 % 1.7 - 12.0 % [facility] NEUTROPHILS ABSOLUTE AUTO 7.7 High [facility] Neutrophils/100 WBC (Bld) 60.6 % 43.0 - 75.0 % [facility] Platelet mean volume (Bld) [Entitic vol] 10.9 fL 9.5 - 13.5 fL [facility] TB EO # 0.4 [facility] TB PLT 219 [facility] RBC 4.43 [facility] WBC 12.8 High [facility] XR LSPINE 2_3 VIEWSon 2022 XR LSPINE [...] SALTER Date: 2022-06-07 11:15 Normal [facility] CBC AUTO DIFFon 04-12-2022 BASO # 0.1 103/ul Normal 0.0-0.1 [facility] Comment on above: Performed By: #### C BC ####[facility] [address] [place] [address]Dr. Ricky Valenzuela Basophils/100 WBC (Bld) 0.5 % Normal 0.2-2.0 [facility] Comment on above: Performed By: #### C BC ####[facility] [address] [place] [address]Dr. Ricky Valenzuela EO # 0.3 103/ul Normal 0.0-0.7 [facility] Comment on above: Performed By: #### C BC ####[facility] [address] [place] [id number]. Ricky Valenzuela Eosinophils/100 WBC (Bld) 3.0 % Normal 0.9-7.0 [facility] Comment on above: Performed By: #### C BC ####[facility] [address] [place] [id number]. Ricky Valenzuela Erythrocyte distribution width (RBC) [Ratio] 14.8 % Normal 11.0-15.0 [facility] Comment on above: Performed By: #### C BC ####[facility] [address] [place] [id number]. Ricky Valenzuela Hematocrit (Bld) [Volume fraction] 40.6 % Normal 36.0-48.0 [facility] Comment on above: Performed By: #### C BC ####[facility] [address] [place] [address]Dr. Ricky Valenzuela Hemoglobin (Bld) [Mass/Vol] 13.5 g/dL Normal 12.0-16.0 [facility] Comment on above: Performed By: #### C BC ####[facility] [address] [place] [id number]. Ricky Valenzuela IG # 0.16 10e3/ul Critically high 0.00-0.03 [facility] Comment on above: Performed By: #### C BC ####[facility] [address] [place] [address]Dr. Ricky Valenzuela IG % 1.4 % Critically high 0.0-0.5 [facility] Comment on above: Performed By: #### C BC ####[facility] [address] [place] [address]Dr. Ricky Valenzuela LYMPH # 3.4 103/ul Normal 1.2-3.8 [facility] Comment on above: Performed By: #### C BC ####[facility] [address] [place] [address]Dr. Ricky Valenzuela Lymphocytes/100 WBC (Bld) 30.4 % Normal 20.5-60.0 [facility] Comment on above: Performed By: #### C BC ####[facility] [address] [place] [address]Dr. Ricky Valenzuela MANUAL DIFF REQ NO Normal [facility] Comment on above: Performed By: #### C BC ####[facility] [address] [place] [address]Dr. Ricky Valenzuela MCH (RBC) [Entitic mass] 31.8 pg Normal 26.7-34.0 [facility] Comment on above: Performed By: #### C BC ####[facility] [address] [place], [place] [address]Dr. Ricky Valenzuela MCHC (RBC) [Mass/Vol] 33.3 g/dL Normal 29.9-35.2 [facility] Comment on above: Performed By: #### C BC ####[facility] [address] [place] [address]Dr. Ricky Valenzuela MCV (RBC) [Entitic vol] 95.5 fL Normal 81.0-99.0 [facility] Comment on above: Performed By: #### C BC ####[facility] [address] [place] [address]Dr. Ricky Valenzuela MONO # 0.9 103/ul Critically high 0.3-0.8 [facility] Comment on above: Performed By: #### C BC ####[facility] [address] [place] [address]Dr. Ricky Valenzuela Monocytes/100 WBC (Bld) 7.7 % Normal 1.7-12.0 [facility] Comment on above: Performed By: #### C BC ####[facility] [address] [place] [address]Dr. Ricky Valenzuela NEUT # 6.3 103/ul Normal 1.4-6.5 [facility] Comment on above: Performed By: #### C BC ####[facility] [address] [place] [address]Dr. Ricky Valenzuela Neutrophils/100 WBC (Bld) 57.0 % Normal 43.0-75.0 [facility] Comment on above: Performed By: #### C BC ####[facility] [address] [place] [address]Dr. Ricky Valenzuela Platelet mean volume (Bld) [Entitic vol] 9.8 fL Normal 9.5-13.5 [facility] Comment on above: Performed By: #### C BC ####[facility] [address] [place] [address]Dr. Ricky Valenzuela PLT 246 103/ul Normal 150-450 [facility] Comment on above: Performed By: #### C BC ####[facility] [address] [place] [address]Dr. Ricky Valenzuela RBC 4.25 106/ul Normal 4.20-5.40 [facility] Comment on above: Performed By: #### C BC ####[facility] [address] [place] [address]Dr. Ricky Valenzuela WBC 11.1 103/ul Critically high 4.0-11.[address] [facility] Comment on above: Performed By: #### C BC ####[facility] [address] [place] [address]DrPasquale Valenzuela GLYCOHEMOGLOBIN A1Con 2022 ADA RECOMMENDATION SEE BELOW Normal [facility] Comment on above: Result Comment: ADA RECOMMENDED LIMIT 4.0 - 6.0 ADA THERAPEUTIC TARGET < 7.0 ACTION SUGGESTED > 7.0 Performed By: #### A 1C ####[facility] [address] [place] [address]Dr. Ricky Valenzuela Glucose [Mass/Vol] 160 mg/dL Normal [facility] Comment on above: Performed By: #### A 1C ####[facility] [address] [place] [address]DrPasquale Valenzuela HbA1c (Bld) [Mass fraction] 7.2 % Critically high 4.5-6.2 [facility] Comment on above: Performed By: #### A 1C ####[facility] [address] [place] [address]DrPasquale Valenzuela MICROALBUMIN, RAND URon mALB <1.3 Normal <=30.0 [facility] Comment on above: Performed By: #### M ALBR #### [facility] [address] [place] [address] [address] Ricky Valenzuela PROF 14(COMP METB)on 023 Albumin [Mass/Vol] 3.3 g/dL Critically low 3.4-5.0 [facility] Comment on above: Performed By: #### C MP #### [facility] [address] [place] [address] [address] Ricky Valenzuela Albumin/Globulin [Mass ratio] 0.9 {ratio} Normal [facility] Comment on above: Performed By: #### C MP #### [facility] [address] [place] [address] [address] Ricky Valenzuela ALP [Catalytic activity/Vol] 90 U/L Normal 46-116 [facility] Comment on above: Performed By: #### C MP #### [facility] [address] [place] [address] [address] Ricky Valenzuela ALT [Catalytic activity/Vol] 42 U/L Normal 14-59 [facility] Comment on above: Performed By: #### C MP #### [facility] [address] [place] [address] [address] Ricky Valenzuela Anion gap [Moles/Vol] 10.1 mmol/L Normal [facility] Comment on above: Performed By: #### C MP #### [facility] [address] [place] [address] [address] Ricky Valenzuela AST [Catalytic activity/Vol] 21 U/L Normal 15-37 [facility] Comment on above: Performed By: #### C MP #### [facility] [address] [place] [address] [address] Ricky Valenzuela Bilirubin [Mass/Vol] 0.3 mg/dL Normal 0.2-1.0 [facility] Comment on above: Performed By: #### C MP #### [facility] [address] [place] [address] [address] Ricyk Valenzuela Calcium [Mass/Vol] 9.8 mg/dL Normal 8.5-10.1 [facility] Comment on above: Performed By: #### C MP #### [facility] [address] [place] [address] [address] Ricky Valenzuela Chloride [Moles/Vol] 99 mmol/L Normal 98-107 [facility] Comment on above: Performed By: #### C MP #### [facility] [address] [place] [address] [address] Ricky Valenzuela CO2 [Moles/Vol] 33.7 mmol/L Critically high 21.0-32.0 [facility] Comment on above: Performed By: #### C MP #### [facility] [address] [place] [address] [address] Ricky Valenzuela Creatinine [Mass/Vol] 0.94 mg/dL Normal 0.55-1.02 [facility] Comment on above: Performed By: #### C MP #### [facility] [address] [place] [address] [address] Ricky Valenzuela EGFR-AF [place]IZ[place] >60 Normal >=[address] [facility] Comment on above: Performed By: #### C MP #### [facility] [address] [place] [address] [address] Ricky Valenzuela EGFR-NON AF [place] >60 Normal >=60 [facility] Comment on above: Performed By: #### C MP #### [facility] [address] [place] [address] [address] Ricky Valenzuela Globulin (S) [Mass/Vol] 3.8 g/dL Normal [facility] Comment on above: Performed By: #### C MP #### [facility] [address] [place] [address] [address] Ricky Valenzuela Glucose [Mass/Vol] 168 mg/dL Critically high 74-106 [facility] Comment on above: Performed By: #### C MP #### [facility] [address] [place] [address] Dr. Ricky Valenzuela Potassium [Moles/Vol] 4.8 mmol/L Normal 3.5-5.1 [facility] Comment on above: Performed By: #### C MP #### [facility] [address] [place] [address] [address] Ricky Valenzuela Protein [Mass/Vol] 7.1 g/dL Normal 6.4-8.2 [facility] Comment on above: Performed By: #### C MP #### [facility] [address] [place] [address] Dr. Ricky Valenzuela Sodium [Moles/Vol] 138 mmol/L Normal 136-145 [facility] Comment on above: Performed By: #### C MP #### [facility] [address] [place] [address] [address] Ricky Valenzuela Urea nitrogen [Mass/Vol] 22.0 mg/dL Critically high 7.0-18.0 [facility] Comment on above: Performed By: #### C MP #### [facility] [address] [place] [address] Dr. Ricky Valenzuela Urea nitrogen/Creatinine [Mass ratio] 23.4 mg/mg Normal [facility] Comment on above: Performed By: #### C MP #### [facility] [address] [place] [address] [address] Ricky Valenzuela Cytologyon 08-30-2021 Cytology (NOTE) INTERPRETATION Vaginal material, (ThinPrep vial, Imaging-assisted review): Specimen Adequacy: Satisfactory for evaluation. Descriptive Diagnosis: Negative for intraepithelial lesion or malignancy. Showroom Executive Director: CLARK Delacruz(ASCP) Electronically Signed Out /09/07/2021 Source: A: Vaginal material, (ThinPrep vial, Imaging-assisted review) Clinical History Hysterectomy Surgery: Salpingostomy; Ovary removal Z12.4 Encounter for screening for malignant neoplasm of cervix GYNECOLOGIC CYTOLOGY REPORT Patient Name: KARINA DE OLIVEIRA [facility] Rec: [id number] Path Number: [id number] [facility] ANATOMIC PATHOLOGY [address] [place] [id number] Normal [facility] Comment on above: Performed By: #### P PPVP #### [address] [id number] Tractor Operator Helper: Luca Cummins MD CBC AUTO DIFFon 08-09-2021 BASO # 0.1 103/ul Normal 0.0-0.1 [facility] Comment on above: Performed By: #### C BC #### [facility] [address] [place] [address] Dr. Ricky Valenzuela Basophils/100 WBC (Bld) 0.8 % Normal 0.2-2.0 [facility] Comment on above: Performed By: #### C BC #### [facility] [address] [place] [address] Dr. Ricky Valenzuela EO # 0.2 103/ul Normal 0.0-0.7 [facility] Comment on above: Performed By: #### C BC #### [facility] [address] [place] [address] Dr. Ricky Valenzuela Eosinophils/100 WBC (Bld) 2.1 % Normal 0.9-7.0 [facility] Comment on above: Performed By: #### C BC #### [facility] [address] [place] [address] Dr. Ricky Valenzuela Erythrocyte distribution width (RBC) [Ratio] 15.2 % Critically high 11.0-15.0 [facility] Comment on above: Performed By: #### C BC #### [facility] [address] [place] [address] Dr. Ricky Valenzuela Hematocrit (Bld) [Volume fraction] 41.5 % Normal 36.0-48.0 [facility] Comment on above: Performed By: #### C BC #### [facility] [address] [place] [address] Dr. Ricky Valenzuela Hemoglobin (Bld) [Mass/Vol] 13.5 g/dL Normal 12.0-16.0 [facility] Comment on above: Performed By: #### C BC #### [facility] [address] [place] [address] Dr. Ricky Valenzuela IG # 0.42 10e3/ul Critically high 0.00-0.03 [facility] Comment on above: Performed By: #### C BC #### [facility] [address] [place] [address] Dr. Ricky Valenzuela IG % 3.8 % Critically high 0.0-0.5 [facility] Comment on above: Performed By: #### C BC #### [facility] [address] [place] [address] Dr. Ricky Valenzuela LYMPH # 3.3 103/ul Normal 1.2-3.8 [facility] Comment on above: Performed By: #### C BC #### [facility] [address] [place] [address] Dr. Ricky Valenzuela Lymphocytes/100 WBC (Bld) 29.1 % Normal 20.5-60.0 [facility] Comment on above: Performed By: #### C BC #### [facility] [address] [place] [address] Dr. Ricky Valenzuela MANUAL DIFF REQ NO Normal [facility] Comment on above: Performed By: #### C BC #### [facility] [address] [place] [address] Dr. Ricky Valenzuela MCH (RBC) [Entitic mass] 32.4 pg Normal 26.7-34.0 [facility] Comment on above: Performed By: #### C BC #### [facility] [address] [place] [address] Dr. Ricky Valenzuela MCHC (RBC) [Mass/Vol] 32.5 g/dL Normal 29.9-35.2 [facility] Comment on above: Performed By: #### C BC #### [facility] [address] [place] [address] Dr. Ricky Valenzuela MCV (RBC) [Entitic vol] 99.5 fL Critically high 81.0-99.0 [facility] Comment on above: Performed By: #### C BC #### [facility] [address] [place] [address] Dr. Ricky Valenzuela MONO # 0.8 103/ul Normal 0.3-0.8 [facility] Comment on above: Performed By: #### C BC #### [facility] [address] [place] [address] Dr. Ricky Valenzuela Monocytes/100 WBC (Bld) 7.5 % Normal 1.7-12.0 [facility] Comment on above: Performed By: #### C BC #### [facility] [address] [place] [address] Dr. Ricky Valenzuela NEUT # 6.3 103/ul Normal 1.4-6.5 [facility] Comment on above: Performed By: #### C BC #### [facility] [address] [place] [address] Dr. Ricky Valenzuela Neutrophils/100 WBC (Bld) 56.7 % Normal 43.0-75.0 [facility] Comment on above: Performed By: #### C BC #### [facility] [address] [place] [address] Dr. Ricky Valenzuela Platelet mean volume (Bld) [Entitic vol] 9.8 fL Normal 9.5-13.5 [facility] Comment on above: Performed By: #### C BC #### [facility] [address] [place] [address] Dr. Ricky Valenzuela PLT 265 103/ul Normal 150-450 [facility] Comment on above: Performed By: #### C BC #### [facility] [address] [place], [place] [address] Dr. Ricky Valenzuela RBC 4.17 106/ul Critically low 4.20-5.40 [facility] Comment on above: Performed By: #### C BC #### [facility] [address] [place] [id number] Ricky Valenzuela WBC 11.2 103/ul Critically high 4.0-11.0 [facility] Comment on above: Performed By: #### C BC #### [facility] [address] [id number] Ricky Valenzuela GLYCOHEMOGLOBIN A1Con 2021 ADA RECOMMENDATION SEE BELOW Normal [facility] Comment on above: Result Comment: ADA RECOMMENDED LIMIT 4.0 - 6.0 ADA THERAPEUTIC TARGET < 7.0 ACTION SUGGESTED > 7.0 Performed By: #### A 1C ####[facility] [address] [place] [id number]. Ricky Valenzuela Glucose [Mass/Vol] 183 mg/dL Normal [facility] Comment on above: Performed By: #### A 1C ####[facility] [address] [place] [address]Dr. Ricky Valenzuela HbA1c (Bld) [Mass fraction] 8.0 % Critically high 4.5-6.2 [facility] Comment on above: Performed By: #### A 1C ####[facility] [address] [place] [id number]. Ricky Valenzuela LIPID PROFILEon 08-09-2021 CHOL-HDL RATIO NORM SEE BELOW Normal [facility] Comment on above: Result Comment: 3.3 - 4.4 LOW RISK 4.4 - 7.1 AVERAGE RISK 7.1 - 11.0 MODERATE RISK >11.0 HIGH RISK Performed By: #### C MP, LIPID #### [facility] [address] [place] [address] [address] Ricky Valenzuela Cholesterol [Mass/Vol] 239 mg/dL Critically high <=200 [facility] Comment on above: Performed By: #### C MP, LIPID #### [facility] [address] [place] [address] [address] Ricky Valenzuela Cholesterol in HDL [Mass/Vol] 36 mg/dL Critically low 40-60 [facility] Comment on above: Performed By: #### C MP, LIPID #### [facility] [address] [place] [address] [address] Ricky Valenzuela Cholesterol in LDL [Mass/Vol] 164.2 mg/dL Normal [facility] Comment on above: Performed By: #### C MP, LIPID #### [facility] [address] [place] [address] [address] Ricky Valenzuela Cholesterol.total/Ch olesterol in HDL [Mass ratio] 6.6 {ratio} Normal [facility] Comment on above: Performed By: #### C MP, LIPID #### [facility] [address] [place] [address] [address] Ricky Valenzuela HDL NORMAL > or = 60 mg/dl - LO W CARDIOVASCULAR RISK <40 mg/dl - HIGH CARDIOVASCULAR RISK Normal [facility] Comment on above: Performed By: #### C MP, LIPID #### [facility] [address] [place] [address] [address] Ricky Valenzuela LDL CALC NORMAL SEE BELOW Normal [facility] Comment on above: Result Comment: <100 mg/dl OPTIMAL 100 - 129 mg/dl NEAR OR ABOVE OPTIMAL 130 - 159 mg/dl BORDERLINE HIGH 160 - 189 mg/dl HIGH >190 mg/dl VERY HIGH Performed By: #### C MP, LIPID #### [facility] [address] [place] [address] [address] Ricky Valenzuela Triglyceride [Mass/Vol] 194 mg/dL Critically high <=150 [facility] Comment on above: Performed By: #### C MP, LIPID #### [facility] [address] [place] [address] [address] Ricky Valenzuela VLDL CALC 38.8 mg/dL Normal [facility] Comment on above: Performed By: #### C MP, LIPID #### [facility] [address] [place] [address] [address] Ricky Valenzuela MICROALBUMIN, RAND URon 07-13 mALB 13.1 mg/L Normal <=30.0 [facility] Comment on above: Performed By: #### M ALBR ####[facility] [address] [place] [address]Dr. Ricky Valenzuela PROF 14(COMP METB)on 022 Albumin [Mass/Vol] 3.3 g/dL Critically low 3.4-5.0 [facility] Comment on above: Performed By: #### C MP, LIPID #### [facility] [address] [place] [address] [address] Ricky Valenzuela Albumin/Globulin [Mass ratio] 0.8 {ratio} Normal [facility] Comment on above: Performed By: #### C MP, LIPID #### [facility] [address] [place] [address] [address] Ricky Valenzuela ALP [Catalytic activity/Vol] 93 U/L Normal 46-116 [facility] Comment on above: Performed By: #### C MP, LIPID #### [facility] [address] [place] [address] [address] Ricky Valenzuela ALT [Catalytic activity/Vol] 37 U/L Normal 14-59 [facility] Comment on above: Performed By: #### C MP, LIPID #### [facility] [address] [place] [address] [address] Ricky Valenzuela Anion gap [Moles/Vol] 10.9 mmol/L Normal [facility] Comment on above: Performed By: #### C MP, LIPID #### [facility] [address] [place] [address] [address] Ricky Valenzuela AST [Catalytic activity/Vol] 10 U/L Critically low 15-37 [facility] Comment on above: Performed By: #### C MP, LIPID #### [facility] [address] [place] [address] [address] Ricky Valenzuela Bilirubin [Mass/Vol] 0.2 mg/dL Normal 0.2-1.0 [facility] Comment on above: Performed By: #### C MP, LIPID #### [facility] [address] [place] [address] [address] Ricky Valenzuela Calcium [Mass/Vol] 9.0 mg/dL Normal 8.5-10.1 [facility] Comment on above: Performed By: #### C MP, LIPID #### [facility] [address] [place] [address] [address] Ricky Valenzuela Chloride [Moles/Vol] 100 mmol/L Normal 98-107 [facility] Comment on above: Performed By: #### C MP, LIPID #### [facility] [address] [place] [address] Dr. Ricky Valenzuela CO2 [Moles/Vol] 32.2 mmol/L Critically high 21.0-32.0 [facility] Comment on above: Performed By: #### C MP, LIPID #### [facility] [address] [place] [address] Dr. Ricky Valenzuela Creatinine [Mass/Vol] 0.95 mg/dL Normal 0.55-1.02 [facility] Comment on above: Performed By: #### C MP, LIPID #### [facility] [address] [place] [address] Dr. Ricky Valenzuela EGFR-AF [place] >60 Normal >=60 [facility] Comment on above: Performed By: #### C MP, LIPID #### [facility] [address] [place] [address] Dr. Ricky Valenzuela EGFR-NON AF [place] >60 Normal >=60 [facility] Comment on above: Performed By: #### C MP, LIPID #### [facility] [address] [place] [address] Dr. Ricky Valenzuela Globulin (S) [Mass/Vol] 4.2 g/dL Normal [facility] Comment on above: Performed By: #### C MP, LIPID #### [facility] [address] [place] [address] Dr. Ricky Valenzuela Glucose [Mass/Vol] 200 mg/dL Critically high 74-[address] [facility] Comment on above: Performed By: #### C MP, LIPID #### [facility] [address] [place] [address] [address] Ricky Valenzuela Potassium [Moles/Vol] 4.1 mmol/L Normal 3.5-5.1 [facility] Comment on above: Performed By: #### C MP, LIPID #### [facility] [address] [place] [address] [address] Ricky Valenzuela Protein [Mass/Vol] 7.5 g/dL Normal 6.4-8.2 [facility] Comment on above: Performed By: #### C MP, LIPID #### [facility] [address] [place] [address] [address] Ricky Valenzuela Sodium [Moles/Vol] 139 mmol/L Normal 136-145 [facility] Comment on above: Performed By: #### C MP, LIPID #### [facility] [address] [place] [address] Dr. Ricky Valenzuela Urea nitrogen [Mass/Vol] 13.0 mg/dL Normal 7.0-18.0 [facility] Comment on above: Performed By: #### C MP, LIPID #### [facility] [address] [place] [address] [address] Ricky Valenzuela Urea nitrogen/Creatinine [Mass ratio] 13.7 mg/mg Normal [facility] Comment on above: Performed By: #### C MP, LIPID #### [facility] [address] [place] [address] Dr. Ricky Valenzuela POINT OF CARE GLUCOSEon 06-12 Glucose [Mass/Vol] 176 mg/dL Critically high 74-106 [facility] Comment on above: Performed By: #### P OCGLUC #### [facility] [address] [place] [address] Dr. Ricky Valenzuela Vital Signs Date Time Vital Sign Value Performing Clinician Facility 10-19-2024 11:44-0400 Body temperature 98.1 [degF] Ameena Vera Work Phone: [facility] 10-19-2024 11:44-0400 Body weight 96.41 kg Ameena Vera Work Phone: [facility] 10-19-2024 11:44-0400 Diastolic blood pressure 78 mm[Hg] Ameena Aichholz Work Phone: [facility] 10-19-2024 11:44-0400 Heart rate 93 /min Ameena Aichholz Work Phone: [facility] 10-19-2024 11:44-0400 Respiratory rate 16 /min Ameena Aichholz Work Phone: [facility] 10-19-2024 11:44-0400 SaO2% (BldA) [Mass fraction] 97 % Ameena Aichholz Work Phone: [facility] 10-19-2024 11:44-0400 Systolic blood pressure 138 mm[Hg] Ameena Aichholz Work Phone: [facility] 08-20-2024 11:10-0400 Diastolic blood pressure 58 mm[Hg] Ameena Aichholz DRY TRANSFER WORKER Work Phone: [facility] 08-20-2024 11:10-0400 Systolic blood pressure 90 mm[Hg] Ameena Aichholz DRY TRANSFER WORKER Work Phone: [facility] 08-20-2024 10:37-0400 Body mass index (BMI) [Ratio] 39.74 kg/m2 Ameena Aichholz DRY TRANSFER WORKER Work Phone: [place] [facility] 08-20-2024 10:37-0400 Body temperature 98.49 [degF] Ameena Aichholz DRY TRANSFER WORKER Work Phone: [facility] 08-20-2024 10:37-0400 Body weight 96.98 kg Ameena Aichholz DRY TRANSFER WORKER Work Phone: [facility] 08-20-2024 10:37-0400 Heart rate 101 /min Ameena Aichholz DRY TRANSFER WORKER Work Phone: [facility] 08-20-2024 10:37-0400 Respiratory rate 18 /min Ameena Aichholz DRY TRANSFER WORKER Work Phone: [facility] 08-20-2024 10:37-0400 SaO2% (BldA) [Mass fraction] 93 % Ameena Vera DRY TRANSFER WORKER Work Phone: [facility] 07-29-2024 14:08-0400 Body height 156.2 cm Kasi Bennett MD Work Phone: [facility] 07-29-2024 14:08-0400 Body mass index (BMI) [Ratio] 39.04 kg/m2 Kasi Bennett MD Work Phone: [facility] 07-29-2024 14:08-0400 Body weight 95.25 kg Kasi Bennett MD Work Phone: [facility] 07-29-2024 14:08-0400 Diastolic blood pressure 64 mm[Hg] Kasi Bennett MD Work Phone: [facility] 07-29-2024 14:08-0400 Heart rate 86 /min Kasi Bennett MD Work Phone: [facility] 07-29-2024 14:08-0400 Respiratory rate 18 /min Kasi Bennett MD Work Phone: [facility] 07-29-2024 14:08-0400 SaO2% (BldA) [Mass fraction] 93 % Kasi Bennett MD Work Phone: [facility] 07-29-2024 14:08-0400 Systolic blood pressure 100 mm[Hg] Kasi Bennett MD Work Phone: [facility] 05-28-2024 13:16-0400 Body height 154.94 cm [facility] 05-28-2024 13:16-0400 Body mass index (BMI) [Ratio] 39.4 kg/m2 [facility] 05-28-2024 13:16-0400 Body weight 94.8 kg [facility] 05-19-2024 11:10-0400 Body height 157.5 cm Ameena Vera NP Work Phone: [facility] 05-19-2024 11:10-0400 Body mass index (BMI) [Ratio] 39.03 kg/m2 Ameena Vera DRY TRANSFER WORKER Work Phone: [facility] 05-19-2024 11:10-0400 Body temperature 98.29 [degF] Ameena Sheffieldz DRY TRANSFER WORKER Work Phone: [facility] 05-19-2024 11:10-0400 Body weight 96.8 kg Ameena Sheffieldz DRY TRANSFER WORKER Work Phone: [facility] 05-19-2024 11:10-0400 Diastolic blood pressure 80 mm[Hg] Ameena Sheffieldz DRY TRANSFER WORKER Work Phone: [facility] 05-19-2024 11:10-0400 Heart rate 91 /min Ameena Sheffieldz DRY TRANSFER WORKER Work Phone: [facility] 05-19-2024 11:10-0400 Respiratory rate 18 /min Ameena Sheffieldz DRY TRANSFER WORKER Work Phone: [facility] 05-19-2024 11:10-0400 SaO2% (BldA) [Mass fraction] 96 % Ameena Sheffieldz DRY TRANSFER WORKER Work Phone: [facility] 05-19-2024 11:10-0400 Systolic blood pressure 116 mm[Hg] Ameena Sheffieldz DRY TRANSFER WORKER Work Phone: [facility] 04-21-2024 13:08-0400 Body height 157.5 cm Za Shipmanr DRY TRANSFER WORKER Work Phone: [facility] 04-21-2024 13:08-0400 Body mass index (BMI) [Ratio] 39.51 kg/m2 Za Tikamor DRY TRANSFER WORKER Work Phone: [facility] 04-21-2024 13:08-0400 Body weight 97.98 kg Za Gillmor DRY TRANSFER WORKER Work Phone: [facility] 04-21-2024 13:08-0400 Diastolic blood pressure 86 mm[Hg] Za Gillmor DRY TRANSFER WORKER Work Phone: [facility] 04-21-2024 13:08-0400 Heart rate 96 /min Za Shipmanr DRY TRANSFER WORKER Work Phone: [facility] 04-21-2024 13:08-0400 SaO2% (BldA) [Mass fraction] 93 % Za Shipmanr DRY TRANSFER WORKER Work Phone: [facility] 04-21-2024 13:08-0400 Systolic blood pressure 148 mm[Hg] Za Shipmanr DRY TRANSFER WORKER Work Phone: [facility] 03-30-2024 09:40-0500 Body height 157.5 cm Sonam Drake DRY TRANSFER WORKER Work Phone: [facility] 03-30-2024 09:40-0500 Body mass index (BMI) [Ratio] 39.51 kg/m2 Sonam Drake DRY TRANSFER WORKER Work Phone: [facility] 03-30-2024 09:40-0500 Body temperature 97.3 [degF] Sonam Drake DRY TRANSFER WORKER Work Phone: [facility] 03-30-2024 09:40-0500 Body weight 97.98 kg Sonam Drake DRY TRANSFER WORKER Work Phone: [facility] 03-30-2024 09:40-0500 Diastolic blood pressure 74 mm[Hg] Sonam Drake DRY TRANSFER WORKER Work Phone: [facility] 03-30-2024 09:40-0500 Heart rate 76 /min Sonam Drake DRY TRANSFER WORKER Work Phone: [facility] 03-30-2024 09:40-0500 Respiratory rate 16 /min Sonam Drake DRY TRANSFER WORKER Work Phone: [facility] 03-30-2024 09:40-0500 SaO2% (BldA) [Mass fraction] 98 % Sonam Drake DRY TRANSFER WORKER Work Phone: [facility] 03-30-2024 09:40-0500 Systolic blood pressure 130 mm[Hg] Sonam Drake DRY TRANSFER WORKER Work Phone: [facility] 03-03-2024 10:13-0500 Body height 157.5 cm Sonam Drake DRY TRANSFER WORKER Work Phone: [facility] 03-03-2024 10:13-0500 Body mass index (BMI) [Ratio] 39.51 kg/m2 Sonam Drake DRY TRANSFER WORKER Work Phone: [facility] 03-03-2024 10:13-0500 Body temperature 97.2 [degF] Sonam Drake DRY TRANSFER WORKER Work Phone: [facility] 03-03-2024 10:13-0500 Body weight 97.98 kg Sonam Drake DRY TRANSFER WORKER Work Phone: [facility] 03-03-2024 10:13-0500 Diastolic blood pressure 76 mm[Hg] Sonam Drake DRY TRANSFER WORKER Work Phone: [facility] 03-03-2024 10:13-0500 Heart rate 84 /min Sonam Drake DRY TRANSFER WORKER Work Phone: [facility] 03-03-2024 10:13-0500 Respiratory rate 16 /min Sonam Drake DRY TRANSFER WORKER Work Phone: [facility] 03-03-2024 10:13-0500 SaO2% (BldA) [Mass fraction] 96 % Sonam Drake DRY TRANSFER WORKER Work Phone: [facility] 03-03-2024 10:13-0500 Systolic blood pressure 120 mm[Hg] Soanm Drake DRY TRANSFER WORKER Work Phone: [facility] 12-31-2023 10:06-0500 Body height 157.5 cm Sivan Solo DO Work Phone: [facility] 12-31-2023 10:06-0500 Body mass index (BMI) [Ratio] 39.14 kg/m2 Sivan Solo DO Work Phone: [facility] 12-31-2023 10:06-0500 Body weight 97.07 kg Sivan Solo DO Work Phone: [facility] 12-31-2023 10:06-0500 Diastolic blood pressure 72 mm[Hg] Sivan Solo DO Work Phone: [facility] 12-31-2023 10:06-0500 Heart rate 95 /min Sivan Solo DO Work Phone: [facility] 12-31-2023 10:06-0500 SaO2% (BldA) [Mass fraction] 97 % Sivan Solo DO Work Phone: [facility] 12-31-2023 10:06-0500 Systolic blood pressure 118 mm[Hg] Sivan Solo DO Work Phone: [facility] 12-30-2023 10:46-0500 Body mass index (BMI) [Ratio] 40.06 kg/m2 Sonam Drake DRY TRANSFER WORKER Work Phone: [facility] 12-30-2023 10:46-0500 Body weight 99.34 kg Sonam Drake DRY TRANSFER WORKER Work Phone: [facility] 12-30-2023 10:46-0500 Diastolic blood pressure 74 mm[Hg] Sonam Drake DRY TRANSFER WORKER Work Phone: [facility] 12-30-2023 10:46-0500 Heart rate 97 /min Sonam Drake DRY TRANSFER WORKER Work Phone: [facility] 12-30-2023 10:46-0500 SaO2% (BldA) [Mass fraction] 98 % Sonam Drake DRY TRANSFER WORKER Work Phone: [facility] 12-30-2023 10:46-0500 Systolic blood pressure 98 mm[Hg] Sonam Drake DRY TRANSFER WORKER Work Phone: [facility] 10-03-2023 10:07-0400 Body height 157.5 cm Sonam Drake DRY TRANSFER WORKER Work Phone: [facility] 10-03-2023 10:07-0400 Body mass index (BMI) [Ratio] 39.32 kg/m2 Sonam Drake DRY TRANSFER WORKER Work Phone: [facility] 10-03-2023 10:07-0400 Body temperature 97.5 [degF] Sonam Drake DRY TRANSFER WORKER Work Phone: [facility] 10-03-2023 10:07-0400 Body weight 97.52 kg Sonam Drake DRY TRANSFER WORKER Work Phone: [facility] 10-03-2023 10:07-0400 Diastolic blood pressure 70 mm[Hg] Sonam Drake DRY TRANSFER WORKER Work Phone: [facility] 10-03-2023 10:07-0400 Heart rate 107 /min Sonam Drake DRY TRANSFER WORKER Work Phone: [facility] Comment on above: 97% O2 10-03-2023 10:07-0400 Systolic blood pressure 90 mm[Hg] Sonam Drake DRY TRANSFER WORKER Work Phone: [facility] 01-18-2023 09:10-0500 Body height 156.21 cm Elle Hendricks [facility] [employer] Other 01-18-2023 09:10-0500 Body mass index (BMI) [Ratio] 42.82 kg/m2 Elle Hendricks [facility] [employer] Other 01-18-2023 09:10-0500 Body temperature 98.2 [degF] Elle Hendricks [facility] [employer] Other 01-18-2023 09:10-0500 Body weight 104.51 kg Elle Hendricks [facility] [employer] Other 01-18-2023 09:10-0500 Diastolic blood pressure 92 mm[Hg] Elle Hendricks Other [employer] Other 01-18-2023 09:10-0500 Respiratory rate 18 /min Elle Hendricks [facility] [employer] Other 01-18-2023 09:10-0500 SaO2% (BldA) [Mass fraction] 97 % Elle Hendricks [facility] [employer] Other 01-18-2023 09:10-0500 Systolic blood pressure 145 mm[Hg] Elle Hendricks [facility] [employer] Other Encounters Encounter Date Encounter Type Care Provider Facility Start: 10-19-2024 End: 10-19-2024 ambulatory Ameena Vera Work Phone: [facility] Work Phone: Start: 10-19-2024 End: 10-19-2024 Patient encounter procedure Ameena Vera DRY TRANSFER WORKER-C [facility] Work Phone: Start: 10-05-2024 End: 10-05-2024 Refill Jose Chandler MD Work Phone: [facility] Comment on above: Other hyperlipidemia Start: 09-29-2024 End: 09-29-2024 Refill Ameena Vera DRY TRANSFER WORKER Work Phone: [facility] Comment on above: Lumbar back pain Start: 09-23-2024 End: 09-24-2024 Refill Ameena Vera DRY TRANSFER WORKER Work Phone: [facility] Comment on above: Diabetic polyneuropa thy associated with type 2 diabetes mellitus (HCC) Start: 08-20-2024 End: 08-31-2024 ambulatory AMEENA VERA Not Available Comment on above: Bilateral lower extr emity edema; Migraine with aura and without status migrainosus, not intractable ; Type 2 diabetes mellitus with diabetic microalbuminuria, without long-term current use of insulin (HCC); Osteoporosis, unspecified osteoporosis type, unspecified pathological fracture presence Start: 08-20-2024 End: 08-20-2024 Office outpatient visit 25 minutes Ameena Vrea DRY TRANSFER WORKER Work Phone: [facility] Comment on above: Type 2 diabetes cory itus with diabetic microalbuminuria, without long-term current use of insulin (HCC) (Primary Dx); Essential hypertension; Morbid (severe) obesity due to excess calories (E66.01); Cigarette nicotine dependence without complication; Chronic gout of multiple sites, unspecified cause; Gastroesophageal reflux disease without esophagitis; Bilateral lower extremity edema Start: 08-05-2024 End: 08-05-2024 Refill Ameena Chuy DRY TRANSFER WORKER Work Phone: [facility] Comment on above: Chronic gout of mult iple sites, unspecified cause (Primary Dx) Type 2 diabetes cory itus with diabetic microalbuminuria, without long-term current use of insulin (HCC) Start: 08-02-2024 End: 08-04-2024 Refill Jose Chandler MD Work Phone: [facility] Comment on above: Lumbar back pain Start: 07-29-2024 End: 07-29-2024 Bamboo flowsheet Kasi Bennett MD Work Phone: [facility] Start: 07-29-2024 End: 07-29-2024 Bamboo flowsheet Kasi Bennett MD Work Phone: [facility] Start: 07-29-2024 End: 07-29-2024 Office outpatient new 45 minutes Kasi Bennett MD Work Phone: [facility] Comment on above: Hypercalcemia (Prima ry Dx); Low serum parathyroid hormone (PTH); Vitamin D deficiency Start: 07-29-2024 End: 07-29-2024 ambulatory KASI BENNETT Not Available Start: 07-26-2024 End: 07-27-2024 Refill Ameena Aichholz DRY TRANSFER WORKER Work Phone: [facility] Comment on above: Lumbar back pain Start: 07-22-2024 End: 07-22-2024 Refill Jose Chandler MD Work Phone: [facility] Comment on above: Type 2 diabetes cory itus with diabetic microalbuminuria, without long-term current use of insulin ([facility]) Start: 07-14-2024 End: 07-14-2024 Orders Only Ameena Nettiez DRY TRANSFER WORKER Work Phone: [facility] Comment on above: Low serum parathyroi d hormone (PTH) (Primary Dx) Start: 07-09-2024 End: 07-09-2024 Clinisync Result Encounter Ameena Nettiez DRY TRANSFER WORKER Work Phone: [facility] Unsolicited Start: 07-09-2024 End: 07-09-2024 Clinisync Result Encounter Ameena Nettiez DRY TRANSFER WORKER Work Phone: [facility] Unsolicited Start: 06-23-2024 End: 06-23-2024 Refill Ameena Aichholz DRY TRANSFER WORKER Work Phone: [facility] Comment on above: Diabetic polyneuropa thy associated with type 2 diabetes mellitus ([facility]) Start: 06-22-2024 End: 06-22-2024 ambulatory Tanya Crowley MD Facility:[facility] Start: 06-11-2024 End: 06-11-2024 Refill Ameena Aichholz DRY TRANSFER WORKER Work Phone: [facility] Comment on above: Acute non-recurrent sinusitis of other sinus (Primary Dx) Start: 06-03-2024 End: 06-03-2024 Orders Only Ameena Aichholz DRY TRANSFER WORKER Work Phone: [facility] Comment on above: Hypercalcemia (Prima ry Dx); Low serum parathyroid hormone (PTH) Start: 05-28-2024 End: 05-28-2024 Patient encounter procedure [facility] Work Phone: Start: 05-28-2024 End: 05-28-2024 Patient encounter procedure [facility] Start: 05-28-2024 End: 05-28-2024 ambulatory Lui Banks II Facility:[facility] Start: 05-22-2024 End: 05-22-2024 Orders Only Ameena Vera DRY TRANSFER WORKER Work Phone: [facility] Comment on above: Hypercalcemia (Prima ry Dx) Start: 05-21-2024 End: 05-21-2024 Clinisync Result Encounter Ameena Chuy DRY TRANSFER WORKER Work Phone: [facility] Unsolicited Start: 05-21-2024 End: 05-21-2024 Clinisync Result Encounter Ameena Chuy DRY TRANSFER WORKER Work Phone: [facility] Unsolicited Start: 05-19-2024 End: 05-19-2024 Bamboo flowsheet Ameena Aichholz DRY TRANSFER WORKER Work Phone: [facility] Start: 05-19-2024 End: 05-19-2024 Bamboo flowsheet Ameena Aichholz DRY TRANSFER WORKER Work Phone: [facility] Start: 05-19-2024 End: 05-19-2024 ambulatory AMEENA DAYANHOLZ Not Available Start: 05-19-2024 End: 05-19-2024 Office outpatient visit 25 minutes Ameena Chuy DRY TRANSFER WORKER Work Phone: [facility] Comment on above: Type 2 diabetes cory itus with diabetic microalbuminuria, without long-term current use of insulin (CMS/HCC) (Primary Dx); Morbid (severe) obesity due to [...] 2 diabetes mellitus ([facility]) Start: 05-06-2024 End: 05-06-2024 Refill Jose Chandler MD Work Phone: [facility] Comment on above: Bilateral lower extr emity edema (Primary Dx) Start: 04-21-2024 End: 04-21-2024 Bamboo flowsheet Za Wilkerson DRY TRANSFER WORKER Work Phone: [facility] Start: 04-21-2024 End: 04-21-2024 Bamboo flowsheet Za Wilkerson DRY TRANSFER WORKER Work Phone: [facility] Start: 04-21-2024 End: 04-21-2024 ambulatory ZA WILKERSON Not Available Start: 04-21-2024 End: 04-21-2024 Office outpatient visit 25 minutes aZ Wilkerson NP Work Phone: [facility] Comment on above: JANETT (obstructive sle ep apnea) (Primary Dx); Hypersomnia; Snoring; Primary insomnia; Tobacco abuse Start: 03-30-2024 End: 03-30-2024 Bamboo flowsheet Sonam Drake DRY TRANSFER WORKER Work Phone: [facility] Start: 03-30-2024 End: 03-30-2024 Bamboo flowsheet Sonam Drake DRY TRANSFER WORKER Work Phone: [facility] Start: 03-30-2024 [...] current use of [place] Start: 03-30-2024 End: 03-30-2024 Office outpatient visit 15 minutes Sonam Princek DRY TRANSFER WORKER Work Phone: [facility] Comment on above: Type 2 diabetes cory itus with diabetic microalbuminuria, without long-term current use of insulin ([facility] (Primary Dx); Essential hypertension; Other hyperlipidemia ([facility] JANETT (obstructive sleep apnea); Type 2 diabetes mellitus without complication, without long-term current use of insulin ([facility] Start: 03-18-2024 End: 03-18-2024 Clinisync Result Encounter Generic External Data Provider [facility] Unsolicited Start: 03-18-2024 End: 03-18-2024 Clinisync Result Encounter Generic External Data Provider [facility] Unsolicited Start: 03-16-2024 End: 03-16-2024 Refill Sonam Drake DRY TRANSFER WORKER Work Phone: [facility] Comment on above: Gastroesophageal ref lux disease without esophagitis Start: 03-09-2024 End: 03-09-2024 Refill Sonam Drake DRY TRANSFER WORKER Work Phone: [facility] Comment on above: Osteoporosis, unspec ified osteoporosis type, unspecified pathological fracture presence [place] Start: 03-03-2024 End: 03-03-2024 Bamboo flowsheet Sonam Drake DRY TRANSFER WORKER Work Phone: [facility] Start: 03-03-2024 End: 03-03-2024 Bamboo flowsheet Sonam Drake DRY TRANSFER WORKER Work Phone: [facility] Start: 03-03-2024 End: 03-03-2024 ambulatory SONAM DRAKE Not Available Start: 03-03-2024 End: 03-03-2024 Office outpatient visit 10 minutes Sonam Drake DRY TRANSFER WORKER Work Phone: [facility] Comment on above: Upper respiratory in fection with cough and congestion (Primary Dx); Lumbar back pain; Migraine with aura and without status migrainosus, not intractable ([facility]); Type 2 diabetes mellitus with diabetic microalbuminuria, without long-term current use of insulin ([facility]); Diabetic polyneuropathy associated with type 2 diabetes mellitus ([facility]); Other hyperlipidemia ([facility]) Start: 01-30-2024 End: 01-30-2024 Refill Jolly Castaneda MA [facility] Comment on above: Lumbar back pain (Pr imary Dx); Type 2 diabetes mellitus with diabetic microalbuminuria, without long-term current use of insulin ([facility]) Start: 01-14-2024 End: 01-14-2024 Refill Jolyl Castaneda MA [facility] Comment on above: Lumbar back pain Start: 12-31-2023 End: 12-31-2023 Clinisync Result Encounter Sonam Drake DRY TRANSFER WORKER Work Phone: [facility] Unsolicited Start: 12-31-2023 End: 12-31-2023 Clinisync Result Encounter Sonam Drake DRY TRANSFER WORKER Work Phone: [facility] Unsolicited Start: 12-31-2023 End: 12-31-2023 Office consultation new/estab patient 60 min Sivan Banda DO Work Phone: [facility] Comment on above: JANETT (obstructive sle ep apnea) (Primary Dx); Hypersomnia; Snoring; Primary insomnia; Tobacco abuse Start: 12-31-2023 End: 12-31-2023 ambulatory SIVAN BANDA Not Available Start: 12-30-2023 End: 12-30-2023 Bamboo flowsheet Sonam Drake DRY TRANSFER WORKER Work Phone: [facility] Start: 12-30-2023 End: 12-30-2023 Bamboo flowsheet Sonam Valenciatrick DRY TRANSFER WORKER Work Phone: [facility] Start: 12-30-2023 End: 12-30-2023 Office outpatient visit 15 minutes Sonam Drake DRY TRANSFER WORKER Work Phone: [facility] Comment on above: Type 2 diabetes cory itus with diabetic microalbuminuria, without long-term current use of insulin ([facility]) (Primary Dx); Essential hypertension; Other hyperlipidemia ([facility]); Snoring; Mixed urge and stress incontinence Start: 12-30-2023 End: 12-30-2023 ambulatory SONAM DRAKE Not Available Start: 12-17-2023 End: 12-17-2023 Refill Jolly Castandea MA [facility] Comment on above: Migraine with aura a nd without status migrainosus, not intractable ([facility]); Diabetic polyneuropathy associated with type 2 diabetes mellitus ([facility]) Start: 12-17-2023 End: 12-18-2023 Refill Sonam Drake DRY TRANSFER WORKER Work Phone: [facility] Comment on [...] 2 diabetes mellitus ([facility]) Start: 10-04-2023 ambulatory Facility:[facility] Start: 10-03-2023 End: 10-03-2023 Bamboo flowsheet Sonam Princek DRY TRANSFER WORKER Work Phone: [facility] Start: 10-03-2023 End: 10-03-2023 Bamboo flowsheet Sonam Mansfieldzpatrick DRY TRANSFER WORKER Work Phone: [facility] Start: 10-03-2023 End: 10-03-2023 ambulatory SONAM DRAKE Not Available Start: 10-03-2023 End: 10-03-2023 Office outpatient visit 25 minutes Sonam Drake [employer]Y TRANSFER WORKER Work Phone: [facility] Comment on [...] incontinence; Snoring Start: 04-30-2023 End: 04-30-2023 ambulatory [facility] Work Phone: Start: 04-30-2023 End: 04-30-2023 Patient encounter procedure [facility] Work Phone: Start: 03-21-2023 Orders Only Shaikh Maricel HOLLIS Work Phone: [facility] Comment on above: Diabetic polyneuropa thy associated with type 2 diabetes mellitus (CMS/HCC) (Primary Dx) Start: 03-19-2023 End: 03-19-2023 ambulatory Ana Luisa Curtis [facility] [employer] [facility] Other Start: 03-19-2023 Office outpatient vi sit 15 minutes Ana Luisa Curtis [facility] Start: 01-23-2023 End: 01-23-2023 ambulatory Ana Luisa Curtis [facility] [employer] Other Start: 01-23-2023 Office outpatient vi sit 15 minutes Ana Luisa Curtis [facility] Start: 01-18-2023 End: 01-18-2023 ambulatory Elle Hendricks [facility] [employer] Other Start: 01-18-2023 Office outpatient vi sit 15 minutes Elle Hendricks [facility] Start: 09-19-2022 End: 09-19-2022 ambulatory Ana Luisa Curtis [facility] [employer] Other Start: 09-19-2022 Telephone encounter Ana Luisa [facility] Start: 07-12-[address] JONATHAN EDWARDS Facili ty:[facility] Start: 06-07-2022 End: 06-08-[address] JONATHAN EDWARDS Facility:[facility] Start: 05-02-2022 End: 05-02-2022 ambulatory Ana Luisa Curtis Other [facility] [employer] Other Start: 05-02-2022 Office outpatient ne w 30 minutes Ana Luisa Curtis [facility] Start: 04-12-2022 End: 04-13-[address] JONATHAN EDWARDS Facility:[facility] Start: 03-08-2022 End: 03-09-[address] JONATHAN EDWARDS Facility:[facility] Start: 02-16-2022 End: 02-17-[address] JONATHAN EDWARDS Facility:[facility] Start: 02-09-2022 End: 02-10-[address] RICARDO HOLM . Facility:[facility] Start: 11-16-2021 End: 11-17-[address] JONATHAN EDWARDS Facility:[facility] Start: 11-01-2021 End: 11-02-2021 ambulatory CRYS PIERCE . Facility:[facility] Start: 08-30-2021 End: 08-31-2021 ambulatory RADHA SNOWDEN BARCLAY [facility] Start: 08-30-2021 End: 08-30-2021 Subsequent hospital visit by physician Sr Edwards DO Work Phone: [facility] Comment on above: Routine cervical sme ar Start: 08-16-2021 Encounter for genera l adult medical examination without abnormal findings DR RICARDO HOLM . [facility] Start: 08-09-2021 End: 08-10-2021 Encounter for general [...] Start: 08-20-2024 Hemoglobin glycosyla anne a1c Ameena Aichholz DRY TRANSFER WORKER Work Phone: Start: 07-09-2024 ALL BASIC METABOLIC PANEL Ameena Aicbiancaholz [employer]Y TRANSFER WORKER Work Phone: Start: 05-28-2024 Plain radiography of pelvis Start: 05-28-2024 X-ray of right knee, four views Start: 05-21-2024 Radiologic examinati on knee 3 views Ameena Aicherlinda DRY TRANSFER WORKER Work Phone: Start: 05-21-2024 ALL CBC WITH AUTO DIFF Ameena Aichholz DRY TRANSFER WORKER Work Phone: Start: 05-19-2024 Hemoglobin glycosyla anne a1c Ameena Aichholz DRY TRANSFER WORKER Work Phone: Start: 03-30-2024 Hemoglobin glycosyla anne a1c Sonam Drake DRY TRANSFER WORKER Work Phone: Start: 03-18-2024 MM TOMOSYNTHESIS SCR EENING BI Generic External Data Provider Start: 03-18-2024 Mammography Generic Pr ovider Start: 12-31-2023 ALL CBC WITH AUTO DIFF Sonam Drake DRY TRANSFER WORKER Work Phone: Start: 03-20-2023 Mammography Shaikh Marie calero MD Work Phone: Start: 08-30-2021 Microscopic observat ion [Identifier] in Cervix by Cyto stain Sr House DO Work Phone: Plan of Treatment Date Care Activity Detail Author Start: 03-28-2026 Screening for malignant neoplasm of colon [facility] Start: 03-08-2026 Screening for malignant neoplasm of colon [facility] Start: 05-21-2025 Urine screening for protein Diabetes: Urine Protein Screening [facility] Start: 04-06-2025 End: 04-06-2025 Patient encounter procedure 04/06/2025 1:15 PM EST Office Visit [facility] [address] [place] [address] Alicia Monroy MD [address] [place] [address] [facility] Start: 03-30-2025 End: 03-30-2025 Patient encounter procedure [facility] Start: 03-18-2025 Screening for malignant neoplasm of breast Mammogram [facility] Start: 02-20-2025 Hemoglobin A1c measurement Diabetes: Hemoglobin A1C [facility] Start: 12-30-2024 Urine screening for protein Diabetes: Urine Protein Screening [facility] Start: 11-23-2024 End: 11-23-2024 Patient encounter procedure 11/23/2024 1:00 PM EDT Office Visit [facility] [address] [place] [phone] Ameena Vera NP [address] [place] [address] [facility] Start: 11-18-2024 Hemoglobin A1c measurement Diabetes: Hemoglobin A1C [facility] Start: 11-02-2024 End: 11-02-2024 Patient encounter procedure 11/02/2024 10:10 AM EDT Office Visit [facility] [address] [place] [address] Kasi Bennett MD [address] [place] [address] [facility] Start: 10-26-2024 End: 10-26-2024 Patient encounter procedure 10/26/2024 1:20 PM EDT Office Visit [facility] [address] [place] [phone] Za Wilkerson NP [address] [place], [place] [facility] Start: 10-19-2024 End: 10-19-2024 Patient encounter procedure 10/19/2024 11:30 AM EDT Office Visit [facility] [address] [place] [address] Ameena Vera, RONALDO [address] [place] [phone] [facility] Start: 10-12-2024 Influenza vaccination [facility] Start: 09-30-2024 End: 09-30-2024 Patient encounter procedure [facility] Start: 09-27-2024 Hemoglobin A1c measurement Diabetes: Hemoglobin A1C [facility] Start: 08-30-2024 Screening for malignant neoplasm of cervix [facility] Start: 08-20-2024 End: 08-20-2024 Patient encounter procedure 08/20/2024 10:30 AM EDT Office Visit [facility] [address] [place] [address] Ameena Vera, RONALDO [address] [place] [address] [facility] Start: 07-29-2024 End: 07-29-2025 25-hydroxyvitamin D3 [Mass/volume] in Serum or Plasma Vitamin D 25 hydroxy Total Lab Routine Low serum parathyroid hormone (PTH) Hypercalcemia Vitamin D deficiency Expected: 07/29/2024 (Approximate), Expires: 07/29/2025 [facility] Comment on above: Expected: 07/29/2024 (Approximate), Expi res: 07/29/2025 Start: 07-29-2024 End: 07-29-2025 Magnesium [Mass/volume] in Serum or Plasma Magnesium Lab Routine Low serum parathyroid hormone (PTH) Hypercalcemia Expected: 07/29/2024 (Approximate), Expires: 07/29/2025 [facility] Work Phone: Comment on above: Expected: 07/29/2024 (Approximate), Expi res: 07/29/2025 Start: 07-29-2024 End: 07-29-2025 Parathyrin.intact and Calcium panel - Serum or Plasma PTH, intact and calcium Lab Routine Low serum parathyroid hormone (PTH) Hypercalcemia Expected: 07/29/2024 (Approximate), Expires: 07/29/2025 [facility] Comment on above: Expected: 07/29/2024 (Approximate), Expi res: 07/29/2025 Start: 07-29-2024 End: 07-29-2024 Patient encounter procedure [facility] Comment on above: Low serum parathyroid hormone (PTH) Start: 07-29-2024 End: 07-29-2025 Renal function panel Renal function panel Lab Routine Low serum parathyroid hormone (PTH) Hypercalcemia Expected: 07/29/2024 (Approximate), Expires: 07/29/2025 [facility] Comment on above: Expected: 07/29/2024 (Approximate), Expi res: 07/29/2025 Start: 07-26-2024 Urine screening for protein Diabetes: Urine Protein Screening [facility] Start: 07-03-2024 End: 06-03-2025 25-hydroxyvitamin D3 [Mass/volume] in Serum or Plasma Vitamin D 25 hydroxy Lab Routine Hypercalcemia Expected: 07/03/2024 (Approximate), Expires: 06/03/2025 [facility] Comment on above: Expected: 07/03/2024 (Approximate), Expi res: 06/03/2025 Start: 07-03-2024 End: 06-03-2025 Basic metabolic 1998 panel - Serum or Plasma Basic metabolic panel Lab Routine Hypercalcemia Low serum parathyroid hormone (PTH) Expected: 07/03/2024 (Approximate), Expires: 06/03/2025 [facility] Comment on above: Expected: 07/03/2024 (Approximate), Expi res: 06/03/2025 Start: 07-03-2024 End: 06-03-2025 Parathyrin.intact [Mass/volume] in Serum or Plasma PTH, intact Lab Routine Low serum parathyroid hormone (PTH) Expected: 07/03/2024 (Approximate), Expires: 06/03/2025 [facility] Work Phone: Comment on above: Expected: 07/03/2024 (Approximate), Expi res: 06/03/2025 Start: 06-25-2024 End: 06-25-2024 Patient encounter procedure [facility] Start: 05-22-2024 End: 05-22-2025 Parathyrin.intact [Mass/volume] in Serum or Plasma PTH, intact Lab Routine Hypercalcemia Expected: 05/22/2024 (Approximate), Expires: 05/22/2025 [facility] Work Phone: Comment on above: Expected: 05/22/2024 (Approximate), Expi res: 05/22/2025 Start: 05-19-2024 End: 05-19-2025 25-hydroxyvitamin D3 [Mass/volume] in Serum or Plasma Vitamin D 25 hydroxy Lab Routine Hypercalcemia Expected: 05/19/2024 (Approximate), Expires: 05/19/2025 [facility] Comment on above: Expected: 05/19/2024 (Approximate), Expi res: 05/19/2025 Start: 05-19-2024 End: 05-19-2025 CBC W Auto Differential panel - Blood CBC and differential Lab Routine JANETT (obstructive sleep apnea) Cigarette nicotine dependence without complication Expected: 05/19/2024 (Approximate), Expires: 05/19/2025 [facility] Comment on above: Expected: 05/19/2024 (Approximate), Expi res: 05/19/2025 Start: 05-19-2024 End: 05-19-2025 Comprehensive metabolic 2000 panel - Serum or Plasma Comprehensive metabolic panel Lab Routine Other hyperlipidemia Bilateral lower extremity edema Type 2 diabetes mellitus with diabetic microalbuminuria, without long-term current use of insulin ([facility]) Hypercalcemia Essential hypertension Expected: 05/19/2024 (Approximate), Expires: 05/19/2025 [facility] Comment on above: Expected: 05/19/2024 (Approximate), Expi res: 05/19/2025 Start: 05-19-2024 End: 05-19-2025 Lipid 1996 panel - Serum or Plasma Lipid panel Lab Routine Other hyperlipidemia Expected: 05/19/2024 (Approximate), Expires: 05/19/2025 [facility] Work Phone: Comment on above: Expected: 05/19/2024 (Approximate), Expi res: 05/19/2025 Start: 05-19-2024 End: 05-19-2025 Microalbumin/Creatinine panel in random Urine Microalbumin / creatinine, urine ratio Lab Routine Type 2 diabetes mellitus with diabetic microalbuminuria, without long-term current use of insulin ([facility]) Essential hypertension Expected: 05/19/2024 (Approximate), Expires: 05/19/2025 [facility] Comment on above: Expected: 05/19/2024 (Approximate), Expi res: 05/19/2025 Start: 05-19-2024 End: 05-19-2025 Parathyrin.intact [Mass/volume] in Serum or Plasma PTH, intact Lab Routine Hypercalcemia Expected: 05/19/2024 (Approximate), Expires: 05/19/2025 [facility] Comment on above: Expected: 05/19/2024 (Approximate), Expi res: 05/19/2025 Start: 05-19-2024 End: 05-19-2025 Urate [Mass/volume] in Serum or Plasma Uric acid Lab Routine Elevated blood uric acid level Expected: 05/19/2024 (Approximate), Expires: 05/19/2025 [facility] Comment on above: Expected: 05/19/2024 (Approximate), Expi res: 05/19/2025 Start: 05-19-2024 End: 05-19-2025 Urinalysis complete panel - Urine Urinalysis with reflex microscopic (clean catch) Lab Routine Type 2 diabetes mellitus with diabetic microalbuminuria, without long-term current use of insulin ([facility]) Cigarette nicotine dependence without complication Essential hypertension Elevated blood uric acid level Expected: 05/19/2024 (Approximate), Expires: 05/19/2025 [facility] Comment on above: Expected: 05/19/2024 (Approximate), Expi res: 05/19/2025 Start: 05-19-2024 End: 05-19-2025 XR Knee - right 3 Views XR knee 3 views right Imaging Routine Acute pain of right knee Expected: 05/19/2024 (Approximate), Expires: 05/19/2025 [facility] Comment on above: Expected: 05/19/2024 (Approximate), Expi res: 05/19/2025 Start: 05-19-2024 End: 05-19-2024 Patient encounter procedure 05/19/2024 11:00 AM EDT Office Visit [facility] [address] [place] [phone] Ameena Vera NP [address] [place] [address] [facility] Start: 04-21-2024 End: 04-21-2024 Patient encounter procedure 04/21/2024 1:00 PM EDT Office Visit [facility] [address] [place] [address] Za Wilkerson NP [address] [place] [address] [facility] Start: 03-30-2024 End: 03-30-2024 Patient encounter procedure 03/30/2024 11:05 AM EST Office Visit [facility] [address] [place] [phone] Alicia Monroy MD [address] [place] [address] [facility] Start: 03-26-2024 End: 03-26-2024 Patient encounter procedure 03/26/2024 2:00 PM EST Office Visit [facility] [address] [place] [phone] Sonam Drake NP [address] [place] [phone] [facility] Start: 03-24-2024 End: 03-24-2024 Patient encounter procedure [facility] [place] [address] [facility] Start: 03-20-2024 Screening for malignant neoplasm of breast Mammogram [facility] Start: 02-27-2024 End: 02-27-2024 Patient encounter procedure 02/27/2024 11:35 AM EST Office Visit [facility] [address] [place] [phone] Alicia Monroy MD [address] [place] [address] [facility] Start: 02-25-2024 End: 02-25-2024 Patient encounter procedure 02/25/2024 3:30 PM EST Office Visit [facility] [address] [place] [address] Sonam Drake NP [address] [place] [address] [facility] Start: 02-21-2024 Medicare Annual Wellness (AWV) Medicare Annual Wellness (AWV) [facility] Start: 02-12-2024 Glaucoma screening Diabetes: Retinopathy Screening [facility] Start: 01-25-2024 Hemoglobin A1c measurement Diabetes: Hemoglobin A1C [facility] Start: 12-31-2023 End: 12-30-2024 Polysomnography [facility] Routine JANETT (obstructive sleep apnea) Expected: 12/31/2023 (Approximate), Expires: 12/30/2024 [facility] Work Phone: Comment on above: Expected: 12/31/2023 (Approximate), Expi res: 12/30/2024 Start: 12-31-2023 End: 12-31-2023 Patient encounter procedure 12/31/2023 10:00 AM EST Office Visit [facility] [address] [place] [phone] Sivan Banda, DO [address] [place] [address] [facility] [address] Start: 12-30-2023 End: 12-29-2024 CBC W Auto Differential panel - Blood CBC and differential Lab Routine Type 2 diabetes mellitus with diabetic microalbuminuria, without long-term current use of insulin ([facility]) Essential hypertension Expected: 12/30/2023 (Approximate), Expires: 12/29/2024 [facility] Comment on above: Expected: 12/30/2023 (Approximate), Expi res: 12/29/2024 Start: 12-30-2023 End: 12-29-2024 Comprehensive metabolic 2000 panel - Serum or Plasma Comprehensive metabolic panel Lab Routine Type 2 diabetes mellitus with diabetic microalbuminuria, without long-term current use of insulin ([facility]) Essential hypertension Expected: 12/30/2023 (Approximate), Expires: 12/29/2024 [facility] Comment on above: Expected: 12/30/2023 (Approximate), Expi res: 12/29/2024 Start: 12-30-2023 End: 12-29-2024 Hemoglobin A1c/Hemoglobin.total in Blood Hemoglobin A1c Lab Routine Type 2 diabetes mellitus with diabetic microalbuminuria, without long-term current use of insulin ([facility]) Expected: 12/30/2023 (Approximate), Expires: 12/29/2024 [facility] Comment on above: Expected: 12/30/2023 (Approximate), Expi res: 12/29/2024 Start: 12-30-2023 End: 12-30-2023 Patient encounter procedure 12/30/2023 10:30 AM EST Office Visit [facility] [address] [place] [phone] Sonam Drake NP [address] [place] [address] [facility] Start: 11-04-2023 End: 11-04-2023 Patient encounter procedure 11/04/2023 2:30 PM EDT Office Visit [facility] [place] [facility] [address] [place] [address] Sivan Banda DO [address] [place], [place] [id number] [facility] [place] [facility] Start: 10-13-2023 Influenza vaccination Influenza Vaccine (#1) [facility] Start: 08-11-2023 Influenza vaccination Influenza Vaccine (#1) [facility] Comment on above: Postponed from 10/12/2022 (Patient Refus ed) Start: 05-02-2023 End: 05-02-2023 Patient encounter procedure 05/02/2023 2:00 PM EDT Office Visit [facility] [address] [place] [address] Shaikh Connelly MD [address] [place] [address] [facility] Start: 02-17-2023 Hemoglobin A1c measurement Diabetes: Hemoglobin A1C [facility] Start: 09-04-2022 End: 09-04-2022 Patient encounter procedure 09/04/2022 Office Visit Obstetrics and Gynecology Radha Barclay, HADOOP DEVELOPER - CNM [address] [place] [address] [facility] Start: 10-12-2021 Influenza vaccination Flu vaccine (#1) [facility] Start: 10-21-2013 Screening for malignant neoplasm of breast Breast cancer screen [facility] Start: 10-21-2013 Shingles vaccine (1 of 2) Shingles vaccine (1 of 2) [facility] Start: 10-21-2008 Screening for malignant neoplasm of colon [facility] Start: 2003 Lipid panel Lipids [facility] Start: 10-21-1998 Diabetes screen Diabetes screen [facility] Start: 10-21-1993 Screening for malignant neoplasm of cervix [facility] Start: 10-21-1982 DTaP/Tdap/Td vaccine (1 - Tdap) DTaP/Tdap/Td vaccine (1 - Tdap) [facility] Start: 10-21-1982 Urine screening for protein Diabetes: Urine Protein Screening [facility] Start: 10-21-1981 Hepatitis C screening Hepatitis C screen [facility] Start: 10-21-1978 HIV screening HIV screen [facility] Start: 1975 Depression Screen Depression Screen [facility] Start: 04-20-1964 COVID-19 Vaccine (#1) COVID-19 Vaccine (#1) [facility] [employer] Start: 1963 Screening for malignant neoplasm of colon [facility] End: 08-30-2021 Cytopathology procedure, preparation of smear, genital source PAP SMEAR Lab Routine Routine cervical smear 1 Occurrences starting 08/30/2021 until 08/30/2021 [facility] [employer] [facility] Work Phone: Comment on above: 1 Occurrences starting 08/30/2021 until 08/30/2021 Microalbumin/Creatin ine panel in random Urine Microalbumin / creatinine urine ratio Lab Routine Type 2 diabetes mellitus with diabetic microalbuminuria, without long-term current use of insulin ([facility]) Essential hypertension Ordered: 12/30/2023 [facility] Work Phone: Comment on above: Ordered: 12/30/2023 Immunizations Immunization Date Immunization Notes Care Provider [facility] 01-14-2017 influenza, injectabl e, quadrivalent, preservative [facility] 01-14-2017 influenza virus vaccine, unspecified formulation Sonam Drake DRY TRANSFER WORKER Work Phone: [facility] Payers Date Payer Category Payer Self-pay [id number] 2022 Private Health Insurance [id number] 2022 Unknown [id number] [id number] 2022 Unknown 2022 2012 Medicare [id number]. [id number] 1963 Unknown [id number] 2.16.8 40.1.005133.3.579.2.173 1963 Unknown [id number] 2.16.84 0.1.210025.3.579.2.593 1963 Unknown [id number] 2.16.84 0.1.388878.3.579.2.593 1963 Unknown [id number] 2.16.84 0.1.381713.3.579.2.593 1963 Unknown [id number] 2.16.84 0.1.253628.3.579.2.593 1963 Unknown [id number] 2.16.84 0.1.318434.3.579.2.593 1963 Unknown [id number] 2.16.84 0.1.683213.3.579.2.593 1963 Unknown [id number] 2.16.84 0.1.840765.3.579.2.593 1963 Unknown [id number] 2.16.84 0.1.658491.3.579.2.593 1963 Unknown [id number] 2.16.84 0.1.906011.3.579.2.593 1963 Unknown [id number] 2.16.84 0.1.206089.3.579.2.593 1963 Unknown [id number] 2.16.84 0.1.567244.3.579.2.593 1963 Unknown [id number] 2.16.84 0.1.909077.3.579.2.593 1963 Unknown [id number] 2.16.84 0.1.527122.3.579.2.593 1963 Unknown [id number] 2.16.84 0.1.589913.3.579.2.593 1963 Unknown [id number] 2.16.84 0.1.667118.3.579.2.593 1963 Unknown [id number] 2.16.84 0.1.253031.3.579.2.593 1963 Unknown [id number] 2.16. 840.1.962995.3.579.2.196 1963 Unknown [id number] 2.16.8 40.1.409666.3.579.2.1258 1963 Unknown [id number] 2.16.8 40.1.713054.3.579.2.1258 1963 Unknown [id number] 2.16.84 0.1.013481.3.579.2.1258 1963 Unknown [id number] 2.16.84 0.1.011953.3.579.2.1258 1963 Unknown [id number] 2.16.84 0.1.039578.3.579.2.1258 1963 Unknown [id number] 2.16.84 0.1.226688.3.579.2.1258 1963 Unknown [id number] 2.16.84 0.1.180016.3.579.2.1258 1963 Unknown [id number] 2.16.84 0.1.017237.3.579.2.1258 1963 Unknown [id number] 2.16.84 0.1.719349.3.579.2.1258 1963 Unknown [id number] 2.16.84 0.1.501622.3.579.2.9 1959 Medicare [id number] 1.2.840.576194.1.13.239.2.7.3.529740.315 1959 Unknown [id number] 1.2.840.621074.1.13.239.2.7.3.943704.315 1959 Unknown [id number] 2.16.8 40.1.342515.19 Medicare Medicare [id number] 2.16.8 40.1.875153.3.579.2.531 Social History Date Type Detail Facility Start: 08-30-2021 End: 04-21-2024 Tobacco smoking status [facility] Smokes tobacco daily [employer] Phone: History of tobacco use Cigarette Smoker B [facility] [employer] Phone: Start: 08-30-2021 End: 04-21-2024 Tobacco use and exposure Smokeless tobacco non-user [employer] Phone: Start: 08-30-2021 Alcohol intake Current drinke r of alcohol (finding) [employer] Phone: Start: 08-30-2021 History SDOH Alcohol Comment occasional [employer] Phone: Start: 1965 Sex Assigned At Not on file B ON [employer] Phone: Start: 08-20-2021 End: 08-30-2021 Exposure to SARS-CoV-2 (event) Not sure [facility] Start: 02-25-2023 End: 10-02-2023 Sex Assigned At [facility] Start: 01-29-2023 End: 05-20-2024 Tobacco smoking status NHIS Ex-smoker [facility] History of tobacco use Current smoker [facility] Start: 01-29-2023 End: 10-02-2023 Cigarettes smoked current (pack per day) - Reported 0.5 [facility] Start: 02-25-2023 End: 08-20-2024 Alcohol intake Lifetime non-drinker (finding) [facility] Start: 1965 Sex Assigned At Female F [facility] History of tobacco use Passive smoker [...] [facility] Start: 05-29-2024 Sex Female (finding) [facility] Medical Equipment Procedure Code Equipment Code Equipment Origin al Text Equipment Identifier Dates [id number] Start: 06-08-2021 End: 04-21-2024 Clinical Notes 06-20-2021 [...] 6.3%, 94% TIR , 4% high 30 [id number], 6.3%m 93% TIR, and 5% high, 1 [...] MORE THAN 3 TABLETS DAILY Continuous Glucose Store Clerk (Dexcom G7 Store Clerk) device 1 each, Does not apply, Continuous [...] mellitus, without long-term current use of insulin ([facility]) Past Surgical History: Procedure Laterality Date BACK [...] microalbuminuria, without long-term current use of insulin ([facility]) - Primary Check blood sugars daily, notify [...] of the risks of continued smoking: stroke, [place], all forms of cancer, lung disease, and [...] of the risks of continued smoking: stroke, [place], all forms of cancer, lung disease, and [...] Current meds: none documented in this encounter [facility] 08-20-2024 Telephone encount er Note Please call [facility] [place] for copy of diabetic eye exam [place] [facility] 08-20-2024 Miscellaneous Notes Formattin g of this note might be different from the original. Please call [facility] [place] for copy of diabetic eye exam [place] documented in this encounter [facility] 08-20-2024 Instructions Ameena Vera NP - 08/20/2024 10:30 AM EDT Furosemide every other day 1/2 tablet documented in this encounter [facility] 07-29-2024 History of Presen t illness Narrative [...] MORE THAN 3 TABLETS DAILY Continuous Glucose Store Clerk (Dexcom G7 Store Clerk) device 1 each, Does not apply, Continuous [...] months (around 09/28/2024). documented in this encounter [facility] 05-28-2024 Evaluation note Diagnosis Onset Date Resolution Primary osteoarthritis of right knee acute May 28, 2024 12:55pm [facility] Work Phone: 1(720) 287-450504-11-2025 History of Present illness Narrative* Ameena Vera NP - 05/22/2024 7:25 AM EDT par [id number] History of Present illness Narrative* Ameena Vera [...] orthopedic surgeon in the past back in [place] for that knee however she does not [...] orthopedic surgeon in the past back in [place] for that knee however she does not [...] MORE THAN 3 TABLETS DAILY Continuous Glucose Store Clerk (Dexcom G7 Store Clerk) device 1 each, Does not apply, Continuous [...] use of insulin ([facility]) Check blood sugars daily, notify if <70 [...] of the risks of continued smoking: stroke, [place], all forms of cancer, lung disease, and [...] of the risks of continued smoking: stroke, [place], all forms of cancer, lung disease, and [...] migrainosus, not intractable ([facility]) Current meds: maxalt, depakote * Ameena Vera NP - 05/19/2024 6:51 AM EDTAssociated Problem(s): Type 2 diabetes mellitus with diabetic microalbuminuria, without long-term current use of insulin ([facility]) Check blood sugars daily, notify if <70 [...] your JANETT: Dr Banda documented in this [place] [facility] Instructions* Patient Instructions* Ameena Vera NP - 05/19/2024 11:00 AM EDT Fasting labs Get xray knee Referral to Dr Darren Orona documented in this [facility]02-17-2025 Telephone encounter Note* Telephone Encounter - Jolly Castaneda MA - 03/30/2024 11:44 AM EST Pt's sensor fell off, and she needs them refilled please [facility] [id number] Miscellaneous Notes* Telephone Encounter - Jolly Castaneda MA - 03/30/2024 11:44 AM EST Pt's sensor fell off, and she needs them refilled please documented in this [facility]02-17-2025 History of Present illness Narrative* Alicia [...] Examined Right arm Examined Patient wearing nail guatemalan, Denies dark streaks under finger nails, Denies [...] 1 year skin check documented in this encounterMissouri Southern [id number] History of Present illness Narrative* Sonam Drake NP - 03/30/2024 10:04 AM ESTAssociated Problem(s): JANETT (obstructive sleep apnea) Saw Neurology- was diagnosed with severe JANETT. Has been wearing CPAP religiously. Feels more well rested when wearing. Continue current regimen as directed by neurology. * Sonam Drake DRY TRANSFER WORKER - 03/30/2024 9:58 AM ESTAssociated Problem(s): Other hyperlipidemia ([facility]) Crestor 20mg Denies myalgias Continue current regimen. * Sonam Drake NP - 03/30/2024 9:58 AM ESTAssociated Problem(s): Essential hypertension BP consistently under goal in office. Not on any medication regimen. Continue to monitor closely. * Sonam Drake DRY TRANSFER WORKER - 03/30/2024 9:58 AM ESTAssociated Problem(s): Type 2 diabetes mellitus with diabetic microalbuminuria, without long-term current use of insulin ([facility]) Currently taking Metformin Bid and Ozempic 1mg. [...] use of insulin ([facility]) - Primary Currently taking Metformin Bid and [...] (Hb A1C) docked device (Completed) Other hyperlipidemia ([facility]) Crestor 20mg Denies myalgias Continue current regimen. [...] use of insulin ([facility]) documented in this [facility]02-17-2025 Instructions* Patient Instructions* Sonam Drake NP [...] carbohydrates, and simple sugars. documented in this [facility]01-21-2025 History of Present illness Narrative* Sonam [...] use of insulin ([facility]) Relevant Medications metFORMIN (Glucophage) 500 MG tablet Continuous Glucose Store Clerk (Dexcom G7 Store Clerk) device Continuous Glucose Sensor (Dexcom G7 Sensor) [...] aura and without status migrainosus, not intractable (CMS/[facility]) Relevant Medications divalproex (Depakote) 500 MG EC tablet Other hyperlipidemia ([facility]) Relevant Medications rosuvastatin (Crestor) 20 MG tablet Lumbar back pain Relevant Medications diclofenac (Voltaren) 75 MG EC tablet Other Visit Diagnoses Diabetic polyneuropathy associated with type 2 diabetes mellitus ([facility]) Relevant Medications pregabalin (Lyrica) 75 MG capsule documented in this encounterMissouri Southern [id number] Instructions* Patient Instructions* Sonam Drake NP - [...] 1500 calories per day. documented in this [facility]12-19-2024 Telephone encounter Note* Telephone Encounter - Jolly Castaneda MA - 01/30/2024 10:38 AM EST GIOVANNA:12/30/2023 NOV:03/26/2024 [facility] [id number] Miscellaneous Notes* Telephone Encounter - Jolly Castaneda MA - 01/30/2024 10:38 AM EST GIOVANNA:12/30/2023 NOV:03/26/2024 documented in this [facility]12-03-2024 Telephone encounter Note* Telephone Encounter - Jolly Castaneda MA - 01/14/2024 8:34 AM EST GIOVANNA:12/30/2023 NOV:03/26/2023 [facility] [id number] Miscellaneous Notes* Telephone Encounter - Jolly Castaneda MA - 01/14/2024 8:34 AM EST GIOVANNA:12/30/2023 NOV:03/26/2023 documented in this [facility]11-19-2024 History of Present illness Narrative* Sivan Banda DO - 12/31/2023 10:00 AM EST Images from the original note were not included. No chief complaint on file. Subjective SLEEP CONSULT REFERRAL: Snoring, concern for JANETT, needing sleep study - labs @ [facility]; referral received from Sonam Drake CNP. [...] was counseled on the risks of stroke, [place], and sudden with JANETT, along with the [...] to clinic: 2 months documented in this encounterMissouri Southern [id number] History of Present illness Narrative* Sonam Drake [...] ALBUMIN GLOBULIN RATIO 0.8 Resulting Agency [facility] DMII: Metformin Bid and Ozempic Most [...] use of insulin ([facility]) - Primary Currently taking Metformin Bid and [...] JANETT. First appointment tomorrow. documented in this [facility]11-18-2024 Instructions* Patient Instructions* Sonam Drake NP - 12/30/2023 10:30 AM EST FASTING labs ordered. Nothing to eat or drink for 12 hours prior to blood draw. Water and black coffee ok. Call if you need anything! documented in this [facility]11-05-2024 Telephone encounter Note* Telephone Encounter - Jolly Castaneda MA - 12/17/2023 3:39 PM EST GIOVANNA:10/03/2023 NOV:12/30/2023 [facility] [id number] Miscellaneous Notes* Telephone Encounter - Jolly Castaneda MA - 12/17/2023 3:39 PM EST GIOVANNA:10/03/2023 NOV:12/30/2023 documented in this [facility]08-22-2024 History of Present illness Narrative* Sonam Drake NP - 10/03/2023 10:57 AM EDTAssociated Problem(s): Snoring Screening for JANETT- Referral sent to [facility] * Sonam Drake NP - 10/03/2023 10:35 [...] R ALBUMIN GLOBULIN RATIO 0.8 Resulting Agency [facility] DMII: Metformin Bid and Ozempic Most [...] for JANETT- Referral sent to [facility] Other Visit Diagnoses Type 2 diabetes mellitus without complication, without long-term current use of insulin ([facility]) Relevant Medications semaglutide (Ozempic, 1 MG/DOSE,) 4 MG/3ML solution pen-injector Diabetic polyneuropathy associated with type 2 diabetes mellitus ([facility]/HCC) Relevant Medications pregabalin (Lyrica) 75 MG capsule documented in this encounterMissouri Southern [id number] Instructions* Patient Instructions* Sonam Drake NP - [...] if you need anything! documented in this encounterMissouri Southern [id number] Evaluation note* Encounter Date Diagnosis Assessment Notes [...] Left hand pain (ICD- 10 - M79.642) [facility] 12-13-2023 Evaluation note* Encounter Date Diagnosis [...] noted. Patient will f/u in 4 weeks. [facility] 12-08-2023 Evaluation note* Encounter Date Diagnosis [...] hand x-ray that was performed at [facility] which revealed degenerative changes in the hand as well as a remote avulsion fracture of the thumb. Patient states her family doctor is treating her for gout in her hand. Jan, History of gout (ICD-10 - Z87.39) Jan, Other Gout material w as printed [facility] Other 08-09-2023 Evaluation note* Encounter Date Diagnosis Assessment Notes Treatment Notes Treatment Clinical Notes Sep, Right wrist pain (ICD-10 - M25.531) [facility] Other 04-27-2023 NoteCONSULTATION CONSULTATION DATE: 06/07/2022 TO: [...] our patients to inform us about any nrvw-lds-fohbhuh medications or herbal remedies/nutritional supplements/alternative remedies. 2. [...] treatment options with their primary care provider.[id number] Evaluation note * Encounter Date Diagnosis Assessment [...] understanding and is agreeable to treatment plan. [facility] 01-26-2023 NoteCONSULTATION PROCEDURE DATE: 03/08/2022 PREOPERATIVE [...] will be followed up in the clinic.[id number] NotePROCEDURE: XR KNEE LT 4V or > [...] Electronically authenticated by: PATTIE SALTER Date: 2022-02-16 11:29[facility]12-30-2022 NoteCONSULTATION CONSULTATION DATE: 02/09/2022 HISTORY OF [...] office today. Patient agrees with this plan.[id number] NotePROCEDURE: XR WRIST RT MIN 3 V COMPARISON: None. HISTORY: Injury of right wrist FINDINGS: BONES:No acute fracture or dislocation. Corticated bone fragment identified along the first carpometacarpal joint [degenerative in nature SOFT TISSUES:Moderate diffuse soft tissue swelling EFFUSION:None visible. OTHER: Negative. IMPRESSION: Soft tissue swelling, no acute fracture Electronically authenticated by: RYAN GOLDMAN Date: 2021-11-16 18:59[id number] NoteCONSULTATION CONSULTATION DATE: 11/01/2021 HISTORY OF PRESENT [...] otherwise indicated. Patient agrees with this plan.[id number] NoteCONSULTATION PROCEDURE DATE: 11/01/2021 PRE AND POSTOPERATIVE [...] will be followed up in the clinic.[id number] NoteCONSULTATION PROCEDURE DATE: 08/09/2021 PREOPERATIVE DIAGNOSIS: Bilateral [...] will be followed up in the clinic. [facility] Signed and Approved by: CRYS PIERCE . 08/10/2021 13:37:00[facility]06-08-2022 NoteCONSULTATION CONSULTATION DATE: 07/19/2021 HISTORY OF [...] and Approved by: CRYS PIERCE . 07/20/2021 10:33:00[facility]05-25-2022 NotePROCEDURE: XR FOOT RT MIN 3 [...] Electronically authenticated by: PATTIE SALTER Date: 2021-07-05 11:11[facility]05-10-2022 NoteCONSULTATION CONSULTATION DATE: 06/20/2021 CHIEF COMPLAINT: [...] like to proceed. CC: Jonathan Edwards M.D. [facility] Signed and Approved by: DR RICARDO HOLM . 06/27/2021 10:40:00[facility]* Diagnosis Routine cervical smear Screening for malignant neoplasm of the cervix documented in this encounter [facility] Work Phone: evaluation note* Diagnosis Diabetic polyneuropathy associated with type 2 diabetes mellitus (CMS/HCC)- Primary documented in this encounter [facility] HealthcareEvaluation noteNo assessment information availableHolzer Health System Work Phone: Evaluation note* Diagnosis Encounter for [...] diabetes mellitus (CMS/HCC) documented in this encounter [facility] HealthcareEvaluation note* Diagnosis Encounter for screening [...] Tobacco use disorder documented in this encounter [facility] HealthcareEvaluation note* Diagnosis Encounter for screening [...] and stress (male)(female) documented in this encounter [facility] HealthcareEvaluation note* Diagnosis Encounter for screening [...] use of insulin ([facility])- Primary Other hyperlipidemia ([facility]/HCC) Essential hypertension Unspecified essential hypertension Bilateral lower extremity edema Lumbar back pain- Primary Lumbago Hospital discharge follow-up Other follow-up examination Essential hypertension- Primary Unspecified essential hypertension Type 2 diabetes mellitus with diabetic microalbuminuria, without long-term current use of insulin ([facility]) Morbid (severe) obesity due to excess calories (E66.01) Other hyperlipidemia (CMS/HCC) Lumbar back pain Lumbago Type 2 diabetes mellitus without complication, without long-term current use of insulin ([facility]) Diabetic polyneuropathy associated with type 2 diabetes mellitus ([facility]) Mixed urge and stress incontinence Mixed incontinence urge and stress (male)(female) Snoring Other dyspnea and respiratory abnormality Encounter for long-term (current) use of high-risk medication Encounter for long-term (current) use of other medications Type 2 diabetes mellitus with diabetic microalbuminuria, without long-term current use of insulin ([facility])- Primary Essential hypertension Unspecified essential hypertension Other hyperlipidemia ([facility]/HCC) Snoring Other dyspnea and respiratory abnormality Mixed urge and stress incontinence Mixed incontinence urge and stress (male)(female) Lumbar back pain Lumbago documented in this encounter [facility]* Diagnosis Essential hypertension- Primary Unspecified essential hypertension Type 2 diabetes mellitus with diabetic microalbuminuria, without long-term current use of insulin ([facility]) Morbid (severe) obesity due to excess calories (E66.01) Other hyperlipidemia ([facility]) Lumbar back pain Lumbago Type 2 diabetes mellitus without complication, without long-term current use of insulin ([facility]) Diabetic polyneuropathy associated with type 2 diabetes mellitus ([facility]) Mixed urge and stress incontinence Mixed incontinence urge and stress (male)(female) Snoring Other dyspnea and respiratory abnormality documented in this encounter [facility]* Diagnosis Gout, unspecified cause, unspecified chronicity, unspecified site documented in this encounter [facility]* Diagnosis Diabetic polyneuropathy associated with type 2 diabetes mellitus ([facility]/HCC) documented in this encounter [facility]Evaluation [facility]* [...] with routine healing, subsequent encounter Other hyperlipidemia (CMS/[facility]) Hyperuricemia Other abnormal blood chemistry Osteoporosis, unspecified osteoporosis type, unspecified pathological fracture presence (CMS/HCC) Diabetic polyneuropathy associated with type 2 diabetes mellitus (CMS/HCC) Gastroesophageal reflux disease without esophagitis Esophageal reflux Migraine with aura and without status migrainosus, not intractable (CMS/[facility]) Hospital discharge follow-up Other follow-up examination Type [...] use of insulin ([facility]/HCC) Diabetic polyneuropathy associated with type 2 diabetes [...] of insulin (CMS/HCC) documented in this encounter [facility] HealthcareEvaluation note* Diagnosis Encounter for screening [...] Other hyperlipidemia (CMS/HCC) documented in this encounter [facility] HealthcareEvaluation note* Diagnosis Encounter for screening [...] fracture presence (CMS/HCC) documented in this encounter [facility] HealthcareEvaluation note* Diagnosis Encounter for [...] aura and without status migrainosus, not intractable (CMS/[facility]) Hospital discharge follow-up Other follow-up examination Type [...] esophagitis Esophageal reflux documented in this encounter [facility] HealthcareEvaluation note* Diagnosis Encounter for screening [...] of insulin (CMS/HCC) documented in this encounter [facility] HealthcareEvaluation note* Diagnosis Encounter for screening [...] encounter Other hyperlipidemia ([facility]) Hyperuricemia Other abnormal blood chemistry Osteoporosis, unspecified osteoporosis type, unspecified pathological fracture presence ([facility]) Diabetic polyneuropathy associated with type 2 diabetes mellitus ([facility]) Gastroesophageal reflux disease without esophagitis Esophageal reflux Migraine with aura and without status migrainosus, not intractable ([facility]) Hospital discharge follow-up Other follow-up examination Type 2 diabetes mellitus with diabetic microalbuminuria, without long-term current use of insulin ([facility])- Primary Other hyperlipidemia ([facility]) Essential hypertension Unspecified essential hypertension Bilateral lower extremity edema Lumbar back pain- Primary Lumbago Hospital discharge follow-up Other follow-up examination Essential hypertension- Primary Unspecified essential hypertension Type 2 diabetes mellitus with diabetic microalbuminuria, without long-term current use of insulin ([facility]) Morbid (severe) obesity due to excess calories (E66.01) Other hyperlipidemia ([facility]) Lumbar back pain Lumbago Type 2 diabetes mellitus without complication, without long-term current use of insulin ([facility]) Diabetic polyneuropathy associated with type 2 diabetes mellitus ([facility]) Mixed urge and stress incontinence Mixed incontinence urge and stress (male)(female) Snoring Other dyspnea and respiratory abnormality Encounter for long-term (current) use of high-risk medication Encounter for long-term (current) use of other medications Type 2 diabetes mellitus with diabetic microalbuminuria, without long-term current use of insulin ([facility])- Primary Essential hypertension Unspecified essential hypertension Other hyperlipidemia ([facility]) Snoring Other dyspnea and respiratory abnormality Mixed urge and stress incontinence Mixed incontinence urge and stress (male)(female) Upper respiratory infection with cough and congestion- Primary Lumbar back pain Lumbago Migraine with aura and without status migrainosus, not intractable ([facility]) Type 2 diabetes mellitus with diabetic microalbuminuria, without long-term current use of insulin ([facility]) Diabetic polyneuropathy associated with type 2 diabetes mellitus ([facility]) Other hyperlipidemia ([facility]) Hidradenitis suppurativa- Primary Hidradenitis Lentigines Melanocytic nevus [...] of insulin (CMS/HCC) documented in this encounter [facility] HealthcareEvaluation note* Diagnosis Encounter for screening [...] of insulin (CMS/HCC) documented in this encounter [facility] HealthcareEvaluation note* Diagnosis Encounter for screening [...] use of insulin ([facility]) Back spasm Other symptoms referable to back Closed fracture of proximal end of left fibula with routine healing, unspecified fracture morphology, subsequent encounter Closed nondisplaced fracture of second metatarsal bone of left foot with routine healing, subsequent encounter Other hyperlipidemia ([facility]) Hyperuricemia Other abnormal blood chemistry Osteoporosis, unspecified osteoporosis type, unspecified pathological fracture presence ([facility]) Diabetic polyneuropathy associated with type 2 diabetes mellitus ([facility]) Gastroesophageal reflux disease without esophagitis Esophageal reflux Migraine with aura and without status migrainosus, not intractable ([facility]) Hospital discharge follow-up Other follow-up examination Type 2 diabetes mellitus with diabetic microalbuminuria, without long-term current use of insulin ([facility])- Primary Other hyperlipidemia (CMS/HCC) Essential hypertension Unspecified essential hypertension Bilateral lower extremity edema Lumbar back pain- Primary Lumbago Hospital discharge follow-up Other follow-up examination Essential hypertension- Primary Unspecified essential hypertension Type 2 diabetes mellitus with diabetic microalbuminuria, without long-term current use of insulin ([facility]) Morbid (severe) obesity due to excess calories (E66.01) Other hyperlipidemia (CMS/[facility]) Lumbar back pain Lumbago Type 2 diabetes mellitus without complication, without long-term current use of insulin ([facility]) Diabetic polyneuropathy associated with type 2 diabetes mellitus ([facility]) Mixed urge and stress incontinence Mixed incontinence urge and stress (male)(female) Snoring Other dyspnea and respiratory abnormality Encounter for long-term (current) use of high-risk medication Encounter for long-term (current) use of other medications Type 2 diabetes mellitus with diabetic microalbuminuria, without long-term current use of insulin ([facility])- Primary Essential hypertension Unspecified essential hypertension Other hyperlipidemia ([facility]) Snoring Other dyspnea and respiratory abnormality Mixed urge and stress incontinence Mixed incontinence urge and stress (male)(female) Upper respiratory infection with cough and congestion- Primary Lumbar back pain Lumbago Migraine with aura and without status migrainosus, not intractable ([facility]) Type 2 diabetes mellitus with diabetic microalbuminuria, without long-term current use of insulin ([facility]) Diabetic polyneuropathy associated with type 2 diabetes mellitus ([facility]/HCC) Other hyperlipidemia ([facility]/HCC) Type 2 diabetes mellitus with diabetic microalbuminuria, without long-term current use of insulin (CMS/HCC)- Primary Essential hypertension Unspecified essential hypertension Other hyperlipidemia (CMS/HCC) JANETT (obstructive sleep apnea) Obstructive sleep apnea (adult) (pediatric) Type 2 diabetes mellitus without complication, without long-term current use of insulin (CMS/HCC) Bilateral lower extremity edema- Primary documented in this encounter [facility] HealthcareEvaluation note* Diagnosis Encounter for screening [...] diabetes mellitus (CMS/HCC) documented in this encounter [facility] HealthcareEvaluation note* Diagnosis Encounter for screening [...] pathological fracture presence ([facility]) Diabetic polyneuropathy associated with type 2 diabetes mellitus ([facility]) Gastroesophageal reflux disease without esophagitis Esophageal reflux Migraine with aura and without status migrainosus, not intractable ([facility]) Hospital discharge follow-up Other follow-up examination Type 2 diabetes mellitus with diabetic microalbuminuria, without long-term current use of insulin ([facility])- Primary Other hyperlipidemia Essential hypertension Unspecified essential hypertension Bilateral lower extremity edema Lumbar back pain- Primary Lumbago Hospital discharge follow-up Other follow-up examination Essential hypertension- Primary Unspecified essential hypertension Type 2 diabetes mellitus with diabetic microalbuminuria, without long-term current use of insulin ([facility]) Morbid (severe) obesity due to excess calories (E66.01) Other hyperlipidemia Lumbar back pain Lumbago Type 2 diabetes mellitus without complication, without long-term current use of insulin Diabetic polyneuropathy associated with type 2 diabetes mellitus ([facility]) Mixed urge and stress incontinence Mixed incontinence urge and stress (male)(female) Snoring Other dyspnea and respiratory abnormality Encounter for long-term (current) use of high-risk medication Encounter for long-term (current) use of other medications Type 2 diabetes mellitus with diabetic microalbuminuria, without long-term current use of insulin ([facility])- Primary Essential hypertension Unspecified essential hypertension Other hyperlipidemia Snoring Other dyspnea and respiratory abnormality Mixed urge and stress incontinence Mixed incontinence urge and stress (male)(female) Type 2 diabetes mellitus with diabetic microalbuminuria, without long-term current use of insulin ([facility])- Primary Essential hypertension Unspecified essential hypertension Other hyperlipidemia JANETT (obstructive sleep apnea) Obstructive sleep apnea (adult) (pediatric) Type 2 diabetes mellitus without complication, without long-term current use of insulin Type 2 diabetes mellitus with diabetic microalbuminuria, without long-term current use of insulin ([facility])- Primary Morbid (severe) obesity due to excess calories ([facility]) Other hyperlipidemia Body mass index (BMI) 39.0-39.9, [...] (CMS/HCC) Hypercalcemia- Primary documented in this encounter [facility]* Diagnosis Encounter for screening [...] diabetes mellitus (CMS/HCC) documented in this encounter [facility]Evaluation note* Diagnosis Encounter for screening [...] pathological fracture presence ([facility]) Diabetic polyneuropathy associated with type 2 diabetes mellitus ([facility]) Gastroesophageal reflux disease without esophagitis Esophageal reflux Migraine with aura and without status migrainosus, not intractable ([facility]) Hospital discharge follow-up Other follow-up examination Type 2 diabetes mellitus with diabetic microalbuminuria, without long-term current use of insulin ([facility])- Primary Other hyperlipidemia Essential hypertension Unspecified essential hypertension Bilateral lower extremity edema Lumbar back pain- Primary Lumbago Hospital discharge follow-up Other follow-up examination Essential hypertension- Primary Unspecified essential hypertension Type 2 diabetes mellitus with diabetic microalbuminuria, without long-term current use of insulin ([facility]) Morbid (severe) obesity due to excess calories (E66.01) Other hyperlipidemia Lumbar back pain Lumbago Type 2 diabetes mellitus without complication, without long-term current use of insulin Diabetic polyneuropathy associated with type 2 diabetes mellitus ([facility]) Mixed urge and stress incontinence Mixed incontinence urge and stress (male)(female) Snoring Other dyspnea and respiratory abnormality Encounter for long-term (current) use of high-risk medication Encounter for long-term (current) use of other medications Type 2 diabetes mellitus with diabetic microalbuminuria, without long-term current use of insulin ([facility])- Primary Essential hypertension Unspecified essential hypertension Other hyperlipidemia Snoring Other dyspnea and respiratory abnormality Mixed urge and stress incontinence Mixed incontinence urge and stress (male)(female) Type 2 diabetes mellitus with diabetic microalbuminuria, without long-term current use of insulin ([facility])- Primary Essential hypertension Unspecified essential hypertension Other [...] parathyroid hormone (PTH) documented in this encounter [facility] note* Diagnosis Encounter for screening [...] other sinus- Primary documented in this encounter [facility] note* Diagnosis Encounter for screening [...] pathological fracture presence ([facility]) Diabetic polyneuropathy associated with type 2 diabetes mellitus ([facility]) Gastroesophageal reflux disease without esophagitis Esophageal reflux Migraine with aura and without status migrainosus, not intractable ([facility]) Hospital discharge follow-up Other follow-up examination Type 2 diabetes mellitus with diabetic microalbuminuria, without long-term current use of insulin ([facility])- Primary Other hyperlipidemia Essential hypertension Unspecified essential hypertension Bilateral lower extremity edema Lumbar back pain- Primary Lumbago Hospital discharge follow-up Other follow-up examination Essential hypertension- Primary Unspecified essential hypertension Type 2 diabetes mellitus with diabetic microalbuminuria, without long-term current use of insulin ([facility]) Morbid (severe) obesity due to excess calories (E66.01) Other hyperlipidemia Lumbar back pain Lumbago Type 2 diabetes mellitus without complication, without long-term current use of insulin Diabetic polyneuropathy associated with type 2 diabetes mellitus ([facility]) Mixed urge and stress incontinence Mixed incontinence urge and stress (male)(female) Snoring Other dyspnea and respiratory abnormality Encounter for long-term (current) use of high-risk medication Encounter for long-term (current) use of other medications Type 2 diabetes mellitus with diabetic microalbuminuria, without long-term current use of insulin ([facility])- Primary Essential hypertension Unspecified essential hypertension Other hyperlipidemia Snoring Other dyspnea and respiratory abnormality Mixed urge and stress incontinence Mixed incontinence urge and stress (male)(female) Type 2 diabetes mellitus with diabetic microalbuminuria, without long-term current use of insulin ([facility])- Primary Essential hypertension Unspecified essential hypertension Other [...] diabetes mellitus (CMS/HCC) documented in this encounter [facility] note* Diagnosis Encounter for screening [...] aura and without status migrainosus, not intractable (CMS/[facility]) Cigarette nicotine dependence without complication Hypercalcemia Essential [...] of insulin (CMS/HCC) documented in this encounter [facility] note* Diagnosis Encounter for screening [...] hormone (PTH)- Primary documented in this encounter [facility]* Diagnosis Encounter for screening [...] microalbuminuria, without long-term current use of insulin ([facility]) Morbid (severe) obesity due to excess calories [...] microalbuminuria, without long-term current use of insulin ([facility])- Primary Essential hypertension Unspecified essential hypertension Other hyperlipidemia Snoring Other dyspnea and respiratory abnormality Mixed urge and stress incontinence Mixed incontinence urge and stress (male)(female) Type 2 diabetes mellitus with diabetic microalbuminuria, without long-term current use of insulin ([facility])- Primary Essential hypertension Unspecified essential hypertension Other hyperlipidemia JANETT (obstructive sleep apnea) Obstructive sleep apnea (adult) (pediatric) Type 2 diabetes mellitus without complication, without long-term current use of insulin (HCC) Type 2 diabetes mellitus with diabetic microalbuminuria, without long-term current use of insulin ([facility])- Primary Morbid (severe) obesity due to excess calories ([facility]) Other hyperlipidemia Body mass index (BMI) 39.0-39.9, [...] back pain Lumbago documented in this encounter [facility]* Diagnosis Encounter for screening [...] microalbuminuria, without long-term current use of insulin ([facility])- Primary Essential hypertension Unspecified essential hypertension Other [...] Morbid (severe) obesity due to excess calories ([facility]) Other hyperlipidemia Body mass index (BMI) 39.0-39.9, [...] Vitamin D deficiency documented in this encounter [facility]Evaluation note* Diagnosis Encounter for screening [...] Morbid (severe) obesity due to excess calories ([facility]) Other hyperlipidemia Body mass index (BMI) 39.0-39.9, [...] back pain Lumbago documented in this encounter [facility] note* Diagnosis Encounter for screening [...] microalbuminuria, without long-term current use of insulin ([facility])- Primary Essential hypertension Unspecified essential hypertension Other [...] Morbid (severe) obesity due to excess calories ([facility]) Other hyperlipidemia Body mass index (BMI) 39.0-39.9, [...] unspecified cause- Primary documented in this encounter [facility] note* Diagnosis Encounter for screening [...] Morbid (severe) obesity due to excess calories ([facility]) Other hyperlipidemia Body mass index (BMI) 39.0-39.9, [...] microalbuminuria, without long-term current use of insulin ([facility]) documented in this encounter [facility]* Diagnosis Encounter for screening [...] microalbuminuria, without long-term current use of insulin ([facility])- Primary Other hyperlipidemia Essential hypertension Unspecified essential hypertension Bilateral lower extremity edema Lumbar back pain- Primary Lumbago Hospital discharge follow-up Other follow-up examination Essential hypertension- Primary Unspecified essential hypertension Type 2 diabetes mellitus with diabetic microalbuminuria, without long-term current use of insulin ([facility]) Morbid (severe) obesity due to excess calories [...] microalbuminuria, without long-term current use of insulin ([facility])- Primary Essential hypertension Unspecified essential hypertension Other [...] Morbid (severe) obesity due to excess calories ([facility]) Other hyperlipidemia Body mass index (BMI) 39.0-39.9, [...] microalbuminuria, without long-term current use of insulin ([facility])- Primary Essential hypertension Unspecified essential hypertension Morbid (severe) obesity due to excess calories (E66.01) Cigarette nicotine dependence without complication Chronic gout of multiple sites, unspecified cause Gastroesophageal reflux disease without esophagitis Esophageal reflux Bilateral lower extremity edema documented in this encounter [facility]Evaluation note* Diagnosis Encounter for screening mammogram for breast cancer- Primary Encounter for screening for malignant neoplasm of colon Type 2 diabetes mellitus without complication, without long-term current use of insulin ([facility]) Upper respiratory tract infection, unspecified type URTI (acute upper respiratory infection) Acute upper respiratory infections of unspecified site Migraine with aura and without status migrainosus, not intractable- Primary Type 2 diabetes mellitus without complication, without long-term current use of insulin ([facility]) Morbid (severe) obesity due to excess calories (E66.01) Body mass index [BMI] 40.0-44.9, adult (Z68.41) Essential hypertension Unspecified essential hypertension Essential hypertension- Primary Unspecified essential hypertension Type 2 diabetes mellitus without complication, without long-term current use of insulin ([facility]) Back spasm Other symptoms referable to back Closed fracture of proximal end of left fibula with routine healing, unspecified fracture morphology, subsequent encounter Closed nondisplaced fracture of second metatarsal bone of left foot with routine healing, subsequent encounter Other hyperlipidemia Hyperuricemia Other abnormal blood chemistry Osteoporosis, unspecified osteoporosis type, unspecified pathological fracture presence Diabetic polyneuropathy associated with type 2 diabetes mellitus ([facility]) Gastroesophageal reflux disease without esophagitis Esophageal reflux Migraine with aura and without status migrainosus, not intractable Hospital discharge follow-up Other follow-up examination Type 2 diabetes mellitus with diabetic microalbuminuria, without long-term current use of insulin ([facility])- Primary Other hyperlipidemia Essential hypertension Unspecified essential hypertension Bilateral lower extremity edema Lumbar back pain- Primary Lumbago Hospital discharge follow-up Other follow-up examination Essential hypertension- Primary Unspecified essential hypertension Type 2 diabetes mellitus with diabetic microalbuminuria, without long-term current use of insulin ([facility]) Morbid (severe) obesity due to excess calories (E66.01) Other hyperlipidemia Lumbar back pain Lumbago Type 2 diabetes mellitus without complication, without long-term current use of insulin ([facility]) Diabetic polyneuropathy associated with type 2 diabetes mellitus ([facility]) Mixed urge and stress incontinence Mixed incontinence urge and stress (male)(female) Snoring Other dyspnea and respiratory abnormality Encounter for long-term (current) use of high-risk medication Encounter for long-term (current) use of other medications Type 2 diabetes mellitus with diabetic microalbuminuria, without long-term current use of insulin ([facility])- Primary Essential hypertension Unspecified essential hypertension Other hyperlipidemia Snoring Other dyspnea and respiratory abnormality Mixed urge and stress incontinence Mixed incontinence urge and stress (male)(female) Type 2 diabetes mellitus with diabetic microalbuminuria, without long-term current use of insulin ([facility])- Primary Essential hypertension Unspecified essential hypertension Other hyperlipidemia JANETT (obstructive sleep apnea) Obstructive sleep apnea (adult) (pediatric) Type 2 diabetes mellitus without complication, without long-term current use of insulin ([facility]) Type 2 diabetes mellitus with diabetic microalbuminuria, without long-term current use of insulin ([facility])- Primary Morbid (severe) obesity due to excess calories ([facility]) Other hyperlipidemia Body mass index (BMI) 39.0-39.9, [...] polyneuropathy associated with type 2 diabetes mellitus ([facility]) Type 2 diabetes mellitus with diabetic microalbuminuria, [...] pathological fracture presence documented in this encounter [facility]Evaluation note* Diagnosis Encounter for screening [...] microalbuminuria, without long-term current use of insulin ([facility])- Primary Essential hypertension Unspecified essential hypertension Other hyperlipidemia Snoring Other dyspnea and respiratory abnormality Mixed urge and stress incontinence Mixed incontinence urge and stress (male)(female) Type 2 diabetes mellitus with diabetic microalbuminuria, without long-term current use of insulin ([facility])- Primary Essential hypertension Unspecified essential hypertension Other hyperlipidemia JANETT (obstructive sleep apnea) Obstructive sleep apnea (adult) (pediatric) Type 2 diabetes mellitus without complication, without long-term current use of insulin ([facility]) Type 2 diabetes mellitus with diabetic microalbuminuria, without long-term current use of insulin ([facility])- Primary Morbid (severe) obesity due to excess calories ([facility]) Other hyperlipidemia Body mass index (BMI) 39.0-39.9, [...] microalbuminuria, without long-term current use of insulin ([facility])- Primary Essential hypertension Unspecified essential hypertension Morbid (severe) obesity due to excess calories (E66.01) Cigarette nicotine dependence without complication Chronic gout of multiple sites, unspecified cause Gastroesophageal reflux disease without esophagitis Esophageal reflux Bilateral lower extremity edema Diabetic polyneuropathy associated with type 2 diabetes mellitus (HCC) documented in this encounter [facility]Evaluation note* Diagnosis Encounter for screening mammogram for breast cancer- Primary Encounter for screening for malignant neoplasm of colon Type 2 diabetes mellitus without complication, without long-term current use of insulin ([facility]) Upper respiratory tract infection, unspecified type URTI [...] Morbid (severe) obesity due to excess calories ([facility]) Other hyperlipidemia Body mass index (BMI) 39.0-39.9, [...] microalbuminuria, without long-term current use of insulin ([facility])- Primary Essential hypertension Unspecified essential hypertension Morbid (severe) obesity due to excess calories (E66.01) Cigarette nicotine dependence without complication Chronic gout of multiple sites, unspecified cause Gastroesophageal reflux disease without esophagitis Esophageal reflux Bilateral lower extremity edema Lumbar back pain Lumbago documented in this encounter [facility]Evaluation note* Diagnosis Encounter for screening mammogram for breast cancer- Primary Encounter for screening for malignant neoplasm of colon Type 2 diabetes mellitus without complication, without long-term current use of insulin ([facility]) Upper respiratory tract infection, unspecified type URTI (acute upper respiratory infection) Acute upper respiratory infections of unspecified site Migraine with aura and without status migrainosus, not intractable- Primary Type 2 diabetes mellitus without complication, without long-term current use of insulin ([facility]) Morbid (severe) obesity due to excess calories (E66.01) Body mass index [BMI] 40.0-44.9, adult (Z68.41) Essential hypertension Unspecified essential hypertension Essential hypertension- Primary Unspecified essential hypertension Type 2 diabetes mellitus without complication, without long-term current use of insulin ([facility]) Back spasm Other symptoms referable to back [...] microalbuminuria, without long-term current use of insulin ([facility])- Primary Other hyperlipidemia Essential hypertension Unspecified essential hypertension Bilateral lower extremity edema Lumbar back pain- Primary Lumbago Hospital discharge follow-up Other follow-up examination Essential hypertension- Primary Unspecified essential hypertension Type 2 diabetes mellitus with diabetic microalbuminuria, without long-term current use of insulin ([facility]) Morbid (severe) obesity due to excess calories (E66.01) Other hyperlipidemia Lumbar back pain Lumbago Type 2 diabetes mellitus without complication, without long-term current use of insulin ([facility]) Diabetic polyneuropathy associated with type 2 diabetes mellitus ([facility]) Mixed urge and stress incontinence Mixed incontinence urge and stress (male)(female) Snoring Other dyspnea and respiratory abnormality Encounter for long-term (current) use of high-risk medication Encounter for long-term (current) use of other medications Type 2 diabetes mellitus with diabetic microalbuminuria, without long-term current use of insulin ([facility])- Primary Essential hypertension Unspecified essential hypertension Other hyperlipidemia Snoring Other dyspnea and respiratory abnormality Mixed urge and stress incontinence Mixed incontinence urge and stress (male)(female) Type 2 diabetes mellitus with diabetic microalbuminuria, without long-term current use of insulin ([facility])- Primary Essential hypertension Unspecified essential hypertension Other hyperlipidemia JANETT (obstructive sleep apnea) Obstructive sleep apnea (adult) (pediatric) Type 2 diabetes mellitus without complication, without long-term current use of insulin ([facility]) Type 2 diabetes mellitus with diabetic microalbuminuria, without long-term current use of insulin ([facility])- Primary Morbid (severe) obesity due to excess calories ([facility]) Other hyperlipidemia Body mass index (BMI) 39.0-39.9, [...] microalbuminuria, without long-term current use of insulin ([facility])- Primary Essential hypertension Unspecified essential hypertension Morbid [...] History tubal ligation Hospitalization History see above Contractors AID Other Reason for referral (narrative)* Consultation (Routine) - Pending Review Specialty Diagnoses / Procedures Referred By Darren acharya Referred To Contact Neurology Diagnoses Snoring Procedures [place] OFFICE/OUTPATIENT NEW HIGH MDM 60 MINUTES Sonam Drake NP [address] [place] [address] Sivan Banda DO [id number] [place] [address] Referral ID Status Reason Start Date Expiration Date Visits Requested Visits Authorized [id number] Pending Review Specialty Services Required 10/03/2023 03/31/2024 1 1 Scheduling Instructions Please include OV note from today * Consultation (Routine) - Pending Review Specialty Diagnoses / Procedures Referred By Darren acharya Referred To Contact Urology Diagnoses Mixed urge and stress incontinence Procedures [place] OFFICE/OUTPATIENT [facility] 60 MINUTES Sonam Drake NP [address] [place] [address] Skinny Villafuerte MD [address] [place] [address] Referral ID Status Reason Start Date Expiration Date Visits Requested Visits Authorized [id number] Pending Review Specialty Services Required 10/03/2023 03/31/2024 1 1 CRIS FernandezReason for referral (narrative)No reason for referral information availableHolzer Health System Work Phone: Summary Purpose Family History Relationship Condition Age [...] osteoarthritis of right knee Apr 2024 12:55pm Chief Complaint Admit Date Hospital Follow Up October 19, 2024 11:32am Additional Source Comments Care Teams (unrecognized sec tion and content) Maintenance Shop Technician Relationship Specialty Start Date End Date Sr Jonathan Edwards DO [address] [place] [address] PCP - General Family Medicine 08/30/21 Maintenance Shop Technician Relationship Specialty Start Date End Date [...] April 30, 2023 End: April 30, 2023 Maintenance Shop Technician Relationship Specialty Start Date End Date Jose Chandler MD [address] [place] [address] PCP - General Family Medicine 12/12/23 Sonam Drake NP [address] [place] [address] Nurse Practitioner Family Medicine 09/24/23 Maintenance Shop Technician Relationship Specialty Start Date End Date Jose Chandler MD [address] [place] [address] PCP - General Family Medicine 12/12/23 Sonam Drake NP [address] [place] [address] Nurse Practitioner Family Medicine 09/24/23 Maintenance Shop Technician Relationship Specialty Start Date End Date Jose Chandler MD [address] [place] [address] PCP - General Family Medicine 12/12/23 Sonam Drake NP [address] [place] [address] Nurse Practitioner Family Medicine 09/24/23 Maintenance Shop Technician Relationship Specialty Start Date End Date Jose Chandler MD [address] [place] [address] PCP - General Family Medicine 12/12/23 Sonam Drake NP [address] [place] [address] Nurse Practitioner Family Medicine 09/24/23 Maintenance Shop Technician Relationship Specialty Start Date End Date Jose Chandler MD [address] [place] [address] PCP - General Family Medicine 12/12/23 Sonam Drake NP [address] [place] [address] Nurse Practitioner Family Medicine 09/24/23 Maintenance Shop Technician Relationship Specialty Start Date End Date Jose Chandler MD [address] [place] [address] PCP - General Family Medicine 12/12/23 Sonam Drake NP [address] [place] [address] Nurse Practitioner Family Medicine 09/24/23 Maintenance Shop Technician Relationship Specialty Start Date End Date Jose Chandler MD [address] [place] [address] PCP - General Family Medicine 09/24/23 Sonam Drake NP [address] [place] [address] Nurse Practitioner Family Medicine 09/24/23 Maintenance Shop Technician Relationship Specialty Start Date End Date Jose Chandler MD [address] [place] [address] PCP - General Family Medicine 09/24/23 Sonam Drake NP [address] [place] [address] Nurse Practitioner Family Medicine 09/24/23 Maintenance Shop Technician Relationship Specialty Start Date End Date Jose Chandler MD [address] [place] [address] PCP - General Family Medicine 09/24/23 Sonam Drake NP [address] [place] [address] Nurse Practitioner Family Medicine 09/24/23 Maintenance Shop Technician Relationship Specialty Start Date End Date Jose Chandler MD [address] [place] [address] PCP - General Family Medicine 09/24/23 Sonam Drake NP [address] [place] [address] Nurse Practitioner Family Medicine 09/24/23 Maintenance Shop Technician Relationship Specialty Start Date End Date Jose Chandler MD [address] [place] [address] PCP - General Family Medicine 12/12/23 Sonam Drake NP [address] [place] [address] Nurse Practitioner Family Medicine 09/24/23 Maintenance Shop Technician Relationship Specialty Start Date End Date Jose Chandler MD [address] [place] [address] PCP - General Family Medicine 12/12/23 Sonam Drake NP [address] [place] [address] Nurse Practitioner Family Medicine 09/24/23 Maintenance Shop Technician Relationship Specialty Start Date End Date Jose Chandler MD [address] [place] [address] PCP - General Family Medicine 12/12/23 Sonam Drake NP [address] [place] [address] Nurse Practitioner Family Medicine 09/24/23 Maintenance Shop Technician Relationship Specialty Start Date End Date Jose Chandler MD [address] [place] [address] PCP - General Family Medicine 12/12/23 Sonam Drake NP [address] [place] [address] Nurse Practitioner Family Medicine 09/24/23 Maintenance Shop Technician Relationship Specialty Start Date End Date Jose Chandler MD [address] [place] [address] PCP - General Family Medicine 12/12/23 Sonam Drake NP [address] [place] [address] Nurse Practitioner Family Medicine 09/24/23 Maintenance Shop Technician Relationship Specialty Start Date End Date Jose Chandler MD [address] [place] [address] PCP - General Family Medicine 12/12/23 Sonam Drake NP [address] [place] [address] Nurse Practitioner Family Medicine 09/24/23 Maintenance Shop Technician Relationship Specialty Start Date End Date Jose Chandler MD [address] [place] [address] PCP - General Family Medicine 12/12/23 Sonam Drake NP [address] [place] [address] Nurse Practitioner Family Medicine 09/24/23 Maintenance Shop Technician Relationship Specialty Start Date End Date Jose Chandler MD [address] [place] [address] PCP - General Family Medicine 12/12/23 Sonma Drake NP [address] [place] [address] Nurse Practitioner Family Medicine 09/24/23 Maintenance Shop Technician Relationship Specialty Start Date End Date Jose Chandler MD [address] [place] [address] PCP - General Family Medicine 12/12/23 Sonam Drake NP [address] [place] [address] Nurse Practitioner Family Medicine 09/24/23 Maintenance Shop Technician Relationship Specialty Start Date End Date Jose Chandler MD [address] [place] [address] PCP - General Family Medicine 12/12/23 Sonam Drake NP [address] [place] [address] Nurse Practitioner Family Medicine 09/24/23 Maintenance Shop Technician Relationship Specialty Start Date End Date Jose Chandler MD [address] [place] [address] PCP - General Family Medicine 12/12/23 Sonam Drake NP Nurse Practitioner Family Medicine 09/24/23 Za Wilkerson NP [address] [place], [place] Nurse Practitioner Neurology 04/21/24 Sivan Banda DO [address] [place], [place] [address] Referring Physician Neurology 04/21/24 Maintenance Shop Technician Relationship Specialty Start Date End Date Jose Chandler MD [address] [place] [address] PCP - General Family Medicine 12/12/23 Sonam Drake NP Nurse Practitioner Family Medicine 09/24/23 Za Wilkerson NP [address] [place], [place] Nurse Practitioner Neurology 04/21/24 Sivan Banda DO [address] [place], [place] [address] Referring Physician Neurology 04/21/24 Maintenance Shop Technician Relationship Specialty Start Date End Date Jose Chandler MD [address] [place] [address] PCP - General Family Medicine 12/12/23 Sonam Drake NP Nurse Practitioner Family Medicine 09/24/23 Za Wilkerson NP [address] [place], [place] Nurse Practitioner Neurology 04/21/24 Sivan Banda DO [address] [place] [address] Referring Physician Neurology 04/21/24 Maintenance Shop Technician Relationship Specialty Start Date End Date Jose Chandler MD [address] [place] [address] PCP - General Family Medicine 12/12/23 Sonam Drake NP Nurse Practitioner Family Medicine 09/24/23 Za Wilkerson NP [address] [place], [place] Nurse Practitioner Neurology 04/21/24 Sivan Banda DO [address] [place] [address] Referring Physician Neurology 04/21/24 Maintenance Shop Technician Relationship Specialty Start Date End Date Jose Chandler MD [address] [place] [address] PCP - General Family Medicine 12/12/23 Sonam Drake NP Nurse Practitioner Family Medicine 09/24/23 Za Wilkerson NP [address] [place] Nurse Practitioner Neurology 04/21/24 Sivan Banda DO [address] [place] [address] Referring Physician Neurology 04/21/24 Maintenance Shop Technician Relationship Specialty Start Date End Date Jose Chandler MD [address] [place] [address] PCP - General Family Medicine 12/12/23 Sonam Drake NP Nurse Practitioner Family Medicine 09/24/23 Za Wilkerson NP [address] [place] Nurse Practitioner Neurology 04/21/24 Sivan Banda DO [address] [place] [address] Referring Physician Neurology 04/21/24 Maintenance Shop Technician Relationship Specialty Start Date End Date Jose Chandler MD [address] [place] [address] PCP - General Family Medicine 12/12/23 Sonam Drake NP Nurse Practitioner Family Medicine 09/24/23 Za Wilkerson NP [address] [place], [place] Nurse Practitioner Neurology 04/21/24 Sivan Banda DO [address] [place] [address] Referring Physician Neurology 04/21/24 Team Status: Active [...] May 28, 2024 End: May 28, 2024 Maintenance Shop Technician Relationship Specialty Start Date End Date Jose Chandler MD [address] [place] [address] PCP - General Family Medicine 12/12/23 Sonam Drake NP Nurse Practitioner Family Medicine 09/24/23 Za Wilkerson NP [address] [place] Nurse Practitioner Neurology 04/21/24 Sivan Banda DO [address] [place] [address] Referring Physician Neurology 04/21/24 Maintenance Shop Technician Relationship Specialty Start Date End Date Jose Chandler MD [address] [place] [address] PCP - General Family Medicine 12/12/23 Sonam Drake NP Nurse Practitioner Family Medicine 09/24/23 Za Wilkerson, RONALDO [address] [place], [place] Nurse Practitioner Neurology 04/21/24 Sivan Banda DO [address] [place] [address] Referring Physician Neurology 04/21/24 Maintenance Shop Technician Relationship Specialty Start Date End Date Jose Chandler MD [address] [place] [address] PCP - General Family Medicine 12/12/23 Sonam Drake NP Nurse Practitioner Family Medicine 09/24/23 Za Wilkerson NP [address] [place] [address], [place] Nurse Practitioner Neurology 04/21/24 Sivan Banda DO [address] [place] [address] Referring Physician Neurology 04/21/24 Maintenance Shop Technician Relationship Specialty Start Date End Date Jose Chandler MD [address] [place] [address] PCP - General Family Medicine 12/12/23 Sonam Drake NP Nurse Practitioner Family Medicine 09/24/23 Za Wilkerson NP [address] [place] [address] Nurse Practitioner Neurology 04/21/24 Sivan Banda DO [address] [place] [address] Referring Physician Neurology 04/21/24 Maintenance Shop Technician Relationship Specialty Start Date End Date Jose Chandler MD [address] [place] [address] PCP - General Family Medicine 12/12/23 Sonam Drake NP Nurse Practitioner Family Medicine 09/24/23 Za Wilkerson NP [address] [place] [address] Nurse Practitioner Neurology 04/21/24 Sivan Banda DO [address] [place] [address] Referring Physician Neurology 04/21/24 Maintenance Shop Technician Relationship Specialty Start Date End Date Jose Chandler MD [address] [place] [address] PCP - General Family Medicine 12/12/23 Sonam Drake NP Nurse Practitioner Family Medicine 09/24/23 Za Wilkerson NP [address] [place] [address] Nurse Practitioner Neurology 04/21/24 Sivan Banda DO [address] [place] [address] Referring Physician Neurology 04/21/24 Maintenance Shop Technician Relationship Specialty Start Date End Date Jose Chandler MD [address] [place] [address] PCP - General Family Medicine 12/12/23 Sonam Drake NP Nurse Practitioner Family Medicine 09/24/23 Za Wilkerson NP [address] [place] [address] Nurse Practitioner Neurology 04/21/24 Sivan Banda DO [address] [place] [address] Referring Physician Neurology 04/21/24 Maintenance Shop Technician Relationship Specialty Start Date End Date Jose Chandler MD [address] [place] [address] PCP - General Family Medicine 12/12/23 Sonam Drake NP Nurse Practitioner Family Medicine 09/24/23 Za Wilkerson NP [address] [place] [address] Nurse Practitioner Neurology 04/21/24 Sivan Banda DO [address] [place] [id number] Referring Physician Neurology 04/21/24 Maintenance Shop Technician Relationship Specialty Start Date End Date Jose Chandler MD [address] [place] [address] PCP - General Family Medicine 12/12/23 Sonam Drake NP Nurse Practitioner Family Medicine 09/24/23 Za Wilkerson, RONALDO [address] [place] [address] Nurse Practitioner Neurology 04/21/24 Sivan Banda DO [address] [place] [address] Referring Physician Neurology 04/21/24 Maintenance Shop Technician Relationship Specialty Start Date End Date Jose Chandler MD [address] [place] [address] PCP - General Family Medicine 12/12/23 Sonam Drake NP Nurse Practitioner Family Medicine 09/24/23 Za Wilkerson NP [address] [place] [address] Nurse Practitioner Neurology 04/21/24 Sivan Banda DO [address] [place] [address] Referring Physician Neurology 04/21/24 Maintenance Shop Technician Relationship Specialty Start Date End Date Jose Chandler MD [address] [place] [address] PCP - General Family Medicine 12/12/23 Sonam Drake NP Nurse Practitioner Family Medicine 09/24/23 Za Wilkerson NP [address] [place] [address] Nurse Practitioner Neurology 04/21/24 Sivan Banda DO [address] [place] [address] Referring Physician Neurology 04/21/24 Maintenance Shop Technician Relationship Specialty Start Date End Date Jose Chandler MD [address] [place] [address] PCP - General Family Medicine 12/12/23 Sonam Drake NP Nurse Practitioner Family Medicine 09/24/23 Za Wilkerson NP [address] [place] [address] Nurse Practitioner Neurology 04/21/24 Sivan Banda DO [address] [place] [address] Referring Physician Neurology 04/21/24 Maintenance Shop Technician Relationship Specialty Start Date End Date Jose Chandler MD [address] [place] [address] PCP - General Family Medicine 12/12/23 Sonam Drake NP Nurse Practitioner Family Medicine 09/24/23 Za Wilkerson NP [address] [place] [address] Nurse Practitioner Neurology 04/21/24 Sivan Banda DO [address] [place], [place] [address] Referring Physician Neurology 04/21/24 Team Status: Inactive Member Role Status Dates Ameena Vera Primary Care Provider Active Sta rt: October 19, 2024 End: October 19, 2024 Ameena Vera Attending Provider Active Start: October 19, 2024 End: October 19, 2024 INFORMATION SOURCE (unrecogn ized section and content) DATE CREATED AUTHOR 09/10/2021 [facility] DATE CREATED AUTHOR AUTHOR'S ORGANIZ ATION 06/08/2022 [facility] [facility] DATE CREATED AUTHOR AUTHOR'S ORGANIZ ATION 10/06/2023 [facility] DATE CREATED AUTHOR AUTHOR'S ORGANIZ ATION 06/01/2024 [facility] DATE CREATED AUTHOR AUTHOR'S ORGANIZ ATION 07/15/2024 [facility] DATE CREATED AUTHOR AUTHOR'S ORGANIZ ATION 08/24/2024 [facility] EPIC REASON FOR VISIT [...] OFFICE/OUTPATIENT NEW HIGH MDM 60 MINUTES Ameena Vera, RONALDO [address] [place] [address] Phone: tel: fax: Kasi Bennett MD [address] [facility] [address] [place] [address] Phone: tel: fax: Referral ID Status Reason Start Date Expiration Date Visits Requested Visits Authorized [id number] Pending Review Specialty Services Required 07/14/2024 01/10/2025 [...] RECORDS. [facility] [employer] [facility]. provides no warranty or guarantee of the accuracy or completeness of information in this document.
[2024-10-26 10:33] VITALS: BP 121/73; PULSE 86; TEMP 36.6; O2SAT 98
[2024-10-26 11:03] VITALS: BP 159/82; PULSE 91; O2SAT 95
[2024-10-26 11:04] VITALS: BP 146/74; PULSE 94; O2SAT 94
[2024-10-26] MEDS: BUPIVACAINE HCL 0.25% PF 25 MG/10 ML VIAL 2 ML INJ (11:05)
[2024-10-26] MEDS: LIDOCAINE HCL 2% 400 MG/20 ML MDV INJ (11:06)
[2024-10-26] MEDS: IOHEXOL 240 MG/ML - 10 ML VIAL 12 MG INJ (11:06)
[2024-10-26] MEDS: METHYLPREDNISOLONE ACETATE 40 MG/ML VIAL INJ (11:06)
--- NOTE | 2024-10-26 11:10 | W.PM.PROCNOT ---
Date of procedure: 10/26/24 Pre-op diagnosis: Pain due to right sacroiliitis Post-op diagnosis: same as pre-op Procedure: Procedure: Right sacroiliac joint injection Medications: Bupivacaine 0.25% 3cc, depomedrol 40mg After informed consent was obtained, the patient was brought to the medical procedure unit and placed in the prone position, when a timeout was completed verifying correct patient, procedure, site, positioning, implant, and/or special equipment.? The skin overlying the area was prepped and draped in standard sterile fashion using alcohol.? A 25-gauge needle was inserted towards the right sacroiliac joint under direct fluoroscopic imaging.? Needle tip was advanced until the joint was encountered.? We instilled a total of 2 mL of solution.? Postoperatively needles were removed.? The patient tolerated the procedure well without complication.? The patient reported reduction in pain symptoms postoperatively. Anesthesia: Local Surgeon: Tanya Crowley Pathology: none sent Condition: stable Disposition: no change
== END 2024-10-26 11:10 | disposition home or self-care (01) ==
PROVIDERS: PCP Nurse Practitioner; Visit Provider Anesthesiology
DX: M46.1 Sacroiliitis, not elsewhere classified (principal); E11.8 Type 2 diabetes mellitus with unspecified complications; Z79.85 Long-term (current) use of injectable non-insulin antidiabetic drugs; Z79.84 Long term (current) use of oral hypoglycemic drugs
CPT/HCPCS: 27096; 36415; 80069; 82306; 82310; 82948; 83735; 83970; J0665; J1010; Q9966

== ENCOUNTER 2024-10-26 10:05 | Outpatient (OUT) | payer OTHER, MEDICARE, SELFPAY ==
--- OUTSIDE RECORDS SUMMARY | 2024-10-26 10:13 | XMS_ITS | CCD ---
Author Organization [facility] Care Team Providers Care Electronics Technology Instructor Name Role Phone House DO, Sr Jonathan [...] Unavailable HOUSE, DR BASURTO Primary Care Unavailable [place], DR RYAN Guzman Consulting Unavailable HOUSE, DR [...] Unavailable Maricel HOLLIS, Barrios Primary Care Provider [phone] Vidal DRAW OFF WORKER, Sonam Unavailable Jose Chandler MD Primary Care Provider Jose Chandler MD Primary Care Provider [phone] Vidal DRAW OFF WORKER, Sonam Unavailable [phone] Rock HIGGINS, Za Unavailable Sivan Banda DO Unavailable Lui Banks II Attending UnavailLui Alvarado II Admitting Unavailabl e NON STAFF Primary Care Unavailable NON STAFF Primary Care Provider UnavailLui Alvarado MD Attending Provider [phone] Keo HOLLIS, Tanya Esposito Attending Unavailable Rock DRAW OFF WORKER, Za Unavailable SONAM DRAKE Attending SONAM Justin Attending ALICIA Simmons Attending Unavailable ZA WILKERSON Attending Unavailable AMEENA VERA Attending Unavailable KASI BENNETT Attending Unavailable AMEENA VERA Referring Unavailable SONAM DRAKE Attending SONAM Justin Attending SIVAN Hinkle Attending Unavailable SONAM DRAKE Referring AMEENA Figueredo Attending Unavailable Ameena Vera Primary Care Provider [phone] Ameena Vera Attending Provider [phone] Medications Current Medications Medication Drug Class(es) Dates [...] 30 tablet 11/04/2023 12/18/2023 Discontinued Continuous Glucose Instructor Weaving (Dexcom G7 Instructor Weaving) device (20 sources) Start: 03-03-2024 Continuous Glu cose Instructor Weaving (Dexcom G7 Instructor Weaving) device Indications: Type 2 diabetes mellitus with diabetic microalbuminuria, without long-term current use of insulin ([facility]) 1 each continuously 1 each 03/03/2024 Active Start: 03-03-2024 Continuous Glu cose Instructor Weaving (Dexcom G7 Instructor Weaving) device Indications: Type 2 diabetes mellitus with diabetic microalbuminuria, without long-term current use of insulin ([facility]/HCC) 1 each continuously 1 each 03/03/2024 Active [...] Continuous Glu cose Sensor (Dexcom G7 Sensor) [facility] Indications: Type 2 diabetes mellitus with diabetic microalbuminuria, without long-term current use of insulin (CMS/HCC) 1 each continuously 3 each 11 03/30/2024 Active Start: 03-03-2024 End: 03-30-2024 Continuous Glucose Sensor (D excom G7 Sensor) [facility] Indications: Type 2 diabetes mellitus with diabetic microalbuminuria, without long-term current use of insulin (CMS/HCC) 1 each continuously 3 each 11 03/03/2024 03/30/2024 Discontinued (Reorder) Start: 03-03-2024 Continuous Glu cose Sensor (Dexcom G7 Sensor) [facility] Indications: Type 2 diabetes mellitus with diabetic [...] day Active take 1 capsule by mo [facility] twice daily pregabalin (LYRICA) 50 [...] with drug therapy take [facility] Crestor 20 MG [...] not crush, chew, or split. 0 Active Zctmgoaamaqr-Yf-Rjkq-Mineral s (Multiple Vitamin, Womens) Tablet (3 sources) Start: 01-12-2017 End: 01-15-2017 Gsjdndmymhuz-Tw-Iqgh-Mineral s (Multiple Vitamin, Womens) Tablet Discontinued PO Daily January 12, 2017 1:00am January 15, 2017 2:23pm 1 mg dose 1.5 ml semaglutide 1.34 mg/ml pen injector (12 sources) Start: 03-30-2024 End: 05-19-2024 inject 2 mg by subcutaneous injection every week semaglutide (Ozempic) 2 MG/1.5ML solution pen-injector Indications: Type 2 diabetes mellitus with diabetic microalbuminuria, without long-term current use of insulin ([facility]) Inject [...] without long-term current use of insulin ([facility]) Inject [...] Interpretation and review of laboratory results Abnormal [facility] Laboratory - Hematology and Cell countson 08-20-2024 HbA1c (Bld) [Mass fraction] 6.4 % [facility] ALL BASIC METABOLIC PANELon 07-09-2024 Anion gap [Moles/Vol] 11.6 mmol/L [facility] Calcium [Mass/Vol] 9.3 mg/dL 8.5 - 10. 1 mg/dL [facility] Chloride [Moles/Vol] 103 mmol/L 98 - 10 7 mmol/L [facility] CO2 [Moles/Vol] 33 mmol/L High 21.0 - 32.0 mmol/L [facility] Creatinine [Mass/Vol] 0.86 mg/dL 0.55 - 1.02 mg/dL [facility] GFR/1.73 sq M.predicted CKD-EPI (S/P/Bld) [Vol rate/Area] >60 >=60 mL/min/1.73m 2 [facility] Glucose [Mass/Vol] 107 mg/dL High 74 - 106 mg/dL [facility] Interpretation and review of laboratory results Abnormal [facility] Potassium [Moles/Vol] 4.6 mmol/L 3.5 - 5.1 mmol/L [facility] Sodium [Moles/Vol] 143 mmol/L 136 - 145 mmol/L [facility] TBH EGFR-NON AF PERUVIAN >60 >=60 mL/min/1.73m 2 [facility] Urea nitrogen [Mass/Vol] 20 mg/dL High 7.0 - 18.0 mg/dL [facility] Urea nitrogen/Creatinine [Mass ratio] 23.3 mg/mg [facility] X-ray reportOrdered By: Anton Penny on 05-28-2024 Study report [facility] [place] [facility] [address] [place] [address] XRay Report Signed Patient: Karina De Oliveira MR#: [id number] : 1965 Acct:[id number] Age/Sex: 58 / F ADM Date: 5 [facility] Room: Type: REG CLI Attending Dr: Lui Banks II, MD Copies to: Lui Banks MD~ Ordering Provider: Lui Banks MD Date of Service: 05/28/24 XR/XR knee RT 4V*: M25.561 - Pain in right knee ([id number]) XR/XR pelvis 1-2V: M25.561 - Pain in [...] Penny Jr., DPasqualeOPasquale05/28/2024 3:24 PM Dictation Location: [place] [address] Transcribed By: [facility] 05/28/24 1524 Dictated By: Moustapha Penny Jr, DO 05/28/24 1523 Signed By: 05/28/24 1524 [facility] XR knee RT 4V*on 05-28-2024 XR knee RT 4V* [facility] [place] [facility] Formerly named [facility] [place] [address] XRay Report Signed Patient: Karina De Oliveira MR#: [id number] : 1965 Acct:[id number] Age/Sex: 58 / F ADM Date: 05/28/24 Loc: [facility] Room: Type: REG CLI Attending Dr: Lui Banks II, MD Copies to: Lui Banks MD Ordering Provider: Lui Banks MD Date of Service: 05/28/24 XR/XR knee RT 4V*: M25.561 - Pain in right knee ([id number]) XR/XR pelvis 1-2V: M25.561 - Pain in [...] Penny Jr., D.O.05/28/2024 3:24 PM Dictation Location: [place] [address] Transcribed By: [facility] 05/28/24 1524 Dictated By: Moustapha Penny Jr, DO 05/28/24 1523 Signed By: 05/28/24 1524 Normal [facility] ALL CBC WITH AUTO DIFFon [...] 32.6 % 20.5 - 60.0 % [facility] MCH (RBC) [Entitic mass] 32.3 pg 26.7 - 34.0 pg [facility] MCHC (RBC) [Mass/Vol] 33.9 g/dL 29.9 - 35.2 g/dL [facility] MCV (RBC) [Entitic vol] 95.2 fL 81.0 - 99.0 fL [facility] MONOCYTES ABSOLUTE AUTO 0.8 [facility] Monocytes/100 WBC (Bld) 6.9 % 1.7 - 12.0 % [facility] NEUTROPHILS ABSOLUTE AUTO 6.2 [facility] Neutrophils/100 WBC (Bld) 55.4 % 43.0 - 75.0 % [facility] Platelet mean volume (Bld) [Entitic vol] 10.7 fL 9.5 - 13.5 fL [facility] TBH EO # 0.4 [facility] TBH PLT 193 [facility] TBH RBC 4.37 [facility] WBC 11.1 High [facility] XR Knee - right [address] [place] [address] XRay Report Signed Patient: KARINA DE OLIVEIRA MR#: [id number] : 1965 Acct:[id number] Age/Sex: 58 / F ADM Date: 05/21/24 Loc: LAB Attending Dr: Ameena Vera NP Ordering Physician: Ameena Vera NP Date of Service: 05/21/24 Procedure(s): XR knee RT 3V Accession Number(s): [id number] cc: Ameena Vera NP [place] [address] Patient Name: KARINA DE OLIVEIRA MRN: [id number] date: 1965 Sex: F Assigned Patient Location: LAB Current Patient Location: LAB Accession/Order Number: [id number] Exam Date: 05/21/2024 13:21 Report Date: 05/21/2024 [...] Penny Jr., D.O.05/21/2024 1:21 PM Dictation Location: [place] [address] Electronically authenticated by: [id number] Y Date: 05/21/2024 13:21 Dictated By: Moustapha Penny M.D. Signed By: 05/21/24 1324 DD/ 1321 TD/TT: Bareback Rider: [facility] Radiology, Radiologist, MD - 05/21/2024 [place] [address] XRay Report Signed Patient: KARINA DE OLIVEIRA MR#: [id number] : 1965 Acct:[id number] Age/Sex: 58 / F ADM Date: 05/21/24 Loc: LAB Attending Dr: Ameena Vera NP Ordering Physician: Ameena Vera NP Date of Service: 05/21/24 Procedure(s): XR knee RT 3V Accession Number(s): [id number] cc: Ameena Vera NP The [place] [id number] Patient Name: KARINA DE OLIVEIRA MRN: [facility]:[id number] date: 1965 Sex: F Assigned Patient Location: LAB Current Patient Location: LAB Accession/Order Number: [id number] Exam Date: 05/21/2024 13:21 Report Date: 05/21/2024 [...] Penny Jr., D.O.05/21/2024 1:21 PM Dictation Location: [place] [address] Electronically authenticated by: [id number] Y Date: 05/21/2024 13:21 Dictated By: Moustapha Penny M.D. Signed By: 05/21/24 1324 DD/ 1321 TD/TT: Bareback Rider: [facility] Radiology Study observation (narrative) [facility] XR Knee - right 3 ViewsOrder ed By: Radiologist Radiology on 05-21-2024 [facility] Work Phone: HbA1c (Bld) [Mass fraction]o n 05-19-2024 Interpretation and review of laboratory results Abnormal [facility] Laboratory - Hematology and Cell countson 05-19-2024 HbA1c (Bld) [Mass fraction] 6.70 % [facility] HbA1c (Bld) [Mass fraction]o n 03-30-2024 Interpretation and review of laboratory results Abnormal [facility] Laboratory - Hematology and Cell countson 03-30-2024 HbA1c (Bld) [Mass fraction] 6.9 % [facility] MM TOMOSYNTHESIS SCREENING B Ion 03-18-2024 [place] [address] Mammography Report Signed Patient: KARINA DE OLIVEIRA MR#: [id number] : 1965 Acct:[id number] Age/Sex: 58 / F ADM Date: 03/18/24 Loc: MAMMO Attending Dr: RADHA BARCLAY Ordering Physician: RADHA BARCLAY Results: Date of Service: 03/18/24 Follow Up: Procedure(s): MM tomosynthesis screening BI Accession Number(s): [id number] cc: LOCO DRAKE SUSAN Patient Name: KARINA DE OLIVEIRA MR#: [id number] : 1965 Exam Date: 03/18/2024 Ordering Doctor: DR RADHA BARCLAY [facility] RADIOLOGY REPORT PROCEDURE: MM TOMOSYNTHESIS SCREENING [...] at age 69. LOCATION: The [facility] BREAST COMPOSITION: There are scattered areas of [...] Signed By: 03/18/24 1454 DD/ 1454 TD/TT: Bareback Rider: [facility] Radiology, Radiologist, MD - 03/18/2024 [place] [address] Mammography Report Signed Patient: KARINA DE OLIVEIRA MR#: [id number] : 1965 Acct:[id number] Age/Sex: 58 / F ADM Date: 03/18/24 Loc: MAMMO Attending Dr: RADHA BARCLAY Ordering Physician: RADHA BARCLAY Results: Date of Service: 03/18/24 Follow Up: Procedure(s): MM tomosynthesis screening BI Accession Number(s): [id number] cc: LOCO DRAKE SUSAN Patient Name: KARINA DE OLIVEIRA MR#: [id number] : 1965 Exam Date: 03/18/2024 Ordering Doctor: DR RADHA BARCLAY [facility] RADIOLOGY REPORT PROCEDURE: MM TOMOSYNTHESIS SCREENING BI COMPARISON: MM TOMOSYNTHESIS SCREENING BI, 03/20/2023. MG MAMM SCREEN 3D SALINA CAD, 01/31/2021. MG MAMM SCREEN SALINA W CAD, 02/02/2020. MG MAMM SAILNA SCRN W CAD DIG, 01/22/2013. INDICATIONS: Screening for malignant neoplasm Calculator Name NCI Breast Cancer Risk Assessment Tool 5 Year Breast Cancer Risk 1.30% Lifetime Breast Cancer Risk 6.60% Personal Breast Cancer No Personal Ovarian Cancer No Treatments None Family Cancers Grandfather-maternal with prostate cancer at age 70; Mother with skin cancer at age 71. LOCATION: The [facility] BREAST COMPOSITION: There are scattered areas of [...] Signed By: 03/18/24 1454 DD/ 1454 TD/TT: Bareback Rider: [facility] Radiology Study observation (narrative) [facility] MM TOMOSYNTHESIS SCREENING B IOrdered By: Radiologist Radiology on 03-18-2024 [facility] Work Phone: ALL CBC WITH AUTO DIFFon BASOPHILS ABSOLUTE AUTO 0.1 [facility] Basophils/100 WBC (Bld) 0.4 % 0.2 - 2.0 % [facility] Eosinophils/100 WBC (Bld) 3.2 % 0.9 - 7.0 % [facility] Erythrocyte distribution width (RBC) [Ratio] 15.6 % High 11.0 - 15.0 % [facility] Hematocrit (Bld) [Volume fraction] 42.4 % 36.0 - 48.0 % [facility] Hemoglobin (Bld) [Mass/Vol] 13.9 g/dL 12.0 - 16.0 g/dL [facility] IMMATURE GRANULOCYTES ABS AUTO 0.09 High [facility] Immature granulocytes/100 WBC (Bld) 0.7 % High 0.0 - 0.5 % [facility] Interpretation and review of laboratory results Abnormal [facility] LYMPHOCYTES ABSOLUTE AUTO 3.5 [facility] Lymphocytes/100 WBC (Bld) 27.7 % 20.5 - 60.0 % [facility] MCH (RBC) [Entitic mass] 31.4 pg 26.7 - 34.0 pg [facility] MCHC (RBC) [Mass/Vol] 32.8 g/dL 29.9 - 35.2 g/dL [facility] MCV (RBC) [Entitic vol] 95.7 fL 81.0 - 99.0 fL [facility] MONOCYTES ABSOLUTE AUTO 0.9 High [facility] Monocytes/100 WBC (Bld) 7.4 % 1.7 - 12.0 % [facility] NEUTROPHILS ABSOLUTE AUTO 7.7 High [facility] Neutrophils/100 WBC (Bld) 60.6 % 43.0 - 75.0 % [facility] Platelet mean volume (Bld) [Entitic vol] 10.9 fL 9.5 - 13.5 fL [facility] TB EO # 0.4 [facility] TB PLT 219 [facility] RBC 4.43 [facility] WBC 12.8 High [facility] XR LSPINE 2_3 VIEWSon 2022 XR [...] [facility] CBC AUTO DIFFon 04-12-2022 BASO # 0.1 103/ul Normal 0.0-0.1 [facility] Comment on above: Performed By: #### C BC ####[facility] [address] [place] [address]Dr. Ricky Valenzuela Basophils/100 WBC (Bld) 0.5 % Normal 0.2-2.0 [facility] Comment on above: Performed By: #### C BC ####[facility] [address] [place] [address]Dr. Ricky Valenzuela EO # 0.3 103/ul Normal 0.0-0.7 [facility] Comment on above: Performed By: #### C BC ####[facility] [address] [place] [id number]. Ricky Valenzuela Eosinophils/100 WBC (Bld) 3.0 % Normal 0.9-7.0 [facility] Comment on above: Performed By: #### C BC ####[facility] [address] [place] [address]Dr. Ricky Valenzuela Erythrocyte distribution width (RBC) [Ratio] 14.8 % Normal 11.0-15.0 [facility] Comment on above: Performed By: #### C BC ####[facility] [address] [place] [address]Dr. Ricky Valenzuela Hematocrit (Bld) [Volume fraction] 40.6 % Normal 36.0-48.0 [facility] Comment on above: Performed By: #### C BC ####[facility] [address] [place] [address]Dr. Ricky Valenzuela Hemoglobin (Bld) [Mass/Vol] 13.5 g/dL Normal 12.0-16.0 [facility] Comment on above: Performed By: #### C BC ####[facility] [address] [place] [address]Dr. Ricky Valenzuela IG # 0.16 10e3/ul Critically high 0.00-0.03 [facility] Comment on above: Performed By: #### C BC ####[facility] [address] [place] [address]Dr. Ricky Valenzuela IG % 1.4 % Critically high 0.0-0.[address] [facility] Comment on above: Performed By: #### C BC ####[facility] [address] [place] [address]Dr. Ricky Valenzuela LYMPH # 3.4 103/ul Normal 1.2-3.8 [facility] Comment on above: Performed By: #### C BC ####[facility] [address] [place] [address]Dr. Ricky Valenzuela Lymphocytes/100 WBC (Bld) 30.4 % Normal 20.5-60.0 [facility] Comment on above: Performed By: #### C BC ####[facility] [address] [place] [address]Dr. Ricky Valenzuela MANUAL DIFF REQ NO Normal [facility] Comment on above: Performed By: #### C BC ####[facility] [address] [place] [address]Dr. Ricky Valenzuela MCH (RBC) [Entitic mass] 31.8 pg Normal 26.7-34.0 [facility] Comment on above: Performed By: #### C BC ####[facility] [address] [place], [place] [address]Dr. Ricky Valenzuela MCHC (RBC) [Mass/Vol] 33.3 g/dL Normal 29.9-35.2 [facility] Comment on above: Performed By: #### C BC ####[facility] [address] [place] [address]Dr. Ricky Valenzuela MCV (RBC) [Entitic vol] 95.5 fL Normal 81.0-99.0 [facility] Comment on above: Performed By: #### C BC ####[facility] [address] [place] [address]Dr. Ricky Valenzuela MONO # 0.9 103/ul Critically high 0.3-0.[address] [facility] Comment on above: Performed By: #### C BC ####[facility] [address] [place] [address]Dr. Ricky Valenzuela Monocytes/100 WBC (Bld) 7.7 % Normal 1.7-12.0 [facility] Comment on above: Performed By: #### C BC ####[facility] [address] [place] [address]Dr. Ricky Valenzuela NEUT # 6.3 103/ul Normal 1.4-6.5 [facility] Comment on above: Performed By: #### C BC ####[facility] [address] [place] [address]Dr. Ricky Valenzuela Neutrophils/100 WBC (Bld) 57.0 % Normal 43.0-75.0 [facility] Comment on above: Performed By: #### C BC ####[facility] [address] [place] [address]Dr. Ricky Valenzuela Platelet mean volume (Bld) [Entitic vol] 9.8 fL Normal 9.5-13.5 [facility] Comment on above: Performed By: #### C BC ####[facility] [address] [place] [address]Dr. Ricky Valenzuela PLT 246 103/ul Normal 150-450 [facility] Comment on above: Performed By: #### C BC ####[facility] [address] [place] [address]Dr. Ricky Valenzuela RBC 4.25 106/ul Normal 4.20-5.40 [facility] Comment on above: Performed By: #### C BC ####[facility] [address] [place] [address]Dr. Ricky Valenzuela WBC 11.1 103/ul Critically high 4.0-11.0 [facility] Comment on above: Performed By: #### C BC ####[facility] [address] [place] [address]DrPasquale Valenzuela GLYCOHEMOGLOBIN A1Con 2022 ADA RECOMMENDATION SEE BELOW Normal [facility] Comment on above: Result Comment: ADA RECOMMENDED LIMIT 4.0 - 6.0 ADA THERAPEUTIC TARGET < 7.0 ACTION SUGGESTED > 7.0 Performed By: #### A 1C ####[facility] [address] [place] [address]Dr. Ricky Valenzuela Glucose [Mass/Vol] 160 mg/dL Normal [facility] Comment on above: Performed By: #### A 1C ####[facility] [address] [place] [address]DrPasquale Valenzuela HbA1c (Bld) [Mass fraction] 7.2 % Critically high 4.5-6.2 [facility] Comment on above: Performed By: #### A 1C ####[facility] [address] [place] [address]DrPasquale Valenzuela MICROALBUMIN, RAND URon mALB <1.3 Normal <=30.0 [facility] Comment on above: Performed By: #### M ALBR #### [facility] Laboratory [address] [place] [address] [address] Ricky Valenzuela PROF 14(COMP METB)on 023 Albumin [Mass/Vol] 3.3 g/dL Critically low 3.4-5.0 [facility] Comment on above: Performed By: #### C MP #### [facility] Laboratory [address] [place] [address] [address] Ricky Valenzuela Albumin/Globulin [Mass ratio] 0.9 {ratio} Normal [facility] Comment on above: Performed By: #### C MP #### [facility] Laboratory [address] [place] [address] [address] Ricky Valenzuela ALP [Catalytic activity/Vol] 90 U/L Normal 46-116 [facility] Comment on above: Performed By: #### C MP #### [facility] Laboratory [address] [place] [address] [address] Ricky Valenzuela ALT [Catalytic activity/Vol] 42 U/L Normal 14-59 [facility] Comment on above: Performed By: #### C MP #### [facility] Laboratory [address] [place] [address] [address] Ricky Valenzuela Anion gap [Moles/Vol] 10.1 mmol/L Normal [facility] Comment on above: Performed By: #### C MP #### [facility] Laboratory [address] [place] [address] [address] Ricky Valenzuela AST [Catalytic activity/Vol] 21 U/L Normal 15-37 [facility] Comment on above: Performed By: #### C MP #### [facility] Laboratory [address] [place] [address] [address] Ricky Valenzuela Bilirubin [Mass/Vol] 0.3 mg/dL Normal 0.2-1.0 [facility] Comment on above: Performed By: #### C MP #### [facility] Laboratory [address] [place] [address] [address] Ricky Valenzuela Calcium [Mass/Vol] 9.8 mg/dL Normal 8.5-10.1 [facility] Comment on above: Performed By: #### C MP #### [facility] Laboratory [address] [place] [address] [address] Ricky Valenzuela Chloride [Moles/Vol] 99 mmol/L Normal 98-107 [facility] Comment on above: Performed By: #### C MP #### [facility] Laboratory [address] [place] [address] [address] Ricky Valenzuela CO2 [Moles/Vol] 33.7 mmol/L Critically high 21.0-32.0 [facility] Comment on above: Performed By: #### C MP #### [facility] Laboratory [address] [place] [address] [address] Ricky Valenzuela Creatinine [Mass/Vol] 0.94 mg/dL Normal 0.55-1.02 [facility] Comment on above: Performed By: #### C MP #### [facility] [facility] [address] [address] [address] Ricky Valenzuela EGFR-AF PERUVIAN >60 Normal >=60 [facility] Comment on above: Performed By: #### C MP #### [facility] [address] [address] [address] Ricky Valenzuela EGFR-NON AF PERUVIAN >60 Normal >=60 [facility] Comment on above: Performed By: #### C MP #### [facility] [address] [address] [address] Ricky Valenzuela Globulin (S) [Mass/Vol] 3.8 g/dL Normal [facility] Comment on above: Performed By: #### C MP #### [facility] [address] [address] [address] Ricky Valenzuela Glucose [Mass/Vol] 168 mg/dL Critically high 74-106 T [facility] Comment on above: Performed By: #### C MP #### [facility] [address] [place] [address] Dr. Ricky Valenzuela Potassium [Moles/Vol] 4.8 mmol/L Normal 3.5-5.1 [facility] Comment on above: Performed By: #### C MP #### [facility] [address] [address] [address] Ricky Valenzuela Protein [Mass/Vol] 7.1 g/dL Normal 6.4-8.2 [facility] Comment on above: Performed By: #### C MP #### [facility] [address] [place] [address] Dr. Ricky Valenzuela Sodium [Moles/Vol] 138 mmol/L Normal 136-145 [facility] Comment on above: Performed By: #### C MP #### [facility] [address] [address] [address] Ricky Valenzuela Urea nitrogen [Mass/Vol] 22.0 mg/dL Critically high 7.0-18.0 [facility] Comment on above: Performed By: #### C MP #### [facility] [address] [place] [address] Dr. Ricky Valenzuela Urea nitrogen/Creatinine [Mass ratio] 23.4 mg/mg Normal [facility] Comment on above: Performed By: #### C MP #### [facility] [address] [address] [address] Ricky Valenzuela Cytologyon 08-30-2021 Cytology (NOTE) INTERPRETATION Vaginal material, (ThinPrep vial, Imaging-assisted review): Specimen Adequacy: Satisfactory for evaluation. Descriptive Diagnosis: Negative for intraepithelial lesion or malignancy. Operations/Dispatch: CLARK Delacruz(ASCP) Electronically Signed Out /09/07/2021 Source: A: Vaginal material, (ThinPrep vial, Imaging-assisted review) Clinical History Hysterectomy Surgery: Salpingostomy; Ovary removal Z12.4 Encounter for screening for malignant neoplasm of cervix GYNECOLOGIC CYTOLOGY REPORT Patient Name: KARINA DE OLIVEIRA [facility] Rec: [id number] Path Number: [id number] [facility] ANATOMIC PATHOLOGY [address] [place] [id number] Normal [facility] Comment on above: Performed By: #### P PPVP #### [address] [id number] Email Production Consultant: Luca Cummins MD CBC AUTO DIFFon 08-09-2021 BASO # 0.1 103/ul Normal 0.0-0.1 [facility] Comment on above: Performed By: #### C BC #### [facility] [address] [place] [address] Dr. Ricky Valenzuela Basophils/100 WBC (Bld) 0.8 % Normal 0.2-2.0 [facility] Comment on above: Performed By: #### C BC #### [facility] [address] [place] [address] Dr. Ricky Valenzuela EO # 0.2 103/ul Normal 0.0-0.7 [facility] Comment on above: Performed By: #### C BC #### [facility] [address] [place] [address] Dr. Ricky Valenzuela Eosinophils/100 WBC (Bld) 2.1 % Normal 0.9-7.0 [facility] Comment on above: Performed By: #### C BC #### [facility] [address] [place] [address] Dr. Ricky Valenzuela Erythrocyte distribution width (RBC) [Ratio] 15.2 % Critically high 11.0-15.0 [facility] Comment on above: Performed By: #### C BC #### [facility] [address] [place] [address] Dr. Ricky Valenzuela Hematocrit (Bld) [Volume fraction] 41.5 % Normal 36.0-48.0 [facility] Comment on above: Performed By: #### C BC #### [facility] [address] [place] [address] Dr. Ricky Valenzuela Hemoglobin (Bld) [Mass/Vol] 13.5 g/dL Normal 12.0-16.0 [facility] Comment on above: Performed By: #### C BC #### [facility] [address] [place] [address] Dr. Ricky Valenzuela IG # 0.42 10e3/ul Critically high 0.00-0.03 [facility] Comment on above: Performed By: #### C BC #### [facility] [address] [place] [address] Dr. Ricky Valenzuela IG % 3.8 % Critically high 0.0-0.[address] [facility] Comment on above: Performed By: #### C BC #### [facility] [address] [place] [address] Dr. Ricky Valenzuela LYMPH # 3.3 103/ul Normal 1.2-3.8 [facility] Comment on above: Performed By: #### C BC #### [facility] [address] [place] [address] Dr. Ricky Valenzuela Lymphocytes/100 WBC (Bld) 29.1 % Normal 20.5-60.0 [facility] Comment on above: Performed By: #### C BC #### [facility] [address] [place] [address] Dr. Ricky Valenzuela MANUAL DIFF REQ NO Normal [facility] Comment on above: Performed By: #### C BC #### [facility] [address] [place] [address] Dr. Ricky Valenzuela MCH (RBC) [Entitic mass] 32.4 pg Normal 26.7-34.0 [facility] Comment on above: Performed By: #### C BC #### [facility] [address] [place] [address] Dr. Ricky Valenzuela MCHC (RBC) [Mass/Vol] 32.5 g/dL Normal 29.9-35.2 [facility] Comment on above: Performed By: #### C BC #### [facility] [address] [place] [address] Dr. Ricky Valenzuela MCV (RBC) [Entitic vol] 99.5 fL Critically high 81.0-99.0 [facility] Comment on above: Performed By: #### C BC #### [facility] [address] [place] [address] Dr. Ricky Valenzuela MONO # 0.8 103/ul Normal 0.3-0.8 [facility] Comment on above: Performed By: #### C BC #### [facility] [address] [place] [address] Dr. Ricky Valenzuela Monocytes/100 WBC (Bld) 7.5 % Normal 1.7-12.0 [facility] Comment on above: Performed By: #### C BC #### [facility] [address] [place] [address] Dr. Ricky Valenzuela NEUT # 6.3 103/ul Normal 1.4-6.5 [facility] Comment on above: Performed By: #### C BC #### [facility] [address] [place] [address] Dr. Ricky Valenzuela Neutrophils/100 WBC (Bld) 56.7 % Normal 43.0-75.0 [facility] Comment on above: Performed By: #### C BC #### [facility] [address] [place] [address] Dr. Ricky Valenzuela Platelet mean volume (Bld) [Entitic vol] 9.8 fL Normal 9.5-13.5 [facility] Comment on above: Performed By: #### C BC #### [facility] [address] [place] [address] Dr. Ricky Valenzuela PLT 265 103/ul Normal 150-450 [facility] Comment on above: Performed By: #### C BC #### [facility] [address] [place], [place] [address] Dr. Ricky Valenzuela RBC 4.17 106/ul Critically low 4.20-5.40 [facility] Comment on above: Performed By: #### C BC #### [facility] [id number] Ricky Valenzuela WBC 11.2 103/ul Critically high 4.0-11.0 [facility] Comment on above: Performed By: #### C BC #### [facility] [id number] Ricky Valenzuela GLYCOHEMOGLOBIN A1Con 2021 ADA RECOMMENDATION SEE BELOW Normal [facility] Comment on above: Result Comment: ADA RECOMMENDED LIMIT 4.0 - 6.0 ADA THERAPEUTIC TARGET < 7.0 ACTION SUGGESTED > 7.0 Performed By: #### A 1C ####[facility] [id number] [id number] Ricky Valenzuela Glucose [Mass/Vol] 183 mg/dL Normal [facility] Comment on above: Performed By: #### A 1C ####[facility] [id number] [id number][address] Ricky Valenzuela HbA1c (Bld) [Mass fraction] 8.0 % Critically high 4.5-6.2 [facility] Comment on above: Performed By: #### A 1C ####[facility] [id number] [id number] Ricky Valenzuela LIPID PROFILEon 08-09-2021 CHOL-HDL RATIO NORM SEE BELOW Normal [facility] Comment on above: Result Comment: 3.3 - 4.4 LOW RISK 4.4 - 7.1 AVERAGE RISK 7.1 - 11.0 MODERATE RISK >11.0 HIGH RISK Performed By: #### C MP, LIPID #### [facility] [address] [address] [address] Ricky Valenzuela Cholesterol [Mass/Vol] 239 mg/dL Critically high <=200 [facility] Comment on above: Performed By: #### C MP, LIPID #### [facility] [address] [address] [address] Ricky Valenzuela Cholesterol in HDL [Mass/Vol] 36 mg/dL Critically low 40-60 [facility] Comment on above: Performed By: #### C MP, LIPID #### [facility] [address] [address] [address] Ricky Valenzuela Cholesterol in LDL [Mass/Vol] 164.2 mg/dL Normal [facility] Comment on above: Performed By: #### C MP, LIPID #### [facility] [address] [address] [address] Ricky Valenzuela Cholesterol.total/Ch olesterol in HDL [Mass ratio] 6.6 {ratio} Normal [facility] Comment on above: Performed By: #### C MP, LIPID #### [facility] [address] [address] [address] Ricky Valenzuela HDL NORMAL > or = 60 mg/dl - LO W CARDIOVASCULAR RISK <40 mg/dl - HIGH CARDIOVASCULAR RISK Normal [facility] Comment on above: Performed By: #### C MP, LIPID #### [facility] [address] [address] [address] Ricky Valenzuela LDL CALC NORMAL SEE BELOW Normal [facility] Comment on above: Result Comment: <100 mg/dl OPTIMAL 100 - 129 mg/dl NEAR OR ABOVE OPTIMAL 130 - 159 mg/dl BORDERLINE HIGH 160 - 189 mg/dl HIGH >190 mg/dl VERY HIGH Performed By: #### C MP, LIPID #### [facility] [address] [address] [address] Ricky Valenzuela Triglyceride [Mass/Vol] 194 mg/dL Critically high <=150 [facility] Comment on above: Performed By: #### C MP, LIPID #### [facility] [address] [address] [address] Ricky Valenzuela VLDL CALC 38.8 mg/dL Normal [facility] Comment on above: Performed By: #### C MP, LIPID #### [facility] [address] [address] [address] Ricky Valenzuela MICROALBUMIN, RAND URon 07-13 mALB 13.1 mg/L Normal <=30.0 [facility] Comment on above: Performed By: #### M ALBR ####[facility] [id number] [address]. Ricky Valenzuela PROF 14(COMP METB)on 022 Albumin [Mass/Vol] 3.3 g/dL Critically low 3.4-5.0 Th [facility] Comment on above: Performed By: #### C MP, LIPID #### [facility] [address] [address] [address] Ricky Valenzuela Albumin/Globulin [Mass ratio] 0.8 {ratio} Normal [facility] Comment on above: Performed By: #### C MP, LIPID #### [facility] [address] [address] [address] Ricky Valenzuela ALP [Catalytic activity/Vol] 93 U/L Normal 46-116 [facility] Comment on above: Performed By: #### C MP, LIPID #### [facility] [address] [address] [address] Ricky Valenzuela ALT [Catalytic activity/Vol] 37 U/L Normal 14-59 [facility] Comment on above: Performed By: #### C MP, LIPID #### [facility] [address] [address] [address] Ricky Valenzuela Anion gap [Moles/Vol] 10.9 mmol/L Normal [facility] Comment on above: Performed By: #### C MP, LIPID #### [facility] [address] [address] [address] Ricky Valenzuela AST [Catalytic activity/Vol] 10 U/L Critically low 15-37 [facility] Comment on above: Performed By: #### C MP, LIPID #### [facility] [address] [address] [address] Ricky Valenzuela Bilirubin [Mass/Vol] 0.2 mg/dL Normal 0.2-1.0 [facility] Comment on above: Performed By: #### C MP, LIPID #### [facility] [address] [address] [address] Ricky Valenzuela Calcium [Mass/Vol] 9.0 mg/dL Normal 8.5-10.1 [facility] Comment on above: Performed By: #### C MP, LIPID #### [facility] [address] [address] [address] Ricky Valenzuela Chloride [Moles/Vol] 100 mmol/L Normal 98-107 [facility] Comment on above: Performed By: #### C MP, LIPID #### [facility] [address] [place] [address] Dr. Ricky Valenzuela CO2 [Moles/Vol] 32.2 mmol/L Critically high 21.0-32.0 [facility] Comment on above: Performed By: #### C MP, LIPID #### [facility] [address] [place] [address] Dr. Ricky Valenzuela Creatinine [Mass/Vol] 0.95 mg/dL Normal 0.55-1.02 [facility] Comment on above: Performed By: #### C MP, LIPID #### [facility] [address] [place] [address] Dr. Ricky Valenzuela EGFR-AF PERUVIAN >60 Normal >=60 [facility] Comment on above: Performed By: #### C MP, LIPID #### [facility] [address] [place] [address] Dr. Ricky Valenzuela EGFR-NON AF PERUVIAN >60 Normal >=60 [facility] Comment on above: Performed By: #### C MP, LIPID #### [facility] [address] [place] [address] Dr. Ricky Valenzuela Globulin (S) [Mass/Vol] 4.2 g/dL Normal [facility] Comment on above: Performed By: #### C MP, LIPID #### [facility] [address] [place] [address] Dr. Ricky Valenzuela Glucose [Mass/Vol] 200 mg/dL Critically high 74-106 [facility] Comment on above: Performed By: #### C MP, LIPID #### [facility] [address] [address] [address] Ricky Valenzuela Potassium [Moles/Vol] 4.1 mmol/L Normal 3.5-5.1 [facility] Comment on above: Performed By: #### C MP, LIPID #### [facility] [address] [address] [address] Ricky Valenzuela Protein [Mass/Vol] 7.5 g/dL Normal 6.4-8.2 [facility] Comment on above: Performed By: #### C MP, LIPID #### [facility] [address] [address] [address] Ricky Valenzuela Sodium [Moles/Vol] 139 mmol/L Normal 136-145 [facility] Comment on above: Performed By: #### C MP, LIPID #### [facility] [address] [place] [address] Dr. Ricky Valenzuela Urea nitrogen [Mass/Vol] 13.0 mg/dL Normal 7.0-18.0 [facility] Comment on above: Performed By: #### C MP, LIPID #### [facility] [address] [address] [address] Ricky Valenzuela Urea nitrogen/Creatinine [Mass ratio] 13.7 mg/mg Normal [facility] Comment on above: Performed By: #### C MP, LIPID #### [facility] [address] [place] [address] Dr. Ricky Valenzuela POINT OF CARE GLUCOSEon 06-12 Glucose [Mass/Vol] 176 mg/dL Critically high 74-106 T [facility] Comment on above: Performed By: #### P OCGLUC #### [facility] [address] [place] [address] Dr. Ricky Valenzuela Vital Signs Date Time Vital Sign Value Performing Clinician Facility 10-19-2024 11:44-0400 Body temperature 98.1 [degF] Ameena Vera Work Phone: [facility] 10-19-2024 11:44-0400 Body weight 96.41 kg Ameena Vera Work Phone: [facility] 10-19-2024 11:44-0400 Diastolic blood pressure 78 mm[Hg] Ameena Aichholz Work Phone: [facility] 10-19-2024 11:44-0400 Heart rate 93 /min Ameena Aichholz Work Phone: [facility] 10-19-2024 11:44-0400 Respiratory rate 16 /min Ameena Aichholz Work Phone: [facility] 10-19-2024 11:44-0400 SaO2% (BldA) [Mass fraction] 97 % Ameena Aichholz Work Phone: [facility] 10-19-2024 11:44-0400 Systolic blood pressure 138 mm[Hg] Ameena Aichholz Work Phone: [facility] 08-20-2024 11:10-0400 Diastolic blood pressure 58 mm[Hg] Ameena Aichholz DRAW OFF WORKER Work Phone: [facility] 08-20-2024 11:10-0400 Systolic blood pressure 90 mm[Hg] Ameena Aichholz D[employer] OFF WORKER Work Phone: [facility] 08-20-2024 10:37-0400 Body mass index (BMI) [Ratio] 39.74 kg/m2 Ameena Aichholz [employer] OFF WORK[employer] Work Phone: [facility] 08-20-2024 10:37-0400 Body temperature 98.49 [degF] Ameena Aichholz DRAW OFF WORKER Work Phone: [facility] 08-20-2024 10:37-0400 Body weight 96.98 kg Ameena Aichholz D[employer] OFF WORKER Work Phone: [facility] 08-20-2024 10:37-0400 Heart rate 101 /min Ameena Aichholz D[employer] OFF WORKER Work Phone: [facility] 08-20-2024 10:37-0400 Respiratory rate 18 /min Ameena Aichholz D[employer] OFF WORKER Work Phone: [facility] 08-20-2024 10:37-0400 SaO2% (BldA) [Mass fraction] 93 % Ameena Vera [employer] OFF WORKER Work Phone: [facility] 07-29-2024 14:08-0400 Body height 156.2 cm Kasi Bennett MD Work Phone: [facility] 07-29-2024 14:08-0400 Body mass index (BMI) [Ratio] 39.04 kg/m2 Kasi Bennett MD Work Phone: [facility] 07-29-2024 14:08-0400 Body weight 95.25 kg Kasi Bennett MD Work Phone: [facility] 07-29-2024 14:08-0400 Diastolic blood pressure 64 mm[Hg] Kasi Bennett MD Work Phone: [facility] 07-29-2024 14:08-0400 Heart rate 86 /min Kasi Bennett MD Work Phone: [facility] 07-29-2024 14:08-0400 Respiratory rate 18 /min Kasi Bennett MD Work Phone: [facility] 07-29-2024 14:08-0400 SaO2% (BldA) [Mass fraction] 93 % Kasi Bennett MD Work Phone: [facility] 07-29-2024 14:08-0400 Systolic blood pressure 100 mm[Hg] aKsi Bennett MD Work Phone: [facility] 05-28-2024 13:16-0400 Body height 154.94 cm [facility] 05-28-2024 13:16-0400 Body mass index (BMI) [Ratio] 39.4 kg/m2 [facility] 05-28-2024 13:16-0400 Body weight 94.8 kg [facility] 05-19-2024 11:10-0400 Body height 157.5 cm Ameena Vera NP Work Phone: [facility] 05-19-2024 11:10-0400 Body mass index (BMI) [Ratio] 39.03 kg/m2 Ameena Vera DRAW OFF WORKER Work Phone: [facility] 05-19-2024 11:10-0400 Body temperature 98.29 [degF] Ameena Sheffieldz D[employer] OFF WORKER Work Phone: [facility] 05-19-2024 11:10-0400 Body weight 96.8 kg Ameena Sheffieldz D[employer] OFF WORKER Work Phone: [facility] 05-19-2024 11:10-0400 Diastolic blood pressure 80 mm[Hg] Ameena Sheffieldz D[employer] OFF WORKER Work Phone: [facility] 05-19-2024 11:10-0400 Heart rate 91 /min Ameena Sheffieldz D[employer] OFF WORKER Work Phone: [facility] 05-19-2024 11:10-0400 Respiratory rate 18 /min Ameena Sehffieldz [employer] OFF WORKER Work Phone: [facility] 05-19-2024 11:10-0400 SaO2% (BldA) [Mass fraction] 96 % Ameena Sheffieldz D[employer] OFF WORKER Work Phone: [facility] 05-19-2024 11:10-0400 Systolic blood pressure 116 mm[Hg] Ameena Sheffieldz D[employer] OFF WORKER Work Phone: [facility] 04-21-2024 13:08-0400 Body height 157.5 cm Za Shipmanr D[employer] OFF WORKER Work Phone: [facility] 04-21-2024 13:08-0400 Body mass index (BMI) [Ratio] 39.51 kg/m2 Za Tikamor D[employer] OFF WORKER Work Phone: [facility] 04-21-2024 13:08-0400 Body weight 97.98 kg Za Gillmor D[employer] OFF WORKER Work Phone: [facility] 04-21-2024 13:08-0400 Diastolic blood pressure 86 mm[Hg] Za Gillmor DRAW OFF WORKER Work Phone: [facility] 04-21-2024 13:08-0400 Heart rate 96 /min Za Shipmanr D[employer] OFF WORKER Work Phone: [facility] 04-21-2024 13:08-0400 SaO2% (BldA) [Mass fraction] 93 % Za Shipmanr D[employer] OFF WORKER Work Phone: [facility] 04-21-2024 13:08-0400 Systolic blood pressure 148 mm[Hg] Za Shipmanr DRAW OFF WORKER Work Phone: [facility] 03-30-2024 09:40-0500 Body height 157.5 cm Sonam Drake D[employer] OFF WORKER Work Phone: [facility] 03-30-2024 09:40-0500 Body mass index (BMI) [Ratio] 39.51 kg/m2 Sonam Drake D[employer] OFF WORKER Work Phone: [facility] 03-30-2024 09:40-0500 Body temperature 97.3 [degF] Sonam Drake DRAW OFF WORKER Work Phone: [facility] 03-30-2024 09:40-0500 Body weight 97.98 kg Sonam Drake D[employer] OFF WORKER Work Phone: [facility] 03-30-2024 09:40-0500 Diastolic blood pressure 74 mm[Hg] Sonam Drake DRAW OFF WORKER Work Phone: [facility] 03-30-2024 09:40-0500 Heart rate 76 /min Sonam Drake D[employer] OFF WORKER Work Phone: [facility] 03-30-2024 09:40-0500 Respiratory rate 16 /min Sonam Drake D[employer] OFF WORKER Work Phone: [facility] 03-30-2024 09:40-0500 SaO2% (BldA) [Mass fraction] 98 % Sonam Draek D[employer] OFF WORKER Work Phone: [facility] 03-30-2024 09:40-0500 Systolic blood pressure 130 mm[Hg] Sonam Drake DRAW OFF WORKER Work Phone: [facility] 03-03-2024 10:13-0500 Body height 157.5 cm Sonam Drake DRAW OFF WORKER Work Phone: [facility] 03-03-2024 10:13-0500 Body mass index (BMI) [Ratio] 39.51 kg/m2 Sonam Drake DRAW OFF WORKER Work Phone: [facility] 03-03-2024 10:13-0500 Body temperature 97.2 [degF] Sonam Drake DRAW OFF WORKER Work Phone: [facility] 03-03-2024 10:13-0500 Body weight 97.98 kg Sonam Drake DRAW OFF WORKER Work Phone: [facility] 03-03-2024 10:13-0500 Diastolic blood pressure 76 mm[Hg] Sonam Drake DRAW OFF WORKER Work Phone: [facility] 03-03-2024 10:13-0500 Heart rate 84 /min Sonam Drake DRAW OFF WORKER Work Phone: [facility] 03-03-2024 10:13-0500 Respiratory rate 16 /min Sonam Drake DRAW OFF WORKER Work Phone: [facility] 03-03-2024 10:13-0500 SaO2% (BldA) [Mass fraction] 96 % Sonam Drake DRAW OFF WORKER Work Phone: [facility] 03-03-2024 10:13-0500 Systolic blood pressure 120 mm[Hg] Sonam Drake DRAW OFF WORKER Work Phone: [facility] 12-31-2023 10:06-0500 Body height 157.5 cm Sivan Solo DO Work Phone: [facility] 12-31-2023 10:06-0500 Body mass index (BMI) [Ratio] 39.14 kg/m2 Sivan Solo DO Work Phone: [facility] 12-31-2023 10:06-0500 Body weight 97.07 kg Sivan Solo DO Work Phone: [facility] 12-31-2023 10:06-0500 Diastolic blood pressure 72 mm[Hg] Sivan Solo DO Work Phone: [facility] 12-31-2023 10:06-0500 Heart rate 95 /min Sivan Solo DO Work Phone: [facility] 12-31-2023 10:06-0500 SaO2% (BldA) [Mass fraction] 97 % Sivan Solo DO Work Phone: [facility] 12-31-2023 10:06-0500 Systolic blood pressure 118 mm[Hg] Sivan Solo DO Work Phone: [facility] 12-30-2023 10:46-0500 Body mass index (BMI) [Ratio] 40.06 kg/m2 Sonam Drake DRAW OFF WORKER Work Phone: [facility] 12-30-2023 10:46-0500 Body weight 99.34 kg Sonam Drake DRAW OFF WORKER Work Phone: [facility] 12-30-2023 10:46-0500 Diastolic blood pressure 74 mm[Hg] Sonam Drake DRAW OFF WORKER Work Phone: [facility] 12-30-2023 10:46-0500 Heart rate 97 /min Sonam Drake DRAW OFF WORKER Work Phone: [facility] 12-30-2023 10:46-0500 SaO2% (BldA) [Mass fraction] 98 % Sonam Drake DRAW OFF WORKER Work Phone: [facility] 12-30-2023 10:46-0500 Systolic blood pressure 98 mm[Hg] Sonam Drake DRAW OFF WORKER Work Phone: [facility] 10-03-2023 10:07-0400 Body height 157.5 cm Sonam Drake DRAW OFF WORKER Work Phone: [facility] 10-03-2023 10:07-0400 Body mass index (BMI) [Ratio] 39.32 kg/m2 Sonam Drake DRAW OFF WORKER Work Phone: [facility] 10-03-2023 10:07-0400 Body temperature 97.5 [degF] Sonam Drake DRAW OFF WORKER Work Phone: [facility] 10-03-2023 10:07-0400 Body weight 97.52 kg Sonam Drake DRAW OFF WORKER Work Phone: [facility] 10-03-2023 10:07-0400 Diastolic blood pressure 70 mm[Hg] Sonam Drake DRAW OFF WORKER Work Phone: [facility] 10-03-2023 10:07-0400 Heart rate 107 /min Sonam Drake DRAW OFF WORKER Work Phone: [facility] Comment on above: 97% O2 10-03-2023 10:07-0400 Systolic blood pressure 90 mm[Hg] Sonam Drake DRAW OFF WORKER Work Phone: [facility] 01-18-2023 09:10-0500 Body height 156.21 cm Elle Hendricks Other [employer] Other 01-18-2023 09:10-0500 Body mass index (BMI) [Ratio] 42.82 kg/m2 Elle Hendricks Other [employer] Other 01-18-2023 09:10-0500 Body temperature 98.2 [degF] Elle Hendricks Other [employer] Other 01-18-2023 09:10-0500 Body weight 104.51 kg Elle Hendricks Other [employer] Other 01-18-2023 09:10-0500 Diastolic blood pressure 92 mm[Hg] Elle Hendricks Other [employer] Other 01-18-2023 09:10-0500 Respiratory rate 18 /min Elle Hendricks Other [employer] Other 01-18-2023 09:10-0500 SaO2% (BldA) [Mass fraction] 97 % Elle Hendricks Other [employer] Other 01-18-2023 09:10-0500 Systolic blood pressure 145 mm[Hg] Elle Hendricks Other [employer] Other Encounters Encounter Date Encounter Type Care Provider Facility Start: 10-19-2024 End: 10-19-2024 ambulatory Ameena Vera Work Phone: [facility] Work Phone: Start: 10-19-2024 End: 10-19-2024 Patient encounter procedure Ameena Vera DRAW OFF WORKER-C [facility] Work Phone: Start: 10-05-2024 End: 10-05-2024 Refill Jose Chandler MD Work Phone: [facility] Comment on above: Other hyperlipidemia Start: 09-29-2024 End: 09-29-2024 Refill Ameena Vera DRAW OFF WORKER Work Phone: [facility] Comment on above: Lumbar back pain Start: 09-23-2024 End: 09-24-2024 Refill Ameena Vera DRAW OFF WORKER Work Phone: [facility] Comment [...] Office outpatient visit 25 minutes Ameena Vera DRAW OFF WORKER Work Phone: [facility] Comment on above: Type 2 diabetes cory itus with diabetic microalbuminuria, without long-term current use of insulin (HCC) (Primary Dx); Essential hypertension; Morbid (severe) obesity due to excess calories (E66.01); Cigarette nicotine dependence without complication; Chronic gout of multiple sites, unspecified cause; Gastroesophageal reflux disease without esophagitis; Bilateral lower extremity edema Start: 08-05-2024 End: 08-05-2024 Refill Ameena Chuy DRAW OFF WORKER Work Phone: [facility] Comment on above: Chronic gout of mult iple sites, unspecified cause (Primary Dx) Type 2 diabetes cory itus with diabetic microalbuminuria, without long-term current use of insulin (HCC) Start: 08-02-2024 End: 08-04-2024 Refill Jose Chandler MD Work Phone: [facility] Comment on above: Lumbar back pain Start: 07-29-2024 End: 07-29-2024 Bamboo flowsheet Kasi Bennett MD Work Phone: [facility] Start: 07-29-2024 End: 07-29-2024 Bamboo flowsheet Kasi Bennett MD Work Phone: [facility] Start: 07-29-2024 End: 07-29-2024 Office outpatient new 45 minutes Kasi Bennett MD Work Phone: [facility] Comment on above: Hypercalcemia (Prima ry Dx); Low serum parathyroid hormone (PTH); Vitamin D deficiency Start: 07-29-2024 End: 07-29-2024 ambulatory KASI BENNETT Not Available Start: 07-26-2024 End: 07-27-2024 Refill Ameena Aichholz DRAW OFF WORKER Work Phone: [facility] Comment on above: Lumbar back pain Start: 07-22-2024 End: 07-22-2024 Refill Jose Chandler MD Work Phone: [facility] Comment on above: Type 2 diabetes cory itus with diabetic microalbuminuria, without long-term current use of insulin ([facility]) Start: 07-14-2024 End: 07-14-2024 Orders Only Ameena Nettiez DRAW OFF WORKER Work Phone: [facility] Comment on above: Low serum parathyroi d hormone (PTH) (Primary Dx) Start: 07-09-2024 End: 07-09-2024 Clinisync Result Encounter Ameena Nettiez DRAW OFF WORKER Work Phone: [facility] External Department Unsolicited Start: 07-09-2024 End: 07-09-2024 Clinisync Result Encounter Ameena Nettiez DRAW OFF WORKER Work Phone: [facility] Unsolicited Start: 06-23-2024 End: 06-23-2024 Refill Ameena Aichholz DRAW OFF WORKER Work Phone: [facility] Comment on above: Diabetic polyneuropa thy associated with type 2 diabetes mellitus ([facility]) Start: 06-22-2024 End: 06-22-2024 ambulatory Tanya Crowley MD Facility:[facility] Start: 06-11-2024 End: 06-11-2024 Refill Ameena Aichholz DRAW OFF WORKER Work Phone: [facility] Comment on above: Acute non-recurrent sinusitis of other sinus (Primary Dx) Start: 06-03-2024 End: 06-03-2024 Orders Only Ameena Aichholz DRAW OFF WORKER Work Phone: [facility] Comment on above: Hypercalcemia (Prima ry Dx); Low serum parathyroid hormone (PTH) Start: 05-28-2024 End: 05-28-2024 Patient encounter procedure [facility] Work Phone: Start: 05-28-2024 End: 05-28-2024 Patient encounter procedure [facility] Start: 05-28-2024 End: 05-28-2024 ambulatory Lui Banks II Facility:[facility] Start: 05-22-2024 End: 05-22-2024 Orders Only Ameena Vera DRAW OFF WORKER Work Phone: [facility] Comment on above: Hypercalcemia (Prima ry Dx) Start: 05-21-2024 End: 05-21-2024 Clinisync Result Encounter Ameena Chuy DRAW OFF WORKER Work Phone: [facility] External [facility] Unsolicited Start: 05-21-2024 End: 05-21-2024 Clinisync Result Encounter Ameena Chuy DRAW OFF WORKER Work Phone: [facility] External [facility] Unsolicited Start: 05-19-2024 End: 05-19-2024 Bamboo flowsheet Ameena Aichholz DRAW OFF WORKER Work Phone: [facility] Start: 05-19-2024 End: 05-19-2024 Bamboo flowsheet Ameena Aichholz DRAW OFF WORKER Work Phone: [facility] Start: 05-19-2024 End: 05-19-2024 ambulatory AMEENA DAYANHOLZ Not Available Start: 05-19-2024 End: 05-19-2024 Office outpatient visit 25 minutes Ameena Chuy DRAW OFF WORKER Work Phone: [facility] Comment [...] associated with type 2 diabetes mellitus ([facility]) Start: 05-06-2024 End: 05-06-2024 Refill Jose Chandler MD Work Phone: [facility] Comment on above: Bilateral lower extr emity edema (Primary Dx) Start: 04-21-2024 End: 04-21-2024 Bamboo flowsheet Za Wilkerson DRAW OFF WORKER Work Phone: [facility] Start: 04-21-2024 End: 04-21-2024 Bamboo flowsheet Za Wilkerson DRAW OFF WORKER Work Phone: [facility] Start: 04-21-2024 End: 04-21-2024 ambulatory ZA WILKERSON Not Available Start: 04-21-2024 End: 04-21-2024 Office outpatient visit 25 minutes Za Wilkerson NP Work Phone: [facility] Comment on above: JANETT (obstructive sle ep apnea) (Primary Dx); Hypersomnia; Snoring; Primary insomnia; Tobacco abuse Start: 03-30-2024 End: 03-30-2024 Bamboo flowsheet Sonam Drake DRAW OFF WORKER Work Phone: [facility] Start: 03-30-2024 End: 03-30-2024 Bamboo flowsheet Sonam Drake DRAW OFF WORKER Work Phone: [facility] Start: [...] microalbuminuria, without long-term current use of insulin ([facility]) Start: 03-30-2024 End: 03-30-2024 Office outpatient visit 15 minutes Sonam Princek DRAW OFF WORKER Work Phone: [facility] Comment on above: Type 2 diabetes cory itus with diabetic microalbuminuria, without long-term current use of insulin ([facility]) (Primary Dx); Essential hypertension; Other hyperlipidemia ([facility]); JANETT (obstructive sleep apnea); Type 2 diabetes mellitus without complication, without long-term current use of insulin ([facility]) Start: 03-18-2024 End: 03-18-2024 Clinisync Result Encounter Generic External Data Provider [facility] External [facility] Unsolicited Start: 03-18-2024 End: 03-18-2024 Clinisync Result Encounter Generic External Data Provider [facility] External [facility] Unsolicited Start: 03-16-2024 End: 03-16-2024 Refill Sonam Drake DRAW OFF WORKER Work Phone: [facility] Comment on above: Gastroesophageal ref lux disease without esophagitis Start: 03-09-2024 End: 03-09-2024 Refill Sonam Drake DRAW OFF WORKER Work Phone: [facility] Comment on above: Osteoporosis, unspec ified osteoporosis type, unspecified pathological fracture presence ([facility]) Start: 03-03-2024 End: 03-03-2024 Bamboo flowsheet Sonam Drake DRAW OFF WORKER Work Phone: [facility] Start: 03-03-2024 End: 03-03-2024 Bamboo flowsheet Sonam Drake DRAW OFF WORKER Work Phone: [facility] Start: 03-03-2024 End: 03-03-2024 ambulatory SONAM DRAKE Not Available Start: 03-03-2024 End: 03-03-2024 Office outpatient visit 10 minutes Sonam Drake DRAW OFF WORKER Work Phone: [facility] Comment on above: Upper respiratory in fection with cough and congestion (Primary Dx); Lumbar back pain; Migraine with aura and without status migrainosus, not intractable ([facility]); Type 2 diabetes mellitus with diabetic microalbuminuria, without long-term current use of insulin ([facility]); Diabetic polyneuropathy associated with type 2 diabetes mellitus ([facility]); Other hyperlipidemia ([facility]) Start: 01-30-2024 End: 01-30-2024 Refill Jolly Castaneda MA [facility] Comment on above: Lumbar back pain (Pr imary Dx); Type 2 diabetes mellitus with diabetic microalbuminuria, without long-term current use of insulin ([facility]) Start: 01-14-2024 End: 01-14-2024 Refill Jolly Castaneda MA [facility] Comment on above: Lumbar back pain Start: 12-31-2023 End: 12-31-2023 Clinisync Result Encounter Sonam Drake DRAW OFF WORKER Work Phone: [facility] Unsolicited Start: 12-31-2023 End: 12-31-2023 Clinisync Result Encounter Sonam Drake DRAW OFF WORKER Work Phone: [facility] Unsolicited Start: 12-31-2023 End: 12-31-2023 Office consultation new/estab patient 60 min Sivan Banda DO Work Phone: [facility] [facility] Comment on above: JANETT (obstructive sle ep apnea) (Primary Dx); Hypersomnia; Snoring; Primary insomnia; Tobacco abuse Start: 12-31-2023 End: 12-31-2023 ambulatory SIVAN BANDA Not Available Start: 12-30-2023 End: 12-30-2023 Bamboo flowsheet Sonam Drake DRAW OFF WORKER Work Phone: [facility] Start: 12-30-2023 End: 12-30-2023 Bamboo flowsheet Sonam Valenciatrick DRAW OFF WORKER Work Phone: [facility] Start: 12-30-2023 End: 12-30-2023 Office outpatient visit 15 minutes Sonam Drake DRAW OFF WORKER Work Phone: [facility] Comment on above: Type 2 diabetes cory itus with diabetic microalbuminuria, without long-term current use of insulin ([facility]) (Primary Dx); Essential hypertension; Other hyperlipidemia ([facility]); Snoring; Mixed urge and stress incontinence Start: 12-30-2023 End: 12-30-2023 ambulatory SONAM DRAKE Not Available Start: 12-17-2023 End: 12-17-2023 Refill Jolly Castaneda MA [facility] Comment on above: Migraine with aura a nd without status migrainosus, not intractable ([facility]); Diabetic polyneuropathy associated with type 2 diabetes mellitus ([facility]) Start: 12-17-2023 End: 12-18-2023 Refill Sonam Drake DRAW OFF WORKER Work Phone: [facility] Comment on above: Gout, unspecified ca use, unspecified chronicity, unspecified site Start: 11-04-2023 End: 11-04-2023 Refill Stiven Omalley MA [facility] Comment on above: Gout, unspecified ca use, unspecified chronicity, unspecified site Start: 11-01-2023 End: 11-02-2023 Refill Stiven Omalley MA [facility] Comment on above: Diabetic polyneuropa thy associated with type 2 diabetes mellitus ([facility]) Start: 10-04-2023 ambulatory Facility:[facility] Start: 10-03-2023 End: 10-03-2023 Bamboo flowsheet Sonam Princek DRAW OFF WORKER Work Phone: [facility] Start: 10-03-2023 End: 10-03-2023 Bamboo flowsheet Sonam Mansfieldzpatrick DRAW OFF WORKER Work Phone: [facility] Start: 10-03-2023 End: 10-03-2023 ambulatory SONAM DRAKE Not Available Start: 10-03-2023 End: 10-03-2023 Office outpatient visit 25 minutes Sonam Drake DRAW OFF WORKER Work Phone: [facility] Comment [...] incontinence; Snoring Start: 04-30-2023 End: 04-30-2023 ambulatory [facility] Work Phone: Start: 04-30-2023 End: 04-30-2023 Patient encounter procedure [facility] Work Phone: Start: 03-21-2023 Orders Only Shaikh Maricel HOLLIS Work Phone: [facility] Comment on above: Diabetic polyneuropa thy associated with type 2 diabetes mellitus (CMS/HCC) (Primary Dx) Start: 03-19-2023 End: 03-19-2023 ambulatory Ana Luisa Curtis Other [employer] Other Start: 03-19-2023 Office outpatient vi sit 15 minutes Ana Luisa Curtis [facility] Start: 01-23-2023 End: 01-23-2023 ambulatory Ana Luisa Curtis Other [employer] Other Start: 01-23-2023 Office outpatient vi sit 15 minutes Ana Luisa Curtis [facility] Start: 01-18-2023 End: 01-18-2023 ambulatory Elle Hendricks Other [employer] Other Start: 01-18-2023 Office outpatient vi sit 15 minutes Elle Hendricks [facility] Start: 09-19-2022 End: 09-19-2022 ambulatory Ana Luisa Curtis Other [employer] Other Start: 09-19-2022 Telephone encounter [facility] Start: 07-12-[address] JONATHAN EDWARDS Facili ty:[facility] Start: 06-07-2022 End: 06-08-[address] JONATHAN EDWARDS Facility:[facility] Start: 05-02-2022 End: 05-02-2022 ambulatory Ana Luisa Curtis Other [facility] [employer] Other Start: 05-02-2022 Office outpatient ne w 30 minutes Ana Luisa Curtis [facility] Start: 04-12-2022 End: 04-13-[address] [...] 08-30-2021 End: 08-31-2021 ambulatory RADHA SNOWDEN BARCLAY [facility] Start: 08-30-2021 End: 08-30-2021 Subsequent hospital visit by physician Sr Edwards DO Work Phone: [facility] Comment on above: Routine cervical sme ar Start: 08-16-2021 Encounter for genera l adult medical examination without abnormal findings DR RICARDO HOLM . [facility] Start: 08-09-2021 End: 08-10-2021 Encounter for general [...] 08-20-2024 Hemoglobin glycosyla anne a1c Ameena Aichholz DRAW OFF WORKER Work Phone: Start: 07-09-2024 ALL BASIC METABOLIC PANEL Ameena Aicbiancaholz DRAW OFF WORKER Work Phone: Start: 05-28-2024 Plain radiography of pelvis Start: 05-28-2024 X-ray of right knee, four views Start: 05-21-2024 Radiologic examinati on knee 3 views Ameena Aicherlinda DRAW OFF WORKER Work Phone: Start: 05-21-2024 ALL CBC WITH AUTO DIFF Ameena Aichholz DRAW OFF WORKER Work Phone: Start: 05-19-2024 Hemoglobin glycosyla anne a1c Ameena Aichholz DRAW OFF WORKER Work Phone: Start: 03-30-2024 Hemoglobin glycosyla anne a1c Sonam Drake DRAW OFF WORKER Work Phone: Start: 03-18-2024 MM TOMOSYNTHESIS SCR EENING BI Generic External Data Provider Start: 03-18-2024 Mammography Generic Pr ovider Start: 12-31-2023 ALL CBC WITH AUTO DIFF Sonam Drake DRAW OFF WORKER Work Phone: Start: 03-20-2023 Mammography Shaikh Marie calero MD Work Phone: Start: 08-30-2021 Microscopic observat ion [Identifier] in Cervix by Cyto stain Sr House DO Work Phone: Plan of Treatment Date Care Activity Detail Author Start: 03-28-2026 Screening for malignant neoplasm of colon [facility] Start: 03-08-2026 Screening for malignant neoplasm of colon [facility] Start: 05-21-2025 Urine screening for protein Diabetes: Urine Protein Screening [facility] Start: 04-06-2025 End: 04-06-2025 Patient encounter procedure 04/06/2025 1:15 PM EST Office Visit [facility] [address] [place] [phone] Alicia Monroy MD [address] [place] [address] [facility] Start: 03-30-2025 End: 03-30-2025 Patient encounter procedure [facility] Start: 03-18-2025 Screening for malignant neoplasm of breast Mammogram [facility] Start: 02-20-2025 Hemoglobin A1c measurement Diabetes: Hemoglobin A1C [facility] Start: 12-30-2024 Urine screening for protein Diabetes: Urine Protein Screening [facility] Start: 11-23-2024 End: 11-23-2024 Patient encounter procedure 11/23/2024 1:00 PM EDT Office Visit [facility] [address] [place] [id number] Ameena Vera NP [address] [place] [address] [facility] Start: 11-18-2024 Hemoglobin A1c measurement Diabetes: Hemoglobin A1C [facility] Start: 11-02-2024 End: 11-02-2024 Patient encounter procedure 11/02/2024 10:10 AM EDT Office Visit [facility] [address] [place] [id number] Kasi Bennett MD [address] [place] [address] [facility] Start: 10-26-2024 End: 10-26-2024 Patient encounter procedure 10/26/2024 1:20 PM EDT Office Visit [facility] [address] [place] [phone] Za Wilkerson NP [address] [place], [place] [facility] Start: 10-19-2024 End: 10-19-2024 Patient encounter procedure 10/19/2024 11:30 AM EDT Office Visit [facility] [address] [place] [address] Ameena Vera, RONALDO [address] [place] [phone] [facility] Start: 10-12-2024 Influenza vaccination [facility] Start: 09-30-2024 End: 09-30-2024 Patient encounter procedure [facility] Start: 09-27-2024 Hemoglobin A1c measurement Diabetes: Hemoglobin A1C [facility] Start: 08-30-2024 Screening for malignant neoplasm of cervix [facility] Start: 08-20-2024 End: 08-20-2024 Patient encounter procedure 08/20/2024 10:30 AM EDT Office Visit [facility] [address] [place] [address] Ameena Vera, RONALDO [address] [place] [phone] [facility] Start: 07-29-2024 End: 07-29-2025 25-hydroxyvitamin D3 [Mass/volume] in Serum or Plasma Vitamin D 25 hydroxy Total Lab Routine Low serum parathyroid hormone (PTH) Hypercalcemia Vitamin D deficiency Expected: 07/29/2024 (Approximate), Expires: 07/29/2025 [facility] Comment on above: Expected: 07/29/2024 (Approximate), Expi res: 07/29/2025 Start: 07-29-2024 End: 07-29-2025 Magnesium [Mass/volume] in Serum or Plasma Magnesium Lab Routine Low serum parathyroid hormone (PTH) Hypercalcemia Expected: 07/29/2024 (Approximate), Expires: 07/29/2025 [facility] Work Phone: Comment on above: Expected: 07/29/2024 (Approximate), Expi res: 07/29/2025 Start: 07-29-2024 End: 07-29-2025 Parathyrin.intact and Calcium panel - Serum or Plasma PTH, intact and calcium Lab Routine Low serum parathyroid hormone (PTH) Hypercalcemia Expected: 07/29/2024 (Approximate), Expires: 07/29/2025 [facility] Comment on above: Expected: 07/29/2024 (Approximate), Expi res: 07/29/2025 Start: 07-29-2024 End: 07-29-2024 Patient encounter procedure [facility] Comment on above: Low serum parathyroid hormone (PTH) Start: 07-29-2024 End: 07-29-2025 Renal function panel Renal function panel Lab Routine Low serum parathyroid hormone (PTH) Hypercalcemia Expected: 07/29/2024 (Approximate), Expires: 07/29/2025 [facility] Comment on above: Expected: 07/29/2024 (Approximate), Expi res: 07/29/2025 Start: 07-26-2024 Urine screening for protein Diabetes: Urine Protein Screening [facility] Start: 07-03-2024 End: 06-03-2025 25-hydroxyvitamin D3 [Mass/volume] in Serum or Plasma Vitamin D 25 hydroxy Lab Routine Hypercalcemia Expected: 07/03/2024 (Approximate), Expires: 06/03/2025 [facility] Comment on above: Expected: 07/03/2024 (Approximate), Expi res: 06/03/2025 Start: 07-03-2024 End: 06-03-2025 Basic metabolic 1998 panel - Serum or Plasma Basic metabolic panel Lab Routine Hypercalcemia Low serum parathyroid hormone (PTH) Expected: 07/03/2024 (Approximate), Expires: 06/03/2025 [facility] Comment on above: Expected: 07/03/2024 (Approximate), Expi res: 06/03/2025 Start: 07-03-2024 End: 06-03-2025 Parathyrin.intact [Mass/volume] in Serum or Plasma PTH, intact Lab Routine Low serum parathyroid hormone (PTH) Expected: 07/03/2024 (Approximate), Expires: 06/03/2025 [facility] Work Phone: Comment on above: Expected: 07/03/2024 (Approximate), Expi res: 06/03/2025 Start: 06-25-2024 End: 06-25-2024 Patient encounter procedure [facility] Start: 05-22-2024 End: 05-22-2025 Parathyrin.intact [Mass/volume] in Serum or Plasma PTH, intact Lab Routine Hypercalcemia Expected: 05/22/2024 (Approximate), Expires: 05/22/2025 [facility] Work Phone: Comment on above: Expected: 05/22/2024 (Approximate), Expi res: 05/22/2025 Start: 05-19-2024 End: 05-19-2025 25-hydroxyvitamin D3 [Mass/volume] in Serum or Plasma Vitamin D 25 hydroxy Lab Routine Hypercalcemia Expected: 05/19/2024 (Approximate), Expires: 05/19/2025 [facility] Comment on above: Expected: 05/19/2024 (Approximate), Expi res: 05/19/2025 Start: 05-19-2024 End: 05-19-2025 CBC W Auto Differential panel - Blood CBC and differential Lab Routine JANETT (obstructive sleep apnea) Cigarette nicotine dependence without complication Expected: 05/19/2024 (Approximate), Expires: 05/19/2025 [facility] Comment on above: Expected: 05/19/2024 (Approximate), Expi res: 05/19/2025 Start: 05-19-2024 End: 05-19-2025 Comprehensive metabolic 2000 panel - Serum or Plasma Comprehensive metabolic panel Lab Routine Other hyperlipidemia Bilateral lower extremity edema Type 2 diabetes mellitus with diabetic microalbuminuria, without long-term current use of insulin ([facility]) Hypercalcemia Essential hypertension Expected: 05/19/2024 (Approximate), Expires: 05/19/2025 [facility] Comment on above: Expected: 05/19/2024 (Approximate), Expi res: 05/19/2025 Start: 05-19-2024 End: 05-19-2025 Lipid 1996 panel - Serum or Plasma Lipid panel Lab Routine Other hyperlipidemia Expected: 05/19/2024 (Approximate), Expires: 05/19/2025 [facility] Work Phone: Comment on above: Expected: 05/19/2024 (Approximate), Expi res: 05/19/2025 Start: 05-19-2024 End: 05-19-2025 Microalbumin/Creatinine panel in random Urine Microalbumin / creatinine, urine ratio Lab Routine Type 2 diabetes mellitus with diabetic microalbuminuria, without long-term current use of insulin ([facility]) Essential hypertension Expected: 05/19/2024 (Approximate), Expires: 05/19/2025 [facility] Comment on above: Expected: 05/19/2024 (Approximate), Expi res: 05/19/2025 Start: 05-19-2024 End: 05-19-2025 Parathyrin.intact [Mass/volume] in Serum or Plasma PTH, intact Lab Routine Hypercalcemia Expected: 05/19/2024 (Approximate), Expires: 05/19/2025 [facility] Comment on above: Expected: 05/19/2024 (Approximate), Expi res: 05/19/2025 Start: 05-19-2024 End: 05-19-2025 Urate [Mass/volume] in Serum or Plasma Uric acid Lab Routine Elevated blood uric acid level Expected: 05/19/2024 (Approximate), Expires: 05/19/2025 [facility] Comment on above: Expected: 05/19/2024 (Approximate), Expi res: 05/19/2025 Start: 05-19-2024 End: 05-19-2025 Urinalysis complete panel - Urine Urinalysis with reflex microscopic (clean catch) Lab Routine Type 2 diabetes mellitus with diabetic microalbuminuria, without long-term current use of insulin ([facility]) Cigarette nicotine dependence without complication Essential hypertension Elevated blood uric acid level Expected: 05/19/2024 (Approximate), Expires: 05/19/2025 [facility] Comment on above: Expected: 05/19/2024 (Approximate), Expi res: 05/19/2025 Start: 05-19-2024 End: 05-19-2025 XR Knee - right 3 Views XR knee 3 views right Imaging Routine Acute pain of right knee Expected: 05/19/2024 (Approximate), Expires: 05/19/2025 [facility] Comment on above: Expected: 05/19/2024 (Approximate), Expi res: 05/19/2025 Start: 05-19-2024 End: 05-19-2024 Patient encounter procedure 05/19/2024 11:00 AM EDT Office Visit [facility] [address] [place] [phone] Ameena Vera NP [address] [place] [address] [facility] Start: 04-21-2024 End: 04-21-2024 Patient encounter procedure 04/21/2024 1:00 PM EDT Office Visit [facility] [address] [place] [phone] Za Wilkerson NP [address] [place] [address] [facility] Start: 03-30-2024 End: 03-30-2024 Patient encounter procedure 03/30/2024 11:05 AM EST Office Visit [facility] [address] [place] [phone] Alicia Monroy MD [address] [place] [address] [facility] Start: 03-26-2024 End: 03-26-2024 Patient encounter procedure 03/26/2024 2:00 PM EST Office Visit [facility] [address] [place] [phone] Sonam Drake NP [address] [place] [phone] [facility] Start: 03-24-2024 End: 03-24-2024 Patient encounter procedure [facility] [address] Start: 03-20-2024 Screening for malignant neoplasm of breast Mammogram [facility] Start: 02-27-2024 End: 02-27-2024 Patient encounter procedure 02/27/2024 11:35 AM EST Office Visit [facility] [address] [place] [phone] Alicia Monroy MD [address] [place] [address] [facility] Start: 02-25-2024 End: 02-25-2024 Patient encounter procedure 02/25/2024 3:30 PM EST Office Visit [facility] [address] [place] [address] Sonam Drake NP [address] [place] [address] [facility] Start: 02-21-2024 Medicare Annual Wellness (AWV) Medicare Annual Wellness (AWV) [facility] Start: 02-12-2024 Glaucoma screening Diabetes: Retinopathy Screening [facility] Start: 01-25-2024 Hemoglobin A1c measurement Diabetes: Hemoglobin A1C [facility] Start: 12-31-2023 End: 12-30-2024 Polysomnography [facility] Routine JANETT (obstructive sleep apnea) Expected: 12/31/2023 (Approximate), Expires: 12/30/2024 [facility] Work Phone: Comment on above: Expected: 12/31/2023 (Approximate), Expi res: 12/30/2024 Start: 12-31-2023 End: 12-31-2023 Patient encounter procedure 12/31/2023 10:00 AM EST Office Visit [facility] [address] [place] [phone] Sivan Banda, DO [address] [place] [address] [facility] [address] Start: 12-30-2023 End: 12-29-2024 CBC W Auto Differential panel - Blood CBC and differential Lab Routine Type 2 diabetes mellitus with diabetic microalbuminuria, without long-term current use of insulin ([facility]) Essential hypertension Expected: 12/30/2023 (Approximate), Expires: 12/29/2024 [facility] Comment on above: Expected: 12/30/2023 (Approximate), Expi res: 12/29/2024 Start: 12-30-2023 End: 12-29-2024 Comprehensive metabolic 2000 panel - Serum or Plasma Comprehensive metabolic panel Lab Routine Type 2 diabetes mellitus with diabetic microalbuminuria, without long-term current use of insulin ([facility]) Essential hypertension Expected: 12/30/2023 (Approximate), Expires: 12/29/2024 [facility] Comment on above: Expected: 12/30/2023 (Approximate), Expi res: 12/29/2024 Start: 12-30-2023 End: 12-29-2024 Hemoglobin A1c/Hemoglobin.total in Blood Hemoglobin A1c Lab Routine Type 2 diabetes mellitus with diabetic microalbuminuria, without long-term current use of insulin ([facility]) Expected: 12/30/2023 (Approximate), Expires: 12/29/2024 [facility] Comment on above: Expected: 12/30/2023 (Approximate), Expi res: 12/29/2024 Start: 12-30-2023 End: 12-30-2023 Patient encounter procedure 12/30/2023 10:30 AM EST Office Visit [facility] [address] [place] [phone] Sonam Drake NP [address] [place] [address] [facility] Start: 11-04-2023 End: 11-04-2023 Patient encounter procedure 11/04/2023 2:30 PM EDT Office Visit [facility] [place] [address] [place] [address] Sivan Banda DO [address] [place], [place] [phone] [facility] [place] [address] Start: 10-13-2023 Influenza vaccination Influenza Vaccine (#1) [facility] Start: 08-11-2023 Influenza vaccination Influenza Vaccine (#1) [facility] Comment on above: Postponed from 10/12/2022 (Patient Refus ed) Start: 05-02-2023 End: 05-02-2023 Patient encounter procedure 05/02/2023 2:00 PM EDT Office Visit [facility] [address] [place] [address] Shaikh Connelly MD [address] [place] [address] [facility] Start: 02-17-2023 Hemoglobin A1c measurement Diabetes: Hemoglobin A1C [facility] Start: 09-04-2022 End: 09-04-2022 Patient encounter procedure 09/04/2022 Office Visit Obstetrics and Gynecology Radha Barclay, BRAID PATTERN SETTER - CNM [address] [facility] [address] [place] [address] [facility] Start: 10-12-2021 Influenza vaccination Flu vaccine (#1) [facility] Start: 10-21-2013 Screening for malignant neoplasm of breast Breast cancer screen [facility] Start: 10-21-2013 Shingles vaccine (1 of 2) Shingles vaccine (1 of 2) [facility] Start: 10-21-2008 Screening for malignant neoplasm of colon [facility] Start: 2003 Lipid panel Lipids [facility] Start: 10-21-1998 Diabetes screen Diabetes screen [facility] Start: 10-21-1993 Screening for malignant neoplasm of cervix [facility] Start: 10-21-1982 DTaP/Tdap/Td vaccine (1 - Tdap) DTaP/Tdap/Td vaccine (1 - Tdap) [facility] Start: 10-21-1982 Urine screening for protein Diabetes: Urine Protein Screening [facility] Start: 10-21-1981 Hepatitis C screening Hepatitis C screen [facility] Start: 10-21-1978 HIV screening HIV screen [facility] Start: 1975 Depression Screen Depression Screen [facility] Start: 04-20-1964 COVID-19 Vaccine (#1) COVID-19 Vaccine (#1) [facility] [employer] Start: 1963 Screening for malignant neoplasm of colon [facility] End: 08-30-2021 Cytopathology procedure, preparation of smear, genital source PAP SMEAR Lab Routine Routine cervical smear 1 Occurrences starting 08/30/2021 until 08/30/2021 [facility] Work Phone: Comment on above: 1 Occurrences starting 08/30/2021 until 08/30/2021 Microalbumin/Creatin ine panel in random Urine Microalbumin / creatinine urine ratio Lab Routine Type 2 diabetes mellitus with diabetic microalbuminuria, without long-term current use of insulin ([facility]) Essential hypertension Ordered: 12/30/2023 [facility] Work Phone: Comment on above: Ordered: 12/30/2023 Immunizations Immunization Date Immunization Notes Care Provider [facility] 01-14-2017 influenza, injectabl e, quadrivalent, preservative [facility] 01-14-2017 influenza virus vaccine, unspecified formulation Sonam Drake DRAW OFF WORKER Work Phone: [facility] Payers Date Payer Category Payer Self-pay [id number] 2022 Private Health Insurance [id number] 2022 Unknown [id number] [id number] 2022 Unknown 2022 2012 Medicare [id number]. [id number] 1963 Unknown [id number] 2.16.8 40.1.364369.3.579.2.173 1963 Unknown [id number] 2.16.84 0.1.109621.3.579.2.593 1963 Unknown [id number] 2.16.84 0.1.440655.3.579.2.593 1963 Unknown [id number] 2.16.84 0.1.750767.3.579.2.593 1963 Unknown [id number] 2.16.84 0.1.641454.3.579.2.593 1963 Unknown [id number] 2.16.84 0.1.711953.3.579.2.593 1963 Unknown [id number] 2.16.84 0.1.164734.3.579.2.593 1963 Unknown [id number] 2.16.84 0.1.364427.3.579.2.593 1963 Unknown [id number] 2.16.84 0.1.009737.3.579.2.593 1963 Unknown [id number] 2.16.84 0.1.013685.3.579.2.593 1963 Unknown [id number] 2.16.84 0.1.825741.3.579.2.593 1963 Unknown [id number] 2.16.84 0.1.219184.3.579.2.593 1963 Unknown [id number] 2.16.84 0.1.515715.3.579.2.593 1963 Unknown [id number] 2.16.84 0.1.349109.3.579.2.593 1963 Unknown [id number] 2.16.84 0.1.784889.3.579.2.593 1963 Unknown [id number] 2.16.84 0.1.518679.3.579.2.593 1963 Unknown [id number] 2.16.84 0.1.069526.3.579.2.593 1963 Unknown [id number] 2.16. 840.1.106103.3.579.2.196 1963 Unknown [id number] 2.16.8 40.1.340782.3.579.2.1258 1963 Unknown [id number] 2.16.8 40.1.280709.3.579.2.1258 1963 Unknown [id number] 2.16.84 0.1.521812.3.579.2.1258 1963 Unknown [id number] 2.16.84 0.1.586934.3.579.2.1258 1963 Unknown [id number] 2.16.84 0.1.709505.3.579.2.1258 1963 Unknown [id number] 2.16.84 0.1.738025.3.579.2.1258 1963 Unknown [id number] 2.16.84 0.1.678180.3.579.2.1258 1963 Unknown [id number] 2.16.84 0.1.158321.3.579.2.1258 1963 Unknown [id number] 2.16.84 0.1.692105.3.579.2.1258 1963 Unknown [id number] 2.16.84 0.1.442237.3.579.2.9 1959 Medicare [id number] 1.2.840.775314.1.13.239.2.7.3.247493.315 1959 Unknown [id number] 1.2.840.451498.1.13.239.2.7.3.055622.315 1959 Unknown [id number] 2.16.8 40.1.033764.19 Medicare Medicare [id number] Unknown [id number] 2.16.8 40.1.824739.3.579.2.531 Social History Date Type Detail Facility Start: 08-30-2021 End: 04-21-2024 Tobacco smoking status WAIS Smokes tobacco daily [employer] Phone: History of tobacco use Cigarette Smoker B ON [employer] Phone: Start: 08-30-2021 End: 04-21-2024 Tobacco use and exposure Smokeless tobacco non-user [employer] Phone: Start: 08-30-2021 Alcohol intake Current drinke r of alcohol (finding) [employer] Phone: Start: 08-30-2021 History SDOH Alcohol Comment occasional [employer] Phone: Start: 1965 Sex Assigned At Not on file B ON [employer] Phone: Start: 08-20-2021 End: 08-30-2021 Exposure to SARS-CoV-2 (event) Not sure [employer] Start: 02-25-2023 End: 10-02-2023 Sex Assigned At [facility] Start: 01-29-2023 End: 05-20-2024 Tobacco smoking status NHIS Ex-smoker [facility] History of tobacco use Current smoker [facility] Start: 01-29-2023 End: 10-02-2023 Cigarettes smoked current (pack per day) - Reported 0.5 [facility] Start: 02-25-2023 End: 08-20-2024 Alcohol intake Lifetime non-drinker (finding) [facility] Start: 1965 Sex Assigned At Female F [facility] History of tobacco use Passive [...] [facility] Start: 05-29-2024 Sex Female (finding) [facility] Medical Equipment Procedure Code Equipment Code Equipment Origin al Text Equipment Identifier Dates [id number] Start: 06-08-2021 End: 04-21-2024 Clinical Notes 06-20-2021 [...] 6.3%, 94% TIR , 4% high 30 [id number], 6.3%m 93% TIR, and 5% high, 1 [...] MORE THAN 3 TABLETS DAILY Continuous Glucose Instructor Weaving (Dexcom G7 Instructor Weaving) device 1 each, Does not apply, Continuous [...] of the risks of continued smoking: stroke, CT, all forms of cancer, lung disease, and [...] of the risks of continued smoking: stroke, CT, all forms of cancer, lung disease, and [...] meds: none documented in this encounter [facility] 08-20-2024 Telephone encount er Note Please call [facility] in [place] for copy of diabetic eye exam [place] [facility] 08-20-2024 Miscellaneous Notes Formattin g of this note might be different from the original. Please call [facility] in [place] for copy of diabetic eye exam [place] documented in this encounter [facility] 08-20-2024 Instructions Ameena Vera NP - 08/20/2024 10:30 AM EDT Furosemide every other day 1/2 tablet documented in this encounter [facility] 07-29-2024 History of Presen t illness [...] MORE THAN 3 TABLETS DAILY Continuous Glucose Instructor Weaving (Dexcom G7 Instructor Weaving) device 1 each, Does not apply, Continuous [...] (around 09/28/2024). documented in this encounter [facility] 05-28-2024 Evaluation note Diagnosis Onset Date Resolution Primary osteoarthritis of right knee acute May 28, 2024 12:55pm [facility] Work Phone: [phone] 914-357504-11-2025 History of Present illness Narrative* Ameena Vera NP - 05/22/2024 7:25 AM EDT par documented in [facility] encounter[facility] [id number] History of Present illness Narrative* Ameena Vera [...] orthopedic surgeon in the past back in [place] for that knee however she does not [...] orthopedic surgeon in the past back in [place] for that knee however she does not [...] MORE THAN 3 TABLETS DAILY Continuous Glucose Instructor Weaving (Dexcom G7 Instructor Weaving) device 1 each, Does not apply, Continuous [...] without long-term current use of insulin ([facility]) Check [...] of the risks of continued smoking: stroke, CT, all forms of cancer, lung disease, and [...] of the risks of continued smoking: stroke, CT, all forms of cancer, lung disease, and [...] and without status migrainosus, not intractable ([facility]) Current meds: maxalt, depakote * Ameena Vera NP - 05/19/2024 6:51 AM EDTAssociated Problem(s): Type 2 diabetes mellitus with diabetic microalbuminuria, without long-term current use of insulin ([facility]) Check [...] your JANETT: Dr Banda documented in this [facility]04-08-2025 Instructions* Patient Instructions* Ameena Vera NP - 05/19/2024 11:00 AM EDT Fasting labs Get xray knee Referral to Dr Darren Orona documented in this [facility]02-17-2025 Telephone encounter Note* Telephone Encounter - Jolly Castaneda MA - 03/30/2024 11:44 AM EST Pt's sensor fell off, and she needs them refilled please [facility] [id number] Miscellaneous Notes* Telephone Encounter - Jolly Castaneda MA - 03/30/2024 11:44 AM EST Pt's sensor fell off, and she needs them refilled please documented in this [facility]02-17-2025 History of Present illness Narrative* Alicia [...] Examined Right arm Examined Patient wearing nail moroccan, Denies dark streaks under finger nails, Denies [...] year skin check [facility] [id number] History of Present illness Narrative* Sonam Drake NP - 03/30/2024 10:04 AM ESTAssociated Problem(s): JANETT (obstructive sleep apnea) Saw Neurology- was diagnosed with severe JANETT. Has been wearing CPAP religiously. Feels more well rested when wearing. Continue current regimen as directed by neurology. * Sonam Drake DRAW OFF WORKER - 03/30/2024 9:58 AM ESTAssociated Problem(s): Other hyperlipidemia ([facility]) Crestor 20mg Denies myalgias Continue current regimen. * Sonam Drake NP - 03/30/2024 9:58 AM ESTAssociated Problem(s): Essential hypertension BP consistently under goal in office. Not on any medication regimen. Continue to monitor closely. * Sonam Drake DRAW OFF WORKER - 03/30/2024 9:58 AM ESTAssociated Problem(s): Type 2 diabetes mellitus with diabetic microalbuminuria, without long-term current use of insulin ([facility]) Currently [...] without long-term current use of insulin ([facility]) - [...] A1C) docked device (Completed) Other hyperlipidemia ([facility]) Crestor [...] without long-term current use of insulin ([facility]) documented in this [facility]02-17-2025 Instructions* Patient Instructions* Sonam Drake NP [...] carbohydrates, and simple sugars. documented in this [facility]01-21-2025 History of Present illness Narrative* Sonam [...] without long-term current use of insulin ([facility]) Relevant Medications metFORMIN (Glucophage) 500 MG tablet Continuous Glucose Instructor Weaving (Dexcom G7 Instructor Weaving) device Continuous Glucose Sensor (Dexcom G7 Sensor) [...] 500 MG EC tablet Other hyperlipidemia ([facility]) Relevant Medications rosuvastatin (Crestor) 20 MG tablet Lumbar back pain Relevant Medications diclofenac (Voltaren) 75 MG EC tablet Other Visit Diagnoses Diabetic polyneuropathy associated with type 2 diabetes mellitus ([facility]) Relevant Medications pregabalin (Lyrica) 75 MG capsule [facility] [id number] Instructions* Patient Instructions* Sonam Drake NP - [...] 1500 calories per day. documented in this [facility]12-19-2024 Telephone encounter Note* Telephone Encounter - Jolly Castaneda MA - 01/30/2024 10:38 AM EST GIOVANNA:12/30/2023 NOV:03/26/2024 [facility] [id number] Miscellaneous Notes* Telephone Encounter - Jolly Castaneda MA - 01/30/2024 10:38 AM EST GIOVANNA:12/30/2023 NOV:03/26/2024 documented in this [facility]12-03-2024 Telephone encounter Note* Telephone Encounter - Jolly Castaneda MA - 01/14/2024 8:34 AM EST GIOVANNA:12/30/2023 NOV:03/26/2023 [facility] [id number] Miscellaneous Notes* Telephone Encounter - Jolly Castaneda MA - 01/14/2024 8:34 AM EST GIOVANNA:12/30/2023 NOV:03/26/2023 documented in this [facility]11-19-2024 History of Present illness Narrative* Sivan Banda DO - 12/31/2023 10:00 AM EST Images from the original note were not included. No chief complaint on file. Subjective SLEEP CONSULT REFERRAL: Snoring, concern for JANETT, needing sleep study - labs @ [facility]; referral received from Sonam Drake CNP. [...] was counseled on the risks of stroke, CT, and sudden with JANETT, along with the [...] clinic: 2 months documented in [facility]Saint [facility] [id number] History of Present illness Narrative* Sonam Drake [...] 01/2023; Is going in 01/2024 * Sonam rDake NP - 12/30/2023 10:30 AM EST Images [...] ALBUMIN GLOBULIN RATIO 0.8 Resulting Agency H [facility] DMII: Metformin Bid and Ozempic Most [...] without long-term current use of insulin ([facility]) - [...] JANETT. First appointment tomorrow. documented in this [facility]11-18-2024 Instructions* Patient Instructions* Sonam Drake NP - 12/30/2023 10:30 AM EST FASTING labs ordered. Nothing to eat or drink for 12 hours prior to blood draw. Water and black coffee ok. Call if you need anything! documented in this [facility]11-05-2024 Telephone encounter Note* Telephone Encounter - Jolly Castaneda MA - 12/17/2023 3:39 PM EST GIOVANNA:10/03/2023 NOV:12/30/2023 [facility] [id number] Miscellaneous Notes* Telephone Encounter - Jolly Castaneda MA - 12/17/2023 3:39 PM EST GIOVANNA:10/03/2023 NOV:12/30/2023 documented in this [facility]08-22-2024 History of Present illness Narrative* Sonam Drake NP - 10/03/2023 10:57 AM EDTAssociated Problem(s): Snoring Screening for JANETT- Referral sent to [facility] * Sonam Drake NP - 10/03/2023 10:35 [...] R ALBUMIN GLOBULIN RATIO 0.8 Resulting Agency [facility] DMII: Metformin Bid and Ozempic Most [...] for JANETT- Referral sent to [facility] Other Visit Diagnoses Type 2 diabetes mellitus without complication, without long-term current use of insulin ([facility]) Relevant Medications semaglutide (Ozempic, 1 MG/DOSE,) 4 MG/3ML solution pen-injector Diabetic polyneuropathy associated with type 2 diabetes mellitus ([facility]/HCC) Relevant Medications pregabalin (Lyrica) 75 MG capsule documented in this encounterSaint [facility] [id number] Instructions* Patient Instructions* Sonam Drake NP - [...] you need anything! documented in this encounterSaint Louis University Health Science [id number] Evaluation note* Encounter Date Diagnosis Assessment Notes [...] Left hand pain (ICD- 10 - M79.642) [employer] Other 12-13-2023 Evaluation note* Encounter Date Diagnosis [...] noted. Patient will f/u in 4 weeks. [employer] Other 12-08-2023 Evaluation note* Encounter Date Diagnosis [...] performed at [facility] which revealed degenerative changes in the hand as well as a remote avulsion fracture of the thumb. Patient states her family doctor is treating her for gout in her hand. Jan, History of gout (ICD-10 - Z87.39) Jan, Other Gout material w as printed [employer] Other 08-09-2023 Evaluation note* Encounter Date Diagnosis Assessment Notes Treatment Notes Treatment Clinical Notes Sep, Right wrist pain (ICD-10 - M25.531) [employer] Other 04-27-2023 NoteCONSULTATION CONSULTATION DATE: 06/07/2022 TO: [...] our patients to inform us about any icwl-mof-mixbdbs medications or herbal remedies/nutritional supplements/alternative remedies. 2. [...] care provider.[id number] Evaluation note * Encounter Date Diagnosis Assessment [...] understanding and is agreeable to treatment plan. [employer] Other 01-26-2023 NoteCONSULTATION PROCEDURE DATE: 03/08/2022 PREOPERATIVE [...] the clinic.[id number] NotePROCEDURE: XR KNEE LT 4V or > [...] by: PATTIE SALTER Date: 2022-02-16 11:29[facility]12-30-2022 NoteCONSULTATION CONSULTATION DATE: 02/09/2022 HISTORY [...] this plan.[id number] NotePROCEDURE: XR WRIST RT MIN 3 V COMPARISON: None. HISTORY: Injury of right wrist FINDINGS: BONES:No acute fracture or dislocation. Corticated bone fragment identified along the first carpometacarpal joint [degenerative in nature SOFT TISSUES:Moderate diffuse soft tissue swelling EFFUSION:None visible. OTHER: Negative. IMPRESSION: Soft tissue swelling, no acute fracture Electronically authenticated by: RYAN GOLDMAN Date: 2021-11-16 18:59[id number] NoteCONSULTATION CONSULTATION DATE: 11/01/2021 HISTORY OF PRESENT [...] this plan.[id number] NoteCONSULTATION PROCEDURE DATE: 11/01/2021 PRE AND POSTOPERATIVE [...] the clinic.[id number] NoteCONSULTATION PROCEDURE DATE: 08/09/2021 PREOPERATIVE DIAGNOSIS: Bilateral [...] will be followed up in the clinic. [facility] Signed and Approved by: CRYS PIERCE . 08/10/2021 13:37:00[facility]06-08-2022 NoteCONSULTATION CONSULTATION DATE: 07/19/2021 HISTORY [...] by: CRYS PIERCE . 07/20/2021 10:33:00[facility]05-25-2022 NotePROCEDURE: XR FOOT RT MIN [...] by: PATTIE SALTER Date: 2021-07-05 11:11[facility]05-10-2022 NoteCONSULTATION CONSULTATION DATE: 06/20/2021 CHIEF [...] like to proceed. CC: Jonathan Edwards M.D. [facility] Signed and Approved by: DR RICARDO HOLM . 06/27/2021 10:40:00[facility]* Diagnosis Routine cervical smear Screening for malignant neoplasm of the cervix documented in this encounter [facility] Work Phone: evaluation note* Diagnosis Diabetic polyneuropathy associated with type 2 diabetes mellitus (CMS/HCC)- Primary documented in this encounter [facility] HealthcareEvaluation noteNo assessment information availableOhiohealth Mansfield [facility] Work Phone: Evaluation note* Diagnosis Encounter [...] diabetes mellitus (CMS/HCC) documented in this encounter [facility] HealthcareEvaluation note* Diagnosis Encounter for screening mammogram [...] Tobacco use disorder documented in this encounter [facility] HealthcareEvaluation note* Diagnosis Encounter for screening mammogram [...] and stress (male)(female) documented in this encounter [facility] Healthcare[facility]* Diagnosis Encounter for screening mammogram [...] without long-term current use of insulin ([facility])- Primary Other hyperlipidemia ([facility]/HCC) Essential hypertension Unspecified essential hypertension Bilateral lower extremity edema Lumbar back pain- Primary Lumbago Hospital discharge follow-up Other follow-up examination Essential hypertension- Primary Unspecified essential hypertension Type 2 diabetes mellitus with diabetic microalbuminuria, without long-term current use of insulin ([facility]) Morbid (severe) obesity due to excess calories (E66.01) Other hyperlipidemia (CMS/HCC) Lumbar back pain Lumbago Type 2 diabetes mellitus without complication, without long-term current use of insulin ([facility]) Diabetic polyneuropathy associated with type 2 diabetes mellitus ([facility]) Mixed urge and stress incontinence Mixed incontinence urge and stress (male)(female) Snoring Other dyspnea and respiratory abnormality Encounter for long-term (current) use of high-risk medication Encounter for long-term (current) use of other medications Type 2 diabetes mellitus with diabetic microalbuminuria, without long-term current use of insulin ([facility])- Primary Essential hypertension Unspecified essential hypertension Other hyperlipidemia ([facility]/HCC) Snoring Other dyspnea and respiratory abnormality Mixed urge and stress incontinence Mixed incontinence urge and stress (male)(female) Lumbar back pain Lumbago [facility]* Diagnosis Essential hypertension- Primary Unspecified essential hypertension Type 2 diabetes mellitus with diabetic microalbuminuria, without long-term current use of insulin ([facility]) Morbid (severe) obesity due to excess calories (E66.01) Other hyperlipidemia ([facility]) Lumbar back pain Lumbago Type 2 diabetes mellitus without complication, without long-term current use of insulin ([facility]) Diabetic polyneuropathy associated with type 2 diabetes mellitus ([facility]) Mixed urge and stress incontinence Mixed incontinence urge and stress (male)(female) Snoring Other dyspnea and respiratory abnormality [facility]* Diagnosis Gout, unspecified cause, unspecified chronicity, unspecified site documented [facility]* Diagnosis Diabetic polyneuropathy associated with type 2 diabetes mellitus ([facility]/HCC) documented [facility]* [...] without long-term current use of insulin ([facility]/HCC) Diabetic polyneuropathy associated with type 2 diabetes [...] of insulin (CMS/HCC) documented in this encounter [facility]* Diagnosis Encounter for screening mammogram [...] Other hyperlipidemia (CMS/HCC) documented in this encounter [facility]* Diagnosis Encounter for screening mammogram [...] fracture presence (CMS/HCC) documented in this encounter [facility]* Diagnosis Encounter for screening [...] esophagitis Esophageal reflux documented in this encounter [facility]* Diagnosis Encounter for screening mammogram [...] of insulin (CMS/HCC) documented in this encounter [facility]* Diagnosis Encounter for screening mammogram [...] routine healing, subsequent encounter Other hyperlipidemia ([facility]) Hyperuricemia Other abnormal blood chemistry Osteoporosis, unspecified osteoporosis type, unspecified pathological fracture presence ([facility]) Diabetic polyneuropathy associated with type 2 diabetes mellitus ([facility]) Gastroesophageal reflux disease without esophagitis Esophageal reflux Migraine with aura and without status migrainosus, not intractable ([facility]) Hospital discharge follow-up Other follow-up examination Type 2 diabetes mellitus with diabetic microalbuminuria, without long-term current use of insulin ([facility])- Primary Other hyperlipidemia ([facility]) Essential hypertension Unspecified essential hypertension Bilateral lower extremity edema Lumbar back pain- Primary Lumbago Hospital discharge follow-up Other follow-up examination Essential hypertension- Primary Unspecified essential hypertension Type 2 diabetes mellitus with diabetic microalbuminuria, without long-term current use of insulin ([facility]) Morbid (severe) obesity due to excess calories (E66.01) Other hyperlipidemia ([facility]) Lumbar back pain Lumbago Type 2 diabetes mellitus without complication, without long-term current use of insulin ([facility]) Diabetic polyneuropathy associated with type 2 diabetes mellitus ([facility]) Mixed urge and stress incontinence Mixed incontinence urge and stress (male)(female) Snoring Other dyspnea and respiratory abnormality Encounter for long-term (current) use of high-risk medication Encounter for long-term (current) use of other medications Type 2 diabetes mellitus with diabetic microalbuminuria, without long-term current use of insulin ([facility])- Primary Essential hypertension Unspecified essential hypertension Other hyperlipidemia ([facility]) Snoring Other dyspnea and respiratory abnormality Mixed urge and stress incontinence Mixed incontinence urge and stress (male)(female) Upper respiratory infection with cough and congestion- Primary Lumbar back pain Lumbago Migraine with aura and without status migrainosus, not intractable ([facility]) Type 2 diabetes mellitus with diabetic microalbuminuria, without long-term current use of insulin ([facility]) Diabetic polyneuropathy associated with type 2 diabetes mellitus ([facility]) Other hyperlipidemia ([facility]) Hidradenitis [...] of insulin (CMS/HCC) documented in this encounter [facility] HealthcareEvaluation note* Diagnosis Encounter for screening mammogram [...] of insulin (CMS/HCC) documented in this encounter [facility]Evaluation [facility]* Diagnosis Encounter for screening mammogram [...] without long-term current use of insulin ([facility]) Back spasm Other symptoms referable to back Closed fracture of proximal end of left fibula with routine healing, unspecified fracture morphology, subsequent encounter Closed nondisplaced fracture of second metatarsal bone of left foot with routine healing, subsequent encounter Other hyperlipidemia ([facility]) Hyperuricemia Other abnormal blood chemistry Osteoporosis, unspecified osteoporosis type, unspecified pathological fracture presence ([facility]) Diabetic polyneuropathy associated with type 2 diabetes mellitus ([facility]) Gastroesophageal reflux disease without esophagitis Esophageal reflux Migraine with aura and without status migrainosus, not intractable ([facility]) Hospital discharge follow-up Other follow-up examination Type 2 diabetes mellitus with diabetic microalbuminuria, without long-term current use of insulin ([facility])- Primary Other hyperlipidemia (CMS/HCC) Essential hypertension Unspecified essential hypertension Bilateral lower extremity edema Lumbar back pain- Primary Lumbago Hospital discharge follow-up Other follow-up examination Essential hypertension- Primary Unspecified essential hypertension Type 2 diabetes mellitus with diabetic microalbuminuria, without long-term current use of insulin ([facility]) Morbid (severe) obesity due to excess calories (E66.01) Other hyperlipidemia (CMS/[facility]) Lumbar back pain Lumbago Type 2 diabetes mellitus without complication, without long-term current use of insulin ([facility]) Diabetic polyneuropathy associated with type 2 diabetes mellitus ([facility]) Mixed urge and stress incontinence Mixed incontinence urge and stress (male)(female) Snoring Other dyspnea and respiratory abnormality Encounter for long-term (current) use of high-risk medication Encounter for long-term (current) use of other medications Type 2 diabetes mellitus with diabetic microalbuminuria, without long-term current use of insulin ([facility])- Primary Essential hypertension Unspecified essential hypertension Other hyperlipidemia ([facility]) Snoring Other dyspnea and respiratory abnormality Mixed urge and stress incontinence Mixed incontinence urge and stress (male)(female) Upper respiratory infection with cough and congestion- Primary Lumbar back pain Lumbago Migraine with aura and without status migrainosus, not intractable ([facility]) Type 2 diabetes mellitus with diabetic microalbuminuria, without long-term current use of insulin ([facility]) Diabetic polyneuropathy associated with type 2 diabetes mellitus ([facility]/HCC) Other hyperlipidemia ([facility]/HCC) Type 2 diabetes mellitus with diabetic microalbuminuria, without long-term current use of insulin (CMS/HCC)- Primary Essential hypertension Unspecified essential hypertension Other hyperlipidemia (CMS/HCC) JANETT (obstructive sleep apnea) Obstructive sleep apnea (adult) (pediatric) Type 2 diabetes mellitus without complication, without long-term current use of insulin (CMS/HCC) Bilateral lower extremity edema- Primary documented in this encounter [facility]Evaluation note* Diagnosis Encounter for screening mammogram [...] diabetes mellitus (CMS/HCC) documented in this encounter [facility] HealthcareEvaluation note* Diagnosis Encounter for screening mammogram [...] osteoporosis type, unspecified pathological fracture presence ([facility]) Diabetic polyneuropathy associated with type 2 diabetes mellitus ([facility]) Gastroesophageal reflux disease without esophagitis Esophageal reflux Migraine with aura and without status migrainosus, not intractable ([facility]) Hospital discharge follow-up Other follow-up examination Type 2 diabetes mellitus with diabetic microalbuminuria, without long-term current use of insulin ([facility])- Primary Other hyperlipidemia Essential hypertension Unspecified essential hypertension Bilateral lower extremity edema Lumbar back pain- Primary Lumbago Hospital discharge follow-up Other follow-up examination Essential hypertension- Primary Unspecified essential hypertension Type 2 diabetes mellitus with diabetic microalbuminuria, without long-term current use of insulin ([facility]) Morbid (severe) obesity due to excess calories (E66.01) Other hyperlipidemia Lumbar back pain Lumbago Type 2 diabetes mellitus without complication, without long-term current use of insulin Diabetic polyneuropathy associated with type 2 diabetes mellitus ([facility]) Mixed urge and stress incontinence Mixed incontinence urge and stress (male)(female) Snoring Other dyspnea and respiratory abnormality Encounter for long-term (current) use of high-risk medication Encounter for long-term (current) use of other medications Type 2 diabetes mellitus with diabetic microalbuminuria, without long-term current use of insulin ([facility])- Primary Essential hypertension Unspecified essential hypertension Other hyperlipidemia Snoring Other dyspnea and respiratory abnormality Mixed urge and stress incontinence Mixed incontinence urge and stress (male)(female) Type 2 diabetes mellitus with diabetic microalbuminuria, without long-term current use of insulin ([facility])- Primary Essential hypertension Unspecified essential hypertension Other hyperlipidemia JANETT (obstructive sleep apnea) Obstructive sleep apnea (adult) (pediatric) Type 2 diabetes mellitus without complication, without long-term current use of insulin Type 2 diabetes mellitus with diabetic microalbuminuria, without long-term current use of insulin ([facility])- Primary Morbid (severe) obesity due to excess calories ([facility]) Other [...] (CMS/HCC) Hypercalcemia- Primary documented in this encounter [facility]Evaluation note* Diagnosis Encounter for screening mammogram [...] hyperlipidemia Body mass index (BMI) 39.0-39.9, adult AJNETT (obstructive sleep apnea) Obstructive sleep apnea (adult) [...] diabetes mellitus (CMS/HCC) documented in this encounter [facility] HealthcareEvaluation note* Diagnosis Encounter for screening mammogram [...] osteoporosis type, unspecified pathological fracture presence ([facility]) Diabetic polyneuropathy associated with type 2 diabetes mellitus ([facility]) Gastroesophageal reflux disease without esophagitis Esophageal reflux Migraine with aura and without status migrainosus, not intractable ([facility]) Hospital discharge follow-up Other follow-up examination Type 2 diabetes mellitus with diabetic microalbuminuria, without long-term current use of insulin ([facility])- Primary Other hyperlipidemia Essential hypertension Unspecified essential hypertension Bilateral lower extremity edema Lumbar back pain- Primary Lumbago Hospital discharge follow-up Other follow-up examination Essential hypertension- Primary Unspecified essential hypertension Type 2 diabetes mellitus with diabetic microalbuminuria, without long-term current use of insulin ([facility]) Morbid (severe) obesity due to excess calories (E66.01) Other hyperlipidemia Lumbar back pain Lumbago Type 2 diabetes mellitus without complication, without long-term current use of insulin Diabetic polyneuropathy associated with type 2 diabetes mellitus ([facility]) Mixed urge and stress incontinence Mixed incontinence urge and stress (male)(female) Snoring Other dyspnea and respiratory abnormality Encounter for long-term (current) use of high-risk medication Encounter for long-term (current) use of other medications Type 2 diabetes mellitus with diabetic microalbuminuria, without long-term current use of insulin ([facility])- Primary Essential hypertension Unspecified essential hypertension Other hyperlipidemia Snoring Other dyspnea and respiratory abnormality Mixed urge and stress incontinence Mixed incontinence urge and stress (male)(female) Type 2 diabetes mellitus with diabetic microalbuminuria, without long-term current use of insulin ([facility])- Primary [...] parathyroid hormone (PTH) documented in this encounter [facility] HealthcareEvaluation note* Diagnosis Encounter for screening mammogram [...] other sinus- Primary documented in this encounter [facility] Healthcare[facility]* Diagnosis Encounter for screening mammogram [...] osteoporosis type, unspecified pathological fracture presence ([facility]) Diabetic polyneuropathy associated with type 2 diabetes mellitus ([facility]) Gastroesophageal reflux disease without esophagitis Esophageal reflux Migraine with aura and without status migrainosus, not intractable ([facility]) Hospital discharge follow-up Other follow-up examination Type 2 diabetes mellitus with diabetic microalbuminuria, without long-term current use of insulin ([facility])- Primary Other hyperlipidemia Essential hypertension Unspecified essential hypertension Bilateral lower extremity edema Lumbar back pain- Primary Lumbago Hospital discharge follow-up Other follow-up examination Essential hypertension- Primary Unspecified essential hypertension Type 2 diabetes mellitus with diabetic microalbuminuria, without long-term current use of insulin ([facility]) Morbid (severe) obesity due to excess calories (E66.01) Other hyperlipidemia Lumbar back pain Lumbago Type 2 diabetes mellitus without complication, without long-term current use of insulin Diabetic polyneuropathy associated with type 2 diabetes mellitus ([facility]) Mixed urge and stress incontinence Mixed incontinence urge and stress (male)(female) Snoring Other dyspnea and respiratory abnormality Encounter for long-term (current) use of high-risk medication Encounter for long-term (current) use of other medications Type 2 diabetes mellitus with diabetic microalbuminuria, without long-term current use of insulin ([facility])- Primary Essential hypertension Unspecified essential hypertension Other hyperlipidemia Snoring Other dyspnea and respiratory abnormality Mixed urge and stress incontinence Mixed incontinence urge and stress (male)(female) Type 2 diabetes mellitus with diabetic microalbuminuria, without long-term current use of insulin ([facility])- Primary [...] diabetes mellitus (CMS/HCC) documented in this encounter [facility] HealthcareEvaluation note* Diagnosis Encounter for screening mammogram [...] of insulin (CMS/HCC) documented in this encounter [facility] Healthcare[facility] note* Diagnosis Encounter for screening mammogram [...] hormone (PTH)- Primary documented in this encounter [facility] HealthcareEvaluation note* Diagnosis Encounter for screening mammogram [...] (severe) obesity due to excess calories ([facility]) Other [...] back pain Lumbago documented in this encounter [facility] HealthcareEvaluation note* Diagnosis Encounter for screening mammogram [...] (severe) obesity due to excess calories ([facility]) Other hyperlipidemia Body mass index (BMI) 39.0-39.9, [...] Vitamin D deficiency documented in this encounter [facility] HealthcareEvaluation note* Diagnosis Encounter for screening mammogram [...] (severe) obesity due to excess calories ([facility]) Other [...] back pain Lumbago documented in this encounter [facility] HealthcareEvaluation note* Diagnosis Encounter for screening mammogram [...] (severe) obesity due to excess calories ([facility]) Other hyperlipidemia Body mass index (BMI) 39.0-39.9, [...] unspecified cause- Primary documented in this encounter [facility] HealthcareEvaluation note* Diagnosis Encounter for screening mammogram [...] (severe) obesity due to excess calories ([facility]) Other [...] [facility]) documented in this encounter [facility] HealthcareEvaluation note* Diagnosis Encounter for screening mammogram [...] (severe) obesity due to excess calories ([facility]) Other [...] lower extremity edema documented in this encounter [facility] HealthcareEvaluation note* Diagnosis Encounter for screening mammogram [...] (severe) obesity due to excess calories ([facility]) Other [...] pathological fracture presence documented in this encounter [facility] HealthcareEvaluation note* Diagnosis Encounter for screening mammogram [...] (severe) obesity due to excess calories ([facility]) Other [...] diabetes mellitus (HCC) documented in this encounter [facility] HealthcareEvaluation note* Diagnosis Encounter for screening mammogram [...] (severe) obesity due to excess calories ([facility]) Other [...] back pain Lumbago documented in this encounter [facility] HealthcareEvaluation note* Diagnosis Encounter for screening mammogram [...] (severe) obesity due to excess calories ([facility]) Other [...] History tubal ligation Hospitalization History see above [employer] Other Reason for referral (narrative)* Consultation (Routine) - Pending Review Specialty Diagnoses / Procedures Referred By Darren acharya Referred To Contact Neurology Diagnoses Snoring Procedures MS OFFICE/OUTPATIENT NEW HIGH MDM 60 MINUTES Sonam Drake NP [address] [place] [address] Sivan Banda DO [address] [place] [address] Referral ID Status Reason Start Date Expiration Date Visits Requested Visits Authorized [id number] Pending Review Specialty Services Required 10/03/2023 03/31/2024 1 1 Scheduling Instructions Please include OV note from today * Consultation (Routine) - Pending Review Specialty Diagnoses / Procedures Referred By Darren acharya Referred To Contact Urology Diagnoses Mixed urge and stress incontinence Procedures MS OFFICE/OUTPATIENT NEW HIGH [facility] 60 MINUTES Sonam Drake NP [address] [place] [address] Skinny Villafuerte MD [address] [place] [address] Referral ID Status Reason Start Date Expiration Date Visits Requested Visits Authorized [id number] Pending Review Specialty Services Required 10/03/2023 03/31/2024 1 1 CRIS FernandezReason for referral (narrative)No reason for referral information availableOhio[facility] Work Phone: Summary Purpose Family History Relationship [...] Care Teams (unrecognized sec tion and content) Electronics Technology Instructor Relationship Specialty Start Date End Date Sr Jonathan Edwards DO [address] [place] [address] PCP - General Family Medicine 08/30/21 Electronics Technology Instructor Relationship Specialty Start Date End Date Shaikh [...] April 30, 2023 End: April 30, 2023 Electronics Technology Instructor Relationship Specialty Start Date End Date Jose Chandler MD [address] [place] [address] PCP - General Family Medicine 12/12/23 Sonam Drake NP [address] [place] [address] Nurse Practitioner Family Medicine 09/24/23 Electronics Technology Instructor Relationship Specialty Start Date End Date Jose Chandler MD [address] [place] [address] PCP - General Family Medicine 12/12/23 Sonam Drake NP [address] [place] [address] Nurse Practitioner Family Medicine 09/24/23 Electronics Technology Instructor Relationship Specialty Start Date End Date Jose Chandler MD [address] [place] [address] PCP - General Family Medicine 12/12/23 Sonam Drake NP [address] [place] [address] Nurse Practitioner Family Medicine 09/24/23 Electronics Technology Instructor Relationship Specialty Start Date End Date Jose Chandler MD [address] [place] [address] PCP - General Family Medicine 12/12/23 Sonam Drake NP [address] [place] [address] Nurse Practitioner Family Medicine 09/24/23 Electronics Technology Instructor Relationship Specialty Start Date End Date Jose Chandler MD [address] [place] [address] PCP - General Family Medicine 12/12/23 Sonam Drake NP [address] [place] [address] Nurse Practitioner Family Medicine 09/24/23 Electronics Technology Instructor Relationship Specialty Start Date End Date Jose Chandler MD [address] [place] [address] PCP - General Family Medicine 12/12/23 Sonam Drake NP [address] [place] [address] Nurse Practitioner Family Medicine 09/24/23 Electronics Technology Instructor Relationship Specialty Start Date End Date Jose Chandler MD [address] [place] [address] PCP - General Family Medicine 09/24/23 Sonam Drake NP [address] [place] [address] Nurse Practitioner Family Medicine 09/24/23 Electronics Technology Instructor Relationship Specialty Start Date End Date Jose Chandler MD [address] [place] [address] PCP - General Family Medicine 09/24/23 Sonam Drake NP [address] [place] [address] Nurse Practitioner Family Medicine 09/24/23 Electronics Technology Instructor Relationship Specialty Start Date End Date Jose Chandler MD [address] [place] [address] PCP - General Family Medicine 09/24/23 Sonam Drake NP [address] [place] [address] Nurse Practitioner Family Medicine 09/24/23 Electronics Technology Instructor Relationship Specialty Start Date End Date Jose hCandler MD [address] [place] [address] PCP - General Family Medicine 09/24/23 Sonam Drake NP [address] [place] [address] Nurse Practitioner Family Medicine 09/24/23 Electronics Technology Instructor Relationship Specialty Start Date End Date Jose Chandler MD [address] [place] [address] PCP - General Family Medicine 12/12/23 Sonam Drake NP [address] [place] [address] Nurse Practitioner Family Medicine 09/24/23 Electronics Technology Instructor Relationship Specialty Start Date End Date Jose Chandler MD [address] [place] [address] PCP - General Family Medicine 12/12/23 Sonam Drake NP [address] [place] [address] Nurse Practitioner Family Medicine 09/24/23 Electronics Technology Instructor Relationship Specialty Start Date End Date Jose Chandler MD [address] [place] [address] PCP - General Family Medicine 12/12/23 Sonam Drake NP [address] [place] [address] Nurse Practitioner Family Medicine 09/24/23 Electronics Technology Instructor Relationship Specialty Start Date End Date Jose Chandler MD [address] [place] [address] PCP - General Family Medicine 12/12/23 Sonam Drake NP [address] [place] [address] Nurse Practitioner Family Medicine 09/24/23 Electronics Technology Instructor Relationship Specialty Start Date End Date Jose Chandler MD [address] [place] [address] PCP - General Family Medicine 12/12/23 Sonam Drake NP [address] [place] [address] Nurse Practitioner Family Medicine 09/24/23 Electronics Technology Instructor Relationship Specialty Start Date End Date Jose Chandler MD [address] [place] [address] PCP - General Family Medicine 12/12/23 Sonam Drake NP [address] [place] [address] Nurse Practitioner Family Medicine 09/24/23 Electronics Technology Instructor Relationship Specialty Start Date End Date Jose Chandler MD [address] [place] [address] PCP - General Family Medicine 12/12/23 Sonam Drake NP [address] [place] [address] Nurse Practitioner Family Medicine 09/24/23 Electronics Technology Instructor Relationship Specialty Start Date End Date Jose Chandler MD [address] [place] [address] PCP - General Family Medicine 12/12/23 Sonam Darke NP [address] [place] [address] Nurse Practitioner Family Medicine 09/24/23 Electronics Technology Instructor Relationship Specialty Start Date End Date Jose Chandler MD [address] [place] [address] PCP - General Family Medicine 12/12/23 Sonam Drake NP [address] [place] [address] Nurse Practitioner Family Medicine 09/24/23 Electronics Technology Instructor Relationship Specialty Start Date End Date Jose Chandler MD [address] [place] [address] PCP - General Family Medicine 12/12/23 Sonam Drake NP [address] [place] [address] Nurse Practitioner Family Medicine 09/24/23 Electronics Technology Instructor Relationship Specialty Start Date End Date Jose Chandler MD [address] [place] [address] PCP - General Family Medicine 12/12/23 Sonam Drake NP Nurse Practitioner Family Medicine 09/24/23 Za Wilkerson NP [address] [place], [place] Nurse Practitioner Neurology 04/21/24 Sivan Banda DO [address] [place], [place] [address] Referring Physician Neurology 04/21/24 Electronics Technology Instructor Relationship Specialty Start Date End Date Jose Chandler MD [address] [place] [address] PCP - General Family Medicine 12/12/23 Sonam Drake NP Nurse Practitioner Family Medicine 09/24/23 Za Wilkerson NP [address] [place], [place] Nurse Practitioner Neurology 04/21/24 Sivan Banda DO [address] [place], [place] [address] Referring Physician Neurology 04/21/24 Electronics Technology Instructor Relationship Specialty Start Date End Date Jose Chandler MD [address] [place] [address] PCP - General Family Medicine 12/12/23 Sonam Drake NP Nurse Practitioner Family Medicine 09/24/23 Za Wilkerson NP [address] [place], [place] Nurse Practitioner Neurology 04/21/24 Sivan Banda DO [address] [place] [address] Referring Physician Neurology 04/21/24 Electronics Technology Instructor Relationship Specialty Start Date End Date Jose Chandler MD [address] [place] [address] PCP - General Family Medicine 12/12/23 Sonam Drake NP Nurse Practitioner Family Medicine 09/24/23 Za Wilkerson NP [address] [place], [place] Nurse Practitioner Neurology 04/21/24 Sivan Banda DO [address] [place] [address] Referring Physician Neurology 04/21/24 Electronics Technology Instructor Relationship Specialty Start Date End Date Jose Chandler MD [address] [place] [address] PCP - General Family Medicine 12/12/23 Sonam Drake NP Nurse Practitioner Family Medicine 09/24/23 Za Wilkerson NP [address] [place], [place] Nurse Practitioner Neurology 04/21/24 Sivan Banda DO [address] [place] [address] Referring Physician Neurology 04/21/24 Electronics Technology Instructor Relationship Specialty Start Date End Date Jose Chandler MD [address] [place] [address] PCP - General Family Medicine 12/12/23 Sonam Drake NP Nurse Practitioner Family Medicine 09/24/23 Za Wilkerson NP [address] [place] Nurse Practitioner Neurology 04/21/24 Sivan Banda DO [address] [place] [address] Referring Physician Neurology 04/21/24 Electronics Technology Instructor Relationship Specialty Start Date End Date Jose Chandler MD [address] [place] [address] PCP - General Family Medicine 12/12/23 Sonam Drake NP Nurse Practitioner Family Medicine 09/24/23 Za Wilkerson NP [address] [place], [place] Nurse Practitioner Neurology 04/21/24 Sivan Banda DO [address] [place] [address] Referring Physician Neurology 04/21/24 Team Status: Active [...] May 28, 2024 End: May 28, 2024 Electronics Technology Instructor Relationship Specialty Start Date End Date Jose Chandler MD [address] [place] [address] PCP - General Family Medicine 12/12/23 Sonam Drake NP Nurse Practitioner Family Medicine 09/24/23 Za Wilkerson NP [address] [place] Nurse Practitioner Neurology 04/21/24 Sivan Banda DO [address] [place] [address] Referring Physician Neurology 04/21/24 Electronics Technology Instructor Relationship Specialty Start Date End Date Jose Chandler MD [address] [place] [address] PCP - General Family Medicine 12/12/23 Sonam Drake NP Nurse Practitioner Family Medicine 09/24/23 Za Wilkerson, RONALDO [address] [place], [place] Nurse Practitioner Neurology 04/21/24 Sivan Banda DO [address] [place] [address] Referring Physician Neurology 04/21/24 Electronics Technology Instructor Relationship Specialty Start Date End Date Jose Chandler MD [address] [place] [address] PCP - General Family Medicine 12/12/23 Sonam Drake NP Nurse Practitioner Family Medicine 09/24/23 Za Wilkerson NP [address] [place] [address], [place] Nurse Practitioner Neurology 04/21/24 Sivan Banda DO [address] [place] [address] Referring Physician Neurology 04/21/24 Electronics Technology Instructor Relationship Specialty Start Date End Date Jose Chandler MD [address] [place] [address] PCP - General Family Medicine 12/12/23 Sonam Drake NP Nurse Practitioner Family Medicine 09/24/23 Za Wilkerson NP [address] [place] [address] Nurse Practitioner Neurology 04/21/24 Sivan Banda DO [address] [place] [address] Referring Physician Neurology 04/21/24 Electronics Technology Instructor Relationship Specialty Start Date End Date Jose Chandler MD [address] [place] [address] PCP - General Family Medicine 12/12/23 Sonam Drake NP Nurse Practitioner Family Medicine 09/24/23 Za Wilkerson NP [address] [place] [address] Nurse Practitioner Neurology 04/21/24 Sivan Banda DO [address] [place] [address] Referring Physician Neurology 04/21/24 Electronics Technology Instructor Relationship Specialty Start Date End Date Jose Chandler MD [address] [place] [address] PCP - General Family Medicine 12/12/23 Sonam Drake NP Nurse Practitioner Family Medicine 09/24/23 Za Wilkerson NP [address] [place] [address] Nurse Practitioner Neurology 04/21/24 Sivan Banda DO [address] [place] [address] Referring Physician Neurology 04/21/24 Electronics Technology Instructor Relationship Specialty Start Date End Date Jose Chandler MD [address] [place] [address] PCP - General Family Medicine 12/12/23 Sonam Drake NP Nurse Practitioner Family Medicine 09/24/23 Za Wilkerson NP [address] [place] [address] Nurse Practitioner Neurology 04/21/24 Sivan Banda DO [address] [place] [address] Referring Physician Neurology 04/21/24 Electronics Technology Instructor Relationship Specialty Start Date End Date Jose Chandler MD [address] [place] [address] PCP - General Family Medicine 12/12/23 Sonam Drake NP Nurse Practitioner Family Medicine 09/24/23 Za Wilkerson NP [address] [place] [address] Nurse Practitioner Neurology 04/21/24 Sivan Banda DO [address] [place] [address] Referring Physician Neurology 04/21/24 Electronics Technology Instructor Relationship Specialty Start Date End Date Jose Chandler MD [address] [place] [address] PCP - General Family Medicine 12/12/23 Sonam Drake NP Nurse Practitioner Family Medicine 09/24/23 Za Wilkerson, RONALDO [address] [place] [address] Nurse Practitioner Neurology 04/21/24 Sivan Banda DO [address] [place] [address] Referring Physician Neurology 04/21/24 Electronics Technology Instructor Relationship Specialty Start Date End Date Jose Chandler MD [address] [place] [address] PCP - General Family Medicine 12/12/23 Sonam Drake NP Nurse Practitioner Family Medicine 09/24/23 Za Wilkerson NP [address] [place] [address] Nurse Practitioner Neurology 04/21/24 Sivan Banda DO [address] [place] [address] Referring Physician Neurology 04/21/24 Electronics Technology Instructor Relationship Specialty Start Date End Date Jose Chandler MD [address] [place] [address] PCP - General Family Medicine 12/12/23 Sonam Drake NP Nurse Practitioner Family Medicine 09/24/23 Za Wilkerson NP [address] [place] [address] Nurse Practitioner Neurology 04/21/24 Sivan Banda DO [address] [place] [address] Referring Physician Neurology 04/21/24 Electronics Technology Instructor Relationship Specialty Start Date End Date Jose Chandler MD [address] [place] [address] PCP - General Family Medicine 12/12/23 Sonam Drake NP Nurse Practitioner Family Medicine 09/24/23 Za Wilkerson NP [address] [place] [address] Nurse Practitioner Neurology 04/21/24 Sivan Banda DO [address] [place] [address] Referring Physician Neurology 04/21/24 Electronics Technology Instructor Relationship Specialty Start Date End Date Jose Chandler MD [address] [place] [address] PCP - General Family Medicine 12/12/23 Sonam Drake NP Nurse Practitioner Family Medicine 09/24/23 Za Wilkerson NP [address] [place] [address] Nurse Practitioner Neurology 04/21/24 Sivan Banda DO [address] [place], [place] [address] Referring Physician Neurology 04/21/24 Team Status: Inactive [...] CREATED AUTHOR AUTHOR'S ORGANIZ ATION 10/06/2023 [facility] DATE CREATED AUTHOR AUTHOR'S ORGANIZ ATION 06/01/2024 [facility] DATE CREATED AUTHOR AUTHOR'S ORGANIZ ATION 07/15/2024 [facility] DATE CREATED AUTHOR AUTHOR'S ORGANIZ ATION 08/24/2024 [facility] EPIC REASON FOR VISIT [...] Diagnoses Low serum parathyroid hormone (PTH) Procedures MS OFFICE/OUTPATIENT NEW HIGH MDM 60 MINUTES Ameena Vera, RONALDO [address] [place] [address] Phone: tel: fax: Kasi Bennett MD [address] [facility] [address] [address] [place] [address] Phone: tel: fax: Referral ID Status Reason Start Date Expiration Date Visits Requested Visits Authorized [id number] Pending Review Specialty Services Required 07/14/2024 01/10/2025 [...] BE BASED ON THE PRIMARY CLINICAL RECORDS. [facility] [employer] [facility]. provides no warranty or guarantee of the accuracy or completeness of information in this document.
[2024-10-26 11:03] LABS: Albumin Level 2.9 g/dL (3.4-5.0); Anion Gap 12.6; Blood Urea Nitrogen 22.0 mg/dL (7.0-18.0); Calcium 8.4 mg/dL (8.5-10.1); Carbon Dioxide 27.8 mmol/L (21.0-32.0); Chloride 106 mmol/L (98-107); Estimated GFR (African America >60 (>=60 mL/min/1.73m^2); Estimated GFR (Non-African Ame >60 (>=60 mL/min/1.73m^2); Glucose 103 mg/dL (74-106); Magnesium 1.4 mg/dL (1.8-2.4); Potassium 4.4 mmol/L (3.5-5.1); Sodium 142 mmol/L (136-145)
[2024-10-27 10:09] LABS: Calcium 8.7 mg/dL (8.7-10.3)
== END 2024-10-26 10:06 | disposition home or self-care (01) ==
LOC: LAB 10:07
PROVIDERS: PCP Nurse Practitioner; Visit Provider Internal Medicine
DX: E83.52 Hypercalcemia (principal); R79.89 Other specified abnormal findings of blood chemistry; M46.1 Sacroiliitis, not elsewhere classified; E11.8 Type 2 diabetes mellitus with unspecified complications; Z79.85 Long-term (current) use of injectable non-insulin antidiabetic drugs; Z79.84 Long term (current) use of oral hypoglycemic drugs
CPT/HCPCS: 36415; 80069; 82306; 82310; 83735; 83970; J0665; J1010; Q9966

== ENCOUNTER 2024-11-04 10:12 | Outpatient (OUT) | payer OTHER, MEDICARE, SELFPAY ==
--- OUTSIDE RECORDS SUMMARY | 2024-06-10 06:00 | XMS_ITS ---
Author Organization [facility] in [place] Address [address] [place] [address] Care Team Providers Care Hand Stapler Name Role Phone Maricel HOLLIS, Primary Care Provider Carroll Hidalgo [phone] REASON FOR VISIT 1 year f/u from initial injury Encounters Encounter Location Date Provider Diagnosis [facility] ([facility]) [address] [place] [address] [place] [address] 06/10/2024 Carroll Jefferson Plan Of Treatment No Information Progress Notes * Jaun WEIRB:1965 (59 yo F)Acc No.[id number]:06/10/2024 UNLOCKED PROGRESS NOTE Follow Up Patient: Brian PENA Provider: Latoya Jefferson DPM, MS :1965 A ge:58 Y S ex:Female Date:06/10/2024 Address:[address] [place], [place] [id number] Pcp:Shaikh Maricel MD Subjective: * Chief Complaints: * 1 . 1 year f/u from initial injury. * Medical History: Objective: * Vitals: Assessment: Plan: * Treatment: * * Electronic signature of Freddie Jefferson DPM on 11/04/2024 at 10:15 AM EDT Sign off status: Pending Visit Status: O FF CANC (OFFICE CANCEL) * Provider: Latoya Jefferson DPM, MS Date: 0 06/10/2024 Generated for Danyel portillo/Roxanne/Aidenitting on: 0 11/04/2024 10:15 AM EDT
--- OUTSIDE RECORDS SUMMARY | 2024-11-02 10:10 | XMS_ITS | Encounter Summary ---
Author Organization [facility] Address [address] [place] [address] Care Team Providers Care Machine Mover Name Role Phone Ijeoma Drake WATER ENGINEER Unavailable [phone] Jose Chandler MD Primary Care Provider [phone] Za Wilkerson WATER ENGINEER Unavailable [phone] Madhuri Banda DO Unavailable [phone] Reason for Visit * Reason Comments Follow-up PTH LAB Encounter Details Date Type Department Care Team (Late st Contact Info) Description 11/02/2024 10:10 AM EDT Office Visit [facility] [address] [place] [address] Kasi Bennett MD [address] [place] [address] Low serum parathyroid hormone (PTH) (Primary Dx); Hypercalcemia; Vitamin D deficiency; Hypomagnesemia Social History Tobacco Use Types Packs/Day Years [...] often do you attend chur ch or advent services? Patient declined 10/02/2023 Do you belong to any clubs o r organizations such as mormonism groups, unions, fraternal or athletic groups, or [...] Recorded Patient Health Questionnaire-2 Score 0 10/03/2023 [facility] - Occupational [...] have money to get more. Patient declined 08/ PRAPARE - Transportation Answer Date Re corded [...] any time in the past 12 m [facility], were you homeless or living in a penitentiary (including now)? Patient declined 10/02/2023 Comments Unknown Sex and Gender Information Value Date Recorded Sex Assigned at Not on file Legal Sex Female 6:48 PM EDT Gender Identity Not on file Sexual Orientation Not on file documented as of this encounter Last Filed Vital Signs Vital Sign Reading Time Taken Comments Blood Pressure - - Pulse 83 11/02/2024 9:56 AM EDT Temperature - - Respiratory Rate 18 11/02/2024 9:56 AM EDT Oxygen Saturation 95% 11/02/2024 9:56 AM EDT Inhaled Oxygen Concentration - - Weight 94.3 kg (208 lb) 11/02/2024 9:56 AM EDT Height 152.4 cm (5') 11/02/2024 9:56 AM EDT Body Mass Index 40.62 11/02/2024 9:56 AM EDT documented in this encounter Progress Notes * Kasi Bennett MD - 11/02/2024 10:10 AM EDT Brian Weir is a 59 y.o. female No ref. provider found presents with chief complaint of Follow-up (PTH LAB) HPI: IM : 10/2024 Follow-up visit 11/02/2024 calcium back to normal 8.7 ( 8.7-10.3) PTH 30 ( 15- 65), vitamin-D 80, magnesium in the low side 1.4 ( 1.8-2.1), and calcium 8.4 in the BMP results, currently she is on vitamin-D 1000 units, and off calcium supplements. 07/2024 History of Present Illness The patient presents [...] MORE THAN 3 TABLETS DAILY Continuous Glucose Lithograph Press Operator Tinware (Dexcom G7 Lithograph Press Operator Tinware) device 1 each, Does not apply, Continuous divalproex (DEPAKOTE) 500 mg, Oral, 2 times [...] 24 hours. rosuvastatin (CRESTOR) 20 mg, Oral, Every evening ALLERGIES: No Known Allergies Past Medical History: [...] SYSTEM REVIEWED AND NEGATIVE OBJECTIVE: Visit Vitals Pulse 83 Resp 18 Ht 5' Wt 208 lb SpO2 95% BMI 40.62 kg/m?? Smoking Status Every Day BSA 2 m?? Physical Exam Constitutional: Appearance: Normal appearance. She [...] Diagnoses and all orders for this visit: Low serum parathyroid hormone (PTH) - Magnesium; Future - PTH, intact and calcium; Future - Renal function panel; Future - Vitamin D 25 hydroxy Total; Future Hypercalcemia - Magnesium; Future - PTH, intact and calcium; Future - Renal function panel; Future - Vitamin D 25 hydroxy Total; Future Calcium back to normal, actually in the low side she is off supplements. Vitamin D deficiency - Magnesium; Future - PTH, intact and calcium; Future - Renal function panel; Future - Vitamin D 25 hydroxy Total; Future Level 80 I told her to stop supplements. Hypomagnesemia - Magnesium; Future - PTH, intact and calcium; Future - Renal function panel; Future - Vitamin D 25 hydroxy Total; Future Magnesium 1.4, to start 400 mg once a day Follow up in about 6 months (around 05/02/2025). documented in this encounter Plan of Treatment Upcoming Encounters Date Type Department Care Team (Late st Contact Info) Description 04/06/2025 1:15 PM EST Office Visit [facility] [address] [place] [address] Elida Monroy MD [address] [place] [address] 05/03/2025 1:00 PM EDT Office Visit [facility] [address] [place] [address] Kasi Bennett MD [address] [place] [address] Scheduled Orders Name Type Priority Associated Diagnoses Orde r Schedule Magnesium Lab Routine Low serum parathyroid hormone (PTH) Hypercalcemia Vitamin D deficiency Hypomagnesemia Expected: 11/02/2024 (Approximate), Expires: 11/02/2025 PTH, intact and calcium Lab Routine Low serum parathyroid hormone (PTH) Hypercalcemia Vitamin D deficiency Hypomagnesemia Expected: 11/02/2024 (Approximate), Expires: 11/02/2025 Renal function panel Lab Routine Low serum parathyroid hormone (PTH) Hypercalcemia Vitamin D deficiency Hypomagnesemia Expected: 11/02/2024 (Approximate), Expires: 11/02/2025 Vitamin D 25 hydroxy Total Lab Routine Low serum parathyroid hormone (PTH) Hypercalcemia Vitamin D deficiency Hypomagnesemia Expected: 11/02/2024 (Approximate), Expires: 11/02/2025 documented as of this encounter Visit Diagnoses Diagnosis Low serum parathyroid hormone (PTH)- Primary Hypercalcemia Vitamin D deficiency Hypomagnesemia Disorders of magnesium metabolism documented in this encounter Care Teams Machine Mover Relationship Specialty Start Date End Date Jose Chandler MD PCP - General Family Medicine 12/12/23 Ijeoma Drake NP Nurse Practitioner Family Medicine 09/24/23 Za Wilkerson NP Nurse Practitioner Neurology 04/21/24 Madhuri Banda DO [address] [place] [address] Referring Physician Neurology 04/21/24 documented as of this encounter
--- OUTSIDE RECORDS SUMMARY | 2024-11-04 10:15 | XMS_ITS | Encounter Summary ---
Author Organization [facility] Address [address] [place] [address] Care Team Providers Care Mail Technician Name Role Phone Ijeoma Drake CUSTOMER SERVICER Unavailable [phone] Jose Chandler MD Primary Care Provider [phone] Za Wilkerson CUSTOMER SERVICER Unavailable [phone] Madhuri Banda DO Unavailable [phone] Encounter Details Date Type Department Care [...] often do you attend chur ch or buddhism services? Patient declined 10/02/2023 Do you belong to any clubs o r organizations such as christianity groups, unions, fraternal or athletic groups, or [...] Recorded Patient Health Questionnaire-2 Score 0 10/03/2023 [facility] - [...] any time in the past 12 m [facility], were you homeless or living in a senior living (including now)? Patient declined 10/02/2023 Comments Unknown Sex and Gender Information Value Date Recorded Sex Assigned at Not on file Legal Sex Female 6:48 PM EDT Gender Identity Not on file Sexual Orientation Not on file documented as of this encounter Plan of Treatment Upcoming Encounters Date Type Department Care Team (Late st Contact Info) Description 04/06/2025 1:15 PM EST Office Visit [facility] [address] [place] [address] Elida Monroy MD [address] [place] [address] 05/03/2025 1:00 PM EDT Office Visit [facility] [address] [place] [address] Kasi Bennett MD [address] [place] [address] documented as of this encounter Procedures Procedure Name Priority Date/Time Associated Diagnosis Comments XR FOOT LT MIN 3V 12/23/2023 7:3 9 AM EST documented in this encounter Results * XR FOOT LT MIN 3V (12/23/2023 7:39 AM EST) Anatomical Region Laterality Modality Other 12/23/2023 7:39 AM EST Narrative 12/23/2023 7:41 AM EST The [address] [address] XRay Report Signed Patient: KARINA WEIR MR#: [id number] : 1965 Acct:[id number] Age/Sex: 58 / F ADM Date: 12/18/23 Loc: RAD Attending Dr: Sussy Jefferson D.P.M. Ordering Physician: Sussy Jefferson D.P.M. Date of Service: 12/18/23 Procedure(s): XR foot LT min 3V Accession Number(s): [id number] cc: Shaikh Erica Connelly; Sussy Jefferson D.P.M. The [place] [address] Patient Name: KARINA EWIR MRN: [employer]:[id number] date: 1965 Sex: F Assigned Patient Location: RAD Current Patient Location: PT Accession/Order Number: [id number] Exam Date: 12/18/2023 10:58 Report Date: 12/23/2023 [...] Signed By: 12/23/23 0741 DD/ 0739 TD/TT: Pharmacology Professor: Procedure Note Radiology, Radiologist, MD - 12/23/2023 [place] [address] XRay Report Signed Patient: KARINA WEIR KMR#: [id number] : 1965Acct:[id number] Age/Sex: 58 / FADM Date: 12/18/23 Loc: RAD Attending Dr: Sussy Jefferson D.P.M. Ordering Physician: Sussy Jefferson D.P.M. Date of Service: 12/18/23 Procedure(s): XR foot LT min 3V Accession Number(s): [id number] cc: Shaikh Erica Connelly; Sussy Jefferson D.P.M. [address] [address] Patient Name: KARINA WEIR MRN: [id number]:[id number] date: 1965 Sex: F Assigned Patient Location: RAD Current Patient Location: PT Accession/Order Number: [id number] Exam Date: 12/18/2023 10:58 Report Date: 12/23/2023 [...] Ryan Goldman M.D. Signed By:12/23/23740 DD/ TD/TT: Pharmacology Professor: us Generic External Data Provider [facility] Final Result documented in this encounter Visit Diagnoses Not on filedocumented in this encounter Care Teams Mail Technician Relationship Specialty Start Date End Date Jose Chandler MD PCP - General Family Medicine 12/12/23 Ijeoma Drake NP Nurse Practitioner Family Medicine 09/24/23 Za Wilkerson NP Nurse Practitioner Neurology 04/21/24 Madhuri Banda DO [address] [place] [address] Referring Physician Neurology 04/21/24 documented as of this encounter
--- OUTSIDE RECORDS SUMMARY | 2024-11-04 10:15 | XMS_ITS | Encounter Summary ---
Author Organization [facility] Address [address] [place] [address] Care Team Providers Care Fiberglass Ski Maker Name Role Phone Jose Chandler MD Primary Care Provider [phone] Ijeoma Drake UPSETTER HELPER Unavailable [phone] Unallocated, Noms Provider Primary Care Provi shayna Jose Chandler MD Primary Care Provider [phone] Za Wilkerson UPSETTER HELPER Unavailable [phone] Madhuri Banda DO Unavailable [phone] Encounter Details Date Type Department Care [...] week 10/02/2023 How often do you attend [facility] [place] or denominational services? Patient declined 10/02/2023 Do you belong [...] Recorded Patient Health Questionnaire-2 Score 0 10/03/2023 [facility]at ional [facility] - Occupational Stress Questionnaire Answer Date [...] Description 04/06/2025 1:15 PM EST Office Visit [facility] [address] [place] [address] Elida Monroy MD [address] [place] [address] 05/03/2025 1:00 PM EDT Office Visit [facility] [address] [place] [address] Kasi Bennett MD [address] [place] [address] documented as of this encounter Procedures Procedure Name Priority Date/Time Associated Diagnosis Comments XR FOOT LT MIN 3V 10/17/2023 6:5 8 AM EDT documented in this encounter Results * XR FOOT LT MIN 3V (10/17/2023 6:58 AM EDT) Anatomical Region Laterality Modality Other 10/17/2023 6:58 AM EDT Narrative 10/17/2023 7:01 AM EDT The [place] [id number] XRay Report Signed Patient: KARNIA WEIR MR#: [id number] : 1965 Acct:[id number] Age/Sex: 57 / F ADM Date: 10/16/23 Loc: EC Attending Dr: Sussy Jefferson D.P.M. Ordering Physician: Sussy Jefferson D.P.M. Date of Service: 10/16/23 Procedure(s): XR foot LT min 3V Accession Number(s): [id number] cc: Shaikh Erica Connelly; Sussy Jefferson D.P.M. The [place] [address] Patient Name: KARINA WEIR MRN: [facility]:[id number] date: 1965 Sex: F Assigned Patient Location: Current Patient Location: Accession/Order Number: [id number] Exam Date: 10/16/2023 11:20 Report Date: 10/17/2023 [...] M.D. Signed By: 10/17/23 0701 DD/ TD/TT: Breakfast Manager: Procedure Note Radiology, Radiologist, - 10/17/2023 [place] [address] XRay Report Signed Patient: KARINA WEIR KMR#: [id number] : 1965Acct:[id number] Age/Sex: 57 / FADM Date: 10/16/23 Loc: EC Attending Dr: Sussy Jefferson D.P.M. Ordering Physician: Sussy Jefferson D.P.M. Date of Service: 10/16/23 Procedure(s): XR foot LT min 3V Accession Number(s): [id number] cc: Shaikh Erica Connelly; Sussy Jefferson D.P.M. [place] [address] Patient Name: KARINA WEIR MRN: [id number]:[id number] date: 1965 Sex: F Assigned Patient Location: Current Patient Location: Accession/Order Number: [id number] Exam Date: 10/16/2023 11:20 Report Date: 10/17/2023 [...] Navid Cortes M.D. Signed By:10/17/23700 DD/ TD/TT: Breakfast Manager: us Generic External Data Provider [facility] Final Result documented in this encounter Visit Diagnoses Not on filedocumented in this encounter Care Teams Fiberglass Ski Maker Relationship Specialty Start Date End Date Jose Chandler MD PCP - General Family Medicine 09/24/23 11/25/23 Unallocated, Timur Hernandez MD [address] [facility] [place] [address] PCP - General Family Medicine 11/26/23 12/11/23 Jose Chandler MD PCP - General Family Medicine 12/12/23 Ijeoma Drake NP Nurse Practitioner Family Medicine 09/24/23 Za Wilkerson NP [address] [place] [address] Nurse Practitioner Neurology 04/21/24 Madhuri Banda DO [address] [place] [address] Referring Physician Neurology 04/21/24 documented as of this encounter
--- OUTSIDE RECORDS SUMMARY | 2024-11-04 10:15 | XMS_ITS | Encounter Summary ---
Author Organization [facility] Address [address] [facility] [place] [address] Care Team Providers Care Poundmaster Name Role Phone Shaikh BUNNY Connelly Primary Care Provider [phone] Jose Chandler MD Primary Care Provider [phone] Ijeoma Drake CORPORATE OPERATIONS COMPLIANCE MANAGER Unavailable [phone] Unallocated, Timur Hernandez MD Primary Care Provi shayna Jose Chandler MD Primary Care Provider [phone] Za Wilkerson CORPORATE OPERATIONS COMPLIANCE MANAGER Unavailable [phone] Madhuri Banda DO Unavailable [phone] Encounter Details Date Type Department Care [...] Dermatology [address] [place] [address] Elida Monroy MD [address] [place] [address] 05/03/2025 1:00 PM EDT Office Visit [facility] [place] [facility] [address] [place] [address] Kasi Bennett MD [address] [place] [address] documented as of this encounter Procedures Procedure Name Priority Date/Time Associated Diagnosis Comments CT FOOT LT WO CON 09/13/2023 5:0 2 AM EDT documented in this encounter Results * CT FOOT LT WO CON (09/13/2023 5:02 AM EDT) Anatomical Region Laterality Modality Other 09/13/2023 5:02 AM EDT Narrative 09/13/2023 5:05 [place] [address] CT Scan Report Signed Patient: KARINA DE OLIVEIRA MR#: [id number] : 1965 Acct:[id number] Age/Sex: 57 / F ADM Date: 09/12/23 Loc: CT Attending Dr: Sussy Jefferson D.P.M. Ordering Physician: Sussy Jefferson D.P.M. Date of Service: 09/12/23 Procedure(s): CT foot LT wo con Accession Number(s): [id number] cc: Shaikh Erica Connelly [address] [address] Patient Name: KARINA DE OLIVEIRA MRN: [id number] date: 1965 Sex: F Assigned Patient Location: CT Current Patient Location: Accession/Order Number: [id number] Exam Date: 09/12/2023 12:57 Report Date: 09/13/2023 [...] Signed By: 09/13/23 0505 DD/ 0502 TD/TT: Behavioral Assistant: Procedure Note Radiology, Radiologist, MD - 09/13/2023 [place] [address] CT Scan Report Signed Patient: KARINA DE OLIVEIRA KMR#: [id number] : 1965Acct:[id number] Age/Sex: 57 / FADM Date: 09/12/23 Loc: CT Attending Dr: Sussy Jefferson D.P.M. Ordering Physician: Sussy Jefferson D.P.M. Date of Service: 09/12/23 Procedure(s): CT foot LT wo con Accession Number(s): [id number] cc: Shaikh Erica Connelly The [place] [address] Patient Name: KARINA DE OLIVEIRA MRN: [id number] date: 1965 Sex: F Assigned Patient Location: CT Current Patient Location: Accession/Order Number: [id number] Exam Date: 09/12/2023 12:57 Report Date: 09/13/2023 [...] Dictated By: Navid Cortes M.D. Signed By:09/13/23 0508 DD/ 0502 TD/TT: Behavioral Assistant: Generic External Data Provider [facility] Final Result documented in this encounter Visit Diagnoses Not on filedocumented in this encounter Care Teams Poundmaster Relationship Specialty Start Date End Date Shaikh Connelly MD [address] [place] [phone] PCP - General Internal Medicine 05/02/23 09/23/23 Jose Chandler MD [address] [place] [address] PCP - General Family Medicine 09/24/23 11/25/23 Unallocated, Timur Hernandez MD [address] [place] [address] PCP - General Family Medicine 11/26/23 12/11/23 Jose Chandler MD [address] [place] [address] PCP - General Family Medicine 12/12/23 Ijeoma Drake NP [address] [place] [address] Nurse Practitioner Family Medicine 09/24/23 Za Wilkerson NP [address] [facility] [address] Nurse Practitioner Neurology 04/21/24 Madhuri Banda DO [address] [place] [address] Referring Physician Neurology 04/21/24 documented as of this encounter
--- OUTSIDE RECORDS SUMMARY | 2024-11-04 10:15 | XMS_ITS | Encounter Summary ---
Author Organization [facility] Address [address] [facility] [place] [address] Care Team Providers Care Nail Artist Name Role Phone Shaikh BUNNY Connelly Primary Care Provider [phone] Jose Chandler MD Primary Care Provider [phone] Ijeoma Drake MOTION PICTURE EQUIPMENT SUPERVISOR Unavailable [phone] Unallocated, Timur Hernandez MD Primary Care Provi shayna Jose Chandler MD Primary Care Provider [phone] Za Wilkerson MOTION PICTURE EQUIPMENT SUPERVISOR Unavailable [phone] Madhuri Banda DO Unavailable [phone] Encounter Details Date Type Department Care [...] Dermatology [address] [place] [address] Elida Monroy MD [address] [place] [address] 05/03/2025 1:00 PM EDT Office Visit [facility] [place] [facility] [address] [place] [address] Kasi Bennett MD [address] [place] [address] documented as of this encounter Procedures Procedure Name Priority Date/Time Associated Diagnosis Comments XR FOOT LT MIN 3V 08/14/2023 3:3 0 PM EDT documented in this encounter Results * XR FOOT LT MIN 3V (08/14/2023 3:30 PM EDT) Anatomical Region Laterality Modality Other 08/14/2023 3:30 PM EDT Narrative 08/14/2023 3:32 [place] [address] XRay Report Signed Patient: KARINA DE OLIVEIRA MR#: [id number] : 1965 Acct:[id number] Age/Sex: 57 / F ADM Date: 08/13/23 Loc: EC Attending Dr: Sussy Jefferson D.P.M. Ordering Physician: Sussy Jefferson D.P.M. Date of Service: 08/13/23 Procedure(s): XR foot LT min 3V Accession Number(s): [id number] cc: Shaikh Erica Connelly; Sussy Jefferson D.P.M. The [address] [address] Patient Name: KARINA DE OLIVEIRA MRN: [id number] date: 1965 Sex: F Assigned Patient Location: EC Current Patient Location: EC Accession/Order Number: [id number] Exam Date: 08/13/2023 14:05 Report Date: 08/14/2023 [...] Signed By: 08/14/23 1532 DD/ 1530 TD/TT: Warehouse Delivery Manager: Procedure Note Radiology, Radiologist, MD - 08/14/2023 [place] [address] XRay Report Signed Patient: KARINA DE OLIVEIRA KMR#: [id number] : 1965Acct:[id number] Age/Sex: 57 / FADM Date: 08/13/23 Loc: EC Attending Dr: Sussy Jefferson D.P.M. Ordering Physician: Sussy Jefferson D.P.M. Date of Service: 08/13/23 Procedure(s): XR foot LT min 3V Accession Number(s): [id number] cc: Shaikh Erica Connelly; Sussy Jefferson D.P.M. The [place] [id number] Patient Name: KARINA DE OLIVEIRA MRN: [id number] date: 1965 Sex: F Assigned Patient Location: Current Patient Location: EC Accession/Order Number: [id number] Exam Date: 08/13/2023 14:05 Report Date: 08/14/2023 [...] M.D. Signed By:08/14/23 1532 DD/ 1530 TD/TT: Warehouse Delivery Manager: us Generic External Data Provider [facility] Final Result documented in this encounter Visit Diagnoses Not on filedocumented in this encounter Care Teams Nail Artist Relationship Specialty Start Date End Date Shaikh Connelly MD [address] [place] [address] PCP - General Internal Medicine 05/02/23 09/23/23 Jose Chandler MD [address] [place] [address] PCP - General Family Medicine 09/24/23 11/25/23 Unallocated, Timur Hernandez MD [address] [place] [address] PCP - General Family Medicine 11/26/23 12/11/23 Jose Chandler MD [address] [place] [place] [address] PCP - General Family Medicine 12/12/23 Ijeoma Drake NP [address] [place] [place] [address] Nurse Practitioner Family Medicine 09/24/23 Za Wilkerson NP [address] [place] [address] Nurse Practitioner Neurology 04/21/24 Madhuri Banda DO [address] [place] [address] Referring Physician Neurology 04/21/24 documented as of this encounter
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
--- OUTSIDE RECORDS SUMMARY | 2024-11-04 10:15 | XMS_ITS | Encounter Summary ---
Author Organization [facility] Address [address] [place] [address] Care Team Providers Care Painter Apprentice Name Role Phone Shaikh BUNNY Connelly Primary Care Provider [phone] Jose Chandler MD Primary Care Provider [phone] Ijeoma Drake DISPOSAL OPERATOR Unavailable [phone] Unallocated, Timur Hernandez MD Primary Care Provi shayna Jose Chandler MD Primary Care Provider [phone] Za Wilkerson DISPOSAL OPERATOR Unavailable [phone] Madhuri Banda DO Unavailable [phone] Encounter Details Date Type Department Care [...] Dermatology [address] [place] [address] Elida Monroy MD [address] [place] [address] 05/03/2025 1:00 PM EDT Office Visit [facility] [address] [place] [phone] Kasi Bennett MD [address] [place] [address] documented as of this encounter Procedures Procedure Name Priority Date/Time Associated Diagnosis Comments XR FOOT LT MIN 3V 07/24/2023 3:5 1 PM EDT documented in this encounter Results * XR FOOT LT MIN 3V (07/24/2023 3:51 PM EDT) Anatomical Region Laterality Modality Other 07/24/2023 3:51 PM EDT Narrative 07/24/2023 3:53 [place] [address] XRay Report Signed Patient: KARINA DE OLIVEIRA MR#: [id number] : 1965 Acct:[id number] Age/Sex: 57 / F ADM Date: 07/24/23 Loc: EC Attending Dr: Sussy Jefferson D.P.M. Ordering Physician: Sussy Jefferson D.P.M. Date of Service: 07/24/23 Procedure(s): XR foot LT min 3V Accession Number(s): [id number] cc: Shaikh Erica Connelly; Sussy Jefferson D.P.M. The [address] [address] Patient Name: KARINA DE OLIVEIRA MRN: [id number] date: 1965 Sex: F Assigned Patient Location: EC Current Patient Location: EC Accession/Order Number: [id number] Exam Date: 07/24/2023 13:37 Report Date: 07/24/2023 [...] Signed By: 07/24/23 1553 DD/ 1551 TD/TT: Metropolitan Editor: Procedure Note Radiology, Radiologist, MD - 07/24/2023 [place] [address] XRay Report Signed Patient: KARINA DE OLIVEIRA KMR#: [id number] : 1965Acct:[id number] Age/Sex: 57 / FADM Date: 07/24/23 Loc: EC Attending Dr: Sussy Jefferson D.P.M. Ordering Physician: Sussy Jefferson D.P.M. Date of Service: 07/24/23 Procedure(s): XR foot LT min 3V Accession Number(s): [id number] cc: Shaikh Erica Connelly; Sussy Jefferson D.P.M. The [address] [address] Patient Name: KARINA DE OLIVEIRA MRN: [id number] date: 1965 Sex: F Assigned Patient Location: Current Patient Location: Accession/Order Number: [id number] Exam Date: 07/24/2023 13:37 Report Date: 07/24/2023 [...] M.D. Signed By:07/24/23 1553 DD/ 155 TD/TT: Metropolitan Editor: Generic External Data Provider [facility] Final Result documented in this encounter Visit Diagnoses Not on filedocumented in this encounter Care Teams Painter Apprentice Relationship Specialty Start Date End Date Shaikh Connelly MD [address] [place] [address] PCP - General Internal Medicine 05/02/23 09/23/23 Jose Chandler MD [address] [place] [address] PCP - General Family Medicine 09/24/23 11/25/23 Unallocated, Timur Hernandez MD [address] [place] [address] PCP - General Family Medicine 11/26/23 12/11/23 Jose Chandler MD [address] [place] [address] PCP - General Family Medicine 12/12/23 Ijeoma Drake NP [address] [place] [address] Nurse Practitioner Family Medicine 09/24/23 Za Wilkerson NP [address] [place] [address] Nurse Practitioner Neurology 04/21/24 Madhuri Banda DO [address] [place] [address] Referring Physician Neurology 04/21/24 documented as of this encounter
--- OUTSIDE RECORDS SUMMARY | 2024-11-04 10:15 | XMS_ITS | Encounter Summary ---
Author Organization [facility] Address [address] [place] [address] Care Team Providers Care Nuclear Physician Name Role Phone Shaikh BUNNY Connelly Primary Care Provider [phone] Jose Chandler MD Primary Care Provider [phone] Ijeoma Drake RELAY MOTORMAN Unavailable [phone] Unallocated, Timur Hernandez MD Primary Care Provi shayna Jose Chandler MD Primary Care Provider [phone] Za Wilkerson RELAY MOTORMAN Unavailable [phone] Madhuri Banda DO Unavailable [phone] Encounter Details Date Type Department Care [...] Dermatology [address] [place] [address] Elida Monroy MD [address] [place] [address] 05/03/2025 1:00 PM EDT Office Visit [facility] [address] [place] [address] Kasi Bennett MD [address] [place] [address] documented as of this encounter Procedures Procedure Name Priority Date/Time Associated Diagnosis Comments XR FOOT LT MIN 3V 09/04/2023 7:4 9 AM EDT documented in this encounter Results * XR FOOT LT MIN 3V (09/04/2023 7:49 AM EDT) Anatomical Region Laterality Modality Other 09/04/2023 7:49 AM EDT Narrative 09/04/2023 7:52 [place] [address] XRay Report Signed Patient: KARINA DE OLIVEIRA MR#: [id number] : 1965 Acct:[id number] Age/Sex: 57 / F ADM Date: 09/03/23 Loc: EC Attending Dr: Sussy Jefferson D.P.M. Ordering Physician: Sussy Jefferson D.P.M. Date of Service: 09/03/23 Procedure(s): XR foot LT min 3V Accession Number(s): [id number] cc: Shaikh Erica Connelly; Sussy Jefferson D.P.M. The [address] [address] Patient Name: KARINA DE OLIVEIRA MRN: [id number] date: 1965 Sex: F Assigned Patient Location: EC Current Patient Location: Accession/Order Number: [id number] Exam Date: 09/03/2023 15:15 Report Date: 09/04/2023 [...] Signed By: 09/04/23 0752 DD/ 0749 TD/TT: Correctional Case Records Supervisor: Procedure Note Radiology, Radiologist, MD - 09/04/2023 [place] [address] XRay Report Signed Patient: KARINA DE OLIVEIRA KMR#: [id number] : 1965Acct:[id number] Age/Sex: 57 / FADM Date: 09/03/23 Loc: EC Attending Dr: Sussy Jefferson D.P.M. Ordering Physician: Sussy Jefferson D.P.M. Date of Service: 09/03/23 Procedure(s): XR foot LT min 3V Accession Number(s): [id number] cc: Shaikh Erica Connelly; Sussy Jefferson D.P.M. The [place] [address] Patient Name: KARINA DE OLIVEIRA MRN: [id number] date: 1965 Sex: F Assigned Patient Location: Current Patient Location: Accession/Order Number: [id number] Exam Date: 09/03/2023 15:15 Report Date: 09/04/2023 [...] M.D. Signed By:09/04/23 0752 DD/ 0749 TD/TT: Correctional Case Records Supervisor: Generic External Data Provider [facility] Final Result documented in this encounter Visit Diagnoses Not on filedocumented in this encounter Care Teams Nuclear Physician Relationship Specialty Start Date End Date Shaikh Connelly MD [address] [place] [address] PCP - General Internal Medicine 05/02/23 09/23/23 Jose Chandler MD [address] [place] [address] PCP - General Family Medicine 09/24/23 11/25/23 Unallocated, Noms MD David [address] [place] [address] PCP - General Family Medicine 11/26/23 12/11/23 Jose Chandler MD [address] [place] [address] PCP - General Family Medicine 12/12/23 Ijeoma Drake NP [address] [place] [address] Nurse Practitioner Family Medicine 09/24/23 Za Wilkerson NP [address] [place] [address] Nurse Practitioner Neurology 04/21/24 Madhuri Banda DO [address] [place] [address] Referring Physician Neurology 04/21/24 documented as of this encounter
--- OUTSIDE RECORDS SUMMARY | 2024-11-04 10:15 | XMS_ITS | Clinical Summary ---
Author Organization [facility] Healthcare Address [address] [place] [address] Care Team Providers Care Rubber Covering Machine Operator Name Role Phone Ijeoma Drake STORAGE WHARFAGE CLERK Unavailable [phone] Jose Chandler MD Primary Care Provider [phone] Za Wilkerson STORAGE WHARFAGE CLERK Unavailable [phone] Madhuri Banda DO Unavailable [phone] Allergies No known active allergies Medications rizatriptan (Maxalt) 10 MG tabletIndications: Migraine with aura and without status migrainosus, not intractable Take 1 tablet (10 mg) by mouth 1 (one) time if needed for migraine May repeat in 2 hours if unresolved. Do not exceed 30 mg in 24 hours. 9 tablet 12/17/19 24 Active Continuous Glucose Property And Casualty Insurance Agent ([employer] G7 Property And Casualty Insurance Agent) deviceIndications: Type 2 diabetes mellitus with diabetic microalbuminuria, without long-term current use of insulin ([facility]) 1 each continuously 1 each 03/03/19 25 Active Semaglutide, 2 MG/DOSE, (Ozempic, 2 MG/DOSE,) 8 MG/3ML solution pen-injectorIndica tions:Type 2 diabetes mellitus with diabetic microalbuminuria, without long-term current use of insulin ([facility]) Inject 2 mg under the skin every 7 (seven) days 9 mL 1 05/20/19 25 Active colchicine 0.6 MG tabletIndications: Chronic gout of multiple sites, unspecified cause TAKE 2 TABLETS BY MOUTH AT ONSET OF ACUTE GOUT, MAY TAKE 1 TABLET IN 1 HOURS. NO MORE THAN 3 TABLETS DAILY 15 tablet 1 08/06/19 25 Active oxyCODONE-acetamin ophen (Percocet) 5-325 MG tablet Take 1 tablet by mouth Daily as needed 07/02/19 Active allopurinol (Zyloprim) 300 MG tabletIndications: Chronic gout of multiple sites, unspecified cause Take 1 tablet (300 mg) by mouth Daily 90 tablet 08/21/19 025 Active famotidine (Pepcid) 20 MG tabletIndications: Gastroesophageal reflux disease without esophagitis Take 1 tablet (20 mg) by mouth in the morning and 1 tablet (20 mg) before bedtime. 180 tablet 08/21/19 025 Active furosemide (Lasix) 20 MG tabletIndications: Bilateral lower extremity edema Take 1 tablet (20 mg) by mouth if needed (swelling in legs) Take 20 mg by mouth if needed 90 tablet 08/21/19 025 Active divalproex (Depakote) 500 MG EC tabletIndications: Migraine with aura and without status migrainosus, not intractable Take 1 tablet (500 mg) by mouth in the morning and 1 tablet (500 mg) before bedtime. Do not crush, chew, or split. 180 tablet 09/01/19 026 Active metFORMIN (Glucophage) 500 MG tabletIndications: Type 2 diabetes mellitus with diabetic microalbuminuria, without long-term current use of insulin (HCC) Take 1 tablet (500 mg) by mouth in the morning and 1 tablet (500 mg) in the evening. Take with meals. 180 tablet 09/01/19 025 Active alendronate (Fosamax) 70 MG tabletIndications: Osteoporosis, unspecified osteoporosis type, unspecified pathological fracture presence Take 1 tablet (70 mg) by mouth every 7 (seven) days Take in the morning with a full glass of water, on an empty stomach, and do not take anything else by mouth or lie down for the next 30 min. 12 tablet 09/01/19 026 Active pregabalin (Lyrica) 75 MG capsuleIndications :Diabetic polyneuropathy associated with type 2 diabetes mellitus (HCC) Take 1 capsule (75 mg) by mouth in the morning and 1 capsule (75 mg) in the evening and 1 capsule (75 mg) before bedtime. 90 capsule 2 09/25/19 25 Active baclofen (Lioresal) 20 MG tabletIndications: Lumbar back pain Take 1 tablet (20 mg) by mouth 3 (three) times a day as needed for muscle spasms 90 tablet 1 09/30/19 25 Active rosuvastatin (Crestor) 20 MG tabletIndications: Other hyperlipidemia Take 1 tablet (20 mg) by mouth in the evening 90 tablet 1 10/06/19 25 025 Active diclofenac (Voltaren) 75 MG EC tabletIndications: Lumbar back pain Take 1 tablet (75 mg) by mouth in the morning and 1 tablet (75 mg) before bedtime. Do not crush, chew, or split. 180 tablet 1 07/28/19 25 025 Active Problems Problem Noted Date Diagnosed Date Low serum parathyroid hormone (PTH) 06/03/2024 Body mass index (BMI) 39.0-39.9, adult Cigarette nicotine dependence without complicati on 05/19/2024 Assessment & Plan (08/20/2024 6:27 AM EDT): The patient has been advised of the risks of continued smoking: stroke, WI, all forms of cancer, lung disease, and [...] of the risks of continued smoking: stroke, WI, all forms of cancer, lung disease, and [...] follow up after recent hospital admission at [facility] Reviewed hospital records. Answered patient's questions and concerns related to hospital stay/medication changes/results of testing. Back pain is better. C/w baclofen as needed. Has an apt with pain clinic Assessment & Plan (07/04/2023 2:15 PM EDT): Patient here for follow up after recent hospital admission at [facility] Reviewed hospital records. Answered patient's questions [...] Encounters Date Type Department Care Team Description 11/02/2024 10:10 AM EDT Office Visit [facility] [address] [place] [address] Kasi Bennett MD Low serum parathyroid hormone (PTH) (Primary Dx); Hypercalcemia; Vitamin D deficiency; Hypomagnesemia 11/02/2024 Bamboo flowsheet [facility] [address] [place] [address] Kasi Bennett MD 10/05/2024 Refill [facility] [address] [place] [address] Jose Chandler MD Other hyperlipidemia 09/29/2024 Refill [facility] [address] [place] [address] Ameena Vera RONALDO Lumbar back pain 09/28/2024 Telephone [facility] [address] [place] [address] Ameena Vera, STORAGE WHARFAGE CLERK 09/24/2024 Telephone [facility] [address] [place] [address] Ameena Vera, RONALDO 09/23/2024 Refill [facility] [address] [place] [address] Ameena Vera, RONALDO Diabetic polyneuropathy associated with type 2 diabetes mellitus (HCC) 09/22/2024 Telephone [facility] [address] [place] [address] Ameena Vera, RONALDO 09/22/2024 Abstract [facility] [address] [place] [address] Ameena Vera, RONALDO 09/21/2024 Orders Only [facility] [address] [place] [address] Aramis Live MD 09/21/2024 Abstract [facility] [address] [place] [address] Ameena Vera, RONALDO 09/21/2024 Abstract [facility] [address] [place] [address] Ameena Vera, RONALDO 08/20/2024 10:30 AM EDT Office Visit [facility] [address] [place] [address] Ameena Vera, RONALDO Type 2 diabetes mellitus with diabetic microalbuminuria, without long-term current use of insulin ([facility]) (Primary Dx); Essential hypertension; Morbid (severe) obesity due to excess calories (E66.01); Cigarette nicotine dependence without complication; Chronic gout of multiple sites, unspecified cause; Gastroesophageal reflux disease without esophagitis; Bilateral lower extremity edema 08/20/2024 Refill [facility] [address] [place] [address] Ameena Vera NP Bilateral lower extremity edema; Migraine with aura and without status migrainosus, not intractable ; Type 2 diabetes mellitus with diabetic microalbuminuria, without long-term current use of insulin ([facility]); Osteoporosis, unspecified osteoporosis type, unspecified pathological fracture presence 08/17/2024 Travel 08/05/2024 Refill [facility] [address] [place] [address] Ameena Vera NP Type 2 diabetes mellitus with diabetic microalbuminuria, without long-term current use of insulin ([facility]) 08/05/2024 Refill [facility] [address] [place] [address] Ameena Vera NP Chronic gout of multiple sites, unspecified cause (Primary Dx) 08/05/2024 Telephone [facility] [address] [place] [address] Ameena Vera NP from Last 3 Months [...] any clubs o r organizations such as pentecostal groups, unions, fraternal or athletic groups, or [...] Recorded Patient Health Questionnaire-2 Score 0 10/03/2023 [facility] - Occupational Stress [...] any time in the past 12 m [facility], were you homeless or living in a senior care (including now)? Patient declined 10/02/2023 Comments Unknown Sex and Gender Information Value Date Recorded Sex Assigned at Not on file Legal Sex Female 6:48 PM EDT Gender Identity Not on file Sexual Orientation Not on file Last Filed Vital Signs Vital Sign Reading Time Taken Comments Blood Pressure 90/58 08/20/2024 11:10 AM EDT Pulse 83 11/02/2024 9:56 AM EDT Temperature 36.9 C (98.5 F) 08/20/2024 10:37 AM EDT Respiratory Rate 18 11/02/2024 9:56 AM EDT Oxygen Saturation 95% 11/02/2024 9:56 AM EDT Inhaled Oxygen Concentration - - Weight 94.3 kg (208 lb) 11/02/2024 9:56 AM EDT Height 152.4 cm (5') 11/02/2024 9:56 AM EDT Body Mass Index 40.62 11/02/2024 9:56 AM EDT Plan of Treatment Upcoming Encounters Date Type Department Care Team (Late st Contact Info) Description 04/06/2025 1:15 PM EST Office Visit [facility] [address] [place] [address] Elida Monroy MD [address] [place] [address] 05/03/2025 1:00 PM EDT Office Visit [facility] [address] [place] [address] Kasi Bennett MD [address] [place] [address] Health Maintenance Due Date Last Done [...] Procedure Name Priority Date/Time Associated Diagnosis Comments PTH, INTACT WITHOUT CALCIUM Routine 10/27/2024 11:14 AM EDT Hypercalcemia VITAMIN D 25 HYDROXY TOTAL Routine 10/26/2024 3:10 PM EDT Low serum parathyroid hormone (PTH) Hypercalcemia Vitamin D deficiency RENAL FUNCTION PANEL Routine 10/26/2024 1:56 PM EDT Low serum parathyroid hormone (PTH) Hypercalcemia MAGNESIUM Routine 10/26/2024 1:56 PM EDT Low serum parathyroid hormone (PTH) Hypercalcemia MR BRAIN WO CONTRAST Routine 09/21/2024 6:09 [...] Recently Relevant to Health Maintenance Results * PTH, intact (10/27/2024 11:14 AM EDT) Blood Venous blood specimen / Unknown Ameena Vera NP LAB BLOOD ORDERABLES Final Resu lt Performing Organization Address [facility] de Phone Number [facility] * Vitamin D 25 hydroxy Total (10/26/2024 3:10 PM EDT) Blood Venous blood specimen / Unknown Kasi Bennett MD LAB BLOOD ORDERABLES Final Re sult Performing Organization Address [facility] de Phone Number [facility] * Magnesium (10/26/2024 1:56 PM EDT) Blood Venous blood specimen / Unknown Kasi Bennett MD LAB BLOOD ORDERABLES Final Re sult Performing Organization Address [facility] de Phone Number [facility] * Renal function panel (10/26/2024 1:56 PM EDT) Blood Venous blood specimen / Unknown Kasi Bennett MD LAB BLOOD ORDERABLES Final Re sult Performing Organization Address [facility] de Phone Number [facility] * MR brain wo contrast (09/21/2024 6:09 PM EDT) Anatomical Region Laterality Modality Brain Magnetic Resonan ce us Aramis Live MD IMG MRI PROCEDURES Final Result * XR chest 1 view (09/21/2024 6:06 PM EDT) Anatomical Region Laterality Modality Chest Radiographic Eliana ging us Aramis Live MD IMG XR PROCEDURES Final Result * (ABNORMAL) POCT glycosylated hemoglobin (Hb A1C) docked device (08/20/2024 10:56 AM EDT) Hemoglobin A1C 6.4 Blood Venous blood specimen / Unknown 08/20/2024 10:56 AM EDT Ameena Chuy HIGGINS POINT OF CARE TEST ENTER/EDIT O RDERABLES Final Result * MM TOMOSYNTHESIS SCREENING BI (03/18/2024 2:54 PM EST) Anatomical Region Laterality Modality Other 03/18/2024 2:54 PM EST Narrative 03/18/2024 2:54 [place] [address] Mammography Report Signed Patient: KARINA DE OLIVEIRA MR#: [id number] : 1965 Acct:[id number] Age/Sex: 58 / F ADM Date: 03/18/24 Loc: MAMMO Attending Dr: RADHA TRIVEDI Ordering Physician: RADHA TRIVEDI Results: Date of Service: 03/18/24 Follow Up: Procedure(s): MM tomosynthesis screening BI Accession Number(s): [id number] cc: LOCO DRAKE SUSAN Patient Name: KARINA DE OLIVEIRA MR#: [id number] : 1965 Exam Date: 03/18/2024 Ordering Doctor: DR RADHA TRIVEDI [facility] RADIOLOGY REPORT PROCEDURE: MM TOMOSYNTHESIS SCREENING [...] skin cancer at age 69. LOCATION: [facility] BREAST COMPOSITION: There are scattered areas of [...] 03/18/24 1454 DD/ 1454 TD/TT: Director Of Marketing Operations: Procedure Note Radiology, Radiologist, MD - 03/18/2024 [place] [address] Mammography Report Signed Patient: KARINA DE OLIVEIRA KMR#: [id number] : 1965Acct:[id number] Age/Sex: 58 / FADM Date: 03/18/24 Loc: MAMMO Attending Dr: RADHA TRIVEDI Ordering Physician: RADHA TRIVEDIResults: Date of Service: 03/18/24Follow Up: Procedure(s): MM tomosynthesis screening BI Accession Number(s): [id number] cc: LOCO DRAKE SUSAN Patient Name: KARINA DE OLIVEIRA MR#: [id number] : 1965 Exam Date: 03/18/2024 Ordering Doctor: DR RADHA TRIVEDI [facility] RADIOLOGY REPORT PROCEDURE: MM TOMOSYNTHESIS SCREENING BI COMPARISON: MM TOMOSYNTHESIS SCREENING BI, 03/20/2023. MG MAMM [id number] SALINA CAD, 01/31/2021. MG MAMM SCREEN SALINA [...] skin cancer at age 69. LOCATION: [facility] BREAST COMPOSITION: There are scattered areas of [...] M.D. Signed By:03/18/24 1454 DD/ 1454 TD/TT: Director Of Marketing Operations: Generic External Data Provider [facility] Final Result * Cologuard?? colon cancer screening (03/28/2023 7:20 PM EST) Stool Shaikh Maricel [facility] ORDER RUTH ANN Final Result from Last 3 Months or Most Recently Relevant to Health Maintenance Insurance [employer] Care Teams Rubber Covering Machine Operator Relationship Specialty Start Date End Date Jose Chandler MD PCP - General Family Medicine 12/12/23 Ijeoma Drake NP Nurse Practitioner Family Medicine 09/24/23 Za Wilkerson NP Nurse Practitioner Neurology 04/21/24 Madhuri Banda DO [address] [place] [address] Referring Physician Neurology 04/21/24
--- OUTSIDE RECORDS SUMMARY | 2024-11-04 10:15 | XMS_ITS | Encounter Summary ---
Author Organization [facility] Address [address] [place] [address] Care Team Providers Care Clearing Tub Worker Name Role Phone Ijeoma Lane CARPET RENOVATOR Unavailable [phone] Jose Chandler MD Primary Care Provider [phone] Za Wilkerson CARPET RENOVATOR Unavailable [phone] Madhuri Banda DO Unavailable Encounter Details Date Type Department Care Team [...] often do you attend chur ch or uatsdin services? Patient declined 10/02/2023 Do you belong to any clubs o r organizations such as presybeterian groups, unions, fraternal or athletic groups, or [...] Recorded Patient Health Questionnaire-2 Score 0 10/03/2023 [facility]at ional Health - [...] any time in the past [address] [facility], were you homeless or living in a prison (including now)? Patient declined 10/02/2023 Comments Unknown [...] Dermatology [address] [place] [address] Elida Monroy MD [address] [place] [address] 05/03/2025 1:00 PM EDT Office Visit [facility] [address] [place] [address] Kasi Bennett MD [address] [place] [address] documented as of this encounter Procedures Procedure Name Priority Date/Time Associated Diagnosis Comments XR FOOT LT MIN 3V 01/30/2024 5:3 8 AM EST documented in this encounter Results * XR FOOT LT MIN 3V (01/30/2024 5:38 AM EST) Anatomical Region Laterality Modality Other 01/30/2024 5:38 AM EST Narrative 01/30/2024 5:41 AM EST The [address] [address] XRay Report Signed Patient: KARINA WEIR MR#: [id number] : 1965 Acct:[id number] Age/Sex: 58 / F ADM Date: 01/29/24 Loc: RAD Attending Dr: Sussy Jefferson DPasqualePPasqualeRadha Ordering Physician: Sussy Jefferson D.P.M. Date of Service: 01/29/24 Procedure(s): XR foot LT min 3V Accession Number(s): [id number] cc: IJEOMA LANE; Sussy Jefferson D.P.M. The [place] [id number] Patient Name: KARINA WEIR MRN: [id number] date: 1965 Sex: F Assigned Patient Location: RAD Current Patient Location: Accession/Order Number: [id number] Exam Date: 01/29/2024 09:28 Report Date: 01/30/2024 [...] Signed By: 01/30/24 0541 DD/ 0538 TD/TT: Edge Kitter: Procedure Note Radiology, Radiologist, MD - 01/30/2024 [place] [address] XRay Report Signed Patient: KARINA WEIR KMR#: [id number] : 1965Acct:[id number] Age/Sex: 58 / FADM Date: 01/29/24 Loc: RAD Attending Dr: Sussy Jefferson D.P.M. Ordering Physician: Sussy Jefferson D.P.M. Date of Service: 01/29/24 Procedure(s): XR foot LT min 3V Accession Number(s): [id number] cc: IJEOMA LANE; Sussy Jefferson D.P.M. [place] [id number] Patient Name: KARINA WEIR MRN: [id number] date: 1965 Sex: F Assigned Patient Location: [facility] Current Patient Location: Accession/Order Number: [id number] Exam Date: 01/29/2024 09:28 Report Date: 01/30/2024 [...] M.D. Signed By:01/30/24 0541 DD/ 0538 TD/TT: Edge Kitter: Generic External Data Provider [facility] Final Result documented in this encounter Visit Diagnoses Not on filedocumented in this encounter Care Teams Clearing Tub Worker Relationship Specialty Start Date End Date Jose Chandler MD PCP - General Family Medicine 12/12/[address] NP Nurse Practitioner Family Medicine 09/24/23 Za Wilkerson NP Nurse Practitioner Neurology 04/21/24 Madhuri Banda DO [address] [place] [address] Referring Physician Neurology 04/21/24 documented as of this encounter
--- OUTSIDE RECORDS SUMMARY | 2024-11-04 10:15 | XMS_ITS | Encounter Summary ---
Author Organization [facility] Address [address] [place] [address] Care Team Providers Care Gynecologist Name Role Phone Shaikh BUNNY Connelly Primary Care Provider [phone] Jose Chandler MD Primary Care Provider [phone] Ijeoma Drake BALE SEWER Unavailable [phone] Unallocated, Timur Hernandez MD Primary Care Provi shayna Jose Chandler MD Primary Care Provider [phone] Za Wilkerson BALE SEWER Unavailable [phone] Madhuri Banda DO Unavailable [phone] Encounter Details Date Type Department Care Team (Late st Contact Info) Description 07/03/2023 Orders Only [facility] [address] [place] [address] Carroll Jefferson Social History Tobacco Use Types [...] Dermatology [address] [place] [address] Elida Monroy MD [address] [place] [address] 05/03/2025 1:00 PM EDT Office Visit [facility] [address] [place] [address] Kasi Bennett MD [address] [place] [address] documented as of this encounter [...] on filedocumented in this encounter Care Teams Gynecologist Relationship Specialty Start Date End Date Shaikh Connelly MD [address] [place] [address] PCP - General Internal Medicine 05/02/23 09/23/23 Jose Chandler MD [address] [place] [address] PCP - General Family Medicine 09/24/23 11/25/23 Unallocated, Timur Hernandez MD [address] [place] [address] PCP - General Family Medicine 11/26/23 12/11/23 Jose Chandler MD [address] [place] [address] PCP - General Family Medicine 12/12/23 Ijeoma Drake NP [address] [place] [place] [address] Nurse Practitioner Family Medicine 09/24/23 Za Wilkerson NP [address] [place] [address] Nurse Practitioner Neurology 04/21/24 Madhuri Banda DO [address] [place] [address] Referring Physician Neurology 04/21/24 documented as of this encounter
--- OUTSIDE RECORDS SUMMARY | 2024-11-04 10:15 | XMS_ITS | Encounter Summary ---
Author Organization [facility] Address [address] [place] [address] Care Team Providers Care Forestry Support Specialist Name Role Phone Shaikh BUNNY Connelly Primary Care Provider [phone] Jose Chandler MD Primary Care Provider [phone] Ijeoma Drake CHANGE MANAGEMENT SPECIALIST Unavailable [phone] Unallocated, Timur Provider Primary Care Provi shayna Jose Chandler MD Primary Care Provider [phone] Za Wilkerson CHANGE MANAGEMENT SPECIALIST Unavailable [phone] Madhuri Banda DO Unavailable [phone] Encounter Details Date Type Department Care [...] Dermatology [address] [place] [address] Elida Monroy MD [address] [place] [address] 05/03/2025 1:00 PM EDT Office Visit [facility] [address] [place] [address] Kasi Bennett MD [address] [place] [address] documented as of this encounter Procedures Procedure Name Priority Date/Time Associated Diagnosis Comments XR FOOT LT MIN 3V 07/03/2023 2:0 4 PM EDT documented in this encounter Results * XR FOOT LT MIN 3V (07/03/2023 2:04 PM EDT) Anatomical Region Laterality Modality Other 07/03/2023 2:04 PM EDT Narrative 07/03/2023 2:07 PM EDT The [address] [address] XRay Report Signed Patient: KARINA DE OLIVEIRA MR#: [id number] : 1965 Acct:[id number] Age/Sex: 57 / F ADM Date: 07/03/23 Loc: EC Attending Dr: Sussy Jefferson D.P.M. Ordering Physician: Sussy Jefferson D.P.M. Date of Service: 07/03/23 Procedure(s): XR foot LT min 3V Accession Number(s): [id number] cc: Shaikh Erica Connelly; Sussy Jefferson D.P.M. The [place] [address] Patient Name: KARINA DE OLIVEIRA MRN: [id number] date: 1965 Sex: F Assigned Patient Location: EC Current Patient Location: EC Accession/Order Number: [id number] Exam Date: 07/03/2023 10:54 Report Date: 07/03/2023 [...] Signed By: 07/03/23 1407 DD/ 1404 TD/TT: Wireline Operator: Procedure Note Radiology, Radiologist, MD - 07/03/2023 [place] [address] XRay Report Signed Patient: KARINA DE OLIVEIRA KMR#: [id number] : 1965Acct:[id number] Age/Sex: 57 / FADM Date: 07/03/23 Loc: EC Attending Dr: Sussy Jefferson D.P.M. Ordering Physician: Sussy Jefferson D.P.M. Date of Service: 07/03/23 Procedure(s): XR foot LT min 3V Accession Number(s): [id number] cc: Shaikh Erica Connelly; Sussy Jefferson D.P.M. The [place] [address] Patient Name: KARINA DE OLIVEIRA MRN: [id number] date: 1965 Sex: F Assigned Patient Location: Current Patient Location: Accession/Order Number: [id number] Exam Date: 07/03/2023 10:54 Report Date: 07/03/2023 [...] Goldman M.D. Signed By:07/03/23 1407 DD/ TD/TT: Wireline Operator: Generic External Data Provider [facility] Final Result documented in this encounter Visit Diagnoses Not on filedocumented in this encounter Care Teams Forestry Support Specialist Relationship Specialty Start Date End Date Shaikh Connelly MD [address] [place] [address] PCP - General Internal Medicine 05/02/23 09/23/23 Jose Chandler MD [address] [place] [address] PCP - General Family Medicine 09/24/23 11/25/23 Unallocated, Noms MD David [address] [place] [address] PCP - General Family Medicine 11/26/23 12/11/23 Jose Chandler MD [address] [place] [address] PCP - General Family Medicine 12/12/23 Ijeoma Drake NP [address] [place] [address] Nurse Practitioner Family Medicine 09/24/23 Za Wilkerson NP [address] [place] [address] Nurse Practitioner Neurology 04/21/24 Madhuri Banda DO [address] [place] [address] Referring Physician Neurology 04/21/24 documented as of this encounter
--- OUTSIDE RECORDS SUMMARY | 2024-11-04 10:15 | XMS_ITS | Encounter Summary ---
Author Organization [facility] Address [address] [place] [address] Care Team Providers Care Mixing Picker Tender Name Role Phone Ijeoma Drake SCIENCE PROFESSOR Unavailable [phone] Jose Chandler MD Primary Care Provider [phone] Za Wilkerson SCIENCE PROFESSOR Unavailable [phone] Madhuri Banda DO Unavailable [phone] Reason for Visit * Reason Comments Med Refill Encounter Details Date Type Department Care Team (Late st Contact Info) Description 05/06/2024 Refill [facility] [address] [facility] [facility] [place] [address] Ameena Vera NP [address] [facility] [place] [address] Bilateral lower extremity edema Social History Tobacco [...] often do you attend chur ch or mormon services? Patient declined 10/02/2023 Do you belong to any clubs o r organizations such as quaker groups, unions, fraternal or athletic groups, or [...] Recorded Patient Health Questionnaire-2 Score 0 10/03/2023 [facility] - Occupational [...] time in the past 12 m [facility], were you homeless or living in a [place] [facility] [place] facility (including now)? Patient declined 10/02/2023 Comments Unknown [...] Dermatology [address] [place] [address] Elida Monroy MD [address] [place] [address] 05/03/2025 1:00 PM EDT Office Visit [facility] [address] [place] [address] Kasi Bennett MD [address] [place] [address] documented as of this encounter Visit Diagnoses Diagnosis Bilateral lower extremity edema documented in this encounter Care Teams Mixing Picker Tender Relationship Specialty Start Date End Date Jose Chanlder MD PCP - General Family Medicine 12/12/23 Ijeoma Drake NP Nurse Practitioner Family Medicine 09/24/23 Za Wilkerson NP Nurse Practitioner Neurology 04/21/24 Madhuri Banda DO [address] [place] [address] Referring Physician Neurology 04/21/24 documented as of this encounter
--- OUTSIDE RECORDS SUMMARY | 2024-11-04 10:15 | XMS_ITS | Encounter Summary ---
Author Organization [facility] Address [address] [place] [address] Care Team Providers Care Certified Orthotic Fitter Name Role Phone Ijeoma Drake DOCKETING SPECIALIST Unavailable [phone] Jose Chandler MD Primary Care Provider [phone] Za Wilkerson DOCKETING SPECIALIST Unavailable [phone] Madhuri Banda DO Unavailable [phone] Encounter Details Date Type Department Care Team (Late st Contact Info) Description 06/03/2024 Orders Only [facility] [address] [facility] [place] [place] [address] Ameena Vera NP [address] [place] [address] Social History Tobacco Use Types Packs/Day Years [...] any clubs o r organizations such as jew groups, unions, fraternal or athletic groups, or [...] Recorded Patient Health Questionnaire-2 Score 0 10/03/2023 [facility] - Occupational [...] any time in the past 12 m [facility], were you homeless or living in a long term (including now)? Patient declined 10/02/2023 Comments Unknown [...] Dermatology [address] [place] [address] Elida Monroy MD [address] [place] [address] 05/03/2025 1:00 PM EDT Office Visit [facility] [address] [place] [address] Kasi Bennett MD [address] [place] [address] documented as of this encounter Visit Diagnoses Not on filedocumented in this encounter Care Teams Certified Orthotic Fitter Relationship Specialty Start Date End Date Jose Chandler MD PCP - General Family Medicine 12/12/23 Ijeoma Drake NP Nurse Practitioner Family Medicine 09/24/23 Za Wilkerson NP Nurse Practitioner Neurology 04/21/24 Madhuri Banda DO [address] [place] [address] Referring Physician Neurology 04/21/24 documented as of this encounter
--- OUTSIDE RECORDS SUMMARY | 2024-11-04 10:15 | XMS_ITS | Encounter Summary ---
Author Organization [facility] Address [address] [place] [address] Care Team Providers Care Crystal Mounter Name Role Phone Shaikh BUNNY Connelly Primary Care Provider [phone] Jose Chandler MD Primary Care Provider [phone] Ijeoma Drake INSPECTOR TIMERS Unavailable [phone] Unallocated, Timur Hernandez MD Primary Care Provi shayna Jose Chandler MD Primary Care Provider [phone] Za Wilkerson INSPECTOR TIMERS Unavailable [phone] Madhuri Banda DO Unavailable [phone] Encounter Details Date Type Department Care Team (Late st Contact Info) Description 08/20/2023 Orders Only [facility] [address] [place] [address] Danny Christiansen MD [address] [place], [place] [address] Social History Tobacco Use Types Packs/Day Years [...] Dermatology [address] [place] [address] Elida Monroy MD [address] [place] [address] 05/03/2025 1:00 PM EDT Office Visit [facility] [address] [place] [address] Kasi Bennett MD [address] [place] [address] documented as of this encounter [...] on filedocumented in this encounter Care Teams Crystal Mounter Relationship Specialty Start Date End Date Shaikh Connelly MD [address] [place] [address] PCP - General Internal Medicine 05/02/23 09/23/23 Jose Chandler MD [address] [place] [address] PCP - General Family Medicine 09/24/23 11/25/23 Unallocated, Timur Hernadnez MD [address] [place], [place] [address] PCP - General Family Medicine 11/26/23 12/11/23 Jose Chandler MD [address] [place] [address] PCP - General Family Medicine 12/12/23 Ijeoma Drake NP [address] [place] [address] Nurse Practitioner Family Medicine 09/24/23 Za Wilkerson NP [address] [place] [address] Nurse Practitioner Neurology 04/21/24 Madhuri Banda DO [address] [place] [address] Referring Physician Neurology 04/21/24 documented as of this encounter
--- OUTSIDE RECORDS SUMMARY | 2024-11-04 10:16 | XMS_ITS | Encounter Summary ---
Author Organization [facility] Address [address] [place] [address] Care Team Providers Care Beamer Helper Name Role Phone Shaikh BUNNY Connelly Primary Care Provider [phone] Shaikh BUNNY Connelly Primary Care Provider [phone] Jose Chandler MD Primary Care Provider [phone] Ijeoma Drake AREA ATTENDANT Unavailable [phone] Unallocated, Noms Provider Primary Care Provi shayna Jose Chandler MD Primary Care Provider [phone] Za Wilkerson AREA ATTENDANT Unavailable [phone] Madhuri Banda DO Unavailable [phone] Encounter Details Date Type Department Care [...] Office Visit [facility] [address] [place] [address] Elida Monroy MD [address] [place] [address] 05/03/2025 1:00 PM EDT Office Visit [facility] [place] [facility] [address] [place] [address] Kasi Bennett MD [address] [place] [address] documented as of this encounter Procedures Procedure Name Priority Date/Time Associated Diagnosis Comments MM TOMOSYNTHESIS SCREENING BI 03/20/2023 12:57 PM EST documented in this encounter Results * MM TOMOSYNTHESIS SCREENING BI (03/20/2023 12:57 PM EST) Anatomical Region Laterality Modality Other 03/20/2023 12:5 7 PM EST Narrative 03/20/2023 12:59 [place] [address] Mammography Report Signed Patient: KARINA DE OLIVEIRA MR#: [id number] : 1965 Acct:[id number] Age/Sex: 57 / F ADM Date: 03/20/23 Loc: MAMMO Attending Dr: RADHA TRIVEDI Ordering Physician: RADHA TRIVEDI Results: Date of Service: 03/20/23 Follow Up: Procedure(s): MM tomosynthesis screening BI Accession Number(s): [id number] cc: Shaikh Erica Connelly; RADHA TRIVEDI Patient Name: KARINA DE OLIVEIRA MR#: [id number] : 1965 Exam Date: 03/20/2023 Ordering Doctor: DR RADHA TRIVEDI CN RADIOLOGY [...] skin cancer at age 69. LOCATION: [facility] BREAST COMPOSITION: Scattered areas fibroglandular density. [...] By: 03/20/23 1259 DD/ 1257 TD/TT: General Accounting Clerk: Procedure Note Radiology, Radiologist, MD - 03/20/2023 [place] [address] Mammography Report Signed Patient: KARINA DE OLIVEIRA KMR#: [id number] : 1965Acct:[id number] Age/Sex: 57 / FADM Date: 03/20/23 Loc: MAMMO Attending Dr: RADHA TRIVEDI Ordering Physician: RADHA TRIVEDIResults: Date of Service: 03/20/23Follow Up: Procedure(s): MM tomosynthesis screening BI Accession Number(s): [id number] cc: Shaikh Erica Connelly; RADHA TRIVEDI Patient Name: KARINA DE OLIVEIRA MR#: [id number] : 1965 Exam Date: 03/20/2023 Ordering Doctor: DR RADHA TRIVEDI [facility] RADIOLOGY REPORT PROCEDURE: MM TOMOSYNTHESIS SCREENING [...] skin cancer at age 69. LOCATION: [facility] BREAST COMPOSITION: Scattered areas fibroglandular density. [...] Signed By:03/20/23 1259 DD/ 1257 TD/TT: General Accounting Clerk: us Generic External Data Provider [facility] Final Result documented in this encounter Visit Diagnoses Not on filedocumented in this encounter Care Teams Beamer Helper Relationship Specialty Start Date End Date Shaikh Connelly MD PCP - General Internal Medicine 11/11/22 05/01/23 Shaikh Connelly MD [address] [place] [address] PCP - General Internal Medicine 05/02/23 09/23/23 Jose Chandler MD [address] [place] [address] PCP - General Family Medicine 09/24/23 11/25/23 Unallocated, Timur Hernandez MD [address] [place] [address] PCP - General Family Medicine 11/26/23 12/11/23 Jose Chandler MD [address] [place] [address] PCP - General Family Medicine 12/12/23 Ijeoma Drake NP [address] [place] [address] Nurse Practitioner Family Medicine 09/24/23 Za Wilkerson NP [address] [place] [address] Nurse Practitioner Neurology 04/21/24 Madhuri Banda DO [address] [place] [address] Referring Physician Neurology 04/21/24 documented as of this encounter
--- OUTSIDE RECORDS SUMMARY | 2024-11-04 10:16 | XMS_ITS | Encounter Summary ---
Author Organization [facility] Address [address] [place] [address] Care Team Providers Care Printing Sign Machine Operator Name Role Phone Shaikh BUNNY Connelly Primary Care Provider [phone] Shaikh BUNNY Connelly Primary Care Provider [phone] Jose Chandler MD Primary Care Provider [phone] Ijeoma Drake EDUCATIONAL/DEVELOPMENT ASSISTANT Unavailable [phone] Unallocated, Noms Provider Primary Care Provi shayna Jose Chandler MD Primary Care Provider [phone] Za Wilkerson EDUCATIONAL/DEVELOPMENT ASSISTANT Unavailable [phone] Madhuri Banda DO Unavailable [phone] Encounter Details Date Type Department Care Team (Late st Contact Info) Description 03/21/2023 Orders Only [facility] [address] [place] [address] Shaikh Connelly MD [address] [place] [address] Social History Tobacco Use Types Packs/Day Years [...] [address] [place] [address] Elida Monroy MD [address] [place] [address] 05/03/2025 1:00 PM EDT Office Visit [facility] [address] [place] [address] Kasi Bennett MD [address] [place] [address] documented as of this encounter Procedures [...] on filedocumented in this encounter Care Teams Printing Sign Machine Operator Relationship Specialty Start Date End Date Shaikh Connelly MD PCP - General Internal Medicine 11/11/22 05/01/23 Shaikh Connelly MD [address] [place] [address] PCP - General Internal Medicine 05/02/23 09/23/23 Jose Chandler MD [address] [place] [address] PCP - General Family Medicine 09/24/23 11/25/23 Unallocated, Noms MD David [address] [facility] [place] [address] PCP - General Family Medicine 11/26/23 12/11/23 Jose Chandler MD [address] [place] [address] PCP - General Family Medicine 12/12/23 Ijeoma Drake NP [address] [place] [address] Nurse Practitioner Family Medicine 09/24/23 Za Wilkerson NP [address] [place] [address] Nurse Practitioner Neurology 04/21/24 Madhuri Banda DO [address] [place] [address] Referring Physician Neurology 04/21/24 documented as of this encounter
--- OUTSIDE RECORDS SUMMARY | 2024-11-04 10:16 | XMS_ITS | Encounter Summary ---
Author Organization [facility] Address [address] [place] [address] [place] [address] Care Team Providers Care Label Maker Name Role Phone Shaikh BUNNY Connelly Primary Care Provider [phone] Shaikh BUNNY Connelly Primary Care Provider [phone] Jose Chandler MD Primary Care Provider [phone] Ijeoma Drake SURGICAL FIRST ASSISTANT Unavailable [phone] Unallocated, Noms Provider Primary Care Provi shayna Jose Chandler MD Primary Care Provider [phone] Za Wilkerson SURGICAL FIRST ASSISTANT Unavailable [phone] Madhuri Banda DO Unavailable [phone] Encounter Details Date Type Department Care Team (Late st Contact Info) Description 03/28/2023 Orders Only [facility] [address] [place] [address] Shaikh Conenlly MD [address] [place] [address] Social History Tobacco Use Types Packs/Day Years [...] [address] [place] [address] Elida Monroy MD [address] [place] [address] 05/03/2025 1:00 PM EDT Office Visit [facility] [address] [place] [address] Kasi Bennett MD [address], [address] [place] [address] documented as of this encounter Procedures [...] on filedocumented in this encounter Care Teams Label Maker Relationship Specialty Start Date End Date Shaikh Connelly MD PCP - General Internal Medicine 11/11/22 05/01/23 Shaikh Connelly MD [address] [place] [address] PCP - General Internal Medicine 05/02/23 09/23/23 Jose Chandler MD [address] [place] [address] PCP - General Family Medicine 09/24/23 11/25/23 Unallocated, Timur Hernandez MD [address] [place] [address] PCP - General Family Medicine 11/26/23 12/11/23 Jose Chandler MD [address] [place] [address] PCP - General Family Medicine 12/12/23 jIeoma Drake NP [address] [place] [address] Nurse Practitioner Family Medicine 09/24/23 Za Wilkerson NP [address] [place] [address] Nurse Practitioner Neurology 04/21/24 Madhuri Banda DO [address] [place] [address] Referring Physician Neurology 04/21/24 documented as of this encounter
--- OUTSIDE RECORDS SUMMARY | 2024-11-04 10:16 | XMS_ITS | Encounter Summary ---
Author Organization [facility] Address [address] [facility] [place] [address] Care Team Providers Care Automation Application Engineer Name Role Phone Shaikh BUNNY Connelly Primary Care Provider [phone] Jose Chandler MD Primary Care Provider [phone] Ijeoma Drake TUBE CUTTER OPERATOR Unavailable [phone] Unallocated, Timur Hernandez MD Primary Care Provi shayna Jose Chandler MD Primary Care Provider [phone] Za Wilkerson TUBE CUTTER OPERATOR Unavailable [phone] Madhuri Banda DO Unavailable [phone] Encounter Details Date Type Department Care [...] Dermatology [address] [place] [address] Elida Monroy MD [address] [place] [address] 05/03/2025 1:00 PM EDT Office Visit [facility] [place] [facility] [address] [place] [address] Kasi Bennett MD [address], [address] [place] [address] documented as of this encounter Procedures Procedure Name Priority Date/Time Associated Diagnosis Comments XR TIBIA FIBULA LT 2V 08/14/2023 3:27 PM EDT documented in this encounter Results * XR TIBIA FIBULA LT 2V (08/14/2023 3:27 PM EDT) Anatomical Region Laterality Modality Other 08/14/2023 3:27 PM EDT Narrative 08/14/2023 3:29 [place] [address] XRay Report Signed Patient: KARINA DE OLIVEIRA MR#: [id number] : 1965 Acct:[id number] Age/Sex: 57 / F ADM Date: 08/13/23 Loc: EC Attending Dr: Sussy Jefferson D.P.M. Ordering Physician: Sussy Jefefrson D.P.M. Date of Service: 08/13/23 Procedure(s): XR tibia fibula LT 2V Accession Number(s): [id number] cc: Shaikh Erica Connelly; Sussy Jefferson D.P.M. The [address] [address] Patient Name: KARINA DE OLIVEIRA MRN: [id number] date: 1965 Sex: F Assigned Patient Location: Current Patient Location: Accession/Order Number: [id number] Exam Date: 08/13/2023 14:05 Report Date: 08/14/2023 [...] Signed By: 08/14/23 1529 DD/ 1527 TD/TT: Multi Punch Operator: Procedure Note Radiology, Radiologist, MD - 08/14/2023 [place] [address] XRay Report Signed Patient: KARINA DE OLIVEIRA KMR#: [id number] : 1965Acct:[id number] Age/Sex: 57 / FADM Date: 08/13/23 Loc: EC Attending Dr: Sussy Jefferson D.P.M. Ordering Physician: Sussy Jefferson D.P.M. Date of Service: 08/13/23 Procedure(s): XR tibia fibula LT 2V Accession Number(s): [id number] cc: Shaikh Erica Connelly; Sussy Jefferson D.P.M. The [place] [address] Patient Name: KARINA DE OLIVEIRA MRN: [id number] date: 1965 Sex: F Assigned Patient Location: Current Patient Location: Accession/Order Number: [id number] Exam Date: 08/13/2023 14:05 Report Date: 08/14/2023 [...] M.D. Signed By:08/14/23 1529 DD/ 1527 TD/TT: Multi Punch Operator: Generic External Data Provider [facility] Final Result documented in this encounter Visit Diagnoses Not on filedocumented in this encounter Care Teams Automation Application Engineer Relationship Specialty Start Date End Date Shaikh Connelly MD [address] [place] [address] PCP - General Internal Medicine 05/02/23 09/23/23 Jose Chandler MD [address] [place] [address] PCP - General Family Medicine 09/24/23 11/25/23 Unallocated, Noms MD David [facility] [place] [address] PCP - General Family Medicine 11/26/23 12/11/23 oJse Chandler MD [address] [place] [address] PCP - General Family Medicine 12/12/23 Ijeoma Drake NP [address] [place] [address] Nurse Practitioner Family Medicine 09/24/23 Za Wilkerson NP [address] [place] [address] Nurse Practitioner Neurology 04/21/24 Madhuri Banda DO [address] [place] [address] Referring Physician Neurology 04/21/24 documented as of this encounter
--- OUTSIDE RECORDS SUMMARY | 2024-11-04 10:16 | XMS_ITS | Encounter Summary ---
Author Organization [facility] Address [address] [place] [address] Care Team Providers Care Medical Recruiter Name Role Phone Ijeoma Drake AREA SAFETY MANAGER Unavailable [phone] Jose Chandler MD Primary Care Provider [phone] Za Wilkerson AREA SAFETY MANAGER Unavailable [phone] Madhuri Banda DO Unavailable [phone] Encounter Details Date Type Department Care Team (Late st Contact Info) Description 09/21/2024 Abstract [facility] [address] [facility] [place] [address] Ameena Vera NP [address] [facility] [place] [address] Social History Tobacco Use Types Packs/Day Years [...] How often do you attend chur or yazidi services? Patient declined 10/02/2023 Do you belong to any clubs o r organizations such as lutheran groups, unions, fraternal or athletic groups, or [...] Recorded Patient Health Questionnaire-2 Score 0 10/03/2023 [facility] - Occupational Stress Questionnaire Answer Date [...] were you homeless or living in a chcf (including now)? Patient declined 10/02/2023 Comments Unknown [...] Dermatology [address] [place] [address] Elida Monroy MD [address] [place], [place] [address] 05/03/2025 1:00 PM EDT Office Visit [facility] [address] [place] [address] Kasi Bennett MD [address] [place] [address] documented as of this encounter Visit Diagnoses Not on filedocumented in this encounter Care Teams Medical Recruiter Relationship Specialty Start Date End Date Jose Chandler MD PCP - General Family Medicine 12/12/23 Ijeoma Drake NP Nurse Practitioner Family Medicine 09/24/23 Za Wilkerson NP Nurse Practitioner Neurology 04/21/24 Madhuri Banda DO [address] [place] [address] Referring Physician Neurology 04/21/24 documented as of this encounter
--- OUTSIDE RECORDS SUMMARY | 2024-11-04 10:16 | XMS_ITS | Encounter Summary ---
Author Organization [facility] Address [address] [place] [address] Care Team Providers Care Bench Technician Name Role Phone Ijeoma Drake POLICEMAN Unavailable [phone] Jose Chandler MD Primary Care Provider [phone] Za Wilkerson POLICEMAN Unavailable [phone] Madhuri Banda DO Unavailable [phone] Encounter Details Date Type Department Care Team (Late st Contact Info) Description 11/02/2024 Bamboo flowsheet [facility] [place] [facility] [address] [place] [address] Kasi Bennett MD [address] [place] [address] Social History Tobacco Use Types Packs/Day [...] any clubs o r organizations such as alevism groups, unions, fraternal or athletic groups, or [...] Recorded Patient Health Questionnaire-2 Score 0 10/03/2023 [facility] ional [facility] - Occupational Stress Questionnaire Answer Date Recorded [...] any time in the past 12 m [facility], were you homeless or living [...] Dermatology [address] [place] [address] Elida Monroy MD [address] [place] [address] 05/03/2025 1:00 PM EDT Office Visit [facility] [address] [place] [address] Kasi Bennett MD [address] [place] [address] documented as of this encounter Visit Diagnoses Not on filedocumented in this encounter Care Teams Bench Technician Relationship Specialty Start Date End Date Jose Chandler MD PCP - General Family Medicine 12/12/23 Ijeoma Drake NP Nurse Practitioner Family Medicine 09/24/23 Za Wilkerson NP Nurse Practitioner Neurology 3/11/25 Madhuri Banda DO [address] [place] [address] Referring Physician Neurology 04/21/24 documented as of this encounter
--- OUTSIDE RECORDS SUMMARY | 2024-11-04 10:16 | XMS_ITS | Encounter Summary ---
Author Organization [facility] Address [address] [facility] [place] [address] Care Team Providers Care Intellectual Property Paralegal Name Role Phone Shaikh BUNNY Connelly Primary Care Provider [phone] Shaikh BUNNY Connelly Primary Care Provider [phone] Jose Chandler MD Primary Care Provider [phone] Ijeoma Drake FILING WRITER Unavailable [phone] Unallocated, Noms Provider Primary Care Provi shayna Jose Chandler MD Primary Care Provider [phone] Za Wilkerson FILING WRITER Unavailable [phone] Madhuri Banda DO Unavailable [phone] Encounter Details Date Type Department Care [...] Office Visit [facility] [address] [place] [address] Elida Monroy MD [address] [place] [address] 05/03/2025 1:00 PM EDT Office Visit [facility] [place] [facility] [address] [place] [address] Kasi Bennett MD [address], [address] [place] [address] documented as of this encounter Procedures Procedure Name Priority Date/Time Associated Diagnosis Comments [facility] LIVER PANEL Routine 03/20/2023 9:5 8 AM [...] HOLLIS CLINISYNC Final Result Performing Organization Address City/[facility] Co de Phone Number CLINISYNV TB * (ABNORMAL) [facility] LIVER PANEL (03/20/2023 9:58 AM EST) BILIRUBIN [...] HOLLIS CLINISYNC Final Result Performing Organization Address [facility] Co de Phone Number [facility] * XR DEXA AXIAL SKELETON (03/20/2023 9:48 AM EST) Anatomical Region Laterality Modality Other 03/20/2023 9:48 AM EST Narrative 03/20/2023 9:50 [place] [address] XRay Report Signed Patient: KARINA DE OLIVEIRA MR#: [id number] : 1965 Acct:[id number] Age/Sex: 57 / F ADM Date: 03/20/23 Loc: MAMMO Attending Dr: RADHA TRIVEDI Ordering Physician: RADHA TRIVEDI Date of Service: 03/20/23 Procedure(s): XR DEXA axial skeleton Accession Number(s): [id number] cc: Shaikh Erica Connelly; RADHA TRIVEDI [address] [address] Patient Name: KARINA DE OLIVEIRA MRN: [id number] date: 1965 Sex: F Assigned Patient Location: MAMMO Current Patient Location: LAB Accession/Order Number: [id number] Exam Date: 03/20/2023 09:28 Report Date: 03/20/2023 [...] M.D. Signed By: 03/20/2350 DD/ 7 TD/TT: Form Setter: Procedure Note Radiology, Radiologist, MD - 03/20/2023 [place] [address] XRay Report Signed Patient: KARINA DE OLIVEIRA KMR#: [id number] : 1965Acct:[id number] Age/Sex: 57 / FADM Date: 03/20/23 Loc: MAMMO Attending Dr: RADHA TRIVEDI Ordering Physician: RADHA TRIVEDI Date of Service: 03/20/23 Procedure(s): XR DEXA axial skeleton Accession Number(s): [id number] cc: Shaikh Erica Connelly; RADHA TRIVEDI The [place] [id number] Patient Name: KARINA DE OLIVEIRA MRN: [id number] date: 1965 Sex: F Assigned Patient Location: MAMMO Current Patient Location: LAB Accession/Order Number: [id number] Exam Date: 03/20/2023 09:28 Report Date: 03/20/2023 [...] Ryan Goldman M.D. Signed By:03/20/2350 DD/ TD/TT: Form Setter: Generic External Data Provider [facility]AG[facility] Final Result documented in this encounter Visit Diagnoses Not on filedocumented in this encounter Care Teams Intellectual Property Paralegal Relationship Specialty Start Date End Date Shaikh Connelly MD PCP - General Internal Medicine 11/11/22 05/01/23 Shaikh Connelly MD [address] [place] [address] PCP - General Internal Medicine 05/02/23 09/23/23 Jose Chandler MD [address] [place] [address] PCP - General Family Medicine 09/24/23 11/25/23 Unallocated, Timur Hernandez MD [address] [place] [address] PCP - General Family Medicine 11/26/23 12/11/23 Jose Chandler MD [address] [place] [address] PCP - General Family Medicine 12/12/23 Ijeoma Drake NP [address] [place] [address] Nurse Practitioner Family Medicine 09/24/23 Za Wilkerson NP [address] [place] [address] Nurse Practitioner Neurology 04/21/24 Madhuri Banda DO [address] [place] [address] Referring Physician Neurology 04/21/24 documented as of this encounter
--- OUTSIDE RECORDS SUMMARY | 2024-11-04 10:16 | XMS_ITS | Encounter Summary ---
Author Organization [facility] Address [address] [place] [address] Care Team Providers Care Enamel Machine Operator Name Role Phone Shaikh BUNNY Connelly Primary Care Provider [phone] Shaikh BUNNY Connelly Primary Care Provider [phone] Jose Chandler MD Primary Care Provider [phone] Ijeoma Drake WAREHOUSE SHIPPING RECEIVING CLERK Unavailable [phone] Unallocated, Noms Provider Primary Care Provi shayna Jose Chandler MD Primary Care Provider [phone] Za Wilkerson WAREHOUSE SHIPPING RECEIVING CLERK Unavailable [phone] Madhuri Banda DO Unavailable [phone] Encounter Details Date Type Department Care Team (Late st Contact Info) Description 03/18/2023 Orders Only [facility] [address] [place] [address] Shaikh Connelly MD [address] [place] [address] Social History Tobacco Use Types Packs/Day Years [...] [address] [place] [address] Elida Monroy MD [address] [place] [address] 05/03/2025 1:00 PM EDT Office Visit [facility] [address] [place] [address] Kasi Bennett MD [address], [address] [place] [address] documented as of this encounter Procedures Procedure Name Priority Date/Time Associated Diagnosis Comments MISCELLANEOUS LAB TEST Routine 11/17/2022 3:09 PM EDT documented in this encounter Results * - Miscellaneous Test (11/17/2022 3:09 PM EDT) Shaikh Maricel [facility] LAB BLOOD ORDERABLES Final Resu lt documented in this encounter Visit Diagnoses Not on filedocumented in this encounter Care Teams Enamel Machine Operator Relationship Specialty Start Date End Date Shaikh Connelly MD PCP - General Internal Medicine 11/11/22 05/01/23 Shaikh Connelly MD [address] [place] [address] PCP - General Internal Medicine 05/02/23 09/23/23 Jose Chandler MD [address] [place] [address] PCP - General Family Medicine 09/24/23 11/25/23 Unallocated, Noms MD David [address] [place] [address] PCP - General Family Medicine 11/26/23 12/11/23 Jose Chandler MD [address] [place] [address] PCP - General Family Medicine 12/12/23 Ijeoma Drake NP [address] [place] [address] Nurse Practitioner Family Medicine 09/24/23 Za Wilkerson NP [address] [place] [address] Nurse Practitioner Neurology 04/21/24 Madhuri Banda DO [address] [place] [address] Referring Physician Neurology 04/21/24 documented as of this encounter
--- OUTSIDE RECORDS SUMMARY | 2024-11-04 10:16 | XMS_ITS | Encounter Summary ---
Author Organization [facility] Address [address] [facility] [facility] [place] [address] Care Team Providers Care Waiter/Waitress Cocktail Lounge Name Role Phone Shaikh BUNNY Connelly Primary Care Provider [phone] Jose Chandler MD Primary Care Provider [phone] Ijeoma Drake SURGICAL DEVICE SALES REPRESENTATIVE Unavailable [phone] Unallocated, Timur Hernandez MD Primary Care Provi shayna Jose Chandler MD Primary Care Provider [phone] Za Wilkerson SURGICAL DEVICE SALES REPRESENTATIVE Unavailable [phone] Madhuri Banda DO Unavailable [phone] Encounter Details Date Type Department Care [...] Dermatology [address] [place] [address] Elida Monroy MD [address] [place] [address] 05/03/2025 1:00 PM EDT Office Visit [facility] [place] [facility] [address] [place] [address] Kasi Bennett MD [address], [address] [place] [address] documented as of this encounter Procedures Procedure Name Priority Date/Time Associated Diagnosis Comments XR LUMBAR SPINE 6V W BENDING 05/22/2023 3:48 PM EDT documented in this encounter Results * XR LUMBAR SPINE 6V W BENDING (05/22/2023 3:48 PM EDT) Anatomical Region Laterality Modality Other 05/22/2023 3:48 PM EDT Narrative 05/22/2023 3:51 PM EDT The [address] [address] XRay Report Signed Patient: KARINA DE OLIVEIRA MR#: [id number] : 1965 Acct:[id number] Age/Sex: 57 / F ADM Date: 05/22/23 Loc: RAD Attending Dr: James Tijerina SURGICAL DEVICE SALES REPRESENTATIVE Ordering Physician: James Tijerina NP Date of Service: 05/22/23 Procedure(s): XR lumbar spine 6V w bending Accession Number(s): [id number] cc: Shaikh Erica Connelly; James Tijerina NP The [address] [address] Patient Name: KARINA DE OLIVEIRA MRN: [id number] date: 1965 Sex: F Assigned Patient Location: RAD Current Patient Location: RAD Accession/Order Number: [id number] Exam Date: 05/22/2023 12:18 Report Date: 05/22/2023 [...] By: Ryan Goldman M.D. Signed By: 05/22/23 1558 DD/ 1548 TD/TT: Physician Industrial: Procedure Note Radiology, Radiologist, MD - 05/22/2023 [place] [address] XRay Report Signed Patient: KARINA DE OLIVEIRA KMR#: [id number] : 1965Acct:[id number] Age/Sex: 57 / FADM Date: 05/22/23 Loc: [facility] Attending Dr: James Tijerina NP Ordering Physician: James Tijerina NP Date of Service: 05/22/23 Procedure(s): XR lumbar spine 6V w bending Accession Number(s): [id number] cc: Shaikh Erica Connelly; James Tijerina NP The [place] [address] Patient Name: KARINA DE OLIVEIRA MRN: [id number] date: 1965 Sex: F Assigned Patient Location: [facility] Current Patient Location: [facility] Accession/Order Number: [id number] Exam Date: 05/22/2023 12:18 Report Date: 05/22/2023 [...] M.D. Signed By:05/22/23 1551 DD/ 1548 TD/TT: Physician Industrial: us Generic External Data Provider [facility] Final Result documented in this encounter Visit Diagnoses Not on filedocumented in this encounter Care Teams Waiter/Waitress Cocktail Lounge Relationship Specialty Start Date End Date Shaikh Connelly MD [address] [place] [address] PCP - General Internal Medicine 05/02/23 09/23/23 Jose Chandler MD [address] [place] [address] PCP - General Family Medicine 09/24/23 11/25/23 Unallocated, Noms Provider, [facility] [place] [address] PCP - General Family Medicine 11/26/23 12/11/23 Jose Chandler MD [address] [place] [address] PCP - General Family Medicine 12/12/23 Ijeoma Drake NP [address] [place] [address] Nurse Practitioner Family Medicine 09/24/23 Za Wilkerson NP [address] [place] [address] Nurse Practitioner Neurology 04/21/24 Madhuri Banda DO [address] [place] [address] Referring Physician Neurology 04/21/24 documented as of this encounter
--- OUTSIDE RECORDS SUMMARY | 2024-11-04 10:16 | XMS_ITS | Encounter Summary ---
Author Organization [facility] Address [address] [place] [address] Care Team Providers Care Route Specialist Name Role Phone Shaikh BUNNY Connelly Primary Care Provider [phone] Jose Chandler MD Primary Care Provider [phone] Ijeoma Drake CREW CHIEF Unavailable [phone] Unallocated, Timur Provider Primary Care Provi shayna Jose Chandler MD Primary Care Provider [phone] Za Wilkerson CREW CHIEF Unavailable [phone] Madhuri Banda DO Unavailable [phone] Encounter Details Date Type Department Care Team (Late st Contact Info) Description 06/08/2023 Clinisync Result Encounter [facility] External Department Unsolicited Anahi Cuenca PA [address] [place] [address] [place], [place] [address] Social History Tobacco Use Types Packs/Day Years [...] Department Care Team (Late Contact Info) Description 04/06/2025 1:15 PM EST Office Visit [facility] [place] [facility] [address] [place] [address] Elida Monroy MD [address] [place] [address] 05/03/2025 1:00 PM EDT Office Visit [facility] [place] [facility] [address] [place] [address] Kasi Bennett MD [address], [address] [place] [address] documented as of this encounter Procedures Procedure Name Priority Date/Time Associated Diagnosis Comments CT FOOT LT WO CON 06/08/2023 6:2 9 PM EDT documented in this encounter Results * CT FOOT LT WO CON (06/08/2023 6:29 PM EDT) Anatomical Region Laterality Modality Other 06/08/2023 6:29 PM EDT Narrative 06/08/2023 6:32 PM EDT [address] [address] [address] Scan Report Signed Patient: KARINA DE OLIVEIRA MR#: [id number] : 1965 Acct:[id number] Age/Sex: 57 / F ADM Date: 06/08/23 Loc: [place] 231-[address]: Rivas Rendon M.D. Ordering Physician: Anahi Cuenca Date of Service: 06/08/23 Procedure(s): CT foot LT wo con Accession Number(s): [id number] cc: Shaikh Erica Connelly [address] [address] Patient Name: KARINA DE OLIVEIRA MRN: [id number] date: 1965 Sex: F Assigned Patient Location: ER Current Patient Location: MS Accession/Order Number: [id number] Exam Date: 06/08/2023 17:15 Report Date: 06/08/2023 [...] Signed By: 06/08/23 1832 DD/ 1829 TD/TT: Red Hat Linux Engineer: Procedure Note Radiology, Radiologist, MD - 06/08/2023 [place] [address] [place] Scan Report Signed Patient: KARINA DE OLIVEIRA KMR#: [id number] : 1965Acct:[id number] Age/Sex: 57 / FADM Date: 06/08/23 Loc: [place] 231-[address]: Rivas Rendon M.D. Ordering Physician: Anahi Cuenca Date of Service: 06/08/23 Procedure(s): CT foot LT wo con Accession Number(s): [id number] cc: Shaikh Erica Connelly [place] [id number] Patient Name: KARINA DE OLIVEIRA MRN: [id number] date: 1965 Sex: F Assigned Patient Location: ER Current Patient Location: MS Accession/Order Number: [id number] Exam Date: 06/08/2023 17:15 Report Date: 06/08/2023 [...] Muñoz M.D. Signed By:06/08/231831 DD/ 28 TD/TT: Red Hat Linux Engineer: Anahi CENTENO [facility] Final Result documented in this encounter Visit Diagnoses Not on filedocumented in this encounter Care Teams Route Specialist Relationship Specialty Start Date End Date Shaikh Connelly MD [address] [place] [address] PCP - General Internal Medicine 05/02/23 09/23/23 Jose Chandler MD [address] [place] [address] PCP - General Family Medicine 09/24/23 11/25/23 Unallocated, Timur Hernandez MD [address] [place] [address] PCP - General Family Medicine 11/26/23 12/11/23 Jose Chandler MD [address] [place] [address] PCP - General Family Medicine 12/12/23 Ijeoma Drake NP [address] [place] [address] Nurse Practitioner Family Medicine 09/24/23 Za Wilkerson NP [address] [facility] [place] [address] Nurse Practitioner Neurology 04/21/24 Madhuri Banda DO [address] [place] [address] Referring Physician Neurology 04/21/24 documented as of this encounter
--- OUTSIDE RECORDS SUMMARY | 2024-11-04 10:16 | XMS_ITS | Encounter Summary ---
Author Organization [facility] Address [address] [place] [address] Care Team Providers Care Leaf Binner Name Role Phone Shaikh BUNNY Connelly Primary Care Provider [phone] Shaikh BUNNY Connelly Primary Care Provider [phone] Jose Chandler MD Primary Care Provider [phone] Ijeoma Drake COMPUTER GAME PROGRAMMER Unavailable [phone] Unallocated, Noms Provider Primary Care Provi shayna Jose Chandler MD Primary Care Provider [phone] Za Wilkerson COMPUTER GAME PROGRAMMER Unavailable [phone] Madhuri Banda DO Unavailable [phone] Encounter Details Date Type Department Care Team (Late st Contact Info) Description 02/06/2023 Abstract [facility] [address] [place] [address] Shaikh Connelly MD [address] [place] [address] Social History Tobacco Use Types Packs/Day Years [...] [address] [place] [address] Elida Monroy MD [address] [place] [address] 05/03/2025 1:00 PM EDT Office Visit [facility] [address] [place] [address] Kasi Bennett MD [address] [place] [address] documented as of this encounter Visit Diagnoses Not on filedocumented in this encounter Care Teams Leaf Binner Relationship Specialty Start Date End Date Shaikh Connelly MD PCP - General Internal Medicine 11/11/22 05/01/23 Shaikh Connelly MD [address] [place] [address] PCP - General Internal Medicine 05/02/23 09/23/23 Jose Chandler MD [address] [place] [address] PCP - General Family Medicine 09/24/23 11/25/23 Unallocated, Timur Hernandez MD [address] [place] [address] PCP - General Family Medicine 11/26/23 12/11/23 Jose Chandler MD [address] [place] [address] PCP - General Family Medicine 12/12/23 Ijeoma Drake NP [address] [place] [address] Nurse Practitioner Family Medicine 09/24/23 Za Wilkerson NP [address] [place] [address] Nurse Practitioner Neurology 04/21/24 Madhuri Banda DO [address] [place] [address] Referring Physician Neurology 04/21/24 documented as of this encounter
--- OUTSIDE RECORDS SUMMARY | 2024-11-04 10:16 | XMS_ITS | Encounter Summary ---
Author Organization [facility] Address [address] [place] [address] [place] [address] Care Team Providers Care Test Engine Operator Name Role Phone Shaikh BUNNY Connelly Primary Care Provider [phone] Shaikh BUNNY Connelly Primary Care Provider [phone] Jose Chandler MD Primary Care Provider [phone] Ijeoma Drake JUKEBOX OPERATOR Unavailable [phone] Unallocated, Timur Provider Primary Care Provi shayna Jose Chandler MD Primary Care Provider [phone] Za Wilkerson JUKEBOX OPERATOR Unavailable [phone] Madhuri Banda DO Unavailable [phone] Reason for Visit * Reason Comments Med Refill Encounter Details Date Type Department Care Team (Late st Contact Info) Description 03/05/2023 Refill [facility] [address] [place] [address] Shaikh Connelly MD [address] [place] [address] Gout, unspecified cause, unspecified chronicity, [...] Dermatology [address] [place] [address] Elida Monroy MD [address] [place], [place] [address] 05/03/2025 1:00 PM EDT Office Visit [facility] [address] [place] [address] Kasi Bennett MD [address] [place] [address] documented as of this encounter Visit Diagnoses Diagnosis Gout, unspecified cause, unspecified chronicity, unspecified site- Primary documented in this encounter Care Teams Test Engine Operator Relationship Specialty Start Date End Date Shaikh Connelly MD PCP - General Internal Medicine 11/11/22 05/01/23 Shaikh Connelly MD [address] [place] [address] PCP - General Internal Medicine 05/02/23 09/23/23 Jose Chandler MD [address] [place] [address] PCP - General Family Medicine 09/24/23 11/25/23 Unallocated, Timur Hernandez MD [address] [place] [address] PCP - General Family Medicine 11/26/23 12/11/23 Jose Chandler MD [address] [place] [address] PCP - General Family Medicine 12/12/23 Ijeoma Drake NP [address] [place] [address] Nurse Practitioner Family Medicine 09/24/23 Za Wilkerson NP [address] [place] [address] Nurse Practitioner Neurology 04/21/24 Madhuri Banda DO [address] [place] [address] Referring Physician Neurology 04/21/24 documented as of this encounter
--- OUTSIDE RECORDS SUMMARY | 2024-11-04 10:16 | XMS_ITS | Encounter Summary ---
Author Organization [facility] Address [address] [place] [address] Care Team Providers Care Pathology Laboratory Director Name Role Phone Ijeoma Drake TECHNICAL SOLUTION ARCHITECT Unavailable [phone] Jose Chandler MD Primary Care Provider [phone] Za Wilkerson TECHNICAL SOLUTION ARCHITECT Unavailable [phone] Madhuri Banda DO Unavailable [phone] Encounter Details Date Type Department Care Team (Late st Contact Info) Description 09/21/2024 Abstract [facility] [address] [facility] [place] [address] Ameena Vera NP [address] [place] [address] Social History Tobacco Use Types Packs/Day Years [...] How often do you attend chur or islam services? Patient declined 10/02/2023 Do you belong to any clubs o r organizations such as mosque groups, unions, fraternal or athletic groups, or [...] Recorded Patient Health Questionnaire-2 Score 0 10/03/2023 [facility] - Occupational Stress Questionnaire Answer Date [...] any time in the past 12 m [facility], were you homeless or living in [...] Dermatology [address] [place] [address] Elida Monroy MD [address] [place], [place] [address] 05/03/2025 1:00 PM EDT Office Visit [facility] [facility] [address] [place] [address] Kasi Bennett MD [address] [place] [address] documented as of this encounter Visit Diagnoses Not on filedocumented in this encounter Care Teams Pathology Laboratory Director Relationship Specialty Start Date End Date Jose Chandler MD PCP - General Family Medicine 12/12/23 Ijeoma Drake NP Nurse Practitioner Family Medicine 09/24/23 Za Wilkerson NP Nurse Practitioner Neurology 04/21/24 Madhuri Banda DO [address] [place] [address] Referring Physician Neurology 04/21/24 documented as of this encounter
--- OUTSIDE RECORDS SUMMARY | 2024-11-04 10:16 | XMS_ITS | Encounter Summary ---
Author Organization [facility] Address [address] [place] [address] Care Team Providers Care Waist Cutter Name Role Phone Ijeoma Drake RELIGIOUS HEALER Unavailable [phone] Jose Chandler MD Primary Care Provider [phone] Za Wilkerson RELIGIOUS HEALER Unavailable [phone] Madhuri Banda DO Unavailable [phone] Encounter Details Date Type Department Care Team (Late st Contact Info) Description 09/22/2024 Abstract [facility] [address] [facility] [place] [address] Ameena Vera NP [address] [facility] [place] [address] Social History Tobacco Use Types Packs/Day Years [...] How often do you attend chur or jehovah's witness services? Patient declined 10/02/2023 Do you belong [...] Questionnaire-2 Score 0 10/03/2023 [facility] - Occupational Stress Questionnaire Answer Date [...] any time in the past 12 m [facility], were you homeless or living [...] Dermatology [address] [place] [address] Elida Monroy MD [address] [place], [place] [address] 05/03/2025 1:00 PM EDT Office Visit [facility] [address] [place] [address] Kasi Bennett MD [address] [place] [address] documented as of this encounter Visit Diagnoses Not on filedocumented in this encounter Care Teams Waist Cutter Relationship Specialty Start Date End Date Jose Chandler MD PCP - General Family Medicine 12/12/23 Ijeoma Drake NP Nurse Practitioner Family Medicine 09/24/23 Za Wilkerson NP Nurse Practitioner Neurology 04/21/24 Madhuri Banda DO [address] [place] [address] Referring Physician Neurology 04/21/24 documented as of this encounter
--- OUTSIDE RECORDS SUMMARY | 2024-11-04 10:16 | XMS_ITS | Encounter Summary ---
Author Organization [facility] Address [address] [place] [place] [address] Care Team Providers Care Motor Racer Name Role Phone Shaikh BUNNY Connelly Primary Care Provider [phone] Jose Chandler MD Primary Care Provider [phone] Ijeoma Drake WORK CAR OPERATOR Unavailable [phone] Unallocated, Timur Provider Primary Care Provi shayna Jose Chandler MD Primary Care Provider [phone] Za Wilkerson WORK CAR OPERATOR Unavailable [phone] Madhuri Banda DO Unavailable [phone] Encounter Details Date Type Department Care Team (Late st Contact Info) Description 06/08/2023 Clinisync Result Encounter [facility] External Department Unsolicited Anahi Soriano PA [address] [place] [address] [place], [place] [address] Social History Tobacco Use Types Packs/Day Years [...] [address] [place] [address] lEida Monroy MD [address] [place] [address] 05/03/2025 1:00 PM EDT Office Visit [facility] [place] [facility] [address] [place] [address] Kasi Bennett MD [address] [place] [address] documented as of this encounter Procedures Procedure Name Priority Date/Time Associated Diagnosis Comments ECG 12-LEAD 06/08/2023 3:37 PM EDT documented in this encounter Results * ECG 12-LEAD (06/08/2023 3:37 PM EDT) Anatomical Region Laterality Modality Other 06/08/2023 3:37 PM EDT Narrative 06/09/2023 7:12 AM EDT The [address] [address] Electrocardiograph Report Signed Patient: KARINA DE OLIVEIRA MR#: [id number] : 1965 Acct:[id number] Age/Sex: 57 / F ADM Date: 06/08/23 Loc: MS 231-[address]: Virginia Rendon M.D. Ordering Physician: Anahi Soriano Date of Service: 06/08/23 Procedure(s): ECG 12 lead Accession Number(s): [id number] cc: The [facility] Test Date: 2023-06-08 Pat Name: KARINA DE OLIVEIRA Department: Room: - Gender: Female Filling Machine Tender: : 1965 Requested By: SHAIKH ELY Order Number: [id number] Reading MD: VIRGINIA RENDON Measurements Intervals Aromas Rate: 100 P: 69 CT: 170 QRS: 266 QRSD: 80 T: 58 [...] M.D. Signed By: 06/09/23711 DD/ 1537 TD/TT: Checking Clerk: Procedure Note Radiology, Radiologist, MD - 06/09/2023 [place] [address] Electrocardiograph Report Signed Patient: KARINA DE OLIVEIRA KMR#: [id number] : 1965Acct:[id number] Age/Sex: 57 / FADM Date: 06/08/23 Loc: MS 231-[address]: Virginia Rendon M.D. Ordering Physician: Anahi Soriano Date of Service: 06/08/23 Procedure(s): ECG 12 lead Accession Number(s): [id number] cc: The [facility] Test Date: 2023-06-08 Pat Name: KARINA DE OLIVEIRA Department: Room: - Gender: Female Filling Machine Tender: : 1965 Requested By: SHAIKH ELY Order Number: [id number] Reading MD: VIRGINIA RENDON Measurements Intervals Aromas Rate: 100 P: 69 CT: 170 QRS: 266 QRSD: 80 T: 58 [...] RENDON Dictated By: Virginia Rendon M.D. Signed By:06/09/23711 DD/ 1537 TD/TT: Checking Clerk: Anahi [facility] Final Result documented in this encounter Visit Diagnoses Not on filedocumented in this encounter Care Teams Motor Racer Relationship Specialty Start Date End Date Shaikh Connelly MD [address] [place] [address] PCP - General Internal Medicine 05/02/23 09/23/23 Jose Chandler MD [address] [place] [address] PCP - General Family Medicine 09/24/23 11/25/23 Unallocated, Noms MD [address] [place] [address] PCP - General Family Medicine 11/26/23 12/11/23 Jose Chandler MD [address] [place] [address] PCP - General Family Medicine 12/12/23 Ijeoma Drake NP [address] [place] [address] Nurse Practitioner Family Medicine 09/24/23 Za Wilkerson NP [address] [place] [address] Nurse Practitioner Neurology 04/21/24 Madhuri Banda DO [address] [place] [address] Referring Physician Neurology 04/21/24 documented as of this encounter
--- OUTSIDE RECORDS SUMMARY | 2024-11-04 10:16 | XMS_ITS | Encounter Summary ---
Author Organization [facility] Address [address] [place] [address] Care Team Providers Care Assistant Food Service Director Name Role Phone Shaikh BUNNY Connelly Primary Care Provider [phone] Jose Chandler MD Primary Care Provider [phone] Ijeoma Drake VICE PRESIDENT PLANNING Unavailable [phone] Unallocated, Timur Hernandez MD Primary Care Provi shayna Jose Chandler MD Primary Care Provider [phone] Za Wilkerson VICE PRESIDENT PLANNING Unavailable [phone] Madhuri Banda DO Unavailable [phone] Encounter Details Date Type Department Care Team (Late st Contact Info) Description 06/11/2023 Orders Only [facility] [address] [place] [address] Shaikh Connelly MD [address] [place] [address] Social History Tobacco Use Types [...] [address] [place] [address] Elida Monroy MD [address] [place] [address] 05/03/2025 1:00 PM EDT Office Visit [facility] [address] [place] [address] Kasi Bennett MD [address] [place] [address] documented as of this encounter Procedures [...] on filedocumented in this encounter Care Teams Assistant Food Service Director Relationship Specialty Start Date End Date Shaikh Connelly MD [address] [place] [address] PCP - General Internal Medicine 05/02/23 09/23/23 Jose Chandler MD [address] [place] [address] PCP - General Family Medicine 09/24/23 11/25/23 Unallocated, [place] [address] PCP - General Family Medicine 11/26/23 12/11/23 Jose Chandler MD [address] [place] [address] PCP - General Family Medicine 12/12/23 Ijeoma Drake NP [address] [place] [address] Nurse Practitioner Family Medicine 09/24/23 Za Wilkerson NP [address] [place] [address] Nurse Practitioner Neurology 04/21/24 Madhuri Banda DO [address] [place] [address] Referring Physician Neurology 04/21/24 documented as of this encounter
--- OUTSIDE RECORDS SUMMARY | 2024-11-04 10:16 | XMS_ITS | Encounter Summary ---
Author Organization [facility] Address [address] [place] [address] Care Team Providers Care Lactation Nurse Name Role Phone Shaikh BUNNY Connelly Primary Care Provider [phone] Shaikh BUNNY Connelly Primary Care Provider [phone] Jose Chandler MD Primary Care Provider [phone] Ijeoma Drake SEAMLESS TUBE ROLLER Unavailable [phone] Unallocated, Noms Provider Primary Care Provi shayna Jose Chandler MD Primary Care Provider [phone] Za Wilkerson SEAMLESS TUBE ROLLER Unavailable [phone] Madhuri Banda DO Unavailable [phone] Encounter Details Date Type Department Care [...] Office Visit [facility] [address] [place] [address] Elida Monroy MD [address] [place] [address] 05/03/2025 1:00 PM EDT Office Visit [facility] [place] [facility] [address] [place] [address] Kasi Bennett MD [address] [place] [address] documented as of this encounter Procedures Procedure Name Priority Date/Time Associated Diagnosis Comments XR HAND 3+ VIEWS LEFT 01/12/2023 5:22 AM EST documented in this encounter Results * XR hand 3+ views left (01/12/2023 5:22 AM EST) Anatomical Region Laterality Modality Upper Extremities, Hand Left Radiogra phic Imaging 01/12/2023 5:22 AM EST Narrative 01/12/2023 5:22 AM EST [place] [id number] XRay Report Signed Patient: KARINA WEIR MR#: [id number] : 1965 Acct:[id number] Age/Sex: 57 / F ADM Date: 01/10/23 Loc: PM Attending Dr: James Blanco NP Ordering Physician: James Blanco NP Date of Service: 01/10/23 Procedure(s): XR hand LT min 3V Accession Number(s): [id number] cc: Shaikh Erica Connelly; James Blanco NP [address] [address] Patient Name: KARINA WEIR MRN: [id number] date: 1965 Sex: F Assigned Patient Location: PM Current Patient Location: Accession/Order Number: [id number] Exam Date: 01/10/2023 12:18 Report Date: 01/12/2023 [...] M.D. Signed By: 01/12/23524 DD/ 1 TD/TT: Tail Board Worker: Procedure Note Radiology, Radiologist, MD - 01/14/2023 [place] [address] XRay Report Signed Patient: KARINA WEIR KMR#: [id number] : 1965Acct:[id number] Age/Sex: 57 / FADM Date: 01/10/23 Loc: PM Attending Dr: James Blanco NP Ordering Physician: James Blanco NP Date of Service: 01/10/23 Procedure(s): XR hand LT min 3V Accession Number(s): [id number] cc: Shaikh Erica Connelly; James Blanco NP The [place] [id number] Patient Name: KARINA WEIR MRN: [id number] date: 1965 Sex: F Assigned Patient Location: PM Current Patient Location: Accession/Order Number: [id number] Exam Date: 01/10/2023 12:18 Report Date: 01/12/2023 [...] NAVID CORTES Date: 01/12/2023 05:22 Dictated By: Navdi Cortes M.D. Signed By:01/12/23524 DD/ 1 TD/TT: Tail Board Worker: Generic External Data Provider IMG XR PROCEDURES Final Result documented in this encounter Visit Diagnoses Not on filedocumented in this encounter Care Teams Lactation Nurse Relationship Specialty Start Date End Date Shaikh Connelly MD PCP - General Internal Medicine 11/11/22 05/01/23 Shaikh Connelly MD [address] [place] [address] PCP - General Internal Medicine 05/02/23 09/23/23 Jose Chandler MD [address] [place] [address] PCP - General Family Medicine 09/24/23 11/25/23 Unallocated, Noms MD David [address] [facility] [place] [address] PCP - General Family Medicine 11/26/23 12/11/23 Jose Chandler MD [address] [place] [address] PCP - General Family Medicine 12/12/23 Ijeoma Drake NP [address] [place] [address] Nurse Practitioner Family Medicine 09/24/23 Za Wilkerson NP [address] [place] [address] Nurse Practitioner Neurology 04/21/24 Madhuri Banda DO [address] [place] [address] Referring Physician Neurology 04/21/24 documented as of this encounter
--- OUTSIDE RECORDS SUMMARY | 2024-11-04 10:16 | XMS_ITS | Encounter Summary ---
Author Organization [facility] Address [address] [place] [place] [address] Care Team Providers Care Hogshead Hand Name Role Phone Shaikh BUNNY Connelly Primary Care Provider [phone] Jose Chandler MD Primary Care Provider [phone] Ijeoma Drake GUILLOTINE TRIMMER Unavailable [phone] Unallocated, Timur Hernandez MD Primary Care Provi shayna Jose Chandler MD Primary Care Provider [phone] Za Wilkerson GUILLOTINE TRIMMER Unavailable [phone] Madhuri Banda DO Unavailable [phone] Encounter Details Date Type Department Care Team ([facility] st Contact Info) Description 06/10/2023 Orders Only [facility] [address] [facility] [address] [place] [address] Rivas Rendon MD [address] [facility] [place] [address] Social History Tobacco Use Types Packs/Day Years [...] [address] [place] [address] Elida Monroy MD [address] [place] [address] 05/03/2025 1:00 PM EDT Office Visit [facility] [address] [place] [address] Kasi Bennett MD [address] [place] [address] documented as of this encounter Procedures [...] Extremities, Lower Leg Left Rad iographic Imaging Anahi CENTENO IMG XR PROCEDURES Final Result [...] on filedocumented in this encounter Care Teams Hogshead Hand Relationship Specialty Start Date End Date Shaikh Connelly MD [address] [place] [address] PCP - General Internal Medicine 05/02/23 09/23/23 Jose Chandler MD [address] [place] [address] PCP - General Family Medicine 09/24/23 11/25/23 Unallocated, Timur Hernandez MD [address] [facility] [place] [address] PCP - General Family Medicine 11/26/23 12/11/23 Jose Chandler MD [address] [place] [address] PCP - General Family Medicine 12/12/23 Ijeoma Drake NP [address] [place] [address] Nurse Practitioner Family Medicine 09/24/23 Za Wilkerson NP [address] [place] [address] Nurse Practitioner Neurology 04/21/24 Madhuri Banda DO [address] [place] [address] Referring Physician Neurology 04/21/24 documented as of this encounter
--- OUTSIDE RECORDS SUMMARY | 2024-11-04 10:16 | XMS_ITS | Encounter Summary ---
Author Organization [facility] Address [address] [place] [address] Care Team Providers Care Facilities Maintenance Technician Name Role Phone Shaikh BUNNY Connelly Primary Care Provider [phone] Jose Chandler MD Primary Care Provider [phone] Ijeoma Drake SAILMAKER Unavailable [phone] Unallocated, Timur Hernandez MD Primary Care Provi shayna Jose Chandler MD Primary Care Provider [phone] Za Wilkerson SAILMAKER Unavailable [phone] Madhuri Banda DO Unavailable [phone] Encounter Details Date Type Department Care [...] Dermatology [address] [place] [address] Elida Monroy MD [address] [place] [address] 05/03/2025 1:00 PM EDT Office Visit [facility] [place] [facility] [address] [place] [address] Kasi Bennett MD [address] [place] [address] documented as of this encounter Procedures Procedure Name Priority Date/Time Associated Diagnosis Comments MR LUMBAR SPINE WO CON 06/06/2023 4:49 PM EDT documented in this encounter Results * MR LUMBAR SPINE WO CON (06/06/2023 4:49 PM EDT) Anatomical Region Laterality Modality Other 06/06/2023 4:49 PM EDT Narrative 06/06/2023 4:51 PM EDT The [place] [id number] Magnetic Resonance Report Signed Patient: KARINA DE OLIVEIRA MR#: [id number] : 1965 Acct:[id number] Age/Sex: 57 / F ADM Date: 06/06/23 Loc: MRI Attending Dr: James Tijerina NP Ordering Physician: James Tijerina NP Date of Service: 06/06/23 Procedure(s): MR lumbar spine wo con Accession Number(s): [id number] cc: Shaikh Erica Connelly; James Tijerina NP The [address] [address] Patient Name: KARINA DE OLIVEIRA MRN: [id number] date: 1965 Sex: F Assigned Patient Location: MRI Current Patient Location: MRI Accession/Order Number: [id number] Exam Date: 06/06/2023 12:30 Report Date: 06/06/2023 [...] Signed By: 06/06/23 1651 DD/ 1649 TD/TT: Relations Manager: Procedure Note Radiology, Radiologist, - 06/06/2023 [place] [address] Magnetic Resonance Report Signed Patient: KARINA DE OLIVEIRA KMR#: [id number] : 1965Acct:[id number] Age/Sex: 57 / FADM Date: 06/06/23 Loc: MRI Attending Dr: James Tijerina NP Ordering Physician: James Tijerina NP Date of Service: 06/06/23 Procedure(s): MR lumbar spine wo con Accession Number(s): [id number] cc: Shaikh Erica Connelly; James Tijerina NP The [place] [address] Patient Name: KARINA DE OLIVEIRA MRN: [id number] date: 1965 Sex: F Assigned Patient Location: MRI Current Patient Location: MRI Accession/Order Number: [id number] Exam Date: 06/06/2023 12:30 Report Date: 06/06/2023 [...] Ruperto Fritz M.D. Signed By:06/06/231650 DD/ TD/TT: Relations Manager: Generic External Data Provider [facility] Final Result documented in this encounter Visit Diagnoses Not on filedocumented in this encounter Care Teams Facilities Maintenance Technician Relationship Specialty Start Date End Date Shaikh Connelly MD [address] [place] [address] PCP - General Internal Medicine 05/02/23 09/23/23 Jose Chandler MD [address] [place] [address] PCP - General Family Medicine 09/24/23 11/25/23 Unallocated, Timur Hernandez MD [address] [place] [address] PCP - General Family Medicine 11/26/23 12/11/23 Jose Chandler MD [address] [place] [address] PCP - General Family Medicine 12/12/23 Ijeoma Drake NP [address] [place] [address] Nurse Practitioner Family Medicine 09/24/23 Za Wilkerson NP [address] [place] [address] Nurse Practitioner Neurology 04/21/24 Madhuri Banda DO [address] [place] [address] Referring Physician Neurology 04/21/24 documented as of this encounter
--- OUTSIDE RECORDS SUMMARY | 2024-11-04 10:16 | XMS_ITS | Encounter Summary ---
Author Organization [facility] Address [address] [place] [address] Care Team Providers Care Efficiency Miner Name Role Phone Ijeoma Drake SOLARIS ADMINISTRATOR Unavailable [phone] Jose Chandler MD Primary Care Provider [phone] Za Wilkerson SOLARIS ADMINISTRATOR Unavailable [phone] Madhuri Banda DO Unavailable [phone] Encounter Details Date Type Department Care Team (Late st Contact Info) Description 09/21/2024 Orders Only [facility] [address] [place] [address] Aramis Live MD [address] [place] [address] Social History Tobacco Use Types Packs/Day [...] often do you attend chur ch or mandaeism services? Patient declined 10/02/2023 Do you belong [...] Health Questionnaire-2 Score 0 10/03/2023 [facility] - Occupational Stress [...] any time in the past 12 [facility], were you homeless or living in a [...] Dermatology [address] [place] [address] Elida Monroy MD [address] [place] [address] 05/03/2025 1:00 PM EDT Office Visit [facility] [address] [place] [address] Kasi Bennett MD [address] [place] [address] documented as of this encounter [...] on filedocumented in this encounter Care Teams Efficiency Miner Relationship Specialty Start Date End Date Jose Chandler MD PCP - General Family Medicine 12/12/23 Ijeoma Drake NP Nurse Practitioner Family Medicine 09/24/23 Za Wilkerson NP Nurse Practitioner Neurology 04/21/24 Madhuri Banda DO [address] [place] [address] Referring Physician Neurology 04/21/24 documented as of this encounter
--- OUTSIDE RECORDS SUMMARY | 2024-11-04 10:16 | XMS_ITS | Clinical Summary ---
Author Organization [facility] Address [address], [address] [place] [address] Care Team Providers Care Automatic Maintainer Name Role Phone House Sr., Jonathan INGRAM [...] MORNING 06/05/2021 Active Lancets (ONETOUCH DELICA PLUS [id number]) [facility] USE TO TEST BLOOD SUGAR TWICE DAILY [...] = 0.6 oz pur e alcohol) occasional [employer] Utilities Answer Date Recorded In the past 12 months has e [employer], [employer], oil, or water No [employer] threatened to shut off services in your [...] living in a senior living (including now)? No 02/26/2024 Food Insecurity Answer [...] Description 03/03/2025 10:15 AM EST Office Visit [facility] Part of [address] [place] [address] Nikkie Barclay, MANAGER LAN - [address] [place] [address] Return in about 1 year [...] BILATERAL Routine 03/20/2023 Screening mammogram, encounter for WATER ENGINEER CYTOLOGY Routine 08/30/2021 10:13 AM EDT from Last 3 Months or Most Recently Relevant to Health Maintenance Results * TOO BRANDON DIGITAL SCREEN BILATERAL (03/20/2023) Anatomical Region Laterality Modality Breast Bilateral Mammography Nikkie Barclay APRN - CNE[facility]ardo IMG MAMMOGRAPHY ORDERABLES Final Result * WATER ENGINEER Cytology (08/30/2021 10:13 AM EDT) Cytology Report INTERPRETATION Vaginal material, (ThinPrep vial, Imaging-assisted review): Specimen Adequacy: Satisfactory for evaluation. Descriptive Diagnosis: Negative for intraepithelial lesion or malignancy. Commercial Lending Assistant: CLARK Delacruz(ASCP) Electronically Signed Out 09/07/2021 Source: A: Vaginal material, (ThinPrep vial, Imaging-assisted review) Clinical History Hysterectomy Surgery: Salpingostomy; Ovary removal Z12.4 Encounter for screening for malignant neoplasm of cervix GYNECOLOGIC CYTOLOGY REPORT Patient Name: BRIAN WEIR Med Rec: [id number] Path Number: [id number] [facility] [employer] CONS[facility] PATHOLOGISTS [facility] [address] [place] [address] [facility] 08/30/2021 10:1 3 AM EDT 08/31/2021 10:13 AM EDT Nikkie Barclay APRN - CNEverardo PATHOLOGY/CYTOLO GY ORDERABLES Final Result [facility] [address] [place] [address], [facility] [phone] [phone] from Last 3 Months or Most Recently Relevant to Health Maintenance Insurance [employer] Care Teams Automatic Maintainer Relationship Specialty Start Date End Date Jonathan Bean Sr[address] [place] [address] PCP - General Family Medicine 08/30/21
--- OUTSIDE RECORDS SUMMARY | 2024-11-04 10:16 | XMS_ITS | Encounter Summary ---
Author Organization [facility] Address [address] [place] [address] Care Team Providers Care Therapy Director Name Role Phone Shaikh BUNNY Connelly Primary Care Provider [phone] Shaikh BUNNY Connelly Primary Care Provider [phone] Jose Chandler MD Primary Care Provider [phone] Ijeoma Drake PROCUREMENT SPECIALIST Unavailable [phone] Unallocated, Guillermos Provider Primary Care Provi shayna Jose Chandler MD Primary Care Provider [phone] Za Wilkerson PROCUREMENT SPECIALIST Unavailable [phone] Madhuri Banda DO Unavailable [phone] Encounter Details Date Type Department Care Team (Late st Contact Info) Description 03/05/2023 Abstract [facility] [address] [place] [address] Shaikh Connelly MD [address] [place] [address] Social History Tobacco Use Types Packs/Day Years [...] [address] [place] [address] Elida Monroy MD [address] [place] [address] 05/03/2025 1:00 PM EDT Office Visit [facility] [address] [place] [address] Kasi Bennett MD [address] [place] [address] documented as of this encounter Visit Diagnoses Not on filedocumented in this encounter Care Teams Therapy Director Relationship Specialty Start Date End Date Shaikh Connelly MD PCP - General Internal Medicine 11/11/22 05/01/23 Shaikh Connelly MD [address] [place] [address] PCP - General Internal Medicine 05/02/23 09/23/23 Jose Chandler MD [address] [place] [address] PCP - General Family Medicine 09/24/23 11/25/23 Unallocated, Timur Hernandez MD [address] [place] [address] PCP - General Family Medicine 11/26/23 12/11/23 Jose Chandler MD [address] [place] [address] PCP - General Family Medicine 12/12/23 Ijeoma Draek NP [address] [place] [address] Nurse Practitioner Family Medicine 09/24/23 Za Wilkerson NP [address] [facility] [place] [address] Nurse Practitioner Neurology 04/21/24 Madhuri Banda DO [address] [place] [address] Referring Physician Neurology 04/21/24 documented as of this encounter
--- OUTSIDE RECORDS SUMMARY | 2024-11-04 10:20 | XMS_ITS | CCD ---
Author Organization [facility] Care Team Providers Care Oncology Account Specialist Name Role Phone House DO, Sr Jonathan [...] Unavailable HOUSE, DR BASURTO Primary Care Unavailable EUREKA, DR RYAN Guzman Consulting Unavailable HOUSE, DR [...] Consulting Unavailable Elle Hendricks Unavailable Maricel HOLLIS, [facility] Primary Care Provider [phone] Vidal EMBEDDED LINUX DEVELOPER, Sonam Unavailable Ramesh HOLLIS, Jose Primary Care Provider Jose Chandler MD Primary Care Provider Vidal EMBEDDED LINUX DEVELOPER, Sonam Unavailable [phone] Rock HIGGINS, Za Unavailable Sivan Banda DO Unavailable Lui Banks II Attending UnavailLui Alvarado II Admitting Unavailcurtis e NON STAFF Primary Care Unavailable NON STAFF Primary Care Provider UnavailLui Alvarado MD Attending Provider [phone] Rock HIGGINS, Za Unavailable Ameena Vera Primary Care Provider Ameena Vera Attending Provider Keo HOLLIS, Tanya Esposito Attending Unavailable Keo HOLLIS, Tanya Esposito Attending Unavailable Jose Chandler MD Primary Care Provider Rock EMBEDDED LINUX DEVELOPER, Za Unavailable SONAM DRAKE Attending SONAM Justin Attending UnavailALICIA Reese Attending Unavailable ZA WILKERSON Attending Unavailable AMEENA VERA Attending Unavailable KASI BENNETT Attending Unavailable AMEENA VERA Referring Unavailable AMEENA VERA Attending Unavailable KASI BENNETT Attending Unavailable SONAM DRAKE Attending SIVAN Hinkle Attending Unavailable SONAM DRAKE Referring Unavailcurtis stokes [...] for muscle spasms 90 tablet 1 09/29/2024 Active take 1 tablet by alonso th [...] 30 tablet 11/04/2023 12/18/2023 Discontinued Continuous Glucose Manager Of Merchandising (Dexcom G7 Manager Of Merchandising) device (20 sources) Start: 03-03-2024 Continuous Glu cose Manager Of Merchandising (Dexcom G7 Manager Of Merchandising) device Indications: Type 2 diabetes mellitus with diabetic microalbuminuria, without long-term current use of insulin ([facility]) 1 each continuously 1 each 03/03/2024 Active Start: 03-03-2024 Continuous Glu cose Manager Of Merchandising (Dexcom G7 Manager Of Merchandising) device Indications: Type 2 diabetes mellitus with diabetic microalbuminuria, without long-term current use of insulin ([facility]) 1 each continuously 1 each 03/03/2024 Active Continuous Glucose Sensor (Dexcom G7 Sensor) misc (20 sources) Start: 08-05-2024 End: 09-04-2024 Continuous Glucose Sensor (D excom G7 Sensor) [facility] Indications: Type 2 diabetes mellitus with diabetic microalbuminuria, without long-term current use of insulin ([facility]) 1 each continuously 3 each 08/05/2024 09/04/2024 Active Start: 03-30-2024 End: 08-05-2024 Continuous Glucose Sensor (D excom G7 Sensor) [facility] Indications: Type 2 diabetes mellitus with diabetic microalbuminuria, without long-term current use of insulin (HCC) 1 each continuously 3 each 11 03/30/2024 08/05/2024 Discontinued (Reorder) Start: 03-30-2024 Continuous Glu cose Sensor (Dexcom G7 Sensor) [facility] Indications: Type 2 diabetes mellitus with diabetic microalbuminuria, without long-term current use of insulin (HCC) 1 each continuously 3 each 03/30/2024 Active Start: 03-30-2024 Continuous Glu cose Sensor (Dexcom G7 Sensor) [facility] Indications: Type 2 diabetes mellitus with diabetic microalbuminuria, without long-term current use of insulin (CMS/HCC) 1 each continuously 3 each 03/30/2024 Active Start: 03-03-2024 End: 03-30-2024 Continuous Glucose Sensor (D excom G7 Sensor) [facility] Indications: Type 2 diabetes mellitus with diabetic microalbuminuria, without long-term current use of insulin (CMS/HCC) 1 each continuously 3 each 11 03/03/2024 03/30/2024 Discontinued (Reorder) Start: 03-03-2024 Continuous Glu cose Sensor (Dexcom G7 Sensor) [facility] Indications: Type 2 diabetes mellitus with diabetic microalbuminuria, without long-term current use of insulin (CMS/HCC) 1 each continuously 3 each 03/03/2024 Active [...] tablet (20 sources) Histamine-2 Receptor Antagonist Start: 08-20-2024 End: 11-18-2024 take 1 tablet by mouth in the morning famotidine (Pepcid) 20 MG tablet Indications: Gastroesophageal reflux disease without esophagitis Take 1 tablet (20 mg) by mouth in the morning and 1 tablet (20 mg) before bedtime. 180 tablet 1 08/20/2024 11/18/2024 Active Start: 05-19-2024 End: 11-18-2024 take 1 tablet [...] tablet (20 sources) Biguanide Start: 08-07-2021 metFORMIN (GLU COPHAGE) 500 MG [...] 0 Active methocarbamol 750 mg oral tablet (4 sources) [...] 2024 11:58am Complies with drug therapy Start: 09-24-2024 End: 10-19-2024 take 1 capsule by mouth in the [...] mg) before bedtime. 90 capsule 2 09/24/2024 Active Start: 09-05-2023 End: 10-24-2024 take 1 capsule [...] End: 5 take 1 tablet by mouth in the [...] 12, 2017 1:00am October 19, 2024 7:54am Khsbbpeuuvrh-Mr-W pablo-Minerals (Multiple Vitamin, Womens) Tablet (3 sources) Start: 01-12-2017 End: 01-15-2017 Lmialziusdoy-Nn-U pablo-Minerals (Multiple Vitamin, Womens) Tablet Discontinued PO [...] 1 (one) time per week 2 each 03/30/2024 05/19/2024 Discontinued (Therapy completed) semaglutide (Ozempic, [...] Translations: [Primary insomnia] 12-31-2023 Chronic Nutritional deficiencies (4 sources) Vitamin D deficiency; Translations: [Vitamin D [...] due to excess calories] 10-19-2024 Chronic Other nutritional; endocrine; and metabolic disorders (2 sources) Hypomagnesemia; Translations: [Hypomagnesemia] 11-02-2024 Chronic Other screening for suspected conditions (not [...] Interpretation and review of laboratory results Abnormal [facility] Laboratory - Hematology and Cell countson 08-20-2024 HbA1c (Bld) [Mass fraction] 6.4 % [facility] ALL BASIC METABOLIC PANELon 07-09-2024 Anion gap [Moles/Vol] 11.6 mmol/L [facility] Calcium [Mass/Vol] 9.3 mg/dL 8.5 - 10. 1 mg/dL [facility] Chloride [Moles/Vol] 103 mmol/L 98 - 10 7 mmol/L [facility] CO2 [Moles/Vol] 33 mmol/L High 21.0 - 32.0 mmol/L [facility] Creatinine [Mass/Vol] 0.86 mg/dL 0.55 - 1.02 mg/dL [facility] GFR/1.73 sq M.predicted CKD-EPI (S/P/Bld) [Vol rate/Area] >60 >=60 mL/min/1.73m 2 [facility] Glucose [Mass/Vol] 107 mg/dL High 74 - 106 mg/dL [facility] Interpretation and review of laboratory results Abnormal [facility] Potassium [Moles/Vol] 4.6 mmol/L 3.5 - 5.1 mmol/L [facility] Sodium [Moles/Vol] 143 mmol/L 136 - 145 mmol/L [facility] TBH EGFR-NON AF SENEGALESE >60 >=60 mL/min/1.73m 2 [facility] Urea nitrogen [Mass/Vol] 20 mg/dL High 7.0 - 18.0 mg/dL [facility] Urea nitrogen/Creatinine [Mass ratio] 23.3 mg/mg [facility] X-ray reportOrdered By: Anton Penny on 05-28-2024 Study report [facility] [address] [place] [address] XRay Report Signed Patient: Karina De Oliveira MR#: [id number] : 1965 Acct:[id number] Age/Sex: 58 / F ADM Date: 5 Loc: [facility] Room: Type: [facility] Attending Dr: Lui Banks II, MD Copies to: Lui Banks MD~ Ordering Provider: Lui Banks MD Date of Service: 05/28/24 XR/XR knee RT 4V*: M25.561 - Pain in right knee ([id number]) XR/XR pelvis 1-2V: M25.561 - Pain in [...] Penny Jr., D.O.05/28/2024 3:24 PM Dictation Location: [place] [address] Transcribed By: [facility] 05/28/24 1524 Dictated By: Moustapha Penny Jr, DO 05/28/24 1523 Signed By: 05/28/24 1524 [facility] XR knee RT 4V*on 05-28-2024 XR knee RT 4V* [facility] [address] [place] [address] XRay Report Signed Patient: Karina De Oliveira MR#: [id number] : 1965 Acct:[id number] Age/Sex: 58 / F ADM Date: 05/28/24 Loc: [facility] Room: Type: [facility] Attending Dr: Lui Banks II, MD Copies to: Lui Banks MD Ordering Provider: Lui Banks MD Date of Service: 05/28/24 XR/XR knee RT 4V*: M25.561 - Pain in right knee ([id number]) XR/XR pelvis 1-2V: M25.561 - Pain in [...] RIGHT KNEE. Impression dictated by: Amor Garcia Jr.O.05/28/2024 3:24 PM Dictation Location: [place] [address] Transcribed By: [facility] 05/28/24 152 Dictated By: Moustapha Penny Jr, DO 05/28/24 1523 Signed By: 05/28/24 1524 Normal [facility] ALL CBC WITH AUTO DIFFon BASOPHILS ABSOLUTE AUTO 0.1 [facility] Basophils/100 WBC (Bld) 0.5 % 0.2 - 2.0 % [facility] Eosinophils/100 WBC (Bld) 4 % 0.9 - 7.0 % [facility] Erythrocyte distribution width (RBC) [Ratio] 14.6 % 11.0 - 15.0 % [facility] Hematocrit (Bld) [Volume fraction] 41.6 % 36.0 - 48.0 % [facility] Hemoglobin (Bld) [Mass/Vol] 14.1 g/dL 12.0 - 16.0 g/dL [facility] IMMATURE GRANULOCYTES ABS AUTO 0.07 High [facility] Immature granulocytes/100 WBC (Bld) 0.6 % High 0.0 - 0.5 % [facility] Interpretation and review of laboratory results Abnormal [facility] LYMPHOCYTES ABSOLUTE AUTO 3.6 [facility] Lymphocytes/100 WBC (Bld) 32.6 % 20.5 - 60.0 % [facility] MCH (RBC) [Entitic mass] 32.3 pg 26.7 - 34.0 pg [facility] MCHC (RBC) [Mass/Vol] 33.9 g/dL 29.9 - 35.2 g/dL [facility] MCV (RBC) [Entitic vol] 95.2 fL 81.0 - 99.0 fL [facility] MONOCYTES ABSOLUTE AUTO 0.8 [facility] Monocytes/100 WBC (Bld) 6.9 % 1.7 - 12.0 % [facility] NEUTROPHILS ABSOLUTE AUTO 6.2 [facility] Neutrophils/100 WBC (Bld) 55.4 % 43.0 - 75.0 % [facility] Platelet mean volume (Bld) [Entitic vol] 10.7 fL 9.5 - 13.5 fL [facility] EO # 0.4 [facility]H PLT 193 [facility] TB RBC 4.37 [facility] TB WBC 11.1 High [facility] XR Knee - right 3 Viewson The [address] [address] XRay Report Signed Patient: KARINA DE OLIVEIRA MR#: [id number] : 1965 Acct:[id number] Age/Sex: 58 / F ADM Date: 05/21/24 Loc: LAB Attending Dr: Ameena Vera EMBEDDED LINUX DEVELOPER Ordering Physician: Ameena Vera NP Date of Service: 05/21/24 Procedure(s): XR knee RT 3V Accession Number(s): [id number] cc: Ameena Vera NP The [place] [address] Patient Name: KARINA DE OLIVEIRA MRN: [facility]:[id number] date: 1965 Sex: F Assigned Patient Location: LAB Current Patient Location: LAB Accession/Order Number: [id number] Exam Date: 05/21/2024 13:21 Report Date: 05/21/2024 [...] Penny Jr., D.O.05/21/2024 1:21 PM Dictation Location: [place] [address] Electronically authenticated by: [id number] Y Date: 05/21/2024 13:21 Dictated By: Moustapha Penny M.D. Signed By: 05/21/24 1324 DD/ 132 TD/TT: Prefitter Doors: [facility] Radiology, Radiologist, MD - 05/21/2024 The [place] [id number] XRay Report Signed Patient: KARINA DE OLIVEIRA MR#: [id number] : 1965 Acct:[id number] Age/Sex: 58 / F ADM Date: 05/21/24 Loc: LAB Attending Dr: Ameena Vera EMBEDDED LINUX DEVELOPER Ordering Physician: Ameena Vera NP Date of Service: 05/21/24 Procedure(s): XR knee RT 3V Accession Number(s): [id number] cc: Ameena Vera NP [place] [address] Patient Name: KARINA DE OLIVEIRA MRN: [id number] date: 1965 Sex: F Assigned Patient Location: LAB Current Patient Location: LAB Accession/Order Number: [id number] Exam Date: 05/21/2024 13:21 Report Date: 05/21/2024 [...] Penny Jr., D.O.05/21/2024 1:21 PM Dictation Location: [place] [address] Electronically authenticated by: [id number] Y Date: 05/21/2024 13:21 Dictated By: Moustapha Penny M.D. Signed By: 05/21/24 1324 DD/ 1321 TD/TT: Prefitter Doors: [facility] Radiology Study observation (narrative) [facility] XR Knee - right 3 ViewsOrder ed By: Radiologist Radiology on 05-21-2024 [facility] Work Phone: HbA1c (Bld) [Mass fraction]o n 05-19-2024 Interpretation and review of laboratory results Abnormal [facility] Laboratory - Hematology and Cell countson 05-19-2024 HbA1c (Bld) [Mass fraction] 6.70 % [facility] HbA1c (Bld) [Mass fraction]o n 03-30-2024 Interpretation and review of laboratory results Abnormal [facility] Laboratory - Hematology and Cell countson 03-30-2024 HbA1c (Bld) [Mass fraction] 6.9 % [facility] MM TOMOSYNTHESIS SCREENING B Ion 03-18-2024 [place] [address] Mammography Report Signed Patient: KARINA DE OLIVEIRA MR#: [id number] : 1965 Acct:[id number] Age/Sex: 58 / F ADM Date: 03/18/24 Loc: MAMMO Attending Dr: RADHA BARCLAY Ordering Physician: RADHA BARCLAY Results: Date of Service: 03/18/24 Follow Up: Procedure(s): MM tomosynthesis screening BI Accession Number(s): [id number] cc: LOCO DRAKE SUSAN Patient Name: KARINA DE OLIVEIRA MR#: [id number] : 1965 Exam Date: 03/18/2024 Ordering Doctor: DR RADHA BARCLAY [facility] RADIOLOGY REPORT PROCEDURE: MM TOMOSYNTHESIS SCREENING [...] skin cancer at age 69. LOCATION: The [facility] BREAST COMPOSITION: There are scattered [...] Signed By: 03/18/24 1454 DD/ 1454 TD/TT: Prefitter Doors: [facility] Radiology, Radiologist, MD - 03/18/2024 [place] [address] Mammography Report Signed Patient: KARINA DE OLIVEIRA MR#: [id number] : 1965 Acct:[id number] Age/Sex: 58 / F ADM Date: 03/18/24 Loc: MAMMO Attending Dr: RADHA BARCLAY Ordering Physician: RADHA BARCLAY Results: Date of Service: 03/18/24 Follow Up: Procedure(s): MM tomosynthesis screening BI Accession Number(s): [id number] cc: LOCO DRAKE SUSAN Patient Name: KARINA DE OLIVEIRA MR#: [id number] : 1965 Exam Date: 03/18/2024 Ordering Doctor: DR RADHA BARCLAY [facility] RADIOLOGY REPORT PROCEDURE: MM TOMOSYNTHESIS SCREENING [...] skin cancer at age 69. LOCATION: The [facility] BREAST COMPOSITION: There are scattered [...] Signed By: 03/18/24 1454 DD/ 1454 TD/TT: Prefitter Doors: [facility] Radiology Study observation (narrative) [facility] MM TOMOSYNTHESIS SCREENING B IOrdered By: Radiologist Radiology on 03-18-2024 [facility] Work Phone: ALL CBC WITH AUTO DIFFon BASOPHILS ABSOLUTE AUTO 0.1 [facility] Basophils/100 WBC (Bld) 0.4 % 0.2 - 2.0 % [facility] Eosinophils/100 WBC (Bld) 3.2 % 0.9 - 7.0 % [facility] Erythrocyte distribution width (RBC) [Ratio] 15.6 % High 11.0 - 15.0 % [facility] Hematocrit (Bld) [Volume fraction] 42.4 % 36.0 - 48.0 % [facility] Hemoglobin (Bld) [Mass/Vol] 13.9 g/dL 12.0 - 16.0 g/dL [facility] IMMATURE GRANULOCYTES ABS AUTO 0.09 High [facility] Immature granulocytes/100 WBC (Bld) 0.7 % High 0.0 - 0.5 % [facility] Interpretation and review of laboratory results Abnormal [facility] LYMPHOCYTES ABSOLUTE AUTO 3.5 [facility] Lymphocytes/100 WBC (Bld) 27.7 % 20.5 - 60.0 % [facility] MCH (RBC) [Entitic mass] 31.4 pg 26.7 - 34.0 pg [facility] MCHC (RBC) [Mass/Vol] 32.8 g/dL 29.9 - 35.2 g/dL [facility] MCV (RBC) [Entitic vol] 95.7 fL 81.0 - 99.0 fL [facility] MONOCYTES ABSOLUTE AUTO 0.9 High [facility] Monocytes/100 WBC (Bld) 7.4 % 1.7 - 12.0 % [facility] NEUTROPHILS ABSOLUTE AUTO 7.7 High [facility] Neutrophils/100 WBC (Bld) 60.6 % 43.0 - 75.0 % [facility] Platelet mean volume (Bld) [Entitic vol] 10.9 fL 9.5 - 13.5 fL [facility] TBH EO # 0.4 [facility]H PLT 219 [facility] RBC 4.43 [facility] WBC 12.8 High [facility] XR LSPINE 2_3 VIEWSon 2022 XR LSPINE [...] PATTIE SALTER Date: 2022-06-07 11:15 Normal [facility] CBC AUTO DIFFon 04-12-2022 BASO # 0.1 103/ul Normal 0.0-0.1 [facility] Comment on above: Performed By: #### C BC ####[facility] [address] [place] [address]DrPasquale Valenzuela Basophils/100 WBC (Bld) 0.5 % Normal 0.2-2.0 [facility] Comment on above: Performed By: #### C BC ####[facility] [address] [place] [address]DrPasquale Valenzuela EO # 0.3 103/ul Normal 0.0-0.7 [facility] Comment on above: Performed By: #### C BC ####[facility] [address] [place], [place] [address]Dr. Ricky Valenzuela Eosinophils/100 WBC (Bld) 3.0 % Normal 0.9-7.0 [facility] Comment on above: Performed By: #### C BC ####[facility] [address] [place], [place] [address]Dr. Ricky Valenzuela Erythrocyte distribution width (RBC) [Ratio] 14.8 % Normal 11.0-15.0 [facility] Comment on above: Performed By: #### C BC ####[facility] [address] [place], [place] [address]Dr. Ricky Valenzuela Hematocrit (Bld) [Volume fraction] 40.6 % Normal 36.0-48.0 [facility] Comment on above: Performed By: #### C BC ####[facility] [address] [place], [place] [address]Dr. Ricky Valenzuela Hemoglobin (Bld) [Mass/Vol] 13.5 g/dL Normal 12.0-16.0 [facility] Comment on above: Performed By: #### C BC ####[facility] [address] [place], [place] [address]Dr. Lesleysharron Nicolas IG # 0.16 10e3/ul Critically high 0.00-0.03 The [facility] Comment on above: Performed By: #### C BC ####[facility] [address] [place], [place] [address]Dr. Lesleysharron Nicolas IG % 1.4 % Critically high 0.0-0.5 [facility] Comment on above: Performed By: #### C BC ####[facility] [address] [place], [place] [address]Dr. Ricky Valenzuela LYMPH # 3.4 103/ul Normal 1.2-3.8 [facility] Comment on above: Performed By: #### C BC ####[facility] [address] [place], [place] [address]Dr. Ricky Valenzuela Lymphocytes/100 WBC (Bld) 30.4 % Normal 20.5-60.0 [facility] Comment on above: Performed By: #### C BC ####[facility] [address] [place] [address]DrPasquale Valenzuela MANUAL DIFF REQ NO Normal [facility] Comment on above: Performed By: #### C BC ####[facility] [address] [place] [address]DrPasquale Valenzuela MCH (RBC) [Entitic mass] 31.8 pg Normal 26.7-34.0 [facility] Comment on above: Performed By: #### C BC ####[facility] [address] [place], [place] [address]DrPasquale Valenzuela MCHC (RBC) [Mass/Vol] 33.3 g/dL Normal 29.9-35.2 [facility] Comment on above: Performed By: #### C BC ####[facility] [address] [place], [place] [address]DrPasquale Valenzuela MCV (RBC) [Entitic vol] 95.5 fL Normal 81.0-99.0 [facility] Comment on above: Performed By: #### C BC ####[facility] [address] [place], [place] [address]DrPasquale Valenzuela MONO # 0.9 103/ul Critically high 0.3-0.8 [facility] Comment on above: Performed By: #### C BC ####[facility] [address] [place], [place] [address]DrPasquale Valenzuela Monocytes/100 WBC (Bld) 7.7 % Normal 1.7-12.0 [facility] Comment on above: Performed By: #### C BC ####[facility] [address] [place], [place] [address]DrPasquale Valenzuela NEUT # 6.3 103/ul Normal 1.4-6.5 [facility] Comment on above: Performed By: #### C BC ####[facility] [address] [place], [place] [address]DrPasquale Valenzuela Neutrophils/100 WBC (Bld) 57.0 % Normal 43.0-75.0 [facility] Comment on above: Performed By: #### C BC ####[facility] [address] [place] [id number]. Ricky Valenzuela Platelet mean volume (Bld) [Entitic vol] 9.8 fL Normal 9.5-13.5 [facility] Comment on above: Performed By: #### C BC ####[facility] [address] [place] [address]Dr. Ricky Valenzuela PLT 246 103/ul Normal 150-450 The [facility] Comment on above: Performed By: #### C BC ####[facility] [address] [place], [place] [address]Dr. Ricky Valenzuela RBC 4.25 106/ul Normal 4.20-5.40 [facility] Comment on above: Performed By: #### C BC ####[facility] [address] [place], [place] [address]DrPasquale Ricky Valenzuela WBC 11.1 103/ul Critically high 4.0-11.0 The [facility] Comment on above: Performed By: #### C BC ####[facility] [address] [place], [place] [address]DrPasquale Ricky Valenzuela GLYCOHEMOGLOBIN A1Con 2022 ADA RECOMMENDATION SEE BELOW Normal [facility] Comment on above: Result Comment: ADA RECOMMENDED LIMIT 4.0 - 6.0 ADA THERAPEUTIC TARGET < 7.0 ACTION SUGGESTED > 7.0 Performed By: #### A 1C ####[facility] [address] [place], [place] [address]Dr. Ricky Valenzuela Glucose [Mass/Vol] 160 mg/dL Normal The [facility] Comment on above: Performed By: #### A 1C ####[facility] [address] [place], [place] [address]Dr. Ricky Vaelnzuela HbA1c (Bld) [Mass fraction] 7.2 % Critically high 4.5-6.2 [facility] Comment on above: Performed By: #### A 1C ####[facility] [address] [place] [address]Dr. Ricky Valenzuela MICROALBUMIN, RAND URon -0 mALB <1.3 Normal <=30.0 [facility] Comment on above: Performed By: #### M ALBR #### [facility] [address] [place] [address] [address] Ricky Valenzuela PROF 14(COMP METB)on 023 Albumin [Mass/Vol] 3.3 g/dL Critically low 3.4-5.0 Th e [facility] Comment on above: Performed By: #### C MP #### [facility] [address] [place] [address] [address] Ricky Valenzuela Albumin/Globulin [Mass ratio] 0.9 {ratio} Normal [facility] Comment on above: Performed By: #### C MP #### [facility] [address] [place] [address] Dr. Ricky Valenzuela ALP [Catalytic activity/Vol] 90 U/L Normal 46-116 [facility] Comment on above: Performed By: #### C MP #### [facility] [address] [place] [address] [address] Rciky Valenzuela ALT [Catalytic activity/Vol] 42 U/L Normal 14-59 [facility] Comment on above: Performed By: #### C MP #### [facility] [address] [place] [address] [address] Ricky Valenzuela Anion gap [Moles/Vol] 10.1 mmol/L Normal [facility] Comment on above: Performed By: #### C MP #### [facility] [address] [place] [address] [address] Ricky Valenzuela AST [Catalytic activity/Vol] 21 U/L Normal 15-37 [facility] Comment on above: Performed By: #### C MP #### [facility] [address] [place] [address] Dr. Ricky Valenzuela Bilirubin [Mass/Vol] 0.3 mg/dL Normal 0.2-1.0 [facility] Comment on above: Performed By: #### C MP #### [facility] [address] [place] [address] [address] Ricky Valenzuela Calcium [Mass/Vol] 9.8 mg/dL Normal 8.5-10.1 [facility] Comment on above: Performed By: #### C MP #### [facility] [address] [place] [address] [address] Ricky Valenzuela Chloride [Moles/Vol] 99 mmol/L Normal 98-107 [facility] Comment on above: Performed By: #### C MP #### [facility] [address] [place] [address] [address] Ricky Valenzuela CO2 [Moles/Vol] 33.7 mmol/L Critically high 21.0-32.0 [facility] Comment on above: Performed By: #### C MP #### [facility] [address] [place] [address] Dr. Ricky Valenzuela Creatinine [Mass/Vol] 0.94 mg/dL Normal 0.55-1.02 [facility] Comment on above: Performed By: #### C MP #### [facility] [address] [place] [address] Dr. Ricky Valenzuela EGFR-AF SENEGALESE >60 Normal >=60 [facility] [place] Comment on above: Performed By: #### C MP #### [facility] [address] [place] [address] Dr. Ricky Valenzuela EGFR-NON AF SENEGALESE >60 Normal >=60 [facility] Comment on above: Performed By: #### C MP #### [facility] [address] [address] [address] Ricky Valenzuela Globulin (S) [Mass/Vol] 3.8 g/dL Normal [facility] Comment on above: Performed By: #### C MP #### [facility] [address] [place] [address] Dr. Ricky Valenzuela Glucose [Mass/Vol] 168 mg/dL Critically high 74-106 [facility] Comment on above: Performed By: #### C MP #### [facility] [address] [address] [address] Ricky Valenzuela Potassium [Moles/Vol] 4.8 mmol/L Normal 3.5-5.1 [facility] Comment on above: Performed By: #### C MP #### [facility] [address] [address] [address] Ricky Valenzuela Protein [Mass/Vol] 7.1 g/dL Normal 6.4-8.2 [facility] Comment on above: Performed By: #### C MP #### [facility] [id number] Ricky Valenzuela Sodium [Moles/Vol] 138 mmol/L Normal 136-145 [facility] Comment on above: Performed By: #### C MP #### [facility] [address] [place] [address] Dr. Ricky Valenzuela Urea nitrogen [Mass/Vol] 22.0 mg/dL Critically high 7.0-18.0 [facility] Comment on above: Performed By: #### C MP #### [facility] [address] [place] [address] Dr. Ricky Valenzuela Urea nitrogen/Creatinine [Mass ratio] 23.4 mg/mg Normal [facility] Comment on above: Performed By: #### C MP #### [facility] [address] [place], [place] [id number] Dr. Ricky Valenzuela Cytologyon 08-30-2021 Cytology (NOTE) INTERPRETATION Vaginal material, (ThinPrep vial, Imaging-assisted review): Specimen Adequacy: Satisfactory for evaluation. Descriptive Diagnosis: Negative for intraepithelial lesion or malignancy. Mechanical Systems Designer: CLARK Delacruz(ASCP) Electronically Signed Out zackary/09/07/2021 Source: A: Vaginal material, (ThinPrep vial, Imaging-assisted review) Clinical History Hysterectomy Surgery: Salpingostomy; Ovary removal Z12.4 Encounter for screening for malignant neoplasm of cervix GYNECOLOGIC CYTOLOGY REPORT Patient Name: KARINA DE OLIVEIRA [facility] Rec: [id number] Path Number: [id number] [facility] [address] [place] [address]. [place], [place] [address] Normal [facility] Comment on above: Performed By: #### P PPVP #### [id number] [place] [address] Career Transition Specialist: Luca Cummins MD CBC AUTO DIFFon 08-09-2021 BASO # 0.1 103/ul Normal 0.0-0.1 [facility] Comment on above: Performed By: #### C BC #### [facility] [address] [place] [address] Dr. Ricky Valenzuela Basophils/100 WBC (Bld) 0.8 % Normal 0.2-2.0 [facility] Comment on above: Performed By: #### C BC #### [facility] [address] [place] [address] Dr. Ricky Valenzuela EO # 0.2 103/ul Normal 0.0-0.7 [facility] Comment on above: Performed By: #### C BC #### [facility] [address] [place] [address] Dr. Ricky Valenzuela Eosinophils/100 WBC (Bld) 2.1 % Normal 0.9-7.0 [facility] Comment on above: Performed By: #### C BC #### [facility] [address] [place] [address] Dr. Ricky Valenzuela Erythrocyte distribution width (RBC) [Ratio] 15.2 % Critically high 11.0-15.0 [facility] Comment on above: Performed By: #### C BC #### [facility] [address] [place] [address] Dr. Ricky Valenzuela Hematocrit (Bld) [Volume fraction] 41.5 % Normal 36.0-48.0 [facility] Comment on above: Performed By: #### C BC #### [facility] [address] [place] [address] Dr. Ricky Valenzuela Hemoglobin (Bld) [Mass/Vol] 13.5 g/dL Normal 12.0-16.0 [facility] Comment on above: Performed By: #### C BC #### [facility] [address] [place] [address] Dr. Ricky Valenzuela IG # 0.42 10e3/ul Critically high 0.00-0.03 [facility] Comment on above: Performed By: #### C BC #### [facility] [address] [place] [address] Dr. Ricky Valenzuela IG % 3.8 % Critically high 0.0-0.5 [facility] Comment on above: Performed By: #### C BC #### [facility] [address] [place] [address] Dr. Ricky Valenzuela LYMPH # 3.3 103/ul Normal 1.2-3.8 [facility] Comment on above: Performed By: #### C BC #### [facility] [address] [place] [address] Dr. Ricky Valenzuela Lymphocytes/100 WBC (Bld) 29.1 % Normal 20.5-60.0 [facility] Comment on above: Performed By: #### C BC #### [facility] [address] [place] [address] Dr. Ricky Valenzuela MANUAL DIFF REQ NO Normal [facility] Comment on above: Performed By: #### C BC #### [facility] [address] [place] [address] Dr. Ricky Valenzuela MCH (RBC) [Entitic mass] 32.4 pg Normal 26.7-34.0 [facility] Comment on above: Performed By: #### C BC #### [facility] [address] [place] [address] Dr. Ricky Valenzuela MCHC (RBC) [Mass/Vol] 32.5 g/dL Normal 29.9-35.2 [facility] Comment on above: Performed By: #### C BC #### [facility] [address] [place] [address] Dr. Ricky Valenzuela MCV (RBC) [Entitic vol] 99.5 fL Critically high 81.0-99.0 [facility] Comment on above: Performed By: #### C BC #### [facility] [address] [place] [address] Dr. Ricky Valenzuela MONO # 0.8 103/ul Normal 0.3-0.8 [facility] Comment on above: Performed By: #### C BC #### [facility] [address] [address] [address] Ricky Valenzuela Monocytes/100 WBC (Bld) 7.5 % Normal 1.7-12.0 [facility] Comment on above: Performed By: #### C BC #### [facility] [address] [address] [address] Ricky Valenzuela NEUT # 6.3 103/ul Normal 1.4-6.5 [facility] Comment on above: Performed By: #### C BC #### [facility] [address] [address] [address] Ricky Valenzuela Neutrophils/100 WBC (Bld) 56.7 % Normal 43.0-75.0 [facility] Comment on above: Performed By: #### C BC #### [facility] [address] [address] [address] Ricky Valenzuela Platelet mean volume (Bld) [Entitic vol] 9.8 fL Normal 9.5-13.5 [facility] Comment on above: Performed By: #### C BC #### [facility] [address] [address] [address] Ricky Valenzuela PLT 265 103/ul Normal 150-450 [facility] Comment on above: Performed By: #### C BC #### [facility] [address] [address] [address] Ricky Valenzuela RBC 4.17 106/ul Critically low 4.20-5.40 [facility] Comment on above: Performed By: #### C BC #### [facility] [address] [address] [address] Ricky Valenzuela WBC 11.2 103/ul Critically high 4.0-11.0 [facility] [place] Comment on above: Performed By: #### C BC #### [facility] [address] [address] [address] Ricky Valenzuela GLYCOHEMOGLOBIN A1Con 2021 ADA RECOMMENDATION SEE BELOW Normal [facility] Comment on above: Result Comment: ADA RECOMMENDED LIMIT 4.0 - 6.0 ADA THERAPEUTIC TARGET < 7.0 ACTION SUGGESTED > 7.0 Performed By: #### A 1C ####[facility] [id number] [address]. Ricky Valenzuela Glucose [Mass/Vol] 183 mg/dL Normal [facility] Comment on above: Performed By: #### A 1C ####[facility] [id number] [id number] Ricky Valenzuela HbA1c (Bld) [Mass fraction] 8.0 % Critically high 4.5-6.2 [facility] Comment on above: Performed By: #### A 1C ####[facility] [id number] [address]Dr. Ricky Valenzuela LIPID PROFILEon 08-09-2021 CHOL-HDL RATIO NORM SEE BELOW Normal [facility] Comment on above: Result Comment: 3.3 - 4.4 LOW RISK 4.4 - 7.1 AVERAGE RISK 7.1 - 11.0 MODERATE RISK >11.0 HIGH RISK Performed By: #### C MP, LIPID #### [facility] [address] [address] [address] Ricky Valenzuela Cholesterol [Mass/Vol] 239 mg/dL Critically high <=200 [facility] Comment on above: Performed By: #### C MP, LIPID #### [facility] [address] [address] [address] Ricky Valenzuela Cholesterol in HDL [Mass/Vol] 36 mg/dL Critically low 40-60 [facility] Comment on above: Performed By: #### C MP, LIPID #### [facility] [address] [address] [address] Ricky Valenzuela Cholesterol in LDL [Mass/Vol] 164.2 mg/dL Normal [facility] Comment on above: Performed By: #### C MP, LIPID #### [facility] [address] [address] [address] Ricky Valenzuela Cholesterol.total/Ch olesterol in HDL [Mass ratio] 6.6 {ratio} Normal [facility] Comment on above: Performed By: #### C MP, LIPID #### [facility] [address] [address] [address] Ricky Valenzuela HDL NORMAL > or = 60 mg/dl - LO W CARDIOVASCULAR RISK <40 mg/dl - HIGH CARDIOVASCULAR RISK Normal [facility] Comment on above: Performed By: #### C MP, LIPID #### [facility] [address] [address] [address] Ricky Valenzuela LDL CALC NORMAL SEE BELOW Normal [facility] Comment on above: Result Comment: <100 mg/dl OPTIMAL 100 - 129 mg/dl NEAR OR ABOVE OPTIMAL 130 - 159 mg/dl BORDERLINE HIGH 160 - 189 mg/dl HIGH >190 mg/dl VERY HIGH Performed By: #### C MP, LIPID #### [facility] [address] [address] [address] Ricky Valenzuela Triglyceride [Mass/Vol] 194 mg/dL Critically high <=150 [facility] Comment on above: Performed By: #### C MP, LIPID #### [facility] [address] [address] [address] Ricky Valenzuela VLDL CALC 38.8 mg/dL Normal [facility] Comment on above: Performed By: #### C MP, LIPID #### [facility] [address] [address] [address] Ricky Valenzuela MICROALBUMIN, RAND URon 07-13 mALB 13.1 mg/L Normal <=30.0 [facility] Comment on above: Performed By: #### M ALBR ####[facility] [id number] [id number][address] Ricky Valenzuela PROF 14(COMP METB)on 022 Albumin [Mass/Vol] 3.3 g/dL Critically low 3.4-5.0 [facility] Comment on above: Performed By: #### C MP, LIPID #### [facility] [address] [address] [address] Ricky Valenzuela Albumin/Globulin [Mass ratio] 0.8 {ratio} Normal [facility] Comment on above: Performed By: #### C MP, LIPID #### [facility] [address] [address] [address] Ricky Valenzuela ALP [Catalytic activity/Vol] 93 U/L Normal 46-116 [facility] Comment on above: Performed By: #### C MP, LIPID #### [facility] [address] [address] [address] Ricky Valenzuela ALT [Catalytic activity/Vol] 37 U/L Normal 14-59 [facility] Comment on above: Performed By: #### C MP, LIPID #### [facility] [address] [address] [address] Ricky Valenzuela Anion gap [Moles/Vol] 10.9 mmol/L Normal [facility] Comment on above: Performed By: #### C MP, LIPID #### [facility] [address] [place] [address] Dr. Ricky Valenzuela AST [Catalytic activity/Vol] 10 U/L Critically low 15-37 [facility] Comment on above: Performed By: #### C MP, LIPID #### [facility] [address] [place] [address] Dr. Ricky Valenzuela Bilirubin [Mass/Vol] 0.2 mg/dL Normal 0.2-1.0 [facility] Comment on above: Performed By: #### C MP, LIPID #### [facility] [address] [place] [address] Dr. Ricky Valenzuela Calcium [Mass/Vol] 9.0 mg/dL Normal 8.5-10.1 [facility] Comment on above: Performed By: #### C MP, LIPID #### [facility] [address] [place] [address] Dr. Ricky Valenzuela Chloride [Moles/Vol] 100 mmol/L Normal 98-107 [facility] Comment on above: Performed By: #### C MP, LIPID #### [facility] [address] [place] [address] Dr. Ricky Valenzuela CO2 [Moles/Vol] 32.2 mmol/L Critically high 21.0-32.0 [facility] Comment on above: Performed By: #### C MP, LIPID #### [facility] [address] [place] [address] Dr. Ricky Valenzuela Creatinine [Mass/Vol] 0.95 mg/dL Normal 0.55-1.02 [facility] Comment on above: Performed By: #### C MP, LIPID #### [facility] [address] [place] [address] Dr. Ricky Valenzuela EGFR-AF SENEGALESE >60 Normal >=60 [facility] [place] Comment on above: Performed By: #### C MP, LIPID #### [facility] [address] [address] [address] Ricky Valenzuela EGFR-NON AF SENEGALESE >60 Normal >=60 [facility] Comment on above: Performed By: #### C MP, LIPID #### [facility] [address] [place] [address] Dr. Ricky Valenzuela Globulin (S) [Mass/Vol] 4.2 g/dL Normal [facility] Comment on above: Performed By: #### C MP, LIPID #### [facility] [address] [place] [address] Dr. Ricky Valenzuela Glucose [Mass/Vol] 200 mg/dL Critically high 74-106 [facility] Comment on above: Performed By: #### C MP, LIPID #### [facility] [address] [place] [address] Dr. Ricky Valenzuela Potassium [Moles/Vol] 4.1 mmol/L Normal 3.5-5.1 [facility] Comment on above: Performed By: #### C MP, LIPID #### [facility] [address] [place] [address] Dr. Ricky Valenzuela Protein [Mass/Vol] 7.5 g/dL Normal 6.4-8.2 [facility] Comment on above: Performed By: #### C MP, LIPID #### [facility] [address] [place] [address] Dr. Ricky Valenzuela Sodium [Moles/Vol] 139 mmol/L Normal 136-145 [facility] Comment on above: Performed By: #### C MP, LIPID #### [facility] [address] [place] [address] Dr. Ricky Valenzuela Urea nitrogen [Mass/Vol] 13.0 mg/dL Normal 7.0-18.0 [facility] Comment on above: Performed By: #### C MP, LIPID #### [facility] [address] [address] [address] Ricky Valenzuela Urea nitrogen/Creatinine [Mass ratio] 13.7 mg/mg Normal [facility] Comment on above: Performed By: #### C MP, LIPID #### [facility] [id number] Ricky Valenzuela POINT OF CARE GLUCOSEon 06-12 Glucose [Mass/Vol] 176 mg/dL Critically high 74-106 [facility] Comment on above: Performed By: #### P OCGLUC #### [facility] [address] [address] [address] Ricky Valenzuela Vital Signs Date Time Vital Sign Value Performing Clinician Facility 11-02-2024 09:56-0400 Body height 152.4 cm Kasi Bennett MD Work Phone: [facility] 11-02-2024 09:56-0400 Body mass index (BMI) [Ratio] 40.62 kg/m2 Kasi Bennett MD Work Phone: [facility] 11-02-2024 09:56-0400 Body weight 94.35 kg Kasi Bennett MD Work Phone: [facility] 11-02-2024 09:56-0400 Heart rate 83 /min Kasi Bennett MD Work Phone: [facility] 11-02-2024 09:56-0400 Respiratory rate 18 /min Kasi Bennett MD Work Phone: [facility] 11-02-2024 09:56-0400 SaO2% (BldA) [Mass fraction] 95 % Kasi Bennett MD Work Phone: [facility] 10-19-2024 11:44-0400 Body temperature 98.1 [degF] Ameena Vera Work Phone: [facility] 10-19-2024 11:44-0400 Body weight 96.41 kg Ameena Aichholz Work Phone: [facility] 10-19-2024 11:44-0400 Diastolic blood pressure 78 mm[Hg] Ameena Aichholz Work Phone: [facility] 10-19-2024 11:44-0400 Heart rate 93 /min Ameena Aichholz Work Phone: [facility] 10-19-2024 11:44-0400 Respiratory rate 16 /min Ameena Aichholz Work Phone: [facility] 10-19-2024 11:44-0400 SaO2% (BldA) [Mass fraction] 97 % Ameena Aichholz Work Phone: [facility] 10-19-2024 11:44-0400 Systolic blood pressure 138 mm[Hg] Ameena Aichholz Work Phone: [facility] 08-20-2024 11:10-0400 Diastolic blood pressure 58 mm[Hg] Ameena Aichholz [employer] Work Phone: [facility] 08-20-2024 11:10-0400 Systolic blood pressure 90 mm[Hg] Ameena Aichholz [employer]EL[employer] Work Phone: [facility] 08-20-2024 10:37-0400 Body mass index (BMI) [Ratio] 39.74 kg/m2 Ameena Aichholz [employer] Work Phone: [facility] 08-20-2024 10:37-0400 Body temperature 98.49 [degF] Ameena Aichholz [employer]EL[employer] Work Phone: [facility] 08-20-2024 10:37-0400 Body weight 96.98 kg Ameena Aichholz [employer] Work Phone: [facility] 08-20-2024 10:37-0400 Heart rate 101 /min Ameena Aichholz [employer] Work Phone: [facility] 08-20-2024 10:37-0400 Respiratory rate 18 /min Ameena Davislorie [employer] Work Phone: [facility] 08-20-2024 10:37-0400 SaO2% (BldA) [Mass fraction] 93 % Ameena Davislorie [employer] Work Phone: [facility] 07-29-2024 14:08-0400 Body height 156.2 cm Kasi Bennett MD Work Phone: [facility] 07-29-2024 14:08-0400 Body mass index (BMI) [Ratio] 39.04 kg/m2 Kasi Bennett MD Work Phone: [facility] 07-29-2024 14:08-0400 Body weight 95.25 kg Kasi Bennett MD Work Phone: [facility] 07-29-2024 14:08-0400 Diastolic blood pressure 64 mm[Hg] Kasi Bennett MD Work Phone: [facility] 07-29-2024 14:08-0400 Heart rate 86 /min Kasi Bennett MD Work Phone: [facility] 07-29-2024 14:08-0400 Respiratory rate 18 /min Kasi Bennett MD Work Phone: [facility] 07-29-2024 14:08-0400 SaO2% (BldA) [Mass fraction] 93 % Kasi Bennett MD Work Phone: [facility] 07-29-2024 14:08-0400 Systolic blood pressure 100 mm[Hg] Kasi Bennett MD Work Phone: [facility] 05-28-2024 13:16-0400 Body height 154.94 cm [facility] 05-28-2024 13:16-0400 Body mass index (BMI) [Ratio] 39.4 kg/m2 [facility] 05-28-2024 13:16-0400 Body weight 94.8 kg [facility] 05-19-2024 11:10-0400 Body height 157.5 cm Ameenaovidio Davisholz [employer] Work Phone: [facility] 05-19-2024 11:10-0400 Body mass index (BMI) [Ratio] 39.03 kg/m2 Ameena Aichholz [employer] Work Phone: [facility] 05-19-2024 11:10-0400 Body temperature 98.29 [degF] Ameena Ryanholz [employer] Work Phone: [facility] 05-19-2024 11:10-0400 Body weight 96.8 kg Ameena Pohholz [employer] Work Phone: [facility] 05-19-2024 11:10-0400 Diastolic blood pressure 80 mm[Hg] Ameena Pohholz [employer] Work Phone: [facility] 05-19-2024 11:10-0400 Heart rate 91 /min Ameena Pohholz [employer] Work Phone: [facility] 05-19-2024 11:10-0400 Respiratory rate 18 /min Ameena Aichholz [employer] Work Phone: [facility] 05-19-2024 11:10-0400 SaO2% (BldA) [Mass fraction] 96 % Ameena Pohholz [employer] Work Phone: [facility] 05-19-2024 11:10-0400 Systolic blood pressure 116 mm[Hg] Ameena Pohholz [employer] Work Phone: [facility] 04-21-2024 13:08-0400 Body height 157.5 cm Za Gillmor [employer] Work Phone: [facility] 04-21-2024 13:08-0400 Body mass index (BMI) [Ratio] 39.51 kg/m2 Za Gillmor [employer] Work Phone: [facility] 04-21-2024 13:08-0400 Body weight 97.98 kg Za Gillmor [employer] Work Phone: [facility] 04-21-2024 13:08-0400 Diastolic blood pressure 86 mm[Hg] Za Shipmanr [employer] Work Phone: [facility] 04-21-2024 13:08-0400 Heart rate 96 /min Za Shipmanr [employer] Work Phone: [facility] 04-21-2024 13:08-0400 SaO2% (BldA) [Mass fraction] 93 % Za Shipmanr [employer] Work Phone: [facility] 04-21-2024 13:08-0400 Systolic blood pressure 148 mm[Hg] Za Shipmanr [employer]EL[employer] Work Phone: [facility] 03-30-2024 09:40-0500 Body height 157.5 cm Sonam Drake [employer] Work Phone: [facility] 03-30-2024 09:40-0500 Body mass index (BMI) [Ratio] 39.51 kg/m2 Sonam Drake [employer] Work Phone: [facility] 03-30-2024 09:40-0500 Body temperature 97.3 [degF] Sonam Drake [employer] Work Phone: [facility] 03-30-2024 09:40-0500 Body weight 97.98 kg Sonam Drake [employer] Work Phone: [facility] 03-30-2024 09:40-0500 Diastolic blood pressure 74 mm[Hg] Sonam Drake [employer] Work Phone: [facility] 03-30-2024 09:40-0500 Heart rate 76 /min Sonam Drake [employer] Work Phone: [facility] 03-30-2024 09:40-0500 Respiratory rate 16 /min Sonam Drake [employer] Work Phone: [facility] 03-30-2024 09:40-0500 SaO2% (BldA) [Mass fraction] 98 % Sonam Drake [employer] Work Phone: [facility] 03-30-2024 09:40-0500 Systolic blood pressure 130 mm[Hg] Sonam Drake [employer] Work Phone: [facility] 03-03-2024 10:13-0500 Body height 157.5 cm Sonam Drake [employer] Work Phone: [facility] 03-03-2024 10:13-0500 Body mass index (BMI) [Ratio] 39.51 kg/m2 Sonam Drake [employer] Work Phone: [facility] 03-03-2024 10:13-0500 Body temperature 97.2 [degF] Sonam Drake [employer] Work Phone: [facility] 03-03-2024 10:13-0500 Body weight 97.98 kg Sonam Drake [employer] Work Phone: [facility] 03-03-2024 10:13-0500 Diastolic blood pressure 76 mm[Hg] Sonam Drake [employer] Work Phone: [facility] 03-03-2024 10:13-0500 Heart rate 84 /min Sonam Drake [employer] Work Phone: [facility] 03-03-2024 10:13-0500 Respiratory rate 16 /min Sonam Drake [employer] Work Phone: [facility] 03-03-2024 10:13-0500 SaO2% (BldA) [Mass fraction] 96 % Sonam Drake [employer] Work Phone: [facility] 03-03-2024 10:13-0500 Systolic blood pressure 120 mm[Hg] Sonam Drake [employer] Work Phone: [facility] 12-31-2023 10:06-0500 Body height 157.5 cm Sivan Banda DO Work Phone: [facility] 12-31-2023 10:06-0500 Body mass index (BMI) [Ratio] 39.14 kg/m2 Sivan Solo DO Work Phone: [facility] 12-31-2023 10:06-0500 Body weight 97.07 kg Sivan Solo DO Work Phone: [facility] 12-31-2023 10:06-0500 Diastolic blood pressure 72 mm[Hg] Sivan Solo DO Work Phone: [facility] 12-31-2023 10:06-0500 Heart rate 95 /min Sivan Solo DO Work Phone: [facility] 12-31-2023 10:06-0500 SaO2% (BldA) [Mass fraction] 97 % Sivan Solo DO Work Phone: [facility] 12-31-2023 10:06-0500 Systolic blood pressure 118 mm[Hg] Sivan Solo DO Work Phone: [facility] 12-30-2023 10:46-0500 Body mass index (BMI) [Ratio] 40.06 kg/m2 Sonam Drake [employer] Work Phone: [facility] 12-30-2023 10:46-0500 Body weight 99.34 kg Sonam Drake [employer] Work Phone: [facility] 12-30-2023 10:46-0500 Diastolic blood pressure 74 mm[Hg] Sonam Drake [employer] Work Phone: [facility] 12-30-2023 10:46-0500 Heart rate 97 /min Sonam Drake [employer] Work Phone: [facility] 12-30-2023 10:46-0500 SaO2% (BldA) [Mass fraction] 98 % Sonam Drake [employer] Work Phone: [facility] 12-30-2023 10:46-0500 Systolic blood pressure 98 mm[Hg] Sonam Drake [employer] Work Phone: [facility] 10-03-2023 10:07-0400 Body height 157.5 cm Sonam Drake [employer] Work Phone: [facility] 10-03-2023 10:07-0400 Body mass index (BMI) [Ratio] 39.32 kg/m2 Sonam Drake [employer] Work Phone: [facility] 10-03-2023 10:07-0400 Body temperature 97.5 [degF] Sonam Drake [employer] Work Phone: [facility] 10-03-2023 10:07-0400 Body weight 97.52 kg Sonam Drake [employer] Work Phone: [facility] 10-03-2023 10:07-0400 Diastolic blood pressure 70 mm[Hg] Sonam Drake [employer] Work Phone: [facility] 10-03-2023 10:07-0400 Heart rate 107 /min Sonam Drake [employer] Work Phone: [facility] Comment on above: 97% O2 10-03-2023 10:07-0400 Systolic blood pressure 90 mm[Hg] Sonam Drake [employer] Work Phone: [facility] 01-18-2023 09:10-0500 Body height 156.21 cm Elle Hendricks Other [employer] Other 01-18-2023 09:10-0500 Body mass index (BMI) [Ratio] 42.82 kg/m2 Elle Hendricks Other [employer] Other 01-18-2023 09:10-0500 Body temperature 98.2 [degF] Elle Hendricks Other [employer] Other 01-18-2023 09:10-0500 Body weight 104.51 kg Elle Hendricks Other [employer] Other 01-18-2023 09:10-0500 Diastolic blood pressure 92 mm[Hg] Elle Hendricks Other [employer] Other 01-18-2023 09:10-0500 Respiratory rate 18 /min Elle Hendricks Other [employer] Other 01-18-2023 09:10-0500 SaO2% (BldA) [Mass fraction] 97 % Elle Hendrikcs Other [employer] Other 01-18-2023 09:10-0500 Systolic blood pressure 145 mm[Hg] Elle Hendricks Other [employer] Other Encounters Encounter Date Encounter Type Care Provider Facility Start: 11-02-2024 End: 11-02-2024 [employer] Kasi Bennett MD Work Phone: [facility] [place] [facility] Start: 11-02-2024 End: 11-02-2024 [employer] Kasi Bennett MD Work Phone: [facility] [place] [facility] Start: 11-02-2024 End: 11-02-2024 Office outpatient visit 25 minutes Kasi Bennett MD Work Phone: [facility] Comment on above: Low serum parathyroi d hormone (PTH) (Primary Dx); Hypercalcemia; Vitamin D deficiency; Hypomagnesemia Start: 11-02-2024 End: 11-02-2024 ambulatory KASI BENNETT Not Available Start: 10-26-2024 End: 10-26-2024 ambulatory Tanya Crowley MD Facility:[facility] Start: 10-19-2024 End: 10-19-2024 ambulatory Ameena Vera Work Phone: [facility] Work Phone: Start: 10-19-2024 End: 10-19-2024 Patient encounter procedure Ameena Vera [employer] [facility] Work Phone: Start: 10-05-2024 End: 10-05-2024 Refill Jose Chandler MD Work Phone: [facility] Comment on above: Other hyperlipidemia Start: 09-29-2024 End: 09-29-2024 Refill Ameenaovidio Vera [employer] Work Phone: [facility] Comment on above: Lumbar back pain Start: 09-23-2024 End: 09-24-2024 Refill Ameena Chuy [employer] Work Phone: [facility] Comment on above: Diabetic polyneuropa thy associated with type 2 diabetes mellitus (HCC) Start: 08-20-2024 End: 08-31-2024 Refill Ameena Chuy [employer] Work Phone: [facility] Comment on above: Bilateral lower extr emity edema; Migraine with aura and without status migrainosus, not intractable ; Type 2 diabetes mellitus with diabetic microalbuminuria, without long-term current use of insulin (HCC); Osteoporosis, unspecified osteoporosis type, unspecified pathological fracture presence Start: 08-20-2024 End: 08-20-2024 Office outpatient visit 25 minutes Ameena Vera [employer] Work Phone: [facility] Comment on above: Type 2 diabetes cory itus with diabetic microalbuminuria, without long-term current use of insulin (HCC) (Primary Dx); Essential hypertension; Morbid (severe) obesity due to excess calories (E66.01); Cigarette nicotine dependence without complication; Chronic gout of multiple sites, unspecified cause; Gastroesophageal reflux disease without esophagitis; Bilateral lower extremity edema Start: 08-05-2024 End: 08-05-2024 Refill Ameena Nettiez [employer] Work Phone: [facility] Comment on above: Chronic gout of mult iple sites, unspecified cause (Primary Dx) Type 2 diabetes cory itus with diabetic microalbuminuria, without long-term current use of insulin ([facility]) Start: 08-02-2024 End: 08-04-2024 Refill Jose Chandler MD Work Phone: [facility] Comment on above: Lumbar back pain Start: 07-29-2024 End: 07-29-2024 Bamboo flowsheet Kasi Bennett MD Work Phone: [facility] Start: 07-29-2024 End: 07-29-2024 Bamboo flowsheet Kasi Bennett MD Work Phone: [facility] Start: 07-29-2024 End: 07-29-2024 Office outpatient new 45 minutes Kasi Bennett MD Work Phone: [facility] Comment on above: Hypercalcemia (Prima ry Dx); Low serum parathyroid hormone (PTH); Vitamin D deficiency Start: 07-29-2024 End: 07-29-2024 ambulatory KASI BENNETT Not Available Start: 07-26-2024 End: 07-27-2024 Refill Ameena Vera [employer] Work Phone: [facility] Comment on above: Lumbar back pain Start: 07-22-2024 End: 07-22-2024 Refill Jose Chandler MD Work Phone: [facility] Comment on above: Type 2 diabetes cory itus with diabetic microalbuminuria, without long-term current use of insulin ([facility]) Start: 07-14-2024 End: 07-14-2024 Orders Only Ameena Vera [employer] Work Phone: [facility] Comment on above: Low serum parathyroi d hormone (PTH) (Primary Dx) Start: 07-09-2024 End: 07-09-2024 Clinisync Result Encounter Ameena Vera [employer] Work Phone: [facility] External Department Unsolicited Start: 07-09-2024 End: 07-09-2024 Clinisync Result Encounter Ameenaovidio Vera [employer] Work Phone: [facility] External Department Unsolicited Start: 06-23-2024 End: 06-23-2024 Refill Ameena Nettiez [employer] Work Phone: [facility] Comment on above: Diabetic polyneuropa thy associated with type 2 diabetes mellitus ([facility]) Start: 06-22-2024 End: 06-22-2024 ambulatory Tanya Crowley MD Facility:[facility] Start: 06-11-2024 End: 06-11-2024 Refill Ameena Chuy [employer] Work Phone: [facility] Comment on above: Acute non-recurrent sinusitis of other sinus (Primary Dx) Start: 06-03-2024 End: 06-03-2024 Orders Only Ameena Nettiez [employer] Work Phone: [facility] Comment on above: Hypercalcemia (Prima ry Dx); Low serum parathyroid hormone (PTH) Start: 05-28-2024 End: 05-28-2024 Patient encounter procedure [facility] Work Phone: Start: 05-28-2024 End: 05-28-2024 Patient encounter procedure [facility] Start: 05-28-2024 End: 05-28-2024 ambulatory Lui Banks II Facility:[facility] Start: 05-22-2024 End: 05-22-2024 Orders Only Ameena Chuy [employer] Work Phone: [facility] Comment on above: Hypercalcemia (Prima ry Dx) Start: 05-21-2024 End: 05-21-2024 Clinisync Result Encounter Ameena Nettiez [employer] Work Phone: [facility] External Department Unsolicited Start: 05-21-2024 End: 05-21-2024 Clinisync Result Encounter Ameena Nettiez [employer] Work Phone: [facility] External Department Unsolicited Start: 05-19-2024 End: 05-19-2024 Bamboo flowsheet Ameena Chuy [employer]OPER Work Phone: [facility] Start: 05-19-2024 End: 05-19-2024 Bamboo flowsheet Ameena Chuy [employer] Work Phone: [facility] Start: 05-19-2024 End: 05-19-2024 ambulatory AMEENA DAVISJANEENSonny Not Available Start: 05-19-2024 End: 05-19-2024 Office outpatient visit 25 minutes Ameena Vera [employer] Work Phone: [facility] Comment on above: Type 2 diabetes cory itus with diabetic microalbuminuria, without long-term current use of insulin ([facility]) (Primary Dx); Morbid (severe) obesity due to excess calories ([facility]); Other hyperlipidemia; Body mass index (BMI) 39.0-39.9, adult; JANETT (obstructive sleep apnea); Bilateral lower extremity edema; Migraine with aura and without status migrainosus, not intractable ([facility]); Cigarette nicotine dependence without complication; Hypercalcemia; Essential hypertension; Elevated blood uric acid level; Lumbar back pain; Gastroesophageal reflux disease without esophagitis; Chronic gout of multiple sites, unspecified cause; Acute pain of right knee; Diabetic polyneuropathy associated with type 2 diabetes mellitus ([facility]/HCC) Start: 05-06-2024 End: 05-06-2024 Tomasz Chandler MD Work Phone: [facility] Comment on above: Bilateral lower extr emity edema (Primary Dx) Start: 04-21-2024 End: 04-21-2024 Bamboo flowsheet Za Wilkerson [employer] Work Phone: [facility] Start: 04-21-2024 End: 04-21-2024 Bamboo flowsheet Za Wilkerson [employer] Work Phone: [facility] Start: 04-21-2024 End: 04-21-2024 ambulatory ZA WILKERSON Not Available Start: 04-21-2024 End: 04-21-2024 Office outpatient visit 25 minutes Za Wilkerson [employer] Work Phone: [facility] Comment on above: JANETT (obstructive sle ep apnea) (Primary Dx); Hypersomnia; Snoring; Primary insomnia; Tobacco abuse Start: 03-30-2024 End: 03-30-2024 Bamboo flowsheet Sonam Drake [employer] Work Phone: [facility] Start: 03-30-2024 End: 03-30-2024 Bamboo flowsheet Sonamyazmin Valenciatrick [employer] Work Phone: [facility] Start: 03-30-2024 End: 03-30-2024 Office outpatient visit 15 minutes Alicia Monryo MD Work Phone: [facility] Comment on above: Hidradenitis suppura tiva (Primary Dx); Lentigines; Melanocytic nevus of trunk; Congenital non-neoplastic nevus; History of basal cell carcinoma Start: 03-30-2024 End: 03-30-2024 Refill Jolly Castaneda MA [facility] Comment on above: Type 2 diabetes cory itus with diabetic microalbuminuria, without long-term current use of insulin ([facility]) Start: 03-30-2024 End: 03-30-2024 Office outpatient visit 15 minutes Sonam Drake [employer] Work Phone: [facility] Comment on above: Type 2 diabetes cory itus with diabetic microalbuminuria, without long-term current use of insulin ([facility]) (Primary Dx); Essential hypertension; Other hyperlipidemia ([facility]); JANETT (obstructive sleep apnea); Type 2 diabetes mellitus without complication, without long-term current use of insulin ([facility]) Start: 03-18-2024 End: 03-18-2024 Clinisync Result Encounter Generic External Data Provider [facility] External Department Unsolicited Start: 03-18-2024 End: 03-18-2024 Clinisync Result Encounter Generic External Data Provider [facility] External Department Unsolicited Start: 03-16-2024 End: 03-16-2024 Refill Sonam Drake [employer] Work Phone: [facility] Comment on above: Gastroesophageal ref lux disease without esophagitis Start: 03-09-2024 End: 03-09-2024 Refill Sonam Drake [employer] Work Phone: [facility] Comment on above: Osteoporosis, unspec ified osteoporosis type, unspecified pathological fracture presence ([facility]) Start: 03-03-2024 End: 03-03-2024 Bamboo flowsheet Sonam Drake [employer] Work Phone: [facility] Start: 03-03-2024 End: 03-03-2024 Bamboo flowsheet Sonam Drake [employer] Work Phone: [facility] Start: 03-03-2024 End: 03-03-2024 ambulatory SONAM DRAKE Not Available Start: 03-03-2024 End: 03-03-2024 Office outpatient visit 10 minutes Sonam Drake [employer] Work Phone: [facility] Comment on above: Upper respiratory in fection with cough and congestion (Primary Dx); Lumbar back pain; Migraine with aura and without status migrainosus, not intractable ([facility]); Type 2 diabetes mellitus with diabetic microalbuminuria, without long-term current use of insulin ([facility]); Diabetic polyneuropathy associated with type 2 diabetes mellitus ([facility]); Other hyperlipidemia ([facility]) Start: 01-30-2024 End: 01-30-2024 Refill Jolly Castaneda MA [facility] Comment on above: Lumbar back pain (Pr imary Dx); Type 2 diabetes mellitus with diabetic microalbuminuria, without long-term current use of insulin ([facility]) Start: 01-14-2024 End: 01-14-2024 Refill Jolly Castaneda MA [facility] Comment on above: Lumbar back pain Start: 12-31-2023 End: 12-31-2023 Clinisync Result Encounter Sonam Drake [employer] Work Phone: [facility] External Department Unsolicited Start: 12-31-2023 End: 12-31-2023 Clinisync Result Encounter Sonam Drake [employer] Work Phone: [facility] Unsolicited Start: 12-31-2023 End: 12-31-2023 Office consultation new/estab patient 60 min Sivan Banda DO Work Phone: [facility] [place] [facility] Comment on above: JANETT (obstructive sle ep apnea) (Primary Dx); Hypersomnia; Snoring; Primary insomnia; Tobacco abuse Start: 12-31-2023 End: 12-31-2023 ambulatory SIVAN BANDA Not Available Start: 12-30-2023 End: 12-30-2023 Bamboo flowsheet Sonam Drake [employer] Work Phone: [facility] Start: 12-30-2023 End: 12-30-2023 Bamboo flowsheet Sonam Drake [employer] Work Phone: [facility] Start: 12-30-2023 End: 12-30-2023 Office outpatient visit 15 minutes Sonam Drake [employer] Work Phone: [facility] Comment on above: Type 2 diabetes cory itus with diabetic microalbuminuria, without long-term current use of insulin ([facility]/HCC) (Primary Dx); Essential hypertension; Other hyperlipidemia ([facility]); Snoring; Mixed urge and stress incontinence Start: 12-30-2023 End: 12-30-2023 ambulatory SONAM DRAKE Not Available Start: 12-17-2023 End: 12-17-2023 Refill Jolly Castaneda MA [facility] Comment on above: Migraine with aura a nd without status migrainosus, not intractable (CMS/HCC); Diabetic polyneuropathy associated with type 2 diabetes mellitus (CMS/HCC) Start: 12-17-2023 End: 12-18-2023 Refill Sonam Drake [employer] Work Phone: [facility] Comment on [...] 2 diabetes mellitus (CMS/HCC) Start: 10-04-2023 ambulatory Facility:[facility] Start: 10-03-2023 End: 10-03-2023 Bamboo flowsheet Sonam Drake [employer] Work Phone: [facility] Start: 10-03-2023 End: 10-03-2023 Bamboo flowsheet Sonam Drake [employer] Work Phone: [facility] Start: 10-03-2023 End: 10-03-2023 Office outpatient visit 25 minutes Sonam Drake [employer] Work Phone: [facility] Comment on [...] incontinence; Snoring Start: 04-30-2023 End: 04-30-2023 ambulatory [facility] Work Phone: Start: 04-30-2023 End: 04-30-2023 Patient encounter procedure [facility] Work Phone: Start: 03-21-2023 Orders Only Shaikh Maricel HOLLIS Work Phone: [facility] Comment on above: Diabetic polyneuropa thy associated with type 2 diabetes mellitus (CMS/HCC) (Primary Dx) Start: 03-19-2023 End: 03-19-2023 ambulatory Ana Luisa Calvey Other [employer] Other Start: 03-19-2023 Office outpatient vi sit 15 minutes Ana Luisa Calvey [facility] [place] [facility] Start: 01-23-2023 End: 01-23-2023 ambulatory Ana Luisa Calvey Other [employer] Other Start: 01-23-2023 Office outpatient vi sit 15 minutes Ana Luisa Calvey [facility] [place] [facility] Start: 01-18-2023 End: 01-18-2023 ambulatory Elle Ruthie Other [employer] Other Start: 01-18-2023 Office outpatient vi sit 15 minutes Elle Ruthie [facility] Start: 09-19-2022 End: 09-19-2022 ambulatory Ana Luisajesus Curtis Other [employer] Other Start: 09-19-2022 Telephone encounter Ana Luisa Kirsten [facility] [place] [facility] Start: 07-12-[address] JONATHAN EDWARDS Facili ty:[facility] Start: 06-07-2022 End: 06-08-[address] JONATHAN EDWARDS Facility:[facility] Start: 05-02-2022 End: 05-02-2022 ambulatory Ana Luisa Kirsten Other [employer] Other Start: 05-02-2022 Office outpatient ne w 30 minutes Ana Luisa Calvey [facility] [place] [facility] Start: 04-12-2022 End: 04-13-[address] JONATHAN EDWARDS Facility:[facility] Start: 03-08-2022 End: 03-09-[address] JONATHAN EDWARDS Facility:[facility] Start: 02-16-2022 End: 02-17-[address] JONATHAN EDWARDS Facility:[facility] Start: 02-09-2022 End: 02-10-[address] RICARDO HOLM . Facility:[facility] Start: 11-16-2021 End: 11-17-[address] JONATHAN EDWARDS Facility:[facility] Start: 11-01-2021 End: 11-02-2021 ambulatory CRYS PIERCE . Facility:[facility] Start: 08-30-2021 End: 08-31-2021 ambulatory RAD[facility] Start: 08-30-2021 End: 08-30-2021 Subsequent hospital visit by physician Sr Edwards DO Work Phone: [facility] Comment on above: Routine cervical sme ar Start: 08-16-2021 Encounter for genera l adult medical examination without abnormal findings DR RICARDO HOLM . [facility] Start: 08-09-2021 End: 08-10-2021 Encounter [...] 08-20-2024 Hemoglobin glycosyla anne a1c Ameena Vera [employer] Work Phone: Start: 07-09-2024 ALL BASIC METABOLIC PANEL Ameena Vera [employer] Work Phone: Start: 05-28-2024 Plain radiography of pelvis Start: 05-28-2024 X-ray of right knee, four views Start: 05-21-2024 Radiologic examinati on knee 3 views Ameena Vera [employer] Work Phone: Start: 05-21-2024 ALL CBC WITH AUTO DIFF Ameena Vera [employer] Work Phone: Start: 05-19-2024 Hemoglobin glycosyla anne a1c Ameena Vera [employer] Work Phone: Start: 03-30-2024 Hemoglobin glycosyla anne a1c Sonam Drake [employer] Work Phone: Start: 03-18-2024 MM TOMOSYNTHESIS SCR EENING BI Generic External Data Provider Start: 03-18-2024 Mammography Generic Pr ovider Start: 12-31-2023 ALL CBC WITH AUTO DIFF Sonam Drake [employer] Work Phone: Start: 03-20-2023 Mammography Shaikh Marie calero MD Work Phone: Start: 08-30-2021 Microscopic observat ion [Identifier] in Cervix by Cyto stain Sr House DO Work Phone: Plan of Treatment Date Care Activity Detail Author Start: 03-28-2026 Screening for malignant neoplasm of colon [facility] Start: 03-08-2026 Screening for malignant neoplasm of colon [facility] Start: 05-21-2025 Urine screening for protein Diabetes: Urine Protein Screening [facility] Start: 05-03-2025 End: 05-03-2025 Patient encounter procedure 05/03/2025 1:00 PM EDT [facility] [address] [place] [id number] Kasi Bennett MD [address] [place] [address] [facility] Start: 04-06-2025 End: 04-06-2025 Patient encounter procedure 04/06/2025 1:15 PM EST Office Visit [facility] [address] [place] [phone] Alicia Monroy MD [address] [place] [address] [facility] Start: 03-30-2025 End: 03-30-2025 Patient encounter procedure [facility] Start: 03-18-2025 Screening for malignant neoplasm of breast [facility]ammogram [facility] Start: 02-20-2025 Hemoglobin A1c measurement Diabetes: Hemoglobin A1C [facility] Start: 12-30-2024 Urine screening for protein Diabetes: Urine Protein Screening [facility] Start: 11-23-2024 End: 11-23-2024 Patient encounter procedure 11/23/2024 1:00 PM EDT Office Visit [facility] [address] [place] [address] Ameena Vera, [employer] [address] [place] [address] [facility] Start: 11-18-2024 Hemoglobin A1c measurement Diabetes: Hemoglobin A1C [facility] Start: 11-02-2024 End: 11-02-2025 25-hydroxyvitamin D3 [Mass/volume] in Serum or Plasma Vitamin D 25 hydroxy Total Lab Routine Low serum parathyroid hormone (PTH) Hypercalcemia Vitamin D deficiency Hypomagnesemia Expected: 11/02/2024 (Approximate), Expires: 11/02/2025 [facility] Comment on above: Expected: 11/02/2024 (Approximate), Expi res: 11/02/2025 Start: 11-02-2024 End: 11-02-2025 Magnesium [Mass/volume] in Serum or Plasma Magnesium Lab Routine Low serum parathyroid hormone (PTH) Hypercalcemia Vitamin D deficiency Hypomagnesemia Expected: 11/02/2024 (Approximate), Expires: 11/02/2025 [facility] Work Phone: Comment on above: Expected: 11/02/2024 (Approximate), Expi res: 11/02/2025 Start: 11-02-2024 End: 11-02-2025 Parathyrin.intact and Calcium panel - Serum or Plasma PTH, intact and calcium Lab Routine Low serum parathyroid hormone (PTH) Hypercalcemia Vitamin D deficiency Hypomagnesemia Expected: 11/02/2024 (Approximate), Expires: 11/02/2025 [facility] Comment on above: Expected: 11/02/2024 (Approximate), Expi res: 11/02/2025 Start: 11-02-2024 End: 11-02-2025 Renal function panel Renal function panel Lab Routine Low serum parathyroid hormone (PTH) Hypercalcemia Vitamin D deficiency Hypomagnesemia Expected: 11/02/2024 (Approximate), Expires: 11/02/2025 [facility] Comment on above: Expected: 11/02/2024 (Approximate), Expi res: 11/02/2025 Start: 11-02-2024 End: 11-02-2024 Patient encounter procedure [facility] Comment on above: Arrived Start: 10-26-2024 End: 10-26-2024 Patient encounter procedure 10/26/2024 1:20 PM EDT Office Visit [facility] [address] [place] [phone] Za Wilkerson NP [address] [place], [place] [facility] Start: 10-19-2024 End: 10-19-2024 Patient encounter procedure 10/19/2024 11:30 AM EDT Office Visit [facility] [address] [place] [phone] Ameena Vera, RONALDO [address] [place] [phone] [facility] Start: 10-12-2024 Influenza vaccination [facility] Start: 09-30-2024 End: 09-30-2024 Patient encounter procedure [facility] Start: 09-27-2024 Hemoglobin A1c measurement Diabetes: Hemoglobin A1C [facility] Start: 08-30-2024 Screening for malignant neoplasm of cervix [facility] Start: 08-20-2024 End: 08-20-2024 Patient encounter procedure 08/20/2024 10:30 AM EDT Office Visit [facility] [address] [place] [phone] Ameena Vera, RONALDO [address] [place] [phone] [facility] Start: 07-29-2024 End: 07-29-2025 25-hydroxyvitamin D3 [Mass/volume] in Serum or Plasma Vitamin D 25 hydroxy Total Lab Routine Low serum parathyroid hormone (PTH) Hypercalcemia Vitamin D deficiency Expected: 07/29/2024 (Approximate), Expires: 07/29/2025 [facility] Comment on above: Expected: 07/29/2024 (Approximate), Expi res: 07/29/2025 Start: 07-29-2024 End: 07-29-2025 Magnesium [Mass/volume] in Serum or Plasma Magnesium Lab Routine Low serum parathyroid hormone (PTH) Hypercalcemia Expected: 07/29/2024 (Approximate), Expires: 07/29/2025 [facility] Work Phone: Comment on above: Expected: 07/29/2024 (Approximate), Expi res: 07/29/2025 Start: 07-29-2024 End: 07-29-2025 Parathyrin.intact and Calcium panel - Serum or Plasma PTH, intact and calcium Lab Routine Low serum parathyroid hormone (PTH) Hypercalcemia Expected: 07/29/2024 (Approximate), Expires: 07/29/2025 [facility] Comment on above: Expected: 07/29/2024 (Approximate), Expi res: 07/29/2025 Start: 07-29-2024 End: 07-29-2024 Patient encounter procedure [facility] Comment on above: Low serum parathyroid hormone (PTH) Start: 07-29-2024 End: 07-29-2025 Renal function panel Renal function panel Lab Routine Low serum parathyroid hormone (PTH) Hypercalcemia Expected: 07/29/2024 (Approximate), Expires: 07/29/2025 [facility] Comment on above: Expected: 07/29/2024 (Approximate), Expi res: 07/29/2025 Start: 07-26-2024 Urine screening for protein Diabetes: Urine Protein Screening [facility] Start: 07-03-2024 End: 06-03-2025 25-hydroxyvitamin D3 [Mass/volume] in Serum or Plasma Vitamin D 25 hydroxy Lab Routine Hypercalcemia Expected: 07/03/2024 (Approximate), Expires: 06/03/2025 [facility] Comment on above: Expected: 07/03/2024 (Approximate), Expi res: 06/03/2025 Start: 07-03-2024 End: 06-03-2025 Basic metabolic 1998 panel - Serum or Plasma Basic metabolic panel Lab Routine Hypercalcemia Low serum parathyroid hormone (PTH) Expected: 07/03/2024 (Approximate), Expires: 06/03/2025 [facility] Comment on above: Expected: 07/03/2024 (Approximate), Expi res: 06/03/2025 Start: 07-03-2024 End: 06-03-2025 Parathyrin.intact [Mass/volume] in Serum or Plasma PTH, intact Lab Routine Low serum parathyroid hormone (PTH) Expected: 07/03/2024 (Approximate), Expires: 06/03/2025 [facility] Work Phone: Comment on above: Expected: 07/03/2024 (Approximate), Expi res: 06/03/2025 Start: 06-25-2024 End: 06-25-2024 Patient encounter procedure [facility] Start: 05-22-2024 End: 05-22-2025 Parathyrin.intact [Mass/volume] in Serum or Plasma PTH, intact Lab Routine Hypercalcemia Expected: 05/22/2024 (Approximate), Expires: 05/22/2025 [facility] Work Phone: Comment on above: Expected: 05/22/2024 (Approximate), Expi res: 05/22/2025 Start: 05-19-2024 End: 05-19-2025 25-hydroxyvitamin D3 [Mass/volume] in Serum or Plasma Vitamin D 25 hydroxy Lab Routine Hypercalcemia Expected: 05/19/2024 (Approximate), Expires: 05/19/2025 [facility] Comment on above: Expected: 05/19/2024 (Approximate), Expi res: 05/19/2025 Start: 05-19-2024 End: 05-19-2025 CBC W Auto Differential panel - Blood CBC and differential Lab Routine JANETT (obstructive sleep apnea) Cigarette nicotine dependence without complication Expected: 05/19/2024 (Approximate), Expires: 05/19/2025 [facility] Comment on above: Expected: 05/19/2024 (Approximate), Expi res: 05/19/2025 Start: 05-19-2024 End: 05-19-2025 Comprehensive metabolic 2000 panel - Serum or Plasma Comprehensive metabolic panel Lab Routine Other hyperlipidemia Bilateral lower extremity edema Type 2 diabetes mellitus with diabetic microalbuminuria, without long-term current use of insulin ([facility]) Hypercalcemia Essential hypertension Expected: 05/19/2024 (Approximate), Expires: 05/19/2025 [facility] Comment on above: Expected: 05/19/2024 (Approximate), Expi res: 05/19/2025 Start: 05-19-2024 End: 05-19-2025 Lipid 1996 panel - Serum or Plasma Lipid panel Lab Routine Other hyperlipidemia Expected: 05/19/2024 (Approximate), Expires: 05/19/2025 [facility] Work Phone: Comment on above: Expected: 05/19/2024 (Approximate), Expi res: 05/19/2025 Start: 05-19-2024 End: 05-19-2025 Microalbumin/Creatinine panel in random Urine Microalbumin / creatinine, urine ratio Lab Routine Type 2 diabetes mellitus with diabetic microalbuminuria, without long-term current use of insulin ([facility]) Essential hypertension Expected: 05/19/2024 (Approximate), Expires: 05/19/2025 [facility] Comment on above: Expected: 05/19/2024 (Approximate), Expi res: 05/19/2025 Start: 05-19-2024 End: 05-19-2025 Parathyrin.intact [Mass/volume] in Serum or Plasma PTH, intact Lab Routine Hypercalcemia Expected: 05/19/2024 (Approximate), Expires: 05/19/2025 [facility] Comment on above: Expected: 05/19/2024 (Approximate), Expi res: 05/19/2025 Start: 05-19-2024 End: 05-19-2025 Urate [Mass/volume] in Serum or Plasma Uric acid Lab Routine Elevated blood uric acid level Expected: 05/19/2024 (Approximate), Expires: 05/19/2025 [facility] Comment on above: Expected: 05/19/2024 (Approximate), Expi res: 05/19/2025 Start: 05-19-2024 End: 05-19-2025 Urinalysis complete panel - Urine Urinalysis with reflex microscopic (clean catch) Lab Routine Type 2 diabetes mellitus with diabetic microalbuminuria, without long-term current use of insulin ([facility]) Cigarette nicotine dependence without complication Essential hypertension Elevated blood uric acid level Expected: 05/19/2024 (Approximate), Expires: 05/19/2025 [facility] Comment on above: Expected: 05/19/2024 (Approximate), Expi res: 05/19/2025 Start: 05-19-2024 End: 05-19-2025 XR Knee - right 3 Views XR knee 3 views right Imaging Routine Acute pain of right knee Expected: 05/19/2024 (Approximate), Expires: 05/19/2025 [facility] Comment on above: Expected: 05/19/2024 (Approximate), Expi res: 05/19/2025 Start: 05-19-2024 End: 05-19-2024 Patient encounter procedure 05/19/2024 11:00 AM EDT Office Visit [facility] [address] [place] [address] Ameena Vera NP [address] [place] [address] [facility] Start: 04-21-2024 End: 04-21-2024 Patient encounter procedure 04/21/2024 1:00 PM EDT Office Visit [facility] [place] [address] [place] [phone] Za Wilkerson NP [address] [place] [address] [facility] Start: 03-30-2024 End: 03-30-2024 Patient encounter procedure 03/30/2024 11:05 AM EST Office Visit [facility] [address] [place] [address] Alicia Monroy MD [address] [place] [address] [facility] Start: 03-26-2024 End: 03-26-2024 Patient encounter procedure 03/26/2024 2:00 PM EST Office Visit [facility] [address] [place] [address] Sonam Drake NP [address] [place] [address] [facility] Start: 03-24-2024 End: 03-24-2024 Patient encounter procedure [facility] [place] [address] Start: 03-20-2024 Screening for malignant neoplasm of breast Mammogram [facility] Start: 02-27-2024 End: 02-27-2024 Patient encounter procedure 02/27/2024 11:35 AM EST Office Visit [facility] [address] [place] [phone] Alicia Monroy MD [address] [place] [address] [facility] Start: 02-25-2024 End: 02-25-2024 Patient encounter procedure 02/25/2024 3:30 PM EST Office Visit [facility] [address] [place] [address] Sonam Drake NP [address] [place] [address] [facility] Start: 02-21-2024 Medicare Annual Wellness (AWV) Medicare Annual Wellness (AWV) [facility] Start: 02-12-2024 Glaucoma screening Diabetes: Retinopathy Screening [facility] Start: 01-25-2024 Hemoglobin A1c measurement Diabetes: Hemoglobin A1C [facility] Start: 12-31-2023 End: 12-30-2024 Polysomnography [facility]ography [facility] Routine JANETT (obstructive sleep apnea) Expected: 12/31/2023 (Approximate), Expires: 12/30/2024 [facility] Work Phone: Comment on above: Expected: 12/31/2023 (Approximate), Expi res: 12/30/2024 Start: 12-31-2023 End: 12-31-2023 Patient encounter procedure 12/31/2023 10:00 AM EST Office Visit [facility] [place] [address] [place] [address] Sivan Banda DO [address] [place] [id number] [facility] [place] [address] Start: 12-30-2023 End: 12-29-2024 CBC W Auto Differential panel - Blood CBC and differential Lab Routine Type 2 diabetes mellitus with diabetic microalbuminuria, without long-term current use of insulin ([facility]) Essential hypertension Expected: 12/30/2023 (Approximate), Expires: 12/29/2024 [facility] Comment on above: Expected: 12/30/2023 (Approximate), Expi res: 12/29/2024 Start: 12-30-2023 End: 12-29-2024 Comprehensive metabolic 2000 panel - Serum or Plasma Comprehensive metabolic panel Lab Routine Type 2 diabetes mellitus with diabetic microalbuminuria, without long-term current use of insulin (CMS/HCC) Essential hypertension Expected: 12/30/2023 (Approximate), Expires: 12/29/2024 [facility] Comment on above: Expected: 12/30/2023 (Approximate), Expi res: 12/29/2024 Start: 12-30-2023 End: 12-29-2024 Hemoglobin A1c/Hemoglobin.total in Blood Hemoglobin A1c Lab Routine Type 2 diabetes mellitus with diabetic microalbuminuria, without long-term current use of insulin (CMS/HCC) Expected: 12/30/2023 (Approximate), Expires: 12/29/2024 [facility] Comment on above: Expected: 12/30/2023 (Approximate), Expi res: 12/29/2024 Start: 12-30-2023 End: 12-30-2023 Patient encounter procedure 12/30/2023 10:30 AM EST Office Visit [facility] [address] [place] [address] Sonam Drake NP [address] [place] [address] [facility] Start: 11-04-2023 End: 11-04-2023 Patient encounter procedure 11/04/2023 2:30 PM EDT Office Visit [facility] [place] [facility] [address] [place] [address] Sivan BandaDO [address] [place] [address] [facility] [place] [address] Start: 10-13-2023 Influenza vaccination Influenza Vaccine (#1) [facility] Start: 08-11-2023 Influenza vaccination Influenza Vaccine (#1) [facility] Comment on above: Postponed from 10/12/2022 (Patient Refus ed) Start: 05-02-2023 End: 05-02-2023 Patient encounter procedure 05/02/2023 2:00 PM EDT Office Visit [facility] [address] [place] [address] Shaikh Connelly MD [address] [place] [address] [facility] Start: 02-17-2023 Hemoglobin A1c measurement Diabetes: Hemoglobin A1C [facility] Start: 09-04-2022 End: 09-04-2022 Patient encounter procedure 09/04/2022 Office Visit Obstetrics and Gynecology Radha Barclay, TRAFFIC WORKFORCE REPRESENTATIVE - CNM [address] [place] [address] [facility] Start: 10-12-2021 Influenza vaccination Flu vaccine (#1) [facility] Start: 10-21-2013 Screening for malignant neoplasm of breast Breast cancer screen [facility] Start: 10-21-2013 Shingles vaccine (1 of 2) Shingles vaccine (1 of 2) [facility] Start: 10-21-2008 [facility] Start: 2003 Lipid panel [facility] Start: 10-21-1998 Diabetes screen Diabetes screen [facility] Start: 10-21-1993 Screening for malignant neoplasm of cervix [facility] Start: 10-21-1982 DTaP/Tdap/Td vaccine (1 - Tdap) DTaP/Tdap/Td vaccine (1 - Tdap) [facility] Start: 10-21-1982 Urine screening for protein Diabetes: Urine Protein Screening [facility] Start: 10-21-1981 Hepatitis C screening Hepatitis C screen [facility] Start: 10-21-1978 HIV screening [facility] Start: 1975 Depression Screen Depression Screen [facility] Start: 04-20-1964 COVID-19 Vaccine (#1) COVID-19 Vaccine (#1) [facility] Start: 1963 Screening for malignant neoplasm of colon [facility] End: 08-30-2021 Cytopathology procedure, preparation of smear, genital source PAP SMEAR Lab Routine Routine cervical smear 1 Occurrences starting 08/30/2021 until 08/30/2021 [facility] Work Phone: Comment on above: 1 Occurrences starting 08/30/2021 until 08/30/2021 Microalbumin/Creatin ine panel in random Urine Microalbumin / creatinine urine ratio Lab Routine Type 2 diabetes mellitus with diabetic microalbuminuria, without long-term current use of insulin ([facility]) Essential hypertension Ordered: 12/30/2023 [facility] Work Phone: Comment on above: Ordered: 12/30/2023 Immunizations Immunization Date Immunization Notes Care Provider Tima garcia 01-14-2017 influenza, injectabl e, quadrivalent, preservative [facility] 01-14-2017 influenza virus vaccine, unspecified formulation Sonam Drake NP Work Phone: [facility] Payers Date Payer Category Payer Self-pay [id number] 2022 Private Health Insurance [id number] 2022 Unknown [id number] [id number] 2022 Unknown 2022 2012 Medicare [id number]. [id number] 1963 Unknown [id number] 2.16.8 40.1.911196.3.579.2.173 1963 Unknown [id number] 2.16.84 0.1.626366.3.579.2.593 1963 Unknown [id number] 2.16.84 0.1.058166.3.579.2.593 1963 Unknown [id number] 2.16.84 0.1.847721.3.579.2.593 1963 Unknown [id number] 2.16.84 0.1.410271.3.579.2.593 1963 Unknown [id number] 2.16.84 0.1.269361.3.579.2.593 1963 Unknown [id number] 2.16.84 0.1.998291.3.579.2.593 1963 Unknown [id number] 2.16.84 0.1.204932.3.579.2.593 1963 Unknown [id number] 2.16.84 0.1.103983.3.579.2.593 1963 Unknown [id number] 2.16.84 0.1.256547.3.579.2.593 1963 Unknown [id number] 2.16.84 0.1.047057.3.579.2.593 1963 Unknown [id number] 2.16.84 0.1.831328.3.579.2.593 1963 Unknown [id number] 2.16.84 0.1.765971.3.579.2.593 1963 Unknown [id number] 2.16.84 0.1.756894.3.579.2.593 1963 Unknown [id number] 2.16.84 0.1.267717.3.579.2.593 1963 Unknown [id number] 2.16.84 0.1.334535.3.579.2.593 1963 Unknown [id number] 2.16.84 0.1.420612.3.579.2.593 1963 Unknown [id number] 2.16. 840.1.504946.3.579.2.196 1963 Unknown [id number] 2.16. 840.1.609805.3.579.2.196 1963 Unknown [id number] 2.16.8 40.1.050459.3.579.2.1259 1963 Unknown [id number] 2.16.8 40.1.755714.3.579.2.1259 1963 Unknown [id number] 2.16.8 40.1.544379.3.579.2.9 1963 Unknown [id number] 2.16.84 0.1.969878.3.579.2.1259 1963 Unknown [id number] 2.16.84 0.1.283457.3.579.2.1259 1963 Unknown [id number] 2.16.84 0.1.633081.3.579.2.1259 1963 Unknown [id number] 2.16.84 0.1.541633.3.579.2.125 1963 Unknown [id number] 2.16.84 0.1.378745.3.579.2.1259 1963 Unknown [id number] 2.16.84 0.1.316861.3.579.2.1259 1963 Unknown [id number] 2.16.84 0.1.322420.3.579.2.1259 1959 Medicare [id number] 1.2.840.712259.1.13.239.2.7.3.032316.315 1959 Unknown [id number] 1.2.840.230864.1.13.239.2.7.3.595079.315 1959 Unknown [id number] 2.16.8 40.1.693174.19 Medicare Medicare [id number] Unknown [id number] 2.16.8 40.1.687417.3.579.2.531 Social History Date Type Detail Facility Start: 08-30-2021 End: 04-21-2024 Tobacco smoking status UTIS Smokes tobacco daily [facility] Phone: History of tobacco use Cigarette Smoker [facility] Phone: Start: 08-30-2021 End: 04-21-2024 Tobacco use and exposure Smokeless tobacco non-user [facility] Phone: Start: 08-30-2021 Alcohol intake Current drinke r of alcohol (finding) [facility] Phone: Start: 08-30-2021 History SDOH Alcohol Comment occasional [facility] Phone: Start: 1965 Sex Assigned At Not on file [facility] Phone: Start: 08-20-2021 End: 08-30-2021 Exposure to SARS-CoV-2 (event) Not sure [employer] Start: 02-25-2023 End: 10-02-2023 Sex Assigned At [facility] Start: 01-29-2023 End: 05-20-2024 Tobacco smoking status UTIS Ex-smoker [facility] History of tobacco use [...] Start: 05-29-2024 Sex Female (finding) [facility] Medical Equipment Procedure Code Equipment Code Equipment Origin al Text Equipment Identifier Dates [id number] Start: 06-08-2021 End: 04-21-2024 Clinical Notes 06-20-2021 to 11-02-2024 Kasi Bennett MD - 11/02/2024 10:10 AM Brady Vera NP - 08/20/2024 11:22 AM Brady Vera NP - 08/20/2024 10:30 AM REMY NARVAEZ - 08/20/2024 10:30 AM EDTPatient Instructions Note Date & Type Note Facility 11-02-2024 History of Presen t illness Narrative Karina De Oliveira is a 59 y.o. female No ref. provider found presents with chief complaint of Follow-up (PTH LAB) HPI: IM : 10/2024 Follow-up visit 11/02/2024 calcium back to normal 8.7 ( 8.7-10.3) PTH 30 ( 15-65), vitamin-D 80, magnesium in the low side [...] MORE THAN 3 TABLETS DAILY Continuous Glucose Manager Of Merchandising (Dexcom G7 Manager Of Merchandising) device 1 each, Does not apply, Continuous [...] Wt 208 lb SpO2 95% BMI 40.62 kg/m Smoking Status Every Day BSA 2 m Physical Exam Constitutional: Appearance: Normal appearance. [...] months (around 05/02/2025). documented in this encounter [facility] 08-20-2024 History of Presen t illness Narrative [...] 6.3%, 94% TIR , 4% high 30 [id number], 6.3%m 93% TIR, and 5% high, 1 [...] MORE THAN 3 TABLETS DAILY Continuous Glucose Manager Of Merchandising (Dexcom G7 Manager Of Merchandising) device 1 each, Does not apply, Continuous [...] long-term current use of insulin ([facility]) - Primary Check blood sugars daily, [...] of the risks of continued smoking: stroke, [place], all forms of cancer, lung disease, and [...] of the risks of continued smoking: stroke, [place], all forms of cancer, lung disease, and [...] Current meds: none documented in this encounter [facility] 08-20-2024 Telephone encount er Note Please call [facility] [place] for copy of diabetic eye exam [place] [facility] 08-20-2024 Miscellaneous Notes Formattin g of this note might be different from the original. Please call [facility] [place] for copy of diabetic eye exam [place] documented in this encounter [facility] 08-20-2024 Instructions Ameena Vera NP - 08/20/2024 10:30 AM EDT Furosemide every other day 1/2 tablet documented in this encounter [facility] 07-29-2024 History of Presen t illness Narrative [...] MORE THAN 3 TABLETS DAILY Continuous Glucose Manager Of Merchandising (Dexcom G7 Manager Of Merchandising) device 1 each, Does not apply, Continuous [...] months (around 09/28/2024). documented in this encounter [facility] 05-28-2024 Evaluation note Diagnosis Onset Date Resolution Primary osteoarthritis of right knee acute May 28, 2024 12:55pm [facility] Work Phone: 1(394) 478-358404-11-2025 History of Present illness Narrative* Ameena Vera NP - 05/22/2024 7:25 AM EDT par documented in this encounterCarondelet [id number] History of Present illness Narrative* Ameena Vera [...] orthopedic surgeon in the past back in [place] for that knee however she does not remember who. Fast sugars average 113 * Ameena Vera, EMBEDDED LINUX DEVELOPER - 05/19/2024 11:00 AM EDT Images from [...] orthopedic surgeon in the past back in [place] for that knee however she does not [...] MORE THAN 3 TABLETS DAILY Continuous Glucose Manager Of Merchandising (Dexcom G7 Manager Of Merchandising) device 1 each, Does not apply, Continuous [...] microalbuminuria, without long-term current use of insulin ([facility]) Check blood sugars daily, notify if [...] of the risks of continued smoking: stroke, [place], all forms of cancer, lung disease, and [...] of the risks of continued smoking: stroke, [place], all forms of cancer, lung disease, and [...] aura and without status migrainosus, not intractable ([facility]/HCC) Current meds: leti jensente * Ameena Vera NP - 05/19/2024 6:51 AM EDTAssociated Problem(s): Type 2 diabetes mellitus with diabetic microalbuminuria, without long-term current use of insulin ([facility]) Check blood sugars daily, notify if [...] that supplies your machine and tubing/filters etc: [facility] Doctor that manages your JANETT: Dr Banda documented in this encounterCarondelet [id number] Instructions* Patient Instructions* Ameena Vera NP - 05/19/2024 11:00 AM EDT Fasting labs Get xray knee Referral to Dr Darren Orona documented in this encounterCarondelet [id number] Telephone encounter Note* Telephone Encounter - Jolly Castaneda MA - 03/30/2024 11:44 AM EST Pt's sensor fell off, and she needs them refilled please [facility] [id number] Miscellaneous Notes* Telephone Encounter - Jolly Castaneda MA - 03/30/2024 11:44 AM EST Pt's sensor fell off, and she needs them refilled please documented in this encounterCarondelet [id number] History of Present illness Narrative* Alicia Monroy [...] Examined Right arm Examined Patient wearing nail english, Denies dark streaks under finger nails, Denies [...] 1 year skin check documented in this encounterCarondelet [id number] History of Present illness Narrative* Sonam Drake NP - 03/30/2024 10:04 AM ESTAssociated Problem(s): JANETT (obstructive sleep apnea) Saw Neurology- was diagnosed with severe JANETT. Has been wearing CPAP religiously. Feels more well rested when wearing. Continue current regimen as directed by neurology. * Sonam Drake NP - 03/30/2024 9:58 AM ESTAssociated Problem(s): Other hyperlipidemia (CMS/[facility]) Crestor 20mg Denies myalgias Continue current regimen. * Sonam Drake NP - 03/30/2024 9:58 AM ESTAssociated Problem(s): Essential hypertension BP consistently under goal in office. Not on any medication regimen. Continue to monitor closely. * Sonam Drake NP - 03/30/2024 9:58 AM ESTAssociated Problem(s): Type 2 diabetes mellitus with diabetic microalbuminuria, without long-term current use of insulin ([facility]) Currently taking Metformin Bid and Ozempic [...] long-term current use of insulin (CMS/[facility]) - Primary Currently taking Metformin Bid [...] complication, without long-term current use of insulin ([facility]) documented in this [facility]02-17-2025 Instructions* Patient Instructions* Sonam Drake NP - [...] carbohydrates, and simple sugars. documented in this [facility]01-21-2025 History of Present illness Narrative* Sonam Drake [...] microalbuminuria, without long-term current use of insulin ([facility]) Relevant Medications metFORMIN (Glucophage) 500 MG tablet Continuous Glucose Manager Of Merchandising (Dexcom G7 Manager Of Merchandising) device Continuous Glucose Sensor (Dexcom G7 Sensor) [...] (Lyrica) 75 MG capsule documented in this [facility]01-21-2025 Instructions* Patient Instructions* Sonam Drkae NP - 03/03/2024 10:00 AM EST Continue [...] 1500 calories per day. documented in this [facility]12-19-2024 Telephone encounter Note* Telephone Encounter - Jolly Castaneda MA - 01/30/2024 10:38 AM EST GIOVANNA:12/30/2023 NOV:03/26/2024 [facility] [id number] Miscellaneous Notes* Telephone Encounter - Jolly Castaneda MA - 01/30/2024 10:38 AM EST GIOVANNA:12/30/2023 NOV:03/26/2024 documented in this [facility]12-03-2024 Telephone encounter Note* Telephone Encounter - Jolly Castaneda MA - 01/14/2024 8:34 AM EST GIOVANNA:12/30/2023 NOV:03/26/2023 [id number] Miscellaneous Notes* Telephone Encounter - Jolly Castaneda MA - 01/14/2024 8:34 AM EST GIOVANNA:12/30/2023 NOV:03/26/2023 documented in this [facility]11-19-2024 History of Present illness Narrative* Sivan Banda DO - 12/31/2023 10:00 AM EST Images from the original note were not included. No chief complaint on file. Subjective SLEEP CONSULT REFERRAL: Snoring, concern for JANETT, needing sleep study - labs @ [facility]; referral received from Sonam Drake CNP. [...] was counseled on the risks of stroke, [place], and sudden with JANETT, along with the [...] to clinic: 2 months documented in this encounterCarondelet [id number] History of Present illness Narrative* Sonam Drake [...] microalbuminuria, without long-term current use of insulin ([facility]) Currently taking Metformin Bid and Ozempic [...] R ALBUMIN GLOBULIN RATIO 0.8 Resulting Agency [facility] DMII: Metformin Bid and Ozempic Most [...] microalbuminuria, without long-term current use of insulin ([facility]) - Primary Currently taking Metformin Bid [...] JANETT. First appointment tomorrow. documented in this encounterCarondelet [id number] Instructions* Patient Instructions* Sonam Drake NP - 12/30/2023 10:30 AM EST FASTING labs ordered. Nothing to eat or drink for 12 hours prior to blood draw. Water and black coffee ok. Call if you need anything! documented in this [facility]11-05-2024 Telephone encounter Note* Telephone Encounter - Jolly Castaneda MA - 12/17/2023 3:39 PM EST GIOVANNA:10/03/2023 NOV:12/30/2023 [facility] [id number] Miscellaneous Notes* Telephone Encounter - Jolly Castaneda MA - 12/17/2023 3:39 PM EST GIOVANNA:10/03/2023 NOV:12/30/2023 documented in this [facility]08-22-2024 History of Present illness Narrative* Sonam Drake [...] microalbuminuria, without long-term current use of insulin ([facility]) Metformin Bid and Ozempic Most recent [...] long-term current use of insulin (CMS/[facility]) Relevant Medications semaglutide (Ozempic, 1 MG/DOSE,) 4 MG/3ML solution pen-injector Diabetic polyneuropathy associated with type 2 diabetes mellitus (CMS/HCC) Relevant Medications pregabalin (Lyrica) 75 MG capsule documented in this [facility]08-22-2024 Instructions* Patient Instructions* Sonam Drake NP - [...] if you need anything! documented in this [facility]02-06-2024 Evaluation note* Encounter Date Diagnosis Assessment Notes [...] Left hand pain (ICD- 10 - M79.642) [employer] Other 12-13-2023 Evaluation note* Encounter Date Diagnosis [...] noted. Patient will f/u in 4 weeks. [employer] Other 12-08-2023 Evaluation note* Encounter Date Diagnosis [...] left hand x-ray that was performed at [facility] which revealed degenerative changes in the hand as well as a remote avulsion fracture of the thumb. Patient states her family doctor is treating her for gout in her hand. Jan, History of gout (ICD-10 - Z87.39) Jan, Other Gout material w as printed [employer] Other 08-09-2023 Evaluation note* Encounter Date Diagnosis Assessment Notes Treatment Notes Treatment Clinical Notes Sep, Right wrist pain (ICD-10 - M25.531) [employer] Other 04-27-2023 NoteCONSULTATION CONSULTATION DATE: 06/07/2022 TO: [...] our patients to inform us about any vwje-ndl-bdzdsct medications or herbal remedies/nutritional supplements/alternative remedies. 2. [...] treatment options with their primary care provider.[facility] [id number] Evaluation note * Encounter Date Diagnosis Assessment [...] understanding and is agreeable to treatment plan. [employer] Other 01-26-2023 NoteCONSULTATION PROCEDURE DATE: 03/08/2022 PREOPERATIVE [...] will be followed up in the clinic.[facility] [id number] NotePROCEDURE: XR KNEE LT 4V or > [...] by: PATTIE SALTER Date: 2022-02-16 11:29[facility]12-30-2022 NoteCONSULTATION CONSULTATION DATE: 02/09/2022 HISTORY OF [...] office today. Patient agrees with this plan.[facility] [id number] NotePROCEDURE: XR WRIST RT MIN 3 V COMPARISON: None. HISTORY: Injury of right wrist FINDINGS: BONES:No acute fracture or dislocation. Corticated bone fragment identified along the first carpometacarpal joint [degenerative in nature SOFT TISSUES:Moderate diffuse soft tissue swelling EFFUSION:None visible. OTHER: Negative. IMPRESSION: Soft tissue swelling, no acute fracture Electronically authenticated by: RYAN GOLDMAN Date: 2021-11-16 18:59[facility] [id number] NoteCONSULTATION CONSULTATION DATE: 11/01/2021 HISTORY OF PRESENT [...] otherwise indicated. Patient agrees with this plan.[facility] [id number] NoteCONSULTATION PROCEDURE DATE: 11/01/2021 PRE AND POSTOPERATIVE [...] will be followed up in the clinic.[facility] [id number] NoteCONSULTATION PROCEDURE DATE: 08/09/2021 PREOPERATIVE DIAGNOSIS: Bilateral [...] will be followed up in the clinic. [facility] Signed and Approved by: CRYS PIERCE . 08/10/2021 13:37:00[facility] [id number] NoteCONSULTATION CONSULTATION DATE: 07/19/2021 HISTORY OF PRESENT [...] injections. Patient acknowledges and all questions answered. [facility] Signed and Approved by: CRYS PIERCE . 07/20/2021 10:33:00[facility]05-25-2022 NotePROCEDURE: XR FOOT RT MIN 3 [...] by: PATTIE SALTER Date: 2021-07-05 11:11[facility]05-10-2022 NoteCONSULTATION CONSULTATION DATE: 06/20/2021 CHIEF COMPLAINT: [...] like to proceed. CC: Jonathan Edwards M.D. [facility] Signed and Approved by: DR RICARDO HOLM . 06/27/2021 10:40:00[facility] HospitalEvaluation [facility]* Diagnosis Routine cervical smear Screening for malignant neoplasm of the cervix documented in this encounter [facility] Work Phone: evaluation note* Diagnosis Diabetic polyneuropathy associated with type 2 diabetes mellitus (CMS/HCC)- Primary documented in this encounter [facility] HealthEvaluation noteNo assessment information availableMemorial Hospital Work Phone: Evaluation note* Diagnosis Encounter [...] with routine healing, subsequent encounter Other hyperlipidemia ([facility]/HCC) Hyperuricemia Other abnormal blood chemistry Osteoporosis, unspecified osteoporosis type, unspecified pathological fracture presence (CMS/[facility]) Diabetic polyneuropathy associated with type 2 diabetes mellitus (CMS/HCC) Gastroesophageal reflux disease without esophagitis Esophageal reflux Migraine with aura and without status migrainosus, not intractable (CMS/[facility]) Hospital discharge follow-up Other follow-up examination Type 2 diabetes mellitus with diabetic microalbuminuria, without long-term current use of insulin ([facility]/HCC)- Primary Other hyperlipidemia (CMS/HCC) Essential hypertension Unspecified essential hypertension Bilateral lower extremity edema Lumbar back pain- Primary Lumbago Hospital discharge follow-up Other follow-up examination Essential hypertension- Primary Unspecified essential hypertension Type 2 diabetes mellitus with diabetic microalbuminuria, without long-term current use of insulin ([facility]) Morbid (severe) obesity due to excess calories (E66.01) Other hyperlipidemia (CMS/HCC) Lumbar back pain Lumbago Type 2 diabetes mellitus without complication, without long-term current use of insulin ([facility]/HCC) Diabetic polyneuropathy associated with type 2 diabetes mellitus ([facility]/HCC) Mixed urge and stress incontinence Mixed [...] complication, without long-term current use of insulin ([facility]) Upper respiratory tract infection, unspecified type URTI (acute upper respiratory infection) Acute upper respiratory infections of unspecified site Migraine with aura and without status migrainosus, not intractable ([facility]/HCC)- Primary Type 2 diabetes mellitus without complication, without long-term current use of insulin ([facility]/HCC) Morbid (severe) obesity due to excess [...] healing, subsequent encounter Other hyperlipidemia (CMS/[facility]) Hyperuricemia Other abnormal blood chemistry Osteoporosis, unspecified osteoporosis type, unspecified pathological fracture presence (CMS/HCC) Diabetic polyneuropathy associated with type 2 diabetes mellitus (CMS/HCC) Gastroesophageal reflux disease without esophagitis Esophageal reflux Migraine with aura and without status migrainosus, not intractable ([facility]) Hospital discharge follow-up Other follow-up examination [...] complication, without long-term current use of insulin ([facility]) Diabetic polyneuropathy associated with type 2 diabetes mellitus (CMS/HCC) Mixed urge and stress incontinence Mixed incontinence urge and stress (male)(female) Snoring Other dyspnea and respiratory abnormality Encounter for long-term (current) use of high-risk medication Encounter for long-term (current) use of other medications Type 2 diabetes mellitus with diabetic microalbuminuria, without long-term current use of insulin ([facility])- Primary Essential hypertension Unspecified essential hypertension [...] complication, without long-term current use of insulin ([facility]) Diabetic polyneuropathy associated with type 2 diabetes mellitus ([facility]) Mixed urge and stress incontinence Mixed incontinence urge and stress (male)(female) Snoring Other dyspnea and respiratory abnormality Encounter for long-term (current) use of high-risk medication Encounter for long-term (current) use of other medications Type 2 diabetes mellitus with diabetic microalbuminuria, without long-term current use of insulin ([facility])- Primary Essential hypertension Unspecified essential hypertension Other hyperlipidemia ([facility]) Snoring Other dyspnea and respiratory abnormality Mixed urge and stress incontinence Mixed incontinence urge and stress (male)(female) Lumbar back pain Lumbago [facility] Diagnosis Essential hypertension- Primary Unspecified essential hypertension Type 2 diabetes mellitus with diabetic microalbuminuria, without long-term current use of insulin ([facility]) Morbid (severe) obesity due to excess calories (E66.01) Other hyperlipidemia ([facility]) Lumbar back pain Lumbago Type 2 diabetes mellitus without complication, without long-term current use of insulin ([facility]) Diabetic polyneuropathy associated with type 2 diabetes mellitus ([facility]) Mixed urge and stress incontinence Mixed incontinence urge and stress (male)(female) Snoring Other dyspnea and respiratory abnormality [facility]* Diagnosis Gout, unspecified cause, unspecified chronicity, unspecified site [facility]* Diagnosis Diabetic polyneuropathy associated with type 2 diabetes mellitus ([facility]) [facility]* Diagnosis Encounter for screening mammogram for breast cancer- Primary Encounter for screening for malignant neoplasm of colon Type 2 diabetes mellitus without complication, without long-term current use of insulin ([facility]) Upper respiratory tract infection, unspecified type URTI (acute upper respiratory infection) Acute upper respiratory infections of unspecified site Migraine with aura and without status migrainosus, not intractable ([facility])- Primary Type 2 diabetes mellitus without complication, without long-term current use of insulin ([facility]) Morbid (severe) obesity due to excess [...] without status migrainosus, not intractable (CMS/[facility]) Hospital discharge follow-up Other follow-up examination [...] microalbuminuria, without long-term current use of insulin ([facility]/HCC)- Primary Essential hypertension Unspecified essential hypertension Other hyperlipidemia (CMS/HCC) Snoring Other dyspnea and respiratory abnormality Mixed urge and stress incontinence Mixed incontinence urge and stress (male)(female) Lumbar back pain- Primary Lumbago Type 2 diabetes mellitus with diabetic microalbuminuria, without long-term current use of insulin (CMS/HCC) documented in this encounter [facility] HealthcareEvaluation note* Diagnosis Encounter for [...] Other hyperlipidemia (CMS/HCC) documented in [facility] [...] fracture presence (CMS/HCC) documented in this encounter [facility] HealthcareEvaluation note* Diagnosis Encounter for [...] with routine healing, subsequent encounter Other hyperlipidemia ([facility]/HCC) Hyperuricemia Other abnormal blood chemistry Osteoporosis, [...] microalbuminuria, without long-term current use of insulin ([facility]/HCC)- Primary Essential hypertension Unspecified essential hypertension Other hyperlipidemia (CMS/HCC) Snoring Other dyspnea and respiratory abnormality Mixed urge and stress incontinence Mixed incontinence urge and stress (male)(female) Upper respiratory infection with cough and congestion- Primary Lumbar back pain Lumbago Migraine with aura and without status migrainosus, not intractable (CMS/HCC) Type 2 diabetes mellitus with diabetic microalbuminuria, without long-term current use of insulin ([facility]/HCC) Diabetic polyneuropathy associated with type 2 diabetes mellitus ([facility]/HCC) Other hyperlipidemia (CMS/HCC) Gastroesophageal reflux disease without esophagitis Esophageal reflux documented in this encounter [facility] [...] healing, subsequent encounter Other hyperlipidemia (CMS/[facility]) Hyperuricemia Other abnormal blood chemistry Osteoporosis, unspecified osteoporosis type, unspecified pathological fracture presence (CMS/[facility]) Diabetic polyneuropathy associated with type 2 diabetes mellitus (CMS/HCC) Gastroesophageal reflux disease without esophagitis Esophageal reflux Migraine with aura and without status migrainosus, not intractable (CMS/[facility]) Hospital discharge follow-up Other follow-up examination [...] complication, without long-term current use of insulin ([facility]/HCC) Diabetic polyneuropathy associated with type 2 diabetes mellitus ([facility]/HCC) Mixed urge and stress incontinence Mixed [...] microalbuminuria, without long-term current use of insulin ([facility])- Primary Other hyperlipidemia (CMS/HCC) Essential hypertension Unspecified essential hypertension Bilateral lower extremity edema Lumbar back pain- Primary Lumbago Hospital discharge follow-up Other follow-up examination Essential hypertension- Primary Unspecified essential hypertension Type 2 diabetes mellitus with diabetic microalbuminuria, without long-term current use of insulin ([facility]/HCC) Morbid (severe) obesity due to excess calories (E66.01) Other hyperlipidemia (CMS/HCC) Lumbar back pain Lumbago Type 2 diabetes mellitus without complication, without long-term current use of insulin ([facility]) Diabetic polyneuropathy associated with type 2 diabetes mellitus (CMS/HCC) Mixed urge and stress incontinence Mixed incontinence urge and stress (male)(female) Snoring Other dyspnea and respiratory abnormality Encounter for long-term (current) use of high-risk medication Encounter for long-term (current) use of other medications Type 2 diabetes mellitus with diabetic microalbuminuria, without long-term current use of insulin ([facility])- Primary Essential hypertension Unspecified essential hypertension Other hyperlipidemia (CMS/HCC) Snoring Other dyspnea and respiratory abnormality Mixed urge and stress incontinence Mixed incontinence urge and stress (male)(female) Upper respiratory infection with cough and congestion- Primary Lumbar back pain Lumbago Migraine with aura and without status migrainosus, not intractable ([facility]) Type 2 diabetes mellitus with diabetic microalbuminuria, without long-term current use of insulin ([facility]) Diabetic polyneuropathy associated with type 2 diabetes mellitus (CMS/HCC) Other hyperlipidemia (CMS/HCC) Type 2 diabetes mellitus with diabetic microalbuminuria, without long-term current use of insulin ([facility]/HCC)- Primary Essential hypertension Unspecified essential hypertension Other hyperlipidemia (CMS/HCC) JANETT (obstructive sleep apnea) Obstructive sleep apnea (adult) (pediatric) Type 2 diabetes mellitus without complication, without long-term current use of insulin ([facility]/HCC) Bilateral lower extremity edema- Primary documented in this encounter [facility] [...] microalbuminuria, without long-term current use of insulin ([facility]/HCC)- Primary Other hyperlipidemia Essential hypertension Unspecified essential hypertension Bilateral lower extremity edema Lumbar back pain- Primary Lumbago Hospital discharge follow-up Other follow-up examination Essential hypertension- Primary Unspecified essential hypertension Type 2 diabetes mellitus with diabetic microalbuminuria, without long-term current use of insulin ([facility]/HCC) Morbid (severe) obesity due to excess [...] microalbuminuria, without long-term current use of insulin ([facility]/HCC)- Primary Essential hypertension Unspecified essential hypertension [...] (CMS/HCC) Hypercalcemia- Primary documented in this encounter [facility] [...] unspecified osteoporosis type, unspecified pathological fracture presence ([facility]) Diabetic polyneuropathy associated with type 2 diabetes mellitus ([facility]/HCC) Gastroesophageal reflux disease without esophagitis Esophageal reflux Migraine with aura and without status migrainosus, not intractable ([facility]) Hospital discharge follow-up Other follow-up examination Type 2 diabetes mellitus with diabetic microalbuminuria, without long-term current use of insulin ([facility])- Primary Other hyperlipidemia Essential hypertension Unspecified essential hypertension Bilateral lower extremity edema Lumbar back pain- Primary Lumbago Hospital discharge follow-up Other follow-up examination Essential hypertension- Primary Unspecified essential hypertension Type 2 diabetes mellitus with diabetic microalbuminuria, without long-term current use of insulin ([facility]) Morbid (severe) obesity due to excess calories (E66.01) Other hyperlipidemia Lumbar back pain Lumbago Type 2 diabetes mellitus without complication, without long-term current use of insulin Diabetic polyneuropathy associated with type 2 diabetes mellitus ([facility]) Mixed urge and stress incontinence Mixed incontinence urge and stress (male)(female) Snoring Other dyspnea and respiratory abnormality Encounter for long-term (current) use of high-risk medication Encounter for long-term (current) use of other medications Type 2 diabetes mellitus with diabetic microalbuminuria, without long-term current use of insulin ([facility])- Primary Essential hypertension Unspecified essential hypertension Other hyperlipidemia Snoring Other dyspnea and respiratory abnormality Mixed urge and stress incontinence Mixed incontinence urge and stress (male)(female) Type 2 diabetes mellitus with diabetic microalbuminuria, without long-term current use of insulin ([facility])- Primary Essential hypertension Unspecified essential hypertension Other hyperlipidemia JANETT (obstructive sleep apnea) Obstructive sleep apnea (adult) (pediatric) Type 2 diabetes mellitus without complication, without long-term current use of insulin Type 2 diabetes mellitus with diabetic microalbuminuria, without long-term current use of insulin ([facility])- Primary Morbid (severe) obesity due to excess calories ([facility]) Other hyperlipidemia Body mass index (BMI) 39.0-39.9, adult JANETT (obstructive sleep apnea) Obstructive sleep apnea (adult) (pediatric) Bilateral lower extremity edema Migraine with aura and without status migrainosus, not intractable ([facility]) Cigarette nicotine dependence without complication Hypercalcemia Essential hypertension Unspecified essential hypertension Elevated blood uric acid level Lumbar back pain Lumbago Gastroesophageal reflux disease without esophagitis Esophageal reflux Chronic gout of multiple sites, unspecified cause Acute pain of right knee Diabetic polyneuropathy associated with type 2 diabetes mellitus (CMS/HCC) Hypercalcemia- Primary Low serum parathyroid hormone (PTH) documented in this encounter [facility] [...] other sinus- Primary documented in this encounter [facility] [...] unspecified osteoporosis type, unspecified pathological fracture presence ([facility]) Diabetic polyneuropathy associated with type 2 diabetes mellitus ([facility]) Gastroesophageal reflux disease without esophagitis Esophageal reflux Migraine with aura and without status migrainosus, not intractable ([facility]) Hospital discharge follow-up Other follow-up examination Type 2 diabetes mellitus with diabetic microalbuminuria, without long-term current use of insulin ([facility])- Primary Other hyperlipidemia Essential hypertension Unspecified essential hypertension Bilateral lower extremity edema Lumbar back pain- Primary Lumbago Hospital discharge follow-up Other follow-up examination Essential hypertension- Primary Unspecified essential hypertension Type 2 diabetes mellitus with diabetic microalbuminuria, without long-term current use of insulin ([facility]) Morbid (severe) obesity due to excess calories (E66.01) Other hyperlipidemia Lumbar back pain Lumbago Type 2 diabetes mellitus without complication, without long-term current use of insulin Diabetic polyneuropathy associated with type 2 diabetes mellitus ([facility]) Mixed urge and stress incontinence Mixed incontinence urge and stress (male)(female) Snoring Other dyspnea and respiratory abnormality Encounter for long-term (current) use of high-risk medication Encounter for long-term (current) use of other medications Type 2 diabetes mellitus with diabetic microalbuminuria, without long-term current use of insulin ([facility])- Primary Essential hypertension Unspecified essential hypertension Other hyperlipidemia Snoring Other dyspnea and respiratory abnormality Mixed urge and stress incontinence Mixed incontinence urge and stress (male)(female) Type 2 diabetes mellitus with diabetic microalbuminuria, without long-term current use of insulin ([facility])- Primary Essential hypertension Unspecified essential hypertension Other hyperlipidemia JANETT (obstructive sleep apnea) Obstructive sleep apnea (adult) (pediatric) Type 2 diabetes mellitus without complication, without long-term current use of insulin Type 2 diabetes mellitus with diabetic microalbuminuria, without long-term current use of insulin ([facility])- Primary Morbid (severe) obesity due to excess calories ([facility]) Other hyperlipidemia Body mass index (BMI) 39.0-39.9, adult JANETT (obstructive sleep apnea) Obstructive sleep apnea (adult) (pediatric) Bilateral lower extremity edema Migraine with aura and without status migrainosus, not intractable ([facility]) Cigarette nicotine dependence without complication Hypercalcemia [...] unspecified osteoporosis type, unspecified pathological fracture presence ([facility]) Diabetic polyneuropathy associated with type 2 diabetes mellitus ([facility]) Gastroesophageal reflux disease without esophagitis Esophageal reflux Migraine with aura and without status migrainosus, not intractable ([facility]) Hospital discharge follow-up Other follow-up examination Type 2 diabetes mellitus with diabetic microalbuminuria, without long-term current use of insulin ([facility])- Primary Other hyperlipidemia Essential hypertension Unspecified essential hypertension Bilateral lower extremity edema Lumbar back pain- Primary Lumbago Hospital discharge follow-up Other follow-up examination Essential hypertension- Primary Unspecified essential hypertension Type 2 diabetes mellitus with diabetic microalbuminuria, without long-term current use of insulin ([facility]) Morbid (severe) obesity due to excess calories (E66.01) Other hyperlipidemia Lumbar back pain Lumbago Type 2 diabetes mellitus without complication, without long-term current use of insulin Diabetic polyneuropathy associated with type 2 diabetes mellitus ([facility]) Mixed urge and stress incontinence Mixed incontinence urge and stress (male)(female) Snoring Other dyspnea and respiratory abnormality Encounter for long-term (current) use of high-risk medication Encounter for long-term (current) use of other medications Type 2 diabetes mellitus with diabetic microalbuminuria, without long-term current use of insulin ([facility])- Primary Essential hypertension Unspecified essential hypertension Other hyperlipidemia Snoring Other dyspnea and respiratory abnormality Mixed urge and stress incontinence Mixed incontinence urge and stress (male)(female) Type 2 diabetes mellitus with diabetic microalbuminuria, without long-term current use of insulin ([facility])- Primary Essential hypertension Unspecified essential hypertension Other hyperlipidemia JANETT (obstructive sleep apnea) Obstructive sleep apnea (adult) (pediatric) Type 2 diabetes mellitus without complication, without long-term current use of insulin Type 2 diabetes mellitus with diabetic microalbuminuria, without long-term current use of insulin ([facility])- Primary Morbid (severe) obesity due to excess calories ([facility]) Other hyperlipidemia Body mass index (BMI) [...] hormone (PTH)- Primary documented [facility] [...] long-term current use of insulin ([facility])- Primary Essential hypertension Unspecified essential hypertension Other hyperlipidemia Snoring Other dyspnea and respiratory abnormality Mixed urge and stress incontinence Mixed incontinence urge and stress (male)(female) Type 2 diabetes mellitus with diabetic microalbuminuria, without long-term current use of insulin ([facility])- Primary Essential hypertension Unspecified essential hypertension Other hyperlipidemia JANETT (obstructive sleep apnea) Obstructive sleep apnea (adult) (pediatric) Type 2 diabetes mellitus without complication, without long-term current use of insulin (HCC) Type 2 diabetes mellitus with diabetic microalbuminuria, without long-term current use of insulin ([facility])- Primary Morbid (severe) obesity due to excess calories ([facility]) Other hyperlipidemia Body mass index (BMI) [...] back pain Lumbago documented in this encounter [facility] [...] long-term current use of insulin ([facility]) Morbid (severe) obesity due to excess calories (E66.01) Body mass index [BMI] 40.0-44.9, adult (Z68.41) Essential hypertension Unspecified essential hypertension Essential hypertension- Primary Unspecified essential hypertension Type 2 diabetes mellitus without complication, without long-term current use of insulin ([facility]) Back spasm Other symptoms referable to [...] with type 2 diabetes mellitus ([facility]) Gastroesophageal reflux disease without esophagitis Esophageal reflux Migraine with aura and without status migrainosus, not intractable Hospital discharge follow-up Other follow-up examination Type 2 diabetes mellitus with diabetic microalbuminuria, without long-term current use of insulin ([facility])- Primary Other hyperlipidemia Essential hypertension Unspecified essential hypertension Bilateral lower extremity edema Lumbar back pain- Primary Lumbago Hospital discharge follow-up Other follow-up examination Essential hypertension- Primary Unspecified essential hypertension Type 2 diabetes mellitus with diabetic microalbuminuria, without long-term current use of insulin ([facility]) Morbid (severe) obesity due to excess calories (E66.01) Other hyperlipidemia Lumbar back pain Lumbago Type 2 diabetes mellitus without complication, without long-term current use of insulin ([facility]) Diabetic polyneuropathy associated with type 2 diabetes mellitus ([facility]) Mixed urge and stress incontinence Mixed incontinence urge and stress (male)(female) Snoring Other dyspnea and respiratory abnormality Encounter for long-term (current) use of high-risk medication Encounter for long-term (current) use of other medications Type 2 diabetes mellitus with diabetic microalbuminuria, without long-term current use of insulin ([facility])- Primary Essential hypertension Unspecified essential hypertension Other hyperlipidemia Snoring Other dyspnea and respiratory abnormality Mixed urge and stress incontinence Mixed incontinence urge and stress (male)(female) Type 2 diabetes mellitus with diabetic microalbuminuria, without long-term current use of insulin ([facility])- Primary Essential hypertension Unspecified essential hypertension Other hyperlipidemia JANETT (obstructive sleep apnea) Obstructive sleep apnea (adult) (pediatric) Type 2 diabetes mellitus without complication, without long-term current use of insulin ([facility]) Type 2 diabetes mellitus with diabetic microalbuminuria, without long-term current use of insulin ([facility])- Primary Morbid (severe) obesity due to excess calories ([facility]) Other hyperlipidemia Body mass index (BMI) [...] Vitamin D deficiency documented in this encounter [facility] [...] Morbid (severe) obesity due to excess calories ([facility]) Other hyperlipidemia Body mass index (BMI) [...] back pain Lumbago documented in this encounter [facility] [...] long-term current use of insulin ([facility]) Back spasm Other symptoms referable to [...] with type 2 diabetes mellitus ([facility]) Gastroesophageal reflux disease without esophagitis Esophageal reflux Migraine with aura and without status migrainosus, not intractable Hospital discharge follow-up Other follow-up examination Type 2 diabetes mellitus with diabetic microalbuminuria, without long-term current use of insulin ([facility])- Primary Other hyperlipidemia Essential hypertension Unspecified essential hypertension Bilateral lower extremity edema Lumbar back pain- Primary Lumbago Hospital discharge follow-up Other follow-up examination Essential hypertension- Primary Unspecified essential hypertension Type 2 diabetes mellitus with diabetic microalbuminuria, without long-term current use of insulin ([facility]) Morbid (severe) obesity due to excess calories (E66.01) Other hyperlipidemia Lumbar back pain Lumbago Type 2 diabetes mellitus without complication, without long-term current use of insulin ([facility]) Diabetic polyneuropathy associated with type 2 diabetes mellitus ([facility]) Mixed urge and stress incontinence Mixed incontinence urge and stress (male)(female) Snoring Other dyspnea and respiratory abnormality Encounter for long-term (current) use of high-risk medication Encounter for long-term (current) use of other medications Type 2 diabetes mellitus with diabetic microalbuminuria, without long-term current use of insulin ([facility])- Primary Essential hypertension Unspecified essential hypertension Other hyperlipidemia Snoring Other dyspnea and respiratory abnormality Mixed urge and stress incontinence Mixed incontinence urge and stress (male)(female) Type 2 diabetes mellitus with diabetic microalbuminuria, without long-term current use of insulin ([facility])- Primary Essential hypertension Unspecified essential hypertension Other hyperlipidemia JANETT (obstructive sleep apnea) Obstructive sleep apnea (adult) (pediatric) Type 2 diabetes mellitus without complication, without long-term current use of insulin ([facility]) Type 2 diabetes mellitus with diabetic microalbuminuria, without long-term current use of insulin ([facility])- Primary Morbid (severe) obesity due to excess calories ([facility]) Other hyperlipidemia Body mass index (BMI) [...] unspecified cause- Primary documented in this encounter [facility] [...] Morbid (severe) obesity due to excess calories ([facility]) Other hyperlipidemia Body mass index (BMI) [...] long-term current use of insulin ([facility]) documented in this encounter [facility] [...] long-term current use of insulin ([facility]) Back spasm Other symptoms referable to [...] with type 2 diabetes mellitus ([facility]) Gastroesophageal reflux disease without esophagitis Esophageal reflux Migraine with aura and without status migrainosus, not intractable Hospital discharge follow-up Other follow-up examination Type 2 diabetes mellitus with diabetic microalbuminuria, without long-term current use of insulin ([facility])- Primary Other hyperlipidemia Essential hypertension Unspecified essential hypertension Bilateral lower extremity edema Lumbar back pain- Primary Lumbago Hospital discharge follow-up Other follow-up examination Essential hypertension- Primary Unspecified essential hypertension Type 2 diabetes mellitus with diabetic microalbuminuria, without long-term current use of insulin ([facility]) Morbid (severe) obesity due to excess calories (E66.01) Other hyperlipidemia Lumbar back pain Lumbago Type 2 diabetes mellitus without complication, without long-term current use of insulin ([facility]) Diabetic polyneuropathy associated with type 2 diabetes mellitus ([facility]) Mixed urge and stress incontinence Mixed incontinence urge and stress (male)(female) Snoring Other dyspnea and respiratory abnormality Encounter for long-term (current) use of high-risk medication Encounter for long-term (current) use of other medications Type 2 diabetes mellitus with diabetic microalbuminuria, without long-term current use of insulin ([facility])- Primary Essential hypertension Unspecified essential hypertension Other hyperlipidemia Snoring Other dyspnea and respiratory abnormality Mixed urge and stress incontinence Mixed incontinence urge and stress (male)(female) Type 2 diabetes mellitus with diabetic microalbuminuria, without long-term current use of insulin ([facility])- Primary Essential hypertension Unspecified essential hypertension Other hyperlipidemia JANETT (obstructive sleep apnea) Obstructive sleep apnea (adult) (pediatric) Type 2 diabetes mellitus without complication, without long-term current use of insulin ([facility]) Type 2 diabetes mellitus with diabetic microalbuminuria, without long-term current use of insulin ([facility])- Primary Morbid (severe) obesity due to excess calories ([facility]) Other hyperlipidemia Body mass index (BMI) [...] lower extremity edema documented in this encounter [facility] HealthcareEvaluation note* Diagnosis Encounter for screening mammogram for breast cancer- Primary Encounter for screening for malignant neoplasm of colon Type 2 diabetes mellitus without complication, without long-term current use of insulin ([facility]) Upper respiratory tract infection, unspecified type URTI (acute upper respiratory infection) Acute upper respiratory infections of unspecified site Migraine with aura and without status migrainosus, not intractable- Primary Type 2 diabetes mellitus without complication, without long-term current use of insulin ([facility]) Morbid (severe) obesity due to excess calories (E66.01) Body mass index [BMI] 40.0-44.9, adult (Z68.41) Essential hypertension Unspecified essential hypertension Essential hypertension- Primary Unspecified essential hypertension Type 2 diabetes mellitus without complication, without long-term current use of insulin ([facility]) Back spasm Other symptoms referable to [...] long-term current use of insulin ([facility]) Morbid (severe) obesity due to excess [...] long-term current use of insulin ([facility])- Primary Essential hypertension Unspecified essential hypertension Other hyperlipidemia Snoring Other dyspnea and respiratory abnormality Mixed urge and stress incontinence Mixed incontinence urge and stress (male)(female) Type 2 diabetes mellitus with diabetic microalbuminuria, without long-term current use of insulin ([facility])- Primary Essential hypertension Unspecified essential hypertension Other hyperlipidemia JANETT (obstructive sleep apnea) Obstructive sleep apnea (adult) (pediatric) Type 2 diabetes mellitus without complication, without long-term current use of insulin ([facility]) Type 2 diabetes mellitus with diabetic microalbuminuria, without long-term current use of insulin ([facility])- Primary Morbid (severe) obesity due to excess calories ([facility]) Other hyperlipidemia Body mass index (BMI) [...] long-term current use of insulin ([facility])- Primary Essential hypertension Unspecified essential hypertension [...] long-term current use of insulin ([facility]) Osteoporosis, unspecified osteoporosis type, unspecified pathological fracture presence documented in this encounter [facility] HealthcareEvaluation [facility]* Diagnosis Encounter for [...] long-term current use of insulin ([facility])- Primary Essential hypertension Unspecified essential hypertension [...] Morbid (severe) obesity due to excess calories ([facility]) Other hyperlipidemia Body mass index (BMI) [...] diabetes mellitus (HCC) documented in this encounter [facility] [...] long-term current use of insulin ([facility]) Morbid (severe) obesity due to excess calories (E66.01) Body mass index [BMI] 40.0-44.9, adult (Z68.41) Essential hypertension Unspecified essential hypertension Essential hypertension- Primary Unspecified essential hypertension Type 2 diabetes mellitus without complication, without long-term current use of insulin ([facility]) Back spasm Other symptoms referable to [...] with type 2 diabetes mellitus ([facility]) Gastroesophageal reflux disease without esophagitis Esophageal reflux Migraine with aura and without status migrainosus, not intractable Hospital discharge follow-up Other follow-up examination Type 2 diabetes mellitus with diabetic microalbuminuria, without long-term current use of insulin ([facility])- Primary Other hyperlipidemia Essential hypertension Unspecified essential hypertension Bilateral lower extremity edema Lumbar back pain- Primary Lumbago Hospital discharge follow-up Other follow-up examination Essential hypertension- Primary Unspecified essential hypertension Type 2 diabetes mellitus with diabetic microalbuminuria, without long-term current use of insulin ([facility]) Morbid (severe) obesity due to excess calories (E66.01) Other hyperlipidemia Lumbar back pain Lumbago Type 2 diabetes mellitus without complication, without long-term current use of insulin ([facility]) Diabetic polyneuropathy associated with type 2 diabetes mellitus ([facility]) Mixed urge and stress incontinence Mixed incontinence urge and stress (male)(female) Snoring Other dyspnea and respiratory abnormality Encounter for long-term (current) use of high-risk medication Encounter for long-term (current) use of other medications Type 2 diabetes mellitus with diabetic microalbuminuria, without long-term current use of insulin ([facility])- Primary Essential hypertension Unspecified essential hypertension Other hyperlipidemia Snoring Other dyspnea and respiratory abnormality Mixed urge and stress incontinence Mixed incontinence urge and stress (male)(female) Type 2 diabetes mellitus with diabetic microalbuminuria, without long-term current use of insulin ([facility])- Primary Essential hypertension Unspecified essential hypertension Other hyperlipidemia JANETT (obstructive sleep apnea) Obstructive sleep apnea (adult) (pediatric) Type 2 diabetes mellitus without complication, without long-term current use of insulin ([facility]) Type 2 diabetes mellitus with diabetic microalbuminuria, without long-term current use of insulin ([facility])- Primary Morbid (severe) obesity due to excess calories ([facility]) Other hyperlipidemia Body mass index (BMI) [...] back pain Lumbago documented in this encounter [facility] HealthcareEvaluation note* Diagnosis Encounter for screening mammogram for breast cancer- Primary Encounter for screening for malignant neoplasm of colon Type 2 diabetes mellitus without complication, without long-term current use of insulin ([facility]) Upper respiratory tract infection, unspecified type URTI (acute upper respiratory infection) Acute upper respiratory infections of unspecified site Migraine with aura and without status migrainosus, not intractable- Primary Type 2 diabetes mellitus without complication, without long-term current use of insulin ([facility]) Morbid (severe) obesity due to excess calories (E66.01) Body mass index [BMI] 40.0-44.9, adult (Z68.41) Essential hypertension Unspecified essential hypertension Essential hypertension- Primary Unspecified essential hypertension Type 2 diabetes mellitus without complication, without long-term current use of insulin ([facility]) Back spasm Other symptoms referable to [...] long-term current use of insulin ([facility]) Morbid (severe) obesity due to excess [...] long-term current use of insulin ([facility])- Primary Essential hypertension Unspecified essential hypertension Other hyperlipidemia Snoring Other dyspnea and respiratory abnormality Mixed urge and stress incontinence Mixed incontinence urge and stress (male)(female) Type 2 diabetes mellitus with diabetic microalbuminuria, without long-term current use of insulin ([facility])- Primary Essential hypertension Unspecified essential hypertension Other hyperlipidemia JANETT (obstructive sleep apnea) Obstructive sleep apnea (adult) (pediatric) Type 2 diabetes mellitus without complication, without long-term current use of insulin ([facility]) Type 2 diabetes mellitus with diabetic microalbuminuria, without long-term current use of insulin ([facility])- Primary Morbid (severe) obesity due to excess calories ([facility]) Other hyperlipidemia Body mass index (BMI) [...] long-term current use of insulin ([facility])- Primary Essential hypertension Unspecified essential hypertension Morbid (severe) obesity due to excess calories (E66.01) Cigarette nicotine dependence without complication Chronic gout of multiple sites, unspecified cause Gastroesophageal reflux disease without esophagitis Esophageal reflux Bilateral lower extremity edema Other hyperlipidemia documented in this encounter [facility] HealthcareEvaluation note* Diagnosis Encounter for screening mammogram for breast cancer- Primary Encounter for screening for malignant neoplasm of colon Type 2 diabetes mellitus without complication, without long-term current use of insulin ([facility]) Upper respiratory tract infection, unspecified type [...] with type 2 diabetes mellitus ([facility]) Gastroesophageal reflux disease without esophagitis Esophageal reflux Migraine with aura and without status migrainosus, not intractable Hospital discharge follow-up Other follow-up examination Type 2 diabetes mellitus with diabetic microalbuminuria, without long-term current use of insulin ([facility])- Primary Other hyperlipidemia Essential hypertension Unspecified essential hypertension Bilateral lower extremity edema Lumbar back pain- Primary Lumbago Hospital discharge follow-up Other follow-up examination Essential hypertension- Primary Unspecified essential hypertension Type 2 diabetes mellitus with diabetic microalbuminuria, without long-term current use of insulin ([facility]) Morbid (severe) obesity due to excess [...] long-term current use of insulin ([facility])- Primary Essential hypertension Unspecified essential hypertension Other hyperlipidemia Snoring Other dyspnea and respiratory abnormality Mixed urge and stress incontinence Mixed incontinence urge and stress (male)(female) Type 2 diabetes mellitus with diabetic microalbuminuria, without long-term current use of insulin ([facility])- Primary Essential hypertension Unspecified essential hypertension Other hyperlipidemia JANETT (obstructive sleep apnea) Obstructive sleep apnea (adult) (pediatric) Type 2 diabetes mellitus without complication, without long-term current use of insulin (HCC) Type 2 diabetes mellitus with diabetic microalbuminuria, without long-term current use of insulin (HCC)- Primary Morbid (severe) obesity due to excess calories ([facility]) Other hyperlipidemia Body mass index (BMI) [...] esophagitis Esophageal reflux Bilateral lower extremity edema Low serum parathyroid hormone (PTH)- Primary Hypercalcemia Vitamin D deficiency Hypomagnesemia Disorders of magnesium metabolism documented in this encounter [facility] Narrative - Reported* Type Description Date Medical History GERD (gastroesophageal reflux di sease) Medical History Migraine headache Medical History Arthritis Medical History Edema of both legs Medical History Diabetes mellitus, type 2 Medical History Chronic back pain Surgical History ablasion Surgical History back surgery Surgical History hysterectomy Surgical History tubal ligation Hospitalization History see above [employer] Other Reason for referral (narrative)* Consultation (Routine) - Pending Review Specialty Diagnoses / Procedures Referred By Darren acharya Referred To Contact Neurology Diagnoses Snoring Procedures RI OFFICE/OUTPATIENT [facility] 60 MINUTES Sonam Drake NP [address] [place] [address] Sivan Banda DO [address] [place] [address] Referral ID Status Reason Start Date Expiration Date Visits Requested Visits Authorized [id number] Pending Review Specialty Services Required 10/03/2023 03/31/2024 1 1 Scheduling Instructions Please include OV note from today * Consultation (Routine) - Pending Review Specialty Diagnoses / Procedures Referred By Darren t Referred To Contact Urology Diagnoses Mixed urge and stress incontinence Procedures RI OFFICE/OUTPATIENT NEW HIGH MDM 60 MINUTES Sonam Drake NP [address] [place] [address] Skinny Villafuerte MD [address] [place] [address] Referral ID Status Reason Start Date Expiration Date Visits Requested Visits Authorized [id number] Pending Review Specialty Services Required 10/03/2023 03/31/2024 1 1 [facility] (narrative)No reason for referral [facility]: Summary Purpose Family History No Family History [...] Care Teams (unrecognized sec tion and content) Oncology Account Specialist Relationship Specialty Start Date End Date Sr Jonathan Edwards, [address] [place] [address] PCP - General Family Medicine 08/30/21 Oncology Account Specialist Relationship Specialty Start Date End Date Fawwad, Barrios, MD PCP - General Internal Medicine 11/11/22 Team Status: Active Member Role Status Dates NON STAFF Primary Care Provider Active Team Status: Inactive Member Role Status Dates Ana Luisa Curtis MD Attending Provider Active Start: April 30, 2023 End: April 30, 2023 NON STAFF Primary Care Provider Active Start: April 30, 2023 End: April 30, 2023 Oncology Account Specialist Relationship Specialty Start Date End Date Jose Chandler MD [address] [place] [address] PCP - General Family Medicine 12/12/23 Sonam Drake NP [address] [place] [address] Nurse Practitioner Family Medicine 09/24/23 Oncology Account Specialist Relationship Specialty Start Date End Date Jose Chandler MD [address] [address] PCP - General Family Medicine 12/12/23 Sonam Drake NP [address] [place] [address] Nurse Practitioner Family Medicine 09/24/23 Oncology Account Specialist Relationship Specialty Start Date End Date Jose Chandler MD [address] [place] [address] PCP - General Family Medicine 12/12/23 Sonam Drake NP [address] [place] [address] Nurse Practitioner Family Medicine 09/24/23 Oncology Account Specialist Relationship Specialty Start Date End Date Jose Chandler MD [address] [place] [address] PCP - General Family Medicine 12/12/23 Sonam Drake NP [address] [place] [address] Nurse Practitioner Family Medicine 09/24/23 Oncology Account Specialist Relationship Specialty Start Date End Date Jose Chandler MD [address] [place] [address] PCP - General Family Medicine 12/12/23 Sonam Drake NP [address] [place] [address] Nurse Practitioner Family Medicine 09/24/23 Oncology Account Specialist Relationship Specialty Start Date End Date Jose Chandler MD [address] [place] [address] PCP - General Family Medicine 12/12/23 Sonam Drake NP [address] [place] [address] Nurse Practitioner Family Medicine 09/24/23 Oncology Account Specialist Relationship Specialty Start Date End Date Jose Chandler MD [address] [place] [address] PCP - General Family Medicine 09/24/23 Sonam Drake NP [address] [place] [address] Nurse Practitioner Family Medicine 09/24/23 Oncology Account Specialist Relationship Specialty Start Date End Date Jose Chandler MD [address] [place] [address] PCP - General Family Medicine 09/24/23 Sonam Drake NP [address] [place] [address] Nurse Practitioner Family Medicine 09/24/23 Oncology Account Specialist Relationship Specialty Start Date End Date Jose Chandler MD [address] [place] [address] PCP - General Family Medicine 09/24/23 Sonam Drake NP [address] [place] [address] Nurse Practitioner Family Medicine 09/24/23 Oncology Account Specialist Relationship Specialty Start Date End Date Jose Chandler MD [address] [place] [address] PCP - General Family Medicine 09/24/23 Sonam Drake NP [address] [place] [address] Nurse Practitioner Family Medicine 09/24/23 Oncology Account Specialist Relationship Specialty Start Date End Date Jose Chandler MD [address] [place] [address] PCP - General Family Medicine 12/12/23 Sonam Drake NP [address] [place] [address] Nurse Practitioner Family Medicine 09/24/23 Oncology Account Specialist Relationship Specialty Start Date End Date Jose Chandler MD [address] [place] [address] PCP - General Family Medicine 12/12/23 Sonam Drake NP [address] [place] [address] Nurse Practitioner Family Medicine 09/24/23 Oncology Account Specialist Relationship Specialty Start Date End Date Jose Chandler MD [address] [place] [address] PCP - General Family Medicine 12/12/23 Sonam Drake NP [address] [place] [address] Nurse Practitioner Family Medicine 09/24/23 Oncology Account Specialist Relationship Specialty Start Date End Date Jose Chandler MD [address] [place] [address] PCP - General Family Medicine 12/12/23 Sonam Drake NP [address] [place] [address] Nurse Practitioner Family Medicine 09/24/23 Oncology Account Specialist Relationship Specialty Start Date End Date Jose Chandler MD [address] [place] [address] PCP - General Family Medicine 12/12/23 Sonam Drake NP [address] [place] [address] Nurse Practitioner Family Medicine 09/24/23 Oncology Account Specialist Relationship Specialty Start Date End Date Jose Chandler MD [address] [place] [address] PCP - General Family Medicine 12/12/23 Sonam Drake NP [address] [place] [address] Nurse Practitioner Family Medicine 09/24/23 Oncology Account Specialist Relationship Specialty Start Date End Date Jose Chandler MD [address] [place] [address] PCP - General Family Medicine 12/12/23 Sonam Drake NP [address] [place] [address] Nurse Practitioner Family Medicine 09/24/23 Oncology Account Specialist Relationship Specialty Start Date End Date Jose Chandler MD [address] [place] [address] PCP - General Family Medicine 12/12/23 Sonam Drake NP [address] [place] [address] Nurse Practitioner Family Medicine 09/24/23 Oncology Account Specialist Relationship Specialty Start Date End Date Jose Chandler MD [address] [place] [address] PCP - General Family Medicine 12/12/23 Sonam Drake NP [address] [place] [address] Nurse Practitioner Family Medicine 09/24/23 Oncology Account Specialist Relationship Specialty Start Date End Date Jose Chandler MD [address] [place] [address] PCP - General Family Medicine 12/12/23 Sonam Drake NP [address] [place] [address] Nurse Practitioner Family Medicine 09/24/23 Oncology Account Specialist Relationship Specialty Start Date End Date Jose Chandler MD [address] [place] [address] PCP - General Family Medicine 12/12/23 Sonam rDake NP Nurse Practitioner Family Medicine 09/24/23 Za Wilkerson NP [address] [place], [place] Nurse Practitioner Neurology 04/21/24 Sivan Banda DO [address] [place] [address] Referring Physician Neurology 04/21/24 Oncology Account Specialist Relationship Specialty Start Date End Date Jose Chandler MD [address] [place] [address] PCP - General Family Medicine 12/12/23 Sonam Drake NP Nurse Practitioner Family Medicine 09/24/23 Za Wilkerson, RONALDO [address] [place], [place] Nurse Practitioner Neurology 04/21/24 Sivan Banda DO [address] [place], [place] [address] Referring Physician Neurology 04/21/24 Oncology Account Specialist Relationship Specialty Start Date End Date Jose Chandler MD [address] [place] [address] PCP - General Family Medicine 12/12/23 Sonam Drake, RONALDO Nurse Practitioner Family Medicine 09/24/23 Za Wilkerson NP [address] [place], [place] Nurse Practitioner Neurology 04/21/24 Sivan Banda DO [address] [place] [address] Referring Physician Neurology 04/21/24 Oncology Account Specialist Relationship Specialty Start Date End Date Jose Chandler MD [address] [place] [address] PCP - General Family Medicine 12/12/23 Sonam Drake NP Nurse Practitioner Family Medicine 09/24/23 Za Wilkerson NP [address] [place], [place] Nurse Practitioner Neurology 04/21/24 Sivan Banda DO [address] [place] [address] Referring Physician Neurology 04/21/24 Oncology Account Specialist Relationship Specialty Start Date End Date Jose Chadnler MD [address] [place] [address] PCP - General Family Medicine 12/12/23 Sonam Drake NP Nurse Practitioner Family Medicine 09/24/23 Za Wilkerson NP [address] [place] Nurse Practitioner Neurology 04/21/24 Sivan Banda DO [address] [place] [address] Referring Physician Neurology 04/21/24 Oncology Account Specialist Relationship Specialty Start Date End Date Jose Chandler MD [address] [place] [address] PCP - General Family Medicine 12/12/23 Sonam Drake NP Nurse Practitioner Family Medicine 09/24/23 Za Wilkerson NP [address] [place] Nurse Practitioner Neurology 04/21/24 Sivan Banda DO [address] [place], [place] [address] Referring Physician Neurology 04/21/24 Oncology Account Specialist Relationship Specialty Start Date End Date Jose Chandler MD [address] [place] [address] PCP - General Family Medicine 12/12/23 Sonam Drake NP Nurse Practitioner Family Medicine 09/24/23 Za Wilkerson NP [address] [place] Nurse Practitioner Neurology 04/21/24 Sivan Banda DO [address] [place] [address] Referring Physician Neurology 04/21/24 Team Status: Active [...] May 28, 2024 End: May 28, 2024 Oncology Account Specialist Relationship Specialty Start Date End Date Jose Chandler MD [address] [place] [address] PCP - General Family Medicine 12/12/23 Sonam Drake NP Nurse Practitioner Family Medicine 09/24/23 Za Wilkerson NP [address] [place], [place] Nurse Practitioner Neurology 04/21/24 Sivan Banda DO [address] [place] [address] Referring Physician Neurology 04/21/24 Oncology Account Specialist Relationship Specialty Start Date End Date Jose Chandler MD [address] [place] [address] PCP - General Family Medicine 12/12/23 Sonam Drake NP Nurse Practitioner Family Medicine 09/24/23 Za Wilkerson NP [address] [place] Nurse Practitioner Neurology 04/21/24 Sivan Banda DO [address] [place] [address] Referring Physician Neurology 04/21/24 Oncology Account Specialist Relationship Specialty Start Date End Date Jose Chandler MD [address] [place] [address] PCP - General Family Medicine 12/12/23 Sonam Drake NP Nurse Practitioner Family Medicine 09/24/23 Za Wilkerson NP [address] [place], [place] Nurse Practitioner Neurology 04/21/24 Sivan Banda DO [address] [place] [address] Referring Physician Neurology 04/21/24 Oncology Account Specialist Relationship Specialty Start Date End Date Jose Chandler MD [address] [place] [address] PCP - General Family Medicine 12/12/23 Sonam Drake NP Nurse Practitioner Family Medicine 09/24/23 Za Wilkerson NP [address] [place] [address] Nurse Practitioner Neurology 04/21/24 Sivan Banda DO [address] [place] [address] Referring Physician Neurology 04/21/24 Oncology Account Specialist Relationship Specialty Start Date End Date Jose Chandler MD [address] [place] [address] PCP - General Family Medicine 12/12/23 Sonam Drake NP Nurse Practitioner Family Medicine 09/24/23 Za Wilkerson NP [address] [place] [address] Nurse Practitioner Neurology 04/21/24 Sivan Banda DO [address] [place] [address] Referring Physician Neurology 04/21/24 Oncology Account Specialist Relationship Specialty Start Date End Date Jose Chandler MD [address] [place] [address] PCP - General Family Medicine 12/12/23 Sonam Drake NP Nurse Practitioner Family Medicine 09/24/23 Za Wilkerson NP [address] [place] [address] Nurse Practitioner Neurology 04/21/24 Sivan Banda DO [address] [place], [place] [address] Referring Physician Neurology 04/21/24 Oncology Account Specialist Relationship Specialty Start Date End Date Jose Chandler MD [address] [place] [address] PCP - General Family Medicine 12/12/23 Sonam Drake NP Nurse Practitioner Family Medicine 09/24/23 Za Wilkerson NP [address] [place] [address] Nurse Practitioner Neurology 04/21/24 Sivan Banda DO [address] [place], [place] [address] Referring Physician Neurology 04/21/24 Oncology Account Specialist Relationship Specialty Start Date End Date Jose Chandler MD [address] [place] [address] PCP - General Family Medicine 12/12/23 Sonam Drake NP Nurse Practitioner Family Medicine 09/24/23 Za Wilkerson, RONALDO [address] [place] [address] Nurse Practitioner Neurology 04/21/24 Sivan Banda DO [address] [place] [address] Referring Physician Neurology 04/21/24 Oncology Account Specialist Relationship Specialty Start Date End Date Jose Chandler MD [address] [place] [address] PCP - General Family Medicine 12/12/23 Sonam Drake NP Nurse Practitioner Family Medicine 09/24/23 Za Wilkerson NP [address] [place] [address] Nurse Practitioner Neurology 04/21/24 Sivan Banda DO [address] [place], [place] [address] Referring Physician Neurology 04/21/24 Oncology Account Specialist Relationship Specialty Start Date End Date Jose Chandler MD [address] [place] [address] PCP - General Family Medicine 12/12/23 Sonam Drake NP Nurse Practitioner Family Medicine 09/24/23 Za Wilkerson NP [address] [place] [address] Nurse Practitioner Neurology 04/21/24 Sivan Banda DO [address] [place] [address] Referring Physician Neurology 04/21/24 Oncology Account Specialist Relationship Specialty Start Date End Date Jose Chandler MD [address] [place] [address] PCP - General Family Medicine 12/12/23 Sonam Drake NP Nurse Practitioner Family Medicine 09/24/23 Za Wilkerson, RONALDO [address] [place] [address] Nurse Practitioner Neurology 04/21/24 Sivan Banda DO [address] [place], [place] [address] Referring Physician Neurology 04/21/24 Oncology Account Specialist Relationship Specialty Start Date End Date Jose Chandler MD [address] [place] [address] PCP - General Family Medicine 12/12/23 Sonam Drake NP Nurse Practitioner Family Medicine 09/24/23 Za Wilkerson, RONALDO [address] [place] [address] Nurse Practitioner Neurology 04/21/24 Sivan Banda DO [address] [place] [address] Referring Physician Neurology 04/21/24 Oncology Account Specialist Relationship Specialty Start Date End Date Jose Chandler MD [address] [place] [address] PCP - General Family Medicine 12/12/23 Sonam Drake NP Nurse Practitioner Family Medicine 09/24/23 Za Wilkerson NP [address] [place] [address] Nurse Practitioner Neurology 04/21/24 Sivan Banda DO [address] [place] [address] Referring Physician Neurology 04/21/24 Team Status: Inactive Member Role Status Dates Ameena Vera Primary Care Provider Active Sta rt: October 19, 2024 End: October 19, 2024 Ameena Vera Attending Provider Active Start: October 19, 2024 End: October 19, 2024 Oncology Account Specialist Relationship Specialty Start Date End Date Jose Chandler MD PCP - General Family Medicine 12/12/23 Sonam Drake NP Nurse Practitioner Family Medicine 09/24/23 Za Wilkerson NP Nurse Practitioner Neurology 04/21/24 Sivan Banda DO [address] [place] [address] Referring Physician Neurology 04/21/24 Oncology Account Specialist Relationship Specialty Start Date End Date Jose Chandler MD PCP - General Family Medicine 12/12/23 Sonam Drake NP Nurse Practitioner Family Medicine 09/24/23 Za Wilkerson NP Nurse Practitioner Neurology 04/21/24 Sivan Banda DO [address] [place] [address] Referring Physician Neurology 04/21/24 INFORMATION SOURCE (unrecogn ized section and content) DATE CREATED AUTHOR 09/10/2021 [facility] DATE CREATED AUTHOR AUTHOR'S ORGANIZ ATION 06/08/2022 [facility] [place] [facility] DATE CREATED AUTHOR AUTHOR'S ORGANIZ ATION 10/06/2023 Sierra [facility] DATE CREATED AUTHOR AUTHOR'S ORGANIZ ATION 06/01/2024 [facility] DATE CREATED AUTHOR AUTHOR'S ORGANIZ ATION 10/28/2024 [facility] DATE CREATED AUTHOR AUTHOR'S ORGANIZ ATION 11/02/2024 [facility] REASON FOR VISIT (unrecogniz ed section [...] Diagnoses Low serum parathyroid hormone (PTH) Procedures RI OFFICE/OUTPATIENT NEW HIGH MDM 60 MINUTES Ameena Vera, RONALDO [address] [place] [address] Phone: tel: fax: Kasi Bennett MD [address] [place] [address] Phone: tel: fax: Referral ID Status Reason Start Date Expiration Date Visits Requested Visits Authorized [id number] Pending Review Specialty Services Required 07/14/2024 01/10/2025 1 1 Reason Onset Date Comments Med Refill 10/05/2024 Reason Comments Follow-up PTH LAB Goals (unrecognized section and content) Goals may [...] BE BASED ON THE PRIMARY CLINICAL RECORDS. [employer] provides no warranty or guarantee of the accuracy or completeness of information in this document.
--- NOTE | 2024-11-04 10:41 | PM.CN ---
Consult Note: HPI Data of Consult Patient: known to practice within the last 3 years Requesting Physician: Chela Tijerina NP Primary Care Provider: Ameena Vera NP Consult Narrative Reason for consult: f/u Narrative: Brian Weir a pleasant 58 year old female presents for evaluation and management of chronic low back pain. pt has failed to benefit from 6 weeks of provider guided HEP/PT, tylenol, NSAIDs, heat and ice. Pain today 7-8/10 increasing to 9/10, pain increased with standing, walking, activity, lifting, stairs, bending, twisting, pushing, pulling. Pain improved with lying and reclining. Utilizes baclofen, diclofenac, lyrica, and percocet for pain with moderate relief without side effects. recently underwent right SIJ injection with significant ongoing relief in SIJ pain. cc:: CC: Chela Tijerina NP Review of Systems ROS Status of ROS 10 or more systems reviewed and unremarkable except as noted in history and below Musculoskeletal Reports: back pain and joint pain PFSH PFSH Medical History Morbid obesity due to excess calories ?E66.01 - Morbid (severe) obesity due to excess calories (ICD-10) Type 2 diabetes mellitus with hyperglycemia ?E11.65 - Type 2 diabetes mellitus with hyperglycemia (ICD-10) HTN (hypertension) ?I10 - Essential (primary) hypertension (ICD-10) Lumbar spondylosis ?M47.816 - Spondylosis without myelopathy or radiculopathy, lumbar region (ICD-10) Fracture of foot ?S92.909A - Unspecified fracture of unspecified foot, initial encounter for closed fracture (ICD-10) Closed fibular fracture ?S82.409A - Unspecified fracture of shaft of unspecified fibula, initial encounter for closed fracture (ICD-10) Fracture of medial cuneiform of left foot ?S92.242A - Displaced fracture of medial cuneiform of left foot, initial encounter for closed fracture (ICD-10) Fracture of metatarsal of left foot, closed ?S92.302A - Fracture of unspecified metatarsal bone(s), left foot, initial encounter for closed fracture (ICD-10) Dislocation of foot, left, closed ?S93.305A - Unspecified dislocation of left foot, initial encounter (ICD-10) Mild protein-calorie malnutrition ?E44.1 - Mild protein-calorie malnutrition (ICD-10) Acute exacerbation of chronic low back pain ?M54.50 - Low back pain, unspecified (ICD-10) ?G89.29 - Other chronic pain (ICD-10) Hyperlipidemia ?E78.5 - Hyperlipidemia, unspecified (ICD-10) Iron deficiency anemia ?D50.9 - Iron deficiency anemia, unspecified (ICD-10) Lumbar radiculopathy ?M54.16 - Radiculopathy, lumbar region (ICD-10) Chronic prescription opiate use ?Z79.891 - senior care (current) use of opiate analgesic (ICD-10) Sacroiliac joint pain ?M53.3 - Sacrococcygeal disorders, not elsewhere classified (ICD-10) Muscle spasm ?M62.838 - Other muscle spasm (ICD-10) Cervical spondylosis ?M47.812 - Spondylosis without myelopathy or radiculopathy, cervical region (ICD-10) Lumbar stenosis with neurogenic claudication ?M48.062 - Spinal stenosis, lumbar region with neurogenic claudication (ICD-10) Compression fracture of L1 vertebra ?S32.010A - Wedge compression fracture of first lumbar vertebra, initial encounter for closed fracture (ICD-10) Tubal ?O00.109 - Unspecified tubal without intrauterine (ICD-10) TMJ (dislocation of temporomandibular joint) ?S03.00XA - Dislocation of jaw, unspecified side, initial encounter (ICD-10) Upper back pain ?M54.9 - Dorsalgia, unspecified (ICD-10) Back pain ?M54.9 - Dorsalgia, unspecified (ICD-10) Neck pain ?M54.2 - Cervicalgia (ICD-10) Osteoarthritis ?M19.90 - Unspecified osteoarthritis, unspecified site (ICD-10) Obesity ?E66.9 - Obesity, unspecified (ICD-10) Heartburn ?R12 - Heartburn (ICD-10) Acid reflux ?K21.9 - Gastro-esophageal reflux disease without esophagitis (ICD-10) Smoker ?F17.200 - Nicotine dependence, unspecified, uncomplicated (ICD-10) Surgical History H/O unilateral salpingectomy ?Z90.79 - Acquired absence of other genital organ(s) (ICD-10) S/P lumbar spine operation ?Z98.890 - Other specified postprocedural states (ICD-10) H/O: hysterectomy ?Z90.710 - Acquired absence of both cervix and uterus (ICD-10) Family History Mother Family history of CHF (congestive heart failure) Family history of cancer Family history of diabetes mellitus Family history of hypertension Family history of myocardial infarction Social History Within the past year, how often did you have a drink containing alcohol: monthly or less Smoking status: Light tobacco smoker Non-prescribed substance use: denies use Previous occupational history: retired/disability Highest level of school completed/degree received: high school graduate Are you now , , , , never or living with a partner: In a typical week, how many times do you talk on the telephone with family, friends, or neighbors: 3 or more times per week How often do you get together with friends or relatives: 3 or more times per week How often do you attend taoist or tenriism services: never Little interest or pleasure in doing things: not at all Feeling down, depressed, or hopeless: not at all Feel stressed/tense/nervous/anxious/difficulty sleeping: not at all Do you think of yourself as: straight/heterosexual Gender Identity: female Meds Home Medications and Allergies Home Medications ?Medication ?Instructions ?Recorded ?Confirmed ?Type alendronate 70 mg tablet 70 mg PO QWEEK 07/20/22 10/26/24 History allopurinol 300 mg tablet 300 mg PO DAILY 07/20/22 10/26/24 History aspirin 81 mg tablet,delayed 81 mg PO DAILY 07/20/22 10/26/24 History release (Adult Aspirin Regimen) divalproex 500 mg tablet,delayed 500 mg PO BID 07/20/22 10/26/24 History release (Depakote) multivitamin 1 tab PO DAILY 07/20/22 10/26/24 History oxycodone-acetaminophen 5 mg-325 1 tab PO DAILY PRN pain 07/20/22 10/26/24 History mg tablet prasterone (DHEA) 50 mg capsule 25 mg PO DAILY 07/20/22 10/26/24 History (DHEA) famotidine 20 mg tablet 20 mg PO BID 06/08/23 10/26/24 History rizatriptan 10 mg tablet 10 mg PO Q2H PRN migraine headache 06/08/23 10/26/24 History rosuvastatin 20 mg tablet 20 mg PO DAILY 06/08/23 10/26/24 History clindamycin phosphate 1 % lotion 1 applic topical DAILY 09/21/24 10/26/24 History (Cleocin T) furosemide 20 mg tablet 20 mg PO .every other day edema 09/21/24 10/26/24 History diclofenac sodium 75 mg 75 mg PO BID PRN pain #0 tabs 09/22/24 10/26/24 Rx tablet,delayed release metformin 500 mg tablet 500 mg PO BID 09/22/24 10/26/24 History semaglutide 2 mg/dose (8 mg/3 mL) 2 mg subcut Q7D 09/22/24 10/26/24 History subcutaneous pen injector (Ozempic) baclofen 10 mg tablet 10 mg PO BID 10/07/24 10/26/24 History pregabalin 75 mg capsule (Lyrica) 75 mg PO BID 10/26/24 10/26/24 History Allergies Allergy/AdvReac Type Severity Reaction Status Date / Time No Known Drug Allergies Allergy Verified 10/26/24 10:35 Exam Constitutional Documenting provider has reviewed patient's vital signs: yes Common normals: no apparent distress, oriented x3, healthy appearing, alert and well nourished General appearance: cooperative [facility] Common normals: normocephalic, hearing grossly normal bilaterally and moist oral mucous membranes Head and scalp: normocephalic Eye Common normals: PERRL Pupil: PERRL Neck & C-Spine Common normals: full ROM General: normal visual inspection Chest Common normals: inspection of chest normal Respiratory Common normals: normal respiratory effort, no retractions and no use of accessory muscles Back & Pelvis Lumbar spine/lower back: pain with ROM, lumbar spinal tenderness and straight leg raise negative bilaterally; no paraspinal muscle tenderness and no paraspinal muscle spasm Other: right sij negative paris(patricks), gaenslens, thigh thrust, compression test positive facet loading and tenderness left L4-S1. positive facet loading bilaterally sensation intact BLE Neuro Common normals: oriented x3 Sensorium/orientation: alert Motor exam: strength 5/5 throughout and no movement abnormalities noted Psych Common normals: mental status grossly normal, thought process normal, cooperative, affect normal, speech normal and activity/motor behavior normal Speech: normal speech Thought process: normal thought process Results Additional Findings Additional findings: If on a controlled substance or opioids, I have checked an [place] report on this patient and there are no aberrancies noted in the prescribing history.??If on a controlled substance or opioid a drug screen was completed and reviewed within the last year, and if there has not been a drug screen completed we ordered one today to monitor higher risk, state monitored pain medication use. As part of providing excellent, safe, comprehensive care, the following was completed at our patient's visit: 1. A medication reconciliation and review to ensure accurate knowledge of current/active medications, including asking our patients to inform us about any [id number] medications or herbal remedies/nutritional supplements/alternative remedies. 2. A review to specifically ensure our patients have had annual screening for screening for depression, screening for tobacco use, and screening for unhealthy alcohol use. For concerning screenings had a discussion with the patient, provided patient education, and recommended follow-up with primary care provider when appropriate. If patient noted with a risk of falling, they received education on strength, gait, and balance training to prevent future risk of falling. Portions of this note may have been carried over from the previous visit and updated as appropriate. Please note this office utilizes paper charting in addition to the electronic medical record. A list of current medications, vitals, and PMH is available there as the clinical staff outside of myself do not have access to [employer] charting during the clinic day operations. As part of providing quality comprehensive care the current medications, vitals, and PMH were reviewed in the paper chart. Assessment and Plan Assessment and Plan (1) Sacroiliitis: Assessment and Plan: 06/22/24 right SIJ injection >50% improvement for 3 months 10-26-24 right SIJ injection >50% improvement ongoing (2) Lumbar spondylosis: Assessment and Plan: - right L4-5 L5-S1 facet RFA >50% improvement in pain and functional ability greater than 6 months (3) Myalgia, other site: (4) Chronic prescription opiate use: Assessment and Plan: I feel these medications are improving the patient's quality of life and allow them to tolerate activities of daily living as well as participate in recreational activity.? The patient does not report intolerable side effects. The patient is NOT opioid naive and non-pharmacologic and non-opioid treatment has failed to significantly relieve the patient's pain and improve functionality. The patient has a diagnosis that is related to a somatic or visceral pain etiology. ? ?? I reviewed with the patient the potential risks and side effects with the use of? opioid medications including but not limited to respiratory depression,? sedation, and even . Within the last 12 months I have verified the patient has access to naloxone should? these effects occur. The patient was advised to let? their family know they had Naloxone in case they would need to administer? the medication. I advised the patient to avoid the use of any other? sedation substances including alcohol, THC, and benzodiazepines while? taking opioid medications due to the risk of compounding side effects and? detrimental outcomes. within the last 12 months I have reviewed the [employer], pain treatment agreement and urine drug screen.? ?? A drug screen was completed within the last year, and no aberrancies were noted regarding their use of controlled substances. The patient understands they are subject to the terms and conditions of the pain contract that they have signed. ? ?? I have checked an [place] report on this patient today and there are no aberrancies noted in the prescribing history.? (5) Sacroiliac joint pain: (6) Lumbar stenosis with neurogenic claudication: Plan bilateral L4-5 L5-S1 facet RFA for facet mediated low back pain under fluoroscopy. previously underwent right L4-5 L5-S1 facet RFA with significant relief, noted >80% improvement in pain while anesthetized from bilateral L4-5 L5-S1 MBB #1 and #2 previously as preop pain up to 9/10 post op pain 0-1/10 while anesthetized. continue current medications continue HEP as tolerated and continue care with home health/PT f/u 1 month after RFA complete
== END 2024-11-04 10:13 | disposition home or self-care (01) ==
LOC: PM 10:12
PROVIDERS: PCP Nurse Practitioner; Visit Provider Nurse Practitioner
DX: M46.1 Sacroiliitis, not elsewhere classified (principal); M47.816 Spondylosis without myelopathy or radiculopathy, lumbar region; M79.18 Myalgia, other site; Z79.891 Long term (current) use of opiate analgesic; M53.3 Sacrococcygeal disorders, not elsewhere classified; M48.062 Spinal stenosis, lumbar region with neurogenic claudication
CPT/HCPCS: G0463

== ENCOUNTER 2024-11-30 07:34 | Day surgery (SDC) | payer OTHER, MEDICARE, SELFPAY ==
--- OUTSIDE RECORDS SUMMARY | 2024-06-10 06:00 | XMS_ITS ---
Author Organization The [facility] in [place] Address [address] [place] [address] Care Team Providers Care [employer]her [employer] Name Role Phone Maricel HOLLIS, Primary Care Provider Carroll Hidalgo [phone] REASON FOR VISIT 1 year f/u from initial injury Encounters Encounter Location Date Provider Diagnosis [facility] (PODIATRY) [address] [place] [address] [place] [address] 06/10/2024 Carroll Jefferson Plan Of Treatment No Information Progress Notes * Jaun WEIRB:1965 (59 yo F)Acc No.[id number]:06/10/2024 UNLOCKED PROGRESS NOTE Follow Up Patient: Brian PENA Provider: Latoya Jefferson DPM, MS :1965 A ge:58 Y S ex:Female Date:06/10/2024 Address:[address] [place], [place] [address] Pcp:Shaikh Maricel MD Subjective: * Chief Complaints: * 1 . 1 year f/u from initial injury. * Medical History: Objective: * Vitals: Assessment: Plan: * Treatment: * * Electronic signature of Freddie Jefferson DPM on 11/30/2024 at 07:39 AM EDT Sign off status: Pending Visit Status: O FF CANC (OFFICE CANCEL) * Provider: Latoya Jefferson DPM, MS Date: 0 06/10/2024 Generated for Danyel portillo/Roxanne/Mohamud on: 1 07:39 AM EDT
--- OUTSIDE RECORDS SUMMARY | 2024-11-16 20:00 | XMS_ITS | Clinical Summary ---
Author Organization Unknown Care Team Providers Care Credit Control Assistant Name Role Phone GRACE EVENT PRODUCER, JOEL Unavailable Unavailable WENDY RN, BJORN Unavailable Unavailable LATRELL ARCHITECTURAL MODEL MAKER, NAHOMY Unavailable Unavailable COPJETT TRINY, ZEYAD Unavailable Unavailable ENRIQUE OT, NIKOLAY Unavailable Unavailable GOSCHE OT, MARK Unavailable Unavailable DUVALL PT, JUSTINA Unavailable Unavailable KOHLENBERG ARCHITECTURAL MODEL MAKER, ELLIOTT Unavailable Unavailcurtis TAN PT, BERHANE Unavailable Unavailable ASHLY AGOSTO, SAMAN Unavailable Unavailable SHERIF PT, SUMMER Unavailable Unavailabl e KARINA ARCHITECTURAL MODEL MAKER, EMILY Unavailable Unavailable DICK ACHARYA, NORBERTO Unavailable Unavailcurtis GOMEZ RN, NARGIS Unavailable Unavailable JOCE ACHARYA, FRAN Unavailable Unavailable PRICILA ARCHITECTURAL MODEL MAKER, BLANCA Unavailable Unavailable Payers Payer Name Policy Type Policy Number Effective Date Expira tion Date [facility] ([id number]) [id number] MEDICARE [facility] MILES PGBA (PD) [id number] Problems Condition Name Condition Details Condition Category Status Onset Date Resolution Date Last Treatment Date Treating Clinician Comments METABOLIC ENCEPHALOPAT HY Active 09-22 00:00: 00 TYPE 2 DIABETES MELLITUS WITHOUT COMPLICATION S Active 09-24 00:00: 00 ESSENTIAL (PRIMARY) HYPERTENSION Active 09-22 00:00: 00 MIGRAINE, UNSP, NOT INTRACTABLE, WITHOUT STATUS MIGRAINOSUS Active 09-24 00:00: 00 OTHER SPONDYLOSIS WITH RADICULOPATH Y, LUMBAR REGION Active 09-24 00:00: 00 IRON DEFICIENCY ANEMIA, UNSPECIFIED Active 09-24 00:00: 00 OTHER MUSCLE SPASM Active 09-24 00:00: 00 SPONDYLOSIS W/O MYELOPATHY OR RADICULOPATH Y, CERVICAL REGION Active 09-24 00:00: 00 SACROCOCCYGE AL DISORDERS, NOT ELSEWHERE CLASSIFIED Active 09-24 00:00: 00 SPINAL STENOSIS, LUMBAR REGION WITHOUT NEUROGENIC GABBIE Active 09-24 00:00: 00 OTHER CHRONIC PAIN Active 09-24 00:00: 00 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, ACC, SUBS Active 09-24 00:00: 00 MILD PROTEIN-NEELA CASSIA MALNUTRITION Active 09-24 00:00: 00 HYPOMAGNESEM IA Active 09-24 00:00: 00 HYPERLIPIDEM IA, UNSPECIFIED Active 09-24 00:00: 00 NICOTINE DEPENDENCE, CIGARETTES, UNCOMPLICATE D Active 09-24 00:00: 00 MORBID (SEVERE) OBESITY DUE TO EXCESS CALORIES Active 09-24 00:00: 00 BODY MASS INDEX [BMI] 37.0-37.9, ADULT Active 09-24 00:00: 00 RESIDENTIAL (CURRENT) USE OF ASPIRIN Active 09-24 00:00: 00 WET END TESTER (CURRENT) USE OF ORAL HYPOGLYCEMIC DRUGS Active 09-24 00:00: 00 LNG TRM (CRNT) USE INJECTABLE NON-INSULIN ANTIDIABETIC DRUGS Active 09-24 00:00: 00 ACQUIRED ABSENCE OF OTHER GENITAL ORGAN(S) Active 09-24 00:00: 00 ACQUIRED ABSENCE OF UTERUS WITH REMAINING CERVICAL STUMP Active 09-24 00:00: 00 Allergies, Adverse Reactions, Alerts Allergy Name Allergy Type Status Severity Reaction(s) Onset Date Inactive Date Treating Clinician Comments NKA Propensity to adverse reactions Active 2024-09 13:56:3 0 Medications Ordered Medication Name Filled Medication Name Start Date Stop Date Current Medication? Ordering Clinician Indication Dosage Frequency Signature (SIG) Comments Components acetaminoph en 500 mg tablet 09-24 00:00: 00 Yes [id number] PAIN 2 tablet EVERY 8 HOURS 2 tablet EVERY 8 HOURS (route: oral) Med Classific ation: Analgesic , Anti-infl ammatory or Antipyret ic alendronate 70 mg tablet 09-24 00:00: 00 Yes [id number] BONE HEALTH 1 tablet WEEKLY 1 tablet WEEKLY (route: oral) Med Classific ation: Endocrine allopurinol 300 mg tablet 09-24 00:00: 00 Yes [id number] GOUT 1 tablet DAILY 1 tablet DAILY (route: oral) Med Classific ation: Gout and Hyperuric emia Therapy aspirin 81 mg tablet,conor yed release 09-24 00:00: 00 Yes [id number] BLOOD THINNER 1 tablet DAILY 1 tablet DAILY (route: oral) Med Classific ation: Hematolog ical Agents baclofen 20 mg tablet 09-24 00:00: 00 Yes [id number] MUSCLE SPASM 0.5 tablet 2 TIMES DAILY 0.5 tablet 2 TIMES DAILY (route: oral) Med Classific ation: Locomotor System colchicine 0.6 mg capsule 09-24 00:00: 00 Yes [id number] GOUT Per instruc tions NEEDED Per instructio ns NEEDED (route: oral) Med Classific ation: Gout and Hyperuric emia Therapy DHEA 50 mg tablet 09-24 00:00: 00 Yes [id number] SUPPLEMENT 1 tablet DAILY 1 tablet DAILY (route: oral) Med Classific ation: Alternati ve Therapy diclofenac sodium 75 mg tablet,conor yed release 09-24 00:00: 00 Yes [id number] PAIN 1 tablet 2 TIMES DAILY 1 tablet 2 TIMES DAILY (route: oral) Med Classific ation: Analgesic , Anti-infl ammatory or Antipyret ic Digestive Advantage Probiotic Gummy 250 million cell chewable tablet 09-24 00:00: 00 Yes [id number] SUPPLEMENT 2 tablet DAILY 2 tablet DAILY (route: oral) Med Classific ation: Gastroint estinal Therapy Agents divalproex 500 mg tablet,conor yed release 09-24 00:00: 00 Yes [id number] MIGRAINES 1 tablet 2 TIMES DAILY 1 tablet 2 TIMES DAILY (route: oral) Med Classific ation: Central Nervous System Agents famotidine 20 mg tablet 09-24 00:00: 00 Yes [id number] HEARTBURN 1 tablet 2 TIMES DAILY 1 tablet 2 TIMES DAILY (route: oral) Med Classific ation: Gastroint estinal Therapy Agents furosemide 20 mg tablet 09-24 00:00: 00 Yes [id number] EDEMA 0.5 tablet EVERY OTHER DAY 0.5 tablet EVERY OTHER DAY (route: oral) Med Classific ation: Cardiovas cular Therapy Agents ibuprofen 200 mg tablet 09-24 00:00: 00 Yes [id number] PAIN 1 tablet EVERY 6 HOURS 1 tablet EVERY 6 HOURS (route: oral) Med Classific ation: Analgesic , Anti-infl ammatory or Antipyret ic metformin 500 mg tablet 09-24 00:00: 00 Yes [id number] DIABETES 1 tablet 2 TIMES DAILY 1 tablet 2 TIMES DAILY (route: oral) Med Classific ation: Endocrine Multivitami n Gummies 200 mcg chewable tablet 09-24 00:00: 00 Yes [id number] SUPPLEMENT 2 tablet DAILY 2 tablet DAILY (route: oral) Med Classific ation: Electroly te Balance-N utritiona l Products naloxone 4 mg/actuatio n nasal spray 09-24 00:00: 00 Yes [id number] OVERDOSE 1 spray NEEDED 1 spray A S NEEDED (route: nasal) Med Classific ation: Antidotes and other Reversal Agents Osteo Bi-Flex 250 mg-200 mg tablet 09-24 00:00: 00 Yes [id number] SUPPLEMENT 1 tablet DAILY 1 tablet DAILY (route: oral) Med Classific ation: Alternati ve Therapy oxycodone-a cetaminophe n 5 mg-325 mg tablet 09-24 00:00: 00 Yes [id number] SEVERE PAIN 1 tablet DAILY 1 tablet DAILY (route: oral) Med Classific ation: Analgesic , Anti-infl ammatory or Antipyret ic Ozempic 2 mg/dose (8 mg/3 mL) subcutaneou s pen injector 09-24 00:00: 00 Yes [id number] WEIGHT LOSS 2 mg WEEKLY 2 mg WEEKLY (route: subcutaneo us) Med Classific ation: Endocrine pregabalin 150 mg capsule 09-24 00:00: 00 Yes [id number] NERVE PAIN 1 capsule DAILY 1 capsule DAILY (route: oral) Med Classific ation: Central Nervous System Agents rosuvastati n 20 mg tablet 09-24 00:00: 00 Yes [id number] CHOLESTEROL 1 tablet DAILY 1 tablet DAILY (route: oral) Med Classific ation: Cardiovas cular Therapy Agents Vitamin C 250 mg chewable tablet 09-24 00:00: 00 Yes [id number] SUPPLEMENT 2 tablet DAILY 2 tablet DAILY (route: oral) Med Classific ation: Electroly te Balance-N utritiona l Products Vital Signs Vital Name Observation Time Observation Value Commen ts Temperature 2024-11-11 09:05:00.000 97.6 [degF] Temperature 2024-11-03 15:29:00.000 97.3 [degF] Temperature 2024-10-26 14:39:00.000 98.5 [degF] Temperature 2024-10-21 09:15:00.000 96.9 [degF] Temperature 2024-10-13 09:08:00.000 98 [degF] Temperature 2024-10-09 13:25:00.000 98.3 [degF] Temperature 2024-10-06 09:50:00.000 98.2 [degF] Temperature 2024-10-05 10:15:00.000 98 [degF] Temperature 2024-10-02 10:49:00.000 98.4 [degF] Temperature 2024-09-28 15:21:00.000 97.4 [degF] Temperature 2024-09-28 13:39:00.000 98.4 [degF] Temperature 2024-09-24 10:21:00.000 97.8 [degF] BMI (%) 2024-09-24 10:21:00.000 37 kg/m2 Height 2024-09-24 10:21:00.000 61 [in_us] Pulse 2024-11-11 09:05:00.000 85 /min Pulse 2024-11-03 15:29:00.000 94 /min Pulse 2024-10-26 14:39:00.000 95 /min Pulse 2024-10-21 09:15:00.000 99 /min Pulse 2024-10-13 09:08:00.000 100 /min Pulse 2024-10-09 13:25:00.000 90 /min Pulse 2024-10-06 09:50:00.000 88 /min Pulse 2024-10-05 10:15:00.000 88 /min Pulse 2024-10-02 10:49:00.000 86 /min Pulse 2024-09-28 15:21:00.000 91 /min Pulse 2024-09-28 13:39:00.000 88 /min Pulse 2024-09-24 10:21:00.000 98 /min O2 Saturation (%) 2024-11-11 09:05:00.000 93 % O2 Saturation (%) 2024-11-03 15:29:00.000 93 % O2 Saturation (%) 2024-10-26 14:39:00.000 95 % O2 Saturation (%) 2024-10-21 09:15:00.000 95 % O2 Saturation (%) 2024-10-13 09:08:00.000 97 % O2 Saturation (%) 2024-10-09 13:25:00.000 94 % O2 Saturation (%) 2024-10-06 09:50:00.000 95 % O2 Saturation (%) 2024-10-05 10:15:00.000 95 % O2 Saturation (%) 2024-10-02 10:49:00.000 97 % O2 Saturation (%) 2024-09-28 15:21:00.000 96 % O2 Saturation (%) 2024-09-28 13:39:00.000 98 % O2 Saturation (%) 2024-09-24 10:21:00.000 98 % Respirations 2024-11-11 09:05:00.000 16 /min Respirations 2024-11-03 15:29:00.000 16 /min Respirations 2024-10-26 14:39:00.000 16 /min Respirations 2024-10-21 09:15:00.000 16 /min Respirations 2024-10-13 09:08:00.000 16 /min Respirations 2024-10-09 13:25:00.000 16 /min Respirations 2024-10-06 09:50:00.000 16 /min Respirations 2024-10-05 10:15:00.000 16 /min Respirations 2024-10-02 10:49:00.000 16 /min Respirations 2024-09-28 15:21:00.000 18 /min Respirations 2024-09-28 13:39:00.000 16 /min Respirations 2024-09-24 10:21:00.000 18 /min Weight (lbs) 2024-09-24 10:21:00.000 201 [lb_av] Systolic Blood Pressure 2024-11-11 09:05:00.000 126 mm [Hg] Systolic Blood Pressure 2024-11-03 15:29:00.000 114 mm [Hg] Systolic Blood Pressure 2024-10-26 14:39:00.000 110 mm [Hg] Systolic Blood Pressure 2024-10-21 09:15:00.000 135 mm [Hg] Systolic Blood Pressure 2024-10-13 09:08:00.000 137 mm [Hg] Systolic Blood Pressure 2024-10-09 13:25:00.000 114 mm [Hg] Systolic Blood Pressure 2024-10-06 09:50:00.000 118 mm [Hg] Systolic Blood Pressure 2024-10-05 10:15:00.000 140 mm [Hg] Systolic Blood Pressure 2024-10-02 10:49:00.000 108 mm [Hg] Systolic Blood Pressure 2024-09-28 15:21:00.000 135 mm [Hg] Systolic Blood Pressure 2024-09-28 13:39:00.000 112 mm [Hg] Systolic Blood Pressure 2024-09-24 10:21:00.000 118 mm [Hg] Diastolic Blood Pressure 2024-11-11 09:05:00.000 76 mm [Hg] Diastolic Blood Pressure 2024-11-03 15:29:00.000 67 mm [Hg] Diastolic Blood Pressure 2024-10-26 14:39:00.000 68 mm [Hg] Diastolic Blood Pressure 2024-10-21 09:15:00.000 81 mm [Hg] Diastolic Blood Pressure 2024-10-13 09:08:00.000 83 mm [Hg] Diastolic Blood Pressure 2024-10-09 13:25:00.000 78 mm [Hg] Diastolic Blood Pressure 2024-10-06 09:50:00.000 76 mm [Hg] Diastolic Blood Pressure 2024-10-05 10:15:00.000 90 mm [Hg] Diastolic Blood Pressure 2024-10-02 10:49:00.000 76 mm [Hg] Diastolic Blood Pressure 2024-09-28 15:21:00.000 75 mm [Hg] Diastolic Blood Pressure 2024-09-28 13:39:00.000 70 mm [Hg] Diastolic Blood Pressure 2024-09-24 10:21:00.000 62 mm [Hg] Plan of Treatment Planned Activity Planned Date Details Comments Future Scheduled Test ALL CONSUL TING/COVERING PHYSICIANS MAY SIGN/ISSUE ORDERS. [code = ALL CONSULTING/COVERING PHYSICIANS MAY SIGN/ISSUE ORDERS.] Future Scheduled Test SKILLED NU RSE TO REVIEW MEDICATION PROFILE AND RECONCILE MEDICATIONS NEEDED. SKILLED NURSE MAY INSTRUCT AND REINFORCE MEDICATION TEACHING RELATED TO USE OF MEDICATIONS TO TREAT DISEASE PROCESSES. [code = SKILLED NURSE TO REVIEW MEDICATION PROFILE AND RECONCILE MEDICATIONS NEEDED. SKILLED NURSE MAY INSTRUCT AND REINFORCE MEDICATION TEACHING RELATED TO USE OF MEDICATIONS TO TREAT DISEASE PROCESSES.] Future Scheduled Test PHYSICAL T HERAPIST TO EVALUATE/ASSESS AND DEVELOP PHYSICAL THERAPY PLAN OF CARE TO BE SIGNED BY THE PHYSICIAN. [code = PHYSICAL THERAPIST TO EVALUATE/ASSESS AND DEVELOP PHYSICAL THERAPY PLAN OF CARE TO BE SIGNED BY THE PHYSICIAN.] Future Scheduled Test OCCUPATION AL THERAPIST TO EVALUATE/ASSESS AND DEVELOP OCCUPATIONAL THERAPY PLAN OF CARE TO BE SIGNED BY THE PHYSICIAN. [code = OCCUPATIONAL THERAPIST TO EVALUATE/ASSESS AND DEVELOP OCCUPATIONAL THERAPY PLAN OF CARE TO BE SIGNED BY THE PHYSICIAN.] Future Scheduled Test SKILLED NU RSE TO EVALUATE AND DEVELOP PLAN OF CARE TO BE COUNTERSIGNED BY PHYSICIAN. SKILLED NURSE TO ASSESS/EVALUATE ENCEPHALOPATHY AND CO-MORBID CONDITIONS INCLUDING DIABETES AND OTHER CONDITIONS THAT PRESENT THEMSELVES DURING THE COURSE OF THIS EPISODE TO IDENTIFY CHANGES AND INTERVENE TO MINIMIZE COMPLICATIONS. [code = SKILLED NURSE TO EVALUATE AND DEVELOP PLAN OF CARE TO BE COUNTERSIGNED BY PHYSICIAN. SKILLED NURSE TO ASSESS/EVALUATE ENCEPHALOPATHY AND CO-MORBID CONDITIONS INCLUDING DIABETES AND OTHER CONDITIONS THAT PRESENT THEMSELVES DURING THE COURSE OF THIS EPISODE TO IDENTIFY CHANGES AND INTERVENE TO MINIMIZE COMPLICATIONS.] Future Scheduled Test SKILLED NU RSE TO PROVIDE MONITORING FOR THE PRESENCE OF SKIN LESIONS ON THE LOWER EXTREMITIES AND TEACHING/REINFORCEMENT REGARDING PROPER DIABETIC FOOT CARE. [code = SKILLED NURSE TO PROVIDE MONITORING FOR THE PRESENCE OF SKIN LESIONS ON THE LOWER EXTREMITIES AND TEACHING/REINFORCEMENT REGARDING PROPER DIABETIC FOOT CARE.] Future Scheduled Test SKILLED NU RSE TO PROVIDE AND INSTRUCT REGARDING FALL PREVENTION INTERVENTIONS. [code = SKILLED NURSE TO PROVIDE AND INSTRUCT REGARDING FALL PREVENTION INTERVENTIONS.] Future Scheduled Test SKILLED NU RSE TO MONITOR PLAN FOR CURRENT TREATMENT OF DEPRESSION SUCH EFFECTS OF MEDICATION AND/OR NEED FOR REFERRAL FOR OTHER TREATMENT. [code = SKILLED NURSE TO MONITOR PLAN FOR CURRENT TREATMENT OF DEPRESSION SUCH EFFECTS OF MEDICATION AND/OR NEED FOR REFERRAL FOR OTHER TREATMENT.] Future Scheduled Test SKILLED NU RSE TO PROVIDE/INSTRUCT REGARDING INTERVENTION(S) TO MONITOR AND MITIGATE PAIN. [code = SKILLED NURSE TO PROVIDE/INSTRUCT REGARDING INTERVENTION(S) TO MONITOR AND MITIGATE PAIN.] Future Scheduled Test DISCHARGE HOME HEALTH SERVICES WHEN GOALS ARE MET OR SKILLED CARE NO LONGER REQUIRED. [code = DISCHARGE HOME HEALTH SERVICES WHEN GOALS ARE MET OR SKILLED CARE NO LONGER REQUIRED.] Future Scheduled Test PATIENT IS AT RISK FOR HOSPITALIZATION OR EMERGENCY DEPARTMENT USE DUE TO FALLS. TEACH PATIENT/CAREGIVER TO CALL US FIRST . INFORM ON WHO AND WHEN TO CALL FOR SYMPTOMS BASED ON ZONE TOOLS. INSTRUCT ON MITIGATION OF IDENTIFIED HOSPITAL OR EMERGENCY DEPARTMENT RISK FACTORS. [code = PATIENT IS AT RISK FOR HOSPITALIZATION OR EMERGENCY DEPARTMENT USE DUE TO FALLS. TEACH PATIENT/CAREGIVER TO CALL US FIRST . INFORM ON WHO AND WHEN TO CALL FOR SYMPTOMS BASED ON ZONE TOOLS. INSTRUCT ON MITIGATION OF IDENTIFIED HOSPITAL OR EMERGENCY DEPARTMENT RISK FACTORS.] Future Scheduled Test SKILLED NU RSE MAY PERFORM 2 PRN VISITS FOR MEDICATION COMPLICATIONS [code = SKILLED NURSE MAY PERFORM 2 PRN VISITS FOR MEDICATION COMPLICATIONS] Future Scheduled Test SKILLED NU RSE FOR OASIS DATA COLLECTION/COMPREHENSIVE ASSESSMENT TO DETERMINE SKILLED NEED. THIS MAY INCLUDE RESUMPTION OF CARE ASSESSMENT (NARENDRA) TO DETERMINE SKILLED NEED FOLLOWING INPATIENT DISCHARGE SHOULD PATIENT TRANSFER AND ADMIT TO AN INPATIENT FACILITY DURING CURRENT 60-DAY CERTIFICATION PERIOD. ADDITIONAL VISITS MAY BE REQUIRED FOR RECERT, FOLLOW UP, SIGNIFICANT CHANGE IN CONDITION (SCIC) AND DISCHARGE. HOME HEALTH HAND SOLE SEWER MAY PROVIDE CARE RECOMMENDATIONS NEEDED ON NEW, EXISTING OR CHANGED WOUND OR INTEGUMENTARY CONDITIONS. [code = SKILLED NURSE FOR OASIS DATA COLLECTION/COMPREHENSIVE ASSESSMENT TO DETERMINE SKILLED NEED. THIS MAY INCLUDE RESUMPTION OF CARE ASSESSMENT (NARENDRA) TO DETERMINE SKILLED NEED FOLLOWING INPATIENT DISCHARGE SHOULD PATIENT TRANSFER AND ADMIT TO AN INPATIENT FACILITY DURING CURRENT 60-DAY CERTIFICATION PERIOD. ADDITIONAL VISITS MAY BE REQUIRED FOR RECERT, FOLLOW UP, SIGNIFICANT CHANGE IN CONDITION (SCIC) AND DISCHARGE. HOME HEALTH HAND SOLE SEWER MAY PROVIDE CARE RECOMMENDATIONS NEEDED ON NEW, EXISTING OR CHANGED WOUND OR INTEGUMENTARY CONDITIONS.] Future Scheduled Test OCCUPATION AL THERAPIST TO INSTRUCT ON ENVIRONMENTAL SAFETY ISSUES TO RESOLVE IMMEDIATE SAFETY ISSUES AND/OR REDUCE RISK OF INJURY. OT EVALUATION PERFORMED. NO ADDITIONAL VISITS REQUIRED. OCCUPATIONAL THERAPIST TO INSTRUCT ON BASIC USE OF ASSISTIVE DEVICES/ADAPTIVE EQUIPMENT TO ENSURE PATIENT SAFETY. [code = OCCUPATIONAL THERAPIST TO INSTRUCT ON ENVIRONMENTAL SAFETY ISSUES TO RESOLVE IMMEDIATE SAFETY ISSUES AND/OR REDUCE RISK OF INJURY. OT EVALUATION PERFORMED. NO ADDITIONAL VISITS REQUIRED. OCCUPATIONAL THERAPIST TO INSTRUCT ON BASIC USE OF ASSISTIVE DEVICES/ADAPTIVE EQUIPMENT TO ENSURE PATIENT SAFETY.] Future Scheduled Test PHYSICAL T HERAPIST TO PROVIDE SKILLED TEACHING/REINFORCEMENT OF MANAGEMENT OF HYPERTENSION. PHYSICAL THERAPIST TO PROVIDE INSTRUCTIONS REGARDING MEASURES TO CONTROL CONSTIPATION. PHYSICAL THERAPIST FOR INSTRUCTIONS/REINFORCEMENT OF DIABETIC CARE TO INCLUDE MANAGEMENT OF BLOOD SUGARS DURING ACTIVITY AND DIABETIC FOOT CARE. PHYSICAL THERAPIST TO EVALUATE/ASSESS AND DEVELOP PHYSICAL THERAPY PLAN OF CARE TO BE SIGNED BY THE PHYSICIAN. PHYSICAL THERAPY TO ESTABLISH/UPGRADE HOME EXERCISE PROGRAM AND PROVIDE THERAPEUTIC EXERCISES AND SOFT TISSUE/JOINT MOBILIZATION DESIGNED TO RESTORE FUNCTIONAL STRENGTH AND ROM. PHYSICAL THERAPY TO PROVIDE TECHNIQUES DESIGNED TO IMPROVE BED MOBILITY. PHYSICAL THERAPY TO INSTRUCT IN SAFE TRANSFERS WITH APPROPRIATE BODY MECHANICS AND EQUIPMENT. PHYSICAL THERAPIST TO EDUCATE PATIENT IN FALL PREVENTION AND PROVIDE BALANCE TRAINING INTERVENTIONS TO REDUCE FALL RISK AND ENHANCE FUNCTIONAL MOBILITY. PHYSICAL THERAPY TO EVALUATE GAIT AND PROVIDE GAIT TRAINING USING APPROPRIATE ASSISTIVE DEVICE TO ENSURE PATIENT SAFETY. PHYSICAL THERAPIST TO PROVIDE EDUCATION TO PATIENT/CAREGIVER RELATED TO SAFETY IN THE HOME ENVIRONMENT. PHYSICAL THERAPIST TO PROVIDE INSTRUCTION REGARDING PAIN CONTROL INCLUDING PHARMACOLOGIC AND NON-PHARMACOLOGIC METHODS. PHYSICAL THERAPIST TO PROVIDE MONITORING FOR THE PRESENCE OF SKIN LESIONS ON THE LOWER EXTREMITIES AND TEACHING/REINFORCEMENT REGARDING PROPER DIABETIC FOOT CARE. DISCHARGE HOME HEALTH SERVICES WHEN GOALS ARE MET OR SKILLED CARE NO LONGER REQUIRED. PATIENT IS AT RISK FOR HOSPITALIZATION OR EMERGENCY DEPARTMENT USE DUE TO FALLS R NEUROLOGICAL ISSUES DUE TO PMHX. TEACH PATIENT/CAREGIVER TO CALL US FIRST . INFORM ON WHO AND WHEN TO CALL FOR SYMPTOMS BASED ON ZONE TOOLS. INSTRUCT ON MITIGATION OF IDENTIFIED HOSPITAL OR EMERGENCY DEPARTMENT RISK FACTORS. PHYSICAL THERAPIST TO MONITOR PLAN FOR CURRENT TREATMENT OF DEPRESSION SUCH EFFECTS OF MEDICATION AND/OR NEED FOR REFERRAL FOR OTHER TREATMENT. PHYSICAL THERAPIST TO REVIEW MEDICATION PROFILE AND RECONCILE MEDICATIONS NEEDED. PHYSICAL THERAPIST MAY INSTRUCT AND REINFORCE MEDICATION TEACHING RELATED TO USE OF MEDICATIONS TO TREAT DISEASE PROCESSES. ALL CONSULTING/COVERING PHYSICIANS MAY SIGN AND ISSUE ORDERS. [code = PHYSICAL THERAPIST TO PROVIDE SKILLED TEACHING/REINFORCEMENT OF MANAGEMENT OF HYPERTENSION. PHYSICAL THERAPIST TO PROVIDE INSTRUCTIONS REGARDING MEASURES TO CONTROL CONSTIPATION. PHYSICAL THERAPIST FOR INSTRUCTIONS/REINFORCEMENT OF DIABETIC CARE TO INCLUDE MANAGEMENT OF BLOOD SUGARS DURING ACTIVITY AND DIABETIC FOOT CARE. PHYSICAL THERAPIST TO EVALUATE/ASSESS AND DEVELOP PHYSICAL THERAPY PLAN OF CARE TO BE SIGNED BY THE PHYSICIAN. PHYSICAL THERAPY TO ESTABLISH/UPGRADE HOME EXERCISE PROGRAM AND PROVIDE THERAPEUTIC EXERCISES AND SOFT TISSUE/JOINT MOBILIZATION DESIGNED TO RESTORE FUNCTIONAL STRENGTH AND ROM. PHYSICAL THERAPY TO PROVIDE TECHNIQUES DESIGNED TO IMPROVE BED MOBILITY. PHYSICAL THERAPY TO INSTRUCT IN SAFE TRANSFERS WITH APPROPRIATE BODY MECHANICS AND EQUIPMENT. PHYSICAL THERAPIST TO EDUCATE PATIENT IN FALL PREVENTION AND PROVIDE BALANCE TRAINING INTERVENTIONS TO REDUCE FALL RISK AND ENHANCE FUNCTIONAL MOBILITY. PHYSICAL THERAPY TO EVALUATE GAIT AND PROVIDE GAIT TRAINING USING APPROPRIATE ASSISTIVE DEVICE TO ENSURE PATIENT SAFETY. PHYSICAL THERAPIST TO PROVIDE EDUCATION TO PATIENT/CAREGIVER RELATED TO SAFETY IN THE HOME ENVIRONMENT. PHYSICAL THERAPIST TO PROVIDE INSTRUCTION REGARDING PAIN CONTROL INCLUDING PHARMACOLOGIC AND NON-PHARMACOLOGIC METHODS. PHYSICAL THERAPIST TO PROVIDE MONITORING FOR THE PRESENCE OF SKIN LESIONS ON THE LOWER EXTREMITIES AND TEACHING/REINFORCEMENT REGARDING PROPER DIABETIC FOOT CARE. DISCHARGE HOME HEALTH SERVICES WHEN GOALS ARE MET OR SKILLED CARE NO LONGER REQUIRED. PATIENT IS AT RISK FOR HOSPITALIZATION OR EMERGENCY DEPARTMENT USE DUE TO FALLS R NEUROLOGICAL ISSUES DUE TO PMHX. TEACH PATIENT/CAREGIVER TO CALL US FIRST . INFORM ON WHO AND WHEN TO CALL FOR SYMPTOMS BASED ON ZONE TOOLS. INSTRUCT ON MITIGATION OF IDENTIFIED HOSPITAL OR EMERGENCY DEPARTMENT RISK FACTORS. PHYSICAL THERAPIST TO MONITOR PLAN FOR CURRENT TREATMENT OF DEPRESSION SUCH EFFECTS OF MEDICATION AND/OR NEED FOR REFERRAL FOR OTHER TREATMENT. PHYSICAL THERAPIST TO REVIEW MEDICATION PROFILE AND RECONCILE MEDICATIONS NEEDED. PHYSICAL THERAPIST MAY INSTRUCT AND REINFORCE MEDICATION TEACHING RELATED TO USE OF MEDICATIONS TO TREAT DISEASE PROCESSES. ALL CONSULTING/COVERING PHYSICIANS MAY SIGN AND ISSUE ORDERS.] Goal 2024-11-17 Patient Goal - TO GET [facility] ON FEET Goal Provider Goal - Goal Provider Goal - PATIENT WILL DEMONSTRATE COMPLIANCE WITH MEDICATIONS PRESCRIBED. PATIENT/CAREGIVER WILL VERBALIZE/DEMONSTRATE UNDERSTANDING OF MEDICATION SCHEDULE, PURPOSE, SIDE EFFECTS AND AND ANY SPECIAL PRECAUTIONS RELATED TO MEDICATION REGIMEN BY 10/21/24. Goal Provider Goal - PHYSICAL THERAPIST TO EVALUATE/ASSESS AND DEVELOP PHYSICAL THERAPY PLAN OF CARE TO BE SIGNED BY THE PHYSICIAN. Goal Provider Goal - OCCUPATIONAL THERAPY PLAN OF CARE WILL BE ORDERED BY PHYSICIAN AND PROVIDED BY OCCUPATIONAL THERAPY. ALL GOALS TO BE MET BY END OF CURRENTLY APPROVED PLAN OF CARE. Goal Provider Goal - A PLAN OF CARE WILL BE ESTABLISHED THAT MEETS THE PATIENT'S NURSING NEEDS AND COUNTERSIGNED BY PHYSICIAN. Goal Provider Goal - CHANGES IN PATIENT CO-MORBID STATUS WILL BE PROMPTLY IDENTIFIED AND REPORTED TO THE PHYSICIAN. PATIENT/CAREGIVER VERBALIZE/DEMONSTRATE ABILITY TO PROPERLY MANAGE DIABETIC FOOT CARE BY 10/11/24. Goal Provider Goal - CHANGES IN PATIENT CO-MORBID STATUS WILL BE PROMPTLY IDENTIFIED AND REPORTED TO THE PHYSICIAN. PATIENT/CAREGIVER VERBALIZE/DEMONSTRATE MEASURES TO PREVENT FALLS BY 11/10/24. Goal Provider Goal - CHANGES IN PATIENT CO-MORBID STATUS WILL BE PROMPTLY IDENTIFIED AND REPORTED TO THE PHYSICIAN. PATIENT/CAREGIVER VERBALIZE/DEMONSTRATE ABILITY TO PROPERLY MANAGE DEPRESSION BY 10/23/2024 Goal Provider Goal - CHANGES IN PATIENT CO-MORBID STATUS WILL BE PROMPTLY IDENTIFIED AND REPORTED TO THE PHYSICIAN. PATIENT/CAREGIVER VERBALIZE/DEMONSTRATE ABILITY TO PROPERLY MANAGE PAIN BY 11/05/24. Goal Provider Goal - Goal Provider Goal - PATIENT/CAREGIVER WILL VERBALIZE/DEMONSTRATE UNDERSTANDING OF SYMPTOM MANAGEMENT, RESOURCE UTILIZATION, AND MEDICATION MANAGEMENT TO REDUCE UNPLANNED HOSPITAL OR EMERGENCY DEPARTMENT VISITS BY 11/22/24. Goal Provider Goal - Goal Provider Goal - Goal Provider Goal - PATIENT/CAREGIVER VERBALIZES UNDERSTANDING OF SAFETY CONSIDERATIONS AND RECOMMENDATIONS PROVIDED BY OCCUPATIONAL THERAPIST TO RESOLVE IMMEDIATE SAFETY ISSUES AND/OR REDUCE RISK OF INJURY. PATIENT/CAREGIVER VERBALIZES AND DEMONSTRATE UNDERSTANDING OF INSTRUCTIONS PROVIDED BY OCCUPATIONAL THERAPIST REGARDING SAFE USE OF ASSISTIVE DEVICES/ADAPTIVE EQUIPMENT. Goal Provider Goal - PATIENT/CAREGIVER VERBALIZE/DEMONSTRATE ABILITY TO MANAGE HYPERTENSION EVIDENCED BY BLOOD PRESSURE READINGS CONSISTENTLY WITHIN PHYSICIAN APPROVED PARAMETERS BY 10/10/24. PATIENT/CAREGIVER WILL VERBALIZE BOWEL PROGRAM STEPS TO PREVENT CONSTIPATION COMPLICATIONS BY 10/06/24. PATIENT WILL HAVE A REGULAR BM EVERY 2-3 DAYS. PATIENT/CAREGIVER WILL VERBALIZE/DEMONSTRATE KNOWLEDGE OF MANAGEMENT OF DIABETES EVIDENCED BY DECREASED SYMPTOMS, STABILIZATION OF BLOOD GLUCOSE WITHIN PARAMETERS SET BY PHYSICIAN AND NO UNPLANNED HOSPITALIZATIONS BY 10/10/24. A PHYSICAL THERAPY PLAN OF CARE WILL BE ORDERED BY PHYSICIAN AND PROVIDED BY PHYSICAL THERAPY. ALL GOALS TO BE MET BY END OF CURRENTLY APPROVED PLAN OF CARE. PATIENT WILL DEMONSTRATE IMPROVED FUNCTION IN RESPONSE TO SPECIFIC EXERCISE(S), EVIDENCED BY INCREASED INDEPENDENCE IN ACTIVITIES OF DAILY LIVING BY 10/10/24. PATIENT WILL DEMONSTRATE IMPROVED BED MOBILITY EVIDENCED BY ABILITY TO CHANGE POSITION INDEPENDENTLY BY 10/10/24. PATIENT/CAREGIVER WILL DEMONSTRATE SAFE TRANSFERS USING APPROPRIATE BODY MECHANICS AND APPROPRIATE EQUIPMENT BY 10/10/24. PATIENT WILL DEMONSTRATE/VERBALIZE KNOWLEDGE OF INTERVENTIONS TO REDUCE FALL RISK AND IMPROVE FUNCTIONAL MOBILITY EVIDENCED BY NO FALLS BY DISCHARGE. PATIENT WILL DEMONSTRATE SAFE GAIT TECHNIQUE WITH LEAST RESTRICTIVE DEVICE, NEEDED TO IMPROVE FUNCTIONAL MOBILITY AND MINIMIZE RISK OF INJURY BY 10/10/24. PATIENT/CAREGIVER WILL DEMONSTRATE ADEQUATE KNOWLEDGE OF PROVIDING A SAFE HOME SETTING WITHOUT ENVIRONMENTAL HAZARDS BY 09/13/24.0 PATIENT / CAREGIVER WILL VERBALIZE EFFECTIVE PAIN CONTROL AND UNDERSTAND BOTH PHARMACOLOGIC AND NON-PHARMACOLOGIC PAIN CONTROL METHODS BY 10/10/24. CHANGES IN PATIENT CO-MORBID STATUS WILL BE PROMPTLY IDENTIFIED AND REPORTED TO THE PHYSICIAN. PATIENT/CAREGIVER VERBALIZE/DEMONSTRATE ABILITY TO PROPERLY MANAGE DIABETIC FOOT CARE BY 10/06/24. PATIENT/CAREGIVER WILL VERBALIZE/DEMONSTRATE UNDERSTANDING OF SYMPTOM MANAGEMENT, RESOURCE UTILIZATION, AND MEDICATION MANAGEMENT TO REDUCE UNPLANNED HOSPITAL OR EMERGENCY DEPARTMENT VISITS BY 10/10/24. CHANGES IN PATIENT CO-MORBID STATUS WILL BE PROMPTLY IDENTIFIED AND REPORTED TO THE PHYSICIAN. PATIENT/CAREGIVER VERBALIZE/DEMONSTRATE ABILITY TO PROPERLY MANAGE DEPRESSION BY 10/12/2024 PATIENT WILL DEMONSTRATE COMPLIANCE WITH MEDICATIONS PRESCRIBED. PATIENT/CAREGIVER WILL VERBALIZE/DEMONSTRATE UNDERSTANDING OF MEDICATION SCHEDULE, PURPOSE, SIDE EFFECTS, AND ANY SPECIAL PRECAUTIONS RELATED TO MEDICATION REGIMEN BY 10/23/2024 ADDITIONAL ORDERS WILL BE RECEIVED FROM ALTERNATE PHYSICIAN IN A TIMELY MANNER. Reason for Visit INDEPENDENT IN THE COMMUNITY Encounters Start Date/Time End Date/Time Encounter Type Admission Type Attending [facility] Care Department Encounter ID Discharge Date Discharge Status Discharge Condition Discharge Reason Percent Goals Met 2024-09-24 00:00:00 2024-11-17 00:00:00 Outpatient NEW ADMISSION NORBERTO JENNINGS [facility] [id number] 3471-10-07 00:00:00 DISCHARGE TO HOME OR SELF CARE INDEPENDEN T IN THE COMMUNITY GOALS MET 81.97
--- OUTSIDE RECORDS SUMMARY | 2024-11-30 07:37 | XMS_ITS | Encounter Summary ---
Author Organization [facility] Address [address] [place] [place] [address] Care Team Providers Care Director Of Software Development Name Role Phone Jose Chandler MD Primary Care Provider [phone] Ijeoma Drake AIRCRAFT DESIGNER Unavailable [phone] Unallocated, Noms Provider Primary Care Provi shayna Jose Chandler MD Primary Care Provider [phone] Za Wilkerson AIRCRAFT DESIGNER Unavailable [phone] Madhuri Banda DO Unavailable [phone] Encounter Details Date Type Department Care [...] declines to respond 10/02/2023 Social Connection and Isolation Panel Answer Date Recorded In a typical week, how many times do you talk on the phone with family, friends, or neighbors? More than three times a week 10/02/2023 How often do you get togethe r with friends or relatives? Twice a week 10/02/2023 How often do you attend [facility] or restoration services? Patient declined 10/02/2023 Do you belong to any clubs o r organizations such as mandaeism groups, unions, fraternal or athletic groups, or [...] Recorded Patient Health Questionnaire-2 Score 0 10/03/2023 [facility] of Occupat ional [facility] - Occupational Stress Questionnaire Answer Date [...] were you homeless or living in a intermediate (including now)? Patient declined 10/02/2023 Comments Unknown [...] Dermatology [address] [place] [address] Elida Monroy MD [address] [place] [address] 05/03/2025 1:00 PM EDT Office Visit [facility] [address] [place] [id number] Kasi Bennett MD [address] [place] [address] documented as of this encounter Procedures Procedure Name Priority Date/Time Associated Diagnosis Comments XR FOOT LT MIN 3V 10/17/2023 6:5 8 AM EDT documented in this encounter Results * XR FOOT LT MIN 3V (10/17/2023 6:58 AM EDT) Anatomical Region Laterality Modality Other 10/17/2023 6:58 AM EDT Narrative 10/17/2023 7:01 AM EDT [facility] [place] [id number] XRay Report Signed Patient: KARINA WEIR MR#: [id number] : 1965 Acct:[id number] Age/Sex: 57 / F ADM Date: 10/16/23 Loc: EC Attending Dr: Sussy Jefferson D.P.M. Ordering Physician: Sussy Jefferson D.P.M. Date of Service: 10/16/23 Procedure(s): XR foot LT min 3V Accession Number(s): [id number] cc: Shaikh Erica Connelly; Sussy Jefferson D.P.M. The [place] [address] Patient Name: KARINA WEIR MRN: [id number] date: 1965 Sex: F Assigned Patient Location: Current Patient Location: Accession/Order Number: [id number] Exam Date: 10/16/2023 11:20 Report Date: 10/17/2023 [...] Signed By: 10/17/23 0701 DD/ 0658 TD/TT: Greenhouse Instructor: Procedure Note Radiology, Radiologist, - 10/17/2023 [place] [address] XRay Report Signed Patient: KARINA WEIR KMR#: [id number] : 1965Acct:[id number] Age/Sex: 57 / FADM Date: 10/16/23 Loc: EC Attending Dr: Sussy Jefferson D.P.M. Ordering Physician: Sussy Jefferson D.P.M. Date of Service: 10/16/23 Procedure(s): XR foot LT min 3V Accession Number(s): [id number] cc: Shaikh Erica Connelly; Sussy Jefferson D.P.M. [place] [address] Patient Name: KARINA WEIR MRN: [id number] date: 1965 Sex: F Assigned Patient Location: Current Patient Location: Accession/Order Number: [id number] Exam Date: 10/16/2023 11:20 Report Date: 10/17/2023 [...] 06:58 Dictated By: Navid Cortes M.D. Signed By:10/17/2301 DD/ TD/TT: Greenhouse Instructor: us Generic External Data Provider [facility] Final Result documented in this encounter Visit Diagnoses Not on filedocumented in this encounter Care Teams Director Of Software Development Relationship Specialty Start Date End Date Jose Chandler MD PCP - General Family Medicine 09/24/23 11/25/23 Unallocated, Noms MD [address] [place] [address] PCP - General Family Medicine 11/26/23 12/11/23 Jose Chandler MD PCP - General Family Medicine 12/12/23 Ijeoma Drake NP Nurse Practitioner Family Medicine 09/24/23 Za Wilkerson NP [address] [facility] [place] [address] Nurse Practitioner Neurology 04/21/24 Madhuri Banda DO [address] [place] [address] Referring Physician Neurology 04/21/24 documented as of this encounter
--- OUTSIDE RECORDS SUMMARY | 2024-11-30 07:37 | XMS_ITS | Encounter Summary ---
Author Organization [facility] Address [address] [place] [address] Care Team Providers Care Employment Specialist Name Role Phone Ijeoma Drake PLASTIC JIG AND FIXTURE BUILDER Unavailable [phone] Jose Chandler MD Primary Care Provider [phone] Za Wilkerson PLASTIC JIG AND FIXTURE BUILDER Unavailable [phone] Madhuri Banda DO Unavailable [phone] Encounter Details Date Type Department Care Team ([facility] Contact Info) Description 12/23/2023 Clinisync Result Encounter [...] often do you attend chur ch or scientologist services? Patient declined 10/02/2023 Do you belong to any clubs o r organizations such as gnosticist groups, unions, fraternal or athletic groups, or [...] Recorded Patient Health Questionnaire-2 Score 0 10/03/2023 [facility] of Occupat ional [facility] - Occupational Stress Questionnaire Answer Date [...] time in the past 12 m [facility], were you homeless or living in a [...] Dermatology [address] [place] [address] Elida Monroy MD [address] [place] [address] 05/03/2025 1:00 PM EDT Office Visit [facility] [address] [place] [address] Kasi Bennett MD [address] [place] [address] documented as of this encounter Procedures Procedure Name Priority Date/Time Associated Diagnosis Comments XR FOOT LT MIN 3V 12/23/2023 7:3 9 AM EST documented in this encounter Results * XR FOOT LT MIN 3V (12/23/2023 7:39 AM EST) Anatomical Region Laterality Modality Other 12/23/2023 7:39 AM EST Narrative 12/23/2023 7:41 AM EST The [address] [address] XRay Report Signed Patient: KARINA WEIR MR#: [id number] : 1965 Acct:[id number] Age/Sex: 58 / F ADM Date: 12/18/23 Loc: RAD Attending Dr: Sussy ChinchillaPEva Ordering Physician: Sussy Jefferson D.P.M. Date of Service: 12/18/23 Procedure(s): XR foot LT min 3V Accession Number(s): [id number] cc: Shaikh Erica Connelly; Sussy Jefferson D.P.M. The [place] [id number] Patient Name: KARINA WEIR MRN: [id number] date: 1965 Sex: F Assigned Patient Location: RAD Current Patient Location: PT Accession/Order Number: [id number] Exam Date: 12/18/2023 10:58 Report Date: 12/23/2023 [...] Dictated By: Ryan Goldman M.D. Signed By: 12/23/2341 DD/ TD/TT: Coffee Roaster Helper: Procedure Note Radiology, Radiologist, MD - 12/23/2023 [place] [address] XRay Report Signed Patient: KARINA WEIR KMR#: [id number] : 1965Acct:[id number] Age/Sex: 58 / FADM Date: 12/18/23 Loc: RAD Attending Dr: Sussy Jefferson D.P.M. Ordering Physician: Sussy Jefferson D.P.M. Date of Service: 12/18/23 Procedure(s): XR foot LT min 3V Accession Number(s): [id number] cc: Shaikh Erica Connelly; Sussy Jefferson D.P.M. The [place] [id number] Patient Name: KARINA WEIR MRN: [id number] date: 1965 Sex: F Assigned Patient Location: RAD Current Patient Location: PT Accession/Order Number: [id number] Exam Date: 12/18/2023 10:58 Report Date: 12/23/2023 [...] Ryan Goldman M.D. Signed By:12/23/23740 DD/ TD/TT: Coffee Roaster Helper: Generic External Data Provider [facility] Final Result documented in this encounter Visit Diagnoses Not on filedocumented in this encounter Care Teams Employment Specialist Relationship Specialty Start Date End Date Jose Chandler MD PCP - General Family Medicine 12/12/23 Ijeoma Drake NP Nurse Practitioner Family Medicine 09/24/23 Za Wilkerson NP Nurse Practitioner Neurology 04/21/24 Madhuri Banda DO [address] [place] [address] Referring Physician Neurology 04/21/24 documented as of this encounter
--- OUTSIDE RECORDS SUMMARY | 2024-11-30 07:37 | XMS_ITS | Encounter Summary ---
Author Organization [facility] Address [address] [place] [address] Care Team Providers Care Grounds Person Name Role Phone Ijeoma Drake COATER HELPER Unavailable [phone] Jose Chandler MD Primary Care Provider [phone] Za Wilkerson COATER HELPER Unavailable [phone] Madhuri Banda DO Unavailable [phone] Reason for Visit * Reason Comments Med Refill Encounter Details Date Type Department Care Team (Late st Contact Info) Description 05/06/2024 Refill [facility] [address] [facility] [address] Ameena Vera NP [address] [facility] [place] [address] Bilateral lower extremity edema Social History Tobacco [...] often do you attend chur ch or methodist services? Patient declined 10/02/2023 Do you belong to any clubs o r organizations such as yarsanism groups, unions, fraternal or athletic groups, or [...] Recorded Patient Health Questionnaire-2 Score 0 10/03/2023 [facility] of Occupat ional [facility] - Occupational Stress [...] any time in the past 12 m [facility], were you homeless or living [...] Dermatology [address] [place] [address] Elida Monroy MD [address] [place] [address] 05/03/2025 1:00 PM EDT Office Visit [facility] [address] [place] [address] Kasi Bennett MD [address] [place] [address] documented as of this encounter Visit Diagnoses Diagnosis Bilateral lower extremity edema documented in this encounter Care Teams Grounds Person Relationship Specialty Start Date End Date Jose Chandler MD PCP - General Family Medicine 12/12/23 Ijeoma Drake NP Nurse Practitioner Family Medicine 09/24/23 Za Wilkerson NP Nurse Practitioner Neurology 04/21/24 Madhuri Banda DO [address] [place] [address] Referring Physician Neurology 04/21/24 documented as of this encounter
--- OUTSIDE RECORDS SUMMARY | 2024-11-30 07:38 | XMS_ITS | Encounter Summary ---
Author Organization [facility] Address [address] [place] [place] [address] Care Team Providers Care Shoe Associate Name Role Phone Shaikh BUNNY Connelly Primary Care Provider [phone] Jose Chandler MD Primary Care Provider [phone] Ijeoma Drake SUPERVISOR COLD ROLLING Unavailable [phone] Unallocated, Timur Hernandez MD Primary Care Provi shayna Jose Chandler MD Primary Care Provider [phone] Za Wilkerson SUPERVISOR COLD ROLLING Unavailable [phone] Madhuri Banda DO Unavailable [phone] Encounter Details Date Type Department Care Team (Late st Contact Info) Description 08/20/2023 Orders Only [facility] [address] [place] [phone] Danny Christiansen MD [address] [place], [place] [phone] Social History Tobacco Use Types Packs/Day Years [...] MD [address] [place] [address] 05/03/2025 1:00 PM EDT Office Visit [facility] [address] [place] [address] Kasi Bennett MD [address] [place] [address] documented as of this encounter [...] on filedocumented in this encounter Care Teams Shoe Associate Relationship Specialty Start Date End Date Shaikh Connelly MD PCP - General Internal Medicine 05/02/23 09/23/23 Jose Chandler MD PCP - General Family Medicine 09/24/23 11/25/23 Unallocated, Timur Hernandez MD [address] [place] [address] PCP - General Family Medicine 11/26/23 12/11/23 Jose Chandler MD PCP - General Family Medicine 12/12/23 Ijeoma Drake NP Nurse Practitioner Family Medicine 09/24/23 Za Wilkerson NP [address] [facility] [place] [address] Nurse Practitioner Neurology 04/21/24 Madhuri Banda DO [address] [place] [address] Referring Physician Neurology 04/21/24 documented as of this encounter
--- OUTSIDE RECORDS SUMMARY | 2024-11-30 07:38 | XMS_ITS | Encounter Summary ---
Author Organization [facility] Address [address] [facility] [place] [address] Care Team Providers Care Finisher Screwdown Name Role Phone Shaikh BUNNY Connelly Primary Care Provider [phone] Jose Chandelr MD Primary Care Provider [phone] Ijeoma Drake APPLE CHECKER Unavailable [phone] Unallocated, Timur Hernandez MD Primary Care Provi shayna Jose Chandler MD Primary Care Provider [phone] Za Wilkerson APPLE CHECKER Unavailable [phone] Madhuri Banda DO Unavailable [phone] Encounter Details Date Type Department Care [...] Dermatology [address] [place] [address] Elida Monroy MD [address] [place] [address] 05/03/2025 1:00 PM EDT Office Visit [facility] [address] [place] [address] Kasi Bennett MD [address] [place] [address] documented as of this encounter Procedures Procedure Name Priority Date/Time Associated Diagnosis Comments XR FOOT LT MIN 3V 09/04/2023 7:4 9 AM EDT documented in this encounter Results * XR FOOT LT MIN 3V (09/04/2023 7:49 AM EDT) Anatomical Region Laterality Modality Other 09/04/2023 7:49 AM EDT Narrative 09/04/2023 7:52 [place] [address] XRay Report Signed Patient: KARINA DE OLIVEIRA MR#: [id number] : 1965 Acct:[id number] Age/Sex: 57 / F ADM Date: 09/03/23 Loc: EC Attending Dr: Sussy Jefferson D.P.M. Ordering Physician: Sussy Jefferson D.P.M. Date of Service: 09/03/23 Procedure(s): XR foot LT min 3V Accession Number(s): [id number] cc: Shaikh Erica Connelly; Sussy Jefferson D.P.M. The [address] [address] Patient Name: KARINA DE OLIVEIRA MRN: [id number] date: 1965 Sex: F Assigned Patient Location: EC Current Patient Location: Accession/Order Number: [id number] Exam Date: 09/03/2023 15:15 Report Date: 09/04/2023 [...] Signed By: 09/04/23 0752 DD/ 0749 TD/TT: Steward/Stewardess Dining Room: Procedure Note Radiology, Radiologist, MD - 09/04/2023 [place] [address] XRay Report Signed Patient: KARINA DE OLIVEIRA KMR#: [id number] : 1965Acct:[id number] Age/Sex: 57 / FADM Date: 09/03/23 Loc: EC Attending Dr: Sussy Jefferson D.P.M. Ordering Physician: Sussy Jefferson D.P.M. Date of Service: 09/03/23 Procedure(s): XR foot LT min 3V Accession Number(s): [id number] cc: Shaikh Erica Connelly; Sussy Jefferson D.P.M. The [place] [address] Patient Name: KARINA DE OLIVEIRA MRN: [id number] date: 1965 Sex: F Assigned Patient Location: Current Patient Location: Accession/Order Number: [id number] Exam Date: 09/03/2023 15:15 Report Date: 09/04/2023 [...] M.D. Signed By:09/04/23 0752 DD/ 0749 TD/TT: Steward/Stewardess Dining Room: Generic External Data Provider [facility] Final Result documented in this encounter Visit Diagnoses Not on filedocumented in this encounter Care Teams Finisher Screwdown Relationship Specialty Start Date End Date Shaikh Connelly MD PCP - General Internal Medicine 05/02/23 09/23/23 Jose Chandler MD PCP - General Family Medicine 09/24/23 11/25/23 Unallocated, Timur Hernandez MD [address] [place] [address] PCP - General Family Medicine 11/26/23 12/11/23 Jose Chandler MD PCP - General Family Medicine 12/12/23 Ijeoma Drake NP Nurse Practitioner Family Medicine 09/24/23 Za Wilkerson NP [address] [place] [address] Nurse Practitioner Neurology 04/21/24 Madhuri Banda DO [address] [place] [address] Referring Physician Neurology 04/21/24 documented as of this encounter
--- OUTSIDE RECORDS SUMMARY | 2024-11-30 07:38 | XMS_ITS | Encounter Summary ---
Author Organization [facility] Address [address] [facility] [place] [address] Care Team Providers Care Director Of Recruitment Name Role Phone Shaikh BUNNY Connelly Primary Care Provider [phone] Jsoe Chandler MD Primary Care Provider [phone] Ijeoma Drake NURSE FIRST AID Unavailable [phone] Unallocated, Timur Hernandez MD Primary Care Provi shayna Jose Chandler MD Primary Care Provider [phone] Za Wilkerson NURSE FIRST AID Unavailable [phone] Madhuri Banda DO Unavailable [phone] Encounter Details Date Type Department Care [...] Dermatology [address] [place] [address] Elida Monroy MD [address] [place] [address] 05/03/2025 1:00 PM EDT Office Visit [facility] [place] [facility] [address] [place] [address] Kasi Bennett MD [address] [place] [address] documented as of this encounter Procedures Procedure Name Priority Date/Time Associated Diagnosis Comments CT FOOT LT WO CON 09/13/2023 5:0 2 AM EDT documented in this encounter Results * CT FOOT LT WO CON (09/13/2023 5:02 AM EDT) Anatomical Region Laterality Modality Other 09/13/2023 5:02 AM EDT Narrative 09/13/2023 5:05 [place] [address] CT Scan Report Signed Patient: KARINA DE OLIVEIRA MR#: [id number] : 1965 Acct:[id number] Age/Sex: 57 / F ADM Date: 09/12/23 Loc: CT Attending Dr: Sussy Jefferson D.P.M. Ordering Physician: Sussy Jefferson D.P.M. Date of Service: 09/12/23 Procedure(s): CT foot LT wo con Accession Number(s): [id number] cc: Shaikh Erica Connelly [address] [address] Patient Name: KARINA DE OLIVEIRA MRN: [id number] date: 1965 Sex: F Assigned Patient Location: CT Current Patient Location: Accession/Order Number: [id number] Exam Date: 09/12/2023 12:57 Report Date: 09/13/2023 [...] Signed By: 09/13/23 0505 DD/ 0502 TD/TT: Charge Master Analyst: Procedure Note Radiology, Radiologist, MD - 09/13/2023 [place] [address] CT Scan Report Signed Patient: KARINA DE OLIVEIRA KMR#: [id number] : 1965Acct:[id number] Age/Sex: 57 / FADM Date: 09/12/23 Loc: CT Attending Dr: Sussy Jefferson D.P.M. Ordering Physician: Sussy Jefferson D.P.M. Date of Service: 09/12/23 Procedure(s): CT foot LT wo con Accession Number(s): [id number] cc: Shaikh Erica Connelly The [place] [address] Patient Name: KARINA DE OLIVEIRA MRN: [id number] date: 1965 Sex: F Assigned Patient Location: CT Current Patient Location: Accession/Order Number: [id number] Exam Date: 09/12/2023 12:57 Report Date: 09/13/2023 [...] Dictated By: Navid Cortes M.D. Signed By:09/13/23 0504 DD/ 0502 TD/TT: Charge Master Analyst: Generic External Data Provider [facility] Final Result documented in this encounter Visit Diagnoses Not on filedocumented in this encounter Care Teams Director Of Recruitment Relationship Specialty Start Date End Date Shaikh Connelly MD PCP - General Internal Medicine 05/02/23 09/23/23 Jose Chandler MD PCP - General Family Medicine 09/24/23 11/25/23 Unallocated, Timur Hernandez MD [address] [place] [address] PCP - General Family Medicine 11/26/23 12/11/23 Jose Chandler MD PCP - General Family Medicine 12/12/23 Ijeoma Drake NP Nurse Practitioner Family Medicine 09/24/23 Za Wilkerson NP [address] [place] [address] Nurse Practitioner Neurology 04/21/24 Madhuri Banda DO [address] [place] [address] Referring Physician Neurology 04/21/24 documented as of this encounter
--- OUTSIDE RECORDS SUMMARY | 2024-11-30 07:38 | XMS_ITS | Encounter Summary ---
Author Organization [facility] Address [place] [address] [place] [address] Care Team Providers Care Energy Efficiency Finance Manager Name Role Phone Ijeoma Lane CONTRACT ASSOCIATE MANAGER Unavailable [phone] Jose Chandler MD Primary Care Provider [phone] Za Wilkerson CONTRACT ASSOCIATE MANAGER Unavailable [phone] Madhuri Banda DO Unavailable [phone] Encounter Details Date Type Department Care Team ([facility] Contact Info) Description 01/30/2024 Clinisync Result Encounter [...] often do you attend chur ch or buddhist services? Patient declined 10/02/2023 Do you belong to any clubs o r organizations such as druze groups, unions, fraternal or athletic groups, or [...] Recorded Patient Health Questionnaire-2 Score 0 10/03/2023 [facility] - Occupational Stress Questionnaire Answer Date [...] Dermatology [address] [place] [address] Elida Monroy MD [address] [place] [address] 05/03/2025 1:00 PM EDT Office Visit [facility] [address] [place] [address] Kasi Bennett MD [address] [place] [address] documented as of this encounter Procedures Procedure Name Priority Date/Time Associated Diagnosis Comments XR FOOT LT MIN 3V 01/30/2024 5:3 8 AM EST documented in this encounter Results * XR FOOT LT MIN 3V (01/30/2024 5:38 AM EST) Anatomical Region Laterality Modality Other 01/30/2024 5:38 AM EST Narrative 01/30/2024 5:41 AM EST The [address] [address] XRay Report Signed Patient: KARINA WEIR MR#: [id number] : 1965 Acct:[id number] Age/Sex: 58 / F ADM Date: 01/29/24 Loc: RAD Attending Dr: Sussy Jefferson D.P.M. Ordering Physician: Sussy Jefferson D.P.M. Date of Service: 01/29/24 Procedure(s): XR foot LT min 3V Accession Number(s): [id number] cc: IJEOMA LANE; Sussy Jefferson D.P.M. The [place] [address] Patient Name: KARINA WEIR MRN: [id number] date: 1965 Sex: F Assigned Patient Location: RAD Current Patient Location: Accession/Order Number: [id number] Exam Date: 01/29/2024 09:28 Report Date: 01/30/2024 [...] Signed By: 01/30/24 0541 DD/ 0538 TD/TT: Driller Machine: Procedure Note Radiology, Radiologist, MD - 01/30/2024 [place] [address] XRay Report Signed Patient: KARINA WEIR KMR#: [id number] : 1965Acct:[id number] Age/Sex: 58 / FADM Date: 01/29/24 Loc: RAD Attending Dr: Sussy Jefferson D.P.M. Ordering Physician: Sussy Jefferson D.P.M. Date of Service: 01/29/24 Procedure(s): XR foot LT min 3V Accession Number(s): [id number] cc: LOCO LANE Peter D.P.M. [address] [address] Patient Name: KARINA WEIR MRN: [id number] date: 1965 Sex: F Assigned Patient Location: [facility] Current Patient Location: Accession/Order Number: [id number] Exam Date: 01/29/2024 09:28 Report Date: 01/30/2024 [...] By: Navid Cortes M.D. Signed By:01/30/2441 DD/ TD/TT: Driller Machine: us Generic External Data Provider [facility] Final Result documented in this encounter Visit Diagnoses Not on filedocumented in this encounter Care Teams Energy Efficiency Finance Manager Relationship Specialty Start Date End Date Jose Chandler MD PCP - General Family Medicine 12/12/[address] NP Nurse Practitioner Family Medicine 09/24/23 Za Wilkerson NP Nurse Practitioner Neurology 04/21/24 Madhuri Banda DO [address] [place] [address] Referring Physician Neurology 04/21/24 documented as of this encounter
--- OUTSIDE RECORDS SUMMARY | 2024-11-30 07:38 | XMS_ITS | Encounter Summary ---
Author Organization [facility] Address [address] [facility] [place] [address] Care Team Providers Care Parking Ramp Attendant Name Role Phone Shaikh BUNNY Connelly Primary Care Provider [phone] Jose Chandler MD Primary Care Provider [phone] Ijeoma Drake BRICK HANDLER Unavailable [phone] Unallocated, Timur Hernandez MD Primary Care Provi shayna Jose Chandler MD Primary Care Provider [phone] Za Wilkerson BRICK HANDLER Unavailable [phone] Madhuri Banda DO Unavailable [phone] Encounter Details Date Type Department Care [...] Dermatology [address] [place] [address] Elida Monroy MD [address] [place] [address] 05/03/2025 1:00 PM EDT Office Visit [facility] [place] [facility] [address] [place] [address] Kasi Bennett MD [address] [place] [address] documented as of this encounter Procedures Procedure Name Priority Date/Time Associated Diagnosis Comments XR TIBIA FIBULA LT 2V 08/14/2023 3:27 PM EDT documented in this encounter Results * XR TIBIA FIBULA LT 2V (08/14/2023 3:27 PM EDT) Anatomical Region Laterality Modality Other 08/14/2023 3:27 PM EDT Narrative 08/14/2023 3:29 [place] [address] XRay Report Signed Patient: KARINA DE OLIVEIRA MR#: [id number] : 1965 Acct:[id number] Age/Sex: 57 / F ADM Date: 08/13/23 Loc: EC Attending Dr: Sussy Jefferson D.P.M. Ordering Physician: Sussy Jefferson D.P.M. Date of Service: 08/13/23 Procedure(s): XR tibia fibula LT 2V Accession Number(s): [id number] cc: Shaikh Erica Connelly; Sussy Jefferson D.P.M. The [address] [address] Patient Name: KARINA DE OLIVEIRA MRN: [id number] date: 1965 Sex: F Assigned Patient Location: Current Patient Location: Accession/Order Number: [id number] Exam Date: 08/13/2023 14:05 Report Date: 08/14/2023 [...] Signed By: 08/14/23 1529 DD/ 1527 TD/TT: Wind Instrument Repairer: Procedure Note Radiology, Radiologist, MD - 08/14/2023 [place] [address] XRay Report Signed Patient: KARINA DE OLIVEIRA KMR#: [id number] : 1965Acct:[id number] Age/Sex: 57 / FADM Date: 08/13/23 Loc: EC Attending Dr: Sussy Jefferson D.P.M. Ordering Physician: Sussy Jefferson D.P.M. Date of Service: 08/13/23 Procedure(s): XR tibia fibula LT 2V Accession Number(s): [id number] cc: Shaikh Erica Connelly; Sussy Jefferson D.P.M. The [place] [address] Patient Name: KARINA DE OLIVEIRA MRN: [id number] date: 1965 Sex: F Assigned Patient Location: Current Patient Location: Accession/Order Number: [id number] Exam Date: 08/13/2023 14:05 Report Date: 08/14/2023 [...] M.D. Signed By:08/14/23 1529 DD/ 1527 TD/TT: Wind Instrument Repairer: us Generic External Data Provider [facility] Final Result documented in this encounter Visit Diagnoses Not on filedocumented in this encounter Care Teams Parking Ramp Attendant Relationship Specialty Start Date End Date Shaikh Connelly MD PCP - General Internal Medicine 05/02/23 09/23/23 Jose Chandler MD PCP - General Family Medicine 09/24/23 11/25/23 Unallocated, Timur Hernandez MD [address] [place] [address] PCP - General Family Medicine 11/26/23 12/11/23 Jose Chandler MD PCP - General Family Medicine 12/12/23 Ijeoma Drake NP Nurse Practitioner Family Medicine 09/24/23 Za Wilkerson NP [address] [facility] [address] Nurse Practitioner Neurology 04/21/24 Madhuri Banda DO [address] [place] [address] Referring Physician Neurology 04/21/24 documented as of this encounter
--- OUTSIDE RECORDS SUMMARY | 2024-11-30 07:38 | XMS_ITS | Patient Health Record ---
Author Organization [facility] [place] Address [address] [place] [address] Care Team Providers Care Fruit Thinner Machine Operator Name Role Phone Maricel HOLLIS, [facility] Primary Care Provider UnavailSussy Phillip Unavailable [phone] MichealCheryl Unavailable [phone] Allergies No Known Allergies Results Component Value Reference Range Notes XR foot LT min 3V (Not yet r eviewed by provider) Interpretation: Performing Lab: Notes/Report: Source Facility: [place] [address] XRay Report Signed Patient: KARINA DE OLIVEIRA MR#: [id number] : 1965 Acct:[id number] Age/Sex: 58 / F ADM Date: 01/29/24 Loc: RAD Attending Dr: Sussy Jefferson D.P.M. Ordering Physician: Sussy Jefferson D.P.M. Date of Service: 01/29/24 Procedure(s): XR foot LT min 3V Accession Number(s): [id number] cc: LOCO LANE Peter D.P.M. [place] [id number] Patient Name: KARINA DE OLIVEIRA MRN: [id number] date: 1965 Sex: F Assigned Patient Location: RAD Current Patient Location: Accession/Order Number: [id number] Exam Date: 01/29/2024 09:28 Report Date: 01/30/2024 [...] M.D. Signed By: 01/30/2441 DD/ 7 TD/TT: Goods Layer: XR foot LT min 3V (Not yet r eviewed by provider) Interpretation: Performing Lab: Notes/Report: Source Facility: [place] [address] XRay Report Signed Patient: KARINA DE OLIVEIRA MR#: [id number] : 1965 Acct:[id number] Age/Sex: 58 / F ADM Date: 12/18/23 Loc: RAD Attending Dr: Sussy Jefferson D.P.M. Ordering Physician: Sussy Jefferson D.P.M. Date of Service: 12/18/23 Procedure(s): XR foot LT min 3V Accession Number(s): [id number] cc: Shaikh Erica Connelly; Sussy Jefferson D.P.M. [place] [address] Patient Name: KARINA DE OLIVEIRA MRN: [id number] date: 1965 Sex: F Assigned Patient Location: RAD Current Patient Location: PT Accession/Order Number: [id number] Exam Date: 12/18/2023 10:58 Report Date: 12/23/2023 [...] Ryan Goldman M.D. Signed By: 12/23/2341 DD/ 8 TD/TT: Goods Layer: Reason For Referral Reason evaluation and treat ment -- see attached order Diagnosis 1 Left foot pain (M79. 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 of second metatarsal bone, left foot, subsequent 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) Active confirmed Problem Gastroesophageal reflux disease (857450349) GERD (gastroesophagea l reflux disease) (K21.9) Active confirmed Problem Acid reflux (151493524) Acid reflux (K21.9) Active confirmed Problem Pain in left foot (417099610797737) Left foot pain (M79.672) Active confirmed Problem Essential hypertension (74907383) BP (high blood pressure) (I10) Active confirmed Problem Diabetes mellitus (95341611) Diabetes mellitus (E11.9) Active confirmed Vital Signs Heart Rate 93 /min 01/29/2024 Temperature 97.2 degrees Fahrenheit 12/18/2023 Oximetry 94 % 01/29/2024 Height 60 in 01/29/2024 Weight 220 lbs 01/29/2024 BMI 42.96 kg/m2 01/29/2024 Encounters Encounter Location Date Provider Diagnosis [facility] [address] [place] [address] [place] [address] 12/18/2023 Sussy Jefferson Dislocation of tarsometatarsal joint of left foot, initial encounter S93.325A ; Other fracture of upper and lower end of left fibula, subsequent encounter for closed fracture with routine healing S82.832D and Left foot pain M79.672 [facility] [address] [place] [address] [place] [address] 01/29/2024 Cheryl Burton Dislocation of tarsometatarsal joint [...] at her tolerance and supportive shoe gear. Dsjh-yxm-mcarfgi analgesia and RICE therapy as needed. Follow-up [...] Coverage End Date [employer] [address] [address] [place] [address] [id number] Karina De Oliveira Self - patient is the insured 4 MEDICARE [place] [address] [place] [phone] [id number] Karina De Oliveira Self - patient is [...]
--- OUTSIDE RECORDS SUMMARY | 2024-11-30 07:38 | XMS_ITS | Encounter Summary ---
Author Organization [facility] Address [address] [facility] [address] Care Team Providers Care Human Service Worker Name Role Phone Shaikh BUNNY Connelly Primary Care Provider [phone] Jose Chandler MD Primary Care Provider [phone] Ijeoma Drake WIRE SPIRAL BINDER Unavailable [phone] Unallocated, Timur Hernandez MD Primary Care Provi shayna Jose Chandler MD Primary Care Provider [phone] Za Wilkerson WIRE SPIRAL BINDER Unavailable [phone] Madhuri Banda DO Unavailable [phone] Encounter Details Date Type Department Care [...] Dermatology [address] [place] [address] Elida Monroy MD [address] [place] [address] 05/03/2025 1:00 PM EDT Office Visit [facility] [place] [facility] [address] [place] [address] Kasi Bennett MD [address] [place] [address] documented as of this encounter Procedures Procedure Name Priority Date/Time Associated Diagnosis Comments XR FOOT LT MIN 3V 07/24/2023 3:5 1 PM EDT documented in this encounter Results * XR FOOT LT MIN 3V (07/24/2023 3:51 PM EDT) Anatomical Region Laterality Modality Other 07/24/2023 3:51 PM EDT Narrative 07/24/2023 3:53 [place] [address] XRay Report Signed Patient: KARINA DE OLIVEIRA MR#: [id number] : 1965 Acct:[id number] Age/Sex: 57 / F ADM Date: 07/24/23 Loc: EC Attending Dr: Sussy Jefferson D.P.M. Ordering Physician: Sussy Jefferson D.P.M. Date of Service: 07/24/23 Procedure(s): XR foot LT min 3V Accession Number(s): [id number] cc: Shaikh Erica Connelly; Sussy Jefferson D.P.M. The [address] [address] Patient Name: KARINA DE OLIVEIRA MRN: [id number] date: 1965 Sex: F Assigned Patient Location: EC Current Patient Location: EC Accession/Order Number: [id number] Exam Date: 07/24/2023 13:37 Report Date: 07/24/2023 [...] Signed By: 07/24/23 1553 DD/ 1551 TD/TT: Photography Colorist: Procedure Note Radiology, Radiologist, MD - 07/24/2023 [place] [address] XRay Report Signed Patient: KARINA DE OLIVEIRA KMR#: [id number] : 1965Acct:[id number] Age/Sex: 57 / FADM Date: 07/24/23 Loc: EC Attending Dr: Sussy Jefferson D.P.M. Ordering Physician: Sussy Jefferson D.P.M. Date of Service: 07/24/23 Procedure(s): XR foot LT min 3V Accession Number(s): [id number] cc: Shaikh Erica Connelly; Sussy Jefferson D.P.M. The [address] [address] Patient Name: KARINA DE OLIVEIRA MRN: [id number] date: 1965 Sex: F Assigned Patient Location: Current Patient Location: Accession/Order Number: [id number] Exam Date: 07/24/2023 13:37 Report Date: 07/24/2023 [...] M.D. Signed By:07/24/23 1553 DD/ 1551 TD/TT: Photography Colorist: Generic External Data Provider [facility] Final Result documented in this encounter Visit Diagnoses Not on filedocumented in this encounter Care Teams Human Service Worker Relationship Specialty Start Date End Date Shaikh Connelly MD PCP - General Internal Medicine 05/02/23 09/23/23 Jose Chandler MD PCP - General Family Medicine 09/24/23 11/25/23 Unallocated, Timur Hernandez MD [address] [place] [address] PCP - General Family Medicine 11/26/23 12/11/23 Jose Chandler MD PCP - General Family Medicine 12/12/23 Ijeoma Drake NP Nurse Practitioner Family Medicine 09/24/23 Za Wilkerson NP [address] [facility] [place] [address] Nurse Practitioner Neurology 04/21/24 Madhuri Banda DO [address] [place] [address] Referring Physician Neurology 04/21/24 documented as of this encounter
--- OUTSIDE RECORDS SUMMARY | 2024-11-30 07:38 | XMS_ITS | Encounter Summary ---
Author Organization [facility] Address [address] [place] [address] Care Team Providers Care Stenotype Machine Operator Name Role Phone Shaikh BUNNY Connelly Primary Care Provider [phone] Jose Chandler MD Primary Care Provider [phone] Ijeoma Drake GLASS MAKER Unavailable [phone] Unallocated, Timur Provider Primary Care Provi shayna Jose Chandler MD Primary Care Provider [phone] Za Wilkerson GLASS MAKER Unavailable [phone] Madhuri Banda DO Unavailable [phone] Encounter Details Date Type Department Care [...] Dermatology [address] [place] [address] Elida Monroy MD [address] [place] [address] 05/03/2025 1:00 PM EDT Office Visit [facility] [address] [place] [address] Kasi Bennett MD [address] [place] [address] documented as of this encounter Procedures Procedure Name Priority Date/Time Associated Diagnosis Comments XR FOOT LT MIN 3V 07/03/2023 2:0 4 PM EDT documented in this encounter Results * XR FOOT LT MIN 3V (07/03/2023 2:04 PM EDT) Anatomical Region Laterality Modality Other 07/03/2023 2:04 PM EDT Narrative 07/03/2023 2:07 PM EDT The [address] [address] XRay Report Signed Patient: KARINA WEIR MR#: [id number] : 1965 Acct:[id number] Age/Sex: 57 / F ADM Date: 07/03/23 Loc: EC Attending Dr: Sussy Jefferson D.P.M. Ordering Physician: Sussy Jefferson D.P.M. Date of Service: 07/03/23 Procedure(s): XR foot LT min 3V Accession Number(s): [id number] cc: Shaikh Erica Connelly; Sussy Jefferson D.P.M. The [place] [address] Patient Name: KARINA WEIR MRN: [id number] date: 1965 Sex: F Assigned Patient Location: EC Current Patient Location: EC Accession/Order Number: [id number] Exam Date: 07/03/2023 10:54 Report Date: 07/03/2023 [...] Signed By: 07/03/23 1407 DD/ 1404 TD/TT: Aircraft Structural Fitter: Procedure Note Radiology, Radiologist, MD - 07/03/2023 [place] [address] XRay Report Signed Patient: KARINA WEIR KMR#: [id number] : 1965Acct:[id number] Age/Sex: 57 / FADM Date: 07/03/23 Loc: EC Attending Dr: Sussy Jefferson D.P.M. Ordering Physician: Sussy Jefferson D.P.M. Date of Service: 07/03/23 Procedure(s): XR foot LT min 3V Accession Number(s): [id number] cc: Shaikh Erica Connelly; Sussy Jefferson D.P.M. The [place] [address] Patient Name: KARINA WEIR MRN: [id number] date: 1965 Sex: F Assigned Patient Location: Current Patient Location: Accession/Order Number: [id number] Exam Date: 07/03/2023 10:54 Report Date: 07/03/2023 [...] M.D. Signed By:07/03/23 1407 DD/ 1404 TD/TT: Aircraft Structural Fitter: us Generic External Data Provider [facility] Final Result documented in this encounter Visit Diagnoses Not on filedocumented in this encounter Care Teams Stenotype Machine Operator Relationship Specialty Start Date End Date Shaikh Connelly MD PCP - General Internal Medicine 05/02/23 09/23/23 Jose Chandler MD PCP - General Family Medicine 09/24/23 11/25/23 Unallocated, [facility] MD David [address] [place] [address] PCP - General Family Medicine 11/26/23 12/11/23 Jose Chandler MD PCP - General Family Medicine 12/12/23 Ijeoma Drake NP Nurse Practitioner Family Medicine 09/24/23 Za Wilkerson NP [address] [facility] [place] [address] Nurse Practitioner Neurology 04/21/24 Madhuri Banda DO [address] [place] [address] Referring Physician Neurology 04/21/24 documented as of this encounter
--- OUTSIDE RECORDS SUMMARY | 2024-11-30 07:38 | XMS_ITS | Encounter Summary ---
Author Organization [facility] Address [address] [place] [address] Care Team Providers Care Pharmacology Associate Name Role Phone Ijeoma Drake NURSE RECRUITER Unavailable [phone] Jose Chandler MD Primary Care Provider [phone] Za Wilkerson NURSE RECRUITER Unavailable [phone] Madhuri Banda DO Unavailable [phone] Encounter Details Date Type Department Care Team (Late st Contact Info) Description 06/03/2024 Orders Only [facility] [address] [facility] [place] [address] Ameena Vera NP [address] [place] [address] Social History Tobacco Use Types Packs/Day Years [...] How often do you attend chur or buddhist services? Patient declined 10/02/2023 Do you belong to any clubs o r organizations such as amish groups, unions, fraternal or athletic groups, or [...] Recorded Patient Health Questionnaire-2 Score 0 10/03/2023 [facility] - Occupational [...] any time in the past 12 m [facility], were you homeless or living in a alf (including now)? Patient declined 10/02/2023 Comments Unknown [...] Dermatology [address] [place] [address] Elida Mon[place] MD [address] [place] [address] 05/03/2025 1:00 PM EDT Office Visit [facility] [address] [place] [address] Kasi Bennett MD [address] [place] [address] documented as of this encounter Visit Diagnoses Not on filedocumented in this encounter Care Teams Pharmacology Associate Relationship Specialty Start Date End Date Jose Chandler MD PCP - General Family Medicine 12/12/23 Ijeoma Drake NP Nurse Practitioner Family Medicine 09/24/23 Za Wilkerson NP Nurse Practitioner Neurology 04/21/24 Madhuri Banda DO [address] [place] [address] Referring Physician Neurology 04/21/24 documented as of this encounter
--- OUTSIDE RECORDS SUMMARY | 2024-11-30 07:38 | XMS_ITS | Encounter Summary ---
Author Organization [facility] Address [address] [facility] [place] [address] Care Team Providers Care [address] Service Name Role Phone Shaikh BUNNY Connelly Primary Care Provider [phone] Jose Chandler MD Primary Care Provider [phone] Ijeoma Drake ELECTRICAL ASSEMBLY TECHNICIAN Unavailable [phone] Unallocated, Timur Hernandez MD Primary Care Provi shayna Jose Chandler MD Primary Care Provider [phone] Za Wilkerson ELECTRICAL ASSEMBLY TECHNICIAN Unavailable [phone] Madhuri Banda DO Unavailable [phone] Encounter Details Date Type Department Care [...] Dermatology [address] [place] [id number] Elida Monroy MD [address] [place] [address] 05/03/2025 1:00 PM EDT Office Visit [facility] [place] [facility] [address] [place] [phone] Kasi Bennett MD [address] [place] [address] documented as of this encounter Procedures Procedure Name Priority Date/Time Associated Diagnosis Comments XR FOOT LT MIN 3V 08/14/2023 3:3 0 PM EDT documented in this encounter Results * XR FOOT LT MIN 3V (08/14/2023 3:30 PM EDT) Anatomical Region Laterality Modality Other 08/14/2023 3:30 PM EDT Narrative 08/14/2023 3:32 [place] [address] XRay Report Signed Patient: KARINA DE OLIVEIRA MR#: [id number] : 1965 Acct:[id number] Age/Sex: 57 / F ADM Date: 08/13/23 Loc: EC Attending Dr: Sussy Jefferson D.P.M. Ordering Physician: Sussy Jefferson D.P.M. Date of Service: 08/13/23 Procedure(s): XR foot LT min 3V Accession Number(s): [id number] cc: Shaikh Erica Connelly; Sussy Jefferson D.P.M. The [address] [address] Patient Name: KARINA DE OLIVEIRA MRN: [id number] date: 1965 Sex: F Assigned Patient Location: EC Current Patient Location: EC Accession/Order Number: [id number] Exam Date: 08/13/2023 14:05 Report Date: 08/14/2023 [...] Signed By: 08/14/23 1532 DD/ 1530 TD/TT: Revenue Liaison: Procedure Note Radiology, Radiologist, MD - 08/14/2023 [place] [address] XRay Report Signed Patient: KARINA DE OLIVEIRA KMR#: [id number] : 1965Acct:[id number] Age/Sex: 57 / FADM Date: 08/13/23 Loc: [facility] Attending Dr: Sussy Jefferson D.P.M. Ordering Physician: Sussy Jefferson D.P.M. Date of Service: 08/13/23 Procedure(s): XR foot LT min 3V Accession Number(s): [id number] cc: Shaikh Erica Connelly; Sussy Jefferson D.P.M. The [place] [id number] Patient Name: KARINA DE OLIVEIRA MRN: [id number] date: 1965 Sex: F Assigned Patient Location: Current Patient Location: EC Accession/Order Number: [id number] Exam Date: 08/13/2023 14:05 Report Date: 08/14/2023 [...] M.D. Signed By:08/14/23 1532 DD/ 1530 TD/TT: Revenue Liaison: us Generic External Data Provider [facility] Final Result documented in this encounter Visit Diagnoses Not on filedocumented in this encounter Care Teams [address] Service Relationship Specialty Start Date End Date Shaikh Connelly MD PCP - General Internal Medicine 05/02/23 09/23/23 Jose Chandler MD PCP - General Family Medicine 09/24/23 11/25/23 Unallocated, Timur Hernandez MD [address] [place] [id number] PCP - General Family Medicine 11/26/23 12/11/23 Jose Chandler MD PCP - General Family Medicine 12/12/23 Ijeoma Drake NP Nurse Practitioner Family Medicine 09/24/23 Za Wilkerson NP [address] [place] [address] Nurse Practitioner Neurology 04/21/24 Madhuri Banda DO [address] [place] [address] Referring Physician Neurology 04/21/24 documented as of this encounter
--- OUTSIDE RECORDS SUMMARY | 2024-11-30 07:38 | XMS_ITS | CCD ---
Author Organization [facility] Care Team Providers Care Legal Associate Name Role Phone House DO, Sr Jonathan [...] Unavailable HOUSE, DR BASURTO Primary Care Unavailable FILLMORE, DR RYAN Guzman Consulting Unavailable HOUSE, DR [...] Maricel HOLLIS, Barrios Primary Care Provider Vidal PROFESSIONAL BASS FISHER, Sonam Unavailable Jose Chandler MD Primary Care Provider [phone] Jose Chandler MD Primary Care Provider Vidal PROFESSIONAL BASS FISHER, Sonam Unavailable [phone] Rock HIGGINS, Za Unavailable Sivan Banda DO Unavailable Lui Banks II Attending UnavailLui Alvarado II Admitting Unavailcurtis e NON STAFF Primary Care Unavailable NON STAFF Primary Care Provider UnavailLui Alvarado MD Attending Provider [phone] Rock HIGGINS, Za Unavailable [phone] Ameena Vera Primary Care Provider [phone] Ameena Vera Attending Provider Keo HOLLIS, Tanya Esposito Attending Unavailable Keo HOLLIS, Tanya Esposito Attending Unavailable Jose Chandler MD Primary Care Provider [phone] Za Wilkerson NP Unavailable [phone] SONAM DRAKE Attending SONAM Justin Attending UnavailALICIA Reese Attending Unavailable ZA WILKERSON Attending Unavailable AMEENA VERA Attending Unavailable KASI BENNETT Attending Unavailable AMEENA VERA Referring Unavailable AMEENA VERA Attending Unavailable KASI BENNETT Attending Unavailable SONAM DRAKE Attending UnavailSIVAN Cruz Attending Unavailable VIDAL, SONAM Referring Ameena Barr Primary Care Provider Ameena Oliva Attending Provider Kasi Bennett MD Attending Provider Medications Current Medications Medication Drug [...] drug therapy take 1 tablet by alonso every six hours Percocet 10-325 MG 1 [...] aspirin 81 mg delayed release oral tablet (5 sources) Platelet Aggregation Inhibitor, Nonsteroidal Anti-inflammatory Drug Start: 7 Aspirin (Kumar Low Dose Aspirin) 81 mg Tablet,Delayed Release (Dr/Ec) Active 81 MG PO Bedtime January 12, 2017 1:00am Complies with drug therapy baclofen 10 mg oral tablet (20 sources) gamma-Aminobutyric Acid-ergic Agonist Start: End: take 1 tablet by mouth every twelve hours as needed for muscle spasms Baclofen 20 mg tablet Discontinued 20 MG PO Every 12 hours as needed for spasms October 19, 2024 11:56am October 19, 2024 12:12pm Start: 10-19-2024 End: 10-19-2024 take 1 tablet by mouth twice daily as needed for muscle spasms Baclofen 10 mg tablet Active 10 MG PO Twice daily as needed for muscle spasm October 19, 2024 12:21pm Complies with drug therapy Start: 05-28-2024 End: [...] 0.6 mg oral tablet (20 sources) Start: 11-11-2024 take 1 tablet by mouth every twenty-four hours Colchicine 0.6 mg tablet Active 0.6 MG PO .COMPLEX 15 October 1st, 2025 10:46am 0.6 mg orally may take 2 pills at onset of gout flare, may repeat dose in 1 hour if needed. max 3 pills in 24 hours; Complies with drug therapy Start: 05-28-2024 End: 11-11-2024 take 1 tablet by mouth once daily Colchicine 0.6 mg tablet Discontinued 0.6 MG PO Daily May 28, 2024 12:00am November 11, 2024 10:51am Start: 03-03-2024 End: 08-05-2024 colchicine 0.6 MG [...] 30 tablet 11/04/2023 12/18/2023 Discontinued Continuous Glucose Wildlife Refuge Specialist (Dexcom G7 Wildlife Refuge Specialist) device (20 sources) Start: 03-03-2024 Continuous Glu cose Wildlife Refuge Specialist (Dexcom G7 Wildlife Refuge Specialist) device Indications: Type 2 diabetes mellitus with diabetic microalbuminuria, without long-term current use of insulin (HCC) 1 each continuously 1 each 03/03/2024 Active Start: 03-03-2024 Continuous Glu cose Wildlife Refuge Specialist (Dexcom G7 Wildlife Refuge Specialist) device Indications: Type 2 diabetes mellitus with diabetic microalbuminuria, without long-term current use of insulin (CMS/HCC) 1 each continuously 1 each 03/03/2024 Active Continuous Glucose Sensor (Dexcom G7 Sensor) misc (20 sources) Start: 08-05-2024 End: 09-04-2024 Continuous Glucose Sensor (D excom G7 Sensor) [facility] [place] [place] Indications: Type 2 diabetes mellitus with diabetic microalbuminuria, without long-term current use of insulin (HCC) 1 each continuously 3 each 11 08/05/2024 09/04/2024 Active Start: 03-30-2024 End: 08-05-2024 Continuous Glucose Sensor (D excom G7 Sensor) [facility] [place] Indications: Type 2 diabetes mellitus with diabetic microalbuminuria, without long-term current use of insulin (HCC) 1 each continuously 3 each 11 03/30/2024 08/05/2024 Discontinued (Reorder) Start: 03-30-2024 Continuous Glu cose Sensor (Dexcom G7 Sensor) [facility] [place] Indications: Type 2 diabetes mellitus with diabetic microalbuminuria, without long-term current use of insulin (HCC) 1 each continuously 3 each 03/30/2024 Active Start: 03-30-2024 Continuous Glu cose Sensor (Dexcom G7 Sensor) [facility] [place] Indications: Type 2 diabetes mellitus with diabetic microalbuminuria, without long-term current use of insulin (CMS/HCC) 1 each continuously 3 each 03/30/2024 Active Start: 03-03-2024 End: 03-30-2024 Continuous Glucose Sensor (D excom G7 Sensor) [facility] [place] Indications: Type 2 diabetes mellitus with diabetic microalbuminuria, without long-term current use of insulin (CMS/HCC) 1 each continuously 3 each 11 03/03/2024 03/30/2024 Discontinued (Reorder) Start: 03-03-2024 Continuous Glu cose Sensor (Dexcom G7 Sensor) [facility] [place] Indications: Type [...] End: 11-18-2024 take 1 tablet by mouth twice daily [...] 06/05/2021 Active hydroCHLOROthiazide 25 mg oral tablet (6 sources) Thiazide Diuretic Start: 08-16-2021 take 1 tablet by mouth once daily hydroCHLOROthiazide (HYDRODIURIL) 25 MG tablet TAKE 1 TABLET BY MOUTH EVERY DAY 0 08/16/2021 Active Start: 01-12-2017 End: 01-15-2017 take 1 tablet by mouth once daily Hydrochlorothiazide 25 mg Tablet Discontinued 25 MG PO Daily January 12, 2017 1:00am January 15, 2017 2:23pm methocarbamol 750 mg oral tablet (5 sources) Muscle Relaxant Start: 08-15-2021 take 1 [...] mouth Daily 08/18/2023 10/03/2023 Discontinued (Therapy completed) Probiotic (5 sources) Probiotic Active raNITIdine 150 [...] Start: End: take 1 tablet by mouth once daily Rosuvastatin (Crestor) 20 mg tablet Active 20 MG PO Daily May 28, 2024 12:00am Complies with drug therapy take 1 tablet by alonso th every twenty-four hours Crestor 20 MG 1 tablet Orally Once a day Active Semaglutide (2 sources) Start: 05-28-2024 inject 2 mg by subcutaneous [...] microalbuminuria, without long-term current use of insulin ([facility]/HCC) Inject 2 mg under the skin every [...] (Original) ascorbic acid 100 mg oral tablet (8 sources) Vitamin C Start: 01-12-2017 End: 01-15-2017 [...] list cleanup) eletriptan 40 mg oral tablet (10 sources) Serotonin-1b and [...] day Active indomethacin 50 mg oral capsule (4 sources) Nonsteroidal Anti-inflammatory Drug Start: 01-12-2017 End: 01-15-2017 take 1 capsule by mouth twice daily Indomethacin 50 mg Capsule Discontinued 50 MG PO Twice daily January 12, 2017 1:00am January 15, 2017 2:23pm lactobacillus acidophilus 1.5 mg oral capsule (4 sources) Start: 01-12-2017 End: 01-15-2017 Lactobacillus Acidophilus (Probiotic Acidophilus) 1.5 mg (250 million cell) Capsule Discontinued PO Daily January 12, 2017 1:00am January 15, 2017 2:23pm lansoprazole 30 mg delayed release oral capsule (4 sources) Proton Pump Inhibitor Start: 01-12-2017 End: [...] not crush, chew, or split. 0 Active Phihfxvumqxq-Ov-Gbhi-Mineral s (Multiple Vitamin, Womens) Tablet (4 sources) Start: 01-12-2017 End: 01-15-2017 Ltmvpidbjrbt-Hm-Afst-Mineral s (Multiple Vitamin, Womens) Tablet Discontinued PO Daily January 12, 2017 1:00am January 15, 2017 2:23pm pregabalin 75 mg oral capsul e (20 sources) Start: 10-19-2024 End: 10-19-2024 take 2 capsules by mouth once daily at bedtime Pregabalin 75 mg capsule Discontinued 150 MG PO Daily at bedtime October 19, 2024 11:58am October 19, 2024 12:14pm Start: 09-24-2024 End: 10-19-2024 take 1 capsule by mouth three times daily Pregabalin 75 mg capsule Discontinued 75 MG PO Three times daily October 19, 2024 7:56am October 19, 2024 12:05pm Start: 09-05-2023 End: 10-24-2024 take 1 capsule by mouth twice daily Pregabalin 75 mg capsule Discontinued 75 MG PO Twice daily October 19, 2024 12:13pm October 19, 2024 12:23pm Start: 03-21-2023 End: 06-19-2023 take 1 capsule [...] a day by oral route. 0 Active rizatriptan 10 mg oral tablet (20 sources) Serotonin-1b and Serotonin-1d Receptor Agonist Start: 05-28-2024 End: 11-23-2024 take 1 tablet by mouth every two hours Rizatriptan (Maxalt) 10 mg tablet Discontinued 0 PO .COMPLEX May 28, 2024 12:00am November 23, 2024 1:17pm take 1 tab at onset of headache; [...] in 24 hours. 9 tablet 12/17/2023 Active 1 mg dose 1.5 ml semaglutide 1.34 [...] Date Episodic/Chronic Acute and unspecified renal failure (4 sources) Acute renal failure syndrome; Translations: [Acute [...] hyperlipidemia] Onset: 05-02-2023 05-02-2023 Chronic Esophageal disorders (7 sources) Gastroesophageal reflux disease without esophagitis; Translations: [...] [Vitamin D deficiency, unspecified] 07-29-2024 Chronic Osteoarthritis (14 sources) Bilateral primary osteoarthritis of knee; Translations: [...] Other hereditary and degenerative nervous system conditions (4 sources) Restless legs; Translations: [Restless legs syndrome] 01-23-2023 Chronic Comment on above: Problem List clean-u p per request of Phys. EHR Cmte Other nervous system disorders (1 source) Other chronic pain; Translations: [OTHER CHRONIC PAIN] Onset: 06-08-2022 Chronic Other nervous system disorders (4 sources) Numbness of face; Translations: [Anesthesia of [...] lower leg] Onset: 05-19-2024 05-19-2024 Episodic Other non-traumatic joint disorders (2 sources) Pain of left wrist; Translations: [Pain in left wrist] 11-23-2024 Episodic Other nutritional; endocrine; and metabolic disorders [...] Chronic Other nutritional; endocrine; and metabolic disorders (4 sources) Morbid obesity; Translations: [Morbid (severe) obesity due [...] Test Name Value Interpretation Reference Range Facility Glomerular filtration rate ( GFR) estimation in non- AmericanOrdered By: Kasi Bennett on 10-26-2024 GFR/1.73 sq M.predicted among non-blacks MDRD (S/P/Bld) [Vol rate/Area] mL/min/{1.73_m2} >=60 mL/min/1.73m 2 [facility] - Chemistry and C hemistry - challengeOrdered By: Kasi Bennett on 10-26-2024 Albumin [Mass/Vol] 2.9 g/dL Low 3.4-5.0 [facility] Calcium [Mass/Vol] 8.7 mg/dL 8.7-10.3 [facility] Chloride [Moles/Vol] 106 mmol/L 98-107 [facility] CO2 [Moles/Vol] 27.8 mmol/L 21.0-32.0 [facility] Creatinine [Mass/Vol] 0.87 mg/dL 0.55-1.02 [facility] GFR/1.73 sq M.predicted MDRD (S/P/Bld) [Vol rate/Area] mL/min/{1.73_m2} >=60 mL/min/1.73m 2 [facility] Glucose [Mass/Vol] 103 mg/dL 74-106 [facility] Magnesium [Mass/Vol] 1.4 mg/dL Low 1.8-2.4 [facility] Potassium [Moles/Vol] 4.4 mmol/L 3.5-5.1 [facility] Sodium [Moles/Vol] 142 mmol/L 136-145 [facility] Urea nitrogen [Mass/Vol] 22.0 mg/dL High 7.0-18.0 [facility] Urea nitrogen/Creatinine [Mass ratio] 25.3 mg/mg [facility] No Panel InformationOrdered By: Kasi Bennett on 10-26-2024 25-Hydroxy Vitamin D Total 80.4 ng/mL [facility] Comment on above: <20 ng/mL Vit D defi cient20-<30 ng/mL Vit D [id number] ng/mL Vit D sufficient>100 ng/mL Potential Toxicity Miscellaneous Test Comment Comment . [facility] Comment on above: Interpretation Intac t PTH Calcium (pg/mL) (mg/dL)Normal 15 - 65 8.6 - 10.2Primary Hyperparathyroidism >65 >10.2Secondary Hyperparathyroidism >65 <10.2Non-Parathyroid Hypercalcemia <65 >10.2Hypoparathyroidism <15 < 8.6Non-Parathyroid Hypocalcemia 15 - 65 < 8.6Performed at: - [facility] [address] [id number] Director: Berto Gay PhD, Phone: [phone] Parathyroid Hormone (Intact) 30 pg/mL 15- [facility] Phosphorus Level 3.4 mg/dL 2.6-4.7 [facility] Serum or plasma anion gap de terminationOrdered By: Kasi Bennett on 10-26-2024 Anion gap [Moles/Vol] 12.6 mmol/L [facility] HbA1c (Bld) [Mass fraction]o n 08-20-2024 Interpretation and review of laboratory results Abnormal [facility] - Hematology and Cell countson 08-20-2024 HbA1c (Bld) [Mass fraction] 6.4 % [facility] ALL BASIC METABOLIC PANELon 07-09-2024 Anion gap [Moles/Vol] 11.6 mmol/L [facility] Calcium [Mass/Vol] 9.3 mg/dL 8.5 - 10. 1 mg/dL [facility] Chloride [Moles/Vol] 103 mmol/L 98 - 10 7 mmol/L [facility] CO2 [Moles/Vol] 33 mmol/L High 21.0 - 32.0 mmol/L [facility] Creatinine [Mass/Vol] 0.86 mg/dL 0.55 - 1.02 mg/dL [facility] GFR/1.73 sq M.predicted CKD-EPI (S/P/Bld) [Vol rate/Area] >60 >=60 mL/min/1.73m 2 [facility] Glucose [Mass/Vol] 107 mg/dL High 74 - 106 mg/dL [facility] Interpretation and review of laboratory results Abnormal [facility] Potassium [Moles/Vol] 4.6 mmol/L 3.5 - 5.1 mmol/L [facility] Sodium [Moles/Vol] 143 mmol/L 136 - 145 mmol/L [facility]H EGFR-NON AF SPANISH >60 >=60 mL/min/1.73m 2 [facility] Urea nitrogen [Mass/Vol] 20 mg/dL High 7.0 - 18.0 mg/dL [facility] Urea nitrogen/Creatinine [Mass ratio] 23.3 mg/mg [facility] X-ray reportOrdered By: Anton Penny on 05-28-2024 Study report [facility] [address] [place] [address] XRay Report Signed Patient: Karina De Oliveira MR#: [id number] : 1965 Acct:[id number] Age/Sex: 58 / F ADM Date: 5 Loc: [facility] [place] Room: Type: [facility] Attending Dr: Lui Banks II, MD Copies to: Lui Banks MD~ Ordering Provider: Lui Banks MD Date of Service: 05/28/24 XR/XR knee RT 4V*: M25.561 - Pain in right knee ([id number]) XR/XR pelvis 1-2V: M25.561 - Pain in [...] KNEE. Impression dictated by: Moustapha Penny Jr., D.OPaqsuale05/28/2024 3:24 PM Dictation Location: [place] [address] Transcribed By: [facility] 05/28/24 1524 Dictated By: Moustapha Penny Jr, DO 05/28/24 1523 Signed By: 05/28/24 1524 [facility] XR knee RT 4V*on 05-28-2024 XR knee RT 4V* [facility] [address] [place] [address] XRay Report Signed Patient: Karina De Oliveira MR#: [id number] : 1965 Acct:[id number] Age/Sex: 58 / F ADM Date: 05/28/24 Loc: [facility]XD Room: Type: [facility] Attending Dr: Lui Banks II, MD Copies to: Lui Banks MD Ordering Provider: Lui Banks MD Date of Service: 05/28/24 XR/XR knee RT 4V*: M25.561 - Pain in right knee ([id number]) XR/XR pelvis 1-2V: M25.561 - Pain in [...] KNEE. Impression dictated by: Moustapha Penny Jr., Romaine05/28/2024 3:24 PM Dictation Location: [place] [address] Transcribed By: [facility] 05/28/24 1524 Dictated By: Moustapha Penny Jr, DO 05/28/24 1523 Signed By: 05/28/24 1524 Normal [facility] ALL CBC WITH AUTO DIFFon BASOPHILS ABSOLUTE AUTO 0.1 [facility] Basophils/100 WBC (Bld) 0.5 % 0.2 - 2.0 % [facility] Eosinophils/100 WBC (Bld) 4 % 0.9 - 7.0 % [facility] Erythrocyte distribution width (RBC) [Ratio] 14.6 % 11.0 - 15.0 % [facility] Hematocrit (Bld) [Volume fraction] 41.6 % 36.0 - 48.0 % [facility] Hemoglobin (Bld) [Mass/Vol] 14.1 g/dL 12.0 - 16.0 g/dL [facility] IMMATURE GRANULOCYTES ABS AUTO 0.07 High [facility] Immature granulocytes/100 WBC (Bld) 0.6 % High 0.0 - 0.5 % [facility] Interpretation and review of laboratory results Abnormal [facility] LYMPHOCYTES ABSOLUTE AUTO 3.6 [facility] Lymphocytes/100 WBC (Bld) 32.6 % 20.5 - 60.0 % [facility] MCH (RBC) [Entitic mass] 32.3 pg 26.7 - 34.[address] [facility] MCHC (RBC) [Mass/Vol] 33.9 g/dL 29.9 - 35.2 g/dL [facility] MCV (RBC) [Entitic vol] 95.2 fL 81.0 - 99.[address] [facility] MONOCYTES ABSOLUTE AUTO 0.8 [facility] Monocytes/100 WBC (Bld) 6.9 % 1.7 - 12.0 % [facility] NEUTROPHILS ABSOLUTE [facility] Neutrophils/100 WBC (Bld) 55.4 % 43.0 - 75.0 % [facility] Platelet mean volume (Bld) [Entitic vol] 10.7 fL 9.5 - 13.[address] [facility] EO # 0.4 [facility] PLT 193 [facility] RBC 4.37 [facility] WBC 11.[address] [facility] XR Knee - right [address] [place] [address] XRay Report Signed Patient: KARINA DE OLIVEIRA MR#: [id number] : 1965 Acct:[id number] Age/Sex: 58 / F ADM Date: 05/21/24 Loc: LAB Attending Dr: Ameena Vera PROFESSIONAL BASS FISHER Ordering Physician: Ameena Vera NP Date of Service: 05/21/24 Procedure(s): XR knee RT 3V Accession Number(s): [id number] cc: Ameena Vera NP [address] [address] Patient Name: KARINA DE OLIVEIRA MRN: [facility]:[id number] date: 1965 Sex: F Assigned Patient Location: LAB Current Patient Location: LAB Accession/Order Number: [id number] Exam Date: 05/21/2024 13:21 Report Date: 05/21/2024 13:21 At the request of: AMEENA J AICHHOLZ PROFESSIONAL BASS FISHER Procedure: XR knee RT 3V RIGHT KNEE [...] Penny Jr., D.O.05/21/2024 1:21 PM Dictation Location: [place] [address] Electronically authenticated by: [id number] Y Date: 05/21/2024 13:21 Dictated By: Moustapha Penny M.D. Signed By: 05/21/24 1324 DD/ 132 TD/TT: Manager Port: [facility] Radiology, Radiologist, MD - 05/21/2024 [place] [address] XRay Report Signed Patient: KARINA DE OLIVEIRA MR#: [id number] : 1965 Acct:[id number] Age/Sex: 58 / F ADM Date: 05/21/24 Loc: LAB Attending Dr: Ameena Vera NP Ordering Physician: Ameena Vera NP Date of Service: 05/21/24 Procedure(s): XR knee RT 3V Accession Number(s): [id number] cc: Ameena Vera NP [place] [id number] Patient Name: KARINA DE OLIVEIRA MRN: [facility]:[id number] date: 1965 Sex: F Assigned Patient Location: LAB Current Patient Location: LAB Accession/Order Number: [id number] Exam Date: 05/21/2024 13:21 Report Date: 05/21/2024 [...] Penny Jr., D.O.05/21/2024 1:21 PM Dictation Location: [place] [address] Electronically authenticated by: [id number] Y Date: 05/21/2024 13:21 Dictated By: Moustapha Penny M.D. Signed By: 05/21/24 1324 DD/ 1321 TD/TT: Manager Port: [facility] Radiology Study observation (narrative) [facility] XR Knee - right 3 ViewsOrder ed By: Radiologist Radiology on 05-21-2024 [facility] Work Phone: HbA1c (Bld) [Mass fraction]o n 05-19-2024 Interpretation and review of laboratory results Abnormal [facility] - Hematology and Cell countson 05-19-2024 HbA1c (Bld) [Mass fraction] 6.70 % [facility] HbA1c (Bld) [Mass fraction]o n 03-30-2024 Interpretation and review of laboratory results Abnormal [facility] - Hematology and Cell countson 03-30-2024 HbA1c (Bld) [Mass fraction] 6.9 % [facility] MM TOMOSYNTHESIS SCREENING B Ion 03-18-2024 [place] [address] Mammography Report Signed Patient: KARINA DE OLIVEIRA MR#: [id number] : 1965 Acct:[id number] Age/Sex: 58 / F ADM Date: 03/18/24 Loc: MAMMO Attending Dr: RADHA BARCLAY Ordering Physician: RADHA BARCLAY Results: Date of Service: 03/18/24 Follow Up: Procedure(s): MM tomosynthesis screening BI Accession Number(s): [id number] cc: LOCO DRAKE SUSAN Patient Name: KARINA DE OLIVEIRA MR#: [id number] : 1965 Exam Date: 03/18/2024 Ordering Doctor: DR RADHA BARCLAY [facility] RADIOLOGY REPORT PROCEDURE: MM TOMOSYNTHESIS SCREENING [...] at age 69. LOCATION: The [facility] BREAST COMPOSITION: There are scattered areas [...] Signed By: 03/18/24 1454 DD/ 1454 TD/TT: Manager Port: [facility] Radiology, Radiologist, MD - 03/18/2024 [place] [address] Mammography Report Signed Patient: KARINA DE OLIVEIRA MR#: [id number] : 1965 Acct:[id number] Age/Sex: 58 / F ADM Date: 03/18/24 Loc: MAMMO Attending Dr: RADHA BARCLAY Ordering Physician: RADHA BARCLAY Results: Date of Service: 03/18/24 Follow Up: Procedure(s): MM tomosynthesis screening BI Accession Number(s): [id number] cc: LOCO DRAKE SUSAN Patient Name: KARINA DE OLIVEIRA MR#: [id number] : 1965 Exam Date: 03/18/2024 Ordering Doctor: DR RADHA BARCLAY [facility] RADIOLOGY REPORT PROCEDURE: MM TOMOSYNTHESIS SCREENING [...] at age 69. LOCATION: [facility] BREAST COMPOSITION: There are scattered areas [...] Signed By: 03/18/24 1454 DD/ 1454 TD/TT: Manager Port: [facility] Radiology Study observation (narrative) [facility] MM TOMOSYNTHESIS SCREENING B IOrdered By: Radiologist Radiology on 03-18-2024 [facility] Work Phone: ALL CBC WITH AUTO DIFFon BASOPHILS ABSOLUTE AUTO 0.1 N [facility] Basophils/100 WBC (Bld) 0.4 % 0.2 - 2.0 % [facility] Eosinophils/100 WBC (Bld) 3.2 % 0.9 - 7.0 % [facility] Erythrocyte distribution width (RBC) [Ratio] 15.6 % High 11.0 - 15.0 % [facility] Hematocrit (Bld) [Volume fraction] 42.4 % 36.0 - 48.0 % [facility] Hemoglobin (Bld) [Mass/Vol] 13.9 g/dL 12.0 - 16.0 g/dL [facility] IMMATURE GRANULOCYTES ABS AUTO 0.[address] [facility] Immature granulocytes/100 WBC (Bld) 0.7 % High 0.0 - 0.5 % [facility] Interpretation and review of laboratory results Abnormal [facility] LYMPHOCYTES ABSOLUTE AUTO 3.5 [facility] Lymphocytes/100 WBC (Bld) 27.7 % 20.5 - 60.0 % [facility] MCH (RBC) [Entitic mass] 31.4 pg 26.7 - 34.[address] [facility] MCHC (RBC) [Mass/Vol] 32.8 g/dL 29.9 - 35.2 g/dL [facility] MCV (RBC) [Entitic vol] 95.7 fL 81.0 - 99.[address] [facility] MONOCYTES ABSOLUTE AUTO 0.9 High N [facility] Monocytes/100 WBC (Bld) 7.4 % 1.7 - 12.0 % [facility] NEUTROPHILS ABSOLUTE AUTO 7.[address] [facility] Neutrophils/100 WBC (Bld) 60.6 % 43.0 - 75.0 % [facility] Platelet mean volume (Bld) [Entitic vol] 10.9 fL 9.5 - 13.[address] [facility] EO # 0.4 [facility] PLT 219 [facility] RBC 4.43 [facility] WBC 12.[address] [facility] XR LSPINE 2_3 VIEWSon 2022 XR LSPINE [...] Date: 2022-06-07 11:15 Normal [facility] CBC AUTO DIFFon 04-12-2022 BASO # 0.1 103/ul Normal 0.0-0.1 [facility] Comment on above: Performed By: #### C BC ####[facility] [id number] [place] [address]Dr. Ricky Valenzuela Basophils/100 WBC (Bld) 0.5 % Normal 0.2-2.0 [facility] Comment on above: Performed By: #### C BC ####[facility] [facility] [id number] [place], [place] [address]Dr. Ricky Valenzuela EO # 0.3 103/ul Normal 0.0-0.7 [facility] Comment on above: Performed By: #### C BC ####[facility] [address] [place], [place] [address]Dr. Ricky Valenzuela Eosinophils/100 WBC (Bld) 3.0 % Normal 0.9-7.0 [facility] Comment on above: Performed By: #### C BC ####[facility] [address]er[address]ihv[address] [place], [place] [address]Dr. Ricky Valenzuela Erythrocyte distribution width (RBC) [Ratio] 14.8 % Normal 11.0-15.0 [facility] Comment on above: Performed By: #### C BC ####[facility] V[address]ss[address] [place], [place] [address]Dr. Ricky Valenzuela Hematocrit (Bld) [Volume fraction] 40.6 % Normal 36.0-48.0 [facility] Comment on above: Performed By: #### C BC ####[facility] Cl[address] [place], [place] [address]Dr. Ricky Valenzuela Hemoglobin (Bld) [Mass/Vol] 13.5 g/dL Normal 12.0-16.0 [facility] Comment on above: Performed By: #### C BC ####[facility] [address] [address]DrPasquale Suttonsharron Valenzuela IG # 0.16 10e3/ul Critically high 0.00-0.03 [facility] Comment on above: Performed By: #### C BC ####[facility] [address] [address]DrPasquale Valenzuela IG % 1.4 % Critically high 0.0-0.5 [facility] Comment on above: Performed By: #### C BC ####[facility] [address] [place], [place] [address]DrPasquale Valenzuela LYMPH # 3.4 103/ul Normal 1.2-3.8 [facility] Comment on above: Performed By: #### C BC ####[facility] [address] [place], [place] [address]DrPasquale Valenzuela Lymphocytes/100 WBC (Bld) 30.4 % Normal 20.5-60.0 [facility] Comment on above: Performed By: #### C BC ####[facility] Pep[address]fe[address] [place], [place] [address]DrPasquale Lesleysharron Valenzuela MANUAL DIFF REQ NO Normal [facility] Comment on above: Performed By: #### C BC ####[facility] [address] [address]DrPasquale Valenzuela MCH (RBC) [Entitic mass] 31.8 pg Normal 26.7-34.0 [facility] Comment on above: Performed By: #### C BC ####[facility] [address] [place], [place] [address]DrPasquale Valenzuela MCHC (RBC) [Mass/Vol] 33.3 g/dL Normal 29.9-35.2 [facility] Comment on above: Performed By: #### C BC ####[facility] Ct[address]xd[address] [place], [place] [address]DrPasquale Valenzuela MCV (RBC) [Entitic vol] 95.5 fL Normal 81.0-99.0 [facility] Comment on above: Performed By: #### C BC ####[facility] [address] [address]DrPasquale Valenzuela MONO # 0.9 103/ul Critically high 0.3-0.8 [facility] Comment on above: Performed By: #### C BC ####[facility] [address] [address]DrPasquale Valenzuela Monocytes/100 WBC (Bld) 7.7 % Normal 1.7-12.0 [facility] Comment on above: Performed By: #### C BC ####[facility] [address]uk[address]uref[address] [place], [place] [address]Dr. Ricky Valenzuela NEUT # 6.3 103/ul Normal 1.4-6.5 [facility] Comment on above: Performed By: #### C BC ####[facility] Q[address]vax[address]ctr[address] [place], [place] [address]Dr. Ricky Valenzuela Neutrophils/100 WBC (Bld) 57.0 % Normal 43.0-75.0 [facility] Comment on above: Performed By: #### C BC ####[facility] N[address] [place], [place] [address]DrPasquale Valenzuela Platelet mean volume (Bld) [Entitic vol] 9.8 fL Normal 9.5-13.5 [facility] Comment on above: Performed By: #### C BC ####[facility] [address]kyw[address]nl[address] [place], [place] [address]Dr. Ricky Valenzuela PLT 246 103/ul Normal 150-450 [facility] Comment on above: Performed By: #### C BC ####[facility] [address]are[address] [place], [place] [address]Dr. Ricky Valenzuela RBC 4.25 106/ul Normal 4.20-5.40 [facility] Comment on above: Performed By: #### C BC ####[facility] Ad[address] [place], [place] [address]DrPasquale Valenzuela WBC 11.1 103/ul Critically high 4.0-11.0 [facility] Comment on above: Performed By: #### C BC ####[facility] [address] [place] [address]DrPasquale Valenzuela GLYCOHEMOGLOBIN A1Con 2022 ADA RECOMMENDATION SEE BELOW Normal [facility] [place] Comment on above: Result Comment: ADA RECOMMENDED LIMIT 4.0 - 6.0 ADA THERAPEUTIC TARGET < 7.0 ACTION SUGGESTED > 7.0 Performed By: #### A 1C ####[facility] [address] [place] [address]DrPasquale Valenzuela Glucose [Mass/Vol] 160 mg/dL Normal [facility] [place] Comment on above: Performed By: #### A 1C ####[facility] [address] [address]DrPasquale Valenzuela HbA1c (Bld) [Mass fraction] 7.2 % Critically high 4.5-6.2 [facility] Comment on above: Performed By: #### A 1C ####[facility] [address] [address]DrPasquale Valenzuela MICROALBUMIN, RAND URon mALB <1.3 Normal <=30.0 [facility] Comment on above: Performed By: #### M ALBR #### [facility] [address] [address] [address] Ricky Valenzuela PROF 14(COMP METB)on 023 Albumin [Mass/Vol] 3.3 g/dL Critically low 3.4-5.0 [facility] Comment on above: Performed By: #### C MP #### [facility] [address] [address] [address] Ricky Valenzuela Albumin/Globulin [Mass ratio] 0.9 {ratio} Normal [facility] Comment on above: Performed By: #### C MP #### [facility] [address] [address] [address] Ricky Valenzuela ALP [Catalytic activity/Vol] 90 U/L Normal 46-116 [facility] Comment on above: Performed By: #### C MP #### [facility] [address] [address] [address] Ricky Valenzuela ALT [Catalytic activity/Vol] 42 U/L Normal 14-59 [facility] Comment on above: Performed By: #### C MP #### [facility] [address] [address] [address] Ricky Valenzuela Anion gap [Moles/Vol] 10.1 mmol/L Normal [facility] Comment on above: Performed By: #### C MP #### [facility] [address] [address] [address] Ricky Valenzuela AST [Catalytic activity/Vol] 21 U/L Normal 15-37 [facility] Comment on above: Performed By: #### C MP #### [facility] [address] [place] [address] Dr. Ricky Valenzuela Bilirubin [Mass/Vol] 0.3 mg/dL Normal 0.2-1.0 [facility] Comment on above: Performed By: #### C MP #### [facility] [address] [address] [address] Ricky Valenzuela Calcium [Mass/Vol] 9.8 mg/dL Normal 8.5-10.1 [facility] [place] Comment on above: Performed By: #### C MP #### [facility] [address] [place] [address] Dr. Ricky Valenzuela Chloride [Moles/Vol] 99 mmol/L Normal 98-107 [facility] Comment on above: Performed By: #### C MP #### [facility] [address] [address] [address] Ricky Valenzuela CO2 [Moles/Vol] 33.7 mmol/L Critically high 21.0-32.0 [facility] Comment on above: Performed By: #### C MP #### [facility] [address] [address] [address] Ricky Valenzuela Creatinine [Mass/Vol] 0.94 mg/dL Normal 0.55-1.02 [facility] Comment on above: Performed By: #### C MP #### [facility] [address] [address] [address] Ricky Valenzuela EGFR-AF SPANISH >60 Normal >=60 [facility] Comment on above: Performed By: #### C MP #### [facility] [address] [address] [address] Ricky Valenzuela EGFR-NON AF SPANISH >60 Normal >=60 [facility] Comment on above: Performed By: #### C MP #### [facility] [address] [address] [address] Ricky Valenzuela Globulin (S) [Mass/Vol] 3.8 g/dL Normal [facility] Comment on above: Performed By: #### C MP #### [facility] [address] [place] [address] Dr. Ricky Valenzuela Glucose [Mass/Vol] 168 mg/dL Critically high 74-106 [facility] Comment on above: Performed By: #### C MP #### [facility] [address] [place] [address] Dr. Ricky Valenzuela Potassium [Moles/Vol] 4.8 mmol/L Normal 3.5-5.1 [facility] Comment on above: Performed By: #### C MP #### [facility] [address] [place] [address] Dr. Ricky Valenzuela Protein [Mass/Vol] 7.1 g/dL Normal 6.4-8.2 [facility] [place] Comment on above: Performed By: #### C MP #### [facility] [address] [place] [address] Dr. Ricky Valenzuela Sodium [Moles/Vol] 138 mmol/L Normal 136-145 [facility] [place] Comment on above: Performed By: #### C MP #### [facility] [address] [address] [address] Ricky Valenzuela Urea nitrogen [Mass/Vol] 22.0 mg/dL Critically high 7.0-18.0 [facility] Comment on above: Performed By: #### C MP #### [facility] [address] [address] [address] Ricky Valenzuela Urea nitrogen/Creatinine [Mass ratio] 23.4 mg/mg Normal [facility] Comment on above: Performed By: #### C MP #### [facility] [id number] Ricky Valenzuela Cytologyon 08-30-2021 Cytology (NOTE) INTERPRETATION Vaginal material, (ThinPrep vial, Imaging-assisted review): Specimen Adequacy: Satisfactory for evaluation. Descriptive Diagnosis: Negative for intraepithelial lesion or malignancy. Resume Writer: CLARK Delacruz(ASCP) Electronically Signed Out [email or web address]/09/07/2021 Source: A: Vaginal material, (ThinPrep vial, Imaging-assisted review) Clinical History Hysterectomy Surgery: Salpingostomy; Ovary removal Z12.4 Encounter for screening for malignant neoplasm of cervix GYNECOLOGIC CYTOLOGY REPORT Patient Name: KARINA DE OLIVEIRA [facility] Rec: [id number] Path Number: [id number] [facility] CONSULTING PATHOLOGISTS [facility] ANATOMIC PATHOLOGY [address] [place] [id number] Normal [facility] Comment on above: Performed By: #### P PPVP #### [address] [id number] Supervisor Looping: Luca Cummins MD CBC AUTO DIFFon 08-09-2021 BASO # 0.1 103/ul Normal 0.0-0.1 [facility] Comment on above: Performed By: #### C BC #### [facility] [address] [place] [address] Dr. Ricky Valenzuela Basophils/100 WBC (Bld) 0.8 % Normal 0.2-2.0 [facility] Comment on above: Performed By: #### C BC #### [facility] [address] [place], [place] [id number] Dr. Ricky Valenzuela EO # 0.2 103/ul Normal 0.0-0.7 [facility] Comment on above: Performed By: #### C BC #### [facility] [address] [place] [address] Dr. Ricky Valenzuela Eosinophils/100 WBC (Bld) 2.1 % Normal 0.9-7.0 [facility] Comment on above: Performed By: #### C BC #### [facility] [address] [place] [address] Dr. Ricky Valenzuela Erythrocyte distribution width (RBC) [Ratio] 15.2 % Critically high 11.0-15.0 [facility] Comment on above: Performed By: #### C BC #### [facility] [address] [place] [address] Dr. Ricky Valenzuela Hematocrit (Bld) [Volume fraction] 41.5 % Normal 36.0-48.0 [facility] Comment on above: Performed By: #### C BC #### [facility] [address] [place] [address] Dr. Ricky Valenzuela Hemoglobin (Bld) [Mass/Vol] 13.5 g/dL Normal 12.0-16.0 [facility] Comment on above: Performed By: #### C BC #### [facility] [address] [place] [address] Dr. Ricky Valenzuela IG # 0.42 10e3/ul Critically high 0.00-0.03 [facility] Comment on above: Performed By: #### C BC #### [facility] [address] [place] [address] Dr. Ricky Valenzuela IG % 3.8 % Critically high 0.0-0.5 [facility] Comment on above: Performed By: #### C BC #### [facility] [address] [place] [address] Dr. Ricky Valenzuela LYMPH # 3.3 103/ul Normal 1.2-3.8 [facility] Comment on above: Performed By: #### C BC #### [facility] [address] [place] [address] Dr. Ricky Valenzuela Lymphocytes/100 WBC (Bld) 29.1 % Normal 20.5-60.0 [facility] Comment on above: Performed By: #### C BC #### [facility] [address] [place] [address] Dr. Ricky Valenzuela MANUAL DIFF REQ NO Normal [facility] Comment on above: Performed By: #### C BC #### [facility] [address] [address] [address] Ricky Valenzuela MCH (RBC) [Entitic mass] 32.4 pg Normal 26.7-34.0 [facility] Comment on above: Performed By: #### C BC #### [facility] [address] [address] [address] Ricky Valenzuela MCHC (RBC) [Mass/Vol] 32.5 g/dL Normal 29.9-35.2 [facility] Comment on above: Performed By: #### C BC #### [facility] [address] [place] [address] Dr. Ricky Valenzuela MCV (RBC) [Entitic vol] 99.5 fL Critically high 81.0-99 .0 [facility] Comment on above: Performed By: #### C BC #### [facility] [address] [place] [address] Dr. Ricky Valenzuela MONO # 0.8 103/ul Normal 0.3-0.8 [facility] Comment on above: Performed By: #### C BC #### [facility] [address] [place] [address] Dr. Ricky Valenzuela Monocytes/100 WBC (Bld) 7.5 % Normal 1.7-12.0 [facility] Comment on above: Performed By: #### C BC #### [facility] [address] [place] [address] Dr. Ricky Valenzuela NEUT # 6.3 103/ul Normal 1.4-6.5 [facility] Comment on above: Performed By: #### C BC #### [facility] [address] [place] [address] Dr. Ricky Valenzuela Neutrophils/100 WBC (Bld) 56.7 % Normal 43.0-75.0 [facility] Comment on above: Performed By: #### C BC #### [facility] [address] [place] [address] Dr. Ricky Valenzuela Platelet mean volume (Bld) [Entitic vol] 9.8 fL Normal 9.5-13.5 [facility] Comment on above: Performed By: #### C BC #### [facility] [address] [address] [address] Ricky Valenzuela PLT 265 103/ul Normal 150-450 [facility] Comment on above: Performed By: #### C BC #### [facility] [address] [place], [place] [address] Dr. Ricky Valenzuela RBC 4.17 106/ul Critically low 4.20-5.40 [facility] Comment on above: Performed By: #### C BC #### [facility] [address] [address] [address] Ricky Valenzuela WBC 11.2 103/ul Critically high 4.0-11.0 [facility] Comment on above: Performed By: #### C BC #### [facility] [address] [address] [address] Ricky Valenzuela GLYCOHEMOGLOBIN A1Con 2021 ADA RECOMMENDATION SEE BELOW Normal [facility] [place] Comment on above: Result Comment: ADA RECOMMENDED LIMIT 4.0 - 6.0 ADA THERAPEUTIC TARGET < 7.0 ACTION SUGGESTED > 7.0 Performed By: #### A 1C ####[facility] [address] [address]Dr. Ricky Valenzuela Glucose [Mass/Vol] 183 mg/dL Normal [facility] Comment on above: Performed By: #### A 1C ####[facility] [address] [id number]. Ricky Valenzuela HbA1c (Bld) [Mass fraction] 8.0 % Critically high 4.5-6.2 [facility] Comment on above: Performed By: #### A 1C ####[facility] [address] [id number]. Ricky Valenzuela LIPID PROFILEon 08-09-2021 CHOL-HDL RATIO NORM SEE BELOW Normal [facility] Comment on above: Result Comment: 3.3 - 4.4 LOW RISK 4.4 - 7.1 AVERAGE RISK 7.1 - 11.0 MODERATE RISK >11.0 HIGH RISK Performed By: #### C MP, LIPID #### [facility] [address] [address] [address] Ricky Valenzuela Cholesterol [Mass/Vol] 239 mg/dL Critically high <=200 [facility] Comment on above: Performed By: #### C MP, LIPID #### [facility] [address] [address] [address] Ricky Valenzuela Cholesterol in HDL [Mass/Vol] 36 mg/dL Critically low 40-60 [facility] Comment on above: Performed By: #### C MP, LIPID #### [facility] [address] [address] [address] Ricky Valenzuela Cholesterol in LDL [Mass/Vol] 164.2 mg/dL Normal [facility] Comment on above: Performed By: #### C MP, LIPID #### [facility] [address] [address] [address] Ricky Valenzuela Cholesterol.total/Myriam sterol in HDL [Mass ratio] 6.6 {ratio} Normal [facility] Comment on above: Performed By: #### C MP, LIPID #### [facility] [address] [address] [address] Ricky Valenzuela HDL NORMAL > or = 60 mg/dl - LO W CARDIOVASCULAR RISK <40 mg/dl - HIGH CARDIOVASCULAR RISK Normal [facility] Comment on above: Performed By: #### C MP, LIPID #### [facility] [address] [address] [address] Ricky Valenzuela LDL CALC NORMAL SEE BELOW Normal [facility] Comment on above: Result Comment: <100 mg/dl OPTIMAL 100 - 129 mg/dl NEAR OR ABOVE OPTIMAL 130 - 159 mg/dl BORDERLINE HIGH 160 - 189 mg/dl HIGH >190 mg/dl VERY HIGH Performed By: #### C MP, LIPID #### [facility] [address] [address] [address] Ricky Valenzuela Triglyceride [Mass/Vol] 194 mg/dL Critically high <=150 [facility] Comment on above: Performed By: #### C MP, LIPID #### [facility] [address] [address] [address] Ricky Valenzuela VLDL CALC 38.8 mg/dL Normal [facility] Comment on above: Performed By: #### C MP, LIPID #### [facility] [address] [address] [address] Ricky Valenzuela MICROALBUMIN, RAND URon 07-13 mALB 13.1 mg/L Normal <=30.0 [facility] Comment on above: Performed By: #### M ALBR ####[facility] [address] [address]Dr. Ricky Valenzuela PROF 14(COMP METB)on 022 Albumin [Mass/Vol] 3.3 g/dL Critically low 3.4-5.0 [facility] Comment on above: Performed By: #### C MP, LIPID #### [facility] [address] [place] [address] Dr. Ricky Valenzuela Albumin/Globulin [Mass ratio] 0.8 {ratio} Normal [facility] Comment on above: Performed By: #### C MP, LIPID #### [facility] [address] [place] [address] Dr. Ricky Valenzuela ALP [Catalytic activity/Vol] 93 U/L Normal 46-116 [facility] Comment on above: Performed By: #### C MP, LIPID #### [facility] [address] [place] [address] Dr. Ricky Valenzuela ALT [Catalytic activity/Vol] 37 U/L Normal 14-59 [facility] Comment on above: Performed By: #### C MP, LIPID #### [facility] [address] [place] [address] Dr. Ricky Valenzuela Anion gap [Moles/Vol] 10.9 mmol/L Normal [facility] Comment on above: Performed By: #### C MP, LIPID #### [facility] [address] [place] [address] Dr. Ricky Valenzuela AST [Catalytic activity/Vol] 10 U/L Critically low 15-37 [facility] Comment on above: Performed By: #### C MP, LIPID #### [facility] [address] [place] [address] Dr. Ricky Valenzuela Bilirubin [Mass/Vol] 0.2 mg/dL Normal 0.2-1.0 [facility] Comment on above: Performed By: #### C MP, LIPID #### [facility] [address] [place] [address] Dr. Ricky Valenzuela Calcium [Mass/Vol] 9.0 mg/dL Normal 8.5-10.1 [facility] [place] Comment on above: Performed By: #### C MP, LIPID #### [facility] [address] [place] [address] Dr. Ricky Valenzuela Chloride [Moles/Vol] 100 mmol/L Normal 98-107 [facility] Comment on above: Performed By: #### C MP, LIPID #### [facility] [address] [place] [address] Dr. Ricky Valenzuela CO2 [Moles/Vol] 32.2 mmol/L Critically high 21.0-32.0 [facility] Comment on above: Performed By: #### C MP, LIPID #### [facility] [address] [place] [address] Dr. Ricky Valenzuela Creatinine [Mass/Vol] 0.95 mg/dL Normal 0.55-1.02 [facility] Comment on above: Performed By: #### C MP, LIPID #### [facility] [address] [place] [address] Dr. Ricky Valenzuela EGFR-AF SPANISH >60 Normal >=60 [facility] Comment on above: Performed By: #### C MP, LIPID #### [facility] [address] [place] [address] Dr. Ricky Valenzuela EGFR-NON AF SPANISH >60 Normal >=60 [facility] Comment on above: Performed By: #### C MP, LIPID #### [facility] [address] [place] [address] Dr. Ricky Valenzuela Globulin (S) [Mass/Vol] 4.2 g/dL Normal T [facility] Comment on above: Performed By: #### C MP, LIPID #### [facility] [address] [place] [address] Dr. Ricky Valenzuela Glucose [Mass/Vol] 200 mg/dL Critically high 74-106 [facility] Comment on above: Performed By: #### C MP, LIPID #### [facility] [address] [place] [address] Dr. Ricky Valenzuela Potassium [Moles/Vol] 4.1 mmol/L Normal 3.5-5.1 [facility] Comment on above: Performed By: #### C MP, LIPID #### [facility] [address] [place] [address] Dr. Ricky Valenzuela Protein [Mass/Vol] 7.5 g/dL Normal 6.4-8.2 [facility] Comment on above: Performed By: #### C MP, LIPID #### [facility] [address] [place] [address] Dr. Ricky Valenzuela Sodium [Moles/Vol] 139 mmol/L Normal 136-145 [facility] Comment on above: Performed By: #### C MP, LIPID #### [facility] [address] [place] [address] Dr. Ricky Valenzuela Urea nitrogen [Mass/Vol] 13.0 mg/dL Normal 7.0-18.0 [facility] Comment on above: Performed By: #### C MP, LIPID #### [facility] [address] [place] [address] Dr. Ricky Valenzuela Urea nitrogen/Creatinine [Mass ratio] 13.7 mg/mg Normal [facility] Comment on above: Performed By: #### C MP, LIPID #### [facility] [address] [place] [address] Dr. Ricky Valenzuela POINT OF CARE GLUCOSEon 05- Glucose [Mass/Vol] 176 mg/dL Critically high 74-106 [facility] Comment on above: Performed By: #### P OCGLUC #### [facility] [address] [place] [address] Dr. Ricky Valenzuela Vital Signs Date Time Vital Sign Value Performing Clinician Facility 11-23-2024 13:07-0400 Body height 154.94 cm Ameena Vera [employer] Work Phone: [facility] 11-23-2024 13:07-0400 Body mass index (BMI) [Ratio] 39.9 kg/m2 Ameena Pohholz [employer] Work Phone: [facility] 11-23-2024 13:07-0400 Body temperature 98.3 [degF] Ameena Pohholz [employer] Work Phone: [facility] 11-23-2024 13:07-0400 Body weight 95.76 kg Ameena Aichholz [employer] Work Phone: [facility] 11-23-2024 13:07-0400 Diastolic blood pressure 62 mm[Hg] Ameena Aichholz [employer] Work Phone: [facility] 11-23-2024 13:07-0400 Heart rate 105 /min Ameena Aichholz [employer] Work Phone: [facility] 11-23-2024 13:07-0400 Respiratory rate 18 /min Ameena Aichholz [employer] Work Phone: [facility] 11-23-2024 13:07-0400 SaO2% (BldA) [Mass fraction] 92 % Ameena Aichholz [employer] Work Phone: [facility] 11-23-2024 13:07-0400 Systolic blood pressure 108 mm[Hg] Ameena Pohholz [employer] Work Phone: [facility] 11-02-2024 09:56-0400 Body height 152.4 cm Kasi Bennett MD Work Phone: [facility] 11-02-2024 09:56-0400 Body mass index (BMI) [Ratio] 40.62 kg/m2 Kasi Bennett MD Work Phone: [facility] 11-02-2024 09:56-0400 Body weight 94.35 kg Kasi Bennett MD Work Phone: [facility] 11-02-2024 09:56-0400 Heart rate 83 /min Kasi Bennett MD Work Phone: [facility] 11-02-2024 09:56-0400 Respiratory rate 18 /min Kasi Bennett MD Work Phone: [facility] 11-02-2024 09:56-0400 SaO2% (BldA) [Mass fraction] 95 % Kasi Bennett MD Work Phone: [facility] 10-19-2024 11:44-0400 Body temperature 98.1 [degF] Ameena Aichholz Work Phone: [facility] 10-19-2024 11:44-0400 Body weight 96.41 kg Ameena Aichholz Work Phone: [facility] 10-19-2024 11:44-0400 Diastolic blood pressure 78 mm[Hg] Ameena Aichholz Work Phone: [facility] 10-19-2024 11:44-0400 Heart rate 93 /min Ameena Aichholz Work Phone: [facility] 10-19-2024 11:44-0400 Respiratory rate 16 /min Ameena Aichholz Work Phone: [facility] 10-19-2024 11:44-0400 SaO2% (BldA) [Mass fraction] 97 % Ameena Aichholz Work Phone: [facility] 10-19-2024 11:44-0400 Systolic blood pressure 138 mm[Hg] Ameena Aichholz Work Phone: [facility] 08-20-2024 11:10-0400 Diastolic blood pressure 58 mm[Hg] Ameena Aichholz [employer] Work Phone: [facility] 08-20-2024 11:10-0400 Systolic blood pressure 90 mm[Hg] Ameena Aichholz [employer] Work Phone: [facility] 08-20-2024 10:37-0400 Body mass index (BMI) [Ratio] 39.74 kg/m2 Ameena Vera [employer] Work Phone: [facility] 08-20-2024 10:37-0400 Body temperature 98.49 [degF] Ameena Vera [employer] Work Phone: [facility] 08-20-2024 10:37-0400 Body weight 96.98 kg Ameena Vera [employer] Work Phone: [facility] 08-20-2024 10:37-0400 Heart rate 101 /min Ameena Vera [employer] Work Phone: [facility] 08-20-2024 10:37-0400 Respiratory rate 18 /min Ameena Vera [employer] Work Phone: [facility] 08-20-2024 10:37-0400 SaO2% (BldA) [Mass fraction] 93 % Ameena Vera [employer] Work Phone: [facility] 07-29-2024 14:08-0400 Body height 156.2 cm Kasi Bennett MD Work Phone: [facility] 07-29-2024 14:08-0400 Body mass index (BMI) [Ratio] 39.04 kg/m2 Kasi Bennett MD Work Phone: [facility] 07-29-2024 14:08-0400 Body weight 95.25 kg Kasi Bennett MD Work Phone: [facility] 07-29-2024 14:08-0400 Diastolic blood pressure 64 mm[Hg] Kasi Bennett MD Work Phone: [facility] 07-29-2024 14:08-0400 Heart rate 86 /min Kasi Bennett MD Work Phone: [facility] 07-29-2024 14:08-0400 Respiratory rate 18 /min Kasi Bennett MD Work Phone: [facility] 07-29-2024 14:08-0400 SaO2% (BldA) [Mass fraction] 93 % Kasi Bennett MD Work Phone: [facility] 07-29-2024 14:08-0400 Systolic blood pressure 100 mm[Hg] Kasi Bennett MD Work Phone: [facility] 05-28-2024 13:16-0400 Body height 154.94 cm [facility] 05-28-2024 13:16-0400 Body mass index (BMI) [Ratio] 39.4 kg/m2 [facility] 05-28-2024 13:16-0400 Body weight 94.8 kg [facility] 05-19-2024 11:10-0400 Body height 157.5 cm Ameenaovidio Vera [employer] Work Phone: [facility] 05-19-2024 11:10-0400 Body mass index (BMI) [Ratio] 39.03 kg/m2 Ameena Nettiez [employer] Work Phone: [facility] 05-19-2024 11:10-0400 Body temperature 98.29 [degF] Ameena Nettiez [employer] Work Phone: [facility] 05-19-2024 11:10-0400 Body weight 96.8 kg Ameena Nettiez [employer] Work Phone: [facility] 05-19-2024 11:10-0400 Diastolic blood pressure 80 mm[Hg] Ameena Nettiez [employer] Work Phone: [facility] 05-19-2024 11:10-0400 Heart rate 91 /min Ameena Nettiez [employer] Work Phone: [facility] 05-19-2024 11:10-0400 Respiratory rate 18 /min Ameena Nettiez [employer] Work Phone: [facility] 05-19-2024 11:10-0400 SaO2% (BldA) [Mass fraction] 96 % Ameena Aichholz [employer] Work Phone: [facility] 05-19-2024 11:10-0400 Systolic blood pressure 116 mm[Hg] Ameena Davislorie [employer] Work Phone: [facility] 04-21-2024 13:08-0400 Body height 157.5 cm Za Villelamor [employer]AL [employer] Work Phone: [facility] 04-21-2024 13:08-0400 Body mass index (BMI) [Ratio] 39.51 kg/m2 Za Villelamor [employer] Work Phone: [facility] 04-21-2024 13:08-0400 Body weight 97.98 kg Za Gillmor [employer] Work Phone: [facility] 04-21-2024 13:08-0400 Diastolic blood pressure 86 mm[Hg] Za Villelamor [employer] Work Phone: [facility] 04-21-2024 13:08-0400 Heart rate 96 /min Za Villelamor [employer] Work Phone: [facility] 04-21-2024 13:08-0400 SaO2% (BldA) [Mass fraction] 93 % Za Villelamor [employer] Work Phone: [facility] 04-21-2024 13:08-0400 Systolic blood pressure 148 mm[Hg] Za Villelamor [employer] Work Phone: [facility] 03-30-2024 09:40-0500 Body height 157.5 cm Sonam Drake [employer] Work Phone: [facility] 03-30-2024 09:40-0500 Body mass index (BMI) [Ratio] 39.51 kg/m2 Sonam Drake [employer] Work Phone: [facility] 03-30-2024 09:40-0500 Body temperature 97.3 [degF] Sonam Drake [employer] Work Phone: [facility] 03-30-2024 09:40-0500 Body weight 97.98 kg Sonam Drake [employer] Work Phone: [facility] 03-30-2024 09:40-0500 Diastolic blood pressure 74 mm[Hg] Sonam Drake [employer] Work Phone: [facility] 03-30-2024 09:40-0500 Heart rate 76 /min Sonam Drake [employer] Work Phone: [facility] 03-30-2024 09:40-0500 Respiratory rate 16 /min Sonam Drake [employer] Work Phone: [facility] 03-30-2024 09:40-0500 SaO2% (BldA) [Mass fraction] 98 % Sonam Drake [employer] Work Phone: [facility] 03-30-2024 09:40-0500 Systolic blood pressure 130 mm[Hg] Sonam Drake [employer] Work Phone: [facility] 03-03-2024 10:13-0500 Body height 157.5 cm Sonam Drake [employer] Work Phone: [facility] 03-03-2024 10:13-0500 Body mass index (BMI) [Ratio] 39.51 kg/m2 Sonam Drake [employer] Work Phone: [facility] 03-03-2024 10:13-0500 Body temperature 97.2 [degF] Sonam Drake [employer] Work Phone: [facility] 03-03-2024 10:13-0500 Body weight 97.98 kg Sonam Drake [employer] Work Phone: [facility] 03-03-2024 10:13-0500 Diastolic blood pressure 76 mm[Hg] Sonam Drake [employer] Work Phone: [facility] 03-03-2024 10:13-0500 Heart rate 84 /min Sonam Drake [employer] Work Phone: [facility] 03-03-2024 10:13-0500 Respiratory rate 16 /min Sonam Riverpatrick [employer] Work Phone: [facility] 03-03-2024 10:13-0500 SaO2% (BldA) [Mass fraction] 96 % Sonam Drake [employer] Work Phone: [facility] 03-03-2024 10:13-0500 Systolic blood pressure 120 mm[Hg] Sonam Drake [employer] Work Phone: [facility] 12-31-2023 10:06-0500 Body height 157.5 cm Sivan Solo DO Work Phone: [facility] 12-31-2023 10:06-0500 Body mass index (BMI) [Ratio] 39.14 kg/m2 Sivan Solo DO Work Phone: [facility] 12-31-2023 10:06-0500 Body weight 97.07 kg Sivan Solo DO Work Phone: [facility] 12-31-2023 10:06-0500 Diastolic blood pressure 72 mm[Hg] Sivan Solo DO Work Phone: [facility] 12-31-2023 10:06-0500 Heart rate 95 /min Sivan Solo DO Work Phone: [facility] 12-31-2023 10:06-0500 SaO2% (BldA) [Mass fraction] 97 % Sivan Solo DO Work Phone: [facility] 12-31-2023 10:06-0500 Systolic blood pressure 118 mm[Hg] Sivan Solo DO Work Phone: [facility] 12-30-2023 10:46-0500 Body mass index (BMI) [Ratio] 40.06 kg/m2 Sonam Drake [employer] Work Phone: [facility] 12-30-2023 10:46-0500 Body weight 99.34 kg Sonam Drake [employer] Work Phone: [facility] 12-30-2023 10:46-0500 Diastolic blood pressure 74 mm[Hg] Sonam Drake [employer] Work Phone: [facility] 12-30-2023 10:46-0500 Heart rate 97 /min Sonam Drake [employer] Work Phone: [facility] 12-30-2023 10:46-0500 SaO2% (BldA) [Mass fraction] 98 % Sonam Drake [employer] Work Phone: [facility] 12-30-2023 10:46-0500 Systolic blood pressure 98 mm[Hg] Sonam Drake [employer] Work Phone: [facility] 10-03-2023 10:07-0400 Body height 157.5 cm Sonam Drake [employer] Work Phone: [facility] 10-03-2023 10:07-0400 Body mass index (BMI) [Ratio] 39.32 kg/m2 Sonam Drake [employer] Work Phone: [facility] 10-03-2023 10:07-0400 Body temperature 97.5 [degF] Sonam Drake [employer] Work Phone: [facility] 10-03-2023 10:07-0400 Body weight 97.52 kg Sonam Drake [employer] Work Phone: [facility] 10-03-2023 10:07-0400 Diastolic blood pressure 70 mm[Hg] Sonam Drake [employer] Work Phone: [facility] 10-03-2023 10:07-0400 Heart rate 107 /min Sonam Drake [employer] Work Phone: [facility] Comment on above: 97% O2 10-03-2023 10:07-0400 Systolic blood pressure 90 mm[Hg] Sonam Drake [employer] Work Phone: [facility] 01-18-2023 09:10-0500 Body height 156.21 cm Elle Hendricks Other [facility] Other 01-18-2023 09:10-0500 Body mass index (BMI) [Ratio] 42.82 kg/m2 Elle Dejesusmond Other [facility] Other 01-18-2023 09:10-0500 Body temperature 98.2 [degF] Elle Ruthie Other [facility] Other 01-18-2023 09:10-0500 Body weight 104.51 kg Elle Ruthie Other [facility] Other 01-18-2023 09:10-0500 Diastolic blood pressure 92 mm[Hg] Elle Ruthie Other [facility] Other 01-18-2023 09:10-0500 Respiratory rate 18 /min Elle Ruthie Other [facility] Other 01-18-2023 09:10-0500 SaO2% (BldA) [Mass fraction] 97 % Elle Ruthie Other [facility] Other 01-18-2023 09:10-0500 Systolic blood pressure 145 mm[Hg] Elle Ruthie Other [employer] Other Encounters Encounter Date Encounter Type Care Provider Facility Start: 11-23-2024 End: 11-23-2024 ambulatory Ameena WALTER Work Phone: [facility] Work Phone: Start: 11-23-2024 End: 11-23-2024 Patient encounter procedure Ameena J Aichholz [employer] [facility] Work Phone: Start: 11-02-2024 End: 11-02-2024 Bamboo flowsheet Kasi Bennett MD [facility] Start: 11-02-2024 End: 11-02-2024 Bamboo flowsheet Kasi Bennett MD Work Phone: [facility] Start: 11-02-2024 End: 11-02-2024 Office outpatient visit 25 minutes Kasi Bennett MD Work Phone: [facility] Comment on above: Low serum parathyroi d hormone (PTH) (Primary Dx); Hypercalcemia; Vitamin D deficiency; Hypomagnesemia Start: 11-02-2024 End: 11-02-2024 ambulatory KASI BENNETT Not Available Start: 10-26-2024 Non-patient / Non-visit Kasi cali MD -[facility] Work Phone: Start: 10-26-2024 End: 10-26-2024 ambulatory Tanya Crowley MD Facility:[facility] Start: 10-19-2024 End: 10-19-2024 ambulatory Ameena Vera Work Phone: [facility] Work Phone: Start: 10-19-2024 End: 10-19-2024 Patient encounter procedure Ameena Vera [employer] [facility] Work Phone: Start: 10-05-2024 End: 10-05-2024 Refill Jose Chandler MD Work Phone: [facility] Comment on above: Other hyperlipidemia Start: 09-29-2024 End: 09-29-2024 Refill Ameena Vera [employer] Work Phone: [facility] Comment on above: Lumbar back pain Start: 09-23-2024 End: 09-24-2024 Refill Ameenaovidio Vera [employer] Work Phone: [facility] Comment on above: Diabetic polyneuropa thy associated with type 2 diabetes mellitus (HCC) Start: 08-20-2024 End: 08-31-2024 Refill Ameenaovidio Vera [employer] Work Phone: [facility] Comment on above: Bilateral lower extr emity edema; Migraine with aura and without status migrainosus, not intractable ; Type 2 diabetes mellitus with diabetic microalbuminuria, without long-term current use of insulin (HCC); Osteoporosis, unspecified osteoporosis type, unspecified pathological fracture presence Start: 08-20-2024 End: 08-20-2024 Office outpatient visit 25 minutes Ameena Vera [employer] Work Phone: [facility] Comment on above: Type 2 diabetes cory itus with diabetic microalbuminuria, without long-term current use of insulin (HCC) (Primary Dx); Essential hypertension; Morbid (severe) obesity due to excess calories (E66.01); Cigarette nicotine dependence without complication; Chronic gout of multiple sites, unspecified cause; Gastroesophageal reflux disease without esophagitis; Bilateral lower extremity edema Start: 08-05-2024 End: 08-05-2024 Refill Ameena Chuy [employer] Work Phone: [facility] Comment on above: Chronic gout of mult iple sites, unspecified cause (Primary Dx) Type 2 diabetes cory itus with diabetic microalbuminuria, without long-term current use of insulin (HCC) Start: 08-02-2024 End: 08-04-2024 Refill Jose Chandler MD Work Phone: [facility] Comment on above: Lumbar back pain Start: 07-29-2024 End: 07-29-2024 Bamboo flowsheet Kasi Bennett MD Work Phone: [facility] Start: 07-29-2024 End: 07-29-2024 Bamboo flowsheet Kasi Bennett MD Work Phone: [facility] Start: 07-29-2024 End: 07-29-2024 Office outpatient new 45 minutes Kasi Bennett MD [facility] Comment on above: Hypercalcemia (Prima ry Dx); Low serum parathyroid hormone (PTH); Vitamin D deficiency Start: 07-29-2024 End: 07-29-2024 ambulatory KASI BENNETT Not Available Start: 07-26-2024 End: 07-27-2024 Refill Ameena Aichholz [employer] Work Phone: [facility] Comment on above: Lumbar back pain Start: 07-22-2024 End: 07-22-2024 Refill Jose Chandler MD Work Phone: [facility] Comment on above: Type 2 diabetes cory itus with diabetic microalbuminuria, without long-term current use of insulin ([facility]) Start: 07-14-2024 End: 07-14-2024 Orders Only Ameena Aichholz [employer] Work Phone: [facility] Comment on above: Low serum parathyroi d hormone (PTH) (Primary Dx) Start: 07-09-2024 End: 07-09-2024 Clinisync Result Encounter Ameena Aichholz [employer] Work Phone: [facility] External Department Unsolicited Start: 07-09-2024 End: 07-09-2024 Clinisync Result Encounter Ameena Aichholz [employer] Work Phone: [facility] External Department Unsolicited Start: 06-23-2024 End: 06-23-2024 Refill Ameena Aichholz [employer] Work Phone: [facility] Comment on above: Diabetic polyneuropa thy associated with type 2 diabetes mellitus ([facility]) Start: 06-22-2024 End: 06-22-2024 ambulatory Tanya Crowley MD Facility:[facility] Start: 06-11-2024 End: 06-11-2024 Refill Ameena Aichholz [employer] Work Phone: [facility] Comment on above: Acute non-recurrent sinusitis of other sinus (Primary Dx) Start: 06-03-2024 End: 06-03-2024 Orders Only Ameena Aichholz [employer] Work Phone: [facility] Comment on above: Hypercalcemia (Prima ry Dx); Low serum parathyroid hormone (PTH) Start: 05-28-2024 End: 05-28-2024 Patient encounter procedure [facility] Work Phone: Start: 05-28-2024 End: 05-28-2024 Patient encounter procedure [facility] Start: 05-28-2024 End: 05-28-2024 ambulatory uLi Banks II Facility:[facility] Start: 05-22-2024 End: 05-22-2024 Orders Only Ameena Aichholz [employer] Work Phone: [facility] Comment on above: Hypercalcemia (Prima ry Dx) Start: 05-21-2024 End: 05-21-2024 Clinisync Result Encounter Ameena Aichholz [employer] Work Phone: [facility] Unsolicited Start: 05-21-2024 End: 05-21-2024 Clinisync Result Encounter Ameena Aichholz [employer] Work Phone: [facility] Unsolicited Start: 05-19-2024 End: 05-19-2024 Bamboo flowsheet Ameena Aichholz [employer] Work Phone: [facility] Start: 05-19-2024 End: 05-19-2024 Bamboo flowsheet Ameena Aichholz [employer] Work Phone: [facility] Start: 05-19-2024 End: 05-19-2024 ambulatory AMEENA AICHHOLZ Not Available Start: 05-19-2024 End: 05-19-2024 Office outpatient visit 25 minutes Ameena Aichholz [employer] Work Phone: [facility] Comment on above: Type 2 diabetes cory itus with diabetic microalbuminuria, without long-term current use of insulin ([facility]) (Primary Dx); Morbid (severe) obesity due to excess calories ([facility]); Other hyperlipidemia; Body mass index (BMI) 39.0-39.9, adult; JANETT (obstructive sleep apnea); Bilateral lower extremity edema; Migraine with aura and without status migrainosus, not intractable ([facility]); Cigarette nicotine dependence without complication; Hypercalcemia; Essential hypertension; Elevated blood uric acid level; Lumbar back pain; Gastroesophageal reflux disease without esophagitis; Chronic gout of multiple sites, unspecified cause; Acute pain of right knee; Diabetic polyneuropathy associated with type 2 diabetes mellitus ([facility]) Start: 05-06-2024 End: 05-06-2024 Refill Jose Chandler MD Work Phone: [facility] Comment on above: Bilateral lower extr emity edema (Primary Dx) Start: 04-21-2024 End: 04-21-2024 Bamboo flowsheet Za Wilkerson [employer] Work Phone: [facility] Start: 04-21-2024 End: 04-21-2024 Bamboo flowsheet Za Wilkerson [employer] Work Phone: [facility] Start: 04-21-2024 End: 04-21-2024 ambulatory [place] WILKERSON Not Available Start: 04-21-2024 End: 04-21-2024 Office outpatient visit 25 minutes Za Wilkerson NP Work Phone: [facility] Comment on above: JANETT (obstructive sle ep apnea) (Primary Dx); Hypersomnia; Snoring; Primary insomnia; Tobacco abuse Start: 03-30-2024 End: 03-30-2024 Bamboo flowsheet Sonam Drake [employer] Work Phone: [facility] Start: 03-30-2024 End: 03-30-2024 Bamboo flowsheet Sonam Drake [employer] Work Phone: [facility] Start: 03-30-2024 [...] microalbuminuria, without long-term current use of insulin ([facility]) Start: 03-30-2024 End: 03-30-2024 Office outpatient visit 15 minutes Sonam Drake [employer] Work Phone: [facility] Comment on above: Type 2 diabetes cory itus with diabetic microalbuminuria, without long-term current use of insulin ([facility]) (Primary Dx); Essential hypertension; Other hyperlipidemia ([facility]); JANETT (obstructive sleep apnea); Type 2 diabetes mellitus without complication, without long-term current use of insulin ([facility]) Start: 03-18-2024 End: 03-18-2024 Clinisync Result Encounter Generic External Data Provider [facility] External Department Unsolicited Start: 03-18-2024 End: 03-18-2024 Clinisync Result Encounter Generic External Data Provider [facility] External Department Unsolicited Start: 03-16-2024 End: 03-16-2024 Refill Sonam Drake [employer] Work Phone: [facility] Comment on above: Gastroesophageal ref lux disease without esophagitis Start: 03-09-2024 End: 03-09-2024 Refill Sonam Drake [employer] Work Phone: [facility] Comment on above: Osteoporosis, unspec ified osteoporosis type, unspecified pathological fracture presence ([facility]) Start: 03-03-2024 End: 03-03-2024 Bamboo flowsheet Sonam Drake [employer]AL [employer] Work Phone: [facility] Start: 03-03-2024 End: 03-03-2024 Bamboo flowsheet Sonam Drake [employer]AL [employer] Work Phone: [facility] Start: 03-03-2024 End: 03-03-2024 ambulatory SONAM DRAKE Not Available Start: 03-03-2024 End: 03-03-2024 Office outpatient visit 10 minutes Sonam Drake [employer]AL [employer] Work Phone: [facility] Comment on above: Upper respiratory in fection with cough and congestion (Primary Dx); Lumbar back pain; Migraine with aura and without status migrainosus, not intractable ([facility]); Type 2 diabetes mellitus with diabetic microalbuminuria, without long-term current use of insulin ([facility]); Diabetic polyneuropathy associated with type 2 diabetes mellitus ([facility]); Other hyperlipidemia ([facility]) Start: 01-30-2024 End: 01-30-2024 Refill Jolly Castaneda MA [facility] Comment on above: Lumbar back pain (Pr imary Dx); Type 2 diabetes mellitus with diabetic microalbuminuria, without long-term current use of insulin ([facility]) Start: 01-14-2024 End: 01-14-2024 Refill Jolly Castaneda MA [facility] Comment on above: Lumbar back pain Start: 12-31-2023 End: 12-31-2023 Clinisync Result Encounter Sonam Drake [employer] Work Phone: [facility] External Department Unsolicited Start: 12-31-2023 End: 12-31-2023 Clinisync Result Encounter Sonam Drake [employer] Work Phone: [facility] External Department Unsolicited Start: 12-31-2023 End: 12-31-2023 Office consultation new/estab patient 60 min Sivan Solo DO Work Phone: [facility] [address] Comment on above: JANETT (obstructive sle ep apnea) (Primary Dx); Hypersomnia; Snoring; Primary insomnia; Tobacco abuse Start: 12-31-2023 End: 12-31-2023 ambulatory SIVAN SOLO Not Available Start: 12-30-2023 End: 12-30-2023 Bamboo flowsheet Sonam Drake [employer]AL [employer] Work Phone: [facility] Start: 12-30-2023 End: 12-30-2023 Bamboo flowsheet Sonam Drake [employer] Work Phone: [facility] Start: 12-30-2023 End: 12-30-2023 Office outpatient visit 15 minutes Sonam Drake [employer] Work Phone: [facility] Comment on above: Type 2 diabetes cory itus with diabetic microalbuminuria, without long-term current use of insulin ([facility]) (Primary Dx); Essential hypertension; Other hyperlipidemia ([facility]); Snoring; Mixed urge and stress incontinence Start: 12-30-2023 End: 12-30-2023 ambulatory SONAM DRAKE Not Available Start: 12-17-2023 End: 12-17-2023 Refill Jolly Castaneda MA [facility] Comment on above: Migraine with aura a nd without status migrainosus, not intractable ([facility]); Diabetic polyneuropathy associated with type 2 diabetes mellitus ([facility]) Start: 12-17-2023 End: 12-18-2023 Refill Sonam Drake [employer] Work Phone: [facility] Comment on above: Gout, unspecified ca use, unspecified chronicity, unspecified site Start: 11-04-2023 End: 11-04-2023 Refill Stiven Omalley MA [facility] Comment on above: Gout, unspecified ca use, unspecified chronicity, unspecified site Start: 11-01-2023 End: 11-02-2023 Refill Stiven Omalley MA [facility] Comment on above: Diabetic polyneuropa thy associated with type 2 diabetes mellitus ([facility]) Start: 10-04-2023 ambulatory Facility:[facility] Start: 10-03-2023 End: 10-03-2023 Bamboo flowsheet Sonam Drake [employer]AL [employer] Work Phone: [facility] Start: 10-03-2023 End: 10-03-2023 Bamboo flowsheet Sonam Drake PROFESSIONAL [employer] Work Phone: [facility] Start: 10-03-2023 End: 10-03-2023 Office outpatient visit 25 minutes Sonam Drake NP Work Phone: [facility] [...] incontinence; Snoring Start: 04-30-2023 End: 04-30-2023 ambulatory [facility] Work Phone: Start: 04-30-2023 End: 04-30-2023 Patient encounter procedure [facility] Work Phone: Start: 03-21-2023 Orders Only Shaikh Maricel HOLLIS Work Phone: [facility] Comment on above: Diabetic polyneuropa thy associated with type 2 diabetes mellitus (CMS/HCC) (Primary Dx) Start: 03-19-2023 End: 03-19-2023 ambulatory Ana Luisa Curtis Other [employer] Other Start: 03-19-2023 Office outpatient vi sit 15 minutes Ana Luisajesus Curtis [facility] Start: 01-23-2023 End: 01-23-2023 ambulatory Ana Luisa Calvey Other [facility] Other Start: 01-23-2023 Office outpatient vi sit 15 minutes Ana Luisajesus Curtis [facility] Start: 01-18-2023 End: 01-18-2023 ambulatory Elle Hendricks Other [employer] Other Start: 01-18-2023 Office outpatient vi sit 15 minutes Elle Hendricks [facility] Start: 09-19-2022 End: 09-19-2022 ambulatory Ana Luisajesus Curtis Other [employer] Other Start: 09-19-2022 Telephone encounter Ana Luisa Kirsten [facility] Start: 07-12-[address] JONATHAN EDWARDS Facili ty:[facility] Start: 06-07-2022 End: 06-08-[address] JONATHAN EDWARDS Facility:[facility] Start: 05-02-2022 End: 05-02-2022 ambulatory Ana Luisa Curtis Other [employer] Other Start: 05-02-2022 Office outpatient ne w [...] . Facility:[facility] Start: 08-30-2021 End: 08-31-2021 ambulatory RADHAELIEL SNOWDEN [facility] Start: 08-30-2021 End: 08-30-2021 Subsequent hospital visit by physician Sr Edwards DO Work Phone: [facility] Comment on above: Routine cervical sme ar Start: 08-16-2021 Encounter for genera l adult medical examination without abnormal findings DR RICARDO HOLM . [facility] Start: 08-09-2021 End: 08-10-2021 Encounter for [...] 08-20-2024 Hemoglobin glycosyla anne a1c Ameena Aichholz [employer] Work Phone: Start: 07-09-2024 ALL BASIC METABOLIC PANEL Ameena Chuy [employer] Work Phone: Start: 05-28-2024 Plain radiography of pelvis Start: 05-28-2024 X-ray of right knee, four views Start: 05-21-2024 Radiologic examinati on knee 3 views Ameena Vera [employer] Work Phone: Start: 05-21-2024 ALL CBC WITH AUTO DIFF Ameena Aichholz [employer] Work Phone: Start: 05-19-2024 Hemoglobin glycosyla anne a1c Ameena Aichholz [employer] Work Phone: Start: 03-30-2024 Hemoglobin glycosyla anne a1c Sonam Drake [employer] Work Phone: Start: 03-18-2024 MM TOMOSYNTHESIS SCR EENING BI Generic External Data Provider Start: 03-18-2024 Mammography Generic Pr ovider Start: 12-31-2023 ALL CBC WITH AUTO DIFF Sonam Drake [employer] Work Phone: Start: 03-20-2023 Mammography Shaikh Marie calero MD Work Phone: Start: 08-30-2021 Microscopic observat ion [Identifier] in Cervix by Cyto stain Sr House DO Work Phone: Plan of Treatment Date Care Activity Detail Author Start: 03-28-2026 Screening for malignant neoplasm of colon [facility] Start: 03-08-2026 Screening for malignant neoplasm of colon [facility] Start: 05-21-2025 Urine screening for protein Diabetes: Urine Protein Screening [facility] Start: 05-03-2025 End: 05-03-2025 Patient encounter procedure 05/03/2025 1:00 PM EDT Office Visit [facility] [address] [place] [phone] Kasi Bennett MD [address] [place] [address] [facility] Start: 04-06-2025 End: 04-06-2025 Patient encounter procedure 04/06/2025 1:15 PM EST Office Visit [facility] [address] [place] [phone] Alicia Monroy MD [address] [place] [address] [facility] Start: 03-30-2025 End: 03-30-2025 Patient encounter procedure [facility] Start: 03-18-2025 Screening for malignant neoplasm of breast Mammogram [facility] Start: 02-20-2025 Hemoglobin A1c measurement Diabetes: Hemoglobin A1C [facility] Start: 12-30-2024 Urine screening for protein Diabetes: Urine Protein Screening [facility] Start: 11-23-2024 End: 11-23-2024 Patient encounter procedure 11/23/2024 1:00 PM EDT Office Visit [facility] [address] [place] [address] Ameena Vera NP [address] [place] [address] [facility] Start: 11-18-2024 Hemoglobin A1c measurement Diabetes: Hemoglobin A1C [facility] Start: 11-02-2024 End: 11-02-2025 25-hydroxyvitamin D3 [Mass/volume] in Serum or Plasma Vitamin D 25 hydroxy Total Lab Routine Low serum parathyroid hormone (PTH) Hypercalcemia Vitamin D deficiency Hypomagnesemia Expected: 11/02/2024 (Approximate), Expires: 11/02/2025 [facility] Comment on above: Expected: 11/02/2024 (Approximate), Expi res: 11/02/2025 Start: 11-02-2024 End: 11-02-2025 Magnesium [Mass/volume] in Serum or Plasma Magnesium Lab Routine Low serum parathyroid hormone (PTH) Hypercalcemia Vitamin D deficiency Hypomagnesemia Expected: 11/02/2024 (Approximate), Expires: 11/02/2025 [facility] Work Phone: Comment on above: Expected: 11/02/2024 (Approximate), Expi res: 11/02/2025 Start: 11-02-2024 End: 11-02-2025 Parathyrin.intact and Calcium panel - Serum or Plasma PTH, intact and calcium Lab Routine Low serum parathyroid hormone (PTH) Hypercalcemia Vitamin D deficiency Hypomagnesemia Expected: 11/02/2024 (Approximate), Expires: 11/02/2025 [facility] Comment on above: Expected: 11/02/2024 (Approximate), Expi res: 11/02/2025 Start: 11-02-2024 End: 11-02-2025 Renal function panel Renal function panel Lab Routine Low serum parathyroid hormone (PTH) Hypercalcemia Vitamin D deficiency Hypomagnesemia Expected: 11/02/2024 (Approximate), Expires: 11/02/2025 [facility] Comment on above: Expected: 11/02/2024 (Approximate), Expi res: 11/02/2025 Start: 11-02-2024 End: 11-02-2024 Patient encounter procedure [facility] Comment on above: Arrived Start: 10-26-2024 End: 10-26-2024 Patient encounter procedure 10/26/2024 1:20 PM EDT Office Visit [facility] [address] [place] [phone] Za Wilkerson NP [address] [place] [address] [facility] Start: 10-19-2024 End: 10-19-2024 Patient encounter procedure 10/19/2024 11:30 AM EDT Office Visit [facility] [address] [place] [address] Ameena Vera, RONALDO [address] [place] [address] [facility] Start: 10-12-[address] [facility] Start: 09-30-2024 End: 09-30-[address] [facility] Start: 09-27-2024 Hemoglobin A1c measurement Diabetes: Hemoglobin A1C [facility] Start: 08-30-2024 Screening for malignant neoplasm of cervix [facility] Start: 08-20-2024 End: 08-20-2024 Patient encounter procedure 08/20/2024 10:30 AM EDT Office Visit [facility] [address] [place] [address] Ameena Vera, RONALDO [address] [place] [phone] [facility] Start: 07-29-2024 End: 07-29-2025 25-hydroxyvitamin D3 [Mass/volume] in Serum or Plasma Vitamin D 25 hydroxy Total Lab Routine Low serum parathyroid hormone (PTH) Hypercalcemia Vitamin D deficiency Expected: 07/29/2024 (Approximate), Expires: 07/29/2025 [facility] Comment on above: Expected: 07/29/2024 (Approximate), Expi res: 07/29/2025 Start: 07-29-2024 End: 07-29-2025 Magnesium [Mass/volume] in Serum or Plasma Magnesium Lab Routine Low serum parathyroid hormone (PTH) Hypercalcemia Expected: 07/29/2024 (Approximate), Expires: 07/29/2025 [facility] Work Phone: Comment on above: Expected: 07/29/2024 (Approximate), Expi res: 07/29/2025 Start: 07-29-2024 End: 07-29-2025 Parathyrin.intact and Calcium panel - Serum or Plasma PTH, intact and calcium Lab Routine Low serum parathyroid hormone (PTH) Hypercalcemia Expected: 07/29/2024 (Approximate), Expires: 07/29/2025 [facility] Comment on above: Expected: 07/29/2024 (Approximate), Expi res: 07/29/2025 Start: 07-29-2024 End: 07-29-[address] [facility] Comment on above: Low serum parathyroid hormone (PTH) Start: 07-29-2024 End: 07-29-2025 Renal function panel Renal function panel Lab Routine Low serum parathyroid hormone (PTH) Hypercalcemia Expected: 07/29/2024 (Approximate), Expires: 07/29/2025 [facility] Comment on above: Expected: 07/29/2024 (Approximate), Expi res: 07/29/2025 Start: 07-26-2024 Urine screening for protein Diabetes: Urine Protein Screening [facility] Start: 07-03-2024 End: 06-03-2025 25-hydroxyvitamin D3 [Mass/volume] in Serum or Plasma Vitamin D 25 hydroxy Lab Routine Hypercalcemia Expected: 07/03/2024 (Approximate), Expires: 06/03/2025 [facility] Comment on above: Expected: 07/03/2024 (Approximate), Expi res: 06/03/2025 Start: 07-03-2024 End: 06-03-2025 Basic metabolic 1998 panel - Serum or Plasma Basic metabolic panel Lab Routine Hypercalcemia Low serum parathyroid hormone (PTH) Expected: 07/03/2024 (Approximate), Expires: 06/03/2025 [facility] Comment on above: Expected: 07/03/2024 (Approximate), Expi res: 06/03/2025 Start: 07-03-2024 End: 06-03-2025 Parathyrin.intact [Mass/volume] in Serum or Plasma PTH, intact Lab Routine Low serum parathyroid hormone (PTH) Expected: 07/03/2024 (Approximate), Expires: 06/03/2025 [facility] Work Phone: Comment on above: Expected: 07/03/2024 (Approximate), Expi res: 06/03/2025 Start: 06-25-2024 End: 06-25-2024 Patient encounter procedure [facility] Start: 05-22-2024 End: 05-22-2025 Parathyrin.intact [Mass/volume] in Serum or Plasma PTH, intact Lab Routine Hypercalcemia Expected: 05/22/2024 (Approximate), Expires: 05/22/2025 [facility] Work Phone: Comment on above: Expected: 05/22/2024 (Approximate), Expi res: 05/22/2025 Start: 05-19-2024 End: 05-19-2025 25-hydroxyvitamin D3 [Mass/volume] in Serum or Plasma Vitamin D 25 hydroxy Lab Routine Hypercalcemia Expected: 05/19/2024 (Approximate), Expires: 05/19/2025 [facility] Comment on above: Expected: 05/19/2024 (Approximate), Expi res: 05/19/2025 Start: 05-19-2024 End: 05-19-2025 CBC W Auto Differential panel - Blood CBC and differential Lab Routine JANETT (obstructive sleep apnea) Cigarette nicotine dependence without complication Expected: 05/19/2024 (Approximate), Expires: 05/19/2025 [facility] Comment on above: Expected: 05/19/2024 (Approximate), Expi res: 05/19/2025 Start: 05-19-2024 End: 05-19-2025 Comprehensive metabolic 2000 panel - Serum or Plasma Comprehensive metabolic panel Lab Routine Other hyperlipidemia Bilateral lower extremity edema Type 2 diabetes mellitus with diabetic microalbuminuria, without long-term current use of insulin ([facility]) Hypercalcemia Essential hypertension Expected: 05/19/2024 (Approximate), Expires: 05/19/2025 [facility] Comment on above: Expected: 05/19/2024 (Approximate), Expi res: 05/19/2025 Start: 05-19-2024 End: 05-19-2025 Lipid 1996 panel - Serum or Plasma Lipid panel Lab Routine Other hyperlipidemia Expected: 05/19/2024 (Approximate), Expires: 05/19/2025 [facility] Work Phone: Comment on above: Expected: 05/19/2024 (Approximate), Expi res: 05/19/2025 Start: 05-19-2024 End: 05-19-2025 Microalbumin/Creatinine panel in random Urine Microalbumin / creatinine, urine ratio Lab Routine Type 2 diabetes mellitus with diabetic microalbuminuria, without long-term current use of insulin ([facility]) Essential hypertension Expected: 05/19/2024 (Approximate), Expires: 05/19/2025 [facility] Comment on above: Expected: 05/19/2024 (Approximate), Expi res: 05/19/2025 Start: 05-19-2024 End: 05-19-2025 Parathyrin.intact [Mass/volume] in Serum or Plasma PTH, intact Lab Routine Hypercalcemia Expected: 05/19/2024 (Approximate), Expires: 05/19/2025 [facility] Comment on above: Expected: 05/19/2024 (Approximate), Expi res: 05/19/2025 Start: 05-19-2024 End: 05-19-2025 Urate [Mass/volume] in Serum or Plasma Uric acid Lab Routine Elevated blood uric acid level Expected: 05/19/2024 (Approximate), Expires: 05/19/2025 [facility] Comment on above: Expected: 05/19/2024 (Approximate), Expi res: 05/19/2025 Start: 05-19-2024 End: 05-19-2025 Urinalysis complete panel - Urine Urinalysis with reflex microscopic (clean catch) Lab Routine Type 2 diabetes mellitus with diabetic microalbuminuria, without long-term current use of insulin ([facility]) Cigarette nicotine dependence without complication Essential hypertension Elevated blood uric acid level Expected: 05/19/2024 (Approximate), Expires: 05/19/2025 [facility] Comment on above: Expected: 05/19/2024 (Approximate), Expi res: 05/19/2025 Start: 05-19-2024 End: 05-19-2025 XR Knee - right 3 Views XR knee 3 views right Imaging Routine Acute pain of right knee Expected: 05/19/2024 (Approximate), Expires: 05/19/2025 [facility] Comment on above: Expected: 05/19/2024 (Approximate), Expi res: 05/19/2025 Start: 05-19-2024 End: 05-19-2024 Patient encounter procedure 05/19/2024 11:00 AM EDT Office Visit [facility] [address] [place] [phone] Ameena Vera NP [address] [place] [address] [facility] Start: 04-21-2024 End: 04-21-2024 Patient encounter procedure 04/21/2024 1:00 PM EDT Office Visit [facility] [address] [place] [phone] Za Wilkerson NP [address] [place] [address] [facility] Start: 03-30-2024 End: 03-30-2024 Patient encounter procedure 03/30/2024 11:05 AM EST Office Visit [facility] [address] [place] [address] Alicia Monroy MD [address] [place] [address] [facility] Start: 03-26-2024 End: 03-26-2024 Patient encounter procedure 03/26/2024 2:00 PM EST Office Visit [facility] [address] [place] [phone] Sonam Drake NP [address] [place] [phone] [facility] Start: 03-24-2024 End: 03-24-2024 Patient encounter procedure [facility] [address] Start: 03-20-2024 Screening for malignant neoplasm of breast Mammogram [facility] Start: 02-27-2024 End: 02-27-2024 Patient encounter procedure 02/27/2024 11:35 AM EST Office Visit [facility] [address] [place] [phone] Alicia Monroy MD [address] [place] [address] [facility] Start: 02-25-2024 End: 02-25-2024 Patient encounter procedure 02/25/2024 3:30 PM EST Office Visit [facility] [address] [place] [address] Sonam Drake, RONALDO [address] [place] [address] [facility] Start: 02-21-2024 Medicare Annual Wellness (AWV) Medicare Annual Wellness (AWV) [facility] Start: 02-12-2024 Glaucoma screening Diabetes: Retinopathy Screening [facility] Start: 01-25-2024 Hemoglobin A1c measurement Diabetes: Hemoglobin A1C [facility] Start: 12-31-2023 End: 12-30-2024 Polysomnography [facility] Routine JANETT (obstructive sleep apnea) Expected: 12/31/2023 (Approximate), Expires: 12/30/2024 [facility] Work Phone: Comment on above: Expected: 12/31/2023 (Approximate), Expi res: 12/30/2024 Start: 12-31-2023 End: 12-31-2023 Patient encounter procedure 12/31/2023 10:00 AM EST Office Visit [facility] [address] [place] [phone] Sivan Banda, DO [address] [place] [address] [facility] [address] Start: 12-30-2023 End: 12-29-2024 CBC W Auto Differential panel - Blood CBC and differential Lab Routine Type 2 diabetes mellitus with diabetic microalbuminuria, without long-term current use of insulin ([facility]) Essential hypertension Expected: 12/30/2023 (Approximate), Expires: 12/29/2024 [facility] Comment on above: Expected: 12/30/2023 (Approximate), Expi res: 12/29/2024 Start: 12-30-2023 End: 12-29-2024 Comprehensive metabolic 2000 panel - Serum or Plasma Comprehensive metabolic panel Lab Routine Type 2 diabetes mellitus with diabetic microalbuminuria, without long-term current use of insulin ([facility]) Essential hypertension Expected: 12/30/2023 (Approximate), Expires: 12/29/2024 [facility] Comment on above: Expected: 12/30/2023 (Approximate), Expi res: 12/29/2024 Start: 12-30-2023 End: 12-29-2024 Hemoglobin A1c/Hemoglobin.total in Blood Hemoglobin A1c Lab Routine Type 2 diabetes mellitus with diabetic microalbuminuria, without long-term current use of insulin ([facility]) Expected: 12/30/2023 (Approximate), Expires: 12/29/2024 [facility] Comment on above: Expected: 12/30/2023 (Approximate), Expi res: 12/29/2024 Start: 12-30-2023 End: 12-30-2023 Patient encounter procedure 12/30/2023 10:30 AM EST Office Visit [facility] [address] [place] [phone] Sonam Drake NP [address] [place] [address] [facility] Start: 11-04-2023 End: 11-04-2023 Patient encounter procedure 11/04/2023 2:30 PM EDT Office Visit [facility] [address] [address] [place] [address] Sivan Banda DO [address] [place], [place] [id number] [facility] [address] Start: 10-13-2023 Influenza vaccination Influenza Vaccine (#1) [facility] Start: 08-11-2023 Influenza vaccination Influenza Vaccine (#1) [facility] Comment on above: Postponed from 10/12/2022 (Patient Refus ed) Start: 05-02-2023 End: 05-02-2023 Patient encounter procedure 05/02/2023 2:00 PM EDT [facility] [address] [place] [address] Shaikh Connelly MD [address] [place] [address] [facility] Start: 02-17-2023 Hemoglobin A1c measurement Diabetes: Hemoglobin A1C [facility] Start: 09-04-2022 End: 09-04-2022 Patient encounter procedure 09/04/2022 Office Visit Obstetrics and Gynecology Radha Barclay, CUT OUT MACHINE OPERATOR - CNM [address] [place] [address] Dr [address] [place] [address] [facility] Start: 10-12-2021 Influenza vaccination Flu vaccine (#1) [facility] Start: 10-21-2013 Screening for malignant neoplasm of breast Breast cancer screen [facility] Start: 10-21-2013 Shingles vaccine (1 of 2) Shingles vaccine (1 of 2) [facility] Start: 10-21-2008 Screening for malignant neoplasm of colon [facility] Start: 2003 Lipid panel Lipids [facility] Start: 10-21-1998 Diabetes screen Diabetes screen [facility] Start: 10-21-1993 Screening for malignant neoplasm of cervix [facility] Start: 10-21-1982 DTaP/Tdap/Td vaccine (1 - Tdap) DTaP/Tdap/Td vaccine (1 - Tdap) [facility] Start: 10-21-1982 Urine screening for protein Diabetes: Urine Protein Screening [facility] Start: 10-21-1981 Hepatitis C screening Hepatitis C screen [facility] Start: 10-21-1978 HIV screening HIV screen [facility] Start: 1975 Depression Screen Depression Screen [facility] Start: 03-10-1965 COVID-19 Vaccine (#1) COVID-19 Vaccine (#1) [facility] Start: 1963 Screening for malignant neoplasm of colon [facility] End: 08-30-2021 Cytopathology procedure, preparation of smear, genital source [facility] Routine Routine cervical smear 1 Occurrences starting 08/30/2021 until 08/30/2021 [facility] Work Phone: Comment on above: 1 Occurrences starting 08/30/2021 until 08/30/2021 Microalbumin/Creatin ine panel in random Urine Microalbumin / creatinine urine ratio Lab Routine Type 2 diabetes mellitus with diabetic microalbuminuria, without long-term current use of insulin ([facility]) Essential hypertension Ordered: 12/30/2023 [facility] Work Phone: Comment on above: Ordered: 12/30/2023 Patient Education Low back pain in adults [facility] Work Phone: XR Wrist - left GE 3 Views [facility] Immunizations Immunization Date Immunization Notes Care Provider Tima garcia 01-14-2017 influenza, injectabl e, quadrivalent, preservative free [facility] 01-14-2017 influenza virus vaccine, unspecified formulation Sonam Drake NP Work Phone: [facility] Payers Date Payer Category Payer Self-pay [id number] 2022 Private Health Insurance [id number] 2022 Unknown [id number] [id number] 2022 Unknown 2022 2012 Medicare [id number]. 1.13.693.2.7.3.090464.315 1963 Unknown [id number] 2.16.8 40.1.730999.3.579.2.173 1963 Unknown [id number] 2.16.84 0.1.679369.3.579.2.593 1963 Unknown [id number] 2.16.84 0.1.233643.3.579.2.593 1963 Unknown [id number] 2.16.84 0.1.278684.3.579.2.593 1963 Unknown [id number] 2.16.84 0.1.843664.3.579.2.593 1963 Unknown [id number] 2.16.84 0.1.867796.3.579.2.593 1963 Unknown [id number] 2.16.84 0.1.277737.3.579.2.593 1963 Unknown [id number] 2.16.84 0.1.015600.3.579.2.593 1963 Unknown [id number] 2.16.84 0.1.612753.3.579.2.593 1963 Unknown [id number] 2.16.84 0.1.859328.3.579.2.593 1963 Unknown [id number] 2.16.84 0.1.030437.3.579.2.593 1963 Unknown [id number] 2.16.84 0.1.146333.3.579.2.593 1963 Unknown [id number] 2.16.84 0.1.726262.3.579.2.593 1963 Unknown [id number] 2.16.84 0.1.077054.3.579.2.593 1963 Unknown [id number] 2.16.84 0.1.466790.3.579.2.593 1963 Unknown [id number] 2.16.84 0.1.268628.3.579.2.593 1963 Unknown [id number] 2.16.84 0.1.677879.3.579.2.593 1963 Unknown [id number] 2.16. 840.1.077236.3.579.2.196 1963 Unknown [id number] 2.16. 840.1.393443.3.579.2.196 1963 Unknown [id number] 2.16.8 40.1.331722.3.579.2.1259 1963 Unknown [id number] 2.16.8 40.1.150914.3.579.2.1258 1963 Unknown [id number] 2.16.8 40.1.091156.3.579.2.1258 1963 Unknown [id number] 2.16.84 0.1.610718.3.579.2.9 1963 Unknown [id number] 2.16.84 0.1.358760.3.579.2.9 1963 Unknown [id number] 2.16.84 0.1.255939.3.579.2.1259 1963 Unknown [id number] 2.16.84 0.1.228207.3.579.2.9 1963 Unknown [id number] 2.16.84 0.1.100983.3.579.2.9 1963 Unknown [id number] 2.16.84 0.1.018564.3.579.2.9 1963 Unknown [id number] 2.16.84 0.1.266338.3.579.2.1259 1959 Medicare [id number] 1.2.840.262530.1.13.239.2.7.3.229859.315 1959 Unknown [id number] 1.2.840.403852.1.13.239.2.7.3.265363.315 1959 Unknown [id number] 2.16.8 40.1.241127.19 Medicare Medicare [id number] Unknown [id number] 2.16.8 40.1.942951.3.579.2.531 Social History Date Type Detail Facility Start: 08-30-2021 End: 04-21-2024 Tobacco smoking status WIIS Smokes tobacco daily [facility] Phone: History of tobacco use Cigarette Smoker B ON [employer] Phone: Start: 08-30-2021 End: 04-21-2024 Tobacco use and exposure Smokeless tobacco non-user [facility] Phone: Start: 08-30-2021 Alcohol intake Current drinke r of alcohol (finding) [facility] Phone: Start: 08-30-2021 History SDOH Alcohol Comment occasional [facility] Phone: Start: 1965 Sex Assigned At Not on file B ON [employer] Phone: Start: 08-20-2021 End: 08-30-2021 Exposure to SARS-CoV-2 (event) Not sure [employer] Start: 02-25-2023 End: 10-02-2023 Sex Assigned At [facility] Start: 01-29-2023 End: 05-20-2024 Tobacco smoking status WIIS Ex-smoker [facility] History of tobacco use Current smoker [facility] Start: 01-29-2023 End: 10-02-2023 Cigarettes smoked current (pack per day) - Reported 0.5 [facility] Start: 02-25-2023 End: 08-20-2024 Alcohol intake Lifetime non-drinker (finding) [facility] Start: 1965 Sex Assigned At Female F [facility] History of tobacco use Passive smoker [facility] How often do you nee d to have someone help you when you read instructions, pamphlets, or other written material from your doctor or pharmacy [SILS] Patient declines to respond [facility] Are you now , , , [...] [facility] Start: 05-29-2024 Sex Female (finding) [facility] Medical Equipment Procedure Code Equipment Code Equipment Origin al Text Equipment Identifier Dates [id number] Start: 06-08-2021 End: 04-21-2024 Clinical Notes 06-20-2021 to 11-02-2024 Kasi Bennett MD - 11/02/2024 10:10 AM EDT Note Date & Type Note Facility 11-02-2024 [...] MORE THAN 3 TABLETS DAILY Continuous Glucose Wildlife Refuge Specialist (Dexcom G7 Wildlife Refuge Specialist) device 1 each, Does not apply, Continuous [...] months (around 05/02/2025). documented in this encounter [facility] 10-19-2024 Evaluation note Diagnosis Onset Date Resolution Back spasm acute October 19, 2024 11:32am Diabetic polyneuropathy acute S eptember 2024 11:32am Essential hypertension acute Se ptember 2024 11:32am Lumbar back pain acute Septembe r 2024 11:32am Morbid obesity due to excess calories acute October 19, 025 11:32am Chronic gout of multiple sites acute November 23 1:05pm Essential hypertension acute Oc tober 2024 1:05pm Mixed hyperlipidemia acute Octo 2024 1:05pm Morbid obesity due to excess calories acute November 23 1:05pm Nicotine dependence with current use acute November 23 1:05pm Type 2 diabetes mellitus with diabetic microalbuminuria, without long-term acute November 23, 2024 1:05pm Wrist pain, left acute November 23, 2024 1:05pm [facility] Work Phone: 1(837) 971-814507-10-2025 History of Present illness Narrative* Ameena Vera NP - 08/20/2024 11:22 AM EDTAssociated Problem(s): Bilateral lower extremity edema Refilled lasix She could try 1/2 pill every other day for swelling Heart normal, chest clear * Ameena Vera NP - 08/20/2024 10:30 AM EDT Images from the original note were not included. Karina De Oliveira is a 58 y.o. female presents with chief complaint of Diabetes HPI: CGM: 3 day 124, 96% TIR, 4% high 7 day 129, 6.4%, 94% TIR, 5% high 14 day 125, 6.3%, 94% TIR , 4% high 30 spm790, 6.3%m 93% TIR, and 5% high, 1 % very high 90 day 133, 6.5%, 87% TIR, 9%high, 2% very high Diabetes She presents for her follow-up diabetic visit. She has type 2 diabetes mellitus. Her disease coursehas been stable. There are no hypoglycemic associated symptoms. Pertinent negatives for hypoglycemia include no dizziness, headaches, nervousness/anxiousness, seizures or tremors. Associated symptomsinclude polyuria. Pertinent negatives for diabetes include no [...] MORE THAN 3 TABLETS DAILY Continuous Glucose Wildlife Refuge Specialist (Dexcom G7 Wildlife Refuge Specialist) device 1 each, Does not apply, Continuous [...] microalbuminuria, without long-term current use of insulin ([facility]) - Primary Check blood sugars daily, notify [...] of the risks of continued smoking: stroke, RI, all forms of cancer, lung disease, and . Options for quitting smoking include: cold turkey, hypnosis, acupuncture, nicotine replacement meds(gum, lozenges, and patches), Buproprion, and Varenicline. At this time pt is encouraged to evaluate their goals for wanting to quit smoking, and reach out toprovider when ready to start this process Chronic gout of multiple sites Relevant Medications allopurinol (Zyloprim) 300 MG tablet Other Visit Diagnoses Gastroesophageal reflux disease without esophagitis Relevant Medications famotidine (Pepcid) 20 MG tablet * REMY VALVERDE - 08/20/2024 10:30 AM EDT Possible mosquito bites on back of neck she would like to check out 02 range 90-93% 78/54 * Ameena Vera NP - 08/20/2024 6:27 AM EDTAssociated Problem(s): Cigarette nicotine dependence without complication The patient has been advised of the risks of continued smoking: stroke, RI, all forms of cancer, lung disease, and . Options for quitting smoking include: cold turkey, hypnosis, acupuncture, nicotine replacement meds(gum, lozenges, and patches), Buproprion, and Varenicline. At this time pt is encouraged to evaluate their goals for wanting to quit smoking, and reach out toprovider when ready to start this process * Ameena Vera NP - 08/20/2024 6:27 AM EDTAssociated Problem(s): Morbid (severe) obesity due to excess calories (E66.01) Discussed with patient their BMI (actual, verses recommended). We have also discussed lifestyle modifications: attempts to perform physical activity as chronic conditions allow, also to monitor dietary intake: increasing protein/fruits/veggies and lowering carb intake (unless contraindicated). Limit sodas, juices, and sugary drinks. Is taking ozempic for DM * Ameena Vera NP - 08/20/2024 6:26 AM EDTAssociated Problem(s): Type 2 diabetes mellitus [...] ozempic, statin A1c: 6.4% 08/20/24 6.7% 05/19/24 * Ameena Vera NP - 08/20/2024 6:26 AM EDTAssociated Problem(s): Essential hypertension No current meds, insurance suggests MAUREEN/ARB, no d/t heart DASH diet Limit caffeine Contact office if chest pain, pressure, dizziness, shortness of breath, swelling legs Current meds: none documented in this encounterSt. [facility] [id number] Telephone encounter Note* Telephone Encounter - Ameena Vera NP - 08/20/2024 11:19 AM EDT Please call [facility] [place] for copy of diabetic eye exam [place] [facility] [id number] Miscellaneous Notes* Telephone Encounter - Ameena Vera NP - 08/20/2024 11:19 AM EDT Please call [facility] [place] for copy of diabetic eye exam [place] documented in this encounterSt. [facility] Medicine [id number] Instructions* Patient Instructions* Ameena Vera NP - 08/20/2024 10:30 AM EDT Furosemide every other day 1/2 tablet documented in this encounterSt. [facility] Behavior[facility] Medicine I[id number] History of Present illness Narrative* Kasi Bennett MD - 07/29/2024 2:00 PM EDT Karina De Oliveira is a 58 y.o. [...] MORE THAN 3 TABLETS DAILY Continuous Glucose Wildlife Refuge Specialist (Dexcom G7 Wildlife Refuge Specialist) device 1 each, Does not apply, Continuous [...] is advised to continue with vitamin D 1000units daily. All labs will be repeated in 2 months before the next visit, including calcium, vitamin D, PTH, and magnesium. Recommendations will be made based on the lab results. 2. Osteoporosis. She has been on Fosamax for almost 5 years and has experienced fractures in her feet and back. Follow up in about 2 months (around 09/28/2024). documented in this encounterSt. [facility] Medicine [id number] Evaluation note* Diagnosis Onset Date Resolution Status Admit Date Primary osteoarthritis of ri ght knee acute May 28, 2024 12:55pm [facility] Work Phone: 1(845) 885-963204-11-2025 History of Present illness Narrative* Ameena Vera NP - 05/22/2024 7:25 AM EDT par documented in this encounterSt. [facility] Medicine [id number] History of Present illness Narrative* Ameena Vera [...] orthopedic [place] in the [place] that knee however she does not [...] orthopedic surgeon in the [place] that knee however she does not [...] MORE THAN 3 TABLETS DAILY Continuous Glucose Wildlife Refuge Specialist (Dex[employer]é G7 Wildlife Refuge Specialist) device 1 each, Does not apply, Continuous [...] microalbuminuria, without long-term current use of insulin ([facility]) Check blood sugars daily, notify if <70 [...] aura and without status migrainosus, not intractable ([facility]) Current meds: maxalt, depakote Other hyperlipidemia On [...] of the risks of continued smoking: stroke, RI, all forms of cancer, lung disease, and [...] of the risks of continued smoking: stroke, RI, all forms of cancer, lung disease, and [...] aura and without status migrainosus, not intractable ([facility]) Current meds: maxalt, depakote * Ameena Vera NP - 05/19/2024 6:51 AM EDTAssociated Problem(s): Type 2 diabetes mellitus with diabetic microalbuminuria, without long-term current use of insulin ([facility]) Check blood sugars daily, notify if <70 [...] that supplies your machine and tubing/filters etc: [facility] Doctor that manages your JANETT: Dr Banda documented in this [facility]04-08-2025 Instructions* Patient Instructions* Ameena Vera NP - 05/19/2024 11:00 AM EDT Fasting labs Get xray knee Referral to Dr Darren Orona documented in this [facility]02-17-2025 Telephone encounter Note* Telephone Encounter - Jolly Castaneda MA - 03/30/2024 11:44 AM EST Pt's sensor fell off, and she needs them refilled please [facility] [id number] Miscellaneous Notes* Telephone Encounter - Jolly Castaneda MA - 03/30/2024 11:44 AM EST Pt's sensor fell off, and she needs them refilled please documented in this [facility]02-17-2025 History of Present illness Narrative* Alicia [...] Examined Right arm Examined Patient wearing nail angolan, Denies dark streaks under finger nails, Denies [...] 1 year skin check documented in this encounterSt. [facility] Medicine [id number] History of Present illness Narrative* Sonam Drake [...] microalbuminuria, without long-term current use of insulin ([facility]) - Primary Currently taking Metformin Bid and [...] (Hb A1C) docked device (Completed) Other hyperlipidemia ([facility]) Crestor 20mg Denies myalgias Continue current regimen. [...] use of insulin (CMS/HCC) documented in this encounterSt. [facility] Behavior[facility] Medicine [id number] Instructions* Patient Instructions* Sonam Drake NP - [...] carbohydrates, and simple sugars. documented in this encounterSt. [facility] Behavior[facility] Medicine [id number] History of Present illness Narrative* Sonam Drake [...] microalbuminuria, without long-term current use of insulin ([facility]) Relevant Medications metFORMIN (Glucophage) 500 MG tablet Continuous Glucose Wildlife Refuge Specialist (Dexcom G7 Wildlife Refuge Specialist) device Continuous Glucose Sensor (Dexcom G7 Sensor) [...] polyneuropathy associated with type 2 diabetes mellitus ([facility]) Relevant Medications pregabalin (Lyrica) 75 MG capsule documented in this encounterSt. [facility] Medicine [id number] Instructions* Patient Instructions* Sonam Drake NP - [...] 1500 calories per day. documented in this [facility]12-19-2024 Telephone encounter Note* Telephone Encounter - Jolly Castaneda MA - 01/30/2024 10:38 AM EST GIOVANNA:12/30/2023 NOV:03/26/2024 [facility] [id number] Miscellaneous Notes* Telephone Encounter - Jolly Castaneda MA - 01/30/2024 10:38 AM EST GIOVANNA:12/30/2023 NOV:03/26/2024 documented in this [facility]12-03-2024 Telephone encounter Note* Telephone Encounter - Jolly Castaneda MA - 01/14/2024 8:34 AM EST GIOVANNA:12/30/2023 NOV:03/26/[address]23 [facility] [id number] Miscellaneous Notes* Telephone Encounter - Jolly Castaneda MA - 01/14/2024 8:34 AM EST GIOVANNA:12/30/2023 NOV:03/26/2023 documented in this encounterSt. [facility] Medicine I[id number] History of Present illness Narrative* Sivan Banda DO - 12/31/2023 10:00 AM EST Images from the original note were not included. No chief complaint on file. Subjective SLEEP CONSULT REFERRAL: Snoring, concern for JANETT, needing sleep study - labs @ [facility]; referral received from Sonam Drake CNP. [...] mellitus, without long-term current use of insulin (CMS/[facility]) Past Surgical History: Procedure Laterality Date BACK [...] was counseled on the risks of stroke, RI, and sudden with JANETT, along with the [...] to clinic: 2 months documented in this [facility]11-18-2024 History of Present illness Narrative* Sonam Drake [...] ALBUMIN GLOBULIN RATIO 0.8 Resulting Agency [facility] DMII: Metformin Bid and Ozempic Most [...] microalbuminuria, without long-term current use of insulin ([facility]) - Primary Currently taking Metformin Bid and [...] JANETT. First appointment tomorrow. documented in this [facility]11-18-2024 Instructions* Patient Instructions* Sonam Drake NP - 12/30/2023 10:30 AM EST FASTING labs ordered. Nothing to eat or drink for 12 hours prior to blood draw. Water and black coffee ok. Call if you need anything! documented in this encounterSt. [facility] [id number] Telephone encounter Note* Telephone Encounter - Jolly Castaneda MA - 12/17/2023 3:39 PM EST GIOVANNA:10/03/2023 NOV:12/30/2023 [facility] [id number] Miscellaneous Notes* Telephone Encounter - Jolly Castaneda MA - 12/17/2023 3:39 PM EST GIOVANNA:10/03/2023 NOV:12/30/2023 documented in this encounterSt. [facility] [id number] History of Present illness Narrative* Sonam Drake NP - 10/03/2023 10:57 AM EDTAssociated Problem(s): Snoring Screening for JANETT- Referral sent to [facility] [place] * Sonam Drake NP - 10/03/2023 10:35 [...] ALBUMIN GLOBULIN RATIO 0.8 Resulting Agency H [facility] DMII: Metformin Bid and Ozempic Most recent [...] microalbuminuria, without long-term current use of insulin ([facility]) Metformin Bid and Ozempic Most recent labs: [...] for JANETT- Referral sent to [facility] [place] Other Visit Diagnoses Type 2 diabetes mellitus without complication, without long-term current use of insulin (CMS/HCC) Relevant Medications semaglutide (Ozempic, 1 MG/DOSE,) 4 MG/3ML solution pen-injector Diabetic polyneuropathy associated with type 2 diabetes mellitus (CMS/HCC) Relevant Medications pregabalin (Lyrica) 75 MG capsule documented in this encounterSt. [facility] [id number] Instructions* Patient Instructions* Sonam Drake NP - [...] if you need anything! documented in this [facility]02-06-2024 Evaluation note* Encounter Date Diagnosis Assessment [...] Left hand pain (ICD- 10 - M79.642) [facility] Other 12-13-2023 Evaluation note* Encounter Date Diagnosis [...] noted. Patient will f/u in 4 weeks. [facility] Other 12-08-2023 Evaluation note* Encounter Date Diagnosis [...] x-ray that was performed at [facility] which revealed degenerative changes in the hand as well as a remote avulsion fracture of the thumb. Patient states her family doctor is treating her for gout in her hand. Jan, History of gout (ICD-10 - Z87.39) Jan, Other Gout material w as printed [facility] Other 08-09-2023 Evaluation note* Encounter Date Diagnosis Assessment Notes Treatment Notes Treatment Clinical Notes Sep, Right wrist pain (ICD-10 - M25.531) [facility] Other 04-27-2023 NoteCONSULTATION CONSULTATION DATE: 06/07/2022 TO: [...] our patients to inform us about any ppva-biw-mscvkrr medications or herbal remedies/nutritional supplements/alternative remedies. 2. [...] with their primary care provider.[facility] [id number] Evaluation note * Encounter Date Diagnosis Assessment [...] understanding and is agreeable to treatment plan. [facility] Other 01-26-2023 NoteCONSULTATION PROCEDURE DATE: 03/08/2022 PREOPERATIVE [...] followed up in the clinic.[facility] [id number] NotePROCEDURE: XR KNEE LT 4V or > [...] Electronically authenticated by: PATTIE SALTER Date: 2022-02-16 11:29[facility]12-30-2022 NoteCONSULTATION CONSULTATION DATE: 02/09/2022 HISTORY OF [...] Patient agrees with this plan.[facility] [id number] NotePROCEDURE: XR WRIST RT MIN 3 V COMPARISON: None. HISTORY: Injury of right wrist FINDINGS: BONES:No acute fracture or dislocation. Corticated bone fragment identified along the first carpometacarpal joint [degenerative in nature SOFT TISSUES:Moderate diffuse soft tissue swelling EFFUSION:None visible. OTHER: Negative. IMPRESSION: Soft tissue swelling, no acute fracture Electronically authenticated by: RYAN GOLDMAN Date: 2021-11-16 18:59[facility] HospitalMetsqych30-45-1583 NoteCONSULTATION CONSULTATION DATE: 11/01/2021 HISTORY OF PRESENT [...] Patient agrees with this plan.[facility] [id number] NoteCONSULTATION PROCEDURE DATE: 11/01/2021 PRE AND POSTOPERATIVE [...] followed up in the clinic.[facility] [id number] NoteCONSULTATION PROCEDURE DATE: 08/09/2021 PREOPERATIVE DIAGNOSIS: Bilateral [...] CRYS PIERCE . 08/10/2021 13:37:00The [facility] [id number] NoteCONSULTATION CONSULTATION DATE: 07/19/2021 HISTORY OF PRESENT [...] Approved by: CRYS PIERCE . 07/20/2021 10:33:00[facility] [id number] NotePROCEDURE: XR FOOT RT MIN 3 VIEWS [...] Electronically authenticated by: PATTIE SALTER Date: 2021-07-05 11:11[facility]05-10-2022 NoteCONSULTATION CONSULTATION DATE: 06/20/2021 CHIEF COMPLAINT: [...] Approved by: DR RICARDO HOLM . 06/27/2021 10:40:00[facility] Routine cervical smear Screening for malignant neoplasm of the cervix documented [facility]MySite[facility] Work Phone: evaluation note* Diagnosis Diabetic polyneuropathy associated with type 2 diabetes mellitus (CMS/HCC)- Primary documented in this encounter [facility] HealthcareEvaluation noteNo assessment information availableAden[facility] Work Phone: Evaluation note* Diagnosis [...] diabetes mellitus (CMS/HCC) documented in this encounter [facility] HealthcareEvaluation note* Diagnosis Encounter for screening [...] chronicity, unspecified site documented in this encounter [facility] HealthcareEvaluation note* Diagnosis Encounter for screening [...] microalbuminuria, without long-term current use of insulin ([facility])- Primary Other hyperlipidemia (CMS/HCC) Essential hypertension Unspecified essential hypertension Bilateral lower extremity edema Lumbar back pain- Primary [facility] discharge follow-up Other follow-up examination Essential hypertension- Primary Unspecified essential hypertension Type 2 diabetes mellitus with diabetic microalbuminuria, without long-term current use of insulin ([facility]) Morbid (severe) obesity due to excess calories (E66.01) Other hyperlipidemia ([facility]/HCC) Lumbar back pain Lumbago Type 2 diabetes mellitus without complication, without long-term current use of insulin ([facility]) Diabetic polyneuropathy associated with type 2 diabetes mellitus ([facility]) Mixed urge and stress incontinence Mixed incontinence urge and stress (male)(female) Snoring Other dyspnea and respiratory abnormality Encounter for long-term (current) use of high-risk medication Encounter for long-term (current) use of other medications Type 2 diabetes mellitus with diabetic microalbuminuria, without long-term current use of insulin ([facility])- Primary Essential hypertension Unspecified essential hypertension Other hyperlipidemia ([facility]) Snoring Other dyspnea and respiratory abnormality Mixed urge and stress incontinence Mixed incontinence urge and stress (male)(female) documented in this encounter [facility] HealthcareEvaluation note* Diagnosis Encounter for screening mammogram for breast cancer- Primary Encounter for screening for malignant neoplasm of colon Type 2 diabetes mellitus without complication, without long-term current use of insulin ([facility]) Upper respiratory tract infection, unspecified type URTI (acute upper respiratory infection) Acute upper respiratory infections of unspecified site Migraine with aura and without status migrainosus, not intractable ([facility])- Primary Type 2 diabetes mellitus without complication, without long-term current use of insulin ([facility]/HCC) Morbid (severe) obesity due to excess calories (E66.01) Body mass index [BMI] 40.0-44.9, adult (Z68.41) Essential hypertension Unspecified essential hypertension Essential hypertension- Primary Unspecified essential hypertension Type 2 diabetes mellitus without complication, without long-term current use of insulin ([facility]) Back spasm Other symptoms referable to back Closed fracture of proximal end of left fibula with routine healing, unspecified fracture morphology, subsequent encounter Closed nondisplaced fracture of second metatarsal bone of left foot with routine healing, subsequent encounter Other hyperlipidemia ([facility]) Hyperuricemia Other abnormal blood chemistry Osteoporosis, unspecified osteoporosis type, unspecified pathological fracture presence ([facility]) Diabetic polyneuropathy associated with type 2 diabetes mellitus ([facility]) Gastroesophageal reflux disease without esophagitis Esophageal reflux Migraine with aura and without status migrainosus, not intractable ([facility]) Hospital discharge follow-up Other follow-up examination Type 2 diabetes mellitus with diabetic microalbuminuria, without long-term current use of insulin ([facility])- Primary Other hyperlipidemia ([facility]) Essential hypertension Unspecified essential hypertension Bilateral lower extremity edema Lumbar back pain- Primary [facility] discharge follow-up Other follow-up examination Essential hypertension- Primary Unspecified essential hypertension Type 2 diabetes mellitus with diabetic microalbuminuria, without long-term current use of insulin ([facility]) Morbid (severe) obesity due to excess calories (E66.01) Other hyperlipidemia ([facility]) Lumbar back pain Lumbago Type 2 diabetes mellitus without complication, without long-term current use of insulin ([facility]) Diabetic polyneuropathy associated with type 2 diabetes mellitus ([facility]) Mixed urge and stress incontinence Mixed incontinence urge and stress (male)(female) Snoring Other dyspnea and respiratory abnormality Encounter for long-term (current) use of high-risk medication Encounter for long-term (current) use of other medications Type 2 diabetes mellitus with diabetic microalbuminuria, without long-term current use of insulin ([facility])- Primary Essential hypertension Unspecified essential hypertension Other hyperlipidemia ([facility]) Snoring Other dyspnea and respiratory abnormality Mixed urge and stress incontinence Mixed incontinence urge and stress (male)(female) Lumbar back pain Lumbago documented in this encounter [facility] HealthcareEvaluation note* Diagnosis Essential hypertension- Primary Unspecified essential hypertension Type 2 diabetes mellitus with diabetic microalbuminuria, without long-term current use of insulin ([facility]) Morbid (severe) obesity due to excess calories (E66.01) Other hyperlipidemia ([facility]/HCC) Lumbar back pain Lumbago Type 2 diabetes mellitus without complication, without long-term current use of insulin (CMS/HCC) Diabetic polyneuropathy associated with type 2 diabetes mellitus (CMS/HCC) Mixed urge and stress incontinence Mixed incontinence urge and stress (male)(female) Snoring Other dyspnea and respiratory abnormality documented in this encounter [facility]Evaluation note* Diagnosis Gout, unspecified cause, unspecified chronicity, unspecified site documented in this encounter [facility] HealthcareEvaluation note* Diagnosis Diabetic polyneuropathy associated with type 2 diabetes mellitus (CMS/HCC) documented in this encounter [facility] HealthcareEvaluation note* Diagnosis Encounter for screening [...] with routine healing, subsequent encounter Other hyperlipidemia (CMS/[facility]) Hyperuricemia Other abnormal blood chemistry Osteoporosis, unspecified [...] of insulin (CMS/HCC) documented in this encounter [facility] HealthcareEvaluation note* Diagnosis Encounter for screening [...] Other hyperlipidemia (CMS/HCC) documented in this encounter [facility] HealthcareEvaluation note* Diagnosis Encounter for screening [...] complication, without long-term current use of insulin ([facility]) Back spasm Other symptoms referable to back Closed fracture of proximal end of left fibula with routine healing, unspecified fracture morphology, subsequent encounter Closed nondisplaced fracture of second metatarsal bone of left foot with routine healing, subsequent encounter Other hyperlipidemia ([facility]) Hyperuricemia Other abnormal blood chemistry Osteoporosis, unspecified osteoporosis type, unspecified pathological fracture presence (CMS/[facility]) Diabetic polyneuropathy associated with type 2 diabetes mellitus (CMS/[facility]) Gastroesophageal reflux disease without esophagitis Esophageal reflux Migraine with aura and without status migrainosus, not intractable ([facility]) Hospital discharge follow-up Other follow-up examination Type 2 diabetes mellitus with diabetic microalbuminuria, without long-term current use of insulin ([facility])- Primary Other hyperlipidemia (CMS/HCC) Essential hypertension Unspecified essential hypertension Bilateral lower extremity edema Lumbar back pain- Primary [facility] discharge follow-up Other follow-up examination Essential hypertension- Primary Unspecified essential hypertension Type 2 diabetes mellitus with diabetic microalbuminuria, without long-term current use of insulin ([facility]) Morbid (severe) obesity due to excess calories (E66.01) Other hyperlipidemia (CMS/HCC) Lumbar back pain Lumbago Type 2 diabetes mellitus without complication, without long-term current use of insulin ([facility]) Diabetic polyneuropathy associated with type 2 diabetes mellitus ([facility]) Mixed urge and stress incontinence Mixed incontinence urge and stress (male)(female) Snoring Other dyspnea and respiratory abnormality Encounter for long-term (current) use of high-risk medication Encounter for long-term (current) use of other medications Type 2 diabetes mellitus with diabetic microalbuminuria, without long-term current use of insulin ([facility])- Primary Essential hypertension Unspecified essential hypertension Other hyperlipidemia (CMS/HCC) Snoring Other dyspnea and respiratory abnormality Mixed urge and stress incontinence Mixed incontinence urge and stress (male)(female) Upper respiratory infection with cough and congestion- Primary Lumbar back pain Lumbago Migraine with aura and without status migrainosus, not intractable ([facility]) Type 2 diabetes mellitus with diabetic microalbuminuria, without long-term current use of insulin (CMS/HCC) Diabetic polyneuropathy associated with type 2 diabetes mellitus (CMS/HCC) Other hyperlipidemia (CMS/HCC) Osteoporosis, unspecified osteoporosis type, unspecified pathological fracture presence (CMS/HCC) documented in this encounter [facility]Evaluation [facility]* Diagnosis Encounter for screening [...] microalbuminuria, without long-term current use of insulin ([facility]/HCC) Diabetic polyneuropathy associated with type 2 diabetes mellitus (CMS/HCC) Other hyperlipidemia (CMS/HCC) Gastroesophageal reflux disease without esophagitis Esophageal reflux documented in this encounter [facility]Evaluation note* Diagnosis Encounter for screening [...] of insulin (CMS/HCC) documented in this encounter [facility]Evaluation note* Diagnosis Encounter for screening [...] of insulin (CMS/HCC) documented in this encounter [facility]Evaluation note* Diagnosis Encounter for screening [...] of insulin (CMS/HCC) documented in this encounter [facility]Evaluation [facility]* Diagnosis Encounter for screening [...] extremity edema- Primary documented in this encounter [facility]Evaluation note* Diagnosis Encounter for screening [...] diabetes mellitus (CMS/HCC) documented in this encounter [facility]Evaluation note* Diagnosis Encounter for screening [...] (CMS/HCC) Hypercalcemia- Primary documented in this encounter [facility]Evaluation note* Diagnosis Encounter for screening [...] aura and without status migrainosus, not intractable ([facility]) Hospital discharge follow-up Other follow-up examination Type 2 diabetes mellitus with diabetic microalbuminuria, without long-term current use of insulin (CMS/[facility])- Primary Other hyperlipidemia Essential hypertension Unspecified essential hypertension Bilateral lower extremity edema Lumbar back pain- Primary [facility] discharge follow-up Other follow-up examination Essential hypertension- Primary Unspecified essential hypertension Type 2 diabetes mellitus with diabetic microalbuminuria, without long-term current use of insulin (CMS/[facility]) Morbid (severe) obesity due to excess calories (E66.01) Other hyperlipidemia Lumbar back pain Lumbago Type 2 diabetes mellitus without complication, without long-term current use of insulin Diabetic polyneuropathy associated with type 2 diabetes mellitus (CMS/[facility]) Mixed urge and stress incontinence Mixed incontinence urge and stress (male)(female) Snoring Other dyspnea and respiratory abnormality Encounter for long-term (current) use of high-risk medication Encounter for long-term (current) use of other medications Type 2 diabetes mellitus with diabetic microalbuminuria, without long-term current use of insulin ([facility])- Primary Essential hypertension Unspecified essential hypertension Other hyperlipidemia Snoring Other dyspnea and respiratory abnormality Mixed urge and stress incontinence Mixed incontinence urge and stress (male)(female) Type 2 diabetes mellitus with diabetic microalbuminuria, without long-term current use of insulin ([facility])- Primary Essential hypertension Unspecified essential hypertension Other [...] microalbuminuria, without long-term current use of insulin ([facility])- Primary Morbid (severe) obesity due to excess calories ([facility]) Other hyperlipidemia Body mass index (BMI) 39.0-39.9, [...] diabetes mellitus (CMS/HCC) documented in this encounter [facility]Evaluation [facility]* Diagnosis Encounter for screening [...] parathyroid hormone (PTH) documented in this encounter [facility]Evaluation [facility]* Diagnosis Encounter for screening [...] unspecified osteoporosis type, unspecified pathological fracture presence ([facility]) Diabetic polyneuropathy associated with type 2 diabetes mellitus ([facility]) Gastroesophageal reflux disease without esophagitis Esophageal reflux Migraine with aura and without status migrainosus, not intractable ([facility]) Hospital discharge follow-up Other follow-up examination Type 2 diabetes mellitus with diabetic microalbuminuria, without long-term current use of insulin ([facility])- Primary Other hyperlipidemia Essential hypertension Unspecified essential hypertension Bilateral lower extremity edema Lumbar back pain- Primary [facility] discharge follow-up Other follow-up examination Essential hypertension- Primary Unspecified essential hypertension Type 2 diabetes mellitus with diabetic microalbuminuria, without long-term current use of insulin ([facility]) Morbid (severe) obesity due to excess calories (E66.01) Other hyperlipidemia Lumbar back pain Lumbago Type 2 diabetes mellitus without complication, without long-term current use of insulin Diabetic polyneuropathy associated with type 2 diabetes mellitus ([facility]) Mixed urge and stress incontinence Mixed incontinence urge and stress (male)(female) Snoring Other dyspnea and respiratory abnormality Encounter for long-term (current) use of high-risk medication Encounter for long-term (current) use of other medications Type 2 diabetes mellitus with diabetic microalbuminuria, without long-term current use of insulin ([facility])- Primary Essential hypertension Unspecified essential hypertension Other hyperlipidemia Snoring Other dyspnea and respiratory abnormality Mixed urge and stress incontinence Mixed incontinence urge and stress (male)(female) Type 2 diabetes mellitus with diabetic microalbuminuria, without long-term current use of insulin ([facility])- Primary Essential hypertension Unspecified essential hypertension Other hyperlipidemia JANETT (obstructive sleep apnea) Obstructive sleep apnea (adult) (pediatric) Type 2 diabetes mellitus without complication, without long-term current use of insulin Type 2 diabetes mellitus with diabetic microalbuminuria, without long-term current use of insulin ([facility])- Primary Morbid (severe) obesity due to excess calories ([facility]) Other hyperlipidemia Body mass index (BMI) 39.0-39.9, adult JANETT (obstructive sleep apnea) Obstructive sleep apnea (adult) (pediatric) Bilateral lower extremity edema Migraine with aura and without status migrainosus, not intractable ([facility]) Cigarette nicotine dependence without complication Hypercalcemia Essential hypertension Unspecified essential hypertension Elevated blood uric acid level Lumbar back pain Lumbago Gastroesophageal reflux disease without esophagitis Esophageal reflux Chronic gout of multiple sites, unspecified cause Acute pain of right knee Diabetic polyneuropathy associated with type 2 diabetes mellitus (CMS/HCC) Acute non-recurrent sinusitis of other sinus- Primary documented in this encounter [facility]Evaluation note* Diagnosis Encounter for screening [...] diabetes mellitus (CMS/HCC) documented in this encounter [facility]* Diagnosis Encounter for screening [...] unspecified osteoporosis type, unspecified pathological fracture presence ([facility]) Diabetic polyneuropathy associated with type 2 diabetes mellitus ([facility]) Gastroesophageal reflux disease without esophagitis Esophageal reflux Migraine with aura and without status migrainosus, not intractable ([facility]) Hospital discharge follow-up Other follow-up examination Type 2 diabetes mellitus with diabetic microalbuminuria, without long-term current use of insulin ([facility])- Primary Other hyperlipidemia Essential hypertension Unspecified essential hypertension Bilateral lower extremity edema Lumbar back pain- Primary [place] discharge follow-up Other follow-up examination Essential hypertension- Primary Unspecified essential hypertension Type 2 diabetes mellitus with diabetic microalbuminuria, without long-term current use of insulin ([facility]) Morbid (severe) obesity due to excess calories (E66.01) Other hyperlipidemia Lumbar back pain Lumbago Type 2 diabetes mellitus without complication, without long-term current use of insulin Diabetic polyneuropathy associated with type 2 diabetes mellitus ([facility]) Mixed urge and stress incontinence Mixed incontinence urge and stress (male)(female) Snoring Other dyspnea and respiratory abnormality Encounter for long-term (current) use of high-risk medication Encounter for long-term (current) use of other medications Type 2 diabetes mellitus with diabetic microalbuminuria, without long-term current use of insulin ([facility])- Primary Essential hypertension Unspecified essential hypertension Other hyperlipidemia Snoring Other dyspnea and respiratory abnormality Mixed urge and stress incontinence Mixed incontinence urge and stress (male)(female) Type 2 diabetes mellitus with diabetic microalbuminuria, without long-term current use of insulin ([facility])- Primary Essential hypertension Unspecified essential hypertension Other hyperlipidemia JANETT (obstructive sleep apnea) Obstructive sleep apnea (adult) (pediatric) Type 2 diabetes mellitus without complication, without long-term current use of insulin Type 2 diabetes mellitus with diabetic microalbuminuria, without long-term current use of insulin ([facility])- Primary Morbid (severe) obesity due to excess calories ([facility]) Other hyperlipidemia Body mass index (BMI) 39.0-39.9, [...] of insulin (CMS/HCC) documented in this encounter [facility]* Diagnosis Encounter for screening [...] microalbuminuria, without long-term current use of insulin (CMS/[facility])- Primary Essential hypertension Unspecified essential hypertension Other hyperlipidemia Snoring Other dyspnea and respiratory abnormality Mixed urge and stress incontinence Mixed incontinence urge and stress (male)(female) Type 2 diabetes mellitus with diabetic microalbuminuria, without long-term current use of insulin (CMS/[facility])- Primary Essential hypertension Unspecified essential hypertension Other hyperlipidemia JANETT (obstructive sleep apnea) Obstructive sleep apnea (adult) (pediatric) Type 2 diabetes mellitus without complication, without long-term current use of insulin Type 2 diabetes mellitus with diabetic microalbuminuria, without long-term current use of insulin (CMS/[facility])- Primary Morbid (severe) obesity due to excess calories (CMS/HCC) Other hyperlipidemia Body mass index (BMI) 39.0-39.9, adult JANETT (obstructive sleep apnea) Obstructive sleep apnea (adult) (pediatric) Bilateral lower extremity edema Migraine with aura and without status migrainosus, not intractable (CMS/[facility]) Cigarette nicotine dependence without complication Hypercalcemia Essential hypertension Unspecified essential hypertension Elevated blood uric acid level Lumbar back pain Lumbago Gastroesophageal reflux disease without esophagitis Esophageal reflux Chronic gout of multiple sites, unspecified cause Acute pain of right knee Diabetic polyneuropathy associated with type 2 diabetes mellitus (CMS/HCC) Low serum parathyroid hormone (PTH)- Primary documented in this encounter [facility]* Diagnosis Encounter for screening [...] microalbuminuria, without long-term current use of insulin ([facility])- Primary Other hyperlipidemia Essential hypertension Unspecified essential hypertension Bilateral lower extremity edema Lumbar back pain- Primary Lumbago Hospital discharge follow-up Other follow-up examination Essential hypertension- Primary Unspecified essential hypertension Type 2 diabetes mellitus with diabetic microalbuminuria, without long-term current use of insulin ([facility]) Morbid (severe) obesity due to excess calories (E66.01) Other hyperlipidemia Lumbar back pain Lumbago Type 2 diabetes mellitus without complication, without long-term current use of insulin ([facility]) Diabetic polyneuropathy associated with type 2 diabetes mellitus (HCC) Mixed urge and stress incontinence Mixed incontinence urge and stress (male)(female) Snoring Other dyspnea and respiratory abnormality Encounter for long-term (current) use of high-risk medication Encounter for long-term (current) use of other medications Type 2 diabetes mellitus with diabetic microalbuminuria, without long-term current use of insulin ([facility])- Primary Essential hypertension Unspecified essential hypertension Other hyperlipidemia Snoring Other dyspnea and respiratory abnormality Mixed urge and stress incontinence Mixed incontinence urge and stress (male)(female) Type 2 diabetes mellitus with diabetic microalbuminuria, without long-term current use of insulin ([facility])- Primary Essential hypertension Unspecified essential hypertension Other hyperlipidemia JANETT (obstructive sleep apnea) Obstructive sleep apnea (adult) (pediatric) Type 2 diabetes mellitus without complication, without long-term current use of insulin ([facility]) Type 2 diabetes mellitus with diabetic microalbuminuria, without long-term current use of insulin ([facility])- Primary Morbid (severe) obesity due to excess calories ([facility]) Other hyperlipidemia Body mass index (BMI) 39.0-39.9, [...] back pain Lumbago documented in this encounter [facility] note* Diagnosis Encounter for screening [...] microalbuminuria, without long-term current use of insulin ([facility])- Primary Essential hypertension Unspecified essential hypertension Other [...] microalbuminuria, without long-term current use of insulin ([facility])- Primary Morbid (severe) obesity due to excess calories ([facility]) Other hyperlipidemia Body mass index (BMI) 39.0-39.9, [...] Vitamin D deficiency documented in this encounter [facility] note* Diagnosis Encounter for screening [...] complication, without long-term current use of insulin ([facility]) Back spasm Other symptoms referable to back Closed fracture of proximal end of left fibula with routine healing, unspecified fracture morphology, subsequent encounter Closed nondisplaced fracture of second metatarsal bone of left foot with routine healing, subsequent encounter Other hyperlipidemia Hyperuricemia Other abnormal blood chemistry Osteoporosis, unspecified osteoporosis type, unspecified pathological fracture presence Diabetic polyneuropathy associated with type 2 diabetes mellitus ([facility]) Gastroesophageal reflux disease without esophagitis Esophageal reflux Migraine with aura and without status migrainosus, not intractable Hospital discharge follow-up Other follow-up examination Type 2 diabetes mellitus with diabetic microalbuminuria, without long-term current use of insulin ([facility])- Primary Other hyperlipidemia Essential hypertension Unspecified essential hypertension Bilateral lower extremity edema Lumbar back pain- Primary Lumbago Hospital discharge follow-up Other follow-up examination Essential hypertension- Primary Unspecified essential hypertension Type 2 diabetes mellitus with diabetic microalbuminuria, without long-term current use of insulin ([facility]) Morbid (severe) obesity due to excess calories (E66.01) Other hyperlipidemia Lumbar back pain Lumbago Type 2 diabetes mellitus without complication, without long-term current use of insulin ([facility]) Diabetic polyneuropathy associated with type 2 diabetes mellitus (HCC) Mixed urge and stress incontinence Mixed incontinence urge and stress (male)(female) Snoring Other dyspnea and respiratory abnormality Encounter for long-term (current) use of high-risk medication Encounter for long-term (current) use of other medications Type 2 diabetes mellitus with diabetic microalbuminuria, without long-term current use of insulin ([facility])- Primary Essential hypertension Unspecified essential hypertension Other hyperlipidemia Snoring Other dyspnea and respiratory abnormality Mixed urge and stress incontinence Mixed incontinence urge and stress (male)(female) Type 2 diabetes mellitus with diabetic microalbuminuria, without long-term current use of insulin ([facility])- Primary Essential hypertension Unspecified essential hypertension Other hyperlipidemia JANETT (obstructive sleep apnea) Obstructive sleep apnea (adult) (pediatric) Type 2 diabetes mellitus without complication, without long-term current use of insulin ([facility]) Type 2 diabetes mellitus with diabetic microalbuminuria, without long-term current use of insulin ([facility])- Primary Morbid (severe) obesity due to excess calories ([facility]) Other hyperlipidemia Body mass index (BMI) 39.0-39.9, [...] back pain Lumbago documented in this encounter [facility]* Diagnosis Encounter for screening [...] Morbid (severe) obesity due to excess calories ([facility]) Other hyperlipidemia Body mass index (BMI) 39.0-39.9, [...] unspecified cause- Primary documented in this encounter [facility] note* Diagnosis Encounter for screening [...] polyneuropathy associated with type 2 diabetes mellitus ([facility]) Gastroesophageal reflux disease without esophagitis Esophageal reflux Migraine with aura and without status migrainosus, not intractable Hospital discharge follow-up Other follow-up examination Type 2 diabetes mellitus with diabetic microalbuminuria, without long-term current use of insulin ([facility])- Primary Other hyperlipidemia Essential hypertension Unspecified essential hypertension Bilateral lower extremity edema Lumbar back pain- Primary Lumbago Hospital discharge follow-up Other follow-up examination Essential hypertension- Primary Unspecified essential hypertension Type 2 diabetes mellitus with diabetic microalbuminuria, without long-term current use of insulin ([facility]) Morbid (severe) obesity due to excess calories (E66.01) Other hyperlipidemia Lumbar back pain Lumbago Type 2 diabetes mellitus without complication, without long-term current use of insulin ([facility]) Diabetic polyneuropathy associated with type 2 diabetes mellitus ([facility]) Mixed urge and stress incontinence Mixed incontinence urge and stress (male)(female) Snoring Other dyspnea and respiratory abnormality Encounter for long-term (current) use of high-risk medication Encounter for long-term (current) use of other medications Type 2 diabetes mellitus with diabetic microalbuminuria, without long-term current use of insulin ([facility])- Primary Essential hypertension Unspecified essential hypertension Other hyperlipidemia Snoring Other dyspnea and respiratory abnormality Mixed urge and stress incontinence Mixed incontinence urge and stress (male)(female) Type 2 diabetes mellitus with diabetic microalbuminuria, without long-term current use of insulin ([facility])- Primary Essential hypertension Unspecified essential hypertension Other hyperlipidemia JANETT (obstructive sleep apnea) Obstructive sleep apnea (adult) (pediatric) Type 2 diabetes mellitus without complication, without long-term current use of insulin ([facility]) Type 2 diabetes mellitus with diabetic microalbuminuria, without long-term current use of insulin ([facility])- Primary Morbid (severe) obesity due to excess calories ([facility]) Other hyperlipidemia Body mass index (BMI) 39.0-39.9, [...] microalbuminuria, without long-term current use of insulin ([facility]) documented in this encounter [facility]* Diagnosis Encounter for screening [...] microalbuminuria, without long-term current use of insulin ([facility])- Primary Essential hypertension Unspecified essential hypertension Other hyperlipidemia Snoring Other dyspnea and respiratory abnormality Mixed urge and stress incontinence Mixed incontinence urge and stress (male)(female) Type 2 diabetes mellitus with diabetic microalbuminuria, without long-term current use of insulin ([facility])- Primary Essential hypertension Unspecified essential hypertension Other hyperlipidemia JANETT (obstructive sleep apnea) Obstructive sleep apnea (adult) (pediatric) Type 2 diabetes mellitus without complication, without long-term current use of insulin ([facility]) Type 2 diabetes mellitus with diabetic microalbuminuria, without long-term current use of insulin ([facility])- Primary Morbid (severe) obesity due to excess calories ([facility]) Other hyperlipidemia Body mass index (BMI) 39.0-39.9, [...] microalbuminuria, without long-term current use of insulin ([facility])- Primary Essential hypertension Unspecified essential hypertension Morbid (severe) obesity due to excess calories (E66.01) Cigarette nicotine dependence without complication Chronic gout of multiple sites, unspecified cause Gastroesophageal reflux disease without esophagitis Esophageal reflux Bilateral lower extremity edema documented in this encounter [facility]* Diagnosis Encounter for screening [...] polyneuropathy associated with type 2 diabetes mellitus ([facility]) Gastroesophageal reflux disease without esophagitis Esophageal reflux Migraine with aura and without status migrainosus, not intractable Hospital discharge follow-up Other follow-up examination Type 2 diabetes mellitus with diabetic microalbuminuria, without long-term current use of insulin ([facility])- Primary Other hyperlipidemia Essential hypertension Unspecified essential hypertension Bilateral lower extremity edema Lumbar back pain- Primary Lumbago Hospital discharge follow-up Other follow-up examination Essential hypertension- Primary Unspecified essential hypertension Type 2 diabetes mellitus with diabetic microalbuminuria, without long-term current use of insulin ([facility]) Morbid (severe) obesity due to excess calories (E66.01) Other hyperlipidemia Lumbar back pain Lumbago Type 2 diabetes mellitus without complication, without long-term current use of insulin ([facility]) Diabetic polyneuropathy associated with type 2 diabetes mellitus (HCC) Mixed urge and stress incontinence Mixed incontinence urge and stress (male)(female) Snoring Other dyspnea and respiratory abnormality Encounter for long-term (current) use of high-risk medication Encounter for long-term (current) use of other medications Type 2 diabetes mellitus with diabetic microalbuminuria, without long-term current use of insulin ([facility])- Primary Essential hypertension Unspecified essential hypertension Other hyperlipidemia Snoring Other dyspnea and respiratory abnormality Mixed urge and stress incontinence Mixed incontinence urge and stress (male)(female) Type 2 diabetes mellitus with diabetic microalbuminuria, without long-term current use of insulin ([facility])- Primary Essential hypertension Unspecified essential hypertension Other hyperlipidemia JANETT (obstructive sleep apnea) Obstructive sleep apnea (adult) (pediatric) Type 2 diabetes mellitus without complication, without long-term current use of insulin ([facility]) Type 2 diabetes mellitus with diabetic microalbuminuria, without long-term current use of insulin (HCC)- Primary Morbid (severe) obesity due to excess calories ([facility]) Other hyperlipidemia Body mass index (BMI) 39.0-39.9, [...] microalbuminuria, without long-term current use of insulin ([facility])- Primary Essential hypertension Unspecified essential hypertension Morbid (severe) obesity due to excess calories (E66.01) Cigarette nicotine dependence without complication Chronic gout of multiple sites, unspecified cause Gastroesophageal reflux disease without esophagitis Esophageal reflux Bilateral lower extremity edema Bilateral lower extremity edema Migraine with aura and without status migrainosus, not intractable Type 2 diabetes mellitus with diabetic microalbuminuria, without long-term current use of insulin ([facility]) Osteoporosis, unspecified osteoporosis type, unspecified pathological fracture presence documented in this encounter [facility] note* Diagnosis Encounter for screening mammogram for breast cancer- Primary Encounter for screening for malignant neoplasm of colon Type 2 diabetes mellitus without complication, without long-term current use of insulin ([facility]) Upper respiratory tract infection, unspecified type URTI (acute upper respiratory infection) Acute upper respiratory infections of unspecified site Migraine with aura and without status migrainosus, not intractable- Primary Type 2 diabetes mellitus without complication, without long-term current use of insulin ([facility]) Morbid (severe) obesity due to excess calories (E66.01) Body mass index [BMI] 40.0-44.9, adult (Z68.41) Essential hypertension Unspecified essential hypertension Essential hypertension- Primary Unspecified essential hypertension Type 2 diabetes mellitus without complication, without long-term current use of insulin ([facility]) Back spasm Other symptoms referable to back Closed fracture of proximal end of left fibula with routine healing, unspecified fracture morphology, subsequent encounter Closed nondisplaced fracture of second metatarsal bone of left foot with routine healing, subsequent encounter Other hyperlipidemia Hyperuricemia Other abnormal blood chemistry Osteoporosis, unspecified osteoporosis type, unspecified pathological fracture presence Diabetic polyneuropathy associated with type 2 diabetes mellitus ([facility]) Gastroesophageal reflux disease without esophagitis Esophageal reflux Migraine with aura and without status migrainosus, not intractable Hospital discharge follow-up Other follow-up examination Type 2 diabetes mellitus with diabetic microalbuminuria, without long-term current use of insulin ([facility])- Primary Other hyperlipidemia Essential hypertension Unspecified essential hypertension Bilateral lower extremity edema Lumbar back pain- Primary Lumbago Hospital discharge follow-up Other follow-up examination Essential hypertension- Primary Unspecified essential hypertension Type 2 diabetes mellitus with diabetic microalbuminuria, without long-term current use of insulin ([facility]) Morbid (severe) obesity due to excess calories (E66.01) Other hyperlipidemia Lumbar back pain Lumbago Type 2 diabetes mellitus without complication, without long-term current use of insulin ([facility]) Diabetic polyneuropathy associated with type 2 diabetes mellitus ([facility]) Mixed urge and stress incontinence Mixed incontinence urge and stress (male)(female) Snoring Other dyspnea and respiratory abnormality Encounter for long-term (current) use of high-risk medication Encounter for long-term (current) use of other medications Type 2 diabetes mellitus with diabetic microalbuminuria, without long-term current use of insulin ([facility])- Primary Essential hypertension Unspecified essential hypertension Other hyperlipidemia Snoring Other dyspnea and respiratory abnormality Mixed urge and stress incontinence Mixed incontinence urge and stress (male)(female) Type 2 diabetes mellitus with diabetic microalbuminuria, without long-term current use of insulin ([facility])- Primary Essential hypertension Unspecified essential hypertension Other hyperlipidemia JANETT (obstructive sleep apnea) Obstructive sleep apnea (adult) (pediatric) Type 2 diabetes mellitus without complication, without long-term current use of insulin ([facility]) Type 2 diabetes mellitus with diabetic microalbuminuria, without long-term current use of insulin ([facility])- Primary Morbid (severe) obesity due to excess calories ([facility]) Other hyperlipidemia Body mass index (BMI) 39.0-39.9, [...] polyneuropathy associated with type 2 diabetes mellitus ([facility]) Type 2 diabetes mellitus with diabetic microalbuminuria, [...] diabetes mellitus (HCC) documented in this encounter [facility]* Diagnosis Encounter for screening [...] microalbuminuria, without long-term current use of insulin ([facility])- Primary Essential hypertension Unspecified essential hypertension Other hyperlipidemia Snoring Other dyspnea and respiratory abnormality Mixed urge and stress incontinence Mixed incontinence urge and stress (male)(female) Type 2 diabetes mellitus with diabetic microalbuminuria, without long-term current use of insulin ([facility])- Primary Essential hypertension Unspecified essential hypertension Other hyperlipidemia JANETT (obstructive sleep apnea) Obstructive sleep apnea (adult) (pediatric) Type 2 diabetes mellitus without complication, without long-term current use of insulin ([facility]) Type 2 diabetes mellitus with diabetic microalbuminuria, without long-term current use of insulin ([facility])- Primary Morbid (severe) obesity due to excess calories ([facility]) Other hyperlipidemia Body mass index (BMI) 39.0-39.9, [...] microalbuminuria, without long-term current use of insulin ([facility])- Primary Essential hypertension Unspecified essential hypertension Morbid (severe) obesity due to excess calories (E66.01) Cigarette nicotine dependence without complication Chronic gout of multiple sites, unspecified cause Gastroesophageal reflux disease without esophagitis Esophageal reflux Bilateral lower extremity edema Lumbar back pain Lumbago documented in this encounter [facility]* Diagnosis Encounter for screening mammogram for breast cancer- Primary Encounter for screening for malignant neoplasm of colon Type 2 diabetes mellitus without complication, without long-term current use of insulin ([facility]) Upper respiratory tract infection, unspecified type URTI (acute upper respiratory infection) Acute upper respiratory infections of unspecified site Migraine with aura and without status migrainosus, not intractable- Primary Type 2 diabetes mellitus without complication, without long-term current use of insulin ([facility]) Morbid (severe) obesity due to excess calories (E66.01) Body mass index [BMI] 40.0-44.9, adult (Z68.41) Essential hypertension Unspecified essential hypertension Essential hypertension- Primary Unspecified essential hypertension Type 2 diabetes mellitus without complication, without long-term current use of insulin ([facility]) Back spasm Other symptoms referable to back Closed fracture of proximal end of left fibula with routine healing, unspecified fracture morphology, subsequent encounter Closed nondisplaced fracture of second metatarsal bone of left foot with routine healing, subsequent encounter Other hyperlipidemia Hyperuricemia Other abnormal blood chemistry Osteoporosis, unspecified osteoporosis type, unspecified pathological fracture presence Diabetic polyneuropathy associated with type 2 diabetes mellitus ([facility]) Gastroesophageal reflux disease without esophagitis Esophageal reflux Migraine with aura and without status migrainosus, not intractable Hospital discharge follow-up Other follow-up examination Type 2 diabetes mellitus with diabetic microalbuminuria, without long-term current use of insulin ([facility])- Primary Other hyperlipidemia Essential hypertension Unspecified essential hypertension Bilateral lower extremity edema Lumbar back pain- Primary Lumbago Hospital discharge follow-up Other follow-up examination Essential hypertension- Primary Unspecified essential hypertension Type 2 diabetes mellitus with diabetic microalbuminuria, without long-term current use of insulin ([facility]) Morbid (severe) obesity due to excess calories (E66.01) Other hyperlipidemia Lumbar back pain Lumbago Type 2 diabetes mellitus without complication, without long-term current use of insulin ([facility]) Diabetic polyneuropathy associated with type 2 diabetes mellitus ([facility]) Mixed urge and stress incontinence Mixed incontinence urge and stress (male)(female) Snoring Other dyspnea and respiratory abnormality Encounter for long-term (current) use of high-risk medication Encounter for long-term (current) use of other medications Type 2 diabetes mellitus with diabetic microalbuminuria, without long-term current use of insulin ([facility])- Primary Essential hypertension Unspecified essential hypertension Other hyperlipidemia Snoring Other dyspnea and respiratory abnormality Mixed urge and stress incontinence Mixed incontinence urge and stress (male)(female) Type 2 diabetes mellitus with diabetic microalbuminuria, without long-term current use of insulin ([facility])- Primary Essential hypertension Unspecified essential hypertension Other hyperlipidemia JANETT (obstructive sleep apnea) Obstructive sleep apnea (adult) (pediatric) Type 2 diabetes mellitus without complication, without long-term current use of insulin ([facility]) Type 2 diabetes mellitus with diabetic microalbuminuria, without long-term current use of insulin ([facility])- Primary Morbid (severe) obesity due to excess calories ([facility]) Other hyperlipidemia Body mass index (BMI) 39.0-39.9, [...] microalbuminuria, without long-term current use of insulin ([facility])- Primary Essential hypertension Unspecified essential hypertension Morbid (severe) obesity due to excess calories (E66.01) Cigarette nicotine dependence without complication Chronic gout of multiple sites, unspecified cause Gastroesophageal reflux disease without esophagitis Esophageal reflux Bilateral lower extremity edema Other hyperlipidemia documented in this encounter [facility]* Diagnosis Encounter for screening mammogram for breast cancer- Primary Encounter for screening for malignant neoplasm of colon Type 2 diabetes mellitus without complication, without long-term current use of insulin ([facility]) Upper respiratory tract infection, unspecified type URTI (acute upper respiratory infection) Acute upper respiratory infections of unspecified site Migraine with aura and without status migrainosus, not intractable- Primary Type 2 diabetes mellitus without complication, without long-term current use of insulin ([facility]) Morbid (severe) obesity due to excess calories (E66.01) Body mass index [BMI] 40.0-44.9, adult (Z68.41) Essential hypertension Unspecified essential hypertension Essential hypertension- Primary Unspecified essential hypertension Type 2 diabetes mellitus without complication, without long-term current use of insulin ([facility]) Back spasm Other symptoms referable to back [...] microalbuminuria, without long-term current use of insulin ([facility])- Primary Other hyperlipidemia Essential hypertension Unspecified essential hypertension Bilateral lower extremity edema Lumbar back pain- Primary Lumbago Hospital discharge follow-up Other follow-up examination Essential hypertension- Primary Unspecified essential hypertension Type 2 diabetes mellitus with diabetic microalbuminuria, without long-term current use of insulin ([facility]) Morbid (severe) obesity due to excess calories (E66.01) Other hyperlipidemia Lumbar back pain Lumbago Type 2 diabetes mellitus without complication, without long-term current use of insulin ([facility]) Diabetic polyneuropathy associated with type 2 diabetes mellitus ([facility]) Mixed urge and stress incontinence Mixed incontinence urge and stress (male)(female) Snoring Other dyspnea and respiratory abnormality Encounter for long-term (current) use of high-risk medication Encounter for long-term (current) use of other medications Type 2 diabetes mellitus with diabetic microalbuminuria, without long-term current use of insulin ([facility])- Primary Essential hypertension Unspecified essential hypertension Other hyperlipidemia Snoring Other dyspnea and respiratory abnormality Mixed urge and stress incontinence Mixed incontinence urge and stress (male)(female) Type 2 diabetes mellitus with diabetic microalbuminuria, without long-term current use of insulin ([facility])- Primary Essential hypertension Unspecified essential hypertension Other hyperlipidemia JANETT (obstructive sleep apnea) Obstructive sleep apnea (adult) (pediatric) Type 2 diabetes mellitus without complication, without long-term current use of insulin ([facility]) Type 2 diabetes mellitus with diabetic microalbuminuria, without long-term current use of insulin ([facility])- Primary Morbid (severe) obesity due to excess calories ([facility]) Other hyperlipidemia Body mass index (BMI) 39.0-39.9, [...] polyneuropathy associated with type 2 diabetes mellitus ([facility]) Type 2 diabetes mellitus with diabetic microalbuminuria, without long-term current use of insulin ([facility])- Primary Essential hypertension Unspecified essential hypertension Morbid [...] History tubal ligation Hospitalization History see above Connequity Other Reason for referral (narrative)* Consultation (Routine) - Pending Review Specialty Diagnoses / Procedures Referred By Darren acharya Referred To Contact Neurology Diagnoses Snoring Procedures [place] OFFICE/OUTPATIENT NEW HIGH MDM 60 MINUTES Sonam Drake NP [address] [place] [address] Sivan Banda DO [address] [place] [address] Referral ID Status Reason Start Date Expiration Date Visits Requested Visits Authorized [id number] Pending Review Specialty Services Required 10/03/2023 03/31/2024 1 1 Scheduling Instructions Please include OV note from today * Consultation (Routine) - Pending Review Specialty Diagnoses / Procedures Referred By Darren acharya Referred To Contact Urology Diagnoses Mixed urge and stress incontinence Procedures [place] OFFICE/OUTPATIENT NEW HIGH [facility] 60 MINUTES Sonam Drake NP [address] [place] [address] Skinny Villafuerte MD [address] [place] [address] Referral ID Status Reason Start Date Expiration Date Visits Requested Visits Authorized [id number] Pending Review Specialty Services Required 10/03/2023 03/31/2024 1 1 [facility] (narrative)No reason for referral information availableAdena [facility] Work Phone: Summary Purpose Family History Relationship [...] Hospital Follow Up October 19, 2024 11:32am Chief Complaint Admit Date Hospital Follow Up October 19, 2024 11:32am 3M November 23, 2024 1 :05pm Reason for Visit Admit Date Back spasm October 19, 2024 11:32am Diabetic polyneuropathy October 19, 2 025 11:32am Essential hypertension October 19 11:32am Lumbar back pain October 19, 2024 11:32am Morbid obesity due to excess calories Se pt2024 11:32am Chronic gout of multiple sites November 112024 1:05pm Essential hypertension November 23 1:05pm Mixed hyperlipidemia November 23, 2024 1:05pm Morbid obesity due to excess calories Oc tober 2024 1:05pm Nicotine dependence with current use Oct gege 2024 1:05pm Type 2 diabetes mellitus wit h diabetic microalbuminuria, without long-term November 23, 2024 1:05pm Wrist pain, left November 23, 2024 1 :05pm Additional Source Comments Care Teams (unrecognized sec tion and content) Legal Associate Relationship Specialty Start Date End Date Sr Jonathan Edwards DO [address] [place] [address] PCP - General Family Medicine 08/30/21 Legal Associate Relationship Specialty Start Date End Date [...] April 30, 2023 End: April 30, 2023 Legal Associate Relationship Specialty Start Date End Date Jose Chandler MD [address] [place] [address] PCP - General Family Medicine 12/12/23 Sonam Drake NP [address] [place] [address] Nurse Practitioner Family Medicine 09/24/23 Legal Associate Relationship Specialty Start Date End Date Jose Chandler MD [address] [place] [address] PCP - General Family Medicine 12/12/23 Sonam Drake NP [address] [place] [address] Nurse Practitioner Family Medicine 09/24/23 Legal Associate Relationship Specialty Start Date End Date Jose Chandler MD [address] [place] [address] PCP - General Family Medicine 12/12/23 Sonam Drake NP [address] [place] [address] Nurse Practitioner Family Medicine 09/24/23 Legal Associate Relationship Specialty Start Date End Date Jose Chandler MD [address] [place] [address] PCP - General Family Medicine 12/12/23 Sonam Drake NP [address] [place] [address] Nurse Practitioner Family Medicine 09/24/23 Legal Associate Relationship Specialty Start Date End Date Jose Chandler MD [address] [place] [address] PCP - General Family Medicine 12/12/23 Sonam Drake NP [address] [place] [address] Nurse Practitioner Family Medicine 09/24/23 Legal Associate Relationship Specialty Start Date End Date Jose Chandler MD [address] [place] [address] PCP - General Family Medicine 12/12/23 Sonam Drake NP [address] [place] [address] Nurse Practitioner Family Medicine 09/24/23 Legal Associate Relationship Specialty Start Date End Date Jose Chandler MD [address] [place] [address] PCP - General Family Medicine 09/24/23 Sonam Drake NP [address] [place] [address] Nurse Practitioner Family Medicine 09/24/23 Legal Associate Relationship Specialty Start Date End Date Jose Chandler MD [address] [place] [address] PCP - General Family Medicine 09/24/23 Sonam Drake NP [address] [place] [address] Nurse Practitioner Family Medicine 09/24/23 Legal Associate Relationship Specialty Start Date End Date Jose Chandler MD [address] [place] [address] PCP - General Family Medicine 09/24/23 Sonam Drake NP [address] [place] [address] Nurse Practitioner Family Medicine 09/24/23 Legal Associate Relationship Specialty Start Date End Date Jose Chandler MD [address] [place] [address] PCP - General Family Medicine 09/24/23 Sonam Drake NP [address] [place] [address] Nurse Practitioner Family Medicine 09/24/23 Legal Associate Relationship Specialty Start Date End Date Jose Chandler MD [address] [place] [address] PCP - General Family Medicine 12/12/23 Sonam Drake NP [address] [place] [address] Nurse Practitioner Family Medicine 09/24/23 Legal Associate Relationship Specialty Start Date End Date Jose Chandler MD [address] [place] [address] PCP - General Family Medicine 12/12/23 Sonam Drake NP [address] [place] [address] Nurse Practitioner Family Medicine 09/24/23 Legal Associate Relationship Specialty Start Date End Date Jose Chandler MD [address] [place] [address] PCP - General Family Medicine 12/12/23 Sonam Drake NP [address] [place] [address] Nurse Practitioner Family Medicine 09/24/23 Legal Associate Relationship Specialty Start Date End Date Jose Chandler MD [address] [place] [address] PCP - General Family Medicine 12/12/23 Sonam Drake NP [address] [place] [address] Nurse Practitioner Family Medicine 09/24/23 Legal Associate Relationship Specialty Start Date End Date Jose Chandler MD [address] [place] [address] PCP - General Family Medicine 12/12/23 Sonam Drake NP [address] [place] [address] Nurse Practitioner Family Medicine 09/24/23 Legal Associate Relationship Specialty Start Date End Date Jose Chandler MD [address] [place] [address] PCP - General Family Medicine 12/12/23 Sonam Drake NP [address] [place] [address] Nurse Practitioner Family Medicine 09/24/23 Legal Associate Relationship Specialty Start Date End Date Jose Chandler MD [address] [place] [address] PCP - General Family Medicine 12/12/23 Sonam Drake NP [address] [place] [address] Nurse Practitioner Family Medicine 09/24/23 Legal Associate Relationship Specialty Start Date End Date Jose Chandler MD [address] [place] [address] PCP - General Family Medicine 12/12/23 Sonam Drake NP [address] [place] [address] Nurse Practitioner Family Medicine 09/24/23 Legal Associate Relationship Specialty Start Date End Date Jose Chandler MD [address] [place] [address] PCP - General Family Medicine 12/12/23 Sonam Drake NP [address] [place] [address] Nurse Practitioner Family Medicine 09/24/23 Legal Associate Relationship Specialty Start Date End Date Jose Chandler MD [address] [place] [address] PCP - General Family Medicine 12/12/23 Sonam Drake NP [address] [place] [address] Nurse Practitioner Family Medicine 09/24/23 Legal Associate Relationship Specialty Start Date End Date Jose Chandler MD [address] [place] [address] PCP - General Family Medicine 12/12/23 Sonam Drake NP Nurse Practitioner Family Medicine 09/24/23 Za Wilkerson NP [address] [place], [place] Nurse Practitioner Neurology 04/21/24 Sivan Banda DO [address] [place] [address] Referring Physician Neurology 04/21/24 Legal Associate Relationship Specialty Start Date End Date Jose Chandler MD [address] [place] [address] PCP - General Family Medicine 12/12/23 Sonam Drake NP Nurse Practitioner Family Medicine 09/24/23 Za Wilkerson, RONALDO [address] [place] [address] Nurse Practitioner Neurology 04/21/24 Sivan Banda DO [address] [place], [place] [address] Referring Physician Neurology 04/21/24 Legal Associate Relationship Specialty Start Date End Date Jose Chandler MD [address] [place] [address] PCP - General Family Medicine 12/12/23 Sonam Drake NP Nurse Practitioner Family Medicine 09/24/23 Za Wilkerson, RONALDO [address] [place] [address] Nurse Practitioner Neurology 04/21/24 Sivan Banda DO [address] [place] [address] Referring Physician Neurology 04/21/24 Legal Associate Relationship Specialty Start Date End Date Jose Chandler MD [address] [place] [address] PCP - General Family Medicine 12/12/23 Sonam Drake NP Nurse Practitioner Family Medicine 09/24/23 Za Wilkerson NP [address] [place], [place] Nurse Practitioner Neurology 04/21/24 Sivan Banda DO [address] [place] [address] Referring Physician Neurology 04/21/24 Legal Associate Relationship Specialty Start Date End Date Jose Chandler MD [address] [place] [address] PCP - General Family Medicine 12/12/23 Sonam Drake NP Nurse Practitioner Family Medicine 09/24/23 Za Wilkerson NP [address] [place], [place] Nurse Practitioner Neurology 04/21/24 Sivan Banda DO [address] [place] [address] Referring Physician Neurology 04/21/24 Legal Associate Relationship Specialty Start Date End Date Jose Chandler MD [address] [place] [address] PCP - General Family Medicine 12/12/23 Sonam Drake NP Nurse Practitioner Family Medicine 09/24/23 Za Wilkerson NP [address] [place], [place] Nurse Practitioner Neurology 04/21/24 Sivan Banda DO [address] [place] [address] Referring Physician Neurology 04/21/24 Legal Associate Relationship Specialty Start Date End Date Jose Chandler MD [address] [place] [address] PCP - General Family Medicine 12/12/23 Sonam Drake NP Nurse Practitioner Family Medicine 09/24/23 Za Wilkerson NP [address] [place] Nurse Practitioner Neurology 04/21/24 Sivan Banda DO [address] [place], [place] [address] Referring Physician Neurology 04/21/24 Team Status: Active [...] May 28, 2024 End: May 28, 2024 Legal Associate Relationship Specialty Start Date End Date Jose Chandler MD [address] [place] [address] PCP - General Family Medicine 12/12/23 Sonam Drake NP Nurse Practitioner Family Medicine 09/24/23 Za Wilkerson NP [address] [place], [place] Nurse Practitioner Neurology 04/21/24 Sivan Banda DO [address] [place] [address] Referring Physician Neurology 04/21/24 Legal Associate Relationship Specialty Start Date End Date Jose Chandler MD [address] [place] [address] PCP - General Family Medicine 12/12/23 Sonam Drake NP Nurse Practitioner Family Medicine 09/24/23 Za Wilkerson NP [address] [address] [place], [place] Nurse Practitioner Neurology 04/21/24 Sivan Banda DO [address] [place], [place] [address] Referring Physician Neurology 04/21/24 Legal Associate Relationship Specialty Start Date End Date Jose Chandler MD [address] [place] [address] PCP - General Family Medicine 12/12/23 Sonam Drake NP Nurse Practitioner Family Medicine 09/24/23 Za Wilkerson NP [address] [place], [place] Nurse Practitioner Neurology 04/21/24 Sivan Banda DO [address] [place] [address] Referring Physician Neurology 04/21/24 Legal Associate Relationship Specialty Start Date End Date Jose Chandler MD [address] [place] [address] PCP - General Family Medicine 12/12/23 Sonam Drake NP Nurse Practitioner Family Medicine 09/24/23 Za Wilkerson, RONALDO [address] [place] [address] Nurse Practitioner Neurology 04/21/24 Sivan Banda DO [address] [place], [place] [address] Referring Physician Neurology 04/21/24 Legal Associate Relationship Specialty Start Date End Date Jose Chandler MD [address] [place] [address] PCP - General Family Medicine 12/12/23 Sonam Drake NP Nurse Practitioner Family Medicine 09/24/23 Za Wilkerson, RONALDO [address] [place] [address] Nurse Practitioner Neurology 04/21/24 Sivan Banda DO [address] [place] [address] Referring Physician Neurology 04/21/24 Legal Associate Relationship Specialty Start Date End Date Jose Chandler MD [address] [place] [address] PCP - General Family Medicine 12/12/23 Sonam Drake NP Nurse Practitioner Family Medicine 09/24/23 Za Wilkerson NP [address] [place] [address] Nurse Practitioner Neurology 04/21/24 Sivan Banda DO [address] [place] [address] Referring Physician Neurology 04/21/24 Legal Associate Relationship Specialty Start Date End Date Jose Chandler MD [address] [place] [address] PCP - General Family Medicine 12/12/23 Sonam Drake NP Nurse Practitioner Family Medicine 09/24/23 Za Wilkerson NP [address] [place] [address] Nurse Practitioner Neurology 04/21/24 Sivan Banda DO [address] [place] [address] Referring Physician Neurology 04/21/24 Legal Associate Relationship Specialty Start Date End Date Jose Chandler MD [address] [place] [address] PCP - General Family Medicine 12/12/23 Sonam Drake NP Nurse Practitioner Family Medicine 09/24/23 Za Wilkerson NP [address] [place] [address] Nurse Practitioner Neurology 04/21/24 Sivan Banda DO [address] [place] [address] Referring Physician Neurology 04/21/24 Legal Associate Relationship Specialty Start Date End Date Jose Chandler MD [address] [place] [address] PCP - General Family Medicine 12/12/23 Sonam Drake NP Nurse Practitioner Family Medicine 09/24/23 Za Wilkerson, RONALDO [address] [place] [address] Nurse Practitioner Neurology 04/21/24 Sivan Banda DO [address] [place] [address] Referring Physician Neurology 04/21/24 Legal Associate Relationship Specialty Start Date End Date Jose Chandler MD [address] [place] [address] PCP - General Family Medicine 12/12/23 Sonam Drake NP Nurse Practitioner Family Medicine 09/24/23 Za Wilkerson NP [address] [place] [address] Nurse Practitioner Neurology 04/21/24 Sivan Banda DO [address] [place] [address] Referring Physician Neurology 04/21/24 Legal Associate Relationship Specialty Start Date End Date Jose Chandler MD [address] [place] [address] PCP - General Family Medicine 12/12/23 Sonam Drake NP Nurse Practitioner Family Medicine 09/24/23 Za Wilkerson NP [address] [place] [address] Nurse Practitioner Neurology 04/21/24 Sivan Banda DO [address] [place] [address] Referring Physician Neurology 04/21/24 Legal Associate Relationship Specialty Start Date End Date Jose Chandler MD [address] [place] [address] PCP - General Family Medicine 12/12/23 Sonam Drake NP Nurse Practitioner Family Medicine 09/24/23 Za Wilkerson, RONALDO [address] [place] [address] Nurse Practitioner Neurology 04/21/24 Sivan Banda DO [address] [place] [address] Referring Physician Neurology 04/21/24 Legal Associate Relationship Specialty Start Date End Date Jose Chandler MD [address] [place] [address] PCP - General Family Medicine 12/12/23 Sonam Drake NP Nurse Practitioner Family Medicine 09/24/23 Za Wilkerson NP [address] [place] [address] Nurse Practitioner Neurology 04/21/24 Sivan Banda DO [address] [place] [address] Referring Physician Neurology 04/21/24 Team Status: Inactive Member Role Status Dates Ameena Vera Primary Care Provider Active Sta rt: October 19, 2024 End: October 19, 2024 Ameena Vera Attending Provider Active Start: October 19, 2024 End: October 19, 2024 Legal Associate Relationship Specialty Start Date End Date Jose Chandler MD PCP - General Family Medicine 12/12/23 Sonam Drake NP Nurse Practitioner Family Medicine 09/24/23 Za Wilkerson NP Nurse Practitioner Neurology 04/21/24 Sivan Banda DO [address] [place] [address] Referring Physician Neurology 04/21/24 Legal Associate Relationship Specialty Start Date End Date Jose Chandler MD PCP - General Family Medicine 12/12/23 Sonam Drake NP Nurse Practitioner Family Medicine 09/24/23 Za Wilkerson NP Nurse Practitioner Neurology 04/21/24 Sivan Banda DO [address] [place] [address] Referring Physician Neurology 04/21/24 Team Status: Active Member Role Status Dates SABA Tracey Primary Care Provider Active Team Status: Inactive Member Role Status Dates SABA Tracey Primary Care Provider Active Start: October 19, 2024 End: October 19, 2024 SABA Tracey Attending Provider Active Start: October 19, 2024 End: October 19, 2024 Team Status: Active Member Role Status Dates SABA Tracey Primary Care Provider Active Start: October 26, 2024 Kasi Bennett MD Attending Provider Active Sta rt: October 26, 2024 Team Status: Inactive Member Role Status Dates SABA Tracey Primary Care Provider Active Start: November 23, 2024 End: November 23, 2024 SABA Tracey Attending Provider Active Start: November 23, 2024 End: November 23, 2024 INFORMATION SOURCE (unrecogn ized section and content) DATE CREATED AUTHOR 09/10/2021 [facility] DATE CREATED AUTHOR AUTHOR'S ORGANIZ ATION 06/08/2022 [facility] DATE CREATED AUTHOR AUTHOR'S ORGANIZ ATION 10/06/2023 [facility] DATE CREATED AUTHOR AUTHOR'S ORGANIZ ATION 06/01/2024 [facility] DATE CREATED AUTHOR AUTHOR'S ORGANIZ ATION 10/28/2024 [facility] DATE CREATED AUTHOR AUTHOR'S ORGANIZ ATION 11/02/2024 [facility] d[facility] Specialists EPIC REASON FOR [...] Diagnoses Low serum parathyroid hormone (PTH) Procedures [place] OFFICE/OUTPATIENT NEW HIGH MDM 60 MINUTES Ameena Vera, RONALDO [address] [place] [address] Phone: tel: fax: Kasi Bennett MD [address] [place] [address] Phone: tel: fax: Referral ID Status Reason Start Date Expiration Date Visits Requested Visits Authorized [id number] Pending Review Specialty Services Required 07/14/2024 01/10/2025 [...] BE BASED ON THE PRIMARY CLINICAL RECORDS. [employer] provides no warranty or guarantee of the accuracy or completeness of information in this document.
--- OUTSIDE RECORDS SUMMARY | 2024-11-30 07:38 | XMS_ITS | Clinical Summary ---
Author Organization [facility] Healthcare Address [address] [place] [address] Care Team Providers Care Trench Digger Name Role Phone Ijeoma Drake CASH APPLICATIONS CLERK Unavailable [phone] Jose Chandler MD Primary Care Provider [phone] Za Wilkerson CASH APPLICATIONS CLERK Unavailable [phone] Madhuri Banda DO Unavailable [phone] Allergies No known active allergies Medications rizatriptan (Maxalt) 10 MG tabletIndications: Migraine with aura and without status migrainosus, not intractable Take 1 tablet (10 mg) by mouth 1 (one) time if needed for migraine May repeat in 2 hours if unresolved. Do not exceed 30 mg in 24 hours. 9 tablet 12/17/19 24 Active Continuous Glucose Shredder Picker (Dexcom G7 Shredder Picker) deviceIndications: Type 2 diabetes mellitus with diabetic microalbuminuria, without long-term current use of insulin ([facility]) 1 each continuously 1 each 03/03/19 25 Active Semaglutide, 2 MG/DOSE, (Ozempic, 2 MG/DOSE,) 8 MG/3ML solution pen-injectorIndica tions:Type 2 diabetes mellitus with diabetic microalbuminuria, without long-term current use of insulin ([facility]) Inject 2 mg under the skin [...] mouth Daily as needed 07/02/19 25 Active famotidine (Pepcid) 20 MG tabletIndications: Gastroesophageal reflux disease without esophagitis Take 1 tablet (20 mg) by mouth in the morning and 1 tablet (20 mg) before bedtime. 180 tablet 08/21/19 25 Active furosemide (Lasix) 20 MG tabletIndications: Bilateral lower extremity edema Take 1 tablet (20 mg) by mouth if needed (swelling in legs) Take 20 mg by mouth if needed 90 tablet 08/21/19 25 Active divalproex (Depakote) 500 MG EC tabletIndications: Migraine with aura and without status migrainosus, not intractable Take 1 tablet (500 mg) by mouth in the morning and 1 tablet (500 mg) before bedtime. Do not crush, chew, or split. 180 tablet 09/01/19 25 026 Active metFORMIN (Glucophage) 500 MG tabletIndications: Type 2 diabetes mellitus with diabetic microalbuminuria, without long-term current use of insulin (HCC) Take 1 tablet (500 mg) by mouth in the morning and 1 tablet (500 mg) in the evening. Take with meals. 180 tablet 09/01/19 25 Active alendronate (Fosamax) 70 MG tabletIndications: Osteoporosis, unspecified osteoporosis type, unspecified pathological fracture presence Take 1 tablet (70 mg) by mouth every 7 (seven) days Take in the morning with a full glass of water, on an empty stomach, and do not take anything else by mouth or lie down for the next 30 min. 12 tablet 09/01/19 25 026 Active pregabalin (Lyrica) 75 MG capsuleIndications [...] 90 tablet 1 10/06/19 25 025 Active allopurinol (Zyloprim) 300 MG tabletIndications: Chronic gout of multiple sites, unspecified cause Take 1 tablet (300 mg) by mouth Daily 90 tablet 1 08/21/19 25 025 Active Problems Problem Noted Date Diagnosed Date Low serum parathyroid hormone (PTH) 06/03/2024 Body mass index (BMI) 39.0-39.9, adult Cigarette nicotine dependence without complicati on 05/19/2024 Assessment & Plan (08/20/2024 6:27 AM EDT): The patient has been advised of the risks of continued smoking: stroke, [place], all forms of cancer, lung disease, and [...] of the risks of continued smoking: stroke, [place], all forms of cancer, lung disease, and [...] for JANETT- Referral sent to [facility] Lumbar back pain 08/22/2023 Assessment & Plan [...] follow up after recent hospital admission at [facility] Reviewed hospital records. Answered patient's questions and concerns related to hospital stay/medication changes/results of testing. Back pain is better. C/w baclofen as needed. Has an apt with pain clinic Assessment & Plan (07/04/2023 2:15 PM EDT): Patient here for follow up after recent hospital admission at [facility] Reviewed hospital records. Answered patient's questions [...] Description 11/02/2024 10:10 AM EDT Office Visit [facility] [address] [place] [address] Kasi Bennett MD Low serum parathyroid hormone (PTH) (Primary Dx); Hypercalcemia; Vitamin D deficiency; Hypomagnesemia 11/02/2024 Bamboo flowsheet [facility] [address] [place] [address] Kasi Bennett MD 10/05/2024 Refill [facility] [address] [place] [address] Jose Chandler MD Other hyperlipidemia 09/29/2024 Refill [facility] [address] [place] [phone] Ameena Vera NP Lumbar back pain 09/28/2024 Telephone [facility] [address] [place] [address] Ameena Vera NP 09/24/2024 Telephone [facility] [address] [place] [address] Ameena Vera NP 09/23/2024 Refill [facility] [address] [place] [address] Ameena Vera, RONALDO Diabetic polyneuropathy associated with type 2 diabetes mellitus (HCC) 09/22/2024 Telephone [facility] [address] [place] [address] Ameena Vera, RONALDO 09/22/2024 Abstract [facility] [address] [place] [address] Ameena Vera NP 09/21/2024 Orders Only [facility] [address] [place] [address] Aramis Live MD 09/21/2024 Abstract [facility] [address] [place] [address] Ameena Vera NP 09/21/2024 Abstract [facility] [address] [place] [address] Ameena Vera NP from Last 3 Months [...] How often do you attend chur or methodist services? Patient declined 10/02/2023 Do [...] Recorded Patient Health Questionnaire-2 Score 0 10/03/2023 [facility] - [...] were you homeless or living in a retirement (including now)? Patient declined 10/02/2023 Comments Unknown [...] Office Visit [facility] [address] [place] [address] Elida Monroy MD [address] [place] [address] 05/03/2025 1:00 PM EDT Office Visit [facility] [address] [place] [address] Kasi Bennett MD [address] [place] [address] Procedures Procedure Name Priority Date/Time Associated Diagnosis Comments PTH, INTACT WITHOUT CALCIUM Routine 10/27/2024 11:14 AM EDT Hypercalcemia VITAMIN D 25 HYDROXY TOTAL Routine 10/26/2024 3:10 PM EDT Low serum parathyroid hormone (PTH) Hypercalcemia Vitamin D deficiency RENAL FUNCTION PANEL Routine 10/26/2024 1:56 PM E DT Low serum parathyroid hormone (PTH) Hypercalcemia MAGNESIUM Routine 10/26/2024 1:56 PM EDT Low serum parathyroid hormone (PTH) Hypercalcemia MR BRAIN WO CONTRAST Routine 09/21/2024 6:09 PM EDT XR CHEST 1 VIEW Routine 09/21/2024 6:06 PM EDT from Last 3 Months Results * PTH, intact (10/27/2024 11:14 AM EDT) Blood Venous blood specimen / Unknown us Ameena Vera NP LAB BLOOD ORDERABLES Final Resu lt [facility] * Vitamin D 25 hydroxy Total (10/26/2024 3:10 PM EDT) Blood Venous blood specimen / Unknown us Kasi Bennett MD LAB BLOOD ORDERABLES Final Re sult [facility] * Magnesium (10/26/2024 1:56 PM EDT) Blood Venous blood specimen / Unknown Kasi Bennett MD LAB BLOOD ORDERABLES Final Re sult [facility] * Renal function panel (10/26/2024 1:56 PM EDT) Blood Venous blood specimen / Unknown Kasi Bennett MD LAB BLOOD ORDERABLES Final Re sult Performing Organization Address [facility]/ZIP Co de Phone Number [facility] * MR brain wo contrast (09/21/2024 6:09 PM EDT) Anatomical Region Laterality Modality Brain Magnetic Resonan ce Aramis Live MD IMG MRI PROCEDURES Final Result * XR chest 1 view (09/21/2024 6:06 PM EDT) Anatomical Region Laterality Modality Chest Radiographic Eliana ging Aramis Live MD IMG XR PROCEDURES Final Result from Last 3 Months Insurance [employer] Care Teams Trench Digger Relationship Specialty Start Date End Date Jose Chandler MD PCP - General Family Medicine 12/12/23 Ijeoma Drake NP Nurse Practitioner Family Medicine 09/24/23 Za Wilkerson NP Nurse Practitioner Neurology 04/21/24 Madhuri Banda DO [address] [place] [address] Referring Physician Neurology 04/21/24
--- OUTSIDE RECORDS SUMMARY | 2024-11-30 07:38 | XMS_ITS | Encounter Summary ---
Author Organization [facility] Address [address] [place] [address] Care Team Providers Care Swimming Coach Or Instructor Name Role Phone Shaikh BUNNY Connelly Primary Care Provider [phone] Jose Chandler MD Primary Care Provider [phone] Ijeoma Drake ORACLE SPECIALIST Unavailable [phone] Unallocated, Timur Hernandez MD Primary Care Provi shayna Jose Chandler MD Primary Care Provider [phone] Za Wilkerson ORACLE SPECIALIST Unavailable [phone] Madhuri Banda DO Unavailable [phone] Encounter Details Date Type Department Care Team (Late st Contact Info) Description 07/03/2023 Orders Only [facility] [address] [place] [address] [place] Social History Tobacco Use Types [...] Dermatology [address] [place] [address] Elida Monroy MD [address] [place] [address] 05/03/2025 1:00 PM EDT Office Visit [facility] [address] [place] [address] Kasi Bennett MD [address] [place] [address] documented as of this encounter [...] on filedocumented in this encounter Care Teams Swimming Coach Or Instructor Relationship Specialty Start Date End Date Shaikh Connelly MD PCP - General Internal Medicine 05/02/23 09/23/23 Jose Chandler MD PCP - General Family Medicine 09/24/23 11/25/23 Unallocated, Guillermos MD David [address] [facility] [place] [address] PCP - General Family Medicine 11/26/23 12/11/23 Jose Chandler MD PCP - General Family Medicine 12/12/23 Ijeoma Drake NP Nurse Practitioner Family Medicine 09/24/23 Za Wilkerson NP [address] [facility] [place] [address] Nurse Practitioner Neurology 04/21/24 Madhuri Banda DO [address] [place] [address] Referring Physician Neurology 04/21/24 documented as of this encounter
--- OUTSIDE RECORDS SUMMARY | 2024-11-30 07:39 | XMS_ITS | Encounter Summary ---
Author Organization [facility] Address [address] [facility] [place] [address] Care Team Providers Care Medical Collections Representative Name Role Phone Shaikh BUNNY Connelly Primary Care Provider [phone] Shaikh BUNNY Connelly Primary Care Provider [phone] Jose Chandler MD Primary Care Provider [phone] Ijeoma Drake INDUSTRIAL EQUIPMENT WIRER Unavailable [phone] Unallocated, Noms Provider Primary Care Provi shayna Jose Chandler MD Primary Care Provider [phone] Za Wilkerson INDUSTRIAL EQUIPMENT WIRER Unavailable [phone] Madhuri Banda DO Unavailable [phone] Encounter Details Date Type Department Care [...] Office Visit [facility] [address] [place] [address] Elida Monroy MD [address] [place] [address] 05/03/2025 1:00 PM EDT Office Visit [facility] [place] [facility] [address] [place] [phone] Kasi Bennett MD [address] [place] [address] documented as of this encounter Procedures Procedure Name Priority Date/Time Associated Diagnosis Comments [facility] LIVER PANEL Routine 03/20/2023 9:58 AM EST [...] HOLLIS CLINISYNC Final Result Performing Organization Address [facility] Co de Phone Number [facility] TB * (ABNORMAL) [facility] LIVER PANEL (03/20/2023 9:58 AM EST) BILIRUBIN [...] HOLLIS CLINISYDAWIT Final Result Performing Organization Address [facility] Co de Phone Number [facility] TB * XR DEXA AXIAL SKELETON (03/20/2023 9:48 AM EST) Anatomical Region Laterality Modality Other 03/20/2023 9:48 AM EST Narrative 03/20/2023 9:50 AM EST [place] [id number] XRay Report Signed Patient: KARINA WEIR MR#: [id number] : 1965 Acct:[id number] Age/Sex: 57 / F ADM Date: 03/20/23 Loc: MAMMO Attending Dr: RADHA TRIVEDI Ordering Physician: RADHA TRIVEDI Date of Service: 03/20/23 Procedure(s): XR DEXA axial skeleton Accession Number(s): [id number] cc: Shaikh Erica Connelly; RADHA TRIVEDI [address] [address] Patient Name: KARINA WEIR MRN: [id number] date: 1965 Sex: F Assigned Patient Location: MAMMO Current Patient Location: LAB Accession/Order Number: [id number] Exam Date: 03/20/2023 09:28 Report Date: 03/20/2023 [...] Dictated By: Ryan Goldman M.D. Signed By: 03/20/23949 DD/ 7 TD/TT: Systems Lead: Procedure Note Radiology, Radiologist, MD - 03/20/2023 [place] [address] XRay Report Signed Patient: KARINA WEIR KMR#: [id number] : 1965Acct:[id number] Age/Sex: 57 / FADM Date: 03/20/23 Loc: MAMMO Attending Dr: RADHA TRIVEDI Ordering Physician: RADHA TRIVEDI Date of Service: 03/20/23 Procedure(s): XR DEXA axial skeleton Accession Number(s): [id number] cc: Shaikh Erica Connelly; RADHA TRIVEDI The [place] [id number] Patient Name: KARINA WEIR MRN: [id number] date: 1965 Sex: F Assigned Patient Location: MAMMO Current Patient Location: LAB Accession/Order Number: [id number] Exam Date: 03/20/2023 09:28 Report Date: 03/20/2023 [...] Ryan Goldman M.D. Signed By:03/20/2350 DD/ TD/TT: Systems Lead: Generic External Data Provider [facility] IMAGING Final Result documented in this encounter Visit Diagnoses Not on filedocumented in this encounter Care Teams Medical Collections Representative Relationship Specialty Start Date End Date Shaikh Connelly MD PCP - General Internal Medicine 11/11/22 05/01/23 Shaikh Connelly MD PCP - General Internal Medicine 05/02/23 09/23/23 Jose Chandler MD PCP - General Family Medicine 09/24/23 11/25/23 Unallocated, Timur Hernandez MD [address] [place] [address] PCP - General Family Medicine 11/26/23 12/11/23 Jose Chandler MD PCP - General Family Medicine 12/12/23 Ijeoma Drake NP Nurse Practitioner Family Medicine 09/24/23 Za Wilkerson NP [address] [place] [address] Nurse Practitioner Neurology 04/21/24 Madhuri Banda DO [address] [place] [address] Referring Physician Neurology 04/21/24 documented as of this encounter
--- OUTSIDE RECORDS SUMMARY | 2024-11-30 07:39 | XMS_ITS | Encounter Summary ---
Author Organization [facility] Address [address] [place] [address] Care Team Providers Care Marble Machine Tender Name Role Phone Shaikh BUNNY Connelly Primary Care Provider [phone] Jose Chandler MD Primary Care Provider [phone] Ijeoma Drake RIVETING MACHINE OPERATOR TAPE CONTROL Unavailable [phone] Unallocated, Timur Provider Primary Care Provi shayna Jose Chandler MD Primary Care Provider [phone] Za Wilkerson RIVETING MACHINE OPERATOR TAPE CONTROL Unavailable [phone] Madhuri Banda DO Unavailable [phone] Encounter Details Date Type Department Care Team (Late st Contact Info) Description 06/08/2023 Clinisync Result Encounter [facility] External Department Unsolicited Anahi Cuenca PA [address] [place] [address] [place], [place] [address] Social History Tobacco Use Types Packs/Day Years [...] [address] [place] [address] Elida Monroy MD [address] [place] [address] 05/03/2025 1:00 PM EDT Office Visit [facility] [facility] [address] [place] [address] Kasi Bennett MD [address] [place] [address] documented as of this encounter Procedures Procedure Name Priority Date/Time Associated Diagnosis Comments CT FOOT LT WO CON 06/08/2023 6:2 9 PM EDT documented in this encounter Results * CT FOOT LT WO CON (06/08/2023 6:29 PM EDT) Anatomical Region Laterality Modality Other 06/08/2023 6:29 PM EDT Narrative 06/08/2023 6:32 PM EDT [address] [address] [address] Scan Report Signed Patient: KARINA DE OLIVEIRA MR#: [id number] : 1965 Acct:[id number] Age/Sex: 57 / F ADM Date: 06/08/23 Loc: [place] 231-[address]: Rivas Rendon M.D. Ordering Physician: Anahi Cuenca Date of Service: 06/08/23 Procedure(s): CT foot LT wo con Accession Number(s): [id number] cc: Shaikh Erica Connelly [address] [address] Patient Name: KARINA DE OLIVEIRA MRN: [id number] date: 1965 Sex: F Assigned Patient Location: ER Current Patient Location: MS Accession/Order Number: [id number] Exam Date: 06/08/2023 17:15 Report Date: 06/08/2023 [...] Signed By: 06/08/23 1832 DD/ 1829 TD/TT: Greenhouse Assistant: Procedure Note Radiology, Radiologist, MD - 06/08/2023 [place] [address] CT Scan Report Signed Patient: KARINA DE OLIVEIRA KMR#: [id number] : 1965Acct:[id number] Age/Sex: 57 / FADM Date: 06/08/23 Loc: [place] 231-[address]: Rivas Rendon M.D. Ordering Physician: Anahi Cuenca Date of Service: 06/08/23 Procedure(s): CT foot LT wo con Accession Number(s): [id number] cc: Shaikh Erica Connelly [place] [id number] Patient Name: KARINA DE OLIVEIRA MRN: [id number] date: 1965 Sex: F Assigned Patient Location: ER Current Patient Location: MS Accession/Order Number: [id number] Exam Date: 06/08/2023 17:15 Report Date: 06/08/2023 [...] Muñoz M.D. Signed By:06/08/231831 DD/ 28 TD/TT: Greenhouse Assistant: Anahi [facility] Final Result documented in this encounter Visit Diagnoses Not on filedocumented in this encounter Care Teams Marble Machine Tender Relationship Specialty Start Date End Date Shaikh Connelly MD PCP - General Internal Medicine 05/02/23 09/23/23 Jose Chandler MD PCP - General Family Medicine 09/24/23 11/25/23 Unallocated, Timur Hernandez MD [address] [place] [place] [address] PCP - General Family Medicine 11/26/23 12/11/23 Jose Chandler MD PCP - General Family Medicine 12/12/23 Ijeoma Drake NP Nurse Practitioner Family Medicine 09/24/23 Za Wilkerson NP [address] [place] [address] Nurse Practitioner Neurology 04/21/24 Madhuri Banda DO [address] [place] [address] Referring Physician Neurology 04/21/24 documented as of this encounter
--- OUTSIDE RECORDS SUMMARY | 2024-11-30 07:39 | XMS_ITS | Encounter Summary ---
Author Organization [facility] Address [address] [place] [address] Care Team Providers Care Recycling Collections Driver Name Role Phone Shaikh BUNNY Connelly Primary Care Provider [phone] Jose Chandler MD Primary Care Provider [phone] Ijeoma Drake PREFLIGHT MECHANIC Unavailable [phone] Unallocated, Timur Hernandez MD Primary Care Provi shayna Jose Chandler MD Primary Care Provider [phone] Za Wilkerson PREFLIGHT MECHANIC Unavailable [phone] Madhuri Banda DO Unavailable [phone] Encounter Details Date Type Department Care Team ([facility] st Contact Info) Description 06/10/2023 Orders Only [facility] [address] [facility] [address] [place] [address] Rivas Rendon MD [address] [place] [facility] [place] [address] Social History Tobacco Use Types Packs/Day Years [...] [address] [place] [address] Elida Monroy MD [address] [place] [address] 05/03/2025 1:00 PM EDT Office Visit [facility] [address] [place] [address] Kasi Bennett MD [address] [place] [address] documented as of this encounter Procedures [...] on filedocumented in this encounter Care Teams Recycling Collections Driver Relationship Specialty Start Date End Date Shaikh Connelly MD PCP - General Internal Medicine 05/02/23 09/23/23 Jose Chandler MD PCP - General Family Medicine 09/24/23 11/25/23 Unallocated, Timur Hernandez MD [address] [place] [address] PCP - General Family Medicine 11/26/23 12/11/23 Jose Chandler MD PCP - General Family Medicine 12/12/23 Ijeoma Drake NP Nurse Practitioner Family Medicine 09/24/23 Za Wilkerson NP [address] [place] [address] Nurse Practitioner Neurology 04/21/24 Madhuri Banda DO [address] [place] [address] Referring Physician Neurology 04/21/24 documented as of this encounter
--- OUTSIDE RECORDS SUMMARY | 2024-11-30 07:39 | XMS_ITS | Encounter Summary ---
Author Organization [facility] Address [address] [place] [address] Care Team Providers Care Allied Health Professional Name Role Phone Shaikh BUNNY Connelly Primary Care Provider [phone] Shaikh BUNNY Connelly Primary Care Provider [phone] Jose Chandler MD Primary Care Provider [phone] Ijeoma Drake CORE FITTER Unavailable Unallocated, Noms Provider Primary Care Provi shayna Jose Chandler MD Primary Care Provider [phone] Za Wilkerson CORE FITTER Unavailable [phone] Madhuri Banda DO Unavailable [phone] Encounter Details Date Type Department Care Team (Late st Contact Info) Description 03/28/2023 Orders Only [facility] [address] [place] [address] Shaikh Connelly MD [address] [place] [address] Social History Tobacco Use Types Packs/Day Years [...] [address] [place] [address] Elida Monroy MD [address] [place] [address] 05/03/2025 1:00 PM EDT Office Visit [facility] [address] [place] [address] Kasi Bennett MD [address] [place] [address] documented as [...] on filedocumented in this encounter Care Teams Allied Health Professional Relationship Specialty Start Date End Date Shaikh Connelly MD PCP - General Internal Medicine 11/11/22 05/01/23 Shaikh Connelly MD PCP - General Internal Medicine 05/02/23 09/23/23 Jose Chandler MD PCP - General Family Medicine 09/24/23 11/25/23 Unallocated, Timur Hernandez MD [address] [facility] [place] [place] [address] PCP - General Family Medicine 11/26/23 12/11/23 Jose Chandler MD PCP - General Family Medicine 12/12/23 Ijeoma Drake NP Nurse Practitioner Family Medicine 09/24/23 Za Wilkerson NP [address] [facility] [place] [place] [address] Nurse Practitioner Neurology 04/21/24 Madhuri Banda DO [address] [place] [address] Referring Physician Neurology 04/21/24 documented as of this encounter
--- OUTSIDE RECORDS SUMMARY | 2024-11-30 07:39 | XMS_ITS | Encounter Summary ---
Author Organization [facility] Address [address] [place] [place] [address] Care Team Providers Care Clubhouse Attendant Name Role Phone Shaikh BUNNY Connelly Primary Care Provider [phone] Jose Chandler MD Primary Care Provider [phone] Ijeoma Drake HUSKER OPERATOR Unavailable [phone] Unallocated, Timur Provider Primary Care Provi shayna Jose Chandler MD Primary Care Provider [phone] Wilkerson HUSKER OPERATOR Unavailable [phone] Madhuri Banda DO Unavailable [phone] Encounter Details Date Type Department Care Team (Late st Contact Info) Description 06/08/2023 Clinisync Result Encounter [facility] External Department Unsolicited Anahi Soriano PA [address] [place] [address] [place], [place] [id number] Social History Tobacco Use Types Packs/Day Years [...] [address] [place] [address] Elida Monroy MD [address] [place] [address] 05/03/2025 1:00 PM EDT Office Visit [facility] [place] [facility] [address] [place] [address] Kasi Bennett MD [address] [place] [address] documented as of this encounter Procedures Procedure Name Priority Date/Time Associated Diagnosis Comments ECG 12-LEAD 06/08/2023 3:37 PM EDT documented in this encounter Results * ECG 12-LEAD (06/08/2023 3:37 PM EDT) Anatomical Region Laterality Modality Other 06/08/2023 3:37 PM EDT Narrative 06/09/2023 7:12 AM EDT The [address] [address] Electrocardiograph Report Signed Patient: KARINA WEIR MR#: [id number] : 1965 Acct:[id number] Age/Sex: 57 / F ADM Date: 06/08/23 Loc: MS 231-[address]: Virginia Pacheco M.D. Ordering Physician: Anahi Soriano Date of Service: 06/08/23 Procedure(s): ECG 12 lead Accession Number(s): [id number] cc: The [facility] Test Date: 2023-06-08 Pat Name: KARINA WEIR Department: Room: - Gender: Female Development Administrator: : 1965 Requested By: SHAIKH ELY Order Number: [id number] Reading MD: VIRGINIA PACHECO Measurements Intervals Blue Diamond Rate: 100 P: 69 HI: 170 QRS: [...] Signed On 06-09-2023 7:12:35 EDT by VIRGINIA PACHECO Dictated By: Virginia Pacheco M.D. Signed By: 06/09/23711 DD/ 1537 TD/TT: Integrated Circuits Inspector: Procedure Note Radiology, Radiologist, MD - 06/09/2023 [place] [address] Electrocardiograph Report Signed Patient: KARINA WEIR KMR#: [id number] : 1965Acct:[id number] Age/Sex: 57 / FADM Date: 06/08/23 Loc: MS 231-[address]: Virginia Pacheco M.D. Ordering Physician: Anahi Soriano Date of Service: 06/08/23 Procedure(s): ECG 12 lead Accession Number(s): [id number] cc: [facility] Test Date: 2023-06-08 Pat Name: KARINA WEIR Department: Room: - Gender: Female Development Administrator: : 1965 Requested By: SHAIKH ELY Order Number: [id number] Reading MD: VIRGINIA PACHECO Measurements Intervals Blue [place] Rate: 100 P: 69 HI: 170 QRS: [...] Signed On 06-09-2023 7:12:35 EDT by VIRGINIA PACHECO Dictated By: Virginia Pacheco M.D. Signed By:06/09/23711 DD/ 1537 TD/TT: Integrated Circuits Inspector: Anahi [facility] Final Result documented in this encounter Visit Diagnoses Not on filedocumented in this encounter Care Teams Clubhouse Attendant Relationship Specialty Start Date End Date Shaikh Connelly MD PCP - General Internal Medicine 05/02/23 09/23/23 Jose Chandler MD PCP - General Family Medicine 09/24/23 11/25/23 Unallocated, Noms MD David [address] [place] [address] PCP - General Family Medicine 11/26/23 12/11/23 Jose Chandler MD PCP - General Family Medicine 12/12/23 Ijeoma Drake NP Nurse Practitioner Family Medicine 09/24/23 Za Wilkerson NP [address] [place] [address] Nurse Practitioner Neurology 04/21/24 Madhuri Banda DO [address] [place] [address] Referring Physician Neurology 04/21/24 documented as of this encounter
--- OUTSIDE RECORDS SUMMARY | 2024-11-30 07:39 | XMS_ITS | Encounter Summary ---
Author Organization [facility] Address [address] [facility] [place] [address] Care Team Providers Care Control Clerk Auditing Name Role Phone Shaikh BUNNY Connelly Primary Care Provider [phone] Jose Chandler MD Primary Care Provider [phone] Ijeoma Drake SUPERVISING EDITOR NEWS REEL Unavailable [phone] Unallocated, Timur Hernandez MD Primary Care Provi shayna Jose Chandler MD Primary Care Provider [phone] Za Wilkerson SUPERVISING EDITOR NEWS REEL Unavailable [phone] Madhuri Banda DO Unavailable [phone] Encounter Details Date Type Department Care [...] Dermatology [address] [place] [address] Elida Monryo MD [address] [place] [address] 05/03/2025 1:00 PM EDT Office Visit [facility] [address] [place] [address] Kasi Bennett MD [address] [place] [address] documented as of this encounter Procedures Procedure Name Priority Date/Time Associated Diagnosis Comments MR LUMBAR SPINE WO CON 06/06/2023 4:49 PM EDT documented in this encounter Results * MR LUMBAR SPINE WO CON (06/06/2023 4:49 PM EDT) Anatomical Region Laterality Modality Other 06/06/2023 4:49 PM EDT Narrative 06/06/2023 4:51 PM EDT The [place] [id number] Magnetic Resonance Report Signed Patient: KARINA DE OLIVEIRA MR#: [id number] : 1965 Acct:[id number] Age/Sex: 57 / F ADM Date: 06/06/23 Loc: MRI Attending Dr: James Tijerina NP Ordering Physician: James Tijerina NP Date of Service: 06/06/23 Procedure(s): MR lumbar spine wo con Accession Number(s): [id number] cc: Shaikh Erica Connelly; James Tijerina NP The [address] [address] Patient Name: KARINA DE OLIVEIRA MRN: [id number] date: 1965 Sex: F Assigned Patient Location: MRI Current Patient Location: MRI Accession/Order Number: [id number] Exam Date: 06/06/2023 12:30 Report Date: 06/06/2023 [...] Signed By: 06/06/23 1651 DD/ 1649 TD/TT: Retail Account Specialist: Procedure Note Radiology, Radiologist, - 06/06/2023 [place] [address] Magnetic Resonance Report Signed Patient: KARINA DE OLIVEIRA KMR#: [id number] : 1965Acct:[id number] Age/Sex: 57 / FADM Date: 06/06/23 Loc: MRI Attending Dr: James Tijerina NP Ordering Physician: James Tijerina NP Date of Service: 06/06/23 Procedure(s): MR lumbar spine wo con Accession Number(s): [id number] cc: Shaikh Erica Connelly; James Tijerina NP The [place] [address] Patient Name: KARINA DE OLIVEIRA MRN: [id number] date: 1965 Sex: F Assigned Patient Location: MRI Current Patient Location: MRI Accession/Order Number: [id number] Exam Date: 06/06/2023 12:30 Report Date: 06/06/2023 [...] Mild rightforaminal narrowing. Electronically authenticated by: RUPERTO RFITZ Date: 06/06/2023 16:49 Dictated By: Ruperto Fritz M.D. Signed By:06/06/23 1651 DD/ 1649 TD/TT: Retail Account Specialist: Generic External Data Provider [facility] Final Result documented in this encounter Visit Diagnoses Not on filedocumented in this encounter Care Teams Control Clerk Auditing Relationship Specialty Start Date End Date Shaikh Connelly MD PCP - General Internal Medicine 05/02/23 09/23/23 Jose Chandler MD PCP - General Family Medicine 09/24/23 11/25/23 Unallocated, Timur Hernandez MD [address] [facility] [place] [address] PCP - General Family Medicine 11/26/23 12/11/23 Jose Chandler MD PCP - General Family Medicine 12/12/23 Ijeoma Drake NP Nurse Practitioner Family Medicine 09/24/23 Za Wilkerson NP [address] [place] [address] Nurse Practitioner Neurology 04/21/24 Madhuri Banda DO [address] [place] [address] Referring Physician Neurology 04/21/24 documented as of this encounter
--- OUTSIDE RECORDS SUMMARY | 2024-11-30 07:39 | XMS_ITS | Encounter Summary ---
Author Organization [facility] Address [address] [facility] [place] [address] Care Team Providers Care Roll Line Operator Name Role Phone Shaikh BUNNY Connelly Primary Care Provider [phone] Shaikh BUNNY Connelly Primary Care Provider [phone] Jose Chandler MD Primary Care Provider [phone] Ijeoma Drake COTTON DISPATCHER Unavailable [phone] Unallocated, Noms Provider Primary Care Provi shayna Jose Chandelr MD Primary Care Provider [phone] Za Wilkerson COTTON DISPATCHER Unavailable [phone] Madhuri Banda DO Unavailable [phone] Encounter Details Date Type Department Care [...] Office Visit [facility] [place] [facility] [address] [place] [address] Elida Monroy MD [address] [place] [address] 05/03/2025 1:00 PM EDT Office Visit [facility] [place] [facility] [address] [place] [address] Kasi Bennett MD [address] [place] [address] documented as of this encounter Procedures Procedure Name Priority Date/Time Associated Diagnosis Comments MM TOMOSYNTHESIS SCREENING BI 03/20/2023 12:57 PM EST documented in this encounter Results * MM TOMOSYNTHESIS SCREENING BI (03/20/2023 12:57 PM EST) Anatomical Region Laterality Modality Other 03/20/2023 12:5 7 PM EST Narrative 03/20/2023 12:59 [place] [address] Mammography Report Signed Patient: KARINA WEIR MR#: [id number] : 1965 Acct:[id number] Age/Sex: 57 / F ADM Date: 03/20/23 Loc: MAMMO Attending Dr: RADHA TRIVEDI Ordering Physician: RADHA TRIVEDI Results: Date of Service: 03/20/23 Follow Up: Procedure(s): MM tomosynthesis screening BI Accession Number(s): [id number] cc: Shaikh Erica Connelly; RADHA TRIVEDI Patient Name: KARINA WEIR MR#: [id number] : 1965 Exam Date: 03/20/2023 Ordering Doctor: [...] skin cancer at age 69. LOCATION: [facility] BREAST COMPOSITION: Scattered areas fibroglandular density. [...] Signed By: 03/20/23 1259 DD/ 1257 TD/TT: Swimming Pool Attendant: Procedure Note Radiology, Radiologist, MD - 03/20/2023 [place] [address] Mammography Report Signed Patient: KARINA WEIR KMR#: [id number] : 1965Acct:[id number] Age/Sex: 57 / FADM Date: 03/20/23 Loc: MAMMO Attending Dr: RADHA TRIVEDI Ordering Physician: RADHA TRIVEDIResults: Date of Service: 03/20/23Follow Up: Procedure(s): MM tomosynthesis screening BI Accession Number(s): [id number] cc: Shaikh Erica Connelly; RADHA TRIVEDI Patient Name: KARINA WEIR MR#: [id number] : 1965 Exam Date: 03/20/2023 Ordering Doctor: DR RADHA TRIVEDI [facility] RADIOLOGY REPORT PROCEDURE: MM TOMOSYNTHESIS SCREENING [...] skin cancer at age 69. LOCATION: [facility] BREAST COMPOSITION: Scattered areas fibroglandular density. [...] M.D. Signed By:03/20/23 1259 DD/ 1257 TD/TT: Swimming Pool Attendant: us Generic External Data Provider [facility] Final Result documented in this encounter Visit Diagnoses Not on filedocumented in this encounter Care Teams Roll Line Operator Relationship Specialty Start Date End Date Shaikh Connelly MD PCP - General Internal Medicine 11/11/22 05/01/23 Shaikh oCnnelly MD PCP - General Internal Medicine 05/02/23 09/23/23 Jose Chandler MD PCP - General Family Medicine 09/24/23 11/25/23 Unallocated, [place] [address] [place] [address] PCP - General Family Medicine 11/26/23 12/11/23 Jose Chandler MD PCP - General Family Medicine 12/12/23 Ijeoma Drake NP Nurse Practitioner Family Medicine 09/24/23 Za Wilkerson NP [address] [place] [address] Nurse Practitioner Neurology 04/21/24 Madhuri Banda DO [address] [place] [address] Referring Physician Neurology 04/21/24 documented as of this encounter
--- OUTSIDE RECORDS SUMMARY | 2024-11-30 07:39 | XMS_ITS | Encounter Summary ---
Author Organization [facility] Address [address] [place] [address] Care Team Providers Care Vacuum Spindle Sander Name Role Phone Shaikh BUNNY Connelly Primary Care Provider [phone] Shaikh BUNNY Connelly Primary Care Provider [phone] Jose Chandler MD Primary Care Provider [phone] Ijeoma Drake SPIKE MAKER Unavailable [phone] Unallocated, Noms Provider Primary Care Provi shayna Jose Chandler MD Primary Care Provider [phone] Za Wilkerson SPIKE MAKER Unavailable [phone] Madhuri Banda DO Unavailable [phone] Encounter Details Date Type Department Care Team (Late st Contact Info) Description 03/21/2023 Orders Only [facility] [address] [place] [address] Shaikh Connelly MD [address] [place] [phone] Social History Tobacco Use Types Packs/Day Years [...] 04/06/2025 1:15 PM EST Office Visit [facility] [address] [place] [address] Elida Monroy MD [address] [place] [address] 05/03/2025 1:00 PM EDT Office Visit [facility] [address] [place] [address] Kasi Bennett MD [address], [address] [place] [address] documented as of this encounter [...] on filedocumented in this encounter Care Teams Vacuum Spindle Sander Relationship Specialty Start Date End Date Shaikh Connelly MD PCP - General Internal Medicine 11/11/22 05/01/23 Shaikh Connelly MD PCP - General Internal Medicine 05/02/23 09/23/23 Jose Chandler MD PCP - General Family Medicine 09/24/23 11/25/23 Unallocated, Timur Hernandez MD [address] [place] [address] PCP - General Family Medicine 11/26/23 12/11/23 Jose Chandler MD PCP - General Family Medicine 12/12/23 Ijeoma Drake NP Nurse Practitioner Family Medicine 09/24/23 Za Wilkerson NP [address] [place] [address] Nurse Practitioner Neurology 04/21/24 Madhuri Banda DO [address] [place] [address] Referring Physician Neurology 04/21/24 documented as of this encounter
--- OUTSIDE RECORDS SUMMARY | 2024-11-30 07:39 | XMS_ITS | Encounter Summary ---
Author Organization [facility] Address [address] [facility] [place] [address] Care Team Providers Care Scowman Name Role Phone Shaikh BUNNY Connelly Primary Care Provider [phone] Jose Chandler MD Primary Care Provider [phone] Ijeoma Drake CARD DECORATOR Unavailable [phone] Unallocated, Timur Hernandez MD Primary Care Provi shayna Jose Chandler MD Primary Care Provider [phone] Za Wilkerson CARD DECORATOR Unavailable [phone] Madhuri Banda DO Unavailable [phone] Encounter Details Date Type Department Care [...] Dermatology [address] [place] [address] Elida Monroy MD [address] [place] [address] 05/03/2025 1:00 PM EDT Office Visit [facility] [place] [facility] [address] [place] [address] Kasi Bennett MD [address] [place] [address] documented as of this encounter Procedures Procedure Name Priority Date/Time Associated Diagnosis Comments XR LUMBAR SPINE 6V W BENDING 05/22/2023 3:48 PM EDT documented in this encounter Results * XR LUMBAR SPINE 6V W BENDING (05/22/2023 3:48 PM EDT) Anatomical Region Laterality Modality Other 05/22/2023 3:48 PM EDT Narrative 05/22/2023 3:51 PM EDT The [address] [address] XRay Report Signed Patient: KARINA DE OLIVEIRA MR#: [id number] : 1965 Acct:[id number] Age/Sex: 57 / F ADM Date: 05/22/23 Loc: RAD Attending Dr: James Tijerina CARD DECORATOR Ordering Physician: James Tijerina NP Date of Service: 05/22/23 Procedure(s): XR lumbar spine 6V w bending Accession Number(s): [id number] cc: Shaikh Erica Connelly; James Tijerina NP The [address] [address] Patient Name: KARINA DE OLIVEIRA MRN: [id number] date: 1965 Sex: F Assigned Patient Location: RAD Current Patient Location: RAD Accession/Order Number: [id number] Exam Date: 05/22/2023 12:18 Report Date: 05/22/2023 [...] By: Ryan Goldman M.D. Signed By: 05/22/23 1553 DD/ 1548 TD/TT: Director Of Residence Life: Procedure Note Radiology, Radiologist, MD - 05/22/2023 [place] [address] XRay Report Signed Patient: KARINA DE OLIVEIRA KMR#: [id number] : 1965Acct:[id number] Age/Sex: 57 / FADM Date: 05/22/23 Loc: [place] Attending Dr: James Tijerina NP Ordering Physician: James Tijerina NP Date of Service: 05/22/23 Procedure(s): XR lumbar spine 6V w bending Accession Number(s): [id number] cc: Shaikh Erica Connelly; James Tijerina NP The [place] [address] Patient Name: KARINA DE OLIVEIRA MRN: [id number] date: 1965 Sex: F Assigned Patient Location: [facility] Current Patient Location: [facility] Accession/Order Number: [id number] Exam Date: 05/22/2023 12:18 Report Date: 05/22/2023 [...] M.D. Signed By:05/22/23 1551 DD/ 1548 TD/TT: Director Of Residence Life: us Generic External Data Provider [facility] Final Result documented in this encounter Visit Diagnoses Not on filedocumented in this encounter Care Teams Scowman Relationship Specialty Start Date End Date Shaikh Connelly MD PCP - General Internal Medicine 05/02/23 09/23/23 Jose Chandler MD PCP - General Family Medicine 09/24/23 11/25/23 Unallocated, Noms MD David [address] [place] [address] PCP - General Family Medicine 11/26/23 12/11/23 Jose Chandler MD PCP - General Family Medicine 12/12/23 Ijeoma Drake NP Nurse Practitioner Family Medicine 09/24/23 Za Wilkerson NP [address] [place] [address] Nurse Practitioner Neurology 04/21/24 Madhuri Banda DO [address] [place] [address] Referring Physician Neurology 04/21/24 documented as of this encounter
--- OUTSIDE RECORDS SUMMARY | 2024-11-30 07:39 | XMS_ITS | Encounter Summary ---
Author Organization [facility] Address [address] [place] [address] Care Team Providers Care Review Assistant Name Role Phone Shaikh BUNNY Connelly Primary Care Provider [phone] Jose Chandler MD Primary Care Provider [phone] Ijeoma Drake ASPHALT PLANT WORKER Unavailable [phone] Unallocated, Timur Hernandez MD Primary Care Provi shayna Jose Chandler MD Primary Care Provider [phone] Za Wilkerson ASPHALT PLANT WORKER Unavailable [phone] Madhuri Banda DO Unavailable [phone] Encounter Details Date Type Department Care Team (Late st Contact Info) Description 06/11/2023 Orders Only [facility] [address] [place] [address] Shaikh Connelly MD [address] [place] [address] Social History Tobacco Use Types Packs/Day Years [...] [address] [place] [address] Elida Monroy MD [address] [place] [address] 05/03/2025 1:00 PM EDT Office Visit [facility] [facility] [address] [place] [address] Kasi Bennett MD [address] [place] [address] documented as of this encounter Procedures [...] on filedocumented in this encounter Care Teams Review Assistant Relationship Specialty Start Date End Date Shaikh Connelly MD PCP - General Internal Medicine 05/02/23 09/23/23 Jose Chandler MD PCP - General Family Medicine 09/24/23 11/25/23 Unallocated, Timur Hernandez MD [address] [place] [address] PCP - General Family Medicine 11/26/23 12/11/23 Jose Chandler MD PCP - General Family Medicine 12/12/23 Ijeoma Drake NP Nurse Practitioner Family Medicine 09/24/23 Za Wilkerson NP [address] [place] [address] Nurse Practitioner Neurology 04/21/24 Madhuri Banda DO [address] [place] [address] Referring Physician Neurology 04/21/24 documented as of this encounter
--- OUTSIDE RECORDS SUMMARY | 2024-11-30 07:39 | XMS_ITS | Encounter Summary ---
Author Organization [facility] Address [address] [place] [place] [address] Care Team Providers Care Repairer Finished Metal Name Role Phone Shaikh BUNNY Connelly Primary Care Provider [phone] Shaikh BUNNY Connelly Primary Care Provider [phone] Jose Chandler MD Primary Care Provider [phone] Ijeoma Drake CHEMICAL ANALYTICAL SAMPLER Unavailable Unallocated, Noms Provider Primary Care Provi shayna Jose Chandler MD Primary Care Provider [phone] Za Wilkerson CHEMICAL ANALYTICAL SAMPLER Unavailable [phone] Madhuri Banda DO Unavailable [phone] Encounter Details Date Type Department Care Team (Late st Contact Info) Description 03/18/2023 Orders Only [facility] [address] [place] [address] Shaikh Connelly MD [address] [place] [address] Social History Tobacco Use Types Packs/Day Years [...] [address] [place] [address] Elida Monroy MD [address] [place] [address] 05/03/2025 1:00 PM EDT Office Visit [facility] [address] [place] [address] Kasi Bennett MD [address], [address] [...] on filedocumented in this encounter Care Teams Repairer Finished Metal Relationship Specialty Start Date End Date Shaikh Connelly MD PCP - General Internal Medicine 11/11/22 05/01/23 Shaikh Connelly MD PCP - General Internal Medicine 05/02/23 09/23/23 Jose Chandler MD PCP - General Family Medicine 09/24/23 11/25/23 Unallocated, Timur Hernandez MD [address] [address] PCP - General Family Medicine 11/26/23 12/11/23 Jose Chandler MD PCP - General Family Medicine 12/12/23 Ijeoma Drake NP Nurse Practitioner Family Medicine 09/24/23 Za Wilkerson, RONALDO [address] [place] [address] Nurse Practitioner Neurology 04/21/24 Madhuri Banda DO [address] [place] [address] Referring Physician Neurology 04/21/24 documented as of this encounter
--- OUTSIDE RECORDS SUMMARY | 2024-11-30 07:40 | XMS_ITS | Encounter Summary ---
Author Organization [facility] Address [address] [place] [address] Care Team Providers Care Pst Supervisor Name Role Phone Shaikh BUNNY Connelly Primary Care Provider [phone] Shaikh BUNNY Connelly Primary Care Provider [phone] Jose Chandler MD Primary Care Provider [phone] Ijeoma Drake GLASS SELECTOR Unavailable Unallocated, Tim[facility] Provider Primary Care Provi shayna Jose Chandler MD Primary Care Provider [phone] Za Wilkerson GLASS SELECTOR Unavailable [phone] Madhuri Banda DO Unavailable [phone] Reason for Visit * Reason Comments Med Refill Encounter Details Date Type Department Care Team (Late st Contact Info) Description 03/05/2023 Refill [facility] [address] [place] [address] Shaikh Connelly MD [address] [place] [address] Gout, unspecified cause, unspecified chronicity, unspecified site [...] Dermatology [address] [place] [address] Elida Monroy MD [address] [place], [place] [address] 05/03/2025 1:00 PM EDT Office Visit [facility] [place] [facility] [address] [place] [address] Kasi Bennett MD [address] [place] [address] documented as of this encounter Visit Diagnoses Diagnosis Gout, unspecified cause, unspecified chronicity, unspecified site- Primary documented in this encounter Care Teams Pst Supervisor Relationship Specialty Start Date End Date Shaikh Connelly MD PCP - General Internal Medicine 11/11/22 05/01/23 Shaikh Connelly MD PCP - General Internal Medicine 05/02/23 09/23/23 Jose Chandler MD PCP - General Family Medicine 09/24/23 11/25/23 Unallocated, Timur Hernandez MD [address] [place] [address] PCP - General Family Medicine 11/26/23 12/11/23 Jose Chandler MD PCP - General Family Medicine 12/12/23 Ijeoma Drake NP Nurse Practitioner Family Medicine 09/24/23 Za Wilkerson NP [address] [place] [address] Nurse Practitioner Neurology 04/21/24 Madhuri Banda DO [address] [place] [address] Referring Physician Neurology 04/21/24 documented as of this encounter
--- OUTSIDE RECORDS SUMMARY | 2024-11-30 07:40 | XMS_ITS | Encounter Summary ---
Author Organization [facility] Address [address] [place] [address] Care Team Providers Care Android Ios Developer Name Role Phone Shaikh BUNNY Connelly Primary Care Provider [phone] Shaikh BUNNY Connelly Primary Care Provider [phone] Jose Chandler MD Primary Care Provider [phone] Ijeoma Drake HOSPICE HOME CARE COORDINATOR Unavailable [phone] Unallocated, Noms Provider Primary Care Provi shayna Jose Chandler MD Primary Care Provider [phone] Za Wilkerson HOSPICE HOME CARE COORDINATOR Unavailable [phone] Madhuri Banda DO Unavailable [phone] Encounter Details Date Type Department Care [...] Office Visit [facility] [address] [place] [address] Elida Monroy MD [address] [place] [address] 05/03/2025 1:00 PM EDT Office Visit [facility] [place] [facility] [address] [place] [id number] Kasi Bennett MD [address] [place] [address] documented as of this encounter Procedures Procedure Name Priority Date/Time Associated Diagnosis Comments XR HAND 3+ VIEWS LEFT 01/12/2023 5:22 AM EST documented in this encounter Results * XR hand 3+ views left (01/12/2023 5:22 AM EST) Anatomical Region Laterality Modality Upper Extremities, Hand Left Radiogra phic Imaging 01/12/2023 5:22 AM EST Narrative 01/12/2023 5:22 AM EST [place] [id number] XRay Report Signed Patient: KARINA WEIR MR#: [id number] : 1965 Acct:[id number] Age/Sex: 57 / F ADM Date: 01/10/23 Loc: PM Attending Dr: James Blanco NP Ordering Physician: James Blanco NP Date of Service: 01/10/23 Procedure(s): XR hand LT min 3V Accession Number(s): [id number] cc: Shaikh Erica Connelly; James Blanco NP [address] [address] Patient Name: KARINA WEIR MRN: [id number] date: 1965 Sex: F Assigned Patient Location: PM Current Patient Location: Accession/Order Number: [id number] Exam Date: 01/10/2023 12:18 Report Date: 01/12/2023 [...] M.D. Signed By: 01/12/23524 DD/ 1 TD/TT: Video Game Repair Technician: Procedure Note Radiology, Radiologist, MD - 01/14/2023 [place] [address] XRay Report Signed Patient: KARINA WEIR KMR#: [id number] : 1965Acct:[id number] Age/Sex: 57 / FADM Date: 01/10/23 Loc: PM Attending Dr: James Blanco NP Ordering Physician: James Blanco NP Date of Service: 01/10/23 Procedure(s): XR hand LT min 3V Accession Number(s): [id number] cc: Shaikh Erica Connelly; James Blanco NP The [place] [id number] Patient Name: KARINA WEIR MRN: [id number] date: 1965 Sex: F Assigned Patient Location: PM Current Patient Location: Accession/Order Number: [id number] Exam Date: 01/10/2023 12:18 Report Date: 01/12/2023 [...] Cortes M.D. Signed By:01/12/23524 DD/ 1 TD/TT: Video Game Repair Technician: Generic External Data Provider IMG XR PROCEDURES Final Result documented in this encounter Visit Diagnoses Not on filedocumented in this encounter Care Teams Android Ios Developer Relationship Specialty Start Date End Date Shaikh Connelly MD PCP - General Internal Medicine 11/11/22 05/01/23 Shaikh Connelly MD PCP - General Internal Medicine 05/02/23 09/23/23 Jose Chandler MD PCP - General Family Medicine 09/24/23 11/25/23 Unallocated, Noms MD David [address] [place], [place] [address] [address] PCP - General Family Medicine 11/26/23 12/11/23 Jose Chandler MD PCP - General Family Medicine 12/12/23 Ijeoma Drake NP Nurse Practitioner Family Medicine 09/24/23 Za Wilkerson NP [address] [place] [address] Nurse Practitioner Neurology 04/21/24 Madhuri Banda DO [address] [place] [address] Referring Physician Neurology 04/21/24 documented as of this encounter
--- OUTSIDE RECORDS SUMMARY | 2024-11-30 07:40 | XMS_ITS | Encounter Summary ---
Author Organization [facility] Address [address] [place] [place] [address] Care Team Providers Care Surveyor Hydrographic Name Role Phone Shaikh BUNNY Connelly Primary Care Provider [phone] Shaikh BUNNY Connelly Primary Care Provider [phone] Jose Chandler MD Primary Care Provider [phone] Ijeoma Drake TITLE CLERK Unavailable [phone] Unallocated, Noms Provider Primary Care Provi shayna Jose Chandler MD Primary Care Provider [phone] Za Wilkerson TITLE CLERK Unavailable [phone] Madhuri Banda DO Unavailable [phone] Encounter Details Date Type Department Care Team (Late st Contact Info) Description 02/06/2023 Abstract [facility] [address] [place] [address] Shaikh Connelly MD [address] [place] [address] Social History Tobacco Use Types Packs/Day Years [...] [address] [place] [address] Elida Monroy MD [address] [place] [address] 05/03/2025 1:00 PM EDT Office Visit [facility] [address] [place] [phone] Kasi Bennett MD [address], [address] [place] [address] documented as of this encounter Visit Diagnoses Not on filedocumented in this encounter Care Teams Surveyor Hydrographic Relationship Specialty Start Date End Date Shaikh Connelly MD PCP - General Internal Medicine 11/11/22 05/01/23 Shaikh Connelly MD PCP - General Internal Medicine 05/02/23 09/23/23 Jose Chandler MD PCP - General Family Medicine 09/24/23 11/25/23 Unallocated, Timur Hernandez MD [address] [place] [address] PCP - General Family Medicine 11/26/23 12/11/23 Jose Chandler MD PCP - General Family Medicine 12/12/23 Ijeoma Drake NP Nurse Practitioner Family Medicine 09/24/23 Za Wilkerson NP [address] [place] [address] Nurse Practitioner Neurology 04/21/24 Madhuri Banda DO [address] [place] [address] Referring Physician Neurology 04/21/24 documented as of this encounter
--- OUTSIDE RECORDS SUMMARY | 2024-11-30 07:40 | XMS_ITS | Clinical Summary ---
Author Organization [facility] Address [address], [address] [place] [address] Care Team Providers Care Field Artillery Basic Name Role Phone House Sr., Jonathan INGRAM [...] MORNING 06/05/2021 Active Lancets (ONETOUCH DELICA PLUS [id number]) [facility] USE TO TEST BLOOD SUGAR TWICE DAILY [...] = 0.6 oz pur e alcohol) occasional [employer] Util[employer] Answer Date Recorded In the past 12 months has e Zap[employer]ch, YUPIQ, oil, or water Aviir threatened to shut off services in your [...] any time in the past [address] [facility], were you homeless or living in a long-term (including now)? No 02/26/2024 Food Insecurity Answer [...] Description 03/03/2025 10:15 AM EST Office Visit [facility] Part of [address] [place] [address] Nikkie Barclay, CLOD PULLER - [address] [place] [address] Return in about 1 year [...] BILATERAL Routine 03/20/2023 Screening mammogram, encounter for NEW HOME SALES CONSULTANT CYTOLOGY Routine 08/30/2021 10:13 AM EDT from Last 3 Months or Most Recently Relevant to Health Maintenance Results * TOO BRANDON DIGITAL SCREEN BILATERAL (03/20/2023) Anatomical Region Laterality Modality Breast Bilateral Mammography Nikkie Barclay APRN - CNEverardo IMG MAMMOGRAPHY ORDERABLES Final Result * NEW HOME SALES CONSULTANT Cytology (08/30/2021 10:13 AM EDT) Cytology Report INTERPRETATION Vaginal material, (ThinPrep vial, Imaging-assisted review): Specimen Adequacy: Satisfactory for evaluation. Descriptive Diagnosis: Negative for intraepithelial lesion or malignancy. Animal Anatomist: CLARK Delacruz(ASCP) Electronically Signed Out 09/07/2021 Source: A: Vaginal material, (ThinPrep vial, Imaging-assisted review) Clinical History Hysterectomy Surgery: Salpingostomy; Ovary removal Z12.4 Encounter for screening for malignant neoplasm of cervix GYNECOLOGIC CYTOLOGY REPORT Patient Name: BRIAN WEIR Med Rec: [id number] Path Number: [id number] [facility] [employer] CONSULTING PATHOLOGISTS [facility] ANATOMIC PATHOLOGY [address] [place] [address] [facility] 08/30/2021 10:1 3 AM EDT 08/31/2021 10:13 AM EDT Nikkie Barclay APRN - CNEverardo PATHOLOGY/CYTOLO GY ORDERABLES Final Result [facility] [address] [place] [address], [facility] [phone] [phone] from Last 3 Months or Most Recently Relevant to Health Maintenance Insurance MED[employer]ARE [employer] Care Teams Field Artillery Basic Relationship Specialty Start Date End Date Jonathan Bean Sr., [address] [place] [address] PCP - General Family Medicine 08/30/21
--- OUTSIDE RECORDS SUMMARY | 2024-11-30 07:41 | XMS_ITS | Encounter Summary ---
Author Organization [facility] Address [address] [place] [address] Care Team Providers Care Clerical Office Name Role Phone Ijeoma Drake TARIFF PUBLISHING AGENT Unavailable [phone] Jose Chandler MD Primary Care Provider [phone] Za Wilkerson TARIFF PUBLISHING AGENT Unavailable [phone] Madhuri Banda DO Unavailable [phone] Encounter Details Date Type Department Care Team (Late st Contact Info) Description 09/22/2024 Abstract [facility] [address] [facility] [place] [address] Ameena Vera NP [address] [facility] [place] [address] Social History Tobacco Use Types Packs/Day Years [...] often do you attend chur ch or rastafarian services? Patient declined 10/02/2023 Do you belong [...] Recorded Patient Health Questionnaire-2 Score 0 10/03/2023 [facility] of Occupat ional Health - Occupational Stress [...] any time in the past 12 m [facility], were you homeless or living in [...] Dermatology [address] [place] [address] Elida Monroy MD [address] [place] [address] 05/03/2025 1:00 PM EDT Office Visit [facility] [address] [place] [address] Kasi Bennett MD [address] [place] [address] documented as of this encounter Visit Diagnoses Not on filedocumented in this encounter Care Teams Clerical Office Relationship Specialty Start Date End Date Jose Chandler MD PCP - General Family Medicine 12/12/23 Ijeoma Drake NP Nurse Practitioner Family Medicine 09/24/23 Za Wilkerson NP Nurse Practitioner Neurology 04/21/24 Madhuri Banda DO [address] [place] [address] Referring Physician Neurology 04/21/24 documented as of this encounter
--- OUTSIDE RECORDS SUMMARY | 2024-11-30 07:41 | XMS_ITS | Encounter Summary ---
Author Organization [facility] Address [address] [place] [address] Care Team Providers Care Sap Basis Consultant Name Role Phone Ijeoma Drake OBSTETRICS NURSE Unavailable [phone] Jose Chandler MD Primary Care Provider [phone] Za Wilkerson OBSTETRICS NURSE Unavailable [phone] Madhuri Banda DO Unavailable [phone] Encounter Details Date Type Department Care Team (Late st Contact Info) Description 09/21/2024 Abstract [facility] [address] [facility] [place] [address] Ameena Vera NP [address] [facility] [place] [address] Social History Tobacco Use Types Packs/Day Years [...] often do you attend chur ch or catholic services? Patient declined 10/02/2023 Do you belong [...] Patient Health Questionnaire-2 Score 0 10/03/2023 [facility] of Occupat ional Health - [...] any time in the past 12 m [facility], were you homeless or living in a halfway (including now)? Patient declined 10/02/2023 Comments Unknown [...] Dermatology [address] [place] [address] Elida Monroy MD [address] [place] [address] 05/03/2025 1:00 PM EDT Office Visit [facility] [address] [place] [address] Kasi Bennett MD [address] [place] [address] documented as of this encounter Visit Diagnoses Not on filedocumented in this encounter Care Teams Sap Basis Consultant Relationship Specialty Start Date End Date Jose Chandler MD PCP - General Family Medicine 12/12/23 Ijeoma Drake NP Nurse Practitioner Family Medicine 09/24/23 Za Wilkerson NP Nurse Practitioner Neurology 04/21/24 Madhuri Banda DO [address] [place] [address] Referring Physician Neurology 04/21/24 documented as of this encounter
--- OUTSIDE RECORDS SUMMARY | 2024-11-30 07:41 | XMS_ITS | Encounter Summary ---
Author Organization [facility] Address [address] [place] [address] Care Team Providers Care Drier Attendant Name Role Phone Ijeoma Drake SPINAL SURGEON Unavailable [phone] Jose Chandler MD Primary Care Provider [phone] Za Wilkerson SPINAL SURGEON Unavailable [phone] Madhuri Banda DO Unavailable [phone] Encounter Details Date Type Department Care Team (Late st Contact Info) Description 09/21/2024 Orders Only [facility] [address] [facility] [place] [address] Aramis Live MD [address] [place] [address] Social History Tobacco Use Types Packs/Day Years [...] week 10/02/2023 How often do you attend [facility] or religion services? Patient declined 10/02/2023 Do you belong to any clubs o r organizations such as judaism groups, unions, fraternal or athletic groups, or [...] Recorded Patient Health Questionnaire-2 Score 0 10/03/2023 [facility] of Occupat ional Health - [...] any time in the past 12 m [facility], were you homeless or living in a long-term (including now)? Patient declined 10/02/2023 Comments Unknown [...] Dermatology [address] [place] [address] Elida Monroy MD [address] [place] [address] 05/03/2025 1:00 PM EDT Office Visit [facility] [address] [place] [address] Kasi Bennett MD [address] [place] [address] documented as of this encounter [...] on filedocumented in this encounter Care Teams Drier Attendant Relationship Specialty Start Date End Date Jose Chandler MD PCP - General Family Medicine 12/12/23 Ijeoma Drake NP Nurse Practitioner Family Medicine 09/24/23 Za Wilkerson NP Nurse Practitioner Neurology 04/21/24 Madhuri Banda DO [address] [place] [address] Referring Physician Neurology 04/21/24 documented as of this encounter
--- OUTSIDE RECORDS SUMMARY | 2024-11-30 07:41 | XMS_ITS | Encounter Summary ---
Author Organization [facility] Address [address] [place] [address] Care Team Providers Care Holder Pile Driving Name Role Phone Ijeoma Drake CORRECTION WORKER Unavailable [phone] Jose Chandler MD Primary Care Provider [phone] Za Wilkerson CORRECTION WORKER Unavailable [phone] Madhuri Banda DO Unavailable [phone] Encounter Details Date Type Department Care Team (Late st Contact Info) Description 09/21/2024 Abstract [facility] [address] [facility] [address] Ameena Vera NP [address] [facility] [place] [address] Social History Tobacco Use Types Packs/Day Years [...] often do you attend chur ch or yazdanism services? Patient declined 10/02/2023 Do you belong to any clubs o r organizations such as taoist groups, unions, fraternal or athletic groups, or [...] any time in the past 12 m [facility], were you homeless or living in [...] Dermatology [address] [place] [address] Elida Monroy MD [address] [place] [address] 05/03/2025 1:00 PM EDT Office Visit [facility] [address] [place] [address] Kasi Bennett MD [address] [place] [address] documented as of this encounter Visit Diagnoses Not on filedocumented in this encounter Care Teams Holder Pile Driving Relationship Specialty Start Date End Date Jose Chandler MD PCP - General Family Medicine 12/12/23 Ijeoma Drake NP Nurse Practitioner Family Medicine 09/24/23 Za Wilkerson NP Nurse Practitioner Neurology 04/21/24 Madhuri Banda DO [address] [place] [address] Referring Physician Neurology 04/21/24 documented as of this encounter
--- OUTSIDE RECORDS SUMMARY | 2024-11-30 07:41 | XMS_ITS | Encounter Summary ---
Author Organization [facility] Address [address] [place] [place] [address] Care Team Providers Care Core Winder Name Role Phone Shaikh BUNNY Connelly Primary Care Provider [phone] Shaikh BUNNY Connelly Primary Care Provider [phone] Jose Chandler MD Primary Care Provider [phone] Ijeoma Drake DIRECTOR TELEMETRY Unavailable Unallocated, Timur Provider Primary Care Provi shayna Jose Chandler MD Primary Care Provider [phone] Za Wilkerson DIRECTOR TELEMETRY Unavailable [phone] Madhuri Banda DO Unavailable [phone] Encounter Details Date Type Department Care Team (Late st Contact Info) Description 03/05/2023 Abstract [facility] [address] [place] [address] Shaikh Connelly MD [address] [place] [address] Social History Tobacco Use Types Packs/Day Years [...] [address] [place] [address] Elida Monroy MD [address] [place] [address] 05/03/2025 1:00 PM EDT Office Visit [facility] [address] [place] [address] Kasi Bennett MD [address] [place] [address] documented as of this encounter Visit Diagnoses Not on filedocumented in this encounter Care Teams Core Winder Relationship Specialty Start Date End Date Shaikh Connelly MD PCP - General Internal Medicine 11/11/22 05/01/23 Shaikh Connelly MD PCP - General Internal Medicine 05/02/23 09/23/23 Jose Chandler MD PCP - General Family Medicine 09/24/23 11/25/23 Unallocated, Timur Hernandez MD [address] [place] [address] PCP - General Family Medicine 11/26/23 12/11/23 Jose Chandler MD PCP - General Family Medicine 12/12/23 Ijeoma Drake NP Nurse Practitioner Family Medicine 09/24/23 Za Wilkerson NP [address] [place] [address] Nurse Practitioner Neurology 04/21/24 Madhuri Banda DO [address] [place] [address] Referring Physician Neurology 04/21/24 documented as of this encounter
[2024-11-30 08:04] VITALS: BP 127/80; PULSE 90; TEMP 36.4; O2SAT 97
[2024-11-30] MEDS: 0.9 % SODIUM CHLORIDE 500 ML IV (08:09)
[2024-11-30] MEDS: BUPIVACAINE HCL 0.25% PF 25 MG/10 ML VIAL 4 ML INJ (08:40)
[2024-11-30] MEDS: LIDOCAINE HCL 2% 400 MG/20 ML MDV 16 ML INJ (08:40)
[2024-11-30] MEDS: METHYLPREDNISOLONE ACETATE 40 MG/ML VIAL 80 MG INJ (08:41)
[2024-11-30 08:50] VITALS: BP 102/69; PULSE 92; TEMP 36.5; O2SAT 94
--- NOTE | 2024-11-30 08:55 | P.ON_ITS ---
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 The site was marked.? Written informed consent was obtained and placed on the chart.? The patient was brought to the medical procedure unit and placed in the prone position.? A timeout was completed verifying correct patient, procedure, positioning, and special requirements.? The skin overlying the target points, the designated medial branch, were prepped and draped in the usual sterile fashion.? The target point was achieved with a 20-gauge 15 cm with a 10 mm curved active tip radiofrequency cannula under direct fluoroscopic visualizati on.? The needle was inserted at level L4 on the right side. Needle tip position was confirmed with lateral fluoroscopic position.? Motor stimulation was carried out at 2 Hz up to 5 volts with the absence of extremity activity.? This was repeated at level L5, S1 on right side.?? Sensory stimulation was carried out.? Concordant pain was realized at the above- mentioned sites.? Then radiofrequency lesioning was carried out times 90 seconds at 80 degrees times 2 lesions at each level.? The radiofrequency probe was removed prior to cannula removal.? The above-mentioned injectate was placed in 1 mL increments.? The needle was removed. The same procedure, with the same steps, was then completed on the left side at the same levels. Insertion sites were covered.? The patient was taken to the postoperative recovery area and monitored for an appropriate length of time before being found suitable for discharge in the company of a responsible adult. Anesthesia: MAC Surgeon: Tanya Crowley Pathology: none sent Condition: stable Disposition: no change
[2024-11-30 08:56] VITALS: BP 117/83; PULSE 92; TEMP 36.5; O2SAT 92
== END 2024-11-30 09:16 | disposition home or self-care (01) ==
PROVIDERS: PCP Nurse Practitioner; Visit Provider Anesthesiology
DX: M47.816 Spondylosis without myelopathy or radiculopathy, lumbar region (principal); M54.50 Low back pain, unspecified; E11.8 Type 2 diabetes mellitus with unspecified complications; Z79.85 Long-term (current) use of injectable non-insulin antidiabetic drugs; Z79.84 Long term (current) use of oral hypoglycemic drugs; M25.532 Pain in left wrist; M1A.09X0 Idiopathic chronic gout, multiple sites, without tophus (tophi)
CPT/HCPCS: 36415; 64635; 64636; 73110; 82948; 84550; 85652; J0665; J1010; J2704

== ENCOUNTER 2024-11-30 10:53 | Outpatient (OUT) | payer OTHER, MEDICARE, SELFPAY ==
--- OUTSIDE RECORDS SUMMARY | 2024-11-30 10:58 | XMS_ITS | CCD ---
Author Organization [facility] Care Team Providers Care Corporate Claims Examiner Name Role Phone House DO, Sr Jonathan [...] PIERCE ., CRYS Trimble Unavailable HOUSE, DR BASRUTO Primary Care Unavailable HALKER .JOSE Consulting Unavailable [...] Unavailable HOUSE, DR BASURTO Primary Care Unavailable [place], DR RYAN Guzman Consulting Unavailable HOUSE, DR [...] Maricel HOLLIS, Barrios Primary Care Provider Vidal CIGARETTE SELLER, Sonam Unavailable Jose Chandler MD Primary Care Provider Jose Chandler MD Primary Care Provider [phone] Vidal CIGARETTE SELLER, Sonam Unavailable Rock HIGGINS, Za Unavailable Sivan Banda DO Unavailable Lui Banks II Attending UnavailLui Alvarado II Admitting Unavailcurtis e NON STAFF Primary Care Unavailable NON STAFF Primary Care Provider UnavailLui Alvarado MD Attending Provider Rock HIGGINS, Za Unavailable Ameena Vera Primary Care Provider Ameena Vera Attending Provider Keo HOLLIS, Tanya Esposito Attending Unavailable Keo HOLLIS, Tanya Esposito Attending Unavailable Jose Chandler MD Primary Care Provider [phone] Za Wilkerson NP Unavailable SONAM DRAKE Attending SONAM Justin Attending [...] 30 tablet 11/04/2023 12/18/2023 Discontinued Continuous Glucose Assembly Line Robot Operator (Dexcom G7 Assembly Line Robot Operator) device (20 sources) Start: 03-03-2024 Continuous Glu cose Assembly Line Robot Operator (Dexcom G7 Assembly Line Robot Operator) device Indications: Type 2 diabetes mellitus with diabetic microalbuminuria, without long-term current use of insulin (HCC) 1 each continuously 1 each 03/03/2024 Active Start: 03-03-2024 Continuous Glu cose Assembly Line Robot Operator (Dexcom G7 Assembly Line Robot Operator) device Indications: Type 2 diabetes mellitus with diabetic microalbuminuria, without long-term current use of insulin (CMS/HCC) 1 each continuously 1 each 03/03/2024 Active Continuous Glucose Sensor (Dexcom G7 Sensor) misc (20 sources) Start: 08-05-2024 End: 09-04-2024 Continuous Glucose Sensor (D excom G7 Sensor) [facility] Indications: Type 2 diabetes mellitus with diabetic microalbuminuria, without long-term current use of insulin (HCC) 1 each continuously 3 each 11 08/05/2024 09/04/2024 Active Start: 03-30-2024 End: 08-05-2024 Continuous Glucose Sensor (D excom G7 Sensor) [facility] Indications: Type 2 diabetes mellitus with diabetic microalbuminuria, without long-term current use of insulin (HCC) 1 each continuously 3 each 11 03/30/2024 08/05/2024 Discontinued (Reorder) Start: 03-30-2024 Continuous Glu cose Sensor (Dexcom G7 Sensor) [facility] Indications: Type 2 diabetes mellitus with diabetic microalbuminuria, without long-term current use of insulin (HCC) 1 each continuously 3 each 03/30/2024 Active Start: 03-30-2024 Continuous Glu cose Sensor (Dexcom G7 Sensor) [facility] Indications: Type 2 diabetes mellitus with diabetic microalbuminuria, without long-term current use of insulin (CMS/HCC) 1 each continuously 3 each 03/30/2024 Active Start: 03-03-2024 End: 03-30-2024 Continuous Glucose Sensor (D excom G7 Sensor) [facility] Indications: Type 2 diabetes mellitus with diabetic microalbuminuria, without long-term current use of insulin (CMS/HCC) 1 each continuously 3 each 11 03/03/2024 03/30/2024 Discontinued (Reorder) Start: 03-03-2024 Continuous Glu cose Sensor (Dexcom G7 Sensor) [facility] Indications: Type 2 diabetes mellitus with diabetic [...] microalbuminuria, without long-term current use of insulin ([facility]/HCC) Inject 2 mg under the skin every [...] not crush, chew, or split. 0 Active Fkuzjsvlrdzb-Gp-Fggp-Mineral s (Multiple Vitamin, Womens) Tablet (4 sources) Start: 01-12-2017 End: 01-15-2017 Ygvtxrbmbazz-Pq-Dakr-Mineral s (Multiple Vitamin, Womens) Tablet Discontinued PO [...] (S/P/Bld) [Vol rate/Area] mL/min/{1.73_m2} >=60 mL/min/1.73m 2 [facility] - Chemistry and C hemistry - challengeOrdered By: Kasi Bennett on 10-26-2024 Albumin [Mass/Vol] 2.9 g/dL Low 3.4-5.0 [facility] Calcium [Mass/Vol] 8.7 mg/dL 8.7-10.3 [facility] Chloride [Moles/Vol] 106 mmol/L 98-107 [facility] CO2 [Moles/Vol] 27.8 mmol/L 21.0-32.0 [place] Creatinine [Mass/Vol] 0.87 mg/dL 0.55-1.02 [facility] GFR/1.73 sq M.predicted MDRD (S/P/Bld) [Vol rate/Area] mL/min/{1.73_m2} >=60 mL/min/1.73m 2 [facility] Glucose [Mass/Vol] 103 mg/dL 74-106 [facility] Magnesium [Mass/Vol] 1.4 mg/dL Low 1.8-2.4 [facility] Potassium [Moles/Vol] 4.4 mmol/L 3.5-5.1 [facility] Sodium [Moles/Vol] 142 mmol/L 136-145 [facility] Urea nitrogen [Mass/Vol] 22.0 mg/dL High 7.0-18.0 [facility] Urea nitrogen/Creatinine [Mass ratio] 25.3 mg/mg [facility] No Panel InformationOrdered By: Kasi Bennett on 10-26-2024 25-Hydroxy Vitamin D Total 80.4 ng/mL [facility] Comment on above: <20 ng/mL Vit D defi cient20-<30 ng/mL Vit D qszhytrwkayz38-651 ng/mL Vit D sufficient>100 ng/mL Potential Toxicity Miscellaneous Test Comment Comment . [facility] Comment on above: Interpretation Intac t PTH Calcium (pg/mL) (mg/dL)Normal 15 - 65 8.6 - 10.2Primary Hyperparathyroidism >65 >10.2Secondary Hyperparathyroidism >65 <10.2Non-Parathyroid Hypercalcemia <65 >10.2Hypoparathyroidism <15 < 8.6Non-Parathyroid Hypocalcemia 15 - 65 < 8.6Performed at: - [facility] [address] [id number] Director: Berto Gay PhD, Phone: [phone] Parathyroid Hormone (Intact) 30 pg/mL 15- [facility] Phosphorus Level 3.4 mg/dL 2.6-4.7 [place] Serum or plasma anion gap de terminationOrdered By: Kasi Bennett on 10-26-2024 Anion gap [Moles/Vol] 12.6 mmol/L [facility] HbA1c (Bld) [Mass fraction]o n 08-20-2024 Interpretation and review of laboratory results Abnormal [facility] - Hematology and Cell countson 08-20-2024 HbA1c (Bld) [Mass fraction] 6.4 % [facility] ALL BASIC METABOLIC PANELon 07-09-2024 Anion gap [Moles/Vol] 11.6 mmol/L [facility] Calcium [Mass/Vol] 9.3 mg/dL 8.5 - 10. [...] mmol/L [facility] TBH EGFR-NON AF SUDANESE >60 >=60 mL/min/1.73m 2 [facility] Urea nitrogen [Mass/Vol] 20 mg/dL High 7.0 - 18.0 mg/dL [facility] Urea nitrogen/Creatinine [Mass ratio] 23.3 mg/mg [facility] X-ray reportOrdered By: Anton Penny on 05-28-2024 Study report [facility] [address] [place] [address] XRay Report Signed Patient: Karina De Oliveira MR#: [id number] : 1965 Acct:[id number] Age/Sex: 58 / F ADM Date: 5 Loc: [facility] Room: Type: [facility] Attending Dr: Lui Banks II, MD Copies to: Lui Banks MD~ Ordering Provider: Lui Banks MD Date of Service: 05/28/24 XR/XR knee RT 4V*: M25.561 - Pain in right knee ([id number]) XR/XR pelvis 1-2V: M25.561 - Pain in [...] Penny Jr., D.OPasquale05/28/2024 3:24 PM Dictation Location: [place] [address] Transcribed By: [facility] 05/28/24 1524 Dictated By: Moustapha Penny Jr, DO 05/28/24 1523 Signed By: 05/28/24 1524 [facility] XR knee RT 4V*on 05-28-2024 XR knee RT 4V* [facility] [address] [place] [address] XRay Report Signed Patient: Karina De Oliveira MR#: [id number] : 1965 Acct:[id number] Age/Sex: 58 / F ADM Date: 05/28/24 Loc: SOXD Room: Type: [facility] Attending Dr: Lui Banks II, MD Copies to: Lui Banks MD Ordering Provider: Lui Banks MD Date of Service: 05/28/24 XR/XR knee RT 4V*: M25.561 - Pain in right knee ([id number]) XR/XR pelvis 1-2V: M25.561 - Pain in [...] Penny Jr., Romaine05/28/2024 3:24 PM Dictation Location: [place] [address] Transcribed By: [facility] 05/28/24 1524 Dictated By: Moustapha Penny Jr, DO 05/28/24 1523 Signed By: 05/28/24 1524 Normal [facility] ALL CBC WITH AUTO DIFFon BASOPHILS ABSOLUTE AUTO 0.1 [facility] Basophils/100 WBC (Bld) 0.5 % 0.2 - 2.0 % [facility] Eosinophils/100 WBC (Bld) 4 % 0.9 - 7.0 % [facility] Erythrocyte distribution width (RBC) [Ratio] 14.6 % 11.0 - 15.0 % [facility] Hematocrit (Bld) [Volume fraction] 41.6 % 36.0 - 48.0 % [facility] Hemoglobin (Bld) [Mass/Vol] 14.1 g/dL 12.0 - 16.0 g/dL [facility] IMMATURE GRANULOCYTES ABS AUTO 0.07 High [facility] Immature granulocytes/100 WBC (Bld) 0.6 % High 0.0 - 0.5 % [facility] Interpretation and review of laboratory results Abnormal [facility] LYMPHOCYTES ABSOLUTE AUTO 3.6 [facility] Lymphocytes/100 WBC (Bld) 32.6 % 20.5 - 60.0 % [facility] MCH (RBC) [Entitic mass] 32.3 pg 26.7 - 34.0 pg [facility] MCHC (RBC) [Mass/Vol] 33.9 g/dL 29.9 - 35.2 g/dL [facility] MCV (RBC) [Entitic vol] 95.2 fL 81.0 - 99.0 fL [facility] MONOCYTES ABSOLUTE AUTO 0.8 [facility] Monocytes/100 WBC (Bld) 6.9 % 1.7 - 12.0 % [facility] NEUTROPHILS ABSOLUTE AUTO 6.2 [facility] Neutrophils/100 WBC (Bld) 55.4 % 43.0 - 75.0 % [facility] Platelet mean volume (Bld) [Entitic vol] 10.7 fL 9.5 - 13.5 fL [facility] EO # 0.4 [facility] PLT 193 [facility] RBC 4.37 [facility] WBC 11.1 High [facility] XR Knee - right [address] [place] [address] XRay Report Signed Patient: KARINA DE OLIVEIRA MR#: [id number] : 1965 Acct:[id number] Age/Sex: 58 / F ADM Date: 05/21/24 Loc: LAB Attending Dr: Ameena Vera CIGARETTE SELLER Ordering Physician: Ameena Vera NP Date of Service: 05/21/24 Procedure(s): XR knee RT 3V Accession Number(s): [id number] cc: Ameena Vera NP [address] [address] Patient Name: KARINA DE OLIVEIRA MRN: [facility]:[id number] date: 1965 Sex: F Assigned Patient Location: LAB Current Patient Location: LAB Accession/Order Number: [id number] Exam Date: 05/21/2024 13:21 Report Date: 05/21/2024 13:21 At the request of: AMENEA J AICHHOLZ CIGARETTE SELLER Procedure: XR knee RT 3V RIGHT KNEE [...] Penny Jr., D.O.05/21/2024 1:21 PM Dictation Location: [place] [address] Electronically authenticated by: [id number] Y Date: 05/21/2024 13:21 Dictated By: Moustapha Penny M.D. Signed By: 05/21/24 1324 DD/ 132 TD/TT: Bag Presser: [facility] Radiology, Radiologist, MD - 05/21/2024 [place] [address] XRay Report Signed Patient: KARINA DE OLIVEIRA MR#: [id number] : 1965 Acct:[id number] Age/Sex: 58 / F ADM Date: 05/21/24 Loc: LAB Attending Dr: Ameena Vera NP Ordering Physician: Ameena Vera NP Date of Service: 05/21/24 Procedure(s): XR knee RT 3V Accession Number(s): [id number] cc: Ameena Vera NP [place] [id number] Patient Name: KARINA DE OLIVEIRA MRN: [facility]:[id number] date: 1965 Sex: F Assigned Patient Location: LAB Current Patient Location: LAB Accession/Order Number: [id number] Exam Date: 05/21/2024 13:21 Report Date: 05/21/2024 [...] Penny Jr., D.O.05/21/2024 1:21 PM Dictation Location: [place] [address] Electronically authenticated by: [id number] Y Date: 05/21/2024 13:21 Dictated By: Moustapha Penny M.D. Signed By: 05/21/24 1324 DD/ 1321 TD/TT: Bag Presser: [facility] Radiology Study observation (narrative) [facility] XR Knee - right 3 ViewsOrder ed By: Radiologist Radiology on 05-21-2024 [facility] Work Phone: HbA1c (Bld) [Mass fraction]o n 05-19-2024 Interpretation and review of laboratory results Abnormal [facility] - Hematology and Cell countson 05-19-2024 HbA1c (Bld) [Mass fraction] 6.70 % [facility] HbA1c (Bld) [Mass fraction]o n 03-30-2024 Interpretation and review of laboratory results Abnormal [facility] - Hematology and Cell countson 03-30-2024 HbA1c (Bld) [Mass fraction] 6.9 % [facility] MM TOMOSYNTHESIS SCREENING B Ion 03-18-2024 [place] [address] Mammography Report Signed Patient: KARINA DE OLIVEIRA MR#: [id number] : 1965 Acct:[id number] Age/Sex: 58 / F ADM Date: 03/18/24 Loc: MAMMO Attending Dr: RADHA BARCLAY Ordering Physician: RADHA BARCLAY Results: Date of Service: 03/18/24 Follow Up: Procedure(s): MM tomosynthesis screening BI Accession Number(s): [id number] cc: LOCO DRAKE SUSAN Patient Name: KARINA DE OLIVEIRA MR#: [id number] : 1965 Exam Date: 03/18/2024 Ordering Doctor: DR RADHA BARCLAY [facility] RADIOLOGY REPORT PROCEDURE: MM TOMOSYNTHESIS SCREENING [...] skin cancer at age 69. LOCATION: [facility] BREAST COMPOSITION: There are scattered areas [...] Signed By: 03/18/24 1454 DD/ 1454 TD/TT: Bag Presser: [facility] Radiology, Radiologist, MD - 03/18/2024 [place] [address] Mammography Report Signed Patient: KARINA DE OLIVEIRA MR#: [id number] : 1965 Acct:[id number] Age/Sex: 58 / F ADM Date: 03/18/24 Loc: MAMMO Attending Dr: RADHA BARCLAY Ordering Physician: RADHA BARCLAY Results: Date of Service: 03/18/24 Follow Up: Procedure(s): MM tomosynthesis screening BI Accession Number(s): [id number] cc: LOCO DRAKE SUSAN Patient Name: KARINA DE OLIVEIRA MR#: [id number] : 1965 Exam Date: 03/18/2024 Ordering Doctor: DR RADHA BARCLAY [facility] RADIOLOGY REPORT PROCEDURE: MM TOMOSYNTHESIS SCREENING [...] skin cancer at age 69. LOCATION: [facility] BREAST COMPOSITION: There are scattered areas [...] Signed By: 03/18/24 1454 DD/ 1454 TD/TT: Bag Presser: [facility] Radiology Study observation (narrative) [facility] MM TOMOSYNTHESIS SCREENING B IOrdered By: Radiologist Radiology on 03-18-2024 [facility] Work Phone: ALL CBC WITH AUTO DIFFon BASOPHILS ABSOLUTE AUTO 0.1 N [facility] Basophils/100 WBC (Bld) 0.4 [...] [facility] MONOCYTES ABSOLUTE AUTO 0.9 High N [facility] Monocytes/100 WBC (Bld) 7.4 % 1.7 - 12.0 % [facility] NEUTROPHILS ABSOLUTE AUTO 7.7 High [facility] Neutrophils/100 WBC (Bld) 60.6 % 43.0 - 75.0 % [facility] Platelet mean volume (Bld) [Entitic vol] 10.9 fL 9.5 - 13.5 fL [facility] EO # 0.4 [facility] PLT 219 [facility] RBC 4.43 [facility] WBC 12.8 High [facility] [...] PATTIE SALTER Date: 2022-06-07 11:15 Normal [facility] CBC AUTO DIFFon 04-12-2022 BASO # 0.1 103/ul Normal 0.0-0.1 [facility] Comment on above: Performed By: #### C BC ####[facility] [address] [place] [address]Dr. Ricky Valenzuela Basophils/100 WBC (Bld) 0.5 % Normal 0.2-2.0 [facility] Comment on above: Performed By: #### C BC ####[facility] Z[address] [place], [place] [address]Dr. Ricky Valenzuela EO # 0.3 103/ul Normal 0.0-0.7 [facility] Comment on above: Performed By: #### C BC ####[facility] [address] [place], [place] [address]Dr. Ricky Valenzuela Eosinophils/100 WBC (Bld) 3.0 % Normal 0.9-7.0 [facility] Comment on above: Performed By: #### C BC ####[facility] [address] [place], [place] [address]Dr. Ricky Valenzuela Erythrocyte distribution width (RBC) [Ratio] 14.8 % Normal 11.0-15.0 [facility] Comment on above: Performed By: #### C BC ####[facility] [address] [place], [place] [address]Dr. Ricky Valenzuela Hematocrit (Bld) [Volume fraction] 40.6 % Normal 36.0-48.0 [facility] Comment on above: Performed By: #### C BC ####[facility] [address] [place], [place] [address]Dr. Ricky Valenzuela Hemoglobin (Bld) [Mass/Vol] 13.5 g/dL Normal 12.0-16.0 [facility] Comment on above: Performed By: #### C BC ####[facility] [address] [place] [address]DrPasquale Suttonsharron Valenzuela IG # 0.16 10e3/ul Critically high 0.00-0.03 [facility] Comment on above: Performed By: #### C BC ####[facility] [address] [place] [address]DrPasquale Valenzuela IG % 1.4 % Critically high 0.0-0.5 [facility] Comment on above: Performed By: #### C BC ####[facility] [address] [place], [place] [address]DrPasquale Valenzuela LYMPH # 3.4 103/ul Normal 1.2-3.8 [facility] Comment on above: Performed By: #### C BC ####[facility] [address] [place], [place] [address]DrPasquale Valenzuela Lymphocytes/100 WBC (Bld) 30.4 % Normal 20.5-60.0 [facility] Comment on above: Performed By: #### C BC ####[facility] [address] [place], [place] [address]DrPasquale Lesleysharron Valenzuela MANUAL DIFF REQ NO Normal [facility] Comment on above: Performed By: #### C BC ####[facility] [address] [place] [address]DrPasquale Valenzuela MCH (RBC) [Entitic mass] 31.8 pg Normal 26.7-34.0 [facility] Comment on above: Performed By: #### C BC ####[facility] [address] [place], [place] [address]DrPasquale Valenzuela MCHC (RBC) [Mass/Vol] 33.3 g/dL Normal 29.9-35.2 [facility] Comment on above: Performed By: #### C BC ####[facility] Y[address] [place], [place] [address]DrPasquale Valenzuela MCV (RBC) [Entitic vol] 95.5 fL Normal 81.0-99.0 [facility] Comment on above: Performed By: #### C BC ####[facility] [address] [place] [address]DrPasquale Valenzuela MONO # 0.9 103/ul Critically high 0.3-0.8 [facility] Comment on above: Performed By: #### C BC ####[facility] [address] [place] [address]DrPasquale Valenzuela Monocytes/100 WBC (Bld) 7.7 % Normal 1.7-12.0 [facility] Comment on above: Performed By: #### C BC ####[facility] [address] [place], [place] [address]Dr. Ricky Valenzuela NEUT # 6.3 103/ul Normal 1.4-6.5 [facility] Comment on above: Performed By: #### C BC ####[facility] [address] [place], [place] [address]Dr. Ricky Valenzuela Neutrophils/100 WBC (Bld) 57.0 % Normal 43.0-75.0 [facility] Comment on above: Performed By: #### C BC ####[facility] [address] [place], [place] [address]DrPasquale Valenzuela Platelet mean volume (Bld) [Entitic vol] 9.8 fL Normal 9.5-13.5 [facility] Comment on above: Performed By: #### C BC ####[facility] [address] [place], [place] [address]Dr. Ricky Valenzuela PLT 246 103/ul Normal 150-450 [facility] Comment on above: Performed By: #### C BC ####[facility] [address] [place], [place] [address]Dr. Ricky Valenzuela RBC 4.25 106/ul Normal 4.20-5.40 [facility] Comment on above: Performed By: #### C BC ####[facility] [address] [place], [place] [address]DrPasquale Valenzuela WBC 11.1 103/ul Critically high 4.0-11.0 [facility] Comment on above: Performed By: #### C BC ####[facility] [address] [place] [address]DrPasquale Valenzuela GLYCOHEMOGLOBIN A1Con 2022 ADA RECOMMENDATION SEE BELOW Normal [facility] Comment on above: Result Comment: ADA RECOMMENDED LIMIT 4.0 - 6.0 ADA THERAPEUTIC TARGET < 7.0 ACTION SUGGESTED > 7.0 Performed By: #### A 1C ####[facility] [address] [place] [address]DrPasquale Valenzuela Glucose [Mass/Vol] 160 mg/dL Normal [facility] Comment on above: Performed By: #### A 1C ####[facility] [address] [place] [address]DrPasquale Valenzuela HbA1c (Bld) [Mass fraction] 7.2 % Critically high 4.5-6.2 [facility] Comment on above: Performed By: #### A 1C ####[facility] [address] [place] [address]DrPasquale Valenzuela MICROALBUMIN, RAND URon mALB <1.3 Normal <=30.0 [facility] Comment on above: Performed By: #### M ALBR #### [facility] [address] [place] [address] [address] Ricky Valenzuela PROF 14(COMP METB)on 023 Albumin [Mass/Vol] 3.3 g/dL Critically low 3.4-5.0 [facility] Comment on above: Performed By: #### C MP #### [facility] [address] [place] [address] [address] Ricky Valenzuela Albumin/Globulin [Mass ratio] 0.9 {ratio} Normal [facility] Comment on above: Performed By: #### C MP #### [facility] [address] [place] [address] [address] Ricky Valenzuela ALP [Catalytic activity/Vol] 90 U/L Normal 46-116 [facility] Comment on above: Performed By: #### C MP #### [facility] [address] [place] [address] [address] Ricky Valenzuela ALT [Catalytic activity/Vol] 42 U/L Normal 14-59 [facility] Comment on above: Performed By: #### C MP #### [facility] [address] [place] [address] [address] Ricky Valenzuela Anion gap [Moles/Vol] 10.1 mmol/L Normal Th [facility] Comment on above: Performed By: #### C MP #### [facility] [address] [place] [address] [address] Ricky Valenzuela AST [Catalytic activity/Vol] 21 U/L Normal 15-37 [facility] Comment on above: Performed By: #### C MP #### [facility] [address] [place] [address] Dr. Ricky Valenzuela Bilirubin [Mass/Vol] 0.3 mg/dL Normal 0.2-1.0 [facility] Comment on above: Performed By: #### C MP #### [facility] [address] [place] [address] [address] Ricky Valenzuela Calcium [Mass/Vol] 9.8 mg/dL Normal 8.5-10.1 [facility] Comment on above: Performed By: #### C MP #### [facility] [address] [place] [address] Dr. Ricky Valenzuela Chloride [Moles/Vol] 99 mmol/L Normal 98-107 [facility] Comment on above: Performed By: #### C MP #### [facility] [address] [place] [address] [address] Ricky Valenzuela CO2 [Moles/Vol] 33.7 mmol/L Critically high 21.0-32.0 [facility] Comment on above: Performed By: #### C MP #### [facility] [address] [place] [address] [address] Ricky Valenzuela Creatinine [Mass/Vol] 0.94 mg/dL Normal 0.55-1.02 [facility] Comment on above: Performed By: #### C MP #### [facility] [address] [place] [address] [address] Ricky Valenzuela EGFR-AF SUDANESE >60 Normal >=60 [facility] Comment on above: Performed By: #### C MP #### [facility] [address] [place] [address] [address] Ricky Valenzuela EGFR-NON AF SUDANESE >60 Normal >=60 [facility] Comment on above: Performed By: #### C MP #### [facility] [address] [place] [address] [address] Ricky Valenzuela Globulin (S) [Mass/Vol] 3.8 g/dL Normal [facility] Comment on above: Performed By: #### C MP #### [facility] [address] [place] [address] Dr. Ricky Valenzuela Glucose [Mass/Vol] 168 mg/dL Critically high 74-106 [facility] Comment on above: Performed By: #### C MP #### [facility] [address] [place] [address] Dr. Ricky Valenzuela Potassium [Moles/Vol] 4.8 mmol/L Normal 3.5-5.1 [facility] Comment on above: Performed By: #### C MP #### [facility] [address] [place] [address] Dr. Ricky Valenzuela Protein [Mass/Vol] 7.1 g/dL Normal 6.4-8.2 [facility] Comment on above: Performed By: #### C MP #### [facility] [address] [place] [address] Dr. Ricky Valenzuela Sodium [Moles/Vol] 138 mmol/L Normal 136-145 [facility] Comment on above: Performed By: #### C MP #### [facility] [address] [address] [address] Ricky Valenzuela Urea nitrogen [Mass/Vol] 22.0 mg/dL Critically high 7.0-18.0 [facility] Comment on above: Performed By: #### C MP #### [facility] [address] [address] [address] Ricky Valenzuela Urea nitrogen/Creatinine [Mass ratio] 23.4 mg/mg Normal [facility] Comment on above: Performed By: #### C MP #### [facility] [id number] Ricky Valenzuela Cytologyon 08-30-2021 Cytology (NOTE) INTERPRETATION Vaginal material, (ThinPrep vial, Imaging-assisted review): Specimen Adequacy: Satisfactory for evaluation. Descriptive Diagnosis: Negative for intraepithelial lesion or malignancy. Calender Feeder: CLARK Delacruz(ASCP) Electronically Signed Out zackary/09/07/2021 Source: A: Vaginal material, (ThinPrep vial, Imaging-assisted review) Clinical History Hysterectomy Surgery: Salpingostomy; Ovary removal Z12.4 Encounter for screening for malignant neoplasm of cervix GYNECOLOGIC CYTOLOGY REPORT Patient Name: [facility] Rec: [id number] Path Number: [id number] [facility] CONSULTING PATHOLOGISTS [facility] [place] ANATOMIC PATHOLOGY [address] [place] [id number] Normal [facility] Comment on above: Performed By: #### P PPVP #### [address] [id number] Power Transformer Repairer: Luca Cummins MD CBC AUTO DIFFon 08-09-2021 BASO # 0.1 103/ul Normal 0.0-0.1 [facility] Comment on above: Performed By: #### C BC #### [facility] [address] [place] [address] Dr. Ricky Valenzuela Basophils/100 WBC (Bld) 0.8 % Normal 0.2-2.0 [facility] Comment on above: Performed By: #### C BC #### [facility] [address] [place], [place] [id number] Dr. Ricky Valenzuela EO # 0.2 103/ul Normal 0.0-0.7 [facility] Comment on above: Performed By: #### C BC #### [facility] [address] [place] [address] Dr. Ricky Valenzuela Eosinophils/100 WBC (Bld) 2.1 % Normal 0.9-7.0 [facility] Comment on above: Performed By: #### C BC #### [facility] [address] [place] [address] Dr. Ricky Valenzuela Erythrocyte distribution width (RBC) [Ratio] 15.2 % Critically high 11.0-15.0 [facility] Comment on above: Performed By: #### C BC #### [facility] [address] [place] [address] Dr. Ricky Valenzuela Hematocrit (Bld) [Volume fraction] 41.5 % Normal 36.0-48.0 [facility] Comment on above: Performed By: #### C BC #### [facility] [address] [place] [address] Dr. Ricky Valenzuela Hemoglobin (Bld) [Mass/Vol] 13.5 g/dL Normal 12.0-16.0 [facility] Comment on above: Performed By: #### C BC #### [facility] [address] [place] [address] Dr. Ricky Valenzuela IG # 0.42 10e3/ul Critically high 0.00-0.03 [facility] Comment on above: Performed By: #### C BC #### [facility] [address] [place] [address] Dr. Ricky Valenzuela IG % 3.8 % Critically high 0.0-0.5 [facility] Comment on above: Performed By: #### C BC #### [facility] [address] [place] [address] Dr. Ricky Valenzuela LYMPH # 3.3 103/ul Normal 1.2-3.8 [facility] Comment on above: Performed By: #### C BC #### [facility] [address] [place] [address] Dr. Ricky Valenzuela Lymphocytes/100 WBC (Bld) 29.1 % Normal 20.5-60.0 [facility] Comment on above: Performed By: #### C BC #### [facility] [address] [place] [address] Dr. Ricky Valenzuela MANUAL DIFF REQ NO Normal [facility] Comment on above: Performed By: #### C BC #### [facility] [address] [address] [address] Ricky Valenzuela MCH (RBC) [Entitic mass] 32.4 pg Normal 26.7-34.0 [facility] Comment on above: Performed By: #### C BC #### [facility] [address] [address] [address] Ricky Valenzuela MCHC (RBC) [Mass/Vol] 32.5 g/dL Normal 29.9-35.2 [facility] Comment on above: Performed By: #### C BC #### [facility] [address] [place] [address] Dr. Ricky Valenzuela MCV (RBC) [Entitic vol] 99.5 fL Critically high 81.0-99 .0 [facility] Comment on above: Performed By: #### C BC #### [facility] [address] [place] [address] Dr. Ricky Valenzuela MONO # 0.8 103/ul Normal 0.3-0.8 [facility] Comment on above: Performed By: #### C BC #### [facility] [address] [place] [address] Dr. Ricky Valenzuela Monocytes/100 WBC (Bld) 7.5 % Normal 1.7-12.0 [facility] Comment on above: Performed By: #### C BC #### [facility] [address] [place] [address] Dr. Ricky Valenzuela NEUT # 6.3 103/ul Normal 1.4-6.5 [facility] Comment on above: Performed By: #### C BC #### [facility] [address] [place] [address] Dr. Ricky Valenzuela Neutrophils/100 WBC (Bld) 56.7 % Normal 43.0-75.0 [facility] Comment on above: Performed By: #### C BC #### [facility] [address] [place] [address] Dr. Ricky Valenzuela Platelet mean volume (Bld) [Entitic vol] 9.8 fL Normal 9.5-13.5 [facility] Comment on above: Performed By: #### C BC #### [facility] [address] [address] [address] Ricky Valenzuela PLT 265 103/ul Normal 150-450 [facility] Comment on above: Performed By: #### C BC #### [facility] [address] [place], [place] [address] Dr. Ricky Valenzuela RBC 4.17 106/ul Critically low 4.20-5.40 [facility] Comment on above: Performed By: #### C BC #### [facility] [address] [address] [address] Ricky Valenzuela WBC 11.2 103/ul Critically high 4.0-11.0 [facility] Comment on above: Performed By: #### C BC #### [facility] [address] [address] [address] Ricky Valenzuela GLYCOHEMOGLOBIN A1Con 2021 ADA RECOMMENDATION SEE BELOW Normal [facility] Comment on above: Result Comment: ADA RECOMMENDED LIMIT 4.0 - 6.0 ADA THERAPEUTIC TARGET < 7.0 ACTION SUGGESTED > 7.0 Performed By: #### A 1C ####[facility] [id number] [address]Dr. Ricky Valenzuela Glucose [Mass/Vol] 183 mg/dL Normal [facility] Comment on above: Performed By: #### A 1C ####[facility] [id number] [id number][address] Ricky Valenzuela HbA1c (Bld) [Mass fraction] 8.0 % Critically high 4.5-6.2 [facility] Comment on above: Performed By: #### A 1C ####[facility] [id number] [id number]. Ricky Valenzuela LIPID PROFILEon 08-09-2021 CHOL-HDL RATIO NORM SEE BELOW Normal [facility] Comment on above: Result Comment: 3.3 - 4.4 LOW RISK 4.4 - 7.1 AVERAGE RISK 7.1 - 11.0 MODERATE RISK >11.0 HIGH RISK Performed By: #### C MP, LIPID #### [facility] [address] [address] [address] Ricky Valenzuela Cholesterol [Mass/Vol] 239 mg/dL Critically high <=200 [facility] Comment on above: Performed By: #### C MP, LIPID #### [facility] [address] [address] [address] Ricky Valenzuela Cholesterol in HDL [Mass/Vol] 36 mg/dL Critically low 40-60 [facility] Comment on above: Performed By: #### C MP, LIPID #### [facility] [address] [address] [address] Ricky Valenzuela Cholesterol in LDL [Mass/Vol] 164.2 mg/dL Normal [facility] Comment on above: Performed By: #### C MP, LIPID #### [facility] [address] [address] [address] Ricky Valenzuela Cholesterol.total/Myriam sterol in HDL [Mass ratio] 6.6 {ratio} Normal [facility] Comment on above: Performed By: #### C MP, LIPID #### [facility] [address] [address] [address] Ricky Valenzuela HDL NORMAL > or = 60 mg/dl - LO W CARDIOVASCULAR RISK <40 mg/dl - HIGH CARDIOVASCULAR RISK Normal [facility] Comment on above: Performed By: #### C MP, LIPID #### [facility] [address] [address] [address] Ricky Valenzuela LDL CALC NORMAL SEE BELOW Normal [facility] Comment on above: Result Comment: <100 mg/dl OPTIMAL 100 - 129 mg/dl NEAR OR ABOVE OPTIMAL 130 - 159 mg/dl BORDERLINE HIGH 160 - 189 mg/dl HIGH >190 mg/dl VERY HIGH Performed By: #### C MP, LIPID #### [facility] [address] [address] [address] Ricky Valenzuela Triglyceride [Mass/Vol] 194 mg/dL Critically high <=150 [facility] Comment on above: Performed By: #### C MP, LIPID #### [facility] [address] [address] [address] Ricky Valenzuela VLDL CALC 38.8 mg/dL Normal [facility] Comment on above: Performed By: #### C MP, LIPID #### [facility] [address] [address] [address] Ricky Valenzuela MICROALBUMIN, RAND URon 07-13 mALB 13.1 mg/L Normal <=30.0 [facility] Comment on above: Performed By: #### M ALBR ####[facility] [id number] [address]Dr. Ricky Valenzuela PROF 14(COMP METB)on 022 Albumin [Mass/Vol] 3.3 g/dL Critically low 3.4-5.0 [facility] Comment on above: Performed By: #### C MP, LIPID #### [facility] [address] [place] [address] Dr. Ricky Valenzuela Albumin/Globulin [Mass ratio] 0.8 {ratio} Normal [facility] Comment on above: Performed By: #### C MP, LIPID #### [facility] [address] [place] [address] Dr. Ricky Valenzuela ALP [Catalytic activity/Vol] 93 U/L Normal 46-116 [facility] Comment on above: Performed By: #### C MP, LIPID #### [facility] [address] [place] [address] Dr. Ricky Valenzuela ALT [Catalytic activity/Vol] 37 U/L Normal 14-59 [facility] Comment on above: Performed By: #### C MP, LIPID #### [facility] [address] [place] [address] Dr. Ricky Valenzuela Anion gap [Moles/Vol] 10.9 mmol/L Normal [facility] Comment on above: Performed By: #### C MP, LIPID #### [facility] [address] [place] [address] Dr. Ricky Valenzuela AST [Catalytic activity/Vol] 10 U/L Critically low 15-37 [facility] Comment on above: Performed By: #### C MP, LIPID #### [facility] [address] [place] [address] Dr. Ricky Valenzuela Bilirubin [Mass/Vol] 0.2 mg/dL Normal 0.2-1.0 [facility] Comment on above: Performed By: #### C MP, LIPID #### [facility] [address] [place] [address] Dr. Ricky Valenzuela Calcium [Mass/Vol] 9.0 mg/dL Normal 8.5-10.1 [facility] Comment on above: Performed By: #### C MP, LIPID #### [facility] [address] [place] [address] Dr. Ricky Valenzuela Chloride [Moles/Vol] 100 mmol/L Normal 98-107 [facility] Comment on above: Performed By: #### C MP, LIPID #### [facility] [address] [place] [address] Dr. Ricky Valenzuela CO2 [Moles/Vol] 32.2 mmol/L Critically high 21.0-32.0 [facility] Comment on above: Performed By: #### C MP, LIPID #### [facility] [address] [place] [address] Dr. Ricky Valenzuela Creatinine [Mass/Vol] 0.95 mg/dL Normal 0.55-1.02 [facility] Comment on above: Performed By: #### C MP, LIPID #### [facility] [address] [place] [address] Dr. Ricky Valenzuela EGFR-AF SUDANESE >60 Normal >=60 [facility] Comment on above: Performed By: #### C MP, LIPID #### [facility] [address] [place] [address] Dr. Ricky Valenzuela EGFR-NON AF SUDANESE >60 Normal >=60 [facility] Comment on above: Performed By: #### C MP, LIPID #### [facility] [address] [place] [address] Dr. Ricky Valenzuela Globulin (S) [Mass/Vol] 4.2 g/dL Normal T [facility] Comment on above: Performed By: #### C MP, LIPID #### [facility] [address] [place] [address] Dr. Ricky Valenzuela Glucose [Mass/Vol] 200 mg/dL Critically high 74-106 [facility] Comment on above: Performed By: #### C MP, LIPID #### [facility] [address] [place] [address] Dr. Ricky Valenzuela Potassium [Moles/Vol] 4.1 mmol/L Normal 3.5-5.1 [facility] Comment on above: Performed By: #### C MP, LIPID #### [facility] [address] [place] [address] Dr. Ricky Valenzuela Protein [Mass/Vol] 7.5 g/dL Normal 6.4-8.2 [facility] Comment on above: Performed By: #### C MP, LIPID #### [facility] [address] [place] [address] Dr. Ricky Valenzuela Sodium [Moles/Vol] 139 mmol/L Normal 136-145 [facility] Comment on above: Performed By: #### C MP, LIPID #### [facility] [address] [place] [address] Dr. Ricky Valenzuela Urea nitrogen [Mass/Vol] 13.0 mg/dL Normal 7.0-18.0 [facility] Comment on above: Performed By: #### C MP, LIPID #### [facility] [address] [place] [address] Dr. Ricky Valenzuela Urea nitrogen/Creatinine [Mass ratio] 13.7 mg/mg Normal [facility] Comment on above: Performed By: #### C MP, LIPID #### [facility] [address] [place] [address] Dr. Ricky Valenzuela POINT OF CARE GLUCOSEon 05- Glucose [Mass/Vol] 176 mg/dL Critically high 74-106 [facility] Comment on above: Performed By: #### P OCGLUC #### [facility] [address] [place] [address] Dr. Ricky Valenzuela Vital Signs Date Time Vital Sign Value Performing Clinician Facility 11-23-2024 13:07-0400 Body height 154.94 cm Ameena Vera [employer] Work Phone: [facility] 11-23-2024 13:07-0400 Body mass index (BMI) [Ratio] 39.9 kg/m2 Ameena Pohholz [employer] Work Phone: [facility] 11-23-2024 13:07-0400 Body temperature 98.3 [degF] Ameena Pohholz [employer]AR[employer] SE[employer]C Work Phone: [facility] 11-23-2024 13:07-0400 Body weight 95.76 kg Ameena Aichholz [employer] Work Phone: [facility] 11-23-2024 13:07-0400 Diastolic blood pressure 62 mm[Hg] Ameena Aichholz [employer]C Work Phone: [facility] 11-23-2024 13:07-0400 Heart rate 105 /min Ameena Aichholz [employer] Work Phone: [facility] 11-23-2024 13:07-0400 Respiratory rate 18 /min Ameena Aichholz [employer] Work Phone: [facility] 11-23-2024 13:07-0400 SaO2% (BldA) [Mass fraction] 92 % Ameena Aichholz [employer] Work Phone: [facility] 11-23-2024 13:07-0400 Systolic blood pressure 108 mm[Hg] Ameena Pohholz [employer]C Work Phone: [facility] 11-02-2024 09:56-0400 Body height 152.4 cm Kasi Bennett MD Work Phone: [facility] 11-02-2024 09:56-0400 Body mass index (BMI) [Ratio] 40.62 kg/m2 Kasi Bennett MD Work Phone: [facility] 11-02-2024 09:56-0400 Body weight 94.35 kg Kasi Bennett MD Work Phone: [facility] 11-02-2024 09:56-0400 Heart rate 83 /min Kasi Bennett MD Work Phone: [facility] 11-02-2024 09:56-0400 Respiratory rate 18 /min Kasi Bennett MD Work Phone: [facility] 11-02-2024 09:56-0400 SaO2% (BldA) [Mass fraction] 95 % Kasi Bennett MD Work Phone: [facility] 10-19-2024 11:44-0400 Body temperature 98.1 [degF] Ameena Aichholz Work Phone: [facility] 10-19-2024 11:44-0400 Body weight 96.41 kg Ameena Aichholz Work Phone: [facility] 10-19-2024 11:44-0400 Diastolic blood pressure 78 mm[Hg] Ameena Aichholz Work Phone: [facility] 10-19-2024 11:44-0400 Heart rate 93 /min Ameena Aichholz Work Phone: [facility] 10-19-2024 11:44-0400 Respiratory rate 16 /min Ameena Aichholz Work Phone: [facility] 10-19-2024 11:44-0400 SaO2% (BldA) [Mass fraction] 97 % Ameena Aichholz Work Phone: [facility] 10-19-2024 11:44-0400 Systolic blood pressure 138 mm[Hg] Ameena Aichholz Work Phone: [facility] 08-20-2024 11:10-0400 Diastolic blood pressure 58 mm[Hg] Ameena Aichholz CIGARET[employer] SELLER Work Phone: [facility] 08-20-2024 11:10-0400 Systolic blood pressure 90 mm[Hg] Ameena Aichholz [employer]IGARET[employer] SELLER Work Phone: [facility] 08-20-2024 10:37-0400 Body mass index (BMI) [Ratio] 39.74 kg/m2 Ameena Vera C[employer]ARET[employer] SELLER Work Phone: [facility] 08-20-2024 10:37-0400 Body temperature 98.49 [degF] Ameena Vera CIGARET[employer] SELLER Work Phone: [facility] 08-20-2024 10:37-0400 Body weight 96.98 kg Ameena Vera CIGARET[employer] SELLER Work Phone: [facility] 08-20-2024 10:37-0400 Heart rate 101 /min Ameena Vera CIGARET[employer] SELLER Work Phone: [facility] 08-20-2024 10:37-0400 Respiratory rate 18 /min Ameena Vera CIGARET[employer] SELLER Work Phone: [facility] 08-20-2024 10:37-0400 SaO2% (BldA) [Mass fraction] 93 % Ameena Vera CIGARET[employer] SELLER Work Phone: [facility] 07-29-2024 14:08-0400 [...] Healthcare 05-28-2024 13:16-0400 Body height 154.94 cm [facility] 05-28-2024 13:16-0400 Body mass index (BMI) [Ratio] 39.4 kg/m2 [facility] 05-28-2024 13:16-0400 Body weight 94.8 kg [facility] 05-19-2024 11:10-0400 Body height 157.5 cm Ameenaovidio Vera [employer]AR[employer] SELLER Work Phone: [facility] 05-19-2024 11:10-0400 Body mass index (BMI) [Ratio] 39.03 kg/m2 Ameena Nettiez [employer]AR[employer] SE[employer]ER Work Phone: [facility] 05-19-2024 11:10-0400 Body temperature 98.29 [degF] Ameena Nettiez [employer]IGARET[employer] SELLER Work Phone: [facility] 05-19-2024 11:10-0400 Body weight 96.8 kg Ameena Nettiez [employer]IGARET[employer] SELLER Work Phone: [facility] 05-19-2024 11:10-0400 Diastolic blood pressure 80 mm[Hg] Ameena Nettiez [employer]IGARET[employer] SELLER Work Phone: [facility] 05-19-2024 11:10-0400 Heart rate 91 /min Ameena Nettiez [employer]IGARET[employer] SELLER Work Phone: [facility] 05-19-2024 11:10-0400 Respiratory rate 18 /min Ameena Nettiez [employer]IGARET[employer] SELLER Work Phone: [facility] 05-19-2024 11:10-0400 SaO2% (BldA) [Mass fraction] 96 % Ameena Aichholz [employer]IGAR[employer] SELLER Work Phone: [facility] 05-19-2024 11:10-0400 Systolic blood pressure 116 mm[Hg] Ameena Davislorie [employer]ARET[employer] SELLER Work Phone: [facility] 04-21-2024 13:08-0400 Body height 157.5 cm Za Villelamor CIGARETTE SELLER Work Phone: [facility] 04-21-2024 13:08-0400 Body mass index (BMI) [Ratio] 39.51 kg/m2 Za Villelamor CIGARETTE SELLER Work Phone: [facility] 04-21-2024 13:08-0400 Body weight 97.98 kg Za Gillmor CIGARET[employer] SELLER Work Phone: [facility] 04-21-2024 13:08-0400 Diastolic blood pressure 86 mm[Hg] Za Villelamor CIGARETTE SELLER Work Phone: [facility] 04-21-2024 13:08-0400 Heart rate 96 /min Za Villelamor CIGARETTE SELLER Work Phone: [facility] 04-21-2024 13:08-0400 SaO2% (BldA) [Mass fraction] 93 % Za Villelamor CIGARETTE SELLER Work Phone: [facility] 04-21-2024 13:08-0400 Systolic blood pressure 148 mm[Hg] Za Villelamor CIGARETTE SELLER Work Phone: [facility] 03-30-2024 09:40-0500 Body height 157.5 cm Sonam Drake [employer]ER Work Phone: [facility] 03-30-2024 09:40-0500 Body mass index (BMI) [Ratio] 39.51 kg/m2 Sonam Drake [employer] SE[employer]ER Work Phone: [facility] 03-30-2024 09:40-0500 Body temperature 97.3 [degF] Sonam Drake [employer] SELLER Work Phone: [facility] 03-30-2024 09:40-0500 Body weight 97.98 kg Sonam Drake [employer]IG[employer] SELLER Work Phone: [facility] 03-30-2024 09:40-0500 Diastolic blood pressure 74 mm[Hg] Sonam Drake [employer] SE[employer]ER Work Phone: [facility] 03-30-2024 09:40-0500 Heart rate 76 /min Sonam Drake [employer] SE[employer]ER Work Phone: [facility] 03-30-2024 09:40-0500 Respiratory rate 16 /min Sonam Drake [employer] SELLER Work Phone: [facility] 03-30-2024 09:40-0500 SaO2% (BldA) [Mass fraction] 98 % Sonam Drake [employer]ER Work Phone: [facility] 03-30-2024 09:40-0500 Systolic blood pressure 130 mm[Hg] Sonam Drake [employer]IG[employer] SELLER Work Phone: [facility] 03-03-2024 10:13-0500 Body height 157.5 cm Sonam Drake [employer] SE[employer]ER Work Phone: [facility] 03-03-2024 10:13-0500 Body mass index (BMI) [Ratio] 39.51 kg/m2 Sonam Drake [employer]ER Work Phone: [facility] 03-03-2024 10:13-0500 Body temperature 97.2 [degF] Sonam Drake C[employer] SELLER Work Phone: [facility] 03-03-2024 10:13-0500 Body weight 97.98 kg Sonam Drake [employer]IG[employer]ER Work Phone: [facility] 03-03-2024 10:13-0500 Diastolic blood pressure 76 mm[Hg] Sonam Drake [employer] SE[employer]ER Work Phone: [facility] 03-03-2024 10:13-0500 Heart rate 84 /min Sonam Drake [employer] SE[employer]ER Work Phone: [facility] 03-03-2024 10:13-0500 Respiratory rate 16 /min Sonam Riverpatrick [employer] SELLER Work Phone: [facility] 03-03-2024 10:13-0500 SaO2% (BldA) [Mass fraction] 96 % Sonam Drake [employer] SELLER Work Phone: [facility] 03-03-2024 10:13-0500 Systolic blood pressure 120 mm[Hg] Sonam Drake [employer] SELLER Work Phone: [facility] 12-31-2023 10:06-0500 [...] index (BMI) [Ratio] 40.06 kg/m2 Sonam Drake [employer] SE[employer]ER Work Phone: [facility] 12-30-2023 10:46-0500 Body weight 99.34 kg Sonam Drake [employer]ER Work Phone: [facility] 12-30-2023 10:46-0500 Diastolic blood pressure 74 mm[Hg] Sonam Drake [employer]ER Work Phone: [facility] 12-30-2023 10:46-0500 Heart rate 97 /min Sonam Drake [employer] Work Phone: [facility] 12-30-2023 10:46-0500 SaO2% (BldA) [Mass fraction] 98 % Sonam Drake [employer] SE[employer] Work Phone: [facility] 12-30-2023 10:46-0500 Systolic blood pressure 98 mm[Hg] Sonam Drake [employer] SE[employer]ER Work Phone: [facility] 10-03-2023 10:07-0400 Body height 157.5 cm Sonam Drake [employer] Work Phone: [facility] 10-03-2023 10:07-0400 Body mass index (BMI) [Ratio] 39.32 kg/m2 Sonam Drake [employer] Work Phone: [facility] 10-03-2023 10:07-0400 Body temperature 97.5 [degF] Sonam Drake [employer]ER Work Phone: [facility] 10-03-2023 10:07-0400 Body weight 97.52 kg Sonam Drake [employer] Work Phone: [facility] 10-03-2023 10:07-0400 Diastolic blood pressure 70 mm[Hg] Sonam Drake [employer] Work Phone: [facility] 10-03-2023 10:07-0400 Heart rate 107 /min Sonam Drake [employer] Work Phone: [facility] Comment on above: 97% O2 10-03-2023 10:07-0400 Systolic blood pressure 90 mm[Hg] Sonam Drake [employer] Work Phone: [facility] 01-18-2023 09:10-0500 Body height 156.21 cm Elle Hendricks Other [facility] Other 01-18-2023 09:10-0500 Body mass index (BMI) [Ratio] 42.82 kg/m2 Elle Dejesusmond Other [facility] Other 01-18-2023 09:10-0500 Body temperature 98.2 [degF] Elle Ruthie Other [facility] Other 01-18-2023 09:10-0500 Body weight 104.51 kg Elle Ruthie Other [facility] Other 01-18-2023 09:10-0500 Diastolic blood pressure 92 mm[Hg] Elle Ruthie Other [facility] Other 01-18-2023 09:10-0500 Respiratory rate 18 /min Elle Ruthie Other [facility] Other 01-18-2023 09:10-0500 SaO2% (BldA) [Mass fraction] 97 % Elle Ruthie Other [facility] Other 01-18-2023 09:10-0500 Systolic blood pressure 145 mm[Hg] Elle Ruthie Other [facility] Other Encounters Encounter Date Encounter Type Care Provider Facility Start: 11-23-2024 End: 11-23-2024 ambulatory Ameena WALTER Work Phone: [facility] Work Phone: Start: 11-23-2024 End: 11-23-2024 Patient encounter procedure Ameena J Aichholz [employer] [facility] [place] Work Phone: Start: 11-02-2024 End: 11-02-2024 Bamboo flowsheet [facility] Start: 11-02-2024 End: 11-02-2024 Bamboo flowsheet Kasi Bennett MD Work Phone: [facility] Start: 11-02-2024 End: 11-02-2024 Office outpatient visit 25 minutes Kasi Bennett MD Work Phone: [facility] Comment on above: Low serum parathyroi d hormone (PTH) (Primary Dx); Hypercalcemia; Vitamin D deficiency; Hypomagnesemia Start: 11-02-2024 End: 11-02-2024 ambulatory KASI BENNETT Not Available Start: 10-26-2024 Non-patient / Non-visit Kasi cali MD -[facility] Work Phone: Start: 10-26-2024 End: 10-26-2024 ambulatory Tanya Crowley MD Facility:[facility] Start: 10-19-2024 End: 10-19-2024 ambulatory Ameena Vera Work Phone: [facility] Work Phone: Start: 10-19-2024 End: 10-19-2024 Patient encounter procedure Ameena Vera [employer] [facility] [place] Work Phone: Start: 10-05-2024 End: 10-05-2024 Refill Jose Chandler MD Work Phone: [facility] Comment on above: Other hyperlipidemia Start: 09-29-2024 End: 09-29-2024 Refill Ameena Vera [employer] Work Phone: [facility] Comment on above: Lumbar back pain Start: 09-23-2024 End: 09-24-2024 Refill Ameenaovidio Vera [employer] Work Phone: [facility] Comment on above: Diabetic polyneuropa thy associated with type 2 diabetes mellitus (HCC) Start: 08-20-2024 End: 08-31-2024 Refill Ameenaovidio Vera [employer] Work Phone: [facility] Comment on above: Bilateral lower extr emity edema; Migraine with aura and without status migrainosus, not intractable ; Type 2 diabetes mellitus with diabetic microalbuminuria, without long-term current use of insulin (HCC); Osteoporosis, unspecified osteoporosis type, unspecified pathological fracture presence Start: 08-20-2024 End: 08-20-2024 Office outpatient visit 25 minutes Ameena Vera [employer] Work Phone: [facility] Comment on above: Type 2 diabetes cory itus with diabetic microalbuminuria, without long-term current use of insulin (HCC) (Primary Dx); Essential hypertension; Morbid (severe) obesity due to excess calories (E66.01); Cigarette nicotine dependence without complication; Chronic gout of multiple sites, unspecified cause; Gastroesophageal reflux disease without esophagitis; Bilateral lower extremity edema Start: 08-05-2024 End: 08-05-2024 Refill Ameena Chuy [employer] Work Phone: [facility] Comment on above: Chronic gout of mult iple sites, unspecified cause (Primary Dx) Type 2 diabetes cory itus with diabetic microalbuminuria, without long-term current use of insulin (HCC) Start: 08-02-2024 End: 08-04-2024 Refill Jose Chandler MD Work Phone: [facility] Comment on above: Lumbar back pain Start: 07-29-2024 End: 07-29-2024 Bamboo flowsheet Kasi Bennett MD Work Phone: [facility] Start: 07-29-2024 End: 07-29-2024 Bamboo flowsheet Kasi Bennett MD Work Phone: [facility] Start: 07-29-2024 End: 07-29-2024 Office outpatient new 45 minutes Kasi Bennett MD [facility] Comment on above: Hypercalcemia (Prima ry Dx); Low serum parathyroid hormone (PTH); Vitamin D deficiency Start: 07-29-2024 End: 07-29-2024 ambulatory KASI BENNETT Not Available Start: 07-26-2024 End: 07-27-2024 Refill Ameena Aichholz [employer] Work Phone: [facility] Comment on above: Lumbar back pain Start: 07-22-2024 End: 07-22-2024 Refill Jose Chandler MD Work Phone: [facility] Comment on above: Type 2 diabetes cory itus with diabetic microalbuminuria, without long-term current use of insulin ([facility]) Start: 07-14-2024 End: 07-14-2024 Orders Only Ameena Aichholz [employer] Work Phone: [facility] Comment on above: Low serum parathyroi d hormone (PTH) (Primary Dx) Start: 07-09-2024 End: 07-09-2024 Clinisync Result Encounter Ameena Aichholz [employer] Work Phone: [facility] External Department Unsolicited Start: 07-09-2024 End: 07-09-2024 Clinisync Result Encounter Ameena Aichholz [employer] Work Phone: [facility] External Department Unsolicited Start: 06-23-2024 End: 06-23-2024 Refill Ameena Aichholz [employer] Work Phone: [facility] Comment on above: Diabetic polyneuropa thy associated with type 2 diabetes mellitus ([facility]) Start: 06-22-2024 End: 06-22-2024 ambulatory Tanya Crowley MD Facility:[facility] Start: 06-11-2024 End: 06-11-2024 Refill Ameena Aichholz [employer] Work Phone: [facility] Comment on above: Acute non-recurrent sinusitis of other sinus (Primary Dx) Start: 06-03-2024 End: 06-03-2024 Orders Only Ameena Aichholz [employer] Work Phone: [facility] Comment on above: Hypercalcemia (Prima ry Dx); Low serum parathyroid hormone (PTH) Start: 05-28-2024 End: 05-28-2024 Patient encounter procedure [facility] Work Phone: Start: 05-28-2024 End: 05-28-2024 Patient encounter procedure [facility] Start: 05-28-2024 End: 05-28-2024 ambulatory Lui Banks II Facility:[facility] Start: 05-22-2024 End: 05-22-2024 Orders Only Ameena Aichholz [employer] Work Phone: [facility] Comment on above: Hypercalcemia (Prima ry Dx) Start: 05-21-2024 End: 05-21-2024 Clinisync Result Encounter Ameena Aichholz [employer] Work Phone: [facility] External Department Unsolicited Start: 05-21-2024 End: 05-21-2024 Clinisync Result Encounter Ameena Aichholz [employer] Work Phone: [facility] External Department Unsolicited Start: 05-19-2024 End: 05-19-2024 Bamboo flowsheet Ameena Aichholz [employer] Work Phone: [facility] Start: 05-19-2024 End: 05-19-2024 Bamboo flowsheet Ameena Aichholz [employer] Work Phone: [facility] Start: 05-19-2024 End: 05-19-2024 ambulatory AMEENA AICHHOLZ Not Available Start: 05-19-2024 End: 05-19-2024 Office outpatient visit 25 minutes Ameena Aichholz [employer] Work Phone: [facility] Comment on above: Type 2 diabetes cory itus with diabetic microalbuminuria, without long-term current use of insulin ([facility]) (Primary Dx); Morbid (severe) obesity due to excess calories ([facility]); Other hyperlipidemia; Body mass index (BMI) 39.0-39.9, adult; JANETT (obstructive sleep apnea); Bilateral lower extremity edema; Migraine with aura and without status migrainosus, not intractable ([facility]); Cigarette nicotine dependence without complication; Hypercalcemia; Essential hypertension; Elevated blood uric acid level; Lumbar back pain; Gastroesophageal reflux disease without esophagitis; Chronic gout of multiple sites, unspecified cause; Acute pain of right knee; Diabetic polyneuropathy associated with type 2 diabetes mellitus ([facility]) Start: 05-06-2024 End: 05-06-2024 Refill Jose Chandler MD Work Phone: [facility] Comment on above: Bilateral lower extr emity edema (Primary Dx) Start: 04-21-2024 End: 04-21-2024 Bamboo flowsheet Za Wilkerson [employer] Work Phone: [facility] Start: 04-21-2024 End: 04-21-2024 Bamboo flowsheet Za Wilkerson [employer] Work Phone: [facility] Start: 04-21-2024 End: 04-21-2024 ambulatory ZA WILKERSON Not Available Start: 04-21-2024 End: 04-21-2024 Office outpatient visit 25 minutes Za Wilkerson NP Work Phone: [facility] Comment on above: JANETT (obstructive sle ep apnea) (Primary Dx); Hypersomnia; Snoring; Primary insomnia; Tobacco abuse Start: 03-30-2024 End: 03-30-2024 Bamboo flowsheet Sonam Drake [employer] Work Phone: [facility] Start: 03-30-2024 End: 03-30-2024 Bamboo flowsheet Sonam Drake [employer] Work Phone: [facility] Start: 03-30-2024 [...] microalbuminuria, without long-term current use of insulin ([facility]) Start: 03-30-2024 End: 03-30-2024 Office outpatient visit 15 minutes Sonam Drake [employer] Work Phone: [facility] Comment on above: Type 2 diabetes cory itus with diabetic microalbuminuria, without long-term current use of insulin ([facility]) (Primary Dx); Essential hypertension; Other hyperlipidemia ([facility]); JANETT (obstructive sleep apnea); Type 2 diabetes mellitus without complication, without long-term current use of insulin ([facility]) Start: 03-18-2024 End: 03-18-2024 Clinisync Result Encounter Generic External Data Provider [facility] External Department Unsolicited Start: 03-18-2024 End: 03-18-2024 Clinisync Result Encounter Generic External Data Provider [facility] External Department Unsolicited Start: 03-16-2024 End: 03-16-2024 Refill Sonam Drake [employer] Work Phone: [facility] Comment on above: Gastroesophageal ref lux disease without esophagitis Start: 03-09-2024 End: 03-09-2024 Refill Sonam Drake [employer] Work Phone: [facility] Comment on above: Osteoporosis, unspec ified osteoporosis type, unspecified pathological fracture presence ([facility]) Start: 03-03-2024 End: 03-03-2024 Bamboo flowsheet Sonam Drake [employer] Work Phone: [facility] Start: 03-03-2024 End: 03-03-2024 Bamboo flowsheet Sonam Drake [employer] Work Phone: [facility] Start: 03-03-2024 End: 03-03-2024 ambulatory SONAM DRAKE Not Available Start: 03-03-2024 End: 03-03-2024 Office outpatient visit 10 minutes Sonam Drake [employer] Work Phone: [facility] Comment on above: Upper respiratory in fection with cough and congestion (Primary Dx); Lumbar back pain; Migraine with aura and without status migrainosus, not intractable ([facility]/HCC); Type 2 diabetes mellitus with diabetic microalbuminuria, without long-term current use of insulin ([facility]); Diabetic polyneuropathy associated with type 2 diabetes mellitus ([facility]); Other hyperlipidemia ([facility]) Start: 01-30-2024 End: 01-30-2024 Refill Jolly Castaneda MA [facility] Comment on above: Lumbar back pain (Pr imary Dx); Type 2 diabetes mellitus with diabetic microalbuminuria, without long-term current use of insulin ([facility]) Start: 01-14-2024 End: 01-14-2024 Refill Jolly Castaneda MA [facility] Comment on above: Lumbar back pain Start: 12-31-2023 End: 12-31-2023 Clinisync Result Encounter Sonam Drake [employer] Work Phone: [facility] External Department Unsolicited Start: 12-31-2023 End: 12-31-2023 Clinisync Result Encounter Sonam Drake [employer] Work Phone: [facility] External Department Unsolicited Start: 12-31-2023 End: 12-31-2023 Office consultation new/estab patient 60 min Sivan Solo DO Work Phone: [facility] [address] [facility] Comment on above: JANETT (obstructive sle ep apnea) (Primary Dx); Hypersomnia; Snoring; Primary insomnia; Tobacco abuse Start: 12-31-2023 End: 12-31-2023 ambulatory SIVAN SOLO Not Available Start: 12-30-2023 End: 12-30-2023 Bamboo flowsheet Sonam Drake [employer] Work Phone: [facility] Start: 12-30-2023 End: 12-30-2023 Bamboo flowsheet Sonam Drake [employer] Work Phone: [facility] Start: 12-30-2023 End: 12-30-2023 Office outpatient visit 15 minutes Sonam Drake [employer] Work Phone: [facility] Comment on above: Type 2 diabetes cory itus with diabetic microalbuminuria, without long-term current use of insulin ([facility]) (Primary Dx); Essential hypertension; Other hyperlipidemia ([facility]); Snoring; Mixed urge and stress incontinence Start: 12-30-2023 End: 12-30-2023 ambulatory SONAM DRAKE Not Available Start: 12-17-2023 End: 12-17-2023 Refill Jolly Castaneda MA [facility] Comment on above: Migraine with aura a nd without status migrainosus, not intractable ([facility]); Diabetic polyneuropathy associated with type 2 diabetes mellitus ([facility]) Start: 12-17-2023 End: 12-18-2023 Refill Sonam Drake [employer] Work Phone: [facility] Comment on above: Gout, unspecified ca use, unspecified chronicity, unspecified site Start: 11-04-2023 End: 11-04-2023 Refill Stiven Omalley MA [facility] Comment on above: Gout, unspecified ca use, unspecified chronicity, unspecified site Start: 11-01-2023 End: 11-02-2023 Refill Stiven Omalley MA [facility] Comment on above: Diabetic polyneuropa thy associated with type 2 diabetes mellitus ([facility]) Start: 10-04-2023 ambulatory Facility:[facility] Start: 10-03-2023 End: 10-03-2023 Bamboo flowsheet Sonam Drake [employer] Work Phone: [facility] Start: 10-03-2023 End: 10-03-2023 Bamboo flowsheet Sonam Drake [employer] Work Phone: [facility] Start: 10-03-2023 [...] incontinence; Snoring Start: 04-30-2023 End: 04-30-2023 ambulatory [facility] Work Phone: Start: 04-30-2023 End: 04-30-2023 Patient encounter procedure [facility] Work Phone: Start: 03-21-2023 Orders Only Shaikh Maricel HOLLIS Work Phone: [facility] Comment on above: Diabetic polyneuropa thy associated with type 2 diabetes mellitus (CMS/HCC) (Primary Dx) Start: 03-19-2023 End: 03-19-2023 ambulatory Ana Luisa Curtis Other [facility] Other Start: 03-19-2023 Office outpatient vi sit 15 minutes Ana Luisajesus Curtis [facility] Start: 01-23-2023 End: 01-23-2023 ambulatory Ana Luisa Calvey Other [facility] Other Start: 01-23-2023 Office outpatient vi sit 15 minutes Ana Luisajesus Curtis [facility] Start: 01-18-2023 End: 01-18-2023 ambulatory Elle Hendricks Other [facility] Other Start: 01-18-2023 Office outpatient vi sit 15 minutes Elle Hendricks [facility] [place] Start: 09-19-2022 End: 09-19-2022 ambulatory Ana Luisajesus Curtis Other [facility] Other Start: 09-19-2022 Telephone encounter Ana Luisa Kirsten [facility] Start: 07-12-[address] JONATHAN EDWARDS Facili ty:[facility] Start: 06-07-2022 End: 06-08-[address] JONATHAN EDWARDS Facility:[facility] Start: 05-02-2022 End: 05-02-2022 ambulatory Ana Luisa Curtis Other [facility] Other Start: 05-02-2022 Office outpatient ne w [...] Start: 08-30-2021 End: 08-31-2021 ambulatory RADHAELIEL SNOWDEN [facility] Start: 08-30-2021 End: 08-30-2021 Subsequent hospital visit by physician Sr Edwards DO Work Phone: [facility] Comment on above: Routine cervical sme ar Start: 08-16-2021 Encounter for genera l adult medical examination without abnormal findings DR RICARDO HOLM . [facility] Start: 08-09-2021 End: 08-10-2021 Encounter for [...] 08-20-2024 Hemoglobin glycosyla anne a1c Ameena Aichholz [employer] Work Phone: Start: 07-09-2024 ALL BASIC METABOLIC PANEL Ameena Chuy [employer] Work Phone: Start: 05-28-2024 Plain radiography of pelvis Start: 05-28-2024 X-ray of right knee, four views Start: 05-21-2024 Radiologic examinati on knee 3 views Ameena Vera [employer] Work Phone: Start: 05-21-2024 ALL CBC WITH AUTO DIFF Ameena Aichholz [employer] Work Phone: Start: 05-19-2024 Hemoglobin glycosyla anne a1c Ameena Aichholz [employer] Work Phone: Start: 03-30-2024 Hemoglobin glycosyla anne a1c Sonam Drake [employer] Work Phone: Start: 03-18-2024 MM TOMOSYNTHESIS SCR EENING BI Generic External Data Provider Start: 03-18-2024 Mammography Generic Pr ovider Start: 12-31-2023 ALL CBC WITH AUTO DIFF Sonam Drake [employer] Work Phone: Start: 03-20-2023 Mammography Shaikh Marie [...] Urine Protein Screening [facility] Start: 05-03-2025 End: 05-03-2025 Patient encounter procedure 05/03/2025 1:00 PM EDT Office Visit [facility] [address] [place] [address] Kasi Bennett MD [address] [place] [address] [facility] Start: 04-06-2025 End: 04-06-2025 Patient encounter procedure 04/06/2025 1:15 PM EST Office Visit [facility] [address] [place] [phone] Alicia Monroy MD [address] [place] [address] [facility] Start: 03-30-2025 End: 03-30-2025 Patient encounter procedure [facility] Start: 03-18-2025 Screening for malignant neoplasm of breast Mammogram [facility] Start: 02-20-2025 Hemoglobin A1c measurement Diabetes: Hemoglobin A1C [facility] Start: 12-30-2024 Urine screening for protein Diabetes: Urine Protein Screening [facility] Start: 11-23-2024 End: 11-23-2024 Patient encounter procedure 11/23/2024 1:00 PM EDT Office Visit [facility] [address] [place] [address] Ameena Vera NP [address] [place] [address] [facility] Start: 11-18-2024 Hemoglobin A1c measurement Diabetes: Hemoglobin A1C [facility] Start: 11-02-2024 End: 11-02-2025 25-hydroxyvitamin D3 [Mass/volume] in Serum or Plasma Vitamin D 25 hydroxy Total Lab Routine Low serum parathyroid hormone (PTH) Hypercalcemia Vitamin D deficiency Hypomagnesemia Expected: 11/02/2024 (Approximate), Expires: 11/02/2025 [facility] Comment on above: Expected: 11/02/2024 (Approximate), Expi res: 11/02/2025 Start: 11-02-2024 End: 11-02-2025 Magnesium [Mass/volume] in Serum or Plasma Magnesium Lab Routine Low serum parathyroid hormone (PTH) Hypercalcemia Vitamin D deficiency Hypomagnesemia Expected: 11/02/2024 (Approximate), Expires: 11/02/2025 [facility] Work Phone: Comment on above: Expected: 11/02/2024 (Approximate), Expi res: 11/02/2025 Start: 11-02-2024 End: 11-02-2025 Parathyrin.intact and Calcium panel - Serum or Plasma PTH, intact and calcium Lab Routine Low serum parathyroid hormone (PTH) Hypercalcemia Vitamin D deficiency Hypomagnesemia Expected: 11/02/2024 (Approximate), Expires: 11/02/2025 [facility] Comment on above: Expected: 11/02/2024 (Approximate), Expi res: 11/02/2025 Start: 11-02-2024 End: 11-02-2025 Renal function panel Renal function panel Lab Routine Low serum parathyroid hormone (PTH) Hypercalcemia Vitamin D deficiency Hypomagnesemia Expected: 11/02/2024 (Approximate), Expires: 11/02/2025 [facility] Comment on above: Expected: 11/02/2024 (Approximate), Expi res: 11/02/2025 Start: 11-02-2024 End: 11-02-2024 Patient encounter procedure [facility] Comment on above: Arrived Start: 10-26-2024 End: 10-26-2024 Patient encounter procedure 10/26/2024 1:20 PM EDT Office Visit [facility] [address] [place] [phone] Za Wilkerson NP [address] [place] [address] [facility] Start: 10-19-2024 End: 10-19-2024 Patient encounter procedure 10/19/2024 11:30 AM EDT Office Visit [facility] [address] [place] [address] Ameena Vera, RONALDO [address] [place] [address] [facility] Start: 10-12-2024 Influenza vaccination [facility] Start: 09-30-2024 End: 09-30-2024 Patient encounter procedure [facility] Start: 09-27-2024 Hemoglobin A1c measurement Diabetes: Hemoglobin A1C [facility] Start: 08-30-2024 Screening for malignant neoplasm of cervix [facility] Start: 08-20-2024 End: 08-20-2024 Patient encounter procedure 08/20/2024 10:30 AM EDT Office Visit [facility] [address] [place] [address] Ameena Vera, RONALDO [address] [place] [phone] [facility] Start: 07-29-2024 End: 07-29-2025 [...] Start: 07-29-2024 End: 07-29-2024 Patient encounter procedure [facility] Comment on above: Low serum [...] Start: 06-25-2024 End: 06-25-2024 Patient encounter procedure [facility] Start: 05-22-2024 End: 05-22-2025 [...] microalbuminuria, without long-term current use of insulin ([facility]) Hypercalcemia Essential hypertension Expected: 05/19/2024 (Approximate), [...] microalbuminuria, without long-term current use of insulin ([facility]) Essential hypertension Expected: 05/19/2024 (Approximate), Expires: [...] acid level Expected: 05/19/2024 (Approximate), Expires: 05/19/2025 [facility] Comment on above: Expected: 05/19/2024 (Approximate), Expi res: 05/19/2025 Start: 05-19-2024 End: 05-19-2025 Urinalysis complete panel - Urine Urinalysis with reflex microscopic (clean catch) Lab Routine Type 2 diabetes mellitus with diabetic microalbuminuria, without long-term current use of insulin ([facility]) Cigarette nicotine dependence without complication Essential hypertension Elevated blood uric acid level Expected: 05/19/2024 (Approximate), Expires: 05/19/2025 [facility] [...] [facility] [address] [place] [phone] Ameena Vera NP [address] [place] [address] [facility] Start: 04-21-2024 End: 04-21-2024 Patient encounter procedure 04/21/2024 1:00 PM EDT Office Visit [facility] [address] [place] [phone] Za Wilkerson NP [address] [place] [address] [facility] Start: 03-30-2024 End: 03-30-2024 Patient encounter procedure 03/30/2024 11:05 AM EST Office Visit [facility] [address] [place] [address] Alicia Monroy MD [address] [place] [address] [facility] Start: 03-26-2024 End: 03-26-2024 Patient encounter procedure 03/26/2024 2:00 PM EST Office Visit [facility] [address] [place] [phone] Sonam Drake NP [address] [place] [phone] [facility] Start: 03-24-2024 End: 03-24-2024 Patient encounter procedure [facility] [address] [facility] Start: 03-20-2024 Screening for malignant neoplasm of breast Mammogram [facility] Start: 02-27-2024 End: 02-27-2024 Patient encounter procedure 02/27/2024 11:35 AM EST Office Visit [facility] [address] [place] [phone] Alicia Monroy MD [address] [address] [place] [address] [facility] Start: 02-25-2024 End: 02-25-2024 Patient encounter procedure 02/25/2024 3:30 PM EST Office Visit [facility] [address] [place] [address] Sonam Drake, RONALDO [address] [place] [address] [facility] Start: 02-21-2024 Medicare Annual Wellness (AWV) Medicare Annual Wellness (AWV) [facility] procedure 12/31/2023 10:00 AM EST Office Visit [facility] [address] [place] [id number] Sivan Banda, DO [address] [place] [address] [facility] [address] Start: 12-30-2023 End: 12-29-2024 CBC W Auto Differential panel - Blood CBC and differential Lab Routine Type 2 diabetes mellitus with diabetic microalbuminuria, without long-term current use of insulin ([facility]) Essential hypertension Expected: 12/30/2023 (Approximate), Expires: 12/29/2024 [facility] Comment on above: Expected: 12/30/2023 (Approximate), Expi res: 12/29/2024 Start: 12-30-2023 End: 12-29-2024 Comprehensive metabolic 2000 panel - Serum or Plasma Comprehensive metabolic panel Lab Routine Type 2 diabetes mellitus with diabetic microalbuminuria, without long-term current use of insulin ([facility]) Essential hypertension Expected: 12/30/2023 (Approximate), Expires: 12/29/2024 [facility] Comment on above: Expected: 12/30/2023 (Approximate), Expi res: 12/29/2024 Start: 12-30-2023 End: 12-29-2024 Hemoglobin A1c/Hemoglobin.total in Blood Hemoglobin A1c Lab Routine Type 2 diabetes mellitus with diabetic microalbuminuria, without long-term current use of insulin ([facility]/HCC) Expected: 12/30/2023 (Approximate), Expires: 12/29/2024 [facility] Comment on above: Expected: 12/30/2023 (Approximate), Expi res: 12/29/2024 Start: 12-30-2023 End: 12-30-2023 Patient encounter procedure 12/30/2023 10:30 AM EST Office Visit [facility] [address] [place] [id number] Sonam Drake NP [address] [place] [address] [facility] Start: 11-04-2023 End: 11-04-2023 Patient encounter procedure 11/04/2023 2:30 PM EDT Office Visit [facility] [place] [address] [place] [address] Sivan Banda DO [address] [place], [place] [id number] [facility] [place] [address] Start: 10-13-2023 Influenza vaccination Influenza Vaccine (#1) [facility] Start: 08-11-2023 Influenza vaccination Influenza Vaccine (#1) [facility] Comment on above: Postponed from 10/12/2022 (Patient Refus ed) Start: 05-02-2023 End: 05-02-2023 Patient encounter procedure 05/02/2023 2:00 PM EDT [facility] [address] [place] [address] Shaikh Connelly MD [address] [place] [address] [facility] Start: 02-17-2023 Hemoglobin A1c measurement Diabetes: Hemoglobin A1C [facility] Start: 09-04-2022 End: 09-04-2022 Patient encounter procedure 09/04/2022 Office Visit Obstetrics and Gynecology Radha Barclay, LASTING FLOORWORKER - CNM [address] [place] [address] [address] [place] [address] [facility] Start: 10-12-2021 Influenza vaccination Flu vaccine (#1) [facility] Start: 10-21-2013 Screening for malignant neoplasm of breast Breast cancer screen [facility] Start: 10-21-2013 Shingles vaccine (1 of 2) Shingles vaccine (1 of 2) [facility] Start: 10-21-2008 Screening for malignant neoplasm of colon [facility] Start: 2003 Lipid panel Lipids [facility] Start: 10-21-1998 Diabetes screen Diabetes screen [facility] Start: 10-21-1993 Screening for malignant neoplasm of cervix [facility] Start: 10-21-1982 DTaP/Tdap/Td vaccine (1 - Tdap) DTaP/Tdap/Td vaccine (1 - Tdap) [facility] Start: 10-21-1982 Urine screening for protein Diabetes: Urine Protein Screening [facility] Start: 10-21-1981 Hepatitis C screening Hepatitis C screen [facility] Start: 10-21-1978 HIV screening HIV screen [facility] Start: 1975 Depression Screen Depression Screen [facility] Start: 03-10-1965 COVID-19 Vaccine (#1) COVID-19 Vaccine (#1) [facility] Start: 1965 Screening for malignant neoplasm of colon [facility] End: 08-30-2021 Cytopathology procedure, preparation of smear, genital source PAP SMEAR Lab Routine Routine cervical smear 1 Occurrences starting 08/30/2021 until 08/30/2021 [facility] Provender Work Phone: Comment on above: 1 Occurrences starting 08/30/2021 until 08/30/2021 Microalbumin/Creatin ine panel in random Urine Microalbumin / creatinine urine ratio Lab Routine Type 2 diabetes mellitus with diabetic microalbuminuria, without long-term current use of insulin ([facility]) Essential hypertension Ordered: 12/30/2023 [facility] Work Phone: Comment on above: Ordered: 12/30/2023 Patient Education Low back pain in adults [facility] Work Phone: XR Wrist - left GE 3 Views [facility] Immunizations Immunization Date Immunization Notes Care Provider Tima garcia 01-14-2017 influenza, injectabl e, quadrivalent, preservative free [facility] 01-14-2017 influenza virus vaccine, unspecified formulation Sonam Drake NP Work Phone: [facility] Payers Date Payer Category Payer Self-pay [id number] 2022 Private Health Insurance [id number] 2022 Unknown [id number]. [id number] 2022 Unknown 2022 2012 Medicare [id number]. 1.13.693.2.7.3.663519.315 1963 Unknown [id number] 2.16.8 40.1.621092.3.579.2.173 1963 Unknown [id number] 2.16.84 0.1.419801.3.579.2.593 1963 Unknown [id number] 2.16.84 0.1.033666.3.579.2.593 1963 Unknown [id number] 2.16.84 0.1.326951.3.579.2.593 1963 Unknown [id number] 2.16.84 0.1.080213.3.579.2.593 1963 Unknown [id number] 2.16.84 0.1.302741.3.579.2.593 1963 Unknown [id number] 2.16.84 0.1.434521.3.579.2.593 1963 Unknown [id number] 2.16.84 0.1.292834.3.579.2.593 1963 Unknown [id number] 2.16.84 0.1.641771.3.579.2.593 1963 Unknown [id number] 2.16.84 0.1.144011.3.579.2.593 1963 Unknown [id number] 2.16.84 0.1.456610.3.579.2.593 1963 Unknown [id number] 2.16.84 0.1.928393.3.579.2.593 1963 Unknown [id number] 2.16.84 0.1.893961.3.579.2.593 1963 Unknown [id number] 2.16.84 0.1.857395.3.579.2.593 1963 Unknown [id number] 2.16.84 0.1.523877.3.579.2.593 1963 Unknown [id number] 2.16.84 0.1.775490.3.579.2.593 1963 Unknown [id number] 2.16.84 0.1.441348.3.579.2.593 1963 Unknown [id number] 2.16. 840.1.453985.3.579.2.196 1963 Unknown [id number] 2.16. 840.1.603041.3.579.2.196 1963 Unknown [id number] 2.16.8 40.1.408034.3.579.2.1259 1963 Unknown [id number] 2.16.8 40.1.546416.3.579.2.1258 1963 Unknown [id number] 2.16.8 40.1.385102.3.579.2.1258 1963 Unknown [id number] 2.16.84 0.1.795685.3.579.2.9 1963 Unknown [id number] 2.16.84 0.1.210524.3.579.2.9 1963 Unknown [id number] 2.16.84 0.1.507504.3.579.2.1259 1963 Unknown [id number] 2.16.84 0.1.682274.3.579.2.9 1963 Unknown [id number] 2.16.84 0.1.148093.3.579.2.9 1963 Unknown [id number] 2.16.84 0.1.715370.3.579.2.9 1963 Unknown [id number] 2.16.84 0.1.571233.3.579.2.1259 1959 Medicare [id number] 1.2.840.336144.1.13.239.2.7.3.069852.315 1959 Unknown [id number] 1.2.840.104219.1.13.239.2.7.3.768663.315 1959 Unknown [id number] 2.16.8 40.1.661275.19 Medicare Medicare [id number] Unknown [id number] 2.16.8 40.1.399226.3.579.2.531 Social History Date Type Detail Facility Start: 08-30-2021 End: 04-21-2024 Tobacco smoking status VAIS Smokes tobacco daily [facility] Phone: History of tobacco use Cigarette Smoker B ON [facility] Phone: Start: 08-30-2021 End: 04-21-2024 Tobacco use and exposure Smokeless tobacco non-user [facility] Phone: Start: 08-30-2021 Alcohol intake Current drinke r of alcohol (finding) [facility] Phone: Start: 08-30-2021 History SDOH Alcohol Comment occasional [facility] Phone: Start: 1965 Sex Assigned At Not on file B ON [facility] Phone: Start: 08-20-2021 End: 08-30-2021 Exposure to SARS-CoV-2 (event) Not sure [facility] Start: 02-25-2023 End: 10-02-2023 Sex Assigned At [facility] Start: 01-29-2023 End: 05-20-2024 Tobacco smoking status VAIS Ex-smoker [facility] History of tobacco use Current smoker [facility] Start: 01-29-2023 End: 10-02-2023 Cigarettes smoked current (pack per day) - Reported 0.5 [facility] Start: 02-25-2023 End: 08-20-2024 Alcohol intake Lifetime non-drinker (finding) [facility] Start: 1965 Sex Assigned At Female F [facility] History of tobacco use Passive smoker [facility] How often do you nee d to have someone help you when you read instructions, pamphlets, or other written material from your doctor or pharmacy [SILS] Patient declines to respond [facility] Are you now , , , [...] [facility] Start: 05-29-2024 Sex Female (finding) [facility] Medical Equipment Procedure Code Equipment Code Equipment Origin al Text Equipment Identifier Dates [id number] Start: 06-08-2021 End: 04-21-2024 Clinical Notes 06-20-2021 [...] MORE THAN 3 TABLETS DAILY Continuous Glucose Assembly Line Robot Operator (Dexcom G7 Assembly Line Robot Operator) device 1 each, Does not apply, Continuous [...] months (around 05/02/2025). documented in this encounter [facility] 10-19-2024 Evaluation note Diagnosis Onset Date Resolution [...] pain, left acute November 23, 2024 1:05pm [facility] Work Phone: 1(184) 210-586107-10-2025 History of Present illness Narrative* Ameena Vera [...] 6.3%, 94% TIR , 4% high 30 edl970, 6.3%m 93% TIR, and 5% high, 1 [...] MORE THAN 3 TABLETS DAILY Continuous Glucose Assembly Line Robot Operator (Dexcom G7 Assembly Line Robot Operator) device 1 each, Does not apply, Continuous [...] long-term current use of insulin ([facility]) - Primary Check blood sugars daily, [...] legs Current meds: none documented in this encounterMissouri Southern HealthcareZxfgrrdcsl10-80-1879 Telephone encounter Note* Telephone Encounter - Ameena Vera NP - 08/20/2024 11:19 AM EDT Please call [facility] in [place] for copy of diabetic eye exam [place] [facility] HealthcareKoyvjehgsh57-99-1457 Miscellaneous Notes* Telephone Encounter - Ameena Vera NP - 08/20/2024 11:19 AM EDT Please call [facility] in [place] for copy of diabetic eye exam [place] documented in this encounterMissouri Southern HealthcareCeccghdces74-27-4503 Instructions* Patient Instructions* Ameena Vera NP - 08/20/2024 10:30 AM EDT Furosemide every other day 1/2 tablet documented in this encounterMissouri Southern HealthcareJiodabgawj00-70-0085 History of Present illness Narrative* Kasi Bennett [...] MORE THAN 3 TABLETS DAILY Continuous Glucose Assembly Line Robot Operator (Dexcom G7 Assembly Line Robot Operator) device 1 each, Does not apply, Continuous [...] 2 months (around 09/28/2024). documented in this encounterMissouri Southern HealthcareEhqyerhnhp56-05-3303 Evaluation note* Diagnosis Onset Date Resolution Status Admit Date Primary osteoarthritis of ri ght knee acute May 28, 2024 12:55pm [facility] Work Phone: 1(701) 490-479504-11-2025 History of Present illness Narrative* Ameena Vera NP - 05/22/2024 7:25 AM EDT par documented in this encounterMissouri Southern HealthcareTzynzcqahc97-07-7024 History of Present illness Narrative* Ameena Vera [...] orthopedic surgeon in the past back in [place] for that knee however she does not [...] orthopedic surgeon in the past back in [place] for that knee however she does not [...] MORE THAN 3 TABLETS DAILY Continuous Glucose Assembly Line Robot Operator ([employer] G7 Assembly Line Robot Operator) device 1 each, Does not apply, Continuous [...] microalbuminuria, without long-term current use of insulin ([facility]) Check blood sugars daily, notify if [...] aura and without status migrainosus, not intractable ([facility]) Current meds: maxalt, depakote Other hyperlipidemia [...] aura and without status migrainosus, not intractable ([facility]/HCC) Current meds: maxalt, depakote * Ameena Vera NP - 05/19/2024 6:51 AM EDTAssociated Problem(s): Type 2 diabetes mellitus with diabetic microalbuminuria, without long-term current use of insulin ([facility]) Check blood sugars daily, notify if [...] that supplies your machine and tubing/filters etc: [facility] Doctor that manages your JANETT: Dr Banda documented in this [facility]04-08-2025 Instructions* Patient Instructions* Ameena Vera NP - 05/19/2024 11:00 AM EDT Fasting labs Get xray knee Referral to Dr Darren Orona documented in this [facility]02-17-2025 Telephone encounter Note* Telephone Encounter - Jolly Castaneda MA - 03/30/2024 11:44 AM EST Pt's sensor fell off, and she needs them refilled please [facility] [id number] Miscellaneous Notes* Telephone Encounter - Jolly Castaneda MA - 03/30/2024 11:44 AM EST Pt's sensor fell off, and she needs them refilled please documented in this [facility]02-17-2025 History of Present illness Narrative* Alicia Monroy [...] Examined Right arm Examined Patient wearing nail namibian, Denies dark streaks under finger nails, Denies [...] skin check documented in this encounterMissouri Southern HealthcareMfzsicafns44-02-8880 History of Present illness Narrative* Sonam Drake [...] microalbuminuria, without long-term current use of insulin ([facility]) - Primary Currently taking Metformin Bid [...] (Hb A1C) docked device (Completed) Other hyperlipidemia ([facility]) Crestor 20mg Denies myalgias Continue current [...] use of insulin (CMS/HCC) documented in this encounterMissouri Southern HealthcareJqfdabjpsk25-72-4210 Instructions* Patient Instructions* Sonam Drake NP - [...] carbohydrates, and simple sugars. documented in this encounterMissouri Southern HealthcareHanbiiyzop45-95-7550 History of Present illness Narrative* Sonam Drake [...] microalbuminuria, without long-term current use of insulin ([facility]) Relevant Medications metFORMIN (Glucophage) 500 MG tablet Continuous Glucose Assembly Line Robot Operator (Dexcom G7 Assembly Line Robot Operator) device Continuous Glucose Sensor (Dexcom G7 Sensor) [...] polyneuropathy associated with type 2 diabetes mellitus ([facility]) Relevant Medications pregabalin (Lyrica) 75 MG capsule documented in this encounterMissouri Southern HealthcareIqytvahxpc95-29-3481 Instructions* Patient Instructions* Sonam Drake NP - [...] 1500 calories per day. documented in this [facility]12-19-2024 Telephone encounter Note* Telephone Encounter - Jolly Castaneda MA - 01/30/2024 10:38 AM EST GIOVANNA:12/30/2023 NOV:03/26/2024 [facility] [id number] Miscellaneous Notes* Telephone Encounter - Jolly Castaneda MA - 01/30/2024 10:38 AM EST GIOVANNA:12/30/2023 NOV:03/26/2024 documented in this [facility]12-03-2024 Telephone encounter Note* Telephone Encounter - Jolly Castaneda MA - 01/14/2024 8:34 AM EST GIOVANNA:12/30/2023 NOV:03/26/2023 [facility] HealthcareOxgeimkwoq02-18-1448 Miscellaneous Notes* Telephone Encounter - Jolly Castaneda MA - 01/14/2024 8:34 AM EST GIOVANNA:12/30/2023 NOV:03/26/2023 documented in this encounterMissouri Southern HealthcareCcyuyjdbaz63-30-0243 History of Present illness Narrative* Sivan Banda DO - 12/31/2023 10:00 AM EST Images from the original note were not included. No chief complaint on file. Subjective SLEEP CONSULT REFERRAL: Snoring, concern for JANETT, needing sleep study - labs @ [facility]; referral received from Sonam Drake CNP. [...] mellitus, without long-term current use of insulin (CMS/[facility]) Past Surgical History: Procedure Laterality Date BACK [...] to clinic: 2 months documented in this [facility]11-18-2024 History of Present illness Narrative* Sonam Drake [...] microalbuminuria, without long-term current use of insulin ([facility]) - Primary Currently taking Metformin Bid [...] JANETT. First appointment tomorrow. documented in this [facility]11-18-2024 Instructions* Patient Instructions* Sonam Drake NP - 12/30/2023 10:30 AM EST FASTING labs ordered. Nothing to eat or drink for 12 hours prior to blood draw. Water and black coffee ok. Call if you need anything! documented in this encounterMissouri Southern HealthcarePvinfhgbgr65-42-2559 Telephone encounter Note* Telephone Encounter - Jolly Castaneda MA - 12/17/2023 3:39 PM EST GIOVANNA:10/03/2023 NOV:12/30/2023 [facility] [id number] Miscellaneous Notes* Telephone Encounter - Jolly Castaneda MA - 12/17/2023 3:39 PM EST GIOVANNA:10/03/2023 NOV:12/30/2023 documented in this encounterMissouri Southern HealthcareYrlxndfbls29-29-5306 History of Present illness Narrative* Sonam Drake NP - 10/03/2023 10:57 AM EDTAssociated Problem(s): Snoring Screening for JANETT- Referral sent to [facility] [place] * Sonam Drake NP - 10/03/2023 10:35 [...] microalbuminuria, without long-term current use of insulin ([facility]) Metformin Bid and Ozempic Most recent [...] for JANETT- Referral sent to [facility] [place] Other Visit Diagnoses Type 2 diabetes mellitus without complication, without long-term current use of insulin (CMS/HCC) Relevant Medications semaglutide (Ozempic, 1 MG/DOSE,) 4 MG/3ML solution pen-injector Diabetic polyneuropathy associated with type 2 diabetes mellitus (CMS/HCC) Relevant Medications pregabalin (Lyrica) 75 MG capsule documented in this encounterMissouri Southern HealthcareSblhfznigo03-90-7181 Instructions* Patient Instructions* Sonam Drake NP - [...] if you need anything! documented in this [facility]02-06-2024 Evaluation note* Encounter Date Diagnosis Assessment Notes [...] Left hand pain (ICD- 10 - M79.642) [facility] Other 12-13-2023 Evaluation note* Encounter Date Diagnosis [...] noted. Patient will f/u in 4 weeks. [facility] Other 12-08-2023 Evaluation note* Encounter Date Diagnosis [...] left hand x-ray that was performed at [facility] which revealed degenerative changes in the hand as well as a remote avulsion fracture of the thumb. Patient states her family doctor is treating her for gout in her hand. Jan, History of gout (ICD-10 - Z87.39) Jan, Other Gout material w as printed [facility] Other 08-09-2023 Evaluation note* Encounter Date Diagnosis Assessment Notes Treatment Notes Treatment Clinical Notes Sep, Right wrist pain (ICD-10 - M25.531) [facility] Other 04-27-2023 NoteCONSULTATION CONSULTATION DATE: 06/07/2022 TO: [...] our patients to inform us about any npyb-kfs-zhgigis medications or herbal remedies/nutritional supplements/alternative remedies. 2. [...] treatment options with their primary care provider.[facility] HospitalAqvfyihk12-90-5191 Evaluation note * Encounter Date Diagnosis Assessment [...] understanding and is agreeable to treatment plan. [facility] Other 01-26-2023 NoteCONSULTATION PROCEDURE DATE: 03/08/2022 PREOPERATIVE [...] will be followed up in the clinic.[facility] HospitalVaqnnkmw38-08-2895 NotePROCEDURE: XR KNEE LT 4V or > [...] Electronically authenticated by: PATTIE SALTER Date: 2022-02-16 11:29[facility]12-30-2022 NoteCONSULTATION CONSULTATION DATE: 02/09/2022 HISTORY OF PRESENT [...] office today. Patient agrees with this plan.[facility] HospitalOqkbdapu93-92-8065 NotePROCEDURE: XR WRIST RT MIN 3 V COMPARISON: None. HISTORY: Injury of right wrist FINDINGS: BONES:No acute fracture or dislocation. Corticated bone fragment identified along the first carpometacarpal joint [degenerative in nature SOFT TISSUES:Moderate diffuse soft tissue swelling EFFUSION:None visible. OTHER: Negative. IMPRESSION: Soft tissue swelling, no acute fracture Electronically authenticated by: RYAN GOLDMAN Date: 2021-11-16 18:59[facility] HospitalDatehjzn79-19-8153 NoteCONSULTATION CONSULTATION DATE: 11/01/2021 HISTORY OF PRESENT [...] otherwise indicated. Patient agrees with this plan.[facility] HospitalVsdqxkho32-79-1652 NoteCONSULTATION PROCEDURE DATE: 11/01/2021 PRE AND POSTOPERATIVE [...] will be followed up in the clinic.[facility] HospitalPdvjokoi30-26-8070 NoteCONSULTATION PROCEDURE DATE: 08/09/2021 PREOPERATIVE DIAGNOSIS: Bilateral [...] Approved by: CRYS PIERCE . 08/10/2021 13:37:00[facility] HospitalRsynypjv89-61-2576 NoteCONSULTATION CONSULTATION DATE: 07/19/2021 HISTORY OF PRESENT [...] Approved by: CRYS PIERCE . 07/20/2021 10:33:00[facility] HospitalAxyldtxv15-17-3244 NotePROCEDURE: XR FOOT RT MIN 3 VIEWS [...] Electronically authenticated by: PATTIE SALTER Date: 2021-07-05 11:11[facility]05-10-2022 NoteCONSULTATION CONSULTATION DATE: 06/20/2021 CHIEF COMPLAINT: Low [...] Approved by: DR RICARDO HOLM . 06/27/2021 10:40:00[facility]* Diagnosis Routine cervical smear Screening for malignant neoplasm of the cervix documented in this encounter [facility]Idea[facility] Work Phone: evaluation note* Diagnosis Diabetic polyneuropathy associated with type 2 diabetes mellitus (CMS/HCC)- Primary documented in this encounter [facility] HealthcareEvaluation noteNo assessment information availableElyria [...] microalbuminuria, without long-term current use of insulin ([facility])- Primary Other hyperlipidemia (CMS/HCC) Essential hypertension Unspecified essential hypertension Bilateral lower extremity edema Lumbar back pain- Primary Lumbago Hospital discharge follow-up Other follow-up examination Essential hypertension- Primary Unspecified essential hypertension Type 2 diabetes mellitus with diabetic microalbuminuria, without long-term current use of insulin ([facility]) Morbid (severe) obesity due to excess calories (E66.01) Other hyperlipidemia ([facility]/HCC) Lumbar back pain Lumbago Type 2 diabetes mellitus without complication, without long-term current use of insulin ([facility]) Diabetic polyneuropathy associated with type 2 diabetes mellitus ([facility]) Mixed urge and stress incontinence Mixed incontinence urge and stress (male)(female) Snoring Other dyspnea and respiratory abnormality Encounter for long-term (current) use of high-risk medication Encounter for long-term (current) use of other medications Type 2 diabetes mellitus with diabetic microalbuminuria, without long-term current use of insulin ([facility])- Primary Essential hypertension Unspecified essential hypertension Other hyperlipidemia ([facility]) Snoring Other dyspnea and respiratory abnormality Mixed urge and stress incontinence Mixed incontinence urge and stress (male)(female) documented in this encounter [facility] HealthcareEvaluation note* Diagnosis Encounter for screening mammogram for breast cancer- Primary Encounter for screening for malignant neoplasm of colon Type 2 diabetes mellitus without complication, without long-term current use of insulin ([facility]) Upper respiratory tract infection, unspecified type URTI (acute upper respiratory infection) Acute upper respiratory infections of unspecified site Migraine with aura and without status migrainosus, not intractable ([facility])- Primary Type 2 diabetes mellitus without complication, without long-term current use of insulin ([facility]/HCC) Morbid (severe) obesity due to excess calories (E66.01) Body mass index [BMI] 40.0-44.9, adult (Z68.41) Essential hypertension Unspecified essential hypertension Essential hypertension- Primary Unspecified essential hypertension Type 2 diabetes mellitus without complication, without long-term current use of insulin ([facility]) Back spasm Other symptoms referable to back Closed fracture of proximal end of left fibula with routine healing, unspecified fracture morphology, subsequent encounter Closed nondisplaced fracture of second metatarsal bone of left foot with routine healing, subsequent encounter Other hyperlipidemia ([facility]) Hyperuricemia Other abnormal blood chemistry Osteoporosis, unspecified osteoporosis type, unspecified pathological fracture presence ([facility]) Diabetic polyneuropathy associated with type 2 diabetes mellitus ([facility]) Gastroesophageal reflux disease without esophagitis Esophageal reflux Migraine with aura and without status migrainosus, not intractable ([facility]) Hospital discharge follow-up Other follow-up examination Type 2 diabetes mellitus with diabetic microalbuminuria, without long-term current use of insulin ([facility])- Primary Other hyperlipidemia ([facility]) Essential hypertension Unspecified essential hypertension Bilateral lower extremity edema Lumbar back pain- Primary Lumbago Hospital discharge follow-up Other follow-up examination Essential hypertension- Primary Unspecified essential hypertension Type 2 diabetes mellitus with diabetic microalbuminuria, without long-term current use of insulin ([facility]) Morbid (severe) obesity due to excess calories (E66.01) Other hyperlipidemia ([facility]) Lumbar back pain Lumbago Type 2 diabetes mellitus without complication, without long-term current use of insulin ([facility]) Diabetic polyneuropathy associated with type 2 diabetes mellitus ([facility]) Mixed urge and stress incontinence Mixed incontinence urge and stress (male)(female) Snoring Other dyspnea and respiratory abnormality Encounter for long-term (current) use of high-risk medication Encounter for long-term (current) use of other medications Type 2 diabetes mellitus with diabetic microalbuminuria, without long-term current use of insulin ([facility])- Primary Essential hypertension Unspecified essential hypertension Other hyperlipidemia ([facility]) Snoring Other dyspnea and respiratory abnormality Mixed urge and stress incontinence Mixed incontinence urge and stress (male)(female) Lumbar back pain Lumbago documented in this encounter [facility] HealthcareEvaluation note* Diagnosis Essential hypertension- Primary Unspecified essential hypertension Type 2 diabetes mellitus with diabetic microalbuminuria, without long-term current use of insulin ([facility]) Morbid (severe) obesity due to excess calories (E66.01) Other hyperlipidemia ([facility]/HCC) Lumbar back pain Lumbago Type 2 diabetes mellitus without complication, without long-term current use of insulin (CMS/HCC) Diabetic polyneuropathy associated with type 2 diabetes mellitus (CMS/HCC) Mixed urge and stress incontinence Mixed incontinence urge and stress (male)(female) Snoring Other dyspnea and respiratory abnormality documented in this encounter [facility] HealthcareEvaluation note* Diagnosis Gout, unspecified cause, unspecified chronicity, unspecified site documented in this encounter [facility] HealthcareEvaluation note* Diagnosis Diabetic polyneuropathy associated with [...] healing, subsequent encounter Other hyperlipidemia (CMS/[facility]) Hyperuricemia Other abnormal blood chemistry Osteoporosis, [...] Other hyperlipidemia (CMS/HCC) [facility] complication, without long-term current use of insulin ([facility]) Back spasm Other symptoms referable to back Closed fracture of proximal end of left fibula with routine healing, unspecified fracture morphology, subsequent encounter Closed nondisplaced fracture of second metatarsal bone of left foot with routine healing, subsequent encounter Other hyperlipidemia ([facility]) Hyperuricemia Other abnormal blood chemistry Osteoporosis, unspecified osteoporosis type, unspecified pathological fracture presence (CMS/[facility]) Diabetic polyneuropathy associated with type 2 diabetes mellitus (CMS/[facility]) Gastroesophageal reflux disease without esophagitis Esophageal reflux Migraine with aura and without status migrainosus, not intractable ([facility]) Hospital discharge follow-up Other follow-up examination Type 2 diabetes mellitus with diabetic microalbuminuria, without long-term current use of insulin ([facility])- Primary Other hyperlipidemia (CMS/HCC) Essential hypertension Unspecified essential hypertension Bilateral lower extremity edema Lumbar back pain- Primary Lumbago Hospital discharge follow-up Other follow-up examination Essential hypertension- Primary Unspecified essential hypertension Type 2 diabetes mellitus with diabetic microalbuminuria, without long-term current use of insulin ([facility]) Morbid (severe) obesity due to excess calories (E66.01) Other hyperlipidemia (CMS/HCC) Lumbar back pain Lumbago Type 2 diabetes mellitus without complication, without long-term current use of insulin ([facility]) Diabetic polyneuropathy associated with type 2 diabetes mellitus ([facility]) Mixed urge and stress incontinence Mixed incontinence urge and stress (male)(female) Snoring Other dyspnea and respiratory abnormality Encounter for long-term (current) use of high-risk medication Encounter for long-term (current) use of other medications Type 2 diabetes mellitus with diabetic microalbuminuria, without long-term current use of insulin ([facility])- Primary Essential hypertension Unspecified essential hypertension Other hyperlipidemia (CMS/HCC) Snoring Other dyspnea and respiratory abnormality Mixed urge and stress incontinence Mixed incontinence urge and stress (male)(female) Upper respiratory infection with cough and congestion- Primary Lumbar back pain Lumbago Migraine with aura and without status migrainosus, not intractable ([facility]) Type 2 diabetes mellitus with diabetic [...] microalbuminuria, without long-term current use of insulin ([facility]/HCC) Diabetic polyneuropathy associated with type 2 [...] aura and without status migrainosus, not intractable ([facility]) Hospital discharge follow-up Other follow-up examination Type 2 diabetes mellitus with diabetic microalbuminuria, without long-term current use of insulin (CMS/[facility])- Primary Other hyperlipidemia Essential hypertension Unspecified essential hypertension Bilateral lower extremity edema Lumbar back pain- Primary Lumbago Hospital discharge follow-up Other follow-up examination Essential hypertension- Primary Unspecified essential hypertension Type 2 diabetes mellitus with diabetic microalbuminuria, without long-term current use of insulin (CMS/[facility]) Morbid (severe) obesity due to excess calories (E66.01) Other hyperlipidemia Lumbar back pain Lumbago Type 2 diabetes mellitus without complication, without long-term current use of insulin Diabetic polyneuropathy associated with type 2 diabetes mellitus (CMS/[facility]) Mixed urge and stress incontinence Mixed incontinence urge and stress (male)(female) Snoring Other dyspnea and respiratory abnormality Encounter for long-term (current) use of high-risk medication Encounter for long-term (current) use of other medications Type 2 diabetes mellitus with diabetic microalbuminuria, without long-term current use of insulin ([facility])- Primary Essential hypertension Unspecified essential hypertension Other hyperlipidemia Snoring Other dyspnea and respiratory abnormality Mixed urge and stress incontinence Mixed incontinence urge and stress (male)(female) Type 2 diabetes mellitus with diabetic microalbuminuria, without long-term current use of insulin ([facility])- Primary Essential hypertension Unspecified essential hypertension [...] microalbuminuria, without long-term current use of insulin ([facility])- Primary Morbid (severe) obesity due to excess calories ([facility]) Other hyperlipidemia Body mass index (BMI) [...] unspecified osteoporosis type, unspecified pathological fracture presence ([facility]) Diabetic polyneuropathy associated with type 2 diabetes mellitus ([facility]) Gastroesophageal reflux disease without esophagitis Esophageal reflux Migraine with aura and without status migrainosus, not intractable ([facility]) Hospital discharge follow-up Other follow-up examination Type 2 diabetes mellitus with diabetic microalbuminuria, without long-term current use of insulin ([facility])- Primary Other hyperlipidemia Essential hypertension Unspecified essential hypertension Bilateral lower extremity edema Lumbar back pain- Primary Lumbago Hospital discharge follow-up Other follow-up examination Essential hypertension- Primary Unspecified essential hypertension Type 2 diabetes mellitus with diabetic microalbuminuria, without long-term current use of insulin ([facility]) Morbid (severe) obesity due to excess calories (E66.01) Other hyperlipidemia Lumbar back pain Lumbago Type 2 diabetes mellitus without complication, without long-term current use of insulin Diabetic polyneuropathy associated with type 2 diabetes mellitus ([facility]) Mixed urge and stress incontinence Mixed incontinence urge and stress (male)(female) Snoring Other dyspnea and respiratory abnormality Encounter for long-term (current) use of high-risk medication Encounter for long-term (current) use of other medications Type 2 diabetes mellitus with diabetic microalbuminuria, without long-term current use of insulin ([facility])- Primary Essential hypertension Unspecified essential hypertension Other hyperlipidemia Snoring Other dyspnea and respiratory abnormality Mixed urge and stress incontinence Mixed incontinence urge and stress (male)(female) Type 2 diabetes mellitus with diabetic microalbuminuria, without long-term current use of insulin ([facility])- Primary Essential hypertension Unspecified essential hypertension Other hyperlipidemia JANETT (obstructive sleep apnea) Obstructive sleep apnea (adult) (pediatric) Type 2 diabetes mellitus without complication, without long-term current use of insulin Type 2 diabetes mellitus with diabetic microalbuminuria, without long-term current use of insulin ([facility])- Primary Morbid (severe) obesity due to excess calories ([facility]) Other hyperlipidemia Body mass index (BMI) 39.0-39.9, adult JANETT (obstructive sleep apnea) Obstructive sleep apnea (adult) (pediatric) Bilateral lower extremity edema Migraine with aura and without status migrainosus, not intractable ([facility]) Cigarette nicotine dependence without complication Hypercalcemia Essential hypertension Unspecified essential hypertension Elevated blood uric acid level Lumbar back pain Lumbago Gastroesophageal reflux disease without esophagitis Esophageal reflux Chronic gout of multiple sites, unspecified cause Acute pain of right knee Diabetic polyneuropathy associated with type 2 diabetes mellitus (CMS/HCC) Acute non-recurrent sinusitis of other sinus- Primary [facility] unspecified osteoporosis type, unspecified pathological fracture presence ([facility]) Diabetic polyneuropathy associated with type 2 diabetes mellitus ([facility]) Gastroesophageal reflux disease without esophagitis Esophageal reflux Migraine with aura and without status migrainosus, not intractable ([facility]) Hospital discharge follow-up Other follow-up examination Type 2 diabetes mellitus with diabetic microalbuminuria, without long-term current use of insulin ([facility])- Primary Other hyperlipidemia Essential hypertension Unspecified essential hypertension Bilateral lower extremity edema Lumbar back pain- Primary Lumbago Hospital discharge follow-up Other follow-up examination Essential hypertension- Primary Unspecified essential hypertension Type 2 diabetes mellitus with diabetic microalbuminuria, without long-term current use of insulin ([facility]) Morbid (severe) obesity due to excess calories (E66.01) Other hyperlipidemia Lumbar back pain Lumbago Type 2 diabetes mellitus without complication, without long-term current use of insulin Diabetic polyneuropathy associated with type 2 diabetes mellitus ([facility]) Mixed urge and stress incontinence Mixed incontinence urge and stress (male)(female) Snoring Other dyspnea and respiratory abnormality Encounter for long-term (current) use of high-risk medication Encounter for long-term (current) use of other medications Type 2 diabetes mellitus with diabetic microalbuminuria, without long-term current use of insulin ([facility])- Primary Essential hypertension Unspecified essential hypertension Other hyperlipidemia Snoring Other dyspnea and respiratory abnormality Mixed urge and stress incontinence Mixed incontinence urge and stress (male)(female) Type 2 diabetes mellitus with diabetic microalbuminuria, without long-term current use of insulin ([facility])- Primary Essential hypertension Unspecified essential hypertension Other hyperlipidemia JANETT (obstructive sleep apnea) Obstructive sleep apnea (adult) (pediatric) Type 2 diabetes mellitus without complication, without long-term current use of insulin Type 2 diabetes mellitus with diabetic microalbuminuria, without long-term current use of insulin ([facility])- Primary Morbid (severe) obesity due to excess calories ([facility]) Other hyperlipidemia Body mass index (BMI) [...] long-term current use of insulin (CMS/[facility])- Primary Essential hypertension Unspecified essential hypertension Other hyperlipidemia Snoring Other dyspnea and respiratory abnormality Mixed urge and stress incontinence Mixed incontinence urge and stress (male)(female) Type 2 diabetes mellitus with diabetic microalbuminuria, without long-term current use of insulin (CMS/[facility])- Primary Essential hypertension Unspecified essential hypertension Other hyperlipidemia JANETT (obstructive sleep apnea) Obstructive sleep apnea (adult) (pediatric) Type 2 diabetes mellitus without complication, without long-term current use of insulin Type 2 diabetes mellitus with diabetic microalbuminuria, without long-term current use of insulin (CMS/[facility])- Primary Morbid (severe) obesity due to excess calories (CMS/HCC) Other hyperlipidemia Body mass index (BMI) 39.0-39.9, adult JANETT (obstructive sleep apnea) Obstructive sleep apnea (adult) (pediatric) Bilateral lower extremity edema Migraine with aura and without status migrainosus, not intractable (CMS/[facility]) Cigarette nicotine dependence without complication Hypercalcemia Essential hypertension Unspecified essential hypertension Elevated blood uric acid level Lumbar back pain Lumbago Gastroesophageal reflux disease without esophagitis Esophageal reflux Chronic gout of multiple sites, unspecified cause Acute pain of right knee Diabetic polyneuropathy associated with type 2 diabetes mellitus (CMS/HCC) Low serum parathyroid hormone (PTH)- Primary documented [facility] [...] long-term current use of insulin ([facility])- Primary Other hyperlipidemia Essential hypertension Unspecified essential hypertension Bilateral lower extremity edema Lumbar back pain- Primary Lumbago Hospital discharge follow-up Other follow-up examination Essential hypertension- Primary Unspecified essential hypertension Type 2 diabetes mellitus with diabetic microalbuminuria, without long-term current use of insulin ([facility]) Morbid (severe) obesity due to excess calories (E66.01) Other hyperlipidemia Lumbar back pain Lumbago Type 2 diabetes mellitus without complication, without long-term current use of insulin ([facility]) Diabetic polyneuropathy associated with type 2 diabetes mellitus (HCC) Mixed urge and stress incontinence Mixed incontinence urge and stress (male)(female) Snoring Other dyspnea and respiratory abnormality Encounter for long-term (current) use of high-risk medication Encounter for long-term (current) use of other medications Type 2 diabetes mellitus with diabetic microalbuminuria, without long-term current use of insulin ([facility])- Primary Essential hypertension Unspecified essential hypertension Other hyperlipidemia Snoring Other dyspnea and respiratory abnormality Mixed urge and stress incontinence Mixed incontinence urge and stress (male)(female) Type 2 diabetes mellitus with diabetic microalbuminuria, without long-term current use of insulin ([facility])- Primary Essential hypertension Unspecified essential hypertension Other hyperlipidemia JANETT (obstructive sleep apnea) Obstructive sleep apnea (adult) (pediatric) Type 2 diabetes mellitus without complication, without long-term current use of insulin ([facility]) Type 2 diabetes mellitus with diabetic microalbuminuria, without long-term current use of insulin ([facility])- Primary Morbid (severe) obesity due to excess calories ([facility]-HCC) Other hyperlipidemia Body mass index (BMI) [...] long-term current use of insulin ([facility])- Primary Essential hypertension Unspecified essential hypertension [...] long-term current use of insulin ([facility])- Primary Morbid (severe) obesity due to excess calories ([facility]) Other hyperlipidemia Body mass index (BMI) [...] Vitamin D deficiency documented [facility] [...] long-term current use of insulin ([facility]) Back spasm Other symptoms referable to [...] with type 2 diabetes mellitus ([facility]) Gastroesophageal reflux disease without esophagitis Esophageal reflux Migraine with aura and without status migrainosus, not intractable Hospital discharge follow-up Other follow-up examination Type 2 diabetes mellitus with diabetic microalbuminuria, without long-term current use of insulin ([facility])- Primary Other hyperlipidemia Essential hypertension Unspecified essential hypertension Bilateral lower extremity edema Lumbar back pain- Primary Lumbago Hospital discharge follow-up Other follow-up examination Essential hypertension- Primary Unspecified essential hypertension Type 2 diabetes mellitus with diabetic microalbuminuria, without long-term current use of insulin ([facility]) Morbid (severe) obesity due to excess calories (E66.01) Other hyperlipidemia Lumbar back pain Lumbago Type 2 diabetes mellitus without complication, without long-term current use of insulin ([facility]) Diabetic polyneuropathy associated with type 2 diabetes mellitus (HCC) Mixed urge and stress incontinence Mixed incontinence urge and stress (male)(female) Snoring Other dyspnea and respiratory abnormality Encounter for long-term (current) use of high-risk medication Encounter for long-term (current) use of other medications Type 2 diabetes mellitus with diabetic microalbuminuria, without long-term current use of insulin ([facility])- Primary Essential hypertension Unspecified essential hypertension Other hyperlipidemia Snoring Other dyspnea and respiratory abnormality Mixed urge and stress incontinence Mixed incontinence urge and stress (male)(female) Type 2 diabetes mellitus with diabetic microalbuminuria, without long-term current use of insulin ([facility])- Primary Essential hypertension Unspecified essential hypertension Other hyperlipidemia JANETT (obstructive sleep apnea) Obstructive sleep apnea (adult) (pediatric) Type 2 diabetes mellitus without complication, without long-term current use of insulin ([facility]) Type 2 diabetes mellitus with diabetic microalbuminuria, without long-term current use of insulin ([facility])- Primary Morbid (severe) obesity due to excess calories ([facility]) Other hyperlipidemia Body mass index (BMI) [...] Morbid (severe) obesity due to excess calories ([facility]-HCC) Other hyperlipidemia Body mass index (BMI) [...] unspecified cause- Primary documented [facility] [...] with type 2 diabetes mellitus ([facility]) Gastroesophageal reflux disease without esophagitis Esophageal reflux Migraine with aura and without status migrainosus, not intractable Hospital discharge follow-up Other follow-up examination Type 2 diabetes mellitus with diabetic microalbuminuria, without long-term current use of insulin ([facility])- Primary Other hyperlipidemia Essential hypertension Unspecified essential hypertension Bilateral lower extremity edema Lumbar back pain- Primary Lumbago Hospital discharge follow-up Other follow-up examination Essential hypertension- Primary Unspecified essential hypertension Type 2 diabetes mellitus with diabetic microalbuminuria, without long-term current use of insulin ([facility]) Morbid (severe) obesity due to excess calories (E66.01) Other hyperlipidemia Lumbar back pain Lumbago Type 2 diabetes mellitus without complication, without long-term current use of insulin ([facility]) Diabetic polyneuropathy associated with type 2 diabetes mellitus ([facility]) Mixed urge and stress incontinence Mixed incontinence urge and stress (male)(female) Snoring Other dyspnea and respiratory abnormality Encounter for long-term (current) use of high-risk medication Encounter for long-term (current) use of other medications Type 2 diabetes mellitus with diabetic microalbuminuria, without long-term current use of insulin ([facility])- Primary Essential hypertension Unspecified essential hypertension Other hyperlipidemia Snoring Other dyspnea and respiratory abnormality Mixed urge and stress incontinence Mixed incontinence urge and stress (male)(female) Type 2 diabetes mellitus with diabetic microalbuminuria, without long-term current use of insulin ([facility])- Primary Essential hypertension Unspecified essential hypertension Other hyperlipidemia JANETT (obstructive sleep apnea) Obstructive sleep apnea (adult) (pediatric) Type 2 diabetes mellitus without complication, without long-term current use of insulin ([facility]) Type 2 diabetes mellitus with diabetic microalbuminuria, without long-term current use of insulin ([facility])- Primary Morbid (severe) obesity due to excess calories ([facility]) Other hyperlipidemia Body mass index (BMI) [...] long-term current use of insulin ([facility]) [facility] long-term current use of insulin ([facility])- Primary Essential hypertension Unspecified essential hypertension Other hyperlipidemia Snoring Other dyspnea and respiratory abnormality Mixed urge and stress incontinence Mixed incontinence urge and stress (male)(female) Type 2 diabetes mellitus with diabetic microalbuminuria, without long-term current use of insulin ([facility])- Primary Essential hypertension Unspecified essential hypertension Other hyperlipidemia JANETT (obstructive sleep apnea) Obstructive sleep apnea (adult) (pediatric) Type 2 diabetes mellitus without complication, without long-term current use of insulin ([facility]) Type 2 diabetes mellitus with diabetic microalbuminuria, without long-term current use of insulin ([facility])- Primary Morbid (severe) obesity due to excess calories ([facility]) Other hyperlipidemia Body mass index (BMI) [...] long-term current use of insulin ([facility])- Primary Essential hypertension Unspecified essential hypertension Morbid (severe) obesity due to excess calories (E66.01) Cigarette nicotine dependence without complication Chronic gout of multiple sites, unspecified cause Gastroesophageal reflux disease without esophagitis Esophageal reflux Bilateral lower extremity edema [facility] with type 2 diabetes mellitus ([facility]) Gastroesophageal reflux disease without esophagitis Esophageal reflux Migraine with aura and without status migrainosus, not intractable Hospital discharge follow-up Other follow-up examination Type 2 diabetes mellitus with diabetic microalbuminuria, without long-term current use of insulin ([facility])- Primary Other hyperlipidemia Essential hypertension Unspecified essential hypertension Bilateral lower extremity edema Lumbar back pain- Primary Lumbago Hospital discharge follow-up Other follow-up examination Essential hypertension- Primary Unspecified essential hypertension Type 2 diabetes mellitus with diabetic microalbuminuria, without long-term current use of insulin ([facility]) Morbid (severe) obesity due to excess calories (E66.01) Other hyperlipidemia Lumbar back pain Lumbago Type 2 diabetes mellitus without complication, without long-term current use of insulin ([facility]) Diabetic polyneuropathy associated with type 2 diabetes mellitus (HCC) Mixed urge and stress incontinence Mixed incontinence urge and stress (male)(female) Snoring Other dyspnea and respiratory abnormality Encounter for long-term (current) use of high-risk medication Encounter for long-term (current) use of other medications Type 2 diabetes mellitus with diabetic microalbuminuria, without long-term current use of insulin ([facility])- Primary Essential hypertension Unspecified essential hypertension Other hyperlipidemia Snoring Other dyspnea and respiratory abnormality Mixed urge and stress incontinence Mixed incontinence urge and stress (male)(female) Type 2 diabetes mellitus with diabetic microalbuminuria, without long-term current use of insulin ([facility])- Primary Essential hypertension Unspecified essential hypertension Other hyperlipidemia JANETT (obstructive sleep apnea) Obstructive sleep apnea (adult) (pediatric) Type 2 diabetes mellitus without complication, without long-term current use of insulin ([facility]) Type 2 diabetes mellitus with diabetic microalbuminuria, without long-term current use of insulin (HCC)- Primary Morbid (severe) obesity due to excess calories ([facility]) Other hyperlipidemia Body mass index (BMI) [...] long-term current use of insulin ([facility])- Primary Essential hypertension Unspecified essential hypertension [...] long-term current use of insulin ([facility]) Osteoporosis, unspecified osteoporosis type, unspecified pathological fracture presence documented in this encounter [facility] HealthcareEvaluation note* Diagnosis Encounter for screening mammogram for breast cancer- Primary Encounter for screening for malignant neoplasm of colon Type 2 diabetes mellitus without complication, without long-term current use of insulin ([facility]) Upper respiratory tract infection, unspecified type URTI (acute upper respiratory infection) Acute upper respiratory infections of unspecified site Migraine with aura and without status migrainosus, not intractable- Primary Type 2 diabetes mellitus without complication, without long-term current use of insulin ([facility]) Morbid (severe) obesity due to excess calories (E66.01) Body mass index [BMI] 40.0-44.9, adult (Z68.41) Essential hypertension Unspecified essential hypertension Essential hypertension- Primary Unspecified essential hypertension Type 2 diabetes mellitus without complication, without long-term current use of insulin ([facility]) Back spasm Other symptoms referable to [...] with type 2 diabetes mellitus ([facility]) Gastroesophageal reflux disease without esophagitis Esophageal reflux Migraine with aura and without status migrainosus, not intractable Hospital discharge follow-up Other follow-up examination Type 2 diabetes mellitus with diabetic microalbuminuria, without long-term current use of insulin ([facility])- Primary Other hyperlipidemia Essential hypertension Unspecified essential hypertension Bilateral lower extremity edema Lumbar back pain- Primary Lumbago Hospital discharge follow-up Other follow-up examination Essential hypertension- Primary Unspecified essential hypertension Type 2 diabetes mellitus with diabetic microalbuminuria, without long-term current use of insulin ([facility]) Morbid (severe) obesity due to excess calories (E66.01) Other hyperlipidemia Lumbar back pain Lumbago Type 2 diabetes mellitus without complication, without long-term current use of insulin ([facility]) Diabetic polyneuropathy associated with type 2 diabetes mellitus ([facility]) Mixed urge and stress incontinence Mixed incontinence urge and stress (male)(female) Snoring Other dyspnea and respiratory abnormality Encounter for long-term (current) use of high-risk medication Encounter for long-term (current) use of other medications Type 2 diabetes mellitus with diabetic microalbuminuria, without long-term current use of insulin ([facility])- Primary Essential hypertension Unspecified essential hypertension Other hyperlipidemia Snoring Other dyspnea and respiratory abnormality Mixed urge and stress incontinence Mixed incontinence urge and stress (male)(female) Type 2 diabetes mellitus with diabetic microalbuminuria, without long-term current use of insulin ([facility])- Primary Essential hypertension Unspecified essential hypertension Other hyperlipidemia JANETT (obstructive sleep apnea) Obstructive sleep apnea (adult) (pediatric) Type 2 diabetes mellitus without complication, without long-term current use of insulin ([facility]) Type 2 diabetes mellitus with diabetic microalbuminuria, without long-term current use of insulin ([facility])- Primary Morbid (severe) obesity due to excess calories ([facility]) Other hyperlipidemia Body mass index (BMI) [...] with type 2 diabetes mellitus ([facility]) Type 2 diabetes mellitus with diabetic [...] diabetes mellitus (HCC) [facility] [...] long-term current use of insulin ([facility])- Primary Essential hypertension Unspecified essential hypertension Other hyperlipidemia Snoring Other dyspnea and respiratory abnormality Mixed urge and stress incontinence Mixed incontinence urge and stress (male)(female) Type 2 diabetes mellitus with diabetic microalbuminuria, without long-term current use of insulin ([facility])- Primary Essential hypertension Unspecified essential hypertension Other hyperlipidemia JANETT (obstructive sleep apnea) Obstructive sleep apnea (adult) (pediatric) Type 2 diabetes mellitus without complication, without long-term current use of insulin ([facility]) Type 2 diabetes mellitus with diabetic microalbuminuria, without long-term current use of insulin ([facility])- Primary Morbid (severe) obesity due to excess calories ([facility]) Other hyperlipidemia Body mass index (BMI) [...] long-term current use of insulin ([facility])- Primary Essential hypertension Unspecified essential hypertension [...] long-term current use of insulin ([facility]) Upper respiratory tract infection, unspecified type URTI (acute upper respiratory infection) Acute upper respiratory infections of unspecified site Migraine with aura and without status migrainosus, not intractable- Primary Type 2 diabetes mellitus without complication, without long-term current use of insulin ([facility]) Morbid (severe) obesity due to excess calories (E66.01) Body mass index [BMI] 40.0-44.9, adult (Z68.41) Essential hypertension Unspecified essential hypertension Essential hypertension- Primary Unspecified essential hypertension Type 2 diabetes mellitus without complication, without long-term current use of insulin ([facility]) Back spasm Other symptoms referable to [...] with type 2 diabetes mellitus ([facility]) Gastroesophageal reflux disease without esophagitis Esophageal reflux Migraine with aura and without status migrainosus, not intractable Hospital discharge follow-up Other follow-up examination Type 2 diabetes mellitus with diabetic microalbuminuria, without long-term current use of insulin ([facility])- Primary Other hyperlipidemia Essential hypertension Unspecified essential hypertension Bilateral lower extremity edema Lumbar back pain- Primary Lumbago Hospital discharge follow-up Other follow-up examination Essential hypertension- Primary Unspecified essential hypertension Type 2 diabetes mellitus with diabetic microalbuminuria, without long-term current use of insulin ([facility]) Morbid (severe) obesity due to excess calories (E66.01) Other hyperlipidemia Lumbar back pain Lumbago Type 2 diabetes mellitus without complication, without long-term current use of insulin ([facility]) Diabetic polyneuropathy associated with type 2 diabetes mellitus ([facility]) Mixed urge and stress incontinence Mixed incontinence urge and stress (male)(female) Snoring Other dyspnea and respiratory abnormality Encounter for long-term (current) use of high-risk medication Encounter for long-term (current) use of other medications Type 2 diabetes mellitus with diabetic microalbuminuria, without long-term current use of insulin ([facility])- Primary Essential hypertension Unspecified essential hypertension Other hyperlipidemia Snoring Other dyspnea and respiratory abnormality Mixed urge and stress incontinence Mixed incontinence urge and stress (male)(female) Type 2 diabetes mellitus with diabetic microalbuminuria, without long-term current use of insulin ([facility])- Primary Essential hypertension Unspecified essential hypertension Other hyperlipidemia JANETT (obstructive sleep apnea) Obstructive sleep apnea (adult) (pediatric) Type 2 diabetes mellitus without complication, without long-term current use of insulin ([facility]) Type 2 diabetes mellitus with diabetic microalbuminuria, without long-term current use of insulin ([facility])- Primary Morbid (severe) obesity due to excess calories ([facility]) Other hyperlipidemia Body mass index (BMI) [...] long-term current use of insulin ([facility])- Primary Essential hypertension Unspecified essential hypertension Morbid (severe) obesity due to excess calories (E66.01) Cigarette nicotine dependence without complication Chronic gout of multiple sites, unspecified cause Gastroesophageal reflux disease without esophagitis Esophageal reflux Bilateral lower extremity edema Other hyperlipidemia documented in this encounter [facility] HealthcareEvaluation note* Diagnosis Encounter for screening mammogram for breast cancer- Primary Encounter for screening for malignant neoplasm of colon Type 2 diabetes mellitus without complication, without long-term current use of insulin ([facility]) Upper respiratory tract infection, unspecified type URTI (acute upper respiratory infection) Acute upper respiratory infections of unspecified site Migraine with aura and without status migrainosus, not intractable- Primary Type 2 diabetes mellitus without complication, without long-term current use of insulin ([facility]) Morbid (severe) obesity due to excess calories (E66.01) Body mass index [BMI] 40.0-44.9, adult (Z68.41) Essential hypertension Unspecified essential hypertension Essential hypertension- Primary Unspecified essential hypertension Type 2 diabetes mellitus without complication, without long-term current use of insulin ([facility]) Back spasm Other symptoms referable to [...] long-term current use of insulin ([facility])- Primary Other hyperlipidemia Essential hypertension Unspecified essential hypertension Bilateral lower extremity edema Lumbar back pain- Primary Lumbago Hospital discharge follow-up Other follow-up examination Essential hypertension- Primary Unspecified essential hypertension Type 2 diabetes mellitus with diabetic microalbuminuria, without long-term current use of insulin ([facility]) Morbid (severe) obesity due to excess calories (E66.01) Other hyperlipidemia Lumbar back pain Lumbago Type 2 diabetes mellitus without complication, without long-term current use of insulin ([facility]) Diabetic polyneuropathy associated with type 2 diabetes mellitus ([facility]) Mixed urge and stress incontinence Mixed incontinence urge and stress (male)(female) Snoring Other dyspnea and respiratory abnormality Encounter for long-term (current) use of high-risk medication Encounter for long-term (current) use of other medications Type 2 diabetes mellitus with diabetic microalbuminuria, without long-term current use of insulin ([facility])- Primary Essential hypertension Unspecified essential hypertension Other hyperlipidemia Snoring Other dyspnea and respiratory abnormality Mixed urge and stress incontinence Mixed incontinence urge and stress (male)(female) Type 2 diabetes mellitus with diabetic microalbuminuria, without long-term current use of insulin ([facility])- Primary Essential hypertension Unspecified essential hypertension Other hyperlipidemia JANETT (obstructive sleep apnea) Obstructive sleep apnea (adult) (pediatric) Type 2 diabetes mellitus without complication, without long-term current use of insulin ([facility]) Type 2 diabetes mellitus with diabetic microalbuminuria, without long-term current use of insulin ([facility])- Primary Morbid (severe) obesity due to excess calories ([facility]) Other hyperlipidemia Body mass index (BMI) [...] with type 2 diabetes mellitus ([facility]) Type 2 diabetes mellitus with diabetic microalbuminuria, without long-term current use of insulin ([facility])- Primary Essential hypertension Unspecified essential hypertension [...] History tubal ligation Hospitalization History see above [place] Other Reason for referral (narrative)* Consultation (Routine) - Pending Review Specialty Diagnoses / Procedures Referred By Darren acharya Referred To Contact Neurology Diagnoses Snoring Procedures MI OFFICE/OUTPATIENT NEW HIGH MDM 60 MINUTES Sonam Drake NP [address] [place] [address] Sivan Banda DO [address] [place] [address] Referral ID Status Reason Start Date Expiration Date Visits Requested Visits Authorized [id number] Pending Review Specialty Services Required 10/03/2023 03/31/2024 1 1 Scheduling Instructions Please include OV note from today * Consultation (Routine) - Pending Review Specialty Diagnoses / Procedures Referred By Darren acharya Referred To Contact Urology Diagnoses Mixed urge and stress incontinence Procedures MI OFFICE/OUTPATIENT NEW HIGH [facility] 60 MINUTES Sonam Drake NP [address] [place] [address] Skinny Villafuerte MD [address] [place] [address] Referral ID Status Reason Start Date Expiration Date Visits Requested Visits Authorized [id number] Pending Review Specialty Services Required 10/03/2023 03/31/2024 1 1 [facility] (narrative)No reason for referral [facility] Work Phone: Summary Purpose Family History [...] Care Teams (unrecognized sec tion and content) Corporate Claims Examiner Relationship Specialty Start Date End Date Sr Jonathan Edwards DO [address] [place] [address] PCP - General Family Medicine 08/30/21 Corporate Claims Examiner Relationship Specialty Start Date End Date Shaikh [...] April 30, 2023 End: April 30, 2023 Corporate Claims Examiner Relationship Specialty Start Date End Date Jose Chandler MD [address] [place] [address] PCP - General Family Medicine 12/12/23 Sonam Drake NP [address] [place] [phone] Nurse Practitioner Family Medicine 09/24/23 Corporate Claims Examiner Relationship Specialty Start Date End Date Jose Chandler MD [address] [place] [address] PCP - General Family Medicine 12/12/23 Sonam Drake NP [address] [place] [address] Nurse Practitioner Family Medicine 09/24/23 Corporate Claims Examiner Relationship Specialty Start Date End Date Jose Chandler MD [address] [place] [phone] PCP - General Family Medicine 12/12/23 Sonam Drake NP [address] [place] [address] Nurse Practitioner Family Medicine 09/24/23 Corporate Claims Examiner Relationship Specialty Start Date End Date Jose Chandler MD [address] [place] [phone] PCP - General Family Medicine 12/12/23 Sonam Drake NP [address] [place] [address] Nurse Practitioner Family Medicine 09/24/23 Corporate Claims Examiner Relationship Specialty Start Date End Date Jose Chandler MD [address] [place] [phone] PCP - General Family Medicine 12/12/23 Sonam Drake NP [address] [place] [address] Nurse Practitioner Family Medicine 09/24/23 Corporate Claims Examiner Relationship Specialty Start Date End Date Jose Chandler MD [address] [place] [phone] PCP - General Family Medicine 12/12/23 Sonam Drake NP [address] [place] [address] Nurse Practitioner Family Medicine 09/24/23 Corporate Claims Examiner Relationship Specialty Start Date End Date Jose Chandler MD [address] [place] [phone] PCP - General Family Medicine 09/24/23 Sonam Drake NP [address] [place] [address] Nurse Practitioner Family Medicine 09/24/23 Corporate Claims Examiner Relationship Specialty Start Date End Date Jose Chandler MD [address] [place] [phone] PCP - General Family Medicine 09/24/23 Sonam Drake NP [address] [place] [address] Nurse Practitioner Family Medicine 09/24/23 Corporate Claims Examiner Relationship Specialty Start Date End Date Jose Chandler MD [address] [place] [phone] PCP - General Family Medicine 09/24/23 Sonam Drake NP [address] [place] [address] Nurse Practitioner Family Medicine 09/24/23 Corporate Claims Examiner Relationship Specialty Start Date End Date Jose Chandler MD [address] [place] [phone] PCP - General Family Medicine 09/24/23 Sonam Drake NP [address] [place] [address] Nurse Practitioner Family Medicine 09/24/23 Corporate Claims Examiner Relationship Specialty Start Date End Date Jose Chanlder MD [address] [place] [address] PCP - General Family Medicine 12/12/23 Sonam Drake NP [address] [place] [address] Nurse Practitioner Family Medicine 09/24/23 Corporate Claims Examiner Relationship Specialty Start Date End Date Jose Chandler MD [address] [place] [phone] PCP - General Family Medicine 12/12/23 Sonam Drake NP [address] [place] [address] Nurse Practitioner Family Medicine 09/24/23 Corporate Claims Examiner Relationship Specialty Start Date End Date Jose Chandler MD [address] [place] [phone] PCP - General Family Medicine 12/12/23 Sonam Drake NP [address] [place] [address] Nurse Practitioner Family Medicine 09/24/23 Corporate Claims Examiner Relationship Specialty Start Date End Date Jose Chandler MD [address] [place] [phone] PCP - General Family Medicine 12/12/23 Sonam Drake NP [address] [place] [address] Nurse Practitioner Family Medicine 09/24/23 Corporate Claims Examiner Relationship Specialty Start Date End Date Jose Chandler MD [address] [place] [address] PCP - General Family Medicine 12/12/23 Sonam Drake NP [address] [place] [address] Nurse Practitioner Family Medicine 09/24/23 Corporate Claims Examiner Relationship Specialty Start Date End Date Jose Chandler MD [address] [place] [address] PCP - General Family Medicine 12/12/23 Sonam Drake NP [address] [place] [address] Nurse Practitioner Family Medicine 09/24/23 Corporate Claims Examiner Relationship Specialty Start Date End Date Jose Chandler MD [address] [place] [address] PCP - General Family Medicine 12/12/23 Sonam Drake NP [address] [place] [address] Nurse Practitioner Family Medicine 09/24/23 Corporate Claims Examiner Relationship Specialty Start Date End Date Jose Chandler MD [address] [place] [address] PCP - General Family Medicine 12/12/23 Sonam Drake NP [address] [place] [address] Nurse Practitioner Family Medicine 09/24/23 Corporate Claims Examiner Relationship Specialty Start Date End Date Jose Chandler MD [address] [place] [address] PCP - General Family Medicine 12/12/23 Sonam Drake NP [address] [place] [address] Nurse Practitioner Family Medicine 09/24/23 Corporate Claims Examiner Relationship Specialty Start Date End Date Jose Chandler MD [address] [place] [address] PCP - General Family Medicine 12/12/23 Sonam Drake NP [address] [place] [address] Nurse Practitioner Family Medicine 09/24/23 Corporate Claims Examiner Relationship Specialty Start Date End Date Jose Chandler MD [address] [place] [address] PCP - General Family Medicine 12/12/23 Sonam Drake NP Nurse Practitioner Family Medicine 09/24/23 Za Wilkerson NP [address] [place], [place] Nurse Practitioner Neurology 04/21/24 Sivan Banda DO [address] [place] [address] Referring Physician Neurology 04/21/24 Corporate Claims Examiner Relationship Specialty Start Date End Date Jose Chandler MD [address] [place] [address] PCP - General Family Medicine 12/12/23 Sonam Drake NP Nurse Practitioner Family Medicine 09/24/23 Za Wilkerson, RONALDO [address] [place] [address] Nurse Practitioner Neurology 04/21/24 Sivan Banda DO [address] [place], [place] [address] Referring Physician Neurology 04/21/24 Corporate Claims Examiner Relationship Specialty Start Date End Date Jose Chandler MD [address] [place] [address] PCP - General Family Medicine 12/12/23 Sonam Drake NP Nurse Practitioner Family Medicine 09/24/23 Za Wilkerson, RONALDO [address] [place], [place] [address] Nurse Practitioner Neurology 04/21/24 Sivan Banda DO [address] [place] [address] Referring Physician Neurology 04/21/24 Corporate Claims Examiner Relationship Specialty Start Date End Date Jose Chandler MD [address] [place] [address] PCP - General Family Medicine 12/12/23 Sonam Drake NP Nurse Practitioner Family Medicine 09/24/23 Za Wilkerson NP [address] [place], [place] Nurse Practitioner Neurology 04/21/24 Sivan Banda DO [address] [place] [address] Referring Physician Neurology 04/21/24 Corporate Claims Examiner Relationship Specialty Start Date End Date Jose Chandler MD [address] [place] [address] PCP - General Family Medicine 12/12/23 Sonam Drake NP Nurse Practitioner Family Medicine 09/24/23 Za Wilkerson NP [address] [place], [place] Nurse Practitioner Neurology 04/21/24 Sivan Banda DO [address] [place] [address] Referring Physician Neurology 04/21/24 Corporate Claims Examiner Relationship Specialty Start Date End Date Jose Chandler MD [address] [place] [address] PCP - General Family Medicine 12/12/23 Sonam Drake NP Nurse Practitioner Family Medicine 09/24/23 Za Wilkerson NP [address] [place], [place] Nurse Practitioner Neurology 04/21/24 Sivan Banda DO [address] [place] [address] Referring Physician Neurology 04/21/24 Corporate Claims Examiner Relationship Specialty Start Date End Date Jose Chandler MD [address] [place] [address] PCP - General Family Medicine 12/12/23 Sonam Drake NP Nurse Practitioner Family Medicine 09/24/23 Za Wilkerson NP [address] [place], [place] Nurse Practitioner Neurology 04/21/24 Sivan Banda DO [address] [place], [place] [phone] Referring Physician Neurology 04/21/24 Team Status: Active [...] May 28, 2024 End: May 28, 2024 Corporate Claims Examiner Relationship Specialty Start Date End Date Jose Chandler MD [address] [place] [address] PCP - General Family Medicine 12/12/23 Sonam Drake NP Nurse Practitioner Family Medicine 09/24/23 Za Wilkerson NP [address] [place], [place] Nurse Practitioner Neurology 04/21/24 Sivan Banda DO [address] [place] [address] Referring Physician Neurology 04/21/24 Corporate Claims Examiner Relationship Specialty Start Date End Date Jose Chandler MD [address] [place] [address] PCP - General Family Medicine 12/12/23 Sonam Drake NP Nurse Practitioner Family Medicine 09/24/23 Za Wilkerson NP [address] [address] [place], [place] Nurse Practitioner Neurology 04/21/24 Sivan Banda DO [address] [place], [place] [address] Referring Physician Neurology 04/21/24 Corporate Claims Examiner Relationship Specialty Start Date End Date Jose Chandler MD [address] [place] [address] PCP - General Family Medicine 12/12/23 Sonam Drake NP Nurse Practitioner Family Medicine 09/24/23 Za Wilkerson NP [address] [place], [place] Nurse Practitioner Neurology 04/21/24 Sivan Banda DO [address] [place] [address] Referring Physician Neurology 04/21/24 Corporate Claims Examiner Relationship Specialty Start Date End Date Jose Chandler MD [address] [place] [address] PCP - General Family Medicine 12/12/23 Sonam Drake NP Nurse Practitioner Family Medicine 09/24/23 Za Wilkerson, RONALDO [address] [place] [address] Nurse Practitioner Neurology 04/21/24 Sivan Banda DO [address] [place], [place] [address] Referring Physician Neurology 04/21/24 Corporate Claims Examiner Relationship Specialty Start Date End Date Jose Chandler MD [address] [place] [address] PCP - General Family Medicine 12/12/23 Sonam Drake NP Nurse Practitioner Family Medicine 09/24/23 Za Wilkerson, RONALDO [address] [place] [address] Nurse Practitioner Neurology 04/21/24 Sivan Banda DO [address] [place] [address] Referring Physician Neurology 04/21/24 Corporate Claims Examiner Relationship Specialty Start Date End Date Jose Chandler MD [address] [place] [address] PCP - General Family Medicine 12/12/23 Sonam Drake NP Nurse Practitioner Family Medicine 09/24/23 Za Wilkerson NP [address] [place] [address] Nurse Practitioner Neurology 04/21/24 Sivan Banda DO [address] [place] [address] Referring Physician Neurology 04/21/24 Corporate Claims Examiner Relationship Specialty Start Date End Date Jose Chandler MD [address] [place] [address] PCP - General Family Medicine 12/12/23 Sonam Drake NP Nurse Practitioner Family Medicine 09/24/23 Za Wilkerson NP [address] [place] [address] Nurse Practitioner Neurology 04/21/24 Sivan Banda DO [address] [place] [address] Referring Physician Neurology 04/21/24 Corporate Claims Examiner Relationship Specialty Start Date End Date Jose Chandler MD [address] [place] [address] PCP - General Family Medicine 12/12/23 Sonam Drake NP Nurse Practitioner Family Medicine 09/24/23 Za Wilkerson NP [address] [place] [address] Nurse Practitioner Neurology 04/21/24 Sivan Banda DO [address] [place] [address] Referring Physician Neurology 04/21/24 Corporate Claims Examiner Relationship Specialty Start Date End Date Jose Chandler MD [address] [place] [address] PCP - General Family Medicine 12/12/23 Sonam Drake NP Nurse Practitioner Family Medicine 09/24/23 Za Wilkerson, RONALDO [address] [place] [address] Nurse Practitioner Neurology 04/21/24 Sivan Banda DO [address] [place] [address] Referring Physician Neurology 04/21/24 Corporate Claims Examiner Relationship Specialty Start Date End Date Jose Chandler MD [address] [place] [address] PCP - General Family Medicine 12/12/23 Sonam Drake NP Nurse Practitioner Family Medicine 09/24/23 Za Wilkerson NP [address] [place] [address] Nurse Practitioner Neurology 04/21/24 Sivan Banda DO [address] [place] [address] Referring Physician Neurology 04/21/24 Corporate Claims Examiner Relationship Specialty Start Date End Date Jose Chandler MD [address] [place] [address] PCP - General Family Medicine 12/12/23 Sonam Drake NP Nurse Practitioner Family Medicine 09/24/23 Za Wilkerson NP [address] [place] [address] Nurse Practitioner Neurology 04/21/24 Sivan Banda DO [address] [place] [address] Referring Physician Neurology 04/21/24 Corporate Claims Examiner Relationship Specialty Start Date End Date Jose Chandler MD [address] [place] [address] PCP - General Family Medicine 12/12/23 Sonam Drake NP Nurse Practitioner Family Medicine 09/24/23 Za Wilkerson, RONALDO [address] [place] [address] Nurse Practitioner Neurology 04/21/24 Sivan Banda DO [address] [place] [address] Referring Physician Neurology 04/21/24 Corporate Claims Examiner Relationship Specialty Start Date End Date Jose Chandler MD [address] [place] [address] PCP - General Family Medicine 12/12/23 Sonam Drake NP Nurse Practitioner Family Medicine 09/24/23 Za Wilkerson NP [address] [place] [address] Nurse Practitioner Neurology 04/21/24 Sivan Banda DO [address] [place] [address] Referring Physician Neurology 04/21/24 Team Status: Inactive Member Role Status Dates Ameena Vera Primary Care Provider Active Sta rt: October 19, 2024 End: October 19, 2024 Ameena Vera Attending Provider Active Start: October 19, 2024 End: October 19, 2024 Corporate Claims Examiner Relationship Specialty Start Date End Date Jose Chandler MD PCP - General Family Medicine 12/12/23 Sonam Drake NP Nurse Practitioner Family Medicine 09/24/23 Za Wilkerson NP Nurse Practitioner Neurology 04/21/24 Sivan Banda DO [address] [place] [address] Referring Physician Neurology 04/21/24 Corporate Claims Examiner Relationship Specialty Start Date End Date Jose Chandler MD PCP - General Family Medicine 12/12/23 Sonam Drake NP Nurse Practitioner Family Medicine 09/24/23 Za Wilkerson NP Nurse Practitioner Neurology 04/21/24 Sivan Banda DO [address] [place] [address] Referring Physician Neurology 04/21/24 Team Status: Active Member Role Status Dates SABA Tracey Primary Care Provider Active Team Status: Inactive Member Role Status Dates SBAA Tracey Primary Care Provider Active Start: October [...] CREATED AUTHOR AUTHOR'S ORGANIZ ATION 06/08/2022 [facility] DATE CREATED AUTHOR AUTHOR'S ORGANIZ ATION 10/06/2023 [facility] DATE CREATED AUTHOR AUTHOR'S ORGANIZ ATION 06/01/2024 [facility] DATE CREATED AUTHOR AUTHOR'S ORGANIZ ATION 10/28/2024 [facility] DATE CREATED AUTHOR AUTHOR'S ORGANIZ ATION 11/02/2024 [facility] EPIC REASON FOR VISIT [...] Diagnoses Low serum parathyroid hormone (PTH) Procedures [place] OFFICE/OUTPATIENT NEW HIGH MDM 60 MINUTES Ameena Vera, RONALDO [address] [place] [address] Phone: tel: fax: Kasi Bennett MD [address] [place] [address] Phone: tel: fax: Referral ID Status Reason Start Date Expiration Date Visits Requested Visits Authorized [id number] Pending Review Specialty Services Required 07/14/2024 01/10/2025 [...] BE BASED ON THE PRIMARY CLINICAL RECORDS. [employer] provides no warranty or guarantee of the accuracy or completeness of information in this document.
[2024-11-30 11:14] LABS: Uric Acid 3.9 mg/dL (2.6-6.0)
--- NOTE | 2024-11-30 11:20 | XR_ITS ---
[facility] [place] [address] Patient Name: KARINA DE OLIVEIRA MRN: [id number] date: 1965 Sex: F Assigned Patient Location: LAB Current Patient Location: LAB Accession/Order Number: [id number] Exam Date: 11/30/2024 11:15 Report Date: 11/30/2024 14:25 At the request of: JOEL EDWARDS NP Procedure: XR wrist LT min 3V LEFT WRIST - 3 views COMPARISON: None CLINICAL DATA: Chronic left wrist pain and swelling. History of gout. AP, lateral and oblique views were obtained. There is no acute fracture or dislocation. There is no significant joint space narrowing or prominent hypertrophy. There is minor soft tissue swelling. XR/XR wrist LT min 3V IMPRESSION: NO ACUTE BONY FINDINGS. Impression dictated by: Queta Culp M.D. 11/30/2024 2:25 PM Dictation Location: [place] [address] Electronically authenticated by: [id number] Y Date: 11/30/2024 14:25
== END 2024-11-30 10:54 | disposition home or self-care (01) ==
LOC: LAB 10:54
PROVIDERS: PCP Nurse Practitioner; Visit Provider Nurse Practitioner
DX: M25.532 Pain in left wrist (principal); M1A.09X0 Idiopathic chronic gout, multiple sites, without tophus (tophi)
CPT/HCPCS: 36415; 73110; 84550; 85652

== ENCOUNTER 2024-12-30 10:21 | Outpatient (OUT) | payer OTHER, MEDICARE, SELFPAY ==
--- OUTSIDE RECORDS SUMMARY | 2024-12-30 10:27 | XMS_ITS | CCD ---
Author Organization [facility] Care Team Providers Care Reo Asset Manager Name Role Phone House DO, Sr Jonathan Klein Primary Care Provider [phone] BARCLAYRADHA Referring Unavailabl e HOUSE, SR JONATHAN [...] Unavailable HOUSE, DR BASURTO Primary Care Unavailable HAZLETON, DR RYAN Guzman Consulting Unavailable HOUSE, DR [...] Primary Care Unavailable HOLM ., DR RICARDO Belhcer Admitting Unavailable HOLM ., DR RICARDO Belcher Attending Unavailable LAKSHMIPATHY ., BILLY Consulting Nellie vailable HOUSE, DR BASURTO Primary Care Unavailable HOLM ., DR RICARDO Belcher Admitting Unavailable HOLM ., DR RICARDO Belcher Attending Unavailable PIERCE ., CRYS Consulting Unavailable Elle Hendricks Unavailable Maricel HOLLIS, [facility] Primary Care Provider Vidal CAR STEREO INSTALLER, Sonam Unavailable Ramesh HOLLIS, Jose Primary Care Provider Jose Chandler MD Primary Care Provider [phone] Vidal CAR STEREO INSTALLER, Sonam Unavailable Rock HIGGINS, Za Unavailable [phone] Sivan Banda DO Unavailable Lui Banks II Attending UnavailLui Alvarado II Admitting Unavailcurtis e NON STAFF Primary Care Unavailable NON STAFF Primary Care Provider UnavailLui Alvarado MD Attending Provider Rock HIGGINS, Za Unavailable [phone] Ameena Vera Primary Care Provider Ameena Vera Attending Provider Jose Chandler MD Primary Care Provider [phone] Rock HIGGINS, Za Unavailable SONAM DRAKE Attending UnavailSONAM Sheffield Attending UnavailALICIA Reese Attending Unavailable ZA WILKERSON Attending Unavailable AMEENA VERA Attending Unavailable KASI BENNETT Attending Unavailable AMEENA VERA Referring Unavailable AMEENA VERA Attending Unavailable KASI BENNETT Attending Unavailable VIDAL, SONAM Attending UnavailSIVAN Cruz Attending Unavailable VIDAL, SONAM Referring Unavailcurtis Vera CAR STEREO INSTALLER-C, Ameena Shah Primary Care Provider Chyu CAR STEREO INSTALLER-C, Ameena Shah Attending Provider [phone] Kasi Bennett MD Attending Provider [phone] Keo HOLLIS, Andrius Esposito Attending Unavailable Keo HOLLIS, Andri Vbhargav Attending Unavailable Keo HOLLIS, Andri Vbhargav Attending Unavailable Lui Banks MD Attending Provider Maricel HOLLIS, Barrios Primary Care Provider Jose Chandler MD Primary Care Provider UnallocatCris rubi MD Provider Primary Care Provi shayna Rock HIGGINS, Za Unavailable Sivan Banda DO Unavailable Maricel HOLLIS, [facility] Primary Care Provider [phone] Medications Current Medications MedicationDrug Class(es)DatesSig (Normalized)Sig (Original)acetaminophen 325 mg / oxyCODONE hydrochloride 5 mg oral tablet (20 sources)Opioid AgonistStart: 10-31-8251uwxs 1 tablet by mouth every twenty- four hours as neededoxyCODONE-acetaminophen (Percocet) 5-325 MG tablet Take 1 tablet by mouth Daily as needed 07/01/2024 ActiveStart: 07-20-2022 End: 99-38-4760qhtg 1 tablet by mouth once dailyoxyCODONE-acetaminophen (Percocet) 5-325 MG tablet Take 1 tablet by mouth Daily 07/20/2022 12/31/2023 Discontinued (Med list cleanup)Start: 95-53-9768yoof 1 tablet by mouth every six hoursPercocet 10-325 MG 1 tablet as needed Orally every 6 hrs Activetake 1 tablet by mouth once as neededoxyCODONE-acetaminophen (PERCOCET) 10-325 MG per tablet Percocet 10 mg-325 mg tablet Take 1 tablet as needed by oral route. 0 Activealendronic acid 70 mg oral tablet (20 sources)BisphosphonateStart: 14-14-0632lyhd 1 tablet by mouth every week Start: 03-09-2024 End: 99-52-2187nkjz 1 tablet by mouth in the morningalendronate (Fosamax) 70 MG tablet Indications: Osteoporosis, unspecified osteoporosis type, unspecified pathological fracture presence Take 1 tablet (70 mg) by mouth every 7 (seven) days Take in themorning with a full glass of water, on an empty stomach, and do not take anything else by mouth or lie down for the next 30 min. 12 tablet 1 08/31/2024 02/15/2025 ActiveStart: 07-04-2023 End: 43-37-4644bycx 1 tablet by mouth in the morningalendronate (Fosamax) 70 MG tablet Indications: Osteoporosis, unspecified osteoporosis type, unspecified pathological fracture presence (CMS/[facility]) Take 1 tablet (70 mg) by mouth every 7 (seven) days Take in the morning with a full glass of water, on an empty stomach, and do not take anything else bymouth or lie down for the next 30 min. 12 tablet 1 07/04/2023 12/31/2023 Discontinued (Med list cleanup)Start: 56-38-3098wwbx 1 tablet by mouth oncealendronate (FOSAMAX) 70 MG tablet TAKE 1 TABLET BY MOUTH EVERY SATURDAY 0 08/17/2021 ActiveStart: 01-12-2017 End: 93-07-4073ovhp 1 tablet by mouth every weekAlendronate (Fosamax) 70 mg Tablet Discontinued 70 MG PO every week January 12, 2017 1:00am January 15, 2017 2:22pmtake 1 tablet by mouth in the morningalendronate (Fosamax) 70 MG tablet Take 70 mg by mouth every 7 (seven) days Take in the morning with a full glass of water, on an empty stomach, and do not take anything else by mouth or lie down forthe next 30 min. 0 Activeallopurinol 300 mg oral tablet (20 sources)Xanthine Oxidase InhibitorStart: 07-04-2023 End: 82-85-1515lpvs 1 tablet by mouth once dailytake 1 tablet by mouth every twenty-four hoursAllopurinol 300 MG 1 tablet Orally Once a day ActiveALLOPURINOL PO Take by mouth 0 Activeamoxicillin 875 mg / clavulanate 125 mg oral tablet (4 sources)Penicillin-class AntibacterialStart: 06-11-2024 End: 25-32-8713jklv 1 tablet by mouth in the morningamoxicillin-clavulanate (Augmentin) 875-125 MG tablet Indications: Acute non-recurrent sinusitis ofother sinus Take 1 tablet (875 mg) by mouth in the morning and 1 tablet (875 mg) before bedtime. Doall this for 10 days. Take with food. 20 tablet 06/11/2024 06/21/2024 ActiveStart: 03-03-2024 End: 48-73-2149rbkj 1 tablet by mouth in the morningamoxicillin-clavulanate (Augmentin) 875-125 MG tablet Indications: Upper respiratory infection withcough and congestion Take 1 tablet (875 mg) by mouth in the morning and 1 tablet (875 mg) before bedtime. Do all this for 7 days. 14 tablet 03/03/2024 03/10/2024 ActiveAspir-81 81 MG (5 sources)take 1 tablet by mouth once dailyAspir-81 81 MG 1 tablet Orally Once a day Activeaspirin 81 mg delayed release oral tablet (6 sources)Platelet Aggregation Inhibitor, Nonsteroidal Anti-inflammatory Drug Start: 60-97-6321jogcnoeoiue 200 mg oral capsule (3 sources)Non-narcotic AntitussiveStart: 03-03-2024 End: 15-49-9313umux 1 capsule by mouth three times daily as needed for cough benzonatate (Tessalon) 200 MG capsule Indications: Upper respiratory infection with cough and congestion Take 1 capsule (200 mg) by mouth 3 (three) times a day as needed for cough for up to 7 days Donot crush or chew. 20 capsule 03/03/2024 03/10/2024 Activechlorhexidine gluconate 40 mg/ml medicated liquid soap (1 source)Start: 03-43-4285gyaevolsgjupt (Hibiclens) 4 % external liquid Indications: Hidradenitis suppurativa Lather onto affected areas on the body and rinse from the neck down, avoiding the face, 30 day supply 118 mL 11 02/25/2023 Activecholecalciferol 0.025 mg oral capsule (1 source)Vitamin Dtake 1 capsule by mouth in the morningcholecalciferol (Vitamin D-3) 25 MCG (1000 UT) capsule Take 1,000 Units by mouth in the morning. 0 Activecolchicine 0.6 mg oral tablet (20 sources)Start: 73-42-1246gtqe 1 tablet by mouth every twenty-four hours Start: 05-28-2024 End: 40-97-2414ughb 1 tablet by mouth once dailyColchicine 0.6 mg tablet Discontinued 0.6 MG PO Daily May 28, 2024 12:00am November 11, 2024 10:51am Start: 03-03-2024 End: 48-92-8424bugjmvxmhf 0.6 MG tablet Indications: Chronic gout of multiple sites, unspecified cause TAKE 2 TABLETS BY MOUTH AT ONSET OF ACUTE GOUT, MAY TAKE 1 TABLET IN 1 HOURS. NO MORE THAN 3 TABLETS DAILY 15 tablet 1 08/05/2024 ActiveStart: 12-18-2023 End: 86-85-9036cxtrxcyxqh 0.6 MG tablet Indications: Gout, unspecified cause, unspecified chronicity, unspecified site TAKE 2 TABLETS BY MOUTH AT ONSET OF ACUTE GOUT, MAY TAKE 1 TABLET IN 1 HOURS. NO MORE THAN 3 TABLETS DAILY 30 tablet 12/18/2023 12/31/2023 Discontinued (Med list cleanup)Start: 03-06-2023 End: 49-90-3301jrmjzlekso 0.6 MG tablet Indications: Gout, unspecified cause, unspecified chronicity, unspecified site TAKE 2 TABLETS BY MOUTH AT ONSET OF ACUTE GOUT, MAY TAKE 1 TABLET IN HOUR. NO MORE THAN 3 TABLETS IN ONE DAY 30 tablet 03/06/2023 11/04/2023 Discontinued (Reorder)Start: 05-02-2022 End: 31-42-2287qztpivqiun 0.6 MG tablet Indications: Gout, unspecified cause, unspecified chronicity, unspecified site Take 1 tablet (0.6 mg) by mouth See administration instructions TAKE 2 TABLETS BY MOUTH AT ONSET OF ACUTE GOUT, MAY TAKE 1 TABLET IN HOUR. NO MORE THAN 3 TABLETS IN ONE DAY 30 tablet 11/04/2023 DiscontinuedContinuous Glucose Drug Abuse Counselor (Dexcom G7 Drug Abuse Counselor) device (20 sources)Start: 28-12-8622Bhsdcruiru Glucose Drug Abuse Counselor (Dexcom G7 Drug Abuse Counselor) device Indications: Type 2 diabetes mellitus with diabetic microalbuminuria, without long-term current use of insulin (HCC) 1 each continuously 1 each 03/03/2024 ActiveStart: 30-95-4258Khxroamqie Glucose Drug Abuse Counselor (Dexcom G7 Drug Abuse Counselor) device Indications: Type 2 diabetes mellitus with diabetic microalbuminuria, without long-term current use of insulin ([facility]/HCC) 1 each continuously 1 each 03/03/2024 ActiveContinuous Glucose Sensor (Dexcom G7 Sensor) misc (20 sources)Start: 08-05-2024 End: 50-73-9206Hlezycwyzm Glucose Sensor (Dexcom G7 Sensor[place] [facility] [place]: Type 2 diabetes mellitus with diabetic microalbuminuria, without long-term current use of insulin ([facility]) 1 each continuously 3 each 11 08/05/2024 09/04/2024 ActiveStart: 03-30-2024 End: 49-40-7865Jerutimxxb Glucose Sensor (Dexcom G7 Sensor) misc Indications: Type 2 diabetes mellitus with diabetic microalbuminuria, without long-term current use of insulin (HCC) 1 each continuously 3 each 11 03/30/2024 08/05/2024 Discontinued (Reorder)Start: 96-24-8881Ngizadhgve Glucose Sensor (Dexcom G7 Sensor) [facility] Indications: Type 2 diabetes mellitus with diabetic microalbuminuria, without long-term current use of insulin ([facility]) 1 each continuously 3 each 11 03/30/2024 ActiveStart: 22-75-6861Zstmiorqyt Glucose Sensor (Dexcom G7 Sensor) misc Indications: Type 2 diabetes mellitus with diabetic microalbuminuria, without long-term current use of insulin ([facility]/HCC) 1 each continuously 3 each 11 03/30/2024 ActiveStart: 03-03-2024 End: 52-43-5572Hmgisbuzvn Glucose Sensor (Dexcom G7 Sensor) [facility] [place]ications: Type 2 diabetes mellitus with diabetic microalbuminuria, without long-term current use of insulin ([facility]/HCC) 1 each continuously 3 each 11 03/03/2024 03/30/2024 Discontinued (Reorder)Start: 11-52-5048Eqvkebqske Glucose Sensor (Dexcom G7 Sensor) [facility] [place]ications: Type 2 diabetes mellitus with diabetic microalbuminuria, without long-term current use of insulin ([facility]) 1 each continuously 3 each 03/03/2024 Activediclofenac sodium 75 mg delayed release oral tablet (20 sources)Nonsteroidal Anti-inflammatory DrugStart: 07-04-2023 End: 81-00-1516akro 1 tablet by mouth once in the morningdiclofenac (Voltaren) 75 MG EC tablet Indications: Back spasm , Closed fracture of proximal end of l eft fibula with routine healing, unspecified fracture morphology, subsequent encounter , Closed nondisplaced fracture of second metatarsal bone of left foot with routine healing, subsequent encounterTake 1 tablet (75 mg) by mouth in the morning and 1 tablet (75 mg) before bedtime. Do not crush, chew, or split.. 180 tablet 1 07/04/2023 12/31/2023 ExpiredStart: 08-07-2021 End: 37-90-7326vddg 1 tablet by mouth twice dailyVoltaren Activefamotidine 20 mg oral tablet (20 sources)Histamine-2 Receptor AntagonistStart: 08-20-2024 End: 88-67-4566exri 1 tablet by mouth twice dailyStart: 05-19-2024 End: 30-90-6458jeqx 1 tablet by mouth once dailyFamotidine (Pepcid) 20 mg tablet Discontinued 20 MG PO Daily May 28, 2024 12:00am October 19, 2024 7:56am Start: 03-16-2024 End: 57-58-8005qtmo 1 tablet by mouth in the morningfamotidine (Pepcid) 20 MG tablet Indications: Gastroesophageal reflux disease without esophagitis Take 1 tablet (20 mg) by mouth in the morning and 1 tablet (20 mg) before bedtime. 180 tablet 1 05/19/2024 08/17/2024 ActiveStart: 07-04-2023 End: 68-49-5315zwnf 1 tablet by mouth once dailyfamotidine (Pepcid) 20 MG tablet Indications: Gastroesophageal reflux disease without esophagitis Take 1 tablet (20 mg) by mouth Daily 90 tablet 1 07/04/2023 03/16/2024 DiscontinuedStart: 26-97-0839qcka 1 tablet by mouth once dailyfamotidine (PEPCID) 20 MG tablet TAKE 1 TABLET BY MOUTH EVERY DAY 0 08/16/2021 Activefluticasone propionate 0.05 mg/actuat metered dose nasal spray (20 sources)CorticosteroidStart: 03-03-2024 End: 60-95-4642pfzx 1-2 spray(s) nasal route once dailyfluticasone (Flonase) 50 MCG/ACT nasal spray Indications: Upper respiratory infection with cough and congestion Administer 1-2 sprays into each nostril Daily Shake gently. Before first use, prime pump. After use, clean tip and replace cap. 16 g 2 03/03/2024 08/20/2024 Discontinued (Therapy completed)furosemide 20 mg oral tablet (20 sources)Loop DiureticStart: 08-05-2023 End: 31-77-3947bwap 1 tablet by mouth once daily as neededglimepiride 1 mg oral tablet (10 sources)SulfonylureaStart: 09-03-2023 End: 54-71-4906tphr 1 tablet by mouth once dailyglimepiride (Amaryl) 1 MG tablet 1 mg 1/2 po every day 09/03/2023 03/03/2024 DiscontinuedStart: 38-31-2480dzdi 0.5 tablet by mouth once daily in the morningglimepiride (AMARYL) 1 MG tablet TAKE 1/2 TABLET BY MOUTH EVERY MORNING 0 06/05/2021 ActivehydroCHLOROthiazide 25 mg oral tablet (7 sources)Thiazide DiureticStart: 40-41-7687asad 1 tablet by mouth once daily hydroCHLOROthiazide (HYDRODIURIL) 25 MG tablet TAKE 1 TABLET BY MOUTH EVERY DAY 0 08/16/2021 ActiveStart: 01-12-2017 End: 46-52-9803lnvp 1 tablet by mouth once dailyHydrochlorothiazide 25 mg Tablet Discontinued 25 MG PO Daily January 12, 2017 1:00am January 15, 2017 2:23pm methocarbamol 750 mg oral tablet (6 sources)Muscle RelaxantStart: 91-78-7750moqv 1 tablet by mouth once daily at bedtimemethocarbamol (ROBAXIN) 750 MG tablet TAKE 1 TABLET BY MOUTH EVERY NIGHT AT BEDTIME 0 08/15/2021 ActiveStart: 01-12-2017 End: 85-43-4426inzm 1 tablet by mouth at bedtime as needed for painMethocarbamol (Robaxin-750) 750 mg Tablet Discontinued 750 MG PO Bedtime as needed for Muscle Pain January 12, 2017 1:00am January 15, 2017 2:23pmmethylPREDNISolone 4 mg oral tablet (1 source)CorticosteroidMedrol 4 MG as directed Orally As Directed for 6 days ActiveMultivitamins (5 sources)Multivitamins Orally ActiveOsteo Bi-Flex Adv Double St (5 sources)Osteo Bi-Flex Adv Double St Orally ActiveOzempic (0.25 or 0.5 MG/DOSE) (3 sources)Ozempic (0.25 or 0.5 MG/DOSE) ActivepredniSONE 20 mg oral tablet (5 sources)Start: 03-03-2024 End: 58-82-6013hmrx 1 tablet by mouth once dailypredniSONE (Deltasone) 20 MG tablet Indications: Upper respiratory infection with cough and congestion Take 1 tablet (20 mg) by mouth Daily for 5 days 5 tablet 03/03/2024 03/08/2024 Active Start: 08-18-2023 End: 51-82-3737mbxq 1 tablet by mouth once dailypredniSONE (Deltasone) 50 MG tablet Take 50 mg by mouth Daily 08/18/2023 10/03/2023 Discontinued (Therapy completed)Probiotic (5 sources)Probiotic ActiveraNITIdine 150 mg oral tablet (5 sources)Histamine-2 Receptor Antagonisttake 1 tablet by mouth twice daily Ranitidine HCl 150 MG 1 Tablet Orally bid ActiveRobaxin-750 750 MG (5 sources)take 1 tablet by mouth every four hoursRobaxin-750 750 MG 1 tablet Orally every 4 hrs Activerosuvastatin calcium 20 mg oral tablet (20 sources)HMG-CoA Reductase InhibitorStart: 07-04-2023 End: 91-45-2555inpt 1 tablet by mouth once dailytake 1 tablet by mouth every twenty-four hoursCrestor 20 MG 1 tablet Orally Once a day ActiveSemaglutide (3 sources)Start: 20-74-1040gufaqj 2 mg by subcutaneous injection every week Start: 72-13-3840wswmhb 2 mg by subcutaneous injection every weekSemaglutide (Ozempic) 2 mg/dose (8 mg/3 mL) pen injector Active 2 MG SUBCUT every week May 28, 2024 12:00am Complies with drug therapySemaglutide (Ozempic) 2 mg/dose (8 mg/3 mL) pen injector (1 source)Start: 54-62-3056zptrkw 2 mg by subcutaneous injection every week Semaglutide (Ozempic) 2 mg/dose (8 mg/3 mL) pen injector Active 2 MG SUBCUT every week May 28, 2024 12:00amSemaglutide, 2 MG/DOSE, (Ozempic, 2 MG/DOSE,) 8 MG/3ML solution pen-injector (20 sources)Start: 73-27-0162Fpjsbxcxizt, 2 MG/DOSE, (Ozempic, 2 MG/DOSE,) 8 MG/3ML solution pen-injector Indications: Type 2 diabetes mellitus with diabetic microalbuminuria, without long-term current use of insulin (HCC) Inject 2 mg under the skin every 7 (seven) days 9 mL 1 05/19/2024 ActiveStart: 05-19-2024 End: 73-96-8712Nraqsdnnygv, 2 MG/DOSE, (Ozempic, 2 MG/DOSE,) 8 MG/3ML solution pen-injector Indications: Type 2 diabetes mellitus with diabetic microalbuminuria, without long-term current use of insulin (HCC) Inject 2 mg under the skin every 7 (seven) days 9 mL 1 05/19/2024 08/11/2024 ActiveStart: 05-19-2024 End: 82-54-7981Stanxjtxixj, 2 MG/DOSE, (Ozempic, 2 MG/DOSE,) 8 MG/3ML solution pen-injector Indications: Type 2 diabetes mellitus with diabetic microalbuminuria, without long-term current use of insulin (CMS/HCC) Inject 2 mg under the skin every 7 (seven) days 9 mL 1 05/19/2024 08/11/2024 ActivetraZODone hydrochloride 50 mg oral tablet (1 source)Serotonin Reuptake InhibitorStart: 35-23-2248qtrn 1 tablet by mouth once daily at bedtimetraZODone (DESYREL) 50 MG tablet TAKE 1 TABLET BY MOUTH EVERY NIGHT AT BEDTIME 0 08/17/2021 Activedivalproex sodium 500 mg delayed release oral tablet (20 sources)Mood Stabilizer, Anti-epileptic AgentStart: 07-04-2023 End: 74-26-1471tnoh 1 tablet by mouth in the morningdivalproex (Depakote) 500 MG EC tablet Indications: Migraine with aura and without status migrainosus, not intractable Take 1 tablet (500 mg) by mouth in the morning and 1 tablet (500 mg) before bedtime. Do not crush, chew, or split. 180 tablet 1 08/31/2024 02/27/2025 ActiveStart: 04-57-2699ijae 1 tablet by mouth twice dailytake 1 tablet by mouth every twelve hoursDepakote 500 mg 1 tablet Orally twice a day ActiveVitamin C 500 MG (2 sources)Vitamin C 500 MG Orally Active Completed/Discontinued Medications MedicationDrug Class(es)DatesSig (Normalized)Sig (Original)ascorbic acid 100 mg oral tablet (9 sources)Vitamin CStart: 01-12-2017 End: 19-18-0617ffpt 5 tablets by mouth once dailyAscorbic Acid (Vitamin C) (Vitamin C) 100 mg Tablet Discontinued 500 MG PO Daily January 12, 20171:00am January 15, 2017 2:22pmVitamin C 500 MG Orally Activetake 1 tablet by mouth once dailyascorbic acid (VITAMIN C) 500 MG tablet Vitamin C 500 mg tablet Take 1 tablet every day by oral route. 0 Activebaclofen 20 mg oral tablet (20 sources)gamma-Aminobutyric Acid-ergic AgonistStart: 10-19-2024 End: 73-82-9879lppx 1 tablet by mouth every twelve hours as needed for muscle spasmsBaclofen 20 mg tablet Discontinued 20 MG PO Every 12 hours as needed for spasms October 191:56am October 19, 2024 12:12pm Spasm of back muscles Muscle spasm of backStart: 10-19-2024 End: 13-44-7714wsse 1 tablet by mouth twice daily as needed for muscle spasms Start: 05-28-2024 End: 55-66-9454jkej 1 tablet by mouth twice dailyBaclofen 20 mg tablet Discontinued 20 MG PO Twice daily May 28, 2024 12:00am October 19, 2024 7:56amStart: 08-22-2023 End: 57-38-0943yrxl 1 tablet by mouth three times daily as needed for muscle spasmsBaclofen 20 mg tablet Discontinued 20 MG PO Three times daily as needed for spasms October 19, 2024 7:54am October 19, 2024 12:05pm Spasm of back muscles Muscle spasm of backtake 1 tablet by mouth at bedtimebaclofen (Lioresal) 10 MG tablet Take 10 mg by mouth at bedtime 0 Activeclindamycin 10 mg/ml topical lotion (13 sources)Lincosamide AntibacterialStart: 02-25-2023 End: 59-47-4589ozaielaqpzv (Cleocin T) 1 % lotion Indications: Hidradenitis suppurativa Apply thin later to affected areas on the body every day during flares, 30 day supply 60 mL 02/25/2023 12/31/2023 Discontinued (Med list cleanup)eletriptan 40 mg oral tablet (11 sources)Serotonin-1b and Serotonin-1d Receptor AgonistStart: 01-12-2017 End: 39-36-6630Zzbvrtqvie (Relpax) 40 mg Tablet Discontinued 40 MG PO as needed for Migraine Headache January 12, 2017 1:00am May 28, 2024 1:17pmtake 1 tablet by mouth every twenty-four hoursRelpax 40 MG 1 tablet as needed one time Orally Once a day Activeindomethacin 50 mg oral capsule (5 sources)Nonsteroidal Anti-inflammatory DrugStart: 01-12-2017 End: 75-58-5363szra 1 capsule by mouth twice dailyIndomethacin 50 mg Capsule Discontinued 50 MG PO Twice daily January 12, 2017 1:00am January 15, 2017 2:23pm goutlactobacillus acidophilus 1.5 mg oral capsule (5 sources)Start: 01-12-2017 End: 27-98-8635Oielwrpsqmzxy Acidophilus (Probiotic Acidophilus) 1.5 mg (250 million cell) Capsule Discontinued PODaily January 12, 2017 1:00am January 15, 2017 2:23pmlansoprazole 30 mg delayed release oral capsule (5 sources)Proton Pump InhibitorStart: 01-12-2017 End: 79-99-4575pver 1 capsule by mouth once dailyLansoprazole 30 mg Capsule,Delayed Release(Dr/Ec) Discontinued 30 MG PO Daily January 12, 2017 1:00am October 19, 2024 7:54ammetFORMIN hydrochloride 500 mg oral tablet (20 sources)BiguanideStart: 63-42-6734wbiEBFXDW (GLUCOPHAGE) 500 MG tablet 1,000 mg in the morning and 1,000 mg in the evening. Take withmeals. 0 08/07/2021 ActiveStart: 01-12-2017 End: 69-15-9068uaxy 1 tablet by mouth twice dailyMetformin 500 mg tablet Discontinued 500 MG PO Twice daily May 28, 2024 12:00am October 19, 2024 7:54amtake 1 tablet by mouth at mealtime, then take 1 tablet by mouth every twenty-four hoursmetFORMIN, OSM, (Fortamet) 1000 MG 24 hr tablet Take 1,000 mg by mouth in the evening. Take with meals Do not crush, chew, or split. 0 Active Vspzkzmtlfyj-Qc-Ergf-Minerals (Multiple Vitamin, Womens) Tablet (5 sources)Start: 01-12-2017 End: 85-69-2128Upvdedcnldxn-Xl-Yeff-Obeezclh (Multiple Vitamin, Womens) Tablet Discontinued PO Daily January 1:00am January 15, 2017 2:23pm pregabalin 75 mg oral capsule (20 sources)Start: 10-19-2024 End: 96-03-5010mjti 2 capsules by mouth once daily at bedtimePregabalin 75 mg capsule Discontinued 150 MG PO Daily at bedtime October 19, 2024 11:58am October 19, 2024 12:14pmStart: 09-24-2024 End: 52-23-7694tpkd 1 capsule by mouth three times dailyPregabalin 75 mg capsule Discontinued 75 MG PO Three times daily October 19, 2024 7:56am October 19, 2024 12:05pmStart: 09-05-2023 End: 08-77-8943tbxe 1 capsule by mouth twice dailyPregabalin 75 mg capsule Discontinued 75 MG PO Twice daily October 19, 2024 12:13pm October 19, 2024 12:23pmStart: 03-21-2023 End: 69-55-3856qcxs 1 capsule by mouth in the morning, then take 1 capsule by mouth in the evening, then take 1 capsule by mouth at bedtimepregabalin (Lyrica) 75 MG capsule Indications: Diabetic polyneuropathy associated with type 2 diabet es mellitus (CMS/HCC) Take 1 capsule (75 mg) by mouth in the morning and 1 capsule (75 mg) in the evening and 1 capsule (75 mg) before bedtime. 270 capsule 0 03/21/2023 06/19/2023 ActiveStart: 01-12-2017 End: 51-19-4286dzwo 1 capsule by mouth once dailyPregabalin 50 mg capsule Discontinued 50 MG PO Daily January 12, 2017 1:00am May 28, 2024 1:24pm back painStart: 01-12-2017 End: 59-40-7460tztl 2 capsules by mouth at bedtimePregabalin 50 mg capsule Discontinued 100 MG PO Bedtime January 12, 2017 1:00am May 28, 2024 1:23pm back painStart: 94-27-7301ifel 100 mg by mouth at bedtimePregabalin Active 100 MG PO Bedtime January 12, 2017 1:00am End: 52-46-6488gdmd 1 capsule by mouth every eight hoursLyrica 50 MG 1 capsule Orally Three times a day Activetake 1 capsule by mouth twice dailypregabalin (LYRICA) 50 MG capsule Lyrica 50 mg capsule Take 1 capsule twice a day by oral route. 0 Activerizatriptan 10 mg oral tablet (20 sources)Serotonin-1b and Serotonin-1d Receptor AgonistStart: 05-28-2024 End: 26-91-4178uzwc 1 tablet by mouth every two hoursRizatriptan (Maxalt) 10 mg tablet Discontinued 0 PO .COMPLEX May 28, 2024 12:00am November 1:17pm take 1 tab at onset of headache; if no relief may repeat 1 tab after at least 2 hrs; max = 3 tabs/24 hr POStart: 05-21-2023 End: 26-83-6318vpqwwyfnpcs (Maxalt) 10 MG tablet Indications: Migraine with aura and without status migrainosus, not intractable Take 1 tablet (10 mg) by mouth 1 (one) time if needed for migraine May repeat in 2 hours if unresolved. Do not exceed 30 mg in 24 hours. 9 tablet 12/17/2023 Active1 mg dose 1.5 ml semaglutide 1.34 mg/ml pen injector (12 sources)Start: 03-30-2024 End: 76-01-9706tqwcae 2 mg by subcutaneous injection every weeksemaglutide (Ozempic) 2 MG/1.5ML solution pen-injector Indications: Type 2 diabetes mellitus with diabetic microalbuminuria, without long-term current use of insulin (CMS/HCC) Inject 2 mg under the skin 1 (one) time per week 2 each 5 03/30/2024 05/19/2024 Discontinued (Therapy completed)semaglutide (Ozempic, 1 MG/DOSE,) 4 MG/3ML solution pen-injector (15 sources)Start: 10-03-2023 End: 43-72-6134ituuzs 1 mg by subcutaneous injection every weeksemaglutide (Ozempic, 1 MG/DOSE,) 4 MG/3ML solution pen-injector Indications: Type 2 diabetes mellitus without complication, without long-term current use of insulin (CMS/HCC) Inject 1 mg under the skin 1 (one) time per week 9 mL 1 10/03/2023 12/31/2023 Discontinued (Med list cleanup)Start: 10-03-2023 End: 91-34-2297gwwlhr 1 mg by subcutaneous injection every weeksemaglutide (Ozempic, 1 MG/DOSE,) 4 MG/3ML solution pen-injector Indications: Type 2 diabetes mellitus without complication, without long-term current use of insulin (CMS/HCC) Inject 1 mg under the skin 1 (one) time per week 9 mL 1 10/03/2023 01/01/2024 ActiveStart: 07-04-2023 End: 01-29-9633mokhdz 1 mg by subcutaneous injection every weeksemaglutide (Ozempic, 1 MG/DOSE,) 4 MG/3ML solution pen-injector Indications: Type 2 diabetes mellitus without complication, without long-term current use of insulin (CMS/HCC) Inject 1 mg under the skin 1 (one) time per week 9 mL 1 07/04/2023 10/03/2023 Discontinued (Reorder)Start: 99-37-5009lzskjd 1 mg by subcutaneous injection every weeksemaglutide (Ozempic, 1 MG/DOSE,) 4 MG/3ML solution pen- injector Indications: Type 2 diabetes mellitus without complication, without long-term current use of insulin (CMS/HCC) Inject 1 mg under the skin 1 (one) time per week 9 mL 1 07/04/2023 ActiveStart: 01-29-2023 End: 17-80-6044uenxfp 1 mg by subcutaneous injection every weeksemaglutide (Ozempic, 1 MG/DOSE,) 4 MG/3ML solution pen-injector Indications: Type 2 diabetes mellitus without complication, without long-term current use of insulin (CMS/HCC) Inject 1 mg under the skin 1 (one) time per week 9 mL 0 01/29/2023 04/29/2023 Activetriamcinolone acetonide 40 mg/ml injectable suspension (3 sources)CorticosteroidStart: 43-88-4538Iwogpua-40 Mar, 20 mgStart: 09-17-1500Vziufbx-40 Jan, 30 mg Problems Active Problems Problem ClassificationProblemDateDocumented DateEpisodic/ChronicAcute and unspecified renal failure (5 sources)Acute renal failure syndrome; Translations: [Acute kidney failure, unspecified]54-03-0581UjbmrtioNwpkxid on above:Problem List clean-up per request of Phys. EHR CmteDiabetes mellitus with complications (20 sources)Polyneuropathy due to type 2 diabetes mellitus; Translations: [Type 2 diabetes mellitus with diabetic polyneuropathy]Onset: 924533-81-6162 ChronicDiabetes mellitus without complication (13 sources)Type 2 diabetes mellitus without complications; Translations: [Type 2 diabetes mellitus without complication]Onset: 93-95-4439BojtxlaNktsjfyda of lipid metabolism (20 sources)Hyperlipidemia; Translations: [Other hyperlipidemia]Onset: 619796-88-4597QbpozdpVwncgjasor disorders (8 sources)Gastroesophageal reflux disease without esophagitis; Translations: [Gastro-esophageal reflux disease without esophagitis]34-31-6381NaemuydFcdbaajrx hypertension (20 sources)Essential (primary) hypertension; Translations: [Hypertensive disorder]Onset: 927906-66-4011LemlzzzDwzlgblptvmlm symptoms and ill- defined conditions (20 sources)Incontinence; Translations: [Mixed incontinence]Onset: 10-03-2023 76-96-8907XamwqyzJknd and other crystal arthropathies (20 sources)Gout; Translations: [Gout, unspecified]Onset: 32-59-7609Oswtyfs Headache; including migraine (20 sources)Migraine with aura; Translations: [Migraine with aura, not intractable, without status migrainosus]Onset: 562257-76-0605Xfbjcsb Miscellaneous mental health disorders (4 sources)Primary insomnia; Translations: [Primary insomnia]57-19-5196Tnzlome Nutritional deficiencies (4 sources)Vitamin D deficiency; Translations: [Vitamin D deficiency, unspecified]05-76-0393AcsdmzgWrfdowqweqxqcx (17 sources)Bilateral primary osteoarthritis of knee; Translations: [Arthritis of first carpometacarpal joint of left hand]Onset: 02-25-5508BxskcniMvxonrbtxpjg (2 sources)Osteoporosis; Translations: [Age-related osteoporosis without current pathological fracture]33-83-6240DmfucpwVfghy congenital anomalies (2 sources)Non-neoplastic nevus; Translations: [Congenital non-neoplastic nevus] 57-10-4203QrdjftdBiorc connective tissue disease (2 sources)Pain in left handEpisodicOther connective tissue disease (1 source)Personal history of other diseases of the musculoskeletal system and connective tissueEpisodicOther endocrine disorders (1 source)Hormone level - -24-2607QawpdhqzLfkkr hereditary and degenerative nervous system conditions (5 sources)Restless legs; Translations: [Restless legs syndrome]01-23-2023 ChronicComment on above:Problem List clean-up per request of Phys. EHR CmteOther nervous system disorders (1 source)Other chronic pain; Translations: [OTHER CHRONIC PAIN]Onset: 94-48-4960QdohmvoIbrje nervous system disorders (5 sources)Numbness of face; Translations: [Anesthesia of skin]01-23-2023 EpisodicComment on above:Problem List clean-up per request of Phys. EHR Cmte Other non-traumatic joint disorders (4 sources)Pain in right wristEpisodicOther non-traumatic joint disorders (4 sources)Pain of left wrist; Translations: [Pain in left wrist]11-23-2024 EpisodicOther nutritional; endocrine; and metabolic disorders (20 sources)Hypercalcemia; Translations: [Hypercalcemia]Onset: 05-19-2024 70-38-3282TqxaoieIiuenvw on above:Problem List clean-up per request of Phys. EHR CmteOther nutritional; endocrine; and metabolic disorders (20 sources)Obesity caused by energy imbalance; Translations: [Morbid (severe) obesity due to excess calories]Onset: 960200-89-4120NywoxrmKkbsl nutritional; endocrine; and metabolic disorders (20 sources)Body mass index 40+ - severely obese; Translations: [Body mass index (BMI) 40.0-44.9, adult]Onset: 442978-73-9851GozzpdiHpknl nutritional; endocrine; and metabolic disorders (20 sources)Body mass index 30+ - obesity; Translations: [Body mass index (BMI) 39.0-39.9, adult]Onset: 817859-67-1499CaykjxgPpzpm nutritional; endocrine; and metabolic disorders (7 sources)Morbid obesity; Translations: [Morbid (severe) obesity due to excess calories]48-22-6239QifixdeElqds nutritional; endocrine; and metabolic disorders (2 sources)Hypomagnesemia; Translations: [Hypomagnesemia]98-79-8579HeozbnePoszs skin disorders (2 sources)Lentiginosis; Translations: [Other melanin hyperpigmentation] 23-99-7906ZemorsfcZiwkb skin disorders (2 sources)Hidradenitis suppurativa; Translations: [Hidradenitis suppurativa] 73-41-0997LpekiyeeFdtcyuiu codes; unclassified (20 sources)Obstructive sleep apnea syndrome; Translations: [Obstructive sleep apnea (adult) (pediatric)]Onset: 736008-66-8664OsmaxngNgvwekcq codes; unclassified (4 sources)Hypersomnia; Translations: [Hypersomnia, unspecified]12-31-2023 ChronicResidual codes; unclassified (4 sources)Tobacco user; Translations: [Tobacco use]80-16-9988Nsbatnxv Spondylosis; intervertebral disc disorders; other back problems (11 sources)Spondylosis without myelopathy or radiculopathy, lumbar region; Translations: [Spondylosis without myelopathy or radiculopathy, lumbosacral region]Onset: 15-32-1952TcjuyzyVnhwvftae-related disorders (20 sources)Tobacco dependence caused by cigarettes; Translations: [Nicotine dependence, cigarettes, uncomplicated]Onset: hronic Unclassified (4 sources)LOW BACK PAIN, UNSPECIFIED; Translations: [LOW BACK PAIN, UNSPECIFIED]Onset: 06-23-2021 Past or Other Problems Problem ClassificationProblemDateDocumented DateEpisodic/ChronicFracture of lower limb (20 sources)Metatarsal bone fracture; Translations: [Fracture of unspecified metatarsal bone(s), unspecified foot, initial encounter for closed fracture] Onset: 769168-37-4446TllfjqpxJydbpddfeunwa symptoms and ill-defined conditions (20 sources)Increased frequency of urination; Translations: [Frequency of micturition]Onset: 949298-54-5128YrpcfoncWwsif aftercare (20 sources)Post-discharge follow-up; Translations: [Encounter for follow-up examination after completed treatment for conditions other than malignant neoplasm]Onset: 07-04-2023 Resolved: 762439-32-1827KnckwjhgMqnps and unspecified benign neoplasm (20 sources)Melanocytic nevus of trunk; Translations: [Melanocytic nevi of trunk]Onset: 224268-37-2241ZkcovseqYdtly connective tissue disease (4 sources)Other muscle spasm; Translations: [OTHER MUSCLE SPASM]Onset: 07-33-0458RqsyxztmDkmuk connective tissue disease (4 sources)Pain in right foot; Translations: [PAIN IN RIGHT FOOT]Onset: 18-60-4034MqdvkyjdSuhbz injuries and conditions due to external causes (4 sources)Unspecified injury of right wrist, hand and finger(s), initial encounter; Translations: [UNS INJ RTWRIST HAND FINGERS INIT]Onset: 11-16-2021 EpisodicOther lower respiratory disease (20 sources)Snoring; Translations: [Snoring]Onset: 517484-01-6674Ptdxvznj Other non-epithelial cancer of skin (20 sources)Basal cell carcinoma of nose; Translations: [Basal cell carcinoma of skin of nose]Onset: 967721-28-7520JewcztbwTpcsp non-traumatic joint disorders (4 sources)Pain in left knee; Translations: [PAIN IN LEFT KNEE]Onset: 02-16-2022 EpisodicOther non-traumatic joint disorders (20 sources)Pain in right knee; Translations: [Pain in joint, lower leg]Onset: 775614-84-0114UflixtzcPdqby nutritional; endocrine; and metabolic disorders (20 sources)Hyperuricemia; Translations: [Hyperuricemia without signs of inflammatory arthritis and tophaceous disease]Onset: 05-19-2024 Resolved: 810603-20-7207SeorsmrhYsrkl screening for suspected conditions (not mental disorders or infectious disease) (20 sources)Patient encounter status; Translations: [Encounter for screening for malignant neoplasm of cervix]Onset: 58-15-6348YtuidkqsRczeo upper respiratory infections (20 sources)Acute upper respiratory infection; Translations: [Acute upper respiratory infection, unspecified]Onset: 01-29-2023 Resolved: 493920-62-7288FidnlsrlNbwxswna codes; unclassified (20 sources)Bilateral lower limb edema; Translations: [Localized edema]Onset: 215674-14-3330PdaphgvmQmqwujmzycq; intervertebral disc disorders; other back problems (20 sources)Muscle spasm of back; Translations: [Sacrococcygeal disorders, not elsewhere classified]Onset: 636962-15-4989CnopqpfePoattuqfsegv (1 source)LOW BACK PAIN, UNSPECIFIED; Translations: [LOW BACK PAIN, UNSPECIFIED] Onset: 35-23-6363Wkznnjsztvmm (2 sources)Acute pain of right ampi20-56-1182 Results Test NameValueInterpretationReference RangeFacilityLaboratory - Chemistry and Chemistry - challengeOrdered By: Ameena Vera on 57-10-9236Cqjxx [Mass/Vol]3.9 mg/dL2.6-6.0[facility] SystemLaboratory - Hematology and Cell countsOrdered By: Ameena Vera on 84-70-3533NMB (Bld) [Velocity]31 mm/hHigh<=30 [facility] SystemHbA1c HPLC (Bld) [Mass fraction]Ordered By: Ameena Vera on 82-56-3297OsF7u (Bld) [Mass fraction]6.5 %[facility] Healthcare SystemGlomerular filtration rate (GFR) estimation in non- AmericanOrdered By: Kasi Bennett on 32-36-8757GPS/1.73 sq M.predicted among non-blacks MDRD (S/P/Bld) [Vol rate/Area]mL/min/{1.73_m2}>=60 mL/min/1.73m 2 [facility] SystemLaboratory - Chemistry and Chemistry - challengeOrdered By: Kasi Bennett on 01-69-2969Rwscuqo [Mass/Vol]2.9 g/dLLow 3.4-5.0[facility] SystemCalcium [Mass/Vol]8.7 mg/dL8.7-10.3 [facility] SystemChloride [Moles/Vol]106 mmol/D20-169OvbhxbuhuAcmc Healthcare SystemCO2 [Moles/Vol]27.8 mmol/L21.0-32.0[facility] SystemCreatinine [Mass/Vol]0.87 mg/dL0.55-1.02[facility] SystemGFR/1.73 sq M.predicted MDRD (S/P/Bld) [Vol rate/Area]mL/min/{1.73_m2} >=60 mL/min/1.73m 2FWayne HealthCare Main CampusGlucose [Mass/Vol]103 mg/dL 74-106[facility] SystemMagnesium [Mass/Vol]1.4 mg/dLLow1.8-2.4 [facility] SystemPotassium [Moles/Vol]4.4 mmol/L3.5-5.1FFostoria City Hospitalodium [Moles/Vol]142 mmol/K720-970KjmquljjeAcmc Healthcare SystemUrea nitrogen [Mass/Vol]22.0 mg/dLHigh7.0-18.0[facility] SystemUrea nitrogen/Creatinine [Mass ratio]25.3 mg/mgAcmc Healthcare SystemNo Panel InformationOrdered By: Kasi Bennett on - Hydroxy Vitamin D Total80.4 ng/mLAcmc Healthcare SystemComment on above:<20 ng/mL Vit D acwijbulv15-<30 ng/mL Vit D ddcptzxluyyx80-215 ng/mL Vit D sufficient>100 ng/mL Potential ToxicityMiscellaneous Test CommentComment. [facility] Healthcare SystemComment on above:Interpretation Intact PTH Calcium (pg/mL) (mg/dL)Normal 15 - 65 8.6 - 10.2Primary Hyperparathyroidism >65 >10.2Secondary Hyperparathyroidism >65 <10.2Non-Parathyroid Hypercalcemia <65 & gt;10.2Hypoparathyroidism <15 < 8.6Non-Parathyroid Hypocalcemia 15 - 65 < 8.6Performed at:[facility] [id number] Director: Berto Gay PhD, Phone: [phone] Hormone (Intact)30 pg/tJ25-30ExdcurfdaAcmc Healthcare SystemPhosphorus Level3.4 mg/dL2.6-4.7 [facility] Campuserum or plasma anion gap determinationOrdered By: Kasi Bennett on 70-66-8936Rrrbf gap [Moles/Vol]12.6 mmol/LFWayne HealthCare Main CampusHbA1c (Bld) [Mass fraction]on 11-35-9881Kqmyyeeobrrlwa and review of laboratory resultsAbnormalNOSainte Genevieve County Memorial HospitalNONC HealthcareLaboratory - Hematology and Cell countson 75-84-7217EgZ8v (Bld) [Mass fraction]6.4 %[facility] HealthcareALL BASIC METABOLIC PANELon 12-90-4274Jojuc gap [Moles/Vol]11.6 mmol/L [facility] HealthcareCalcium [Mass/Vol]9.3 mg/dL8.5 - 10.1 mg/dLNOSainte Genevieve County Memorial Hospital Chloride [Moles/Vol]103 mmol/L98 - 107 mmol/LNOMS HealthcareCO2 [Moles/Vol]33 mmol/LHigh21.0 - 32.0 mmol/LNOMS HealthcareCreatinine [Mass/Vol]0.86 mg/dL0.55 - 1.02 mg/dLNOMS HealthcareGFR/1.73 sq M.predicted CKD-EPI (S/P/Bld) [Vol rate/Area]>60>=60 mL/min/1.73m 2NOMS HealthcareGlucose [Mass/Vol]107 mg/tJQapd47 - 106 mg/dLNOMS HealthcareInterpretation and review of laboratory results AbnormalNOMS HealthcarePotassium [Moles/Vol]4.6 mmol/L3.5 - 5.1 mmol/LNOMS HealthcareSodium [Moles/Vol]143 mmol/L136 - 145 mmol/LNOMS HealthcareTBH EGFR- NON AF HONDURAN>60>=60 mL/min/1.73m 2NOMS HealthcareUrea nitrogen [Mass/Vol]20 mg/dLHigh7.0 - 18.0 mg/dLNOMS HealthcareUrea nitrogen/Creatinine [Mass ratio] 23.3 mg/mgNOMS HealthcareCLINISYNCNOMS HealthcareX-ray reportOrdered By: Moustapha Penny on 53-09-6669Euuiz reportOHIOHEALTH MARION GENER[facility] [address] [place] [address] XRay Report Signed Patient: Karina De Oliveira MR#: [id number] : 1965 Acct:[id number] Age/Sex: 58 / F ADM Date: 5 Loc: [facility] Room: Type: [facility] Attending Dr: Lui Banks II, MD Copies to: Lui Banks MD~ Ordering Provider: Lui Banks MD Date of Service: 05/28/24 XR/XR knee RT 4V*: M25.561 - Pain in right knee ([id number]) XR/XR pelvis 1-2V: M25.561 - Pain in [...] Penny Jr., D.O.05/28/2024 3:24 PM Dictation Location: RADIO-PC-22 Transcribed By: LILLY 05/28/24 1524 Dictated By: Moustapha Penny Jr, DO 05/28/24 1523 Signed By: 05/28/24 1524 [facility] Healthcare SystemXR knee RT 4V*on 59-74-9100BM knee RT 4V* [facility] [address] [place] [address] XRay Report Signed Patient: Karina De Oliveira MR#: [id number] : 1965 Acct:[id number] Age/Sex: 58 / F ADM Date: 05/28/24 Loc: [facility] Room: Type: [facility] Attending Dr: Lui Banks II, MD Copies to: Lui Banks MD Ordering Provider: Lui Banks MD Date of Service: 05/28/24 XR/XR knee RT 4V*: M25.561 - Pain in right knee ([id number]) XR/XR pelvis 1-2V: M25.561 - Pain in [...] Penny Jr., D.O.05/28/2024 3:24 PM Dictation Location: RADIO-PC-22 Transcribed By: LILLY 05/28/24 1524 Dictated By: Moustapha Penny Jr, DO 05/28/24 1523 Signed By: 05/28/[address] [place] [address] Physician GroupALL CBC WITH AUTO DIFFon 18-90-8911RRWYZGLXN ABSOLUTE AUTO0.1NOMS HealthcareBasophils/100 WBC (Bld)0.5 % 0.2 - 2.0 %NOMS [facility] HospitalEosinophils/100 WBC (Bld)4 %0.9 - 7.0 %[facility] Erythrocyte distribution width (RBC) [Ratio]14.6 %11.0 - 15.0 %NOMSainte Genevieve County Memorial Hospital Hematocrit (Bld) [Volume fraction]41.6 %36.0 - 48.0 %NOMSainte Genevieve County Memorial HospitalHemoglobin (Bld) [Mass/Vol]14.1 g/dL12.0 - 16.0 g/dLNOSainte Genevieve County Memorial HospitalIMMATURE GRANULOCYTES ABS AUTO0.07HighNONC HealthcareImmature granulocytes/100 WBC (Bld)0.6 %High0.0 - 0.5 %[facility] HospitalInterpretation and review of laboratory resultsAbnormalNONC HealthcareLYMPHOCYTES ABSOLUTE AUTO3.6NOMS HealthcareLymphocytes/100 WBC (Bld) 32.6 %20.5 - 60.0 %[facility] HospitalMCH (RBC) [Entitic mass]32.3 pg26.7 - 34.0 pg [facility] HospitalMCHC (RBC) [Mass/Vol]33.9 g/dL29.9 - 35.2 g/dLNOSainte Genevieve County Memorial HospitalMCV (RBC) [Entitic vol]95.2 fL81.0 - 99.0 fLNOSainte Genevieve County Memorial HospitalMONOCYTES ABSOLUTE AUTO 0.8NOMS HealthcareMonocytes/100 WBC (Bld)6.9 %1.7 - 12.0 %[facility] NEUTROPHILS ABSOLUTE AUTO6.2NOMS HealthcareNeutrophils/100 WBC (Bld)55.4 %43.0 - 75.0 %[facility] HospitalPlatelet mean volume (Bld) [Entitic vol]10.7 fL9.5 - 13.5 fLNOSainte Genevieve County Memorial HospitalTBH EO #0.4NOMS HealthcareTB WFV781DURO [facility] HospitalTB RBC4.37 NOMSainte Genevieve County Memorial HospitalTB WBC11.1HighNOSainte Genevieve County Memorial HospitalCLINISYNCNOMS HealthcareXR Knee - right 3 Viewson 65-21-7157[place] [address] XRay Report Signed Patient: KARINA DE OLIVEIRA MR#: [id number] : 1965 Acct:[id number] Age/Sex: 58 / F ADM Date: 05/21/24 Loc: LAB Attending Dr: Ameena Vera [employer] Ordering Physician: Ameena Vera NP Date of Service: 05/21/24 Procedure(s): XR knee RT 3V Accession Number(s): [id number] cc: Ameena Vera NP [facility] [place] [address] Patient Name: KARINA DE OLIVEIRA MRN: [id number] date: 1965 Sex: F Assigned Patient Location: LAB Current Patient Location: LAB Accession/Order Number: [id number] Exam Date: 05/21/2024 13:21 Report Date: 05/21/2024 [...] Penny Jr., D.O.05/21/2024 1:21 PM Dictation Location: [place] [address] Electronically authenticated by: [id number] Y Date: 05/21/2024 13:21 Dictated By: Moustapha Penny M.D. Signed By: 05/21/24 1324 DD/ 1321 TD/TT: Dental Equipment Technician:MCKAYLAHRadiology, Radiologist, - 05/21/2024 [place] [address] XRay Report Signed Patient: KARINA DE OLIVEIRA MR#: [id number] : 1965 Acct:[id number] Age/Sex: 58 / F ADM Date: 05/21/24 Loc: LAB Attending Dr: Ameena Vera NP Ordering Physician: Ameena Vera NP Date of Service: 05/21/24 Procedure(s): XR knee RT 3V Accession Number(s): [id number] cc: Ameena Vera NP [place] [id number] Patient Name: KARINA DE OLIVEIRA MRN: [facility]:[id number] date: 1965 Sex: F Assigned Patient Location: LAB Current Patient Location: LAB Accession/Order Number: [id number] Exam Date: 05/21/2024 13:21 Report Date: 05/21/2024 [...] Penny Jr., D.O.05/21/2024 1:21 PM Dictation Location: [place] [address] Electronically authenticated by: [id number] Y Date: 05/21/2024 13:21 Dictated By: Moustapha Penny M.D. Signed By: 05/21/24 1324 DD/ 1321 TD/TT: Dental Equipment Technician: CRIS HealthcareRadiology Study observation (narrative)[facility] HospitalXR Knee - right 3 ViewsOrdered By: Radiologist Radiology on 48-85-0907RMQKChildren's Mercy Hospital Work Phone: HbA1c (Bld) [Mass fraction]on 63-43-4571Enxhyyudqqcdcm and review of laboratory resultsAbnormalFormerly McDowell HospitalLaboratory - Hematology and Cell countson 38-59-4822MiH3u (Bld) [Mass fraction]6.70 %[facility] HospitalHbA1c (Bld) [Mass fraction]on 39-94-6092Weoasaikhxfqzt and review of laboratory resultsAbnormalSt. Louis Children's Hospital HealthcareLaboratory - Hematology and Cell countson 72-86-1822OeC8i (Bld) [Mass fraction]6.9 %[facility] TOMOSYNTHESIS SCREENING BIon 88-19-6497[address] [address] Mammography Report Signed Patient: KARINA DE OLIVEIRA MR#: [id number] : 1965 Acct:[id number] Age/Sex: 58 / F ADM Date: 03/18/24 Loc: MAMMO Attending Dr: RADHA BARCLAY Ordering Physician: RADHA BARCLAY Results: Date of Service: 03/18/24 Follow Up: Procedure(s): MM tomosynthesis screening BI Accession Number(s): [id number] cc: SONAM DRAKE; RADHA BARCLAY Patient Name: KARINA DE OLIVEIRA MR#: [id number] : 1965 Exam Date: 03/18/2024 Ordering Doctor: DR RADHA BARCLAY [facility] RADIOLOGY REPORT PROCEDURE: MM [...] skin cancer at age 69. LOCATION: [facility] BREAST COMPOSITION: There are scattered areas [...] Salter M.D. Signed By: 03/18/24 1454 DD/ TD/TT: Dental Equipment Technician:TBHRadiology, Radiologist, - 03/18/2024 [place] [address] Mammography Report Signed Patient: KARINA DE OLIVEIRA MR#: [id number] : 1965 Acct:[id number] Age/Sex: 58 / F ADM Date: 03/18/24 Loc: MAMMO Attending Dr: RADHA BARCLAY Ordering Physician: RADHA BARCLAY Results: Date of Service: 03/18/24 Follow Up: Procedure(s): MM tomosynthesis screening BI Accession Number(s): [id number] cc: LOCO DRAKE SUSAN Patient Name: KARINA DE OLIVEIRA MR#: [id number] : 1965 Exam Date: 03/18/2024 Ordering Doctor: DR RADHA BARCLAY [facility] RADIOLOGY REPORT PROCEDURE: MM [...] skin cancer at age 69. LOCATION: [facility] BREAST COMPOSITION: There are scattered areas [...] Dictated By: Pattie Salter M.D. Signed By: 03/18/241453 DD/ 53 TD/TT: Dental Equipment Technician: [facility] HospitalRadiology Study observation (narrative)[facility] TOMOSYNTHESIS SCREENING BIOrdered By: Radiologist Radiology on 71-02-8992ELOR [employer] Work Phone: XR FOOT LT MIN 3Von [phone] [address] XRay Report Signed Patient: KARINA DE OLIVEIRA MR#: [id number] : 1965 Acct:[id number] Age/Sex: 58 / F ADM Date: 01/29/24 Loc: RAD Attending Dr: Sussy Jones D.P.M. Ordering Physician: Sussy Jones D.P.M. Date of Service: 01/29/24 Procedure(s): XR foot LT min 3V Accession Number(s): [id number] cc: LOCO DRAKE Peter D.P.M. [place] [id number] Patient Name: KARINA DE OLIVEIRA MRN: [id number] date: 1965 Sex: F Assigned Patient Location: RAD Current Patient Location: Accession/Order Number: [id number] Exam Date: 01/29/2024 09:28 Report Date: 01/30/2024 05:38 At the request of: SUSSY JONES Procedure: XR foot LT min 3V PROCEDURE: [...] of second metatarsal fracture. Electronically authenticated by: PATTIE SALTER Date: 01/30/2024 05:38 Dictated By: Pattie Salter M.D. Signed By: 01/30/2441 DD/ TD/TT: Dental Equipment Technician:TBHRadiology, Radiologist, MD - 01/30/2024 [place] [address] XRay Report Signed Patient: KARINA DE OLIVEIRA MR#: [id number] : 1965 Acct:[id number] Age/Sex: 58 / F ADM Date: 01/29/24 Loc: RAD Attending Dr: Sussy Jones D.P.M. Ordering Physician: Sussy Jones D.P.M. Date of Service: 01/29/24 Procedure(s): XR foot LT min 3V Accession Number(s): [id number] cc: LOCO DRAKE Peter D.P.M. [facility] [place] [id number] Patient Name: KARINA DE OLIVEIRA MRN: [id number] date: 1965 Sex: F Assigned Patient Location: [facility] Current Patient Location: Accession/Order Number: [id number] Exam Date: 01/29/2024 09:28 Report Date: 01/30/2024 05:38 At the request of: SUSSY JONES Procedure: XR foot LT min 3V PROCEDURE: [...] of second metatarsal fracture. Electronically authenticated by: PATTIE SALTER Date: 01/30/2024 05:38 Dictated By: Pattie Salter M.D. Signed By: 01/30/2441 DD/ 7 TD/TT: Dental Equipment Technician: [facility] HospitalRadiology Study observation (narrative)[facility] HealthcareXR FOOT LT MIN 3VOrdered By: Radiologist Radiology on 46-73-2454NZYQChildren's Mercy Hospital Work Phone: all CBC WITH AUTO DIFFon [id number] ABSOLUTE AUTO0.1NOMS HealthcareBasophils/100 WBC (Bld)0.4 %0.2 - 2.0 %[facility] Healthcare Eosinophils/100 WBC (Bld)3.2 %0.9 - 7.0 %[facility] HospitalErythrocyte distribution width (RBC) [Ratio]15.6 %High11.0 - 15.0 %[facility] HealthcareHematocrit (Bld) [Volume fraction]42.4 %36.0 - 48.0 %[facility] HospitalHemoglobin (Bld) [Mass/Vol] 13.9 g/dL12.0 - 16.0 g/dLChildren's Mercy HospitalIMMATURE GRANULOCYTES ABS AUTO0.09High [facility] HospitalImmature granulocytes/100 WBC (Bld)0.7 %High0.0 - 0.5 %[facility] HealthcareInterpretation and review of laboratory resultsAbnormalChildren's Mercy Hospital LYMPHOCYTES ABSOLUTE AUTO3.5NOSainte Genevieve County Memorial HospitalLymphocytes/100 WBC (Bld)27.7 %20.5 - 60.0 %[facility] HospitalH (RBC) [Entitic mass]31.4 pg26.7 - 34.0 pgNOMadison Medical CenterHC (RBC) [Mass/Vol]32.8 g/dL29.9 - 35.2 g/dLHawthorn Children's Psychiatric HospitalV (RBC) [Entitic vol]95.7 fL81.0 - 99.0 fLNOMS HealthcareMONOCYTES ABSOLUTE AUTO0.9High NOMS HealthcareMonocytes/100 WBC (Bld)7.4 %1.7 - 12.0 %[facility] NEUTROPHILS ABSOLUTE AUTO7.7HighNOMS HealthcareNeutrophils/100 WBC (Bld)60.6 % 43.0 - 75.0 %NOMS HealthcarePlatelet mean volume (Bld) [Entitic vol]10.9 fL9.5 - 13.5 fLNOMS HealthcareTBH EO #0.4NOMS HealthcareTBH DEN175VPGZ HealthcareTBH RBC 4.43NOMS HealthcareTBH WBC12.8HighNOMS HealthcareCLINISYNCNOMS HealthcareXR FOOT LT MIN 3Von 04-77-6067RhlPort [place] [address] XRay Report Signed Patient: KARINA DE OLIVEIRA MR#: [id number] : 1965 Acct:[id number] Age/Sex: 58 / F ADM Date: 12/18/23 Loc: RAD Attending Dr: Sussy Jones D.P.M. Ordering Physician: Sussy Jones D.P.M. Date of Service: 12/18/23 Procedure(s): XR foot LT min 3V Accession Number(s): [id number] cc: Shaikh Erica Connelly; Sussy Jones D.P.M. The [place] [address] Patient Name: KARINA DE OLIVEIRA MRN: [id number] date: 1965 Sex: F Assigned Patient Location: [facility] Current Patient Location: PT Accession/Order Number: [id number] Exam Date: 12/18/2023 10:58 Report Date: 12/23/2023 07:39 At the request of: SUSSY JONES Procedure: XR foot LT min 3V PROCEDURE: [...] second metatarsal fracture Electronically authenticated by: RYAN WANG Date: 12/23/2023 07:39 Dictated By: Ryan Wang M.D. Signed By: 12/23/23 0741 DD/ 0739 TD/TT: Dental Equipment Technician:TBHRadiology, Radiologist, - 12/23/2023 [place] [address] XRay Report Signed Patient: KARINA DE OLIVEIRA MR#: [id number] : 1965 Acct:[id number] Age/Sex: 58 / F ADM Date: 12/18/23 Loc: RAD Attending Dr: Sussy Jones D.P.M. Ordering Physician: Sussy Jones D.P.M. Date of Service: 12/18/23 Procedure(s): XR foot LT min 3V Accession Number(s): [id number] cc: Shaikh Erica Conenlly; Sussy Jones D.P.M. The [place] [id number] Patient Name: KARINA DE OLIVEIRA MRN: [id number] date: 1965 Sex: F Assigned Patient Location: [facility] Current Patient Location: PT Accession/Order Number: [id number] Exam Date: 12/18/2023 10:58 Report Date: 12/23/2023 07:39 At the request of: SUSSY JONES Procedure: XR foot LT min 3V PROCEDURE: [...] second metatarsal fracture Electronically authenticated by: RYAN WANG Date: 12/23/2023 07:39 Dictated By: Ryan Wang M.D. Signed By: 12/23/2341 DD/ TD/TT: Dental Equipment Technician: [facility] HealthcareRadiology Study observation (narrative)[facility] HealthcareXR FOOT LT MIN 3VOrdered By: Radiologist Radiology on 26-02-7175NIDO Healthcare Work Phone: XR FOOT LT MIN 3Von 93-61-3885[place]wp[place] [address] XRay Report Signed Patient: KARINA DE OLIVEIRA MR#: [id number] : 1965 Acct:[id number] Age/Sex: 57 / F ADM Date: 10/16/23 Loc: EC Attending Dr: Sussy Jones D.P.M. Ordering Physician: Sussy Jones D.P.M. Date of Service: 10/16/23 Procedure(s): XR foot LT min 3V Accession Number(s): [id number] cc: Shaikh Erica Connelly; Sussy Jones D.P.M. [place] [address] Patient Name: KARINA DE OLIVEIRA MRN: [id number] date: 1965 Sex: F Assigned Patient Location: Current Patient Location: Accession/Order Number: [id number] Exam Date: 10/16/2023 11:20 Report Date: 10/17/2023 06:58 At the request of: SUSSY JONES Procedure: XR foot LT min 3V PROCEDURE: [...] evidence of hardware failure. Electronically authenticated by: PATTIE SALTER Date: 10/17/2023 06:58 Dictated By: Pattie Salter M.D. Signed By: 10/17/23 0701 DD/ 0658 TD/TT: Dental Equipment Technician:TBHRadiology, Radiologist, - 10/17/2023 [place] [address] XRay Report Signed Patient: KARINA DE OLIVEIRA MR#: [id number] : 1965 Acct:[id number] Age/Sex: 57 / F ADM Date: 10/16/23 Loc: EC Attending Dr: Sussy Jones D.P.M. Ordering Physician: Sussy Jones D.P.M. Date of Service: 10/16/23 Procedure(s): XR foot LT min 3V Accession Number(s): [id number] cc: Shaikh Erica Connelly; Sussy Jones D.P.M. [facility] [place] [address] Patient Name: KARINA DE OLIVEIRA MRN: [id number] date: 1965 Sex: F Assigned Patient Location: Current Patient Location: Accession/Order Number: [id number] Exam Date: 10/16/2023 11:20 Report Date: 10/17/2023 06:58 At the request of: SUSSY JONES Procedure: XR foot LT min 3V PROCEDURE: [...] evidence of hardware failure. Electronically authenticated by: PATTIE SALTER Date: 10/17/2023 06:58 Dictated By: Pattie Salter M.D. Signed By: 10/17/23 07 DD/ TD/TT: Dental Equipment Technician: [facility] HealthcareRadiology Study observation (narrative)[facility] HealthcareXR FOOT LT MIN 3VOrdered By: Radiologist Radiology on 20-90-0343SCXZ Healthcare Work Phone: ct FOOT LT WO CONon 76-11-2157DoiPort [place] [address] CT Scan Report Signed Patient: KARINA DE OLIVEIRA MR#: [id number] : 1965 Acct:[id number] Age/Sex: 57 / F ADM Date: 09/12/23 Loc: CT Attending Dr: Sussy Jones D.P.M. Ordering Physician: Sussy Jones D.P.M. Date of Service: 09/12/23 Procedure(s): CT foot LT wo con Accession Number(s): [id number] cc: Shaikh Erica Connelly [place] [phone] Patient Name: KARINA DE OLIVEIRA MRN: [id number] date: 1965 Sex: F Assigned Patient Location: CT Current Patient Location: Accession/Order Number: [id number] Exam Date: 09/12/2023 12:57 Report Date: 09/13/2023 05:02 At the request of: SUSSY JONES Procedure: CT foot LT wo con EXAMINATION: [...] metatarsal mid diaphyseal fracture. Electronically authenticated by: PATTIE SALTER Date: 09/13/2023 05:02 Dictated By: Pattie Salter M.D. Signed By: 09/13/23 0505 DD/ 0502 TD/TT: Dental Equipment Technician:TBHRadiology, Radiologist, - 09/13/2023 [place] [address] CT Scan Report Signed Patient: KARINA DE OLIVEIRA MR#: [id number] : 1965 Acct:[id number] Age/Sex: 57 / F ADM Date: 09/12/23 Loc: CT Attending Dr: Sussy Jones D.P.M. Ordering Physician: Sussy Jones D.P.M. Date of Service: 09/12/23 Procedure(s): CT foot LT wo con Accession Number(s): [id number] cc: Shaikh Erica Connelly [facility] [place] [phone] Patient Name: KARINA DE OLIVEIRA MRN: [id number] date: 1965 Sex: F Assigned Patient Location: CT Current Patient Location: Accession/Order Number: [id number] Exam Date: 09/12/2023 12:57 Report Date: 09/13/2023 05:02 At the request of: SUSSY JONES Procedure: CT foot LT wo con EXAMINATION: [...] metatarsal mid diaphyseal fracture. Electronically authenticated by: PATTIE SALTER Date: 09/13/2023 05:02 Dictated By: Pattie Salter M.D. Signed By: 09/13/23 050 DD/ 050 TD/TT: Dental Equipment Technician: [facility] HealthcareRadiology Study observation (narrative)[facility] HealthcareCT FOOT LT WO CONOrdered By: Radiologist Radiology on 21-13-4939GZIO Healthcare Work Phone: XR FOOT LT MIN 3Von 36-02-8649HilPort [place] [address] XRay Report Signed Patient: KARINA DE OLIVEIRA MR#: [id number] : 1965 Acct:[id number] Age/Sex: 57 / F ADM Date: 09/03/23 Loc: EC Attending Dr: Sussy Jones D.P.M. Ordering Physician: Sussy Jones D.P.M. Date of Service: 09/03/23 Procedure(s): XR foot LT min 3V Accession Number(s): [id number] cc: Shaikh Erica Connelly; Sussy Jones D.P.M. [facility] [place] [phone] Patient Name: KARINA DE OLIVEIRA MRN: [id number] date: 1965 Sex: F Assigned Patient Location: EC Current Patient Location: Accession/Order Number: [id number] Exam Date: 09/03/2023 15:15 Report Date: 09/04/2023 07:49 At the request of: SUSSY JONES Procedure: XR foot LT min 3V PROCEDURE: [...] and fifth metatarsals Electronically authenticated by: RYAN WANG Date: 09/04/2023 07:49 Dictated By: Ryan Wang M.D. Signed By: 09/04/23 0752 DD/ 0749 TD/TT: Dental Equipment Technician:TBHRadiology, Radiologist, MD - 09/04/2023 [place] [address] XRay Report Signed Patient: KARINA DE OLIVEIRA MR#: [id number] : 1965 Acct:[id number] Age/Sex: 57 / F ADM Date: 09/03/23 Loc: EC Attending Dr: Sussy Jones D.P.M. Ordering Physician: Sussy Jones D.P.M. Date of Service: 09/03/23 Procedure(s): XR foot LT min 3V Accession Number(s): [id number] cc: Shaikh Erica Connelly; Sussy Jones D.P.M. [facility] [place] [address] Patient Name: KARINA DE OLIVEIRA MRN: [id number] date: 1965 Sex: F Assigned Patient Location: Current Patient Location: Accession/Order Number: [id number] Exam Date: 09/03/2023 15:15 Report Date: 09/04/2023 07:49 At the request of: SUSSY JONES Procedure: XR foot LT min 3V PROCEDURE: [...] and fifth metatarsals Electronically authenticated by: RYAN WANG Date: 09/04/2023 07:49 Dictated By: Ryan Wang M.D. Signed By: 09/04/23 0752 DD/ 0749 TD/TT: Dental Equipment Technician: [facility] HealthcareRadiology Study observation (narrative)[facility] HealthcareXR FOOT LT MIN 3VOrdered By: Radiologist Radiology on 92-21-5133CXPE [facility] Work Phone: XR FOOT LT MIN 3Von 28-15-6503JkuPort [place] [address] XRay Report Signed Patient: KARINA DE OLIVEIRA MR#: [id number] : 1965 Acct:[id number] Age/Sex: 57 / F ADM Date: 08/13/23 Loc: EC Attending Dr: Sussy Jones D.P.M. Ordering Physician: Sussy Jones D.P.M. Date of Service: 08/13/23 Procedure(s): XR foot LT min 3V Accession Number(s): [id number] cc: Shaikh Erica Connelly; Sussy Jones D.P.M. [facility] [place] [address] Patient Name: KARINA DE OLIVEIRA MRN: [facility]:[id number] date: 1965 Sex: F Assigned Patient Location: Current Patient Location: Accession/Order Number: [id number] Exam Date: 08/13/2023 14:05 Report Date: 08/14/2023 15:30 At the request of: SUSSY JONES Procedure: XR foot LT min 3V PROCEDURE: [...] of early bone healing. Electronically authenticated by: PATTIE SALTER Date: 08/14/2023 15:30 Dictated By: Pattie Salter M.D. Signed By: 08/14/23 1532 DD/ 153 TD/TT: Dental Equipment Technician:TBHRadiology, Radiologist, MD - 08/14/2023 [place] [address] XRay Report Signed Patient: KARINA DE OLIVEIRA MR#: [id number] : 1965 Acct:[id number] Age/Sex: 57 / F ADM Date: 08/13/23 Loc: EC Attending Dr: Sussy Jones D.P.M. Ordering Physician: Sussy Jones D.P.M. Date of Service: 08/13/23 Procedure(s): XR foot LT min 3V Accession Number(s): [id number] cc: Shaikh Erica Connelly; Sussy Jones D.P.M. [place] [address] Patient Name: KARINA DE OLIVEIRA MRN: [id number] date: 1965 Sex: F Assigned Patient Location: Current Patient Location: Accession/Order Number: [id number] Exam Date: 08/13/2023 14:05 Report Date: 08/14/2023 15:30 At the request of: SUSSY JONES Procedure: XR foot LT min 3V PROCEDURE: [...] of early bone healing. Electronically authenticated by: PATTIE SALTER Date: 08/14/2023 15:30 Dictated By: Pattie Salter M.D. Signed By: 08/14/23 1532 DD/ 153 TD/TT: Dental Equipment Technician: [facility] HealthcareRadiology Study observation (narrative)[facility] HealthcareXR FOOT LT MIN 3VOrdered By: Radiologist Radiology on 84-20-6014LQTQ Healthcare Work Phone: XR TIBIA FIBULA LT 2Von 23-32-0330Yxg [place] [address] XRay Report Signed Patient: KARINA DE OLIVEIRA MR#: [id number] : 1965 Acct:[id number] Age/Sex: 57 / F ADM Date: 08/13/23 Loc: EC Attending Dr: Sussy Jones D.P.M. Ordering Physician: Sussy Jones D.P.M. Date of Service: 08/13/23 Procedure(s): XR tibia fibula LT 2V Accession Number(s): [id number] cc: Shaikh Erica Connelly; Sussy Jones D.P.M. [facility] [place] [phone] Patient Name: KARINA DE OLIVEIRA MRN: [id number] date: 1965 Sex: F Assigned Patient Location: Current Patient Location: Accession/Order Number: [id number] Exam Date: 08/13/2023 14:05 Report Date: 08/14/2023 15:27 At the request of: SUSSY JONES Procedure: XR tibia fibula LT 2V PROCEDURE: [...] of early bone healing. Electronically authenticated by: PATTIE SALTER Date: 08/14/2023 15:27 Dictated By: Pattie Salter M.D. Signed By: 08/14/23 1529 DD/ 1527 TD/TT: Dental Equipment Technician:TBHRadiology, Radiologist, - 08/14/2023 [facility] [place] [id number] XRay Report Signed Patient: KARINA DE OLIVEIRA MR#: [id number] : 1965 Acct:[id number] Age/Sex: 57 / F ADM Date: 08/13/23 Loc: EC Attending Dr: Sussy Jones D.P.M. Ordering Physician: Sussy Jones D.P.M. Date of Service: 08/13/23 Procedure(s): XR tibia fibula LT 2V Accession Number(s): [id number] cc: Shaikh Erica Connelly; Sussy Jones D.P.M. [place] [address] Patient Name: KARINA DE OLIVEIRA MRN: [id number] date: 1965 Sex: F Assigned Patient Location: Current Patient Location: Accession/Order Number: [id number] Exam Date: 08/13/2023 14:05 Report Date: 08/14/2023 15:27 At the request of: SUSSY JONES Procedure: XR tibia fibula LT 2V PROCEDURE: [...] of early bone healing. Electronically authenticated by: PATTIE SALTER Date: 08/14/2023 15:27 Dictated By: Pattie Salter M.D. Signed By: 08/14/23 1529 DD/ 1527 TD/TT: Dental Equipment Technician: [facility] HealthcareRadiology Study observation (narrative)[facility] HealthcareXR TIBIA FIBULA LT 2VOrdered By: Radiologist Radiology on 59-51-1787YQGB [facility] Work Phone: XR FOOT LT MIN 3Von 94-08-2590OucPort [place] [address] XRay Report Signed Patient: KARINA DE OLIVEIRA MR#: [id number] : 1965 Acct:[id number] Age/Sex: 57 / F ADM Date: 07/24/23 Loc: EC Attending Dr: Sussy Jones D.P.M. Ordering Physician: Sussy Jones D.P.M. Date of Service: 07/24/23 Procedure(s): XR foot LT min 3V Accession Number(s): [id number] cc: Shaikh Erica Connelly; Sussy Jones D.P.M. [facility] [place] [address] Patient Name: KARINA DE OLIVEIRA MRN: [id number] date: 1965 Sex: F Assigned Patient Location: Current Patient Location: Accession/Order Number: [id number] Exam Date: 07/24/2023 13:37 Report Date: 07/24/2023 15:51 At the request of: SUSSY JONES Procedure: XR foot LT min 3V PROCEDURE: [...] significant bony bridging Electronically authenticated by: RYAN WANG Date: 07/24/2023 15:51 Dictated By: Ryan Wang M.D. Signed By: 07/24/23 1553 DD/ 1551 TD/TT: Dental Equipment Technician:ALEXadiology, Radiologist, - 07/24/2023 [place] [address] XRay Report Signed Patient: KARINA DE OLIVEIRA MR#: [id number] : 1965 Acct:[id number] Age/Sex: 57 / F ADM Date: 07/24/23 Loc: EC Attending Dr: Sussy Jones D.P.M. Ordering Physician: Sussy Jones D.P.M. Date of Service: 07/24/23 Procedure(s): XR foot LT min 3V Accession Number(s): [id number] cc: Shaikh Erica Connelly; Sussy Jones D.P.M. [place] [address] Patient Name: KARINA DE OLIVEIRA MRN: [id number] date: 1965 Sex: F Assigned Patient Location: Current Patient Location: Accession/Order Number: [id number] Exam Date: 07/24/2023 13:37 Report Date: 07/24/2023 15:51 At the request of: SUSSY JONES Procedure: XR foot LT min 3V PROCEDURE: [...] significant bony bridging Electronically authenticated by: RYAN WANG Date: 07/24/2023 15:51 Dictated By: Ryan Wang M.D. Signed By: 07/24/23 1553 DD/ 155 TD/TT: Dental Equipment Technician: [facility] HealthcareRadiology Study observation (narrative)[facility] HealthcareXR FOOT LT MIN 3VOrdered By: Radiologist Radiology on 89-72-1392RTXT [facility] Work Phone: XR FOOT LT MIN 3Von 39-83-6685[address] [address] XRay Report Signed Patient: KARINA DE OLIVEIRA MR#: [id number] : 1965 Acct:[id number] Age/Sex: 57 / F ADM Date: 07/03/23 Loc: EC Attending Dr: Sussy Jones D.P.M. Ordering Physician: Sussy Jones D.P.M. Date of Service: 07/03/23 Procedure(s): XR foot LT min 3V Accession Number(s): [id number] cc: Shaikh Erica Connelly; Sussy Jones D.P.M. The [address] [address] Patient Name: KARINA DE OLIVEIRA MRN: [id number] date: 1965 Sex: F Assigned Patient Location: Current Patient Location: Accession/Order Number: [id number] Exam Date: 07/03/2023 10:54 Report Date: 07/03/2023 14:04 At the request of: SUSSY JONES Procedure: XR foot LT min 3V PROCEDURE: [...] Lisfranc fracture dislocation Electronically authenticated by: RYAN WANG Date: 07/03/2023 14:04 Dictated By: Ryan Wang M.D. Signed By: 07/03/23 1407 DD/ 03 TD/TT: Dental Equipment Technician:TBHRadiology, Radiologist, - 07/03/2023 [place] [address] XRay Report Signed Patient: KARINA DE OLIVEIRA MR#: [id number] : 1965 Acct:[id number] Age/Sex: 57 / F ADM Date: 07/03/23 Loc: EC Attending Dr: Sussy Jones D.P.M. Ordering Physician: Sussy Jones D.P.M. Date of Service: 07/03/23 Procedure(s): XR foot LT min 3V Accession Number(s): [id number] cc: Shaikh Erica Connelly; Sussy Jones D.P.M. [place] [address] Patient Name: KARINA DE OLIVEIRA MRN: [id number] date: 1965 Sex: F Assigned Patient Location: Current Patient Location: Accession/Order Number: [id number] Exam Date: 07/03/2023 10:54 Report Date: 07/03/2023 14:04 At the request of: SUSSY JONES Procedure: XR foot LT min 3V PROCEDURE: [...] Lisfranc fracture dislocation Electronically authenticated by: RYAN WANG Date: 07/03/2023 14:04 Dictated By: Ryan Wang M.D. Signed By: 07/03/23 1407 DD/ 03 TD/TT: Dental Equipment Technician: [facility] HealthcareRadiology Study observation (narrative)[facility] HealthcareXR FOOT LT MIN 3VOrdered By: Radiologist Radiology on 83-36-3385JHPQ [facility] Work Phone: ecG 12-LEADon 14-46-6872[place]ig[place] [address] Electrocardiograph Report Signed Patient: KARINA DE OLIVEIRA MR#: [id number] : 1965 Acct:[id number] Age/Sex: 57 / F ADM Date: 06/08/23 Loc: MS 231-[address]: Rivas Pacheco M.D. 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 Signed By: 06/09/23 0712 DD/ 1537 TD/TT: Dental Equipment Technician:TBHRadiology, Radiologist, MD - 06/09/2023 [facility] [place] [address] Electrocardiograph Report Signed Patient: KARINA DE OLIVEIRA MR#: [id number] : 1965 Acct:[id number] Age/Sex: 57 / F ADM Date: 06/08/23 Loc: MS 231-[address]: Rivas Pacheco M.D. 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 Signed By: 06/09/23 0712 DD/ 1537 TD/TT: Dental Equipment Technician: CRIS [place] 12-LEADOrdered By: Radiologist Radiology on 20-58-5856TVRO [employer] Work Phone: ct FOOT LT WO CONon 66-71-3693[address] [address] [address] Scan Report Signed Patient: KARINA DE OLIVEIRA MR#: [id number] : 1965 Acct:[id number] Age/Sex: 57 / F ADM Date: 06/08/23 Loc: MS 231-[address]: Rivas Pacheco M.D. Ordering Physician: Anahi Soriano Date of Service: 06/08/23 Procedure(s): CT foot LT wo con Accession Number(s): [id number] cc: Shaikh Erica Connelly [address] [address] Patient Name: KARINA DE OLIVEIRA MRN: [id number] date: 1965 Sex: F Assigned Patient Location: ER Current Patient Location: MS Accession/Order Number: [id number] Exam Date: 06/08/2023 17:15 Report Date: 06/08/2023 18:29 At the request of: ANAHI SORIANO Procedure: CT foot LT wo con IMAGES [...] Nilo Muñoz M.D. Signed By: 06/08/231831 DD/ TD/TT: Dental Equipment Technician:TBHRadiology, Radiologist, MD - 06/08/2023 [place] [address] CT Scan Report Signed Patient: KARINA DE OLIVEIRA MR#: [id number] : 1965 Acct:[id number] Age/Sex: 57 / F ADM Date: 06/08/23 Loc: MS 231-[address]: Rivas Pacheco M.D. Ordering Physician: Anahi Soriano Date of Service: 06/08/23 Procedure(s): CT foot LT wo con Accession Number(s): [id number] cc: Shaikh Erica Connelly [address] [address] Patient Name: KARINA DE OLIVEIRA MRN: [id number] date: 1965 Sex: F Assigned Patient Location: ER Current Patient Location: MS Accession/Order Number: [id number] Exam Date: 06/08/2023 17:15 Report Date: 06/08/2023 18:29 At the request of: ANAHI SORIANO Procedure: CT foot LT wo con IMAGES [...] M.D. Signed By: 06/08/231831 DD/ 28 TD/TT: Dental Equipment Technician: CR[facility] HealthcareRadiology Study observation (narrative)[facility] HealthcareCT FOOT LT WO CONOrdered By: Radiologist Radiology on 91-64-2297SGZV [facility] Work Phone: ECG 12-LEADon 65-15-1165Rduwnnjaf Study observation (narrative)[facility] LUMBAR SPINE WO CONon 31-99-7728LyzPort [place] [address] Magnetic Resonance Report Signed Patient: KARINA DE OLIVEIRA MR#: [id number] : 1965 Acct:[id number] Age/Sex: 57 / F ADM Date: 06/06/23 Loc: MRI Attending Dr: James Tijerina NP Ordering Physician: James Tijerina NP Date of Service: 06/06/23 Procedure(s): MR lumbar spine wo con Accession Number(s): [id number] cc: Shaikh Erica Connelly; James Tijerina NP [place] [address] Patient Name: KARINA DE OLIVEIRA MRN: [id number] date: 1965 Sex: F Assigned Patient Location: MRI Current Patient Location: MRI Accession/Order Number: [id number] Exam Date: 06/06/2023 12:30 Report Date: 06/06/2023 [...] Ruperto Fritz M.D. Signed By: 06/06/231650 DD/ TD/TT: Dental Equipment Technician:TBHRadiology, Radiologist, - 06/06/2023 [place] [address] Magnetic Resonance Report Signed Patient: KARINA DE OLIVEIRA MR#: [id number] : 1965 Acct:[id number] Age/Sex: 57 / F ADM Date: 06/06/23 Loc: MRI Attending Dr: James Tijerina NP Ordering Physician: James Tijerina NP Date of Service: 06/06/23 Procedure(s): MR lumbar spine wo con Accession Number(s): [id number] cc: Shaikh Erica Connelly; James Tijerina NP [address] [address] Patient Name: KARINA DE OLIVEIRA MRN: [id number] date: 1965 Sex: F Assigned Patient Location: MRI Current Patient Location: MRI Accession/Order Number: [id number] Exam Date: 06/06/2023 12:30 Report Date: 06/06/2023 [...] RUPERTO FRITZ Date: 06/06/2023 16:49 Dictated By: Rueprto Fritz M.D. Signed By: 06/06/231650 DD/ 48 TD/TT: Dental Equipment Technician: [facility]Rad[facility] observation (narrative)[facility] LUMBAR SPINE WO CONOrdered By: Radiologist Radiology on [id number] [employer] Work Phone: XR LUMBAR SPINE 6V W BENDINGon [phone] [address] XRay Report Signed Patient: KARINA DE OLIVEIRA MR#: [id number] : 1965 Acct:[id number] Age/Sex: 57 / F ADM Date: 05/22/23 Loc: RAD Attending Dr: James Tijerina [employer] Ordering Physician: James Tijerina NP Date of Service: 05/22/23 Procedure(s): XR lumbar spine 6V w bending Accession Number(s): [id number] cc: Shaikh Erica Connelly; James Tijerina NP [place] [id number] Patient Name: KARINA DE OLIVEIRA MRN: [id number] date: 1965 Sex: F Assigned Patient Location: [facility] Current Patient Location: RAD Accession/Order Number: [id number] Exam Date: 05/22/2023 12:18 Report Date: 05/22/2023 [...] diffuse degenerative changes Electronically authenticated by: RYAN WANG Date: 05/22/2023 15:48 Dictated By: Ryan Wang M.D. Signed By: 05/22/23 1551 DD/ 1548 TD/TT: Dental Equipment Technician:TBHRadiology, Radiologist, MD - 05/22/2023 [place] [address] XRay Report Signed Patient: KARINA DE OLIVEIRA MR#: [id number] : 1965 Acct:[id number] Age/Sex: 57 / F ADM Date: 05/22/23 Loc: [place] Attending Dr: James Tijerina NP Ordering Physician: James Tijerina NP Date of Service: 05/22/23 Procedure(s): XR lumbar spine 6V w bending Accession Number(s): [id number] cc: Shaikh Erica Connelly; James Tijerina NP [address] [place] [address] Patient Name: KARINA DE OLIVEIRA MRN: [id number] date: 1965 Sex: F Assigned Patient Location: [facility] Current Patient Location: [facility] Accession/Order Number: [id number] Exam Date: 05/22/2023 12:18 Report Date: 05/22/2023 [...] diffuse degenerative changes Electronically authenticated by: RYAN WANG Date: 05/22/2023 15:48 Dictated By: Ryan Wang M.D. Signed By: 05/22/23 155 DD/ 47 TD/TT: Dental Equipment Technician: [facility] HealthcareRadiology Study observation (narrative)[facility]'s Mercy HospitalXR LUMBAR SPINE 6V W BENDINGOrdered By: Radiologist Radiology on 21-85-4974AJYF Healthcare Work Phone: aLL LIPID PROFILE (FASTING)on 94-26-2355SHML HDL RATIO 2.3NONC HealthcareComment on above:3.3 - 4.4 LOW RISK 4.4 - 7.1 AVERAGE RISK 7.1 - 11.0 MODERATE RISK >11.0 HIGH RISK Cholesterol [Mass/Vol]110 mg/dLNINF - 200 mg/dLChildren's Mercy HospitalCholesterol in HDL [Mass/Vol]47 mg/dL40 - 60 mg/dLNONC HealthcareComment on above:> or =60 mg/dl - LOW CARDIOVASCULAR RISK <40 mg/dl - HIGH CARDIOVASCULAR RISK Magnesium [Mass/Vol]42.4 mg/dLNONC HealthcareComment on above:<100 mg/dl OPTIMAL 100-129 mg/dl NEAR OR ABOVE OPTIMAL 130-159 mg/dl BORDERLINE HIGH 160-189 mg/dl HIGH >190 mg/dl VERY HIGH Magnesium [Mass/Vol]20.6 mg/dLChildren's Mercy HospitalTriglyceride [Mass/Vol]103 mg/dL NINF - 150 mg/dLNOSaint John's Breech Regional Medical CenterHP LIVER PANELon 99-97-9678Iknrxpz [Mass/Vol] 3.3 g/dLLow3.4 - 5.0 g/dLChildren's Mercy HospitalALBUMIN GLOBULIN RATIO0.8NOSainte Genevieve [facility] ALP [Catalytic activity/Vol]66 U/L46 - 116 U/LNOMS HealthcareALT [Catalytic activity/Vol]26 U/L14 - 59 U/LNOMS HealthcareAST [Catalytic activity/Vol]15 U/L 15 - 37 U/LNOMS HealthcareBilirubin [Mass/Vol]0.3 mg/dL0.2 - 1.0 mg/dLNOMS HealthcareBilirubin.indirect [Mass/Vol]0.1 mg/dL0.0 - 0.2 mg/dLNOMS Healthcare Globulin (S) [Mass/Vol]4.2 g/dLNOMS HealthcareInterpretation and review of laboratory resultsAbnormalNOMS HealthcareProtein [Mass/Vol]7.5 g/dL6.4 - 8.2 g/dLNOMS HealthcareMM TOMOSYNTHESIS SCREENING BIon 84-24-0928[place] [address] Mammography Report Signed Patient: KARINA DE OLIVEIRA MR#: [id number] : 1965 Acct:[id number] Age/Sex: 57 / F ADM Date: 03/20/23 Loc: MAMMO Attending Dr: RADHA BARCLAY Ordering Physician: RADHA BARCLAY Results: Date of Service: 03/20/23 Follow Up: Procedure(s): MM tomosynthesis screening BI Accession Number(s): [id number] cc: Shaikh Erica Connelly; RADHA BARCLAY Patient Name: KARINA DE OLIVEIRA MR#: [id number] : 1965 Exam Date: 03/20/2023 Ordering Doctor: DR RADHA BARCLAY [facility] RADIOLOGY REPORT PROCEDURE: MM [...] skin cancer at age 69. LOCATION: [facility] BREAST COMPOSITION: Scattered areas fibroglandular density. [...] PALPABLE LUMP SHOULD BE BIOPSIED. Dictated by: Ryan Wang MD on 03/20/2023 at 12:56 Approved by: Ryan Wang MD on 03/20/2023 at 12:57 Dictated By: Ryan Wang M.D. Signed By: 03/20/23 1259 DD/ 1257 TD/TT: Dental Equipment Technician:ALEXadiologaislinn, MD Radha - 03/20/2023 [place] [address] Mammography Report Signed Patient: KARINA DE OLIVEIRA MR#: [id number] : 1965 Acct:[id number] Age/Sex: 57 / F ADM Date: 03/20/23 Loc: MAMMO Attending Dr: RADHA BARCLAY Ordering Physician: RADHA BARCLAY Results: Date of Service: 03/20/23 Follow Up: Procedure(s): MM tomosynthesis screening BI Accession Number(s): [id number] cc: Shaikh Erica Connelly; RADHA BARCLAY Patient Name: KARINA DE OLIVEIRA MR#: [id number] : 1965 Exam Date: 03/20/2023 Ordering Doctor: DR RADHA BARCLAY [facility] RADIOLOGY REPORT PROCEDURE: MM [...] skin cancer at age 69. LOCATION: [facility] BREAST COMPOSITION: Scattered areas fibroglandular density. [...] PALPABLE LUMP SHOULD BE BIOPSIED. Dictated by: Ryan Wang MD on 03/20/2023 at 12:56 Approved by: Ryan Wang MD on 03/20/2023 at 12:57 Dictated By: Ryan Wang M.D. Signed By: 03/20/23 1259 DD/ 1257 TD/TT: Dental Equipment Technician: CRIS [facility] HospitalRadiology Study observation (narrative)[facility] TOMOSYNTHESIS SCREENING BIOrdered By: Radiologist Radiology on 91-12-3135KYNJ [employer] Work Phone: No Panel Informationon 23-14-7285DQCOORTXEEVRU HealthcareXR DEXA AXIAL SKELETONon 64-01-5923Jgm[place] [address] XRay Report Signed Patient: KARINA DE OLIVEIRA MR#: [id number] : 1965 Acct:[id number] Age/Sex: 57 / F ADM Date: 03/20/23 Loc: MAMMO Attending Dr: RADHA BARCLAY Ordering Physician: RADHA BARCLAY Date of Service: 03/20/23 Procedure(s): XR DEXA axial skeleton Accession Number(s): [id number] cc: Shaikh Erica Connelly; RADHA BARCLAY [place] [address] Patient Name: KARINA DE OLIVEIRA MRN: [id number] date: 1965 Sex: F Assigned Patient Location: [facility] Current Patient Location: LAB Accession/Order Number: [id number] Exam Date: 03/20/2023 09:28 Report Date: 03/20/2023 09:48 At the request of: RADHA BARCLAY Procedure: XR DEXA axial skeleton EXAMINATION: XR [...] Low fracture risk Electronically authenticated by: RYAN WANG Date: 03/20/2023 09:48 Dictated By: Ryan Wang M.D. Signed By: 03/20/23949 DD/ 7 TD/TT: Dental Equipment Technician:TBHRadiology, Radiologist, - 03/20/2023 [place] [address] XRay Report Signed Patient: KARINA DE OLIVEIRA MR#: [id number] : 1965 Acct:[id number] Age/Sex: 57 / F ADM Date: 03/20/23 Loc: MAMMO Attending Dr: RADHA BARCLAY Ordering Physician: RADHA BARCLAY Date of Service: 03/20/23 Procedure(s): XR DEXA axial skeleton Accession Number(s): [id number] cc: Shaikh Erica Connelly; RADHA BARCLAY [place] [address] Patient Name: KARINA DE OLIVEIRA MRN: [id number] date: 1965 Sex: F Assigned Patient Location: [facility] Current Patient Location: LAB Accession/Order Number: [id number] Exam Date: 03/20/2023 09:28 Report Date: 03/20/2023 09:48 At the request of: RADHA BARCLAY Procedure: XR DEXA axial skeleton EXAMINATION: XR [...] Low fracture risk Electronically authenticated by: RYAN WANG Date: 03/20/2023 09:48 Dictated By: Ryan Wang M.D. Signed By: 03/20/23949 DD/ 7 TD/TT: Dental Equipment Technician: CRIS HealthcareRadiology Study observation (narrative)[facility] HealthcareXR DEXA AXIAL SKELETONOrdered By: Radiologist Radiology on 36-26-5344LLMX [employer] Work Phone: XR LSPINE 2_3 VIEWSon 90-85-1208YF LSPINE 2_3 VIEWS EXAMINATION: XR LSPINE 2_3 [...] Electronically authenticated by: PATTIE SALTER Date: 2022-06-07 11:15NormalThe [facility] AUTO DIFFon 88-86-9227DPEX #0.1 103/ulNormal0.0-0.1The Medina HospitalComment on above:Performed By: #### CBC ####[facility] [address] [place], [place] [address]Sy.Yilan ChangBasophils/100 WBC (Bld)0.5 %Normal0.2-2.0The Medina HospitalComment on above:Performed By: #### CBC ####[facility] [address] [place], [place] [address]Rz.Yilan ChangEO #0.3 103/ulNormal0.0-0.7The Medina HospitalComment on above:Performed By: #### CBC ####[facility] [address] [place] [address]Dr.Ricky ChangEosinophils/100 WBC (Bld)3.0 %Normal 0.9-7.0The Medina HospitalComment on above:Performed By: #### CBC ####[facility] [address] [place], [place] [address]Dr.Ricky Valenzuela Erythrocyte distribution width (RBC) [Ratio]14.8 %Wxwodn00.0-15.0The [facility]ina HospitalComment on above:Performed By: #### CBC ####[facility] [address] [place], [place] [address]Dr.Ricky ChangHematocrit (Bld) [Volume fraction]40.6 %Kfqnjg44.0-48.0The Medina HospitalComment on above:Performed By: #### CBC ####[facility] [address]ks[address] [place], [place] [address]Dr.Ricky ChangHemoglobin (Bld) [Mass/Vol]13.5 g/dL Kbwogl84.0-16.0The [facility]ina HospitalComment on above:Performed By: #### CBC ####[facility] Myky[address]ucraf[address] [place], [place] [address]Dr. Ricky ChangIG #0.16 10e3/ulCritically high0.00-0.03The Medina HospitalComment on above:Performed By: #### CBC ####[facility] Abs[address] [place], [place] [address]Dr.Ricky ChangIG %1.4 %Critically high0.0-0.5The Medina HospitalComment on above:Performed By: #### CBC ####[facility] Oed[address] [place], [place] [address]Dr.Ricky ChangLYMPH #3.4 103/ulNormal1.2-3.8The Medina HospitalComment on above:Performed By: #### CBC ####[facility] Xctib[address] [place], [place] [address]Dr. Ricky ChangLymphocytes/100 WBC (Bld)30.4 %Ewttrh06.5-60.0[facility] Comment on above:Performed By: #### CBC ####[facility] [address] [place] [address]Dr.Ricky ValenzuelaMANUAL DIFF REQNONormalThe Medina HospitalComment on above:Performed By: #### CBC ####[facility] [address] [place], [place] [address]Dr.Lesleysharron ValenzuelaH (RBC) [Entitic mass]31.8 fbAkyxxf88.7-34.0The Toney HospitalComment on above: Performed By: #### CBC ####[facility] Bujccl[address] [place], [place] [address]Dr.Lesleysharron ValenzuelaHC (RBC) [Mass/Vol]33.3 g/dLNormal 29.9-35.2The [facility] HospitalComment on above:Performed By: #### CBC ####[facility] [address] [place], [place] [address]Dr. Ricky ValenzuelaV (RBC) [Entitic vol]95.5 fZMficxt37.0-99.0[facility] Comment on above:Performed By: #### CBC ####[facility] Gvhsoacpri[address] [place], [place] [address]DrDenise ValenzuelaMONO #0.9 103/ulCritically high0.3-0.8The [facility] HospitalComment on above:Performed By: #### CBC ####[facility] [address] [place], [place] [address]Dr. Ricky ValenzuelaMonocytes/100 WBC (Bld)7.7 %Normal1.7-12.0[facility] Comment on above:Performed By: #### CBC ####[facility] [address] [place], [place] [address]DrDenise ValenzuelaNEUT #6.3 103/ulNormal1.4-6.5 The [facility]ina HospitalComment on above:Performed By: #### CBC ####[facility] [address] [place], [place] [address]DrDenise Valenzuela Neutrophils/100 WBC (Bld)57.0 %Dpxcmc68.0-75.0The [facility] HospitalComment on above:Performed By: #### CBC ####[facility] [address] [place] [address]Dr.Ricky ValenzuelaPlatelet mean volume (Bld) [Entitic vol] 9.8 fLNormal9.5-13.5The [facility] HospitalComment on above:Performed By: #### CBC ####[facility] Wwinlebp[address] [place], [place] [address]Dr. Ricky SvtbfECC052 103/cmArjyuf184-576Euz [facility] HospitalComment on above: Performed By: #### CBC ####[facility] Rdackngyvn[address] [place], [place] [address]Dr.Ricky ChangRBC4.25 106/ulNormal4.20-5.40The [facility] HospitalComment on above:Performed By: #### CBC ####[facility] [address]te[address] [place], [place] [address]Dr.Ricky ValenzuelaWBC11.1 103/ul Critically high4.0-11.0The [facility] HospitalComment on above:Performed By: #### CBC ####[facility] Xi[address] [place], [place] [address]Dr. Ricky ValenzuelaGLYCOHEMOGLOBIN A1Con 02-15-7116NOQ RECOMMENDATIONSEE BELOWSumma HealthComment on above:Result Comment: ADA RECOMMENDED LIMIT 4.0 - 6.0 ADA THERAPEUTIC TARGET < 7.0 ACTION SUGGESTED > 7.0Performed By: #### A1C ####[facility] [address] [place], [place] [address]Dr. Ricky ValenzuelaGlucose [Mass/Vol]160 mg/dLSumma HealthComment on above:Performed By: #### A1C ####[facility] [address] [place], [place] [address]Dr.Ricky ValenzuelaHbA1c (Bld) [Mass fraction]7.2 % Critically high4.5-6.2The [facility] HospitalComment on above:Performed By: #### A1C ####[facility] [address] [place] [address]Dr. Ricky ValenzuelaMICROALBUMIN, RAND URon 00-36-7775kQXZ<1.3Normal<=30.0The [facility] HospitalComment on above:Performed By: #### MALBR #### [facility] [address] [place] [address] Dr. Ricky ValenzuelaPROF 14(COMP METB)on 33-09-0877Qbyrlce [Mass/Vol]3.3 g/dL Critically low3.4-5.0The [facility] HospitalComment on above:Performed By: #### CMP #### [facility] [address] [place] [address] Dr. Ricky ValenzuelaAlbumin/Globulin [Mass ratio]0.9 {ratio}NormalThe [facility]ina HospitalComment on above:Performed By: #### CMP #### [facility] [address] [place] [address] Dr. Ricky RodriguesP [Catalytic activity/Vol]90 U/XTdilna64-643Tlc [facility] HospitalComment on above:Performed By: #### CMP #### [facility] [address] [place] [address] Dr. Ricky Ambriz [Catalytic activity/Vol]42 U/MMvbaot74-76Rqx [facility] HospitalComment on above:Performed By: #### CMP #### [facility] [address] [place] [address] Dr. Ricky Campbell gap [Moles/Vol]10.1 mmol/LNormalThe [facility] Comment on above:Performed By: #### CMP #### [facility] [address] [place] [address] Dr. Ricky Wells [Catalytic activity/Vol]21 U/EAmmnmh02-85Xht [facility] HospitalComment on above:Performed By: #### CMP #### [facility] [address] [place] [address] Dr. Ricky ValenzuelaBilirubin [Mass/Vol]0.3 mg/dLNormal0.2-1.0The [facility] Comment on above:Performed By: #### CMP #### [facility] [address] [place] [address] [address] Ricky ValenzuelaCalcium [Mass/Vol]9.8 mg/dLNormal8.5-10.1The [facility] Comment on above:Performed By: #### CMP #### [facility] [address] [place] [address] [address] Ricky ValenzuelaChloride [Moles/Vol]99 mmol/TLawclg41-542Ubd [facility] Comment on above:Performed By: #### CMP #### [facility] [address] [place] [address] [address] Ricky ValenzuelaCO2 [Moles/Vol]33.7 mmol/LCritically high21.0-32.0The [facility] HospitalComment on above:Performed By: #### CMP #### [facility] [address] [place] [address] [address] Ricky ValenzuelaCreatinine [Mass/Vol]0.94 mg/dLNormal0.55-1.02The [facility] HospitalComment on above:Performed By: #### CMP #### [facility] [address] [place] [address] [address] Ricky ReynosoGFR-AF HONDURAN>60Normal>=60The [facility] HospitalComment on above:Performed By: #### CMP #### [facility] [address] [place] [address] [address] Ricky ReynosoGFR-NON AF HONDURAN>60Normal>=60The [facility] HospitalComment on above:Performed By: #### CMP #### [facility] [address] [place] [address] [address] Ricky ValenzuelaGlobulin (S) [Mass/Vol]3.8 g/dLNormalThe [facility] HospitalComment on above:Performed By: #### CMP #### [facility] [address] [place] [address] [address] Ricky ValenzuelaGlucose [Mass/Vol]168 mg/dLCritically nxcs04-571Mpp [facility] HospitalComment on above:Performed By: #### CMP #### [facility] [address] [place], [place] [address] Dr. Ricky ValenzuelaPotassium [Moles/Vol]4.8 mmol/LNormal3.5-5.1The [facility] Comment on above:Performed By: #### CMP #### [facility] [address] [place], [place] [address] Dr. Ricky ValenzuelaProtein [Mass/Vol]7.1 g/dLNormal6.4-8.2The [facility] Comment on above:Performed By: #### CMP #### [facility] [address] [place], [place] [address] Dr. Ricky ValenzuelaSodium [Moles/Vol]138 mmol/ASvndkg176-958Vqz [facility] Comment on above:Performed By: #### CMP #### [facility] [address] [place] [address] Ricky ValenzuelaUrea nitrogen [Mass/Vol]22.0 mg/dLCritically high7.0-18.0[facility] Health MiamisburgComment on above:Performed By: #### CMP #### [facility] [address] [place], [place] [address] Dr. Ricky Alcala nitrogen/Creatinine [Mass ratio]23.4 mg/mgNormalThe [facility] HospitalComment on above:Performed By: #### CMP #### [facility] [address] [place] [address] Ricky Caicedoologyon 53-07-4447Bypwrnxw(NOTE) INTERPRETATION Vaginal material, (ThinPrep vial, Imaging-assisted review): Specimen Adequacy: Satisfactory for evaluation. Descriptive Diagnosis: Negative for intraepithelial lesion or malignancy. Yarding Supervisor: CLARK Delacruz(ASCP) Electronically Signed Out zackary/09/07/2021 Source: A: Vaginal material, (ThinPrep vial, Imaging-assisted review) Clinical History Hysterectomy Surgery: Salpingostomy; Ovary removal Z12.4 Encounter for screening for malignant neoplasm of cervix GYNECOLOGIC CYTOLOGY REPORT Patient Name: KARINA DE OLIVEIRA [facility] Rec: [id number] Path Number: [id number] [facility] ANATOMIC PATHOLOGY [address] [place] [id number] NoKettering Health Greene MemorialComment on above:Performed By: #### PPPVP #### [facility] Coupz [facility] [place] [id number] [place] Aide: Luca Cummins [facility] AUTO DIFFon 79-91-0402IYSG #0.1 103/ulNormal 0.0-0.1The [facility] HospitalComment on above:Performed By: #### CBC #### [facility] [address] [place] [address] [address] Ricky ValenzuelaBasophils/100 WBC (Bld)0.8 %Normal0.2-2.0The [facility] Comment on above:Performed By: #### CBC #### [facility] [address] [place] [address] Dr. Ricky Anderson #0.2 103/ulNormal0.0-0.7The [facility] HospitalComment on above: Performed By: #### CBC #### [facility] [address] [place] [address] [address] Ricky Reynosoosinophils/100 WBC (Bld)2.1 %Normal0.9-7.0[facility] Comment on above:Performed By: #### CBC #### [facility] [address] [place] [address] Dr. Ricky Reynosorythrocyte distribution width (RBC) [Ratio]15.2 %Critically high 11.0-15.0The [facility] HospitalComment on above:Performed By: #### CBC #### [facility] [address] [place] [address] Dr. Ricky ValenzuelaHematocrit (Bld) [Volume fraction]41.5 %Cvmdaa32.0-48.0The [facility] HospitalComment on above:Performed By: #### CBC #### [facility] [address] [place] [address] Dr. Ricky ValenzuelaHemoglobin (Bld) [Mass/Vol]13.5 g/zGJqlmdf98.0-16.0The [facility] HospitalComment on above:Performed By: #### CBC #### [facility] [address] [place] [address] [address] Ricky Adler #0.42 10e3/ulCritically high0.00-0.03The [facility] Comment on above:Performed By: #### CBC #### [facility] [address] [place] [address] [address] Ricky Adler %3.8 %Critically high0.0-0.5The Toney HospitalComment on above:Performed By: #### CBC #### [facility] [address] [place] [address] Dr. Ricky Rausch #3.3 103/ulNormal1.2-3.8The [facility] HospitalComment on above:Performed By: #### CBC #### [facility] [address] [place] [address] Dr. Ricky Saenzhocytes/100 WBC (Bld)29.1 %Uwnago67.5-60.0The [facility] HospitalComment on above:Performed By: #### CBC #### [facility] [address] [place] [address] [address] Ricky PachecoCLEVELAND [facility] DIFF REQNONormalThe [facility] HospitalComment on above: Performed By: #### CBC #### [facility] [address] [place] [address] [address] Ricky Archer (RBC) [Entitic mass]32.4 ydZfcfmf29.7-34.0The [facility] HospitalComment on above:Performed By: #### CBC #### [facility] [address] [place] [address] Dr. Ricky Archer (RBC) [Mass/Vol]32.5 g/qOXrinsi57.9-35.2The [facility] HospitalComment on above:Performed By: #### CBC #### [facility] [address] [place] [address] Dr. Ricky Archer (RBC) [Entitic vol]99.5 fLCritically high81.0-99.0The [facility] HospitalComment on above:Performed By: #### CBC #### [facility] [address] [place] [address] Dr. Ricky Burnham #0.8 103/ulNormal0.3-0.8The [facility] HospitalComment on above:Performed By: #### CBC #### [facility] [address] [place] [address] Dr. Ricky Kiddocytes/100 WBC (Bld)7.5 %Normal1.7-12.0[facility] Comment on above:Performed By: #### CBC #### [facility] [address] [place] [address] Dr. Ricky Sahu #6.3 103/ulNormal1.4-6.5The [facility] HospitalComment on above:Performed By: #### CBC #### [facility] [address] [place] [address] Dr. Ricky Gonzalezutrophils/100 WBC (Bld)56.7 %Pjiyng96.0-75.0The [facility] HospitalComment on above:Performed By: #### CBC #### [facility] [address] [place] [address] Dr. Ricky Golden mean volume (Bld) [Entitic vol]9.8 fLNormal9.5-13.5The [facility] HospitalComment on above:Performed By: #### CBC #### [facility] [address] [place] [address] Dr. Ricky ValenzuelaPLT265 103/qxZtptdp823-988Ril [facility] HospitalComment on above: Performed By: #### CBC #### [facility] [address] [place] [address] Dr. Ricky ValenzuelaRBC4.17 106/ulCritically low4.20-5.40The [facility] HospitalComment on above:Performed By: #### CBC #### [facility] [address] [place] [address] Dr. Ricky ValenzuelaWBC11.2 103/ulCritically high4.0-11.0The Qasmi HospitalComment on above:Performed By: #### CBC #### [facility] [address] [place] [address] [address] Ricky ValenzuelaGLYCOHEMOGLOBIN A1Con 41-98-4075IZQ RECOMMENDATIONSEE BELOWKettering Health HamiltonCombronson south haven hospital on above:Result Comment: ADA RECOMMENDED LIMIT 4.0 - 6.0 ADA THERAPEUTIC TARGET < 7.0 ACTION SUGGESTED > 7.0Performed By: #### A1C ####[facility] [address] [place] [address]Dr. Ricky ValenzuelaGlucose [Mass/Vol]183 mg/dLSumma HealthCombronson south haven hospital on above:Performed By: #### A1C ####[facility] [address] [place] [address]Dr.Yilan ValenzuelaHbA1c (Bld) [Mass fraction]8.0 % Critically high4.5-6.2The [facility] on above:Performed By: #### A1C ####[facility] [address] [place] [address]Dr. Ricky ValenzuelaLIPID PROFILEon 32-37-6481PXSY-HDL RATIO NORMSEE BELOWSumma HealthCombronson south haven hospital on above:Result Comment: 3.3 - 4.4 LOW RISK 4.4 - 7.1 AVERAGE RISK 7.1 - 11.0 MODERATE RISK >11.0 HIGH RISKPerformed By: #### CMP, LIPID #### [facility] [address] [place] [address] [address] iRcky Garayesterol [Mass/Vol]239 mg/dLCritically high<=200[facility] on above:Performed By: #### CMP, LIPID #### [facility] [address] [place] [address] [address] Ricky Garayesterol in HDL [Mass/Vol]36 mg/dLCritically xbx83-42Gga [facility] on above:Performed By: #### CMP, LIPID #### [facility] [address] [place] [address] [address] Ricky Garayesterol in LDL [Mass/Vol]164.2 mg/dLSumma HealthComment on above:Performed By: #### CMP, LIPID #### [facility] [address] [place] [address] [address] Ricky ValenzuelaCholesterol.total/Cholesterol in HDL [Mass ratio]6.6 {ratio} NormalThe [facility] HospitalCombronson south haven hospital on above:Performed By: #### CMP, LIPID #### [facility] [address] [place] [address] [address] Ricky Mahoney NORMAL> or = 60 mg/dl - LOW CARDIOVASCULAR RISK <40 mg/dl - HIGH CARDIOVASCULAR RISKNoProMedica Toledo HospitalComment on above:Performed By: #### CMP, LIPID #### [facility] [address] [place] [address] [address] Ricky Boudreaux CALC NORMALSEE BELOWSumma HealthComment on above:Result Comment: <100 mg/dl OPTIMAL 100 - 129 mg/dl NEAR OR ABOVE OPTIMAL 130 - 159 mg/dl BORDERLINE HIGH 160 - 189 mg/dl HIGH >190 mg/dl VERY HIGH Performed By: #### CMP, LIPID #### [facility] [address] [place] [address] [address] Ricky ValenzuelaTriglyceride [Mass/Vol]194 mg/dLCritically high<=150The [facility] HospitalCombronson south haven hospital on above:Performed By: #### CMP, LIPID #### [facility] [address] [place] [address] [address] Ricky ValenzuelaVLDL CALC38.8 mg/dLNoProMedica Toledo HospitalComment on above: Performed By: #### CMP, LIPID #### [facility] [address] [place] [address] [address] Ricky ValenzuelaMICSTEPHANIEALBUMIN, RAND URon 21-87-5801nBDW50.1 mg/LNormal<=30.0The Medina HospitalComment on above:Performed By: #### MALBR ####[facility] [address] [address]Dr. Ricky ValenzuelaPROF 14(COMP METB)on 24-53-7473Iuwmyto [Mass/Vol]3.3 g/dLCritically low3.4-5.0The Medina HospitalComment on above:Performed By: #### CMP, LIPID #### [facility] [address] [place] [address] Dr. Ricky ValenzuelaAlbumin/Globulin [Mass ratio]0.8 {ratio}NormalThe Medina HospitalComment on above:Performed By: #### CMP, LIPID #### [facility] [address] [place] [address] Dr. Ricky Harris [Catalytic activity/Vol]93 U/WUpoyym98-380Mfe [facility] HospitalComment on above:Performed By: #### CMP, LIPID #### [facility] [address] [place] [address] Dr. Ricky Ambriz [Catalytic activity/Vol]37 U/TXczslp11-43Nss [facility]ina HospitalComment on above:Performed By: #### CMP, LIPID #### [facility] [address] [place] [address] Dr. Ricky Campbell gap [Moles/Vol]10.9 mmol/LNormalThe [facility] Comment on above:Performed By: #### CMP, LIPID #### [facility] [address] [place] [address] Dr. Ricky ValenzuelaAST [Catalytic activity/Vol]10 U/LCritically won74-57Lzt [facility]ina HospitalComment on above:Performed By: #### CMP, LIPID #### [facility] [address] [place] [address] Dr. Ricky ValenzuelaBilirubin [Mass/Vol]0.2 mg/dLNormal0.2-1.0[facility] Comment on above:Performed By: #### CMP, LIPID #### [facility] [address] [place] [address] Dr. Ricky ValenzuelaCalcium [Mass/Vol]9.0 mg/dLNormal8.5-10.1[facility] Comment on above:Performed By: #### CMP, LIPID #### [facility] [address] [place] [address] Dr. Ricky ValenzuelaChloride [Moles/Vol]100 mmol/KOvsksd39-297Muv [facility] Comment on above:Performed By: #### CMP, LIPID #### [facility] [address] [place] [address] Dr. Ricky ValenzuelaCO2 [Moles/Vol]32.2 mmol/LCritically high21.0-32.0The Medina HospitalComment on above:Performed By: #### CMP, LIPID #### [facility] [address] [place] [address] Dr. Ricky ValenzuelaCreatinine [Mass/Vol]0.95 mg/dLNormal0.55-1.02The Medina HospitalComment on above:Performed By: #### CMP, LIPID #### [facility] [address] [place] [address] Dr. Ricky ReynosoGFR-AF HONDURAN>60Normal>=60The Medina HospitalComment on above:Performed By: #### CMP, LIPID #### [facility] [address] [place] [address] Dr. Ricky ReynosoGFR-NON AF HONDURAN>60Normal>=60The Medina HospitalComment on above:Performed By: #### CMP, LIPID #### [facility] [address] [place] [address] Dr. Ricky ValenzuelaGlobulin (S) [Mass/Vol]4.2 g/dLNormalThe Medina HospitalComment on above:Performed By: #### CMP, LIPID #### [facility] [address] [place] [address] Dr. Ricky ValenzuelaGlucose [Mass/Vol]200 mg/dLCritically dwxj93-794Tuz [facility]ina HospitalComment on above:Performed By: #### CMP, LIPID #### [facility] [address] [place] [address] Dr. Ricky ValenzuelaPotassium [Moles/Vol]4.1 mmol/LNormal3.5-5.1The [facility] Comment on above:Performed By: #### CMP, LIPID #### [facility] [address] [place] [address] Dr. Ricky ValenzuelaProtein [Mass/Vol]7.5 g/dLNormal6.4-8.2[facility] Comment on above:Performed By: #### CMP, LIPID #### [facility] [address] [address] [address] Ricky ValenzuelaSodium [Moles/Vol]139 mmol/UNcibhw182-739Vae [facility] Comment on above:Performed By: #### CMP, LIPID #### [facility] [address] [address] [address] Ricky ValenzuelaUrea nitrogen [Mass/Vol]13.0 mg/dLNormal7.0-18.0The Medina HospitalComment on above:Performed By: #### CMP, LIPID #### [facility] [address] [place] [address] Dr. Ricky Alcala nitrogen/Creatinine [Mass ratio]13.7 mg/mgNormalThe Medina HospitalComment on above:Performed By: #### CMP, LIPID #### [facility] [address] [place] [address] Dr. Ricky ValenzuelaPOINT OF CARE GLUCOSEon 94-85-9503Fmfpxng [Mass/Vol]176 mg/dL Critically mjuj62-803Dwq Medina HospitalComment on above:Performed By: #### POCGLUC #### [facility] [address] [place] [address] Dr. Ricky Valenzuela Vital Signs Date TimeVital SignValuePerforming FjzaivvxvShbnecrv68-80-3756 12:47-0400 Diastolic blood qigemnjx34 mm[Hg]Ameena Vera [employer] INSTALLER-C Work Phone: [facility]10-29-2025 12:47-0400 Systolic blood mm[Hg]Ameena Vera [employer] INSTALLER-C Work Phone: [facility]10-13-2025 13:07-0400 Body cboxft805.94 Khanh Vera [employer] INSTALLER-C Work Phone: [facility]10-13-2025 13:07-0400 Body mass index (BMI) [Ratio]39.9 kg/m2Lisa Pohholz [employer] INSTALLER-C Work Phone: 1(302)[address]10-13-2025 13:07-0400 Body zpayvdwlsyd87.3 [degF]Ameena Aichholz [employer] INSTALLER-C Work Phone: [phone])[address] [place], [place] 457[address]10-13-2025 13:07-0400 Body .76 kgLisa Aichholz [employer] INSTALLER-C Work Phone: [phone])[address] [place], [place] 457[address]10-13-2025 13:07-0400 Diastolic blood skheaizy34 mm[Hg]Ameena Pohholz [employer] INSTALLER-C Work Phone: 1(220)[address] [place], [place] 457[address]10-13-2025 13:07-0400 Heart stud725 /minLisa Aichholz [employer] INSTALLER-C Work Phone: 1(525)[address] [place], [place] 457[address]10-13-2025 13:07-0400 Respiratory rate18 /minLisa Aichholz [employer] INSTALLER-C Work Phone: 1(668)[address] [place], [place] [address]10-13-2025 13:07-0400 SaO2% (BldA) [Mass fraction]92 %Ameena Pohholz [employer] INSTALLER-C Work Phone: 1(212)[address] [place], [place] [address]10-13-2025 13:07-0400 Systolic blood cfuthckk715 mm[Hg]Ameena Ryanholz [employer] INSTALLER-C Work Phone: 1(110)[address]09-22-2025 09:56-0400 Body jgwxtu831.4 Carol Bennett MD Work Phone: [facility] HospitalKejirsitcb11-45-5473 09:56-0400Body mass index (BMI) [Ratio]40.62 kg/y3JeojzKasi Bennett MD Work Phone: [facility] HospitalOakndlrtkw98-51-8768 09:56-0400Body ocwhfl52.35 kgKasi Bennett MD Work Phone: [facility] HospitalNpyuuqmmvb12-20-2027 09:56-0400Heart rate83 /min Kasi Bennett MD Work Phone: [facility] HospitalHbeexygczj97-09-8287 09:56-0400Respiratory rate18 /minKasi Bennett MD Work Phone: [facility] HospitalTrxutdwybr88-70-5581 09:56-7447HjK7% (BldA) [Mass fraction]95 %Kasi Bennett MD Work Phone: [facility] HospitalRitvwzcteg87-46-6066 11:44-0400Body temperature 98.1 [degF]Ameena Aichholz Work Phone: 1(082)[address]09-08-2025 11:44-0400 Body .41 kgLisa Aichholz Work Phone: 1(269)[address]09-08-2025 11:44-0400 Diastolic blood lgboahiw06 mm[Hg]Ameena Aichholz Work Phone: 1(846)[address]09-08-2025 11:44-0400 Heart rate93 /minLisa Aichholz Work Phone: 1(162)[address]09-08-2025 11:44-0400 Respiratory rate16 /minLisa Aichholz Work Phone: 1(866)[address]09-08-2025 11:44-0400 SaO2% (BldA) [Mass fraction]97 %Ameena Aichholz Work Phone: 1(064)[address]09-08-2025 11:44-0400 Systolic blood ptajqaty478 mm[Hg]Ameena Aichholz Work Phone: 1([phone]07-10-2025 11:10-0400 Diastolic blood hvcodfym34 mm[Hg]Ameena Aichholz [employer] INSTALLER Work Phone: [facility] HospitalNhiazdsuxc30-39-1126 11:10-0400Systolic blood pogdowkk53 mm[Hg]Ameena Aichholz [employer] INSTALLER Work Phone: noS[facility] HospitalDwfdvnqsej47-22-2934 10:37-0400Body mass index (BMI) [Ratio]39.74 kg/m2Ameena Vera [employer] INSTALLER Work Phone: noS[facility] HospitalHhhyzkonkg78-27-3296 10:37-0400Body temperature 98.49 [degF]Ameena Vera CAR [employer] INSTALLER Work Phone: noS[facility] HospitalFfqqlhjbti42-33-4831 10:37-0400Body bpyhqq45.98 kgAmeena Vera [employer] INSTALLER Work Phone: [facility] HospitalQmkdpbwaho90-26-9057 10:37-0400Heart pkvx302 /min Ameena Vera [employer] INSTALLER Work Phone: noS[facility] HospitalHbtxhiebnx89-31-7117 10:37-0400Respiratory rate18 /minLisa Vera [employer] INSTALLER Work Phone: [facility] HospitalBubevylvqh70-96-6331 10:37-8937IvV8% (BldA) [Mass fraction]93 %Ameena Vera [employer] INSTALLER Work Phone: XBSainte Genevieve [facility] HospitalFuzsjdltvx34-32-7953 14:08-0400Body bazuja589.2 Carol Bennett MD Work Phone: noS[facility] HospitalFipufsfbvk53-51-4386 14:08-0400Body mass index (BMI) [Ratio]39.04 kg/f2UuswmKasi Bennett MD Work Phone: noS[facility] HospitalEnvaknqjeh35-65-8592 14:08-0400Body ofynqq81.25 kgKasi Bennett MD Work Phone: ULSainte Genev[facility] HospitalPezgpmzqii01-41-8179 14:08-0400Diastolic blood iigfpflg10 mm[Hg]Kasi Bennett MD Work Phone: noS[facility] HospitalTodiedsyfh63-07-2768 14:08-0400Heart rate86 /min Kasi Bennett MD Work Phone: noS[facility] HospitalPobdkprgvs64-60-4889 14:08-0400Respiratory rate18 /minKasi Bennett MD Work Phone: [facility] HospitalIpaytugvym22-45-9923 14:08-9614FeS5% (BldA) [Mass fraction]93 %Kasi Bennett MD Work Phone: [facility] HospitalOronxaofxy44-11-1136 14:08-0400Systolic blood ycwjursn980 mm[Hg]Kasi Bennett MD Work Phone: [facility] HospitalXhytetpfsg50-09-7263 13:16-0400Body .94 cmAcmc Healthcare System04-17-2025 13:16-0400Body mass index (BMI) [Ratio]39.4 kg/b1QkjbzjjdtAcmc Healthcare System04-17-2025 13:16-0400Body vbilhk37.8 kgAcmc Healthcare System04-08-2025 11:10-0400Body height 157.5 cmLisa Chuy CAR [employer]O INSTALLER Work Phone: [facility] HospitalLbnjdvnqgz19-72-5837 11:10-0400Body mass index (BMI) [Ratio]39.03 kg/m2Lisa Pohholz [employer] INSTALLER Work Phone: [facility] HospitalHhzqvgvstc29-41-4738 11:10-0400Body temperature 98.29 [degF]Ameena Chuy [employer] INSTALLER Work Phone: [facility] HospitalOlblqadzas40-30-9802 11:10-0400Body opelsz18.8 kg Ameena Chuy [employer] INSTALLER Work Phone: [facility] HospitalYlfytqrgro16-38-2688 11:10-0400Diastolic blood lwnmyyau32 mm[Hg]Ameena Ryanholz [employer] INSTALLER Work Phone: [facility] HospitalIujkexepvh89-75-9587 11:10-0400Heart rate91 /min Ameena Pohdeidrez [employer] INSTALLER Work Phone: [facility] HospitalFejnsadxfl50-36-6628 11:10-0400Respiratory rate18 /minLisa Pohholz CAR [employer]O INSTALLER Work Phone: [facility] HospitalTmrpavtexc95-68-0367 11:10-5188QsE2% (BldA) [Mass fraction]96 %Ameena Ryanholz [employer] INSTALLER Work Phone: noS[facility] HospitalVrjtfjzoml37-05-3065 11:10-0400Systolic blood aiuqupiu833 mm[Hg]Ameena Vera [employer] INSTALLER Work Phone: NOSain[facility]ev[facility] HospitalFvagyfjcfo00-17-7192 13:08-0400Body bfadxn489.5 cmAcrescencio Wilkerson CAR [employer]O INSTALLER Work Phone: NOSain[facility]ev[facility] HospitalHinmvwartt44-08-0891 13:08-0400Body mass index (BMI) [Ratio]39.51 kg/z0DhtpaoZa Shipmanr CAR STEREO INSTALLER Work Phone: NOSain[facility]ev[facility] HospitalTunenkztaa22-82-2073 13:08-0400Body ogxpzv47.98 kgZa Shipmanr CAR STEREO INSTALLER Work Phone: noS[facility] HospitalTkpgxpjqnl66-62-5998 13:08-0400Diastolic blood uqhcgqgu25 mm[Hg]Za Wilkerson CAR [employer]O INSTALLER Work Phone: [facility] HospitalAcmwudjgtm53-23-2822 13:08-0400Heart rate96 /min Za Shipmanr [employer] INSTALLER Work Phone: noS[facility] HospitalIyqjcxojqq63-95-0222 13:08-2216EtW9% (BldA) [Mass fraction]93 %Za Shipmanr CAR [employer] INSTALLER Work Phone: noSain[facility] HospitalOmlzopnxvl29-26-9650 13:08-0400Systolic blood mhyriasy709 mm[Hg]Za Shipmanr CAR [employer] INSTALLER Work Phone: [facility] HospitalMsdpktbbtb67-45-5615 09:40-0500Body zjqcod086.5 cmSonam Drake CAR ST[employer] INSTALLER Work Phone: NOSain[facility] Genev[facility] HospitalNacjenfzjx02-13-5142 09:40-0500Body mass index (BMI) [Ratio]39.51 kg/f4Hukouqof Drake [employer] INSTALLER Work Phone: [facility] HospitalDmumngjwee93-46-0391 09:40-0500Body temperature 97.3 [degF]Sonam Drake [employer] INSTALLER Work Phone: [facility] HospitalHdeuxxfvcj93-40-6428 09:40-0500Body bxtibf23.98 kgBrittcarlene Drake [employer] INSTALLER Work Phone: [facility] HospitalXuylkgtfbn91-72-6932 09:40-0500Diastolic blood bgoyxzqv31 mm[Hg]Sonam Drake [employer] INSTALLER Work Phone: [facility] HospitalNqlaiombwd99-98-0855 09:40-0500Heart rate76 /min Sonam Drake [employer] INSTALLER Work Phone: [facility] HospitalAlwpcabygq47-18-1254 09:40-0500Respiratory rate16 /minBrittcarlene Drake CAR [employer]O INSTALLER Work Phone: [facility] HospitalGrissacruk76-50-2168 09:40-7137XcZ9% (BldA) [Mass fraction]98 %Sonam Drake [employer] INSTALLER Work Phone: [facility] HospitalWoglpjgsoh55-42-2660 09:40-0500Systolic blood bjputpcg434 mm[Hg]Sonam Drake [employer]O INSTALLER Work Phone: [facility] HospitalWmmvtmvcef56-92-9564 10:13-0500Body .5 cmKortneyany Drake CAR [employer]O INSTALLER Work Phone: [facility] HospitalFqnuuynpbz10-24-8045 10:13-0500Body mass index (BMI) [Ratio]39.51 kg/f0Hemnzrlt Drake [employer] INSTALLER Work Phone: [facility] HospitalNvoidmvxnl12-24-4823 10:13-0500Body temperature 97.2 [degF]Sonam Drake [employer] INSTALLER Work Phone: [facility] HospitalHfkcygcluu93-20-0576 10:13-0500Body pluyan24.98 kgBrittany Drake CAR [employer]O INSTALLER Work Phone: [facility] HospitalOujximtkwk13-25-3871 10:13-0500Diastolic blood cqsrluhp08 mm[Hg]Sonam Drake [employer]O INSTALLER Work Phone: [facility] HospitalEpwzxgcwct50-46-5598 10:13-0500Heart rate84 /min Sonam Drake [employer] INSTALLER Work Phone: [facility] HospitalYrwrcgcwkd87-42-5027 10:13-0500Respiratory rate16 /minBrzulema Drake CAR [employer]O INSTALLER Work Phone: [facility] HospitalNvpvipadbq75-66-5165 10:13-3385HoK6% (BldA) [Mass fraction]96 %Sonam Riverpatrick CAR [employer]O INSTALLER Work Phone: [facility] HospitalSxncloxaca72-24-9017 10:13-0500Systolic blood mm[Hg]Sonamyazmin RiverDrake CAR STEREO INSTALLER Work Phone: [address] [address]Pdnfngcjap32-23-6569 10:06-0500Body yguqfb776.5 cmNicole Solo DO Work Phone: [address] [address]Xccvptjrlk42-73-3424 10:06-0500Body mass index (BMI) [Ratio]39.14 kg/p0Wtjffi Solo DO Work Phone: [address] [address]Lqhfddnewv33-08-4226 10:06-0500Body .07 kgNicole Solo DO Work Phone: [address] [address]Cqgefzxdyz40-02-1785 10:06-0500Diastolic blood hyeyyxem22 mm[Hg]Sivan Solo DO Work Phone: [address] [address]Pxkldqatby50-19-7769 10:06-0500Heart rate95 /min Sivan Solo DO Work Phone: [address] [address]Mixrjlfyyt01-44-8888 10:06-5515OzA0% (BldA) [Mass fraction]97 %Sivan Solo DO Work Phone: [address] [address]Kwxvzmjzon25-99-8293 10:06-0500Systolic blood sawdueum861 mm[Hg]Sivan Solo DO Work Phone: [address] [address]Dulvcxwqnf94-49-6063 10:46-0500Body mass index (BMI) [Ratio]40.06 kg/z2Bksevugu Drake CAR [employer] INSTALLER Work Phone: 1(419)547-034022 Freeman StreetXuditceigl04-32-5585 10:46-0500Body thzqed69.34 kgBrzulema Drake CAR [employer]O INSTALLER Work Phone: [facility] HospitalNzfxgrqvqa88-14-1166 10:46-0500Diastolic blood btwtbmky67 mm[Hg]Sonam Drake [employer] ST[employer]O INSTALLER Work Phone: [facility] HospitalTclkneqsex02-84-4026 10:46-0500Heart rate97 /min Sonam Drake [employer] INSTALLER Work Phone: [address] [address]Pmecvgwtsx83-68-6832 10:46-0353RvI4% (BldA) [Mass fraction]98 %Sonam Drake CAR [employer]O INSTALLER Work Phone: [address] [address]Cpufcxaljm48-83-5821 10:46-0500Systolic blood wpbormxq14 mm[Hg]Sonam Drake CAR [employer]O INSTALLER Work Phone: [facility] HospitalJxnamlbjzr24-81-6035 10:07-0400Body .5 cmSonam Drake CAR ST[employer]O INSTALLER Work Phone: [facility] HospitalCajqmuvxpm63-81-3412 10:07-0400Body mass index (BMI) [Ratio]39.32 kg/m3Czpnuwop Drake CAR ST[employer]O INSTALLER Work Phone: [facility] HospitalSkqivoamaf67-78-3197 10:07-0400Body temperature 97.5 [degF]Sonam Drake [employer]O INSTALLER Work Phone: [facility] HospitalGnwgchxyvb88-23-8431 10:07-0400Body phpube47.52 kgBrzulema Drake CAR [employer] INSTALLER Work Phone: [place] [address]Skmkxgbwuh33-39-5297 10:07-0400Diastolic blood iadivhgz46 mm[Hg]Sonam Drake [employer]O INSTALLER Work Phone: [facility] HospitalGewntvyjjo20-00-3413 10:07-0400Heart zlbk929 /min Sonam Drake CAR ST[employer]O INSTALLER Work Phone: [facility] HospitalComment on above:97% K496-95-5947 10:07-0400Systolic blood gqiojxth59 mm[Hg]Sonam Riverpatrick CAR ST[employer]O INSTALLER Work Phone: NOSain[facility] HospitalSuqtsctymy52-32-2916 09:10-0500Body rsoorw022.21 cmPkelley Hendricks Other noMyRefers Other 12-08-2023 09:10-0500Body mass index (BMI) [Ratio] 42.82 kg/p4Xgpqvb Ruthie Other MiName Other 12-08-2023 09:10-0500Body pfbawgysiai38.2 [degF]Elle Ruhtie Other MiName Other 12-08-2023 09:10-0500Body huspxt712.51 kgLeeannaovidio Ruthie Other MiName Other 12-08-2023 09:10-0500Diastolic blood mm[Hg] Elle Ruthie Other MiName Other 12-08-2023 09:10-0500Respiratory rate18 /minElle Hendricks Other MiName Other 12-08-2023 09:10-4888RsC5% (BldA) [Mass fraction]97 % Elle Ruthie Other MiName Other 12-08-2023 09:10-0500Systolic blood uvednoew536 mm[Hg] Elle Hendricks Other MiName Other Encounters Encounter DateEncounter TypeCare ProviderFacilityStart: 12-09-2024 End: 50-00-7129zvuiocjtegEjvk J Aichholz [employer] INSTALLER-C Work Phone: 5(679)785-7622205-7591-[facility] OrthopedicsStart: 12-09-2024 End: 99-83-2898Niokrwf encounter procedureRobert Darren Mcgee MD-[facility] Work Phone: Start: 40-84-2482Jhg-patient / Non-visitAmeena Vera NP-C-[facility] Work Phone: Start: 11-30-2024 End: 21-84-8373igofdtosmcDezgziaAustin Crowley MDFacility:PM Qasim Start: 11-23-2024 End: 30-01-2691fwpicvtstmHmfc J Aichholz [employer] INSTALLER-C Work Phone: [facility] Work Phone: Start: 11-23-2024 End: 04-36-3528Doxkwhk encounter procedureAmeena Vera CAR ST[employer]O INSTALLER-C-[facility] Juan Carlos Work Phone: Start: 11-02-2024 End: 88-94-8001Xvplmhtutu Bennett MD Work Phone: [facility] EndocrinologyStart: 11-02-2024 End: 79-79-4284Wmgngiapolinar Bennett MD Work Phone: [facility] EndocrinologyStart: 11-02-2024 End: 95-75-3712Zfrbge outpatient visit 25 minutesKasi Bennett MD Work Phone: [facility] Jason EndocrinologyComment on above:Low serum parathyroid hormone (PTH) (Primary Dx); Hypercalcemia; Vitamin D deficiency; HypomagnesemiaStart: 11-02-2024 End: 69-41-8722efxeoofczyEKTLN F SABBAGHNot AvailableStart: 94-41-1937Wrf- patient / Non-visitKasi Bennett MD-[facility] Work Phone: Start: 10-26-2024 End: 33-57-1129folzpxblsvZuurzavAutsin Crowley MDFacility:BRIANNA Tripp Start: 10-19-2024 End: 80-47-0634dtxdypbqrfUodz J Aichholz Work Phone: [facility] Work Phone: Start: 10-19-2024 End: 07-26-7892Jhlxfym encounter procedureAmeena Vera CAR STEREO INSTALLER-C-[facility] Work Phone: Start: 10-05-2024 End: 92-92-0007PsejesFsjk Naderer MD Work Phone: noms CWM FMComment on above:Other hyperlipidemiaStart: 09-29-2024 End: 93-37-3341IdymxbDynh Aichholz CAR [employer]O INSTALLER Work Phone: [facility] CWM FMComment on above:Lumbar back painStart: 09-23-2024 End: 98-53-5889QqzkmiXzea Aichholz CAR ST[employer]O INSTALLER Work Phone: [facility] FMComment on above:Diabetic polyneuropathy associated with type 2 diabetes mellitus (HCC)Start: 08-20-2024 End: 39-26-9733WoinrvZbtv Aichholz CAR STEREO INSTALLER Work Phone: [facility] CWM FMComment on above:Bilateral lower extremity edema; Migraine with aura and without status migrainosus, not intractable ; Type 2 diabetes mellitus with diabetic microalbuminuria, without long-term current use of insulin (HCC); Osteoporosis, unspecified osteoporosis type, unspecified pathological fracture presenceStart: 08-20-2024 End: 64-92-0568Zfcign outpatient visit 25 Renate Vera CAR STEREO INSTALLER Work Phone: [facility] CWM FMComment on above:Type 2 diabetes mellitus with diabetic microalbuminuria, without long-term current use of insulin (HCC) (Primary Dx); Essential hypertension; Morbid (severe) obesity due to excess calories (E66.01); Cigarette nicotine dependence without complication; Chronic gout of multiple sites, unspecified cause; Gastroesophageal reflux disease without esophagitis; Bilateral lower extremity edemaStart: 08-05-2024 End: 45-51-6841DwrxsrYhhq Aichholz CAR STEREO INSTALLER Work Phone: [facility] CWM FMComment on above:Chronic gout of multiple sites, unspecified cause (Primary Dx)Type 2 diabetes mellitus with diabetic microalbuminuria, without long-term current use of insulin (HCC)Start: 08-02-2024 End: 18-41-1754GbjwlyXvfx Naderer MD Work Phone: [facility] CWM FMComment on above:Lumbar back painStart: 07-29-2024 End: 00-91-8313Iqnycg Akil Bennett MD Work Phone: [facility] ENDOCRINOLOGYStart: 07-29-2024 End: 29-81-1350Zqasrq Akil Bennett MD Work Phone: [facility] ENDOCRINOLOGYStart: 07-29-2024 End: 62-43-1225Bigpaq outpatient new 45 minutesKasi Bennett MD Work Phone: [facility] ENDOCRINOLOGYComment on above:Hypercalcemia (Primary Dx); Low serum parathyroid hormone (PTH); Vitamin D deficiencyStart: 07-29-2024 End: 47-26-9911hwbsqaofhuCRHPG F SABBAGHNot AvailableStart: 07-26-2024 End: 22-42-2042UejjnmFepu Aichholz CAR STEREO INSTALLER Work Phone: [facility] CWM FMComment on above:Lumbar back painStart: 07-22-2024 End: 52-82-7788YwurtaMjet Naderer MD Work Phone: [facility] CWM FMComment on above:Type 2 diabetes mellitus with diabetic microalbuminuria, without long-term current use of insulin (C MS/HCC)Start: 07-14-2024 End: 00-55-5373Vwujrs Lakshmi Vera CAR [employer]EREO INSTALLER Work Phone: n[facility] CWM FMComment on above:Low serum parathyroid hormone (PTH) (Primary Dx)Start: 07-09-2024 End: 38-37-7228Kpvgeitvv Result EncounterLisa Aichholz CAR STEREO INSTALLER Work Phone: noms External Department UnsolicitedStart: 07-09-2024 End: 96-34-3928Iuddnaggs Result EncounterLisa Aichholz [employer]O INSTALLER Work Phone: noms External Department UnsolicitedStart: 06-23-2024 End: 24-62-1740AraoqnSwnc Aichholz CAR ST[employer]O INSTALLER Work Phone: [facility] CWM FMComment on above:Diabetic polyneuropathy associated with type 2 diabetes mellitus (CMS/HCC)Start: 06-22-2024 End: 03-33-2444squqzubaulKxysmdb Vytautas Giedraitis MDFacility:PM Toney Start: 06-11-2024 End: 25-02-5076YbhslqDxwb Aichholz CAR STEREO INSTALLER Work Phone: n[facility] CWM FMComment on above:Acute non-recurrent sinusitis of other sinus (Primary Dx)Start: 06-03-2024 End: 61-26-8679Koqskc OnlyLisa Aichholz [employer] Work Phone: [facility] CWM FMComment on above:Hypercalcemia (Primary Dx); Low serum parathyroid hormone (PTH)Start: 05-28-2024 End: 06-17-5396Ibxbwwp encounter procedureSc[facility] Work Phone: Start: 05-28-2024 End: 53-90-5428Kecieet encounter procedureHighland [facility]ron[facility] OrthoStart: 05-28-2024 End: 47-53-0542obwajutiyyZvbtkr Everardo Banks IIFacility:[facility] [place] Campustart: 05-22-2024 End: 88-15-7499Smsjmp OnlyLisa Aichholz [employer] Work Phone: [facility] CWM FMComment on above:Hypercalcemia (Primary Dx) Start: 05-21-2024 End: 87-52-4151Mzeuzczew Result EncounterAmeena Vera [employer] Work Phone: [facility] External Department UnsolicitedStart: 05-21-2024 End: 58-41-4498Ruvrrunim Result EncounterAmeena Vera [employer] Work Phone: [facility]oms External Department UnsolicitedStart: 05-19-2024 End: 17-57-3897Mjepuf flowsheetAmeena Davisholz [employer] Work Phone: [facility] CWM FMStart: 05-19-2024 End: 81-17-5344Ksctsm flowsCarlos Davisholz [employer] Work Phone: [facility]WM FMStart: 05-19-2024 End: 44-50-3110ojdthqkxhuTUCU AICHHOLZNot AvailableStart: 05-19-2024 End: 94-61-7860Nljdnl outpatient visit 25 minutesAmeena Vera [employer] Work Phone: noms CWM FMComment on above:Type 2 diabetes mellitus with diabetic microalbuminuria, without long-term current use of insulin ([facility]) (Primary Dx); Morbid (severe) obesity due to excess calories ([facility]); Other hyperlipidemia; Body mass index (BMI) 39.0-39.9, adult; JANETT (obstructive sleep apnea); Bilateral lower extremity edema; Migraine with aura and without status migrainosus, not intractable ([facility]); Cigarette nicotine dependence without complication; Hypercalcemia; Essential hypertension; Elevated blood uric acid level; Lumbar back pain; Gastroesophageal reflux disease without esophagitis; Chronic gout of multiple sites, unspecified cause; Acute pain of right knee; Diabetic polyneuropathy associated with type 2 diabetes mellitus ([facility])Start: 05-06-2024 End: 56-59-6092MmqxqpEltc Naderer MD Work Phone: noms CWM FMComment on above:Bilateral lower extremity edema (Primary Dx)Start: 04-21-2024 End: 01-05-2476Dnxtoq Justo Wilkerson NP Work Phone: aTRAV BELLEVUEStart: 04-21-2024 End: 69-49-4136Anwymf Justo Wilkerson [employer] Work Phone: aTRAV BELLSWATIUEStart: 04-21-2024 End: 66-83-3402vparoyywhtMSJCVB GILLZACHERYNot AvailableStart: 04-21-2024 End: 31-23-6235Oskvdd outpatient visit 25 minutesZa Wilkerson [employer] Work Phone: aTRAV BELLEVUEComment on above:JANETT (obstructive sleep apnea) (Primary Dx); Hypersomnia; Snoring; Primary insomnia; Tobacco abuseStart: 03-30-2024 End: 99-86-4834Xlxvfn Estefany Drake [employer] Work Phone: NORT CW FMStart: 03-30-2024 End: 64-26-4566Yenlpb Estefany Drake [employer] Work Phone: NOXJ CW FMStart: 03-30-2024 End: 17-36-1813Iicxxx outpatient visit 15 minutesAlicia Monroy MD Work Phone: noms SWS DERMComment on above:Hidradenitis suppurativa (Primary Dx); Lentigines; Melanocytic nevus of trunk; Congenital non-neoplastic nevus; History of basal cell carcinomaStart: 03-30-2024 End: 00-01-0764DhakuiNkwmSavannah [place] CWM FMComment on above:Type 2 diabetes mellitus with diabetic microalbuminuria, without long-term current use of insulin (CMS/HCC)Start: 03-30-2024 End: 85-08-9657Lsozyp outpatient visit 15 minutesSonam Drkae [employer] Work Phone: NOMS CWM FMComment on above:Type 2 diabetes mellitus with diabetic microalbuminuria, without long-term current use of insulin ([facility]/HCC) (Primary Dx); Essential hypertension; Other hyperlipidemia (CMS/HCC); JANETT (obstructive sleep apnea); Type 2 diabetes mellitus without complication, without long-term current use of insulin ([facility])Start: 03-18-2024 End: 43-40-0355Jwgpwpbcb Result EncounterGeneric External Data ProviderNOMS External Department UnsolicitedStart: 03-18-2024 End: 57-26-7743Xcoopcvit Result EncounterGeneric External Data ProviderNOMS External Department UnsolicitedStart: 03-16-2024 End: 40-97-8253WezceeGlbgyoiy Drake [employer] Work Phone: NOMS CWM FMComment on above:Gastroesophageal reflux disease without esophagitisStart: 03-09-2024 End: 98-12-0199ZdtulaLpwqqqqw Drake [employer] Work Phone: noms CWM FMComment on above:Osteoporosis, unspecified osteoporosis type, unspecified pathological fracture presence ([facility])Start: 03-03-2024 End: 89-26-9393Kymqdc flowsheetSonam Marrtrick [employer]ER Work Phone: NOMS CW FMStart: 03-03-2024 End: 29-30-1856Jitgzh flowsheetBrraoany Drake [employer]ER Work Phone: noms CWM FMStart: 03-03-2024 End: 72-17-5288jigdfeimrzERNEAUOO FITZPATRICMIGUELINAot AvailableStart: 03-03-2024 End: 92-19-9565Spidgu outpatient visit 10 minutesSonam Princek [employer]ER Work Phone: NOMS CWM FMComment on above:Upper respiratory infection with cough and congestion (Primary Dx); Lumbar back pain; Migraine with aura and without status migrainosus, not intractable ([facility]); Type 2 diabetes mellitus with diabetic microalbuminuria, without long-term current use of insulin ([facility]); Diabetic polyneuropathy associated with type 2 diabetes mellitus ([facility]); Other hyperlipidemia ([facility])Start: 01-30-2024 End: 66-22-8721Nlddcyvyv Result EncounterGeneric External Data ProviderNOMS External Department UnsolicitedStart: 01-30-2024 End: 79-11-7084Zrkjsefvu Result EncounterGeneric External Data ProviderNOMS External Department UnsolicitedStart: 01-30-2024 End: 06-58-4653NbeuaqUorv [place] CWM FMComment on above:Lumbar back pain (Primary Dx); Type 2 diabetes mellitus with diabetic microalbuminuria, without long-term current use of insulin ([facility])Start: 01-14-2024 End: 07-30-4225BbekqzXsne [place] CWM FMComment on above:Lumbar back pain Start: 12-31-2023 End: 13-16-7595Icuscrbmu Result EncounterBrzulema Princek [employer]ER Work Phone: noms External Department UnsolicitedStart: 12-31-2023 End: 56-22-1956Wsdjqdrcd Result EncounterBrittcarlene MarrDrake [employer]STALLER Work Phone: noms External Department UnsolicitedStart: 12-31-2023 End: 34-49-9770Dskpat consultation new/estab patient 60 minNicole Solo DO Work Phone: noms [place]ILL[address] STATE ROUTEComment on above:JANETT (obstructive sleep apnea) (Primary Dx); Hypersomnia; Snoring; Primary insomnia; Tobacco abuseStart: 12-31-2023 End: 62-70-9477khipdaxxndVMCHHD DANNERNot AvailableStart: 12-30-2023 End: 86-67-5083Gzzfnq flowsheetSonam Marrtrick [employer]ER Work Phone: NOMS CWM FMStart: 12-30-2023 End: 60-21-1606Kaynqw flowsheetBrzulema Marrtrick [employer]ER Work Phone: NOMS CWM FMStart: 12-30-2023 End: 68-60-3195Alourt outpatient visit 15 minutesBrzulema Princek [employer] INSTALLER Work Phone: NOMS CWM FMComment on above:Type 2 diabetes mellitus with diabetic microalbuminuria, without long-term current use of insulin ([facility]) (Primary Dx); Essential hypertension; Other hyperlipidemia ([facility]); Snoring; Mixed urge and stress incontinenceStart: 12-30-2023 End: 12-01-9180pbgyysaaefWZKACLNW FITZPATRICKNot AvailableStart: 12-23-2023 End: 92-89-0033Upolnfyxc Result EncounterGeneric External Data ProviderNOMS External Department UnsolicitedStart: 12-23-2023 End: 27-65-4780Jogforlbe Result EncounterGeneric External Data ProviderNOMS External Department UnsolicitedStart: 12-17-2023 End: 44-31-5932ZcutaoHhll Howard MANOMS CWM FMComment on above:Migraine with aura and without status migrainosus, not intractable ([facility]); Diabetic polyneuropathy associated with type 2 diabetes mellitus ([facility])Start: 12-17-2023 End: 49-30-1709JcywjhKtuncanv Drake [employer]ST[employer]ER Work Phone: NOMS CWM FMComment on above:Gout, unspecified cause, unspecified chronicity, unspecified siteStart: 11-04-2023 End: 73-65-5958GjbzmaOvxkae Robles MANOMS CWM FMComment on above:Gout, unspecified cause, unspecified chronicity, unspecified siteStart: 11-01-2023 End: 90-94-1267RqpvpyEyxysu Robles MANOMS CWM FMComment on above:Diabetic polyneuropathy associated with type 2 diabetes mellitus ([facility]/HCC)Start: 10-17-2023 End: 39-53-6358Drnvrabzs Result EncounterGeneric External Data ProviderNOMS External Department UnsolicitedStart: 10-17-2023 End: 35-24-2442Wppefhqvk Result EncounterGeneric External Data ProviderNOMS External Department UnsolicitedStart: 74-27-8988dycnlaengdJqxwohjd:EU [place] Start: 10-03-2023 End: 96-56-5064Oiiapl flowsheetBrittany Drake [employer]ST[employer]ER Work Phone: noMS CWM FMStart: 10-03-2023 End: 99-32-5231Rdshla flowsheetBrittany Drake [employer] INSTALLER Work Phone: noms CW FMStart: 10-03-2023 End: 96-10-0864Tdnuum outpatient visit 25 minutesLucyzulema Vidal [employer] INSTALLER Work Phone: noms CWM FMComment on above:Essential hypertension (Primary Dx); Type 2 diabetes mellitus with diabetic microalbuminuria, without long-term current use of insulin (CMS/HCC); Morbid (severe) obesity due to excess calories (E66.01); Other hyperlipidemia (CMS/HCC); Lumbar back pain; Type 2 diabetes mellitus without complication, without long-term current use of insulin (CMS/HCC); Diabetic polyneuropathy associated with type 2 diabetes mellitus (CMS/HCC); Mixed urge and stress incontinence; SnoringStart: 09-13-2023 End: 46-27-8797Mxngxudsv Result EncounterGeneric External Data ProviderNOMS External Department UnsolicitedStart: 09-13-2023 End: 62-90-1745Zufahwmuy Result EncounterGeneric External Data ProviderNOMS External Department UnsolicitedStart: 09-04-2023 End: 32-51-8583Hmylqprry Result EncounterGeneric External Data ProviderNOMS External Department UnsolicitedStart: 09-04-2023 End: 76-48-6665Xofwthgwu Result EncounterGeneric External Data ProviderNOMS External Department UnsolicitedStart: 08-14-2023 End: 60-93-7554Acamkqkfy Result EncounterGeneric External Data ProviderNOMS External Department UnsolicitedStart: 08-14-2023 End: 48-10-8218Iuxsbuasx Result EncounterGeneric External Data ProviderNOMS External Department UnsolicitedStart: 07-24-2023 End: 54-05-7030Kbngzkpxp Result EncounterGeneric External Data ProviderNOMS External Department UnsolicitedStart: 07-24-2023 End: 85-66-0440Bzymkmpit Result EncounterGeneric External Data ProviderNOMS External Department UnsolicitedStart: 07-03-2023 End: 92-63-2787Cmwqylcxj Result EncounterGeneric External Data ProviderNOMS External Department UnsolicitedStart: 07-03-2023 End: 16-83-7345Vydfjakxn Result EncounterGeneric External Data ProviderNOMS External Department UnsolicitedStart: 06-08-2023 End: 49-88-0487Znkdpveja Result EncounterAnahi Soriano TARYN Work Phone: noms External Department UnsolicitedStart: 06-08-2023 End: 02-89-7275Qdsyhbvgt Result EncounterAnahi Soriano TARYN Work Phone: noms External Department UnsolicitedStart: 06-06-2023 End: 62-42-6941Oxrgozmqc Result EncounterGeneric External Data ProviderNOMS External Department UnsolicitedStart: 06-06-2023 End: 31-60-8553Kqkyxzbmj Result EncounterGeneric External Data ProviderNOMS External Department UnsolicitedStart: 05-22-2023 End: 69-93-5621Wiusivmgg Result EncounterGeneric External Data ProviderNOMS External Department UnsolicitedStart: 05-22-2023 End: 32-92-1237Gmazpthej Result EncounterGeneric External Data ProviderNOMS External Department UnsolicitedStart: 04-30-2023 End: 25-90-1756yvsrjzdptgWiqopebymKind[facility] Work Phone: Start: 04-30-2023 End: 74-23-6965Mcmuxyc encounter [facility] Work Phone: Start: 91-00-1380Oenjbi Neo Connelly MD Work Phone: noms [facility] IMComment on above:Diabetic polyneuropathy associated with type 2 diabetes mellitus (CMS/HCC) (Primary Dx)Start: 03-20-2023 End: 64-08-7694Xxhbkkslz Result EncounterGeneric External Data ProviderNOMS External Department UnsolicitedStart: 03-20-2023 End: 27-29-4037Uetqnaanj Result EncounterGeneric External Data ProviderNOMS External Department UnsolicitedStart: 03-19-2023 End: 90-14-0624xhdlzfpyorWiwhimt [place] Other [facility] [place] Other Start: 72-91-8991Kmaojt outpatient visit 15 minutes Ana Luisa KirstenFPG Jason OrthopedicsStart: 01-23-2023 End: 26-56-1800sguxhjucvfUtmwlde [place] Other noMyRefers Other Start: 87-58-9502Kpbguv outpatient visit 15 minutes Ana Luisa GeraldoG [facility] OrthopedicsStart: 01-18-2023 End: 83-37-5678pdgbajqjjhAjbmcf Dymond Other noMyRefers Other Start: 33-80-2918Tncxds outpatient visit 15 minutes Elle HendricksFPG [facility] ClydeStart: 09-19-2022 End: 77-34-6506npgdxnzjnmTruxrhb [place] Other noMyRefers Other Start: 01-23-9696Yathtvojc encounterColleen Charmaine [facility] OrthopedicsStart: 64-64-2960pfnuagmlntVR JONATHAN HOUSEFacility:U2Nfeig: 06-07-2022 End: 76-20-3740usjrsirbrnWZ JONATHAN HOUSEFacility:U6Nowov: 05-02-2022 End: 65-46-9494ywtjhzerivXqppvdi [place] Other noMyRefers Other Start: 81-75-9005Fueddg outpatient new 30 minutes Ana Luisa GeraldoG [facility] OrthopedicsStart: 04-12-2022 End: 91-57-5272bwftvoethyRY JONATHAN HOUSEFacility:V1Vtrkq: 03-08-2022 End: 19-21-1881egsduisuyaBN JONATHAN HOUSEFacility:P8Vkgui: 02-16-2022 End: 96-79-1776tpfppieufdKT JONATHAN HOUSEFacility:U4Rhxcw: 02-09-2022 End: 54-89-8149vdtglzbbqeAW RICARDO HOLM .Facility:U6Dcfnt: 11-16-2021 End: 01-90-9958qhedxosxcvEJ JONATHAN HOUSEFacility:H1Jiwyk: 11-01-2021 End: 33-51-5840mojdgrtfofRORD SOLIS .Facility:N8Vynce: 08-30-2021 End: 40-15-4887xjfjhpzokzBNECB SP [facility]Start: 08-30[facility]2021 End: 47-71-8462Uctqesuxja hospital visit by physicianSr Okoboji DO Work Phone: mthz LaboratoryComment on above:Routine cervical smear Start: 26-75-0663Juhnmimzv for general adult medical examination without abnormal findingsDR RICARDO S HOLM .[facility]: [facility]2021 End: 72-20-7750Rkgjekqyn for general adult medical examination without abnormal findingsDR RICARDO S HOLM .Facility:S7Xhedv: 08-09-2021 End: 33-00-1068pvjmxafnkwMZ RICARDO S HOLM .Facility:C0Grtlq: 07-19-2021 End: 26-99-9393rxizjwxtjkQVEO SOLIS .Facility:L2Omlua: 07-05-2021 End: 26-68-8601bttmsngvoqJQFDV D [facility]:A7Fwnue: 07-04-2021 End: 50-33-1420nzjlnbhujhHR RICARDO S HOLM .Facility:J3Pcnoe: 06-20-2021 End: 27-42-6664baezqmbnxyYB RICARDO S HOLM .Facility:[address] DateProcedureProcedure DetailPerforming ClinicianStart: 59-49-8338Dupmmasuxz glycosylated x7xDtfy Chuy [employer] Work Phone: Start: 46-28-9122VZO BASIC METABOLIC PANELLisa Chuy [employer] INSTALLER Work Phone: Start: 99-80-3413Pwtov radiography of pelvisStart: 35-28-3651U-ray of right knee, four viewsStart: 13-76-0555Rxrtwdbyed examination knee 3 viewsLisa Vera [employer] INSTALLER Work Phone: Start: 42-12-6157MJP CBC WITH AUTO DIFFLisa Chuy [employer] INSTALLER Work Phone: Start: 08-45-3606Qgtgxsyaos glycosylated t8gEwni Chuy [employer] INSTALLER Work Phone: Start: 71-94-6928Txpfabfofy glycosylated p7kZbtyrqczSonam Drake [employer] INSTALLER Work Phone: Start: 66-81-5794EU TOMOSYNTHESIS SCREENING BIGeneric External Data ProviderStart: 90-18-1308PgtudmhuwlfRdzqgmp ProviderStart: 83-54-5243TD FOOT LT MIN 3VGeneric External Data ProviderStart: 19-05-1147BUY CBC WITH AUTO DIFFBrittany Vidal [employer] INST[employer]ER Work Phone: Start: 73-46-2156CG FOOT LT MIN 3VGeneric External Data ProviderStart: 23-02-2667RP FOOT LT MIN 3VGeneric External Data Provider Start: 51-84-7592CV FOOT LT WO CONGeneric External Data ProviderStart: 41-80-5078UR FOOT LT MIN 3VGeneric External Data ProviderStart: 99-48-3657NJ FOOT LT MIN 3VGeneric External Data ProviderStart: 61-91-9973GY TIBIA FIBULA LT 2VGeneric External Data ProviderStart: 84-28-2613VI FOOT LT MIN 3VGeneric External Data ProviderStart: 29-62-9211LV FOOT LT MIN 3VGeneric External Data ProviderStart: 49-19-5430RX FOOT LT WO Felicia CENTENO Work Phone: Start: 81-94-9983COC 12-LEADAnahi CENTENO Work Phone: Start: 32-19-2554BL LUMBAR SPINE WO CONGeneric External Data ProviderStart: 10-36-7533TY LUMBAR SPINE 6V W BENDINGGeneric External Data ProviderStart: 02-43-4179YO TOMOSYNTHESIS SCREENING BIGeneric External Data ProviderStart: 17-81-9395WJV LIPID PROFILE (FASTING)Shaikh Maricel HOLLIS Work Phone: Start: 76-23-9175AANN LIVER Gina Connelly MD Work Phone: Start: 27-03-6915VG DEXA AXIAL SKELETONGeneric External Data ProviderStart: 69-83-7966QrxmunaaslyHzkswm Fawwad MD Work Phone: Start: 83-95-2569Thkglkfoqzu observation [Identifier] in Cervix by Cyto stainSr Grace DO Work Phone: Plan of Treatment DateCare ActivityDetailAuthorStart: 34-08-0362Abxilyulg for malignant neoplasm of colonNOMS HealthcareStart: 39-52-2369Cvubuerfy for malignant neoplasm of colonNOMS HealthcareStart: 32-39-4647Lstor screening for proteinDiabetes: Urine Protein ScreeningNOMS HealthcareStart: 05-03-2025 End: 07-67-9022Ozxeokh encounter /23/2026 1:00 PM EDT Office Visit [facility] [address] [place] [address] Kasi Bennett MD [address] [place] [address] [facility]inologyStart: 04-06-2025 End: 77-22-5072Kaxugbs encounter ebogughwl49/24/2026 1:15 PM EST Office Visit [facility] [address] [place] [phone] Alicia Monroy MD [address] [place] [address] [facility]ermatologyStart: 03-30-2025 End: 68-19-6900Tzvwkor encounter procedureNOMS SWS DERMStart: 03-18-2025 Screening for malignant neoplasm of breastMammogramNOMS HealthcareStart: 20-65-9983Xrqjclkplo A1c measurementDiabetes: Hemoglobin C4AMLQF Healthcare Start: 77-25-2650Fiwke screening for proteinDiabetes: Urine Protein Screening NOMS HealthcareStart: 11-23-2024 End: 84-15-2341Koohdfr encounter tmeukbwvz65/13/2025 1:00 PM EDT Office Visit [facility] [address] [place] [address] Ameena Vera, RONALDO [address] [place] [address] [facility] FMStart: 99-35-8767Jtqdgcphwb A1c measurement Diabetes: Hemoglobin C1DMLIG HealthcareStart: 11-02-2024 End: 843439-frrsizhmpncpao D3 [Mass/volume] in Serum or PlasmaVitamin D 25 hydroxy Total Lab Routine Low serum parathyroid hormone (PTH) Hypercalcemia Vitamin D deficiency Hypomagnesemia Expected: 11/02/2024 (Approximate), Expires: 11/02/2025[facility] HealthcareComment on above:Expected: 11/02/2024 (Approximate), Expires: 11/02/2025Start: 11-02-2024 End: 10-60-5631Pmigqxcbr [Mass/volume] in Serum or PlasmaMagnesium Lab Routine Low serum parathyroid hormone (PTH) Hypercalcemia Vitamin D deficiency Hypomag nesemia Expected: 11/02/2024 (Approximate), Expires: 11/02/2025[facility] Healthcare Work Phone: Comment on above:Expected: 11/02/2024 (Approximate), Expires: 11/02/2025Start: 11-02-2024 End: 75-71-9094Mzedysnzih.intact and Calcium panel - Serum or PlasmaPTH, intact and calcium Lab Routine Low serum parathyroid hormone (PTH) Hypercalcemia Vitamin D deficiency Hypomagnesemia Expected: 11/02/2024 (Approximate), Expires: 11/02/2025[facility] HealthcareComment on above:Expected: 11/02/2024 (Approximate), Expires: 11/02/2025Start: 11-02-2024 End: 63-05-7822Ctsrg function panelRenal function panel Lab Routine Low serum parathyroid hormone (PTH) Hypercalcemia Vitamin D deficiency Hypomagnesemia Expected: 11/02/2024 (Approximate), Expires: 11/02/2025[facility] HealthcareComment on above:Expected: 11/02/2024 (Approximate), Expires: 11/02/2025Start: 11-02-2024 End: 48-43-7561Wthfyrm encounter procedureNOMS [facility] EndocrinologyComment on above:ArrivedStart: 10-26-2024 End: 75-25-1533Niuungz encounter ewddfkszv84/15/2025 1:20 PM EDT Office Visit FARSHAD QASIM [address] [place] [phone] Za Wilkerson NP [address] [place], [place] FARSHAD DÍAZtart: 10-19-2024 End: 87-28-2080Qulepus encounter pfpmxvazf18/08/2025 11:30 AM EDT Office Visit [facility] [address] [place] [address] Ameena Vera NP [address] [place] [address] [facility] FMStart: 20-88-0700Vfsyrlxdj vaccinationOREM COMMUNITY [facility]PITAL HealthcareStart: 09-30-2024 End: 04-38-9927Yrpmcss encounter procedureNO ENDOCRINOLOGYStart: 09-27-2024 Hemoglobin A1c measurementDiabetes: Hemoglobin N9EDYAH HealthcareStart: 86-14-9973Mvgtascsl for malignant neoplasm of [facility]CH[facility] Start: 08-20-2024 End: 51-94-9489Incwffp encounter jicrnjdvl26/10/2025 10:30 AM EDT Office Visit [facility] [address] [place] [address] Ameena Vera NP [address] [place] [address] [facility] FMStart: 07-29-2024 End: 33-06-268622160510-ewinsezzirwthu D3 [Mass/volume] in Serum or PlasmaVitamin D 25 hydroxy Total Lab Routine Low serum parathyroid hormone (PTH) Hypercalcemia Vitamin D deficiency Expected: 07/29/2024 (Approximate), Expires: 07/29/2025[facility] HealthcareComment on above:Expected: 07/29/2024 (Approximate), Expires: 07/29/2025Start: 07-29-2024 End: 52-42-4911Ufjxtfywt [Mass/volume] in Serum or PlasmaMagnesium Lab Routine Low serum parathyroid hormone (PTH) Hypercalcemia Expected: 07/29/2024 (Approx imate), Expires: 07/29/2025[facility] Healthcare Work Phone: Comment on above:Expected: 07/29/2024 (Approximate), Expires: 07/29/2025Start: 07-29-2024 End: 97-71-7687Uzmetvcgtd.intact and Calcium panel - Serum or PlasmaPTH, intact and calcium Lab Routine Low serum parathyroid hormone (PTH) Hypercalcemia Expected: 07/29/2024 (Approximate), Expires: 07/29/2025[facility] HealthcareComment on above:Expected: 07/29/2024 (Approximate), Expires: 07/29/2025Start: 07-29-2024 End: 45-72-4452Dbvgtyp encounter procedureNOOZARKS [facility] ENDOCRINOLOGYComment on above: Low serum parathyroid hormone (PTH)Start: 07-29-2024 End: 36-57-3441Gjgba function panelRenal function panel Lab Routine Low serum parathyroid hormone (PTH) Hypercalcemia Expected: 07/29/2024 (Approximate), Expires: 07/29/2025[facility] HealthcareComment on above:Expected: 07/29/2024 (Approximate), Expires: 07/29/2025Start: 79-56-3308Pzkkp screening for protein Diabetes: Urine Protein ScreeningOREM COMMUNITY [facility]ITAL HealthcareStart: 07-03-2024 End: 769593-vptftralbsevwd D3 [Mass/volume] in Serum or PlasmaVitamin D 25 hydroxy Lab Routine Hypercalcemia Expected: 07/03/2024 (Approximate), Expires: 06/03/2025[facility] HealthcareComment on above:Expected: 07/03/2024 (Approximate), Expires: 06/03/2025Start: 07-03-2024 End: 91-80-1663Gnicr metabolic 1998 panel - Serum or PlasmaBasic metabolic panel Lab Routine Hypercalcemia Low serum parathyroid hormone (PTH) Expected: 2024 (Approximate), Expires: 06/03/2025NONC HealthcareComment on above:Expected: 07/03/2024 (Approximate), Expires: 06/03/2025Start: 07-03-2024 End: 12-03-8065Uaodxhbktj.intact [Mass/volume] in Serum or PlasmaPTH, intact Lab Routine Low serum parathyroid hormone (PTH) Expected: 07/03/2024 (Approximate), Expires: 06/03/2025[facility] Work Phone: Comment on above:Expected: 07/03/2024 (Approximate), Expires: 06/03/2025Start: 06-25-2024 End: 73-78-0275Uzvvrlh encounter procedureNOMS CWM FMStart: 05-22-2024 End: 73-98-7799Lyfcoqzbiw.intact [Mass/volume] in Serum or PlasmaPTH, intact Lab Routine Hypercalcemia Expected: 05/22/2024 (Approximate), Expires: 05/22/2025 [facility] Work Phone: Comment on above:Expected: 05/22/2024 (Approximate), Expires: 05/22/2025Start: 05-19-2024 End: 294376-wpsbycqpvbygzc D3 [Mass/volume] in Serum or PlasmaVitamin D 25 hydroxy Lab Routine Hypercalcemia Expected: 05/19/2024 (Approximate), Expires: 05/19/2025[facility] HealthcareComment on above:Expected: 05/19/2024 (Approximate), Expires: 05/19/2025Start: 05-19-2024 End: 06-45-6497XEB W Auto Differential panel - BloodCBC and differential Lab Routine JANETT (obstructive sleep apnea) Cigarette nicotine dependence without complication Expected: 05/19/2024 (Approximate), Expires: 05/19/2025NON[facility] HealthcareComment on above:Expected: 05/19/2024 (Approximate), Expires: 05/19/2025Start: 05-19-2024 End: 1963Zhcybyvptsfpf metabolic 2000 panel - Serum or PlasmaComprehensive metabolic panel Lab Routine Other hyperlipidemia Bilateral lower extremity edema Type2 diabetes mellitus with diabetic microalbuminuria, without long-term current use of insulin ([facility]) Hypercalcemia Essential hypertension Expected: 05/19/2024 (Approximate), Expires: 05/19/2025[facility] HealthcareComment on above: Expected: 05/19/2024 (Approximate), Expires: 05/19/2025Start: 05-19-2024 End: 34-01-1189Rkhql 1996 panel - Serum or PlasmaLipid panel Lab Routine Other hyperlipidemia Expected: 05/19/2024 (Approximate), Expires: 05/19/2025[facility] Work Phone: Comment on above:Expected: 05/19/2024 (Approximate), Expires: 05/19/2025Start: 05-19-2024 End: 82-78-8630Osddqpcjnbce/Creatinine panel in random UrineMicroalbumin / creatinine, urine ratio Lab Routine Type 2 diabetes mellitus with diabetic microalbuminuria, without long-term current use of insulin ([facility]) Essential hypertension Expected: 05/19/2024 (Approximate), Expires: 05/19/2025NONC HealthcareComment on above:Expected: 05/19/2024 (Approximate), Expires: 05/19/2025Start: 05-19-2024 End: 65-44-1750Jyljrhafhh.intact [Mass/volume] in Serum or PlasmaPTH, intact Lab Routine Hypercalcemia Expected: 05/19/2024 (Approximate), Expires: 05/19/2025 NOM[facility] HealthcareComment on above:Expected: 05/19/2024 (Approximate), Expires: 05/19/2025Start: 05-19-2024 End: 39-91-4916Nkpnx [Mass/volume] in Serum or PlasmaUric acid Lab Routine Elevated blood uric acid level Expected: 05/19/2024 (Approximate), Expires: NONC HealthcareComment on above:Expected: 05/19/2024 (Approximate), Expires: 05/19/2025Start: 05-19-2024 End: 94-90-6350Zfttfbhnpg complete panel - UrineUrinalysis with reflex microscopic (clean catch) Lab Routine Type 2 diabetes mellitus with diabetic microalbuminuria, without long-term current use of insulin ([facility]) Cigarette nicotine dependence without complication Essential hypertension Elevated blood uric acid level Expected: 05/19/2024 (Approximate), Expires: 05/19/2025NOMS HealthcareComment on above:Expected: 05/19/2024 (Approximate), Expires: 05/19/2025Start: 05-19-2024 End: 42-35-7548DF Knee - right 3 ViewsXR knee 3 views right Imaging Routine Acute pain of right knee Expected: 05/19/2024 (Approximate), Expires: 05/19/2025 NOMS HealthcareComment on above:Expected: 05/19/2024 (Approximate), Expires: 05/19/2025Start: 05-19-2024 End: 13-37-4120Dhhtdnf encounter rmeeeaqwb27/08/2025 11:00 AM EDT Office Visit [facility] [address] [place] [address] Ameena Vera NP [address] [place] [address] [facility] SHIVANI FMStart: 04-21-2024 End: 92-63-0127Forprhy encounter nrxxnsita08/11/2025 1:00 PM EDT Office Visit [facility] [address] [place] [address] Za Wilkerson NP [address] [place], [place] FARSHAD DÍAZtart: 03-30-2024 End: 07-90-9253Kqxbotc encounter ttahuutvj41/17/2025 11:05 AM EST Office Visit [facility]UT[facility]UER[facility] [address] [place] [address] Alicia Monroy MD [address] [place] [address] [facility] SWS DERMStart: 03-26-2024 End: 43-03-6354Pscpvub encounter mqtcaqbmo08/13/2025 2:00 PM EST Office Visit [facility] [address] [place] [address] Sonam Drake, RONALDO [address] [place] [address] [facility] CW FMStart: 03-24-2024 End: 99-63-4605Flrkoud encounter procedureNOKNOX [facility] ROUTEStart: 25-97-4293Rxxntdzov for malignant neoplasm of breastMammogramOREM COMMUNITY [facility] Healthcare Start: 02-27-2024 End: 21-95-6173Prmfddf encounter nxcruuedn74/16/2025 11:35 AM EST Office Visit [facility]RUTI DERM [address] [place] [address] Alicia Monroy MD [address] [place] [address] N[facility] SWS DERMStart: 02-25-2024 End: 92-96-7531Wuwzzua encounter zwasxqame40/14/2025 3:30 PM EST Office Visit [facility] ALEX [facility] [address] [place] [address] Sonam Drake NP [address] [place] [address] NOM[facility] CW FMStart: 01-10-2025Medicare Annual Wellness (AWV) Medicare Annual Wellness (AWV)[facility] HealthcareStart: 25-64-9585Nxsuexlg screening Diabetes: Retinopathy ScreeningNONC HealthcareStart: 16-48-7634Vqcsfwvggw A1c measurementDiabetes: Hemoglobin T7REWQE HealthcareStart: 12-31-2023 End: 72-79-1875GugsdpufabjwghzUvwnrmwfjvsjtup Sleep Center Routine JANETT (obstructive sleep apnea) Expected: 12/31/2023 (Approximate), Expires: 12/30/2024NO Healthcare Work Phone: comment on above:Expected: 12/31/2023 (Approximate), Expires: 12/30/2024Start: 12-31-2023 End: 71-78-7858Dsqjujz encounter azrfbyydp79/19/2024 10:00 AM EST [facility] [address] [place] [address] Sivan Banda, DO [address] [place] [address] [facility] ROUTEStart: 12-30-2023 End: 48-62-3110QML W Auto Differential panel - BloodCBC and differential Lab Routine Type 2 diabetes mellitus with diabetic microalbuminuria, without long- term current use of insulin (CMS/HCC) Essential hypertension Expected: 12/30/2023 (Approximate),Expires: 12/29/2024NONC HealthcareComment on above: Expected: 12/30/2023 (Approximate), Expires: 12/29/2024Start: 12-30-2023 End: 33-23-0405Tgerbpppeslrn metabolic 2000 panel - Serum or PlasmaComprehensive metabolic panel Lab Routine Type 2 diabetes mellitus with diabetic microalbuminuria, without long-term current use of insulin (CMS/HCC) Essential hypertension Expected: 12/30/2023 (Approximate), Expires: 12/29/2024NONC HealthcareComment on above:Expected: 12/30/2023 (Approximate), Expires: 12/29/2024Start: 12-30-2023 End: 81-62-2873Cdbolroudu A1c/Hemoglobin.total in BloodHemoglobin A1c Lab Routine Type 2 diabetes mellitus with diabetic microalbuminuria, without long-term current use of insulin (CMS/HCC) Expected: 12/30/2023 (Approximate), Expires: 12/29/2024NONC HealthcareComment on above:Expected: 12/30/2023 (Approximate), Expires: 12/29/2024Start: 12-30-2023 End: 66-81-8548Cebhcwh encounter /18/2024 10:30 AM EST Office Visit [facility] [address] [place] [address] Sonam Drake NP [address] [place] [address] N[facility] CWM FMStart: 11-04-2023 End: 68-61-7483Ukvjtdy encounter dndvilesl31/23/2024 2:30 PM EDT Office Visit [facility] [place] [address] [place] [address] Sivan Banda, [address] [place] [address] [facility] ROUTEStart: 34-20-0232Fqakqcjkl vaccinationInfluenza Vaccine (#1)[facility] HealthcareStart: 02-42-0307Majoqwgmq vaccinationInfluenza Vaccine (#1)NOMS HealthcareComment on above:Postponed from 10/12/2022 (Patient Refused)Start: 05-02-2023 End: 45-71-0678Vuboqld encounter afjudeagk39/21/2024 2:00 PM EDT Office Visit [facility] [address] [place] [address] Shaikh Connelly MD [address] [place] [address] NOM[facility] CWM IMStart: 38-33-4812Ttskxxisnm A1c measurement Diabetes: Hemoglobin C1JURCY HealthcareStart: 09-04-2022 End: 29-79-0325Rchgxqj encounter qzznatejl64/25/2023 Office Visit Obstetrics and Gynecology Radha Barclay, [place] - CRISTAL [address] [place] [address] [facility] Part [facility] Centertart: 17-78-8496Jxklnjfgm vaccinationFlu vaccine (#1)[facility]Start: 48-99-8973Uqkiyqlbj for malignant neoplasm of breastBreast cancer screenWellmont Health Systemart: 10-21-2013 Shingles vaccine (1 of 2)Shingles vaccine (1 of 2)[facility] Systemart: 48-48-8010Smwdvjwev for malignant neoplasm of colonB[facility] Start: 94-75-6035Wtkvp panelLipidsCHESAPEAKE REGIONAL MEDICAL CENTERStart: 10-21-1998 Diabetes screenDiabetes screenCHESAPEAKE REGIONAL MEDICAL CENTERStart: 26-61-9615Rszaztkrk for malignant neoplasm of cervixWellmont Health Systemart: 10-21-1982 DTaP/Tdap/Td vaccine (1 - Tdap)DTaP/Tdap/Td vaccine (1 - Tdap)[facility] Systemart: 07-37-2837Vkgto screening for proteinDiabetes: Urine Protein ScreeningChildren's Mercy HospitalStart: 25-80-6638Zfuxhnupx C screeningHepatitis C screen [facility] Systemart: 76-16-6331GQC screeningHIV [facility] Hospitalart: 48-17-5109Ljvomnfjeh ScreenDepression [facility] Centerart: 54-69-9136STDWK-19 Vaccine (#1)COVID-19 Vaccine (#1)[facility] Systemart: 61-41-4950Suurbtgju for malignant neoplasm of colonChildren's Mercy Hospital End: 29-92-7094Qkueryrdnpdng procedure, preparation of smear, genital sourcePAP SMEAR Lab Routine Routine cervical smear 1 Occurrences starting 08/30/2021 until 08/30/2021[facility] Work Phone: Comment on above:1 Occurrences starting 08/30/2021 until 08/30/2021Microalbumin/Creatinine panel in random UrineMicroalbumin / creatinine urine ratio Lab Routine Type 2 diabetes mellitus with diabetic microalbuminuria, without long-term current use of insulin ([facility]) Essential hypertension Ordered: 12/30/2023[facility] Work Phone: Comment on above:Ordered: 4Patient Education Low back pain in adultsSt. Rita'S Hospital Work Phone: xr Wrist - left GE 3 [facility] Immunizations Immunization DateImmunizationNotesCare IehnajwoUqdqkznh58-30-3376osnxkresv, injectable, quadrivalent, preservative [facility] 13-87-2362ugevkwqee virus vaccine, unspecified formulationSonam Drake NP Work Phone: [facility] Payers DatePayer CategoryPayerPolicy [id number]-[id number] [id number] Health Insurance [id number].446945.38962-17-7027Mhaccdk 1.2.840.435135.1.13.693.2.7.3.813218.42313-28-2439Eqwavab7/628250-52-0215 Medicare1.2.840.834083.1.13.693.2.7.3.381[id number] 2.0.1.435516.3.57[id number] 2.840.1.866175.3.579.2.12867-52-9483Kbzbtei3865582 2.840.1.554784.3.579.2.20887-75-5943Fuieqne6391178 2.840.1.958409.3.579.2.53113-22-5910Ycxkedz1402136 2.840.1.436647.3.579.2.28722-82-2266Zurhmsw8326129 2.16.840.1.255916.3.579.2.21325-35-4017Feroeai8056488 2.16.840.1.733196.3.579.2.19916-08-4541Buhseki8007013 2.16.840.1.590134.3.579.2.18885-25-2827Qicxlxb9964015 2.16.840.1.275784.3.579.2.73255-83-7002Gjmvvdt7175960 2.16840.1.967000.3.579.2.94334-27-9959Syfxjaf2743855 2.840.1.956007.3.579.2.94366-52-4896Dguwmgm5869784 2.840.1.121583.3.579.2.97889-82-0292Htbfpyo5638745 2.840.1.235336.3.579.2.19512-05-1837Wghmbem3304194 2.840.1.216443.3.579.2.18993-82-1166Jcexqtk4399595 2.840.1.489531.3.579.2.60825-71-0670Cutxnsr1936482 2.840.1.423279.3.579.2.60296-85-4240Qgcdrka1270676 2.840.1.439767.3.579.2.84417-64-3728Mkofctz38614195 2.840.1.146772.3.579.2.482291-04-0699Bvzqvgb85641503 2.16840.1.627412.3.579.2.924651-69-1742Aorhldv73218635 2.16840.1.988602.3.579.2.797137-18-7024Pcousob6316796 2.16.840.1.836143.3.579.2.787135-11-0654Lvukmhf0545178 2.16.840.1.744391.3.579.2.314178-53-6858Neihtfz2035362 2.16.840.1.912332.3.579.2.567177-64-2278Fhrzvse3373637 2.16.840.1.868667.3.579.2.882366-92-1954Uqizjqi7446607 2.16.840.1.515485.3.579.2.360330-08-4339Mphdoqe5226114 2.840.1.117470.3.579.2.477150-00-1186Hgxpavt5563376 2.840.1.981296.3.579.2.237507-46-5037Ofkxfpr941394079 2.840.1.633894.3.579.2.96107-11-0649Jkalhul720558742 2..840.1.852387.3.579.2.77556-31-9633Pqasoyq202017084 2.16.840.1.329147.3.579.2.196 1960Medicare1NP7T58PM49 1.2.840.311040.1.13.239.2.7.3.977449.48915-84-8398Ulcpxew083743534 1.2.840.121647.1.13.239.2.7.3.011693.35828-23-4813Yyegnrp26225924 2.16.840.1.3[id number] qz364956-7287-482r-aj3o-z51fk5694d51Rwswuus44065136 2.16840.1.384359.3.579.2.531 Social History DateTypeDetailFacilityStart: 08-30-2021 End: 09-49-0653Nptyayo smoking status NHISSmokes tobacco dailyDIGNITY HE[facility] ST[facility] [employer] Phone: History of tobacco useCigarette SmokerDIGNITY HEALTH ST. [facility] [employer] Phone: start: 08-30-2021 End: 51-73-7024Kpoksph use and exposureSmokeless tobacco non-userDIGNITY HEALTH ST. [facility] [employer] Phone: start: 10-40-6079Cezbjoy intakeCurrent drinker of alcohol (finding)[facility]ENTERM[facility] Phone: start: 59-19-1071Yljnxsl SDOH Alcohol Comment occasionalDIGNITY HEALTH ST. [facility] [employer] Phone: start: 85-68-8194Ndh Assigned At [facility] HospitalNot on fileDIGNITY HE[facility] ST[facility] [employer] Work Phone: start: 08-20-2021 End: 74-38-0347Fjdadojc to SARS-CoV-2 (event)Not sureDIGNITY HEALTH ST. [facility] [employer] Start: 02-25-2023 End: 84-54-6272Fon Assigned At [facility] HealthcareStart: 01-29-2023 End: 76-13-3862Tbpzazy smoking status NHISEx-smokerNONC HealthcareHistory of tobacco useCurrent smokerNONC HealthcareStart: 01-29-2023 End: 34-13-3493Rbviongbnq smoked current (pack per day) - Reported0.5NONC HealthcareStart: 02-25-2023 End: 24-01-2716Bhcgstk intakeLifetime non-drinker (finding)NOM HealthcareStart: 08-40-8614Yhd Assigned At [facility] CenterHistory of tobacco usePassive smokerNOMS HealthcareStart: 06-66-2637Tcb often do you need to have someone help you when you read instructions, pamphlets, or other written material from your doctor or pharmacy [SILS]Patient declines to respond NOM[facility] HealthcareAre you now , , , , never or living with a partner?MarriedNOMS HealthcareHow often to you have a drink containing alcohol?Monthly or lessNOMS HealthcareHow many standard drinks containing alcohol do you have on a typical day?1 or 2NOMS HealthcareHow often do you have 6 or more drinks on 1 occasion?NeverNOMS HealthcareDo you feel stress - tense, restless, nervous, or anxious, or unable to sleep at night because yourmind is troubled all the time - these days [OSQ]To some extentNONC HealthcareStart: 83-08-4250VnbPfayea (finding)[facility] Medical Equipment Procedure CodeEquipment CodeEquipment Original TextEquipment IdentifierDates [id number]: 06-08-2021 End: 04-21-2024 Functional Status DxecGtncweacidAryjbwOrawrkdd08-90-4678Bikbucc Health Questionnaire 2 item (PHQ- 2) [Reported][facility]cy HospitalIpbyiachsh91-09-1367Ezjfr score [AUDIT-C]1 10/02/2023 11:47 AM EDT Mychart, GenericNOSainte Genevieve County Memorial HospitalPcnlagjmdv13-84-2366Vxg often do you have a drink containing alcohol?Monthly or less 10/02/2023 11:47 AM EDT Mychart, Generic Monthly or lessNOSainte Genevieve County Memorial HospitalFvvzanhbcw23-86-7622Nhb many standard drinks containing alcohol do you have on a typical day?1 or 2 10/02/2023 11:47 AM EDT Mychart, Generic 1 or 2NOMS Mrgkubocqn99-81-0997Ttm often do you have 6 or more drinks on 1 occasion?Never 10/02/2023 11:47 AM EDT Mychart, Generic NeverNOSainte Genevieve County Memorial Hospital 00-53-8459Gvjbnst Health Questionnaire 2 item (PHQ-2) [Reported][facility] 41-12-3685Amoczdz Health Questionnaire 2 item (PHQ-2) [Reported][facility] 84-34-2143Uarkqab Health Questionnaire 2 item (PHQ-2) [Reported][facility] 98-84-7439Poreetk Health Questionnaire 2 item (PHQ-2) [Reported][facility] Clinical Notes 06-20-2021 to 11-02-2024 Note Date & VdatIwfrOghqaycp77-91-4285 History of Present illness Narrative* Ahmad F Sabrina, MD - 11/02/2024 10:10 AM EDT Karina De Oliveira is a 59 y.o. [...] MORE THAN 3 TABLETS DAILY Continuous Glucose Drug Abuse Counselor (Dexcom G7 Drug Abuse Counselor) device 1 each, Does not apply, Continuous [...] 6 months (around 05/02/2025). documented in this encounterChildren's Mercy HospitalZmfnkpvjvm65-64-3975 Evaluation note* Diagnosis Onset Date Resolution Status Admit Date Back spasm acuteSeptember 2024 11:32amDiabetic polyneuropathyacuteSept2024 11:32amEssential hypertensionacuteSept2024 11:32amLumbar back pain acuteSept2024 11:32amMorbid obesity due to excess caloriesacute October 19, 2024 11:32amChronic gout of multiple sitesacuteOctober 2024 1:05pmEssential hypertensionacuteOctober 2024 1:05pmMixed hyperlipidemia acuteOctober 2024 1:05pmMorbid obesity due to excess caloriesacuteOctober 2024 1:05pmNicotine dependence with current useacuteOctober 2024 1:05pmType 2 diabetes mellitus with diabetic microalbuminuria, without long-term acuteOctober 2024 1:05pmWrist pain, leftacuteOctober 2024 1:05pm [facility] Work Phone: 1(732) 130-808109-08-2025 Evaluation note* Diagnosis Onset Date Resolution Status Admit Date Back spasm acuteSept2024 11:32amDiabetic polyneuropathyacuteSept2024 11:32amEssential hypertensionacuteSept2024 11:32amLumbar back pain acuteSept2024 11:32amMorbid obesity due to excess caloriesacute October 19, 2024 11:32amChronic gout of multiple sitesacuteOctober 2024 1:05pmEssential hypertensionacuteOctober 2024 1:05pmMixed hyperlipidemia acuteOctober 2024 1:05pmMorbid obesity due to excess caloriesacuteOctober 2024 1:05pmNicotine dependence with current useacuteOctober 2024 1:05pmType 2 diabetes mellitus with diabetic microalbuminuria, without long-term acuteOctober 2024 1:05pmWrist pain, leftacuteOctober 2024 1:05pm Primary osteoarthritis of right kneeacuteOctober 2024 11:33am [facility] Work Phone: 1(792) 722-390107-10-2025 History of Present illness Narrative* Ameena Vera [...] 6.3%, 94% TIR , 4% high 30 jgd852, 6.3%m 93% TIR, and 5% high, 1 [...] MORE THAN 3 TABLETS DAILY Continuous Glucose Drug Abuse Counselor (Dexcom G7 Drug Abuse Counselor) device 1 each, Does not apply, Continuous [...] microalbuminuria, without long-term current use of insulin ([facility]) - Primary Check blood sugars daily, notify [...] of the risks of continued smoking: stroke, AR, all forms of cancer, lung disease, and [...] of the risks of continued smoking: stroke, AR, all forms of cancer, lung disease, and [...] legs Current meds: none documented in this [facility]07-10-2025 Telephone encounter Note* Telephone Encounter - Ameena Vera NP - 08/20/2024 11:19 AM EDT Please call [facility] in [place] for copy of diabetic eye exam [place] [facility] Oytzaxodlq82-71-8559 Miscellaneous Notes* Telephone Encounter - Ameena Vera NP - 08/20/2024 11:19 AM EDT Please call [facility] in [place] for copy of diabetic eye exam [place] documented in this [facility]07-10-2025 Instructions* Patient Instructions* Ameena Vera NP - 08/20/2024 10:30 AM EDT Furosemide every other day 1/2 tablet documented in this [facility]06-18-2025 History of Present illness Narrative* Kasi Bennett [...] MORE THAN 3 TABLETS DAILY Continuous Glucose Drug Abuse Counselor (Dexcom G7 Drug Abuse Counselor) device 1 each, Does not apply, Continuous [...] 2 months (around 09/28/2024). [facility]OR[facility] Veyzvdiajz16-51-8153 Evaluation note* Diagnosis Onset Date Resolution Status Admit Date Primary osteoarthritis of right knee acuteApril 2024 12:55pm [facility] Work Phone: 1(705) 455-232404-11-2025 History of Present illness Narrative* Ameena Vera NP - 05/22/2024 7:25 AM EDT par documented in this encounterChildren's Mercy HospitalKsxunglwli81-55-6781 History of Present illness Narrative* Ameena Vera [...] orthopedic surgeon in the past back in [place] for that knee however she does not [...] orthopedic surgeon in the past back in [place] for that knee however she does not [...] MORE THAN 3 TABLETS DAILY Continuous Glucose Drug Abuse Counselor (Dexcom G7 Drug Abuse Counselor) device 1 each, Does not apply, Continuous [...] long-term current use of insulin ([facility]) Check blood sugars daily, notify if <70 [...] without status migrainosus, not intractable ([facility]) Current meds: maxalt, depakote Other hyperlipidemia On [...] of the risks of continued smoking: stroke, AR, all forms of cancer, lung disease, and [...] of the risks of continued smoking: stroke, AR, all forms of cancer, lung disease, and [...] not intractable (CMS/HCC) Current meds: maxalt, depakote * Ameena Vera NP - 05/19/2024 6:51 AM EDTAssociated Problem(s): Type 2 diabetes mellitus with diabetic microalbuminuria, without long-term current use of insulin ([facility]/HCC) Check blood sugars daily, notify if <70 [...] your JANETT: Dr Banda documented in this [facility]04-08-2025 Instructions* Patient Instructions* Ameena Vera NP - 05/19/2024 11:00 AM EDT Fasting labs Get xray knee Referral to Dr Darren Orona documented in this [facility]02-17-2025 Telephone encounter Note* Telephone Encounter - Jolly Castaneda MA - 03/30/2024 11:44 AM EST Pt's sensor fell off, and she needs them refilled please [facility] HospitalPpidstbpis78-61-7668 Miscellaneous Notes* Telephone Encounter - Jolly Castaneda MA - 03/30/2024 11:44 AM EST Pt's sensor fell off, and she needs them refilled please documented in this encounterChildren's Mercy HospitalQckqewphvf26-04-3990 History of Present illness Narrative* Alicia Monroy [...] Examined Right arm Examined Patient wearing nail citizen of [place], Denies dark streaks under finger nails, Denies [...] 1 year skin check documented in this encounterChildren's Mercy HospitalVfsqwxavqy50-38-5165 History of Present illness Narrative* Sonam Drake [...] long-term current use of insulin ([facility]) Currently taking Metformin Bid and Ozempic 1mg. [...] long-term current use of insulin ([facility]) - Primary Currently taking Metformin Bid and [...] (Hb A1C) docked device (Completed) Other hyperlipidemia (CMS/[facility]) Crestor 20mg Denies myalgias Continue current regimen. [...] long-term current use of insulin ([facility]) documented in this encounterChildren's Mercy HospitalEzcvxtnlad78-77-9533 Instructions* Patient Instructions* Sonam Drake NP - [...] carbohydrates, and simple sugars. documented in this encounterChildren's Mercy HospitalRptoqltvsl42-33-9677 History of Present illness Narrative* Sonam Drake [...] long-term current use of insulin ([facility]) Relevant Medications metFORMIN (Glucophage) 500 MG tablet Continuous Glucose Drug Abuse Counselor (Dexcom G7 Drug Abuse Counselor) device Continuous Glucose Sensor (Dexcom G7 Sensor) [...] without status migrainosus, not intractable ([facility]) Relevant Medications divalproex (Depakote) 500 MG EC tablet Other hyperlipidemia ([facility]) Relevant Medications rosuvastatin (Crestor) 20 MG tablet Lumbar back pain Relevant Medications diclofenac (Voltaren) 75 MG EC tablet Other Visit Diagnoses Diabetic polyneuropathy associated with type 2 diabetes mellitus ([facility]) Relevant Medications pregabalin (Lyrica) 75 MG capsule [...] Center12-19-2024 Telephone encounter Note* Telephone Encounter - Jloly Castaneda MA - 01/30/2024 10:38 AM EST GIOVANNA:12/30/2023 NOV:03/26/2024 [facility] HospitalYkpiwvhkdm07-24-0610 Miscellaneous Notes* Telephone Encounter - Jolly Castaneda MA - 01/30/2024 10:38 AM EST GIOVANNA:12/30/2023 NOV:03/26/2024 documented in this encounterChildren's Mercy HospitalNrkpxmnbuf40-15-8551 Telephone encounter Note* Telephone Encounter - Jolly Castaneda MA - 01/14/2024 8:34 AM EST GIOVANNA:12/30/2023 NOV:03/26/2023 [facility] Iiaqouvclb12-16-6380 Miscellaneous Notes* Telephone Encounter - Jolly Castaneda MA - 01/14/2024 8:34 AM EST GIOAVNNA:12/30/2023 NOV:03/26/2023 documented in this [facility]11-19-2024 History of Present illness Narrative* Sivan Banda DO - 12/31/2023 10:00 AM EST Images from the original note were not included. No chief complaint on file. Subjective SLEEP CONSULT REFERRAL: Snoring, concern for JANETT, needing sleep study - labs @ [facility]; referral received from Sonam Drake [...] was counseled on the risks of stroke, AR, and sudden with JANETT, along with the [...] to clinic: 2 months documented in this encounterChildren's Mercy HospitalOuocgwnzvs58-60-5719 History of Present illness Narrative* Sonam Drake [...] R ALBUMIN GLOBULIN RATIO 0.8 Resulting Agency [facility] DMII: Metformin Bid and Ozempic [...] JANETT. First appointment tomorrow. documented in this [facility]11-18-2024 Instructions* Patient Instructions* Sonam Drake NP - 12/30/2023 10:30 AM EST FASTING labs ordered. Nothing to eat or drink for 12 hours prior to blood draw. Water and black coffee ok. Call if you need anything! documented in this [facility]11-05-2024 Telephone encounter Note* Telephone Encounter - Jolly Castaneda MA - 12/17/2023 3:39 PM EST GIOVANNA:10/03/2023 NOV:12/30/2023 [facility] [id number] Miscellaneous Notes* Telephone Encounter - Jolly Castaneda MA - 12/17/2023 3:39 PM EST GIOVANNA:10/03/2023 NOV:12/30/2023 documented in this encounterChildren's Mercy [id number] History of Present illness Narrative* Sonam Drake NP - 10/03/2023 10:57 AM EDTAssociated Problem(s): Snoring Screening for JANETT- Referral sent to [facility] * Sonam Drake NP - 10/03/2023 10:35 [...] long-term current use of insulin ([facility]) Metformin Bid and Ozempic Most recent labs: [...] long-term current use of insulin ([facility]) Metformin Bid and Ozempic Most recent labs: [...] for JANETT- Referral sent to [facility] Other Visit Diagnoses Type 2 diabetes mellitus without complication, without long-term current use of insulin (CMS/HCC) Relevant Medications semaglutide (Ozempic, 1 MG/DOSE,) 4 MG/3ML solution pen-injector Diabetic polyneuropathy associated with type 2 diabetes mellitus (CMS/HCC) Relevant Medications pregabalin (Lyrica) 75 MG capsule documented in this encounterChildren's Mercy [id number] Instructions* Patient Instructions* Sonam Drake NP - [...] if you need anything! documented in this encounterChildren's Mercy [id number] Evaluation note* Encounter Date Diagnosis Assessment Notes Treatment Notes Treatment Clinical Notes Mar, Other secondary acute gout of le ft wrist (ICD-10 - M10.432) Mar,rthritis of carpometacarpal (CMC) joint of left thumb (ICD-10 - M18.12)We performed a cortisone injection into the left thumb CMC joint under sterile technique. The patient tolerated this well without complication. We discussed that the finger may feel numb and tingle for hours after this injection. Mar,ight wrist pain (ICD-10 - M25.531) Mar,Left hand pain (ICD-10 - M79.642) [facility] Other 12-13-2023 Evaluation note* Encounter Date Diagnosis Assessment Notes Treatment Notes Treatment Clinical Notes Jan, Right wrist pain (ICD-10 - M25.5 31) Jan,Other secondary acute gout of left wrist (ICD-10 [...] noted. Patient will f/u in 4 weeks. [facility] Other 12-08-2023 Evaluation note* Encounter Date Diagnosis Assessment Notes Treatment Notes Treatment Clinical Notes Jan, Left hand pain (ICD-10 - M79.642 ) Drink plenty fluids, get plenty of rest. Take the Medrol Dosepak as prescribed until gone. Be awareyour blood sugars may be elevated while on the Medrol Dosepak. Continue home medications as prescribed. Call your orthopedic doctor today for an appointment for further evaluation of this complaint. Take Tylenol or Motrin as needed for pain. Go to the ER for worsening symptoms or concerns I reviewed the x-ray results of the left hand x-ray that was performed at [facility] which revealed degenerative changes in the hand as well as a remote avulsion fracture of the thumb. Patientstates her family doctor is treating her for gout in her hand. Jan,History of gout (ICD-10 - Z87.39) Jan,OtherGout material was printed [facility] Other 08-09-2023 Evaluation note* Encounter Date Diagnosis Assessment Notes Treatment Notes Treatment Clinical Notes Sep, Right wrist pain (ICD-10 - M25.5 31) [facility] Other 04-27-2023 NoteCONSULTATION CONSULTATION DATE: 06/07/2022 TO: Jonathan Bean M.D. CHIEF COMPLAINT: Includes left lower back [...] our patients to inform us about any nbbt-lnb-hseimkl medications or herbal remedies/nutritional supplements/alternative remedies. 2. [...] treatment options with their primary care provider.[facility] [id number] Evaluation note * Encounter Date Diagnosis Assessment Notes Treatment Notes Treatment Clinical Notes Apr, Right wrist pain (ICD-10 - M25.5 31) Karina presents with a complaint of intermittent right wrist pain. Radiographs reviewed and discussedwith patient. The imaging appears unremarkable no abnormality or fracture present. Patient states she does have a history of gout. She is on a maintenance dose of Allopurinol. She was tried on a doseof oral steroids per her PCP, she states that did not offer much relief. I have a suspicion that the patient's pain may have been secondary to a gout attack, as she states she does not currently haveany pain and has not had the pain for about 2 months. I recommend that patient use topical VoltarenGel as needed for any pain that may occur. She is encouraged to call should her wrist flare again. We discussed future treatments such as therapy and cortisone injections if needed. We will continue to monitor. Patient voices understanding and is agreeable to treatment plan. [facility] Other 01-26-2023 NoteCONSULTATION PROCEDURE DATE: 03/08/2022 PREOPERATIVE [...] will be followed up in the clinic.[facility] [id number] NotePROCEDURE: XR KNEE LT 4V or > [...] authenticated by: PATTIE SALTER Date: 2022-02-16 11:29[facility] [id number] NoteCONSULTATION CONSULTATION DATE: 02/09/2022 HISTORY OF PRESENT [...] office today. Patient agrees with this plan.[facility] [id number] NotePROCEDURE: XR WRIST RT MIN 3 V COMPARISON: None. HISTORY: Injury of right wrist FINDINGS: BONES:No acute fracture or dislocation. Corticated bone fragment identified along the first carpometacarpal joint [degenerative in nature SOFT TISSUES:Moderate diffuse soft tissue swelling EFFUSION:None visible. OTHER: Negative. IMPRESSION: Soft tissue swelling, no acute fracture Electronically authenticated by: RYAN WANG Date: 2021-11-16 18:59[facility]09-21-2022 NoteCONSULTATION CONSULTATION DATE: 11/01/2021 HISTORY OF PRESENT [...] otherwise indicated. Patient agrees with this plan.[facility] [id number] NoteCONSULTATION PROCEDURE DATE: 11/01/2021 PRE AND POSTOPERATIVE [...] will be followed up in the clinic.[facility] [id number] NoteCONSULTATION PROCEDURE DATE: 08/09/2021 PREOPERATIVE DIAGNOSIS: Bilateral [...] will be followed up in the clinic. [facility] Signed and Approved by: CRYS PIERCE . 08/10/2021 13:37:00[facility] [id number] NoteCONSULTATION CONSULTATION DATE: 07/19/2021 HISTORY OF PRESENT [...] injections. Patient acknowledges and all questions answered. [facility] Signed and Approved by: CRYS PIERCE . 07/20/2021 10:33:00[facility]05-25-2022 NotePROCEDURE: XR FOOT RT MIN 3 VIEWS [...] Electronically authenticated by: PATTIE SALTER Date: 2021-07-05 11:11[facility]05-10-2022 NoteCONSULTATION CONSULTATION DATE: 06/20/2021 CHIEF COMPLAINT: Low [...] and has recent x-rays ordered by Dr. Bean that were reviewed in office today, where [...] and would like to proceed. CC: Jonathan Bean M.D. [facility] Signed and Approved by: DR RICARDO HOLM . 06/27/2021 10:40:00[facility]* Diagnosis Routine cervical smear Screening for malignant neoplasm of the cervix documented in this encounter [facility] Work Phone: evaluation note* Diagnosis Diabetic polyneuropathy associated with type 2 diabetes mellitus (CMS/HCC)- Primary documented in this encounter [facility] HealthcareEvaluation noteNo assessment information availableSt. Rita'S [facility] Work Phone: Evaluation note* Diagnosis Encounter [...] diabetes mellitus (CMS/HCC) documented in this encounter [facility] HealthcareEvaluation note* Diagnosis Encounter for screening [...] chronicity, unspecified site documented in this encounter [facility] HealthcareEvaluation note* Diagnosis Encounter for screening [...] long-term current use of insulin ([facility]) Diabetic polyneuropathy associated with type 2 diabetes mellitus ([facility]/HCC) Mixed urge and stress incontinence Mixed incontinence urge and stress (male)(female) Snoring Other dyspnea and respiratory abnormality Encounter for long-term (current) use of high-risk medication Encounter for long-term (current) use of other medications Type 2 diabetes mellitus with diabetic microalbuminuria, without long-term current use of insulin ([facility])- Primary Essential hypertension Unspecified essential hypertension Other hyperlipidemia (CMS/[facility]) Snoring Other dyspnea and respiratory abnormality Mixed urge and stress incontinence Mixed incontinence urge and stress (male)(female) JANETT (obstructive sleep apnea)- Primary Obstructive sleep apnea (adult) (pediatric) Hypersomnia Hypersomnia, unspecified Snoring Other dyspnea and respiratory abnormality Primary insomnia Persistent disorder of initiating or maintaining sleep Tobacco abuse Tobacco use disorder documented in this encounter [facility] HealthcareEvaluation note* Diagnosis Encounter for screening mammogram for breast cancer- Primary Encounter for screening for malignant neoplasm of colon Type 2 diabetes mellitus without complication, without long-term current use of insulin ([facility]) Upper respiratory tract infection, unspecified type URTI (acute upper respiratory infection) Acute upper respiratory infections of unspecified site Migraine with aura and without status migrainosus, not intractable (CMS/HCC)- Primary Type 2 diabetes mellitus without complication, without long-term current use of insulin ([facility]/HCC) Morbid (severe) obesity due to excess calories [...] healing, subsequent encounter Other hyperlipidemia ([facility]) Hyperuricemia Other abnormal blood chemistry Osteoporosis, unspecified osteoporosis type, unspecified pathological fracture presence (CMS/HCC) Diabetic polyneuropathy associated with type 2 diabetes mellitus (CMS/HCC) Gastroesophageal reflux disease without esophagitis Esophageal reflux Migraine with aura and without status migrainosus, not intractable ([facility]) Hospital discharge follow-up Other follow-up examination Type 2 diabetes mellitus with diabetic microalbuminuria, without long-term current use of insulin ([facility]/HCC)- Primary Other hyperlipidemia (CMS/HCC) Essential hypertension Unspecified essential hypertension Bilateral lower extremity edema Lumbar back pain- Primary Lumbago Hospital discharge follow-up Other follow-up examination Essential hypertension- Primary Unspecified essential hypertension Type 2 diabetes mellitus with diabetic microalbuminuria, without long-term current use of insulin ([facility]/HCC) Morbid (severe) obesity due to excess calories (E66.01) Other hyperlipidemia (CMS/HCC) Lumbar back pain Lumbago Type 2 diabetes mellitus without complication, without long-term current use of insulin ([facility]) Diabetic polyneuropathy associated with type 2 diabetes mellitus ([facility]/HCC) Mixed urge and stress incontinence Mixed incontinence urge and stress (male)(female) Snoring Other dyspnea and respiratory abnormality Encounter for long-term (current) use of high-risk medication Encounter for long-term (current) use of other medications Type 2 diabetes mellitus with diabetic microalbuminuria, without long-term current use of insulin ([facility])- Primary Essential hypertension Unspecified essential hypertension Other hyperlipidemia ([facility]) Snoring Other dyspnea and respiratory abnormality Mixed urge and stress incontinence Mixed incontinence urge and stress (male)(female) documented in this encounter [facility]* Diagnosis Encounter for screening mammogram for breast cancer- Primary Encounter for screening for malignant neoplasm of colon Type 2 diabetes mellitus without complication, without long-term current use of insulin ([facility]) Upper respiratory tract infection, unspecified type URTI [...] long-term current use of insulin ([facility]) Morbid (severe) obesity due to excess calories (E66.01) Other hyperlipidemia (CMS/HCC) Lumbar back pain Lumbago Type 2 diabetes mellitus without complication, without long-term current use of insulin ([facility]) Diabetic polyneuropathy associated with type 2 diabetes mellitus (CMS/[facility]) Mixed urge and stress incontinence Mixed incontinence [...] long-term current use of insulin ([facility]) Upper respiratory tract infection, unspecified type URTI (acute upper respiratory infection) Acute upper respiratory infections of unspecified site Migraine with aura and without status migrainosus, not intractable ([facility])- Primary Type 2 diabetes mellitus without complication, without long-term current use of insulin ([facility]/HCC) Morbid (severe) obesity due to excess calories [...] healing, subsequent encounter Other hyperlipidemia ([facility]) Hyperuricemia Other abnormal blood chemistry Osteoporosis, unspecified osteoporosis type, unspecified pathological fracture presence (CMS/[facility]) Diabetic polyneuropathy associated with type 2 diabetes mellitus ([facility]) Gastroesophageal reflux disease without esophagitis Esophageal reflux [...] microalbuminuria, without long-term current use of insulin (CMS/[facility])- Primary Essential hypertension Unspecified essential hypertension Other hyperlipidemia (CMS/HCC) Snoring Other dyspnea and respiratory abnormality Mixed urge and stress incontinence Mixed incontinence urge and stress (male)(female) Lumbar back pain- Primary Lumbago Type 2 diabetes mellitus with diabetic microalbuminuria, without long-term current use of insulin ([facility]/HCC) documented in this encounter [facility] HealthcareEvaluation note* Diagnosis Encounter for screening [...] long-term current use of insulin ([facility]/HCC)- Primary Essential hypertension Unspecified essential hypertension Other [...] Other hyperlipidemia (CMS/HCC) documented in this encounter [facility] HealthcareEvaluation note* Diagnosis Encounter for screening [...] with routine healing, subsequent encounter Other hyperlipidemia (CMS/[facility]) Hyperuricemia Other abnormal blood chemistry Osteoporosis, unspecified osteoporosis type, unspecified pathological fracture presence (CMS/[facility]) Diabetic polyneuropathy associated with type 2 diabetes mellitus (CMS/HCC) Gastroesophageal reflux disease without esophagitis Esophageal reflux Migraine with aura and without status migrainosus, not intractable (CMS/[facility]) Hospital discharge follow-up Other follow-up examination Type [...] long-term current use of insulin ([facility]) Diabetic polyneuropathy associated with type 2 diabetes mellitus ([facility]/HCC) Mixed urge and stress incontinence Mixed incontinence [...] fracture presence (CMS/HCC) documented in this encounter [facility] HealthcareEvaluation note* Diagnosis Encounter for screening [...] esophagitis Esophageal reflux documented in this encounter [facility] HealthcareEvaluation note* Diagnosis Encounter for screening [...] healing, subsequent encounter Other hyperlipidemia ([facility]) Hyperuricemia Other abnormal blood chemistry Osteoporosis, unspecified osteoporosis type, unspecified pathological fracture presence ([facility]) Diabetic polyneuropathy associated with type 2 diabetes mellitus ([facility]) Gastroesophageal reflux disease without esophagitis Esophageal reflux Migraine with aura and without status migrainosus, not intractable ([facility]) Hospital discharge follow-up Other follow-up examination Type 2 diabetes mellitus with diabetic microalbuminuria, without long-term current use of insulin ([facility])- Primary Other hyperlipidemia ([facility]) Essential hypertension Unspecified essential hypertension Bilateral lower extremity edema Lumbar back pain- Primary Lumbago Hospital discharge follow-up Other follow-up examination Essential hypertension- Primary Unspecified essential hypertension Type 2 diabetes mellitus with diabetic microalbuminuria, without long-term current use of insulin ([facility]) Morbid (severe) obesity due to excess calories (E66.01) Other hyperlipidemia ([facility]) Lumbar back pain Lumbago Type 2 diabetes mellitus without complication, without long-term current use of insulin ([facility]) Diabetic polyneuropathy associated with type 2 diabetes mellitus ([facility]) Mixed urge and stress incontinence Mixed incontinence urge and stress (male)(female) Snoring Other dyspnea and respiratory abnormality Encounter for long-term (current) use of high-risk medication Encounter for long-term (current) use of other medications Type 2 diabetes mellitus with diabetic microalbuminuria, without long-term current use of insulin ([facility])- Primary Essential hypertension Unspecified essential hypertension Other hyperlipidemia ([facility]) Snoring Other dyspnea and respiratory abnormality Mixed urge and stress incontinence Mixed incontinence urge and stress (male)(female) Upper respiratory infection with cough and congestion- Primary Lumbar back pain Lumbago Migraine with aura and without status migrainosus, not intractable ([facility]) Type 2 diabetes mellitus with diabetic microalbuminuria, without long-term current use of insulin ([facility]) Diabetic polyneuropathy associated with type 2 diabetes mellitus ([facility]) Other hyperlipidemia ([facility]) Type 2 diabetes mellitus with diabetic microalbuminuria, without long-term current use of insulin ([facility])- Primary Essential hypertension Unspecified essential hypertension Other hyperlipidemia (CMS/HCC) JANETT (obstructive sleep apnea) Obstructive sleep apnea (adult) (pediatric) Type 2 diabetes mellitus without complication, without long-term current use of insulin (CMS/HCC) documented in this encounter [facility] HealthcareEvaluation note* Diagnosis Encounter for screening [...] of insulin (CMS/HCC) documented in this encounter [facility] HealthcareEvaluation note* Diagnosis Encounter for screening [...] healing, subsequent encounter Other hyperlipidemia ([facility]) Hyperuricemia Other abnormal blood chemistry Osteoporosis, unspecified osteoporosis type, unspecified pathological fracture presence ([facility]) Diabetic polyneuropathy associated with type 2 diabetes mellitus ([facility]) Gastroesophageal reflux disease without esophagitis Esophageal reflux Migraine with aura and without status migrainosus, not intractable ([facility]) Hospital discharge follow-up Other follow-up examination Type 2 diabetes mellitus with diabetic microalbuminuria, without long-term current use of insulin ([facility])- Primary Other hyperlipidemia ([facility]) Essential hypertension Unspecified essential hypertension Bilateral lower extremity edema Lumbar back pain- Primary Lumbago Hospital discharge follow-up Other follow-up examination Essential hypertension- Primary Unspecified essential hypertension Type 2 diabetes mellitus with diabetic microalbuminuria, without long-term current use of insulin ([facility]) Morbid (severe) obesity due to excess calories (E66.01) Other hyperlipidemia ([facility]) Lumbar back pain Lumbago Type 2 diabetes mellitus without complication, without long-term current use of insulin ([facility]) Diabetic polyneuropathy associated with type 2 diabetes mellitus ([facility]) Mixed urge and stress incontinence Mixed incontinence urge and stress (male)(female) Snoring Other dyspnea and respiratory abnormality Encounter for long-term (current) use of high-risk medication Encounter for long-term (current) use of other medications Type 2 diabetes mellitus with diabetic microalbuminuria, without long-term current use of insulin ([facility])- Primary Essential hypertension Unspecified essential hypertension Other hyperlipidemia ([facility]) Snoring Other dyspnea and respiratory abnormality Mixed urge and stress incontinence Mixed incontinence urge and stress (male)(female) Upper respiratory infection with cough and congestion- Primary Lumbar back pain Lumbago Migraine with aura and without status migrainosus, not intractable ([facility]) Type 2 diabetes mellitus with diabetic microalbuminuria, without long-term current use of insulin ([facility]) Diabetic polyneuropathy associated with type 2 diabetes mellitus ([facility]) Other hyperlipidemia ([facility]) Type 2 diabetes mellitus with diabetic microalbuminuria, without long-term current use of insulin ([facility])- Primary Essential hypertension Unspecified essential hypertension Other hyperlipidemia (CMS/HCC) JANETT (obstructive sleep apnea) Obstructive sleep apnea (adult) (pediatric) Type 2 diabetes mellitus without complication, without long-term current use of insulin (CMS/HCC) Type 2 diabetes mellitus with diabetic microalbuminuria, without long-term current use of insulin (CMS/HCC) documented in this encounter [facility] HealthcareEvaluation note* Diagnosis Encounter for screening [...] long-term current use of insulin ([facility]/HCC) Bilateral lower extremity edema- Primary documented in this encounter [facility] HealthcareEvaluation note* Diagnosis Encounter for screening [...] type, unspecified pathological fracture presence ([facility]/HCC) Diabetic polyneuropathy associated with type 2 diabetes mellitus ([facility]) Gastroesophageal reflux disease without esophagitis Esophageal reflux Migraine with aura and without status migrainosus, not intractable ([facility]) Hospital discharge follow-up Other follow-up examination Type 2 diabetes mellitus with diabetic microalbuminuria, without long-term current use of insulin ([facility])- Primary Other hyperlipidemia Essential hypertension Unspecified essential hypertension Bilateral lower extremity edema Lumbar back pain- Primary Lumbago Hospital discharge follow-up Other follow-up examination Essential hypertension- Primary Unspecified essential hypertension Type 2 diabetes mellitus with diabetic microalbuminuria, without long-term current use of insulin ([facility]) Morbid (severe) obesity due to excess calories (E66.01) Other hyperlipidemia Lumbar back pain Lumbago Type 2 diabetes mellitus without complication, without long-term current use of insulin Diabetic polyneuropathy associated with type 2 diabetes mellitus ([facility]) Mixed urge and stress incontinence Mixed incontinence urge and stress (male)(female) Snoring Other dyspnea and respiratory abnormality Encounter for long-term (current) use of high-risk medication Encounter for long-term (current) use of other medications Type 2 diabetes mellitus with diabetic microalbuminuria, without long-term current use of insulin ([facility])- Primary Essential hypertension Unspecified essential hypertension Other hyperlipidemia Snoring Other dyspnea and respiratory abnormality Mixed urge and stress incontinence Mixed incontinence urge and stress (male)(female) Type 2 diabetes mellitus with diabetic microalbuminuria, without long-term current use of insulin ([facility])- Primary Essential hypertension Unspecified essential hypertension Other hyperlipidemia JANETT (obstructive sleep apnea) Obstructive sleep apnea (adult) (pediatric) Type 2 diabetes mellitus without complication, without long-term current use of insulin Type 2 diabetes mellitus with diabetic microalbuminuria, without long-term current use of insulin ([facility])- Primary Morbid (severe) obesity due to excess calories ([facility]) Other hyperlipidemia Body mass index (BMI) 39.0-39.9, adult JANETT (obstructive sleep apnea) Obstructive sleep apnea (adult) (pediatric) Bilateral lower extremity edema Migraine with aura and without status migrainosus, not intractable ([facility]) Cigarette nicotine dependence without complication Hypercalcemia Essential hypertension Unspecified essential hypertension Elevated blood uric acid level Lumbar back pain Lumbago Gastroesophageal reflux disease without esophagitis Esophageal reflux Chronic gout of multiple sites, unspecified cause Acute pain of right knee Diabetic polyneuropathy associated with type 2 diabetes mellitus (CMS/HCC) documented in this encounter [facility] HealthcareEvaluation note* Diagnosis Encounter for screening [...] (CMS/HCC) Hypercalcemia- Primary documented in this encounter [facility] HealthcareEvaluation note* Diagnosis Encounter for screening [...] type, unspecified pathological fracture presence ([facility]) Diabetic polyneuropathy associated with type 2 diabetes mellitus ([facility]) Gastroesophageal reflux disease without esophagitis Esophageal reflux Migraine with aura and without status migrainosus, not intractable ([facility]) Hospital discharge follow-up Other follow-up examination Type 2 diabetes mellitus with diabetic microalbuminuria, without long-term current use of insulin ([facility])- Primary Other hyperlipidemia Essential hypertension Unspecified essential hypertension Bilateral lower extremity edema Lumbar back pain- Primary [place]umbago Hospital discharge follow-up Other follow-up examination Essential hypertension- Primary Unspecified essential hypertension Type 2 diabetes mellitus with diabetic microalbuminuria, without long-term current use of insulin ([facility]) Morbid (severe) obesity due to excess calories (E66.01) Other hyperlipidemia Lumbar back pain Lumbago Type 2 diabetes mellitus without complication, without long-term current use of insulin Diabetic polyneuropathy associated with type 2 diabetes mellitus ([facility]) Mixed urge and stress incontinence Mixed incontinence urge and stress (male)(female) Snoring Other dyspnea and respiratory abnormality Encounter for long-term (current) use of high-risk medication Encounter for long-term (current) use of other medications Type 2 diabetes mellitus with diabetic microalbuminuria, without long-term current use of insulin ([facility])- Primary Essential hypertension Unspecified essential hypertension Other hyperlipidemia Snoring Other dyspnea and respiratory abnormality Mixed urge and stress incontinence Mixed incontinence urge and stress (male)(female) Type 2 diabetes mellitus with diabetic microalbuminuria, without long-term current use of insulin ([facility])- Primary Essential hypertension Unspecified essential hypertension Other [...] long-term current use of insulin ([facility])- Primary Morbid (severe) obesity due to excess [...] diabetes mellitus (CMS/HCC) documented in this encounter [facility] HealthcareEvaluation note* Diagnosis Encounter for screening [...] parathyroid hormone (PTH) documented in this encounter [facility] HealthcareEvaluation note* Diagnosis Encounter for screening [...] type, unspecified pathological fracture presence ([facility]) Diabetic polyneuropathy associated with type 2 diabetes mellitus ([facility]) Gastroesophageal reflux disease without esophagitis Esophageal reflux Migraine with aura and without status migrainosus, not intractable ([facility]) Hospital discharge follow-up Other follow-up examination Type 2 diabetes mellitus with diabetic microalbuminuria, without long-term current use of insulin ([facility])- Primary Other hyperlipidemia Essential hypertension Unspecified essential hypertension Bilateral lower extremity edema Lumbar back pain- Primary [place]umbago Hospital discharge follow-up Other follow-up examination Essential hypertension- Primary Unspecified essential hypertension Type 2 diabetes mellitus with diabetic microalbuminuria, without long-term current use of insulin ([facility]) Morbid (severe) obesity due to excess calories (E66.01) Other hyperlipidemia Lumbar back pain Lumbago Type 2 diabetes mellitus without complication, without long-term current use of insulin Diabetic polyneuropathy associated with type 2 diabetes mellitus ([facility]) Mixed urge and stress incontinence Mixed incontinence urge and stress (male)(female) Snoring Other dyspnea and respiratory abnormality Encounter for long-term (current) use of high-risk medication Encounter for long-term (current) use of other medications Type 2 diabetes mellitus with diabetic microalbuminuria, without long-term current use of insulin ([facility])- Primary Essential hypertension Unspecified essential hypertension Other hyperlipidemia Snoring Other dyspnea and respiratory abnormality Mixed urge and stress incontinence Mixed incontinence urge and stress (male)(female) Type 2 diabetes mellitus with diabetic microalbuminuria, without long-term current use of insulin ([facility])- Primary Essential hypertension Unspecified essential hypertension Other [...] other sinus- Primary documented in this encounter [facility] HealthcareEvaluation note* Diagnosis Encounter for screening [...] diabetes mellitus (CMS/HCC) documented in this encounter [facility] HealthcareEvaluation note* Diagnosis Encounter for screening [...] type, unspecified pathological fracture presence ([facility]) Diabetic polyneuropathy associated with type 2 diabetes mellitus ([facility]) Gastroesophageal reflux disease without esophagitis Esophageal reflux Migraine with aura and without status migrainosus, not intractable ([facility]) Hospital discharge follow-up Other follow-up examination Type 2 diabetes mellitus with diabetic microalbuminuria, without long-term current use of insulin ([facility])- Primary Other hyperlipidemia Essential hypertension Unspecified essential hypertension Bilateral lower extremity edema Lumbar back pain- Primary Lumbago Hospital discharge follow-up Other follow-up examination Essential hypertension- Primary Unspecified essential hypertension Type 2 diabetes mellitus with diabetic microalbuminuria, without long-term current use of insulin ([facility]) Morbid (severe) obesity due to excess calories (E66.01) Other hyperlipidemia Lumbar back pain Lumbago Type 2 diabetes mellitus without complication, without long-term current use of insulin Diabetic polyneuropathy associated with type 2 diabetes mellitus ([facility]) Mixed urge and stress incontinence Mixed incontinence urge and stress (male)(female) Snoring Other dyspnea and respiratory abnormality Encounter for long-term (current) use of high-risk medication Encounter for long-term (current) use of other medications Type 2 diabetes mellitus with diabetic microalbuminuria, without long-term current use of insulin ([facility])- Primary Essential hypertension Unspecified essential hypertension Other hyperlipidemia Snoring Other dyspnea and respiratory abnormality Mixed urge and stress incontinence Mixed incontinence urge and stress (male)(female) Type 2 diabetes mellitus with diabetic microalbuminuria, without long-term current use of insulin ([facility])- Primary Essential hypertension Unspecified essential hypertension Other [...] of insulin (CMS/HCC) documented in this encounter [facility] HealthcareEvaluation note* Diagnosis Encounter for screening [...] hormone (PTH)- Primary documented in this encounter [facility] HealthcareEvaluation note* Diagnosis Encounter for screening [...] polyneuropathy associated with type 2 diabetes mellitus ([facility]) Gastroesophageal reflux disease without esophagitis Esophageal reflux Migraine with aura and without status migrainosus, not intractable Hospital discharge follow-up Other follow-up examination Type 2 diabetes mellitus with diabetic microalbuminuria, without long-term current use of insulin ([facility])- Primary Other hyperlipidemia Essential hypertension Unspecified essential hypertension Bilateral lower extremity edema Lumbar back pain- Primary Lumbago Hospital discharge follow-up Other follow-up examination Essential hypertension- Primary Unspecified essential hypertension Type 2 diabetes mellitus with diabetic microalbuminuria, without long-term current use of insulin ([facility]) Morbid (severe) obesity due to excess calories (E66.01) Other hyperlipidemia Lumbar back pain Lumbago Type 2 diabetes mellitus without complication, without long-term current use of insulin ([facility]) Diabetic polyneuropathy associated with type 2 diabetes mellitus ([facility]) Mixed urge and stress incontinence Mixed incontinence urge and stress (male)(female) Snoring Other dyspnea and respiratory abnormality Encounter for long-term (current) use of high-risk medication Encounter for long-term (current) use of other medications Type 2 diabetes mellitus with diabetic microalbuminuria, without long-term current use of insulin ([facility])- Primary Essential hypertension Unspecified essential hypertension Other [...] obesity due to excess calories ([facility]-HCC) Other hyperlipidemia Body mass index (BMI) 39.0-39.9, [...] back pain Lumbago documented in this encounter [facility] HealthcareEvaluation note* Diagnosis Encounter for screening [...] complication, without long-term current use of insulin ([facility]) Type 2 diabetes mellitus with diabetic microalbuminuria, without long-term current use of insulin (HCC)- Primary Morbid (severe) obesity due to excess calories ([facility]) Other hyperlipidemia Body mass index (BMI) 39.0-39.9, [...] Vitamin D deficiency documented in this encounter [facility] HealthcareEvaluation note* Diagnosis Encounter for screening mammogram for breast cancer- Primary Encounter for screening for malignant neoplasm of colon Type 2 diabetes mellitus without complication, without long-term current use of insulin ([facility]) Upper respiratory tract infection, unspecified type URTI [...] microalbuminuria, without long-term current use of insulin ([facility])- Primary Other hyperlipidemia Essential hypertension Unspecified essential hypertension Bilateral lower extremity edema Lumbar back pain- Primary Lumbago Hospital discharge follow-up Other follow-up examination Essential hypertension- Primary Unspecified essential hypertension Type 2 diabetes mellitus with diabetic microalbuminuria, without long-term current use of insulin ([facility]) Morbid (severe) obesity due to excess calories (E66.01) Other hyperlipidemia Lumbar back pain Lumbago Type 2 diabetes mellitus without complication, without long-term current use of insulin ([facility]) Diabetic polyneuropathy associated with type 2 diabetes mellitus (HCC) Mixed urge and stress incontinence Mixed incontinence urge and stress (male)(female) Snoring Other dyspnea and respiratory abnormality Encounter for long-term (current) use of high-risk medication Encounter for long-term (current) use of other medications Type 2 diabetes mellitus with diabetic microalbuminuria, without long-term current use of insulin ([facility])- Primary Essential hypertension Unspecified essential hypertension Other hyperlipidemia Snoring Other dyspnea and respiratory abnormality Mixed urge and stress incontinence Mixed incontinence urge and stress (male)(female) Type 2 diabetes mellitus with diabetic microalbuminuria, without long-term current use of insulin ([facility])- Primary Essential hypertension Unspecified essential hypertension Other hyperlipidemia JANETT (obstructive sleep apnea) Obstructive sleep apnea (adult) (pediatric) Type 2 diabetes mellitus without complication, without long-term current use of insulin (HCC) Type 2 diabetes mellitus with diabetic microalbuminuria, without long-term current use of insulin (HCC)- Primary Morbid (severe) obesity due to excess calories ([facility]-HCC) Other hyperlipidemia Body mass index (BMI) 39.0-39.9, [...] back pain Lumbago documented in this encounter [facility] HealthcareEvaluation note* Diagnosis Encounter for screening mammogram for breast cancer- Primary Encounter for screening for malignant neoplasm of colon Type 2 diabetes mellitus without complication, without long-term current use of insulin ([facility]) Upper respiratory tract infection, unspecified type URTI (acute upper respiratory infection) Acute upper respiratory infections of unspecified site Migraine with aura and without status migrainosus, not intractable- Primary Type 2 diabetes mellitus without complication, without long-term current use of insulin ([facility]) Morbid (severe) obesity due to excess calories [...] microalbuminuria, without long-term current use of insulin ([facility]) Morbid (severe) obesity due to excess calories [...] microalbuminuria, without long-term current use of insulin ([facility])- Primary Essential hypertension Unspecified essential hypertension Other hyperlipidemia Snoring Other dyspnea and respiratory abnormality Mixed urge and stress incontinence Mixed incontinence urge and stress (male)(female) Type 2 diabetes mellitus with diabetic microalbuminuria, without long-term current use of insulin ([facility])- Primary Essential hypertension Unspecified essential hypertension Other hyperlipidemia JANETT (obstructive sleep apnea) Obstructive sleep apnea (adult) (pediatric) Type 2 diabetes mellitus without complication, without long-term current use of insulin ([facility]) Type 2 diabetes mellitus with diabetic microalbuminuria, without long-term current use of insulin ([facility])- Primary Morbid (severe) obesity due to excess calories ([facility]) Other hyperlipidemia Body mass index (BMI) 39.0-39.9, [...] unspecified cause- Primary documented in this encounter [facility] HealthcareEvaluation note* Diagnosis Encounter for screening mammogram for breast cancer- Primary Encounter for screening for malignant neoplasm of colon Type 2 diabetes mellitus without complication, without long-term current use of insulin ([facility]) Upper respiratory tract infection, unspecified type URTI [...] microalbuminuria, without long-term current use of insulin ([facility])- Primary Essential hypertension Unspecified essential hypertension Other hyperlipidemia JANETT (obstructive sleep apnea) Obstructive sleep apnea (adult) (pediatric) Type 2 diabetes mellitus without complication, without long-term current use of insulin (HCC) Type 2 diabetes mellitus with diabetic microalbuminuria, without long-term current use of insulin (HCC)- Primary Morbid (severe) obesity due to excess calories ([facility]-HCC) Other hyperlipidemia Body mass index (BMI) 39.0-39.9, [...] microalbuminuria, without long-term current use of insulin ([facility]) documented in this encounter [facility] HealthcareEvaluation note* Diagnosis Encounter for screening mammogram for breast cancer- Primary Encounter for screening for malignant neoplasm of colon Type 2 diabetes mellitus without complication, without long-term current use of insulin ([facility]) Upper respiratory tract infection, unspecified type URTI [...] microalbuminuria, without long-term current use of insulin ([facility]) Morbid (severe) obesity due to excess calories (E66.01) Other hyperlipidemia Lumbar back pain Lumbago Type 2 diabetes mellitus without complication, without long-term current use of insulin ([facility]) Diabetic polyneuropathy associated with type 2 diabetes mellitus ([facility]) Mixed urge and stress incontinence Mixed incontinence urge and stress (male)(female) Snoring Other dyspnea and respiratory abnormality Encounter for long-term (current) use of high-risk medication Encounter for long-term (current) use of other medications Type 2 diabetes mellitus with diabetic microalbuminuria, without long-term current use of insulin ([facility])- Primary Essential hypertension Unspecified essential hypertension Other hyperlipidemia Snoring Other dyspnea and respiratory abnormality Mixed urge and stress incontinence Mixed incontinence urge and stress (male)(female) Type 2 diabetes mellitus with diabetic microalbuminuria, without long-term current use of insulin ([facility])- Primary Essential hypertension Unspecified essential hypertension Other hyperlipidemia JANETT (obstructive sleep apnea) Obstructive sleep apnea (adult) (pediatric) Type 2 diabetes mellitus without complication, without long-term current use of insulin ([facility]) Type 2 diabetes mellitus with diabetic microalbuminuria, without long-term current use of insulin ([facility])- Primary Morbid (severe) obesity due to excess calories ([facility]) Other hyperlipidemia Body mass index (BMI) 39.0-39.9, [...] microalbuminuria, without long-term current use of insulin ([facility])- Primary Essential hypertension Unspecified essential hypertension Morbid (severe) obesity due to excess calories (E66.01) Cigarette nicotine dependence without complication Chronic gout of multiple sites, unspecified cause Gastroesophageal reflux disease without esophagitis Esophageal reflux Bilateral lower extremity edema documented in this encounter [facility] HealthcareEvaluation note* Diagnosis Encounter for screening [...] microalbuminuria, without long-term current use of insulin ([facility])- Primary Essential hypertension Unspecified essential hypertension Other hyperlipidemia Snoring Other dyspnea and respiratory abnormality Mixed urge and stress incontinence Mixed incontinence urge and stress (male)(female) Type 2 diabetes mellitus with diabetic microalbuminuria, without long-term current use of insulin ([facility])- Primary Essential hypertension Unspecified essential hypertension Other hyperlipidemia JANETT (obstructive sleep apnea) Obstructive sleep apnea (adult) (pediatric) Type 2 diabetes mellitus without complication, without long-term current use of insulin ([facility]) Type 2 diabetes mellitus with diabetic microalbuminuria, without long-term current use of insulin ([facility])- Primary Morbid (severe) obesity due to excess calories ([facility]) Other hyperlipidemia Body mass index (BMI) 39.0-39.9, [...] microalbuminuria, without long-term current use of insulin ([facility])- Primary Essential hypertension Unspecified essential hypertension Morbid (severe) obesity due to excess calories (E66.01) Cigarette nicotine dependence without complication Chronic gout of multiple sites, unspecified cause Gastroesophageal reflux disease without esophagitis Esophageal reflux Bilateral lower extremity edema Bilateral lower extremity edema Migraine with aura and without status migrainosus, not intractable Type 2 diabetes mellitus with diabetic microalbuminuria, without long-term current use of insulin ([facility]) Osteoporosis, unspecified osteoporosis type, unspecified pathological fracture presence documented in this encounter [facility] HealthcareEvaluation note* Diagnosis Encounter for screening mammogram for breast cancer- Primary Encounter for screening for malignant neoplasm of colon Type 2 diabetes mellitus without complication, without long-term current use of insulin ([facility]) Upper respiratory tract infection, unspecified type URTI (acute upper respiratory infection) Acute upper respiratory infections of unspecified site Migraine with aura and without status migrainosus, not intractable- Primary Type 2 diabetes mellitus without complication, without long-term current use of insulin ([facility]) Morbid (severe) obesity due to excess calories (E66.01) Body mass index [BMI] 40.0-44.9, adult (Z68.41) Essential hypertension Unspecified essential hypertension Essential hypertension- Primary Unspecified essential hypertension Type 2 diabetes mellitus without complication, without long-term current use of insulin ([facility]) Back spasm Other symptoms referable to back Closed fracture of proximal end of left fibula with routine healing, unspecified fracture morphology, subsequent encounter Closed nondisplaced fracture of second metatarsal bone of left foot with routine healing, subsequent encounter Other hyperlipidemia Hyperuricemia Other abnormal blood chemistry Osteoporosis, unspecified osteoporosis type, unspecified pathological fracture presence Diabetic polyneuropathy associated with type 2 diabetes mellitus ([facility]) Gastroesophageal reflux disease without esophagitis Esophageal reflux Migraine with aura and without status migrainosus, not intractable Hospital discharge follow-up Other follow-up examination Type 2 diabetes mellitus with diabetic microalbuminuria, without long-term current use of insulin ([facility])- Primary Other hyperlipidemia Essential hypertension Unspecified essential hypertension Bilateral lower extremity edema Lumbar back pain- Primary Lumbago Hospital discharge follow-up Other follow-up examination Essential hypertension- Primary Unspecified essential hypertension Type 2 diabetes mellitus with diabetic microalbuminuria, without long-term current use of insulin ([facility]) Morbid (severe) obesity due to excess calories (E66.01) Other hyperlipidemia Lumbar back pain Lumbago Type 2 diabetes mellitus without complication, without long-term current use of insulin ([facility]) Diabetic polyneuropathy associated with type 2 diabetes mellitus ([facility]) Mixed urge and stress incontinence Mixed incontinence urge and stress (male)(female) Snoring Other dyspnea and respiratory abnormality Encounter for long-term (current) use of high-risk medication Encounter for long-term (current) use of other medications Type 2 diabetes mellitus with diabetic microalbuminuria, without long-term current use of insulin ([facility])- Primary Essential hypertension Unspecified essential hypertension Other hyperlipidemia Snoring Other dyspnea and respiratory abnormality Mixed urge and stress incontinence Mixed incontinence urge and stress (male)(female) Type 2 diabetes mellitus with diabetic microalbuminuria, without long-term current use of insulin ([facility])- Primary Essential hypertension Unspecified essential hypertension Other hyperlipidemia JANETT (obstructive sleep apnea) Obstructive sleep apnea (adult) (pediatric) Type 2 diabetes mellitus without complication, without long-term current use of insulin ([facility]) Type 2 diabetes mellitus with diabetic microalbuminuria, without long-term current use of insulin ([facility])- Primary Morbid (severe) obesity due to excess calories ([facility]) Other hyperlipidemia Body mass index (BMI) 39.0-39.9, [...] diabetes mellitus (HCC) documented in this encounter [facility] HealthcareEvaluation note* Diagnosis Encounter for screening [...] microalbuminuria, without long-term current use of insulin ([facility]) Morbid (severe) obesity due to excess calories [...] microalbuminuria, without long-term current use of insulin ([facility])- Primary Essential hypertension Unspecified essential hypertension Other hyperlipidemia Snoring Other dyspnea and respiratory abnormality Mixed urge and stress incontinence Mixed incontinence urge and stress (male)(female) Type 2 diabetes mellitus with diabetic microalbuminuria, without long-term current use of insulin ([facility])- Primary Essential hypertension Unspecified essential hypertension Other hyperlipidemia JANETT (obstructive sleep apnea) Obstructive sleep apnea (adult) (pediatric) Type 2 diabetes mellitus without complication, without long-term current use of insulin ([facility]) Type 2 diabetes mellitus with diabetic microalbuminuria, without long-term current use of insulin ([facility])- Primary Morbid (severe) obesity due to excess calories ([facility]) Other hyperlipidemia Body mass index (BMI) 39.0-39.9, [...] microalbuminuria, without long-term current use of insulin ([facility])- Primary Essential hypertension Unspecified essential hypertension Morbid (severe) obesity due to excess calories (E66.01) Cigarette nicotine dependence without complication Chronic gout of multiple sites, unspecified cause Gastroesophageal reflux disease without esophagitis Esophageal reflux Bilateral lower extremity edema Lumbar back pain Lumbago documented in this encounter [facility] HealthcareEvaluation note* Diagnosis Encounter for screening [...] microalbuminuria, without long-term current use of insulin ([facility])- Primary Essential hypertension Unspecified essential hypertension Other [...] obesity due to excess calories ([facility]) Other hyperlipidemia Body mass index (BMI) 39.0-39.9, [...] microalbuminuria, without long-term current use of insulin ([facility])- Primary Essential hypertension Unspecified essential hypertension Morbid (severe) obesity due to excess calories (E66.01) Cigarette nicotine dependence without complication Chronic gout of multiple sites, unspecified cause Gastroesophageal reflux disease without esophagitis Esophageal reflux Bilateral lower extremity edema Other hyperlipidemia documented in this encounter [facility] HealthcareEvaluation note* Diagnosis Encounter for screening mammogram for breast cancer- Primary Encounter for screening for malignant neoplasm of colon Type 2 diabetes mellitus without complication, without long-term current use of insulin ([facility]) Upper respiratory tract infection, unspecified type URTI (acute upper respiratory infection) Acute upper respiratory infections of unspecified site Migraine with aura and without status migrainosus, not intractable- Primary Type 2 diabetes mellitus without complication, without long-term current use of insulin ([facility]) Morbid (severe) obesity due to excess calories (E66.01) Body mass index [BMI] 40.0-44.9, adult (Z68.41) Essential hypertension Unspecified essential hypertension Essential hypertension- Primary Unspecified essential hypertension Type 2 diabetes mellitus without complication, without long-term current use of insulin ([facility]) Back spasm Other symptoms referable to back [...] microalbuminuria, without long-term current use of insulin ([facility])- Primary Other hyperlipidemia Essential hypertension Unspecified essential hypertension Bilateral lower extremity edema Lumbar back pain- Primary Lumbago Hospital discharge follow-up Other follow-up examination Essential hypertension- Primary Unspecified essential hypertension Type 2 diabetes mellitus with diabetic microalbuminuria, without long-term current use of insulin ([facility]) Morbid (severe) obesity due to excess calories (E66.01) Other hyperlipidemia Lumbar back pain Lumbago Type 2 diabetes mellitus without complication, without long-term current use of insulin ([facility]) Diabetic polyneuropathy associated with type 2 diabetes mellitus ([facility]) Mixed urge and stress incontinence Mixed incontinence urge and stress (male)(female) Snoring Other dyspnea and respiratory abnormality Encounter for long-term (current) use of high-risk medication Encounter for long-term (current) use of other medications Type 2 diabetes mellitus with diabetic microalbuminuria, without long-term current use of insulin ([facility])- Primary Essential hypertension Unspecified essential hypertension Other hyperlipidemia Snoring Other dyspnea and respiratory abnormality Mixed urge and stress incontinence Mixed incontinence urge and stress (male)(female) Type 2 diabetes mellitus with diabetic microalbuminuria, without long-term current use of insulin ([facility])- Primary Essential hypertension Unspecified essential hypertension Other hyperlipidemia JANETT (obstructive sleep apnea) Obstructive sleep apnea (adult) (pediatric) Type 2 diabetes mellitus without complication, without long-term current use of insulin ([facility]) Type 2 diabetes mellitus with diabetic microalbuminuria, without long-term current use of insulin ([facility])- Primary Morbid (severe) obesity due to excess calories ([facility]) Other hyperlipidemia Body mass index (BMI) 39.0-39.9, [...] History GERD (gastroesophageal reflux di sease) Medical HistoryMigraine headacheMedical HistoryArthritisMedical HistoryEdema of both legsMedical HistoryDiabetes mellitus, type 2Medical HistoryChronic back painSurgical HistoryablasionSurgical Historyback surgerySurgical History hysterectomySurgical Historytubal ligationHospitalization Historysee above MiName Other Reason for referral (narrative)* Consultation (Routine) - Pending ReviewSpecialtyDiagnoses / ProceduresReferred By Contact Referred To ContactNeurology Diagnoses Snoring Procedures HI OFFICE/OUTPATIENT NEW HIGH MDM 60 MINUTES Sonam Drake NP [address] [place] [address] Sivan Banda DO [address] [place] [address] Referral IDStatusReasonStart DateExpiration DateVisits RequestedVisits [id number] Review Specialty Services Required / Scheduling Instructions Please include OV note from today * Consultation (Routine) - Pending ReviewSpecialtyDiagnoses / ProceduresReferred By ContactReferred To ContactUrology Diagnoses Mixed urge and stress incontinence Procedures HI OFFICE/OUTPATIENT NEW HIGH MDM 60 MINUTES Sonam Drake NP [address] [place] [address] Skinny Villafuerte MD [address] [place] [address] Referral IDStatusReasonStart DateExpiration DateVisits RequestedVisits [id number] Review Specialty Services Required / CRIS Simms for referral (narrative)No reason for referral information availableSt. Rita'S Hospital Work Phone: Summary Purpose Family History Relationship Condition Age at Onset Recorded Date/T samreen Not Specified Heart disease Unknown Diabetes mellitusUnknown Relationship Condition Age at Onset Recorded Date/T samreen mother Heart disease Unknown Diabetes mellitusUnknown Advance Directives Advance Directive Response Recorded Date/ [...] pain, left November 23, 2024 1 :05pm Chief Complaint Admit Date Hospital Follow Up October 19, 2024 11:32am 3M November 23, 2024 1 :05pm OP SP RT KNEE PAIN December 09, 2024 1 1:33am Reason for Visit Admit Date Back spasm [...] 2024 1:05pm Nicotine dependence with current use Nov 1:05pm Type 2 diabetes mellitus wit h diabetic microalbuminuria, without long-term November 23, 2024 1:05pm Wrist pain, left November 23, 2024 1 :05pm Primary osteoarthritis of right knee Oct gege 2024 11:33am Additional Source Comments Care Teams (unrecognized sec tion and content) Team MemberRelationshipSpecialtyStart DateEnd Date Sr Jonathan Bean, [address] [place] [address] PCP - GeneralFamily Medicine08/30/21Team MemberRelationshipSpecialtyStart DateEnd Date Shaikh Connelly MD PCP - GeneralInternal Prvoenwc87/1/23 Team Status: Active Member Role Status Dates NON STAFF Primary Care Provider Active Team Status: Inactive Member Role Status Dates Ana Luisa Curtis MD Attending Provider Active Start: April 30, 2023 End: April 30, 2023NON STAFFPrimary Care ProviderActiveStart: April 30, 2023 End: April 30, 2023Team MemberRelationshipSpecialtyStart DateEnd Date Jose Chandler MD [address] [place] [address] PCP - GeneralFami Mfpktirg73/31/24 Sonam Drake NP [address] [place] [address] Nurse Pract[facility]er[facility]09/24/23Team MemberRelationshipSpecialtyStart DateEnd Date Jose Chandler MD [address] [place] [address] PCP - GeneralSouthern [facility] Center12/12/23 Sonam Drake, RONALDO [address] [place] [address] Nurse PractitionerSouthern [facility] Center09/24/23Team MemberRelationshipSpecialtyStart DateEnd Date Jose Chandler MD [address] [place] [address] PCP - Generalmi Qophgurr96/31/24 Sonam Drake, RONALDO [address] [place] [address] Nurse PractitionerSouthern [facility]09/24/23Team MemberRelationshipSpecialtyStart DateEnd Date Jose Chandler MD [address] [place] [address] [facility] - [facility] Nmzvqlnp86/31/24 Sonam Drake NP [address] [place] [address] Nurse PractitionerSouthern [facility]09/24/23Team MemberRelationshipSpecialtyStart DateEnd Date Jose Chandler MD [address] [place] [address] PCP - [facility]12/12/23 Sonam Drake NP [address] [place] [address] Nurse PractitionerSouthern [facility]09/24/23Team MemberRelationshipSpecialtyStart DateEnd Date Jose Chandler MD [address] [place] [address] PCP - [facility]12/12/23 Sonam Drake NP [address] [place] [address] Nurse Pract[facility]er[facility]09/24/23Team MemberRelationshipSpecialtyStart DateEnd Date Jose Chadnler MD [address] [place] [address] PCP - [facility]09/24/23 Sonam Drake NP [address] [place] [address] Nurse Pract[facility]er[facility]09/24/23Team MemberRelationshipSpecialtyStart DateEnd Date Jose Chandler MD [address] [place] [address] PCP - Generalmi Medicine09/24/23 Sonam Drake NP [address] [place] [address] Nurse Pract[facility]erSouthern [facility]09/24/23Team MemberRelationshipSpecialtyStart DateEnd Date Jose Chandler MD [address] [place] [address] PCP - [facility]Southern [facility]09/24/23 Sonam Drake, RONALDO [address] [place] [address] Nurse Practitioner[facility]09/24/23Team MemberRelationshipSpecialtyStart DateEnd Date Jose Chandler MD [address] [place] [address] PCP - [facility]Southern [facility]09/24/23 Sonam Drake, RONALDO [address] [place] [address] Nurse Pract[facility]er[facility]09/24/23Team MemberRelationshipSpecialtyStart DateEnd Date Jose Chandler MD [address] [place] [address] [facility] - [facility] Tbsxydnw92/31/24 Sonam Drake NP [address] [place] [address] Nurse Pract[facility]er[facility]09/24/23Team MemberRelationshipSpecialtyStart DateEnd Date Jose Chandler MD [address] [place] [address] PCP - [facility]12/12/23 Sonam Drake NP [address] [place] [address] Nurse Pract[facility]er[facility]09/24/23Team MemberRelationshipSpecialtyStart DateEnd Date Jose Chandler MD [address] [place] [address] PCP - [facility]12/12/23 Sonam Drake NP [address] [place] [address] Nurse Pract[facility]er[facility]09/24/23Team MemberRelationshipSpecialtyStart DateEnd Date Jose Chandler MD [address] [place] [address] PCP - [facility]12/12/23 Sonam Drake NP [address] [place] [address] Nurse Pract[facility]er[facility]09/24/23Team MemberRelationshipSpecialtyStart DateEnd Date Jose Chandler MD [address] [place] [address] PCP - Generalmi Pxvtmazp53/31/24 Sonam Drake NP [address] [place] [address] Nurse Pract[facility]er[facility]09/24/23Team MemberRelationshipSpecialtyStart DateEnd Date Jose Chandler MD [address] [place] [address] [facility] - [facility] Niqozgjn86/31/24 Sonam Drake NP [address] [place] [address] Nurse Pract[facility]erSouthern [facility]09/24/23Team MemberRelationshipSpecialtyStart DateEnd Date Jose Chandler MD [address] [place] [address] PCP - Generalmi Szakfopi62/31/24 Sonam Drake, RONALDO [address] [place] [address] Nurse Pract[facility]er[facility]09/24/23Team MemberRelationshipSpecialtyStart DateEnd Date Jose Chandler MD [address] [place] [address] [facility] - [facility] Kqsbdqqj86/31/24 Sonam Drake NP [address] [place] [address] Nurse Pract[facility]erSouthern [facility]09/24/23Team MemberRelationshipSpecialtyStart DateEnd Date Jose Chandler MD [address] [place] [address] PCP - Generalmi Ehjeqphf76/31/24 Sonam Drake NP [address] [place] [address] Nurse Pract[facility]erSouthern [facility]09/24/23Team MemberRelationshipSpecialtyStart DateEnd Date Jose Chandler MD [address] [place] [address] [facility] - [facility] Iykogjxo91/31/24 Sonam Drake NP [address] [place] [address] Nurse Pract[facility]erSouthern [facility]09/24/23Team MemberRelationshipSpecialtyStart DateEnd Date Jose Chandler MD [address] [place] [address] [facility] - [facility] Aybpvwpp89/31/24 Sonam Drake NP Nurse PractitionerFaEm[facility]09/24/23 Za Wilkerson NP [address] [facility] [address] [place] [address] Nurse PractitionerNeurology04/21/24 Sivan Banda DO [address] [place] [address] Referring PhysicianNeurology04/21/24Team MemberRelationshipSpecialtyStart DateEnd Date Jose Chandler MD [address] [place] [address] PCP - GeneralFamily Gwewpnct61/31/24 Sonam Drake NP Nurse PractitionerFamily Medicine09/24/23 Za Wilkerson NP [address] [place], [place] Nurse PractitionerNeurology04/21/24 Sivan Banda DO [address] [place], [place] [address] Referring PhysicianNeurology04/21/24Team MemberRelationshipSpecialtyStart DateEnd Date Jose Chandler MD [address] [address] PCP - GeneralFamily Wlawdgpx96/31/24 Sonam Drake NP Nurse PractitionerFamily Medicine09/24/23 Za Wilkerson NP [address] [place], [place] Nurse PractitionerNeurology04/21/24 Sivan Banda DO [address] [place] [address] Referring PhysicianNeurology04/21/24Team MemberRelationshipSpecialtyStart DateEnd Date Jose Chandler MD [address] [place] [address] PCP - GeneralFamily Pjiobnce41/31/24 Sonam Drake, RONALDO Nurse PractitionerFamily Medicine09/24/23 Za Wilkerson NP [address] [place], [place] Nurse PractitionerNeurology04/21/24 Sivan Banda DO [address] [place] [address] Referring PhysicianNeurology04/21/24Team MemberRelationshipSpecialtyStart DateEnd Date Jose Chandler MD [address] [place] [address] PCP - GeneralW[facility]ly Health Centerly Oyipbybj31/31/24 Sonam Drake NP Nurse PractitionerFaokly Medicine09/24/23 Za Wilkerson NP [address] [place], [place] Nurse PractitionerNeurology04/21/24 Sivan Banda DO [address] [place] [address] Referring PhysicianNeurology04/21/24Team MemberRelationshipSpecialtyStart DateEnd Date Jose Chandler MD [address] [place] [address] PCP - GeneralFamily Pernlnau75/31/24 Sonam Drake NP Nurse PractitionerFamily Medicine09/24/23 Za Wilkerson, RONALDO [address] [place], [place] Nurse PractitionerNeurology04/21/24 Sivan Badna DO [address] [place], [place] [address] Referring PhysicianNeurology04/21/24Team MemberRelationshipSpecialtyStart DateEnd Date Jose Chandler MD [address] [place] [address] PCP - GeneralFamily Teobzcsy07/31/24 Sonam Drake NP Nurse PractitionerFaokly Medicine09/24/23 Za Wilkerson NP [address] [place] Nurse PractitionerNeurology04/21/24 Sivan Banda DO [address] [place], [place] [address] Referring PhysicianNeurology04/21/24 Team Status: Active Member Role Status Dates Ameena Vera Primary Care Provider Active Team Status: Inactive Member Role Status Dates NON STAFF Primary Care Provider Active Start: May 28, 2024 End: May 28, 2024Lui Banks II, MDAttending ProviderActiveStart: May 28, 2024 End: May 28, 2024 Team Status: Inactive Member Role Status Dates Lui Banks II, MD Attending Provider Active Start: May 28, 2024 End: May 28, 2024Ameena Font[facility]otM[facility] ProviderActiveStart: May 28, 2024 End: May 28, 2024Team MemberRelationshipSpecialtyStart DateEnd Date Jose Chandler MD [address] [place] [address] [facility] - [facility] Bbbqdslf68/31/24 Sonam Drake NP Nurse Pract[facility]erRe[facility] Medicine09/24/23 Za Wilkerson NP [address] [place], [place] Nurse PractitionerNeurology04/21/24 Sivan Banda DO [address] [place], [place] [address] Referring PhysicianNeurology04/21/24Team MemberRelationshipSpecialtyStart DateEnd Date Jose Chandler MD [address] [place] [address] PCP - [facility] Oxgjficz22/31/24 Sonam Drake NP Nurse PractitionerFaokly Medicine09/24/23 Za Wilkerson NP [address] [place], [place] Nurse PractitionerNeurology04/21/24 Sivan Banda DO [address] [place], [place] [address] Referring PhysicianNeurology04/21/24Team MemberRelationshipSpecialtyStart DateEnd Date Jose Chandler MD [address] [place] [address] PCP - GeneralFamily Vmepytwk48/31/24 Sonam Drake NP Nurse PractitionerFamily Medicine09/24/23 Za Wilkesron NP [address] [place] Nurse PractitionerNeurology04/21/24 Sivan Banda DO [address] [place] [address] Referring PhysicianNeurology04/21/24Team MemberRelationshipSpecialtyStart DateEnd Date Jose Chandler MD [address] [place] [address] PCP - GeneralWaverly [facility] Centerly Lkzwsjlj30/31/24 Sonam Drake NP Nurse PractitionerFamily Medicine09/24/23 Za Wilkerson NP [address] [place] [address] Nurse PractitionerNeurology04/21/24 Sivan Banda DO [address] [place] [address] Referring PhysicianNeurology04/21/24Team MemberRelationshipSpecialtyStart DateEnd Date Jose Chandler MD [address] [place] [address] PCP - GeneralFamily Wacdkcrj55/31/24 Sonam Drake NP Nurse PractitionerFamily Medicine09/24/23 Za Wilkerson, RONALDO [address] [place] [address] Nurse PractitionerNeurology04/21/24 Sivan Banda DO [address] [place] [address] Referring PhysicianNeurology04/21/24Team MemberRelationshipSpecialtyStart DateEnd Date Jose Chandler MD [address] [place] [address] PCP - GeneralFamily Rslhwbpr71/31/24 Sonam Drake NP Nurse PractitionerFaokly Medicine09/24/23 Za Wilkerson NP [address] [place] [address] Nurse PractitionerNeurology04/21/24 Sivan Banda DO [address] [place] [address] Referring PhysicianNeurology04/21/24Team MemberRelationshipSpecialtyStart DateEnd Date Jose Chandler MD [address] [place] [address] PCP - GeneralFamily Lmzylfjh78/31/24 Sonam Drake NP Nurse PractitionerFamily Medicine09/24/23 Za Wilkerson, RONALDO [address] [place] [address] Nurse PractitionerNeurology04/21/24 Sivan Banda DO [address] [place] [address] Referring PhysicianNeurology04/21/24Team MemberRelationshipSpecialtyStart DateEnd Date Jose Chandler MD [address] [place] [address] [facility] - [facility] Nbziraqf36/31/24 Sonam Drake NP Nurse PractitionerWaverly Health Centerly Medicine09/24/23 Za Wilkerson, RONALDO [address] [place] [id number] Nurse PractitionerNeurology04/21/24 Sivan Banda DO [address] [place] [id number] Referring PhysicianNeurology04/21/24Team MemberRelationshipSpecialtyStart DateEnd Date Jose Chandler MD [address] [place] [phone] [facility] - [facility] Jbuzlqor79/31/24 Sonam Drake NP Nurse PractitionerFamily Medicine09/24/23 Za Wilkerson, RONALDO [address] [place] [address] Nurse PractitionerNeurology04/21/24 Sivan Banda DO [address] [place] [address] Referring PhysicianNeurology04/21/24Team MemberRelationshipSpecialtyStart DateEnd Date Jose Chandler MD [address] [place] [address] PCP - Generalmily Oplwnrgu20/31/24 Sonam Drake NP Nurse PractitionerFamily Medicine09/24/23 Za Wilkerson, RONALDO [address] [place] [id number] Nurse PractitionerNeurology04/21/24 Sivan Banda DO [address] [place] [address] Referring PhysicianNeurology04/21/24Team MemberRelationshipSpecialtyStart DateEnd Date Jose Chandler MD [address] [place] [address] PCP - GeneralFamily Jgqcnpbm60/31/24 Sonam Drake NP Nurse PractitionerFamily Medicine09/24/23 Za Wilkerson NP [address] [place] [address] Nurse PractitionerNeurology04/21/24 Sivan Banda DO [address] [place] [address] Referring PhysicianNeurology04/21/24Team MemberRelationshipSpecialtyStart DateEnd Date Jose Chandler MD [address] [place] [address] PCP - Generalmily Ivubskfg26/31/24 Sonam Drake NP [facility] Medicine09/24/23 Za Wilkerson, RONALDO [address] [place] [address] Nurse PractitionerNeurology04/21/24 Sivan Banda DO [address], [facility] Referring PhysicianNeurology04/21/24Team MemberRelationshipSpecialtyStart DateEnd Date Jose Chandler MD [address] [place] [phone] PCP - GeneralFamily Eedrsnoh11/31/24 Sonam Drake NP [facility] Medicine09/24/23 Za Wilkerson NP [address] [place] [address] Nurse PractitionerNeurology04/21/24 Sivan Banda DO [address] [place] [address] Referring PhysicianNeurology04/21/24 Team Status: Inactive Member Role Status Dates Ameena Vera Primary Care Provider Active Sta rt: October 19, 2024 End: October 19, 2024Ameena Woodending ProviderActiveStart: October 19, 2024 End: October 19, 2024Team MemberRelationshipSpecialtyStart DateEnd Date Jose Chandler MD PCP - Generalmily Slrncefi34/31/24 Sonam Drake NP Nurse PractitionerFaokly Medicine09/24/23 Za Wilkerson NP Nurse PractitionerNeurology04/21/24 Sivan Banda DO [address] [place] [address] Referring PhysicianNeurology04/21/24Team MemberRelationshipSpecialtyStart DateEnd Date Jose Chandler MD [facility] - [facility] Xsxopqjg64/31/24 Sonam Drake NP [facility] Medicine09/24/23 Za Wilkerson NP Nurse PractitionerNeurology04/21/24 Sivan Banda DO [address] [place] [address] Referring PhysicianNeurology04/21/24 Team Status: Active Member Role Status Dates Ameena Vera NP-C Primary Care Provider Active Team Status: Inactive Member Role Status Dates Ameena Vera [employer] INSTALLER-C Primary Care Provider Active Start: October 19, 2024 End: October 19, 2024Ameena Vera , [employer] INSTALLER-CAttending ProviderActiveStart: October 19, 2024 End: October 19, 2024 Team Status: Active Member Role Status Dates Ameena Vera , [employer] INSTALLER-C Primary Care Provider Active Start: October 26, 2024 Kasi Bennett MDAttending ProviderActiveStart: October 26, 2024 Team Status: Inactive Member Role Status Dates Ameena Vera , [employer] ST[employer] INSTALLER-C Primary Care Provider Active Start: November 23, 2024 End: November 23, 2024Ameena Vera , [employer] INSTALLER-CAttending ProviderActiveStart: November 23, 2024 End: November 23, 2024 Team Status: Active Member Role/Relationship Status Dates Ameena Vera , [employer] STEREO INSTALLER-C Primary Care Provider Active Team Status: Inactive Member Role/Relationship Status Dates Ameena eVra , [employer] STEREO INSTALLER-C Primary Care Provider Active Start: October 19, 2024 End: October 19, 2024Ameena Vera , [employer] INSTALLER-CAttending ProviderActiveStart: October 19, 2024 End: October 19, 2024 Team Status: Active Member Role/Relationship Status Dates Ameena Alyssa Vera , [employer] INSTALLER-C Primary Care Provider Active Start: October 26, 2024 Kasi Bennett MDAttending ProviderActiveStart: October 26, 2024 Team Status: Inactive Member Role/Relationship Status Dates Ameena Alyssa Vera , CAR STEREO INSTALLER-C Primary Care Provider Active Start: November 23, 2024 End: November 23, 2024Ameena Vera , [employer]EREO INSTALLER-CAttending ProviderActiveStart: November 23, 2024 End: November 23, 2024 Team Status: Active Member Role/Relationship Status Dates Ameena Vera , CAR STEREO INSTALLER-C Primary Care Provider Active Start: November 30, 2024 Ameena Vera , [employer]EREO INSTALLER-CAttending ProviderActiveStart: November 30, 2024 Team Status: Inactive Member Role/Relationship Status Dates Ameena Vera , [employer] STEREO INSTALLER-C Primary Care Provider Active Start: December 09, 2024 End: December 09, 2024Lui Banks II, MDAttending ProviderActiveStart: December 09, 2024 End: December 09, 2024Team MemberRelationshipSpecialtyStart DateEnd Date Shaikh Connelly MD PCP - GeneralInternal Medicine Jose Chandler MD PCP - GeneralFamily Medicine09/23/2409 Unallocated, Cris Hernandez MD [address] [place] [address] PCP - GeneralFamily Crzquxxc00/15/ Jose Chandler MD PCP - GeneralFamily Hyezyvyg75/31/24 Sonam Drake, RONALDO Nurse PractitionerFamily Medicine09/24/23 Za Wilkerson NP [address] [facility] [place] [address] Nurse PractitionerNeurology04/21/24 Sivan Banda DO [address] [place] [address] Referring PhysicianNeurology04/21/24Team MemberRelationshipSpecialtyStart DateEnd Date Shaikh Connelly MD PCP - GeneralInternal Ngezklnk90/1/233 Shaikh Connelly MD PCP - GeneralInternal Medicine Jose Chandler MD PCP - GeneralFamily Medicine09/23/2409 UnallocatCris rubi MD [address] [place] [address] PCP - GeneralFamily Cohohfvt46/15/ Jose Chandler MD PCP - GeneralFamily Jsjvtolx70/31/24 Sonam Drake NP Nurse PractitionerFaokly Medicine09/24/23 Za Wilkerson, RONALDO [address] [place] [address] Nurse PractitionerNeurology04/21/24 Sivan Banda DO [address] [place] [address] Referring PhysicianNeurology04/21/24Team MemberRelationshipSpecialtyStart DateEnd Date Jose Chandler MD PCP - GeneralFamily Medicine09/23/2409 UnallocatCris rubi MD [address] [facility] [place] [address] PCP - GeneralFamily Smtnmsaj82/15/ Jose Chandler MD PCP - GeneralFamily Rdpmyqbm05/31/24 Snoam Drake NP Nurse PractitionerFamily Medicine09/24/23 Za Wilkerson NP [address] [facility] [place] [address] Nurse PractitionerNeurology04/21/24 Sivan Banda DO [address] [place] [address] Referring PhysicianNeurology04/21/24Team MemberRelationshipSpecialtyStart DateEnd Date Jose Chandler MD PCP - GeneralFamily Ebphafpb93/31/24 Sonam Drake NP Nurse PractitionerFamily Medicine09/24/23 Za Wilkerson NP Nurse PractitionerNeurology04/21/24 Sivan Banda DO [address] [place] [address] Referring PhysicianNeurology04/21/24Team MemberRelationshipSpecialtyStart DateEnd Date Shaikh Connelly MD PCP - GeneralInternal Snqxpejl34/1/233 Shaikh Connelly MD PCP - GeneralInternal Medicine Jose Chandler MD PCP - GeneralFamily Medicine09/23/2409 Unallocated, Cris Hernandez MD [address] [place] [address] PCP - GeneralFamily Mehwqvrk04/ Jose Chandler MD PCP - GeneralFamily Hxroszgy61/31/24 Sonam Drake, RONALDO Nurse PractitionerFamily Medicine09/24/23 Za Wilkerson, RONALDO [address] [place] [address] Nurse PractitionerNeurology04/21/24 Sivan Banda DO [address] [place] [address] Referring PhysicianNeurology04/21/24 INFORMATION SOURCE (unrecogn ized section and content) DATE CREATED AUTHOR 09/10/2021 [facility] DATE CREATED AUTHOR AUTHOR'S ORGANIZ ATION 06/08/2022 [facility] DATE CREATED AUTHOR AUTHOR'S ORGANIZ ATION 10/06/2023 [facility] DATE CREATED AUTHOR AUTHOR'S ORGANIZ ATION 06/01/2024 [facility] DATE CREATED AUTHOR AUTHOR'S ORGANIZ ATION 11/02/2024 [facility] DATE CREATED AUTHOR AUTHOR'S ORGANIZ ATION 12/05/2024 [facility] REASON FOR VISIT (unrecogniz ed section and content) ReasonOnset DateCommentsMed Zonose154ReasonCommentsMed RefillReason CommentsSleep ApneaReasonCommentsDiabetesReasonOnset DateCommentsMed Refill 4ReasonCommentsFollow-ln3vwYkaduxe FrequencyC/o of nocturnal enuresis ReasonOnset DateCommentsMed Baoygq204ReasonOnset DateCommentsMed Refill 4ReasonOnset DateCommentsMed Wrxrpf084ReasonCommentsCoughNasal CongestionReasonOnset DateCommentsMed Bbgmmk4803/09/2024ReasonCommentsFollow-up ReasonCommentsSkin CheckReasonOnset DateCommentsMed Tsmeae5703/30/2024ReasonOnset DateCommentsMed Mlfzyu2005/06/2024ReasonCommentsKnee PainReasonCommentsSleep Apnea ReasonOnset DateCommentsMed Synffi4006/23/2024ReasonOnset DateCommentsMed Refill 07/22/2024ReasonCommentsNEWPTH REF/LABSpecialtyDiagnoses / ProceduresReferred By ContactReferred To ContactEndocrinology Diagnoses Low serum parathyroid hormone (PTH) Procedures HI OFFICE/OUTPATIENT NEW HIGH MDM 60 MINUTES Ameena Vera, RONALDO [address] [place] [address] Phone: tel: fax: Kasi Bennett MD [address] [facility] [place] [address] Phone: tel: fax: Referral IDStatusReasonStart DateExpiration DateVisits RequestedVisits [id number] Review Specialty Services Required 1ReasonOnset DateCommentsMed Ajzudx9710/05/2024ReasonComments Follow-upPTH LAB Goals (unrecognized section and content) Goals [...] BE BASED ON THE PRIMARY CLINICAL RECORDS. Anywhere to Go [facility]. provides no warranty or guarantee of the accuracy or completeness of information in this document.
--- NOTE | 2024-12-30 11:03 | PM.CN ---
Consult Note: HPI Data of Consult Patient: known to practice within the last 3 years Requesting Physician: Chela Tijerina NP Primary Care Provider: Ameena Vera NP Consult Narrative Reason for consult: f/u Narrative: Brian Weir a pleasant 58 year old female presents for evaluation and management of chronic low back pain. pt has failed to benefit from 6 weeks of provider guided HEP/PT, tylenol, NSAIDs, heat and ice. Pain today 5/10 increasing to 9/10, pain increased with standing, walking, activity, lifting, stairs, bending, twisting, pushing, pulling. Utilizes baclofen, diclofenac, lyrica, and Percocet for pain with moderate relief without side effects. recently underwent bilateral L4-5 L5-S1 facet RFA with significant improvement in facet mediated pain. continues to endorse right low back pain with standing and walking, improves significantly with sitting and forward flexion. cc:: CC: Chela Tijerina NP Review of Systems ROS Musculoskeletal Reports: back pain PFSH PFSH Medical History Morbid obesity due to excess calories ?E66.01 - Morbid (severe) obesity due to excess calories (ICD-10) Type 2 diabetes mellitus with hyperglycemia ?E11.65 - Type 2 diabetes mellitus with hyperglycemia (ICD-10) HTN (hypertension) ?I10 - Essential (primary) hypertension (ICD-10) Lumbar spondylosis ?M47.816 - Spondylosis without myelopathy or radiculopathy, lumbar region (ICD-10) Fracture of foot ?S92.909A - Unspecified fracture of unspecified foot, initial encounter for closed fracture (ICD-10) Closed fibular fracture ?S82.409A - Unspecified fracture of shaft of unspecified fibula, initial encounter for closed fracture (ICD-10) Fracture of medial cuneiform of left foot ?S92.242A - Displaced fracture of medial cuneiform of left foot, initial encounter for closed fracture (ICD-10) Fracture of metatarsal of left foot, closed ?S92.302A - Fracture of unspecified metatarsal bone(s), left foot, initial encounter for closed fracture (ICD-10) Dislocation of foot, left, closed ?S93.305A - Unspecified dislocation of left foot, initial encounter (ICD-10) Mild protein-calorie malnutrition ?E44.1 - Mild protein-calorie malnutrition (ICD-10) Acute exacerbation of chronic low back pain ?M54.50 - Low back pain, unspecified (ICD-10) ?G89.29 - Other chronic pain (ICD-10) Hyperlipidemia ?E78.5 - Hyperlipidemia, unspecified (ICD-10) Iron deficiency anemia ?D50.9 - Iron deficiency anemia, unspecified (ICD-10) Lumbar radiculopathy ?M54.16 - Radiculopathy, lumbar region (ICD-10) Chronic prescription opiate use ?Z79.891 - long term care phlebotomist (current) use of opiate analgesic (ICD-10) Sacroiliac joint pain ?M53.3 - Sacrococcygeal disorders, not elsewhere classified (ICD-10) Muscle spasm ?M62.838 - Other muscle spasm (ICD-10) Cervical spondylosis ?M47.812 - Spondylosis without myelopathy or radiculopathy, cervical region (ICD-10) Lumbar stenosis with neurogenic claudication ?M48.062 - Spinal stenosis, lumbar region with neurogenic claudication (ICD-10) Compression fracture of L1 vertebra ?S32.010A - Wedge compression fracture of first lumbar vertebra, initial encounter for closed fracture (ICD-10) Tubal ?O00.109 - Unspecified tubal without intrauterine (ICD-10) TMJ (dislocation of temporomandibular joint) ?S03.00XA - Dislocation of jaw, unspecified side, initial encounter (ICD-10) Upper back pain ?M54.9 - Dorsalgia, unspecified (ICD-10) Back pain ?M54.9 - Dorsalgia, unspecified (ICD-10) Neck pain ?M54.2 - Cervicalgia (ICD-10) Osteoarthritis ?M19.90 - Unspecified osteoarthritis, unspecified site (ICD-10) Obesity ?E66.9 - Obesity, unspecified (ICD-10) Heartburn ?R12 - Heartburn (ICD-10) Acid reflux ?K21.9 - Gastro-esophageal reflux disease without esophagitis (ICD-10) Smoker ?F17.200 - Nicotine dependence, unspecified, uncomplicated (ICD-10) Surgical History H/O unilateral salpingectomy ?Z90.79 - Acquired absence of other genital organ(s) (ICD-10) S/P lumbar spine operation ?Z98.890 - Other specified postprocedural states (ICD-10) H/O: hysterectomy ?Z90.710 - Acquired absence of both cervix and uterus (ICD-10) Family History Mother Family history of CHF (congestive heart failure) Family history of cancer Family history of diabetes mellitus Family history of hypertension Family history of myocardial infarction Social History Within the past year, how often did you have a drink containing alcohol: monthly or less Smoking status: Light tobacco smoker Non-prescribed substance use: denies use Previous occupational history: retired/disability Highest level of school completed/degree received: high school graduate Are you now , , , , never or living with a partner: In a typical week, how many times do you talk on the telephone with family, friends, or neighbors: 3 or more times per week How often do you get together with friends or relatives: 3 or more times per week How often do you attend latter-day or catholic services: never Little interest or pleasure in doing things: not at all Feeling down, depressed, or hopeless: not at all Feel stressed/tense/nervous/anxious/difficulty sleeping: not at all Do you think of yourself as: straight/heterosexual Gender Identity: female Meds Home Medications and Allergies Home Medications ?Medication ?Instructions ?Recorded ?Confirmed ?Type alendronate 70 mg tablet 70 mg PO QWEEK 07/20/22 11/30/24 History allopurinol 300 mg tablet 300 mg PO DAILY 07/20/22 11/30/24 History aspirin 81 mg tablet,delayed 81 mg PO DAILY 07/20/22 11/30/24 History release (Adult Aspirin Regimen) divalproex 500 mg tablet,delayed 500 mg PO BID 07/20/22 11/30/24 History release (Depakote) multivitamin 1 tab PO DAILY 07/20/22 11/30/24 History oxycodone-acetaminophen 5 mg-325 1 tab PO DAILY PRN pain 07/20/22 11/30/24 History mg tablet prasterone (DHEA) 50 mg capsule 25 mg PO DAILY 07/20/22 11/30/24 History (DHEA) famotidine 20 mg tablet 20 mg PO BID 06/08/23 11/30/24 History rosuvastatin 20 mg tablet 20 mg PO DAILY 06/08/23 11/30/24 History furosemide 20 mg tablet 20 mg PO .every other day edema 09/21/24 11/30/24 History diclofenac sodium 75 mg 75 mg PO BID PRN pain #0 tabs 09/22/24 11/30/24 Rx tablet,delayed release metformin 500 mg tablet 500 mg PO BID 09/22/24 11/30/24 History semaglutide 2 mg/dose (8 mg/3 mL) 2 mg subcut Q7D 09/22/24 11/30/24 History subcutaneous pen injector (Ozempic) baclofen 10 mg tablet 10 mg PO BID 10/07/24 11/30/24 History pregabalin 75 mg capsule (Lyrica) 75 mg PO BID 10/26/24 11/30/24 History Allergies Allergy/AdvReac Type Severity Reaction Status Date / Time No Known Drug Allergies Allergy Verified 10/26/24 10:35 Exam Constitutional Documenting provider has reviewed patient's vital signs: yes Common normals: no apparent distress, oriented x3 and alert General appearance: cooperative HENME Common normals: normocephalic, hearing grossly normal bilaterally and moist oral mucous membranes Head and scalp: normocephalic Eye Common normals: PERRL Pupil: PERRL Neck & C-Spine Common normals: full ROM General: normal visual inspection Chest Common normals: inspection of chest normal Respiratory Common normals: normal respiratory effort, no retractions and no use of accessory muscles Back & Pelvis Lumbar spine/lower back: ROM limited and straight leg raise positive right; no pain with ROM Sacroiliac joints: SI joints normal Other: moderate pain following right L3,4,5 with standing and walking strength 4/5 in RLE and 5/5 in LLE Neuro Common normals: oriented x3 Sensorium/orientation: alert Psych Common normals: mental status grossly normal, thought process normal, cooperative, affect normal, speech normal and activity/motor behavior normal Speech: normal speech Thought process: normal thought process Results Imaging Lumbar MRI: Attestation: I have reviewed the pertinent imaging results. Radiologist's impression: Mild chronic compression fracture at L1. Grade 1 retrolisthesis at L1-L2 measures 3 mm. Grade 1 retrolisthesis at L2-L3 measures 3 mm. There is grade 1 anterolisthesis at L5-S1 measuring 8 mm. Signal in the bone marrow spaces is normal. No bone marrow edema. No suspicious osseous lesions. L5-S1, severe facet arthropathy. Grade 1 spondylolisthesis measures 8 mm. Moderate to severe degenerative disc disease. No spinal canal stenosis. Spondylolisthesis, facet hypertrophy, disc space narrowing and osteophytes result in severe left foraminal narrowing. Mild right foraminal narrowing. L4-L5, moderate to severe degenerative disc disease. No spinal canal stenosis. No significant foraminal narrowing. L3-L4, moderate degenerative disc disease. No spinal canal stenosis. Mild right foraminal narrowing. No foraminal narrowing on the left. L2-L3, severe degenerative disc disease. There is severe disc space narrowing and diffuse irregularity of the endplates. Reactive degenerative endplate signal changes are noted. Grade 1 retrolisthesis. There is moderate spinal canal stenosis. Mild foraminal narrowing bilaterally. L1-L2, severe degenerative disc disease. Grade 1 retrolisthesis. No spinal canal stenosis. No foraminal narrowing. No abnormal signal in the conus medullaris. No paraspinal mass. Additional Findings Additional findings: If on a controlled substance or opioids, I have checked an [place]AR[place] report on this patient and there are no aberrancies noted in the prescribing history.??If on a controlled substance or opioid a drug screen was completed and reviewed within the last year, and if there has not been a drug screen completed we ordered one today to monitor higher risk, state monitored pain medication use. As part of providing excellent, safe, comprehensive care, the following was completed at our patient's visit: 1. A medication reconciliation and review to ensure accurate knowledge of current/active medications, including asking our patients to inform us about any thgj-luw-ztkumhl medications or herbal remedies/nutritional supplements/alternative remedies. 2. A review to specifically ensure our patients have had annual screening for screening for depression, screening for tobacco use, and screening for unhealthy alcohol use. For concerning screenings had a discussion with the patient, provided patient education, and recommended follow-up with primary care provider when appropriate. If patient noted with a risk of falling, they received education on strength, gait, and balance training to prevent future risk of falling. Portions of this note may have been carried over from the previous visit and updated as appropriate. Please note this office utilizes paper charting in addition to the electronic medical record. A list of current medications, vitals, and PMH is available there as the clinical staff outside of myself do not have access to [employer] charting during the clinic day operations. As part of providing quality comprehensive care the current medications, vitals, and PMH were reviewed in the paper chart. Assessment and Plan Assessment and Plan (1) Lumbar stenosis with neurogenic claudication: (2) Sacroiliitis: (3) Chronic prescription opiate use: Assessment and Plan: I feel these medications are improving the patient's quality of life and allow them to tolerate activities of daily living as well as participate in recreational activity.? The patient does not report intolerable side effects. The patient is NOT opioid naive and non-pharmacologic and non-opioid treatment has failed to significantly relieve the patient's pain and improve functionality. The patient has a diagnosis that is related to a somatic or visceral pain etiology. ? ?? I reviewed with the patient the potential risks and side effects with the use of? opioid medications including but not limited to respiratory depression,? sedation, and even . Within the last 12 months I have verified the patient has access to naloxone should? these effects occur. The patient was advised to let? their family know they had Naloxone in case they would need to administer? the medication. I advised the patient to avoid the use of any other? sedation substances including alcohol, THC, and benzodiazepines while? taking opioid medications due to the risk of compounding side effects and? detrimental outcomes. within the last 12 months I have reviewed the INSTRUCTIONAL MANAGER, pain treatment agreement and urine drug screen.? ?? A drug screen was completed within the last year, and no aberrancies were noted regarding their use of controlled substances. The patient understands they are subject to the terms and conditions of the pain contract that they have signed. ? ?? I have checked an OARRS report on this patient today and there are no aberrancies noted in the prescribing history.? (4) Lumbar spondylosis: Plan The patient has had over 3 months of moderate to severe right low back pain with functional impairment and inadequate response to conservative care including NSAIDS (unless there are contraindication such as concurrent blood thinners), multiple oral or topical pain medications, and home exercise program/physical therapy.? Patient has completed >6 weeks of guided home exercise program and/or formal physical therapy program without relief of their symptoms.? The Oswestry Disability Index was completed, and the patient scored a 42%.? proceed with right L3-4 L4-5 TFESI under fluoroscopy for lumbar stenosis with NC continue percocet 5-325mg daily prn moderate to severe pain, notes significant relief for 6 hours without side effects. sparingly utilizes continue baclofen 10mg bid prn pain/spasms continue lyrica 75mg BID continue diclofenac 75mg bid prn pain, take with food f/u after injection
== END 2024-12-30 10:22 | disposition home or self-care (01) ==
LOC: PM 10:22
PROVIDERS: PCP Nurse Practitioner; Visit Provider Nurse Practitioner
DX: M48.062 Spinal stenosis, lumbar region with neurogenic claudication (principal); M46.1 Sacroiliitis, not elsewhere classified; Z79.891 Long term (current) use of opiate analgesic
CPT/HCPCS: G0463

== ENCOUNTER 2025-01-11 07:08 | Day surgery (SDC) | payer OTHER, MEDICARE, SELFPAY ==
--- OUTSIDE RECORDS SUMMARY | 2024-06-10 05:00 | XMS_ITS ---
Author Organization The [facility] in [place] Address [address] [place] [address] Care Team Providers Care Urgent Care Physician Name Role Phone Maricel HOLLIS, Primary Care Provider Carroll Hidalgo Unavailable [phone] REASON FOR VISIT 1 year f/u from initial injury Encounters Encounter Location Date Provider Diagnosis [facility] (PODIATRY) [address] [place] [address] [place] [address] 06/10/2024 Carroll Jefferson Plan Of Treatment No Information Progress Notes * Jaun WEIRB:1965 (59 yo F)Acc No.[id number]:06/10/2024 UNLOCKED PROGRESS NOTE Follow Up Patient: Brian PENA :?Carroll Jefferson DPM, MSDOB:1965???Age: 58 Y???Sex:FemaleDate:06/10/2024Phone:[phone]:[address] [place], [place] [address]Pcp:Shaikh Maricel MD Subjective: * Chief Complaints: * 1 . 1 year f/u from initial injury. * Medical History: Objective: * Vitals: Assessment: Plan: * Treatment: * * Electronic signature of Carroll Jefferson DPM on 01/11/2025 at 07:12 AM ESTSign off status: PendingVisit Status:?OFF CANC (OFFICE CANCEL) * Provider: Latoya Jefferson DPM, MS Date: 0 06/10/2024 Generated for Printing/Faxing/eTransmitting on:?01/11/2025 07:12 AM EST
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
--- OUTSIDE RECORDS SUMMARY | 2025-01-11 07:12 | XMS_ITS | CCD ---
Author Organization [facility] Care Team Providers Care It Application Architect Name Role Phone House DO, Sr Jonathan [...] .JOSE Consulting Unavailable LAKSHMIPATHY ., NARENDRANATH Admitting Nellei vailable LAKSHMIPATHY ., NARCAMRYNATH Attending Nellie vailable [...] Unavailable HOUSE, DR BASURTO Primary Care Unavailable WOODLAWN, DR RYAN Guzman Consulting Unavailable HOUSE, DR [...] Consulting Unavailable Elle Hendricks Unavailable Maricel HOLLIS, [facility] Primary Care Provider Vidal AGRICULTURAL PRODUCE WASHER, Sonam Unavailable Ramesh HOLLIS, Jose Primary Care Provider [phone] Jose Chandler MD Primary Care Provider [phone] Vidal AGRICULTURAL PRODUCE WASHER, Sonam Unavailable Rock HIGGINS, Za Unavailable Sivan Banda DO Unavailable Lui Banks II Attending UnavailLui Alvarado II Admitting Unavailcurtis e NON STAFF Primary Care Unavailable NON STAFF Primary Care Provider UnavailLui Alvarado MD Attending Provider [phone] Rock IHGGINS, Za Unavailable Ameena Vera Primary Care Provider Ameena Vera Attending Provider Jose Chandler MD Primary Care Provider Rock HIGGINS, Za Unavailable [phone] SONAM DRAKE Attending UnavailSONAM Sheffield Attending UnavailALICIA Reese Attending Unavailable ZA WILKERSON Attending Unavailable AMEENA VERA Attending Unavailable KASI BENNETT Attending Unavailable AMEENA VERA Referring Unavailable AMEENA VERA Attending Unavailable KASI BENNETT Attending Unavailable VIDAL, SONAM Attending UnavailSIVAN Cruz Attending Unavailable VIDAL, SONAM Referring Unavailcurtis Vera AGRICULTURAL PRODUCE WASHER-C, Ameena Shah Primary Care Provider [phone] Chuy AGRICULTURAL PRODUCE WASHER-C, Ameena Shah Attending Provider Kasi Bennett MD Attending Provider [phone] Keo HOLLIS, Andrius Esposito Attending Unavailable Keo HOLLIS, Andri Vbhargav Attending Unavailable Keo HOLLIS, Andri Vbhargav Attending Unavailable Lui Banks MD Attending Provider Maricel HOLLIS, Barrios Primary Care Provider Jose Chandler MD Primary Care Provider UnallocatCris rubi MD Provider Primary Care Provi shayna Rock HIGGINS, Za Unavailable [phone] Sivan Banda DO Unavailable Maricel HOLLIS, [facility] Primary Care Provider Medications Current Medications MedicationDrug Class(es)DatesSig (Normalized)Sig (Original)acetaminophen 325 mg / oxyCODONE hydrochloride 5 mg oral tablet (20 sources)Opioid AgonistStart: 43-07-0770knsr 1 tablet by mouth every twenty- four hours as neededoxyCODONE-acetaminophen (Percocet) 5-325 MG tablet Take 1 tablet by mouth Daily as needed 07/01/2024 ActiveStart: 07-20-2022 End: 31-29-9834rgub 1 tablet by mouth once dailyoxyCODONE-acetaminophen (Percocet) 5-325 MG tablet Take 1 tablet by mouth Daily 07/20/2022 12/31/2023 Discontinued (Med list cleanup)Start: 48-62-1052ijki 1 tablet by mouth every six hoursPercocet 10-325 MG 1 tablet as needed Orally every 6 hrs Activetake 1 tablet by mouth once as neededoxyCODONE-acetaminophen (PERCOCET) 10-325 MG per tablet Percocet 10 mg-325 mg tablet Take 1 tablet as needed by oral route. 0 Activealendronic acid 70 mg oral tablet (20 sources)BisphosphonateStart: 09-03-0735ptmi 1 tablet by mouth every week Start: 03-09-2024 End: 48-76-1173gtdo 1 tablet by mouth in the morningalendronate [...] tablet 1 08/31/2024 02/15/2025 ActiveStart: 07-04-2023 End: 72-78-7346yebm 1 tablet by mouth in the morningalendronate (Fosamax) 70 MG tablet Indications: Osteoporosis, unspecified osteoporosis type, unspecified pathological fracture presence (CMS/[facility]) Take 1 tablet (70 mg) by mouth every 7 (seven) days Take in the morning with a full glass of water, on an empty stomach, and do not take anything else bymouth or lie down for the next 30 min. 12 tablet 1 07/04/2023 12/31/2023 Discontinued (Med list cleanup)Start: 83-88-8708clwn 1 tablet by mouth oncealendronate (FOSAMAX) 70 MG tablet TAKE 1 TABLET BY MOUTH EVERY SATURDAY 0 08/17/2021 ActiveStart: 01-12-2017 End: 74-62-0777gmzi 1 tablet by mouth every weekAlendronate (Fosamax) [...] tablet (20 sources)Xanthine Oxidase InhibitorStart: 07-04-2023 End: 66-54-7433ukxk 1 tablet by mouth once dailytake 1 tablet by mouth every twenty-four hoursAllopurinol 300 MG 1 tablet Orally Once a day ActiveALLOPURINOL PO Take by mouth 0 Activeamoxicillin 875 mg / clavulanate 125 mg oral tablet (4 sources)Penicillin-class AntibacterialStart: 06-11-2024 End: 63-11-1493ooem 1 tablet by mouth in the morningamoxicillin-clavulanate (Augmentin) 875-125 MG tablet Indications: Acute non-recurrent sinusitis ofother sinus Take 1 tablet (875 mg) by mouth in the morning and 1 tablet (875 mg) before bedtime. Doall this for 10 days. Take with food. 20 tablet 06/11/2024 06/21/2024 ActiveStart: 03-03-2024 End: 63-34-5518hbxn 1 tablet by mouth in the morningamoxicillin-clavulanate [...] sources)Platelet Aggregation Inhibitor, Nonsteroidal Anti-inflammatory Drug Start: 39-61-1110vvatumnegsg 200 mg oral capsule (3 sources)Non-narcotic AntitussiveStart: 03-03-2024 End: 22-24-3934pfwm 1 capsule by mouth three times daily as needed for cough benzonatate (Tessalon) 200 MG capsule Indications: Upper respiratory infection with cough and congestion Take 1 capsule (200 mg) by mouth 3 (three) times a day as needed for cough for up to 7 days Donot crush or chew. 20 capsule 03/03/2024 03/10/2024 Activechlorhexidine gluconate 40 mg/ml medicated liquid soap (1 source)Start: 96-86-2152sjktzkxtdcgth (Hibiclens) 4 % external liquid Indications: Hidradenitis [...] Activecolchicine 0.6 mg oral tablet (20 sources)Start: 34-49-0106nket 1 tablet by mouth every twenty-four hours Start: 05-28-2024 End: 70-58-3188qxve 1 tablet by mouth once dailyColchicine 0.6 mg tablet Discontinued 0.6 MG PO Daily May 28, 2024 12:00am November 11, 2024 10:51am Start: 03-03-2024 End: 03-85-2859qfnukvqozw 0.6 MG tablet Indications: Chronic gout of multiple sites, unspecified cause TAKE 2 TABLETS BY MOUTH AT ONSET OF ACUTE GOUT, MAY TAKE 1 TABLET IN 1 HOURS. NO MORE THAN 3 TABLETS DAILY 15 tablet 1 08/05/2024 ActiveStart: 12-18-2023 End: 68-52-9387niygxosrbx 0.6 MG tablet Indications: Gout, unspecified cause, unspecified chronicity, unspecified site TAKE 2 TABLETS BY MOUTH AT ONSET OF ACUTE GOUT, MAY TAKE 1 TABLET IN 1 HOURS. NO MORE THAN 3 TABLETS DAILY 30 tablet 12/18/2023 12/31/2023 Discontinued (Med list cleanup)Start: 03-06-2023 End: 07-82-8063faajhwyqtt 0.6 MG tablet Indications: Gout, unspecified cause, unspecified chronicity, unspecified site TAKE 2 TABLETS BY MOUTH AT ONSET OF ACUTE GOUT, MAY TAKE 1 TABLET IN HOUR. NO MORE THAN 3 TABLETS IN ONE DAY 30 tablet 03/06/2023 11/04/2023 Discontinued (Reorder)Start: 05-02-2022 End: 60-52-9492fxjwxtwabq 0.6 MG tablet Indications: Gout, unspecified cause, unspecified chronicity, unspecified site Take 1 tablet (0.6 mg) by mouth See administration instructions TAKE 2 TABLETS BY MOUTH AT ONSET OF ACUTE GOUT, MAY TAKE 1 TABLET IN HOUR. NO MORE THAN 3 TABLETS IN ONE DAY 30 tablet 11/04/2023 DiscontinuedContinuous Glucose Environmental Maintenance Worker (Dexcom G7 Environmental Maintenance Worker) device (20 sources)Start: 94-51-5979Bjgsdwangq Glucose Environmental Maintenance Worker (Dex[employer] G7 Environmental Maintenance Worker) device Indications: Type 2 diabetes mellitus with diabetic microalbuminuria, without long-term current use of insulin (HCC) 1 each continuously 1 each 03/03/2024 ActiveStart: 04-70-4985Whuzuazcmt Glucose Environmental Maintenance Worker (Dexcom G7 Environmental Maintenance Worker) device Indications: Type 2 diabetes mellitus with diabetic microalbuminuria, without long-term current use of insulin ([facility]/HCC) 1 each continuously 1 each 03/03/2024 ActiveContinuous Glucose Sensor (Dexcom G7 Sensor) misc (20 sources)Start: 08-05-2024 End: 64-65-3273Rshxgnamfs Glucose Sensor (Dexcom G7 Sensor) [facility] Indications: Type 2 diabetes mellitus with diabetic microalbuminuria, without long-term current use of insulin ([facility]) 1 each continuously 3 each 11 08/05/2024 09/04/2024 ActiveStart: 03-30-2024 End: 25-75-6675Mzibioxjpn Glucose Sensor (Dexcom G7 Sensor) misc Indications: Type 2 diabetes mellitus with diabetic microalbuminuria, without long-term current use of insulin (HCC) 1 each continuously 3 each 11 03/30/2024 08/05/2024 Discontinued (Reorder)Start: 61-73-2761Unczzzbdmv Glucose Sensor (Dexcom G[facility] Sensor) [facility] Indications: Type 2 diabetes mellitus with diabetic microalbuminuria, without long-term current use of insulin ([facility]) 1 each continuously 3 each 11 03/30/2024 ActiveStart: 75-88-1879Yglekuywie Glucose Sensor (Dexcom G7 Sensor) misc Indications: Type 2 diabetes mellitus with diabetic microalbuminuria, without long-term current use of insulin ([facility]/HCC) 1 each continuously 3 each 11 03/30/2024 ActiveStart: 03-03-2024 End: 44-69-3350Xcwsxhriuz Glucose Sensor (Dexcom G7 Sensor) [facility] Indications: Type 2 diabetes mellitus with diabetic microalbuminuria, without long-term current use of insulin ([facility]/HCC) 1 each continuously 3 each 11 03/03/2024 03/30/2024 Discontinued (Reorder)Start: 22-20-7495Xiehfocvwr Glucose Sensor (Dexcom G7 Sensor) [facility] Indications: Type 2 diabetes mellitus with diabetic microalbuminuria, without long-term current use of insulin ([facility]) 1 each continuously 3 each 03/03/2024 Activediclofenac sodium 75 mg delayed release oral tablet (20 sources)Nonsteroidal Anti-inflammatory DrugStart: 07-04-2023 End: 02-75-1120fddq 1 tablet by mouth once in the [...] tablet 1 07/04/2023 12/31/2023 ExpiredStart: 08-07-2021 End: 60-26-3485hlty 1 tablet by mouth twice dailyVoltaren Activefamotidine 20 mg oral tablet (20 sources)Histamine-2 Receptor AntagonistStart: 08-20-2024 End: 96-16-4580inms 1 tablet by mouth twice dailyStart: 05-19-2024 End: 69-69-3235llww 1 tablet by mouth once dailyFamotidine (Pepcid) 20 mg tablet Discontinued 20 MG PO Daily May 28, 2024 12:00am October 19, 2024 7:56am Start: 03-16-2024 End: 90-59-4832bltr 1 tablet by mouth in the morningfamotidine (Pepcid) 20 MG tablet Indications: Gastroesophageal reflux disease without esophagitis Take 1 tablet (20 mg) by mouth in the morning and 1 tablet (20 mg) before bedtime. 180 tablet 1 05/19/2024 08/17/2024 ActiveStart: 07-04-2023 End: 45-90-7597xqds 1 tablet by mouth once dailyfamotidine (Pepcid) 20 MG tablet Indications: Gastroesophageal reflux disease without esophagitis Take 1 tablet (20 mg) by mouth Daily 90 tablet 1 07/04/2023 03/16/2024 DiscontinuedStart: 58-28-1373agix 1 tablet by mouth once dailyfamotidine (PEPCID) 20 MG tablet TAKE 1 TABLET BY MOUTH EVERY DAY 0 08/16/2021 Activefluticasone propionate 0.05 mg/actuat metered dose nasal spray (20 sources)CorticosteroidStart: 03-03-2024 End: 05-64-8040wngn 1-2 spray(s) nasal route once dailyfluticasone (Flonase) 50 MCG/ACT nasal spray Indications: Upper respiratory infection with cough and congestion Administer 1-2 sprays into each nostril Daily Shake gently. Before first use, prime pump. After use, clean tip and replace cap. 16 g 2 03/03/2024 08/20/2024 Discontinued (Therapy completed)furosemide 20 mg oral tablet (20 sources)Loop DiureticStart: 08-05-2023 End: 41-79-9952vvhv 1 tablet by mouth once daily as neededglimepiride 1 mg oral tablet (10 sources)SulfonylureaStart: 09-03-2023 End: 69-06-5767mpcw 1 tablet by mouth once dailyglimepiride (Amaryl) 1 MG tablet 1 mg 1/2 po every day 09/03/2023 03/03/2024 DiscontinuedStart: 49-81-9942vlar 0.5 tablet by mouth once daily in the morningglimepiride (AMARYL) 1 MG tablet TAKE 1/2 TABLET BY MOUTH EVERY MORNING 0 06/05/2021 ActivehydroCHLOROthiazide 25 mg oral tablet (7 sources)Thiazide DiureticStart: 94-70-5981rguw 1 tablet by mouth once daily hydroCHLOROthiazide (HYDRODIURIL) 25 MG tablet TAKE 1 TABLET BY MOUTH EVERY DAY 0 08/16/2021 ActiveStart: 01-12-2017 End: 52-68-0994krmw 1 tablet by mouth once dailyHydrochlorothiazide 25 mg Tablet Discontinued 25 MG PO Daily January 12, 2017 1:00am January 15, 2017 2:23pm methocarbamol 750 mg oral tablet (6 sources)Muscle RelaxantStart: 41-66-8519tmxe 1 tablet by mouth once daily at bedtimemethocarbamol (ROBAXIN) 750 MG tablet TAKE 1 TABLET BY MOUTH EVERY NIGHT AT BEDTIME 0 08/15/2021 ActiveStart: 01-12-2017 End: 42-89-3304dohy 1 tablet by mouth at bedtime as [...] mg oral tablet (5 sources)Start: 03-03-2024 End: 63-58-7235hyco 1 tablet by mouth once dailypredniSONE (Deltasone) 20 MG tablet Indications: Upper respiratory infection with cough and congestion Take 1 tablet (20 mg) by mouth Daily for 5 days 5 tablet 03/03/2024 03/08/2024 Active Start: 08-18-2023 End: 37-38-2948xxdp 1 tablet by mouth once dailypredniSONE (Deltasone) [...] tablet (20 sources)HMG-CoA Reductase InhibitorStart: 07-04-2023 End: 19-37-6189ofhf 1 tablet by mouth once dailytake 1 tablet by mouth every twenty-four hoursCrestor 20 MG 1 tablet Orally Once a day ActiveSemaglutide (3 sources)Start: 35-54-1466yxfypr 2 mg by subcutaneous injection every week Start: 94-56-3794uznvsi 2 mg by subcutaneous injection every weekSemaglutide (Ozempic) 2 mg/dose (8 mg/3 mL) pen injector Active 2 MG SUBCUT every week May 28, 2024 12:00am Complies with drug therapySemaglutide (Ozempic) 2 mg/dose (8 mg/3 mL) pen injector (1 source)Start: 94-35-7148pzjsxf 2 mg by subcutaneous injection every week Semaglutide (Ozempic) 2 mg/dose (8 mg/3 mL) pen injector Active 2 MG SUBCUT every week May 28, 2024 12:00amSemaglutide, 2 MG/DOSE, (Ozempic, 2 MG/DOSE,) 8 MG/3ML solution pen-injector (20 sources)Start: 50-41-1421Wktdkwywlai, 2 MG/DOSE, (Ozempic, 2 MG/DOSE,) 8 MG/3ML solution pen-injector Indications: Type 2 diabetes mellitus with diabetic microalbuminuria, without long-term current use of insulin (HCC) Inject 2 mg under the skin every 7 (seven) days 9 mL 1 05/19/2024 ActiveStart: 05-19-2024 End: 95-21-9581Lugajwuufdp, 2 MG/DOSE, (Ozempic, 2 MG/DOSE,) 8 MG/3ML solution pen-injector Indications: Type 2 diabetes mellitus with diabetic microalbuminuria, without long-term current use of insulin (HCC) Inject 2 mg under the skin every 7 (seven) days 9 mL 1 05/19/2024 08/11/2024 ActiveStart: 05-19-2024 End: 21-83-8122Snnikgzairp, 2 MG/DOSE, (Ozempic, 2 MG/DOSE,) 8 MG/3ML solution pen-injector Indications: Type 2 diabetes mellitus with diabetic microalbuminuria, without long-term current use of insulin (CMS/HCC) Inject 2 mg under the skin every 7 (seven) days 9 mL 1 05/19/2024 08/11/2024 ActivetraZODone hydrochloride 50 mg oral tablet (1 source)Serotonin Reuptake InhibitorStart: 97-89-3747myyk 1 tablet by mouth once daily at bedtimetraZODone (DESYREL) 50 MG tablet TAKE 1 TABLET BY MOUTH EVERY NIGHT AT BEDTIME 0 08/17/2021 Activedivalproex sodium 500 mg delayed release oral tablet (20 sources)Mood Stabilizer, Anti-epileptic AgentStart: 07-04-2023 End: 43-44-8053msqq 1 tablet by mouth in the morningdivalproex (Depakote) 500 MG EC tablet Indications: Migraine with aura and without status migrainosus, not intractable Take 1 tablet (500 mg) by mouth in the morning and 1 tablet (500 mg) before bedtime. Do not crush, chew, or split. 180 tablet 1 08/31/2024 02/27/2025 ActiveStart: 69-07-6715fgos 1 tablet by mouth twice dailytake 1 tablet by mouth every twelve hoursDepakote 500 mg 1 tablet Orally twice a day ActiveVitamin C 500 MG (2 sources)Vitamin C 500 MG Orally Active Completed/Discontinued Medications MedicationDrug Class(es)DatesSig (Normalized)Sig (Original)ascorbic acid 100 mg oral tablet (9 sources)Vitamin CStart: 01-12-2017 End: 53-73-7708rvaa 5 tablets by mouth once dailyAscorbic Acid [...] tablet (20 sources)gamma-Aminobutyric Acid-ergic AgonistStart: 10-19-2024 End: 70-14-5613lbiz 1 tablet by mouth every twelve hours as needed for muscle spasmsBaclofen 20 mg tablet Discontinued 20 MG PO Every 12 hours as needed for spasms October 191:56am October 19, 2024 12:12pm Spasm of back muscles Muscle spasm of backStart: 10-19-2024 End: 11-41-1292ykuy 1 tablet by mouth twice daily as needed for muscle spasms Start: 05-28-2024 End: 08-69-6076hqfq 1 tablet by mouth twice dailyBaclofen 20 mg tablet Discontinued 20 MG PO Twice daily May 28, 2024 12:00am October 19, 2024 7:56amStart: 08-22-2023 End: 70-04-6288vmhy 1 tablet by mouth three times daily [...] topical lotion (13 sources)Lincosamide AntibacterialStart: 02-25-2023 End: 92-99-0255toooralhanf (Cleocin T) 1 % lotion Indications: Hidradenitis suppurativa Apply thin later to affected areas on the body every day during flares, 30 day supply 60 mL 02/25/2023 12/31/2023 Discontinued (Med list cleanup)eletriptan 40 mg oral tablet (11 sources)Serotonin-1b and Serotonin-1d Receptor AgonistStart: 01-12-2017 End: 60-07-1678Stxuplhbqy (Relpax) 40 mg Tablet Discontinued 40 MG PO as needed for Migraine Headache January 12, 2017 1:00am May 28, 2024 1:17pmtake 1 tablet by mouth every twenty-four hoursRelpax 40 MG 1 tablet as needed one time Orally Once a day Activeindomethacin 50 mg oral capsule (5 sources)Nonsteroidal Anti-inflammatory DrugStart: 01-12-2017 End: 32-62-9043sagu 1 capsule by mouth twice dailyIndomethacin 50 mg Capsule Discontinued 50 MG PO Twice daily January 12, 2017 1:00am January 15, 2017 2:23pm goutlactobacillus acidophilus 1.5 mg oral capsule (5 sources)Start: 01-12-2017 End: 26-20-1930Rejyegxhkrhjx Acidophilus (Probiotic Acidophilus) 1.5 mg (250 million cell) Capsule Discontinued PODaily January 12, 2017 1:00am January 15, 2017 2:23pmlansoprazole 30 mg delayed release oral capsule (5 sources)Proton Pump InhibitorStart: 01-12-2017 End: 69-32-0055rymu 1 capsule by mouth once dailyLansoprazole 30 mg Capsule,Delayed Release(Dr/Ec) Discontinued 30 MG PO Daily January 12, 2017 1:00am October 19, 2024 7:54ammetFORMIN hydrochloride 500 mg oral tablet (20 sources)BiguanideStart: 64-86-6453hajKFIKBA (GLUCOPHAGE) 500 MG tablet 1,000 mg in the morning and 1,000 mg in the evening. Take withmeals. 0 08/07/2021 ActiveStart: 01-12-2017 End: 86-65-1752deji 1 tablet by mouth twice dailyMetformin 500 [...] not crush, chew, or split. 0 Active Gkupfoingvlw-Ix-Ckgq-Minerals (Multiple Vitamin, Womens) Tablet (5 sources)Start: 01-12-2017 End: 67-97-5999Ozfnvrxkqyys-Ja-Zemk-Cdzwovqd (Multiple Vitamin, Womens) Tablet Discontinued PO Daily January 1:00am January 15, 2017 2:23pm pregabalin 75 mg oral capsule (20 sources)Start: 10-19-2024 End: 76-52-8998pbwl 2 capsules by mouth once daily at bedtimePregabalin 75 mg capsule Discontinued 150 MG PO Daily at bedtime October 19, 2024 11:58am October 19, 2024 12:14pmStart: 09-24-2024 End: 63-30-0050rrjx 1 capsule by mouth three times dailyPregabalin 75 mg capsule Discontinued 75 MG PO Three times daily October 19, 2024 7:56am October 19, 2024 12:05pmStart: 09-05-2023 End: 44-77-5315mxla 1 capsule by mouth twice dailyPregabalin 75 mg capsule Discontinued 75 MG PO Twice daily October 19, 2024 12:13pm October 19, 2024 12:23pmStart: 03-21-2023 End: 05-31-1539gllg 1 capsule by mouth in the morning, [...] capsule 0 03/21/2023 06/19/2023 ActiveStart: 01-12-2017 End: 25-54-7063wgeo 1 capsule by mouth once dailyPregabalin 50 mg capsule Discontinued 50 MG PO Daily January 12, 2017 1:00am May 28, 2024 1:24pm back painStart: 01-12-2017 End: 65-54-1034aojr 2 capsules by mouth at bedtimePregabalin 50 mg capsule Discontinued 100 MG PO Bedtime January 12, 2017 1:00am May 28, 2024 1:23pm back painStart: 13-26-4343rojl 100 mg by mouth at bedtimePregabalin Active 100 MG PO Bedtime January 12, 2017 1:00am End: 97-03-2704mkhh 1 capsule by mouth every eight hoursLyrica 50 MG 1 capsule Orally Three times a day Activetake 1 capsule by mouth twice dailypregabalin (LYRICA) 50 MG capsule Lyrica 50 mg capsule Take 1 capsule twice a day by oral route. 0 Activerizatriptan 10 mg oral tablet (20 sources)Serotonin-1b and Serotonin-1d Receptor AgonistStart: 05-28-2024 End: 57-07-4935nidq 1 tablet by mouth every two hoursRizatriptan (Maxalt) 10 mg tablet Discontinued 0 PO .COMPLEX May 28, 2024 12:00am November 1:17pm take 1 tab at onset of headache; if no relief may repeat 1 tab after at least 2 hrs; max = 3 tabs/24 hr POStart: 05-21-2023 End: 29-09-0992hkbrqsozyrm (Maxalt) 10 MG tablet Indications: Migraine with aura and without status migrainosus, not intractable Take 1 tablet (10 mg) by mouth 1 (one) time if needed for migraine May repeat in 2 hours if unresolved. Do not exceed 30 mg in 24 hours. 9 tablet 12/17/2023 Active1 mg dose 1.5 ml semaglutide 1.34 mg/ml pen injector (12 sources)Start: 03-30-2024 End: 53-33-1172xvuxoo 2 mg by subcutaneous injection every weeksemaglutide (Ozempic) 2 MG/1.5ML solution pen-injector Indications: Type 2 diabetes mellitus with diabetic microalbuminuria, without long-term current use of insulin (CMS/HCC) Inject 2 mg under the skin 1 (one) time per week 2 each 5 03/30/2024 05/19/2024 Discontinued (Therapy completed)semaglutide (Ozempic, 1 MG/DOSE,) 4 MG/3ML solution pen-injector (15 sources)Start: 10-03-2023 End: 32-20-8292afnmbj 1 mg by subcutaneous injection every weeksemaglutide (Ozempic, 1 MG/DOSE,) 4 MG/3ML solution pen-injector Indications: Type 2 diabetes mellitus without complication, without long-term current use of insulin (CMS/HCC) Inject 1 mg under the skin 1 (one) time per week 9 mL 1 10/03/2023 12/31/2023 Discontinued (Med list cleanup)Start: 10-03-2023 End: 36-99-0521tdxibr 1 mg by subcutaneous injection every weeksemaglutide (Ozempic, 1 MG/DOSE,) 4 MG/3ML solution pen-injector Indications: Type 2 diabetes mellitus without complication, without long-term current use of insulin (CMS/HCC) Inject 1 mg under the skin 1 (one) time per week 9 mL 1 10/03/2023 01/01/2024 ActiveStart: 07-04-2023 End: 66-24-5574pxhnqq 1 mg by subcutaneous injection every weeksemaglutide (Ozempic, 1 MG/DOSE,) 4 MG/3ML solution pen-injector Indications: Type 2 diabetes mellitus without complication, without long-term current use of insulin (CMS/HCC) Inject 1 mg under the skin 1 (one) time per week 9 mL 1 07/04/2023 10/03/2023 Discontinued (Reorder)Start: 10-62-5534qinext 1 mg by subcutaneous injection every weeksemaglutide (Ozempic, 1 MG/DOSE,) 4 MG/3ML solution pen- injector Indications: Type 2 diabetes mellitus without complication, without long-term current use of insulin (CMS/HCC) Inject 1 mg under the skin 1 (one) time per week 9 mL 1 07/04/2023 ActiveStart: 01-29-2023 End: 03-61-7721nfloyn 1 mg by subcutaneous injection every weeksemaglutide (Ozempic, 1 MG/DOSE,) 4 MG/3ML solution pen-injector Indications: Type 2 diabetes mellitus without complication, without long-term current use of insulin (CMS/HCC) Inject 1 mg under the skin 1 (one) time per week 9 mL 0 01/29/2023 04/29/2023 Activetriamcinolone acetonide 40 mg/ml injectable suspension (3 sources)CorticosteroidStart: 59-01-8584Halaggm-40 Mar, 20 mgStart: 28-70-3660Kmwqjib-40 Jan, 30 mg Problems Active Problems Problem ClassificationProblemDateDocumented DateEpisodic/ChronicAcute and unspecified renal failure (5 sources)Acute renal failure syndrome; Translations: [Acute kidney failure, unspecified]35-95-7989LstmmvfgIxtpupd on above:Problem List clean-up per request of Phys. EHR CmteDiabetes mellitus with complications (20 sources)Polyneuropathy due to type 2 diabetes mellitus; Translations: [Type 2 diabetes mellitus with diabetic polyneuropathy]Onset: [id number] ChronicDiabetes mellitus without complication (13 sources)Type 2 diabetes mellitus without complications; Translations: [Type 2 diabetes mellitus without complication]Onset: 14-82-5325NwkblxeEgezulkve of lipid metabolism (20 sources)Hyperlipidemia; Translations: [Other hyperlipidemia]Onset: [id number] disorders (8 sources)Gastroesophageal reflux disease without esophagitis; Translations: [Gastro-esophageal reflux disease without esophagitis]32-33-0335FibmmeiJwkjubvyj hypertension (20 sources)Essential (primary) hypertension; Translations: [Hypertensive disorder]Onset: 337780-97-8257ZbeidriPyizskwdhlcrh symptoms and ill- defined conditions (20 sources)Incontinence; Translations: [Mixed incontinence]Onset: 10-03-2023 74-04-5118SnfamkaFobv and other crystal arthropathies (20 sources)Gout; Translations: [Gout, unspecified]Onset: 27-11-0247Fcerqmp Headache; including migraine (20 sources)Migraine with aura; Translations: [Migraine with aura, not intractable, without status migrainosus]Onset: 523988-53-8879Tcekczn Miscellaneous mental health disorders (4 sources)Primary insomnia; Translations: [Primary insomnia]84-62-1945Fcgjkiv Nutritional deficiencies (4 sources)Vitamin D deficiency; Translations: [Vitamin D deficiency, unspecified]00-98-3191AyioprcTzqordrlzunsbe (17 sources)Bilateral primary osteoarthritis of knee; Translations: [Arthritis of first carpometacarpal joint of left hand]Onset: 27-38-6456MwsimjlAegmplvvciue (2 sources)Osteoporosis; Translations: [Age-related osteoporosis without current pathological fracture]97-40-1328LkcegzjMeput congenital anomalies (2 sources)Non-neoplastic nevus; Translations: [Congenital non-neoplastic nevus] 29-10-9439SzjpbxrItcur connective tissue disease (2 sources)Pain in left handEpisodicOther connective tissue disease (1 source)Personal history of other diseases of the musculoskeletal system and connective tissueEpisodicOther endocrine disorders (1 source)Hormone level - qhxwrxo41-70-1918BlghwwbpJdaxt hereditary and degenerative nervous system conditions (5 sources)Restless legs; Translations: [Restless legs syndrome]01-23-2023 ChronicComment on above:Problem List clean-up per request of Phys. EHR CmteOther nervous system disorders (1 source)Other chronic pain; Translations: [OTHER CHRONIC PAIN]Onset: 90-46-1893ZoiixttFxksk nervous system disorders (5 sources)Numbness of face; Translations: [Anesthesia of skin]01-23-2023 EpisodicComment on above:Problem List clean-up per request of Phys. EHR Cmte Other non-traumatic joint disorders (4 sources)Pain in right wristEpisodicOther non-traumatic joint disorders (4 sources)Pain of left wrist; Translations: [Pain in left wrist]11-23-2024 EpisodicOther nutritional; endocrine; and metabolic disorders (20 sources)Hypercalcemia; Translations: [Hypercalcemia]Onset: 05-19-2024 41-33-4059EisbptfLpulbjh on above:Problem List clean-up per request of Phys. EHR CmteOther nutritional; endocrine; and metabolic disorders (20 sources)Obesity caused by energy imbalance; Translations: [Morbid (severe) obesity due to excess calories]Onset: 379797-92-6970HmihecpDejiq nutritional; endocrine; and metabolic disorders (20 sources)Body mass index 40+ - severely obese; Translations: [Body mass index (BMI) 40.0-44.9, adult]Onset: 461175-34-2368JxijuusBbjoq nutritional; endocrine; and metabolic disorders (20 sources)Body mass index 30+ - obesity; Translations: [Body mass index (BMI) 39.0-39.9, adult]Onset: 388133-20-2986ArcgvjgQpqqr nutritional; endocrine; and metabolic disorders (7 sources)Morbid obesity; Translations: [Morbid (severe) obesity due to excess calories]78-45-9597XpewideCjlme nutritional; endocrine; and metabolic disorders (2 sources)Hypomagnesemia; Translations: [Hypomagnesemia]78-03-0355IjgzhppIonss skin disorders (2 sources)Lentiginosis; Translations: [Other melanin hyperpigmentation] 36-32-9213YxtxxdufLxtxd skin disorders (2 sources)Hidradenitis suppurativa; Translations: [Hidradenitis suppurativa] 09-54-8832NilarmfvYlhocdkx codes; unclassified (20 sources)Obstructive sleep apnea syndrome; Translations: [Obstructive sleep apnea (adult) (pediatric)]Onset: 926447-58-1760XthsluiFwquxbnb codes; unclassified (4 sources)Hypersomnia; Translations: [Hypersomnia, unspecified]12-31-2023 ChronicResidual codes; unclassified (4 sources)Tobacco user; Translations: [Tobacco use]91-69-5814Tqrsuqhy Spondylosis; intervertebral disc disorders; other back problems (11 sources)Spondylosis without myelopathy or radiculopathy, lumbar region; Translations: [Spondylosis without myelopathy or radiculopathy, lumbosacral region]Onset: 16-18-1551LxchhyyMyqvoyxsr-related disorders (20 sources)Tobacco dependence caused by cigarettes; Translations: [Nicotine dependence, cigarettes, uncomplicated]Onset: hronic Unclassified (4 sources)LOW BACK PAIN, UNSPECIFIED; Translations: [LOW BACK PAIN, UNSPECIFIED]Onset: 06-23-2021 Past or Other Problems Problem ClassificationProblemDateDocumented DateEpisodic/ChronicFracture of lower limb (20 sources)Metatarsal bone fracture; Translations: [Fracture of unspecified metatarsal bone(s), unspecified foot, initial encounter for closed fracture] Onset: 219624-95-6293IcfxqixvVeuemehxvfvfk symptoms and ill-defined conditions (20 sources)Increased frequency of urination; Translations: [Frequency of micturition]Onset: 266480-65-3210AvefndejXzddh aftercare (20 sources)Post-discharge follow-up; Translations: [Encounter for follow-up examination after completed treatment for conditions other than malignant neoplasm]Onset: 07-04-2023 Resolved: 619723-94-9753ZdqmdmupMqvzt and unspecified benign neoplasm (20 sources)Melanocytic nevus of trunk; Translations: [Melanocytic nevi of trunk]Onset: 000050-20-6699PgizblhvRbwlr connective tissue disease (4 sources)Other muscle spasm; Translations: [OTHER MUSCLE SPASM]Onset: 55-35-7939VipmbycqMdldo connective tissue disease (4 sources)Pain in right foot; Translations: [PAIN IN RIGHT FOOT]Onset: 19-72-3437BljzvxssAluqn injuries and conditions due to external causes (4 sources)Unspecified injury of right wrist, hand and finger(s), initial encounter; Translations: [UNS INJ RTWRIST HAND FINGERS INIT]Onset: 11-16-2021 EpisodicOther lower respiratory disease (20 sources)Snoring; Translations: [Snoring]Onset: 491701-85-5475Rbhpokux Other non-epithelial cancer of skin (20 sources)Basal cell carcinoma of nose; Translations: [Basal cell carcinoma of skin of nose]Onset: 669957-61-9613QmbsokgrQjumy non-traumatic joint disorders (4 sources)Pain in left knee; Translations: [PAIN IN LEFT KNEE]Onset: 02-16-2022 EpisodicOther non-traumatic joint disorders (20 sources)Pain in right knee; Translations: [Pain in joint, lower leg]Onset: 550859-45-9715PdlmedseYtxaa nutritional; endocrine; and metabolic disorders (20 sources)Hyperuricemia; Translations: [Hyperuricemia without signs of inflammatory arthritis and tophaceous disease]Onset: 05-19-2024 Resolved: 802197-38-1340VgyepatkFylni screening for suspected conditions (not mental disorders or infectious disease) (20 sources)Patient encounter status; Translations: [Encounter for screening for malignant neoplasm of cervix]Onset: 70-33-9441JjvdgjomSxkyp upper respiratory infections (20 sources)Acute upper respiratory infection; Translations: [Acute upper respiratory infection, unspecified]Onset: 01-29-2023 Resolved: 992608-79-0355IhlszjwcGitdzhlz codes; unclassified (20 sources)Bilateral lower limb edema; Translations: [Localized edema]Onset: 875153-54-8492WyjicdkoIcpciketqqg; intervertebral disc disorders; other back problems (20 sources)Muscle spasm of back; Translations: [Sacrococcygeal disorders, not elsewhere classified]Onset: 800193-09-6960WkktcinkVhppqajfdjrf (1 source)LOW BACK PAIN, UNSPECIFIED; Translations: [LOW BACK PAIN, UNSPECIFIED] Onset: 42-76-7823Qpwbmdpyvxqq (2 sources)Acute pain of right ewhk42-20-8818 Results Test NameValueInterpretationReference RangeFacilityLaboratory - Chemistry and Chemistry - challengeOrdered By: Ameena Vera on 34-43-9803Hehtz [Mass/Vol]3.9 mg/dL2.6-6.0[facility] HealthLaboratory - Hematology and Cell countsOrdered By: Ameena Vera on 20-04-0765QPR (Bld) [Velocity]31 mm/hHigh<=30 [facility] HealthHbA1c HPLC (Bld) [Mass fraction]Ordered By: Ameena Vera on 81-12-8250HwY4u (Bld) [Mass fraction]6.5 %[facility] HealthGlomerular filtration rate (GFR) estimation in non- AmericanOrdered By: Kasi Bennett on 56-05-7549YUX/1.73 sq M.predicted among non-blacks MDRD (S/P/Bld) [Vol rate/Area]mL/min/{1.73_m2}>=60 mL/min/1.73m 2 [facility] HealthLaboratory - Chemistry and Chemistry - challengeOrdered By: Kasi Bennett on 08-59-1004Qarmsqm [Mass/Vol]2.9 g/dLLow 3.4-5.0[facility] HealthCalcium [Mass/Vol]8.7 mg/dL8.7-10.3 [facility] HealthChloride [Moles/Vol]106 mmol/O20-940OxyxeqiftMadison HealthCO2 [Moles/Vol]27.8 mmol/L21.0-32.0[facility] HealthCreatinine [Mass/Vol]0.87 mg/dL0.55-1.02[facility] HealthGFR/1.73 sq M.predicted MDRD (S/P/Bld) [Vol rate/Area]mL/min/{1.73_m2} >=60 mL/min/1.73m 2FTrumbull Regional Medical CenterGlucose [Mass/Vol]103 mg/dL 74-106Mad[facility] HealthMagnesium [Mass/Vol]1.4 mg/dLLow1.8-2.4 [facility] HealthPotassium [Moles/Vol]4.4 mmol/L3.5-5.1FSumma Health Barberton Campusodium [Moles/Vol]142 mmol/S350-966ZdfpvffgiMadison HealthUrea nitrogen [Mass/Vol]22.0 mg/dLHigh7.0-18.0Mad[facility] HealthUrea nitrogen/Creatinine [Mass ratio]25.3 mg/mgMadison HealthNo Panel InformationOrdered By: Kasi Bennett on - Hydroxy Vitamin D Total80.4 ng/mLMadison HealthComment on above:<20 ng/mL Vit D dhezqafch24-<30 ng/mL Vit D -610 ng/mL Vit D sufficient>100 ng/mL Potential ToxicityMiscellaneous Test CommentComment. Madison HealthComment on above:Interpretation Intact PTH Calcium (pg/mL) (mg/dL)Normal 15 - 65 8.6 - 10.2Primary Hyperparathyroidism >65 >10.2Secondary Hyperparathyroidism >65 <10.2Non-Parathyroid Hypercalcemia <65 & gt;10.2Hypoparathyroidism <15 < 8.6Non-Parathyroid Hypocalcemia 15 - 65 < 8.6Performed at:[employer] [id number] Director: Berto Gay PhD, Phone: [phone] Hormone (Intact)30 pg/sN55-80CdhtgszabMadison HealthPhosphorus Level3.4 mg/dL2.6-4.7 [facility] Medical Centererum or plasma anion gap determinationOrdered By: Kasi Bennett on 85-84-9459Oavre gap [Moles/Vol]12.6 mmol/LFTrumbull Regional Medical CenterHbA1c (Bld) [Mass fraction]on 48-83-7272Vcobfqugweeynh and review of laboratory resultsAbnormalNORipley County Memorial HospitalNOHI HealthcareLaboratory - Hematology and Cell countson 04-96-4326XuC9m (Bld) [Mass fraction]6.4 %[facility] HealthcareALL BASIC METABOLIC PANELon 79-27-8804Higye gap [Moles/Vol]11.6 mmol/L [facility] HealthcareCalcium [Mass/Vol]9.3 mg/dL8.5 - 10.1 mg/dLNORipley County Memorial Hospital Chloride [Moles/Vol]103 mmol/L98 - 107 mmol/LNOMS HealthcareCO2 [Moles/Vol]33 mmol/LHigh21.0 - 32.0 mmol/LNOMS HealthcareCreatinine [Mass/Vol]0.86 mg/dL0.55 - 1.02 mg/dLNOMS HealthcareGFR/1.73 sq M.predicted CKD-EPI (S/P/Bld) [Vol rate/Area]>60>=60 mL/min/1.73m 2NOMS HealthcareGlucose [Mass/Vol]107 mg/zHMgps19 - 106 mg/dLNOMS HealthcareInterpretation and review of laboratory results AbnormalNOMS HealthcarePotassium [Moles/Vol]4.6 mmol/L3.5 - 5.1 mmol/LNOMS HealthcareSodium [Moles/Vol]143 mmol/L136 - 145 mmol/LNOMS HealthcareTBH EGFR- NON AF YEMENI>60>=60 mL/min/1.73m 2NOMS HealthcareUrea nitrogen [Mass/Vol]20 mg/dLHigh7.0 - 18.0 mg/dLNOMS HealthcareUrea nitrogen/Creatinine [Mass ratio] 23.3 mg/mgNOMS HealthcareCLINISYNCNOMS HealthcareX-ray reportOrdered By: Moustapha Penny on 68-11-6290Fboxm reportMOUNT ST. [facility] [address] [place] [address] XRay Report Signed Patient: Karina De Oliveira MR#: [id number] : 1965 Acct:[id number] Age/Sex: 58 / F ADM Date: 5 [place] [facility]: Type: [facility] Attending Dr: Lui Banks II, MD Copies to: Lui Banks MD~ Ordering Provider: Lui Banks MD Date of Service: 05/28/24 XR/XR knee RT 4V*: M25.561 - Pain in right knee ([id number]) XR/XR pelvis 1-2V: M25.561 - Pain in [...] DO 05/28/24 1523 Signed By: 05/28/24 1524 Madison HealthXR knee RT 4V*on 74-73-9042GN knee RT 4V* [facility] [place] [facility] [address] [place] [address] XRay Report Signed Patient: Karina De Oliveira MR#: [id number] : 1965 Acct:[id number] Age/Sex: 58 / F ADM Date: 05/28/24 [place] [facility] [place]: Type: [facility] Attending Dr: Lui Banks II, MD Copies to: Lui Banks MD Ordering Provider: Lui Banks MD Date of Service: 05/28/24 XR/XR knee RT 4V*: M25.561 - Pain in right knee ([id number]) XR/XR pelvis 1-2V: M25.561 - Pain in [...] Jr, DO 05/28/24 1523 Signed By: 05/28/[address] [place] [address] Physician GroupALL CBC WITH AUTO DIFFon 25-89-6692ISQHXXOYH ABSOLUTE AUTO0.1NOMS HealthcareBasophils/100 WBC (Bld)0.5 % 0.2 - 2.0 %NOMS [facility] Medical CenterEosinophils/100 WBC (Bld)4 %0.9 - 7.0 %[facility] Erythrocyte distribution width (RBC) [Ratio]14.6 %11.0 - 15.0 %NOMRanken Jordan Pediatric Specialty Hospital Hematocrit (Bld) [Volume fraction]41.6 %36.0 - 48.0 %NOMRanken Jordan Pediatric Specialty HospitalHemoglobin (Bld) [Mass/Vol]14.1 g/dL12.0 - 16.0 g/dLNORipley County Memorial HospitalIMMATURE GRANULOCYTES ABS AUTO0.07HighNOHI HealthcareImmature granulocytes/100 WBC (Bld)0.6 %High0.0 - 0.5 %[facility] HospitalInterpretation and review of laboratory resultsAbnormalNOHI HealthcareLYMPHOCYTES ABSOLUTE AUTO3.6NOMS HealthcareLymphocytes/100 WBC (Bld) 32.6 %20.5 - 60.0 %[facility] Memorial HospitalMCH (RBC) [Entitic mass]32.3 pg26.7 - 34.0 pg [facility] HospitalMCHC (RBC) [Mass/Vol]33.9 g/dL29.9 - 35.2 g/dLNORipley County Memorial HospitalMCV (RBC) [Entitic vol]95.2 fL81.0 - 99.0 fLNORipley County Memorial HospitalMONOCYTES ABSOLUTE AUTO 0.8NOMS HealthcareMonocytes/100 WBC (Bld)6.9 %1.7 - 12.0 %[facility] NEUTROPHILS ABSOLUTE AUTO6.2NOMS HealthcareNeutrophils/100 WBC (Bld)55.4 %43.0 - 75.0 %[facility] Memorial HospitalPlatelet mean volume (Bld) [Entitic vol]10.7 fL9.5 - 13.5 fLNORipley County Memorial HospitalTBH EO #0.4NOMS HealthcareTB ACC378RTVF [facility] CenterTB RBC4.37 NOMRanken Jordan Pediatric Specialty HospitalTB WBC11.1HighNORipley County Memorial HospitalCLINISYNCNOMS HealthcareXR Knee - right 3 Viewson 42-82-1883[place]gm[place], [place] [address] XRay Report Signed Patient: KARINA DE OLIVEIRA MR#: [id number] : 1965 Acct:[id number] Age/Sex: 58 / F ADM Date: 05/21/24 Loc: LAB Attending Dr: Ameena Vera [employer] Ordering Physician: Ameena Vera NP Date of Service: 05/21/24 Procedure(s): XR knee RT 3V Accession Number(s): [id number] cc: Ameena Vera NP [facility] [place] [address] Patient Name: KARINA DE OLIVEIRA MRN: [id number] date: 1965 Sex: F Assigned Patient Location: LAB Current Patient Location: LAB Accession/Order Number: [id number] Exam Date: 05/21/2024 13:21 Report Date: 05/21/2024 [...] Penny Jr., D.O.05/21/2024 1:21 PM Dictation Location: [place] [address] Electronically authenticated by: [id number] Y Date: 05/21/2024 13:21 Dictated By: Moustapha Penny M.D. Signed By: 05/21/24 1324 DD/ 1321 TD/TT: Scouring Train Operator:MCKAYLAHRadiology, Radiologist, - 05/21/2024 [place] [address] XRay Report Signed Patient: KARINA DE OLIVEIRA MR#: [id number] : 1965 Acct:[id number] Age/Sex: 58 / F ADM Date: 05/21/24 Loc: LAB Attending Dr: Ameena Vera NP Ordering Physician: Ameena Vera NP Date of Service: 05/21/24 Procedure(s): XR knee RT 3V Accession Number(s): [id number] cc: Ameena Vera NP [place] [id number] Patient Name: KARINA DE OLIVEIRA MRN: [facility]:[id number] date: 1965 Sex: F Assigned Patient Location: LAB Current Patient Location: LAB Accession/Order Number: [id number] Exam Date: 05/21/2024 13:21 Report Date: 05/21/2024 [...] Penny Jr., D.O.05/21/2024 1:21 PM Dictation Location: [place] [address] Electronically authenticated by: [id number] Y Date: 05/21/2024 13:21 Dictated By: Moustapha Penny M.D. Signed By: 05/21/24 1324 DD/ 1321 TD/TT: Scouring Train Operator: CRIS HealthcareRadiology Study observation (narrative)[facility] HospitalXR Knee - right 3 ViewsOrdered By: Radiologist Radiology on 28-25-5070USFGWashington County Memorial Hospital Work Phone: HbA1c (Bld) [Mass fraction]on 96-56-5456Xejdgaotgvqhyd and review of laboratory resultsAbnormalAtrium Health ProvidenceLaboratory - Hematology and Cell countson 64-01-7227NpX1q (Bld) [Mass fraction]6.70 %[facility] Memorial HospitalHbA1c (Bld) [Mass fraction]on 34-48-9475Jxeixshekyflrg and review of laboratory resultsAbnormalCox Walnut Lawn HealthcareLaboratory - Hematology and Cell countson 86-15-7273CfI7u (Bld) [Mass fraction]6.9 %[facility] TOMOSYNTHESIS SCREENING BIon 92-13-1796Q[address] [address] Mammography Report Signed Patient: KARINA DE OLIVEIRA MR#: [id number] : 1965 Acct:[id number] Age/Sex: 58 / F ADM Date: 03/18/24 Loc: MAMMO Attending Dr: RADHA BARCLAY Ordering Physician: RADHA BARCLAY Results: Date of Service: 03/18/24 Follow Up: Procedure(s): MM tomosynthesis screening BI Accession Number(s): [id number] cc: SONAM DRAKE; RADHA BARCLAY Patient Name: KARINA DE OLIVEIRA MR#: [id number] : 1965 Exam Date: 03/18/2024 Ordering Doctor: DR RADHA BARCLAY [facility] RADIOLOGY REPORT PROCEDURE: MM TOMOSYNTHESIS SCREENING BI COMPARISON: MM TOMOSYNTHESIS SCREENING BI, 03/20/2023. MG MAMM SCREEN 3D SALINA CAD, 01/31/2021. MG MAMM SCREEN SALIAN W CAD, 02/02/2020. MG MAMM SALINA SCRN W CAD DIG, 01/22/2013. INDICATIONS: Screening for malignant neoplasm Calculator Name NCI Breast Cancer Risk Assessment Tool 5 Year Breast Cancer Risk 1.30% Lifetime Breast Cancer Risk 6.60% Personal Breast Cancer No Personal Ovarian Cancer No Treatments None Family Cancers Grandfather-maternal with prostate cancer at age 70; Mother with skin cancer at age 71. LOCATION: [facility] BREAST COMPOSITION: There are scattered [...] M.D. Signed By: 03/18/24 1454 DD/ TD/TT: Scouring Train Operator:TBHRadiology, Radiologist, - 03/18/2024 [place] [address] Mammography Report Signed Patient: KARINA DE OLIVEIRA MR#: [id number] : 1965 Acct:[id number] Age/Sex: 58 / F ADM Date: 03/18/24 Loc: MAMMO Attending Dr: RADHA BARCLAY Ordering Physician: RADHA BARCLAY Results: Date of Service: 03/18/24 Follow Up: Procedure(s): MM tomosynthesis screening BI Accession Number(s): [id number] cc: LOCO DRAKE SUSAN Patient Name: KARINA DE OLIVEIRA MR#: [id number] : 1965 Exam Date: 03/18/2024 Ordering Doctor: DR RADHA BARCLAY [facility] RADIOLOGY REPORT PROCEDURE: MM TOMOSYNTHESIS SCREENING [...] skin cancer at age 69. LOCATION: [facility] BREAST COMPOSITION: There are scattered [...] M.D. Signed By: 03/18/241453 DD/ 53 TD/TT: Scouring Train Operator: [facility] HospitalRadiology Study observation (narrative)[facility] TOMOSYNTHESIS SCREENING BIOrdered By: Radiologist Radiology on 49-81-6905[facility] Work Phone: XR FOOT LT MIN 3Von 90-76-1387Fkk[place], [place] [address] XRay Report Signed Patient: KARINA DE OLIVEIRA MR#: [id number] : 1965 Acct:[id number] Age/Sex: 58 / F ADM Date: 01/29/24 Loc: RAD Attending Dr: Sussy Jones D.P.M. Ordering Physician: Sussy Jonse D.P.M. Date of Service: 01/29/24 Procedure(s): XR foot LT min 3V Accession Number(s): [id number] cc: LOCO DRAKE Peter D.P.M. [place] [id number] Patient Name: KARINA DE OLIVEIRA MRN: [id number] date: 1965 Sex: F Assigned Patient Location: RAD Current Patient Location: Accession/Order Number: [id number] Exam Date: 01/29/2024 09:28 Report Date: 01/30/2024 [...] Salter M.D. Signed By: 01/30/2441 DD/ TD/TT: Scouring Train Operator:TBHRadiology, Radiologist, MD - 01/30/2024 [place] [address] XRay Report Signed Patient: KARINA DE OLIVEIRA MR#: [id number] : 1965 Acct:[id number] Age/Sex: 58 / F ADM Date: 01/29/24 Loc: RAD Attending Dr: Sussy Jones D.P.M. Ordering Physician: Sussy Jones D.P.M. Date of Service: 01/29/24 Procedure(s): XR foot LT min 3V Accession Number(s): [id number] cc: LOCO DRAKE Peter D.P.M. [facility] [place] [id number] Patient Name: KARINA DE OLIVEIRA MRN: [id number] date: 1965 Sex: F Assigned Patient Location: [facility] Current Patient Location: Accession/Order Number: [id number] Exam Date: 01/29/2024 09:28 Report Date: 01/30/2024 [...] M.D. Signed By: 01/30/2441 DD/ 7 TD/TT: Scouring Train Operator: [facility] HospitalRadiology Study observation (narrative)[facility] HealthcareXR FOOT LT MIN 3VOrdered By: Radiologist Radiology on 01-05-4618UXISWashington County Memorial Hospital Work Phone: all CBC WITH AUTO DIFFon 84-53-1144VYSLLJVXK ABSOLUTE AUTO0.1NOMS HealthcareBasophils/100 WBC (Bld)0.4 %0.2 - 2.0 %[facility] Healthcare Eosinophils/100 WBC (Bld)3.2 %0.9 - 7.0 %[facility] Memorial HospitalErythrocyte distribution width (RBC) [Ratio]15.6 %High11.0 - 15.0 %[facility] HealthcareHematocrit (Bld) [Volume fraction]42.4 %36.0 - 48.0 %[facility] Memorial HospitalHemoglobin (Bld) [Mass/Vol] 13.9 g/dL12.0 - 16.0 g/dLWashington County Memorial HospitalIMMATURE GRANULOCYTES ABS AUTO0.09High [facility] HospitalImmature granulocytes/100 WBC (Bld)0.7 %High0.0 - 0.5 %[facility] HealthcareInterpretation and review of laboratory resultsAbnormalWashington County Memorial Hospital LYMPHOCYTES ABSOLUTE AUTO3.5NORipley County Memorial HospitalLymphocytes/100 WBC (Bld)27.7 %20.5 - 60.0 %[facility] MonettH (RBC) [Entitic mass]31.4 pg26.7 - 34.0 pgNOCenterPointe HospitalHC (RBC) [Mass/Vol]32.8 g/dL29.9 - 35.2 g/dLCox MonettV (RBC) [Entitic vol]95.7 fL81.0 - 99.0 fLNOMS HealthcareMONOCYTES ABSOLUTE AUTO0.9High NOMS HealthcareMonocytes/100 WBC (Bld)7.4 %1.7 - 12.0 %[facility] NEUTROPHILS ABSOLUTE AUTO7.7HighNOMS HealthcareNeutrophils/100 WBC (Bld)60.6 % 43.0 - 75.0 %NOMS HealthcarePlatelet mean volume (Bld) [Entitic vol]10.9 fL9.5 - 13.5 fLNOMS HealthcareTBH EO #0.4NOMS HealthcareTBH [id number] HealthcareTBH RBC 4.43NOMS HealthcareTBH WBC12.8HighNOMS HealthcareCLINISYNCNOMS HealthcareXR FOOT LT MIN 3Von 00-75-7118RabAl[place], [place] [address] XRay Report Signed Patient: KARINA DE OLIVEIRA MR#: [id number] : 1965 Acct:[id number] Age/Sex: 58 / F ADM Date: 12/18/23 Loc: RAD Attending Dr: Sussy Jones D.P.M. Ordering Physician: Sussy Jones D.P.M. Date of Service: 12/18/23 Procedure(s): XR foot LT min 3V Accession Number(s): [id number] cc: Shaikh Erica Connelly; Sussy Jones D.P.M. [facility] [place] [address] Patient Name: KARINA DE OLIVEIRA MRN: [id number] date: 1965 Sex: F Assigned Patient Location: [facility] Current Patient Location: PT Accession/Order Number: [id number] Exam Date: 12/18/2023 10:58 Report Date: 12/23/2023 [...] Signed By: 12/23/23 0741 DD/ 0739 TD/TT: Scouring Train Operator:TBHRadiology, Radiologist, - 12/23/2023 [place] [address] XRay Report Signed Patient: KARINA DE OLIVEIRA MR#: [id number] : 1965 Acct:[id number] Age/Sex: 58 / F ADM Date: 12/18/23 Loc: RAD Attending Dr: Sussy Jones D.P.M. Ordering Physician: Sussy Jones D.P.M. Date of Service: 12/18/23 Procedure(s): XR foot LT min 3V Accession Number(s): [id number] cc: Shaikh Erica Connelly; Sussy Jones D.P.M. [facility] [place] [id number] Patient Name: KARINA DE OLIVEIRA MRN: [id number] date: 1965 Sex: F Assigned Patient Location: [facility] Current Patient Location: PT Accession/Order Number: [id number] Exam Date: 12/18/2023 10:58 Report Date: 12/23/2023 [...] Wang M.D. Signed By: 12/23/2341 DD/ TD/TT: Scouring Train Operator: CRIS HealthcareRadiology Study observation (narrative)[facility] HealthcareXR FOOT LT MIN 3VOrdered By: Radiologist Radiology on 48-60-4568RJDK Healthcare Work Phone: XR FOOT LT MIN 3Von 84-45-6019FojAl[place], [place] [address] XRay Report Signed Patient: KARINA DE OLIVEIRA MR#: [id number] : 1965 Acct:[id number] Age/Sex: 57 / F ADM Date: 10/16/23 Loc: EC Attending Dr: Sussy Jones D.P.M. Ordering Physician: Sussy Jones D.P.M. Date of Service: 10/16/23 Procedure(s): XR foot LT min 3V Accession Number(s): [id number] cc: Shaikh Erica Connelly; Sussy Jones D.P.M. [place] [address] Patient Name: KARINA DE OLIVEIRA MRN: [id number] date: 1965 Sex: F Assigned Patient Location: Current Patient Location: Accession/Order Number: [id number] Exam Date: 10/16/2023 11:20 Report Date: 10/17/2023 [...] Signed By: 10/17/23 0701 DD/ 0658 TD/TT: Scouring Train Operator:TBHRadiology, Radiologist, - 10/17/2023 [place] [address] XRay Report Signed Patient: KARINA DE OLIVEIRA MR#: [id number] : 1965 Acct:[id number] Age/Sex: 57 / F ADM Date: 10/16/23 Loc: EC Attending Dr: Sussy Jones D.P.M. Ordering Physician: Sussy Jones D.P.M. Date of Service: 10/16/23 Procedure(s): XR foot LT min 3V Accession Number(s): [id number] cc: Shaikh Erica Connelly; Sussy Jones D.P.M. The [place] [address] Patient Name: KARINA DE OLIVEIRA MRN: [id number]:[id number] date: 1965 Sex: F Assigned Patient Location: Current Patient Location: Accession/Order Number: [id number] Exam Date: 10/16/2023 11:20 Report Date: 10/17/2023 [...] M.D. Signed By: 10/17/23 07 DD/ TD/TT: Scouring Train Operator: CRIS HealthcareRadiology Study observation (narrative)[facility] HealthcareXR FOOT LT MIN 3VOrdered By: Radiologist Radiology on 01-36-8336[facility] Work Phone: ct FOOT LT WO CONon 74-25-3663[place], [place] [address] [place] Scan Report Signed Patient: KARINA DE OLIVEIRA MR#: [id number] : 1965 Acct:[id number] Age/Sex: 57 / F ADM Date: 09/12/23 Loc: CT Attending Dr: Sussy Jones D.P.M. Ordering Physician: Sussy Jones D.P.M. Date of Service: 09/12/23 Procedure(s): CT foot LT wo con Accession Number(s): [id number] cc: Shaikh Erica Connelly [place] [id number] Patient Name: KARINA DE OLIVEIRA MRN: [id number]:[id number] date: 1965 Sex: F Assigned Patient Location: CT Current Patient Location: Accession/Order Number: [id number] Exam Date: 09/12/2023 12:57 Report Date: 09/13/2023 [...] Signed By: 09/13/23 0505 DD/ 0502 TD/TT: Scouring Train Operator:TBHRadiology, Radiologist, - 09/13/2023 [place] [address] CT Scan Report Signed Patient: KARINA DE OLIVEIRA MR#: [id number] : 1965 Acct:[id number] Age/Sex: 57 / F ADM Date: 09/12/23 Loc: CT Attending Dr: Sussy Jones D.P.M. Ordering Physician: Sussy Jones D.P.M. Date of Service: 09/12/23 Procedure(s): CT foot LT wo con Accession Number(s): [id number] cc: Shaikh Erica Connelly The [place] [id number] Patient Name: KARINA DE OLIVEIRA MRN: [id number] date: 1965 Sex: F Assigned Patient Location: CT Current Patient Location: Accession/Order Number: [id number] Exam Date: 09/12/2023 12:57 Report Date: 09/13/2023 [...] Signed By: 09/13/23 050 DD/ 050 TD/TT: Scouring Train Operator: CRIS HealthcareRadiology Study observation (narrative)[facility] HealthcareCT FOOT LT WO CONOrdered By: Radiologist Radiology on 93-81-2132[facility] Work Phone: XR FOOT LT MIN 3Von 37-92-1879[place], [place] [address] XRay Report Signed Patient: KARINA DE OLIVEIRA MR#: [id number] : 1965 Acct:[id number] Age/Sex: 57 / F ADM Date: 09/03/23 Loc: EC Attending Dr: Sussy Jones D.P.M. Ordering Physician: Sussy Jones D.P.M. Date of Service: 09/03/23 Procedure(s): XR foot LT min 3V Accession Number(s): [id number] cc: Shaikh Erica Connelly; Sussy Jones D.P.M. The [place] [id number] Patient Name: KARINA DE OLIVEIRA MRN: [id number]:[id number] date: 1965 Sex: F Assigned Patient Location: EC Current Patient Location: Accession/Order Number: [id number] Exam Date: 09/03/2023 15:15 Report Date: 09/04/2023 [...] Signed By: 09/04/23 0752 DD/ 0749 TD/TT: Scouring Train Operator:TBHRadiology, Radiologist, MD - 09/04/2023 [place] [address] XRay Report Signed Patient: KARINA DE OLIVEIRA MR#: [id number] : 1965 Acct:[id number] Age/Sex: 57 / F ADM Date: 09/03/23 Loc: EC Attending Dr: Sussy Jones D.P.M. Ordering Physician: Sussy Jones D.P.M. Date of Service: 09/03/23 Procedure(s): XR foot LT min 3V Accession Number(s): [id number] cc: Shaikh Erica Connelly; Sussy Jones D.P.M. The [place] [address] Patient Name: KARINA DE OLIVEIRA MRN: [id number] date: 1965 Sex: F Assigned Patient Location: Current Patient Location: Accession/Order Number: [id number] Exam Date: 09/03/2023 15:15 Report Date: 09/04/2023 [...] Signed By: 09/04/23 0752 DD/ 0749 TD/TT: Scouring Train Operator: CRIS HealthcareRadiology Study observation (narrative)[facility] HealthcareXR FOOT LT MIN 3VOrdered By: Radiologist Radiology on 36-54-3903[facility] Work Phone: XR FOOT LT MIN 3Von 96-93-6138[place]db[place], [place] [address] XRay Report Signed Patient: KARINA DE OLIVEIRA MR#: [id number] : 1965 Acct:[id number] Age/Sex: 57 / F ADM Date: 08/13/23 Loc: EC Attending Dr: Sussy Jones D.P.M. Ordering Physician: Sussy Jones D.P.M. Date of Service: 08/13/23 Procedure(s): XR foot LT min 3V Accession Number(s): [id number] cc: Shaikh Erica Connelly; Sussy Jones D.P.M. The [place] [address] Patient Name: KARINA DE OLIVEIRA MRN: [facility]:[id number] date: 1965 Sex: F Assigned Patient Location: Current Patient Location: Accession/Order Number: [id number] Exam Date: 08/13/2023 14:05 Report Date: 08/14/2023 [...] Signed By: 08/14/23 1532 DD/ 153 TD/TT: Scouring Train Operator:TBHRadiology, Radiologist, MD - 08/14/2023 [place] [address] XRay Report Signed Patient: KARINA DE OLIVEIRA MR#: [id number] : 1965 Acct:[id number] Age/Sex: 57 / F ADM Date: 08/13/23 Loc: EC Attending Dr: Sussy Jones D.P.M. Ordering Physician: Sussy Jones D.P.M. Date of Service: 08/13/23 Procedure(s): XR foot LT min 3V Accession Number(s): [id number] cc: Shaikh Erica Connelly; Sussy Jones D.P.M. [place] [address] Patient Name: KARINA DE OLIVEIRA MRN: [id number] date: 1965 Sex: F Assigned Patient Location: Current Patient Location: Accession/Order Number: [id number] Exam Date: 08/13/2023 14:05 Report Date: 08/14/2023 [...] Signed By: 08/14/23 1532 DD/ 153 TD/TT: Scouring Train Operator: CRIS HealthcareRadiology Study observation (narrative)[facility] HealthcareXR FOOT LT MIN 3VOrdered By: Radiologist Radiology on 40-72-6431[facility] Work Phone: XR TIBIA FIBULA LT 2Von 02-93-0359[place] [address] XRay Report Signed Patient: KARINA DE OLIVEIRA MR#: [id number] : 1965 Acct:[id number] Age/Sex: 57 / F ADM Date: 08/13/23 Loc: EC Attending Dr: Sussy Jones D.P.M. Ordering Physician: Sussy Jones D.P.M. Date of Service: 08/13/23 Procedure(s): XR tibia fibula LT 2V Accession Number(s): [id number] cc: Shaikh Erica Connelly; Sussy Jones D.P.M. The [place] [id number] Patient Name: KARINA DE OLIVEIRA MRN: [id number] date: 1965 Sex: F Assigned Patient Location: Current Patient Location: Accession/Order Number: [id number] Exam Date: 08/13/2023 14:05 Report Date: 08/14/2023 [...] Signed By: 08/14/23 1529 DD/ 1527 TD/TT: Scouring Train Operator:TBHRadiology, Radiologist, - 08/14/2023 The [place] [id number] XRay Report Signed Patient: KARINA DE OLIVEIRA MR#: [id number] : 1965 Acct:[id number] Age/Sex: 57 / F ADM Date: 08/13/23 Loc: EC Attending Dr: Sussy Jones D.P.M. Ordering Physician: Sussy Jones D.P.M. Date of Service: 08/13/23 Procedure(s): XR tibia fibula LT 2V Accession Number(s): [id number] cc: Shaikh Erica Connelly; Sussy Jones D.P.M. [place] [address] Patient Name: KARINA DE OLIVEIRA MRN: [id number]:[id number] date: 1965 Sex: F Assigned Patient Location: Current Patient Location: Accession/Order Number: [id number] Exam Date: 08/13/2023 14:05 Report Date: 08/14/2023 [...] Signed By: 08/14/23 1529 DD/ 1527 TD/TT: Scouring Train Operator: CRIS HealthcareRadiology Study observation (narrative)[facility] HealthcareXR TIBIA FIBULA LT 2VOrdered By: Radiologist Radiology on 18-48-8355[facility] Work Phone: XR FOOT LT MIN 3Von 25-38-1382[place], [place] [address] XRay Report Signed Patient: KARINA DE OLIVEIRA MR#: [id number] : 1965 Acct:[id number] Age/Sex: 57 / F ADM Date: 07/24/23 Loc: EC Attending Dr: Sussy Jones D.P.M. Ordering Physician: Sussy Jones D.P.M. Date of Service: 07/24/23 Procedure(s): XR foot LT min 3V Accession Number(s): [id number] cc: Shaikh Erica Connelly; Sussy Jones D.P.M. The [place] [address] Patient Name: KARINA DE OLIVEIRA MRN: [id number] date: 1965 Sex: F Assigned Patient Location: Current Patient Location: Accession/Order Number: [id number] Exam Date: 07/24/2023 13:37 Report Date: 07/24/2023 [...] Signed By: 07/24/23 1553 DD/ 1551 TD/TT: Scouring Train Operator:ALEXadiology, Radiologist, - 07/24/2023 [place] [address] XRay Report Signed Patient: KARINA DE OLIVEIRA MR#: [id number] : 1965 Acct:[id number] Age/Sex: 57 / F ADM Date: 07/24/23 Loc: EC Attending Dr: Sussy Jones D.P.M. Ordering Physician: Sussy Jones D.P.M. Date of Service: 07/24/23 Procedure(s): XR foot LT min 3V Accession Number(s): [id number] cc: Shaikh Erica Connelly; Sussy Jones D.P.M. [place] [address] Patient Name: KARINA DE OLIVEIRA MRN: [id number] date: 1965 Sex: F Assigned Patient Location: Current Patient Location: Accession/Order Number: [id number] Exam Date: 07/24/2023 13:37 Report Date: 07/24/2023 [...] Signed By: 07/24/23 1553 DD/ 155 TD/TT: Scouring Train Operator: CRIS HealthcareRadiology Study observation (narrative)[facility] HealthcareXR FOOT LT MIN 3VOrdered By: Radiologist Radiology on 55-02-1067[facility] Work Phone: XR FOOT LT MIN 3Von 51-03-47[address] [address] XRay Report Signed Patient: KARINA DE OLIVEIRA MR#: [id number] : 1965 Acct:[id number] Age/Sex: 57 / F ADM Date: 07/03/23 Loc: EC Attending Dr: Sussy Jones D.P.M. Ordering Physician: Sussy Jones D.P.M. Date of Service: 07/03/23 Procedure(s): XR foot LT min 3V Accession Number(s): [id number] cc: Shaikh Erica Connelly; Sussy Jones D.P.M. The [address] [address] Patient Name: KARINA DE OLIVEIRA MRN: [id number] date: 1965 Sex: F Assigned Patient Location: Current Patient Location: Accession/Order Number: [id number] Exam Date: 07/03/2023 10:54 Report Date: 07/03/2023 [...] Signed By: 07/03/23 1407 DD/ 03 TD/TT: Scouring Train Operator:TBHRadiology, Radiologist, - 07/03/2023 [place] [address] XRay Report Signed Patient: KARINA DE OLIVEIRA MR#: [id number] : 1965 Acct:[id number] Age/Sex: 57 / F ADM Date: 07/03/23 Loc: EC Attending Dr: Sussy Jones D.P.M. Ordering Physician: Sussy Jones D.P.M. Date of Service: 07/03/23 Procedure(s): XR foot LT min 3V Accession Number(s): [id number] cc: Shaikh Erica Connelly; Sussy Jones D.P.M. [place] [address] Patient Name: KARINA DE OLIVEIRA MRN: [id number] date: 1965 Sex: F Assigned Patient Location: Current Patient Location: Accession/Order Number: [id number] Exam Date: 07/03/2023 10:54 Report Date: 07/03/2023 [...] Signed By: 07/03/23 1407 DD/ 03 TD/TT: Scouring Train Operator: CRIS HealthcareRadiology Study observation (narrative)[facility] HealthcareXR FOOT LT MIN 3VOrdered By: Radiologist Radiology on 72-12-6300[facility] Work Phone: ecG 12-LEADon 30-06-1140[place], [place] [address] Electrocardiograph Report Signed Patient: KARINA DE OLIVEIRA MR#: [id number] : 1965 Acct:[id number] Age/Sex: 57 / F ADM Date: 06/08/23 Loc: MS 231-[address]: Rivas Pacheco M.D. Ordering Physician: Anahi Soriano Date of Service: 06/08/23 Procedure(s): ECG 12 lead Accession Number(s): [id number] cc: The [facility] Test Date: 2023-06-08 Pat Name: KARINA DE OLIVEIRA Department: Room: - Gender: Female Foot Tender: : 1965 Requested By: SHAIKH MARICEL Order Number: [id number] Reading MD: RIVAS PACHECO Measurements Intervals [place] Rate: 100 P: 69 NE: 170 QRS: 266 QRSD: 80 T: 58 [...] Signed By: 06/09/23 0712 DD/ 1537 TD/TT: Scouring Train Operator:TBHRadiology, Radiologist, MD - 06/09/2023 The [place] [id number] Electrocardiograph Report Signed Patient: KARINA DE OLIVEIRA MR#: [id number] : 1965 Acct:[id number] Age/Sex: 57 / F ADM Date: 06/08/23 Loc: MS 231-[address]: Rivas Pacheco M.D. Ordering Physician: Anahi Soriano Date of Service: 06/08/23 Procedure(s): ECG 12 lead Accession Number(s): [id number] cc: [facility] Test Date: 2023-06-08 Pat Name: KARINA DE OLIVEIRA Department: Room: - Gender: Female Foot Tender: : 1965 Requested By: SHAIKH MARICEL Order Number: [id number] Reading MD: RIVAS PACHECO Measurements Intervals [place] Rate: 100 P: 69 NE: 170 QRS: 266 QRSD: 80 T: 58 [...] Signed By: 06/09/23 0712 DD/ 1537 TD/TT: Scouring Train Operator: CRIS [place] 12-LEADOrdered By: Radiologist Radiology on 36-89-5033QCVP [facility] Work Phone: ct FOOT LT WO CONon 07-20-1865[address] [address] [address] Scan Report Signed Patient: KARINA DE OLIVEIRA MR#: [id number] : 1965 Acct:[id number] Age/Sex: 57 / F ADM Date: 06/08/23 Loc: MS 231-[address]: Rivas Pacheco M.D. Ordering Physician: Anahi Soriano Date of Service: 06/08/23 Procedure(s): CT foot LT wo con Accession Number(s): [id number] cc: Shaikh Erica Connelly [address] [address] Patient Name: KARINA DE OLIVEIRA MRN: [id number] date: 1965 Sex: F Assigned Patient Location: ER Current Patient Location: MS Accession/Order Number: [id number] Exam Date: 06/08/2023 17:15 Report Date: 06/08/2023 [...] Muñoz M.D. Signed By: 06/08/231831 DD/ TD/TT: Scouring Train Operator:TBHRadiology, Radiologist, MD - 06/08/2023 [place] [address] CT Scan Report Signed Patient: KARINA DE OLIVEIRA MR#: [id number] : 1965 Acct:[id number] Age/Sex: 57 / F ADM Date: 06/08/23 Loc: MS 231-[address]: Rivas Pacheco M.D. Ordering Physician: Anahi Soriano Date of Service: 06/08/23 Procedure(s): CT foot LT wo con Accession Number(s): [id number] cc: Shaikh Erica Connelly [address] [address] Patient Name: KARINA DE OLIVEIRA MRN: [id number] date: 1965 Sex: F Assigned Patient Location: ER Current Patient Location: MS Accession/Order Number: [id number] Exam Date: 06/08/2023 17:15 Report Date: 06/08/2023 [...] M.D. Signed By: 06/08/231831 DD/ 28 TD/TT: Scouring Train Operator: CRIS HealthcareRadiology Study observation (narrative)[facility] HealthcareCT FOOT LT WO CONOrdered By: Radiologist Radiology on 28-30-3367[facility] Work Phone: ECG 12-LEADon 40-96-6337Hjylqgiax Study observation (narrative)[facility] LUMBAR SPINE WO CONon 95-97-8777[place], [place] [address] Magnetic Resonance Report Signed Patient: KARINA DE OLIVEIRA MR#: [id number] : 1965 Acct:[id number] Age/Sex: 57 / F ADM Date: 06/06/23 Loc: MRI Attending Dr: James Tijerina NP Ordering Physician: James Tijerina NP Date of Service: 06/06/23 Procedure(s): MR lumbar spine wo con Accession Number(s): [id number] cc: Shaikh Erica Connelly; James Tijerina NP [place] [address] Patient Name: KARINA DE OLIVEIRA MRN: [id number] date: 1965 Sex: F Assigned Patient Location: MRI Current Patient Location: MRI Accession/Order Number: [id number] Exam Date: 06/06/2023 12:30 Report Date: 06/06/2023 [...] Fritz M.D. Signed By: 06/06/231650 DD/ TD/TT: Scouring Train Operator:TBHRadiology, Radiologist, - 06/06/2023 [place] [address] Magnetic Resonance Report Signed Patient: KARINA DE OLIVEIRA MR#: [id number] : 1965 Acct:[id number] Age/Sex: 57 / F ADM Date: 06/06/23 Loc: MRI Attending Dr: James Tijerina NP Ordering Physician: James Tijerina NP Date of Service: 06/06/23 Procedure(s): MR lumbar spine wo con Accession Number(s): [id number] cc: Shaikh Erica Connelly; James Tijerina NP [address] [address] Patient Name: KARINA DE OLIVEIRA MRN: [id number] date: 1965 Sex: F Assigned Patient Location: MRI Current Patient Location: MRI Accession/Order Number: [id number] Exam Date: 06/06/2023 12:30 Report Date: 06/06/2023 [...] M.D. Signed By: 06/06/231650 DD/ 48 TD/TT: Scouring Train Operator: [facility] HospitalRadiology Study observation (narrative)[facility] LUMBAR SPINE WO CONOrdered By: Radiologist Radiology on 02-39-7607[facility]ERN [employer] Work Phone: XR LUMBAR SPINE 6V W BENDINGon 89-12-9352[place], [place] [address] XRay Report Signed Patient: KARINA DE OLIVEIRA MR#: [id number] : 1965 Acct:[id number] Age/Sex: 57 / F ADM Date: 05/22/23 Loc: RAD Attending Dr: James Tijerina [employer] Ordering Physician: James Tijerina NP Date of Service: 05/22/23 Procedure(s): XR lumbar spine 6V w bending Accession Number(s): [id number] cc: Shaikh Erica Connelly; James Tijerina NP [place] [id number] Patient Name: KARINA DE OLIVEIRA MRN: [id number] date: 1965 Sex: F Assigned Patient Location: [facility] Current Patient Location: RAD Accession/Order Number: [id number] Exam Date: 05/22/2023 12:18 Report Date: 05/22/2023 [...] Signed By: 05/22/23 1551 DD/ 1548 TD/TT: Scouring Train Operator:TBHRadiology, Radiologist, MD - 05/22/2023 [place] [address] XRay Report Signed Patient: KARINA DE OLIVEIRA MR#: [id number] : 1965 Acct:[id number] Age/Sex: 57 / F ADM Date: 05/22/23 Loc: [place] Attending Dr: James Tijerina NP Ordering Physician: James Tijerina NP Date of Service: 05/22/23 Procedure(s): XR lumbar spine 6V w bending Accession Number(s): [id number] cc: Shaikh Erica Connelly; James Tijerina NP The [place] [address] Patient Name: KARINA DE OLIVEIRA MRN: [id number] date: 1965 Sex: F Assigned Patient Location: [facility] Current Patient Location: [facility] Accession/Order Number: [id number] Exam Date: 05/22/2023 12:18 Report Date: 05/22/2023 [...] By: Ryan Wang M.D. Signed By: 05/22/23 1553 DD/ 47 TD/TT: Scouring Train Operator: [facility] ASYLUMS HealthcareRadiology Study observation (narrative)[facility] HospitalXR LUMBAR SPINE 6V W BENDINGOrdered By: Radiologist Radiology on 09-42-3795ZYHW [facility] Work Phone: aLL LIPID PROFILE (FASTING)on 06-18-9639UIBT HDL RATIO 2.3NOHI HealthcareComment on above:3.3 - 4.4 LOW RISK 4.4 - 7.1 AVERAGE RISK 7.1 - 11.0 MODERATE RISK >11.0 HIGH RISK Cholesterol [Mass/Vol]110 mg/dLNINF - 200 mg/dLWashington County Memorial HospitalCholesterol in HDL [Mass/Vol]47 mg/dL40 - 60 mg/dLNOHI HealthcareComment on above:> or =60 mg/dl - LOW CARDIOVASCULAR RISK <40 mg/dl - HIGH CARDIOVASCULAR RISK Magnesium [Mass/Vol]42.4 mg/dLNOHI HealthcareComment on above:<100 mg/dl OPTIMAL 100-129 mg/dl NEAR OR ABOVE OPTIMAL 130-159 mg/dl BORDERLINE HIGH 160-189 mg/dl HIGH >190 mg/dl VERY HIGH Magnesium [Mass/Vol]20.6 mg/dLWashington County Memorial HospitalTriglyceride [Mass/Vol]103 mg/dL NINF - 150 mg/dLNOSaint Alexius HospitalHP LIVER PANELon 47-35-1774Pzyncqq [Mass/Vol] 3.3 g/dLLow3.4 - 5.0 g/dLWashington County Memorial HospitalALBUMIN GLOBULIN RATIO0.8NORipley County [facility] Hospital ALP [Catalytic activity/Vol]66 U/L46 - 116 U/LNOMS HealthcareALT [Catalytic activity/Vol]26 U/L14 - 59 U/LNOMS HealthcareAST [Catalytic activity/Vol]15 U/L 15 - 37 U/LNOMS HealthcareBilirubin [Mass/Vol]0.3 mg/dL0.2 - 1.0 mg/dLNOMS HealthcareBilirubin.indirect [Mass/Vol]0.1 mg/dL0.0 - 0.2 mg/dLNOMS Healthcare Globulin (S) [Mass/Vol]4.2 g/dLNOMS HealthcareInterpretation and review of laboratory resultsAbnormalNOMS HealthcareProtein [Mass/Vol]7.5 g/dL6.4 - 8.2 g/dLNOMS HealthcareMM TOMOSYNTHESIS SCREENING BIon 12-05-4454RqzAl[place], [place] [address] Mammography Report Signed Patient: KARINA DE OLIVEIRA MR#: [id number] : 1965 Acct:[id number] Age/Sex: 57 / F ADM Date: 03/20/23 Loc: MAMMO Attending Dr: RADHA BARCLAY Ordering Physician: RADHA BARCLAY Results: Date of Service: 03/20/23 Follow Up: Procedure(s): MM tomosynthesis screening BI Accession Number(s): [id number] cc: Shaikh Erica Connelly; RADHA BARCLAY Patient Name: KARINA DE OLIVEIRA MR#: [id number] : 1965 Exam Date: 03/20/2023 Ordering Doctor: DR RADHA BARCLAY [facility] RADIOLOGY REPORT PROCEDURE: MM TOMOSYNTHESIS SCREENING [...] skin cancer at age 69. LOCATION: [facility] BREAST COMPOSITION: Scattered areas fibroglandular density. FINDINGS: [...] Signed By: 03/20/23 1259 DD/ 1257 TD/TT: Scouring Train Operator:ALEXadiologaislinn, MD Radha - 03/20/2023 [place] [address] Mammography Report Signed Patient: KARINA DE OLIVEIRA MR#: [id number] : 1965 Acct:[id number] Age/Sex: 57 / F ADM Date: 03/20/23 Loc: MAMMO Attending Dr: RADHA BARCLAY Ordering Physician: RADHA BARCLAY Results: Date of Service: 03/20/23 Follow Up: Procedure(s): MM tomosynthesis screening BI Accession Number(s): [id number] cc: Shaikh Erica Connelly; RADHA BARCLAY Patient Name: KARINA DE OLIVEIRA MR#: [id number] : 1965 Exam Date: 03/20/2023 Ordering Doctor: DR RADHA BARCLAY [facility] RADIOLOGY REPORT PROCEDURE: MM TOMOSYNTHESIS SCREENING BI COMPARISON: MG MAMM SCREEN 3D SALNIA CAD, 01/31/2021. MG MAMM SCREEN SALINA W CAD, 02/02/2020. INDICATIONS: screening Calculator Name NCI Breast Cancer Risk Assessment Tool 5 Year Breast Cancer Risk 1.20% Lifetime Breast Cancer Risk 6.70% Personal Breast Cancer No Personal Ovarian Cancer No Treatments None Family Cancers Grandfather-maternal with prostate cancer at age 70; Mother with skin cancer at age 71. LOCATION: [facility] BREAST COMPOSITION: Scattered areas fibroglandular density. FINDINGS: [...] Signed By: 03/20/23 1259 DD/ 1257 TD/TT: Scouring Train Operator: CRIS [facility] CenterRadiology Study observation (narrative)[facility] TOMOSYNTHESIS SCREENING BIOrdered By: Radiologist Radiology on 64-88-4869JQIV [employer] Work Phone: No Panel Informationon 05-55-3606FVFDYJXERSFDL HealthcareXR DEXA AXIAL SKELETONon 44-65-4205[place]ny[place], [place] [address] XRay Report Signed Patient: KARINA DE OLIVEIRA MR#: [id number] : 1965 Acct:[id number] Age/Sex: 57 / F ADM Date: 03/20/23 Loc: MAMMO Attending Dr: RADHA BARCLAY Ordering Physician: RADHA BARCLAY Date of Service: 03/20/23 Procedure(s): XR DEXA axial skeleton Accession Number(s): [id number] cc: Shaikh Erica Connelly; RADHA BARCLAY [place] [address] Patient Name: KARINA DE OLIVEIRA MRN: [id number] date: 1965 Sex: F Assigned Patient Location: [facility] Current Patient Location: LAB Accession/Order Number: [id number] Exam Date: 03/20/2023 09:28 Report Date: 03/20/2023 [...] M.D. Signed By: 03/20/23949 DD/ 7 TD/TT: Scouring Train Operator:TBHRadiology, Radiologist, - 03/20/2023 [place] [address] XRay Report Signed Patient: KARINA DE OLIVEIRA MR#: [id number] : 1965 Acct:[id number] Age/Sex: 57 / F ADM Date: 03/20/23 Loc: MAMMO Attending Dr: RADHA BARCLAY Ordering Physician: RADHA BARCLAY Date of Service: 03/20/23 Procedure(s): XR DEXA axial skeleton Accession Number(s): [id number] cc: Shaikh Erica Connelly; RADHA BARCLAY [place] [address] Patient Name: KARINA DE OLIVEIRA MRN: [id number] date: 1965 Sex: F Assigned Patient Location: [facility] Current Patient Location: LAB Accession/Order Number: [id number] Exam Date: 03/20/2023 09:28 Report Date: 03/20/2023 [...] M.D. Signed By: 03/20/23949 DD/ 7 TD/TT: Scouring Train Operator: CRIS HealthcareRadiology Study observation (narrative)[facility] HealthcareXR DEXA AXIAL SKELETONOrdered By: Radiologist Radiology on 51-66-4063LHCF [facility] Work Phone: XR LSPINE 2_3 VIEWSon 33-81-4886IX LSPINE 2_3 VIEWS EXAMINATION: XR LSPINE 2_3 [...] authenticated by: PATTIE SALTER Date: 2022-06-07 11:15NormalThe [facility] AUTO DIFFon 19-01-2994QULR #0.1 103/ulNormal0.0-0.1The [facility] CenterComment on above:Performed By: #### CBC ####[facility] [address] [place], [place] [address]Qi.Yilan ChangBasophils/100 WBC (Bld)0.5 %Normal0.2-2.0[facility] CenterComment on above:Performed By: #### CBC ####[facility] [address] [place], [place] [address]Ts.Yilan ChangEO #0.3 103/ulNormal0.0-0.7The [facility] CenterComment on above:Performed By: #### CBC ####[facility] [address] [place] [address]Dr.Ricky ChangEosinophils/100 WBC (Bld)3.0 %Normal 0.9-7.0The [facility] CenterComment on above:Performed By: #### CBC ####[facility] [address] [place], [place] [address]Dr.Ricky Valenzuela Erythrocyte distribution width (RBC) [Ratio]14.8 %Snfmdp30.0-15.0The [facility] CenterComment on above:Performed By: #### CBC ####[facility] [address] [place], [place] [address]Dr.Ricky ChangHematocrit (Bld) [Volume fraction]40.6 %Ylffhi57.0-48.0The [facility] CenterComment on above:Performed By: #### CBC ####[facility] Lngjsuncuo[address] [place], [place] [address]Dr.Ricky ChangHemoglobin (Bld) [Mass/Vol]13.5 g/dL Mdmfng01.0-16.0The [facility] CenterComment on above:Performed By: #### CBC ####[facility] Wnuomvfhla[address] [place], [place] [address]Dr. Ricky ChangIG #0.16 10e3/ulCritically high0.00-0.03The [facility] CenterComment on above:Performed By: #### CBC ####[facility] Bbvzmhvjgn[address] [place], [place] [address]Dr.Ricky ChangIG %1.4 %Critically high0.0-0.5The [facility] CenterComment on above:Performed By: #### CBC ####[facility] Xeadiumcka[address] [place], [place] [address]Dr.Ricky ChangLYMPH #3.4 103/ulNormal1.2-3.8The [facility] CenterComment on above:Performed By: #### CBC ####[facility] Dprxjwqvxy[address] [place], [place] [address]Dr. Ricky ChangLymphocytes/100 WBC (Bld)30.4 %Iyhxtb52.5-60.0[facility] Comment on above:Performed By: #### CBC ####[facility] [address] [place] [address]Dr.Ricky ValenzuelaMANUAL DIFF REQNONormalThe [facility] CenterComment on above:Performed By: #### CBC ####[facility] S[address] [place], [place] [address]Dr.Lesleysharron ValenzuelaH (RBC) [Entitic mass]31.8 lnFzucrb05.7-34.0The [facility] HospitalComment on above: Performed By: #### CBC ####[facility] Nyhsxlneok[address] [place], [place] [address]Dr.Lesleysharron ValenzuelaHC (RBC) [Mass/Vol]33.3 g/dLNormal 29.9-35.2The [facility] CenterComment on above:Performed By: #### CBC ####[facility] Rkbsvwzzip[address] [place], [place] [address]Dr. Ricky ValenzuelaV (RBC) [Entitic vol]95.5 gUJxcwsy07.0-99.0The [facility] Comment on above:Performed By: #### CBC ####[facility] Vrgcbqovgd[address] [place], [place] [address]DrDenise ValenzuelaMONO #0.9 103/ulCritically high0.3-0.8The [facility] CenterComment on above:Performed By: #### CBC ####[facility] Neitdztjeg[address] [place], [place] [address]Dr. Ricky ValenzuelaMonocytes/100 WBC (Bld)7.7 %Normal1.7-12.0The [facility] Comment on above:Performed By: #### CBC ####[facility] Xpwwhayget[address] [place], [place] [address]DrDenise ValenzuelaNEUT #6.3 103/ulNormal1.4-6.5 The [facility] CenterComment on above:Performed By: #### CBC ####[facility] Cmaiyyldzw[address] [place], [place] [address]DrDenise Valenzuela Neutrophils/100 WBC (Bld)57.0 %Mbpbci64.0-75.0The [facility] CenterComment on above:Performed By: #### CBC ####[facility] [address] [place] [address]Dr.Ricky ValenzuelaPlatelet mean volume (Bld) [Entitic vol] 9.8 fLNormal9.5-13.5The [facility] CenterComment on above:Performed By: #### CBC ####[facility] Nmhdmglill[address] [place], [place] [address]Dr. Ricky GtktuMTE207 103/tjFlagaa092-919Xbw [facility] CenterComment on above: Performed By: #### CBC ####[facility] Xtwaufijdd[address] [place], [place] [address]Dr.Ricky ChangRBC4.25 106/ulNormal4.20-5.40The [facility] CenterComment on above:Performed By: #### CBC ####[facility] Onbwajjzxm[address] [place], [place] [address]Dr.Ricky ValenzuelaWBC11.1 103/ul Critically high4.0-11.0The [facility] CenterComment on above:Performed By: #### CBC ####[facility] Hzjwmbotjk155[address] [place], [place] [address]Dr. Ricky ValenzuelaGLYCOHEMOGLOBIN A1Con 79-87-1280WDS RECOMMENDATIONSEE BELOWMercy Health St. Elizabeth Youngstown HospitalComment on above:Result Comment: ADA RECOMMENDED LIMIT 4.0 - 6.0 ADA THERAPEUTIC TARGET < 7.0 ACTION SUGGESTED > 7.0Performed By: #### A1C ####[facility] Gzaexofvyb[address] [place], [place] [address]Dr. Ricky ValenzuelaGlucose [Mass/Vol]160 mg/dLMercy Health St. Elizabeth Youngstown HospitalComment on above:Performed By: #### A1C ####[facility] Uuyphqicma[address] [place], [place] [address]Dr.Ricky ValenzuelaHbA1c (Bld) [Mass fraction]7.2 % Critically high4.5-6.2The [facility] CenterComment on above:Performed By: #### A1C ####[facility] [address] [place] [address]Dr. Ricky ValenzuelaMICROALBUMIN, RAND URon 17-54-5247kAFG<1.3Normal<=30.0The [facility] CenterComment on above:Performed By: #### MALBR #### [facility] [address] [place] [address] Dr. Ricky ValenzuelaPROF 14(COMP METB)on 34-99-2113Tfnyjsj [Mass/Vol]3.3 g/dL Critically low3.4-5.0The [facility] CenterComment on above:Performed By: #### CMP #### [facility] [address] [place] [address] Dr. Ricky ValenzuelaAlbumin/Globulin [Mass ratio]0.9 {ratio}NormalThe [facility] CenterComment on above:Performed By: #### CMP #### [facility] [address] [place] [address] Dr. Ricky RodriguesP [Catalytic activity/Vol]90 U/LQthuty46-712Fdf [facility] CenterComment on above:Performed By: #### CMP #### [facility] [address] [place] [address] Dr. Ricky Ambriz [Catalytic activity/Vol]42 U/PWvqmzm49-64Nii [facility] CenterComment on above:Performed By: #### CMP #### [facility] [address] [place] [address] Dr. Ricky Campbell gap [Moles/Vol]10.1 mmol/LNormalThe [facility] Comment on above:Performed By: #### CMP #### [facility] [address] [place] [address] Dr. Ricky Wells [Catalytic activity/Vol]21 U/RBaoayc01-35Ber [facility] CenterComment on above:Performed By: #### CMP #### [facility] [address] [place] [address] Dr. Ricky ValenzuelaBilirubin [Mass/Vol]0.3 mg/dLNormal0.2-1.0The [facility] Comment on above:Performed By: #### CMP #### [facility] [address] [address] [address] Ricky ValenzuelaCalcium [Mass/Vol]9.8 mg/dLNormal8.5-10.1The [facility] Comment on above:Performed By: #### CMP #### [facility] [address] [address] [address] Ricky ValenzuelaChloride [Moles/Vol]99 mmol/VLyqwnt03-738Nvj [facility] Comment on above:Performed By: #### CMP #### [facility] [address] [address] [address] Ricky ValenzuelaCO2 [Moles/Vol]33.7 mmol/LCritically high21.0-32.0The [facility] CenterComment on above:Performed By: #### CMP #### [facility] [address] [address] [address] Ricky ValenzuelaCreatinine [Mass/Vol]0.94 mg/dLNormal0.55-1.02The [facility] CenterComment on above:Performed By: #### CMP #### [facility] [address] [address] [address] Ricky ReynosoGFR-AF YEMENI>60Normal>=60The [facility] CenterComment on above:Performed By: #### CMP #### [facility] [address] [address] [address] Ricky ReynosoGFR-NON AF YEMENI>60Normal>=60The [facility] CenterComment on above:Performed By: #### CMP #### [facility] [address] [address] [address] Ricky ValenzuelaGlobulin (S) [Mass/Vol]3.8 g/dLNormalThe [facility] CenterComment on above:Performed By: #### CMP #### [facility] [address] [address] [address] Ricky ValenzuelaGlucose [Mass/Vol]168 mg/dLCritically cgvj61-061Jbj [facility] CenterComment on above:Performed By: #### CMP #### [facility] [address] [place], [place] [address] Dr. Ricky ValenzuelaPotassium [Moles/Vol]4.8 mmol/LNormal3.5-5.1The [facility] Comment on above:Performed By: #### CMP #### [facility] [address] [place], [place] [address] Dr. Ricky ValenzuelaProtein [Mass/Vol]7.1 g/dLNormal6.4-8.2The [facility] Comment on above:Performed By: #### CMP #### [facility] [address] [place], [place] [address] Dr. Ricky ValenzuelaSodium [Moles/Vol]138 mmol/OEczwad481-416Osj [facility] Comment on above:Performed By: #### CMP #### [facility] [id number] Ricky ValenzuelaUrea nitrogen [Mass/Vol]22.0 mg/dLCritically high7.0-18.0[facility] HospitalComment on above:Performed By: #### CMP #### [facility] [address] [place], [place] [address] Dr. Ricky Alcala nitrogen/Creatinine [Mass ratio]23.4 mg/mgNormalThe [facility] CenterComment on above:Performed By: #### CMP #### [facility] [id number] Ricky Caicedoologyon 63-79-6354Yvoytrsi(NOTE) INTERPRETATION Vaginal material, (ThinPrep vial, Imaging-assisted review): Specimen Adequacy: Satisfactory for evaluation. Descriptive Diagnosis: Negative for intraepithelial lesion or malignancy. Primary Clinician: CLARK Delacruz(ASCP) Electronically Signed Out zackary/09/07/2021 Source: A: Vaginal material, (ThinPrep vial, Imaging-assisted review) Clinical History Hysterectomy Surgery: Salpingostomy; Ovary removal Z12.4 Encounter for screening for malignant neoplasm of cervix GYNECOLOGIC CYTOLOGY REPORT Patient Name: KARINA DE OLIVEIRA [facility] Rec: [id number] Path Number: [id number] [facility] ANATOMIC PATHOLOGY [address] [place] [id number] NoMercy Health Anderson HospitalComment on above:Performed By: #### PPPVP #### [facility] [employer] [facility] [id number] Medical Writer: [facility] AUTO DIFFon [id number] #0.1 103/ulNormal 0.0-0.1The [facility] CenterComment on above:Performed By: #### CBC #### [facility] Laboratory [address] [address] [address] Ricky ValenzuelaBasophils/100 WBC (Bld)0.8 %Normal0.2-2.0The [facility] Comment on above:Performed By: #### CBC #### [facility] Laboratory [address] [place] [address] Dr. Ricky Anderson #0.2 103/ulNormal0.0-0.7The [facility] CenterComment on above: Performed By: #### CBC #### [facility] [address] [address] [address] Ricky Reynosoosinophils/100 WBC (Bld)2.1 %Normal0.9-7.0The [facility] Comment on above:Performed By: #### CBC #### [facility] Laboratory [address] [place] [address] Dr. Ricky Reynosorythrocyte distribution width (RBC) [Ratio]15.2 %Critically high 11.0-15.0The [facility] CenterComment on above:Performed By: #### CBC #### [facility] [address] [place] [address] Dr. Ricky ValenzuelaHematocrit (Bld) [Volume fraction]41.5 %Ksqkus99.0-48.0The [facility] CenterComment on above:Performed By: #### CBC #### [facility] [address] [place] [address] Dr. Ricky ValenzuelaHemoglobin (Bld) [Mass/Vol]13.5 g/kWBkkbap76.0-16.0The [facility] CenterComment on above:Performed By: #### CBC #### [facility] [address] [address] [address] Ricky Adler #0.42 10e3/ulCritically high0.00-0.03The [facility] Comment on above:Performed By: #### CBC #### [facility] [address] [address] [address] Ricky Adler %3.8 %Critically high0.0-0.5The [facility] HospitalComment on above:Performed By: #### CBC #### [facility] [address] [place] [address] Dr. Ricky Rausch #3.3 103/ulNormal1.2-3.8The [facility] CenterComment on above:Performed By: #### CBC #### [facility] [address] [place] [address] Dr. Ricky Saenzhocytes/100 WBC (Bld)29.1 %Mhmkkp74.5-60.0The [facility] CenterComment on above:Performed By: #### CBC #### [facility] [address] [address] [address] Ricky PachecoTHE [facility] DIFF REQNONormalThe [facility] CenterComment on above: Performed By: #### CBC #### [facility] [address] [address] [address] Ricky Archer (RBC) [Entitic mass]32.4 wmVubhty39.7-34.0The [facility] CenterComment on above:Performed By: #### CBC #### [facility] [address] [place] [address] Dr. Ricky Archer (RBC) [Mass/Vol]32.5 g/sOAopigk70.9-35.2The [facility] CenterComment on above:Performed By: #### CBC #### [facility] [address] [place] [address] Dr. Ricky Archer (RBC) [Entitic vol]99.5 fLCritically high81.0-99.0The [facility] CenterComment on above:Performed By: #### CBC #### [facility] [address] [place] [address] Dr. Ricky Burnham #0.8 103/ulNormal0.3-0.8The [facility] CenterComment on above:Performed By: #### CBC #### [facility] [address] [place] [address] Dr. Ricky Kiddocytes/100 WBC (Bld)7.5 %Normal1.7-12.0The [facility] Comment on above:Performed By: #### CBC #### [facility] [address] [place] [address] Dr. Ricky Sahu #6.3 103/ulNormal1.4-6.5The [facility] CenterComment on above:Performed By: #### CBC #### [facility] [address] [place] [address] Dr. Ricky Gonzalezutrophils/100 WBC (Bld)56.7 %Byhnhi54.0-75.0The [facility] CenterComment on above:Performed By: #### CBC #### [facility] [address] [place] [address] Dr. Ricky Golden mean volume (Bld) [Entitic vol]9.8 fLNormal9.5-13.5The [facility] CenterComment on above:Performed By: #### CBC #### [facility] [address] [place] [address] Dr. Ricky ValenzuelaPLT265 103/kuOetrtd586-651Ihq [facility] CenterComment on above: Performed By: #### CBC #### [facility] [address] [place] [address] Dr. Ricky ValenzuelaRBC4.17 106/ulCritically low4.20-5.40The [facility] CenterComment on above:Performed By: #### CBC #### [facility] [address] [place] [address] Dr. Ricky ValenzuelaWBC11.2 103/ulCritically high4.0-11.0The [facility] HospitalComment on above:Performed By: #### CBC #### [facility] [address] [address] [address] Ricky ValenzuelaGLYCOHEMOGLOBIN A1Con 41-90-7756DKJ RECOMMENDATIONSEE BELOWCommunity Memorial HospitalCommclaren [place] on above:Result Comment: ADA RECOMMENDED LIMIT 4.0 - 6.0 ADA THERAPEUTIC TARGET < 7.0 ACTION SUGGESTED > 7.0Performed By: #### A1C ####[facility] [address] [place] [address]Dr. Ricky ValenzuelaGlucose [Mass/Vol]183 mg/dLMercy Health St. Elizabeth Young[facility] HospitalCommclaren [place] on above:Performed By: #### A1C ####[facility] [address] [place] [place] [address]Dr.Yilan ValenzuelaHbA1c (Bld) [Mass fraction]8.0 % Critically high4.5-6.2The [facility] on above:Performed By: #### A1C ####[facility] [address] [address]Dr. Ricky ValenzuelaLIPID PROFILEon [id number]-HDL RATIO NORMSEE BELOWMercy Health St. Elizabeth Young[facility] HospitalCommclaren [place] on above:Result Comment: 3.3 - 4.4 LOW RISK 4.4 - 7.1 AVERAGE RISK 7.1 - 11.0 MODERATE RISK >11.0 HIGH RISKPerformed By: #### CMP, LIPID #### [facility] [address] [address] [address] Ricky Garayesterol [Mass/Vol]239 mg/dLCritically high<=200[facility] on above:Performed By: #### CMP, LIPID #### [facility] [address] [address] [address] Ricky Garayesterol in HDL [Mass/Vol]36 mg/dLCritically khf73-89Stt [facility] on above:Performed By: #### CMP, LIPID #### [facility] [address] [address] [address] Ricky Garayesterol in LDL [Mass/Vol]164.2 mg/dLMercy Health St. Elizabeth Youngstown HospitalComment on above:Performed By: #### CMP, LIPID #### [facility] [address] [address] [address] Ricky ValenzuelaCholesterol.total/Cholesterol in HDL [Mass ratio]6.6 {ratio} NormalThe [facility] CenterCommclaren [place] on above:Performed By: #### CMP, LIPID #### [facility] [address] [address] [address] Ricky Mahoney NORMAL> or = 60 mg/dl - LOW CARDIOVASCULAR RISK <40 mg/dl - HIGH CARDIOVASCULAR RISKNoParkview Health Bryan HospitalComment on above:Performed By: #### CMP, LIPID #### [facility] [address] [address] [address] Ricky Boudreaux CALC NORMALSEE BELOWMercy Health St. Elizabeth Youngstown HospitalComment on above:Result Comment: <100 mg/dl OPTIMAL 100 - 129 mg/dl NEAR OR ABOVE OPTIMAL 130 - 159 mg/dl BORDERLINE HIGH 160 - 189 mg/dl HIGH >190 mg/dl VERY HIGH Performed By: #### CMP, LIPID #### [facility] [address] [address] [address] Ricky ValenzuelaTriglyceride [Mass/Vol]194 mg/dLCritically high<=150The [facility] CenterCommclaren northern [place] on above:Performed By: #### CMP, LIPID #### [facility] [address] [address] [address] Ricky ValenzuelaVLDL CALC38.8 mg/dLNoParkview Health Bryan HospitalComment on above: Performed By: #### CMP, LIPID #### [facility] [address] [address] [address] Ricky ValenzuelaMICSTEPHANIEALBUMIN, RAND URon 80-59-6672jXNY46.1 mg/LNormal<=30.0The [facility] CenterComment on above:Performed By: #### MALBR ####[facility] [address] [address]Dr. Ricky ValenzuelaPROF 14(COMP METB)on 22-71-7824Lkeanvr [Mass/Vol]3.3 g/dLCritically low3.4-5.0The [facility] CenterComment on above:Performed By: #### CMP, LIPID #### [facility] Laboratory [address] [place] [address] Dr. Ricky ValenzuelaAlbumin/Globulin [Mass ratio]0.8 {ratio}NormalThe [facility] CenterComment on above:Performed By: #### CMP, LIPID #### [facility] [address] [address] [address] Ricky Harris [Catalytic activity/Vol]93 U/TWxhgop44-267Cbr [facility] CenterComment on above:Performed By: #### CMP, LIPID #### [facility] [address] [place] [address] Dr. Ricky Ambriz [Catalytic activity/Vol]37 U/HXzxhwr87-78Evh [facility] CenterComment on above:Performed By: #### CMP, LIPID #### [facility] [address] [place] [address] Dr. Ricky Campbell gap [Moles/Vol]10.9 mmol/LNormalThe [facility] Comment on above:Performed By: #### CMP, LIPID #### [facility] Laboratory [address] [place] [address] Dr. Ricky ValenzuelaAST [Catalytic activity/Vol]10 U/LCritically jye52-82Ypc [facility] CenterComment on above:Performed By: #### CMP, LIPID #### [facility] [address] [place] [address] Dr. Ricky ValenzuelaBilirubin [Mass/Vol]0.2 mg/dLNormal0.2-1.0The [facility] Comment on above:Performed By: #### CMP, LIPID #### [facility] [address] [place] [address] Dr. Ricky ValenzuelaCalcium [Mass/Vol]9.0 mg/dLNormal8.5-10.1The [facility] Comment on above:Performed By: #### CMP, LIPID #### [facility] [address] [place] [address] Dr. Ricky ValenzuelaChloride [Moles/Vol]100 mmol/FDciphg16-004Cje [facility] Comment on above:Performed By: #### CMP, LIPID #### [facility] [address] [place] [address] Dr. Ricky ValenzuelaCO2 [Moles/Vol]32.2 mmol/LCritically high21.0-32.0The [facility] CenterComment on above:Performed By: #### CMP, LIPID #### [facility] [address] [place] [address] Dr. Ricky ValenzuelaCreatinine [Mass/Vol]0.95 mg/dLNormal0.55-1.02The [facility] CenterComment on above:Performed By: #### CMP, LIPID #### [facility] [address] [place] [address] Dr. Ricky ReynosoGFR-AF YEMENI>60Normal>=60The [facility] CenterComment on above:Performed By: #### CMP, LIPID #### [facility] [address] [place] [address] Dr. Ricky ReynosoGFR-NON AF YEMENI>60Normal>=60The [facility] CenterComment on above:Performed By: #### CMP, LIPID #### [facility] [address] [place] [address] Dr. Ricky ValenzuelaGlobulin (S) [Mass/Vol]4.2 g/dLNormalThe [facility] CenterComment on above:Performed By: #### CMP, LIPID #### [facility] [address] [place] [address] Dr. Ricky ValenzuelaGlucose [Mass/Vol]200 mg/dLCritically tdrg35-385Svt [facility] CenterComment on above:Performed By: #### CMP, LIPID #### [facility] [address] [place] [address] Dr. Ricky ValenzuelaPotassium [Moles/Vol]4.1 mmol/LNormal3.5-5.1The [facility] Comment on above:Performed By: #### CMP, LIPID #### [facility] [facility] [address] [place] [address] Dr. Ricky ValenzuelaProtein [Mass/Vol]7.5 g/dLNormal6.4-8.2[facility] Comment on above:Performed By: #### CMP, LIPID #### [facility] [address] [address] [address] Ricky ValenzuelaSodium [Moles/Vol]139 mmol/TCcgbeg527-062Nty [facility] Comment on above:Performed By: #### CMP, LIPID #### [facility] [address] [address] [address] Ricky ValenzuelaUrea nitrogen [Mass/Vol]13.0 mg/dLNormal7.0-18.0The [facility] CenterComment on above:Performed By: #### CMP, LIPID #### [facility] [address] [place] [address] Dr. Ricky Alcala nitrogen/Creatinine [Mass ratio]13.7 mg/mgNormalThe [facility] CenterComment on above:Performed By: #### CMP, LIPID #### [facility] [address] [place] [address] Dr. Ricky ValenzuelaPOINT OF CARE GLUCOSEon 66-85-9272Nevlcnl [Mass/Vol]176 mg/dL Critically wvwy10-182Rsr [facility] CenterComment on above:Performed By: #### POCGLUC #### [facility] [address] [place] [address] Dr. Ricky Valenzuela Vital Signs Date TimeVital SignValuePerforming NzgbpvdojXdlzedvi45-51-7991 12:47-0400 Diastolic blood zwffjjok56 mm[Hg]Ameena Vera [employer]-C Work Phone: [facility]10-29-2025 12:47-0400 Systolic blood isflxiaa812 mm[Hg]Ameena Vera [employer]-C Work Phone: [facility]10-13-2025 13:07-0400 Body swwnse527.94 Khanh Vera [employer]ODU[employer]ER-C Work Phone: [facility]10-13-2025 13:07-0400 Body mass index (BMI) [Ratio]39.9 kg/m2Lisa Pohholz [employer]URAL [employer]ODUCE W[employer]ER-C Work Phone: [phone]10-13-2025 13:07-0400 Body kgxagwlxhvi25.3 [degF]Ameena Aichholz [employer]-C Work Phone: [phone] [place], [place] 5592510-13-2025 13:07-0400 Body ubioem57.76 kgLisa Aichholz [employer]-C Work Phone: [phone] [place], [place] 5592510-13-2025 13:07-0400 Diastolic blood sqpotfba46 mm[Hg]Ameena Pohholz [employer]-C Work Phone: [phone] [place], [place] 5592510-13-2025 13:07-0400 Heart iwzs065 /minLisa Aichholz [employer]-C Work Phone: [phone] [place], [place] 5592510-13-2025 13:07-0400 Respiratory rate18 /minLisa Aichholz [employer]-C Work Phone: [phone] [place], [place] 5592510-13-2025 13:07-0400 SaO2% (BldA) [Mass fraction]92 %Ameena Pohholz [employer]ER-C Work Phone: [phone] [place], [place] 5592510-13-2025 13:07-0400 Systolic blood vvvzurjl019 mm[Hg]Ameena Ryanholz [employer]ER-C Work Phone: [phone])[address]09-22-2025 09:56-0400 Body locswc193.4 Carol Bennett MD Work Phone: [facility] HospitalXgsqlnfjhu09-19-5286 09:56-0400Body mass index (BMI) [Ratio]40.62 kg/z1GilrzKasi Bennett MD Work Phone: [facility] HospitalAttipmtcwh78-79-4136 09:56-0400Body tpkgea23.35 kgKasi Bennett MD Work Phone: [facility] HospitalCgiqlwrjdm27-18-6724 09:56-0400Heart rate83 /min Kasi Bennett MD Work Phone: [facility] HospitalTvfzcwjmpg88-60-0634 09:56-0400Respiratory rate18 /minKasi Bennett MD Work Phone: [facility] HospitalLofximxawq07-01-2999 09:56-5864UkZ2% (BldA) [Mass fraction]95 %Kasi Bennett MD Work Phone: [facility] HospitalYhwcxnqiws90-19-6182 11:44-0400Body temperature 98.1 [degF]Ameena Aichholz Work Phone: [phone]09-08-2025 11:44-0400 Body umiwgs05.41 kgLisa Aichholz Work Phone: [phone]09-08-2025 11:44-0400 Diastolic blood uazncobw10 mm[Hg]Ameena Aichholz Work Phone: [phone]09-08-2025 11:44-0400 Heart rate93 /minLisa Aichholz Work Phone: [phone]09-08-2025 11:44-0400 Respiratory rate16 /minLisa Aichholz Work Phone: [phone]09-08-2025 11:44-0400 SaO2% (BldA) [Mass fraction]97 %Ameena Aichholz Work Phone: [phone]09-08-2025 11:44-0400 Systolic blood xntuplsh224 mm[Hg]Ameena Aichholz Work Phone: [phone]07-10-2025 11:10-0400 Diastolic blood shlnwofa69 mm[Hg]Ameena Aichholz [employer]ODU[employer] W[employer]ER Work Phone: [facility] HospitalVvpmjjwqoc98-83-1898 11:10-0400Systolic blood yqieyvoh02 mm[Hg]Ameena Aichholz [employer] PRODU[employer] WASHER Work Phone: noRiple[facility] HospitalUgbbemuxqm02-11-5577 10:37-0400Body mass index (BMI) [Ratio]39.74 kg/m2Ameena Vera [employer]ODUCE WASHER Work Phone: noRiple[facility] HospitalDdklzebgoq06-15-3363 10:37-0400Body temperature 98.49 [degF]Ameena Vera [employer]ODU[employer] WASHER Work Phone: noRiple[facility] HospitalRuxqfknadf35-39-7264 10:37-0400Body ffdels17.98 kgAmeena Vera [employer]ODU[employer] WASHER Work Phone: [facility] HospitalIorbsacizr76-21-9321 10:37-0400Heart uclg130 /min Ameena Vera [employer]ODU[employer] W[employer]ER Work Phone: noRiple[facility] HospitalBrqssbmdzz31-68-9675 10:37-0400Respiratory rate18 /minLisa Vera [employer]ODUCE W[employer]ER Work Phone: [facility] HospitalJuirzyqfdt69-73-2385 10:37-1704AaU5% (BldA) [Mass fraction]93 %Ameena Vera [employer]ODUCE WASHER Work Phone: MYRiple[facility] HospitalVjgmxzkavh18-15-3162 14:08-0400Body jzojbe248.2 Carol Bennett MD Work Phone: noRiple[facility] HospitalMqfizsgpyr52-56-3039 14:08-0400Body mass index (BMI) [Ratio]39.04 kg/s3PoqpwKasi Bennett MD Work Phone: noRiple[facility] HospitalGdrwchgfju92-81-7163 14:08-0400Body ifpggh61.25 kgKasi Bennett MD Work Phone: [facility] HospitalNxlmmrejuw94-15-8583 14:08-0400Diastolic blood prrlexdi90 mm[Hg]Kasi Bennett MD Work Phone: noRiple[facility] HospitalWhuutlpydy24-66-5336 14:08-0400Heart rate86 /min Kasi Bennett MD Work Phone: noR[facility] HospitalApczdvkxve56-35-7499 14:08-0400Respiratory rate18 /minKasi Bennett MD Work Phone: [facility] HospitalFyhjzkqegm94-35-8955 14:08-9327WyX7% (BldA) [Mass fraction]93 %Kasi Bennett MD Work Phone: [facility] HospitalDutucipbov16-08-3497 14:08-0400Systolic blood zdoiubeu163 mm[Hg]Kasi Bennett MD Work Phone: [facility] HospitalGqwkplfnsg94-24-2516 13:16-0400Body zpuxij663.94 cmMad[facility]04-17-2025 13:16-0400Body mass index (BMI) [Ratio]39.4 kg/e0AnekriboyMadison Health04-17-2025 13:16-0400Body ctudbd38.8 kgMadison Health04-08-2025 11:10-0400Body height 157.5 cmLisa Chuy [employer] PRODUCE WASHER Work Phone: [facility] HospitalZgsfsdmdzx96-71-1080 11:10-0400Body mass index (BMI) [Ratio]39.03 kg/m2Lisa Pohholz [employer]ODU[employer] W[employer]ER Work Phone: [facility] HospitalXamwgcmdfh69-64-5018 11:10-0400Body temperature 98.29 [degF]Ameena Chuy [employer]ODU[employer] W[employer]ER Work Phone: [facility] HospitalNfahcxrcva90-65-0650 11:10-0400Body haihli51.8 kg Ameena Chuy [employer]ODU[employer] W[employer]ER Work Phone: [facility] HospitalDpcxowvtzv61-27-7347 11:10-0400Diastolic blood tcbqawlk88 mm[Hg]Ameena Ryanholz [employer] W[employer]ER Work Phone: [facility] HospitalZfjouzruan40-72-2767 11:10-0400Heart rate91 /min Ameena Pohdeidrez [employer] W[employer]ER Work Phone: [facility] HospitalIgfaiozrpe91-74-4944 11:10-0400Respiratory rate18 /minLisa Pohholz [employer]URAL PRODUCE WASHER Work Phone: [facility] HospitalOalpujhsjp57-85-5659 11:10-5486EqA0% (BldA) [Mass fraction]96 %Ameena Ryanholz [employer]ODUCE WASHER Work Phone: noRiple[facility] HospitalQxuzvgpzyh25-91-3797 11:10-0400Systolic blood ajgqitqx839 mm[Hg]Ameena Vera [employer] PRODU[employer] WASHER Work Phone: [facility] HospitalPvhowtbfnu97-15-0955 13:08-0400Body ggibfc800.5 cmAcrescencio Wilkerson [employer]ODUCE WASHER Work Phone: [facility] HospitalXzloinpneo92-47-6506 13:08-0400Body mass index (BMI) [Ratio]39.51 kg/v6FxtifvZa Shipmanr [employer]URAL PRODUCE WASHER Work Phone: [facility] HospitalOlezpufiau08-80-8217 13:08-0400Body .98 kgZa Shipmanr [employer]URAL PRODUCE WASHER Work Phone: noRiple[facility] HospitalFyzunomktr91-28-7693 13:08-0400Diastolic blood himcoysr84 mm[Hg]Za Wilkerson [employer]IC[employer]URAL PRODUCE WASHER Work Phone: [facility] HospitalBvnfbctlos74-71-8655 13:08-0400Heart rate96 /min Za Shipmanr [employer] PRODUCE WASHER Work Phone: noRiple[facility] HospitalAryktnunfm46-47-1087 13:08-0725XgZ0% (BldA) [Mass fraction]93 %Za Shipmanr [employer] PRODUCE WASHER Work Phone: noRiple[facility] HospitalQyrpbkeaoa19-97-5988 13:08-0400Systolic blood dihpuufi900 mm[Hg]Za Shipmanr [employer]ODU[employer] WASHER Work Phone: [facility] HospitalGsilhdgiio98-77-9531 09:40-0500Body pgbtdu760.5 cmSonma Drake AGRIC[employer]URAL PRODUCE WASHER Work Phone: [facility] HospitalJaljuecbqs97-52-2004 09:40-0500Body mass index (BMI) [Ratio]39.51 kg/c1Lifxdtvc Drake [employer] PRODUCE WASHER Work Phone: [facility] HospitalYnmkmxubpu62-25-5679 09:40-0500Body temperature 97.3 [degF]Sonam Drake [employer]IC[employer]URAL PRODUCE WASHER Work Phone: [facility] HospitalMyamgwvmmb13-85-9527 09:40-0500Body yxuzcx64.98 kgBrittcarlene Drake [employer]IC[employer]URAL PRODUCE WASHER Work Phone: [facility] HospitalOotnrkfuce57-27-3977 09:40-0500Diastolic blood mm[Hg]Sonam Drake [employer]ODU[employer] W[employer]ER Work Phone: [facility] HospitalMdwbmjxybt24-71-7604 09:40-0500Heart rate76 /min Sonam Drake [employer] PRODU[employer] W[employer]ER Work Phone: [facility] HospitalNhxsggpkrj70-58-7751 09:40-0500Respiratory rate16 /minBrittcarlene Drake A[employer]IC[employer]URAL PRODUCE WASHER Work Phone: [facility] HospitalKucbdkupvj05-68-9437 09:40-0041PfU8% (BldA) [Mass fraction]98 %Sonam Drake [employer] PRODUCE WASHER Work Phone: [facility] HospitalCotmndyvlj85-73-6481 09:40-0500Systolic blood yapkfokq387 mm[Hg]Sonam Drake [employer] PRODU[employer] WASHER Work Phone: [facility] HospitalZvncpahats87-74-5667 10:13-0500Body .5 cmKortneyany Drake [employer]URAL PRODUCE WASHER Work Phone: [facility] HospitalXiabgwkovc12-22-2656 10:13-0500Body mass index (BMI) [Ratio]39.51 kg/s4Xxtjcuyn Drake [employer] W[employer]ER Work Phone: [facility] HospitalIilurdmzdi74-90-1976 10:13-0500Body temperature 97.2 [degF]Sonam Drake [employer]ODU[employer] W[employer]ER Work Phone: [facility] HospitalDpgtztteym32-06-4040 10:13-0500Body imjomd36.98 kgBrittany Drake A[employer]IC[employer]URAL PRODUCE WASHER Work Phone: [facility] HospitalTslyakyddz62-70-1793 10:13-0500Diastolic blood vzciwqww54 mm[Hg]Sonam Drake [employer]ODU[employer] W[employer]ER Work Phone: [facility] HospitalRdhjepckos50-58-4785 10:13-0500Heart rate84 /min Sonam Drake [employer]ODUCE W[employer]ER Work Phone: [facility] HospitalKkjikycord85-60-9285 10:13-0500Respiratory rate16 /minBrzulema Drake A[employer]IC[employer]URAL PRODUCE WASHER Work Phone: [facility] HospitalKyaptclwmy01-77-0972 10:13-9294TiQ2% (BldA) [Mass fraction]96 %Sonam Riverpatrick A[employer]IC[employer]URAL PRODUCE WASHER Work Phone: [facility] HospitalFrcgdohmak80-85-0522 10:13-0500Systolic blood zvheuzkv832 mm[Hg]Sonamyazmin RiverDrake A[employer]IC[employer]URAL PRODUCE WASHER Work Phone: [address] [address]Sfnzpnekws81-79-1219 10:06-0500Body wqymfa589.5 cmNicole Solo DO Work Phone: [address] [address]Mrmmmlqstg81-00-5814 10:06-0500Body mass index (BMI) [Ratio]39.14 kg/z7Ssghyu Solo DO Work Phone: [address] [address]Tpavuiwggi58-10-0592 10:06-0500Body .07 kgNicole Solo DO Work Phone: [address] [address]Niedrohqxj86-41-8173 10:06-0500Diastolic blood aesyiebq22 mm[Hg]Sivan Solo DO Work Phone: [address] [address]Fvvoccxdet08-85-6366 10:06-0500Heart rate95 /min Sivan Solo DO Work Phone: [address] [address]Xwzxjbqiqg17-17-0189 10:06-5648GjI8% (BldA) [Mass fraction]97 %Sivan Solo DO Work Phone: [address] [address]Qzcppvowsn06-23-1979 10:06-0500Systolic blood exvpbowt783 mm[Hg]Sivan Solo DO Work Phone: [address] [address]Ocxxqzxvhq68-61-6727 10:46-0500Body mass index (BMI) [Ratio]40.06 kg/u6Imirtnhd Drake [employer]ODUCE WASHER Work Phone: 1(419)547-034073 Harris StreetBtbbjjnwub57-95-2389 10:46-0500Body .34 kgBrzulema Drake [employer]ODUCE WASHER Work Phone: [facility] HospitalUrxprebasm67-68-3233 10:46-0500Diastolic blood amqerrzg16 mm[Hg]Sonam Drake [employer] PRODUCE WASHER Work Phone: [facility] HospitalBjutugasyt65-22-9443 10:46-0500Heart rate97 /min Sonam Drake [employer]ODUCE W[employer]ER Work Phone: [address] [address]Ybfjgwkeyo31-24-2477 10:46-5413TcH1% (BldA) [Mass fraction]98 %Sonam Drake [employer]IC[employer] PRODUCE WASHER Work Phone: [address] [address]Kskkoqsdnh76-54-6993 10:46-0500Systolic blood ipdzilsy62 mm[Hg]Sonam Drake [employer] PRODU[employer] WASHER Work Phone: [facility] HospitalIqwuogoukq47-40-1190 10:07-0400Body .5 cmSonam Drake A[employer]URAL PRODUCE WASHER Work Phone: [facility] HospitalJtapfshqex95-35-4708 10:07-0400Body mass index (BMI) [Ratio]39.32 kg/m1Sxofonxx Drake [employer] W[employer]ER Work Phone: [facility] HospitalXcjpjlkysb88-03-0134 10:07-0400Body temperature 97.5 [degF]Sonam Drake [employer] PRODUCE WASHER Work Phone: [facility] HospitalBnelbwlbjq66-81-6163 10:07-0400Body ojilin75.52 kgBrzulema Drake AGRIC[employer]URAL PRODUCE WASHER Work Phone: [place] [address]Mjanspluam76-17-0128 10:07-0400Diastolic blood mbxqhqas70 mm[Hg]Sonam Drake [employer]IC[employer] PRODUCE W[employer]ER Work Phone: [facility] HospitalCbinfzwffx49-84-8193 10:07-0400Heart rajr670 /min Sonam Drake [employer] W[employer]ER Work Phone: [facility] HospitalComment on above:97% U551-98-6136 10:07-0400Systolic blood zvoqijmz65 mm[Hg]Sonam Riverpatrick [employer]URAL PRODUCE WASHER Work Phone: [facility] HospitalWklfpnuzxq21-34-8349 09:10-0500Body ebeymf121.21 cmPkelley Hendricks Other [employer] Other 12-08-2023 09:10-0500Body mass index (BMI) [Ratio] 42.82 kg/g7Nspqtt Ruthie Other [employer] Other 12-08-2023 09:10-0500Body ebmhnfgkmhd14.2 [degF]Elle Ruthie Other [employer] Other 12-08-2023 09:10-0500Body zayssb679.51 kgLeeannaovidio Ruthie Other [employer] Other 12-08-2023 09:10-0500Diastolic blood dusvwvsp76 mm[Hg] Elle Ruthie Other [employer] Other 12-08-2023 09:10-0500Respiratory rate18 /minElle Hendricks Other [employer] Other 12-08-2023 09:10-8533YnE6% (BldA) [Mass fraction]97 % Elle Ruthie Other [employer] Other 12-08-2023 09:10-0500Systolic blood jculabka963 mm[Hg] Elle Hendricks Other [employer] Other Encounters Encounter DateEncounter TypeCare ProviderFacilityStart: 12-09-2024 End: 41-83-8147ythihiwnsrVmoi J Aichholz A[employer]ODUCE W[employer]ER-C Work Phone: [phone]-Ympvbckjh Health OrthopedicsStart: 12-09-2024 End: 84-09-6133Qotujtv encounter procedureRobert Darren Mcgee MD-[facility] Work Phone: Start: 81-32-9887Xjf-patient / Non-visitAmeena Vera NP-C-[facility] Work Phone: Start: 11-30-2024 End: 57-44-6794wchgxttlxdSkniaivAustin Crowley MDFacility:PM Qasim Start: 11-23-2024 End: 27-89-4405wuhmixlrbjXtrh J Aichholz [employer] W[employer]ER-C Work Phone: [facility] Work Phone: Start: 11-23-2024 End: 86-42-8642Udakbub encounter procedureAmeena Vera A[employer]IC[employer]URAL PRODUCE WASHER-C-[facility] Juan Carlos Work Phone: Start: 11-02-2024 End: 16-97-7366Txfvartutu Bennett MD Work Phone: noms Jason EndocrinologyStart: 11-02-2024 End: 63-29-3376Yqwvopapolinar Bennett MD Work Phone: n[facility] Jason EndocrinologyStart: 11-02-2024 End: 74-49-2666Shckkm outpatient visit 25 minutesKasi Bennett MD Work Phone: noms Jason EndocrinologyComment on above:Low serum parathyroid hormone (PTH) (Primary Dx); Hypercalcemia; Vitamin D deficiency; HypomagnesemiaStart: 11-02-2024 End: 19-95-3193ibwcbowfgqWQCDR F SABBAGHNot AvailableStart: 06-79-6422Ylk- patient / Non-visitKasi Bennett MD-[facility] Work Phone: Start: 10-26-2024 End: 91-60-7476vvvcyvnoyaQwmpjnzAustin Crowley MDFacility:BRIANNA Tripp Start: 10-19-2024 End: 08-76-3200xzdknnznbvVnso J Aichholz Work Phone: [facility] Work Phone: Start: 10-19-2024 End: 22-77-2611Rysodel encounter procedureAmeena Vera [employer]URAL PRODUCE WASHER-C-[facility] Work Phone: Start: 10-05-2024 End: 15-46-7600XxibtsBmzk Naderer MD Work Phone: noms CWM FMComment on above:Other hyperlipidemiaStart: 09-29-2024 End: 36-22-6562DhplazCbyg Aichholz A[employer]IC[employer]URAL PRODUCE WASHER Work Phone: [facility] CWM FMComment on above:Lumbar back painStart: 09-23-2024 End: 27-24-5218JzekmrUyxr Aichholz [employer] PRODUCE WASHER Work Phone: [facility] C[facility] FMComment on above:Diabetic polyneuropathy associated with type 2 diabetes mellitus (HCC)Start: 08-20-2024 End: 30-18-3514NzuzbgKiir Aichholz A[employer]URAL PRODUCE WASHER Work Phone: [facility] CWM FMComment on above:Bilateral lower extremity edema; Migraine with aura and without status migrainosus, not intractable ; Type 2 diabetes mellitus with diabetic microalbuminuria, without long-term current use of insulin (HCC); Osteoporosis, unspecified osteoporosis type, unspecified pathological fracture presenceStart: 08-20-2024 End: 88-23-4864Rhnodx outpatient visit 25 Renate Vera A[employer]ODUCE W[employer]ER Work Phone: [facility] CWM FMComment on above:Type 2 diabetes mellitus with diabetic microalbuminuria, without long-term current use of insulin (HCC) (Primary Dx); Essential hypertension; Morbid (severe) obesity due to excess calories (E66.01); Cigarette nicotine dependence without complication; Chronic gout of multiple sites, unspecified cause; Gastroesophageal reflux disease without esophagitis; Bilateral lower extremity edemaStart: 08-05-2024 End: 86-12-8575QtzmbmMtsp Aichholz A[employer]URAL PRODUCE WASHER Work Phone: [facility] CWM FMComment on above:Chronic gout of multiple sites, unspecified cause (Primary Dx)Type 2 diabetes mellitus with diabetic microalbuminuria, without long-term current use of insulin (HCC)Start: 08-02-2024 End: 86-82-1172PycetwXtmp Naderer MD Work Phone: [facility] C[facility] FMComment on above:Lumbar back painStart: 07-29-2024 End: 01-78-3367Hwckwg Akil Bennett MD Work Phone: [facility] ENDOCRINOLOGYStart: 07-29-2024 End: 15-38-3225Iulygn Akil Bennett MD Work Phone: [facility] ENDOCRINOLOGYStart: 07-29-2024 End: 64-19-1617Mqhvmy outpatient new 45 minutesKasi Bennett MD Work Phone: [facility] ENDOCRINOLOGYComment on above:Hypercalcemia (Primary Dx); Low serum parathyroid hormone (PTH); Vitamin D deficiencyStart: 07-29-2024 End: 37-00-7961qslcyaukzxTJQBA F SABBAGHNot AvailableStart: 07-26-2024 End: 28-94-4392BuqqocPook Aichholz A[employer]IC[employer]URAL PRODUCE WASHER Work Phone: [facility] C[facility] FMComment on above:Lumbar back painStart: 07-22-2024 End: 37-66-6203RdtiutQysd Naderer MD Work Phone: [facility] CWM FMComment on above:Type 2 diabetes mellitus with diabetic microalbuminuria, without long-term current use of insulin (C MS/HCC)Start: 07-14-2024 End: 06-92-4427Soyvka Lakshmi Vera A[employer]URAL PRODUCE WASHER Work Phone: noms CWM FMComment on above:Low serum parathyroid hormone (PTH) (Primary Dx)Start: 07-09-2024 End: 82-63-4357Vdfjdftwk Result EncounterLisa Aichholz A[employer]ICULTURAL PRODUCE WASHER Work Phone: noms External Department UnsolicitedStart: 07-09-2024 End: 65-63-1505Yuqajsqit Result EncounterLisa Aichholz A[employer]IC[employer]URAL PRODUCE WASHER Work Phone: noms External Department UnsolicitedStart: 06-23-2024 End: 50-58-3994ZujgltTynz Aichholz A[employer]ICULTURAL PRODUCE WASHER Work Phone: noms CWM FMComment on above:Diabetic polyneuropathy associated with type 2 diabetes mellitus (CMS/HCC)Start: 06-22-2024 End: 24-98-7546qiwqujwicgVzljyzn Vytautas Giedraitis MDFacility:PM [place] Start: 06-11-2024 End: 99-42-5322NstqqgElew Aichholz A[employer]URAL PRODUCE WASHER Work Phone: noms CWM FMComment on above:Acute non-recurrent sinusitis of other sinus (Primary Dx)Start: 06-03-2024 End: 72-27-0734Oyajiv OnlyLisa Aichholz A[employer]ICULTURAL PRODUCE WASHER Work Phone: noms CWM FMComment on above:Hypercalcemia (Primary Dx); Low serum parathyroid hormone (PTH)Start: 05-28-2024 End: 93-62-1383Ezhjunl encounter procedureCounts Include [facility] Work Phone: Start: 05-28-2024 End: 61-14-3230Kskaxrf encounter procedureLicking [facility]-Jenise Orona OrthoStart: 05-28-2024 End: 37-90-7840fhlioyzcvwUoidxx Everardo Banks IIFacility:[facility] Centertart: 05-22-2024 End: 39-61-4581Dpeysc OnlyLisa Aichholz A[employer]ICULTURAL PRODUCE WASHER Work Phone: noms CWM FMComment on above:Hypercalcemia (Primary Dx) Start: 05-21-2024 End: 34-10-5728Qjpvqwuhx Result EncounterAmeena Vera AGRICULTURAL PRODUCE WASHER Work Phone: noms External Department UnsolicitedStart: 05-21-2024 End: 45-19-5984Cnmvdrxdm Result EncounterAmeena Vera A[employer]ICULTURAL PRODUCE WASHER Work Phone: noms External Department UnsolicitedStart: 05-19-2024 End: 79-29-0622Wuwwma flowsheetAmeena Davisholz A[employer]URAL PRODUCE WASHER Work Phone: noms CWM FMStart: 05-19-2024 End: 81-20-1514Gljmou flowsCarlos Davisholz AGRICULTURAL PRODUCE WASHER Work Phone: noms CWM FMStart: 05-19-2024 End: 97-04-0977qzdxzsgtdzIAAO AICHHOLZNot AvailableStart: 05-19-2024 End: 23-10-7205Ekurhc outpatient visit 25 minutesAmeena Vera A[employer]ICULTURAL PRODUCE WASHER Work Phone: noms CWM FMComment on above:Type 2 diabetes mellitus with diabetic microalbuminuria, without long-term current use of insulin (C [facility]) (Primary Dx); Morbid (severe) obesity due to excess calories ([facility]); Other hyperlipidemia; Body mass index (BMI) 39.0-39.9, adult; JANETT (obstructive sleep apnea); Bilateral lower extremity edema; Migraine with aura and without status migrainosus, not intractable ([facility]); Cigarette nicotine dependence without complication; Hypercalcemia; Essential hypertension; Elevated blood uric acid level; Lumbar back pain; Gastroesophageal reflux disease without esophagitis; Chronic gout of multiple sites, unspecified cause; Acute pain of right knee; Diabetic polyneuropathy associated with type 2 diabetes mellitus ([facility])Start: 05-06-2024 End: 30-47-4764UjhdygIgtw Naderer MD Work Phone: noms CWM FMComment on above:Bilateral lower extremity edema (Primary Dx)Start: 04-21-2024 End: 16-57-0936Ofddqa Justo Wilkerson NP Work Phone: aTRAV BELLEVUEStart: 04-21-2024 End: 40-56-4389Gxvioy Justo Wilkerson A[employer]IC[employer]URAL PRODUCE WASHER Work Phone: aTRAV BELLSWATIUEStart: 04-21-2024 End: 51-10-0163jlahqdgduhXDKLQL GILLZACHERYNot AvailableStart: 04-21-2024 End: 48-24-8736Mlehtd outpatient visit 25 minutesZa Wilkerson [employer] Work Phone: aTRAV BELLEVUEComment on above:JANETT (obstructive sleep apnea) (Primary Dx); Hypersomnia; Snoring; Primary insomnia; Tobacco abuseStart: 03-30-2024 End: 46-82-6716Tfkfun Estefany Drake [employer] Work Phone: NOZ[facility] CW FMStart: 03-30-2024 End: 60-62-4439Kjwopu Estefany Drake [employer] Work Phone: NOHE CW FMStart: 03-30-2024 End: 39-33-1331Kfbyto outpatient visit 15 minutesAlicia Monroy MD Work Phone: [facility] DERMComment on above:Hidradenitis suppurativa (Primary Dx); Lentigines; Melanocytic nevus of trunk; Congenital non-neoplastic nevus; History of basal cell carcinomaStart: 03-30-2024 End: 93-11-8397QvpghiYlujSavannah [place] CWM FMComment on above:Type 2 diabetes mellitus with diabetic microalbuminuria, without long-term current use of insulin (CMS/HCC)Start: 03-30-2024 End: 85-58-9479Odncwf outpatient visit 15 minutesSonam Drake [employer]ODUCE [employer] Work Phone: NOMS CWM FMComment on above:Type 2 diabetes mellitus with diabetic microalbuminuria, without long-term current use of insulin (C MS/HCC) (Primary Dx); Essential hypertension; Other hyperlipidemia (CMS/HCC); JANETT (obstructive sleep apnea); Type 2 diabetes mellitus without complication, without long-term current use of insulin ([facility])Start: 03-18-2024 End: 61-24-9130Ncwdbprrq Result EncounterGeneric External Data ProviderNOMS External Department UnsolicitedStart: 03-18-2024 End: 51-98-7218Wiovsiamz Result EncounterGeneric External Data ProviderNOMS External Department UnsolicitedStart: 03-16-2024 End: 81-66-6989SqhaqfHcyfqrvc Drake [employer]ODU[employer] Work Phone: NOMS CWM FMComment on above:Gastroesophageal reflux disease without esophagitisStart: 03-09-2024 End: 18-97-2790LttsnzNpgatywn Drake [employer]ODU[employer]ER Work Phone: noms CWM FMComment on above:Osteoporosis, unspecified osteoporosis type, unspecified pathological fracture presence ([facility])Start: 03-03-2024 End: 55-66-6341Gclafx flowsheetSonam Marrtrick [employer]ODU[employer]ER Work Phone: NOMS CW FMStart: 03-03-2024 End: 80-64-5403Khjwck flowsheetBrraoany Drake [employer]ODU[employer]ER Work Phone: noms CWM FMStart: 03-03-2024 End: 12-55-6790ctbpokvqtsVWBPWREP FITZPATRICMIGUELINAot AvailableStart: 03-03-2024 End: 16-24-9904Lijuwl outpatient visit 10 minutesSonam Princek [employer]ER Work Phone: NOMS CWM FMComment on above:Upper respiratory infection with cough and congestion (Primary Dx); Lumbar back pain; Migraine with aura and without status migrainosus, not intractable ([facility]); Type 2 diabetes mellitus with diabetic microalbuminuria, without long-term current use of insulin ([facility]); Diabetic polyneuropathy associated with type 2 diabetes mellitus ([facility]); Other hyperlipidemia ([facility])Start: 01-30-2024 End: 02-84-1621Hkligffyt Result EncounterGeneric External Data ProviderNOMS External Department UnsolicitedStart: 01-30-2024 End: 99-85-7785Wbiewwhbq Result EncounterGeneric External Data ProviderNOMS External Department UnsolicitedStart: 01-30-2024 End: 66-50-7797BscncgYgtx Leonel [place] CWM FMComment on above:Lumbar back pain (Primary Dx); Type 2 diabetes mellitus with diabetic microalbuminuria, without long-term current use of insulin ([facility])Start: 01-14-2024 End: 45-60-1916DryhbaWopl Leonel [place] CWM FMComment on above:Lumbar back pain Start: 12-31-2023 End: 01-70-8031Mcelfiodd Result EncounterBrzulema Princek [employer]ER Work Phone: noms External Department UnsolicitedStart: 12-31-2023 End: 30-18-6393Gubsoxfjp Result EncounterBrittcarlene MarrDrake [employer]ER Work Phone: noms External Department UnsolicitedStart: 12-31-2023 End: 93-91-1721Qdxpch consultation new/estab patient 60 minNicole Solo DO Work Phone: noms [address] R[address]TEComment on above:JANETT (obstructive sleep apnea) (Primary Dx); Hypersomnia; Snoring; Primary insomnia; Tobacco abuseStart: 12-31-2023 End: 10-58-9506wwnxfgkxfiWDJXRO DANNERNot AvailableStart: 12-30-2023 End: 10-39-6813Mrqxox flowsheetSonam Marrtrick [employer]ER Work Phone: [facility]S CWM FMStart: 12-30-2023 End: 94-35-1151Cndgkv flowsheetBrzulema Marrtrick [employer]ER Work Phone: [facility] CWM FMStart: 12-30-2023 End: 94-90-0975Sfsqcg outpatient visit 15 minutesBrzulema Princek [employer]ER Work Phone: NOMS CWM FMComment on above:Type 2 diabetes mellitus with diabetic microalbuminuria, without long-term current use of insulin ([facility]) (Primary Dx); Essential hypertension; Other hyperlipidemia ([facility]); Snoring; Mixed urge and stress incontinenceStart: 12-30-2023 End: 20-23-1723nhgdylycyiKQMGQWYA FITZPATRICKNot AvailableStart: 12-23-2023 End: 28-36-0159Cslmoevdq Result EncounterGeneric External Data ProviderNOMS External Department UnsolicitedStart: 12-23-2023 End: 31-55-8755Wfpliovhg Result EncounterGeneric External Data ProviderNOMS External Department UnsolicitedStart: 12-17-2023 End: 13-95-0294MjgxkxKlpb Howard MANOMS CWM FMComment on above:Migraine with aura and without status migrainosus, not intractable ([facility]); Diabetic polyneuropathy associated with type 2 diabetes mellitus ([facility])Start: 12-17-2023 End: 81-50-0604QvbefjUxrrkpzz Drake [employer] Work Phone: NOMS CWM FMComment on above:Gout, unspecified cause, unspecified chronicity, unspecified siteStart: 11-04-2023 End: 43-11-5742OemacyHhmeiw Robles MANOMS CWM FMComment on above:Gout, unspecified cause, unspecified chronicity, unspecified siteStart: 11-01-2023 End: 85-26-5151CnapefNwuuqh Robles MANOMS CWM FMComment on above:Diabetic polyneuropathy associated with type 2 diabetes mellitus ([facility]/HCC)Start: 10-17-2023 End: 78-68-0276Pnxcahcmq Result EncounterGeneric External Data ProviderNOMS External Department UnsolicitedStart: 10-17-2023 End: 80-93-7493Rkistlajf Result EncounterGeneric External Data ProviderNOMS External Department UnsolicitedStart: 09-37-4750fpjwtxpfayHizjjocq:[place] Start: 10-03-2023 End: 79-09-2476Gulmjq flowsheetBrittany Drake [employer]ER Work Phone: noMS CWM FMStart: 10-03-2023 End: 26-26-4879Ynknpl flowsheetBrittany Drake [employer]ODU[employer] W[employer]ER Work Phone: noms CW FMStart: 10-03-2023 End: 64-69-7544Mltvtk outpatient visit 25 minutesLucyzulema Vidal [employer]ODU[employer]ER Work Phone: noms CWM FMComment on above:Essential [...] urge and stress incontinence; SnoringStart: 09-13-2023 End: 95-10-1360Kawdvxedn Result EncounterGeneric External Data ProviderNOMS External Department UnsolicitedStart: 09-13-2023 End: 56-92-2472Bprrlxlnf Result EncounterGeneric External Data ProviderNOMS External Department UnsolicitedStart: 09-04-2023 End: 51-28-8374Dbnpqivyi Result EncounterGeneric External Data ProviderNOMS External Department UnsolicitedStart: 09-04-2023 End: 87-45-2718Wwtscnkiz Result EncounterGeneric External Data ProviderNOMS External Department UnsolicitedStart: 08-14-2023 End: 93-21-0715Mhrndefbm Result EncounterGeneric External Data ProviderNOMS External Department UnsolicitedStart: 08-14-2023 End: 74-29-1644Rgztajesf Result EncounterGeneric External Data ProviderNOMS External Department UnsolicitedStart: 07-24-2023 End: 66-87-0536Zuxcfbrip Result EncounterGeneric External Data ProviderNOMS External Department UnsolicitedStart: 07-24-2023 End: 76-42-0274Yfqyuhipm Result EncounterGeneric External Data ProviderNOMS External Department UnsolicitedStart: 07-03-2023 End: 63-79-6114Doohtlcpa Result EncounterGeneric External Data ProviderNOMS External Department UnsolicitedStart: 07-03-2023 End: 25-28-2639Nthwdlaio Result EncounterGeneric External Data ProviderNOMS External Department UnsolicitedStart: 06-08-2023 End: 76-61-1646Tfukiwvhz Result EncounterAnahi Soriano TARYN Work Phone: noms External Department UnsolicitedStart: 06-08-2023 End: 03-27-1058Ushljrmew Result EncounterAnahi Soriano TARYN Work Phone: noms External Department UnsolicitedStart: 06-06-2023 End: 39-53-3268Oztqpqclz Result EncounterGeneric External Data ProviderNOMS External Department UnsolicitedStart: 06-06-2023 End: 36-38-8845Foxeqfkek Result EncounterGeneric External Data ProviderNOMS External Department UnsolicitedStart: 05-22-2023 End: 24-79-7191Dmfgbwhus Result EncounterGeneric External Data ProviderNOMS External Department UnsolicitedStart: 05-22-2023 End: 01-82-2255Rdkryvuqh Result EncounterGeneric External Data ProviderNOMS External Department UnsolicitedStart: 04-30-2023 End: 78-11-5649evbpefugfwPqznfvovlPaulding County Hospital Work Phone: Start: 04-30-2023 End: 63-99-3069Wktovpz encounter [facility] Work Phone: Start: 89-20-4437Kmbzxr Neo Connelly MD Work Phone: noms [facility] IMComment on above:Diabetic polyneuropathy associated with type 2 diabetes mellitus (CMS/HCC) (Primary Dx)Start: 03-20-2023 End: 55-01-0388Axhatrmjs Result EncounterGeneric External Data ProviderNOMS External Department UnsolicitedStart: 03-20-2023 End: 76-97-5010Mbblfxauy Result EncounterGeneric External Data ProviderNOMS External Department UnsolicitedStart: 03-19-2023 End: 87-02-9179btnvptxqtcJxzibrt [place] Other [facility] [employer] Other Start: 31-37-4567Ynirpy outpatient visit 15 minutes Ana Luisa KirstenFPG [facility] OrthopedicsStart: 01-23-2023 End: 81-11-5268gqzmqpsitmFlnbvor [place] Other [employer] Other Start: 80-97-2621Qnkoew outpatient visit 15 minutes Ana Luisa GeraldoG [facility] OrthopedicsStart: 01-18-2023 End: 69-60-4823wnvjftljtfAdmcoi Dymond Other [employer] Other Start: 92-84-5024Cepkwk outpatient visit 15 minutes Elle HendricksFPG [facility] Care ClydeStart: 09-19-2022 End: 96-94-3558yamlvprwoyWbjckax [place] Other [employer] Other Start: 87-06-6577Ubnldtdwc encounterColleen Charmaine [facility] OrthopedicsStart: 91-81-1292kfzeqxyjgmOQ JONATHAN HOUSEFacility:A5Ztzga: 06-07-2022 End: 55-89-8599nygfcojxvuDK JONATHAN HOUSEFacility:R8Ztyqm: 05-02-2022 End: 36-48-4357bpmskfukedJrvkqxq [place] Other [employer] Other Start: 25-38-1088Mmmolb outpatient new 30 minutes Ana Luisa GeraldoG [facility] OrthopedicsStart: 04-12-2022 End: 75-82-6085nwvqhbhchkDX JONATHAN HOUSEFacility:Y2Nefns: 03-08-2022 End: 82-31-3843cpvusyolqpHM JONATHAN HOUSEFacility:W0Iwthp: 02-16-2022 End: 28-84-9503xsworvsagqQS JONATHAN HOUSEFacility:N7Yvvzl: 02-09-2022 End: 24-39-2151lensqgoyazPA RICARDO HOLM .Facility:J8Awnbe: 11-16-2021 End: 55-07-2207jnkpejivufGH JONATHAN HOUSEFacility:X9Wpgxo: 11-01-2021 End: 97-01-8818qaydmklmayUPQR SOLIS .Facility:T6Yfgpv: 08-30-2021 End: 41-04-0948zcndwyxwgeSQBWJ [facility]: [facility]-30[facility]20[facility] End: 49-44-0177Vaqtbsvfoa hospital visit by physicianSr [place] DO Work Phone: mthz LaboratoryComment on above:Routine cervical smear Start: 18-71-0643Dllovtzlk for general adult medical examination without abnormal findingsDR RICARDO S HOLM .[facility]: 08-[facility]2021 End: 60-60-4203Msowctadn for general adult medical examination without abnormal findingsDR RICARDO S HOLM .Facility:G0Jlwgp: 08-09-2021 End: 01-26-8137vlzesemaehIV RICARDO S HOLM .Facility:H9Rvltq: 07-19-2021 End: 54-06-7733pvjpjpwhuyFFRC SOLIS .Facility:H2Wjvzn: 07-05-2021 End: 90-74-3972azbwiwsshoVTSPW D [facility]Fac[facility]:W6Birat: 07-04-2021 End: 92-11-3013zqwrwxxkwbKU RICARDO S HOLM .Facility:H4Jncda: 06-20-2021 End: 08-99-2503athzbybezqKF RICARDO S HOLM .Facility:[address] DateProcedureProcedure DetailPerforming ClinicianStart: 18-55-8064Ixkurftups glycosylated w5kFztt Chuy [employer]ODUCE [employer]ER Work Phone: Start: 43-70-0836TOT BASIC METABOLIC PANELLisa Chuy [employer] PRODUCE W[employer]ER Work Phone: Start: 27-81-1265Hervp radiography of pelvisStart: 59-54-5090O-ray of right knee, four viewsStart: 63-23-2347Jmxltqvkch examination knee 3 viewsLisa Vera [employer]ODUCE W[employer]ER Work Phone: Start: 75-53-6565XGQ CBC WITH AUTO DIFFLisa Chuy [employer] PRODUCE W[employer]ER Work Phone: Start: 46-88-6207Cfdkqtfmvz glycosylated v4mBmvf Chuy AGRICULTURAL PRODUCE W[employer]ER Work Phone: Start: 37-82-9839Htqiyqmqcq glycosylated x1zJjtnjxgiSonam Drake [employer] PRODUCE W[employer]ER Work Phone: Start: 05-79-4836XI TOMOSYNTHESIS SCREENING BIGeneric External Data ProviderStart: 37-67-2295ArtrimhmmiuVasmvni ProviderStart: 70-81-1235HH FOOT LT MIN 3VGeneric External Data ProviderStart: 76-93-4852EHM CBC WITH AUTO DIFFBrittany Vidal [employer]IC[employer] PRODUCE WASHER Work Phone: Start: 04-27-1351YL FOOT LT MIN 3VGeneric External Data ProviderStart: 48-57-2319RN FOOT LT MIN 3VGeneric External Data Provider Start: 23-43-4895NH FOOT LT WO CONGeneric External Data ProviderStart: 04-74-1763EV FOOT LT MIN 3VGeneric External Data ProviderStart: 79-89-3569CX FOOT LT MIN 3VGeneric External Data ProviderStart: 38-11-1495PN TIBIA FIBULA LT 2VGeneric External Data ProviderStart: 68-83-9399SC FOOT LT MIN 3VGeneric External Data ProviderStart: 03-15-9312NQ FOOT LT MIN 3VGeneric External Data ProviderStart: 17-98-8766ZA FOOT LT WO Felicia CENTENO Work Phone: Start: 47-23-2081RIA 12-LEADAnahi CENTENO Work Phone: Start: 95-87-9900VQ LUMBAR SPINE WO CONGeneric External Data ProviderStart: 82-92-0495KQ LUMBAR SPINE 6V W BENDINGGeneric External Data ProviderStart: 88-78-5380SE TOMOSYNTHESIS SCREENING BIGeneric External Data ProviderStart: 51-53-9644IGT LIPID PROFILE (FASTING)Shaikh Maricel HOLLIS Work Phone: Start: 41-58-9224ELDN LIVER Gina Connelly MD Work Phone: Start: 34-34-7296WT DEXA AXIAL SKELETONGeneric External Data ProviderStart: 94-38-6694CnaktqukthcWcikdc Fawwad MD Work Phone: Start: 33-98-7295Opjsvhndztv observation [Identifier] in Cervix by Cyto stainSr Grace DO Work Phone: Plan of Treatment DateCare ActivityDetailAuthorStart: 28-48-8010Akymjbyck for malignant neoplasm of colonNOMS HealthcareStart: 57-42-7903Ivdywxtyr for malignant neoplasm of colonNOMS HealthcareStart: 28-29-0425Wzzag screening for proteinDiabetes: Urine Protein ScreeningNOMS HealthcareStart: 05-03-2025 End: 30-29-5072Xhtnvym encounter ewcjzuzby82/23/2026 1:00 PM EDT Office Visit [facility] [address] [place] [address] Kasi Bennett MD [address] [place] [address] [facility]ocrinologyStart: 04-06-2025 End: 57-82-9513Pgxxder encounter flstduoob98/24/2026 1:15 PM EST Office Visit [facility] [address] [place] [id number] Alicia Monroy MD [address] [place] [address] [facility]ermatologyStart: 03-30-2025 End: 54-80-4591Jcxlzmq encounter procedureNOMS SWS DERMStart: 03-18-2025 Screening for malignant neoplasm of breastMammogramNOMS HealthcareStart: 68-43-4220Zmmcbuiqyt A1c measurementDiabetes: Hemoglobin H1ISJRZ Healthcare Start: 87-69-7782Xqjjt screening for proteinDiabetes: Urine Protein Screening NOMS HealthcareStart: 11-23-2024 End: 48-37-9594Smrvnhh encounter ketcbroeo83/13/2025 1:00 PM EDT Office Visit [facility] [address] [place] [address] Ameena Vera, RONALDO [address] [place] [address] [facility] FMStart: 73-76-5703Qlbeoujlet A1c measurement Diabetes: Hemoglobin P9JRELT HealthcareStart: 11-02-2024 End: 705231-kmaoblsmbsabld D3 [Mass/volume] in Serum or PlasmaVitamin D 25 hydroxy Total Lab Routine Low serum parathyroid hormone (PTH) Hypercalcemia Vitamin D deficiency Hypomagnesemia Expected: 11/02/2024 (Approximate), Expires: 11/02/2025[facility] HealthcareComment on above:Expected: 11/02/2024 (Approximate), Expires: 11/02/2025Start: 11-02-2024 End: 63-88-7462Weqfesyqt [Mass/volume] in Serum or PlasmaMagnesium Lab Routine Low serum parathyroid hormone (PTH) Hypercalcemia Vitamin D deficiency Hypomag nesemia Expected: 11/02/2024 (Approximate), Expires: 11/02/2025[facility] Healthcare Work Phone: Comment on above:Expected: 11/02/2024 (Approximate), Expires: 11/02/2025Start: 11-02-2024 End: 08-10-8148Nghykcufcx.intact and Calcium panel - Serum or PlasmaPTH, intact and calcium Lab Routine Low serum parathyroid hormone (PTH) Hypercalcemia Vitamin D deficiency Hypomagnesemia Expected: 11/02/2024 (Approximate), Expires: 11/02/2025[facility] HealthcareComment on above:Expected: 11/02/2024 (Approximate), Expires: 11/02/2025Start: 11-02-2024 End: 38-96-4806Hyjyl function panelRenal function panel Lab Routine Low serum parathyroid hormone (PTH) Hypercalcemia Vitamin D deficiency Hypomagnesemia Expected: 11/02/2024 (Approximate), Expires: 11/02/2025[facility] HealthcareComment on above:Expected: 11/02/2024 (Approximate), Expires: 11/02/2025Start: 11-02-2024 End: 21-87-7022Zukddab encounter procedureNOMS [facility]rona EndocrinologyComment on above:ArrivedStart: 10-26-2024 End: 38-23-4376Eglkmka encounter rramlhfnt75/15/2025 1:20 PM EDT Office Visit FARSHAD QASIM [address] [facility] [place] [address] Za Wilkerson NP [address] [place], [place] FARSHAD DÍAZtart: 10-19-2024 End: 43-73-8099Doccswb encounter qhcdxfnma27/08/2025 11:30 AM EDT Office Visit [facility] [address] [place] [address] Ameena Vera NP [address] [place] [address] [facility] FMStart: 80-75-0904Aahnwsjvo vaccinationASH[facility] HealthcareStart: 09-30-2024 End: 24-54-2570Dmeqwfh encounter procedureNO ENDOCRINOLOGYStart: 09-27-2024 Hemoglobin A1c measurementDiabetes: Hemoglobin Q6PMTWZ HealthcareStart: 14-26-2280Cqnkeqxcj for malignant [facility]DOM[facility] Start: 08-20-2024 End: 66-97-8777Tvsusle encounter iqifyffru98/10/2025 10:30 AM EDT Office Visit [facility] [address] [place] [address] Ameena Vera NP [address] [place] [address] [facility] FMStart: 07-29-2024 End: 32-75-837506746840-gmoikdyxxszitg D3 [Mass/volume] in Serum or PlasmaVitamin D 25 hydroxy Total Lab Routine Low serum parathyroid hormone (PTH) Hypercalcemia Vitamin D deficiency Expected: 07/29/2024 (Approximate), Expires: 07/29/2025[facility] HealthcareComment on above:Expected: 07/29/2024 (Approximate), Expires: 07/29/2025Start: 07-29-2024 End: 75-07-1303Qqnmgciss [Mass/volume] in Serum or PlasmaMagnesium Lab Routine Low serum parathyroid hormone (PTH) Hypercalcemia Expected: 07/29/2024 (Approx imate), Expires: 07/29/2025[facility] Healthcare Work Phone: Comment on above:Expected: 07/29/2024 (Approximate), Expires: 07/29/2025Start: 07-29-2024 End: 31-49-2325Seyzrbbwdt.intact and Calcium panel - Serum or PlasmaPTH, intact and calcium Lab Routine Low serum parathyroid hormone (PTH) Hypercalcemia Expected: 07/29/2024 (Approximate), Expires: 07/29/2025[facility] HealthcareComment on above:Expected: 07/29/2024 (Approximate), Expires: 07/29/2025Start: 07-29-2024 End: 41-39-7101Ryhksyu encounter procedureNOSAINT FRANCIS [facility] ENDOCRINOLOGYComment on above: Low serum parathyroid hormone (PTH)Start: 07-29-2024 End: 01-00-2695Tnyuu function panelRenal function panel Lab Routine Low serum parathyroid hormone (PTH) Hypercalcemia Expected: 07/29/2024 (Approximate), Expires: 07/29/2025[facility] HealthcareComment on above:Expected: 07/29/2024 (Approximate), Expires: 07/29/2025Start: 96-22-5036Pbsmn screening for protein Diabetes: Urine Protein ScreeningASH[facility] HealthcareStart: 07-03-2024 End: 059224-hduzqwyzdgsewj D3 [Mass/volume] in Serum or PlasmaVitamin D 25 hydroxy Lab Routine Hypercalcemia Expected: 07/03/2024 (Approximate), Expires: 06/03/2025[facility] HealthcareComment on above:Expected: 07/03/2024 (Approximate), Expires: 06/03/2025Start: 07-03-2024 End: 61-26-5410Fcyht metabolic 1998 panel - Serum or PlasmaBasic metabolic panel Lab Routine Hypercalcemia Low serum parathyroid hormone (PTH) Expected: 2024 (Approximate), Expires: 06/03/2025[facility] HealthcareComment on above:Expected: 07/03/2024 (Approximate), Expires: 06/03/2025Start: 07-03-2024 End: 17-74-5806Yboctlghxx.intact [Mass/volume] in Serum or PlasmaPTH, intact Lab Routine Low serum parathyroid hormone (PTH) Expected: 07/03/2024 (Approximate), Expires: 06/03/2025[facility] Work Phone: Comment on above:Expected: 07/03/2024 (Approximate), Expires: 06/03/2025Start: 06-25-2024 End: 95-63-3186Etugthj encounter procedureNOMS CWM FMStart: 05-22-2024 End: 91-70-0857Vbxfzxmvdk.intact [Mass/volume] in Serum or PlasmaPTH, intact Lab Routine Hypercalcemia Expected: 05/22/2024 (Approximate), Expires: 05/22/2025 [facility] Work Phone: Comment on above:Expected: 05/22/2024 (Approximate), Expires: 05/22/2025Start: 05-19-2024 End: 115022-tmufpajxyvvdmk D3 [Mass/volume] in Serum or PlasmaVitamin D 25 hydroxy Lab Routine Hypercalcemia Expected: 05/19/2024 (Approximate), Expires: 05/19/2025[facility] HealthcareComment on above:Expected: 05/19/2024 (Approximate), Expires: 05/19/2025Start: 05-19-2024 End: 16-12-7176UIX W Auto Differential panel - BloodCBC and differential Lab Routine JANETT (obstructive sleep apnea) Cigarette nicotine dependence without complication Expected: 05/19/2024 (Approximate), Expires: 05/19/2025[facility] HealthcareComment on above:Expected: 05/19/2024 (Approximate), Expires: 05/19/2025Start: 05-19-2024 End: 20-86-0479Npuypijmxdqtt metabolic 2000 panel - Serum or PlasmaComprehensive metabolic panel Lab Routine Other hyperlipidemia Bilateral lower extremity edema Type2 diabetes mellitus with diabetic microalbuminuria, without long-term current use of insulin ([facility]) Hypercalcemia Essential hypertension Expected: 05/19/2024 (Approximate), Expires: 05/19/2025[facility] HealthcareComment on above: Expected: 05/19/2024 (Approximate), Expires: 05/19/2025Start: 05-19-2024 End: 76-24-4393Xlxmu 1996 panel - Serum or PlasmaLipid panel Lab Routine Other hyperlipidemia Expected: 05/19/2024 (Approximate), Expires: 05/19/2025[facility] Work Phone: Comment on above:Expected: 05/19/2024 (Approximate), Expires: 05/19/2025Start: 05-19-2024 End: 38-16-3460Usutaapmzihc/Creatinine panel in random UrineMicroalbumin / creatinine, urine ratio Lab Routine Type 2 diabetes mellitus with diabetic microalbuminuria, without long-term current use of insulin ([facility]) Essential hypertension Expected: 05/19/2024 (Approximate), Expires: 05/19/2025[facility] HealthcareComment on above:Expected: 05/19/2024 (Approximate), Expires: 05/19/2025Start: 05-19-2024 End: 72-60-7009Sjgzvqwgwf.intact [Mass/volume] in Serum or PlasmaPTH, intact Lab Routine Hypercalcemia Expected: 05/19/2024 (Approximate), Expires: 05/19/2025 [facility] HealthcareComment on above:Expected: 05/19/2024 (Approximate), Expires: 05/19/2025Start: 05-19-2024 End: 49-39-2981Kcxmk [Mass/volume] in Serum or PlasmaUric acid Lab Routine Elevated blood uric acid level Expected: 05/19/2024 (Approximate), Expires: [facility] HealthcareComment on above:Expected: 05/19/2024 (Approximate), Expires: 05/19/2025Start: 05-19-2024 End: 79-51-4849Pttwbgzbmu complete panel - UrineUrinalysis with reflex microscopic (clean catch) Lab Routine Type 2 diabetes mellitus with diabetic microalbuminuria, without long-term current use of insulin ([facility]) Cigarette nicotine dependence without complication Essential hypertension Elevated blood uric acid level Expected: 05/19/2024 (Approximate), Expires: 05/19/2025[facility] HealthcareComment on above:Expected: 05/19/2024 (Approximate), Expires: 05/19/2025Start: 05-19-2024 End: 42-12-4709LZ Knee - right 3 ViewsXR knee 3 views right Imaging Routine Acute pain of right knee Expected: 05/19/2024 (Approximate), Expires: 05/19/2025 [facility] HealthcareComment on above:Expected: 05/19/2024 (Approximate), Expires: 05/19/2025Start: 05-19-2024 End: 88-94-4197Qjchaht encounter yvxzsrbnw85/08/2025 11:00 AM EDT Office Visit [facility] [address] [place] [address] Ameena Vera NP [address] [place] [address] [facility] FMStart: 04-21-2024 End: 74-75-1343Tulimnt encounter wpgjnnnev88/11/2025 1:00 PM EDT Office Visit [facility] [address] [place] [address] Za Wilkerson NP [address] [place], [place] FARSHAD DÍAZtart: 03-30-2024 End: 82-45-6835Omuemne encounter wmtuebbjb15/17/2025 11:05 AM EST Office Visit [facility] JAGRUTI FIGUEROA [address] [place] [address] Alicia Monroy MD [address] [place] [address] [facility] SWS DERMStart: 03-26-2024 End: 57-88-0661Qtqydii encounter ttzumdwmm39/13/2025 2:00 PM EST Office Visit [facility] CWM FM [address] [place] [address] Sonam Drake, RONALDO [address] [place] [address] [facility] CW FMStart: 03-24-2024 End: 75-31-4082Hcvjsnl encounter procedureNOADENA PIKE [facility] ROUTEStart: 15-46-8739Vlnkprhla for malignant neoplasm of breastMammogramASHLEY REGIONAL [facility] Healthcare Start: 02-27-2024 End: 44-81-1460Rdalone encounter qivayzbew28/16/2025 11:35 AM EST Office Visit [facility] JAGRUTI DERM [address] [place] [address] Alicia Monroy MD [address] [place] [address] [facility] SWS DERMStart: 02-25-2024 End: 38-06-3009Wtpjkih encounter xyjohotlq50/14/2025 3:30 PM EST Office Visit [facility] ALEX FM [address] [place] [address] Sonam Drake NP [address] [place] [address] [facility] CW FMStart: 01-10-2025Medicare Annual Wellness (AWV) Medicare Annual Wellness (AWV)[facility] HealthcareStart: 49-69-7210Lxjesbhi screening Diabetes: Retinopathy ScreeningNOHI HealthcareStart: 11-64-0679Qcmpqxswze A1c measurementDiabetes: Hemoglobin H5OQLUA HealthcareStart: 12-31-2023 End: 56-85-9888AimwcrtransxdxfPedxypbanwrwdvd Sleep Center Routine JANETT (obstructive sleep apnea) Expected: 12/31/2023 (Approximate), Expires: 12/30/2024NO Healthcare Work Phone: comment on above:Expected: 12/31/2023 (Approximate), Expires: 12/30/2024Start: 12-31-2023 End: 68-33-9751Cgzeyvp encounter kswjfvxyr91/19/2024 10:00 AM EST [facility] [address] [place] [address] Sivan Banda, DO [address] [place] [address] [facility] ROUTEStart: 12-30-2023 End: 04-69-2042AKS W Auto Differential panel - BloodCBC and differential Lab Routine Type 2 diabetes mellitus with diabetic microalbuminuria, without long- term current use of insulin (CMS/HCC) Essential hypertension Expected: 12/30/2023 (Approximate),Expires: 12/29/2024NOHI HealthcareComment on above: Expected: 12/30/2023 (Approximate), Expires: 12/29/2024Start: 12-30-2023 End: 85-54-1671Kshdqofsivtcy metabolic 2000 panel - Serum or PlasmaComprehensive metabolic panel Lab Routine Type 2 diabetes mellitus with diabetic microalbuminuria, without long-term current use of insulin (CMS/HCC) Essential hypertension Expected: 12/30/2023 (Approximate), Expires: 12/29/2024NOHI HealthcareComment on above:Expected: 12/30/2023 (Approximate), Expires: 12/29/2024Start: 12-30-2023 End: 04-49-8446Blzicccxcg A1c/Hemoglobin.total in BloodHemoglobin A1c Lab Routine Type 2 diabetes mellitus with diabetic microalbuminuria, without long-term current use of insulin (CMS/HCC) Expected: 12/30/2023 (Approximate), Expires: 12/29/2024NOHI HealthcareComment on above:Expected: 12/30/2023 (Approximate), Expires: 12/29/2024Start: 12-30-2023 End: 82-98-0812Rxdkmsb encounter huvdscabf38/18/2024 10:30 AM EST Office Visit [facility] ALEXM FM [address] [place] [address] Sonam Drake NP [address] [place] [address] [facility] CWM FMStart: 11-04-2023 End: 96-83-7856Njyfgyb encounter icctnteqc40/23/2024 2:30 PM EDT Office Visit [facility] [place] [address] [place] [address] Sivan Banda, [address] [place] [address] [facility] ROUTEStart: 21-35-1912Nidqxinfc vaccinationInfluenza Vaccine (#1)[facility] HealthcareStart: 06-64-3951Vylmpnoyk vaccinationInfluenza Vaccine (#1)[facility]OM[facility] HealthcareComment on above:Postponed from 10/12/2022 (Patient Refused)Start: 05-02-2023 End: 37-01-0318Lwhlqwu encounter kpittkpdg22/21/2024 2:00 PM EDT Office Visit [facility] SHIVANI IM [address] [place] [address] Shaikh Connelly MD [address] [place] [address] N[facility] CWM IMStart: 17-67-3692Ymqyprrtfl A1c measurement Diabetes: Hemoglobin H9BMZTS HealthcareStart: 09-04-2022 End: 40-03-9016Xpwkusm encounter fkwudbohe87/25/2023 Office Visit Obstetrics and Gynecology Radha Barclay, [place] - CRISTAL [address] [place] [address] [facility] OBSTETRICS & GYNECOLOGY [facility] Centertart: 75-73-9825Ncglmrxsk vaccinationFlu vaccine (#1)[facility]ITALStart: 24-07-5364Mhofnnxhi for malignant neoplasm of breastBreast cancer screenCarilion Tazewell Community Hospitalart: 10-21-2013 Shingles vaccine (1 of 2)Shingles vaccine (1 of 2)[facility] Hospitalart: 05-35-5939Cydmhanqx for malignant neoplasm of colonB[facility] Start: 98-23-1450Czrhu panelLipidsDOMINION HOSPITALStart: 10-21-1998 Diabetes screenDiabetes screenDOMINION HOSPITALStart: 46-54-1161Kusjllpue for malignant neoplasm of cervixCarilion Tazewell Community Hospitalart: 10-21-1982 DTaP/Tdap/Td vaccine (1 - Tdap)DTaP/Tdap/Td vaccine (1 - Tdap)[facility] Hospitalart: 25-20-7237Liljs screening for proteinDiabetes: Urine Protein ScreeningWashington County Memorial HospitalStart: 85-73-5210Gtnclynsr C screeningHepatitis C screen [facility] Hospitalart: 62-36-5490CXH screeningHIV [facility] Hospitalart: 12-35-5536Vlsijhtomj ScreenDepression [facility]art: 37-08-6881RVWAU-19 Vaccine (#1)COVID-19 Vaccine (#1)[facility] Hospitalart: 06-06-4832Pmflrexkm for malignant neoplasm of colonWashington County Memorial Hospital End: 81-43-1771Xjrqnfdkbhmmy procedure, preparation of smear, genital sourcePAP SMEAR Lab Routine Routine cervical smear 1 Occurrences starting 08/30/2021 until 08/30/2021[facility] Work Phone: Comment on above:1 Occurrences starting 08/30/2021 until 08/30/2021Microalbumin/Creatinine panel in random UrineMicroalbumin / creatinine urine ratio Lab Routine Type 2 diabetes mellitus with diabetic microalbuminuria, without long-term current use of insulin ([facility]) Essential hypertension Ordered: 12/30/2023[facility] Work Phone: Comment on above:Ordered: 4Patient Education Low back pain in adultsSelect [facility] Work Phone: xr Wrist - left GE 3 [facility] Immunizations Immunization DateImmunizationNotesCare WghjljzxReaxkxdn36-99-0066tipeuhzdc, injectable, quadrivalent, preservative [facility] 03-21-4538wljvtbujj virus vaccine, unspecified formulationSonam Drake NP Work Phone: [facility] Payers DatePayer CategoryPayerPolicy [id number] Health Insurance 1.2.840.382867.1.13.693.2.7.9.868231.267904.61170-11-7912Dklcmqz 1.2.840.478895.1.13.693.2.7.3.325732.39194-31-1235Zffevac8/941030-19-1242 Medicare1.2.840.898135.1.13.693.2.7.3.948[id number] 2.0.1.469844.3.579.2.23252-21-4333Szxsqyl2458985 2.840.1.009007.3.579.2.43415-27-8744Qqlhxju3749892 2.840.1.659501.3.579.2.43083-81-4169Hujgvbn8112403 2.840.1.952849.3.579.2.45589-98-4759Dutcgzm5488153 2.840.1.034496.3.579.2.72966-42-5785Nipojtg0464177 2.16.840.1.792393.3.579.2.46676-41-4069Jnrpyuw2898054 2.16.840.1.552143.3.579.2.34516-61-3923Ijhivuj9042133 2.16.840.1.781054.3.579.2.57795-80-1152Xtrhkcf7172845 2.16.840.1.046177.3.579.2.30951-45-3315Unmbwsq4915014 2.16840.1.911639.3.579.2.23453-20-4960Aqnlxen8573099 2.840.1.925588.3.579.2.47599-49-1721Evlhazr2875376 2.840.1.520173.3.579.2.65038-65-5169Ohkmyhp0170562 2.840.1.519476.3.579.2.52772-90-4615Phpjetp0327540 2.840.1.738318.3.579.2.11581-40-2892Ycihjdk4606056 2.840.1.917855.3.579.2.14524-86-0483Oincrsj8460543 2.840.1.378031.3.579.2.97092-35-8463Ruznypd9288659 2.840.1.160959.3.579.2.77463-41-7644Xurafpa92836702 2.840.1.164326.3.579.2.836450-89-9868Gjouekk91919592 2.16840.1.569647.3.579.2.947498-23-3541Ogsrdle39539976 2.16840.1.959643.3.579.2.802241-11-2323Svvvwto8725575 2.16.840.1.875603.3.579.2.266520-82-8837Kranfak6445478 2.16.840.1.715499.3.579.2.216212-49-3794Lwifxva8445294 2.16.840.1.547682.3.579.2.308387-45-4828Vlqdajm7327791 2.16.840.1.588539.3.579.2.336765-16-7964Fqjlvjn0959049 2.16.840.1.947521.3.579.2.830039-53-1858Qdsdmdy1998699 2.840.1.141770.3.579.2.331448-21-3173Tnaosts2956751 2.840.1.245224.3.579.2.885393-63-4184Piwfqer378036115 2.840.1.154417.3.579.2.32681-83-4541Vbbjdor407549197 2..840.1.613680.3.579.2.75425-75-3534Gkyajhp799926121 2.16.840.1.544667.3.579.2.196 1960Medicare1NP7T58PM49 1.2.840.249394.1.13.239.2.7.3.038023.30575-98-5575Esezblr491221045 1.2.840.872867.1.13.239.2.7.3.335476.08739-34-8910Tvdjpxz23969056 2.16.840.1.4[id number] ua449079-2888-926z-zo6p-k16fd6367v48Oxdkoba55201708 2.16840.1.550225.3.579.2.531 Social History DateTypeDetailFacilityStart: 08-30-2021 End: 96-59-5103Mgudhxs smoking status NHISSmokes tobacco dailyVALLEY HOSPITAL [employer] Phone: History of tobacco useCigarette SmokerVALLEY HOSPITAL [employer] Phone: start: 08-30-2021 End: 34-71-1111Gljaslm use and exposureSmokeless tobacco non-userVALLEY HOSPITAL [employer] Phone: start: 34-10-6588Qofssoz intakeCurrent drinker of alcohol (finding)[facility]ENTERSum[facility] Phone: start: 26-57-0315Ozfutjo SDOH Alcohol Comment occasionalVALLEY HOSPITAL [employer] Phone: start: 05-52-9618Rzw Assigned At [facility] IslandNot on fileVALLEY HOSPITAL [employer] Work Phone: start: 08-20-2021 End: 07-30-3469Edfmvczn to SARS-CoV-2 (event)Not sureVALLEY HOSPITAL [employer] Start: 02-25-2023 End: 84-11-2808Dvd Assigned At [facility] HealthcareStart: 01-29-2023 End: 23-34-6153Othxlcg smoking status NHISEx-smokerNOHI HealthcareHistory of tobacco useCurrent smokerNOHI HealthcareStart: 01-29-2023 End: 58-07-5354Avvkrcujsk smoked current (pack per day) - Reported0.5NOHI HealthcareStart: 02-25-2023 End: 94-53-8752Jhokanf intakeLifetime non-drinker (finding)NOM HealthcareStart: 84-95-6959Dys Assigned At [facility] HospitalHistory of tobacco usePassive smokerNOMS HealthcareStart: 48-92-5012Fdw often do you need to have someone [...] the time - these days [OSQ]To some extentNOHI HealthcareStart: 74-13-4462FotQawxpl (finding)[facility] Procedure CodeEquipment CodeEquipment Original TextEquipment IdentifierDates [id number]: 06-08-2021 End: 04-21-2024 Functional Status BtjxAkqdmqqnufDtqzxsWixbjccv74-11-1974Xnkndil Health Questionnaire 2 item (PHQ- 2) [Reported][facility] HospitalFopeqtkqeh46-13-0062Vbvbj score [AUDIT-C]1 10/02/2023 11:47 AM EDT Mychart, GenericNORipley County Memorial HospitalKggdmetvqw95-09-7247Ztx often do you have a drink containing alcohol?Monthly or less 10/02/2023 11:47 AM EDT Mychart, Generic Monthly or lessNORipley County Memorial HospitalRbirnidsfd25-74-3654Amx many standard drinks containing alcohol do you have on a typical day?1 or 2 10/02/2023 11:47 AM EDT Mychart, Generic 1 or 2NOMS Edhpolhgzr79-25-0194Cdr often do you have 6 or more drinks on 1 occasion?Never 10/02/2023 11:47 AM EDT Mychart, Generic NeverNORipley County Memorial Hospital 03-41-8511Rweriqj Health Questionnaire 2 item (PHQ-2) [Reported][facility] 30-30-6292Cdaebuo Health Questionnaire 2 item (PHQ-2) [Reported][facility] 20-49-2892Lppagku Health Questionnaire 2 item (PHQ-2) [Reported][facility] 79-64-2704Lwijstn Health Questionnaire 2 item (PHQ-2) [Reported][facility] Clinical Notes 06-20-2021 to 11-02-2024 Note Date & NhazTtvpFyskzjdv27-19-9876 History of Present illness Narrative* Ahmad F [...] MORE THAN 3 TABLETS DAILY Continuous Glucose Environmental Maintenance Worker ([employer]excom G7 Environmental Maintenance Worker) device 1 each, Does not apply, Continuous [...] 6 months (around 05/02/2025). documented in this encounterWashington County Memorial HospitalZoyazdijji61-14-6967 Evaluation note* Diagnosis Onset Date Resolution Status [...] acuteOctober 2024 1:05pmWrist pain, leftacuteOctober 2024 1:05pm [facility] Work Phone: 1(488) 844-386309-08-2025 Evaluation note* Diagnosis Onset Date Resolution Status [...] Primary osteoarthritis of right kneeacuteOctober 2024 11:33am [facility] Work Phone: 1(839) 755-169107-10-2025 History of Present illness Narrative* Ameena Vera [...] 6.3%, 94% TIR , 4% high 30 jqz799, 6.3%m 93% TIR, and 5% high, 1 [...] MORE THAN 3 TABLETS DAILY Continuous Glucose Environmental Maintenance Worker (Dexcom G7 Environmental Maintenance Worker) device 1 each, Does not apply, Continuous [...] of insulin ([facility]) - Primary Check blood sugars daily, [...] legs Current meds: none documented in this [facility]07-10-2025 Telephone encounter Note* Telephone Encounter - Ameena Vera NP - 08/20/2024 11:19 AM EDT Please call [facility] in [place] for copy of diabetic eye exam [place] [facility] Xwvyuanqeh02-54-7365 Miscellaneous Notes* Telephone Encounter - Ameena Vera NP - 08/20/2024 11:19 AM EDT Please call [facility] in [place] for copy of diabetic eye exam [place] documented in this [facility]07-10-2025 Instructions* Patient Instructions* Ameena Vera NP - 08/20/2024 10:30 AM EDT Furosemide every other day 1/2 tablet documented in this [facility]06-18-2025 History of Present illness Narrative* Kasi Bennett [...] MORE THAN 3 TABLETS DAILY Continuous Glucose Environmental Maintenance Worker (Dexcom G7 Environmental Maintenance Worker) device 1 each, Does not apply, Continuous [...] 2 months (around 09/28/2024). [facility]ASH[facility] Agijbgdjqp47-40-2774 Evaluation note* Diagnosis Onset Date Resolution Status Admit Date Primary osteoarthritis of right knee acuteApril 2024 12:55pm [facility] Work Phone: 1(761) 276-869504-11-2025 History of Present illness Narrative* Ameena eVra NP - 05/22/2024 7:25 AM EDT par documented in this encounterWashington County Memorial HospitalTkbclstyeu03-44-3441 History of Present illness Narrative* Ameena Vera [...] orthopedic surgeon in the past back in [place] for that knee however she does not [...] orthopedic surgeon in the past back in [place] for that knee however she does not [...] MORE THAN 3 TABLETS DAILY Continuous Glucose Environmental Maintenance Worker (Dexcom G7 Environmental Maintenance Worker) device 1 each, Does not apply, Continuous [...] microalbuminuria, without long-term current use of insulin ([facility]) Check blood sugars daily, notify if [...] aura and without status migrainosus, not intractable ([facility]) Current meds: maxalt, depakote Other hyperlipidemia [...] microalbuminuria, without long-term current use of insulin ([facility]/HCC) Check blood sugars daily, notify if <70 [...] your machine and tubing/filters etc: [facility] Doctor that manages your JANETT: Dr Banda documented in this [facility]04-08-2025 Instructions* Patient Instructions* Ameena Vera NP - 05/19/2024 11:00 AM EDT Fasting labs Get xray knee Referral to Dr Darren Orona documented in this [facility]02-17-2025 Telephone encounter Note* Telephone Encounter - Jolly Castaneda MA - 03/30/2024 11:44 AM EST Pt's sensor fell off, and she needs them refilled please [facility] HospitalLwhsacfnho01-75-5294 Miscellaneous Notes* Telephone Encounter - Jolly Castaneda MA - 03/30/2024 11:44 AM EST Pt's sensor fell off, and she needs them refilled please documented in this encounterWashington County Memorial HospitalMpyjzjtfrr11-80-7517 History of Present illness Narrative* Alicia Monroy [...] 1 year skin check documented in this encounterWashington County Memorial HospitalLxkvbqijgc72-50-3890 History of Present illness Narrative* Sonam Drake [...] microalbuminuria, without long-term current use of insulin ([facility]) Currently taking Metformin Bid and Ozempic [...] microalbuminuria, without long-term current use of insulin ([facility]) - Primary Currently taking Metformin Bid [...] (Hb A1C) docked device (Completed) Other hyperlipidemia (CMS/[facility]) Crestor 20mg Denies myalgias Continue current [...] complication, without long-term current use of insulin ([facility]) documented in this encounterWashington County Memorial HospitalVcooufrsdb19-73-0785 Instructions* Patient Instructions* Sonam Drake NP - [...] carbohydrates, and simple sugars. documented in this encounterWashington County Memorial HospitalUydnrtvnfc04-88-7164 History of Present illness Narrative* Sonam Drake [...] microalbuminuria, without long-term current use of insulin ([facility]) Relevant Medications metFORMIN (Glucophage) 500 MG tablet Continuous Glucose Environmental Maintenance Worker (Dexcom G7 Environmental Maintenance Worker) device Continuous Glucose Sensor (Dexcom G7 Sensor) [...] aura and without status migrainosus, not intractable ([facility]) Relevant Medications divalproex (Depakote) 500 MG EC tablet Other hyperlipidemia ([facility]) Relevant Medications rosuvastatin (Crestor) 20 MG tablet Lumbar back pain Relevant Medications diclofenac (Voltaren) 75 MG EC tablet Other Visit Diagnoses Diabetic polyneuropathy associated with type 2 diabetes mellitus ([facility]) Relevant Medications pregabalin (Lyrica) 75 MG [...] - 01/30/2024 10:38 AM EST GIOVANNA:12/30/2023 NOV:03/26/2024 [facility] HospitalAfsfgxslgy03-21-3170 Miscellaneous Notes* Telephone Encounter - Jolly Castaneda MA - 01/30/2024 10:38 AM EST GIOVANNA:12/30/2023 NOV:03/26/2024 documented in this encounterWashington County Memorial HospitalZcdxketceu41-86-2049 Telephone encounter Note* Telephone Encounter - Jolly Castaneda MA - 01/14/2024 8:34 AM EST GIOVANNA:12/30/2023 NOV:03/26/2023 [facility] Istrrvrbgc89-21-0083 Miscellaneous Notes* Telephone Encounter - Jolly Castaneda MA - 01/14/2024 8:34 AM EST GIOVANNA:12/30/2023 NOV:03/26/2023 documented in this [facility]11-19-2024 History of Present illness Narrative* Sivan Banda DO - 12/31/2023 10:00 AM EST Images from the original note were not included. No chief complaint on file. Subjective SLEEP CONSULT REFERRAL: Snoring, concern for JANETT, needing sleep study - labs @ [facility]; referral received from Sonam Drake [...] to clinic: 2 months documented in this encounterWashington County Memorial HospitalGnmbdkvmqm77-15-2661 History of Present illness Narrative* Sonam Drake [...] RATIO 0.8 Resulting Agency [facility] DMII: Metformin Bid and Ozempic Most [...] JANETT. First appointment tomorrow. documented in this [facility]11-18-2024 Instructions* Patient Instructions* Sonam Drake NP - 12/30/2023 10:30 AM EST FASTING labs ordered. Nothing to eat or drink for 12 hours prior to blood draw. Water and black coffee ok. Call if you need anything! documented in this [facility]11-05-2024 Telephone encounter Note* Telephone Encounter - Jolly Castaneda MA - 12/17/2023 3:39 PM EST GIOVANNA:10/03/2023 NOV:12/30/2023 [facility] Umjddbfkem79-09-2331 Miscellaneous Notes* Telephone Encounter - Jolly Castaneda MA - 12/17/2023 3:39 PM EST GIOVANNA:10/03/2023 NOV:12/30/2023 documented in this encounterWashington County Memorial HospitalZxuyzyuuie41-19-6660 History of Present illness Narrative* Sonam Drake NP - 10/03/2023 10:57 AM EDTAssociated Problem(s): Snoring Screening for JANETT- Referral sent to [facility] [place] * Sonam Drake NP - 10/03/2023 10:35 [...] microalbuminuria, without long-term current use of insulin ([facility]) Metformin Bid and Ozempic Most recent [...] microalbuminuria, without long-term current use of insulin ([facility]) Metformin Bid and Ozempic Most recent [...] for JANETT- Referral sent to [facility] [place] Other Visit Diagnoses Type 2 diabetes mellitus without complication, without long-term current use of insulin (CMS/HCC) Relevant Medications semaglutide (Ozempic, 1 MG/DOSE,) 4 MG/3ML solution pen-injector Diabetic polyneuropathy associated with type 2 diabetes mellitus (CMS/HCC) Relevant Medications pregabalin (Lyrica) 75 MG capsule documented in this encounterWashington County Memorial HospitalMlqlitnawv27-13-8370 Instructions* Patient Instructions* Sonam Drake NP - [...] if you need anything! documented in this encounterWashington County Memorial HospitalLtmzazwhaz45-53-2644 Evaluation note* Encounter Date Diagnosis Assessment Notes [...] M25.531) Mar,Left hand pain (ICD-10 - M79.642) [facility] Other 12-13-2023 Evaluation note* Encounter Date Diagnosis [...] noted. Patient will f/u in 4 weeks. [facility] Other 12-08-2023 Evaluation note* Encounter Date Diagnosis [...] (ICD-10 - Z87.39) Jan,OtherGout material was printed [facility] Other 08-09-2023 Evaluation note* Encounter Date Diagnosis Assessment Notes Treatment Notes Treatment Clinical Notes Sep, Right wrist pain (ICD-10 - M25.5 31) [facility] Other 04-27-2023 NoteCONSULTATION CONSULTATION DATE: 06/07/2022 TO: [...] our patients to inform us about any llot-qth-obbynbq medications or herbal remedies/nutritional supplements/alternative remedies. 2. [...] primary care provider.[facility] CenterOppqrjzf14-78-9287 Evaluation note * Encounter Date Diagnosis Assessment [...] understanding and is agreeable to treatment plan. [facility] Other 01-26-2023 NoteCONSULTATION PROCEDURE DATE: 03/08/2022 PREOPERATIVE [...] in the clinic.[facility] CenterVogdbdnn28-87-3307 NotePROCEDURE: XR KNEE LT 4V or > [...] authenticated by: PATTIE SALTER Date: 2022-02-16 11:29[facility] CenterQbrpofeu06-60-3537 NoteCONSULTATION CONSULTATION DATE: 02/09/2022 HISTORY OF PRESENT [...] with this plan.[facility] CenterJswowuyq50-01-6130 NotePROCEDURE: XR WRIST RT MIN 3 V COMPARISON: None. HISTORY: Injury of right wrist FINDINGS: BONES:No acute fracture or dislocation. Corticated bone fragment identified along the first carpometacarpal joint [degenerative in nature SOFT TISSUES:Moderate diffuse soft tissue swelling EFFUSION:None visible. OTHER: Negative. IMPRESSION: Soft tissue swelling, no acute fracture Electronically authenticated by: RYAN WANG Date: 2021-11-16 18:59[facility]09-21-2022 NoteCONSULTATION CONSULTATION DATE: 11/01/2021 HISTORY OF [...] with this plan.[facility] CenterRdhzzhth00-07-2023 NoteCONSULTATION PROCEDURE DATE: 11/01/2021 PRE AND POSTOPERATIVE [...] in the clinic.[facility] CenterGjqxoaki98-06-4390 NoteCONSULTATION PROCEDURE DATE: 08/09/2021 PREOPERATIVE DIAGNOSIS: Bilateral [...] . 08/10/2021 13:37:00[facility] CenterQfnjfpqi34-19-5858 NoteCONSULTATION CONSULTATION DATE: 07/19/2021 HISTORY OF PRESENT [...] and Approved by: CRYS PIERCE . 07/20/2021 10:33:00[facility]05-25-2022 NotePROCEDURE: XR FOOT RT MIN 3 [...] Electronically authenticated by: PATTIE SALTER Date: 2021-07-05 11:11[facility] [facility] NoteCONSULTATION CONSULTATION DATE: 06/20/2021 CHIEF COMPLAINT: [...] like to proceed. CC: Jonathan Bean M.D. [facility] Signed and Approved by: DR RICARDO HOLM . 06/27/2021 10:40:00[facility] Routine cervical smear Screening for malignant neoplasm of the cervix documented in this encounter [facility] Work Phone: evaluation note* Diagnosis Diabetic polyneuropathy associated with type 2 diabetes mellitus (CMS/HCC)- Primary documented in this encounter [facility] HealthcareEvaluation noteNo assessment information availableSelect [facility] Work [facility]: Evaluation note* Diagnosis Encounter for [...] diabetes mellitus (CMS/HCC) documented in this encounter [facility] HealthcareEvaluation note* Diagnosis Encounter for [...] chronicity, unspecified site documented in this encounter [facility] HealthcareEvaluation note* Diagnosis Encounter for [...] complication, without long-term current use of insulin ([facility]) Diabetic polyneuropathy associated with type 2 diabetes mellitus ([facility]/HCC) Mixed urge and stress incontinence Mixed incontinence urge and stress (male)(female) Snoring Other dyspnea and respiratory abnormality Encounter for long-term (current) use of high-risk medication Encounter for long-term (current) use of other medications Type 2 diabetes mellitus with diabetic microalbuminuria, without long-term current use of insulin ([facility])- Primary Essential hypertension Unspecified essential hypertension Other hyperlipidemia (CMS/[facility]) Snoring Other dyspnea and respiratory abnormality Mixed urge and stress incontinence Mixed incontinence urge and stress (male)(female) JANETT (obstructive sleep apnea)- Primary Obstructive sleep apnea (adult) (pediatric) Hypersomnia Hypersomnia, unspecified Snoring Other dyspnea and respiratory abnormality Primary insomnia Persistent disorder of initiating or maintaining sleep Tobacco abuse Tobacco use disorder documented in this encounter [facility] HealthcareEvaluation note* Diagnosis Encounter for screening mammogram for breast cancer- Primary Encounter for screening for malignant neoplasm of colon Type 2 diabetes mellitus without complication, without long-term current use of insulin ([facility]) Upper respiratory tract infection, unspecified type URTI (acute upper respiratory infection) Acute upper respiratory infections of unspecified site Migraine with aura and without status migrainosus, not intractable (CMS/HCC)- Primary Type 2 diabetes mellitus without complication, without long-term current use of insulin ([facility]/HCC) Morbid (severe) obesity due to excess calories [...] with routine healing, subsequent encounter Other hyperlipidemia ([facility]) Hyperuricemia Other abnormal blood chemistry Osteoporosis, unspecified osteoporosis type, unspecified pathological fracture presence (CMS/HCC) Diabetic polyneuropathy associated with type 2 diabetes mellitus (CMS/HCC) Gastroesophageal reflux disease without esophagitis Esophageal reflux Migraine with aura and without status migrainosus, not intractable ([facility]) Hospital discharge follow-up Other follow-up examination Type 2 diabetes mellitus with diabetic microalbuminuria, without long-term current use of insulin ([facility]/HCC)- Primary Other hyperlipidemia (CMS/HCC) Essential hypertension Unspecified essential hypertension Bilateral lower extremity edema Lumbar back pain- Primary Lumbago Hospital discharge follow-up Other follow-up examination Essential hypertension- Primary Unspecified essential hypertension Type 2 diabetes mellitus with diabetic microalbuminuria, without long-term current use of insulin ([facility]/HCC) Morbid (severe) obesity due to excess calories (E66.01) Other hyperlipidemia (CMS/HCC) Lumbar back pain Lumbago Type 2 diabetes mellitus without complication, without long-term current use of insulin ([facility]) Diabetic polyneuropathy associated with type 2 diabetes mellitus ([facility]/HCC) Mixed urge and stress incontinence Mixed incontinence urge and stress (male)(female) Snoring Other dyspnea and respiratory abnormality Encounter for long-term (current) use of high-risk medication Encounter for long-term (current) use of other medications Type 2 diabetes mellitus with diabetic microalbuminuria, without long-term current use of insulin ([facility])- Primary Essential hypertension Unspecified essential hypertension Other hyperlipidemia ([facility]) Snoring Other dyspnea and respiratory abnormality Mixed urge and stress incontinence Mixed incontinence urge and stress (male)(female) documented in this encounter [facility]* Diagnosis Encounter for screening mammogram for breast cancer- Primary Encounter for screening for malignant neoplasm of colon Type 2 diabetes mellitus without complication, without long-term current use of insulin ([facility]) Upper respiratory tract infection, unspecified type [...] microalbuminuria, without long-term current use of insulin ([facility]) Morbid (severe) obesity due to excess calories (E66.01) Other hyperlipidemia (CMS/HCC) Lumbar back pain Lumbago Type 2 diabetes mellitus without complication, without long-term current use of insulin ([facility]) Diabetic polyneuropathy associated with type 2 diabetes mellitus (CMS/[facility]) Mixed urge and stress incontinence [...] complication, without long-term current use of insulin ([facility]) Upper respiratory tract infection, unspecified type URTI (acute upper respiratory infection) Acute upper respiratory infections of unspecified site Migraine with aura and without status migrainosus, not intractable ([facility])- Primary Type 2 diabetes mellitus without complication, without long-term current use of insulin ([facility]/HCC) Morbid (severe) obesity due to excess calories [...] with routine healing, subsequent encounter Other hyperlipidemia ([facility]) Hyperuricemia Other abnormal blood chemistry Osteoporosis, unspecified osteoporosis type, unspecified pathological fracture presence (CMS/[facility]) Diabetic polyneuropathy associated with type 2 diabetes mellitus ([facility]) Gastroesophageal reflux disease without esophagitis Esophageal [...] long-term current use of insulin (CMS/[facility])- Primary Essential hypertension Unspecified essential hypertension Other hyperlipidemia (CMS/HCC) Snoring Other dyspnea and respiratory abnormality Mixed urge and stress incontinence Mixed incontinence urge and stress (male)(female) Lumbar back pain- Primary Lumbago Type 2 diabetes mellitus with diabetic microalbuminuria, without long-term current use of insulin ([facility]/HCC) documented in this encounter [facility] HealthcareEvaluation note* Diagnosis Encounter for [...] microalbuminuria, without long-term current use of insulin ([facility]/HCC)- Primary Essential hypertension Unspecified essential hypertension Other [...] Other hyperlipidemia (CMS/HCC) documented in this encounter [facility] HealthcareEvaluation note* Diagnosis Encounter for [...] healing, subsequent encounter Other hyperlipidemia (CMS/[facility]) Hyperuricemia Other abnormal blood chemistry Osteoporosis, unspecified osteoporosis type, unspecified pathological fracture presence (CMS/[facility]) Diabetic polyneuropathy associated with type 2 diabetes mellitus (CMS/HCC) Gastroesophageal reflux disease without esophagitis Esophageal reflux Migraine with aura and without status migrainosus, not intractable (CMS/[facility]) Hospital discharge follow-up Other follow-up [...] complication, without long-term current use of insulin ([facility]) Diabetic polyneuropathy associated with type 2 diabetes mellitus ([facility]/HCC) Mixed urge and stress incontinence Mixed incontinence [...] fracture presence (CMS/HCC) documented in this encounter [facility] HealthcareEvaluation note* Diagnosis Encounter for screening mammogram [...] esophagitis Esophageal reflux documented in this encounter [facility] HealthcareEvaluation note* Diagnosis Encounter for [...] with routine healing, subsequent encounter Other hyperlipidemia ([facility]) Hyperuricemia Other abnormal blood chemistry Osteoporosis, unspecified osteoporosis type, unspecified pathological fracture presence ([facility]) Diabetic polyneuropathy associated with type 2 diabetes mellitus ([facility]) Gastroesophageal reflux disease without esophagitis Esophageal reflux Migraine with aura and without status migrainosus, not intractable ([facility]) Hospital discharge follow-up Other follow-up examination Type 2 diabetes mellitus with diabetic microalbuminuria, without long-term current use of insulin ([facility])- Primary Other hyperlipidemia ([facility]) Essential hypertension Unspecified essential hypertension Bilateral lower extremity edema Lumbar back pain- Primary Lumbago Hospital discharge follow-up Other follow-up examination Essential hypertension- Primary Unspecified essential hypertension Type 2 diabetes mellitus with diabetic microalbuminuria, without long-term current use of insulin ([facility]) Morbid (severe) obesity due to excess calories (E66.01) Other hyperlipidemia ([facility]) Lumbar back pain Lumbago Type 2 diabetes mellitus without complication, without long-term current use of insulin ([facility]) Diabetic polyneuropathy associated with type 2 diabetes mellitus ([facility]) Mixed urge and stress incontinence Mixed incontinence urge and stress (male)(female) Snoring Other dyspnea and respiratory abnormality Encounter for long-term (current) use of high-risk medication Encounter for long-term (current) use of other medications Type 2 diabetes mellitus with diabetic microalbuminuria, without long-term current use of insulin ([facility])- Primary Essential hypertension Unspecified essential hypertension Other hyperlipidemia ([facility]) Snoring Other dyspnea and respiratory abnormality Mixed urge and stress incontinence Mixed incontinence urge and stress (male)(female) Upper respiratory infection with cough and congestion- Primary Lumbar back pain Lumbago Migraine with aura and without status migrainosus, not intractable ([facility]) Type 2 diabetes mellitus with diabetic microalbuminuria, without long-term current use of insulin ([facility]) Diabetic polyneuropathy associated with type 2 diabetes mellitus ([facility]) Other hyperlipidemia ([facility]) Type 2 diabetes mellitus with diabetic microalbuminuria, without long-term current use of insulin ([facility])- Primary Essential hypertension Unspecified essential hypertension Other hyperlipidemia (CMS/HCC) JANETT (obstructive sleep apnea) Obstructive sleep apnea (adult) (pediatric) Type 2 diabetes mellitus without complication, without long-term current use of insulin (CMS/HCC) documented in this encounter [facility] HealthcareEvaluation note* Diagnosis Encounter for [...] of insulin (CMS/HCC) documented in this encounter [facility] HealthcareEvaluation note* Diagnosis Encounter for [...] with routine healing, subsequent encounter Other hyperlipidemia ([facility]) Hyperuricemia Other abnormal blood chemistry Osteoporosis, unspecified osteoporosis type, unspecified pathological fracture presence ([facility]) Diabetic polyneuropathy associated with type 2 diabetes mellitus ([facility]) Gastroesophageal reflux disease without esophagitis Esophageal reflux Migraine with aura and without status migrainosus, not intractable ([facility]) Hospital discharge follow-up Other follow-up examination Type 2 diabetes mellitus with diabetic microalbuminuria, without long-term current use of insulin ([facility])- Primary Other hyperlipidemia ([facility]) Essential hypertension Unspecified essential hypertension Bilateral lower extremity edema Lumbar back pain- Primary Lumbago Hospital discharge follow-up Other follow-up examination Essential hypertension- Primary Unspecified essential hypertension Type 2 diabetes mellitus with diabetic microalbuminuria, without long-term current use of insulin ([facility]) Morbid (severe) obesity due to excess calories (E66.01) Other hyperlipidemia ([facility]) Lumbar back pain Lumbago Type 2 diabetes mellitus without complication, without long-term current use of insulin ([facility]) Diabetic polyneuropathy associated with type 2 diabetes mellitus ([facility]) Mixed urge and stress incontinence Mixed incontinence urge and stress (male)(female) Snoring Other dyspnea and respiratory abnormality Encounter for long-term (current) use of high-risk medication Encounter for long-term (current) use of other medications Type 2 diabetes mellitus with diabetic microalbuminuria, without long-term current use of insulin ([facility])- Primary Essential hypertension Unspecified essential hypertension Other hyperlipidemia ([facility]) Snoring Other dyspnea and respiratory abnormality Mixed urge and stress incontinence Mixed incontinence urge and stress (male)(female) Upper respiratory infection with cough and congestion- Primary Lumbar back pain Lumbago Migraine with aura and without status migrainosus, not intractable ([facility]) Type 2 diabetes mellitus with diabetic microalbuminuria, without long-term current use of insulin ([facility]) Diabetic polyneuropathy associated with type 2 diabetes mellitus ([facility]) Other hyperlipidemia ([facility]) Type 2 diabetes mellitus with diabetic microalbuminuria, without long-term current use of insulin ([facility])- Primary Essential hypertension Unspecified essential hypertension Other hyperlipidemia (CMS/HCC) JANETT (obstructive sleep apnea) Obstructive sleep apnea (adult) (pediatric) Type 2 diabetes mellitus without complication, without long-term current use of insulin (CMS/HCC) Type 2 diabetes mellitus with diabetic microalbuminuria, without long-term current use of insulin (CMS/HCC) documented in this encounter [facility] HealthcareEvaluation note* Diagnosis Encounter for [...] complication, without long-term current use of insulin ([facility]/HCC) Bilateral lower extremity edema- Primary documented in this encounter [facility] HealthcareEvaluation note* Diagnosis Encounter for [...] unspecified osteoporosis type, unspecified pathological fracture presence ([facility]/HCC) Diabetic polyneuropathy associated with type 2 diabetes mellitus ([facility]) Gastroesophageal reflux disease without esophagitis Esophageal reflux Migraine with aura and without status migrainosus, not intractable ([facility]) Hospital discharge follow-up Other follow-up examination Type 2 diabetes mellitus with diabetic microalbuminuria, without long-term current use of insulin ([facility])- Primary Other hyperlipidemia Essential hypertension Unspecified essential hypertension Bilateral lower extremity edema Lumbar back pain- Primary Lumbago Hospital discharge follow-up Other follow-up examination Essential hypertension- Primary Unspecified essential hypertension Type 2 diabetes mellitus with diabetic microalbuminuria, without long-term current use of insulin ([facility]) Morbid (severe) obesity due to excess calories (E66.01) Other hyperlipidemia Lumbar back pain Lumbago Type 2 diabetes mellitus without complication, without long-term current use of insulin Diabetic polyneuropathy associated with type 2 diabetes mellitus ([facility]) Mixed urge and stress incontinence Mixed incontinence urge and stress (male)(female) Snoring Other dyspnea and respiratory abnormality Encounter for long-term (current) use of high-risk medication Encounter for long-term (current) use of other medications Type 2 diabetes mellitus with diabetic microalbuminuria, without long-term current use of insulin ([facility])- Primary Essential hypertension Unspecified essential hypertension Other hyperlipidemia Snoring Other dyspnea and respiratory abnormality Mixed urge and stress incontinence Mixed incontinence urge and stress (male)(female) Type 2 diabetes mellitus with diabetic microalbuminuria, without long-term current use of insulin ([facility])- Primary Essential hypertension Unspecified essential hypertension Other hyperlipidemia JANETT (obstructive sleep apnea) Obstructive sleep apnea (adult) (pediatric) Type 2 diabetes mellitus without complication, without long-term current use of insulin Type 2 diabetes mellitus with diabetic microalbuminuria, without long-term current use of insulin ([facility])- Primary Morbid (severe) obesity due to excess calories ([facility]) Other hyperlipidemia Body mass index (BMI) 39.0-39.9, adult JANETT (obstructive sleep apnea) Obstructive sleep apnea (adult) (pediatric) Bilateral lower extremity edema Migraine with aura and without status migrainosus, not intractable ([facility]) Cigarette nicotine dependence without complication Hypercalcemia Essential hypertension Unspecified essential hypertension Elevated blood uric acid level Lumbar back pain Lumbago Gastroesophageal reflux disease without esophagitis Esophageal reflux Chronic gout of multiple sites, unspecified cause Acute pain of right knee Diabetic polyneuropathy associated with type 2 diabetes mellitus (CMS/HCC) documented in this encounter [facility] HealthcareEvaluation note* Diagnosis Encounter for [...] (CMS/HCC) Hypercalcemia- Primary documented in this encounter [facility] HealthcareEvaluation note* Diagnosis Encounter for [...] unspecified osteoporosis type, unspecified pathological fracture presence ([facility]) Diabetic polyneuropathy associated with type 2 diabetes mellitus ([facility]) Gastroesophageal reflux disease without esophagitis Esophageal reflux Migraine with aura and without status migrainosus, not intractable ([facility]) Hospital discharge follow-up Other follow-up examination Type 2 diabetes mellitus with diabetic microalbuminuria, without long-term current use of insulin ([facility])- Primary Other hyperlipidemia Essential hypertension Unspecified essential hypertension Bilateral lower extremity edema Lumbar back pain- Primary Lumbago Hospital discharge follow-up Other follow-up examination Essential hypertension- Primary Unspecified essential hypertension Type 2 diabetes mellitus with diabetic microalbuminuria, without long-term current use of insulin ([facility]) Morbid (severe) obesity due to excess calories (E66.01) Other hyperlipidemia Lumbar back pain Lumbago Type 2 diabetes mellitus without complication, without long-term current use of insulin Diabetic polyneuropathy associated with type 2 diabetes mellitus ([facility]) Mixed urge and stress incontinence Mixed incontinence urge and stress (male)(female) Snoring Other dyspnea and respiratory abnormality Encounter for long-term (current) use of high-risk medication Encounter for long-term (current) use of other medications Type 2 diabetes mellitus with diabetic microalbuminuria, without long-term current use of insulin ([facility])- Primary Essential hypertension Unspecified essential hypertension Other hyperlipidemia Snoring Other dyspnea and respiratory abnormality Mixed urge and stress incontinence Mixed incontinence urge and stress (male)(female) Type 2 diabetes mellitus with diabetic microalbuminuria, without long-term current use of insulin ([facility])- Primary Essential hypertension Unspecified essential [...] microalbuminuria, without long-term current use of insulin ([facility])- Primary Morbid (severe) obesity due to [...] diabetes mellitus (CMS/HCC) documented in this encounter [facility] HealthcareEvaluation note* Diagnosis Encounter for [...] parathyroid hormone (PTH) documented in this encounter [facility] HealthcareEvaluation note* Diagnosis Encounter for [...] unspecified osteoporosis type, unspecified pathological fracture presence ([facility]) Diabetic polyneuropathy associated with type 2 diabetes mellitus ([facility]) Gastroesophageal reflux disease without esophagitis Esophageal reflux Migraine with aura and without status migrainosus, not intractable ([facility]) Hospital discharge follow-up Other follow-up examination Type 2 diabetes mellitus with diabetic microalbuminuria, without long-term current use of insulin ([facility])- Primary Other hyperlipidemia Essential hypertension Unspecified essential hypertension Bilateral lower extremity edema Lumbar back pain- Primary Lumbago Hospital discharge follow-up Other follow-up examination Essential hypertension- Primary Unspecified essential hypertension Type 2 diabetes mellitus with diabetic microalbuminuria, without long-term current use of insulin ([facility]) Morbid (severe) obesity due to excess calories (E66.01) Other hyperlipidemia Lumbar back pain Lumbago Type 2 diabetes mellitus without complication, without long-term current use of insulin Diabetic polyneuropathy associated with type 2 diabetes mellitus ([facility]) Mixed urge and stress incontinence Mixed incontinence urge and stress (male)(female) Snoring Other dyspnea and respiratory abnormality Encounter for long-term (current) use of high-risk medication Encounter for long-term (current) use of other medications Type 2 diabetes mellitus with diabetic microalbuminuria, without long-term current use of insulin ([facility])- Primary Essential hypertension Unspecified essential hypertension Other hyperlipidemia Snoring Other dyspnea and respiratory abnormality Mixed urge and stress incontinence Mixed incontinence urge and stress (male)(female) Type 2 diabetes mellitus with diabetic microalbuminuria, without long-term current use of insulin ([facility])- Primary Essential hypertension Unspecified essential [...] other sinus- Primary documented in this encounter [facility] HealthcareEvaluation note* Diagnosis Encounter for [...] diabetes mellitus (CMS/HCC) documented in this encounter [facility] HealthcareEvaluation note* Diagnosis Encounter for [...] unspecified osteoporosis type, unspecified pathological fracture presence ([facility]) Diabetic polyneuropathy associated with type 2 diabetes mellitus ([facility]) Gastroesophageal reflux disease without esophagitis Esophageal reflux Migraine with aura and without status migrainosus, not intractable ([facility]) Hospital discharge follow-up Other follow-up examination Type 2 diabetes mellitus with diabetic microalbuminuria, without long-term current use of insulin ([facility])- Primary Other hyperlipidemia Essential hypertension Unspecified essential hypertension Bilateral lower extremity edema Lumbar back pain- Primary Lumbago Hospital discharge follow-up Other follow-up examination Essential hypertension- Primary Unspecified essential hypertension Type 2 diabetes mellitus with diabetic microalbuminuria, without long-term current use of insulin ([facility]) Morbid (severe) obesity due to excess calories (E66.01) Other hyperlipidemia Lumbar back pain Lumbago Type 2 diabetes mellitus without complication, without long-term current use of insulin Diabetic polyneuropathy associated with type 2 diabetes mellitus ([facility]) Mixed urge and stress incontinence Mixed incontinence urge and stress (male)(female) Snoring Other dyspnea and respiratory abnormality Encounter for long-term (current) use of high-risk medication Encounter for long-term (current) use of other medications Type 2 diabetes mellitus with diabetic microalbuminuria, without long-term current use of insulin ([facility])- Primary Essential hypertension Unspecified essential hypertension Other hyperlipidemia Snoring Other dyspnea and respiratory abnormality Mixed urge and stress incontinence Mixed incontinence urge and stress (male)(female) Type 2 diabetes mellitus with diabetic microalbuminuria, without long-term current use of insulin ([facility])- Primary Essential hypertension Unspecified essential [...] of insulin (CMS/HCC) documented in this encounter [facility] HealthcareEvaluation note* Diagnosis Encounter for [...] hormone (PTH)- Primary documented in this encounter [facility] HealthcareEvaluation note* Diagnosis Encounter for screening mammogram [...] with type 2 diabetes mellitus ([facility]) Gastroesophageal reflux disease without esophagitis Esophageal reflux Migraine with aura and without status migrainosus, not intractable Hospital discharge follow-up Other follow-up examination Type 2 diabetes mellitus with diabetic microalbuminuria, without long-term current use of insulin ([facility])- Primary Other hyperlipidemia Essential hypertension Unspecified essential hypertension Bilateral lower extremity edema Lumbar back pain- Primary Lumbago Hospital discharge follow-up Other follow-up examination Essential hypertension- Primary Unspecified essential hypertension Type 2 diabetes mellitus with diabetic microalbuminuria, without long-term current use of insulin ([facility]) Morbid (severe) obesity due to excess calories (E66.01) Other hyperlipidemia Lumbar back pain Lumbago Type 2 diabetes mellitus without complication, without long-term current use of insulin ([facility]) Diabetic polyneuropathy associated with type 2 diabetes mellitus ([facility]) Mixed urge and stress incontinence Mixed incontinence urge and stress (male)(female) Snoring Other dyspnea and respiratory abnormality Encounter for long-term (current) use of high-risk medication Encounter for long-term (current) use of other medications Type 2 diabetes mellitus with diabetic microalbuminuria, without long-term current use of insulin ([facility])- Primary Essential hypertension Unspecified essential [...] Morbid (severe) obesity due to excess calories ([facility]) Other hyperlipidemia Body mass index (BMI) 39.0-39.9, [...] back pain Lumbago documented in this encounter [facility] HealthcareEvaluation note* Diagnosis Encounter for [...] of insulin ([facility]) Type 2 diabetes mellitus with diabetic microalbuminuria, without long-term current use of insulin (HCC)- Primary Morbid (severe) obesity due to excess calories ([facility]) Other hyperlipidemia Body mass index (BMI) [...] Vitamin D deficiency documented in this encounter [facility] HealthcareEvaluation note* Diagnosis Encounter for screening mammogram for breast cancer- Primary Encounter for screening for malignant neoplasm of colon Type 2 diabetes mellitus without complication, without long-term current use of insulin ([facility]) Upper respiratory tract infection, unspecified type [...] use of insulin ([facility])- Primary Other hyperlipidemia Essential hypertension Unspecified essential hypertension Bilateral lower extremity edema Lumbar back pain- Primary Lumbago Hospital discharge follow-up Other follow-up examination Essential hypertension- Primary Unspecified essential hypertension Type 2 diabetes mellitus with diabetic microalbuminuria, without long-term current use of insulin ([facility]) Morbid (severe) obesity due to excess calories (E66.01) Other hyperlipidemia Lumbar back pain Lumbago Type 2 diabetes mellitus without complication, without long-term current use of insulin ([facility]) Diabetic polyneuropathy associated with type 2 diabetes mellitus (HCC) Mixed urge and stress incontinence Mixed incontinence urge and stress (male)(female) Snoring Other dyspnea and respiratory abnormality Encounter for long-term (current) use of high-risk medication Encounter for long-term (current) use of other medications Type 2 diabetes mellitus with diabetic microalbuminuria, without long-term current use of insulin ([facility])- Primary Essential hypertension Unspecified essential hypertension Other hyperlipidemia Snoring Other dyspnea and respiratory abnormality Mixed urge and stress incontinence Mixed incontinence urge and stress (male)(female) Type 2 diabetes mellitus with diabetic microalbuminuria, without long-term current use of insulin ([facility])- Primary Essential hypertension Unspecified essential hypertension Other hyperlipidemia JANETT (obstructive sleep apnea) Obstructive sleep apnea (adult) (pediatric) Type 2 diabetes mellitus without complication, without long-term current use of insulin (HCC) Type 2 diabetes mellitus with diabetic microalbuminuria, without long-term current use of insulin (HCC)- Primary Morbid (severe) obesity due to excess calories ([facility]) Other hyperlipidemia Body mass index (BMI) 39.0-39.9, [...] back pain Lumbago documented in this encounter [facility] HealthcareEvaluation note* Diagnosis Encounter for screening mammogram for breast cancer- Primary Encounter for screening for malignant neoplasm of colon Type 2 diabetes mellitus without complication, without long-term current use of insulin ([facility]) Upper respiratory tract infection, unspecified type URTI (acute upper respiratory infection) Acute upper respiratory infections of unspecified site Migraine with aura and without status migrainosus, not intractable- Primary Type 2 diabetes mellitus without complication, without long-term current use of insulin ([facility]) Morbid (severe) obesity due to [...] of insulin ([facility]) Morbid (severe) obesity due to [...] use of insulin ([facility])- Primary Essential hypertension Unspecified essential hypertension Other hyperlipidemia Snoring Other dyspnea and respiratory abnormality Mixed urge and stress incontinence Mixed incontinence urge and stress (male)(female) Type 2 diabetes mellitus with diabetic microalbuminuria, without long-term current use of insulin ([facility])- Primary Essential hypertension Unspecified essential hypertension Other hyperlipidemia JANETT (obstructive sleep apnea) Obstructive sleep apnea (adult) (pediatric) Type 2 diabetes mellitus without complication, without long-term current use of insulin ([facility]) Type 2 diabetes mellitus with diabetic microalbuminuria, without long-term current use of insulin ([facility])- Primary Morbid (severe) obesity due to excess calories ([facility]) Other hyperlipidemia Body mass index (BMI) [...] unspecified cause- Primary documented in this encounter [facility] HealthcareEvaluation note* Diagnosis Encounter for screening mammogram for breast cancer- Primary Encounter for screening for malignant neoplasm of colon Type 2 diabetes mellitus without complication, without long-term current use of insulin ([facility]) Upper respiratory tract infection, unspecified type [...] use of insulin ([facility])- Primary Essential hypertension Unspecified essential hypertension Other hyperlipidemia JANETT (obstructive sleep apnea) Obstructive sleep apnea (adult) (pediatric) Type 2 diabetes mellitus without complication, without long-term current use of insulin (HCC) Type 2 diabetes mellitus with diabetic microalbuminuria, without long-term current use of insulin (HCC)- Primary Morbid (severe) obesity due to excess calories ([facility]) Other hyperlipidemia Body mass index (BMI) 39.0-39.9, [...] of insulin ([facility]) documented in this encounter [facility] HealthcareEvaluation note* Diagnosis Encounter for screening mammogram for breast cancer- Primary Encounter for screening for malignant neoplasm of colon Type 2 diabetes mellitus without complication, without long-term current use of insulin ([facility]) Upper respiratory tract infection, unspecified type [...] of insulin ([facility]) Morbid (severe) obesity due to excess calories (E66.01) Other hyperlipidemia Lumbar back pain Lumbago Type 2 diabetes mellitus without complication, without long-term current use of insulin ([facility]) Diabetic polyneuropathy associated with type 2 diabetes mellitus ([facility]) Mixed urge and stress incontinence Mixed incontinence urge and stress (male)(female) Snoring Other dyspnea and respiratory abnormality Encounter for long-term (current) use of high-risk medication Encounter for long-term (current) use of other medications Type 2 diabetes mellitus with diabetic microalbuminuria, without long-term current use of insulin ([facility])- Primary Essential hypertension Unspecified essential hypertension Other hyperlipidemia Snoring Other dyspnea and respiratory abnormality Mixed urge and stress incontinence Mixed incontinence urge and stress (male)(female) Type 2 diabetes mellitus with diabetic microalbuminuria, without long-term current use of insulin ([facility])- Primary Essential hypertension Unspecified essential hypertension Other hyperlipidemia JANETT (obstructive sleep apnea) Obstructive sleep apnea (adult) (pediatric) Type 2 diabetes mellitus without complication, without long-term current use of insulin ([facility]) Type 2 diabetes mellitus with diabetic microalbuminuria, without long-term current use of insulin ([facility])- Primary Morbid (severe) obesity due to excess calories ([facility]) Other hyperlipidemia Body mass index (BMI) [...] use of insulin ([facility])- Primary Essential hypertension Unspecified essential hypertension Morbid (severe) obesity due to excess calories (E66.01) Cigarette nicotine dependence without complication Chronic gout of multiple sites, unspecified cause Gastroesophageal reflux disease without esophagitis Esophageal reflux Bilateral lower extremity edema documented in this encounter [facility] HealthcareEvaluation note* Diagnosis Encounter for [...] use of insulin ([facility])- Primary Essential hypertension Unspecified essential hypertension Other hyperlipidemia Snoring Other dyspnea and respiratory abnormality Mixed urge and stress incontinence Mixed incontinence urge and stress (male)(female) Type 2 diabetes mellitus with diabetic microalbuminuria, without long-term current use of insulin ([facility])- Primary Essential hypertension Unspecified essential hypertension Other hyperlipidemia JANETT (obstructive sleep apnea) Obstructive sleep apnea (adult) (pediatric) Type 2 diabetes mellitus without complication, without long-term current use of insulin ([facility]) Type 2 diabetes mellitus with diabetic microalbuminuria, without long-term current use of insulin ([facility])- Primary Morbid (severe) obesity due to excess calories ([facility]) Other hyperlipidemia Body mass index (BMI) [...] use of insulin ([facility])- Primary Essential hypertension Unspecified essential [...] of insulin ([facility]) Osteoporosis, unspecified osteoporosis type, unspecified pathological fracture presence documented in this encounter [facility] HealthcareEvaluation note* Diagnosis Encounter for screening mammogram for breast cancer- Primary Encounter for screening for malignant neoplasm of colon Type 2 diabetes mellitus without complication, without long-term current use of insulin ([facility]) Upper respiratory tract infection, unspecified type URTI (acute upper respiratory infection) Acute upper respiratory infections of unspecified site Migraine with aura and without status migrainosus, not intractable- Primary Type 2 diabetes mellitus without complication, without long-term current use of insulin ([facility]) Morbid (severe) obesity due to excess calories (E66.01) Body mass index [BMI] 40.0-44.9, adult (Z68.41) Essential hypertension Unspecified essential hypertension Essential hypertension- Primary Unspecified essential hypertension Type 2 diabetes mellitus without complication, without long-term current use of insulin ([facility]) Back spasm Other symptoms referable to [...] with type 2 diabetes mellitus ([facility]) Gastroesophageal reflux disease without esophagitis Esophageal reflux Migraine with aura and without status migrainosus, not intractable Hospital discharge follow-up Other follow-up examination Type 2 diabetes mellitus with diabetic microalbuminuria, without long-term current use of insulin ([facility])- Primary Other hyperlipidemia Essential hypertension Unspecified essential hypertension Bilateral lower extremity edema Lumbar back pain- Primary Lumbago Hospital discharge follow-up Other follow-up examination Essential hypertension- Primary Unspecified essential hypertension Type 2 diabetes mellitus with diabetic microalbuminuria, without long-term current use of insulin ([facility]) Morbid (severe) obesity due to excess calories (E66.01) Other hyperlipidemia Lumbar back pain Lumbago Type 2 diabetes mellitus without complication, without long-term current use of insulin ([facility]) Diabetic polyneuropathy associated with type 2 diabetes mellitus ([facility]) Mixed urge and stress incontinence Mixed incontinence urge and stress (male)(female) Snoring Other dyspnea and respiratory abnormality Encounter for long-term (current) use of high-risk medication Encounter for long-term (current) use of other medications Type 2 diabetes mellitus with diabetic microalbuminuria, without long-term current use of insulin ([facility])- Primary Essential hypertension Unspecified essential hypertension Other hyperlipidemia Snoring Other dyspnea and respiratory abnormality Mixed urge and stress incontinence Mixed incontinence urge and stress (male)(female) Type 2 diabetes mellitus with diabetic microalbuminuria, without long-term current use of insulin ([facility])- Primary Essential hypertension Unspecified essential hypertension Other hyperlipidemia JANETT (obstructive sleep apnea) Obstructive sleep apnea (adult) (pediatric) Type 2 diabetes mellitus without complication, without long-term current use of insulin ([facility]) Type 2 diabetes mellitus with diabetic microalbuminuria, without long-term current use of insulin ([facility])- Primary Morbid (severe) obesity due to excess calories ([facility]) Other hyperlipidemia Body mass index (BMI) [...] diabetes mellitus (HCC) documented in this encounter [facility] HealthcareEvaluation note* Diagnosis Encounter for [...] of insulin ([facility]) Morbid (severe) obesity due to [...] use of insulin ([facility])- Primary Essential hypertension Unspecified essential hypertension Other hyperlipidemia Snoring Other dyspnea and respiratory abnormality Mixed urge and stress incontinence Mixed incontinence urge and stress (male)(female) Type 2 diabetes mellitus with diabetic microalbuminuria, without long-term current use of insulin ([facility])- Primary Essential hypertension Unspecified essential hypertension Other hyperlipidemia JANETT (obstructive sleep apnea) Obstructive sleep apnea (adult) (pediatric) Type 2 diabetes mellitus without complication, without long-term current use of insulin ([facility]) Type 2 diabetes mellitus with diabetic microalbuminuria, without long-term current use of insulin ([facility])- Primary Morbid (severe) obesity due to excess calories ([facility]) Other hyperlipidemia Body mass index (BMI) [...] use of insulin ([facility])- Primary Essential hypertension Unspecified essential hypertension Morbid (severe) obesity due to excess calories (E66.01) Cigarette nicotine dependence without complication Chronic gout of multiple sites, unspecified cause Gastroesophageal reflux disease without esophagitis Esophageal reflux Bilateral lower extremity edema Lumbar back pain Lumbago documented in this encounter [facility] HealthcareEvaluation note* Diagnosis Encounter for [...] use of insulin ([facility])- Primary Essential hypertension Unspecified essential [...] Morbid (severe) obesity due to excess calories ([facility]) Other hyperlipidemia Body mass index (BMI) [...] use of insulin ([facility])- Primary Essential hypertension Unspecified essential hypertension Morbid (severe) obesity due to excess calories (E66.01) Cigarette nicotine dependence without complication Chronic gout of multiple sites, unspecified cause Gastroesophageal reflux disease without esophagitis Esophageal reflux Bilateral lower extremity edema Other hyperlipidemia documented in this encounter [facility] HealthcareEvaluation note* Diagnosis Encounter for screening mammogram for breast cancer- Primary Encounter for screening for malignant neoplasm of colon Type 2 diabetes mellitus without complication, without long-term current use of insulin [facility] [facility]) Upper respiratory tract infection, unspecified type URTI (acute upper respiratory infection) Acute upper respiratory infections of unspecified site Migraine with aura and without status migrainosus, not intractable- Primary Type 2 diabetes mellitus without complication, without long-term current use of insulin ([facility]) Morbid (severe) obesity due to excess calories (E66.01) Body mass index [BMI] 40.0-44.9, adult (Z68.41) Essential hypertension Unspecified essential hypertension Essential hypertension- Primary Unspecified essential hypertension Type 2 diabetes mellitus without complication, without long-term current use of insulin ([facility]) Back spasm Other symptoms referable to [...] use of insulin ([facility])- Primary Other hyperlipidemia Essential hypertension Unspecified essential hypertension Bilateral lower extremity edema Lumbar back pain- Primary Lumbago Hospital discharge follow-up Other follow-up examination Essential hypertension- Primary Unspecified essential hypertension Type 2 diabetes mellitus with diabetic microalbuminuria, without long-term current use of insulin ([facility]) Morbid (severe) obesity due to excess calories (E66.01) Other hyperlipidemia Lumbar back pain Lumbago Type 2 diabetes mellitus without complication, without long-term current use of insulin ([facility]) Diabetic polyneuropathy associated with type 2 diabetes mellitus ([facility]) Mixed urge and stress incontinence Mixed incontinence urge and stress (male)(female) Snoring Other dyspnea and respiratory abnormality Encounter for long-term (current) use of high-risk medication Encounter for long-term (current) use of other medications Type 2 diabetes mellitus with diabetic microalbuminuria, without long-term current use of insulin ([facility])- Primary Essential hypertension Unspecified essential hypertension Other hyperlipidemia Snoring Other dyspnea and respiratory abnormality Mixed urge and stress incontinence Mixed incontinence urge and stress (male)(female) Type 2 diabetes mellitus with diabetic microalbuminuria, without long-term current use of insulin ([facility])- Primary Essential hypertension Unspecified essential hypertension Other hyperlipidemia JANETT (obstructive sleep apnea) Obstructive sleep apnea (adult) (pediatric) Type 2 diabetes mellitus without complication, without long-term current use of insulin ([facility]) Type 2 diabetes mellitus with diabetic microalbuminuria, without long-term current use of insulin ([facility])- Primary Morbid (severe) obesity due to excess calories ([facility]) Other hyperlipidemia Body mass index (BMI) [...] surgerySurgical History hysterectomySurgical Historytubal ligationHospitalization Historysee above [employer] Other Reason for referral (narrative)* Consultation (Routine) - Pending ReviewSpecialtyDiagnoses / ProceduresReferred By Contact Referred To ContactNeurology Diagnoses Snoring Procedures NE OFFICE/OUTPATIENT NEW HIGH MDM 60 MINUTES Sonam Drake NP [address] [place] [address] Sivan Banda DO [address] [place] [address] Referral IDStatusReasonStart DateExpiration DateVisits RequestedVisits [id number] Review Specialty Services Required / Scheduling Instructions Please include OV note from today * Consultation (Routine) - Pending ReviewSpecialtyDiagnoses / ProceduresReferred By ContactReferred To ContactUrology Diagnoses Mixed urge and stress incontinence Procedures NE OFFICE/OUTPATIENT NEW HIGH MDM 60 MINUTES Sonam Drake NP [address] [address] Skinny Villafuerte MD [address] [place] [address] Referral IDStatusReasonStart DateExpiration DateVisits RequestedVisits [id number] Review Specialty Services Required / CRIS Simms for referral (narrative)No reason for referral information availableSelect Medical Specialty [facility] Work Phone: Summary Purpose Family History Relationship [...] DateEnd Date Sr Jonathan Bean, [address] [place] [address] PCP - GeneralFamily Medicine08/30/21Team MemberRelationshipSpecialtyStart DateEnd Date Shaikh Connelly MD PCP - GeneralInternal Uzglpasi52/1/23 Team Status: Active Member Role Status Dates NON STAFF Primary Care Provider Active Team Status: Inactive Member Role Status Dates Ana Luisa Curtis MD Attending Provider Active Start: April 30, 2023 End: April 30, 2023NON STAFFPrimary Care ProviderActiveStart: April 30, 2023 End: April 30, 2023Team MemberRelationshipSpecialtyStart DateEnd Date Jose Chandler MD [address] [place] [address] PCP - GeneralFami Qjdesonm83/31/24 Sonam Drake NP [address] [place] [address] Nurse Pract[facility]er[facility]09/24/23Team MemberRelationshipSpecialtyStart DateEnd Date Jose Chandler MD [address] [place] [address] PCP - GeneralNorthridge Medical Center12/12/23 Sonam Drake, RONALDO [address] [place] [address] Nurse PractitionerNorth[facility] Medical Center09/24/23Team MemberRelationshipSpecialtyStart DateEnd Date Jose Chandler MD [address] [place] [address] PCP - Generalmi Hfstillj57/31/24 Sonam Drake, RONALDO [address] [place] [address] Nurse PractitionerNorth[facility] Center09/24/23Team MemberRelationshipSpecialtyStart DateEnd Date Jose Chandler MD [address] [place] [address] [facility] - [facility] Iampglym83/31/24 Sonam Drake NP [address] [place] [address] Nurse PractitionerNorth[facility] Center09/24/23Team MemberRelationshipSpecialtyStart DateEnd Date Jose Chandler MD [address] [place] [address] PCP - [facility]12/12/23 Sonam Drake NP [address] [place] [address] Nurse PractitionerNorth[facility] Center09/24/23Team MemberRelationshipSpecialtyStart DateEnd Date Jose Chandler MD [address] [place] [address] PCP - [facility]12/12/23 Sonam Drake NP [address] [place] [address] Nurse PractitionerNorth[facility]09/24/23Team MemberRelationshipSpecialtyStart DateEnd Date Jose Chandler MD [address] [place] [address] PCP - [facility]09/24/23 Sonam Drake NP [address] [place] [address] Nurse PractitionerNorth[facility]09/24/23Team MemberRelationshipSpecialtyStart DateEnd Date Jose Chandler MD [address] [place] [address] PCP - Generalmi Medicine09/24/23 Sonam Drake NP [address] [place] [address] Nurse PractitionerNorth[facility]09/24/23Team MemberRelationshipSpecialtyStart DateEnd Date Jose Chandler MD [address] [place] [address] PCP - GeneralNorth[facility] Center09/24/23 Sonam Drake, RONALDO [address] [place] [address] Nurse PractitionerNorth[facility]09/24/23Team MemberRelationshipSpecialtyStart DateEnd Date Jose Chandler MD [address] [place] [address] PCP - GeneralNorth[facility] Center09/24/23 Sonam Drake, RONALDO [address] [place] [address] Nurse PractitionerNorth[facility]09/24/23Team MemberRelationshipSpecialtyStart DateEnd Date Jose Chandler MD [address] [place] [address] P[facility] - [facility] Byifvbge61/31/24 Sonam Drake NP [address] [place] [address] Nurse PractitionerNorth[facility]09/24/23Team MemberRelationshipSpecialtyStart DateEnd Date Jose Chandler MD [address] [place] [address] PCP - [facility]12/12/23 Sonam Drake NP [address] [place] [address] Nurse PractitionerNorth[facility]09/24/23Team MemberRelationshipSpecialtyStart DateEnd Date Jose Chandler MD [address] [place] [address] PCP - [facility]12/12/23 Sonam Drake NP [address] [place] [address] Nurse PractitionerNorth[facility]09/24/23Team MemberRelationshipSpecialtyStart DateEnd Date Jose Chandler MD [address] [place] [address] PCP - [facility]12/12/23 Sonam Drake NP [address] [place] [address] Nurse PractitionerNorth[facility]09/24/23Team MemberRelationshipSpecialtyStart DateEnd Date Jose Chandler MD [address] [place] [address] PCP - Generalmi Nyqpetwg90/31/24 Sonam Drake NP [address] [place] [address] Nurse PractitionerNorth[facility]09/24/23Team MemberRelationshipSpecialtyStart DateEnd Date Jose Chandler MD [address] [place] [address] P[facility] - [facility] Tevezmtm57/31/24 Sonam Drake NP [address] [place] [address] Nurse PractitionerNorth[facility]09/24/23Team MemberRelationshipSpecialtyStart DateEnd Date Jose Chandler MD [address] [place] [address] PCP - Generalmi Bqfcdsxd74/31/24 Sonam Drake, RONALDO [address] [place] [address] Nurse PractitionerNorth[facility]09/24/23Team MemberRelationshipSpecialtyStart DateEnd Date Jose Chandler MD [address] [place] [address] P[facility] - [facility] Lmivhtei31/31/24 Sonam Drake NP [address] [place] [address] Nurse PractitionerNorth[facility]09/24/23Team MemberRelationshipSpecialtyStart DateEnd Date Jose Chandler MD [address] [place] [address] PCP - Generalmi Zkgsimrr40/31/24 Sonam Drake NP [address] [place] [address] Nurse PractitionerNorth[facility] Center09/24/23Team MemberRelationshipSpecialtyStart DateEnd Date Jose Chandler MD [address] [place] [address] [facility] - [facility] Mwgzhxlz89/31/24 Sonam Drake NP [address] [place] [address] Nurse PractitionerNorth[facility]09/24/23Team MemberRelationshipSpecialtyStart DateEnd Date Jose Chandler MD [address] [place] [address] PCP - [facility] Oiedpfgi24/31/24 Sonam Drake NP Nurse PractitionerFaHouston [facility] - [facility]09/24/23 Za Wilkerson NP [address] [facility] [address] [place] [address] Nurse PractitionerNeurology04/21/24 Sivan Banda DO [address] [place] [address] Referring PhysicianNeurology04/21/24Team MemberRelationshipSpecialtyStart DateEnd Date Jose Chandler MD [address] [place] [address] PCP - GeneralFamily Dtpthqpu28/31/24 Sonam Drake NP Nurse PractitionerFamily Medicine09/24/23 Za Wilkerson NP [address] [place], [place] Nurse PractitionerNeurology04/21/24 Sivan Banda DO [address] [place], [place] [address] Referring PhysicianNeurology04/21/24Team MemberRelationshipSpecialtyStart DateEnd Date Jose Chandler MD [address] [address] PCP - GeneralFamily Wgfpbvhz85/31/24 Sonam Drake NP Nurse PractitionerFamily Medicine09/24/23 Za Wilkerson NP [address] [place], [place] Nurse PractitionerNeurology04/21/24 Sivan Banda DO [address] [place] [address] Referring PhysicianNeurology04/21/24Team MemberRelationshipSpecialtyStart DateEnd Date Jose Chandler MD [address] [place] [address] PCP - GeneralFamily Yjljvepe58/31/24 Sonam Drake, RONALDO Nurse PractitionerFamily Medicine09/24/23 Za Wilkerson NP [address] [place], [place] Nurse PractitionerNeurology04/21/24 Sivan Banda DO [address] [place] [address] Referring PhysicianNeurology04/21/24Team MemberRelationshipSpecialtyStart DateEnd Date Jose Chandler MD [address] [place] [address] PCP - GeneralLucas County Health Centerly Jpzuoihq42/31/24 Sonam Drake NP Nurse PractitionerFanvly Medicine09/24/23 aZ Wilkerson NP [address] [place], [place] Nurse PractitionerNeurology04/21/24 Sivan Banda DO [address] [place] [address] Referring PhysicianNeurology04/21/24Team MemberRelationshipSpecialtyStart DateEnd Date Jose Chandler MD [address] [place] [address] PCP - GeneralFamily Wfcsufww29/31/24 Sonam Drake NP Nurse PractitionerFamily Medicine09/24/23 Za Wilkerson, RONALDO [address] [place], [place] Nurse PractitionerNeurology04/21/24 Sivan Banda DO [address] [place], [place] [address] Referring PhysicianNeurology04/21/24Team MemberRelationshipSpecialtyStart DateEnd Date Jose Chandler MD [address] [place] [address] PCP - GeneralFamily Ytjnafgh11/31/24 Sonam Drake NP Nurse PractitionerFanvly Medicine09/24/23 Za Wilkerson NP [address] [place] Nurse PractitionerNeurology04/21/24 Sivan Banda DO [address] [place], [place] [address] Referring PhysicianNeurology04/21/24 Team Status: Active Member Role [...] May 28, 2024 End: May 28, 2024Ameena FontenotConnecticut Valley Hospital ProviderActiveStart: May 28, 2024 End: May 28, 2024Team MemberRelationshipSpecialtyStart DateEnd Date Jose Chandler MD [address] [place] [address] PCP - [facility] Wulefzaz99/31/24 Sonam Drake NP Nurse PractitionerBoston [facility] Medicine09/24/23 Za Wilkerson NP [address] [place] Nurse PractitionerNeurology04/21/24 Sivan Banda DO [address] [place], [place] [address] Referring PhysicianNeurology04/21/24Team MemberRelationshipSpecialtyStart DateEnd Date Jose Chandler MD [address] [place] [address] PCP - [facility] Rwheulvk37/31/24 Sonam Drake NP Nurse PractitionerFanvly Medicine09/24/23 Za Wilkerson NP [address] [place], [place] Nurse PractitionerNeurology04/21/24 Sivan Banda DO [address] [place], [place] [address] Referring PhysicianNeurology04/21/24Team MemberRelationshipSpecialtyStart DateEnd Date Jose Chandler MD [address] [place] [address] PCP - GeneralFamily Zgyidjec49/31/24 Sonam Drake NP Nurse PractitionerFamily Medicine09/24/23 Za Wilkerson NP [address] [place] Nurse PractitionerNeurology04/21/24 Sivan Banda DO [address] [place] [address] Referring PhysicianNeurology04/21/24Team MemberRelationshipSpecialtyStart DateEnd Date Jose Chandler MD [address] [place] [address] PCP - GeneralLucas County Health Centerly Aqlyrogl12/31/24 oSnam Drake NP Nurse PractitionerFamily Medicine09/24/23 Za Wilkerson NP [address] [place] [address] Nurse PractitionerNeurology04/21/24 Sivan Banda DO [address] [place] [address] Referring PhysicianNeurology04/21/24Team MemberRelationshipSpecialtyStart DateEnd Date Jose Chandler MD [address] [place] [address] PCP - GeneralFamily Qfwnhyjo94/31/24 Sonam Drake NP Nurse PractitionerFamily Medicine09/24/23 Za Wilkerson, RONALDO [address] [place] [address] Nurse PractitionerNeurology04/21/24 Sivan Banda DO [address] [place] [address] Referring PhysicianNeurology04/21/24Team MemberRelationshipSpecialtyStart DateEnd Date Jose Chandler MD [address] [place] [address] PCP - GeneralFamily Zihjygqv03/31/24 Sonam Drake NP Nurse PractitionerFanvly Medicine09/24/23 Za Wilkerson NP [address] [place] [address] Nurse PractitionerNeurology04/21/24 Sivan Banda DO [address] [place] [address] Referring PhysicianNeurology04/21/24Team MemberRelationshipSpecialtyStart DateEnd Date Jose Chandler MD [address] [place] [address] PCP - GeneralFamily Tcfoeghw54/31/24 Sonam Drake NP Nurse PractitionerFamily Medicine09/24/23 Za Wilkerson, RONALDO [address] [place] [address] Nurse PractitionerNeurology04/21/24 Sivan Banda DO [address] [place] [address] Referring PhysicianNeurology04/21/24Team MemberRelationshipSpecialtyStart DateEnd Date Jose Chandler MD [address] [place] [address] P[facility] - [facility] Xxsqvcil47/31/24 Sonam Drake NP Nurse PractitionerLucas County Health Centerly Medicine09/24/23 Za Wilkerson, RONALDO [address] [place] [address] Nurse PractitionerNeurology04/21/24 Sivan Banda DO [address] [place] [address] Referring PhysicianNeurology04/21/24Team MemberRelationshipSpecialtyStart DateEnd Date Jose Chandler MD [address] [place] [address] PCP - [facility] Wrpjzxew22/31/24 Sonam Drake NP Nurse PractitionerFamily Medicine09/24/23 Za Wilkerson, RONALDO [address] [place] [address] Nurse PractitionerNeurology04/21/24 Sivan Banda DO [address] [place] [address] Referring PhysicianNeurology04/21/24Team MemberRelationshipSpecialtyStart DateEnd Date Jose Chandler MD [address] [place] [address] PCP - Generalmily Yowrtfac82/31/24 Sonam Drake NP Nurse PractitionerFamily Medicine09/24/23 Za Wilkerson, RONALDO [address] [place] [address] Nurse PractitionerNeurology04/21/24 Sivan Banda DO [address] [place] [address] Referring PhysicianNeurology04/21/24Team MemberRelationshipSpecialtyStart DateEnd Date Jose Chandler MD [address] [place] [address] PCP - GeneralFamily Veqicmgn39/31/24 Sonam Drake NP Nurse PractitionerFamily Medicine09/24/23 Za Wilkerson NP [address] [place] [address] Nurse PractitionerNeurology04/21/24 Sivan Banda DO [address] [place] [address] Referring PhysicianNeurology04/21/24Team MemberRelationshipSpecialtyStart DateEnd Date Jose Chandler MD [address] [place] [address] PCP - Generalmily Xziugxai07/31/24 Sonam Drake NP [facility] Medicine09/24/23 Za Wilkerson, RONALDO [address] [place] [address] Nurse PractitionerNeurology04/21/24 Sivan Banda DO [address] [place], [facility] Referring PhysicianNeurology04/21/24Team MemberRelationshipSpecialtyStart DateEnd Date Jose Chandler MD [address] [place] [address] PCP - GeneralFamily Ldnbcvbh61/31/24 Sonam Drake NP Nurse PractitionerFafree hospital for women Medicine09/24/23 Za Wilkerson NP [address] [place] [address] Nurse PractitionerNeurology04/21/24 Sivan Banda DO [address] [place] [address] Referring PhysicianNeurology04/21/24 Team Status: Inactive Member Role Status Dates Ameena Vera Primary Care Provider Active Sta rt: October 19, 2024 End: October 19, 2024Ameena Woodending ProviderActiveStart: October 19, 2024 End: October 19, 2024Team MemberRelationshipSpecialtyStart DateEnd Date Jose Chandler MD PCP - Generalmily Phbmghrz71/31/24 Sonam Drake NP Nurse PractitionerFanvly Medicine09/24/23 Za Wilkerson NP Nurse PractitionerNeurology04/21/24 Sivan Banda DO [address] [place] [address] Referring PhysicianNeurology04/21/24Team MemberRelationshipSpecialtyStart DateEnd Date Jose Chandler MD [facility] - [facility] Exqpgoev55/31/24 Sonam Drake NP [facility] Pract[facility]er[facility] Medicine09/24/23 Za Wilkerson NP Nurse PractitionerNeurology04/21/24 Sivan Banda DO [address] [place] [address] Referring PhysicianNeurology04/21/24 Team Status: Active Member Role Status Dates Ameena Vera NP-C Primary Care Provider Active Team Status: Inactive Member Role Status Dates Ameena Vera [employer]ODU[employer] W[employer]ER-C Primary Care Provider Active Start: October 19, 2024 End: October 19, 2024Ameena Vera , A[employer]ICULTURAL PRODUCE WASHER-CAttending ProviderActiveStart: October 19, 2024 End: October 19, 2024 Team Status: Active Member Role Status Dates Ameena Vera , [employer]ODUCE WASHER-C Primary Care Provider Active Start: October 26, 2024 Kasi Bennett MDAttending ProviderActiveStart: October 26, 2024 Team Status: Inactive Member Role Status Dates Ameena Vera , [employer] PRODUCE WASHER-C Primary Care Provider Active Start: November 23, 2024 End: November 23, 2024Ameena Vera , A[employer]ICULTURAL PRODUCE WASHER-CAttending ProviderActiveStart: November 23, 2024 End: November 23, 2024 Team Status: Active Member Role/Relationship Status Dates Ameena Vera , A[employer]URAL PRODUCE WASHER-C Primary Care Provider Active Team Status: Inactive Member Role/Relationship Status Dates Ameena Vera , [employer] PRODUCE WASHER-C Primary Care Provider Active Start: October 19, 2024 End: October 19, 2024Ameena Vera , AGRICULTURAL PRODUCE WASHER-CAttending ProviderActiveStart: October 19, 2024 End: October 19, 2024 Team Status: Active Member Role/Relationship Status Dates Ameena Alyssa Vera , A[employer]URAL PRODUCE WASHER-C Primary Care Provider Active Start: October 26, 2024 Kasi Bennett MDAttending ProviderActiveStart: October 26, 2024 Team Status: Inactive Member Role/Relationship Status Dates Ameena Alyssa Vera , A[employer]URAL PRODUCE WASHER-C Primary Care Provider Active Start: November 23, 2024 End: November 23, 2024Ameena Vera , A[employer]ICULTURAL PRODUCE WASHER-CAttending ProviderActiveStart: November 23, 2024 End: November 23, 2024 Team Status: Active Member Role/Relationship Status Dates Ameena Vera , [employer] PRODUCE WASHER-C Primary Care Provider Active Start: November 30, 2024 Ameena Vera , AGRICULTURAL PRODUCE WASHER-CAttending ProviderActiveStart: November 30, 2024 Team Status: Inactive Member Role/Relationship Status Dates Ameena Vera , [employer]ODUCE WASHER-C Primary Care Provider Active Start: December 09, 2024 End: December 09, 2024Lui Banks II, MDAttending ProviderActiveStart: December 09, 2024 End: December 09, 2024Team MemberRelationshipSpecialtyStart DateEnd Date Shaikh Connelly MD PCP - GeneralInternal Medicine Jose Chandler MD PCP - GeneralFamily Medicine09/23/2409 Unallocated, Cris Hernandez MD [address] [place] [address] PCP - GeneralFamily Isoteklj66/15/ Jose Chandler MD PCP - GeneralFamily Ywdyvfrv03/31/24 Sonam Drake, RONALDO Nurse PractitionerFamily Medicine09/24/23 Za Wilkerson NP [address] [facility] [place] [address] Nurse PractitionerNeurology04/21/24 Sivan Banda DO [address] [place] [address] Referring PhysicianNeurology04/21/24Team MemberRelationshipSpecialtyStart DateEnd Date Shaikh Connelly MD PCP - GeneralInternal Xietaawc42/1/233 Shaikh Connelly MD PCP - GeneralInternal Medicine Jose Chandler MD PCP - GeneralFamily Medicine09/23/2409 UnallocatCris rubi MD [address] [place] [address] PCP - GeneralFamily Odtfrqqo84/15/ Jose Chandler MD PCP - GeneralFamily Eyjlmhed03/31/24 Sonam Drake NP Nurse PractitionerFanvly Medicine09/24/23 Za Wilkerson, RONALDO [address] [place] [address] Nurse PractitionerNeurology04/21/24 Sivan Banda DO [address] [place] [address] Referring PhysicianNeurology04/21/24Team MemberRelationshipSpecialtyStart DateEnd Date Jose Chandler MD PCP - GeneralFamily Medicine09/23/2409 UnallocatCris rubi MD [address] [facility] [place] [address] PCP - GeneralFamily Eokgnddk95/15/ Jose Chandler MD PCP - GeneralFamily Lpnjkfab68/31/24 Sonam Drake NP Nurse PractitionerFamily Medicine09/24/23 Za Wilkerson NP [address] [facility] [place] [address] Nurse PractitionerNeurology04/21/24 Sivan Banda DO [address] [place] [address] Referring PhysicianNeurology04/21/24Team MemberRelationshipSpecialtyStart DateEnd Date Jose Chandler MD PCP - GeneralFamily Dcnyetph83/31/24 Sonam Drake NP Nurse PractitionerFamily Medicine09/24/23 Za Wilkerson NP Nurse PractitionerNeurology04/21/24 Sivan Banda DO [address] [place] [address] Referring PhysicianNeurology04/21/24Team MemberRelationshipSpecialtyStart DateEnd Date Shaikh Connelly MD PCP - GeneralInternal Ypmdfhki93/1/233 Shaikh Connelly MD PCP - GeneralInternal Medicine Jose Chandler MD PCP - GeneralFamily Medicine09/23/2409 Unallocated, Cris Hernandez MD [address] [place] [address] PCP - GeneralFamily Vxovlubt17/ Jose Chandler MD PCP - GeneralFamily Ileaszdg01/31/24 Sonam Drake, RONALDO Nurse PractitionerFamily Medicine09/24/23 Za Wilkerson, RONALDO [address] [place] [address] Nurse PractitionerNeurology04/21/24 Sivan Banda DO [address] [place] [address] Referring PhysicianNeurology04/21/24 INFORMATION SOURCE (unrecogn ized section and content) DATE CREATED AUTHOR 09/10/2021 [facility] DATE CREATED AUTHOR AUTHOR'S ORGANIZ ATION 06/08/2022 [facility] DATE CREATED AUTHOR AUTHOR'S ORGANIZ ATION 10/06/2023 [facility] DATE CREATED AUTHOR AUTHOR'S ORGANIZ ATION 06/01/2024 [facility] DATE CREATED AUTHOR AUTHOR'S ORGANIZ ATION 11/02/2024 [facility] EPIC DATE CREATED AUTHOR AUTHOR'S ORGANIZ ATION 12/05/2024 [facility] REASON FOR VISIT (unrecogniz ed section and content) ReasonOnset DateCommentsMed Jkcmuk694ReasonCommentsMed RefillReason CommentsSleep ApneaReasonCommentsDiabetesReasonOnset DateCommentsMed Refill 4ReasonCommentsFollow-dh8dhJfftblc FrequencyC/o of nocturnal enuresis ReasonOnset DateCommentsMed Zyvrbi894ReasonOnset DateCommentsMed Refill 4ReasonOnset DateCommentsMed Myrvxp614ReasonCommentsCoughNasal CongestionReasonOnset DateCommentsMed Rtrlkv7503/09/2024ReasonCommentsFollow-up ReasonCommentsSkin CheckReasonOnset DateCommentsMed Cuwzgr1803/30/2024ReasonOnset DateCommentsMed Aoxrdi6505/06/2024ReasonCommentsKnee PainReasonCommentsSleep Apnea ReasonOnset DateCommentsMed Uhjihu8006/23/2024ReasonOnset DateCommentsMed Refill 07/22/2024ReasonCommentsNEWPTH REF/LABSpecialtyDiagnoses / ProceduresReferred By ContactReferred To ContactEndocrinology Diagnoses Low serum parathyroid hormone (PTH) Procedures NE OFFICE/OUTPATIENT NEW HIGH MDM 60 MINUTES Ameena Vera, RONALDO [address] [place] [address] Phone: tel: fax: Kasi Bennett MD [address] [facility] [place] [address] Phone: tel: fax: Referral IDStatusReasonStart DateExpiration DateVisits RequestedVisits [id number] Review Specialty Services Required 1ReasonOnset DateCommentsMed Wwqwsz9610/05/2024ReasonComments Follow-upPTH LAB Goals (unrecognized section and content) [...] BE BASED ON THE PRIMARY CLINICAL RECORDS. [facility]. provides no warranty or guarantee of the accuracy or completeness of information in this document.
--- OUTSIDE RECORDS SUMMARY | 2025-01-11 07:12 | XMS_ITS | Clinical Summary ---
Author Organization [facility] Healthcare Address [address] [place] [place] [address] Care Team Providers Care Access Spec Name Role Phone Ijeoma Drake ELECTRICAL SYSTEMS ENGINEER Unavailable [phone] Jose Chandler MD Primary Care Provider [phone] Za Wilkerson ELECTRICAL SYSTEMS ENGINEER Unavailable [phone] Madhuri Banda DO Unavailable [phone] Allergies No known active allergies Medications MedicationSigDispense QuantityRefillsLast FilledStart DateEnd DateStatus rizatriptan (Maxalt) 10 MG tablet Indications:Migraine with aura and without status migrainosus, not intractable Take 1 tablet (10 mg) by mouth 1 (one) time if needed for migraine May repeat in 2 hours if unresolved. Do not exceed 30 mg in 24 hours. 9 tablet 4Active Continuous Glucose Tester Armature Or Fields (Dexcom G7 Tester Armature Or Fields) device Indications:Type 2 diabetes mellitus with diabetic microalbuminuria, without long-term current use of insulin ([facility])1 each continuously 1 each 5Active Semaglutide, 2 MG/DOSE, (Ozempic, 2 MG/DOSE,) 8 MG/3ML solution pen-injector Indications:Type 2 diabetes mellitus with diabetic microalbuminuria, without long-term current use of insulin ([facility])Inject 2 mg under the skin every 7 (seven) days 9 mL 5Active colchicine 0.6 MG tablet Indications:Chronic gout of multiple sites, unspecified causeTAKE 2 TABLETS BY MOUTH AT ONSET OF ACUTE GOUT, MAY TAKE 1 TABLET IN 1 HOURS. NO MORE THAN 3 TABLETS DAILY 15 tablet 5Active oxyCODONE-acetaminophen (Percocet) 5-325 MG tablet Take 1 tablet by mouth Daily as ktxvzy835Active famotidine (Pepcid) 20 MG tablet Indications:Gastroesophageal reflux disease without esophagitisTake 1 tablet (20 mg) by mouth in the morning and 1 tablet (20 mg) before bedtime. 180 tablet 5Active furosemide (Lasix) 20 MG tablet Indications:Bilateral lower extremity edemaTake 1 tablet (20 mg) by mouth if needed (swelling in legs) Take 20 mg by mouth if needed 90 tablet 5Active divalproex (Depakote) 500 MG EC tablet Indications:Migraine with aura and without status migrainosus, not intractable Take 1 tablet (500 mg) by mouth in the morning and 1 tablet (500 mg) before bedtime. Do not crush, chew, or split. 180 tablet 6Active metFORMIN (Glucophage) 500 MG tablet Indications:Type 2 diabetes mellitus with diabetic microalbuminuria, without long-term current use of insulin ([facility])Take 1 tablet (500 mg) by mouth in the morning and 1 tablet (500 mg) in the evening. Take with meals. 180 tablet 5Active alendronate (Fosamax) 70 MG tablet Indications:Osteoporosis, unspecified osteoporosis type, unspecified pathological fracture presenceTake 1 tablet (70 mg) by mouth every 7 (seven) days Take in the morning with a full glass of water,on an empty stomach, and do not take anything else by mouth or lie down for the next 30 min. 12 tablet 6Active pregabalin (Lyrica) 75 MG capsule Indications:Diabetic polyneuropathy associated with type 2 diabetes mellitus (HCC)Take 1 capsule (75 mg) by mouth in the morning and 1 capsule (75 mg) in the evening and 1 capsule (75 mg) before bedtime. 90 capsule 5Active baclofen (Lioresal) 20 MG tablet Indications:Lumbar back painTake 1 tablet (20 mg) by mouth 3 (three) times a day as needed for muscle spasms 90 tablet 5Active rosuvastatin (Crestor) 20 MG tablet Indications:Other hyperlipidemiaTake 1 tablet (20 mg) by mouth in the evening 90 tablet 5Active Active Problems ProblemNoted DateDiagnosed DateLow serum parathyroid hormone (PTH)06/03/2024ody mass index (BMI) 39.0-39.9, adult05/19/2024igarette nicotine dependence without cqtbfqykeyai66/08/2025 Assessment & Plan (08/20/2024 6:27 AM EDT): [...] toprovider when ready to start this process Assessment [...] toprovider when ready to start this process Xaengteuzkfan86/08/2025hronic gout of multiple sites05/19/2024 Assessment & Plan (05/19/2024 11:44 AM EDT): Allopurinol daily Colchicine prn Check labs yearly and prn sxs or dose change Acute pain of right knee05/19/2024 Assessment & Plan (05/19/2024 12:58 PM EDT): Check xray Refer to ortho JANETT (obstructive sleep apnea)03/30/2024 Assessment & Plan (05/19/2024 11:42 AM EDT): [...] current regimen as directed by neurology. Urinary gryrnysdw12/18/2024Mixed urge and stress tkinlwdwpsja12/22/2024 Assessment & Plan (12/30/2023 1:19 PM EST): Referral sent to Urology for urinary dysfunction. Pt has not gone to see them yet. Assessment & Plan (10/03/2023 10:31 AM EDT): Referral sent to urology. Cxdolnd4310/03/2023 Assessment & Plan (12/30/2023 1:18 PM EST): Referral sent to Neurology for suspected first JANETT. First appointment tomorrow. Assessment & Plan (10/03/2023 10:57 AM EDT): Screening for JANETT- Referral sent to [facility] [place] Lumbar back pain08/22/2023 Assessment & Plan (10/03/2023 10:33 AM EDT): Lyrica. Percocet PRN Assessment & Plan (08/22/2023 11:34 AM EDT): Acute worsening of chronic low back pain. XR - no acute finding, old compression fx and multilevel DJD changes. Baclofen as needed as its helping. Appt with pain clinic tomorrow. Bilateral lower extremity edema08/05/2023 Assessment & Plan (08/20/2024 11:22 AM EDT): [...] venous insufficiency. Use lasix as needed. Back spasm07/04/2023 Assessment & Plan (07/04/2023 2:04 PM EDT): Patient reports back spasms. On robaxin at night. Helps but does not last long enough. Increase to TID dosing. Patient asked to inform Pain Clinic Metatarsal /23/2024 Assessment & Plan (07/04/2023 1:54 PM EDT): S/p surgery. Following Podiatry. Closed fracture of proximal end of left fibula with routine tjnrkly1407/04/2023 Assessment & Plan (07/04/2023 1:54 PM EDT): Conservative measures. Following Podiatry. Melanocytic nevi of trunk05/02/2023Migraine with aura and without status migrainosus, not hsuqmzpjqjn32/21/2024 Assessment & Plan (05/19/2024 6:51 AM EDT): Current meds: maxalt, depakote Assessment & Plan (07/04/2023 2:05 PM EDT): Well controlled. On Dapakote for migraine px. Uses relpax as needed for abortive therapy. Assessment & Plan (05/02/2023 2:22 PM EDT): Well controlled. On Dapakote for migraine px. Uses relpax as needed for abortive therapy. Other xnylykmbfhcdtc73/21/2024 Assessment & Plan (05/19/2024 6:52 AM EDT): [...] EDT): C/w crestor. Check lipid panel Essential gcbasinvospe49/21/2024 Assessment & Plan (08/20/2024 11:23 AM EDT): [...] Morbid (severe) obesity due to excess calories (E66.01)05/02/2023 Assessment & Plan (08/20/2024 6:27 AM EDT): [...] months. Body mass index [BMI] 40.0-44.9, adult (Z68.41)05/02/2023 Assessment & Plan (05/02/2023 2:25 PM EDT): On Ozempic. Pt trying to lose weight with dietary modifications. Lost about 10 lbs in 2-3 months. Encounter for screening mammogram for breast paserg1601/29/2023 Assessment & Plan (01/29/2023 12:36 PM EST): Last mammogram over 2 years ago -Ordered mammogram for the patient. Encounter for screening for malignant neoplasm of colon01/29/2023 Assessment & Plan (01/29/2023 12:37 PM EST): Never had Colon Cancer Screening - average risk, normal stool and no GI symptoms. Ordered Cologuard. Basal cell carcinoma (BCC) of skin of nose01/29/2023Type 2 diabetes mellitus with diabetic microalbuminuria, without [...] weight loss too. She is tolerating 0.5 mgdose w/o any problems. Will increase to 1 mg qweekly. Ordered urine albumin/creatinine. Resolved Problems ProblemNoted DateDiagnosed DateResolved DateOther acute kyzwhcgej51/01/2025 08/20/2024Elevated blood uric acid level Assessment & Plan (05/19/2024 6:58 AM EDT): Currently taking allopurinol Hospital discharge follow-up Assessment & Plan (08/22/2023 11:33 AM EDT): Patient here for follow up after recent hospital admission at [facility] Reviewed hospital records. Answered patient's questions and concerns related to hospital stay/medication changes/results of testing. Back pain is better. C/w baclofen as needed. Has an apt with pain clinic Assessment & Plan (07/04/2023 2:15 PM EDT): Patient here for follow up after recent hospital admission at [facility] Reviewed hospital records. Answered patient's questions and concerns related to hospital stay/medication changes/results of testing. Upper respiratory infection with cough and vkooiojvua10 Assessment & Plan (03/03/2024 11:35 AM EST): [...] add ventolin to help with wheezing, benzonatate asneeded for cough. I would have prescribed Prednisone too but she just finished oral prednisone for her carpal tunnel syndrom/wrist pain and with hx of T2DM - I will stay away from it pinky when she hasno resp distress and reports her wheezing is improved from before. She has no known lung disease but she is a former smoker, morbidly obese and could have an underlying obs lung disease. We will address testing for it later on once she is healthy and not acutely sick. Encounters DateTypeDepartmentCare WpqbEtuzqrphbrw42/22/2025 10:10 AM EDTOffice Visit [facility] [place] [facility] [address] [place] [address] Kasi Bennett MD Low serum parathyroid hormone (PTH) (Primary Dx); Hypercalcemia; Vitamin D deficiency; Oaxwxurhdyzxoz93/22/2025amboo flowsheet [facility] [address] [place] [address] Kasi Bennett MD from Last 3 Months Family History Medical HistoryRelationNameCommentsCancerMaternal GrandfatherDiabetesMaternal GrandfatherHeart diseaseMaternal GrandfatherHypertensionMaternal Grandfather ArthritisMotherNancyCancerMotherNancyDiabetesMotherNancyHeart diseaseMotherNancy HyperlipidemiaMotherNancyHypertensionMotherNancyRestless legs syndromeMother NancyMelanomaNeg HxRelationNameStatusCommentsBrotherAliveFatherAliveMaternal GrandfatherMotherNancyDeceased Social History Tobacco UseTypesPacks/DayYears UsedDateSmoking Tobacco: Every BqtLglmtnjknn755 Passive Smoke Exposure: PastSmokeless Tobacco: NeverAlcohol UseStandard Drinks/WeekCommentsNever0 (1 standard drink = 0.6 oz pure alcohol)B1300 Health LiteracyAnswerDate RecordedHow often do you need to have someone help you when you read instructions, pamphlets, or other written material from your doctor or pharmacy?Patient declines to yfpvolh5610/02/2023Social Connection and Isolation PanelAnswerDate RecordedIn a typical week, how many times do you talk on the phone with family, friends, or neighbors?More than three times a week10/02/2023 How often do you get together with friends or relatives?Twice a week10/02/2023 How often do you attend confucianist or confucianist services?Patient mwjcexrm83/21/2024 Do you belong to any clubs or organizations such as confucianist groups, unions, fraternal or athletic groups, or school groups?Patient upplptwk97/21/2024How often do you attend meetings of the clubs or organizations you belong to?Patient zkvowwks23/21/2024re you , , , , never , or living with a partner?Weqlcql0510/02/2023UDIT-CAnswerDate RecordedQ1: How often do you have a drink containing alcohol?Monthly or less10/02/2023Q2: How many drinks containing alcohol do you have on a typical day when you are drinking?1 or Q3: How often do you have six or more drinks on one occasion?Never10/02/2023Overall Financial Resource Strain (CARDIA)AnswerDate RecordedHow hard is it for you to pay for the very basics like food, housing, medical care, and heating?Patient jwpzkbca39/21/2024HQ-2AnswerDate Recorded Patient Health Questionnaire-2 Zrtzv276[facility] - Occupational Stress QuestionnaireAnswerDate RecordedDo you feel stress - tense, restless, nervous, or anxious, or unable to sleep at night because yourmind is troubled all the time - these days?To some mwtcrn0310/02/2023Exercise Vital SignAnswerDate RecordedOn average, how many days per week do you engage in moderate to strenuous exercise (like a brisk walk)?0 days10/02/2023On average, how many minutes do you engage in exercise at this level?0 min10/02/2023Hunger Vital SignAnswerDate RecordedWithin the past 12 months, you worried that your food would run out before you got the money to buymore.Patient declined 10/02/2023Within the past 12 months, the food you bought just didn't last and you didn't have money to get more.Patient cenqdczj25/21/2024RAPARE - TransportationAnswerDate RecordedIn the past 12 months, has lack of transportation kept you from medical appointments or from getting medications? Patient cwryhrhu31/21/2024In the past 12 months, has lack of transportation kept you from meetings, work, or from getting things needed for daily living?Patient oevvqiwe88/21/2024Housing Stability Vital SignAnswerDate RecordedIn the last 12 months, was there a time when you were not able to pay the mortgage or rent on time?Patient gybdgabu37/21/2024Number of Times Moved in the Last YearNot on file 10/02/2023t any time in the past 12 months, were you homeless or living in a senior care (including now)?Patient /21/2024CommentsUnknownSex and Gender InformationValueDate RecordedSex Assigned at BirthNot on fileLegal Sex Bmjdkv7604/25/2022 6:48 PM EDTGender IdentityNot on fileSexual OrientationNot on file Last Filed Vital Signs Vital SignReadingTime TakenCommentsBlood Lhhqlhyc44/5807 11:10 AM EDT Epyfw8521 9:56 AM ZNFZooxqonzveb35.9 ??C (98.5 ??F)08/20/2024 10:37 AM EDTRespiratory Catd684511/02/2024 9:56 AM EDTOxygen Fwkoeshiuy48%11/02/2024 9:56 AM EDTInhaled Oxygen Concentration--Ddtnto18.3 kg (208 lb)11/02/2024 9:56 AM EDT Ggefqg714.4 cm (5')11/02/2024 9:56 AM EDTBody Mass Index40.62011/02/2024 9:56 AM EDT Plan of Treatment DateTypeDepartmentCare Team (Latest Contact Info)Zlyjoatihob50/24/2026 1:15 PM ESTOffice Visit [facility] [address] [place] [phone] Elida Monroy MD [address] [place] [address] 05/03/2025 1:00 PM EDTOffice Visit [facility] [address] [place] [address] Kasi Bennett MD [address] [place] [address] Procedures Procedure NamePriorityDate/TimeAssociated DiagnosisCommentsPTH, INTACT WITHOUT ANYHHAHZevutoy44/16/2025 11:14 AM EDT Hypercalcemia VITAMIN D 25 HYDROXY OZYZYIfjisow72/15/2025 3:10 PM EDT Low serum parathyroid hormone (PTH) Hypercalcemia Vitamin D deficiency RENAL FUNCTION FLYWHRimtyju51/15/2025 1:56 PM EDT Low serum parathyroid hormone (PTH) Hypercalcemia QERXJSKCXDzzhmun25/15/2025 1:56 PM EDT Low serum parathyroid hormone (PTH) Hypercalcemia from Last 3 Months Results * PTH, intact (10/27/2024 11:14 AM EDT)Specimen (Source)Anatomical Location / LateralityCollection Method / VolumeCollection TimeReceived TimeBloodVenous blood specimen / Unknown Narrative Authorizing ProviderResult TypeResult Maria Fernanda Vera [facility] BLOOD ORDERABLES Final ResultPerforming OrganizationAddressCity/State/ZIP CodePhone Number [facility] * Vitamin D 25 hydroxy Total (10/26/2024 3:10 PM EDT)Specimen (Source)Anatomical Location / LateralityCollection Method / VolumeCollection TimeReceived Time BloodVenous blood specimen / Unknown Narrative Authorizing ProviderResult TypeResult StatusKasi Bennett [facility] BLOOD ORDERABLESFinal ResultPerforming OrganizationAddressCity/State/ZIP CodePhone Number [facility] * Magnesium (10/26/2024 1:56 PM EDT)Specimen (Source)Anatomical Location / LateralityCollection Method / VolumeCollection TimeReceived TimeBloodVenous blood specimen / Unknown Narrative Authorizing ProviderResult TypeResult StatusKasi Bennett [facility]DLAB BLOOD ORDERABLESFinal ResultPerforming OrganizationAddressCity/State/ZIP CodePhone Number [facility] * Renal function panel (10/26/2024 1:56 PM EDT)Specimen (Source)Anatomical Location / LateralityCollection Method / VolumeCollection TimeReceived Time BloodVenous blood specimen / Unknown Narrative Authorizing ProviderResult TypeResult StatusKasi DELEON BLOOD ORDERABLESFinal ResultPerforming OrganizationAddressCity/State/ZIP CodePhone Number [facility] from Last 3 Months Insurance Care Teams Team MemberRelationshipSpecialtyStart DateEnd Date Jose Chandler MD [address] [place] [phone] PCP - GeneralFamily Huhjqzsm34/31/24 Ijeoma Drake NP Nurse PractitionerFamily Medicine09/24/23 Za Wilkerson NP Nurse PractitionerNeurology04/21/24 Madhuri Banda DO [address] [place] [address] Referring PhysicianNeurology04/21/24
--- OUTSIDE RECORDS SUMMARY | 2025-01-11 07:12 | XMS_ITS | Clinical Summary ---
Author Organization [facility] Address [address], [address] [place] [address] Care Team Providers Care Wax Pumper Name Role Phone House Sr., Jonathan INGRAM Primary Care Provider + Allergies Active AllergyReactionsCriticalityNoted DateCommentsMultiple Skjeazp1802/26/2024 Medications MedicationSigDispense QuantityRefillsLast FilledStart DateEnd DateStatus alendronate (FOSAMAX) 70 MG tablet TAKE 1 TABLET BY MOUTH EVERY OIXXHR4308/17/2021ctive ascorbic acid (VITAMIN C) 500 MG tablet Active aspirin 81 MG EC tablet Active diclofenac (VOLTAREN) 75 MG EC tablet TAKE 1 TABLET BY MOUTH TWICE DAILY08/07/2021ctive divalproex (DEPAKOTE) [address] tablet Depakote 500 mg tablet,delayed release Take 1 tablet twice a day by oral route.Active famotidine (PEPCID) 20 MG tablet TAKE 1 TABLET BY MOUTH EVERY DAY08/16/2021ctive hydroCHLOROthiazide (HYDRODIURIL) 25 MG tablet TAKE 1 TABLET BY MOUTH EVERY DAY08/16/2021ctive glimepiride (AMARYL) 1 MG tablet TAKE 1/2 TABLET BY MOUTH EVERY NZIMHNI5206/05/2021ctive Lancets (ONETOUCH DELICA PLUS AJEQBP87K) [facility] [place] TO [place] BLOOD SUGAR TWICE DAILY06/08/2021ctive metFORMIN (GLUCOPHAGE) 500 MG tablet 2 tablets 2 times daily (with meals)08/07/2021ctive pregabalin (LYRICA) 50 MG capsule Lyrica 50 mg capsule Take 1 capsule twice a day by oral route.Active traZODone (DESYREL) 50 MG tablet TAKE 1 TABLET BY MOUTH EVERY NIGHT AT CBZHEKJ3908/17/2021ctive oxyCODONE-acetaminophen (PERCOCET) 10-325 MG per tablet Percocet 10 mg-325 mg tablet Take 1 tablet as needed by oral route.Active methocarbamol (ROBAXIN) 750 MG tablet TAKE 1 TABLET BY MOUTH EVERY NIGHT AT GJYKZVB2608/15/2021ctive ALLOPURINOL PO Take by mouthActive baclofen (LIORESAL) 10 MG tablet TAKE 1 TO 2 TABLETS BY MOUTH THREE TIMES DAILYActive ONETOUCH VERIO strip USE TWICE DAILY WLKFHUSG47/08/2023ctive OZEMPIC, 1 MG/DOSE, 4 MG/3ML SOPN INJECT 1 MG UNDER THE SKIN ONCE A WEEKActive colchicine (COLCRYS) 0.6 MG tablet 12/24/2022ctive furosemide (LASIX) 20 MG tablet 02/02/2024ctive rosuvastatin (CRESTOR) 20 MG tablet Take 1 tablet by mouth daily10/03/2023ctive Family History Medical HistoryRelationNameCommentsDeep Vein ThrombosisFatherDiabetesMotherHeart FailureMotherRelationNameStatusCommentsBrotherAliveFatherAliveMaternal GrandfatherDeceasedMaternal GrandmotherDeceasedMotherDeceasedPaternal GrandfatherDeceasedPaternal GrandmotherDeceased Social History Tobacco UseTypesPacks/DayYears UsedDateSmoking Tobacco: Every DayCigarettes Smokeless Tobacco: Never Tobacco Cessation:Ready to Q uit: Not Asked; Counseling Given: Not Answered Alcohol UseStandard Drinks/WeekCommentsYes0 (1 standard drink = 0.6 oz pure alcohol)occasionalAHC UtilitiesAnswerDate RecordedIn the past 12 months has the [place], gas, oil, or water [employer] threatened to shut off services in your home?No02/26/2024PHQ-2AnswerDate RecordedPHQ-9 Total Mgaaz962Hunger Vital SignAnswerDate RecordedWithin the past 12 months, you worried that your food would run out before you got the money to buymore.Never true02/26/2024 Within the past 12 months, the food you bought just didn't last and you didn't have money to get more.Never true02/26/2024PRAPARE - TransportationAnswerDate RecordedIn the past 12 months, has lack of transportation kept you from medical appointments or from getting medications?No02/26/2024In the past 12 months, has lack of transportation kept you from meetings, work, or from getting things needed for daily living?No02/26/2024Housing Stability Vital SignAnswerDate RecordedIn the last 12 months, was there a time when you were not able to pay the mortgage or rent on time?No02/26/2024Number of Times Moved in the Last Year Not on file02/26/2024t any time in the past 12 months, were you homeless or living in a fdc (including now)?No02/26/2024Food InsecurityAnswerDate RecordedWithin the past 12 months, you worried that your food would run out before you got the money to buymore.Within the past 12 months, the food you bought just didn't last and you didn't have money to get more.1 02/26/2024CommentsNoSex and Gender InformationValueDate RecordedSex Assigned at BirthNot on fileLegal IuhBbtdxi35/10/2013 6:26 PM ESTGender Identity Not on fileSexual OrientationNot on file Last Filed Vital Signs Vital SignReadingTime TakenCommentsBlood Iodefjji549/76002/26/2024 10:50 AM EST Pulse--Temperature--Respiratory Rate--Oxygen Saturation--Inhaled Oxygen Concentration--Mydiee84.8 kg (220 lb)02/26/2024 10:50 AM FGFAyigwc993.5 cm (5' 2 )02/26/2024 10:50 AM ESTBody Mass Index40.24002/26/2024 10:50 AM EST Plan of Treatment DateTypeDepartmentCare Team (Latest Contact Info)Gffkpubtsyf79/21/2026 10:15 AM ESTOffice Visit [facility] Part of [address] [place] [address] Nikkie Barclay, 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 - CN[address] [place] [address] Return in about 1 year (around 02/25/2025) for yearly--health[employer] ins primary per pt, then medicare--last yearly 02/26/2024--ok per Nikkie for 1 yr f/uHealth MaintenanceDue DateLast TgfeQthyjrveLfhpoo54/10/1974HIV cfzxyn3410/21/1978 Hepatitis C tzowqc4610/21/1981DTaP/Tdap/Td vaccine (1 - Tdap)10/21/1982 Pneumococcal 50+ years Vaccine (1 of 2 - PCV)10/21/1982Diabetes kcqwin9010/21/1998 Tjxpdwmojxq92/10/2009Colorectal Cancer Lzijdx5910/21/2008FIT/FOBT: Average risk 10/21/2008Fecal-DNA (Cologuard): Average risk10/21/2008Sigmoidoscopy/CT krcktxvialkz89/10/2009Shingles vaccine (1 of 2)10/21/2013nnual Wellness Visit (Medicare)01/07/2023Respiratory Syncytial Virus (RSV) or age 60 yrs+ (1 - Risk 60-74 years 1-dose series)2023Flu vaccine (#1)5COVID-19 Vaccine ( - season)2024Depression Zpmlui16601/, 5Breast cancer /4Cervical cancer screen DiscontinuedPap xhtmjDnkewslujhiz68/15/2025, 08/30/2021, 08/30/2021HPV (without or with Pap)DiscontinuedHepatitis A vaccineAged OutNo longer eligible based on patient's age to complete this topicHepatitis B vaccineAged OutNo longer eligible based on patient's age to complete this topicHib vaccineAged OutNo longer eligible based on patient's age to complete this topicMeningococcal (ACWY) vaccineAged OutNo longer eligible based on patient's age to complete this topicMeningococcal B vaccineAged OutNo longer eligible based on patient's age to complete this topicPolio vaccineAged OutNo longer eligible based on patient's age to complete this topic Procedures Procedure NamePriorityDate/TimeAssociated DiagnosisCommentsMAM BRANDON DIGITAL SCREEN ULQHNPDRJVduyemh96/07/2024 Screening mammogram, encounter for WEATHERIZATION ADMINISTRATOR QSQUWPDULpmvyoc85/20/2022 10:13 AM EDT from Last 3 Months or Most Recently Relevant to Health Maintenance Results * TOO BRANDON DIGITAL SCREEN BILATERAL (03/20/2023)Anatomical RegionLaterality ModalityBreastBilateralMammography Narrative Authorizing ProviderResult TypeResult StatusSukasi Barclay APRN - CNMIMG MAMMOGRAPHY ORDERABLESFinal Result * WEATHERIZATION ADMINISTRATOR Cytology (08/30/2021 10:13 AM EDT)ComponentValueRef RangeTest Method Analysis TimePerformed AtPathologist SignatureCytology ReportINTERPRETATION Vaginal material, (ThinPrep vial, Imaging-assisted review): Specimen Adequacy: ? Satisfactory for evaluation. Descriptive Diagnosis: ? Negative for intraepithelial lesion or malignancy. ?? Terrazzo Roller: ?? CLARK Delacruz(ASCP) Electronically Signed Out /09/07/2021 Source: A: Vaginal material, (ThinPrep vial, Imaging-assisted review) Clinical History Hysterectomy Surgery: Salpingostomy; Ovary removal Z12.4 Encounter for screening for malignant neoplasm of cervix GYNECOLOGIC CYTOLOGY REPORT Patient Name: [facility]RIAN [facility] Rec: [id number] Path Number: [id number] [facility] ??LABORATORIES CONSULTING PATHOLOGISTS [facility] ANATOMIC PATHOLOGY [address] [place] [address]. ??[place], [place] [address] [facility] Iterate StudioSpecimen (Source)Anatomical Location / LateralityCollection Method / VolumeCollection TimeReceived Time08/30/2021 10:13 AM EDT08/31/2021 10:13 AM EDT Narrative Authorizing ProviderResult TypeResult StatusSukasi Barclay 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 - CNM PATHOLOGY/CYTOLOGY ORDERABLESFinal ResultPerforming OrganizationAddress City/State/ZIP CodePhone Number [facility] [address] [place] [address] [facility] [employer] [address] [place] [id number], [facility] [phone] from Last 3 Months or Most Recently Relevant to Health Maintenance Insurance Care Teams Team MemberRelationshipSpecialtyStart DateEnd Jnoathan Bean Sr., [address] [place] [address] PCP - GeneralFamily Medicine08/30/21
[2025-01-11 07:18] VITALS: BP 119/74; PULSE 88; TEMP 37.1; O2SAT 97
[2025-01-11 08:13] VITALS: BP 133/80; BP 146/81; PULSE 100; PULSE 104; O2SAT 93; O2SAT 94
[2025-01-11] MEDS: 0.9 % SODIUM CHLORIDE 10 ML SYRINGE - SALINE FLUSH INJ (08:14)
[2025-01-11] MEDS: BUPIVACAINE HCL 0.25% PF 25 MG/10 ML VIAL INJ (08:15)
[2025-01-11] MEDS: LIDOCAINE HCL 2% 400 MG/20 ML MDV INJ (08:15)
[2025-01-11] MEDS: IOHEXOL 240 MG/ML - 10 ML VIAL 24 MG INJ (08:15)
[2025-01-11] MEDS: DEXAMETHASONE SOD PHOS 10 MG/ML VIAL INJ (08:15)
--- NOTE | 2025-01-11 08:18 | P.ON_ITS ---
Date of procedure: 01/11/25 Pre-op diagnosis: Pain due to lumbar stenosis with neurogenic claudication Post-op diagnosis: same as pre-op Procedure: Procedure: Right L3-4, L4-5 transforaminal epidural steroid injection Medications: Bupivacaine 0.25% 2cc, lidocaine 2% 1cc, depomedrol 80mg The patient was seen and examined in the preoperative holding area.? Informed consent was obtained and placed on the chart.? Patient was brought to the medical procedure unit and placed in the prone position where a timeout was completed verifying the correct patient, procedure site, position, and planned special equipment using sterile aseptic technique.? Under direct fluoroscopic visualization a 25-gauge Quincke tipped spinal needle was advanced to the designated neural foramen where contrast dye was injected to show adequate spread.? The needle was inserted at level right L3-4. There was no evidence of vascular or adverse uptake.? Epidural spread was appreciated.? The above- mentioned injectate was then placed in a 1.5 mL aliquot preceded by negative aspiration.? The needle was removed. The needle was inserted and the procedure repeated at level right L4-5.? The surgery site was covered.? Patient was taken to the postprocedural recovery area and monitored for an appropriate length of time before found suitable for discharge in the accompaniment of a responsible adult. Anesthesia: Local Surgeon: Tanya Crowley Pathology: none sent Condition: stable Disposition: no change
== END 2025-01-11 08:24 | disposition home or self-care (01) ==
LOC: SURGOUT 07:09
PROVIDERS: PCP Nurse Practitioner; Visit Provider Anesthesiology
DX: M48.062 Spinal stenosis, lumbar region with neurogenic claudication (principal); M54.50 Low back pain, unspecified; G89.29 Other chronic pain; E11.8 Type 2 diabetes mellitus with unspecified complications; Z79.85 Long-term (current) use of injectable non-insulin antidiabetic drugs; Z79.84 Long term (current) use of oral hypoglycemic drugs
CPT/HCPCS: 64483; 64484; J0665; J1100; Q9966

== ENCOUNTER 2025-01-20 10:54 | Outpatient (OUT) | payer OTHER, MEDICARE, SELFPAY ==
--- OUTSIDE RECORDS SUMMARY | 2025-01-20 11:02 | XMS_ITS | CCD ---
Author Organization [facility] Care Team Providers Care Vp Rheumatology Name Role Phone House DO, Sr Jonathan [...] Unavailable HOUSE, DR BASURTO Primary Care Unavailable MOBILE, DR RYAN Guzman Consulting Unavailable HOUSE, DR [...] HOLM ., DR RICARDO Belcher Admitting Unavailable HOML ., DR RICARDO Belcher Attending Unavailable LAKSHMIPATHY ., BILLY Consulting Nellie vailable HOUSE, DR BASURTO Primary Care Unavailable HOLM ., DR RICARDO Belcher Admitting Unavailable HOLM ., DR RICARDO Belcher Attending Unavailable PIERCE ., CRYS Consulting Unavailable Elle Hendricks Unavailable Maricel HOLLIS, [facility] Primary Care Provider Vidal SALT MAKER, Sonam Unavailable [phone] Ramesh HOLLIS, Jose Primary Care Provider Jose Chandler MD Primary Care Provider Vidal SALT MAKER, Sonam Unavailable Rock HIGGINS, Za Unavailable Sivan Banda DO Unavailable Lui Banks II Attending UnavailLui Alvarado II Admitting Unavailcurtis e NON STAFF Primary Care Unavailable NON STAFF Primary Care Provider UnavailLui Alvarado MD Attending Provider [phone] Rock HIGGINS, Za Unavailable Ameena Vera Primary Care Provider [phone] Ameena Vera Attending Provider Jose Chandler MD Primary Care Provider Rock HIGGINS, Za Unavailable SONAM DRAKE Attending UnavailSONAM Sheffield Attending UnavailALICIA Reese Attending Unavailable ZA WILKERSON Attending Unavailable AMEENA VERA Attending Unavailable KASI BENNETT Attending Unavailable AMEENA VERA Referring Unavailable AMEENA VERA Attending Unavailable KASI BENNETT Attending Unavailable VIDAL, SONAM Attending UnavailSIVAN Cruz Attending Unavailable VIDAL, SONAM Referring Unavailcurtis Vera SALT MAKER-C, Ameena Shah Primary Care Provider Chuy SALT MAKER-C, Ameena Shah Attending Provider Kasi Bennett MD Attending Provider [phone] Keo HOLLIS, Andrius Esposito Attending Unavailable Keo HOLLIS, Andri Vbhargav Attending Unavailable Keo HOLLIS, Andri Vbhargav Attending Unavailable Lui Banks MD Attending Provider Maricel HOLLIS, Barrios Primary Care Provider Jose Chandler MD Primary Care Provider [phone] UnallocatCris rubi MD Provider Primary Care Provi shayna Rock HIGGINS, Za Unavailable [phone] Sivan Banda DO Unavailable Maricel HOLLIS, [facility] Primary Care Provider Medications Current Medications MedicationDrug Class(es)DatesSig (Normalized)Sig (Original)acetaminophen 325 mg / oxyCODONE hydrochloride 5 mg oral tablet (20 sources)Opioid AgonistStart: 02-39-9503ozee 1 tablet by mouth every twenty- four hours as neededoxyCODONE-acetaminophen (Percocet) 5-325 MG tablet Take 1 tablet by mouth Daily as needed 07/01/2024 ActiveStart: 07-20-2022 End: 27-05-7896ueut 1 tablet by mouth once dailyoxyCODONE-acetaminophen (Percocet) 5-325 MG tablet Take 1 tablet by mouth Daily 07/20/2022 12/31/2023 Discontinued (Med list cleanup)Start: 61-04-6582fubo 1 tablet by mouth every six hoursPercocet 10-325 MG 1 tablet as needed Orally every 6 hrs Activetake 1 tablet by mouth once as neededoxyCODONE-acetaminophen (PERCOCET) 10-325 MG per tablet Percocet 10 mg-325 mg tablet Take 1 tablet as needed by oral route. 0 Activealendronic acid 70 mg oral tablet (20 sources)BisphosphonateStart: 36-06-2215dimr 1 tablet by mouth every week Start: 03-09-2024 End: 95-35-0127jhpl 1 tablet by mouth in the morningalendronate [...] tablet 1 08/31/2024 02/15/2025 ActiveStart: 07-04-2023 End: 14-39-4387vfjc 1 tablet by mouth in the morningalendronate (Fosamax) 70 MG tablet Indications: Osteoporosis, unspecified osteoporosis type, unspecified pathological fracture presence (CMS/[facility]) Take 1 tablet (70 mg) by mouth every 7 (seven) days Take in the morning with a full glass of water, on an empty stomach, and do not take anything else bymouth or lie down for the next 30 min. 12 tablet 1 07/04/2023 12/31/2023 Discontinued (Med list cleanup)Start: 64-41-5009qkzk 1 tablet by mouth oncealendronate (FOSAMAX) 70 MG tablet TAKE 1 TABLET BY MOUTH EVERY SATURDAY 0 08/17/2021 ActiveStart: 01-12-2017 End: 43-97-4811ulsk 1 tablet by mouth every weekAlendronate (Fosamax) [...] tablet (20 sources)Xanthine Oxidase InhibitorStart: 07-04-2023 End: 77-86-6171jwjw 1 tablet by mouth once dailytake 1 tablet by mouth every twenty-four hoursAllopurinol 300 MG 1 tablet Orally Once a day ActiveALLOPURINOL PO Take by mouth 0 Activeamoxicillin 875 mg / clavulanate 125 mg oral tablet (4 sources)Penicillin-class AntibacterialStart: 06-11-2024 End: 31-47-6900eakl 1 tablet by mouth in the morningamoxicillin-clavulanate (Augmentin) 875-125 MG tablet Indications: Acute non-recurrent sinusitis ofother sinus Take 1 tablet (875 mg) by mouth in the morning and 1 tablet (875 mg) before bedtime. Doall this for 10 days. Take with food. 20 tablet 06/11/2024 06/21/2024 ActiveStart: 03-03-2024 End: 09-43-9310qwgt 1 tablet by mouth in the morningamoxicillin-clavulanate [...] sources)Platelet Aggregation Inhibitor, Nonsteroidal Anti-inflammatory Drug Start: 50-80-9376yqpqxqxkwkg 200 mg oral capsule (3 sources)Non-narcotic AntitussiveStart: 03-03-2024 End: 94-90-3489mzbv 1 capsule by mouth three times daily as needed for cough benzonatate (Tessalon) 200 MG capsule Indications: Upper respiratory infection with cough and congestion Take 1 capsule (200 mg) by mouth 3 (three) times a day as needed for cough for up to 7 days Donot crush or chew. 20 capsule 03/03/2024 03/10/2024 Activechlorhexidine gluconate 40 mg/ml medicated liquid soap (1 source)Start: 48-97-1410uigrwrxgweuty (Hibiclens) 4 % external liquid Indications: Hidradenitis [...] Activecolchicine 0.6 mg oral tablet (20 sources)Start: 29-00-3308mkfz 1 tablet by mouth every twenty-four hours Start: 05-28-2024 End: 05-84-7482piil 1 tablet by mouth once dailyColchicine 0.6 mg tablet Discontinued 0.6 MG PO Daily May 28, 2024 12:00am November 11, 2024 10:51am Start: 03-03-2024 End: 62-10-0185fsfdfwdzld 0.6 MG tablet Indications: Chronic gout of multiple sites, unspecified cause TAKE 2 TABLETS BY MOUTH AT ONSET OF ACUTE GOUT, MAY TAKE 1 TABLET IN 1 HOURS. NO MORE THAN 3 TABLETS DAILY 15 tablet 1 08/05/2024 ActiveStart: 12-18-2023 End: 88-74-8663bfdxcezwjz 0.6 MG tablet Indications: Gout, unspecified cause, unspecified chronicity, unspecified site TAKE 2 TABLETS BY MOUTH AT ONSET OF ACUTE GOUT, MAY TAKE 1 TABLET IN 1 HOURS. NO MORE THAN 3 TABLETS DAILY 30 tablet 12/18/2023 12/31/2023 Discontinued (Med list cleanup)Start: 03-06-2023 End: 34-89-3873lnifilggcl 0.6 MG tablet Indications: Gout, unspecified cause, unspecified chronicity, unspecified site TAKE 2 TABLETS BY MOUTH AT ONSET OF ACUTE GOUT, MAY TAKE 1 TABLET IN HOUR. NO MORE THAN 3 TABLETS IN ONE DAY 30 tablet 03/06/2023 11/04/2023 Discontinued (Reorder)Start: 05-02-2022 End: 19-21-3917mglihyeuci 0.6 MG tablet Indications: Gout, unspecified cause, unspecified chronicity, unspecified site Take 1 tablet (0.6 mg) by mouth See administration instructions TAKE 2 TABLETS BY MOUTH AT ONSET OF ACUTE GOUT, MAY TAKE 1 TABLET IN HOUR. NO MORE THAN 3 TABLETS IN ONE DAY 30 tablet 11/04/2023 DiscontinuedContinuous Glucose Lining Mechanic (Dexcom G7 Lining Mechanic) device (20 sources)Start: 48-71-0327Xcoufdcswu Glucose Lining Mechanic (Dexcom G7 Lining Mechanic) device Indications: Type 2 diabetes mellitus with diabetic microalbuminuria, without long-term current use of insulin (HCC) 1 each continuously 1 each 03/03/2024 ActiveStart: 06-79-2533Agsveohojh Glucose Lining Mechanic (Dexcom G7 Lining Mechanic) device Indications: Type 2 diabetes mellitus with diabetic microalbuminuria, without long-term current use of insulin ([facility]/HCC) 1 each continuously 1 each 03/03/2024 ActiveContinuous Glucose Sensor (Dexcom G7 Sensor) misc (20 sources)Start: 08-05-2024 End: 13-50-5550Vhvyemrzms Glucose Sensor (Dexcom G7 Sensor) [facility] [place] Indications: Type 2 diabetes mellitus with diabetic microalbuminuria, without long-term current use of insulin ([facility]) 1 each continuously 3 each 11 08/05/2024 09/04/2024 ActiveStart: 03-30-2024 End: 44-38-8754Rdjhtfbxon Glucose Sensor (Dexcom G7 Sensor) misc Indications: Type 2 diabetes mellitus with diabetic microalbuminuria, without long-term current use of insulin (HCC) 1 each continuously 3 each 11 03/30/2024 08/05/2024 Discontinued (Reorder)Start: 09-42-1188Ehwnjfstkz Glucose Sensor (Dexcom G7 Sensor) [facility] Indications: Type 2 diabetes mellitus with diabetic microalbuminuria, without long-term current use of insulin ([facility]) 1 each continuously 3 each 11 03/30/2024 ActiveStart: 57-44-3424Vzgfmmsidz Glucose Sensor (Dexcom G7 Sensor) misc Indications: Type 2 diabetes mellitus with diabetic microalbuminuria, without long-term current use of insulin ([facility]/HCC) 1 each continuously 3 each 11 03/30/2024 ActiveStart: 03-03-2024 End: 85-19-3751Mhlujhsqwk Glucose Sensor (Dexcom G7 Sensor) [facility] [place] Indications: Type 2 diabetes mellitus with diabetic microalbuminuria, without long-term current use of insulin ([facility]/HCC) 1 each continuously 3 each 11 03/03/2024 03/30/2024 Discontinued (Reorder)Start: 38-90-7881Ciezpnkjxx Glucose Sensor (Dexcom G7 Sensor) [facility] [place] Indications: Type 2 diabetes mellitus with diabetic microalbuminuria, without long-term current use of insulin ([facility]) 1 each continuously 3 each 03/03/2024 Activediclofenac sodium 75 mg delayed release oral tablet (20 sources)Nonsteroidal Anti-inflammatory DrugStart: 07-04-2023 End: 89-00-9852rabs 1 tablet by mouth once in the [...] tablet 1 07/04/2023 12/31/2023 ExpiredStart: 08-07-2021 End: 32-64-2577erwo 1 tablet by mouth twice dailyVoltaren Activefamotidine 20 mg oral tablet (20 sources)Histamine-2 Receptor AntagonistStart: 08-20-2024 End: 27-17-8036yymu 1 tablet by mouth twice dailyStart: 05-19-2024 End: 62-40-9926clav 1 tablet by mouth once dailyFamotidine (Pepcid) 20 mg tablet Discontinued 20 MG PO Daily May 28, 2024 12:00am October 19, 2024 7:56am Start: 03-16-2024 End: 05-64-8582gsqj 1 tablet by mouth in the morningfamotidine (Pepcid) 20 MG tablet Indications: Gastroesophageal reflux disease without esophagitis Take 1 tablet (20 mg) by mouth in the morning and 1 tablet (20 mg) before bedtime. 180 tablet 1 05/19/2024 08/17/2024 ActiveStart: 07-04-2023 End: 22-41-2709fbug 1 tablet by mouth once dailyfamotidine (Pepcid) 20 MG tablet Indications: Gastroesophageal reflux disease without esophagitis Take 1 tablet (20 mg) by mouth Daily 90 tablet 1 07/04/2023 03/16/2024 DiscontinuedStart: 45-14-3686pfog 1 tablet by mouth once dailyfamotidine (PEPCID) 20 MG tablet TAKE 1 TABLET BY MOUTH EVERY DAY 0 08/16/2021 Activefluticasone propionate 0.05 mg/actuat metered dose nasal spray (20 sources)CorticosteroidStart: 03-03-2024 End: 33-16-3123fzea 1-2 spray(s) nasal route once dailyfluticasone (Flonase) 50 MCG/ACT nasal spray Indications: Upper respiratory infection with cough and congestion Administer 1-2 sprays into each nostril Daily Shake gently. Before first use, prime pump. After use, clean tip and replace cap. 16 g 2 03/03/2024 08/20/2024 Discontinued (Therapy completed)furosemide 20 mg oral tablet (20 sources)Loop DiureticStart: 08-05-2023 End: 06-17-9571txok 1 tablet by mouth once daily as neededglimepiride 1 mg oral tablet (10 sources)SulfonylureaStart: 09-03-2023 End: 40-03-1739gnuo 1 tablet by mouth once dailyglimepiride (Amaryl) 1 MG tablet 1 mg 1/2 po every day 09/03/2023 03/03/2024 DiscontinuedStart: 20-44-6957yojt 0.5 tablet by mouth once daily in the morningglimepiride (AMARYL) 1 MG tablet TAKE 1/2 TABLET BY MOUTH EVERY MORNING 0 06/05/2021 ActivehydroCHLOROthiazide 25 mg oral tablet (7 sources)Thiazide DiureticStart: 37-90-3305wles 1 tablet by mouth once daily hydroCHLOROthiazide (HYDRODIURIL) 25 MG tablet TAKE 1 TABLET BY MOUTH EVERY DAY 0 08/16/2021 ActiveStart: 01-12-2017 End: 11-10-0358wbgm 1 tablet by mouth once dailyHydrochlorothiazide 25 mg Tablet Discontinued 25 MG PO Daily January 12, 2017 1:00am January 15, 2017 2:23pm methocarbamol 750 mg oral tablet (6 sources)Muscle RelaxantStart: 38-88-8249kibt 1 tablet by mouth once daily at bedtimemethocarbamol (ROBAXIN) 750 MG tablet TAKE 1 TABLET BY MOUTH EVERY NIGHT AT BEDTIME 0 08/15/2021 ActiveStart: 01-12-2017 End: 13-28-1259nxoo 1 tablet by mouth at bedtime as [...] mg oral tablet (5 sources)Start: 03-03-2024 End: 57-51-3668odmp 1 tablet by mouth once dailypredniSONE (Deltasone) 20 MG tablet Indications: Upper respiratory infection with cough and congestion Take 1 tablet (20 mg) by mouth Daily for 5 days 5 tablet 03/03/2024 03/08/2024 Active Start: 08-18-2023 End: 45-07-4284rjcw 1 tablet by mouth once dailypredniSONE (Deltasone) [...] tablet (20 sources)HMG-CoA Reductase InhibitorStart: 07-04-2023 End: 44-34-4079rpvg 1 tablet by mouth once dailytake 1 tablet by mouth every twenty-four hoursCrestor 20 MG 1 tablet Orally Once a day ActiveSemaglutide (3 sources)Start: 06-38-3169zzeyxg 2 mg by subcutaneous injection every week Start: 07-40-0532gddtnq 2 mg by subcutaneous injection every weekSemaglutide (Ozempic) 2 mg/dose (8 mg/3 mL) pen injector Active 2 MG SUBCUT every week May 28, 2024 12:00am Complies with drug therapySemaglutide (Ozempic) 2 mg/dose (8 mg/3 mL) pen injector (1 source)Start: 62-49-8999loqhhv 2 mg by subcutaneous injection every week Semaglutide (Ozempic) 2 mg/dose (8 mg/3 mL) pen injector Active 2 MG SUBCUT every week May 28, 2024 12:00amSemaglutide, 2 MG/DOSE, (Ozempic, 2 MG/DOSE,) 8 MG/3ML solution pen-injector (20 sources)Start: 07-75-9624Hfzrxaagvix, 2 MG/DOSE, (Ozempic, 2 MG/DOSE,) 8 MG/3ML solution pen-injector Indications: Type 2 diabetes mellitus with diabetic microalbuminuria, without long-term current use of insulin (HCC) Inject 2 mg under the skin every 7 (seven) days 9 mL 1 05/19/2024 ActiveStart: 05-19-2024 End: 90-72-0961Omjlnczphte, 2 MG/DOSE, (Ozempic, 2 MG/DOSE,) 8 MG/3ML solution pen-injector Indications: Type 2 diabetes mellitus with diabetic microalbuminuria, without long-term current use of insulin (HCC) Inject 2 mg under the skin every 7 (seven) days 9 mL 1 05/19/2024 08/11/2024 ActiveStart: 05-19-2024 End: 94-42-4099Phqhsvlafgu, 2 MG/DOSE, (Ozempic, 2 MG/DOSE,) 8 MG/3ML solution pen-injector Indications: Type 2 diabetes mellitus with diabetic microalbuminuria, without long-term current use of insulin (CMS/HCC) Inject 2 mg under the skin every 7 (seven) days 9 mL 1 05/19/2024 08/11/2024 ActivetraZODone hydrochloride 50 mg oral tablet (1 source)Serotonin Reuptake InhibitorStart: 70-45-4884owui 1 tablet by mouth once daily at bedtimetraZODone (DESYREL) 50 MG tablet TAKE 1 TABLET BY MOUTH EVERY NIGHT AT BEDTIME 0 08/17/2021 Activedivalproex sodium 500 mg delayed release oral tablet (20 sources)Mood Stabilizer, Anti-epileptic AgentStart: 07-04-2023 End: 53-72-1333smpj 1 tablet by mouth in the morningdivalproex (Depakote) 500 MG EC tablet Indications: Migraine with aura and without status migrainosus, not intractable Take 1 tablet (500 mg) by mouth in the morning and 1 tablet (500 mg) before bedtime. Do not crush, chew, or split. 180 tablet 1 08/31/2024 02/27/2025 ActiveStart: 47-08-9251lyhm 1 tablet by mouth twice dailytake 1 tablet by mouth every twelve hoursDepakote 500 mg 1 tablet Orally twice a day ActiveVitamin C 500 MG (2 sources)Vitamin C 500 MG Orally Active Completed/Discontinued Medications MedicationDrug Class(es)DatesSig (Normalized)Sig (Original)ascorbic acid 100 mg oral tablet (9 sources)Vitamin CStart: 01-12-2017 End: 66-41-0388txmr 5 tablets by mouth once dailyAscorbic Acid [...] tablet (20 sources)gamma-Aminobutyric Acid-ergic AgonistStart: 10-19-2024 End: 16-24-2896zfzj 1 tablet by mouth every twelve hours as needed for muscle spasmsBaclofen 20 mg tablet Discontinued 20 MG PO Every 12 hours as needed for spasms October 191:56am October 19, 2024 12:12pm Spasm of back muscles Muscle spasm of backStart: 10-19-2024 End: 62-43-1914tjyh 1 tablet by mouth twice daily as needed for muscle spasms Start: 05-28-2024 End: 78-45-3173yhtu 1 tablet by mouth twice dailyBaclofen 20 mg tablet Discontinued 20 MG PO Twice daily May 28, 2024 12:00am October 19, 2024 7:56amStart: 08-22-2023 End: 06-37-9666xqog 1 tablet by mouth three times daily [...] topical lotion (13 sources)Lincosamide AntibacterialStart: 02-25-2023 End: 11-53-6452semfvejmyxz (Cleocin T) 1 % lotion Indications: Hidradenitis suppurativa Apply thin later to affected areas on the body every day during flares, 30 day supply 60 mL 02/25/2023 12/31/2023 Discontinued (Med list cleanup)eletriptan 40 mg oral tablet (11 sources)Serotonin-1b and Serotonin-1d Receptor AgonistStart: 01-12-2017 End: 30-52-5351Zmarwqyhge (Relpax) 40 mg Tablet Discontinued 40 MG PO as needed for Migraine Headache January 12, 2017 1:00am May 28, 2024 1:17pmtake 1 tablet by mouth every twenty-four hoursRelpax 40 MG 1 tablet as needed one time Orally Once a day Activeindomethacin 50 mg oral capsule (5 sources)Nonsteroidal Anti-inflammatory DrugStart: 01-12-2017 End: 46-45-7229cskf 1 capsule by mouth twice dailyIndomethacin 50 mg Capsule Discontinued 50 MG PO Twice daily January 12, 2017 1:00am January 15, 2017 2:23pm goutlactobacillus acidophilus 1.5 mg oral capsule (5 sources)Start: 01-12-2017 End: 40-20-4052Ypyapbvsqsfkl Acidophilus (Probiotic Acidophilus) 1.5 mg (250 million cell) Capsule Discontinued PODaily January 12, 2017 1:00am January 15, 2017 2:23pmlansoprazole 30 mg delayed release oral capsule (5 sources)Proton Pump InhibitorStart: 01-12-2017 End: 55-06-0757zhxz 1 capsule by mouth once dailyLansoprazole 30 mg Capsule,Delayed Release(Dr/Ec) Discontinued 30 MG PO Daily January 12, 2017 1:00am October 19, 2024 7:54ammetFORMIN hydrochloride 500 mg oral tablet (20 sources)BiguanideStart: 56-85-2755adwOUGRIJ (GLUCOPHAGE) 500 MG tablet 1,000 mg in the morning and 1,000 mg in the evening. Take withmeals. 0 08/07/2021 ActiveStart: 01-12-2017 End: 55-31-9887oyvy 1 tablet by mouth twice dailyMetformin 500 [...] not crush, chew, or split. 0 Active Sdqaifiqctvc-Rw-Jeqa-Minerals (Multiple Vitamin, Womens) Tablet (5 sources)Start: 01-12-2017 End: 14-60-8500Bbdzpbytokad-Ea-Ykfd-Tgxynelg (Multiple Vitamin, Womens) Tablet Discontinued PO Daily January 1:00am January 15, 2017 2:23pm pregabalin 75 mg oral capsule (20 sources)Start: 10-19-2024 End: 95-66-6767yyko 2 capsules by mouth once daily at bedtimePregabalin 75 mg capsule Discontinued 150 MG PO Daily at bedtime October 19, 2024 11:58am October 19, 2024 12:14pmStart: 09-24-2024 End: 98-64-0135qcbj 1 capsule by mouth three times dailyPregabalin 75 mg capsule Discontinued 75 MG PO Three times daily October 19, 2024 7:56am October 19, 2024 12:05pmStart: 09-05-2023 End: 47-80-0731qafj 1 capsule by mouth twice dailyPregabalin 75 mg capsule Discontinued 75 MG PO Twice daily October 19, 2024 12:13pm October 19, 2024 12:23pmStart: 03-21-2023 End: 52-73-1676duvk 1 capsule by mouth in the morning, [...] capsule 0 03/21/2023 06/19/2023 ActiveStart: 01-12-2017 End: 71-15-3497lipo 1 capsule by mouth once dailyPregabalin 50 mg capsule Discontinued 50 MG PO Daily January 12, 2017 1:00am May 28, 2024 1:24pm back painStart: 01-12-2017 End: 05-50-3873bsia 2 capsules by mouth at bedtimePregabalin 50 mg capsule Discontinued 100 MG PO Bedtime January 12, 2017 1:00am May 28, 2024 1:23pm back painStart: 18-85-4982wdym 100 mg by mouth at bedtimePregabalin Active 100 MG PO Bedtime January 12, 2017 1:00am End: 40-05-0757rnpw 1 capsule by mouth every eight hoursLyrica 50 MG 1 capsule Orally Three times a day Activetake 1 capsule by mouth twice dailypregabalin (LYRICA) 50 MG capsule Lyrica 50 mg capsule Take 1 capsule twice a day by oral route. 0 Activerizatriptan 10 mg oral tablet (20 sources)Serotonin-1b and Serotonin-1d Receptor AgonistStart: 05-28-2024 End: 94-65-5260ejrh 1 tablet by mouth every two hoursRizatriptan (Maxalt) 10 mg tablet Discontinued 0 PO .COMPLEX May 28, 2024 12:00am November 1:17pm take 1 tab at onset of headache; if no relief may repeat 1 tab after at least 2 hrs; max = 3 tabs/24 hr POStart: 05-21-2023 End: 12-73-6075cynnvxseyxh (Maxalt) 10 MG tablet Indications: Migraine with aura and without status migrainosus, not intractable Take 1 tablet (10 mg) by mouth 1 (one) time if needed for migraine May repeat in 2 hours if unresolved. Do not exceed 30 mg in 24 hours. 9 tablet 12/17/2023 Active1 mg dose 1.5 ml semaglutide 1.34 mg/ml pen injector (12 sources)Start: 03-30-2024 End: 07-44-9166psahbi 2 mg by subcutaneous injection every weeksemaglutide (Ozempic) 2 MG/1.5ML solution pen-injector Indications: Type 2 diabetes mellitus with diabetic microalbuminuria, without long-term current use of insulin (CMS/HCC) Inject 2 mg under the skin 1 (one) time per week 2 each 5 03/30/2024 05/19/2024 Discontinued (Therapy completed)semaglutide (Ozempic, 1 MG/DOSE,) 4 MG/3ML solution pen-injector (15 sources)Start: 10-03-2023 End: 94-18-0261lcckkz 1 mg by subcutaneous injection every weeksemaglutide (Ozempic, 1 MG/DOSE,) 4 MG/3ML solution pen-injector Indications: Type 2 diabetes mellitus without complication, without long-term current use of insulin (CMS/HCC) Inject 1 mg under the skin 1 (one) time per week 9 mL 1 10/03/2023 12/31/2023 Discontinued (Med list cleanup)Start: 10-03-2023 End: 85-81-2706cwngtf 1 mg by subcutaneous injection every weeksemaglutide (Ozempic, 1 MG/DOSE,) 4 MG/3ML solution pen-injector Indications: Type 2 diabetes mellitus without complication, without long-term current use of insulin (CMS/HCC) Inject 1 mg under the skin 1 (one) time per week 9 mL 1 10/03/2023 01/01/2024 ActiveStart: 07-04-2023 End: 48-64-4693ohczpk 1 mg by subcutaneous injection every weeksemaglutide (Ozempic, 1 MG/DOSE,) 4 MG/3ML solution pen-injector Indications: Type 2 diabetes mellitus without complication, without long-term current use of insulin (CMS/HCC) Inject 1 mg under the skin 1 (one) time per week 9 mL 1 07/04/2023 10/03/2023 Discontinued (Reorder)Start: 86-21-7298qonzcm 1 mg by subcutaneous injection every weeksemaglutide (Ozempic, 1 MG/DOSE,) 4 MG/3ML solution pen- injector Indications: Type 2 diabetes mellitus without complication, without long-term current use of insulin (CMS/HCC) Inject 1 mg under the skin 1 (one) time per week 9 mL 1 07/04/2023 ActiveStart: 01-29-2023 End: 86-32-5852uglvrc 1 mg by subcutaneous injection every weeksemaglutide (Ozempic, 1 MG/DOSE,) 4 MG/3ML solution pen-injector Indications: Type 2 diabetes mellitus without complication, without long-term current use of insulin (CMS/HCC) Inject 1 mg under the skin 1 (one) time per week 9 mL 0 01/29/2023 04/29/2023 Activetriamcinolone acetonide 40 mg/ml injectable suspension (3 sources)CorticosteroidStart: 02-72-4393Yotqvrr-40 Mar, 20 mgStart: 24-63-7646Puwhjfu-40 Jan, 30 mg Problems Active Problems Problem ClassificationProblemDateDocumented DateEpisodic/ChronicAcute and unspecified renal failure (5 sources)Acute renal failure syndrome; Translations: [Acute kidney failure, unspecified]30-82-6406MytepnheThdgafr on above:Problem List clean-up per request of Phys. EHR CmteDiabetes mellitus with complications (20 sources)Polyneuropathy due to type 2 diabetes mellitus; Translations: [Type 2 diabetes mellitus with diabetic polyneuropathy]Onset: [id number] ChronicDiabetes mellitus without complication (13 sources)Type 2 diabetes mellitus without complications; Translations: [Type 2 diabetes mellitus without complication]Onset: 80-80-5370EwnxfzkXmqlbbmxt of lipid metabolism (20 sources)Hyperlipidemia; Translations: [Other hyperlipidemia]Onset: [id number] disorders (8 sources)Gastroesophageal reflux disease without esophagitis; Translations: [Gastro-esophageal reflux disease without esophagitis]48-25-3941EkinzlsPlyihfoco hypertension (20 sources)Essential (primary) hypertension; Translations: [Hypertensive disorder]Onset: 092952-93-5739XxflqqgIcxpnnymqbaoh symptoms and ill- defined conditions (20 sources)Incontinence; Translations: [Mixed incontinence]Onset: 10-03-2023 80-72-7669ZdvjzktZcil and other crystal arthropathies (20 sources)Gout; Translations: [Gout, unspecified]Onset: 36-39-4646Vmqikkn Headache; including migraine (20 sources)Migraine with aura; Translations: [Migraine with aura, not intractable, without status migrainosus]Onset: 648431-06-9861Icnvocf Miscellaneous mental health disorders (4 sources)Primary insomnia; Translations: [Primary insomnia]39-36-2041Rarmzqd Nutritional deficiencies (4 sources)Vitamin D deficiency; Translations: [Vitamin D deficiency, unspecified]68-22-6387JcaxceeRwlxihunieyynn (17 sources)Bilateral primary osteoarthritis of knee; Translations: [Arthritis of first carpometacarpal joint of left hand]Onset: 06-86-9593HqpwhvmOfivvxdaxgvk (2 sources)Osteoporosis; Translations: [Age-related osteoporosis without current pathological fracture]56-45-1239PvipfosQqvfh congenital anomalies (2 sources)Non-neoplastic nevus; Translations: [Congenital non-neoplastic nevus] 51-61-6756BgzusmhHijdw connective tissue disease (2 sources)Pain in left handEpisodicOther connective tissue disease (1 source)Personal history of other diseases of the musculoskeletal system and connective tissueEpisodicOther endocrine disorders (1 source)Hormone level - mvlyekz75-45-6179PzhnnvsdJaqfr hereditary and degenerative nervous system conditions (5 sources)Restless legs; Translations: [Restless legs syndrome]01-23-2023 ChronicComment on above:Problem List clean-up per request of Phys. EHR CmteOther nervous system disorders (1 source)Other chronic pain; Translations: [OTHER CHRONIC PAIN]Onset: 81-79-8948IvigimbLehig nervous system disorders (5 sources)Numbness of face; Translations: [Anesthesia of skin]01-23-2023 EpisodicComment on above:Problem List clean-up per request of Phys. EHR Cmte Other non-traumatic joint disorders (4 sources)Pain in right wristEpisodicOther non-traumatic joint disorders (4 sources)Pain of left wrist; Translations: [Pain in left wrist]11-23-2024 EpisodicOther nutritional; endocrine; and metabolic disorders (20 sources)Hypercalcemia; Translations: [Hypercalcemia]Onset: 05-19-2024 95-63-1437UzlaivkKyectov on above:Problem List clean-up per request of Phys. EHR CmteOther nutritional; endocrine; and metabolic disorders (20 sources)Obesity caused by energy imbalance; Translations: [Morbid (severe) obesity due to excess calories]Onset: 821305-47-7322YnbpxcsBzers nutritional; endocrine; and metabolic disorders (20 sources)Body mass index 40+ - severely obese; Translations: [Body mass index (BMI) 40.0-44.9, adult]Onset: 406514-37-5486TayrqqiKhzfh nutritional; endocrine; and metabolic disorders (20 sources)Body mass index 30+ - obesity; Translations: [Body mass index (BMI) 39.0-39.9, adult]Onset: 759601-82-4522EszwhxhZggdy nutritional; endocrine; and metabolic disorders (7 sources)Morbid obesity; Translations: [Morbid (severe) obesity due to excess calories]30-81-9333YhitxmnWzeov nutritional; endocrine; and metabolic disorders (2 sources)Hypomagnesemia; Translations: [Hypomagnesemia]47-21-2505XvaruoeIalcb skin disorders (2 sources)Lentiginosis; Translations: [Other melanin hyperpigmentation] 26-47-5022KyvvextzOgssm skin disorders (2 sources)Hidradenitis suppurativa; Translations: [Hidradenitis suppurativa] 91-88-8106CnsktgfeWdnubhlm codes; unclassified (20 sources)Obstructive sleep apnea syndrome; Translations: [Obstructive sleep apnea (adult) (pediatric)]Onset: 046798-39-7299XxwfpowXorlmydb codes; unclassified (4 sources)Hypersomnia; Translations: [Hypersomnia, unspecified]12-31-2023 ChronicResidual codes; unclassified (4 sources)Tobacco user; Translations: [Tobacco use]09-25-0358Sxctftla Spondylosis; intervertebral disc disorders; other back problems (11 sources)Spondylosis without myelopathy or radiculopathy, lumbar region; Translations: [Spondylosis without myelopathy or radiculopathy, lumbosacral region]Onset: 03-74-5136PigxtrtYmdeweolo-related disorders (20 sources)Tobacco dependence caused by cigarettes; Translations: [Nicotine dependence, cigarettes, uncomplicated]Onset: hronic Unclassified (4 sources)LOW BACK PAIN, UNSPECIFIED; Translations: [LOW BACK PAIN, UNSPECIFIED]Onset: 06-23-2021 Past or Other Problems Problem ClassificationProblemDateDocumented DateEpisodic/ChronicFracture of lower limb (20 sources)Metatarsal bone fracture; Translations: [Fracture of unspecified metatarsal bone(s), unspecified foot, initial encounter for closed fracture] Onset: 472210-63-0273PjwstopkWobcwrmrlnouj symptoms and ill-defined conditions (20 sources)Increased frequency of urination; Translations: [Frequency of micturition]Onset: 943644-61-1147JxrqlnpwZhxaw aftercare (20 sources)Post-discharge follow-up; Translations: [Encounter for follow-up examination after completed treatment for conditions other than malignant neoplasm]Onset: 07-04-2023 Resolved: 918698-91-5228EkhvffavRguua and unspecified benign neoplasm (20 sources)Melanocytic nevus of trunk; Translations: [Melanocytic nevi of trunk]Onset: 431443-30-2330PwcwgwucOrwcw connective tissue disease (4 sources)Other muscle spasm; Translations: [OTHER MUSCLE SPASM]Onset: 51-12-6923BepiurbvAiroa connective tissue disease (4 sources)Pain in right foot; Translations: [PAIN IN RIGHT FOOT]Onset: 09-02-0532RwcvqaioJpboy injuries and conditions due to external causes (4 sources)Unspecified injury of right wrist, hand and finger(s), initial encounter; Translations: [UNS INJ RTWRIST HAND FINGERS INIT]Onset: 11-16-2021 EpisodicOther lower respiratory disease (20 sources)Snoring; Translations: [Snoring]Onset: 653081-78-7331Yawgqilp Other non-epithelial cancer of skin (20 sources)Basal cell carcinoma of nose; Translations: [Basal cell carcinoma of skin of nose]Onset: 778398-70-5391DbixmlkjWgqsh non-traumatic joint disorders (4 sources)Pain in left knee; Translations: [PAIN IN LEFT KNEE]Onset: 02-16-2022 EpisodicOther non-traumatic joint disorders (20 sources)Pain in right knee; Translations: [Pain in joint, lower leg]Onset: 032987-71-4193UjimpkpiOzgmk nutritional; endocrine; and metabolic disorders (20 sources)Hyperuricemia; Translations: [Hyperuricemia without signs of inflammatory arthritis and tophaceous disease]Onset: 05-19-2024 Resolved: 799409-44-3348KkkwkbetOeuhf screening for suspected conditions (not mental disorders or infectious disease) (20 sources)Patient encounter status; Translations: [Encounter for screening for malignant neoplasm of cervix]Onset: 84-86-4951SyqngvkkSyryk upper respiratory infections (20 sources)Acute upper respiratory infection; Translations: [Acute upper respiratory infection, unspecified]Onset: 01-29-2023 Resolved: 245618-91-4733TwnvhtnoJscocxxp codes; unclassified (20 sources)Bilateral lower limb edema; Translations: [Localized edema]Onset: 293728-23-6995UehaelxaUyymffwdyjg; intervertebral disc disorders; other back problems (20 sources)Muscle spasm of back; Translations: [Sacrococcygeal disorders, not elsewhere classified]Onset: 408866-68-3133RnziklyuKzzrkdtnivbg (1 source)LOW BACK PAIN, UNSPECIFIED; Translations: [LOW BACK PAIN, UNSPECIFIED] Onset: 20-60-5543Apntcgetzqik (2 sources)Acute pain of right ymtp53-77-9509 Results Test NameValueInterpretationReference RangeFacilityLaboratory - Chemistry and Chemistry - challengeOrdered By: Ameena Vera on 43-56-6965Jsylc [Mass/Vol]3.9 mg/dL2.6-6.0[facility] HospitalLaboratory - Hematology and Cell countsOrdered By: Ameena Vera on 98-80-6049RMO (Bld) [Velocity]31 mm/hHigh<=30 [facility] HospitalHbA1c HPLC (Bld) [Mass fraction]Ordered By: Ameena Vera on 23-00-0557SqP9f (Bld) [Mass fraction]6.5 %[facility] HospitalGlomerular filtration rate (GFR) estimation in non- AmericanOrdered By: Kasi Bennett on 49-02-9185LMV/1.73 sq M.predicted among non-blacks MDRD (S/P/Bld) [Vol rate/Area]mL/min/{1.73_m2}>=60 mL/min/1.73m 2 [facility] HospitalLaboratory - Chemistry and Chemistry - challengeOrdered By: Kasi Bennett on 35-98-0605Qbnwapi [Mass/Vol]2.9 g/dLLow 3.4-5.0[facility] HospitalCalcium [Mass/Vol]8.7 mg/dL8.7-10.3 [facility] HospitalChloride [Moles/Vol]106 mmol/S08-024ZfezvosayWooster Community HospitalCO2 [Moles/Vol]27.8 mmol/L21.0-32.0[facility] HospitalCreatinine [Mass/Vol]0.87 mg/dL0.55-1.02[facility] HospitalGFR/1.73 sq M.predicted MDRD (S/P/Bld) [Vol rate/Area]mL/min/{1.73_m2} >=60 mL/min/1.73m 2FTriHealth Bethesda North HospitalGlucose [Mass/Vol]103 mg/dL 74-106[facility] HospitalMagnesium [Mass/Vol]1.4 mg/dLLow1.8-2.4 [facility] HospitalPotassium [Moles/Vol]4.4 mmol/L3.5-5.1FMercy Health St. Elizabeth [facility] Hospitalodium [Moles/Vol]142 mmol/J077-133GzlvjdkujWooster Community HospitalUrea nitrogen [Mass/Vol]22.0 mg/dLHigh7.0-18.0[facility] HospitalUrea nitrogen/Creatinine [Mass ratio]25.3 mg/mgWooster Community HospitalNo Panel InformationOrdered By: Kasi Bennett on - Hydroxy Vitamin D Total80.4 ng/mLWooster Community HospitalComment on above:<20 ng/mL Vit D bijjfqikh64-<30 ng/mL Vit D gieucekoxlxo36-677 ng/mL Vit D sufficient>100 ng/mL Potential ToxicityMiscellaneous Test CommentComment. [facility] HospitalComment on above:Interpretation Intact PTH Calcium (pg/mL) (mg/dL)Normal 15 - 65 8.6 - 10.2Primary Hyperparathyroidism >65 >10.2Secondary Hyperparathyroidism >65 <10.2Non-Parathyroid Hypercalcemia <65 & gt;10.2Hypoparathyroidism <15 < 8.6Non-Parathyroid Hypocalcemia 15 - 65 < 8.6Performed at:[facility] [id number] Director: Berto Gay PhD, Phone: [phone] Hormone (Intact)30 pg/yX94-17XksxaulktWooster Community HospitalPhosphorus Level3.4 mg/dL2.6-4.7 [facility] Hospitalerum or plasma anion gap determinationOrdered By: Kasi Bennett on 01-44-8854Ubcsh gap [Moles/Vol]12.6 mmol/LFTriHealth Bethesda North HospitalHbA1c (Bld) [Mass fraction]on 66-97-9575Qkjnwwvfferfkd and review of laboratory resultsAbnormalNOPhelps HealthNONH HealthcareLaboratory - Hematology and Cell countson 11-04-5538IpB1k (Bld) [Mass fraction]6.4 %[facility] HealthcareALL BASIC METABOLIC PANELon 02-30-5683Ahenn gap [Moles/Vol]11.6 mmol/L [facility] HealthcareCalcium [Mass/Vol]9.3 mg/dL8.5 - 10.1 mg/dLNOPhelps Health Chloride [Moles/Vol]103 mmol/L98 - 107 mmol/LNOMS HealthcareCO2 [Moles/Vol]33 mmol/LHigh21.0 - 32.0 mmol/LNOMS HealthcareCreatinine [Mass/Vol]0.86 mg/dL0.55 - 1.02 mg/dLNOMS HealthcareGFR/1.73 sq M.predicted CKD-EPI (S/P/Bld) [Vol rate/Area]>60>=60 mL/min/1.73m 2NOMS HealthcareGlucose [Mass/Vol]107 mg/hCYgzi27 - 106 mg/dLNOMS HealthcareInterpretation and review of laboratory results AbnormalNOMS HealthcarePotassium [Moles/Vol]4.6 mmol/L3.5 - 5.1 mmol/LNOMS HealthcareSodium [Moles/Vol]143 mmol/L136 - 145 mmol/LNOMS HealthcareTBH EGFR- NON AF MONTSERRATIAN>60>=60 mL/min/1.73m 2NOMS HealthcareUrea nitrogen [Mass/Vol]20 mg/dLHigh7.0 - 18.0 mg/dLNOMS HealthcareUrea nitrogen/Creatinine [Mass ratio] 23.3 mg/mgNOMS HealthcareCLINISYNCNOMS HealthcareX-ray reportOrdered By: Moustapha Penny on 72-26-0693Qaorg reportFAIRFIELD MEDICAL CENTER [facility] [address] [place] [address] XRay Report Signed Patient: Karina De Oliveira MR#: [id number] : 1965 Acct:[id number] Age/Sex: 58 / F ADM Date: 5 Loc: [facility] Room: Type: [facility] Attending Dr: Lui Banks II, MD Copies to: Lui Banks MD~ Ordering Provider: Lui Banks MD Date of Service: 05/28/24 XR/XR knee RT 4V*: M25.561 - Pain in right knee ([id number]) XR/XR pelvis 1-2V: M25.561 - Pain in [...] DO 05/28/24 1523 Signed By: 05/28/24 1524 [facility] HospitalXR knee RT 4V*on 95-93-9393VW knee RT 4V* [facility] [address] [place] [address] XRay Report Signed Patient: Karina De Oliveira MR#: [id number] : 1965 Acct:[id number] Age/Sex: 58 / F ADM Date: 05/28/24 Loc: [facility] Room: Type: [facility] Attending Dr: Lui Banks II, MD Copies to: Lui Banks MD Ordering Provider: Lui Banks MD Date of Service: 05/28/24 XR/XR knee RT 4V*: M25.561 - Pain in right knee ([id number]) XR/XR pelvis 1-2V: M25.561 - Pain in [...] Jr, DO 05/28/24 1523 Signed By: 05/28/[address] [place] [address] Physician GroupALL CBC WITH AUTO DIFFon 40-44-6545PTKMXFMUR ABSOLUTE AUTO0.1NOMS HealthcareBasophils/100 WBC (Bld)0.5 % 0.2 - 2.0 %NOMS [facility] HospitalEosinophils/100 WBC (Bld)4 %0.9 - 7.0 %[facility] Erythrocyte distribution width (RBC) [Ratio]14.6 %11.0 - 15.0 %NOMRipley County Memorial Hospital Hematocrit (Bld) [Volume fraction]41.6 %36.0 - 48.0 %NOMRipley County Memorial HospitalHemoglobin (Bld) [Mass/Vol]14.1 g/dL12.0 - 16.0 g/dLNOPhelps HealthIMMATURE GRANULOCYTES ABS AUTO0.07HighNONH HealthcareImmature granulocytes/100 WBC (Bld)0.6 %High0.0 - 0.5 %[facility] HospitalInterpretation and review of laboratory resultsAbnormalNONH HealthcareLYMPHOCYTES ABSOLUTE AUTO3.6NOMS HealthcareLymphocytes/100 WBC (Bld) 32.6 %20.5 - 60.0 %[facility] HospitalMCH (RBC) [Entitic mass]32.3 pg26.7 - 34.0 pg [facility] HospitalMCHC (RBC) [Mass/Vol]33.9 g/dL29.9 - 35.2 g/dLNOPhelps HealthMCV (RBC) [Entitic vol]95.2 fL81.0 - 99.0 fLNOPhelps HealthMONOCYTES ABSOLUTE AUTO 0.8NOMS HealthcareMonocytes/100 WBC (Bld)6.9 %1.7 - 12.0 %[facility] NEUTROPHILS ABSOLUTE AUTO6.2NOMS HealthcareNeutrophils/100 WBC (Bld)55.4 %43.0 - 75.0 %[facility] HospitalPlatelet mean volume (Bld) [Entitic vol]10.7 fL9.5 - 13.5 fLNOPhelps HealthTBH EO #0.4NOMS HealthcareTB WIA524BKCU [facility] HospitalTB RBC4.37 NOMRipley County Memorial HospitalTB WBC11.1HighNOPhelps HealthCLINISYNCNOMS HealthcareXR Knee - right 3 Viewson 69-68-2866[place] [address] XRay Report Signed Patient: KARINA DE OLIVEIRA MR#: [id number] : 1965 Acct:[id number] Age/Sex: 58 / F ADM Date: 05/21/24 Loc: LAB Attending Dr: Ameena Vera [employer] Ordering Physician: Ameena Vera NP Date of Service: 05/21/24 Procedure(s): XR knee RT 3V Accession Number(s): [id number] cc: Ameena Vera NP [facility] [place] [address] Patient Name: KARINA DE OLIVEIRA MRN: [id number] date: 1965 Sex: F Assigned Patient Location: LAB Current Patient Location: LAB Accession/Order Number: [id number] Exam Date: 05/21/2024 13:21 Report Date: 05/21/2024 [...] Penny Jr., D.O.05/21/2024 1:21 PM Dictation Location: [place] [address] Electronically authenticated by: [id number] Y Date: 05/21/2024 13:21 Dictated By: Moustapha Penny M.D. Signed By: 05/21/24 1324 DD/ 1321 TD/TT: Pluck Separator:MCKAYLAHRadiology, Radiologist, - 05/21/2024 [place] [address] XRay Report Signed Patient: KARINA DE OLIVEIRA MR#: [id number] : 1965 Acct:[id number] Age/Sex: 58 / F ADM Date: 05/21/24 Loc: LAB Attending Dr: Ameena Vera NP Ordering Physician: Ameena Vera NP Date of Service: 05/21/24 Procedure(s): XR knee RT 3V Accession Number(s): [id number] cc: Ameena Vera NP [place] [id number] Patient Name: KARINA DE OLIVEIRA MRN: [facility]:[id number] date: 1965 Sex: F Assigned Patient Location: LAB Current Patient Location: LAB Accession/Order Number: [id number] Exam Date: 05/21/2024 13:21 Report Date: 05/21/2024 [...] Penny Jr., D.O.05/21/2024 1:21 PM Dictation Location: [place] [address] Electronically authenticated by: [id number] Y Date: 05/21/2024 13:21 Dictated By: Moustapha Penny M.D. Signed By: 05/21/24 1324 DD/ 1321 TD/TT: Pluck Separator: CRIS HealthcareRadiology Study observation (narrative)[facility] HospitalXR Knee - right 3 ViewsOrdered By: Radiologist Radiology on 64-90-7285KRJVPike County Memorial Hospital Work Phone: HbA1c (Bld) [Mass fraction]on 29-69-0931Cceufnuskslgus and review of laboratory resultsAbnormalHarris Regional HospitalLaboratory - Hematology and Cell countson 77-41-7133DtZ1v (Bld) [Mass fraction]6.70 %[facility] HospitalHbA1c (Bld) [Mass fraction]on 96-75-9616Bwpqiytouklvzp and review of laboratory resultsAbnormalResearch Psychiatric Center HealthcareLaboratory - Hematology and Cell countson 27-55-4210IyD1b (Bld) [Mass fraction]6.9 %[facility] TOMOSYNTHESIS SCREENING BIon 51-32-0839F[address] [address] Mammography Report Signed Patient: KARINA DE OLIVEIRA MR#: [id number] : 1965 Acct:[id number] Age/Sex: 58 / F ADM Date: 03/18/24 Loc: MAMMO Attending Dr: RADHA BARCLAY Ordering Physician: RADHA BARCLAY Results: Date of Service: 03/18/24 Follow Up: Procedure(s): MM tomosynthesis screening BI Accession Number(s): [id number] cc: SONAM DRAKE; RADHA BARCLAY Patient Name: KARINA DE OLIVEIRA MR#: [id number] : 1965 Exam Date: 03/18/2024 Ordering Doctor: DR RADHA BARCLAY [facility] RADIOLOGY REPORT PROCEDURE: MM TOMOSYNTHESIS [...] skin cancer at age 69. LOCATION: [facility] BREAST COMPOSITION: There are scattered [...] M.D. Signed By: 03/18/24 1454 DD/ TD/TT: Pluck Separator:TBHRadiology, Radiologist, - 03/18/2024 [place] [address] Mammography Report Signed Patient: KARINA DE OLIVEIRA MR#: [id number] : 1965 Acct:[id number] Age/Sex: 58 / F ADM Date: 03/18/24 Loc: MAMMO Attending Dr: RADHA BARCLAY Ordering Physician: RADHA BARCLAY Results: Date of Service: 03/18/24 Follow Up: Procedure(s): MM tomosynthesis screening BI Accession Number(s): [id number] cc: LOCO DRAKE SUSAN Patient Name: KARINA DE OLIVEIRA MR#: [id number] : 1965 Exam Date: 03/18/2024 Ordering Doctor: DR RADHA BARCLAY [facility] RADIOLOGY REPORT PROCEDURE: MM TOMOSYNTHESIS SCREENING BI COMPARISON: MM TOMOSYNTHESIS SCREENING BI, 03/20/2023. MG MAMM SCREEN 3D SALIAN CAD, 01/31/2021. MG MAMM SCREEN SALINA W [...] skin cancer at age 69. LOCATION: The [facility] BREAST COMPOSITION: There are scattered [...] M.D. Signed By: 03/18/241453 DD/ 53 TD/TT: Pluck Separator: [facility] HospitalRadiology Study observation (narrative)[facility] TOMOSYNTHESIS SCREENING BIOrdered By: Radiologist Radiology on 03-59-6361RLCU [employer] Work Phone: XR FOOT LT MIN 3Von 90-30-9623AiiSav[place], [place] [address] XRay Report Signed Patient: KARINA DE OLIVEIRA MR#: [id number] : 1965 Acct:[id number] Age/Sex: 58 / F ADM Date: 01/29/24 Loc: RAD Attending Dr: Sussy Jones D.P.M. Ordering Physician: Sussy Jones D.P.M. Date of Service: 01/29/24 Procedure(s): XR foot LT min 3V Accession Number(s): [id number] cc: LOCO DRAKE Peter D.P.M. [place] [id number] Patient Name: KARINA DE OLIVEIRA MRN: [id number] date: 1965 Sex: F Assigned Patient Location: RAD Current Patient Location: Accession/Order Number: [id number] Exam Date: 01/29/2024 09:28 Report Date: 01/30/2024 [...] Salter M.D. Signed By: 01/30/2441 DD/ TD/TT: Pluck Separator:TBHRadiology, Radiologist, MD - 01/30/2024 [place] [address] XRay Report Signed Patient: KARINA DE OLIVEIRA MR#: [id number] : 1965 Acct:[id number] Age/Sex: 58 / F ADM Date: 01/29/24 Loc: RAD Attending Dr: Sussy Joens D.P.M. Ordering Physician: Sussy Jones D.P.M. Date of Service: 01/29/24 Procedure(s): XR foot LT min 3V Accession Number(s): [id number] cc: LOCO DRAKE Peter D.P.M. [facility] [place] [id number] Patient Name: KARINA DE OLIVEIRA MRN: [id number] date: 1965 Sex: F Assigned Patient Location: [facility] Current Patient Location: Accession/Order Number: [id number] Exam Date: 01/29/2024 09:28 Report Date: 01/30/2024 [...] M.D. Signed By: 01/30/2441 DD/ 7 TD/TT: Pluck Separator: [facility] HospitalRadiology Study observation (narrative)[facility] HealthcareXR FOOT LT MIN 3VOrdered By: Radiologist Radiology on 60-31-9596WSGMPike County Memorial Hospital Work Phone: all CBC WITH AUTO DIFFon 37-90-1471KGQPYKZZS ABSOLUTE AUTO0.1NOMS HealthcareBasophils/100 WBC (Bld)0.4 %0.2 - 2.0 %[facility] Healthcare Eosinophils/100 WBC (Bld)3.2 %0.9 - 7.0 %[facility] HospitalErythrocyte distribution width (RBC) [Ratio]15.6 %High11.0 - 15.0 %[facility] HealthcareHematocrit (Bld) [Volume fraction]42.4 %36.0 - 48.0 %[facility] HospitalHemoglobin (Bld) [Mass/Vol] 13.9 g/dL12.0 - 16.0 g/dLPike County Memorial HospitalIMMATURE GRANULOCYTES ABS AUTO0.09High [facility] HospitalImmature granulocytes/100 WBC (Bld)0.7 %High0.0 - 0.5 %[facility] HealthcareInterpretation and review of laboratory resultsAbnormalPike County Memorial Hospital LYMPHOCYTES ABSOLUTE AUTO3.5NOPhelps HealthLymphocytes/100 WBC (Bld)27.7 %20.5 - 60.0 %[facility] HospitalH (RBC) [Entitic mass]31.4 pg26.7 - 34.0 pgNORanken Jordan Pediatric Specialty HospitalHC (RBC) [Mass/Vol]32.8 g/dL29.9 - 35.2 g/dLColumbia Regional HospitalV (RBC) [Entitic vol]95.7 fL81.0 - 99.0 fLNOMS HealthcareMONOCYTES ABSOLUTE AUTO0.9High NOMS HealthcareMonocytes/100 WBC (Bld)7.4 %1.7 - 12.0 %[facility] Healthcare NEUTROPHILS ABSOLUTE AUTO7.7HighNOMS HealthcareNeutrophils/100 WBC (Bld)60.6 % 43.0 - 75.0 %NOMS HealthcarePlatelet mean volume (Bld) [Entitic vol]10.9 fL9.5 - 13.5 fLNOMS HealthcareTBH EO #0.4NOMS HealthcareTBH CMY198XWBC HealthcareTBH RBC 4.43NOMS HealthcareTBH WBC12.8HighNOMS HealthcareCLINISYNCNOMS HealthcareXR FOOT LT MIN 3Von 11-29-7447ReqSav[place] [address] XRay Report Signed Patient: KARINA DE OLIVEIRA MR#: [id number] : 1965 Acct:[id number] Age/Sex: 58 / F ADM Date: 12/18/23 Loc: RAD Attending Dr: Sussy Jones D.P.M. Ordering Physician: Sussy Jones D.P.M. Date of Service: 12/18/23 Procedure(s): XR foot LT min 3V Accession Number(s): [id number] cc: Shaikh Erica Connelly; Sussy Jones D.P.M. [facility] [place] [address] Patient Name: KARINA DE OLIVEIRA MRN: [id number] date: 1965 Sex: F Assigned Patient Location: [facility] Current Patient Location: PT Accession/Order Number: [id number] Exam Date: 12/18/2023 10:58 Report Date: 12/23/2023 [...] Signed By: 12/23/23 0741 DD/ 0739 TD/TT: Pluck Separator:TBHRadiology, Radiologist, - 12/23/2023 [place] [address] XRay Report Signed Patient: KARINA DE OLIVEIRA MR#: [id number] : 1965 Acct:[id number] Age/Sex: 58 / F ADM Date: 12/18/23 Loc: RAD Attending Dr: Sussy Jones D.P.M. Ordering Physician: Sussy Jones D.P.M. Date of Service: 12/18/23 Procedure(s): XR foot LT min 3V Accession Number(s): [id number] cc: Shaikh Erica Connelly; Sussy Jones D.P.M. [facility] [place] [id number] Patient Name: KARINA DE OLIVEIRA MRN: [id number] date: 1965 Sex: F Assigned Patient Location: [facility] Current Patient Location: PT Accession/Order Number: [id number] Exam Date: 12/18/2023 10:58 Report Date: 12/23/2023 [...] Wang M.D. Signed By: 12/23/2341 DD/ TD/TT: Pluck Separator: CRIS HealthcareRadiology Study observation (narrative)[facility] HealthcareXR FOOT LT MIN 3VOrdered By: Radiologist Radiology on 41-84-6091HQDE Healthcare Work Phone: XR FOOT LT MIN 3Von 12-78-0856SbnSav[place], [place] [address] XRay Report Signed Patient: KARINA DE OLIVEIRA MR#: [id number] : 1965 Acct:[id number] Age/Sex: 57 / F ADM Date: 10/16/23 Loc: EC Attending Dr: Sussy Jones D.P.M. Ordering Physician: Sussy Jones D.P.M. Date of Service: 10/16/23 Procedure(s): XR foot LT min 3V Accession Number(s): [id number] cc: Shaikh Erica Connelly; Sussy Jones D.P.M. [place] [address] Patient Name: KARINA DE OLIVEIRA MRN: [id number] date: 1965 Sex: F Assigned Patient Location: Current Patient Location: Accession/Order Number: [id number] Exam Date: 10/16/2023 11:20 Report Date: 10/17/2023 [...] Signed By: 10/17/23 0701 DD/ 0658 TD/TT: Pluck Separator:TBHRadiology, Radiologist, - 10/17/2023 [place] [address] XRay Report Signed Patient: KARINA DE OLIVEIRA MR#: [id number] : 1965 Acct:[id number] Age/Sex: 57 / F ADM Date: 10/16/23 Loc: EC Attending Dr: Sussy Jones D.P.M. Ordering Physician: Sussy Jones D.P.M. Date of Service: 10/16/23 Procedure(s): XR foot LT min 3V Accession Number(s): [id number] cc: Shaikh Erica Connelly; Sussy Jones D.P.M. [facility] [place] [address] Patient Name: KARINA DE OLIVEIRA MRN: [id number] date: 1965 Sex: F Assigned Patient Location: Current Patient Location: Accession/Order Number: [id number] Exam Date: 10/16/2023 11:20 Report Date: 10/17/2023 [...] M.D. Signed By: 10/17/23 07 DD/ TD/TT: Pluck Separator: CRIS HealthcareRadiology Study observation (narrative)NOMS HealthcareXR FOOT LT MIN 3VOrdered By: Radiologist Radiology on 30-49-0694AZJV Healthcare Work Phone: ct FOOT LT WO CONon 49-44-8954[place], [place] [address] CT Scan Report Signed Patient: KARINA DE OLIVEIRA MR#: [id number] : 1965 Acct:[id number] Age/Sex: 57 / F ADM Date: 09/12/23 Loc: CT Attending Dr: Sussy Jones D.P.M. Ordering Physician: Sussy Jones D.P.M. Date of Service: 09/12/23 Procedure(s): CT foot LT wo con Accession Number(s): [id number] cc: Shaikh Erica Connelly [place] [id number] Patient Name: KARINA DE OLIVEIRA MRN: [id number] date: 1965 Sex: F Assigned Patient Location: CT Current Patient Location: Accession/Order Number: [id number] Exam Date: 09/12/2023 12:57 Report Date: 09/13/2023 [...] Signed By: 09/13/23 0505 DD/ 0502 TD/TT: Pluck Separator:TBHRadiology, Radiologist, - 09/13/2023 [place] [address] CT Scan Report Signed Patient: KARINA DE OLIVEIRA MR#: [id number] : 1965 Acct:[id number] Age/Sex: 57 / F ADM Date: 09/12/23 Loc: CT Attending Dr: Sussy Jones D.P.M. Ordering Physician: Sussy Jones D.P.M. Date of Service: 09/12/23 Procedure(s): CT foot LT wo con Accession Number(s): [id number] cc: Shaikh Erica Connelly [facility] [place] [id number] Patient Name: KARINA DE OLIVEIRA MRN: [id number] date: 1965 Sex: F Assigned Patient Location: CT Current Patient Location: Accession/Order Number: [id number] Exam Date: 09/12/2023 12:57 Report Date: 09/13/2023 [...] Signed By: 09/13/23 050 DD/ 050 TD/TT: Pluck Separator: CRIS HealthcareRadiology Study observation (narrative)[facility] HealthcareCT FOOT LT WO CONOrdered By: Radiologist Radiology on 24-64-3488JNRJ [facility] Work Phone: XR FOOT LT MIN 3Von 98-17-1129[place]fu[place], [place] [address] XRay Report Signed Patient: KARINA DE OLIVEIRA MR#: [id number] : 1965 Acct:[id number] Age/Sex: 57 / F ADM Date: 09/03/23 Loc: EC Attending Dr: Sussy Jones D.P.M. Ordering Physician: Sussy Jones D.P.M. Date of Service: 09/03/23 Procedure(s): XR foot LT min 3V Accession Number(s): [id number] cc: Shaikh Erica Connelly; Sussy Jones D.P.M. The [place] [id number] Patient Name: KARINA DE OLIVEIRA MRN: [id number] date: 1965 Sex: F Assigned Patient Location: EC Current Patient Location: Accession/Order Number: [id number] Exam Date: 09/03/2023 15:15 Report Date: 09/04/2023 [...] Signed By: 09/04/23 0752 DD/ 0749 TD/TT: Pluck Separator:TBHRadiology, Radiologist, MD - 09/04/2023 [place] [address] XRay Report Signed Patient: KARINA DE OLIVEIRA MR#: [id number] : 1965 Acct:[id number] Age/Sex: 57 / F ADM Date: 09/03/23 Loc: EC Attending Dr: Sussy Jones D.P.M. Ordering Physician: Sussy Jones D.P.M. Date of Service: 09/03/23 Procedure(s): XR foot LT min 3V Accession Number(s): [id number] cc: Shaikh Erica Connelly; Sussy Jones D.P.M. The [place] [address] Patient Name: KARINA DE OLIVEIRA MRN: [id number] date: 1965 Sex: F Assigned Patient Location: Current Patient Location: Accession/Order Number: [id number] Exam Date: 09/03/2023 15:15 Report Date: 09/04/2023 [...] Signed By: 09/04/23 0752 DD/ 0749 TD/TT: Pluck Separator: CRIS HealthcareRadiology Study observation (narrative)[facility] HealthcareXR FOOT LT MIN 3VOrdered By: Radiologist Radiology on 52-00-9733QKZP Healthcare Work Phone: XR FOOT LT MIN 3Von 69-30-9608Wrm[place], [place] [address] XRay Report Signed Patient: KARINA DE OLIVEIRA MR#: [id number] : 1965 Acct:[id number] Age/Sex: 57 / F ADM Date: 08/13/23 Loc: EC Attending Dr: Sussy Jones D.P.M. Ordering Physician: Sussy Jones D.P.M. Date of Service: 08/13/23 Procedure(s): XR foot LT min 3V Accession Number(s): [id number] cc: Shaikh Erica Connelly; Sussy Jones D.P.M. The [place] [address] Patient Name: KARINA DE OLIVEIRA MRN: [facility]:[id number] date: 1965 Sex: F Assigned Patient Location: Current Patient Location: Accession/Order Number: [id number] Exam Date: 08/13/2023 14:05 Report Date: 08/14/2023 [...] Signed By: 08/14/23 1532 DD/ 153 TD/TT: Pluck Separator:TBHRadiology, Radiologist, MD - 08/14/2023 [place] [address] XRay Report Signed Patient: KARINA DE OLIVEIRA MR#: [id number] : 1965 Acct:[id number] Age/Sex: 57 / F ADM Date: 08/13/23 Loc: EC Attending Dr: Sussy Jones D.P.M. Ordering Physician: Sussy Jones D.P.M. Date of Service: 08/13/23 Procedure(s): XR foot LT min 3V Accession Number(s): [id number] cc: Shaikh Erica Connelly; Sussy Jones D.P.M. [place] [address] Patient Name: KARINA DE OLIVEIRA MRN: [id number] date: 1965 Sex: F Assigned Patient Location: Current Patient Location: Accession/Order Number: [id number] Exam Date: 08/13/2023 14:05 Report Date: 08/14/2023 [...] Signed By: 08/14/23 1532 DD/ 153 TD/TT: Pluck Separator: CRIS HealthcareRadiology Study observation (narrative)[facility] HealthcareXR FOOT LT MIN 3VOrdered By: Radiologist Radiology on 90-94-6214FIAC Healthcare Work Phone: XR TIBIA FIBULA LT 2Von 07-84-4414Vny [place] [address] XRay Report Signed Patient: KARINA DE OLIVEIRA MR#: [id number] : 1965 Acct:[id number] Age/Sex: 57 / F ADM Date: 08/13/23 Loc: EC Attending Dr: Sussy Jones D.P.M. Ordering Physician: Sussy Jones D.P.M. Date of Service: 08/13/23 Procedure(s): XR tibia fibula LT 2V Accession Number(s): [id number] cc: Shaikh Erica Connelly; Sussy Jones D.P.M. The [place] [phone] Patient Name: KARINA DE OLIVEIRA MRN: [id number] date: 1965 Sex: F Assigned Patient Location: Current Patient Location: Accession/Order Number: [id number] Exam Date: 08/13/2023 14:05 Report Date: 08/14/2023 [...] Signed By: 08/14/23 1529 DD/ 1527 TD/TT: Pluck Separator:TBHRadiology, Radiologist, - 08/14/2023 The [place] [id number] XRay Report Signed Patient: KARINA DE OLIVEIRA MR#: [id number] : 1965 Acct:[id number] Age/Sex: 57 / F ADM Date: 08/13/23 Loc: EC Attending Dr: Sussy Jones D.P.M. Ordering Physician: Sussy Jones D.P.M. Date of Service: 08/13/23 Procedure(s): XR tibia fibula LT 2V Accession Number(s): [id number] cc: Shaikh Erica Connelly; Sussy Jones D.P.M. [place] [address] Patient Name: KARINA DE OLIVEIRA MRN: [id number] date: 1965 Sex: F Assigned Patient Location: Current Patient Location: Accession/Order Number: [id number] Exam Date: 08/13/2023 14:05 Report Date: 08/14/2023 [...] Signed By: 08/14/23 1529 DD/ 1527 TD/TT: Pluck Separator: CRIS HealthcareRadiology Study observation (narrative)NOMS HealthcareXR TIBIA FIBULA LT 2VOrdered By: Radiologist Radiology on 73-06-6015ZZNK Healthcare Work Phone: XR FOOT LT MIN 3Von 96-63-8791[place], [place] [address] XRay Report Signed Patient: KARINA DE OLIVEIRA MR#: [id number] : 1965 Acct:[id number] Age/Sex: 57 / F ADM Date: 07/24/23 Loc: EC Attending Dr: Sussy Jones D.P.M. Ordering Physician: Sussy Jones D.P.M. Date of Service: 07/24/23 Procedure(s): XR foot LT min 3V Accession Number(s): [id number] cc: Shaikh Erica Connelly; Sussy Jones D.P.M. The [place] [address] Patient Name: KARINA DE OLIVEIRA MRN: [id number] date: 1965 Sex: F Assigned Patient Location: Current Patient Location: Accession/Order Number: [id number] Exam Date: 07/24/2023 13:37 Report Date: 07/24/2023 [...] Signed By: 07/24/23 1553 DD/ 1551 TD/TT: Pluck Separator:ALEXadiology, Radiologist, - 07/24/2023 [place] [address] XRay Report Signed Patient: KARINA DE OLIVEIRA MR#: [id number] : 1965 Acct:[id number] Age/Sex: 57 / F ADM Date: 07/24/23 Loc: EC Attending Dr: Sussy Jones D.P.M. Ordering Physician: Sussy Jones D.P.M. Date of Service: 07/24/23 Procedure(s): XR foot LT min 3V Accession Number(s): [id number] cc: Shaikh Erica Connelly; Sussy Jones D.P.M. [place] [address] Patient Name: KARINA DE OLIVEIRA MRN: [id number] date: 1965 Sex: F Assigned Patient Location: Current Patient Location: Accession/Order Number: [id number] Exam Date: 07/24/2023 13:37 Report Date: 07/24/2023 [...] Signed By: 07/24/23 1553 DD/ 155 TD/TT: Pluck Separator: CRIS HealthcareRadiology Study observation (narrative)[facility] HealthcareXR FOOT LT MIN 3VOrdered By: Radiologist Radiology on 56-37-5986BKSJ Healthcare Work Phone: XR FOOT LT MIN 3Von 31-98-[address] [address] XRay Report Signed Patient: KARINA DE OLIVEIRA MR#: [id number] : 1965 Acct:[id number] Age/Sex: 57 / F ADM Date: 07/03/23 Loc: EC Attending Dr: Sussy Jones D.P.M. Ordering Physician: Sussy Jones D.P.M. Date of Service: 07/03/23 Procedure(s): XR foot LT min 3V Accession Number(s): [id number] cc: Shaikh Erica Connelly; Sussy Jones D.P.M. The [address] [address] Patient Name: KARINA DE OLIVEIRA MRN: [id number] date: 1965 Sex: F Assigned Patient Location: Current Patient Location: Accession/Order Number: [id number] Exam Date: 07/03/2023 10:54 Report Date: 07/03/2023 [...] Signed By: 07/03/23 1407 DD/ 03 TD/TT: Pluck Separator:TBHRadiology, Radiologist, - 07/03/2023 [place] [address] XRay Report Signed Patient: KARINA DE OLIVEIRA MR#: [id number] : 1965 Acct:[id number] Age/Sex: 57 / F ADM Date: 07/03/23 Loc: EC Attending Dr: Sussy Jones D.P.M. Ordering Physician: Sussy Jones D.P.M. Date of Service: 07/03/23 Procedure(s): XR foot LT min 3V Accession Number(s): [id number] cc: Shaikh Erica Connelly; Sussy Jones D.P.M. [place] [address] Patient Name: KARINA DE OLIVEIRA MRN: [id number] date: 1965 Sex: F Assigned Patient Location: Current Patient Location: Accession/Order Number: [id number] Exam Date: 07/03/2023 10:54 Report Date: 07/03/2023 [...] Signed By: 07/03/23 1407 DD/ 03 TD/TT: Pluck Separator: CRIS HealthcareRadiology Study observation (narrative)[facility] HealthcareXR FOOT LT MIN 3VOrdered By: Radiologist Radiology on 69-68-6592QERP [facility] Work Phone: ecG 12-LEADon 14-15-3737[place], [place] [address] Electrocardiograph Report Signed Patient: KARINA DE OLIVEIRA MR#: [id number] : 1965 Acct:[id number] Age/Sex: 57 / F ADM Date: 06/08/23 Loc: MS 231-[address]: Rivas Pahceco M.D. 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 Signed By: 06/09/23 0712 DD/ 1537 TD/TT: Pluck Separator:TBHRadiology, Radiologist, MD - 06/09/2023 The [place] [id number] Electrocardiograph Report Signed Patient: KARINA DE OLIVEIRA MR#: [id number] : 1965 Acct:[id number] Age/Sex: 57 / F ADM Date: 06/08/23 Loc: MS 231-[address]: Rivas Pacheco M.D. 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 Ordering Physician: Anahi Soriano Date of Service: 06/08/23 Procedure(s): CT foot LT wo con Accession Number(s): [id number] cc: Shaikh Erica Connelly [address] [address] Patient Name: KARINA DE OLIVEIRA MRN: [id number] date: 1965 Sex: F Assigned Patient Location: ER Current Patient Location: MS Accession/Order Number: [id number] Exam Date: 06/08/2023 17:15 Report Date: 06/08/2023 [...] Muñoz M.D. Signed By: 06/08/231831 DD/ TD/TT: Pluck Separator:TBHRadiology, Radiologist, MD - 06/08/2023 [place] [address] CT Scan Report Signed Patient: KARINA DE OLIVEIRA MR#: [id number] : 1965 Acct:[id number] Age/Sex: 57 / F ADM Date: 06/08/23 Loc: MS 231-[address]: Rivas Pacheco M.D. Ordering Physician: Anahi Soriano Date of Service: 06/08/23 Procedure(s): CT foot LT wo con Accession Number(s): [id number] cc: Shaikh Erica Connelly [address] [address] Patient Name: KARINA DE OLIVEIRA MRN: [id number] date: 1965 Sex: F Assigned Patient Location: ER Current Patient Location: MS Accession/Order Number: [id number] Exam Date: 06/08/2023 17:15 Report Date: 06/08/2023 [...] M.D. Signed By: 06/08/231831 DD/ 28 TD/TT: Pluck Separator: CRIS HealthcareRadiology Study observation (narrative)[facility] HealthcareCT FOOT LT WO CONOrdered By: Radiologist Radiology on 48-35-2838OAQF Healthcare Work Phone: ECG 12-LEADon 99-59-4251Lyukimxkl Study observation (narrative)[facility] LUMBAR SPINE WO CONon 00-74-3308[place] [address] Magnetic Resonance Report Signed Patient: KARINA DE OLIVEIRA MR#: [id number] : 1965 Acct:[id number] Age/Sex: 57 / F ADM Date: 06/06/23 Loc: MRI Attending Dr: James Tijerina NP Ordering Physician: James Tijerina NP Date of Service: 06/06/23 Procedure(s): MR lumbar spine wo con Accession Number(s): [id number] cc: Shaikh Erica Connelly; James Tijerina NP [place] [address] Patient Name: KARINA DE OLIVEIRA MRN: [id number] date: 1965 Sex: F Assigned Patient Location: MRI Current Patient Location: MRI Accession/Order Number: [id number] Exam Date: 06/06/2023 12:30 Report Date: 06/06/2023 [...] Fritz M.D. Signed By: 06/06/231650 DD/ TD/TT: Pluck Separator:TBHRadiology, Radiologist, - 06/06/2023 [place] [address] Magnetic Resonance Report Signed Patient: KARINA DE OLIVEIRA MR#: [id number] : 1965 Acct:[id number] Age/Sex: 57 / F ADM Date: 06/06/23 Loc: MRI Attending Dr: James Tijerina NP Ordering Physician: James Tijerina NP Date of Service: 06/06/23 Procedure(s): MR lumbar spine wo con Accession Number(s): [id number] cc: Shaikh Erica Connelly; James Tijerina NP [address] [address] Patient Name: KARINA DE OLIVEIRA MRN: [id number] date: 1965 Sex: F Assigned Patient Location: MRI Current Patient Location: MRI Accession/Order Number: [id number] Exam Date: 06/06/2023 12:30 Report Date: 06/06/2023 [...] M.D. Signed By: 06/06/231650 DD/ 48 TD/TT: Pluck Separator: [facility] HospitalRadiology Study observation (narrative)[facility] LUMBAR SPINE WO CONOrdered By: Radiologist Radiology on 96-08-4093CIGF [employer] Work Phone: XR LUMBAR SPINE 6V W BENDINGon 96-24-9934Jva[place], [place] [address] XRay Report Signed Patient: KARINA DE OLIVEIRA MR#: [id number] : 1965 Acct:[id number] Age/Sex: 57 / F ADM Date: 05/22/23 Loc: RAD Attending Dr: James Tijerina [employer] Ordering Physician: James Tijerina NP Date of Service: 05/22/23 Procedure(s): XR lumbar spine 6V w bending Accession Number(s): [id number] cc: Shaikh Erica Connelly; James Tijerina NP [place] [address] Patient Name: KARINA DE OLIVEIRA MRN: [id number] date: 1965 Sex: F Assigned Patient Location: [facility] Current Patient Location: RAD Accession/Order Number: [id number] Exam Date: 05/22/2023 12:18 Report Date: 05/22/2023 [...] Signed By: 05/22/23 1551 DD/ 1548 TD/TT: Pluck Separator:TBHRadiology, Radiologist, MD - 05/22/2023 [place] [address] XRay Report Signed Patient: KARINA DE OLIVEIRA MR#: [id number] : 1965 Acct:[id number] Age/Sex: 57 / F ADM Date: 05/22/23 Loc: [place] Attending Dr: James Tijerina NP Ordering Physician: James Tijerina NP Date of Service: 05/22/23 Procedure(s): XR lumbar spine 6V w bending Accession Number(s): [id number] cc: Shaikh Erica Connelly; James Tijerina NP The [place] [address] Patient Name: KARINA DE OLIVEIRA MRN: [id number] date: 1965 Sex: F Assigned Patient Location: [facility] Current Patient Location: [facility] Accession/Order Number: [id number] Exam Date: 05/22/2023 12:18 Report Date: 05/22/2023 [...] By: Ryan Wang M.D. Signed By: 05/22/23 1558 DD/ 47 TD/TT: Pluck Separator: [facility] HealthcareRadiology Study observation (narrative)[facility] HospitalXR LUMBAR SPINE 6V W BENDINGOrdered By: Radiologist Radiology on 72-02-7067AMUZ [facility] Work Phone: aLL LIPID PROFILE (FASTING)on 72-19-2629IBJK HDL RATIO 2.3NONH HealthcareComment on above:3.3 - 4.4 LOW RISK 4.4 - 7.1 AVERAGE RISK 7.1 - 11.0 MODERATE RISK >11.0 HIGH RISK Cholesterol [Mass/Vol]110 mg/dLNINF - 200 mg/dLPike County Memorial HospitalCholesterol in HDL [Mass/Vol]47 mg/dL40 - 60 mg/dLNONH HealthcareComment on above:> or =60 mg/dl - LOW CARDIOVASCULAR RISK <40 mg/dl - HIGH CARDIOVASCULAR RISK Magnesium [Mass/Vol]42.4 mg/dLNONH HealthcareComment on above:<100 mg/dl OPTIMAL 100-129 mg/dl NEAR OR ABOVE OPTIMAL 130-159 mg/dl BORDERLINE HIGH 160-189 mg/dl HIGH >190 mg/dl VERY HIGH Magnesium [Mass/Vol]20.6 mg/dLPike County Memorial HospitalTriglyceride [Mass/Vol]103 mg/dL NINF - 150 mg/dLNOMadison Medical CenterHP LIVER PANELon 79-71-0741Ujjrpjw [Mass/Vol] 3.3 g/dLLow3.4 - 5.0 g/dLPike County Memorial HospitalALBUMIN GLOBULIN RATIO0.8NOPhelps Health ALP [Catalytic activity/Vol]66 U/L46 - 116 U/LNOMS HealthcareALT [Catalytic activity/Vol]26 U/L14 - 59 U/LNOMS HealthcareAST [Catalytic activity/Vol]15 U/L 15 - 37 U/LNOMS HealthcareBilirubin [Mass/Vol]0.3 mg/dL0.2 - 1.0 mg/dLNOMS HealthcareBilirubin.indirect [Mass/Vol]0.1 mg/dL0.0 - 0.2 mg/dLNOMS Healthcare Globulin (S) [Mass/Vol]4.2 g/dLNOMS HealthcareInterpretation and review of laboratory resultsAbnormalNOMS HealthcareProtein [Mass/Vol]7.5 g/dL6.4 - 8.2 g/dLNOMS HealthcareMM TOMOSYNTHESIS SCREENING BIon 83-05-1887SzeSav[place], [place] [address] Mammography Report Signed Patient: KARINA DE OLIVEIRA MR#: [id number] : 1965 Acct:[id number] Age/Sex: 57 / F ADM Date: 03/20/23 Loc: MAMMO Attending Dr: RADHA BARCLAY Ordering Physician: RADHA BARCLAY Results: Date of Service: 03/20/23 Follow Up: Procedure(s): MM tomosynthesis screening BI Accession Number(s): [id number] cc: Shaikh Erica Connelly; RADHA BARCLAY Patient Name: KARINA DE OLIVEIRA MR#: [id number] : 1965 Exam Date: 03/20/2023 Ordering Doctor: DR RADHA BARCLAY [facility] RADIOLOGY REPORT PROCEDURE: MM TOMOSYNTHESIS [...] skin cancer at age 69. LOCATION: [facility] BREAST COMPOSITION: Scattered areas fibroglandular [...] Signed By: 03/20/23 1259 DD/ 1257 TD/TT: Pluck Separator:ALEXadiologaislinn, MD Radha - 03/20/2023 [place] [address] Mammography Report Signed Patient: KARINA DE OLIVEIRA MR#: [id number] : 1965 Acct:[id number] Age/Sex: 57 / F ADM Date: 03/20/23 Loc: MAMMO Attending Dr: RADHA BARCLAY Ordering Physician: RADHA BARCLAY Results: Date of Service: 03/20/23 Follow Up: Procedure(s): MM tomosynthesis screening BI Accession Number(s): [id number] cc: Shaikh Erica Connelly; RADHA BARCLAY Patient Name: KARINA DE OLIVEIRA MR#: [id number] : 1965 Exam Date: 03/20/2023 Ordering Doctor: DR RADHA BARCLAY [facility] RADIOLOGY REPORT PROCEDURE: MM TOMOSYNTHESIS [...] skin cancer at age 69. LOCATION: [facility] BREAST COMPOSITION: Scattered areas fibroglandular [...] Signed By: 03/20/23 1259 DD/ 1257 TD/TT: Pluck Separator: CRIS [facility] HospitalRadiology Study observation (narrative)[facility] TOMOSYNTHESIS SCREENING BIOrdered By: Radiologist Radiology on 48-86-1358YOLW [employer] Work Phone: No Panel Informationon 36-31-6372EXPYZWVDUZGXW HealthcareXR DEXA AXIAL SKELETONon 13-23-6983Vwm[place], [place] [address] XRay Report Signed Patient: KARINA DE OLIVEIRA MR#: [id number] : 1965 Acct:[id number] Age/Sex: 57 / F ADM Date: 03/20/23 Loc: MAMMO Attending Dr: RADHA BARCLAY Ordering Physician: RADHA BARCLAY Date of Service: 03/20/23 Procedure(s): XR DEXA axial skeleton Accession Number(s): [id number] cc: Shaikh Erica Connelly; RADHA BARCLAY [place] [address] Patient Name: KARINA DE OLIVEIRA MRN: [id number] date: 1965 Sex: F Assigned Patient Location: [facility] Current Patient Location: LAB Accession/Order Number: [id number] Exam Date: 03/20/2023 09:28 Report Date: 03/20/2023 [...] M.D. Signed By: 03/20/23949 DD/ 7 TD/TT: Pluck Separator:TBHRadiology, Radiologist, - 03/20/2023 [place] [address] XRay Report Signed Patient: KARINA DE OLIVEIRA MR#: [id number] : 1965 Acct:[id number] Age/Sex: 57 / F ADM Date: 03/20/23 Loc: MAMMO Attending Dr: RADHA BARCLAY Ordering Physician: RADHA BARCLAY Date of Service: 03/20/23 Procedure(s): XR DEXA axial skeleton Accession Number(s): [id number] cc: Shaikh Erica Connelly; RADHA BARCLAY [place] [address] Patient Name: KARINA DE OLIVEIRA MRN: [id number] date: 1965 Sex: F Assigned Patient Location: [facility] Current Patient Location: LAB Accession/Order Number: [id number] Exam Date: 03/20/2023 09:28 Report Date: 03/20/2023 [...] M.D. Signed By: 03/20/23949 DD/ 7 TD/TT: Pluck Separator: CRIS HealthcareRadiology Study observation (narrative)[facility] HealthcareXR DEXA AXIAL SKELETONOrdered By: Radiologist Radiology on 76-28-8051JVKC [employer] Work Phone: XR LSPINE 2_3 VIEWSon 23-57-3758KM LSPINE 2_3 VIEWS EXAMINATION: XR LSPINE 2_3 [...] authenticated by: PATTIE SALTER Date: 2022-06-07 11:15NormalThe [facility] AUTO DIFFon 42-22-2915IDFC #0.1 103/ulNormal0.0-0.1The [facility] CenterComment on above:Performed By: #### CBC ####[facility] [address] [place], [place] [address]Fk.Yilan ChangBasophils/100 WBC (Bld)0.5 %Normal0.2-2.0The [facility] CenterComment on above:Performed By: #### CBC ####[facility] [address] [place], [place] [address]Yp.Yilan ChangEO #0.3 103/ulNormal0.0-0.7The [facility] CenterComment on above:Performed By: #### CBC ####[facility] [address] [place] [address]Dr.Ricky ChangEosinophils/100 WBC (Bld)3.0 %Normal 0.9-7.0The [facility] CenterComment on above:Performed By: #### CBC ####[facility] [address] [place], [place] [address]Dr.Ricky Valenzuela Erythrocyte distribution width (RBC) [Ratio]14.8 %Pmevql05.0-15.0The [facility] CenterComment on above:Performed By: #### CBC ####[facility] [address] [place], [place] [address]Dr.Ricky ChangHematocrit (Bld) [Volume fraction]40.6 %Jcssgk37.0-48.0The [facility] CenterComment on above:Performed By: #### CBC ####[facility] [address] [place], [place] [address]Dr.Ricky ChangHemoglobin (Bld) [Mass/Vol]13.5 g/dL Ejtozm72.0-16.0The [facility] CenterComment on above:Performed By: #### CBC ####[facility] [address] [place], [place] [address]Dr. Ricky ChangIG #0.16 10e3/ulCritically high0.00-0.03The [facility] CenterComment on above:Performed By: #### CBC ####[facility] Nfil[address]uv[address] [place], [place] [address]Dr.Ricky ChangIG %1.4 %Critically high0.0-0.5The [facility] CenterComment on above:Performed By: #### CBC ####[facility] Ybkpktichu[address] [place], [place] [address]Dr.Ricky ChangLYMPH #3.4 103/ulNormal1.2-3.8The [facility] CenterComment on above:Performed By: #### CBC ####[facility] [address] [place], [place] [address]Dr. Ricky ChangLymphocytes/100 WBC (Bld)30.4 %Vkkcsi08.5-60.0[facility] Comment on above:Performed By: #### CBC ####[facility] [address] [place] [address]Dr.Ricky ValenzuelaMANUAL DIFF REQNONormalThe [facility] CenterComment on above:Performed By: #### CBC ####[facility] Vmbfwnyn[address] [place], [place] [address]Dr.Lesleysharron ValenzuelaH (RBC) [Entitic mass]31.8 baObwjxf79.7-34.0The [place] HospitalComment on above: Performed By: #### CBC ####[facility] Dxjvoqk[address] [place], [place] [address]Dr.Lesleysharron ValenzuelaHC (RBC) [Mass/Vol]33.3 g/dLNormal 29.9-35.2The [facility] CenterComment on above:Performed By: #### CBC ####[facility] Kkzpleiqj[address] [place], [place] [address]Dr. Ricky ValenzuelaV (RBC) [Entitic vol]95.5 jWLsfsic73.0-99.0The [facility] Comment on above:Performed By: #### CBC ####[facility] Cdzcmyjybw[address] [place], [place] [address]DrDenise ValenzuelaMONO #0.9 103/ulCritically high0.3-0.8The [facility] CenterComment on above:Performed By: #### CBC ####[facility] Ckbgcraxtl[address] [place], [place] [address]Dr. Ricky ValenzuelaMonocytes/100 WBC (Bld)7.7 %Normal1.7-12.0The [facility] Comment on above:Performed By: #### CBC ####[facility] Uywjoqrjuz[address] [place], [place] [address]DrDenise ValenzuelaNEUT #6.3 103/ulNormal1.4-6.5 The [facility] CenterComment on above:Performed By: #### CBC ####[facility] Sxbpyjttgj[address] [place], [place] [address]DrDenise Valenzuela Neutrophils/100 WBC (Bld)57.0 %Oleazh89.0-75.0The [facility] CenterComment on above:Performed By: #### CBC ####[facility] [address] [address]Dr.Ricky ValenzuelaPlatelet mean volume (Bld) [Entitic vol] 9.8 fLNormal9.5-13.5The [facility] CenterComment on above:Performed By: #### CBC ####[facility] Wfxqrntkih[address] [place], [place] [address]Dr. Ricky KehoyRPM082 103/gjRiglri182-553Vjq [facility] CenterComment on above: Performed By: #### CBC ####[facility] Yowcrcpgzx[address] [place], [place] [address]Dr.Ricky ChangRBC4.25 106/ulNormal4.20-5.40The [facility] CenterComment on above:Performed By: #### CBC ####[facility] Ltmvydfgkn[address] [place], [place] [address]Dr.Ricky ValenzuelaWBC11.1 103/ul Critically high4.0-11.0The [facility] CenterComment on above:Performed By: #### CBC ####[facility] Rbtyyipsfg[address] [place], [place] [address]Dr. Ricky ValenzuelaGLYCOHEMOGLOBIN A1Con 26-97-1438LDZ RECOMMENDATIONSEE BELOWLima City HospitalComment on above:Result Comment: ADA RECOMMENDED LIMIT 4.0 - 6.0 ADA THERAPEUTIC TARGET < 7.0 ACTION SUGGESTED > 7.0Performed By: #### A1C ####[facility] Inwdwtdjdr[address] [place], [place] [address]Dr. Ricky ValenzuelaGlucose [Mass/Vol]160 mg/dLLima City HospitalComment on above:Performed By: #### A1C ####[facility] Vnygmrnnve[address] [place], [place] [address]Dr.Ricky ValenzuelaHbA1c (Bld) [Mass fraction]7.2 % Critically high4.5-6.2The [facility] CenterComment on above:Performed By: #### A1C ####[facility] [address] [address]Dr. Ricky ValenzuelaMICROALBUMIN, RAND URon 40-18-7054mOAR<1.3Normal<=30.0The [facility] CenterComment on above:Performed By: #### MALBR #### [facility] [address] [place] [address] Dr. Ricky ValenzuelaPROF 14(COMP METB)on 51-01-2999Jrwwslh [Mass/Vol]3.3 g/dL Critically low3.4-5.0The [facility] CenterComment on above:Performed By: #### CMP #### [facility] [address] [place] [address] Dr. Ricky ValenzuelaAlbumin/Globulin [Mass ratio]0.9 {ratio}NormalThe [facility] CenterComment on above:Performed By: #### CMP #### [facility] [address] [place] [address] Dr. Ricky RodriguesP [Catalytic activity/Vol]90 U/YGupxvf04-812Rbe [facility] CenterComment on above:Performed By: #### CMP #### [facility] [address] [place] [address] Dr. Ricky Amrbiz [Catalytic activity/Vol]42 U/EGufsyz82-14Tkz [facility] CenterComment on above:Performed By: #### CMP #### [facility] [address] [place] [address] Dr. Ricky Campbell gap [Moles/Vol]10.1 mmol/LNormalThe [facility] Comment on above:Performed By: #### CMP #### [facility] [address] [place] [address] Dr. Ricky Wells [Catalytic activity/Vol]21 U/CQdxoph87-32Hfr [facility] CenterComment on above:Performed By: #### CMP #### [facility] [address] [place] [address] Dr. Ricky ValenzuelaBilirubin [Mass/Vol]0.3 mg/dLNormal0.2-1.0The [facility] Comment on above:Performed By: #### CMP #### [facility] [address] [address] [address] Ricky ValenzuelaCalcium [Mass/Vol]9.8 mg/dLNormal8.5-10.1The [facility] Comment on above:Performed By: #### CMP #### [facility] [address] [address] [address] Ricky ValenzuelaChloride [Moles/Vol]99 mmol/VOcnoul98-107Hok [facility] Comment on above:Performed By: #### CMP #### [facility] [address] [address] [address] Ricky ValenzuelaCO2 [Moles/Vol]33.7 mmol/LCritically high21.0-32.0The [facility] CenterComment on above:Performed By: #### CMP #### [facility] [address] [address] [address] Ricky ValenzuelaCreatinine [Mass/Vol]0.94 mg/dLNormal0.55-1.02The [facility] CenterComment on above:Performed By: #### CMP #### [facility] [address] [address] [address] Ricky ReynosoGFR-AF MONTSERRATIAN>60Normal>=60The [facility] CenterComment on above:Performed By: #### CMP #### [facility] [address] [address] [address] Ricky ReynosoGFR-NON AF MONTSERRATIAN>60Normal>=60The [facility] CenterComment on above:Performed By: #### CMP #### [facility] [address] [address] [address] Ricky ValenzuelaGlobulin (S) [Mass/Vol]3.8 g/dLNormalThe [facility] CenterComment on above:Performed By: #### CMP #### [facility] [address] [address] [address] Ricky ValenzuelaGlucose [Mass/Vol]168 mg/dLCritically rhch08-133Hcj [facility] CenterComment on above:Performed By: #### CMP #### [facility] [address] [place], [place] [address] Dr. Ricky ValenzuelaPotassium [Moles/Vol]4.8 mmol/LNormal3.5-5.1The [facility] Comment on above:Performed By: #### CMP #### [facility] [address] [place], [place] [address] Dr. Ricky ValenzuelaProtein [Mass/Vol]7.1 g/dLNormal6.4-8.2The [facility] Comment on above:Performed By: #### CMP #### [facility] [address] [place], [place] [address] Dr. Ricky ValenzuelaSodium [Moles/Vol]138 mmol/BBvhmwf683-067Kbm [facility] Comment on above:Performed By: #### CMP #### [facility] [address] Ricky ValenzuelaUrea nitrogen [Mass/Vol]22.0 mg/dLCritically high7.0-18.0[facility] HospitalComment on above:Performed By: #### CMP #### [facility] [address] [place], [place] [address] Dr. Ricky Alcala nitrogen/Creatinine [Mass ratio]23.4 mg/mgNormalThe [facility] CenterComment on above:Performed By: #### CMP #### [facility] [id number] Ricky Caicedoologyon 86-52-5920Ioxwogqk(NOTE) INTERPRETATION Vaginal material, (ThinPrep vial, Imaging-assisted review): Specimen Adequacy: Satisfactory for evaluation. Descriptive Diagnosis: Negative for intraepithelial lesion or malignancy. Tram Operator: CLARK Delacruz(ASCP) Electronically Signed Out zackary/09/07/2021 Source: A: Vaginal material, (ThinPrep vial, Imaging-assisted review) Clinical History Hysterectomy Surgery: Salpingostomy; Ovary removal Z12.4 Encounter for screening for malignant neoplasm of cervix GYNECOLOGIC CYTOLOGY REPORT Patient Name: KARINA DE OLIVEIRA [facility] Rec: [id number] Path Number: [id number] [facility] ANATOMIC PATHOLOGY [address] [place] [id number] NoSt. Charles HospitalComment on above:Performed By: #### PPPVP #### [facility] Envi[employer]Gene [facility] [id number] Nursing Director: Luca Cummins [facility] AUTO DIFFon 07-06-6210FVNA #0.1 103/ulNormal 0.0-0.1The [facility] CenterComment on above:Performed By: #### CBC #### [facility] [address] [address] [address] Ricky ValenzuelaBasophils/100 WBC (Bld)0.8 %Normal0.2-2.0The [facility] Comment on above:Performed By: #### CBC #### [facility] [address] [place] [address] Dr. Ricky Anderson #0.2 103/ulNormal0.0-0.7The [facility] CenterComment on above: Performed By: #### CBC #### [facility] [address] [address] [address] Ricky Reynosoosinophils/100 WBC (Bld)2.1 %Normal0.9-7.0The [facility] Comment on above:Performed By: #### CBC #### [facility] [address] [place] [address] Dr. Ricky Reynosorythrocyte distribution width (RBC) [Ratio]15.2 %Critically high 11.0-15.0The [facility] CenterComment on above:Performed By: #### CBC #### [facility] [address] [place] [address] Dr. Ricky ValenzuelaHematocrit (Bld) [Volume fraction]41.5 %Lqmgbw38.0-48.0The [facility] CenterComment on above:Performed By: #### CBC #### [facility] [address] [place] [address] Dr. Ricky ValenzuelaHemoglobin (Bld) [Mass/Vol]13.5 g/mMMupvbp47.0-16.0The [facility] CenterComment on above:Performed By: #### CBC #### [facility] [address] [address] [address] Ricky Adler #0.42 10e3/ulCritically high0.00-0.03The [facility] Comment on above:Performed By: #### CBC #### [facility] [address] [address] [address] Ricky Adler %3.8 %Critically high0.0-0.5The [facility] HospitalComment on above:Performed By: #### CBC #### [facility] [address] [place] [address] Dr. Ricky Rausch #3.3 103/ulNormal1.2-3.8The [facility] CenterComment on above:Performed By: #### CBC #### [facility] [address] [place] [address] Dr. Ricky Saenzhocytes/100 WBC (Bld)29.1 %Gcnaaw33.5-60.0The [facility] CenterComment on above:Performed By: #### CBC #### [facility] [address] [address] [address] [facility]coPIKE [facility] DIFF REQNONormalThe [facility] CenterComment on above: Performed By: #### CBC #### [facility] [address] [address] [address] Ricky Archer (RBC) [Entitic mass]32.4 sxLbvafx08.7-34.0The [facility] CenterComment on above:Performed By: #### CBC #### [facility] [address] [place] [address] Dr. Ricky Archer (RBC) [Mass/Vol]32.5 g/eNGmbtvs54.9-35.2The [facility] CenterComment on above:Performed By: #### CBC #### [facility] [address] [place] [address] Dr. Rikcy Archer (RBC) [Entitic vol]99.5 fLCritically high81.0-99.0The [facility] CenterComment on above:Performed By: #### CBC #### [facility] [address] [place] [address] Dr. Ricky Burnham #0.8 103/ulNormal0.3-0.8The [facility] CenterComment on above:Performed By: #### CBC #### [facility] [address] [place] [address] Dr. Ricky Kiddocytes/100 WBC (Bld)7.5 %Normal1.7-12.0The [facility] Comment on above:Performed By: #### CBC #### [facility] [address] [place] [address] Dr. Ricky Sahu #6.3 103/ulNormal1.4-6.5The [facility] CenterComment on above:Performed By: #### CBC #### [facility] [address] [place] [address] Dr. Ricky Gonzalezutrophils/100 WBC (Bld)56.7 %Adzidh38.0-75.0The [facility] CenterComment on above:Performed By: #### CBC #### [facility] [address] [place] [address] Dr. Ricky Golden mean volume (Bld) [Entitic vol]9.8 fLNormal9.5-13.5The [facility] CenterComment on above:Performed By: #### CBC #### [facility] [address] [place] [address] Dr. Ricky ValenzuelaPLT265 103/fuAtcswi438-115Duf [facility] CenterComment on above: Performed By: #### CBC #### [facility] [address] [place] [address] Dr. Ricky ValenzuelaRBC4.17 106/ulCritically low4.20-5.40The [facility] CenterComment on above:Performed By: #### CBC #### [facility] [address] [place] [address] Dr. Ricky ValenzuelaWBC11.2 103/ulCritically high4.0-11.0The [facility] HospitalComment on above:Performed By: #### CBC #### [facility] [address] [address] [address] Ricky ValenzuelaGLYCOHEMOGLOBIN A1Con 36-86-4904KEG RECOMMENDATIONSEE BELOWKnox Community HospitalCommunson healthcare [facility] on above:Result Comment: ADA RECOMMENDED LIMIT 4.0 - 6.0 ADA THERAPEUTIC TARGET < 7.0 ACTION SUGGESTED > 7.0Performed By: #### A1C ####[facility] [address] [address]Dr. Ricky ValenzuelaGlucose [Mass/Vol]183 mg/dLLima City HospitalCommunson healthcare [facility]le[facility] hospital on above:Performed By: #### A1C ####[facility] [address] [address]Dr.Yilan ValenzuelaHbA1c (Bld) [Mass fraction]8.0 % Critically high4.5-6.2The [facility] on above:Performed By: #### A1C ####[facility] [address] [address]Dr. Ricky ValenzuelaLIPID PROFILEon 68-06-6536BXJW-HDL RATIO NORMSEE BELOWLima City HospitalCommunson healthcare [facility] on above:Result Comment: 3.3 - 4.4 LOW RISK 4.4 - 7.1 AVERAGE RISK 7.1 - 11.0 MODERATE RISK >11.0 HIGH RISKPerformed By: #### CMP, LIPID #### [facility] [address] [address] [address] Ricky Garayesterol [Mass/Vol]239 mg/dLCritically high<=200[facility] on above:Performed By: #### CMP, LIPID #### [facility] [address] [address] [address] Ricky Garayesterol in HDL [Mass/Vol]36 mg/dLCritically vnf41-49Mpi [facility] on above:Performed By: #### CMP, LIPID #### [facility] [address] [address] [address] Ricky Garayesterol in LDL [Mass/Vol]164.2 mg/dLLima City HospitalComment on above:Performed By: #### CMP, LIPID #### [facility] [address] [address] [address] Ricky ValenzuelaCholesterol.total/Cholesterol in HDL [Mass ratio]6.6 {ratio} NormalThe [facility] CenterCommunson healthcare [facility] on above:Performed By: #### CMP, LIPID #### [facility] [address] [address] [address] Ricky Mahoney NORMAL> or = 60 mg/dl - LOW CARDIOVASCULAR RISK <40 mg/dl - HIGH CARDIOVASCULAR RISKNoProMedica Defiance Regional HospitalComment on above:Performed By: #### CMP, LIPID #### [facility] [address] [address] [address] Ricky Boudreaux CALC NORMALSEE BELOWLima City HospitalComment on above:Result Comment: <100 mg/dl OPTIMAL 100 - 129 mg/dl NEAR OR ABOVE OPTIMAL 130 - 159 mg/dl BORDERLINE HIGH 160 - 189 mg/dl HIGH >190 mg/dl VERY HIGH Performed By: #### CMP, LIPID #### [facility] [address] [address] [address] Ricky ValenzuelaTriglyceride [Mass/Vol]194 mg/dLCritically high<=150The [facility] CenterCommunson healthcare [facility] on above:Performed By: #### CMP, LIPID #### [facility] [address] [address] [address] Ricky ValenzuelaVLDL CALC38.8 mg/dLNoProMedica Defiance Regional HospitalComment on above: Performed By: #### CMP, LIPID #### [facility] [address] [address] [address] Ricky ValenzuelaMICSTEPHANIEALBUMIN, RAND URon 64-22-1417lYIC80.1 mg/LNormal<=30.0The [facility] CenterComment on above:Performed By: #### MALBR ####[facility] [address] [address]Dr. Ricky ValenzuelaPROF 14(COMP METB)on 60-86-6316Ivnxvhr [Mass/Vol]3.3 g/dLCritically low3.4-5.0The [facility] CenterComment on above:Performed By: #### CMP, LIPID #### [facility] [address] [place] [address] Dr. Ricky ValenzuelaAlbumin/Globulin [Mass ratio]0.8 {ratio}NormalThe [facility] CenterComment on above:Performed By: #### CMP, LIPID #### [facility] [address] [address] [address] Ricky Harris [Catalytic activity/Vol]93 U/SEphmrg32-395Ovl [facility] CenterComment on above:Performed By: #### CMP, LIPID #### [facility] [address] [place] [address] Dr. Ricky Ambriz [Catalytic activity/Vol]37 U/PPzusfb91-61Tyx [facility] CenterComment on above:Performed By: #### CMP, LIPID #### [facility] [address] [place] [address] Dr. Ricky Campbell gap [Moles/Vol]10.9 mmol/LNormalThe [facility] Comment on above:Performed By: #### CMP, LIPID #### [facility] [address] [place] [address] Dr. Ricky ValenzuelaAST [Catalytic activity/Vol]10 U/LCritically kia22-07Rcp [facility] CenterComment on above:Performed By: #### CMP, LIPID #### [facility] [address] [place] [address] Dr. Ricky ValenzuelaBilirubin [Mass/Vol]0.2 mg/dLNormal0.2-1.0The [facility] Comment on above:Performed By: #### CMP, LIPID #### [facility] [address] [place] [address] Dr. Ricky ValenzuelaCalcium [Mass/Vol]9.0 mg/dLNormal8.5-10.1The [facility] Comment on above:Performed By: #### CMP, LIPID #### [facility] [address] [place] [address] Dr. Ricky ValenzuelaChloride [Moles/Vol]100 mmol/MKjagjd55-623Ltw [facility] Comment on above:Performed By: #### CMP, LIPID #### [facility] [address] [place] [address] Dr. Ricky ValenzuelaCO2 [Moles/Vol]32.2 mmol/LCritically high21.0-32.0The [facility] CenterComment on above:Performed By: #### CMP, LIPID #### [facility] [address] [place] [address] Dr. Ricky ValenzuelaCreatinine [Mass/Vol]0.95 mg/dLNormal0.55-1.02The [facility] CenterComment on above:Performed By: #### CMP, LIPID #### [facility] [address] [place] [address] Dr. Ricky ReynosoGFR-AF MONTSERRATIAN>60Normal>=60The [facility] CenterComment on above:Performed By: #### CMP, LIPID #### [facility] [address] [place] [address] Dr. Ricky ReynosoGFR-NON AF MONTSERRATIAN>60Normal>=60The [facility] CenterComment on above:Performed By: #### CMP, LIPID #### [facility] [address] [place] [address] Dr. Ricky ValenzuelaGlobulin (S) [Mass/Vol]4.2 g/dLNormalThe [facility] CenterComment on above:Performed By: #### CMP, LIPID #### [facility] [address] [place] [address] Dr. Ricky ValenzuelaGlucose [Mass/Vol]200 mg/dLCritically xpan88-323Uzc [facility] CenterComment on above:Performed By: #### CMP, LIPID #### [facility] [address] [place] [address] Dr. Ricky ValenzuelaPotassium [Moles/Vol]4.1 mmol/LNormal3.5-5.1The [facility] Comment on above:Performed By: #### CMP, LIPID #### [facility] [address] [place] [address] Dr. Ricky ValenzuelaProtein [Mass/Vol]7.5 g/dLNormal6.4-8.2[facility] Comment on above:Performed By: #### CMP, LIPID #### [facility] [address] [address] [address] Ricky ValenzuelaSodium [Moles/Vol]139 mmol/GIbxrxq008-086You [facility] Comment on above:Performed By: #### CMP, LIPID #### [facility] [address] [address] [address] Ricky ValenzuelaUrea nitrogen [Mass/Vol]13.0 mg/dLNormal7.0-18.0The [facility] CenterComment on above:Performed By: #### CMP, LIPID #### [facility] [address] [place] [address] Dr. Ricky Alcala nitrogen/Creatinine [Mass ratio]13.7 mg/mgNormalThe [facility] CenterComment on above:Performed By: #### CMP, LIPID #### [facility] [address] [place] [address] Dr. Ricky ValenzuelaPOINT OF CARE GLUCOSEon 58-05-4262Wtidxbw [Mass/Vol]176 mg/dL Critically nmhr17-985Qap [facility] CenterComment on above:Performed By: #### POCGLUC #### [facility] [address] [place] [address] Dr. Ricky Valenzuela Vital Signs Date TimeVital SignValuePerforming JdwbzampgUptmlnse04-24-8848 12:47-0400 Diastolic blood ytwxsuhy01 mm[Hg]Ameena Vera [employer] Work Phone: [facility]10-29-2025 12:47-0400 Systolic blood mm[Hg]Ameena Vera [employer] Work Phone: [facility]10-13-2025 13:07-0400 Body .94 Khanh Vera [employer] Work Phone: [facility]10-13-2025 13:07-0400 Body mass index (BMI) [Ratio]39.9 kg/m2Lisa Pohholz [employer] Work Phone: [phone]10-13-2025 13:07-0400 Body tcubvsylfxp40.3 [degF]Ameena Aichholz [employer] Work Phone: [phone] [place], [place] [address]10-13-2025 13:07-0400 Body ufwjzu72.76 kgLisa Aichholz [employer] Work Phone: [phone])[address] [place], [place] [address]10-13-2025 13:07-0400 Diastolic blood issranvn74 mm[Hg]Ameena oPhholz [employer] Work Phone: [phone] [place], [place] [address]10-13-2025 13:07-0400 Heart dcgo213 /minLisa Aichholz [employer] Work Phone: [phone] [place], [place] [address]10-13-2025 13:07-0400 Respiratory rate18 /minLisa Aichholz [employer] Work Phone: [phone] [place], [place] [address]10-13-2025 13:07-0400 SaO2% (BldA) [Mass fraction]92 %Ameena Pohholz [employer] Work Phone: [phone] [place], [place] [address]10-13-2025 13:07-0400 Systolic blood oybanfey737 mm[Hg]Ameena Ryanholz [employer] Work Phone: [phone]09-22-2025 09:56-0400 Body .4 Carol Bennett MD Work Phone: [facility] HospitalSmkhrlrcok73-27-6540 09:56-0400Body mass index (BMI) [Ratio]40.62 kg/w3AkijcKasi Bennett MD Work Phone: [facility] HospitalJmikfklzvv03-99-7454 09:56-0400Body kgmxea76.35 kgKasi Bennett MD Work Phone: [facility] HospitalQgupvskmjn56-46-1861 09:56-0400Heart rate83 /min Kasi Bennett MD Work Phone: [facility] HospitalPbzogkoazt72-43-7373 09:56-0400Respiratory rate18 /minKasi Bennett MD Work Phone: [facility] HospitalXlkozxlfxg19-56-3282 09:56-1504QlZ3% (BldA) [Mass fraction]95 %Kasi Bennett MD Work Phone: [facility] HospitalDibpjhddgi49-91-9908 11:44-0400Body temperature 98.1 [degF]Ameena Aichholz Work Phone: [phone]09-08-2025 11:44-0400 Body qtikev25.41 kgLisa Aichholz Work Phone: [phone]09-08-2025 11:44-0400 Diastolic blood ssssxeht09 mm[Hg]Ameena Aichholz Work Phone: [phone]09-08-2025 11:44-0400 Heart rate93 /minLisa Aichholz Work Phone: [phone]09-08-2025 11:44-0400 Respiratory rate16 /minLisa Aichholz Work Phone: [phone]09-08-2025 11:44-0400 SaO2% (BldA) [Mass fraction]97 %Ameena Aichholz Work Phone: [phone]09-08-2025 11:44-0400 Systolic blood aurizosa113 mm[Hg]Ameena Aichholz Work Phone: [phone] [facility]07-10-2025 11:10-0400 Diastolic blood yazcqeyz67 mm[Hg]Ameena Aichholz [employer] Work Phone: [facility] HospitalKifjqyrcai44-04-7813 11:10-0400Systolic blood hinwwonu38 mm[Hg]Ameena Aichholz SALT MAKER Work Phone: noPhelps HealthTbjrocihyv34-02-6687 10:37-0400Body mass index (BMI) [Ratio]39.74 kg/m2Ameena Vera SALT MAKER Work Phone: noPhelps HealthQtoqntxomv28-05-4349 10:37-0400Body temperature 98.49 [degF]Ameena Vera SALT MAKER Work Phone: noPhelps HealthBovvymnoif17-04-6817 10:37-0400Body euiisu18.98 kgAmeena Vera SALT MA[employer]ER Work Phone: [facility] HospitalHbemnrlepk79-66-4827 10:37-0400Heart hltp484 /min Ameena Vera SALT MAKER Work Phone: noPhelps HealthFfprhyshij73-83-4918 10:37-0400Respiratory rate18 /minLisa Vera SALT MAKER Work Phone: [facility] HospitalHhitzqyxmo49-00-8175 10:37-3743FaT4% (BldA) [Mass fraction]93 %Ameena Vera SALT MAKER Work Phone: BLPhelps HealthHszgpawpdi62-92-4683 14:08-0400Body erwtpx610.2 Carol Bennett MD Work Phone: noPhelps HealthCroftfpzmm34-81-2433 14:08-0400Body mass index (BMI) [Ratio]39.04 kg/i0YezevKasi Bennett MD Work Phone: noPhelps HealthCxvbkdnrby25-42-2798 14:08-0400Body juynex38.25 kgKasi Bennett MD Work Phone: WJPhelps HealthSmoianvkfi93-53-4128 14:08-0400Diastolic blood coqmulgs04 mm[Hg]Kasi Bennett MD Work Phone: noPhelps HealthElufobeclz11-42-6135 14:08-0400Heart rate86 /min Kasi Bennett MD Work Phone: noPhelps HealthNlsjgpworg78-01-1652 14:08-0400Respiratory rate18 /minKasi Bennett MD Work Phone: [facility] HospitalDqrzieuokf74-76-9950 14:08-0538BdQ3% (BldA) [Mass fraction]93 %Kasi Bennett MD Work Phone: [facility] HospitalWlaazucldi31-66-3856 14:08-0400Systolic blood mm[Hg]Kasi Bennett MD Work Phone: [facility] HospitalKoorudyuvw85-70-4545 13:16-0400Body .94 [facility] 13:16-0400Body mass index (BMI) [Ratio]39.4 kg/f3RuqhkcwtuWooster [facility] Hospital04-17-2025 13:16-0400Body .8 [facility]04-08-2025 11:10-0400Body height 157.5 cmLisa Chuy SALT MA[employer]ER Work Phone: [facility] HospitalIqzyoruyyn57-01-9545 11:10-0400Body mass index (BMI) [Ratio]39.03 kg/m2Lisa oPhholz SALT MAKER Work Phone: [facility] HospitalUqhzfkmxoo99-89-8514 11:10-0400Body temperature 98.29 [degF]Ameena Chuy SALT MA[employer] Work Phone: [facility] HospitalLfcelmtyoc29-79-2010 11:10-0400Body ueujbk51.8 kg Ameena Chuy SALT [employer] Work Phone: [facility] HospitalRttpxzsadq13-86-2836 11:10-0400Diastolic blood orsfiijo59 mm[Hg]Ameena Ryanholz S[employer] Work Phone: [facility] HospitalGmpomxjtcw76-89-5442 11:10-0400Heart rate91 /min Ameena Pohdeidrez SALT MA[employer]ER Work Phone: [facility] HospitalNshodlxaim18-98-2000 11:10-0400Respiratory rate18 /minLisa Pohholz SALT MAKER Work Phone: [facility] HospitalArrivtfddo40-94-8461 11:10-8646KhN1% (BldA) [Mass fraction]96 %Ameena Ryanholz SALT MAKER Work Phone: noPhelps HealthQkemqxffso44-71-1343 11:10-0400Systolic blood evyrkmod520 mm[Hg]Ameena Vera SALT MA[employer] Work Phone: NOPhelps HealthDqunnlcreq13-52-1745 13:08-0400Body .5 cmAcrescencio Wilkerson SALT MAKER Work Phone: NOPhelps HealthMiljfappyv88-63-6737 13:08-0400Body mass index (BMI) [Ratio]39.51 kg/l4BsixyfZa Shipmanr SALT MAKER Work Phone: NOPhelps HealthXtowtvfoof64-92-7351 13:08-0400Body qecifx12.98 kgZa Shipmanr SALT MAKER Work Phone: noPhelps HealthPlcxrrqens25-61-5840 13:08-0400Diastolic blood tuhedvfp31 mm[Hg]Za Wilkerson S[employer] MA[employer]ER Work Phone: [facility] HospitalLkazxuyzpe67-37-9830 13:08-0400Heart rate96 /min Za Shipmanr SALT MAKER Work Phone: noPhelps HealthVpjtslmyph77-99-4537 13:08-2346DfY4% (BldA) [Mass fraction]93 %Za Shipmanr SALT MAKER Work Phone: noPhelps HealthIlszvebllb88-33-4129 13:08-0400Systolic blood whesymli768 mm[Hg]Za Shipmanr SALT MAKER Work Phone: [facility] HospitalUamnuyymot09-61-5637 09:40-0500Body vyciin948.5 cmSonam Drake SALT MAKER Work Phone: NOPhelps HealthEwukfjvgzc16-01-8339 09:40-0500Body mass index (BMI) [Ratio]39.51 kg/i3Pstzndsv Drake S[employer] MA[employer]ER Work Phone: [facility] HospitalPpcoydmnqn18-78-0169 09:40-0500Body temperature 97.3 [degF]Sonam Drake S[employer] MA[employer] Work Phone: [facility] HospitalZjxmhkftts85-77-7593 09:40-0500Body bkcqof00.98 kgBrittcarlene Drake S[employer] MA[employer]ER Work Phone: [facility] HospitalSdtepftkno90-66-0554 09:40-0500Diastolic blood yhbwuprt78 mm[Hg]Sonam Drake SALT MA[employer] Work Phone: [facility] HospitalTcxpptytcd02-59-4089 09:40-0500Heart rate76 /min Sonam Drake S[employer] MA[employer] Work Phone: [facility] HospitalYcwdxvfsgx87-09-1133 09:40-0500Respiratory rate16 /minBrittcarlene Drake SALT MAKER Work Phone: [facility] HospitalFuzylgvxqf27-30-7349 09:40-7747NeD4% (BldA) [Mass fraction]98 %Sonam Drake S[employer] MA[employer] Work Phone: [facility] HospitalRkdhuzmsau93-76-9946 09:40-0500Systolic blood ogqlaolv749 mm[Hg]Sonam Drake S[employer] MA[employer] Work Phone: [facility] HospitalPvasrctvzw47-87-7434 10:13-0500Body vkjnte759.5 cmKortneyany Drake SALT MA[employer]ER Work Phone: [facility] HospitalTarncgkjaj54-34-7491 10:13-0500Body mass index (BMI) [Ratio]39.51 kg/u3Wvibbcql Drake S[employer] MA[employer]ER Work Phone: [facility] HospitalEgmvfzymzt44-56-6438 10:13-0500Body temperature 97.2 [degF]Sonam Drake S[employer] MA[employer] Work Phone: [facility] HospitalRcnlkgmqgk29-93-4080 10:13-0500Body nqryyg59.98 kgBrittany Drake SALT MA[employer]ER Work Phone: [facility] HospitalLasmywsora61-53-8312 10:13-0500Diastolic blood uyrtklvk38 mm[Hg]Sonam Drake S[employer] MA[employer] Work Phone: [facility] HospitalDksxeswavl74-63-3989 10:13-0500Heart rate84 /min Sonam Drake S[employer] MA[employer] Work Phone: [facility] HospitalLpliypfxsx65-44-9841 10:13-0500Respiratory rate16 /minBrzulema Drake SALT MAKER Work Phone: [facility] HospitalTdslhesbsk51-42-2812 10:13-6917ZnH7% (BldA) [Mass fraction]96 %Sonam Riverpatrick SALT MAKER Work Phone: [facility] HospitalOarucvcwsj10-38-1408 10:13-0500Systolic blood vnzgqcpo834 mm[Hg]Sonamyazmin RiverDrake SALT MAKER Work Phone: [place] [address]Wtpzsxeeup43-90-8085 10:06-0500Body eqwqzr552.5 cmNicole Solo DO Work Phone: [place] [address]Yofotskzbi91-55-2424 10:06-0500Body mass index (BMI) [Ratio]39.14 kg/i5Amkdfv Solo DO Work Phone: [place] [address]Ubdcjrhohv56-23-7786 10:06-0500Body .07 kgNicole Solo DO Work Phone: [place] [address]Kpxdulsuea73-36-6436 10:06-0500Diastolic blood mm[Hg]Sivan Solo DO Work Phone: [place] [address]Aibwpqcxrd98-24-4804 10:06-0500Heart rate95 /min Sivan Solo DO Work Phone: [place] [address]Exxirzksfy48-73-1723 10:06-7381RtO7% (BldA) [Mass fraction]97 %Sivan Solo DO Work Phone: [place] [address]Dnybhrkidf36-71-4220 10:06-0500Systolic blood flilvbgy879 mm[Hg]Sivan Solo DO Work Phone: [place] [address]Ptjczlwohr19-12-1983 10:46-0500Body mass index (BMI) [Ratio]40.06 kg/k6Jmvgouov Drake S[employer] MA[employer]ER Work Phone: [phone] Kim StreetAftxxzyhih73-00-6010 10:46-0500Body vscryb57.34 kgBrzulema Drake SALT MAKER Work Phone: [facility] HospitalDamotwmpqd86-91-0750 10:46-0500Diastolic blood covpvypx91 mm[Hg]Sonam Drake S[employer] MA[employer] Work Phone: [facility] HospitalEdkconxwgi72-69-7400 10:46-0500Heart rate97 /min Sonam Drake [employer] Work Phone: [place] [address]Lediwtmhiu95-09-3521 10:46-3831EhZ2% (BldA) [Mass fraction]98 %Sonam Drake [employer] Work Phone: [place] [address]Aixzfhwzxd95-24-9737 10:46-0500Systolic blood wkhxvxoh71 mm[Hg]Sonam Drake S[employer] MA[employer] Work Phone: [facility] HospitalAlpeyqsbac90-06-4887 10:07-0400Body lfmrsy829.5 cmSonam Drake SALT MAKER Work Phone: [facility] HospitalAelrkaened47-77-6686 10:07-0400Body mass index (BMI) [Ratio]39.32 kg/p8Ldfafskm Drake S[employer] MAKER Work Phone: [facility] HospitalCbfxkefrdj43-82-5478 10:07-0400Body temperature 97.5 [degF]Sonam Drake S[employer] MA[employer]ER Work Phone: [facility] HospitalVmykezrmvo78-26-8845 10:07-0400Body zzznfi32.52 kgBrzulema Drake SALT MA[employer]ER Work Phone: [place] [address]Mbfjkcpwka46-09-9769 10:07-0400Diastolic blood kzwgxtyk82 mm[Hg]Sonam Drake S[employer] MA[employer]ER Work Phone: [facility] HospitalOxhsyfazso75-24-9801 10:07-0400Heart qazm045 /min Sonam Drake SALT MA[employer] Work Phone: [facility] HospitalComment on above:97% N041-94-2738 10:07-0400Systolic blood lwfyfcfy22 mm[Hg]Sonam Riverpatrick SALT MAKER Work Phone: NOPhelps HealthFavykqhplm10-31-9046 09:10-0500Body mguiec511.21 cmPkelley Hendricks Other [employer] Other 12-08-2023 09:10-0500Body mass index (BMI) [Ratio] 42.82 kg/m2Zezcnc Ruthie Other [employer] Other 12-08-2023 09:10-0500Body wnccvmfjjus65.2 [degF]Elle Ruthie Other [employer] Other 12-08-2023 09:10-0500Body skzexe527.51 kgLeeannaovidio Ruthie Other [employer] Other 12-08-2023 09:10-0500Diastolic blood wjwbewap70 mm[Hg] Elle Ruthie Other [employer] Other 12-08-2023 09:10-0500Respiratory rate18 /minElle Hendricks Other [employer] Other 12-08-2023 09:10-4512VcQ7% (BldA) [Mass fraction]97 % Elle Ruthie Other [employer] Other 12-08-2023 09:10-0500Systolic blood sdueylam930 mm[Hg] Elle Hendricks Other [employer] Other Encounters Encounter DateEncounter TypeCare ProviderFacilityStart: 12-09-2024 End: 85-60-2932azeotitbsvUcfe J Aichholz SALT MAKER-C Work Phone: [phone]-Fplrmxxen Health OrthopedicsStart: 12-09-2024 End: 63-28-9353Ikfczoq encounter procedureRobert Darren Mcgee MD-[facility] Work Phone: Start: 88-58-1203Omo-patient / Non-visitAmeena Vera NP-C-[facility] Work Phone: Start: 11-30-2024 End: 78-92-5143cfdlsvtasqRxwdnwvAustin Crowley MDFacility:PM Qasim Start: 11-23-2024 End: 19-91-8643bkceoindrlOeiu J Aichholz S[employer] MA[employer]ER-C Work Phone: [facility] Work Phone: Start: 11-23-2024 End: 37-73-0201Gouejwx encounter procedureAmeena Vera SALT MAKER-C-[facility] Juan Carlos Work Phone: Start: 11-02-2024 End: 89-95-8660Putgfwtutu Bennett MD Work Phone: noms Jason EndocrinologyStart: 11-02-2024 End: 00-06-7546Mzwrhdapolinar Bennett MD Work Phone: noms Jason EndocrinologyStart: 11-02-2024 End: 49-69-7942Bvthlr outpatient visit 25 minutesKasi Bennett MD Work Phone: noms Jason EndocrinologyComment on above:Low serum parathyroid hormone (PTH) (Primary Dx); Hypercalcemia; Vitamin D deficiency; HypomagnesemiaStart: 11-02-2024 End: 57-55-0053scurihdmhfLWDCE F SABBAGHNot AvailableStart: 17-06-4374Njx- patient / Non-visitKasi Bennett MD-[facility] Work Phone: Start: 10-26-2024 End: 92-77-8754eeyhdygsslLuoegmbAustin Crowley MDFacility:BRIANNA Tripp Start: 10-19-2024 End: 21-48-8087vgzhmgylaaKcwj J Aichholz Work Phone: [facility] Work Phone: Start: 10-19-2024 End: 16-92-7931Ojiajos encounter procedureAmeena Vera SALT MAKER-C-[facility] Work Phone: Start: 10-05-2024 End: 20-90-0006RmmbpuRsfj Naderer MD Work Phone: noms CWM FMComment on above:Other hyperlipidemiaStart: 09-29-2024 End: 75-95-8449BwgdzyUojz Aichholz SALT MAKER Work Phone: [facility] CWM FMComment on above:Lumbar back painStart: 09-23-2024 End: 88-52-9912NaowbvJhtc Aichholz SALT MAKER Work Phone: [facility] CWM FMComment on above:Diabetic polyneuropathy associated with type 2 diabetes mellitus (HCC)Start: 08-20-2024 End: 72-60-3094RwqpgkUqhc Aichholz SALT MAKER Work Phone: [facility] CWM FMComment on above:Bilateral lower extremity edema; Migraine with aura and without status migrainosus, not intractable ; Type 2 diabetes mellitus with diabetic microalbuminuria, without long-term current use of insulin (HCC); Osteoporosis, unspecified osteoporosis type, unspecified pathological fracture presenceStart: 08-20-2024 End: 74-30-1711Sjipgy outpatient visit 25 Renate Vera SALT MAKER Work Phone: [facility] CWM FMComment on above:Type 2 diabetes mellitus with diabetic microalbuminuria, without long-term current use of insulin (HCC) (Primary Dx); Essential hypertension; Morbid (severe) obesity due to excess calories (E66.01); Cigarette nicotine dependence without complication; Chronic gout of multiple sites, unspecified cause; Gastroesophageal reflux disease without esophagitis; Bilateral lower extremity edemaStart: 08-05-2024 End: 67-66-7326DuwafpKyfk Aichholz SALT MAKER Work Phone: [facility] CWM FMComment on above:Chronic gout of multiple sites, unspecified cause (Primary Dx)Type 2 diabetes mellitus with diabetic microalbuminuria, without long-term current use of insulin (HCC)Start: 08-02-2024 End: 54-50-3259XmcvteDtkv Naderer MD Work Phone: [facility] CWM FMComment on above:Lumbar back painStart: 07-29-2024 End: 35-64-6901Nlxgat Akil Bennett MD Work Phone: [facility]S ENDOCRINOLOGYStart: 07-29-2024 End: 45-70-3570Lzckwh Akil Bennett MD Work Phone: [facility] ENDOCRINOLOGYStart: 07-29-2024 End: 87-67-8859Rslcqi outpatient new 45 minutesKasi Bennett MD Work Phone: N[facility]S ENDOCRINOLOGYComment on above:Hypercalcemia (Primary Dx); Low serum parathyroid hormone (PTH); Vitamin D deficiencyStart: 07-29-2024 End: 30-86-7352etxymostkgGLQBR F SABBAGHNot AvailableStart: 07-26-2024 End: 62-56-0332DfqngnGirw Aichholz SALT MAKER Work Phone: [facility] CWM FMComment on above:Lumbar back painStart: 07-22-2024 End: 80-91-0918YurscmDhfe Naderer MD Work Phone: [facility] CWM FMComment on above:Type 2 diabetes mellitus with diabetic microalbuminuria, without long-term current use of insulin (C MS/HCC)Start: 07-14-2024 End: 27-47-4840Hfyrfu Lakshmi Vera SALT MAKER Work Phone: noms CWM FMComment on above:Low serum parathyroid hormone (PTH) (Primary Dx)Start: 07-09-2024 End: 03-73-1672Visvtbsln Result EncounterLisa Aichholz SALT MAKER Work Phone: noms External Department UnsolicitedStart: 07-09-2024 End: 50-55-1078Werxehowy Result EncounterLisa Aichholz SALT MAKER Work Phone: noms External Department UnsolicitedStart: 06-23-2024 End: 77-60-3959WxmasiXscf Aichholz SALT MAKER Work Phone: noms CWM FMComment on above:Diabetic polyneuropathy associated with type 2 diabetes mellitus (CMS/HCC)Start: 06-22-2024 End: 09-07-0581rmtjnluafkVlahdef Vytautas Giedraitis MDFacility:[facility] [place] Start: 06-11-2024 End: 48-53-6105FnfcjuJgun Aichholz SALT MAKER Work Phone: noms CWM FMComment on above:Acute non-recurrent sinusitis of other sinus (Primary Dx)Start: 06-03-2024 End: 88-62-3982Gsoeaw OnlyLisa Aichholz SALT MAKER Work Phone: noms CWM FMComment on above:Hypercalcemia (Primary Dx); Low serum parathyroid hormone (PTH)Start: 05-28-2024 End: 59-03-8743Xvvrnfo encounter procedureMartin [facility] Work Phone: Start: 05-28-2024 End: 94-53-2301Xjwagnr [facility] procedureP[facility]-Jenise [facility]rona OrthoStart: 05-28-2024 End: 17-85-5705sszufeiybsPdhmne Everardo Banks IIFacility:[facility] Hospitaltart: 05-22-2024 End: 71-13-5830Igrxcz OnlyLisa Aichholz SALT MAKER Work Phone: noms CWM FMComment on above:Hypercalcemia (Primary Dx) Start: 05-21-2024 End: 82-68-3773Skjldddam Result EncounterAmeena Vera SALT MAKER Work Phone: noms External Department UnsolicitedStart: 05-21-2024 End: 45-68-8579Ixouyewqn Result EncounterAmeena Vera SALT MAKER Work Phone: noms External Department UnsolicitedStart: 05-19-2024 End: 08-66-9098Hthfvs flowsheetAmeena Davisholz SALT MAKER Work Phone: noms CWM FMStart: 05-19-2024 End: 91-63-5229Efhtwb flowsCarlos Davisholz SALT MAKER Work Phone: noms CWM FMStart: 05-19-2024 End: 97-16-7810tnufxojygfQJYW AICHHOLZNot AvailableStart: 05-19-2024 End: 31-81-7227Pnguzh outpatient visit 25 minutesAmeena Vera SALT MAKER Work Phone: noms CWM FMComment on above:Type 2 diabetes mellitus with diabetic microalbuminuria, without long-term current use of insulin ([facility]) (Primary Dx); Morbid (severe) obesity due to excess calories ([facility]); Other hyperlipidemia; Body mass index (BMI) 39.0-39.9, adult; JANETT (obstructive sleep apnea); Bilateral lower extremity edema; Migraine with aura and without status migrainosus, not intractable ([facility]); Cigarette nicotine dependence without complication; Hypercalcemia; Essential hypertension; Elevated blood uric acid level; Lumbar back pain; Gastroesophageal reflux disease without esophagitis; Chronic gout of multiple sites, unspecified cause; Acute pain of right knee; Diabetic polyneuropathy associated with type 2 diabetes mellitus ([facility])Start: 05-06-2024 End: 08-76-3676AnsggzWwem Naderer MD Work Phone: noms CWM FMComment on above:Bilateral lower extremity edema (Primary Dx)Start: 04-21-2024 End: 02-21-5559Dtcvmy Justo Wilkerson NP Work Phone: aTRAV BELLEVUEStart: 04-21-2024 End: 72-90-1463Hkoumt Justo Wilkerson SALT MAKER Work Phone: aTRAV BELLSWATIUEStart: 04-21-2024 End: 15-88-6216whypshwdctCGEMIM GILLZACHERYNot AvailableStart: 04-21-2024 End: 42-14-9621Flnevl outpatient visit 25 minutesZa Wilkerson SALT MAKER Work Phone: aTRAV BELLEVUEComment on above:JANETT (obstructive sleep apnea) (Primary Dx); Hypersomnia; Snoring; Primary insomnia; Tobacco abuseStart: 03-30-2024 End: 20-25-9288Atpaxm Estefany Drake SALT MAKER Work Phone: NOVJ CW FMStart: 03-30-2024 End: 36-51-6588Sotsqp Estefany Drake SALT MAKER Work Phone: NOPJ CW FMStart: 03-30-2024 End: 51-11-3481Voqkvx outpatient visit 15 minutesAlicia Monroy MD Work Phone: noms SWS DERMComment on above:Hidradenitis suppurativa (Primary Dx); Lentigines; Melanocytic nevus of trunk; Congenital non-neoplastic nevus; History of basal cell carcinomaStart: 03-30-2024 End: 24-19-3112MtpiwjCeajSavannah [place] CWM FMComment on above:Type 2 diabetes mellitus with diabetic microalbuminuria, without long-term current use of insulin (CMS/HCC)Start: 03-30-2024 End: 70-29-0255Qektep outpatient visit 15 minutesSonam Drake SALT MAKER Work Phone: [facility] CWM FMComment on above:Type 2 diabetes mellitus with diabetic microalbuminuria, without long-term current use of insulin (C MS/HCC) (Primary Dx); Essential hypertension; Other hyperlipidemia (CMS/HCC); JANETT (obstructive sleep apnea); Type 2 diabetes mellitus without complication, without long-term current use of insulin ([facility])Start: 03-18-2024 End: 46-25-1484Iexfrpdyu Result EncounterGeneric External Data ProviderNOMS External Department UnsolicitedStart: 03-18-2024 End: 97-03-4089Fgefenfkw Result EncounterGeneric External Data ProviderNOMS External Department UnsolicitedStart: 03-16-2024 End: 07-86-7676WhgvmjTztkwqmg Drake SALT MAKER Work Phone: [facility] CWM FMComment on above:Gastroesophageal reflux disease without esophagitisStart: 03-09-2024 End: 46-02-9606JnelqaOvlntvjz Drake SALT MAKER Work Phone: noms CWM FMComment on above:Osteoporosis, unspecified osteoporosis type, unspecified pathological fracture presence ([facility])Start: 03-03-2024 End: 39-98-0955Dilwct flowsheetSonam Marrtrick SALT MAKER Work Phone: NOM[facility] CW FMStart: 03-03-2024 End: 23-54-6903Sdtpdt flowsheetBrraoany Drake SALT MAKER Work Phone: noms CWM FMStart: 03-03-2024 End: 86-07-7380mjsedtcoseWCEJBRCN FITZPATRICMIGUELINAot AvailableStart: 03-03-2024 End: 63-21-0785Alyhip outpatient visit 10 minutesSonam Princek SALT MAKER Work Phone: [facility] CWM FMComment on above:Upper respiratory infection with cough and congestion (Primary Dx); Lumbar back pain; Migraine with aura and without status migrainosus, not intractable ([facility]); Type 2 diabetes mellitus with diabetic microalbuminuria, without long-term current use of insulin ([facility]); Diabetic polyneuropathy associated with type 2 diabetes mellitus ([facility]); Other hyperlipidemia ([facility])Start: 01-30-2024 End: 93-40-6508Aedkgtxmc Result EncounterGeneric External Data ProviderNOMS External Department UnsolicitedStart: 01-30-2024 End: 06-57-1701Ucphjzdou Result EncounterGeneric External Data ProviderNOMS External Department UnsolicitedStart: 01-30-2024 End: 75-87-4584SqwizpZjwo [place] CWM FMComment on above:Lumbar back pain (Primary Dx); Type 2 diabetes mellitus with diabetic microalbuminuria, without long-term current use of insulin ([facility])Start: 01-14-2024 End: 28-79-1564YbsqpdZpmi [place] CWM FMComment on above:Lumbar back pain Start: 12-31-2023 End: 52-71-0951Edqjeiaqd Result EncounterBrzulema Princek SALT MAKER Work Phone: noms External Department UnsolicitedStart: 12-31-2023 End: 59-22-1180Ccgehqumf Result EncounterBrittcarlene MarrDrake SALT MAKER Work Phone: noms External Department UnsolicitedStart: 12-31-2023 End: 62-38-0987Scexjs consultation new/estab patient 60 minNicole Solo DO Work Phone: noms [place] STATE R[facility]TEComment on above:JANETT (obstructive sleep apnea) (Primary Dx); Hypersomnia; Snoring; Primary insomnia; Tobacco abuseStart: 12-31-2023 End: 44-07-5780mltysajbxaCIOEAW DANNERNot AvailableStart: 12-30-2023 End: 61-52-5307Sqcqzj flowsheetSonam Marrtrick SALT MAKER Work Phone: [facility] CWM FMStart: 12-30-2023 End: 89-12-8742Gmfdrk flowsheetBrzulema Marrtrick SALT MAKER Work Phone: [facility] CWM FMStart: 12-30-2023 End: 18-60-0261Pvblsx outpatient visit 15 minutesBrzulema Princek SALT MAKER Work Phone: [facility] CWM FMComment on above:Type 2 diabetes mellitus with diabetic microalbuminuria, without long-term current use of insulin ([facility]) (Primary Dx); Essential hypertension; Other hyperlipidemia ([facility]); Snoring; Mixed urge and stress incontinenceStart: 12-30-2023 End: 70-87-5390axnqkejpxqIDEQLGXA FITZPATRICKNot AvailableStart: 12-23-2023 End: 66-03-4261Ehbqasuka Result EncounterGeneric External Data ProviderNOMS External Department UnsolicitedStart: 12-23-2023 End: 42-39-5183Ipvridunx Result EncounterGeneric External Data ProviderNOMS External Department UnsolicitedStart: 12-17-2023 End: 61-57-7066XadprxVszf Howard MANOMS CWM FMComment on above:Migraine with aura and without status migrainosus, not intractable ([facility]); Diabetic polyneuropathy associated with type 2 diabetes mellitus ([facility])Start: 12-17-2023 End: 51-81-4926VdxmgnTdatbzeb Drake SALT MAKER Work Phone: [facility] CWM FMComment on above:Gout, unspecified cause, unspecified chronicity, unspecified siteStart: 11-04-2023 End: 58-54-5632QyjfxmXozyjh Robles MANOMS CWM FMComment on above:Gout, unspecified cause, unspecified chronicity, unspecified siteStart: 11-01-2023 End: 80-17-8174QspvhtXhfzmu Robles MANOMS CWM FMComment on above:Diabetic polyneuropathy associated with type 2 diabetes mellitus ([facility])Start: 10-17-2023 End: 23-42-6009Rtbpgifmr Result EncounterGeneric External Data ProviderNOMS External Department UnsolicitedStart: 10-17-2023 End: 03-11-3075Rcygkejjl Result EncounterGeneric External Data ProviderNOMS External Department UnsolicitedStart: 00-66-1363xpptawhydiVfnidmfp:[place] Start: 10-03-2023 End: 50-33-6249Xfxyah flowsheetBrittany Drake [employer] Work Phone: noMS CWM FMStart: 10-03-2023 End: 23-15-5659Ghvcnh flowsheetBrittany Drake [employer] Work Phone: n[facility] CW FMStart: 10-03-2023 End: 14-92-6062Jqtvml outpatient visit 25 minutesLucyzulema Vidal [employer] Work Phone: [facility] CWM FMComment on above:Essential [...] urge and stress incontinence; SnoringStart: 09-13-2023 End: 73-47-6480Xcoyxzckh Result EncounterGeneric External Data ProviderNOMS External Department UnsolicitedStart: 09-13-2023 End: 97-75-5542Ewamolhul Result EncounterGeneric External Data ProviderNOMS External Department UnsolicitedStart: 09-04-2023 End: 43-85-9972Izvirvoid Result EncounterGeneric External Data ProviderNOMS External Department UnsolicitedStart: 09-04-2023 End: 31-08-7774Zlwyaiddz Result EncounterGeneric External Data ProviderNOMS External Department UnsolicitedStart: 08-14-2023 End: 54-80-2068Itahwghib Result EncounterGeneric External Data ProviderNOMS External Department UnsolicitedStart: 08-14-2023 End: 89-28-9560Uzueouhvb Result EncounterGeneric External Data ProviderNOMS External Department UnsolicitedStart: 07-24-2023 End: 77-33-9505Ilatkvxvm Result EncounterGeneric External Data ProviderNOMS External Department UnsolicitedStart: 07-24-2023 End: 79-78-9192Sdanmaiog Result EncounterGeneric External Data ProviderNOMS External Department UnsolicitedStart: 07-03-2023 End: 43-88-2840Niocfrfdv Result EncounterGeneric External Data ProviderNOMS External Department UnsolicitedStart: 07-03-2023 End: 87-64-4533Ukamuilwj Result EncounterGeneric External Data ProviderNOMS External Department UnsolicitedStart: 06-08-2023 End: 97-40-8132Zfeuixvdh Result EncounterAnahi oSriano TARYN Work Phone: noms External Department UnsolicitedStart: 06-08-2023 End: 96-49-6573Byccwrlsp Result EncounterAnahi Soriano TARYN Work Phone: noms External Department UnsolicitedStart: 06-06-2023 End: 42-14-2854Pmumbyvwr Result EncounterGeneric External Data ProviderNOMS External Department UnsolicitedStart: 06-06-2023 End: 69-51-5452Knosuzldk Result EncounterGeneric External Data ProviderNOMS External Department UnsolicitedStart: 05-22-2023 End: 77-56-4524Qugmphlnt Result EncounterGeneric External Data ProviderNOMS External Department UnsolicitedStart: 05-22-2023 End: 76-72-5989Iisxpbtrl Result EncounterGeneric External Data ProviderNOMS External Department UnsolicitedStart: 04-30-2023 End: 13-80-3159gitqqqwzklGkpfdfxwfM[facility]field Hospital Work Phone: Start: 04-30-2023 End: 92-41-1967Rywgxnb encounter [facility] Work Phone: Start: 74-22-5465Ntbjdq Neo Connelly MD Work Phone: noms [facility] IMComment on above:Diabetic polyneuropathy associated with type 2 diabetes mellitus (CMS/HCC) (Primary Dx)Start: 03-20-2023 End: 78-70-1135Tlpeppotc Result EncounterGeneric External Data ProviderNOMS External Department UnsolicitedStart: 03-20-2023 End: 75-66-3097Dfmezzdlj Result EncounterGeneric External Data ProviderNOMS External Department UnsolicitedStart: 03-19-2023 End: 38-34-0039xamjjictcwJsbedhy Calvey [facility] Other Start: 61-51-6965Kvqyfg outpatient visit 15 minutes Ana Luisa KirstenFPG [facility] OrthopedicsStart: 01-23-2023 End: 92-19-2079pxohfkzosgNhsnqsk Calvey Other [employer] Other Start: 69-58-1393Bogank outpatient visit 15 minutes Ana Luisa GeraldoG [facility] OrthopedicsStart: 01-18-2023 End: 89-08-4577ehyivbjhedIlevyv Dymond Other [employer] Other Start: 49-92-1328Foikvu outpatient visit 15 minutes Elle HendricksFPG [facility] ClydeStart: 09-19-2022 End: 84-41-0564nqthooeybrZkgodcd Calvey Other [employer] Other Start: 29-93-8572Vnmzjnktl encounterColleen Charmaine [facility] OrthopedicsStart: 95-52-0420bypsgsqxbuUO JONATHAN HOUSEFacility:W9Jhrbm: 06-07-2022 End: 40-82-4044dvsqtcfgolUO JONATHAN HOUSEFacility:L6Tniyl: 05-02-2022 End: 25-65-4208lwazxdgsqcRtgbfrg Calvey Other [employer] Other Start: 05-45-6760Rvttfi outpatient new 30 minutes Ana Luisa GeraldoG [facility] OrthopedicsStart: 04-12-2022 End: 66-89-0788pejwhwpzfiRL JONATHAN HOUSEFacility:W1Oixhz: 03-08-2022 End: 59-83-7843ptyiyasgyfJN JONATHAN HOUSEFacility:J8Vzamo: 02-16-2022 End: 80-66-8514wafibgwsquCT JONATHAN HOUSEFacility:J3Xdmta: 02-09-2022 End: 29-09-4753hmqffwvnnmOS RICARDO HOLM .Facility:V4Ifatz: 11-16-2021 End: 19-37-6360tqfplmurrbXU JONATHAN HOUSEFacility:P2Dnqax: 11-01-2021 End: 24-74-1522vevrtfsbnlWWKS SOLIS .Facility:X0Xxais: 08-30-2021 End: 61-37-6571nsxcfxmngeUVKFM SP [facility]Start: 08-30-2021 End: 64-23-6650Wuklozjtes hospital visit by physicianSr [place] DO Work Phone: mthz LaboratoryComment on above:Routine cervical smear Start: 21-56-9823Sngujibnb for general adult medical examination without abnormal findingsDR RICARDO S HOLM .[facility]: 08-09-2021 End: 60-54-0599Dvaixnmpv for general adult medical examination without abnormal findingsDR RICARDO S HOLM .Facility:I5Vnswa: 08-09-2021 End: 58-90-4377jughpxaycrQS RICARDO S HOLM .Facility:V4Oisfp: 07-19-2021 End: 16-20-6342gsalrizgnkBDPD SOLIS .Facility:J5Uagmi: 07-05-2021 End: 53-95-3403xifcqgacfcHXEJU D [facility]ITALFac[facility]:K1Acvtv: 07-04-2021 End: 93-79-7139unefegmttwJT RICARDO S HOLM .Facility:I2Xtizp: 06-20-2021 End: 09-65-9643rriosmvcacNV RICARDO S HOLM .Facility:[address] DateProcedureProcedure DetailPerforming ClinicianStart: 33-73-7401Jgtzidpgux glycosylated f8sLfpc Chuy [employer] Work Phone: Start: 55-51-5318WJW BASIC METABOLIC PANELLisa Chuy [employer] Work Phone: Start: 08-17-2711Jpsvv radiography of pelvisStart: 40-60-0809H-ray of right knee, four viewsStart: 81-33-4460Qkosroanml examination knee 3 viewsLisa Vera [employer] Work Phone: Start: 91-56-7501RAF CBC WITH AUTO DIFFLisa Chuy SALT MAK[employer] Work Phone: Start: 24-64-3540Sjerygucqd glycosylated h7vIuec Chuy [employer] Work Phone: Start: 51-92-4892Vhrvyhplqp glycosylated y9rMayvqfknSonam Drake [employer] Work Phone: Start: 12-02-9585VP TOMOSYNTHESIS SCREENING BIGeneric External Data ProviderStart: 64-44-0372MsbszrhhoqnXgniiud ProviderStart: 57-67-1074FK FOOT LT MIN 3VGeneric External Data ProviderStart: 49-82-4422ZBH CBC WITH AUTO DIFFBrittany Vidal S[employer] Work Phone: Start: 31-61-9679XE FOOT LT MIN 3VGeneric External Data ProviderStart: 31-27-8247DL FOOT LT MIN 3VGeneric External Data Provider Start: 98-26-0878ZO FOOT LT WO CONGeneric External Data ProviderStart: 18-78-6817CX FOOT LT MIN 3VGeneric External Data ProviderStart: 75-31-3740HP FOOT LT MIN 3VGeneric External Data ProviderStart: 66-45-3792KD TIBIA FIBULA LT 2VGeneric External Data ProviderStart: 86-61-2909FG FOOT LT MIN 3VGeneric External Data ProviderStart: 58-06-1251MY FOOT LT MIN 3VGeneric External Data ProviderStart: 75-01-9644VB FOOT LT WO Felicia CENTENO Work Phone: Start: 78-66-8725OWW 12-LEADAnahi CENTENO Work Phone: Start: 95-66-8963EK LUMBAR SPINE WO CONGeneric External Data ProviderStart: 74-68-0433PD LUMBAR SPINE 6V W BENDINGGeneric External Data ProviderStart: 73-98-3334KP TOMOSYNTHESIS SCREENING BIGeneric External Data ProviderStart: 42-74-1410OKG LIPID PROFILE (FASTING)Shaikh Maricel HOLLIS Work Phone: Start: 47-74-1092JVWC LIVER Gina Connelly MD Work Phone: Start: 72-30-5298SF DEXA AXIAL SKELETONGeneric External Data ProviderStart: 54-63-0735XxdjxjuyrgwLohbzf Fawwad MD Work Phone: Start: 33-64-4899Zhckfxjcgun observation [Identifier] in Cervix by Cyto stainSr Grace DO Work Phone: Plan of Treatment DateCare ActivityDetailAuthorStart: 76-04-8688Ebpxmvetq for malignant neoplasm of colonNOMS HealthcareStart: 27-36-0550Zwqssokep for malignant neoplasm of colonNOMS HealthcareStart: 42-70-8604Ryuci screening for proteinDiabetes: Urine Protein ScreeningNOMS HealthcareStart: 05-03-2025 End: 37-71-5339Ettnjjk encounter fjwbenpiy91/23/2026 1:00 PM EDT Office Visit [facility] [address] [place] [address] Kasi Bennett MD [address] [place] [address] [facility]ocrinologyStart: 04-06-2025 End: 81-44-8742Dklvlvt encounter xhtczublm17/24/2026 1:15 PM EST Office Visit [facility] [address] [place] [address] Alicia Monroy MD [address] [place] [address] [facility]ermatologyStart: 03-30-2025 End: 45-76-8715Yilnles encounter procedureNOMS SWS DERMStart: 03-18-2025 Screening for malignant neoplasm of breastMammogramNOMS HealthcareStart: 30-67-3746Ipfmennbgl A1c measurementDiabetes: Hemoglobin B4OWNWV Healthcare Start: 35-59-9270Aiyaf screening for proteinDiabetes: Urine Protein Screening NOMS HealthcareStart: 11-23-2024 End: 25-52-8625Ejiagqk encounter mxodnnhrv40/13/2025 1:00 PM EDT Office Visit [facility] [address] [place] [address] Ameena Vera, RONALDO [address] [place] [address] NOMS [facility] FMStart: 99-91-6983Tsfcmbarew A1c measurement Diabetes: Hemoglobin C8YDEHR HealthcareStart: 11-02-2024 End: 388615-ylnewcgbfbwgya D3 [Mass/volume] in Serum or PlasmaVitamin D 25 hydroxy Total Lab Routine Low serum parathyroid hormone (PTH) Hypercalcemia Vitamin D deficiency Hypomagnesemia Expected: 11/02/2024 (Approximate), Expires: 11/02/2025[facility] HealthcareComment on above:Expected: 11/02/2024 (Approximate), Expires: 11/02/2025Start: 11-02-2024 End: 10-88-9651Zumbrmhyn [Mass/volume] in Serum or PlasmaMagnesium Lab Routine Low serum parathyroid hormone (PTH) Hypercalcemia Vitamin D deficiency Hypomag nesemia Expected: 11/02/2024 (Approximate), Expires: 11/02/2025[facility] Healthcare Work Phone: Comment on above:Expected: 11/02/2024 (Approximate), Expires: 11/02/2025Start: 11-02-2024 End: 43-02-5213Hlgjiowygm.intact and Calcium panel - Serum or PlasmaPTH, intact and calcium Lab Routine Low serum parathyroid hormone (PTH) Hypercalcemia Vitamin D deficiency Hypomagnesemia Expected: 11/02/2024 (Approximate), Expires: 11/02/2025[facility] HealthcareComment on above:Expected: 11/02/2024 (Approximate), Expires: 11/02/2025Start: 11-02-2024 End: 22-45-1688Fmtnj function panelRenal function panel Lab Routine Low serum parathyroid hormone (PTH) Hypercalcemia Vitamin D deficiency Hypomagnesemia Expected: 11/02/2024 (Approximate), Expires: 11/02/2025[facility] HealthcareComment on above:Expected: 11/02/2024 (Approximate), Expires: 11/02/2025Start: 11-02-2024 End: 82-33-2179Jvinddb encounter procedureNOMS [facility]a EndocrinologyComment on above:ArrivedStart: 10-26-2024 End: 67-52-3471Wfprvys encounter udiketciv49/15/2025 1:20 PM EDT Office Visit F[facility] [place] [address] [place] [address] Za Wilkerson NP [address] [place], [place] FARSHAD DÍAZtart: 10-19-2024 End: 70-03-7288Ljdpjvu encounter cygabzlbp86/08/2025 11:30 AM EDT Office Visit [facility] [address] [place] [address] Ameena Vera NP [address] [place] [address] [facility] FMStart: 87-42-4076Edsquiczc vaccinationGARFIELD [facility]IAL [facility]ITAL HealthcareStart: 09-30-2024 End: 16-87-2227Yhyofat encounter procedureNO ENDOCRINOLOGYStart: 09-27-2024 Hemoglobin A1c measurementDiabetes: Hemoglobin O1RLPGW HealthcareStart: 73-60-0855Akgnyhxgx for malignant neoplasm of cervixCJW MEDICAL [facility]ENTER Start: 08-20-2024 End: 66-78-9612Kxxlepq encounter /10/2025 10:30 AM EDT Office Visit [facility] [address] [place] [address] Ameena Vera NP [address] [place] [address] [facility] FMStart: 07-29-2024 End: 03-54-619764816398-gaenpbzdgielwn D3 [Mass/volume] in Serum or PlasmaVitamin D 25 hydroxy Total Lab Routine Low serum parathyroid hormone (PTH) Hypercalcemia Vitamin D deficiency Expected: 07/29/2024 (Approximate), Expires: 07/29/2025[facility] HealthcareComment on above:Expected: 07/29/2024 (Approximate), Expires: 07/29/2025Start: 07-29-2024 End: 57-36-1656Zessfvcus [Mass/volume] in Serum or PlasmaMagnesium Lab Routine Low serum parathyroid hormone (PTH) Hypercalcemia Expected: 07/29/2024 (Approx imate), Expires: 07/29/2025[facility] Healthcare Work Phone: Comment on above:Expected: 07/29/2024 (Approximate), Expires: 07/29/2025Start: 07-29-2024 End: 51-23-3357Sjvjrqnqkh.intact and Calcium panel - Serum or PlasmaPTH, intact and calcium Lab Routine Low serum parathyroid hormone (PTH) Hypercalcemia Expected: 07/29/2024 (Approximate), Expires: 07/29/2025[facility] HealthcareComment on above:Expected: 07/29/2024 (Approximate), Expires: 07/29/2025Start: 07-29-2024 End: 34-26-3826Hqvbksn encounter procedureNOI[facility] ENDOCRINOLOGYComment on above: Low serum parathyroid hormone (PTH)Start: 07-29-2024 End: 21-23-8333Iiuhp function panelRenal function panel Lab Routine Low serum parathyroid hormone (PTH) Hypercalcemia Expected: 07/29/2024 (Approximate), Expires: 07/29/2025[facility] HealthcareComment on above:Expected: 07/29/2024 (Approximate), Expires: 07/29/2025Start: 83-38-3030Tuzwe screening for protein Diabetes: Urine Protein ScreeningGARFIELD MEMORIAL [facility]ITAL HealthcareStart: 07-03-2024 End: 824303-uourwjthwdvoho D3 [Mass/volume] in Serum or PlasmaVitamin D 25 hydroxy Lab Routine Hypercalcemia Expected: 07/03/2024 (Approximate), Expires: 06/03/2025[facility] HealthcareComment on above:Expected: 07/03/2024 (Approximate), Expires: 06/03/2025Start: 07-03-2024 End: 68-20-5278Nzupg metabolic 1998 panel - Serum or PlasmaBasic metabolic panel Lab Routine Hypercalcemia Low serum parathyroid hormone (PTH) Expected: 2024 (Approximate), Expires: 06/03/2025NONH HealthcareComment on above:Expected: 07/03/2024 (Approximate), Expires: 06/03/2025Start: 07-03-2024 End: 39-05-6107Zzhibobrfi.intact [Mass/volume] in Serum or PlasmaPTH, intact Lab Routine Low serum parathyroid hormone (PTH) Expected: 07/03/2024 (Approximate), Expires: 06/03/2025[facility] Work Phone: Comment on above:Expected: 07/03/2024 (Approximate), Expires: 06/03/2025Start: 06-25-2024 End: 31-47-4802Hfkbkuo encounter procedureNOMS CWM FMStart: 05-22-2024 End: 67-85-5424Uqwpkjeycx.intact [Mass/volume] in Serum or PlasmaPTH, intact Lab Routine Hypercalcemia Expected: 05/22/2024 (Approximate), Expires: 05/22/2025 [facility] Work Phone: Comment on above:Expected: 05/22/2024 (Approximate), Expires: 05/22/2025Start: 05-19-2024 End: 347468-xoiflsapyexnco D3 [Mass/volume] in Serum or PlasmaVitamin D 25 hydroxy Lab Routine Hypercalcemia Expected: 05/19/2024 (Approximate), Expires: 05/19/2025NONH HealthcareComment on above:Expected: 05/19/2024 (Approximate), Expires: 05/19/2025Start: 05-19-2024 End: 97-71-8934GBN W Auto Differential panel - BloodCBC and differential Lab Routine JANETT (obstructive sleep apnea) Cigarette nicotine dependence without complication Expected: 05/19/2024 (Approximate), Expires: 05/19/2025NONH HealthcareComment on above:Expected: 05/19/2024 (Approximate), Expires: 05/19/2025Start: 05-19-2024 End: 20-35-1033Psdbzkbkjoybe metabolic 2000 panel - Serum or PlasmaComprehensive metabolic panel Lab Routine Other hyperlipidemia Bilateral lower extremity edema Type2 diabetes mellitus with diabetic microalbuminuria, without long-term current use of insulin ([facility]) Hypercalcemia Essential hypertension Expected: 05/19/2024 (Approximate), Expires: 05/19/2025NONH HealthcareComment on above: Expected: 05/19/2024 (Approximate), Expires: 05/19/2025Start: 05-19-2024 End: 77-36-0932Jisug 1996 panel - Serum or PlasmaLipid panel Lab Routine Other hyperlipidemia Expected: 05/19/2024 (Approximate), Expires: 05/19/2025NONH Healthcare Work Phone: Comment on above:Expected: 05/19/2024 (Approximate), Expires: 05/19/2025Start: 05-19-2024 End: 37-48-3594Nahyosvxdkjk/Creatinine panel in random UrineMicroalbumin / creatinine, urine ratio Lab Routine Type 2 diabetes mellitus with diabetic microalbuminuria, without long-term current use of insulin ([facility]) Essential hypertension Expected: 05/19/2024 (Approximate), Expires: 05/19/2025NONH HealthcareComment on above:Expected: 05/19/2024 (Approximate), Expires: 05/19/2025Start: 05-19-2024 End: 53-62-5555Tkmzddzdvz.intact [Mass/volume] in Serum or PlasmaPTH, intact Lab Routine Hypercalcemia Expected: 05/19/2024 (Approximate), Expires: 05/19/2025 NOMS HealthcareComment on above:Expected: 05/19/2024 (Approximate), Expires: 05/19/2025Start: 05-19-2024 End: 44-44-1978Itwwp [Mass/volume] in Serum or PlasmaUric acid Lab Routine Elevated blood uric acid level Expected: 05/19/2024 (Approximate), Expires: NONH HealthcareComment on above:Expected: 05/19/2024 (Approximate), Expires: 05/19/2025Start: 05-19-2024 End: 30-78-8278Fxrcxbpphm complete panel - UrineUrinalysis with reflex microscopic (clean catch) Lab Routine Type 2 diabetes mellitus with diabetic microalbuminuria, without long-term current use of insulin ([facility]) Cigarette nicotine dependence without complication Essential hypertension Elevated blood uric acid level Expected: 05/19/2024 (Approximate), Expires: 05/19/2025NOMS HealthcareComment on above:Expected: 05/19/2024 (Approximate), Expires: 05/19/2025Start: 05-19-2024 End: 98-19-5532VY Knee - right 3 ViewsXR knee 3 views right Imaging Routine Acute pain of right knee Expected: 05/19/2024 (Approximate), Expires: 05/19/2025 NOMS HealthcareComment on above:Expected: 05/19/2024 (Approximate), Expires: 05/19/2025Start: 05-19-2024 End: 99-91-6089Mymmnwv encounter tdgzdqtku46/08/2025 11:00 AM EDT Office Visit [facility] [address] [place] [address] Ameena Vera NP [address] [place] [address] [facility]OMS SHIVANI FMStart: 04-21-2024 End: 81-67-6775Rukzlgb encounter xsrnaibnl28/11/2025 1:00 PM EDT Office Visit FARSHAD TRIPP [address] [place] [address] Za Wilkerson NP [address] [place], [place] FARSHAD DÍAZtart: 03-30-2024 End: 65-20-8739Exfomkt encounter ekkqcqtzf44/17/2025 11:05 AM EST Office Visit [facility] JAGRUTI FIGUEROA [address] [place] [address] Alicia Monroy MD [address] [place] [address] NOMS SWS DERMStart: 03-26-2024 End: 56-06-1981Allsxtc encounter /13/2025 2:00 PM EST Office Visit [facility] [address] [place] [address] Sonam Drake, RONALDO [address] [place] [address] NOMS CW FMStart: 03-24-2024 End: 20-97-9250Qoomglq encounter procedureNOMERCY [facility] ROUTEStart: 48-52-7463Opinosbmv for malignant neoplasm of breastMammogramGARFIELD MEMORIAL [facility]PITAL Healthcare Start: 02-27-2024 End: 23-24-2781Xghyhnc encounter dyesrtudk67/16/2025 11:35 AM EST Office Visit [facility] [address] [place] [address] Alicia Monroy MD [address] [place] [address] NOMS SWS DERMStart: 02-25-2024 End: 32-58-1835Qxvaimy encounter xouuuodcc34/14/2025 3:30 PM EST Office Visit [facility] [address] [place] [address] Sonam Drake NP [address] [place] [address] NOMS CW FMStart: 01-10-2025Medicare Annual Wellness (AWV) Medicare Annual Wellness (AWV)NOMS HealthcareStart: 26-30-2670Bvtegbkq screening Diabetes: Retinopathy ScreeningNONH HealthcareStart: 41-52-3308Irpivnozfu A1c measurementDiabetes: Hemoglobin R6PYMIN HealthcareStart: 12-31-2023 End: 11-18-9025HprqmriinjnohzjIsbeszwmvauvmeu [facility] Routine JANETT (obstructive sleep apnea) Expected: 12/31/2023 (Approximate), Expires: 12/30/2024NO Healthcare Work Phone: comment on above:Expected: 12/31/2023 (Approximate), Expires: 12/30/2024Start: 12-31-2023 End: 18-15-9627Zegutbe encounter mkxayrrhq05/19/2024 10:00 AM EST [facility] [address] [place] [address] Sivan Banda, DO [address] [place] [address] [facility] ROUTEStart: 12-30-2023 End: 18-29-1889GES W Auto Differential panel - BloodCBC and differential Lab Routine Type 2 diabetes mellitus with diabetic microalbuminuria, without long- term current use of insulin (CMS/HCC) Essential hypertension Expected: 12/30/2023 (Approximate),Expires: 12/29/2024NONH HealthcareComment on above: Expected: 12/30/2023 (Approximate), Expires: 12/29/2024Start: 12-30-2023 End: 06-80-4616Ssguvxgyyhchf metabolic 2000 panel - Serum or PlasmaComprehensive metabolic panel Lab Routine Type 2 diabetes mellitus with diabetic microalbuminuria, without long-term current use of insulin (CMS/HCC) Essential hypertension Expected: 12/30/2023 (Approximate), Expires: 12/29/2024NONH HealthcareComment on above:Expected: 12/30/2023 (Approximate), Expires: 12/29/2024Start: 12-30-2023 End: 48-90-4744Uvwsvmmntt A1c/Hemoglobin.total in BloodHemoglobin A1c Lab Routine Type 2 diabetes mellitus with diabetic microalbuminuria, without long-term current use of insulin (CMS/HCC) Expected: 12/30/2023 (Approximate), Expires: 12/29/2024NONH HealthcareComment on above:Expected: 12/30/2023 (Approximate), Expires: 12/29/2024Start: 12-30-2023 End: 81-96-9400Vunbzpy encounter spmsnjtuc68/18/2024 10:30 AM EST Office Visit [facility] [address] [place] [address] Sonam Drake NP [address] [place] [address] NOMS CWM FMStart: 11-04-2023 End: 10-04-3502Lntamju encounter slyispexc75/23/2024 2:30 PM EDT Office Visit [facility] [place] [address] [place] [address] Sivan Banda, [address] [place] [address] [facility] ROUTEStart: 20-65-1526Bdkkoyqef vaccinationInfluenza Vaccine (#1)[facility]OMS HealthcareStart: 40-43-5951Kziffpugv vaccinationInfluenza Vaccine (#1)NOMS HealthcareComment on above:Postponed from 10/12/2022 (Patient Refused)Start: 05-02-2023 End: 97-96-5093Ewzlxkf encounter sedawfafc74/21/2024 2:00 PM EDT Office Visit [facility] [address] [place] [address] Shaikh Connelly MD [address] [place] [address] NOMS CWM IMStart: 70-01-6127Upfzvyovtg A1c measurement Diabetes: Hemoglobin V4LTBEH HealthcareStart: 09-04-2022 End: 33-85-4204Eszxpqf encounter csgnkwqyl44/25/2023 Office Visit Obstetrics and Gynecology Radha Barclay, [place] - [place] [address] [place] [address] [facility] OBSTETRICS & [facility]ECOLOG[facility]art: 10-19-5986Zyofdstlc vaccinationFlu vaccine (#1)[facility]Start: 43-81-2354Vfmhcnodn for malignant neoplasm of breastBreast cancer screenPoplar Springs Hospitalart: 10-21-2013 Shingles vaccine (1 of 2)Shingles vaccine (1 of 2)[facility]art: 23-45-8052Rixkffncl for malignant [facility] Start: 80-95-9100Kruft panelLipidsCJW MEDICAL CENTERStart: 10-21-1998 Diabetes screenDiabetes screenCJW MEDICAL CENTERStart: 61-78-2192Ltmbaosyo for malignant neoplasm of cervixPoplar Springs Hospitalart: 10-21-1982 DTaP/Tdap/Td vaccine (1 - Tdap)DTaP/Tdap/Td vaccine (1 - Tdap)[facility]art: 50-58-9991Ivmef screening for proteinDiabetes: Urine Protein ScreeningPike County Memorial HospitalStart: 39-79-0340Pntcaesux C screeningHepatitis C screen [facility]art: 86-46-2353PVF screeningHIV [facility] Centerart: 24-12-3397Zjacvgmhsf ScreenDepression [facility] Centerart: 05-56-0905URSRL-19 Vaccine (#1)COVID-19 Vaccine (#1)[facility] Hospitalart: 15-68-4279Dbmgykfdf for malignant neoplasm of colonPike County Memorial Hospital End: 71-00-5176Srspbchkksegb procedure, preparation of smear, genital sourcePAP SMEAR Lab Routine Routine cervical smear 1 Occurrences starting 08/30/2021 until [facility] Work Phone: Comment on above:1 Occurrences starting 08/30/2021 until 08/30/2021Microalbumin/Creatinine panel in random UrineMicroalbumin / creatinine urine ratio Lab Routine Type 2 diabetes mellitus with diabetic microalbuminuria, without long-term current use of insulin ([facility]) Essential hypertension Ordered: 12/30/2023[facility] Work Phone: Comment on above:Ordered: 4Patient Education Low back pain in adultsDelaware County Hospital Work Phone: xr Wrist - left GE 3 [facility] Immunizations Immunization DateImmunizationNotesCare [id number], injectable, quadrivalent, preservative [facility] [id number] virus vaccine, unspecified formulationSonam Drake NP Work Phone: [facility] Payers DatePayer CategoryPayerPolicy [id number] Health Insurance [id number] [id number] [id number] 2.[id number] 2.840.1.111136.3.57[id number] 2.840.1.051344.3.579.[id number] 2.840.1.174434.3.579.2.19535-08-5969Fyhmbzg9688335 2.840.1.950724.3.579.2.49856-18-9983Qbrnyxh0773651 2.16.840.1.737476.3.579.2.48490-12-0189Hoxflvq1577295 2.16.840.1.406908.3.579.2.54494-82-4361Magkegf1744328 2.16.840.1.389671.3.579.2.19351-87-2610Iwebcei4002347 2.16.840.1.678365.3.579.2.99356-24-3604Ujcoxae7012439 2.16840.1.949617.3.579.2.79601-17-8149Bxlswdq4811990 2.840.1.814709.3.579.2.79192-06-9942Cpocfsn7106753 2.840.1.036269.3.579.2.60410-93-2804Iixbasp1715571 2.840.1.617947.3.579.2.95405-14-9830Fehzulx3024864 2.840.1.371094.3.579.2.72514-78-0762Wjdfwzn9817739 2.840.1.468713.3.579.2.68387-43-3381Zhpxvbh2923122 2.840.1.086445.3.579.2.70377-82-0629Aqvcowa1610442 2.840.1.884160.3.579.2.41397-59-2804Ukbjgjz93142224 2.840.1.772533.3.579.2.576420-02-0181Ezlmuet61809818 2.16840.1.132292.3.579.2.788073-78-3943Qqwvtbk04586807 2.16840.1.146536.3.579.2.957630-36-6437Nbftguk6990174 2.16.840.1.165839.3.579.2.128835-23-2587Knpukip7428859 2.16.840.1.711584.3.579.2.186040-73-7490Lseggxv0956813 2.16.840.1.416514.3.579.2.480131-89-0483Ksgpeqt7403578 2.16.840.1.415049.3.579.2.396481-80-1817Trdkumn2588297 2.16.840.1.670100.3.579.2.343317-50-0366Gpdqyqh0736993 2.840.1.061105.3.579.2.106239-76-7099Kzaicna4886451 2.840.1.762457.3.579.2.063918-20-3916Vbgsahq461481382 2.840.1.553259.3.579.2.54057-33-7059Xfrmobe817093944 2..840.1.217811.3.579.2.34035-84-9922Hyxxsgf476174532 2.16.840.1.707555.3.579.2.196 1960Medicare1NP7T58PM49 1.2.840.582643.1.13.239.2.7.3.453003.93762-11-3483Mnqujvb362027031 1.2.840.464533.1.13.239.2.7.3.761773.68954-02-9138Eebsdfp59308340 2.16.840.1.9[id number] kz436242-1589-646k-uj5e-h08ip5555x97Oqfqbwh99778130 2.16840.1.112505.3.579.2.531 Social History DateTypeDetailFacilityStart: 08-30-2021 End: 24-04-7025Gxbcohc smoking status NHISSmokes tobacco dailyA[facility] [employer] [employer] Phone: History of tobacco useCigarette SmokerAURORA EAST HOSPITAL [employer] Phone: start: 08-30-2021 End: 79-74-0120Gzjkyyb use and exposureSmokeless tobacco non-userAURORA EAST [facility]OSPITAL [employer] Phone: start: 33-09-2559Iiabmcz intakeCurrent drinker of alcohol (finding)[facility]ENTERGoodClic Phone: start: 52-92-4522Dgswebb SDOH Alcohol Comment occasionalAURORA EAST HOSPITAL [employer] Phone: start: 12-46-9225Qmc Assigned At [facility] HospitalNot on fileAUR[facility]A [facility] [employer] Work Phone: start: 08-20-2021 End: 75-57-0855Hqzqpygi to SARS-CoV-2 (event)Not sureAURORA EAST HOSPITAL [employer] Start: 02-25-2023 End: 23-17-5328Jrd Assigned At [facility] HealthcareStart: 01-29-2023 End: 07-61-5023Wnppdkd smoking status NHISEx-smokerNONH HealthcareHistory of tobacco useCurrent smokerNONH HealthcareStart: 01-29-2023 End: 68-54-3726Iguykaljky smoked current (pack per day) - Reported0.5NONH HealthcareStart: 02-25-2023 End: 82-16-8023Iefuhxa intakeLifetime non-drinker (finding)NOM HealthcareStart: 51-21-5808Xag Assigned At [facility] HospitalHistory of tobacco usePassive smokerNOMS HealthcareStart: 40-21-5654Lcz often do you need to have someone [...] the time - these days [OSQ]To some extentNONH HealthcareStart: 19-31-2661HjnFowthf (finding)[facility] Medical Equipment Procedure CodeEquipment CodeEquipment Original TextEquipment IdentifierDates [id number]: 06-08-2021 End: 04-21-2024 Functional Status LqwtTlmfvyksnyWsefxcGqbummym78-33-0835Ttripaa Health Questionnaire 2 item (PHQ- 2) [Reported][facility] HospitalHchzkpjciw84-91-2589Wivdh score [AUDIT-C]1 10/02/2023 11:47 AM EDT Mychart, GenericNOPhelps HealthLooyutguno46-55-4307Aif often do you have a drink containing alcohol?Monthly or less 10/02/2023 11:47 AM EDT Mychart, Generic Monthly or lessNOPhelps HealthXgrgkgklce92-99-3685Hhm many standard drinks containing alcohol do you have on a typical day?1 or 2 10/02/2023 11:47 AM EDT Mychart, Generic 1 or 2NOMS Rwydnexugq97-26-4654Nyx often do you have 6 or more drinks on 1 occasion?Never 10/02/2023 11:47 AM EDT Mychart, Generic NeverNOPhelps Health 46-97-0024Sahaqun Health Questionnaire 2 item (PHQ-2) [Reported][facility] 33-87-8925Zrikctx Health Questionnaire 2 item (PHQ-2) [Reported][facility] 85-15-0126Uadjgxp Health Questionnaire 2 item (PHQ-2) [Reported][facility] 20-20-3348Znedymo Health Questionnaire 2 item (PHQ-2) [Reported][facility] Clinical Notes 06-20-2021 to 11-02-2024 Note Date & EdfhXkcqBlarskxv05-58-4731 History of Present illness Narrative* Ahmad F [...] MORE THAN 3 TABLETS DAILY Continuous Glucose Lining Mechanic (Dexcom G7 Lining Mechanic) device 1 each, Does not apply, Continuous [...] 6 months (around 05/02/2025). documented in this encounterPike County Memorial HospitalFwjbqykczz64-09-9129 Evaluation note* Diagnosis Onset Date Resolution Status [...] acuteOctober 2024 1:05pmWrist pain, leftacuteOctober 2024 1:05pm [facility] Work Phone: 1(203) 116-901209-08-2025 Evaluation note* Diagnosis Onset Date Resolution Status [...] Primary osteoarthritis of right kneeacuteOctober 2024 11:33am [facility] Work Phone: [phone]) 726-291607-10-2025 History of Present illness Narrative* Ameena Vera [...] 6.3%, 94% TIR , 4% high 30 bjx582, 6.3%m 93% TIR, and 5% high, 1 [...] MORE THAN 3 TABLETS DAILY Continuous Glucose Lining Mechanic (Dexcom G7 Lining Mechanic) device 1 each, Does not apply, Continuous [...] without long-term current use of insulin ([facility]) - Primary Check blood sugars [...] of the risks of continued smoking: stroke, UT, all forms of cancer, lung disease, and [...] of the risks of continued smoking: stroke, UT, all forms of cancer, lung disease, and [...] legs Current meds: none documented in this [facility]07-10-2025 Telephone encounter Note* Telephone Encounter - Ameena Vera NP - 08/20/2024 11:19 AM EDT Please call [facility] [place] for copy of diabetic eye exam [place] [facility] Uzlvikdrql92-47-1842 Miscellaneous Notes* Telephone Encounter - Ameena Vera NP - 08/20/2024 11:19 AM EDT Please call [facility] in [place] for copy of diabetic eye exam [place] documented in this [facility]07-10-2025 Instructions* Patient Instructions* Ameena Vera NP - 08/20/2024 10:30 AM EDT Furosemide every other day 1/2 tablet documented in this [facility]06-18-2025 History of Present illness Narrative* [...] MORE THAN 3 TABLETS DAILY Continuous Glucose Lining Mechanic (Dexcom G7 Lining Mechanic) device 1 each, Does not apply, Continuous [...] 2 months (around 09/28/2024). [facility] Jlujhqgfmg37-74-4359 Evaluation note* Diagnosis Onset Date Resolution Status Admit Date Primary osteoarthritis of right knee acuteApril 2024 12:55pm [facility] Work Phone: 1(371) 447-871304-11-2025 History of Present illness Narrative* Ameena Vera NP - 05/22/2024 7:25 AM EDT par documented in this encounterPike County Memorial HospitalMvabnbredo30-74-0337 History of Present illness Narrative* Ameena Vera [...] orthopedic surgeon in the past back in [place] for that knee however she does not [...] orthopedic surgeon in the past back in [place] for that knee however she does not [...] MORE THAN 3 TABLETS DAILY Continuous Glucose Lining Mechanic (Dexcom G7 Lining Mechanic) device 1 each, Does not apply, Continuous [...] microalbuminuria, without long-term current use of insulin ([facility]) Check blood sugars daily, notify [...] aura and without status migrainosus, not intractable ([facility]) Current meds: maxalt, depakote Other [...] of the risks of continued smoking: stroke, UT, all forms of cancer, lung disease, and [...] of the risks of continued smoking: stroke, UT, all forms of cancer, lung disease, and [...] microalbuminuria, without long-term current use of insulin ([facility]/HCC) Check blood sugars daily, notify if <70 [...] that supplies your machine and tubing/filters etc: [facility] Doctor that manages your JANETT: Dr Banda documented in this [facility]04-08-2025 Instructions* Patient Instructions* Ameena Vera NP - 05/19/2024 11:00 AM EDT Fasting labs Get xray knee Referral to Dr Darren Orona documented in this [facility]02-17-2025 Telephone encounter Note* Telephone Encounter - Jolly Castaneda MA - 03/30/2024 11:44 AM EST Pt's sensor fell off, and she needs them refilled please [facility] HospitalHyrldardek89-22-3043 Miscellaneous Notes* Telephone Encounter - Jolly Castaneda MA - 03/30/2024 11:44 AM EST Pt's sensor fell off, and she needs them refilled please documented in this encounterPike County Memorial HospitalNhwrjlcffc35-73-0381 History of Present illness Narrative* Alicia Monroy [...] Examined Right arm Examined Patient wearing nail somali, Denies dark streaks under finger nails, Denies [...] 1 year skin check documented in this encounterPike County Memorial HospitalHgbaukwpqw51-17-4884 History of Present illness Narrative* Sonam Drake [...] microalbuminuria, without long-term current use of insulin ([facility]) Currently taking Metformin Bid and [...] microalbuminuria, without long-term current use of insulin ([facility]) - Primary Currently taking Metformin [...] (Hb A1C) docked device (Completed) Other hyperlipidemia (CMS/[facility]) Crestor 20mg Denies myalgias Continue [...] complication, without long-term current use of insulin ([facility]) documented in this encounterPike County Memorial HospitalZkcsbfhazt15-52-9595 Instructions* Patient Instructions* Sonam Drake NP - [...] carbohydrates, and simple sugars. documented in this encounterPike County Memorial HospitalNdhcfgokpt39-89-2832 History of Present illness Narrative* Sonam Drake [...] microalbuminuria, without long-term current use of insulin ([facility]) Relevant Medications metFORMIN (Glucophage) 500 MG tablet Continuous Glucose Lining Mechanic (Dexcom G7 Lining Mechanic) device Continuous Glucose Sensor (Dexcom G7 Sensor) [...] aura and without status migrainosus, not intractable ([facility]) Relevant Medications divalproex (Depakote) 500 MG EC tablet Other hyperlipidemia ([facility]) Relevant Medications rosuvastatin (Crestor) 20 MG tablet Lumbar back pain Relevant Medications diclofenac (Voltaren) 75 MG EC tablet Other Visit Diagnoses Diabetic polyneuropathy associated with type 2 diabetes mellitus ([facility]) Relevant Medications pregabalin (Lyrica) 75 MG capsule documented in this [facility]01-21-2025 Instructions* Patient Instructions* Sonam Drake [...] 1500 calories per day. documented in this [facility]12-19-2024 Telephone encounter Note* Telephone Encounter - Jolly Castaneda MA - 01/30/2024 10:38 AM EST GIOVANNA:12/30/2023 NOV:03/26/2024 [facility] HospitalGhvlcpeqvs59-79-7834 Miscellaneous Notes* Telephone Encounter - Jolly Castaneda MA - 01/30/2024 10:38 AM EST GIOVANNA:12/30/2023 NOV:03/26/2024 documented in this encounterPike County Memorial HospitalJvwhsrdpna25-01-7954 Telephone encounter Note* Telephone Encounter - Jolly Castaneda MA - 01/14/2024 8:34 AM EST GIOVANNA:12/30/2023 NOV:03/26/2023 [facility] Uqijppjxya74-34-2938 Miscellaneous Notes* Telephone Encounter - Jolly Castaneda MA - 01/14/2024 8:34 AM EST GIOVANNA:12/30/2023 NOV:03/26/2023 documented in this [facility]11-19-2024 History of Present illness Narrative* Sivan Banda DO - 12/31/2023 10:00 AM EST Images from the original note were not included. No chief complaint on file. Subjective SLEEP CONSULT REFERRAL: Snoring, concern for JANETT, needing sleep study - labs @ [facility]; referral received from Sonam Drake [...] was counseled on the risks of stroke, UT, and sudden with JANETT, along with the [...] to clinic: 2 months documented in this encounterPike County Memorial HospitalOrfffdangq86-40-2484 History of Present illness Narrative* Sonam Drake [...] ALBUMIN GLOBULIN RATIO 0.8 Resulting Agency [facility] DMII: Metformin Bid and Ozempic Most [...] JANETT. First appointment tomorrow. documented in this [facility]11-18-2024 Instructions* Patient Instructions* Sonam Drake NP - 12/30/2023 10:30 AM EST FASTING labs ordered. Nothing to eat or drink for 12 hours prior to blood draw. Water and black coffee ok. Call if you need anything! documented in this [facility]11-05-2024 Telephone encounter Note* Telephone Encounter - Jolly Castaneda MA - 12/17/2023 3:39 PM EST GIOVANNA:10/03/2023 NOV:12/30/2023 [facility] Fqdxzmaiit61-45-9313 Miscellaneous Notes* Telephone Encounter - Jolly Castaneda MA - 12/17/2023 3:39 PM EST GIOVANNA:10/03/2023 NOV:12/30/2023 documented in this encounterPike County Memorial HospitalMetpulwbov98-84-8675 History of Present illness Narrative* Sonam Drake NP - 10/03/2023 10:57 AM EDTAssociated Problem(s): Snoring Screening for JANETT- Referral sent to [facility] * Sonam Drake NP - 10/03/2023 10:35 [...] microalbuminuria, without long-term current use of insulin ([facility]) Metformin Bid and Ozempic Most [...] microalbuminuria, without long-term current use of insulin ([facility]) Metformin Bid and Ozempic Most [...] for JANETT- Referral sent to [facility] Other Visit Diagnoses Type 2 diabetes mellitus without complication, without long-term current use of insulin (CMS/HCC) Relevant Medications semaglutide (Ozempic, 1 MG/DOSE,) 4 MG/3ML solution pen-injector Diabetic polyneuropathy associated with type 2 diabetes mellitus (CMS/HCC) Relevant Medications pregabalin (Lyrica) 75 MG capsule documented in this encounterPike County Memorial HospitalIozvxtqyip44-93-1474 Instructions* Patient Instructions* Sonam Drake NP - [...] if you need anything! documented in this encounterPike County Memorial HospitalZyzwksnxxa35-66-5461 Evaluation note* Encounter Date Diagnosis Assessment Notes [...] M25.531) Mar,Left hand pain (ICD-10 - M79.642) [facility] Other 12-13-2023 Evaluation note* Encounter Date Diagnosis [...] noted. Patient will f/u in 4 weeks. [facility] Other 12-08-2023 Evaluation note* Encounter Date Diagnosis [...] left hand x-ray that was performed at [facility] which revealed degenerative changes in the hand as well as a remote avulsion fracture of the thumb. Patientstates her family doctor is treating her for gout in her hand. Jan,History of gout (ICD-10 - Z87.39) Jan,OtherGout material was printed [facility] Other 08-09-2023 Evaluation note* Encounter Date Diagnosis Assessment Notes Treatment Notes Treatment Clinical Notes Sep, Right wrist pain (ICD-10 - M25.5 31) [facility] Other 04-27-2023 NoteCONSULTATION CONSULTATION DATE: 06/07/2022 TO: [...] our patients to inform us about any txcy-pvz-elsnwms medications or herbal remedies/nutritional supplements/alternative remedies. 2. [...] treatment options with their primary care provider.[facility] CenterDjbuazbj13-41-0885 Evaluation note * Encounter Date Diagnosis Assessment [...] understanding and is agreeable to treatment plan. [facility] Other 01-26-2023 NoteCONSULTATION PROCEDURE DATE: 03/08/2022 PREOPERATIVE [...] will be followed up in the clinic.[facility] CenterYxckbovp31-41-4329 NotePROCEDURE: XR KNEE LT 4V or > [...] authenticated by: PATTIE SALTER Date: 2022-02-16 11:29[facility] CenterElbdoldr25-95-9413 NoteCONSULTATION CONSULTATION DATE: 02/09/2022 HISTORY OF PRESENT [...] office today. Patient agrees with this plan.[facility] CenterWpzbwmwy80-11-3458 NotePROCEDURE: XR WRIST RT MIN 3 V COMPARISON: None. HISTORY: Injury of right wrist FINDINGS: BONES:No acute fracture or dislocation. Corticated bone fragment identified along the first carpometacarpal joint [degenerative in nature SOFT TISSUES:Moderate diffuse soft tissue swelling EFFUSION:None visible. OTHER: Negative. IMPRESSION: Soft tissue swelling, no acute fracture Electronically authenticated by: RYAN WANG Date: 2021-11-16 18:59[facility]09-21-2022 NoteCONSULTATION CONSULTATION DATE: 11/01/2021 HISTORY OF [...] otherwise indicated. Patient agrees with this plan.[facility] CenterPqlttvhc87-41-3668 NoteCONSULTATION PROCEDURE DATE: 11/01/2021 PRE AND POSTOPERATIVE [...] will be followed up in the clinic.[facility] CenterIneulxux76-67-5532 NoteCONSULTATION PROCEDURE DATE: 08/09/2021 PREOPERATIVE DIAGNOSIS: Bilateral [...] will be followed up in the clinic. [facility] Signed and Approved by: CRYS PIERCE . 08/10/2021 13:37:00[facility] CenterEkfeuooc24-74-0497 NoteCONSULTATION CONSULTATION DATE: 07/19/2021 HISTORY OF PRESENT [...] injections. Patient acknowledges and all questions answered. [facility] Signed and Approved by: CRYS PIERCE . 07/20/2021 10:33:00[facility]05-25-2022 NotePROCEDURE: XR FOOT RT MIN 3 [...] by: PATTIE SALTER Date: 2021-07-05 11:11[facility]05-10-2022 NoteCONSULTATION CONSULTATION DATE: 06/20/2021 CHIEF COMPLAINT: [...] like to proceed. CC: Jonathan Bean M.D. [facility] Signed and Approved by: DR RICARDO HOLM . 06/27/2021 10:40:00[facility] HospitalEvaluation [facility]* Diagnosis Routine cervical smear Screening for malignant neoplasm of the cervix documented in this encounter [facility] Work Phone: evaluation note* Diagnosis Diabetic polyneuropathy associated with type 2 diabetes mellitus (CMS/HCC)- Primary documented in this encounter [facility] HealthcareEvaluation noteNo assessment information availableDelaware County Hospital Work Phone: Evaluation note* Diagnosis Encounter [...] diabetes mellitus (CMS/HCC) documented in this encounter [facility] HealthcareEvaluation note* Diagnosis Encounter for screening [...] chronicity, unspecified site documented in this encounter [facility] HealthcareEvaluation note* Diagnosis Encounter for screening [...] complication, without long-term current use of insulin ([facility]) Diabetic polyneuropathy associated with type 2 diabetes mellitus ([facility]/HCC) Mixed urge and stress incontinence Mixed incontinence urge and stress (male)(female) Snoring Other dyspnea and respiratory abnormality Encounter for long-term (current) use of high-risk medication Encounter for long-term (current) use of other medications Type 2 diabetes mellitus with diabetic microalbuminuria, without long-term current use of insulin ([facility])- Primary Essential hypertension Unspecified essential hypertension Other hyperlipidemia (CMS/[facility]) Snoring Other dyspnea and respiratory abnormality Mixed urge and stress incontinence Mixed incontinence urge and stress (male)(female) JANETT (obstructive sleep apnea)- Primary Obstructive sleep apnea (adult) (pediatric) Hypersomnia Hypersomnia, unspecified Snoring Other dyspnea and respiratory abnormality Primary insomnia Persistent disorder of initiating or maintaining sleep Tobacco abuse Tobacco use disorder documented in this encounter [facility] HealthcareEvaluation note* Diagnosis Encounter for screening mammogram for breast cancer- Primary Encounter for screening for malignant neoplasm of colon Type 2 diabetes mellitus without complication, without long-term current use of insulin ([facility]) Upper respiratory tract infection, unspecified type URTI (acute upper respiratory infection) Acute upper respiratory infections of unspecified site Migraine with aura and without status migrainosus, not intractable (CMS/HCC)- Primary Type 2 diabetes mellitus without complication, without long-term current use of insulin ([facility]/HCC) Morbid (severe) obesity due to excess calories [...] with routine healing, subsequent encounter Other hyperlipidemia ([facility]) Hyperuricemia Other abnormal blood chemistry Osteoporosis, unspecified osteoporosis type, unspecified pathological fracture presence (CMS/HCC) Diabetic polyneuropathy associated with type 2 diabetes mellitus (CMS/HCC) Gastroesophageal reflux disease without esophagitis Esophageal reflux Migraine with aura and without status migrainosus, not intractable ([facility]) Hospital discharge follow-up Other follow-up examination Type 2 diabetes mellitus with diabetic microalbuminuria, without long-term current use of insulin ([facility]/HCC)- Primary Other hyperlipidemia (CMS/HCC) Essential hypertension Unspecified essential hypertension Bilateral lower extremity edema Lumbar back pain- Primary Lumbago Hospital discharge follow-up Other follow-up examination Essential hypertension- Primary Unspecified essential hypertension Type 2 diabetes mellitus with diabetic microalbuminuria, without long-term current use of insulin ([facility]/HCC) Morbid (severe) obesity due to excess calories (E66.01) Other hyperlipidemia (CMS/HCC) Lumbar back pain Lumbago Type 2 diabetes mellitus without complication, without long-term current use of insulin ([facility]) Diabetic polyneuropathy associated with type 2 diabetes mellitus ([facility]/HCC) Mixed urge and stress incontinence Mixed incontinence urge and stress (male)(female) Snoring Other dyspnea and respiratory abnormality Encounter for long-term (current) use of high-risk medication Encounter for long-term (current) use of other medications Type 2 diabetes mellitus with diabetic microalbuminuria, without long-term current use of insulin ([facility])- Primary Essential hypertension Unspecified essential hypertension Other hyperlipidemia ([facility]) Snoring Other dyspnea and respiratory abnormality Mixed urge and stress incontinence Mixed incontinence urge and stress (male)(female) documented in this encounter [facility] HealthcareEvaluation note* Diagnosis Encounter for screening mammogram for breast cancer- Primary Encounter for screening for malignant neoplasm of colon Type 2 diabetes mellitus without complication, without long-term current use of insulin ([facility]) Upper respiratory tract infection, unspecified [...] microalbuminuria, without long-term current use of insulin ([facility]) Morbid (severe) obesity due to excess calories (E66.01) Other hyperlipidemia (CMS/HCC) Lumbar back pain Lumbago Type 2 diabetes mellitus without complication, without long-term current use of insulin ([facility]) Diabetic polyneuropathy associated with type 2 diabetes mellitus (CMS[facility]) Mixed urge and stress incontinence [...] complication, without long-term current use of insulin ([facility]) Upper respiratory tract infection, unspecified type URTI (acute upper respiratory infection) Acute upper respiratory infections of unspecified site Migraine with aura and without status migrainosus, not intractable ([facility])- Primary Type 2 diabetes mellitus without complication, without long-term current use of insulin ([facility]/HCC) Morbid (severe) obesity due to excess calories [...] with routine healing, subsequent encounter Other hyperlipidemia ([facility]) Hyperuricemia Other abnormal blood chemistry Osteoporosis, unspecified osteoporosis type, unspecified pathological fracture presence ([facility]) Diabetic polyneuropathy associated with type 2 diabetes mellitus ([facility]) Gastroesophageal reflux disease without esophagitis [...] without long-term current use of insulin (CMS/[facility])- Primary Essential hypertension Unspecified essential hypertension Other hyperlipidemia (CMS/HCC) Snoring Other dyspnea and respiratory abnormality Mixed urge and stress incontinence Mixed incontinence urge and stress (male)(female) Lumbar back pain- Primary Lumbago Type 2 diabetes mellitus with diabetic microalbuminuria, without long-term current use of insulin ([facility]/HCC) documented in this encounter [facility] HealthcareEvaluation note* Diagnosis Encounter for screening [...] microalbuminuria, without long-term current use of insulin ([facility]/HCC)- Primary Essential hypertension Unspecified essential hypertension Other [...] Other hyperlipidemia (CMS/HCC) documented in this encounter [facility] HealthcareEvaluation note* Diagnosis Encounter for screening [...] with routine healing, subsequent encounter Other hyperlipidemia ([facility]) Hyperuricemia Other abnormal blood chemistry Osteoporosis, unspecified osteoporosis type, unspecified pathological fracture presence ([facility]) Diabetic polyneuropathy associated with type 2 diabetes mellitus (CMS/HCC) Gastroesophageal reflux disease without esophagitis Esophageal reflux Migraine with aura and without status migrainosus, not intractable ([facility]) Hospital discharge follow-up Other follow-up [...] complication, without long-term current use of insulin ([facility]) Diabetic polyneuropathy associated with type 2 diabetes mellitus ([facility]/HCC) Mixed urge and stress incontinence Mixed incontinence [...] fracture presence (CMS/HCC) documented in this encounter [facility] HealthcareEvaluation note* Diagnosis Encounter for screening mammogram [...] esophagitis Esophageal reflux documented in this encounter [facility] HealthcareEvaluation note* Diagnosis Encounter for screening [...] with routine healing, subsequent encounter Other hyperlipidemia ([facility]) Hyperuricemia Other abnormal blood chemistry Osteoporosis, unspecified osteoporosis type, unspecified pathological fracture presence ([facility]) Diabetic polyneuropathy associated with type 2 diabetes mellitus ([facility]) Gastroesophageal reflux disease without esophagitis Esophageal reflux Migraine with aura and without status migrainosus, not intractable ([facility]) Hospital discharge follow-up Other follow-up examination Type 2 diabetes mellitus with diabetic microalbuminuria, without long-term current use of insulin ([facility])- Primary Other hyperlipidemia ([facility]) Essential hypertension Unspecified essential hypertension Bilateral lower extremity edema Lumbar back pain- Primary Lumbago Hospital discharge follow-up Other follow-up examination Essential hypertension- Primary Unspecified essential hypertension Type 2 diabetes mellitus with diabetic microalbuminuria, without long-term current use of insulin ([facility]) Morbid (severe) obesity due to excess calories (E66.01) Other hyperlipidemia ([facility]) Lumbar back pain Lumbago Type 2 diabetes mellitus without complication, without long-term current use of insulin ([facility]) Diabetic polyneuropathy associated with type 2 diabetes mellitus ([facility]) Mixed urge and stress incontinence Mixed incontinence urge and stress (male)(female) Snoring Other dyspnea and respiratory abnormality Encounter for long-term (current) use of high-risk medication Encounter for long-term (current) use of other medications Type 2 diabetes mellitus with diabetic microalbuminuria, without long-term current use of insulin ([facility])- Primary Essential hypertension Unspecified essential hypertension Other hyperlipidemia ([facility]) Snoring Other dyspnea and respiratory abnormality Mixed urge and stress incontinence Mixed incontinence urge and stress (male)(female) Upper respiratory infection with cough and congestion- Primary Lumbar back pain Lumbago Migraine with aura and without status migrainosus, not intractable ([facility]) Type 2 diabetes mellitus with diabetic microalbuminuria, without long-term current use of insulin ([facility]) Diabetic polyneuropathy associated with type 2 diabetes mellitus ([facility]) Other hyperlipidemia ([facility]) Type 2 diabetes mellitus with diabetic microalbuminuria, without long-term current use of insulin ([facility])- Primary Essential hypertension Unspecified essential hypertension Other hyperlipidemia (CMS/HCC) JANETT (obstructive sleep apnea) Obstructive sleep apnea (adult) (pediatric) Type 2 diabetes mellitus without complication, without long-term current use of insulin (CMS/HCC) documented in this encounter [facility] HealthcareEvaluation note* Diagnosis Encounter for screening [...] of insulin (CMS/HCC) documented in this encounter [facility] HealthcareEvaluation note* Diagnosis Encounter for screening [...] with routine healing, subsequent encounter Other hyperlipidemia ([facility]) Hyperuricemia Other abnormal blood chemistry Osteoporosis, unspecified osteoporosis type, unspecified pathological fracture presence ([facility]) Diabetic polyneuropathy associated with type 2 diabetes mellitus ([facility]) Gastroesophageal reflux disease without esophagitis Esophageal reflux Migraine with aura and without status migrainosus, not intractable ([facility]) Hospital discharge follow-up Other follow-up examination Type 2 diabetes mellitus with diabetic microalbuminuria, without long-term current use of insulin ([facility])- Primary Other hyperlipidemia ([facility]) Essential hypertension Unspecified essential hypertension Bilateral lower extremity edema Lumbar back pain- Primary Lumbago Hospital discharge follow-up Other follow-up examination Essential hypertension- Primary Unspecified essential hypertension Type 2 diabetes mellitus with diabetic microalbuminuria, without long-term current use of insulin ([facility]) Morbid (severe) obesity due to excess calories (E66.01) Other hyperlipidemia ([facility]) Lumbar back pain Lumbago Type 2 diabetes mellitus without complication, without long-term current use of insulin ([facility]) Diabetic polyneuropathy associated with type 2 diabetes mellitus ([facility]) Mixed urge and stress incontinence Mixed incontinence urge and stress (male)(female) Snoring Other dyspnea and respiratory abnormality Encounter for long-term (current) use of high-risk medication Encounter for long-term (current) use of other medications Type 2 diabetes mellitus with diabetic microalbuminuria, without long-term current use of insulin ([facility])- Primary Essential hypertension Unspecified essential hypertension Other hyperlipidemia ([facility]) Snoring Other dyspnea and respiratory abnormality Mixed urge and stress incontinence Mixed incontinence urge and stress (male)(female) Upper respiratory infection with cough and congestion- Primary Lumbar back pain Lumbago Migraine with aura and without status migrainosus, not intractable ([facility]) Type 2 diabetes mellitus with diabetic microalbuminuria, without long-term current use of insulin ([facility]) Diabetic polyneuropathy associated with type 2 diabetes mellitus ([facility]) Other hyperlipidemia ([facility]) Type 2 diabetes mellitus with diabetic microalbuminuria, without long-term current use of insulin ([facility])- Primary Essential hypertension Unspecified essential hypertension Other hyperlipidemia (CMS/HCC) JANETT (obstructive sleep apnea) Obstructive sleep apnea (adult) (pediatric) Type 2 diabetes mellitus without complication, without long-term current use of insulin (CMS/HCC) Type 2 diabetes mellitus with diabetic microalbuminuria, without long-term current use of insulin (CMS/HCC) documented in this encounter [facility] HealthcareEvaluation note* Diagnosis Encounter for screening [...] complication, without long-term current use of insulin ([facility]/HCC) Bilateral lower extremity edema- Primary documented in this encounter [facility] HealthcareEvaluation note* Diagnosis Encounter for screening [...] unspecified osteoporosis type, unspecified pathological fracture presence ([facility]/HCC) Diabetic polyneuropathy associated with type 2 diabetes mellitus ([facility]) Gastroesophageal reflux disease without esophagitis Esophageal reflux Migraine with aura and without status migrainosus, not intractable ([facility]) Hospital discharge follow-up Other follow-up examination Type 2 diabetes mellitus with diabetic microalbuminuria, without long-term current use of insulin ([facility])- Primary Other hyperlipidemia Essential hypertension Unspecified essential hypertension Bilateral lower extremity edema Lumbar back pain- Primary Lumbago Hospital discharge follow-up Other follow-up examination Essential hypertension- Primary Unspecified essential hypertension Type 2 diabetes mellitus with diabetic microalbuminuria, without long-term current use of insulin ([facility]) Morbid (severe) obesity due to excess calories (E66.01) Other hyperlipidemia Lumbar back pain Lumbago Type 2 diabetes mellitus without complication, without long-term current use of insulin Diabetic polyneuropathy associated with type 2 diabetes mellitus ([facility]) Mixed urge and stress incontinence Mixed incontinence urge and stress (male)(female) Snoring Other dyspnea and respiratory abnormality Encounter for long-term (current) use of high-risk medication Encounter for long-term (current) use of other medications Type 2 diabetes mellitus with diabetic microalbuminuria, without long-term current use of insulin ([facility])- Primary Essential hypertension Unspecified essential hypertension Other hyperlipidemia Snoring Other dyspnea and respiratory abnormality Mixed urge and stress incontinence Mixed incontinence urge and stress (male)(female) Type 2 diabetes mellitus with diabetic microalbuminuria, without long-term current use of insulin ([facility])- Primary Essential hypertension Unspecified essential hypertension Other hyperlipidemia JANETT (obstructive sleep apnea) Obstructive sleep apnea (adult) (pediatric) Type 2 diabetes mellitus without complication, without long-term current use of insulin Type 2 diabetes mellitus with diabetic microalbuminuria, without long-term current use of insulin ([facility])- Primary Morbid (severe) obesity due to excess calories ([facility]) Other hyperlipidemia Body mass index (BMI) 39.0-39.9, adult JANETT (obstructive sleep apnea) Obstructive sleep apnea (adult) (pediatric) Bilateral lower extremity edema Migraine with aura and without status migrainosus, not intractable ([facility]) Cigarette nicotine dependence without complication Hypercalcemia Essential hypertension Unspecified essential hypertension Elevated blood uric acid level Lumbar back pain Lumbago Gastroesophageal reflux disease without esophagitis Esophageal reflux Chronic gout of multiple sites, unspecified cause Acute pain of right knee Diabetic polyneuropathy associated with type 2 diabetes mellitus (CMS/HCC) documented in this encounter [facility] HealthcareEvaluation note* Diagnosis Encounter for screening [...] (CMS/HCC) Hypercalcemia- Primary documented in this encounter [facility] HealthcareEvaluation note* Diagnosis Encounter for screening [...] unspecified osteoporosis type, unspecified pathological fracture presence ([facility]) Diabetic polyneuropathy associated with type 2 diabetes mellitus ([facility]) Gastroesophageal reflux disease without esophagitis Esophageal reflux Migraine with aura and without status migrainosus, not intractable ([facility]) Hospital discharge follow-up Other follow-up examination Type 2 diabetes mellitus with diabetic microalbuminuria, without long-term current use of insulin ([facility])- Primary Other hyperlipidemia Essential hypertension Unspecified essential hypertension Bilateral lower extremity edema Lumbar back pain- Primary Lumbago Hospital discharge follow-up Other follow-up examination Essential hypertension- Primary Unspecified essential hypertension Type 2 diabetes mellitus with diabetic microalbuminuria, without long-term current use of insulin ([facility]) Morbid (severe) obesity due to excess calories (E66.01) Other hyperlipidemia Lumbar back pain Lumbago Type 2 diabetes mellitus without complication, without long-term current use of insulin Diabetic polyneuropathy associated with type 2 diabetes mellitus ([facility]) Mixed urge and stress incontinence Mixed incontinence urge and stress (male)(female) Snoring Other dyspnea and respiratory abnormality Encounter for long-term (current) use of high-risk medication Encounter for long-term (current) use of other medications Type 2 diabetes mellitus with diabetic microalbuminuria, without long-term current use of insulin ([facility])- Primary Essential hypertension Unspecified essential hypertension Other hyperlipidemia Snoring Other dyspnea and respiratory abnormality Mixed urge and stress incontinence Mixed incontinence urge and stress (male)(female) Type 2 diabetes mellitus with diabetic microalbuminuria, without long-term current use of insulin ([facility])- Primary Essential hypertension Unspecified essential [...] microalbuminuria, without long-term current use of insulin ([facility])- Primary Morbid (severe) obesity due [...] diabetes mellitus (CMS/HCC) documented in this encounter [facility] HealthcareEvaluation note* Diagnosis Encounter for screening [...] parathyroid hormone (PTH) documented in this encounter [facility] HealthcareEvaluation note* Diagnosis Encounter for screening [...] unspecified osteoporosis type, unspecified pathological fracture presence ([facility]) Diabetic polyneuropathy associated with type 2 diabetes mellitus ([facility]) Gastroesophageal reflux disease without esophagitis Esophageal reflux Migraine with aura and without status migrainosus, not intractable ([facility]) Hospital discharge follow-up Other follow-up examination Type 2 diabetes mellitus with diabetic microalbuminuria, without long-term current use of insulin ([facility])- Primary Other hyperlipidemia Essential hypertension Unspecified essential hypertension Bilateral lower extremity edema Lumbar back pain- Primary Lumbago Hospital discharge follow-up Other follow-up examination Essential hypertension- Primary Unspecified essential hypertension Type 2 diabetes mellitus with diabetic microalbuminuria, without long-term current use of insulin ([facility]) Morbid (severe) obesity due to excess calories (E66.01) Other hyperlipidemia Lumbar back pain Lumbago Type 2 diabetes mellitus without complication, without long-term current use of insulin Diabetic polyneuropathy associated with type 2 diabetes mellitus ([facility]) Mixed urge and stress incontinence Mixed incontinence urge and stress (male)(female) Snoring Other dyspnea and respiratory abnormality Encounter for long-term (current) use of high-risk medication Encounter for long-term (current) use of other medications Type 2 diabetes mellitus with diabetic microalbuminuria, without long-term current use of insulin ([facility])- Primary Essential hypertension Unspecified essential hypertension Other hyperlipidemia Snoring Other dyspnea and respiratory abnormality Mixed urge and stress incontinence Mixed incontinence urge and stress (male)(female) Type 2 diabetes mellitus with diabetic microalbuminuria, without long-term current use of insulin ([facility])- Primary Essential hypertension Unspecified essential [...] other sinus- Primary documented in this encounter [facility] HealthcareEvaluation note* Diagnosis Encounter for screening [...] diabetes mellitus (CMS/HCC) documented in this encounter [facility] HealthcareEvaluation note* Diagnosis Encounter for screening [...] unspecified osteoporosis type, unspecified pathological fracture presence ([facility]) Diabetic polyneuropathy associated with type 2 diabetes mellitus ([facility]) Gastroesophageal reflux disease without esophagitis Esophageal reflux Migraine with aura and without status migrainosus, not intractable ([facility]) Hospital discharge follow-up Other follow-up examination Type 2 diabetes mellitus with diabetic microalbuminuria, without long-term current use of insulin ([facility])- Primary Other hyperlipidemia Essential hypertension Unspecified essential hypertension Bilateral lower extremity edema Lumbar back pain- Primary [place]ago Hospital discharge follow-up Other follow-up examination Essential hypertension- Primary Unspecified essential hypertension Type 2 diabetes mellitus with diabetic microalbuminuria, without long-term current use of insulin ([facility]) Morbid (severe) obesity due to excess calories (E66.01) Other hyperlipidemia Lumbar back pain Lumbago Type 2 diabetes mellitus without complication, without long-term current use of insulin Diabetic polyneuropathy associated with type 2 diabetes mellitus ([facility]) Mixed urge and stress incontinence Mixed incontinence urge and stress (male)(female) Snoring Other dyspnea and respiratory abnormality Encounter for long-term (current) use of high-risk medication Encounter for long-term (current) use of other medications Type 2 diabetes mellitus with diabetic microalbuminuria, without long-term current use of insulin ([facility])- Primary Essential hypertension Unspecified essential hypertension Other hyperlipidemia Snoring Other dyspnea and respiratory abnormality Mixed urge and stress incontinence Mixed incontinence urge and stress (male)(female) Type 2 diabetes mellitus with diabetic microalbuminuria, without long-term current use of insulin ([facility])- Primary Essential hypertension Unspecified essential [...] of insulin (CMS/HCC) documented in this encounter [facility] HealthcareEvaluation note* Diagnosis Encounter for screening [...] hormone (PTH)- Primary documented in this encounter [facility] HealthcareEvaluation note* Diagnosis Encounter for screening mammogram [...] associated with type 2 diabetes mellitus ([facility]) Gastroesophageal reflux disease without esophagitis Esophageal reflux Migraine with aura and without status migrainosus, not intractable Hospital discharge follow-up Other follow-up examination Type 2 diabetes mellitus with diabetic microalbuminuria, without long-term current use of insulin ([facility])- Primary Other hyperlipidemia Essential hypertension Unspecified essential hypertension Bilateral lower extremity edema Lumbar back pain- Primary Lumbago Hospital discharge follow-up Other follow-up examination Essential hypertension- Primary Unspecified essential hypertension Type 2 diabetes mellitus with diabetic microalbuminuria, without long-term current use of insulin ([facility]) Morbid (severe) obesity due to excess calories (E66.01) Other hyperlipidemia Lumbar back pain Lumbago Type 2 diabetes mellitus without complication, without long-term current use of insulin ([facility]) Diabetic polyneuropathy associated with type 2 diabetes mellitus ([facility]) Mixed urge and stress incontinence Mixed incontinence urge and stress (male)(female) Snoring Other dyspnea and respiratory abnormality Encounter for long-term (current) use of high-risk medication Encounter for long-term (current) use of other medications Type 2 diabetes mellitus with diabetic microalbuminuria, without long-term current use of insulin ([facility])- Primary Essential hypertension Unspecified essential [...] Morbid (severe) obesity due to excess calories ([facility]) Other hyperlipidemia Body mass index (BMI) [...] back pain Lumbago documented in this encounter [facility] HealthcareEvaluation note* Diagnosis Encounter for screening [...] without long-term current use of insulin ([facility]) Type 2 diabetes mellitus with diabetic microalbuminuria, without long-term current use of insulin (HCC)- Primary Morbid (severe) obesity due to excess calories ([facility]) Other hyperlipidemia Body mass index [...] Vitamin D deficiency documented in this encounter [facility] HealthcareEvaluation note* Diagnosis Encounter for screening mammogram for breast cancer- Primary Encounter for screening for malignant neoplasm of colon Type 2 diabetes mellitus without complication, without long-term current use of insulin ([facility]) Upper respiratory tract infection, unspecified [...] without long-term current use of insulin ([facility])- Primary Other hyperlipidemia Essential hypertension Unspecified essential hypertension Bilateral lower extremity edema Lumbar back pain- Primary Lumbago Hospital discharge follow-up Other follow-up examination Essential hypertension- Primary Unspecified essential hypertension Type 2 diabetes mellitus with diabetic microalbuminuria, without long-term current use of insulin ([facility]) Morbid (severe) obesity due to excess calories (E66.01) Other hyperlipidemia Lumbar back pain Lumbago Type 2 diabetes mellitus without complication, without long-term current use of insulin ([facility]) Diabetic polyneuropathy associated with type 2 diabetes mellitus (HCC) Mixed urge and stress incontinence Mixed incontinence urge and stress (male)(female) Snoring Other dyspnea and respiratory abnormality Encounter for long-term (current) use of high-risk medication Encounter for long-term (current) use of other medications Type 2 diabetes mellitus with diabetic microalbuminuria, without long-term current use of insulin ([facility])- Primary Essential hypertension Unspecified essential hypertension Other hyperlipidemia Snoring Other dyspnea and respiratory abnormality Mixed urge and stress incontinence Mixed incontinence urge and stress (male)(female) Type 2 diabetes mellitus with diabetic microalbuminuria, without long-term current use of insulin ([facility])- Primary Essential hypertension Unspecified essential hypertension Other hyperlipidemia JANETT (obstructive sleep apnea) Obstructive sleep apnea (adult) (pediatric) Type 2 diabetes mellitus without complication, without long-term current use of insulin (HCC) Type 2 diabetes mellitus with diabetic microalbuminuria, without long-term current use of insulin (HCC)- Primary Morbid (severe) obesity due to excess calories ([facility]) Other hyperlipidemia Body mass index (BMI) [...] back pain Lumbago documented in this encounter [facility] HealthcareEvaluation note* Diagnosis Encounter for screening mammogram for breast cancer- Primary Encounter for screening for malignant neoplasm of colon Type 2 diabetes mellitus without complication, without long-term current use of insulin ([facility]) Upper respiratory tract infection, unspecified type URTI (acute upper respiratory infection) Acute upper respiratory infections of unspecified site Migraine with aura and without status migrainosus, not intractable- Primary Type 2 diabetes mellitus without complication, without long-term current use of insulin ([facility]) Morbid (severe) obesity due to [...] without long-term current use of insulin ([facility]) Morbid (severe) obesity due to [...] without long-term current use of insulin ([facility])- Primary Essential hypertension Unspecified essential hypertension Other hyperlipidemia Snoring Other dyspnea and respiratory abnormality Mixed urge and stress incontinence Mixed incontinence urge and stress (male)(female) Type 2 diabetes mellitus with diabetic microalbuminuria, without long-term current use of insulin ([facility])- Primary Essential hypertension Unspecified essential hypertension Other hyperlipidemia JANETT (obstructive sleep apnea) Obstructive sleep apnea (adult) (pediatric) Type 2 diabetes mellitus without complication, without long-term current use of insulin ([facility]) Type 2 diabetes mellitus with diabetic microalbuminuria, without long-term current use of insulin ([facility])- Primary Morbid (severe) obesity due to excess calories ([facility]) Other hyperlipidemia Body mass index [...] unspecified cause- Primary documented in this encounter [facility] HealthcareEvaluation note* Diagnosis Encounter for screening mammogram for breast cancer- Primary Encounter for screening for malignant neoplasm of colon Type 2 diabetes mellitus without complication, without long-term current use of insulin ([facility]) Upper respiratory tract infection, unspecified [...] without long-term current use of insulin ([facility])- Primary Essential hypertension Unspecified essential hypertension Other hyperlipidemia JANETT (obstructive sleep apnea) Obstructive sleep apnea (adult) (pediatric) Type 2 diabetes mellitus without complication, without long-term current use of insulin (HCC) Type 2 diabetes mellitus with diabetic microalbuminuria, without long-term current use of insulin (HCC)- Primary Morbid (severe) obesity due to excess calories ([facility]) Other hyperlipidemia Body mass index (BMI) [...] without long-term current use of insulin ([facility]) documented in this encounter [facility] HealthcareEvaluation note* Diagnosis Encounter for screening mammogram for breast cancer- Primary Encounter for screening for malignant neoplasm of colon Type 2 diabetes mellitus without complication, without long-term current use of insulin ([facility]) Upper respiratory tract infection, unspecified [...] without long-term current use of insulin ([facility]) Morbid (severe) obesity due to excess calories (E66.01) Other hyperlipidemia Lumbar back pain Lumbago Type 2 diabetes mellitus without complication, without long-term current use of insulin ([facility]) Diabetic polyneuropathy associated with type 2 diabetes mellitus ([facility]) Mixed urge and stress incontinence Mixed incontinence urge and stress (male)(female) Snoring Other dyspnea and respiratory abnormality Encounter for long-term (current) use of high-risk medication Encounter for long-term (current) use of other medications Type 2 diabetes mellitus with diabetic microalbuminuria, without long-term current use of insulin ([facility])- Primary Essential hypertension Unspecified essential hypertension Other hyperlipidemia Snoring Other dyspnea and respiratory abnormality Mixed urge and stress incontinence Mixed incontinence urge and stress (male)(female) Type 2 diabetes mellitus with diabetic microalbuminuria, without long-term current use of insulin ([facility])- Primary Essential hypertension Unspecified essential hypertension Other hyperlipidemia JANETT (obstructive sleep apnea) Obstructive sleep apnea (adult) (pediatric) Type 2 diabetes mellitus without complication, without long-term current use of insulin ([facility]) Type 2 diabetes mellitus with diabetic microalbuminuria, without long-term current use of insulin ([facility])- Primary Morbid (severe) obesity due to excess calories ([facility]) Other hyperlipidemia Body mass index [...] without long-term current use of insulin ([facility])- Primary Essential hypertension Unspecified essential hypertension Morbid (severe) obesity due to excess calories (E66.01) Cigarette nicotine dependence without complication Chronic gout of multiple sites, unspecified cause Gastroesophageal reflux disease without esophagitis Esophageal reflux Bilateral lower extremity edema documented in this encounter [facility] HealthcareEvaluation note* Diagnosis Encounter for screening [...] without long-term current use of insulin ([facility])- Primary Essential hypertension Unspecified essential hypertension Other hyperlipidemia Snoring Other dyspnea and respiratory abnormality Mixed urge and stress incontinence Mixed incontinence urge and stress (male)(female) Type 2 diabetes mellitus with diabetic microalbuminuria, without long-term current use of insulin ([facility])- Primary Essential hypertension Unspecified essential hypertension Other hyperlipidemia JANETT (obstructive sleep apnea) Obstructive sleep apnea (adult) (pediatric) Type 2 diabetes mellitus without complication, without long-term current use of insulin ([facility]) Type 2 diabetes mellitus with diabetic microalbuminuria, without long-term current use of insulin ([facility])- Primary Morbid (severe) obesity due to excess calories ([facility]) Other hyperlipidemia Body mass index [...] without long-term current use of insulin ([facility])- Primary Essential hypertension Unspecified essential [...] without long-term current use of insulin ([facility]) Osteoporosis, unspecified osteoporosis type, unspecified pathological fracture presence documented in this encounter [facility] HealthcareEvaluation note* Diagnosis Encounter for screening mammogram for breast cancer- Primary Encounter for screening for malignant neoplasm of colon Type 2 diabetes mellitus without complication, without long-term current use of insulin ([facility]) Upper respiratory tract infection, unspecified type URTI (acute upper respiratory infection) Acute upper respiratory infections of unspecified site Migraine with aura and without status migrainosus, not intractable- Primary Type 2 diabetes mellitus without complication, without long-term current use of insulin ([facility]) Morbid (severe) obesity due to excess calories (E66.01) Body mass index [BMI] 40.0-44.9, adult (Z68.41) Essential hypertension Unspecified essential hypertension Essential hypertension- Primary Unspecified essential hypertension Type 2 diabetes mellitus without complication, without long-term current use of insulin ([facility]) Back spasm Other symptoms referable [...] associated with type 2 diabetes mellitus ([facility]) Gastroesophageal reflux disease without esophagitis Esophageal reflux Migraine with aura and without status migrainosus, not intractable Hospital discharge follow-up Other follow-up examination Type 2 diabetes mellitus with diabetic microalbuminuria, without long-term current use of insulin ([facility])- Primary Other hyperlipidemia Essential hypertension Unspecified essential hypertension Bilateral lower extremity edema Lumbar back pain- Primary Lumbago Hospital discharge follow-up Other follow-up examination Essential hypertension- Primary Unspecified essential hypertension Type 2 diabetes mellitus with diabetic microalbuminuria, without long-term current use of insulin ([facility]) Morbid (severe) obesity due to excess calories (E66.01) Other hyperlipidemia Lumbar back pain Lumbago Type 2 diabetes mellitus without complication, without long-term current use of insulin ([facility]) Diabetic polyneuropathy associated with type 2 diabetes mellitus ([facility]) Mixed urge and stress incontinence Mixed incontinence urge and stress (male)(female) Snoring Other dyspnea and respiratory abnormality Encounter for long-term (current) use of high-risk medication Encounter for long-term (current) use of other medications Type 2 diabetes mellitus with diabetic microalbuminuria, without long-term current use of insulin ([facility])- Primary Essential hypertension Unspecified essential hypertension Other hyperlipidemia Snoring Other dyspnea and respiratory abnormality Mixed urge and stress incontinence Mixed incontinence urge and stress (male)(female) Type 2 diabetes mellitus with diabetic microalbuminuria, without long-term current use of insulin ([facility])- Primary Essential hypertension Unspecified essential hypertension Other hyperlipidemia JANETT (obstructive sleep apnea) Obstructive sleep apnea (adult) (pediatric) Type 2 diabetes mellitus without complication, without long-term current use of insulin ([facility]) Type 2 diabetes mellitus with diabetic microalbuminuria, without long-term current use of insulin ([facility])- Primary Morbid (severe) obesity due to excess calories ([facility]) Other hyperlipidemia Body mass index [...] diabetes mellitus (HCC) documented in this encounter [facility] HealthcareEvaluation note* Diagnosis Encounter for screening [...] without long-term current use of insulin ([facility]) Morbid (severe) obesity due to [...] without long-term current use of insulin ([facility])- Primary Essential hypertension Unspecified essential hypertension Other hyperlipidemia Snoring Other dyspnea and respiratory abnormality Mixed urge and stress incontinence Mixed incontinence urge and stress (male)(female) Type 2 diabetes mellitus with diabetic microalbuminuria, without long-term current use of insulin ([facility])- Primary Essential hypertension Unspecified essential hypertension Other hyperlipidemia JANETT (obstructive sleep apnea) Obstructive sleep apnea (adult) (pediatric) Type 2 diabetes mellitus without complication, without long-term current use of insulin ([facility]) Type 2 diabetes mellitus with diabetic microalbuminuria, without long-term current use of insulin ([facility])- Primary Morbid (severe) obesity due to excess calories ([facility]) Other hyperlipidemia Body mass index [...] without long-term current use of insulin ([facility])- Primary Essential hypertension Unspecified essential hypertension Morbid (severe) obesity due to excess calories (E66.01) Cigarette nicotine dependence without complication Chronic gout of multiple sites, unspecified cause Gastroesophageal reflux disease without esophagitis Esophageal reflux Bilateral lower extremity edema Lumbar back pain Lumbago documented in this encounter [facility] HealthcareEvaluation note* Diagnosis Encounter for screening [...] without long-term current use of insulin ([facility])- Primary Essential hypertension Unspecified essential [...] Morbid (severe) obesity due to excess calories ([facility]) Other hyperlipidemia Body mass index [...] without long-term current use of insulin ([facility])- Primary Essential hypertension Unspecified essential hypertension Morbid (severe) obesity due to excess calories (E66.01) Cigarette nicotine dependence without complication Chronic gout of multiple sites, unspecified cause Gastroesophageal reflux disease without esophagitis Esophageal reflux Bilateral lower extremity edema Other hyperlipidemia documented in this encounter [facility] HealthcareEvaluation note* Diagnosis Encounter for screening mammogram for breast cancer- Primary Encounter for screening for malignant neoplasm of colon Type 2 diabetes mellitus without complication, without long-term current use of insulin ([facility]) Upper respiratory tract infection, unspecified type URTI (acute upper respiratory infection) Acute upper respiratory infections of unspecified site Migraine with aura and without status migrainosus, not intractable- Primary Type 2 diabetes mellitus without complication, without long-term current use of insulin ([facility]) Morbid (severe) obesity due to excess calories (E66.01) Body mass index [BMI] 40.0-44.9, adult (Z68.41) Essential hypertension Unspecified essential hypertension Essential hypertension- Primary Unspecified essential hypertension Type 2 diabetes mellitus without complication, without long-term current use of insulin ([facility]) Back spasm Other symptoms referable [...] without long-term current use of insulin ([facility])- Primary Other hyperlipidemia Essential hypertension Unspecified essential hypertension Bilateral lower extremity edema Lumbar back pain- Primary Lumbago Hospital discharge follow-up Other follow-up examination Essential hypertension- Primary Unspecified essential hypertension Type 2 diabetes mellitus with diabetic microalbuminuria, without long-term current use of insulin ([facility]) Morbid (severe) obesity due to excess calories (E66.01) Other hyperlipidemia Lumbar back pain Lumbago Type 2 diabetes mellitus without complication, without long-term current use of insulin ([facility]) Diabetic polyneuropathy associated with type 2 diabetes mellitus ([facility]) Mixed urge and stress incontinence Mixed incontinence urge and stress (male)(female) Snoring Other dyspnea and respiratory abnormality Encounter for long-term (current) use of high-risk medication Encounter for long-term (current) use of other medications Type 2 diabetes mellitus with diabetic microalbuminuria, without long-term current use of insulin ([facility])- Primary Essential hypertension Unspecified essential hypertension Other hyperlipidemia Snoring Other dyspnea and respiratory abnormality Mixed urge and stress incontinence Mixed incontinence urge and stress (male)(female) Type 2 diabetes mellitus with diabetic microalbuminuria, without long-term current use of insulin ([facility])- Primary Essential hypertension Unspecified essential hypertension Other hyperlipidemia JANETT (obstructive sleep apnea) Obstructive sleep apnea (adult) (pediatric) Type 2 diabetes mellitus without complication, without long-term current use of insulin ([facility]) Type 2 diabetes mellitus with diabetic microalbuminuria, without long-term current use of insulin ([facility])- Primary Morbid (severe) obesity due to excess calories ([facility]) Other hyperlipidemia Body mass index [...] surgerySurgical History hysterectomySurgical Historytubal ligationHospitalization Historysee above [place] Other Reason for referral (narrative)* Consultation (Routine) - Pending ReviewSpecialtyDiagnoses / ProceduresReferred By Contact Referred To ContactNeurology Diagnoses Snoring Procedures RI OFFICE/OUTPATIENT NEW HIGH MDM 60 MINUTES oSnam Drake NP [address] [place] [address] Siavn Banda DO [address] [place] [address] Referral IDStatusReasonStart DateExpiration DateVisits RequestedVisits [id number] Review Specialty Services Required / Scheduling Instructions Please include OV note from today * Consultation (Routine) - Pending ReviewSpecialtyDiagnoses / ProceduresReferred By ContactReferred To ContactUrology Diagnoses Mixed urge and stress incontinence Procedures RI OFFICE/OUTPATIENT NEW HIGH MDM 60 MINUTES Sonam Drake NP [address] [place] [address] Skinny Villafuerte MD [address] [place] [address] Referral IDStatusReasonStart DateExpiration DateVisits RequestedVisits [id number] Review Specialty Services Required / CRIS Simms for referral (narrative)No reason for referral information availableDelaware County Hospital Work Phone: Summary Purpose Family History [...] DateEnd Date Sr Jonathan Bean, [address] [place] [address] PCP - GeneralFamily Medicine08/30/21Team MemberRelationshipSpecialtyStart DateEnd Date Shaikh Connelly MD PCP - GeneralInternal Oyxcbwow36/1/23 Team Status: Active Member Role Status Dates NON STAFF Primary Care Provider Active Team Status: Inactive Member Role Status Dates Ana Luisa Curtis MD Attending Provider Active Start: April 30, 2023 End: April 30, 2023NON STAFFPrimary Care ProviderActiveStart: April 30, 2023 End: April 30, 2023Team MemberRelationshipSpecialtyStart DateEnd Date Jose Chandler MD [address] [place] [address] PCP - GeneralFami Itabzvep70/31/24 Sonam Drake NP [address] [place] [address] [facility]09/24/23Team MemberRelationshipSpecialtyStart DateEnd Date Jose Chandler MD [address] [place] [address] PCP - [facility]12/12/23 Sonam Drake, RONALDO [address] [place] [address] Nurse PractitionerP[facility]09/24/23Team MemberRelationshipSpecialtyStart DateEnd Date Jose Chandler MD [address] [place] [address] PCP - Generalmi Acwiynwr31/31/24 Sonam Drake, RONALDO [address] [place] [address] Nurse PractitionerP[facility]09/24/23Team MemberRelationshipSpecialtyStart DateEnd Date Jose Chandler MD [address] [place] [address] [facility] Zdjrnpwd47/31/24 Sonam Drake NP [address] [place] [address] Nurse PractitionerP[facility]09/24/23Team MemberRelationshipSpecialtyStart DateEnd Date Jose Chandler MD [address] [place] [address] PCP - [facility]12/12/23 Sonam Drake NP [address] [place] [address] Nurse PractitionerP[facility]09/24/23Team MemberRelationshipSpecialtyStart DateEnd Date Jose Chandler MD [address] [place] [address] PCP - [facility]12/12/23 Sonam Drake NP [address] [place] [address] Nurse Pract[facility]erP[facility]09/24/23Team MemberRelationshipSpecialtyStart DateEnd Date Jose Chandler MD [address] [place] [address] PCP - [facility]09/24/23 Sonam Drake NP [address] [place] [address] Nurse Pract[facility]09/24/23Team MemberRelationshipSpecialtyStart DateEnd Date Jose Chandler MD [address] [place] [address] PCP - [facility]mi [facility]09/24/23 Sonam Drake NP [address] [place] [address] Nurse PractitionerP[facility]09/24/23Team MemberRelationshipSpecialtyStart DateEnd Date Jose Chandler MD [address] [place] [address] PCP - GeneralP[facility]09/24/23 Sonam Drake, RONALDO [address] [place] [address] Nurse PractitionerP[facility]09/24/23Team MemberRelationshipSpecialtyStart DateEnd Date Jose Chandler MD [address] [place] [address] PCP - GeneralP[facility]09/24/23 Sonam Drake, RONALDO [address] [place] [address] Nurse PractitionerP[facility]09/24/23Team MemberRelationshipSpecialtyStart DateEnd Date Jose Chandler MD [address] [place] [address] [facility] - [facility] Vbdonlko56/31/24 Sonam Drake NP [address] [place] [address] Nurse PractitionerP[facility]09/24/23Team MemberRelationshipSpecialtyStart DateEnd Date Jose Chandler MD [address] [place] [address] PCP - [facility] [facility]23 Sonam Drake NP [address] [place] [address] Nurse PractitionerP[facility]09/24/23Team MemberRelationshipSpecialtyStart DateEnd Date Jose Chandler MD [address] [place] [address] PCP - [facility]12/12/23 Sonam Drake NP [address] [place] [address] Nurse PractitionerP[facility]09/24/23Team MemberRelationshipSpecialtyStart DateEnd Date Jose Chandler MD [address] [place] [address] PCP - [facility]12/12/23 Sonam Drake NP [address] [place] [address] Nurse PractitionerP[facility]09/24/23Team MemberRelationshipSpecialtyStart DateEnd Date Jose Chandler MD [address] [place] [address] PCP - Generalmi Kmntgaee76/31/24 Sonam Drake NP [address] [place] [address] Nurse PractitionerP[facility]09/24/23Team MemberRelationshipSpecialtyStart DateEnd Date Jose Chandler MD [address] [place] [address] [facility] - [facility] Cgsfqigo47/31/24 Sonam Drake NP [address] [place] [address] Nurse PractitionerP[facility]09/24/23Team MemberRelationshipSpecialtyStart DateEnd Date Jose Chandler MD [address] [place] [address] PCP - Generalmi Kefrqiek20/31/24 Sonam Drake, RONALDO [address] [place] [address] Nurse PractitionerP[facility]09/24/23Team MemberRelationshipSpecialtyStart DateEnd Date Jose Chandler MD [address] [place] [address] [facility] - [facility] Gofdekrm00/31/24 Sonam Drake NP [address] [place] [address] Nurse PractitionerP[facility]09/24/23Team MemberRelationshipSpecialtyStart DateEnd Date Jose Chandler MD [address] [place] [address] PCP - Generalmi Dzsmjity94/31/24 Sonam Drake NP [address] [place] [address] Nurse PractitionerP[facility]09/24/23Team MemberRelationshipSpecialtyStart DateEnd Date Jose Chandler MD [address] [place] [address] [facility] - [facility] Mjlhhhhx38/31/24 Sonam Drake NP [address] [place] [address] Nurse PractitionerP[facility]09/24/23Team MemberRelationshipSpecialtyStart DateEnd Date Jose Chandler MD [address] [place] [address] [facility] - [facility] Idfnasns26/31/24 Sonam Drake NP Nurse PractitionerFaNortheast [facility] [place]09/24/23 Za Wilkerson NP [address] [facility] [address] [place] [address] Nurse PractitionerNeurology04/21/24 Sivan Banda DO [address] [place] [address] Referring PhysicianNeurology04/21/24Team MemberRelationshipSpecialtyStart DateEnd Date Jose Chandler MD [address] [place] [address] PCP - GeneralFamily Pggikucr24/31/24 Sonam Drake NP Nurse PractitionerFamily Medicine09/24/23 Za Wilkerson NP [address] [place], [place] Nurse PractitionerNeurology04/21/24 Sivan Banda DO [address] [place], [place] [address] Referring PhysicianNeurology04/21/24Team MemberRelationshipSpecialtyStart DateEnd Date Jose Chandler MD [address] [place] [address] PCP - GeneralFamily Ezfjvduy41/31/24 Sonam Drake NP Nurse PractitionerFamily Medicine09/24/23 Za Wilkerson NP [address] [place], [place] Nurse PractitionerNeurology04/21/24 Sivan Banda DO [address] [place] [address] Referring PhysicianNeurology04/21/24Team MemberRelationshipSpecialtyStart DateEnd Date Jose Chandler MD [address] [place] [address] PCP - GeneralFamily Fmsbcfvp31/31/24 Sonam Drake, RONALDO Nurse PractitionerFamily Medicine09/24/23 Za Wilkerson NP [address] [place], [place] Nurse PractitionerNeurology04/21/24 Sivan Banda DO [address] [place] [address] Referring PhysicianNeurology04/21/24Team MemberRelationshipSpecialtyStart DateEnd Date Jose Chandler MD [address] [place] [address] PCP - GeneralOr[facility] Systemly Byzpumnk80/31/24 Sonam Drake NP Nurse PractitionerFandly Medicine09/24/23 Za Wilkerson NP [address] [place], [place] Nurse PractitionerNeurology04/21/24 Sivan Banda DO [address] [place] [address] Referring PhysicianNeurology04/21/24Team MemberRelationshipSpecialtyStart DateEnd Date Jose Chandler MD [address] [place] [address] PCP - GeneralFamily Lfvvclhr48/31/24 Sonam Drake NP Nurse PractitionerFamily Medicine09/24/23 Za Wilkerson, RONALDO [address] [place], [place] Nurse PractitionerNeurology04/21/24 Sivan Banda DO [address] [place], [place] [address] Referring PhysicianNeurology04/21/24Team MemberRelationshipSpecialtyStart DateEnd Date Jose Chandler MD [address] [place] [address] PCP - GeneralFamily Ldsajdnu44/31/24 Sonam Drake NP Nurse PractitionerFandly Medicine09/24/23 Za Wilkerson NP [address] [place] Nurse PractitionerNeurology04/21/24 Sivan Banda DO [address] [place], [place] [address] Referring PhysicianNeurology04/21/24 Team Status: Active Member Role [...] May 28, 2024 End: May 28, 2024Ameena FontenotMiddlesex Hospital ProviderActiveStart: May 28, 2024 End: May 28, 2024Team MemberRelationshipSpecialtyStart DateEnd Date Jose Chandler MD [address] [place] [address] [facility] - [facility] Zlujfnta06/31/24 Sonam Drake NP [facility]erHigh [facility] Medicine09/24/23 Za Wilkerson NP [address] [place], [place] Nurse PractitionerNeurology04/21/24 Sivan Banda DO [address] [place], [place] [address] Referring PhysicianNeurology04/21/24Team MemberRelationshipSpecialtyStart DateEnd Date Jose Chandler MD [address] [place] [address] PCP - [facility] Aosfkjuy32/31/24 Sonam Drake NP Nurse PractitionerFandly Medicine09/24/23 Za Wilkerson NP [address] [place], [place] Nurse PractitionerNeurology04/21/24 Sivan Banda DO [address] [place], [place] [address] Referring PhysicianNeurology04/21/24Team MemberRelationshipSpecialtyStart DateEnd Date Jose Chandler MD [address] [place] [address] PCP - GeneralFamily Vblblttg41/31/24 Sonam Drake NP Nurse PractitionerFamily Medicine09/24/23 Za Wilkerson NP [address] [place] Nurse PractitionerNeurology04/21/24 Sivan Banda DO [address] [place] [address] Referring PhysicianNeurology04/21/24Team MemberRelationshipSpecialtyStart DateEnd Date Jose Chandler MD [address] [place] [address] PCP - GeneralOrange City [facility] Systemly Kedhrqzz23/31/24 Sonam Drake NP Nurse PractitionerFamily Medicine09/24/23 Za Wilkerson NP [address] [place] [address] Nurse PractitionerNeurology04/21/24 Sivan Banda DO [address] [place] [address] Referring PhysicianNeurology04/21/24Team MemberRelationshipSpecialtyStart DateEnd Date Jose Chandler MD [address] [place] [address] PCP - GeneralFamily Biuixypt67/31/24 Sonam Drake NP Nurse PractitionerFamily Medicine09/24/23 Za Wilkerson, RONALDO [address] [place] [address] Nurse PractitionerNeurology04/21/24 Sivan Banda DO [address] [place] [address] Referring PhysicianNeurology04/21/24Team MemberRelationshipSpecialtyStart DateEnd Date Jose Chandler MD [address] [place] [address] PCP - GeneralFamily Hwfhuwwl88/31/24 Sonam Drake NP Nurse PractitionerFandly Medicine09/24/23 Za Wilkerson NP [address] [place] [address] Nurse PractitionerNeurology04/21/24 Sivan Banda DO [address] [place] [address] Referring PhysicianNeurology04/21/24Team MemberRelationshipSpecialtyStart DateEnd Date Jose Chandler MD [address] [place] [address] PCP - GeneralFamily Lzrbpcth97/31/24 Sonam Drake NP Nurse PractitionerFamily Medicine09/24/23 Za Wilkerson, RONALDO [address] [place] [address] Nurse PractitionerNeurology04/21/24 Sivan Banda DO [address] [place] [address] Referring PhysicianNeurology04/21/24Team MemberRelationshipSpecialtyStart DateEnd Date Jose Chandler MD [address] [place] [address] [facility] - [facility] Ytepmrdf19/31/24 Sonam Drake NP Nurse PractitionerOrange City Area Health Systemly Medicine09/24/23 Za Wilkerson, RONALDO [address] [place] [address] Nurse PractitionerNeurology04/21/24 Sivan Banda DO [address] [place] [address] Referring PhysicianNeurology04/21/24Team MemberRelationshipSpecialtyStart DateEnd Date Jose Chandler MD [address] [place] [address] PCP - [facility] Wdrobpfy27/31/24 Sonam Drake NP Nurse PractitionerFamily Medicine09/24/23 Za Wilkerson, RONALDO [address] [place] [address] Nurse PractitionerNeurology04/21/24 Sivan Banda DO [address] [place] [address] Referring PhysicianNeurology04/21/24Team MemberRelationshipSpecialtyStart DateEnd Date Jose Chandler MD [address] [place] [address] PCP - Generalmily Syxsppvb86/31/24 Sonam Drake NP Nurse PractitionerFamily Medicine09/24/23 Za Wilkerson, RONALDO [address] [place] [address] Nurse PractitionerNeurology04/21/24 Sivan Banda DO [address] [place] [address] Referring PhysicianNeurology04/21/24Team MemberRelationshipSpecialtyStart DateEnd Date Jose Chandler MD [address] [place] [address] PCP - GeneralFamily Afycckoj63/31/24 Sonam Drake NP Nurse PractitionerFamily Medicine09/24/23 Za Wilkerson NP [address] [place] [address] Nurse PractitionerNeurology04/21/24 Sivan Banda DO [address] [place] [address] Referring PhysicianNeurology04/21/24Team MemberRelationshipSpecialtyStart DateEnd Date Jose Chandler MD [address] [place] [address] PCP - Generalmily Arlkxzmm70/31/24 Sonam Drake NP [facility]High [facility] Medicine09/24/23 Za Wilkerson, RONALDO [address] [place] [address] Nurse PractitionerNeurology04/21/24 Sivan Banda DO [address] [place], [facility]11 Referring PhysicianNeurology04/21/24Team MemberRelationshipSpecialtyStart DateEnd Date Jose Chandler MD [address] [place] [address] PCP - GeneralFamily Mdojoiwy01/31/24 Sonam Drake NP Nurse PractitionerFaquincy medical center Medicine09/24/23 Za Wilkerson NP [address] [place] [address] Nurse PractitionerNeurology04/21/24 Sivan Banda DO [address] [place] [address] Referring PhysicianNeurology04/21/24 Team Status: Inactive Member Role Status Dates Ameena Vera Primary Care Provider Active Sta rt: October 19, 2024 End: October 19, 2024Ameena Woodending ProviderActiveStart: October 19, 2024 End: October 19, 2024Team MemberRelationshipSpecialtyStart DateEnd Date Jose Chandler MD PCP - Generalmily Cqmvaylb46/31/24 Sonam Drake NP Nurse PractitionerFandly Medicine09/24/23 Za Wilkerson NP Nurse PractitionerNeurology04/21/24 Sivan Banda DO [address] [place] [address] Referring PhysicianNeurology04/21/24Team MemberRelationshipSpecialtyStart DateEnd Date Jose Chandler MD [facility] Uqeaueds79/31/24 Sonam Drake NP [facility]High [facility] Medicine09/24/23 Za Wilkerson NP Nurse PractitionerNeurology04/21/24 Sivan Banda DO [address] [place] [address] Referring PhysicianNeurology04/21/24 Team Status: Active Member Role Status Dates Ameena Vera NP-C Primary Care Provider Active Team Status: Inactive Member Role Status Dates Ameena Vera SALT MAKER-C Primary Care Provider Active Start: October 19, 2024 End: October 19, 2024Ameena Vera , SALT MAKER-CAttending ProviderActiveStart: October 19, 2024 End: October 19, 2024 Team Status: Active Member Role Status Dates Ameena Vera , SALT MAKER-C Primary Care Provider Active Start: October 26, 2024 Kasi Bennett MDAttending ProviderActiveStart: October 26, 2024 Team Status: Inactive Member Role Status Dates Ameena Vera , SALT MAKER-C Primary Care Provider Active Start: November 23, 2024 End: November 23, 2024Ameena Vera , SALT MAKER-CAttending ProviderActiveStart: November 23, 2024 End: November 23, 2024 Team Status: Active Member Role/Relationship Status Dates Ameena Vera , SALT MAKER-C Primary Care Provider Active Team Status: Inactive Member Role/Relationship Status Dates Ameena Vera , SALT MAKER-C Primary Care Provider Active Start: October 19, 2024 End: October 19, 2024Ameena Vera , SALT MAKER-CAttending ProviderActiveStart: October 19, 2024 End: October 19, 2024 Team Status: Active Member Role/Relationship Status Dates Ameena Alyssa Vera , SALT MAKER-C Primary Care Provider Active Start: October 26, 2024 Kasi Bennett MDAttending ProviderActiveStart: October 26, 2024 Team Status: Inactive Member Role/Relationship Status Dates Ameena Alyssa Vera , SALT MAKER-C Primary Care Provider Active Start: November 23, 2024 End: November 23, 2024Ameena Vera , SALT MAKER-CAttending ProviderActiveStart: November 23, 2024 End: November 23, 2024 Team Status: Active Member Role/Relationship Status Dates Ameena Vera , SALT MAKER-C Primary Care Provider Active Start: November 30, 2024 Ameena Vera , SALT MAKER-CAttending ProviderActiveStart: November 30, 2024 Team Status: Inactive Member Role/Relationship Status Dates Ameena Vera , SALT MAKER-C Primary Care Provider Active Start: December 09, 2024 End: December 09, 2024Lui Banks II, MDAttending ProviderActiveStart: December 09, 2024 End: December 09, 2024Team MemberRelationshipSpecialtyStart DateEnd Date Shaikh Connelly MD PCP - GeneralInternal Medicine Jose Chandler MD PCP - GeneralFamily Medicine09/23/2409 Unallocated, Cris Hernandez MD [address] [place] [address] PCP - GeneralFamily Wjgqrtlr79/15/ Jose Chandler MD PCP - GeneralFamily Zwgcwzws54/31/24 Sonam Drake, RONALDO Nurse PractitionerFamily Medicine09/24/23 Za Wilkerson NP [address] [place] [address] Nurse PractitionerNeurology04/21/24 Sivan Banda DO [address] [place] [address] Referring PhysicianNeurology04/21/24Team MemberRelationshipSpecialtyStart DateEnd Date Shaikh Connelly MD PCP - GeneralInternal Nfmxuevc48/1/233 Shaikh Connelly MD PCP - GeneralInternal Medicine Jose Chandler MD PCP - GeneralFamily Medicine09/23/2409 UnallocatCris rubi MD [address] [place] [address] PCP - GeneralFamily Iahecgiz05/15/ Jose Chandler MD PCP - GeneralFamily Bnhheuhd75/31/24 Sonam Drake NP Nurse PractitionerFandly Medicine09/24/23 Za Wilkerson, RONALDO [address] [place] [address] Nurse PractitionerNeurology04/21/24 Sivan Banda DO [address] [place] [address] Referring PhysicianNeurology04/21/24Team MemberRelationshipSpecialtyStart DateEnd Date Jose Chandler MD PCP - GeneralFamily Medicine09/23/2409 UnallocatCris rubi MD [address] [place] [address] PCP - GeneralFamily Yvinbhko14/15/ Jose Chandler MD PCP - GeneralFamily Jnzgaoht32/31/24 Sonam Drake NP Nurse PractitionerFamily Medicine09/24/23 Za Wilkerson NP [address] [place] [address] Nurse PractitionerNeurology04/21/24 Sivan Banda DO [address] [place] [address] Referring PhysicianNeurology04/21/24Team MemberRelationshipSpecialtyStart DateEnd Date Jose Chandler MD PCP - GeneralFamily Pbaadjwq05/31/24 Sonam Drake NP Nurse PractitionerFamily Medicine09/24/23 aZ Wilkerson NP Nurse PractitionerNeurology04/21/24 Sivan Banda DO [address] [place] [address] Referring PhysicianNeurology04/21/24Team MemberRelationshipSpecialtyStart DateEnd Date Shaikh Connelly MD PCP - GeneralInternal Iyomeerx31/1/233 Shaikh Connelly MD PCP - GeneralInternal Medicine Jose Chandler MD PCP - GeneralFamily Medicine09/23/2409 Unallocated, Cris Hernandez MD [address] [place] [address] PCP - GeneralFamily Tkzbshcr24/ Jose Chandler MD PCP - GeneralFamily Xrfrotyg07/31/24 Sonam Drake, RONALDO Nurse PractitionerFamily Medicine09/24/23 Za Wilkerson, RONALDO [address] [place] [address] Nurse PractitionerNeurology04/21/24 Sivan Banda DO [address] [place] [address] Referring PhysicianNeurology04/21/24 INFORMATION SOURCE (unrecogn ized section and content) DATE CREATED AUTHOR 09/10/2021 [facility] DATE CREATED AUTHOR AUTHOR'S ORGANIZ ATION 06/08/2022 [facility] DATE CREATED AUTHOR AUTHOR'S ORGANIZ ATION 10/06/2023 [facility] DATE CREATED AUTHOR AUTHOR'S ORGANIZ ATION 06/01/2024 [facility] DATE CREATED AUTHOR AUTHOR'S ORGANIZ ATION 11/02/2024 [facility] EPIC DATE CREATED AUTHOR AUTHOR'S ORGANIZ ATION 12/05/2024 [facility] REASON FOR VISIT (unrecogniz ed section and content) ReasonOnset DateCommentsMed [id number] RefillReason CommentsSleep ApneaReasonCommentsDiabetesReasonOnset DateCommentsMed Refill 4ReasonCommentsFollow-py6eeSrkxxcr FrequencyC/o of nocturnal enuresis ReasonOnset DateCommentsMed Qzyhvy504ReasonOnset DateCommentsMed Refill 4ReasonOnset DateCommentsMed Tgcivp364ReasonCommentsCoughNasal CongestionReasonOnset DateCommentsMed Vxcxwf8303/09/2024ReasonCommentsFollow-up ReasonCommentsSkin CheckReasonOnset DateCommentsMed Pnyhhk9503/30/2024ReasonOnset DateCommentsMed Lehgzc2005/06/2024ReasonCommentsKnee PainReasonCommentsSleep Apnea ReasonOnset DateCommentsMed Axkmpd5506/23/2024ReasonOnset DateCommentsMed Refill 07/22/2024ReasonCommentsNEWPTH REF/LABSpecialtyDiagnoses / ProceduresReferred By ContactReferred To ContactEndocrinology Diagnoses Low serum parathyroid hormone (PTH) Procedures RI OFFICE/OUTPATIENT NEW HIGH MDM 60 MINUTES Ameena Vera, RONALDO [address] [place] [address] Phone: tel: fax: Kasi Bennett MD [address] [facility], [address] [place] [address] Phone: tel: fax: Referral IDStatusReasonStart DateExpiration DateVisits RequestedVisits [id number] Review Specialty Services Required 1ReasonOnset DateCommentsMed Ikphsu2910/05/2024ReasonComments Follow-upPTH LAB Goals (unrecognized section and content) [...] BE BASED ON THE PRIMARY CLINICAL RECORDS. [facility] provides no warranty or guarantee of the accuracy or completeness of information in this document.
--- NOTE | 2025-01-20 11:36 | PM.CN ---
Consult Note: HPI Data of Consult Patient: known to practice within the last 3 years Requesting Physician: Chela Tijerina NP Primary Care Provider: Ameena Vera NP Consult Narrative Reason for consult: low back pain Narrative: Brian Weir a pleasant 58 year old female presents for evaluation and management of chronic low back pain. pt has failed to benefit from 6 weeks of provider guided HEP/PT, tylenol, NSAIDs, heat and ice. Pain today 2/10 increasing to 5/10, pain increased with standing, walking, activity, lifting, stairs, bending, twisting, pushing, pulling. Utilizes baclofen, diclofenac, lyrica, and Percocet for pain with moderate relief without side effects. recently underwent left L4-5 L5-S1 TFESI with >80% improvement ongoing in [place]. cc:: CC: Chela Tijerina NP [facility] Medical History Morbid obesity due to excess calories ?E66.01 - Morbid (severe) obesity due to excess calories (ICD-10) Type 2 diabetes mellitus with hyperglycemia ?E11.65 - Type 2 diabetes mellitus with hyperglycemia (ICD-10) HTN (hypertension) ?I10 - Essential (primary) hypertension (ICD-10) Lumbar spondylosis ?M47.816 - Spondylosis without myelopathy or radiculopathy, lumbar region (ICD-10) Fracture of foot ?S92.909A - Unspecified fracture of unspecified foot, initial encounter for closed fracture (ICD-10) Closed fibular fracture ?S82.409A - Unspecified fracture of shaft of unspecified fibula, initial encounter for closed fracture (ICD-10) Fracture of medial cuneiform of left foot ?S92.242A - Displaced fracture of medial cuneiform of left foot, initial encounter for closed fracture (ICD-10) Fracture of metatarsal of left foot, closed ?S92.302A - Fracture of unspecified metatarsal bone(s), left foot, initial encounter for closed fracture (ICD-10) Dislocation of foot, left, closed ?S93.305A - Unspecified dislocation of left foot, initial encounter (ICD-10) Mild protein-calorie malnutrition ?E44.1 - Mild protein-calorie malnutrition (ICD-10) Acute exacerbation of chronic low back pain ?M54.50 - Low back pain, unspecified (ICD-10) ?G89.29 - Other chronic pain (ICD-10) Hyperlipidemia ?E78.5 - Hyperlipidemia, unspecified (ICD-10) Iron deficiency anemia ?D50.9 - Iron deficiency anemia, unspecified (ICD-10) Lumbar radiculopathy ?M54.16 - Radiculopathy, lumbar region (ICD-10) Chronic prescription opiate use ?Z79.891 - intermediate accountant (current) use of opiate analgesic (ICD-10) Sacroiliac joint pain ?M53.3 - Sacrococcygeal disorders, not elsewhere classified (ICD-10) Muscle spasm ?M62.838 - Other muscle spasm (ICD-10) Cervical spondylosis ?M47.812 - Spondylosis without myelopathy or radiculopathy, cervical region (ICD-10) Lumbar stenosis with neurogenic claudication ?M48.062 - Spinal stenosis, lumbar region with neurogenic claudication (ICD-10) Compression fracture of L1 vertebra ?S32.010A - Wedge compression fracture of first lumbar vertebra, initial encounter for closed fracture (ICD-10) Tubal ?O00.109 - Unspecified tubal without intrauterine (ICD-10) TMJ (dislocation of temporomandibular joint) ?S03.00XA - Dislocation of jaw, unspecified side, initial encounter (ICD-10) Upper back pain ?M54.9 - Dorsalgia, unspecified (ICD-10) Back pain ?M54.9 - Dorsalgia, unspecified (ICD-10) Neck pain ?M54.2 - Cervicalgia (ICD-10) Osteoarthritis ?M19.90 - Unspecified osteoarthritis, unspecified site (ICD-10) Obesity ?E66.9 - Obesity, unspecified (ICD-10) Heartburn ?R12 - Heartburn (ICD-10) Acid reflux ?K21.9 - Gastro-esophageal reflux disease without esophagitis (ICD-10) Smoker ?F17.200 - Nicotine dependence, unspecified, uncomplicated (ICD-10) Surgical History H/O unilateral salpingectomy ?Z90.79 - Acquired absence of other genital organ(s) (ICD-10) S/P lumbar spine operation ?Z98.890 - Other specified postprocedural states (ICD-10) H/O: hysterectomy ?Z90.710 - Acquired absence of both cervix and uterus (ICD-10) Family History Mother Family history of CHF (congestive heart failure) Family history of cancer Family history of diabetes mellitus Family history of hypertension Family history of myocardial infarction Social History Within the past year, how often did you have a drink containing alcohol: monthly or less Smoking status: Light tobacco smoker Non-prescribed substance use: denies use Previous occupational history: retired/disability Highest level of school completed/degree received: high school graduate Are you now , , , , never or living with a partner: In a typical week, how many times do you talk on the telephone with family, friends, or neighbors: 3 or more times per week How often do you get together with friends or relatives: 3 or more times per week How often do you attend moravian or mandaen services: never Little interest or pleasure in doing things: not at all Feeling down, depressed, or hopeless: not at all Feel stressed/tense/nervous/anxious/difficulty sleeping: not at all Do you think of yourself as: straight/heterosexual Gender Identity: female Meds Home Medications and Allergies Home Medications ?Medication ?Instructions ?Recorded ?Confirmed ?Type alendronate 70 mg tablet 70 mg PO QWEEK 07/20/22 01/11/25 History allopurinol 300 mg tablet 300 mg PO DAILY 07/20/22 01/11/25 History aspirin 81 mg tablet,delayed 81 mg PO DAILY 07/20/22 01/11/25 History release (Adult Aspirin Regimen) divalproex 500 mg tablet,delayed 500 mg PO BID 07/20/22 01/11/25 History release (Depakote) multivitamin 1 tab PO DAILY 07/20/22 01/11/25 History oxycodone-acetaminophen 5 mg-325 1 tab PO DAILY PRN pain 07/20/22 01/11/25 History mg tablet prasterone (DHEA) 50 mg capsule 25 mg PO DAILY 07/20/22 01/11/25 History (DHEA) famotidine 20 mg tablet 20 mg PO BID 06/08/23 01/11/25 History rosuvastatin 20 mg tablet 20 mg PO DAILY 06/08/23 01/11/25 History furosemide 20 mg tablet 20 mg PO .every other day edema 09/21/24 01/11/25 History diclofenac sodium 75 mg 75 mg PO BID PRN pain #0 tabs 09/22/24 01/11/25 Rx tablet,delayed release metformin 500 mg tablet 500 mg PO BID 09/22/24 01/11/25 History semaglutide 2 mg/dose (8 mg/3 mL) 2 mg subcut Q7D 09/22/24 01/11/25 History subcutaneous pen injector (Ozempic) baclofen 10 mg tablet 10 mg PO BID 10/07/24 01/11/25 History pregabalin 75 mg capsule (Lyrica) 75 mg PO BID 10/26/24 01/11/25 History Allergies Allergy/AdvReac Type Severity Reaction Status Date / Time No Known Drug Allergies Allergy Verified 01/11/25 07:20 Exam Constitutional Documenting provider has reviewed patient's vital signs: yes Common normals: no apparent distress, oriented x3 and alert General appearance: cooperative HENMT Common normals: normocephalic, hearing grossly normal bilaterally and moist oral mucous membranes Head and scalp: normocephalic Eye Common normals: PERRL Pupil: PERRL Neck & C-Spine Common normals: full ROM General: normal visual inspection Chest Common normals: inspection of chest normal Respiratory Common normals: normal respiratory effort, no retractions and no use of accessory muscles Back & Pelvis Lumbar spine/lower back: lumbar ROM normal and straight leg raise negative bilaterally; ROM not limited, no pain with ROM and no lumbar spinal tenderness Other: strength 5/5 in BLE sensation intact BLE Neuro Common normals: oriented x3 Sensorium/orientation: alert Psych Common normals: mental status grossly normal, thought process normal, cooperative, affect normal, speech normal and activity/motor behavior normal Speech: normal speech Thought process: normal thought process Results Additional Findings Additional findings: If on a controlled substance or opioids, I have checked an [place] report on this patient and there are no aberrancies noted in the prescribing history.??If on a controlled substance or opioid a drug screen was completed and reviewed within the last year, and if there has not been a drug screen completed we ordered one today to monitor higher risk, state monitored pain medication use. As part of providing excellent, safe, comprehensive care, the following was completed at our patient's visit: 1. A medication reconciliation and review to ensure accurate knowledge of current/active medications, including asking our patients to inform us about any [id number] medications or herbal remedies/nutritional supplements/alternative remedies. 2. A review to specifically ensure our patients have had annual screening for screening for depression, screening for tobacco use, and screening for unhealthy alcohol use. For concerning screenings had a discussion with the patient, provided patient education, and recommended follow-up with primary care provider when appropriate. If patient noted with a risk of falling, they received education on strength, gait, and balance training to prevent future risk of falling. Portions of this note may have been carried over from the previous visit and updated as appropriate. Please note this office utilizes paper charting in addition to the electronic medical record. A list of current medications, vitals, and PMH is available there as the clinical staff outside of myself do not have access to [facility] charting during the clinic day operations. As part of providing quality comprehensive care the current medications, vitals, and PMH were reviewed in the paper chart. Assessment and Plan Assessment and Plan (1) Lumbar stenosis with neurogenic claudication: Plan The patient has had over 3 months of moderate to severe low back pain with functional impairment and inadequate response to conservative care including NSAIDS (unless there are contraindication such as concurrent blood thinners), multiple oral or topical pain medications, and home exercise program/physical therapy.? Patient has completed >6 weeks of guided home exercise program and/or formal physical therapy program without relief of their symptoms.? The Oswestry Disability Index was completed, and the patient scored a 44%.? pain well controlled status post left L4-5 L5-S1 TFESI. continue percocet 5-325mg daily as needed for moderate to severe pain. f/u 3 months, sooner if needed
== END 2025-01-20 10:55 | disposition home or self-care (01) ==
LOC: PM 10:54
PROVIDERS: PCP Nurse Practitioner; Visit Provider Nurse Practitioner
DX: M48.062 Spinal stenosis, lumbar region with neurogenic claudication (principal)
CPT/HCPCS: G0463